=== PATIENT | female | born 1985 | race Caucasian/White ===

== ENCOUNTER 2019-12-17 23:22 | Observation (INO) | payer BC, SELFPAY ==
[2019-12-17 23:26] VITALS: BP 114/83; PULSE 63; RESP 16; TEMP 36.9; O2SAT 96; BMI 32.4
--- NOTE | 2019-12-17 23:48 | HMH.EDGENADL ---
ED Disposition Clinical Impression: Acute pancreatitis Qualifiers: Pancreatitis type: alcohol induced Acute pancreatitis complication: no infection or necrosis Qualified Code(s): K85.20 - Alcohol induced acute pancreatitis without necrosis or infection Disposition: Admitted as Observation Condition on Discharge: Fair Referrals: PCP,No [Primary Care Provider] - - Critical Care Critical Care Time: No Attestation: On 12/17/19, the high probability of a clinically significant, sudden or life threatening deterioration of the following system(s) required my full and direct attention, intervention and personal management. The time I documented below is in addition to time spent performing reported procedures but includes the following listed in this critical care notation. Medical Decision Making - Medical Records Medical records reviewed: Yes: I reviewed the patient's medical records. - Ramses Inquiry Pt receiving controlled substance: Yes Ramses was queried for this patient: Yes Reference #:: [id number] Risks and benefits of using a controlled substance: were not discussed with pt by me Comment: 6 rxs. last rx pregabilin. Vital Signs: 12/17/19 23:26 Temperature 98.4 F Temperature Source Oral Pulse Rate [Right Radial] 63 Respiratory Rate 16 Blood Pressure [Left Arm] 114/83 Blood Pressure Mean [Left Arm] 93 Blood Pressure Source [Left Arm] Automatic Cuff Blood Pressure Position [Left Arm] Supine 02 Sat by Pulse Oximetry 96 Oxygen Delivery Method Room Air - Lab Data Lab results reviewed: Yes: I reviewed the patient's lab results. Lab Results 12/17/19 23:50: WBC 10.0, RBC 4.68, Hgb 14.7, Hct 43.7, MCV 93.3, MCH 31.5 H, MCHC 33.7, RDW 13.5, Plt Count 208, MPV 8.3, Neut % (Auto) 53.0, Lymph % (Auto) 35.5, [place] % (Auto) 3.8, Eos % (Auto) 6.4, Baso % (Auto) 1.2, Neut # (Auto) 5.3, Lymph # (Auto) 3.6, [place] # (Auto) 0.4, Eos # (Auto) 0.6 H, Baso # (Auto) 0.1 12/17/19 23:50: Urine Color Yellow, Urine Appearance Clear, Urine pH 7.0, Ur Specific [place] 1.020, Urine Protein Negative, Urine Glucose (UA) Negative, Urine Ketones Negative, Urine Blood Negative, Urine Nitrate Negative, Urine Bilirubin Negative, Urine Urobilinogen 0.2, Ur Leukocyte Esterase Negative, Ur Squamous Epith Cells Occasional 12/17/19 23:50: Sodium 139, Potassium 3.9, Chloride 104, Carbon Dioxide 26, Anion Gap 12.9, BUN 11, Creatinine 0.60, Estimated Creat Clear 188, Estimated GFR 116, Est GFR ( Amer) 140, Glucose 95, Calcium 9.9, Total Bilirubin 0.2, AST 31, ALT 24, Alkaline Phosphatase 71, Total Protein 7.3, Albumin 4.5, Globulin 2.8, Albumin/Globulin Ratio 1.6, Amylase 137 H, Lipase 985 H 12/17/19 23:50: Serum HCG, Qual Negative 12/17/19 23:50: SARS-CoV-2 IgG Ab (Rapid) Negative, SARS-CoV-2 IgM Ab (Rapid) Negative 12/17/19 23:50: Plasma/Serum Alcohol < 10 Result diagrams: 12/17/19 23:50 12/17/19 23:50 Orders (Tests/Meds): ED MEDICATIONS Generic Name Dose Route Start Last Admin Trade Name Karen PRN Reason Stop Dose Admin Sodium Chloride 8 ml 12/18/19 00:12 Sodium Chloride 0.9% 10ml Vial IV 01/17/20 00:11 NEEDED PRN dilute pepcid Discontinued Medications Generic Name Dose Route Start Last Admin Trade Name [place] PRN Reason Stop Dose Admin Famotidine 20 mg 12/18/19 00:12 12/18/19 00:31 Famotidine 20mg/2ml Vial IV 12/18/19 00:13 20 mg ONCE ONE Administration Ioversol 75 ml 12/18/19 01:06 12/18/19 01:06 Ioversol-350 (74%) 100ml Vial IV 12/18/19 01:07 75 ml ONCE ONE Administration Protocol Ketorolac Tromethamine 30 mg 12/18/19 00:12 12/18/19 00:32 Ketorolac 30mg/Ml Vial IV 12/18/19 00:13 30 mg ONCE ONE Administration Metoclopramide HCl 5 mg 12/18/19 00:12 12/18/19 00:31 Metoclopramide Hcl 10mg/2ml Vial IVP 12/18/19 00:13 5 mg ONCE ONE Administration Morphine Sulfate 4 mg 12/18/19 01:15 Morphine 4mg/Ml Syringe IV 12/18/19 01:16 ONCE ONE Ondansetron HCl 4
[2019-12-18] VITALS (12 sets, daily range): BP systolic 90–131; BP diastolic 47–79; PULSE 54–91; RESP 14–19; TEMP 36.5–36.9; O2SAT 93–100; BMI 32.6
[2019-12-18 00:03] LABS: Basophils # 0.1 K/mm3 (0-0.2); Basophils % 1.2 % (0.1-2.0); Eosinophils # 0.6 K/mm3 (0.0-0.4); Eosinophils % 6.4 % (0.1-12.0); Hematocrit 43.7 % (37.0-47.0); Hemoglobin 14.7 g/dL (12.2-16.2); Lymphocytes # 3.6 K/mm3 (0.7-4.5); Lymphocytes % 35.5 % (10-50); Mean Corpuscular HGB Conc 33.7 g/dL (31.8-35.4); Mean Corpuscular Hemoglobin 31.5 pg (27.0-31.2); Mean Corpuscular Volume 93.3 fl (81-99); Mean Platelet Volume 8.3 fl (7.4-10.4); Monocytes # 0.4 K/mm3 (0.1-1.0); Monocytes % 3.8 % (1.7-9.3); Neutrophils # 5.3 K/mm3 (1.8-7.8); Platelet Count 208 K/mm3 (142-424); Red Blood Count 4.68 M/mm3 (4.20-5.40); Red Cell Distribution Width 13.5 % (11.5-17.5)
[2019-12-18 00:04] LABS: Microscopic,Cath URINE MICROSCOPIC (MICROSCOPIC)
[2019-12-18 00:09] LABS: Alanine Aminotransferase 24 U/L (12-78); Albumin Level 4.5 g/dl (3.5-5.0); Albumin/Globulin Ratio 1.6 (1.1-1.8); Alkaline Phosphatase 71 U/L (38-126); Amylase 137 U/L (30-110); Appearance,Urine/Cath CLEAR (Clear); Aspartate Amino Transferase 31 U/L (14-36); Bilirubin,Cath Negative (Negative); Bilirubin,Total 0.2 mg/dl (0.2-1.3); Blood Urea Nitrogen 11 mg/dl (7-17); Blood, Urine/Cath Negative (Negative); Calcium 9.9 mg/dl (8.4-10.2); Carbon Dioxide 26 mmol/L (22.0-30.0); Chloride 104 mmol/L (98-107); Color,Urine/Cath YELLOW (Yellow); Creatinine Clearance Estimated 188 mL/min (50-200); Estimated Glomerular Filt Rate 116 ml/min (>60); GFR (African American) 140 ML/MIN (>60); Globulin 2.8 g/dL (1.3-3.2); Glucose 95 mg/dl (74-100); Glucose,Urine/Cath (UA) Negative (Negative); Ketones,Urine/Cath Negative (Negative); Leukocyte Esterase,Cath Negative (Negative); Nitrate,Cath Negative (Negative); Potassium 3.9 mmoL/L (3.5-5.1); Protein,Urine/Cath Negative (Negative); Total Protein,Serum 7.3 g/dl (6.3-8.2); Urobilinogen,Cath 0.2 EU/dl (0.2)
[2019-12-18 00:10] LABS: Squamous Epithelial Ur./Cath Occasional #/hpf (0-5)
[2019-12-18 00:12] LABS: HCG Qualitative, Serum Negative (Negative)
[2019-12-18 00:13] LABS: Anion Gap 12.9 mEq/L (5-15); Sodium 139 mmol/L (136-145)
[2019-12-18 00:14] LABS: Lipase 985 U/L (23-300)
--- NOTE | 2019-12-18 00:18 | CT_ITS ---
PROCEDURE: CT ABDOMEN PELVIS W CON CLINICAL INDICATION: pancreatitis COMPARISON: No exams were available for comparison TECHNIQUE: IV Contrast: 75ML OPTIRAY 350 Oral Contrast none given Axial images obtained with sagittal and coronal reformats. All CT scans at the facility use one or more dose reduction, viz: automated exposure control, ma/kV adjustment per patient size (including targeted exams where dose is matched to indication, i.e. head), or iterative reconstruction technique. FINDINGS: Lower thorax: The lower lung sanderson are clear of infiltrate and there is no pleural fluid. There is an incompletely visualized noncalcified nodule right middle lobe 3-4 mm in size, if there is a strong smoking history consider follow-up CT scan chest. There is a well-defined smoothly marginated mass lower portion inner quadrant right breast probably a fibroadenoma and consider follow-up ultrasound right breast for additional evaluation. ABDOMEN: Liver: No masses or biliary dilatation. Gallbladder: Post cholecystectomy Pancreas: No masses or peripancreatic fluid collections. Spleen: unremarkable Adrenals: unremarkable Kidneys/ureters: The kidneys are normal size and show symmetrical function both appearing normal. ABDOMEN & PELVIS: Stomach bowel: The stomach and small bowel appear normal. The appendix is normal. There is moderate scattered stool and gas seen throughout the colon. Peritoneum: No abnormal fluid collections. No obvious inflammatory changes. No free air. Lymph nodes: No enlarged lymph nodes apparent. Vasculature: No evidence of abdominal aortic aneurysm. No retroperitoneal hemorrhage evident. Bones: No acute fracture PELVIS: Reproductive: The uterus is normal in size and in the midline. Bladder: The urinary bladder is moderately distended with urine and appears normal, there is no free fluid in the pelvis. Appendix: Unremarkable. No distention or periappendiceal phlegmonous change. IMPRESSION: No acute abdominal or pelvic pathology identified see discussion above regarding the partially visualized lung nodule and the small right breast mass. Dictated by: Dr. Simone Soto MD 12/18/2019 10:00 Dr. Simone Soto MD in [place] 12/18/2019 10:00
[2019-12-18 01:01] LABS: Coronavirus 19 IgG Antibody Negative (Negative); Coronavirus 19 IgM Antibody Negative (Negative)
[2019-12-18 01:39] LABS: Ethyl Alcohol < 10 mg/dl (0-10)
--- NOTE | 2019-12-18 02:50 | PC.NURSE ---
PT ARRIVED TO FLOOR VIA W/C FROM ED W/STAFF AT 0250
--- NOTE | 2019-12-18 03:38 | PC.NURSE ---
Pt A&OX4 lungs CTA. pt c/o abd pain medicated per APR.
[2019-12-18 06:28] LABS: Lipase 346 U/L (23-300)
--- NOTE | 2019-12-18 10:44 | HMH.HP ---
*Admission Date: 12/17/19 *Chief complaint: Abdominal pain *History of present illness: This 33-year-old white female was admitted through the emergency room with pancreatitis. Amylase and lipase were elevated. She has recently been binge drinking wine. The following is the ER narrative: Complains of midepigastric pain. States that she has had a soreness there for couple of days but it became severe tonight 1 hour after eating pizza. It radiates to her back. Nausea, but no vomiting. She has had prior cholecystectomy and prior pancreatitis. She says the pancreatitis was not gallbladder related, she had already had her gallbladder out. She says she does drink alcohol, she has had a bottle of wine and a couple of shots a day for the past 3 days. Denies fever, diarrhea. She drove herself to the hospital. Her pain feels similar to previous gallbladder and pancreatitis pain. The patient does admit to binge drinking. There is a family history of alcohol abuse. She has had a cholecystectomy for cholelithiasis and cholecystitis. She is not aware of her lipid status. [facility] History Medical History: Reports:: Anxiety Denies:: Cancer, Diabetes Mellitus Type 1, Diabetes Mellitus Type 2, MRSA, Urinary Tract Infection *Have you ever received a pneumonia vaccine?: No *Have you received a flu vaccine this season?: Yes Other Medical History: Reports: Fibromyalgia. Denies: Thyroid Disease Other Surgeries: Yes: Cholecystectomy (2012 cholelithiasis and cholecystitis), Dilation and Curettage. No: Amputation: No Fractures: No - *Social History Last grade of school completed: Some college Smoking Status: Current every day smoker (About 6 cigarettes a day. Has smoked since age of 17) Tobacco Type: cigarettes # Packs/Day (cigarettes): 1 Alcohol Intake: current Alcohol Intake Frequency:: holidays/special occasions only (Admits to binge drinking) Substance Use Type: marijuana Last Used Substance: hours (ago) *Occupational Status:: employed Housing: house Household Members: children (8-year-old autistic son. 6-year-old twin boys.) *Travel in the last 8 weeks: None Family Hx:: Anemia, Asthma, Coronary Artery Disease (Father), Alcoholism (Father and paternal grandmother), Other (Mother with fibromyalgia and neuropathy.) Comment: She has been with her significant other for 12 years. : 2 Para: 2 (Second delivery twins) Review of Systems - Constitutional Reports body ache(s), Reports fatigue - Eyes Reports blurry vision (OS for about 1 year. Describes inflammation ) - ENT Denies abnormal hearing - *Cardiovascular Denies chest pain - *Respiratory Denies chest congestion - *Gastrointestinal Reports abdominal pain, Reports constipation, Denies coffee ground vomit, Denies pain with swallowing, Denies vomiting - *Genitourinary Denies abnormal periods - *Musculoskeletal Reports joint swelling (Knees osteoarthritis ) - Integumentary/Breasts Reports lesions (Known cystic lesion right inferior breast.) - Psychiatric Reports anxiety - Endocrine Denies rapid, pounding, or irregular heartbeat - Hematologic/Lymphatic Denies easy bleeding Meds Home Medications Medication Instructions Recorded Confirmed Type Pregabalin [Lyrica 150mg Cap] 150 mg PO BID 12/18/19 12/18/19 History Allergies Allergy/AdvReac Type Severity Reaction Status Date / Time tramadol Allergy Verified 12/18/19 00:07 Exam Vital signs and Labs for Last 24 Hours: Temp Pulse Resp BP Pulse Ox 98.5 F 61 19 109/57 L 100 12/18/19 08:00 12/18/19 08:00 12/18/19 08:00 12/18/19 08:00 12/18/19 08:00 Laboratory Results - last 24 hr 12/17/19 23:50: WBC 10.0, RBC 4.68, Hgb 14.7, Hct 43.7, MCV 93.3, MCH 31.5 H, MCHC 33.7, RDW 13.5, Plt Count 208, MPV 8.3, Neut % (Auto) 53.0, Lymph % (Auto) 35.5, [place] % (Auto) 3.8, Eos % (Auto) 6.4, Baso % (Auto) 1.2, Neut # (Auto) 5.3, Lymph # (Auto) 3.6, [place] # (Auto) 0.4, Eos # (Auto) 0.
[2019-12-18 11:28] LABS: Erythrocyte Sedimentation Rate 14 mm/hr (0-20)
[2019-12-18 11:49] LABS: Thyroid Stimulating Hormone 5.68 uIU/mL (0.465-4.68)
[2019-12-18 12:07] LABS: Vitamin B12 591 pg/mL (239-931)
--- NOTE | 2019-12-18 14:29 | P.CONPHA_ITS ---
[facility] Pharmacy VTE Monitoring - Patient Demographics Admission date: 12/18/19 Report Date: 12/18/19 Time: 14:29 Allergies/Adverse Reactions: Patient Allergies tramadol Allergy (Verified 12/18/19 00:07) Height: 1.65 m Weight: 88.9 kg Patient Problems: Current Active Problems Acute pancreatitis (Acute) Alcohol consumption binge drinking (Acute) Anxious depression (Acute) Necrobiosis lipoidica (Acute) Cyst of right breast (Acute) Blurry vision, left eye (Acute) Fibromyalgia (Acute) - VTE Risk Labs: VTE Related Lab Results Hgb 14.7 g/dL (12.2-16.2) 12/17/19 23:50 Hct 43.7 % (37.0-47.0) 12/17/19 23:50 Plt Count 208 K/mm3 (142-424) 12/17/19 23:50 BUN 11 mg/dl (7-17) 12/17/19 23:50 Creatinine 0.60 mg/dl (0.52-1.04) 12/17/19 23:50 Estimated Creat Clear 188 mL/min (50-200) 12/17/19 23:50 Was VTE Risk Assessment Performed: Yes VTE Score: 0 VTE Risk Level: Very Low Risk - Prophylaxis VTE Prophylaxis Ordered?: Yes Types of VTE Prophylaxis: TEDS Knee High Location of Applied Device: Bilateral Lower Extremeties
--- NOTE | 2019-12-18 17:40 | PC.NURSE ---
PATIENT A&O X4, LUNGS CLEAR, PULSES EQUAL. AMBDOMEN SOFT, TENDER TO TOUCH. PATIENT AMBULATES IN ROOM, SELF SHOWERED. TOLERATES CLEAR LIQUID DIET. PATIENT COMPLAINS OF PAIN 09/01. THIS RN ADMINISTERED PAIN MEDICATION ORDERED. PATIENT COMPLAINED OF MORPHINE NOT KEEPING PAIN LEVEL DOWN. THIS RN PHONED DR. MARY ALICE MD ORDERED LEVSIN 0.125MG Q6HRS. NO OTHER CONCERNS AT THIS TIME.
--- NOTE | 2019-12-18 20:00 | PC.NURSE ---
K-pad applied to pt's abdomen at this time. MD Amanda requested for GI consult to be ordered for am. Orders placed at this time.
[2019-12-19] VITALS (19 sets, daily range): BP systolic 90–142; BP diastolic 60–97; PULSE 42–74; RESP 16–20; TEMP 36.4–36.9; O2SAT 93–100; BMI 31.8; BMI 31.9
--- NOTE | 2019-12-19 02:48 | PC.NURSE ---
Pt is alert and oriented x4. No acute changes noted from previous shift. Upon beginning of shift pt noted crying in bed. States the morphine is not working for her and she needs something stronger for the pain. Rates pain 9/10 on pain scale at this time. Spoke with Vasiliy NAIDU, gave order for one time dose of Morphine 2 mg IV for pain. Administered per MAR. Applied K-pad to abdomen for pain relief. Pt states the k-pad has helped tremendously with the pain this shift. Pt tolerated the one time dose of Morphine well, upon reassessment pt noted rested with eyes closed. Pt rested well intermittently t/o shift. Also administered Morphine 4 mg per APR q4h prn, pt tolerated well. Bilateral breath sounds noted clear t/o upon auscultation. Tolerated RA well with no c/o SOA. Abdomen noted soft and tender upon midline upper quads. Remains NPO since 0000 for GI consult in am, pt aware. Pt tolerates ambulation well independently to and from bathroom. Adequate urine output noted thus far this shift. Urine noted clear and bright yellow in color. No BM thus far. No edema noted. Refused TEDS. VSS. Remains safe. Call light within reach. Will continue to monitor.
[2019-12-19 07:13] LABS: Amylase 54 U/L (30-110); Lipase 42 U/L (23-300)
--- NOTE | 2019-12-19 08:21 | HMH.ACPN2 ---
Internal Medicine - PN: Subj *Date: 12/19/19 *Time: 08:21 Interval history: Patient is tearful this morning. She states the morphine does not help her abdominal pain at all. She states the Levsin helps a little bit more as does the heating pad. She also is complaining of a headache. She has just had Zofran for nausea. She has been n.p.o. since midnight for a GI consult.. She has not vomited although she is nauseated. Bowels have not moved. She does ambulate to the bathroom without difficulty. Amylase and lipase have returned to normal at 54/42. TSH is slightly elevated at 5.68. Exam Vital signs and Labs for Last 24 Hours: Temp Pulse Resp BP Pulse Ox 97.9 F 56 L 20 124/68 98 12/19/19 07:50 12/19/19 07:50 12/19/19 07:50 12/19/19 07:50 12/19/19 07:50 Laboratory Results - last 24 hr 12/18/19 11:01: ESR 14 12/18/19 11:01: Vitamin B12 591, TSH 5.68 H 12/19/19 05:50: Amylase 54, Lipase 42 I & O for Last 24 hours: Intake & Output 12/16/19 12/17/19 12/18/19 12/19/19 11:59 11:59 11:59 11:59 Intake Total 120 / 120 1453 / 1453 Output Total 700 / 700 Balance 120 / 120 753 / 753 Weight 195 lb 15.855 oz 191 lb 2.252 oz - Constitutional no acute distress Comments: Tearful - *Routine Respiratory Exam Present: CTA bilaterally - *Routine Cardiovascular Exam Present: RRR - *Routine Abdominal Exam Present: soft, normoactive bowel sounds, tenderness (Epigastrium and left upper quadrant.), obese - *Routine Extremities Exam Absent: edema, calf tenderness - *Routine Neurological Exam Present: alert, oriented X3 Assessment and Plan (1) Acute pancreatitis Status: Acute Qualifiers: Pancreatitis type: alcohol induced Acute pancreatitis complication: no infection or necrosis Qualified Code(s): K85.20 - Alcohol induced acute pancreatitis without necrosis or infection Category: Medical Code(s): K85.90 - Acute pancreatitis without necrosis or infection, unspecified (2) Alcohol consumption binge drinking Status: Acute Category: Social Hx Code(s): F10.10 - Alcohol abuse, uncomplicated (3) Anxious depression Status: Acute Category: Medical Code(s): F41.8 - Other specified anxiety disorders (4) Necrobiosis lipoidica Status: Acute Category: Medical Code(s): L92.1 - Necrobiosis lipoidica, not elsewhere classified (5) Cyst of right breast Status: Acute Category: Medical Code(s): N60.01 - Solitary cyst of right breast (6) Blurry vision, left eye Status: Acute Category: Medical Code(s): H53.8 - Other visual disturbances (7) Fibromyalgia Status: Acute Category: Medical Code(s): M79.7 - Fibromyalgia (8) Abdominal pain Status: Acute Category: Medical Code(s): R10.9 - Unspecified abdominal pain - Assessment and plan all Dx Assessment and Plan for all problems:: We will add Pepcid twice daily to see if this helps symptoms. She has a GI consult today.
--- NOTE | 2019-12-19 11:19 | PC.NURSE ---
DURING AM ROUNDS WITH DANIA CUELLAR, PATIENT BEGAN SAYING SHE WAS GOING TO VOMIT. THIS RN PROVIDED A BASIN. PATIENT SAT UP IN BED AND BEGAN STICKING HER FINGER DOWN HER THROAT. THIS RN INSTRUCTED PATIENT TO NOT STICK FINGER DOWN HER THROAT. PATIENT STATED I NEED TO, IT WILL MAKE ME FEEL BETTER. PATIENT CONTINUED TO ATTEMPT TO FORCE HERSELF TO VOMIT. THIS RN INSTRUCTED HER NOT TO FORCE HERSELF TO VOMIT. THIS RN LEFT THE ROOM, PATIENT CALLED FOR RN. PATIENT PROVIDED BASIN WITH YELLOW MUCUS AND STREAKS OF BRIGHT RED BLOOD. PATIENT STATED, THERE IS BLOOD, SOMETHING IS WRONG. THIS RN STATED THAT THE BLOOD IS MORE THAN LIKELY FROM HER PUTTING HER FINGER DOWN HER THROAT AND THAT THE EDG WILL SHOW IF THERE IS SOMETHING ELSE. PATIENT VERBALIZED AN UNDERSTANDING.
--- NOTE | 2019-12-19 12:25 | HMH.ANESCL ---
[facility] Anesthesia Checklist - Patient Identification Patient Identification: Arm Band, Verbal (Name & ) - Structural Data Admitted From: Home Planned Operative Procedure/s: EGD Consent for Planned Operative Procedure(s) Verified: Yes Verified Documents: Surgical Consent, History and Physical - NPO Status Verified Time NPO: 00:00 - Chart Verification Results Verified: CBC, BMP, HCG - Additional verifications Patient : No Anesthesia Reactions: No - Airway Assessment C-Spine Mobility Assessed: Yes (MP 2, TMD 3) TMJ Mobility Assessed: Yes Dentition: Good Dentition - Neurological Assessment Level of Consciousness: Awake, Alert, Appropriate, Follows Commands Hx Seizures: No Numbness or tingling in extremities: No - Anesthesia Plan Anesthesia Risk discussed: Yes Anesthesia Plan: Verified ASA Class: III Anesthesia Type: MAC [facility] History I have reviewed the patient's past medical history: Yes Medical History: Reports:: Anxiety Denies:: Cancer, Diabetes Mellitus Type 1, Diabetes Mellitus Type 2, MRSA, Urinary Tract Infection *Have you ever received a pneumonia vaccine?: No *Have you received a flu vaccine this season?: Yes Other Medical History: Reports: Fibromyalgia. Denies: Thyroid Disease Comment:: obesity Anesthesia experience/problems:: No prior complications Other Surgeries: Yes: Cholecystectomy (2012 cholelithiasis and cholecystitis), Dilation and Curettage. No: Amputation: No Fractures: No - *Social History Last grade of school completed: Some college Smoking Status: Current every day smoker (About 6 cigarettes a day. Has smoked since age of 17) Tobacco Type: cigarettes # Packs/Day (cigarettes): 1 Alcohol Intake: current Alcohol Intake Frequency:: holidays/special occasions only (Admits to binge drinking) Substance Use Type: marijuana Last Used Substance: hours (ago) *Occupational Status:: employed Housing: house Household Members: children (8-year-old autistic son. 6-year-old twin boys.) *Travel in the last 8 weeks: None - Psychiatric History Pschychiatric History:: Reports:: Anxiety Family Hx:: Anemia, Asthma, Coronary Artery Disease (Father), Alcoholism (Father and paternal grandmother), Other (Mother with fibromyalgia and neuropathy.) Para: 2 (Second delivery twins)
--- NOTE | 2019-12-19 12:40 | HMH.PROC ---
[facility] Procedure Note Procedure Note:: Upper Endoscopy Procedure Report: Esophagogastroduodenoscopy with cold biopsies and TTS balloon dilation Endoscopost: Jenaro Heller II, MD Referring Physician: Marly Granger PA-C ([facility]) Date of Procedure: December 19, 2019 Equipment: Olympus GIF 180 standard upper endoscope Sedation: MAC sedation Indications: Mrs. Mcnally is a 34-year-old female who reports excruciating midepigastric abdominal pain. She also has had some midsternal chest pain and pressure, bloating, belching, nausea and early satiety. She has some pyrosis and heartburn. She has not been on any medications. She does have some intermittent globus and dysphagia. She has some chronic constipation with irritable bowel syndrome. She has had some bile emesis and minor hematemesis recently. The patient does have a prior history of pancreatitis and also has intermittent binge alcohol drinking. She has had marked stress and anxiety and cares for her 3 children (twins that are 6 and 8-year-old with autism). The patient did have a mildly elevated lipase level (346). The remainder of her labs revealed normal white blood cell count 10.0, hemoglobin 14.7 and hematocrit 43.7. The patient CT scan of the abdomen and pelvis did show normal appearance to the stomach and small intestine as well as normal appearance to the pancreas. There was a moderate amount of retained stool and gas throughout the colon. The patient has had prior cholecystectomy. Procedure: Prior to the procedure, a history and physical exam was performed, and patient's medications and allergies were reviewed. The risks, benefits and alternatives of the sedation and procedure were discussed with the patient. All questions were answered and informed consent was obtained. The patient was brought to the procedure room. Patient identification and proposed procedure were verified by the physician and the nurse. The patient was placed in a left lateral decubitus position and the scope was passed under direct vision. Throughout the procedure, the patient's blood pressure, pulse, and oxygen saturations were monitored continuously. The upper GI endoscopy was accomplished without difficulty. The patient tolerated the procedure well. Findings: The scope was passed directly into the upper esophagus and advanced to the third portion of the duodenum. The post bulbar duodenum and duodenal bulb were normal with normal mucosa and conniventes. Cold biopsies were taken from the second portion of the duodenum and duodenal bulb to rule out celiac disease. The scope was withdrawn through a normal duodenal bulb and pylorus into the stomach. There was moderate to marked bile reflux with moderate linear reactive gastropathy. The remainder of the antrum, body and fundus of the stomach were grossly normal. Upon retroflexion there was no hiatal hernia. 2 biopsies were taken in the antrum and along the lesser curvature for histology to rule out gastritis and/or H pylori. The scope was then withdrawn into the esophagus. There was no evidence of reflux esophagitis or Youngblood's. There was no Schatzki's ring. There were strong tertiary contractions and evidence of moderate esophageal dysmotility. The entire esophagus was dilated to 60 Pashto/20 mm with a TTS hydrostatic balloon. There was some mild resistance at the cricopharyngeus. The remainder of the esophageal mucosa was normal. Impression: 1. Nonerosive GERD with moderate esophageal dysmotility and cricopharyngeal spasm 2. Moderate bile reflux with moderate linear reactive gastropathy Plan: I will follow-up the biopsies. 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 I would recommend dietary measures, fiber bowel regimen and additional treatment for visceral sensitivity. We will discuss the findings as well as treatment options today.
--- NOTE | 2019-12-19 13:45 | SUR.PHASEII ---
DR GONZALEZ WAS AT BEDSIDE TO DISCUSS TREATMENT PLAN OF BUSPAR, KONSUL AND MIRILAX DAILY, AND DIET SHEET. FOLLOW UP WITH STALIN 03/05/20 @ 3:00PM. PT VERBALIZED UNDERSTANDING OF ALL INFO. REPORT CALLED TO TAMIKO WALKER ON MED/SURG FLOOR AND TRANSFERRED PER W/C
--- NOTE | 2019-12-19 17:22 | PC.NURSE ---
PATIENT A&O X4, LUNGS CLEAR, PULSES EQUAL. PATIENT TOLERATED EGD WELL. PATIENT HAS HAD COMPLAINT OF PAIN AND NAUSEA SINCE ARRIVING BACK ON FLOOR. THIS RN ADMINISTERED MEDICATIONS ACCORDINGLY. PATIENT AMBULATES IN ROOM, TOLERATES WELL. NO OTHER CONCERNS AT THIS TIME.
--- NOTE | 2019-12-19 17:50 | HMH.CONS ---
*Admission Date: 12/18/19 *Reason for consult:: Abdominal pain/pancreatitis *History of present illness: This is a 34-year-old female patient who was admitted through the ER for abdominal pain. She admits to binge drinking over the weekend and has history of pancreatitis, once due to gallstones and then again a year ago for unknown reason. Upon arrival the patient's amylase was 137 and her lipase was 985 but she had no CT evidence of pancreatitis at that time. Her ESR and LFTs were all within normal limits. Since admission with IV fluids, her amylase and lipase have come down to within normal limits of 54/42 today. The patient reports that she is not drink every day and she will go weeks without any alcohol use. She does report that she occasionally binge drinks. She admits to a bottle of wine plus couple of shots for 3 days in a row prior to this pancreatitis episode. Even though her amylase and lipase have completely normalized with no evidence of pancreatitis on CT scan she still has significant epigastric discomfort. It does show moderate stool and gas throughout her colon on CT. She rates it a 10 out of 10 and is tearful in the room when discussing it today. She also notes severe nausea and occasional vomiting. On exam she is guarding and quite tender to palpation epigastric area is mildly tender in left upper and left lower quadrant. She denies any NSAID use but for maybe a couple of times per month. She does use marijuana every day. Her only medical history of fibromyalgia. She reports some occasional heartburn but she does not take anything for it as it goes away on its own. She does report some occasional constipation and has not had a bowel movement since admission to the hospital. She did have cholecystectomy in 2011. [facility] History I have reviewed the patient's past medical history: Yes Medical History: Reports:: Anxiety Denies:: Cancer, Diabetes Mellitus Type 1, Diabetes Mellitus Type 2, MRSA, Seizures, Urinary Tract Infection *Have you ever received a pneumonia vaccine?: No *Have you received a flu vaccine this season?: Yes Other Medical History: Reports: Fibromyalgia. Denies: Thyroid Disease Anesthesia experience/problems:: No prior complications Other Surgeries: Yes: Cholecystectomy (2012 cholelithiasis and cholecystitis), Dilation and Curettage. No: Amputation: No Fractures: No - *Social History Last grade of school completed: Some college Smoking Status: Current every day smoker (About 6 cigarettes a day. Has smoked since age of 17) Tobacco Type: cigarettes # Packs/Day (cigarettes): 1 Alcohol Intake: current Alcohol Intake Frequency:: holidays/special occasions only (Admits to binge drinking) Substance Use Type: marijuana Last Used Substance: hours (ago) *Occupational Status:: employed Housing: house Household Members: children (8-year-old autistic son. 6-year-old twin boys.) *Travel in the last 8 weeks: None - Psychiatric History Pschychiatric History:: Reports:: Anxiety Family Hx:: Anemia, Asthma, Coronary Artery Disease (Father), Alcoholism (Father and paternal grandmother), Other (Mother with fibromyalgia and neuropathy.) Para: 2 (Second delivery twins) Review of Systems - Constitutional Reports fatigue, Reports headache(s), Denies anorexia, Denies chills, Denies weakness - Eyes Denies change in vision - ENT Denies difficulty swallowing, Denies bad breath, Denies hoarseness, Denies mouth lesions, Denies sore throat, Denies throat swelling, Denies tongue swelling Comments: She does report occasional heartburn that resolves on its own - *Cardiovascular Denies chest pain, Denies shortness of breath, Denies leg swelling - *Respiratory Denies chest congestion, Denies cough, Denies shortness of breath, Denies stridor, Denies wheezing - *Gastrointestinal Reports abdominal pain, Reports constipation, Reports heartburn, Reports nausea, Reports vomiting, Denies belching, Denies bloating, Denies [place]
--- NOTE | 2019-12-19 19:13 | PC.NURSE ---
report given to tomas
[2019-12-19 23:16] LABS: RA Latex Turbid. <10.0 IU/mL (0.0-13.9)
[2019-12-20 04:00] VITALS: BP 108/49; PULSE 52; RESP 18; TEMP 36.7; O2SAT 95
--- NOTE | 2019-12-20 04:17 | PC.NURSE ---
Pt has slept intermittently this shift. Morphine has been administered thrice thus far in shift for pain control. Denies nausea/soa. Pt ambulates without difficulty.
[2019-12-20 05:00] VITALS: BMI 33.2
[2019-12-20 07:34] VITALS: BP 116/88; PULSE 84; RESP 20; TEMP 36.7; O2SAT 98
--- NOTE | 2019-12-20 08:09 | HMH.ACPN2 ---
Internal Medicine - PN: Subj *Date: 12/20/19 *Time: 08:09 Interval history: Patient states she feels no better. She states her pain is no better. She would rather have Dilaudid and morphine. She reports EGD yesterday. She has been started on buspirone per Dr. Heller. She states that sometimes this has helped. She continues with nausea. She states she did vomit yesterday. She states she is not able to eat. Her bowels have not moved since before admission. She states she is not passing any gas. She has ambulated to the bathroom but has not been out of bed otherwise. Exam Vital signs and Labs for Last 24 Hours: Temp Pulse Resp BP Pulse Ox 98.0 F 84 20 116/88 98 12/20/19 07:34 12/20/19 07:34 12/20/19 07:34 12/20/19 07:34 12/20/19 07:34 Laboratory Results - last 24 hr 12/18/19 05:40: Rheumatoid Factor Titer <10.0 I & O for Last 24 hours: Intake & Output 12/17/19 12/18/19 12/19/19 12/20/19 11:59 11:59 11:59 11:59 Intake Total 120 / 120 1453 / 1453 3269 / 3269 Output Total 700 / 700 Balance 120 / 120 753 / 753 3269 / 3269 Weight 195 lb 15.855 oz 191 lb 2.252 oz 199 lb 4.766 oz - Constitutional no acute distress Comments: Continues to cry whenever talking with her. - *Routine Respiratory Exam Present: CTA bilaterally (Anteriorly and posteriorly) - *Routine Cardiovascular Exam Present: RRR - *Routine Abdominal Exam Present: soft, normoactive bowel sounds, tenderness (In all upper quadrants) - *Routine Extremities Exam Absent: edema - *Routine Neurological Exam Present: alert, oriented X3 - Routine Psychiatric Exam Comments: Tearful. States it [birth year] yesterday. States she has 3 children at home. States she still has terrible pain. Assessment and Plan (1) Acute pancreatitis Status: Acute Qualifiers: Pancreatitis type: alcohol induced Acute pancreatitis complication: no infection or necrosis Qualified Code(s): K85.20 - Alcohol induced acute pancreatitis without necrosis or infection Category: Medical Code(s): K85.90 - Acute pancreatitis without necrosis or infection, unspecified (2) Alcohol consumption binge drinking Status: Acute Category: Social Hx Code(s): F10.10 - Alcohol abuse, uncomplicated (3) Anxious depression Status: Acute Category: Medical Code(s): F41.8 - Other specified anxiety disorders (4) Necrobiosis lipoidica Status: Acute Category: Medical Code(s): L92.1 - Necrobiosis lipoidica, not elsewhere classified (5) Cyst of right breast Status: Acute Category: Medical Code(s): N60.01 - Solitary cyst of right breast (6) Blurry vision, left eye Status: Acute Category: Medical Code(s): H53.8 - Other visual disturbances (7) Fibromyalgia Status: Acute Category: Medical Code(s): M79.7 - Fibromyalgia (8) Abdominal pain Status: Acute Category: Medical Code(s): R10.9 - Unspecified abdominal pain - Assessment and plan all Dx Assessment and Plan for all problems:: Patient has been started on buspirone and is on Pepcid plan as well. Encouraged to increase her activity. We will add MiraLAX.
[2019-12-20 15:26] VITALS: BP 114/75; PULSE 57; RESP 20; TEMP 36.8; O2SAT 99
[2019-12-20 20:00] VITALS: BP 114/59; PULSE 50; RESP 17; TEMP 36.9; O2SAT 100
--- NOTE | 2019-12-20 20:06 | PC.NURSE ---
PATIENT A&O X4, LUNGS CLEAR, PULSES EQUAL. PATIENT AMBULATES IN ROOM, STEADY GAIT, UP TO CHAIR FOR MOST OF THIS RN SHIFT. PATIENT REQUESTED THAT THIS RN ASK MD FOR A LONGER LASTING PAIN MEDICATION, SOMETHING THAT WILL HELP IN BETWEEN THE MORPHINE. 1412: EVS PRESENTED TO THIS RN A SMALL LIGHT BLUE PILL THAT WAS FOUND ON PATIENT'S TOILET. 1415: PHARMACY IDENTIFIED PILL CLONAZEPAM 1425: THIS RN SPOKE WITH DR. WHEAT, REPORTED FINDING OF PILL AND PATIENT'S REQUEST. NO NEW ORDERS. NO NEW CONCERNS AT END OF THIS RN SHIFT.
[2019-12-21 04:00] VITALS: BP 107/69; PULSE 44; RESP 19; TEMP 36.6; O2SAT 98
--- NOTE | 2019-12-21 04:45 | PC.NURSE ---
Addendum entered by Sherrill Persaud RN 12/21/19 05:03: Pt has had no BM this shift. Original Note: Pt is currently sleeping in bed. Pt has c/o RLQ stabbing pain t/o this shift. PRN pain meds given per APR. Bilat lung sounds are clear t/o. Actvie bowel sounds heard in all 4 quads. Pt did have x1 episode of N/V this shift. Pt refused PO phenergan this shift stating it makes me too drowsy Pt requested PRN zofran in replace of scheduled phenergan. Pt has stated she is getting very little relief from PRN morphine. This nurse has offered warm blankets, suggested to pt to apply kpad to abdomen, and position changes with little relief. Pt did take a shower this shift and stated some relief from that. Pt has ambulated to and from bathroom multiple times this shift. Gait and balance remains satisfactory. No other complaints or acute changes this shift. Will continue to monitor.
[2019-12-21 05:00] VITALS: BMI 33.4
--- NOTE | 2019-12-21 06:31 | PC.NURSE ---
Since last note, pt has had a BM. Pt states BM was dark brown and hard . Pt is also c/o throat pain. Upon assessment throat is pink with no redness noted
[2019-12-21 08:00] VITALS: BP 105/56; PULSE 79; RESP 15; TEMP 36.5; O2SAT 100
--- NOTE | 2019-12-21 08:23 | PC.NURSE ---
PT HAS REFUSED CYMBALTA AT THIS TIME, SHE STATED THAT CYMBALTA MAKES ME REALLY SICK .
--- NOTE | 2019-12-21 09:27 | CT_ITS ---
PROCEDURE: CT ABDOMEN PELVIS W CON CLINICAL INDICATION: persistant pain persistant pain, nausea, clinical suspicion of possible pancreatitis COMPARISON: CT CT ABDOMEN PELVIS W CON from 12/18/2019 TECHNIQUE: IV Contrast: 75ML OPTIRAY 350 Oral Contrast 20ml Gastroview Axial images obtained with sagittal and coronal reformats. All CT scans at the facility use one or more dose reduction, viz: automated exposure control, ma/kV adjustment per patient size (including targeted exams where dose is matched to indication, i.e. head), or iterative reconstruction technique. FINDINGS: Lower thorax: There is minimal bilateral basilar atelectasis or scarring. There is no pleural fluid. Cardiac size is borderline. ABDOMEN: Liver: No masses or biliary dilatation. Gallbladder: Nondistended. No radio opaque stones. Pancreas: The pancreas is normal in size and there are no findings to suggest pancreatitis. Spleen: unremarkable Adrenals: unremarkable Kidneys/ureters: The kidneys are normal in size and show symmetrical function both appearing normal. ABDOMEN & PELVIS: Stomach bowel: The stomach and duodenal sweep appear normal. The small bowel is well opacified with oral contrast and appears normal. The appendix is normal. There is a large amount stool in the upper ascending colon and hepatic flexure. The descending and sigmoid colon are decompressed. The rectum is decompressed as well and appears normal. Peritoneum: No abnormal fluid collections. No obvious inflammatory changes. No free air. Lymph nodes: No enlarged lymph nodes apparent. Vasculature: No evidence of abdominal aortic aneurysm. No retroperitoneal hemorrhage evident. Bones: No acute fracture PELVIS: Reproductive: unremarkable the uterus is normal in size and in the midline. The bilateral ovaries appear normal. There is a small amount of fluid in the cul-de-sac slightly more than typically seen due to physiologic causes. Cul-de-sac fluid was not seen on the recent exam 12/18/2019 Bladder: The urinary bladder is moderately distended with urine and appears normal. Appendix: Unremarkable. No distention or periappendiceal phlegmonous change. IMPRESSION: No definite findings for pancreatitis. Large amount of right-sided stool, new finding of small to moderate amount of cul-de-sac fluid representing the only real interval change in the study from the recent exam. Dictated by: Dr. Simone Soto MD 12/21/2019 13:24 Dr. Simone Soto MD in [facility] 12/21/2019 13:24
--- NOTE | 2019-12-21 09:32 | HMH.ACPN2 ---
Internal Medicine - PN: Subj *Date: 12/21/19 *Time: 09:32 Interval history: She continues to complain of abdominal pain and requires pain medication. She had a normal bowel movement this morning. During the night she had some acute pain in the right lower quadrant and vomited. Her abdomen is soft with some tenderness in the right lower quadrant. Exam Vital signs and Labs for Last 24 Hours: Temp Pulse Resp BP Pulse Ox 97.9 F 44 L 19 107/69 L 98 12/21/19 04:00 12/21/19 04:00 12/21/19 04:00 12/21/19 04:00 12/21/19 04:00 I & O for Last 24 hours: Intake & Output 12/18/19 12/19/19 12/20/19 12/21/19 11:59 11:59 11:59 11:59 Intake Total 120 / 120 1453 / 1453 3629 / 3629 1920 / 1920 Output Total 700 / 700 Balance 120 / 120 753 / 753 3629 / 3629 1920 / 1920 Weight 195 lb 15.855 oz 191 lb 2.252 oz 199 lb 4.766 oz 200 lb 9.93 oz - Constitutional no acute distress - *Routine Respiratory Exam Present: CTA bilaterally - *Routine Cardiovascular Exam Present: RRR - *Routine Abdominal Exam Present: soft, normoactive bowel sounds, tenderness (Right lower quadrant), obese - *Routine Extremities Exam Absent: edema Assessment and Plan (1) Acute pancreatitis Status: Acute Qualifiers: Pancreatitis type: alcohol induced Acute pancreatitis complication: no infection or necrosis Qualified Code(s): K85.20 - Alcohol induced acute pancreatitis without necrosis or infection Category: Medical Code(s): K85.90 - Acute pancreatitis without necrosis or infection, unspecified (2) Alcohol consumption binge drinking Status: Acute Category: Social Hx Code(s): F10.10 - Alcohol abuse, uncomplicated (3) Anxious depression Status: Acute Category: Medical Code(s): F41.8 - Other specified anxiety disorders (4) Necrobiosis lipoidica Status: Acute Category: Medical Code(s): L92.1 - Necrobiosis lipoidica, not elsewhere classified (5) Cyst of right breast Status: Acute Category: Medical Code(s): N60.01 - Solitary cyst of right breast (6) Blurry vision, left eye Status: Acute Category: Medical Code(s): H53.8 - Other visual disturbances (7) Fibromyalgia Status: Acute Category: Medical Code(s): M79.7 - Fibromyalgia (8) Abdominal pain Status: Acute Category: Medical Code(s): R10.9 - Unspecified abdominal pain - Assessment and plan all Dx Assessment and Plan for all problems:: Repeat lab work. Saline lock IV. Repeat CT scan with contrast due to persistent pain.
[2019-12-21 10:45] LABS: Basophils # 0.1 K/mm3 (0-0.2); Basophils % 0.8 % (0.1-2.0); Eosinophils # 0.3 K/mm3 (0.0-0.4); Eosinophils % 4.3 % (0.1-12.0); Hematocrit 39.9 % (37.0-47.0); Lymphocytes # 2.6 K/mm3 (0.7-4.5); Lymphocytes % 36.2 % (10-50); Mean Corpuscular HGB Conc 32.6 g/dL (31.8-35.4); Mean Corpuscular Hemoglobin 31.7 pg (27.0-31.2); Mean Corpuscular Volume 97.4 fl (81-99); Mean Platelet Volume 8.2 fl (7.4-10.4); Monocytes # 0.2 K/mm3 (0.1-1.0); Monocytes % 2.9 % (1.7-9.3); Neutrophils # 4.1 K/mm3 (1.8-7.8); Neutrophils % 55.9 % (37.0-80.0); Platelet Count 177 K/mm3 (142-424); Red Cell Distribution Width 13.4 % (11.5-17.5); White Blood Count 7.3 K/mm3 (4.8-10.8)
[2019-12-21 10:59] LABS: Chloride 106 mmol/L (98-107); Sodium 142 mmol/L (136-145)
[2019-12-21 11:00] LABS: Potassium 3.3 mmoL/L (3.5-5.1)
[2019-12-21 11:01] LABS: Lipase 56 U/L (23-300)
[2019-12-21 11:02] LABS: Alanine Aminotransferase 26 U/L (12-78); Amylase 112 U/L (30-110); Anion Gap 8.3 mEq/L (5-15); Aspartate Amino Transferase 40 U/L (14-36); Blood Urea Nitrogen 5 mg/dl (7-17); Carbon Dioxide 31 mmol/L (22.0-30.0); Creatinine Clearance Estimated 164 mL/min (50-200); Estimated Glomerular Filt Rate 96 ml/min (>60); GFR (African American) 117 ML/MIN (>60)
[2019-12-21 11:03] LABS: Albumin Level 3.7 g/dl (3.5-5.0); Albumin/Globulin Ratio 1.5 (1.1-1.8); Alkaline Phosphatase 54 U/L (38-126); Bilirubin,Total 0.5 mg/dl (0.2-1.3); Calcium 8.4 mg/dl (8.4-10.2); Globulin 2.4 g/dL (1.3-3.2); Glucose 87 mg/dl (74-100); Total Protein,Serum 6.1 g/dl (6.3-8.2)
--- NOTE | 2019-12-21 15:09 | DIET.NUTRFU ---
Pt states she has thrown up after majority of meals but that everything is good and has no diet change requests. PO intake 50-75% with well tolerance documented all meals. Pt has been educated on nausea management and making bland menu selections as well as on her therapeutic diet. Weight up 3# t/o stay. Continuing to monitor pt/further diagnostic findings.
[2019-12-21 16:00] VITALS: BP 106/58; PULSE 44; RESP 14; TEMP 36.1; O2SAT 99
--- NOTE | 2019-12-21 18:29 | P.PN_ITS ---
Internal Medicine - PN: Subj *Date: 12/21/19 *Time: 18:29 Interval history: CT report shows new fluid in Cul-de-sac. Ruptured cyst? Vaginitis? Will request Converting Supervisor consult. Vaginal culture ordered. Exam Vital signs and Labs for Last 24 Hours: Temp Pulse Resp BP Pulse Ox 97.0 F L 44 L 14 106/58 L 99 12/21/19 16:00 12/21/19 16:00 12/21/19 16:00 12/21/19 16:00 12/21/19 16:00 Laboratory Results - last 24 hr 12/21/19 10:10: WBC 7.3, RBC 4.10 L, Hgb 13.0, Hct 39.9, MCV 97.4, MCH 31.7 H, MCHC 32.6, RDW 13.4, Plt Count 177, MPV 8.2, Neut % (Auto) 55.9, Lymph % (Auto) 36.2, [place] % (Auto) 2.9, Eos % (Auto) 4.3, Baso % (Auto) 0.8, Neut # (Auto) 4.1, Lymph # (Auto) 2.6, [place] # (Auto) 0.2, Eos # (Auto) 0.3, Baso # (Auto) 0.1 12/21/19 10:10: Sodium 142, Potassium 3.3 L, Chloride 106, Carbon Dioxide 31 H, Anion Gap 8.3, BUN 5 L, Creatinine 0.70, Estimated Creat Clear 164, Estimated GFR 96, Est GFR ( Amer) 117, Glucose 87, Calcium 8.4, Total Bilirubin 0.5, AST 40 H, ALT 26, Alkaline Phosphatase 54, Total Protein 6.1 L, Albumin 3.7, Globulin 2.4, Albumin/Globulin Ratio 1.5, Amylase 112 H 12/21/19 10:10: Lipase 56 I & O for Last 24 hours: Intake & Output 12/19/19 12/20/19 12/21/19 12/22/19 11:59 11:59 11:59 11:59 Intake Total 1453 / 1453 0619 / 3629 2039 Output Total 700 / 700 Balance 753 / 753 3629 / 3629 2039 Weight 191 lb 2.252 oz 199 lb 4.766 oz 200 lb 9.93 oz Assessment and Plan (1) Acute pancreatitis Status: Acute Qualifiers: Pancreatitis type: alcohol induced Acute pancreatitis complication: no infection or necrosis Qualified Code(s): K85.20 - Alcohol induced acute pancreatitis without necrosis or infection Category: Medical Code(s): K85.90 - Acute pancreatitis without necrosis or infection, unspecified (2) Alcohol consumption binge drinking Status: Acute Category: Social Hx Code(s): F10.10 - Alcohol abuse, uncomplicated (3) Anxious depression Status: Acute Category: Medical Code(s): F41.8 - Other specified anxiety disorders (4) Necrobiosis lipoidica Status: Acute Category: Medical Code(s): L92.1 - Necrobiosis lipoidica, not elsewhere classified (5) Cyst of right breast Status: Acute Category: Medical Code(s): N60.01 - Solitary cyst of right breast (6) Blurry vision, left eye Status: Acute Category: Medical Code(s): H53.8 - Other visual disturbances (7) Fibromyalgia Status: Acute Category: Medical Code(s): M79.7 - Fibromyalgia (8) Abdominal pain Status: Acute Category: Medical Code(s): R10.9 - Unspecified abdominal pain - Assessment and plan all Dx Assessment and Plan for all problems:: Consult, culture.
--- NOTE | 2019-12-21 18:43 | PC.NURSE ---
SHE IS AO*4, CURRENTLY ON RA, HAS RESTED FOR MOST OF THE DAY, SHE HAS BEEN MEDICATED WITH PRN MORPHINE FOR ABD PAIN *2 THIS SHIFT, HAS C/O N/D, STATED THAT SHE HAD ONE EPISODE OF EMESIS THIS MORNING, THIS RN DID NOT WITNESS PATIENT VOMITING, PT HAS C/O ABD PAIN T/O SHIFT, STATING THAT MORPHINE IS NOT EFFECTIVE, HOWEVER AFTER ADMIN PT IS NOTED TO BE ASLEEP IN ROOM, NO NEEDS AT THIS TIME, WILL CONTINUE TO MONITOR.
--- NOTE | 2019-12-21 19:16 | PC.NURSE ---
report given to jessenia
[2019-12-21 20:00] VITALS: BP 120/85; PULSE 46; RESP 17; TEMP 36.6; O2SAT 99
[2019-12-22 04:00] VITALS: BP 110/68; PULSE 47; RESP 18; TEMP 36.6; O2SAT 97
--- NOTE | 2019-12-22 04:15 | PC.NURSE ---
Pt has only slept approx 1 hour thus far into shift. Maintains that pain is not alleviated with Morphine, but shows no objective s/sx of pain while rating pain at 9/10. Genital culture obtained and sent to lab. Denies soa. Pt had shower this evening. left ac iv infiltrated, new iv obtained in rt forearm. Pt does c/o sore throat this shift. Left eye reddened, but pt denies rubbing eye.
[2019-12-22 04:54] VITALS: BMI 32.3
[2019-12-22 07:47] VITALS: BP 117/59; PULSE 65; RESP 17; TEMP 36.7; O2SAT 100
--- NOTE | 2019-12-22 08:45 | HMH.ACPN2 ---
Internal Medicine - PN: Subj *Date: 12/22/19 *Time: 08:45 Interval history: Pt is resting quietly in bed with heating pad to abdomen. She reports her pain is unchanged. She tolerated breakfast without vomiting although she continues with nausea. She had hard BM yesterday. She does describe urinary frequency over the past 2 days. Exam Vital signs and Labs for Last 24 Hours: Temp Pulse Resp BP Pulse Ox 98.0 F 65 17 117/59 L 100 12/22/19 07:47 12/22/19 07:47 12/22/19 07:47 12/22/19 07:47 12/22/19 07:47 Laboratory Results - last 24 hr 12/21/19 10:10: WBC 7.3, RBC 4.10 L, Hgb 13.0, Hct 39.9, MCV 97.4, MCH 31.7 H, MCHC 32.6, RDW 13.4, Plt Count 177, MPV 8.2, Neut % (Auto) 55.9, Lymph % (Auto) 36.2, [place] % (Auto) 2.9, Eos % (Auto) 4.3, Baso % (Auto) 0.8, Neut # (Auto) 4.1, Lymph # (Auto) 2.6, [place] # (Auto) 0.2, Eos # (Auto) 0.3, Baso # (Auto) 0.1 12/21/19 10:10: Sodium 142, Potassium 3.3 L, Chloride 106, Carbon Dioxide 31 H, Anion Gap 8.3, BUN 5 L, Creatinine 0.70, Estimated Creat Clear 164, Estimated GFR 96, Est GFR ( Amer) 117, Glucose 87, Calcium 8.4, Total Bilirubin 0.5, AST 40 H, ALT 26, Alkaline Phosphatase 54, Total Protein 6.1 L, Albumin 3.7, Globulin 2.4, Albumin/Globulin Ratio 1.5, Amylase 112 H 12/21/19 10:10: Lipase 56 I & O for Last 24 hours: Intake & Output 12/19/19 12/20/19 12/21/19 12/22/19 11:59 11:59 11:59 11:59 Intake Total 1453 / 1453 3629 / 3629 2039 240 / 240 Output Total 700 / 700 Balance 753 / 753 3629 / 3629 2039 240 / 240 Weight 191 lb 2.252 oz 199 lb 4.766 oz 200 lb 9.93 oz 194 lb 3.636 oz Microbiology Reports for the Last 24 Hours: Microbiology 12/21/19 22:00 Vaginal Gram Stain - Final - Constitutional no acute distress - *Routine HEENT Exam Head: Present: normocephalic ENT: Present: mucous membranes moist - *Routine Respiratory Exam Present: CTA bilaterally. Absent: rhonchi, wheezes - *Routine Cardiovascular Exam Present: RRR - *Routine Abdominal Exam Present: soft, normoactive bowel sounds, guarding. Absent: distended, firm, rigid Comments: RLQ and suprapubic ttp, mild epigastric ttp - *Routine Extremities Exam Present: full ROM, pulses intact. Absent: edema, calf tenderness - *Routine Neurological Exam Present: alert, oriented X3, moving all extremities, normal speech Assessment and Plan (1) Acute pancreatitis Status: Acute Qualifiers: Pancreatitis type: alcohol induced Acute pancreatitis complication: no infection or necrosis Qualified Code(s): K85.20 - Alcohol induced acute pancreatitis without necrosis or infection Category: Medical Code(s): K85.90 - Acute pancreatitis without necrosis or infection, unspecified (2) Alcohol consumption binge drinking Status: Acute Category: Social Hx Code(s): F10.10 - Alcohol abuse, uncomplicated (3) Anxious depression Status: Acute Category: Medical Code(s): F41.8 - Other specified anxiety disorders (4) Necrobiosis lipoidica Status: Acute Category: Medical Code(s): L92.1 - Necrobiosis lipoidica, not elsewhere classified (5) Cyst of right breast Status: Acute Category: Medical Code(s): N60.01 - Solitary cyst of right breast (6) Blurry vision, left eye Status: Acute Category: Medical Code(s): H53.8 - Other visual disturbances (7) Fibromyalgia Status: Acute Category: Medical Code(s): M79.7 - Fibromyalgia (8) Abdominal pain Status: Acute Category: Medical Code(s): R10.9 - Unspecified abdominal pain - Assessment and plan all Dx Assessment and Plan for all problems:: UA today. PLASTIC J[employer] AND [employer]TURE BUILDER consult. Further per Dr. Amanda.
--- NOTE | 2019-12-22 10:46 | SW/DCPLANNER ---
[employer] (Florence Frazier) and myself went in to speak with this patient regarding discharge plans. Patient stated that she is ready for discharge today and that she will have transportation home.
[2019-12-22 10:48] LABS: Chloride 102 mmol/L (98-107); Sodium 140 mmol/L (136-145)
[2019-12-22 10:51] LABS: Blood Urea Nitrogen 4 mg/dl (7-17); Calcium 9.1 mg/dl (8.4-10.2); Carbon Dioxide 33 mmol/L (22.0-30.0); Creatinine Clearance Estimated 124 mL/min (50-200); Estimated Glomerular Filt Rate 72 ml/min (>60); GFR (African American) 87 ML/MIN (>60); Glucose 86 mg/dl (74-100)
--- NOTE | 2019-12-22 12:05 | HMH.GYNCON ---
DIRECTOR PHARMACOVIGILANCE - CN: HPI - Data of Consult Consult date: 12/22/19 Requesting Physician: Dayana Amanda MD Primary Care Provider: No PCP - Consult Narrative Reason for consult: pelvic pain History of present illness: Ms. Mcnally is a 34 year old female She was admitted to hospital with severe abdominal pain possibly consistent with pancreatitis. She had been binge drinking in the last few days. She has had pancreatitis in the past. She is a G2, P2 with 3 children. Her last was twins. She had upper abdominal pain and then had sudden onset of right lower quadrant pain. Her repeat CT showed that she had some fluid in the pelvis. I suspect she may have had a ruptured ovarian cyst. She has had the same partner for the last 12 years. She has no new partners. Her partner has no new partners. She has not had a normal bowel movement since admission. She said she had a small bowel movement yesterday that was quite hard and firm. The CT scan showed just fluid in the cul-de-sac and copious right-sided stool in the colon. CC: Dayana Amanda MD Review of Systems - Review of Systems Review of systems:: pertinent systems reviewed and negative unless documented below - *Neurologic Reports headache(s), Denies abnormal walking, Denies abnormal hearing, Denies seizure-like activity, Denies dizziness, Denies fainting, Denies tingling, Denies weakness [facility] History I have reviewed the patient's past medical history: Yes Medical History: Reports:: Anxiety Denies:: Cancer, Diabetes Mellitus Type 1, Diabetes Mellitus Type 2, MRSA, Seizures, Urinary Tract Infection *Have you ever received a pneumonia vaccine?: No *Have you received a flu vaccine this season?: Yes Other Medical History: Reports: Fibromyalgia. Denies: Thyroid Disease Anesthesia experience/problems:: No prior complications Other Surgeries: Yes: Cholecystectomy (2012 cholelithiasis and cholecystitis), Dilation and Curettage. No: Amputation: No Fractures: No - *Social History Last grade of school completed: Some college Smoking Status: Current every day smoker (About 6 cigarettes a day. Has smoked since age of 17) Tobacco Type: cigarettes # Packs/Day (cigarettes): 1 Alcohol Intake: current Alcohol Intake Frequency:: holidays/special occasions only (Admits to binge drinking) Substance Use Type: marijuana Last Used Substance: hours (ago) *Occupational Status:: employed Housing: house Household Members: children (8-year-old autistic son. 6-year-old twin boys.) *Travel in the last 8 weeks: None - Psychiatric History Pschychiatric History:: Reports:: Anxiety Family Hx:: Anemia, Asthma, Coronary Artery Disease (Father), Alcoholism (Father and paternal grandmother), Other (Mother with fibromyalgia and neuropathy.) Para: 2 (Second delivery twins) Meds Home Medications Medication Instructions Recorded Confirmed Type Pregabalin [Lyrica 150mg Cap] 150 mg PO BID 12/18/19 12/18/19 History Allergies Allergy/AdvReac Type Severity Reaction Status Date / Time tramadol Allergy Verified 12/18/19 00:07 DIRECTOR PHARMACOVIGILANCE - Exam Vital signs: Temp Pulse Resp BP Pulse Ox 98.0 F 65 17 117/59 L 100 12/22/19 07:47 12/22/19 07:47 12/22/19 07:47 12/22/19 07:47 12/22/19 07:47 - Constitutional no acute distress - Routine HEENT Exam Head: Present: normocephalic Eye: Present: EOMI, PERRL ENT: Present: mucous membranes moist - Routine Neck Exam Present: supple, full ROM - Routine Respiratory Exam Absent: accessory muscle use (good air entry bilaterally), wheezes, crackles - Routine Cardiovascular Exam Present: RRR. Absent: murmur - Routine Abdominal Exam Present: soft, tenderness. Absent: distended, rebound, guarding Comments: She has some tenderness in the right lower quadrant. There are no peritoneal signs. - Routine Rectal Exam Patient deferred: visual exam, digital exam - Routine Exam Patient deferred: external exam, gr
[2019-12-22 16:00] VITALS: BP 131/73; PULSE 54; RESP 17; TEMP 36.6; O2SAT 97
--- NOTE | 2019-12-22 17:45 | PC.NURSE ---
PT AO*4, HAS BEEN MEDICATED WITH MORPHINE PRN *2, PT C/O N/V THIS SHIFT, C/O ABD PAIN, O2 SATS WNL ON RA, NAVNEET SOA, AMBULATES IN ROOM INDEPENDENTLY AND TOLERATES WELL, VSS, NO NEEDS AT THIS TIME, WILL CONTINUE TO MONITOR.
[2019-12-22 20:00] VITALS: BP 126/75; PULSE 61; RESP 17; TEMP 36.7; O2SAT 95
--- NOTE | 2019-12-22 22:19 | PC.NURSE ---
She is A&Ox4. She reports pain in her RLQ that she is receiving PRN pain medication for. She took a shower. She received PRN suppository. She reports her last BM was on 12/21/19 but states it was a small amount. Left sclera injection noted. She states she has seen an gasoline service attendant for it. She was given a saline flush for her eye when needed. Lab called and stated that they spoke with Rafiq about the testing for trich. Lab stated she did not have any in her urine which is how they usually check but a send out could be done if the doctor wanted it. Dr. Boo is not senior control systems engineer. Plan to ask if MD wants swab in the am. Lab states they have a swab for chlamydia and gonorrhea if needed.
--- NOTE | 2019-12-22 22:35 | PC.NURSE ---
Kpad in place on abdomen.
--- NOTE | 2019-12-23 01:57 | PC.NURSE ---
No acute changes.
[2019-12-23 04:00] VITALS: BP 119/44; PULSE 56; RESP 17; TEMP 36.4; O2SAT 94
[2019-12-23 05:00] VITALS: BMI 32.6
[2019-12-23 08:00] VITALS: BP 123/71; PULSE 54; RESP 16; TEMP 36.4; O2SAT 96
--- NOTE | 2019-12-23 08:19 | HMH.ACPN2 ---
Internal Medicine - PN: Subj *Date: 12/23/19 *Time: 08:19 Interval history: She is feeling a little better this morning. She still complains of some lower abdominal pain. The pain seems to be slightly on the right side. She is using a heating pad. She says this helps. We gave her a Dulcolax suppository last night and she did not really have much stool with this. We will try again this morning. Exam Vital signs and Labs for Last 24 Hours: Temp Pulse Resp BP Pulse Ox 97.6 F 56 L 17 119/44 L 94 L 12/23/19 04:00 12/23/19 04:00 12/23/19 04:00 12/23/19 04:00 12/23/19 04:00 Laboratory Results - last 24 hr 12/22/19 10:32: Sodium 140, Potassium 4.0 D, Chloride 102, Carbon Dioxide 33 H, Anion Gap 9.0, BUN 4 L, Creatinine 0.90 D, Estimated Creat Clear 124, Estimated GFR 72, Est GFR ( Amer) 87 D, Glucose 86, Calcium 9.1 I & O for Last 24 hours: Intake & Output 12/20/19 12/21/19 12/22/19 12/23/19 11:59 11:59 11:59 11:59 Intake Total 3629 / 3629 2039 / 0 240 / 240 380 / 380 Balance 3629 / 3629 204 / 2040 240 / 240 380 / 380 Weight 199 lb 4.766 oz 200 lb 9.93 oz 194 lb 3.636 oz 195 lb 15.855 oz Microbiology Reports for the Last 24 Hours: Microbiology 12/22/19 17:00 Vaginal Wet Prep - Final - Constitutional no acute distress - *Routine HEENT Exam Head: Present: normocephalic Eye: Present: EOMI, PERRL ENT: Present: mucous membranes moist Assessment and Plan (1) Acute pancreatitis Status: Acute Qualifiers: Pancreatitis type: alcohol induced Acute pancreatitis complication: no infection or necrosis Qualified Code(s): K85.20 - Alcohol induced acute pancreatitis without necrosis or infection Category: Medical Code(s): K85.90 - Acute pancreatitis without necrosis or infection, unspecified (2) Alcohol consumption binge drinking Status: Acute Category: Social Hx Code(s): F10.10 - Alcohol abuse, uncomplicated (3) Anxious depression Status: Acute Category: Medical Code(s): F41.8 - Other specified anxiety disorders (4) Necrobiosis lipoidica Status: Acute Category: Medical Code(s): L92.1 - Necrobiosis lipoidica, not elsewhere classified (5) Cyst of right breast Status: Acute Category: Medical Code(s): N60.01 - Solitary cyst of right breast (6) Blurry vision, left eye Status: Acute Category: Medical Code(s): H53.8 - Other visual disturbances (7) Fibromyalgia Status: Acute Category: Medical Code(s): M79.7 - Fibromyalgia (8) Abdominal pain Status: Acute Category: Medical Code(s): R10.9 - Unspecified abdominal pain - Assessment and plan all Dx Assessment and Plan for all problems:: She is doing a little better this morning. She still has some right lower quadrant pain. I suspect that she had a ruptured ovarian cyst. I reassured her that the pain should just improve. She may also have some discomfort as result of her constipation as well. We will try another Dulcolax suppository this morning.
--- NOTE | 2019-12-23 09:22 | HMH.ACPN2 ---
Internal Medicine - PN: Subj *Date: 12/23/19 *Time: 09:22 Interval history: There. See the evaluation by Dr. Paige. He concurred that a ruptured ovarian cyst was likely. The patient denies vaginitis or vaginal drainage. A wet prep was ordered and was negative for trichomonas. We will plan discharge today. I stressed the importance of her following up with her primary care provider. She sees a physician machine assistant. I gave her my contact information. Exam Vital signs and Labs for Last 24 Hours: Temp Pulse Resp BP Pulse Ox 97.6 F 56 L 17 119/44 L 94 L 12/23/19 04:00 12/23/19 04:00 12/23/19 04:00 12/23/19 04:00 12/23/19 04:00 Laboratory Results - last 24 hr 12/22/19 10:32: Sodium 140, Potassium 4.0 D, Chloride 102, Carbon Dioxide 33 H, Anion Gap 9.0, BUN 4 L, Creatinine 0.90 D, Estimated Creat Clear 124, Estimated GFR 72, Est GFR ( Amer) 87 D, Glucose 86, Calcium 9.1 I & O for Last 24 hours: Intake & Output 12/20/19 12/21/19 12/22/19 12/23/19 11:59 11:59 11:59 11:59 Intake Total 3629 / 3629 2039 / 2040 240 / 240 380 / 380 Balance 3629 / 3629 2039 / 2040 240 / 240 380 / 380 Weight 199 lb 4.766 oz 200 lb 9.93 oz 194 lb 3.636 oz 195 lb 15.855 oz Microbiology Reports for the Last 24 Hours: Microbiology 12/21/19 22:00 Vaginal Gram Stain - Final 12/21/19 22:00 Vaginal Genital Culture - Preliminary 12/22/19 17:00 Vaginal Wet Prep - Final - Constitutional no acute distress - *Routine HEENT Exam Head: Present: normocephalic Eye: Present: PERRL ENT: Present: mucous membranes moist - *Routine Neck Exam Present: full ROM - *Routine Respiratory Exam Present: CTA bilaterally - *Routine Cardiovascular Exam Present: RRR - *Routine Abdominal Exam Present: soft, tenderness (Minimal). Absent: distended, rebound, guarding - *Routine Extremities Exam Absent: edema - *Routine Skin Exam Absent: petechiae (Slight bruises noted at the right abdomen she states where she was poking at the site) - *Routine Neurological Exam Present: alert, oriented X3 - Routine Psychiatric Exam Present: normal affect (Better today), cooperative Assessment and Plan (1) Acute pancreatitis Status: Acute Qualifiers: Pancreatitis type: alcohol induced Acute pancreatitis complication: no infection or necrosis Qualified Code(s): K85.20 - Alcohol induced acute pancreatitis without necrosis or infection Category: Medical Code(s): K85.90 - Acute pancreatitis without necrosis or infection, unspecified (2) Alcohol consumption binge drinking Status: Acute Category: Social Hx Code(s): F10.10 - Alcohol abuse, uncomplicated (3) Anxious depression Status: Acute Category: Medical Code(s): F41.8 - Other specified anxiety disorders (4) Necrobiosis lipoidica Status: Acute Category: Medical Code(s): L92.1 - Necrobiosis lipoidica, not elsewhere classified (5) Cyst of right breast Status: Acute Category: Medical Code(s): N60.01 - Solitary cyst of right breast (6) Blurry vision, left eye Status: Acute Category: Medical Code(s): H53.8 - Other visual disturbances (7) Fibromyalgia Status: Acute Category: Medical Code(s): M79.7 - Fibromyalgia (8) Abdominal pain Status: Acute Category: Medical Code(s): R10.9 - Unspecified abdominal pain (9) Rupture of cyst of right ovary Status: Acute Category: Medical Code(s): N83.201 - Unspecified ovarian cyst, right side - Assessment and plan all Dx Assessment and Plan for all problems:: Discharge today. See medication list. She was instructed to contact her primary care provider for follow-up.
--- NOTE | 2019-12-23 13:39 | INFXCTL.NOTE ---
late entry: pt left without [facility] staff. She did not inform staff that she left.
--- NOTE | 2019-12-24 00:02 | HMH.DCSUM ---
General - General Admission date:: 12/18/19 Discharge date: 12/23/19 HPI HPI: This 33-year-old white female was admitted through the emergency room with pancreatitis. Amylase and lipase were elevated. She had recently been binge drinking wine. The following was the ER narrative: Complains of midepigastric pain. States that she has had a soreness there for couple of days but it became severe tonight 1 hour after eating pizza. It radiates to her back. Nausea, but no vomiting. She has had prior cholecystectomy and prior pancreatitis. She says the pancreatitis was not gallbladder related; she had already had her gallbladder out. She says she does drink alcohol. She has had a bottle of wine and a couple of shots a day for the past 3 days. Denies fever, diarrhea. She drove herself to the hospital. Her pain feels similar to previous gallbladder and pancreatitis pain. The patient did admit to binge drinking. There was a family history of alcohol abuse. She had a cholecystectomy for cholelithiasis and cholecystitis. She was not aware of her lipid status. Hospital Course Hospital Course: On admission patient was given Zofran for nausea and morphine for her pain. She received IVF and was also started on hyoscyamine and some of her home meds. She did continue to have abdominal pain throughout her stay requiring regular administration of morphine. She also used a heating pad to the abdomen which seemed to help. Zofran and Phenergan did help her nausea. She was also started on Pepcid to help with some of her symptoms. Gastroenterology was consulted and she had an EGD on 12/18/2019 with impression of nonerosive GERD with moderate esophageal dysmotility and cricopharyngeal spasm. She also had moderate bile reflux with moderate linear reactive gastropathy. Recommendation was for dietary measures, fiber bowel regime, and patient was started on buspirone. Patient was also noted to be constipated. She was started on daily MiraLAX and given suppositories with results. Repeat CT scan of the abdomen was completed due to ongoing abdominal pain. Results revealed fluid in the right lower quadrant as well as constipation. Dr. Paige, [facility], was also consulted who suspected a ruptured ovarian cyst given the sudden onset of her right lower quadrant pain. Vaginal swab for trichomonas was done and was negative. She on 12/23/2019 patient did seem to be a little more comfortable. She was eating some with no vomiting. Potassium had normalized. Amylase and lipase were also normal. On this date she was discharged home in stable and satisfactory condition. She Was Instructed to contact her primary care provider for follow-up. see Data for test results. Objective Vital signs: Temp Pulse Resp BP Pulse Ox 97.6 F 54 L 16 123/71 96 12/23/19 08:00 12/23/19 08:00 12/23/19 08:00 12/23/19 08:00 12/23/19 08:00 Narrative: Exam Vital signs and Labs for Last 24 Hours: Temp Pulse Resp BP Pulse Ox 97.6 F 56 L 17 119/44 L 94 L 12/23/19 04:00 12/23/19 04:00 12/23/19 04:00 12/23/19 04:00 12/23/19 04:00 Laboratory Results - last 24 hr 12/22/19 10:32: Sodium 140, Potassium 4.0 D, Chloride 102, Carbon Dioxide 33 H, Anion Gap 9.0, BUN 4 L, Creatinine 0.90 D, Estimated Creat Clear 124, Estimated GFR 72, Est GFR ( Amer) 87 D, Glucose 86, Calcium 9.1 I & O for Last 24 hours: Intake & Output 12/20/19 12/21/19 12/22/19 12/23/19 11:59 11:59 11:59 11:59 Intake Total 3629 / 3629 2039 240 / 240 380 / 380 Balance 3629 / 3629 2039 / 2039 240 / 240 380 / 380 Weight 199 lb 4.766 oz 200 lb 9.93 oz 194 lb 3.636 oz 195 lb 15.855 oz Microbiology Reports for the Last 24 Hours: Microbiology 12/21/19 22:00 Vaginal Gram Stain - Final 12/21/19 22:00 Vaginal Genital Culture - Preliminary 12/22/19 17:00 Vaginal Wet Prep - Final - Constitutional no acute distress - *Routine HEENT
[2020-01-14 20:18] LABS: Antinuclear Antibodies (ANA) NEGATIVE
== END 2019-12-23 12:06 | disposition home or self-care (01) ==
LOC: ER 12-18 01:13 → 2ND 12-18 02:44
PROVIDERS: Internal Medicine Gastroenterology; Admitting Provider Family Medicine; Emergency Provider Emergency Medicine; Visit Provider Family Medicine
PROC: 0DJ08ZZ Inspection of Upper Intestinal Tract, Via Natural or Artificial Opening Endoscopic (ICD-10-PCS; CPT 43235; principal; 2019-12-19 14:00)
DX: K85.90 Acute pancreatitis without necrosis or infection, unspecified (principal); F10.10 Alcohol abuse, uncomplicated; F41.8 Other specified anxiety disorders; L92.1 Necrobiosis lipoidica, not elsewhere classified; H53.8 Other visual disturbances; N60.01 Solitary cyst of right breast; N83.201 Unspecified ovarian cyst, right side; K21.9 Gastro-esophageal reflux disease without esophagitis; K22.4 Dyskinesia of esophagus
CPT/HCPCS: 43239; 43249; 36415; 74177; 80048; 80053; 81001; 82150; 82607; 83690; 84443; 84703; 85025; 85651; 86038; 86328; 86431; 87070; 87077; 87186; 87205; 87210; 88305; 99284; C1726; G0378; J2310; J2405; Q9967

== ENCOUNTER 2020-06-23 00:28 | Observation (INO) | payer BC, SELFPAY ==
[2020-06-23] VITALS (13 sets, daily range): BP systolic 91–122; BP diastolic 48–84; PULSE 52–70; RESP 16–52; TEMP 36.4–36.9; O2SAT 92–100; BMI 33.3; BMI 34.2
--- NOTE | 2020-06-23 00:38 | CT_ITS ---
PROCEDURE INFORMATION: Exam: CT Abdomen And Pelvis With Contrast Exam date and time: 06/23/2020 12:38 AM Age: 34 years old Clinical indication: Nausea and other: Diarrhea; Abdominal pain; Periumbilical; Patient HX: Abd pain for 5 hrs with nauseas and diarrhea; Additional info: Umbilicus pain TECHNIQUE: Imaging protocol: Computed tomography of the abdomen and pelvis with contrast. Radiation optimization: All CT scans at this facility use at least one of these dose optimization techniques: automated exposure control; mA and/or kV adjustment per patient size (includes targeted exams where dose is matched to clinical indication); or iterative reconstruction. Contrast material: ISOVUE; Contrast volume: 75 ml; Contrast route: IV; COMPARISON: CT ABDOMEN PELVIS W CON 12/21/2019 12:50 PM FINDINGS: Lungs: Dependent bilateral lung base opacities favor atelectasis. Liver: Normal. No mass. Gallbladder and bile ducts: There are surgical clips within the gallbladder fossa. Pancreas: Normal. No ductal dilation. Spleen: Normal. No splenomegaly. Adrenal glands: Normal. No mass. Kidneys and ureters: Normal. No hydronephrosis. Stomach and bowel: Unremarkable. No obstruction. No mucosal thickening. Appendix: No evidence of appendicitis. Intraperitoneal space: Unremarkable. No free air. No significant fluid collection. Vasculature: Consider further evaluation with mammography diagnostic evaluation on a nonurgent basis if not artery performed. Lymph nodes: Unremarkable. No enlarged lymph nodes. Urinary bladder: Unremarkable as visualized. Reproductive: Unremarkable as visualized. Bones/joints: Unremarkable. No acute fracture. Soft tissues: Right breast 2.2 cm ovoid soft tissue mass stable from priors. IMPRESSION: Right breast 2.2 cm ovoid soft tissue mass stable from priors. Consider further evaluation with mammography diagnostic evaluation on a nonurgent basis if not artery performed. No CT findings explain patient's symptoms
[2020-06-23 00:43] LABS: Microscopic, Urine URINE MICROSCOPIC (MICROSCOPIC)
--- NOTE | 2020-06-23 00:46 | HMH.EDNVD ---
ED Disposition Clinical Impression: Obesity (BMI 30-39.9), Fibromyalgia, Anxious depression, Tobacco use Acute pancreatitis Qualifiers: Pancreatitis type: unspecified pancreatitis type Acute pancreatitis complication: no infection or necrosis Qualified Code(s): K85.90 - Acute pancreatitis without necrosis or infection, unspecified Disposition: Admitted as Observation Condition on Discharge: Good - Critical Care Critical Care Time: No Attestation: On 06/23/20, the high probability of a clinically significant, sudden or life threatening deterioration of the following system(s) required my full and direct attention, intervention and personal management. The time I documented below is in addition to time spent performing reported procedures but includes the following listed in this critical care notation. Medical Decision Making - Medical Records Medical records reviewed: Yes: I reviewed the patient's medical records. - [facility] Inquiry Pt receiving controlled substance: No Vital Signs: 06/23/20 00:29 06/23/20 01:00 06/23/20 01:30 Temperature 98.2 F Temperature Source Oral Pulse Rate Pulse Rate [Right] 70 Respiratory Rate 16 Blood Pressure 122/83 91/49 L Blood Pressure [Right Arm] 112/57 L Blood Pressure Mean 93 68 Blood Pressure Mean [Right Arm] 75 Blood Pressure Source Blood Pressure Source [Right Arm] Automatic Cuff Blood Pressure Position [Right Arm] Sitting 02 Sat by Pulse Oximetry 98 Oxygen Delivery Method Room Air 06/23/20 02:00 06/23/20 02:40 06/23/20 03:00 Temperature Temperature Source Pulse Rate 57 L 59 L 60 Pulse Rate [Right] Respiratory Rate Blood Pressure 114/68 112/66 107/84 L Blood Pressure [Right Arm] Blood Pressure Mean Blood Pressure Mean [Right Arm] Blood Pressure Source Automatic Cuff Automatic Cuff Blood Pressure Source [Right Arm] Blood Pressure Position [Right Arm] 02 Sat by Pulse Oximetry Oxygen Delivery Method - Lab Data Lab results reviewed: Yes: I reviewed the patient's lab results. Lab Results 06/23/20 00:35: Urine Color Yellow, Urine Appearance Clear, Urine pH 5.5, Ur Specific [place] 1.025, Urine Protein Negative, Urine Glucose (UA) Negative, Urine Ketones Negative, Urine Blood 2+, Urine Nitrate Negative, Urine Bilirubin Negative, Urine Urobilinogen 0.2, Ur Leukocyte Esterase Negative, Urine RBC 10-20, Urine WBC Occasional, Ur Squamous Epith Cells 20-50, Urine Bacteria Trace 06/23/20 00:35: WBC 9.6, RBC 4.71, Hgb 14.0, Hct 42.4, MCV 90.0, MCH 29.8, MCHC 33.1, RDW 13.3, Plt Count 257, MPV 7.8, Neut % (Auto) 55.7, Lymph % (Auto) 38.4, [place] % (Auto) 4.4, Eos % (Auto) 0.1, Baso % (Auto) 1.5, Neut # (Auto) 5.3, Lymph # (Auto) 3.7, [place] # (Auto) 0.4, Eos # (Auto) 0.0, Baso # (Auto) 0.1, ESR 13 06/23/20 00:35: Urine HCG, Qual Negative 06/23/20 00:35: Sodium 136, Potassium 4.4, Chloride 103, Carbon Dioxide 21 L, Anion Gap 16.4 H, BUN 18 H, Creatinine 0.70, Estimated Creat Clear 164, Estimated GFR 96, Est GFR ( Amer) 117, Glucose 103 H, Calcium 9.6, Total Bilirubin 0.4, AST 30, ALT 25, Alkaline Phosphatase 84, C-Reactive Protein 4.7 H, Total Protein 7.9 D, Albumin 4.8, Globulin 3.1, Albumin/Globulin Ratio 1.5, Amylase 278 H, Lipase 2412 H, Procalcitonin 0.040 06/23/20 00:35: Lactate 0.9 Result diagrams: 06/23/20 00:35 06/23/20 00:35 Orders (Tests/Meds): ED MEDICATIONS Generic Name Dose Route Start Last Admin Trade Name Eugeneq PRN Reason Stop Dose Admin Sodium Chloride 1,000 mls @ 999 mls/hr 06/23/20 00:45 06/23/20 00:42 Sod Chlor 0.9% 1000ml Bag IV 06/23/20 01:45 999 mls/hr .Q1H1M INO Administration Sodium Chloride 1,000 mls @ 999 mls/hr 06/23/20 02:45 06/23/20 02:45 Sod Chlor 0.9% 1000ml Bag IV 06/23/20 03:45 999 mls/hr .Q1H1M INO Administration Sodium Chloride 8 ml 06/23/20 00:38 Sodium Chloride 0.9% 10ml Vial IV 07/23/20 00:37 NEEDED PRN dilute pepcid Disc
[2020-06-23 00:48] LABS: Appearance,Urine CLEAR (Clear); Bilirubin,Urine Negative (Negative); Blood, Urine 2+ (Negative); Color,Urine YELLOW (Yellow); Glucose,Urine (UA) Negative (Negative); Ketones,Urine Negative (Negative); Leukocyte Esterase,Urine Negative (Negative); Nitrate,Urine Negative (Negative); PH,Urine 5.5 (5.0-8.5); Protein,Urine Negative (Negative); Specific Gravity, Urine 1.025 (1.005-1.030); Urobilinogen,Urine 0.2 EU/dl (0.2)
[2020-06-23 00:50] LABS: Basophils # 0.1 K/mm3 (0-0.2); Basophils % 1.5 % (0.1-2.0); Eosinophils % 0.1 % (0.1-12.0); Hematocrit 42.4 % (37.0-47.0); Lymphocytes # 3.7 K/mm3 (0.7-4.5); Lymphocytes % 38.4 % (10-50); Mean Corpuscular HGB Conc 33.1 g/dL (31.8-35.4); Mean Corpuscular Hemoglobin 29.8 pg (27.0-31.2); Mean Platelet Volume 7.8 fl (7.4-10.4); Monocytes # 0.4 K/mm3 (0.1-1.0); Monocytes % 4.4 % (1.7-9.3); Neutrophils # 5.3 K/mm3 (1.8-7.8); Neutrophils % 55.7 % (37.0-80.0); Platelet Count 257 K/mm3 (142-424); Red Blood Count 4.71 M/mm3 (4.20-5.40); Red Cell Distribution Width 13.3 % (11.5-17.5); Urine Pregnancy, HCG Qual. Negative (Negative); White Blood Count 9.6 K/mm3 (4.8-10.8)
[2020-06-23 00:51] LABS: Chloride 103 mmol/L (98-107); Potassium 4.4 mmoL/L (3.5-5.1); Sodium 136 mmol/L (136-145)
[2020-06-23 00:54] LABS: Alanine Aminotransferase 25 U/L (12-78); Alkaline Phosphatase 84 U/L (38-126); Amylase 278 U/L (30-110); Anion Gap 16.4 mEq/L (5-15); Aspartate Amino Transferase 30 U/L (14-36); Bilirubin,Total 0.4 mg/dl (0.2-1.3); Blood Urea Nitrogen 18 mg/dl (7-17); Calcium 9.6 mg/dl (8.4-10.2); Carbon Dioxide 21 mmol/L (22.0-30.0); Creatinine Clearance Estimated 164 mL/min (50-200); Estimated Glomerular Filt Rate 96 ml/min (>60); GFR (African American) 117 ML/MIN (>60); Glucose 103 mg/dl (74-100); Lactic Acid 0.9 mmol/L (0.7-2.1)
[2020-06-23 00:55] LABS: Albumin Level 4.8 g/dl (3.5-5.0); Albumin/Globulin Ratio 1.5 (1.1-1.8); Globulin 3.1 g/dL (1.3-3.2); Total Protein,Serum 7.9 g/dl (6.3-8.2)
[2020-06-23 00:59] LABS: WBC,Urine Occasional #/hpf (0-3)
[2020-06-23 01:00] LABS: Bacteria,Urine Trace /lpf; Squamous Epithelial Cell,Urine 20-50 #/hpf (0-5)
[2020-06-23 01:01] LABS: C-Reactive Protein 4.7 mg/L (0-4)
[2020-06-23 01:33] LABS: Lipase 2412 U/L (23-300)
--- NOTE | 2020-06-23 01:33 | PC.NURSE ---
Critical Lipase called from lab and reported to Dr Mckinley
[2020-06-23 02:08] LABS: Erythrocyte Sedimentation Rate 13 mm/hr (0-20)
[2020-06-23 03:06] LABS: Adenovirus,PCR Not Detected (NotDetected); Bordetella Pertussis Not Detected (NotDetected); Chlamydophila Pneumoniae, PCR Not Detected (NotDetected); Coronavirus 19, PCR Not Detected (NotDetected); Coronavirus 229E Not Detected (NotDetected); Coronavirus NL63 Not Detected (NotDetected); Coronavirus OC43 Not Detected (NotDetected); Coronovirus HKU1,PCR Not Detected (NotDetected); Human Metapneumovirus Not Detected (NotDetected); Influenza A, PCR Not Detected (NotDetected); Influenza AH1, 2009 Not Detected (NotDetected); Influenza AH1, PCR Not Detected (NotDetected); Influenza AH3,PCR Not Detected (NotDetected); Influenza B, PCR Not Detected (NotDetected); Mycoplasma Pneumoniae, PCR Not Detected (NotDetected); Parainfluenza 1, PCR Not Detected (NotDetected); Parainfluenza 2, PCR Not Detected (NotDetected); Parainfluenza 3, PCR Not Detected (NotDetected); Parainfluenza 4, PCR Not Detected (NotDetected); Respiratory Syncytial Virus Not Detected (NotDetected); Rhinovirus/Enterovirus Not Detected (NotDetected)
--- NOTE | 2020-06-23 04:09 | PC.NURSE ---
patient up to floor via wheelchair.
--- NOTE | 2020-06-23 05:03 | PC.NURSE ---
A&OX4. PT TOLERATING RA. PT TOLERATING NPO DIET. PT HAS C/O ABD PAIN THAT RADIATES TO HER BACK. GIVEN PRN MORPHINE. ON REASSESSMENT PT RESTING IN BED. NO OTHER C/O THUS FAR, VSS WILL CONTINUE TO MONITOR.
--- NOTE | 2020-06-23 08:48 | HMH.HP ---
*Admission Date: 06/23/20 *Chief complaint: abd pain *History of present illness: this patient presented to the ed with abd pain which had started today mostly in lt upper abd -pt had hx of pancreatitis in the past - she had some etoh yesterday - pt with hx of depression and tob use and fibromyalgia - pt has n/v with no fever -pt was admitted with ongoing pain and for ivf [facility] History I have reviewed the patient's past medical history: Yes Medical History: Reports:: Anxiety, Hyperlipidemia Denies:: Cancer, Diabetes Mellitus Type 1, Diabetes Mellitus Type 2, MRSA, Seizures, Urinary Tract Infection *Have you ever received a pneumonia vaccine?: No *Have you received a flu vaccine this season?: Yes Other Medical History: Reports: Fibromyalgia. Denies: Thyroid Disease Other Surgeries: Yes: Cholecystectomy, Dilation and Curettage. No: Amputation: No Fractures: No - *Social History Smoking Status: Current every day smoker Tobacco Type: cigarettes # Packs/Day (cigarettes): 1 Alcohol Intake: never Alcohol Intake Frequency:: a few times a week Substance Use Type: marijuana *Occupational Status:: employed Housing: house Household Members: children *Travel in the last 8 weeks: None - Psychiatric History Pschychiatric History:: Reports:: Anxiety Family Hx:: Anemia, Asthma, Coronary Artery Disease, Alcoholism, Other Review of Systems - Review of Systems Review of systems:: pertinent systems reviewed and negative unless documented below - Constitutional Denies fever(s) - Eyes Denies change in vision - ENT Denies dizziness - *Cardiovascular Denies chest pain - *Respiratory Denies cough - *Gastrointestinal Reports abdominal pain, Reports nausea, Reports vomiting, Denies black, tarry stools - *Genitourinary Denies blood in urine - *Musculoskeletal Denies joint pain - Integumentary/Breasts Denies rash - *Neurologic Denies abnormal walking, Denies headache(s), Denies seizure-like activity - Psychiatric Denies anxiety Meds Home Medications Medication Instructions Recorded Confirmed Type methocarbamol 500 mg tablet 500 mg PO DAILY tab 05/09/20 06/23/20 History pregabalin 200 mg capsule 200 mg PO BID cap 05/09/20 06/23/20 History venlafaxine 150 mg 150 mg PO DAILY cap 05/09/20 06/23/20 History capsule,extended release 24 hr Lurasidone HCl [Latuda] 40 mg PO DAILY 06/23/20 06/23/20 History cloNIDine HCL [cloNIDine 0.1mg 0.1 mg PO BID 06/23/20 06/23/20 History Tablet] Allergies Allergy/AdvReac Type Severity Reaction Status Date / Time tramadol Allergy Verified 05/09/20 14:20 Exam Vital signs and Labs for Last 24 Hours: Temp Pulse Resp BP Pulse Ox 97.9 F 55 L 16 108/72 L 92 L 06/23/20 04:06/23/20 04:06/23/20 04:06/23/20 04:06/23/20 04:09 Laboratory Results - last 24 hr 06/23/20 00:35: Urine Color Yellow, Urine Appearance Clear, Urine pH 5.5, Ur Specific [place] 1.025, Urine Protein Negative, Urine Glucose (UA) Negative, Urine Ketones Negative, Urine Blood 2+, Urine Nitrate Negative, Urine Bilirubin Negative, Urine Urobilinogen 0.2, Ur Leukocyte Esterase Negative, Urine RBC 10-20, Urine WBC Occasional, Ur Squamous Epith Cells 20-50, Urine Bacteria Trace 06/23/20 00:35: WBC 9.6, RBC 4.71, Hgb 14.0, Hct 42.4, MCV 90.0, MCH 29.8, MCHC 33.1, RDW 13.3, Plt Count 257, MPV 7.8, Neut % (Auto) 55.7, Lymph % (Auto) 38.4, [place] % (Auto) 4.4, Eos % (Auto) 0.1, Baso % (Auto) 1.5, Neut # (Auto) 5.3, Lymph # (Auto) 3.7, [place] # (Auto) 0.4, Eos # (Auto) 0.0, Baso # (Auto) 0.1, ESR 13 06/23/20 00:35: Urine HCG, Qual Negative 06/23/20 00:35: Sodium 136, Potassium 4.4, Chloride 103, Carbon Dioxide 21 L, Anion Gap 16.4 H, BUN 18 H, Creatinine 0.70, Estimated Creat Clear 164, Estimated GFR 96, Est GFR ( Amer) 117, Glucose 103 H, Calcium 9.6, Total Bilirubin 0.4, AST 30, ALT 25, Alkaline Phosphatase 84, C-Reactive Protein 4.7 H, Total Protein 7.9 D, Albumin 4.8, Globuli
[2020-06-23 09:00] LABS: Basophils # 0.1 K/mm3 (0-0.2); Basophils % 1.2 % (0.1-2.0); Eosinophils # 0.1 K/mm3 (0.0-0.4); Eosinophils % 1.1 % (0.1-12.0); Hematocrit 38.1 % (37.0-47.0); Hemoglobin 12.8 g/dL (12.2-16.2); Lymphocytes # 3.3 K/mm3 (0.7-4.5); Lymphocytes % 49.4 % (10-50); Mean Corpuscular HGB Conc 33.6 g/dL (31.8-35.4); Mean Corpuscular Hemoglobin 30.8 pg (27.0-31.2); Mean Corpuscular Volume 91.8 fl (81-99); Mean Platelet Volume 9.4 fl (7.4-10.4); Monocytes # 0.4 K/mm3 (0.1-1.0); Monocytes % 5.2 % (1.7-9.3); Neutrophils # 2.9 K/mm3 (1.8-7.8); Neutrophils % 43.1 % (37.0-80.0); Platelet Count 148 K/mm3 (142-424); Red Blood Count 4.15 M/mm3 (4.20-5.40); Red Cell Distribution Width 13.6 % (11.5-17.5); White Blood Count 6.6 K/mm3 (4.8-10.8)
[2020-06-23 09:35] LABS: Anion Gap 10.4 mEq/L (5-15); Blood Urea Nitrogen 13 mg/dl (7-17); Carbon Dioxide 17 mmol/L (22.0-30.0); Chloride 119 mmol/L (98-107); Chol/HDL Ratio 4.9 (1-3.5); Cholesterol 168 mg/dl (140-200); Creatinine Clearance Estimated 196 mL/min (50-200); Estimated Glomerular Filt Rate 115 ml/min (>60); GFR (African American) 139 ML/MIN (>60); Glucose 87 mg/dl (74-100); HDL Cholesterol 34 mg/dl (40-60); Lipase 343 U/L (23-300); Magnesium 2.1 mg/dl (1.6-2.3); Potassium 5.4 mmoL/L (3.5-5.1); Sodium 141 mmol/L (136-145); Triglycerides 137 mg/dl (30-150); VLDL Cholesterol 27 mg/dL (0-40)
[2020-06-23 09:45] LABS: Direct LDL Cholesterol 112.56 mg/dL (100-129)
--- NOTE | 2020-06-23 11:14 | P.CONPHA_ITS ---
[facility] VTE Monitoring - Patient Demographics Admission date: 06/23/20 Report Date: 06/23/20 Time: 11:14 Allergies/Adverse Reactions: Patient Allergies tramadol Allergy (Verified 05/09/20 14:20) Height: 1.65 m Weight: 93.1 kg Patient Problems: Current Active Problems Acute pancreatitis (Acute) Anxious depression (Acute) Fibromyalgia (Acute) Obesity (BMI 30-39.9) (Acute) Tobacco use (Acute) Breast mass in female (Acute) - VTE Risk Labs: VTE Related Lab Results Hgb 12.8 g/dL (12.2-16.2) 06/23/20 08:45 Hct 38.1 % (37.0-47.0) 06/23/20 08:45 Plt Count 148 K/mm3 (142-424) D 06/23/20 08:45 BUN 13 mg/dl (7-17) D 06/23/20 08:45 Creatinine 0.60 mg/dl (0.52-1.04) 06/23/20 08:45 Estimated Creat Clear 196 mL/min (50-200) 06/23/20 08:45 - Prophylaxis VTE Prophylaxis Ordered?: Yes Types of VTE Prophylaxis: TEDS Knee High Location of Applied Device: Bilateral Lower Extremeties
--- NOTE | 2020-06-23 11:20 | HMH.PHAINT ---
MEDICATION RECONCILIATION COMPLETED ON PATIENT USING EXTERNAL FILL HISTORY FROM PHARMACY. -BRADY ODONNELL, ERICSKOND
--- NOTE | 2020-06-23 15:39 | PC.NURSE ---
Pt has been pleasant and cooperative this shift. A&O X4. Pt has had multiple complaints of pain and nausea. Pt has been medicated with Morphine, Zofran, and Phenergan per MAR with favorable results. Pt is on room air with sats. >90%. Lungs CTA. No edema noted. Skin is C/D/I. Pt ambulates independently to/from the bathroom and throughout the room. Pt uses the toilet to void clear, yellow urine without issue. No BM today. 20 G peripheral IV in the RT AC is patent and infusing NS @ 100 ML/HR. VSS. Call light within reach. Will continue to monitor.
--- NOTE | 2020-06-24 00:18 | PC.NURSE ---
Pt asked to see this RN, she reported feeling nausea, lightheaded, dizzy, and diaphoretic. Pt mom stated she thought she was having extreme anxiety. Pt has asked several times if she could get Dilaudid for her pain. Phenergan was given per apr. Will reassess in 30 mins.
--- NOTE | 2020-06-24 03:17 | PC.NURSE ---
Pt A&O x4. Pt has c/o constant 10/10 pain t/o shift unrelieved by morphine or norco. Pt has called out for pain meds q1-2h t/o shift. Pt has repeatedly asked if she could be given dilaudid instead of morphine. Lungs CTA, on room air. Bowel soudns x4, abd soft and nontender. Pt able to ambulate independently to BR, tolerates well. Pt has asked for ice cream and several cups of coffee this shift. IV patent, NS @ 100. VSS, call light in reach, no concerns at this time.
[2020-06-24 04:00] VITALS: BP 108/68; PULSE 69; RESP 18; TEMP 36.5; O2SAT 96
[2020-06-24 06:44] VITALS: BMI 34.9
[2020-06-24 07:53] LABS: Basophils # 0.1 K/mm3 (0-0.2); Basophils % 1.3 % (0.1-2.0); Eosinophils % 0.1 % (0.1-12.0); Hematocrit 36.9 % (37.0-47.0); Hemoglobin 12.1 g/dL (12.2-16.2); Lymphocytes # 3.2 K/mm3 (0.7-4.5); Lymphocytes % 53.1 % (10-50); Mean Corpuscular HGB Conc 32.7 g/dL (31.8-35.4); Mean Corpuscular Hemoglobin 30.4 pg (27.0-31.2); Mean Corpuscular Volume 92.9 fl (81-99); Mean Platelet Volume 7.7 fl (7.4-10.4); Monocytes # 0.2 K/mm3 (0.1-1.0); Monocytes % 3.8 % (1.7-9.3); Neutrophils # 2.5 K/mm3 (1.8-7.8); Neutrophils % 41.8 % (37.0-80.0); Platelet Count 195 K/mm3 (142-424); Red Blood Count 3.97 M/mm3 (4.20-5.40); Red Cell Distribution Width 13.4 % (11.5-17.5)
[2020-06-24 07:54] LABS: MANUAL DIFFERENTIAL MANUAL DIFFERENTIAL (MANUAL DIFF)
[2020-06-24 08:00] VITALS: BP 127/69; PULSE 63; RESP 18; TEMP 36.8; O2SAT 99
[2020-06-24 08:03] LABS: Anion Gap 5.2 mEq/L (5-15); Blood Urea Nitrogen 5 mg/dl (7-17); Calcium 7.8 mg/dl (8.4-10.2); Carbon Dioxide 28 mmol/L (22.0-30.0); Chloride 110 mmol/L (98-107); Creatinine Clearance Estimated 200 mL/min (50-200); Estimated Glomerular Filt Rate 115 ml/min (>60); GFR (African American) 139 ML/MIN (>60); Glucose 94 mg/dl (74-100); Potassium 4.2 mmoL/L (3.5-5.1); Sodium 139 mmol/L (136-145)
[2020-06-24 08:08] LABS: Lipase 859 U/L (23-300)
[2020-06-24 08:10] LABS: Lymphocytes % 55 % (10-50); Monocytes % 5 % (2-9); Neutrophils % 40 % (42-76); Platelet Estimate Normal; RBC Morphology Normal; Total Cells Counted 100
--- NOTE | 2020-06-24 10:11 | HMH.ACPN2 ---
Internal Medicine - PN: Subj *Date: 06/24/20 *Time: 10:12 Interval history: Patient was quite uncomfortable during the night last night. His mid epigastric and left lower quadrant pain. Marginally relieved by morphine. Sequential lipase is reviewed. She had a clinical apogee of 2412, subsequently dropped into the 300s, then michele to 859 this morning. Her white count is normal her hemoglobin is 12.1. We have reordered her home psychiatric medications. We will escalate her pain control and continue IV hydration. Exam Vital signs and Labs for Last 24 Hours: Temp Pulse Resp BP Pulse Ox 98.2 F 63 18 127/69 99 06/24/20 08:00 06/24/20 08:00 06/24/20 08:00 06/24/20 08:00 06/24/20 08:00 Laboratory Results - last 24 hr 06/23/20 08:45: Calcium 8.0 L D 06/24/20 07:37: WBC 6.0, RBC 3.97 L, Hgb 12.1 L, Hct 36.9 L, MCV 92.9, MCH 30.4, MCHC 32.7, RDW 13.4, Plt Count 195 D, MPV 7.7, Neut % (Auto) 41.8, Lymph % (Auto) 53.1 H, [place] % (Auto) 3.8, Eos % (Auto) 0.1, Baso % (Auto) 1.3, Neut # (Auto) 2.5, Lymph # (Auto) 3.2, [place] # (Auto) 0.2, Eos # (Auto) 0.0, Baso # (Auto) 0.1, Total Counted 100, Neutrophils % (Manual) 40 L, Lymphocytes % (Manual) 55 H, Monocytes % (Manual) 5, Platelet Estimate Normal, RBC Morphology Normal 06/24/20 07:37: Sodium 139, Potassium 4.2 D, Chloride 110 H, Carbon Dioxide 28 D, Anion Gap 5.2, BUN 5 L D, Creatinine 0.60, Estimated Creat Clear 200, Estimated GFR 115, Est GFR ( Amer) 139, Glucose 94, Calcium 7.8 L, Lipase 859 H I & O for Last 24 hours: Intake & Output 06/21/20 06/22/20 06/23/20 06/24/20 23:59 23:59 23:59 23:59 Intake Total 3238 / 3238 480 / 480 Balance 3238 / 3238 480 / 480 Weight 205 lb 4 oz 209 lb 6 oz - Constitutional no acute distress, mild distress - *Routine HEENT Exam Head: Present: normocephalic Eye: Present: EOMI, PERRL ENT: Present: mucous membranes moist - *Routine Neck Exam Present: supple. Absent: lymphadenopathy - *Routine Respiratory Exam Present: CTA bilaterally - *Routine Cardiovascular Exam Present: RRR - *Routine Abdominal Exam Present: soft, tenderness. Absent: distended, rebound, guarding, firm, rigid, mass - *Routine Extremities Exam Absent: cyanosis, clubbing, edema - *Routine Skin Exam Present: warm. Absent: rash - *Routine Neurological Exam Present: alert, oriented X3 Assessment and Plan (1) Breast mass in female Status: Acute Category: Medical Code(s): N63.0 - Unspecified lump in unspecified breast (2) Acute pancreatitis Status: Acute Qualifiers: Pancreatitis type: unspecified pancreatitis type Acute pancreatitis complication: no infection or necrosis Qualified Code(s): K85.90 - Acute pancreatitis without necrosis or infection, unspecified Category: Medical Code(s): K85.90 - Acute pancreatitis without necrosis or infection, unspecified (3) Anxious depression Status: Acute Category: Medical Code(s): F41.8 - Other specified anxiety disorders (4) Fibromyalgia Status: Acute Category: Medical Code(s): M79.7 - Fibromyalgia (5) Obesity (BMI 30-39.9) Status: Acute Category: Medical Code(s): E66.9 - Obesity, unspecified (6) Tobacco use Status: Acute Category: Social Hx Code(s): Z72.0 - Tobacco use - Assessment and plan all Dx Assessment and Plan for all problems:: We will change morphine to Dilaudid for enhanced pain control. Will measure sequential labs including lipase. Strongly advised to abstain from alcohol and all forms. Imaging revealed a lesion in the right breast, she is advised to have this followed up upon release. I did discuss the findings in detail and she understands. See orders
[2020-06-24 15:59] VITALS: BP 122/89; PULSE 94; RESP 18; TEMP 36.5; O2SAT 95
--- NOTE | 2020-06-24 16:39 | PC.NURSE ---
Pt has been pleasant and cooperative this shift. A&O X4. Pt has had multiple complaints of pain and nausea. Pt has been medicated with Dilaudid, Zofran, [place], and Phenergan per MAR with favorable results. Pt is on room air with sats. >90%. Lungs CTA. No edema noted. Skin is C/D/I. Pt ambulates independently to/from the bathroom and throughout the room. Pt uses the toilet to void clear, yellow urine without issue. No BM today. 20 G peripheral IV in the LT wrist is patent and infusing NS @ 150 ML/HR. VSS. Call light within reach. Will continue to monitor.
[2020-06-24 20:00] VITALS: BP 140/75; PULSE 77; RESP 16; TEMP 36.6; O2SAT 96
--- NOTE | 2020-06-25 03:41 | PC.NURSE ---
shift summary pt is alert and oriented X4. pt very freguently uses the call light asking for pain meds, even immediately after receiving pain meds. pt complained of nausea once during the shift which was relieved with antiemetic. pt denies vomiting or diarrhea.
[2020-06-25 04:00] VITALS: BP 127/81; PULSE 79; RESP 16; TEMP 36.4; O2SAT 94
[2020-06-25 05:39] VITALS: BMI 35.6
[2020-06-25 07:09] LABS: Basophils # 0.1 K/mm3 (0-0.2); Basophils % 0.8 % (0.1-2.0); Eosinophils % 0.4 % (0.1-12.0); Hemoglobin 11.5 g/dL (12.2-16.2); Lymphocytes # 2.1 K/mm3 (0.7-4.5); Lymphocytes % 23.6 % (10-50); Mean Corpuscular HGB Conc 32.7 g/dL (31.8-35.4); Mean Corpuscular Hemoglobin 30.5 pg (27.0-31.2); Mean Corpuscular Volume 93.2 fl (81-99); Monocytes # 0.3 K/mm3 (0.1-1.0); Monocytes % 3.1 % (1.7-9.3); Neutrophils # 6.4 K/mm3 (1.8-7.8); Platelet Count 174 K/mm3 (142-424); Red Blood Count 3.75 M/mm3 (4.20-5.40); Red Cell Distribution Width 13.3 % (11.5-17.5); White Blood Count 8.8 K/mm3 (4.8-10.8)
[2020-06-25 07:17] LABS: Alanine Aminotransferase 49 U/L (12-78); Albumin Level 3.5 g/dl (3.5-5.0); Albumin/Globulin Ratio 1.5 (1.1-1.8); Alkaline Phosphatase 75 U/L (38-126); Anion Gap 5.2 mEq/L (5-15); Aspartate Amino Transferase 53 U/L (14-36); Bilirubin,Total 0.2 mg/dl (0.2-1.3); Blood Urea Nitrogen 2 mg/dl (7-17); Calcium 7.5 mg/dl (8.4-10.2); Carbon Dioxide 27 mmol/L (22.0-30.0); Chloride 110 mmol/L (98-107); Creatinine Clearance Estimated 245 mL/min (50-200); Estimated Glomerular Filt Rate 142 ml/min (>60); GFR (African American) 172 ML/MIN (>60); Globulin 2.4 g/dL (1.3-3.2); Glucose 99 mg/dl (74-100); Lipase 508 U/L (23-300); Potassium 4.2 mmoL/L (3.5-5.1); Sodium 138 mmol/L (136-145); Total Protein,Serum 5.9 g/dl (6.3-8.2)
[2020-06-25 07:40] VITALS: BP 130/88; PULSE 74; RESP 18; TEMP 36.8; O2SAT 99
[2020-06-25 10:54] VITALS: RESP 16
--- NOTE | 2020-06-25 11:50 | HMH.ACPN2 ---
Internal Medicine - PN: Subj *Date: 06/25/20 *Time: 08:45 Interval history: pt sitting up in bed drinking a [employer] double shot drink. Pt states pain is the same. Exam Vital signs and Labs for Last 24 Hours: Temp Pulse Resp BP Pulse Ox 98.2 F 74 16 130/88 99 06/25/20 07:40 06/25/20 07:40 06/25/20 10:54 06/25/20 07:40 06/25/20 07:40 Laboratory Results - last 24 hr 06/25/20 06:42: WBC 8.8 D, RBC 3.75 L, Hgb 11.5 L, Hct 35.0 L, MCV 93.2, MCH 30.5, MCHC 32.7, RDW 13.3, Plt Count 174, MPV 8.0, Neut % (Auto) 72.0, Lymph % (Auto) 23.6, [place] % (Auto) 3.1, Eos % (Auto) 0.4, Baso % (Auto) 0.8, Neut # (Auto) 6.4, Lymph # (Auto) 2.1, [place] # (Auto) 0.3, Eos # (Auto) 0.0, Baso # (Auto) 0.1 06/25/20 06:42: Sodium 138, Potassium 4.2, Chloride 110 H, Carbon Dioxide 27, Anion Gap 5.2, BUN 2 L D, Creatinine 0.50 L, Estimated Creat Clear 245, Estimated GFR 142, Est GFR ( Amer) 172 D, Glucose 99, Calcium 7.5 L, Total Bilirubin 0.2, AST 53 H D, ALT 49 D, Alkaline Phosphatase 75, Total Protein 5.9 L D, Albumin 3.5, Globulin 2.4, Albumin/Globulin Ratio 1.5, Lipase 508 H I & O for Last 24 hours: Intake & Output 06/22/20 06/23/20 06/24/20 06/25/20 11:59 11:59 11:59 11:59 Intake Total 1999 / 1717 2599 / 2599 Balance 1999 / 1718 2599 / 2599 Weight 205 lb 4 oz 209 lb 6 oz 214 lb 2 oz Microbiology Reports for the Last 24 Hours: Microbiology 06/23/20 00:35 Blood Blood Culture - Preliminary NO GROWTH AFTER 48 HOURS 06/23/20 00:35 Blood Blood Culture - Preliminary NO GROWTH AFTER 48 HOURS - Constitutional no acute distress - *Routine HEENT Exam Head: Present: normocephalic Eye: Present: PERRL ENT: Present: mucous membranes moist - *Routine Neck Exam Present: supple. Absent: lymphadenopathy - *Routine Respiratory Exam Present: CTA bilaterally - *Routine Cardiovascular Exam Present: RRR - *Routine Abdominal Exam Present: soft, normoactive bowel sounds, tenderness - *Routine Extremities Exam Present: normal capillary refill. Absent: cyanosis, clubbing, edema - *Routine Skin Exam Present: warm. Absent: rash - *Routine Neurological Exam Present: alert, oriented X3 - Routine Psychiatric Exam Present: normal affect Assessment and Plan (1) Breast mass in female Status: Acute Category: Medical Code(s): N63.0 - Unspecified lump in unspecified breast (2) Acute pancreatitis Status: Acute Qualifiers: Pancreatitis type: unspecified pancreatitis type Acute pancreatitis complication: no infection or necrosis Qualified Code(s): K85.90 - Acute pancreatitis without necrosis or infection, unspecified Category: Medical Code(s): K85.90 - Acute pancreatitis without necrosis or infection, unspecified (3) Anxious depression Status: Acute Category: Medical Code(s): F41.8 - Other specified anxiety disorders (4) Fibromyalgia Status: Acute Category: Medical Code(s): M79.7 - Fibromyalgia (5) Obesity (BMI 30-39.9) Status: Acute Category: Medical Code(s): E66.9 - Obesity, unspecified (6) Tobacco use Status: Acute Category: Social Hx Code(s): Z72.0 - Tobacco use - Assessment and plan all Dx Assessment and Plan for all problems:: rounded with dr booth all orders per dr booth consult gi for poss mrcp recheck labs do not drink anything not on diet
[2020-06-25 16:00] VITALS: BP 120/86; PULSE 60; RESP 18; TEMP 36.6; O2SAT 98
--- NOTE | 2020-06-25 16:41 | MR_ITS ---
PROCEDURE INFORMATION: Exam: MR Abdomen Without and With Contrast Exam date and time: 06/25/2020 4:41 PM Age: 34 years old Clinical indication: Abdominal pain; Epigastric; Prior surgery; Surgery date: 6+ months; Surgery type: Gall bladder; Patient HX: Left upper quadrant pain. Nausea and diarrhea. ; Additional info: Recurrent pancreatitis TECHNIQUE: Imaging protocol: MR of the abdomen without and with intravenous contrast. Contrast material: PROHANCE; Contrast volume: 19 ml; Contrast route: IV; COMPARISON: CT ABDOMEN PELVIS W CON 06/23/2020 1:37 AM FINDINGS: Liver: No mass. Gallbladder and bile ducts: The gallbladder is surgically absent. No choledocholithiasis is seen. Pancreas: The pancreas enhances homogeneously. There is no peripancreatic fluid or inflammation seen. Spleen: Unremarkable. No splenomegaly. Adrenal glands: Unremarkable. No mass. Kidneys and ureters: Unremarkable. No solid mass. No hydronephrosis. Stomach and bowel: Visualized stomach and intestines are unremarkable. Intraperitoneal space: No free fluid. Arteries: No abdominal aortic aneurysm. Bones/joints: Unremarkable. Soft tissues: Unremarkable. IMPRESSION: 1. No convincing evidence of acute pancreatitis. 2. Status post cholecystectomy without significant ductal dilatation. No choledocholithiasis identified.
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
--- NOTE | 2020-06-25 18:25 | PC.NURSE ---
Meds given per apr. Pt just returned to floor from MRCP. Alert and oriented. has c/o of pain in abd and radiating to lower back. CB in reach. VSS. Remains on RA. NPO currently. S1,S2. Lungs cta.
[2020-06-25 18:35] LABS: Amylase 172 U/L (30-110); Lipase 223 U/L (23-300)
[2020-06-25 20:00] VITALS: BP 135/84; PULSE 59; RESP 16; TEMP 36.9; O2SAT 98
[2020-06-26 04:00] VITALS: BP 140/89; PULSE 50; RESP 16; TEMP 36.6; O2SAT 95
--- NOTE | 2020-06-26 04:06 | PC.NURSE ---
pt has rested off and on throughout shift, no change from previous assessment pt continues to complain of pain in LLQ and LUQ of abdomen as well as around umbilicus, pt states pain radiates to her back at time, abdomen is soft and bs remain active, pain has been managed with pain medication and pt has been able to rest, see emar, pt has remained NPO status, no distress noted call light within reach will continue to monitor at this time
[2020-06-26 07:20] LABS: Basophils # 0.1 K/mm3 (0-0.2); Basophils % 0.6 % (0.1-2.0); Eosinophils % 0.3 % (0.1-12.0); Hematocrit 34.2 % (37.0-47.0); Hemoglobin 11.5 g/dL (12.2-16.2); Lymphocytes # 2.3 K/mm3 (0.7-4.5); Lymphocytes % 32.3 % (10-50); Mean Corpuscular HGB Conc 33.6 g/dL (31.8-35.4); Mean Corpuscular Hemoglobin 30.8 pg (27.0-31.2); Mean Corpuscular Volume 91.9 fl (81-99); Mean Platelet Volume 7.5 fl (7.4-10.4); Monocytes # 0.3 K/mm3 (0.1-1.0); Monocytes % 3.5 % (1.7-9.3); Neutrophils # 4.5 K/mm3 (1.8-7.8); Neutrophils % 63.2 % (37.0-80.0); Platelet Count 172 K/mm3 (142-424); Red Blood Count 3.73 M/mm3 (4.20-5.40); Red Cell Distribution Width 13.3 % (11.5-17.5); White Blood Count 7.1 K/mm3 (4.8-10.8)
[2020-06-26 07:30] LABS: Anion Gap 7.1 mEq/L (5-15); Blood Urea Nitrogen 3 mg/dl (7-17); Calcium 7.9 mg/dl (8.4-10.2); Carbon Dioxide 25 mmol/L (22.0-30.0); Chloride 110 mmol/L (98-107); Creatinine Clearance Estimated 245 mL/min (50-200); Estimated Glomerular Filt Rate 142 ml/min (>60); GFR (African American) 172 ML/MIN (>60); Glucose 89 mg/dl (74-100); Potassium 4.1 mmoL/L (3.5-5.1); Sodium 138 mmol/L (136-145)
[2020-06-26 07:41] VITALS: BP 151/84; PULSE 52; RESP 18; TEMP 36.6; O2SAT 96
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
== END 2020-06-26 12:45 | disposition home or self-care (01) ==
LOC: ER 00:35 → 2ND 03:29
PROVIDERS: Nurse Practitioner Family; Admitting Provider Emergency Medicine; Emergency Provider Emergency Medicine; Visit Provider Family Medicine
DX: K85.90 Acute pancreatitis without necrosis or infection, unspecified (principal); F41.8 Other specified anxiety disorders; M79.7 Fibromyalgia; N63.0 Unspecified lump in unspecified breast; Z79.899 Other long term (current) drug therapy
CPT/HCPCS: 36415; 74177; 74183; 76376; 80048; 80053; 80061; 81001; 81025; 82150; 83605; 83690; 83735; 84145; 85007; 85025; 85651; 86140; 87040; 87581; 87633; 87798; 96365; 96366; 96375; 96376; 99284; A9576; G0378; J2405; Q9967

== ENCOUNTER 2020-06-28 17:48 | Emergency (ER) | payer BC, SELFPAY ==
[2020-06-28 18:13] VITALS: BP 145/92; PULSE 76; RESP 20; TEMP 37.1; O2SAT 100; BMI 33.3
[2020-06-28 19:33] VITALS: BP 000/00; PULSE 0; RESP 0; TEMP -17.7; TEMP 0
== END 2020-06-28 18:52 | disposition left against medical advice (07) ==
PROVIDERS: Emergency Provider Nurse Practitioner
DX: Z53.21 Procedure and treatment not carried out due to patient leaving prior to being seen by health care provider (principal)

== ENCOUNTER 2020-07-10 22:02 | Inpatient (IN) | payer BC, SELFPAY ==
[2020-07-10 22:05] VITALS: BP 113/59; PULSE 74; RESP 16; TEMP 36.7; O2SAT 100; BMI 33.3
[2020-07-10 22:22] VITALS: BMI 33.3
[2020-07-10 22:27] LABS: Microscopic, Urine URINE MICROSCOPIC (MICROSCOPIC)
[2020-07-10 22:29] LABS: Appearance,Urine SL CLOUDY (Clear); Bilirubin,Urine Negative (Negative); Blood, Urine Negative (Negative); Color,Urine YELLOW (Yellow); Glucose,Urine (UA) Negative (Negative); Ketones,Urine Negative (Negative); Leukocyte Esterase,Urine Negative (Negative); Nitrate,Urine Negative (Negative); PH,Urine 7.5 (5.0-8.5); Protein,Urine Negative (Negative); Specific Gravity, Urine 1.015 (1.005-1.030); Urobilinogen,Urine 0.2 EU/dl (0.2)
[2020-07-10 22:30] LABS: Urine Pregnancy, HCG Qual. Negative (Negative)
[2020-07-10 22:36] LABS: Bacteria,Urine 3+ /lpf; WBC,Urine Occasional #/hpf (0-3)
--- NOTE | 2020-07-10 22:42 | CT_ITS ---
PROCEDURE INFORMATION: Exam: CT Abdomen And Pelvis With Contrast Exam date and time: 07/10/2020 10:42 PM Age: 34 years old Clinical indication: Abdominal pain; Epigastric; Prior surgery; Surgery date: 6+ months; Surgery type: Gb; Patient HX: Abdomen pain with HX of recent pancreatitis; Additional info: Abdominal pain with recent pancreatitis TECHNIQUE: Imaging protocol: Computed tomography of the abdomen and pelvis with contrast. Total images: 4 Radiation optimization: All CT scans at this facility use at least one of these dose optimization techniques: automated exposure control; mA and/or kV adjustment per patient size (includes targeted exams where dose is matched to clinical indication); or iterative reconstruction. Contrast material: ISOVUE; Contrast volume: 75 ml; Contrast route: IV; COMPARISON: CT ABDOMEN PELVIS W CON 06/23/2020 1:37 AM FINDINGS: Lungs: Visualized lung bases are clear. Heart: Heart size normal. Mediastinal space: The visualized distal esophagus is normal. Liver: Normal contour. No mass lesions. No intrahepatic biliary ductal dilatation. Gallbladder and bile ducts: Evidence of prior cholecystectomy with no significant dilatation of the common bile duct. Pancreas: Normal. No inflammatory changes or ductal dilation. Spleen: Normal. No splenomegaly. Adrenal glands: Normal. No adrenal mass. Kidneys and ureters: No acute abnormalities. No hydronephrosis or hydroureter. No urinary tract stones are identified. Stomach and bowel: The stomach is unremarkable. Question mildly excessive fluid content in the mid and distal small bowel segments with equivocal slight increase in bowel wall enhancement. This is suspicious for mild gastroenteritis. No lilibeth bowel dilatation or transition point. No evidence of bowel obstruction, perforation, or abscess. No acute colonic abnormalities. Appendix: The appendix is normal in caliber and demonstrates no evidence of appendicitis. Intraperitoneal space: No free fluid or air. Vasculature: No acute process. No abdominal aortic aneurysm. Lymph nodes: No adenopathy. Urinary bladder: Unremarkable as visualized. Reproductive: Retroflexed uterus without acute abnormality. No gross ovarian abnormalities. Small follicles in both ovaries, within physiologic range. Bones/joints: No acute osseous abnormalities. Soft tissues: The previously identified soft tissue density nodule in the lower inner quadrant of the right breast seen on 06/23/2020 is only partially visualized on today's scan but grossly unchanged. It is unchanged back to CT abdomen pelvis 12/21/2019. Directed clinical examination of the nodule and diagnostic mammographic evaluation recommended if not already performed. IMPRESSION: 1. Questionable findings of mild gastroenteritis. No evidence of bowel obstruction, perforation, or abscess. No evidence of pancreatitis. 2. The previously identified 2 cm nodule in the lower inner quadrant of the right breast is marginally visualized on today's scan, grossly unchanged. Directed clinical evaluation and diagnostic mammographic assessment recommended if not already performed.
[2020-07-10 22:53] LABS: Basophils # 0.1 K/mm3 (0-0.2); Basophils % 1.3 % (0.1-2.0); Hematocrit 38.8 % (37.0-47.0); Hemoglobin 13.2 g/dL (12.2-16.2); Lymphocytes # 3.7 K/mm3 (0.7-4.5); Lymphocytes % 36.9 % (10-50); Mean Corpuscular HGB Conc 33.9 g/dL (31.8-35.4); Mean Corpuscular Hemoglobin 30.4 pg (27.0-31.2); Mean Corpuscular Volume 89.7 fl (81-99); Mean Platelet Volume 8.2 fl (7.4-10.4); Monocytes # 0.4 K/mm3 (0.1-1.0); Monocytes % 4.2 % (1.7-9.3); Neutrophils # 5.8 K/mm3 (1.8-7.8); Neutrophils % 57.5 % (37.0-80.0); Platelet Count 289 K/mm3 (142-424); Red Blood Count 4.33 M/mm3 (4.20-5.40); Red Cell Distribution Width 13.4 % (11.5-17.5)
[2020-07-10 22:58] LABS: Alanine Aminotransferase 20 U/L (12-78); Albumin Level 4.1 g/dl (3.5-5.0); Albumin/Globulin Ratio 1.5 (1.1-1.8); Alkaline Phosphatase 76 U/L (38-126); Amylase 159 U/L (30-110); Aspartate Amino Transferase 22 U/L (14-36); Bilirubin,Total 0.3 mg/dl (0.2-1.3); Blood Urea Nitrogen 11 mg/dl (7-17); Calcium 8.9 mg/dl (8.4-10.2); Carbon Dioxide 27 mmol/L (22.0-30.0); Chloride 104 mmol/L (98-107); Creatinine Clearance Estimated 229 mL/min (50-200); Estimated Glomerular Filt Rate 142 ml/min (>60); GFR (African American) 172 ML/MIN (>60); Globulin 2.7 g/dL (1.3-3.2); Glucose 96 mg/dl (74-100); Lipase 419 U/L (23-300); Sodium 137 mmol/L (136-145); Total Protein,Serum 6.8 g/dl (6.3-8.2)
[2020-07-10 23:05] LABS: C-Reactive Protein 3.5 mg/L (0-4)
--- NOTE | 2020-07-10 23:11 | HMH.EDNVD ---
ED Disposition Clinical Impression: Obesity (BMI 30-39.9), Tobacco use, Breast mass in female, Fibromyalgia Pancreatitis Qualifiers: Chronicity: acute Pancreatitis type: unspecified pancreatitis type Acute pancreatitis complication: no infection or necrosis Qualified Code(s): K85.90 - Acute pancreatitis without necrosis or infection, unspecified Disposition: Admitted as Observation Condition on Discharge: Good Instructions: DI for Acute Abdominal Pain Referrals: Provider,Referral, MD [Primary Care Provider] - - Critical Care Critical Care Time: No Attestation: On 07/10/20, the high probability of a clinically significant, sudden or life threatening deterioration of the following system(s) required my full and direct attention, intervention and personal management. The time I documented below is in addition to time spent performing reported procedures but includes the following listed in this critical care notation. Medical Decision Making - Medical Records Medical records reviewed: Yes: I reviewed the patient's medical records. - Ramses Inquiry Pt receiving controlled substance: No Vital Signs: 07/10/20 22:05 Temperature 98.1 F Temperature Source Oral Pulse Rate [Right] 74 Respiratory Rate 16 Blood Pressure [Right Arm] 113/59 L Blood Pressure Mean [Right Arm] 77 Blood Pressure Source [Right Arm] Automatic Cuff 02 Sat by Pulse Oximetry 100 Oxygen Delivery Method Room Air - Lab Data Lab results reviewed: Yes: I reviewed the patient's lab results. Lab Results 07/10/20 22:23: Urine Color Yellow, Urine Appearance Sl cloudy, Urine pH 7.5, Ur Specific [place] 1.015, Urine Protein Negative, Urine Glucose (UA) Negative, Urine Ketones Negative, Urine Blood Negative, Urine Nitrate Negative, Urine Bilirubin Negative, Urine Urobilinogen 0.2, Ur Leukocyte Esterase Negative, Urine WBC Occasional, Ur Squamous Epith Cells 3-5, Urine Bacteria 3+ 07/10/20 22:23: Urine HCG, Qual Negative 07/10/20 22:35: WBC 10.0, RBC 4.33, Hgb 13.2, Hct 38.8, MCV 89.7, MCH 30.4, MCHC 33.9, RDW 13.4, Plt Count 289, MPV 8.2, Neut % (Auto) 57.5, Lymph % (Auto) 36.9, [place] % (Auto) 4.2, Eos % (Auto) 0.0 L, Baso % (Auto) 1.3, Neut # (Auto) 5.8, Lymph # (Auto) 3.7, [place] # (Auto) 0.4, Eos # (Auto) 0.0, Baso # (Auto) 0.1, ESR 26 H 07/10/20 22:35: Sodium 137, Potassium 4.0, Chloride 104, Carbon Dioxide 27, Anion Gap 10.0, BUN 11, Creatinine 0.50 L, Estimated Creat Clear 229, Estimated GFR 142, Est GFR ( Amer) 172, Glucose 96, Calcium 8.9, Total Bilirubin 0.3, AST 22, ALT 20, Alkaline Phosphatase 76, C-Reactive Protein 3.5, Total Protein 6.8, Albumin 4.1, Globulin 2.7, Albumin/Globulin Ratio 1.5, Amylase 159 H, Lipase 419 H, Procalcitonin < 0.030 Result diagrams: 07/10/20 22:35 07/10/20 22:35 Orders (Tests/Meds): ED MEDICATIONS Generic Name Dose Route Start Last Admin Trade Name Freq PRN Reason Stop Dose Admin Sodium Chloride 1,000 mls @ 999 mls/hr 07/10/20 22:45 07/10/20 23:23 Sod Chlor 0.9% 1000ml Bag IV 07/10/20 23:45 999 mls/hr .Q1H1M INO Administration Sodium Chloride 1,000 mls @ 999 mls/hr 07/11/20 00:45 07/11/20 00:33 Sod Chlor 0.9% 1000ml Bag IV 07/11/20 01:45 999 mls/hr .Q1H1M INO Administration Discontinued Medications Generic Name Dose Route Start Last Admin Trade Name Freq PRN Reason Stop Dose Admin Iopamidol 75 ml 07/10/20 23:09 07/10/20 23:09 Iopamidol-370 (76%);100ml Bottle IV 07/10/20 23:10 75 ml ONCE ONE Administration Ketorolac Tromethamine 30 mg 07/10/20 23:22 07/10/20 23:23 Ketorolac 30mg/Ml Vial IV 07/10/20 23:23 30 mg ONCE ONE Administration Morphine Sulfate 4 mg 07/11/20 00:32 07/11/20 00:34 Morphine 4mg/Ml Syringe IV 07/11/20 00:33 4 mg ONCE ONE Administration Ondansetron HCl 4 mg 07/10/20 23:22 07/10/20 23:23 Ondansetron 4mg/2ml Vial IV 07/10/20 23:23 4 mg ONCE ONE Administration Promethazine HCl 25 mg 07/11/20 00:20 07/11/20 00:22
[2020-07-10 23:24] LABS: Procalcitonin < 0.030 ng/mL (0.0-2.0)
[2020-07-10 23:25] LABS: Erythrocyte Sedimentation Rate 26 mm/hr (0-20)
[2020-07-11] VITALS (11 sets, daily range): BP systolic 86–128; BP diastolic 56–76; PULSE 51–67; RESP 14–21; TEMP 36.4–36.8; O2SAT 96–99; BMI 33.3; BMI 33.0
[2020-07-11 01:08] LABS: Ethyl Alcohol < 10 mg/dl (0-10)
[2020-07-11 01:11] LABS: Barbiturates Screen,Urine Negative ng/ml (<200); Benzodiazepines Screen,Urine Negative ng/ml (<200)
[2020-07-11 01:12] LABS: Amphetamine/Metha Screen,Urine Negative ng/ml (<1000)
[2020-07-11 01:13] LABS: Cannabinoid Screen,Urine Positive ng/ml (<50); Cocaine Screen,Urine Negative ng/ml (<300)
[2020-07-11 01:14] LABS: Methadone Screen,Urine Negative ng/ml (<300); Opiate Screen,Urine Negative ng/ml (<300)
[2020-07-11 01:15] LABS: Phencyclidine Screen,Urine Negative ng/ml (<25)
--- NOTE | 2020-07-11 04:15 | PC.NURSE ---
Pt arrived to the unit at this time
--- NOTE | 2020-07-11 07:00 | PC.NURSE ---
Report given to Nhung Barba RN
[2020-07-11 07:48] LABS: Basophils # 0.1 K/mm3 (0-0.2); Eosinophils % 0.2 % (0.1-12.0); Hematocrit 38.1 % (37.0-47.0); Hemoglobin 12.5 g/dL (12.2-16.2); Lymphocytes # 3.2 K/mm3 (0.7-4.5); Lymphocytes % 36.8 % (10-50); Mean Corpuscular HGB Conc 32.8 g/dL (31.8-35.4); Mean Corpuscular Hemoglobin 30.2 pg (27.0-31.2); Mean Corpuscular Volume 92.1 fl (81-99); Mean Platelet Volume 7.5 fl (7.4-10.4); Monocytes # 0.5 K/mm3 (0.1-1.0); Monocytes % 5.1 % (1.7-9.3); Neutrophils % 56.8 % (37.0-80.0); Platelet Count 240 K/mm3 (142-424); Red Blood Count 4.13 M/mm3 (4.20-5.40); Red Cell Distribution Width 13.5 % (11.5-17.5); White Blood Count 8.8 K/mm3 (4.8-10.8)
[2020-07-11 07:53] LABS: Amylase 415 U/L (30-110); Anion Gap 7.2 mEq/L (5-15); Blood Urea Nitrogen 10 mg/dl (7-17); Carbon Dioxide 25 mmol/L (22.0-30.0); Chloride 111 mmol/L (98-107); Creatinine Clearance Estimated 229 mL/min (50-200); Estimated Glomerular Filt Rate 142 ml/min (>60); GFR (African American) 172 ML/MIN (>60); Glucose 94 mg/dl (74-100); Potassium 4.2 mmoL/L (3.5-5.1); Sodium 139 mmol/L (136-145)
[2020-07-11 08:02] LABS: Lipase 3081 U/L (23-300)
[2020-07-11 08:03] LABS: Calcium 7.9 mg/dl (8.4-10.2)
--- NOTE | 2020-07-11 08:49 | P.CONPHA_ITS ---
[facility] Pharm[facility] VTE Monitoring - Patient Demographics Admission date: 07/11/20 Report Date: 07/11/20 Time: 08:49 Allergies/Adverse Reactions: Patient Allergies tramadol Allergy (Verified 06/28/20 18:18) Height: 1.65 m Weight: 90.718 kg Patient Problems: Current Active Problems Fibromyalgia (Acute) Obesity (BMI 30-39.9) (Acute) Tobacco use (Acute) Breast mass in female (Acute) Pancreatitis (Acute) - VTE Risk Labs: VTE Related Lab Results Hgb 12.5 g/dL (12.2-16.2) 07/11/20 07:37 Hct 38.1 % (37.0-47.0) 07/11/20 07:37 Plt Count 240 K/mm3 (142-424) 07/11/20 07:37 BUN 10 mg/dl (7-17) 07/11/20 07:37 Creatinine 0.50 mg/dl (0.52-1.04) L 07/11/20 07:37 Estimated Creat Clear 229 mL/min (50-200) 07/11/20 07:37 Was VTE Risk Assessment Performed: Yes VTE Score: 1 VTE Risk Level: Very Low Risk Clinical Trial Participant: No - Prophylaxis VTE Prophylaxis Ordered?: Yes Types of VTE Prophylaxis: TEDS Knee High
--- NOTE | 2020-07-11 09:24 | HMH.HP ---
*Admission Date: 07/11/20 *Chief complaint: Abdominal Pain *History of present illness: 34-year-old female patient presented to the emergency department for reports of upper abdominal pain for 2 days. She reports she does have a history of pancreatitis and she was admitted to the hospital for the same and discharged 2 weeks ago. She denies alcohol or any new medications. No leukocytosis, H/H stable Chemistries unremarkable amylase was 159 in ER and 415 this a.m. Lipase was 419 in ER last night and 3081 this a.m. 07/10/20 Abd/Pelvis CT: COMPARISON: CT ABDOMEN PELVIS W CON 06/23/2020 1:37 AM FINDINGS: Lungs: Visualized lung bases are clear. Heart: Heart size normal. Mediastinal space: The visualized distal esophagus is normal. Liver: Normal contour. No mass lesions. No intrahepatic biliary ductal dilatation. Gallbladder and bile ducts: Evidence of prior cholecystectomy with no significant dilatation of the common bile duct. Pancreas: Normal. No inflammatory changes or ductal dilation. Spleen: Normal. No splenomegaly. Adrenal glands: Normal. No adrenal mass. Kidneys and ureters: No acute abnormalities. No hydronephrosis or hydroureter. No urinary tract stones are identified. Stomach and bowel: The stomach is unremarkable. Question mildly excessive fluid content in the mid and distal small bowel segments with equivocal slight increase in bowel wall enhancement. This is suspicious for mild gastroenteritis. No lilibeth bowel dilatation or transition point. No evidence of bowel obstruction, perforation, or abscess. No acute colonic abnormalities. Appendix: The appendix is normal in caliber and demonstrates no evidence of appendicitis. Intraperitoneal space: No free fluid or air. Vasculature: No acute process. No abdominal aortic aneurysm. Lymph nodes: No adenopathy. Urinary bladder: Unremarkable as visualized. Reproductive: Retroflexed uterus without acute abnormality. No gross ovarian abnormalities. Small follicles in both ovaries, within physiologic range. Bones/joints: No acute osseous abnormalities. Soft tissues: The previously identified soft tissue density nodule in the lower inner quadrant of the right breast seen on 06/23/2020 is only partially visualized on today's scan but grossly unchanged. It is unchanged back to CT abdomen pelvis 12/21/2019. Directed clinical examination of the nodule and diagnostic mammographic evaluation recommended if not already performed. IMPRESSION: 1. Questionable findings of mild gastroenteritis. No evidence of bowel obstruction, perforation, or abscess. No evidence of pancreatitis. 2. The previously identified 2 cm nodule in the lower inner quadrant of the right breast is marginally visualized on today's scan, grossly unchanged. Directed clinical evaluation and diagnostic mammographic assessment recommended if not already performed. Electronically signed by Rafiq Quiñonez 34-year-old female patient resting quietly in bed with eyes closed, awakens easily to verbal stimuli. She reports abdominal pain has decreased but is still present, she describes pain is been twisting and dull and is mainly in the left upper quadrant and epigastric area. She reports positive flatus. [facility] History I have reviewed the patient's past medical history: Yes Medical History: Reports:: Anxiety, Hyperlipidemia Denies:: Cancer, Diabetes Mellitus Type 1, Diabetes Mellitus Type 2, MRSA, Seizures, Urinary Tract Infection *Have you ever received a pneumonia vaccine?: No *Have you received a flu vaccine this season?: Yes Other Medical History: Reports: Fibromyalgia. Denies: Thyroid Disease Other Surgeries: Yes: Cholecystectomy, Dilation and Curettage. No: Amputation: No Fractures: No - *Social History Last grade of school completed: Some college Smoking Status: Current every day smoker Tobacco Type: cigarettes # Packs/Day (cigarettes): 1
--- NOTE | 2020-07-11 11:34 | HMH.PHAINT ---
clarified home medication list using list from [facility]
--- NOTE | 2020-07-11 16:18 | PC.NURSE ---
Tiarra BIRCH FROM DR. CAMPUZANO OFFICE REPORTED THAT YOVANNY MORINSHANTEChapo WILL NOT RESTART HER MEDS SINCE SHE IS NPO. WILL LET PATIENT KNOW.
--- NOTE | 2020-07-11 16:36 | PC.NURSE ---
REASSESSMENT DONE AT THIS TIME. NO CHANGES NOTED. REPORTS ABDOMINAL PAIN AND TENDERNESS TODAY. REPORTS IV PAIN MEDS ONLY LASTING 2 HOURS. REPORTS NO BM BUT IT PASSING GAS. HYPO ACTIVE BOWEL SOUNDS AND PT IS NPO. IV INFUSING WITHOUT DIFFICULTY. PT REQUESTING HOME MEDS AND NURSE INFORMED PT MD WAS NOT REORDERING R/T NPO STATUS. NO VOMITING OR NAUSEA. NO CURRENT NEEDS. PT REQUESTS PAIN MEDS BUT IS NOT DUE.
[2020-07-11 16:46] LABS: Amylase 195 U/L (30-110); Lipase 395 U/L (23-300)
[2020-07-12 00:42] VITALS: BP 125/76; PULSE 73; RESP 18; TEMP 36.7; O2SAT 96
[2020-07-12 05:02] VITALS: BP 125/74; PULSE 54; RESP 18; TEMP 36.5; O2SAT 97
--- NOTE | 2020-07-12 05:03 | PC.NURSE ---
pt has rested off and on throughout shift, pt has had LUQ pain which was managed with prn dilaudid, pt has had two episodes of emesis and at this time nausea is currently resolved, bs remain hypoactive in all quads, abdominal tenderness remains in LUQ as well as epigastric tenderness, no distention noted, lungs remian clear to auscultate, heart regular, vss, iv patent, no distress noted at this time, will continue to monitor
[2020-07-12 06:42] LABS: Basophils # 0.1 K/mm3 (0-0.2); Basophils % 1.1 % (0.1-2.0); Eosinophils % 0.1 % (0.1-12.0); Hematocrit 34.9 % (37.0-47.0); Hemoglobin 11.5 g/dL (12.2-16.2); Lymphocytes # 2.1 K/mm3 (0.7-4.5); Lymphocytes % 35.1 % (10-50); Mean Corpuscular Hemoglobin 30.2 pg (27.0-31.2); Mean Corpuscular Volume 91.5 fl (81-99); Mean Platelet Volume 7.6 fl (7.4-10.4); Monocytes # 0.2 K/mm3 (0.1-1.0); Monocytes % 3.8 % (1.7-9.3); Neutrophils # 3.6 K/mm3 (1.8-7.8); Neutrophils % 59.9 % (37.0-80.0); Platelet Count 179 K/mm3 (142-424); Red Blood Count 3.82 M/mm3 (4.20-5.40); Red Cell Distribution Width 13.4 % (11.5-17.5)
[2020-07-12 06:46] LABS: Amylase 109 U/L (30-110); Blood Urea Nitrogen 9 mg/dl (7-17); Carbon Dioxide 23 mmol/L (22.0-30.0); Chloride 112 mmol/L (98-107); Creatinine Clearance Estimated 227 mL/min (50-200); Estimated Glomerular Filt Rate 142 ml/min (>60); GFR (African American) 172 ML/MIN (>60); Glucose 81 mg/dl (74-100); Sodium 139 mmol/L (136-145)
[2020-07-12 06:47] LABS: Lipase 93 U/L (23-300)
--- NOTE | 2020-07-12 06:51 | PC.NURSE ---
pt transferred to room 208 at this time via wheelchair, pt alert and oriented no distress noted
[2020-07-12 07:49] VITALS: BP 114/71; PULSE 50; RESP 18; TEMP 36.6; O2SAT 98
[2020-07-12 08:07] VITALS: BMI 33.4
--- NOTE | 2020-07-12 08:54 | HMH.ACPN2 ---
Internal Medicine - PN: Subj *Date: 07/12/20 *Time: 16:06 Interval history: 34-year-old female patient resting in bed with eyes closed, she denies any chest pain or shortness of breath during the night. She does report left upper quadrant and epigastric area tenderness. She remains n.p.o., plan for ERCP in a.m. Exam Vital signs and Labs for Last 24 Hours: Temp Pulse Resp BP Pulse Ox 97.8 F 50 L 18 114/71 98 07/12/20 07:49 07/12/20 07:49 07/12/20 07:49 07/12/20 07:49 07/12/20 07:49 Laboratory Results - last 24 hr 07/11/20 16:32: Amylase 195 H D, Lipase 395 H 07/12/20 06:29: WBC 6.0 D, RBC 3.82 L, Hgb 11.5 L, Hct 34.9 L, MCV 91.5, MCH 30.2, MCHC 33.0, RDW 13.4, Plt Count 179 D, MPV 7.6, Neut % (Auto) 59.9, Lymph % (Auto) 35.1, [place] % (Auto) 3.8, Eos % (Auto) 0.1, Baso % (Auto) 1.1, Neut # (Auto) 3.6, Lymph # (Auto) 2.1, [place] # (Auto) 0.2, Eos # (Auto) 0.0, Baso # (Auto) 0.1 07/12/20 06:29: Sodium 139, Potassium 4.0, Chloride 112 H, Carbon Dioxide 23, Anion Gap 8.0, BUN 9, Creatinine 0.50 L, Estimated Creat Clear 227, Estimated GFR 142, Est GFR ( Amer) 172, Glucose 81, Calcium 8.0 L, Amylase 109 D 07/12/20 06:29: Lipase 93 I & O for Last 24 hours: Intake & Output 07/09/20 07/10/20 07/11/20 07/12/20 23:59 23:59 23:59 23:59 Intake Total 1999 0 / 0 Balance 1999 0 / 0 Weight 200 lb 198 lb 6.656 oz 200 lb 14.79 oz Microbiology Reports for the Last 24 Hours: Microbiology 07/10/20 22:23 Urine,Clean Catch Urine Culture - Preliminary - Constitutional no acute distress - *Routine HEENT Exam Head: Present: normocephalic Eye: Present: EOMI ENT: Present: mucous membranes moist - *Routine Neck Exam Present: trachea midline. Absent: tracheal deviation - *Routine Respiratory Exam Present: CTA bilaterally. Absent: accessory muscle use - *Routine Cardiovascular Exam Present: RRR - *Routine Abdominal Exam Present: soft, normoactive bowel sounds, tenderness, firm Comments: Tenderness left upper quadrant and epigastric areas - *Routine Extremities Exam Present: full ROM, pulses intact. Absent: cyanosis, clubbing, calf tenderness - *Routine Skin Exam Present: intact, dry, warm. Absent: cyanosis, erythema - *Routine Neurological Exam Present: alert, oriented X3. Absent: motor deficit, pronator drift - Routine Psychiatric Exam Present: normal affect, normal thought process. Absent: auditory hallucinations, visual hallucinations Assessment and Plan (1) Obesity (BMI 30-39.9) Status: Acute Category: Medical Code(s): E66.9 - Obesity, unspecified (2) Pancreatitis Status: Acute Qualifiers: Chronicity: acute Pancreatitis type: unspecified pancreatitis type Acute pancreatitis complication: no infection or necrosis Qualified Code(s): K85.90 - Acute pancreatitis without necrosis or infection, unspecified Category: Medical Code(s): K85.90 - Acute pancreatitis without necrosis or infection, unspecified (3) Abdominal pain Status: Acute Category: Medical Code(s): R10.9 - Unspecified abdominal pain (4) Acute pancreatitis Status: Acute Qualifiers: Pancreatitis type: unspecified pancreatitis type Acute pancreatitis complication: no infection or necrosis Qualified Code(s): K85.90 - Acute pancreatitis without necrosis or infection, unspecified Category: Medical Code(s): K85.90 - Acute pancreatitis without necrosis or infection, unspecified (5) Tobacco use Status: Acute Category: Social Hx Code(s): Z72.0 - Tobacco use - Assessment and plan all Dx Assessment and Plan for all problems:: Rounded with Dr. Escobar, all orders per Dr. Escobar: 1. Plan for ERCP 2. Continue current medical management
[2020-07-12 14:41] VITALS: BP 124/80; PULSE 56; RESP 17; TEMP 36.7; O2SAT 100
--- NOTE | 2020-07-12 16:09 | PC.NURSE ---
RN reassessment completed, no acute changes from AM assessment. Remains A & O X4, independent with ADL'S. Pt has rested in bed this shift with visitor present at bedside. Medicated per EMAR x2 this shift with dilaudid 1 mg IV, pt reported improvement in pain both times. Pt received zofran 4mg IV x1 this shift for c/o nausea, no further complaints. Abd soft and mildly tender with BS hypoactive. Pt remains NPO for ERCP procedure tomorrow, consent reviewed with pt and signed. Voiding without any difficulty, reports passing flatus, denies BM this shift. Will continue to monitor.
[2020-07-12 20:00] VITALS: BP 126/83; PULSE 56; RESP 17; TEMP 36.8; O2SAT 100
[2020-07-12 20:45] VITALS: O2SAT 100
[2020-07-13] VITALS (16 sets, daily range): BP systolic 115–155; BP diastolic 58–87; PULSE 46–75; RESP 16–18; TEMP 35.9–36.7; O2SAT 97–100; BMI 34.1
--- NOTE | 2020-07-13 04:21 | PC.NURSE ---
NO ACUTE CHANGES FROM PREVIOUS ASSESSMENT,LUNGS CLEAR,TENDERNESS TO LEFT SIDE OF ABD.PT HAS BEEN MEDICATED SEVERAL TIMES WITH DILUDID AND ONCE WITH ZOFRAN,PT HAS SLEPT OFF AND ON THROUGHTOUT THE NIGHT,NPO FOR A ERCP TODAY,PT WAS GIVEN SOME TOOTHLETE SWABS TO MOISTEN HER MOUTH,WILLL CONTINUE TO MONITOR
[2020-07-13 06:52] LABS: Basophils # 0.1 K/mm3 (0-0.2); Basophils % 0.9 % (0.1-2.0); Eosinophils % 0.1 % (0.1-12.0); Lymphocytes % 28.2 % (10-50); Mean Corpuscular HGB Conc 34.1 g/dL (31.8-35.4); Mean Corpuscular Hemoglobin 30.7 pg (27.0-31.2); Mean Corpuscular Volume 89.8 fl (81-99); Monocytes # 0.3 K/mm3 (0.1-1.0); Monocytes % 3.7 % (1.7-9.3); Neutrophils # 4.8 K/mm3 (1.8-7.8); Neutrophils % 67.1 % (37.0-80.0); Platelet Count 174 K/mm3 (142-424); Red Cell Distribution Width 13.2 % (11.5-17.5); White Blood Count 7.2 K/mm3 (4.8-10.8)
[2020-07-13 06:58] LABS: Lipase 57 U/L (23-300)
[2020-07-13 06:59] LABS: Amylase 75 U/L (30-110); Anion Gap 10.8 mEq/L (5-15); Blood Urea Nitrogen 8 mg/dl (7-17); Calcium 8.1 mg/dl (8.4-10.2); Carbon Dioxide 22 mmol/L (22.0-30.0); Chloride 107 mmol/L (98-107); Creatinine Clearance Estimated 235 mL/min (50-200); Estimated Glomerular Filt Rate 142 ml/min (>60); GFR (African American) 172 ML/MIN (>60); Glucose 66 mg/dl (74-100); Potassium 3.8 mmoL/L (3.5-5.1); Sodium 136 mmol/L (136-145)
--- NOTE | 2020-07-13 09:10 | HMH.ACPN2 ---
Internal Medicine - PN: Subj *Date: 07/13/20 *Time: 09:10 Interval history: 34 YOF resting in bed, awakens easily. She reports ongoing LUQ and epigastric tenderness. She also reports some nausea. She is to have an ERCP today Exam Vital signs and Labs for Last 24 Hours: Temp Pulse Resp BP Pulse Ox 98.4 F 70 16 128/79 96 07/14/20 07:42 07/14/20 07:51 07/14/20 07:51 07/14/20 07:42 07/14/20 07:51 I & O for Last 24 hours: Intake & Output 07/11/20 07/12/20 07/13/20 07/14/20 23:59 23:59 23:59 23:59 Intake Total 1999 0 / 0 3935 / 3935 1425 / 1425 Output Total 0 / 0 Balance 1999 0 / 0 3935 / 3935 1425 / 1425 Weight 198 lb 6.656 oz 200 lb 14.79 oz 205 lb 204 lb Microbiology Reports for the Last 24 Hours: Microbiology 07/10/20 22:23 Urine,Clean Catch Urine Culture - Final Multiple organisms, suggests contamination. - Constitutional no acute distress - *Routine HEENT Exam Head: Present: normocephalic Eye: Present: EOMI ENT: Present: mucous membranes moist - *Routine Neck Exam Present: trachea midline. Absent: tracheal deviation - *Routine Respiratory Exam Present: CTA bilaterally. Absent: accessory muscle use - *Routine Cardiovascular Exam Present: RRR - *Routine Abdominal Exam Present: soft, normoactive bowel sounds, tenderness. Absent: firm Comments: LUQ and epigastric tenderness - *Routine Extremities Exam Present: clubbing, full ROM, pulses intact. Absent: cyanosis, edema, calf tenderness - *Routine Skin Exam Present: intact, dry, warm. Absent: cyanosis, erythema - *Routine Neurological Exam Present: alert, oriented X3. Absent: motor deficit, altered mental status - Routine Psychiatric Exam Present: normal affect, normal thought process, auditory hallucinations. Absent: homicidal ideation Assessment and Plan (1) Obesity (BMI 30-39.9) Status: Acute Category: Medical Code(s): E66.9 - Obesity, unspecified (2) Pancreatitis Status: Acute Qualifiers: Chronicity: acute Pancreatitis type: unspecified pancreatitis type Acute pancreatitis complication: no infection or necrosis Qualified Code(s): K85.90 - Acute pancreatitis without necrosis or infection, unspecified Category: Medical Code(s): K85.90 - Acute pancreatitis without necrosis or infection, unspecified (3) Abdominal pain Status: Acute Category: Medical Code(s): R10.9 - Unspecified abdominal pain (4) Acute pancreatitis Status: Acute Qualifiers: Pancreatitis type: unspecified pancreatitis type Acute pancreatitis complication: no infection or necrosis Qualified Code(s): K85.90 - Acute pancreatitis without necrosis or infection, unspecified Category: Medical Code(s): K85.90 - Acute pancreatitis without necrosis or infection, unspecified (5) Tobacco use Status: Acute Category: Social Hx Code(s): Z72.0 - Tobacco use - Assessment and plan all Dx Assessment and Plan for all problems:: Rounded w/ Dr. Murillo, all orders per Dr. Mckinley: 1. ERCP today
--- NOTE | 2020-07-13 12:17 | PC.NURSE ---
Pt. to Pre-op via wheelchair, by OR staff.
--- NOTE | 2020-07-13 12:30 | FL_ITS ---
PROCEDURE: FL ERCP CLINICAL INDICATION: abdominal pain COMPARISON: No exams were available for comparison FINDINGS: Fluoroscopy time: 1 minutes and 33 seconds. Single view submitted during the ERCP with a scope in place but no contrast injected. IMPRESSION: Only a lap grinder view submitted showing the endoscope in place Dictated by: Edgardo Roque MD 07/13/2020 16:36 Edgardo Roque MD in [facility] 07/13/2020 16:36
--- NOTE | 2020-07-13 12:56 | HMH.PROC ---
[facility] Procedure Note Procedure Note:: ERCP procedure Report: Endoscopic retrograde cholangiopancreatography with biliary sphincterotomy, balloon extraction and cold biopsies Endoscopist: Jenaro Heller II, MD Referring Physician: MARK Contreras/George Mckinley MD Date of Procedure: July 13, 2020 Equipment: Olympus 180 side viewing endoscope duodenoscope Sedation: MAC sedation Indication: Mrs. Mcnally is a 34-year-old female with recurrent pancreatitis. In the past, this was felt to be possibly related to alcohol. She states that she has not been drinking recently. She did have cholecystectomy in 2011 due to gallstones. She did have pancreatitis previously and November 2019 and was admitted. Her sed rate and liver chemistries were normal. She reports no NSAIDs or diuretics. She reports no family history of pancreatitis. She previously admitted to some intermittent binge drinking. She did have an EGD in November 2019 showing bile reflux with linear reactive gastropathy. Presently, she was once again admitted with pancreatitis. Her initial amylase 415 and lipase 3081 were elevated. These did decline into the normal range. She reports no recent alcohol. Her liver chemistries were normal. She did have a CT scan of the abdomen showing questionable mild gastroenteritis. There was no significant changes of pancreatitis. Given the fact that this is her third or fourth bout of pancreatitis, ERCP is performed. Procedure: Prior to the procedure, a history and physical exam was performed, and patient's medications and allergies were reviewed. The risks, benefits and alternatives of the sedation and procedure were discussed with the patient. All questions were answered and informed consent was obtained. The patient was brought to the fluoroscopic radiology room. Patient identification and proposed procedure were verified by the physician and the nurse. The patient was placed in a swimmer's position between left lateral decubitus and prone position and the scope was passed under direct vision. Throughout the procedure, the patient's blood pressure, pulse, and oxygen saturations were monitored continuously. The ERCP was accomplished without difficulty. The patient tolerated the procedure well. Findings: The side-viewing duodenal scope was passed directly into the upper esophagus and advanced to the second portion of the duodenum. There was some bile gastropathy of the antrum and body of the stomach. There was some scalloping of the duodenal conniventes. Cold biopsies were obtained from the post bulbar duodenum to rule out celiac disease. The ampulla was well visualized. The common bile duct was selectively cannulated. The cholangiogram did show a 6 mm common bile duct. There was normal filling of the intrahepatic biliary tree. There was a long cystic duct stump with surgical shantel identified. There was no direct filling defect or strictures but there was certainly delayed drainage of bile and contrast from the biliary system. After 5 minutes time, this delayed drainage was considered to be sphincter of Oddi dysfunction. A biliary sphincterotomy was performed. Initially there was a small amount of bile and then there was a yellow soft stone that was delivered from the biliary system. There was some yellow debris. Next, the biliary tree was swept using a 10 mm sweeping balloon from the hilum and there was excellent decompression of the biliary system. The pancreatic duct was not cannulated intentionally. Impression: 1. Choledocholithiasis (soft yellow stone and sludge) status post biliary sphincterotomy and balloon extraction 2. Possible sphincter of Oddi dysfunction 3. Scalloped duodenal conniventes?rule out celiac disease Plan: The patient should have clinical improvement with clearance of the biliary system and biliary sphincterotomy. I will follow-up the biopsies to rule out celiac disease. I will also obtain celiac serologies
--- NOTE | 2020-07-13 17:21 | PC.NURSE ---
Pt has been pleasant and cooperative this shift. A&O X4. Pt has complained of pain and nausea this shift and has been medicated per MAR with favorable results. Pt is on room air with sats. >90%. Lungs CTA. No edema noted. Skin is C/D/I. Abdomen is soft and tender. No vomiting or diarrhea. Urine is clear and yellow. Pt is voiding without issue. Pt is post-ERCP and is currently NPO status until morning. Pt ambulates independently to/from the bathroom and throughout the room. 22 G peripheral IV in the RT wrist is patent and infusing NS @ 100 ML/HR. VSS. Call light within reach. Will continue to monitor.
--- NOTE | 2020-07-13 17:47 | HMH.ANESCL ---
[facility] Anesthesia Checklist - Patient Identification Patient Identification: Arm Band - Structural Data Admitted From: Inpatient Planned Operative Procedure/s: ERCP Consent for Planned Operative Procedure(s) Verified: Yes Verified Documents: Surgical Consent, History and Physical - NPO Status Verified Time NPO: 00:00 - Additional verifications Anesthesia Reactions: No - Airway Assessment C-Spine Mobility Assessed: Yes TMJ Mobility Assessed: Yes Dentition: Good Dentition - Neurological Assessment Level of Consciousness: Awake, Alert - Anesthesia Plan Anesthesia Risk discussed: Yes Anesthesia Plan: Verified ASA Class: II Anesthesia Type: MAC [facility] History Medical History: Reports:: Anxiety, Hyperlipidemia Denies:: Cancer, Diabetes Mellitus Type 1, Diabetes Mellitus Type 2, MRSA, Seizures, Urinary Tract Infection *Have you ever received a pneumonia vaccine?: No *Have you received a flu vaccine this season?: Yes Other Medical History: Reports: Fibromyalgia. Denies: Thyroid Disease Anesthesia experience/problems:: None Other Surgeries: Yes: Cholecystectomy, Dilation and Curettage. No: Amputation: No Fractures: No - *Social History Last grade of school completed: Some college Smoking Status: Current every day smoker Tobacco Type: cigarettes # Packs/Day (cigarettes): 1 Alcohol Intake: current Alcohol Intake Frequency:: holidays/special occasions only Substance Use Type: marijuana *Occupational Status:: unemployed Housing: house Household Members: children *Travel in the last 8 weeks: None - Psychiatric History Pschychiatric History:: Reports:: Anxiety Family Hx:: Anemia, Asthma, Coronary Artery Disease, Alcoholism
[2020-07-14] VITALS: BP 130/85; PULSE 70; RESP 16; TEMP 37.1; O2SAT 98
[2020-07-14 04:00] VITALS: BP 121/75; PULSE 55; RESP 16; TEMP 36.8; O2SAT 98
--- NOTE | 2020-07-14 04:03 | PC.NURSE ---
Patient oriented times 4. Patient remains in pain from ERCP during previous shift. Thus far, patient has required Dilaudid 1 mg X 2, Phenergan IV X 1 and Zofran 4 mg X 2. Patient has received relief from pain and nausea but still requires relief. Patient intake is ice chips and will progress to a clear diet at breakfast. Will continue to monitor for any acute changes.
[2020-07-14 05:00] VITALS: BMI 34.0
[2020-07-14 07:42] VITALS: BP 128/79; PULSE 70; RESP 16; TEMP 36.9; O2SAT 96
[2020-07-14 07:51] VITALS: PULSE 70; RESP 16; O2SAT 96
--- NOTE | 2020-07-14 15:15 | HMH.ACPN2 ---
Internal Medicine - PN: Subj *Date: 07/14/20 *Time: 15:15 Interval history: continues to have some trudy pain ercp noted Exam Vital signs and Labs for Last 24 Hours: Temp Pulse Resp BP Pulse Ox 98.4 F 70 16 128/79 96 07/14/20 07:42 07/14/20 07:51 07/14/20 07:51 07/14/20 07:42 07/14/20 07:51 I & O for Last 24 hours: Intake & Output 07/11/20 07/12/20 07/13/20 07/14/20 23:59 23:59 23:59 23:59 Intake Total 1999 0 / 0 3935 / 3935 1665 / 1665 Output Total 0 / 0 Balance 1999 0 / 0 3935 / 3935 1665 / 1665 Weight 198 lb 6.656 oz 200 lb 14.79 oz 205 lb 204 lb - Constitutional no acute distress - *Routine HEENT Exam Head: Present: normocephalic Eye: Present: EOMI, PERRL ENT: Present: mucous membranes moist - *Routine Neck Exam Present: supple. Absent: lymphadenopathy - *Routine Respiratory Exam Present: CTA bilaterally - *Routine Cardiovascular Exam Present: RRR - *Routine Abdominal Exam Present: soft, tenderness. Absent: distended, rebound, guarding, rigid - *Routine Extremities Exam Absent: cyanosis, clubbing, edema - *Routine Skin Exam Present: warm. Absent: rash - *Routine Neurological Exam Present: alert, oriented X3 Assessment and Plan (1) Obesity (BMI 30-39.9) Status: Acute Category: Medical Code(s): E66.9 - Obesity, unspecified (2) Pancreatitis Status: Acute Qualifiers: Chronicity: acute Pancreatitis type: unspecified pancreatitis type Acute pancreatitis complication: no infection or necrosis Qualified Code(s): K85.90 - Acute pancreatitis without necrosis or infection, unspecified Category: Medical Code(s): K85.90 - Acute pancreatitis without necrosis or infection, unspecified (3) Abdominal pain Status: Acute Category: Medical Code(s): R10.9 - Unspecified abdominal pain (4) Acute pancreatitis Status: Acute Qualifiers: Pancreatitis type: unspecified pancreatitis type Acute pancreatitis complication: no infection or necrosis Qualified Code(s): K85.90 - Acute pancreatitis without necrosis or infection, unspecified Category: Medical Code(s): K85.90 - Acute pancreatitis without necrosis or infection, unspecified (5) Tobacco use Status: Acute Category: Social Hx Code(s): Z72.0 - Tobacco use - Assessment and plan all Dx Assessment and Plan for all problems:: will advance to low fat diet and gauge her tolerance
[2020-07-14 16:00] VITALS: BP 134/88; PULSE 59; RESP 18; TEMP 36.5; O2SAT 97
--- NOTE | 2020-07-14 16:56 | PC.NURSE ---
Pt has been pleasant and cooperative this shift. A&O X4. Pt has complained of pain X3 this shift and has been medicated per MAR with favorable results. Pt is on room air with sats. >90%. Lungs CTA. No edema noted. Skin is C/D/I. Abdomen is soft and non-tender. No vomiting or diarrhea. Urine is clear and yellow. Pt is voiding without issue. Pt is currently receiving a low-fat diet and is tolerating well thus far. Pt ambulates independently to/from the bathroom and throughout the room. 22 G peripheral IV in the RT wrist is patent and infusing NS @ 100 ML/HR. VSS. Call light within reach. Will continue to monitor.
[2020-07-14 20:00] VITALS: BP 128/82; PULSE 60; RESP 16; TEMP 36.5; O2SAT 100
--- NOTE | 2020-07-15 03:01 | PC.NURSE ---
A&OX4. PT TOLERATING RA WELL. PT C/O PAIN IN ABD AND NA X1 AT BEGINNING OF SHIFT. TX WITH PRN MEDICATION. ON REASSESSMENT, PT SLEEPING IN BED. NO C/O SINCE THEN. PT HAS SLEPT MAJORITY OF SHIFT. PT TOLERATING ADVANCED DIET WELL. VSS WILL CONTINUE TO MONITOR.
[2020-07-15 04:00] VITALS: BP 146/87; PULSE 64; RESP 16; TEMP 36.5; O2SAT 99
--- NOTE | 2020-07-15 04:43 | PC.NURSE ---
THIS NURSE ENCOURAGED PT TO TRY PO PAIN MEDICATION, BUT PT CONSISTANTLY ASKS FOR DILAUDID. EDUCATED PT.
[2020-07-15 05:00] VITALS: BMI 34.0
[2020-07-15 07:10] LABS: Basophils # 0.1 K/mm3 (0-0.2); Basophils % 1.3 % (0.1-2.0); Eosinophils % 0.4 % (0.1-12.0); Hematocrit 35.1 % (37.0-47.0); Hemoglobin 12.2 g/dL (12.2-16.2); Lymphocytes % 35.3 % (10-50); Mean Corpuscular HGB Conc 34.9 g/dL (31.8-35.4); Mean Corpuscular Hemoglobin 30.8 pg (27.0-31.2); Mean Corpuscular Volume 88.2 fl (81-99); Mean Platelet Volume 7.9 fl (7.4-10.4); Monocytes # 0.3 K/mm3 (0.1-1.0); Monocytes % 5.9 % (1.7-9.3); Neutrophils # 3.3 K/mm3 (1.8-7.8); Neutrophils % 57.1 % (37.0-80.0); Platelet Count 176 K/mm3 (142-424); Red Blood Count 3.97 M/mm3 (4.20-5.40); Red Cell Distribution Width 13.6 % (11.5-17.5); White Blood Count 5.7 K/mm3 (4.8-10.8)
[2020-07-15 07:46] LABS: Alanine Aminotransferase 54 U/L (12-78); Albumin Level 3.4 g/dl (3.5-5.0); Albumin/Globulin Ratio 1.4 (1.1-1.8); Alkaline Phosphatase 72 U/L (38-126); Anion Gap 6.8 mEq/L (5-15); Aspartate Amino Transferase 36 U/L (14-36); Bilirubin,Total 0.5 mg/dl (0.2-1.3); Blood Urea Nitrogen 3 mg/dl (7-17); Calcium 8.3 mg/dl (8.4-10.2); Carbon Dioxide 27 mmol/L (22.0-30.0); Chloride 106 mmol/L (98-107); Creatinine Clearance Estimated 234 mL/min (50-200); Estimated Glomerular Filt Rate 142 ml/min (>60); GFR (African American) 172 ML/MIN (>60); Globulin 2.4 g/dL (1.3-3.2); Glucose 117 mg/dl (74-100); Lipase 179 U/L (23-300); Potassium 3.8 mmoL/L (3.5-5.1); Sodium 136 mmol/L (136-145); Total Protein,Serum 5.8 g/dl (6.3-8.2)
[2020-07-15 08:00] VITALS: BP 115/80; PULSE 64; RESP 17; TEMP 36.4; O2SAT 95
--- NOTE | 2020-07-15 09:01 | HMH.DCSUM ---
General - General Admission date:: 07/11/20 Discharge date: 07/15/20 HPI HPI: 34-year-old female patient presented to the emergency department for reports of upper abdominal pain for 2 days. She reports she does have a history of pancreatitis and she was admitted to the hospital for the same and discharged 2 weeks ago. She denies alcohol or any new medications. No leukocytosis, H/H stable Chemistries unremarkable amylase was 159 in ER and 415 this a.m. Lipase was 419 in ER last night and 3081 this a.m. 07/10/20 Abd/Pelvis CT: COMPARISON: CT ABDOMEN PELVIS W CON 06/23/2020 1:37 AM FINDINGS: Lungs: Visualized lung bases are clear. Heart: Heart size normal. Mediastinal space: The visualized distal esophagus is normal. Liver: Normal contour. No mass lesions. No intrahepatic biliary ductal dilatation. Gallbladder and bile ducts: Evidence of prior cholecystectomy with no significant dilatation of the common bile duct. Pancreas: Normal. No inflammatory changes or ductal dilation. Spleen: Normal. No splenomegaly. Adrenal glands: Normal. No adrenal mass. Kidneys and ureters: No acute abnormalities. No hydronephrosis or hydroureter. No urinary tract stones are identified. Stomach and bowel: The stomach is unremarkable. Question mildly excessive fluid content in the mid and distal small bowel segments with equivocal slight increase in bowel wall enhancement. This is suspicious for mild gastroenteritis. No lilibeth bowel dilatation or transition point. No evidence of bowel obstruction, perforation, or abscess. No acute colonic abnormalities. Appendix: The appendix is normal in caliber and demonstrates no evidence of appendicitis. Intraperitoneal space: No free fluid or air. Vasculature: No acute process. No abdominal aortic aneurysm. Lymph nodes: No adenopathy. Urinary bladder: Unremarkable as visualized. Reproductive: Retroflexed uterus without acute abnormality. No gross ovarian abnormalities. Small follicles in both ovaries, within physiologic range. Bones/joints: No acute osseous abnormalities. Soft tissues: The previously identified soft tissue density nodule in the lower inner quadrant of the right breast seen on 06/23/2020 is only partially visualized on today's scan but grossly unchanged. It is unchanged back to CT abdomen pelvis 12/21/2019. Directed clinical examination of the nodule and diagnostic mammographic evaluation recommended if not already performed. IMPRESSION: 1. Questionable findings of mild gastroenteritis. No evidence of bowel obstruction, perforation, or abscess. No evidence of pancreatitis. 2. The previously identified 2 cm nodule in the lower inner quadrant of the right breast is marginally visualized on today's scan, grossly unchanged. Directed clinical evaluation and diagnostic mammographic assessment recommended if not already performed. Electronically signed by Rafiq Quiñonez 34-year-old female patient resting quietly in bed with eyes closed, awakens easily to verbal stimuli. She reports abdominal pain has decreased but is still present, she describes pain is been twisting and dull and is mainly in the left upper quadrant and epigastric area. She reports positive flatus. Hospital Course Hospital Course: pt with slow improvement with ivf and bowel rest - pt was seen by gi-[facility] OPERATOR procedure Report: Endoscopic retrograde cholangiopancreatography with biliary sphincterotomy, balloon extraction and cold biopsies Endoscopist: Jenaro Heller II, MD Referring Physician: MARK Contreras/George Mckinley MD Date of Procedure: July 13, 2020 Equipment: Olympus 180 side viewing endoscope duodenoscope Sedation: MAC sedation Indication: Mrs. Mcnally is a 34-year-old female with recurrent pancreatitis. In the past, this was felt to be possibly related to alcohol. She states that she has not been drinking recently. She did have ch
[2020-07-19 05:50] LABS: Deamidated Gliadin Abs, IgA 6 units (0-19); Deamidated Gliadin Abs, IgG 2 units (0-19); Endomysial IgA Antibody Negative (Negative); Tissue Transglutaminase IgA Ab <2 U/mL (0-3); Tissue Transglutaminase IgG Ab 3 U/mL (0-5)
[2020-07-19 05:52] LABS: Reticulin IgA Antibody Negative titer (Neg:<1:2.5)
== END 2020-07-15 10:40 | disposition home or self-care (01) | DRG 444 ==
LOC: ER 22:20 → 2ND 07-11 01:04 → OB 07-11 10:56 → 2ND 07-12 06:55
PROVIDERS: Family Medicine; Internal Medicine Gastroenterology; Nurse Practitioner Family; Admitting Provider Emergency Medicine; Emergency Provider Emergency Medicine; Visit Provider Emergency Medicine
PROC: 0FC98ZZ Extirpation of Matter from Common Bile Duct, Via Natural or Artificial Opening Endoscopic (ICD-10-PCS; principal; 2020-07-13 13:30)
DX: K80.50 Calculus of bile duct without cholangitis or cholecystitis without obstruction (principal); K85.90 Acute pancreatitis without necrosis or infection, unspecified; F17.210 Nicotine dependence, cigarettes, uncomplicated; E66.9 Obesity, unspecified; Z68.34 Body mass index [BMI] 34.0-34.9, adult; E78.5 Hyperlipidemia, unspecified; M79.7 Fibromyalgia; F41.9 Anxiety disorder, unspecified; K83.8 Other specified diseases of biliary tract
CPT/HCPCS: 43264; 43239; 36415; 74177; 74330; 80048; 80053; 80305; 81001; 81025; 82150; 83516; 83690; 83735; 84145; 85025; 85651; 86140; 86255; 86256; 87086; 88305; 96365; 96366; 96375; 99284; J2405; Q9967; U0003

== ENCOUNTER 2020-07-17 17:26 | Observation (INO) | payer BC, SELFPAY ==
[2020-07-17] VITALS (7 sets, daily range): BP systolic 118–150; BP diastolic 71–94; PULSE 71–118; RESP 16–20; TEMP 36.6–36.8; O2SAT 94–99; BMI 33.3; BMI 33.7
[2020-07-17 18:11] LABS: Chloride 100 mmol/L (98-107)
[2020-07-17 18:12] LABS: Potassium 4.4 mmoL/L (3.5-5.1); Sodium 134 mmol/L (136-145)
[2020-07-17 18:15] LABS: Amylase 147 U/L (30-110); Anion Gap 15.4 mEq/L (5-15); Carbon Dioxide 23 mmol/L (22.0-30.0); Creatinine Clearance Estimated 229 mL/min (50-200); Estimated Glomerular Filt Rate 142 ml/min (>60); GFR (African American) 172 ML/MIN (>60); Glucose 99 mg/dl (74-100)
[2020-07-17 18:16] LABS: Basophils # 0.1 K/mm3 (0-0.2); Basophils % 0.8 % (0.1-2.0); Eosinophils # 0.1 K/mm3 (0.0-0.4); Eosinophils % 0.7 % (0.1-12.0); Hematocrit 40.5 % (37.0-47.0); Hemoglobin 13.8 g/dL (12.2-16.2); Lymphocytes # 2.7 K/mm3 (0.7-4.5); Lymphocytes % 26.1 % (10-50); Mean Corpuscular Hemoglobin 30.1 pg (27.0-31.2); Mean Corpuscular Volume 88.5 fl (81-99); Mean Platelet Volume 8.8 fl (7.4-10.4); Monocytes # 0.5 K/mm3 (0.1-1.0); Monocytes % 4.5 % (1.7-9.3); Neutrophils # 7.1 K/mm3 (1.8-7.8); Neutrophils % 67.9 % (37.0-80.0); Platelet Count 263 K/mm3 (142-424); Red Blood Count 4.58 M/mm3 (4.20-5.40); Red Cell Distribution Width 13.8 % (11.5-17.5); White Blood Count 10.4 K/mm3 (4.8-10.8)
[2020-07-17 18:23] LABS: Microscopic, Urine URINE MICROSCOPIC (MICROSCOPIC)
[2020-07-17 18:30] LABS: Appearance,Urine CLEAR (Clear); Bilirubin,Urine Negative (Negative); Blood, Urine Negative (Negative); Color,Urine YELLOW (Yellow); Glucose,Urine (UA) Negative (Negative); Ketones,Urine Negative (Negative); Leukocyte Esterase,Urine Negative (Negative); Nitrate,Urine Negative (Negative); Protein,Urine Negative (Negative); Urobilinogen,Urine 0.2 EU/dl (0.2)
[2020-07-17 18:32] LABS: Lipase 78 U/L (23-300)
--- NOTE | 2020-07-17 18:37 | HMH.EDGENADL ---
ED Disposition Clinical Impression: Abdominal pain Qualifiers: Abdominal location: upper abdomen, unspecified Qualified Code(s): R10.10 - Upper abdominal pain, unspecified Disposition: Admitted as Observation Condition on Discharge: Fair Referrals: London Mason MD [Primary Care Provider] - - Critical Care Critical Care Time: No Attestation: On 07/17/20, the high probability of a clinically significant, sudden or life threatening deterioration of the following system(s) required my full and direct attention, intervention and personal management. The time I documented below is in addition to time spent performing reported procedures but includes the following listed in this critical care notation. Medical Decision Making - Ramses Inquiry Pt receiving controlled substance: Yes Ramses was queried for this patient: Yes Risks and benefits of using a controlled substance: were not discussed with pt by me Vital Signs: 07/17/20 17:40 Temperature 98.1 F Temperature Source Oral Pulse Rate [Right] 118 H Respiratory Rate 20 Blood Pressure [Right Arm] 130/92 H Blood Pressure Mean [Right Arm] 104 Blood Pressure Position [Right Arm] Sitting 02 Sat by Pulse Oximetry 97 Oxygen Delivery Method Room Air - Lab Data Lab Results 07/17/20 17:30: Urine Color Yellow, Urine Appearance Clear, Urine pH 7.0, Ur Specific [place] 1.010, Urine Protein Negative, Urine Glucose (UA) Negative, Urine Ketones Negative, Urine Blood Negative, Urine Nitrate Negative, Urine Bilirubin Negative, Urine Urobilinogen 0.2, Ur Leukocyte Esterase Negative, Urine RBC 3-5, Urine WBC 3-5, Ur Squamous Epith Cells 3-5, Urine Bacteria Trace 07/17/20 17:30: Urine HCG, Qual Negative 07/17/20 17:49: WBC 10.4 D, RBC 4.58, Hgb 13.8, Hct 40.5, MCV 88.5, MCH 30.1, MCHC 34.0, RDW 13.8, Plt Count 263 D, MPV 8.8, Neut % (Auto) 67.9, Lymph % (Auto) 26.1, Towner % (Auto) 4.5, Eos % (Auto) 0.7, Baso % (Auto) 0.8, Neut # (Auto) 7.1, Lymph # (Auto) 2.7, Towner # (Auto) 0.5, Eos # (Auto) 0.1, Baso # (Auto) 0.1 07/17/20 17:49: Lipase 78 07/17/20 17:49: Sodium 134 L, Potassium 4.4, Chloride 100, Carbon Dioxide 23, Anion Gap 15.4 H, BUN 10 D, Creatinine 0.50 L, Estimated Creat Clear 229, Estimated GFR 142, Est GFR ( Amer) 172, Glucose 99, Calcium 9.5 D, Amylase 147 H 07/17/20 17:49: Total Bilirubin 0.4, Direct Bilirubin 0.4, Conjugated Bilirubin 0.0, Indirect Bilirubin 0.0, Unconjugated Bilirubin 0.0, AST 50 H D, ALT 61, Alkaline Phosphatase 104, Total Protein 7.8 D, Albumin 4.7 Result diagrams: 07/17/20 17:49 07/17/20 17:49 Orders (Tests/Meds): ED MEDICATIONS Discontinued Medications Generic Name Dose Route Start Last Admin Trade Name Freq PRN Reason Stop Dose Admin Hydromorphone HCl 1 mg 07/17/20 18:44 07/17/20 18:50 Hydromorphone 2mg/Ml Syringe IV 07/17/20 18:45 1 mg ONCE ONE Administration Ondansetron HCl 4 mg 07/17/20 18:43 07/17/20 18:49 Ondansetron 4mg/2ml Vial IV 07/17/20 18:44 4 mg ONCE ONE Administration Sodium Chloride 1,000 ml 07/17/20 18:43 07/17/20 18:50 Sodium Chloride 0.9% 1000ml Bag IV 07/17/20 18:44 1,000 ml BOLUS ONE Administration - Physician Consults Physician Consulted: Neus Time: 18:49 Reason -: Pt condition Comment/Response: Prefers for patient to be treated and discharged if she improves symptomatically. I will contact him once treatment is completed. Additional Consult: Neus Time: 20:07 Reason -: Admission, Pt condition Comment/Response: Recommends to admit the patient to the hospital. We discussed the patient's clinical information, including history, exam, laboratory and radiology results and ED course. Per hospital procedure, I will write temporary bridge inpatient orders on the patient. Specific orders requested by the admitting physician: Continue Dilaudid, Zofran, IV fluids - Reevaluation(s) Time: 20:00 Reevaluation #1: States no improvement in pain. States she is afraid to go
[2020-07-17 18:38] LABS: Urine Pregnancy, HCG Qual. Negative (Negative)
[2020-07-17 18:48] LABS: Bacteria,Urine Trace /lpf
[2020-07-17 19:18] LABS: Alanine Aminotransferase 61 U/L (12-78); Albumin Level 4.7 g/dl (3.5-5.0); Alkaline Phosphatase 104 U/L (38-126); Aspartate Amino Transferase 50 U/L (14-36); Bilirubin,Direct 0.4 mg/dl (0.0-0.4); Bilirubin,Total 0.4 mg/dl (0.2-1.3); Total Protein,Serum 7.8 g/dl (6.3-8.2)
[2020-07-17 19:51] LABS: Blood Urea Nitrogen 10 mg/dl (7-17); Calcium 9.5 mg/dl (8.4-10.2)
--- NOTE | 2020-07-17 20:04 | PC.NURSE ---
paged dr huerta
--- NOTE | 2020-07-17 20:07 | PC.NURSE ---
called house for bed assignment.
--- NOTE | 2020-07-17 23:11 | PC.NURSE ---
patient up to floor via wheelchair.
[2020-07-18 04:00] VITALS: BP 125/70; PULSE 64; RESP 16; TEMP 36.6; O2SAT 97
[2020-07-18 05:22] VITALS: BMI 33.7
--- NOTE | 2020-07-18 05:40 | PC.NURSE ---
A&OX4. PT TOLERATING RA WELL. PT HAS C/O INTERMITTENT ABD PAIN, MOSTLY TO UPPER QUADS. TX WITH PRN PAIN MED-ON REASSESSMENT, PT RESTING IN BED. PT REMAINS NPO. RESTING IN BED MAJORITY OF SHIFT. VSS WILL CONTINUE TO MONITOR.
[2020-07-18 07:40] VITALS: BP 104/62; PULSE 55; RESP 16; TEMP 36.8; O2SAT 99
--- NOTE | 2020-07-18 08:10 | HMH.PHAVTE ---
[facility] Pharmacy VTE Monitoring - Patient Demographics Admission date: 07/18/20 Report Date: 07/18/20 Time: 08:10 Allergies/Adverse Reactions: Patient Allergies tramadol Allergy (Verified 07/17/20 23:27) Height: 1.65 m Weight: 91.852 kg Patient Problems: Current Active Problems Abdominal pain (Acute) - VTE Risk Labs: VTE Related Lab Results Hgb 13.8 g/dL (12.2-16.2) 07/17/20 17:49 Hct 40.5 % (37.0-47.0) 07/17/20 17:49 Plt Count 263 K/mm3 (142-424) D 07/17/20 17:49 BUN 10 mg/dl (7-17) D 07/17/20 17:49 Creatinine 0.50 mg/dl (0.52-1.04) L 07/17/20 17:49 Estimated Creat Clear 229 mL/min (50-200) 07/17/20 17:49 Was VTE Risk Assessment Performed: Yes VTE Score: 0 VTE Risk Level: Very Low Risk Clinical Trial Participant: No - Prophylaxis VTE Prophylaxis Ordered?: Yes Types of VTE Prophylaxis: TEDS Knee High
[2020-07-18 08:52] LABS: Alanine Aminotransferase 48 U/L (12-78); Albumin/Globulin Ratio 1.5 (1.1-1.8); Alkaline Phosphatase 86 U/L (38-126); Amylase 68 U/L (30-110); Anion Gap 6.6 mEq/L (5-15); Aspartate Amino Transferase 32 U/L (14-36); Bilirubin,Total 0.5 mg/dl (0.2-1.3); Blood Urea Nitrogen 6 mg/dl (7-17); Carbon Dioxide 29 mmol/L (22.0-30.0); Chloride 106 mmol/L (98-107); Creatinine Clearance Estimated 193 mL/min (50-200); Estimated Glomerular Filt Rate 115 ml/min (>60); GFR (African American) 139 ML/MIN (>60); Globulin 2.7 g/dL (1.3-3.2); Glucose 88 mg/dl (74-100); Potassium 3.6 mmoL/L (3.5-5.1); Sodium 138 mmol/L (136-145); Total Protein,Serum 6.7 g/dl (6.3-8.2)
[2020-07-18 08:53] LABS: Alanine Aminotransferase 48 U/L (12-78); Albumin Level 3.9 g/dl (3.5-5.0); Alkaline Phosphatase 84 U/L (38-126); Aspartate Amino Transferase 30 U/L (14-36); Bilirubin,Direct 0.3 mg/dl (0.0-0.4); Bilirubin,Indirect 0.2 mg/dL (0.0-0.9); Bilirubin,Total 0.5 mg/dl (0.2-1.3); Bilirubin,Unconjugated 0.2 mg/dL (0.0-1.1); Total Protein,Serum 6.6 g/dl (6.3-8.2)
[2020-07-18 08:55] LABS: Calcium 8.4 mg/dl (8.4-10.2)
--- NOTE | 2020-07-18 08:55 | HMH.HP ---
*Admission Date: 07/18/20 *Chief complaint: Abdominal Pain *History of present illness: Discharged 2 days ago after a stay for pancreatitis. She had an ERCP and was found to have a biliary stone. She says that she asked Dr. Mckinley to send her home on Thursday, 2 days ago, but now is having increased nausea and increased pain. Her pain is the same in location as previously, it is just worse again. She contacted Dr. Escobar and says that she was told to come to the emergency room to have her lipase checked, get IV fluids, pain medication, and nausea medication. No fever. White blood cell count 10.4, H/H 13.8 and 40.5 Electrolytes unremarkable Amylase 147 lipase 78 UA negative [facility] History I have reviewed the patient's past medical history: Yes Medical History: Reports:: Anxiety, Hyperlipidemia Denies:: Cancer, Diabetes Mellitus Type 1, Diabetes Mellitus Type 2, MRSA, Seizures, Urinary Tract Infection *Have you ever received a pneumonia vaccine?: Yes *Have you received a flu vaccine this season?: Yes Other Medical History: Reports: Fibromyalgia. Denies: Thyroid Disease Other Surgeries: Yes: Cholecystectomy, Dilation and Curettage. No: Amputation: No Fractures: No - *Social History Last grade of school completed: Some college Smoking Status: Current every day smoker Tobacco Type: cigarettes # Packs/Day (cigarettes): 1 Alcohol Intake: never Alcohol Intake Frequency:: 0-2 drinks per day Substance Use Type: marijuana *Occupational Status:: unemployed Housing: house Household Members: children *Travel in the last 8 weeks: None - Psychiatric History Pschychiatric History:: Reports:: Anxiety Family Hx:: Heart Attack, Hyperlipidemia, Alcoholism, Mental illness Review of Systems - Review of Systems Review of systems:: pertinent systems reviewed and negative unless documented below - Constitutional Reports weakness, Denies body ache(s) - Eyes Denies blurry vision, Denies double vision - ENT Denies difficulty swallowing, Denies ear pain - *Cardiovascular Denies chest pain, Denies shortness of breath - *Respiratory Denies chest congestion, Denies cough - *Gastrointestinal Reports abdominal pain, Reports cramping, Reports heartburn - *Musculoskeletal Denies abnormal walking, Denies back pain - Integumentary/Breasts Denies hair loss, Denies lesions - *Neurologic Denies abnormal walking, Denies unsteadiness - Psychiatric Denies behavioral changes, Denies change in appetite - Endocrine Denies cold intolerance, Denies heat intolerance - Hematologic/Lymphatic Denies easy bleeding, Denies enlarged lymph nodes - Allergic/Immunologic Denies throat swelling, Denies tongue swelling Meds Home Medications Medication Instructions Recorded Confirmed Type methocarbamol 500 mg tablet 500 mg PO TIDP PRN tab 05/09/20 07/18/20 History pregabalin 200 mg capsule 200 mg PO BID cap 05/09/20 07/17/20 History venlafaxine 150 mg 150 mg PO DAILY cap 05/09/20 07/17/20 History capsule,extended release 24 hr Buspirone HCl [Buspirone 15 mg 15 mg PO TID 06/23/20 07/17/20 History Tablets] Lurasidone HCl [Latuda] 40 mg PO HS 06/23/20 07/17/20 History cloNIDine HCL [cloNIDine 0.1mg 0.1 mg PO BIDP 06/23/20 07/17/20 History Tablet] ondansetron HCL [Zofran 4mg Tab] 4 mg PO TID PRN 07/17/20 07/17/20 History Allergies Allergy/AdvReac Type Severity Reaction Status Date / Time tramadol Allergy Verified 07/17/20 23:27 Exam Vital signs and Labs for Last 24 Hours: Temp Pulse Resp BP Pulse Ox 98.3 F 55 L 16 104/62 L 99 07/18/20 07:40 07/18/20 07:40 07/18/20 07:40 07/18/20 07:40 07/18/20 07:40 Laboratory Results - last 24 hr 07/17/20 17:30: Urine Color Yellow, Urine Appearance Clear, Urine pH 7.0, Ur Specific [place] 1.010, Urine Protein Negative, Urine Glucose (UA) Negative, Urine Ketones Negative, Urine Blood Negative, Urine Nitrate Nega
[2020-07-18 09:01] LABS: Basophils # 0.1 K/mm3 (0-0.2); Eosinophils % 0.5 % (0.1-12.0); Hematocrit 30.8 % (37.0-47.0); Hemoglobin 10.1 g/dL (12.2-16.2); Lymphocytes # 3.3 K/mm3 (0.7-4.5); Lymphocytes % 43.5 % (10-50); Mean Corpuscular HGB Conc 32.7 g/dL (31.8-35.4); Mean Corpuscular Hemoglobin 29.5 pg (27.0-31.2); Mean Corpuscular Volume 90.2 fl (81-99); Mean Platelet Volume 9.1 fl (7.4-10.4); Monocytes # 0.3 K/mm3 (0.1-1.0); Neutrophils # 3.8 K/mm3 (1.8-7.8); Neutrophils % 50.9 % (37.0-80.0); Platelet Count 209 K/mm3 (142-424); Red Blood Count 3.41 M/mm3 (4.20-5.40); White Blood Count 7.5 K/mm3 (4.8-10.8)
[2020-07-18 09:59] LABS: Lipase 71 U/L (23-300)
--- NOTE | 2020-07-18 10:25 | HMH.PHAINT ---
VERIFIED HOME MEDICATION LIST USING LISTS FROM [facility] AND PREVIOUS DISCHARGE.
[2020-07-18 15:11] VITALS: BP 122/82; PULSE 67; RESP 16; TEMP 36.7; O2SAT 100
--- NOTE | 2020-07-18 15:11 | PC.NURSE ---
PT IS RESTING IN BED. PT HAS REQUESTED PAIN AND NAUSEA MEDICATION T/O THE SHIFT. PT HAS BEEN SIPPING ON CLEAR LIQUIDS. AMBULATED TO THE BATHROOM. PT STATES HER LAST BOWEL MOVEMENT WAS YESTERDAY. ABDOMEN SOFT WITH TENDERNESS IN THE UPPER QUADS. HYPOACTIVE BOWEL SOUNDS. SCATTERED BRUISING NOTED TO BUE. VSS. WILL CONTINUE TO MONITOR.
[2020-07-18 20:00] VITALS: BP 144/94; PULSE 71; RESP 16; TEMP 37.1; O2SAT 100; O2SAT 99
[2020-07-18 21:43] VITALS: RESP 18
[2020-07-19 03:46] VITALS: RESP 18
[2020-07-19 04:00] VITALS: BP 113/79; PULSE 61; RESP 16; TEMP 36.6; O2SAT 98
--- NOTE | 2020-07-19 05:14 | PC.NURSE ---
vss. a&o. pt educated on clear liquid diet, pt verbalized understanding. pt has been compliant and calm throughout shift. all patient requests met in a timely manner. will continue to monitor.
[2020-07-19 06:00] VITALS: BMI 34.0
[2020-07-19 07:24] LABS: Basophils # 0.1 K/mm3 (0-0.2); Monocytes # 0.3 K/mm3 (0.1-1.0)
[2020-07-19 07:41] VITALS: BP 109/67; PULSE 56; RESP 18; TEMP 36.3; O2SAT 96
[2020-07-19 07:51] LABS: Basophils % 1.3 % (0.1-2.0); Eosinophils % 0.1 % (0.1-12.0); Lymphocytes # 2.4 K/mm3 (0.7-4.5); Lymphocytes % 44.3 % (10-50); Mean Corpuscular HGB Conc 33.1 g/dL (31.8-35.4); Mean Corpuscular Volume 90.5 fl (81-99); Monocytes % 5.7 % (1.7-9.3); Neutrophils # 2.7 K/mm3 (1.8-7.8); Neutrophils % 48.7 % (37.0-80.0); Platelet Count 185 K/mm3 (142-424); Red Blood Count 4.42 M/mm3 (4.20-5.40); Red Cell Distribution Width 13.8 % (11.5-17.5); White Blood Count 5.5 K/mm3 (4.8-10.8)
[2020-07-19 07:52] LABS: Hemoglobin 13.3 g/dL (12.2-16.2)
[2020-07-19 07:55] LABS: Amylase 140 U/L (30-110); Anion Gap 5.8 mEq/L (5-15); Blood Urea Nitrogen 4 mg/dl (7-17); Calcium 8.4 mg/dl (8.4-10.2); Carbon Dioxide 28 mmol/L (22.0-30.0); Chloride 106 mmol/L (98-107); Creatinine Clearance Estimated 234 mL/min (50-200); Estimated Glomerular Filt Rate 142 ml/min (>60); GFR (African American) 172 ML/MIN (>60); Glucose 87 mg/dl (74-100); Potassium 3.8 mmoL/L (3.5-5.1); Sodium 136 mmol/L (136-145)
[2020-07-19 08:00] VITALS: PULSE 56; O2SAT 96
[2020-07-19 08:10] LABS: Lipase 899 U/L (23-300)
--- NOTE | 2020-07-19 09:37 | PC.NURSE ---
notified Bibiana Stewart of Lipase of [phone] during am rounds [id number]
--- NOTE | 2020-07-19 10:55 | PC.NURSE ---
pt requested pain meds at 1030. upon scanning for admin, order stated that med order was to begin at 1200 this day. pt notified. ok with waiting until 1200 for pain meds.
--- NOTE | 2020-07-19 14:05 | HMH.PMCON ---
Assessment and Plan (1) Abdominal pain Status: Acute Qualifiers: Abdominal location: upper abdomen, unspecified Qualified Code(s): R10.10 - Upper abdominal pain, unspecified Category: Medical Code(s): R10.9 - Unspecified abdominal pain (2) Obesity (BMI 30-39.9) Status: Acute Category: Medical Code(s): E66.9 - Obesity, unspecified (3) Tobacco use Status: Acute Category: Social Hx Code(s): Z72.0 - Tobacco use (4) Left upper quadrant pain Status: Acute Category: Medical Code(s): R10.12 - Left upper quadrant pain (5) Pancreatitis Status: Acute Category: Medical Code(s): K85.90 - Acute pancreatitis without necrosis or infection, unspecified - Assessment and plan all Dx Assessment and Plan for all problems:: We will schedule the patient for a follow-up appointment in the clinic after she is discharged. We did discuss possible intrathecal therapy for long-term pain management with her flareups of pancreatitis. We will discuss a further plan of care at that time. Dr. Castellon has reviewed this note and agrees with this plan of care. This note was dictated using voice recognition software and make contain errors or omissions. HPI - Data of Consult Patient: new to practice Consult date: 07/19/20 Requesting Physician: Elmo Escobar MD Primary Care Provider: London Mason MD - Consult Narrative Reason for consult: Upper quadrant pain History of present illness: Ms. Mcnally is a 34 year old female who is currently hospitalized for pancreatitis. Patient says that she has had flareups over the last year. She has had multiple visits to the emergency room for frequent pain to her left upper quadrant. She has been to other hospitals for which they could not determine her cause of pain. She says hospitalized at [facility], she did undergo a ERCP which noted the patient to have pancreatitis and a blocked stone. She says that her pain waxes and wanes. She rates her pain an 8 or 9 out of 10 today. She is very tearful. She says that she was given Dilaudid while in patient, however, they have since changed her to oral medications. She is now taking Percocet for which she says is not giving her relief. She says the pain is radiating into her left flank and left back. CC: Elmo Escobar MD [facility] History I have reviewed the patient's past medical history: Yes Medical History: Reports:: Anxiety, Hyperlipidemia Denies:: Cancer, Diabetes Mellitus Type 1, Diabetes Mellitus Type 2, MRSA, Seizures, Urinary Tract Infection *Have you ever received a pneumonia vaccine?: Yes *Have you received a flu vaccine this season?: Yes Other Medical History: Reports: Fibromyalgia. Denies: Thyroid Disease Other Surgeries: Yes: Cholecystectomy, Dilation and Curettage. No: Amputation: No Fractures: No - *Social History Last grade of school completed: Some college Smoking Status: Current every day smoker Tobacco Type: cigarettes # Packs/Day (cigarettes): 1 Alcohol Intake: never Alcohol Intake Frequency:: 0-2 drinks per day Substance Use Type: marijuana *Occupational Status:: unemployed Housing: house Household Members: children *Travel in the last 8 weeks: None - Psychiatric History Pschychiatric History:: Reports:: Anxiety Family Hx:: Heart Attack, Hyperlipidemia, Alcoholism, Mental illness Review of Systems - Review of Systems Review of Systems General: No recent weight changes, no fever, no sleep disturbances Respiratory: No cough, no shortness of air, no recurring pulmonary infections Cardiovascular/peripheral vascular: No chest pain, no palpitations, no edema, no shortness of breath Gastrointestinal: No new onset incontinence, normal bowel movements reported, left upper quadrant pain Genitourinary: No new onset incontinence Musculoskeletal: [] Psychiatric: Normal mood/affect Neurological: [Denies weakness in extremities], [denies balance issues] - *Neurologic Repor
[2020-07-19 15:22] VITALS: BP 121/72; PULSE 58; RESP 18; TEMP 36.7; O2SAT 100
--- NOTE | 2020-07-19 18:39 | HMH.ACPN2 ---
Internal Medicine - PN: Subj *Date: 07/19/20 *Time: 08:00 Interval history: pt states she is afraid of having pain. Exam Vital signs and Labs for Last 24 Hours: Temp Pulse Resp BP Pulse Ox 98.0 F 58 L 18 121/72 100 07/19/20 15:22 07/19/20 15:22 07/19/20 15:22 07/19/20 15:22 07/19/20 15:22 Laboratory Results - last 24 hr 07/19/20 06:55: WBC 5.5 D, RBC 4.42 D, Hgb 13.3 D, Hct 40.0, MCV 90.5, MCH 30.0, MCHC 33.1, RDW 13.8, Plt Count 185, MPV 9.0, Neut % (Auto) 48.7, Lymph % (Auto) 44.3, [place] % (Auto) 5.7, Eos % (Auto) 0.1, Baso % (Auto) 1.3, Neut # (Auto) 2.7, Lymph # (Auto) 2.4, [place] # (Auto) 0.3, Eos # (Auto) 0.0, Baso # (Auto) 0.1 07/19/20 06:55: Sodium 136, Potassium 3.8, Chloride 106, Carbon Dioxide 28, Anion Gap 5.8, BUN 4 L D, Creatinine 0.50 L, Estimated Creat Clear 234, Estimated GFR 142, Est GFR ( Amer) 172 D, Glucose 87, Calcium 8.4, Amylase 140 H D, Lipase 899 H I & O for Last 24 hours: Intake & Output 07/17/20 07/18/20 07/19/20 07/20/20 11:59 11:59 11:59 11:59 Intake Total 240 / 240 2125 840 / 840 Balance 240 / 240 2125 840 / 840 Weight 202 lb 8 oz 204 lb 3 oz - Constitutional no acute distress - *Routine HEENT Exam Head: Present: normocephalic Eye: Present: PERRL ENT: Present: mucous membranes moist - *Routine Neck Exam Present: supple. Absent: lymphadenopathy - *Routine Respiratory Exam Present: CTA bilaterally - *Routine Cardiovascular Exam Present: RRR - *Routine Abdominal Exam Present: soft, normoactive bowel sounds, tenderness - *Routine Extremities Exam Absent: cyanosis, clubbing, edema - *Routine Skin Exam Present: warm. Absent: rash - *Routine Neurological Exam Present: alert, oriented X3 - Routine Psychiatric Exam Present: normal affect Assessment and Plan (1) Abdominal pain Status: Acute Qualifiers: Abdominal location: upper abdomen, unspecified Qualified Code(s): R10.10 - Upper abdominal pain, unspecified Category: Medical Code(s): R10.9 - Unspecified abdominal pain (2) Obesity (BMI 30-39.9) Status: Acute Category: Medical Code(s): E66.9 - Obesity, unspecified (3) Tobacco use Status: Acute Category: Social Hx Code(s): Z72.0 - Tobacco use (4) Left upper quadrant pain Status: Acute Category: Medical Code(s): R10.12 - Left upper quadrant pain (5) Pancreatitis Status: Acute Category: Medical Code(s): K85.90 - Acute pancreatitis without necrosis or infection, unspecified - Assessment and plan all Dx Assessment and Plan for all problems:: rounded with dr huerta all orders per dr huerta change pain meds to oral pain management consult
--- NOTE | 2020-07-19 18:43 | PC.NURSE ---
pt has had variations in her mood this shift. pt is friendly with nursing staff, will laugh and be jovial with staff. then will say she is hurting and have a flat affect, rates pain 7-9. pt will not call out for pain meds, but when rounds are made pt will be visibly crying. bp within normal limits. pt was offered heating pad this am, and refused states it wouldnt help. states dilaudid helps. request made to Dr Escobar through [facility] for additional meds. no new meds given. lungs are clear, bowel sounds are active in all quads.
[2020-07-19 20:00] VITALS: BP 122/74; PULSE 63; RESP 17; TEMP 36.6; O2SAT 99
[2020-07-20 02:37] VITALS: RESP 16
--- NOTE | 2020-07-20 03:50 | PC.NURSE ---
VSS. A&O. at approximately 2000 patient complained of severe pain not relieved by prescribed pain medication. patient was visibly crying and stated This is the worse pain of my life . RN spoke with MD Elías to receive a PO hydromorphone order. nurse administered medication as prescribed. pt was cheerful and relieved from pain at approximately 2100. no acute changes throughout shift. will continue to monitor.
[2020-07-20 04:00] VITALS: BP 109/72; PULSE 49; RESP 16; TEMP 36.5; O2SAT 99
[2020-07-20 05:07] VITALS: BMI 34.0
[2020-07-20 07:17] LABS: Basophils # 0.1 K/mm3 (0-0.2); Basophils % 1.3 % (0.1-2.0); Eosinophils % 0.3 % (0.1-12.0); Hemoglobin 12.9 g/dL (12.2-16.2); Lymphocytes # 3.3 K/mm3 (0.7-4.5); Lymphocytes % 49.5 % (10-50); Mean Corpuscular Hemoglobin 30.4 pg (27.0-31.2); Mean Corpuscular Volume 92.1 fl (81-99); Monocytes # 0.3 K/mm3 (0.1-1.0); Monocytes % 4.4 % (1.7-9.3); Neutrophils % 44.6 % (37.0-80.0); Platelet Count 198 K/mm3 (142-424); Red Blood Count 4.23 M/mm3 (4.20-5.40); Red Cell Distribution Width 13.5 % (11.5-17.5); White Blood Count 6.7 K/mm3 (4.8-10.8)
[2020-07-20 07:28] LABS: Blood Urea Nitrogen 3 mg/dl (7-17); Calcium 8.4 mg/dl (8.4-10.2); Carbon Dioxide 28 mmol/L (22.0-30.0); Chloride 106 mmol/L (98-107); Creatinine Clearance Estimated 195 mL/min (50-200); Estimated Glomerular Filt Rate 115 ml/min (>60); GFR (African American) 139 ML/MIN (>60); Glucose 100 mg/dl (74-100); Lipase 301 U/L (23-300); Sodium 138 mmol/L (136-145)
[2020-07-20 07:35] VITALS: BP 116/86; PULSE 46; RESP 16; TEMP 36.9; O2SAT 99
--- NOTE | 2020-07-20 09:08 | HMH.DCSUM ---
General - General Admission date:: 07/17/20 Discharge date: 07/20/20 HPI HPI: Discharged 2 days ago after a stay for pancreatitis. She had an ERCP and was found to have a biliary stone. She says that she asked Dr. Mckinley to send her home on Thursday, 2 days ago, but now is having increased nausea and increased pain. Her pain is the same in location as previously, it is just worse again. She contacted Dr. Escobar and says that she was told to come to the emergency room to have her lipase checked, get IV fluids, pain medication, and nausea medication. No fever. White blood cell count 10.4, H/H 13.8 and 40.5 Electrolytes unremarkable Amylase 147 lipase 78 UA negative Hospital Course Hospital Course: Laboratory Tests 07/17/20 07/17/20 07/17/20 17:30 17:30 17:49 WBC 10.4 D RBC 4.58 Hgb 13.8 Hct 40.5 MCV 88.5 MCH 30.1 MCHC 34.0 RDW 13.8 Plt Count 263 D MPV 8.8 Neut % (Auto) 67.9 Lymph % (Auto) 26.1 [place] % (Auto) 4.5 Eos % (Auto) 0.7 Baso % (Auto) 0.8 Neut # (Auto) 7.1 Lymph # (Auto) 2.7 [place] # (Auto) 0.5 Eos # (Auto) 0.1 Baso # (Auto) 0.1 Sodium Potassium Chloride Carbon Dioxide Anion Gap BUN Creatinine Estimated Creat Clear Estimated GFR Est GFR ( Amer) Glucose Calcium Total Bilirubin Direct Bilirubin Conjugated Bilirubin Indirect Bilirubin Unconjugated Bilirubin AST ALT Alkaline Phosphatase Total Protein Albumin Globulin Albumin/Globulin Ratio Amylase Lipase Urine Color Yellow Urine Appearance Clear Urine pH 7.0 Ur Specific [place] 1.010 Urine Protein Negative Urine Glucose (UA) Negative Urine Ketones Negative Urine Blood Negative Urine Nitrate Negative Urine Bilirubin Negative Urine Urobilinogen 0.2 Ur Leukocyte Esterase Negative Urine RBC 3-5 Urine WBC 3-5 Ur Squamous Epith Cells 3-5 Urine Bacteria Trace Urine HCG, Qual Negative 07/17/20 07/17/20 07/17/20 17:49 17:49 17:49 WBC RBC Hgb Hct MCV MCH MCHC RDW Plt Count MPV Neut % (Auto) Lymph % (Auto) [place] % (Auto) Eos % (Auto) Baso % (Auto) Neut # (Auto) Lymph # (Auto) [place] # (Auto) Eos # (Auto) Baso # (Auto) Sodium 134 L Potassium 4.4 Chloride 100 Carbon Dioxide 23 Anion Gap 15.4 H BUN 10 D Creatinine 0.50 L Estimated Creat Clear 229 Estimated GFR 142 Est GFR ( Amer) 172 Glucose 99 Calcium 9.5 D Total Bilirubin 0.4 Direct Bilirubin 0.4 Conjugated Bilirubin 0.0 Indirect Bilirubin 0.0 Unconjugated Bilirubin 0.0 AST 50 H D ALT 61 Alkaline Phosphatase 104 Total Protein 7.8 D Albumin 4.7 Globulin Albumin/Globulin Ratio Amylase 147 H Lipase 78 Urine Color Urine Appearance Urine pH Ur Specific [place] Urine Protein Urine Glucose (UA) Urine Ketones Urine Blood Urine Nitrate Urine Bilirubin Urine Urobilinogen Ur Leukocyte Esterase Urine RBC Urine WBC Ur Squamous Epith Cells Urine Bacteria Urine HCG, Qual 07/18/20 07/18/20 07/18/20 08:35 08:35 08:35 WBC 7.5 D RBC 3.41 L D Hgb 10.1 L D Hct 30.8 L MCV 90.2 MCH 29.5 MCHC 32.7 RDW 14.0 Plt Count 209 MPV 9.1 Neut % (Auto) 50.9 Lymph % (Auto) 43.5 [place] % (Auto) 4.0 Eos % (Auto) 0.5 Baso % (Auto) 1.0 Neut # (Auto) 3.8 Lymph # (Auto) 3.3 [place] # (Auto) 0.3 Eos # (Auto) 0.0 Baso # (Auto) 0.1 Sodium 138 Potassium 3.6 Chloride 106 Carbon Dioxide 29 D Anion Gap 6.6 BUN 6 L D Creatinine 0.60 Estimated Creat Clear 193 Estimated GFR 115 Est GFR ( Amer) 139 Glucose 88 Calcium 8.4 D Total Bilirubin
--- NOTE | 2020-07-20 10:18 | DIET.NUTRFU ---
Pt has tolerated clear liquid diet well. Bowels normal, weight stable, lipase slightly over WNL. She has been provided with diet edu/counseling for clear liquid diet at home and how to slowly advance as tolerated to return to her low fat diet. Pt encouraged to reach out with any questions/concerns.
--- NOTE | 2020-07-20 10:55 | PC.NURSE ---
0579 - Called Dr. Mckinley's office about pain medication as the DC note state she will be going home w/ pain RX but one was not placed. Spoke w/ Dr. Mckinley who states he will take care of this and will be sending a scrip from office to pt's pharmacy. 1003 - Verified w/ Eloina in Dr. Mckinley's office who states pt will be sent RX for Dilaudid 2mg PO TIDP for pain. PT verbalized understanding. DC paperwork reviewed w/ patient and pt was made aware of follow-up appointments w/ Frida and Dr. Castellon. IV in L Hand DC'd. Pt left floor for home @ [id number]
== END 2020-07-20 10:58 | disposition home or self-care (01) ==
LOC: ER 20:08 → 2ND 20:14
PROVIDERS: Nurse Practitioner Family; Admitting Provider Family Medicine; Emergency Provider Emergency Medicine; PCP Family Medicine; Visit Provider Family Medicine
DX: R10.12 Left upper quadrant pain (principal); K85.90 Acute pancreatitis without necrosis or infection, unspecified; F17.210 Nicotine dependence, cigarettes, uncomplicated
CPT/HCPCS: 36415; 80048; 80053; 80076; 81001; 81025; 82150; 83690; 85025; 96365; 96375; 96376; 99284; G0378; J2405; U0003

== ENCOUNTER 2020-07-23 02:45 | Emergency (ER) | payer BC, SELFPAY ==
[2020-07-23 03:10] VITALS: BP 139/84; PULSE 86; RESP 14; TEMP 36.6; O2SAT 100; BMI 34.1
[2020-07-23 03:31] LABS: Microscopic, Urine URINE MICROSCOPIC (MICROSCOPIC)
--- NOTE | 2020-07-23 03:31 | CT_ITS ---
PROCEDURE INFORMATION: Exam: CT Abdomen And Pelvis With Contrast Exam date and time: 07/23/2020 3:31 AM Age: 34 years old Clinical indication: Nausea and vomiting and other: Abd bruise; Patient HX: Abd bruise with n/v, PT says she has pancreatitis; Additional info: Abdominal pain TECHNIQUE: Imaging protocol: Computed tomography of the abdomen and pelvis with contrast. Radiation optimization: All CT scans at this facility use at least one of these dose optimization techniques: automated exposure control; mA and/or kV adjustment per patient size (includes targeted exams where dose is matched to clinical indication); or iterative reconstruction. Contrast material: ISOVUE; Contrast volume: 60 ml; Contrast route: IV; COMPARISON: CT ABDOMEN PELVIS W CON 07/10/2020 11:02 PM FINDINGS: Liver: Normal. No mass. Gallbladder and bile ducts: Prior cholecystectomy. Pancreas: Normal. No ductal dilation. Spleen: Normal. No splenomegaly. Adrenal glands: Normal. No mass. Kidneys and ureters: Normal. No hydronephrosis. Stomach and bowel: Mild diverticulosis is present in the sigmoid and descending colon. Appendix: No evidence of appendicitis. Intraperitoneal space: Unremarkable. No free air. No significant fluid collection. Vasculature: Unremarkable. No abdominal aortic aneurysm. Lymph nodes: Unremarkable. No enlarged lymph nodes. Urinary bladder: Unremarkable as visualized. Reproductive: Unremarkable as visualized. Bones/joints: Unremarkable. No acute fracture. Soft tissues: Subcutaneous soft tissue swelling along the anterior abdominal wall is seen with mild overlying skin thickening. No focal fluid collections or dominant mass lesions are seen. Left breast nodule is stable in appearance. Other findings: Patient motion makes evaluation difficult. IMPRESSION: No evidence of a new intra-abdominal or pelvic process. Stomach and small bowel as visualized was unremarkable.
[2020-07-23 03:36] LABS: Appearance,Urine SL CLOUDY (Clear); Bilirubin,Urine Negative (Negative); Blood, Urine Negative (Negative); Color,Urine YELLOW (Yellow); Glucose,Urine (UA) Negative (Negative); Ketones,Urine Negative (Negative); Leukocyte Esterase,Urine Negative (Negative); Nitrate,Urine Negative (Negative); Protein,Urine Negative (Negative); Specific Gravity, Urine <= 1.005 (1.005-1.030); Urobilinogen,Urine 0.2 EU/dl (0.2)
[2020-07-23 03:38] LABS: Urine Pregnancy, HCG Qual. Negative (Negative)
[2020-07-23 03:49] LABS: Basophils # 0.1 K/mm3 (0-0.2); Basophils % 1.1 % (0.1-2.0); Eosinophils % 0.3 % (0.1-12.0); Hematocrit 40.1 % (37.0-47.0); Lymphocytes # 2.4 K/mm3 (0.7-4.5); Lymphocytes % 28.3 % (10-50); Mean Corpuscular HGB Conc 32.5 g/dL (31.8-35.4); Mean Corpuscular Hemoglobin 30.3 pg (27.0-31.2); Mean Corpuscular Volume 93.3 fl (81-99); Mean Platelet Volume 8.2 fl (7.4-10.4); Monocytes # 0.4 K/mm3 (0.1-1.0); Monocytes % 4.9 % (1.7-9.3); Neutrophils # 5.5 K/mm3 (1.8-7.8); Neutrophils % 65.5 % (37.0-80.0); Platelet Count 209 K/mm3 (142-424); Red Cell Distribution Width 13.7 % (11.5-17.5); White Blood Count 8.3 K/mm3 (4.8-10.8)
[2020-07-23 03:53] LABS: Bacteria,Urine Trace /lpf; Squamous Epithelial Cell,Urine Occasional #/hpf (0-5)
[2020-07-23 03:54] LABS: Alanine Aminotransferase 73 U/L (12-78); Anion Gap 7.1 mEq/L (5-15); Aspartate Amino Transferase 73 U/L (14-36); Bilirubin,Total 0.4 mg/dl (0.2-1.3); Blood Urea Nitrogen 3 mg/dl (7-17); Calcium 8.4 mg/dl (8.4-10.2); Carbon Dioxide 29 mmol/L (22.0-30.0); Chloride 105 mmol/L (98-107); Creatinine Clearance Estimated 196 mL/min (50-200); Estimated Glomerular Filt Rate 115 ml/min (>60); GFR (African American) 139 ML/MIN (>60); Glucose 81 mg/dl (74-100); Potassium 4.1 mmoL/L (3.5-5.1); Sodium 137 mmol/L (136-145); Total Protein,Serum 6.7 g/dl (6.3-8.2)
[2020-07-23 03:55] LABS: Albumin Level 4.1 g/dl (3.5-5.0); Albumin/Globulin Ratio 1.6 (1.1-1.8); Alkaline Phosphatase 78 U/L (38-126); Amylase 127 U/L (30-110); Globulin 2.6 g/dL (1.3-3.2); Lipase 293 U/L (23-300)
--- NOTE | 2020-07-23 04:44 | HMH.EDABDPAI ---
ED Disposition Clinical Impression: Diverticulosis, Chronic abdominal pain Disposition: Home, Self-Care Condition on Discharge: Good Instructions: DI for Acute Abdominal Pain Additional Instructions: Continue using your home medications for pain and nausea and follow-up with your primary care within 2 to 3 days for reevaluation of your chronic pain. Referrals: London Mason MD [Primary Care Provider] - Time of Disposition: 05:27 - Critical Care Critical Care Time: No Attestation: On 07/23/20, the high probability of a clinically significant, sudden or life threatening deterioration of the following system(s) required my full and direct attention, intervention and personal management. The time I documented below is in addition to time spent performing reported procedures but includes the following listed in this critical care notation. Medical Decision Making - Medical Records Medical records reviewed: Yes: I reviewed the patient's medical records. - Ramses Inquiry Pt receiving controlled substance: No Vital Signs: 07/23/20 03:10 Temperature 97.8 F Temperature Source Oral Pulse Rate [Right] 86 Respiratory Rate 14 Blood Pressure [Right Arm] 139/84 Blood Pressure Mean [Right Arm] 102 Blood Pressure Source [Right Arm] Automatic Cuff Blood Pressure Position [Right Arm] Sitting 02 Sat by Pulse Oximetry 100 Oxygen Delivery Method Room Air - Lab Data Lab Results 07/23/20 03:00: Urine Color Yellow, Urine Appearance Sl cloudy, Urine pH 6.0, Ur Specific [place] <= 1.005, Urine Protein Negative, Urine Glucose (UA) Negative, Urine Ketones Negative, Urine Blood Negative, Urine Nitrate Negative, Urine Bilirubin Negative, Urine Urobilinogen 0.2, Ur Leukocyte Esterase Negative, Ur Squamous Epith Cells Occasional, Urine Bacteria Trace 07/23/20 03:00: Urine HCG, Qual Negative 07/23/20 03:40: WBC 8.3, RBC 4.30, Hgb 13.0, Hct 40.1, MCV 93.3, MCH 30.3, MCHC 32.5, RDW 13.7, Plt Count 209, MPV 8.2, Neut % (Auto) 65.5, Lymph % (Auto) 28.3, [place] % (Auto) 4.9, Eos % (Auto) 0.3, Baso % (Auto) 1.1, Neut # (Auto) 5.5, Lymph # (Auto) 2.4, [place] # (Auto) 0.4, Eos # (Auto) 0.0, Baso # (Auto) 0.1 07/23/20 03:40: Sodium 137, Potassium 4.1, Chloride 105, Carbon Dioxide 29, Anion Gap 7.1, BUN 3 L, Creatinine 0.60, Estimated Creat Clear 196, Estimated GFR 115, Est GFR ( Amer) 139, Glucose 81, Calcium 8.4, Total Bilirubin 0.4, AST 73 H, ALT 73, Alkaline Phosphatase 78, Total Protein 6.7, Albumin 4.1, Globulin 2.6, Albumin/Globulin Ratio 1.6, Amylase 127 H, Lipase 293 Result diagrams: 07/23/20 03:40 07/23/20 03:40 Orders (Tests/Meds): ED MEDICATIONS Generic Name Dose Route Start Last Admin Trade Name Freq PRN Reason Stop Dose Admin Sodium Chloride 1,000 mls @ 999 mls/hr 07/23/20 03:45 07/23/20 03:47 Sod Chlor 0.9% 1000ml Bag IV 07/23/20 04:45 999 mls/hr .Q1H1M INO Administration Morphine Sulfate 4 mg 07/23/20 03:32 07/23/20 03:47 Morphine 4mg/Ml Syringe IV 08/22/20 03:31 4 mg Q4HP PRN Administration Mild to Moderate Pain Discontinued Medications Generic Name Dose Route Start Last Admin Trade Name Freq PRN Reason Stop Dose Admin Diphenhydramine HCl 25 mg 07/23/20 03:33 07/23/20 03:46 Diphenhydramine 50mg/Ml Vial IV 07/23/20 03:34 25 mg ONCE ONE Administration Iopamidol 60 ml 07/23/20 04:50 07/23/20 04:51 Iopamidol-370 (76%);100ml Bottle IV 07/23/20 04:51 60 ml ONCE ONE Administration Metoclopramide HCl 10 mg 07/23/20 03:33 07/23/20 03:46 Metoclopramide Hcl 10mg/2ml Vial IVP 07/23/20 03:34 10 mg ONCE ONE Administration Sodium Chloride 10 ml 07/23/20 04:50 07/23/20 04:50 Sodium Chloride 0.9% 10ml Syr (Rad Only) IV 07/23/20 04:51 10 ml ONCE ONE Administration - CT Data CT Scan: Abdomen Time Received: 05:26 Findings Narrative: No significant abnormality noted on CT scan of the abdomen. Mild diverticulosis. Medical Decision Narrative:
[2020-07-23 05:36] VITALS: BP 132/83; PULSE 72; RESP 14; TEMP 36.6; O2SAT 100
== END 2020-07-23 05:40 | disposition home or self-care (01) ==
PROVIDERS: Emergency Provider Student in an Organized Health Care Education/Training Program; PCP Family Medicine
DX: K57.90 Diverticulosis of intestine, part unspecified, without perforation or abscess without bleeding (principal); E78.5 Hyperlipidemia, unspecified; F41.9 Anxiety disorder, unspecified; K86.9 Disease of pancreas, unspecified; Z79.899 Other long term (current) drug therapy
CPT/HCPCS: 74177; 80053; 81001; 81025; 82150; 83690; 85025; 96365; 96375; 99283; Q9967

== ENCOUNTER 2020-07-24 17:55 | Emergency (ER) | payer BC, SELFPAY ==
[2020-07-24] VITALS (8 sets, daily range): BP systolic 102–139; BP diastolic 65–92; PULSE 63–80; RESP 14–16; TEMP 36.6–36.7; O2SAT 93–98; BMI 34.1
[2020-07-24 19:32] LABS: Basophils # 0.1 K/mm3 (0-0.2); Basophils % 1.4 % (0.1-2.0); Eosinophils % 0.1 % (0.1-12.0); Hematocrit 40.5 % (37.0-47.0); Hemoglobin 13.4 g/dL (12.2-16.2); Lymphocytes # 1.7 K/mm3 (0.7-4.5); Lymphocytes % 25.9 % (10-50); Mean Corpuscular HGB Conc 33.1 g/dL (31.8-35.4); Mean Corpuscular Hemoglobin 30.1 pg (27.0-31.2); Mean Corpuscular Volume 90.8 fl (81-99); Mean Platelet Volume 8.1 fl (7.4-10.4); Monocytes # 0.4 K/mm3 (0.1-1.0); Monocytes % 5.8 % (1.7-9.3); Neutrophils # 4.3 K/mm3 (1.8-7.8); Neutrophils % 66.8 % (37.0-80.0); Platelet Count 222 K/mm3 (142-424); Red Blood Count 4.46 M/mm3 (4.20-5.40); Red Cell Distribution Width 13.6 % (11.5-17.5); White Blood Count 6.4 K/mm3 (4.8-10.8)
--- NOTE | 2020-07-24 20:46 | HMH.EDNVD ---
ED Disposition Clinical Impression: Abdominal pain Qualifiers: Abdominal location: upper abdomen, unspecified Qualified Code(s): R10.10 - Upper abdominal pain, unspecified Disposition: Home, Self-Care Condition on Discharge: Good Instructions: DI for Acute Abdominal Pain Additional Instructions: fluids and see pcp for follow up Referrals: Elmo Escobar MD [Primary Care Provider] - - Critical Care Critical Care Time: No Attestation: On 07/24/20, the high probability of a clinically significant, sudden or life threatening deterioration of the following system(s) required my full and direct attention, intervention and personal management. The time I documented below is in addition to time spent performing reported procedures but includes the following listed in this critical care notation. Medical Decision Making - Medical Records Medical records reviewed: Yes: I reviewed the patient's medical records. - Ramses Inquiry Pt receiving controlled substance: No Vital Signs: 07/24/20 17:57 07/24/20 19:01 07/24/20 19:22 Temperature 98 F Temperature Source Oral Pulse Rate 80 63 Pulse Rate [Radial] 65 Respiratory Rate 16 Blood Pressure 102/67 L 105/69 L Blood Pressure [Right Arm] 119/76 Blood Pressure Mean [Right Arm] 90 Blood Pressure Position [Right Arm] Sitting 02 Sat by Pulse Oximetry 98 93 L 95 Oxygen Delivery Method Room Air 07/24/20 19:30 07/24/20 20:00 07/24/20 20:30 Temperature Temperature Source Pulse Rate 68 63 65 Pulse Rate [Radial] Respiratory Rate Blood Pressure 110/69 103/65 L 108/66 L Blood Pressure [Right Arm] Blood Pressure Mean [Right Arm] Blood Pressure Position [Right Arm] 02 Sat by Pulse Oximetry 94 L 95 94 L Oxygen Delivery Method 07/24/20 21:11 Temperature Temperature Source Pulse Rate 67 Pulse Rate [Radial] Respiratory Rate Blood Pressure 139/92 H Blood Pressure [Right Arm] Blood Pressure Mean [Right Arm] Blood Pressure Position [Right Arm] 02 Sat by Pulse Oximetry 94 L Oxygen Delivery Method - Lab Data Lab results reviewed: Yes: I reviewed the patient's lab results. Lab Results 07/24/20 18:55: WBC 6.4, RBC 4.46, Hgb 13.4, Hct 40.5, MCV 90.8, MCH 30.1, MCHC 33.1, RDW 13.6, Plt Count 222, MPV 8.1, Neut % (Auto) 66.8, Lymph % (Auto) 25.9, [place] % (Auto) 5.8, Eos % (Auto) 0.1, Baso % (Auto) 1.4, Neut # (Auto) 4.3, Lymph # (Auto) 1.7, [place] # (Auto) 0.4, Eos # (Auto) 0.0, Baso # (Auto) 0.1 07/24/20 18:55: Sodium 138, Potassium 4.2, Chloride 104, Carbon Dioxide 26, Anion Gap 12.2, BUN 8 D, Creatinine 0.50 L, Estimated Creat Clear 235, Estimated GFR 142, Est GFR ( Amer) 172 D, Glucose 94, Calcium 9.2, Total Bilirubin 0.3, AST 60 H, ALT 91 H, Alkaline Phosphatase 106, Total Protein 7.2, Albumin 4.2, Globulin 3.0, Albumin/Globulin Ratio 1.4, Amylase 77, Lipase 171 Result diagrams: 07/24/20 18:55 07/24/20 18:55 Orders (Tests/Meds): ED MEDICATIONS Generic Name Dose Route Start Last Admin Trade Name Freq PRN Reason Stop Dose Admin Lactated Ringer's 1,000 mls @ 999 mls/hr 07/24/20 19:00 07/24/20 19:07 Lactated Ringer's 1000 Ml Bag IV 07/24/20 20:00 999 mls/hr .Q1H1M INO Administration Discontinued Medications Generic Name Dose Route Start Last Admin Trade Name Freq PRN Reason Stop Dose Admin Hydromorphone HCl 1 mg 07/24/20 18:56 07/24/20 19:06 Hydromorphone 2mg/Ml Syringe IV 07/24/20 18:57 1 mg ONCE ONE Administration Ondansetron HCl 4 mg 07/24/20 18:57 07/24/20 19:07 Ondansetron 4mg/2ml Vial IV 07/24/20 18:58 4 mg ONCE ONE Administration ORDERS Category Date Time Status Urinalysis and Microscopic Stat Lab 07/24/20 18:50 Ordered Medical Decision Narrative: pt has ongoing abd pain with vomiting - pt with stable recent ct - pt with stable labs - Nausea/Vomiting/Diarrhea HPI - General Chief complaint: Abdominal Pain Stated complaint: vomiting,abd Pain
[2020-07-24 20:48] LABS: Alanine Aminotransferase 91 U/L (12-78); Albumin Level 4.2 g/dl (3.5-5.0); Albumin/Globulin Ratio 1.4 (1.1-1.8); Alkaline Phosphatase 106 U/L (38-126); Amylase 77 U/L (30-110); Anion Gap 12.2 mEq/L (5-15); Aspartate Amino Transferase 60 U/L (14-36); Bilirubin,Total 0.3 mg/dl (0.2-1.3); Blood Urea Nitrogen 8 mg/dl (7-17); Carbon Dioxide 26 mmol/L (22.0-30.0); Chloride 104 mmol/L (98-107); Creatinine Clearance Estimated 235 mL/min (50-200); Estimated Glomerular Filt Rate 142 ml/min (>60); GFR (African American) 172 ML/MIN (>60); Glucose 94 mg/dl (74-100); Potassium 4.2 mmoL/L (3.5-5.1); Sodium 138 mmol/L (136-145); Total Protein,Serum 7.2 g/dl (6.3-8.2)
[2020-07-24 20:55] LABS: Lipase 171 U/L (23-300)
[2020-07-24 21:03] LABS: Calcium 9.2 mg/dl (8.4-10.2)
== END 2020-07-24 21:40 | disposition home or self-care (01) ==
PROVIDERS: Emergency Medicine; Emergency Provider Emergency Medicine; PCP Family Medicine
DX: R10.10 Upper abdominal pain, unspecified (principal); R11.10 Vomiting, unspecified; F41.9 Anxiety disorder, unspecified; E78.5 Hyperlipidemia, unspecified; F17.210 Nicotine dependence, cigarettes, uncomplicated
CPT/HCPCS: 80053; 82150; 83690; 85025; 96365; 96372; 96375; 99282; J2405

== ENCOUNTER 2020-07-28 20:54 | Observation (INO) | payer BC, SELFPAY ==
[2020-07-28] VITALS (7 sets, daily range): BP systolic 110–125; BP diastolic 69–82; PULSE 58–91; RESP 15–16; TEMP 36.6–36.7; O2SAT 92–99; BMI 33.3
--- NOTE | 2020-07-28 21:19 | HMH.EDNVD ---
ED Disposition Clinical Impression: Obesity (BMI 30-39.9) Acute pancreatitis Qualifiers: Pancreatitis type: unspecified pancreatitis type Acute pancreatitis complication: no infection or necrosis Qualified Code(s): K85.90 - Acute pancreatitis without necrosis or infection, unspecified Disposition: Admitted as Observation Condition on Discharge: Good Instructions: DI for Acute Abdominal Pain Referrals: George Mckinley MD [Primary Care Provider] - - Critical Care Critical Care Time: No Attestation: On 07/28/20, the high probability of a clinically significant, sudden or life threatening deterioration of the following system(s) required my full and direct attention, intervention and personal management. The time I documented below is in addition to time spent performing reported procedures but includes the following listed in this critical care notation. Medical Decision Making - Medical Records Medical records reviewed: Yes: I reviewed the patient's medical records. - Ramses Inquiry Pt receiving controlled substance: No Vital Signs: 07/28/20 20:57 07/28/20 21:03 07/28/20 22:12 Temperature 97.8 F Temperature Source Oral Pulse Rate 90 72 Pulse Rate [Right] 91 H Respiratory Rate 16 Blood Pressure 125/82 120/70 Blood Pressure [Right Arm] 125/82 Blood Pressure Mean 95 Blood Pressure Mean [Right Arm] 96 02 Sat by Pulse Oximetry 96 96 99 Oxygen Delivery Method Room Air Room Air - Lab Data Lab results reviewed: Yes: I reviewed the patient's lab results. Lab Results 07/28/20 21:13: Urine Color Yellow, Urine Appearance Cloudy, Urine pH 5.0, Ur Specific [place] 1.020, Urine Protein Negative, Urine Glucose (UA) Negative, Urine Ketones Negative, Urine Blood 2+, Urine Nitrate Negative, Urine Bilirubin Negative, Urine Urobilinogen 0.2, Ur Leukocyte Esterase Negative, Urine RBC 5-10, Urine WBC 3-5, Ur Squamous Epith Cells 10-20, Urine Bacteria 3+ 07/28/20 21:13: Urine HCG, Qual Negative 07/28/20 21:13: Urine Opiates Screen Positive H, Urine Methadone Screen Negative, Ur Barbituates Screen Negative, Ur Phencyclidine Scrn Negative, Ur Amphetamines Screen Negative, U Benzodiazepines Scrn Negative, Urine Cocaine Screen Negative, U Marijuana (THC) Screen Positive H 07/28/20 21:15: WBC 6.3, RBC 4.46, Hgb 13.5, Hct 40.0, MCV 89.5, MCH 30.3, MCHC 33.8, RDW 13.8, Plt Count 197, MPV 8.9, Neut % (Auto) 56.1, Lymph % (Auto) 38.4, [place] % (Auto) 3.9, Eos % (Auto) 0.2, Baso % (Auto) 1.3, Neut # (Auto) 3.5, Lymph # (Auto) 2.4, [place] # (Auto) 0.3, Eos # (Auto) 0.0, Baso # (Auto) 0.1 07/28/20 21:15: Sodium 138, Potassium 3.9, Chloride 101, Carbon Dioxide 31 H, Anion Gap 9.9, BUN 6 L, Creatinine 0.60, Estimated Creat Clear 191, Estimated GFR 115, Est GFR ( Amer) 139, Glucose 100, Calcium 9.5, Total Bilirubin 0.6, AST 35, ALT 54, Alkaline Phosphatase 92, C-Reactive Protein 6.6 H, Total Protein 7.3, Albumin 4.5, Globulin 2.8, Albumin/Globulin Ratio 1.6, Amylase 300 H, Lipase 3178 H 07/28/20 21:15: ESR 17 07/28/20 21:15: Procalcitonin 0.037 Result diagrams: 07/28/20 21:15 07/28/20 21:15 Orders (Tests/Meds): ED MEDICATIONS Generic Name Dose Route Start Last Admin Trade Name Freq PRN Reason Stop Dose Admin Sodium Chloride 1,000 mls @ 999 mls/hr 07/28/20 21:30 07/28/20 21:25 Sod Chlor 0.9% 1000ml Bag IV 07/28/20 22:30 999 mls/hr .Q1H1M INO Administration Sodium Chloride 1,000 mls @ 999 mls/hr 07/28/20 23:00 07/28/20 23:06 Sod Chlor 0.9% 1000ml Bag IV 07/29/20 00:00 999 mls/hr .Q1H1M INO Administration Sodium Chloride 8 ml 07/28/20 21:21 Sodium Chloride 0.9% 10ml Vial IV 08/27/20 21:20 NEEDED PRN dilute pepcid Discontinued Medications Generic Name Dose Route Start Last Admin Trade Name Freq PRN Reason Stop Dose Admin Famotidine 20 mg 07/28/20 21:21 07/28/20 21:26 Famotidine 20mg/2ml Vial IV 07/28/20 21:22 20 mg ONCE ONE Administration Hydromorphone HC
--- NOTE | 2020-07-28 21:20 | XR_ITS ---
PROCEDURE INFORMATION: Exam: XR Complete Acute Abdomen Series Exam date and time: 07/28/2020 9:20 PM Age: 34 years old Clinical indication: Nausea and vomiting; Abdominal pain; Generalized; Patient HX: Chronic pancreatitis with abd pain and n/v/d TECHNIQUE: Imaging protocol: XR complete acute abdomen series, including 2 or more views of the abdomen and a single view chest. COMPARISON: CT ABDOMEN PELVIS W CON 07/23/2020 4:38 AM FINDINGS: Lungs: Normal. No consolidation. Pleural spaces: Normal. No pleural effusions. No pneumothorax. Heart/Mediastinum: Normal. No cardiomegaly. Gastrointestinal tract: Nonobstructive bowel gas pattern. Intraperitoneal space: Nonspecific pelvic calcifications Organs: Prior cholecystectomy. Bones/joints: Normal. No acute fracture. Soft tissues: Normal. IMPRESSION: Nonobstructive bowel gas pattern.
[2020-07-28 21:27] LABS: Basophils # 0.1 K/mm3 (0-0.2); Basophils % 1.3 % (0.1-2.0); Eosinophils % 0.2 % (0.1-12.0); Hemoglobin 13.5 g/dL (12.2-16.2); Lymphocytes # 2.4 K/mm3 (0.7-4.5); Lymphocytes % 38.4 % (10-50); Mean Corpuscular HGB Conc 33.8 g/dL (31.8-35.4); Mean Corpuscular Hemoglobin 30.3 pg (27.0-31.2); Mean Corpuscular Volume 89.5 fl (81-99); Mean Platelet Volume 8.9 fl (7.4-10.4); Monocytes # 0.3 K/mm3 (0.1-1.0); Monocytes % 3.9 % (1.7-9.3); Neutrophils # 3.5 K/mm3 (1.8-7.8); Neutrophils % 56.1 % (37.0-80.0); Platelet Count 197 K/mm3 (142-424); Red Blood Count 4.46 M/mm3 (4.20-5.40); Red Cell Distribution Width 13.8 % (11.5-17.5); White Blood Count 6.3 K/mm3 (4.8-10.8)
[2020-07-28 21:29] LABS: Microscopic, Urine URINE MICROSCOPIC (MICROSCOPIC)
[2020-07-28 21:42] LABS: Appearance,Urine CLOUDY (Clear); Bilirubin,Urine Negative (Negative); Blood, Urine 2+ (Negative); Color,Urine YELLOW (Yellow); Glucose,Urine (UA) Negative (Negative); Ketones,Urine Negative (Negative); Leukocyte Esterase,Urine Negative (Negative); Nitrate,Urine Negative (Negative); Protein,Urine Negative (Negative); Urobilinogen,Urine 0.2 EU/dl (0.2)
[2020-07-28 21:45] LABS: Alanine Aminotransferase 54 U/L (12-78); Albumin Level 4.5 g/dl (3.5-5.0); Albumin/Globulin Ratio 1.6 (1.1-1.8); Alkaline Phosphatase 92 U/L (38-126); Amylase 300 U/L (30-110); Anion Gap 9.9 mEq/L (5-15); Aspartate Amino Transferase 35 U/L (14-36); Bilirubin,Total 0.6 mg/dl (0.2-1.3); Blood Urea Nitrogen 6 mg/dl (7-17); Calcium 9.5 mg/dl (8.4-10.2); Carbon Dioxide 31 mmol/L (22.0-30.0); Chloride 101 mmol/L (98-107); Creatinine Clearance Estimated 191 mL/min (50-200); Estimated Glomerular Filt Rate 115 ml/min (>60); GFR (African American) 139 ML/MIN (>60); Globulin 2.8 g/dL (1.3-3.2); Glucose 100 mg/dl (74-100); Potassium 3.9 mmoL/L (3.5-5.1); Sodium 138 mmol/L (136-145); Total Protein,Serum 7.3 g/dl (6.3-8.2)
[2020-07-28 21:45] LABS: Urine Pregnancy, HCG Qual. Negative (Negative)
[2020-07-28 21:50] LABS: C-Reactive Protein 6.6 mg/L (0-4)
[2020-07-28 21:50] LABS: Bacteria,Urine 3+ /lpf
[2020-07-28 21:54] LABS: Amphetamine/Metha Screen,Urine Negative ng/ml (<1000); Barbiturates Screen,Urine Negative ng/ml (<200)
[2020-07-28 21:55] LABS: Benzodiazepines Screen,Urine Negative ng/ml (<200)
[2020-07-28 21:56] LABS: Cannabinoid Screen,Urine Positive ng/ml (<50); Cocaine Screen,Urine Negative ng/ml (<300)
[2020-07-28 21:57] LABS: Methadone Screen,Urine Negative ng/ml (<300); Opiate Screen,Urine Positive ng/ml (<300)
[2020-07-28 21:58] LABS: Phencyclidine Screen,Urine Negative ng/ml (<25)
[2020-07-28 22:00] LABS: Erythrocyte Sedimentation Rate 17 mm/hr (0-20)
[2020-07-28 22:01] LABS: Lipase 3178 U/L (23-300)
[2020-07-28 22:04] LABS: Procalcitonin 0.037 ng/mL (0.0-2.0)
[2020-07-28 23:03] LABS: Adenovirus,PCR Not Detected (NotDetected); Bordetella Pertussis Not Detected (NotDetected); Chlamydophila Pneumoniae, PCR Not Detected (NotDetected); Coronavirus 19, PCR Not Detected (NotDetected); Coronavirus 229E Not Detected (NotDetected); Coronavirus NL63 Not Detected (NotDetected); Coronavirus OC43 Not Detected (NotDetected); Coronovirus HKU1,PCR Not Detected (NotDetected); Human Metapneumovirus Not Detected (NotDetected); Influenza A, PCR Not Detected (NotDetected); Influenza AH1, 2009 Not Detected (NotDetected); Influenza AH1, PCR Not Detected (NotDetected); Influenza AH3,PCR Not Detected (NotDetected); Influenza B, PCR Not Detected (NotDetected); Mycoplasma Pneumoniae, PCR Not Detected (NotDetected); Parainfluenza 1, PCR Not Detected (NotDetected); Parainfluenza 2, PCR Not Detected (NotDetected); Parainfluenza 3, PCR Not Detected (NotDetected); Parainfluenza 4, PCR Not Detected (NotDetected); Respiratory Syncytial Virus Not Detected (NotDetected); Rhinovirus/Enterovirus Not Detected (NotDetected)
--- NOTE | 2020-07-28 23:53 | PC.NURSE ---
Called report to Geneva Macias RN. Let RN know there was 40min left on covid swab.
--- NOTE | 2020-07-29 00:50 | PC.NURSE ---
Called 2nd floor to let them know covid swab has resulted and pt ready to go to 2nd fl
[2020-07-29 01:01] VITALS: BP 108/54; PULSE 63; RESP 17; TEMP 36.5; O2SAT 98; BMI 34.3
--- NOTE | 2020-07-29 01:01 | PC.NURSE ---
PT ARRIVED TO FLOOR VIA W/C FROM ED W/STAFF AT 0101
--- NOTE | 2020-07-29 03:26 | PC.NURSE ---
A&OX4. TOLERATING RA WELL. PT UP INDEPENDENTLY IN ROOM. PT ABD TENDER TO TOUCH. TX WITH PRN DILAUDID. ON REASSESSMENT PT RESTING IN BED. PT HAS SLEPT WELL T/O MAJORITY OF SHIFT. TOLERATING NPO DIET WELL. NO OTHER C/O THUS FAR, VSS WILL CONTINUE TO MONITOR.
[2020-07-29 04:00] VITALS: BP 97/53; PULSE 63; RESP 17; TEMP 36.5; O2SAT 97
[2020-07-29 07:12] LABS: Basophils # 0.1 K/mm3 (0-0.2); Basophils % 1.5 % (0.1-2.0); Hematocrit 36.2 % (37.0-47.0); Lymphocytes % 52.7 % (10-50); Mean Corpuscular HGB Conc 32.9 g/dL (31.8-35.4); Mean Corpuscular Hemoglobin 30.6 pg (27.0-31.2); Mean Corpuscular Volume 93.1 fl (81-99); Mean Platelet Volume 8.1 fl (7.4-10.4); Monocytes # 0.2 K/mm3 (0.1-1.0); Monocytes % 4.3 % (1.7-9.3); Neutrophils # 2.4 K/mm3 (1.8-7.8); Neutrophils % 41.5 % (37.0-80.0); Platelet Count 181 K/mm3 (142-424); Red Blood Count 3.89 M/mm3 (4.20-5.40); Red Cell Distribution Width 13.7 % (11.5-17.5); White Blood Count 5.7 K/mm3 (4.8-10.8)
[2020-07-29 07:13] LABS: MANUAL DIFFERENTIAL MANUAL DIFFERENTIAL (MANUAL DIFF)
[2020-07-29 07:15] LABS: Amylase 166 U/L (30-110); Chloride 114 mmol/L (98-107); Potassium 4.2 mmoL/L (3.5-5.1); Sodium 142 mmol/L (136-145)
[2020-07-29 07:18] LABS: Anion Gap 6.2 mEq/L (5-15); Blood Urea Nitrogen 4 mg/dl (7-17); Carbon Dioxide 26 mmol/L (22.0-30.0); Creatinine Clearance Estimated 236 mL/min (50-200); Estimated Glomerular Filt Rate 142 ml/min (>60); GFR (African American) 172 ML/MIN (>60); Glucose 90 mg/dl (74-100)
[2020-07-29 07:32] LABS: Lipase 604 U/L (23-300)
[2020-07-29 08:00] VITALS: BP 104/63; PULSE 62; RESP 18; TEMP 36.6; O2SAT 97
[2020-07-29 08:07] LABS: Calcium 7.9 mg/dl (8.4-10.2)
[2020-07-29 09:07] LABS: Lymphocytes % 55 % (10-50); Monocytes % 6 % (2-9); Neutrophils % 39 % (42-76); Total Cells Counted 100
[2020-07-29 09:08] LABS: Platelet Estimate Normal; RBC Morphology Normal
--- NOTE | 2020-07-29 09:38 | HMH.HPDC ---
General - General Admission date:: 07/29/20 Discharge date: 07/29/20 *Admission Date: 07/28/20 *Chief complaint: abd pain *History of present illness: this pt presented to the [facility] ed with progressive abd pain with nausea and pain despite pain meds - pt also reported vomiting - pt has been compliant with meds - pt has seen gi and had ercp - no fever and in the ed was found to have elevated lipase and was admitted [facility] History I have reviewed the patient's past medical history: Yes Medical History: Reports:: Anxiety, Hyperlipidemia Denies:: Cancer, Diabetes Mellitus Type 1, Diabetes Mellitus Type 2, MRSA, Seizures, Urinary Tract Infection *Have you ever received a pneumonia vaccine?: No *Have you received a flu vaccine this season?: Yes Other Medical History: Reports: Fibromyalgia. Denies: Thyroid Disease Other Surgeries: Yes: Cholecystectomy, Dilation and Curettage. No: Amputation: No Fractures: No - *Social History Smoking Status: Current every day smoker Tobacco Type: cigarettes # Packs/Day (cigarettes): 1 Alcohol Intake: current Alcohol Intake Frequency:: a few times a week Substance Use Type: marijuana Last Used Substance: hours (ago) *Occupational Status:: unemployed Housing: house Household Members: children *Travel in the last 8 weeks: None - Psychiatric History Pschychiatric History:: Reports:: Anxiety Family Hx:: No significant family history Review of Systems - Review of Systems Review of systems:: pertinent systems reviewed and negative unless documented below - Constitutional Denies fever(s) - Eyes Denies change in vision - ENT Denies sore throat - *Cardiovascular Denies chest pain - *Respiratory Denies cough - *Gastrointestinal Reports abdominal pain, Reports nausea, Reports vomiting, Denies black, tarry stools - *Genitourinary Denies blood in urine - *Musculoskeletal Denies joint pain, Denies limited joint movement - Integumentary/Breasts Denies rash - *Neurologic Denies localized weakness, Denies seizure-like activity - Psychiatric Denies anxiety Exam Vital signs and Labs for Last 24 Hours: Temp Pulse Resp BP Pulse Ox 97.7 F 63 17 97/53 L 97 07/29/20 04:00 07/29/20 04:00 07/29/20 04:00 07/29/20 04:00 07/29/20 04:00 Laboratory Results - last 24 hr 07/28/20 21:13: Urine Color Yellow, Urine Appearance Cloudy, Urine pH 5.0, Ur Specific [place] 1.020, Urine Protein Negative, Urine Glucose (UA) Negative, Urine Ketones Negative, Urine Blood 2+, Urine Nitrate Negative, Urine Bilirubin Negative, Urine Urobilinogen 0.2, Ur Leukocyte Esterase Negative, Urine RBC 5-10, Urine WBC 3-5, Ur Squamous Epith Cells 10-20, Urine Bacteria 3+ 07/28/20 21:13: Urine HCG, Qual Negative 07/28/20 21:13: Urine Opiates Screen Positive H, Urine Methadone Screen Negative, Ur Barbituates Screen Negative, Ur Phencyclidine Scrn Negative, Ur Amphetamines Screen Negative, U Benzodiazepines Scrn Negative, Urine Cocaine Screen Negative, U Marijuana (THC) Screen Positive H 07/28/20 21:15: WBC 6.3, RBC 4.46, Hgb 13.5, Hct 40.0, MCV 89.5, MCH 30.3, MCHC 33.8, RDW 13.8, Plt Count 197, MPV 8.9, Neut % (Auto) 56.1, Lymph % (Auto) 38.4, [place] % (Auto) 3.9, Eos % (Auto) 0.2, Baso % (Auto) 1.3, Neut # (Auto) 3.5, Lymph # (Auto) 2.4, [place] # (Auto) 0.3, Eos # (Auto) 0.0, Baso # (Auto) 0.1 07/28/20 21:15: Sodium 138, Potassium 3.9, Chloride 101, Carbon Dioxide 31 H, Anion Gap 9.9, BUN 6 L, Creatinine 0.60, Estimated Creat Clear 191, Estimated GFR 115, Est GFR ( Amer) 139, Glucose 100, Calcium 9.5, Total Bilirubin 0.6, AST 35, ALT 54, Alkaline Phosphatase 92, C-Reactive Protein 6.6 H, Total Protein 7.3, Albumin 4.5, Globulin 2.8, Albumin/Globulin Ratio 1.6, Amylase 300 H, Lipase 3178 H 07/28/20 21:15: ESR 17 07/28/20 21:15: Procalcitonin 0.037 07/28/20 22:55: Chlamy pneumoniae PCR Not detected, Adenovirus (PCR) Not detected, B. pertussis DNA (PCR) Not detected, Coronavirus OC43 (PCR) Not detected
== END 2020-07-29 10:55 | disposition home or self-care (01) ==
LOC: ER 23:40 → 2ND 07-29 01:34
PROVIDERS: Admitting Provider Emergency Medicine; Emergency Provider Emergency Medicine; PCP Emergency Medicine; Visit Provider Emergency Medicine
DX: K85.90 Acute pancreatitis without necrosis or infection, unspecified (principal); F17.210 Nicotine dependence, cigarettes, uncomplicated; Z79.899 Other long term (current) drug therapy; F41.8 Other specified anxiety disorders
CPT/HCPCS: 36415; 74021; 80048; 80053; 80305; 81001; 81025; 82150; 83690; 84145; 85007; 85025; 85651; 86140; 87086; 87581; 87633; 87798; 96365; 96366; 96375; 99284; G0378; J2405

== ENCOUNTER 2020-07-30 18:54 | Emergency (ER) | payer BC, SELFPAY ==
[2020-07-30 19:22] VITALS: BP 152/112; PULSE 101; RESP 26; TEMP 37.2; O2SAT 99; BMI 33.3
[2020-07-30 19:59] LABS: Basophils # 0.1 K/mm3 (0-0.2); Eosinophils # 0.1 K/mm3 (0.0-0.4); Hematocrit 44.1 % (37.0-47.0); Hemoglobin 14.9 g/dL (12.2-16.2); Lymphocytes # 2.3 K/mm3 (0.7-4.5); Lymphocytes % 24.7 % (10-50); Mean Corpuscular HGB Conc 33.7 g/dL (31.8-35.4); Mean Corpuscular Hemoglobin 29.8 pg (27.0-31.2); Mean Corpuscular Volume 88.5 fl (81-99); Mean Platelet Volume 7.9 fl (7.4-10.4); Monocytes # 0.2 K/mm3 (0.1-1.0); Monocytes % 2.7 % (1.7-9.3); Neutrophils # 6.4 K/mm3 (1.8-7.8); Neutrophils % 70.6 % (37.0-80.0); Platelet Count 228 K/mm3 (142-424); Red Blood Count 4.98 M/mm3 (4.20-5.40); Red Cell Distribution Width 13.7 % (11.5-17.5); White Blood Count 9.1 K/mm3 (4.8-10.8)
[2020-07-30 20:25] LABS: Chloride 108 mmol/L (98-107); Sodium 140 mmol/L (136-145)
[2020-07-30 20:26] LABS: Potassium 3.6 mmoL/L (3.5-5.1)
[2020-07-30 20:28] LABS: Alanine Aminotransferase 30 U/L (12-78); Alkaline Phosphatase 90 U/L (38-126); Amylase 59 U/L (30-110); Anion Gap 9.6 mEq/L (5-15); Bilirubin,Direct 0.3 mg/dl (0.0-0.4); Bilirubin,Indirect 0.3 mg/dL (0.0-0.9); Bilirubin,Total 0.6 mg/dl (0.2-1.3); Bilirubin,Unconjugated 0.3 mg/dL (0.0-1.1); Blood Urea Nitrogen 5 mg/dl (7-17); Carbon Dioxide 26 mmol/L (22.0-30.0); Creatinine Clearance Estimated 229 mL/min (50-200); Estimated Glomerular Filt Rate 142 ml/min (>60); GFR (African American) 172 ML/MIN (>60); Glucose 100 mg/dl (74-100)
[2020-07-30 20:29] LABS: Albumin Level 4.1 g/dl (3.5-5.0); Albumin/Globulin Ratio 1.4 (1.1-1.8); Globulin 2.9 g/dL (1.3-3.2); Lipase 54 U/L (23-300)
[2020-07-30 20:34] LABS: C-Reactive Protein 3.4 mg/L (0-4)
[2020-07-30 20:40] VITALS: BP 133/89; PULSE 53; O2SAT 100
[2020-07-30 20:43] LABS: Erythrocyte Sedimentation Rate 17 mm/hr (0-20)
--- NOTE | 2020-07-30 20:43 | HMH.EDNVD ---
ED Disposition Clinical Impression: Abdominal pain Qualifiers: Abdominal location: epigastric Qualified Code(s): R10.13 - Epigastric pain Disposition: Home, Self-Care Condition on Discharge: Good Instructions: DI for Acute Abdominal Pain Additional Instructions: see pcp for follow up and gi - Referrals: Elmo Escobar MD [Primary Care Provider] - - Critical Care Critical Care Time: No Attestation: On 07/30/20, the high probability of a clinically significant, sudden or life threatening deterioration of the following system(s) required my full and direct attention, intervention and personal management. The time I documented below is in addition to time spent performing reported procedures but includes the following listed in this critical care notation. Medical Decision Making - Medical Records Medical records reviewed: Yes: I reviewed the patient's medical records. - Ramses Inquiry Pt receiving controlled substance: No Vital Signs: 07/30/20 19:22 Temperature 98.9 F Temperature Source Oral Pulse Rate [Right Brachial] 101 H Respiratory Rate 26 H Blood Pressure [Right Arm] 152/112 H Blood Pressure Mean [Right Arm] 125 Blood Pressure Source [Right Arm] Automatic Cuff Blood Pressure Position [Right Arm] Sitting 02 Sat by Pulse Oximetry 99 Oxygen Delivery Method Room Air - Lab Data Lab results reviewed: Yes: I reviewed the patient's lab results. Lab Results 07/30/20 19:49: WBC 9.1 D, RBC 4.98 D, Hgb 14.9, Hct 44.1, MCV 88.5, MCH 29.8, MCHC 33.7, RDW 13.7, Plt Count 228 D, MPV 7.9, Neut % (Auto) 70.6, Lymph % (Auto) 24.7, [place] % (Auto) 2.7, Eos % (Auto) 1.0, Baso % (Auto) 1.0, Neut # (Auto) 6.4, Lymph # (Auto) 2.3, [place] # (Auto) 0.2, Eos # (Auto) 0.1, Baso # (Auto) 0.1, ESR 17 07/30/20 20:11: Sodium 140, Potassium 3.6, Chloride 108 H, Carbon Dioxide 26, Anion Gap 9.6, BUN 5 L, Creatinine 0.50 L, Estimated Creat Clear 229, Estimated GFR 142, Est GFR ( Amer) 172, Glucose 100, Total Bilirubin 0.6, Direct Bilirubin 0.3, Conjugated Bilirubin 0.0, Indirect Bilirubin 0.3, Unconjugated Bilirubin 0.3, AST 24 D, ALT 30 D, Alkaline Phosphatase 90, C-Reactive Protein 3.4 D, Total Protein 7.0, Albumin 4.1, Globulin 2.9, Albumin/Globulin Ratio 1.4, Amylase 59, Lipase 54 07/30/20 20:11: Procalcitonin < 0.030 Result diagrams: 07/30/20 19:49 07/30/20 20:11 Orders (Tests/Meds): ED MEDICATIONS Generic Name Dose Route Start Last Admin Trade Name Freq PRN Reason Stop Dose Admin Sodium Chloride 1,000 mls @ 999 mls/hr 07/30/20 19:30 07/30/20 19:55 Sod Chlor 0.9% 1000ml Bag IV 07/30/20 20:30 999 mls/hr .Q1H1M INO Administration Discontinued Medications Generic Name Dose Route Start Last Admin Trade Name Freq PRN Reason Stop Dose Admin Hydromorphone HCl 1 mg 07/30/20 19:51 07/30/20 19:55 Hydromorphone 2mg/Ml Syringe IV 07/30/20 19:52 1 mg ONCE ONE Administration Ondansetron HCl 4 mg 07/30/20 19:28 07/30/20 19:55 Ondansetron 4mg/2ml Vial IV 07/30/20 19:29 4 mg ONCE ONE Administration ORDERS Category Date Time Status Amylase Stat Lab 07/30/20 20:11 Results C-Reactive Protein Stat Lab 07/30/20 20:11 Results Comprehensive Metabolic Panel Stat Lab 07/30/20 20:11 Results Lipase Stat Lab 07/30/20 20:11 Results Liver Panel Stat Lab 07/30/20 20:11 Results Urinalysis and Microscopic Stat Lab 07/30/20 19:29 Ordered Medical Decision Narrative: abd pain with hx of pancreatitis - labs stable Nausea/Vomiting/Diarrhea HPI - General Chief complaint: Abdominal Pain Stated complaint: abd pain\ Time Seen by Provider: 07/30/20 20:00 Mode of Arrival: Family Vehicle Source of Information: Patient, Medical Record Limitations: No Limitations Description of Symptoms (Recalled from ER Triage Doc. by RN): PRESENTS WITH CONTINUED PAIN RELATED TO HER KNOWN DIAGNOSIS OF PANCREATITIS. STATES SHE HASN'T BEEN ABLE TO EAT OR DRINK ALL DAY, AND HAS BEEN DRY HEAVING - Hi
[2020-07-30 21:44] VITALS: BP 121/75; PULSE 83; RESP 16; TEMP 36.7; O2SAT 98
[2020-07-30 22:11] LABS: Aspartate Amino Transferase 26 U/L (14-36); Calcium 9.1 mg/dl (8.4-10.2)
== END 2020-07-30 21:46 | disposition home or self-care (01) ==
PROVIDERS: Emergency Provider Emergency Medicine; PCP Family Medicine
DX: R10.13 Epigastric pain (principal); E78.5 Hyperlipidemia, unspecified; F41.9 Anxiety disorder, unspecified
CPT/HCPCS: 80053; 80076; 82150; 83690; 85025; 85651; 86140; 96365; 96375; 96376; 99282; J2405

== ENCOUNTER 2020-08-03 22:25 | Emergency (ER) | payer BC, SELFPAY ==
[2020-08-03 22:26] VITALS: BP 120/56; PULSE 101; RESP 16; TEMP 36.9; O2SAT 97; BMI 33.3
[2020-08-03 22:51] LABS: Basophils # 0.1 K/mm3 (0-0.2); Eosinophils # 0.1 K/mm3 (0.0-0.4); Eosinophils % 0.7 % (0.1-12.0); Hematocrit 37.8 % (37.0-47.0); Lymphocytes # 2.9 K/mm3 (0.7-4.5); Lymphocytes % 36.7 % (10-50); Mean Corpuscular HGB Conc 34.5 g/dL (31.8-35.4); Mean Corpuscular Hemoglobin 30.5 pg (27.0-31.2); Mean Corpuscular Volume 88.3 fl (81-99); Mean Platelet Volume 7.3 fl (7.4-10.4); Monocytes # 0.4 K/mm3 (0.1-1.0); Monocytes % 4.9 % (1.7-9.3); Neutrophils # 4.5 K/mm3 (1.8-7.8); Neutrophils % 56.8 % (37.0-80.0); Platelet Count 247 K/mm3 (142-424); Red Blood Count 4.28 M/mm3 (4.20-5.40); Red Cell Distribution Width 13.8 % (11.5-17.5); White Blood Count 7.9 K/mm3 (4.8-10.8)
[2020-08-03 22:57] LABS: Alanine Aminotransferase 26 U/L (12-78); Albumin Level 4.2 g/dl (3.5-5.0); Albumin/Globulin Ratio 1.6 (1.1-1.8); Alkaline Phosphatase 80 U/L (38-126); Amylase 77 U/L (30-110); Anion Gap 10.2 mEq/L (5-15); Aspartate Amino Transferase 25 U/L (14-36); Bilirubin,Total 0.3 mg/dl (0.2-1.3); Blood Urea Nitrogen 10 mg/dl (7-17); Calcium 8.8 mg/dl (8.4-10.2); Carbon Dioxide 26 mmol/L (22.0-30.0); Chloride 104 mmol/L (98-107); Creatinine Clearance Estimated 191 mL/min (50-200); Estimated Glomerular Filt Rate 115 ml/min (>60); GFR (African American) 139 ML/MIN (>60); Globulin 2.6 g/dL (1.3-3.2); Glucose 124 mg/dl (74-100); Lipase 137 U/L (23-300); Potassium 4.2 mmoL/L (3.5-5.1); Sodium 136 mmol/L (136-145); Total Protein,Serum 6.8 g/dl (6.3-8.2)
[2020-08-03 23:03] LABS: C-Reactive Protein 4.7 mg/L (0-4)
--- NOTE | 2020-08-03 23:09 | HMH.EDNVD ---
ED Disposition Clinical Impression: Abdominal pain Qualifiers: Abdominal location: epigastric Qualified Code(s): R10.13 - Epigastric pain Disposition: Home, Self-Care Condition on Discharge: Good Instructions: DI for Acute Abdominal Pain Additional Instructions: fluids and see gi for follow up Referrals: Elmo Escobar MD [Primary Care Provider] - - Critical Care Critical Care Time: No Attestation: On 08/03/20, the high probability of a clinically significant, sudden or life threatening deterioration of the following system(s) required my full and direct attention, intervention and personal management. The time I documented below is in addition to time spent performing reported procedures but includes the following listed in this critical care notation. Medical Decision Making - Medical Records Medical records reviewed: Yes: I reviewed the patient's medical records. - Ramses Inquiry Pt receiving controlled substance: No Vital Signs: 08/03/20 22:26 Temperature 98.4 F Temperature Source Oral Pulse Rate [Right] 101 H Respiratory Rate 16 Blood Pressure [Right Arm] 120/56 L Blood Pressure Mean [Right Arm] 77 02 Sat by Pulse Oximetry 97 - Lab Data Lab results reviewed: Yes: I reviewed the patient's lab results. Lab Results 08/03/20 22:40: WBC 7.9, RBC 4.28, Hgb 13.0, Hct 37.8, MCV 88.3, MCH 30.5, MCHC 34.5, RDW 13.8, Plt Count 247, MPV 7.3 L, Neut % (Auto) 56.8, Lymph % (Auto) 36.7, [place] % (Auto) 4.9, Eos % (Auto) 0.7, Baso % (Auto) 1.0, Neut # (Auto) 4.5, Lymph # (Auto) 2.9, [place] # (Auto) 0.4, Eos # (Auto) 0.1, Baso # (Auto) 0.1 08/03/20 22:40: Sodium 136, Potassium 4.2, Chloride 104, Carbon Dioxide 26, Anion Gap 10.2, BUN 10, Creatinine 0.60, Estimated Creat Clear 191, Estimated GFR 115, Est GFR ( Amer) 139, Glucose 124 H, Calcium 8.8, Total Bilirubin 0.3, AST 25, ALT 26, Alkaline Phosphatase 80, C-Reactive Protein 4.7 H, Total Protein 6.8, Albumin 4.2, Globulin 2.6, Albumin/Globulin Ratio 1.6, Amylase 77, Lipase 137 Result diagrams: 08/03/20 22:40 08/03/20 22:40 Orders (Tests/Meds): ED MEDICATIONS Generic Name Dose Route Start Last Admin Trade Name Freq PRN Reason Stop Dose Admin Sodium Chloride 1,000 mls @ 999 mls/hr 08/03/20 23:00 08/03/20 23:06 Sod Chlor 0.9% 1000ml Bag IV 08/04/20 00:00 999 mls/hr .Q1H1M INO Administration Discontinued Medications Generic Name Dose Route Start Last Admin Trade Name Freq PRN Reason Stop Dose Admin Prochlorperazine Edisylate 10 mg 08/03/20 23:05 08/03/20 23:06 Prochlorperazine 10mg/2ml Vial IV 08/03/20 23:06 10 mg ONCE ONE Administration ORDERS Category Date Time Status Erythrocyte Sedimentation Rate Stat Lab 08/03/20 22:40 Received Procalcitonin Stat Lab 08/03/20 22:40 Received Urinalysis and Microscopic Stat Lab 08/03/20 22:44 Ordered Urine , HCG Qual. Stat Lab 08/03/20 22:44 Ordered Medical Decision Narrative: pt has ongoing episodes of pain and has stable labs and exam Nausea/Vomiting/Diarrhea HPI - General Chief complaint: Abdominal Pain Stated complaint: abdominal pain chronic pancreatitis Time Seen by Provider: 08/03/20 23:00 Mode of Arrival: Ambulatory Source of Information: Patient, Parent(s), Medical Record Limitations: No Limitations Description of Symptoms (Recalled from ER Triage Doc. by RN): pt c/o abd pain and RLQ since this morning - History of Present Illness HPI Narrative: this pt with recurrent abd pain with nausea with hx of pancreatitis - pt on pain meds - MD complaint: nausea, abdominal pain Onset (ago): hour(s) Associated Abdominal Pain: Yes Location of pain: epigastric Severity: moderate Associated symptoms: denies other symptoms - Related Data Home Medications Medication Instructions Recorded Confirmed methocarbamol 500 mg tablet 500 mg PO TIDP PRN tab 05/09/20 07/31/20 pregabalin 200 mg capsule 200 mg PO BID cap 05/09/20 07/31/20 venlafaxine
[2020-08-03 23:16] LABS: Erythrocyte Sedimentation Rate 18 mm/hr (0-20)
[2020-08-03 23:20] LABS: Procalcitonin < 0.030 ng/mL (0.0-2.0)
[2020-08-03 23:36] VITALS: BP 108/54; PULSE 86; RESP 16; TEMP 36.9; O2SAT 97
== END 2020-08-03 23:37 | disposition home or self-care (01) ==
PROVIDERS: Emergency Provider Emergency Medicine; PCP Family Medicine
DX: K85.90 Acute pancreatitis without necrosis or infection, unspecified (principal); F41.9 Anxiety disorder, unspecified; E78.5 Hyperlipidemia, unspecified; F17.210 Nicotine dependence, cigarettes, uncomplicated
CPT/HCPCS: 80053; 82150; 83690; 84145; 85025; 85651; 86140; 96372; 99282

== ENCOUNTER → 2020-08-06 08:30 | Outpatient (POV) | payer BC, SELFPAY ==
[2020-08-06 08:34] VITALS: BP 189/96; PULSE 103; RESP 18; O2SAT 97; BMI 33.3
--- NOTE | 2020-08-06 10:58 | HMH.PAINSOAP ---
[facility] Pain Management SOAP Note Subjective:: Patient is a 34-year-old white female who presents today for follow-up. Patient was seen while hospitalized at [facility] for pancreatitis. Patient has had multiple bouts of pancreatitis with flareups. She has had many hospitalizations and ER visits due to her recurrent pain. Patient has tried oral medications which gave her only short-term relief but her pain does return. Patient says that she will have flareups of pain even with a a normal lipase level. She has had an ERCP in the past with blocked stones. Her pain will wax and wane throughout the days. She does have 3 small children and says that it is limiting her ability to care for her children and activity throughout the days. She rates her pain an 8 out of 10 today. She is having a flareup today. She says that nothing has relieved her pain recently. She is asking for oral medications today. Patient I did have a discussion that intrathecal therapy would likely be the most beneficial for her chronic pain. She is interested in this today. She was given oral medications by a provider prior to her visit. She says that she will be out of these medications today. She and I discussed that she will not be able to opiates prior to the trial and we will hold off on giving her any oral medications at this time. Review of Systems General: No recent weight changes, no fever, no sleep disturbances Respiratory: No cough, no shortness of air, no recurring pulmonary infections Cardiovascular/peripheral vascular: No chest pain, no palpitations, no edema, no shortness of breath Gastrointestinal: No new onset incontinence, normal bowel movements reported Genitourinary: No new onset incontinence Musculoskeletal: Chronic abdominal pain Psychiatric: Normal mood/affect Neurological: [Denies weakness in extremities], [denies balance issues] Objective:: Physical exam General: Alert and oriented x3, no acute distress, pleasant and cooperative, [on room air] Lungs: Respirations even and unlabored, symmetrical chest expansion Gastrointestinal: Abdomen soft, nondistended. Tender to palpation Eyes: PERRL Musculoskeletal: Nonguarded, deep tendon reflexes normal, strength in upper and lower extremities [5/5], [abnormal gait noted] Neurological: Speech clear, lgsw equal, no gross sensory deficit Assessment:: Pancreatitis chronic Plan:: Patient I had a discussion concerning intrathecal therapy. We did discuss this while she was inpatient as well. I do think given her symptoms and failed treatment with oral medications, intrathecal therapy would be most beneficial for her pain. We will send the patient for psychological evaluation to determine if she is an appropriate candidate for intrathecal therapy. We will see her back afterwards to discuss her evaluation and discuss a further plan of care. She has been instructed to contact clinic if she has any concerns before next appointment. Patient has been instructed to contact the clinic with any concerns before the next appointment. Dr. Zuniga has reviewed this note and agrees with this plan of care. This note was dictated using voice recognition software and make contain errors or omissions. [facility] History I have reviewed the patient's past medical history: Yes Medical History: Reports:: Anxiety, Hyperlipidemia Denies:: Cancer, Diabetes Mellitus Type 1, Diabetes Mellitus Type 2, MRSA, Seizures, Urinary Tract Infection *Have you ever received a pneumonia vaccine?: No *Have you received a flu vaccine this season?: Yes Other Medical History: Reports: Fibromyalgia. Denies: Thyroid Disease Other Surgeries: Yes: Cholecystectomy, Dilation and Curettage. No: Amputation: No Fractures: No - *Social History Smoking Status: Current every day smoker Tobacco Type: cigarettes # Packs/Day (cigarettes): 1 Alcohol Intake: never Alcohol Intake Frequency:: a few times a week Subs
== END ==
PROVIDERS: PCP Family Medicine; Visit Provider Clinical Nurse Specialist Family Health
DX: K86.1 Other chronic pancreatitis (principal)
CPT/HCPCS: 99212; G0463

== ENCOUNTER 2020-08-06 10:37 | Observation (INO) | payer BC, SELFPAY ==
[2020-08-06] VITALS (11 sets, daily range): BP systolic 110–148; BP diastolic 67–92; PULSE 59–102; RESP 16–20; TEMP 36.4–36.9; O2SAT 18–100; BMI 33.3; BMI 34.2
[2020-08-06 10:59] LABS: Microscopic, Urine URINE MICROSCOPIC (MICROSCOPIC)
[2020-08-06 11:03] LABS: Appearance,Urine CLEAR (Clear); Bilirubin,Urine Negative (Negative); Blood, Urine Negative (Negative); Color,Urine DK YELLOW (Yellow); Glucose,Urine (UA) Negative (Negative); Ketones,Urine Negative (Negative); Leukocyte Esterase,Urine Negative (Negative); Nitrate,Urine Negative (Negative); Protein,Urine Negative (Negative); Specific Gravity, Urine 1.025 (1.005-1.030); Urobilinogen,Urine 0.2 EU/dl (0.2)
[2020-08-06 11:09] LABS: Urine Pregnancy, HCG Qual. Negative (Negative)
[2020-08-06 11:16] LABS: RBC,Urine Occasional #/hpf (0-3); Squamous Epithelial Cell,Urine Occasional #/hpf (0-5); WBC,Urine Occasional #/hpf (0-3)
[2020-08-06 11:18] LABS: Basophils # 0.1 K/mm3 (0-0.2); Basophils % 1.1 % (0.1-2.0); Eosinophils # 0.1 K/mm3 (0.0-0.4); Eosinophils % 0.6 % (0.1-12.0); Hematocrit 40.5 % (37.0-47.0); Hemoglobin 13.7 g/dL (12.2-16.2); Lymphocytes # 1.9 K/mm3 (0.7-4.5); Lymphocytes % 21.9 % (10-50); Mean Corpuscular HGB Conc 33.7 g/dL (31.8-35.4); Mean Corpuscular Hemoglobin 30.4 pg (27.0-31.2); Mean Corpuscular Volume 90.3 fl (81-99); Mean Platelet Volume 7.6 fl (7.4-10.4); Monocytes # 0.3 K/mm3 (0.1-1.0); Monocytes % 3.8 % (1.7-9.3); Neutrophils # 6.3 K/mm3 (1.8-7.8); Neutrophils % 72.6 % (37.0-80.0); Platelet Count 256 K/mm3 (142-424); Red Blood Count 4.49 M/mm3 (4.20-5.40); Red Cell Distribution Width 13.8 % (11.5-17.5); White Blood Count 8.7 K/mm3 (4.8-10.8)
[2020-08-06 11:30] LABS: Chloride 105 mmol/L (98-107); Potassium 4.1 mmoL/L (3.5-5.1); Sodium 137 mmol/L (136-145)
[2020-08-06 11:32] LABS: Amylase 176 U/L (30-110)
[2020-08-06 11:33] LABS: Alanine Aminotransferase 25 U/L (12-78); Albumin Level 4.6 g/dl (3.5-5.0); Albumin/Globulin Ratio 1.6 (1.1-1.8); Alkaline Phosphatase 109 U/L (38-126); Anion Gap 12.1 mEq/L (5-15); Aspartate Amino Transferase 27 U/L (14-36); Bilirubin,Total 0.4 mg/dl (0.2-1.3); Blood Urea Nitrogen 15 mg/dl (7-17); Calcium 9.1 mg/dl (8.4-10.2); Carbon Dioxide 24 mmol/L (22.0-30.0); Creatinine Clearance Estimated 229 mL/min (50-200); Estimated Glomerular Filt Rate 142 ml/min (>60); GFR (African American) 172 ML/MIN (>60); Globulin 2.9 g/dL (1.3-3.2); Glucose 103 mg/dl (74-100); Total Protein,Serum 7.5 g/dl (6.3-8.2)
[2020-08-06 11:41] LABS: Lipase 1048 U/L (23-300)
--- NOTE | 2020-08-06 11:41 | PC.NURSE ---
notified ER of critical lipase
--- NOTE | 2020-08-06 11:47 | CT_ITS ---
PROCEDURE: CT ABDOMEN PELVIS WO CON CLINICAL INDICATION: pain Abdominal pain. Chronic pancreatitis. COMPARISON: CT CT ABDOMEN PELVIS W CON from 07/23/2020 TECHNIQUE: Axial images obtained with sagittal and coronal reformats. All CT scans at the facility use one or more dose reduction, viz: automated exposure control, ma/kV adjustment per patient size (including targeted exams where dose is matched to indication, i.e. head), or iterative reconstruction technique. FINDINGS: Lung bases show mild right basilar atelectasis versus less likely infiltrate. Previously noted nodule in the medial right breast is unchanged. No focal hepatic or splenic lesion. Gallbladder is surgically absent. Pancreas adrenal glands and kidneys are normal. No renal ureteral or bladder calculi. No CT evidence of obstructive uropathy. No upper abdominal lymphadenopathy. Abdominal aorta is normal. Appendix is normal. A few scattered air-fluid levels in the small bowel without dilated loops favoring changes of mild ileus or gastroenteritis. No free intraperitoneal air or fluid. Moderate amount of stool in the colon. No inguinal or femoral hernia. No iliac or inguinal chain lymphadenopathy. Small 2 centimeter left adnexal cyst. Bladder is normal. No acute bony abnormality. IMPRESSION: Mild right basilar atelectasis versus less likely infiltrate. A few scattered air-fluid levels in the small bowel without dilated loops treatment changes a mild ileus or gastroenteritis. No renal ureteral or bladder calculi. No CT evidence of obstructive uropathy. No free intraperitoneal air or fluid. 2 centimeter left adnexal cyst. Unchanged small nodule in the medial right breast. Prior cholecystectomy. Normal appendix. Dictated by: Napoleon Granados 08/06/2020 12:51 Napoleon Granados in OV 08/06/2020 12:51
--- NOTE | 2020-08-06 11:53 | PC.NURSE ---
Dr velazquez speaking with Dr Escobar at this time.
[2020-08-06 12:05] LABS: Coronavirus 19, PCR Not Detected (NotDetected); Influenza A, PCR Not Detected (NotDetected); Influenza B, PCR Not Detected (NotDetected)
--- NOTE | 2020-08-06 12:06 | HMH.EDABDPAI ---
ED Disposition Clinical Impression: Acute on chronic pancreatitis Disposition: Admitted As Inpatient Condition on Discharge: Fair Instructions: DI for Acute Abdominal Pain Referrals: Provider,Referral, [Primary Care Provider] - - Critical Care Critical Care Time: No Attestation: On 08/06/20, the high probability of a clinically significant, sudden or life threatening deterioration of the following system(s) required my full and direct attention, intervention and personal management. The time I documented below is in addition to time spent performing reported procedures but includes the following listed in this critical care notation. Medical Decision Making - Medical Records Medical records reviewed: Yes: I reviewed the patient's medical records. - Ramses Inquiry Pt receiving controlled substance: Yes Ramses was queried for this patient: No Reason not queried -: Emergent pt cond-no time Risks and benefits of using a controlled substance: were discussed with pt by me Vital Signs: 08/06/20 10:38 08/06/20 11:49 Pulse Rate 87 Pulse Rate [Radial] 102 H Respiratory Rate 16 Blood Pressure 138/77 Blood Pressure [Right Arm] 148/92 H Blood Pressure Mean [Right Arm] 110 Blood Pressure Position [Right Arm] Sitting 02 Sat by Pulse Oximetry 98 96 Oxygen Delivery Method Room Air - Lab Data Lab Results 08/06/20 10:40: Urine Color Dk yellow, Urine Appearance Clear, Urine pH 6.0, Ur Specific [place] 1.025, Urine Protein Negative, Urine Glucose (UA) Negative, Urine Ketones Negative, Urine Blood Negative, Urine Nitrate Negative, Urine Bilirubin Negative, Urine Urobilinogen 0.2, Ur Leukocyte Esterase Negative, Urine RBC Occasional, Urine WBC Occasional, Ur Squamous Epith Cells Occasional, Urine Bacteria None 08/06/20 10:40: Urine HCG, Qual Negative 08/06/20 11:04: WBC 8.7, RBC 4.49, Hgb 13.7, Hct 40.5, MCV 90.3, MCH 30.4, MCHC 33.7, RDW 13.8, Plt Count 256, MPV 7.6, Neut % (Auto) 72.6, Lymph % (Auto) 21.9, [place] % (Auto) 3.8, Eos % (Auto) 0.6, Baso % (Auto) 1.1, Neut # (Auto) 6.3, Lymph # (Auto) 1.9, [place] # (Auto) 0.3, Eos # (Auto) 0.1, Baso # (Auto) 0.1 08/06/20 11:04: Sodium 137, Potassium 4.1, Chloride 105, Carbon Dioxide 24, Anion Gap 12.1, BUN 15 D, Creatinine 0.50 L, Estimated Creat Clear 229, Estimated GFR 142, Est GFR ( Amer) 172 D, Glucose 103 H, Calcium 9.1, Total Bilirubin 0.4, AST 27, ALT 25, Alkaline Phosphatase 109, Total Protein 7.5, Albumin 4.6, Globulin 2.9, Albumin/Globulin Ratio 1.6, Amylase 176 H, Lipase 1048 H Result diagrams: 08/06/20 11:04 08/06/20 11:04 Orders (Tests/Meds): ED MEDICATIONS Discontinued Medications Generic Name Dose Route Start Last Admin Trade Name Freq PRN Reason Stop Dose Admin Hydromorphone HCl 1 mg 08/06/20 11:41 08/06/20 11:45 Hydromorphone 2mg/Ml Syringe IV 08/06/20 11:42 1 mg ONCE ONE Administration Sodium Chloride 1,000 mls @ 999 mls/hr 08/06/20 11:00 08/06/20 11:10 Sod Chlor 0.9% 1000ml Bag IV 08/06/20 12:00 999 mls/hr .Q1H1M INO Administration Ketorolac Tromethamine 30 mg 08/06/20 10:57 08/06/20 11:10 Ketorolac 30mg/Ml Vial IV 08/06/20 10:58 30 mg ONCE ONE Administration Promethazine HCl 25 mg 08/06/20 10:57 08/06/20 11:10 Promethazine Hcl 25mg/Ml 1ml Vial IV 08/06/20 10:58 25 mg ONCE ONE Administration Sodium Chloride 25 ml 08/06/20 10:57 08/06/20 11:10 Sodium Chloride 0.9% 25ml Bag IV 08/06/20 10:58 25 ml ONCE ONE Administration ORDERS Category Date Time Status CT abdomen pelvis wo con Stat Cat Scan 08/06/20 11:47 Ordered Rapid PCR Covid and Flu A/B Stat Lab 08/06/20 11:55 Received - Reevaluation(s) Time: 12:08 Reevaluation #1: Patient does have significantly elevated lipase. Patient provided further analgesics and fluid bolus. Patient be admitted to hospital for further evaluation and treatment. Medical Decision Narrative: 34-year-old female presented to
--- NOTE | 2020-08-06 12:15 | PC.NURSE ---
Pt to rad.
--- NOTE | 2020-08-06 12:57 | PC.NURSE ---
REPORT CALLED TO IAIN TARIQ. ROOM NEEDS TO BE CLEANED
--- NOTE | 2020-08-06 14:24 | HMH.PHAVTE ---
[facility] Pharmacy VTE Monitoring - Patient Demographics Admission date: 08/06/20 Report Date: 08/06/20 Time: 14:24 Allergies/Adverse Reactions: Patient Allergies morphine Allergy (Verified 08/06/20 10:50) tramadol Allergy (Verified 07/31/20 13:07) Height: 1.65 m Weight: 90.718 kg Patient Problems: Current Active Problems Acute on chronic pancreatitis (Acute) - VTE Risk Labs: VTE Related Lab Results Hgb 13.7 g/dL (12.2-16.2) 08/06/20 11:04 Hct 40.5 % (37.0-47.0) 08/06/20 11:04 Plt Count 256 K/mm3 (142-424) 08/06/20 11:04 BUN 15 mg/dl (7-17) D 08/06/20 11:04 Creatinine 0.50 mg/dl (0.52-1.04) L 08/06/20 11:04 Estimated Creat Clear 229 mL/min (50-200) 08/06/20 11:04 Was VTE Risk Assessment Performed: Yes VTE Score: 0 VTE Risk Level: Very Low Risk Clinical Trial Participant: No - Prophylaxis VTE Prophylaxis Ordered?: Yes Types of VTE Prophylaxis: TEDS Knee High, Pharmacological Pharmacologic Type: Enoxaparin
--- NOTE | 2020-08-06 14:50 | HMH.PHAINT ---
MEDICATION RECONCILIATION COMPLETED ON PATIENT USING EXTERNAL FILL HISTORY FROM PHARMACY AND DISCHARGE SUMMARY FROM PREVIOUS VISIT. -ERICKSON GRANGERD
--- NOTE | 2020-08-06 18:26 | PC.NURSE ---
PT IS RESTING IN BED. RECEIVED PAIN MEDICATION FOR DISCOMFORT. PT STATES HER PAIN IS LOCATED IN HER UPPER ABDOMEN. LUNG SOUNDS CLEAR. PT IS NPO FOR NOW. AMBULATING TO THE BATHROOM. VSS. WILL CONTINUE TO MONITOR.
--- NOTE | 2020-08-07 03:42 | PC.NURSE ---
Patient was A&O x4 upon assessment. She is independent upon ambulation as tolerated. Patient stated that the left side of her abdomen was tender upon auscultation. Lungs are clear throughout, bowel sounds where active. Patient reported pain upon assessment. MD mission assessment specialist notified for something in-between the dilaudid. Patient had reports of nausea during this shift, MD mission assessment specialist paged for PRN medication of promethazine ordered Q6H. Vitals are stable. Call light is within reach.
[2020-08-07 04:00] VITALS: BP 128/75; PULSE 57; RESP 16; TEMP 36.6; O2SAT 99
[2020-08-07 04:08] VITALS: BMI 34.5
[2020-08-07 06:23] LABS: Basophils # 0.1 K/mm3 (0-0.2); Basophils % 1.3 % (0.1-2.0); Eosinophils % 0.2 % (0.1-12.0); Hematocrit 35.8 % (37.0-47.0); Lymphocytes # 2.6 K/mm3 (0.7-4.5); Lymphocytes % 47.9 % (10-50); Mean Corpuscular HGB Conc 33.9 g/dL (31.8-35.4); Mean Corpuscular Hemoglobin 30.7 pg (27.0-31.2); Mean Corpuscular Volume 90.4 fl (81-99); Mean Platelet Volume 7.6 fl (7.4-10.4); Monocytes # 0.3 K/mm3 (0.1-1.0); Monocytes % 4.6 % (1.7-9.3); Neutrophils # 2.5 K/mm3 (1.8-7.8); Platelet Count 199 K/mm3 (142-424); Red Blood Count 3.96 M/mm3 (4.20-5.40); Red Cell Distribution Width 13.8 % (11.5-17.5); White Blood Count 5.5 K/mm3 (4.8-10.8)
[2020-08-07 06:26] LABS: Chloride 109 mmol/L (98-107); Sodium 138 mmol/L (136-145)
[2020-08-07 06:27] LABS: Potassium 3.9 mmoL/L (3.5-5.1)
[2020-08-07 06:29] LABS: Alanine Aminotransferase 18 U/L (12-78); Albumin Level 3.4 g/dl (3.5-5.0); Albumin/Globulin Ratio 1.3 (1.1-1.8); Alkaline Phosphatase 87 U/L (38-126); Anion Gap 7.9 mEq/L (5-15); Aspartate Amino Transferase 28 U/L (14-36); Bilirubin,Total 0.4 mg/dl (0.2-1.3); Blood Urea Nitrogen 10 mg/dl (7-17); Carbon Dioxide 25 mmol/L (22.0-30.0); Creatinine Clearance Estimated 238 mL/min (50-200); Estimated Glomerular Filt Rate 142 ml/min (>60); GFR (African American) 172 ML/MIN (>60); Globulin 2.6 g/dL (1.3-3.2)
[2020-08-07 06:30] LABS: Glucose 87 mg/dl (74-100)
[2020-08-07 06:59] LABS: Calcium 7.9 mg/dl (8.4-10.2)
[2020-08-07 07:04] LABS: Hemoglobin 12.1 g/dL (12.2-16.2)
[2020-08-07 08:00] VITALS: BP 116/77; PULSE 63; RESP 16; TEMP 36.5; O2SAT 97; O2SAT 99
[2020-08-07 08:24] LABS: Amylase 133 U/L (30-110); Lipase 532 U/L (23-300)
[2020-08-07 13:11] LABS: Amylase 102 U/L (30-110)
[2020-08-07 13:24] LABS: Lipase 178 U/L (23-300)
--- NOTE | 2020-08-07 15:57 | HMH.HPDC ---
General - General Admission date:: 08/06/20 Discharge date: 08/07/20 *Admission Date: 08/06/20 *Chief complaint: Abdominal Pain *History of present illness: 34-year-old female presented to the emergency department with complaints of abdominal pain and nausea for 2 days. Patient has a longstanding history of chronic pancreatitis she reports she has been having her usual pancreatic pain for about 2 days. She reports it increased over the weekend and was unbearable yesterday when she decided to come to the emergency department. She reports her pain is more epigastric and radiates to her back, she reports her pain is constant. She denies any alcohol use, chest pain, shortness of breath, fever/chills/body aches or vomiting/diarrhea [facility] History I have reviewed the patient's past medical history: Yes Medical History: Reports:: Anxiety, Hyperlipidemia Denies:: Cancer, Diabetes Mellitus Type 1, Diabetes Mellitus Type 2, MRSA, Seizures, Urinary Tract Infection *Have you ever received a pneumonia vaccine?: No *Have you received a flu vaccine this season?: No Other Medical History: Reports: Fibromyalgia. Denies: Thyroid Disease Other Surgeries: Yes: Cholecystectomy, Dilation and Curettage. No: Amputation: No Fractures: No - *Social History Smoking Status: Current every day smoker Tobacco Type: cigarettes # Packs/Day (cigarettes): 1 Alcohol Intake: former Alcohol Intake Frequency:: a few times a week Substance Use Type: marijuana *Occupational Status:: unemployed Housing: house Household Members: children *Travel in the last 8 weeks: None - Psychiatric History Pschychiatric History:: Reports:: Anxiety Family Hx:: No significant family history Review of Systems - Review of Systems Review of systems:: pertinent systems reviewed and negative unless documented below - Constitutional Denies fever(s), Denies headache(s) - Eyes Denies blurry vision, Denies double vision - ENT Denies abnormal hearing, Denies difficulty swallowing - *Cardiovascular Denies chest pain, Denies chest pain at rest - *Respiratory Denies change in phlegm color, Denies chest congestion - *Gastrointestinal Reports abdominal pain - *Musculoskeletal Denies joint pain, Denies muscle weakness - Integumentary/Breasts Denies change in skin color, Denies changing lesions - *Neurologic Denies headache(s) - Psychiatric Denies abnormal sleep pattern, Denies anxiety - Endocrine Denies cold intolerance, Denies heat intolerance - Hematologic/Lymphatic Denies easy bleeding, Denies easy bruising - Allergic/Immunologic Denies GI upset with certain foods, Denies throat swelling Exam Vital signs and Labs for Last 24 Hours: Temp Pulse Resp BP Pulse Ox 97.7 F 63 16 116/77 97 08/07/20 08:00 08/07/20 08:00 08/07/20 08:00 08/07/20 08:00 08/07/20 08:00 Laboratory Results - last 24 hr 08/07/20 05:44: WBC 5.5 D, RBC 3.96 L, Hgb 12.1 L D, Hct 35.8 L, MCV 90.4, MCH 30.7, MCHC 33.9, RDW 13.8, Plt Count 199, MPV 7.6, Neut % (Auto) 46.0, Lymph % (Auto) 47.9, [place] % (Auto) 4.6, Eos % (Auto) 0.2, Baso % (Auto) 1.3, Neut # (Auto) 2.5, Lymph # (Auto) 2.6, [place] # (Auto) 0.3, Eos # (Auto) 0.0, Baso # (Auto) 0.1 08/07/20 05:44: Sodium 138, Potassium 3.9, Chloride 109 H, Carbon Dioxide 25, Anion Gap 7.9, BUN 10 D, Creatinine 0.50 L, Estimated Creat Clear 238, Estimated GFR 142, Est GFR ( Amer) 172, Glucose 87, Calcium 7.9 L D, Total Bilirubin 0.4, AST 28, ALT 18 D, Alkaline Phosphatase 87, Total Protein 6.0 L, Albumin 3.4 L D, Globulin 2.6, Albumin/Globulin Ratio 1.3 08/07/20 05:44: Amylase 133 H D, Lipase 532 H 08/07/20 12:43: Amylase 102 D 08/07/20 12:43: Lipase 178 I & O for Last 24 hours: Intake & Output 08/04/20 08/05/20 08/06/20 08/07/20 23:59 23:59 23:59 23:59 Intake Total 0 / 0 2113 / 2114 Output Total 400 / 400 Balance 0 / 0 171 / 171 Weight 205 lb 6 oz 207 lb 6 oz - Constitutional
[2020-08-07 16:00] VITALS: BP 137/76; PULSE 65; RESP 16; TEMP 36.7; O2SAT 100
[2020-08-08 12:48] LABS: Hep A Ab, IgM Negative (Negative); Hepatitis B Core Antibody IgM Negative (Negative); Hepatitis B Surface Antigen Negative (Negative); Hepatitis C Antibody <0.1 s/co ratio (0.0-0.9)
== END 2020-08-07 17:55 | disposition home or self-care (01) ==
LOC: ER 12:09 → 2ND 15:35
PROVIDERS: Nurse Practitioner Family; Admitting Provider Family Medicine; Emergency Provider Emergency Medicine; Visit Provider Family Medicine
DX: K85.90 Acute pancreatitis without necrosis or infection, unspecified (principal); F17.210 Nicotine dependence, cigarettes, uncomplicated; M79.7 Fibromyalgia; R10.9 Unspecified abdominal pain; I10 Essential (primary) hypertension; Z79.899 Other long term (current) drug therapy
CPT/HCPCS: 36415; 74176; 80053; 80074; 81001; 81025; 82150; 83690; 85025; 96365; 96375; 96376; 99284; G0378; J2405; U0003

== ENCOUNTER 2020-08-09 12:50 | Emergency (ER) | payer BC, SELFPAY ==
[2020-08-09 12:51] VITALS: BP 134/85; PULSE 111; RESP 14; TEMP 36.8; O2SAT 97; BMI 33.3
--- NOTE | 2020-08-09 13:35 | HMH.EDABDPAI ---
ED Disposition Clinical Impression: Abdominal pain Qualifiers: Abdominal location: epigastric Qualified Code(s): R10.13 - Epigastric pain Disposition: Home, Self-Care Condition on Discharge: Good Instructions: DI for Chronic Pain -- Adult Additional Instructions: Follow-up with your pain clinic appointment at 245 directly following this visit. Return to the emergency department for fever, acute new concerns. - Critical Care Critical Care Time: No Attestation: On 08/09/20, the high probability of a clinically significant, sudden or life threatening deterioration of the following system(s) required my full and direct attention, intervention and personal management. The time I documented below is in addition to time spent performing reported procedures but includes the following listed in this critical care notation. Medical Decision Making - Medical Records Medical records reviewed: Yes: I reviewed the patient's medical records. - Ramses Inquiry Pt receiving controlled substance: No Vital Signs: 08/09/20 12:51 Temperature 98.3 F Temperature Source Oral Pulse Rate [Right] 111 H Respiratory Rate 14 Blood Pressure [Right Arm] 134/85 Blood Pressure Mean [Right Arm] 101 02 Sat by Pulse Oximetry 97 Oxygen Delivery Method Room Air - Lab Data Lab results reviewed: Yes: I reviewed the patient's lab results. Lab Results 08/09/20 13:21: WBC 7.6 D, RBC 4.43, Hgb 12.9, Hct 40.0, MCV 90.4, MCH 29.1, MCHC 32.2, RDW 13.3, Plt Count 227, MPV 8.1, Neut % (Auto) 73.4, Lymph % (Auto) 21.1, [place] % (Auto) 3.8, Eos % (Auto) 0.8, Baso % (Auto) 0.9, Neut # (Auto) 5.6, Lymph # (Auto) 1.6, [place] # (Auto) 0.3, Eos # (Auto) 0.1, Baso # (Auto) 0.1 08/09/20 14:01: Sodium 138, Potassium 4.2, Chloride 107, Carbon Dioxide 22, Anion Gap 13.2, BUN 5 L D, Creatinine 0.50 L, Estimated Creat Clear 229, Estimated GFR 142, Est GFR ( Amer) 172, Glucose 100, Total Bilirubin 0.5, AST 40 H D, ALT 30 D, Alkaline Phosphatase 91, Total Protein 7.0, Albumin 4.2, Globulin 2.8, Albumin/Globulin Ratio 1.5, Lipase 124 Result diagrams: 08/09/20 13:21 08/09/20 14:01 Orders (Tests/Meds): ED MEDICATIONS Discontinued Medications Generic Name Dose Route Start Last Admin Trade Name Karen PRN Reason Stop Dose Admin Sodium Chloride 1,000 mls @ 999 mls/hr 08/09/20 13:00 08/09/20 13:20 Sod Chlor 0.9% 1000ml Bag IV 08/09/20 14:00 999 mls/hr .Q1H1M INO Administration Ketorolac Tromethamine 30 mg 08/09/20 12:58 08/09/20 13:22 Ketorolac 30mg/Ml Vial IV 08/09/20 12:59 30 mg ONCE ONE Administration Ondansetron HCl 4 mg 08/09/20 12:58 08/09/20 13:21 Ondansetron 4mg/2ml Vial IV 08/09/20 12:59 4 mg ONCE ONE Administration Prochlorperazine Edisylate 10 mg 08/09/20 13:47 08/09/20 14:03 Prochlorperazine 10mg/2ml Vial IV 08/09/20 13:48 10 mg ONCE ONE Administration ORDERS Category Date Time Status Comprehensive Metabolic Panel Stat Lab 08/09/20 14:01 Results Lipase Stat Lab 08/09/20 14:01 Results Medical Decision Narrative: Patient here just 2 days after recent admission. I have called over to the pain clinic and have spoken with Dr. Castellon's WATER TECHNICIAN, with whom the patient has an appointment at 2:45 PM, and just about 1 hour. Patient stated that she could not wait, so presents to the ED. The nurse practitioner stated that the patient has been calling frequently to the clinic requesting oral pain medications even though she has on multiple instances been told that she cannot be on oral pain medications and be considered for a pain pump trial. They are concerned about her multiple requests asking for narcotics and at this point are asking for a psych eval for the pain pump. Patient did previously take oral pain medications regularly for her chronic pancreatitis pain. I have given the patient Toradol, Zofran and Compazine. She has no vomiting here. Heart rate 86 on my exam and she is normotensive. Suspect sig
--- NOTE | 2020-08-09 13:35 | PC.NURSE ---
Dr. Lorenzana consulted Dr. Castellon
[2020-08-09 13:41] LABS: Basophils # 0.1 K/mm3 (0-0.2); Basophils % 0.9 % (0.1-2.0); Eosinophils # 0.1 K/mm3 (0.0-0.4); Eosinophils % 0.8 % (0.1-12.0); Hemoglobin 12.9 g/dL (12.2-16.2); Lymphocytes # 1.6 K/mm3 (0.7-4.5); Lymphocytes % 21.1 % (10-50); Mean Corpuscular HGB Conc 32.2 g/dL (31.8-35.4); Mean Corpuscular Hemoglobin 29.1 pg (27.0-31.2); Mean Corpuscular Volume 90.4 fl (81-99); Mean Platelet Volume 8.1 fl (7.4-10.4); Monocytes # 0.3 K/mm3 (0.1-1.0); Monocytes % 3.8 % (1.7-9.3); Neutrophils # 5.6 K/mm3 (1.8-7.8); Neutrophils % 73.4 % (37.0-80.0); Platelet Count 227 K/mm3 (142-424); Red Blood Count 4.43 M/mm3 (4.20-5.40); Red Cell Distribution Width 13.3 % (11.5-17.5); White Blood Count 7.6 K/mm3 (4.8-10.8)
[2020-08-09 14:13] LABS: Chloride 107 mmol/L (98-107); Sodium 138 mmol/L (136-145)
[2020-08-09 14:14] LABS: Potassium 4.2 mmoL/L (3.5-5.1)
[2020-08-09 14:16] LABS: Alanine Aminotransferase 30 U/L (12-78); Albumin Level 4.2 g/dl (3.5-5.0); Albumin/Globulin Ratio 1.5 (1.1-1.8); Alkaline Phosphatase 91 U/L (38-126); Anion Gap 13.2 mEq/L (5-15); Aspartate Amino Transferase 40 U/L (14-36); Bilirubin,Total 0.5 mg/dl (0.2-1.3); Blood Urea Nitrogen 5 mg/dl (7-17); Carbon Dioxide 22 mmol/L (22.0-30.0); Creatinine Clearance Estimated 229 mL/min (50-200); Estimated Glomerular Filt Rate 142 ml/min (>60); GFR (African American) 172 ML/MIN (>60); Globulin 2.8 g/dL (1.3-3.2); Glucose 100 mg/dl (74-100); Lipase 124 U/L (23-300)
[2020-08-09 14:34] VITALS: BP 132/74; PULSE 78; RESP 16; TEMP 36.6; O2SAT 98
[2020-08-09 15:47] LABS: Calcium 9.3 mg/dl (8.4-10.2)
== END 2020-08-09 14:35 | disposition home or self-care (01) ==
PROVIDERS: Emergency Provider Emergency Medicine; PCP Family Medicine
DX: R10.13 Epigastric pain (principal); K86.1 Other chronic pancreatitis; E78.5 Hyperlipidemia, unspecified; M79.7 Fibromyalgia; F41.9 Anxiety disorder, unspecified; Z79.899 Other long term (current) drug therapy
CPT/HCPCS: 36415; 80053; 83690; 85025; 96365; 96375; 99282; J2405

== ENCOUNTER → 2020-08-09 14:40 | Outpatient (POV) | payer BC, SELFPAY ==
[2020-08-09 15:13] VITALS: BP 144/96; PULSE 84; RESP 20; O2SAT 96; BMI 33.3
--- NOTE | 2020-08-10 07:51 | HMH.PAINSOAP ---
[facility] Pain Management SOAP Note Subjective:: Patient is a 34-year-old white female who presents today into the clinic at our request to return to the clinic. Patient is being treated in our clinic for pancreatitis. She was initially seen inpatient for acute flareup of pancreatitis. She has had multiple inpatient visits to the ER. Our clinic was contacted 3 times this week regarding her ER visits along with her mother contacting the clinic requesting oral medications with the patient. At the patient's last visit, she and I had a long discussion concerning her medication regimen. Patient I discussed that we would not prescribe oral medications for pancreatitis, however, did discuss intrathecal therapy. Unfortunately, the patient has returned to the ER wearing more time since her initial hospital visit with us. Patient says that she is having nonstop flareups. I did discuss the patient's condition with Dr. Sheth today. Dr. Bauman and I also discussed the patient in detail earlier in the week as well as today. There is concern that the patient will not have realistic expectations of the intrathecal pump. Patient I have had a long discussion concerning this. At the last visit she understood that she would not be able to trial an intrathecal pain pump if she was taking oral medications. Patient says that she has not requested any type of oral medications inpatient or outpatient. She did, however, request oral medications with just at her initial visit in the clinic. She did inquire about oral medication when she was initially seen inpatient. Patient does seem to be having acute flareups on a daily basis. She is returning to the ER frequently. She was discharged from the ER today, given Toradol, and sent to our clinic for her appointment.. Patient says that she was told by the emergency room that we advised the team to not prescribe or treat with any type of intravenous, intramuscular, or oral medications. Patient and I had a very long discussion that her acute status will be managed by an inpatient team and not our clinic. She understands that we will not be able to provide her with any type of oral medications for treatment until she undergoes a psychological evaluation. Review of Systems General: No recent weight changes, no fever, no sleep disturbances Respiratory: No cough, no shortness of air, no recurring pulmonary infections Cardiovascular/peripheral vascular: No chest pain, no palpitations, no edema, no shortness of breath Gastrointestinal: No new onset incontinence, normal bowel movements reported, chronic abdominal pain Genitourinary: No new onset incontinence Musculoskeletal: No pain Psychiatric: Normal mood/affect Neurological: [Denies weakness in extremities], [denies balance issues] Objective:: Physical exam General: Alert and oriented x3, no acute distress, upset and cooperative, [on room air] Lungs: Respirations even and unlabored, symmetrical chest expansion Eyes: PERRL Gastrointestinal: Abdomen tender to palpation Musculoskeletal: Flexion and extension of [] spin nonguardede , deep tendon reflexes normal, strength in upper and lower extremities [5/5], normal gait noted Neurological: Speech clear, machine tool mechanic equal, no gross sensory deficit Assessment:: Acute on chronic pancreatitis Plan:: Patient and I had a very long discussion today concerning realistic expectation of the intrathecal pump. I am concerned the patient will not pass her psychological evaluation. I do feel the patient likely has unrealistic goals with the intrathecal pump. We will, however, continue with a psychological evaluation to see if she is appropriate. If she is appropriate, we will proceed with trialing the patient with intrathecal therapy. Patient has been advised once again that we will not provide her with oral medications. Patient has been advised that her family has been contacting the clinic for oral medications. She does say that
== END ==
PROVIDERS: Visit Provider Clinical Nurse Specialist Family Health
DX: K86.1 Other chronic pancreatitis (principal); K85.80 Other acute pancreatitis without necrosis or infection
CPT/HCPCS: 99212; G0463

== ENCOUNTER 2020-08-12 16:48 | Emergency (ER) | payer BC, SELFPAY ==
[2020-08-12 16:49] VITALS: BP 129/85; PULSE 90; RESP 16; TEMP 36.7; O2SAT 98; BMI 31.3
[2020-08-12 17:01] LABS: Appearance,Urine CLEAR (Clear); Bilirubin,Urine Negative (Negative); Blood, Urine Negative (Negative); Color,Urine YELLOW (Yellow); Glucose,Urine (UA) Negative (Negative); Ketones,Urine Negative (Negative); Leukocyte Esterase,Urine Negative (Negative); Microscopic, Urine URINE MICROSCOPIC (MICROSCOPIC); Nitrate,Urine Negative (Negative); PH,Urine 6.5 (5.0-8.5); Protein,Urine Negative (Negative); Specific Gravity, Urine 1.015 (1.005-1.030); Urobilinogen,Urine 0.2 EU/dl (0.2)
[2020-08-12 17:06] LABS: Squamous Epithelial Cell,Urine Occasional #/hpf (0-5)
--- NOTE | 2020-08-12 17:10 | HMH.EDABDPAI ---
ED Disposition Clinical Impression: Chronic pancreatitis Qualifiers: Pancreatitis type: unspecified pancreatitis type Qualified Code(s): K86.1 - Other chronic pancreatitis Disposition: Home, Self-Care Condition on Discharge: Fair Instructions: DI for Acute Abdominal Pain Referrals: Elmo Escobar MD [Primary Care Provider] - - Critical Care Critical Care Time: No Attestation: On 08/12/20, the high probability of a clinically significant, sudden or life threatening deterioration of the following system(s) required my full and direct attention, intervention and personal management. The time I documented below is in addition to time spent performing reported procedures but includes the following listed in this critical care notation. Medical Decision Making - Medical Records Medical records reviewed: Yes: I reviewed the patient's medical records. - Ramses Inquiry Pt receiving controlled substance: No Ramses was queried for this patient: Yes Reference #:: [id number] Vital Signs: 08/12/20 16:49 08/12/20 17:30 08/12/20 18:12 Temperature 98.1 F Temperature Source Oral Pulse Rate 76 71 Pulse Rate [Radial] 90 Respiratory Rate 16 18 18 Blood Pressure 129/81 141/87 H Blood Pressure [Right Arm] 129/85 Blood Pressure Mean [Right Arm] 99 Blood Pressure Position [Right Arm] Sitting 02 Sat by Pulse Oximetry 98 99 99 Oxygen Delivery Method Room Air - Lab Data Lab results reviewed: Yes: I reviewed the patient's lab results. Lab Results 08/12/20 16:55: Urine Color Yellow, Urine Appearance Clear, Urine pH 6.5, Ur Specific [place] 1.015, Urine Protein Negative, Urine Glucose (UA) Negative, Urine Ketones Negative, Urine Blood Negative, Urine Nitrate Negative, Urine Bilirubin Negative, Urine Urobilinogen 0.2, Ur Leukocyte Esterase Negative, Urine RBC None, Urine WBC None, Ur Squamous Epith Cells Occasional, Urine Bacteria None 08/12/20 16:55: Urine Opiates Screen Positive H, Urine Methadone Screen Negative, Ur Barbituates Screen Negative, Ur Phencyclidine Scrn Negative, Ur Amphetamines Screen Negative, U Benzodiazepines Scrn Positive H, Urine Cocaine Screen Negative, U Marijuana (THC) Screen Positive H 08/12/20 17:21: WBC 6.6, RBC 4.48, Hgb 13.3, Hct 40.0, MCV 89.4, MCH 29.8, MCHC 33.3, RDW 13.7, Plt Count 195, MPV 9.3, Neut % (Auto) 61.7, Lymph % (Auto) 30.9, [place] % (Auto) 5.5, Eos % (Auto) 0.2, Baso % (Auto) 1.7, Neut # (Auto) 4.1, Lymph # (Auto) 2.0, [place] # (Auto) 0.4, Eos # (Auto) 0.0, Baso # (Auto) 0.1 08/12/20 17:21: Sodium 139, Potassium 4.2, Chloride 100, Carbon Dioxide 28, Anion Gap 15.2 H, BUN 7, Creatinine 0.50 L, Estimated Creat Clear 229, Estimated GFR 142, Est GFR ( Amer) 172, Glucose 101 H, Calcium 9.5, Total Bilirubin 0.3, AST 55 H, ALT 47, Alkaline Phosphatase 88, Total Protein 7.0, Albumin 4.4, Globulin 2.6, Albumin/Globulin Ratio 1.7 08/12/20 17:21: Serum HCG, Qual Negative 08/12/20 17:21: Lactate 1.7 08/12/20 17:21: Lipase 428 H Result diagrams: 08/12/20 17:21 08/12/20 17:21 Orders (Tests/Meds): ED MEDICATIONS Generic Name Dose Route Start Last Admin Trade Name Freq PRN Reason Stop Dose Admin Sodium Chloride 1,000 mls @ 999 mls/hr 08/12/20 17:15 08/12/20 17:25 Sod Chlor 0.9% 1000ml Bag IV 08/12/20 18:15 999 mls/hr .Q1H1M INO Administration Sodium Chloride 10 ml 08/12/20 17:09 08/12/20 17:26 Sodium Chloride 0.9% 10ml Vial IV 09/11/20 17:08 10 ml NEEDED PRN Administration dilute protonix Discontinued Medications Generic Name Dose Route Start Last Admin Trade Name Freq PRN Reason Stop Dose Admin Dicyclomine HCl 20 mg 08/12/20 17:08/12/20 17:25 Dicyclomine 20 Mg/2ml Vial IM 08/12/20 17:10 20 mg ONCE ONE Administration Ketorolac Tromethamine 30 mg 08/12/20 17:09 08/12/20 17:25 Ketorolac 30mg/Ml Vial IV 08/12/20 17:10 30 mg ONCE ONE Administration Pantoprazole Sodium 40 mg 08/12/20 17:09 08/12/20 17:24 Pantoprazole
[2020-08-12 17:14] LABS: Amphetamine/Metha Screen,Urine Negative ng/ml (<1000); Benzodiazepines Screen,Urine Positive ng/ml (<200)
[2020-08-12 17:15] LABS: Barbiturates Screen,Urine Negative ng/ml (<200)
[2020-08-12 17:16] LABS: Cannabinoid Screen,Urine Positive ng/ml (<50); Cocaine Screen,Urine Negative ng/ml (<300)
[2020-08-12 17:17] LABS: Methadone Screen,Urine Negative ng/ml (<300); Opiate Screen,Urine Positive ng/ml (<300)
[2020-08-12 17:18] LABS: Phencyclidine Screen,Urine Negative ng/ml (<25)
[2020-08-12 17:30] VITALS: BP 129/81; PULSE 76; RESP 18; O2SAT 99
--- NOTE | 2020-08-12 18:08 | PC.NURSE ---
AUTHORIZATION FOR MEDICAL RECORDS FROM [facility] FAXED
[2020-08-12 18:12] VITALS: BP 141/87; PULSE 71; RESP 18; O2SAT 99
[2020-08-12 18:18] LABS: Basophils # 0.1 K/mm3 (0-0.2); Basophils % 1.7 % (0.1-2.0); Eosinophils % 0.2 % (0.1-12.0); Hemoglobin 13.3 g/dL (12.2-16.2); Lymphocytes % 30.9 % (10-50); Mean Corpuscular HGB Conc 33.3 g/dL (31.8-35.4); Mean Corpuscular Hemoglobin 29.8 pg (27.0-31.2); Mean Corpuscular Volume 89.4 fl (81-99); Mean Platelet Volume 9.3 fl (7.4-10.4); Monocytes # 0.4 K/mm3 (0.1-1.0); Monocytes % 5.5 % (1.7-9.3); Neutrophils # 4.1 K/mm3 (1.8-7.8); Neutrophils % 61.7 % (37.0-80.0); Platelet Count 195 K/mm3 (142-424); Red Blood Count 4.48 M/mm3 (4.20-5.40); Red Cell Distribution Width 13.7 % (11.5-17.5); White Blood Count 6.6 K/mm3 (4.8-10.8)
[2020-08-12 18:22] LABS: Chloride 100 mmol/L (98-107); HCG Qualitative, Serum Negative (Negative); Potassium 4.2 mmoL/L (3.5-5.1); Sodium 139 mmol/L (136-145)
[2020-08-12 18:24] LABS: Lipase 428 U/L (23-300)
[2020-08-12 18:25] LABS: Alanine Aminotransferase 47 U/L (12-78); Albumin Level 4.4 g/dl (3.5-5.0); Albumin/Globulin Ratio 1.7 (1.1-1.8); Alkaline Phosphatase 88 U/L (38-126); Anion Gap 15.2 mEq/L (5-15); Aspartate Amino Transferase 55 U/L (14-36); Bilirubin,Total 0.3 mg/dl (0.2-1.3); Blood Urea Nitrogen 7 mg/dl (7-17); Calcium 9.5 mg/dl (8.4-10.2); Carbon Dioxide 28 mmol/L (22.0-30.0); Creatinine Clearance Estimated 229 mL/min (50-200); Estimated Glomerular Filt Rate 142 ml/min (>60); GFR (African American) 172 ML/MIN (>60); Globulin 2.6 g/dL (1.3-3.2); Glucose 101 mg/dl (74-100); Lactic Acid 1.7 mmol/L (0.7-2.1)
[2020-08-12 18:36] VITALS: BP 137/92; PULSE 82; RESP 14; TEMP 36.6; O2SAT 98
== END 2020-08-12 18:42 | disposition home or self-care (01) ==
PROVIDERS: Emergency Provider Emergency Medicine; PCP Family Medicine
DX: K86.1 Other chronic pancreatitis (principal); F41.9 Anxiety disorder, unspecified; E78.5 Hyperlipidemia, unspecified; F17.210 Nicotine dependence, cigarettes, uncomplicated
CPT/HCPCS: 80053; 80305; 81001; 83605; 83690; 84703; 85025; 96365; 96372; 96375; 99282

== ENCOUNTER 2020-08-14 12:55 | Emergency (ER) | payer BC, SELFPAY ==
[2020-08-14 12:56] VITALS: BP 133/91; PULSE 103; RESP 18; TEMP 37; O2SAT 98; BMI 33.3
[2020-08-14 13:46] LABS: Microscopic, Urine URINE MICROSCOPIC (MICROSCOPIC)
[2020-08-14 13:51] LABS: Appearance,Urine CLEAR (Clear); Bilirubin,Urine Negative (Negative); Blood, Urine Negative (Negative); Color,Urine YELLOW (Yellow); Glucose,Urine (UA) Negative (Negative); Ketones,Urine Negative (Negative); Leukocyte Esterase,Urine Negative (Negative); Nitrate,Urine Negative (Negative); PH,Urine 7.5 (5.0-8.5); Protein,Urine Negative (Negative); Urobilinogen,Urine 0.2 EU/dl (0.2)
[2020-08-14 13:52] LABS: Urine Pregnancy, HCG Qual. Negative (Negative)
[2020-08-14 14:00] VITALS: BP 133/91; PULSE 93; RESP 20; O2SAT 97
[2020-08-14 14:04] LABS: RBC,Urine Occasional #/hpf (0-3); WBC,Urine Occasional #/hpf (0-3)
[2020-08-14 14:08] LABS: Basophils # 0.1 K/mm3 (0-0.2); Basophils % 1.2 % (0.1-2.0); Eosinophils % 0.2 % (0.1-12.0); Hematocrit 37.8 % (37.0-47.0); Hemoglobin 13.1 g/dL (12.2-16.2); Lymphocytes # 1.9 K/mm3 (0.7-4.5); Lymphocytes % 27.5 % (10-50); Mean Corpuscular HGB Conc 34.6 g/dL (31.8-35.4); Mean Corpuscular Hemoglobin 30.2 pg (27.0-31.2); Mean Corpuscular Volume 87.2 fl (81-99); Mean Platelet Volume 8.2 fl (7.4-10.4); Monocytes # 0.3 K/mm3 (0.1-1.0); Monocytes % 4.9 % (1.7-9.3); Neutrophils # 4.6 K/mm3 (1.8-7.8); Neutrophils % 66.2 % (37.0-80.0); Platelet Count 192 K/mm3 (142-424); Red Blood Count 4.33 M/mm3 (4.20-5.40); Red Cell Distribution Width 13.5 % (11.5-17.5)
[2020-08-14 14:19] LABS: Chloride 102 mmol/L (98-107); Sodium 138 mmol/L (136-145)
[2020-08-14 14:20] LABS: Potassium 4.5 mmoL/L (3.5-5.1)
[2020-08-14 14:22] LABS: Alanine Aminotransferase 40 U/L (12-78); Alkaline Phosphatase 89 U/L (38-126); Anion Gap 13.5 mEq/L (5-15); Aspartate Amino Transferase 34 U/L (14-36); Bilirubin,Total 0.3 mg/dl (0.2-1.3); Blood Urea Nitrogen 10 mg/dl (7-17); Carbon Dioxide 27 mmol/L (22.0-30.0); Creatinine Clearance Estimated 229 mL/min (50-200); Estimated Glomerular Filt Rate 142 ml/min (>60); GFR (African American) 172 ML/MIN (>60); Lipase 187 U/L (23-300)
--- NOTE | 2020-08-14 14:22 | HMH.EDGENADL ---
ED Disposition Clinical Impression: Epigastric pain Disposition: Home, Self-Care Condition on Discharge: Good Instructions: DI for Acute Abdominal Pain Additional Instructions: Follow-up with your primary care doctor and Dr. Heller for further treatment. Referrals: Elmo Escobar MD [Primary Care Provider] - - Critical Care Critical Care Time: No Attestation: On 08/14/20, the high probability of a clinically significant, sudden or life threatening deterioration of the following system(s) required my full and direct attention, intervention and personal management. The time I documented below is in addition to time spent performing reported procedures but includes the following listed in this critical care notation. Medical Decision Making - Ramses Inquiry Pt receiving controlled substance: No Vital Signs: 08/14/20 12:56 08/14/20 14:00 Temperature 98.6 F Temperature Source Oral Pulse Rate 93 H Pulse Rate [Right Radial] 103 H Respiratory Rate 18 20 Blood Pressure 133/91 H Blood Pressure [Right Arm] 133/91 H Blood Pressure Mean 104 Blood Pressure Mean [Right Arm] 105 Blood Pressure Source [Right Arm] Automatic Cuff Blood Pressure Position [Right Arm] Sitting 02 Sat by Pulse Oximetry 98 97 Oxygen Delivery Method Room Air - Lab Data Lab Results 08/14/20 13:24: Urine Color Yellow, Urine Appearance Clear, Urine pH 7.5, Ur Specific [place] 1.010, Urine Protein Negative, Urine Glucose (UA) Negative, Urine Ketones Negative, Urine Blood Negative, Urine Nitrate Negative, Urine Bilirubin Negative, Urine Urobilinogen 0.2, Ur Leukocyte Esterase Negative, Urine RBC Occasional, Urine WBC Occasional, Ur Squamous Epith Cells 3-5, Urine Bacteria None 08/14/20 13:24: Urine HCG, Qual Negative 08/14/20 13:56: WBC 7.0, RBC 4.33, Hgb 13.1, Hct 37.8, MCV 87.2, MCH 30.2, MCHC 34.6, RDW 13.5, Plt Count 192, MPV 8.2, Neut % (Auto) 66.2, Lymph % (Auto) 27.5, [place] % (Auto) 4.9, Eos % (Auto) 0.2, Baso % (Auto) 1.2, Neut # (Auto) 4.6, Lymph # (Auto) 1.9, [place] # (Auto) 0.3, Eos # (Auto) 0.0, Baso # (Auto) 0.1 08/14/20 13:56: Sodium 138, Potassium 4.5, Chloride 102, Carbon Dioxide 27, Anion Gap 13.5, BUN 10 D, Creatinine 0.50 L, Estimated Creat Clear 229, Estimated GFR 142, Est GFR ( Amer) 172, Glucose 106 H, Calcium 9.4, Total Bilirubin 0.3, AST 34 D, ALT 40, Alkaline Phosphatase 89, Total Protein 7.4, Albumin 4.5, Globulin 2.9, Albumin/Globulin Ratio 1.6, Lipase 187 Result diagrams: 08/14/20 13:56 08/14/20 13:56 Medical Decision Narrative: I offered the patient Toradol and Zofran. She says that she has Zofran at home but it does not work, she still has nausea. She has been given Toradol on her last couple of emergency department visits, but she says it does not work. Despite the fact that she says they do not work she request to be given a dose of Toradol and Zofran while she is here. I have advised her that I would not prescribe opiates given the chronic nature of her symptomatology, the fact that she dropped out of pain management, the fact that her lipase is normal today. Advised her to follow-up with her primary care doctor and director of philanthropy for further evaluation and treatment. General Adult HPI - General Chief complaint: Abdominal Pain Stated complaint: stomach pain Time Seen by Provider: 08/14/20 14:23 Mode of Arrival: Ambulatory Limitations: No Limitations Description of Symptoms (Recalled from ER Triage Doc. by RN): Pt reports upper abd pain in epigastric area and LUQ pain that began this morning after eating. Pt reports hx of pancreatitis. Pt describes pain as stabbing in nature. Pt states I want my lipase checked . - History of Present Illness HPI narrative: The patient states that she has chronic pancreatitis. She says that she is having severe pancreas pain today and I am embarrassed to be here, but I just want my lipase checked . She says that she has put in a call to Dr. Heller, her
[2020-08-14 14:23] LABS: Albumin Level 4.5 g/dl (3.5-5.0); Albumin/Globulin Ratio 1.6 (1.1-1.8); Calcium 9.4 mg/dl (8.4-10.2); Globulin 2.9 g/dL (1.3-3.2); Glucose 106 mg/dl (74-100); Total Protein,Serum 7.4 g/dl (6.3-8.2)
[2020-08-14 15:11] VITALS: BP 142/94; PULSE 74; RESP 16; TEMP 37; O2SAT 97
== END 2020-08-14 15:11 | disposition home or self-care (01) ==
PROVIDERS: Emergency Provider Emergency Medicine; PCP Family Medicine
DX: R10.13 Epigastric pain (principal); K86.1 Other chronic pancreatitis; E78.5 Hyperlipidemia, unspecified; F41.9 Anxiety disorder, unspecified; F17.210 Nicotine dependence, cigarettes, uncomplicated; Z79.899 Other long term (current) drug therapy
CPT/HCPCS: 80053; 81001; 81025; 83690; 85025; 96374; 96375; 99282; J2405

== ENCOUNTER 2020-08-14 19:16 | Observation (INO) | payer BC, SELFPAY ==
[2020-08-14] VITALS (13 sets, daily range): BP systolic 95–156; BP diastolic 59–102; PULSE 64–108; RESP 16; TEMP 36.6–37.1; O2SAT 96–100; BMI 33.3; BMI 34.4
[2020-08-14 19:41] LABS: Basophils # 0.1 K/mm3 (0-0.2); Eosinophils % 0.2 % (0.1-12.0); Hematocrit 39.6 % (37.0-47.0); Hemoglobin 13.6 g/dL (12.2-16.2); Lymphocytes # 2.6 K/mm3 (0.7-4.5); Lymphocytes % 34.6 % (10-50); Mean Corpuscular HGB Conc 34.4 g/dL (31.8-35.4); Mean Corpuscular Hemoglobin 29.9 pg (27.0-31.2); Mean Corpuscular Volume 86.8 fl (81-99); Mean Platelet Volume 8.2 fl (7.4-10.4); Monocytes # 0.4 K/mm3 (0.1-1.0); Monocytes % 4.9 % (1.7-9.3); Neutrophils # 4.5 K/mm3 (1.8-7.8); Neutrophils % 59.3 % (37.0-80.0); Platelet Count 211 K/mm3 (142-424); Red Blood Count 4.56 M/mm3 (4.20-5.40); Red Cell Distribution Width 13.8 % (11.5-17.5); White Blood Count 7.7 K/mm3 (4.8-10.8)
[2020-08-14 19:44] LABS: Chloride 101 mmol/L (98-107)
[2020-08-14 19:45] LABS: Potassium 4.4 mmoL/L (3.5-5.1); Sodium 137 mmol/L (136-145)
[2020-08-14 19:47] LABS: Alanine Aminotransferase 42 U/L (12-78); Amylase 172 U/L (30-110); Aspartate Amino Transferase 33 U/L (14-36); Blood Urea Nitrogen 9 mg/dl (7-17); Creatinine Clearance Estimated 191 mL/min (50-200); Estimated Glomerular Filt Rate 115 ml/min (>60); GFR (African American) 139 ML/MIN (>60)
[2020-08-14 19:48] LABS: Albumin Level 4.7 g/dl (3.5-5.0); Albumin/Globulin Ratio 1.5 (1.1-1.8); Alkaline Phosphatase 92 U/L (38-126); Anion Gap 16.4 mEq/L (5-15); Bilirubin,Total 0.3 mg/dl (0.2-1.3); Calcium 9.8 mg/dl (8.4-10.2); Carbon Dioxide 24 mmol/L (22.0-30.0); Globulin 3.1 g/dL (1.3-3.2); Glucose 99 mg/dl (74-100); Total Protein,Serum 7.8 g/dl (6.3-8.2)
[2020-08-14 19:49] LABS: Lipase 991 U/L (23-300)
--- NOTE | 2020-08-14 20:42 | HMH.EDNVD ---
ED Disposition Clinical Impression: Acute pancreatitis Qualifiers: Pancreatitis type: unspecified pancreatitis type Acute pancreatitis complication: no infection or necrosis Qualified Code(s): K85.90 - Acute pancreatitis without necrosis or infection, unspecified Disposition: Admitted as Observation Condition on Discharge: Good Instructions: DI for Acute Abdominal Pain Referrals: Elmo Escobar MD [Primary Care Provider] - - Critical Care Critical Care Time: No Attestation: On 08/14/20, the high probability of a clinically significant, sudden or life threatening deterioration of the following system(s) required my full and direct attention, intervention and personal management. The time I documented below is in addition to time spent performing reported procedures but includes the following listed in this critical care notation. Medical Decision Making - Medical Records Medical records reviewed: Yes: I reviewed the patient's medical records. - Ramses Inquiry Pt receiving controlled substance: No Vital Signs: 08/14/20 19:18 08/14/20 19:52 08/14/20 20:23 Temperature 98.6 F Temperature Source Oral Pulse Rate 95 H 90 Pulse Rate [Left Radial] 101 H Respiratory Rate 16 Blood Pressure 156/102 H 113/93 H Blood Pressure [Right Arm] 140/95 H Blood Pressure Mean [Right Arm] 110 Blood Pressure Source [Right Arm] Automatic Cuff Blood Pressure Position [Right Arm] Sitting 02 Sat by Pulse Oximetry 98 98 96 Oxygen Delivery Method Room Air 08/14/20 20:31 Temperature Temperature Source Pulse Rate 108 H Pulse Rate [Left Radial] Respiratory Rate Blood Pressure 140/95 H Blood Pressure [Right Arm] Blood Pressure Mean [Right Arm] Blood Pressure Source [Right Arm] Blood Pressure Position [Right Arm] 02 Sat by Pulse Oximetry 97 Oxygen Delivery Method - Lab Data Lab results reviewed: Yes: I reviewed the patient's lab results. Lab Results 08/14/20 19:33: WBC 7.7, RBC 4.56, Hgb 13.6, Hct 39.6, MCV 86.8, MCH 29.9, MCHC 34.4, RDW 13.8, Plt Count 211, MPV 8.2, Neut % (Auto) 59.3, Lymph % (Auto) 34.6, [place] % (Auto) 4.9, Eos % (Auto) 0.2, Baso % (Auto) 1.0, Neut # (Auto) 4.5, Lymph # (Auto) 2.6, [place] # (Auto) 0.4, Eos # (Auto) 0.0, Baso # (Auto) 0.1 08/14/20 19:33: Sodium 137, Potassium 4.4, Chloride 101, Carbon Dioxide 24, Anion Gap 16.4 H, BUN 9, Creatinine 0.60, Estimated Creat Clear 191, Estimated GFR 115, Est GFR ( Amer) 139, Glucose 99, Calcium 9.8, Total Bilirubin 0.3, AST 33, ALT 42, Alkaline Phosphatase 92, Total Protein 7.8, Albumin 4.7, Globulin 3.1, Albumin/Globulin Ratio 1.5, Amylase 172 H, Lipase 991 H 08/14/20 19:33: Plasma/Serum Alcohol < 10 Result diagrams: 08/14/20 19:33 08/14/20 19:33 Orders (Tests/Meds): ED MEDICATIONS Generic Name Dose Route Start Last Admin Trade Name Freq PRN Reason Stop Dose Admin Sodium Chloride 1,000 mls @ 999 mls/hr 08/14/20 21:00 08/14/20 21:05 Sod Chlor 0.9% 1000ml Bag IV 08/14/20 22:00 999 mls/hr .Q1H1M INO Administration Discontinued Medications Generic Name Dose Route Start Last Admin Trade Name Freq PRN Reason Stop Dose Admin Ketorolac Tromethamine 30 mg 08/14/20 21:01 08/14/20 21:06 Ketorolac 30mg/Ml Vial IV 08/14/20 21:02 30 mg ONCE ONE Administration Promethazine HCl 25 mg 08/14/20 21:01 08/14/20 21:06 Promethazine Hcl 25mg/Ml 1ml Vial IV 08/14/20 21:02 25 mg ONCE ONE Administration Sodium Chloride 25 ml 08/14/20 21:01 08/14/20 21:06 Sodium Chloride 0.9% 25ml Bag IV 08/14/20 21:02 25 ml ONCE ONE Administration - Physician Consults Physician Consulted: bradley Reason -: Admission - Reevaluation(s) Time: 22:26 Reevaluation #1: still with pain Medical Decision Narrative: pt with ongoing abd pain and lipase Nausea/Vomiting/Diarrhea HPI - General Chief complaint: Abdominal Pain Stated complaint: Abd&back pain,vomiting Time Seen by Provider: 08/14/20 20:00
[2020-08-14 21:08] LABS: Ethyl Alcohol < 10 mg/dl (0-10)
--- NOTE | 2020-08-14 22:20 | PC.NURSE ---
Pt requested to speak with . and this RN were present in room when pt requesting multiple times to stay overnight. MD told pt he will speak to procurement professional MD Escobar and follow his recommendation.
--- NOTE | 2020-08-14 22:22 | PC.NURSE ---
Elías speaking with Neus at this time.
[2020-08-14 22:47] LABS: Coronavirus 19, PCR Not Detected (NotDetected); Influenza A, PCR Not Detected (NotDetected); Influenza B, PCR Not Detected (NotDetected)
--- NOTE | 2020-08-14 23:31 | PC.NURSE ---
Report called to Tereza at this time.
--- NOTE | 2020-08-14 23:58 | PC.NURSE ---
PT ARRIVED TO FLOOR VIA W/C FROM ED W/STAFF AT 0719
[2020-08-15 04:00] VITALS: BP 136/78; PULSE 72; RESP 17; TEMP 36.7; O2SAT 96
[2020-08-15 05:32] VITALS: BMI 34.4
[2020-08-15 06:33] LABS: Basophils # 0.1 K/mm3 (0-0.2); Basophils % 1.4 % (0.1-2.0); Eosinophils % 0.3 % (0.1-12.0); Hemoglobin 13.5 g/dL (12.2-16.2); Lymphocytes # 3.2 K/mm3 (0.7-4.5); Lymphocytes % 42.1 % (10-50); Mean Corpuscular HGB Conc 33.8 g/dL (31.8-35.4); Mean Corpuscular Hemoglobin 30.5 pg (27.0-31.2); Mean Corpuscular Volume 90.1 fl (81-99); Mean Platelet Volume 8.3 fl (7.4-10.4); Monocytes # 0.3 K/mm3 (0.1-1.0); Monocytes % 4.5 % (1.7-9.3); Neutrophils % 51.6 % (37.0-80.0); Platelet Count 198 K/mm3 (142-424); Red Blood Count 4.43 M/mm3 (4.20-5.40); Red Cell Distribution Width 13.8 % (11.5-17.5); White Blood Count 7.7 K/mm3 (4.8-10.8)
[2020-08-15 06:36] LABS: Chloride 108 mmol/L (98-107); Potassium 4.4 mmoL/L (3.5-5.1); Sodium 140 mmol/L (136-145)
[2020-08-15 06:38] LABS: Alanine Aminotransferase 41 U/L (12-78); Aspartate Amino Transferase 45 U/L (14-36); Blood Urea Nitrogen 9 mg/dl (7-17); Creatinine Clearance Estimated 237 mL/min (50-200); Estimated Glomerular Filt Rate 142 ml/min (>60); GFR (African American) 172 ML/MIN (>60)
[2020-08-15 06:39] LABS: Albumin Level 4.3 g/dl (3.5-5.0); Albumin/Globulin Ratio 1.5 (1.1-1.8); Alkaline Phosphatase 86 U/L (38-126); Anion Gap 10.4 mEq/L (5-15); Bilirubin,Total 0.7 mg/dl (0.2-1.3); Carbon Dioxide 26 mmol/L (22.0-30.0); Globulin 2.9 g/dL (1.3-3.2); Glucose 94 mg/dl (74-100); Lipase 186 U/L (23-300); Total Protein,Serum 7.2 g/dl (6.3-8.2)
[2020-08-15 06:44] LABS: Calcium 8.7 mg/dl (8.4-10.2)
[2020-08-15 08:00] VITALS: BP 123/89; PULSE 91; RESP 16; TEMP 36.6; O2SAT 99
--- NOTE | 2020-08-15 08:28 | HMH.HPDC ---
General - General Admission date:: 08/14/20 Discharge date: 08/15/20 *Admission Date: 08/14/20 *Chief complaint: Abdominal pain *History of present illness: 34-year-old female patient presented to the emergency department with complaints of abdominal pain, nausea, and vomiting throughout the day. She was in the emergency department earlier same day with same complaints received fluids and antiemetic felt better and was discharged to home. She is very well-known to our practice with numerous admissions recently and in past for pancreatitis. She did have a ERCP and there was no blockages. She was admitted to the hospital for fluids and pain meds. White blood cell count normal, H/H within normal Chemistries on actionable Lipase 991 ETOH less than 10 SARS-COV-2 PCR negative Flu A/B PCR negative [facility] History I have reviewed the patient's past medical history: Yes Medical History: Reports:: Anxiety, Hyperlipidemia Denies:: Cancer, Diabetes Mellitus Type 1, Diabetes Mellitus Type 2, MRSA, Seizures, Urinary Tract Infection *Have you ever received a pneumonia vaccine?: No *Have you received a flu vaccine this season?: Yes Other Medical History: Reports: Arthritis, Fibromyalgia. Denies: Thyroid Disease Other Surgeries: Yes: Cholecystectomy, Dilation and Curettage. No: Amputation: No Fractures: No - *Social History Last grade of school completed: Some college Smoking Status: Current every day smoker Tobacco Type: cigarettes # Packs/Day (cigarettes): 1 Alcohol Intake: current Alcohol Intake Frequency:: a few times a month Substance Use Type: marijuana *Occupational Status:: unemployed Housing: house Household Members: significant other, family, children *Travel in the last 8 weeks: None - Psychiatric History Pschychiatric History:: Reports:: Anxiety Family Hx:: Cancer, Heart Attack, Hypertension Review of Systems - Review of Systems Review of systems:: pertinent systems reviewed and negative unless documented below - Constitutional Denies anorexia, Denies excessive sweating - Eyes Denies blind spots, Denies change in vision - ENT Denies abnormal hearing, Denies nosebleed - *Cardiovascular Denies chest pain, Denies shortness of breath - *Respiratory Denies chest congestion, Denies cough - *Gastrointestinal Reports abdominal pain, Reports nausea, Reports vomiting, Denies change in stools, Denies vomiting blood, Denies black, tarry stools - *Musculoskeletal Denies abnormal walking, Denies muscle cramps - Integumentary/Breasts Denies hair loss, Denies change in skin color - *Neurologic Denies headache(s), Denies seizure-like activity - Psychiatric Reports anxiety, Denies abnormal sleep pattern, Denies difficulty concentrating - Endocrine Denies cold intolerance, Denies rapid, pounding, or irregular heartbeat - Hematologic/Lymphatic Denies easy bleeding, Denies enlarged lymph nodes - Allergic/Immunologic Denies GI upset with certain foods, Denies tongue swelling Exam Vital signs and Labs for Last 24 Hours: Temp Pulse Resp BP Pulse Ox 98.0 F 72 17 136/78 96 08/15/20 04:00 08/15/20 04:00 08/15/20 04:00 08/15/20 04:00 08/15/20 04:00 Laboratory Results - last 24 hr 08/14/20 19:33: WBC 7.7, RBC 4.56, Hgb 13.6, Hct 39.6, MCV 86.8, MCH 29.9, MCHC 34.4, RDW 13.8, Plt Count 211, MPV 8.2, Neut % (Auto) 59.3, Lymph % (Auto) 34.6, [place] % (Auto) 4.9, Eos % (Auto) 0.2, Baso % (Auto) 1.0, Neut # (Auto) 4.5, Lymph # (Auto) 2.6, [place] # (Auto) 0.4, Eos # (Auto) 0.0, Baso # (Auto) 0.1 08/14/20 19:33: Sodium 137, Potassium 4.4, Chloride 101, Carbon Dioxide 24, Anion Gap 16.4 H, BUN 9, Creatinine 0.60, Estimated Creat Clear 191, Estimated GFR 115, Est GFR ( Amer) 139, Glucose 99, Calcium 9.8, Total Bilirubin 0.3, AST 33, ALT 42, Alkaline Phosphatase 92, Total Protein 7.8, Albumin 4.7, Globulin 3.1, Albumin/Globulin Ratio 1.5, Amylase 172 H, Lipase 991 H
== END 2020-08-15 13:00 | disposition home or self-care (01) ==
LOC: ER 20:12 → 2ND 22:31
PROVIDERS: Emergency Medicine; Admitting Provider Emergency Medicine; Emergency Provider Emergency Medicine; PCP Family Medicine; Visit Provider Family Medicine
DX: K85.90 Acute pancreatitis without necrosis or infection, unspecified (principal); E78.5 Hyperlipidemia, unspecified; F17.210 Nicotine dependence, cigarettes, uncomplicated; F41.8 Other specified anxiety disorders; Z79.899 Other long term (current) drug therapy
CPT/HCPCS: 80053; 82150; 83690; 85025; 96365; 96366; 96375; 99282; G0378; J2405; U0003

== ENCOUNTER 2020-08-16 19:51 | Emergency (ER) | payer BC, SELFPAY ==
[2020-08-16 19:52] VITALS: BP 116/67; PULSE 110; RESP 18; TEMP 36.9; O2SAT 98; BMI 34.7
[2020-08-16 20:03] VITALS: BMI 34.7
[2020-08-16 20:09] LABS: Microscopic, Urine URINE MICROSCOPIC (MICROSCOPIC)
[2020-08-16 20:11] LABS: Appearance,Urine CLEAR (Clear); Bilirubin,Urine Negative (Negative); Blood, Urine Negative (Negative); Color,Urine YELLOW (Yellow); Glucose,Urine (UA) Negative (Negative); Ketones,Urine Negative (Negative); Leukocyte Esterase,Urine Negative (Negative); Nitrate,Urine Negative (Negative); PH,Urine 8.5 (5.0-8.5); Protein,Urine Negative (Negative); Specific Gravity, Urine 1.015 (1.005-1.030); Urobilinogen,Urine 0.2 EU/dl (0.2)
[2020-08-16 20:18] LABS: Urine Pregnancy, HCG Qual. Negative (Negative)
[2020-08-16 20:23] LABS: Bacteria,Urine 3+ /lpf; Mucus,Urine 2+ /lpf
[2020-08-16 20:24] LABS: Amphetamine/Metha Screen,Urine Negative ng/ml (<1000); Barbiturates Screen,Urine Negative ng/ml (<200)
[2020-08-16 20:25] LABS: Benzodiazepines Screen,Urine Positive ng/ml (<200); Cannabinoid Screen,Urine Positive ng/ml (<50)
[2020-08-16 20:26] LABS: Cocaine Screen,Urine Negative ng/ml (<300)
[2020-08-16 20:27] LABS: Methadone Screen,Urine Negative ng/ml (<300); Opiate Screen,Urine Negative ng/ml (<300)
[2020-08-16 20:27] LABS: Basophils # 0.1 K/mm3 (0-0.2); Eosinophils % 0.2 % (0.1-12.0); Hemoglobin 12.6 g/dL (12.2-16.2); Lymphocytes # 2.4 K/mm3 (0.7-4.5); Lymphocytes % 27.8 % (10-50); Mean Corpuscular HGB Conc 34.9 g/dL (31.8-35.4); Mean Corpuscular Hemoglobin 30.2 pg (27.0-31.2); Mean Corpuscular Volume 86.4 fl (81-99); Mean Platelet Volume 8.5 fl (7.4-10.4); Monocytes # 0.4 K/mm3 (0.1-1.0); Monocytes % 4.2 % (1.7-9.3); Neutrophils # 5.7 K/mm3 (1.8-7.8); Neutrophils % 66.8 % (37.0-80.0); Platelet Count 210 K/mm3 (142-424); Red Blood Count 4.17 M/mm3 (4.20-5.40); Red Cell Distribution Width 13.8 % (11.5-17.5); White Blood Count 8.5 K/mm3 (4.8-10.8)
[2020-08-16 20:28] LABS: Phencyclidine Screen,Urine Negative ng/ml (<25)
[2020-08-16 20:30] VITALS: BP 138/86; PULSE 96; RESP 16; O2SAT 97
[2020-08-16 20:31] LABS: Chloride 107 mmol/L (98-107); Potassium 3.9 mmoL/L (3.5-5.1); Sodium 142 mmol/L (136-145)
[2020-08-16 20:34] LABS: Anion Gap 13.9 mEq/L (5-15); Blood Urea Nitrogen 8 mg/dl (7-17); Calcium 8.9 mg/dl (8.4-10.2); Carbon Dioxide 25 mmol/L (22.0-30.0); Creatinine Clearance Estimated 200 mL/min (50-200); Estimated Glomerular Filt Rate 115 ml/min (>60); GFR (African American) 139 ML/MIN (>60); Glucose 82 mg/dl (74-100); Lipase 239 U/L (23-300)
--- NOTE | 2020-08-16 20:43 | HMH.EDABDPAI ---
ED Disposition Clinical Impression: Pancreatitis, chronic Disposition: Home, Self-Care Condition on Discharge: Good Instructions: DI for Acute Abdominal Pain Additional Instructions: Return the emergency department for worsening pain nausea vomiting fever chills or any other concerns tonight. Otherwise keep your appointment with Dr. Escobar tomorrow. Referrals: Elmo Escobar MD [Primary Care Provider] - - Critical Care Critical Care Time: No Attestation: On 08/16/20, the high probability of a clinically significant, sudden or life threatening deterioration of the following system(s) required my full and direct attention, intervention and personal management. The time I documented below is in addition to time spent performing reported procedures but includes the following listed in this critical care notation. Medical Decision Making - Medical Records Medical records reviewed: Yes: I reviewed the patient's medical records. - Ramses Inquiry Pt receiving controlled substance: No Vital Signs: 08/16/20 19:52 Temperature 98.4 F Temperature Source Oral Pulse Rate [Left Radial] 110 H Respiratory Rate 18 Blood Pressure [Right Arm] 116/67 Blood Pressure Mean [Right Arm] 83 Blood Pressure Source [Right Arm] Automatic Cuff Blood Pressure Position [Right Arm] Sitting 02 Sat by Pulse Oximetry 98 Oxygen Delivery Method Room Air - Lab Data Lab Results 08/16/20 20:01: Urine Color Yellow, Urine Appearance Clear, Urine pH 8.5, Ur Specific [place] 1.015, Urine Protein Negative, Urine Glucose (UA) Negative, Urine Ketones Negative, Urine Blood Negative, Urine Nitrate Negative, Urine Bilirubin Negative, Urine Urobilinogen 0.2, Ur Leukocyte Esterase Negative, Urine WBC 3-5, Ur Squamous Epith Cells 5-10, Urine Bacteria 3+, Urine Mucus 2+ 08/16/20 20:01: Urine HCG, Qual Negative 08/16/20 20:01: Urine Opiates Screen Negative, Urine Methadone Screen Negative, Ur Barbituates Screen Negative, Ur Phencyclidine Scrn Negative, Ur Amphetamines Screen Negative, U Benzodiazepines Scrn Positive H, Urine Cocaine Screen Negative, U Marijuana (THC) Screen Positive H 08/16/20 20:20: WBC 8.5, RBC 4.17 L, Hgb 12.6, Hct 36.0 L, MCV 86.4, MCH 30.2, MCHC 34.9, RDW 13.8, Plt Count 210, MPV 8.5, Neut % (Auto) 66.8, Lymph % (Auto) 27.8, [place] % (Auto) 4.2, Eos % (Auto) 0.2, Baso % (Auto) 1.0, Neut # (Auto) 5.7, Lymph # (Auto) 2.4, [place] # (Auto) 0.4, Eos # (Auto) 0.0, Baso # (Auto) 0.1 08/16/20 20:20: Sodium 142, Potassium 3.9, Chloride 107, Carbon Dioxide 25, Anion Gap 13.9, BUN 8, Creatinine 0.60, Estimated Creat Clear 200, Estimated GFR 115, Est GFR ( Amer) 139, Glucose 82, Calcium 8.9, Lipase 239 Result diagrams: 08/16/20 20:20 08/16/20 20:20 Orders (Tests/Meds): ED MEDICATIONS Discontinued Medications Generic Name Dose Route Start Last Admin Trade Name Eugeneq PRN Reason Stop Dose Admin Hydromorphone HCl 1 mg 08/16/20 20:21 08/16/20 20:31 Hydromorphone 4 Mg/Ml Syringe IM 08/16/20 20:22 Not Given ONCE ONE Hydromorphone HCl 1 mg 08/16/20 20:30 08/16/20 20:31 Hydromorphone 2mg/Ml Syringe IM 08/16/20 20:31 1 mg ONCE ONE Administration Promethazine HCl 25 mg 08/16/20 20:21 08/16/20 20:32 Promethazine Hcl 25mg/Ml 1ml Vial IM 08/16/20 20:22 25 mg ONCE ONE Administration Sodium Chloride 25 ml 08/16/20 20:21 08/16/20 20:27 Sodium Chloride 0.9% 25ml Bag IV 08/16/20 20:22 Not Given ONCE ONE ORDERS Category Date Time Status Urine Culture Stat Micro 08/16/20 20:01 Received Medical Decision Narrative: 34-year-old female presents with abdominal pain. Pain is typical for her chronic pancreatitis and she requested a shot of pain medicine to get her through the night. She has an appointment with Dr. Escobar in the morning. On history or exam I am not concerned for small bowel obstruction, mesenteric ischemia, perforation or any other emergent pathology. We treated her pain and nausea and her
[2020-08-16 20:50] VITALS: BP 156/86; PULSE 84; RESP 16; TEMP 36.7; O2SAT 96
== END 2020-08-16 20:53 | disposition home or self-care (01) ==
PROVIDERS: Emergency Medicine; Emergency Provider Emergency Medicine; PCP Family Medicine
DX: K86.1 Other chronic pancreatitis (principal); F41.9 Anxiety disorder, unspecified; F12.10 Cannabis abuse, uncomplicated
CPT/HCPCS: 80048; 80305; 81001; 81025; 83690; 85025; 87086; 96372; 99282

== ENCOUNTER 2020-08-20 20:23 | Emergency (ER) | payer BC, SELFPAY ==
[2020-08-20 20:28] VITALS: BP 142/92; PULSE 65; RESP 16; TEMP 36.7; O2SAT 98; BMI 28.2
[2020-08-20 21:05] LABS: Basophils # 0.2 K/mm3 (0-0.2); Basophils % 1.9 % (0.1-2.0); Eosinophils # 0.1 K/mm3 (0.0-0.4); Eosinophils % 1.3 % (0.1-12.0); Hematocrit 39.8 % (37.0-47.0); Hemoglobin 13.4 g/dL (12.2-16.2); Lymphocytes # 3.2 K/mm3 (0.7-4.5); Lymphocytes % 37.7 % (10-50); Mean Corpuscular HGB Conc 33.8 g/dL (31.8-35.4); Mean Corpuscular Hemoglobin 30.1 pg (27.0-31.2); Mean Corpuscular Volume 89.2 fl (81-99); Mean Platelet Volume 8.1 fl (7.4-10.4); Monocytes # 0.4 K/mm3 (0.1-1.0); Monocytes % 4.4 % (1.7-9.3); Neutrophils # 4.6 K/mm3 (1.8-7.8); Neutrophils % 54.7 % (37.0-80.0); Platelet Count 228 K/mm3 (142-424); Red Blood Count 4.46 M/mm3 (4.20-5.40); Red Cell Distribution Width 13.9 % (11.5-17.5); White Blood Count 8.4 K/mm3 (4.8-10.8)
[2020-08-20 21:06] LABS: Chloride 102 mmol/L (98-107); Sodium 138 mmol/L (136-145)
[2020-08-20 21:07] LABS: Potassium 4.3 mmoL/L (3.5-5.1)
[2020-08-20 21:09] LABS: Alanine Aminotransferase 32 U/L (12-78); Alkaline Phosphatase 86 U/L (38-126); Amylase 183 U/L (30-110); Anion Gap 14.3 mEq/L (5-15); Aspartate Amino Transferase 37 U/L (14-36); Bilirubin,Total 0.5 mg/dl (0.2-1.3); Blood Urea Nitrogen 12 mg/dl (7-17); Carbon Dioxide 26 mmol/L (22.0-30.0); Creatinine Clearance Estimated 167 mL/min (50-200); Estimated Glomerular Filt Rate 115 ml/min (>60); GFR (African American) 139 ML/MIN (>60)
[2020-08-20 21:10] LABS: Albumin Level 4.6 g/dl (3.5-5.0); Albumin/Globulin Ratio 1.5 (1.1-1.8); Calcium 9.2 mg/dl (8.4-10.2); Globulin 3.1 g/dL (1.3-3.2); Glucose 95 mg/dl (74-100); Total Protein,Serum 7.7 g/dl (6.3-8.2)
[2020-08-20 21:13] LABS: Lipase 628 U/L (23-300)
[2020-08-20 21:17] LABS: Microscopic, Urine URINE MICROSCOPIC (MICROSCOPIC)
[2020-08-20 21:18] LABS: Appearance,Urine CLEAR (Clear); Blood, Urine Negative (Negative); Color,Urine YELLOW (Yellow); Glucose,Urine (UA) Negative (Negative); Ketones,Urine Negative (Negative); Leukocyte Esterase,Urine Negative (Negative); Nitrate,Urine Negative (Negative); Protein,Urine Negative (Negative); Specific Gravity, Urine >= 1.030 (1.005-1.030); Urobilinogen,Urine 0.2 EU/dl (0.2)
[2020-08-20 21:21] LABS: Bilirubin,Urine Negative (Negative)
[2020-08-20 21:24] LABS: Bacteria,Urine 1+ /lpf; Mucus,Urine 1+ /lpf; WBC,Urine Occasional #/hpf (0-3)
--- NOTE | 2020-08-20 21:34 | HMH.EDNVD ---
ED Disposition Clinical Impression: Abdominal pain Qualifiers: Abdominal location: generalized Qualified Code(s): R10.84 - Generalized abdominal pain Acute pancreatitis Qualifiers: Pancreatitis type: unspecified pancreatitis type Acute pancreatitis complication: no infection or necrosis Qualified Code(s): K85.90 - Acute pancreatitis without necrosis or infection, unspecified Disposition: Home, Self-Care Condition on Discharge: Good Instructions: DI for Acute Abdominal Pain Additional Instructions: call pcp for follow up Referrals: Elmo Escobar MD [Primary Care Provider] - - Critical Care Critical Care Time: No Attestation: On 08/20/20, the high probability of a clinically significant, sudden or life threatening deterioration of the following system(s) required my full and direct attention, intervention and personal management. The time I documented below is in addition to time spent performing reported procedures but includes the following listed in this critical care notation. Medical Decision Making - Medical Records Medical records reviewed: Yes: I reviewed the patient's medical records. - Ramses Inquiry Pt receiving controlled substance: No Vital Signs: 08/20/20 20:28 08/21/20 00:06 Temperature 98.1 F 98.2 F Temperature Source Oral Oral Pulse Rate 88 Pulse Rate [Right Brachial] 65 Respiratory Rate 16 18 Blood Pressure 112/49 L Blood Pressure [Right Arm] 142/92 H Blood Pressure Mean [Right Arm] 108 Blood Pressure Source Automatic Cuff Blood Pressure Source [Right Arm] Automatic Cuff Blood Pressure Position Sitting Blood Pressure Position [Right Arm] Sitting 02 Sat by Pulse Oximetry 98 Oxygen Delivery Method Room Air Room Air - Lab Data Lab results reviewed: Yes: I reviewed the patient's lab results. Lab Results 08/20/20 20:38: WBC 8.4, RBC 4.46, Hgb 13.4, Hct 39.8, MCV 89.2, MCH 30.1, MCHC 33.8, RDW 13.9, Plt Count 228, MPV 8.1, Neut % (Auto) 54.7, Lymph % (Auto) 37.7, [place] % (Auto) 4.4, Eos % (Auto) 1.3, Baso % (Auto) 1.9, Neut # (Auto) 4.6, Lymph # (Auto) 3.2, [place] # (Auto) 0.4, Eos # (Auto) 0.1, Baso # (Auto) 0.2 08/20/20 20:38: Sodium 138, Potassium 4.3, Chloride 102, Carbon Dioxide 26, Anion Gap 14.3, BUN 12, Creatinine 0.60, Estimated Creat Clear 167, Estimated GFR 115, Est GFR ( Amer) 139, Glucose 95, Calcium 9.2, Total Bilirubin 0.5, AST 37 H, ALT 32, Alkaline Phosphatase 86, Total Protein 7.7, Albumin 4.6, Globulin 3.1, Albumin/Globulin Ratio 1.5, Amylase 183 H, Lipase 628 H 08/20/20 21:10: Urine Color Yellow, Urine Appearance Clear, Urine pH 5.0, Ur Specific [place] >= 1.030, Urine Protein Negative, Urine Glucose (UA) Negative, Urine Ketones Negative, Urine Blood Negative, Urine Nitrate Negative, Urine Bilirubin Negative, Urine Urobilinogen 0.2, Ur Leukocyte Esterase Negative, Urine WBC Occasional, Ur Squamous Epith Cells 3-5, Urine Bacteria 1+, Urine Mucus 1+ Result diagrams: 08/20/20 20:38 08/20/20 20:38 Orders (Tests/Meds): ED MEDICATIONS Discontinued Medications Generic Name Dose Route Start Last Admin Trade Name Freq PRN Reason Stop Dose Admin Hydromorphone HCl 1 mg 08/20/20 23:26 08/21/20 00:23 Hydromorphone 2mg/Ml Syringe IV 08/20/20 23:27 1 mg ONCE ONE Administration Sodium Chloride 1,000 mls @ 999 mls/hr 08/20/20 23:30 08/20/20 23:32 Sod Chlor 0.9% 1000ml Bag IV 08/21/20 00:30 999 mls/hr .Q1H1M INO Administration Ondansetron HCl 4 mg 08/20/20 23:26 08/20/20 23:33 Ondansetron 4mg/2ml Vial IV 08/20/20 23:27 4 mg ONCE ONE Administration Medical Decision Narrative: will call pcp for follow up Nausea/Vomiting/Diarrhea HPI - General Chief complaint: Abdominal Pain Stated complaint: abdominal pain Time Seen by Provider: 08/20/20 21:25 Mode of Arrival: Family Vehicle Source of Information: Patient, Medical Record Limitations: No Limitations Description of Symptoms (Recalled from ER Triage Doc. by RN): pt yaritza
--- NOTE | 2020-08-20 23:40 | PC.NURSE ---
waiting on ride to arrive for admin of pain meds per md order.
[2020-08-21 00:06] VITALS: BP 112/49; PULSE 88; RESP 18; TEMP 36.8; O2SAT 98
== END 2020-08-21 00:18 | disposition home or self-care (01) ==
LOC: ER 20:26
PROVIDERS: Emergency Provider Emergency Medicine; PCP Family Medicine
DX: R10.84 Generalized abdominal pain (principal); K85.90 Acute pancreatitis without necrosis or infection, unspecified; E78.5 Hyperlipidemia, unspecified; M79.7 Fibromyalgia; F41.9 Anxiety disorder, unspecified
CPT/HCPCS: 80053; 81001; 82150; 83690; 85025; 96365; 96375; 99282; J2405

== ENCOUNTER 2020-08-22 13:44 | Emergency (ER) | payer BC, SELFPAY ==
[2020-08-22 13:46] VITALS: BP 130/84; PULSE 92; RESP 16; TEMP 36.8; O2SAT 98; BMI 34.6
[2020-08-22 14:55] LABS: Microscopic, Urine URINE MICROSCOPIC (MICROSCOPIC)
[2020-08-22 14:57] LABS: Appearance,Urine CLEAR (Clear); Bilirubin,Urine Negative (Negative); Blood, Urine 1+ (Negative); Color,Urine YELLOW (Yellow); Glucose,Urine (UA) Negative (Negative); Ketones,Urine Negative (Negative); Leukocyte Esterase,Urine Negative (Negative); Nitrate,Urine Negative (Negative); PH,Urine 6.5 (5.0-8.5); Protein,Urine Negative (Negative); Specific Gravity, Urine <= 1.005 (1.005-1.030); Urobilinogen,Urine 0.2 EU/dl (0.2)
[2020-08-22 15:08] LABS: Barbiturates Screen,Urine Negative ng/ml (<200); Benzodiazepines Screen,Urine Negative ng/ml (<200)
[2020-08-22 15:09] LABS: Amphetamine/Metha Screen,Urine Negative ng/ml (<1000)
[2020-08-22 15:10] LABS: Cocaine Screen,Urine Negative ng/ml (<300); Methadone Screen,Urine Negative ng/ml (<300)
[2020-08-22 15:11] LABS: Cannabinoid Screen,Urine Positive ng/ml (<50)
[2020-08-22 15:12] LABS: Opiate Screen,Urine Negative ng/ml (<300); Phencyclidine Screen,Urine Negative ng/ml (<25)
--- NOTE | 2020-08-22 15:16 | HMH.EDABDPAI ---
ED Disposition Clinical Impression: Pancreatitis, chronic Disposition: Home, Self-Care Condition on Discharge: Good Instructions: DI for Acute Abdominal Pain Additional Instructions: stay On clear liquid diet for next 24 hours. Follow-up with the primary care physician. Follow with the pain clinic as scheduled Prescriptions: Dicyclomine HCl [Bentyl 10mg capsule] 10 mg PO TID 10 Days #30 cap Transmission Status: Pending to [id number] Promethazine HCl [Phenergan 12.5mg tablet] 12.5 mg PO Q8H PRN 4 Days #12 tab PRN Reason: Vomiting Transmission Status: Pending to [id number] Referrals: Elmo Escobar MD [Primary Care Provider] - - Critical Care Critical Care Time: No Attestation: On 08/22/20, the high probability of a clinically significant, sudden or life threatening deterioration of the following system(s) required my full and direct attention, intervention and personal management. The time I documented below is in addition to time spent performing reported procedures but includes the following listed in this critical care notation. Medical Decision Making - Medical Records MR Comment: Patient has a chronic abdominal pain due to chronic pancreatitis. She was given 1 L of IV fluid and Zofran. Patient amylase and lipase are normal. Drug test is positive for marijuana. She has referral to pain clinic. - Ramses Inquiry Pt receiving controlled substance: No Ramses was queried for this patient: No Vital Signs: 08/22/20 13:46 Temperature 98.2 F Temperature Source Oral Pulse Rate [Radial] 92 H Respiratory Rate 16 Blood Pressure [Right Arm] 130/84 Blood Pressure Mean [Right Arm] 99 Blood Pressure Position [Right Arm] Sitting 02 Sat by Pulse Oximetry 98 Oxygen Delivery Method Room Air - Lab Data Lab Results 08/22/20 14:53: Urine Color Yellow, Urine Appearance Clear, Urine pH 6.5, Ur Specific [place] <= 1.005, Urine Protein Negative, Urine Glucose (UA) Negative, Urine Ketones Negative, Urine Blood 1+, Urine Nitrate Negative, Urine Bilirubin Negative, Urine Urobilinogen 0.2, Ur Leukocyte Esterase Negative, Urine RBC Occasional, Urine WBC None, Ur Squamous Epith Cells None, Urine Bacteria None 08/22/20 14:53: Urine Opiates Screen Negative, Urine Methadone Screen Negative, Ur Barbituates Screen Negative, Ur Phencyclidine Scrn Negative, Ur Amphetamines Screen Negative, U Benzodiazepines Scrn Negative, Urine Cocaine Screen Negative, U Marijuana (THC) Screen Positive H 08/22/20 15:05: WBC 9.5, RBC 4.43, Hgb 13.2, Hct 39.8, MCV 89.9, MCH 29.7, MCHC 33.1, RDW 13.8, Plt Count 244, MPV 7.9, Neut % (Auto) 76.2, Lymph % (Auto) 19.2, [place] % (Auto) 3.8, Eos % (Auto) 0.1, Baso % (Auto) 0.7, Neut # (Auto) 7.2, Lymph # (Auto) 1.8, [place] # (Auto) 0.4, Eos # (Auto) 0.0, Baso # (Auto) 0.1 08/22/20 15:05: Sodium 138, Potassium 4.0, Chloride 105, Carbon Dioxide 22, Anion Gap 15.0, BUN 9, Creatinine 0.50 L, Estimated Creat Clear 238, Estimated GFR 142, Est GFR ( Amer) 172 D, Glucose 93, Calcium 9.2, Total Bilirubin 0.5, AST 24 D, ALT 26, Alkaline Phosphatase 87, Total Protein 7.4, Albumin 4.6, Globulin 2.8, Albumin/Globulin Ratio 1.6, Amylase 108 08/22/20 15:05: Lactate 1.5 08/22/20 15:05: Lipase 143 Result diagrams: 08/22/20 15:05 08/22/20 15:05 Orders (Tests/Meds): ED MEDICATIONS Discontinued Medications Generic Name Dose Route Start Last Admin Trade Name Karen PRN Reason Stop Dose Admin Dicyclomine HCl 20 mg 08/22/20 15:50 08/22/20 16:08 Dicyclomine 20 Mg/2ml Vial IM 08/22/20 15:51 20 mg ONCE ONE Administration Sodium Chloride 1,000 mls @ 999 mls/hr 08/22/20 15:15 08/22/20 16:14 Sod Chlor 0.9% 1000ml Bag IV 08/22/20 16:15 999 mls/hr .Q1H1M INO Administration Ondansetron HCl 4 mg 08/22/20 15:10 08/22/20 15:11 Ondansetron 4mg/2ml Vial IV 08/22/20 15:11 4 mg ONCE ONE Administration Abdominal Pain HPI - General Chief Complaint: Abdominal Pain St
[2020-08-22 15:18] LABS: Basophils # 0.1 K/mm3 (0-0.2); Basophils % 0.7 % (0.1-2.0); Eosinophils % 0.1 % (0.1-12.0); Hematocrit 39.8 % (37.0-47.0); Hemoglobin 13.2 g/dL (12.2-16.2); Lymphocytes # 1.8 K/mm3 (0.7-4.5); Lymphocytes % 19.2 % (10-50); Mean Corpuscular HGB Conc 33.1 g/dL (31.8-35.4); Mean Corpuscular Hemoglobin 29.7 pg (27.0-31.2); Mean Corpuscular Volume 89.9 fl (81-99); Mean Platelet Volume 7.9 fl (7.4-10.4); Monocytes # 0.4 K/mm3 (0.1-1.0); Monocytes % 3.8 % (1.7-9.3); Neutrophils # 7.2 K/mm3 (1.8-7.8); Neutrophils % 76.2 % (37.0-80.0); Platelet Count 244 K/mm3 (142-424); Red Blood Count 4.43 M/mm3 (4.20-5.40); Red Cell Distribution Width 13.8 % (11.5-17.5); White Blood Count 9.5 K/mm3 (4.8-10.8)
[2020-08-22 15:21] LABS: Lactic Acid 1.5 mmol/L (0.7-2.1)
[2020-08-22 15:22] LABS: Alanine Aminotransferase 26 U/L (12-78); Albumin Level 4.6 g/dl (3.5-5.0); Albumin/Globulin Ratio 1.6 (1.1-1.8); Alkaline Phosphatase 87 U/L (38-126); Amylase 108 U/L (30-110); Aspartate Amino Transferase 24 U/L (14-36); Bilirubin,Total 0.5 mg/dl (0.2-1.3); Blood Urea Nitrogen 9 mg/dl (7-17); Calcium 9.2 mg/dl (8.4-10.2); Carbon Dioxide 22 mmol/L (22.0-30.0); Chloride 105 mmol/L (98-107); Creatinine Clearance Estimated 238 mL/min (50-200); Estimated Glomerular Filt Rate 142 ml/min (>60); GFR (African American) 172 ML/MIN (>60); Globulin 2.8 g/dL (1.3-3.2); Glucose 93 mg/dl (74-100); Lipase 143 U/L (23-300); Sodium 138 mmol/L (136-145); Total Protein,Serum 7.4 g/dl (6.3-8.2)
[2020-08-22 15:26] LABS: RBC,Urine Occasional #/hpf (0-3)
--- NOTE | 2020-08-22 15:58 | PC.NURSE ---
pt tearful c/o increasing abd pain. aware
[2020-08-22 16:28] VITALS: BP 131/93; PULSE 90; RESP 22; TEMP 36.6; O2SAT 98
== END 2020-08-22 16:31 | disposition home or self-care (01) ==
PROVIDERS: Emergency Provider Internal Medicine; PCP Family Medicine
DX: K86.1 Other chronic pancreatitis (principal); F41.9 Anxiety disorder, unspecified; E78.5 Hyperlipidemia, unspecified; F17.210 Nicotine dependence, cigarettes, uncomplicated
CPT/HCPCS: 36415; 80053; 80305; 81001; 82150; 83605; 83690; 85025; 96365; 96372; 96375; 99282; 99283; J2405

== ENCOUNTER 2020-08-22 22:41 | Emergency (ER) | payer BC, SELFPAY ==
[2020-08-22 22:43] VITALS: BP 133/89; PULSE 81; RESP 16; TEMP 36.9; O2SAT 98; BMI 34.6
[2020-08-22 23:00] VITALS: BP 125/90; PULSE 58; O2SAT 98
[2020-08-22 23:12] LABS: Basophils # 0.1 K/mm3 (0-0.2); Basophils % 0.7 % (0.1-2.0); Eosinophils # 0.1 K/mm3 (0.0-0.4); Eosinophils % 1.2 % (0.1-12.0); Hematocrit 36.6 % (37.0-47.0); Hemoglobin 12.3 g/dL (12.2-16.2); Lymphocytes # 2.6 K/mm3 (0.7-4.5); Lymphocytes % 30.8 % (10-50); Mean Corpuscular HGB Conc 33.5 g/dL (31.8-35.4); Mean Corpuscular Hemoglobin 29.6 pg (27.0-31.2); Mean Corpuscular Volume 88.4 fl (81-99); Mean Platelet Volume 7.6 fl (7.4-10.4); Monocytes # 0.4 K/mm3 (0.1-1.0); Monocytes % 4.8 % (1.7-9.3); Neutrophils # 5.2 K/mm3 (1.8-7.8); Neutrophils % 62.5 % (37.0-80.0); Platelet Count 229 K/mm3 (142-424); Red Blood Count 4.14 M/mm3 (4.20-5.40); Red Cell Distribution Width 13.8 % (11.5-17.5); White Blood Count 8.4 K/mm3 (4.8-10.8)
[2020-08-22 23:30] VITALS: BP 124/81; PULSE 60; O2SAT 96
[2020-08-22 23:35] LABS: Alanine Aminotransferase 23 U/L (12-78); Albumin Level 4.3 g/dl (3.5-5.0); Albumin/Globulin Ratio 1.5 (1.1-1.8); Alkaline Phosphatase 79 U/L (38-126); Amylase 197 U/L (30-110); Anion Gap 13.9 mEq/L (5-15); Aspartate Amino Transferase 32 U/L (14-36); Bilirubin,Total 0.6 mg/dl (0.2-1.3); Blood Urea Nitrogen 7 mg/dl (7-17); Calcium 9.3 mg/dl (8.4-10.2); Carbon Dioxide 21 mmol/L (22.0-30.0); Chloride 108 mmol/L (98-107); Creatinine Clearance Estimated 238 mL/min (50-200); Estimated Glomerular Filt Rate 142 ml/min (>60); GFR (African American) 172 ML/MIN (>60); Globulin 2.8 g/dL (1.3-3.2); Glucose 93 mg/dl (74-100); Potassium 3.9 mmoL/L (3.5-5.1); Sodium 139 mmol/L (136-145); Total Protein,Serum 7.1 g/dl (6.3-8.2)
[2020-08-22 23:41] LABS: C-Reactive Protein 3.3 mg/L (0-4)
[2020-08-22 23:44] LABS: Lipase 751 U/L (23-300)
--- NOTE | 2020-08-22 23:45 | PC.NURSE ---
leobardo notified of critical lipase 110
[2020-08-22 23:49] LABS: Erythrocyte Sedimentation Rate 19 mm/hr (0-20)
[2020-08-23] VITALS: BP 120/79; PULSE 56; O2SAT 96
--- NOTE | 2020-08-23 00:16 | HMH.EDNVD ---
ED Disposition Clinical Impression: Acute pancreatitis Qualifiers: Pancreatitis type: unspecified pancreatitis type Acute pancreatitis complication: no infection or necrosis Qualified Code(s): K85.90 - Acute pancreatitis without necrosis or infection, unspecified Disposition: Home, Self-Care Condition on Discharge: Good Instructions: DI for Acute Abdominal Pain Additional Instructions: see pcp today Referrals: Elmo Escobar MD [Primary Care Provider] - - Critical Care Critical Care Time: No Attestation: On 08/22/20, the high probability of a clinically significant, sudden or life threatening deterioration of the following system(s) required my full and direct attention, intervention and personal management. The time I documented below is in addition to time spent performing reported procedures but includes the following listed in this critical care notation. Medical Decision Making - Medical Records Medical records reviewed: Yes: I reviewed the patient's medical records. - Ramses Inquiry Pt receiving controlled substance: No Vital Signs: 08/22/20 22:43 08/22/20 23:00 08/22/20 23:30 Temperature 98.4 F Temperature Source Oral Pulse Rate 58 L 60 Pulse Rate [Right] 81 Respiratory Rate 16 Blood Pressure 125/90 124/81 Blood Pressure [Right Arm] 133/89 Blood Pressure Mean [Right Arm] 103 02 Sat by Pulse Oximetry 98 98 96 - Lab Data Lab results reviewed: Yes: I reviewed the patient's lab results. Lab Results 08/22/20 23:00: WBC 8.4, RBC 4.14 L, Hgb 12.3, Hct 36.6 L, MCV 88.4, MCH 29.6, MCHC 33.5, RDW 13.8, Plt Count 229, MPV 7.6, Neut % (Auto) 62.5, Lymph % (Auto) 30.8, [place] % (Auto) 4.8, Eos % (Auto) 1.2, Baso % (Auto) 0.7, Neut # (Auto) 5.2, Lymph # (Auto) 2.6, [place] # (Auto) 0.4, Eos # (Auto) 0.1, Baso # (Auto) 0.1, ESR 19 08/22/20 23:00: Sodium 139, Potassium 3.9, Chloride 108 H, Carbon Dioxide 21 L, Anion Gap 13.9, BUN 7, Creatinine 0.50 L, Estimated Creat Clear 238, Estimated GFR 142, Est GFR ( Amer) 172, Glucose 93, Calcium 9.3, Total Bilirubin 0.6, AST 32 D, ALT 23, Alkaline Phosphatase 79, C-Reactive Protein 3.3, Total Protein 7.1, Albumin 4.3, Globulin 2.8, Albumin/Globulin Ratio 1.5, Amylase 197 H D, Lipase 751 H, Procalcitonin < 0.03 Result diagrams: 08/22/20 23:00 08/22/20 23:00 Medical Decision Narrative: see pcp today Nausea/Vomiting/Diarrhea HPI - General Chief complaint: Abdominal Pain Stated complaint: STOMACH AND LEFT SIDE PAIN Time Seen by Provider: 08/23/20 00:00 Mode of Arrival: Ambulatory Source of Information: Patient, Medical Record Limitations: No Limitations Description of Symptoms (Recalled from ER Triage Doc. by RN): pt was seen earlier today in er for epigastric pain but now it is radiating lt side and increasing vomitting - History of Present Illness HPI Narrative: pt with recurrent abd pain with nausea and has hx of pancreatitis - was seen in the ed earlier MD complaint: nausea, vomiting, abdominal pain Onset (ago): hour(s) Associated Abdominal Pain: Yes Location of pain: LUQ, epigastric Severity: moderate Consistency: intermittent Associated symptoms: denies other symptoms - Related Data Home Medications Medication Instructions Recorded Confirmed methocarbamol 500 mg tablet 500 mg PO TIDP PRN tab 05/09/20 08/17/20 pregabalin 200 mg capsule 200 mg PO BID cap 05/09/20 08/17/20 venlafaxine 150 mg 150 mg PO DAILY cap 05/09/20 08/17/20 capsule,extended release 24 hr Lurasidone HCl [Latuda] 40 mg PO HS 06/23/20 08/17/20 cloNIDine HCL [cloNIDine 0.1mg 0.1 mg PO BIDP PRN 06/23/20 08/17/20 Tablet] Previous Rx's Medication Instructions Recorded ondansetron HCL [Zofran 4mg Tab*] 4 mg PO TIDP PRN #30 tab 08/07/20 chlordiazepoxide-clidinium 5 1 cap PO TID PRN #30 cap 08/17/20 mg-2.5 mg capsule dicyclomine 20 mg tablet 20 mg PO TID PRN #45 tab 08/17/20 Creon 12,000-38,000-60,000 unit 1 cap PO TID #90 cap NS 08/20/20 capsul
[2020-08-23 00:23] LABS: Procalcitonin < 0.03 ng/mL (0.0-2.0)
[2020-08-23 00:30] VITALS: BP 126/85; PULSE 60; O2SAT 96
[2020-08-23 01:00] VITALS: BP 134/87; PULSE 68; O2SAT 98
[2020-08-23 01:23] VITALS: BP 120/73; PULSE 64; RESP 16; TEMP 36.9; O2SAT 98
== END 2020-08-23 01:25 | disposition home or self-care (01) ==
PROVIDERS: Emergency Provider Emergency Medicine; PCP Family Medicine
DX: K85.90 Acute pancreatitis without necrosis or infection, unspecified (principal); F41.9 Anxiety disorder, unspecified; E78.5 Hyperlipidemia, unspecified; F17.210 Nicotine dependence, cigarettes, uncomplicated; Z79.899 Other long term (current) drug therapy
CPT/HCPCS: 80053; 82150; 83690; 84145; 85025; 85651; 86140; 99281; 99282

== ENCOUNTER 2020-08-26 16:33 | Emergency (ER) | payer BC, SELFPAY ==
[2020-08-26 16:44] VITALS: BP 127/82; PULSE 105; RESP 16; TEMP 36.9; O2SAT 97; BMI 34.1
[2020-08-26 17:05] LABS: Microscopic, Urine URINE MICROSCOPIC (MICROSCOPIC)
--- NOTE | 2020-08-26 17:05 | HMH.EDGENADL ---
ED Disposition Clinical Impression: Chronic abdominal pain Disposition: Home, Self-Care Condition on Discharge: Good Instructions: DI for Chronic Pain -- Adult Additional Instructions: See Dr. Escobar in the office tomorrow at 10 AM or 1 PM. Continue current medications. Referrals: Elmo Escobar MD [Primary Care Provider] - - Critical Care Critical Care Time: No Attestation: On 08/26/20, the high probability of a clinically significant, sudden or life threatening deterioration of the following system(s) required my full and direct attention, intervention and personal management. The time I documented below is in addition to time spent performing reported procedures but includes the following listed in this critical care notation. Medical Decision Making - Ramses Inquiry Pt receiving controlled substance: No Vital Signs: 08/26/20 16:44 Temperature 98.4 F Temperature Source Oral Pulse Rate [Radial] 105 H Respiratory Rate 16 Blood Pressure [Right Arm] 127/82 Blood Pressure Mean [Right Arm] 97 02 Sat by Pulse Oximetry 97 Oxygen Delivery Method Room Air - Lab Data Lab Results 08/26/20 16:40: Urine Color Yellow, Urine Appearance Clear, Urine pH 7.0, Ur Specific [place] 1.010, Urine Protein Trace, Urine Glucose (UA) Negative, Urine Ketones Trace, Urine Blood 3+, Urine Nitrate Negative, Urine Bilirubin Negative, Urine Urobilinogen 1.0, Ur Leukocyte Esterase Negative, Urine RBC 5-10, Urine WBC Occasional, Ur Squamous Epith Cells 20-50, Amorphous Sediment 1+, Urine Bacteria 1+ 08/26/20 16:40: Urine HCG, Qual Negative 08/26/20 17:00: WBC 6.3, RBC 4.32, Hgb 12.8, Hct 38.2, MCV 88.5, MCH 29.7, MCHC 33.6, RDW 14.1, Plt Count 230, MPV 8.1, Neut % (Auto) 64.4, Lymph % (Auto) 28.6, [place] % (Auto) 5.2, Eos % (Auto) 0.3, Baso % (Auto) 1.6, Neut # (Auto) 4.0, Lymph # (Auto) 1.8, [place] # (Auto) 0.3, Eos # (Auto) 0.0, Baso # (Auto) 0.1 08/26/20 17:00: Sodium 140, Potassium 4.1, Chloride 105, Carbon Dioxide 29, Anion Gap 10.1, BUN 14, Creatinine 0.60, Estimated Creat Clear 196, Estimated GFR 115, Est GFR ( Amer) 139, Glucose 121 H, Calcium 9.0, Total Bilirubin 0.4, AST 23, ALT 19, Alkaline Phosphatase 91, Total Protein 6.8, Albumin 4.2, Globulin 2.6, Albumin/Globulin Ratio 1.6, Amylase 66, Lipase 70 Result diagrams: 08/26/20 17:00 08/26/20 17:00 - Physician Consults Physician Consulted: Elías Time: 17:25 Reason -: Pt condition Comment/Response: Given patient's normal lipase, do not treat with opiates. See Dr. Escobar in the office tomorrow. I advised patient of plan. She requested Zofran. She declines Toradol. General Adult HPI - General Chief complaint: Abdominal Pain Stated complaint: abdominal pain Time Seen by Provider: 08/26/20 17:06 Mode of Arrival: Ambulatory Limitations: No Limitations Description of Symptoms (Recalled from ER Triage Doc. by RN): Pt complains of abd pain that starts midline lower abd wrapping around left quad and into back. Pt states she seen Dr. Escobar in office-- was instructed to come to ER if pain continued. Pt states that her pain has increased. - History of Present Illness HPI narrative: The patient has chronic abdominal pain, intermittently elevated lipase, diagnosed with chronic pancreatitis. Frequent emergency department visits for this condition. She was seen in this emergency department on 08/23/2020 and followed up with her primary care provider the same day. Started on Lortab 7.5 mg. She says she was told by her primary care doctor, Dr. Escobar, that if the pain medication did not work to come back to the emergency department. She says that the pain medication is not working and her pain is now moving to her left upper quadrant and radiating around to the back. Denies vomiting or fever or other new symptoms. 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 - Related Dennis
[2020-08-26 17:08] LABS: Appearance,Urine CLEAR (Clear); Blood, Urine 3+ (Negative); Color,Urine YELLOW (Yellow); Glucose,Urine (UA) Negative (Negative); Ketones,Urine TRACE (Negative); Leukocyte Esterase,Urine Negative (Negative); Nitrate,Urine Negative (Negative); Protein,Urine TRACE (Negative)
[2020-08-26 17:10] LABS: Chloride 105 mmol/L (98-107); Potassium 4.1 mmoL/L (3.5-5.1); Sodium 140 mmol/L (136-145)
[2020-08-26 17:10] LABS: Bilirubin,Urine Negative (Negative); Urine Pregnancy, HCG Qual. Negative (Negative)
[2020-08-26 17:11] LABS: Basophils # 0.1 K/mm3 (0-0.2); Basophils % 1.6 % (0.1-2.0); Eosinophils % 0.3 % (0.1-12.0); Hematocrit 38.2 % (37.0-47.0); Hemoglobin 12.8 g/dL (12.2-16.2); Lymphocytes # 1.8 K/mm3 (0.7-4.5); Lymphocytes % 28.6 % (10-50); Mean Corpuscular HGB Conc 33.6 g/dL (31.8-35.4); Mean Corpuscular Hemoglobin 29.7 pg (27.0-31.2); Mean Corpuscular Volume 88.5 fl (81-99); Mean Platelet Volume 8.1 fl (7.4-10.4); Monocytes # 0.3 K/mm3 (0.1-1.0); Monocytes % 5.2 % (1.7-9.3); Neutrophils % 64.4 % (37.0-80.0); Platelet Count 230 K/mm3 (142-424); Red Blood Count 4.32 M/mm3 (4.20-5.40); Red Cell Distribution Width 14.1 % (11.5-17.5); White Blood Count 6.3 K/mm3 (4.8-10.8)
[2020-08-26 17:12] LABS: Amylase 66 U/L (30-110); Blood Urea Nitrogen 14 mg/dl (7-17)
[2020-08-26 17:13] LABS: WBC,Urine Occasional #/hpf (0-3)
[2020-08-26 17:13] LABS: Alanine Aminotransferase 19 U/L (12-78); Albumin Level 4.2 g/dl (3.5-5.0); Albumin/Globulin Ratio 1.6 (1.1-1.8); Alkaline Phosphatase 91 U/L (38-126); Anion Gap 10.1 mEq/L (5-15); Aspartate Amino Transferase 23 U/L (14-36); Bilirubin,Total 0.4 mg/dl (0.2-1.3); Carbon Dioxide 29 mmol/L (22.0-30.0); Creatinine Clearance Estimated 196 mL/min (50-200); Estimated Glomerular Filt Rate 115 ml/min (>60); GFR (African American) 139 ML/MIN (>60); Globulin 2.6 g/dL (1.3-3.2); Glucose 121 mg/dl (74-100); Lipase 70 U/L (23-300); Total Protein,Serum 6.8 g/dl (6.3-8.2)
[2020-08-26 17:14] LABS: Amorphous Sediment,Urine 1+ /lpf; Bacteria,Urine 1+ /lpf; Squamous Epithelial Cell,Urine 20-50 #/hpf (0-5)
[2020-08-26 17:46] VITALS: BP 117/69; PULSE 63; RESP 16; TEMP 36.5; O2SAT 99
== END 2020-08-26 17:54 | disposition home or self-care (01) ==
PROVIDERS: Emergency Provider Emergency Medicine; PCP Family Medicine
DX: K85.90 Acute pancreatitis without necrosis or infection, unspecified (principal); E78.5 Hyperlipidemia, unspecified; F41.9 Anxiety disorder, unspecified; M79.7 Fibromyalgia; F17.210 Nicotine dependence, cigarettes, uncomplicated
CPT/HCPCS: 80053; 81001; 81025; 82150; 83690; 85025; 96374; 99281; 99282; J2405

== ENCOUNTER 2020-08-30 16:33 | Emergency (ER) | payer BC, SELFPAY ==
[2020-08-30 16:34] VITALS: BP 135/84; PULSE 83; RESP 18; TEMP 37; O2SAT 98; BMI 33.3
[2020-08-30 16:48] LABS: Appearance,Urine CLEAR (Clear); Bilirubin,Urine Negative (Negative); Blood, Urine Negative (Negative); Color,Urine YELLOW (Yellow); Glucose,Urine (UA) Negative (Negative); Ketones,Urine Negative (Negative); Leukocyte Esterase,Urine Negative (Negative); Microscopic, Urine URINE MICROSCOPIC (MICROSCOPIC); Nitrate,Urine Negative (Negative); PH,Urine 7.5 (5.0-8.5); Protein,Urine Negative (Negative); Urobilinogen,Urine 0.2 EU/dl (0.2)
--- NOTE | 2020-08-30 16:50 | HMH.EDGENADL ---
ED Disposition Clinical Impression: Chronic abdominal pain Chronic pancreatitis Qualifiers: Pancreatitis type: unspecified pancreatitis type Qualified Code(s): K86.1 - Other chronic pancreatitis Disposition: Home, Self-Care Condition on Discharge: Good Additional Instructions: Follow-up with Dr. Escobar at 830 tomorrow morning. Return to the emergency department for fever, vomiting. Take home medications as directed. Referrals: Elmo Escobar MD [Primary Care Provider] - 08/31/20 8:30 am Time of Disposition: 17:36 - Critical Care Critical Care Time: No Attestation: On , the high probability of a clinically significant, sudden or life threatening deterioration of the following system(s) required my full and direct attention, intervention and personal management. The time I documented below is in addition to time spent performing reported procedures but includes the following listed in this critical care notation. Medical Decision Making - Medical Records Medical records reviewed: Yes: I reviewed the patient's medical records. - Ramses Inquiry Pt receiving controlled substance: No Vital Signs: 08/30/20 16:34 Temperature 98.6 F Temperature Source Oral Pulse Rate [Right] 83 Respiratory Rate 18 Blood Pressure [Right Arm] 135/84 Blood Pressure Mean [Right Arm] 101 Blood Pressure Source [Right Arm] Automatic Cuff 02 Sat by Pulse Oximetry 98 Oxygen Delivery Method Room Air - Lab Data Lab results reviewed: Yes: I reviewed the patient's lab results. Lab Results 08/30/20 16:30: Urine Color Yellow, Urine Appearance Clear, Urine pH 7.5, Ur Specific [place] 1.010, Urine Protein Negative, Urine Glucose (UA) Negative, Urine Ketones Negative, Urine Blood Negative, Urine Nitrate Negative, Urine Bilirubin Negative, Urine Urobilinogen 0.2, Ur Leukocyte Esterase Negative, Urine WBC 3-5, Ur Squamous Epith Cells 3-5 08/30/20 16:52: WBC 13.2 H, RBC 4.33, Hgb 13.0, Hct 37.6, MCV 86.8, MCH 29.9, MCHC 34.4, RDW 13.9, Plt Count 275, MPV 7.8, Neut % (Auto) 75.5, Lymph % (Auto) 19.2, [place] % (Auto) 3.8, Eos % (Auto) 0.7, Baso % (Auto) 0.9, Neut # (Auto) 10.0 H, Lymph # (Auto) 2.5, [place] # (Auto) 0.5, Eos # (Auto) 0.1, Baso # (Auto) 0.1 08/30/20 16:52: Sodium 137, Potassium 4.3, Chloride 102, Carbon Dioxide 22, Anion Gap 17.3 H, BUN 12, Creatinine 0.50 L, Estimated Creat Clear 229, Estimated GFR 142, Est GFR ( Amer) 172, Glucose 101 H, Calcium 9.3, Total Bilirubin 0.5, AST 35, ALT 19, Alkaline Phosphatase 74, Total Protein 7.6, Albumin 4.7, Globulin 2.9, Albumin/Globulin Ratio 1.6, Lipase 358 H Result diagrams: 08/30/20 16:52 08/30/20 16:52 Orders (Tests/Meds): ED MEDICATIONS Generic Name Dose Route Start Last Admin Trade Name Freq PRN Reason Stop Dose Admin Lactated Ringer's 1,000 mls @ 999 mls/hr 08/30/20 16:45 08/30/20 16:45 Lactated Ringer's 1000 Ml Bag IV 08/30/20 17:45 999 mls/hr .Q1H1M INO Administration Discontinued Medications Generic Name Dose Route Start Last Admin Trade Name Freq PRN Reason Stop Dose Admin Ondansetron HCl 4 mg 08/30/20 16:55 08/30/20 16:58 Ondansetron 4mg/2ml Vial IV 08/30/20 16:56 4 mg ONCE ONE Administration Medical Decision Narrative: 34yo F well-known to the emergency department for chronic abdominal pain. Patient is in no acute distress on evaluation today. Her heart rate is in the 80s and her blood pressure is normal. Patient's physical exam is minimally impressive for mild tenderness. Standard laboratory orders are collected and the patient's lipase is 358. On August 26 it was 70. While elevated, it is still within the patient's typical range. Patient's urinalysis is unremarkable. Patient is noted to have slight elevation of her white blood cells at 13.3. Patient's last CT scan was late July. She has had numerous other scans in the past. Case discussed with Dr. Escobar and he request the patient be hydrated and discharged home. He plans to follow-up with
[2020-08-30 17:02] LABS: Basophils # 0.1 K/mm3 (0-0.2); Basophils % 0.9 % (0.1-2.0); Eosinophils # 0.1 K/mm3 (0.0-0.4); Eosinophils % 0.7 % (0.1-12.0); Hematocrit 37.6 % (37.0-47.0); Lymphocytes # 2.5 K/mm3 (0.7-4.5); Lymphocytes % 19.2 % (10-50); Mean Corpuscular HGB Conc 34.4 g/dL (31.8-35.4); Mean Corpuscular Hemoglobin 29.9 pg (27.0-31.2); Mean Corpuscular Volume 86.8 fl (81-99); Mean Platelet Volume 7.8 fl (7.4-10.4); Monocytes # 0.5 K/mm3 (0.1-1.0); Monocytes % 3.8 % (1.7-9.3); Neutrophils % 75.5 % (37.0-80.0); Platelet Count 275 K/mm3 (142-424); Red Blood Count 4.33 M/mm3 (4.20-5.40); Red Cell Distribution Width 13.9 % (11.5-17.5); White Blood Count 13.2 K/mm3 (4.8-10.8)
[2020-08-30 17:05] LABS: Chloride 102 mmol/L (98-107)
[2020-08-30 17:06] LABS: Potassium 4.3 mmoL/L (3.5-5.1); Sodium 137 mmol/L (136-145)
[2020-08-30 17:08] LABS: Alanine Aminotransferase 19 U/L (12-78); Alkaline Phosphatase 74 U/L (38-126); Aspartate Amino Transferase 35 U/L (14-36); Bilirubin,Total 0.5 mg/dl (0.2-1.3); Blood Urea Nitrogen 12 mg/dl (7-17); Creatinine Clearance Estimated 229 mL/min (50-200); Estimated Glomerular Filt Rate 142 ml/min (>60); GFR (African American) 172 ML/MIN (>60)
[2020-08-30 17:09] LABS: Albumin Level 4.7 g/dl (3.5-5.0); Albumin/Globulin Ratio 1.6 (1.1-1.8); Anion Gap 17.3 mEq/L (5-15); Calcium 9.3 mg/dl (8.4-10.2); Carbon Dioxide 22 mmol/L (22.0-30.0); Globulin 2.9 g/dL (1.3-3.2); Glucose 101 mg/dl (74-100); Lipase 358 U/L (23-300); Total Protein,Serum 7.6 g/dl (6.3-8.2)
[2020-08-30 18:01] VITALS: BP 119/84; PULSE 74; RESP 16; TEMP 36.9; O2SAT 98
== END 2020-08-30 18:03 | disposition home or self-care (01) ==
PROVIDERS: Emergency Provider Family Medicine; PCP Family Medicine
DX: K86.1 Other chronic pancreatitis (principal); F41.9 Anxiety disorder, unspecified; E78.5 Hyperlipidemia, unspecified; F17.210 Nicotine dependence, cigarettes, uncomplicated; Z79.899 Other long term (current) drug therapy
CPT/HCPCS: 80053; 81001; 83690; 85025; 96365; 99281; 99282; J2405

== ENCOUNTER 2020-09-01 21:11 | Emergency (ER) | payer BC, SELFPAY ==
[2020-09-01 22:08] VITALS: BP 139/74; PULSE 74; RESP 16; TEMP 37.4; O2SAT 99; BMI 34.9
[2020-09-01 22:37] LABS: Basophils # 0.2 K/mm3 (0-0.2); Eosinophils % 0.1 % (0.1-12.0); Hematocrit 36.6 % (37.0-47.0); Hemoglobin 12.5 g/dL (12.2-16.2); Lymphocytes # 3.3 K/mm3 (0.7-4.5); Lymphocytes % 45.1 % (10-50); Mean Corpuscular HGB Conc 34.1 g/dL (31.8-35.4); Mean Corpuscular Hemoglobin 30.4 pg (27.0-31.2); Mean Corpuscular Volume 89.2 fl (81-99); Mean Platelet Volume 7.7 fl (7.4-10.4); Monocytes # 0.3 K/mm3 (0.1-1.0); Neutrophils # 3.6 K/mm3 (1.8-7.8); Neutrophils % 48.8 % (37.0-80.0); Platelet Count 244 K/mm3 (142-424); Red Cell Distribution Width 13.9 % (11.5-17.5); White Blood Count 7.3 K/mm3 (4.8-10.8)
[2020-09-01 22:40] LABS: Alanine Aminotransferase 19 U/L (12-78); Albumin Level 4.1 g/dl (3.5-5.0); Albumin/Globulin Ratio 1.6 (1.1-1.8); Alkaline Phosphatase 63 U/L (38-126); Amylase 194 U/L (30-110); Anion Gap 13.6 mEq/L (5-15); Aspartate Amino Transferase 27 U/L (14-36); Blood Urea Nitrogen 8 mg/dl (7-17); Calcium 8.7 mg/dl (8.4-10.2); Carbon Dioxide 26 mmol/L (22.0-30.0); Chloride 106 mmol/L (98-107); Creatinine Clearance Estimated 201 mL/min (50-200); Estimated Glomerular Filt Rate 115 ml/min (>60); GFR (African American) 139 ML/MIN (>60); Globulin 2.6 g/dL (1.3-3.2); Glucose 86 mg/dl (74-100); Potassium 4.6 mmoL/L (3.5-5.1); Sodium 141 mmol/L (136-145); Total Protein,Serum 6.7 g/dl (6.3-8.2)
[2020-09-01 22:41] LABS: Bilirubin,Total 0.1 mg/dl (0.2-1.3); Lipase 1063 U/L (23-300)
[2020-09-02] VITALS (10 sets, daily range): BP systolic 111–154; BP diastolic 69–106; PULSE 51–71; RESP 14–74; TEMP 37.4; O2SAT 94–98
--- NOTE | 2020-09-02 02:10 | HMH.EDGENADL ---
ED Disposition Clinical Impression: Acute pancreatitis Qualifiers: Pancreatitis type: unspecified pancreatitis type Acute pancreatitis complication: no infection or necrosis Qualified Code(s): K85.90 - Acute pancreatitis without necrosis or infection, unspecified Disposition: Home, Self-Care Condition on Discharge: Good Instructions: DI for Pancreatitis Additional Instructions: fluids and see pcp for follow up Referrals: Jose Angel Park [Staff Physician] - Elmo Escobar MD [Primary Care Provider] - - Critical Care Critical Care Time: No Attestation: On 09/01/20, the high probability of a clinically significant, sudden or life threatening deterioration of the following system(s) required my full and direct attention, intervention and personal management. The time I documented below is in addition to time spent performing reported procedures but includes the following listed in this critical care notation. Medical Decision Making - Medical Records Medical records reviewed: Yes: I reviewed the patient's medical records. - Ramses Inquiry Pt receiving controlled substance: No Vital Signs: 09/01/20 22:08 09/02/20 01:35 09/02/20 02:00 Temperature 99.4 F Temperature Source Oral Pulse Rate 69 Pulse Rate [Right Brachial] 74 Respiratory Rate 16 74 H Blood Pressure 142/97 H 154/106 H Blood Pressure [Left Arm] 139/74 Blood Pressure Mean [Left Arm] 95 Blood Pressure Source [Left Arm] Automatic Cuff Blood Pressure Position [Left Arm] Sitting 02 Sat by Pulse Oximetry 99 96 96 Oxygen Delivery Method Room Air 09/02/20 02:30 09/02/20 03:00 09/02/20 03:30 Temperature Temperature Source Pulse Rate 71 62 60 Pulse Rate [Right Brachial] Respiratory Rate 16 Blood Pressure 135/91 H 117/69 111/70 Blood Pressure [Left Arm] Blood Pressure Mean [Left Arm] Blood Pressure Source [Left Arm] Blood Pressure Position [Left Arm] 02 Sat by Pulse Oximetry 94 L 94 L 95 Oxygen Delivery Method Room Air Room Air Room Air 09/02/20 04:00 09/02/20 04:30 09/02/20 05:00 Temperature Temperature Source Pulse Rate 51 L 57 L 53 L Pulse Rate [Right Brachial] Respiratory Rate 14 14 14 Blood Pressure 127/85 140/82 127/81 Blood Pressure [Left Arm] Blood Pressure Mean [Left Arm] Blood Pressure Source [Left Arm] Blood Pressure Position [Left Arm] 02 Sat by Pulse Oximetry 95 97 96 Oxygen Delivery Method Room Air Room Air Room Air 09/02/20 06:23 Temperature Temperature Source Pulse Rate 58 L Pulse Rate [Right Brachial] Respiratory Rate 14 Blood Pressure 124/94 H Blood Pressure [Left Arm] Blood Pressure Mean [Left Arm] Blood Pressure Source [Left Arm] Blood Pressure Position [Left Arm] 02 Sat by Pulse Oximetry 98 Oxygen Delivery Method Room Air - Lab Data Lab results reviewed: Yes: I reviewed the patient's lab results. Lab Results 09/01/20 22:10: WBC 7.3 D, RBC 4.10 L, Hgb 12.5, Hct 36.6 L, MCV 89.2, MCH 30.4, MCHC 34.1, RDW 13.9, Plt Count 244, MPV 7.7, Neut % (Auto) 48.8, Lymph % (Auto) 45.1, [place] % (Auto) 4.0, Eos % (Auto) 0.1, Baso % (Auto) 2.0, Neut # (Auto) 3.6, Lymph # (Auto) 3.3, [place] # (Auto) 0.3, Eos # (Auto) 0.0, Baso # (Auto) 0.2 09/01/20 22:10: Sodium 141, Potassium 4.6, Chloride 106, Carbon Dioxide 26, Anion Gap 13.6, BUN 8 D, Creatinine 0.60, Estimated Creat Clear 201, Estimated GFR 115, Est GFR ( Amer) 139, Glucose 86, Calcium 8.7, Total Bilirubin 0.1 L, AST 27, ALT 19, Alkaline Phosphatase 63, Total Protein 6.7, Albumin 4.1, Globulin 2.6, Albumin/Globulin Ratio 1.6, Amylase 194 H, Lipase 1063 H 09/02/20 07:15: Lipase 602 H Result diagrams: 09/01/20 22:10 09/01/20 22:10 Orders (Tests/Meds): ED MEDICATIONS Generic Name Dose Route Start Last Admin Trade Name Freq PRN Reason Stop Dose Admin Sodium Chloride 1,000 mls @ 999 mls/hr 09/02/20 01:45 09/02/20 01:38 Sod Chlor 0.9% 1000ml Bag IV 09/02/20 02:45 999 mls/hr .Q1H1M S
[2020-09-02 07:34] LABS: Lipase 602 U/L (23-300)
--- NOTE | 2020-09-02 07:34 | PC.NURSE ---
Lipase 602 per lab. reported to Papito tan, RN
--- NOTE | 2020-09-02 07:43 | PC.NURSE ---
Called patient's mother with patient permission at this time, Asiya. Asiya agreed to come get patient at this time
== END 2020-09-02 08:25 | disposition home or self-care (01) ==
PROVIDERS: Emergency Provider Emergency Medicine; PCP Family Medicine
DX: K85.90 Acute pancreatitis without necrosis or infection, unspecified (principal); F41.9 Anxiety disorder, unspecified; E78.5 Hyperlipidemia, unspecified
CPT/HCPCS: 80053; 82150; 83690; 85025; 96365; 96375; 96376; 99282; 99283; J2405

== ENCOUNTER 2020-09-18 09:52 | Emergency (ER) | payer BC, SELFPAY ==
[2020-09-18 09:53] VITALS: BP 140/97; PULSE 94; RESP 18; TEMP 37.1; O2SAT 98; BMI 33.3
[2020-09-18 10:36] LABS: Microscopic, Urine URINE MICROSCOPIC (MICROSCOPIC)
[2020-09-18 10:40] VITALS: BP 122/74; PULSE 94; RESP 16; O2SAT 96
--- NOTE | 2020-09-18 10:40 | HMH.EDGENADL ---
ED Disposition Clinical Impression: Chronic pancreatitis Qualifiers: Pancreatitis type: unspecified pancreatitis type Qualified Code(s): K86.1 - Other chronic pancreatitis Disposition: Home, Self-Care Condition on Discharge: Good Instructions: DI for Acute Abdominal Pain Prescriptions: Ondansetron [Zofran 4mg ODT] 4 mg PO TIDP PRN #12 tab PRN Reason: Nausea Transmission Status: Received by [facility] Referrals: Elmo Escobar MD [Primary Care Provider] - - Critical Care Critical Care Time: No Attestation: On 09/18/20, the high probability of a clinically significant, sudden or life threatening deterioration of the following system(s) required my full and direct attention, intervention and personal management. The time I documented below is in addition to time spent performing reported procedures but includes the following listed in this critical care notation. Medical Decision Making - Medical Records Medical records reviewed: Yes: I reviewed the patient's medical records. - Ramses Inquiry Pt receiving controlled substance: No Vital Signs: 09/18/20 09:53 09/18/20 10:40 09/18/20 13:00 Temperature 98.8 F 98.1 F Temperature Source Oral Oral Pulse Rate 94 H 67 Pulse Rate [Right] 94 H Respiratory Rate 18 16 18 Blood Pressure 122/74 128/81 Blood Pressure [Right Arm] 140/97 H Blood Pressure Mean [Right Arm] 111 Blood Pressure Source Automatic Cuff Blood Pressure Position Sitting 02 Sat by Pulse Oximetry 98 96 Oxygen Delivery Method Room Air Room Air - Lab Data Lab Results 09/18/20 10:26: Urine Color Yellow, Urine Appearance Clear, Urine pH 5.5, Ur Specific [place] 1.010, Urine Protein Negative, Urine Glucose (UA) Negative, Urine Ketones Negative, Urine Blood Negative, Urine Nitrate Negative, Urine Bilirubin Negative, Urine Urobilinogen 0.2, Ur Leukocyte Esterase Negative, Urine RBC None, Urine WBC Occasional, Ur Squamous Epith Cells 3-5, Urine Bacteria None 09/18/20 10:26: WBC 7.4, RBC 4.08 L, Hgb 11.8 L, Hct 37.2, MCV 91.3, MCH 28.9, MCHC 31.6 L, RDW 13.7, Plt Count 227, MPV 7.9, Neut % (Auto) 66.7, Lymph % (Auto) 27.3, [place] % (Auto) 4.8, Eos % (Auto) 0.2, Baso % (Auto) 1.1, Neut # (Auto) 5.0, Lymph # (Auto) 2.0, [place] # (Auto) 0.4, Eos # (Auto) 0.0, Baso # (Auto) 0.1 09/18/20 10:26: Urine HCG, Qual Negative 09/18/20 10:26: Sodium 140, Potassium 3.6, Chloride 108 H, Carbon Dioxide 19 L, Anion Gap 16.6 H, BUN 9, Creatinine 0.50 L, Estimated Creat Clear 229, Estimated GFR 142, Est GFR ( Amer) 172, Glucose 92, Calcium 8.6, Total Bilirubin 0.3, AST 26, ALT 19, Alkaline Phosphatase 86, Total Protein 6.4, Albumin 3.9, Globulin 2.5, Albumin/Globulin Ratio 1.6, Amylase 238 H, Lipase 1119 H Result diagrams: 09/18/20 10:26 09/18/20 10:26 Orders (Tests/Meds): ED MEDICATIONS Discontinued Medications Generic Name Dose Route Start Last Admin Trade Name Freq PRN Reason Stop Dose Admin Sodium Chloride 1,000 mls @ 999 mls/hr 09/18/20 10:30 09/18/20 10:33 Sod Chlor 0.9% 1000ml Bag IV 09/18/20 11:30 999 mls/hr .Q1H1M INO Administration Ketorolac Tromethamine 15 mg 09/18/20 10:18 09/18/20 10:32 Ketorolac 30mg/Ml Vial IV 09/18/20 10:19 15 mg ONCE ONE Administration Ondansetron HCl 4 mg 09/18/20 10:18 09/18/20 10:32 Ondansetron 4mg/2ml Vial IV 09/18/20 10:19 4 mg ONCE ONE Administration Ondansetron HCl 4 mg 09/18/20 13:07 09/18/20 13:11 Ondansetron 4mg Odt SL 09/18/20 13:08 4 mg ONCE ONE Administration Oxycodone/Acetaminophen 1 each 09/18/20 13:01 09/18/20 13:10 Oxycodone 10mg W/Apap 325mg Tablet PO 09/18/20 13:02 1 each ONCE ONE Administration Medical Decision Narrative: 34-year-old female who is well-known to the department for chronic pancreatitis presents with reported acute flare of vomiting and epigastric abdominal pain. She was initially treated with 1 L IV fluid bolus for milligrams IV Zofran and IV Toradol.
[2020-09-18 10:41] LABS: Appearance,Urine CLEAR (Clear); Basophils # 0.1 K/mm3 (0-0.2); Basophils % 1.1 % (0.1-2.0); Bilirubin,Urine Negative (Negative); Blood, Urine Negative (Negative); Color,Urine YELLOW (Yellow); Eosinophils % 0.2 % (0.1-12.0); Glucose,Urine (UA) Negative (Negative); Hematocrit 37.2 % (37.0-47.0); Hemoglobin 11.8 g/dL (12.2-16.2); Ketones,Urine Negative (Negative); Leukocyte Esterase,Urine Negative (Negative); Lymphocytes % 27.3 % (10-50); Mean Corpuscular HGB Conc 31.6 g/dL (31.8-35.4); Mean Corpuscular Hemoglobin 28.9 pg (27.0-31.2); Mean Corpuscular Volume 91.3 fl (81-99); Mean Platelet Volume 7.9 fl (7.4-10.4); Monocytes # 0.4 K/mm3 (0.1-1.0); Monocytes % 4.8 % (1.7-9.3); Neutrophils % 66.7 % (37.0-80.0); Nitrate,Urine Negative (Negative); PH,Urine 5.5 (5.0-8.5); Platelet Count 227 K/mm3 (142-424); Protein,Urine Negative (Negative); Red Blood Count 4.08 M/mm3 (4.20-5.40); Red Cell Distribution Width 13.7 % (11.5-17.5); Urine Pregnancy, HCG Qual. Negative (Negative); Urobilinogen,Urine 0.2 EU/dl (0.2); White Blood Count 7.4 K/mm3 (4.8-10.8)
[2020-09-18 10:49] LABS: Alanine Aminotransferase 19 U/L (12-78); Albumin Level 3.9 g/dl (3.5-5.0); Albumin/Globulin Ratio 1.6 (1.1-1.8); Alkaline Phosphatase 86 U/L (38-126); Amylase 238 U/L (30-110); Anion Gap 16.6 mEq/L (5-15); Aspartate Amino Transferase 26 U/L (14-36); Bilirubin,Total 0.3 mg/dl (0.2-1.3); Blood Urea Nitrogen 9 mg/dl (7-17); Calcium 8.6 mg/dl (8.4-10.2); Carbon Dioxide 19 mmol/L (22.0-30.0); Chloride 108 mmol/L (98-107); Creatinine Clearance Estimated 229 mL/min (50-200); Estimated Glomerular Filt Rate 142 ml/min (>60); GFR (African American) 172 ML/MIN (>60); Globulin 2.5 g/dL (1.3-3.2); Glucose 92 mg/dl (74-100); Potassium 3.6 mmoL/L (3.5-5.1); Sodium 140 mmol/L (136-145); Total Protein,Serum 6.4 g/dl (6.3-8.2)
[2020-09-18 10:50] LABS: WBC,Urine Occasional #/hpf (0-3)
[2020-09-18 10:53] LABS: Lipase 1119 U/L (23-300)
--- NOTE | 2020-09-18 10:59 | PC.NURSE ---
notified ER of pt critical lipase results were called per heber in lab, pt name and
--- NOTE | 2020-09-18 11:00 | PC.NURSE ---
PT NOTIFIED THAT PT CONTINUES TO C/O PAIN WITH NO RELIEF WITH MEDS GIVEN.
[2020-09-18 13:00] VITALS: BP 128/81; PULSE 67; RESP 18; TEMP 36.7; O2SAT 98
--- NOTE | 2020-09-18 13:10 | PC.NURSE ---
PT BEING D/C MOM IS SITTING IN CAR TO DRIVE PT
== END 2020-09-18 13:15 | disposition home or self-care (01) ==
PROVIDERS: Emergency Provider Student in an Organized Health Care Education/Training Program; PCP Family Medicine
DX: K86.1 Other chronic pancreatitis (principal); R10.12 Left upper quadrant pain; E78.5 Hyperlipidemia, unspecified; F41.9 Anxiety disorder, unspecified; M79.7 Fibromyalgia; F17.210 Nicotine dependence, cigarettes, uncomplicated; Z79.899 Other long term (current) drug therapy
CPT/HCPCS: 80053; 81001; 81025; 82150; 83690; 85025; 96365; 99283; J2405

== ENCOUNTER 2020-09-19 20:38 | Emergency (ER) | payer BC, SELFPAY ==
[2020-09-19 20:40] VITALS: BP 143/72; PULSE 90; RESP 16; TEMP 36.7; O2SAT 97; BMI 33.3
[2020-09-19 20:45] VITALS: BP 143/72; PULSE 95; O2SAT 96
--- NOTE | 2020-09-19 20:51 | HMH.EDGENADL ---
ED Disposition Clinical Impression: Acute pancreatitis Qualifiers: Pancreatitis type: biliary Acute pancreatitis complication: no infection or necrosis Qualified Code(s): K85.10 - Biliary acute pancreatitis without necrosis or infection Disposition: Home, Self-Care Condition on Discharge: Good Additional Instructions: Follow-up with your primary care doctor tomorrow. Return to the emergency department for any new or worsening symptoms. Referrals: Elmo Escobar MD [Primary Care Provider] - - Critical Care Critical Care Time: No Attestation: On 09/19/20, the high probability of a clinically significant, sudden or life threatening deterioration of the following system(s) required my full and direct attention, intervention and personal management. The time I documented below is in addition to time spent performing reported procedures but includes the following listed in this critical care notation. Medical Decision Making - Ramses Inquiry Pt receiving controlled substance: Yes Ramses was queried for this patient: Yes Risks and benefits of using a controlled substance: were discussed with pt by me Vital Signs: 09/19/20 20:40 09/19/20 20:45 09/19/20 21:46 Temperature 98.1 F Temperature Source Oral Pulse Rate 95 H 80 Pulse Rate [Right] 90 Respiratory Rate 16 Blood Pressure 143/72 H 151/101 H Blood Pressure [Right Arm] 143/72 H Blood Pressure Mean [Right Arm] 95 02 Sat by Pulse Oximetry 97 96 98 - Lab Data Lab Results 09/19/20 21:00: WBC 10.4 D, RBC 4.28, Hgb 12.8, Hct 38.1, MCV 89.0, MCH 29.9, MCHC 33.6, RDW 14.3, Plt Count 263, MPV 7.8, Neut % (Auto) 60.5, Lymph % (Auto) 33.5, [place] % (Auto) 4.1, Eos % (Auto) 0.8, Baso % (Auto) 1.1, Neut # (Auto) 6.3, Lymph # (Auto) 3.5, [place] # (Auto) 0.4, Eos # (Auto) 0.1, Baso # (Auto) 0.1 09/19/20 21:00: Sodium 138, Potassium 4.0, Chloride 102, Carbon Dioxide 29 D, Anion Gap 11.0, BUN 9, Creatinine 0.60, Estimated Creat Clear 191, Estimated GFR 115, Est GFR ( Amer) 139, Glucose 114 H, Calcium 9.1, Total Bilirubin 0.2, AST 22, ALT 19, Alkaline Phosphatase 78, Total Protein 6.7, Albumin 4.1, Globulin 2.6, Albumin/Globulin Ratio 1.6, Amylase 249 H, Lipase 953 H 09/19/20 21:30: Urine Color Yellow, Urine Appearance Sl cloudy, Urine pH 5.5, Ur Specific [place] >= 1.030, Urine Protein Negative, Urine Glucose (UA) Negative, Urine Ketones Negative, Urine Blood 3+, Urine Nitrate Negative, Urine Bilirubin Negative, Urine Urobilinogen 0.2, Ur Leukocyte Esterase Negative, Urine RBC 50-100, Urine WBC Occasional, Ur Squamous Epith Cells 3-5, Urine Bacteria Trace, Urine Mucus 1+ Result diagrams: 09/19/20 21:00 09/19/20 21:00 Orders (Tests/Meds): ED MEDICATIONS Generic Name Dose Route Start Last Admin Trade Name Freq PRN Reason Stop Dose Admin Lactated Ringer's 1,000 mls @ 999 mls/hr 09/19/20 21:00 09/19/20 21:12 Lactated Ringer's 1000 Ml Bag IV 09/19/20 22:00 999 mls/hr .Q1H1M INO Administration Discontinued Medications Generic Name Dose Route Start Last Admin Trade Name Freq PRN Reason Stop Dose Admin Hydromorphone HCl 1 mg 09/19/20 22:57 09/19/20 22:59 Hydromorphone 2mg/Ml Syringe IV 09/19/20 22:58 1 mg ONCE ONE Administration Ketorolac Tromethamine 30 mg 09/19/20 21:00 09/19/20 21:12 Ketorolac 30mg/Ml Vial IV 09/19/20 21:01 30 mg ONCE ONE Administration Ondansetron HCl 4 mg 09/19/20 21:00 09/19/20 21:12 Ondansetron 4mg/2ml Vial IV 09/19/20 21:01 4 mg ONCE ONE Administration Medical Decision Narrative: The patient is a 34-year-old female with history of chronic pancreatitis who presents to the emergency department with epigastric abdominal pain, vomiting, unable to tolerate p.o. He also complains of [place] frequency. Differential diagnosis includes acute on chronic pancreatitis, UTI, dehydration. Given this plan to obtain CBC, CMP, amylase, lipase, urinalysis. The patient was given IV fluids, Toradol, an
[2020-09-19 21:17] LABS: Basophils # 0.1 K/mm3 (0-0.2); Basophils % 1.1 % (0.1-2.0); Eosinophils # 0.1 K/mm3 (0.0-0.4); Eosinophils % 0.8 % (0.1-12.0); Hematocrit 38.1 % (37.0-47.0); Hemoglobin 12.8 g/dL (12.2-16.2); Lymphocytes # 3.5 K/mm3 (0.7-4.5); Lymphocytes % 33.5 % (10-50); Mean Corpuscular HGB Conc 33.6 g/dL (31.8-35.4); Mean Corpuscular Hemoglobin 29.9 pg (27.0-31.2); Mean Platelet Volume 7.8 fl (7.4-10.4); Monocytes # 0.4 K/mm3 (0.1-1.0); Monocytes % 4.1 % (1.7-9.3); Neutrophils # 6.3 K/mm3 (1.8-7.8); Neutrophils % 60.5 % (37.0-80.0); Platelet Count 263 K/mm3 (142-424); Red Blood Count 4.28 M/mm3 (4.20-5.40); Red Cell Distribution Width 14.3 % (11.5-17.5); White Blood Count 10.4 K/mm3 (4.8-10.8)
[2020-09-19 21:20] LABS: Chloride 102 mmol/L (98-107); Sodium 138 mmol/L (136-145)
[2020-09-19 21:22] LABS: Amylase 249 U/L (30-110); Blood Urea Nitrogen 9 mg/dl (7-17); Creatinine Clearance Estimated 191 mL/min (50-200); Estimated Glomerular Filt Rate 115 ml/min (>60); GFR (African American) 139 ML/MIN (>60)
[2020-09-19 21:23] LABS: Alanine Aminotransferase 19 U/L (12-78); Albumin Level 4.1 g/dl (3.5-5.0); Albumin/Globulin Ratio 1.6 (1.1-1.8); Alkaline Phosphatase 78 U/L (38-126); Aspartate Amino Transferase 22 U/L (14-36); Bilirubin,Total 0.2 mg/dl (0.2-1.3); Calcium 9.1 mg/dl (8.4-10.2); Carbon Dioxide 29 mmol/L (22.0-30.0); Globulin 2.6 g/dL (1.3-3.2); Glucose 114 mg/dl (74-100); Total Protein,Serum 6.7 g/dl (6.3-8.2)
[2020-09-19 21:25] LABS: Lipase 953 U/L (23-300)
--- NOTE | 2020-09-19 21:31 | PC.NURSE ---
chintand notified critical lipase 769
[2020-09-19 21:33] LABS: Microscopic, Urine URINE MICROSCOPIC (MICROSCOPIC)
[2020-09-19 21:44] LABS: Appearance,Urine SL CLOUDY (Clear); Bilirubin,Urine Negative (Negative); Blood, Urine 3+ (Negative); Color,Urine YELLOW (Yellow); Glucose,Urine (UA) Negative (Negative); Ketones,Urine Negative (Negative); Leukocyte Esterase,Urine Negative (Negative); Nitrate,Urine Negative (Negative); PH,Urine 5.5 (5.0-8.5); Protein,Urine Negative (Negative); Specific Gravity, Urine >= 1.030 (1.005-1.030); Urobilinogen,Urine 0.2 EU/dl (0.2)
[2020-09-19 21:46] VITALS: BP 151/101; PULSE 80; O2SAT 98
[2020-09-19 21:50] LABS: WBC,Urine Occasional #/hpf (0-3)
[2020-09-19 21:51] LABS: Bacteria,Urine Trace /lpf; Mucus,Urine 1+ /lpf; RBC,Urine 50-100 #/hpf (0-3)
[2020-09-19 23:13] VITALS: BP 145/79; PULSE 78; RESP 18; TEMP 526.6; TEMP 980; O2SAT 98
== END 2020-09-19 23:17 | disposition home or self-care (01) ==
PROVIDERS: Emergency Provider Emergency Medicine; PCP Family Medicine
DX: K85.10 Biliary acute pancreatitis without necrosis or infection (principal); F41.8 Other specified anxiety disorders; E78.5 Hyperlipidemia, unspecified; M79.7 Fibromyalgia; F17.210 Nicotine dependence, cigarettes, uncomplicated; Z79.899 Other long term (current) drug therapy
CPT/HCPCS: 80053; 81001; 82150; 83690; 85025; 96365; 96375; 99283; J2405

== ENCOUNTER 2020-09-20 20:35 | Emergency (ER) | payer BC, SELFPAY ==
[2020-09-20 20:46] VITALS: BP 134/82; PULSE 105; RESP 16; TEMP 37; O2SAT 98; BMI 33.3
[2020-09-20 21:00] VITALS: BP 130/77; PULSE 104; O2SAT 95
--- NOTE | 2020-09-20 21:06 | HMH.EDGENADL ---
ED Disposition Clinical Impression: Epigastric pain Disposition: Home, Self-Care Condition on Discharge: Fair Additional Instructions: See your primary care provider tomorrow. Referrals: Elmo Escobar MD [Primary Care Provider] - - Critical Care Critical Care Time: No Attestation: On 09/20/20, the high probability of a clinically significant, sudden or life threatening deterioration of the following system(s) required my full and direct attention, intervention and personal management. The time I documented below is in addition to time spent performing reported procedures but includes the following listed in this critical care notation. Medical Decision Making - Medical Records Medical records reviewed: Yes: I reviewed the patient's medical records. MR Comment: 7 emergency department visits this month. This is her third visit in 3 days. - Ramses Inquiry Pt receiving controlled substance: No Ramses was queried for this patient: Yes Vital Signs: 09/20/20 20:46 09/20/20 21:00 09/20/20 21:22 Temperature 98.6 F Temperature Source Oral Pulse Rate 104 H 114 H Pulse Rate [Left Radial] 105 H Respiratory Rate 16 Blood Pressure 130/77 122/77 Blood Pressure [Right Arm] 134/82 Blood Pressure Mean 90 92 Blood Pressure Mean [Right Arm] 99 Blood Pressure Source Blood Pressure Source [Right Arm] Automatic Cuff Blood Pressure Position Blood Pressure Position [Right Arm] Sitting 02 Sat by Pulse Oximetry 98 95 94 L Oxygen Delivery Method Room Air 09/20/20 21:30 09/20/20 22:00 09/20/20 23:33 Temperature 98.1 F Temperature Source Oral Pulse Rate 120 H 89 87 Pulse Rate [Left Radial] Respiratory Rate 17 Blood Pressure 132/82 132/78 128/88 Blood Pressure [Right Arm] Blood Pressure Mean 93 92 Blood Pressure Mean [Right Arm] Blood Pressure Source Automatic Cuff Blood Pressure Source [Right Arm] Blood Pressure Position Sitting Blood Pressure Position [Right Arm] 02 Sat by Pulse Oximetry 94 L 94 L Oxygen Delivery Method Room Air - Lab Data Lab Results 09/20/20 21:13: WBC 9.6, RBC 4.37, Hgb 13.0, Hct 38.4, MCV 87.9, MCH 29.7, MCHC 33.7, RDW 14.4, Plt Count 218, MPV 8.4, Neut % (Auto) 67.0, Lymph % (Auto) 26.2, [place] % (Auto) 5.3, Eos % (Auto) 0.8, Baso % (Auto) 0.8, Neut # (Auto) 6.4, Lymph # (Auto) 2.5, [place] # (Auto) 0.5, Eos # (Auto) 0.1, Baso # (Auto) 0.1 09/20/20 21:13: Sodium 134 L, Potassium 4.0, Chloride 99, Carbon Dioxide 26, Anion Gap 13.0, BUN 12 D, Creatinine 0.50 L, Estimated Creat Clear 229, Estimated GFR 142, Est GFR ( Amer) 172 D, Glucose 114 H, Calcium 9.0, Total Bilirubin 0.3, AST 26, ALT 18, Alkaline Phosphatase 72, Total Protein 6.3, Albumin 3.8, Globulin 2.5, Albumin/Globulin Ratio 1.5, Amylase 142 H, Lipase 381 H Result diagrams: 09/20/20 21:13 09/20/20 21:13 Orders (Tests/Meds): ED MEDICATIONS Discontinued Medications Generic Name Dose Route Start Last Admin Trade Name Karen PRN Reason Stop Dose Admin Sodium Chloride 1,000 mls @ 999 mls/hr 09/20/20 21:00 09/20/20 21:18 Sod Chlor 0.9% 1000ml Bag IV 09/20/20 22:00 999 mls/hr .Q1H1M INO Administration Ketorolac Tromethamine 30 mg 09/20/20 20:58 09/20/20 21:18 Ketorolac 30mg/Ml Vial IV 09/20/20 20:59 30 mg ONCE ONE Administration Ondansetron HCl 4 mg 09/20/20 20:58 09/20/20 21:18 Ondansetron 4mg/2ml Vial IV 09/20/20 20:59 4 mg ONCE ONE Administration - Reevaluation(s) Time: 21:35 Reevaluation #1: Discussed patient's results with her. Lipase is trending down and is now almost normal as is amylase. She is requesting Dilaudid. I have declined to give her Dilaudid. I will treat with Toradol and Zofran, fluids, and advised her to see her primary care provider tomorrow. General Adult HPI - General Chief complaint: PAIN Stated complaint: stomach pain,vomiting Time Seen by Provider: 09/20/20 21:00 Mode of Arrival: Ambulatory Usha
[2020-09-20 21:22] VITALS: BP 122/77; PULSE 114; O2SAT 94
[2020-09-20 21:27] LABS: Basophils # 0.1 K/mm3 (0-0.2); Basophils % 0.8 % (0.1-2.0); Eosinophils # 0.1 K/mm3 (0.0-0.4); Eosinophils % 0.8 % (0.1-12.0); Hematocrit 38.4 % (37.0-47.0); Lymphocytes # 2.5 K/mm3 (0.7-4.5); Lymphocytes % 26.2 % (10-50); Mean Corpuscular HGB Conc 33.7 g/dL (31.8-35.4); Mean Corpuscular Hemoglobin 29.7 pg (27.0-31.2); Mean Corpuscular Volume 87.9 fl (81-99); Mean Platelet Volume 8.4 fl (7.4-10.4); Monocytes # 0.5 K/mm3 (0.1-1.0); Monocytes % 5.3 % (1.7-9.3); Neutrophils # 6.4 K/mm3 (1.8-7.8); Platelet Count 218 K/mm3 (142-424); Red Blood Count 4.37 M/mm3 (4.20-5.40); Red Cell Distribution Width 14.4 % (11.5-17.5); White Blood Count 9.6 K/mm3 (4.8-10.8)
[2020-09-20 21:30] VITALS: BP 132/82; PULSE 120; O2SAT 94
[2020-09-20 21:35] LABS: Alanine Aminotransferase 18 U/L (12-78); Albumin Level 3.8 g/dl (3.5-5.0); Albumin/Globulin Ratio 1.5 (1.1-1.8); Alkaline Phosphatase 72 U/L (38-126); Amylase 142 U/L (30-110); Aspartate Amino Transferase 26 U/L (14-36); Bilirubin,Total 0.3 mg/dl (0.2-1.3); Blood Urea Nitrogen 12 mg/dl (7-17); Carbon Dioxide 26 mmol/L (22.0-30.0); Chloride 99 mmol/L (98-107); Creatinine Clearance Estimated 229 mL/min (50-200); Estimated Glomerular Filt Rate 142 ml/min (>60); GFR (African American) 172 ML/MIN (>60); Globulin 2.5 g/dL (1.3-3.2); Glucose 114 mg/dl (74-100); Lipase 381 U/L (23-300); Sodium 134 mmol/L (136-145); Total Protein,Serum 6.3 g/dl (6.3-8.2)
[2020-09-20 22:00] VITALS: BP 132/78; PULSE 89; O2SAT 94
[2020-09-20 23:33] VITALS: BP 128/88; PULSE 87; RESP 17; TEMP 36.7; O2SAT 98
--- NOTE | 2020-09-21 00:11 | PC.NURSE ---
[id number]- MD at bedside speaking with pt. pt requested Dilaudid for her pain. MD stated that he would not be giving her Dilaudid tonight and that she needs to follow up with her PCP tomorrow for a better plan and management
== END 2020-09-21 00:36 | disposition home or self-care (01) ==
PROVIDERS: Emergency Provider Emergency Medicine; PCP Family Medicine
DX: K86.1 Other chronic pancreatitis (principal); F41.9 Anxiety disorder, unspecified; E78.5 Hyperlipidemia, unspecified; F17.210 Nicotine dependence, cigarettes, uncomplicated; Z79.899 Other long term (current) drug therapy
CPT/HCPCS: 80053; 82150; 83690; 85025; 99282; J2405

== ENCOUNTER → 2020-09-27 14:23 | Outpatient (CLI) | payer BC, SELFPAY ==
--- NOTE | 2020-09-27 14:23 | MM_ITS ---
PROCEDURE: MM DIG MAMM BI DX W/CAD Digital Breast Tomosynthesis Included Right breast ultrasound complete CLINICAL INDICATION: palpable area rt breast Palpable right breast nodule COMPARISON: MG MM BREAST DENISA DIAGNOSTIC BILATERAL BH from 05/07/2018 US US BREAST LIMITED RT BH from 05/07/2018 US US BREAST RT COMPLETE from 09/27/2020 TECHNIQUE: Standard CC and MLO images and 3D Tomosynthesis was obtained. R2 CAD reviewed. FINDINGS: There is average fibroglandular tissue. Within the lower inner aspect of the right breast there is a 3 x 2 cm dense nodule with well-circumscribed margins. No obvious calcifications. The on ultrasound this is solids and is slightly hypoechoic with some posterior acoustical shadowing. The dimensions of the nodule are slightly greater on today's exam compared to the previous study today measuring 3.2 x 2 cm previously at 2.7 x 2.1 cm. If An asymmetric area of increased density is present in the superior aspect of the right breast which may be due to overlapping fibroglandular tissue. No sonographic abnormality evident at this region. The left breast has an unremarkable appearance. Right breast ultrasound: There is a 2.3 x 1.1 cm hypoechoic nodule well-circumscribed in the 5 o'clock region of the right breast. The nodule is wider than tall with no obvious calcifications. No other significant anomalies are evident. IMPRESSION: Solid nodule 5 o'clock region right breast. The nodule measures slightly larger on the mammogram but could be due to different positioning. The ultrasound size is similar. This may be related to a fibroadenoma. There is an area of asymmetry in the upper aspect of the right breast for which six-month follow-up is suggested. BI-RAD Category: 3 Probably Benign Finding Short Term Follow-Up FOLLOW-UP: 6M 6 Month Follow-up. If the patient's anxiety level is high about the palpable nodule then ultrasound-guided biopsy could be performed. (A letter has been sent to the patient regarding results of the study.) Dictated by: Edgardo Roque MD 10/09/2020 11:51 Edgardo Roque MD in [place] 10/09/2020 11:51
== END ==
PROVIDERS: PCP Family Medicine; Visit Provider Family Medicine
DX: N63.10 Unspecified lump in the right breast, unspecified quadrant (principal)
CPT/HCPCS: 76641; 77062; 77066; G0279

== ENCOUNTER 2020-09-27 16:09 | Emergency (ER) | payer BC, SELFPAY ==
[2020-09-27 16:23] VITALS: BP 156/106; PULSE 106; RESP 16; TEMP 37.1; O2SAT 98; BMI 34.8
[2020-09-27 16:31] VITALS: BP 148/100; PULSE 98; RESP 18; O2SAT 94
[2020-09-27 16:57] LABS: Basophils # 0.1 K/mm3 (0-0.2); Basophils % 1.1 % (0.1-2.0); Eosinophils # 0.1 K/mm3 (0.0-0.4); Eosinophils % 0.6 % (0.1-12.0); Hematocrit 41.9 % (37.0-47.0); Hemoglobin 14.3 g/dL (12.2-16.2); Lymphocytes # 2.7 K/mm3 (0.7-4.5); Lymphocytes % 25.8 % (10-50); Mean Corpuscular HGB Conc 34.1 g/dL (31.8-35.4); Mean Corpuscular Hemoglobin 29.8 pg (27.0-31.2); Mean Corpuscular Volume 87.4 fl (81-99); Mean Platelet Volume 8.1 fl (7.4-10.4); Monocytes # 0.4 K/mm3 (0.1-1.0); Neutrophils % 68.5 % (37.0-80.0); Platelet Count 312 K/mm3 (142-424); Red Blood Count 4.79 M/mm3 (4.20-5.40); Red Cell Distribution Width 14.2 % (11.5-17.5); White Blood Count 10.3 K/mm3 (4.8-10.8)
[2020-09-27 17:02] LABS: Chloride 103 mmol/L (98-107); Potassium 4.5 mmoL/L (3.5-5.1); Sodium 136 mmol/L (136-145)
[2020-09-27 17:05] LABS: Alanine Aminotransferase 57 U/L (12-78); Albumin/Globulin Ratio 1.5 (1.1-1.8); Alkaline Phosphatase 105 U/L (38-126); Anion Gap 16.5 mEq/L (5-15); Aspartate Amino Transferase 51 U/L (14-36); Bilirubin,Total 0.7 mg/dl (0.2-1.3); Blood Urea Nitrogen 12 mg/dl (7-17); Calcium 9.6 mg/dl (8.4-10.2); Carbon Dioxide 21 mmol/L (22.0-30.0); Creatinine Clearance Estimated 194 mL/min (50-200); Estimated Glomerular Filt Rate 115 ml/min (>60); GFR (African American) 139 ML/MIN (>60); Globulin 3.3 g/dL (1.3-3.2); Glucose 112 mg/dl (74-100); Lipase 61 U/L (23-300); Total Protein,Serum 8.3 g/dl (6.3-8.2)
[2020-09-27 17:08] LABS: Microscopic, Urine URINE MICROSCOPIC (MICROSCOPIC)
[2020-09-27 17:10] LABS: Appearance,Urine CLEAR (Clear); Blood, Urine 3+ (Negative); Color,Urine YELLOW (Yellow); Glucose,Urine (UA) Negative (Negative); Ketones,Urine Negative (Negative); Leukocyte Esterase,Urine Negative (Negative); Nitrate,Urine Negative (Negative); Protein,Urine Negative (Negative); Specific Gravity, Urine 1.025 (1.005-1.030); Urobilinogen,Urine 0.2 EU/dl (0.2)
[2020-09-27 17:16] LABS: Bilirubin,Urine 1+ (Negative)
[2020-09-27 17:23] LABS: Troponin I < 0.01 ng/ml (0.00-0.034)
[2020-09-27 17:40] LABS: Bacteria,Urine 4+ /lpf; Mucus,Urine 3+ /lpf
--- NOTE | 2020-09-27 17:57 | HMH.EDGENADL ---
ED Disposition Clinical Impression: Abdominal pain Qualifiers: Abdominal location: epigastric Qualified Code(s): R10.13 - Epigastric pain Disposition: Home, Self-Care Condition on Discharge: Good Additional Instructions: Follow-up Dr. Escobar. Maintain your appointment at gastroenterology later this month. Referrals: Elmo Escobar MD [Primary Care Provider] - 3 days Time of Disposition: 18:00 - Critical Care Critical Care Time: No Attestation: On 09/27/20, the high probability of a clinically significant, sudden or life threatening deterioration of the following system(s) required my full and direct attention, intervention and personal management. The time I documented below is in addition to time spent performing reported procedures but includes the following listed in this critical care notation. Medical Decision Making - Medical Records Medical records reviewed: Yes: I reviewed the patient's medical records. - Ramses Inquiry Pt receiving controlled substance: No Vital Signs: 09/27/20 16:23 Temperature 98.8 F Temperature Source Oral Pulse Rate [Right Radial] 106 H Respiratory Rate 16 Blood Pressure [Right Arm] 156/106 H Blood Pressure Mean [Right Arm] 122 Blood Pressure Source [Right Arm] Automatic Cuff Blood Pressure Position [Right Arm] Sitting 02 Sat by Pulse Oximetry 98 Oxygen Delivery Method Room Air - Lab Data Lab results reviewed: Yes: I reviewed the patient's lab results. Lab Results 09/27/20 16:46: WBC 10.3, RBC 4.79, Hgb 14.3, Hct 41.9, MCV 87.4, MCH 29.8, MCHC 34.1, RDW 14.2, Plt Count 312, MPV 8.1, Neut % (Auto) 68.5, Lymph % (Auto) 25.8, [place] % (Auto) 4.0, Eos % (Auto) 0.6, Baso % (Auto) 1.1, Neut # (Auto) 7.0, Lymph # (Auto) 2.7, [place] # (Auto) 0.4, Eos # (Auto) 0.1, Baso # (Auto) 0.1 09/27/20 16:46: Sodium 136, Potassium 4.5, Chloride 103, Carbon Dioxide 21 L, Anion Gap 16.5 H, BUN 12, Creatinine 0.60, Estimated Creat Clear 194, Estimated GFR 115, Est GFR ( Amer) 139, Glucose 112 H, Calcium 9.6, Total Bilirubin 0.7, AST 51 H, ALT 57, Alkaline Phosphatase 105, Troponin I < 0.01, Total Protein 8.3 H D, Albumin 5.0, Globulin 3.3 H, Albumin/Globulin Ratio 1.5, Lipase 61 09/27/20 17:05: Urine Color Yellow, Urine Appearance Clear, Urine pH 6.0, Ur Specific [place] 1.025, Urine Protein Negative, Urine Glucose (UA) Negative, Urine Ketones Negative, Urine Blood 3+, Urine Nitrate Negative, Urine Bilirubin 1+ A, Urine Urobilinogen 0.2, Ur Leukocyte Esterase Negative, Urine RBC 3-5, Urine WBC 5-10, Ur Squamous Epith Cells 10-20, Urine Bacteria 4+, Urine Mucus 3+ Result diagrams: 09/27/20 16:46 09/27/20 16:46 Orders (Tests/Meds): ED MEDICATIONS Discontinued Medications Generic Name Dose Route Start Last Admin Trade Name Freq PRN Reason Stop Dose Admin Lactated Ringer's 1,000 mls @ 999 mls/hr 09/27/20 16:30 09/27/20 16:58 Lactated Ringer's 1000 Ml Bag IV 09/27/20 17:30 999 mls/hr .Q1H1M INO Administration ORDERS Category Date Time Status Urine Culture Stat Micro 09/27/20 17:05 Received Medical Decision Narrative: 34yo F evaluated for epigastric pain. Patient is in no acute distress and is actually sleeping peacefully while I entered the room. Labs were completed upon her arrival. Patient's lipase is well within normal. Patient received a liter of IV fluids while waiting in the emergency department. She complains of continued pain. She reports she is out of her narcotics prescribed by her PCP already and requesting something additional at this time. I offered her Toradol which she declines. Patient is discharged in stable condition. General Adult HPI - General Chief complaint: Abdominal Pain Stated complaint: sent by Dr Escobar to check lipase,Abd pain Time Seen by Provider: 09/27/20 17:45 Mode of Arrival: Ambulatory Limitations: No Limitations Description of Symptoms (Recalled from ER Triage Doc. by RN): Pt reports upper abd pain, pt reports pain is
[2020-09-27 18:10] VITALS: BP 157/105; PULSE 90; RESP 18; TEMP 37.1; O2SAT 100
== END 2020-09-27 18:10 | disposition home or self-care (01) ==
PROVIDERS: Emergency Provider Family Medicine; PCP Family Medicine
DX: R10.13 Epigastric pain (principal); F41.9 Anxiety disorder, unspecified; E78.5 Hyperlipidemia, unspecified; Z79.899 Other long term (current) drug therapy
CPT/HCPCS: 80053; 81001; 83690; 84484; 85025; 87086; 96365; 99283

== ENCOUNTER 2020-10-02 19:05 | Emergency (ER) | payer BC, SELFPAY ==
[2020-10-02 19:06] VITALS: BP 157/99; PULSE 97; RESP 16; TEMP 36.7; O2SAT 99; BMI 33.3
[2020-10-02 19:30] VITALS: BP 130/93; PULSE 87; O2SAT 97
[2020-10-02 20:00] VITALS: BP 140/93; PULSE 75; O2SAT 99
[2020-10-02 20:15] LABS: Basophils # 0.1 K/mm3 (0-0.2); Basophils % 0.8 % (0.1-2.0); Eosinophils % 0.1 % (0.1-12.0); Hematocrit 36.4 % (37.0-47.0); Hemoglobin 12.1 g/dL (12.2-16.2); Lymphocytes # 2.3 K/mm3 (0.7-4.5); Lymphocytes % 27.7 % (10-50); Mean Corpuscular HGB Conc 33.2 g/dL (31.8-35.4); Mean Corpuscular Hemoglobin 29.3 pg (27.0-31.2); Mean Corpuscular Volume 88.4 fl (81-99); Mean Platelet Volume 7.9 fl (7.4-10.4); Monocytes # 0.3 K/mm3 (0.1-1.0); Monocytes % 4.1 % (1.7-9.3); Neutrophils # 5.6 K/mm3 (1.8-7.8); Neutrophils % 67.2 % (37.0-80.0); Platelet Count 245 K/mm3 (142-424); Red Blood Count 4.12 M/mm3 (4.20-5.40); Red Cell Distribution Width 14.2 % (11.5-17.5); White Blood Count 8.4 K/mm3 (4.8-10.8)
--- NOTE | 2020-10-02 20:18 | HMH.EDNVD ---
ED Disposition Clinical Impression: Abdominal pain Qualifiers: Abdominal location: left upper quadrant Qualified Code(s): R10.12 - Left upper quadrant pain Disposition: Home, Self-Care Condition on Discharge: Good Instructions: DI for Acute Abdominal Pain Additional Instructions: npo till am and call pcp for follow up Referrals: Elmo Escobar MD [Primary Care Provider] - - Critical Care Critical Care Time: No Attestation: On 10/02/20, the high probability of a clinically significant, sudden or life threatening deterioration of the following system(s) required my full and direct attention, intervention and personal management. The time I documented below is in addition to time spent performing reported procedures but includes the following listed in this critical care notation. Medical Decision Making - Medical Records Medical records reviewed: Yes: I reviewed the patient's medical records. - Ramses Inquiry Pt receiving controlled substance: No Vital Signs: 10/02/20 19:06 Temperature 98.1 F Temperature Source Oral Pulse Rate [Left Radial] 97 H Respiratory Rate 16 Blood Pressure [Right Arm] 157/99 H Blood Pressure Mean [Right Arm] 118 Blood Pressure Source [Right Arm] Automatic Cuff Blood Pressure Position [Right Arm] Supine 02 Sat by Pulse Oximetry 99 Oxygen Delivery Method Room Air - Lab Data Lab results reviewed: Yes: I reviewed the patient's lab results. Lab Results 10/02/20 19:54: WBC 8.4, RBC 4.12 L, Hgb 12.1 L, Hct 36.4 L, MCV 88.4, MCH 29.3, MCHC 33.2, RDW 14.2, Plt Count 245, MPV 7.9, Neut % (Auto) 67.2, Lymph % (Auto) 27.7, [place] % (Auto) 4.1, Eos % (Auto) 0.1, Baso % (Auto) 0.8, Neut # (Auto) 5.6, Lymph # (Auto) 2.3, [place] # (Auto) 0.3, Eos # (Auto) 0.0, Baso # (Auto) 0.1 10/02/20 19:54: Sodium 140, Potassium 3.5, Chloride 107, Carbon Dioxide 25, Anion Gap 11.5, BUN 9, Creatinine 0.50 L, Estimated Creat Clear 229, Estimated GFR 142, Est GFR ( Amer) 172, Glucose 101 H, Calcium 8.7, Total Bilirubin 0.4, AST 23, ALT 21, Alkaline Phosphatase 75, Total Protein 6.8, Albumin 4.0, Globulin 2.8, Albumin/Globulin Ratio 1.4, Lipase 118 Result diagrams: 10/02/20 19:54 10/02/20 19:54 Medical Decision Narrative: has stable exam and labs at this time - will try to obtain records from [facility] of admit Nausea/Vomiting/Diarrhea HPI - General Chief complaint: Abdominal Pain Stated complaint: abdominal pain Time Seen by Provider: 10/02/20 20:00 Mode of Arrival: Ambulatory Source of Information: Patient, Medical Record Limitations: No Limitations Description of Symptoms (Recalled from ER Triage Doc. by RN): Pt c/o recurrent LUQ abd pain for the past 2 days w/ N/V. Pt states she has an appointment with for her pancreatitis on 10/19. - History of Present Illness HPI Narrative: pt with ongoing intermittent abd pain with hx of elevated lipase in past - recent admit at [facility] for same - pt with no fever and has pending eval at MD complaint: nausea, vomiting, abdominal pain Onset (ago): day(s) Associated Abdominal Pain: Yes Location of pain: LUQ, epigastric Severity: moderate Associated symptoms: denies other symptoms - Related Data Home Medications Medication Instructions Recorded Confirmed methocarbamol 500 mg tablet 500 mg PO TIDP PRN tab 05/09/20 09/27/20 pregabalin 200 mg capsule 200 mg PO BID cap 05/09/20 09/27/20 venlafaxine 150 mg 150 mg PO DAILY cap 05/09/20 09/27/20 capsule,extended release 24 hr Lurasidone HCl [Latuda] 40 mg PO HS 06/23/20 09/27/20 cloNIDine HCL [cloNIDine 0.1mg 0.1 mg PO BIDP PRN 06/23/20 09/27/20 Tablet] Lipase/Protease/Amylase [Creon] 1 cap PO TID 08/30/20 09/27/20 Previous Rx's Medication Instructions Recorded chlordiazepoxide-clidinium 5 1 cap PO TID PRN #30 cap 08/17/20 mg-2.5 mg capsule Ondansetron [Zofran 4mg ODT] 4 mg PO TIDP PRN #12 tab 07/27/21 clotrimazole 1 % topical cream 1 applic TOPICAL BID 28 Days #45 g 09/27/20
[2020-10-02 20:23] LABS: Alanine Aminotransferase 21 U/L (12-78); Albumin/Globulin Ratio 1.4 (1.1-1.8); Alkaline Phosphatase 75 U/L (38-126); Anion Gap 11.5 mEq/L (5-15); Aspartate Amino Transferase 23 U/L (14-36); Bilirubin,Total 0.4 mg/dl (0.2-1.3); Blood Urea Nitrogen 9 mg/dl (7-17); Calcium 8.7 mg/dl (8.4-10.2); Carbon Dioxide 25 mmol/L (22.0-30.0); Chloride 107 mmol/L (98-107); Creatinine Clearance Estimated 229 mL/min (50-200); Estimated Glomerular Filt Rate 142 ml/min (>60); GFR (African American) 172 ML/MIN (>60); Globulin 2.8 g/dL (1.3-3.2); Glucose 101 mg/dl (74-100); Lipase 118 U/L (23-300); Potassium 3.5 mmoL/L (3.5-5.1); Sodium 140 mmol/L (136-145); Total Protein,Serum 6.8 g/dl (6.3-8.2)
[2020-10-02 20:30] VITALS: BP 133/90; PULSE 73; O2SAT 97
[2020-10-02 21:08] VITALS: BP 151/99; PULSE 77; RESP 16; TEMP 36.8; O2SAT 98
== END 2020-10-02 21:09 | disposition home or self-care (01) ==
PROVIDERS: Emergency Provider Emergency Medicine; PCP Family Medicine
DX: R10.12 Left upper quadrant pain (principal); K86.1 Other chronic pancreatitis; E78.5 Hyperlipidemia, unspecified; F41.9 Anxiety disorder, unspecified; F17.210 Nicotine dependence, cigarettes, uncomplicated; Z79.899 Other long term (current) drug therapy
CPT/HCPCS: 80053; 83690; 85025; 96372; 99282

== ENCOUNTER 2020-10-04 08:02 | Emergency (ER) | payer BC, SELFPAY ==
[2020-10-04 08:03] VITALS: BP 120/84; PULSE 84; RESP 16; TEMP 36.7; O2SAT 98; BMI 33.3
--- NOTE | 2020-10-04 09:02 | HMH.EDABDPAI ---
ED Disposition Clinical Impression: Nausea vomiting and diarrhea Disposition: Home, Self-Care Condition on Discharge: Good Instructions: DI for Pancreatitis Referrals: Elmo Bah MD [Primary Care Provider] - - Critical Care Critical Care Time: No Attestation: On 10/04/20, the high probability of a clinically significant, sudden or life threatening deterioration of the following system(s) required my full and direct attention, intervention and personal management. The time I documented below is in addition to time spent performing reported procedures but includes the following listed in this critical care notation. Medical Decision Making - Medical Records Medical records reviewed: Yes: I reviewed the patient's medical records. - Ramses Inquiry Pt receiving controlled substance: No Vital Signs: 10/04/20 08:03 Temperature 98.1 F Temperature Source Oral Pulse Rate [Radial] 84 Respiratory Rate 16 Blood Pressure [Right Arm] 120/84 Blood Pressure Mean [Right Arm] 96 Blood Pressure Position [Right Arm] Sitting 02 Sat by Pulse Oximetry 98 Oxygen Delivery Method Room Air Medical Decision Narrative: Patient sleeping when I initially entered the room and admits her symptoms have been getting better over the last hour, no vomiting or diarrhea while here. Because of this, no need for emergent pain control at this time and she is appropriate for follow-up with her primary care provider within the next hour. She already has an appointment. She has good bowel sounds in all 4 quadrants, low suspicion for obstructive process. Nontender abdomen on exam, low suspicion for perforation. Discharged to PCP appointment. Abdominal Pain HPI - General Chief Complaint: Abdominal Pain Stated Complaint: vomiting Time Seen by Provider: 10/04/20 09:02 Mode of Arrival: Ambulatory Limitations: No Limitations Description of Symptoms (Recalled from ER Triage Doc. by RN): TO ED PER [facility] WITH C/O ABD PAIN, NAUSEA, VOMITING. PT WITH HX OF PANCREATITIS WITH MULTIPLE VISITS TO ED. STATES SHE HAD AN APPT WITH DR BAH AT 9:30 TODAY BUT SHE HAD MULTIPLE EPISODES OF VOMITING SO CAME TO ED. - History of Present Illness HPI narrative: This is a 34-year-old female with a past medical history significant for pancreatitis who presents to the emergency department for vomiting and watery diarrhea that started last night. Symptoms have resolved over the last hour and she is sleeping when I come into the room. She did not take any medicine in particular that made her symptoms resolve, but they are getting better. She has known pancreatitis, has follow-up with in a little less than 2 weeks. She is also following with her primary care doctor, Dr. Bah for this as well and has an appointment with him at 9:15 AM this morning. She denies any recent fevers. She did not eat or drink anything in particular that started her symptoms last night. This is her third visit here this month so far and she has had a recent admission at [facility] for these problems as well. - Related Data Home Medications Medication Instructions Recorded Confirmed methocarbamol 500 mg tablet 500 mg PO TIDP PRN tab 05/09/20 09/27/20 pregabalin 200 mg capsule 200 mg PO BID cap 05/09/20 09/27/20 venlafaxine 150 mg 150 mg PO DAILY cap 05/09/20 09/27/20 capsule,extended release 24 hr Lurasidone HCl [Latuda] 40 mg PO HS 06/23/20 09/27/20 cloNIDine HCL [cloNIDine 0.1mg 0.1 mg PO BIDP PRN 06/23/20 09/27/20 Tablet] Lipase/Protease/Amylase [Creon] 1 cap PO TID 08/30/20 09/27/20 Previous Rx's Medication Instructions Recorded chlordiazepoxide-clidinium 5 1 cap PO TID PRN #30 cap 08/17/20 mg-2.5 mg capsule Ondansetron [Zofran 4mg ODT] 4 mg PO TIDP PRN #12 tab 09/18/20 clotrimazole 1 % topical cream 1 applic TOPICAL BID 28 Days #45 g 09/27/20 Allergies Allergy/AdvReac Type Severity Reaction Status Date / Time morphine Allergy Verified
[2020-10-04 09:06] VITALS: BP 123/74; PULSE 74; RESP 16; TEMP 36.6; O2SAT 98
== END 2020-10-04 09:08 | disposition home or self-care (01) ==
PROVIDERS: Emergency Provider Emergency Medicine; PCP Family Medicine
DX: R11.2 Nausea with vomiting, unspecified (principal); K86.1 Other chronic pancreatitis; F41.9 Anxiety disorder, unspecified; E78.5 Hyperlipidemia, unspecified; M79.7 Fibromyalgia; F17.210 Nicotine dependence, cigarettes, uncomplicated
CPT/HCPCS: 99281

== ENCOUNTER 2020-10-11 22:38 | Emergency (ER) | payer BC, SELFPAY ==
[2020-10-11 23:05] VITALS: BP 158/98; PULSE 111; RESP 18; TEMP 37.1; O2SAT 95; BMI 34.4
[2020-10-11 23:18] LABS: Microscopic, Urine URINE MICROSCOPIC (MICROSCOPIC)
[2020-10-11 23:20] LABS: Appearance,Urine SL CLOUDY (Clear); Bilirubin,Urine Negative (Negative); Blood, Urine Negative (Negative); Color,Urine YELLOW (Yellow); Glucose,Urine (UA) Negative (Negative); Ketones,Urine Negative (Negative); Leukocyte Esterase,Urine Negative (Negative); Nitrate,Urine Negative (Negative); Protein,Urine Negative (Negative); Specific Gravity, Urine 1.025 (1.005-1.030); Urobilinogen,Urine 0.2 EU/dl (0.2)
[2020-10-11 23:27] LABS: Basophils # 0.1 K/mm3 (0-0.2); Basophils % 1.2 % (0.1-2.0); Eosinophils % 0.1 % (0.1-12.0); Hemoglobin 12.3 g/dL (12.2-16.2); Lymphocytes # 3.6 K/mm3 (0.7-4.5); Lymphocytes % 41.2 % (10-50); Mean Corpuscular Hemoglobin 29.5 pg (27.0-31.2); Mean Corpuscular Volume 86.7 fl (81-99); Mean Platelet Volume 8.1 fl (7.4-10.4); Monocytes # 0.4 K/mm3 (0.1-1.0); Monocytes % 4.3 % (1.7-9.3); Neutrophils # 4.6 K/mm3 (1.8-7.8); Neutrophils % 53.2 % (37.0-80.0); Platelet Count 230 K/mm3 (142-424); Red Blood Count 4.15 M/mm3 (4.20-5.40); Red Cell Distribution Width 14.4 % (11.5-17.5); White Blood Count 8.7 K/mm3 (4.8-10.8)
[2020-10-11 23:28] LABS: Bacteria,Urine 2+ /lpf; Mucus,Urine 2+ /lpf; WBC,Urine Occasional #/hpf (0-3)
--- NOTE | 2020-10-11 23:28 | HMH.EDNVD ---
ED Disposition Clinical Impression: Abdominal pain Qualifiers: Abdominal location: left upper quadrant Qualified Code(s): R10.12 - Left upper quadrant pain Disposition: Home, Self-Care Condition on Discharge: Good Instructions: DI for Acute Abdominal Pain Additional Instructions: keep appt with [facility] in am Referrals: Elmo Escobar MD [Primary Care Provider] - - Critical Care Critical Care Time: No Attestation: On 10/11/20, the high probability of a clinically significant, sudden or life threatening deterioration of the following system(s) required my full and direct attention, intervention and personal management. The time I documented below is in addition to time spent performing reported procedures but includes the following listed in this critical care notation. Medical Decision Making - Medical Records Medical records reviewed: Yes: I reviewed the patient's medical records. - Ramses Inquiry Pt receiving controlled substance: No Vital Signs: 10/11/20 23:05 Temperature 98.8 F Temperature Source Oral Pulse Rate [Right] 111 H Respiratory Rate 18 Blood Pressure [Right Arm] 158/98 H Blood Pressure Mean [Right Arm] 118 Blood Pressure Source [Right Arm] Automatic Cuff Blood Pressure Position [Right Arm] Supine 02 Sat by Pulse Oximetry 95 Oxygen Delivery Method Room Air - Lab Data Lab results reviewed: Yes: I reviewed the patient's lab results. Lab Results 10/11/20 22:43: Urine Color Yellow, Urine Appearance Sl cloudy, Urine pH 6.0, Ur Specific [place] 1.025, Urine Protein Negative, Urine Glucose (UA) Negative, Urine Ketones Negative, Urine Blood Negative, Urine Nitrate Negative, Urine Bilirubin Negative, Urine Urobilinogen 0.2, Ur Leukocyte Esterase Negative, Urine WBC Occasional, Ur Squamous Epith Cells 5-10, Urine Bacteria 2+, Urine Mucus 2+ 10/11/20 23:00: WBC 8.7, RBC 4.15 L, Hgb 12.3, Hct 36.0 L, MCV 86.7, MCH 29.5, MCHC 34.0, RDW 14.4, Plt Count 230, MPV 8.1, Neut % (Auto) 53.2, Lymph % (Auto) 41.2, [place] % (Auto) 4.3, Eos % (Auto) 0.1, Baso % (Auto) 1.2, Neut # (Auto) 4.6, Lymph # (Auto) 3.6, [place] # (Auto) 0.4, Eos # (Auto) 0.0, Baso # (Auto) 0.1, ESR 18 10/11/20 23:00: Sodium 140, Potassium 3.5, Chloride 105, Carbon Dioxide 26, Anion Gap 12.5, BUN 7, Creatinine 0.50 L, Estimated Creat Clear 237, Estimated GFR 142, Est GFR ( Amer) 172, Glucose 107 H, Calcium 8.5, Total Bilirubin 0.2, AST 25, ALT 13, Alkaline Phosphatase 68, C-Reactive Protein 2.1, Total Protein 6.4, Albumin 3.9, Globulin 2.5, Albumin/Globulin Ratio 1.6, Amylase 85, Lipase 188 Result diagrams: 10/11/20 23:00 10/11/20 23:00 Orders (Tests/Meds): ED MEDICATIONS Discontinued Medications Generic Name Dose Route Start Last Admin Trade Name Freq PRN Reason Stop Dose Admin Hydromorphone HCl 1 mg 10/11/20 23:45 10/11/20 23:51 Hydromorphone 2mg/Ml Syringe IM 10/11/20 23:46 1 mg ONCE ONE Administration Promethazine HCl 25 mg 10/11/20 23:45 Promethazine Hcl 25mg/Ml 1ml Vial IV 10/11/20 23:46 ONCE ONE ORDERS Category Date Time Status Amylase Stat Lab 10/11/20 23:00 Results C-Reactive Protein Stat Lab 10/11/20 23:00 Results Comprehensive Metabolic Panel Stat Lab 10/11/20 23:00 Results Lipase Stat Lab 10/11/20 23:00 Results Procalcitonin Stat Lab 10/11/20 23:00 Results Urine Culture Stat Micro 10/11/20 22:43 Received Medical Decision Narrative: recurrent abd pain with hx of pancreatitis and has appt in am with Nausea/Vomiting/Diarrhea HPI - General Chief complaint: Abdominal Pain Stated complaint: vomiding, pain under ribs left Time Seen by Provider: 10/11/20 23:28 Mode of Arrival: Ambulatory Source of Information: Patient, Medical Record Limitations: No Limitations Description of Symptoms (Recalled from ER Triage Doc. by RN): Pt c/o left ABD pain today. Pt was seen at [place] ER earlier today, she received a dose of Dilaudid and Phenergan and she said she went to sleep and w
[2020-10-11 23:40] LABS: Alanine Aminotransferase 13 U/L (12-78); Albumin Level 3.9 g/dl (3.5-5.0); Albumin/Globulin Ratio 1.6 (1.1-1.8); Alkaline Phosphatase 68 U/L (38-126); Amylase 85 U/L (30-110); Anion Gap 12.5 mEq/L (5-15); Aspartate Amino Transferase 25 U/L (14-36); Bilirubin,Total 0.2 mg/dl (0.2-1.3); Blood Urea Nitrogen 7 mg/dl (7-17); Calcium 8.5 mg/dl (8.4-10.2); Carbon Dioxide 26 mmol/L (22.0-30.0); Chloride 105 mmol/L (98-107); Creatinine Clearance Estimated 237 mL/min (50-200); Estimated Glomerular Filt Rate 142 ml/min (>60); GFR (African American) 172 ML/MIN (>60); Globulin 2.5 g/dL (1.3-3.2); Glucose 107 mg/dl (74-100); Lipase 188 U/L (23-300); Potassium 3.5 mmoL/L (3.5-5.1); Sodium 140 mmol/L (136-145); Total Protein,Serum 6.4 g/dl (6.3-8.2)
[2020-10-11 23:45] LABS: C-Reactive Protein 2.1 mg/L (0-4)
[2020-10-11 23:49] LABS: Erythrocyte Sedimentation Rate 18 mm/hr (0-20)
[2020-10-11 23:59] LABS: Procalcitonin 0.034 ng/mL (0.0-2.0)
[2020-10-12 00:14] VITALS: BP 144/74; PULSE 92; RESP 16; TEMP 37.1; O2SAT 97
== END 2020-10-12 00:16 | disposition home or self-care (01) ==
PROVIDERS: Emergency Provider Emergency Medicine; PCP Family Medicine
DX: R10.12 Left upper quadrant pain (principal); R11.10 Vomiting, unspecified; E78.5 Hyperlipidemia, unspecified; F41.9 Anxiety disorder, unspecified; F17.210 Nicotine dependence, cigarettes, uncomplicated
CPT/HCPCS: 80053; 81001; 82150; 83690; 84145; 85025; 85651; 86140; 87086; 96372; 99282

== ENCOUNTER 2020-10-16 12:28 | Emergency (ER) | payer BC, SELFPAY ==
[2020-10-16 12:29] VITALS: BP 110/71; PULSE 107; RESP 16; TEMP 36.7; O2SAT 96; BMI 29.7
--- NOTE | 2020-10-16 12:45 | HMH.EDGENADL ---
ED Disposition Clinical Impression: Abdominal pain Qualifiers: Abdominal location: epigastric Qualified Code(s): R10.13 - Epigastric pain Chronic pancreatitis Qualifiers: Pancreatitis type: unspecified pancreatitis type Qualified Code(s): K86.1 - Other chronic pancreatitis Disposition: Home, Self-Care Condition on Discharge: Fair Instructions: DI for Acute Abdominal Pain Additional Instructions: You have been evaluated for abdominal pain, likely due to chronic pancreatitis. You may be seen in Dr. Escobar and Dr. Mckinley's office as soon as tomorrow. Please call for an appointment. Follow a clear liquid diet. Call [facility] for soonest appointment. Return to the emergency department for any new or worsening symptoms Referrals: Elmo Escobar MD [Primary Care Provider] - Time of Disposition: 13:59 - Critical Care Critical Care Time: No Attestation: On 10/16/20, the high probability of a clinically significant, sudden or life threatening deterioration of the following system(s) required my full and direct attention, intervention and personal management. The time I documented below is in addition to time spent performing reported procedures but includes the following listed in this critical care notation. Medical Decision Making - Medical Records Medical records reviewed: Yes: I reviewed the patient's medical records. - Ramses Inquiry Pt receiving controlled substance: No Vital Signs: 10/16/20 12:29 Temperature 98.1 F Temperature Source Oral Pulse Rate [Left Radial] 107 H Respiratory Rate 16 Blood Pressure [Left Arm] 110/71 Blood Pressure Mean [Left Arm] 84 Blood Pressure Source [Left Arm] Automatic Cuff Blood Pressure Position [Left Arm] Sitting 02 Sat by Pulse Oximetry 96 Oxygen Delivery Method Room Air - Lab Data Lab Results 10/16/20 13:00: WBC 9.9, RBC 5.01, Hgb 14.7, Hct 44.6, MCV 89.0, MCH 29.4, MCHC 33.0, RDW 13.9, Plt Count 309, MPV 8.4, Neut % (Auto) 66.6, Lymph % (Auto) 27.1, [place] % (Auto) 4.6, Eos % (Auto) 0.4, Baso % (Auto) 1.3, Neut # (Auto) 6.6, Lymph # (Auto) 2.7, [place] # (Auto) 0.5, Eos # (Auto) 0.0, Baso # (Auto) 0.1 10/16/20 13:00: Sodium 138, Potassium 3.8, Chloride 104, Carbon Dioxide 17 L, Anion Gap 20.8 H, BUN 10, Creatinine 0.60, Estimated Creat Clear 198, Estimated GFR 115, Est GFR ( Amer) 139, Glucose 90, Calcium 9.6, Total Bilirubin 0.6, AST 36, ALT 17, Alkaline Phosphatase 101, Total Protein 7.9, Albumin 4.7, Globulin 3.2, Albumin/Globulin Ratio 1.5, Lipase 226 10/16/20 13:00: Serum HCG, Qual Negative Result diagrams: 10/16/20 13:00 10/16/20 13:00 Orders (Tests/Meds): ED MEDICATIONS Discontinued Medications Generic Name Dose Route Start Last Admin Trade Name Freq PRN Reason Stop Dose Admin Hydromorphone HCl 0.5 mg 10/16/20 12:34 10/16/20 13:06 Hydromorphone 2mg/Ml Syringe IV 10/16/20 12:35 0.5 mg ONCE ONE Administration Hydromorphone HCl 0.5 mg 10/16/20 13:54 Hydromorphone 2mg/Ml Syringe IV 10/16/20 13:55 ONCE ONE Ondansetron HCl 4 mg 10/16/20 12:34 10/16/20 13:05 Ondansetron 4mg/2ml Vial IV 10/16/20 12:35 4 mg ONCE ONE Administration ORDERS Category Date Time Status UA [Urinalysis and Microscopic] Stat Lab 10/16/20 12:33 Ordered Medical Decision Narrative: In summary this is a 34-year-old female with history of chronic pancreatitis presenting to the emergency department with epigastric abdominal pain. Patient clinically stable on arrival. Vital signs within normal limits. Concern for pancreatitis exacerbation, gastroenteritis, colitis. Will obtain CBC, CMP, lipase. Patient has had multiple CT scans in the last 3 months. She had 3 CT scans in June and one in July. Plan to start with laboratory work and see how her pain improves. Given Zofran and 0.5 mg Dilaudid, she has allergy to morphine and tramadol Initial laboratory results are reassuring. No leukocytosis. Lipase 226. This is eleva
[2020-10-16 13:15] LABS: Basophils # 0.1 K/mm3 (0-0.2); Basophils % 1.3 % (0.1-2.0); Eosinophils % 0.4 % (0.1-12.0); Hematocrit 44.6 % (37.0-47.0); Hemoglobin 14.7 g/dL (12.2-16.2); Lymphocytes # 2.7 K/mm3 (0.7-4.5); Lymphocytes % 27.1 % (10-50); Mean Corpuscular Hemoglobin 29.4 pg (27.0-31.2); Mean Platelet Volume 8.4 fl (7.4-10.4); Monocytes # 0.5 K/mm3 (0.1-1.0); Monocytes % 4.6 % (1.7-9.3); Neutrophils # 6.6 K/mm3 (1.8-7.8); Neutrophils % 66.6 % (37.0-80.0); Platelet Count 309 K/mm3 (142-424); Red Blood Count 5.01 M/mm3 (4.20-5.40); Red Cell Distribution Width 13.9 % (11.5-17.5); White Blood Count 9.9 K/mm3 (4.8-10.8)
[2020-10-16 13:19] LABS: Chloride 104 mmol/L (98-107); Sodium 138 mmol/L (136-145)
[2020-10-16 13:20] LABS: Potassium 3.8 mmoL/L (3.5-5.1)
[2020-10-16 13:22] LABS: Alanine Aminotransferase 17 U/L (12-78); Alkaline Phosphatase 101 U/L (38-126); Anion Gap 20.8 mEq/L (5-15); Aspartate Amino Transferase 36 U/L (14-36); Bilirubin,Total 0.6 mg/dl (0.2-1.3); Blood Urea Nitrogen 10 mg/dl (7-17); Carbon Dioxide 17 mmol/L (22.0-30.0); Creatinine Clearance Estimated 198 mL/min (50-200); Estimated Glomerular Filt Rate 115 ml/min (>60); GFR (African American) 139 ML/MIN (>60); Lipase 226 U/L (23-300)
[2020-10-16 13:23] LABS: Albumin Level 4.7 g/dl (3.5-5.0); Albumin/Globulin Ratio 1.5 (1.1-1.8); Calcium 9.6 mg/dl (8.4-10.2); Globulin 3.2 g/dL (1.3-3.2); Glucose 90 mg/dl (74-100); Total Protein,Serum 7.9 g/dl (6.3-8.2)
[2020-10-16 13:27] LABS: HCG Qualitative, Serum Negative (Negative)
--- NOTE | 2020-10-16 13:51 | PC.NURSE ---
notified ER all of pt tests are resulted
[2020-10-16 14:00] VITALS: BP 114/82; PULSE 91; RESP 16; O2SAT 94
[2020-10-16 14:17] VITALS: BP 114/82; PULSE 91; RESP 16; TEMP 36.7; O2SAT 94
== END 2020-10-16 14:17 | disposition home or self-care (01) ==
PROVIDERS: Emergency Provider Emergency Medicine; PCP Family Medicine
DX: K86.1 Other chronic pancreatitis (principal); F41.9 Anxiety disorder, unspecified; E78.5 Hyperlipidemia, unspecified; F17.210 Nicotine dependence, cigarettes, uncomplicated; Z79.899 Other long term (current) drug therapy
CPT/HCPCS: 80053; 83690; 84703; 85025; 96374; 96375; 96376; 99282; J2405

== ENCOUNTER 2020-10-19 20:07 | Emergency (ER) | payer BC, SELFPAY ==
[2020-10-19 20:23] VITALS: BP 140/90; PULSE 111; RESP 16; TEMP 36.6; O2SAT 95; BMI 33.3
[2020-10-19 20:53] LABS: Lipase 150 U/L (23-300)
--- NOTE | 2020-10-19 21:02 | HMH.EDNVD ---
ED Disposition Clinical Impression: Left upper quadrant pain Disposition: Home, Self-Care Condition on Discharge: Good Instructions: DI for Acute Abdominal Pain Additional Instructions: call pcp for follow up Referrals: Elmo Escobar MD [Primary Care Provider] - - Critical Care Critical Care Time: No Attestation: On 10/19/20, the high probability of a clinically significant, sudden or life threatening deterioration of the following system(s) required my full and direct attention, intervention and personal management. The time I documented below is in addition to time spent performing reported procedures but includes the following listed in this critical care notation. Medical Decision Making - Medical Records Medical records reviewed: Yes: I reviewed the patient's medical records. - Ramses Inquiry Pt receiving controlled substance: No Vital Signs: 10/19/20 20:23 Temperature 97.9 F Temperature Source Oral Pulse Rate [Right Brachial] 111 H Respiratory Rate 16 Blood Pressure [Right Arm] 140/90 Blood Pressure Mean [Right Arm] 106 Blood Pressure Source [Right Arm] Automatic Cuff Blood Pressure Position [Right Arm] Sitting 02 Sat by Pulse Oximetry 95 Oxygen Delivery Method Room Air - Lab Data Lab results reviewed: Yes: I reviewed the patient's lab results. Lab Results 10/19/20 20:30: Lipase 150 Medical Decision Narrative: has ongoing episodes of abd pain - needs to see pcp and gi consult Nausea/Vomiting/Diarrhea HPI - General Chief complaint: Abdominal Pain Stated complaint: pain under rib cage Time Seen by Provider: 10/19/20 21:02 Mode of Arrival: Family Vehicle Source of Information: Patient, Medical Record Limitations: No Limitations Description of Symptoms (Recalled from ER Triage Doc. by RN): pt presents with complains of left side upper quadrant pain that radiates down into her hip. she goes on to say that it feels different and sharp not aching. reports she went to see her gi appt yesterday but got sent to the ER at due to elevated BP for evaluation. pt states she is having difficulty keeping fluids down, but is afebrile. - History of Present Illness HPI Narrative: pt with hx of recurrent pancreatitis - pt with ongoing pain with nausea and vomiting MD complaint: nausea, vomiting, abdominal pain Onset (ago): day(s) Associated Abdominal Pain: Yes Location of pain: LUQ Severity: moderate Associated symptoms: denies other symptoms - Related Data Home Medications Medication Instructions Recorded Confirmed methocarbamol 500 mg tablet 500 mg PO TIDP PRN tab 05/09/20 10/16/20 pregabalin 200 mg capsule 200 mg PO BID cap 05/09/20 10/16/20 venlafaxine 150 mg 150 mg PO DAILY cap 05/09/20 10/16/20 capsule,extended release 24 hr Lurasidone HCl [Latuda] 40 mg PO HS 06/23/20 10/16/20 cloNIDine HCL [cloNIDine 0.1mg 0.1 mg PO BIDP PRN 06/23/20 10/04/20 Tablet] Lipase/Protease/Amylase [Creon] 1 cap PO TID 08/30/20 10/04/20 Previous Rx's Medication Instructions Recorded chlordiazepoxide-clidinium 5 1 cap PO TID PRN #30 cap 08/17/20 mg-2.5 mg capsule Ondansetron [Zofran 4mg ODT] 4 mg PO TIDP PRN #12 tab 09/18/20 hydrocodone 7.5 mg-acetaminophen 1 tab PO DAILY PRN #7 tab 10/04/20 325 mg tablet prochlorperazine maleate 10 mg 10 mg PO TID PRN #20 tab 10/04/20 tablet Allergies Allergy/AdvReac Type Severity Reaction Status Date / Time morphine Allergy Verified 10/04/20 09:31 tramadol Allergy Verified 10/04/20 09:31 [facility] History - Hepatitis A Screen Drug use history?: No High risk sexual behaviors?: No History of sexually transmitted infection?: No Currently employed?: No Childcare worker?: No Do you have indoor plumbing?: Yes Do you have electricity?: Yes Attestation statement:: This patient has been screened for Hepatitis A risk factors. I have reviewed the patient's past medical history: Yes Medical History: Reports:: Anxiety, Hyperlipi
[2020-10-19 21:23] VITALS: BP 169/70; PULSE 76; RESP 18; TEMP 36.8; O2SAT 98
== END 2020-10-19 21:27 | disposition home or self-care (01) ==
PROVIDERS: Emergency Provider Emergency Medicine; PCP Family Medicine
DX: R10.12 Left upper quadrant pain (principal); R03.0 Elevated blood-pressure reading, without diagnosis of hypertension; E78.5 Hyperlipidemia, unspecified; F41.9 Anxiety disorder, unspecified; F12.10 Cannabis abuse, uncomplicated; F17.210 Nicotine dependence, cigarettes, uncomplicated; Z88.5 Allergy status to narcotic agent; Z79.899 Other long term (current) drug therapy
CPT/HCPCS: 83690; 96375; 99282

== ENCOUNTER 2020-11-25 19:49 | Emergency (ER) | payer BC, SELFPAY ==
[2020-11-25 19:50] VITALS: BP 142/83; PULSE 124; RESP 16; TEMP 36.9; O2SAT 95; BMI 34.9
[2020-11-25 20:09] LABS: Microscopic, Urine URINE MICROSCOPIC (MICROSCOPIC)
[2020-11-25 20:13] LABS: Appearance,Urine CLEAR (Clear); Bilirubin,Urine Negative (Negative); Blood, Urine Negative (Negative); Color,Urine YELLOW (Yellow); Glucose,Urine (UA) Negative (Negative); Ketones,Urine Negative (Negative); Leukocyte Esterase,Urine Negative (Negative); Nitrate,Urine Negative (Negative); Protein,Urine Negative (Negative); Specific Gravity, Urine 1.025 (1.005-1.030); Urobilinogen,Urine 0.2 EU/dl (0.2)
[2020-11-25 20:23] LABS: Benzodiazepines Screen,Urine Negative ng/ml (<200)
[2020-11-25 20:24] LABS: Amphetamine/Metha Screen,Urine Negative ng/ml (<1000); Bacteria,Urine 1+ /lpf
[2020-11-25 20:24] LABS: Basophils # 0.1 K/mm3 (0-0.2); Basophils % 1.3 % (0.1-2.0); Eosinophils % 0.4 % (0.1-12.0); Hematocrit 36.4 % (37.0-47.0); Hemoglobin 11.9 g/dL (12.2-16.2); Lymphocytes # 2.3 K/mm3 (0.7-4.5); Lymphocytes % 37.9 % (10-50); Mean Corpuscular HGB Conc 32.6 g/dL (31.8-35.4); Mean Corpuscular Hemoglobin 29.5 pg (27.0-31.2); Mean Corpuscular Volume 90.4 fl (81-99); Mean Platelet Volume 8.6 fl (7.4-10.4); Monocytes # 0.3 K/mm3 (0.1-1.0); Monocytes % 4.7 % (1.7-9.3); Neutrophils # 3.3 K/mm3 (1.8-7.8); Neutrophils % 55.7 % (37.0-80.0); Platelet Count 208 K/mm3 (142-424); Red Blood Count 4.03 M/mm3 (4.20-5.40)
[2020-11-25 20:25] LABS: Cannabinoid Screen,Urine Positive ng/ml (<50)
[2020-11-25 20:26] LABS: Methadone Screen,Urine Negative ng/ml (<300)
[2020-11-25 20:26] LABS: Chloride 105 mmol/L (98-107); Sodium 140 mmol/L (136-145)
[2020-11-25 20:27] LABS: Potassium 3.4 mmoL/L (3.5-5.1)
[2020-11-25 20:27] LABS: Opiate Screen,Urine Negative ng/ml (<300)
[2020-11-25 20:28] LABS: Phencyclidine Screen,Urine Negative ng/ml (<25)
[2020-11-25 20:29] LABS: Alanine Aminotransferase 53 U/L (12-78); Alkaline Phosphatase 101 U/L (38-126); Amylase 71 U/L (30-110); Anion Gap 13.4 mEq/L (5-15); Aspartate Amino Transferase 29 U/L (14-36); Bilirubin,Total 0.2 mg/dl (0.2-1.3); Blood Urea Nitrogen 8 mg/dl (7-17); Carbon Dioxide 25 mmol/L (22.0-30.0); Creatinine Clearance Estimated 241 mL/min (50-200); Estimated Glomerular Filt Rate 142 ml/min (>60); GFR (African American) 172 ML/MIN (>60); Glucose 154 mg/dl (74-100)
[2020-11-25 20:30] LABS: Albumin Level 3.9 g/dl (3.5-5.0); Albumin/Globulin Ratio 1.3 (1.1-1.8); Calcium 9.3 mg/dl (8.4-10.2); Globulin 2.9 g/dL (1.3-3.2); Lipase 176 U/L (23-300); Total Protein,Serum 6.8 g/dl (6.3-8.2)
[2020-11-25 20:32] LABS: Barbiturates Screen,Urine Negative ng/ml (<200)
[2020-11-25 20:35] LABS: Cocaine Screen,Urine Negative ng/ml (<300)
--- NOTE | 2020-11-25 20:44 | HMH.EDNVD ---
ED Disposition Clinical Impression: Abdominal pain Qualifiers: Abdominal location: left upper quadrant Qualified Code(s): R10.12 - Left upper quadrant pain Disposition: Home, Self-Care Condition on Discharge: Good Instructions: DI for Acute Abdominal Pain Additional Instructions: keep appt in am Referrals: Elmo Escobar MD [Primary Care Provider] - - Critical Care Critical Care Time: No Attestation: On 11/25/20, the high probability of a clinically significant, sudden or life threatening deterioration of the following system(s) required my full and direct attention, intervention and personal management. The time I documented below is in addition to time spent performing reported procedures but includes the following listed in this critical care notation. Medical Decision Making - Medical Records Medical records reviewed: Yes: I reviewed the patient's medical records. - Ramses Inquiry Pt receiving controlled substance: No Vital Signs: 11/25/20 19:50 Temperature 98.4 F Temperature Source Oral Pulse Rate [Right] 124 H Respiratory Rate 16 Blood Pressure [Right Arm] 142/83 H Blood Pressure Mean [Right Arm] 102 02 Sat by Pulse Oximetry 95 - Lab Data Lab results reviewed: Yes: I reviewed the patient's lab results. Lab Results 11/25/20 20:00: Urine Color Yellow, Urine Appearance Clear, Urine pH 6.0, Ur Specific [place] 1.025, Urine Protein Negative, Urine Glucose (UA) Negative, Urine Ketones Negative, Urine Blood Negative, Urine Nitrate Negative, Urine Bilirubin Negative, Urine Urobilinogen 0.2, Ur Leukocyte Esterase Negative, Urine RBC 3-5, Urine WBC 5-10, Ur Squamous Epith Cells 3-5, Urine Bacteria 1+ 11/25/20 20:00: Urine Opiates Screen Negative, Urine Methadone Screen Negative, Ur Barbituates Screen Negative, Ur Phencyclidine Scrn Negative, Ur Amphetamines Screen Negative, U Benzodiazepines Scrn Negative, Urine Cocaine Screen Negative, U Marijuana (THC) Screen Positive H 11/25/20 20:10: WBC 6.0, RBC 4.03 L, Hgb 11.9 L, Hct 36.4 L, MCV 90.4, MCH 29.5, MCHC 32.6, RDW 15.0, Plt Count 208, MPV 8.6, Neut % (Auto) 55.7, Lymph % (Auto) 37.9, [place] % (Auto) 4.7, Eos % (Auto) 0.4, Baso % (Auto) 1.3, Neut # (Auto) 3.3, Lymph # (Auto) 2.3, [place] # (Auto) 0.3, Eos # (Auto) 0.0, Baso # (Auto) 0.1 11/25/20 20:10: Sodium 140, Potassium 3.4 L, Chloride 105, Carbon Dioxide 25, Anion Gap 13.4, BUN 8, Creatinine 0.50 L, Estimated Creat Clear 241, Estimated GFR 142, Est GFR ( Amer) 172, Glucose 154 H, Calcium 9.3, Total Bilirubin 0.2, AST 29, ALT 53, Alkaline Phosphatase 101, Total Protein 6.8, Albumin 3.9, Globulin 2.9, Albumin/Globulin Ratio 1.3, Amylase 71, Lipase 176 Result diagrams: 11/25/20 20:10 11/25/20 20:10 Medical Decision Narrative: pt has appt in am with pcp Nausea/Vomiting/Diarrhea HPI - General Chief complaint: Abdominal Pain Stated complaint: Upper Abdominal Pain with N/V Time Seen by Provider: 11/25/20 20:44 Mode of Arrival: Ambulatory Source of Information: Patient, Medical Record Limitations: No Limitations Description of Symptoms (Recalled from ER Triage Doc. by RN): pt c/o RUQ pain with n/v that started today - History of Present Illness HPI Narrative: has intermittent episodes of upper abd pain - hx of pancreatitis MD complaint: nausea, abdominal pain Onset (ago): hour(s) Associated Abdominal Pain: Yes Location of pain: LUQ Associated symptoms: nausea/vomiting - Related Data Home Medications Medication Instructions Recorded Confirmed methocarbamol 500 mg tablet 500 mg PO TIDP PRN tab 05/09/20 10/16/20 pregabalin 200 mg capsule 200 mg PO BID cap 05/09/20 10/16/20 venlafaxine 150 mg 150 mg PO DAILY cap 05/09/20 10/16/20 capsule,extended release 24 hr Lurasidone HCl [Latuda] 40 mg PO HS 06/23/20 10/16/20 cloNIDine HCL [cloNIDine 0.1mg 0.1 mg PO BIDP PRN 06/23/20 10/04/20 Tablet] Lipase/Protease/Amylase [Creon] 1 cap PO TID 08/30/20 10/04/20 Previous Rx's Me
[2020-11-25 21:02] VITALS: BP 145/88; PULSE 82; RESP 20; TEMP 36.8; O2SAT 98
== END 2020-11-25 21:04 | disposition home or self-care (01) ==
PROVIDERS: Emergency Provider Emergency Medicine; PCP Family Medicine
DX: R10.12 Left upper quadrant pain (principal); R10.11 Right upper quadrant pain; E78.5 Hyperlipidemia, unspecified; F41.9 Anxiety disorder, unspecified; F12.10 Cannabis abuse, uncomplicated; F17.210 Nicotine dependence, cigarettes, uncomplicated
CPT/HCPCS: 80053; 80305; 81001; 82150; 83690; 85025; 96372; 99283

== ENCOUNTER 2021-01-29 17:05 | Emergency (ER) | payer BC, SELFPAY ==
[2021-01-29 17:06] VITALS: BP 146/83; PULSE 117; RESP 18; TEMP 36.7; O2SAT 97; BMI 34.9
--- NOTE | 2021-01-29 17:16 | HMH.EDGENADL ---
ED Disposition Clinical Impression: Pancreatitis Qualifiers: Chronicity: chronic Pancreatitis type: unspecified pancreatitis type Qualified Code(s): K86.1 - Other chronic pancreatitis Disposition: Home, Self-Care Condition on Discharge: Good Instructions: Acute Pancreatitis, Chronic Pancreatitis Prescriptions: Oxycodone HCl/Acetaminophen [Oxycodone-Acetaminophen 5-325] 1 each PO Q6 PRN 2 Days #8 tab PRN Reason: Moderate To Severe Pain Prescription Printed Ondansetron [Zofran 4mg ODT] 2 mg PO Q8 PRN #15 tab PRN Reason: Nausea Prescription Printed Referrals: Elmo Escobar MD [Primary Care Provider] - - Critical Care Critical Care Time: No Attestation: On , the high probability of a clinically significant, sudden or life threatening deterioration of the following system(s) required my full and direct attention, intervention and personal management. The time I documented below is in addition to time spent performing reported procedures but includes the following listed in this critical care notation. Medical Decision Making - Ramses Inquiry Pt receiving controlled substance: Yes Ramses was queried for this patient: Yes (last rx december 13) Risks and benefits of using a controlled substance: were discussed with pt by me Vital Signs: 01/29/21 17:06 01/29/21 17:45 01/29/21 18:50 Temperature 98.0 F 98 F Temperature Source Oral Oral Pulse Rate 99 H 89 Pulse Rate [Left Radial] 117 H Respiratory Rate 18 16 16 Blood Pressure 123/78 102/74 L Blood Pressure [Right Arm] 146/83 H Blood Pressure Mean [Right Arm] 104 Blood Pressure Source [Right Arm] Automatic Cuff Blood Pressure Position Sitting Sitting Blood Pressure Position [Right Arm] Sitting 02 Sat by Pulse Oximetry 97 96 Oxygen Delivery Method Room Air Room Air Room Air - Lab Data Lab Results 01/29/21 17:23: Urine Color Yellow, Urine Appearance Sl cloudy, Urine pH 7.0, Ur Specific [place] 1.020, Urine Protein Negative, Urine Glucose (UA) Negative, Urine Ketones Negative, Urine Blood Negative, Urine Nitrate Negative, Urine Bilirubin Negative, Urine Urobilinogen 0.2, Ur Leukocyte Esterase Negative, Urine RBC Occasional, Urine WBC Occasional, Ur Squamous Epith Cells 10-20, Urine Bacteria 2+ 01/29/21 17:23: Urine HCG, Qual Negative 01/29/21 17:23: WBC 6.3, RBC 4.42, Hgb 12.6, Hct 37.6, MCV 85.0, MCH 28.6, MCHC 33.6, RDW 14.7, Plt Count 232, MPV 8.5, Neut % (Auto) 54.6, Lymph % (Auto) 39.7, [place] % (Auto) 4.1, Eos % (Auto) 0.3, Baso % (Auto) 1.4, Neut # (Auto) 3.4, Lymph # (Auto) 2.5, [place] # (Auto) 0.3, Eos # (Auto) 0.0, Baso # (Auto) 0.1 01/29/21 17:23: Sodium 136, Potassium 3.8, Chloride 105, Carbon Dioxide 24, Anion Gap 10.8, BUN 12, Creatinine 0.60, Estimated Creat Clear 199, Estimated GFR 114, Est GFR ( Amer) 138, Glucose 112 H, Calcium 8.9, Total Bilirubin < 0.1 L, AST 34, ALT 37, Alkaline Phosphatase 86, Total Protein 6.9, Albumin 4.2, Globulin 2.7, Albumin/Globulin Ratio 1.6, Lipase 497 H Result diagrams: 01/29/21 17:23 01/29/21 17:23 Orders (Tests/Meds): ED MEDICATIONS Discontinued Medications Generic Name Dose Route Start Last Admin Trade Name Karen PRN Reason Stop Dose Admin Hydromorphone HCl 0.5 mg 01/29/21 18:52 01/29/21 18:38 Hydromorphone 2mg/Ml Syringe IV 01/29/21 18:53 0.5 mg ONCE ONE Administration Sodium Chloride 1,000 mls @ 999 mls/hr 01/29/21 17:30 01/29/21 17:32 Sod Chlor 0.9% 1000ml Bag IV 01/29/21 18:30 999 mls/hr .Q1H1M INO Administration Metoclopramide HCl 10 mg 01/29/21 17:14 01/29/21 17:32 Metoclopramide Hcl 10mg/2ml Vial IVP 01/29/21 17:15 10 mg ONCE ONE Administration Morphine Sulfate 5 mg 01/29/21 17:14 01/29/21 17:28 Morphine 10mg/Ml Syringe IV 01/29/21 17:15 Not Given ONCE ONE Ondansetron HCl 8 mg 01/29/21 17:14 01/29/21 17:32 Ondansetron 4mg/2ml Vial IV 01/29/21 17:15 8 mg ONCE ONE Administration Oxycodone/Acetaminophen 1 each 01/29
[2021-01-29 17:29] LABS: Microscopic, Urine URINE MICROSCOPIC (MICROSCOPIC)
[2021-01-29 17:32] LABS: Basophils # 0.1 K/mm3 (0-0.2); Basophils % 1.4 % (0.1-2.0); Eosinophils % 0.3 % (0.1-12.0); Hematocrit 37.6 % (37.0-47.0); Hemoglobin 12.6 g/dL (12.2-16.2); Lymphocytes # 2.5 K/mm3 (0.7-4.5); Lymphocytes % 39.7 % (10-50); Mean Corpuscular HGB Conc 33.6 g/dL (31.8-35.4); Mean Corpuscular Hemoglobin 28.6 pg (27.0-31.2); Mean Platelet Volume 8.5 fl (7.4-10.4); Monocytes # 0.3 K/mm3 (0.1-1.0); Monocytes % 4.1 % (1.7-9.3); Neutrophils # 3.4 K/mm3 (1.8-7.8); Neutrophils % 54.6 % (37.0-80.0); Platelet Count 232 K/mm3 (142-424); Red Blood Count 4.42 M/mm3 (4.20-5.40); Red Cell Distribution Width 14.7 % (11.5-17.5); White Blood Count 6.3 K/mm3 (4.8-10.8)
[2021-01-29 17:34] LABS: Appearance,Urine SL CLOUDY (Clear); Bilirubin,Urine Negative (Negative); Blood, Urine Negative (Negative); Color,Urine YELLOW (Yellow); Glucose,Urine (UA) Negative (Negative); Ketones,Urine Negative (Negative); Leukocyte Esterase,Urine Negative (Negative); Nitrate,Urine Negative (Negative); Protein,Urine Negative (Negative); Urobilinogen,Urine 0.2 EU/dl (0.2)
[2021-01-29 17:44] LABS: Urine Pregnancy, HCG Qual. Negative (Negative)
[2021-01-29 17:45] VITALS: BP 123/78; PULSE 99; RESP 16; O2SAT 96
[2021-01-29 17:49] LABS: Alanine Aminotransferase 37 U/L (12-78); Albumin Level 4.2 g/dl (3.5-5.0); Albumin/Globulin Ratio 1.6 (1.1-1.8); Alkaline Phosphatase 86 U/L (38-126); Anion Gap 10.8 mEq/L (5-15); Aspartate Amino Transferase 34 U/L (14-36); Blood Urea Nitrogen 12 mg/dl (7-17); Calcium 8.9 mg/dl (8.4-10.2); Carbon Dioxide 24 mmol/L (22.0-30.0); Chloride 105 mmol/L (98-107); Creatinine Clearance Estimated 199 mL/min (50-200); Estimated Glomerular Filt Rate 114 ml/min (>60); GFR (African American) 138 ML/MIN (>60); Globulin 2.7 g/dL (1.3-3.2); Glucose 112 mg/dl (74-100); Lipase 497 U/L (23-300); Potassium 3.8 mmoL/L (3.5-5.1); Sodium 136 mmol/L (136-145); Total Protein,Serum 6.9 g/dl (6.3-8.2)
[2021-01-29 17:51] LABS: Bilirubin,Total < 0.1 mg/dl (0.2-1.3)
[2021-01-29 18:23] LABS: Bacteria,Urine 2+ /lpf; RBC,Urine Occasional #/hpf (0-3); WBC,Urine Occasional #/hpf (0-3)
[2021-01-29 18:50] VITALS: BP 102/74; PULSE 89; RESP 16; TEMP 36.6; O2SAT 97
== END 2021-01-29 18:51 | disposition home or self-care (01) ==
PROVIDERS: Emergency Provider Emergency Medicine; PCP Family Medicine
DX: K86.1 Other chronic pancreatitis (principal); F41.9 Anxiety disorder, unspecified; E78.5 Hyperlipidemia, unspecified
CPT/HCPCS: 80053; 81001; 81025; 83690; 85025; 87086; 96365; 96375; 99283; J2405

== ENCOUNTER 2021-02-13 19:40 | Emergency (ER) | payer BC, SELFPAY ==
[2021-02-13 19:41] VITALS: BP 163/100; PULSE 124; RESP 18; TEMP 36.8; O2SAT 100; BMI 34.6
[2021-02-13 20:22] LABS: Microscopic, Urine URINE MICROSCOPIC (MICROSCOPIC)
[2021-02-13 20:38] LABS: Appearance,Urine SL CLOUDY (Clear); Blood, Urine Negative (Negative); Color,Urine YELLOW (Yellow); Glucose,Urine (UA) Negative (Negative); Ketones,Urine 1+ (Negative); Leukocyte Esterase,Urine Negative (Negative); Nitrate,Urine Negative (Negative); Protein,Urine TRACE (Negative); Specific Gravity, Urine 1.025 (1.005-1.030); Urobilinogen,Urine 0.2 EU/dl (0.2)
[2021-02-13 20:47] LABS: Urine Pregnancy, HCG Qual. Negative (Negative)
[2021-02-13 20:50] LABS: Bilirubin,Urine 1+ (Negative)
[2021-02-13 20:57] LABS: Amphetamine/Metha Screen,Urine Negative ng/ml (<1000)
[2021-02-13 20:58] LABS: Benzodiazepines Screen,Urine Negative ng/ml (<200)
[2021-02-13 21:00] LABS: Cocaine Screen,Urine Negative ng/ml (<300); Methadone Screen,Urine Negative ng/ml (<300)
[2021-02-13 21:01] LABS: Opiate Screen,Urine Positive ng/ml (<300); Phencyclidine Screen,Urine Negative ng/ml (<25)
[2021-02-13 21:08] LABS: Barbiturates Screen,Urine Negative ng/ml (<200)
[2021-02-13 21:11] LABS: Cannabinoid Screen,Urine Positive ng/ml (<50)
--- NOTE | 2021-02-13 21:21 | HMH.EDSKAF ---
ED Disposition Clinical Impression: Impetigo Disposition: Home, Self-Care Condition on Discharge: Good Instructions: DI for Impetigo Additional Instructions: use meds and see pcp for follow up Prescriptions: clindamycin HCL [Clindamycin HCl] 300 mg PO TID #21 cap Transmission Status: Sent to [facility] Referrals: Elmo Escobar MD [Primary Care Provider] - - Critical Care Critical Care Time: No Attestation: On 02/13/21, the high probability of a clinically significant, sudden or life threatening deterioration of the following system(s) required my full and direct attention, intervention and personal management. The time I documented below is in addition to time spent performing reported procedures but includes the following listed in this critical care notation. Medical Decision Making - Medical Records Medical records reviewed: Yes: I reviewed the patient's medical records. - Ramses Inquiry Pt receiving controlled substance: No Vital Signs: 02/13/21 19:41 Temperature 98.2 F Temperature Source Oral Pulse Rate [Right Radial] 124 H Respiratory Rate 18 Blood Pressure [Right Arm] 163/100 H Blood Pressure Mean [Right Arm] 121 Blood Pressure Source [Right Arm] Automatic Cuff Blood Pressure Position [Right Arm] Sitting 02 Sat by Pulse Oximetry 100 Oxygen Delivery Method Room Air - Lab Data Lab results reviewed: Yes: I reviewed the patient's lab results. Lab Results 02/13/21 20:08: Urine Color Yellow, Urine Appearance Sl cloudy, Urine pH 6.0, Ur Specific [place] 1.025, Urine Protein Trace, Urine Glucose (UA) Negative, Urine Ketones 1+, Urine Blood Negative, Urine Nitrate Negative, Urine Bilirubin 1+ A, Urine Urobilinogen 0.2, Ur Leukocyte Esterase Negative, Urine RBC Occasional, Urine WBC 5-10, Ur Squamous Epith Cells 5-10, Urine Bacteria 1+ 02/13/21 20:08: Urine HCG, Qual Negative 02/13/21 20:08: Urine Opiates Screen Positive H, Urine Methadone Screen Negative, Ur Barbituates Screen Negative, Ur Phencyclidine Scrn Negative, Ur Amphetamines Screen Negative, U Benzodiazepines Scrn Negative, Urine Cocaine Screen Negative, U Marijuana (THC) Screen Positive H Orders (Tests/Meds): ED MEDICATIONS Generic Name Dose Route Start Last Admin Trade Name Freq PRN Reason Stop Dose Admin Mupirocin 1 gm 02/13/21 22:30 Mupirocin 2% Ointment 22gm Tube TP 03/15/21 22:29 BID REPLACED BY [facility] Medical Decision Narrative: has nonspecific dermatitis and will treat conservative at this time Skin/Abscess/FB HPI - General Chief complaint: Skin/Abscess/Foreign Body Stated complaint: rash Time Seen by Provider: 02/13/21 20:00 Mode of Arrival: Ambulatory Source of Information: Patient, Medical Record Limitations: No Limitations Description of Symptoms (Recalled from ER Triage Doc. by RN): Pt reports a rash and my body feels like its on fire . Pt says she noticed rash 4 days ago when she was at hospital. She reports taking a bath in hydrogen peroxide today as well. - History of Present Illness HPI narrative: rash to ant chest and scalp over the last few days - recent admit at for pancreatitis MD complaint: rash Onset (ago): day(s) Tetanus up to date: unsure Location: head, chest Severity: moderate Associated symptoms: denies other symptoms Treatments prior to arrival: none - Related Data Home Medications Medication Instructions Recorded Confirmed methocarbamol 500 mg tablet 500 mg PO TIDP PRN tab 05/09/20 12/27/20 venlafaxine 150 mg 150 mg PO DAILY cap 05/09/20 12/27/20 capsule,extended release 24 hr Lipase/Protease/Amylase [Creon] 1 cap PO TID 08/30/20 12/27/20 diclofenac sodium 1 % topical gel 2 g TOPICAL QID g 11/26/20 12/27/20 hydroxyzine pamoate 25 mg capsule 25 mg PO HS cap 11/26/20 12/27/20 lactulose 10 gram/15 mL oral 10 ml PO ONCE ml 11/26/20 12/27/20 solution lidocaine 5 % topical patch 1 patch TOPICAL each 11/26/20 12/27/20 pantoprazole 40 mg tablet,delayed 40 mg PO
[2021-02-13 21:25] LABS: Bacteria,Urine 1+ /lpf; RBC,Urine Occasional #/hpf (0-3)
[2021-02-13 22:50] VITALS: BP 120/84; PULSE 90; RESP 16; TEMP 36.7; O2SAT 99
== END 2021-02-13 22:52 | disposition home or self-care (01) ==
PROVIDERS: Emergency Provider Emergency Medicine; PCP Family Medicine
DX: L01.00 Impetigo, unspecified (principal); E78.5 Hyperlipidemia, unspecified; F41.9 Anxiety disorder, unspecified; M79.7 Fibromyalgia; F17.210 Nicotine dependence, cigarettes, uncomplicated
CPT/HCPCS: 80305; 81001; 81025; 99281

== ENCOUNTER → 2021-03-20 10:46 | Outpatient (CLI) | payer BC, SELFPAY | PROVIDERS: PCP Family Medicine; Visit Provider Nurse Practitioner | DX: Z20.822 Contact with and (suspected) exposure to COVID-19 (principal) | CPT/HCPCS: C9803; U0003; U0005 ==

== ENCOUNTER 2021-04-26 23:34 | Emergency (ER) | payer BC, SELFPAY ==
[2021-04-26 23:36] VITALS: BP 129/93; PULSE 74; RESP 16; TEMP 36.9; O2SAT 99; BMI 34.9
[2021-04-27 00:30] LABS: Chloride 103 mmol/L (98-107); Potassium 3.8 mmoL/L (3.5-5.1); Sodium 137 mmol/L (136-145)
[2021-04-27 00:32] LABS: Amylase 59 U/L (30-110)
[2021-04-27 00:33] LABS: Alanine Aminotransferase 15 U/L (12-78); Albumin Level 3.7 g/dl (3.5-5.0); Albumin/Globulin Ratio 1.4 (1.1-1.8); Alkaline Phosphatase 77 U/L (38-126); Anion Gap 7.8 mEq/L (5-15); Aspartate Amino Transferase 29 U/L (14-36); Bilirubin,Total 0.5 mg/dl (0.2-1.3); Blood Urea Nitrogen 3 mg/dl (7-17); Calcium 8.1 mg/dl (8.4-10.2); Carbon Dioxide 30 mmol/L (22.0-30.0); Creatinine Clearance Estimated 238 mL/min (50-200); Estimated Glomerular Filt Rate 141 ml/min (>60); GFR (African American) 171 ML/MIN (>60); Globulin 2.6 g/dL (1.3-3.2); Glucose 92 mg/dl (74-100); Lipase 69 U/L (23-300); Total Protein,Serum 6.3 g/dl (6.3-8.2)
[2021-04-27 00:35] LABS: Basophils # 0.1 K/mm3 (0-0.2); Basophils % 2.7 % (0.1-2.0); Eosinophils % 0.5 % (0.1-12.0); Hemoglobin 12.2 g/dL (12.2-16.2); Lymphocytes # 2.2 K/mm3 (0.7-4.5); Lymphocytes % 47.2 % (10-50); Mean Corpuscular HGB Conc 31.3 g/dL (31.8-35.4); Mean Corpuscular Hemoglobin 27.5 pg (27.0-31.2); Mean Corpuscular Volume 87.9 fl (81-99); Mean Platelet Volume 8.7 fl (7.4-10.4); Monocytes # 0.2 K/mm3 (0.1-1.0); Monocytes % 4.9 % (1.7-9.3); Neutrophils # 2.1 K/mm3 (1.8-7.8); Neutrophils % 44.7 % (37.0-80.0); Platelet Count 195 K/mm3 (142-424); Red Blood Count 4.43 M/mm3 (4.20-5.40); Red Cell Distribution Width 16.3 % (11.5-17.5); White Blood Count 4.6 K/mm3 (4.8-10.8)
[2021-04-27 00:36] LABS: Microscopic, Urine URINE MICROSCOPIC (MICROSCOPIC)
[2021-04-27 00:47] LABS: Appearance,Urine CLEAR (Clear); Bilirubin,Urine Negative (Negative); Blood, Urine Negative (Negative); Color,Urine YELLOW (Yellow); Glucose,Urine (UA) Negative (Negative); Ketones,Urine Negative (Negative); Leukocyte Esterase,Urine Negative (Negative); Nitrate,Urine Negative (Negative); Protein,Urine Negative (Negative); Specific Gravity, Urine 1.015 (1.005-1.030); Urobilinogen,Urine 0.2 EU/dl (0.2)
[2021-04-27 00:51] LABS: Urine Pregnancy, HCG Qual. Negative (Negative)
[2021-04-27 00:55] LABS: Bacteria,Urine Trace /lpf; WBC,Urine Occasional #/hpf (0-3)
[2021-04-27 01:00] VITALS: BP 119/82; PULSE 75; O2SAT 99
[2021-04-27 01:10] LABS: Benzodiazepines Screen,Urine Negative ng/ml (<200)
[2021-04-27 01:11] LABS: Amphetamine/Metha Screen,Urine Negative ng/ml (<1000); Barbiturates Screen,Urine Negative ng/ml (<200)
[2021-04-27 01:12] LABS: Cannabinoid Screen,Urine Positive ng/ml (<50)
[2021-04-27 01:13] LABS: Cocaine Screen,Urine Negative ng/ml (<300); Methadone Screen,Urine Negative ng/ml (<300)
[2021-04-27 01:14] LABS: Opiate Screen,Urine Positive ng/ml (<300); Phencyclidine Screen,Urine Negative ng/ml (<25)
[2021-04-27 01:14] LABS: Erythrocyte Sedimentation Rate 26 mm/hr (0-20)
[2021-04-27 01:44] LABS: Procalcitonin < 0.030 ng/mL (0.0-2.0)
--- NOTE | 2021-04-27 02:00 | HMH.EDNVD ---
ED Disposition Clinical Impression: Abdominal pain Qualifiers: Abdominal location: generalized Qualified Code(s): R10.84 - Generalized abdominal pain Disposition: Home, Self-Care Condition on Discharge: Good Instructions: DI for Acute Abdominal Pain Referrals: Elmo Escobar MD [Primary Care Provider] - - Critical Care Critical Care Time: No Attestation: On 04/26/21, the high probability of a clinically significant, sudden or life threatening deterioration of the following system(s) required my full and direct attention, intervention and personal management. The time I documented below is in addition to time spent performing reported procedures but includes the following listed in this critical care notation. Medical Decision Making - Medical Records Medical records reviewed: Yes: I reviewed the patient's medical records. - Ramses Inquiry Pt receiving controlled substance: No Vital Signs: 04/26/21 23:36 04/27/21 01:00 Temperature 98.4 F Temperature Source Oral Pulse Rate 75 Pulse Rate [Right] 74 Respiratory Rate 16 Blood Pressure 119/82 Blood Pressure [Right Arm] 129/93 H Blood Pressure Mean 94 Blood Pressure Mean [Right Arm] 105 02 Sat by Pulse Oximetry 99 99 - Lab Data Lab results reviewed: Yes: I reviewed the patient's lab results. Lab Results 04/27/21 00:00: Urine Opiates Screen Positive H, Urine Methadone Screen Negative, Ur Barbituates Screen Negative, Ur Phencyclidine Scrn Negative, Ur Amphetamines Screen Negative, U Benzodiazepines Scrn Negative, Urine Cocaine Screen Negative, U Marijuana (THC) Screen Positive H 04/27/21 00:01: Urine Color Yellow, Urine Appearance Clear, Urine pH 8.0, Ur Specific [place] 1.015, Urine Protein Negative, Urine Glucose (UA) Negative, Urine Ketones Negative, Urine Blood Negative, Urine Nitrate Negative, Urine Bilirubin Negative, Urine Urobilinogen 0.2, Ur Leukocyte Esterase Negative, Urine RBC None, Urine WBC Occasional, Ur Squamous Epith Cells 10-20, Urine Bacteria Trace 04/27/21 00:01: Urine HCG, Qual Negative 04/27/21 00:14: WBC 4.6 L, RBC 4.43, Hgb 12.2, Hct 39.0, MCV 87.9, MCH 27.5, MCHC 31.3 L, RDW 16.3, Plt Count 195, MPV 8.7, Neut % (Auto) 44.7, Lymph % (Auto) 47.2, [place] % (Auto) 4.9, Eos % (Auto) 0.5, Baso % (Auto) 2.7 H, Neut # (Auto) 2.1, Lymph # (Auto) 2.2, [place] # (Auto) 0.2, Eos # (Auto) 0.0, Baso # (Auto) 0.1, ESR 26 H 04/27/21 00:14: Sodium 137, Potassium 3.8, Chloride 103, Carbon Dioxide 30, Anion Gap 7.8, BUN 3 L, Creatinine 0.50 L, Estimated Creat Clear 238, Estimated GFR 141, Est GFR ( Amer) 171, Glucose 92, Calcium 8.1 L, Total Bilirubin 0.5, AST 29, ALT 15, Alkaline Phosphatase 77, C-Reactive Protein 9.0 H, Total Protein 6.3, Albumin 3.7, Globulin 2.6, Albumin/Globulin Ratio 1.4, Amylase 59, Lipase 69, Procalcitonin < 0.030 Result diagrams: 04/27/21 00:14 04/27/21 00:14 Orders (Tests/Meds): ED MEDICATIONS Generic Name Dose Route Start Last Admin Trade Name Freq PRN Reason Stop Dose Admin Sodium Chloride 1,000 mls @ 999 mls/hr 04/27/21 00:30 04/27/21 00:52 Sod Chlor 0.9% 1000ml Bag IV 04/27/21 01:30 999 mls/hr .Q1H1M INO Administration Discontinued Medications Generic Name Dose Route Start Last Admin Trade Name Freq PRN Reason Stop Dose Admin Hydromorphone HCl 1 mg 04/27/21 00:22 04/27/21 00:51 Hydromorphone 2mg/Ml Syringe IV 04/27/21 00:23 1 mg ONCE ONE Administration Promethazine HCl 25 mg 04/27/21 00:22 04/27/21 00:51 Promethazine Hcl 25mg/Ml 1ml Vial IV 04/27/21 00:23 25 mg ONCE ONE Administration Sodium Chloride 25 ml 04/27/21 00:22 Sodium Chloride 0.9% 25ml Bag IV 04/27/21 00:23 ONCE ONE Medical Decision Narrative: recurent abd pain with stable labs and exam Nausea/Vomiting/Diarrhea HPI - General Chief complaint: Abdominal Pain Stated complaint: Vomiting,Diarrhea and Abdominal Pain Weak Time Seen by Provider: 04/27/21 00:25 Mode of Arrival: Ambulat
[2021-04-27 02:11] VITALS: BP 104/72; PULSE 72; RESP 16; TEMP 36.9; O2SAT 97
== END 2021-04-27 02:13 | disposition home or self-care (01) ==
PROVIDERS: Emergency Provider Emergency Medicine; PCP Family Medicine
DX: R10.84 Generalized abdominal pain (principal); R10.32 Left lower quadrant pain; E78.5 Hyperlipidemia, unspecified; E07.9 Disorder of thyroid, unspecified; M79.7 Fibromyalgia; M19.90 Unspecified osteoarthritis, unspecified site; K85.90 Acute pancreatitis without necrosis or infection, unspecified; E66.9 Obesity, unspecified; F41.9 Anxiety disorder, unspecified; Z79.899 Other long term (current) drug therapy; Z88.5 Allergy status to narcotic agent; Z88.6 Allergy status to analgesic agent; Z68.34 Body mass index [BMI] 34.0-34.9, adult; Z87.891 Personal history of nicotine dependence; Z82.49 Family history of ischemic heart disease and other diseases of the circulatory system; Z80.9 Family history of malignant neoplasm, unspecified
CPT/HCPCS: 80053; 80305; 81001; 81025; 82150; 83690; 84145; 85025; 85651; 86140; 96361; 96365; 96374; 96375; 99284

== ENCOUNTER 2021-04-29 23:40 | Emergency (ER) | payer BC, SELFPAY ==
[2021-04-29 23:42] VITALS: BP 175/103; PULSE 104; RESP 20; TEMP 36.7; O2SAT 99; BMI 34.6
[2021-04-29 23:50] VITALS: BMI 34.6
[2021-04-29 23:58] LABS: Microscopic, Urine URINE MICROSCOPIC (MICROSCOPIC)
[2021-04-30 00:03] LABS: Urine Pregnancy, HCG Qual. Negative (Negative)
[2021-04-30 00:04] LABS: Appearance,Urine CLEAR (Clear); Bilirubin,Urine Negative (Negative); Blood, Urine Negative (Negative); Color,Urine YELLOW (Yellow); Glucose,Urine (UA) Negative (Negative); Ketones,Urine Negative (Negative); Leukocyte Esterase,Urine Negative (Negative); Nitrate,Urine Negative (Negative); PH,Urine 6.5 (5.0-8.5); Protein,Urine Negative (Negative); Urobilinogen,Urine 0.2 EU/dl (0.2)
[2021-04-30 00:18] LABS: Basophils # 0.2 K/mm3 (0-0.2); Basophils % 4.1 % (0.1-2.0); Eosinophils # 0.1 K/mm3 (0.0-0.4); Eosinophils % 0.9 % (0.1-12.0); Hematocrit 37.9 % (37.0-47.0); Hemoglobin 11.8 g/dL (12.2-16.2); Lymphocytes # 2.4 K/mm3 (0.7-4.5); Lymphocytes % 41.3 % (10-50); Mean Corpuscular HGB Conc 31.1 g/dL (31.8-35.4); Mean Corpuscular Hemoglobin 27.6 pg (27.0-31.2); Mean Corpuscular Volume 88.6 fl (81-99); Mean Platelet Volume 8.6 fl (7.4-10.4); Monocytes # 0.3 K/mm3 (0.1-1.0); Monocytes % 5.1 % (1.7-9.3); Neutrophils # 2.8 K/mm3 (1.8-7.8); Neutrophils % 48.6 % (37.0-80.0); Platelet Count 219 K/mm3 (142-424); Red Blood Count 4.28 M/mm3 (4.20-5.40); Red Cell Distribution Width 16.3 % (11.5-17.5); White Blood Count 5.7 K/mm3 (4.8-10.8)
[2021-04-30 00:18] LABS: Amphetamine/Metha Screen,Urine Negative ng/ml (<1000)
[2021-04-30 00:19] LABS: Barbiturates Screen,Urine Negative ng/ml (<200)
[2021-04-30 00:20] LABS: Bacteria,Urine 2+ /lpf; Benzodiazepines Screen,Urine Negative ng/ml (<200); Cannabinoid Screen,Urine Positive ng/ml (<50)
[2021-04-30 00:21] LABS: Cocaine Screen,Urine Negative ng/ml (<300); Methadone Screen,Urine Negative ng/ml (<300); Mucus,Urine 1+ /lpf
[2021-04-30 00:22] LABS: Opiate Screen,Urine Positive ng/ml (<300)
[2021-04-30 00:23] LABS: Phencyclidine Screen,Urine Negative ng/ml (<25)
--- NOTE | 2021-04-30 00:49 | HMH.EDNVD ---
ED Disposition Clinical Impression: Abdominal pain Qualifiers: Abdominal location: generalized Qualified Code(s): R10.84 - Generalized abdominal pain Disposition: Home, Self-Care Condition on Discharge: Good Instructions: DI for Acute Abdominal Pain Additional Instructions: call pcp in am Referrals: Elmo Escobar MD [Primary Care Provider] - - Critical Care Critical Care Time: No Attestation: On 04/29/21, the high probability of a clinically significant, sudden or life threatening deterioration of the following system(s) required my full and direct attention, intervention and personal management. The time I documented below is in addition to time spent performing reported procedures but includes the following listed in this critical care notation. Medical Decision Making - Medical Records Medical records reviewed: Yes: I reviewed the patient's medical records. - Ramses Inquiry Pt receiving controlled substance: No Vital Signs: 04/29/21 23:42 Temperature 98.0 F Temperature Source Oral Pulse Rate [Right] 104 H Respiratory Rate 20 Blood Pressure [Right Arm] 175/103 H Blood Pressure Mean [Right Arm] 127 02 Sat by Pulse Oximetry 99 - Lab Data Lab results reviewed: Yes: I reviewed the patient's lab results. Lab Results 04/29/21 23:48: Urine Color Yellow, Urine Appearance Clear, Urine pH 6.5, Ur Specific [place] 1.020, Urine Protein Negative, Urine Glucose (UA) Negative, Urine Ketones Negative, Urine Blood Negative, Urine Nitrate Negative, Urine Bilirubin Negative, Urine Urobilinogen 0.2, Ur Leukocyte Esterase Negative, Urine WBC 3-5, Urine Bacteria 2+, Urine Mucus 1+ 04/29/21 23:48: Urine HCG, Qual Negative 04/29/21 23:48: Urine Opiates Screen Positive H, Urine Methadone Screen Negative, Ur Barbituates Screen Negative, Ur Phencyclidine Scrn Negative, Ur Amphetamines Screen Negative, U Benzodiazepines Scrn Negative, Urine Cocaine Screen Negative, U Marijuana (THC) Screen Positive H 04/30/21 00:10: WBC 5.7, RBC 4.28, Hgb 11.8 L, Hct 37.9, MCV 88.6, MCH 27.6, MCHC 31.1 L, RDW 16.3, Plt Count 219, MPV 8.6, Neut % (Auto) 48.6, Lymph % (Auto) 41.3, [place] % (Auto) 5.1, Eos % (Auto) 0.9, Baso % (Auto) 4.1 H, Neut # (Auto) 2.8, Lymph # (Auto) 2.4, [place] # (Auto) 0.3, Eos # (Auto) 0.1, Baso # (Auto) 0.2 04/30/21 00:10: Sodium 135 L, Potassium 4.1, Chloride 102, Carbon Dioxide 25, Anion Gap 12.1, BUN 8 D, Creatinine 0.60, Estimated Creat Clear 197, Estimated GFR 114, Est GFR ( Amer) 138, Glucose 81, Calcium 8.3 L, Total Bilirubin 0.4, AST 26, ALT 14, Alkaline Phosphatase 83, Total Protein 6.3, Albumin 3.7, Globulin 2.6, Albumin/Globulin Ratio 1.4, Amylase 88, Lipase 303 H Result diagrams: 04/30/21 00:10 04/30/21 00:10 Orders (Tests/Meds): ED MEDICATIONS Discontinued Medications Generic Name Dose Route Start Last Admin Trade Name Freq PRN Reason Stop Dose Admin Hydromorphone HCl 1 mg 04/30/21 01:07 04/30/21 01:09 Hydromorphone 2mg/Ml Syringe IM 04/30/21 01:08 1 mg ONCE ONE Administration Promethazine HCl 25 mg 04/30/21 01:07 04/30/21 01:09 Promethazine Hcl 25mg/Ml 1ml Vial IM 04/30/21 01:08 25 mg ONCE ONE Administration ORDERS Category Date Time Status Amylase Stat Lab 04/29/21 23:51 Results Comprehensive Metabolic Panel Stat Lab 04/29/21 23:51 Results Lipase Stat Lab 04/29/21 23:51 Results Procalcitonin Stat Lab 04/29/21 23:51 Results Urine Culture Stat Micro 04/29/21 23:48 Received Medical Decision Narrative: has recurrent abd pain and stable labs and exam Nausea/Vomiting/Diarrhea HPI - General Chief complaint: Abdominal Pain Stated complaint: Vomiting,diarrhea,abdominal pain Time Seen by Provider: 04/30/21 00:50 Mode of Arrival: Ambulatory Source of Information: Patient, Medical Record Limitations: No Limitations Description of Symptoms (Recalled from ER Triage Doc. by RN): pt c/o n/v/d and RLQ pain since . - History of Present Illness H
[2021-04-30 00:53] LABS: Chloride 102 mmol/L (98-107); Potassium 4.1 mmoL/L (3.5-5.1); Sodium 135 mmol/L (136-145)
[2021-04-30 00:55] LABS: Amylase 88 U/L (30-110); Blood Urea Nitrogen 8 mg/dl (7-17); Creatinine Clearance Estimated 197 mL/min (50-200); Estimated Glomerular Filt Rate 114 ml/min (>60); GFR (African American) 138 ML/MIN (>60)
[2021-04-30 00:56] LABS: Alanine Aminotransferase 14 U/L (12-78); Albumin Level 3.7 g/dl (3.5-5.0); Albumin/Globulin Ratio 1.4 (1.1-1.8); Alkaline Phosphatase 83 U/L (38-126); Anion Gap 12.1 mEq/L (5-15); Aspartate Amino Transferase 26 U/L (14-36); Bilirubin,Total 0.4 mg/dl (0.2-1.3); Calcium 8.3 mg/dl (8.4-10.2); Carbon Dioxide 25 mmol/L (22.0-30.0); Globulin 2.6 g/dL (1.3-3.2); Glucose 81 mg/dl (74-100); Lipase 303 U/L (23-300); Total Protein,Serum 6.3 g/dl (6.3-8.2)
[2021-04-30 01:31] VITALS: BP 175/103; PULSE 98; RESP 16; TEMP 36.9; O2SAT 98
[2021-04-30 01:44] LABS: Procalcitonin < 0.030 ng/mL (0.0-2.0)
== END 2021-04-30 01:33 | disposition home or self-care (01) ==
PROVIDERS: Emergency Provider Emergency Medicine; PCP Family Medicine
DX: R10.84 Generalized abdominal pain (principal); R10.31 Right lower quadrant pain; R11.2 Nausea with vomiting, unspecified; R19.7 Diarrhea, unspecified; E78.5 Hyperlipidemia, unspecified; E07.9 Disorder of thyroid, unspecified; M19.90 Unspecified osteoarthritis, unspecified site; M79.7 Fibromyalgia; K85.90 Acute pancreatitis without necrosis or infection, unspecified; E66.9 Obesity, unspecified; Z79.899 Other long term (current) drug therapy; Z88.5 Allergy status to narcotic agent; Z88.6 Allergy status to analgesic agent; Z87.891 Personal history of nicotine dependence; Z68.34 Body mass index [BMI] 34.0-34.9, adult; Z82.49 Family history of ischemic heart disease and other diseases of the circulatory system; Z80.9 Family history of malignant neoplasm, unspecified
CPT/HCPCS: 80053; 80305; 81001; 81025; 82150; 83690; 84145; 85025; 87086; 87088; 87186; 96372; 99283

== ENCOUNTER 2021-05-07 20:55 | Emergency (ER) | payer BC, SELFPAY ==
[2021-05-07 20:56] VITALS: BP 154/92; PULSE 79; RESP 16; TEMP 36.7; O2SAT 100; BMI 34.6
[2021-05-07 21:10] VITALS: BMI 34.6
--- NOTE | 2021-05-07 21:19 | PC.NURSE ---
REQUESTED LAB DRAW FROM LAB. PT AWARE OF PLAN OF CARE AND UPDATED WITH EXPECTED WAITING TIMES.
[2021-05-07 21:35] LABS: Microscopic, Urine URINE MICROSCOPIC (MICROSCOPIC)
[2021-05-07 21:38] LABS: Basophils # 0.1 K/mm3 (0-0.2); Basophils % 1.2 % (0.1-2.0); Eosinophils % 0.1 % (0.1-12.0); Hematocrit 37.8 % (37.0-47.0); Lymphocytes % 31.5 % (10-50); Mean Corpuscular HGB Conc 31.8 g/dL (31.8-35.4); Mean Corpuscular Hemoglobin 28.2 pg (27.0-31.2); Mean Corpuscular Volume 88.6 fl (81-99); Mean Platelet Volume 8.2 fl (7.4-10.4); Monocytes # 0.3 K/mm3 (0.1-1.0); Neutrophils # 3.9 K/mm3 (1.8-7.8); Neutrophils % 62.1 % (37.0-80.0); Platelet Count 235 K/mm3 (142-424); Red Blood Count 4.27 M/mm3 (4.20-5.40); Red Cell Distribution Width 16.5 % (11.5-17.5); White Blood Count 6.3 K/mm3 (4.8-10.8)
[2021-05-07 21:47] LABS: Alanine Aminotransferase 84 U/L (12-78); Albumin/Globulin Ratio 1.4 (1.1-1.8); Alkaline Phosphatase 115 U/L (38-126); Amylase 61 U/L (30-110); Anion Gap 11.4 mEq/L (5-15); Aspartate Amino Transferase 44 U/L (14-36); Bilirubin,Total 0.6 mg/dl (0.2-1.3); Blood Urea Nitrogen 7 mg/dl (7-17); Calcium 9.2 mg/dl (8.4-10.2); Carbon Dioxide 25 mmol/L (22.0-30.0); Chloride 104 mmol/L (98-107); Creatinine Clearance Estimated 197 mL/min (50-200); Estimated Glomerular Filt Rate 114 ml/min (>60); GFR (African American) 138 ML/MIN (>60); Globulin 2.9 g/dL (1.3-3.2); Glucose 119 mg/dl (74-100); Lipase 44 U/L (23-300); Potassium 3.4 mmoL/L (3.5-5.1); Sodium 137 mmol/L (136-145); Total Protein,Serum 6.9 g/dl (6.3-8.2)
[2021-05-07 21:47] LABS: Appearance,Urine CLEAR (Clear); Blood, Urine Negative (Negative); Color,Urine DK YELLOW (Yellow); Glucose,Urine (UA) Negative (Negative); Ketones,Urine TRACE (Negative); Leukocyte Esterase,Urine Negative (Negative); Nitrate,Urine Negative (Negative); Protein,Urine Negative (Negative); Urobilinogen,Urine 0.2 EU/dl (0.2)
[2021-05-07 21:52] LABS: Urine Pregnancy, HCG Qual. Negative (Negative)
[2021-05-07 21:53] LABS: Bilirubin,Urine 1+ (Negative)
[2021-05-07 22:06] LABS: Bacteria,Urine 1+ /lpf
--- NOTE | 2021-05-07 23:09 | HMH.EDNVD ---
ED Disposition Clinical Impression: Abdominal pain Qualifiers: Abdominal location: generalized Qualified Code(s): R10.84 - Generalized abdominal pain Disposition: Home, Self-Care Condition on Discharge: Good Instructions: DI for Nausea -- Adult, DI for Chronic Pain -- Adult Additional Instructions: call pcp in am Referrals: Elmo Escobar MD [Primary Care Provider] - - Critical Care Critical Care Time: No Attestation: On 05/07/21, the high probability of a clinically significant, sudden or life threatening deterioration of the following system(s) required my full and direct attention, intervention and personal management. The time I documented below is in addition to time spent performing reported procedures but includes the following listed in this critical care notation. Medical Decision Making - Medical Records Medical records reviewed: Yes: I reviewed the patient's medical records. - Ramses Inquiry Pt receiving controlled substance: No Vital Signs: 05/07/21 20:56 Temperature 98.1 F Temperature Source Oral Pulse Rate [Left Radial] 79 Respiratory Rate 16 Blood Pressure [Right Arm] 154/92 H Blood Pressure Mean [Right Arm] 112 Blood Pressure Source [Right Arm] Automatic Cuff Blood Pressure Position [Right Arm] Sitting 02 Sat by Pulse Oximetry 100 Oxygen Delivery Method Room Air - Lab Data Lab results reviewed: Yes: I reviewed the patient's lab results. Lab Results 05/07/21 21:07: Urine Color Dk yellow, Urine Appearance Clear, Urine pH 6.0, Ur Specific [place] 1.020, Urine Protein Negative, Urine Glucose (UA) Negative, Urine Ketones Trace, Urine Blood Negative, Urine Nitrate Negative, Urine Bilirubin 1+ A, Urine Urobilinogen 0.2, Ur Leukocyte Esterase Negative, Urine RBC 3-5, Urine WBC 5-10, Ur Squamous Epith Cells 10-20, Urine Bacteria 1+ 05/07/21 21:07: Urine HCG, Qual Negative 05/07/21 21:18: WBC 6.3, RBC 4.27, Hgb 12.0 L, Hct 37.8, MCV 88.6, MCH 28.2, MCHC 31.8, RDW 16.5, Plt Count 235, MPV 8.2, Neut % (Auto) 62.1, Lymph % (Auto) 31.5, [place] % (Auto) 5.0, Eos % (Auto) 0.1, Baso % (Auto) 1.2, Neut # (Auto) 3.9, Lymph # (Auto) 2.0, [place] # (Auto) 0.3, Eos # (Auto) 0.0, Baso # (Auto) 0.1 05/07/21 21:18: Sodium 137, Potassium 3.4 L, Chloride 104, Carbon Dioxide 25, Anion Gap 11.4, BUN 7, Creatinine 0.60, Estimated Creat Clear 197, Estimated GFR 114, Est GFR ( Amer) 138, Glucose 119 H, Calcium 9.2, Total Bilirubin 0.6, AST 44 H, ALT 84 H, Alkaline Phosphatase 115, Total Protein 6.9, Albumin 4.0, Globulin 2.9, Albumin/Globulin Ratio 1.4, Amylase 61, Lipase 44 Result diagrams: 05/07/21 21:18 05/07/21 21:18 Medical Decision Narrative: call pcp for follow up Nausea/Vomiting/Diarrhea HPI - General Chief complaint: Nausea/Vomiting/Diarrhea Stated complaint: abd pain left side Time Seen by Provider: 05/07/21 23:09 Mode of Arrival: Ambulatory Source of Information: Patient, Medical Record Limitations: No Limitations Description of Symptoms (Recalled from ER Triage Doc. by RN): PT WAS SEEN TODAY AT IN THE ER FOR CHRONIC PANCREATITIS. REPORTS HER LABS WERE GOOD. NO SCANS PERFORMED AT THAT TIME. PT REPORTS THAT SHE HAS HAD CONTINUED NAUSEA AND VOMITING AND HAS NOT BEEN ABLE TO KEEP HER PAIN MEDS DOWN. PT DENIES DRUG ABUSE AND ETOH ABUSE. PT REPORTS THAT SHE HAS APPT WITH PCP ON THURSDAY. - History of Present Illness HPI Narrative: ongoing issues with abd pain and vomiting - has hx of pancreatitis - has seen MD complaint: nausea, vomiting, abdominal pain Onset (ago): hour(s) Associated Abdominal Pain: Yes Location of pain: diffuse Severity: moderate Associated symptoms: denies other symptoms - Related Data Home Medications Medication Instructions Recorded Confirmed venlafaxine 150 mg 150 mg PO DAILY cap 05/09/20 05/03/21 capsule,extended release 24 hr diclofenac sodium 1 % topical gel 2 g TOPICAL QID g 11/26/20 05/03/21 hydroxyzine pamoate 25 mg capsule 25 mg PO HS cap
[2021-05-07 23:19] VITALS: BP 120/81; PULSE 72; RESP 18; TEMP 36.7; O2SAT 97
[2021-05-07 23:34] VITALS: BP 149/88; PULSE 78; RESP 16; TEMP 36.5; O2SAT 100
== END 2021-05-07 23:36 | disposition home or self-care (01) ==
PROVIDERS: Emergency Provider Emergency Medicine; PCP Family Medicine
DX: K85.90 Acute pancreatitis without necrosis or infection, unspecified (principal); E78.5 Hyperlipidemia, unspecified; G89.29 Other chronic pain; E66.9 Obesity, unspecified; F41.9 Anxiety disorder, unspecified; F17.210 Nicotine dependence, cigarettes, uncomplicated; Z68.34 Body mass index [BMI] 34.0-34.9, adult; Z82.49 Family history of ischemic heart disease and other diseases of the circulatory system; Z80.9 Family history of malignant neoplasm, unspecified
CPT/HCPCS: 80053; 81001; 81025; 82150; 83690; 85025; 96372; 99213; G0463

== ENCOUNTER 2021-05-08 11:56 | Emergency (ER) | payer BC, SELFPAY ==
[2021-05-08 11:57] VITALS: BP 145/90; PULSE 94; RESP 18; TEMP 37.1; O2SAT 95; BMI 34.6
[2021-05-08 12:30] VITALS: BP 125/77; PULSE 90; O2SAT 95
[2021-05-08 12:41] LABS: Chloride 106 mmol/L (98-107); Sodium 139 mmol/L (136-145)
[2021-05-08 12:42] LABS: Potassium 3.7 mmoL/L (3.5-5.1)
[2021-05-08 12:44] LABS: Alanine Aminotransferase 71 U/L (12-78); Alkaline Phosphatase 109 U/L (38-126); Amylase 53 U/L (30-110); Anion Gap 12.7 mEq/L (5-15); Aspartate Amino Transferase 50 U/L (14-36); Bilirubin,Total 0.6 mg/dl (0.2-1.3); Blood Urea Nitrogen 9 mg/dl (7-17); Carbon Dioxide 24 mmol/L (22.0-30.0); Creatinine Clearance Estimated 197 mL/min (50-200); Estimated Glomerular Filt Rate 114 ml/min (>60); GFR (African American) 138 ML/MIN (>60)
[2021-05-08 12:45] LABS: Albumin Level 4.1 g/dl (3.5-5.0); Albumin/Globulin Ratio 1.4 (1.1-1.8); Calcium 8.4 mg/dl (8.4-10.2); Glucose 115 mg/dl (74-100); Lipase 38 U/L (23-300); Total Protein,Serum 7.1 g/dl (6.3-8.2)
[2021-05-08 12:48] LABS: Basophils # 0.1 K/mm3 (0-0.2); Basophils % 1.5 % (0.1-2.0); Eosinophils % 0.4 % (0.1-12.0); Hematocrit 37.2 % (37.0-47.0); Hemoglobin 11.9 g/dL (12.2-16.2); Lymphocytes # 1.2 K/mm3 (0.7-4.5); Lymphocytes % 27.3 % (10-50); Mean Corpuscular HGB Conc 31.9 g/dL (31.8-35.4); Mean Corpuscular Hemoglobin 27.6 pg (27.0-31.2); Mean Corpuscular Volume 86.8 fl (81-99); Mean Platelet Volume 8.4 fl (7.4-10.4); Monocytes # 0.2 K/mm3 (0.1-1.0); Monocytes % 4.7 % (1.7-9.3); Neutrophils # 2.9 K/mm3 (1.8-7.8); Neutrophils % 66.1 % (37.0-80.0); Platelet Count 242 K/mm3 (142-424); Red Blood Count 4.29 M/mm3 (4.20-5.40); Red Cell Distribution Width 16.4 % (11.5-17.5); White Blood Count 4.5 K/mm3 (4.8-10.8)
--- NOTE | 2021-05-08 12:52 | HMH.EDGENADL ---
ED Disposition Clinical Impression: Chronic abdominal pain Disposition: Home, Self-Care Condition on Discharge: Good Instructions: DI for Abdominal Pain-Adult, DI for Chronic Pain -- Adult Additional Instructions: Follow-up with your primary care provider tomorrow as scheduled. Continue Phenergan, Zofran, and pain medication as previously prescribed by your primary care provider. Referrals: Elmo Escobar MD [Primary Care Provider] - - Critical Care Critical Care Time: No Attestation: On 05/08/21, the high probability of a clinically significant, sudden or life threatening deterioration of the following system(s) required my full and direct attention, intervention and personal management. The time I documented below is in addition to time spent performing reported procedures but includes the following listed in this critical care notation. Medical Decision Making - Medical Records Medical records reviewed: Yes: I reviewed the patient's medical records. MR Comment: Reviewed emergency department note from 05/07/2021. Reviewed [facility] emergency department note from 05/07/2021. Reviewed discharge summary from [facility] admission 04/24/2021 through 04/30/2021. - Ramses Inquiry Pt receiving controlled substance: No Ramses was queried for this patient: Yes Vital Signs: 05/08/21 11:57 Temperature 98.7 F Temperature Source Oral Pulse Rate [Left Radial] 94 H Respiratory Rate 18 Blood Pressure [Right Arm] 145/90 H Blood Pressure Mean [Right Arm] 108 Blood Pressure Source [Right Arm] Automatic Cuff Blood Pressure Position [Right Arm] Sitting 02 Sat by Pulse Oximetry 95 Oxygen Delivery Method Room Air - Lab Data Lab Results 05/08/21 12:09: WBC 4.5 L D, RBC 4.29, Hgb 11.9 L, Hct 37.2, MCV 86.8, MCH 27.6, MCHC 31.9, RDW 16.4, Plt Count 242, MPV 8.4, Neut % (Auto) 66.1, Lymph % (Auto) 27.3, [place] % (Auto) 4.7, Eos % (Auto) 0.4, Baso % (Auto) 1.5, Neut # (Auto) 2.9, Lymph # (Auto) 1.2, [place] # (Auto) 0.2, Eos # (Auto) 0.0, Baso # (Auto) 0.1 05/08/21 12:09: Sodium 139, Potassium 3.7, Chloride 106, Carbon Dioxide 24, Anion Gap 12.7, BUN 9 D, Creatinine 0.60, Estimated Creat Clear 197, Estimated GFR 114, Est GFR ( Amer) 138, Glucose 115 H, Calcium 8.4, Total Bilirubin 0.6, AST 50 H, ALT 71, Alkaline Phosphatase 109, Total Protein 7.1, Albumin 4.1, Globulin 3.0, Albumin/Globulin Ratio 1.4, Amylase 53 D, Lipase 38 Result diagrams: 05/08/21 12:09 05/08/21 12:09 Orders (Tests/Meds): ED MEDICATIONS Discontinued Medications Generic Name Dose Route Start Last Admin Trade Name Freq PRN Reason Stop Dose Admin Sodium Chloride 1,000 mls @ 999 mls/hr 05/08/21 12:30 05/08/21 12:29 Sod Chlor 0.9% 1000ml Bag IV 05/08/21 13:30 999 mls/hr .Q1H1M INO Administration Ketorolac Tromethamine 30 mg 05/08/21 12:23 05/08/21 12:36 Ketorolac 30mg/Ml Vial IV 05/08/21 12:24 30 mg ONCE ONE Administration Ondansetron HCl 4 mg 05/08/21 12:23 05/08/21 12:29 Ondansetron 4mg/2ml Vial IV 05/08/21 12:24 4 mg ONCE ONE Administration - Reevaluation(s) Time: 13:37 Reevaluation #1: States she has to leave because one of her kids is sick. General Adult HPI - General Chief complaint: Abdominal Pain Stated complaint: vomiting Time Seen by Provider: 05/08/21 12:52 Mode of Arrival: Ambulatory Limitations: No Limitations Description of Symptoms (Recalled from ER Triage Doc. by RN): c/o upper quad abdomen pain, n/v, states a hx of pancreatitis and this pain feels like that. - History of Present Illness HPI narrative: Patient has chronic pancreatitis with chronic abdominal pain epigastric and left upper quadrant and has frequent visits to this emergency department as well as [facility] for complaints of abdominal pain and vomiting. She was seen in this emergency department yesterday as well as having been seen in the [facility] emergency department yes
[2021-05-08 13:01] VITALS: BP 116/57; PULSE 79; O2SAT 96
[2021-05-08 13:45] VITALS: BP 116/57; PULSE 79; RESP 16; TEMP 37.1; O2SAT 96
== END 2021-05-08 13:46 | disposition home or self-care (01) ==
PROVIDERS: Emergency Provider Emergency Medicine; PCP Family Medicine
DX: R10.13 Epigastric pain (principal); R11.10 Vomiting, unspecified; F41.9 Anxiety disorder, unspecified; M79.7 Fibromyalgia; E78.5 Hyperlipidemia, unspecified; Z79.899 Other long term (current) drug therapy
CPT/HCPCS: 80053; 82150; 83690; 85025; 96365; 96375; 96376; 99284; J2405

== ENCOUNTER → 2021-06-03 14:36 | Outpatient (POV) | payer BC, SELFPAY ==
[2021-06-03 14:46] VITALS: BP 153/99; PULSE 86; RESP 18; TEMP 37.2; O2SAT 99; BMI 34.9
--- NOTE | 2021-06-03 15:36 | HMH.PAINSOAP ---
[facility] Pain Management SOAP Note Subjective:: Patient is a pleasant 35-year-old female who presents today for follow-up. Patient is currently being treated for chronic pancreatitis. We last saw this patient in July 2020. Patient states that she was going to the ER about 1-2 times a month for acute on chronic pancreatitis. She has been hospitalized several times in the last year for acute pancreatitis. When we last saw this patient, we discussed with her that she could benefit significantly from intrathecal pain pump. At that point, she was a bit hesitant to move forward with this intervention. Her pain is currently being managed with oxycodone 10 mg 3 times a day that is prescribed by Dr. Escobar. Patient states that her primary care provider is slowly titrating her down because he will not continue writing this oral pain medication. She is here today because she would like to move forward with intrathecal pain pump trial. She states that she has tried several other conservative therapies such as diet modifications and oral pain medications with no lasting relief of symptoms. She rates her pain today as 7 out of 10. [facility] #[id number] with an active morphine equivalent of 45. Review of Systems: General: No recent weight changes, no fever, no sleep disturbances Respiratory: No cough, no shortness of air, no recurring pulmonary infections Cardiovascular/peripheral vascular: No chest pain, no palpitations, no edema, no shortness of breath Gastrointestinal: Abdominal pain, no new onset incontinence, normal bowel movements reported Genitourinary: No new onset incontinence Psychiatric: [Normal mood/affect] Neurological: [Denies weakness in extremities], [denies balance issues] Objective:: Physical Exam: General: Alert and oriented x3, no acute distress, pleasant and cooperative, [on room air] Lungs: Respirations even and unlabored, symmetrical chest expansion Eyes: PERRL GI: Epigastric region is tender to palpation Neurological: Speech clear, no gross sensory deficit Assessment:: Chronic pancreatitis Plan:: Patient has been dealing with chronic pancreatitis for several years now. She has gone to the ER for about 1-2 times a month and has been hospitalized several times in the last year for acute on chronic pancreatitis. She is always been given Toradol shots with some relief of symptoms. We did discuss with the patient last year that she could be a good candidate for intrathecal pain pump. She was a bit hesitant to move forward with this intervention at that time. Recently, her PCP told her that he will not be able to continue writing her oxycodone. He is slowly titrating her down. Because of this, she wants to move forward with intrathecal pain pump trial. If patient is able to be off of her oral opioids, we will consider doing an opiate pump. If not, we can always try a bupivacaine pump. Refer the patient for psychiatric evaluation for a pump trial. Follow-up after the evaluation. Patient has been instructed to contact the clinic with any concerns before the next appointment. Dr. Castellon has reviewed this note and agrees with this plan of care. This note was dictated using voice recognition software and make contain errors or omissions. [facility] History Medical History: Reports:: Anxiety, Hyperlipidemia Denies:: Cancer, Diabetes Mellitus Type 1, Diabetes Mellitus Type 2, MRSA, Seizures, Urinary Tract Infection *Have you ever received a pneumonia vaccine?: No *Have you received a flu vaccine this season?: Yes Other Medical History: Reports: Arthritis, Fibromyalgia, Thyroid Disease, Other Other Surgeries: Yes: Cholecystectomy, Dilation and Curettage. No: Amputation: No Fractures: No - *Social History Smoking Status: Current every day smoker Tobacco Type: cigarettes # Packs/Day (cigarettes): 1 Alcohol Intake: former Alcohol Intake Frequency:: a few times a month Substance Use Type: denies use *Occupational
== END ==
PROVIDERS: Visit Provider Student in an Organized Health Care Education/Training Program
DX: K86.1 Other chronic pancreatitis (principal)
CPT/HCPCS: 99212; G0463

== ENCOUNTER 2021-06-10 19:05 | Emergency (ER) | payer BC, SELFPAY ==
[2021-06-10 19:06] VITALS: BP 147/102; PULSE 83; RESP 18; TEMP 36.7; O2SAT 99; BMI 34.6
[2021-06-10 19:40] LABS: Microscopic, Urine URINE MICROSCOPIC (MICROSCOPIC)
--- NOTE | 2021-06-10 19:43 | HMH.EDGENADL ---
ED Disposition Condition on Discharge: Good - Critical Care Critical Care Time: No <ChristinaGage - Last Filed: 06/10/21 19:55> <George Mckinley - Last Filed: 06/10/21 20:21> Clinical Impression: Chronic abdominal pain Disposition: Home, Self-Care Instructions: DI for Chronic Pain -- Adult Additional Instructions: keep planned appt Referrals: Elmo Escobar MD [Primary Care Provider] - Attestation: On 06/10/21, the high probability of a clinically significant, sudden or life threatening deterioration of the following system(s) required my full and direct attention, intervention and personal management. The time I documented below is in addition to time spent performing reported procedures but includes the following listed in this critical care notation. Medical Decision Making - Medical Records Medical records reviewed: Yes: I reviewed the patient's medical records. - Ramses Inquiry Pt receiving controlled substance: Yes Ramses was queried for this patient: Yes Reason not queried -: Ramses login issues Risks and benefits of using a controlled substance: were discussed with pt by me - Reevaluation(s) Time: 19:55 <ChristinaGage - Last Filed: 06/10/21 19:55> - Lab Data Lab results reviewed: Yes: I reviewed the patient's lab results. Result diagrams: 06/10/21 19:30 06/10/21 19:30 <George Mckinley - Last Filed: 06/10/21 20:21> Vital Signs: 06/10/21 19:06 Temperature 98.1 F Temperature Source Oral Pulse Rate [Left Radial] 83 Respiratory Rate 18 Blood Pressure [Right Arm] 147/102 H Blood Pressure Mean [Right Arm] 117 Blood Pressure Source [Right Arm] Automatic Cuff Blood Pressure Position [Right Arm] Sitting 02 Sat by Pulse Oximetry 99 Oxygen Delivery Method Room Air - Lab Data Lab Results 06/10/21 19:30: WBC 6.7, RBC 4.55, Hgb 12.8, Hct 38.4, MCV 84.5, MCH 28.1, MCHC 33.2, RDW 15.9, Plt Count 330, MPV 7.7, Neut % (Auto) 64.5, Lymph % (Auto) 30.0, [place] % (Auto) 5.2, Eos % (Auto) 0.3, Baso % (Auto) 3.5 H, Neut # (Auto) 4.3, Lymph # (Auto) 2.0, [place] # (Auto) 0.4, Eos # (Auto) 0.0, Baso # (Auto) 0.2 06/10/21 19:30: Sodium 140, Potassium 3.5, Chloride 106, Carbon Dioxide 26, Anion Gap 11.5, BUN 6 L, Creatinine 0.50 L, Estimated Creat Clear 236, Estimated GFR 141, Est GFR ( Amer) 171, Glucose 116 H, Calcium 9.2, Total Bilirubin 0.5, AST 22, ALT 19, Alkaline Phosphatase 85, Total Protein 7.4, Albumin 4.5, Globulin 2.9, Albumin/Globulin Ratio 1.6, Amylase 119 H, Lipase 393 H Orders (Tests/Meds): ED MEDICATIONS Discontinued Medications Generic Name Dose Route Start Last Admin Trade Name Freq PRN Reason Stop Dose Admin Hydrocodone Bitart/Acetaminophen 2 tab 06/10/21 19:33 06/10/21 19:50 Hydrocodone/Apap 5/325 Mg Tablet PO 06/10/21 19:34 2 tab ONCE ONE Administration Promethazine HCl 25 mg 06/10/21 19:33 06/10/21 19:51 Promethazine 25mg Tablet PO 06/10/21 19:34 25 mg ONCE ONE Administration ORDERS Category Date Time Status UA [Urinalysis and Microscopic] Stat Lab 06/10/21 19:30 Received Urine , HCG Qual. Stat Lab 06/10/21 19:30 Received - Reevaluation(s) Reevaluation #1: On reevaluation, patient is feeling better. Work-up still pending. Patient was signed out to oncoming physician pending reevaluation and final disposition. (Gage Vasquez) Medical Decision Narrative: 35-year-old female presenting with some chronic abdominal discomfort. Patient is a relatively benign physical examination. No evidence of acute abdomen. Patient treated symptomatically. Work-up initiated. (Gage Vasquez) General Adult HPI - General Mode of Arrival: Ambulatory Limitations: No Limitations Description of Symptoms (Recalled from ER Triage Doc. by RN): PT WITH HX OF CHRONIC PANCREATITIS. STATES SHE HAS MD APPT WITH HER REGULAR MD TOMORROW AND IS BEING SEEN BY PAIN MANAGMENT. PT STATES SHE HAS TAKEN ALL OF HER NORMAL HOME PAIN ME
[2021-06-10 19:54] LABS: Alanine Aminotransferase 19 U/L (12-78); Albumin Level 4.5 g/dl (3.5-5.0); Albumin/Globulin Ratio 1.6 (1.1-1.8); Alkaline Phosphatase 85 U/L (38-126); Amylase 119 U/L (30-110); Anion Gap 11.5 mEq/L (5-15); Aspartate Amino Transferase 22 U/L (14-36); Bilirubin,Total 0.5 mg/dl (0.2-1.3); Blood Urea Nitrogen 6 mg/dl (7-17); Calcium 9.2 mg/dl (8.4-10.2); Carbon Dioxide 26 mmol/L (22.0-30.0); Chloride 106 mmol/L (98-107); Creatinine Clearance Estimated 236 mL/min (50-200); Estimated Glomerular Filt Rate 141 ml/min (>60); GFR (African American) 171 ML/MIN (>60); Globulin 2.9 g/dL (1.3-3.2); Glucose 116 mg/dl (74-100); Lipase 393 U/L (23-300); Potassium 3.5 mmoL/L (3.5-5.1); Sodium 140 mmol/L (136-145); Total Protein,Serum 7.4 g/dl (6.3-8.2)
[2021-06-10 20:07] LABS: Basophils # 0.2 K/mm3 (0-0.2); Basophils % 3.5 % (0.1-2.0); Eosinophils % 0.3 % (0.1-12.0); Hematocrit 38.4 % (37.0-47.0); Hemoglobin 12.8 g/dL (12.2-16.2); Mean Corpuscular HGB Conc 33.2 g/dL (31.8-35.4); Mean Corpuscular Hemoglobin 28.1 pg (27.0-31.2); Mean Corpuscular Volume 84.5 fl (81-99); Mean Platelet Volume 7.7 fl (7.4-10.4); Monocytes # 0.4 K/mm3 (0.1-1.0); Monocytes % 5.2 % (1.7-9.3); Neutrophils # 4.3 K/mm3 (1.8-7.8); Neutrophils % 64.5 % (37.0-80.0); Platelet Count 330 K/mm3 (142-424); Red Blood Count 4.55 M/mm3 (4.20-5.40); Red Cell Distribution Width 15.9 % (11.5-17.5); White Blood Count 6.7 K/mm3 (4.8-10.8)
[2021-06-10 20:38] LABS: Urine Pregnancy, HCG Qual. Negative (Negative)
[2021-06-10 20:40] VITALS: BP 134/78; PULSE 80; RESP 18; TEMP 36.7; O2SAT 99
[2021-06-10 20:40] LABS: Appearance,Urine CLEAR (Clear); Bilirubin,Urine Negative (Negative); Blood, Urine Negative (Negative); Color,Urine YELLOW (Yellow); Glucose,Urine (UA) Negative (Negative); Ketones,Urine Negative (Negative); Leukocyte Esterase,Urine Negative (Negative); Nitrate,Urine Negative (Negative); Protein,Urine Negative (Negative); Specific Gravity, Urine <= 1.005 (1.005-1.030); Urobilinogen,Urine 0.2 EU/dl (0.2)
[2021-06-10 20:57] LABS: Bacteria,Urine Trace /lpf; WBC,Urine Occasional #/hpf (0-3)
== END 2021-06-10 20:42 | disposition home or self-care (01) ==
PROVIDERS: Emergency Provider Emergency Medicine; PCP Family Medicine
DX: N39.0 Urinary tract infection, site not specified (principal); R11.0 Nausea; E78.5 Hyperlipidemia, unspecified; E07.9 Disorder of thyroid, unspecified; G89.29 Other chronic pain; M19.90 Unspecified osteoarthritis, unspecified site; M79.7 Fibromyalgia; K86.1 Other chronic pancreatitis; E66.9 Obesity, unspecified; F41.9 Anxiety disorder, unspecified; F17.210 Nicotine dependence, cigarettes, uncomplicated; Z79.899 Other long term (current) drug therapy; Z88.5 Allergy status to narcotic agent; Z88.6 Allergy status to analgesic agent; Z82.49 Family history of ischemic heart disease and other diseases of the circulatory system; Z68.34 Body mass index [BMI] 34.0-34.9, adult; Z80.9 Family history of malignant neoplasm, unspecified
CPT/HCPCS: 80053; 81001; 81025; 82150; 83690; 85025; 96372; 99283

== ENCOUNTER 2021-06-13 21:16 | Emergency (ER) | payer BC, SELFPAY ==
[2021-06-13 21:17] VITALS: BP 158/98; PULSE 95; RESP 20; TEMP 36.8; O2SAT 100; BMI 34.6
--- NOTE | 2021-06-13 21:44 | HMH.EDABDPAI ---
ED Disposition Clinical Impression: Abdominal pain, Substance use disorder Disposition: Home, Self-Care Condition on Discharge: Good Instructions: DI for Acute Abdominal Pain Additional Instructions: Your lipase is significantly improved and there is no signs that she is having an acute flare of your pancreatitis. Follow-up with primary care if your pain control is not working and to return to the ER for any new or worsening symptoms including persistent vomiting fever or other symptoms. Referrals: Elmo Escobar MD [Primary Care Provider] - Time of Disposition: 23:21 - Critical Care Critical Care Time: No Attestation: On 06/13/21, the high probability of a clinically significant, sudden or life threatening deterioration of the following system(s) required my full and direct attention, intervention and personal management. The time I documented below is in addition to time spent performing reported procedures but includes the following listed in this critical care notation. Medical Decision Making - Medical Records Medical records reviewed: Yes: I reviewed the patient's medical records. - Ramses Inquiry Pt receiving controlled substance: No Vital Signs: 06/13/21 21:17 Temperature 98.3 F Temperature Source Oral Pulse Rate [Right] 95 H Respiratory Rate 20 Blood Pressure [Right Arm] 158/98 H Blood Pressure Mean [Right Arm] 118 02 Sat by Pulse Oximetry 100 Oxygen Delivery Method Room Air - Lab Data Lab Results 06/13/21 22:33: WBC 6.1, RBC 4.26, Hgb 12.1 L, Hct 36.4 L, MCV 85.5, MCH 28.3, MCHC 33.1, RDW 15.7, Plt Count 265, MPV 7.6, Neut % (Auto) 57.2, Lymph % (Auto) 34.8, [place] % (Auto) 4.4, Eos % (Auto) 0.6, Baso % (Auto) 3.0 H, Neut # (Auto) 3.5, Lymph # (Auto) 2.1, [place] # (Auto) 0.3, Eos # (Auto) 0.0, Baso # (Auto) 0.2 06/13/21 22:33: Sodium 137, Potassium 3.6, Chloride 104, Carbon Dioxide 27, Anion Gap 9.6, BUN 13, Creatinine 0.70, Estimated Creat Clear 169, Estimated GFR 96, Est GFR ( Amer) 116, Glucose 99, Calcium 8.5, Total Bilirubin 0.4, AST 22, ALT 15, Alkaline Phosphatase 80, Total Protein 6.7, Albumin 4.1, Globulin 2.6, Albumin/Globulin Ratio 1.6, Lipase 79 Result diagrams: 06/13/21 22:33 06/13/21 22:33 Orders (Tests/Meds): ED MEDICATIONS Discontinued Medications Generic Name Dose Route Start Last Admin Trade Name Karen PRN Reason Stop Dose Admin Hydromorphone HCl 0.5 mg 06/13/21 21:52 06/13/21 21:59 Hydromorphone 2mg/Ml Syringe IM 06/13/21 21:53 0.5 mg ONCE ONE Administration Promethazine HCl 12.5 mg 06/13/21 21:53 06/13/21 22:01 Promethazine Hcl 12.5mg Tablet PO 06/13/21 21:54 12.5 mg ONCE ONE Administration Medical Decision Narrative: 35-year-old female who presents with chronic pancreatitis she is well-known to the department and presents frequently for pain control. She has a prescription for Percocet states it is not working. Agreed to give 1 dose of pain medicine pending her lipase level to evaluate for acute on chronic pancreatitis. It was earlier elevated this week just over 300 but not clinically pancreatitis. CBC and CMP are nonactionable today lipase has improved significantly over the course of this week. She is having no other symptoms at this time other than pain. She received IM 0.5 mg Dilaudid and 12.5 of Phenergan p.o. She will be discharged home in good condition with follow-up with primary care. Abdominal Pain HPI - General Chief Complaint: Abdominal Pain Stated Complaint: stomach pain Time Seen by Provider: 06/13/21 21:44 Mode of Arrival: Family Vehicle Limitations: No Limitations Description of Symptoms (Recalled from ER Triage Doc. by RN): Pt c/o LUQ ABD pain with n/v that began on Thursday (06/09). She was seen here in ER on Thursday (06/10) given and pain shot and d/c home. Saw here PCP Thursday and she was given Percocet 10s for pain control. Pt states that has not helped her pain at all and she has just stayed on the bathroo
[2021-06-13 22:44] LABS: Basophils # 0.2 K/mm3 (0-0.2); Eosinophils % 0.6 % (0.1-12.0); Hematocrit 36.4 % (37.0-47.0); Hemoglobin 12.1 g/dL (12.2-16.2); Lymphocytes # 2.1 K/mm3 (0.7-4.5); Lymphocytes % 34.8 % (10-50); Mean Corpuscular HGB Conc 33.1 g/dL (31.8-35.4); Mean Corpuscular Hemoglobin 28.3 pg (27.0-31.2); Mean Corpuscular Volume 85.5 fl (81-99); Mean Platelet Volume 7.6 fl (7.4-10.4); Monocytes # 0.3 K/mm3 (0.1-1.0); Monocytes % 4.4 % (1.7-9.3); Neutrophils # 3.5 K/mm3 (1.8-7.8); Neutrophils % 57.2 % (37.0-80.0); Platelet Count 265 K/mm3 (142-424); Red Blood Count 4.26 M/mm3 (4.20-5.40); Red Cell Distribution Width 15.7 % (11.5-17.5); White Blood Count 6.1 K/mm3 (4.8-10.8)
[2021-06-13 23:06] LABS: Chloride 104 mmol/L (98-107); Potassium 3.6 mmoL/L (3.5-5.1); Sodium 137 mmol/L (136-145)
[2021-06-13 23:08] LABS: Blood Urea Nitrogen 13 mg/dl (7-17)
[2021-06-13 23:09] LABS: Alanine Aminotransferase 15 U/L (12-78); Albumin Level 4.1 g/dl (3.5-5.0); Albumin/Globulin Ratio 1.6 (1.1-1.8); Alkaline Phosphatase 80 U/L (38-126); Anion Gap 9.6 mEq/L (5-15); Aspartate Amino Transferase 22 U/L (14-36); Bilirubin,Total 0.4 mg/dl (0.2-1.3); Calcium 8.5 mg/dl (8.4-10.2); Carbon Dioxide 27 mmol/L (22.0-30.0); Creatinine Clearance Estimated 169 mL/min (50-200); Estimated Glomerular Filt Rate 96 ml/min (>60); GFR (African American) 116 ML/MIN (>60); Globulin 2.6 g/dL (1.3-3.2); Glucose 99 mg/dl (74-100); Lipase 79 U/L (23-300); Total Protein,Serum 6.7 g/dl (6.3-8.2)
[2021-06-13 23:26] VITALS: BP 134/75; PULSE 90; RESP 18; TEMP 36.8; O2SAT 99
== END 2021-06-13 23:26 | disposition home or self-care (01) ==
PROVIDERS: Emergency Provider Student in an Organized Health Care Education/Training Program; PCP Family Medicine
DX: N39.0 Urinary tract infection, site not specified (principal); K86.1 Other chronic pancreatitis; E78.5 Hyperlipidemia, unspecified; E07.9 Disorder of thyroid, unspecified; M19.90 Unspecified osteoarthritis, unspecified site; M79.7 Fibromyalgia; E66.9 Obesity, unspecified; F17.210 Nicotine dependence, cigarettes, uncomplicated; Z79.899 Other long term (current) drug therapy; Z88.5 Allergy status to narcotic agent; Z88.6 Allergy status to analgesic agent; Z68.34 Body mass index [BMI] 34.0-34.9, adult; Z82.49 Family history of ischemic heart disease and other diseases of the circulatory system; Z80.9 Family history of malignant neoplasm, unspecified
CPT/HCPCS: 80053; 83690; 85025; 96372; 99284

== ENCOUNTER 2021-06-18 01:33 | Emergency (ER) | payer BC, SELFPAY ==
[2021-06-18 01:35] VITALS: BP 144/95; PULSE 98; RESP 16; TEMP 36.6; O2SAT 97; BMI 36.8
[2021-06-18 01:42] VITALS: BMI 36.8
[2021-06-18 01:49] LABS: Microscopic, Urine URINE MICROSCOPIC (MICROSCOPIC)
--- NOTE | 2021-06-18 02:00 | HMH.EDNVD ---
ED Disposition Clinical Impression: Abdominal pain Qualifiers: Abdominal location: generalized Qualified Code(s): R10.84 - Generalized abdominal pain Disposition: Home, Self-Care Condition on Discharge: Good Instructions: DI for Nausea -- Adult Additional Instructions: call pcp for follow up Referrals: Elmo Escobar MD [Primary Care Provider] - - Critical Care Critical Care Time: No Attestation: On 06/18/21, the high probability of a clinically significant, sudden or life threatening deterioration of the following system(s) required my full and direct attention, intervention and personal management. The time I documented below is in addition to time spent performing reported procedures but includes the following listed in this critical care notation. Medical Decision Making - Medical Records Medical records reviewed: Yes: I reviewed the patient's medical records. - Ramses Inquiry Pt receiving controlled substance: No Vital Signs: 06/18/21 01:35 06/18/21 02:30 Temperature 97.9 F Temperature Source Oral Pulse Rate 84 Pulse Rate [Right] 98 H Respiratory Rate 16 Blood Pressure 138/96 H Blood Pressure [Right Arm] 144/95 H Blood Pressure Mean [Right Arm] 111 02 Sat by Pulse Oximetry 97 96 Oxygen Delivery Method Room Air - Lab Data Lab results reviewed: Yes: I reviewed the patient's lab results. Lab Results 06/18/21 01:39: Urine Color Yellow, Urine Appearance Sl cloudy, Urine pH 6.0, Ur Specific [place] 1.010, Urine Protein Negative, Urine Glucose (UA) Negative, Urine Ketones Negative, Urine Blood Negative, Urine Nitrate Negative, Urine Bilirubin Negative, Urine Urobilinogen 0.2, Ur Leukocyte Esterase Trace, Urine WBC Occasional, Urine Bacteria 1+, Urine Mucus Trace 06/18/21 01:58: WBC 6.4, RBC 3.79 L, Hgb 10.7 L, Hct 32.9 L, MCV 86.8, MCH 28.3, MCHC 32.6, RDW 15.9, Plt Count 219, MPV 8.4, Neut % (Auto) 56.7, Lymph % (Auto) 35.3, [place] % (Auto) 4.9, Eos % (Auto) 0.1, Baso % (Auto) 2.9 H, Neut # (Auto) 3.7, Lymph # (Auto) 2.3, [place] # (Auto) 0.3, Eos # (Auto) 0.0, Baso # (Auto) 0.2 06/18/21 01:58: Sodium 139, Potassium 3.8, Chloride 110 H, Carbon Dioxide 24, Anion Gap 8.8, BUN 8, Creatinine 0.50 L, Estimated Creat Clear 236, Estimated GFR 141, Est GFR ( Amer) 171, Glucose 102 H, Calcium 8.1 L, Total Bilirubin 0.2, AST 19, ALT 18, Alkaline Phosphatase 69, Total Protein 5.8 L, Albumin 3.5, Globulin 2.3, Albumin/Globulin Ratio 1.5, Amylase 75, Lipase 130 Result diagrams: 06/18/21 01:58 06/18/21 01:58 Medical Decision Narrative: stable exam and labs with hx of chronic pain Nausea/Vomiting/Diarrhea HPI - General Chief complaint: Nausea/Vomiting/Diarrhea Stated complaint: Abdominal Pain with vomiting Time Seen by Provider: 06/18/21 02:00 Mode of Arrival: Ambulatory Source of Information: Patient, Medical Record Limitations: No Limitations Description of Symptoms (Recalled from ER Triage Doc. by RN): pt c/o n/v that started @ midnight - History of Present Illness HPI Narrative: acute onset of ongoing abd pain MD complaint: nausea, abdominal pain Onset (ago): hour(s) Associated Abdominal Pain: Yes Location of pain: diffuse Severity: moderate Quality: cramping Consistency: intermittent Context: other (chronic) Associated symptoms: denies other symptoms - Related Data Home Medications Medication Instructions Recorded Confirmed diclofenac sodium 1 % topical gel 2 g TOPICAL QID g 11/26/20 06/13/21 hydroxyzine pamoate 50 mg capsule 50 mg PO DAILY cap 05/28/21 06/13/21 polyethylene glycol 3350 17 17 g PO DAILY g 05/28/21 06/13/21 gram/dose oral powder sennosides 8.6 mg-docusate sodium 1 tab PO NEEDED PRN 05/28/21 06/13/21 50 mg tablet Lidocaine [Lidocaine 5% patch] 1 patch TOPICAL DAILY 06/03/21 06/13/21 Previous Rx's Medication Instructions Recorded ondansetron 8 mg disintegrating 8 mg PO Q8H PRN #90 tab 05/16/21 tablet pregabalin 300 mg capsule 300 mg PO BI
[2021-06-18 02:04] LABS: Basophils # 0.2 K/mm3 (0-0.2); Basophils % 2.9 % (0.1-2.0); Eosinophils % 0.1 % (0.1-12.0); Hematocrit 32.9 % (37.0-47.0); Hemoglobin 10.7 g/dL (12.2-16.2); Lymphocytes # 2.3 K/mm3 (0.7-4.5); Lymphocytes % 35.3 % (10-50); Mean Corpuscular HGB Conc 32.6 g/dL (31.8-35.4); Mean Corpuscular Hemoglobin 28.3 pg (27.0-31.2); Mean Corpuscular Volume 86.8 fl (81-99); Mean Platelet Volume 8.4 fl (7.4-10.4); Monocytes # 0.3 K/mm3 (0.1-1.0); Monocytes % 4.9 % (1.7-9.3); Neutrophils # 3.7 K/mm3 (1.8-7.8); Neutrophils % 56.7 % (37.0-80.0); Platelet Count 219 K/mm3 (142-424); Red Blood Count 3.79 M/mm3 (4.20-5.40); Red Cell Distribution Width 15.9 % (11.5-17.5); White Blood Count 6.4 K/mm3 (4.8-10.8)
[2021-06-18 02:04] LABS: Appearance,Urine SL CLOUDY (Clear); Bilirubin,Urine Negative (Negative); Blood, Urine Negative (Negative); Color,Urine YELLOW (Yellow); Glucose,Urine (UA) Negative (Negative); Ketones,Urine Negative (Negative); Leukocyte Esterase,Urine TRACE (Negative); Nitrate,Urine Negative (Negative); Protein,Urine Negative (Negative); Urobilinogen,Urine 0.2 EU/dl (0.2)
[2021-06-18 02:15] LABS: Alanine Aminotransferase 18 U/L (12-78); Albumin Level 3.5 g/dl (3.5-5.0); Albumin/Globulin Ratio 1.5 (1.1-1.8); Alkaline Phosphatase 69 U/L (38-126); Amylase 75 U/L (30-110); Anion Gap 8.8 mEq/L (5-15); Aspartate Amino Transferase 19 U/L (14-36); Bilirubin,Total 0.2 mg/dl (0.2-1.3); Blood Urea Nitrogen 8 mg/dl (7-17); Calcium 8.1 mg/dl (8.4-10.2); Carbon Dioxide 24 mmol/L (22.0-30.0); Chloride 110 mmol/L (98-107); Creatinine Clearance Estimated 236 mL/min (50-200); Estimated Glomerular Filt Rate 141 ml/min (>60); GFR (African American) 171 ML/MIN (>60); Globulin 2.3 g/dL (1.3-3.2); Glucose 102 mg/dl (74-100); Lipase 130 U/L (23-300); Potassium 3.8 mmoL/L (3.5-5.1); Sodium 139 mmol/L (136-145); Total Protein,Serum 5.8 g/dl (6.3-8.2)
[2021-06-18 02:18] LABS: Bacteria,Urine 1+ /lpf; Mucus,Urine Trace /lpf; WBC,Urine Occasional #/hpf (0-3)
[2021-06-18 02:30] VITALS: BP 138/96; PULSE 84; O2SAT 96
[2021-06-18 05:19] VITALS: BP 138/96; PULSE 84; RESP 18; TEMP 36.8; O2SAT 99
== END 2021-06-18 05:21 | disposition home or self-care (01) ==
PROVIDERS: Emergency Provider Emergency Medicine; PCP Family Medicine
DX: R10.84 Generalized abdominal pain (principal); R11.2 Nausea with vomiting, unspecified; R19.7 Diarrhea, unspecified; E78.5 Hyperlipidemia, unspecified; N39.0 Urinary tract infection, site not specified; M79.7 Fibromyalgia; M19.90 Unspecified osteoarthritis, unspecified site; F41.9 Anxiety disorder, unspecified; E07.9 Disorder of thyroid, unspecified; K85.90 Acute pancreatitis without necrosis or infection, unspecified; F17.210 Nicotine dependence, cigarettes, uncomplicated; Z79.899 Other long term (current) drug therapy; Z88.1 Allergy status to other antibiotic agents; Z88.5 Allergy status to narcotic agent; Z82.49 Family history of ischemic heart disease and other diseases of the circulatory system; Z80.9 Family history of malignant neoplasm, unspecified
CPT/HCPCS: 36415; 80053; 81001; 82150; 83690; 85025; 96372; 99284

== ENCOUNTER 2021-06-22 21:23 | Emergency (ER) | payer BC, SELFPAY ==
[2021-06-22 21:24] VITALS: BP 133/82; PULSE 100; RESP 20; TEMP 36.9; O2SAT 99; BMI 34.6
[2021-06-22 21:26] VITALS: BMI 34.6
--- NOTE | 2021-06-22 21:55 | HMH.EDNVD ---
ED Disposition Clinical Impression: Abdominal pain Qualifiers: Abdominal location: generalized Qualified Code(s): R10.84 - Generalized abdominal pain Disposition: Home, Self-Care Condition on Discharge: Good Instructions: DI for Nausea -- Adult, DI for Chronic Pain -- Adult Additional Instructions: call pcp for follow up Referrals: Elmo Escobar MD [Primary Care Provider] - - Critical Care Critical Care Time: No Attestation: On 06/22/21, the high probability of a clinically significant, sudden or life threatening deterioration of the following system(s) required my full and direct attention, intervention and personal management. The time I documented below is in addition to time spent performing reported procedures but includes the following listed in this critical care notation. Medical Decision Making - Medical Records Medical records reviewed: Yes: I reviewed the patient's medical records. - Ramses Inquiry Pt receiving controlled substance: No Vital Signs: 06/22/21 21:24 06/22/21 22:00 Temperature 98.4 F Temperature Source Oral Pulse Rate 97 H Pulse Rate [Right] 100 H Respiratory Rate 20 Blood Pressure 139/91 H Blood Pressure [Right Arm] 133/82 Blood Pressure Mean [Right Arm] 99 02 Sat by Pulse Oximetry 99 97 Oxygen Delivery Method Room Air - Lab Data Lab results reviewed: Yes: I reviewed the patient's lab results. Lab Results 06/22/21 21:35: WBC 6.7, RBC 4.26, Hgb 12.3, Hct 36.5 L, MCV 85.6, MCH 28.8, MCHC 33.7, RDW 15.5, Plt Count 268, MPV 8.1, Neut % (Auto) 55.7, Lymph % (Auto) 35.3, [place] % (Auto) 6.4, Eos % (Auto) 0.2, Baso % (Auto) 2.3 H, Neut # (Auto) 3.7, Lymph # (Auto) 2.4, [place] # (Auto) 0.4, Eos # (Auto) 0.0, Baso # (Auto) 0.2 06/22/21 21:35: Sodium 139, Potassium 4.3, Chloride 103, Carbon Dioxide 29, Anion Gap 11.3, BUN 8, Creatinine 0.50 L, Estimated Creat Clear 236, Estimated GFR 141, Est GFR ( Amer) 171, Glucose 109 H, Calcium 9.2, Total Bilirubin 0.4, AST 135 H, ALT 188 H, Alkaline Phosphatase 134 H, Total Protein 6.7, Albumin 3.9, Globulin 2.8, Albumin/Globulin Ratio 1.4, Amylase 73, Lipase 88 Result diagrams: 06/22/21 21:35 06/22/21 21:35 Medical Decision Narrative: acute excerbation of ongoing abd pain with grossly stable labs and exam and vital signs stable Nausea/Vomiting/Diarrhea HPI - General Chief complaint: Nausea/Vomiting/Diarrhea Stated complaint: Severe Abdominal Pain Time Seen by Provider: 06/22/21 21:55 Mode of Arrival: Ambulatory Source of Information: Patient, Parent(s), Medical Record Limitations: No Limitations Description of Symptoms (Recalled from ER Triage Doc. by RN): pt c/o n/v and unable to keep anything down for a couple of days. - History of Present Illness HPI Narrative: pt with acute exacerbation of chronic abd pain with nausea - no fever MD complaint: nausea, vomiting, abdominal pain Onset (ago): hour(s) Associated Abdominal Pain: Yes Location of pain: diffuse Associated symptoms: denies other symptoms - Related Data Home Medications Medication Instructions Recorded Confirmed diclofenac sodium 1 % topical gel 2 g TOPICAL QID g 11/26/20 06/22/21 hydroxyzine pamoate 50 mg capsule 50 mg PO DAILY cap 05/28/21 06/22/21 polyethylene glycol 3350 17 17 g PO DAILY g 05/28/21 06/22/21 gram/dose oral powder sennosides 8.6 mg-docusate sodium 1 tab PO NEEDED PRN 05/28/21 06/22/21 50 mg tablet Lidocaine [Lidocaine 5% patch] 1 patch TOPICAL DAILY 06/03/21 06/22/21 ondansetron 4 mg disintegrating 4 mg PO Q8HP PRN tab 06/18/21 06/22/21 tablet Lurasidone HCl [Latuda] 40 mg PO DAILY 06/22/21 06/22/21 Venlafaxine HCl [Effexor XR 150mg] 150 mg PO DAILY 06/22/21 06/22/21 Previous Rx's Medication Instructions Recorded lorazepam 0.5 mg tablet 0.5 mg PO DAILY PRN #7 tab 06/18/21 pregabalin 300 mg capsule 300 mg PO BID PRN #60 cap 06/21/21 Allergies Allergy/AdvReac Type Severity Reaction Status Date / Time
[2021-06-22 22:00] VITALS: BP 139/91; PULSE 97; O2SAT 97
[2021-06-22 22:03] LABS: Alanine Aminotransferase 188 U/L (12-78); Albumin Level 3.9 g/dl (3.5-5.0); Albumin/Globulin Ratio 1.4 (1.1-1.8); Alkaline Phosphatase 134 U/L (38-126); Amylase 73 U/L (30-110); Anion Gap 11.3 mEq/L (5-15); Aspartate Amino Transferase 135 U/L (14-36); Bilirubin,Total 0.4 mg/dl (0.2-1.3); Blood Urea Nitrogen 8 mg/dl (7-17); Calcium 9.2 mg/dl (8.4-10.2); Carbon Dioxide 29 mmol/L (22.0-30.0); Chloride 103 mmol/L (98-107); Creatinine Clearance Estimated 236 mL/min (50-200); Estimated Glomerular Filt Rate 141 ml/min (>60); GFR (African American) 171 ML/MIN (>60); Globulin 2.8 g/dL (1.3-3.2); Glucose 109 mg/dl (74-100); Lipase 88 U/L (23-300); Potassium 4.3 mmoL/L (3.5-5.1); Sodium 139 mmol/L (136-145); Total Protein,Serum 6.7 g/dl (6.3-8.2)
[2021-06-22 22:09] LABS: Basophils # 0.2 K/mm3 (0-0.2); Basophils % 2.3 % (0.1-2.0); Eosinophils % 0.2 % (0.1-12.0); Hematocrit 36.5 % (37.0-47.0); Hemoglobin 12.3 g/dL (12.2-16.2); Lymphocytes # 2.4 K/mm3 (0.7-4.5); Lymphocytes % 35.3 % (10-50); Mean Corpuscular HGB Conc 33.7 g/dL (31.8-35.4); Mean Corpuscular Hemoglobin 28.8 pg (27.0-31.2); Mean Corpuscular Volume 85.6 fl (81-99); Mean Platelet Volume 8.1 fl (7.4-10.4); Monocytes # 0.4 K/mm3 (0.1-1.0); Monocytes % 6.4 % (1.7-9.3); Neutrophils # 3.7 K/mm3 (1.8-7.8); Neutrophils % 55.7 % (37.0-80.0); Platelet Count 268 K/mm3 (142-424); Red Blood Count 4.26 M/mm3 (4.20-5.40); Red Cell Distribution Width 15.5 % (11.5-17.5); White Blood Count 6.7 K/mm3 (4.8-10.8)
[2021-06-22 22:48] VITALS: BP 139/91; PULSE 97; RESP 20; TEMP 36.9; O2SAT 97
== END 2021-06-22 22:49 | disposition home or self-care (01) ==
PROVIDERS: Emergency Provider Emergency Medicine; PCP Family Medicine
DX: N39.0 Urinary tract infection, site not specified (principal); R11.2 Nausea with vomiting, unspecified; R19.7 Diarrhea, unspecified; E78.5 Hyperlipidemia, unspecified; E07.9 Disorder of thyroid, unspecified; K85.90 Acute pancreatitis without necrosis or infection, unspecified; G89.29 Other chronic pain; M79.7 Fibromyalgia; E66.9 Obesity, unspecified; F41.9 Anxiety disorder, unspecified; Z79.899 Other long term (current) drug therapy; Z88.5 Allergy status to narcotic agent; Z88.6 Allergy status to analgesic agent; Z68.34 Body mass index [BMI] 34.0-34.9, adult; Z82.49 Family history of ischemic heart disease and other diseases of the circulatory system; Z80.9 Family history of malignant neoplasm, unspecified
CPT/HCPCS: 36415; 80053; 82150; 83690; 85025; 96372; 99284

== ENCOUNTER 2021-06-27 21:02 | Emergency (ER) | payer BC, SELFPAY ==
[2021-06-27 21:04] VITALS: BP 144/84; PULSE 96; RESP 16; TEMP 36.6; O2SAT 99; BMI 31.6
[2021-06-27 21:29] VITALS: BMI 34.6
[2021-06-27 21:50] LABS: Microscopic, Urine URINE MICROSCOPIC (MICROSCOPIC)
[2021-06-27 22:07] LABS: Basophils # 0.1 K/mm3 (0-0.2); Basophils % 0.7 % (0.1-2.0); Eosinophils % 0.1 % (0.1-12.0); Hematocrit 37.6 % (37.0-47.0); Hemoglobin 12.3 g/dL (12.2-16.2); Lymphocytes # 2.2 K/mm3 (0.7-4.5); Lymphocytes % 25.7 % (10-50); Mean Corpuscular HGB Conc 32.9 g/dL (31.8-35.4); Mean Corpuscular Hemoglobin 27.3 pg (27.0-31.2); Mean Platelet Volume 7.5 fl (7.4-10.4); Monocytes # 0.4 K/mm3 (0.1-1.0); Monocytes % 4.2 % (1.7-9.3); Neutrophils # 5.9 K/mm3 (1.8-7.8); Neutrophils % 69.4 % (37.0-80.0); Platelet Count 373 K/mm3 (142-424); Red Blood Count 4.53 M/mm3 (4.20-5.40); Red Cell Distribution Width 14.6 % (11.5-17.5); White Blood Count 8.4 K/mm3 (4.8-10.8)
[2021-06-27 22:08] LABS: Appearance,Urine CLEAR (Clear); Bilirubin,Urine Negative (Negative); Blood, Urine Negative (Negative); Color,Urine YELLOW (Yellow); Glucose,Urine (UA) Negative (Negative); Ketones,Urine Negative (Negative); Leukocyte Esterase,Urine Negative (Negative); Nitrate,Urine Negative (Negative); Protein,Urine Negative (Negative); Specific Gravity, Urine >= 1.030 (1.005-1.030); Urobilinogen,Urine 0.2 EU/dl (0.2)
[2021-06-27 22:09] LABS: Chloride 102 mmol/L (98-107); Potassium 4.3 mmoL/L (3.5-5.1); Sodium 135 mmol/L (136-145)
[2021-06-27 22:12] LABS: Alanine Aminotransferase 53 U/L (12-78); Albumin Level 4.2 g/dl (3.5-5.0); Albumin/Globulin Ratio 1.4 (1.1-1.8); Alkaline Phosphatase 119 U/L (38-126); Amylase 89 U/L (30-110); Anion Gap 14.3 mEq/L (5-15); Aspartate Amino Transferase 31 U/L (14-36); Bilirubin,Total 0.3 mg/dl (0.2-1.3); Blood Urea Nitrogen 12 mg/dl (7-17); Calcium 9.6 mg/dl (8.4-10.2); Carbon Dioxide 23 mmol/L (22.0-30.0); Creatinine Clearance Estimated 236 mL/min (50-200); Estimated Glomerular Filt Rate 141 ml/min (>60); GFR (African American) 171 ML/MIN (>60); Globulin 3.1 g/dL (1.3-3.2); Glucose 110 mg/dl (74-100); Lipase 87 U/L (23-300); Total Protein,Serum 7.3 g/dl (6.3-8.2)
[2021-06-27 22:20] LABS: Benzodiazepines Screen,Urine Negative ng/ml (<200)
[2021-06-27 22:21] LABS: Amphetamine/Metha Screen,Urine Negative ng/ml (<1000); Barbiturates Screen,Urine Negative ng/ml (<200)
[2021-06-27 22:22] LABS: Cannabinoid Screen,Urine Negative ng/ml (<50); Cocaine Screen,Urine Negative ng/ml (<300)
[2021-06-27 22:23] LABS: Methadone Screen,Urine Negative ng/ml (<300)
[2021-06-27 22:24] LABS: Opiate Screen,Urine Positive ng/ml (<300); Phencyclidine Screen,Urine Negative ng/ml (<25)
--- NOTE | 2021-06-27 22:32 | HMH.EDNVD ---
ED Disposition Clinical Impression: Abdominal pain Qualifiers: Abdominal location: generalized Qualified Code(s): R10.84 - Generalized abdominal pain Disposition: Home, Self-Care Condition on Discharge: Good Instructions: DI for Acute Abdominal Pain Additional Instructions: call pcp for follow up Referrals: Elmo Escobar MD [Primary Care Provider] - - Critical Care Critical Care Time: No Attestation: On 06/27/21, the high probability of a clinically significant, sudden or life threatening deterioration of the following system(s) required my full and direct attention, intervention and personal management. The time I documented below is in addition to time spent performing reported procedures but includes the following listed in this critical care notation. Medical Decision Making - Medical Records Medical records reviewed: Yes: I reviewed the patient's medical records. - Ramses Inquiry Pt receiving controlled substance: No Vital Signs: 06/27/21 21:04 Temperature 97.8 F Temperature Source Oral Pulse Rate [Right] 96 H Respiratory Rate 16 Blood Pressure [Right Arm] 144/84 H Blood Pressure Mean [Right Arm] 104 02 Sat by Pulse Oximetry 99 - Lab Data Lab results reviewed: Yes: I reviewed the patient's lab results. Lab Results 06/27/21 21:30: Urine Color Yellow, Urine Appearance Clear, Urine pH 6.0, Ur Specific [place] >= 1.030, Urine Protein Negative, Urine Glucose (UA) Negative, Urine Ketones Negative, Urine Blood Negative, Urine Nitrate Negative, Urine Bilirubin Negative, Urine Urobilinogen 0.2, Ur Leukocyte Esterase Negative 06/27/21 21:30: Urine Opiates Screen Positive H, Urine Methadone Screen Negative, Ur Barbituates Screen Negative, Ur Phencyclidine Scrn Negative, Ur Amphetamines Screen Negative, U Benzodiazepines Scrn Negative, Urine Cocaine Screen Negative, U Marijuana (THC) Screen Negative 06/27/21 21:49: WBC 8.4, RBC 4.53, Hgb 12.3, Hct 37.6, MCV 83.0, MCH 27.3, MCHC 32.9, RDW 14.6, Plt Count 373, MPV 7.5, Neut % (Auto) 69.4, Lymph % (Auto) 25.7, [place] % (Auto) 4.2, Eos % (Auto) 0.1, Baso % (Auto) 0.7, Neut # (Auto) 5.9, Lymph # (Auto) 2.2, [place] # (Auto) 0.4, Eos # (Auto) 0.0, Baso # (Auto) 0.1 06/27/21 21:49: Sodium 135 L, Potassium 4.3, Chloride 102, Carbon Dioxide 23, Anion Gap 14.3, BUN 12, Creatinine 0.50 L, Estimated Creat Clear 236, Estimated GFR 141, Est GFR ( Amer) 171, Glucose 110 H, Calcium 9.6, Total Bilirubin 0.3, AST 31, ALT 53, Alkaline Phosphatase 119, Total Protein 7.3, Albumin 4.2, Globulin 3.1, Albumin/Globulin Ratio 1.4, Amylase 89, Lipase 87 Result diagrams: 06/27/21 21:49 06/27/21 21:49 Orders (Tests/Meds): ORDERS Category Date Time Status Urinalysis and Microscopic Stat Lab 06/27/21 21:30 Results Medical Decision Narrative: acute exacerbation of chronic abd pain with stable labs and xray Nausea/Vomiting/Diarrhea HPI - General Chief complaint: Abdominal Pain Stated complaint: ABD PAIN VOMITING Time Seen by Provider: 06/27/21 22:32 Mode of Arrival: Ambulatory Source of Information: Patient, Medical Record Limitations: No Limitations Description of Symptoms (Recalled from ER Triage Doc. by RN): pt c/o n/v and RUQ that radiating toward the middle of ABd - History of Present Illness HPI Narrative: acute exacerbation of ongoing abd pain w/o fever MD complaint: nausea, abdominal pain Onset (ago): hour(s) Associated Abdominal Pain: Yes Location of pain: diffuse Severity: moderate Associated symptoms: denies other symptoms - Related Data Home Medications Medication Instructions Recorded Confirmed diclofenac sodium 1 % topical gel 2 g TOPICAL QID g 11/26/20 06/27/21 hydroxyzine pamoate 50 mg capsule 50 mg PO DAILY cap 05/28/21 06/27/21 polyethylene glycol 3350 17 17 g PO DAILY g 05/28/21 06/27/21 gram/dose oral powder sennosides 8.6 mg-docusate sodium 1 tab PO NEEDED PRN 05/28/21 06/27/21 50 mg tablet Lidocaine [Lidocaine 5%
[2021-06-27 22:41] LABS: Bacteria,Urine 1+ /lpf; Mucus,Urine 1+ /lpf
[2021-06-27 22:43] VITALS: BP 134/75; PULSE 90; RESP 16; TEMP 36.6; O2SAT 99
== END 2021-06-27 22:43 | disposition home or self-care (01) ==
PROVIDERS: Emergency Provider Emergency Medicine; PCP Family Medicine
DX: R10.84 Generalized abdominal pain (principal); E78.5 Hyperlipidemia, unspecified; F41.9 Anxiety disorder, unspecified; M79.7 Fibromyalgia; F17.210 Nicotine dependence, cigarettes, uncomplicated; Z79.899 Other long term (current) drug therapy
CPT/HCPCS: 36415; 80053; 80305; 81001; 82150; 83690; 85025; 96372; 99283

== ENCOUNTER 2021-07-01 18:59 | Emergency (ER) | payer BC, SELFPAY ==
[2021-07-01 19:00] VITALS: BP 159/100; PULSE 102; RESP 16; TEMP 36.7; O2SAT 96; BMI 34.6
[2021-07-01 19:08] VITALS: BMI 34.6
[2021-07-01 19:12] LABS: Microscopic, Urine URINE MICROSCOPIC (MICROSCOPIC)
[2021-07-01 19:17] LABS: Appearance,Urine CLEAR (Clear); Bilirubin,Urine Negative (Negative); Blood, Urine Negative (Negative); Color,Urine YELLOW (Yellow); Glucose,Urine (UA) Negative (Negative); Ketones,Urine Negative (Negative); Leukocyte Esterase,Urine Negative (Negative); Nitrate,Urine Negative (Negative); Protein,Urine Negative (Negative); Specific Gravity, Urine >= 1.030 (1.005-1.030); Urobilinogen,Urine 0.2 EU/dl (0.2)
[2021-07-01 19:29] LABS: Amphetamine/Metha Screen,Urine Negative ng/ml (<1000); Barbiturates Screen,Urine Negative ng/ml (<200)
[2021-07-01 19:30] LABS: Benzodiazepines Screen,Urine Negative ng/ml (<200)
[2021-07-01 19:31] LABS: Cannabinoid Screen,Urine Negative ng/ml (<50); Cocaine Screen,Urine Negative ng/ml (<300)
[2021-07-01 19:32] LABS: Methadone Screen,Urine Negative ng/ml (<300)
[2021-07-01 19:33] LABS: Opiate Screen,Urine Negative ng/ml (<300); Phencyclidine Screen,Urine Negative ng/ml (<25)
[2021-07-01 20:11] LABS: Alanine Aminotransferase 38 U/L (12-78); Albumin Level 4.2 g/dl (3.5-5.0); Albumin/Globulin Ratio 1.6 (1.1-1.8); Alkaline Phosphatase 106 U/L (38-126); Amylase 99 U/L (30-110); Anion Gap 11.5 mEq/L (5-15); Aspartate Amino Transferase 33 U/L (14-36); Bilirubin,Total 0.5 mg/dl (0.2-1.3); Blood Urea Nitrogen 10 mg/dl (7-17); Calcium 9.2 mg/dl (8.4-10.2); Carbon Dioxide 24 mmol/L (22.0-30.0); Chloride 105 mmol/L (98-107); Creatinine Clearance Estimated 236 mL/min (50-200); Estimated Glomerular Filt Rate 141 ml/min (>60); GFR (African American) 171 ML/MIN (>60); Globulin 2.7 g/dL (1.3-3.2); Glucose 131 mg/dl (74-100); Lipase 304 U/L (23-300); Potassium 3.5 mmoL/L (3.5-5.1); Sodium 137 mmol/L (136-145); Total Protein,Serum 6.9 g/dl (6.3-8.2)
[2021-07-01 20:17] LABS: Bacteria,Urine Trace /lpf; Squamous Epithelial Cell,Urine Occasional #/hpf (0-5)
[2021-07-01 20:41] LABS: Basophils # 0.2 K/mm3 (0-0.2); Basophils % 2.1 % (0.1-2.0); Eosinophils % 0.1 % (0.1-12.0); Hematocrit 37.5 % (37.0-47.0); Hemoglobin 12.7 g/dL (12.2-16.2); Lymphocytes # 2.3 K/mm3 (0.7-4.5); Lymphocytes % 26.6 % (10-50); Mean Corpuscular HGB Conc 33.8 g/dL (31.8-35.4); Mean Corpuscular Hemoglobin 28.4 pg (27.0-31.2); Mean Corpuscular Volume 83.8 fl (81-99); Mean Platelet Volume 7.7 fl (7.4-10.4); Monocytes # 0.3 K/mm3 (0.1-1.0); Monocytes % 3.3 % (1.7-9.3); Neutrophils # 5.9 K/mm3 (1.8-7.8); Platelet Count 348 K/mm3 (142-424); Red Blood Count 4.47 M/mm3 (4.20-5.40); Red Cell Distribution Width 15.4 % (11.5-17.5); White Blood Count 8.7 K/mm3 (4.8-10.8)
--- NOTE | 2021-07-01 21:14 | HMH.EDNVD ---
ED Disposition Clinical Impression: Abdominal pain Qualifiers: Abdominal location: generalized Qualified Code(s): R10.84 - Generalized abdominal pain Disposition: Home, Self-Care Condition on Discharge: Good Instructions: DI for Acute Abdominal Pain Additional Instructions: fluids and see pcp for follow up Referrals: Elmo Escobar MD [Primary Care Provider] - - Critical Care Critical Care Time: No Attestation: On 07/01/21, the high probability of a clinically significant, sudden or life threatening deterioration of the following system(s) required my full and direct attention, intervention and personal management. The time I documented below is in addition to time spent performing reported procedures but includes the following listed in this critical care notation. Medical Decision Making - Medical Records Medical records reviewed: Yes: I reviewed the patient's medical records. - Ramses Inquiry Pt receiving controlled substance: No Vital Signs: 07/01/21 19:00 Temperature 98.0 F Temperature Source Oral Pulse Rate [Left Radial] 102 H Respiratory Rate 16 Blood Pressure [Right Arm] 159/100 H Blood Pressure Mean [Right Arm] 119 Blood Pressure Position [Right Arm] Sitting 02 Sat by Pulse Oximetry 96 Oxygen Delivery Method Room Air - Lab Data Lab results reviewed: Yes: I reviewed the patient's lab results. Lab Results 07/01/21 19:05: Urine Color Yellow, Urine Appearance Clear, Urine pH 6.0, Ur Specific [place] >= 1.030, Urine Protein Negative, Urine Glucose (UA) Negative, Urine Ketones Negative, Urine Blood Negative, Urine Nitrate Negative, Urine Bilirubin Negative, Urine Urobilinogen 0.2, Ur Leukocyte Esterase Negative, Urine RBC None, Urine WBC 3-5, Ur Squamous Epith Cells Occasional, Urine Bacteria Trace 07/01/21 19:05: Urine Opiates Screen Negative, Urine Methadone Screen Negative, Ur Barbituates Screen Negative, Ur Phencyclidine Scrn Negative, Ur Amphetamines Screen Negative, U Benzodiazepines Scrn Negative, Urine Cocaine Screen Negative, U Marijuana (THC) Screen Negative 07/01/21 19:42: Sodium 137, Potassium 3.5, Chloride 105, Carbon Dioxide 24, Anion Gap 11.5, BUN 10, Creatinine 0.50 L, Estimated Creat Clear 236, Estimated GFR 141, Est GFR ( Amer) 171, Glucose 131 H, Calcium 9.2, Total Bilirubin 0.5, AST 33, ALT 38, Alkaline Phosphatase 106, Total Protein 6.9, Albumin 4.2, Globulin 2.7, Albumin/Globulin Ratio 1.6, Amylase 99, Lipase 304 H 07/01/21 20:09: WBC 8.7, RBC 4.47, Hgb 12.7, Hct 37.5, MCV 83.8, MCH 28.4, MCHC 33.8, RDW 15.4, Plt Count 348, MPV 7.7, Neut % (Auto) 68.0, Lymph % (Auto) 26.6, [place] % (Auto) 3.3, Eos % (Auto) 0.1, Baso % (Auto) 2.1 H, Neut # (Auto) 5.9, Lymph # (Auto) 2.3, [place] # (Auto) 0.3, Eos # (Auto) 0.0, Baso # (Auto) 0.2 Result diagrams: 07/01/21 20:09 07/01/21 19:42 Orders (Tests/Meds): ED MEDICATIONS Discontinued Medications Generic Name Dose Route Start Last Admin Trade Name Karen PRN Reason Stop Dose Admin Hydromorphone HCl 1 mg 07/01/21 20:52 Hydromorphone 2mg/Ml Syringe IM 07/01/21 20:53 ONCE ONE Promethazine HCl 25 mg 07/01/21 20:52 Promethazine Hcl 25mg/Ml 1ml Vial IM 07/01/21 20:53 ONCE ONE Medical Decision Narrative: stable exam and labs and recheck if needed Nausea/Vomiting/Diarrhea HPI - General Chief complaint: Abdominal Pain Stated complaint: Chronic pancreatitis;abd pain, vomiting, diarrhea Time Seen by Provider: 07/01/21 21:14 Mode of Arrival: Ambulatory Source of Information: Patient, Medical Record Limitations: No Limitations Description of Symptoms (Recalled from ER Triage Doc. by RN): PT WITH HX OF CHRONIC PANCREATITS AND REPORTS THAT SHE HAS NOT BEEN ABLE TO GET HER PAIN UNDER CONTROL TODAY AFTER TAKING HER MEDICATIONS. - History of Present Illness HPI Narrative: acute exacerbation of chronic and pain MD complaint: nausea, abdominal pain Onset (ago): hour(s) Associated Abdominal Pain: Yes Lo
[2021-07-01 21:26] VITALS: BP 147/75; PULSE 90; RESP 16; TEMP 36.7; O2SAT 96
== END 2021-07-01 21:28 | disposition home or self-care (01) ==
PROVIDERS: Emergency Provider Emergency Medicine; PCP Family Medicine
DX: R10.84 Generalized abdominal pain (principal); K86.1 Other chronic pancreatitis; E78.5 Hyperlipidemia, unspecified; F17.210 Nicotine dependence, cigarettes, uncomplicated
CPT/HCPCS: 36415; 80053; 80305; 81001; 82150; 83690; 85025; 96372; 99283

== ENCOUNTER 2021-07-11 19:39 | Emergency (ER) | payer BC, SELFPAY ==
[2021-07-11 19:40] VITALS: BP 152/99; PULSE 90; RESP 18; TEMP 36.7; O2SAT 99; BMI 34.6
[2021-07-11 20:30] LABS: Basophils # 0.2 K/mm3 (0-0.2); Basophils % 2.6 % (0.1-2.0); Eosinophils % 0.4 % (0.1-12.0); Hematocrit 36.1 % (37.0-47.0); Hemoglobin 12.1 g/dL (12.2-16.2); Lymphocytes # 1.7 K/mm3 (0.7-4.5); Lymphocytes % 26.2 % (10-50); Mean Corpuscular HGB Conc 33.5 g/dL (31.8-35.4); Mean Corpuscular Volume 83.4 fl (81-99); Mean Platelet Volume 7.4 fl (7.4-10.4); Monocytes # 0.2 K/mm3 (0.1-1.0); Monocytes % 3.2 % (1.7-9.3); Neutrophils # 4.4 K/mm3 (1.8-7.8); Neutrophils % 67.6 % (37.0-80.0); Platelet Count 332 K/mm3 (142-424); Red Blood Count 4.32 M/mm3 (4.20-5.40); Red Cell Distribution Width 15.6 % (11.5-17.5); White Blood Count 6.5 K/mm3 (4.8-10.8)
[2021-07-11 20:35] LABS: Chloride 103 mmol/L (98-107); Potassium 4.1 mmoL/L (3.5-5.1); Sodium 137 mmol/L (136-145)
[2021-07-11 20:37] LABS: Amylase 120 U/L (30-110)
[2021-07-11 20:38] LABS: Alanine Aminotransferase 20 U/L (12-78); Albumin Level 4.2 g/dl (3.5-5.0); Albumin/Globulin Ratio 1.4 (1.1-1.8); Alkaline Phosphatase 97 U/L (38-126); Anion Gap 13.1 mEq/L (5-15); Aspartate Amino Transferase 23 U/L (14-36); Bilirubin,Total 0.3 mg/dl (0.2-1.3); Blood Urea Nitrogen 7 mg/dl (7-17); Calcium 9.7 mg/dl (8.4-10.2); Carbon Dioxide 25 mmol/L (22.0-30.0); Creatinine Clearance Estimated 236 mL/min (50-200); Estimated Glomerular Filt Rate 141 ml/min (>60); GFR (African American) 171 ML/MIN (>60); Globulin 2.9 g/dL (1.3-3.2); Glucose 113 mg/dl (74-100); Lipase 232 U/L (23-300); Total Protein,Serum 7.1 g/dl (6.3-8.2)
--- NOTE | 2021-07-11 20:47 | HMH.EDNVD ---
ED Disposition Clinical Impression: Abdominal pain Qualifiers: Abdominal location: generalized Qualified Code(s): R10.84 - Generalized abdominal pain Disposition: Home, Self-Care Condition on Discharge: Good Instructions: DI for Nausea -- Adult Additional Instructions: fluids and see pcp for follow up Referrals: Elmo Escobar MD [Primary Care Provider] - - Critical Care Critical Care Time: No Attestation: On 07/11/21, the high probability of a clinically significant, sudden or life threatening deterioration of the following system(s) required my full and direct attention, intervention and personal management. The time I documented below is in addition to time spent performing reported procedures but includes the following listed in this critical care notation. Medical Decision Making - Medical Records Medical records reviewed: Yes: I reviewed the patient's medical records. - Ramses Inquiry Pt receiving controlled substance: No Vital Signs: 07/11/21 19:40 Temperature 98.1 F Temperature Source Oral Pulse Rate [Right] 90 Respiratory Rate 18 Blood Pressure [Right Arm] 152/99 H Blood Pressure Mean [Right Arm] 116 02 Sat by Pulse Oximetry 99 - Lab Data Lab results reviewed: Yes: I reviewed the patient's lab results. Lab Results 07/11/21 20:18: WBC 6.5, RBC 4.32, Hgb 12.1 L, Hct 36.1 L, MCV 83.4, MCH 28.0, MCHC 33.5, RDW 15.6, Plt Count 332, MPV 7.4, Neut % (Auto) 67.6, Lymph % (Auto) 26.2, [place] % (Auto) 3.2, Eos % (Auto) 0.4, Baso % (Auto) 2.6 H, Neut # (Auto) 4.4, Lymph # (Auto) 1.7, [place] # (Auto) 0.2, Eos # (Auto) 0.0, Baso # (Auto) 0.2 07/11/21 20:18: Sodium 137, Potassium 4.1, Chloride 103, Carbon Dioxide 25, Anion Gap 13.1, BUN 7, Creatinine 0.50 L, Estimated Creat Clear 236, Estimated GFR 141, Est GFR ( Amer) 171, Glucose 113 H, Calcium 9.7, Total Bilirubin 0.3, AST 23, ALT 20, Alkaline Phosphatase 97, Total Protein 7.1, Albumin 4.2, Globulin 2.9, Albumin/Globulin Ratio 1.4, Amylase 120 H, Lipase 232 Result diagrams: 07/11/21 20:18 07/11/21 20:18 Orders (Tests/Meds): ED MEDICATIONS Discontinued Medications Generic Name Dose Route Start Last Admin Trade Name Karen PRN Reason Stop Dose Admin Hydromorphone HCl 1 mg 07/11/21 20:36 Hydromorphone 2mg/Ml Syringe IM 07/11/21 20:37 ONCE ONE Promethazine HCl 25 mg 07/11/21 20:36 Promethazine Hcl 25mg/Ml 1ml Vial IM 07/11/21 20:37 ONCE ONE Sodium Chloride 25 ml 07/11/21 20:36 Sodium Chloride 0.9% 25ml Bag IV 07/11/21 20:37 ONCE ONE Medical Decision Narrative: has ongoing abd pain with stable labs and exam Nausea/Vomiting/Diarrhea HPI - General Chief complaint: Nausea/Vomiting/Diarrhea Stated complaint: abd pain,vomiting,diarrhea Time Seen by Provider: 07/11/21 20:48 Mode of Arrival: Ambulatory Source of Information: Patient, Medical Record Limitations: No Limitations Description of Symptoms (Recalled from ER Triage Doc. by RN): pt c/o n/v/d since 11:30 am and abd pain since noon - History of Present Illness HPI Narrative: pt with abd pain with assoc nausea -pt has chronic pain - involved in pain [facility] MD complaint: nausea, abdominal pain Onset (ago): hour(s) Associated Abdominal Pain: Yes Location of pain: diffuse Severity: moderate Consistency: colicky Associated symptoms: denies other symptoms - Related Data Home Medications Medication Instructions Recorded Confirmed diclofenac sodium 1 % topical gel 2 g TOPICAL QID g 11/26/20 07/09/21 hydroxyzine pamoate 50 mg capsule 50 mg PO DAILY cap 05/28/21 07/09/21 polyethylene glycol 3350 17 17 g PO DAILY g 05/28/21 07/09/21 gram/dose oral powder sennosides 8.6 mg-docusate sodium 1 tab PO NEEDED PRN 05/28/21 07/09/21 50 mg tablet Lidocaine [Lidocaine 5% patch] 1 patch TOPICAL DAILY 06/03/21 07/09/21 ondansetron 4 mg disintegrating 4 mg PO Q8HP PRN tab 06/18/21 07/09/21 tablet Lurasidone
[2021-07-11 21:09] VITALS: BP 147/74; PULSE 87; RESP 18; TEMP 36.7; O2SAT 99
== END 2021-07-11 21:19 | disposition home or self-care (01) ==
PROVIDERS: Emergency Provider Emergency Medicine; PCP Family Medicine
DX: N39.0 Urinary tract infection, site not specified (principal); R11.2 Nausea with vomiting, unspecified; R19.7 Diarrhea, unspecified; E78.5 Hyperlipidemia, unspecified; E07.9 Disorder of thyroid, unspecified; M19.90 Unspecified osteoarthritis, unspecified site; G89.29 Other chronic pain; M79.7 Fibromyalgia; K85.90 Acute pancreatitis without necrosis or infection, unspecified; E66.9 Obesity, unspecified; F41.9 Anxiety disorder, unspecified; F17.210 Nicotine dependence, cigarettes, uncomplicated; Z79.899 Other long term (current) drug therapy; Z88.5 Allergy status to narcotic agent; Z88.6 Allergy status to analgesic agent; Z68.34 Body mass index [BMI] 34.0-34.9, adult; Z82.49 Family history of ischemic heart disease and other diseases of the circulatory system; Z80.9 Family history of malignant neoplasm, unspecified
CPT/HCPCS: 36415; 80053; 82150; 83690; 85025; 96372; 99284

== ENCOUNTER 2021-07-16 00:56 | Emergency (ER) | payer BC, SELFPAY ==
[2021-07-16 00:58] VITALS: BP 158/107; PULSE 98; RESP 16; TEMP 36.4; O2SAT 98; BMI 34.6
[2021-07-16 01:01] VITALS: BMI 34.6
[2021-07-16 01:08] LABS: Microscopic, Urine URINE MICROSCOPIC (MICROSCOPIC)
[2021-07-16 01:28] LABS: Appearance,Urine CLEAR (Clear); Bilirubin,Urine Negative (Negative); Blood, Urine 2+ (Negative); Color,Urine YELLOW (Yellow); Glucose,Urine (UA) Negative (Negative); Ketones,Urine Negative (Negative); Leukocyte Esterase,Urine Negative (Negative); Nitrate,Urine Negative (Negative); Protein,Urine Negative (Negative); Specific Gravity, Urine 1.015 (1.005-1.030); Urobilinogen,Urine 0.2 EU/dl (0.2)
[2021-07-16 01:39] LABS: Benzodiazepines Screen,Urine Negative ng/ml (<200)
[2021-07-16 01:40] LABS: Amphetamine/Metha Screen,Urine Negative ng/ml (<1000); Barbiturates Screen,Urine Negative ng/ml (<200)
[2021-07-16 01:41] LABS: Cannabinoid Screen,Urine Negative ng/ml (<50)
[2021-07-16 01:42] LABS: Cocaine Screen,Urine Negative ng/ml (<300); Methadone Screen,Urine Negative ng/ml (<300)
[2021-07-16 01:43] LABS: Opiate Screen,Urine Negative ng/ml (<300)
[2021-07-16 01:44] LABS: Phencyclidine Screen,Urine Negative ng/ml (<25)
[2021-07-16 01:49] LABS: Bacteria,Urine 1+ /lpf; WBC,Urine Occasional #/hpf (0-3)
--- NOTE | 2021-07-16 01:50 | HMH.EDNVD ---
ED Disposition Clinical Impression: Abdominal pain Qualifiers: Abdominal location: generalized Qualified Code(s): R10.84 - Generalized abdominal pain Disposition: Home, Self-Care Condition on Discharge: Good Instructions: DI for Acute Abdominal Pain Additional Instructions: call pcp for follow up Referrals: Elmo Escobar MD [Primary Care Provider] - - Critical Care Critical Care Time: No Attestation: On 07/16/21, the high probability of a clinically significant, sudden or life threatening deterioration of the following system(s) required my full and direct attention, intervention and personal management. The time I documented below is in addition to time spent performing reported procedures but includes the following listed in this critical care notation. Medical Decision Making - Medical Records Medical records reviewed: Yes: I reviewed the patient's medical records. - Ramses Inquiry Pt receiving controlled substance: No Vital Signs: 07/16/21 00:58 Temperature 97.6 F Temperature Source Oral Pulse Rate [Right] 98 H Respiratory Rate 16 Blood Pressure [Right Arm] 158/107 H Blood Pressure Mean [Right Arm] 124 02 Sat by Pulse Oximetry 98 - Lab Data Lab results reviewed: Yes: I reviewed the patient's lab results. Lab Results 07/16/21 01:03: Urine Color Yellow, Urine Appearance Clear, Urine pH 5.0, Ur Specific [place] 1.015, Urine Protein Negative, Urine Glucose (UA) Negative, Urine Ketones Negative, Urine Blood 2+, Urine Nitrate Negative, Urine Bilirubin Negative, Urine Urobilinogen 0.2, Ur Leukocyte Esterase Negative, Urine RBC 3-5, Urine WBC Occasional, Urine Bacteria 1+ 07/16/21 01:03: Urine Opiates Screen Negative, Urine Methadone Screen Negative, Ur Barbituates Screen Negative, Ur Phencyclidine Scrn Negative, Ur Amphetamines Screen Negative, U Benzodiazepines Scrn Negative, Urine Cocaine Screen Negative, U Marijuana (THC) Screen Negative 07/16/21 01:39: WBC 6.3, RBC 4.40, Hgb 12.0 L, Hct 37.0, MCV 84.1, MCH 27.3, MCHC 32.5, RDW 15.3, Plt Count 311, MPV 7.4, Neut % (Auto) 54.2, Lymph % (Auto) 37.9, [place] % (Auto) 5.7, Eos % (Auto) 0.3, Baso % (Auto) 1.9, Neut # (Auto) 3.4, Lymph # (Auto) 2.4, [place] # (Auto) 0.4, Eos # (Auto) 0.0, Baso # (Auto) 0.1 07/16/21 01:39: Sodium 138, Potassium 3.6, Chloride 106, Carbon Dioxide 20 L, Anion Gap 15.6 H, BUN 12, Creatinine 0.60, Estimated Creat Clear 197, Estimated GFR 114, Est GFR ( Amer) 138, Glucose 104 H, Calcium 9.1, Total Bilirubin 0.3, AST 27, ALT 24, Alkaline Phosphatase 79, Total Protein 7.0, Albumin 4.2, Globulin 2.8, Albumin/Globulin Ratio 1.5, Amylase 80, Lipase 176 Result diagrams: 07/16/21 01:39 07/16/21 01:39 Medical Decision Narrative: has acute exacerbation of chronic pain Nausea/Vomiting/Diarrhea HPI - General Chief complaint: Abdominal Pain Stated complaint: Abdominal Pain with vomiting Time Seen by Provider: 07/16/21 01:50 Mode of Arrival: Ambulatory Source of Information: Patient, Medical Record Limitations: No Limitations Description of Symptoms (Recalled from ER Triage Doc. by RN): pt c/o n/v/d and abd pain that started at 1pm this afternoon - History of Present Illness HPI Narrative: abd pain with nausea MD complaint: nausea, vomiting, abdominal pain Onset (ago): hour(s) Associated Abdominal Pain: Yes Location of pain: diffuse Associated symptoms: denies other symptoms - Related Data Home Medications Medication Instructions Recorded Confirmed diclofenac sodium 1 % topical gel 2 g TOPICAL QID g 11/26/20 07/09/21 hydroxyzine pamoate 50 mg capsule 50 mg PO DAILY cap 05/28/21 07/09/21 polyethylene glycol 3350 17 17 g PO DAILY g 05/28/21 07/09/21 gram/dose oral powder sennosides 8.6 mg-docusate sodium 1 tab PO NEEDED PRN 05/28/21 07/09/21 50 mg tablet Lidocaine [Lidocaine 5% patch] 1 patch TOPICAL DAILY 06/03/21 07/09/21 ondansetron 4 mg disintegrating 4 mg PO Q8HP PRN tab 06/18/21 07/09/21 tablet Ericka
[2021-07-16 01:56] LABS: Basophils # 0.1 K/mm3 (0-0.2); Basophils % 1.9 % (0.1-2.0); Eosinophils % 0.3 % (0.1-12.0); Lymphocytes # 2.4 K/mm3 (0.7-4.5); Lymphocytes % 37.9 % (10-50); Mean Corpuscular HGB Conc 32.5 g/dL (31.8-35.4); Mean Corpuscular Hemoglobin 27.3 pg (27.0-31.2); Mean Corpuscular Volume 84.1 fl (81-99); Mean Platelet Volume 7.4 fl (7.4-10.4); Monocytes # 0.4 K/mm3 (0.1-1.0); Monocytes % 5.7 % (1.7-9.3); Neutrophils # 3.4 K/mm3 (1.8-7.8); Neutrophils % 54.2 % (37.0-80.0); Platelet Count 311 K/mm3 (142-424); Red Cell Distribution Width 15.3 % (11.5-17.5); White Blood Count 6.3 K/mm3 (4.8-10.8)
[2021-07-16 02:00] LABS: Chloride 106 mmol/L (98-107)
[2021-07-16 02:01] LABS: Potassium 3.6 mmoL/L (3.5-5.1); Sodium 138 mmol/L (136-145)
[2021-07-16 02:03] LABS: Amylase 80 U/L (30-110); Blood Urea Nitrogen 12 mg/dl (7-17); Creatinine Clearance Estimated 197 mL/min (50-200); Estimated Glomerular Filt Rate 114 ml/min (>60); GFR (African American) 138 ML/MIN (>60)
[2021-07-16 02:04] LABS: Alanine Aminotransferase 24 U/L (12-78); Albumin Level 4.2 g/dl (3.5-5.0); Albumin/Globulin Ratio 1.5 (1.1-1.8); Alkaline Phosphatase 79 U/L (38-126); Anion Gap 15.6 mEq/L (5-15); Aspartate Amino Transferase 27 U/L (14-36); Bilirubin,Total 0.3 mg/dl (0.2-1.3); Calcium 9.1 mg/dl (8.4-10.2); Carbon Dioxide 20 mmol/L (22.0-30.0); Globulin 2.8 g/dL (1.3-3.2); Glucose 104 mg/dl (74-100); Lipase 176 U/L (23-300)
[2021-07-16 02:20] VITALS: BP 145/75; PULSE 89; RESP 16; TEMP 36.4; O2SAT 99
== END 2021-07-16 02:27 | disposition home or self-care (01) ==
PROVIDERS: Emergency Provider Emergency Medicine; PCP Family Medicine
DX: R10.84 Generalized abdominal pain (principal); Z79.899 Other long term (current) drug therapy; Z88.5 Allergy status to narcotic agent; F41.9 Anxiety disorder, unspecified; E78.5 Hyperlipidemia, unspecified; M19.90 Unspecified osteoarthritis, unspecified site; E07.9 Disorder of thyroid, unspecified; M79.7 Fibromyalgia; Z72.0 Tobacco use
CPT/HCPCS: 80053; 80305; 81001; 82150; 83690; 85025; 96372; 99283

== ENCOUNTER 2021-07-18 22:29 | Emergency (ER) | payer BC, SELFPAY ==
[2021-07-18 22:30] VITALS: BP 153/100; PULSE 98; RESP 14; TEMP 36.7; O2SAT 100; BMI 37.0
--- NOTE | 2021-07-18 23:28 | HMH.EDNVD ---
ED Disposition Clinical Impression: Abdominal pain Qualifiers: Abdominal location: generalized Qualified Code(s): R10.84 - Generalized abdominal pain Disposition: Home, Self-Care Condition on Discharge: Good Instructions: DI for Acute Abdominal Pain Additional Instructions: call pcp in am Referrals: Elmo Escobar MD [Primary Care Provider] - - Critical Care Critical Care Time: No Attestation: On 07/18/21, the high probability of a clinically significant, sudden or life threatening deterioration of the following system(s) required my full and direct attention, intervention and personal management. The time I documented below is in addition to time spent performing reported procedures but includes the following listed in this critical care notation. Medical Decision Making - Medical Records Medical records reviewed: Yes: I reviewed the patient's medical records. - Ramses Inquiry Pt receiving controlled substance: No Vital Signs: 07/18/21 22:30 Temperature 98.0 F Temperature Source Oral Pulse Rate [Left Radial] 98 H Respiratory Rate 14 Blood Pressure [Right Arm] 153/100 H Blood Pressure Mean [Right Arm] 117 02 Sat by Pulse Oximetry 100 Oxygen Delivery Method Room Air - Lab Data Lab results reviewed: Yes: I reviewed the patient's lab results. Medical Decision Narrative: stable clinical exam and will give medication and asked pt to talk with pcp Nausea/Vomiting/Diarrhea HPI - General Chief complaint: Abdominal Pain Stated complaint: stomach pain and vomiting Time Seen by Provider: 07/18/21 23:28 Mode of Arrival: Ambulatory Source of Information: Patient, Medical Record Limitations: No Limitations Description of Symptoms (Recalled from ER Triage Doc. by RN): PT REPORTS THAT SHE IS HAVING PAIN FROM HER CHRONIC PANCREATITIS. PT REPORTS SHE SEES DR. DENISE ON THURSDAY AND SHE IS NOW BEING SEEN AT A PAIN CLINIC. PT REPORTS THAT SHE HAD TAKEN ALL OF HER NORMAL HOME MEDS. - History of Present Illness HPI Narrative: pt with acute exacerbation of ongoing abd pain - has nausea and vomiting today - has seen pcp and has pending pain pump - uses daily pain meds complaint: nausea, abdominal pain Onset (ago): hour(s) Associated Abdominal Pain: Yes Location of pain: diffuse Severity: similar to previous episodes Consistency: intermittent Associated symptoms: nausea/vomiting - Related Data Home Medications Medication Instructions Recorded Confirmed diclofenac sodium 1 % topical gel 2 g TOPICAL QID g 11/26/20 07/18/21 hydroxyzine pamoate 50 mg capsule 50 mg PO DAILY cap 05/28/21 07/18/21 polyethylene glycol 3350 17 17 g PO DAILY g 05/28/21 07/18/21 gram/dose oral powder sennosides 8.6 mg-docusate sodium 1 tab PO NEEDED PRN 05/28/21 07/18/21 50 mg tablet Lidocaine [Lidocaine 5% patch] 1 patch TOPICAL DAILY 06/03/21 07/18/21 ondansetron 4 mg disintegrating 4 mg PO Q8HP PRN tab 06/18/21 07/18/21 tablet Lurasidone HCl [Latuda] 40 mg PO DAILY 06/22/21 07/18/21 Venlafaxine HCl [Effexor XR 150mg] 150 mg PO DAILY 06/22/21 07/18/21 Ketoconazole 1 applic TP BID 07/18/21 07/18/21 Previous Rx's Medication Instructions Recorded pregabalin 300 mg capsule 300 mg PO BID PRN #60 cap 06/21/21 lorazepam 0.5 mg tablet 0.5 mg PO DAILY PRN #7 tab 07/16/21 oxycodone 5 mg tablet 5 mg PO TID PRN #21 tab 07/16/21 Allergies Allergy/AdvReac Type Severity Reaction Status Date / Time tramadol Allergy Mild Rash Verified 07/16/21 13:54 morphine AdvReac stomach Verified 07/16/21 13:54 pains [facility] History - Hepatitis A Screen Attestation statement:: This patient has been screened for Hepatitis A risk factors. I have reviewed the patient's past medical history: Yes Medical History: Reports:: Anxiety, Hyperlipidemia, Urinary Tract Infection Denies:: Cancer, Diabetes Mellitus Type 1, Diabetes Mellitus Type 2, MRSA, Seizures Other Medical History: Reports: Arthritis, Fibromyalgia, Thyroi
[2021-07-18 23:52] VITALS: BP 147/82; PULSE 90; RESP 16; TEMP 36.7; O2SAT 100
== END 2021-07-19 00:03 | disposition home or self-care (01) ==
PROVIDERS: Emergency Provider Emergency Medicine; PCP Family Medicine
DX: K86.1 Other chronic pancreatitis; E78.5 Hyperlipidemia, unspecified; E07.9 Disorder of thyroid, unspecified; E11.9 Type 2 diabetes mellitus without complications; M19.90 Unspecified osteoarthritis, unspecified site; M79.7 Fibromyalgia; E66.9 Obesity, unspecified; F41.9 Anxiety disorder, unspecified; Z68.37 Body mass index [BMI] 37.0-37.9, adult; Z79.899 Other long term (current) drug therapy; Z88.5 Allergy status to narcotic agent; Z88.6 Allergy status to analgesic agent; Z82.49 Family history of ischemic heart disease and other diseases of the circulatory system; Z80.9 Family history of malignant neoplasm, unspecified
CPT/HCPCS: 96372; 99284

== ENCOUNTER 2021-07-20 22:04 | Emergency (ER) | payer BC, SELFPAY ==
[2021-07-20 22:20] VITALS: BP 157/98; PULSE 88; RESP 18; TEMP 36.8; O2SAT 98; BMI 36.6
[2021-07-20 22:28] LABS: Microscopic, Urine URINE MICROSCOPIC (MICROSCOPIC)
[2021-07-20 22:31] LABS: Appearance,Urine CLEAR (Clear); Bilirubin,Urine Negative (Negative); Blood, Urine 2+ (Negative); Color,Urine YELLOW (Yellow); Glucose,Urine (UA) Negative (Negative); Ketones,Urine Negative (Negative); Leukocyte Esterase,Urine Negative (Negative); Nitrate,Urine Negative (Negative); Protein,Urine Negative (Negative); Specific Gravity, Urine 1.015 (1.005-1.030); Urobilinogen,Urine 0.2 EU/dl (0.2)
[2021-07-20 22:34] LABS: WBC,Urine Occasional #/hpf (0-3)
--- NOTE | 2021-07-20 23:17 | HMH.EDNVD ---
ED Disposition Clinical Impression: Abdominal pain Qualifiers: Abdominal location: generalized Qualified Code(s): R10.84 - Generalized abdominal pain Disposition: Home, Self-Care Condition on Discharge: Good Instructions: DI for Acute Abdominal Pain Additional Instructions: please see pcp for follow up Referrals: Elmo Escobar MD [Primary Care Provider] - - Critical Care Critical Care Time: No Attestation: On 07/20/21, the high probability of a clinically significant, sudden or life threatening deterioration of the following system(s) required my full and direct attention, intervention and personal management. The time I documented below is in addition to time spent performing reported procedures but includes the following listed in this critical care notation. Medical Decision Making - Medical Records Medical records reviewed: Yes: I reviewed the patient's medical records. - Ramses Inquiry Pt receiving controlled substance: No Vital Signs: 07/20/21 22:20 Temperature 98.2 F Temperature Source Oral Pulse Rate [Apical] 88 Respiratory Rate 18 Blood Pressure [Right Arm] 157/98 H Blood Pressure Mean [Right Arm] 117 Blood Pressure Source [Right Arm] Automatic Cuff Blood Pressure Position [Right Arm] Sitting 02 Sat by Pulse Oximetry 98 Oxygen Delivery Method Room Air - Lab Data Lab results reviewed: Yes: I reviewed the patient's lab results. Lab Results 07/20/21 22:18: Urine Color Yellow, Urine Appearance Clear, Urine pH 6.0, Ur Specific [place] 1.015, Urine Protein Negative, Urine Glucose (UA) Negative, Urine Ketones Negative, Urine Blood 2+, Urine Nitrate Negative, Urine Bilirubin Negative, Urine Urobilinogen 0.2, Ur Leukocyte Esterase Negative, Urine RBC 5-10, Urine WBC Occasional, Ur Squamous Epith Cells 10-20, Ur Renal Epithelial Cell 3-5 Medical Decision Narrative: pt with acute episode of chronic bad pain Nausea/Vomiting/Diarrhea HPI - General Chief complaint: Abdominal Pain Stated complaint: stabbing pain in abd Time Seen by Provider: 07/20/21 23:00 Mode of Arrival: Ambulatory Source of Information: Patient, Medical Record Limitations: No Limitations Description of Symptoms (Recalled from ER Triage Doc. by RN): Patient c/o central abdominal pain that radiates into her left side with nausea and vomiting. States that she feels as if its a pancreatic attack and has been going on for the past 5 hours. States that she took a pain pill 3 hours ago but the pain has not subsided. - History of Present Illness HPI Narrative: pt with acute exacerbation of ongoing abd pain with nausea - has taken pain med at home MD complaint: nausea, vomiting, diarrhea Onset (ago): hour(s) Associated Abdominal Pain: Yes Location of pain: diffuse Severity: moderate Consistency: intermittent Associated symptoms: denies other symptoms - Related Data Home Medications Medication Instructions Recorded Confirmed diclofenac sodium 1 % topical gel 2 g TOPICAL QID g 11/26/20 07/18/21 hydroxyzine pamoate 50 mg capsule 50 mg PO DAILY cap 05/28/21 07/18/21 polyethylene glycol 3350 17 17 g PO DAILY g 05/28/21 07/18/21 gram/dose oral powder sennosides 8.6 mg-docusate sodium 1 tab PO NEEDED PRN 05/28/21 07/18/21 50 mg tablet Lidocaine [Lidocaine 5% patch] 1 patch TOPICAL DAILY 06/03/21 07/18/21 ondansetron 4 mg disintegrating 4 mg PO Q8HP PRN tab 06/18/21 07/18/21 tablet Lurasidone HCl [Latuda] 40 mg PO DAILY 06/22/21 07/18/21 Venlafaxine HCl [Effexor XR 150mg] 150 mg PO DAILY 06/22/21 07/18/21 Ketoconazole 1 applic TP BID 07/18/21 07/18/21 Previous Rx's Medication Instructions Recorded pregabalin 300 mg capsule 300 mg PO BID PRN #60 cap 06/21/21 lorazepam 0.5 mg tablet 0.5 mg PO DAILY PRN #7 tab 07/16/21 oxycodone 5 mg tablet 5 mg PO TID PRN #21 tab 07/16/21 Allergies Allergy/AdvReac Type Severity Reaction Status Date / Time tramadol Allergy Mild Rash Verified 07/16/21 13:54 morphin
[2021-07-20 23:34] VITALS: BP 150/90; PULSE 84; RESP 18; TEMP 36.8; O2SAT 99
== END 2021-07-20 23:36 | disposition home or self-care (01) ==
PROVIDERS: Emergency Provider Emergency Medicine; PCP Family Medicine
DX: R10.84 Generalized abdominal pain (principal); F41.8 Other specified anxiety disorders; R11.0 Nausea; Z72.0 Tobacco use; E78.5 Hyperlipidemia, unspecified; Z79.899 Other long term (current) drug therapy
CPT/HCPCS: 81001; 96372; 99284

== ENCOUNTER 2021-07-22 20:09 | Emergency (ER) | payer BC, SELFPAY ==
[2021-07-22 20:10] VITALS: BP 138/101; PULSE 107; RESP 16; TEMP 36.6; O2SAT 97; BMI 37.0
[2021-07-22 20:36] LABS: Microscopic, Urine URINE MICROSCOPIC (MICROSCOPIC)
[2021-07-22 20:38] LABS: Appearance,Urine CLEAR (Clear); Bilirubin,Urine Negative (Negative); Blood, Urine Negative (Negative); Color,Urine YELLOW (Yellow); Glucose,Urine (UA) Negative (Negative); Ketones,Urine Negative (Negative); Leukocyte Esterase,Urine Negative (Negative); Nitrate,Urine Negative (Negative); Protein,Urine Negative (Negative); Specific Gravity, Urine 1.015 (1.005-1.030); Urobilinogen,Urine 0.2 EU/dl (0.2)
[2021-07-22 20:49] LABS: Amphetamine/Metha Screen,Urine Negative ng/ml (<1000)
[2021-07-22 20:50] LABS: Barbiturates Screen,Urine Negative ng/ml (<200); Benzodiazepines Screen,Urine Negative ng/ml (<200)
[2021-07-22 20:51] LABS: Cannabinoid Screen,Urine Negative ng/ml (<50)
[2021-07-22 20:52] LABS: Cocaine Screen,Urine Negative ng/ml (<300); Methadone Screen,Urine Negative ng/ml (<300)
[2021-07-22 20:53] LABS: Opiate Screen,Urine Negative ng/ml (<300)
[2021-07-22 20:54] LABS: Phencyclidine Screen,Urine Negative ng/ml (<25)
--- NOTE | 2021-07-22 20:56 | HMH.EDGENADL ---
ED Disposition Clinical Impression: Abdominal pain Qualifiers: Abdominal location: generalized Qualified Code(s): R10.84 - Generalized abdominal pain Disposition: Home, Self-Care Condition on Discharge: Good Instructions: DI for Acute Pain -- Adult Additional Instructions: see pcp in am Referrals: Elmo Escobar MD [Primary Care Provider] - - Critical Care Critical Care Time: No Attestation: On 07/22/21, the high probability of a clinically significant, sudden or life threatening deterioration of the following system(s) required my full and direct attention, intervention and personal management. The time I documented below is in addition to time spent performing reported procedures but includes the following listed in this critical care notation. Medical Decision Making - Medical Records Medical records reviewed: Yes: I reviewed the patient's medical records. - Ramses Inquiry Pt receiving controlled substance: No Vital Signs: 07/22/21 20:10 Temperature 98 F Temperature Source Oral Pulse Rate [Left Radial] 107 H Respiratory Rate 16 Blood Pressure [Right Arm] 138/101 H Blood Pressure Mean [Right Arm] 113 Blood Pressure Source [Right Arm] Automatic Cuff Blood Pressure Position [Right Arm] Sitting 02 Sat by Pulse Oximetry 97 Oxygen Delivery Method Room Air - Lab Data Lab results reviewed: Yes: I reviewed the patient's lab results. Lab Results 07/22/21 20:24: Urine Color Yellow, Urine Appearance Clear, Urine pH 8.0, Ur Specific [place] 1.015, Urine Protein Negative, Urine Glucose (UA) Negative, Urine Ketones Negative, Urine Blood Negative, Urine Nitrate Negative, Urine Bilirubin Negative, Urine Urobilinogen 0.2, Ur Leukocyte Esterase Negative, Urine RBC None, Urine WBC Occasional, Ur Squamous Epith Cells 3-5, Urine Bacteria Trace 07/22/21 20:24: Urine Opiates Screen Negative, Urine Methadone Screen Negative, Ur Barbituates Screen Negative, Ur Phencyclidine Scrn Negative, Ur Amphetamines Screen Negative, U Benzodiazepines Scrn Negative, Urine Cocaine Screen Negative, U Marijuana (THC) Screen Negative Medical Decision Narrative: has ongoing issues with pain and stable exam - has appt in am with pcp General Adult HPI - General Chief complaint: PAIN Stated complaint: abd pain, vomiting Time Seen by Provider: 07/22/21 20:56 Mode of Arrival: Ambulatory Source of Information: Patient, Parent(s), Medical Record Limitations: No Limitations Description of Symptoms (Recalled from ER Triage Doc. by RN): PT WITH HX OF CHRONIC PANCREATITIS. PT REPORTS THAT SHE HAS TAKEN HER AT HOME MEDICATIONS AND CONTINUES TO HAVE PAIN. PT REPORTS THAT SHE SEES PCP IN THE MORNING AND PAIN CLINIC REFUSED TO SEE HER. - History of Present Illness HPI narrative: pt with ongoing issues with abd pain - has appt with pcp in am to review issues Onset (ago): day(s) Location: abdomen Severity: moderate Quality: constant Consistency: intermittent Associated symptoms: nausea/vomiting Treatments prior to arrival: none - Related Data Home Medications Medication Instructions Recorded Confirmed diclofenac sodium 1 % topical gel 2 g TOPICAL QID g 11/26/20 07/18/21 hydroxyzine pamoate 50 mg capsule 50 mg PO DAILY cap 05/28/21 07/18/21 polyethylene glycol 3350 17 17 g PO DAILY g 05/28/21 07/18/21 gram/dose oral powder sennosides 8.6 mg-docusate sodium 1 tab PO NEEDED PRN 05/28/21 07/18/21 50 mg tablet Lidocaine [Lidocaine 5% patch] 1 patch TOPICAL DAILY 06/03/21 07/18/21 ondansetron 4 mg disintegrating 4 mg PO Q8HP PRN tab 06/18/21 07/18/21 tablet Lurasidone HCl [Latuda] 40 mg PO DAILY 06/22/21 07/18/21 Venlafaxine HCl [Effexor XR 150mg] 150 mg PO DAILY 06/22/21 07/18/21 Ketoconazole 1 applic TP BID 07/18/21 07/18/21 Previous Rx's Medication Instructions Recorded pregabalin 300 mg capsule 300 mg PO BID PRN #60 cap 06/21/21 lorazepam 0.5 mg tablet 0.5 mg PO DAILY PRN #7 tab 07/16/21 oxycodone 5 mg tablet 5
[2021-07-22 20:58] LABS: Bacteria,Urine Trace /lpf; WBC,Urine Occasional #/hpf (0-3)
[2021-07-22 21:34] VITALS: BP 138/90; PULSE 78; RESP 18; TEMP 36.8; O2SAT 98
== END 2021-07-22 21:35 | disposition home or self-care (01) ==
PROVIDERS: Emergency Provider Emergency Medicine; PCP Family Medicine
DX: N39.0 Urinary tract infection, site not specified (principal); E78.5 Hyperlipidemia, unspecified; M79.7 Fibromyalgia; M19.90 Unspecified osteoarthritis, unspecified site; E07.9 Disorder of thyroid, unspecified; K86.1 Other chronic pancreatitis; E66.9 Obesity, unspecified; F41.9 Anxiety disorder, unspecified; F17.210 Nicotine dependence, cigarettes, uncomplicated; Z79.899 Other long term (current) drug therapy; Z88.6 Allergy status to analgesic agent; Z82.49 Family history of ischemic heart disease and other diseases of the circulatory system; Z68.37 Body mass index [BMI] 37.0-37.9, adult; Z80.9 Family history of malignant neoplasm, unspecified
CPT/HCPCS: 80305; 81001; 96372; 99284

== ENCOUNTER → 2021-07-24 10:55 | Outpatient (CLI) | payer BC, SELFPAY | PROVIDERS: PCP Family Medicine; Visit Provider Family Medicine | DX: Z20.822 Contact with and (suspected) exposure to COVID-19 (principal) | CPT/HCPCS: C9803; U0003; U0005 ==

== ENCOUNTER 2021-07-27 19:28 | Emergency (ER) | payer BC, SELFPAY ==
[2021-07-27 19:29] VITALS: BP 154/89; PULSE 116; RESP 18; TEMP 36.9; O2SAT 100; BMI 36.6
--- NOTE | 2021-07-27 20:31 | HMH.EDNVD ---
ED Disposition Clinical Impression: Abdominal pain Qualifiers: Abdominal location: generalized Qualified Code(s): R10.84 - Generalized abdominal pain Disposition: Home, Self-Care Condition on Discharge: Good Instructions: DI for Acute Abdominal Pain Additional Instructions: see pcp for follow up Referrals: Elmo Escobar MD [Primary Care Provider] - - Critical Care Critical Care Time: No Attestation: On 07/27/21, the high probability of a clinically significant, sudden or life threatening deterioration of the following system(s) required my full and direct attention, intervention and personal management. The time I documented below is in addition to time spent performing reported procedures but includes the following listed in this critical care notation. Medical Decision Making - Medical Records Medical records reviewed: Yes: I reviewed the patient's medical records. - Ramses Inquiry Pt receiving controlled substance: No Vital Signs: 07/27/21 19:29 Temperature 98.5 F Temperature Source Oral Pulse Rate [Left] 116 H Respiratory Rate 18 Blood Pressure [Right Arm] 154/89 H Blood Pressure Mean [Right Arm] 110 02 Sat by Pulse Oximetry 100 Oxygen Delivery Method Room Air Medical Decision Narrative: please follow up with pcp for follow up Nausea/Vomiting/Diarrhea HPI - General Chief complaint: Abdominal Pain Stated complaint: abd pain and vomiting Time Seen by Provider: 07/27/21 20:32 Mode of Arrival: Ambulatory Source of Information: Patient, Parent(s), Medical Record Limitations: No Limitations Description of Symptoms (Recalled from ER Triage Doc. by RN): pt states she is having a flare up of pancreatitis PT states im in so much pain and throwing up pt has epigastric pain that radiates to the back. pt states to have had all her pain meds this afternoon at 5pm including oxy 5mg, 1000mg tylenol, two 725mg methocarbomol and 800mg motrin - History of Present Illness HPI Narrative: acute exacerbation of ongoing abd pain complaint: nausea, abdominal pain Onset (ago): hour(s) Associated Abdominal Pain: Yes Location of pain: epigastric Severity: moderate Consistency: intermittent Associated symptoms: denies other symptoms - Related Data Home Medications Medication Instructions Recorded Confirmed diclofenac sodium 1 % topical gel 2 g TP QID g 11/26/20 07/23/21 hydroxyzine pamoate 50 mg capsule 50 mg PO DAILY cap 05/28/21 07/23/21 polyethylene glycol 3350 17 17 g PO DAILY g 05/28/21 07/23/21 gram/dose oral powder sennosides 8.6 mg-docusate sodium 1 tab PO NEEDED PRN 05/28/21 07/23/21 50 mg tablet Lidocaine [Lidocaine 5% patch] 1 patch TP DAILY 06/03/21 07/23/21 ondansetron 4 mg disintegrating 4 mg PO Q8HP PRN tab 06/18/21 07/23/21 tablet Lurasidone HCl [Latuda] 40 mg PO DAILY 06/22/21 07/23/21 Venlafaxine HCl [Effexor XR 150mg] 150 mg PO DAILY 06/22/21 07/23/21 Ketoconazole 1 applic TP BID 07/18/21 07/23/21 Previous Rx's Medication Instructions Recorded lorazepam 0.5 mg tablet 0.5 mg PO DAILY PRN #7 tab 07/23/21 oxycodone 5 mg tablet See Rx Instructions .ROUTE 07/23/21 .COMPLEX PRN #24 tab pregabalin 300 mg capsule 300 mg PO BID PRN #30 cap 07/23/21 Allergies Allergy/AdvReac Type Severity Reaction Status Date / Time tramadol Allergy Mild Rash Verified 07/23/21 15:11 morphine AdvReac stomach Verified 07/23/21 15:11 pains [facility] History - Hepatitis A Screen Attestation statement:: This patient has been screened for Hepatitis A risk factors. I have reviewed the patient's past medical history: Yes Medical History: Reports:: Anxiety, Hyperlipidemia, Urinary Tract Infection Denies:: Cancer, Diabetes Mellitus Type 1, Diabetes Mellitus Type 2, MRSA, Seizures Other Medical History: Reports: Arthritis, Fibromyalgia, Thyroid Disease, Other Comment: obesity, pancreatitis Other Surgeries: Yes: Cholecystectomy, Dilation and Curettage. No: Amp
[2021-07-27 21:10] VITALS: BP 154/89; PULSE 88; RESP 18; TEMP 36.9; O2SAT 99
== END 2021-07-27 21:13 | disposition home or self-care (01) ==
PROVIDERS: Emergency Provider Student in an Organized Health Care Education/Training Program; PCP Family Medicine
DX: R10.84 Generalized abdominal pain (principal); Z79.899 Other long term (current) drug therapy; Z88.5 Allergy status to narcotic agent; F41.9 Anxiety disorder, unspecified; E78.5 Hyperlipidemia, unspecified; Z72.0 Tobacco use; M19.90 Unspecified osteoarthritis, unspecified site; E07.9 Disorder of thyroid, unspecified; M79.7 Fibromyalgia
CPT/HCPCS: 96374; 96375; 99284

== ENCOUNTER 2021-07-29 21:04 | Emergency (ER) | payer BC, SELFPAY ==
[2021-07-29 21:05] VITALS: BP 155/89; PULSE 91; RESP 20; TEMP 36.9; O2SAT 100; BMI 35.7
--- NOTE | 2021-07-29 21:55 | HMH.EDNVD ---
ED Disposition Clinical Impression: Abdominal pain Qualifiers: Abdominal location: generalized Qualified Code(s): R10.84 - Generalized abdominal pain Disposition: Home, Self-Care Condition on Discharge: Good Instructions: DI for Acute Abdominal Pain Additional Instructions: see pcp for follow up Referrals: Elmo Escobar MD [Primary Care Provider] - - Critical Care Critical Care Time: No Attestation: On 07/29/21, the high probability of a clinically significant, sudden or life threatening deterioration of the following system(s) required my full and direct attention, intervention and personal management. The time I documented below is in addition to time spent performing reported procedures but includes the following listed in this critical care notation. Medical Decision Making - Medical Records Medical records reviewed: Yes: I reviewed the patient's medical records. - Ramses Inquiry Pt receiving controlled substance: No Vital Signs: 07/29/21 21:05 Temperature 98.5 F Temperature Source Oral Pulse Rate [Left] 91 H Respiratory Rate 20 Blood Pressure [Right Arm] 155/89 H Blood Pressure Mean [Right Arm] 111 02 Sat by Pulse Oximetry 100 Oxygen Delivery Method Room Air - Lab Data Lab results reviewed: Yes: I reviewed the patient's lab results. Medical Decision Narrative: pt with acute exacerbation of abd pain Nausea/Vomiting/Diarrhea HPI - General Chief complaint: Abdominal Pain Stated complaint: Abd&Back Pain Time Seen by Provider: 07/29/21 21:45 Mode of Arrival: Ambulatory Source of Information: Patient, Medical Record Limitations: No Limitations Description of Symptoms (Recalled from ER Triage Doc. by RN): pt presents with abd pain that started thursday and has never went away pt states that at 5pm the pain started to radiate around to her back - History of Present Illness HPI Narrative: acute exacerbation of ongoing abd pain - has seen pcp and pain center - reports compliant with meds - MD complaint: nausea, abdominal pain Onset (ago): hour(s) Associated Abdominal Pain: Yes Location of pain: diffuse Severity: similar to previous episodes Quality: cramping Consistency: intermittent Associated symptoms: denies other symptoms - Related Data Home Medications Medication Instructions Recorded Confirmed diclofenac sodium 1 % topical gel 2 g TP QID g 11/26/20 07/23/21 hydroxyzine pamoate 50 mg capsule 50 mg PO DAILY cap 05/28/21 07/23/21 polyethylene glycol 3350 17 17 g PO DAILY g 05/28/21 07/23/21 gram/dose oral powder sennosides 8.6 mg-docusate sodium 1 tab PO NEEDED PRN 05/28/21 07/23/21 50 mg tablet Lidocaine [Lidocaine 5% patch] 1 patch TP DAILY 06/03/21 07/23/21 ondansetron 4 mg disintegrating 4 mg PO Q8HP PRN tab 06/18/21 07/23/21 tablet Lurasidone HCl [Latuda] 40 mg PO DAILY 06/22/21 07/23/21 Venlafaxine HCl [Effexor XR 150mg] 150 mg PO DAILY 06/22/21 07/23/21 Ketoconazole 1 applic TP BID 07/18/21 07/23/21 Previous Rx's Medication Instructions Recorded lorazepam 0.5 mg tablet 0.5 mg PO DAILY PRN #7 tab 07/23/21 oxycodone 5 mg tablet See Rx Instructions .ROUTE 07/23/21 .COMPLEX PRN #24 tab pregabalin 300 mg capsule 300 mg PO BID PRN #30 cap 07/23/21 Allergies Allergy/AdvReac Type Severity Reaction Status Date / Time tramadol Allergy Mild Rash Verified 07/23/21 15:11 morphine AdvReac stomach Verified 07/23/21 15:11 pains [facility] History - Hepatitis A Screen Attestation statement:: This patient has been screened for Hepatitis A risk factors. I have reviewed the patient's past medical history: Yes Medical History: Reports:: Anxiety, Hyperlipidemia, Urinary Tract Infection Denies:: Cancer, Diabetes Mellitus Type 1, Diabetes Mellitus Type 2, MRSA, Seizures Other Medical History: Reports: Arthritis, Fibromyalgia, Thyroid Disease, Other Comment: obesity, pancreatitis Other Surgeries: Yes: Cholecystectomy, Dilation and Curettage. No: C-sect
[2021-07-29 22:31] VITALS: BP 155/89; PULSE 91; RESP 18; TEMP 36.9; O2SAT 98
== END 2021-07-29 22:37 | disposition home or self-care (01) ==
PROVIDERS: Emergency Provider Emergency Medicine; PCP Family Medicine
DX: R10.84 Generalized abdominal pain (principal); Z79.899 Other long term (current) drug therapy; Z88.5 Allergy status to narcotic agent; F41.9 Anxiety disorder, unspecified; E78.5 Hyperlipidemia, unspecified; Z72.0 Tobacco use
CPT/HCPCS: 96372; 99283

== ENCOUNTER 2021-08-15 22:12 | Emergency (ER) | payer BC, SELFPAY ==
[2021-08-15 22:50] VITALS: BP 149/97; PULSE 105; RESP 18; TEMP 36.8; O2SAT 97; BMI 34.6
[2021-08-15 23:13] LABS: Basophils # 0.2 K/mm3 (0-0.2); Basophils % 2.2 % (0.1-2.0); Eosinophils % 0.2 % (0.1-12.0); Hematocrit 39.1 % (37.0-47.0); Hemoglobin 12.6 g/dL (12.2-16.2); Lymphocytes % 26.1 % (10-50); Mean Corpuscular HGB Conc 32.2 g/dL (31.8-35.4); Mean Corpuscular Hemoglobin 27.5 pg (27.0-31.2); Mean Corpuscular Volume 85.4 fl (81-99); Mean Platelet Volume 8.4 fl (7.4-10.4); Monocytes # 0.4 K/mm3 (0.1-1.0); Monocytes % 4.7 % (1.7-9.3); Neutrophils # 5.2 K/mm3 (1.8-7.8); Neutrophils % 66.7 % (37.0-80.0); Platelet Count 212 K/mm3 (142-424); Red Blood Count 4.58 M/mm3 (4.20-5.40); Red Cell Distribution Width 15.3 % (11.5-17.5); White Blood Count 7.7 K/mm3 (4.8-10.8)
[2021-08-15 23:17] LABS: Chloride 100 mmol/L (98-107)
[2021-08-15 23:18] LABS: Potassium 3.7 mmoL/L (3.5-5.1); Sodium 135 mmol/L (136-145)
[2021-08-15 23:20] LABS: Alanine Aminotransferase 35 U/L (12-78); Alkaline Phosphatase 116 U/L (38-126); Amylase 83 U/L (30-110); Anion Gap 10.7 mEq/L (5-15); Aspartate Amino Transferase 43 U/L (14-36); Bilirubin,Total 0.4 mg/dl (0.2-1.3); Blood Urea Nitrogen 4 mg/dl (7-17); Calcium 9.2 mg/dl (8.4-10.2); Carbon Dioxide 28 mmol/L (22.0-30.0); Creatinine Clearance Estimated 197 mL/min (50-200); Estimated Glomerular Filt Rate 114 ml/min (>60); GFR (African American) 138 ML/MIN (>60); Glucose 107 mg/dl (74-100); Lipase 163 U/L (23-300)
[2021-08-15 23:21] LABS: Albumin Level 4.4 g/dl (3.5-5.0); Albumin/Globulin Ratio 1.5 (1.1-1.8); Total Protein,Serum 7.4 g/dl (6.3-8.2)
--- NOTE | 2021-08-15 23:34 | HMH.EDNVD ---
ED Disposition Clinical Impression: Abdominal pain Qualifiers: Abdominal location: left upper quadrant Qualified Code(s): R10.12 - Left upper quadrant pain Disposition: Home, Self-Care Condition on Discharge: Good Instructions: DI for Acute Abdominal Pain Additional Instructions: call pcp for follow up Referrals: Elmo Escobar MD [Primary Care Provider] - - Critical Care Critical Care Time: No Attestation: On 08/15/21, the high probability of a clinically significant, sudden or life threatening deterioration of the following system(s) required my full and direct attention, intervention and personal management. The time I documented below is in addition to time spent performing reported procedures but includes the following listed in this critical care notation. Medical Decision Making - Medical Records Medical records reviewed: Yes: I reviewed the patient's medical records. - Ramses Inquiry Pt receiving controlled substance: No Vital Signs: 08/15/21 22:50 08/15/21 23:35 Temperature 98.2 F Temperature Source Oral Pulse Rate 110 H Pulse Rate [Apical] 105 H Respiratory Rate 18 Blood Pressure 151/98 H Blood Pressure [Right Arm] 149/97 H Blood Pressure Mean [Right Arm] 114 Blood Pressure Source [Right Arm] Automatic Cuff Blood Pressure Position [Right Arm] Sitting 02 Sat by Pulse Oximetry 97 95 Oxygen Delivery Method Room Air Room Air - Lab Data Lab results reviewed: Yes: I reviewed the patient's lab results. Lab Results 08/15/21 23:10: WBC 7.7, RBC 4.58, Hgb 12.6, Hct 39.1, MCV 85.4, MCH 27.5, MCHC 32.2, RDW 15.3, Plt Count 212, MPV 8.4, Neut % (Auto) 66.7, Lymph % (Auto) 26.1, [place] % (Auto) 4.7, Eos % (Auto) 0.2, Baso % (Auto) 2.2 H, Neut # (Auto) 5.2, Lymph # (Auto) 2.0, [place] # (Auto) 0.4, Eos # (Auto) 0.0, Baso # (Auto) 0.2 08/15/21 23:10: Sodium 135 L, Potassium 3.7, Chloride 100, Carbon Dioxide 28, Anion Gap 10.7, BUN 4 L, Creatinine 0.60, Estimated Creat Clear 197, Estimated GFR 114, Est GFR ( Amer) 138, Glucose 107 H, Calcium 9.2, Total Bilirubin 0.4, AST 43 H, ALT 35, Alkaline Phosphatase 116, Total Protein 7.4, Albumin 4.4, Globulin 3.0, Albumin/Globulin Ratio 1.5, Amylase 83, Lipase 163 Result diagrams: 08/15/21 23:10 08/15/21 23:10 Orders (Tests/Meds): ORDERS Category Date Time Status Urine , HCG Qual. Stat Lab 08/15/21 22:59 Ordered Medical Decision Narrative: acute exacerbation of ongoing abd pain Nausea/Vomiting/Diarrhea HPI - General Chief complaint: Abdominal Pain Stated complaint: ABD & bACK pAIN vOMITING Time Seen by Provider: 08/15/21 23:15 Mode of Arrival: Ambulatory Source of Information: Patient, Medical Record Limitations: No Limitations Description of Symptoms (Recalled from ER Triage Doc. by RN): Pt c/o abdominal pain that radiates into her left back. States that the pain is her typical pain, started at 1500, states she took her rx pain medication at 2100 but has not gotten any relief. - History of Present Illness HPI Narrative: pt with abd pain with hx of same - MD complaint: nausea, vomiting, abdominal pain Onset (ago): day(s) Associated Abdominal Pain: Yes Location of pain: LUQ Severity: moderate Consistency: intermittent Associated symptoms: denies other symptoms - Related Data Home Medications Medication Instructions Recorded Confirmed diclofenac sodium 1 % topical gel 2 g TP QID g 11/26/20 08/13/21 hydroxyzine pamoate 50 mg capsule 50 mg PO DAILY cap 05/28/21 08/13/21 polyethylene glycol 3350 17 17 g PO DAILY g 05/28/21 08/13/21 gram/dose oral powder sennosides 8.6 mg-docusate sodium 1 tab PO NEEDED PRN 05/28/21 08/13/21 50 mg tablet Lidocaine [Lidocaine 5% patch] 1 patch TP DAILY 06/03/21 08/13/21 Lurasidone HCl [Latuda] 40 mg PO DAILY 06/22/21 08/13/21 Venlafaxine HCl [Effexor XR 150mg] 150 mg PO DAILY 06/22/21 08/13/21 Ketoconazole 1 applic TP BID 07/18/21 08/13/21 Previous Rx's Medicat
[2021-08-15 23:35] VITALS: BP 151/98; PULSE 110; O2SAT 95
--- NOTE | 2021-08-15 23:40 | PC.NURSE ---
Pt crying and complaining of severe pain. Nurse notified.
[2021-08-16 00:07] LABS: HCG Qualitative, Serum Negative (Negative)
[2021-08-16 00:09] VITALS: BP 151/95; PULSE 88; RESP 18; TEMP 36.6; O2SAT 99
== END 2021-08-16 00:11 | disposition home or self-care (01) ==
PROVIDERS: Emergency Provider Emergency Medicine; PCP Family Medicine
DX: R10.12 Left upper quadrant pain (principal); M54.9 Dorsalgia, unspecified; R11.10 Vomiting, unspecified; Z79.899 Other long term (current) drug therapy; Z87.440 Personal history of urinary (tract) infections; Z88.5 Allergy status to narcotic agent; F41.9 Anxiety disorder, unspecified; E78.5 Hyperlipidemia, unspecified; M19.90 Unspecified osteoarthritis, unspecified site; E07.9 Disorder of thyroid, unspecified; M79.7 Fibromyalgia
CPT/HCPCS: 80053; 82150; 83690; 84703; 85025; 96372; 96374; 99284

== ENCOUNTER 2021-08-17 20:16 | Emergency (ER) | payer BC, SELFPAY ==
[2021-08-17 20:17] VITALS: BP 109/83; PULSE 110; RESP 18; TEMP 36.8; O2SAT 99; BMI 34.6
[2021-08-17 20:30] VITALS: BP 109/83; PULSE 107; O2SAT 97
--- NOTE | 2021-08-17 20:41 | HMH.EDGENADL ---
ED Disposition Clinical Impression: Chronic pancreatitis Qualifiers: Pancreatitis type: other Qualified Code(s): K86.1 - Other chronic pancreatitis Disposition: Home, Self-Care Condition on Discharge: Good Instructions: DI for Acute Abdominal Pain Referrals: Elmo Escobar MD [Primary Care Provider] - - Critical Care Critical Care Time: No Attestation: On , the high probability of a clinically significant, sudden or life threatening deterioration of the following system(s) required my full and direct attention, intervention and personal management. The time I documented below is in addition to time spent performing reported procedures but includes the following listed in this critical care notation. Medical Decision Making - Medical Records Medical records reviewed: Yes: I reviewed the patient's medical records. - Ramses Inquiry Pt receiving controlled substance: No Vital Signs: 08/17/21 20:17 08/17/21 20:30 08/17/21 21:00 Temperature 98.2 F Temperature Source Oral Pulse Rate 107 H 107 H Pulse Rate [Apical] 110 H Respiratory Rate 18 Blood Pressure 109/83 L 141/96 H Blood Pressure [Right Arm] 109/83 L Blood Pressure Mean 114 Blood Pressure Mean [Right Arm] 91 Blood Pressure Source Blood Pressure Source [Right Arm] Automatic Cuff Blood Pressure Position Blood Pressure Position [Right Arm] Sitting 02 Sat by Pulse Oximetry 99 97 Oxygen Delivery Method Room Air 08/17/21 21:30 08/17/21 22:17 Temperature 98.2 F Temperature Source Oral Pulse Rate 102 H 102 H Pulse Rate [Apical] Respiratory Rate 18 Blood Pressure 143/104 H 143/98 H Blood Pressure [Right Arm] Blood Pressure Mean 113 Blood Pressure Mean [Right Arm] Blood Pressure Source Automatic Cuff Blood Pressure Source [Right Arm] Blood Pressure Position Sitting Blood Pressure Position [Right Arm] 02 Sat by Pulse Oximetry Oxygen Delivery Method Room Air - Lab Data Lab results reviewed: Yes: I reviewed the patient's lab results. Orders (Tests/Meds): ED MEDICATIONS Discontinued Medications Generic Name Dose Route Start Last Admin Trade Name Freq PRN Reason Stop Dose Admin Hydromorphone HCl 1 mg 08/17/21 21:15 08/17/21 21:20 Hydromorphone 2mg/Ml Syringe IM 08/17/21 21:16 1 mg ONCE ONE Administration Promethazine HCl 25 mg 08/17/21 21:15 08/17/21 21:20 Promethazine Hcl 25mg/Ml 1ml Vial IM 08/17/21 21:16 25 mg ONCE ONE Administration Medical Decision Narrative: Patient is a 35-year-old female presenting with exacerbation of her symptoms of chronic pancreatitis. Differential diagnosis includes, but is not limited to, exacerbation of chronic pancreatitis pain, acute on chronic pancreatitis, dehydration, other intra-abdominal pathology. On initial exam, patient is hemodynamically stable though mildly tachycardic. Patient was to be evaluated with lab work but declined evaluation with labs. I believe that this is reasonable given she was evaluated 2 days ago and found to be appropriate for discharge. Patient requests symptomatic treatment. She was treated with 1 mg of IM Dilaudid, 25 mg of IM Phenergan. On reassessment, patient feels improved and is tolerating p.o. intake. Discharged with return precautions and recommendation for follow-up as scheduled. General Adult HPI - General Stated complaint: stomach pain and vomiting Time Seen by Provider: 08/17/21 20:40 - History of Present Illness HPI narrative: Patient is a 35-year-old female with a history of chronic pancreatitis presenting for chief complaint of epigastric abdominal pain with radiation to the left upper quadrant. Patient states this is chronic pain and unchanged in quality but states that it is worse today not responding to her home medication which include oxycodone, Tylenol and Robaxin. She was seen in the emergency department on 08/15 and had lab work done at that time which did not show acute abno
[2021-08-17 20:55] VITALS: BMI 34.6
[2021-08-17 21:00] VITALS: BP 141/96; PULSE 107
[2021-08-17 21:30] VITALS: BP 143/104; PULSE 102
[2021-08-17 22:17] VITALS: BP 143/98; PULSE 102; RESP 18; TEMP 36.8; O2SAT 98
== END 2021-08-17 22:35 | disposition home or self-care (01) ==
PROVIDERS: Emergency Provider Emergency Medicine; PCP Family Medicine
DX: K86.1 Other chronic pancreatitis (principal); F17.210 Nicotine dependence, cigarettes, uncomplicated; F41.9 Anxiety disorder, unspecified
CPT/HCPCS: 96372; 99283

== ENCOUNTER 2021-08-18 20:11 | Emergency (ER) | payer BC, SELFPAY ==
[2021-08-18 20:13] VITALS: BP 149/98; PULSE 98; RESP 17; TEMP 36.8; O2SAT 97; BMI 34.9
--- NOTE | 2021-08-18 20:50 | HMH.EDNVD ---
ED Disposition Clinical Impression: Abdominal pain Qualifiers: Abdominal location: generalized Qualified Code(s): R10.84 - Generalized abdominal pain Disposition: Home, Self-Care Condition on Discharge: Good Instructions: DI for Acute Abdominal Pain Additional Instructions: call pcp for follow up Referrals: Elmo Escobar MD [Primary Care Provider] - - Critical Care Critical Care Time: No Attestation: On 08/18/21, the high probability of a clinically significant, sudden or life threatening deterioration of the following system(s) required my full and direct attention, intervention and personal management. The time I documented below is in addition to time spent performing reported procedures but includes the following listed in this critical care notation. Medical Decision Making - Medical Records Medical records reviewed: Yes: I reviewed the patient's medical records. - Rasmes Inquiry Pt receiving controlled substance: No Vital Signs: 08/18/21 20:13 Temperature 98.3 F Temperature Source Oral Pulse Rate [Right] 98 H Respiratory Rate 17 Blood Pressure [Right Arm] 149/98 H Blood Pressure Mean [Right Arm] 115 Blood Pressure Source [Right Arm] Automatic Cuff 02 Sat by Pulse Oximetry 97 Oxygen Delivery Method Room Air - Lab Data Lab results reviewed: Yes: I reviewed the patient's lab results. Medical Decision Narrative: acute exacerbation of ongoing abd pain Nausea/Vomiting/Diarrhea HPI - General Chief complaint: Abdominal Pain Stated complaint: Abd&BackPain and vomiting Time Seen by Provider: 08/18/21 20:53 Mode of Arrival: Family Vehicle Source of Information: Patient, Parent(s), Medical Record Limitations: No Limitations Description of Symptoms (Recalled from ER Triage Doc. by RN): Pt c/o upper abd pain with nausea and vomiting. She was seen at this ER for this same reason on 08/15 & 08/17. States she will see pain clinic and Gastroenterology in August. - History of Present Illness HPI Narrative: pt with ongoing abd pain has seen pain center MD complaint: nausea, abdominal pain Onset (ago): hour(s) Associated Abdominal Pain: Yes Location of pain: diffuse Severity: moderate Quality: sharp Consistency: intermittent Associated symptoms: denies other symptoms - Related Data Home Medications Medication Instructions Recorded Confirmed diclofenac sodium 1 % topical gel 2 g TP QID g 11/26/20 08/17/21 hydroxyzine pamoate 50 mg capsule 50 mg PO DAILY cap 05/28/21 08/17/21 polyethylene glycol 3350 17 17 g PO DAILY g 05/28/21 08/17/21 gram/dose oral powder sennosides 8.6 mg-docusate sodium 1 tab PO NEEDED PRN 05/28/21 08/17/21 50 mg tablet Lidocaine [Lidocaine 5% patch] 1 patch TP DAILY 06/03/21 08/17/21 Lurasidone HCl [Latuda] 40 mg PO DAILY 06/22/21 08/17/21 Venlafaxine HCl [Effexor XR 150mg] 150 mg PO DAILY 06/22/21 08/17/21 Ketoconazole 1 applic TP BID 07/18/21 08/17/21 Previous Rx's Medication Instructions Recorded pregabalin 300 mg capsule 300 mg PO BID PRN #60 cap 07/30/21 ondansetron 4 mg disintegrating 4 mg PO Q8HP PRN #45 tab 08/06/21 tablet lorazepam 0.5 mg tablet 0.5 mg PO DAILY PRN #7 tab 08/13/21 oxycodone 5 mg tablet See Rx Instructions .ROUTE 08/13/21 .COMPLEX PRN #24 tab Allergies Allergy/AdvReac Type Severity Reaction Status Date / Time tramadol Allergy Mild Rash Verified 08/13/21 08:53 [facility] History - Hepatitis A Screen Attestation statement:: This patient has been screened for Hepatitis A risk factors. I have reviewed the patient's past medical history: Yes Medical History: Reports:: Anxiety, Hyperlipidemia, Urinary Tract Infection Denies:: Cancer, Diabetes Mellitus Type 1, Diabetes Mellitus Type 2, MRSA, Seizures Other Medical History: Reports: Arthritis, Fibromyalgia, Thyroid Disease, Other Comment: obesity, pancreatitis Other Surgeries: Yes: Cholecystectomy, Dilation and Curettage. No: Amputation: No Fractures: No
[2021-08-18 21:24] VITALS: BP 145/89; PULSE 87; RESP 18; TEMP 36.8; O2SAT 98
== END 2021-08-18 21:26 | disposition home or self-care (01) ==
PROVIDERS: Emergency Provider Emergency Medicine; PCP Family Medicine
DX: R10.84 Generalized abdominal pain (principal); R11.2 Nausea with vomiting, unspecified; Z79.899 Other long term (current) drug therapy; Z88.6 Allergy status to analgesic agent; E78.5 Hyperlipidemia, unspecified; F41.9 Anxiety disorder, unspecified; Z72.0 Tobacco use
CPT/HCPCS: 96372; 99283

== ENCOUNTER 2021-09-02 02:04 | Emergency (ER) | payer BC, SELFPAY ==
[2021-09-02 02:05] VITALS: BP 133/87; PULSE 97; RESP 18; TEMP 36.6; O2SAT 99; BMI 34.9
[2021-09-02 02:11] VITALS: BMI 34.9
--- NOTE | 2021-09-02 02:22 | PC.NURSE ---
Lab draw to left hand x 1 stick.
[2021-09-02 02:26] LABS: Microscopic, Urine URINE MICROSCOPIC (MICROSCOPIC)
[2021-09-02 02:27] LABS: Basophils # 0.1 K/mm3 (0-0.2); Basophils % 2.2 % (0.1-2.0); Eosinophils % 0.3 % (0.1-12.0); Hematocrit 38.2 % (37.0-47.0); Hemoglobin 12.1 g/dL (12.2-16.2); Lymphocytes # 2.1 K/mm3 (0.7-4.5); Lymphocytes % 33.5 % (10-50); Mean Corpuscular HGB Conc 31.6 g/dL (31.8-35.4); Mean Corpuscular Hemoglobin 26.9 pg (27.0-31.2); Mean Platelet Volume 7.9 fl (7.4-10.4); Monocytes # 0.3 K/mm3 (0.1-1.0); Monocytes % 4.3 % (1.7-9.3); Neutrophils # 3.8 K/mm3 (1.8-7.8); Neutrophils % 59.7 % (37.0-80.0); Platelet Count 359 K/mm3 (142-424); Red Cell Distribution Width 15.7 % (11.5-17.5); White Blood Count 6.3 K/mm3 (4.8-10.8)
--- NOTE | 2021-09-02 02:30 | HMH.EDNVD ---
ED Disposition Clinical Impression: Abdominal pain Qualifiers: Abdominal location: unspecified location Qualified Code(s): R10.9 - Unspecified abdominal pain Disposition: Home, Self-Care Condition on Discharge: Good Instructions: DI for Acute Abdominal Pain Additional Instructions: call pcp for follow up Referrals: Elmo Escobar MD [Primary Care Provider] - - Critical Care Critical Care Time: No Attestation: On 09/02/21, the high probability of a clinically significant, sudden or life threatening deterioration of the following system(s) required my full and direct attention, intervention and personal management. The time I documented below is in addition to time spent performing reported procedures but includes the following listed in this critical care notation. Medical Decision Making - Medical Records Medical records reviewed: Yes: I reviewed the patient's medical records. - Ramses Inquiry Pt receiving controlled substance: No Vital Signs: 09/02/21 02:05 Temperature 97.9 F Temperature Source Oral Pulse Rate [Right] 97 H Respiratory Rate 18 Blood Pressure [Right Arm] 133/87 Blood Pressure Mean [Right Arm] 102 02 Sat by Pulse Oximetry 99 - Lab Data Lab results reviewed: Yes: I reviewed the patient's lab results. Lab Results 09/02/21 02:04: Urine Color Yellow, Urine Appearance Clear, Urine pH 6.0, Ur Specific [place] >= 1.030, Urine Protein Negative, Urine Glucose (UA) Negative, Urine Ketones Negative, Urine Blood Negative, Urine Nitrate Negative, Urine Bilirubin Negative, Urine Urobilinogen 0.2, Ur Leukocyte Esterase Negative 09/02/21 02:20: WBC 6.3, RBC 4.50, Hgb 12.1 L, Hct 38.2, MCV 85.0, MCH 26.9 L, MCHC 31.6 L, RDW 15.7, Plt Count 359, MPV 7.9, Neut % (Auto) 59.7, Lymph % (Auto) 33.5, [place] % (Auto) 4.3, Eos % (Auto) 0.3, Baso % (Auto) 2.2 H, Neut # (Auto) 3.8, Lymph # (Auto) 2.1, [place] # (Auto) 0.3, Eos # (Auto) 0.0, Baso # (Auto) 0.1 09/02/21 02:20: Sodium 138, Potassium 3.6, Chloride 106, Carbon Dioxide 23, Anion Gap 12.6, BUN 12, Creatinine 0.50 L, Estimated Creat Clear 238, Estimated GFR 141, Est GFR ( Amer) 171, Glucose 115 H, Calcium 8.7, Total Bilirubin 0.2, AST 27, ALT 23, Alkaline Phosphatase 103, Total Protein 6.3, Albumin 3.8, Globulin 2.5, Albumin/Globulin Ratio 1.5, Amylase 93, Lipase 197 Result diagrams: 09/02/21 02:20 09/02/21 02:20 Orders (Tests/Meds): ORDERS Category Date Time Status Urinalysis and Microscopic Stat Lab 09/02/21 02:04 Results Urine , HCG Qual. Stat Lab 09/02/21 02:04 Received Medical Decision Narrative: stable labs and exam- Nausea/Vomiting/Diarrhea HPI - General Chief complaint: Abdominal Pain Stated complaint: abd pain Time Seen by Provider: 09/02/21 02:30 Mode of Arrival: Ambulatory Source of Information: Patient, Medical Record Limitations: No Limitations Description of Symptoms (Recalled from ER Triage Doc. by RN): pt c/o abd pain that radiating to back since thursday. - History of Present Illness HPI Narrative: acute exacerbation of ongoing abd pain complaint: nausea Onset (ago): day(s) Associated Abdominal Pain: Yes Location of pain: diffuse Severity: moderate Associated symptoms: denies other symptoms - Related Data Home Medications Medication Instructions Recorded Confirmed diclofenac sodium 1 % topical gel 2 g TP QID g 11/26/20 08/20/21 hydroxyzine pamoate 50 mg capsule 50 mg PO DAILY cap 05/28/21 08/20/21 polyethylene glycol 3350 17 17 g PO DAILY g 05/28/21 08/20/21 gram/dose oral powder sennosides 8.6 mg-docusate sodium 1 tab PO NEEDED PRN 05/28/21 08/20/21 50 mg tablet Lidocaine [Lidocaine 5% patch] 1 patch TP DAILY 06/03/21 08/20/21 Lurasidone HCl [Latuda] 40 mg PO DAILY 06/22/21 08/20/21 Venlafaxine HCl [Effexor XR 150mg] 150 mg PO DAILY 06/22/21 08/20/21 Ketoconazole 1 applic TP BID 07/18/21 08/20/21 Previous Rx's Medication Instructions Recorded pregabalin 300 mg caps
[2021-09-02 02:36] LABS: Chloride 106 mmol/L (98-107)
[2021-09-02 02:37] LABS: Potassium 3.6 mmoL/L (3.5-5.1); Sodium 138 mmol/L (136-145)
[2021-09-02 02:39] LABS: Amylase 93 U/L (30-110); Blood Urea Nitrogen 12 mg/dl (7-17); Creatinine Clearance Estimated 238 mL/min (50-200); Estimated Glomerular Filt Rate 141 ml/min (>60); GFR (African American) 171 ML/MIN (>60)
[2021-09-02 02:40] LABS: Alanine Aminotransferase 23 U/L (12-78); Albumin Level 3.8 g/dl (3.5-5.0); Albumin/Globulin Ratio 1.5 (1.1-1.8); Alkaline Phosphatase 103 U/L (38-126); Anion Gap 12.6 mEq/L (5-15); Aspartate Amino Transferase 27 U/L (14-36); Bilirubin,Total 0.2 mg/dl (0.2-1.3); Calcium 8.7 mg/dl (8.4-10.2); Carbon Dioxide 23 mmol/L (22.0-30.0); Globulin 2.5 g/dL (1.3-3.2); Glucose 115 mg/dl (74-100); Lipase 197 U/L (23-300); Total Protein,Serum 6.3 g/dl (6.3-8.2)
[2021-09-02 03:02] LABS: Appearance,Urine CLEAR (Clear); Bilirubin,Urine Negative (Negative); Blood, Urine Negative (Negative); Color,Urine YELLOW (Yellow); Glucose,Urine (UA) Negative (Negative); Ketones,Urine Negative (Negative); Leukocyte Esterase,Urine Negative (Negative); Nitrate,Urine Negative (Negative); Protein,Urine Negative (Negative); Specific Gravity, Urine >= 1.030 (1.005-1.030); Urobilinogen,Urine 0.2 EU/dl (0.2)
[2021-09-02 03:08] LABS: Urine Pregnancy, HCG Qual. Negative (Negative); WBC,Urine Occasional #/hpf (0-3)
[2021-09-02 03:13] VITALS: BP 130/85; PULSE 89; RESP 18; TEMP 36.8; O2SAT 97
== END 2021-09-02 03:19 | disposition home or self-care (01) ==
PROVIDERS: Emergency Provider Emergency Medicine; PCP Family Medicine
DX: R10.9 Unspecified abdominal pain (principal)
CPT/HCPCS: 80053; 81001; 81025; 82150; 83690; 85025; 96374; 96375; 99284

== ENCOUNTER 2021-09-05 20:29 | Emergency (ER) | payer BC, SELFPAY ==
[2021-09-05 20:30] VITALS: BP 150/96; PULSE 90; RESP 16; TEMP 36.8; O2SAT 100; BMI 36.6
--- NOTE | 2021-09-05 21:48 | PC.NURSE ---
PT UPDATED WITH EXPECTED WAIT TIMES.
--- NOTE | 2021-09-05 21:57 | HMH.EDNVD ---
ED Disposition Clinical Impression: Abdominal pain Qualifiers: Abdominal location: generalized Qualified Code(s): R10.84 - Generalized abdominal pain Disposition: Home, Self-Care Condition on Discharge: Good Instructions: DI for Acute Abdominal Pain Additional Instructions: call pcp in am Referrals: Elmo Escobar MD [Primary Care Provider] - - Critical Care Critical Care Time: No Attestation: On 09/05/21, the high probability of a clinically significant, sudden or life threatening deterioration of the following system(s) required my full and direct attention, intervention and personal management. The time I documented below is in addition to time spent performing reported procedures but includes the following listed in this critical care notation. Medical Decision Making - Medical Records Medical records reviewed: Yes: I reviewed the patient's medical records. - Ramses Inquiry Pt receiving controlled substance: No Vital Signs: 09/05/21 20:30 Temperature 98.3 F Temperature Source Oral Pulse Rate [Left Radial] 90 Respiratory Rate 16 Blood Pressure [Right Arm] 150/96 H Blood Pressure Mean [Right Arm] 114 Blood Pressure Source [Right Arm] Automatic Cuff Blood Pressure Position [Right Arm] Sitting 02 Sat by Pulse Oximetry 100 Oxygen Delivery Method Room Air - Lab Data Lab results reviewed: Yes: I reviewed the patient's lab results. Medical Decision Narrative: stable exam and will have pt call pcp Nausea/Vomiting/Diarrhea HPI - General Chief complaint: Abdominal Pain Stated complaint: abd pain,vomiting Time Seen by Provider: 09/05/21 21:00 Mode of Arrival: Ambulatory Source of Information: Patient, Medical Record Limitations: No Limitations Description of Symptoms (Recalled from ER Triage Doc. by RN): HX OF PANCREATITIS AND HOME MEDICATIONS ARE NOT CONTROLLING HER ABDOMINAL PAIN. RATES 12/02. ALSO HAS HAD A NOSE BLEED AND WANTS HER NOSE LOOKED AT. - History of Present Illness HPI Narrative: acute exacerbation of ongoing abd pain - hsd no fever but has nasal congestion complaint: nausea, vomiting, abdominal pain Onset (ago): day(s) Associated Abdominal Pain: Yes Location of pain: diffuse Severity: moderate Associated symptoms: denies other symptoms - Related Data Home Medications Medication Instructions Recorded Confirmed diclofenac sodium 1 % topical gel 2 g TP QID g 11/26/20 09/03/21 hydroxyzine pamoate 50 mg capsule 50 mg PO DAILY cap 05/28/21 09/03/21 polyethylene glycol 3350 17 17 g PO DAILY g 05/28/21 09/03/21 gram/dose oral powder sennosides 8.6 mg-docusate sodium 1 tab PO NEEDED PRN 05/28/21 09/03/21 50 mg tablet Lidocaine [Lidocaine 5% patch] 1 patch TP DAILY 06/03/21 09/03/21 Ketoconazole 1 applic TP BID 07/18/21 09/03/21 Previous Rx's Medication Instructions Recorded ondansetron 4 mg disintegrating 4 mg PO Q8HP PRN #45 tab 08/06/21 tablet lorazepam 0.5 mg tablet 0.5 mg PO DAILY PRN #14 tab 08/20/21 lurasidone 40 mg tablet 40 mg PO DAILY #30 tab 09/03/21 oxycodone 5 mg tablet See Rx Instructions .ROUTE 09/03/21 .COMPLEX PRN #24 tab pregabalin 300 mg capsule 300 mg PO BID PRN #60 cap 09/03/21 venlafaxine 150 mg 150 mg PO DAILY #30 cap 09/03/21 capsule,extended release 24 hr Allergies Allergy/AdvReac Type Severity Reaction Status Date / Time tramadol Allergy Mild Rash Verified 09/03/21 08:21 [facility] History - Hepatitis A Screen Attestation statement:: This patient has been screened for Hepatitis A risk factors. I have reviewed the patient's past medical history: Yes Medical History: Reports:: Anxiety, Hyperlipidemia, Urinary Tract Infection Denies:: Cancer, Diabetes Mellitus Type 1, Diabetes Mellitus Type 2, MRSA, Seizures Other Medical History: Reports: Arthritis, Fibromyalgia, Thyroid Disease, Other Comment: obesity, pancreatitis Other Surgeries: Yes: Cholecystectomy, Dilation and Curettage. No: Amputation: No Fract
[2021-09-05 22:05] VITALS: BP 155/99; PULSE 89; RESP 18; TEMP 36.8; O2SAT 99
== END 2021-09-05 22:14 | disposition home or self-care (01) ==
PROVIDERS: Emergency Provider Emergency Medicine; PCP Family Medicine
DX: R10.84 Generalized abdominal pain (principal); R11.10 Vomiting, unspecified; R04.0 Epistaxis
CPT/HCPCS: 96372; 99283

== ENCOUNTER 2021-09-07 20:21 | Emergency (ER) | payer BC, SELFPAY ==
[2021-09-07 20:22] VITALS: BP 182/109; PULSE 79; RESP 18; TEMP 37.1; O2SAT 98; BMI 37.3
--- NOTE | 2021-09-07 23:09 | HMH.EDNVD ---
ED Disposition Clinical Impression: Abdominal pain Qualifiers: Abdominal location: generalized Qualified Code(s): R10.84 - Generalized abdominal pain Disposition: Home, Self-Care Condition on Discharge: Good Instructions: DI for Acute Abdominal Pain Additional Instructions: call pcp for follow up Referrals: Elmo Escobar MD [Primary Care Provider] - - Critical Care Critical Care Time: No Attestation: On 09/07/21, the high probability of a clinically significant, sudden or life threatening deterioration of the following system(s) required my full and direct attention, intervention and personal management. The time I documented below is in addition to time spent performing reported procedures but includes the following listed in this critical care notation. Medical Decision Making - Medical Records Medical records reviewed: Yes: I reviewed the patient's medical records. - Ramses Inquiry Pt receiving controlled substance: No Vital Signs: 09/07/21 20:22 Temperature 98.7 F Temperature Source Oral Pulse Rate [Left Radial] 79 Respiratory Rate 18 Blood Pressure [Right Arm] 182/109 H Blood Pressure Mean [Right Arm] 133 Blood Pressure Source [Right Arm] Automatic Cuff Blood Pressure Position [Right Arm] Sitting 02 Sat by Pulse Oximetry 98 Oxygen Delivery Method Room Air - Lab Data Lab results reviewed: Yes: I reviewed the patient's lab results. Orders (Tests/Meds): ED MEDICATIONS Discontinued Medications Generic Name Dose Route Start Last Admin Trade Name Eugeneq PRN Reason Stop Dose Admin Hydromorphone HCl 1 mg 09/07/21 23:07 Hydromorphone 2mg/Ml Syringe IM 09/07/21 23:08 ONCE ONE Promethazine HCl 25 mg 09/07/21 23:07 Promethazine Hcl 25mg/Ml 1ml Vial IM 09/07/21 23:08 ONCE ONE Medical Decision Narrative: has acute exacerbation of ongoing back pain Nausea/Vomiting/Diarrhea HPI - General Chief complaint: Abdominal Pain Stated complaint: abd pain Time Seen by Provider: 09/07/21 23:09 Mode of Arrival: Ambulatory Source of Information: Patient, Parent(s), Medical Record Limitations: No Limitations Description of Symptoms (Recalled from ER Triage Doc. by RN): CHRONIC PANCREATITIS; ABDOMINAL PAIN THAT IS NOT CONTROLLED WITH HER NORMAL MEDS. - History of Present Illness HPI Narrative: has ongoing abd pain which is daily and interferes with adl- pt has been compliant with meds - no new sx reported MD complaint: nausea, vomiting, abdominal pain Onset (ago): day(s) Associated Abdominal Pain: Yes Location of pain: diffuse Severity: similar to previous episodes Quality: cramping Associated symptoms: denies other symptoms - Related Data Home Medications Medication Instructions Recorded Confirmed diclofenac sodium 1 % topical gel 2 g TP QID g 11/26/20 09/03/21 hydroxyzine pamoate 50 mg capsule 50 mg PO DAILY cap 05/28/21 09/03/21 polyethylene glycol 3350 17 17 g PO DAILY g 05/28/21 09/03/21 gram/dose oral powder sennosides 8.6 mg-docusate sodium 1 tab PO NEEDED PRN 05/28/21 09/03/21 50 mg tablet Lidocaine [Lidocaine 5% patch] 1 patch TP DAILY 06/03/21 09/03/21 Ketoconazole 1 applic TP BID 07/18/21 09/03/21 Previous Rx's Medication Instructions Recorded ondansetron 4 mg disintegrating 4 mg PO Q8HP PRN #45 tab 08/06/21 tablet lorazepam 0.5 mg tablet 0.5 mg PO DAILY PRN #14 tab 08/20/21 lurasidone 40 mg tablet 40 mg PO DAILY #30 tab 09/03/21 oxycodone 5 mg tablet See Rx Instructions .ROUTE 09/03/21 .COMPLEX PRN #24 tab pregabalin 300 mg capsule 300 mg PO BID PRN #60 cap 09/03/21 venlafaxine 150 mg 150 mg PO DAILY #30 cap 09/03/21 capsule,extended release 24 hr Allergies Allergy/AdvReac Type Severity Reaction Status Date / Time tramadol Allergy Mild Rash Verified 09/03/21 08:21 [facility] History - Hepatitis A Screen Attestation statement:: This patient has been screened for Hepatitis A risk factors. I have reviewed the p
[2021-09-07 23:17] VITALS: BP 145/78; PULSE 70; RESP 18; TEMP 37.1; O2SAT 98
== END 2021-09-07 23:18 | disposition home or self-care (01) ==
PROVIDERS: Emergency Provider Emergency Medicine; PCP Family Medicine
DX: R10.84 Generalized abdominal pain (principal); F17.210 Nicotine dependence, cigarettes, uncomplicated
CPT/HCPCS: 96372; 99283

== ENCOUNTER 2021-09-09 20:21 | Emergency (ER) | payer BC, SELFPAY ==
[2021-09-09 20:23] VITALS: BP 123/89; PULSE 95; RESP 18; TEMP 37.1; O2SAT 97; BMI 36.6
[2021-09-09 21:24] VITALS: BP 137/83; PULSE 89; RESP 17; TEMP 36.9; O2SAT 98
--- NOTE | 2021-09-09 21:24 | HMH.EDNVD ---
ED Disposition Clinical Impression: Abdominal pain Qualifiers: Abdominal location: generalized Qualified Code(s): R10.84 - Generalized abdominal pain Disposition: Home, Self-Care Condition on Discharge: Good Instructions: DI for Acute Abdominal Pain Additional Instructions: see pcp in am Referrals: Elmo Escobar MD [Primary Care Provider] - - Critical Care Critical Care Time: No Attestation: On 09/09/21, the high probability of a clinically significant, sudden or life threatening deterioration of the following system(s) required my full and direct attention, intervention and personal management. The time I documented below is in addition to time spent performing reported procedures but includes the following listed in this critical care notation. Medical Decision Making - Medical Records Medical records reviewed: Yes: I reviewed the patient's medical records. - Ramses Inquiry Pt receiving controlled substance: No Vital Signs: 09/09/21 20:23 09/09/21 21:24 Temperature 98.7 F 98.5 F Temperature Source Oral Oral Pulse Rate 89 Pulse Rate [Right] 95 H Respiratory Rate 18 17 Blood Pressure 137/83 Blood Pressure [Right Arm] 123/89 Blood Pressure Mean [Right Arm] 100 02 Sat by Pulse Oximetry 97 Oxygen Delivery Method Room Air - Lab Data Lab results reviewed: Yes: I reviewed the patient's lab results. Orders (Tests/Meds): ED MEDICATIONS Discontinued Medications Generic Name Dose Route Start Last Admin Trade Name Freq PRN Reason Stop Dose Admin Hydromorphone HCl 1 mg 09/09/21 21:24 Hydromorphone 2mg/Ml Syringe IM 09/09/21 21:25 ONCE ONE Promethazine HCl 50 mg 09/09/21 21:24 Promethazine 50 Mg/Ml Vial IM 09/09/21 21:25 ONCE ONE Medical Decision Narrative: acute exacerbation of ongoing abd pain - has appt with pcp in am Nausea/Vomiting/Diarrhea HPI - General Chief complaint: Abdominal Pain Stated complaint: left abd around to back Time Seen by Provider: 09/09/21 21:24 Mode of Arrival: Ambulatory Source of Information: Patient, Parent(s), Medical Record Limitations: No Limitations Description of Symptoms (Recalled from ER Triage Doc. by RN): pt states having abd pain radiating to back that started thursday and progessive gotten worse. - History of Present Illness HPI Narrative: acute exacerbation of ongoing abd pain complaint: nausea, abdominal pain Onset (ago): hour(s) Associated Abdominal Pain: Yes Location of pain: diffuse Severity: similar to previous episodes Associated symptoms: denies other symptoms - Related Data Home Medications Medication Instructions Recorded Confirmed diclofenac sodium 1 % topical gel 2 g TP QID g 11/26/20 09/03/21 hydroxyzine pamoate 50 mg capsule 50 mg PO DAILY cap 05/28/21 09/03/21 polyethylene glycol 3350 17 17 g PO DAILY g 05/28/21 09/03/21 gram/dose oral powder sennosides 8.6 mg-docusate sodium 1 tab PO NEEDED PRN 05/28/21 09/03/21 50 mg tablet Lidocaine [Lidocaine 5% patch] 1 patch TP DAILY 06/03/21 09/03/21 Ketoconazole 1 applic TP BID 07/18/21 09/03/21 Previous Rx's Medication Instructions Recorded ondansetron 4 mg disintegrating 4 mg PO Q8HP PRN #45 tab 08/06/21 tablet lorazepam 0.5 mg tablet 0.5 mg PO DAILY PRN #14 tab 08/20/21 lurasidone 40 mg tablet 40 mg PO DAILY #30 tab 09/03/21 oxycodone 5 mg tablet See Rx Instructions .ROUTE 09/03/21 .COMPLEX PRN #24 tab pregabalin 300 mg capsule 300 mg PO BID PRN #60 cap 09/03/21 venlafaxine 150 mg 150 mg PO DAILY #30 cap 09/03/21 capsule,extended release 24 hr Allergies Allergy/AdvReac Type Severity Reaction Status Date / Time tramadol Allergy Mild Rash Verified 09/03/21 08:21 [facility] History - Hepatitis A Screen Attestation statement:: This patient has been screened for Hepatitis A risk factors. I have reviewed the patient's past medical history: Yes Medical History: Reports:: Anxiety, Hyperlipidemia, Urinary Tract
== END 2021-09-09 21:49 | disposition home or self-care (01) ==
PROVIDERS: Emergency Provider Emergency Medicine; PCP Family Medicine
DX: R10.84 Generalized abdominal pain (principal); Z79.899 Other long term (current) drug therapy; Z88.6 Allergy status to analgesic agent; F41.9 Anxiety disorder, unspecified; E78.5 Hyperlipidemia, unspecified; M19.90 Unspecified osteoarthritis, unspecified site; E07.9 Disorder of thyroid, unspecified; M79.7 Fibromyalgia; E66.9 Obesity, unspecified
CPT/HCPCS: 96372; 99283

== ENCOUNTER 2021-09-26 20:07 | Emergency (ER) | payer BC, SELFPAY ==
[2021-09-26 20:09] VITALS: BP 119/95; PULSE 100; RESP 18; TEMP 36.6; O2SAT 99; BMI 36.6
--- NOTE | 2021-09-26 20:47 | HMH.EDABDPAI ---
ED Disposition Clinical Impression: Chronic pancreatitis Qualifiers: Pancreatitis type: idiopathic Qualified Code(s): K86.1 - Other chronic pancreatitis Disposition: Home, Self-Care Condition on Discharge: Good Instructions: DI for Acute Abdominal Pain Referrals: Elmo Escobar MD [Primary Care Provider] - - Critical Care Critical Care Time: No Attestation: On 09/26/21, the high probability of a clinically significant, sudden or life threatening deterioration of the following system(s) required my full and direct attention, intervention and personal management. The time I documented below is in addition to time spent performing reported procedures but includes the following listed in this critical care notation. Medical Decision Making - Ramses Inquiry Pt receiving controlled substance: No Ramses was queried for this patient: No Vital Signs: 09/26/21 20:09 09/26/21 21:07 Temperature 97.8 F 97.8 F Temperature Source Oral Oral Pulse Rate 90 Pulse Rate [Right] 100 H Respiratory Rate 18 18 Blood Pressure 115/78 Blood Pressure [Right Arm] 119/95 H Blood Pressure Mean [Right Arm] 103 02 Sat by Pulse Oximetry 99 Orders (Tests/Meds): ED MEDICATIONS Discontinued Medications Generic Name Dose Route Start Last Admin Trade Name Freq PRN Reason Stop Dose Admin Hydromorphone HCl 2 mg 09/26/21 20:22 09/26/21 20:27 Hydromorphone 2mg/Ml Syringe IM 09/26/21 20:23 2 mg ONCE ONE Administration Promethazine HCl 50 mg 09/26/21 20:22 09/26/21 20:27 Promethazine 50 Mg/Ml Vial IM 09/26/21 20:23 Not Given ONCE ONE Promethazine HCl 25 mg 09/26/21 20:25 09/26/21 20:27 Promethazine Hcl 25mg/Ml 1ml Vial IM 09/26/21 20:26 25 mg ONCE ONE Administration Medical Decision Narrative: In review this is a 35-year-old female who presents with epigastric pain. Hemodynamically stable and nontoxic-appearing. Her physical exam is again pertinent for some epigastric pain. No other concerning findings. She reports that this feels exactly like all of her previous episodes and with it being chronic pancreatitis at home think she warrants even laboratory studies at this time as they will potentially not given the elevated so I will attempt to treat her with some IM Phenergan and then give her some oral Dilaudid to see if this will help with her symptoms. Patient reassessed and feels symptomatically improved and able to tolerate oral intake. Continued recommended home care of her chronic pancreatitis. Stable for discharge. Return precautions given. Abdominal Pain HPI - General Chief Complaint: Abdominal Pain Stated Complaint: STOMACH,AROUND TO LEFT SIDE BACK,VOMITING Time Seen by Provider: 09/26/21 20:15 Mode of Arrival: Ambulatory Limitations: No Limitations Description of Symptoms (Recalled from ER Triage Doc. by RN): pt c/o RUQ pain that radiating to back with n/v/d that started @ 11am - History of Present Illness HPI narrative: Patient is a 35-year-old female well-known to the emergency department with a past medical history of chronic pancreatitis who presents with epigastric pain. She says that around 11 AM this morning she started to get cute onset of abdominal pain. She says that it starts in her epigastrium and radiates to her back. She says that it feels exactly like all of her previous episodes of flareups of her chronic pancreatitis. She already has GI follow-up in place that she is getting definitive treatment for this. She denies any fever or chills. Denies any dysuria. - Related Data Home Medications Medication Instructions Recorded Confirmed diclofenac sodium 1 % topical gel 2 g TP QID g 11/26/20 09/26/21 hydroxyzine pamoate 50 mg capsule 50 mg PO DAILY cap 05/28/21 09/26/21 polyethylene glycol 3350 17 17 g PO DAILY g 05/28/21 09/26/21 gram/dose oral powder sennosides 8.6 mg-docusate sodium 1 tab PO NEEDED PRN 05/28/21 09/26/21 50 mg tablet Lidocain
[2021-09-26 21:07] VITALS: BP 115/78; PULSE 90; RESP 18; TEMP 36.6; O2SAT 99
== END 2021-09-26 21:15 | disposition home or self-care (01) ==
PROVIDERS: Emergency Provider Student in an Organized Health Care Education/Training Program; PCP Family Medicine
DX: K86.1 Other chronic pancreatitis (principal); Z79.899 Other long term (current) drug therapy; Z88.6 Allergy status to analgesic agent; F41.9 Anxiety disorder, unspecified; E10.9 Type 1 diabetes mellitus without complications; E78.5 Hyperlipidemia, unspecified; M19.90 Unspecified osteoarthritis, unspecified site; M79.7 Fibromyalgia; Z85.9 Personal history of malignant neoplasm, unspecified; Z87.440 Personal history of urinary (tract) infections; E66.9 Obesity, unspecified; Z68.36 Body mass index [BMI] 36.0-36.9, adult
CPT/HCPCS: 96372; 99283

== ENCOUNTER 2021-09-27 20:57 | Emergency (ER) | payer BC, SELFPAY ==
[2021-09-27 20:58] VITALS: BP 134/90; PULSE 93; RESP 20; TEMP 37.1; O2SAT 98; BMI 36.6
--- NOTE | 2021-09-27 23:01 | PC.NURSE ---
Pt given warm blanket. No other needs voiced at this time.
--- NOTE | 2021-09-27 23:40 | HMH.EDGENADL ---
ED Disposition Clinical Impression: Chronic pancreatitis Qualifiers: Pancreatitis type: unspecified pancreatitis type Qualified Code(s): K86.1 - Other chronic pancreatitis Disposition: Home, Self-Care Condition on Discharge: Fair Instructions: DI for Acute Abdominal Pain Prescriptions: Promethazine HCl [Phenergan 25mg tab] 25 mg PO Q6H PRN #10 tab PRN Reason: Nausea And Vomiting Transmission Status: Received by [facility] Referrals: Elmo Escobar MD [Primary Care Provider] - - Critical Care Critical Care Time: No Attestation: On 09/27/21, the high probability of a clinically significant, sudden or life threatening deterioration of the following system(s) required my full and direct attention, intervention and personal management. The time I documented below is in addition to time spent performing reported procedures but includes the following listed in this critical care notation. Medical Decision Making - Ramses Inquiry Pt receiving controlled substance: Yes Ramses was queried for this patient: No Risks and benefits of using a controlled substance: were discussed with pt by me Vital Signs: 09/27/21 20:58 09/28/21 00:19 Temperature 98.7 F 98.0 F Temperature Source Oral Oral Pulse Rate 79 Pulse Rate [Right] 93 H Respiratory Rate 20 17 Blood Pressure 134/85 Blood Pressure [Right Arm] 134/90 Blood Pressure Mean [Right Arm] 104 Blood Pressure Source [Right Arm] Automatic Cuff 02 Sat by Pulse Oximetry 98 Oxygen Delivery Method Room Air Room Air Orders (Tests/Meds): ED MEDICATIONS Discontinued Medications Generic Name Dose Route Start Last Admin Trade Name Freq PRN Reason Stop Dose Admin Hydromorphone HCl 2 mg 09/27/21 23:22 Hydromorphone Hcl 2 Mg Tablet PO 09/27/21 23:23 ONCE STA Promethazine HCl 50 mg 09/27/21 23:16 09/27/21 23:51 Promethazine 50 Mg/Ml Vial IM 09/27/21 23:17 50 mg ONCE ONE Administration Sodium Chloride 25 ml 09/27/21 23:16 Sodium Chloride 0.9% 25ml Bag IV 09/27/21 23:17 ONCE ONE Medical Decision Narrative: In review this is a 35-year-old female who presents with epigastric pain, nausea, vomiting. Hemodynamically stable and nontoxic-appearing. She is likely still suffering from a flareup of her chronic pancreatitis. I talked to her that we should potentially bring her into the hospital for management as its not the best to continue to try to treat her in the ED repeatedly. She says that she would like to try to manage this at home again so elected to give her some IM Phenergan and then some oral Dilaudid which helped her symptoms. She was unable to tolerate oral intake and would like to again try managing this at home. At this point stable for discharge. Return precautions given. General Adult HPI - General Chief complaint: Abdominal Pain Stated complaint: stomach, Left side around to back Time Seen by Provider: 09/27/21 22:00 Mode of Arrival: Family Vehicle Limitations: No Limitations Description of Symptoms (Recalled from ER Triage Doc. by RN): Pt c/o upper ABD pain. States it feels like I am being stabbed . She also c/o n/v/d. Denies fever or chills. Pt states Dr Escobar told me I had to come to the ER for fresh start . She has taken Oxycodone 5mg, Zofran 8mg, Tylenol 1,000mg, and Motrin 800mg and denies any relief. - History of Present Illness HPI narrative: Patient is a 35-year-old female with a history of chronic pancreatitis who is well-known to the emergency department. I saw her last night and she presents again with epigastric pain. She says that this continues to be like her normal chronic pancreatitis symptoms. She says that she tried to stay at home and manage her symptoms but she was unable to eat or drink much today. She rates the pain as a 10 out of 10. States that it is in her epigastrium and does radiate alert to her back. She says that she called her PCP who told her to come in for a fresh
[2021-09-28 00:19] VITALS: BP 134/85; PULSE 79; RESP 17; TEMP 36.7; O2SAT 99
== END 2021-09-28 00:24 | disposition home or self-care (01) ==
PROVIDERS: Emergency Provider Student in an Organized Health Care Education/Training Program; PCP Family Medicine
DX: K86.1 Other chronic pancreatitis (principal); Z79.899 Other long term (current) drug therapy; Z88.6 Allergy status to analgesic agent; E10.9 Type 1 diabetes mellitus without complications; E78.5 Hyperlipidemia, unspecified; F41.9 Anxiety disorder, unspecified; Z85.9 Personal history of malignant neoplasm, unspecified; M19.90 Unspecified osteoarthritis, unspecified site; M79.7 Fibromyalgia; E07.9 Disorder of thyroid, unspecified; Z72.0 Tobacco use
CPT/HCPCS: 96372; 99283

== ENCOUNTER 2021-09-28 19:43 | Emergency (ER) | payer BC, SELFPAY ==
--- NOTE | 2021-09-28 21:05 | PC.NURSE ---
went in to pts room and she was laying in the floor i directed her to get out of the floor she kep stating it hurt. I told her the hospital floor is not a good place and to please sit in the chair. pt in the chair with mother in the room. i advised them we would get her in a room as soon as one was avalible
[2021-09-28 21:06] VITALS: BP 161/91; PULSE 90; RESP 18; TEMP 36.6; O2SAT 98; BMI 36.6
--- NOTE | 2021-09-28 21:58 | PC.NURSE ---
Patients mother is pacing outside of triage room, I spoke to her and states that patient needs to be put into a room, I explained that we did not have any rooms available and that we would get her into a room as soon as possible. Mother is upset at this time, I again explained that we have no rooms available and that as soon as a room opens up we will get her in a room.
--- NOTE | 2021-09-28 22:35 | PC.NURSE ---
Pt was discovered laying down on the floor of triage room as this RN presented to room to give medication. Pt states the pain is so bad I feel like I am dying . She further states I need a doctor right now. The pill yesterday didn't work at all . Of note, pt's mother was also discovered with phone out in show of taking pictures. This RN educated pt & her mother that we can not take pictures or video of the ER hallway or nurses' station d/t possibility of HIPPA violation of other patients. welfare supervisor notified of this.
--- NOTE | 2021-09-28 22:40 | PC.NURSE ---
SPOKE WITH PATIENT AND PATIENT'S MOTHER REGARDING PICTURES AND VIDEO OF STAFF AND OTHER PATIENTS. MOTHER REPORTS TAKING PICTURES OF DAUGHTER ONLY. PATIENT COMPLAINS OF SEVERE PAIN AND REQUESTING TO SPEAK WITH ER DOCTOR. MD AWARE OF PATIENT COMPLAINT NEW ORDERS NOTED.
--- NOTE | 2021-09-28 22:44 | PC.NURSE ---
Dr. Prieto at pt's bedside for re-eval
--- NOTE | 2021-09-28 22:47 | CT_ITS ---
PROCEDURE INFORMATION: Exam: CT Abdomen And Pelvis With Contrast Exam date and time: 09/28/2021 11:24 PM Age: 35 years old Clinical indication: Abdominal pain; Prior surgery; Additional info: Abdominal pain, h/o pancreatitis TECHNIQUE: Imaging protocol: Computed tomography of the abdomen and pelvis with contrast. Total images: 302 Radiation optimization: All CT scans at this facility use at least one of these dose optimization techniques: automated exposure control; mA and/or kV adjustment per patient size (includes targeted exams where dose is matched to clinical indication); or iterative reconstruction. Contrast material: ISOVUE; Contrast volume: 75 ml; Contrast route: IV; COMPARISON: CT ABDOMEN PELVIS WO CON 08/06/2020 12:18 PM FINDINGS: Lungs: Clear lung bases. Mediastinal space: Gas within the thoracic esophageal lumen could be evidence of gastroesophageal reflux. Liver: Suspect hepatic steatosis. Gallbladder and bile ducts: Prior cholecystectomy noted. Pancreas: Normal. No ductal dilation. Spleen: 14 cm splenic long axis, consistent with mild splenomegaly. Adrenal glands: Normal. No mass. Kidneys and ureters: Normal. No hydronephrosis. Stomach and bowel: Prominent fluid in small bowel and colon suggestive of infectious/inflammatory enteritis/colitis. Appendix: Normal appendix. Intraperitoneal space: Unremarkable. No free air. No significant fluid collection. Vasculature: Unremarkable. No abdominal aortic aneurysm. Lymph nodes: Unremarkable. No enlarged lymph nodes. Urinary bladder: Unremarkable as visualized. Reproductive: Collapsing right ovarian physiologic follicle suspected. No follow-up imaging is recommended. Bones/joints: Unremarkable. No acute fracture. Soft tissues: Unchanged nonspecific 16 x 20 mm nodule in the medial right breast. IMPRESSION: 1. Prominent fluid in small bowel and colon suggestive of infectious/inflammatory enteritis/colitis. 2. Normal appendix. 3. Unchanged nonspecific 16 x 20 mm nodule in the medial right breast. Recommend nonemergent mammographic/breast ultrasound evaluation.
--- NOTE | 2021-09-28 22:48 | PC.NURSE ---
Pt educated on the need for urine sample and how to collect clean catch sample. pt stated her understanding. She was given cleaning wipes and cup.
--- NOTE | 2021-09-28 22:48 | HMH.EDGENADL ---
ED Disposition Clinical Impression: Colitis Disposition: Home, Self-Care Condition on Discharge: Fair Referrals: Elmo Escobar MD [Primary Care Provider] - - Critical Care Critical Care Time: No Attestation: On 09/28/21, the high probability of a clinically significant, sudden or life threatening deterioration of the following system(s) required my full and direct attention, intervention and personal management. The time I documented below is in addition to time spent performing reported procedures but includes the following listed in this critical care notation. Medical Decision Making - Medical Records Medical records reviewed: Yes: I reviewed the patient's medical records. - Ramses Inquiry Pt receiving controlled substance: Yes Ramses was queried for this patient: No Risks and benefits of using a controlled substance: were discussed with pt by me Vital Signs: 09/28/21 21:06 Temperature 97.9 F Temperature Source Oral Pulse Rate [Apical] 90 Respiratory Rate 18 Blood Pressure [Right Arm] 161/91 H Blood Pressure Mean [Right Arm] 114 Blood Pressure Source [Right Arm] Automatic Cuff Blood Pressure Position [Right Arm] Sitting 02 Sat by Pulse Oximetry 98 Oxygen Delivery Method Room Air - Lab Data Lab results reviewed: Yes: I reviewed the patient's lab results. Lab Results 09/28/21 22:50: Urine Color Svetlana, Urine Appearance Clear, Urine pH 6.5, Ur Specific [place] 1.020, Urine Protein 1+, Urine Glucose (UA) Negative, Urine Ketones Trace, Urine Blood Negative, Urine Nitrate Negative, Urine Bilirubin 1+ A, Urine Urobilinogen 1.0, Ur Leukocyte Esterase Negative, Urine RBC Occasional, Urine WBC 3-5, Ur Squamous Epith Cells 3-5, Urine Bacteria Trace 09/28/21 22:50: Urine Opiates Screen Positive H, Urine Methadone Screen Negative, Ur Barbituates Screen Negative, Ur Phencyclidine Scrn Negative, Ur Amphetamines Screen Negative, U Benzodiazepines Scrn Negative, Urine Cocaine Screen Negative, U Marijuana (THC) Screen Positive H 09/28/21 22:50: Urine HCG, Qual Negative 09/28/21 23:10: WBC 8.1, RBC 4.98, Hgb 13.3, Hct 41.5, MCV 83.3, MCH 26.6 L, MCHC 32.0, RDW 16.3, Plt Count 340, MPV 8.2, Neut % (Auto) 68.7, Lymph % (Auto) 24.8, Major % (Auto) 3.6, Eos % (Auto) 1.3, Baso % (Auto) 1.6, Neut # (Auto) 5.6, Lymph # (Auto) 2.0, Major # (Auto) 0.3, Eos # (Auto) 0.1, Baso # (Auto) 0.1 09/28/21 23:10: Sodium 138, Potassium 3.9, Chloride 104, Carbon Dioxide 27, Anion Gap 10.9, BUN 10, Creatinine 0.60, Estimated Creat Clear 208, Estimated GFR 114, Est GFR ( Amer) 138, Glucose 100, Calcium 9.7, Magnesium 1.9, Total Bilirubin 0.4, AST 32, ALT 31, Alkaline Phosphatase 156 H, C-Reactive Protein 9.0 H, Total Protein 7.5, Albumin 4.3, Globulin 3.2, Albumin/Globulin Ratio 1.3, Lipase 93, Procalcitonin < 0.030 Result diagrams: 09/28/21 23:10 09/28/21 23:10 Orders (Tests/Meds): ED MEDICATIONS Generic Name Dose Route Start Last Admin Trade Name Freq PRN Reason Stop Dose Admin Lactated Ringer's 1,000 mls @ 999 mls/hr 09/28/21 23:00 09/28/21 23:25 Lactated Ringer's 1000 Ml Bag IV 09/29/21 00:00 999 mls/hr .Q1H1M INO Administration Discontinued Medications Generic Name Dose Route Start Last Admin Trade Name Freq PRN Reason Stop Dose Admin Haloperidol Lactate 2.5 mg 09/29/21 00:55 09/29/21 01:15 Haloperidol Lactate 5 Mg/Ml Vial IV 09/29/21 00:56 2.5 mg ONCE ONE Administration Hydromorphone HCl 1 mg 09/28/21 21:15 09/28/21 23:18 Hydromorphone Hcl 2 Mg Tablet PO 09/28/21 21:16 1 mg ONCE ONE Administration Hydromorphone HCl 1 mg 09/29/21 00:18 09/29/21 02:36 Hydromorphone 2mg/Ml Syringe IV 09/29/21 00:19 1 mg ONCE ONE Administration Iopamidol 75 ml 09/28/21 23:36 09/28/21 23:37 Iopamidol-370 (76%);100ml Bottle IV 09/28/21 23:37 75 ml ONCE ONE Administration Promethazine HCl 50 mg 09/28/21 21:13 09/28/21 23:13 Promethazine Hcl 25mg/Ml 1ml Vial IM 09/28/21 21:14 Not G
[2021-09-28 22:57] LABS: Microscopic, Urine URINE MICROSCOPIC (MICROSCOPIC)
--- NOTE | 2021-09-28 23:00 | PC.NURSE ---
Called [facility], s/w Fox, to verify it is OK to break Dilaudid 2mg tab in half.
[2021-09-28 23:01] LABS: Appearance,Urine CLEAR (Clear); Blood, Urine Negative (Negative); Color,Urine AMBER (Yellow); Glucose,Urine (UA) Negative (Negative); Ketones,Urine TRACE (Negative); Leukocyte Esterase,Urine Negative (Negative); Nitrate,Urine Negative (Negative); PH,Urine 6.5 (5.0-8.5); Protein,Urine 1+ (Negative)
[2021-09-28 23:04] LABS: Bilirubin,Urine 1+ (Negative)
[2021-09-28 23:05] LABS: Bacteria,Urine Trace /lpf; RBC,Urine Occasional #/hpf (0-3)
[2021-09-28 23:12] LABS: Barbiturates Screen,Urine Negative ng/ml (<200)
[2021-09-28 23:13] LABS: Benzodiazepines Screen,Urine Negative ng/ml (<200)
[2021-09-28 23:14] LABS: Amphetamine/Metha Screen,Urine Negative ng/ml (<1000); Cannabinoid Screen,Urine Positive ng/ml (<50); Urine Pregnancy, HCG Qual. Negative (Negative)
[2021-09-28 23:15] LABS: Cocaine Screen,Urine Negative ng/ml (<300)
[2021-09-28 23:16] LABS: Methadone Screen,Urine Negative ng/ml (<300); Opiate Screen,Urine Positive ng/ml (<300)
--- NOTE | 2021-09-28 23:16 | PC.NURSE ---
Patient resting in bed with mother at bedside.
[2021-09-28 23:17] LABS: Phencyclidine Screen,Urine Negative ng/ml (<25)
[2021-09-28 23:25] LABS: Alanine Aminotransferase 31 U/L (12-78); Albumin Level 4.3 g/dl (3.5-5.0); Albumin/Globulin Ratio 1.3 (1.1-1.8); Alkaline Phosphatase 156 U/L (38-126); Anion Gap 10.9 mEq/L (5-15); Aspartate Amino Transferase 32 U/L (14-36); Bilirubin,Total 0.4 mg/dl (0.2-1.3); Blood Urea Nitrogen 10 mg/dl (7-17); Calcium 9.7 mg/dl (8.4-10.2); Carbon Dioxide 27 mmol/L (22.0-30.0); Chloride 104 mmol/L (98-107); Creatinine Clearance Estimated 208 mL/min (50-200); Estimated Glomerular Filt Rate 114 ml/min (>60); GFR (African American) 138 ML/MIN (>60); Globulin 3.2 g/dL (1.3-3.2); Glucose 100 mg/dl (74-100); Lipase 93 U/L (23-300); Magnesium 1.9 mg/dl (1.6-2.3); Potassium 3.9 mmoL/L (3.5-5.1); Sodium 138 mmol/L (136-145); Total Protein,Serum 7.5 g/dl (6.3-8.2)
[2021-09-28 23:29] LABS: Basophils # 0.1 K/mm3 (0-0.2); Basophils % 1.6 % (0.1-2.0); Eosinophils # 0.1 K/mm3 (0.0-0.4); Eosinophils % 1.3 % (0.1-12.0); Hematocrit 41.5 % (37.0-47.0); Hemoglobin 13.3 g/dL (12.2-16.2); Lymphocytes % 24.8 % (10-50); Mean Corpuscular Hemoglobin 26.6 pg (27.0-31.2); Mean Corpuscular Volume 83.3 fl (81-99); Mean Platelet Volume 8.2 fl (7.4-10.4); Monocytes # 0.3 K/mm3 (0.1-1.0); Monocytes % 3.6 % (1.7-9.3); Neutrophils # 5.6 K/mm3 (1.8-7.8); Neutrophils % 68.7 % (37.0-80.0); Platelet Count 340 K/mm3 (142-424); Red Blood Count 4.98 M/mm3 (4.20-5.40); Red Cell Distribution Width 16.3 % (11.5-17.5); White Blood Count 8.1 K/mm3 (4.8-10.8)
[2021-09-28 23:47] LABS: Procalcitonin < 0.030 ng/mL (0.0-2.0)
--- NOTE | 2021-09-29 01:02 | PC.NURSE ---
Called [facility] and s/w Dipika, confirmed dosing for Halidol
[2021-09-29 02:50] VITALS: BP 150/85; PULSE 78; RESP 18; TEMP 36.8; O2SAT 99
[2021-09-29 02:53] VITALS: BP 154/88; PULSE 87; RESP 20; TEMP 36.8; O2SAT 97
== END 2021-09-29 02:54 | disposition home or self-care (01) ==
PROVIDERS: Emergency Provider Student in an Organized Health Care Education/Training Program; PCP Family Medicine
DX: K52.9 Noninfective gastroenteritis and colitis, unspecified (principal); R10.13 Epigastric pain; M54.9 Dorsalgia, unspecified; R11.0 Nausea
CPT/HCPCS: 74177; 80053; 80305; 81001; 81025; 83690; 83735; 84145; 85025; 86140; 96361; 96374; 96375; 99284; Q9967

== ENCOUNTER 2021-10-06 20:35 | Emergency (ER) | payer BC, SELFPAY ==
[2021-10-06 20:37] VITALS: BP 154/100; PULSE 101; RESP 16; TEMP 37.1; O2SAT 97; BMI 36.6
--- NOTE | 2021-10-06 21:27 | HMH.EDGENADL ---
ED Disposition Clinical Impression: Abdominal pain Qualifiers: Abdominal location: left upper quadrant Qualified Code(s): R10.12 - Left upper quadrant pain Disposition: Home, Self-Care Condition on Discharge: Good Instructions: DI for Chronic Pain -- Adult Additional Instructions: call pcp for follow up Referrals: Elmo Escobar MD [Primary Care Provider] - - Critical Care Critical Care Time: No Attestation: On 10/06/21, the high probability of a clinically significant, sudden or life threatening deterioration of the following system(s) required my full and direct attention, intervention and personal management. The time I documented below is in addition to time spent performing reported procedures but includes the following listed in this critical care notation. Medical Decision Making - Medical Records Medical records reviewed: Yes: I reviewed the patient's medical records. - Ramses Inquiry Pt receiving controlled substance: No Vital Signs: 10/06/21 20:37 Temperature 98.8 F Temperature Source Oral Pulse Rate [Left Radial] 101 H Respiratory Rate 16 Blood Pressure [Right Arm] 154/100 H Blood Pressure Mean [Right Arm] 118 Blood Pressure Source [Right Arm] Automatic Cuff Blood Pressure Position [Right Arm] Sitting 02 Sat by Pulse Oximetry 97 Oxygen Delivery Method Room Air Medical Decision Narrative: has ongoing abd pain and is in process of eval- no labs indicated General Adult HPI - General Chief complaint: PAIN Stated complaint: pAIN IN L UPPER STOMACH AND BACK,VOMITING Time Seen by Provider: 10/06/21 21:27 Mode of Arrival: Ambulatory Source of Information: Patient, Medical Record Limitations: No Limitations Description of Symptoms (Recalled from ER Triage Doc. by RN): PT WITH HX OF CHRONIC PANCREATITS. PT STATES THEY HAVE BEEN CUTTING HER DOWN ON HER PAIN MEDICATIONS AND SHE IS NOW HAVING ABDOMINAL PAIN AND NAUSEA. PT REPORTS SHE HAS HAD VOMITING X 2. - History of Present Illness HPI narrative: acute exacerbation of ongoing abd pain with no fever - has been compliant with meds Onset (ago): day(s) Location: abdomen Severity: moderate Associated symptoms: denies other symptoms - Related Data Home Medications Medication Instructions Recorded Confirmed diclofenac sodium 1 % topical gel 2 gm TP QID gm 11/26/20 10/01/21 hydroxyzine pamoate 50 mg capsule 50 mg PO DAILY cap 05/28/21 10/01/21 polyethylene glycol 3350 17 17 gm PO DAILY gm 05/28/21 10/01/21 gram/dose oral powder sennosides 8.6 mg-docusate sodium 1 tab PO NEEDED PRN 05/28/21 10/01/21 50 mg tablet Lidocaine [Lidocaine 5% patch] 1 patch TP DAILY 06/03/21 10/01/21 Ketoconazole 1 applic TP BID 07/18/21 10/01/21 Previous Rx's Medication Instructions Recorded ondansetron 4 mg disintegrating 4 mg PO Q8HP PRN #45 tab 08/06/21 tablet lurasidone 40 mg tablet 40 mg PO DAILY #30 tab 09/03/21 pregabalin 300 mg capsule 300 mg PO BID PRN #60 cap 09/03/21 lorazepam 0.5 mg tablet 0.5 mg PO DAILY PRN #14 tab 09/24/21 Promethazine HCl [Phenergan 25mg 25 mg PO Q6H PRN #10 tab 09/28/21 tab] ondansetron 4 mg disintegrating 4 mg PO TID #30 tab 10/01/21 tablet oxycodone 5 mg tablet See Rx Instructions .ROUTE 10/01/21 .COMPLEX PRN #21 tab venlafaxine 150 mg See Rx Instructions .ROUTE 10/01/21 capsule,extended release 24 hr .COMPLEX #30 cap Allergies Allergy/AdvReac Type Severity Reaction Status Date / Time tramadol Allergy Mild Rash Verified 10/01/21 08:26 droperidol AdvReac Intermediate jaw go Verified 10/01/21 08:26 sideways [facility] History - Hepatitis A Screen Attestation statement:: This patient has been screened for Hepatitis A risk factors. I have reviewed the patient's past medical history: Yes Medical History: Reports:: Anxiety, Cancer, Diabetes Mellitus Type 1, Hyperlipidemia, Urinary Tract Infection Denies:: Diabetes Mellitus Type 2, MRSA, Seizures Other Medical History: Reports:
[2021-10-06 22:50] VITALS: BP 140/82; PULSE 85; RESP 18; TEMP 36.6; O2SAT 98
== END 2021-10-06 22:51 | disposition home or self-care (01) ==
PROVIDERS: Emergency Provider Emergency Medicine; PCP Family Medicine
DX: R10.12 Left upper quadrant pain (principal); M54.9 Dorsalgia, unspecified; R11.10 Vomiting, unspecified; Z79.899 Other long term (current) drug therapy; Z88.6 Allergy status to analgesic agent; Z88.8 Allergy status to other drugs, medicaments and biological substances; F41.9 Anxiety disorder, unspecified; E10.9 Type 1 diabetes mellitus without complications; E78.5 Hyperlipidemia, unspecified; Z85.9 Personal history of malignant neoplasm, unspecified; Z87.440 Personal history of urinary (tract) infections; M19.90 Unspecified osteoarthritis, unspecified site; M79.7 Fibromyalgia; E07.9 Disorder of thyroid, unspecified; Z87.19 Personal history of other diseases of the digestive system; E66.9 Obesity, unspecified; Z68.36 Body mass index [BMI] 36.0-36.9, adult
CPT/HCPCS: 96374; 96375; 99284

== ENCOUNTER → 2021-10-08 17:25 | Outpatient (CLI) | payer BC, SELFPAY ==
[2021-10-08 15:26] LABS: Lipase 190 U/L (23-300)
== END ==
PROVIDERS: PCP Family Medicine; Visit Provider Family Medicine
DX: K85.90 Acute pancreatitis without necrosis or infection, unspecified (principal)
CPT/HCPCS: 83690

== ENCOUNTER 2021-10-14 19:55 | Emergency (ER) | payer BC, SELFPAY ==
--- NOTE | 2021-10-14 21:54 | PC.NURSE ---
patient states that she took her last pain pill at 5 pm tonight, states Dr. Escobar gives her extra to take but she has taken all of them. Patient requesting ice chips, informed patient that she has to be NPO until assessed by
[2021-10-14 22:32] VITALS: BP 129/82; PULSE 88; RESP 18; TEMP 36.6; O2SAT 98; BMI 40.3
[2021-10-14 22:50] LABS: Urine Pregnancy, HCG Qual. Negative (Negative)
--- NOTE | 2021-10-14 22:52 | HMH.EDNVD ---
ED Disposition Clinical Impression: Abdominal pain Qualifiers: Abdominal location: generalized Qualified Code(s): R10.84 - Generalized abdominal pain Disposition: Home, Self-Care Condition on Discharge: Good Instructions: DI for Acute Abdominal Pain Additional Instructions: call pcp in am Referrals: Elmo Escobar MD [Primary Care Provider] - - Critical Care Critical Care Time: No Attestation: On 10/14/21, the high probability of a clinically significant, sudden or life threatening deterioration of the following system(s) required my full and direct attention, intervention and personal management. The time I documented below is in addition to time spent performing reported procedures but includes the following listed in this critical care notation. Medical Decision Making - Medical Records Medical records reviewed: Yes: I reviewed the patient's medical records. - Ramses Inquiry Pt receiving controlled substance: No Vital Signs: 10/14/21 22:32 Temperature 98 F Temperature Source Oral Pulse Rate [Apical] 88 Respiratory Rate 18 Blood Pressure [Right Arm] 129/82 Blood Pressure Mean [Right Arm] 97 Blood Pressure Source [Right Arm] Automatic Cuff Blood Pressure Position [Right Arm] Sitting 02 Sat by Pulse Oximetry 98 Oxygen Delivery Method Room Air - Lab Data Lab results reviewed: Yes: I reviewed the patient's lab results. Lab Results 10/14/21 22:37: Urine HCG, Qual Negative Medical Decision Narrative: has acute exacerbation of ongoing abd pain Nausea/Vomiting/Diarrhea HPI - General Chief complaint: Abdominal Pain Stated complaint: Abd pain Time Seen by Provider: 10/14/21 22:53 Mode of Arrival: Ambulatory Source of Information: Patient, Parent(s), Medical Record Limitations: No Limitations Description of Symptoms (Recalled from ER Triage Doc. by RN): Pt c/o abd pain that radiated from the middle of her abdomen into the left side of her back. - History of Present Illness HPI Narrative: acute exacerbation of ongoing abd pain complaint: nausea, vomiting, abdominal pain Onset (ago): hour(s) Associated Abdominal Pain: Yes Location of pain: diffuse Severity: moderate Quality: sharp Consistency: intermittent Relieving factors: none Associated symptoms: denies other symptoms - Related Data Home Medications Medication Instructions Recorded Confirmed polyethylene glycol 3350 17 17 gm PO DAILY gm 05/28/21 10/08/21 gram/dose oral powder sennosides 8.6 mg-docusate sodium 1 tab PO NEEDED PRN 05/28/21 10/08/21 50 mg tablet Previous Rx's Medication Instructions Recorded ondansetron 4 mg disintegrating 4 mg PO Q8HP PRN #45 tab 08/06/21 tablet lurasidone 40 mg tablet 40 mg PO DAILY #30 tab 09/03/21 pregabalin 300 mg capsule 300 mg PO BID PRN #60 cap 09/03/21 lorazepam 0.5 mg tablet 0.5 mg PO DAILY PRN #14 tab 09/24/21 Promethazine HCl [Phenergan 25mg 25 mg PO Q6H PRN #10 tab 09/28/21 tab] venlafaxine 150 mg See Rx Instructions .ROUTE 10/01/21 capsule,extended release 24 hr .COMPLEX #30 cap oxycodone 5 mg tablet See Rx Instructions .ROUTE 10/08/21 .COMPLEX PRN #21 tab pantoprazole 40 mg tablet,delayed 40 mg PO DAILY #90 tab 10/08/21 release Allergies Allergy/AdvReac Type Severity Reaction Status Date / Time tramadol Allergy Mild Rash Verified 10/08/21 08:20 droperidol AdvReac Intermediate jaw go Verified 10/08/21 08:20 sideways [facility] History - Hepatitis A Screen Attestation statement:: This patient has been screened for Hepatitis A risk factors. I have reviewed the patient's past medical history: Yes Medical History: Reports:: Anxiety, Cancer, Diabetes Mellitus Type 1, Hyperlipidemia, Urinary Tract Infection Denies:: Diabetes Mellitus Type 2, MRSA, Seizures Other Medical History: Reports: Arthritis, Fibromyalgia, Thyroid Disease, Other Comment: obesity, pancreatitis Other Surgeries: Yes: Cholecystectomy, , Dilation and Cur
--- NOTE | 2021-10-14 22:55 | PC.NURSE ---
at speaking with pt about POC
[2021-10-14 22:59] VITALS: BP 140/82; PULSE 78; RESP 17; TEMP 36.6; O2SAT 95
== END 2021-10-14 23:05 | disposition home or self-care (01) ==
PROVIDERS: Emergency Provider Emergency Medicine; PCP Family Medicine
DX: M54.9 Dorsalgia, unspecified; R11.2 Nausea with vomiting, unspecified; E78.5 Hyperlipidemia, unspecified; E07.9 Disorder of thyroid, unspecified; E10.9 Type 1 diabetes mellitus without complications; M79.7 Fibromyalgia; M19.90 Unspecified osteoarthritis, unspecified site; K85.90 Acute pancreatitis without necrosis or infection, unspecified; E66.9 Obesity, unspecified; F41.9 Anxiety disorder, unspecified; F17.210 Nicotine dependence, cigarettes, uncomplicated; Z79.899 Other long term (current) drug therapy; Z88.6 Allergy status to analgesic agent; Z88.8 Allergy status to other drugs, medicaments and biological substances; Z68.41 Body mass index [BMI] 40.0-44.9, adult; Z82.49 Family history of ischemic heart disease and other diseases of the circulatory system; Z80.9 Family history of malignant neoplasm, unspecified
CPT/HCPCS: 81025; 96372; 99284

== ENCOUNTER → 2021-10-15 15:17 | Outpatient (CLI) | payer BC, SELFPAY ==
[2021-10-15 15:53] LABS: Lipase 132 U/L (23-300)
== END ==
PROVIDERS: PCP Family Medicine; Visit Provider Family Medicine
DX: K85.90 Acute pancreatitis without necrosis or infection, unspecified (principal)
CPT/HCPCS: 83690

== ENCOUNTER 2021-10-17 20:03 | Emergency (ER) | payer BC, SELFPAY ==
[2021-10-17 21:00] VITALS: BP 117/86; PULSE 91; RESP 16; TEMP 36.7; O2SAT 99; BMI 36.6
--- NOTE | 2021-10-17 21:44 | PC.NURSE ---
Rounded on pt. Updated on expected wait times. No other needs or complaints voiced.
--- NOTE | 2021-10-17 21:54 | PC.NURSE ---
WARM BLANKET PROVIDED. NO ACUTE DISTRESS NOTED.
--- NOTE | 2021-10-17 22:34 | HMH.EDGENADL ---
Discharge Plan Disposition Patient Disposition: Home, Self-Care Chief Complaint: PAIN Prescriptions Prescriptions: No Action polyethylene glycol 3350 17 gram/dose powder 17 gm PO DAILY sennosides-docusate sodium [Senexon-S] 8.6-50 mg tablet 1 tab PO NEEDED PRN (Reason: BOWELS) ondansetron 4 mg tablet,disintegrating 4 mg PO Q8HP PRN (Reason: n/v) Qty: 45 6RF lorazepam 0.5 mg tablet 0.5 mg PO DAILY PRN (Reason: anxiety) Qty: 14 1RF oxycodone 5 mg tablet See Rx Instructions .ROUTE .COMPLEX PRN (Reason: pain) Qty: 21 0RF Rx Instructions: one tid as needed for severe abdominal pain PRN; lurasidone 40 mg tablet 40 mg PO DAILY Qty: 30 0RF Rx Instructions: must administer with food (at least 350 calories) pregabalin [Lyrica] 300 mg capsule 300 mg PO BID PRN (Reason: pain) Qty: 60 1RF venlafaxine 150 mg capsule,extended release 24hr See Rx Instructions .ROUTE .COMPLEX Rx Instructions: TAKE 1 CAPSULE BY MOUTH ONCE DAILY FOR DEPRESSION pantoprazole [Protonix] 40 mg tablet,delayed release (DR/EC) 40 mg PO DAILY promethazine 25 MG tablet 25 mg PO Q6H PRN (Reason: Nausea And Vomiting) Qty: 10 0RF Referrals Referrals: Elmo Escobar MD [Primary Care Provider] - Enter time for follow up Clinical Impressions Clinical Impression: Abdominal pain, Chronic abdominal pain Instructions Patient Instructions: DI for Chronic Pain -- Adult Discharge ED Provider: George Mckinley General Adult HPI General Chief complaint: PAIN Stated complaint: Abdominal pain, diarrhea Time Seen by Provider: 10/17/21 22:34 Mode of Arrival: Ambulatory Source of Information: Patient and Medical Record Limitations: No Limitations Description of Symptoms (Recalled from ER Triage Doc. by RN): PT REPORTS NAUSEA AND HER CHRONIC ABDOMINAL PAIN RELATED TO HER CHRONIC PANCREATITS THAT HAS NOT BEEN CONTROLLED WITH HER NORMAL PAIN MEDS. History of Present Illness HPI narrative: acute exacerbation of ongoing abd pain Onset (ago): day(s) Location: abdomen Severity: moderate Quality: sharp Consistency: intermittent Associated symptoms: denies other symptoms Related Data Home Medications Medication Instructions Recorded Confirmed polyethylene glycol 3350 17 17 gm PO DAILY constipation 05/28/21 10/17/21 gram/dose oral powder sennosides 8.6 mg-docusate sodium 1 tab PO NEEDED PRN BOWELS 05/28/21 10/17/21 50 mg tablet (Senexon-S) pantoprazole 40 mg tablet,delayed 40 mg PO DAILY GERD 10/17/21 10/17/21 release (Protonix) venlafaxine 150 mg See Rx Instructions .Route 10/17/21 10/17/21 capsule,extended release 24 hr .COMPLEX DEPRESSION AND ANXIETY Previous Rx's Medication Instructions Recorded ondansetron 4 mg disintegrating 4 mg PO Q8HP PRN n/v #45 tabs 08/06/21 tablet lurasidone 40 mg tablet 40 mg PO DAILY . #30 tabs 09/03/21 pregabalin 300 mg capsule (Lyrica) 300 mg PO BID PRN pain #60 caps 09/03/21 lorazepam 0.5 mg tablet 0.5 mg PO DAILY PRN anxiety #14 09/24/21 tabs promethazine 25 mg tablet 25 mg PO Q6H PRN Nausea And 09/28/21 Vomiting #10 tabs oxycodone 5 mg tablet See Rx Instructions .Route 10/15/21 .COMPLEX PRN pain #21 tabs Allergies Allergy/AdvReac Type Severity Reaction Status Date / Time tramadol Allergy Mild Rash Verified 10/15/21 08:18 droperidol AdvReac Intermediate jaw go Verified 10/15/21 08:18 sideways PFSH PFSH Social History Smoking Status: Current every day smoker tobacco type: cigarettes packs per day: 1 alcohol intake: former substance use type: denies use current occupational status: unemployed household members: significant other, family and children housing: house caffeine: No ROS Obtained: Yes Systems reviewed as appropriate & no additional complaints except as documented Gastrointestinal Gastrointestingal: Reports abdominal pain, nausea and vomiting Physical Exam General General ap
[2021-10-17 22:54] VITALS: BP 117/86; PULSE 91; RESP 16; TEMP 36.7; O2SAT 99
--- NOTE | 2021-10-17 22:57 | PC.NURSE ---
NOT ADMINSTERED. OMNICELL WILL NOT ALLOW WASTED. SECOND MG OF DILAUDID WASTED WITH FARNAZ TARIQ.
[2021-10-17 23:04] VITALS: BP 110/71; PULSE 89; RESP 16; TEMP 36.7; O2SAT 97
== END 2021-10-17 23:03 | disposition home or self-care (01) ==
PROVIDERS: Emergency Provider Emergency Medicine; PCP Family Medicine
DX: R10.9 Unspecified abdominal pain (principal); R11.0 Nausea; R19.7 Diarrhea, unspecified; G89.29 Other chronic pain
CPT/HCPCS: 96372; 99283

== ENCOUNTER 2021-10-20 00:47 | Emergency (ER) | payer BC, SELFPAY ==
[2021-10-20 01:01] VITALS: BP 141/107; PULSE 83; RESP 16; TEMP 36.6; O2SAT 98; BMI 37.3
--- NOTE | 2021-10-20 01:37 | HMH.EDGENADL ---
Discharge Plan Disposition Chief Complaint: PAIN Prescriptions Prescriptions: No Action polyethylene glycol 3350 17 gram/dose powder 17 gm PO DAILY sennosides-docusate sodium [Senexon-S] 8.6-50 mg tablet 1 tab PO NEEDED PRN (Reason: BOWELS) ondansetron 4 mg tablet,disintegrating 4 mg PO Q8HP PRN (Reason: n/v) Qty: 45 6RF lorazepam 0.5 mg tablet 0.5 mg PO DAILY PRN (Reason: anxiety) Qty: 14 1RF lurasidone 40 mg tablet 40 mg PO DAILY Qty: 30 0RF Rx Instructions: must administer with food (at least 350 calories) pregabalin [Lyrica] 300 mg capsule 300 mg PO BID PRN (Reason: pain) Qty: 60 1RF venlafaxine 150 mg capsule,extended release 24hr See Rx Instructions .ROUTE .COMPLEX Rx Instructions: TAKE 1 CAPSULE BY MOUTH ONCE DAILY FOR DEPRESSION pantoprazole [Protonix] 40 mg tablet,delayed release (DR/EC) 40 mg PO DAILY promethazine 25 MG tablet 25 mg PO Q6H PRN (Reason: Nausea And Vomiting) Qty: 10 0RF oxycodone 5 mg tablet 5 mg PO TID PRN (Reason: pain) Rx Instructions: one tid as needed for severe abdominal pain PRN; Referrals Follow up/Referrals: Elmo Escobar MD [Primary Care Provider] - See instructions Clinical Impressions Clinical Impression: Abdominal pain Instructions Patient Instructions: DI for Chronic Pain -- Adult Discharge ED Provider: George Mckinley General Adult HPI General Chief complaint: PAIN Stated complaint: Left side pain,nausea Time Seen by Provider: 10/20/21 01:37 Mode of Arrival: Ambulatory Source of Information: Patient and Medical Record Limitations: No Limitations Description of Symptoms (Recalled from ER Triage Doc. by RN): PT WITH CHRONIC PAIN AND STATES SHE CAN NOT GET HER PAIN UNDER CONTROL SO SHE CAN GET TO SLEEP. History of Present Illness HPI narrative: pt with ongoing abd pain issues - no new c/o Onset (ago): day(s) Location: abdomen Severity: moderate Associated symptoms: nausea/vomiting Treatments prior to arrival: other (pain meds ) Related Data Home Medications Medication Instructions Recorded Confirmed polyethylene glycol 3350 17 17 gm PO DAILY constipation 05/28/21 10/20/21 gram/dose oral powder sennosides 8.6 mg-docusate sodium 1 tab PO NEEDED PRN BOWELS 05/28/21 10/20/21 50 mg tablet (Senexon-S) pantoprazole 40 mg tablet,delayed 40 mg PO DAILY GERD 10/17/21 10/20/21 release (Protonix) venlafaxine 150 mg See Rx Instructions .Route 10/17/21 10/20/21 capsule,extended release 24 hr .COMPLEX DEPRESSION AND ANXIETY oxycodone 5 mg tablet 5 mg PO TID PRN pain 10/20/21 10/20/21 Previous Rx's Medication Instructions Recorded ondansetron 4 mg disintegrating 4 mg PO Q8HP PRN n/v #45 tabs 08/06/21 tablet lurasidone 40 mg tablet 40 mg PO DAILY . #30 tabs 09/03/21 pregabalin 300 mg capsule (Lyrica) 300 mg PO BID PRN pain #60 caps 09/03/21 lorazepam 0.5 mg tablet 0.5 mg PO DAILY PRN anxiety #14 09/24/21 tabs promethazine 25 mg tablet 25 mg PO Q6H PRN Nausea And 09/28/21 Vomiting #10 tabs Allergies Allergy/AdvReac Type Severity Reaction Status Date / Time tramadol Allergy Mild Rash Verified 10/15/21 08:18 droperidol AdvReac Intermediate jaw go Verified 10/15/21 08:18 sideways PFSH PFSH Social History (Updated 10/17/21 @ 22:40 by George Mckinley MD) Smoking Status: Current every day smoker tobacco type: cigarettes packs per day: 1 alcohol intake: former substance use type: denies use current occupational status: unemployed household members: significant other, family and children housing: house caffeine: No ROS Obtained: Yes All systems reviewed & no additional complaints except as documented Physical Exam General General appearance: in no apparent distress Head Head exam: normocephalic Eye Eye exam: Present PERRL and EOMI ENT ENT exam: Present normal oropharynx Neck Neck exam: Present trachea midline Respiratory Respi
[2021-10-20 01:59] VITALS: BP 130/78; PULSE 82; RESP 18; TEMP 36.6; O2SAT 98
== END 2021-10-20 02:02 | disposition home or self-care (01) ==
LOC: ER 01:05
PROVIDERS: Emergency Provider Emergency Medicine; PCP Family Medicine
DX: R10.32 Left lower quadrant pain (principal); R11.2 Nausea with vomiting, unspecified; G89.29 Other chronic pain; F32.A Depression, unspecified; F41.9 Anxiety disorder, unspecified; F17.210 Nicotine dependence, cigarettes, uncomplicated; Z88.8 Allergy status to other drugs, medicaments and biological substances
CPT/HCPCS: 96372; 96374; 99284

== ENCOUNTER 2021-10-25 19:54 | Emergency (ER) | payer BC, SELFPAY ==
[2021-10-25 19:56] VITALS: BP 140/81; PULSE 82; RESP 16; TEMP 36.7; O2SAT 98; BMI 36.6
--- NOTE | 2021-10-25 20:30 | HMH.EDEAR ---
Discharge Plan Disposition Patient Disposition: Home, Self-Care Prescriptions Prescriptions: New cephalexin [cephalexin] 500 mg capsule 500 mg PO TID Qty: 30 0RF No Action polyethylene glycol 3350 17 gram/dose powder 17 gm PO DAILY sennosides-docusate sodium [Senexon-S] 8.6-50 mg tablet 1 tab PO NEEDED PRN (Reason: BOWELS) ondansetron 4 mg tablet,disintegrating 4 mg PO Q8HP PRN (Reason: n/v) Qty: 45 6RF lorazepam 0.5 mg tablet 0.5 mg PO DAILY PRN (Reason: anxiety) Qty: 14 1RF oxycodone 5 mg tablet 5 mg PO TID PRN (Reason: pain) Qty: 21 0RF Rx Instructions: one tid as needed for severe abdominal pain PRN; lurasidone 40 mg tablet 40 mg PO DAILY Qty: 30 0RF Rx Instructions: must administer with food (at least 350 calories) pregabalin [Lyrica] 300 mg capsule 300 mg PO BID PRN (Reason: pain) Qty: 60 1RF venlafaxine 150 mg capsule,extended release 24hr See Rx Instructions .ROUTE .COMPLEX Rx Instructions: TAKE 1 CAPSULE BY MOUTH ONCE DAILY FOR DEPRESSION pantoprazole [Protonix] 40 mg tablet,delayed release (DR/EC) 40 mg PO DAILY promethazine 25 MG tablet 25 mg PO Q6H PRN (Reason: Nausea And Vomiting) Qty: 10 0RF Referrals Follow up/Referrals: Elmo Escobar MD [Primary Care Provider] - See instructions Clinical Impressions Clinical Impression: Acute on chronic pancreatitis, Sinusitis Instructions Patient Instructions: DI for Sinusitis Discharge ED Provider: George Mckinley Ear HPI General Chief complaint: Ear Stated complaint: bilateral earache,abdominal pain Time Seen by Provider: 10/25/21 21:15 Mode of Arrival: Ambulatory Source of Information: Patient and Medical Record Limitations: No Limitations Description of Symptoms (Recalled from ER Triage Doc. by RN): Pt reports both ears have been hurting her for 2 days. She also reports a ESPINOZA. Pt states her son has been sick and was tested for COVID yesterday with a negative result. Pt denies fevers or cough. History of Present Illness HPI Narrative: pt with her issues of sinus pressure and ear ache - also has ongoing abd pain - discussed chronic pain issue with pt Complaint: ear pain Location: bilateral Duration: intermittent Severity: moderate Context: recent illness Discharge from ear: no Related Data Home Medications Medication Instructions Recorded Confirmed polyethylene glycol 3350 17 17 gm PO DAILY constipation 05/28/21 10/22/21 gram/dose oral powder sennosides 8.6 mg-docusate sodium 1 tab PO NEEDED PRN BOWELS 05/28/21 10/22/21 50 mg tablet (Senexon-S) pantoprazole 40 mg tablet,delayed 40 mg PO DAILY GERD 10/17/21 10/22/21 release (Protonix) venlafaxine 150 mg See Rx Instructions .Route 10/17/21 10/22/21 capsule,extended release 24 hr .COMPLEX DEPRESSION AND ANXIETY Previous Rx's Medication Instructions Recorded ondansetron 4 mg disintegrating 4 mg PO Q8HP PRN n/v #45 tabs 08/06/21 tablet lurasidone 40 mg tablet 40 mg PO DAILY . #30 tabs 09/03/21 pregabalin 300 mg capsule (Lyrica) 300 mg PO BID PRN pain #60 caps 09/03/21 lorazepam 0.5 mg tablet 0.5 mg PO DAILY PRN anxiety #14 09/24/21 tabs promethazine 25 mg tablet 25 mg PO Q6H PRN Nausea And 09/28/21 Vomiting #10 tabs oxycodone 5 mg tablet 5 mg PO TID PRN pain #21 tabs 10/22/21 cephalexin 500 mg capsule 500 mg PO TID #30 caps 10/25/21 Allergies Allergy/AdvReac Type Severity Reaction Status Date / Time tramadol Allergy Mild Rash Verified 10/22/21 11:23 droperidol AdvReac Intermediate jaw go Verified 10/22/21 11:23 sideways PFSH PFSH Social History Smoking Status: Current every day smoker tobacco type: cigarettes packs per day: 1 alcohol intake: former substance use type: denies use current occupational status: unemployed Travel in the last 8 weeks: None household members: significant other, family and ch
[2021-10-25 21:58] VITALS: BP 151/80; PULSE 98; RESP 16; TEMP 36.6; O2SAT 99
== END 2021-10-25 22:00 | disposition home or self-care (01) ==
PROVIDERS: Emergency Provider Emergency Medicine; PCP Family Medicine
DX: K85.90 Acute pancreatitis without necrosis or infection, unspecified (principal); J32.9 Chronic sinusitis, unspecified; H92.03 Otalgia, bilateral; R11.2 Nausea with vomiting, unspecified; Z20.822 Contact with and (suspected) exposure to COVID-19; R51.9 Headache, unspecified; G89.29 Other chronic pain; F32.A Depression, unspecified; F17.210 Nicotine dependence, cigarettes, uncomplicated; Z79.899 Other long term (current) drug therapy; Z88.6 Allergy status to analgesic agent; Z88.8 Allergy status to other drugs, medicaments and biological substances
CPT/HCPCS: 96372; 99284

== ENCOUNTER → 2021-11-12 15:29 | Outpatient (CLI) | payer BC, SELFPAY ==
[2021-11-12 16:39] LABS: Chloride 101 mmol/L (98-107); Potassium 3.5 mmoL/L (3.5-5.1); Sodium 141 mmol/L (136-145)
[2021-11-12 16:42] LABS: Alanine Aminotransferase 54 U/L (12-78); Albumin Level 4.7 g/dl (3.5-5.0); Albumin/Globulin Ratio 1.6 (1.1-1.8); Alkaline Phosphatase 155 U/L (38-126); Anion Gap 19.5 mEq/L (5-15); Aspartate Amino Transferase 32 U/L (14-36); Bilirubin,Total 0.5 mg/dl (0.2-1.3); Blood Urea Nitrogen 10 mg/dl (7-17); Calcium 9.4 mg/dl (8.4-10.2); Carbon Dioxide 24 mmol/L (22.0-30.0); Estimated Glomerular Filt Rate 141 ml/min (>60); GFR (African American) 171 ML/MIN (>60); Globulin 2.9 g/dL (1.3-3.2); Glucose 109 mg/dl (74-100); Lipase 66 U/L (23-300); Total Protein,Serum 7.6 g/dl (6.3-8.2)
== END ==
LOC: LAB 15:29 → LAB.DROPOF 15:30
PROVIDERS: PCP Family Medicine; Visit Provider Family Medicine
DX: R10.13 Epigastric pain (principal)
CPT/HCPCS: 36415; 80053; 83690

== ENCOUNTER 2021-11-15 20:12 | Emergency (ER) | payer BC, SELFPAY ==
[2021-11-15 20:25] VITALS: BP 153/94; PULSE 89; RESP 16; TEMP 36.6; O2SAT 98; BMI 36.4
--- NOTE | 2021-11-15 21:04 | PC.NURSE ---
at BS speaking with pt
--- NOTE | 2021-11-15 21:30 | PC.NURSE ---
PT SPOKE WITH MD. NO CHANGES AT THIS TIME.
--- NOTE | 2021-11-15 21:32 | PC.NURSE ---
Dr. Mckinley states pt may have phenergan and stadol inj or IVF. Pt refuses and decided to leave.
[2021-11-15 21:34] VITALS: BP 145/82; PULSE 75; RESP 17; TEMP 36.8; O2SAT 98
== END 2021-11-15 21:42 | disposition left against medical advice (07) ==
LOC: ER 20:28
PROVIDERS: Emergency Provider Emergency Medicine; PCP Family Medicine
DX: Z53.21 Procedure and treatment not carried out due to patient leaving prior to being seen by health care provider (principal)

== ENCOUNTER → 2021-11-19 13:31 | Outpatient (CLI) | payer BC, SELFPAY ==
[2021-11-19 15:19] LABS: HCG,Quantitative < 2 mIU/ml (0-5.42)
[2021-11-19 20:05] LABS: Amylase 50 U/L (30-110); Lipase 95 U/L (23-300)
== END ==
PROVIDERS: Internal Medicine; PCP Family Medicine; Visit Provider Internal Medicine Gastroenterology
DX: Z01.812 Encounter for preprocedural laboratory examination (principal); Z20.822 Contact with and (suspected) exposure to COVID-19; K85.90 Acute pancreatitis without necrosis or infection, unspecified; Z13.810 Encounter for screening for upper gastrointestinal disorder
CPT/HCPCS: 82150; 83690; 84702; C9803; U0003; U0005

== ENCOUNTER 2021-11-21 11:33 | Day surgery (SDC) | payer BC, SELFPAY ==
[2021-11-18 10:31] VITALS: BMI 36.4
[2021-11-21 11:54] VITALS: BP 107/68; PULSE 85; RESP 18; TEMP 36.3; O2SAT 100
--- NOTE | 2021-11-21 12:19 | P.PN_ITS ---
[facility] Medical History (Updated 11/21/21 @ 11:53 by Rafiq Brand RN) Anxiety Depressed Fibromyalgia Gallbladder disease History of fracture of hand History of gastroesophageal reflux (GERD) Osteoarthritis Overactive bladder Pancreatitis Surgical History History of cholecystectomy History of colonoscopy Hx of dilation and curettage Hx of endoscopic retrograde cholangiopancreatography Hx of esophagogastroduodenoscopy Family History Other Family history of acute congestive heart failure Family history of hyperlipidemia Family history of hypertension Social History Smoking Status: Current every day smoker tobacco type: cigarettes packs per day: 1 pack-years: 20 years smoked: 20 second hand exposure: No alcohol intake: former substance use type: former substance user and marijuana current occupational status: unemployed Travel in the last 8 weeks: None household members: significant other, family and children housing: house marital status: single number of children: 3 education level: high school caffeine: No special jeanette needs: No agree to transfusion: No do you feel safe at home: Yes victim of physical abuse: No victim of emotional abuse: No victim of sexual abuse: No would you like helpful sources: No [facility] Anesthesia Checklist Patient Identification Patient Identification: Arm Band and Verbal (Name & ) Structural Data Admitted From: Home Planned Operative Procedure/s: EGD Consent for Planned Operative Procedure(s) Verified: Yes Verified Documents: Surgical Consent NPO Status Verified Time NPO: 00:00 Additional verifications Anesthesia Reactions: No Airway Assessment C-Spine Mobility Assessed: Yes TMJ Mobility Assessed: Yes Dentition: Good Dentition Neurological Assessment Level of Consciousness: Awake, Alert and Appropriate Anesthesia Plan Anesthesia Risk discussed: Yes ASA Class: III Anesthesia Type: MAC
--- NOTE | 2021-11-21 12:33 | EXP.ANES.CKL ---
[facility] Medical History (Updated 11/21/21 @ 11:53 by Rafiq Brand RN) Anxiety Depressed Fibromyalgia Gallbladder disease History of fracture of hand History of gastroesophageal reflux (GERD) Osteoarthritis Overactive bladder Pancreatitis Surgical History History of cholecystectomy History of colonoscopy Hx of dilation and curettage Hx of endoscopic retrograde cholangiopancreatography Hx of esophagogastroduodenoscopy Family History Other Family history of acute congestive heart failure Family history of hyperlipidemia Family history of hypertension Social History Smoking Status: Current every day smoker tobacco type: cigarettes packs per day: 1 pack-years: 20 years smoked: 20 second hand exposure: No alcohol intake: former substance use type: former substance user and marijuana current occupational status: unemployed Travel in the last 8 weeks: None household members: significant other, family and children housing: house marital status: single number of children: 3 education level: high school caffeine: No special jeanette needs: No agree to transfusion: No do you feel safe at home: Yes victim of physical abuse: No victim of emotional abuse: No victim of sexual abuse: No would you like helpful sources: No [facility] Anesthesia Checklist Patient Identification Patient Identification: Arm Band Structural Data Admitted From: Home Planned Operative Procedure/s: EGD Consent for Planned Operative Procedure(s) Verified: Yes Verified Documents: Surgical Consent and History and Physical NPO Status Verified Time NPO: 00:00 Additional verifications Anesthesia Reactions: No Airway Assessment C-Spine Mobility Assessed: Yes TMJ Mobility Assessed: Yes Dentition: Good Dentition Neurological Assessment Level of Consciousness: Awake and Alert Anesthesia Plan Anesthesia Risk discussed: Yes Anesthesia Plan: Verified ASA Class: II Anesthesia Type: MAC
[2021-11-21 12:46] VITALS: O2SAT 100
--- NOTE | 2021-11-21 12:58 | HMH.SCOPE ---
Procedure: Date: 11/21/21 Patient Date of :: 1985 Procedure Performed:: EGD and biopsy Indications:: Abdominal pain, nausea & vomiting Performing Provider:: Jabier Joshua MD Referring Provider:: Elmo Escobar Sedation:: Propofol Procedure:: The gastroscope was gently passed through the incisoral orifice into the oral cavity and under direct visualization the esophagus was intubated. The endoscope was passed down the esophagus, through the stomach, and into the duodenum. Color, texture, mucosa, and anatomy of the esophagus, stomach, and duodenum were carefully examined with the scope. Findings:: Oropharynx: normal Esophagus: normal EG Junction: intact at 40 cm Cardia: normal Fundus: normal Body: normal Antrum: Couple of small shallow superficial ulcers noted, biopsies obtained Duodenal bulb: normal Duodenum (second and third portion): normal Impression: antral ulcers Recommendations:: PPI therapy & smoking cessation with avoidance of NSAID products Complications:: None Estimated blood obtained (mL): 0
[2021-11-21 13:01] VITALS: BP 101/48; PULSE 77; RESP 16; TEMP 36.6; O2SAT 98
[2021-11-21 13:11] VITALS: BP 108/59; PULSE 70; RESP 16; O2SAT 100
[2021-11-21 13:21] VITALS: BP 113/54; PULSE 76; RESP 16; O2SAT 100
[2021-11-21 13:31] VITALS: BP 110/79; PULSE 70; RESP 16; TEMP 36.6; O2SAT 100
--- NOTE | 2021-11-22 07:35 | P.PN_ITS ---
[facility] Medical History (Updated 11/21/21 @ 11:53 by Rafiq Brand RN) Anxiety Depressed Fibromyalgia Gallbladder disease History of fracture of hand History of gastroesophageal reflux (GERD) Osteoarthritis Overactive bladder Pancreatitis Surgical History History of cholecystectomy History of colonoscopy Hx of dilation and curettage Hx of endoscopic retrograde cholangiopancreatography Hx of esophagogastroduodenoscopy Family History Other Family history of acute congestive heart failure Family history of hyperlipidemia Family history of hypertension Social History Smoking Status: Current every day smoker tobacco type: cigarettes packs per day: 1 pack-years: 20 years smoked: 20 second hand exposure: No alcohol intake: former substance use type: former substance user and marijuana current occupational status: unemployed Travel in the last 8 weeks: None household members: significant other, family and children housing: house marital status: single number of children: 3 education level: high school caffeine: No special jeanette needs: No agree to transfusion: No do you feel safe at home: Yes victim of physical abuse: No victim of emotional abuse: No victim of sexual abuse: No would you like helpful sources: No [facility] Anesthesia Checklist Patient Identification Patient Identification: Arm Band Structural Data Admitted From: Home Planned Operative Procedure/s: colonoscopy Consent for Planned Operative Procedure(s) Verified: Yes Verified Documents: Surgical Consent and History and Physical NPO Status Verified Time NPO: 00:00 Additional verifications Anesthesia Reactions: No Airway Assessment C-Spine Mobility Assessed: Yes TMJ Mobility Assessed: Yes Dentition: Good Dentition Neurological Assessment Level of Consciousness: Awake and Alert Anesthesia Plan Anesthesia Risk discussed: Yes Anesthesia Plan: Verified ASA Class: III Anesthesia Type: MAC
== END 2021-11-21 13:31 | disposition home or self-care (01) ==
PROVIDERS: PCP Family Medicine; Visit Provider Internal Medicine Gastroenterology
PROC: 0DJ08ZZ Inspection of Upper Intestinal Tract, Via Natural or Artificial Opening Endoscopic (ICD-10-PCS; CPT 43235; principal; 2021-11-21 12:30)
DX: R10.9 Unspecified abdominal pain (principal); R11.2 Nausea with vomiting, unspecified; K31.9 Disease of stomach and duodenum, unspecified; Z79.899 Other long term (current) drug therapy; F17.210 Nicotine dependence, cigarettes, uncomplicated
CPT/HCPCS: 43239; J0330

== ENCOUNTER → 2021-12-17 09:30 | Outpatient (CLI) | payer BC, SELFPAY ==
[2021-12-17 15:15] LABS: Lipase 55 U/L (23-300)
== END ==
PROVIDERS: PCP Family Medicine; Visit Provider Family Medicine
DX: K85.90 Acute pancreatitis without necrosis or infection, unspecified (principal)
CPT/HCPCS: 83690

== ENCOUNTER 2021-12-25 20:48 | Emergency (ER) | payer BC, SELFPAY ==
[2021-12-25 20:50] VITALS: BP 149/95; PULSE 88; RESP 18; TEMP 36.5; O2SAT 98; BMI 38.2
--- NOTE | 2021-12-25 21:07 | CT_ITS ---
PROCEDURE INFORMATION: Exam: CT Abdomen And Pelvis With Contrast Exam date and time: 12/25/2021 10:00 PM Age: 36 years old Clinical indication: Abdominal pain; Localized; Left lower quadrant (llq); Prior surgery; Surgery type: D&c; Additional info: Abd pain TECHNIQUE: Imaging protocol: Computed tomography of the abdomen and pelvis with contrast. Radiation optimization: All CT scans at this facility use at least one of these dose optimization techniques: automated exposure control; mA and/or kV adjustment per patient size (includes targeted exams where dose is matched to clinical indication); or iterative reconstruction. Contrast material: ISOVUE; Contrast volume: 75 ml; Contrast route: IV; COMPARISON: CT ABDOMEN PELVIS W CON 09/28/2021 11:24 PM FINDINGS: Liver: No suspicious mass. Gallbladder and bile ducts: Cholecystectomy. Pancreas: No ductal dilation. No peripancreatic inflammatory changes. Spleen: Unremarkable. Adrenal glands: No mass. Kidneys and ureters: No hydronephrosis. Unremarkable renogram. Stomach and bowel: Non-obstructive bowel gas pattern. No significant wall thickening. Appendix: Appendicoliths versus residual oral contrast in the distal appendix without evidence of appendicitis. Intraperitoneal space: No free air. No ascites. Vasculature: Several phleboliths in the pelvis. No abdominal aortic aneurysm. Lymph nodes: No enlarged lymph nodes. Urinary bladder: Unremarkable as visualized. Reproductive: Unremarkable as visualized. Bones/joints: No suspicious osseous lesion. No acute fracture. Soft tissues: No suspicious mass. IMPRESSION: No acute findings.
[2021-12-25 21:31] LABS: Microscopic, Urine URINE MICROSCOPIC (MICROSCOPIC)
[2021-12-25 21:34] LABS: Appearance,Urine CLEAR (Clear); Bilirubin,Urine Negative (Negative); Blood, Urine Negative (Negative); Color,Urine YELLOW (Yellow); Glucose,Urine (UA) Negative (Negative); Ketones,Urine Negative (Negative); Leukocyte Esterase,Urine Negative (Negative); Nitrate,Urine Negative (Negative); PH,Urine 6.5 (5.0-8.5); Protein,Urine Negative (Negative); Specific Gravity, Urine 1.025 (1.005-1.030); Urobilinogen,Urine 0.2 EU/dl (0.2)
[2021-12-25 21:39] LABS: Urine Pregnancy, HCG Qual. Negative (Negative)
[2021-12-25 21:48] LABS: Bacteria,Urine 1+ /lpf; Mucus,Urine 1+ /lpf
[2021-12-25 21:55] LABS: Basophils # 0.1 K/mm3 (0-0.2); Basophils % 1.9 % (0.1-2.0); Eosinophils # 0.1 K/mm3 (0.0-0.4); Eosinophils % 1.1 % (0.1-12.0); Hematocrit 40.8 % (37.0-47.0); Hemoglobin 13.3 g/dL (12.2-16.2); Lymphocytes # 2.1 K/mm3 (0.7-4.5); Lymphocytes % 28.2 % (10-50); Mean Corpuscular HGB Conc 32.6 g/dL (31.8-35.4); Mean Corpuscular Hemoglobin 28.2 pg (27.0-31.2); Mean Corpuscular Volume 86.5 fl (81-99); Mean Platelet Volume 8.6 fl (7.4-10.4); Monocytes # 0.3 K/mm3 (0.1-1.0); Monocytes % 3.5 % (1.7-9.3); Neutrophils # 4.9 K/mm3 (1.8-7.8); Neutrophils % 65.3 % (37.0-80.0); Platelet Count 315 K/mm3 (142-424); Red Blood Count 4.72 M/mm3 (4.20-5.40); Red Cell Distribution Width 16.7 % (11.5-17.5); White Blood Count 7.5 K/mm3 (4.8-10.8)
--- NOTE | 2021-12-25 22:04 | PC.NURSE ---
Pt gone to RAD for CT
--- NOTE | 2021-12-25 22:11 | PC.NURSE ---
Pt back from RAD
[2021-12-25 22:23] LABS: Erythrocyte Sedimentation Rate 16 mm/hr (0-20)
--- NOTE | 2021-12-25 22:29 | PC.NURSE ---
PT complains of pain and requests medication. MD and RN made aware.
[2021-12-25 22:31] VITALS: BP 106/60; PULSE 85; O2SAT 97
[2021-12-25 22:38] LABS: Chloride 100 mmol/L (98-107)
[2021-12-25 22:39] LABS: Potassium 4.1 mmoL/L (3.5-5.1); Sodium 138 mmol/L (136-145)
[2021-12-25 22:41] LABS: Alanine Aminotransferase 23 U/L (12-78); Alkaline Phosphatase 112 U/L (38-126); Anion Gap 15.1 mEq/L (5-15); Aspartate Amino Transferase 36 U/L (14-36); Bilirubin,Total 0.4 mg/dl (0.2-1.3); Blood Urea Nitrogen 10 mg/dl (7-17); Carbon Dioxide 27 mmol/L (22.0-30.0); Creatinine Clearance Estimated 216 mL/min (50-200); Estimated Glomerular Filt Rate 114 ml/min (>60); GFR (African American) 138 ML/MIN (>60)
[2021-12-25 22:42] LABS: Albumin Level 4.7 g/dl (3.5-5.0); Albumin/Globulin Ratio 1.5 (1.1-1.8); Calcium 10.3 mg/dl (8.4-10.2); Globulin 3.1 g/dL (1.3-3.2); Glucose 97 mg/dl (74-100); Lipase 100 U/L (23-300); Total Protein,Serum 7.8 g/dl (6.3-8.2)
[2021-12-25 22:47] LABS: C-Reactive Protein 4.8 mg/L (0-4)
[2021-12-25 22:58] LABS: Procalcitonin 0.051 ng/mL (0.0-2.0)
[2021-12-25 23:00] VITALS: BP 135/60; PULSE 76; O2SAT 98
[2021-12-25 23:31] VITALS: BP 124/84; PULSE 96; O2SAT 96
--- NOTE | 2021-12-25 23:32 | HMH.EDABDPAI ---
Discharge Plan Disposition Patient Disposition: Home, Self-Care Chief Complaint: Abdominal Pain Prescriptions Prescriptions: No Action sennosides-docusate sodium [Senexon-S] 8.6-50 mg tablet 1 tab PO NEEDED PRN (Reason: BOWELS) Latuda 40 mg tablet 40 mg PO DAILY Qty: 30 10RF Rx Instructions: TAKE 1 TABLET BY MOUTH ONCE DAILY ; MUST ADMINISTER WITH FOOD (AT LEAST 350 CALORIES) pregabalin [Lyrica] 300 mg capsule 300 mg PO BID PRN (Reason: pain) Qty: 60 1RF ondansetron 4 mg tablet,disintegrating 4 mg PO Q8HP PRN (Reason: n/v) Qty: 45 6RF dicyclomine 20 mg tablet 20 mg PO oxycodone 5 mg tablet 5 mg PO Q8H PRN (Reason: pain) Qty: 21 0RF Rx Instructions: okay to fill today lorazepam 1 mg tablet 1 mg PO DAILY PRN (Reason: anxiety) Qty: 7 0RF venlafaxine 150 mg capsule,extended release 24hr See Rx Instructions .ROUTE .COMPLEX Qty: 30 0RF Dose Instruction: TAKE 1 CAPSULE BY MOUTH ONCE DAILY FOR DEPRESSION Rx Instructions: TAKE 1 CAPSULE BY MOUTH ONCE DAILY FOR DEPRESSION pantoprazole [Protonix] 40 mg tablet,delayed release (DR/EC) 40 mg PO DAILY promethazine 25 MG tablet 25 mg PO Q6H PRN (Reason: Nausea And Vomiting) Qty: 10 0RF Referrals Follow up/Referrals: Elmo Escobar MD [Primary Care Provider] - See instructions Clinical Impressions Clinical Impression: Acute lower GI bleeding Instructions Patient Instructions: Gastrointestinal Bleeding Discharge ED Provider: George Mckinley Abdominal Pain HPI General Chief Complaint: Abdominal Pain Stated Complaint: Rectal Bleeding,lower left side pain Time Seen by Provider: 12/25/21 23:32 Mode of Arrival: Ambulatory Source of Information: Patient and Medical Record Limitations: No Limitations Description of Symptoms (Recalled from ER Triage Doc. by RN): pt states yesterday when pt goes to bathroom pt has bright red blood in toilet and when wiping. pt also c/o LLQ pain History of Present Illness HPI narrative: brrb with crampy abd pain on lt x 2 days complaint: abdominal pain Onset (ago): day(s) Consistency: intermittent Location: LLQ Severity: moderate Associated symptoms: hematochezia Related Data Home Medications Medication Instructions Recorded Confirmed sennosides 8.6 mg-docusate sodium 1 tab PO NEEDED PRN BOWELS 05/28/21 12/23/21 50 mg tablet (Senexon-S) pantoprazole 40 mg tablet,delayed 40 mg PO DAILY GERD 10/17/21 12/23/21 release (Protonix) dicyclomine 20 mg tablet 20 mg PO 12/23/21 12/23/21 Previous Rx's Medication Instructions Recorded promethazine 25 mg tablet 25 mg PO Q6H PRN Nausea And 09/28/21 Vomiting #10 tabs lurasidone 40 mg tablet (Latuda) 40 mg PO DAILY Depression #30 tabs 11/26/21 pregabalin 300 mg capsule (Lyrica) 300 mg PO BID PRN pain #60 caps 11/26/21 venlafaxine 150 mg See Rx Instructions .Route 12/02/21 capsule,extended release 24 hr .COMPLEX #30 caps ondansetron 4 mg disintegrating 4 mg PO Q8HP PRN n/v #45 tabs 12/17/21 tablet lorazepam 1 mg tablet 1 mg PO DAILY PRN anxiety #7 tabs 12/23/21 oxycodone 5 mg tablet 5 mg PO Q8H PRN pain #21 tabs 12/23/21 Allergies Allergy/AdvReac Type Severity Reaction Status Date / Time tramadol Allergy Mild Rash Verified 12/23/21 14:36 droperidol AdvReac Intermediate jaw go Verified 12/23/21 14:36 sideways PFSH PFSH Medical History Anxiety Depressed Fibromyalgia Gallbladder disease History of fracture of hand compartment sydrome History of gastroesophageal reflux (GERD) Osteoarthritis Overactive bladder Pancreatitis Surgical History History of cholecystectomy History of colonoscopy Hx of dilation and curettage Hx of endoscopic retrograde cholangiopancreatography Hx of esophagogastroduodenoscopy Family History (Reviewed 12/17/21 @ 08:16 by Lissette Squires S
[2021-12-26 00:37] VITALS: BP 110/71; PULSE 85; RESP 16; TEMP 36.7; O2SAT 100
== END 2021-12-26 00:40 | disposition home or self-care (01) ==
PROVIDERS: Emergency Provider Emergency Medicine; PCP Family Medicine
DX: K92.1 Melena (principal); R10.32 Left lower quadrant pain; K82.9 Disease of gallbladder, unspecified; N32.81 Overactive bladder; K85.90 Acute pancreatitis without necrosis or infection, unspecified; R11.2 Nausea with vomiting, unspecified; K21.9 Gastro-esophageal reflux disease without esophagitis; M79.7 Fibromyalgia; M19.90 Unspecified osteoarthritis, unspecified site; F32.A Depression, unspecified; F41.9 Anxiety disorder, unspecified; F17.210 Nicotine dependence, cigarettes, uncomplicated; Z88.6 Allergy status to analgesic agent; Z88.8 Allergy status to other drugs, medicaments and biological substances; Z79.899 Other long term (current) drug therapy; Z82.49 Family history of ischemic heart disease and other diseases of the circulatory system; Z83.438 Family history of other disorder of lipoprotein metabolism and other lipidemia
CPT/HCPCS: 74177; 80053; 81001; 81025; 83690; 84145; 85025; 85651; 86140; 90471; 96361; 96374; 96375; 99285; J2405; Q9967

== ENCOUNTER → 2022-04-03 09:00 | Outpatient (CLI) | payer BC, SELFPAY ==
[2022-04-03 14:56] LABS: Amphetamine/Metha Screen,Urine Negative ng/ml (<1000); Barbiturates Screen,Urine Negative ng/ml (<200); Benzodiazepines Screen,Urine Positive ng/ml (<200); Cannabinoid Screen,Urine Positive ng/ml (<50); Cocaine Screen,Urine Negative ng/ml (<300); Methadone Screen,Urine Negative ng/ml (<300); Opiate Screen,Urine Negative ng/ml (<300); Phencyclidine Screen,Urine Negative ng/ml (<25)
== END ==
PROVIDERS: PCP Family Medicine; Visit Provider Family Medicine
DX: Z79.899 Other long term (current) drug therapy (principal)
CPT/HCPCS: 80305

== ENCOUNTER 2022-05-20 20:48 | Emergency (ER) | payer BC, SELFPAY ==
[2022-05-20 20:48] VITALS: BP 163/106; PULSE 98; RESP 16; TEMP 36.7; O2SAT 98; BMI 39.1
[2022-05-20 21:17] LABS: Microscopic, Urine URINE MICROSCOPIC (MICROSCOPIC)
[2022-05-20 21:21] LABS: Appearance,Urine CLEAR (Clear); Bilirubin,Urine Negative (Negative); Blood, Urine TRACE-L (Negative); Color,Urine YELLOW (Yellow); Glucose,Urine (UA) Negative (Negative); Ketones,Urine Negative (Negative); Leukocyte Esterase,Urine Negative (Negative); Nitrate,Urine Negative (Negative); PH,Urine 5.5 (5.0-8.5); Protein,Urine Negative (Negative); Specific Gravity, Urine >= 1.030 (1.005-1.030); Urobilinogen,Urine 0.2 EU/dl (0.2)
[2022-05-20 21:25] LABS: Urine Pregnancy, HCG Qual. Negative (Negative)
--- NOTE | 2022-05-20 21:25 | PC.NURSE ---
Rounded on patient, no needs voiced at this time.
[2022-05-20 21:30] LABS: Basophils # 0.1 K/mm3 (0-0.2); Basophils % 1.2 % (0.1-2.0); Eosinophils # 0.1 K/mm3 (0.0-0.4); Eosinophils % 0.8 % (0.1-12.0); Hematocrit 37.9 % (37.0-47.0); Hemoglobin 12.6 g/dL (12.2-16.2); Lymphocytes # 2.1 K/mm3 (0.7-4.5); Lymphocytes % 30.6 % (10-50); Mean Corpuscular HGB Conc 33.3 g/dL (31.8-35.4); Mean Corpuscular Hemoglobin 27.3 pg (27.0-31.2); Mean Corpuscular Volume 81.8 fl (81-99); Mean Platelet Volume 8.4 fl (7.4-10.4); Monocytes # 0.3 K/mm3 (0.1-1.0); Monocytes % 4.3 % (1.7-9.3); Neutrophils # 4.2 K/mm3 (1.8-7.8); Platelet Count 261 K/mm3 (142-424); Red Blood Count 4.63 M/mm3 (4.20-5.40); Red Cell Distribution Width 15.9 % (11.5-17.5); White Blood Count 6.7 K/mm3 (4.8-10.8)
--- NOTE | 2022-05-20 21:30 | PC.NURSE ---
Patient had 3 ultrasound guided IV attempts which all ultimately infiltrated. After not being successful, I asked another RN to attempt.
[2022-05-20 21:33] LABS: RBC,Urine Occasional #/hpf (0-3); Squamous Epithelial Cell,Urine Occasional #/hpf (0-5)
[2022-05-20 21:43] LABS: Alanine Aminotransferase 39 U/L (12-78); Albumin Level 4.6 g/dl (3.5-5.0); Albumin/Globulin Ratio 1.6 (1.1-1.8); Alkaline Phosphatase 95 U/L (38-126); Amylase 82 U/L (30-110); Aspartate Amino Transferase 30 U/L (14-36); Bilirubin,Total 0.4 mg/dl (0.2-1.3); Blood Urea Nitrogen 6 mg/dl (7-17); Calcium 8.9 mg/dl (8.4-10.2); Carbon Dioxide 25 mmol/L (22.0-30.0); Chloride 104 mmol/L (98-107); Creatinine Clearance Estimated 220 mL/min (50-200); Estimated Glomerular Filt Rate 114 ml/min (>60); GFR (African American) 138 ML/MIN (>60); Globulin 2.8 g/dL (1.3-3.2); Glucose 99 mg/dl (74-100); Lipase 136 U/L (23-300); Sodium 139 mmol/L (136-145); Total Protein,Serum 7.4 g/dl (6.3-8.2)
--- NOTE | 2022-05-20 22:02 | HMH.EDABDPAI ---
Discharge Plan Disposition Patient Disposition: Home, Self-Care Chief Complaint: Abdominal Pain Prescriptions Prescriptions: No Action sennosides-docusate sodium [Senexon-S] 8.6-50 mg tablet 1 tab PO NEEDED PRN (Reason: BOWELS) Creon 24,000-76,000 -120,000 unit capsule,delayed release(DR/EC) 2 cap PO QID Qty: 240 3RF Rx Instructions: administer with meals and/or snacks ondansetron HCl 4 mg tablet 4 mg PO TID PRN (Reason: nausea and vomiting) Qty: 90 3RF ondansetron 4 mg tablet,disintegrating 4 mg PO TID PRN (Reason: nausea and vomiting) Qty: 60 1RF oxycodone-acetaminophen [Percocet] 5-325 mg tablet 1 tab PO Q8H PRN (Reason: pain) Qty: 42 0RF lorazepam 1 mg tablet 1 mg PO DAILY PRN (Reason: anxiety) 14 Days Qty: 14 0RF Linzess 145 mcg capsule 145 mcg PO DAILY Qty: 90 3RF pantoprazole [Protonix] 40 mg tablet,delayed release (DR/EC) 40 mg PO DAILY Qty: 90 3RF pregabalin [Lyrica] 300 mg capsule 300 mg PO BID PRN (Reason: pain) Qty: 60 0RF promethazine 25 MG tablet 25 mg PO Q6H PRN (Reason: Nausea And Vomiting) Qty: 10 0RF Referrals Follow up/Referrals: Elmo Escobar MD [Primary Care Provider] - See instructions Clinical Impressions Clinical Impression: Gastroenteritis Instructions Patient Instructions: DI for Acute Abdominal Pain Discharge ED Provider: Elías WRIGHT)George Abdominal Pain HPI General Chief Complaint: Abdominal Pain Stated Complaint: V&D Abd pain Time Seen by Provider: 05/20/22 22:02 Mode of Arrival: Ambulatory Source of Information: Patient and Medical Record Limitations: No Limitations Description of Symptoms (Recalled from ER Triage Doc. by RN): pt c/o n/v/d and abd pain since this am. pt scheduled to see dr wall on 05/29 History of Present Illness HPI narrative: has vomiting and diarrhea w/o blood or fever - hx of pancreatitis - MD complaint: abdominal pain Onset (ago): hour(s) Consistency: intermittent Location: diffuse Severity: moderate Associated symptoms: diarrhea Related Data Home Medications Medication Instructions Recorded Confirmed sennosides 8.6 mg-docusate sodium 1 tab PO NEEDED PRN BOWELS 05/28/21 05/13/22 50 mg tablet (Senexon-S) Previous Rx's Medication Instructions Recorded promethazine 25 mg tablet 25 mg PO Q6H PRN Nausea And 09/28/21 Vomiting #10 tabs [id number] 2 cap PO QID #240 caps 01/24/22 24,000-76,000-120,000 unit capsule,delayed rel (Creon) ondansetron HCl 4 mg tablet 4 mg PO TID PRN nausea and 01/24/22 vomiting #90 tabs pantoprazole 40 mg tablet,delayed 40 mg PO DAILY GERD #90 tabs 04/01/22 release (Protonix) ondansetron 4 mg disintegrating 4 mg PO TID PRN nausea and 04/15/22 tablet vomiting #60 tabs linaclotide 145 mcg capsule 145 mcg PO DAILY #90 caps 05/13/22 (Linzess) lorazepam 1 mg tablet 1 mg PO DAILY PRN anxiety 2 weeks 05/13/22 #14 tabs oxycodone-acetaminophen 5 mg-325 1 tab PO Q8H PRN pain #42 tabs 05/13/22 mg tablet (Percocet) pregabalin 300 mg capsule (Lyrica) 300 mg PO BID PRN pain #60 caps 05/20/22 Allergies Allergy/AdvReac Type Severity Reaction Status Date / Time tramadol Allergy Mild Rash Verified 05/13/22 11:12 droperidol AdvReac Intermediate jaw go Verified 05/13/22 11:12 sideways PFSH PFS Disclaimer: The information contained in this section may have been updated after the patient was seen, as this information can be updated by other users. Medical History Anxiety Depressed Fibromyalgia Gallbladder disease History of fracture of hand compartment sydrome History of gastroesophageal reflux (GERD) Osteoarthritis Overactive bladder Pancreatitis Surgical History History of cholecystectomy History of colonoscopy Hx of dilation and curettage Hx of endoscopic retrograde cholangiopancreatography H
[2022-05-20 22:15] VITALS: BP 137/84; PULSE 85; RESP 20; TEMP 36.9
[2022-05-20 22:25] LABS: Adenovirus F 40/41, stool Not Detected (NotDetected); Astrovirus Not Detected (NotDetected); Campylobacter Not Detected (NotDetected); Clostridium Difficile A/B, PCR Not Detected (NotDetected); Cryptosporidium Not Detected (NotDetected); Cyclospora Cayetanesis Not Detected (NotDetected); Entamoeba histolytica Not Detected (NotDetected); Enteroaggregative E coli Not Detected (NotDetected); Enteropathogenic E coli Not Detected (NotDetected); Enterotoxigenic E coli Not Detected (NotDetected); Giardia lamblia Not Detected (NotDetected); Norovirus Not Detected (NotDetected); Plesimonas Shigalloides, PCR Not Detected (NotDetected); Rotavirus A Not Detected (NotDetected); Salmonella, PCR Not Detected (NotDetected); Sapovirus Not Detected (NotDetected); Shiga-like toxin E coli Not Detected (NotDetected); Shigella Enterovasive E coli Not Detected (NotDetected); Vibrio Cholerae Not Detected (NotDetected); Vibrio, PCR Not Detected (NotDetected); Yersinia Entercolitica, PCR Not Detected (NotDetected)
== END 2022-05-20 22:54 | disposition home or self-care (01) ==
PROVIDERS: Emergency Provider Emergency Medicine; PCP Family Medicine
DX: R10.9 Unspecified abdominal pain (principal); R11.2 Nausea with vomiting, unspecified; R19.7 Diarrhea, unspecified
CPT/HCPCS: 80053; 81001; 81025; 82150; 83690; 85025; 87507; 96360; 96374; 96375; 99284; 99285; J0131; J2405

== ENCOUNTER → 2022-07-01 13:04 | Outpatient (CLI) | payer BC, SELFPAY ==
[2022-07-01 11:41] LABS: Adenovirus,PCR Not Detected (NotDetected); Bordetella Pertussis Not Detected (NotDetected); Chlamydophila Pneumoniae, PCR Not Detected (NotDetected); Coronavirus 229E Not Detected (NotDetected); Coronavirus NL63 Not Detected (NotDetected); Coronavirus OC43 Not Detected (NotDetected); Coronovirus HKU1,PCR Not Detected (NotDetected); Human Metapneumovirus Not Detected (NotDetected); Influenza A, PCR Not Detected (NotDetected); Influenza AH1, 2009 Not Detected (NotDetected); Influenza AH1, PCR Not Detected (NotDetected); Influenza AH3,PCR Not Detected (NotDetected); Influenza B, PCR Not Detected (NotDetected); Mycoplasma Pneumoniae, PCR Not Detected (NotDetected); Parainfluenza 1, PCR Not Detected (NotDetected); Parainfluenza 2, PCR Not Detected (NotDetected); Parainfluenza 3, PCR Not Detected (NotDetected); Parainfluenza 4, PCR Not Detected (NotDetected); Respiratory Syncytial Virus Not Detected (NotDetected); Rhinovirus/Enterovirus Not Detected (NotDetected)
[2022-07-01 13:33] LABS: Coronavirus 19, PCR Detected (NotDetected)
== END ==
PROVIDERS: PCP Nurse Practitioner Family; Visit Provider Nurse Practitioner Family
DX: U07.1 COVID-19 (principal); R05.9 Cough, unspecified
CPT/HCPCS: 87581; 87632; 87798; C9803; U0003; U0005

== ENCOUNTER 2022-07-28 17:46 | Emergency (ER) | payer BC, SELFPAY ==
[2022-07-28 17:46] VITALS: BP 146/101; PULSE 112; RESP 24; TEMP 36.7; O2SAT 97; BMI 39.9
--- NOTE | 2022-07-28 17:58 | HMH.EDGENADL ---
Discharge Plan Disposition Patient Disposition: Home, Self-Care Condition: Fair Chief Complaint: Overdose Prescriptions Prescriptions: No Action ondansetron 4 mg tablet,disintegrating 4 mg PO TID PRN (Reason: nausea and vomiting) Qty: 60 1RF sucralfate [Carafate] 100 mg/mL suspension 10 ml PO QID Label Comments: TAKE 10 ML 4 TIMES A DAY BY ORAL ROUTE FOR 30 DAYS. promethazine 12.5 mg tablet 12.5 mg PO NEEDED PRN (Reason: Nausea) Creon 6,000-19,000 -30,000 unit capsule,delayed release(DR/EC) 1 cap PO NEEDED PRN (Reason: pancreititis) naloxone 4 mg/actuation spray,non-aerosol 1 spray intranasal NEEDED PRN (Reason: drug overdose) prochlorperazine maleate [Compazine] 10 mg tablet 10 mg PO Q8H PRN (Reason: nausea and vomiting) Qty: 90 3RF hydroxyzine pamoate 50 mg capsule 50 mg PO TID PRN (Reason: anxiety) Qty: 90 10RF pantoprazole [Protonix] 40 mg tablet,delayed release (DR/EC) 40 mg PO QID Qty: 180 10RF tramadol 50 mg tablet 50 mg PO Q8H PRN (Reason: pain) Qty: 45 1RF amitriptyline 25 mg tablet 25 mg PO HS PRN (Reason: sleep) Qty: 90 3RF pregabalin [Lyrica] 300 mg capsule 300 mg PO BID PRN (Reason: pain) Qty: 60 1RF nystatin 100,000 unit/mL suspension 5 ml PO QID Rx Instructions: swish and swallow Referrals Follow up/Referrals: Provider,Referral, MD [Primary Care Provider] - See instructions Activity Restrictions/Add. Instructions Additional Instructions/Restrictions: You have been evaluated for accidental medication overdose. Please monitor your symptoms closely. Take medications only as prescribed by your doctor. Avoid medications or substances that are not prescription. Please follow-up with your primary care doctor in 1 to 2 days for symptom recheck and to discuss anxiety management. Return to the emergency department at once for any new or worsening symptoms, sedation, shortness of breath, thoughts of hurting yourself or anyone else, any other concerns Clinical Impressions Clinical Impression: Accidental medication overdose, Marijuana use Discharge ED Provider: Flower,Sheyla General Adult HPI General Chief complaint: Overdose Stated complaint: Overdose Time Seen by Provider: 07/28/22 17:49 Mode of Arrival: EMS Source of Information: Patient and EMS Limitations: No Limitations History of Present Illness HPI narrative: 36-year-old female presenting to the emergency department with possible overdose. Incident happened just prior to arrival. She was feeling unwell, lightheaded. Administered 8 mg of intranasal Narcan to herself. [place] much more awake after, but now feels generally unwell, jittery. She is prescribed tramadol for her chronic pancreatitis. Has been on this medication for only a few days. She felt like it was not working in the prescribed dose, so she took 400 mg. Also smokes marijuana. Calpine sedated, tired, lethargic. That is why she administered the naloxone. She denies any chest pain or difficulty breathing. She was having upper abdominal pain earlier today. Not worse than her chronic pain. No fevers, vomiting. Related Data Home Medications Medication Instructions Recorded Confirmed promethazine 12.5 mg tablet 12.5 mg PO NEEDED PRN Nausea 07/01/22 07/28/22 sucralfate 100 mg/mL oral 10 ml PO QID abdominal pain 07/01/22 07/28/22 suspension (Carafate) [id number] 1 cap PO NEEDED PRN pancreititis 07/25/22 07/28/22 6,000-19,000-30,000 unit capsule,delayed rel (Creon) naloxone 4 mg/actuation nasal spray 1 spray intranasal NEEDED PRN 07/25/22 07/28/22 drug overdose nystatin 100,000 unit/mL oral 5 ml PO QID yeast infection 07/28/22 07/28/22 suspension Previous Rx's Medication Instructions Recorded ondansetron 4 mg disintegrating 4 mg PO TID PRN nausea and 04/15/22 tablet vomiting #60 tabs pregabalin 300 mg capsule (Lyrica) 300 mg PO BID PRN pain #60 caps
[2022-07-28 18:00] VITALS: BP 140/88; PULSE 108; RESP 18; O2SAT 96
[2022-07-28 18:11] LABS: Chloride 102 mmol/L (98-107); Potassium 3.3 mmoL/L (3.5-5.1); Sodium 136 mmol/L (136-145)
[2022-07-28 18:13] LABS: Alanine Aminotransferase 63 U/L (12-78); Alkaline Phosphatase 106 U/L (38-126); Aspartate Amino Transferase 42 U/L (14-36); Bilirubin,Total 0.3 mg/dl (0.2-1.3); Blood Urea Nitrogen 7 mg/dl (7-17); Creatinine Clearance Estimated 270 mL/min (50-200); Estimated Glomerular Filt Rate 140 ml/min (>60); GFR (African American) 170 ML/MIN (>60)
[2022-07-28 18:14] LABS: Albumin Level 3.5 g/dl (3.5-5.0); Albumin/Globulin Ratio 1.3 (1.1-1.8); Anion Gap 12.3 mEq/L (5-15); Calcium 8.5 mg/dl (8.4-10.2); Carbon Dioxide 25 mmol/L (22.0-30.0); Globulin 2.6 g/dL (1.3-3.2); Glucose 82 mg/dl (74-100); Lipase 46 U/L (23-300); Total Protein,Serum 6.1 g/dl (6.3-8.2)
[2022-07-28 18:18] LABS: Basophils # 0.1 K/mm3 (0-0.2); Basophils % 0.9 % (0.1-2.0); Eosinophils # 0.1 K/mm3 (0.0-0.4); Eosinophils % 1.8 % (0.1-12.0); Hematocrit 30.7 % (37.0-47.0); Hemoglobin 10.1 g/dL (12.2-16.2); Lymphocytes # 2.3 K/mm3 (0.7-4.5); Lymphocytes % 36.4 % (10-50); Mean Corpuscular HGB Conc 32.8 g/dL (31.8-35.4); Mean Corpuscular Hemoglobin 27.4 pg (27.0-31.2); Mean Corpuscular Volume 83.6 fl (81-99); Monocytes # 0.3 K/mm3 (0.1-1.0); Monocytes % 4.5 % (1.7-9.3); Neutrophils # 3.5 K/mm3 (1.8-7.8); Neutrophils % 56.3 % (37.0-80.0); Platelet Count 218 K/mm3 (142-424); Red Blood Count 3.68 M/mm3 (4.20-5.40); Red Cell Distribution Width 15.9 % (11.5-17.5); White Blood Count 6.2 K/mm3 (4.8-10.8)
--- NOTE | 2022-07-28 18:32 | PC.NURSE ---
Rounded on pt. She states she is feeling better. She is sitting up eating ice chips, vitals are stable.
--- NOTE | 2022-07-28 19:04 | PC.NURSE ---
Rounded on patient, notified RN of patients concern at this time.
--- NOTE | 2022-07-28 19:08 | PC.NURSE ---
Poison control contacted. Spoke with Leta. She recommended a UDS, EKG, CMP, and Tylenol/ aspirin level, and to monitor for [address] Maddox notified. Orders placed.
--- NOTE | 2022-07-28 19:18 | ECG_ITS ---
APPROVED REPORT Exam: Resting ECG HR:101 bpm ECG Measurements Heart Rate 101 AXES WA 145 P 36 QRSd 101 QRS 50 QT 359 T 13 QTc 417 Conclusion SINUS TACHYCARDIA ISOLATED Q WAVE IN III LATE R WAVE PROGRESSION o/w NORMAL RHYTHM ECG UNCONFIRMED REPORT Electronically signed by : Darren Mcdaniel MD 07/31/2022 09:33:15
--- NOTE | 2022-07-28 19:56 | PC.NURSE ---
Assisted patient to bathroom at this time.
[2022-07-28 20:00] LABS: Salicylate < 1.0 mg/dL (2.0-20.0)
[2022-07-28 20:01] LABS: Acetaminophen < 10 ug/ml (10-30)
[2022-07-28 20:11] VITALS: BP 140/85; PULSE 104; RESP 18; TEMP 36.6; O2SAT 99
[2022-07-28 20:19] LABS: Benzodiazepines Screen,Urine Negative ng/ml (<200)
[2022-07-28 20:20] LABS: Amphetamine/Metha Screen,Urine Negative ng/ml (<1000); Barbiturates Screen,Urine Negative ng/ml (<200)
[2022-07-28 20:21] LABS: Cannabinoid Screen,Urine Positive ng/ml (<50)
[2022-07-28 20:22] LABS: Cocaine Screen,Urine Negative ng/ml (<300); Methadone Screen,Urine Negative ng/ml (<300)
[2022-07-28 20:23] LABS: Opiate Screen,Urine Negative ng/ml (<300); Phencyclidine Screen,Urine Negative ng/ml (<25)
== END 2022-07-28 20:14 | disposition home or self-care (01) ==
PROVIDERS: Emergency Provider Emergency Medicine
DX: T40.421A Poisoning by tramadol, accidental (unintentional), initial encounter (principal); F12.90 Cannabis use, unspecified, uncomplicated; K85.90 Acute pancreatitis without necrosis or infection, unspecified; F17.210 Nicotine dependence, cigarettes, uncomplicated; R00.0 Tachycardia, unspecified
CPT/HCPCS: 80053; 80305; 80329; 83690; 85025; 93005; 99285

== ENCOUNTER 2022-10-01 18:57 | Emergency (ER) | payer BC, SELFPAY ==
--- NOTE | 2022-10-01 18:56 | ECG_ITS ---
APPROVED REPORT Exam: Resting ECG HR:109 bpm ECG Measurements Heart Rate 109 AXES CA 124 P 51 QRSd 91 QRS 70 QT 343 T 23 QTc 407 Conclusion SINUS TACHYCARDIA LOW QRS VOLTAGE IN PRECORDIAL LEADS [QRS DEFLECTION < 1.0 mV IN CHEST LEADS] ABNORMAL RHYTHM ECG UNCONFIRMED REPORT Electronically signed by : Darren Mcdaniel MD 10/02/2022 13:51:48
[2022-10-01 18:59] VITALS: BP 195/118; PULSE 111; RESP 19; TEMP 36.8; O2SAT 99; BMI 38.2
[2022-10-01 19:01] VITALS: BP 153/71; PULSE 117; RESP 17; O2SAT 97
--- NOTE | 2022-10-01 19:17 | XR_ITS ---
PROCEDURE INFORMATION: Exam: XR Chest Exam date and time: 10/01/2022 7:24 PM Age: 36 years old Clinical indication: Shortness of breath; Additional info: SOA TECHNIQUE: Imaging protocol: Radiologic exam of the chest. Views: 1 view. COMPARISON: CR XR ACUTE ABDOMEN SERIES 06/28/2020 21:46 FINDINGS: Lungs: Low lung volumes with associated vascular crowding and bibasilar atelectasis. Pleural spaces: Unremarkable. No pleural effusion. No pneumothorax. Heart/Mediastinum: Unremarkable. No cardiomegaly. Bones/joints: Unremarkable. IMPRESSION: Low lung volumes with associated vascular crowding and bibasilar atelectasis. Superimposed aspiration or atypical infection cannot be entirely excluded.
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
[2022-10-01 19:30] VITALS: BP 132/86; PULSE 104; RESP 12; O2SAT 99
[2022-10-01 19:46] LABS: Alanine Aminotransferase 27 U/L (12-78); Albumin Level 4.6 g/dl (3.5-5.0); Albumin/Globulin Ratio 1.3 (1.1-1.8); Alkaline Phosphatase 111 U/L (38-126); Anion Gap 16.2 mEq/L (5-15); Aspartate Amino Transferase 29 U/L (14-36); Bilirubin,Total 0.6 mg/dl (0.2-1.3); Blood Urea Nitrogen 12 mg/dl (7-17); Calcium 9.4 mg/dl (8.4-10.2); Carbon Dioxide 24 mmol/L (22.0-30.0); Chloride 103 mmol/L (98-107); Creatinine Clearance Estimated 185 mL/min (50-200); Estimated Glomerular Filt Rate 95 ml/min (>60); GFR (African American) 115 ML/MIN (>60); Globulin 3.6 g/dL (1.3-3.2); Glucose 128 mg/dl (74-100); Magnesium 1.9 mg/dl (1.6-2.3); Potassium 3.2 mmoL/L (3.5-5.1); Sodium 140 mmol/L (136-145); Total Protein,Serum 8.2 g/dl (6.3-8.2)
[2022-10-01 19:49] LABS: HCG Qualitative, Serum Negative (Negative)
[2022-10-01 19:50] LABS: D-Dimer 0.85 ug/mL (0.0-0.5)
[2022-10-01 19:52] LABS: Basophils # 0.1 K/mm3 (0-0.2); Basophils % 0.7 % (0.1-2.0); Eosinophils # 0.1 K/mm3 (0.0-0.4); Eosinophils % 0.6 % (0.1-12.0); Hematocrit 39.6 % (37.0-47.0); Hemoglobin 12.5 g/dL (12.2-16.2); Lymphocytes # 2.1 K/mm3 (0.7-4.5); Lymphocytes % 26.6 % (10-50); Mean Corpuscular HGB Conc 31.6 g/dL (31.8-35.4); Mean Corpuscular Hemoglobin 25.8 pg (27.0-31.2); Mean Corpuscular Volume 81.6 fl (81-99); Mean Platelet Volume 8.2 fl (7.4-10.4); Monocytes # 0.3 K/mm3 (0.1-1.0); Monocytes % 4.3 % (1.7-9.3); Neutrophils # 5.4 K/mm3 (1.8-7.8); Neutrophils % 67.8 % (37.0-80.0); Platelet Count 317 K/mm3 (142-424); Red Blood Count 4.85 M/mm3 (4.20-5.40); Red Cell Distribution Width 16.5 % (11.5-17.5); White Blood Count 7.9 K/mm3 (4.8-10.8)
[2022-10-01 20:07] LABS: Troponin I < 0.01 ng/ml (0.00-0.034)
--- NOTE | 2022-10-01 20:10 | CT_ITS ---
PROCEDURE INFORMATION: Exam: CTA Chest With Contrast Exam date and time: 10/01/2022 8:37 PM Age: 36 years old Clinical indication: Abnormal findings; Abnormal diagnostic tests; Elevated d-dimer; Additional info: Tachy, anxiety, elevated dimer TECHNIQUE: Imaging protocol: Computed tomographic angiography of the chest with contrast. Exam focused on the arteries. 3D rendering (Not supervised by radiologist): MIP and/or 3D reconstructed images were created by the technologist. Radiation optimization: All CT scans at this facility use at least one of these dose optimization techniques: automated exposure control; mA and/or kV adjustment per patient size (includes targeted exams where dose is matched to clinical indication); or iterative reconstruction. Contrast material: ISOVUE; Contrast volume: 70 ml; Contrast route: INTRAVENOUS (IV); REPORTING DATA: Count of CT and Cardiac NM exams in prior 12 months: This patient has received [address] and 0 known cardiac nuclear medicine studies in the 12 months prior to the current study. COMPARISON: CR XR CHEST PORTABLE 10/31/2022 19:24 FINDINGS: Pulmonary arteries: Evaluation of the pulmonary arteries is limited to the segmental arterial level due to poor bolus timing. Aorta: Unremarkable. No aortic aneurysm. No aortic dissection. Lungs: Mild scarring and atelectasis in the lower lungs. There is a 5 mm right middle lobe pulmonary nodule on image 51 series 5. Pleural spaces: Unremarkable. No pneumothorax. No pleural effusion. Heart: Unremarkable. No cardiomegaly. No pericardial effusion. Lymph nodes: Unremarkable. No enlarged lymph nodes. Gallbladder and bile ducts: Gallbladder is absent. Bones/joints: Unremarkable. No acute fracture. Soft tissues: There is a 1.9 cm nodule in the right breast on image 63 series 5. IMPRESSION: 1. Evaluation of the pulmonary arteries is limited to the segmental arterial level due to poor bolus timing. Within the limitations of the study, no pulmonary emboli. 2. There is a 1.9 cm nodule in the right breast on image 63 series 5. Follow-up ultrasound and bilateral diagnostic mammography is recommended. 3. There is a 5 mm right middle lobe pulmonary nodule on image 51 series 5. For patients at low risk (minimal or absent history of smoking and of other known risk factors), no routine follow-up is indicated. For patients at high risk (history of smoking or of other known risk factors), consider optional CT Chest at 12 months. (Reference: Lucille) REFERENCES: Lucille Bowen et al. Guidelines for Management of Incidental Pulmonary Nodules Detected on CT Images: From the Fleischner Society 2017. Radiology. 2017;284(1):228-243.
[2022-10-01 20:18] LABS: Thyroid Stimulating Hormone 1.96 uIU/mL (0.465-4.68)
[2022-10-01 21:33] VITALS: BP 124/72; PULSE 93; RESP 18; TEMP 36.7
== END 2022-10-01 21:34 | disposition home or self-care (01) ==
PROVIDERS: Emergency Provider Emergency Medicine; PCP Family Medicine
DX: R07.89 Other chest pain (principal); R51.9 Headache, unspecified; F41.9 Anxiety disorder, unspecified; F17.210 Nicotine dependence, cigarettes, uncomplicated
CPT/HCPCS: 71045; 71275; 80053; 83735; 84443; 84484; 84703; 85025; 85378; 93005; 96374; 96376; 99285; Q9967

== ENCOUNTER 2022-10-02 12:47 | Emergency (ER) | payer BC, SELFPAY ==
[2022-10-02 13:03] VITALS: BP 134/87; PULSE 112; RESP 20; TEMP 36.7; O2SAT 99; BMI 33.0
--- NOTE | 2022-10-02 13:11 | HMH.EDGENADL ---
Discharge Plan Disposition Patient Disposition: Home, Self-Care Prescriptions Prescriptions: New hydroxyzine pamoate [Vistaril] 25 mg capsule 25 mg PO Q8H PRN (Reason: anxiety ) 7 Days Qty: 21 0RF Referrals Follow up/Referrals: Elmo Escobar MD [Primary Care Provider] - See instructions Activity Restrictions/Add. Instructions Additional Instructions/Restrictions: Please follow-up with your psychiatrist and with Dr. Escobar as instructed. Return with any concerns. Clinical Impressions Clinical Impression: Anxiety Discharge ED Provider: Ash Squires General Adult HPI General Stated complaint: possible panic attack, soa Time Seen by Provider: 10/02/22 13:01 History of Present Illness HPI narrative: 36-year-old female who was here yesterday evening for a panic attack presents today with multiple complaints. Apparently there was a miscommunication from our documentation from her visit yesterday to her primary care doctor's office and they initially refused to see her in follow-up. This is coming from the family member and from the patient however after multiple discussions with the clinic they are agreeable to see the patient next . Additionally the patient states that she has been unable to get a psychiatry appointment here at [facility] and would like help with that. She states that her panic and anxiety are very severe and she has no medications and that Dr. Escobar will not refill her anxiety medicine specifically her Ativan until seeing her next . She states that she would just like something to help until that time. She denies any other new or acute somatic symptoms. Related Data Previous Rx's Medication Instructions Recorded hydroxyzine pamoate 25 mg capsule 25 mg PO Q8H PRN anxiety 7 days 10/02/22 (Vistaril) #21 caps Allergies Allergy/AdvReac Type Severity Reaction Status Date / Time droperidol AdvReac Intermediate jaw go Verified 09/25/22 12:26 sideways [facility] Disclaimer: The information contained in this section may have been updated after the patient was seen, as this information can be updated by other users. Medical History Abdominal pain Acute lower GI bleeding Acute pancreatitis Alcohol consumption binge drinking Anxiety Depressed Epigastric pain Gallbladder disease Gastroenteritis History of fracture of hand compartment sydrome History of gastroesophageal reflux (GERD) Impetigo Left upper quadrant pain Nausea vomiting and diarrhea Osteoarthritis Overactive bladder Patient left without being seen Rupture of cyst of right ovary Sinusitis Thrush Surgical History History of cholecystectomy History of colonoscopy Hx of dilation and curettage Hx of endoscopic retrograde cholangiopancreatography Hx of esophagogastroduodenoscopy Family History Other Family history of acute congestive heart failure Family history of hyperlipidemia Family history of hypertension Social History Smoking Status: Current every day smoker tobacco type: cigarettes packs per day: 1 pack-years: 20 years smoked: 20 second hand exposure: No alcohol intake: former substance use type: former substance user and marijuana current occupational status: unemployed Travel in the last 8 weeks: None household members: significant other, family and children housing: house marital status: single number of children: 3 education level: high school caffeine: No special jeanette needs: No agree to transfusion: No do you feel safe at home: Yes victim of physical abuse: No victim of emotional abuse: No victim of sexual abuse: No would you like helpful sources: No ROS Obtained: Yes All systems reviewed & no additional complain
[2022-10-02 13:27] VITALS: BP 131/80; PULSE 102; RESP 20; TEMP 36.7; O2SAT 99
== END 2022-10-02 13:32 | disposition home or self-care (01) ==
PROVIDERS: Emergency Provider Student in an Organized Health Care Education/Training Program; PCP Family Medicine
DX: F41.9 Anxiety disorder, unspecified (principal); F32.A Depression, unspecified; F17.210 Nicotine dependence, cigarettes, uncomplicated
CPT/HCPCS: 99283

== ENCOUNTER 2022-10-16 03:48 | Emergency (ER) | payer BC, SELFPAY ==
[2022-10-16 03:53] VITALS: BP 148/94; PULSE 112; RESP 18; TEMP 36.9; O2SAT 97; BMI 40.6
[2022-10-16 04:33] LABS: Appearance,Urine CLEAR (Clear); Bilirubin,Urine Negative (Negative); Blood, Urine Negative (Negative); Color,Urine YELLOW (Yellow); Glucose,Urine (UA) Negative (Negative); Ketones,Urine Negative (Negative); Leukocyte Esterase,Urine Negative (Negative); Microscopic, Urine URINE MICROSCOPIC (MICROSCOPIC); Nitrate,Urine Negative (Negative); Protein,Urine Negative (Negative); Specific Gravity, Urine 1.025 (1.005-1.030); Urobilinogen,Urine 0.2 EU/dl (0.2)
[2022-10-16 04:38] VITALS: BP 0/0; PULSE 0; RESP 0; TEMP -17.7; TEMP 0
--- NOTE | 2022-10-16 04:38 | HMH.EDABDPAI ---
Discharge Plan Disposition Patient Disposition: Eloped Condition: Undetermined Chief Complaint: Abdominal Pain Prescriptions Prescriptions: No Action pregabalin [Lyrica] 300 mg capsule 300 mg PO BID PRN (Reason: pain) Qty: 60 1RF lorazepam 2 mg tablet 2 mg PO BID PRN (Reason: anxiety) Qty: 14 3RF hydroxyzine pamoate [Vistaril] 25 mg capsule 25 mg PO Q8H PRN (Reason: anxiety ) 7 Days Qty: 21 0RF Referrals Follow up/Referrals: Elmo Escobar MD [Primary Care Provider] - See instructions Clinical Impressions Clinical Impression: Left against medical advice, [place] Instructions Patient Instructions: DI for Acute Abdominal Pain Discharge ED Provider: Benny Nolasco Abdominal Pain HPI General Chief Complaint: Abdominal Pain Stated Complaint: admpain, diarhea, vomiting Time Seen by Provider: 10/16/22 03:55 Mode of Arrival: Ambulatory Source of Information: Patient Limitations: No Limitations Description of Symptoms (Recalled from ER Triage Doc. by RN): Upper left abd pain, N/V/D that started 10/15 1600. History of Present Illness HPI narrative: 36-year-old female history of anxiety, reported chronic pancreatitis presents with left upper quadrant and epigastric pain radiating to her back with associated nausea. She reports this feels similar to prior pancreatitis. She presents that she was trying to sleep but could not and so came to our ER. Related Data Previous Rx's Medication Instructions Recorded hydroxyzine pamoate 25 mg capsule 25 mg PO Q8H PRN anxiety 7 days 10/02/22 (Vistaril) #21 caps lorazepam 2 mg tablet 2 mg PO BID PRN anxiety #14 tabs 10/13/22 pregabalin 300 mg capsule (Lyrica) 300 mg PO BID PRN pain #60 caps 10/13/22 Allergies Allergy/AdvReac Type Severity Reaction Status Date / Time droperidol AdvReac Intermediate jaw go Verified 10/13/22 09:01 sideways [facility] Disclaimer: The information contained in this section may have been updated after the patient was seen, as this information can be updated by other users. Medical History Abdominal pain Acute lower GI bleeding Acute pancreatitis Alcohol consumption binge drinking Anxiety Depressed Epigastric pain Gallbladder disease Gastroenteritis History of fracture of hand compartment sydrome History of gastroesophageal reflux (GERD) Impetigo Left upper quadrant pain Nausea vomiting and diarrhea Osteoarthritis Overactive bladder Patient left without being seen Rupture of cyst of right ovary Sinusitis Thrush Surgical History History of cholecystectomy History of colonoscopy Hx of dilation and curettage Hx of endoscopic retrograde cholangiopancreatography Hx of esophagogastroduodenoscopy Family History Other Family history of acute congestive heart failure Family history of hyperlipidemia Family history of hypertension Social History Smoking Status: Current every day smoker tobacco type: cigarettes packs per day: 1 pack-years: 20 years smoked: 20 second hand exposure: No alcohol intake: former substance use type: former substance user and marijuana current occupational status: unemployed Travel in the last 8 weeks: None household members: significant other, family and children housing: house marital status: single number of children: 3 education level: high school caffeine: No special jeanette needs: No agree to transfusion: No do you feel safe at home: Yes victim of physical abuse: No victim of emotional abuse: No victim of sexual abuse: No would you like helpful sources: No ROS Obtained: Yes All systems reviewed & no additional complaints except as documented Physical Exam General General appearance: alert, in no a
[2022-10-16 04:46] LABS: Bacteria,Urine 1+ /lpf; Mucus,Urine 1+ /lpf
== END 2022-10-16 04:29 | disposition left against medical advice (07) ==
PROVIDERS: Emergency Provider Emergency Medicine; PCP Family Medicine
DX: R19.7 Diarrhea, unspecified (principal); R10.9 Unspecified abdominal pain; Z76.5 Malingerer [conscious simulation]; F41.9 Anxiety disorder, unspecified; F32.A Depression, unspecified; F17.210 Nicotine dependence, cigarettes, uncomplicated
CPT/HCPCS: 81001; 96374; 96375; 99285

== ENCOUNTER 2022-11-30 16:44 | Emergency (ER) | payer BC, SELFPAY ==
[2022-11-30 16:45] VITALS: BP 138/92; PULSE 86; RESP 23; TEMP 36.7; O2SAT 99; BMI 38.9
[2022-11-30 17:21] VITALS: BP 138/95; PULSE 88; RESP 20; TEMP 36.7; O2SAT 97
--- NOTE | 2022-11-30 17:21 | HMH.EDGENADL ---
Discharge Plan Disposition Patient Disposition: Home, Self-Care Prescriptions Prescriptions: No Action pregabalin [Lyrica] 300 mg capsule 300 mg PO BID PRN (Reason: pain) Qty: 60 1RF ondansetron 4 mg tablet,disintegrating 4 mg PO Q8H Qty: 60 3RF oxycodone 5 mg tablet 5 mg PO DAILY PRN (Reason: pain) Qty: 10 0RF lorazepam 2 mg tablet 2 mg PO BID PRN (Reason: anxiety) Qty: 14 3RF Referrals Follow up/Referrals: Elmo Escobar MD [Primary Care Provider] - See instructions Activity Restrictions/Add. Instructions Additional Instructions/Restrictions: Take your previously prescribed lorazepam and/or your hydroxyzine as needed at home also please follow-up with your psychiatrist or with Dr. Escobar. Clinical Impressions Clinical Impression: Panic attack Discharge ED Provider: Ash Squires General Adult HPI General Chief complaint: Anxiety Stated complaint: poss anxiety attack Time Seen by Provider: 11/30/22 17:15 Mode of Arrival: Family Vehicle Source of Information: Patient Limitations: No Limitations Description of Symptoms (Recalled from ER Triage Doc. by RN): Pt c/o panic attack. States she has a hx of anxiety and takes PRN Ativan PO, however pt was not able to find it d/t her her mother is moving tomorrow and boxes and stuff is everywhere . She reports that she has tried a cold shower and it has not helped. She is shaky and feeling tingling at different parts of her body at intermittently. She is SOA when it get real bad . Denies any dyspnea. She also has not taken any chronic pain medication today as it was not needed today . Pt reports to be flushed and sweating intermittenly as well. She also began to take a new engery supplement today, reportedly has a lot of caffine in it but that doesn't cause panic attacks . History of Present Illness HPI narrative: Patient is a 36-year-old female with a history of anxiety and panic attacks presenting today with a panic attack. She states that she has been unable to find her lorazepam due to moving and has 2 refills on it but has not been able to take it today and she is feeling like she is having a panic attack right now describing it as shortness of breath as well as to severe anxiety and panic feelings. She states this feels very similar to panic attack she had in the past. She feels as if she could have a medication that she would feel much better. She denies any other significant symptoms. Only other thing historical finding is that she had a lot of caffeine today but this historically does not cause her to have worsening panic. Related Data Previous Rx's Medication Instructions Recorded pregabalin 300 mg capsule (Lyrica) 300 mg PO BID PRN pain #60 caps 10/13/22 ondansetron 4 mg disintegrating 4 mg PO Q8H #60 tabs 11/03/22 tablet lorazepam 2 mg tablet 2 mg PO BID PRN anxiety #14 tabs 11/19/22 oxycodone 5 mg tablet 5 mg PO DAILY PRN pain #10 tabs 11/27/22 Allergies Allergy/AdvReac Type Severity Reaction Status Date / Time droperidol AdvReac Intermediate jaw go Verified 11/27/22 13:04 sideways PFS PFS Disclaimer: The information contained in this section may have been updated after the patient was seen, as this information can be updated by other users. Medical History Abdominal pain Acute lower GI bleeding Acute pancreatitis Alcohol consumption binge drinking Anxiety Depressed Epigastric pain Gallbladder disease Gastroenteritis History of fracture of hand compartment sydrome History of gastroesophageal reflux (GERD) Impetigo Left upper quadrant pain Nausea vomiting and diarrhea Osteoarthritis Overactive bladder Patient left without being seen Rupture of cyst of right ovary Sinusitis Thrush Surgical History History of cholecystectomy History of colonoscopy Hx of dilation and curettage Hx of endoscopic ret
== END 2022-11-30 17:38 | disposition home or self-care (01) ==
PROVIDERS: Emergency Provider Student in an Organized Health Care Education/Training Program; PCP Family Medicine
DX: F41.0 Panic disorder [episodic paroxysmal anxiety] (principal); F17.210 Nicotine dependence, cigarettes, uncomplicated; F32.A Depression, unspecified
CPT/HCPCS: 99283

== ENCOUNTER 2022-12-05 16:53 | Emergency (ER) | payer BC, SELFPAY ==
--- NOTE | 2022-12-05 17:12 | PC.NURSE ---
Pt was unable to void a this time
--- NOTE | 2022-12-05 17:14 | HMH.EDGENADL ---
Discharge Plan Disposition Patient Disposition: Home, Self-Care Prescriptions Prescriptions: New prochlorperazine maleate [Compazine] 10 mg tablet 10 mg PO Q6H PRN (Reason: nausea and vomiting) 1 Days Qty: 20 0RF No Action pregabalin [Lyrica] 300 mg capsule 300 mg PO BID PRN (Reason: pain) Qty: 60 1RF lorazepam 2 mg tablet 2 mg PO BID PRN (Reason: anxiety) Qty: 14 3RF Referrals Follow up/Referrals: Elmo Escobar MD [Primary Care Provider] - See instructions Activity Restrictions/Add. Instructions Additional Instructions/Restrictions: Call your family doctor to establish care for this visit to the emergency department and schedule follow-up within 48 hours to ensure improvement. If you have any worsening of your condition or any other concerning signs or symptoms, return to the emergency department or your primary care doctor for further evaluation. Phenergan as prescribed as needed. Clinical Impressions Clinical Impression: Nausea & vomiting Qualifiers: Vomiting type: unspecified Qualified Code(s): R11.2 - Nausea with vomiting, unspecified Instructions Patient Instructions: DI for Acute Abdominal Pain Discharge ED Provider: Bacilio Laguerre General Adult HPI General Chief complaint: Abdominal Pain Stated complaint: abd pain Time Seen by Provider: 12/05/22 16:58 History of Present Illness HPI narrative: 36-year-old female [facility] remains highly, among others, hnpu-[id number] activity, gastritis, gallstone pancreatitis status postcholecystectomy without secondary complications, but numerous bouts of pancreatitis presenting with abdominal pain. Started 3 to 4 hours prior to arrival. She was eating pizza when it started. It was acute, left upper quadrant, stabbing. Patient states that she was seen at a couple days prior to arrival for similar pain, however at that time it was throbbing and not stabbing. Currently, unrelenting, 10 out of 10, associated with vomiting is nonbloody, nonbilious as well as diarrhea that is watery, nonbloody. Patient not having fevers, dysuria, hematuria, vaginal discharge or bleeding, chest pain, shortness of breath, or any other concerns at this time. Pain is made better with curling up in position, made worse with lying backward and extending her back. Related Data Previous Rx's Medication Instructions Recorded lorazepam 2 mg tablet 2 mg PO BID PRN anxiety #14 tabs 11/19/22 pregabalin 300 mg capsule (Lyrica) 300 mg PO BID PRN pain #60 caps 12/05/22 prochlorperazine maleate 10 mg 10 mg PO Q6H PRN nausea and 12/05/22 tablet (Compazine) vomiting 24 hours #20 tabs Allergies Allergy/AdvReac Type Severity Reaction Status Date / Time droperidol AdvReac Intermediate jaw go Verified 12/05/22 13:08 sideways [facility] Disclaimer: The information contained in this section may have been updated after the patient was seen, as this information can be updated by other users. Medical History Abdominal pain Acute lower GI bleeding Acute pancreatitis Alcohol consumption binge drinking Anxiety Depressed Epigastric pain Gallbladder disease Gastroenteritis History of fracture of hand compartment sydrome History of gastroesophageal reflux (GERD) Impetigo Left upper quadrant pain Nausea vomiting and diarrhea Osteoarthritis Overactive bladder Patient left without being seen Rupture of cyst of right ovary Sinusitis Thrush Surgical History History of cholecystectomy History of colonoscopy Hx of dilation and curettage Hx of endoscopic retrograde cholangiopancreatography Hx of esophagogastroduodenoscopy Family History Other Family history of acute congestive heart failure Family history of hyperlip
[2022-12-05 17:40] VITALS: BP 133/90; PULSE 110; RESP 20; TEMP 36.6; O2SAT 95; BMI 29.9
[2022-12-05 17:46] LABS: Basophils # 0.1 K/mm3 (0-0.2); Eosinophils # 0.2 K/mm3 (0.0-0.4); Hematocrit 39.4 % (37.0-47.0); Hemoglobin 13.7 g/dL (12.2-16.2); Lymphocytes # 2.4 K/mm3 (0.7-4.5); Lymphocytes % 29.6 % (10-50); Mean Corpuscular HGB Conc 34.8 g/dL (31.8-35.4); Mean Corpuscular Hemoglobin 28.3 pg (27.0-31.2); Mean Corpuscular Volume 81.4 fl (81-99); Mean Platelet Volume 7.7 fl (7.4-10.4); Monocytes # 0.4 K/mm3 (0.1-1.0); Monocytes % 5.2 % (1.7-9.3); Neutrophils # 5.1 K/mm3 (1.8-7.8); Neutrophils % 62.2 % (37.0-80.0); Platelet Count 266 K/mm3 (142-424); Red Blood Count 4.84 M/mm3 (4.20-5.40); Red Cell Distribution Width 17.2 % (11.5-17.5); White Blood Count 8.1 K/mm3 (4.8-10.8)
[2022-12-05 17:53] LABS: Alanine Aminotransferase 32 U/L (12-78); Albumin Level 4.5 g/dl (3.5-5.0); Albumin/Globulin Ratio 1.3 (1.1-1.8); Alkaline Phosphatase 91 U/L (38-126); Anion Gap 14.2 mEq/L (5-15); Aspartate Amino Transferase 46 U/L (14-36); Bilirubin,Total 0.3 mg/dl (0.2-1.3); Blood Urea Nitrogen 17 mg/dl (7-17); Calcium 9.5 mg/dl (8.4-10.2); Carbon Dioxide 23 mmol/L (22.0-30.0); Chloride 106 mmol/L (98-107); Creatinine Clearance Estimated 145 mL/min (50-200); Estimated Glomerular Filt Rate 95 ml/min (>60); GFR (African American) 115 ML/MIN (>60); Globulin 3.5 g/dL (1.3-3.2); Glucose 105 mg/dl (74-100); Lipase 195 U/L (23-300); Potassium 4.2 mmoL/L (3.5-5.1); Sodium 139 mmol/L (136-145)
[2022-12-05 17:54] LABS: Lactic Acid 1.4 mmol/L (0.7-2.1)
[2022-12-05 18:00] VITALS: BP 135/94; PULSE 104; RESP 20; O2SAT 94
[2022-12-05 18:22] LABS: HCG,Quantitative < 2 mIU/ml (0-5.42)
[2022-12-05 18:30] LABS: Microscopic, Urine URINE MICROSCOPIC (MICROSCOPIC)
[2022-12-05 18:39] VITALS: BP 125/77; PULSE 103; O2SAT 96
--- NOTE | 2022-12-05 18:41 | PC.NURSE ---
Rounded on pt. Advised she was still in pain and feels like someone is stabbing me Dr. Laguerre notified.
[2022-12-05 18:56] LABS: Appearance,Urine CLEAR (Clear); Bilirubin,Urine Negative (Negative); Blood, Urine Negative (Negative); Color,Urine YELLOW (Yellow); Glucose,Urine (UA) Negative (Negative); Ketones,Urine TRACE (Negative); Leukocyte Esterase,Urine Negative (Negative); Nitrate,Urine Negative (Negative); Protein,Urine Negative (Negative); Specific Gravity, Urine >= 1.030 (1.005-1.030); Urobilinogen,Urine 0.2 EU/dl (0.2)
[2022-12-05 19:31] LABS: Squamous Epithelial Cell,Urine Occasional #/hpf (0-5); WBC,Urine Occasional #/hpf (0-3)
[2022-12-05 19:52] VITALS: BP 107/86; PULSE 72; RESP 19; TEMP 36.8; O2SAT 98
[2022-12-05 20:02] VITALS: BP 130/78; PULSE 80; RESP 18; TEMP 36.8
== END 2022-12-05 20:03 | disposition home or self-care (01) ==
PROVIDERS: Emergency Provider Emergency Medicine; PCP Family Medicine
DX: R10.9 Unspecified abdominal pain (principal); R11.2 Nausea with vomiting, unspecified; K85.90 Acute pancreatitis without necrosis or infection, unspecified; K21.9 Gastro-esophageal reflux disease without esophagitis; F41.9 Anxiety disorder, unspecified; F32.A Depression, unspecified; E66.9 Obesity, unspecified
CPT/HCPCS: 80053; 81001; 83605; 83690; 84702; 85025; 96361; 96374; 96375; 99285; J0131; J2405

== ENCOUNTER → 2022-12-10 13:55 | Outpatient (CLI) | payer BC, SELFPAY ==
[2022-12-10 13:01] LABS: Blood Urea Nitrogen 8 mg/dl (7-17); Calcium 9.4 mg/dl (8.4-10.2); Carbon Dioxide 20 mmol/L (22.0-30.0); Chloride 105 mmol/L (98-107); Estimated Glomerular Filt Rate 140 ml/min (>60); GFR (African American) 170 ML/MIN (>60); Glucose 96 mg/dl (74-100); Sodium 139 mmol/L (136-145)
[2022-12-10 13:32] LABS: Thyroid Stimulating Hormone 0.72 uIU/mL (0.465-4.68)
[2022-12-10 13:41] LABS: 25-OH Vitamin D, Total 25.9 ng/mL (30-100)
== END ==
PROVIDERS: PCP Internal Medicine; Visit Provider Internal Medicine
DX: R53.83 Other fatigue (principal); E55.9 Vitamin D deficiency, unspecified
CPT/HCPCS: 36415; 80048; 82306; 84443

== ENCOUNTER → 2022-12-15 07:53 | Outpatient (CLI) | payer BC, SELFPAY ==
--- NOTE | 2022-12-15 07:57 | XR_ITS ---
FINAL REPORT CLINICAL HISTORY: right knee instability COMPARISON: none FINDINGS: RIGHT KNEE: 4 views of the right knee obtained. There is no acute fracture or dislocation. The joint spaces are intact.. There is no soft tissue abnormality. IMPRESSION: No acute fracture Reviewed, Interpreted and Dictated by Hayder Alston III, MD Transcribed by Mireya Paige Authenticated and . [facility]
== END ==
PROVIDERS: PCP Internal Medicine; Visit Provider Internal Medicine
DX: M25.561 Pain in right knee (principal)
CPT/HCPCS: 73564

== ENCOUNTER 2023-01-03 17:50 | Emergency (ER) | payer BC, SELFPAY ==
[2023-01-03 18:01] VITALS: BP 145/120; PULSE 119; O2SAT 99
[2023-01-03 18:25] LABS: Microscopic, Urine URINE MICROSCOPIC (MICROSCOPIC)
[2023-01-03 18:29] LABS: Appearance,Urine CLEAR (Clear); Bilirubin,Urine Negative (Negative); Blood, Urine Negative (Negative); Color,Urine YELLOW (Yellow); Glucose,Urine (UA) Negative (Negative); Ketones,Urine Negative (Negative); Leukocyte Esterase,Urine Negative (Negative); Nitrate,Urine Negative (Negative); Protein,Urine Negative (Negative); Urobilinogen,Urine 0.2 EU/dl (0.2)
--- NOTE | 2023-01-03 18:47 | HMH.EDGENADL ---
Discharge Plan Disposition Patient Disposition: Home, Self-Care Condition: Good Prescriptions Prescriptions: No Action pregabalin [Lyrica] 300 mg capsule 300 mg PO BID 30 Days Qty: 60 1RF olanzapine 7.5 mg tablet 7.5 mg PO HS 30 Days Qty: 30 2RF duloxetine 60 mg capsule,delayed release(DR/EC) 60 mg PO DAILY 30 Days Qty: 30 2RF oxycodone 10 mg tablet 10 mg PO QID PRN (Reason: chronic pancreatitis pain) 30 Days Qty: 120 0RF cholecalciferol (vitamin D3) 125 mcg (5,000 unit) capsule 125 mcg PO DAILY 60 Days Qty: 60 3RF lorazepam 2 mg tablet 2 mg PO BID PRN (Reason: anxiety and panic attacks) 30 Days Qty: 60 0RF prochlorperazine maleate [Compazine] 10 mg tablet 10 mg PO Q6H PRN (Reason: nausea and vomiting) 1 Days Qty: 20 0RF Referrals Follow up/Referrals: Rafiq Song DO [Primary Care Provider] - See instructions Activity Restrictions/Add. Instructions Additional Instructions/Restrictions: You were evaluated in the emergency department today. It is very important that she keep close follow-up with your primary care father and pain management to further control your pain on an outpatient basis. Return to the emergency department for new or worsening symptoms. Clinical Impressions Clinical Impression: Chronic pancreatitis Instructions Patient Instructions: DI for Acute Abdominal Pain Discharge ED Provider: Svetlana Sanchez General Adult HPI General Chief complaint: Abdominal Pain Stated complaint: Abdominal Pain with vomiting Time Seen by Provider: 01/03/23 18:08 History of Present Illness HPI narrative: This patient is a 37-year-old female who is well-known to the emergency department with chronic pancreatitis presented to the emergency department with concern for pancreatitis flare. She states that this feels the same as all of her pancreatitis flares. She states she is a currently awaiting an outpatient pain management referral, but she is taking her home oxycodone for this pain with last dose 3 hours ago with no improvement. She states she had 3 episodes of emesis since onset just a few hours ago. Pain is in the epigastric and left upper quadrant regions. No other concerns noted at this time. No new features. Related Data Previous Rx's Medication Instructions Recorded prochlorperazine maleate 10 mg 10 mg PO Q6H PRN nausea and 10/13/23 tablet (Compazine) vomiting 24 hours #20 tabs cholecalciferol (vitamin D3) 125 125 mcg PO DAILY 60 days #60 caps 12/10/22 mcg (5,000 unit) capsule duloxetine 60 mg capsule,delayed 60 mg PO DAILY 30 days #30 caps 12/10/22 release olanzapine 7.5 mg tablet 7.5 mg PO HS 30 days #30 tabs 12/10/22 oxycodone 10 mg tablet 10 mg PO QID PRN chronic 12/10/22 pancreatitis pain 30 days #120 tabs pregabalin 300 mg capsule (Lyrica) 300 mg PO BID pain 30 days #60 caps 12/10/22 lorazepam 2 mg tablet 2 mg PO BID PRN anxiety and panic 12/18/22 attacks 30 days #60 tabs Allergies Allergy/AdvReac Type Severity Reaction Status Date / Time droperidol AdvReac Intermediate jaw go Verified 12/15/22 08:43 sideways PFS PFS Disclaimer: The information contained in this section may have been updated after the patient was seen, as this information can be updated by other users. Medical History Abdominal pain Acute lower GI bleeding Acute pancreatitis Alcohol consumption binge drinking Anxiety Depressed Epigastric pain Gallbladder disease Gastroenteritis History of fracture of hand History of gastroesophageal reflux (GERD) Impetigo Left upper quadrant pain Nausea vomiting and diarrhea Osteoarthritis Overactive bladder Patient left without being seen Rupture of cyst of right ovary Sinusitis Thrush Surgical History History of cholecystectomy History of colonoscopy Hx of dilation and curettage Hx of endoscopic retrograde ch
[2023-01-03 18:51] LABS: Chloride 107 mmol/L (98-107); Potassium 4.1 mmoL/L (3.5-5.1); Sodium 139 mmol/L (136-145)
[2023-01-03 18:52] VITALS: BP 150/113; PULSE 104; RESP 20; TEMP 36.8; O2SAT 99; BMI 38.9
[2023-01-03 18:53] LABS: HCG Qualitative, Serum Negative (Negative)
[2023-01-03 18:54] LABS: Alanine Aminotransferase 38 U/L (12-78); Albumin/Globulin Ratio 1.4 (1.1-1.8); Alkaline Phosphatase 83 U/L (38-126); Anion Gap 12.1 mEq/L (5-15); Aspartate Amino Transferase 37 U/L (14-36); Bilirubin,Total 0.1 mg/dl (0.2-1.3); Blood Urea Nitrogen 9 mg/dl (7-17); Calcium 9.3 mg/dl (8.4-10.2); Carbon Dioxide 24 mmol/L (22.0-30.0); Estimated Glomerular Filt Rate 113 ml/min (>60); GFR (African American) 137 ML/MIN (>60); Globulin 2.9 g/dL (1.3-3.2); Glucose 99 mg/dl (74-100); Lipase 49 U/L (23-300); Total Protein,Serum 6.9 g/dl (6.3-8.2)
[2023-01-03 18:58] LABS: Basophils % 0.7 % (0.1-2.0); Eosinophils # 0.1 K/mm3 (0.0-0.4); Eosinophils % 2.5 % (0.1-12.0); Hematocrit 39.3 % (37.0-47.0); Hemoglobin 13.1 g/dL (12.2-16.2); Lymphocytes # 1.8 K/mm3 (0.7-4.5); Lymphocytes % 33.7 % (10-50); Mean Corpuscular HGB Conc 33.5 g/dL (31.8-35.4); Mean Corpuscular Hemoglobin 27.5 pg (27.0-31.2); Mean Corpuscular Volume 82.2 fl (81-99); Mean Platelet Volume 8.4 fl (7.4-10.4); Monocytes # 0.2 K/mm3 (0.1-1.0); Monocytes % 3.9 % (1.7-9.3); Neutrophils # 3.2 K/mm3 (1.8-7.8); Neutrophils % 59.3 % (37.0-80.0); Platelet Count 221 K/mm3 (142-424); Red Blood Count 4.77 M/mm3 (4.20-5.40); Red Cell Distribution Width 16.5 % (11.5-17.5); White Blood Count 5.4 K/mm3 (4.8-10.8)
[2023-01-03 19:09] LABS: Bacteria,Urine Trace /lpf
[2023-01-03 19:27] VITALS: BP 149/98; PULSE 85; O2SAT 97
[2023-01-03 20:01] VITALS: BP 136/96; PULSE 85; O2SAT 99
[2023-01-03 22:05] VITALS: BP 130/83; PULSE 73; RESP 20; TEMP 36.8; O2SAT 98
== END 2023-01-03 22:06 | disposition home or self-care (01) ==
PROVIDERS: Emergency Provider Emergency Medicine; PCP Internal Medicine
DX: R10.13 Epigastric pain (principal); R11.10 Vomiting, unspecified; K86.1 Other chronic pancreatitis
CPT/HCPCS: 80053; 81001; 83690; 84703; 85025; 96360; 96361; 96374; 96375; 96376; 99285; J2405

== ENCOUNTER → 2023-01-05 10:24 | Outpatient (CLI) | payer BC, SELFPAY ==
[2023-01-05 18:38] LABS: Amphetamine/Metha Screen,Urine Negative ng/ml (<1000)
[2023-01-05 18:39] LABS: Barbiturates Screen,Urine Negative ng/ml (<200); Benzodiazepines Screen,Urine Negative ng/ml (<200)
[2023-01-05 18:40] LABS: Cannabinoid Screen,Urine Positive ng/ml (<50)
[2023-01-05 18:41] LABS: Cocaine Screen,Urine Negative ng/ml (<300); Methadone Screen,Urine Negative ng/ml (<300)
[2023-01-05 18:42] LABS: Opiate Screen,Urine Negative ng/ml (<300)
[2023-01-05 18:43] LABS: Phencyclidine Screen,Urine Negative ng/ml (<25)
== END ==
PROVIDERS: PCP Internal Medicine; Visit Provider Internal Medicine
DX: Z79.899 Other long term (current) drug therapy (principal)
CPT/HCPCS: 80305

== ENCOUNTER 2023-01-31 20:02 | Emergency (ER) | payer BC, SELFPAY ==
[2023-01-31] VITALS (7 sets, daily range): BP systolic 120–150; BP diastolic 80–109; PULSE 80–145; RESP 14–29; TEMP 36.8–36.9; O2SAT 93–98; BMI 39.9
--- NOTE | 2023-01-31 20:14 | HMH.EDGENADL ---
Discharge Plan Disposition Patient Disposition: Home, Self-Care Prescriptions Prescriptions: New promethazine 25 mg suppository 25 mg [place] Q6H PRN (Reason: nausea and vomiting) Qty: 12 0RF No Action olanzapine 7.5 mg tablet 7.5 mg PO HS 30 Days Qty: 30 2RF duloxetine 60 mg capsule,delayed release(DR/EC) 60 mg PO DAILY 30 Days Qty: 30 2RF cholecalciferol (vitamin D3) 125 mcg (5,000 unit) capsule 125 mcg PO DAILY 60 Days Qty: 60 3RF oxycodone 10 mg tablet 10 mg PO QID PRN (Reason: chronic pancreatitis pain) 30 Days Qty: 120 0RF pregabalin [Lyrica] 300 mg capsule 300 mg PO BID 30 Days Qty: 60 1RF lorazepam 2 mg tablet 2 mg PO BID PRN (Reason: anxiety and panic attacks) 30 Days Qty: 60 0RF prochlorperazine maleate [Compazine] 10 mg tablet 10 mg PO Q6H PRN (Reason: nausea and vomiting) 1 Days Qty: 20 0RF Referrals Follow up/Referrals: Rafiq Song DO [Primary Care Provider] - See instructions Activity Restrictions/Add. Instructions Additional Instructions/Restrictions: Please follow-up with your primary care provider. Please return to the emergency department if you develop any new or worsening symptoms or become concerned for your health. I wrote you a prescription for rectal Phenergan. Please take as needed for nausea and vomiting at home. Clinical Impressions Clinical Impression: Nausea vomiting and diarrhea Instructions Patient Instructions: DI for Acute Abdominal Pain Discharge ED Provider: Benny Nolasco Adult HPI General Chief complaint: Abdominal Pain Stated complaint: abdominal pain, weakness Time Seen by Provider: 01/31/23 20:05 History of Present Illness HPI narrative: 37-year-old female, history of chronic pancreatitis presents with concern for recurrent severe pancreatitis. She reports that her abdominal pain has been worsening significantly over the last few days. She says she has been unable to tolerate any oral intake. Anything she does take goes right through her and she has diarrhea. She reports pain is epigastric in nature consistent with prior episodes. 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 She denies fever. Denies chest pain, shortness of breath. Of note, I have seen this patient before this ER. At that time she was complaining of similar symptoms but lied about having been seen at other hospitals earlier that day. She had been seen at and at [place] that same day and had left AMA after they had refused to give her IV opiates. Related Data Previous Rx's Medication Instructions Recorded prochlorperazine maleate 10 mg 10 mg PO Q6H PRN nausea and 12/05/22 tablet (Compazine) vomiting 24 hours #20 tabs cholecalciferol (vitamin D3) 125 125 mcg PO DAILY 60 days #60 caps 12/10/22 mcg (5,000 unit) capsule duloxetine 60 mg capsule,delayed 60 mg PO DAILY 30 days #30 caps 12/10/22 release olanzapine 7.5 mg tablet 7.5 mg PO HS 30 days #30 tabs 12/10/22 oxycodone 10 mg tablet 10 mg PO QID PRN chronic 01/05/23 pancreatitis pain 30 days #120 tabs pregabalin 300 mg capsule (Lyrica) 300 mg PO BID pain 30 days #60 caps 01/06/23 lorazepam 2 mg tablet 2 mg PO BID PRN anxiety and panic 01/13/23 attacks 30 days #60 tabs promethazine 25 mg rectal 25 mg [place] Q6H PRN nausea and 01/31/23 suppository vomiting #12 ea Allergies Allergy/AdvReac Type Severity Reaction Status Date / Time droperidol AdvReac Intermediate jaw go Verified 01/05/23 10:39 sideways [facility] Disclaimer: The information contained in this section may have been updated after the patient was seen, as this information can be updated by other users. Medical History Abdominal pain Acute lower GI bleeding Acute pancreatitis Alcohol consumption binge drinking Anxiety Depressed Epigastric pain Gallblad
--- NOTE | 2023-01-31 20:18 | ECG_ITS ---
APPROVED REPORT Exam: Resting ECG HR:127 bpm ECG Measurements Heart Rate 127 AXES MA 136 P 43 QRSd 92 QRS 68 QT 335 T 14 QTc 410 Conclusion SINUS TACHYCARDIA MODERATE ST DEPRESSION [0.05+ mV ST DEPRESSION] ABNORMAL ECG UNCONFIRMED REPORT Electronically signed by : Darren Mcdaniel MD 02/01/2023 14:17:21
[2023-01-31 20:25] LABS: Basophils # 0.1 K/mm3 (0-0.2); Basophils % 1.2 % (0.1-2.0); Eosinophils # 0.2 K/mm3 (0.0-0.4); Eosinophils % 1.9 % (0.1-12.0); Hematocrit 41.8 % (37.0-47.0); Lymphocytes # 3.1 K/mm3 (0.7-4.5); Lymphocytes % 38.5 % (10-50); Mean Corpuscular HGB Conc 33.6 g/dL (31.8-35.4); Mean Corpuscular Hemoglobin 27.4 pg (27.0-31.2); Mean Corpuscular Volume 81.7 fl (81-99); Mean Platelet Volume 8.3 fl (7.4-10.4); Monocytes # 0.4 K/mm3 (0.1-1.0); Monocytes % 4.4 % (1.7-9.3); Neutrophils # 4.4 K/mm3 (1.8-7.8); Neutrophils % 54.1 % (37.0-80.0); Platelet Count 248 K/mm3 (142-424); Red Blood Count 5.11 M/mm3 (4.20-5.40); Red Cell Distribution Width 16.9 % (11.5-17.5); White Blood Count 8.1 K/mm3 (4.8-10.8)
[2023-01-31 20:28] LABS: Chloride 107 mmol/L (98-107); Potassium 3.4 mmoL/L (3.5-5.1); Sodium 139 mmol/L (136-145)
[2023-01-31 20:30] LABS: Alanine Aminotransferase 29 U/L (12-78); Alkaline Phosphatase 95 U/L (38-126); Anion Gap 14.4 mEq/L (5-15); Aspartate Amino Transferase 28 U/L (14-36); Bilirubin,Total 0.5 mg/dl (0.2-1.3); Blood Urea Nitrogen 15 mg/dl (7-17); Carbon Dioxide 21 mmol/L (22.0-30.0); Creatinine Clearance Estimated 223 mL/min (50-200); Estimated Glomerular Filt Rate 113 ml/min (>60); GFR (African American) 137 ML/MIN (>60); Lipase 168 U/L (23-300)
[2023-01-31 20:31] LABS: Albumin Level 4.6 g/dl (3.5-5.0); Albumin/Globulin Ratio 1.6 (1.1-1.8); Calcium 9.2 mg/dl (8.4-10.2); Globulin 2.9 g/dL (1.3-3.2); Glucose 127 mg/dl (74-100); Magnesium 1.7 mg/dl (1.6-2.3); Total Protein,Serum 7.5 g/dl (6.3-8.2)
--- NOTE | 2023-01-31 20:55 | PC.NURSE ---
pt given wet wash cloth
== END 2023-01-31 22:37 | disposition home or self-care (01) ==
PROVIDERS: Emergency Provider Emergency Medicine; PCP Internal Medicine
DX: R10.13 Epigastric pain (principal); R00.0 Tachycardia, unspecified; R11.2 Nausea with vomiting, unspecified; R19.7 Diarrhea, unspecified; K86.1 Other chronic pancreatitis; F17.210 Nicotine dependence, cigarettes, uncomplicated
CPT/HCPCS: 80053; 83690; 83735; 85025; 93005; 96361; 96374; 96375; 96376; 99285; J2405

== ENCOUNTER 2023-02-01 16:21 | Emergency (ER) | payer BC, SELFPAY ==
[2023-02-01 16:22] VITALS: BP 148/95; PULSE 97; RESP 16; TEMP 36.8; O2SAT 97; BMI 39.9
--- NOTE | 2023-02-01 16:40 | HMH.EDGENADL ---
Discharge Plan Disposition Patient Disposition: Home, Self-Care Prescriptions Prescriptions: No Action olanzapine 7.5 mg tablet 7.5 mg PO HS 30 Days Qty: 30 2RF duloxetine 60 mg capsule,delayed release(DR/EC) 60 mg PO DAILY 30 Days Qty: 30 2RF cholecalciferol (vitamin D3) 125 mcg (5,000 unit) capsule 125 mcg PO DAILY 60 Days Qty: 60 3RF oxycodone 10 mg tablet 10 mg PO QID PRN (Reason: chronic pancreatitis pain) 30 Days Qty: 120 0RF pregabalin [Lyrica] 300 mg capsule 300 mg PO BID 30 Days Qty: 60 1RF lorazepam 2 mg tablet 2 mg PO BID PRN (Reason: anxiety and panic attacks) 30 Days Qty: 60 0RF prochlorperazine maleate [Compazine] 10 mg tablet 10 mg PO Q6H PRN (Reason: nausea and vomiting) 1 Days Qty: 20 0RF promethazine 25 mg suppository 25 mg [place] Q6H PRN (Reason: nausea and vomiting) Qty: 12 0RF Referrals Follow up/Referrals: Rafiq Song DO [Primary Care Provider] - See instructions Activity Restrictions/Add. Instructions Additional Instructions/Restrictions: Your CT scan showed that your stomach is fluid-filled. This may be a result of gastroparesis related to chronic opiate use. Recommend further evaluation with a GI doctor. Your CT scan also showed an complex left ovarian cyst that will need to be followed up with your primary care doctor with an ultrasound or MRI. Your labs and imaging were otherwise totally normal. Please take medications as previously prescribed. Please follow-up with your PCP, GI team and pain management team. Clinical Impressions Clinical Impression: Chronic prescription opiate use, Chronic pancreatitis, Nausea & vomiting, Lesion of left ovary Instructions Patient Instructions: DI for Acute Abdominal Pain Discharge ED Provider: Benny Nolasco General Adult HPI General Chief complaint: Abdominal Pain Stated complaint: severe abdominal pain, diarhhea Time Seen by Provider: 02/01/23 16:34 History of Present Illness HPI narrative: 37-year-old female, history of chronic pancreatitis and frequent ED visit presents with worsening abdominal pain and nausea and vomiting diarrhea and p.o. intolerance. She was seen yesterday for similar symptoms. At that time workup was negative, she received multiple doses of Dilaudid and antiemetics and was discharged. Last CT was at least a couple of months ago per patient. 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 She had a cholecystectomy and later had a biliary stone. She had an ERCP to remove the stone and ever since has had chronic pancreatitis. She has been unsuccessful in establishing care with a pain management team and with a GI team recently for variety of reasons. Related Data Previous Rx's Medication Instructions Recorded prochlorperazine maleate 10 mg 10 mg PO Q6H PRN nausea and 12/05/22 tablet (Compazine) vomiting 24 hours #20 tabs cholecalciferol (vitamin D3) 125 125 mcg PO DAILY 60 days #60 caps 12/10/22 mcg (5,000 unit) capsule duloxetine 60 mg capsule,delayed 60 mg PO DAILY 30 days #30 caps 12/10/22 release olanzapine 7.5 mg tablet 7.5 mg PO HS 30 days #30 tabs 12/10/22 oxycodone 10 mg tablet 10 mg PO QID PRN chronic 01/05/23 pancreatitis pain 30 days #120 tabs pregabalin 300 mg capsule (Lyrica) 300 mg PO BID pain 30 days #60 caps 01/06/23 lorazepam 2 mg tablet 2 mg PO BID PRN anxiety and panic 01/13/23 attacks 30 days #60 tabs promethazine 25 mg rectal 25 mg [place] Q6H PRN nausea and 01/31/23 suppository vomiting #12 ea Allergies Allergy/AdvReac Type Severity Reaction Status Date / Time droperidol AdvReac Intermediate jaw go Verified 02/01/23 17:06 [facility] Disclaimer: The information contained in this section may have been updated after the patient was seen, as this information can be updated by other users. Medical History Abdominal pain Ac
--- NOTE | 2023-02-01 17:12 | CT_ITS ---
PROCEDURE INFORMATION: Exam: CT Abdomen And Pelvis With Contrast Exam date and time: 02/01/2023 6:23 PM Age: 37 years old Clinical indication: Abdominal pain; Additional info: Acute on chronic pancreatits TECHNIQUE: Imaging protocol: Computed tomography of the abdomen and pelvis with contrast. Radiation optimization: All CT scans at this facility use at least one of these dose optimization techniques: automated exposure control; mA and/or kV adjustment per patient size (includes targeted exams where dose is matched to clinical indication); or iterative reconstruction. Contrast material: ISOVUE; Contrast volume: 75 ml; Contrast route: IV; REPORTING DATA: Count of CT and Cardiac NM exams in prior 12 months: This patient has received [address] and 0 known cardiac nuclear medicine studies in the 12 months prior to the current study. COMPARISON: CT ABDOMEN PELVIS W CON 12/25/2021 10:00 PM FINDINGS: Lungs: Stable 5 mm nodule in the anterior right middle lobe dating back to 08/06/2020. No follow-up of this nodule advised. Lung bases otherwise clear. Liver: Normal. No mass. Gallbladder and bile ducts: Status post cholecystectomy. No evident bile duct dilatation allowing for prior cholecystectomy. Pancreas: Normal. No ductal dilation. Spleen: Normal. No splenomegaly. Adrenal glands: Normal. No mass. Kidneys and ureters: Normal. No hydronephrosis. Stomach and bowel: Stomach is somewhat distended with fluid but otherwise unremarkable. GI tract structures otherwise unremarkable with no evident wall thickening allowing for incomplete distention. Appendix: Appendix is normal. No evidence of appendicitis. Intraperitoneal space: Unremarkable. No free air. No significant fluid collection. Vasculature: Unremarkable. No abdominal aortic aneurysm. Lymph nodes: Unremarkable. No enlarged lymph nodes. Urinary bladder: Unremarkable as visualized. Reproductive: Interval development of a 5.8 x 4.4 x 4.4 cm cystic lesion in the left ovary with a density of 23. A 2.0 cm cystic lesion right ovary also noted. Bones/joints: Unremarkable. No acute fracture. Soft tissues: Stable 21 x 10 mm ovoid nodule in the medial right breast dating back to 08/06/2020 compatible with benign lesion. IMPRESSION: 1. Stomach somewhat distended with fluid which may be related to recent ingestion or hypoperistalsis or gastroparesis. Developing gastric outlet obstruction not entirely excluded in the proper clinical setting. 2. Interval development of a 5.8 cm complex cystic lesion in the left ovary. Further evaluation with prompt non-emergent ultrasound or prompt non-emergent MRI is recommended to characterize. (Reference: Morris). A 2 cm right ovarian cyst also noted. 3. Additional nonemergent findings as above. REFERENCES: Morris et al. Management of Incidental Adnexal Findings on CT and MRI: A White Paper of the ACR Incidental Findings Committee, J Am Lan Radiol. 2019;17(2):248-254.
[2023-02-01 17:19] LABS: Basophils % 0.6 % (0.1-2.0); Eosinophils # 0.1 K/mm3 (0.0-0.4); Eosinophils % 1.8 % (0.1-12.0); Hematocrit 37.8 % (37.0-47.0); Hemoglobin 12.7 g/dL (12.2-16.2); Lymphocytes # 2.1 K/mm3 (0.7-4.5); Lymphocytes % 33.1 % (10-50); Mean Corpuscular HGB Conc 33.5 g/dL (31.8-35.4); Mean Corpuscular Hemoglobin 27.4 pg (27.0-31.2); Mean Corpuscular Volume 81.8 fl (81-99); Mean Platelet Volume 8.3 fl (7.4-10.4); Monocytes # 0.2 K/mm3 (0.1-1.0); Monocytes % 3.8 % (1.7-9.3); Neutrophils # 3.9 K/mm3 (1.8-7.8); Neutrophils % 60.7 % (37.0-80.0); Platelet Count 187 K/mm3 (142-424); Red Blood Count 4.62 M/mm3 (4.20-5.40); White Blood Count 6.4 K/mm3 (4.8-10.8)
[2023-02-01 17:21] LABS: Chloride 108 mmol/L (98-107)
[2023-02-01 17:22] LABS: Potassium 3.5 mmoL/L (3.5-5.1); Sodium 142 mmol/L (136-145)
[2023-02-01 17:24] LABS: Blood Urea Nitrogen 15 mg/dl (7-17); Creatinine Clearance Estimated 191 mL/min (50-200); Estimated Glomerular Filt Rate 95 ml/min (>60); GFR (African American) 115 ML/MIN (>60)
[2023-02-01 17:25] LABS: Alanine Aminotransferase 23 U/L (12-78); Albumin/Globulin Ratio 1.5 (1.1-1.8); Alkaline Phosphatase 103 U/L (38-126); Anion Gap 9.5 mEq/L (5-15); Aspartate Amino Transferase 25 U/L (14-36); Bilirubin,Total 0.3 mg/dl (0.2-1.3); Calcium 8.5 mg/dl (8.4-10.2); Carbon Dioxide 28 mmol/L (22.0-30.0); Globulin 2.6 g/dL (1.3-3.2); Glucose 96 mg/dl (74-100); Lactic Acid 1.6 mmol/L (0.7-2.1); Total Protein,Serum 6.6 g/dl (6.3-8.2)
[2023-02-01 17:26] LABS: Ethyl Alcohol < 10 mg/dl (0-10)
[2023-02-01 17:30] LABS: Lipase 219 U/L (23-300)
[2023-02-01 17:31] LABS: Magnesium 1.8 mg/dl (1.6-2.3)
[2023-02-01 17:47] LABS: HCG Qualitative, Serum Negative (Negative)
[2023-02-01 18:36] VITALS: BP 129/74; PULSE 83; RESP 20; O2SAT 98
[2023-02-01 19:00] VITALS: BP 174/123; PULSE 94; O2SAT 97
--- NOTE | 2023-02-01 19:14 | PC.NURSE ---
BP cuff changed lights turned off
[2023-02-01 19:21] VITALS: BP 131/95; PULSE 75; O2SAT 97
[2023-02-01 20:23] VITALS: BP 127/87; PULSE 72; RESP 18; TEMP 36.8; O2SAT 97
== END 2023-02-01 20:24 | disposition home or self-care (01) ==
PROVIDERS: Emergency Provider Emergency Medicine; PCP Internal Medicine
DX: K86.1 Other chronic pancreatitis (principal); R11.2 Nausea with vomiting, unspecified; N83.202 Unspecified ovarian cyst, left side; F17.210 Nicotine dependence, cigarettes, uncomplicated
CPT/HCPCS: 74177; 80053; 83605; 83690; 83735; 84703; 85025; 96361; 96374; 96375; 99285; J2405; Q9967

== ENCOUNTER 2023-02-03 11:47 | Emergency (ER) | payer BC, SELFPAY ==
[2023-02-03 11:48] VITALS: BP 157/116; PULSE 117; RESP 18; TEMP 37.1; O2SAT 98; BMI 39.9
--- NOTE | 2023-02-03 11:58 | HMH.EDGENADL ---
Discharge Plan Disposition Patient Disposition: Home, Self-Care Condition: Good Chief Complaint: Abdominal Pain Prescriptions Prescriptions: No Action olanzapine 7.5 mg tablet 7.5 mg PO HS 30 Days Qty: 30 2RF duloxetine 60 mg capsule,delayed release(DR/EC) 60 mg PO DAILY 30 Days Qty: 30 2RF cholecalciferol (vitamin D3) 125 mcg (5,000 unit) capsule 125 mcg PO DAILY 60 Days Qty: 60 3RF oxycodone 10 mg tablet 10 mg PO QID PRN (Reason: chronic pancreatitis pain) 30 Days Qty: 120 0RF pregabalin [Lyrica] 300 mg capsule 300 mg PO BID 30 Days Qty: 60 1RF lorazepam 2 mg tablet 2 mg PO BID PRN (Reason: anxiety and panic attacks) 30 Days Qty: 60 0RF prochlorperazine maleate [Compazine] 10 mg tablet 10 mg PO Q6H PRN (Reason: nausea and vomiting) 1 Days Qty: 20 0RF promethazine 25 mg suppository 25 mg [place] Q6H PRN (Reason: nausea and vomiting) Qty: 12 0RF Referrals Follow up/Referrals: Rafiq Song DO [Primary Care Provider] - See instructions Clinical Impressions Clinical Impression: Abdominal pain Instructions Patient Instructions: DI for Acute Abdominal Pain, DI for Chronic Pain -- Adult Discharge ED Provider: Fazal Caceres General Adult HPI General Chief complaint: Abdominal Pain Stated complaint: abd pain, vomiting Time Seen by Provider: 02/03/23 11:50 History of Present Illness HPI narrative: 37-year-old female with a history of chronic pancreatitis secondary to alcohol use, chronic prescription opiate user, history of benzodiazepine abuse and other substances, anxiety, depression, malingering, frequent ED visits for pain seeking who presents to the ED with complaints of epigastric abdominal pain. Patient notes that she was seen on the ED on Thursday due to epigastric abdominal pain but was discharged after symptom control. On Thursday, patient we presented with abdominal pain and CT scan was negative that time for any acute complications. Over the past 24 hours, the patient notes that she is persistently having nausea, vomiting, diarrhea and this morning started developing a sharp stabbing pain in the epigastric region radiating to the back. Patient notes that she has not been able to tolerate any p.o. intake. Related Data Previous Rx's Medication Instructions Recorded prochlorperazine maleate 10 mg 10 mg PO Q6H PRN nausea and 12/05/22 tablet (Compazine) vomiting 24 hours #20 tabs cholecalciferol (vitamin D3) 125 125 mcg PO DAILY 60 days #60 caps 12/10/22 mcg (5,000 unit) capsule duloxetine 60 mg capsule,delayed 60 mg PO DAILY 30 days #30 caps 12/10/22 release olanzapine 7.5 mg tablet 7.5 mg PO HS 30 days #30 tabs 12/10/22 oxycodone 10 mg tablet 10 mg PO QID PRN chronic 01/05/23 pancreatitis pain 30 days #120 tabs pregabalin 300 mg capsule (Lyrica) 300 mg PO BID pain 30 days #60 caps 01/06/23 lorazepam 2 mg tablet 2 mg PO BID PRN anxiety and panic 01/13/23 attacks 30 days #60 tabs promethazine 25 mg rectal 25 mg [place] Q6H PRN nausea and 01/31/23 suppository vomiting #12 ea Allergies Allergy/AdvReac Type Severity Reaction Status Date / Time droperidol AdvReac Intermediate jaw go Verified 02/01/23 17:06 sideways PFSH PFS Disclaimer: The information contained in this section may have been updated after the patient was seen, as this information can be updated by other users. Medical History Abdominal pain Acute lower GI bleeding Acute pancreatitis Alcohol consumption binge drinking Anxiety Depressed Epigastric pain Gallbladder disease Gastroenteritis History of fracture of hand compartment sydrome History of gastroesophageal reflux (GERD) Impetigo Left upper quadrant pain Nausea vomiting and diarrhea Osteoarthritis Overactive bladder Patient left without being seen Rupture of cyst of right ovary Sinusitis Thrush Surgical History (Reviewed 01/05/23 @ 10:40 by Lissette Rutherford
[2023-02-03 13:16] LABS: Basophils % 0.4 % (0.1-2.0); Eosinophils # 0.1 K/mm3 (0.0-0.4); Eosinophils % 2.5 % (0.1-12.0); Hemoglobin 11.5 g/dL (12.2-16.2); Lymphocytes # 1.4 K/mm3 (0.7-4.5); Lymphocytes % 24.3 % (10-50); Mean Corpuscular HGB Conc 33.8 g/dL (31.8-35.4); Mean Corpuscular Hemoglobin 27.2 pg (27.0-31.2); Mean Corpuscular Volume 80.4 fl (81-99); Mean Platelet Volume 8.4 fl (7.4-10.4); Monocytes # 0.2 K/mm3 (0.1-1.0); Monocytes % 4.1 % (1.7-9.3); Neutrophils % 68.7 % (37.0-80.0); Platelet Count 190 K/mm3 (142-424); Red Blood Count 4.23 M/mm3 (4.20-5.40); Red Cell Distribution Width 16.9 % (11.5-17.5); White Blood Count 5.8 K/mm3 (4.8-10.8)
[2023-02-03 13:26] LABS: Lactic Acid 1.3 mmol/L (0.7-2.1)
[2023-02-03 13:48] LABS: HCG Qualitative, Serum Negative (Negative)
[2023-02-03 14:11] LABS: Chloride 110 mmol/L (98-107); Sodium 141 mmol/L (136-145)
[2023-02-03 14:12] LABS: Potassium 3.6 mmoL/L (3.5-5.1)
[2023-02-03 14:14] LABS: Alanine Aminotransferase 24 U/L (12-78); Alkaline Phosphatase 74 U/L (38-126); Anion Gap 6.6 mEq/L (5-15); Aspartate Amino Transferase 25 U/L (14-36); Bilirubin,Total 0.3 mg/dl (0.2-1.3); Blood Urea Nitrogen 9 mg/dl (7-17); Carbon Dioxide 28 mmol/L (22.0-30.0); Creatinine Clearance Estimated 223 mL/min (50-200); Estimated Glomerular Filt Rate 113 ml/min (>60); GFR (African American) 137 ML/MIN (>60); Lipase 72 U/L (23-300)
[2023-02-03 14:15] LABS: Albumin Level 3.6 g/dl (3.5-5.0); Albumin/Globulin Ratio 1.6 (1.1-1.8); Calcium 8.4 mg/dl (8.4-10.2); Globulin 2.2 g/dL (1.3-3.2); Glucose 99 mg/dl (74-100); Total Protein,Serum 5.8 g/dl (6.3-8.2)
[2023-02-03 14:40] VITALS: BP 142/95; PULSE 78; RESP 18; TEMP 36.7; O2SAT 97
== END 2023-02-03 14:40 | disposition home or self-care (01) ==
PROVIDERS: Emergency Provider Emergency Medicine; PCP Internal Medicine
DX: R10.13 Epigastric pain (principal); R11.2 Nausea with vomiting, unspecified; R19.7 Diarrhea, unspecified; F17.210 Nicotine dependence, cigarettes, uncomplicated
CPT/HCPCS: 36415; 80053; 83605; 83690; 84703; 85025; 96361; 96372; 96374; 96375; 99285

== ENCOUNTER → 2023-02-05 13:07 | Outpatient (CLI) | payer BC, SELFPAY ==
[2023-02-05 14:10] LABS: Benzodiazepines Screen,Urine Negative ng/ml (<200)
[2023-02-05 14:11] LABS: Amphetamine/Metha Screen,Urine Negative ng/ml (<1000); Barbiturates Screen,Urine Negative ng/ml (<200)
[2023-02-05 14:12] LABS: Methadone Screen,Urine Negative ng/ml (<300)
[2023-02-05 14:13] LABS: Cannabinoid Screen,Urine Positive ng/ml (<50); Cocaine Screen,Urine Negative ng/ml (<300)
[2023-02-05 14:14] LABS: Opiate Screen,Urine Positive ng/ml (<300)
[2023-02-05 14:15] LABS: Phencyclidine Screen,Urine Negative ng/ml (<25)
== END ==
PROVIDERS: PCP Internal Medicine; Visit Provider Internal Medicine
DX: Z79.899 Other long term (current) drug therapy (principal)
CPT/HCPCS: 80305

== ENCOUNTER 2023-02-07 05:26 | Emergency (ER) | payer BC, SELFPAY ==
[2023-02-07 05:27] VITALS: BP 157/95; PULSE 114; RESP 20; TEMP 37; O2SAT 96; BMI 38.2
--- NOTE | 2023-02-07 05:43 | CT_ITS ---
PROCEDURE INFORMATION: Exam: CT Head Without Contrast Exam date and time: 02/07/2023 6:31 AM Age: 37 years old Clinical indication: Other: New severe headache TECHNIQUE: Imaging protocol: Computed tomography of the head without contrast. Radiation optimization: All CT scans at this facility use at least one of these dose optimization techniques: automated exposure control; mA and/or kV adjustment per patient size (includes targeted exams where dose is matched to clinical indication); or iterative reconstruction. REPORTING DATA: Count of CT and Cardiac NM exams in prior 12 months: This patient has received [address] known [address] and 0 known cardiac nuclear medicine studies in the 12 months prior to the current study. COMPARISON: No relevant prior studies available. FINDINGS: Brain: Normal. No hemorrhage. Unremarkable white matter. No mass effect. Cerebral ventricles: No ventriculomegaly. Paranasal sinuses: Visualized sinuses are unremarkable. No fluid levels. Mastoid air cells: Visualized mastoid air cells are well aerated. Nasal cavity: There is a nasal septal defect. Bones/joints: Unremarkable. No acute fracture. Soft tissues: Unremarkable. IMPRESSION: No acute intracranial process. Nasal septal defect.
[2023-02-07 06:01] VITALS: BP 166/86; PULSE 110; O2SAT 100
--- NOTE | 2023-02-07 06:05 | PC.NURSE ---
Adjusted patient's pulse oximeter for appropriate measurements. Patient reports she is having an anxiety attack and that she takes lorazepam at home and would like a dose here. Notified provider, no new orders at this time. Provider to bedside to speak with patient.
--- NOTE | 2023-02-07 06:21 | PC.NURSE ---
called to patient's room per patient's request. patient tells me she feels uncomfortable and i just want to leave . When questioned if there was anything additional I could offer her, she stated i was having a panic attack and asked re: lorazepam and the doctor came in and informed me that he didn't have any benzo's or opiates to offer me ; I never asked for them, I have oxycodone and lorazepam at home, I just didn't plan on having a panic attack while I was here. He made me uncomfortable and I want to be discharged . Explained to patient after speaking with MD, that while she is free to leave the hospital at any time she chooses, it would be considered against medical advice, as due to the nature of her triage complaint-she needs a ct of the head per this md's request. She agreed to stay to find out what's going on . VSS. Resp are regular and unremarkable for rate at this time.
--- NOTE | 2023-02-07 06:33 | HMH.EDGENADL ---
Discharge Plan Disposition Patient Disposition: Home, Self-Care Prescriptions Prescriptions: No Action olanzapine 7.5 mg tablet 7.5 mg PO HS 30 Days Qty: 30 2RF duloxetine 60 mg capsule,delayed release(DR/EC) 60 mg PO DAILY 30 Days Qty: 30 2RF cholecalciferol (vitamin D3) 125 mcg (5,000 unit) capsule 125 mcg PO DAILY 60 Days Qty: 60 3RF Creon 6,000-19,000 -30,000 unit capsule,delayed release(DR/EC) PO lorazepam 2 mg tablet 2 mg PO BID PRN (Reason: anxiety and panic attacks) 30 Days Qty: 60 0RF oxycodone 10 mg tablet 10 mg PO QID PRN (Reason: chronic pancreatitis pain) 30 Days Qty: 120 0RF pregabalin [Lyrica] 300 mg capsule 300 mg PO BID 30 Days Qty: 60 1RF prochlorperazine maleate [Compazine] 10 mg tablet 10 mg PO Q6H PRN (Reason: nausea and vomiting) 1 Days Qty: 20 0RF promethazine 25 mg suppository 25 mg [place] Q6H PRN (Reason: nausea and vomiting) Qty: 12 0RF Referrals Follow up/Referrals: Rafiq Song DO [Primary Care Provider] - See instructions Activity Restrictions/Add. Instructions Additional Instructions/Restrictions: Please follow-up with your primary care provider. Please return to the emergency department if you develop any new or worsening symptoms or become concerned for your health. Clinical Impressions Clinical Impression: Headache Discharge ED Provider: Benny Nolasco Adult HPI General Chief complaint: Headache Stated complaint: headache, dizzy, nausea Time Seen by Provider: 02/07/23 05:41 Mode of Arrival: Ambulatory Source of Information: Patient Limitations: No Limitations Description of Symptoms (Recalled from ER Triage Doc. by RN): Patient reports headache for the last 4 days. Described as pounding at temples. Patient reports blurry vision. Patient also reports nausea and vomiting for the last 2 days with 6 episodes of emesis in the last 24 hours, most recently just before arrival. Patient also reports syncopal events at home that happen randomly. Patient was ambulatory upon entering ER at time of triage. History of Present Illness HPI narrative: 37-year-old female, well-known to this ED presents with multiple complaints. She reports severe headache for the last few days, currently 10 out of 10. Bifrontal in nature. She also reports chronic abdominal pain nausea and vomiting. She reports passing out at home multiple times. She reports she does not usually get headaches has no diagnosis of migraines. She also reports previous nasal drainage. Related Data Home Medications Medication Instructions Recorded Confirmed [id number] cap PO 02/05/23 02/05/23 6,000-19,000-30,000 unit capsule,delayed rel (Creon) Previous Rx's Medication Instructions Recorded prochlorperazine maleate 10 mg 10 mg PO Q6H PRN nausea and 12/05/22 tablet (Compazine) vomiting 24 hours #20 tabs cholecalciferol (vitamin D3) 125 125 mcg PO DAILY 60 days #60 caps 12/10/22 mcg (5,000 unit) capsule duloxetine 60 mg capsule,delayed 60 mg PO DAILY 30 days #30 caps 12/10/22 release olanzapine 7.5 mg tablet 7.5 mg PO HS 30 days #30 tabs 12/10/22 promethazine 25 mg rectal 25 mg [place] Q6H PRN nausea and 01/31/23 suppository vomiting #12 ea lorazepam 2 mg tablet 2 mg PO BID PRN anxiety and panic 02/05/23 attacks 30 days #60 tabs oxycodone 10 mg tablet 10 mg PO QID PRN chronic 02/05/23 pancreatitis pain 30 days #120 tabs pregabalin 300 mg capsule (Lyrica) 300 mg PO BID pain 30 days #60 caps 02/05/23 Allergies Allergy/AdvReac Type Severity Reaction Status Date / Time droperidol AdvReac Intermediate jaw go Verified 02/05/23 09:27 sideways PFSH [facility] Disclaimer: The information contained in this section may have been updated after the patient was seen, as this information can be updated by other users. Medical History Abdominal pain Acute lower GI bleeding Acute pancreatit
--- NOTE | 2023-02-07 06:34 | PC.NURSE ---
pt. to CT
--- NOTE | 2023-02-07 06:36 | PC.NURSE ---
pt back from ct
[2023-02-07 06:38] VITALS: BP 157/97; PULSE 105; O2SAT 88
--- NOTE | 2023-02-07 06:42 | ECG_ITS ---
APPROVED REPORT Exam: Resting ECG HR:100 bpm ECG Measurements Heart Rate 100 AXES NH 126 P 37 QRSd 97 QRS 67 QT 352 T 51 QTc 409 Conclusion SINUS TACHYCARDIA ABNORMAL RHYTHM ECG UNCONFIRMED REPORT Electronically signed by : Darren Mcdaniel MD 02/08/2023 07:34:22
--- NOTE | 2023-02-07 06:43 | PC.NURSE ---
EKG completed per Anty.
[2023-02-07 07:05] VITALS: BP 138/86; PULSE 96; RESP 20; TEMP 36.8; O2SAT 96
[2023-02-07 07:08] VITALS: BP 138/86; PULSE 105; O2SAT 96
== END 2023-02-07 07:18 | disposition home or self-care (01) ==
PROVIDERS: Emergency Provider Emergency Medicine; PCP Internal Medicine
DX: R51.9 Headache, unspecified (principal); R55 Syncope and collapse; R11.2 Nausea with vomiting, unspecified; R10.9 Unspecified abdominal pain; F17.210 Nicotine dependence, cigarettes, uncomplicated
CPT/HCPCS: 70450; 93005; 96372; 99284

== ENCOUNTER 2023-02-17 20:48 | Emergency (ER) | payer BC, SELFPAY ==
[2023-02-17 20:49] VITALS: BP 155/90; PULSE 127; RESP 18; TEMP 36.7; O2SAT 98; BMI 38.2
[2023-02-17 21:41] VITALS: BP 141/105; PULSE 119; RESP 20; O2SAT 97
--- NOTE | 2023-02-17 21:41 | PC.NURSE ---
Pt states she is having abdominal pain, for which she took her last oxycodone 2 hours ago Per MD Sanchez , no IV at this time.
[2023-02-17 22:58] VITALS: BP 140/96; PULSE 113; RESP 16; TEMP 36.7; O2SAT 99
--- NOTE | 2023-02-18 00:12 | HMH.EDGENADL ---
Discharge Plan Disposition Patient Disposition: Home, Self-Care Condition: Good Prescriptions Prescriptions: New promethazine 25 mg tablet 25 mg PO Q6H PRN (Reason: nausea and vomiting) Qty: 20 0RF No Action olanzapine 7.5 mg tablet 7.5 mg PO HS 30 Days Qty: 30 2RF duloxetine 60 mg capsule,delayed release(DR/EC) 60 mg PO DAILY 30 Days Qty: 30 2RF cholecalciferol (vitamin D3) 125 mcg (5,000 unit) capsule 125 mcg PO DAILY 60 Days Qty: 60 3RF Creon 6,000-19,000 -30,000 unit capsule,delayed release(DR/EC) PO lorazepam 2 mg tablet 2 mg PO BID PRN (Reason: anxiety and panic attacks) 30 Days Qty: 60 0RF oxycodone 10 mg tablet 10 mg PO QID PRN (Reason: chronic pancreatitis pain) 30 Days Qty: 120 0RF pregabalin [Lyrica] 300 mg capsule 300 mg PO BID 30 Days Qty: 60 1RF prochlorperazine maleate [Compazine] 10 mg tablet 10 mg PO Q6H PRN (Reason: nausea and vomiting) 1 Days Qty: 20 0RF promethazine 25 mg suppository 25 mg [place] Q6H PRN (Reason: nausea and vomiting) Qty: 12 0RF Referrals Follow up/Referrals: Rafiq Song DO [Primary Care Provider] - See instructions Activity Restrictions/Add. Instructions Additional Instructions/Restrictions: You were evaluated in the emergency department today. Please follow-up with your primary care provider and your pain management physician for further evaluation and management of your chronic pain. Clinical Impressions Clinical Impression: Chronic prescription opiate use, Chronic abdominal pain Instructions Patient Instructions: DI for Acute Abdominal Pain, DI for Chronic Pain -- Adult Discharge ED Provider: Svetlana Sanchez General Adult HPI General Chief complaint: Abdominal Pain Stated complaint: vomitting, stomach pain Time Seen by Provider: 02/17/23 21:40 Mode of Arrival: Ambulatory Source of Information: Patient Limitations: No Limitations Description of Symptoms (Recalled from ER Triage Doc. by RN): patient with chronic pancreatitis and reports increased and flare on Osmel Ann. Patient unable to tolerate anything PO. Meds [employer] Oxy 10mg at 1930 but patient reports vomiting medication up immidately after ingestion. Pain radiating from epigastric to center of upper back. Describes as stabbing pain History of Present Illness HPI narrative: This patient is a 37-year-old female very well-known to the emergency department with history of chronic pancreatitis and abdominal pain and chronic opioid use presenting to the emergency department for evaluation with concern for an acute flare of her chronic abdominal pain. She states that it started on Osmel Ann after she tried eating pizza. She states that she has not been able to eat or drink very much at all and has had severe pain and is spent most of the last few days locked up in her room given her pain. It feels the same as prior pancreatitis flares. She takes oxycodone and pregabalin at home without good improvement in her symptoms. Today, she states that she has not been able to keep them down. She states that she ran out of nausea medication at home. Related Data Home Medications Medication Instructions Recorded Confirmed [id number] cap PO 02/05/23 02/05/23 6,000-19,000-30,000 unit capsule,delayed rel (Creon) Previous Rx's Medication Instructions Recorded prochlorperazine maleate 10 mg 10 mg PO Q6H PRN nausea and 12/05/22 tablet (Compazine) vomiting 24 hours #20 tabs cholecalciferol (vitamin D3) 125 125 mcg PO DAILY 60 days #60 caps 12/10/22 mcg (5,000 unit) capsule duloxetine 60 mg capsule,delayed 60 mg PO DAILY 30 days #30 caps 12/10/22 release olanzapine 7.5 mg tablet 7.5 mg PO HS 30 days #30 tabs 12/10/22 promethazine 25 mg rectal 25 mg [place] Q6H PRN nausea and 01/31/23 suppository vomiting #12 ea lorazepam 2 mg tablet 2 mg PO BID PRN anxiety and panic 02/05/23 attacks 30 days #60 tabs oxycodone 10 mg tablet 10 mg PO QID PRN chroni
== END 2023-02-17 23:01 | disposition home or self-care (01) ==
PROVIDERS: Emergency Provider Emergency Medicine; PCP Internal Medicine
DX: R10.9 Unspecified abdominal pain (principal); K86.1 Other chronic pancreatitis; F17.210 Nicotine dependence, cigarettes, uncomplicated
CPT/HCPCS: 96372; 99283

== ENCOUNTER 2023-02-19 22:03 | Emergency (ER) | payer BC, SELFPAY ==
[2023-02-19] VITALS (11 sets, daily range): BP systolic 133–170; BP diastolic 88–108; PULSE 100–122; RESP 16; TEMP 36.8; O2SAT 96–99; BMI 38.2
--- NOTE | 2023-02-19 22:36 | HMH.EDGENADL ---
Discharge Plan Disposition Patient Disposition: Home, Self-Care Condition: Good Prescriptions Prescriptions: No Action olanzapine 7.5 mg tablet 7.5 mg PO HS 30 Days Qty: 30 2RF duloxetine 60 mg capsule,delayed release(DR/EC) 60 mg PO DAILY 30 Days Qty: 30 2RF cholecalciferol (vitamin D3) 125 mcg (5,000 unit) capsule 125 mcg PO DAILY 60 Days Qty: 60 3RF Creon 6,000-19,000 -30,000 unit capsule,delayed release(DR/EC) 1 cap PO DAILY lorazepam 2 mg tablet 2 mg PO BID PRN (Reason: anxiety and panic attacks) 30 Days Qty: 60 0RF oxycodone 10 mg tablet 10 mg PO QID PRN (Reason: chronic pancreatitis pain) 30 Days Qty: 120 0RF pregabalin [Lyrica] 300 mg capsule 300 mg PO BID 30 Days Qty: 60 1RF promethazine 25 mg suppository 25 mg GA Q6H PRN (Reason: nausea and vomiting) Qty: 12 0RF promethazine 25 mg tablet 25 mg PO Q6H PRN (Reason: nausea and vomiting) Qty: 20 0RF Referrals Follow up/Referrals: Trevin Castellon MD [Staff Physician] - See instructions Rafiq Song DO [Primary Care Provider] - See instructions Activity Restrictions/Add. Instructions Additional Instructions/Restrictions: You were evaluated in the emergency department today. Follow-up with your primary care provider as soon as possible. I recommend calling and seeing if you can move up your appointment. Clinical Impressions Clinical Impression: Chronic pancreatitis Instructions Patient Instructions: DI for Chronic Pain -- Adult, DI for Prescription Opioid Use Discharge ED Provider: Svetlana Sanchez General Adult HPI <J Thor Squires MD - Last Filed: 02/19/23 22:38> General Chief complaint: Abdominal Pain Stated complaint: abd pain Time Seen by Provider: 02/19/23 22:30 Mode of Arrival: EMS Source of Information: Patient Limitations: No Limitations Description of Symptoms (Recalled from ER Triage Doc. by RN): pt c/o n/v/d abd pain. pt states was seen at ER and diagnosed with pancreatitis and was supposed to be admitted but decline due to childcare issues. History of Present Illness HPI narrative: Patient is a 37-year-old female very well-known to our emergency department with a history of chronic pancreatitis here multiple times for panic and anxiety attacks presents today with recurrent and chronic epigastric abdominal pain radiating to her back that she states is consistent with her pancreatitis. Of note the patient states that she was at [facility] emergency department yesterday and states that they wanted to keep her in the hospital however on review of their notes there is no mention of that and she was treated with oral oxycodone and morphine and upon getting Dilaudid she felt like she was able to go home. Patient claims tonight that she has been unable to keep her chronic pain medications down and she states that Dr. Loja is her primary care doctor who has been prescribing these medicines for her. She has been referred to Dr. Castellon but has been unable to go to that appointment. Related Data Home Medications Medication Instructions Recorded Confirmed [id number] 1 cap PO DAILY 02/05/23 02/19/23 6,000-19,000-30,000 unit capsule,delayed rel (Creon) Previous Rx's Medication Instructions Recorded cholecalciferol (vitamin D3) 125 125 mcg PO DAILY 60 days #60 caps 12/10/22 mcg (5,000 unit) capsule duloxetine 60 mg capsule,delayed 60 mg PO DAILY 30 days #30 caps 12/10/22 release olanzapine 7.5 mg tablet 7.5 mg PO HS 30 days #30 tabs 12/10/22 promethazine 25 mg rectal 25 mg GA Q6H PRN nausea and 01/31/23 suppository vomiting #12 ea lorazepam 2 mg tablet 2 mg PO BID PRN anxiety and panic 02/05/23 attacks 30 days #60 tabs oxycodone 10 mg tablet 10 mg PO QID PRN chronic 02/05/23 pancreatitis pain 30 days #120 tabs pregabalin 300 mg capsule (Lyrica) 300 mg PO BID pain 30 days #60 caps 02/05/23 promethazine 25 mg tablet 25 mg PO Q6H PRN nausea and 02/17/23 vomiting #20 tabs Allergies Allergy/AdvReac Type Severity Reaction Status Date / Time droperidol AdvReac Intermediate jaw go Verified 02/05/23 09:27 sideways [facility] <J Thor Squires MD - Last Filed: 02/19/23 22:38> [facility] Disclaimer: The information contained in this section may have been updated after the patient was seen, as this information can be updated by other users. Medical History Abdominal pain Acute lower GI bleeding Acute pancreatitis Alcohol consumption binge drinking Anxiety Depressed Epigastric pain Gallbladder disease Gastroenteritis History of fracture of hand compartment sydrome History of gastroesophageal reflux (GERD) Impetigo Left upper quadrant pain Nausea vomiting and diarrhea Osteoarthritis Overactive bladder Patient left without being seen Rupture of cyst of right ovary Sinusitis Thrush Surgical History History of cholecystectomy History of colonoscopy Hx of dilation and curettage Hx of endoscopic retrograde cholangiopancreatography Hx of esophagogastroduodenoscopy Family History Other Family history of acute congestive heart failure Family history of hyperlipidemia Family history of hypertension Social History Smoking Status: Current every day smoker tobacco type: cigarettes packs per day: 1 years smoked: 20 second hand exposure: No alcohol intake: former substance use type: former substance user and marijuana current occupational status: unemployed Travel in the last 8 weeks: None household members: significant other, family and children housing: house marital status: single number of children: 3 education level: high school caffeine: No special jeanette needs: No agree to transfusion: No do you feel safe at home: Yes victim of physical abuse: No victim of emotional abuse: No victim of sexual abuse: No would you like helpful sources: No <Ash Squires MD - Last Filed: 02/19/23 22:38> ROS Obtained: Yes All systems reviewed & no additional complaints except as documented Physical Exam <Ash Squires MD - Last Filed: 02/19/23 22:38> General General appearance: anxious (Crying) Respiratory Respiratory exam: Present normal lung sounds bilaterally Cardiovascular Cardiovascular exam: Present regular rate; Absent tachycardia Abdominal Exam Abdominal exam: Present soft and tenderness (Epigastric tenderness) Neurological Exam Neurological exam: Present alert and oriented X3 Medical Decision Making <Ash Squires MD - Last Filed: 02/19/23 22:38> [facility] Inquiry Pt receiving controlled substance: No Vital Signs: 02/19/23 22:03 02/19/23 22:25 02/19/23 22:30 Temperature 98.2 F Temperature Source Oral Pulse Rate 120 H 120 H Pulse Rate [Right] 118 H Respiratory Rate 16 Blood Pressure 167/103 H 142/102 H Blood Pressure [Right Arm] 133/88 Blood Pressure Mean [Right Arm] 103 02 Sat by Pulse Oximetry 99 97 97 02/19/23 22:35 02/19/23 22:40 02/19/23 22:45 Temperature Temperature Source Pulse Rate 122 H 121 H 122 H Pulse Rate [Right] Respiratory Rate Blood Pressure 150/98 H 166/108 H 170/107 H Blood Pressure [Right Arm] Blood Pressure Mean [Right Arm] 02 Sat by Pulse Oximetry 96 96 97 02/19/23 22:50 02/19/23 22:55 02/19/23 23:05 Temperature Temperature Source Pulse Rate 100 H 116 H 113 H Pulse Rate [Right] Respiratory Rate Blood Pressure 165/103 H 169/95 H 151/99 H Blood Pressure [Right Arm] Blood Pressure Mean [Right Arm] 02 Sat by Pulse Oximetry 96 96 97 02/19/23 23:15 02/19/23 23:30 02/20/23 00:00 Temperature Temperature Source Pulse Rate 112 H 108 H 100 H Pulse Rate [Right] Respiratory Rate Blood Pressure 158/96 H 170/98 H 168/95 H Blood Pressure [Right Arm] Blood Pressure Mean [Right Arm] 02 Sat by Pulse Oximetry 96 96 96 02/20/23 00:09 Temperature 98.2 F Temperature Source Oral Pulse Rate 89 Pulse Rate [Right] Respiratory Rate 14 Blood Pressure 161/75 H Blood Pressure [Right Arm] Blood Pressure Mean [Right Arm] 02 Sat by Pulse Oximetry Lab Data Lab Results 02/19/23 22:03: WBC 8.6, RBC 5.07, Hgb 13.8, Hct 41.3, MCV 81.5, MCH 27.3, MCHC 33.5, RDW 17.3, Plt Count 362, MPV 8.0, Neut % (Auto) 62.0, Lymph % (Auto) 32.4, [place] % (Auto) 3.7, Eos % (Auto) 1.0, Baso % (Auto) 0.8, Neut # (Auto) 5.3, Lymph # (Auto) 2.8, [place] # (Auto) 0.3, Eos # (Auto) 0.1, Baso # (Auto) 0.1, Sodium 139, Potassium 3.2 L, Chloride 102, Carbon Dioxide 22, Anion Gap 18.2 H, BUN 14, Creatinine 0.60, Estimated Creat Clear 213, Estimated GFR 113, Est GFR ( Amer) 137, Glucose 113 H, Calcium 8.9, Total Bilirubin 0.5, AST 31, ALT 44, Alkaline Phosphatase 112, Total Protein 7.7 D, Albumin 4.5, Globulin 3.2, Albumin/Globulin Ratio 1.4, Lipase 232 02/19/23 22:03 02/19/23 22:03 Orders (Tests/Meds): ED MEDICATIONS Discontinued Medications Generic Name Dose Route Start Last Admin Trade Name Eugeneq PRN Reason Stop Dose Admin Acetaminophen 1,000 mg 02/19/23 22:34 02/19/23 22:54 Acetaminophen 1,000mg/100ml Vial IV 02/19/23 22:35 1,000 mg ONCE ONE Administration Lactated Ringer's 1,000 mls @ 999 mls/hr 02/19/23 22:45 02/19/23 22:54 Lactated Ringer's 1000 Ml Bag IV 02/19/23 23:45 999 mls/hr .Q1H1M INO Administration Ketorolac Tromethamine 30 mg 02/19/23 23:18 02/19/23 23:20 Ketorolac 30mg/Ml Vial IV 02/19/23 23:19 30 mg ONCE ONE Administration Metoclopramide HCl 10 mg 02/19/23 22:34 02/19/23 22:54 Metoclopramide Hcl 10mg/2ml Vial IVP 02/19/23 22:35 10 mg ONCE ONE Administration Promethazine HCl 25 mg 02/19/23 23:58 02/20/23 00:03 Promethazine 25mg Tablet PO 02/19/23 23:59 25 mg ONCE ONE Administration ORDERS Category Date Time Status CBC w/Auto Diff [Complete Blood Count Auto Diff] Stat Lab 02/19/23 22:03 Completed CMP [Comprehensive Metabolic Panel] Stat Lab 02/19/23 22:03 Completed Lipase Stat Lab 02/19/23 22:03 Completed Medical Decision Narrative: Patient is a very well-known patient to our emergency department 37-year-old with chronic pancreatitis been several years since her lipase has been elevated 3 times the upper limit of normal and she typically does not mount an enzymatic response from a pancreatic standpoint her symptoms are consistent with chronic pancreatitis. She has been hospitalized recently [facility] [place] and has had multiple ED visits including here in the [place]. She typically requires Dilaudid but will start off today with nonopioid pain medication including Tylenol and Reglan and IV fluids. Care was transitioned to Dr. Svetlana Sanchez for further evaluation and treatment. <Svetlana Sanchez, DO - Last Filed: 02/20/23 01:14> Vital Signs: 02/19/23 22:03 02/19/23 22:25 02/19/23 22:30 Temperature 98.2 F Temperature Source Oral Pulse Rate 120 H 120 H Pulse Rate [Right] 118 H Respiratory Rate 16 Blood Pressure 167/103 H 142/102 H Blood Pressure [Right Arm] 133/88 Blood Pressure Mean [Right Arm] 103 02 Sat by Pulse Oximetry 99 97 97 02/19/23 22:35 02/19/23 22:40 02/19/23 22:45 Temperature Temperature Source Pulse Rate 122 H 121 H 122 H Pulse Rate [Right] Respiratory Rate Blood Pressure 150/98 H 166/108 H 170/107 H Blood Pressure [Right Arm] Blood Pressure Mean [Right Arm] 02 Sat by Pulse Oximetry 96 96 97 02/19/23 22:50 02/19/23 22:55 02/19/23 23:05 Temperature Temperature Source Pulse Rate 100 H 116 H 113 H Pulse Rate [Right] Respiratory Rate Blood Pressure 165/103 H 169/95 H 151/99 H Blood Pressure [Right Arm] Blood Pressure Mean [Right Arm] 02 Sat by Pulse Oximetry 96 96 97 02/19/23 23:15 02/19/23 23:30 02/20/23 00:00 Temperature Temperature Source Pulse Rate 112 H 108 H 100 H Pulse Rate [Right] Respiratory Rate Blood Pressure 158/96 H 170/98 H 168/95 H Blood Pressure [Right Arm] Blood Pressure Mean [Right Arm] 02 Sat by Pulse Oximetry 96 96 96 02/20/23 00:09 Temperature 98.2 F Temperature Source Oral Pulse Rate 89 Pulse Rate [Right] Respiratory Rate 14 Blood Pressure 161/75 H Blood Pressure [Right Arm] Blood Pressure Mean [Right Arm] 02 Sat by Pulse Oximetry Lab Data Lab Results 02/19/23 22:03: WBC 8.6, RBC 5.07, Hgb 13.8, Hct 41.3, MCV 81.5, MCH 27.3, MCHC 33.5, RDW 17.3, Plt Count 362, MPV 8.0, Neut % (Auto) 62.0, Lymph % (Auto) 32.4, [place] % (Auto) 3.7, Eos % (Auto) 1.0, Baso % (Auto) 0.8, Neut # (Auto) 5.3, Lymph # (Auto) 2.8, [place] # (Auto) 0.3, Eos # (Auto) 0.1, Baso # (Auto) 0.1, Sodium 139, Potassium 3.2 L, Chloride 102, Carbon Dioxide 22, Anion Gap 18.2 H, BUN 14, Creatinine 0.60, Estimated Creat Clear 213, Estimated GFR 113, Est GFR ( Amer) 137, Glucose 113 H, Calcium 8.9, Total Bilirubin 0.5, AST 31, ALT 44, Alkaline Phosphatase 112, Total Protein 7.7 D, Albumin 4.5, Globulin 3.2, Albumin/Globulin Ratio 1.4, Lipase 232 Orders (Tests/Meds): ED MEDICATIONS Discontinued Medications Generic Name Dose Route Start Last Admin Trade Name Freq PRN Reason Stop Dose Admin Acetaminophen 1,000 mg 02/19/23 22:34 02/19/23 22:54 Acetaminophen 1,000mg/100ml Vial IV 02/19/23 22:35 1,000 mg ONCE ONE Administration Lactated Ringer's 1,000 mls @ 999 mls/hr 02/19/23 22:45 02/19/23 22:54 Lactated Ringer's 1000 Ml Bag IV 02/19/23 23:45 999 mls/hr .Q1H1M INO Administration Ketorolac Tromethamine 30 mg 02/19/23 23:18 02/19/23 23:20 Ketorolac 30mg/Ml Vial IV 02/19/23 23:19 30 mg ONCE ONE Administration Metoclopramide HCl 10 mg 02/19/23 22:34 02/19/23 22:54 Metoclopramide Hcl 10mg/2ml Vial IVP 02/19/23 22:35 10 mg ONCE ONE Administration Promethazine HCl 25 mg 02/19/23 23:58 02/20/23 00:03 Promethazine 25mg Tablet PO 02/19/23 23:59 25 mg ONCE ONE Administration ORDERS Category Date Time Status CBC w/Auto Diff [Complete Blood Count Auto Diff] Stat Lab 02/19/23 22:03 Completed CMP [Comprehensive Metabolic Panel] Stat Lab 02/19/23 22:03 Completed Lipase Stat Lab 02/19/23 22:03 Completed Medical Decision Narrative: Patient is a very well-known patient to our emergency department 37-year-old with chronic pancreatitis been several years since her lipase has been elevated 3 times the upper limit of normal and she typically does not mount an enzymatic response from a pancreatic standpoint her symptoms are consistent with chronic pancreatitis. She has been hospitalized recently [facility] [place] and has had multiple ED visits including here in the . She typically requires Dilaudid but will start off today with nonopioid pain medication including Tylenol and Reglan and IV fluids. Care was transitioned to Dr. Svetlana Sanchez for further evaluation and treatment. Daniel DO: On my assessment of the patient, she is sleeping comfortably. Vitals are normal on cardiac telemetry. Once I woke her up, she cried stating that she is in severe pain. Her labs are reassuring. She was given 30 mg of IV Toradol for pain control and 25 mg of Phenergan orally for nausea control. She has been seen multiple times in multiple emergency departments over the last several days and is already on controlled medications at home. I do not feel that giving her more controlled substances would be beneficial to her, and I feel that it would likely do more harm than good. I instructed her to continue taking her pain medications at home as prescribed. I instructed her to follow-up very closely with her primary care provider for further evaluation and management of her chronic pain. She was given strict return precautions and was discharged in stable condition. Critical Care <Ash Squires MD - Last Filed: 02/19/23 22:38> Critical Care Time Critical Care Time: No
[2023-02-19 22:43] LABS: Basophils # 0.1 K/mm3 (0-0.2); Basophils % 0.8 % (0.1-2.0); Eosinophils # 0.1 K/mm3 (0.0-0.4); Hematocrit 41.3 % (37.0-47.0); Hemoglobin 13.8 g/dL (12.2-16.2); Lymphocytes # 2.8 K/mm3 (0.7-4.5); Lymphocytes % 32.4 % (10-50); Mean Corpuscular HGB Conc 33.5 g/dL (31.8-35.4); Mean Corpuscular Hemoglobin 27.3 pg (27.0-31.2); Mean Corpuscular Volume 81.5 fl (81-99); Monocytes # 0.3 K/mm3 (0.1-1.0); Monocytes % 3.7 % (1.7-9.3); Neutrophils # 5.3 K/mm3 (1.8-7.8); Platelet Count 362 K/mm3 (142-424); Red Blood Count 5.07 M/mm3 (4.20-5.40); Red Cell Distribution Width 17.3 % (11.5-17.5); White Blood Count 8.6 K/mm3 (4.8-10.8)
[2023-02-19 22:44] LABS: Chloride 102 mmol/L (98-107); Sodium 139 mmol/L (136-145)
[2023-02-19 22:45] LABS: Potassium 3.2 mmoL/L (3.5-5.1)
[2023-02-19 22:47] LABS: Alanine Aminotransferase 44 U/L (12-78); Albumin Level 4.5 g/dl (3.5-5.0); Albumin/Globulin Ratio 1.4 (1.1-1.8); Alkaline Phosphatase 112 U/L (38-126); Anion Gap 18.2 mEq/L (5-15); Aspartate Amino Transferase 31 U/L (14-36); Bilirubin,Total 0.5 mg/dl (0.2-1.3); Blood Urea Nitrogen 14 mg/dl (7-17); Calcium 8.9 mg/dl (8.4-10.2); Carbon Dioxide 22 mmol/L (22.0-30.0); Creatinine Clearance Estimated 213 mL/min (50-200); Estimated Glomerular Filt Rate 113 ml/min (>60); GFR (African American) 137 ML/MIN (>60); Globulin 3.2 g/dL (1.3-3.2); Glucose 113 mg/dl (74-100); Lipase 232 U/L (23-300); Total Protein,Serum 7.7 g/dl (6.3-8.2)
[2023-02-19] MEDS: METOCLOPRAMIDE HCL 10MG/2ML VIAL 10 MG IVP (22:54)
[2023-02-19] MEDS: LACTATED RINGERS 1000ML 1,000 ML 999 ML IV (22:54)
[2023-02-19] MEDS: ACETAMINOPHEN 1,000MG/100ML VIAL 1000 MG IV (22:54)
[2023-02-19] MEDS: KETOROLAC 30MG/ML VIAL 30 MG IV (23:20)
[2023-02-20] VITALS: BP 168/95; PULSE 100; O2SAT 96
[2023-02-20] MEDS: PROMETHAZINE 25MG TABLET 25 MG PO (00:03)
[2023-02-20 00:09] VITALS: BP 161/75; PULSE 89; RESP 14; TEMP 36.8; O2SAT 97
== END 2023-02-20 00:10 | disposition home or self-care (01) ==
PROVIDERS: Student in an Organized Health Care Education/Training Program; Emergency Provider Emergency Medicine; PCP Internal Medicine
DX: K86.1 Other chronic pancreatitis (principal); F17.210 Nicotine dependence, cigarettes, uncomplicated; R10.13 Epigastric pain; R11.2 Nausea with vomiting, unspecified; R19.7 Diarrhea, unspecified
CPT/HCPCS: 80053; 83690; 85025; 96361; 96374; 96375; 99284; J0131

== ENCOUNTER 2023-02-28 05:14 | Emergency (ER) | payer BC, SELFPAY ==
[2023-02-28 05:16] VITALS: BP 119/88; PULSE 112; RESP 16; TEMP 36.7; O2SAT 96; BMI 37.9
[2023-02-28 05:26] VITALS: BMI 38.0
[2023-02-28 05:27] VITALS: BP 164/93; PULSE 123; RESP 16; TEMP 36.6; O2SAT 97; BMI 37.9
[2023-02-28 05:30] VITALS: BP 119/88; PULSE 108; O2SAT 96
[2023-02-28 05:40] VITALS: BP 117/75; PULSE 111; O2SAT 96
[2023-02-28 05:41] VITALS: BP 121/88; PULSE 97; O2SAT 96
[2023-02-28] MEDS: ACETAMINOPHEN 500MG TAB 1000 MG PO (05:43)
[2023-02-28] MEDS: PROMETHAZINE 25MG TABLET 25 MG PO (05:43)
[2023-02-28] MEDS: KETOROLAC 30MG/ML VIAL 30 MG IM (05:43)
[2023-02-28] MEDS: PANTOPRAZOLE 40MG TABLET 40 MG PO (05:44)
[2023-02-28] MEDS: BELLADONNA ALKALOIDS 60 ML ML PO (05:44)
[2023-02-28] MEDS: OXYCODONE 5MG IMMEDIATE RELEASE TABLET 10 MG PO (05:44)
--- NOTE | 2023-02-28 05:54 | HMH.EDGENADL ---
Discharge Plan Disposition Patient Disposition: Home, Self-Care Condition: Good Prescriptions Prescriptions: No Action olanzapine 7.5 mg tablet 7.5 mg PO HS 30 Days Qty: 30 2RF duloxetine 60 mg capsule,delayed release(DR/EC) 60 mg PO DAILY 30 Days Qty: 30 2RF cholecalciferol (vitamin D3) 125 mcg (5,000 unit) capsule 125 mcg PO DAILY 60 Days Qty: 60 3RF Creon 6,000-19,000 -30,000 unit capsule,delayed release(DR/EC) 1 cap PO DAILY lorazepam 2 mg tablet 2 mg PO BID PRN (Reason: anxiety and panic attacks) 30 Days Qty: 60 0RF oxycodone 10 mg tablet 10 mg PO QID PRN (Reason: chronic pancreatitis pain) 30 Days Qty: 120 0RF pregabalin [Lyrica] 300 mg capsule 300 mg PO BID 30 Days Qty: 60 1RF promethazine 25 mg suppository 25 mg NM Q6H PRN (Reason: nausea and vomiting) Qty: 12 0RF promethazine 25 mg tablet 25 mg PO Q6H PRN (Reason: nausea and vomiting) Qty: 20 0RF Referrals Follow up/Referrals: Rafiq Song DO [Primary Care Provider] - See instructions Activity Restrictions/Add. Instructions Additional Instructions/Restrictions: You were evaluated in the emergency department today. 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 Continue taking her medications at home as prescribed. Clinical Impressions Clinical Impression: Chronic pancreatitis, Opioid dependence Instructions Patient Instructions: DI for Chronic Pain -- Adult Discharge ED Provider: Svetlana Sanchez General Adult HPI General Chief complaint: Abdominal Pain Stated complaint: Abd pain,nausea,diarrhea Time Seen by Provider: 02/28/23 05:20 Mode of Arrival: Ambulatory Source of Information: Patient Limitations: No Limitations Description of Symptoms (Recalled from ER Triage Doc. by RN): pt c/o LUQ pain 10/02. pt has a hx of chronic pancreatitis. pt was discharged from on 02/24 for acute on chronic pancreatitis and sent home with 3d of pain meds. pt states she is now out of meds. History of Present Illness HPI narrative: This patient is a 37-year-old female with a history of chronic pancreatitis and chronic opioid dependence presented to the emergency department for evaluation with concern for increased left upper quadrant pain and burping. She was admitted to [facility] and discharged on 02/24 for acute on chronic pancreatitis. She was given 3 days of 2 mg oxycodone, which she has since run out of. She is now only on her daily 10 mg oxycodone, which she states is not providing her any relief. She took her last dose approximately 2 hours ago. No other concerns noted at this time. On medical record review from outside hospital, patient had reassuring labs while at [facility]. She was initially on Dilaudid, but was weaned down to oxycodone with plans to wean to her home dose and follow-up outpatient with pain management and gastroenterology. She declined CT scan and celiac block while admitted there. Related Data Home Medications Medication Instructions Recorded Confirmed [id number] 1 cap PO DAILY 02/05/23 02/19/23 6,000-19,000-30,000 unit capsule,delayed rel (Creon) Previous Rx's Medication Instructions Recorded cholecalciferol (vitamin D3) 125 125 mcg PO DAILY 60 days #60 caps 12/10/22 mcg (5,000 unit) capsule duloxetine 60 mg capsule,delayed 60 mg PO DAILY 30 days #30 caps 12/10/22 release olanzapine 7.5 mg tablet 7.5 mg PO HS 30 days #30 tabs 12/10/22 promethazine 25 mg rectal 25 mg NM Q6H PRN nausea and 01/31/23 suppository vomiting #12 ea lorazepam 2 mg tablet 2 mg PO BID PRN anxiety and panic 02/05/23 attacks 30 days #60 tabs oxycodone 10 mg tablet 10 mg PO QID PRN chronic 02/05/23 pancreatitis pain 30 days #120 tabs pregabalin 300 mg capsule (Lyrica) 300 mg PO BID pain 30 days #60 caps 02/05/23 promethazine 25 mg tablet 25 mg PO Q6H PRN nausea and 02/17/23 vomiting #20 tabs Allergies Allergy/AdvReac Type Severity Reaction Status Date / Time droperidol AdvReac Intermediate jaw go Verified 02/05/23 09:27 sideways PFSH PFS Disclaimer: The information contained in this section may have been updated after the patient was seen, as this information can be updated by other users. Medical History Abdominal pain Acute lower GI bleeding Acute pancreatitis Alcohol consumption binge drinking Anxiety Depressed Epigastric pain Gallbladder disease Gastroenteritis History of fracture of hand History of gastroesophageal reflux (GERD) Impetigo Left upper quadrant pain Nausea vomiting and diarrhea Osteoarthritis Overactive bladder Patient left without being seen Rupture of cyst of right ovary Sinusitis Thrush Surgical History History of cholecystectomy History of colonoscopy Hx of dilation and curettage Hx of endoscopic retrograde cholangiopancreatography Hx of esophagogastroduodenoscopy Family History Other Family history of acute congestive heart failure Family history of hyperlipidemia Family history of hypertension Social History Smoking Status: Current every day smoker tobacco type: cigarettes packs per day: 1 years smoked: 20 second hand exposure: No alcohol intake: former substance use type: former substance user and marijuana current occupational status: unemployed Travel in the last 8 weeks: None household members: significant other, family and children housing: house marital status: single number of children: 3 education level: high school caffeine: No special jeanette needs: No agree to transfusion: No do you feel safe at home: Yes victim of physical abuse: No victim of emotional abuse: No victim of sexual abuse: No would you like helpful sources: No ROS Obtained: Yes All systems reviewed & no additional complaints except as documented Physical Exam General General appearance: alert and in no apparent distress Head Head exam: atraumatic and normocephalic Eye Eye exam: Present normal appearance, PERRL and EOMI ENT ENT exam: Present normal exam, normal oropharynx, mucous membranes moist and normal external ear exam Neck Neck exam: Present normal inspection, full ROM and trachea midline; Absent tenderness Chest Chest inspection: Present normal inspection and symmetric chest wall rise; Absent tenderness Respiratory Respiratory exam: Present normal lung sounds bilaterally; Absent respiratory distress, wheezes, stridor or accessory muscle use Cardiovascular Cardiovascular exam: Present normal rhythm and tachycardia Abdominal Exam Abdominal exam: Present soft, tenderness (Left upper quadrant) and normal bowel sounds; Absent distention, guarding, rebound or rigidity Extremities Exam Extremities exam: Present normal inspection, full ROM and normal capillary refill; Absent tenderness or edema Back Exam Back exam: Present normal inspection and full ROM; Absent tenderness Neurological Exam Neurological exam: Present alert, oriented X3, CN II-XII intact and normal gait; Absent motor sensory deficit Psychiatric Psychiatric exam: Present normal affect and normal mood Skin Skin exam: Present warm and dry Medical Decision Making Medical Records Medical records reviewed: Yes I reviewed the patient's medical records. Ramses Inquiry Pt receiving controlled substance: No Vital Signs: 02/28/23 05:27 02/28/23 05:16 Temperature 98 F 98.0 F Temperature Source Oral Oral Pulse Rate [Left] 123 H 112 H Respiratory Rate 16 16 Blood Pressure [Right Arm] 164/93 H 119/88 Blood Pressure Mean [Right Arm] 116 98 Blood Pressure Source [Right Arm] Automatic Cuff Automatic Cuff Blood Pressure Position [Right Arm] Sitting Sitting 02 Sat by Pulse Oximetry 97 96 Oxygen Delivery Method Room Air Room Air Lab Data Lab results reviewed: Yes I reviewed the patient's lab results. Lab Results 02/28/23 06:03: WBC 5.6, RBC 4.39, Hgb 12.3, Hct 35.7 L, MCV 81.4, MCH 28.1, MCHC 34.5, RDW 16.7, Plt Count 253, MPV 8.0, Neut % (Auto) 61.9, Lymph % (Auto) 29.7, Maries % (Auto) 4.2, Eos % (Auto) 3.7, Baso % (Auto) 0.5, Neut # (Auto) 3.5, Lymph # (Auto) 1.7, Maries # (Auto) 0.2, Eos # (Auto) 0.2, Baso # (Auto) 0.0, Sodium 134 L, Potassium 3.5, Chloride 104, Carbon Dioxide 28, Anion Gap 5.5, BUN 10, Creatinine 0.70, Estimated Creat Clear 181, Estimated GFR 95, Est GFR ( Amer) 115, Glucose 124 H, Calcium 8.8, Total Bilirubin 0.5, AST 28, ALT 28, Alkaline Phosphatase 85, Total Protein 6.7, Albumin 3.9, Globulin 2.8, Albumin/Globulin Ratio 1.4, Lipase 163 02/28/23 06:33: Urine Color Yellow, Urine Appearance Clear, Urine pH 7.0, Ur Specific [place] 1.025, Urine Protein Negative, Urine Glucose (UA) Negative, Urine Ketones Negative, Urine Blood Negative, Urine Nitrate Negative, Urine Bilirubin Negative, Urine Urobilinogen 1.0, Ur Leukocyte Esterase Trace 02/28/23 06:03 02/28/23 06:03 Orders (Tests/Meds): ED MEDICATIONS Discontinued Medications Generic Name Dose Route Start Last Admin Trade Name Eugeneq PRN Reason Stop Dose Admin Acetaminophen 1,000 mg 02/28/23 05:26 02/28/23 05:43 Acetaminophen 500mg Tab PO 02/28/23 05:27 1,000 mg ONCE ONE Administration Belladonna Alkaloids 60 ml 02/28/23 05:31 02/28/23 05:44 Belladonna Alkaloids 60 Ml Ml PO 02/28/23 05:32 60 ml ONCE ONE Administration Ketorolac Tromethamine 30 mg 02/28/23 05:26 02/28/23 05:43 Ketorolac 30mg/Ml Vial IM 02/28/23 05:27 30 mg ONCE ONE Administration Oxycodone HCl 10 mg 02/28/23 05:31 02/28/23 05:44 Oxycodone 5mg Immediate Release Tablet PO 02/28/23 05:32 10 mg ONCE ONE Administration Pantoprazole Sodium 40 mg 02/28/23 05:32 02/28/23 05:44 Pantoprazole 40mg Tablet PO 02/28/23 05:33 40 mg ONCE ONE Administration Promethazine HCl 25 mg 02/28/23 05:26 02/28/23 05:43 Promethazine 25mg Tablet PO 02/28/23 05:27 25 mg ONCE ONE Administration ORDERS Category Date Time Status Complete Blood Count Auto Diff Stat Lab 02/28/23 06:03 Completed Comprehensive Metabolic Panel Stat Lab 02/28/23 06:03 Completed Drug Screen,Urine Stat Lab 02/28/23 06:33 Received Lipase Stat Lab 02/28/23 06:03 Completed Urinalysis and Microscopic Stat Lab 02/28/23 06:33 Results Medical Decision Narrative: In summary, this patient is a 37-year-old female presenting to the Emergency Department for evaluation of left upper quadrant abdominal pain and belching in the setting of chronic pancreatitis. Differential diagnoses considered include but are not limited to acute on chronic pancreatitis, gastritis, peptic ulcer disease, constipation, opioid dependence. Ruling out the most morbid conditions drove assessment. On exam, the patient is nontoxic-appearing with left upper quadrant tenderness but no rebound or guarding. No other tenderness noted. Workup included CBC, CMP, and lipase. Patient was given oral oxycodone, Tylenol, IM Toradol, oral GI cocktail, oral Phenergan, and oral pantoprazole for symptomatic improvement. On reassessment, patient is in no acute distress. Labs do not demonstrate any acutely concerning abnormalities. Given this, I feel patient appropriate for discharge home with instructions for continued supportive management of her chronic pain. She is given instructions to follow-up with her automobile service station mechanic, primary care provider and also her marine painter. She was discharged in stable condition with strict return precautions. Critical Care Critical Care Time Critical Care Time: No
--- NOTE | 2023-02-28 06:06 | PC.NURSE ---
labs were collected and sent, patient was straight stuck
[2023-02-28 06:10] LABS: Basophils % 0.5 % (0.1-2.0); Eosinophils # 0.2 K/mm3 (0.0-0.4); Eosinophils % 3.7 % (0.1-12.0); Hematocrit 35.7 % (37.0-47.0); Hemoglobin 12.3 g/dL (12.2-16.2); Lymphocytes # 1.7 K/mm3 (0.7-4.5); Lymphocytes % 29.7 % (10-50); Mean Corpuscular HGB Conc 34.5 g/dL (31.8-35.4); Mean Corpuscular Hemoglobin 28.1 pg (27.0-31.2); Mean Corpuscular Volume 81.4 fl (81-99); Monocytes # 0.2 K/mm3 (0.1-1.0); Monocytes % 4.2 % (1.7-9.3); Neutrophils # 3.5 K/mm3 (1.8-7.8); Neutrophils % 61.9 % (37.0-80.0); Platelet Count 253 K/mm3 (142-424); Red Blood Count 4.39 M/mm3 (4.20-5.40); Red Cell Distribution Width 16.7 % (11.5-17.5); White Blood Count 5.6 K/mm3 (4.8-10.8)
[2023-02-28 06:20] LABS: Alanine Aminotransferase 28 U/L (12-78); Albumin Level 3.9 g/dl (3.5-5.0); Albumin/Globulin Ratio 1.4 (1.1-1.8); Alkaline Phosphatase 85 U/L (38-126); Anion Gap 5.5 mEq/L (5-15); Aspartate Amino Transferase 28 U/L (14-36); Bilirubin,Total 0.5 mg/dl (0.2-1.3); Blood Urea Nitrogen 10 mg/dl (7-17); Calcium 8.8 mg/dl (8.4-10.2); Carbon Dioxide 28 mmol/L (22.0-30.0); Chloride 104 mmol/L (98-107); Creatinine Clearance Estimated 181 mL/min (50-200); Estimated Glomerular Filt Rate 95 ml/min (>60); GFR (African American) 115 ML/MIN (>60); Globulin 2.8 g/dL (1.3-3.2); Glucose 124 mg/dl (74-100); Lipase 163 U/L (23-300); Potassium 3.5 mmoL/L (3.5-5.1); Sodium 134 mmol/L (136-145); Total Protein,Serum 6.7 g/dl (6.3-8.2)
--- NOTE | 2023-02-28 06:45 | PC.NURSE ---
urine collected and sent to lab
[2023-02-28 06:50] LABS: Microscopic, Urine URINE MICROSCOPIC (MICROSCOPIC)
[2023-02-28 06:56] LABS: Appearance,Urine CLEAR (Clear); Blood, Urine Negative (Negative); Color,Urine YELLOW (Yellow); Glucose,Urine (UA) Negative (Negative); Ketones,Urine Negative (Negative); Leukocyte Esterase,Urine TRACE (Negative); Nitrate,Urine Negative (Negative); Protein,Urine Negative (Negative); Specific Gravity, Urine 1.025 (1.005-1.030)
[2023-02-28 06:57] LABS: Bilirubin,Urine Negative (Negative)
[2023-02-28 07:17] LABS: Amphetamine/Metha Screen,Urine Negative ng/ml (<1000); Barbiturates Screen,Urine Negative ng/ml (<200); Benzodiazepines Screen,Urine Negative ng/ml (<200); Cannabinoid Screen,Urine Positive ng/ml (<50); Cocaine Screen,Urine Negative ng/ml (<300); Methadone Screen,Urine Negative ng/ml (<300); Opiate Screen,Urine Negative ng/ml (<300); Phencyclidine Screen,Urine Negative ng/ml (<25)
[2023-02-28] MEDS: HYDROMORPHONE 2MG/ML SYRINGE 1 MG IM (07:31)
[2023-02-28 07:53] VITALS: BP 123/96; PULSE 74; RESP 18; TEMP 36.7; O2SAT 95
== END 2023-02-28 07:54 | disposition home or self-care (01) ==
PROVIDERS: Emergency Provider Emergency Medicine; PCP Internal Medicine
DX: K86.1 Other chronic pancreatitis (principal); F11.20 Opioid dependence, uncomplicated; R10.12 Left upper quadrant pain; F17.210 Nicotine dependence, cigarettes, uncomplicated
CPT/HCPCS: 80053; 80307; 81001; 83690; 85025; 96372; 99285

== ENCOUNTER 2023-03-01 03:50 | Emergency (ER) | payer BC, SELFPAY ==
[2023-03-01 03:50] VITALS: BP 135/91; PULSE 115; RESP 18; TEMP 36.6; O2SAT 97; BMI 37.9
--- NOTE | 2023-03-01 03:52 | HMH.EDGENADL ---
Discharge Plan Disposition Patient Disposition: Home, Self-Care Condition: Good Prescriptions Prescriptions: No Action olanzapine 7.5 mg tablet 7.5 mg PO HS 30 Days Qty: 30 2RF duloxetine 60 mg capsule,delayed release(DR/EC) 60 mg PO DAILY 30 Days Qty: 30 2RF cholecalciferol (vitamin D3) 125 mcg (5,000 unit) capsule 125 mcg PO DAILY 60 Days Qty: 60 3RF Creon 6,000-19,000 -30,000 unit capsule,delayed release(DR/EC) 1 cap PO DAILY lorazepam 2 mg tablet 2 mg PO BID PRN (Reason: anxiety and panic attacks) 30 Days Qty: 60 0RF oxycodone 10 mg tablet 10 mg PO QID PRN (Reason: chronic pancreatitis pain) 30 Days Qty: 120 0RF pregabalin [Lyrica] 300 mg capsule 300 mg PO BID 30 Days Qty: 60 1RF promethazine 25 mg suppository 25 mg IN Q6H PRN (Reason: nausea and vomiting) Qty: 12 0RF promethazine 25 mg tablet 25 mg PO Q6H PRN (Reason: nausea and vomiting) Qty: 20 0RF Referrals Follow up/Referrals: Provider,Referral, MD [Primary Care Provider] - See instructions Activity Restrictions/Add. Instructions Additional Instructions/Restrictions: Please follow-up outpatient with your primary care provider as well as your pain management doctor right away. Clinical Impressions Clinical Impression: Chronic abdominal pain Instructions Patient Instructions: DI for Chronic Pain -- Adult Discharge ED Provider: Svetlana Sanchez General Adult HPI General Chief complaint: Abdominal Pain Stated complaint: abd pain Time Seen by Provider: 03/01/23 03:51 History of Present Illness HPI narrative: This patient is a 37-year-old female with history of chronic pancreatitis, chronic pain, chronic opioid dependence presented to the emergency department for evaluation with concern for left upper quadrant and epigastric abdominal pain. This is no different from her prior pancreatitis flares. She is taking her oxycodone at home with no relief. No new concerns. She does not have an appointment with her primary care physician until 03/04/2023, so she has had multiple ED visits for pain control in the meantime. She was seen yesterday by myself for the same symptoms. At that time, she was given 1 dose of IM Dilaudid as well as 1 dose of oral oxycodone. I explained to her that she cannot continue getting treatment of chronic pain with narcotic pain medications in the emergency department, and she expressed understanding and agreement and was discharged home after reassuring lab evaluation. Interestingly, her urine drug screen was negative at that time despite being discharged home from [facility] on oxycodone and noting that she is taking her oxycodone at home as prescribed. Related Data Home Medications Medication Instructions Recorded Confirmed [id number] 1 cap PO DAILY 02/05/23 02/19/23 6,000-19,000-30,000 unit capsule,delayed rel (Creon) Previous Rx's Medication Instructions Recorded cholecalciferol (vitamin D3) 125 125 mcg PO DAILY 60 days #60 caps 12/10/22 mcg (5,000 unit) capsule duloxetine 60 mg capsule,delayed 60 mg PO DAILY 30 days #30 caps 12/10/22 release olanzapine 7.5 mg tablet 7.5 mg PO HS 30 days #30 tabs 12/10/22 promethazine 25 mg rectal 25 mg IN Q6H PRN nausea and 01/31/23 suppository vomiting #12 ea lorazepam 2 mg tablet 2 mg PO BID PRN anxiety and panic 02/05/23 attacks 30 days #60 tabs oxycodone 10 mg tablet 10 mg PO QID PRN chronic 02/05/23 pancreatitis pain 30 days #120 tabs pregabalin 300 mg capsule (Lyrica) 300 mg PO BID pain 30 days #60 caps 02/05/23 promethazine 25 mg tablet 25 mg PO Q6H PRN nausea and 02/17/23 vomiting #20 tabs Allergies Allergy/AdvReac Type Severity Reaction Status Date / Time droperidol AdvReac Intermediate jaw go Verified 02/05/23 09:27 sideways PFSH PFS Disclaimer: The information contained in this section may have been updated after the patient was seen, as this information can be updated by other users. Medical History Abdominal pain Acute lower GI bleeding Acute pancreatitis Alcohol consumption binge drinking Anxiety Depressed Epigastric pain Gallbladder disease Gastroenteritis History of fracture of hand History of gastroesophageal reflux (GERD) Impetigo Left upper quadrant pain Nausea vomiting and diarrhea Osteoarthritis Overactive bladder Patient left without being seen Rupture of cyst of right ovary Sinusitis Thrush Surgical History History of cholecystectomy History of colonoscopy Hx of dilation and curettage Hx of endoscopic retrograde cholangiopancreatography Hx of esophagogastroduodenoscopy Family History Other Family history of acute congestive heart failure Family history of hyperlipidemia Family history of hypertension Social History Smoking Status: Current every day smoker tobacco type: cigarettes packs per day: 1 years smoked: 20 second hand exposure: No alcohol intake: former substance use type: former substance user and marijuana current occupational status: unemployed Travel in the last 8 weeks: None household members: significant other, family and children housing: house marital status: single number of children: 3 education level: high school caffeine: No special jeanette needs: No agree to transfusion: No do you feel safe at home: Yes victim of physical abuse: No victim of emotional abuse: No victim of sexual abuse: No would you like helpful sources: No ROS Obtained: Yes All systems reviewed & no additional complaints except as documented Physical Exam General General appearance: alert, in no apparent distress and obese Head Head exam: atraumatic and normocephalic Eye Eye exam: Present normal appearance, PERRL and EOMI ENT ENT exam: Present normal exam, normal oropharynx, mucous membranes moist and normal external ear exam Neck Neck exam: Present normal inspection, full ROM and trachea midline; Absent tenderness Chest Chest inspection: Present normal inspection and symmetric chest wall rise; Absent tenderness Respiratory Respiratory exam: Present normal lung sounds bilaterally; Absent respiratory distress, wheezes, stridor or accessory muscle use Cardiovascular Cardiovascular exam: Present regular rate and normal rhythm Abdominal Exam Abdominal exam: Present soft, tenderness (LUQ/epigastric) and normal bowel sounds; Absent distention, guarding, rebound or rigidity Extremities Exam Extremities exam: Present normal inspection, full ROM and normal capillary refill; Absent tenderness or edema Back Exam Back exam: Present normal inspection and full ROM; Absent tenderness Neurological Exam Neurological exam: Present alert, oriented X3, CN II-XII intact and normal gait; Absent motor sensory deficit Psychiatric Psychiatric exam: Present normal affect and normal mood Skin Skin exam: Present warm and dry Medical Decision Making Medical Records Medical records reviewed: Yes I reviewed the patient's medical records. Ramses Inquiry Pt receiving controlled substance: No Vital Signs: 03/01/23 03:50 03/01/23 04:00 03/01/23 05:12 Temperature 98 F Temperature Source Oral Pulse Rate 106 H 85 Pulse Rate [Right] 115 H Respiratory Rate 18 Blood Pressure 126/96 H 131/96 H Blood Pressure [Right Arm] 135/91 H Blood Pressure Mean [Right Arm] 105 02 Sat by Pulse Oximetry 97 97 97 03/01/23 05:32 03/01/23 06:31 Temperature 98 F Temperature Source Oral Pulse Rate 86 77 Pulse Rate [Right] Respiratory Rate 14 Blood Pressure 128/90 143/72 H Blood Pressure [Right Arm] Blood Pressure Mean [Right Arm] 02 Sat by Pulse Oximetry 98 Lab Data Lab results reviewed: Yes I reviewed the patient's lab results. Lab Results 03/01/23 04:53: Serum HCG, Qual Negative Orders (Tests/Meds): ED MEDICATIONS Discontinued Medications Generic Name Dose Route Start Last Admin Trade Name Freq PRN Reason Stop Dose Admin Acetaminophen 1,000 mg 03/01/23 03:51 03/01/23 03:57 Acetaminophen 500mg Tab PO 03/01/23 03:52 1,000 mg ONCE ONE Administration Belladonna Alkaloids 60 ml 03/01/23 06:20 03/01/23 06:21 Belladonna Alkaloids 60 Ml Ml PO 03/01/23 06:21 60 ml ONCE ONE Administration Lactated Ringer's 1,000 mls @ 999 mls/hr 03/01/23 04:41 03/01/23 05:08 Lactated Ringer's 1000 Ml Bag IV 03/01/23 05:41 999 mls/hr .Q1H1M ONE Administration Iopamidol 75 ml 03/01/23 05:29 03/01/23 05:30 Iopamidol-370 (76%);100ml Bottle IV 03/01/23 05:30 75 ml ONCE ONE Administration Ketorolac Tromethamine 30 mg 03/01/23 03:51 03/01/23 03:57 Ketorolac 30mg/Ml Vial IM 03/01/23 03:52 30 mg ONCE ONE Administration Ondansetron HCl 4 mg 03/01/23 03:51 03/01/23 03:57 Ondansetron 4mg/2ml Vial IM 03/01/23 03:52 4 mg ONCE ONE Administration Sodium Chloride 10 ml 03/01/23 05:29 03/01/23 05:30 Sodium Chloride 0.9% 10ml Syr (Rad Only) IV 03/01/23 05:30 10 ml ONCE ONE Administration ORDERS Category Date Time Status CT abdomen pelvis w con Stat Cat Scan 03/01/23 04:41 Completed HCG Qualitative, Serum Stat Lab 03/01/23 04:53 Completed Medical Decision Narrative: In summary, this patient is a 37-year-old female presenting to the Emergency Department for evaluation of chronic left upper quadrant and epigastric pain. Differential diagnoses considered include but are not limited to chronic pancreatitis, chronic pain, malingering, opioid abuse. Ruling out the most morbid conditions drove assessment. It should be noted patient's history includes chronic pain which is not at goal therapy. This complicates all aspects of care by increasing patient's risk for morbidity. I reviewed patient's past medical records and noted multiple previous visits as per HPI. On exam, patient is in her usual state of health with continued left upper quadrant and epigastric pain and tenderness. No rebound or guarding. Patient had reassuring labs less than 24 hours ago. I do not feel that labs or imaging are indicated at this time. Patient was given IM Toradol, oral Tylenol, and IM Zofran for symptomatic improvement of her chronic pancreatitis. I explained to her that I feel it is harmful to her to continue to give her narcotic pain medications to treat chronic pain that are not prescribed to her on a regular basis, as we are further building dependence and tolerance. I explained to her that I do not want to worsen this for her. Patient maintains that her pain is different and is concerned that she may need a CT scan. Labs are reassuring less than 24 hours ago. To further assess, CT scan of the abdomen and pelvis with IV contrast was ordered once serum test was determined to be negative. On reassessment, patient is in no acute distress. Vitals are normal on cardiac telemetry. I independently interpreted CT scan prior to radiology read and noted no acute inflammation. Please see their read for final documentation. She has known gastroesophageal reflux, so gastritis could be contributing to her symptoms. Given this, she was given a GI cocktail for symptomatic improvement. At this time, based on reassuring history, exam, and workup, I feel she is appropriate for discharge with close follow-up for management of her chronic pain. She already has follow-up with her primary care provider arranged this week. She she was given strict return precautions and discharged in stable condition. Critical Care Critical Care Time Critical Care Time: No
[2023-03-01] MEDS: ONDANSETRON 4MG/2ML VIAL 4 MG IM (03:57)
[2023-03-01] MEDS: KETOROLAC 30MG/ML VIAL 30 MG IM (03:57)
[2023-03-01] MEDS: ACETAMINOPHEN 500MG TAB 1000 MG PO (03:57)
[2023-03-01 04:00] VITALS: BP 126/96; PULSE 106; O2SAT 97
--- NOTE | 2023-03-01 04:41 | CT_ITS ---
PROCEDURE INFORMATION: Exam: CT Abdomen And Pelvis With Contrast Exam date and time: 03/01/2023 5:20 AM Age: 37 years old Clinical indication: Abdominal pain; Additional info: Luq/epigastric pain, h/o pancreatitis TECHNIQUE: Imaging protocol: Computed tomography of the abdomen and pelvis with contrast. Radiation optimization: All CT scans at this facility use at least one of these dose optimization techniques: automated exposure control; mA and/or kV adjustment per patient size (includes targeted exams where dose is matched to clinical indication); or iterative reconstruction. Contrast material: ISOVUE; Contrast volume: 75 ml; Contrast route: IV; COMPARISON: CT ABDOMEN PELVIS W CON 02/01/2023 6:23 PM FINDINGS: Liver: Diffuse hepatic steatosis. Gallbladder and bile ducts: Prior cholecystectomy. Pancreas: Pancreas is unremarkable no peripancreatic edema or other signs of acute pancreatitis noted. Spleen: Normal. No splenomegaly. Adrenal glands: Normal. No mass. Kidneys and ureters: Normal. No hydronephrosis. Stomach and bowel: Unremarkable. No obstruction. No mucosal thickening. Appendix: No evidence of appendicitis. Intraperitoneal space: Unremarkable. No free air. No significant fluid collection. Vasculature: Unremarkable. No abdominal aortic aneurysm. Lymph nodes: Unremarkable. No enlarged lymph nodes. Urinary bladder: Unremarkable as visualized. Reproductive: Previously noted left adnexal cyst has resolved. Bones/joints: Unremarkable. No acute fracture. Soft tissues: Unremarkable. IMPRESSION: 1. Previously noted left adnexal cyst has resolved. 2. Diffuse hepatic steatosis. 3. Cholecystectomy. 4. Pancreas is unremarkable no peripancreatic edema or other signs of acute pancreatitis noted.
[2023-03-01] MEDS: LACTATED RINGERS 1000ML 1,000 ML 999 ML IV (05:08)
[2023-03-01 05:09] LABS: HCG Qualitative, Serum Negative (Negative)
[2023-03-01 05:12] VITALS: BP 131/96; PULSE 85; O2SAT 97
[2023-03-01] MEDS: IOPAMIDOL-370 (76%);100ML BOTTLE 75 ML IV (05:30)
[2023-03-01] MEDS: SODIUM CHLORIDE 0.9% 10ML SYR (RAD ONLY) 10 ML IV (05:30)
[2023-03-01 05:32] VITALS: BP 128/90; PULSE 86; O2SAT 98
[2023-03-01] MEDS: BELLADONNA ALKALOIDS 60 ML ML PO (06:21)
[2023-03-01 06:31] VITALS: BP 143/72; PULSE 77; RESP 14; TEMP 36.6; O2SAT 99
== END 2023-03-01 07:13 | disposition home or self-care (01) ==
PROVIDERS: Emergency Provider Emergency Medicine
DX: R10.13 Epigastric pain (principal); R10.12 Left upper quadrant pain; K86.1 Other chronic pancreatitis; F17.210 Nicotine dependence, cigarettes, uncomplicated
CPT/HCPCS: 74177; 84703; 96360; 96372; 99284; J2405; Q9967

== ENCOUNTER 2023-04-01 14:44 | Emergency (ER) | payer BC, SELFPAY ==
[2023-04-01 14:53] VITALS: BP 150/95; PULSE 91; RESP 22; TEMP 36.9; O2SAT 97; BMI 38.6
--- NOTE | 2023-04-01 15:12 | ED_ITS ---
Discharge Plan Disposition Patient Disposition: Home, Self-Care Prescriptions Prescriptions: No Action olanzapine 7.5 mg tablet 7.5 mg PO HS 30 Days Qty: 30 2RF lorazepam 2 mg tablet 2 mg PO BID PRN (Reason: anxiety and panic attacks) 30 Days Qty: 60 0RF oxycodone 10 mg tablet 10 mg PO QID PRN (Reason: chronic pancreatitis pain) 30 Days Qty: 120 0RF pregabalin [Lyrica] 300 mg capsule 300 mg PO BID 30 Days Qty: 60 1RF cholecalciferol (vitamin D3) 125 mcg (5,000 unit) capsule 125 mcg PO DAILY 30 Days Qty: 30 0RF duloxetine 60 mg capsule,delayed release(DR/EC) 60 mg PO DAILY 30 Days Qty: 30 0RF Creon 6,000-19,000 -30,000 unit capsule,delayed release(DR/EC) 1 cap PO DAILY 30 Days Qty: 30 0RF promethazine 25 mg suppository 25 mg CA Q6H PRN (Reason: nausea and vomiting) Qty: 12 0RF promethazine 25 mg tablet 25 mg PO Q6H PRN (Reason: nausea and vomiting) Qty: 20 0RF Referrals Follow up/Referrals: Rafiq Song DO [Primary Care Provider] - See instructions Clinical Impressions Clinical Impression: Chronic abdominal pain Instructions Patient Instructions: DI for Acute Abdominal Pain Discharge ED Provider: Ash Squires General Adult HPI General Chief complaint: Abdominal Pain Stated complaint: abd pain vomiting Time Seen by Provider: 04/01/23 15:03 Mode of Arrival: Ambulatory Source of Information: Patient Limitations: No Limitations Description of Symptoms (Recalled from ER Triage Doc. by RN): pt c/o LUQ pain, stabbing/throbbing in nature and 10/10 since last night. Pt has a hx of these attacks. Pt states her PCP stopped her oxycodone and ativan. Pt states she is trying to get established at for a PCP. History of Present Illness HPI narrative: Patient is a 37-year-old with chronic abdominal pain chronic pancreatitis who very frequently comes to our emergency department. She states her pain is chronic today and very similar to what it has been in the past. She states that she used to be a patient of Dr. Mckinley'stephanie and has been on oxycodone and lorazepam since he has no longer been a provider. She also states that she has been fired from Dr. Loja's office so she does not have a provider that is prescribing these medications anymore. She has an appoint with Dr. Castellon for her chronic pain later this month on the and presents to the emergency department for worsening of her chronic pain. Related Data Previous Rx's Medication Instructions Recorded olanzapine 7.5 mg tablet 7.5 mg PO HS 30 days #30 tabs 12/10/22 promethazine 25 mg rectal 25 mg CA Q6H PRN nausea and 01/31/23 suppository vomiting #12 ea lorazepam 2 mg tablet 2 mg PO BID PRN anxiety and panic 02/05/23 attacks 30 days #60 tabs oxycodone 10 mg tablet 10 mg PO QID PRN chronic 02/05/23 pancreatitis pain 30 days #120 tabs pregabalin 300 mg capsule (Lyrica) 300 mg PO BID pain 30 days #60 caps 02/05/23 promethazine 25 mg tablet 25 mg PO Q6H PRN nausea and 02/17/23 vomiting #20 tabs cholecalciferol (vitamin D3) 125 125 mcg PO DAILY vitamin d 03/13/23 mcg (5,000 unit) capsule deficiency 30 days #30 caps duloxetine 60 mg capsule,delayed 60 mg PO DAILY 30 days #30 caps 03/13/23 release [id number] 1 cap PO DAILY stomach issues 30 03/13/23 6,000-19,000-30,000 unit days #30 caps capsule,delayed rel (Creon) Allergies Allergy/AdvReac Type Severity Reaction Status Date / Time droperidol AdvReac Intermediate jaw go Verified 04/01/23 15:03 sideways [facility] Disclaimer: The information contained in this section may have been updated after the patient was seen, as this information can be updated by other users. Medical History Abdominal pain Acute lower GI bleeding Acute pancreatitis Alcohol consumption binge drinking Anxiety Depressed Epigastric pain Gallbladder disease Gastroenteritis History of fracture of hand History of gastroesophageal reflux (GERD) Impetigo Left upper quadrant pain Nausea vomiting and diarrhea Osteoarthritis Overactive bladder Patient left without being seen Rupture of cyst of right ovary Sinusitis Thrush Surgical History History of cholecystectomy History of colonoscopy Hx of dilation and curettage Hx of endoscopic retrograde cholangiopancreatography Hx of esophagogastroduodenoscopy Family History Other Family history of acute congestive heart failure Family history of hyperlipidemia Family history of hypertension Social History Smoking Status: Current every day smoker tobacco type: cigarettes packs per day: 1 years smoked: 20 second hand exposure: No alcohol intake: former substance use type: former substance user and marijuana current occupational status: unemployed Travel in the last 8 weeks: None household members: significant other, family and children housing: house marital status: single number of children: 3 education level: high school caffeine: No special jeanette needs: No agree to transfusion: No do you feel safe at home: Yes victim of physical abuse: No victim of emotional abuse: No victim of sexual abuse: No would you like helpful sources: No ROS Obtained: Yes All systems reviewed & no additional complaints except as documented Physical Exam General General appearance: alert Respiratory Respiratory exam: Present normal lung sounds bilaterally Cardiovascular Cardiovascular exam: Present regular rate Abdominal Exam Abdominal exam: Present soft; Absent distention or tenderness Neurological Exam Neurological exam: Present alert and oriented X3 Medical Decision Making Ramses Inquiry Pt receiving controlled substance: No Vital Signs: 04/01/23 14:53 Temperature 98.4 F Temperature Source Oral Pulse Rate [Left] 91 H Respiratory Rate 22 Blood Pressure [Right Arm] 150/95 H Blood Pressure Mean [Right Arm] 113 Blood Pressure Source [Right Arm] Automatic Cuff Blood Pressure Position [Right Arm] Sitting 02 Sat by Pulse Oximetry 97 Orders (Tests/Meds): ED MEDICATIONS Discontinued Medications Generic Name Dose Route Start Last Admin Trade Name Freq PRN Reason Stop Dose Admin Acetaminophen 1,000 mg 04/01/23 15:11 04/01/23 15:45 Acetaminophen 500mg Tab PO 04/01/23 15:12 Not Given ONCE ONE Belladonna Alkaloids 60 ml 04/01/23 15:11 04/01/23 15:45 Belladonna Alkaloids 60 Ml Ml PO 04/01/23 15:12 60 ml ONCE ONE Administration Ketorolac Tromethamine 60 mg 04/01/23 15:11 04/01/23 15:45 Ketorolac 60mg/2ml Vial IM 04/01/23 15:12 60 mg ONCE ONE Administration Ondansetron HCl 4 mg 04/01/23 15:11 04/01/23 15:45 Ondansetron 4mg Odt SL 04/01/23 15:12 4 mg ONCE ONE Administration ORDERS Category Date Time Status CBC w/Auto Diff [Complete Blood Count Auto Diff] Stat Lab 04/01/23 15:11 Ordered CMP [Comprehensive Metabolic Panel] Stat Lab 04/01/23 15:11 Ordered Lipase Stat Lab 04/01/23 15:11 Ordered Medical Decision Narrative: Patient is a 37-year-old female present today with chronic abdominal pain very frequently comes to the emergency department will get basic labs give her nonnarcotic medications including Toradol Zofran Tylenol and a GI cocktail. I very specifically told her that it is not a good idea to be treating chronic pain with opiates in the emergency department and that we will be the stance that our department will be taking in the future with her particular case. We of course will care for her emergent setting and try make sure there is no emergent medical condition and if in fact there is an acute or different problem that is ongoing appropriate use of opiates in that setting will be used but this is chronic pain. I am going to call Dr. Castellon to see if we can get her in sooner for further management of her chronic pain which she is agreeable to. We discussed the case with Dr. Castellon's office and they have no openings and state they will call her if there is any opening available before the . After patient was declined opiate pain medication she asked for her discharge paperwork and was ready to go. I suspect she does not have a surgical emergency her exam is not consistent with that. She left prior to labs being drawn. I did not make her sign out AGAINST MEDICAL ADVICE. She is been advised to keep her follow-up appoint with Dr. Castellon and to do her best to follow-up with primary care doctor regarding her chronic pain control. Critical Care Critical Care Time Critical Care Time: No
[2023-04-01] MEDS: KETOROLAC 60MG/2ML VIAL 60 MG IM (15:45)
[2023-04-01] MEDS: ONDANSETRON 4MG ODT 4 MG SL (15:45)
[2023-04-01] MEDS: BELLADONNA ALKALOIDS 60 ML ML PO (15:45)
--- NOTE | 2023-04-01 15:52 | PC.NURSE ---
ok for pt to DC before labs are drawn, pt states that she is ready to be DC and wants her papers
[2023-04-01 15:56] VITALS: BP 151/88; PULSE 68; RESP 16; TEMP 36.6
== END 2023-04-01 15:57 | disposition home or self-care (01) ==
PROVIDERS: Emergency Provider Student in an Organized Health Care Education/Training Program; PCP Internal Medicine
DX: R10.12 Left upper quadrant pain (principal); K86.1 Other chronic pancreatitis; G89.29 Other chronic pain; F17.210 Nicotine dependence, cigarettes, uncomplicated
CPT/HCPCS: 96372; 99284

== ENCOUNTER 2023-04-04 10:05 | Emergency (ER) | payer BC, SELFPAY ==
--- NOTE | 2023-04-04 10:06 | PC.NURSE ---
DR NG AT BEDSIDE
[2023-04-04 10:07] VITALS: BP 135/92; PULSE 92; RESP 20; TEMP 36.8; O2SAT 98; BMI 38.6
--- NOTE | 2023-04-04 10:10 | HMH.EDGENADL ---
Discharge Plan Disposition Patient Disposition: Home, Self-Care Prescriptions Prescriptions: No Action olanzapine 7.5 mg tablet 7.5 mg PO HS 30 Days Qty: 30 2RF lorazepam 2 mg tablet 2 mg PO BID PRN (Reason: anxiety and panic attacks) 30 Days Qty: 60 0RF oxycodone 10 mg tablet 10 mg PO QID PRN (Reason: chronic pancreatitis pain) 30 Days Qty: 120 0RF pregabalin [Lyrica] 300 mg capsule 300 mg PO BID 30 Days Qty: 60 1RF cholecalciferol (vitamin D3) 125 mcg (5,000 unit) capsule 125 mcg PO DAILY 30 Days Qty: 30 0RF duloxetine 60 mg capsule,delayed release(DR/EC) 60 mg PO DAILY 30 Days Qty: 30 0RF Creon 6,000-19,000 -30,000 unit capsule,delayed release(DR/EC) 1 cap PO DAILY 30 Days Qty: 30 0RF promethazine 25 mg suppository 25 mg [place] Q6H PRN (Reason: nausea and vomiting) Qty: 12 0RF promethazine 25 mg tablet 25 mg PO Q6H PRN (Reason: nausea and vomiting) Qty: 20 0RF Activity Restrictions/Add. Instructions Additional Instructions/Restrictions: Please follow-up with your primary care doctor and with Dr. Castellon as previously instructed. No evidence of an emergent medical condition today. Clinical Impressions Clinical Impression: Chronic abdominal pain Instructions Patient Instructions: DI for Acute Abdominal Pain Discharge ED Provider: Ash Squires General Adult HPI General Chief complaint: Abdominal Pain Stated complaint: ABDOMINAL PAIN Time Seen by Provider: 04/04/23 10:07 Mode of Arrival: EMS Source of Information: Patient and EMS Limitations: No Limitations Description of Symptoms (Recalled from ER Triage Doc. by RN): abdominal pain is increasingly worse. midline History of Present Illness HPI narrative: Is a 37-year-old very well-known to our emergency department presents frequently for chronic abdominal pain. She was here just a few days ago where she was offered nonopiate pain medication she refused to stay in the emergency department for lab testing at that time. She has not followed up with her primary care doctor in fact she has been fired from recent primary care doctor and she lost her opiate prescriptions including oxycodone and also lorazepam when Dr. Mckinley was no longer primary care doctor. She also has attempted to try to get into our pain specialist Dr. Castellon but has an appointment on the . We called Dr. Castellon office last time she was in the emergency department just a few days ago and they did not have any other openings but she still plans on going there. Pain is epigastric today in the same location as her chronic abdominal pain. She is also been followed by [facility] game technician in the past. Related Data Previous Rx's Medication Instructions Recorded olanzapine 7.5 mg tablet 7.5 mg PO HS 30 days #30 tabs 12/10/22 promethazine 25 mg rectal 25 mg NJ Q6H PRN nausea and 01/31/23 suppository vomiting #12 ea lorazepam 2 mg tablet 2 mg PO BID PRN anxiety and panic 02/05/23 attacks 30 days #60 tabs oxycodone 10 mg tablet 10 mg PO QID PRN chronic 02/05/23 pancreatitis pain 30 days #120 tabs pregabalin 300 mg capsule (Lyrica) 300 mg PO BID pain 30 days #60 caps 02/05/23 promethazine 25 mg tablet 25 mg PO Q6H PRN nausea and 02/17/23 vomiting #20 tabs cholecalciferol (vitamin D3) 125 125 mcg PO DAILY vitamin d 03/13/23 mcg (5,000 unit) capsule deficiency 30 days #30 caps duloxetine 60 mg capsule,delayed 60 mg PO DAILY 30 days #30 caps 03/13/23 release [id number] 1 cap PO DAILY stomach issues 30 03/13/23 6,000-19,000-30,000 unit days #30 caps capsule,delayed rel (Creon) Allergies Allergy/AdvReac Type Severity Reaction Status Date / Time droperidol AdvReac Intermediate jaw go Verified 04/01/23 15:03 sideways PFSH COUNTS INCLUDE 234 BEDS AT THE [facility] Disclaimer: The information contained in this section may have been updated after the patient was seen, as this information can be updated by other users. Medical History Abdominal pain Acute lower GI bleeding Acute pancreatitis Alcohol consumption binge drinking Anxiety Depressed Epigastric pain Gallbladder disease Gastroenteritis History of fracture of hand History of gastroesophageal reflux (GERD) Impetigo Left upper quadrant pain Nausea vomiting and diarrhea Osteoarthritis Overactive bladder Patient left without being seen Rupture of cyst of right ovary Sinusitis Thrush Surgical History History of cholecystectomy History of colonoscopy Hx of dilation and curettage Hx of endoscopic retrograde cholangiopancreatography Hx of esophagogastroduodenoscopy Family History Other Family history of acute congestive heart failure Family history of hyperlipidemia Family history of hypertension Social History Smoking Status: Never smoker years smoked: 20 second hand exposure: No alcohol intake: former substance use type: former substance user and marijuana current occupational status: unemployed Travel in the last 8 weeks: None household members: significant other, family and children housing: house marital status: single number of children: 3 education level: high school caffeine: No special jeanette needs: No agree to transfusion: No do you feel safe at home: Yes victim of physical abuse: No victim of emotional abuse: No victim of sexual abuse: No would you like helpful sources: No ROS Obtained: Yes All systems reviewed & no additional complaints except as documented Physical Exam General General appearance: alert Respiratory Respiratory exam: Present normal lung sounds bilaterally Cardiovascular Cardiovascular exam: Present regular rate Abdominal Exam Abdominal exam: Present soft and distention; Absent tenderness Neurological Exam Neurological exam: Present alert and oriented X3 Medical Decision Making Ramses Inquiry Pt receiving controlled substance: No Vital Signs: 04/04/23 10:07 Temperature 98.3 F Temperature Source Oral Pulse Rate [Right] 92 H Respiratory Rate 20 Blood Pressure [Right Arm] 135/92 H Blood Pressure Mean [Right Arm] 106 02 Sat by Pulse Oximetry 98 Oxygen Delivery Method Room Air Lab Data Lab results reviewed: Yes I reviewed the patient's lab results. Lab Results 04/04/23 10:50: WBC 4.7 L, RBC 4.27, Hgb 11.4 L, Hct 34.4 L, MCV 80.6 L, MCH 26.8 L, MCHC 33.3, RDW 17.7 H, Plt Count 230, MPV 8.2, Neut % (Auto) 69.9, Lymph % (Auto) 23.2, Ashley % (Auto) 3.6, Eos % (Auto) 2.8, Baso % (Auto) 0.6, Neut # (Auto) 3.3, Lymph # (Auto) 1.1, Ashley # (Auto) 0.2, Eos # (Auto) 0.1, Baso # (Auto) 0.0, Sodium 139, Potassium 4.0, Chloride 108 H, Carbon Dioxide 25, Anion Gap 10.0, BUN 10, Creatinine 0.50 L, Estimated Creat Clear 258, Estimated GFR 140, Est GFR ( Amer) 169, Glucose 105 H, Calcium 9.3, Total Bilirubin 0.4, AST 23, ALT 24, Alkaline Phosphatase 94, Total Protein 6.9, Albumin 3.9, Globulin 3.0, Albumin/Globulin Ratio 1.3, Lipase 67 04/04/23 10:50 04/04/23 10:50 Orders (Tests/Meds): ED MEDICATIONS Discontinued Medications Generic Name Dose Route Start Last Admin Trade Name Freq PRN Reason Stop Dose Admin Acetaminophen 1,000 mg 04/04/23 10:08 04/04/23 10:27 Acetaminophen 500mg Tab PO 04/04/23 10:09 1,000 mg ONCE ONE Administration Belladonna Alkaloids 60 ml 04/04/23 10:08 04/04/23 10:27 Belladonna Alkaloids 60 Ml Ml PO 04/04/23 10:09 60 ml ONCE ONE Administration Lactated Ringer's 1,000 mls @ 999 mls/hr 04/04/23 10:15 04/04/23 10:27 Lactated Ringer's 1000 Ml Bag IV 04/04/23 11:15 999 mls/hr .Q1H1M INO Administration Ketorolac Tromethamine 15 mg 04/04/23 10:08 04/04/23 10:27 Ketorolac 30mg/Ml Vial IV 04/04/23 10:09 15 mg ONCE ONE Administration Ondansetron HCl 4 mg 04/04/23 10:08 04/04/23 10:27 Ondansetron 4mg/2ml Vial IV 04/04/23 10:09 4 mg ONCE ONE Administration ORDERS Category Date Time Status CBC w/Auto Diff [Complete Blood Count Auto Diff] Stat Lab 04/04/23 10:50 Completed CMP [Comprehensive Metabolic Panel] Stat Lab 04/04/23 10:50 Completed Lipase Stat Lab 04/04/23 10:50 Completed Medical Decision Narrative: 37-year-old female with chronic epigastric abdominal pain presenting today with recurrent and frequent presentation she appears the same as many times that we have seen her in the past. Will not get CT imaging as she has had numerous CT scans in the past which have been nonactionable. Radiation exposure outweighs any benefits in this particular case. Given the fact that this is noncancer chronic abdominal pain will not be prescribing opiates. She has been administered Tylenol Toradol Zofran GI cocktail and will reassess. She is aware of the fact that we would not be prescribing opiates for her chronic abdominal pain that she needs to be following with her primary care doctor and her pain specialist for this in the future. Reassessment 1128 patient remains very stable. Labs unremarkable she was discharged with advised to follow-up with her primary care doctor her specialist and her pain specialist for her chronic pain. Critical Care Critical Care Time Critical Care Time: No
[2023-04-04] MEDS: LACTATED RINGERS 1000ML 1,000 ML 999 ML IV (10:27)
[2023-04-04] MEDS: KETOROLAC 30MG/ML VIAL 15 MG IV (10:27)
[2023-04-04] MEDS: BELLADONNA ALKALOIDS 60 ML ML PO (10:27)
[2023-04-04] MEDS: ONDANSETRON 4MG/2ML VIAL 4 MG IV (10:27)
[2023-04-04] MEDS: ACETAMINOPHEN 500MG TAB 1000 MG PO (10:27)
[2023-04-04 11:07] LABS: Basophils % 0.6 % (0.1-2.0); Eosinophils # 0.1 K/mm3 (0.0-0.4); Eosinophils % 2.8 % (0.1-12.0); Hematocrit 34.4 % (37.0-47.0); Hemoglobin 11.4 g/dL (12.2-16.2); Lymphocytes # 1.1 K/mm3 (0.7-4.5); Lymphocytes % 23.2 % (10-50); Mean Corpuscular HGB Conc 33.3 g/dL (31.8-35.4); Mean Corpuscular Hemoglobin 26.8 pg (27.0-31.2); Mean Corpuscular Volume 80.6 fl (81-99); Mean Platelet Volume 8.2 fl (7.4-10.4); Monocytes # 0.2 K/mm3 (0.1-1.0); Monocytes % 3.6 % (1.7-9.3); Neutrophils # 3.3 K/mm3 (1.8-7.8); Neutrophils % 69.9 % (37.0-80.0); Platelet Count 230 K/mm3 (142-424); Red Blood Count 4.27 M/mm3 (4.20-5.40); Red Cell Distribution Width 17.7 % (11.5-17.5); White Blood Count 4.7 K/mm3 (4.8-10.8)
[2023-04-04 11:09] LABS: Chloride 108 mmol/L (98-107); Sodium 139 mmol/L (136-145)
[2023-04-04 11:11] LABS: Alanine Aminotransferase 24 U/L (12-78); Alkaline Phosphatase 94 U/L (38-126); Aspartate Amino Transferase 23 U/L (14-36); Bilirubin,Total 0.4 mg/dl (0.2-1.3); Blood Urea Nitrogen 10 mg/dl (7-17); Carbon Dioxide 25 mmol/L (22.0-30.0); Creatinine Clearance Estimated 258 mL/min (50-200); Estimated Glomerular Filt Rate 140 ml/min (>60); GFR (African American) 169 ML/MIN (>60); Glucose 105 mg/dl (74-100)
[2023-04-04 11:12] LABS: Albumin Level 3.9 g/dl (3.5-5.0); Albumin/Globulin Ratio 1.3 (1.1-1.8); Calcium 9.3 mg/dl (8.4-10.2); Lipase 67 U/L (23-300); Total Protein,Serum 6.9 g/dl (6.3-8.2)
[2023-04-04 11:34] VITALS: BP 146/84; PULSE 70; RESP 18; TEMP 36.8; O2SAT 100
[2023-04-04 11:37] VITALS: BP 146/86; PULSE 90; RESP 18; TEMP 36.8; O2SAT 98
== END 2023-04-04 11:40 | disposition home or self-care (01) ==
PROVIDERS: Emergency Provider Student in an Organized Health Care Education/Training Program
DX: R10.13 Epigastric pain (principal); G89.29 Other chronic pain
CPT/HCPCS: 80053; 83690; 85025; 96361; 96374; 96375; 99284; J2405

== ENCOUNTER 2023-04-05 20:12 | Emergency (ER) | payer BC, SELFPAY ==
[2023-04-05 20:13] VITALS: BP 153/101; PULSE 80; RESP 18; TEMP 36.8; O2SAT 98; BMI 38.6
--- NOTE | 2023-04-05 20:17 | ED_ITS ---
This patient is a 37-year-old female with past medical history of chronic abdominal pain, has had multiple laboratory investigations, multiple CT imaging investigations which have been unremarkable. She follows with gastroenterology at [facility]. Today she presented with abdominal pain that is her baseline location. She was given multiple nonnarcotic medications in an attempt to see if she would have any improvement including GI cocktail, Tylenol, Toradol, Zofran, Phenergan, Bentyl. Patient is tolerating p.o. at bedside, has normal hemodynamics, is afebrile, no tachycardia, no tachypnea. Patient had laboratory investigation yesterday which was unremarkable. Labs and imaging were considered but will be deferred at this time as there is no indication. Patient has an appointment with pain management with Dr. 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 Patient had partial resolution of her symptoms upon repeat evaluation will be discharged with a course of Phenergan and Bentyl. Patient will be referred to Dr. Bsutamante as she does not have a PCP currently. I was consulted by the AJAY, and we discussed the complexity of the problems being addressed. I approved the treatment and management plan for this patient's care in the emergency department, thus performing a substantive portion of the medical decision making. Brian Langley MD Discharge Plan Disposition Patient Disposition: Home, Self-Care Condition: Good Prescriptions Prescriptions: New dicyclomine 20 mg tablet 20 mg PO QID PRN (Reason: abdominal pain) Qty: 20 0RF promethazine 25 mg tablet 25 mg PO Q6H PRN (Reason: nausea and vomiting) Qty: 20 0RF No Action olanzapine 7.5 mg tablet 7.5 mg PO HS 30 Days Qty: 30 2RF lorazepam 2 mg tablet 2 mg PO BID PRN (Reason: anxiety and panic attacks) 30 Days Qty: 60 0RF oxycodone 10 mg tablet 10 mg PO QID PRN (Reason: chronic pancreatitis pain) 30 Days Qty: 120 0RF pregabalin [Lyrica] 300 mg capsule 300 mg PO BID 30 Days Qty: 60 1RF cholecalciferol (vitamin D3) 125 mcg (5,000 unit) capsule 125 mcg PO DAILY 30 Days Qty: 30 0RF duloxetine 60 mg capsule,delayed release(DR/EC) 60 mg PO DAILY 30 Days Qty: 30 0RF Creon 6,000-19,000 -30,000 unit capsule,delayed release(DR/EC) 1 cap PO DAILY 30 Days Qty: 30 0RF promethazine 25 mg suppository 25 mg [place] Q6H PRN (Reason: nausea and vomiting) Qty: 12 0RF promethazine 25 mg tablet 25 mg PO Q6H PRN (Reason: nausea and vomiting) Qty: 20 0RF Referrals Follow up/Referrals: Jarett Bustamante DO [Staff Physician] - See instructions Provider,Referral, [Primary Care Provider] - See instructions Activity Restrictions/Add. Instructions Additional Instructions/Restrictions: Please keep appointment with Dr. Castellon that you already have scheduled. Please keep follow-up appointments with gastroenterology at the [facility]. Please try to establish care with a primary care provider will be of great benefit navigating the healthcare system with you. We have given you referral instructions to Dr. Bustamante locally. Please call in the morning and make an appointment. Clinical Impressions Clinical Impression: Chronic abdominal pain Instructions Patient Instructions: DI for Acute Abdominal Pain Discharge ED Provider: Brian Langley General Adult HPI <DANIA Ibarra - Last Filed: 04/05/23 22:37> General Chief complaint: Abdominal Pain Stated complaint: abdominal pain , vomiting Time Seen by Provider: 04/05/23 20:16 History of Present Illness HPI narrative: Patient is a 37-year-old female very well-known to the ER who presents today with recurrence of her chronic abdominal pain. Patient was just seen yesterday and given nonopiate interventions including Zofran NSAIDs IV fluids antiemetics. Patient reports that she felt good enough to discharge however returns today with her similar complaints of epigastric [place] pain. She denies chest pain fever chills, vomiting or diarrhea but does endorse nausea. Laboratory investigations yesterday were nonactionable including a minimally elevated lipase. Patient does have a pain management appointment the of this month. Patient reports last EGD was last month at the [facility] by gastroenterology Related Data Previous Rx's Medication Instructions Recorded olanzapine 7.5 mg tablet 7.5 mg PO HS 30 days #30 tabs 12/10/22 promethazine 25 mg rectal 25 mg [place] Q6H PRN nausea and 01/31/23 suppository vomiting #12 ea lorazepam 2 mg tablet 2 mg PO BID PRN anxiety and panic 02/05/23 attacks 30 days #60 tabs oxycodone 10 mg tablet 10 mg PO QID PRN chronic 02/05/23 pancreatitis pain 30 days #120 tabs pregabalin 300 mg capsule (Lyrica) 300 mg PO BID pain 30 days #60 caps 02/05/23 promethazine 25 mg tablet 25 mg PO Q6H PRN nausea and 02/17/23 vomiting #20 tabs cholecalciferol (vitamin D3) 125 125 mcg PO DAILY vitamin d 03/13/23 mcg (5,000 unit) capsule deficiency 30 days #30 caps duloxetine 60 mg capsule,delayed 60 mg PO DAILY 30 days #30 caps 03/13/23 release [id number] 1 cap PO DAILY stomach issues 30 03/13/23 6,000-19,000-30,000 unit days #30 caps capsule,delayed rel (Creon) dicyclomine 20 mg tablet 20 mg PO QID PRN abdominal pain 04/05/23 #20 tabs promethazine 25 mg tablet 25 mg PO Q6H PRN nausea and 04/05/23 vomiting #20 tabs Allergies Allergy/AdvReac Type Severity Reaction Status Date / Time droperidol AdvReac Intermediate jaw go Verified 04/01/23 15:03 sideways [facility] <DANIA Ibarra - Last Filed: 04/05/23 22:37> [facility] Disclaimer: The information contained in this section may have been updated after the patient was seen, as this information can be updated by other users. Medical History Abdominal pain Acute lower GI bleeding Acute pancreatitis Alcohol consumption binge drinking Anxiety Depressed Epigastric pain Gallbladder disease Gastroenteritis History of fracture of hand History of gastroesophageal reflux (GERD) Impetigo Left upper quadrant pain Nausea vomiting and diarrhea Osteoarthritis Overactive bladder Patient left without being seen Rupture of cyst of right ovary Sinusitis Thrush Surgical History History of cholecystectomy History of colonoscopy Hx of dilation and curettage Hx of endoscopic retrograde cholangiopancreatography Hx of esophagogastroduodenoscopy Family History Other Family history of acute congestive heart failure Family history of hyperlipidemia Family history of hypertension Social History Smoking Status: Current every day smoker tobacco type: cigarettes packs per day: 1 years smoked: 20 second hand exposure: No alcohol intake: former substance use type: former substance user and marijuana current occupational status: unemployed Travel in the last 8 weeks: None household members: significant other, family and children housing: house marital status: single number of children: 3 education level: high school caffeine: No special jeanette needs: No agree to transfusion: No do you feel safe at home: Yes victim of physical abuse: No victim of emotional abuse: No victim of sexual abuse: No would you like helpful sources: No <DANIA Ibarra - Last Filed: 04/05/23 22:37> ROS Obtained: Yes Systems reviewed as appropriate & no additional complaints except as documented Physical Exam <DANIA Ibarra - Last Filed: 04/05/23 22:37> Narrative Physical exam: Patient is a well-nourished well-developed morbidly obese 37-year-old female who otherwise in no acute distress General General appearance: alert and in no apparent distress Head Head exam: atraumatic and normal inspection Eye Eye exam: Present normal appearance, PERRL and EOMI Chest Chest inspection: Present normal inspection and symmetric chest wall rise Respiratory Respiratory exam: Present normal lung sounds bilaterally; Absent accessory muscle use Cardiovascular Cardiovascular exam: Present regular rate, normal rhythm, normal heart sounds, +S1 and +S2 Abdominal Exam Abdominal exam: Present soft, normal bowel sounds and other (Obese); Absent tenderness, guarding or rebound Extremities Exam Extremities exam: Present normal inspection and full ROM Neurological Exam Neurological exam: Present alert, oriented X3 and CN II-XII intact Psychiatric Psychiatric exam: Present other (Tearful and anxious but awake and cooperative) Skin Skin exam: Present warm, dry and normal color Medical Decision Making <DANIA Ibrara - Last Filed: 04/05/23 22:37> [facility] Inquiry Pt receiving controlled substance: No Vital Signs: 04/05/23 20:13 04/05/23 21:00 04/05/23 21:45 Temperature 98.3 F Temperature Source Oral Pulse Rate 64 77 Pulse Rate [Left] 80 Respiratory Rate 18 Blood Pressure 164/112 H 151/103 H Blood Pressure [Right Arm] 153/101 H Blood Pressure Mean [Right Arm] 118 Blood Pressure Source [Right Arm] Automatic Cuff Blood Pressure Position [Right Arm] Sitting 02 Sat by Pulse Oximetry 98 93 L 95 Oxygen Delivery Method Room Air Lab Data Lab results reviewed: Yes I reviewed the patient's lab results. Orders (Tests/Meds): ED MEDICATIONS Discontinued Medications Generic Name Dose Route Start Last Admin Trade Name Karen PRN Reason Stop Dose Admin Acetaminophen 1,000 mg 04/05/23 20:34 04/05/23 20:50 Acetaminophen 500mg Tab PO 04/05/23 20:35 1,000 mg ONCE ONE Administration Belladonna Alkaloids 60 ml 04/05/23 20:34 04/05/23 20:50 Belladonna Alkaloids 60 Ml Ml PO 04/05/23 20:35 60 ml ONCE ONE Administration Dicyclomine HCl 10 mg 04/05/23 21:52 04/05/23 22:00 Dicyclomine 10mg Capsule PO 04/05/23 21:53 10 mg ONCE ONE Administration Ketorolac Tromethamine 30 mg 04/05/23 20:34 04/05/23 20:51 Ketorolac 30mg/Ml Vial IM 04/05/23 20:35 30 mg ONCE ONE Administration Ondansetron HCl 4 mg 04/05/23 20:38 04/05/23 20:48 Ondansetron 4mg Odt SL 04/05/23 20:39 4 mg ONCE ONE Administration Promethazine HCl 25 mg 04/05/23 21:52 04/05/23 22:00 Promethazine 25mg Tablet PO 04/05/23 21:53 25 mg ONCE ONE Administration Medical Decision Narrative: In summary patient is a 7-year-old female who presents to the emergency department for evaluation of chronic abdominal pain. Patient is hemodynamically stable upon arrival, and afebrile. Physical exam is not consistent with acute pancreatitis or other etiology and is consistent with her normal presentation of chronic abdominal pain. Repeat imaging is not indicated and is likely unrevealing given the chronic nature and that is noncancerous abdominal pain. Additionally because it is noncancerous abdominal pain opiate intervention is indeed not indicated. I considered and contemplated laboratory investigations however given the nonactionable findings from yesterday's lab results, with today have not likely changed in any significant way. The patient was placed in observation status at 2049. Medical necessity for observational status is chronic pain requiring multiple doses of medications. The patient was offered Phenergan and Bentyl patient accepted. Reassessment at 2230 patient reports improvement of her abdominal pain with administration of Bentyl and Phenergan. Will write a prescription for both. Given this patient was discharged home with instructions to keep her appointment with Dr. Castellon and establish care with a PCP. <Brian Langley MD - Last Filed: 04/05/23 22:37> Vital Signs: 04/05/23 20:13 04/05/23 21:00 04/05/23 21:45 Temperature 98.3 F Temperature Source Oral Pulse Rate 64 77 Pulse Rate [Left] 80 Respiratory Rate 18 Blood Pressure 164/112 H 151/103 H Blood Pressure [Right Arm] 153/101 H Blood Pressure Mean [Right Arm] 118 Blood Pressure Source [Right Arm] Automatic Cuff Blood Pressure Position [Right Arm] Sitting 02 Sat by Pulse Oximetry 98 93 L 95 Oxygen Delivery Method Room Air Orders (Tests/Meds): ED MEDICATIONS Discontinued Medications Generic Name Dose Route Start Last Admin Trade Name Freq PRN Reason Stop Dose Admin Acetaminophen 1,000 mg 04/05/23 20:34 04/05/23 20:50 Acetaminophen 500mg Tab PO 04/05/23 20:35 1,000 mg ONCE ONE Administration Belladonna Alkaloids 60 ml 04/05/23 20:34 04/05/23 20:50 Belladonna Alkaloids 60 Ml Ml PO 04/05/23 20:35 60 ml ONCE ONE Administration Dicyclomine HCl 10 mg 04/05/23 21:52 04/05/23 22:00 Dicyclomine 10mg Capsule PO 04/05/23 21:53 10 mg ONCE ONE Administration Ketorolac Tromethamine 30 mg 04/05/23 20:34 04/05/23 20:51 Ketorolac 30mg/Ml Vial IM 04/05/23 20:35 30 mg ONCE ONE Administration Ondansetron HCl 4 mg 04/05/23 20:38 04/05/23 20:48 Ondansetron 4mg Odt SL 04/05/23 20:39 4 mg ONCE ONE Administration Promethazine HCl 25 mg 04/05/23 21:52 04/05/23 22:00 Promethazine 25mg Tablet PO 04/05/23 21:53 25 mg ONCE ONE Administration Medical Decision Narrative: In summary patient is a 37-year-old female who presents to the emergency department for evaluation of chronic abdominal pain. Patient is hemodynamically stable upon arrival, and afebrile. Physical exam is not consistent with acute pancreatitis or other etiology and is consistent with her normal presentation of chronic abdominal pain. Repeat imaging is not indicated and is likely unrevealing given the chronic nature and that is noncancerous abdominal pain. Additionally because it is noncancerous abdominal pain opiate intervention is indeed not indicated. I considered and contemplated laboratory investigations however given the nonactionable findings from yesterday's lab results, with today have not likely changed in any significant way. The patient was placed in observation status at 2049. Medical necessity for observational status is chronic pain requiring multiple doses of medications. The patient was offered Phenergan and Bentyl patient accepted. Reassessment at 2230 patient reports improvement of her abdominal pain with administration of Bentyl and Phenergan. Will write a prescription for both. Given this patient was discharged home with instructions to keep her appointment with Dr. Castellon and establish care with a PCP. Critical Care <DANIA Ibarra - Last Filed: 04/05/23 22:37> Critical Care Time Critical Care Time: No
[2023-04-05] MEDS: ONDANSETRON 4MG ODT 4 MG SL (20:48)
[2023-04-05] MEDS: ACETAMINOPHEN 500MG TAB 1000 MG PO (20:50)
[2023-04-05] MEDS: BELLADONNA ALKALOIDS 60 ML ML PO (20:50)
[2023-04-05] MEDS: KETOROLAC 30MG/ML VIAL 30 MG IM (20:51)
[2023-04-05 21:00] VITALS: BP 164/112; PULSE 64; O2SAT 93
[2023-04-05 21:45] VITALS: BP 151/103; PULSE 77; O2SAT 95
[2023-04-05] MEDS: PROMETHAZINE 25MG TABLET 25 MG PO (22:00)
[2023-04-05] MEDS: DICYCLOMINE 10MG CAPSULE 10 MG PO (22:00)
--- NOTE | 2023-04-05 22:13 | PC.NURSE ---
pt to bathroom
[2023-04-05 22:38] VITALS: BP 139/101; PULSE 79; RESP 15; TEMP 36.7; O2SAT 98
== END 2023-04-05 22:40 | disposition home or self-care (01) ==
PROVIDERS: Emergency Provider Emergency Medicine
DX: R10.13 Epigastric pain (principal); G89.29 Other chronic pain; F17.210 Nicotine dependence, cigarettes, uncomplicated
CPT/HCPCS: 96372; 99285

== ENCOUNTER 2023-06-06 13:51 | Emergency (ER) | payer BC, SELFPAY ==
[2023-06-06 14:04] VITALS: BP 139/95; PULSE 88; RESP 18; TEMP 36.7; O2SAT 97; BMI 38.2
--- NOTE | 2023-06-06 14:04 | US_ITS ---
PROCEDURE INFORMATION: Exam: US First Trimester, Transabdominal and US , Transvaginal Exam date and time: 06/06/2023 2:59 PM Age: 37 years old Clinical indication: Abdominal pain and pelvic pain; Other: Mid abdomen; Additional info: , abd cramping LABS AND CLINICAL REPORTS: Last menstrual period start date: 04/11/2023 Gestational age (Established): 8 w 0 d Estimated due date (Established): 01/16/2024 TECHNIQUE: Imaging protocol: Real-time transabdominal obstetrical ultrasound of the maternal pelvis and a first trimester , less than 14 weeks 0 days, with image documentation. Transvaginal imaging was used for better evaluation of the fetus, adnexa, and/or cervix. COMPARISON: CT ABDOMEN PELVIS W CON 03/01/2023 5:20 AM FINDINGS: Gestation: Intrauterine . Yolk sac measures 4.6 mm.. [place]-rump length measures 4.44 mm. EGA (CRL) is 6 w 1 d Embryonic/ heart rate: 116 bpm Extra-embryonic membranes/Placenta: Small subchorionic hemorrhage measures 7 x 2 mm Amniotic fluid: Amniotic fluid and extra-amniotic fluid is normal for gestational age. BIOMETRY: Gestational age (AUA): 6 w 2 d Estimated due date (AUA): 01/28/2024 [place]-Rump length (CRL): 4.44 mm. EGA (CRL) is 6 w 1 d MATERNAL: Uterus: Unremarkable. Cervix: Unremarkable. Right ovary/adnexa: Right ovary measures 2.87 cm x 2.66 cm x 2.31 cm. Right ovarian volume is 9.23 mL. Left ovary/adnexa: Left ovary measures 3.29 cm x 1.63 cm x 2.91 cm. Left ovarian volume is 8.17 mL. Intraperitoneal space: No intraperitoneal free fluid. IMPRESSION: Compensate sonographic age 6 weeks 2 days Heart rate 116 bpm
[2023-06-06 14:16] LABS: Microscopic, Urine URINE MICROSCOPIC (MICROSCOPIC)
[2023-06-06 14:17] LABS: Appearance,Urine CLEAR (Clear); Blood, Urine Negative (Negative); Color,Urine YELLOW (Yellow); Glucose,Urine (UA) Negative (Negative); Ketones,Urine TRACE (Negative); Leukocyte Esterase,Urine Negative (Negative); Nitrate,Urine Negative (Negative); PH,Urine 6.5 (5.0-8.5); Protein,Urine TRACE (Negative); Specific Gravity, Urine 1.025 (1.005-1.030)
--- NOTE | 2023-06-06 14:20 | ED_ITS ---
Discharge Plan Disposition Patient Disposition: Home, Self-Care Chief Complaint: Nausea/Vomiting/Diarrhea Prescriptions Prescriptions: No Action olanzapine 7.5 mg tablet 7.5 mg PO HS 30 Days Qty: 30 2RF lorazepam 2 mg tablet 2 mg PO BID PRN (Reason: anxiety and panic attacks) 30 Days Qty: 60 0RF oxycodone 10 mg tablet 10 mg PO QID PRN (Reason: chronic pancreatitis pain) 30 Days Qty: 120 0RF pregabalin [Lyrica] 300 mg capsule 300 mg PO BID 30 Days Qty: 60 1RF cholecalciferol (vitamin D3) 125 mcg (5,000 unit) capsule 125 mcg PO DAILY 30 Days Qty: 30 0RF duloxetine 60 mg capsule,delayed release(DR/EC) 60 mg PO DAILY 30 Days Qty: 30 0RF Creon 6,000-19,000 -30,000 unit capsule,delayed release(DR/EC) 1 cap PO DAILY 30 Days Qty: 30 0RF promethazine 25 mg suppository 25 mg WA Q6H PRN (Reason: nausea and vomiting) Qty: 12 0RF promethazine 25 mg tablet 25 mg PO Q6H PRN (Reason: nausea and vomiting) Qty: 20 0RF dicyclomine 20 mg tablet 20 mg PO QID PRN (Reason: abdominal pain) Qty: 20 0RF promethazine 25 mg tablet 25 mg PO Q6H PRN (Reason: nausea and vomiting) Qty: 20 0RF Referrals Follow up/Referrals: Mora Smith APRN [Primary Care Provider] - See instructions Marybeth Bustamante DO [Staff Physician] - See instructions Activity Restrictions/Add. Instructions Additional Instructions/Restrictions: At this time it was felt you are safe to be discharged home. If new or worsening symptoms please do not hesitate to return the emergency department. Please take antibiotics as prescribed and call and schedule appoint with Dr. Bustamante early next week for continued evaluation. Clinical Impressions Clinical Impression: , Asymptomatic bacteriuria Instructions Patient Instructions: DI for Diarrhea and Traveler's Diarrhea -- Adult, DI for Diarrhea and Traveler's Diarrhea -- Child, DI for Nausea -- Adult, DI for Nausea -- Child Discharge ED Provider: Brian Langley General Adult HPI <Bacilio Laguerre MD - Last Filed: 06/06/23 15:21> General Chief complaint: Nausea/Vomiting/Diarrhea Stated complaint: stomach pain, back pain, vomitting Time Seen by Provider: 06/06/23 13:56 Mode of Arrival: Ambulatory Source of Information: Patient Limitations: No Limitations Description of Symptoms (Recalled from ER Triage Doc. by RN): took home test. which is positive. nausea and vomiting History of Present Illness HPI narrative: 37-year-old female no relevant medical history presenting with . Patient states that she is , does not know when her last menstrual period is, does not know anything about , does not have AGENT BROKER she is following with. Is not taking vitamin. States that she has had vomiting every day, took a test 3 days prior to this visit and it was positive. Intermittent lower abdominal cramping, has history of miscarriage. Shows up for further evaluation. No blood nerve, diarrhea, constipation, fevers, chills, urinary symptoms, abnormal vaginal discharge or bleeding, or any other concerns. Please note that above description of symptoms, in this electronic medical record under categorization of recalled from ER triage doctor by RN are reflective of an initial nursing assessment, however, is not reflective of my full history and physical exam that was personally taken and clarified. Consequentially, this preceding description of symptoms, which may include the patient's categorized chief complaint in the EMR, do not reflect my personal clinical impression, and the ultimate description of history of present illness and patient stated complaints should be deferred to this section of the note. Unless stated otherwise or congruent with this section of the note, additional signs, symptoms, or incongruence should be interpreted as inaccurate with my clinical impression. Related Data Previous Rx's Medication Instructions Recorded olanzapine 7.5 mg tablet 7.5 mg PO HS 30 days #30 tabs 12/10/22 promethazine 25 mg rectal 25 mg WA Q6H PRN nausea and 01/31/23 suppository vomiting #12 ea lorazepam 2 mg tablet 2 mg PO BID PRN anxiety and panic 02/05/23 attacks 30 days #60 tabs oxycodone 10 mg tablet 10 mg PO QID PRN chronic 02/05/23 pancreatitis pain 30 days #120 tabs pregabalin 300 mg capsule (Lyrica) 300 mg PO BID pain 30 days #60 caps 02/05/23 promethazine 25 mg tablet 25 mg PO Q6H PRN nausea and 02/17/23 vomiting #20 tabs cholecalciferol (vitamin D3) 125 125 mcg PO DAILY vitamin d 03/13/23 mcg (5,000 unit) capsule deficiency 30 days #30 caps duloxetine 60 mg capsule,delayed 60 mg PO DAILY 30 days #30 caps 03/13/23 release [id number]-[id number] 1 cap PO DAILY stomach issues 30 03/13/23 6,000-19,000-30,000 unit days #30 caps capsule,delayed rel (Creon) dicyclomine 20 mg tablet 20 mg PO QID PRN abdominal pain 04/05/23 #20 tabs promethazine 25 mg tablet 25 mg PO Q6H PRN nausea and 04/05/23 vomiting #20 tabs Allergies Allergy/AdvReac Type Severity Reaction Status Date / Time droperidol AdvReac Intermediate jaw go Verified 04/01/23 15:03 sideways PFS <Bacilio Laguerre MD - Last Filed: 06/06/23 15:21> PFS Disclaimer: The information contained in this section may have been updated after the patient was seen, as this information can be updated by other users. Medical History Abdominal pain Acute lower GI bleeding Acute pancreatitis Alcohol consumption binge drinking Anxiety Depressed Epigastric pain Gallbladder disease Gastroenteritis History of fracture of hand History of gastroesophageal reflux (GERD) Impetigo Left upper quadrant pain Nausea vomiting and diarrhea Osteoarthritis Overactive bladder Patient left without being seen Rupture of cyst of right ovary Sinusitis Thrush Surgical History History of cholecystectomy History of colonoscopy Hx of dilation and curettage Hx of endoscopic retrograde cholangiopancreatography Hx of esophagogastroduodenoscopy Family History Other Family history of acute congestive heart failure Family history of hyperlipidemia Family history of hypertension Social History Smoking Status: Current every day smoker tobacco type: cigarettes packs per day: 1 years smoked: 20 second hand exposure: No alcohol intake: former substance use type: former substance user and marijuana current occupational status: unemployed Travel in the last 8 weeks: None household members: significant other, family and children housing: house marital status: single number of children: 3 education level: high school caffeine: No special jeanette needs: No agree to transfusion: No do you feel safe at home: Yes victim of physical abuse: No victim of emotional abuse: No victim of sexual abuse: No would you like helpful sources: No <Bacilio Laguerre MD - Last Filed: 06/06/23 15:21> ROS Obtained: Yes All systems reviewed & no additional complaints except as documented Physical Exam <Bacilio Laguerre MD - Last Filed: 06/06/23 15:21> General General appearance: alert and in no apparent distress Head Head exam: atraumatic and normocephalic Eye Eye exam: Present normal appearance, PERRL and EOMI ENT ENT exam: Present mucous membranes moist Neck Neck exam: Present normal inspection, full ROM and trachea midline Respiratory Respiratory exam: Absent respiratory distress, wheezes, stridor, accessory muscle use or prolonged expiratory phase Cardiovascular Cardiovascular exam: Present normal rhythm Abdominal Exam Abdominal exam: Present soft; Absent distention, tenderness, guarding, rebound or rigidity Extremities Exam Extremities exam: Absent edema Neurological Exam Neurological exam: Present alert, oriented X3, CN II-XII intact and normal gait; Absent motor sensory deficit Skin Skin exam: Present warm and dry; Absent diaphoresis or erythema Medical Decision Making <Bacilio Laguerre MD - Last Filed: 06/06/23 15:21> Medical Records Medical records reviewed: Yes I reviewed the patient's medical records. Ramses Inquiry Pt receiving controlled substance: No Ramses was queried for this patient: No Vital Signs: 06/06/23 14:04 Temperature 98.1 F Temperature Source Oral Pulse Rate [Right Radial] 88 Respiratory Rate 18 Blood Pressure [Right Arm] 139/95 H Blood Pressure Mean [Right Arm] 109 02 Sat by Pulse Oximetry 97 Oxygen Delivery Method Room Air Lab Data Lab Results 06/06/23 14:08: Urine Color Yellow, Urine Appearance Clear, Urine pH 6.5, Ur Specific [place] 1.025, Urine Protein Trace, Urine Glucose (UA) Negative, Urine Ketones Trace, Urine Blood Negative, Urine Nitrate Negative, Urine Bilirubin 1+ A, Urine Urobilinogen 1.0, Ur Leukocyte Esterase Negative, Urine RBC Occasional, Urine WBC 3-5, Ur Squamous Epith Cells 10-20, Urine Bacteria 1+, Urine Mucus 3+ 06/06/23 15:00: WBC 7.1, RBC 4.67, Hgb 12.9, Hct 40.1, MCV 85.8, MCH 27.6, MCHC 32.1, RDW 16.8, Plt Count 242, MPV 7.7, Neut % (Auto) 70.8, Lymph % (Auto) 22.4, [place] % (Auto) 4.5, Eos % (Auto) 1.0, Baso % (Auto) 1.3, Neut # (Auto) 5.0, Lymph # (Auto) 1.6, [place] # (Auto) 0.3, Eos # (Auto) 0.1, Baso # (Auto) 0.1, Sodium 132 L, Potassium 3.5, Chloride 104, Carbon Dioxide 23, Anion Gap 8.5, BUN 7, C reatinine 0.40 L, Estimated Creat Clear 320 H, Estimated GFR 181, Est GFR ( Amer) 219, Glucose 106 H, Calcium 9.4, Total Bilirubin 0.5, AST 30, ALT 37, Alkaline Phosphatase 83, Total Protein 6.7, Albumin 4.0, Globulin 2.7, Albumin/Globulin Ratio 1.5, HCG, Quant [id number] H 06/06/23 15:00 06/06/23 15:00 Orders (Tests/Meds): ED MEDICATIONS Discontinued Medications Generic Name Dose Route Start Last Admin Trade Name Freq PRN Reason Stop Dose Admin Lactated Ringer's 1,000 mls @ 999 mls/hr 06/06/23 14:04 06/06/23 14:21 Lactated Ringer's 1000 Ml Bag IV 06/06/23 15:04 999 mls/hr .Q1H1M ONE Administration Ondansetron HCl 4 mg 06/06/23 14:04 06/06/23 14:21 Ondansetron 4mg/2ml Vial IV 06/06/23 14:05 4 mg ONCE ONE Administration Multivit/Folic Acid/Iron 1 each 06/06/23 14:05 06/06/23 14:52 Multivitamin W/Iron PO 06/06/23 14:06 1 each ONCE ONE Administration ORDERS Category Date Time Status US transvaginal Stat Exams 06/06/23 14:04 Completed CBC [Complete Blood Count Auto Diff] Stat Lab 06/06/23 15:00 Completed CMP [Comprehensive Metabolic Panel] Stat Lab 06/06/23 15:00 Completed HCG,Quantitative Stat Lab 06/06/23 15:00 Completed UA [Urinalysis and Microscopic] Stat Lab 06/06/23 14:08 Completed Medical Decision Narrative: 37-year-old female no relevant medical history presenting with . Patient states that she is , does not know when her last menstrual period is, does not know anything about , does not have AGENT BROKER she is following with. Is not taking vitamin. States that she has had vomiting every day, took a test 3 days prior to this visit and it was positive. Intermittent lower abdominal cramping, history of miscarriage, shows up for further evaluation. No blood nerve, diarrhea, constipation, fevers, chills, urinary symptoms, abnormal vaginal discharge or bleeding, or any other concerns. History obtained with patient. Patient's exam benign. No abdominal tenderness. Patient given Zofran and vitamin. Prior to labs and imaging, care handed off to oncoming physician. <Brian Langley MD - Last Filed: 06/06/23 16:46> Vital Signs: 06/06/23 14:04 Temperature 98.1 F Temperature Source Oral Pulse Rate [Right Radial] 88 Respiratory Rate 18 Blood Pressure [Right Arm] 139/95 H Blood Pressure Mean [Right Arm] 109 02 Sat by Pulse Oximetry 97 Oxygen Delivery Method Room Air Lab Data Lab Results 06/06/23 14:08: Urine Color Yellow, Urine Appearance Clear, Urine pH 6.5, Ur Specific [place] 1.025, Urine Protein Trace, Urine Glucose (UA) Negative, Urine Ketones Trace, Urine Blood Negative, Urine Nitrate Negative, Urine Bilirubin 1+ A, Urine Urobilinogen 1.0, Ur Leukocyte Esterase Negative, Urine RBC Occasional, Urine WBC 3-5, Ur Squamous Epith Cells 10-20, Urine Bacteria 1+, Urine Mucus 3+ 06/06/23 15:00: WBC 7.1, RBC 4.67, Hgb 12.9, Hct 40.1, MCV 85.8, MCH 27.6, MCHC 32.1, RDW 16.8, Plt Count 242, MPV 7.7, Neut % (Auto) 70.8, Lymph % (Auto) 22.4, [place] % (Auto) 4.5, Eos % (Auto) 1.0, Baso % (Auto) 1.3, Neut # (Auto) 5.0, Lymph # (Auto) 1.6, [place] # (Auto) 0.3, Eos # (Auto) 0.1, Baso # (Auto) 0.1, Sodium 132 L, Potassium 3.5, Chloride 104, Carbon Dioxide 23, Anion Gap 8.5, BUN 7, C reatinine 0.40 L, Estimated Creat Clear 320 H, Estimated GFR 181, Est GFR ( Amer) 219, Glucose 106 H, Calcium 9.4, Total Bilirubin 0.5, AST 30, ALT 37, Alkaline Phosphatase 83, Total Protein 6.7, Albumin 4.0, Globulin 2.7, Albumin/Globulin Ratio 1.5, HCG, Quant [id number] H Orders (Tests/Meds): ED MEDICATIONS Discontinued Medications Generic Name Dose Route Start Last Admin Trade Name Freq PRN Reason Stop Dose Admin Lactated Ringer's 1,000 mls @ 999 mls/hr 06/06/23 14:04 06/06/23 14:21 Lactated Ringer's 1000 Ml Bag IV 06/06/23 15:04 999 mls/hr .Q1H1M ONE Administration Ondansetron HCl 4 mg 06/06/23 14:04 06/06/23 14:21 Ondansetron 4mg/2ml Vial IV 06/06/23 14:05 4 mg ONCE ONE Administration Multivit/Folic Acid/Iron 1 each 06/06/23 14:05 06/06/23 14:52 Multivitamin W/Iron PO 06/06/23 14:06 1 each ONCE ONE Administration ORDERS Category Date Time Status US transvaginal Stat Exams 06/06/23 14:04 Completed CBC [Complete Blood Count Auto Diff] Stat Lab 06/06/23 15:00 Completed CMP [Comprehensive Metabolic Panel] Stat Lab 06/06/23 15:00 Completed HCG,Quantitative Stat Lab 06/06/23 15:00 Completed UA [Urinalysis and Microscopic] Stat Lab 06/06/23 14:08 Completed Medical Decision Narrative: 37-year-old female no relevant medical history presenting with . Patient states that she is , does not know when her last menstrual period is, does not know anything about , does not have AGENT BROKER she is following with. Is not taking vitamin. States that she has had vomiting every day, took a test 3 days prior to this visit and it was positive. Intermittent lower abdominal cramping, history of miscarriage, shows up for further evaluation. No blood nerve, diarrhea, constipation, fevers, chills, urinary symptoms, abnormal vaginal discharge or bleeding, or any other concerns. History obtained with patient. Patient's exam benign. No abdominal tenderness. Patient given Zofran and vitamin. Prior to labs and imaging, care handed off to oncoming physician. Brian Langley: Upon assumption of care patient was hemodynamically stable. Workup reviewed by me, hematologic labs are remarkable for hCG quant [id number], urinalysis interpreted by me, asymptomatic bacteriuria although contaminated will be treated with Macrobid given . No vaginal bleeding to warrant type and screen or RhoGAM. Transvaginal ultrasound remarkable for intrauterine EGA 6 weeks and 2 days, heart rate 116. Upon repeat evaluation patient was well-appearing, discussion as to patient discontinuing her Ativan and Lyrica was had, patient would likely benefit from long-term control of her anxiety and establishing care with OB. Patient will be referred to Dr. Bustamante and was given return precautions. Critical Care <Bacilio Laguerre MD - Last Filed: 06/06/23 15:21> Critical Care Time Critical Care Time: No
[2023-06-06] MEDS: LACTATED RINGERS 1000ML 1,000 ML 999 ML IV (14:21)
[2023-06-06] MEDS: ONDANSETRON 4MG/2ML VIAL 4 MG IV (14:21)
[2023-06-06 14:25] LABS: Bilirubin,Urine 1+ (Negative)
[2023-06-06 14:33] LABS: Bacteria,Urine 1+ /lpf; Mucus,Urine 3+ /lpf; RBC,Urine Occasional #/hpf (0-3)
[2023-06-06] MEDS: PRENATAL MULTIVITAMIN W/IRON 1 EACH PO (14:52)
[2023-06-06 15:15] LABS: Chloride 104 mmol/L (98-107); Potassium 3.5 mmoL/L (3.5-5.1); Sodium 132 mmol/L (136-145)
[2023-06-06 15:18] LABS: Alanine Aminotransferase 37 U/L (12-78); Albumin/Globulin Ratio 1.5 (1.1-1.8); Alkaline Phosphatase 83 U/L (38-126); Anion Gap 8.5 mEq/L (5-15); Aspartate Amino Transferase 30 U/L (14-36); Bilirubin,Total 0.5 mg/dl (0.2-1.3); Blood Urea Nitrogen 7 mg/dl (7-17); Carbon Dioxide 23 mmol/L (22.0-30.0); Creatinine Clearance Estimated 320 mL/min (50-200); Estimated Glomerular Filt Rate 181 ml/min (>60); GFR (African American) 219 ML/MIN (>60); Globulin 2.7 g/dL (1.3-3.2); Total Protein,Serum 6.7 g/dl (6.3-8.2)
[2023-06-06 15:19] LABS: Calcium 9.4 mg/dl (8.4-10.2); Glucose 106 mg/dl (74-100)
--- NOTE | 2023-06-06 15:47 | PC.NURSE ---
pt arrived back to room from ultrasound
[2023-06-06 16:01] LABS: HCG,Quantitative 29614 mIU/ml (0-5.42)
[2023-06-06 16:19] LABS: Basophils # 0.1 K/mm3 (0-0.2); Basophils % 1.3 % (0.1-2.0); Eosinophils # 0.1 K/mm3 (0.0-0.4); Hematocrit 40.1 % (37.0-47.0); Hemoglobin 12.9 g/dL (12.2-16.2); Lymphocytes # 1.6 K/mm3 (0.7-4.5); Lymphocytes % 22.4 % (10-50); Mean Corpuscular HGB Conc 32.1 g/dL (31.8-35.4); Mean Corpuscular Hemoglobin 27.6 pg (27.0-31.2); Mean Corpuscular Volume 85.8 fl (81-99); Mean Platelet Volume 7.7 fl (7.4-10.4); Monocytes # 0.3 K/mm3 (0.1-1.0); Monocytes % 4.5 % (1.7-9.3); Neutrophils % 70.8 % (37.0-80.0); Platelet Count 242 K/mm3 (142-424); Red Blood Count 4.67 M/mm3 (4.20-5.40); Red Cell Distribution Width 16.8 % (11.5-17.5); White Blood Count 7.1 K/mm3 (4.8-10.8)
[2023-06-06 16:48] VITALS: BP 152/95; PULSE 86; RESP 18; TEMP 36.7; O2SAT 97
== END 2023-06-06 16:56 | disposition home or self-care (01) ==
PROVIDERS: Emergency Medicine; Emergency Provider Emergency Medicine; PCP Nurse Practitioner Family
DX: O26.891 Other specified pregnancy related conditions, first trimester (principal); R11.2 Nausea with vomiting, unspecified; E87.1 Hypo-osmolality and hyponatremia; R10.819 Abdominal tenderness, unspecified site; Z3A.01 Less than 8 weeks gestation of pregnancy
CPT/HCPCS: 76830; 80053; 81001; 84702; 85025; 96361; 96374; 99284; J2405

== ENCOUNTER 2023-07-13 09:15 | Outpatient (CLI) | payer BC, SELFPAY ==
[2023-07-14 08:32] LABS: Progesterone 14.3 ng/mL (.)
== END 2023-07-13 23:59 | disposition home or self-care (01) ==
LOC: LAB 09:15
PROVIDERS: PCP Nurse Practitioner Family; Visit Provider Obstetrics & Gynecology
DX: N92.6 Irregular menstruation, unspecified (principal)
CPT/HCPCS: 36415; 84144

== ENCOUNTER 2023-07-13 09:31 | Emergency (ER) | payer BC, SELFPAY ==
[2023-07-13 09:32] VITALS: BP 130/85; PULSE 90; RESP 17; TEMP 36.9; O2SAT 98; BMI 38.2
--- NOTE | 2023-07-13 09:56 | US_ITS ---
PROCEDURE INFORMATION: Exam: US , Transvaginal Exam date and time: 07/13/2023 9:53 AM Age: 37 years old Clinical indication: complicated by abdominal or pelvic pain; Left lower quadrant; First trimester (<14 weeks 0 days); Gestational age or lmp: 11 weeks; ; Additional info: demise? 10 wks, abd pain TECHNIQUE: Imaging protocol: Real-time transvaginal obstetrical ultrasound of the maternal pelvis with image documentation. Transvaginal imaging was used for better evaluation of the fetus, adnexa, and/or cervix. COMPARISON: US TRANSVAGINAL 06/06/2023 2:59 PM FINDINGS: Gestation: Single intrauterine gestation. Yolk sac measures 8.2 mm. heart rate: No cardiac activity demonstrated. BIOMETRY: Gestational age (AUA): 11 w 1 d Estimated due date (AUA): 01/31/2024 [place]-rump length (CRL): 42.28 mm. EGA (CRL) is 11 w 1 d MATERNAL: Right ovary/adnexa: Right ovary measures 3.17 cm x 2.56 cm x 2.63 cm. Right ovarian volume is 11.18 mL. Left ovary/adnexa: Left ovary measures 3 cm x 2.23 cm x 1.47 cm. Left ovarian volume is 5.15 mL. IMPRESSION: 1. Single intrauterine gestation. Eleven weeks 1 day (AUA) [place]: 01/31/2024 2. No cardiac activity demonstrated.
--- NOTE | 2023-07-13 09:59 | ED_ITS ---
Discharge Plan Disposition Patient Disposition: Home, Self-Care Prescriptions Prescriptions: No Action olanzapine 7.5 mg tablet 7.5 mg PO HS 30 Days Qty: 30 2RF lorazepam 2 mg tablet 2 mg PO BID PRN (Reason: anxiety and panic attacks) 30 Days Qty: 60 0RF oxycodone 10 mg tablet 10 mg PO QID PRN (Reason: chronic pancreatitis pain) 30 Days Qty: 120 0RF pregabalin [Lyrica] 300 mg capsule 300 mg PO BID 30 Days Qty: 60 1RF cholecalciferol (vitamin D3) 125 mcg (5,000 unit) capsule 125 mcg PO DAILY 30 Days Qty: 30 0RF duloxetine 60 mg capsule,delayed release(DR/EC) 60 mg PO DAILY 30 Days Qty: 30 0RF Creon 6,000-19,000 -30,000 unit capsule,delayed release(DR/EC) 1 cap PO DAILY 30 Days Qty: 30 0RF pyrethrins-piperonyl butoxide 0.33-4 % shampoo 1 applic topical ONCE Qty: 236 1RF Rx Instructions: Apply to completely wet infested area, leave on for 10 minutes, then wash with large amount of warm water. Do not exceed 2 consecutive applications w ithin 24 hours. Repeat treatment in 1 week. nitrofurantoin monohyd/m-cryst [Macrobid] 100 mg capsule 100 mg PO BID 5 Days Qty: 10 0RF Rx Instructions: must administer with a meal/food promethazine 25 mg suppository 25 mg OH Q6H PRN (Reason: nausea and vomiting) Qty: 12 0RF promethazine 25 mg tablet 25 mg PO Q6H PRN (Reason: nausea and vomiting) Qty: 20 0RF dicyclomine 20 mg tablet 20 mg PO QID PRN (Reason: abdominal pain) Qty: 20 0RF promethazine 25 mg tablet 25 mg PO Q6H PRN (Reason: nausea and vomiting) Qty: 20 0RF Referrals Follow up/Referrals: Mora Smith APRN [Primary Care Provider] - See instructions Clinical Impressions Clinical Impression: demise before 20 weeks with retention of fetus Instructions Patient Instructions: DI for Acute Abdominal Pain Discharge ED Provider: Ash Squires General Adult HPI General Chief complaint: Abdominal Pain Stated complaint: severe abd pain, 12 weeks antepartum Time Seen by Provider: 07/13/23 09:45 History of Present Illness HPI narrative: Patient is a A1 who is 12 weeks gestational age by for trimester ultrasound presents today with mild abdominal discomfort. This started yesterday. She has a history of chronic abdominal pain in the past had been on opiates and anxiety medications but has been off all of those. Has been doing really well lately but is very anxious that there is some department the baby. No vaginal bleeding or vaginal discharge or loss of fluid abdominal pain is very mild had some crampy abdominal discomfort yesterday. Related Data Previous Rx's Medication Instructions Recorded olanzapine 7.5 mg tablet 7.5 mg PO HS 30 days #30 tabs 12/10/22 promethazine 25 mg rectal 25 mg OH Q6H PRN nausea and 01/31/23 suppository vomiting #12 ea lorazepam 2 mg tablet 2 mg PO BID PRN anxiety and panic 02/05/23 attacks 30 days #60 tabs oxycodone 10 mg tablet 10 mg PO QID PRN chronic 02/05/23 pancreatitis pain 30 days #120 tabs pregabalin 300 mg capsule (Lyrica) 300 mg PO BID pain 30 days #60 caps 02/05/23 promethazine 25 mg tablet 25 mg PO Q6H PRN nausea and 02/17/23 vomiting #20 tabs cholecalciferol (vitamin D3) 125 125 mcg PO DAILY vitamin d 03/13/23 mcg (5,000 unit) capsule deficiency 30 days #30 caps duloxetine 60 mg capsule,delayed 60 mg PO DAILY 30 days #30 caps 03/13/23 release oqigkn-wrojtqer-tkocjeo 1 cap PO DAILY stomach issues 30 03/13/23 6,000-19,000-30,000 unit days #30 caps capsule,delayed rel (Creon) dicyclomine 20 mg tablet 20 mg PO QID PRN abdominal pain 04/05/23 #20 tabs promethazine 25 mg tablet 25 mg PO Q6H PRN nausea and 04/05/23 vomiting #20 tabs nitrofurantoin 100 mg PO BID UTI 5 days #10 caps 06/06/23 monohydrate/macrocrystals 100 mg capsule (Macrobid) pyrethrins 0.33 %-piperonyl 1 applic topical ONCE #236 mL 06/23/23 butoxide 4 % shampoo Allergies Allergy/AdvReac Type Severity Reaction Status Date / Time droperidol AdvReac Intermediate jaw go Verified 04/01/23 15:03 sideways PFSH PFS Disclaimer: The information contained in this section may have been updated after the patient was seen, as this information can be updated by other users. Medical History Abdominal pain Acute lower GI bleeding Acute pancreatitis Alcohol consumption binge drinking Anxiety Depressed Epigastric pain Gallbladder disease Gastroenteritis History of fracture of hand History of gastroesophageal reflux (GERD) Impetigo Left upper quadrant pain Nausea vomiting and diarrhea Osteoarthritis Overactive bladder Patient left without being seen Rupture of cyst of right ovary Sinusitis Thrush Surgical History History of cholecystectomy History of colonoscopy Hx of dilation and curettage Hx of endoscopic retrograde cholangiopancreatography Hx of esophagogastroduodenoscopy Family History Other Family history of acute congestive heart failure Family history of hyperlipidemia Family history of hypertension Social History Smoking Status: Current every day smoker tobacco type: cigarettes packs per day: 1 years smoked: 20 second hand exposure: No alcohol intake: former substance use type: former substance user and marijuana current occupational status: unemployed Travel in the last 8 weeks: None household members: significant other, family and children housing: house marital status: single number of children: 3 education level: high school caffeine: No special jeanette needs: No agree to transfusion: No do you feel safe at home: Yes victim of physical abuse: No victim of emotional abuse: No victim of sexual abuse: No would you like helpful sources: No ROS Obtained: Yes All systems reviewed & no additional complaints except as documented Physical Exam General General appearance: alert Respiratory Respiratory exam: Present normal lung sounds bilaterally Cardiovascular Cardiovascular exam: Present regular rate Neurological Exam Neurological exam: Present alert and oriented X3 Medical Decision Making Ramses Inquiry Pt receiving controlled substance: No Vital Signs: 07/13/23 09:32 07/13/23 10:00 Temperature 98.4 F Temperature Source Oral Pulse Rate 85 Pulse Rate [Left Radial] 90 Respiratory Rate 17 Blood Pressure 130/97 H Blood Pressure [Right Arm] 130/85 Blood Pressure Mean 106 Blood Pressure Mean [Right Arm] 100 Blood Pressure Source [Right Arm] Automatic Cuff Blood Pressure Position [Right Arm] Sitting 02 Sat by Pulse Oximetry 98 98 Oxygen Delivery Method Room Air Room Air Orders (Tests/Meds): ED MEDICATIONS Generic Name Dose Route Start Last Admin Trade Name Karen PRN Reason Stop Dose Admin Lorazepam 1 mg 07/13/23 10:57 Lorazepam 1mg Tablet PO 07/13/23 10:58 ONCE ONE ORDERS Category Date Time Status POCUS Point of Care (ER Only) Stat Exams 07/13/23 09:46 Completed Beta HCG, Quant [HCG,Quantitative] Stat Lab 07/13/23 09:56 Ordered CBC w/Auto Diff [Complete Blood Count Auto Diff] Stat Lab 07/13/23 09:56 Ordered CMP [Comprehensive Metabolic Panel] Stat Lab 07/13/23 09:56 Ordered US OB transvaginal Stat Ultrasound 07/13/23 09:56 Taken Medical Decision Narrative: Patient is a 37-year-old as stated above at 12 weeks gestational age presenting with abdominal discomfort. Limited bedside transabdominal ultrasound does not demonstrate any heartbeat or activity this is concerning for intrauterine demise. I will get a formal transvaginal ultrasound to confirm this. She had an appointment with Dr. Bustamante on Thursday of this week likely will discuss the case with Dr. Bustamante prior to patient's discharge. Assessment 1058 labs pending patient very stable however transvaginal ultrasound confirmed my findings. I spoke with Dr. Marybeth Bustamante who is in clinic and we will set the patient up directly to see her right now in clinic. Patient was appropriately tearful and very anxious and asked for a dose of her home lorazepam and she has been off of this for extended period time she had been on 2 mg of this I will give her 1 mg as an anxiolytic. She was discharged from the department and sent to OB clinic. Procedures Miscellaneous Procedure Procedure Performed: Limited OB ultrasound Indication: Abdominal pain Identified structures: [-Uterus -Left adnexa -Right adnexa -Pouch of Tommie] Findings: Uterus: There is a definitive intrauterine that is consistent with dates however there is no heart rate or activity/movements noted Right adnexa: No free fluid Left adnexa: No free fluid Cul de sac: No free fluid Impression: IUP consistent with dates without heart beat or movement concerning for demise Images were saved to permanent archive The study was technically adequate [facility] Transabdominal: [id number] This study was performed by me, and I personally interpreted all images/videos. Based on my clinical judgement, these images were adequate and did necessitate further imaging. Critical Care Critical Care Time Critical Care Time: No
[2023-07-13 10:00] VITALS: BP 130/97; PULSE 85; O2SAT 98
--- NOTE | 2023-07-13 10:02 | PC.NURSE ---
called rad to let them know about vaginal ultrasound ordered
--- NOTE | 2023-07-13 10:53 | PC.NURSE ---
on phone with dr. blackwell
[2023-07-13] MEDS: LORazepam 1MG TABLET 1 MG PO (11:04)
[2023-07-13 11:07] VITALS: BP 126/81; PULSE 88; RESP 18; TEMP 36.8; O2SAT 98
== END 2023-07-13 11:05 | disposition home or self-care (01) ==
PROVIDERS: Emergency Provider Student in an Organized Health Care Education/Training Program; PCP Nurse Practitioner Family
DX: O36.4XX1 Maternal care for intrauterine death, fetus 1 (principal); R10.819 Abdominal tenderness, unspecified site; Z3A.12 12 weeks gestation of pregnancy
CPT/HCPCS: 76817; 99284

== ENCOUNTER 2023-07-14 14:33 | Observation (INO) | payer BC, SELFPAY ==
[2023-07-13 14:26] VITALS: BMI 35.7
[2023-07-14] VITALS (42 sets, daily range): BP systolic 95–149; BP diastolic 54–101; PULSE 82–160; RESP 12–20; TEMP 36.4–37.1; O2SAT 96–100
--- NOTE | 2023-07-14 | US_ITS ---
PROCEDURE: US PELVIC CLINICAL INDICATION: missed ab COMPARISON: US US OB TRANSVAGINAL from 07/13/2023 FINDINGS: Transvaginal sonographic images of the uterus were obtained. The ultrasound was done during a suction curettage for missed . There were clot seen within the uterus and blood but the tissue has been removed. A Medina balloon was placed within the uterine cavity and it filled the entire cavity. There are no retained products. IMPRESSION: 1. Complete evacuation of the uterine contents. 2. A Medina balloon is in the fundus of the uterus and fills the entire uterine cavity. 3. No retained tissue is seen around the Medina balloon. Dictated by: Ramon Boo MD 07/14/2023 16:04 Ramon Boo MD in OV 07/14/2023 16:04
[2023-07-14 11:14] LABS: Basophils % 0.5 % (0.1-2.0); Eosinophils % 0.7 % (0.1-12.0); Hematocrit 36.1 % (37.0-47.0); Hemoglobin 11.9 g/dL (12.2-16.2); Mean Corpuscular HGB Conc 32.9 g/dL (31.8-35.4); Mean Corpuscular Hemoglobin 28.7 pg (27.0-31.2); Mean Corpuscular Volume 87.2 fl (81-99); Mean Platelet Volume 8.1 fl (7.4-10.4); Monocytes # 0.3 K/mm3 (0.1-1.0); Neutrophils # 3.9 K/mm3 (1.8-7.8); Neutrophils % 62.8 % (37.0-80.0); Platelet Count 244 K/mm3 (142-424); Red Blood Count 4.14 M/mm3 (4.20-5.40); Red Cell Distribution Width 17.4 % (11.5-17.5); White Blood Count 6.2 K/mm3 (4.8-10.8)
[2023-07-14 11:16] LABS: Alanine Aminotransferase 24 U/L (12-78); Albumin Level 4.2 g/dl (3.5-5.0); Albumin/Globulin Ratio 1.6 (1.1-1.8); Alkaline Phosphatase 60 U/L (38-126); Anion Gap 17.7 mEq/L (5-15); Aspartate Amino Transferase 38 U/L (14-36); Bilirubin,Total 0.7 mg/dl (0.2-1.3); Blood Urea Nitrogen 5 mg/dl (7-17); Calcium 9.2 mg/dl (8.4-10.2); Carbon Dioxide 20 mmol/L (22.0-30.0); Chloride 104 mmol/L (98-107); Creatinine Clearance Estimated 399 mL/min (50-200); Estimated Glomerular Filt Rate 252 ml/min (>60); GFR (African American) 305 ML/MIN (>60); Globulin 2.7 g/dL (1.3-3.2); Glucose 92 mg/dl (74-100); Potassium 4.7 mmoL/L (3.5-5.1); Sodium 137 mmol/L (136-145); Total Protein,Serum 6.9 g/dl (6.3-8.2)
[2023-07-14] MEDS: DOXYCYCLINE HYCL 100 MG TABLET 200 MG PO (11:16)
--- NOTE | 2023-07-14 11:44 | P.PNANES_ITS ---
[facility] Disclaimer: The information contained in this section may have been updated after the patient was seen, as this information can be updated by other users. Medical History Gastroenteritis Acute lower GI bleeding Depressed Anxiety History of fracture of hand compartment sydrome Overactive bladder Osteoarthritis Gallbladder disease History of gastroesophageal reflux (GERD) Patient left without being seen Sinusitis Impetigo Abdominal pain Nausea vomiting and diarrhea Epigastric pain Left upper quadrant pain Thrush Rupture of cyst of right ovary Alcohol consumption binge drinking Acute pancreatitis Surgical History Hx of esophagogastroduodenoscopy Hx of endoscopic retrograde cholangiopancreatography Hx of dilation and curettage History of colonoscopy History of cholecystectomy Family History Other Family history of acute congestive heart failure Family history of hyperlipidemia Family history of hypertension Social History Smoking Status: Current every day smoker tobacco type: cigarettes packs per day: 1 years smoked: 20 second hand exposure: No alcohol intake: former substance use type: former substance user and marijuana current occupational status: unemployed Travel in the last 8 weeks: None household members: significant other, family and children housing: house marital status: single number of children: 3 education level: high school caffeine: No special jeanette needs: No agree to transfusion: No do you feel safe at home: Yes victim of physical abuse: No victim of emotional abuse: No victim of sexual abuse: No would you like helpful sources: No [facility] Anesthesia Checklist Patient Identification Patient Identification: Verbal (Name & ) Structural Data Admitted From: Home Planned Operative Procedure/s: d/c Consent for Planned Operative Procedure(s) Verified: Yes NPO Status Verified Time NPO: 00:00 Additional verifications Anesthesia Reactions: No Hx Blood Transfusions: No Blood Transfusion Reaction: No Airway Assessment Mallampati Score:: Class II C-Spine Mobility Assessed: Yes TMJ Mobility Assessed: Yes Dentition: Good Dentition Neurological Assessment Level of Consciousness: Awake, Alert and Appropriate Anesthesia Plan Anesthesia Risk discussed: Yes Anesthesia Plan: Verified ASA Class: II Anesthesia Type: General
--- NOTE | 2023-07-14 12:35 | EXP.ANES.I ---
[facility] Anesthesia Record Part I Anesthesia Record I Intake, IV Amount: 2,000 Hydration: Adequate Estimated blood loss (mL): 2,500 Urine output (mL): 0 Blood Pressure: 127/82 SaO2: 100 Pulse Rate: 135 Airway Patency: Patent Respiratory Rate: 12 Temperature: 97.5 F Patient is:: Awake and Stable Stable to PACU at:: 12:30
[2023-07-14] MEDS: miSOPROStoL 200 MCG TABLET 1000 MCG (12:38)
--- NOTE | 2023-07-14 12:45 | P.OP_ITS ---
Date of procedure: 07/14/23 Pre-op Diagnosis:: 1. 11 weeks spontaneous 2. Desires surgical management 3. Rh+ Post-op Diagnosis:: 1. 11 weeks spontaneous 2. Desires surgical management 3. Rh+ Procedure performed:: Dilation and suction curettage Surgeon:: Marybeth Bustamante DO STRAIGHT EDGER:: Jim Cox Anesthesia: GETA Estimated blood loss (mL): 2,500 Clinical Note:: Complications: intraoperative hemorrhage UOP: 200mL Operative findings:: Normal-appearing external genitalia. Closed cervical os without bleeding. Operative note:: Lila Mcnally is a 37yo presenting today 11 week SAB surgical management. CRL was 42.28 mm and no cardiac activity was noted. Yolk sac was 8.2 mm. Patient denies any vaginal bleeding but states that she had abdominal cramping which was similar to what she experienced with her last miscarriage. Expectant, medical, and surgical management were explained to the patient and she elected to undergo surgical management. She was consented for suction D&C. Risk, benefits, and alternatives were reviewed. Risk including but not limited to uterine perforation, bleeding, and infection were discussed. Medications: Doxycycline 200 mg, 30 units of IV Pitocin, 1000 mcg of rectal Cytotec, and 1 g of IV TXA The patient was taken back to the operating room where anesthesia was administered. She was placed in the dorsolithotomy position with yellowfin stirrups and sterilely prepped and draped with chlorhexidine in the usual fashion. In and out catheter was used to drain her bladder. Weighted speculum and a right angle retractor was used to visualize the cervix. A single-tooth tenaculum applied to the anterior lip cervix. Queen dilators were used to dilate the cervix to accommodate a #12 rigid suction curette. The suction curette was inserted to the fundus, hooked to suction, and twisted in a clockwise fashion until the curette was removed. Products noted in the tubing system. This process was repeated following the removal of the suction curette each time there was copious amounts of blood flowing briskly from cervical os. Sharp 3 used to curette the outer vicente of the endometrium and copious bleeding was continued to be observed. Suction curette was used to [place]. Pitocin 30 units IV was ordered. At 1000 mcg of rectal Cytotec was placed. There continued to be significant bleeding from the cervical os. Ultrasound was requested and there appeared to be retained products of conception. With ultrasound guidance a sharp banjo curette was used to curette the outer vicente of the endometrium and products of conception were removed. The bleeding was improved however it was still increased. A Medina catheter was placed with 30 mL of normal saline to tamponade the endometrial vicente. Medina catheter was placed after ultrasound showed a thin endometrial lining. 1 g of TXA was ordered. The patient will be observed for 2 hours with a catheter in place and then follow-up ultrasound will be completed. Repeat H&H will be ordered. The single-tooth tenaculum was removed and hemostasis was noted. The speculum was removed and this completed the procedure. The patient tolerated the procedure well and all instrument and sponge counts were correct x2. The patient was awakened from general anesthesia and taken to the recovery room. Of note the patient was mildly tachycardiac but normotensive. The patient will be observed closely in the PACU Condition: stable Disposition: PACU Specimens:: Products of conception Complications:: intraoperative hemorrhage
[2023-07-14 12:55] LABS: Hematocrit 29.2 % (37.0-47.0)
[2023-07-14 12:56] LABS: Hemoglobin 9.7 g/dL (12.2-16.2)
[2023-07-14] MEDS: OXYCODONE 10MG W/APAP 325MG TABLET 1 EACH (13:13)
[2023-07-14] MEDS: TRANEXAMIC ACID 1,000 MG in 0.9 % SODIUM CHLORIDE 250 ML 500 MG IV (13:14)
[2023-07-14] MEDS: ONDANSETRON 4MG/2ML VIAL 4 MG IV ×2 (13:18→20:09)
--- NOTE | 2023-07-14 13:27 | SUR.OPER ---
1208- ultrasound at BS per Dr. Bustamante verbal order. 1215- Per plan to keep pt in PACU for two hours. Follow up ultrasound at bedside at this time with . 1215- Medina catheter inserted into the uterus by with 30ML NS put into the balloon. orders to keep this in place and monitor for the next two hours.
--- NOTE | 2023-07-14 14:15 | US_ITS ---
PROCEDURE: US PELVIC CLINICAL INDICATION: Heavy bleeding during a suction curettage 2 hours postprocedure examination. COMPARISON: US US PELVIC from 07/14/2023 FINDINGS: Anteverted uterus measuring 11 cm x 6.7 cm x 6.4 cm. A Medina balloon is seen within the uterine cavity. Adjacent to the Medina balloon there is still a small area of either blood clot or tissue. It is difficult to discern whether there are retained products. This area measures 3.0 cm x 2.4 cm. IMPRESSION: 1. Anteverted uterus normal in shape and bulky in size. 2. A Medina balloon is seen within the uterine cavity. 3. There is an area adjacent to the Medina balloon measuring 3.0 cm x 2.4 cm that could be either blood clot or retained products. 4. There is trace fluid in the cul-de-sac. 5. Dr. Bustamante was notified of the results. Dictated by: Ramon Boo MD 07/14/2023 16:58 Ramon Boo MD in OV 07/14/2023 16:58
--- NOTE | 2023-07-14 14:47 | SUR.PHASEI ---
1230- patient arrived to PACU via stretcher accompanied by Bertin Lagos RN, Rhina Porter RN, and Ash Cox CRNA post-surgery. Patient sitting up in the stretcher crying. Report received from Rhina Porter RN. Patient placed on cardiac telemetry. HR elevated in tos359's upon arrival, otherwise vital signs remain stable and within normal range. STAT H/H ordered at this time. 1235- Lab at BS for H/H draw. 1305- Patient stated 8/10 pain in lower abdomen and described it as stabbing and sharp. No pain medication ordered and on APR. Dr Florence Bustamante called and gave verbal order for 10mg PO oxycodone once. Verbal order repeated and correct. Verbal order wrote on physician order sheet and faxed to pharmacy. 1311- Dr Florence Bustamante as BS to talk to patient about surgery and discussed the operative complication of hemorrhaging. MD told patient she would be back at 1415 with ultrasound to do another BS abdominal US. 1312- Pain medication administered per APR and verbal orders given by Dr Florence Bustamante. 1314- Pharmacy as BS with TXA. TXA scanned and administered per MAR at this time. 1318- Patient complaining of nausea at this time. Zofran administered per MAR at this time. 1342- Pain reassessment at a 4/10, only mild cramping present at this time. 1414- US tech at BS setting up, Dr Florence Bustamante's office called to let her know they are at the BS. 1420- Dr Florence Bustamante at BS, abdominal US beginning. 1428- BS abdominal US done. Dr Florence Bustamante admitting patient into OB in room 279 for 24 hour observation at this time. 1435- Called OB to give report. Report given to Ele Dave RN. 1440- Patient taken via stretcher to OB room 279 by Bertin Lagos RN and Rhina Porter RN. For all VS during PACU, see PACU flowsheet.
[2023-07-14] MEDS: IBUPROFEN 400 MG TABLET 800 MG PO (17:01)
[2023-07-14] MEDS: LACTATED RINGERS 1000ML 1,000 ML 125 ML IV (17:02)
[2023-07-14] MEDS: HYDROCODONE/APAP 5/325 MG TABLET 1 TAB PO (17:02)
--- NOTE | 2023-07-14 17:21 | PC.NURSE ---
Patient has done well my shift-scant bleeding noted in blair bag-. lungs cta and bowels active x4. No edema noted. Scuds BLE. Patient reports cramping pain 8/10. No abdominal distension noted or abd tenderness. IV infusing per order. Patient does appear pale- lips pale as well. Call light within reach and she v.u
[2023-07-14] MEDS: ACETAMINOPHEN 500MG TAB 1000 MG PO (18:30)
--- NOTE | 2023-07-14 19:03 | PC.NURSE ---
Able to void a small amount- bright red bleeding noted in blair bag- emptied at this time. 50ml total this shift. Patient reports pain is better.
--- NOTE | 2023-07-14 19:12 | PC.NURSE ---
Report given to Florence bautista RN
--- NOTE | 2023-07-14 21:14 | PC.NURSE ---
patient continues to complain of intense abdominal cramping which she rates a 7/10 on pain scale, despite ambulating in room and voiding, notified, new orders received for vistaril 50mg q8h prn, d/c norco, oxycodone 5mg q4h prn
[2023-07-14] MEDS: hydrOXYzine pamoate 25MG CAPSULE 50 MG PO (21:28)
[2023-07-14] MEDS: PROMETHAZINE HCL 25MG/ML 1ML VIAL 12.5 MG IV (21:28)
[2023-07-14] MEDS: OXYCODONE 5MG IMMEDIATE RELEASE TABLET 5 MG PO (22:11)
[2023-07-15] VITALS (21 sets, daily range): BP systolic 87–114; BP diastolic 44–65; PULSE 74–99; RESP 16–20; TEMP 36.7–37.2; O2SAT 98–100
[2023-07-15] MEDS: LACTATED RINGERS 1000ML 1,000 ML 125 ML IV (00:12)
[2023-07-15] MEDS: ACETAMINOPHEN 500MG TAB 1000 MG PO ×2 (03:25→13:26)
[2023-07-15] MEDS: OXYCODONE 5MG IMMEDIATE RELEASE TABLET 5 MG PO ×3 (03:25→13:49)
--- NOTE | 2023-07-15 05:40 | PC.NURSE ---
patient has rested off and on throughout shift, c/o cramping 8/10 on pain scale at times, relieved by prn pain medication, lungs remain clear, bowel sounds active, blair balloon remains in place in uterus draining scant amounts of bright red blood, abdomen remains tender but soft, tolerating diet, ambulating in room without dizziness or lightheadedness call light within reach no needs at this time
[2023-07-15 07:26] LABS: Anion Gap 11.1 mEq/L (5-15); Blood Urea Nitrogen 10 mg/dl (7-17); Calcium 7.7 mg/dl (8.4-10.2); Carbon Dioxide 19 mmol/L (22.0-30.0); Chloride 107 mmol/L (98-107); Creatinine Clearance Estimated 299 mL/min (50-200); Estimated Glomerular Filt Rate 181 ml/min (>60); GFR (African American) 219 ML/MIN (>60); Glucose 128 mg/dl (74-100); Potassium 4.1 mmoL/L (3.5-5.1); Sodium 133 mmol/L (136-145)
--- NOTE | 2023-07-15 08:00 | PC.NURSE ---
Dr. Bustamante at bedside discussing plan of care with patient. MD removed 30 mL normal saline from intrauterine balloon. Patient tolerated well. New orders received for routine care with [id number] fundal checks for 1 hour then [id number] fundal checks for 1 hour. Will weigh pads to establish QBL. If QBL reaches 250 mL, will notify .
[2023-07-15 08:06] LABS: Basophils % 0.1 % (0.1-2.0); Eosinophils % 0.1 % (0.1-12.0); Lymphocytes # 1.4 K/mm3 (0.7-4.5); Lymphocytes % 11.2 % (10-50); Mean Corpuscular HGB Conc 33.3 g/dL (31.8-35.4); Mean Corpuscular Hemoglobin 29.7 pg (27.0-31.2); Mean Corpuscular Volume 89.4 fl (81-99); Mean Platelet Volume 8.1 fl (7.4-10.4); Monocytes # 0.4 K/mm3 (0.1-1.0); Monocytes % 3.3 % (1.7-9.3); Neutrophils # 10.2 K/mm3 (1.8-7.8); Neutrophils % 85.3 % (37.0-80.0); Platelet Count 192 K/mm3 (142-424); Red Blood Count 2.15 M/mm3 (4.20-5.40)
[2023-07-15] MEDS: hydrOXYzine pamoate 25MG CAPSULE 50 MG PO (08:22)
[2023-07-15] MEDS: IBUPROFEN 400 MG TABLET 800 MG PO (08:22)
--- NOTE | 2023-07-15 08:32 | P.HPDS_ITS ---
General Admission date:: 07/14/23 Discharge date: 07/15/23 *Admission Date: 07/14/23 *Chief complaint: Intraoperative hemorrhage *History of present illness: Lila Mcnally is a 37yo who presented for a suction D&C after an 11-week SAB. She initially presented to me after being seen in the ED. SAB at 11weeks gestation with a corresponding measuring CRL. CRL was 42.28 mm and no cardiac activity was noted. Yolk sac was 8.2 mm. Patient denies any vaginal bleeding but states that she had abdominal cramping which was similar to what she experienced with her last miscarriage. Reports that she last met marijuana approximately 2 weeks ago. Reports that she smokes approximately 5 cigarettes/day. Denies any alcohol use. Patient has a longstanding history of anxiety and depression and is very appropriately upset today. States that hydroxyzine and BuSpar did not work well for her. OB history: -G1 was a normal spontaneous vaginal delivery without complications at term. -G2 was an SAB at 8 weeks which she had a D&C -G3 was a normal spontaneous vaginal delivery of twin infants -G4 is a current and is an SAB at 11 weeks gestation which she desires a D&C Surgical history is significant for cholecystectomy, previous D&C, compartment syndrome surgery of the right wrist/hand, ERCP, EGD, and 2 colonoscopies. Allergies to tramadol which causes a significant increase in her blood pressure, droperidol, and Compazine which both cause dystonia. Current medications include Lyrica and vitamin. In the past she has taken chronic benzodiazepines for anxiety and oxycodone for pain management but states that she was on on either of these medications during this current . Review of her Ramses shows that she filled Lyrica in April, May, and June. She last filled lorazepam (14 tabs, 7-day supply) and oxycodone (8 tabs, 2-day supply) in March. In February she filled an oxycodone 10 mg prescription for 10 tabs (2-day prescription). [facility] Disclaimer: The information contained in this section may have been updated after the patient was seen, as this information can be updated by other users. Medical History Gastroenteritis Acute lower GI bleeding Depressed Anxiety History of fracture of hand compartment sydrome Overactive bladder Osteoarthritis Gallbladder disease History of gastroesophageal reflux (GERD) Patient left without being seen Sinusitis Impetigo Abdominal pain Nausea vomiting and diarrhea Epigastric pain Left upper quadrant pain Thrush Rupture of cyst of right ovary Alcohol consumption binge drinking Acute pancreatitis Surgical History Hx of esophagogastroduodenoscopy Hx of endoscopic retrograde cholangiopancreatography Hx of dilation and curettage History of colonoscopy History of cholecystectomy Family History Other Family history of acute congestive heart failure Family history of hyperlipidemia Family history of hypertension Social History Smoking Status: Current every day smoker tobacco type: cigarettes packs per day: 1 years smoked: 20 second hand exposure: No alcohol intake: former substance use type: former substance user and marijuana current occupational status: unemployed Travel in the last 8 weeks: None household members: significant other, family and children housing: house marital status: single number of children: 3 education level: high school caffeine: No special jeanette needs: No agree to transfusion: No do you feel safe at home: Yes victim of physical abuse: No victim of emotional abuse: No victim of sexual abuse: No would you like helpful sources: No Review of Systems Review of Systems Review of systems (narrative): Review of Systems Constitutional: Denies fever, chills, and sweats Eyes: Denies vision change/ pain Respiratory: Denies cough and shortness of breath Cardiovascular: Denies chest pain and lightheadedness Gastrointestinal: Admits abdominal pain/cramping. Denies nausea, vomiting. Genitourinary: Denies dysuria and incontinence Musculoskeletal: Denies shoulder pain and back pain Neurological: Denies change in speech or headaches Exam Data for Last 24 hours Vital signs and Labs for Last 24 Hours: Temp Pulse Resp BP Pulse Ox O2 Del Method 98.4 F 83 18 109/50 L 100 Room Air 07/15/23 05:37 07/15/23 05:37 07/15/23 05:37 07/15/23 05:37 07/15/23 05:37 07/15/23 05:37 Laboratory Results - last 24 hr 07/14/23 10:20: WBC 6.2, RBC 4.14 L, Hgb 11.9 L, Hct 36.1 L, MCV 87.2, MCH 28.7, MCHC 32.9, RDW 17.4, Plt Count 244, MPV 8.1, Neut % (Auto) 62.8, Lymph % (Auto) 32.0, Hart % (Auto) 4.0, Eos % (Auto) 0.7, Baso % (Auto) 0.5, Neut # (Auto) 3.9, Lymph # (Auto) 2.0, Hart # (Auto) 0.3, Eos # (Auto) 0.0, Baso # (Auto) 0.0, Sodium 137, Potassium 4.7, Chloride 104, Carbon Dioxide 20 L, Anion Gap 17.7 H, BUN 5 L, Creatinine 0.30 L, Estimated Creat Clear 399 H, Estimated GFR 252, Est GFR ( Amer) 305, Glucose 92, Calcium 9.2, Total Bilirubin 0.7, AST 38 H, ALT 24, Alkaline Phosphatase 60, Total Protein 6.9, Albumin 4.2, Globulin 2.7, Albumin/Globulin Ratio 1.6, Blood Type O Positive, Antibody Screen Negative 07/14/23 12:45: Hgb 9.7 L D, Hct 29.2 L 07/15/23 07:01: Sodium 133 L, Potassium 4.1, Chloride 107, Carbon Dioxide 19 L, Anion Gap 11.1, BUN 10 D, Creatinine 0.40 L D, Estimated Creat Clear 299, Estimated GFR 181, Est GFR ( Amer) 219 D, Glucose 128 H D, Calcium 7.7 L I & O for Last 24 hours: Intake & Output 07/12/23 07/13/23 07/14/23 07/15/23 23:59 23:59 23:59 23:59 Intake Total 1999 / 1999 Output Total 300 / 300 200 / 200 Balance 1700 / 1700 -200 / -200 Weight 215 lb Constitutional Constitutional: no acute distress *Routine HEENT Exam Head: Present normocephalic Eye: Present EOMI and PERRL ENT: Present mucous membranes moist *Routine Neck Exam Neck: Present supple; Absent lymphadenopathy *Routine Respiratory Exam Respiratory: Present CTA bilaterally *Routine Cardiovascular Exam Cardiovascular: Present RRR *Routine Abdominal Exam Abdominal: Present soft and normoactive bowel sounds; Absent tenderness *Routine Rectal Exam Rectal:: deferred *Routine Genitalia Exam Genitalia:: deferred *Routine Extremities Exam Extremities: Absent cyanosis, clubbing or edema *Routine Skin Exam Skin: Present warm; Absent rash *Routine Neurological Exam Neurological: Present alert and oriented X3 Meds Home Medications and Allergies Home Medications Medication Instructions Recorded Confirmed Type pregabalin 300 mg capsule (Lyrica) 300 mg PO BID pain 30 days #60 caps 02/05/23 07/14/23 Rx acetaminophen 500 mg tablet 1,000 mg (2 x 500 mg) PO Q6HP PRN 07/15/23 Rx Mild To Moderate Pain (1-6) #30 tabs hydroxyzine pamoate 25 mg capsule 50 mg (2 x 25 mg) PO Q8HP PRN 07/15/23 Rx ANXIETY/SLEEP #60 caps ibuprofen 400 mg tablet 800 mg (2 x 400 mg) PO Q8HP PRN 07/15/23 Rx Mild To Moderate Pain (1-6) #60 tabs oxycodone 5 mg tablet 5 mg PO Q4HP PRN Severe Pain 07/15/23 Rx (7-10) #8 tabs New Prescriptions to Start Prescriptions: oxycodone Robby,Marybeth acetaminophen Robby,Marybeth hydroxyzine pamoate Robby,Marybeth ibuprofen Robby,Marybeth Allergies Allergy/AdvReac Type Severity Reaction Status Date / Time droperidol AdvReac Intermediate jaw go Verified 07/13/23 11:30 sideways prochlorperazine AdvReac Verified 07/14/23 10:10 [From Compazine] tramadol AdvReac Verified 07/14/23 10:10 Hospital Course Hospital Course Hospital Course: Patient was brought in for a suction D&C. During her suction D&C she lost at least 2500 mL of blood. Intraoperatively she received 30 units of IV Pitocin, 1000 mcg of rectal Cytotec, and 1 g of TXA. Postop her vital signs were significant for tachycardia but she was normotensive. The patient has some baseline tachycardia. She was monitored overnight for her bleeding and to monitor her vitals. We were able to get her pain controlled with ibuprofen, acetaminophen, oxycodone, and anxiety medicine: Hydroxyzine. The patient states that this combo worked well for her anxiety and pain/uterine cramping and she desires discharge home with this. Intraoperatively a Medina balloon with 30 mL of saline was placed to tamponade the uterine vicente. This was removed at 8 AM this morning. The patient will be monitored for a minimum of 2 hours to watch her bleeding. She will have fundal rubs every 15 minutes to every 30 minutes in the second hour. This morning her hemoglobin dropped to 6.7. The patient was mildly hypotensive this morning. 2 units of packed red blood cells were ordered. She will have a posttransfusion hemoglobin measurement 1 hour after transfusion. If her vitals remained stable and her bleeding is appropriate we will discharge home after the transfusion. She will have a repeat ultrasound on Thursday with a follow-up visit with me on Thursday. Prior to discharge the patient was doing very well. Her QBL was 16. She tole rated the blood products very well. She will have a follow-up ultrasound on Thursday with a visit with me on Thursday. Strict return precautions were reviewed with the patient Results Data Completed and Pending Labs on day of discharge: Labs from last 24 hours 07/15/23 07/14/23 07/14/23 07:01 12:45 10:20 WBC 6.2 RBC 4.14 L Hgb 9.7 L D 11.9 L Hct 29.2 L 36.1 L MCV 87.2 MCH 28.7 MCHC 32.9 RDW 17.4 Plt Count 244 MPV 8.1 Neut % (Auto) 62.8 Lymph % (Auto) 32.0 Hart % (Auto) 4.0 Eos % (Auto) 0.7 Baso % (Auto) 0.5 Neut # (Auto) 3.9 Lymph # (Auto) 2.0 Hart # (Auto) 0.3 Eos # (Auto) 0.0 Baso # (Auto) 0.0 Sodium 133 L 137 Potassium 4.1 4.7 Chloride 107 104 Carbon Dioxide 19 L 20 L Anion Gap 11.1 17.7 H BUN 10 D 5 L Creatinine 0.40 L D 0.30 L Estimated Creat Clear 299 399 H Estimated GFR 181 252 Est GFR ( Amer) 219 D 305 Glucose 128 H D 92 Calcium 7.7 L 9.2 Total Bilirubin 0.7 AST 38 H ALT 24 Alkaline Phosphatase 60 Total Protein 6.9 Albumin 4.2 Globulin 2.7 Albumin/Globulin Ratio 1.6 Blood Type O Positive Antibody Screen Negative DS: Diagnosis Discharge Diagnosis (1) SAB (spontaneous ): Status: Acute Code(s): O03.9 - Complete or unspecified spontaneous without complication (2) Intraoperative hemorrhage: Status: Acute Code(s): T81.89XA - Other complications of procedures, not elsewhere classified, initial encounter Problem details: Doing well Continue to follow vitals Status post 2 units of packed red blood cells Posttransfusion hemoglobin pending Transvaginal ultrasound on Thursday Follow-up with me on Thursday (3) S/P dilation and curettage: Status: Acute Code(s): Z98.890 - Other specified postprocedural states Discharge Plan Disposition Patient Disposition: Home, Self-Care Follow up Plan Follow up with: Marybeth Bustamante DO [Staff Physician] - 1 week Prescriptions/Medication Reconciliation: New acetaminophen 500 mg Tablet 1,000 mg PO Q6HP PRN (Reason: Mild To Moderate Pain (1-6)) Qty: 30 1RF ibuprofen 400 mg Tablet 800 mg PO Q8HP PRN (Reason: Mild To Moderate Pain (1-6)) Qty: 60 2RF oxycodone 5 mg Tablet 5 mg PO Q4HP PRN (Reason: Severe Pain (7-10)) Qty: 8 0RF hydroxyzine pamoate 25 mg Capsule 50 mg PO Q8HP PRN (Reason: ANXIETY/SLEEP) Qty: 60 2RF Continued pregabalin [Lyrica] 300 mg capsule 300 mg PO BID 30 Days Qty: 60 1RF Problem Reconciliation Problems Reviewed?: Yes Patient Discharge Instructions DIET: regular diet Additional Instructions: Repeat Ultrasound ThursdayJuly 20 at 8:30am Providers Primary Care Provider: Mora Smith Admit Provider: Marybeth Bustamante Attending Provider: Marybeth Bustamante
[2023-07-15 08:34] LABS: Hematocrit 19.2 % (37.0-47.0)
[2023-07-15 08:35] LABS: MANUAL DIFFERENTIAL MANUAL DIFFERENTIAL (MANUAL DIFF)
--- NOTE | 2023-07-15 08:35 | PC.NURSE ---
0833 Critical H&H 6.06/11.2 called from filippo in the lab. Pts name and provided for pt identifiers.
[2023-07-15] MEDS: 0.9 % SODIUM CHLORIDE 250 ML 25 ML IV ×2 (09:00→12:25)
--- NOTE | 2023-07-15 09:30 | PC.NURSE ---
Peripads changed at this time. 1 chux weighing 85 grams = 5 mL
[2023-07-15 11:07] LABS: Lymphocytes % 11 % (10-50); Monocytes % 1 % (2-9); Neutrophils % 88 % (42-76); Platelet Estimate Normal; RBC Morphology Normal; Total Cells Counted 100
--- NOTE | 2023-07-15 12:14 | PC.NURSE ---
Peripads changed at this time. 1 chux weighing 91 grams = 11 mL. Total QBL 16 mL
[2023-07-15 12:17] LABS: Hemoglobin 6.4 g/dL (12.2-16.2)
[2023-07-15 15:54] LABS: Hematocrit 24.8 % (37.0-47.0)
--- NOTE | 2023-07-15 16:02 | PC.NURSE ---
Patient reports feeling much better than in the morning. Lung sounds clear bilaterally and throughout. Heart rate auscultated at a normal rhythm. Bowel sounds auscultated in all 4 quadrants. Fundus nonpalpable due to gestation. Small lochia noted. Patient denies nausea, vomiting, dizziness, or lightheadedness. Patient verbalizes readiness for discharge and denies further needs or concerns.
[2023-07-15 16:03] LABS: Hemoglobin 8.3 g/dL (12.2-16.2)
--- NOTE | 2023-07-15 17:57 | PC.NURSE ---
All charting and care completed under my direct supervision
== END 2023-07-15 17:45 | disposition home or self-care (01) ==
LOC: OB 14:33
PROVIDERS: Obstetrics & Gynecology; Admitting Provider Obstetrics & Gynecology; PCP Nurse Practitioner Family; Visit Provider Obstetrics & Gynecology
PROC: (CPT 59812; principal; 2023-07-14 11:00)
DX: O03.6 Delayed or excessive hemorrhage following complete or unspecified spontaneous abortion (principal); F41.9 Anxiety disorder, unspecified; F32.A Depression, unspecified
CPT/HCPCS: 59812; 36415; 76856; 80048; 80053; 85007; 85014; 85018; 85025; 86850; G0378; J2405; P9016

== ENCOUNTER 2023-08-15 17:37 | Emergency (ER) | payer BC, SELFPAY ==
[2023-08-15 17:39] VITALS: BP 163/99; PULSE 116; RESP 19; TEMP 36.7; O2SAT 99; BMI 28.3
[2023-08-15 18:20] VITALS: BP 158/96; PULSE 117; O2SAT 100
[2023-08-15 18:51] VITALS: BP 144/97; PULSE 107; O2SAT 100
[2023-08-15 19:21] LABS: Basophils # 0.1 K/mm3 (0-0.2); Basophils % 0.8 % (0.1-2.0); Eosinophils # 0.1 K/mm3 (0.0-0.4); Eosinophils % 0.7 % (0.1-12.0); Hematocrit 36.4 % (37.0-47.0); Hemoglobin 12.1 g/dL (12.2-16.2); Lymphocytes # 1.9 K/mm3 (0.7-4.5); Lymphocytes % 18.6 % (10-50); Mean Corpuscular HGB Conc 33.2 g/dL (31.8-35.4); Mean Corpuscular Hemoglobin 27.1 pg (27.0-31.2); Mean Corpuscular Volume 81.6 fl (81-99); Mean Platelet Volume 9.2 fl (7.4-10.4); Monocytes # 0.4 K/mm3 (0.1-1.0); Monocytes % 3.9 % (1.7-9.3); Neutrophils # 7.9 K/mm3 (1.8-7.8); Neutrophils % 76.1 % (37.0-80.0); Platelet Count 247 K/mm3 (142-424); Red Blood Count 4.46 M/mm3 (4.20-5.40); Red Cell Distribution Width 16.2 % (11.5-17.5); White Blood Count 10.4 K/mm3 (4.8-10.8)
[2023-08-15 19:24] LABS: Chloride 104 mmol/L (98-107); Sodium 136 mmol/L (136-145)
[2023-08-15 19:26] LABS: Potassium 2.5 mmoL/L (3.5-5.1)
[2023-08-15 19:27] LABS: Alanine Aminotransferase 30 U/L (12-78); Albumin Level 4.6 g/dl (3.5-5.0); Albumin/Globulin Ratio 1.5 (1.1-1.8); Alkaline Phosphatase 118 U/L (38-126); Anion Gap 15.5 mEq/L (5-15); Aspartate Amino Transferase 39 U/L (14-36); Bilirubin,Total 0.6 mg/dl (0.2-1.3); Blood Urea Nitrogen 7 mg/dl (7-17); Carbon Dioxide 19 mmol/L (22.0-30.0); Creatinine Clearance Estimated 79 mL/min (50-200); Estimated Glomerular Filt Rate 51 ml/min (>60); GFR (African American) 62 ML/MIN (>60); Total Protein,Serum 7.6 g/dl (6.3-8.2)
[2023-08-15 19:28] LABS: Calcium 9.5 mg/dl (8.4-10.2); Glucose 139 mg/dl (74-100)
--- NOTE | 2023-08-15 20:17 | XR_ITS ---
PROCEDURE INFORMATION: Exam: XR Chest Exam date and time: 08/15/2023 8:17 PM Age: 37 years old Clinical indication: Cough TECHNIQUE: Imaging protocol: Radiologic exam of the chest. Views: 2 views. COMPARISON: CT ANGIO CHEST PE PROTOCOL 10/01/2022 8:37 PM FINDINGS: Lungs: Unremarkable. No consolidation. Pleural spaces: Unremarkable. No pleural effusion. No pneumothorax. Heart/Mediastinum: Unremarkable. No cardiomegaly. Bones/joints: Unremarkable. IMPRESSION: No acute findings.
[2023-08-15] MEDS: LACTATED RINGERS 1000ML 500 ML 999 ML IV (20:32)
[2023-08-15 20:39] LABS: Magnesium 1.6 mg/dl (1.6-2.3)
[2023-08-15] MEDS: KCl 10mEq/100ml 100 ML 100 MEQ IV (21:54)
[2023-08-15] MEDS: MAGNESIUM SULFATE IN WATER 2 GM/50 ML PIGGYBACK IV (21:54)
[2023-08-15] MEDS: POTASSIUM CHLORIDE 20MEQ TAB 40 MEQ PO (21:54)
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
[2023-08-16 00:19] LABS: Creatinine Clearance Estimated 118 mL/min (50-200); Estimated Glomerular Filt Rate 81 ml/min (>60); GFR (African American) 98 ML/MIN (>60); Potassium 2.9 mmoL/L (3.5-5.1)
[2023-08-16] MEDS: LORazepam 1MG TABLET 1 MG PO (00:37)
[2023-08-16 00:38] VITALS: BP 134/87; PULSE 104; RESP 19; TEMP 36.7; O2SAT 99
== END 2023-08-16 00:39 | disposition home or self-care (01) ==
PROVIDERS: Emergency Provider Emergency Medicine; PCP Nurse Practitioner Family
DX: E87.6 Hypokalemia (principal); R05.9 Cough, unspecified; F15.90 Other stimulant use, unspecified, uncomplicated; R20.2 Paresthesia of skin; F17.210 Nicotine dependence, cigarettes, uncomplicated
CPT/HCPCS: 36415; 71046; 80053; 82565; 83735; 84132; 85025; 96365; 99284; J3475; J3480; J7120

== ENCOUNTER 2023-08-16 05:01 | Emergency (ER) | payer BC, SELFPAY ==
[2023-08-16 05:01] VITALS: BP 177/130; PULSE 127; RESP 20; TEMP 37; O2SAT 100; BMI 38.2
[2023-08-16 05:13] VITALS: PULSE 127
--- NOTE | 2023-08-16 05:16 | XR_ITS ---
PROCEDURE INFORMATION: Exam: XR Chest Exam date and time: 08/16/2023 5:19 AM Age: 37 years old Clinical indication: Shortness of breath; Additional info: Anxiety, SOA TECHNIQUE: Imaging protocol: Radiologic exam of the chest. Views: 1 view. COMPARISON: CR Chest 08/15/2023 8:17 PM FINDINGS: Lungs: Unremarkable. No consolidation. Pleural spaces: Unremarkable. No pleural effusion. No pneumothorax. Heart/Mediastinum: Unremarkable. No cardiomegaly. Bones/joints: Unremarkable. IMPRESSION: No acute findings.
--- NOTE | 2023-08-16 05:16 | HMH.EDGENADL ---
Discharge Plan Disposition Patient Disposition: Home, Self-Care Prescriptions Prescriptions: No Action pregabalin [Lyrica] 300 mg capsule 300 mg PO BID 30 Days Qty: 60 1RF acetaminophen 500 mg Tablet 1,000 mg PO Q6HP PRN (Reason: Mild To Moderate Pain (1-6)) Qty: 30 1RF ibuprofen 400 mg Tablet 800 mg PO Q8HP PRN (Reason: Mild To Moderate Pain (1-6)) Qty: 60 2RF hydroxyzine pamoate 25 mg Capsule 50 mg PO Q8HP PRN (Reason: ANXIETY/SLEEP) Qty: 60 2RF oxycodone 5 mg Tablet 5 mg PO Q4HP PRN (Reason: Severe Pain (7-10)) Qty: 8 0RF Clinical Impressions Clinical Impression: Methamphetamine use, Anxiety Discharge ED Provider: Benny Nolasco General Adult HPI General Chief complaint: Anxiety Stated complaint: Chest pain one lung to the other Time Seen by Provider: 08/16/23 05:04 Mode of Arrival: EMS Source of Information: Patient and EMS Limitations: No Limitations Description of Symptoms (Recalled from ER Triage Doc. by RN): Pt presents to ED via EMS for anxiety. Pt was d/c from this ER approx 5 hours ago. Pt states she feels like air is going from one lung to the other. History of Present Illness HPI narrative: 37-year-old female with history of chronic pancreatitis, chronic opiate drug-seeking behavior, chronic anxiety, presents for anxiety. She reports that she started using methamphetamine for the first time this week. She last used approximately 18 hours ago. She reports that she feels like she is having something crawl from 1 lung to the other, that something is stuck in her throat, and that her heart is racing. She demands medications for anxiety. She was seen here in the ER and discharged approximately 6 hours prior to arrival for cough, chest congestion. Related Data Previous Rx's Medication Instructions Recorded pregabalin 300 mg capsule (Lyrica) 300 mg PO BID pain 30 days #60 caps 02/05/23 acetaminophen 500 mg tablet 1,000 mg (2 x 500 mg) PO Q6HP PRN 07/15/23 Mild To Moderate Pain (1-6) #30 tabs hydroxyzine pamoate 25 mg capsule 50 mg (2 x 25 mg) PO Q8HP PRN 07/15/23 ANXIETY/SLEEP #60 caps ibuprofen 400 mg tablet 800 mg (2 x 400 mg) PO Q8HP PRN 07/15/23 Mild To Moderate Pain (1-6) #60 tabs oxycodone 5 mg tablet 5 mg PO Q4HP PRN Severe Pain 07/15/23 (7-10) #8 tabs Allergies Allergy/AdvReac Type Severity Reaction Status Date / Time droperidol AdvReac Intermediate jaw go Verified 07/13/23 11:30 sideways prochlorperazine AdvReac Verified 07/14/23 10:10 [From Compazine] tramadol AdvReac Verified 07/14/23 10:10 [facility] Disclaimer: The information contained in this section may have been updated after the patient was seen, as this information can be updated by other users. Medical History Gastroenteritis Acute lower GI bleeding Depressed Anxiety History of fracture of hand compartment sydrome Overactive bladder Osteoarthritis Gallbladder disease History of gastroesophageal reflux (GERD) Patient left without being seen Sinusitis Impetigo Abdominal pain Nausea vomiting and diarrhea Epigastric pain Left upper quadrant pain Thrush Rupture of cyst of right ovary Alcohol consumption binge drinking Acute pancreatitis Surgical History Hx of esophagogastroduodenoscopy Hx of endoscopic retrograde cholangiopancreatography Hx of dilation and curettage History of colonoscopy History of cholecystectomy Family History Other Family history of acute congestive heart failure Family history of hyperlipidemia Family history of hypertension Social History Smoking Status: Current every day smoker tobacco type: cigarettes packs per day: 1 years smoked: 20 second hand exposure: No alcohol intake: former substance use type: former substance user and marijuana current occupational status: unemployed Travel in the last 8 weeks: None household members: significant other, family and children housing: house marital status: single number of children: 3 education level: high school caffeine: No special jeanette needs: No agree to transfusion: No do you feel safe at home: Yes victim of physical abuse: No victim of emotional abuse: No victim of sexual abuse: No would you like helpful sources: No ROS Obtained: Yes All systems reviewed & no additional complaints except as documented Physical Exam General General appearance: alert and in no apparent distress Head Head exam: atraumatic and normocephalic Eye Eye exam: Present normal appearance, PERRL and EOMI ENT ENT exam: Present normal oropharynx, mucous membranes dry and normal external ear exam Neck Neck exam: Present normal inspection and full ROM Chest Chest inspection: Present normal inspection and symmetric chest wall rise; Absent tenderness Respiratory Respiratory exam: Present normal lung sounds bilaterally; Absent respiratory distress Cardiovascular Cardiovascular exam: Present normal rhythm and tachycardia Abdominal Exam Abdominal exam: Present soft; Absent distention, tenderness or guarding Extremities Exam Extremities exam: Present normal inspection; Absent edema or joint swelling Back Exam Back exam: Present normal inspection; Absent tenderness Neurological Exam Neurological exam: Present alert and oriented X3; Absent motor sensory deficit Psychiatric Psychiatric exam: Present agitated and anxious Skin Skin exam: Present warm, dry and normal color Lymphatic Lymphatic Findings: no adenopathy Medical Decision Making Medical Records Medical records reviewed: Yes I reviewed the patient's medical records. Ramses Inquiry Pt receiving controlled substance: No Ramses was queried for this patient: No Vital Signs: 08/16/23 05:01 08/16/23 05:13 Temperature 98.6 F Temperature Source Oral Pulse Rate 127 H Pulse Rate [Left] 127 H Respiratory Rate 20 Blood Pressure [Right Arm] 177/130 H Blood Pressure Mean [Right Arm] 145 02 Sat by Pulse Oximetry 100 Oxygen Delivery Method Room Air Lab Data Lab results reviewed: Yes I reviewed the patient's lab results. Orders (Tests/Meds): ORDERS Category Date Time Status CXR --portable [XR chest portable] Stat Exams 08/16/23 05:16 Taken EKG Request [ECG Request] Stat Y 08/16/23 05:16 Ordered ECG Data Tracing #1: I reviewed this ECG and interpreted as documented below: Sinus rhythm, rate of 96, no ST elevation, normal intervals, ECG initial impression date: 08/16/23 ECG initial impression time: 05:25 Medical Decision Narrative: 37-year-old female with history of chronic pancreatitis, chronic opiate drug-seeking behavior, chronic anxiety, presents for anxiety after using meth within the last 24 hours. history was obtained interactive discussion with patient, chart review, EMS. On arrival, patient is afebrile, mildly tachycardic, mildly hypertensive, alert and oriented, complaining of anxiety, moving all extremities spontaneously. Full physical exam performed and significant for dry mouth. She is demanding that we give her drugs for anxiety. Differential includes but is not limited to meth use, anxiety, pneumothorax, dehydration. Chart reviewed, patient was noted to be a bit dehydrated when she was here earlier, with hypokalemia as well. She was given IV rehydration and p.o. and IV potassium at that time and was discharged. Workup initiated including EKG, chest x-ray. She was given water. On re-evaluation, patient had normalization of vital signs, normal pressure, normal heart rate, continues to sat 100% on room air. Imaging independently interpreted by me and significant for clear lungs bilaterally without evidence of pneumothorax or focal opacity. See radiology read for full review of final results. EKG independently interpreted by me and significant for normal sinus rhythm as documented above. Labs were considered, but deemed unnecessary as she was here and evaluated within the last few hours. Given patient history, exam and workup, patient's presentation most likely represents acute meth induced anxiety and drug-seeking behavior. No indication for further evaluation at this time. Patient discharged with normal vital signs. She initially refused to leave but ultimately walked into the lobby. Procedures Risk/Benefits of Procedure(s) Were Explained: Yes Critical Care Critical Care Time Critical Care Time: No
--- NOTE | 2023-08-16 05:21 | ECG_ITS ---
APPROVED REPORT Exam: Resting ECG HR:96 bpm ECG Measurements Heart Rate 96 AXES IL 124 P 37 QRSd 85 QRS 29 QT 351 T 8 QTc 405 Conclusion Sinus rhythm Electronically signed by : KEIKO MILTON, 08/17/2023 15:51:30
[2023-08-16 05:49] VITALS: BP 129/81; PULSE 96; RESP 16; TEMP 37; O2SAT 100
== END 2023-08-16 05:54 | disposition home or self-care (01) ==
PROVIDERS: Emergency Provider Emergency Medicine
DX: F15.988 Other stimulant use, unspecified with other stimulant-induced disorder (principal); F41.9 Anxiety disorder, unspecified; F17.210 Nicotine dependence, cigarettes, uncomplicated
CPT/HCPCS: 71045; 93005; 99283

== ENCOUNTER 2023-08-19 09:05 | Emergency (ER) | payer BC, SELFPAY ==
--- NOTE | 2023-08-19 09:08 | ECG_ITS ---
APPROVED REPORT Exam: Resting ECG HR:93 bpm ECG Measurements Heart Rate 93 AXES FL 117 P 40 QRSd 101 QRS 53 QT 379 T -16 QTc 430 Conclusion SINUS RHYTHM WITH SHORT FL INTERVAL MODERATE ST DEPRESSION [0.05+ mV ST DEPRESSION] ABNORMAL QRS-T ANGLE [QRS-T AXIS DIFFERENCE > 60] ABNORMAL ECG UNCONFIRMED REPORT Electronically signed by : Napoleon Squires, 08/19/2023 15:26:57
--- NOTE | 2023-08-19 09:10 | PC.NURSE ---
DR NG AT BEDSIDE
--- NOTE | 2023-08-19 09:11 | PC.NURSE ---
Dr. Squires at [facility] for pt eval
[2023-08-19 09:12] VITALS: BP 179/92; PULSE 85; RESP 20; TEMP 36.9; O2SAT 100; BMI 38.2
--- NOTE | 2023-08-19 09:17 | XR_ITS ---
FINAL REPORT CLINICAL HISTORY: Shortness of breath COMPARISON: 08/16/2023 FINDINGS: No acute pulmonary density is evident. There is no evidence of effusion or other pleural disease. The mediastinum has a normal appearance. The cardiac silhouette is unremarkable. IMPRESSION: Unremarkable chest exam. Reviewed, Interpreted and Dictated by Dayana Garza MD Transcribed by Mireya Paige Authenticated and [facility]
--- NOTE | 2023-08-19 09:19 | HMH.EDGENADL ---
Discharge Plan Disposition Patient Disposition: Home, Self-Care Prescriptions Prescriptions: No Action pregabalin [Lyrica] 300 mg capsule 300 mg PO BID 30 Days Qty: 60 1RF acetaminophen 500 mg Tablet 1,000 mg PO Q6HP PRN (Reason: Mild To Moderate Pain (1-6)) Qty: 30 1RF ibuprofen 400 mg Tablet 800 mg PO Q8HP PRN (Reason: Mild To Moderate Pain (1-6)) Qty: 60 2RF hydroxyzine pamoate 25 mg Capsule 50 mg PO Q8HP PRN (Reason: ANXIETY/SLEEP) Qty: 60 2RF oxycodone 5 mg Tablet 5 mg PO Q4HP PRN (Reason: Severe Pain (7-10)) Qty: 8 0RF Referrals Follow up/Referrals: Provider,Referral, MD [Referring] - See instructions Activity Restrictions/Add. Instructions Additional Instructions/Restrictions: No evidence of acute cardiopulmonary emergency ongoing please follow-up with primary care doctor regarding your chronic antianxiety medication needs. Clinical Impressions Clinical Impression: Methamphetamine abuse, Anxiety, Atypical chest pain Discharge ED Provider: Ash Squires General Adult HPI General Chief complaint: Chest Pain Stated complaint: cp Time Seen by Provider: 08/19/23 09:07 History of Present Illness HPI narrative: 37-year-old female presents today with chest discomfort and anxiety. She states that since she had her miscarriage about a month ago but since that time she has been very stressed out and she started using meth. She states that since she has been using meth she has had some chest discomfort that she describes as severe anxiety. No exertional symptoms no diaphoresis or shortness of breath. No radiation. No history of coronary disease. She has an appointment tomorrow with her primary care doctor and states that anxiety medicines typically have helped similar symptoms in the past. Related Data Previous Rx's Medication Instructions Recorded pregabalin 300 mg capsule (Lyrica) 300 mg PO BID pain 30 days #60 caps 02/05/23 acetaminophen 500 mg tablet 1,000 mg (2 x 500 mg) PO Q6HP PRN 07/15/23 Mild To Moderate Pain (1-6) #30 tabs hydroxyzine pamoate 25 mg capsule 50 mg (2 x 25 mg) PO Q8HP PRN 07/15/23 ANXIETY/SLEEP #60 caps ibuprofen 400 mg tablet 800 mg (2 x 400 mg) PO Q8HP PRN 07/15/23 Mild To Moderate Pain (1-6) #60 tabs oxycodone 5 mg tablet 5 mg PO Q4HP PRN Severe Pain 07/15/23 (7-10) #8 tabs Allergies Allergy/AdvReac Type Severity Reaction Status Date / Time droperidol AdvReac Intermediate jaw go Verified 07/13/23 11:30 sideways prochlorperazine AdvReac Verified 07/14/23 10:10 [From Compazine] tramadol AdvReac Ver[facility] 07/14/23 10:10 [facility] Disclaimer: The information contained in this section may have been updated after the patient was seen, as this information can be updated by other users. Medical History Gastroenteritis Acute lower GI bleeding Depressed Anxiety History of fracture of hand compartment sydrome Overactive bladder Osteoarthritis Gallbladder disease History of gastroesophageal reflux (GERD) Patient left without being seen Sinusitis Impetigo Abdominal pain Nausea vomiting and diarrhea Epigastric pain Left upper quadrant pain Thrush Rupture of cyst of right ovary Alcohol consumption binge drinking Acute pancreatitis Surgical History Hx of esophagogastroduodenoscopy Hx of endoscopic retrograde cholangiopancreatography Hx of dilation and curettage History of colonoscopy History of cholecystectomy Family History Other Family history of acute congestive heart failure Family history of hyperlipidemia Family history of hypertension Social History Smoking Status: Never smoker years smoked: 20 second hand exposure: No alcohol intake: former substance use type: former substance user and marijuana current occupational status: unemployed Travel in the last 8 weeks: None household members: significant other, family and children housing: house marital status: single number of children: 3 education level: high school caffeine: No special jeanette needs: No agree to transfusion: No do you feel safe at home: Yes victim of physical abuse: No victim of emotional abuse: No victim of sexual abuse: No would you like helpful sources: No ROS Obtained: Yes All systems reviewed & no additional complaints except as documented Physical Exam General General appearance: anxious Respiratory Respiratory exam: Present normal lung sounds bilaterally; Absent respiratory distress Cardiovascular Cardiovascular exam: Present regular rate and normal rhythm Neurological Exam Neurological exam: Present alert and oriented X3 Psychiatric Psychiatric exam: Present anxious Medical Decision Making Ramses Inquiry Pt receiving controlled substance: No Vital Signs: 08/19/23 09:12 08/19/23 09:30 Temperature 98.5 F Temperature Source Oral Pulse Rate 78 Pulse Rate [Left Radial] 85 Respiratory Rate 20 Blood Pressure 155/96 H Blood Pressure [Right Arm] 179/92 H Blood Pressure Mean 116 Blood Pressure Mean [Right Arm] 121 02 Sat by Pulse Oximetry 100 100 Oxygen Delivery Method Room Air Orders (Tests/Meds): ED MEDICATIONS Discontinued Medications Generic Name Dose Route Start Last Admin Trade Name Freq PRN Reason Stop Dose Admin Lorazepam 1 mg 08/19/23 09:17 08/19/23 09:29 Lorazepam 1mg Tablet PO 08/19/23 09:18 1 mg ONCE ONE Administration ORDERS Category Date Time Status Chest XR 2 view (NOT portable) [XR chest 2V] Stat Exams 08/19/23 09:17 Taken ECG Data Tracing #1: I reviewed this ECG and interpreted as documented below: Ventricular rate of 93 normal sinus rhythm there is a poor baseline on this EKG with some artifact but no definitive ST elevations or depressions or acute ischemic changes noted there is normal axis no significant conduction abnormalities Medical Decision Narrative: Well-known 37-year-old female presenting today with chest discomfort following meth abuse. EKG is nonischemic we will get a chest x-ray. This is not consistent with acute coronary syndrome or myocardial injury. I will administer a single dose of p.o. benzodiazepine and reassess. I suspect this is largely anxiety. She has been advised that I would not be prescribing any controlled substance and that she will follow-up with primary care doctor tomorrow which she understands. Chest x-ray performed I personally interpreted which shows no acute cardiopulmonary emergency Reassessment [id number] patient remains very stable as stated above this is not consistent with cardiopulmonary emergency and as she is very well-known to our emergency department she appears very well and her symptoms are consistent with chronic anxiety. She was given a dose of Ativan and discharged with advised to follow-up closely with her primary care doctor. Critical Care Critical Care Time Critical Care Time: No
[2023-08-19] MEDS: LORazepam 1MG TABLET 1 MG PO (09:29)
[2023-08-19 09:30] VITALS: BP 155/96; PULSE 78; O2SAT 100
--- NOTE | 2023-08-19 09:45 | PC.NURSE ---
PT TO XR
--- NOTE | 2023-08-19 09:48 | PC.NURSE ---
PT RETURNED FROM XR
[2023-08-19 09:54] VITALS: BP 155/96; PULSE 82; RESP 18; TEMP 36.9; O2SAT 98
== END 2023-08-19 09:55 | disposition home or self-care (01) ==
PROVIDERS: Emergency Provider Student in an Organized Health Care Education/Training Program; PCP Nurse Practitioner Family
DX: R07.89 Other chest pain (principal); F15.90 Other stimulant use, unspecified, uncomplicated; F41.1 Generalized anxiety disorder
CPT/HCPCS: 71046; 93005; 99284

== ENCOUNTER 2023-10-21 20:44 | Emergency (ER) | payer BC, SELFPAY ==
[2023-10-21 20:44] VITALS: BP 168/98; PULSE 88; RESP 20; TEMP 36.9; O2SAT 98; BMI 35.7
--- NOTE | 2023-10-21 20:51 | HMH.EDGENADL ---
Discharge Plan Disposition Patient Disposition: Home, Self-Care Condition: Good Prescriptions Prescriptions: New dicyclomine 10 mg capsule 10 mg PO BID Qty: 4 0RF ondansetron 4 mg tablet,disintegrating 4 mg PO Q6H PRN (Reason: nausea and vomiting) Qty: 7 0RF No Action pregabalin [Lyrica] 300 mg capsule 300 mg PO BID 30 Days Qty: 60 1RF acetaminophen 500 mg Tablet 1,000 mg PO Q6HP PRN (Reason: Mild To Moderate Pain (1-6)) Qty: 30 1RF ibuprofen 400 mg Tablet 800 mg PO Q8HP PRN (Reason: Mild To Moderate Pain (1-6)) Qty: 60 2RF hydroxyzine pamoate 25 mg Capsule 50 mg PO Q8HP PRN (Reason: ANXIETY/SLEEP) Qty: 60 2RF oxycodone 5 mg Tablet 5 mg PO Q4HP PRN (Reason: Severe Pain (7-10)) Qty: 8 0RF Referrals Follow up/Referrals: Mora Smith APRN [Primary Care Provider] - See instructions Activity Restrictions/Add. Instructions Additional Instructions/Restrictions: You were evaluated in the ER. You are appropriate for discharge at this time. Take the prescribed medications as directed. Continue taking your home medications as previously prescribed. Follow-up with your primary care doctor for reevaluation and for an ultrasound of the mass in your right breast. Return to the ER with new, worsening, or otherwise concerning symptoms. Clinical Impressions Clinical Impression: Abdominal pain, right lower quadrant, Breast lump or mass Instructions Patient Instructions: DI for Acute Abdominal Pain Print Language Print Language: Sudanese Discharge ED Provider: Bacilio Laguerre General Adult HPI <DANIA Ibarra - Last Filed: 10/21/23 21:52> General Chief complaint: Abdominal Pain Stated complaint: abd pain Time Seen by Provider: 10/21/23 20:50 History of Present Illness HPI narrative: Patient presents for evaluation of acute abdominal pain. Patient states that she began having pain this morning that initially started around her umbilicus however is moved to her right lower quadrant. She denies fever chills hemoptysis hematochezia melena vomiting or diarrhea but does report nausea. She does have a history of pancreatitis and recently got out of the hospital 3 days ago for an acute flare at [facility]. Patient states that she is no longer using meth but does have a history of many different substances of abuse including marijuana and methamphetamine and alcohol. Related Data Previous Rx's ?Medication ?Instructions ?Recorded pregabalin 300 mg capsule (Lyrica) 300 mg PO BID pain 30 days #60 caps 02/05/23 acetaminophen 500 mg tablet 1,000 mg (2 x 500 mg) PO Q6HP PRN 07/15/23 Mild To Moderate Pain (1-6) #30 tabs hydroxyzine pamoate 25 mg capsule 50 mg (2 x 25 mg) PO Q8HP PRN 07/15/23 ANXIETY/SLEEP #60 caps ibuprofen 400 mg tablet 800 mg (2 x 400 mg) PO Q8HP PRN 07/15/23 Mild To Moderate Pain (1-6) #60 tabs oxycodone 5 mg tablet 5 mg PO Q4HP PRN Severe Pain 07/15/23 (7-10) #8 tabs dicyclomine 10 mg capsule 10 mg PO BID #4 caps 10/22/23 ondansetron 4 mg disintegrating 4 mg PO Q6H PRN nausea and 10/22/23 tablet vomiting #7 tabs Allergies Allergy/AdvReac Type Severity Reaction Status Date / Time droperidol AdvReac Intermediate jaw go Verified 07/13/23 11:30 sideways prochlorperazine AdvReac Verified 07/14/23 10:10 [From Compazine] tramadol AdvReac Verified 07/14/23 10:10 PFS <DANIA Ibarra - Last Filed: 10/21/23 21:52> [facility] Disclaimer: The information contained in this section may have been updated after the patient was seen, as this information can be updated by other users. Medical History Gastroenteritis Acute lower GI bleeding Depressed Anxiety History of fracture of hand compartment sydrome Overactive bladder Osteoarthritis Gallbladder disease History of gastroesophageal reflux (GERD) Patient left without being seen Sinusitis Impetigo Abdominal pain Na
--- NOTE | 2023-10-21 20:58 | CT_ITS ---
PROCEDURE INFORMATION: Exam: CT Abdomen And Pelvis With Contrast Exam date and time: 10/21/2023 10:48 PM Age: 37 years old Clinical indication: Abdominal pain; Additional info: Right lower quadrant abdominal pain TECHNIQUE: Imaging protocol: Computed tomography of the abdomen and pelvis with contrast. Total images: 320 Radiation optimization: All CT scans at this facility use at least one of these dose optimization techniques: automated exposure control; mA and/or kV adjustment per patient size (includes targeted exams where dose is matched to clinical indication); or iterative reconstruction. Contrast material: ISOVUE; Contrast volume: 75 ml; Contrast route: IV; COMPARISON: CT ABDOMEN PELVIS W CON 03/01/2023 5:20 AM FINDINGS: Lungs: 4 mm noncalcified right middle lobe nodule, axial image 3 series 3. Heart: Normal heart size. Liver: Normal. No mass. Gallbladder and biliary ducts: Status post cholecystectomy. No biliary ductal dilatation. Pancreas: Normal. No ductal dilation. Spleen: Mild splenomegaly at 14.4 cm. No splenic mass. Adrenal glands: Normal. No mass. Kidneys and ureters: No hydronephrosis, nephrolithiasis, or renal mass. Stomach and bowel: Unremarkable stomach and duodenum. No ileus or bowel obstruction. Unremarkable small bowel and terminal ileum. Unremarkable colon and rectum. Appendix: Normal appendix. Intraperitoneal space: No ascites. No free air. Vasculature: Abdominal aorta is normal in caliber. Major abdominal vessels enhance appropriately. Lymph nodes: Small bilateral inguinal lymph nodes are likely reactive/postinflammatory. Urinary bladder: Unremarkable as visualized. Reproductive: Retroverted uterus. Physiologic ovaries. No adnexal mass. Trace free pelvic fluid. Bones/joints: Unremarkable. No acute fracture. Soft tissues: 2.2 cm oval right breast mass in the lower inner quadrant. IMPRESSION: 1. 2.2 cm right breast mass. Appearance not significantly changed from February 01, 2023. Follow-up nonemergent breast ultrasound if not previously evaluated. 2. Stable benign 4 mm right middle lobe nodule. 3. Mild splenomegaly at 14.4 cm. 4. No acute intra-abdominal process. 5. Normal appendix.
[2023-10-21 21:00] VITALS: BP 155/100; PULSE 77; RESP 20; O2SAT 100
--- NOTE | 2023-10-21 22:24 | PC.NURSE ---
IV inserted per US , pt. medicated for pain and nausea,
[2023-10-21 22:26] LABS: Basophils % 0.6 % (0.1-2.0); Eosinophils # 0.1 K/mm3 (0.0-0.4); Eosinophils % 1.2 % (0.1-12.0); Hematocrit 32.3 % (37.0-47.0); Hemoglobin 10.5 g/dL (12.2-16.2); Lymphocytes # 1.3 K/mm3 (0.7-4.5); Lymphocytes % 24.7 % (10-50); Mean Corpuscular HGB Conc 32.5 g/dL (31.8-35.4); Mean Corpuscular Hemoglobin 25.5 pg (27.0-31.2); Mean Corpuscular Volume 78.5 fl (81-99); Mean Platelet Volume 8.5 fl (7.4-10.4); Monocytes # 0.2 K/mm3 (0.1-1.0); Monocytes % 3.7 % (1.7-9.3); Neutrophils # 3.7 K/mm3 (1.8-7.8); Neutrophils % 69.8 % (37.0-80.0); Platelet Count 261 K/mm3 (142-424); Red Blood Count 4.12 M/mm3 (4.20-5.40); Red Cell Distribution Width 18.1 % (11.5-17.5); White Blood Count 5.3 K/mm3 (4.8-10.8)
[2023-10-21 22:31] LABS: Albumin Level 4.1 g/dl (3.5-5.0); Chloride 109 mmol/L (98-107); Potassium 3.6 mmoL/L (3.5-5.1); Sodium 137 mmol/L (136-145)
[2023-10-21 22:33] LABS: Blood Urea Nitrogen 5 mg/dl (7-17); Creatinine Clearance Estimated 239 mL/min (50-200); Estimated Glomerular Filt Rate 140 ml/min (>60); GFR (African American) 169 ML/MIN (>60)
[2023-10-21 22:34] LABS: Alanine Aminotransferase 24 U/L (12-78); Albumin/Globulin Ratio 1.4 (1.1-1.8); Alkaline Phosphatase 104 U/L (38-126); Anion Gap 10.6 mEq/L (5-15); Aspartate Amino Transferase 27 U/L (14-36); Bilirubin,Total 0.8 mg/dl (0.2-1.3); Calcium 8.9 mg/dl (8.4-10.2); Carbon Dioxide 21 mmol/L (22.0-30.0); Glucose 85 mg/dl (74-100); Lipase 40 U/L (23-300); Total Protein,Serum 7.1 g/dl (6.3-8.2)
[2023-10-21 22:35] LABS: HCG Qualitative, Serum Negative (Negative); Magnesium 1.8 mg/dl (1.6-2.3)
[2023-10-21 23:26] LABS: Microscopic, Urine URINE MICROSCOPIC (MICROSCOPIC)
[2023-10-21 23:34] LABS: Appearance,Urine CLEAR (Clear); Bilirubin,Urine Negative (Negative); Blood, Urine Negative (Negative); Color,Urine YELLOW (Yellow); Glucose,Urine (UA) Negative (Negative); Ketones,Urine 2+ (Negative); Leukocyte Esterase,Urine Negative (Negative); Nitrate,Urine Negative (Negative); PH,Urine 6.5 (5.0-8.5); Protein,Urine Negative (Negative); Specific Gravity, Urine 1.015 (1.005-1.030); Urobilinogen,Urine 0.2 EU/dl (0.2)
[2023-10-21 23:45] LABS: Bacteria,Urine 1+ /lpf; Barbiturates Screen,Urine Negative ng/ml (<200); RBC,Urine Occasional #/hpf (0-3)
[2023-10-21 23:46] LABS: Amphetamine/Metha Screen,Urine Negative ng/ml (<1000); Benzodiazepines Screen,Urine Negative ng/ml (<200)
[2023-10-21 23:47] LABS: Cocaine Screen,Urine Negative ng/ml (<300); Methadone Screen,Urine Negative ng/ml (<300)
[2023-10-21 23:48] LABS: Cannabinoid Screen,Urine Positive ng/ml (<50)
[2023-10-21 23:49] LABS: Opiate Screen,Urine Negative ng/ml (<300); Phencyclidine Screen,Urine Negative ng/ml (<25)
[2023-10-22 00:13] VITALS: BP 134/95; PULSE 89; RESP 20; TEMP 37.1; O2SAT 99
== END 2023-10-22 00:28 | disposition home or self-care (01) ==
PROVIDERS: Physician Assistant; Emergency Provider Emergency Medicine; PCP Nurse Practitioner Family
DX: R10.31 Right lower quadrant pain (principal); N63.10 Unspecified lump in the right breast, unspecified quadrant; F12.90 Cannabis use, unspecified, uncomplicated; F17.210 Nicotine dependence, cigarettes, uncomplicated; K21.9 Gastro-esophageal reflux disease without esophagitis
CPT/HCPCS: 74177; 80053; 80307; 81001; 83690; 83735; 84703; 85025; 96361; 96374; 96375; 99285; J0131; J1885; J2405; J7120; Q9967

== ENCOUNTER 2023-11-19 05:15 | Emergency (ER) | payer BC, SELFPAY ==
[2023-11-19 05:22] VITALS: BP 138/105; PULSE 101; RESP 15; TEMP 36.8; O2SAT 99; BMI 33.5
--- NOTE | 2023-11-19 05:22 | XR_ITS ---
PROCEDURE INFORMATION: Exam: XR Right Hand Exam date and time: 11/19/2023 5:25 AM Age: 37 years old Clinical indication: Pain; Hand; Right; Additional info: Punch something, pain TECHNIQUE: Imaging protocol: Radiologic exam of the right hand. Views: 3 or more views. COMPARISON: No relevant prior studies available. FINDINGS: Bones/joints: Normal. Soft tissues: Normal. IMPRESSION: No acute findings.
--- NOTE | 2023-11-19 05:22 | XR_ITS ---
PROCEDURE INFORMATION: Exam: XR Right Wrist Exam date and time: 11/19/2023 5:27 AM Age: 37 years old Clinical indication: Pain; Wrist; Right; Additional info: Punched something, pain TECHNIQUE: Imaging protocol: Radiologic exam of the right wrist. Views: 1 or 2 views. COMPARISON: CR Hand R 11/19/2023 5:25 AM FINDINGS: Bones/joints: Normal. Soft tissues: Normal. IMPRESSION: No acute findings.
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
[2023-11-19 05:55] VITALS: BP 126/88; PULSE 72; RESP 16; TEMP 36.6; O2SAT 99
== END 2023-11-19 05:57 ==
PROVIDERS: Emergency Provider Emergency Medicine; PCP Nurse Practitioner Family
DX: M79.641 Pain in right hand (principal); W22.8XXA Striking against or struck by other objects, initial encounter
CPT/HCPCS: 73100; 73130; 99283

== ENCOUNTER 2024-02-03 14:58 | Outpatient (POV) | payer BC, SELFPAY ==
--- OUTSIDE RECORDS SUMMARY | 2024-02-03 15:05 | XMS_ITS | Encounter Summary ---
Author Organization [facility] Address [address] [place] [address] Care Team Providers Care Quality Engineer Name Role Phone QamarLisa mckeon Beatriz ORELLANA Primary Care Provider [phone] Encounter Details Date Type Department Care Team (Late st Contact Info) Description 01/26/2024 Transitional Care Management Telephone Encounter [facility] [address] [place] [phone] Asiya Barnes, RN Social History Tobacco Use Types Packs/Day Years Used Date Smoking Tobacco: Every Day Cigarettes 0.5 15.3 Started: 11/01/2008 Smokeless Tobacco: Never Alcohol Use Standard Drinks/Week Comments Yes 0 (1 standard drink = 0.6 oz pur e alcohol) OCCASIONAL Abuse Screen Answer Date Recorded Feels Unsafe at Home or Work/School no 10/08/2022 Feels Threatened by Someone no 09/23 Does Anyone Try to Keep You From Having Contact with Others or Doing Things Outside Your Home? no 10/08/2022 Physical Signs of Abuse Present no 10/08/2022 PHQ-2 Answer Date Recorded Retired PHQ-9: Brief Depression Severity Measure Score 0 10/09/2023 Comments No Sex and Gender Information Value Date Recorded Sex Assigned at Not on file Legal Sex Female 12:53 PM EDT Gender Identity Not on file Sexual Orientation Not on file documented as of this encounter Miscellaneous Notes * Outreach Note - Asiya Barnes, RN - 01/26/2024 9:07 AM EST Images from the original note were not included. Call Center TCM Note Flowsheet Row Responses Congregational facility patient discharged from? Non-BH [[facility]] Does the patient have one of the following disease processes/diagnoses(primary or secondary)? Other TCM attempt successful? No Unsuccessful attempts Attempt 1 [Attempted to reach patient, mother Asiya and sig other Napoleon, listed on PCP verbal release. NO answer.] Call Status Left message [Left message on patient voicemail] Asiya Barnes RN 01/26/2024, 09:14 EST documented in this encounter Plan of Treatment Not on file documented as of this encounter Visit Diagnoses Not on filedocumented in this encounter Care Teams Quality Engineer Relationship Specialty Start Date End Date Lisa Foote APRN [address] [place] [id number] PCP - General Family Medicine 10/09/23 documented as of this encounter
--- OUTSIDE RECORDS SUMMARY | 2024-02-03 15:05 | XMS_ITS | Encounter Summary ---
[facility] Address [address] [place] [address] Care Team Providers Care Manufacturing Helper Name Role Phone Jumana Foote CABIN CLEANING SUPERVISOR Primary Care Provider [phone] Reason for Visit * Reason Onset Date Comments Med Refill 12/29/2023 Encounter Details Date Type Department Care Team (Late st Contact Info) Description 12/29/2023 Refill [facility] [address] [place] [phone] Jumana Foote, CABIN CLEANING SUPERVISOR [address] [place] [address] Acute on chronic pancreatitis Social History Tobacco Use Types Packs/Day Years [...] as of this encounter Miscellaneous Notes * Telephone Encounter - Zaida Castaneda - 12/29/2023 10:34 AM EST This rx was discontinued on 11/02/2023 by jumana foote. I have denied for this reason. TF * Telephone Encounter - Alyse Mcgovern RegSched Rep - 12/29/2023 9:28 AM EST Caller: Lila Mcnally Relationship: Self Best call back number: [phone] Requested Prescriptions: Requested Prescriptions Pending Prescriptions Disp Refills pregabalin (LYRICA) 300 MG capsule 60 capsule 0 Sig: Take 1 capsule by mouth 2 (Two) Times a Day for 30 days. Pharmacy where request should be sent: [id number] - [place], [place] - [address] [place] [id number] [place] [phone] FX Last office visit with prescribing clinician: 11/02/2023 Last telemedicine visit with prescribing clinician: Visit date not found Next office visit with prescribing clinician: 01/01/2024 Additional details provided by patient: OUT OF MEDICATION Does the patient have less than a 3 day supply: [x] Yes [] No Would you like a call back once the refill request has been completed: [] Yes [x] No If the office needs to give you a call back, can they leave a voicemail: [] Yes [x] No Silke Li 12/29/23 09:28 EST documented in this encounter Plan of Treatment Not on file documented as of this encounter Visit Diagnoses Diagnosis Acute on chronic pancreatitis documented in this encounter Care Teams Manufacturing Helper Relationship Specialty Start Date End Date Jumana Foote APRN [address] [place], [place] [id number] PCP - General Family Medicine 10/09/23 documented as of this encounter
--- OUTSIDE RECORDS SUMMARY | 2024-02-03 15:05 | XMS_ITS | Encounter Summary ---
[facility] Address [address] [place] [address] Care Team Providers Care Sports Journalist Name Role Phone QamarLisa mckeon Beatriz ORELLANA Primary Care Provider Encounter Details Date Type Department Care Team (Late st Contact Info) Description 01/25/2024 Readmission Management [facility] [address] [place] [phone] Mariel Leon, RN Social History Tobacco Use Types Packs/Day [...] encounter Miscellaneous Notes * Outreach Note - Mariel Leon RN - 01/25/2024 5:22 PM EST Prep Survey Flowsheet Row Responses [facility] facility patient discharged from? Non-BH Is LACE score < 7 ? Non-BH Discharge Eligibility [facility] Date of Admission 01/19/24 Date of Discharge 01/20/24 Discharge Disposition Home or Self Care Discharge diagnosis Chronic pancreatitis, unspecified pancreatitis type Does the patient have one of the following disease processes/diagnoses(primary or secondary)? Other Prep survey completed? Yes Mariel Denton - Registered Nurse documented in this encounter Plan of Treatment Not on file documented as of this encounter Visit Diagnoses Not on filedocumented in this encounter Care Teams Sports Journalist Relationship Specialty Start Date End Date Lisa Foote APRN [address] [place], [place] [id number] PCP - General Family Medicine 10/09/23 documented as of this encounter
--- OUTSIDE RECORDS SUMMARY | 2024-02-03 15:05 | XMS_ITS | Encounter Summary ---
Author Organization [facility] Address [address] [place] [address] Care Team Providers Care Beam House Inspector Name Role Phone Provider, No Known Primary Care Provider Unavail able Reason for Visit * Reason Comments Abdominal Pain Encounter Details Date Type Department Care Team (Late st Contact Info) Description 04/28/2021 6:52 AM EST - 04/28/2021 11:37 AM EST Emergency [facility] EMERGENCY [facility]PART[facility] [address] [place] [address] Carter Li MD [address] [facility] [place] [address] Chronic pancreatitis, unspecified pancreatitis type (Primary Dx); Nausea; Pain of upper abdomen Discharge Disposition: Home or Self Care Social History Tobacco Use Types Packs/Day Years Used Date Smoking Tobacco: Every Day Cigarettes Alcohol Use Standard Drinks/Week Comments Yes 0 (1 standard drink = 0.6 oz pur e alcohol) OCCASIONAL Comments No Sex and Gender Information Value Date Recorded Sex Assigned at Not on file Legal Sex Female 12:53 PM EDT Gender Identity Not on file Sexual Orientation Not on file documented as of this encounter Last Filed Vital Signs Vital Sign Reading Time Taken Comments Blood Pressure 133/86 04/28/2021 11:00 AM EST Pulse 65 04/28/2021 11:00 AM EST Temperature 37.2 ??C (99 ??F) 04/28/2021 6:51 AM EST Respiratory Rate 18 04/28/2021 6:51 AM EST Oxygen Saturation 99% 04/28/2021 11:00 AM EST Inhaled Oxygen Concentration - - Weight 95.3 kg (210 lb) 04/28/2021 6:51 AM EST Height 165.1 cm (5' 5 ) 04/28/2021 6:51 AM EST Body Mass Index 34.95 04/28/2021 6:51 AM EST documented in this encounter Medications at Time of Discharge acetaminophen (TYLENOL) 500 MG tablet Take 2 tablets by mouth Every 6 (Six) Hours As Needed. ibuprofen (ADVIL,MOTRIN) 800 MG tablet Take 1 tablet by mouth 3 (Three) Times a Day With Meals. 15 tablet 10/02/2018 naloxone (NARCAN) 4 MG/0.1ML nasal spray 4 mg into the nostril(s) as directed by provider. 02/10/2021 2 sucralfate (CARAFATE) 1 GM/10ML suspension Take 1 g by mouth 4 (Four) Times a Day. 04/20/2021 2 lidocaine (LIDODERM) 5 % Apply 1 patch topically to the appropriate area as directed. 4 lurasidone (LATUDA) 40 MG tablet tablet Take 40 mg by mouth Daily. 4 Melatonin 10 MG tablet Take 10 tablets by mouth. 4 pancrelipase, Ocu-Uwaw-Znqk, (CREON) 50132-67342 units capsule delayed-release particles capsule Take 2 capsules by mouth. 4 pantoprazole (PROTONIX) 40 MG EC tablet Take 40 mg by mouth. 04/20/2021 4 PREDNISONE PO Take by mouth. 02 4 pregabalin (LYRICA) 300 MG capsule Take 1 capsule by mouth. 04/24/2021 4 venlafaxine XR (EFFEXOR-XR) 150 MG 24 hr capsule Take 1 capsule by mouth Daily. 4 documented as of this encounter ED Notes * Karen Almanza PA - 04/28/2021 7:15 AM EST Subjective Pt is a 35 yo female presenting to ED with complaints of abdominal pain. PMHx significant for Anxiety, Bipolar, Fibromyalgia, Pancreatitis and Chronic abdominal pain. Pt reports having sharp stabbingupper abdominal pain for the past 3 days. She reports going to [place] ED on Thursday and having normal labs and told me it wasn't my pancrease but it has to be . She states they gave her a Rx for Oxycodone and I tried to stretch it out but I am out . 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 She reports nausea but denies vomiting. She has had diarrhea but denies bloody stool or urinary sx. Her prior abdominal surgical hx includes cholecystectomy. She uses tobacco and reports quitting marijuana several months ago. She denies drug use or ETOH use. She denies known sick contacts or recent antibiotics. NOTE Reviewed records in [facility]. Patient evaluated at ED just prior to arrival to ED this morning. Note she was given a dose of Oxycodone around 0600. Pt evaluated at ED 04-26 and most recently discharged from admission 04-24. She also was admitted 04-10 to 04-20 for chronic abdominal pain / chronic pancreatitis / pain control. She had EGD 04-18 showing erosive gastropathy/negative H Pylori. Most recently given Rx for Oxycodone on 04-24 for [address] scan of abdomen/pelvis on 04-24 without acute findings. Confronted patient about misinformation she provided during initial evaluation. She explains she didn't want to be judged for coming to another hospital. She apologizes for being untruthful. 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 by: Patient and medical records Review of Systems Constitutional: Negative for fever. HENT: Negative for congestion. Eyes: Negative for visual disturbance. Respiratory: Negative for cough and shortness of breath. Cardiovascular: Negative for chest pain. Gastrointestinal: Positive for abdominal pain, diarrhea and nausea. Negative for blood in stool andvomiting. Genitourinary: Negative for difficulty urinating, dysuria, flank pain, frequency, vaginal bleeding and vaginal discharge. Musculoskeletal: Negative for arthralgias and back pain. Neurological: Negative for dizziness, syncope, weakness, numbness and headaches. Psychiatric/Behavioral: Negative for confusion. Past Medical History: Diagnosis Date ??? Anxiety ??? Compartment syndrome (HCC) Allergies Allergen Reactions ??? Codeine ??? Morphine And Related ??? Toradol [Ketorolac Tromethamine] ??? Tramadol Past Surgical History: Procedure Laterality Date ??? CHOLECYSTECTOMY ??? DILATATION AND CURETTAGE History reviewed. No pertinent family history. Social History Socioeconomic History ??? Marital status: Single Tobacco Use ??? Smoking status: Current Every Day Smoker Packs/day: 0.50 Substance and Sexual Activity ??? Alcohol use: Yes Comment: OCCASIONAL ??? Drug use: No Objective Physical Exam Vitals and nursing note reviewed. Constitutional: Appearance: She is well-developed. She is obese. HENT: Head: Atraumatic. Nose: Nose normal. Eyes: General: Lids are normal. Conjunctiva/sclera: Conjunctivae normal. Pupils: Pupils are equal, round, and reactive to light. Cardiovascular: Rate and Rhythm: Normal rate and regular rhythm. Heart sounds: Normal heart sounds. Pulmonary: Effort: Pulmonary effort is normal. Breath sounds: Normal breath sounds. No wheezing. Abdominal: General: There is no distension. Palpations: Abdomen is soft. Tenderness: There is abdominal tenderness in the epigastric area and left upper quadrant. There is no guarding or rebound. Musculoskeletal: General: No tenderness. Normal range of motion. Cervical back: Normal range of motion and neck supple. Skin: General: Skin is warm and dry. Findings: No erythema or rash. Neurological: Mental Status: She is alert and oriented to person, place, and time. Sensory: No sensory deficit. Psychiatric: Speech: Speech normal. Behavior: Behavior normal. Procedures ED Course ED Course as of 04/28/21 1248 Sun Apr 28, 2021 0803 Lactate: 1.4 [RT] 0803 WBC: 6.38 [RT] 0813 Lipase(!): 196 [RT] ED Course User Index [RT] Karen Almanza PA Discussed patient with Dr. Li who is agreeable with ED course and tx plan. Re-examined patient several times in ED. Discussed tx in ED with alternative to narcotics. Pt givenKetamine and Inapsine in ED with resolution of her abdominal pain and nausea. She is feeling much better. Discussed results and tx plan. She has an appointment with [facility]. She will also f/u with PCP. Reviewed old records. cs Recent Results (from the past 24 hour(s)) Comprehensive Metabolic Panel Collection Time: 04/28/21 7:36 AM Specimen: Blood Result Value Ref Range Glucose 97 65 - 99 mg/dL BUN 9 6 - 20 mg/dL Creatinine 0.57 0.57 - 1.00 mg/dL Sodium 134 (L) 136 - 145 mmol/L Potassium 4.1 3.5 - 5.2 mmol/L Chloride 103 98 - 107 mmol/L CO2 21.0 (L) 22.0 - 29.0 mmol/L Calcium 8.8 8.6 - 10.5 mg/dL Total Protein 6.5 6.0 - 8.5 g/dL Albumin 3.60 3.50 - 5.20 g/dL ALT (SGPT) 9 1 - 33 U/L AST (SGOT) 12 1 - 32 U/L Alkaline Phosphatase 81 39 - 117 U/L Total Bilirubin 0.3 0.0 - 1.2 mg/dL Globulin 2.9 gm/dL A/G Ratio 1.2 g/dL BUN/Creatinine Ratio 15.8 7.0 - 25.0 Anion Gap 10.0 5.0 - 15.0 mmol/L eGFR 122.5 >60.0 mL/min/1.73 Lipase Collection Time: 04/28/21 7:36 AM Specimen: Blood Result Value Ref Range Lipase 196 (H) 13 - 60 U/L Urinalysis With Microscopic If Indicated (No Culture) - Urine, Clean Catch Collection Time: 04/28/21 7:36 AM Specimen: Urine, Clean Catch Result Value Ref Range Color, UA Yellow Yellow, Straw Appearance, UA Clear Clear pH, UA 8.0 5.0 - 8.0 Specific [place], UA <=1.005 1.001 - 1.030 Glucose, UA Negative Negative Ketones, UA Negative Negative Bilirubin, UA Negative Negative Blood, UA Negative Negative Protein, UA Negative Negative Leuk Esterase, UA Small (1+) (A) Negative Nitrite, UA Negative Negative Urobilinogen, UA 1.0 E.U./dL 0.2 - 1.0 E.U./dL CBC Auto Differential Collection Time: 04/28/21 7:36 AM Specimen: Blood Result Value Ref Range WBC 6.38 3.40 - 10.80 10*3/mm3 RBC 4.02 3.77 - 5.28 10*6/mm3 Hemoglobin 11.3 (L) 12.0 - 15.9 g/dL Hematocrit 34.8 34.0 - 46.6 % MCV 86.6 79.0 - 97.0 fL MCH 28.1 26.6 - 33.0 pg MCHC 32.5 31.5 - 35.7 g/dL RDW 14.9 12.3 - 15.4 % RDW-SD 47.5 37.0 - 54.0 fl MPV 10.2 6.0 - 12.0 fL Platelets 169 140 - 450 10*3/mm3 Neutrophil % 63.6 42.7 - 76.0 % Lymphocyte % 29.8 19.6 - 45.3 % Monocyte % 5.0 5.0 - 12.0 % Eosinophil % 0.3 0.3 - 6.2 % Basophil % 0.8 0.0 - 1.5 % Immature Grans % 0.5 0.0 - 0.5 % Neutrophils, Absolute 4.06 1.70 - 7.00 10*3/mm3 Lymphocytes, Absolute 1.90 0.70 - 3.10 10*3/mm3 Monocytes, Absolute 0.32 0.10 - 0.90 10*3/mm3 Eosinophils, Absolute 0.02 0.00 - 0.40 10*3/mm3 Basophils, Absolute 0.05 0.00 - 0.20 10*3/mm3 Immature Grans, Absolute 0.03 0.00 - 0.05 10*3/mm3 nRBC 0.0 0.0 - 0.2 /100 WBC Green Top (Gel) Collection Time: 04/28/21 7:36 AM Result Value Ref Range Extra Tube Hold for add-ons. Lavender Top Collection Time: 04/28/21 7:36 AM Result Value Ref Range Extra Tube hold for add-on Gold Top - SST Collection Time: 04/28/21 7:36 AM Result Value Ref Range Extra Tube Hold for add-ons. Gunter Top Collection Time: 04/28/21 7:36 AM Result Value Ref Range Extra Tube Hold for add-ons. Light Blue Top Collection Time: 04/28/21 7:36 AM Result Value Ref Range Extra Tube hold for add-on Lactic Acid, Plasma Collection Time: 04/28/21 7:36 AM Specimen: Blood Result Value Ref Range Lactate 1.4 0.5 - 2.0 mmol/L Urinalysis, Microscopic Only - Urine, Clean Catch Collection Time: 04/28/21 7:36 AM Specimen: Urine, Clean Catch Result Value Ref Range RBC, UA 0-2 None Seen, 0-2 /HPF WBC, UA 3-5 (A) None Seen, 0-2 /HPF Bacteria, UA 1+ (A) None Seen, Trace /HPF Squamous Epithelial Cells, UA 7-12 (A) None Seen, 0-2 /HPF Hyaline Casts, UA None Seen 0 - 6 /LPF Methodology Automated Microscopy POC , Urine Collection Time: 04/28/21 7:42 AM Specimen: Urine Result Value Ref Range HCG, Urine, QL Negative Negative Lot Number [id number] Internal Positive Control Passed Positive, Passed Internal Negative Control Negative Negative, Passed Expiration Date 05/23/22 Note: In addition to lab results from this visit, the labs listed above may include labs taken at another facility or during a different encounter within the last 24 hours. Please correlate lab timeswith ED admission and discharge times for further clarification of the services performed during this visit. No orders to display Vitals: 04/28/21 0900 04/28/21 0930 04/28/21 1000 04/28/21 1100 BP: 142/97 146/92 139/92 133/86 BP Location: Patient Position: Pulse: 67 52 58 65 Resp: Temp: TempSrc: SpO2: 100% 99% 98% 99% Weight: Height: Medications ondansetron (ZOFRAN) injection 4 mg (4 mg Intravenous Given 04/28/21 0752) sodium chloride 0.9 % bolus 1,000 mL (0 mL Intravenous Stopped 04/28/21 1031) famotidine (PEPCID) injection 20 mg (20 mg Intravenous Given 04/28/21 0756) ketamine (KETALAR) syringe 28.6 mg (28.6 mg Intravenous Given 04/28/21 1016) droperidol (INAPSINE) injection 2.5 mg (2.5 mg Intravenous Given 04/28/21 1016) ECG/EMG Results (last 24 hours) No results found for the last 24 hours. No orders to display DISCHARGE Patient discharged in stable condition. Reviewed implications of results, diagnosis, meds, responsibility to follow up, warning signs and symptoms of possible worsening, potential complications and reasons to return to ER. Patient/Family voiced understanding of above instructions. Discussed plan for discharge, as there is no emergent indication for admission. Pt/family is agreeable and understands need for follow up and possible repeat testing. Pt/family is aware that discharge does not mean that nothing is wrong but that it indicates no emergency is currently present that requires admission and they must continue care with follow-up as given below or with a physician of their choice. FOLLOW-UP GI Doctor at as scheduled. PCP VALERIE Pain managment at [facility] No changes were made to your prescriptions during this visit. DAMIAN reviewed by Carter Li MD [facility] Final diagnoses: Chronic pancreatitis, unspecified pancreatitis type (HCC) Nausea Pain of upper abdomen ED Disposition ED Disposition ED Disposition Discharge Condition Stable Comment -- GI Doctor at as scheduled. PCP VALERIE Pain managment at [facility] No changes were made to your prescriptions during this visit. Karen Almanza PA 04/28/21 1248 Cosigned by Carter Li MD at 04/28/2021 4:14 PM EST Associated attestation - Carter Li MD - 04/28/2021 4:14 PM EST SUPERVISE: For this patient encounter, I reviewed the APC's documentation, treatment plan, and medical decision making. Carter Li MD 04/28/2021 16:14 EST documented in this encounter Miscellaneous Notes * External Patient Instructions - Interface, See Report - 04/28/2021 10:59 AM EST Patient Education Table of Contents Chronic Pancreatitis Pancreatitis Eating Plan To view videos and all your education online visit, [email or web address] or scan this QR code with your smartphone. Chronic Pancreatitis Chronic pancreatitis is long-lasting inflammation and scarring of the pancreas. The pancreas is a gland that is located behind the stomach. It makes enzymes that help to digest food. The pancreas also releases hormones called glucagon and insulin, which help regulate blood sugar (glucose). Damage to the pancreas may affect digestion, cause pain in the upper abdomen and back, and may cause diabetes. Inflammation can also irritate other organs in the abdomen near the pancreas. At first, pancreatitis may be sudden (acute). If you have several or prolonged episodes of acute pancreatitis, the condition can turn into chronic pancreatitis. What are the causes? The most common cause of this condition is alcohol abuse. Other causes include: High (elevated) levels of triglycerides in the blood (hypertriglyceridemia). Gallstones or other conditions that can block the tube that drains the pancreas (pancreatic duct). Pancreatic cancer. Cystic fibrosis. Too much calcium in the blood (hypercalcemia), which may be caused by an overactive parathyroid gland (hyperparathyroidism). Certain medicines. Injury to the pancreas. Infection. Autoimmune pancreatitis. This is when the body's disease-fighting (immune) system attacks the pancreas. Genes that are passed from parent to child (inherited). In some cases, the cause may not be known. What increases the risk? This condition is more likely to develop in: Men. People who are 35?55 years old. People who have a family history of pancreatitis. People who smoke tobacco. People who drink large amounts of alcohol over a long period of time. What are the signs or symptoms? Symptoms of this condition may include: Pain in the abdomen or upper back. Pain may get worse after eating. Nausea and vomiting. Fever. Weight loss. A change in the color and consistency of bowel movements, such as stools that are oily, fatty, or jayne-colored. How is this diagnosed? This condition is diagnosed based on your symptoms, your medical history, and a physical exam. You may have tests, such as: Blood tests. Stool samples. Biopsy of the pancreas. This is the removal of a small amount of pancreas tissue to be tested in a lab. Imaging tests, such as: X-rays. CT scan. MRI. Ultrasound. How is this treated? You may need to be treated at a hospital. Treatment may involve: Resting the pancreas. You may need to stop eating and drinking for a few days to give your pancreastime to recover. During this time, you will be given IV fluids to keep you hydrated. Controlling pain. You may be given pain medicines by mouth (orally) or as injections. Improving digestion. You may be given: Medicines to replace your pancreatic enzymes. Vitamin supplements. A specific diet to follow. You may work with a diet and medical program specialist (dietitian) to make aneating plan. Surgery to: Clear the pancreatic ducts of any blockages, such as gallstones. Remove any fluid or damaged tissue from the pancreas. Other treatments may include: Preventing diabetes. Your health care provider may recommend that you: Get regular screening tests for diabetes. Monitor your blood glucose regularly. Lifestyle changes, such as stopping alcohol use. Steroid medicines, if your condition is caused by your immune system attacking your body's own tissues (autoimmune disease). Follow these instructions at home: Eating and drinking Do not drink alcohol. If you need help quitting, ask your health care provider. Follow a diet as told by your health care provider or dietitian, if this applies. This may include: Limiting how much fat you eat. Eating smaller meals more often. Avoiding caffeine. Drink enough fluid to keep your urine pale yellow. General instructions Take pkga-hww-nvwvkta and prescription medicines only as told by your health care provider. These include vitamin supplements. Do not drive or use heavy machinery while taking prescription pain medicine. If you are taking prescription pain medicine, take actions to prevent or treat constipation. Your health care provider may recommend that you: Take an eucz-ydr-wjcthsi or prescription medicine for constipation. Eat foods that are high in fiber such as whole grains and beans. Limit foods that are high in fat and processed sugars, such as fried or sweet foods. Do not use any products that contain nicotine or tobacco, such as cigarettes and e-cigarettes. If you need help quitting, ask your health care provider. If recommended by your health care provider, monitor your blood glucose at home. Keep all follow-up visits as told by your health care provider. This is important. Contact a health care provider if: You have pain that does not get better with medicine. You have a fever. You have sudden weight loss. Get help right away if: Your pain suddenly gets worse. You have sudden swelling in your abdomen. You start to vomit often. You have diarrhea that does not go away. You vomit blood or have blood in your stool. You become confused or you have trouble thinking clearly. These symptoms may represent a serious problem that is an emergency. Do not wait to see if the symptoms will go away. Get medical help right away. Call your local emergency services (911 in the [place] Do not drive yourself to the hospital. Summary Chronic pancreatitis is long-lasting inflammation and scarring of the pancreas. Damage to the pancreas may affect digestion, cause pain in the upper abdomen and back, and may cause diabetes. Inflammation can also irritate other organs in the abdomen near the pancreas. Common causes of this condition are alcohol abuse, gallstones, high (elevated) levels of triglycerides, and certain medicines. This condition is sometimes treated at a hospital and may involve resting the pancreas, controllingpain, replacing enzymes, and avoiding alcohol. This information is not intended to replace advice given to you by your health care provider. Make sure you discuss any questions you have with your health care provider. Document Released: 03/07/2016Document Revised: 1Document Reviewed: 11/22/2020 [employer] Patient Education ? 2020 [employer]. Pancreatitis Eating Plan Pancreatitis is when your pancreas becomes irritated and swollen (inflamed). The pancreas is a small organ located behind your stomach. It helps your body digest food and regulate your blood sugar. Pancreatitis can affect how your body digests food, especially foods with fat. You may also have other symptoms such as abdominal pain or nausea. When you have pancreatitis, following a low-fat eating plan may help you manage symptoms and recover more quickly. Work with your health care provider or a diet and medical program specialist (dietitian) to create an eating plan that is right for you. What are tips for following this plan? Reading food labels Use the information on food labels to help keep track of how much fat you eat: Check the serving size. Look for the amount of total fat in grams (g) in one serving. Low-fat foods have 3 g of fat or less per serving. Fat-free foods have 0.5 g of fat or less per serving. Keep track of how much fat you eat based on how many servings you eat. For example, if you eat two servings, the amount of fat you eat will be two times what is listed onthe label. Shopping Buy low-fat or nonfat foods, such as: Fresh, frozen, or canned fruits and vegetables. Grains, including pasta, bread, and rice. Lean meat, poultry, fish, and other protein foods. Low-fat or nonfat dairy. Avoid buying bakery products and other sweets made with whole milk, butter, and eggs. Avoid buying snack foods with added fat, such as anything with butter or cheese flavoring. Cooking Remove skin from poultry, and remove extra fat from meat. Limit the amount of fat and oil you use to 6 teaspoons or less per day. Cook using low-fat methods, such as boiling, broiling, grilling, steaming, or baking. Use spray oil to cook. Add fat-free chicken broth to add flavor and moisture. Avoid adding cream to thicken soups or sauces. Use other thickeners such as corn starch or tomato paste. Meal planning Eat a low-fat diet as told by your dietitian. For most people, this means having no more than 55?65grams of fat each day. Eat small, frequent meals throughout the day. For example, you may have 5?6 small meals instead of 3 large meals. Drink enough fluid to keep your urine pale yellow. Do not drink alcohol. Talk to your health care provider if you need help stopping. Limit how much caffeine you have, including black coffee, black and green tea, caffeinated soft drinks, and energy drinks. General information Let your health care provider or dietitian know if you have unplanned weight loss on this eating plan. You may be instructed to follow a clear liquid diet during a flare of symptoms. Talk with your health care provider about how to manage your diet during symptoms of a flare. Take any vitamins or supplements as told by your health care provider. Work with a dietitian, especially if you have other conditions such as obesity or diabetes mellitus. What foods should I avoid? Fruits Fried fruits. Fruits served with butter or cream. Vegetables Fried vegetables. Vegetables cooked with butter, cheese, or cream. Grains Biscuits, waffles, donuts, pastries, and croissants. Pies and cookies. Butter- flavored popcorn. Regular crackers. Meats and other protein foods Fatty cuts of meat. Poultry with skin. Organ meats. Telles, sausage, and cold cuts. Whole eggs. Nutsand nut butters. Dairy Whole and 2% milk. Whole milk yogurt. Whole milk ice cream. Cream and ncls-axl-dith. Cream cheese. Sour cream. Cheese. Beverages Wine, beer, and liquor. The items listed above may not be a complete list of foods and beverages to avoid. Contact a dietitian for more information. Summary Pancreatitis can affect how your body digests food, especially foods with fat. When you have pancreatitis, it is recommended that you follow a low-fat eating plan to help you recover more quickly and manage symptoms. For most people, this means limiting fat to no more than 55?65 grams per day. Do not drink alcohol. Limit the amount of caffeine you have, and drink enough fluid to keep your urine pale yellow. This information is not intended to replace advice given to you by your health care provider. Make sure you discuss any questions you have with your health care provider. Document Released: 05/18/2018Document Revised: 06/02/2019Document Reviewed: 05/18/2018 [employer] Patient Education ? 2020 [employer]. documented in this encounter Plan of Treatment Not on file documented as of this encounter Procedures Procedure Name Priority Date/Time Associated Diagnosis Comments POCT PEFORM URINE STAT 04/28/2021 7:42 AM EST GUNTER TOP STAT 04/28/2021 7:36 AM EST GOLD TOP - SST STAT 04/28/2021 7:36 AM EST DK GREEN TOP STAT 04/28/2021 7:36 AM EST URINALYSIS, MICROSCOPIC ONLY STAT 04/28/2021 7:36 AM EST URINALYSIS W/ MICROSCOPIC IF INDICATED (NO CULTURE) STAT 04/28/2021 7:36 AM EST CBC WITH AUTO DIFFERENTIAL STAT 04/28/2021 7:36 AM EST LAVENDER TOP STAT 04/28/2021 7:36 AM EST LIGHT BLUE TOP STAT 04/28/2021 7:36 AM EST RAINBOW DRAW STAT 04/28/2021 7:36 AM EST CBC AND DIFFERENTIAL STAT 04/28/2021 7:36 AM EST LIPASE STAT 04/28/2021 7:36 AM EST LACTIC ACID, PLASMA STAT 04/28/2021 7 :36 AM EST COMPREHENSIVE METABOLIC PANEL STAT 04/28/2021 7:36 AM EST documented in this encounter Results * POC , Urine (04/28/2021 7:42 AM EST) Pathologist [facility] HCG, Urine, QL Negative Negative [facility] Lot Number [id number] [facility] Internal Positive Control Passed Positive, Passed [facility] Internal Negative Control Negative Negative, Passed [facility] Expiration Date 05/23/22 [facility] Urine 04/28/2021 7:42 AM EST Karen NAJERA POINT OF CARE TEST ORDERABLES Final Result [facility]
[address] [place] [address], * (ABNORMAL) Urinalysis, Microscopic Only - Urine, Clean Catch (04/28/2021 7:36 AM EST) Pathologist [facility] RBC, UA 0-2 None Seen, 0-2 /HPF 04/28/2021 7:49 AM EST [facility] WBC, UA 3-5(A) None Seen, 0-2 /HPF 04/28/2021 7:49 AM EST [facility] Bacteria, UA 1+(A) None Seen, Trace /HPF 04/28/2021 7:49 AM EST [facility] Squamous Epithelial Cells, UA 7-12(A) None Seen, 0-2 /HPF 04/28/2021 7:49 AM EST [facility] Hyaline Casts, UA None Seen 0 - 6 /LPF 04/28/2021 7:49 AM EST [facility] Methodology Automated Microscopy 04/28/2021 7:49 AM EST [facility] Urine Urine specimen obtained by clean catch procedure / Unknown Collection / Unknown 04/28/2021 7:36 AM EST 04/28/2021 7:45 AM EST Karne NAJERA URINE ORDERABLES Final Result Performing Organization Address [facility]/ZIP Co de Phone Number [facility]
[address] [place] [address], * Lactic Acid, Plasma (04/28/2021 7:36 AM EST) Lactate 1.4 0.5 - 2.0 mmol/L 04/28/2021 8:01 AM EST [facility] Comment:Falsely depressed re sults may occur on samples drawn from patients receiving N-Acetylcysteine (NAC) or Metamizole. Blood Venipuncture / Unknown 04/28/2021 7:36 AM EST 04/28/2021 7:44 AM EST Karen NAJERA LAB BLOOD ORDERABLES Final Res ult Performing Organization Address [facility] Co de Phone Number [facility]
[address] [place] [address], * Light Blue Top (04/28/2021 7:36 AM EST) Extra Tube hold for add-on 04/28/2021 8:48 AM EST [facility] Comment:Auto resulted Blood Venipuncture / Unknown 04/28/2021 7:36 AM EST 04/28/2021 7:44 AM EST Karen NAJERA LAB BLOOD ORDER ONLY Final Res ult Performing Organization Address City/[facility]/ZIP Co de Phone Number [facility]
[address] [place] [address], * Gunter Top (04/28/2021 7:36 AM EST) Extra Tube Hold for add-ons. 04/28/2021 11:48 AM EST [facility] Comment:Auto resulted. Blood Venipuncture / Unknown 04/28/2021 7:36 AM EST 04/28/2021 7:44 AM EST us Karen Lantigua Archie PA LAB BLOOD ORDER ONLY Final Res ult Performing Organization Address City/[facility]/ZIP Co de Phone Number [facility]
[address] [place] [address], * Gold Top - SST (04/28/2021 7:36 AM EST) Extra Tube Hold for add-ons. 04/28/2021 8:48 AM EST [facility] Comment:Auto resulted. Blood Venipuncture / Unknown 04/28/2021 7:36 AM EST 04/28/2021 7:44 AM EST us Karen Lantigua Archie PA LAB BLOOD ORDER ONLY Final Res ult Performing Organization Address [facility] de Phone Number [facility]
[address] [place] [address], * Lavender Top (04/28/2021 7:36 AM EST) Extra Tube hold for add-on 04/28/2021 8:48 AM EST [facility] Comment:Auto resulted Blood Venipuncture / Unknown 04/28/2021 7:36 AM EST 04/28/2021 7:44 AM EST us Jones L Archie PA LAB BLOOD ORDER ONLY Final Res ult Performing Organization Address City/[facility] Co de Phone Number [facility]
[address] [place] [address], * Green Top (Gel) (04/28/2021 7:36 AM EST) Extra Tube Hold for add-ons. 04/28/2021 8:48 AM EST [facility] Comment:Auto resulted. Blood Venipuncture / Unknown 04/28/2021 7:36 AM EST 04/28/2021 7:44 AM EST Karen NAJERA LAB BLOOD ORDER ONLY Final Res ult [facility]
[address] [place] [address], * (ABNORMAL) CBC Auto Differential (04/28/2021 7:36 AM EST) Pathologist [facility] WBC 6.38 3.40 - 10.80 10*3/mm3 04/28/2021 7:46 AM [facility] RBC 4.02 3.77 - 5.28 10*6/mm3 04/28/2021 7:46 AM [facility] Hemoglobin 11.3(L) 12.0 - 15.9 g/dL 04/28/2021 7:46 AM [facility] Hematocrit 34.8 34.0 - 46.6 % 04/28/2021 7:46 AM [facility] MCV 86.6 79.0 - 97.0 fL 04/28/2021 7:46 AM [facility] MCH 28.1 26.6 - 33.0 pg 04/28/2021 7:46 AM [facility] MCHC 32.5 31.5 - 35.7 g/dL 04/28/2021 7:46 AM [facility] RDW 14.9 12.3 - 15.4 % 04/28/2021 7:46 AM [facility] RDW-SD 47.5 37.0 - 54.0 fl 04/28/2021 7:46 AM [facility] MPV 10.2 6.0 - 12.0 fL 04/28/2021 7:46 AM [facility] Platelets 169 140 - 450 10*3/mm3 04/28/2021 7:46 AM [facility] Neutrophil % 63.6 42.7 - 76.0 % 04/28/2021 7:46 AM [facility] Lymphocyte % 29.8 19.6 - 45.3 % 04/28/2021 7:46 AM [facility] Monocyte % 5.0 5.0 - 12.0 % 04/28/2021 7:46 AM [facility] Eosinophil % 0.3 0.3 - 6.2 % 04/28/2021 7:46 AM [facility] Basophil % 0.8 0.0 - 1.5 % 04/28/2021 7:46 AM [facility] Immature Grans % 0.5 0.0 - 0.5 % 04/28/2021 7:46 AM [facility] Neutrophils, Absolute 4.06 1.70 - 7.00 10*3/mm3 04/28/2021 7:46 AM [facility] Lymphocytes, Absolute 1.90 0.70 - 3.10 10*3/mm3 04/28/2021 7:46 AM [facility] Monocytes, Absolute 0.32 0.10 - 0.90 10*3/mm3 04/28/2021 7:46 AM [facility] Eosinophils, Absolute 0.02 0.00 - 0.40 10*3/mm3 04/28/2021 7:46 AM [facility] Basophils, Absolute 0.05 0.00 - 0.20 10*3/mm3 04/28/2021 7:46 AM [facility] Immature Grans, Absolute 0.03 0.00 - 0.05 10*3/mm3 04/28/2021 7:46 AM [facility] nRBC 0.0 0.0 - 0.2 /100 WBC 04/28/2021 7:46 AM [facility] Blood Venipuncture / Unknown 04/28/2021 7:36 AM EST 04/28/2021 7:44 AM EST us Karen NAJERA LAB BLOOD ORDERABLES Final Res ult [facility]
[address] [place] [address], * (ABNORMAL) Urinalysis With Microscopic If Indicated (No Culture) - Urine, Clean Catch (04/28/2021 7:36 AM EST) Color, UA Yellow Yellow, Straw 04/28/2021 7:49 AM [facility] Appearance, UA Clear Clear 04/28/2021 7:49 AM [facility] pH, UA 8.0 5.0 - 8.0 04/28/2021 7:49 AM [facility] Specific [place], UA <=1.005 1.001 - 1.030 04/28/2021 7:49 AM [facility] Glucose, UA Negative Negative 04/28/2021 7:49 AM [facility] Ketones, UA Negative Negative 04/28/2021 7:49 AM [facility] Bilirubin, UA Negative Negative 04/28/2021 7:49 AM [facility] Blood, UA Negative Negative 04/28/2021 7:49 AM [facility] Protein, UA Negative Negative 04/28/2021 7:49 AM [facility] Leuk Esterase, UA Small (1+)(A) Negative 04/28/2021 7:49 AM [facility] Nitrite, UA Negative Negative 04/28/2021 7:49 AM [facility] Urobilinogen, UA 1.0 E.U./dL 0.2 - 1.0 E.U./dL 04/28/2021 7:49 AM [facility] Urine Urine specimen obtained by clean catch procedure / Unknown Collection / Unknown 04/28/2021 7:36 AM EST 04/28/2021 7:45 AM EST Karen NAJERA URINE ORDERABLES Final Result Performing Organization Address City/[facility]/ZIP Co de Phone Number [facility]
[address] [place] [address], * (ABNORMAL) Lipase (04/28/2021 7:36 AM EST) Lipase 196(H) 13 - 60 U/L 04/28/2021 8:05 AM EST [facility] Blood Venipuncture / Unknown 04/28/2021 7:36 AM EST 04/28/2021 7:44 AM EST Karen NAJERA LAB BLOOD ORDERABLES Final Res ult Performing Organization Address City/[facility]/ZIP Co de Phone Number [facility] [place] [address], [place] [phone] * (ABNORMAL) Comprehensive Metabolic Panel (04/28/2021 7:36 AM EST) Glucose 97 65 - 99 mg/dL 04/28/2021 8:05 AM [facility] BUN 9 6 - 20 mg/dL 04/28/2021 8:05 AM [facility] Creatinine 0.57 0.57 - 1.00 mg/dL 04/28/2021 8:05 AM [facility] Sodium 134(L) 136 - 145 mmol/L 04/28/2021 8:05 AM [facility] Potassium 4.1 3.5 - 5.2 mmol/L 04/28/2021 8:05 AM [facility] Chloride 103 98 - 107 mmol/L 04/28/2021 8:05 AM [facility] CO2 21.0(L) 22.0 - 29.0 mmol/L 04/28/2021 8:05 AM [facility] Calcium 8.8 8.6 - 10.5 mg/dL 04/28/2021 8:05 AM [facility] Total Protein 6.5 6.0 - 8.5 g/dL 04/28/2021 8:05 AM [facility] Albumin 3.60 3.50 - 5.20 g/dL 04/28/2021 8:05 AM [facility] ALT (SGPT) 9 1 - 33 U/L 04/28/2021 8:05 AM [facility] AST (SGOT) 12 1 - 32 U/L 04/28/2021 8:05 AM [facility] Alkaline Phosphatase 81 39 - 117 U/L 04/28/2021 8:05 AM [facility] Total Bilirubin 0.3 0.0 - 1.2 mg/dL 04/28/2021 8:05 AM [facility] Globulin 2.9 gm/dL 04/28/2021 8:05 AM [facility] Comment:Calculated Result A/G Ratio 1.2 g/dL 04/28/2021 8:05 AM [facility] BUN/Creatinine Ratio 15.8 7.0 - 25.0 04/28/2021 8:05 AM [facility] Anion Gap 10.0 5.0 - 15.0 mmol/L 04/28/2021 8:05 AM [facility] eGFR 122.5 >60.0 mL/min/1. 73 04/28/2021 8:05 AM [facility] Comment:National Kidney Foun dation and [place] Society of Nephrology (ASN) Task Force recommended calculation based on the Chronic Kidney Disease Epidemiology Collaboration (CKD-EPI) equation refit without adjustment for race. Blood Venipuncture / Unknown 04/28/2021 7:36 AM EST 04/28/2021 7:44 AM EST [facility] - 04/28/2021 8:05 AM EST GFR Normal >60 Chronic Kidney Disease <60 Kidney Failure <15 Karen NAJERA LAB BLOOD ORDERABLES Final Res ult [facility]
[address] [place] [id number], documented in this encounter Visit Diagnoses Diagnosis Chronic pancreatitis, unspecified pancreatitis type- Primary Nausea Nausea alone Pain of upper abdomen documented in this encounter Administered Medications Inactive Administered Medications - up to 3 most recent administrations Medication Order MAR Action Action Date Dose Rate Site droperidol (INAPSINE) injection 2.5 mg 2.5 mg, Intravenous, Once, On 04/28/21 at 0906, For 1 dose Given 04/28/2021 10:16 AM EST 2.5 mg famotidine (PEPCID) injection 20 mg 20 mg, Intravenous, Once, On 04/28/21 at 0716, For 1 dose, Dilute to 10 mL total volume and give IV push over 2 minutes. Given 04/28/2021 7:56 AM EST 20 mg ketamine (KETALAR) syringe 28.6 mg 28.6 mg (rounded from 28.59 mg = 0.3 mg/kg ? 95.3 kg), Intravenous, Once, On 04/28/21 at 0857, For 1 dose Given 04/28/2021 10:16 AM EST 28.6 mg ondansetron (ZOFRAN) injection 4 mg 4 mg, Intravenous, Once, On 04/28/21 at 0716, For 1 dose Given 04/28/2021 7:52 AM EST 4 mg sodium chloride 0.9 % bolus 1,000 mL 1,000 mL, Intravenous, at 2,000 mL/hr, Administer over 0.5 Hours, Once, On 04/28/21 at 0716, For 1 dose New Bag 04/28/2021 7:52 AM EST 1,000 mL 2000 mL/hr documented in this encounter Active and Recently Administered Medications Times are shown in EST. Scheduled Medication Order 04/26/2021 04/27/2021 04/28/2021 droperidol (INAPSINE) injection 2.5 mg (COMPLETED) 2.5 mg, Intravenous, Once, On 04/28/21 at 0906, For 1 dose 1016 (Given - Provid er: Marybeth Samuel RN) famotidine (PEPCID) injection 20 mg (COMPLETED) 20 mg, Intravenous, Once, On 04/28/21 at 0716, For 1 dose, Dilute to 10 mL total volume and give IV push over 2 minutes. 0756 (Given - Provid er: Marybeth Samuel RN) ketamine (KETALAR) syringe 28.6 mg (COMPLETED) 28.6 mg (rounded from 28.59 mg = 0.3 mg/kg ? 95.3 kg), Intravenous, Once, On 04/28/21 at 0857, For 1 dose 1016 (Given - Provid er: Marybeth Samuel RN) ondansetron (ZOFRAN) injection 4 mg (COMPLETED) 4 mg, Intravenous, Once, On 04/28/21 at 0716, For 1 dose 0752 (Given - Provid er: Marybeth Samuel RN) sodium chloride 0.9 % bolus 1,000 mL (COMPLETED) 1,000 mL, Intravenous, at 2,000 mL/hr, Administer over 0.5 Hours, Once, On 04/28/21 at 0716, For 1 dose 0752 (New Bag - Prov ider: Marybeth Samuel RN)1031 (Stopped - Provider: Marybeth Samuel RN) documented in this encounter Care Teams Beam House Inspector Relationship Specialty Start Date End Date [place], [place] [address] PCP - General 04/28/21 10/07/22 documented as of this encounter
--- OUTSIDE RECORDS SUMMARY | 2024-02-03 15:05 | XMS_ITS | Encounter Summary ---
[facility] Address [address] [place] [address] Care Team Providers Care Mixing Machine Feeder Name Role Phone Elmo Escobar MD Primary Care Provider [phone] Encounter Details Date Type Department Care Team (Late st Contact Info) Description 08/21/2023 Telephone [facility] [address] [place] [address] [place] [phone] Dennys Ng MD [address] [place] [address] [place] [address] Social History Tobacco Use Types Packs/Day Years [...] Physical Signs of Abuse Present no 10/08/2022 Comments No Sex and Gender Information Value Date Recorded Sex Assigned at Not on file Legal Sex Female 12:53 PM EDT Gender Identity Not on file Sexual Orientation Not on file documented as of this encounter Miscellaneous Notes * Telephone Encounter - Asiya Lucas RegSched Rep - 08/21/2023 9:14 AM EDT CALLED PT TO RESCHEDULE 08/24 DUE TO PROVIDER [facility] CAN READ AND RESCHEDULE documented in this encounter Plan of Treatment Not on file documented as of this encounter Visit Diagnoses Not on filedocumented in this encounter Care Teams Mixing Machine Feeder Relationship Specialty Start Date End Date Elmo Escobar MD [address] [place] [id number] PCP - General Family Medicine 10/08/22 10/08/23 documented as of this encounter
--- OUTSIDE RECORDS SUMMARY | 2024-02-03 15:05 | XMS_ITS | Encounter Summary ---
Author Organization [facility] Address [address] [place] [address] Care Team Providers Care Collaborating Supervising Physician Name Role Phone Mia Paige MD Primary Care Provider [phone] Reason for Visit * Reason Comments Foot Injury Encounter Details Date Type Department Care Team (Late st Contact Info) Description 10/02/2018 12:39 AM EDT - 10/02/2018 1:28 AM EDT Emergency [facility] EMERGENCY DEPARTMENT [address] [place] [address] Francis Suarez MD [address] [place] [address] Contusion of right foot, initial encounter (Primary Dx); Sprain of right foot, initial encounter Discharge Disposition: Home or Self Care Social [...] Sign Reading Time Taken Comments Blood Pressure 138/79 10/01/2018 10:04 PM EDT Pulse 98 10/01/2018 10:04 PM EDT Temperature 36.9 ??C (98.4 ??F) 10/01/2018 10:04 PM E DT Respiratory Rate 18 10/01/2018 10:04 PM EDT Oxygen Saturation 94% 10/01/2018 10:04 PM EDT Inhaled Oxygen Concentration - - Weight 83.9 kg (185 lb) 10/01/2018 10:04 PM EDT Height 167.6 cm (5' 6 ) 10/01/2018 10:04 PM EDT Body Mass Index 29.86 10/01/2018 10:04 PM EDT documented in this encounter Discharge Instructions * Discharge Instructions* Carmen Miramontes APRN - 10/02/2018 1:06 AM EDT Use crutches. Rest, ice, compression and elevate extremity. No weight bearing. Take ibuprofen as ordered. * Attachments The following attachments cannot be sent through Care Everywhere. * Foot Contusion [id number] (Sammarinese) * Elastic Bandage and RICE Therapy (Sammarinese) * Foot Sprain (Sammarinese) documented in this encounter Medications at Time of Discharge ibuprofen (ADVIL,MOTRIN) 800 MG tablet Take 1 tablet by mouth 3 (Three) Times a Day With Meals. 15 tablet 10/02/2018 PREDNISONE PO Take by mouth. 10/09/2023 documented as of this encounter ED Notes * Carmen Miramontes APRN - 10/02/2018 1:01 AM EDT Subjective Lila Mcnally is a 32 yr old female that presents the emergency department with complaints of right foot pain. Patient explains that initially she dropped a brick on her foot 6 days ago. Patient was seen at [place] and had negative x- rays at this time. Patient was discharged home. Patient advises afew days later she tripped on some steps and twisted her foot. Patient at this time was seen at another emergency department and placed in a walking boot. Today the patient advised that she was attempting to ambulate without the boot and again twisted her foot causing pain to her foot as well as increased swelling to her foot. She advises that she has crutches however she does not want to use them. 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 by: Patient Foot Injury Location: Foot Foot location: R foot Pain details: Quality: Throbbing Timing: Constant Progression: Worsening Relieved by: Nothing Worsened by: Bearing weight and activity Associated symptoms: decreased ROM and swelling Associated symptoms: no numbness and no tingling Review of Systems Musculoskeletal: Rt foot pain Rt foot swelling All other systems reviewed and are negative. Past Medical History: Diagnosis Date ??? Anxiety ??? Compartment syndrome (CMS/HCC) Allergies Allergen Reactions ??? Codeine ??? Morphine And Related ??? Toradol [Ketorolac Tromethamine] ??? Tramadol Past Surgical History: Procedure Laterality Date ??? CHOLECYSTECTOMY ??? DILATATION AND CURETTAGE History reviewed. No pertinent family history. Social History Socioeconomic History ??? Marital status: Single Spouse name: Not on file ??? Number of children: Not on file ??? Years of education: Not on file ??? Highest education level: Not on file Tobacco Use ??? Smoking status: Current Every Day Smoker Packs/day: 0.50 Substance and Sexual Activity ??? Alcohol use: Yes Comment: OCCASIONAL ??? Drug use: No Objective Physical Exam Constitutional: She is oriented to person, place, and time. She appears well- developed and well-nourished. No distress. HENT: Head: Normocephalic and atraumatic. Eyes: EOM are normal. Pupils are equal, round, and reactive to light. Neck: Normal range of motion. Cardiovascular: Normal rate, regular rhythm and intact distal pulses. Pulmonary/Chest: Effort normal and breath sounds normal. No respiratory distress. Musculoskeletal: Rt foot: Swelling, ecchymosis. +palpable pulses. Decrease ROM r/t pain. Neurological: She is alert and oriented to person, place, and time. Skin: Skin is warm and dry. Psychiatric: She has a normal mood and affect. Nursing note and vitals reviewed. Procedures ED Course ED Course as of Oct 02 510 Sat Oct 02, 2018 0100 X-ray results were discussed with patient at this time. Patient encouraged to rest, ice, compression elevate extremity. Patient is currently taking Kinde for her pain. Patient to also add ibuprofen to her pain regimen. Patient to wear walking boot and use crutches. Patient to follow-up with Ortho. Patient agrees and verbalized understanding. [KG] ED Course User Index [KG] Carmen Miramontes, UPHOLSTERER APPRENTICE No results found for this or any previous visit (from the past 24 hour(s)). Note: In addition to lab results from this visit, the labs listed above may include labs taken at another facility or during a different encounter within the last 24 hours. Please correlate lab timeswith ED admission and discharge times for further clarification of the services performed during this visit. XR Foot 3+ View Right Final Result Soft tissue swelling without acute bony abnormality. Signer Name: Dillon Garcia MD Signed: 10/01/2018 11:24 PM Workstation Name: [facility] Vitals: 10/01/18 2204 BP: 138/79 BP Location: Left arm Patient Position: Sitting Pulse: 98 Resp: 18 Temp: 98.4 ??F (36.9 ??C) TempSrc: Oral SpO2: 94% Weight: 83.9 kg (185 lb) Height: 167.6 cm (66 ) Medications HYDROcodone-acetaminophen (NORCO) 5-325 MG per tablet 1 tablet (1 tablet Oral Given 10/02/18 011) ibuprofen (ADVIL,MOTRIN) tablet 800 mg (800 mg Oral Given 10/02/18 011) ECG/EMG Results (last 24 hours) No results found for the last 24 hours. No orders to display MDM Final diagnoses: Contusion of right foot, initial encounter Sprain of right foot, initial encounter Carmen Miramontes APRN 10/02/18 05 Cosigned by Francis Suarez MD at 10/02/2018 9:05 PM EDT Associated attestation - Francis Suarez MD - 10/02/2018 9:05 PM EDT For this patient encounter, I reviewed the CANDY WRAPPING MACHINE OPERATOR or PA documentation, treatment plan, and medical decision making. Francis Suarez MD 10/02/2018 9:04 PM documented in this encounter Plan of Treatment Not on file documented as of this encounter Procedures Procedure Name Priority Date/Time Associated Diagnosis Comments XR FOOT 3+ VW RIGHT STAT 10/01/2018 1 1:01 PM EDT documented in this encounter Results * XR Foot 3+ View Right (10/01/2018 11:01 PM EDT) Anatomical Region Laterality Modality Lower Extremities, Foot Right [facility] 10/01/2018 11:2 4 PM EDT Impressions 10/01/2018 11:24 PM EDT Soft tissue swelling without acute bony abnormality. Signer Name: Dillon Garcia MD Signed: 10/01/2018 11:24 PM Workstation Name: [facility] Narrative 10/01/2018 11:24 PM EDT CR Foot Comp Min 3 Vws RT INDICATION: 2 day history of right foot pain following injury COMPARISON: None available FINDINGS: 3 views of the right foot. ??No fracture or dislocation. ??No bone erosion or destruction. ??There is moderate soft tissue swelling over the dorsum of the foot. Procedure Note Dillon Garcia MD - 10/01/2018 CR Foot Comp Min 3 Vws RT INDICATION: 2 day history of right foot pain following injury COMPARISON: None available FINDINGS: 3 views of the right foot. No fracture or dislocation. No bone erosionor destruction. There is moderate soft tissue swelling over the dorsum ofthe foot. IMPRESSION: Soft tissue swelling without acute bony abnormality. Signer Name: Dillon Garcia MD Signed: 10/01/2018 11:24 PM Workstation Name: [facility] Francis Suarez MD IMG DIAGNOSTIC IMAGING ORD ERABLES Final Result documented in this encounter Visit Diagnoses Diagnosis Contusion of right foot, initial encounter- Primary Sprain of right foot, initial encounter documented in this encounter Administered Medications Inactive Administered Medications - up to 3 most recent administrations Medication Order MAR Action Action Date Dose Rate Site HYDROcodone-acetaminophen (NORCO) 5-325 MG per tablet 1 tablet 1 tablet, Oral, Once, On 10/02/18 at 0105, For 1 dose, [ROB] Do not exceed 4 grams of acetaminophen in a 24 hr period. If given for pain, use the following pain scale: Mild Pain = Pain Score of 1-3, CPOT 1-2 Moderate Pain = Pain Score of 4-6, CPOT 3-4 Severe Pain = Pain Score of 7-10, CPOT 5-8 Given 10/02/2018 1:18 AM EDT 1 tablet ibuprofen (ADVIL,MOTRIN) tablet 800 mg 800 mg, Oral, Once, On 10/02/18 at 0105, For 1 dose, If given for pain, use the following pain scale: Mild Pain = Pain Score of 1-3, CPOT 1-2 Moderate Pain = Pain Score of 4-6, CPOT 3-4 Severe Pain = Pain Score of 7-10, CPOT 5-8 Given 10/02/2018 1:19 AM EDT 800 mg documented in this encounter Active and Recently Administered Medications Times are shown in EDT. Scheduled Medication Order 09/30/2018 10/01/2018 10/02/2018 HYDROcodone-acetaminophen (NORCO) 5-325 MG per tablet 1 tablet (COMPLETED) 1 tablet, Oral, Once, On 10/02/18 at 0105, For 1 dose, [ROB] Do not exceed 4 grams of acetaminophen in a 24 hr period. If given for pain, use the following pain scale: Mild Pain = Pain Score of 1-3, CPOT 1-2 Moderate Pain = Pain Score of 4-6, CPOT 3-4 Severe Pain = Pain Score of 7-10, CPOT 5-8 0118 (Given - Provid er: Mireya Reilly RN) ibuprofen (ADVIL,MOTRIN) tablet 800 mg (COMPLETED) 800 mg, Oral, Once, On 10/02/18 at 0105, For 1 dose, If given for pain, use the following pain scale: Mild Pain = Pain Score of 1-3, CPOT 1-2 Moderate Pain = Pain Score of 4-6, CPOT 3-4 Severe Pain = Pain Score of 7-10, CPOT 5-8 0119 (Given - Provid er: Mireya Reilly RN) documented in this encounter Care Teams Collaborating Supervising Physician Relationship Specialty Start Date End Date Mia Paige MD PCP - General Family Medicine 10/01/18 04/27/21 documented as of this encounter
--- OUTSIDE RECORDS SUMMARY | 2024-02-03 15:05 | XMS_ITS | Encounter Summary ---
Author Organization [facility] Address [address] [place] [address] Care Team Providers Care Client Support Consultant Name Role Phone Elmo Escobar MD Primary Care Provider [phone] Encounter Details Date Type Department Care Team (Late st Contact Info) Description 08/26/2023 Patient rounding ([facility] only) [facility] [address] [place] [address] [place] [address] Kena Taylor RegSched Rep Social History Tobacco Use Types Packs/Day Years [...] on file documented as of this encounter Progress Notes * Kena Taylor RegSched Rep - 08/26/2023 1:56 PM EDTSummary: Rounding .A Hoppit message has been sent to the patient for patient rounding with [facility]. documented in this encounter Plan of Treatment Not on file documented as of this encounter Visit Diagnoses Not on filedocumented in this encounter Care Teams Client Support Consultant Relationship Specialty Start Date End Date Elmo Escobar MD [address] [place] [address] PCP - General Family Medicine 10/08/22 10/08/23 documented as of this encounter
--- OUTSIDE RECORDS SUMMARY | 2024-02-03 15:05 | XMS_ITS | Encounter Summary ---
Author Organization [facility] Address [address] [place] [address] Care Team Providers Care Power Distributor Name Role Phone Lisa Foote APRN Primary Care Provider [phone] [phone] Reason for Referral * Consultation (Routine) - Closed Specialty Diagnoses / Procedures Referred By Contac t Referred To Contact Internal Medicine Diagnoses Acute on chronic pancreatitis Procedures [place] OFFICE/OUTPATIENT NEW MODERATE MDM 45 MINUTES Lisa Foote APRN [address] [place] [address] Phone: tel: fax: Case, Jassi Godoy MD [address] [place] [id number] Phone: tel: fax: Referral ID Status Reason Start Date Expiration Date V isits Requested Visits Authorized [id number] Closed Specialty Services Required 11/02/2023 11/01/2024 1 1 Reason for Visit * Reason Comments Hospital Follow Up Visit Encounter Details Date Type Department Care Team (Late st Contact Info) Description 11/02/2023 1:30 PM EDT Office Visit [facility] [address] [place] [phone] Lisa Foote APRN [address] [place] [address] Acute on chronic pancreatitis (Primary Dx); Anxiety and depression; Class 1 obesity due to excess calories without serious comorbidity with body mass index (BMI) of 34.0 to 34.9 in adult; History of alcohol abuse Social History Tobacco Use Types Packs/Day Years [...] Sign Reading Time Taken Comments Blood Pressure 116/78 11/02/2023 1:28 PM EDT Pulse 76 11/02/2023 1:28 PM EDT Temperature 36.8 ??C (98.2 ??F) 11/02/2023 1:28 PM ED T Respiratory Rate 18 11/02/2023 1:28 PM EDT Oxygen Saturation 98% 11/02/2023 1:28 PM EDT Inhaled Oxygen Concentration - - Weight 92.1 kg (203 lb) 11/02/2023 1:28 PM EDT Height 165.1 cm (5' 5 ) 11/02/2023 1:28 PM EDT Body Mass Index 33.78 11/02/2023 1:28 PM EDT documented in this encounter Progress Notes * Lisa Foote, ESTEBAN - 11/06/2023 12:00 PM EDTAssociated Problem(s): Anxiety and depression During Her last visit patient also verbalized significant issues with anxiety and depression. She had failed multiple medications as well, Effexor and Latuda both causing suicidal ideation. She has not utilize any medication for the last 2 years. At 1 point she had also utilized Ativan for panic. She states her recent health issues are a big trigger for her anxiety. Is been referred to [facility] for further evaluation and treatment. * Lisa Foote APRN - 11/06/2023 12:00 PM EDTAssociated Problem(s): History of alcohol abuse Patient has suffered from heavy alcohol abuse for the last 7 years. * Lisa Foote APRN - 11/06/2023 11:59 AM EDTAssociated Problem(s): Acute on chronic pancreatitis presents today for follow-up after recurrence of acute on chronic pancreatitis. Patient has had 5 trips to the emergency department in the last 2 weeks for valuation of abdominal pain. Her abdominal pain was accompanied by nausea and vomiting, epigastric pain with radiation to the left upper quadrant and around into the left back. SHe has not had issues with bloody stools, fever, chills, diarrhea. After presenting to the emergency department at the [facility] for 6th time in two weeks she was admitted for 24 hours for what basically seems to be pain management. In review of her notes there was some concern for opioid dependence. During admission her lipase and lactate were notedto be within normal limits. Was no imaging evidence of chronic pancreatitis during that admission. She was started on duloxetine and Creon as well as increased dose of pregabalin during her most recent admission. He was advised that opioids are not recommended for chronic pancreatic pain. UnderwentMRCP during hospitalization. Patient is also noted to have marijuana use which could be contributing to her GI symptoms. States that she is feeling some better today. -Patient has been evaluated by Dr. Flores in [place] in the past but has not followed up in probably a year and a half. New referral placed today. -Patient advised I will not be prescrbing any further narcotics for her pain. We did increase her to 300 mg twice daily. * Lisa Foote APRN - 11/02/2023 1:30 PM EDT Images from the original note were not included. Office Note Name: Lila Mcnally : 1985 Chief Complaint Hospital Follow Up Visit Subjective History of Present Illness: Lila Mcnally is a 37 y.o. female who presents today for follow-up after recurrence of acute on chronic pancreatitis. Patient has had 5 trips to the emergency department in the last 2 weeks for valuation of abdominal pain. Her abdominal pain was accompanied by nausea and vomiting, epigastric pain with radiation to the left upper quadrant and around into the left back. SHe has not had issues with bloody stools, fever, chills, diarrhea. After presenting to the emergency department at the [facility] for 6th time in two weeks she was admitted for 24 hours for what basically seems to be pain management. In review of her notes there was some concern for opioid dependence. During adm ission her lipase and lactate were noted to be within normal limits. Was no imaging evidence of chronic pancreatitis during that admission. She was started on duloxetine and Creon as well as increased dose of pregabalin during her most recent admission. He was advised that opioids are not recommended for chronic pancreatic pain. Underwent MRCP during hospitalization. Patient is also noted to havemarijuana use which could be contributing to her GI symptoms. States that she is feeling some better today. She has no new complaints or concerns Review of Systems Constitutional: Negative for chills, fatigue and fever. Respiratory: Negative for cough, chest tightness, shortness of breath and wheezing. Cardiovascular: Negative for chest pain, palpitations and leg swelling. Gastrointestinal: Positive for abdominal pain. Negative for constipation, diarrhea and vomiting. Musculoskeletal: Positive for myalgias. Neurological: Negative for dizziness, weakness, light-headedness and headache. Objective Past Medical History: Diagnosis Date Anxiety Compartment syndrome Depression Nerve disorder Past Surgical History: Procedure Laterality Date CHOLECYSTECTOMY DILATATION AND CURETTAGE History reviewed. No pertinent family history. Vital Signs BP 116/78 (BP Location: Left arm, Patient Position: Sitting, Cuff Size: Adult) Pulse 76 Temp 98.2 ??F (36.8 ??C) (Temporal) Resp 18 Ht 165.1 cm (65 ) Wt 92.1 kg (203 lb) SpO2 98% BMI 33.78 kg/m?? Estimated body mass index is 33.78 kg/m?? as calculated from the following: Height as of this encounter: 165.1 cm (65 ). Weight as of this encounter: 92.1 kg (203 lb). Facility age limit for growth %david is 20 years. Physical Exam Vitals reviewed. HENT: Right Ear: Tympanic membrane, ear canal and external ear normal. Left Ear: Tympanic membrane, ear canal and external ear normal. Nose: Nose normal. Mouth/Throat: Mouth: Mucous membranes are dry. Pharynx: Oropharynx is clear. Eyes: Conjunctiva/sclera: Conjunctivae normal. Pupils: Pupils are equal, round, and reactive to light. Cardiovascular: Rate and Rhythm: Normal rate and regular rhythm. Pulses: Normal pulses. Heart sounds: Normal heart sounds. Pulmonary: Effort: Pulmonary effort is normal. Breath sounds: Normal breath sounds. Abdominal: General: There is no distension. Palpations: There is no mass. Tenderness: There is abdominal tenderness. There is no guarding or rebound. Musculoskeletal: General: Normal range of motion. Cervical back: Neck supple. Skin: General: Skin is warm and dry. Neurological: Mental Status: She is alert and oriented to person, place, and time. Psychiatric: Mood and Affect: Mood normal. Behavior: Behavior normal. Thought Content: Thought content normal. Judgment: Judgment normal. POCT Results (if applicable): Results for orders placed or performed during the hospital encounter of 10/08/22 Comprehensive Metabolic Panel Specimen: Blood Result Value Ref Range Glucose 141 (H) 65 - 99 mg/dL BUN 7 6 - 20 mg/dL Creatinine 0.62 0.57 - 1.00 mg/dL Sodium 142 136 - 145 mmol/L Potassium 3.6 3.5 - 5.2 mmol/L Chloride 105 98 - 107 mmol/L CO2 21.0 (L) 22.0 - 29.0 mmol/L Calcium 9.4 8.6 - 10.5 mg/dL Total Protein 7.5 6.0 - 8.5 g/dL Albumin 4.3 3.5 - 5.2 g/dL ALT (SGPT) 25 1 - 33 U/L AST (SGOT) 20 1 - 32 U/L Alkaline Phosphatase 108 39 - 117 U/L Total Bilirubin 0.3 0.0 - 1.2 mg/dL Globulin 3.2 gm/dL A/G Ratio 1.3 g/dL BUN/Creatinine Ratio 11.3 7.0 - 25.0 Anion Gap 16.0 (H) 5.0 - 15.0 mmol/L eGFR 119.3 >60.0 mL/min/1.73 Lipase Specimen: Blood Result Value Ref Range Lipase 82 (H) 13 - 60 U/L Urinalysis With Microscopic If Indicated (No Culture) - Urine, Clean Catch Specimen: Urine, Clean Catch Result Value Ref Range Color, UA Yellow Yellow, Straw Appearance, UA Clear Clear pH, UA 6.0 5.0 - 8.0 Specific [place], UA 1.015 1.001 - 1.030 Glucose, UA Negative Negative Ketones, UA Negative Negative Bilirubin, UA Negative Negative Blood, UA Negative Negative Protein, UA Negative Negative Leuk Esterase, UA Negative Negative Nitrite, UA Negative Negative Urobilinogen, UA 0.2 E.U./dL 0.2 - 1.0 E.U./dL Lactic Acid, Plasma Specimen: Blood Result Value Ref Range Lactate 2.3 (C) 0.5 - 2.0 mmol/L CBC Auto Differential Specimen: Blood Result Value Ref Range WBC 5.77 3.40 - 10.80 10*3/mm3 RBC 4.69 3.77 - 5.28 10*6/mm3 Hemoglobin 12.3 12.0 - 15.9 g/dL Hematocrit 38.3 34.0 - 46.6 % MCV 81.7 79.0 - 97.0 fL MCH 26.2 (L) 26.6 - 33.0 pg MCHC 32.1 31.5 - 35.7 g/dL RDW 15.3 12.3 - 15.4 % RDW-SD 45.7 37.0 - 54.0 fl MPV 10.3 6.0 - 12.0 fL Platelets 262 140 - 450 10*3/mm3 Neutrophil % 53.2 42.7 - 76.0 % Lymphocyte % 38.0 19.6 - 45.3 % Monocyte % 5.7 5.0 - 12.0 % Eosinophil % 1.2 0.3 - 6.2 % Basophil % 1.4 0.0 - 1.5 % Immature Grans % 0.5 0.0 - 0.5 % Neutrophils, Absolute 3.07 1.70 - 7.00 10*3/mm3 Lymphocytes, Absolute 2.19 0.70 - 3.10 10*3/mm3 Monocytes, Absolute 0.33 0.10 - 0.90 10*3/mm3 Eosinophils, Absolute 0.07 0.00 - 0.40 10*3/mm3 Basophils, Absolute 0.08 0.00 - 0.20 10*3/mm3 Immature Grans, Absolute 0.03 0.00 - 0.05 10*3/mm3 nRBC 0.0 0.0 - 0.2 /100 WBC STAT Lactic Acid, Reflex Specimen: Blood Result Value Ref Range Lactate 2.2 (C) 0.5 - 2.0 mmol/L POC Urine Specimen: Urine Result Value Ref Range HCG, Urine, QL Negative Negative Lot Number [id number] Internal Positive Control Passed Positive, Passed Internal Negative Control Passed Negative, Passed Expiration Date Green Top (Gel) Result Value Ref Range Extra Tube Hold for add-ons. Lavender Top Result Value Ref Range Extra Tube hold for add-on Gold Top - SST Result Value Ref Range Extra Tube Hold for add-ons. Gunter Top Result Value Ref Range Extra Tube Hold for add-ons. Light Blue Top Result Value Ref Range Extra Tube Hold for add-ons. Assessment and Plan Diagnoses and all orders for this visit: 1. Acute on chronic pancreatitis (Primary) Assessment & Plan: presents today for follow-up after recurrence of acute on chronic pancreatitis. Patient has had 5 trips to the emergency department in the last 2 weeks for valuation of abdominal pain. Her abdominal pain was accompanied by nausea and vomiting, epigastric pain with radiation to the left upper quadrant and around into the left back. SHe has not had issues with bloody stools, fever, chills, diarrhea. After presenting to the emergency department at the [facility] for 6th time in two weeks she was admitted for 24 hours for what basically seems to be pain management. In review of her notes there was some concern for opioid dependence. During admission her lipase and lactate were notedto be within normal limits. Was no imaging evidence of chronic pancreatitis during that admission. She was started on duloxetine and Creon as well as increased dose of pregabalin during her most recent admission. He was advised that opioids are not recommended for chronic pancreatic pain. UnderwentMRCP during hospitalization. Patient is also noted to have marijuana use which could be contributing to her GI symptoms. States that she is feeling some better today. -Patient has been evaluated by Dr. Flores in [place] in the past but has not followed up in probably a year and a half. New referral placed today. -Patient advised I will not be prescrbing any further narcotics for her pain. We did increase her to 300 mg twice daily. Orders: - Ambulatory Referral to Internal Medicine - Discontinue: oxyCODONE (OXY-IR) 5 MG capsule; Take 1 capsule by mouth Every 6 (Six) Hours As Needed for Moderate Pain. Dispense: 10 capsule; Refill: 0 - Discontinue: pregabalin (LYRICA) 300 MG capsule; Take 1 capsule by mouth 2 (Two) Times a Day for 30 days. Dispense: 60 capsule; Refill: 0 - Discontinue: pantoprazole (Protonix) 40 MG EC tablet; Take 1 tablet by mouth Daily. Dispense: 90 tablet; Refill: 1 2. Anxiety and depression Assessment & Plan: During Her last visit patient also verbalized significant issues with anxiety and depression. She had failed multiple medications as well, Effexor and Latuda both causing suicidal ideation. She has not utilize any medication for the last 2 years. At 1 point she had also utilized Ativan for panic. She states her recent health issues are a big trigger for her anxiety. Is been referred to [facility] for further evaluation and treatment. 3. Class 1 obesity due to excess calories without serious comorbidity with body mass index (BMI) of34.0 to 34.9 in adult 4. History of alcohol abuse Assessment & Plan: Patient has suffered from heavy alcohol abuse for the last 7 years. Other orders - Discontinue: sennosides-docusate (senna-docusate sodium) 8.6-50 MG per tablet; Take 1 tablet by mouth Daily. Dispense: 60 tablet; Refill: 1 Follow Up No follow-ups on file. Lisa Foote APRN documented in this encounter Plan of Treatment Not on file documented as of this encounter Visit Diagnoses Diagnosis Acute on chronic pancreatitis- Primary Anxiety and depression Class 1 obesity due to excess calories without serious comorbidity with body mass index (BMI) of 34.0 to 34.9 in adult History of alcohol abuse Nondependent alcohol abuse, in remission documented in this encounter Care Teams Power Distributor Relationship Specialty Start Date End Date Lisa Foote APRN [address] [place] [id number] PCP - General Family Medicine 10/09/23 documented as of this encounter
--- OUTSIDE RECORDS SUMMARY | 2024-02-03 15:05 | XMS_ITS | Encounter Summary ---
[facility] Organization [facility] Address [address] [place] [address] Care Team Providers Care Health Sciences Department Chair Name Role Phone Lisa Foote SPECIMEN TRANSPORTER Primary Care Provider [phone] Reason for Visit * Reason Onset Date Comments Med Refill 11/02/2023 Encounter Details Date Type Department Care Team (Late st Contact Info) Description 11/02/2023 Refill [facility] [address] [place] [phone] Lisa Foote, SPECIMEN TRANSPORTER [address] [place] [address] Acute on chronic pancreatitis Social [...] encounter Miscellaneous Notes * Telephone Encounter - Suha Jerez MA - 11/02/2023 2:37 PM EDT Caller: Lila Mcnally Relationship: Self Best call back number: [phone] Requested Prescriptions: Requested Prescriptions Pending Prescriptions Disp Refills pregabalin (LYRICA) 300 MG capsule 60 capsule 0 Sig: Take 1 capsule by mouth 2 (Two) Times a Day for 30 days. pantoprazole (Protonix) 40 MG EC tablet 90 tablet 1 Sig: Take 1 tablet by mouth Daily. sennosides-docusate (senna-docusate sodium) 8.6-50 MG per tablet 60 tablet 1 Sig: Take 1 tablet by mouth Daily. oxyCODONE (OXY-IR) 5 MG capsule 10 capsule 0 Sig: Take 1 capsule by mouth Every 6 (Six) Hours As Needed for Moderate Pain. Pharmacy where request should be sent: [id number] - [place], [place] - [address] [place] [address] AT [place] [address] - [phone] [facility] [phone] FX Last office visit with prescribing clinician: 11/02/2023 Last telemedicine visit with prescribing clinician: Visit date not found Next office visit with prescribing clinician: Visit date not found Additional details provided by patient: THIS WAS SENT TO THE WRONG PHARMACY PLEASE SEND TO [facility]. PLEASE CALL ONCE COMPLETED Does the patient have less than a 3 day supply: [x] Yes Would you like a call back once the refill request has been completed: [x] Yes If the office needs to give you a call back, can they leave a voicemail: [x] Yes Suha Jerez MA 11/02/23 14:38 EDT documented in this encounter Plan of Treatment Not on file documented as of this encounter Visit Diagnoses Diagnosis Acute on chronic pancreatitis documented in this encounter Care Teams Health Sciences Department Chair Relationship Specialty Start Date End Date Lisa Foote APRN [address] [place] [address] PCP - General Family Medicine 10/09/23 documented as of this encounter
--- OUTSIDE RECORDS SUMMARY | 2024-02-03 15:05 | XMS_ITS | Encounter Summary ---
[facility] Address [address] [place] [address] Care Team Providers Care Senior Quality Analyst Name Role Phone Lisa Foote Beatriz ORELLANA Primary Care Provider [phone] Encounter Details Date Type Department Care Team (Late st Contact Info) Description 10/28/2023 Readmission Management [facility] [address] [place] [phone] Domi Llamas, RN Social History Tobacco Use Types Packs/Day Years Used Date Smoking Tobacco: Every Day Cigarettes Smokeless Tobacco: Never Alcohol Use Standard Drinks/Week [...] encounter Miscellaneous Notes * Outreach Note - Domi Llamas, RN - 10/28/2023 6:12 PM EDT Prep Survey Flowsheet Row Responses [facility] patient discharged from? Non-BH Is LACE score < 7 ? Non-BH Discharge Eligibility [facility] Date of Admission 10/23/23 Date of Discharge 10/28/23 Discharge diagnosis Abdominal pain Does the patient have one of the following disease processes/diagnoses(primary or secondary)? Other Prep survey completed? Yes Domi Armstrong - Registered Nurse documented in this encounter Plan of Treatment Not on file documented as of this encounter Visit Diagnoses Not on filedocumented in this encounter Care Teams Senior Quality Analyst Relationship Specialty Start Date End Date Lisa Foote, SHIPPING AND RECEIVING WEIGHER [address] [place] [phone] PCP - General Family Medicine 10/09/23 documented as of this encounter
--- OUTSIDE RECORDS SUMMARY | 2024-02-03 15:05 | XMS_ITS | Encounter Summary ---
[facility] [address] [place] [address] Care Team Providers Care Cuprous Chloride Operator Name Role Phone Lisa Foote CREW FOREMAN Primary Care Provider [phone] Reason for Visit * Reason Onset Date Comments Med Refill 11/02/2023 Encounter Details Date Type Department Care Team (Late st Contact Info) Description 11/02/2023 Refill [facility] [address] [place] [phone] Lisa Foote, CREW FOREMAN [address] [place] [address] Acute on chronic pancreatitis Social [...] encounter Miscellaneous Notes * Telephone Encounter - Julieta Solomon MA - 11/02/2023 3:53 PM EDT Duplicate rx * Telephone Encounter - Meron Florian RegSched Rep - 11/02/2023 3:44 PM EDT Caller: Lila Mcnally Relationship: Self Best call back number: [phone] Requested Prescriptions: Requested Prescriptions Pending Prescriptions Disp Refills oxyCODONE (OXY-IR) 5 MG capsule 10 capsule 0 Sig: Take 1 capsule by mouth Every 6 (Six) Hours As Needed for Moderate Pain. Pharmacy where request should be sent: [facility][id number] - [address] AT [address] [phone] PH - [phone] Last office visit with prescribing clinician: 11/02/2023 Last telemedicine visit with prescribing clinician: Visit date not found Next office visit with prescribing clinician: Visit date not found Additional details provided by patient: Does the patient have less than a 3 day supply: [x] Yes No Would you like a call back once the refill request has been completed: [] Yes [x] No If the office needs to give you a call back, can they leave a voicemail: [] Yes [x] No Silke Delvalle 11/02/23 15:45 EDT documented in this encounter Plan of Treatment Not on file documented as of this encounter Visit Diagnoses Diagnosis Acute on chronic pancreatitis documented in this encounter Care Teams Cuprous Chloride Operator Relationship Specialty Start Date End Date Lisa Foote APRN [address] [place], [place] [phone] PCP - General Family Medicine 10/09/23 documented as of this encounter
--- OUTSIDE RECORDS SUMMARY | 2024-02-03 15:05 | XMS_ITS | Clinical Summary ---
Author Organization [facility] Address [address] [place] [address] Care Team Providers Care Cellular Phone Repairer Name Role Phone Lisa Foote Beatriz ORELLANA Primary Care Provider Allergies Active Allergy Reactions Criticality Noted Date Comments Codeine 02/18/2016 Droperidol Other (See Comments) 10/08/2022 JAW WEAKNESS Prochlorperazine Other (See Comments) Low 03/14/2023 Lock jaw Dystonic rxn treated w/ diphenhydramine Ketorolac Tromethamine 02/18/2016 Tramadol 02/18/2016 Medications ibuprofen (ADVIL,MOTRIN) 800 MG tablet Take 1 tablet by mouth 3 (Three) Times a Day With Meals. 15 tablet 9 Active acetaminophen (TYLENOL) 500 MG tablet Take 2 tablets by mouth Every 6 (Six) Hours As Needed. Active famotidine (PEPCID) 20 MG tablet Take 1 tablet by mouth 2 (Two) Times a Day. 10 tablet 3 Active ondansetron ODT (ZOFRAN-ODT) [address] 1 tablet on the tongue 4 (Four) Times a Day As Needed for Nausea or Vomiting. 8 tablet 3 Active promethazine (PHENERGAN) 12.5 MG tabletIndications:A cute on chronic pancreatitis Take 1 tablet by mouth Every 6 (Six) Hours As Needed for Nausea or Vomiting. 10 tablet 4 Active pantoprazole (Protonix) 40 MG EC tabletIndications:A cute on chronic pancreatitis Take 1 tablet by mouth Daily. 90 tablet 1 4 Active sennosides-docusate (senna-docusate sodium) 8.6-50 MG per tablet Take 1 tablet by mouth Daily. 60 tablet 1 4 Active oxyCODONE (OXY-IR) 5 MG capsuleIndications: Acute on chronic pancreatitis Take 1 capsule by mouth Every 6 (Six) Hours As Needed for Moderate Pain. 10 capsule 4 Active pregabalin (LYRICA) 300 MG capsuleIndications: Acute on chronic pancreatitis Take 1 capsule by mouth 2 (Two) Times a Day for 90 days. 180 capsule 4 03/29/19 25 Active Active Problems Problem Noted Date Diagnosed Date History of alcohol abuse 10/19/2023 Assessment & Plan (11/06/2023 12:00 PM EDT): Patient has suffered from heavy alcohol abuse for the last 7 years. Assessment & Plan (10/19/2023 3:36 PM EDT): Heavy abuse for 7 years, has not had alcohol for a couple of months Acute on chronic pancreatitis 10/09/2023 Assessment & Plan (11/06/2023 11:59 AM EDT): presents today for follow-up after recurrence of [...] presenting to the emergency department at the [facility] for 6th time in two weeks she was admitted for 24 hours for what basically seems to be pain management. In review of her notes there was some concern for opioid dependence. During admission her lipase and lactate were noted to [...] has been evaluated by Dr. Flores in [place] in the past but has not followed up in probably a year and a half. New referral placed today. -Patient advised I will not be prescrbing any further narcotics for her pain. We did increase her to 300 mg twice daily. Assessment & Plan (10/19/2023 3:37 PM EDT): presents today for follow-up after two emergency department evaluations for frequent flaring of acute on chronic pancreatitis. Patient last seen by me to establish care 10 days ago. That time she had just been in the emergency department 2 days prior with a flare of her pancreatitis. She states that she has suffered with the condition for a number of years. Patient was a heavy drinker for approximately 7 years before abstaining from alcohol from the last several months. She states that her pancreatitis is often triggered when she does not eat appropriately or when she has a rare social drink. Patient returned to the emergency department at [facility] on 10/12 and 10/17 complaints of abdominal pain, nausea and vomiting. Was given IV fluids, labs were obtained with improvement in lipase on her second visit. She was given promethazine and Zofran to take at home and advised to continue clear liquid diet. Patient states that her pain is still rating 9 out of 10 on the scale, she is still unable to hold down liquids, feeling very dehydrated at this point. She verbalizes potentially returning back to the emergency department for further evaluation and pain management today. She states they did consider admitting her for pain management when she was in the emergency department yesterday but ultimately released her due to normal lipase and her needing to get back to her children. -Patient has been evaluated by Dr. Flores in [place] in the past but has not followed up in probably a year and a half. -She is agreeable to referral to gastroenterology at [facility] in [place] specializes in pancreatic disorders. -Patient advised to continue clear liquid diet, prescription given for Protonix as she states it is provided benefit in the past. She continues to have Zofran and Phenergan available for symptom management as well. Carlyle significant signs of dehydration that require immediate presentation to the ER including decreased urinary output or rapid heart rate. Assessment & Plan (10/14/2023 1:02 PM EDT): Patient has suffered with acute on chronic pancreatitis for a number of years. She states that triggers are when she does not eat appropriately or rarely drinks socially. He was last evaluated for an acute flare at the [facility] 2 days ago in the emergency department where she received pain management and IV fluids. She was sent home with course of oxycodone and Zofran. She is requesting just a couple more days of oxycodone as her pain is persisting. Damian report reviewed and satisfactory. Anxiety and depression 10/09/2023 Assessment & Plan (11/06/2023 12:00 PM EDT): During Her last visit patient also verbalized [...] therapeutic interventions for further evaluation and treatment. Assessment & Plan (10/19/2023 3:36 PM EDT): During Her last visit patient also verbalized [...] therapeutic interventions for further evaluation and treatment. Assessment & Plan (10/14/2023 12:59 PM EDT): In regards to her anxiety depression patient has had long-term issues with both anxiety and depression. She relates that Effexor and Latuda both caused suicidal ideation. The last time she was on any type of medication was 2 years ago. She reports she is also utilized Ativan in the past for panic. Patient states that her biggest trigger for her anxiety is her health issues, particularly acute on chronic pancreatitis. She would like referral to behavioral health for further evaluation and treatment given adverse reactions to medication in the past. No current issues with SI or HI. Patient advised that we will have a behavioral health provider coming into our office the next couple of months, she is also given contact information to [facility] Encounter to establish care 10/09/2023 Nerve damage 10/09/2023 Assessment & Plan (10/14/2023 1:00 PM EDT): Patient states she suffered from a bout of compartment syndrome of her right hand several years ago requiring fasciotomy. Since that time she has had significant nerve damage and subsequent pain that has been treated since that time with pregabalin. DAMIAN report reviewed and satisfactory. Controlled substance agreement reviewed and signed. -Continue pregabalin 100 mg 3 times daily. Class 1 obesity due to exces s calories without serious comorbidity with body mass index (BMI) of 34.0 to 34.9 in adult 10/09/2023 Assessment & Plan (10/14/2023 12:59 PM EDT): Patient's (Body mass index is 34.28 kg/m??.) indicates that they are obese (BMI >30) with health conditions that include none . Weight is unchanged. BMI is above average; BMI management plan is completed. We discussed portion control and increasing exercise. Encounters Date Type Department Care Team Description 01/27/2024 Transitional Care Management Telephone Encounter [facility] [address] [facility] [place] [address] Barbara Clarke, CHANDNI 01/26/2024 Transitional Care Management Telephone Encounter [facility] [address] [place] [address] Asiya Barnes, RN 01/26/2024 Transitional Care Management Telephone Encounter [facility] [address] [place] [address] Asiya Barnes, RN 01/25/2024 Readmission Management [facility] [address] [place] [address] Mariel Leon, RN 12/30/[address] [facility] [address] [place] [address] [place] [address] Lisa Foote APRN Medication Problem 12/29/[address] [facility] [address] [place] [address] [place] [address] Lisa Foote APRN Acute on chronic pancreatitis 12/29/[address] [facility] [address] [place] [address] [place] [address] Lisa Foote, ESTEBAN Acute on chronic pancreatitis from Last 3 Months Immunizations Name Administration Dates Next Due Fluzone (or Fluarix & Flulav al for VFC) >6mos 02/05/2023,01/20/2022,12/27/2020, 0 20 Tdap 06/25/2021 Family History Relation Name Status Comments Father Alive Mother Alive Social History Tobacco Use Types Packs/Day Years [...] on file Sexual Orientation Not on file Last Filed Vital Signs Vital Sign Reading [...] Mass Index 33.78 11/02/2023 1:28 PM EDT Plan of Treatment Health Maintenance Due Date Last Done Comments Annual Gynecologic Pelvic an d Breast Exam 1986 Pneumococcal Vaccine 0-64 (1 of 2 - PCV) 1992 ANNUAL PHYSICAL 07/04/2016 PAP SMEAR 07/04/2016 INFLUENZA VACCINE 08/24/2023 02/05/2023, , 12/27/2020, Additional history exists COVID-19 Vaccine (2023- 5 season) 2023 02/10/2021, 07/05/2020, 06/11/2020 BMI FOLLOWUP 10/08/2024 10/09/2023, 10/09/2023 TDAP/TD VACCINES (2 - Td or Tdap) 06/26/2031 022 HEPATITIS C SCREENING Completed 10/07/2023 , 07/19/2022, 10/21/2020 Insurance [employer] Care Teams Cellular Phone Repairer Relationship Specialty Start Date End Date Lisa Foote APRN [address] [place] [address] PCP - General Family Medicine 10/09/23
--- OUTSIDE RECORDS SUMMARY | 2024-02-03 15:05 | XMS_ITS | Encounter Summary ---
Author Organization [facility] Address [address] [place] [address] Care Team Providers Care Personal Development Educator Name Role Phone Lisa Foote DESIGN ANALYST Primary Care Provider [phone] Reason for Visit * Reason Comments Establish Care - right wrist nerve damage requesting Lyrica 300 BID- acute pancreatitis was seen in the ER at -patient wants anxiety and depression wants a referral -referral to dermatology for lesion on left leg Encounter Details Date Type Department Care Team (Late st Contact Info) Description 10/09/2023 11:00 AM EDT Office Visit [facility] [address] [place] [phone] Lisa Foote APRN [address] [place] [address] Acute on chronic pancreatitis (Primary Dx); Anxiety and depression; Encounter to establish care; Nerve damage; Class 1 obesity due to excess calories without serious comorbidity with body mass index (BMI) of 34.0 to 34.9 in adult Social History Tobacco Use Types Packs/Day Years [...] Sign Reading Time Taken Comments Blood Pressure 138/82 10/09/2023 11:08 AM EDT Pulse 78 10/09/2023 11:08 AM EDT Temperature 36.2 ??C (97.2 ??F) 10/09/2023 11:08 AM E DT Respiratory Rate 18 10/09/2023 11:08 AM EDT Oxygen Saturation 98% 10/09/2023 11:08 AM EDT Inhaled Oxygen Concentration - - Weight 93.4 kg (206 lb) 10/09/2023 11:08 AM EDT Height 165.1 cm (5' 5 ) 10/09/2023 11:08 AM EDT Body Mass Index 34.28 10/09/2023 11:08 AM EDT documented in this encounter Progress Notes * Lisa Foote APRN - 10/14/2023 1:00 PM EDTAssociated Problem(s): Acute on chronic pancreatitis Patient has suffered with acute on chronic pancreatitis for a number of years. She states that triggers are when she does not eat appropriately or rarely drinks socially. He was last evaluated for anacute flare at the [facility] 2 days ago in the emergency department where she receivedpain management and IV fluids. She was sent home with course of oxycodone and Zofran. She is requesting just a couple more days of oxycodone as her pain is persisting. Damian report reviewed and satisfactory. * Lisa Foote APRN - 10/14/2023 1:00 PM EDTAssociated Problem(s): Nerve damage Patient states she suffered from a bout of compartment syndrome of her right hand several years agorequiring fasciotomy. Since that time she has had significant nerve damage and subsequent pain thathas been treated since that time with pregabalin. DAMIAN report reviewed and satisfactory. Controlled substance agreement reviewed and signed. -Continue pregabalin 100 mg 3 times daily. * Lisa Foote APRN - 10/14/2023 12:59 PM EDTAssociated Problem(s): Class 1 obesity due to excess calories without serious comorbidity with bodymass index (BMI) of 34.0 to 34.9 in adult Patient's (Body mass index is 34.28 kg/m??.) indicates that they are obese (BMI >30) with healthconditions that include none . Weight is unchanged. BMI is above average; BMI management plan is completed. We discussed portion control and increasing exercise. * Lisa Foote APRN - 10/09/2023 11:34 AM EDTAssociated Problem(s): Anxiety and depression In regards to her anxiety depression patient has had long-term issues with both anxiety and depression. She relates that Effexor and Latuda both caused suicidal ideation. The last time she was on anytype of medication was 2 years ago. She [...] into our office the next couple of months,she is also given contact information to [facility] * Lisa Foote APRN - 10/09/2023 11:00 AM EDT Images from the original note were not included. Office Note Name: Lila Mcnally : 1985 Chief Complaint Establish Care (- right wrist nerve damage requesting Lyrica 300 BID/- acute pancreatitis was seen in the ER at /-patient wants anxiety and depression wants a referral /-referral to dermatology for lesion on left leg ) Subjective History of Present Illness: Lila Mcnally is a 37 y.o. female who presents today to establish care. Patient has chronic conditions including pancreatitis, anxiety, depression and nerve damage to the right hand. Patient states she suffered from a bout of compartment syndrome of her right hand several years ago requiring fasciotomy. Since that time she has had significant nerve damage and subsequent pain that has been treated since that time with pregabalin. In regards to her anxiety depression patient has had long-term issues with both anxiety and depression. She relates that Effexor and Latuda both caused suicidal ideation. The last time she was on any type of medication was 2 years ago. She reports she is also util ized Ativan in the past for panic. Patient states that her biggest trigger for her anxiety is her health issues, particularly acute on chronic pancreatitis. She would like referral to behavioral health for further evaluation and treatment given adverse reactions to medication in the past. No current issues with SI or HI. Patient has suffered with acute on chronic pancreatitis for a number of years. She states that triggers are when she does not eat appropriately or rarely drinks socially. He was last evaluated for an acute flare at the [facility] 2 days ago in the emergency department where she received pain management and IV fluids. She was sent home with course of oxycodone and Zofran. No further complaints or concerns today.;. Review of Systems Constitutional: Positive for fatigue. Negative for chills and fever. Respiratory: Negative for cough and shortness of breath. Cardiovascular: Negative for chest pain, palpitations and leg swelling. Gastrointestinal: Positive for abdominal distention, abdominal pain, nausea and vomiting. Negative for constipation and diarrhea. Endocrine: Negative for polydipsia and polyuria. Neurological: Positive for numbness. Negative for dizziness, weakness and headache. Psychiatric/Behavioral: Positive for agitation, depressed mood and stress. Negative for self-injuryand suicidal ideas. The patient is nervous/anxious. Objective Past Medical History: Diagnosis Date Anxiety Compartment syndrome Depression Nerve disorder Past Surgical History: Procedure Laterality Date CHOLECYSTECTOMY DILATATION AND CURETTAGE History reviewed. No pertinent family history. Vital Signs BP 138/82 (BP Location: Left arm, Patient Position: Sitting, Cuff Size: Adult) Pulse 78 Temp 97.2 ??F (36.2 ??C) (Temporal) Resp 18 Ht 165.1 cm (65 ) Wt 93.4 kg (206 lb) SpO2 98% BMI 34.28 kg/m?? Estimated body mass index is 34.28 kg/m?? as calculated from the following: Height as of this encounter: 165.1 cm (65 ). Weight as of this encounter: 93.4 kg (206 lb). Facility age limit for growth %david is 20 years. Physical Exam Vitals reviewed. HENT: Head: Normocephalic and atraumatic. Right Ear: Tympanic membrane, ear canal and external ear normal. Left Ear: Ear canal and external ear normal. Nose: Nose normal. Mouth/Throat: Mouth: Mucous membranes are moist. Pharynx: Oropharynx is clear. Eyes: Conjunctiva/sclera: Conjunctivae normal. Pupils: Pupils are equal, round, and reactive to light. Cardiovascular: Rate and Rhythm: Normal rate and regular rhythm. Pulses: Normal pulses. Heart sounds: Normal heart sounds. Pulmonary: Effort: Pulmonary effort is normal. Breath sounds: Normal breath sounds. Abdominal: General: Bowel sounds are normal. There is no distension. Palpations: Abdomen is soft. Tenderness: There is abdominal tenderness. Musculoskeletal: General: Normal range of motion. Cervical back: Neck supple. Skin: General: Skin is warm and dry. Capillary Refill: Capillary refill takes less than 2 seconds. Neurological: Mental Status: She is alert and [...] pH, UA 6.0 5.0 - 8.0 Specific [place], UA 1.015 1.001 - 1.030 Glucose, UA [...] on chronic pancreatitis (Primary) Assessment & Plan: Patient has suffered with acute on chronic pancreatitis for a number of years. She states that triggers are when she does not eat appropriately or rarely drinks socially. He was last evaluated for anacute flare at the [facility] 2 days ago in the emergency department where she receivedpain management and IV fluids. She was sent home with course of oxycodone and Zofran. She is requesting just a couple more days of oxycodone as her pain is persisting. Damian report reviewed and satisfactory. Orders: - promethazine (PHENERGAN) 12.5 MG tablet; Take 1 tablet by mouth Every 6 (Six) Hours As Needed forNausea or Vomiting. Dispense: 10 tablet; Refill: 0 - oxyCODONE (OXY-IR) 5 MG capsule; Take 1 capsule by mouth Every 4 (Four) Hours As Needed for Moderate Pain. Dispense: 10 capsule; Refill: 0 2. Anxiety and depression Assessment & Plan: In regards to her anxiety depression patient has had long-term issues with both anxiety and depression. She relates that Effexor and Latuda both caused suicidal ideation. The last time she was on anytype of medication was 2 years ago. She [...] into our office the next couple of months,she is also given contact information to [facility] 3. Encounter to establish care 4. Nerve damage Assessment & Plan: Patient states she suffered from a bout of compartment syndrome of her right hand several years agorequiring fasciotomy. Since that time she has had significant nerve damage and subsequent pain thathas been treated since that time with pregabalin. DAMIAN report reviewed and satisfactory. Controlled substance agreement reviewed and signed. -Continue pregabalin 100 mg 3 times daily. Orders: - pregabalin (LYRICA) 100 MG capsule; Take 1 capsule by mouth 3 times a day for 30 days. Dispense: 90 capsule; Refill: 0 5. Class 1 obesity due to excess calories without serious comorbidity with body mass index (BMI) of34.0 to 34.9 in adult Assessment & Plan: Patient's (Body mass index is 34.28 kg/m??.) indicates that they are obese (BMI >30) with healthconditions that include none . Weight is unchanged. BMI is above average; BMI management plan is completed. We discussed portion control and increasing exercise. BMI is >= 30 and <35. (Class 1 Obesity). The following options were offered after discussion;: exercise counseling/recommendations and nutrition counseling/recommendations Follow Up Return in about 3 months (around 01/09/2024) for Next scheduled follow up. Lisa Foote APRN documented in this encounter Plan of Treatment Not on file documented as of this encounter Visit Diagnoses Diagnosis Acute on chronic pancreatitis- Primary Anxiety and depression Encounter to establish care Nerve damage Injury to nerves, unspecified site Class 1 obesity due to excess calories without serious comorbidity with body mass index (BMI) of 34.0 to 34.9 in adult documented in this encounter Care Teams Personal Development Educator Relationship Specialty Start Date End Date Lisa Foote APRN [address] [place] [address] PCP - General Family Medicine 10/09/23 documented as of this encounter
--- OUTSIDE RECORDS SUMMARY | 2024-02-03 15:05 | XMS_ITS | Encounter Summary ---
Author Organization [facility] Address [address] [place] [address] Care Team Providers Care Endoscopy Specialty Technician Name Role Phone Lisa Foote LICENSED PHYSICAL THERAPIST ASSISTANT Primary Care Provider [phone] Reason for Visit * Reason Comments ER Hospital follow up Encounter Details Date Type Department Care Team (Late st Contact Info) Description 10/19/2023 9:00 AM EDT Office Visit [facility] [address] [place] [phone] Lisa Foote, LICENSED PHYSICAL THERAPIST ASSISTANT [address] [place] [address] History of alcohol abuse (Primary Dx); Acute on chronic pancreatitis; Anxiety and depression Social History Tobacco Use Types Packs/Day Years Used Date Smoking Tobacco: Every Day Cigarettes Smokeless Tobacco: Never Tobacco Cessation:Ready to Q uit: Not Asked; Counseling Given: Not Answered Alcohol Use Standard Drinks/Week Comments Yes 0 [...] Sign Reading Time Taken Comments Blood Pressure 134/82 10/19/2023 8:49 AM EDT Pulse 74 10/19/2023 8:49 AM EDT Temperature 36.3 ??C (97.4 ??F) 10/19/2023 8:49 AM ED T Respiratory Rate 18 10/19/2023 8:49 AM EDT Oxygen Saturation 98% 10/19/2023 8:49 AM EDT Inhaled Oxygen Concentration - - Weight 93.9 kg (207 lb) 10/19/2023 8:49 AM EDT Height 165.1 cm (5' 5 ) 10/19/2023 8:49 AM EDT Body Mass Index 34.45 10/19/2023 8:49 AM EDT documented in this encounter Progress Notes * Lisa Foote APRN - 10/19/2023 3:36 PM EDTAssociated Problem(s): History of alcohol abuse Heavy abuse for 7 years, has not had alcohol for a couple of months * Lisa Foote APRN - 10/19/2023 9:07 AM EDTAssociated Problem(s): Anxiety and depression During Her [...] and treatment. * Lisa Foote APRN - 10/19/2023 9:06 AM EDTAssociated Problem(s): Acute on chronic pancreatitis presents today for follow-up after two emergency department evaluations for frequent flaring of acute on chronic pancreatitis. Patient last seen by me to establish care 10 days ago. That time she hadjust been in the emergency department 2 days [...] or when she has a rare social drink.Patient returned to the emergency department at [facility] on 10/12 and 10/17 complaints of abdominal pain, nausea and vomiting. Was given IV fluids, labs were obtained with improvement in lipaseon her second visit. She was given promethazine [...] has been evaluated by Dr. Flores in [place] in the past but has not followed up in probably a year and a half. -She is agreeable to referral to gastroenterology at [facility] in [place] specializes inpancreatic disorders. -Patient advised to continue clear liquid diet, prescription given for Protonix as she states it isprovided benefit in the past. She continues to have Zofran and Phenergan available for symptom management as well. Carlyle significant signs of dehydration that require immediate presentation to the ER including decreased urinary output or rapid heart rate. * Lisa Foote APRN - 10/19/2023 9:00 AM EDT Images from the original note were not included. Office Note Name: Lila Mcnally : 1985 Chief Complaint ER Hospital follow up Subjective History of Present Illness: Lila Mcnally is a 37 y.o. female who presents today for follow-up after two emergency [...] years before abstaining from alcohol from the lastseveral months. She states that her pancreatitis is often triggered when she does not eat appropriately or when she has a rare social drink. Patient returned to the emergency department at [facility] on 10/12 and 10/17 complaints of abdominal pain, nausea and vomiting. Was given IV fluids, labswere obtained with improvement in lipase on her second visit. She was given promethazine and Zofranto take at home and advised to continue [...] needing to get back to her children. During Her last visit patient also verbalized [...] therapeutic interventions for further evaluation and treatment. Further complaints or concerns Review of Systems Constitutional: Negative for fatigue. HENT: Negative for sore throat. Eyes: Negative for blurred vision and double vision. Respiratory: Negative for cough and shortness of breath. Cardiovascular: Negative for chest pain, palpitations and leg swelling. Gastrointestinal: Positive for abdominal pain, diarrhea, nausea and vomiting. Endocrine: Negative for polydipsia and polyuria. Genitourinary: Negative for decreased urine volume. Musculoskeletal: Negative for arthralgias and myalgias. Neurological: Positive for weakness and numbness. Negative for dizziness, light- headedness and headache. Psychiatric/Behavioral: Positive for stress. The patient is nervous/anxious. Objective Past Medical History: Diagnosis Date Anxiety Compartment syndrome Depression Nerve disorder Past Surgical History: Procedure Laterality Date CHOLECYSTECTOMY DILATATION AND CURETTAGE History reviewed. No pertinent family history. Vital Signs BP 134/82 (BP Location: Left arm, Patient Position: Sitting, Cuff Size: Adult) Pulse 74 Temp 97.4 ??F (36.3 ??C) (Temporal) Resp 18 Ht 165.1 cm (65 ) Wt 93.9 kg (207 lb) SpO2 98% BMI 34.45 kg/m?? Estimated body mass index is 34.45 kg/m?? as calculated from the following: Height as of this encounter: 165.1 cm (65 ). Weight as of this encounter: 93.9 kg (207 lb). Facility age limit for growth %david [...] is no distension. Palpations: Abdomen is soft. There is no mass. Tenderness: There is abdominal tenderness. There is no rebound. Hernia: No hernia is present. Musculoskeletal: Cervical back: Neck supple. Neurological: Mental Status: She is alert and oriented to person, place, and time. POCT Results (if applicable): Results for orders [...] pH, UA 6.0 5.0 - 8.0 Specific [place], UA 1.015 1.001 - 1.030 Glucose, UA [...] and all orders for this visit: 1. History of alcohol abuse (Primary) Assessment & Plan: Heavy abuse for 7 years, has not had alcohol for a couple of months 2. Acute on chronic pancreatitis Assessment & Plan: presents today for follow-up after two emergency department evaluations for frequent flaring of acute on chronic pancreatitis. Patient last seen by me to establish care 10 days ago. That time she hadjust been in the emergency department 2 days [...] or when she has a rare social drink.Patient returned to the emergency department at [facility] on 10/12 and 10/17 complaints of abdominal pain, nausea and vomiting. Was given IV fluids, labs were obtained with improvement in lipaseon her second visit. She was given promethazine [...] has been evaluated by Dr. Flores in [place] in the past but has not followed up in probably a year and a half. -She is agreeable to referral to gastroenterology at [facility] in [place] specializes inpancreatic disorders. -Patient advised to continue clear liquid diet, prescription given for Protonix as she states it isprovided benefit in the past. She continues to have Zofran and Phenergan available for symptom management as well. Carlyle significant signs of dehydration that require immediate presentation to the ER including decreased urinary output or rapid heart rate. Orders: - pantoprazole (Protonix) 40 MG EC tablet; Take 1 tablet by mouth Daily. Dispense: 90 tablet; Refill: 1 3. Anxiety and depression Assessment & Plan: During [...] therapeutic interventions for further evaluation and treatment. Follow Up No follow-ups on file. Lisa Foote APRN documented in this encounter Plan of Treatment Not on file documented as of this encounter Visit Diagnoses Diagnosis History of alcohol abuse- Primary Nondependent alcohol abuse, in remission Acute on chronic pancreatitis Anxiety and depression documented in this encounter Care Teams Endoscopy Specialty Technician Relationship Specialty Start Date End Date Lisa Foote APRN [address] [place] [phone] PCP - General Family Medicine 10/09/23 documented as of this encounter
--- OUTSIDE RECORDS SUMMARY | 2024-02-03 15:05 | XMS_ITS | Encounter Summary ---
Author Organization [facility] Address [address] [place] [address] Care Team Providers Care Green Meat Packer Name Role Phone Lisa Foote ZIGZAG APPLIQUER Primary Care Provider [phone] Reason for Visit * Reason Comments Med Refill Encounter Details Date Type Department Care Team (Late st Contact Info) Description 12/29/2023 Refill [facility] [address] [place] [phone] Lisa Foote, ZIGZAG APPLIQUER [address] [place] [address] Acute on chronic pancreatitis Social [...] on file documented as of this encounter Plan of Treatment Not on file documented as of this encounter Visit Diagnoses Diagnosis Acute on chronic pancreatitis documented in this encounter Care Teams Green Meat Packer Relationship Specialty Start Date End Date Lisa Foote APRN [address] [place] [phone] PCP - General Family Medicine 10/09/23 documented as of this encounter
--- OUTSIDE RECORDS SUMMARY | 2024-02-03 15:05 | XMS_ITS | Encounter Summary ---
Author Organization [facility] Address [address] [place] [address] Care Team Providers Care Watch Case Polisher Name Role Phone Provider, No Known Primary Care Provider Unavail able Reason for Visit * Reason Comments Knee Pain Encounter Details Date Type Department Care Team (Late st Contact Info) Description 05/26/2017 11:22 PM EDT - 05/27/2017 2:27 AM EDT Emergency [facility] [address] [place] [phone] Mateo Bey MD [address] [facility] [place] [address] Contusion of right knee, initial encounter (Primary Dx); Inflammation of joint of right knee Discharge Disposition: Home or Self Care Social History Tobacco Use Types Packs/Day Years Used Date Smoking Tobacco: Every Day Cigarettes Alcohol Use Standard Drinks/Week Comments Yes 0 (1 standard drink = 0.6 oz pur e alcohol) OCCASIONAL Comments Unknown Sex and Gender Information Value Date Recorded Sex Assigned at Not on file Legal Sex Female 12:53 PM EDT Gender Identity Not on file Sexual Orientation Not on file documented as of this encounter Last Filed Vital Signs Vital Sign Reading Time Taken Comments Blood Pressure 117/88 05/27/2017 2:00 AM EDT Pulse 78 05/27/2017 2:26 AM EDT Temperature 36.5 ??C (97.7 ??F) 05/26/2017 11:06 PM E DT Respiratory Rate 18 05/26/2017 11:06 PM EDT Oxygen Saturation 95% 05/27/2017 2:02 AM EDT Inhaled Oxygen Concentration - - Weight 88.5 kg (195 lb) 05/26/2017 11:06 PM EDT Height 165.1 cm (5' 5 ) 05/26/2017 11:06 PM EDT Body Mass Index 32.45 05/26/2017 11:06 PM EDT documented in this encounter Discharge Instructions * Discharge Instructions* Mateo Bey MD - 05/27/2017 1:32 AM EDT You may remove the immobilizer to change clothes, bathe, or for sleep. You may use your naproxen or ibuprofen along with the Percocet. Return to the ER if any further worrisome problems., * Attachments The following attachments cannot be sent through Care Everywhere. * CRYOTHERAPY (TURKISH) documented in this encounter Medications at Time of Discharge amoxicillin (AMOXIL) 875 MG tablet Take 1 tablet by mouth 2 (Two) Times a Day. 20 tablet 07/04/2016 9 busPIRone (BUSPAR) 10 MG tablet Take 10 mg by mouth 2 (Two) Times a Day. 9 diphenhydrAMINE (BENADRYL) 25 MG tablet Take 1 tablet by mouth Every 6 (Six) Hours As Needed for allergies. 25 tablet 02/24/2016 9 FLUoxetine (PROzac) 20 MG capsule Take 40 mg by mouth Daily. 9 hydrOXYzine (ATARAX) 25 MG tablet Take 1 tablet by mouth Every 6 (Six) Hours As Needed for anxiety. 15 tablet 04/19/2016 9 ibuprofen (ADVIL,MOTRIN) 600 MG tablet Take 1 tablet by mouth Every 8 (Eight) Hours As Needed for Mild Pain (1-3). 15 tablet 05/12/2016 9 ondansetron ODT (ZOFRAN-ODT) 4 MG disintegrating tablet Take 1 tablet by mouth Every 8 (Eight) Hours As Needed for Nausea or Vomiting. 6 tablet 07/04/2016 9 oxyCODONE-acetaminop hen (PERCOCET) 5-325 MG per tablet Take 1 tablet by mouth Every 6 (Six) Hours As Needed for Moderate Pain or Severe Pain . 12 tablet 05/27/2017 9 penicillin v potassium (VEETID) 500 MG tablet Take 1 tablet by mouth 4 (Four) Times a Day. 40 tablet 05/12/2016 9 promethazine (PHENERGAN) 25 MG tablet Take 1 tablet by mouth Every 6 (Six) Hours As Needed for nausea or vomiting. 6 tablet 04/19/2016 9 documented as of this encounter ED Notes * Mateo Bey MD - 05/26/2017 11:25 PM EDT Subjective Ms. Lila Mcnally is a 31 y.o. female who presents to the ED with c/o right knee pain onset 2 weeks ago. Pt reports 6 years ago she had a right knee injury and she has been experiencing sporadic swelling since with last episode being 1 year ago. At onsets of the sporadic swelling, she would take ibuprofen and treat with ice compress, which resolved the sx. For current pain and swelling, ice and ibup rofen have provided no relief. She was performing normal activity at initial onset and denies injury, however the pain has caused decreased ROM and difficulty with ambulance, which caused her to fallseveral days ago on right knee. Post fall, the pain exacerbates severely with movement and this morning right knee presented with ecchymosis and erythema. She reported to [place] where XR was performed, however due to waiting for about 11 hours and not seeing a physician, she left and reported to this ED. Along with knee sx, she complains of nausea and dizziness, however she denies any other acute sx at this time. Pt has never seen orthopedist for prior injury and she denies any anti-coagulant use. Pt has hx of anxiety. LNMP 1 week ago. 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 by: Patient Knee Pain Location: Knee Time since incident: 2 weeks Injury: no Knee location: R knee Pain details: Radiates to: Does not radiate Severity: Severe Onset quality: Sudden Duration: 2 weeks Timing: Constant Progression: Worsening Chronicity: Recurrent Foreign body present: No foreign bodies Prior injury to area: Yes Relieved by: Nothing Worsened by: Bearing weight, extension and flexion Ineffective treatments: Ice (Ibuprofen) Associated symptoms: decreased ROM and swelling Review of Systems Constitutional: Difficulty walking secondary to pain Musculoskeletal: Positive for arthralgias (Right knee pain). Skin: Positive for color change. Ecchymosis and erythema at right knee All other systems reviewed and are negative. Past Medical History: Diagnosis Date ??? Anxiety ??? Compartment syndrome Allergies Allergen Reactions ??? Codeine ??? Morphine And Related ??? Toradol [Ketorolac Tromethamine] ??? Tramadol Past Surgical History: Procedure Laterality Date ??? CHOLECYSTECTOMY ??? DILATATION AND CURETTAGE History reviewed. No pertinent family history. Social History Social History ??? Marital status: Single Social History Main Topics ??? Smoking status: Current Every Day Smoker Packs/day: 0.50 ??? Alcohol use Yes Comment: OCCASIONAL ??? Drug use: No Other Topics Concern ??? Not on file Objective Physical Exam Constitutional: She is oriented to person, place, and time. She appears well- developed and well-nourished. No distress. HENT: Head: Normocephalic and atraumatic. Airway patent. Eyes: Conjunctivae are normal. Neck: Normal range of motion. Pulmonary/Chest: Effort normal. Musculoskeletal: She exhibits edema and tenderness. Right knee: She exhibits decreased range of motion. Right knee extends to about 10 degrees and flexes to about 80 degrees. Swelling and ecchymosis around patella. Most tenderness present at patella and lateral aspects of right knee. No ligamentous instability. Neurological: She is alert and oriented to person, place, and time. Skin: Skin is warm and dry. Ecchymosis noted. There is erythema. Swelling an ecchymosis around patella of right knee. Psychiatric: She has a normal mood and affect. Her behavior is normal. Nursing note and vitals reviewed. Procedures ED Course ED Course Comment By Time DAMIAN report was not available. I believe the medical necessity for and safety in prescribing the controlled substance substantially outweighs the risk of unlawful use or diversion of the controlledsubstance. Mateo Bey MD 05/27 3137 No results found for this or any [...] the services performed during this visit. XR Knee 1 or 2 View Right Final Result No acute findings. THIS DOCUMENT HAS BEEN ELECTRONICALLY SIGNED BY MICAH DRIVER MD Vitals: 05/26/17230505/27/179905/27/1710705/27/17112 BP: 134/88 126/96 BP Location: Left arm Patient Position: Sitting Pulse: 102 72 Resp: 18 Temp: 97.7 ??F (36.5 ??C) TempSrc: Oral SpO2: 99% 100% Weight: 88.5 kg (195 lb) Height: 165.1 cm (65 ) Medications oxyCODONE-acetaminophen (PERCOCET) 5-325 MG per tablet 1 tablet (1 tablet Oral Given 05/27/1748) ondansetron ODT (ZOFRAN-ODT) disintegrating tablet 8 mg (8 mg Oral Given 05/27/17108) ECG/EMG Results (last 24 hours) No results found for the last 24 hours. No results found for this or any [...] the services performed during this visit. XR Knee 1 or 2 View Right Final Result No acute findings. THIS DOCUMENT HAS BEEN ELECTRONICALLY SIGNED BY MICAH DRIVER MD Vitals: 05/26/17230505/27/179905/27/1710705/27/17112 BP: 134/88 126/96 BP Location: Left arm Patient Position: Sitting Pulse: 102 72 Resp: 18 Temp: 97.7 ??F (36.5 ??C) TempSrc: Oral SpO2: 99% 100% Weight: 88.5 kg (195 lb) Height: 165.1 cm (65 ) Medications oxyCODONE-acetaminophen (PERCOCET) 5-325 MG per tablet 1 tablet (1 tablet Oral Given 05/27/1748) ondansetron ODT (ZOFRAN-ODT) disintegrating tablet 8 mg (8 mg Oral Given 05/27/17 0109) ECG/EMG Results (last 24 hours) No results found for the last 24 hours. [facility] Final diagnoses: Contusion of right knee, initial encounter Inflammation of joint of right knee Documentation assistance provided by marcinibYamileth Garcia. Information recorded by the scribe was done at my direction and has been verified and validated by me. Toni Garcia 05/26/17 2346 Mateo Bey MD 05/27/17 0136 documented in this encounter Plan of Treatment Not on file documented as of this encounter Procedures Procedure Name Priority Date/Time Associated Diagnosis Comments XR KNEE 1 OR 2 VW RIGHT STAT 05/27/2017 12:48 AM EDT documented in this encounter Results * XR Knee 1 or 2 View Right (05/27/2017 12:48 AM EDT) Anatomical Region Laterality Modality Lower Extremities, Knee Right [facility] Imaging 05/26/2017 11:4 0 PM EDT Impressions 05/27/2017 1:15 AM EDT ??No acute findings. THIS DOCUMENT HAS BEEN ELECTRONICALLY SIGNED BY MICAH DRIVER MD Narrative 05/27/2017 1:15 AM EDT EXAM: ??XR Right Knee, 1 or 2 views CLINICAL HISTORY: ??31 years old, female; Injury or trauma; Fall; Initial encounter; Abrasion and swelling (edema); Knee; Right; Additional info: Trauma, pain TECHNIQUE: ??Frontal and/or lateral views of the right knee. COMPARISON: ??No relevant prior studies available. FINDINGS: ??Bones/joints: ??Unremarkable. ??No fracture or dislocation. ??Soft tissues: ??Unremarkable. Procedure Note Micah Driver MD - 05/27/2017 EXAM: XR Right Knee, 1 or 2 views CLINICAL HISTORY: 31 years old, female; Injury or trauma; Fall; Initial encounter;Abrasion and swelling (edema); Knee; Right; Additional info: Trauma, pain TECHNIQUE: Frontal and/or lateral views of the right knee. COMPARISON: No relevant prior studies available. FINDINGS: Bones/joints: Unremarkable. No fracture or dislocation. Soft tissues: Unremarkable. IMPRESSION: No acute findings. THIS DOCUMENT HAS BEEN ELECTRONICALLY SIGNED BY MICAH DRIVER MD us Mateo Bey MD IMG DIAGNOSTIC IMAGING ORDERAB LES Final Result documented in this encounter Visit Diagnoses Diagnosis Contusion of right knee, initial encounter- Primary Inflammation of joint of right knee documented in this encounter Administered Medications Inactive Administered Medications - up to 3 most recent administrations Medication Order MAR Action Action Date Dose Rate Site ondansetron ODT (ZOFRAN-ODT) disintegrating tablet 8 mg 8 mg, Oral, Once, On Thu05/27/17 at 0100, For 1 dose, Place on tongue and allow to dissolve. Given 05/27/2017 1:09 AM EDT 8 mg oxyCODONE-acetaminophen (PERCOCET) 5-325 MG per tablet 1 tablet 1 tablet, Oral, Once, On Thu05/26/17 at 2343, For 1 dose, Do not exceed 4 grams of acetaminophen in a 24 hr period. If given for pain, use the following pain scale: Mild Pain = Pain Score of 1-3, CPOT 1-2 Moderate Pain = Pain Score of 4-6, CPOT 3-4 Severe Pain = Pain Score of 7-10, CPOT 5-8 Given 05/27/2017 12:49 AM EDT 1 tablet documented in this encounter Active and Recently Administered Medications Times are shown in EDT. Scheduled Medication Order 05/25/2017 05/26/2017 05/27/2017 ondansetron ODT (ZOFRAN-ODT) disintegrating tablet 8 mg (COMPLETED) 8 mg, Oral, Once, On Thu05/27/17 at 0100, For 1 dose, Place on tongue and allow to dissolve. 0109 (Given - Provid er: Peri Lewis RN) oxyCODONE-acetaminophen (PERCOCET) 5-325 MG per tablet 1 tablet (COMPLETED) 1 tablet, Oral, Once, On Thu05/26/17 at 2343, For 1 dose, Do not exceed 4 grams of acetaminophen in a 24 hr period. If given for pain, use the following pain scale: Mild Pain = Pain Score of 1-3, CPOT 1-2 Moderate Pain = Pain Score of 4-6, CPOT 3-4 Severe Pain = Pain Score of 7-10, CPOT 5-8 0049 (Given - Provid er: Peri Lewis RN) documented in this encounter Care Teams Watch Case Polisher Relationship Specialty Start Date End Date Provider, No Known [facility] [place] [address] PCP - General 02/18/16 09/30/18 documented as of this encounter
--- OUTSIDE RECORDS SUMMARY | 2024-02-03 15:05 | XMS_ITS | Encounter Summary ---
Author Organization [facility] Address [address] [place] [address] Care Team Providers Care Telecommunication Systems Designer Name Role Phone QamarLisa mckeon Beatriz ORELLANA Primary Care Provider [phone]- [phone] Encounter Details Date Type Department Care Team (Late st Contact Info) Description 01/26/2024 Transitional Care Management Telephone Encounter [facility] [address] [place] [phone] Asiya Barnes, RN Social History Tobacco [...] Note - Asiya Barnes, RN - 01/26/2024 11:39 AM EST Images from the original note were not included. Call Center TCM Note Flowsheet Row Responses Sabianism facility patient discharged from? Non-[facility] [[facility]] Does the patient have one of the following disease processes/diagnoses(primary or secondary)? Other TCM attempt successful? No Unsuccessful attempts Attempt 2 [Attempted to reach patient, mother Asiya and sig other Napoleon, listed on PCP verbal release. NO answer.] Asiya Barnes RN 01/26/2024, 11:42 EST documented in this encounter Plan of Treatment Not on file documented as of this encounter Visit Diagnoses Not on filedocumented in this encounter Care Teams Telecommunication Systems Designer Relationship Specialty Start Date End Date Lisa Foote, ESTEBAN [address] [place], [place] [phone] PCP - General Family Medicine 10/09/23 documented as of this encounter
--- OUTSIDE RECORDS SUMMARY | 2024-02-03 15:05 | XMS_ITS | Encounter Summary ---
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 Non- Does the patient have one of the following disease processes/diagnoses(primary or secondary)? Other TCM attempt successful? Yes Call start time 1309 Call end time 1311 Discharge diagnosis Abdominal pain Meds reviewed with patient/caregiver? Yes Is the patient having any side effects they believe may be caused by any medication additions or changes? No Does the patient have all medications ordered at discharge? Yes Is the patient taking all medications as directed (includes completed medication regime)? Yes Comments [facility] on 11/02/23 with PCP Does the patient have an appointment with their PCP within 7-14 days of discharge? Yes Has home health visited the patient within 72 hours of discharge? N/A Psychosocial issues? No Did the patient receive a copy of their discharge instructions? Yes Nursing interventions Reviewed instructions with patient What is the patient's perception of their health status since discharge? Improving Is the patient/caregiver able to teach back signs and symptoms related to disease process for when to call PCP? Yes Is the patient/caregiver able to teach back signs and symptoms related to disease process for when to call 911? Yes Is the patient/caregiver able to teach back the hierarchy of who to call/visit for symptoms/problems? PCP, Specialist, Home health nurse, Urgent Care, ED, 911 Yes If the patient is a current smoker, are they able to teach back resources for cessation? [id number] TCM call completed? Yes Call end time 1311 Svetlana Mcclure RN 10/29/2023, 13:11 EDT documented in this encounter Plan of Treatment Not on file documented as of this encounter Visit Diagnoses Not on filedocumented in this encounter Care Teams Lidding Machine Operator Relationship Specialty Start Date End Date Lisa Foote APRN [address] [place] [address] PCP - General Family Medicine 10/09/23 documented as of this encounter
--- OUTSIDE RECORDS SUMMARY | 2024-02-03 15:05 | XMS_ITS | Encounter Summary ---
Author Organization [facility] Address [address] [place] [address] Care Team Providers Care Chicken Raiser Name Role Phone Elmo Escobar MD Primary Care Provider [phone] Reason for Visit * Reason Comments Abdominal Pain Encounter Details Date Type Department Care Team (Late st Contact Info) Description 10/08/2022 10:43 PM EDT - 10/09/2022 2:48 AM EDT Emergency [facility] [address] [place] [id number] Dez Rice DO [address] [facility] [place] [address] Left upper quadrant abdominal pain (Primary Dx); Nausea and vomiting, unspecified vomiting type Discharge Disposition: Home or Self Care Social [...] Sign Reading Time Taken Comments Blood Pressure 141/84 10/09/2022 2:00 AM EDT Pulse 86 10/09/2022 2:00 AM EDT Temperature 36.6 ??C (97.8 ??F) 10/08/2022 6:29 PM ED T Respiratory Rate 18 10/08/2022 6:29 PM EDT Oxygen Saturation 98% 10/09/2022 2:00 AM EDT Inhaled Oxygen Concentration - - Weight 109 kg (240 lb) 10/08/2022 6:29 PM EDT Height 165.1 cm (5' 5 ) 10/08/2022 6:29 PM EDT Body Mass Index 39.94 10/08/2022 6:29 PM EDT documented in this encounter Discharge Instructions * Attachments The following attachments cannot be sent through Care Everywhere. * Abdominal Pain Adult (Armenian) documented in this encounter Medications at Time of Discharge acetaminophen (TYLENOL) 500 MG tablet Take 2 tablets by mouth Every 6 (Six) Hours As Needed. famotidine (PEPCID) 20 MG tablet Take 1 tablet by mouth 2 (Two) Times a Day. 10 tablet 10/09/2022 ibuprofen (ADVIL,MOTRIN) 800 MG tablet Take 1 tablet by mouth 3 (Three) Times a Day With Meals. 15 tablet 10/02/2018 ondansetron ODT (ZOFRAN-ODT) [address] 1 tablet on the tongue 4 (Four) Times a Day As Needed for Nausea or Vomiting. 8 tablet 10/09/2022 lidocaine (LIDODERM) 5 % Apply 1 patch topically to the appropriate area as directed. 10/09/19 24 lurasidone (LATUDA) 40 MG tablet tablet Take 40 mg by mouth Daily. 10/09/19 24 Melatonin 10 MG tablet Take 10 tablets by mouth. 10/09/19 24 pancrelipase, Cbk-Uihs-Esss, (CREON) 09945-65440 units capsule delayed-release particles capsule Take 2 capsules by mouth. 10/09/19 24 pantoprazole (PROTONIX) 40 MG EC tablet Take 40 mg by mouth. 04/20/2021 10/09/19 24 PREDNISONE PO Take by mouth. 0 24 pregabalin (LYRICA) 300 MG capsule Take 1 capsule by mouth. 04/24/2021 10/09/19 24 sucralfate (CARAFATE) 1 g tablet Take 1 tablet by mouth 4 (Four) Times a Day. 20 tablet 10/09/2022 10/09/19 24 venlafaxine XR (EFFEXOR-XR) 150 MG 24 hr capsule Take 1 capsule by mouth Daily. 10/09/19 24 documented as of this encounter ED Notes * Dez Rice, - 10/08/2022 7:01 PM EDT Subjective History of Present Illness Patient is a pleasant 36-year-old female with a distant history of gallstone pancreatitis in the distant past who presents today with epigastric and left upper quadrant abdominal pain. Pain began 11 PM yesterday evening and is gotten progressively worse. 5 episodes of vomiting throughout the day today. Rates the pain as severe. Nonradiating. No obvious aggravating or alleviating factors. Denies definitive fever, chest pain, or difficulty breathing. Review of Systems All other systems reviewed and are negative. Past Medical History: Diagnosis Date Anxiety Compartment syndrome Allergies Allergen Reactions Codeine Droperidol Other (See Comments) JAW WEAKNESS Toradol [Ketorolac Tromethamine] Tramadol Past Surgical History: Procedure Laterality Date CHOLECYSTECTOMY DILATATION AND CURETTAGE No family history on file. Social History Socioeconomic History Marital status: Single Tobacco Use Smoking status: Every Day Packs/day: 0.50 Types: Cigarettes Substance and Sexual Activity Alcohol use: Yes Comment: OCCASIONAL Drug use: No Objective Physical Exam Vitals and nursing note reviewed. Constitutional: Appearance: She is well-developed. Comments: Appears uncomfortable but is in no significant distress. HENT: Head: Normocephalic and atraumatic. Eyes: Conjunctiva/sclera: Conjunctivae normal. Pupils: Pupils are equal, round, and reactive to light. Cardiovascular: Rate and Rhythm: Normal rate and regular rhythm. Heart sounds: Normal heart sounds. Pulmonary: Effort: Pulmonary effort is normal. No respiratory distress. Breath sounds: Normal breath sounds. Abdominal: General: Bowel sounds are normal. There is no distension. Palpations: Abdomen is soft. There is no mass. Tenderness: There is abdominal tenderness in the epigastric area and left upper quadrant. There is no rebound. Hernia: No hernia is present. Musculoskeletal: General: Normal range of motion. Cervical back: Normal range of motion and neck supple. Skin: General: Skin is warm and dry. Capillary Refill: Capillary refill takes less than 2 seconds. Neurological: General: No focal deficit present. Mental Status: She is alert and oriented to person, place, and time. Psychiatric: Mood and Affect: Mood normal. Mood is not anxious. Behavior: Behavior normal. Procedures ED Course Recent Results (from the past 24 hour(s)) Comprehensive Metabolic Panel Collection Time: 10/08/22 8:15 PM Specimen: Blood Result Value Ref Range Glucose [...] 15.0 mmol/L eGFR 119.3 >60.0 mL/min/1.73 Lipase Collection Time: 10/08/22 8:15 PM Specimen: Blood Result Value Ref Range Lipase 82 (H) 13 - 60 U/L Lactic Acid, Plasma Collection Time: 10/08/22 8:15 PM Specimen: Blood Result Value Ref Range Lactate 2.3 (C) 0.5 - 2.0 mmol/L Green Top (Gel) Collection Time: 10/08/22 8:15 PM Result Value Ref Range Extra Tube Hold for add-ons. Lavender Top Collection Time: 10/08/22 8:15 PM Result Value Ref Range Extra Tube hold for add-on Gold Top - SST Collection Time: 10/08/22 8:15 PM Result Value Ref Range Extra Tube Hold for add-ons. Gunter Top Collection Time: 10/08/22 8:15 PM Result Value Ref Range Extra Tube Hold for add-ons. Light Blue Top Collection Time: 10/08/22 8:15 PM Result Value Ref Range Extra Tube Hold for add-ons. CBC Auto Differential Collection Time: 10/08/22 8:15 PM Specimen: Blood Result Value Ref Range WBC [...] nRBC 0.0 0.0 - 0.2 /100 WBC Urinalysis With Microscopic If Indicated (No Culture) - Urine, Clean Catch Collection Time: 10/08/22 8:33 PM Specimen: Urine, Clean Catch Result Value Ref Range Color, UA Yellow Yellow, Straw Appearance, UA Clear Clear pH, UA 6.0 5.0 - 8.0 Specific [place], UA 1.015 1.001 - 1.030 Glucose, UA Negative Negative Ketones, UA Negative Negative Bilirubin, UA Negative Negative Blood, UA Negative Negative Protein, UA Negative Negative Leuk Esterase, UA Negative Negative Nitrite, UA Negative Negative Urobilinogen, UA 0.2 E.U./dL 0.2 - 1.0 E.U./dL POC Urine Collection Time: 10/08/22 8:34 PM Specimen: Urine Result Value Ref Range HCG, Urine, QL Negative Negative Lot Number [id number] Internal Positive Control Passed Positive, Passed Internal Negative Control Passed Negative, Passed Expiration Date STAT Lactic Acid, Reflex Collection Time: 10/08/22 11:26 PM Specimen: Blood Result Value Ref Range Lactate 2.2 (C) 0.5 - 2.0 mmol/L Note: In addition to lab results from this visit, the labs listed above may include labs taken at another facility or during a different encounter within the last 24 hours. Please correlate lab timeswith ED admission and discharge times for further clarification of the services performed during this visit. CT Abdomen Pelvis With Contrast Final Result Impression: Mild hepatic steatosis No definite acute CT abnormalities in the abdomen or pelvis Electronically Signed: Uche Alanis MD 10/08/2022 9:11 PM EDT Workstation ID: [id number] Vitals: 10/09/22 0030 10/09/22 0100 10/09/22 0130 10/09/22 0200 BP: 159/96 143/100 134/96 141/84 Pulse: 79 90 91 86 Resp: Temp: TempSrc: SpO2: 97% 98% 99% 98% Weight: Height: Medications sodium chloride 0.9 % bolus 1,000 mL (0 mL Intravenous Stopped 10/08/222) ondansetron (ZOFRAN) injection 4 mg (4 mg Intravenous Given 10/08/222012) famotidine (PEPCID) injection 20 mg (20 mg Intravenous Given 10/08/222012) pantoprazole (PROTONIX) EC tablet 40 mg (40 mg Oral Given 10/08/222012) sucralfate (CARAFATE) tablet 1 g (1 g Oral Given 10/08/222012) iopamidol (ISOVUE-300) 61 % injection 100 mL (84 mL Intravenous Given 10/08/222050) ondansetron (ZOFRAN) injection 4 mg (4 mg Intravenous Given 10/08/222313) diphenhydrAMINE (BENADRYL) injection 25 mg (25 mg Intravenous Given 10/09/22 013) metoclopramide (REGLAN) injection 10 mg (10 mg Intravenous Given 10/09/22 0146) sodium chloride 0.9 % bolus 1,000 mL (0 mL Intravenous Stopped 10/09/22 023) ECG/EMG Results (last 24 hours) No results found for the last 24 hours. No orders to display Medical Decision Making Patient symptoms persisted through much of her ED stay. Fortunately, following additional treatmentwith Benadryl and Reglan her symptoms have significantly improved. She feels much better at this time. Work-up is also reassuring. Patient's had recurrent episodes of abdominal pain without a clear etiology. She is followed by gastroenterology, Jassi Flores. I have recommended that [facility] return [facility] for [facility] recurrent issues as from an emergency department standpoint the results are reassuring. We did discuss the lactic acid and the importance of hydration. She will take medication as prescribed and have a low threshold to return to the emergency department if symptoms persist, worsen, orother concerns arise. Findings and plan also discussed with patient's mother who is also comfortable with discharge at this time. Problems Addressed: Left upper quadrant abdominal pain: complicated acute illness or injury Nausea and vomiting, unspecified vomiting type: complicated acute illness or injury Amount and/or Complexity of Data Reviewed External Data Reviewed: notes. Labs: ordered. Decision-making details documented in ED Course. Radiology: ordered and independent interpretation performed. Decision-making details documented in ED Course. Risk Prescription drug management. Final diagnoses: Left upper quadrant abdominal pain Nausea and vomiting, unspecified vomiting type ED Disposition ED Disposition ED Disposition Discharge Condition Stable Comment -- DISCHARGE Patient discharged in stable condition. Reviewed [...] with a physician of their choice. FOLLOW-UP Elmo Escobar MD [address] [phone] Schedule an appointment as soon as possible for a visit [facility] EM[facility]GENCY DEPARTMENT [address] [facility] [address] Medication List New Prescriptions famotidine 20 MG tablet Commonly known as: PEPCID Take 1 tablet by mouth 2 (Two) Times a Day. ondansetron ODT 4 MG disintegrating tablet Commonly known as: ZOFRAN-ODT Place 1 tablet on the tongue 4 (Four) Times a Day As Needed for Nausea or Vomiting. sucralfate 1 g tablet Commonly known as: CARAFATE Take 1 tablet by mouth 4 (Four) Times a Day. Where to Get Your Medications These medications were sent to [facility] - [place], [place] - [address] [facility] - [phone] [place] [phone] [address] famotidine 20 MG tablet ondansetron ODT 4 MG disintegrating tablet sucralfate 1 g tablet Dez Rice DO 10/09/22 1036 documented in this encounter Plan of Treatment Not on file documented as of this encounter Procedures Procedure Name Priority Date/Time Associated Diagnosis Comments LACTIC ACID, REFLEX STAT 10/08/2022 1 1:[address] ABDOMEN PELVIS W CONTRAST STAT 10/08/2022 8:50 PM EDT POCT PEFORM URINE STAT 10/08/2022 8:34 PM EDT URINALYSIS W/ MICROSCOPIC IF INDICATED (NO CULTURE) STAT 10/08/2022 8:33 PM EDT GUNTER TOP STAT 10/08/2022 8:15 PM EDT GOLD TOP - SST STAT 10/08/2022 8:15 PM EDT DK GREEN TOP STAT 10/08/2022 8:15 PM EDT CBC WITH AUTO DIFFERENTIAL STAT 10/08/2022 8:15 PM EDT LAVENDER TOP STAT 10/08/2022 8:15 PM EDT LIGHT BLUE TOP STAT 10/08/2022 8:15 PM EDT RAINBOW DRAW STAT 10/08/2022 8:15 PM EDT CBC AND DIFFERENTIAL STAT 10/08/2022 8:15 PM EDT LIPASE STAT 10/08/2022 8:15 PM EDT LACTIC ACID, PLASMA STAT 10/08/2022 8 :15 PM EDT COMPREHENSIVE METABOLIC PANEL STAT 10/08/2022 8:15 PM EDT documented in this encounter Results * (ABNORMAL) STAT Lactic Acid, Reflex (10/08/2022 11:26 PM EDT) Lactate 2.2(HH) 0.5 - 2.0 mmol/L 10/09/2022 12:14 AM EDT [facility] Comment:Falsely depressed re sults may occur on samples drawn from patients receiving N-Acetylcysteine (NAC) or Metamizole. Blood Line / Unknown 10/08/2022 11 :26 PM EDT 10/08/2022 11:48 PM EDT us Dez Rice DO LAB BLOOD ORDERABLES Final Resul t [facility]
[address] [place] [address], [place] [phone] * CT Abdomen Pelvis With Contrast (10/08/2022 8:50 PM EDT) Anatomical Region Laterality Modality Abdomen, Pelvis N/A Computed Tomogra phy 10/08/2022 9:03 PM EDT Impressions 10/08/2022 9:11 PM EDT Impression: Mild hepatic steatosis No definite acute CT abnormalities in the abdomen or pelvis Electronically Signed: Uche Alanis MD 10/08/2022 9:11 PM EDT Workstation ID: [id number] Narrative 10/08/2022 9:[address] ABDOMEN PELVIS W CONTRAST Date of Exam: 10/08/2022 8:46 PM EDT Indication: LUQ, upper abd pain, hx pancreatitis. Comparison: CT abdomen pelvis dated 04/19/2016 Technique: Axial CT images were obtained of the abdomen and pelvis following the uneventful intravenous administration of intravenous contrast. Reconstructed coronal and sagittal images were also obtained. Automated exposure control and iterative construction methods were used. Findings: Lung Bases: ?? The visualized lung bases and lower mediastinal structures are unremarkable. Liver: The liver shows mild diffuse decreased density compatible with fatty replacement Biliary/Gallbladder: Cholecystectomy changes. There is no biliary dilatation. Spleen:Spleen is normal in size and CT density. Pancreas: Pancreas shows homogeneous density. There is no evidence of pancreatic mass or peripancreatic fluid. Kidneys: Kidneys are normal in size. There are no stones or hydronephrosis. Adrenals: Adrenal glands are unremarkable. Retroperitoneal/Lymph Nodes/Vasculature: No retroperitoneal adenopathy is identified by size criteria. Gastrointestinal/Mesentery: The bowel loops are non-dilated without definite wall thickening or mass. The appendix appears within normal limits. No evidence of obstruction. No free air. Bladder: The bladder is unremarkable No acute abnormalities in the pelvis Bony Structures: ??Visualized bony structures are consistent with the patient's age. Procedure Note Uche Alanis MD - 10/08/2022 CT ABDOMEN PELVIS W CONTRAST Date of Exam: 10/08/2022 8:46 PM EDT Indication: LUQ, upper abd pain, hx pancreatitis. Comparison: CT abdomen pelvis dated 04/19/2016 Technique: Axial CT images were obtained of the abdomen and pelvisfollowing the uneventful intravenous administration of intravenouscontrast. Reconstructed coronal and sagittal images were also obtained.Automated exposure control and iterative construction methods were used. Findings: Lung Bases: The visualized lung bases and lower mediastinal structures areunremarkable. Liver: The liver shows mild diffuse decreased density compatible withfatty replacement Biliary/Gallbladder: Cholecystectomy changes. There is no biliarydilatation. Spleen:Spleen is normal in size and CT density. Pancreas: Pancreas shows homogeneous density. There is no evidence of pancreaticmass or peripancreatic fluid. Kidneys: Kidneys are normal in size. There are no stones orhydronephrosis. Adrenals: Adrenal glands are unremarkable. Retroperitoneal/Lymph Nodes/Vasculature: No retroperitoneal adenopathy isidentified by size criteria. Gastrointestinal/Mesentery: The bowel loops are non-dilated withoutdefinite wall thickening or mass. The appendix appears within normallimits. No evidence of obstruction. No free air. Bladder: The bladder is unremarkable No acute abnormalities in the pelvis Bony Structures: Visualized bony structures are consistent with thepatient's age. IMPRESSION: Impression: Mild hepatic steatosis No definite acute CT abnormalities in the abdomen or pelvis Electronically Signed: Uche Alanis MD 10/08/2022 9:11 PM EDT Workstation ID: [id number] us Dez Rice DO IMG CT ORDERABLES Final Result * POC Urine (10/08/2022 8:34 PM EDT) HCG, Urine, QL Negative Negative [facility] Lot Number [id number] [facility] Internal Positive Control Passed Positive, Passed [facility] Internal Negative Control Passed Negative, Passed [facility] Expiration Date , [facility] Urine 10/08/2022 8:34 PM EDT us Dez Belcher DO POINT OF CARE TEST ORDERABLES Fi nal Result [facility]
[address] [place] [address], * Urinalysis With Microscopic If Indicated (No Culture) - Urine, Clean Catch (10/08/2022 8:33 PM EDT) Color, UA Yellow Yellow, Straw 10/08/2022 8:44 PM EDT [facility] Appearance, UA Clear Clear 10/08/2022 8:44 PM EDT [facility] pH, UA 6.0 5.0 - 8.0 10/08/2022 8:44 PM EDT [facility] Specific [place], UA 1.015 1.001 - 1.030 10/08/2022 8:44 PM EDT [facility] Glucose, UA Negative Negative 10/08/2022 8:44 PM EDT [facility] Ketones, UA Negative Negative 10/08/2022 8:44 PM EDT [facility] Bilirubin, UA Negative Negative 10/08/2022 8:44 PM EDT [facility] Blood, UA Negative Negative 10/08/2022 8:44 PM EDT [facility] Protein, UA Negative Negative 10/08/2022 8:44 PM EDT [facility] Leuk Esterase, UA Negative Negative 10/08/2022 8:44 PM EDT [facility] Nitrite, UA Negative Negative 10/08/2022 8:44 PM EDT [facility] Urobilinogen, UA 0.2 E.U./dL 0.2 - 1.0 E.U./dL 10/08/2022 8:44 PM EDT [facility] Urine Urine specimen obtained by clean catch procedure / Unknown Collection / Unknown 10/08/2022 8:33 PM EDT 10/08/2022 8:41 PM EDT Narrative [facility] - 10/08/2022 8:44 PM EDT Urine microscopic not indicated. us Dez Rice DO URINE ORDERABLES Final Result [facility]
[address] [place] [address], * (ABNORMAL) CBC Auto Differential (10/08/2022 8:15 PM EDT) WBC 5.77 3.40 - 10.80 10*3/mm3 10/08/2022 8:26 PM EDT [facility] RBC 4.69 3.77 - 5.28 10*6/mm3 10/08/2022 8:26 PM EDT [facility] Hemoglobin 12.3 12.0 - 15.9 g/dL 10/08/2022 8:26 PM EDT [facility] Hematocrit 38.3 34.0 - 46.6 % 10/08/2022 8:26 PM EDT [facility] MCV 81.7 79.0 - 97.0 fL 10/08/2022 8:26 PM EDT [facility] MCH 26.2(L) 26.6 - 33.0 pg 10/08/2022 8:26 PM EDT [facility] MCHC 32.1 31.5 - 35.7 g/dL 10/08/2022 8:26 PM EDT [facility] RDW 15.3 12.3 - 15.4 % 10/08/2022 8:26 PM EDT [facility] RDW-SD 45.7 37.0 - 54.0 fl 10/08/2022 8:26 PM EDT [facility] MPV 10.3 6.0 - 12.0 fL 10/08/2022 8:26 PM EDT [facility] Platelets 262 140 - 450 10*3/mm3 10/08/2022 8:26 PM EDT [facility] Neutrophil % 53.2 42.7 - 76.0 % 10/08/2022 8:26 PM EDT [facility] Lymphocyte % 38.0 19.6 - 45.3 % 10/08/2022 8:26 PM EDT [facility] Monocyte % 5.7 5.0 - 12.0 % 10/08/2022 8:26 PM EDT [facility] Eosinophil % 1.2 0.3 - 6.2 % 10/08/2022 8:26 PM EDT [facility] Basophil % 1.4 0.0 - 1.5 % 10/08/2022 8:26 PM EDT [facility] Immature Grans % 0.5 0.0 - 0.5 % 10/08/2022 8:26 PM EDT [facility] Neutrophils, Absolute 3.07 1.70 - 7.00 10*3/mm3 10/08/2022 8:26 PM EDT [facility] Lymphocytes, Absolute 2.19 0.70 - 3.10 10*3/mm3 10/08/2022 8:26 PM EDT [facility] Monocytes, Absolute 0.33 0.10 - 0.90 10*3/mm3 10/08/2022 8:26 PM EDT [facility] Eosinophils, Absolute 0.07 0.00 - 0.40 10*3/mm3 10/08/2022 8:26 PM EDT [facility] Basophils, Absolute 0.08 0.00 - 0.20 10*3/mm3 10/08/2022 8:26 PM EDT [facility] Immature Grans, Absolute 0.03 0.00 - 0.05 10*3/mm3 10/08/2022 8:26 PM EDT [facility] nRBC 0.0 0.0 - 0.2 /100 WBC 10/08/2022 8:26 PM EDT [facility] Blood Venipuncture / Unknown 10/08/2022 8:15 PM EDT 10/08/2022 8:20 PM EDT us Dez Rice DO LAB BLOOD ORDERABLES Final Resul t [facility]
[address] [place] [address], * Light Blue Top (10/08/2022 8:15 PM EDT) Extra Tube Hold for add-ons. 10/08/2022 9:17 PM EDT [facility] Comment:Auto resulted Blood Venipuncture / Unknown 10/08/2022 8:15 PM EDT 10/08/2022 8:20 PM EDT us Dez Belcher DO LAB BLOOD ORDER ONLY Final Resul t Performing Organization Address [facility] Co de Phone Number [facility]
[address] [place] [address], [place] [phone] * Gunter Top (10/08/2022 8:15 PM EDT) Extra Tube Hold for add-ons. 10/09/2022 12:16 AM EDT [facility] Comment:Auto resulted. Blood Venipuncture / Unknown 10/08/2022 8:15 PM EDT 10/08/2022 8:20 PM EDT us Dez Belcher DO LAB BLOOD ORDER ONLY Final Resul t Performing Organization Address [facility] Co de Phone Number [facility]
[address] [place] [address], [place] [phone] * Gold Top - SST (10/08/2022 8:15 PM EDT) Extra Tube Hold for add-ons. 10/08/2022 9:17 PM EDT [facility] Comment:Auto resulted. Blood Venipuncture / Unknown 10/08/2022 8:15 PM EDT 10/08/2022 8:20 PM EDT us Dez Belcher DO LAB BLOOD ORDER ONLY Final Resul t Performing Organization Address [facility] de Phone Number [facility]
[address] [place] [address], [place] [phone] * Lavender Top (10/08/2022 8:15 PM EDT) Extra Tube hold for add-on 10/08/2022 9:17 PM EDT [facility] Comment:Auto resulted Blood Venipuncture / Unknown 10/08/2022 8:15 PM EDT 10/08/2022 8:20 PM EDT us Dez Belcher DO LAB BLOOD ORDER ONLY Final Resul t Performing Organization Address [facility] de Phone Number [facility]
[address] [place] [address], * Green Top (Gel) (10/08/2022 8:15 PM EDT) Extra Tube Hold for add-ons. 10/08/2022 9:17 PM EDT [facility] Comment:Auto resulted. Blood Venipuncture / Unknown 10/08/2022 8:15 PM EDT 10/08/2022 8:20 PM EDT us Dez Belcher DO LAB BLOOD ORDER ONLY Final Resul t Performing Organization Address [facility] Phone Number [facility]
[address] [place] [address], * (ABNORMAL) Lactic Acid, Plasma (10/08/2022 8:15 PM EDT) Pathologist [facility] Lactate 2.3(HH) 0.5 - 2.0 mmol/L 10/08/2022 8:43 PM EDT [facility] Comment:Falsely depressed re sults may occur on samples drawn from patients receiving N-Acetylcysteine (NAC) or Metamizole. Blood Venipuncture / Unknown 10/08/2022 8:15 PM EDT 10/08/2022 8:20 PM EDT us Dez Belcher DO LAB BLOOD ORDERABLES Final Resul t Performing Organization Address [facility] de Phone Number [facility]
[address] [place] [address], * (ABNORMAL) Lipase (10/08/2022 8:15 PM EDT) Lipase 82(H) 13 - 60 U/L 10/08/2022 8:45 PM EDT [facility] Blood Venipuncture / Unknown 10/08/2022 8:15 PM EDT 10/08/2022 8:20 PM EDT us Dez Rice DO LAB BLOOD ORDERABLES Final Resul t [facility]
[address] [place] [address], * (ABNORMAL) Comprehensive Metabolic Panel (10/08/2022 8:15 PM EDT) Glucose 141(H) 65 - 99 mg/dL 10/08/2022 8:45 PM EDT [facility] BUN 7 6 - 20 mg/dL 10/08/2022 8:45 PM EDT [facility] Creatinine 0.62 0.57 - 1.00 mg/dL 10/08/2022 8:45 PM EDT [facility] Sodium 142 136 - 145 mmol/L 10/08/2022 8:45 PM EDT [facility] Potassium 3.6 3.5 - 5.2 mmol/L 10/08/2022 8:45 PM EDT [facility] Chloride 105 98 - 107 mmol/L 10/08/2022 8:45 PM EDT [facility] CO2 21.0(L) 22.0 - 29.0 mmol/L 10/08/2022 8:45 PM EDT [facility] Calcium 9.4 8.6 - 10.5 mg/dL 10/08/2022 8:45 PM EDT [facility] Total Protein 7.5 6.0 - 8.5 g/dL 10/08/2022 8:45 PM EDT [facility] Albumin 4.3 3.5 - 5.2 g/dL 10/08/2022 8:45 PM EDT [facility] ALT (SGPT) 25 1 - 33 U/L 10/08/2022 8:45 PM EDT [facility] AST (SGOT) 20 1 - 32 U/L 10/08/2022 8:45 PM EDT [facility] Alkaline Phosphatase 108 39 - 117 U/L 10/08/2022 8:45 PM EDT [facility] Total Bilirubin 0.3 0.0 - 1.2 mg/dL 10/08/2022 8:45 PM EDT [facility] Globulin 3.2 gm/dL 10/08/2022 8:45 PM EDT [facility] Comment:Calculated Result A/G Ratio 1.3 g/dL 10/08/2022 8:45 PM EDT [facility] BUN/Creatinine Ratio 11.3 7.0 - 25.0 10/08/2022 8:45 PM EDT [facility] Anion Gap 16.0(H) 5.0 - 15.0 mmol/L 10/08/2022 8:45 PM EDT [facility] eGFR 119.3 >60.0 mL/min/1.7 3 10/08/2022 8:45 PM EDT [facility] Blood Venipuncture / Unknown 10/08/2022 8:15 PM EDT 10/08/2022 8:20 PM EDT Narrative [facility] - 10/08/2022 8:45 PM EDT GFR Normal >60 Chronic Kidney Disease <60 Kidney Failure <15 us Dez Rice DO LAB BLOOD ORDERABLES Final Resul t [facility]
[address] [place] [address], documented in this encounter Visit Diagnoses Diagnosis Left upper quadrant abdominal pain- Primary Nausea and vomiting, unspecified vomiting type documented in this encounter Administered Medications Inactive Administered Medications - up to 3 most recent administrations Medication Order MAR Action Action Date Dose Rate Site diphenhydrAMINE (BENADRYL) injection 25 mg 25 mg, Intravenous, Once, On Annabel 10/09/22 at 0132, For 1 dose, 25 mg may be given IV push over less than 1 minute. Caution: Look alike/sound alike drug alert. This med may be ordered in other forms and routes. Before giving verify the last time the drug was given by any route/form. Given 10/09/2022 1:32 AM EDT 25 mg famotidine (PEPCID) injection 20 mg 20 mg, Intravenous, Once, On Thu10/08/22 at 1925, For 1 dose, Give IV push over 2 minutes. Given 10/08/2022 8:13 PM EDT 20 mg HYDROmorphone (DILAUDID) injection 0.5 mg 0.5 mg, Intravenous, Every 12 Hours PRN, Severe Pain, Starting on Thu10/08/22 at 1905, For 2 doses, Based on patient request - if ordered for moderate or severe pain, provider allows for administration of a medication prescribed for a lower pain scale. If given for pain, use the following pain scale: Mild Pain = Pain Score of 1-3, CPOT 1-2 Moderate Pain = Pain Score of 4-6, CPOT 3-4 Severe Pain = Pain Score of 7-10, CPOT 5-8 Given 10/08/2022 11:26 PM EDT 0.5 mg iopamidol (ISOVUE-300) 61 % injection 100 mL 100 mL, Intravenous, Once in Imaging, On Thu10/08/22 at 2107, For 1 dose Given 10/08/2022 8:51 PM EDT 84 mL metoclopramide (REGLAN) injection 10 mg 10 mg, Intravenous, Once, On Annabel 10/09/22 at 0132, For 1 dose, Doses of 10 mg or less can be given IV push undiluted over 1 to 2 minutes Given 10/09/2022 1:46 AM EDT 10 mg ondansetron (ZOFRAN) injection 4 mg 4 mg, Intravenous, Once, On Thu10/08/22 at 1920, For 1 dose, Maximum Dose 4 mg IV every 6 hours per pharmacy and therapeutics committee Given 10/08/2022 8:13 PM EDT 4 mg ondansetron (ZOFRAN) injection 4 mg 4 mg, Intravenous, Once, On Thu10/08/22 at 2141, For 1 dose, If multiple N/V medications ordered, use in the following order: Ondansetron, Prochlorperazine, Promethazine. Use PO unless patient refuses or patient unable to swallow. Given 10/08/2022 11:14 PM EDT 4 mg pantoprazole (PROTONIX) EC tablet 40 mg 40 mg, Oral, Once, On Thu10/08/22 at 1925, For 1 dose, Swallow whole; do not crush, split, or chew. Given 10/08/2022 8:13 PM EDT 40 mg sodium chloride 0.9 % bolus 1,000 mL 1,000 mL, Intravenous, at 2,000 mL/hr, Administer over 0.5 Hours, Once, On Thu10/08/22 at 1920, For 1 dose New Bag 10/08/2022 8:14 PM EDT 1,000 mL 2000 mL/hr sodium chloride 0.9 % bolus 1,000 mL 1,000 mL, Intravenous, at 2,000 mL/hr, Administer over 0.5 Hours, Once, On Thu10/09/22 at 0154, For 1 dose New Bag 10/09/2022 1:45 AM EDT 1,000 mL 2000 mL/hr sodium chloride 0.9 % flush 10 mL 10 mL, Intravenous, As Needed, Line Care, Starting on Thu10/08/22 at 1905 sucralfate (CARAFATE) tablet 1 g 1 g, Oral, Once, On Thu10/08/22 at 1925, For 1 dose, Administer as a slurry For nasogastric or slurry administration: 1. Remove the cap and plunger from a [address] the sucralfate tablet inside the syringe 3. Replace the plunger so that minimal airspace exists around the tablet 4. Draw up approximately 20 mL water into the syringe 5. Replace the syringe cap 6. Allow the syringe to stand for ~5 minutes, shaking occasionally 7. Shake the suspension and administer directly from the syringe into the tube Flush tube before and after administration Given 10/08/2022 8:13 PM EDT 1 g documented in this encounter Active and Recently Administered Medications Times are shown in EDT. Scheduled Medication Order 10/07/2022 10/08/2022 10/09/2022 diphenhydrAMINE (BENADRYL) injection 25 mg (COMPLETED) 25 mg, Intravenous, Once, On Annabel 10/09/22 at 0132, For 1 dose, 25 mg may be given IV push over less than 1 minute. Caution: Look alike/sound alike drug alert. This med may be ordered in other forms and routes. Before giving verify the last time the drug was given by any route/form. 013 (Given - Provid er: Alexandria Fields RN) famotidine (PEPCID) injection 20 mg (COMPLETED) 20 mg, Intravenous, Once, On Thu10/08/22 at 1925, For 1 dose, Give IV push over 2 minutes. 2012 (Given - Provider: Hafsa Martel, CHANDNI) iopamidol (ISOVUE-300) 61 % injection 100 mL (COMPLETED) 100 mL, Intravenous, Once in Imaging, On Thu10/08/22 at 210, For 1 dose 2050 (Given - Provider: Mehnaz Jean-Baptiste) metoclopramide (REGLAN) injection 10 mg (COMPLETED) 10 mg, Intravenous, Once, On Annabel 10/09/22 at 0132, For 1 dose, Doses of 10 mg or less can be given IV push undiluted over 1 to 2 minutes 145 (Given - Provid er: Alexandria Fields RN) ondansetron (ZOFRAN) injection 4 mg (COMPLETED) 4 mg, Intravenous, Once, On Thu10/08/22 at 1920, For 1 dose, Maximum Dose 4 mg IV every 6 hours per pharmacy and therapeutics committee 2012 (Given - Provider: Hafsa Martel, CHANDNI) ondansetron (ZOFRAN) injection 4 mg (COMPLETED) 4 mg, Intravenous, Once, On Thu10/08/22 at 2141, For 1 dose, If multiple N/V medications ordered, use in the following order: Ondansetron, Prochlorperazine, Promethazine. Use PO unless patient refuses or patient unable to swallow. 2313 (Given - Provider: Alexandria Fields RN) pantoprazole (PROTONIX) EC tablet 40 mg (COMPLETED) 40 mg, Oral, Once, On Thu10/08/22 at 1925, For 1 dose, Swallow whole; do not crush, split, or chew. 2012 (Given - Provider: Hafsa Martel RN) sodium chloride 0.9 % bolus 1,000 mL (COMPLETED) 1,000 mL, Intravenous, at 2,000 mL/hr, Administer over 0.5 Hours, Once, On Thu10/08/22 at 1920, For 1 dose 2013 (New Bag - Provider: Hafsa Martel RN)231 (Stopped - Provider: Alexandria Fields RN) sodium chloride 0.9 % bolus 1,000 mL (COMPLETED) 1,000 mL, Intravenous, at 2,000 mL/hr, Administer over 0.5 Hours, Once, On Thu10/09/22 at 0154, For 1 dose 0145 (New Bag - Provider: Alexandria Fields RN)0234 (Stopped - Provider: Alexandria Fields RN) sucralfate (CARAFATE) tablet 1 g (COMPLETED) 1 g, Oral, Once, On Thu10/08/22 at 1925, For 1 dose, Administer as a slurry For nasogastric or slurry administration: 1. Remove the cap and plunger from a [address] the sucralfate tablet inside the syringe 3. Replace the plunger so that minimal airspace exists around the tablet 4. Draw up approximately 20 mL water into the syringe 5. Replace the syringe cap 6. Allow the syringe to stand for ~5 minutes, shaking occasionally 7. Shake the suspension and administer directly from the syringe into the tube Flush tube before and after administration 2012 (Given - Provider: Hafsa Martel RN) PRN Medication Order 10/07/2022 10/08/2022 10/09/2022 HYDROmorphone (DILAUDID) injection 0.5 mg 0.5 mg, Intravenous, Every 12 Hours PRN, Severe Pain, Starting on Thu10/08/22 at 1905, For 2 doses, Based on patient request - if ordered for moderate or severe pain, provider allows for administration of a medication prescribed for a lower pain scale. If given for pain, use the following pain scale: Mild Pain = Pain Score of 1-3, CPOT 1-2 Moderate Pain = Pain Score of 4-6, CPOT 3-4 Severe Pain = Pain Score of 7-10, CPOT 5-8 6234 (Given - Provider: Jim Fields RN) sodium chloride 0.9 % flush 10 mL 10 mL, Intravenous, As Needed, Line Care, Starting on Thu10/08/22 at 1905 documented in this encounter Care Teams Chicken Raiser Relationship Specialty Start Date End Date Elmo Escobar MD [address] [place] [address] PCP - General Family Medicine 10/08/22 10/08/23 documented as of this encounter
--- OUTSIDE RECORDS SUMMARY | 2024-02-03 15:05 | XMS_ITS | Encounter Summary ---
[facility] [address] [place] [address] Care Team Providers Care Keypuncher Name Role Phone Lisa Foote Beatriz ORELLANA Primary Care Provider [phone]- [phone] Encounter Details Date Type Department Care Team (Late st Contact Info) Description 10/20/2023 Telephone [facility]IMARY [facility] [address] [place] [address] [place] [phone] Dennys Ng MD [address] [place] [address] [place] [address] Social History Tobacco Use Types Packs/Day [...] encounter Miscellaneous Notes * Telephone Encounter - Dennys Ng MD - 10/20/2023 7:49 PM EDT Extensive phone call from this patient's mother regarding patient of Lisa Foote APRN, who was apparently yesterday admitted locally to [facility] with apparent diagnosis of acute on chronic pancreatitis related to chronic alcohol consumption. Patient's mother called me from [place] concerned that her daughter was not getting sufficient relief of her pain as well as concerned about possible discharge, this being verbalized to the mother by the patient over the phone. Patient's mother wondered about me intervening on her behalf regarding pain management as such. Only information mother has had is from the patient. I advised mother that [facility], and that neither me, or her PCP, Lisa Foote APRN, has any jurisdiction nor would it be appropriate to intervene on inpatient management of this patient. Patient is reportedly of sound mind and a legal adult, thus able to make her own decisions regarding care as well as to com municate with hospitalist regarding same. If patient wishes for her mother to have some ability to intervene on her behalf, then this would need to be approved by the patient herself. Patient's mother reports that she understands issues related to this conversation, and voiced appreciation for my phone call. documented in this encounter Plan of Treatment Not on file documented as of this encounter Visit Diagnoses Not on filedocumented in this encounter Care Teams Keypuncher Relationship Specialty Start Date End Date Lisa Foote APRN [address] [place], [place] [id number] PCP - General Family Medicine 10/09/23 documented as of this encounter
--- OUTSIDE RECORDS SUMMARY | 2024-02-03 15:05 | XMS_ITS | Encounter Summary ---
[facility] Address [address] [place] [address] Care Team Providers Care Senior Asic Design Engineer Name Role Phone QamarLisa mckeon Beatriz ORELLANA Primary Care Provider [phone]- [phone] Encounter Details Date Type Department Care Team (Late st Contact Info) Description 01/27/2024 Transitional Care Management Telephone Encounter [facility] [address] [place] [phone] Barbara Clarke, CHANDNI Social History Tobacco Use Types Packs/Day Years [...] encounter Miscellaneous Notes * Outreach Note - Barbara Clarke RN - 01/27/2024 9:18 AM EST Images from the original note were not included. Call Center TCM Note Flowsheet Row Responses [facility] facility patient discharged from? Non- [] Does the patient have one of the following disease processes/diagnoses(primary or secondary)? Other TCM attempt successful? No Unsuccessful attempts Attempt 3 Barbara Clarke RN 01/27/2024, 09:24 EST documented in this encounter Plan of Treatment Not on file documented as of this encounter Visit Diagnoses Not on filedocumented in this encounter Care Teams Senior Asic Design Engineer Relationship Specialty Start Date End Date Lisa Foote, ESTEBAN [address] [place] [address] PCP - General Family Medicine 10/09/23 documented as of this encounter
--- OUTSIDE RECORDS SUMMARY | 2024-02-03 15:05 | XMS_ITS | Encounter Summary ---
[facility] [address] [place] [address] Care Team Providers Care Mail Delivery Supervisor Name Role Phone QamarLisa mckeon Beatriz ORELLANA Primary Care Provider [phone]- [phone] Encounter Details Date Type Department Care Team (Late st Contact Info) Description 10/29/2023 Transitional Care Management Telephone Encounter [facility]SE CALL C[facility] [address] [place] [phone] Svetlana Mcclure, RN Social History Tobacco [...] Note - Svetlana Mcclure, RN - 10/29/2023 11:17 AM EDT Images from the original note were not included. Call Center TCM Note Flowsheet Row Responses [facility] [place] patient discharged from? Non-BH Does the patient have one of the following disease processes/diagnoses(primary or secondary)? Other TCM attempt successful? No Unsuccessful attempts Attempt 1 [Asiya/Napoleon on verbal release-no answer] Svetlana Mcclure RN 10/29/2023, 11:33 EDT documented in this encounter Plan of Treatment Not on file documented as of this encounter Visit Diagnoses Not on filedocumented in this encounter Care Teams Mail Delivery Supervisor Relationship Specialty Start Date End Date Lisa Foote, OPERATIONAL INTELLIGENCE OFFICER [address] [place] [address] PCP - General Family Medicine 10/09/23 documented as of this encounter
--- OUTSIDE RECORDS SUMMARY | 2024-02-03 15:05 | XMS_ITS | Encounter Summary ---
[facility] [address] [place] [address] Care Team Providers Care Lamps Tester And Inspector Name Role Phone Lisa Foote FELT FINISHER Primary Care Provider [phone]- [phone] Reason for Visit * Reason Onset Date Comments Medication Problem 12/30/2023 Encounter Details Date Type Department Care Team (Late st Contact Info) Description 12/30/2023 Telephone [facility] [address] [place] [phone] Lisa Foote, FELT FINISHER [address] [place] [address] Medication Problem Social History Tobacco Use Types Packs/Day Years [...] Telephone Encounter - Julieta Solomon MA - 12/30/2023 9:16 AM EST Patient has an appointment for 01/01/2024 * Telephone Encounter - Seb Moody RegSched Rep - 12/30/2023 9:09 AM EST PT CALLED TO CHECK STATUS OF RX pregabalin (LYRICA) 300 MG capsule TO BE SENT TO: [facility] [address] - [phone] [facility] [phone] FX * Telephone Encounter - Norma Maynard RegSched Rep - 12/30/2023 8:25 AM EST Caller: Lila Mcnally Relationship: Self Best call back number: [phone] Requested Prescriptions: pregabalin (LYRICA) 300 MG capsule Pharmacy where request should be sent: [facility] - [address] [place] - [phone] [facility] [phone] FX Last office visit with prescribing clinician: 11/02/2023 Last telemedicine visit with prescribing clinician: Visit date not found Next office visit with prescribing clinician: 01/01/2024 Additional details provided by patient: PATIENT STATES THAT THE PHARMACY IS OUT OF STOCK AND IS REQUESTING THAT IT'S SENT TO A DIFFERENT PHARMACY Does the patient have less than a 3 day supply: [x] Yes [] No Would you like a call back once the refill request has been completed: [] Yes [x] No If the office needs to give you a call back, can they leave a voicemail: [] Yes [x] No Silke Brewer 12/30/23 08:26 EST documented in this encounter Plan of Treatment Not on file documented as of this encounter Visit Diagnoses Diagnosis Acute on chronic pancreatitis documented in this encounter Care Teams Lamps Tester And Inspector Relationship Specialty Start Date End Date Lisa Foote APRN [address] [place], [place] [phone] PCP - General Family Medicine 10/09/23 documented as of this encounter
--- OUTSIDE RECORDS SUMMARY | 2024-02-03 15:05 | XMS_ITS | Encounter Summary ---
[facility] [address] [place] [address] Care Team Providers Care Field Aide Name Role Phone Lisa Foote EXPLORATION ENGINEER Primary Care Provider [phone] Encounter Details Date Type Department Care Team (Late st Contact Info) Description 10/22/2023 Telephone [facility] PRIMARY [facility]ARE [address] [place] [phone] Lisa Foote, EXPLORATION ENGINEER [address] [place] [address] Social History Tobacco Use Types Packs/Day [...] Telephone Encounter - Julieta Solomon MA - 10/22/2023 11:59 AM EDT Called and advised patient to go to ER and she verbalized understanding * Telephone Encounter - Julieta Solomon MA - 10/22/2023 9:22 AM EDT Patient states that she went to the ER ()and that the did not keep, stating her lipase was normal. She states that she can not keep anything down and in lots of pain. Patient wants to know what does she need to do? Please advise documented in this encounter Plan of Treatment Not on file documented as of this encounter Visit Diagnoses Not on filedocumented in this encounter Care Teams Field Aide Relationship Specialty Start Date End Date Lisa Foote APRN [address] [place], [place] [phone] PCP - General Family Medicine 10/09/23 documented as of this encounter
--- OUTSIDE RECORDS SUMMARY | 2024-02-03 15:05 | XMS_ITS | Encounter Summary ---
[facility] Address [address] [place] [address] Care Team Providers Care Candy Rolling Machine Operator Name Role Phone Lisa Foote SUPERVISOR FISHING Primary Care Provider [phone]- [phone] Reason for Visit * Reason Onset Date Comments MEDICATION CONCERN 11/02/2023 Encounter Details Date Type Department Care Team (Late st Contact Info) Description 11/02/[address] [facility]IMARY [facility] [address] [place] [phone] Lisa oFote, SUPERVISOR FISHING [address] [place] [address] MEDICATION CONCERN Social History Tobacco Use Types Packs/Day Years [...] encounter Miscellaneous Notes * Telephone Encounter - Sherrill Montejo PCT - 11/02/2023 1:52 PM EDT Caller: [facility] [place] [address] - [phone] - [phone] FX Relationship: Pharmacy Best call back number: [phone] Which medication are you concerned about: oxyCODONE (OXY-IR) 5 MG capsule What are your concerns: WAS THIS SUPPOSED TO GO TO [facility] BECAUSE SHE HAS BEEN FILLING SOMEWHERE ELSE? OXYCODONE WROTE FOR [facility] THEY NEED IT RE-SENT TO [facility] documented in this encounter Plan of Treatment Not on file documented as of this encounter Visit Diagnoses Not on filedocumented in this encounter Care Teams Candy Rolling Machine Operator Relationship Specialty Start Date End Date Lisa Foote APRN [address] [place], [place] [phone] PCP - General Family Medicine 10/09/23 documented as of this encounter
--- OUTSIDE RECORDS SUMMARY | 2024-02-03 15:06 | XMS_ITS | Encounter Summary ---
Author Organization [facility] Address [address] [place] [address] Care Team Providers Care Tonsorial Artist Name Role Phone Provider, No Known Primary Care Provider Unavail able Reason for Visit * Reason Comments Flu Symptoms Encounter Details Date Type Department Care Team (Late st Contact Info) Description 07/04/2016 2:39 PM EDT - 07/04/2016 5:41 PM EDT Emergency [facility] [address] [place] [address] Sathya Barakat MD [address] [facility] [place] [address] Right otitis media, unspecified chronicity, unspecified otitis media type (Primary Dx); Elevated blood pressure reading without diagnosis of hypertension; Bronchitis; Viral gastroenteritis Discharge Disposition: Home or Self Care Social [...] Sign Reading Time Taken Comments Blood Pressure 131/99 07/04/2016 12:14 PM EDT Pulse 94 07/04/2016 5:04 PM EDT Temperature 37.2 ??C (98.9 ??F) 07/04/2016 12:14 PM E DT Respiratory Rate 18 07/04/2016 12:14 PM EDT Oxygen Saturation 97% 07/04/2016 5:04 PM EDT Inhaled Oxygen Concentration - - Weight 83.9 kg (185 lb) 07/04/2016 12:12 PM EDT Height 167.6 cm (5' 6 ) 07/04/2016 12:12 PM EDT Body Mass Index 29.86 07/04/2016 12:12 PM EDT documented in this encounter Discharge Instructions * Discharge Instructions* Sathya Barakat MD - 07/04/2016 5:23 PM EDT Follow up with one of the [facility] physician groups below to setup primary care. If you have trouble following up, please call Diane Don, our transitional care nurse, at . For your cough use Mucinex DM which is available [id number]. (Dr. Malin, Dr. Amanda, Dr. Hernandez, and Dr. Rojo.) [facility], Primary Care, , [address], [place] [address] [facility], Primary Care, , [address] [facility], [facility] [address] [place], [address] [facility], Primary Care, , [address] [facility], [address] [place], [address] [facility], Primary Care, , [address] [facility], [address] [place], [address] [place] [address] [facility], Primary Care, , [address] [facility], [address] [place], [address] [place] [address] [facility], Primary Care, , [address], [place] [place], [address] [facility], Primary Care, , [address] [facility], [address] [place], [address] [facility], Primary Care, , [address], [address] [place], [address] [facility]) [facility], Primary Care, [phone], [address] [facility], [address] [place], [address] [facility], Primary Care, , [address], [address], [address] [facility], Primary Care, , [address], [place], [address] [place] [address], Primary Care, , [address] [facility], [place] [address] [place] [address] * Attachments The following attachments cannot be sent through Care Everywhere. * HYPERTENSION (SLOVAK) documented in this encounter Medications at Time [...] Nausea or Vomiting. 6 tablet 07/04/2016 9 penicillin v potassium (VEETID) 500 MG tablet Take 1 tablet by mouth 4 (Four) Times a Day. 40 tablet 05/12/2016 9 promethazine (PHENERGAN) 25 MG tablet Take 1 tablet by mouth Every 6 (Six) Hours As Needed for nausea or vomiting. 6 tablet 04/19/2016 9 documented as of this encounter ED Notes * Sathya Barakat MD - 07/04/2016 2:59 PM EDT Subjective HPI Comments: Lila Mcnally is a 30 y.o.female who presents to the ED with multiple complaints. 3 days ago she began having nausea, vomiting, left ear itching, congestion, cough, chills, pain with inspiration, myalgias most severe in her back and fatigue. Yesterday she was seen at where she had a negative CXR and was discharged. She states that her sx have continued . Pt has had sick contact with her children who had nausea and vomiting but their sx have resolved. Patient is a 30 y.o. female presenting with URI. 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 by: Patient URI Presenting symptoms: congestion, cough and fatigue Presenting symptoms: no fever Severity: Moderate Onset quality: Sudden Duration: 3 days Timing: Constant Chronicity: New Relieved by: Nothing Worsened by: Nothing Associated symptoms: myalgias Review of Systems Constitutional: Positive for fatigue. Negative for fever. HENT: Positive for congestion. Ear itching Respiratory: Positive for cough. Cardiovascular: Positive for chest pain (only with inspiration). Gastrointestinal: Positive for diarrhea, nausea and vomiting. Musculoskeletal: Positive for myalgias. All other systems reviewed and are negative. Past Medical History: Diagnosis Date ??? Anxiety Allergies Allergen Reactions ??? Codeine ??? Morphine And Related ??? Toradol [Ketorolac Tromethamine] ??? Tramadol Past Surgical History: Procedure Laterality Date ??? CHOLECYSTECTOMY ??? DILATATION AND CURETTAGE History reviewed. No pertinent family history. Social History Social History ??? Marital status: Single Spouse name: N/A ??? Number of children: N/A ??? Years of education: N/A Social History Main Topics ??? Smoking status: Current Every Day Smoker Packs/day: 0.50 ??? Smokeless tobacco: None ??? Alcohol use Yes Comment: OCCASIONAL ??? Drug use: No ??? Sexual activity: Not Asked Other Topics Concern ??? None Social History Narrative Objective Physical Exam Constitutional: She is oriented to person, place, and time. She appears well- developed and well-nourished. No distress. HENT: Head: Normocephalic and atraumatic. Right TM dull and erythematous. Dry mucous membranes. Eyes: Conjunctivae are normal. No scleral icterus. Neck: Normal range of motion. Neck supple. Cardiovascular: Normal rate, regular rhythm and normal heart sounds. Pulmonary/Chest: Effort normal and breath sounds normal. No respiratory distress. Abdominal: Soft. There is no tenderness. Musculoskeletal: Normal range of motion. She exhibits no edema. Lymphadenopathy: She has no cervical adenopathy. Neurological: She is alert and oriented to person, place, and time. Skin: Skin is warm and dry. No rash noted. She is not diaphoretic. Psychiatric: She has a normal mood and affect. Her behavior is normal. Nursing note and vitals reviewed. Procedures ED Course ED Course MDM Number of Diagnoses or Management Options Bronchitis: new and requires workup Elevated blood pressure reading without diagnosis of hypertension: Right otitis media, unspecified chronicity, unspecified otitis media type: Viral gastroenteritis: new and requires workup Amount and/or Complexity of Data Reviewed Clinical lab tests: ordered and reviewed Review and summarize past medical records: yes Independent visualization of images, tracings, or specimens: yes Patient Progress Patient progress: improved Final diagnoses: Right otitis media, unspecified chronicity, unspecified otitis media type Elevated blood pressure reading without diagnosis of hypertension Bronchitis Viral gastroenteritis Documentation assistance provided by gaetano Valdez. Information recorded by the gaetano was done at my direction and has been verified and validated by me. Eric Valdez 07/04/16 1194 Sathya Barakat MD 07/07/16 6699 documented in this encounter Plan of Treatment Not on file documented as of this encounter Procedures Procedure Name Priority Date/Time Associated Diagnosis Comments URINALYSIS, MICROSCOPIC ONLY STAT 07/04/2016 3:53 PM EDT URINALYSIS W/ CULTURE IF INDICATED STAT 07/04/2016 3:53 PM EDT , URINE STAT 07/04/2016 3:53 PM EDT PROCALCITONIN STAT 07/04/2016 3:41 PM EDT CBC WITH AUTO DIFFERENTIAL STAT 07/04/2016 3:41 PM EDT CBC AND DIFFERENTIAL STAT 07/04/2016 3:41 PM EDT LACTIC ACID, PLASMA STAT 07/04/2016 3 :41 PM EDT CK STAT 07/04/2016 3:41 PM EDT COMPREHENSIVE METABOLIC PANEL STAT 07/04/2016 3:41 PM EDT documented in this encounter Results * (ABNORMAL) Urinalysis, Microscopic Only (07/04/2016 3:53 PM EDT) RBC, UA 0-2 None Seen, 0-2 /HPF 07/04/2016 4:11 PM EDT [facility] WBC, UA 0-2(A) None Seen /HPF 07/04/2016 4:11 PM EDT [facility] Bacteria, UA None Seen None Seen, Trace /HPF 07/04/2016 4:11 PM EDT [facility] Squamous Epithelial Cells, UA 7-12(A) None Seen, 0-2 /HPF 07/04/2016 4:11 PM EDT [facility] Hyaline Casts, UA 0-6 0 - 6 /LPF 07/04/2016 4:11 PM EDT [facility] Methodology Automated Microscopy 07/04/2016 4:11 PM EDT [facility] Urine Urine specimen collection, clean catch / Unknown Collection / Unknown 07/04/2016 3:53 PM EDT 07/04/2016 4:03 PM EDT us Sathya Barakat MD URINE ORDERABLES Final Result [facility]
[address] [place] [address], * (ABNORMAL) Urinalysis With / Culture If Indicated (07/04/2016 3:53 PM EDT) Color, UA Yellow Yellow, Straw 07/04/2016 4:11 PM EDT [facility] Appearance, UA Cloudy(A) Clear 07/04/2016 4:11 PM EDT [facility] pH, UA 5.5 5.0 - 8.0 07/04/2016 4:11 PM EDT [facility] Specific [place], UA 1.025 1.001 - 1.030 07/04/2016 4:11 PM EDT [facility] Glucose, UA Negative Negative 07/04/2016 4:11 PM EDT [facility] Ketones, UA 15 mg/dL (1+)(A) Negative 07/04/2016 4:11 PM EDT [facility] Bilirubin, UA Small (1+)(A) Negative 07/04/2016 4:11 PM EDT [facility] Blood, UA Negative Negative 07/04/2016 4:11 PM EDT [facility] Protein, UA Negative Negative 07/04/2016 4:11 PM EDT [facility] Leuk Esterase, UA Trace(A) Negative 07/04/2016 4:11 PM EDT [facility] Nitrite, UA Negative Negative 07/04/2016 4:11 PM EDT [facility] Urobilinogen, UA 0.2 E.U./dL 0.2 - 1.0 E.U./dL 07/04/2016 4:11 PM EDT [facility] Urine Urine specimen collection, clean catch / Unknown Collection / Unknown 07/04/2016 3:53 PM EDT 07/04/2016 4:03 PM EDT Sathya Barakat MD URINE ORDERABLES Final Result Performing Organization Address City/[facility]/ZIP Co de Phone Number [facility]
[address] [place] [address], [place] [phone] * , Urine (07/04/2016 3:53 PM EDT) HCG, Urine QL Negative Negative DISK DIFFUSION 07/04/2016 4:13 PM EDT [facility] Urine Urine specimen collection, clean catch / Unknown Collection / Unknown 07/04/2016 3:53 PM EDT 07/04/2016 4:03 PM EDT us Sathya Barakat MD URINE ORDERABLES Final Result Performing Organization Address [facility] Co de Phone Number [facility]
[address] [place] [address], * (ABNORMAL) CBC Auto Differential (07/04/2016 3:41 PM EDT) WBC 4.21 3.50 - 10.80 10*3/mm3 07/04/2016 4:03 PM EDT [facility] RBC 4.60 3.89 - 5.14 10*6/mm3 07/04/2016 4:03 PM EDT [facility] Hemoglobin 13.8 11.5 - 15.5 g/dL 07/04/2016 4:03 PM EDT [facility] Hematocrit 42.6 34.5 - 44.0 % 07/04/2016 4:03 PM EDT [facility] MCV 92.6 80.0 - 99.0 fL 07/04/2016 4:03 PM EDT [facility] MCH 30.0 27.0 - 31.0 pg 07/04/2016 4:03 PM EDT [facility] MCHC 32.4 32.0 - 36.0 g/dL 07/04/2016 4:03 PM EDT [facility] RDW 12.8 11.3 - 14.5 % 07/04/2016 4:[facility] RDW-SD 43.0 37.0 - 54.0 fl 07/04/2016 4:03 PM [facility] MPV 10.1 6.0 - 12.0 fL 07/04/2016 4:03 PM [facility] Platelets 152 150 - 450 10*3/mm3 07/04/2016 4:03 PM [facility] Neutrophil % 67.9 41.0 - 71.0 % 07/04/2016 4:03 PM EDT [facility] Lymphocyte % 20.7(L) 24.0 - 44.0 % 07/04/2016 4:03 PM [facility] Monocyte % 8.3 0.0 - 12.0 % 07/04/2016 4:03 PM [facility] Eosinophil % 2.4 0.0 - 3.0 % 07/04/2016 4:03 PM [facility] Basophil % 0.5 0.0 - 1.0 % 07/04/2016 4:03 PM [facility] Immature Grans % 0.2 0.0 - 0.6 % 07/04/2016 4:03 PM [facility] Neutrophils, Absolute 2.86 1.50 - 8.30 10*3/mm3 07/04/2016 4:03 PM [facility] Lymphocytes, Absolute 0.87 0.60 - 4.80 10*3/mm3 07/04/2016 4:03 PM [facility] Monocytes, Absolute 0.35 0.00 - 1.00 10*3/mm3 07/04/2016 4:03 PM [facility] Eosinophils, Absolute 0.10 0.10 - 0.30 10*3/mm3 07/04/2016 4:03 PM [facility] Basophils, Absolute 0.02 0.00 - 0.20 10*3/mm3 07/04/2016 4:03 PM [facility] Immature Grans, Absolute 0.01 0.00 - 0.03 10*3/mm3 07/04/2016 4:03 PM EDT [facility] Blood Venipuncture / Unknown 07/04/2016 3:41 PM EDT 07/04/2016 3:52 PM EDT us Sathya Barakat MD LAB BLOOD ORDERABLES Final Res ult [facility]
[address] [place] [address], * Procalcitonin (07/04/2016 3:41 PM EDT) Procalcitonin <0.05 ng/mL 07/04/2016 4:58 PM EDT [facility] Blood Venipuncture / Unknown 07/04/2016 3:41 PM EDT 07/04/2016 3:52 PM EDT Narrative [facility] - 07/04/2016 4:58 PM EDT As a Marker for Sepsis (Non-Neonates): 1. <0.5 ng/mL represents a low risk of severe sepsis and/or septic shock. 2. >2 ng/mL represents a high risk of severe sepsis and/or septic shock. As a Marker for Lower Respiratory Tract Infections that require antibiotic therapy: PCT on Admission ? Antibiotic Therapy ? 6-12 Hrs later > 0.5 ?Strongly Recommended ? >0.25 - <0.5 ? Recommended 0.1 - 0.25 ? Discouraged ?Remeasure/reassess PCT <0.1 ? Strongly Discouraged ? Remeasure/reassess PCT ? PCT values of < 0.5 ng/mL do not exclude an infection, because localized infections (without systemic signs) may be associated with such low concentrations, or a systemic infection in its initial stages (< 6 hours). Furthermore, increased PCT can occur without infection. PCT concentrations between 0.5 and 2.0 ng/mL should be interpreted taking into account the patient's history. It is recommended to retest PCT within 6-24 hours if any concentrations < 2 ng/mL are obtained. us Sathya Barakat MD LAB BLOOD ORDERABLES Final Res ult Performing Organization Address [facility] de Phone Number [facility]
[address] [place] [address], * Lactic Acid, Plasma (07/04/2016 3:41 PM EDT) Lactate 0.6 0.5 - 2.0 mmol/L 07/04/2016 4:13 PM EDT [facility] Comment:Falsely depressed re sults may occur on samples drawn from patients receiving N-Acetylcysteine (NAC) or Metamizole. Blood Venipuncture / Unknown 07/04/2016 3:41 PM EDT 07/04/2016 3:52 PM EDT us Sathya Barakat MD LAB BLOOD ORDERABLES Final Res ult Performing Organization Address [facility] de Phone Number [facility]
[address] [place] [address], * CK (07/04/2016 3:41 PM EDT) Creatine Kinase 142 26 - 174 U/L 07/04/2016 4:24 PM EDT [facility] Blood Venipuncture / Unknown 07/04/2016 3:41 PM EDT 07/04/2016 3:52 PM EDT us Sathya Barakat MD LAB BLOOD ORDERABLES Final Res ult Performing Organization Address [facility] de Phone Number [facility]
[address] [place] [address], * (ABNORMAL) Comprehensive Metabolic Panel (07/04/2016 3:41 PM EDT) [facility] Glucose 86 70 - 100 mg/dL 07/04/2016 4:24 PM EDT [facility] BUN 8(L) 9 - 23 mg/dL 07/04/2016 4:24 PM EDT [facility] Creatinine 0.50(L) 0.60 - 1.30 mg/dL 07/04/2016 4:24 PM EDT [facility] Sodium 138 132 - 146 mmol/L 07/04/2016 4:24 PM EDT [facility] Potassium 3.7 3.5 - 5.5 mmol/L 07/04/2016 4:24 PM EDT [facility] Chloride 105 99 - 109 mmol/L 07/04/2016 4:24 PM EDT [facility] CO2 30.0 20.0 - 31.0 mmol/L 07/04/2016 4:24 PM EDT [facility] Calcium 9.4 8.7 - 10.4 mg/dL 07/04/2016 4:24 PM EDT [facility] Total Protein 7.1 5.7 - 8.2 g/dL 07/04/2016 4:24 PM EDT [facility] Albumin 4.40 3.20 - 4.80 g/dL 07/04/2016 4:24 PM EDT [facility] ALT (SGPT) 22 7 - 40 U/L 07/04/2016 4:24 PM EDT [facility] AST (SGOT) 23 0 - 33 U/L 07/04/2016 4:24 PM EDT [facility] Alkaline Phosphatase 88 25 - 100 U/L 07/04/2016 4:24 PM EDT [facility] Total Bilirubin 0.4 0.3 - 1.2 mg/dL 07/04/2016 4:24 PM EDT [facility] eGFR Non Amer 146 >60 mL/min/1.7 3 07/04/2016 4:24 PM EDT [facility] Globulin 2.7 gm/dL 07/04/2016 4:24 PM EDT [facility] A/G Ratio 1.6 1.5 - 2.5 g/dL 07/04/2016 4:24 PM EDT [facility] BUN/Creatinine Ratio 16.0 7.0 - 25.0 07/04/2016 4:24 PM EDT [facility] Anion Gap 3.0 3.0 - 11.0 mmol/L 07/04/2016 4:24 PM EDT [facility] Blood Venipuncture / Unknown 07/04/2016 3:41 PM EDT 07/04/2016 3:52 PM EDT Narrative [facility] - 07/04/2016 4:24 PM EDT [employer] Guidelines Stage ? Description ?GFR 1 ? Normal or High ? 90+ 2 ? Mild decrease ?60-89 3 ? Moderate decrease ??30-59 4 ? Severe decrease ?15-29 5 ? Kidney failure ? <15 us Sathya Barakat MD LAB BLOOD ORDERABLES Final Res ult [facility]
[address] [place] [address], documented in this encounter Visit Diagnoses Diagnosis Right otitis media, unspecified chronicity, unspecified otitis media type- Primary Elevated blood pressure reading without diagnosis of hypertension Bronchitis Bronchitis, not specified as acute or chronic Viral gastroenteritis Intestinal infection due to other organism, NEC documented in this encounter Administered Medications Inactive Administered Medications - up to 3 most recent administrations Medication Order MAR Action Action Date Dose Rate Site acetaminophen (TYLENOL) tablet 1,000 mg 1,000 mg, Oral, Once, On Thu07/04/16 at 1603, For 1 dose, Do not exceed 4 grams of acetaminophen in a 24 hr period. Given 07/04/2016 4:07 PM EDT 1,000 mg benzonatate (TESSALON) capsule 100 mg 100 mg, Oral, Once, On Thu07/04/16 at 1603, For 1 dose, Swallow whole. Do not crush, chew, or open capsule. Given 07/04/2016 4:06 PM EDT 100 mg cefTRIAXone (ROCEPHIN) IVPB 1 g 1 g, Intravenous, Administer over 30 Minutes, Once, On Thu07/04/16 at 1544, For 1 dose, Refrigerate, Indications: Upper Respiratory Tract InfectionIndications:Upper Respiratory Tract Infection New Bag 07/04/2016 4:07 PM EDT 1 g ondansetron (ZOFRAN) injection 4 mg 4 mg, Intravenous, Once, On Thu07/04/16 at 1506, For 1 dose Given 07/04/2016 4:06 PM EDT 4 mg sodium chloride 0.9 % bolus 2,000 mL 2,000 mL, Intravenous, Once, On Thu07/04/16 at 1506, For 1 dose New Bag 07/04/2016 4:08 PM EDT 1,000 mL New Bag 07/04/2016 3:49 PM EDT 1,000 mL documented in this encounter Active and Recently Administered Medications Times are shown in EDT. Scheduled Medication Order 07/02/2016 07/03/2016 07/04/2016 acetaminophen (TYLENOL) tablet 1,000 mg (COMPLETED) 1,000 mg, Oral, Once, On Thu07/04/16 at 1603, For 1 dose, Do not exceed 4 grams of acetaminophen in a 24 hr period. 1607 (Given - Provid er: Anabel Craft RN) benzonatate (TESSALON) capsule 100 mg (COMPLETED) 100 mg, Oral, Once, On Thu07/04/16 at 1603, For 1 dose, Swallow whole. Do not crush, chew, or open capsule. 1606 (Given - Provid er: Anabel Craft RN) cefTRIAXone (ROCEPHIN) IVPB 1 g (COMPLETED) 1 g, Intravenous, Administer over 30 Minutes, Once, On Thu07/04/16 at 1544, For 1 dose, Refrigerate, Indications: Upper Respiratory Tract Infection 1607 (New Bag - Prov ider: Anabel Craft RN)1637 (Stopped - Provider: Anabel Craft RN) ondansetron (ZOFRAN) injection 4 mg (COMPLETED) 4 mg, Intravenous, Once, On Thu07/04/16 at 1506, For 1 dose 1606 (Given - Provid er: Anabel Craft RN) sodium chloride 0.9 % bolus 2,000 mL (COMPLETED) 2,000 mL, Intravenous, Once, On Thu07/04/16 at 1506, For 1 dose 1549 (New Bag - Prov ider: Anabel Craft RN - Comment: bag #1)[id number] (New Bag - Provider: Anabel Craft RN - Comment: bag #2)[id number] (Stopped - Provider: Anabel Craft RN) documented in this encounter Care Teams Tonsorial Artist Relationship Specialty Start Date End Date Provider, [place] [address] PCP - General 02/18/16 09/30/18 documented as of this encounter
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
--- OUTSIDE RECORDS SUMMARY | 2024-02-03 15:06 | XMS_ITS | Encounter Summary ---
Author Organization [facility] Address [address] [place] [address] Care Team Providers Care Processing Technician Name Role Phone Provider, No Known Primary Care Provider Unavail able Reason for Visit * Reason Comments Abdominal Pain Encounter Details Date Type Department Care Team (Late st Contact Info) Description 04/18/2016 10:13 PM EST - 04/19/2016 3:56 AM EST Emergency [facility] [address] [place] [id number] Dez Rice DO [address] [facility] [place] [address] Lung mass (Primary Dx); Breast mass; Nausea vomiting and diarrhea; Liver enzyme elevation; Generalized abdominal pain; Syncope, unspecified syncope type; Orthostatic syncope Discharge Disposition: Home or Self Care Social [...] Sign Reading Time Taken Comments Blood Pressure 124/90 04/19/2016 1:43 AM EST Pulse 65 04/19/2016 1:43 AM EST Temperature 36.6 ??C (97.9 ??F) 04/18/2016 8:39 PM ES T Respiratory Rate 15 04/18/2016 8:39 PM EST Oxygen Saturation 98% 04/19/2016 2:04 AM EST Inhaled Oxygen Concentration - - Weight 83.9 kg (185 lb) 04/18/2016 8:39 PM EST Height 167.6 cm (5' 6 ) 04/18/2016 8:39 PM EST Body Mass Index 29.86 04/18/2016 8:39 PM EST documented in this encounter Discharge Instructions * Attachments The following attachments cannot be sent through Care Everywhere. * ABDOMINAL PAIN, ADULT (MONTSERRATIAN) * BREAST SELF-AWARENESS (MONTSERRATIAN) * DIARRHEA (MONTSERRATIAN) * FOOD CHOICES TO HELP RELIEVE DIARRHEA, ADULT (MONTSERRATIAN) * NAUSEA AND VOMITING (MONTSERRATIAN) * SYNCOPE (MONTSERRATIAN) * MAMMOGRAM, [id number] (MONTSERRATIAN) * DEHYDRATION, ADULT (MONTSERRATIAN) * LIVER PROFILE (MONTSERRATIAN) documented in this encounter Medications at Time of Discharge busPIRone (BUSPAR) 10 MG tablet Take 10 mg by mouth 2 (Two) Times a Day. 10/02/2018 diphenhydrAMINE (BENADRYL) 25 MG tablet Take 1 tablet by mouth Every 6 (Six) Hours As Needed for allergies. 25 tablet 02/24/2016 10/02/2018 FLUoxetine (PROzac) 20 MG capsule Take 40 mg by mouth Daily. 10/02/2018 hydrOXYzine (ATARAX) 25 MG tablet Take 1 tablet by mouth Every 6 (Six) Hours As Needed for anxiety. 15 tablet 04/19/2016 10/02/2018 promethazine (PHENERGAN) 25 MG tablet Take 1 tablet by mouth Every 6 (Six) Hours As Needed for nausea or vomiting. 6 tablet 04/19/2016 10/02/2018 documented as of this encounter ED Notes * Dez Rice DO - 04/18/2016 10:35 PM EST Subjective HPI Comments: 30 y.o. female presents to ED with c/o abdominal pain. She reports that she has had waxing and waning mild abdominal pain for the last 4 months but 2 weeks ago it started worsening and the last few days it has been to the point where she can't eat or drink. She states that she is not able to eat or drink without vomiting and earlier today she tried to drink water but threw up and the n blacked out when standing up and ended up hitting her head on the toilet. She also complains of nausea but denies any diarrhea. She does not have a PCP and went to the ED where they prescribed her Zofran that she hasn't picked up yet and recommended a GI specialist to her. She claims that she called the GI specialist but the earliest they could see her was June and she said that wasn't soon enough. No other acute complaints at this time. Patient is a 30 y.o. female presenting with abdominal pain. 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 by: Patient Abdominal Pain Pain location: RLQ, suprapubic and RUQ Pain radiates to: Does not radiate Pain severity: Severe Onset quality: Gradual Duration: 16 weeks Timing: Constant Progression: Worsening Chronicity: New Relieved by: Nothing Worsened by: Nothing Ineffective treatments: None tried Associated symptoms: nausea and vomiting Associated symptoms: no chest pain, no diarrhea, no dysuria, no hematemesis, no hematochezia, no hematuria, no melena and no shortness of breath Review of Systems Respiratory: Negative for shortness of breath. Cardiovascular: Negative for chest pain. Gastrointestinal: Positive for abdominal pain, nausea and vomiting. Negative for diarrhea, hematemesis, hematochezia and melena. Genitourinary: Negative for dysuria and hematuria. All other systems reviewed and are negative. Past Medical History Diagnosis Date ??? Anxiety Allergies Allergen Reactions ??? Codeine ??? Morphine And Related ??? Toradol [Ketorolac Tromethamine] ??? Tramadol Past Surgical History Procedure Laterality Date ??? Cholecystectomy ??? Dilatation and curettage History reviewed. No pertinent family history. Social [...] developed and well-nourished. No distress. HENT: Head: Normocephalic. Mouth/Throat: Oropharynx is clear and moist and mucous membranes are normal. Moderate contusion on left forehead. Eyes: Conjunctivae and EOM are normal. Pupils are equal, round, and reactive to light. Neck: Normal range of motion. Neck supple. Cardiovascular: Normal rate, regular rhythm and normal heart sounds. Exam reveals no gallop and no friction rub. No murmur heard. Pulmonary/Chest: Effort normal. No respiratory distress. She has no wheezes. She has no rales. She exhibits no tenderness. Abdominal: Soft. Bowel sounds are normal. She exhibits no mass. There is tenderness (Moderate TTP in RLQ, RUQ and suprapubic region). There is no rebound and no guarding. Musculoskeletal: Normal range of motion. She exhibits no edema, tenderness (No C spine tenderness) or deformity. Lymphadenopathy: She has no cervical adenopathy. Neurological: She is alert and oriented to person, place, and time. Skin: Skin is warm and dry. Psychiatric: She has a normal mood and affect. Her behavior is normal. Nursing note and vitals reviewed. Procedures ED Course ED Course Comment By Time Patient is being discharged home with instructions to return if pain returns. Micaela Tovar 04/19 0238 Recent Results (from the past 24 hour(s)) Urinalysis With / Culture If Indicated Collection Time: 04/18/16 9:20 PM Result Value Ref Range Color, UA Yellow Yellow, Straw Appearance, UA Clear Clear pH, UA 6.0 5.0 - 8.0 Specific [place], UA 1.006 1.001 - 1.030 Glucose, UA Negative Negative Ketones, UA Negative Negative Bilirubin, UA Negative Negative Blood, UA Negative Negative Protein, UA Negative Negative Leuk Esterase, UA Negative Negative Nitrite, UA Negative Negative Urobilinogen, UA 0.2 E.U./dL 0.2 - 1.0 E.U./dL POCT , urine Collection Time: 04/18/16 9:20 PM Result Value Ref Range HCG, Urine, QL Negative Negative Lot Number [id number] Internal Positive Control Positive Internal Negative Control Negative Comprehensive Metabolic Panel Collection Time: 04/18/16 9:29 PM Result Value Ref Range Glucose 89 70 - 100 mg/dL BUN 5 (L) 9 - 23 mg/dL Creatinine 0.60 0.60 - 1.30 mg/dL Sodium 137 132 - 146 mmol/L Potassium 3.6 3.5 - 5.5 mmol/L Chloride 104 99 - 109 mmol/L CO2 21.0 20.0 - 31.0 mmol/L Calcium 9.7 8.7 - 10.4 mg/dL Total Protein 7.2 5.7 - 8.2 g/dL Albumin 4.30 3.20 - 4.80 g/dL ALT (SGPT) 255 (H) 7 - 40 U/L AST (SGOT) 64 (H) 0 - 33 U/L Alkaline Phosphatase 125 (H) 25 - 100 U/L Total Bilirubin 0.6 0.3 - 1.2 mg/dL eGFR Non Amer 118 >60 mL/min/1.73 Globulin 2.9 gm/dL A/G Ratio 1.5 1.5 - 2.5 g/dL BUN/Creatinine Ratio 8.3 7.0 - 25.0 Anion Gap 12.0 (H) 3.0 - 11.0 mmol/L Lipase Collection Time: 04/18/16 9:29 PM Result Value Ref Range Lipase 26 6 - 51 U/L Light Blue Top Collection Time: 04/18/16 9:29 PM Result Value Ref Range Extra Tube hold for add-on Green Top (Gel) Collection Time: 04/18/16 9:29 PM Result Value Ref Range Extra Tube Hold for add-ons. Lavender Top Collection Time: 04/18/16 9:29 PM Result Value Ref Range Extra Tube hold for add-on Gold Top - SST Collection Time: 04/18/16 9:29 PM Result Value Ref Range Extra Tube Hold for add-ons. CBC Auto Differential Collection Time: 04/18/16 9:29 PM Result Value Ref Range WBC 9.10 3.50 - 10.80 10*3/mm3 RBC 4.37 3.89 - 5.14 10*6/mm3 Hemoglobin 13.5 11.5 - 15.5 g/dL Hematocrit 40.8 34.5 - 44.0 % MCV 93.4 80.0 - 99.0 fL MCH 30.9 27.0 - 31.0 pg MCHC 33.1 32.0 - 36.0 g/dL RDW 13.0 11.3 - 14.5 % RDW-SD 44.7 37.0 - 54.0 fl MPV 9.8 6.0 - 12.0 fL Platelets 248 150 - 450 10*3/mm3 Neutrophil % 53.2 41.0 - 71.0 % Lymphocyte % 37.3 24.0 - 44.0 % Monocyte % 5.2 0.0 - 12.0 % Eosinophil % 3.7 (H) 0.0 - 3.0 % Basophil % 0.4 0.0 - 1.0 % Immature Grans % 0.2 0.0 - 0.6 % Neutrophils, Absolute 4.84 1.50 - 8.30 10*3/mm3 Lymphocytes, Absolute 3.39 0.60 - 4.80 10*3/mm3 Monocytes, Absolute 0.47 0.00 - 1.00 10*3/mm3 Eosinophils, Absolute 0.34 (H) 0.10 - 0.30 10*3/mm3 Basophils, Absolute 0.04 0.00 - 0.20 10*3/mm3 Immature Grans, Absolute 0.02 0.00 - 0.03 10*3/mm3 Note: In addition to lab results from this visit, the labs listed above may include labs taken at another facility or during a different encounter within the last 24 hours. Please correlate lab timeswith ED admission and discharge times for further clarification of the services performed during this visit. CT Abdomen Pelvis With Contrast Final Result Abnormal No evidence of appendicitis or other acute inflammatory process. Fluid involving the right colon without associated inflammatory change. Consider nonspecific diarrheal disease. Medial right breast soft tissue density nodule measuring 1.7 cm. Consider diagnostic mammography. Incomplete imaging of right middle lobe pulmonary nodule measuring only 5 mm. Dedicated imaging of the chest as clinically warranted. Additional findings as above. THIS DOCUMENT HAS BEEN ELECTRONICALLY SIGNED BY MOSES RAMOS MD CT Head Without Contrast Final Result Abnormal No acute intracranial abnormality. THIS DOCUMENT HAS BEEN ELECTRONICALLY SIGNED BY MOSES RAMOS MD Vitals: 04/19/16 0139 04/19/16 0141 04/19/16 0143 04/19/16 0204 BP: 117/77 120/88 124/90 BP Location: Patient Position: Lying Sitting Standing Pulse: 61 54 65 Resp: Temp: TempSrc: SpO2: 98% Weight: Height: Medications sodium chloride 0.9 % bolus 2,000 mL (0 mL Intravenous Stopped 04/19/16 9335) ondansetron (ZOFRAN) injection 4 mg (4 mg Intravenous Given 04/18/16 5942) pantoprazole (PROTONIX) injection 80 mg (80 mg Intravenous Given 04/18/162241) aluminum-magnesium hydroxide-simethicone (MAALOX/MYLANTA) suspension 30 mL (30 mL Oral Given 04/18/162241) lidocaine viscous (XYLOCAINE) 2 % mouth solution 15 mL (15 mL Mouth/Throat Given 04/18/162241) promethazine (PHENERGAN) injection 12.5 mg (12.5 mg Intravenous Given 04/18/16 224) HYDROmorphone (DILAUDID) injection 0.5 mg (0.5 mg Intravenous Given 04/18/16 2352) diatrizoate meglumine-sodium (GASTROGRAFIN) 66-10 % solution 15 mL (15 mL Oral Given 04/18/162251) iopamidol (ISOVUE-300) 61 % injection 100 mL (100 mL Intravenous Given 04/19/16 0018) ondansetron (ZOFRAN) injection 4 mg (4 mg Intravenous Given 04/18/16 2349) LORazepam (ATIVAN) injection 0.5 mg (0.5 mg Intravenous Given 04/19/16 0145) ECG/EMG Results (last 24 hours) No results found for the last 24 hours. Pt felt much better following Ativan and pain medication. Anxiety appears to play a role in her current presentation. MDM Final diagnoses: Lung mass Breast mass Nausea vomiting and diarrhea Liver enzyme elevation Generalized abdominal pain Syncope, unspecified syncope type Orthostatic syncope Documentation assistance provided by gaetano Tovar. Information recorded by the scribe was done at my direction and has been verified and validated by me. Micaela Tovar 04/18/16 0595 Micaela Tovar 04/19/16 0237 Dez Rice DO 04/19/16 0850 documented in this encounter Plan of Treatment Not on file documented as of this encounter Procedures Procedure Name Priority Date/Time Associated Diagnosis Comments CT ABDOMEN PELVIS W CONTRAST STAT 04/19/2016 12:[address] HEAD WO CONTRAST STAT 04/19/2016 1 2:16 AM EST GOLD TOP - SST STAT 04/18/2016 9:29 PM EST DK GREEN TOP STAT 04/18/2016 9:29 PM EST CBC WITH AUTO DIFFERENTIAL STAT 04/18/2016 9:29 PM EST LAVENDER TOP STAT 04/18/2016 9:29 PM EST LIGHT BLUE TOP STAT 04/18/2016 9:29 PM EST RAINBOW DRAW STAT 04/18/2016 9:29 PM EST CBC AND DIFFERENTIAL STAT 04/18/2016 9:29 PM EST LIPASE STAT 04/18/2016 9:29 PM EST COMPREHENSIVE METABOLIC PANEL STAT 04/18/2016 9:29 PM EST URINALYSIS W/ CULTURE IF INDICATED STAT 04/18/2016 9:20 PM EST POCT PEFORM URINE STAT 04/18/2016 9:20 PM EST documented in this encounter Results * (ABNORMAL) CT Abdomen Pelvis With Contrast (04/19/2016 12:18 AM EST) Anatomical Region Laterality Modality Abdomen, Pelvis N/A Computed Tomogra phy 04/18/2016 10:4 5 PM EST Impressions 04/19/2016 12:46 AM EST ??No evidence of appendicitis or other acute inflammatory process. ??Fluid involving the right colon without associated inflammatory change. ?? Consider nonspecific diarrheal disease. ??Medial right breast soft tissue density nodule measuring 1.7 cm. ??Consider diagnostic mammography. ??Incomplete imaging of right middle lobe pulmonary nodule measuring only 5 mm. Dedicated imaging of the chest as clinically warranted. ??Additional findings as above. THIS DOCUMENT HAS BEEN ELECTRONICALLY SIGNED BY MOSES Helm 04/19/2016 12:46 AM EST EXAM: ??CT Abdomen and Pelvis With Intravenous Contrast. CLINICAL HISTORY: ??30 years old, female; Pain; Other: See notes; Prior surgery; Additional info: Rlq pain TECHNIQUE: ??Axial computed tomography images of the abdomen and pelvis with intravenous contrast. ??This CT exam was performed using one or more of the following dose reduction techniques: ??automated exposure control, adjustment of the mA and/or kV according to patient size, and/or use of iterative reconstruction technique. ??Coronal reformatted images were created and reviewed. CONTRAST: ??203 mL of isovue 300 administered intravenously. EXAM DATE/TIME: ??04/18/2016 10:45 PM COMPARISON: ??No relevant prior studies available. FINDINGS: ??Lower thorax: ??Incomplete imaging of right middle lobe nodule measuring 5 mm. There are bibasilar dependent changes. ??Soft tissue density nodule involving the medial right breast measuring 1.7 cm. ABDOMEN: ??Liver: ??Unremarkable. ??No mass. ??Gallbladder and bile ducts: ??Previous cholecystectomy. ??No ductal dilation. ??Pancreas: ??Unremarkable. ??No mass. ??No ductal dilation. ??Spleen: ??Unremarkable. ??No splenomegaly. ??Adrenals: ??Unremarkable. ??No mass. ??Kidneys and ureters: ??Unremarkable. ??No solid mass. ??No hydronephrosis. ??Stomach and bowel: ??Nonspecific fluid involving the right colon without associated colonic inflammation. ??No obstruction. ??No mucosal thickening. ??Appendix: ??Negative for acute appendicitis. PELVIS: ??Bladder: ??Unremarkable. ??No mass. ??Reproductive: ??Left ovary corpus luteal cyst measures 1.7 cm. ABDOMEN and PELVIS: ??Intraperitoneal space: ??Unremarkable. ??No free air. ??No significant fluid collection. ??Bones/joints: ??No acute fracture. ??No dislocation. ??Soft tissues: ??Unremarkable. ??Vasculature: ??Unremarkable. ??No abdominal aortic aneurysm. ??Lymph nodes: ??Unremarkable. ??No enlarged lymph nodes. Procedure Note Moses Ramos MD - 04/19/2016 EXAM: CT Abdomen and Pelvis With Intravenous Contrast. CLINICAL HISTORY: 30 years old, female; Pain; Other: See notes; Prior surgery; Additionalinfo: Rlq pain TECHNIQUE: Axial computed tomography images of the abdomen and pelvis withintravenous contrast. This CT exam was performed using one or more of the followingdose reduction techniques: automated exposure control, adjustment of the mAand/or kV according to patient size, and/or use of iterative reconstructiontechnique. Coronal reformatted images were created and reviewed. CONTRAST: 203 mL of isovue 300 administered intravenously. EXAM DATE/TIME: 04/18/2016 10:45 PM COMPARISON: No relevant prior studies available. FINDINGS: Lower thorax: Incomplete imaging of right middle lobe nodule measuring5 mm. There are bibasilar dependent changes. Soft tissue density noduleinvolving the medial right breast measuring 1.7 cm. ABDOMEN: Liver: Unremarkable. No mass. Gallbladder and bile ducts: Previous cholecystectomy. No ductaldilation. Pancreas: Unremarkable. No mass. No ductal dilation. Spleen: Unremarkable. No splenomegaly. Adrenals: Unremarkable. No mass. Kidneys and ureters: Unremarkable. No solid mass. Nohydronephrosis. Stomach and bowel: Nonspecific fluid involving the right colon without associated colonic inflammation. No obstruction. No mucosalthickening. Appendix: Negative for acute appendicitis. PELVIS: Bladder: Unremarkable. No mass. Reproductive: Left ovary corpus luteal cyst measures 1.7 cm. ABDOMEN and PELVIS: Intraperitoneal space: Unremarkable. No free air. No significantfluid collection. Bones/joints: No acute fracture. No dislocation. Soft tissues: Unremarkable. Vasculature: Unremarkable. No abdominal aortic aneurysm. Lymph nodes: Unremarkable. No enlarged lymph nodes. IMPRESSION: No evidence of appendicitis or other acute inflammatory process. Fluid involving the right colon without associated inflammatory change. Consider nonspecific diarrheal disease. Medial right breast soft tissue density nodule measuring 1.7 cm.Consider diagnostic mammography. Incomplete imaging of right middle lobe pulmonary nodule measuring only5 mm. Dedicated imaging of the chest as clinically warranted. Additional findings as above. THIS DOCUMENT HAS BEEN ELECTRONICALLY SIGNED BY MOSES RAMOS MD Dez Rice DO [facility] CT ORDERABLES Final Result * (ABNORMAL) CT Head Without Contrast (04/19/2016 12:16 AM EST) Anatomical Region Laterality Modality Head N/A Computed Tomogra phy 04/18/2016 10:4 2 PM EST Impressions 04/19/2016 12:38 AM EST ??No acute intracranial abnormality. THIS DOCUMENT HAS BEEN ELECTRONICALLY SIGNED BY MOSES RAMOS MD Narrative 04/19/2016 12:38 AM EST EXAM: ??CT Head Without Intravenous Contrast. CLINICAL HISTORY: ??30 years old, female; Pain; Other: See notes; Patient HX: N/v and ESPINOZA after syncopal episode that resulted in a fall; Additional info: Head injury , headache TECHNIQUE: ??Axial computed tomography images of the head/brain without intravenous contrast. ??This CT exam was performed using one or more of the following dose reduction techniques: ??automated exposure control, adjustment of the mA and/or kV according to patient size, and/or use of iterative reconstruction technique. EXAM DATE/TIME: ??04/18/2016 10:42 PM COMPARISON: ??No relevant prior studies available. FINDINGS: ??Brain: ??Unremarkable. ??No hemorrhage. ??No significant white matter disease. ?? No edema. ??Ventricles: ??Unremarkable. ??No ventriculomegaly. ??Bones/joints: ??Unremarkable. ??No acute fracture. ??Soft tissues: ??Mild left anterior frontal scalp soft tissue swelling. ??Sinuses: ??Patchy mucosal disease of the posterior ethmoid complex on the right. ??Mastoid air cells: ??Unremarkable as visualized. ??No mastoid effusion. Procedure Note Moses Ramos MD - 04/19/2016 EXAM: CT Head Without Intravenous Contrast. CLINICAL HISTORY: 30 years old, female; Pain; Other: See notes; Patient HX: N/v and HAafter syncopal episode that resulted in a fall; Additional info: Head injury , headache TECHNIQUE: Axial computed tomography images of the head/brain without intravenous contrast. This CT exam was performed using one or more of the followingdose reduction techniques: automated exposure control, adjustment of the mAand/or kV according to patient size, and/or use of iterative reconstructiontechnique. EXAM DATE/TIME: 04/18/2016 10:42 PM COMPARISON: No relevant prior studies available. FINDINGS: Brain: Unremarkable. No hemorrhage. No significant white matterdisease. No edema. Ventricles: Unremarkable. No ventriculomegaly. Bones/joints: Unremarkable. No acute fracture. Soft tissues: Mild left anterior frontal scalp soft tissue swelling. Sinuses: Patchy mucosal disease of the posterior ethmoid complex on the right. Mastoid air cells: Unremarkable as visualized. No mastoid effusion. IMPRESSION: No acute intracranial abnormality. THIS DOCUMENT HAS BEEN ELECTRONICALLY SIGNED BY MOSES RAMOS MD us Dezmike Rice IMG CT ORDERABLES Final Result * (ABNORMAL) CBC Auto Differential (04/18/2016 9:29 PM EST) WBC 9.10 3.50 - 10.80 10*3/mm3 04/18/2016 9:42 PM EST [facility] RBC 4.37 3.89 - 5.14 10*6/mm3 04/18/2016 9:42 PM [facility] Hemoglobin 13.5 11.5 - 15.5 g/dL 04/18/2016 9:42 PM [facility] Hematocrit 40.8 34.5 - 44.0 % 04/18/2016 9:42 PM [facility] MCV 93.4 80.0 - 99.0 fL 04/18/2016 9:42 PM [facility] MCH 30.9 27.0 - 31.0 pg 04/18/2016 9:42 PM [facility] MCHC 33.1 32.0 - 36.0 g/dL 04/18/2016 9:42 PM [facility] RDW 13.0 11.3 - 14.5 % 04/18/2016 9:42 PM [facility] RDW-SD 44.7 37.0 - 54.0 fl 04/18/2016 9:42 PM [facility] MPV 9.8 6.0 - 12.0 fL 04/18/2016 9:42 PM [facility] Platelets 248 150 - 450 10*3/mm3 04/18/2016 9:42 PM [facility] Neutrophil % 53.2 41.0 - 71.0 % 04/18/2016 9:42 PM [facility] Lymphocyte % 37.3 24.0 - 44.0 % 04/18/2016 9:42 PM [facility] Monocyte % 5.2 0.0 - 12.0 % 04/18/2016 9:42 PM [facility] Eosinophil % 3.7(H) 0.0 - 3.0 % 04/18/2016 9:42 PM [facility] Basophil % 0.4 0.0 - 1.0 % 04/18/2016 9:42 PM [facility] Immature Grans % 0.2 0.0 - 0.6 % 04/18/2016 9:42 PM [facility] Neutrophils, Absolute 4.84 1.50 - 8.30 10*3/mm3 04/18/2016 9:42 PM [facility] Lymphocytes, Absolute 3.39 0.60 - 4.80 10*3/mm3 04/18/2016 9:42 PM [facility] Monocytes, Absolute 0.47 0.00 - 1.00 10*3/mm3 04/18/2016 9:42 PM [facility] Eosinophils, Absolute 0.34(H) 0.10 - 0.30 10*3/mm3 04/18/2016 9:42 PM [facility] Basophils, Absolute 0.04 0.00 - 0.20 10*3/mm3 04/18/2016 9:42 PM [facility] Immature Grans, Absolute 0.02 0.00 - 0.03 10*3/mm3 04/18/2016 9:42 PM [facility] Blood Venipuncture / Unknown 04/18/2016 9:29 PM EST 04/18/2016 9:36 PM EST us Dez Rice DO LAB BLOOD ORDERABLES Final Resul t [facility]
[address] [place] [address], * Gold Top - SST (04/18/2016 9:29 PM EST) Extra Tube Hold for add-ons. 04/19/2016 2:03 AM [facility] Comment:Auto resulted. Blood Venipuncture / Unknown 04/18/2016 9:29 PM EST 04/18/2016 9:36 PM EST us Dez [facility] DO LAB BLOOD ORDER ONLY Final Resul t Performing Organization Address [facility] Phone Number [facility]
[address] [place] [address], * Lavender Top (04/18/2016 9:29 PM EST) Extra Tube hold for add-on 04/19/2016 2:03 AM EST [facility] Comment:Auto resulted Blood Venipuncture / Unknown 04/18/2016 9:29 PM EST 04/18/2016 9:36 PM EST us Dez [facility] DO LAB BLOOD ORDER ONLY Final Resul t Performing Organization Address [facility] Phone Number [facility]
[address] [place] [address], * Green Top (Gel) (04/18/2016 9:29 PM EST) Extra Tube Hold for add-ons. 04/19/2016 2:03 AM EST [facility] Comment:Auto resulted. Blood Venipuncture / Unknown 04/18/2016 9:29 PM EST 04/18/2016 9:36 PM EST us Dez [facility] DO LAB BLOOD ORDER ONLY Final Resul t Performing Organization Address [facility] Phone Number [facility]
[address] [place] [address], * Light Blue Top (04/18/2016 9:29 PM EST) Extra Tube hold for add-on 04/19/2016 2:03 AM EST [facility] Comment:Auto resulted Blood Venipuncture / Unknown 04/18/2016 9:29 PM EST 04/18/2016 9:36 PM EST [facility] DO LAB BLOOD ORDER ONLY Final Resul t Performing Organization Address City/[facility]/ZIP Co de Phone Number [facility]
[address] [place] [address], * Lipase (04/18/2016 9:29 PM EST) Lipase 26 6 - 51 U/L 04/18/2016 9:55 PM EST [facility] Blood Venipuncture / Unknown 04/18/2016 9:29 PM EST 04/18/2016 9:36 PM EST [employer] LAB BLOOD ORDERABLES Final Resul t Performing Organization Address [facility] de Phone Number [facility]
[address] [place] [address], [place] [phone] * (ABNORMAL) Comprehensive Metabolic Panel (04/18/2016 9:29 PM EST) Pathologist [facility] Glucose 89 70 - 100 mg/dL 04/18/2016 9:55 PM [facility] BUN 5(L) 9 - 23 mg/dL 04/18/2016 9:55 PM [facility] Creatinine 0.60 0.60 - 1.30 mg/dL 04/18/2016 9:55 PM [facility] Sodium 137 132 - 146 mmol/L 04/18/2016 9:55 PM [facility] Potassium 3.6 3.5 - 5.5 mmol/L 04/18/2016 9:55 PM [facility] Chloride 104 99 - 109 mmol/L 04/18/2016 9:55 PM [facility] CO2 21.0 20.0 - 31.0 mmol/L 04/18/2016 9:55 PM [facility] Calcium 9.7 8.7 - 10.4 mg/dL 04/18/2016 9:55 PM [facility] Total Protein 7.2 5.7 - 8.2 g/dL 04/18/2016 9:55 PM [facility] Albumin 4.30 3.20 - 4.80 g/dL 04/18/2016 9:55 PM [facility] ALT (SGPT) 255(H) 7 - 40 U/L 04/18/2016 9:55 PM [facility] AST (SGOT) 64(H) 0 - 33 U/L 04/18/2016 9:55 PM [facility] Alkaline Phosphatase 125(H) 25 - 100 U/L 04/18/2016 9:55 PM [facility] Total Bilirubin 0.6 0.3 - 1.2 mg/dL 04/18/2016 9:55 PM [facility] eGFR Non Amer 118 >60 mL/min/1.7 3 04/18/2016 9:55 PM [facility] Globulin 2.9 gm/dL 04/18/2016 9:55 PM [facility] A/G Ratio 1.5 1.5 - 2.5 g/dL 04/18/2016 9:55 PM [facility] BUN/Creatinine Ratio 8.3 7.0 - 25.0 04/18/2016 9:55 PM [facility] Anion Gap 12.0(H) 3.0 - 11.0 mmol/L 04/18/2016 9:55 PM [facility] Blood Venipuncture / Unknown 04/18/2016 9:29 PM EST 04/18/2016 9:36 PM EST [facility] - 04/18/2016 9:55 PM EST [employer] Guidelines Stage ? Description ? GFR ? 1 ? Normal or High ?90+ 2 ? Mild decrease ?60-89 3 ? Moderate decrease ? 30-59 4 ? Severe decrease ? 15-29 5 ? Kidney failure ? <15 us [facility] DO LAB BLOOD ORDERABLES Final Resul t Performing Organization Address [facility] de Phone Number [facility]
[address] [place] [address], * POCT , urine (04/18/2016 9:20 PM EST) HCG, Urine, QL Negative Negative [facility] Lot Number [id number] [facility] Internal Positive Control Positive [facility] Internal Negative Control Negative [facility] Urine 04/18/2016 9:20 PM EST [facility] DO POINT OF CARE TEST ORDERABLES Fi nal Result Performing Organization Address [facility] de Phone Number [facility]
[address] [id number], [place] [phone] * Urinalysis With / Culture If Indicated (04/18/2016 9:20 PM EST) Color, UA Yellow Yellow, Straw 04/18/2016 9:30 PM EST [facility] Appearance, UA Clear Clear 04/18/2016 9:30 PM EST [facility] pH, UA 6.0 5.0 - 8.0 04/18/2016 9:30 PM EST [facility] Specific [place], UA 1.006 1.001 - 1.030 04/18/2016 9:30 PM EST [facility] Glucose, UA Negative Negative 04/18/2016 9:30 PM EST [facility] Ketones, UA Negative Negative 04/18/2016 9:30 PM EST [facility] Bilirubin, UA Negative Negative 04/18/2016 9:30 PM EST [facility] Blood, UA Negative Negative 04/18/2016 9:30 PM EST [facility] Protein, UA Negative Negative 04/18/2016 9:30 PM EST [facility] Leuk Esterase, UA Negative Negative 04/18/2016 9:30 PM EST [facility] Nitrite, UA Negative Negative 04/18/2016 9:30 PM [facility] Urobilinogen, UA 0.2 E.U./dL 0.2 - 1.0 E.U./dL 04/18/2016 9:30 PM EST [facility] Urine Urine specimen collection, clean catch / Unknown Collection / Unknown 04/18/2016 9:20 PM EST 04/18/2016 9:25 PM EST Narrative [facility] - 04/18/2016 9:30 PM EST Urine microscopic not indicated. us Dez Rice DO URINE ORDERABLES Final Result [facility]
[address] [place] [address], [place] [phone] documented in this encounter Visit Diagnoses Diagnosis Lung mass- Primary Swelling, mass, or lump in chest Breast mass Lump or mass in breast Nausea vomiting and diarrhea Liver enzyme elevation Generalized abdominal pain Abdominal pain, generalized Syncope, unspecified syncope type Orthostatic syncope documented in this encounter Administered Medications Inactive Administered Medications - up to 3 most recent administrations Medication Order MAR Action Action Date Dose Rate Site aluminum-magnesium hydroxide-simethicone (MAALOX/MYLANTA) suspension 30 mL 30 mL, Oral, Once, On Thu04/18/16 at 2242, For 1 dose, Mix with viscous lidocaine in this panel Given 04/18/2016 10:42 PM EST 30 mL diatrizoate meglumine-sodium (GASTROGRAFIN) 66-10 % solution - ADS Override Pull Starting on Thu04/18/16 at 2251, For 1 dose, Created by cabinet override Used as oral contract for CT of abdomen and/or pelvis. Give 30 mL mixed in 24 oz non-carbonated liquid for each CT scan. diatrizoate meglumine-sodium (GASTROGRAFIN) 66-10 % solution 15 mL 15 mL, Oral, Once, On Thu04/18/16 at 2305, For 1 dose, Used as oral contract for CT of abdomen and/or pelvis. Give 30 mL mixed in 24 oz non-carbonated liquid for each CT scan. Given 04/18/2016 10:52 PM EST 15 mL HYDROmorphone (DILAUDID) injection 0.5 mg 0.5 mg, Intravenous, Every 10 Minutes PRN, Severe Pain, Starting on Thu04/18/16 at 2246, For 2 doses Given 04/18/2016 11:52 PM EST 0.5 mg Given 04/18/2016 10:51 PM EST 0.5 mg HYDROmorphone (DILAUDID) injection 0.5 mg 0.5 mg, Intravenous, Every 10 Minutes PRN, Severe Pain, Starting on 04/19/16 at 0134, For 2 doses Given 04/19/2016 1:45 AM EST 0.5 mg iopamidol (ISOVUE-300) 61 % injection 100 mL 100 mL, Intravenous, Once in Imaging, On 04/19/16 at 0020, For 1 dose Given 04/19/2016 12:18 AM EST 100 mL lidocaine viscous (XYLOCAINE) 2 % mouth solution 15 mL 15 mL, Mouth/Throat, Once, On Thu04/18/16 at 2242, For 1 dose, Mix with alum / mag hydroxide / simeth (mylanta) in this panel Given 04/18/2016 10:42 PM EST 15 mL LORazepam (ATIVAN) injection 0.5 mg 0.5 mg, Intravenous, Once, On 04/19/16 at 0136, For 1 dose Given 04/19/2016 1:45 AM EST 0.5 mg ondansetron (ZOFRAN) 4 MG/2ML injection - ADS Override Pull Starting on Thu04/18/16 at 2348, For 1 dose, Created by cabinet override ondansetron (ZOFRAN) injection 4 mg 4 mg, Intravenous, Once, On Thu04/18/16 at 2239, For 1 dose, Maximum Dose 4 mg IV every 6 hours per pharmacy and therapeutics committee Given 04/18/2016 10:39 PM EST 4 mg ondansetron (ZOFRAN) injection 4 mg 4 mg, Intravenous, Once, On 04/19/16 at 0023, For 1 dose Given 04/18/2016 11:49 PM EST 4 mg pantoprazole (PROTONIX) injection 80 mg 80 mg, Intravenous, Once, On Thu04/18/16 at 2242, For 1 dose, Dilute with 10 mL of 0.9% NaCl and give IV push over 2 minutes. Given 04/18/2016 10:42 PM EST 80 mg promethazine (PHENERGAN) injection 12.5 mg 12.5 mg, Intravenous, Once, On Thu04/18/16 at 2248, For 1 dose, If given IV, dilute in 20 mL of NS. Max rate: 25 mg/min If giving IV, dilute dose in 20 mL NS and slow IV push over 3-5 minutes. Administer through large bore vein (not hand or wrist) through running IV line at port furthest from patient's vein. Given 04/18/2016 10:48 PM EST 12.5 mg sodium chloride 0.9 % bolus 2,000 mL 2,000 mL, Intravenous, Once, On Thu04/18/16 at 2238, For 1 dose New Bag 04/18/2016 10:38 PM EST 2,000 mL sodium chloride 0.9 % flush 10 mL 10 mL, Intravenous, As Needed, Line Care, Starting on Thu04/18/16 at 2043 sodium chloride 0.9 % infusion 125 mL/hr, Intravenous, Continuous, Starting on Thu04/18/16 at 2238 documented in this encounter Active and Recently Administered Medications Times are shown in EST. Scheduled Medication Order 04/17/2016 04/18/2016 04/19/2016 aluminum-magnesium hydroxide-simethicone (MAALOX/MYLANTA) suspension 30 mL (COMPLETED) 30 mL, Oral, Once, On Thu04/18/16 at 2242, For 1 dose, Mix with viscous lidocaine in this panel 224 (Given - Provider: Marly Paige RN) diatrizoate meglumine-sodium (GASTROGRAFIN) 66-10 % solution 15 mL (COMPLETED) 15 mL, Oral, Once, On Thu04/18/16 at 2305, For 1 dose, Used as oral contract for CT of abdomen and/or pelvis. Give 30 mL mixed in 24 oz non-carbonated liquid for each CT scan. 225 (Given - Provider: Marly Paige RN) iopamidol (ISOVUE-300) 61 % injection 100 mL (COMPLETED) 100 mL, Intravenous, Once in Imaging, On 04/19/16 at 0020, For 1 dose 0018 (Given - Provid er: Thor Reyes) lidocaine viscous (XYLOCAINE) 2 % mouth solution 15 mL (COMPLETED) 15 mL, Mouth/Throat, Once, On Thu04/18/16 at 2242, For 1 dose, Mix with alum / mag hydroxide / simeth (mylanta) in this panel 2241 (Given - Provider: Marly Paige RN) LORazepam (ATIVAN) injection 0.5 mg (COMPLETED) 0.5 mg, Intravenous, Once, On 04/19/16 at 0136, For 1 dose 0145 (Given - Provid er: Marly Paige RN) ondansetron (ZOFRAN) injection 4 mg (COMPLETED) 4 mg, Intravenous, Once, On Thu04/18/16 at 2239, For 1 dose, Maximum Dose 4 mg IV every 6 hours per pharmacy and therapeutics committee 2238 (Given - Provider: aMrly Paige RN) ondansetron (ZOFRAN) injection 4 mg (COMPLETED) 4 mg, Intravenous, Once, On Thu04/19/16 at 0023, For 1 dose 2349 (Given - Provider: Marly Paige RN) pantoprazole (PROTONIX) injection 80 mg (COMPLETED) 80 mg, Intravenous, Once, On Thu04/18/16 at 2242, For 1 dose, Dilute with 10 mL of 0.9% NaCl and give IV push over 2 minutes. 2242 (Given - Provider: Marly Paige RN) promethazine (PHENERGAN) injection 12.5 mg (COMPLETED) 12.5 mg, Intravenous, Once, On Thu04/18/16 at 2248, For 1 dose, If given IV, dilute in 20 mL of NS. Max rate: 25 mg/min If giving IV, dilute dose in 20 mL NS and slow IV push over 3-5 minutes. Administer through large bore vein (not hand or wrist) through running IV line at port furthest from patient's vein. 2248 (Given - Provider: Marly Paige RN) sodium chloride 0.9 % bolus 2,000 mL (COMPLETED) 2,000 mL, Intravenous, Once, On Thu04/18/16 at 2238, For 1 dose 2238 (New Bag - Provider: Marly Paige RN) 0357 (Stopped - Provider: Marly Paige RN) Continuous Medication Order 04/17/2016 04/18/2016 04/19/2016 sodium chloride 0.9 % infusion 125 mL/hr, Intravenous, Continuous, Starting on Thu04/18/16 at 2238 2238 (Not Given - Provider: Marly Paige RN - Reason: Given from running infusion) PRN Medication Order 04/17/2016 04/18/2016 04/19/2016 HYDROmorphone (DILAUDID) injection 0.5 mg (COMPLETED) 0.5 mg, Intravenous, Every 10 Minutes PRN, Severe Pain, Starting on Thu04/18/16 at 2246, For 2 doses 2251 (Given - Provider: Marly Paige RN)2352 (Given - Provider: Marly Paige RN) HYDROmorphone (DILAUDID) injection 0.5 mg 0.5 mg, Intravenous, Every 10 Minutes PRN, Severe Pain, Starting on Thu04/19/16 at 0134, For 2 doses 0145 (Given - Provid er: Marly Paige RN) sodium chloride 0.9 % flush 10 mL 10 mL, Intravenous, As Needed, Line Care, Starting on Thu04/18/16 at 2043 documented in this encounter Care Teams Processing Technician Relationship Specialty Start Date End Date Provider, [place] [address] PCP - General 02/18/16 09/30/18 documented as of this encounter
--- OUTSIDE RECORDS SUMMARY | 2024-02-03 15:06 | XMS_ITS | Referral Summary ---
Author Organization [facility] Address [address] [place] [address] Phone Care Team Providers Care [employer] T[employer] Name Role Phone Unavailable Primary Care Provider Unavailabl e Allergies Active Allergy Reactions Criticality Noted Date Comments Prochlorperazine Other (See Comments) Lock jaw Droperidol Other (See Comments) 06/16/2023 I get lockjaw Medications LORazepam (ATIVAN) 1 mg Oral Tablet Take by mouth every 8 hours. Active pregabalin (LYRICA) 50 mg Oral Capsule Take by mouth 3 times daily. Active Social History Tobacco Use Types Packs/Day Years Used Date Smoking Tobacco: Every Day Cigarettes Tobacco Cessation:Ready to Q uit: Not Asked; Counseling Given: Not Answered Alcohol Use Standard Drinks/Week Comments Not Currently 0 (1 standard drink = 0.6 oz pur e alcohol) Comments No Sex and Gender Information Value Date Recorded Sex Assigned at Not on file Legal Sex Female 10:39 AM EDT Gender Identity Not on file Sexual Orientation Not on file Last Filed Vital Signs Vital Sign Reading Time Taken Comments Blood Pressure 141/70 06/16/2023 11:02 AM EDT Pulse 110 06/16/2023 10:44 AM EDT Temperature 36.7 ??C (98 ??F) 06/16/2023 10:44 AM EDT Respiratory Rate 18 06/16/2023 10:44 AM EDT Oxygen Saturation 99% 06/16/2023 10:44 AM EDT Inhaled Oxygen Concentration - - Weight 98 kg (216 lb) 06/16/2023 10:44 AM EDT Height 165.1 cm (5' 5 ) 06/16/2023 10:44 AM EDT Body Mass Index 35.94 06/16/2023 10:44 AM EDT Plan of Treatment Not on file Insurance [employer]
--- OUTSIDE RECORDS SUMMARY | 2024-02-03 15:06 | XMS_ITS | Encounter Summary ---
Author Organization [place] [address] Care Team Providers Care Sports Development Officer Name Role Phone Unavailable Primary Care Provider Unavailabl e Reason for Visit * Reason Comments Abdominal Pain Upper left to back w ith emesis. Hx of chronic pancreatitis Encounter Details Date Type Department Care Team (Late st Contact Info) Description 06/16/2023 10:58 AM EDT - 06/16/2023 1:11 PM EDT Emergency [facility] [address] [facility] [place] [address] Hetal Huntley, DO [address] [place] [address] Abdominal pain complicating (Primary Dx) Discharge Disposition: Home or Self [...] Mass Index 35.94 06/16/2023 10:44 AM EDT documented in this encounter Discharge Instructions * Discharge Instructions* Hetal Huntley DO - 06/16/2023 12:55 PM EDT Follow-up with Dr. Hetal Mason at the [facility]. You are 8 weeks . Follow a low-fat diet to avoid exacerbating your abdominal pain.. Stop taking Lyrica as it is not safe in . * Attachments The following attachments cannot be sent through Care Everywhere. * symptoms (Azerbaijani) documented in this encounter Medications at Time of Discharge LORazepam (ATIVAN) 1 mg Oral Tablet Take by mouth every 8 hours. pregabalin (LYRICA) 50 mg Oral Capsule Take by mouth 3 times daily. documented as of this encounter Discharge Disposition Disposition Code Departure Means Destination Comment s Home or Self [facility] documented in this encounter ED Notes * Hetal Huntley DO - 06/16/2023 10:39 AM EDT CHIEF COMPLAINT Chief Complaint Patient presents with Abdominal Pain Upper left to back with emesis. Hx of chronic pancreatitis HPI Lila Mcnally is a 37 y.o. female with history significant for chronic pancreatitis s/p cholecystectomy and ERCP who presents for LUQ abdominal pain. Surgery was 5 years ago, but has recurrence of LUQ pain. Usually a dull ache but today is sharp severe and associated with vomiting. LUQ and radiates into left back. No diarrhea or constipation. No fever or chills. States not . No urinary symptoms or hematuria. REVIEW OF SYSTEMS See HPI for pertinent positives and negative. Otherwise reviewed and noncontributory. PAST MEDICAL HISTORY History reviewed. No pertinent past medical history. FAMILY HISTORY No family history on file. SOCIAL HISTORY Social History Tobacco Use Smoking status: Every Day Types: Cigarettes Vaping Use Vaping status: Never Used Substance and Sexual Activity Alcohol use: Not Currently Drug use: Yes Types: Marijuana SURGICAL HISTORY Past Surgical History: Procedure Laterality Date GALLBLADDER SURGERY CURRENT MEDICATIONS No current facility-administered medications for this encounter. Current Outpatient Medications: LORazepam (ATIVAN) 1 mg Oral Tablet, Take by mouth every 8 hours., Disp: , Rfl: pregabalin (LYRICA) 50 mg Oral Capsule, Take by mouth 3 times daily., Disp: , Rfl: ALLERGIES Allergies Allergen Reactions Compazine [Prochlorperazine] Other (See Comments) Lock jaw Droperidol Other (See Comments) I get lockjaw PHYSICAL EXAM VITAL SIGNS: BP 141/70 Pulse 110 Temp 98 ??F (36.7 ??C) Resp 18 Ht 5' 5 (1.651 m) Wt 216lb (98 kg) LMP 05/17/2023 SpO2 99% BMI 35.94 kg/m?? Constitutional: Well developed, Well nourished, No acute distress, Non-toxic appearance. HENT: Normocephalic, Atraumatic, Bilateral external ears normal, Oropharynx moist, No oral exudates, Nose normal. Eyes: Sclera nonicteric conjunctiva normal, No discharge. Neck: Normal range of motion, No tenderness, Supple, No stridor. Cardiovascular: Normal heart rate, Normal rhythm, No murmurs, No rubs, No gallops. Thorax & Lungs: Normal breath sounds, No respiratory distress, No wheezing, No chest tenderness. Abdomen: Bowel sounds normal, Soft, mild left upper tenderness, No masses, No pulsatile masses. Skin: Warm, Dry, No erythema, No rash. Back: No tenderness, No CVA tenderness. Extremities: Intact distal pulses, No edema, No tenderness, No cyanosis, No clubbing. Neurologic: Alert & oriented x 3, Normal motor function, Normal sensory function, No focal deficits noted. RADIOLOGY/PROCEDURES Results for orders placed or performed during the hospital encounter of 06/16/23 CBC WITH DIFF Result Value Ref Range WBC 7.1 3.7 - 10.3 x10(3)/mcL RBC 4.02 3.90 - 5.20 x10(6)/mcL Hgb 10.9 (L) 11.2 - 15.7 g/dL Hct 35.0 34.0 - 45.0 % MCV 87.1 80.0 - 100.0 fL MCH 27.1 26.0 - 34.0 pg MCHC 31.1 30.7 - 35.5 g/dL RDW 16.1 (H) <=14.9 % Platelet 227 155 - 369 x10(3)/mcL MPV 9.3 8.8 - 12.5 fL Neut Percent 64.8 % Imm Gran% 0.3 % Lymph Percent 28.8 % [place]amo Percent 4.6 % Eos Percent 1.1 % Baso Percent 0.4 % Neut # 4.6 1.6 - 6.1 x10(3)/mcL IMMGRAN# 0.0 0.0 - 0.1 x10(3)/mcL Lymph # 2.1 1.2 - 3.9 x10(3)/mcL Coamo # 0.3 0.3 - 0.9 x10(3)/mcL Eos# 0.1 0.0 - 0.5 x10(3)/mcL Baso # 0.0 0.0 - 0.1 x10(3)/mcL COMPREHENSIVE METABOLIC PANEL Result Value Ref Range Sodium 134 (L) 136 - 145 mmol/L Potassium 3.5 3.5 - 5.0 mmol/L Chloride 98 98 - 107 mmol/L Total CO2 19 (L) 22 - 29 mmol/L Anion Gap 17 (H) 7 - 16 mmol/L Calcium 9.0 8.6 - 10.4 mg/dL Glucose Lvl 92 70 - 99 mg/dL BUN 9 6 - 20 mg/dL Creatinine 0.43 (L) 0.51 - 1.30 mg/dL Albumin 3.8 3.5 - 5.2 gm/dL Total Protein 6.5 6.4 - 8.3 gm/dL Bili Total 0.2 0.2 - 1.3 mg/dL ALT 17 <=41 U/L AST 12 <=40 U/L Alk Phos 82 36 - 123 U/L eGFR (CKD-EPIcr 2020) 129 >=60 mL/min/1.73 m2 LIPASE LEVEL Result Value Ref Range Lipase Lvl 16 13 - 60 U/L UA W/REFLEX TO CULTURE Specimen: Urine Narrative The following orders were created for panel order UA W/REFLEX TO CULTURE. Procedure Abnormality Status --------- ------ URINALYSIS REFLEX[[id number]] EXTRA MALDONADO URINE CX[[id number]] Please view results for these tests on the individual orders. HUMAN CHORIONIC GONADOTROPIN QUANTITATIVE Result Value Ref Range Hcg Quant 72,413 (H) <5 mIU/mL Narrative Ingestion of preeti doses of biotin (>5 mg/day) taken within 8 hours of drawing blood sample can interfere with this immunoassay test. Female (non-): 0-4.9 mIU/mL Female (postmenopausal): 0-8.1 mIU/mL Indeterminate values for (e.g., 5-25 mIU/mL) may be confirmed with a repeat test in 48-72hours. Values in should double every 2-3 days for the first six weeks. COURSE & MEDICAL DECISION MAKING Pertinent Labs & Imaging studies reviewed. (See chart for details) Medications sodium chloride 0.9% syringe 5-10 mL (has no administration in time range) sodium chloride 0.9% IV line flush 50 mL (has no administration in time range) sodium chloride 0.9 % 1,000 mL IV bolus ( Intravenous IV Started 06/16/23 1157) morphine injection 4 mg (4 mg Intravenous Given 06/16/23 1152) ondansetron (ZOFRAN) injection 4 mg (4 mg Intravenous Given 06/16/23 1151) History was obtained from patient. Patient presents with left upper quadrant abdominal pain. She reports a history of chronic pancreatitis. She states the pain is acutely sharp today and different from her dull achy pain. She vomited in the car on her way to the [place] [facility]. Patient states she is not . IV established and laboratory studies were obtained. She was given morphine and Zofran for pain as well as IV fluids. Her test resulted positive. After this patient was registered, all of her records were available including multiple visits to healthcare over the last month and prior. She has had positive test x 5 at [facility] demonstrating an IUP with heart tones last week. Patient was confronted with this information and states they never told me and asked surprised that she is . Nevertheless her hCG is appropriately rising. Her laboratory studies are reassuring with no elevation of LFTs or lipase. All laboratory studies from recent [facility] visits were also reviewed. This appears to be an acute on chronic problem. Her precludes further imaging at this time which is notfelt warranted given the reassuring tests and physical exam. She was instructed to stop Lyrica if taking until discussed with her [facility]. Patient deemed stable for discharge and outpatient followup. Patient expresses understanding of plan and return precautions were discussed, specifically fevers or uncontrolled pain. Patient instructed to follow up with an [facility], but may return to the emergency department at anytime for persistent,worsening symptoms or concerns. Prescriptions at discharge: ED Current Prescriptions None FINAL IMPRESSION 1. Abdominal pain complicating Condition: Stable In cases where narcotics are prescribed, DAMIAN report was obtained, reviewed, and made part of record. After examining available information, and risks of prescribing or dispensing controlled substances was explained to the patient (including non-treatment or other treatment), it is considered medically appropriate to administer narcotics as prescribed. Critical care was administered to the patient for 0 minutes. This time excludes procedure time. This chart was completed using voice recognition technology and may contain unintended errors Hetal Huntley DO 06/16/23 1259 documented in this encounter Plan of Treatment Not on file documented as of this encounter Procedures Procedure Name Priority Date/Time Associated Diagnosis Comments CBC WITH DIFF STAT 06/16/2023 11:49 AM EDT HUMAN CHORIONIC GONADOTROPIN QUANTITATIVE STAT 06/16/2023 11:42 AM EDT LIPASE LEVEL STAT 06/16/2023 11:42 AM EDT COMPREHENSIVE METABOLIC PANEL STAT 06/16/2023 11:42 AM EDT documented in this encounter Results * (ABNORMAL) CBC WITH DIFF (06/16/2023 11:49 AM EDT) WBC 7.1 3.7 - 10.3 x10(3)/mcL 06/16/2023 11:55 AM EDT [facility] RBC 4.02 3.90 - 5.20 x10(6)/mcL 06/16/2023 11:55 AM EDT [facility] Hgb 10.9(L) 11.2 - 15.7 g/dL 06/16/2023 11:55 AM [facility] Hct 35.0 34.0 - 45.0 % 06/16/2023 11:55 AM [facility] MCV 87.1 80.0 - 100.0 fL 06/16/2023 11:55 AM [facility] MCH 27.1 26.0 - 34.0 pg 06/16/2023 11:55 AM [facility] MCHC 31.1 30.7 - 35.5 g/dL 06/16/2023 11:55 AM [facility] RDW 16.1(H) <=14.9 % 06/16/2023 11:55 AM [facility] Platelet 227 155 - 369 x10(3)/mcL 06/16/2023 11:55 AM [facility] MPV 9.3 8.8 - 12.5 fL 06/16/2023 11:55 AM [facility] Neut Percent 64.8 % 06/16/2023 11:55 AM [facility] Comment:Neutrophils equals s egs plus bands Imm Gran% 0.3 % 06/16/2023 11:55 AM [facility] Comment:Automated count of m etamyelocytes, myelocytes and promyelocytes. Lymph Percent 28.8 % 06/16/2023 11:55 AM [facility] Coamo Percent 4.6 % 06/16/2023 11:55 AM [facility] Eos Percent 1.1 % 06/16/2023 11:55 AM [facility] Baso Percent 0.4 % 06/16/2023 11:55 AM [facility] Neut # 4.6 1.6 - 6.1 x10(3)/mcL 06/16/2023 11:55 AM [facility] Comment:Neutrophils equals s egs plus bands IMMGRAN# 0.0 0.0 - 0.1 x10(3)/mcL 06/16/2023 11:55 AM [facility] Comment:Automated count of m etamyelocytes, myelocytes and promyelocytes. An absolute IG <0.1 is reported as 0.0. Lymph # 2.1 1.2 - 3.9 x10(3)/mcL 06/16/2023 11:55 AM EDT [facility] Coamo # 0.3 0.3 - 0.9 x10(3)/[facility] 06/16/2023 11:55 AM EDT [facility] Eos# 0.1 0.0 - 0.5 x10(3)/[facility] 06/16/2023 11:55 AM EDT [facility] Baso # 0.0 0.0 - 0.1 x10(3)/[facility] 06/16/2023 11:55 AM EDT [facility] Blood VENOUS BLOOD / Unknown Venipuncture / Unknown 06/16/2023 11:49 AM EDT 06/16/2023 11:52 AM EDT us Hetal Huntley DO HEMATOLOGY ORDERABLES Final Re sult Performing Organization Address [facility] Co de Phone Number [facility] [address] [place] [address] * (ABNORMAL) HUMAN CHORIONIC GONADOTROPIN QUANTITATIVE (06/16/2023 11:42 AM EDT) Hcg Quant 72,413(H) <5 mIU/mL 06/16/2023 12:31 PM EDT [facility] Blood VENOUS BLOOD / Unknown Venipuncture / Unknown 06/16/2023 11:42 AM EDT 06/16/2023 11:43 AM EDT Narrative [facility] - 06/16/2023 12:31 PM EDT Ingestion of preeti doses of biotin (>5 mg/day) taken within 8 hours of drawing blood sample can interfere with this immunoassay test. Female (non-): 0-4.9 mIU/mL Female (postmenopausal): 0-8.1 mIU/mL Indeterminate values for (e.g., 5-25 mIU/mL) may be confirmed with a repeat test in 48-72 hours. Values in should double every 2-3 days for the first six weeks. us Hetal Huntley DO CHEMISTRY ORDERABLES Final Res ult [facility] [address] [place] [address] * LIPASE LEVEL (06/16/2023 11:42 AM EDT) Pathologist [facility] Lipase Lvl 16 13 - 60 U/L 06/16/2023 12:29 PM EDT [facility] Blood VENOUS BLOOD / Unknown Venipuncture / Unknown 06/16/2023 11:42 AM EDT 06/16/2023 11:43 AM EDT us Hetal Huntley DO CHEMISTRY ORDERABLES Final Res ult Performing Organization Address [facility] Co de Phone Number [facility] [address] [place] [address] * (ABNORMAL) COMPREHENSIVE METABOLIC PANEL (06/16/2023 11:42 AM EDT) [facility] Sodium 134(L) 136 - 145 mmol/L 06/16/2023 12:31 PM EDT [facility] Potassium 3.5 3.5 - 5.0 mmol/L 06/16/2023 12:31 PM EDT [facility] Chloride 98 98 - 107 mmol/L 06/16/2023 12:31 PM EDT [facility] Total CO2 19(L) 22 - 29 mmol/L 06/16/2023 12:31 PM EDT [facility] Anion Gap 17(H) 7 - 16 mmol/L 06/16/2023 12:31 PM EDT [facility] Calcium 9.0 8.6 - 10.4 mg/dL 06/16/2023 12:31 PM EDT [facility] Glucose Lvl 92 70 - 99 mg/dL 06/16/2023 12:31 PM EDT [facility] BUN 9 6 - 20 mg/dL 06/16/2023 12:31 PM T [facility] Creatinine 0.43(L) 0.51 - 1.30 mg/dL 06/16/2023 12:31 PM EDT [facility] Albumin 3.8 3.5 - 5.2 gm/dL 06/16/2023 12:31 PM EDT [facility] Total Protein 6.5 6.4 - 8.3 gm/dL 06/16/2023 12:31 PM EDT [facility] Bili Total 0.2 0.2 - 1.3 mg/dL 06/16/2023 12:31 PM T [facility] ALT 17 <=41 U/L 06/16/2023 12:31 PM T [facility] AST 12 <=40 U/L 06/16/2023 12:31 PM T [facility] Alk Phos 82 36 - 123 U/L 06/16/2023 12:31 PM T [facility] eGFR (CKD-EPIcr 2020) 129 >=60 mL/min/1.7 3 m2 06/16/2023 12:31 PM T [facility] Comment:Estimated GFR was ca lculated using the CKD-EPIcr (2020) equation refit without race. The equation is recommended by the [employer] - [place] [employer] Neph[employer] Task Force. Blood VENOUS BLOOD / Unknown Venipuncture / Unknown 06/16/2023 11:42 AM EDT 06/16/2023 11:43 AM EDT us Hetal Huntley DO CHEMISTRY ORDERABLES Final Res ult [facility] [address] [place], [place] [id number] documented in this encounter Visit Diagnoses Diagnosis Abdominal pain complicating - Primary Other specified complication of , unspecified as to episode of care documented in this encounter Administered Medications Inactive Administered Medications - up to 1 most recent administrations Medication Order MAR Action Action Date Dose Rate Site morphine injection 4 mg 4 mg, Intravenous, ONCE, 1 dose, On Thu06/16/23 at 1115 Given 06/16/2023 11:52 AM EDT 4 mg ondansetron (ZOFRAN) injection 4 mg 4 mg, Intravenous, ONCE, 1 dose, On Thu06/16/23 at 1115 Given 06/16/2023 11:51 AM EDT 4 mg sodium chloride 0.9 % 1,000 mL IV bolus Intravenous, ONCE, 1 dose, On Thu06/16/23 at 1115, at 983.6 mL/hr IV Started 06/16/2023 11:57 AM EDT 983.6 mL/hr sodium chloride 0.9% IV line flush 50 mL 50 mL, Intravenous, at 999 mL/hr, PRN, Starting on Thu06/16/23 at 1109, Until Thu06/16/23 at 1719, Line Care, Flush with 50 mL after IVPB to insure complete administration of the dose. May use the saline infusion to back flush IVPB tubing as needed., Use this order to document priming and flushing IV line after medication administration. sodium chloride 0.9% syringe 5-10 mL 5-10 mL, Intravenous, PRN, Starting on Thu06/16/23 at 1109, Until Thu06/16/23 at 1719, Line Care, Flush with 5 mL saline pre/post IVP, and 5 mL prior to IVPB or blood product administration. Protocol for PERIPHERAL IV saline lock maintenance, flush with 3-5 mL saline syringe every 8 hours., Flush peripheral lines every 12 hours, central lines every 8 hours, and after IV medication documented in this encounter Historical Medications * This list may reflect changes made after this encounter. pregabalin (LYRICA) 50 mg Oral Capsule Take by mouth 3 times daily. LORazepam (ATIVAN) 1 mg Oral Tablet Take by mouth every 8 hours. added in this encounter Active and Recently Administered Medications Times are shown in EDT. Scheduled Medication Order 06/14/2023 06/15/2023 06/16/2023 morphine injection 4 mg (COMPLETED) 4 mg, Intravenous, ONCE, 1 dose, On Thu06/16/23 at 1115 1152 (Given - Provid er: Val Hawthorne RN) ondansetron (ZOFRAN) injection 4 mg (COMPLETED) 4 mg, Intravenous, ONCE, 1 dose, On Thu06/16/23 at 1115 1151 (Given - Provid er: Val Hawthorne RN) sodium chloride 0.9 % 1,000 mL IV bolus (COMPLETED) Intravenous, ONCE, 1 dose, On Thu06/16/23 at 1115, at 983.6 mL/hr 1157 (IV Started - P rovider: Val Hawthorne RN)1300 (Stopped - Provider: Aarti Ashley RN) PRN Medication Order 06/14/2023 06/15/2023 06/16/2023 sodium chloride 0.9% IV line flush 50 mL 50 mL, Intravenous, at 999 mL/hr, PRN, Starting on Thu06/16/23 at 1109, Until Thu06/16/23 at 1719, Line Care, Flush with 50 mL after IVPB to insure complete administration of the dose. May use the saline infusion to back flush IVPB tubing as needed., Use this order to document priming and flushing IV line after medication administration. sodium chloride 0.9% syringe 5-10 mL 5-10 mL, Intravenous, PRN, Starting on Thu06/16/23 at 1109, Until Thu06/16/23 at 1719, Line Care, Flush with 5 mL saline pre/post IVP, and 5 mL prior to IVPB or blood product administration. Protocol for PERIPHERAL IV saline lock maintenance, flush with 3-5 mL saline syringe every 8 hours., Flush peripheral lines every 12 hours, central lines every 8 hours, and after IV medication documented in this encounter Orders Medications Ordered That Jarrod ht Not Have Been Administered Count Last Ordered Date First Ordered Date sodium chloride 0.9% IV line flush 50 mL 1 06/16/2023 sodium chloride 0.9% syringe 5-10 mL 1 05/25 documented in this encounter
--- OUTSIDE RECORDS SUMMARY | 2024-02-03 15:06 | XMS_ITS | Encounter Summary ---
Author Organization [facility] Address [address] [place] [address] Care Team Providers Care Aircraft Dispatcher Name Role Phone Provider, No Known Primary Care Provider Unavail able Reason for Visit * Reason Comments Jaw Pain Headache Encounter Details Date Type Department Care Team (Late st Contact Info) Description 05/12/2016 12:10 PM EDT - 05/12/2016 3:04 PM EDT Emergency [facility] [address] [place] [address] Mateo Bey MD [address] [facility] [place] [address] Dentalgia (Primary Dx); Pain in lower jaw; Dental caries Discharge Disposition: Home or Self Care Social [...] Sign Reading Time Taken Comments Blood Pressure 124/84 05/12/2016 1:54 PM EDT Pulse 67 05/12/2016 1:54 PM EDT Temperature 36.8 ??C (98.2 ??F) 05/12/2016 1:54 PM ED T Respiratory Rate 16 05/12/2016 1:54 PM EDT Oxygen Saturation 95% 05/12/2016 1:54 PM EDT Inhaled Oxygen Concentration - - Weight 83.9 kg (185 lb) 05/12/2016 11:08 AM EDT Height 167.6 cm (5' 6 ) 05/12/2016 11:08 AM EDT Body Mass Index 29.86 05/12/2016 11:08 AM EDT documented in this encounter Medications at Time [...] Needed for anxiety. 15 tablet 04/19/2016 10/02/2018 ibuprofen (ADVIL,MOTRIN) 600 MG tablet Take 1 tablet by mouth Every 8 (Eight) Hours As Needed for Mild Pain (1-3). 15 tablet 05/12/2016 10/02/2018 penicillin v potassium (VEETID) 500 MG tablet Take 1 tablet by mouth 4 (Four) Times a Day. 40 tablet 05/12/2016 10/02/2018 promethazine (PHENERGAN) 25 MG tablet Take 1 tablet by mouth Every 6 (Six) Hours As Needed for nausea or vomiting. 6 tablet 04/19/2016 10/02/2018 documented as of this encounter ED Notes * Hetal Lopez APRN - 05/12/2016 2:08 PM EDT Subjective Patient is a 30 y.o. female presenting with tooth pain. 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 by: Patient Dental Pain Location: Lower Lower teeth location: 18/LL 2nd molar and 19/LL 1st molar Quality: Aching Severity: Moderate Onset quality: Gradual Duration: 4 days Timing: Constant Progression: Worsening Chronicity: New Context: dental caries and poor dentition Context comment: Reports that she has had left lower jaw pain that has progressively worsened over the past 2 days to the point where it is difficult for her to open and close her mouth Relieved by: Nothing Worsened by: Jaw movement Ineffective treatments: None tried Associated symptoms: facial pain and facial swelling Associated symptoms: no fever, no headaches, no neck pain and no neck swelling Review of Systems Constitutional: Negative for chills and fever. HENT: Positive for facial swelling. Negative for sore throat. Respiratory: Negative for chest tightness and shortness of breath. Cardiovascular: Negative for chest pain. Gastrointestinal: Negative for nausea and vomiting. Musculoskeletal: Negative for neck pain. Skin: Negative for rash. Neurological: Negative for headaches. All other systems reviewed and are negative. [...] time. She appears well- developed and well-nourished. HENT: Head: Normocephalic. Right Ear: Tympanic membrane, external ear and ear canal normal. No swelling or tenderness. Left Ear: Tympanic membrane, external ear and ear canal normal. No swelling or tenderness. Mouth/Throat: Uvula is midline, oropharynx is clear and moist and mucous membranes are normal. Dental caries (Several dental caries noted. Cracked filling with mild decay left lower molars) present. Patient able to open mouth for oral and dental exam Eyes: Conjunctivae are normal. Pupils are equal, round, and reactive to light. Neck: Normal range of motion and full passive range of motion without pain. Neck supple. Cardiovascular: Normal rate, regular rhythm and normal heart sounds. Pulmonary/Chest: Effort normal and breath sounds normal. Musculoskeletal: Normal steady gait Lymphadenopathy: She has no cervical adenopathy. Neurological: She is alert and oriented to person, place, and time. Skin: Skin is warm and dry. No erythema. No facial erythema or facial swelling noted Psychiatric: She has a normal mood and affect. Her behavior is normal. Procedures ED Course ED Course Recent Results (from the past 24 hour(s)) POCT , urine Collection Time: 05/12/16 1:14 PM Result Value Ref Range HCG, Urine, QL Negative Negative Lot Number [id number] Internal Positive Control Positive Internal Negative Control Negative Basic Metabolic Panel Collection Time: 05/12/16 1:16 PM Result Value Ref Range Glucose 78 70 - 100 mg/dL BUN 15 9 - 23 mg/dL Creatinine 0.60 0.60 - 1.30 mg/dL Sodium 141 132 - 146 mmol/L Potassium 3.6 3.5 - 5.5 mmol/L Chloride 108 99 - 109 mmol/L CO2 27.0 20.0 - 31.0 mmol/L Calcium 9.1 8.7 - 10.4 mg/dL eGFR Non Amer 118 >60 mL/min/1.73 BUN/Creatinine Ratio 25.0 7.0 - 25.0 Anion Gap 6.0 3.0 - 11.0 mmol/L CBC Auto Differential Collection Time: 05/12/16 1:16 PM Result Value Ref Range WBC 8.78 3.50 - 10.80 10*3/mm3 RBC 4.04 3.89 - 5.14 10*6/mm3 Hemoglobin 12.7 11.5 - 15.5 g/dL Hematocrit 39.1 34.5 - 44.0 % MCV 96.8 80.0 - 99.0 fL MCH 31.4 (H) 27.0 - 31.0 pg MCHC 32.5 32.0 - 36.0 g/dL RDW 13.1 11.3 - 14.5 % RDW-SD 46.0 37.0 - 54.0 fl MPV 10.0 6.0 - 12.0 fL Platelets 193 150 - 450 10*3/mm3 Neutrophil % 41.6 41.0 - 71.0 % Lymphocyte % 51.1 (H) 24.0 - 44.0 % Monocyte % 4.1 0.0 - 12.0 % Eosinophil % 2.4 0.0 - 3.0 % Basophil % 0.5 0.0 - 1.0 % Immature Grans % 0.3 0.0 - 0.6 % Neutrophils, Absolute 3.65 1.50 - 8.30 10*3/mm3 Lymphocytes, Absolute 4.49 0.60 - 4.80 10*3/mm3 Monocytes, Absolute 0.36 0.00 - 1.00 10*3/mm3 Eosinophils, Absolute 0.21 0.10 - 0.30 10*3/mm3 Basophils, Absolute 0.04 0.00 - 0.20 10*3/mm3 Immature Grans, Absolute 0.03 0.00 - 0.03 10*3/mm3 Note: In addition to lab results from this visit, the labs listed above may include labs taken at another facility or during a different encounter within the last 24 hours. Please correlate lab timeswith ED admission and discharge times for further clarification of the services performed during this visit. CT Maxillofacial With & Without Contrast Preliminary Result Facial bones are intact and unremarkable. No significant soft tissue swelling. No abnormal contrast enhancement is identified. E: 05/12/2016 Vitals: 05/12/16 1108 05/12/16 1222 05/12/16 1354 BP: 135/84 124/80 124/84 BP Location: Left arm Right arm Right arm Patient Position: Sitting Sitting Lying Pulse: 89 84 67 Resp: 16 16 16 Temp: 98 ??F (36.7 ??C) 98.2 ??F (36.8 ??C) TempSrc: Oral Oral SpO2: 100% 100% 95% Weight: 185 lb (83.9 kg) Height: 66 (167.6 cm) Medications sodium chloride 0.9 % flush 10 mL (not administered) sodium chloride 0.9 % flush 10 mL (not administered) HYDROmorphone (DILAUDID) injection 0.5 mg (0.5 mg Intravenous Given 05/12/16 1313) ondansetron (ZOFRAN) injection 4 mg (4 mg Intravenous Given 05/12/16 1313) iopamidol (ISOVUE-300) 61 % injection 100 mL (75 mL Intravenous Given 05/12/16 1332) HYDROmorphone (DILAUDID) injection 0.5 mg (0.5 mg Intravenous Given 05/12/16 1354) ECG/EMG Results (last 24 hours) No results found for the last 24 hours. MDM Final diagnoses: Dentalgia Pain in lower jaw Dental caries Hetal Lopez, PSYCHIATRIC NURSE 05/12/16 1421 Cosigned by Mateo Bey MD at 05/12/2016 10:03 PM EDT Associated attestation - Mateo Bey MD - 05/12/2016 10:03 PM EDT For this patient encounter, I reviewed the ASPHALT PAVING MACHINE OPERATOR or PA documentation, treatment plan, and medical decision making. Mateo Bey MD 05/12/2016 10:03 PM documented in this encounter Plan of Treatment Not on file documented as of this encounter Procedures Procedure Name Priority Date/Time Associated Diagnosis Comments CT MAXILLOFACIAL W WO CON STAT 05/12/2016 1:37 PM EDT GOLD TOP - SST STAT 05/12/2016 1:16 PM EDT DK GREEN TOP STAT 05/12/2016 1:16 PM EDT CBC WITH AUTO DIFFERENTIAL STAT 05/12/2016 1:16 PM EDT LAVENDER TOP STAT 05/12/2016 1:16 PM EDT LIGHT BLUE TOP STAT 05/12/2016 1:16 PM EDT RAINBOW DRAW STAT 05/12/2016 1:16 PM EDT CBC AND DIFFERENTIAL STAT 05/12/2016 1:16 PM EDT BASIC METABOLIC PANEL STAT 05/12/2016 1:16 PM EDT POCT PEFORM URINE STAT 05/12/2016 1:14 PM EDT documented in this encounter Results * CT Maxillofacial With & Without Contrast (05/12/2016 1:37 PM EDT) Anatomical Region Laterality Modality Head N/A Computed Tomogra phy 05/12/2016 1:54 PM EDT Impressions 05/12/2016 2:40 PM EDT Facial bones are intact and unremarkable. No significant soft tissue swelling. ??No abnormal contrast enhancement is identified. D: ??05/12/2016 E: ??05/12/2016 This report was finalized on 05/12/2016 2:[address] Nelli Reed MD. Narrative 05/12/2016 2:40 PM EDT EXAMINATION: CT MAXILLOFACIAL W WO CON- 05/12/2016 INDICATION: rule out abscess, jaw pain TECHNIQUE: Multiple axial CT imaging was obtained of the facial bones with and without the administration of intravenous contrast. Coronal 2-D reformatted images were submitted to further facilitate diagnostic accuracy and treatment planning. The radiation dose reduction device was turned on for each scan per the ALARA (As Low as Reasonably Achievable) protocol. COMPARISON: NONE FINDINGS: There is no evidence of edema identified in the subcutaneous tissues. There is no enhancement identified. There is no evidence of mucosal thickening to suggest sinusitis. Globes and orbits are intact. No bony abnormalities identified. No lucency seen surrounding the teeth. No air-fluid level identified. Condyles well-seated within the temporomandibular joint. Mastoid air cells are patent. Minimal degenerative changes seen within the spine. Coronal imaging reveals no significant nasal septal deviation identified. There is mild narrowing of the ethmoid infundibulum bilaterally with no evidence of ostiomeatal complex abnormality. Procedure Note Nelli Reed MD - 05/12/2016 EXAMINATION: CT MAXILLOFACIAL W WO CON- 05/12/2016 INDICATION: rule out abscess, jaw pain TECHNIQUE: Multiple axial CT imaging was obtained of the facial bones with and without the administration of intravenous contrast. Coronal 2-D reformatted images were submitted to further facilitate diagnostic accuracy and treatment planning. The radiation dose reduction device was turned on for each scan per the ALARA (As Low as Reasonably Achievable) protocol. COMPARISON: NONE FINDINGS: There is no evidence of edema identified in the subcutaneous tissues. There is no enhancement identified. There is no evidence of mucosal thickening to suggest sinusitis. Globes and orbits are intact. No bony abnormalities identified. No lucency seen surrounding the teeth. No air-fluid level identified. Condyles well-seated within the temporomandibular joint. Mastoid air cells are patent. Minimal degenerative changes seen within the spine. Coronal imaging reveals no significant nasal septal deviation identified. There is mild narrowing of the ethmoid infundibulum bilaterally with no evidence of ostiomeatal complex abnormality. IMPRESSION: Facial bones are intact and unremarkable. No significant soft tissue swelling. No abnormal contrast enhancement is identified. E: 05/12/2016 This report was finalized on 05/12/2016 2:[address] Nelli Reed MD. Hetal Lopez PSYCHIATRIC NURSE IMG CT ORDERABLES Final Result * Gold Top - SST (05/12/2016 1:16 PM EDT) Extra Tube Hold for add-ons. 05/12/2016 6:01 PM EDT [facility] Comment:Auto resulted. Blood Line / Unknown 05/12/2016 1: 16 PM EDT 05/12/2016 1:20 PM EDT Mateo Bey MD LAB BLOOD ORDER ONLY Final Res ult Performing Organization Address City/[facility]/ZIP Co de Phone Number [facility]
[address] [place] [address], * Lavender Top (05/12/2016 1:16 PM EDT) Extra Tube hold for add-on 05/12/2016 6:01 PM EDT [facility] Comment:Auto resulted Blood Line / Unknown 05/12/2016 1: 16 PM EDT 05/12/2016 1:20 PM EDT Mateo Bey MD LAB BLOOD ORDER ONLY Final Res ult Performing Organization Address City/[facility]/ZIP Co de Phone Number [facility]
[address] [place] [address], * Green Top (Gel) (05/12/2016 1:16 PM EDT) Extra Tube Hold for add-ons. 05/12/2016 6:01 PM EDT [facility] Comment:Auto resulted. Blood Line / Unknown 05/12/2016 1: 16 PM EDT 05/12/2016 1:20 PM EDT Mateo Bey MD LAB BLOOD ORDER ONLY Final Res ult Performing Organization Address City/[facility]/ZIP Co de Phone Number [facility]
[address] [place] [address], * Light Blue Top (05/12/2016 1:16 PM EDT) Extra Tube hold for add-on 05/12/2016 6:01 PM EDT [facility] Comment:Auto resulted Blood Line / Unknown 05/12/2016 1: 16 PM EDT 05/12/2016 1:20 PM EDT Mateo Bey MD LAB BLOOD ORDER ONLY Final Res ult Performing Organization Address City/[facility]/ZIP Co de Phone Number [facility]
[address] [place] [address], * (ABNORMAL) CBC Auto Differential (05/12/2016 1:16 PM EDT) WBC 8.78 3.50 - 10.80 10*3/mm3 05/12/2016 1:34 PM EDT [facility] RBC 4.04 3.89 - 5.14 10*6/mm3 05/12/2016 1:34 PM EDT [facility] Hemoglobin 12.7 11.5 - 15.5 g/dL 05/12/2016 1:34 PM EDT [facility] Hematocrit 39.1 34.5 - 44.0 % 05/12/2016 1:34 PM EDT [facility] MCV 96.8 80.0 - 99.0 fL 05/12/2016 1:34 PM EDT [facility] MCH 31.4(H) 27.0 - 31.0 pg 05/12/2016 1:34 PM EDT [facility] MCHC 32.5 32.0 - 36.0 g/dL 05/12/2016 1:34 PM EDT [facility] RDW 13.1 11.3 - 14.5 % 05/12/2016 1:34 PM EDT [facility] RDW-SD 46.0 37.0 - 54.0 fl 05/12/2016 1:34 PM EDT [facility] MPV 10.0 6.0 - 12.0 fL 05/12/2016 1:34 PM EDT [facility] Platelets 193 150 - 450 10*3/mm3 05/12/2016 1:34 PM EDT [facility] Neutrophil % 41.6 41.0 - 71.0 % 05/12/2016 1:34 PM EDT [facility] Lymphocyte % 51.1(H) 24.0 - 44.0 % 05/12/2016 [facility] Monocyte % 4.1 0.0 - 12.0 % 05/12/2016 1:34 [facility] Eosinophil % 2.4 0.0 - 3.0 % 05/12/2016 1:34 [facility] Basophil % 0.5 0.0 - 1.0 % 05/12/2016 1:34 PM EDT [facility] Immature Grans % 0.3 0.0 - 0.6 % 05/12/2016 1:34 PM EDT [facility] Neutrophils, Absolute 3.65 1.50 - 8.30 10*3/mm3 05/12/2016 1:34 PM EDT [facility] Lymphocytes, Absolute 4.49 0.60 - 4.80 10*3/mm3 05/12/2016 1:34 PM EDT [facility] Monocytes, Absolute 0.36 0.00 - 1.00 10*3/mm3 05/12/2016 1:34 PM EDT [facility] Eosinophils, Absolute 0.21 0.10 - 0.30 10*3/mm3 05/12/2016 1:34 PM EDT [facility] Basophils, Absolute 0.04 0.00 - 0.20 10*3/mm3 05/12/2016 1:34 PM EDT [facility] Immature Grans, Absolute 0.03 0.00 - 0.03 10*3/mm3 05/12/2016 1:34 PM EDT [facility] Blood Line / Unknown 05/12/2016 1: 16 PM EDT 05/12/2016 1:20 PM EDT us Hetal Lopez PSYCHIATRIC NURSE LAB BLOOD ORDERABLES Final Res ult [facility]
[address] [place] [address], * Basic Metabolic Panel (05/12/2016 1:16 PM EDT) Glucose 78 70 - 100 mg/dL 05/12/2016 2:07 PM EDT [facility] BUN 15 9 - 23 mg/dL 05/12/2016 2:07 PM EDT [facility] Creatinine 0.60 0.60 - 1.30 mg/dL 05/12/2016 2:07 PM EDT [facility] Sodium 141 132 - 146 mmol/L 05/12/2016 2:07 PM EDT [facility] Potassium 3.6 3.5 - 5.5 mmol/L 05/12/2016 2:07 PM EDT [facility] Chloride 108 99 - 109 mmol/L 05/12/2016 2:07 PM EDT [facility] CO2 27.0 20.0 - 31.0 mmol/L 05/12/2016 2:07 PM EDT [facility] Calcium 9.1 8.7 - 10.4 mg/dL 05/12/2016 2:07 PM EDT [facility] eGFR Non Amer 118 >60 mL/min/1.7 3 05/12/2016 2:07 PM EDT [facility] BUN/Creatinine Ratio 25.0 7.0 - 25.0 05/12/2016 2:07 PM EDT [facility] Anion Gap 6.0 3.0 - 11.0 mmol/L 05/12/2016 2:07 PM EDT [facility] Blood Line / Unknown 05/12/2016 1: 16 PM EDT 05/12/2016 1:20 PM EDT Narrative [facility] - 05/12/2016 2:07 PM EDT National [employer] Guidelines Stage ? Description ? GFR ? 1 ? Normal or High ?90+ 2 ? Mild decrease ?60-89 3 ? Moderate decrease ? 30-59 4 ? Severe decrease ? 15-29 5 ? Kidney failure ? <15 Hetal Lopez APRN LAB BLOOD ORDERABLES Final Res ult [facility]
[address] [place] [address], * POCT , urine (05/12/2016 1:14 PM EDT) HCG, Urine, QL Negative Negative [facility] Lot Number [id number] [facility] Internal Positive Control Positive [facility] Internal Negative Control Negative [facility] Urine 05/12/2016 1:14 PM EDT Hetal Lopez APRN POINT OF CARE TEST ORDERABLES Final Result Performing Organization Address [facility] Co de Phone Number [facility]
[address] [place] [address], documented in this encounter Visit Diagnoses Diagnosis Dentalgia- Primary Unspecified disorder of the teeth and supporting structures Pain in lower jaw Dental caries Unspecified dental caries documented in this encounter Administered Medications Inactive Administered Medications - up to 3 most recent administrations Medication Order MAR Action Action Date Dose Rate Site HYDROmorphone (DILAUDID) 1 MG/ML injection - ADS Override Pull Starting on Thu05/12/16 at 1351, For 1 dose, Created by cabinet override HYDROmorphone (DILAUDID) injection 0.5 mg 0.5 mg, Intravenous, Once, On Thu05/12/16 at 1247, For 1 dose Given 05/12/2016 1:13 PM EDT 0.5 mg HYDROmorphone (DILAUDID) injection 0.5 mg 0.5 mg, Intravenous, Once, On Thu05/12/16 at 1353, For 1 dose Given 05/12/2016 1:54 PM EDT 0.5 mg HYDROmorphone (DILAUDID) injection 1 mg 1 mg, Intravenous, Once, On Thu05/12/16 at 1427, For 1 dose Given 05/12/2016 2:56 PM EDT 1 mg iopamidol (ISOVUE-300) 61 % injection 100 mL 100 mL, Intravenous, Once in Imaging, On Thu05/12/16 at 1339, For 1 dose Given 05/12/2016 1:32 PM EDT 75 mL ondansetron (ZOFRAN) injection 4 mg 4 mg, Intravenous, Once, On Thu05/12/16 at 1305, For 1 dose Given 05/12/2016 1:13 PM EDT 4 mg sodium chloride 0.9 % flush 10 mL 10 mL, Intravenous, As Needed, Line Care, Starting on Thu05/12/16 at 1244 sodium chloride 0.9 % flush 10 mL 10 mL, Intravenous, As Needed, Line Care, Starting on Thu05/12/16 at 1315 documented in this encounter Active and Recently Administered Medications Times are shown in EDT. Scheduled Medication Order 05/10/2016 05/11/2016 05/12/2016 HYDROmorphone (DILAUDID) injection 0.5 mg (COMPLETED) 0.5 mg, Intravenous, Once, On Thu05/12/16 at 1247, For 1 dose 1313 (Given - Provid er: Lawanda Ott RN) HYDROmorphone (DILAUDID) injection 0.5 mg (COMPLETED) 0.5 mg, Intravenous, Once, On Thu05/12/16 at 1353, For 1 dose 1354 (Given - Provid er: Lawanda Ott RN) HYDROmorphone (DILAUDID) injection 1 mg (COMPLETED) 1 mg, Intravenous, Once, On Thu05/12/16 at 1427, For 1 dose 1456 (Given - Provid er: Rosalio Camarillo, Die Designer Apprentice) iopamidol (ISOVUE-300) 61 % injection 100 mL (COMPLETED) 100 mL, Intravenous, Once in Imaging, On Thu05/12/16 at 1339, For 1 dose 1332 (Given - Provid er: Nya Zamarripa, RT) ondansetron (ZOFRAN) injection 4 mg (COMPLETED) 4 mg, Intravenous, Once, On Thu05/12/16 at 1305, For 1 dose 1313 (Given - Provid er: Lawanda Ott RN) PRN Medication Order 05/10/2016 05/11/2016 05/12/2016 sodium chloride 0.9 % flush 10 mL(Linked Group 1) 10 mL, Intravenous, As Needed, Line Care, Starting on Thu05/12/16 at 1244 sodium chloride 0.9 % flush 10 mL 10 mL, Intravenous, As Needed, Line Care, Starting on Thu05/12/16 at 1315 Linked Groups Order Group 1: Insert peripheral IV (CANCELED) Once, On Thu05/12/16 at 1245, For 1 occurrence And sodium chloride 0.9 % flush 10 mLJump to med 10 mL, Intravenous, As Needed, Line Care, Starting on Thu05/12/16 at 1244 documented in this encounter Care Teams Aircraft Dispatcher Relationship Specialty Start Date End Date Provider, [place] [address] PCP - General 02/18/16 09/30/18 documented as of this encounter
--- OUTSIDE RECORDS SUMMARY | 2024-02-03 15:06 | XMS_ITS | Encounter Summary ---
Author Organization [facility] [place] [address] Care Team Providers Care Hand Compositor Name Role Phone Unavailable Primary Care Provider Unavailabl e Encounter Details Date Type Department Care Team (Latest Contact Info) Description 06/16/2023 Travel Social History Tobacco Use Types Packs/Day Years Used Date Smoking Tobacco: Every Day Cigarettes Alcohol Use Standard Drinks/Week Comments Not Currently [...]
--- OUTSIDE RECORDS SUMMARY | 2024-02-03 15:06 | XMS_ITS | Clinical Summary ---
Author Organization [facility] Address [address] [place] [address] Phone Care Team Providers Care Briquette Molder Name Role Phone Unavailable Primary Care Provider Unavailabl e Allergies Active Allergy Reactions Criticality Noted Date Comments Prochlorperazine Other (See Comments) Lock jaw Droperidol Other (See Comments) 06/16/2023 I get lockjaw Medications LORazepam (ATIVAN) 1 mg Oral Tablet Take by mouth every 8 hours. Active pregabalin (LYRICA) 50 mg Oral Capsule Take by mouth 3 times daily. Active Surgical History Surgery Date Site/Laterality Comments GALLBLADDER SURGERY Social History Tobacco Use Types Packs/Day Years [...] on file Sexual Orientation Not on file Obstetrics History Last Filed Vital Signs Vital Sign Reading [...] 06/16/2023 10:44 AM EDT Plan of Treatment Health Maintenance Due Date Last Done Comments Annual Wellness Exam 1988 Pneumococcal Vaccine 0-64 (1 of 2 - PCV) 1992 Hepatitis B Vaccine (1 of 3 - 19+ 3-dose series) 2005 Cervical Cancer Screening 12/19/2007 Pap Smear 12/19/2007 HPV/Pap Cotest 2016 COVID-19 Vaccine (4 - 2023-2 5 season) 2023 02/10/2021, 07/05/2020, 06/11/2020 Influenza Vaccine (#1) 2023 , 01/20/2022, 12/27/2020, Additional history exists DTaP/TDaP/Td (2 - Td or Tdap) 06/26/2031 06/25/2021 Insurance Hayden Yang LOGAN [place] [id number] [place]
--- OUTSIDE RECORDS SUMMARY | 2024-02-03 15:06 | XMS_ITS | Encounter Summary ---
[facility] Address [address] [place] [address] Care Team Providers Care Air Route Traffic Controller Name Role Phone Provider, No Known Primary Care Provider Unavail able Reason for Visit * Reason Comments Mouth Injury Encounter Details Date Type Department Care Team (Late st Contact Info) Description 02/24/2016 9:40 PM EST - 02/24/2016 10:21 PM EST Emergency [facility] [address] [place] [address] Dez Rice DO [address] [facility] [place] [address] Glossitis (Primary Dx); Transient lingual papillitis Discharge Disposition: Home or Self Care Social [...] Sign Reading Time Taken Comments Blood Pressure 132/79 02/24/2016 10:06 PM EST Pulse 95 02/24/2016 10:06 PM EST Temperature 36.5 ??C (97.7 ??F) 02/24/2016 9:08 PM ES T Respiratory Rate 18 02/24/2016 9:08 PM EST Oxygen Saturation 99% 02/24/2016 10:06 PM EST Inhaled Oxygen Concentration - - Weight 81.6 kg (180 lb) 02/24/2016 9:08 PM EST Height 167.6 cm (5' 6 ) 02/24/2016 9:08 PM EST Body Mass Index 29.05 02/24/2016 9:08 PM EST documented in this encounter Discharge Instructions * Discharge Instructions* Dez Rice, - 02/24/2016 10:07 PM EST Follow up with one of the congregational physicians below to setup primary care. (Dr. Malin, Dr. Amanda, Dr. Hernandez, and Dr. Rojo.) [facility], Primary Care, , [address], [place] [id number] [facility], Primary Care, , [address] [facility] [address] [facility], [address] [place], [address] [facility], Primary Care, , [address], [address] [place], [address] [facility], Primary Care, , [address] [facility], [address] [place], [address] [place] [address] [facility], Primary Care, , [address], [address] [place], [address] [place] [address] [facility], Primary Care, , [address] [place], [address] [facility], Primary Care, , [address] [facility], [address] [place], [address] [facility], Primary Care, , [address] [facility], [address] [place], [address] [facility], Primary Care, [phone], [address] [facility], [address] [place], [address] [facility], Primary Care, , [address], [address], [address] [place] ([facility]) [facility], Primary Care, , [address], [place], [address] [place] [address], Primary Care, , [address] [facility] [place] [address] * Attachments The following attachments cannot be sent through Care Everywhere. * GLOSSITIS (MALAWIAN) documented in this encounter Medications at Time [...] ED Notes * Dez Rice DO - 02/24/2016 9:41 PM EST Subjective HPI Comments: 30 y.o. female presents to the ED w/ c/o tongue pain starting 2 days ago. Pt states she is having a constant pain diffusely throughout her tongue that is worse with eating or swallowing. She states she has developed bumps on the back of her tongue. She denies any injury or trauma. No hx similar. Pt has had a migraine headache over the last couple days. Patient is a 30 y.o. female presenting with general illness. 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 by: Patient Illness Location: Tongue Quality: pain Severity: Mild Onset quality: Gradual Duration: 3 days Timing: Constant Progression: Unchanged Chronicity: New Context: No injury or trauma Relieved by: Nothing Worsened by: Eating Associated symptoms: headaches Associated symptoms: no chest pain, no ear pain, no fever, no nausea, no rash, no shortness of breath, no sore throat and no vomiting Review of Systems Constitutional: Negative for fever. HENT: Negative for ear pain and sore throat. Respiratory: Negative for shortness of breath. Cardiovascular: Negative for chest pain. Gastrointestinal: Negative for nausea and vomiting. Skin: Negative for rash. Neurological: Positive for headaches. All other systems reviewed and [...] No distress. HENT: Head: Normocephalic and atraumatic. Mouth/Throat: Oropharynx is clear and moist. No oropharyngeal exudate. Eyes: Conjunctivae are normal. Pupils are equal, round, and reactive to light. Neck: Neck supple. Cardiovascular: Normal rate, regular rhythm and normal heart sounds. Pulmonary/Chest: Effort normal and breath sounds normal. No respiratory distress. She exhibits no tenderness. Abdominal: Soft. Bowel sounds are normal. There is no tenderness. Musculoskeletal: Normal range of motion. She exhibits no edema. Neurological: She is alert and oriented to person, place, and time. Skin: Skin is warm and dry. Psychiatric: She has a normal mood and affect. Her behavior is normal. Nursing note and vitals reviewed. Procedures ED Course ED Course Course of Care Lab Results (last 24 [...] this visit. No orders to display Vitals: 02/24/16 2108 02/24/16 2206 BP: 134/88 132/79 BP Location: Left arm Patient Position: Sitting Pulse: 91 95 Resp: 18 Temp: 97.7 ??F (36.5 ??C) TempSrc: Oral SpO2: 97% 99% Weight: 180 lb (81.6 kg) Height: 66 (167.6 cm) Medications diphenhydrAMINE (BENADRYL) 12.5 MG/5ML elixir 25 mg (25 mg Oral Given 02/24/162217) ECG/EMG Results (last 24 hours) No results found for the last 24 hours. [facility] Final diagnoses: Glossitis Transient lingual papillitis Documentation assistance provided by gaetano Vasquez. Information recorded by the scribe was done at my direction and has been verified and validated by me. Chasity Vasquez 02/24/162144 Dez Rice DO 03/02/16 0134 documented in this encounter Plan of Treatment Not on file documented as of this encounter Visit Diagnoses Diagnosis Glossitis- Primary Transient lingual papillitis documented in this encounter Administered Medications Inactive Administered Medications - up to 3 most recent administrations Medication Order MAR Action Action Date Dose Rate Site diphenhydrAMINE (BENADRYL) 12.5 MG/5ML elixir 25 mg 25 mg, Oral, Once, On 02/24/16 at 2218, For 1 dose, {BKC} This med may be ordered in other forms and routes. Before giving verify the last time the drug was given by any route/form. Given 02/24/2016 10:18 PM EST 25 mg documented in this encounter Active and Recently Administered Medications Times are shown in EST. Scheduled Medication Order 02/22/2016 02/23/2016 02/24/2016 diphenhydrAMINE (BENADRYL) 12.5 MG/5ML elixir 25 mg (COMPLETED) 25 mg, Oral, Once, On 02/24/16 at 2218, For 1 dose, {BKC} This med may be ordered in other forms and routes. Before giving verify the last time the drug was given by any route/form. 2218 (Given - Provid er: Julieta Hickman RN) documented in this encounter Care Teams Air Route Traffic Controller Relationship Specialty Start Date End Date Provider, No Known [facility] [place] [place] [address] PCP - General 02/18/16 09/30/18 documented as of this encounter
--- OUTSIDE RECORDS SUMMARY | 2024-02-03 15:07 | XMS_ITS | Encounter Summary ---
Author Organization [facility] Address [address] [place] [address] Care Team Providers Care Recovery Agent Name Role Phone Lisa Foote Beatriz ORELLANA Primary Care Provider [phone] Encounter Details Date Type Department Care Team (Latest Contact Info) Description 01/31/2024 Travel Social History Tobacco Use Types Packs/Day Years Used Date Smoking Tobacco: Every Day Cigarettes 0.5 20 Smokeless Tobacco: Never Alcohol Use Standard Drinks/Week Comments Yes 0 (1 standard drink = 0.6 oz pure alcohol) was drinking heavily x 7yrs up to a few months ago; no ETOH in a few monthhs Humiliation, Afraid, Rape, and Kick questionnair e Answer Date Recorded Within the last year, have y ou been afraid of your partner or ex-partner? No 01/25/2024 Within the last year, have y ou been humiliated or emotionally abused in other ways by your partner or ex-partner? No Within the last year, have y ou been kicked, hit, slapped, or otherwise physically hurt by your partner or ex-partner? No 01/25/2024 Within the last year, have y ou been raped or forced to have any kind of sexual activity by your partner or ex-partner? No 01/25/2024 PHQ-2 Answer Date Recorded Patient Health Questionnaire-2 Score 2 11/21/2020 Hunger Vital Sign Answer Date Recorded Within the past 12 months, y ou worried that your food would run out before you got the money to buy more. Never true 01/25/20 24 Within the past 12 months, t he food you bought just didn't last and you didn't have money to get more. Never true 01/25/2024 PRAPARE - Transportation Answer Date Re corded In the past 12 months, has l ack of transportation kept you from medical appointments or from getting medications? No 03/2023 In the past 12 months, has l ack of transportation kept you from meetings, work, or from getting things needed for daily living? No 01/25/2024 Housing Stability Vital Sign Answer Dennis e Recorded In the last 12 months, was t here a time when you were not able to pay the mortgage or rent on time? No 10/27/2023 Number of Places Lived in the Last Year Not on f ile 10/27/2023 In the last 12 months, was t here a time when you did not have a steady place to sleep or slept in a long-term (including now)? No 10/27/2023 Housing Stability Vital Sign Answer Dennis e Recorded In the last 12 months, was t here a time when you were not able to pay the mortgage or rent on time? No 01/25/2024 In the past 12 months, how m any times have you moved where you were living? 1 01/25/2024 At any time in the past 12 m [facility], were you homeless or living in a long-term (including now)? No 01/25/2024 CAGE ASSESSMENT Answer Date Recorded Due to the following: Medical status 10/24/2023 Maximum number of drinks you had on a given occasion in the last month? 5 or more drinks 10/24/2023 How many alcoholic Beverages do you typically drink in a week? 15 or more per week 10/24/2023 Have you ever felt you shoul d CUT down on your drinking? 0 10/24/2023 Have you been ANNOYED by peo ple criticizing your drinking? 0 10/24/2023 Have you felt GUILTY about your drinking? 0 10/24/2023 Have you had a drink first t caleb in the morning ([employer]) to steady your nerves or to get rid of a hangover? 0 10/24/2023 CAGE Questionnaire Score 0 024 Utilities Answer Date Recorded In the past 12 months has th e electric, gas, oil, or water [employer] threatened to shut off services in your home? No 01/25/2024 Comments No Sex and Gender Information Value Date Recorded Sex Assigned at Female 11/30/2020 9:14 AM EDT Legal Sex Female 8:12 PM EDT Gender Identity Female 11/30/2020 9:14 AM EDT Sexual Orientation Straight 11/30/2020 9: 14 AM EDT documented as of this encounter Functional Status * Are you deaf or do you have serious difficulty hearing? Answer Date of Assessment Author No 04/14/2023 2:20 PM Laureen Carrillo RN * Are you blind or do you have serious difficulty seeing, even when wearing glasses? Answer Date of Assessment Author No 04/14/2023 2:20 PM Laureen Carrillo RN * Do you have serious difficulty walking or climbing stairs? Answer Date of Assessment Author No 04/14/2023 2:20 PM Laureen Carrillo RN * Do you have serious difficulty dressing or bathing? Answer Date of Assessment Author No 04/14/2023 2:20 PM Laureen Carrillo RN * Because of a physical, mental, or emotional condition, do you have serious difficulty doing errandsalone such as visiting the doctor? Answer Date of Assessment Author No 04/14/2023 2:20 PM Laureen Carrillo RN documented as of this encounter Mental Status * Because of a physical, mental, or emotional condition, do you have serious difficulty concentrating, remembering, or making decisions? (5 years old or older) Answer Entry Date Author No 04/14/2023 2:20 PM Laureen Carrillo RN documented in this encounter Plan of Treatment Not on file documented as of this encounter Visit Diagnoses Not on filedocumented in this encounter Additional Health Concerns Infection Onset Date Last Indicated Resolved Time COVID-19 Rule-Out 01/31/2024 01/31/2024 01/31/2024 6:02 PM EST Assessment Noted Time A fall risk assessment has been complete d for the patient 11/21/2020 2:30 PM EDT A Body Mass Index follow-up plan has been documented for the patient 01/25/2024 2:48 PM EST documented as of this encounter Care Teams Recovery Agent Relationship Specialty Start Date End Date Lisa Foote APRN [address] [place] [phone] PCP - General 10/23/23 documented as of this encounter
--- OUTSIDE RECORDS SUMMARY | 2024-02-03 15:07 | XMS_ITS | Encounter Summary ---
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 No 10/27/2023 Housing Stability Vital Sign Answer Dennis e Recorded In the last 12 months, was t here a time when you were not able to pay the mortgage or rent on time? No 01/25/2024 In the past 12 months, how m any times have you moved where you were living? 1 01/25/2024 At any time in the past 12 m [facility], were you homeless or living in a long term (including now)? 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 0 10/24/2023 CAGE Questionnaire Score 0 024 Utilities Answer Date Recorded In the past 12 months has th e electric, gas, oil, or water company threatened to shut off services in your home? No 01/25/2024 Comments No Sex and Gender Information Value Date Recorded Sex Assigned at Female 11/30/2020 9:14 AM EDT Legal Sex Female 8:12 PM EDT Gender Identity Female 11/30/2020 9:14 AM EDT Sexual Orientation Straight 11/30/2020 9: 14 AM EDT documented as of this encounter Last Filed Vital Signs Vital Sign Reading Time Taken Comments Blood Pressure 151/100 01/31/2024 7:08 PM EST Pulse 80 01/31/2024 7:08 PM EST Temperature 36.8 ??C (98.2 ??F) 01/31/2024 7:08 PM ES T Respiratory Rate 18 01/31/2024 4:43 PM EST Oxygen Saturation 97% 01/31/2024 7:08 PM EST Inhaled Oxygen Concentration - - Weight - - Height - - Body Mass Index - - documented in this encounter Functional Status * Are you [...] Laureen Carrillo RN documented in this encounter Discharge Instructions * Discharge Instructions* Mireya Vo PA - 01/31/2024 5:53 PM EST Stay well hydrated, continue home meds, ensure to keep intake pain clinic appt tomorrow, continue to abstain from alcohol. Return to ER if develop fever, intractable pain, intractable vomiting, worsening symptoms or any concern documented in this encounter Medications at Time of Discharge acetaminophen (Tylenol) 325 MG tablet Take 2 tablets (650 mg) by mouth 3 (three) times a day. And As Needed. amitriptyline (Elavil) 25 MG tablet Take 1 tablet (25 mg) by mouth every night. 60 tablet 01/25/2024 dicyclomine (Bentyl) 10 MG capsule Take 1 capsule (10 mg) by mouth 4 (four) times a day. 120 capsule 2 01/25/2024 lidocaine (Lidoderm) 5 % patch Apply 1 patch topically 1 (one) time each day at the same time over 12 hours. Remove & discard patch within 12 hours or as directed by MD. 9 patch 01/26/2024 naloxone (Narcan) 4 mg/0.1 mL nasal spray 1. Give 1 spray in nostril for no/slow breathing or cannot wake after opioid use 2. Call 911 3. Repeat in other nostril if symptoms continue 1 each 01/25/2024 oxyCODONE (Roxicodone) 10 MG immediate release tablet Take 1 tablet (10 mg) by mouth every 6 (six) hours for 10 days. 40 tablet 01/25/2024 pantoprazole (Protonix) 40 MG EC tablet Take 1 tablet (40 mg) by mouth 1 (one) time each day. Do not crush, chew, or split. pregabalin (Lyrica) 300 MG capsule Take 1 capsule (300 mg) by mouth 2 (two) times a day. promethazine (Phenergan) 12.5 MG suppository Insert 1 suppository (12.5 mg) into the rectum every 6 (six) hours if needed for nausea or vomiting for up to 7 days. 12 each 01/31/2024 Senexon-S 8.6-50 MG tablet Take 1 tablet by mouth if needed for constipation. 30 tablet 2 01/25/2024 sucralfate (Carafate) 1 GM/10ML suspension Take 10 mL (1 g) by mouth 4 (four) times a day (before meals and nightly). 473 mL 01/25/2024 documented as of this encounter Miscellaneous Notes * Mireya Dunaway PA - 01/31/2024 6:09 PM EST Images from the original note were not included. [id number] Diet for Vomiting or Diarrhea (Adult) Your symptoms may return or get worse after eating certain foods listed below. If this happens, stop eating these foods until your symptoms ease and you feel better. Once the vomiting stops, follow the steps below. During the first 12 to 24 hours During the first 12 to 24 hours, follow this diet: ?? Drinks. Have plain water, sports drinks (like electrolyte solutions), drinks without caffeine, mineral water (plain or flavored), and clear fruit juices. Don't have drinks with caffeine or citrus juices. This is because they are high in acid and can irritate your stomach. ?? Soups. Have clear broth. ?? Desserts. Have plain gelatin, frozen ice pops, and fruit juice bars without pieces of fruit. As you feel better, you may add 6 to 8 ounces of yogurt per day. If you have diarrhea, don't have foodsor drinks with sugar, high-fructose corn syrup, or sugar alcohols. During the next 24 hours During the next 24 hours, you may add these to the above: ?? Hot cereal, plain toast, bread, rolls, and crackers ?? Plain noodles, rice, mashed potatoes, and chicken noodle or rice soup ?? Unsweetened canned fruit (not pineapple) and bananas Don't eat more than 15 grams of fat a day. Do this by staying away from margarine, butter, oils, mayonnaise, sauces, gravies, fried foods, peanut butter, meat, poultry, and fish. Don't eat much fiber. Stay away from raw or cooked vegetables, fresh fruits (except bananas), and bran cereals. Limit how much caffeine and chocolate you have. Don't use any spices or seasonings except salt. During the next 24 hours Slowly go back to your normal diet, as you feel better and your symptoms ease. Last Reviewed Date: 2021 00:00:00 ?? [id number] [employer]. All rights reserved. This information is not intended as a substitute for professional medical care. Always follow your healthcare professional's instructions. * [facility] - Mireya Vo PA - 01/31/2024 6:08 PM EST Images from the original note were not included. [id number] Vomiting (adult) Vomiting is when stomach contents come out of the mouth. Nausea is the unpleasant feeling of the need to vomit. It may occur with dizziness, discomfort in the stomach (sour stomach), and no desire toeat. Vomiting is a common symptom that may be due to different causes. These include gastroenteritis (stomach flu), food poisoning, and gastritis. Or it may be a side effect of certain medicines, such as opioids. Other more serious causes of vomiting may be hard to diagnose early in the illness. That's why it's important to watch for the warning signs listed below. Some people may also vomit due to strong emotions like fear or from motion sickness. The main danger from repeated vomiting is dehydration. This is because of the loss of water and minerals from the body. When this occurs, your body fluids must be replaced. Other problems that can happen from vomiting include: ?? Electrolyte imbalance ?? Tears in the esophagus ?? Breathing in of stomach contents (aspiration) ?? Weight loss ?? Not getting enough nutrients Home care ?? If symptoms are severe, rest at home for the next 24 hours. ?? Because your symptoms may be from an infection, wash your hands often and well. Use soap and clean, running water or alcohol-based dealer development manager to keep from spreading the infection to others. ?? Wash your hands for at least 20 seconds. Scrub all surfaces of your hands, including between your fingers and under your fingernails each time you wash. Humming the Happy Birthday song twice whileyou wash is an easy way to make sure you've washed for 20 seconds. ?? Wash your hands after using the toilet, before and after preparing food, and before eating. Alsowash them after changing a diaper, cleaning a wound, caring for a sick person, blowing your nose, coughing, or sneezing. You should also wash your hands after touching pet food or treats and touchingan animal or animal waste. ?? You may use acetaminophen or NSAID medicines such as ibuprofen or naproxen to control fever, unless another medicine was prescribed. Talk with your provider before using these medicines if you have chronic liver or kidney disease or ever had a stomach ulcer or digestive bleeding. Never give aspirin to anyone younger than 18 who is ill with a fever. It may cause severe liver damage. Don't use NS AID medicines if you are already taking one for another condition such as arthritis or take aspirinfor heart disease or after a stroke. ?? Don't use tobacco or drink alcohol. These may make your symptoms worse. If you have trouble stopping either substance, ask your provider for treatment resources. ?? If medicines for vomiting were prescribed, take as directed. Tell your provider if they don't work within the expected time period. Once vomiting stops, then follow these guidelines: During the first 12 to 24 hours, you can have: ?? Fruit juices, like apple and grape, clear fruit drinks, and electrolyte replacement drinks ?? Beverages such as water, soft drinks without caffeine, mineral water (plain or flavored), and decaffeinated tea and coffee ?? Clear broth and bouillon ?? Desserts like plain gelatin, ice pops, and fruit juice bars During the next 24 hours, you may add the following to the above: ?? Hot cereal, plain toast, bread, rolls, and crackers ?? Plain noodles, rice, mashed potatoes, and chicken noodle or rice soup ?? Unsweetened canned fruit such as applesauce or bananas (no pineapple or citrus) ?? Yogurt (6 to 8 ounces) ?? Limited amounts of caffeine and chocolate ?? No spices or seasonings except salt During the next 24 hours, you can gradually go back to your normal diet, as you feel better and your symptoms lessen. Follow-up care Follow up with your healthcare provider as advised. When to seek medical advice Call your healthcare provider right away if any of these occur: ?? Constant pain in the lower right side of your belly or increasing general belly pain ?? Continued vomiting (unable to keep liquids down) for 24 hours ?? Vomiting blood or what looks like coffee grounds ?? Swollen belly ?? Frequent diarrhea (more than 5 times a day), or blood (red or black color) or mucus in diarrhea ?? Peeing less than usual or extreme thirst ?? Weakness, dizziness, or fainting ?? Unusually drowsy or confused ?? Fever of 100.4??F (38??C) or higher, or as directed by your provider ?? Yellow color of the eyes or skin ?? Other symptoms that get worse or new symptoms Last Reviewed Date: 2023 00:00:00 ?? [id number] [employer]. All rights reserved. This information is not intended as a substitute for professional medical care. Always follow your healthcare professional's instructions. * [facility] - Mireya Vo PA - 01/31/2024 6:08 PM EST Images from the original note were not included. [id number] Unknown Causes of Abdominal Pain (Adult) The exact cause of your belly (abdominal) pain is not clear. Your exam and tests don't suggest a dangerous cause at this time. This does not mean that this is something to worry about. Everyone likesto know the exact cause of the problem. But sometimes with belly pain, there is no clear-cut cause,and this could be a good thing. Your symptoms can be treated, and you should feel better. Your condition does not seem serious now. But sometimes the signs of a serious problem may take more time to appear. For this reason, it's important for you to watch for any new symptoms, problems, or if your condition gets worse. Over the next few days, the abdominal pain may come and go. Or it may be constant. Other common symptoms can include nausea and vomiting. Sometimes it can be difficult to tell if you feel nauseous. You may just feel bad and not connect that feeling to nausea. Constipation, diarrhea, and a fever maygo along with the pain. The pain may continue even if treated correctly over the following days. Depending on how things go, sometimes the cause can become clear and you may need more or different treatment. You may also need other evaluations, medicines, or tests. Home care Your healthcare provider may prescribe medicine for pain, symptoms, or an infection. Follow the healthcare provider's instructions for taking these medicines. General care ?? Rest as much as you can until your next exam. No strenuous activities. ?? Try to not do anything that may have caused your symptoms. This might be not taking any medicines unless otherwise directed by your healthcare provider. It might be not eating certain foods or doing certain activities. ?? Find positions that ease discomfort. A small pillow placed on your belly may help relieve pain. ?? Something warm on your belly, such as a heating pad, may help, but be careful not to burn yourself. Diet ?? Don?t force yourself to eat, especially if having cramps, vomiting, or diarrhea. ?? Water is important so you don't get dehydrated. Soup may also be good. Sports drinks may also help, especially if they are not too acidic. Don't drink sugary drinks as this can make things worse. Take liquids in small amounts. Don?t guzzle them. ?? Caffeine sometimes makes the pain and cramping worse. ?? Don?t take dairy products if you have vomiting or diarrhea. ?? Don't eat large amounts at a time. Eat several small meals during the day instead of 2 or 3 larger meals. Wait a few minutes between bites. ?? Eat a diet low in fiber (called a low-residue diet). Foods allowed include refined breads, whiterice, fruit and vegetable juices without pulp, tender meats. These foods will pass more easily through the intestine. ?? Don?t have whole-grain foods, whole fruits and vegetables, meats, seeds, and nuts, fried or fatty foods, dairy, alcohol and spicy foods until your symptoms go away. Follow-up care Follow up with your healthcare provider, or as advised, if your pain does not begin to improve in the next 24 hours. Call 911 Call 911 if any of these occur: ?? Trouble breathing ?? Confusion ?? Fainting or loss of consciousness ?? Rapid heart rate ?? Seizure When to get medical advice Call your healthcare provider right away if any of these occur: ?? Pain gets worse or moves to the right lower abdomen ?? Vomiting or diarrhea that is new or gets worse ?? Swelling of the abdomen ?? Unable to pass stool for more than 3 days ?? Fever of 100.4??F (38??C) or higher, or as directed by your healthcare provider ?? Blood in vomit or bowel movements (dark red or black color) ?? Yellow color of eyes and skin (jaundice) ?? Weakness, dizziness ?? Chest, arm, back, neck, or jaw pain ?? Can't keep down medicines, liquids, or water because of too much vomiting ?? If you have a vagina: unexpected vaginal bleeding or missed period Last Reviewed Date: 2023 00:00:00 ?? [id number] [employer]. All rights reserved. This information is not intended as a substitute for professional medical care. Always follow your healthcare professional's instructions. * ED Provider Notes - Mireya Vo PA - 01/31/2024 4:31 PM EST Images from the original note were not included. - HPI Chief Complaint Patient presents with Abdominal Pain Lila Mcnally is a 38 y.o. female well known to the ER with PMH fibromyalgia, GERD, PUD, pancreatitis, chronic abdominal pain, HTN, anxiety/depression, EtOH use who presents to the Emergency Department with complaints of Abdominal Pain. Reports vomited a couple times and took her last oxycodone.Says has intake pain clinic appt tomorrow at 1pm. Says has her typical LUQ/epigastric pain as well w ith normal stool production. Denies fever, injury, , symptoms, diarrhea, constipation. Patient History Past Medical History: Diagnosis Date Anxiety Arthritis Depression Fibromyalgia Gastric erosions 04/19/2021 GERD (gastroesophageal reflux disease) Hypertension Intentional overdose ([facility]) 12/20/2021 Nicotine dependence Obesity Pancreatitis Past Surgical History: Procedure Laterality Date CHOLECYSTECTOMY DILATION AND CURETTAGE OF UTERUS ERCP ESOPHAGOGASTRODUODENOSCOPY HAND SURGERY Right ORAL SURGERY Family History Problem Relation Name Age of Onset Hypertension Mother Coronary artery disease Father Lung cancer Maternal Grandmother Coronary artery disease Maternal Grandfather Coronary artery disease Paternal Grandfather Colon cancer Other Tobacco Use Smoking status: Every Day Current packs/day: 0.50 Average packs/day: 0.5 packs/day for 20.0 years (10.0 ttl pk-yrs) Types: Cigarettes Smokeless tobacco: Never Vaping Use Vaping status: Never Used Substance Use Topics Alcohol use: Yes Comment: was drinking heavily x 7yrs up to a few months ago; no ETOH in a few monthhs Drug use: Yes Types: Marijuana Comment: a few times a month Allergies: Allergies Allergen Reactions Compazine [Prochlorperazine] Other - please document in the comment field Dystonic rxn treated w/ diphenhydramine Droperidol Other - please document in the comment field Experienced an acute dystonic reaction treated with diphenhydramine Tramadol Rash, Other - please document in the comment field and Dizziness Hypertension Patient described previously experiencing panic attacks too. Physical Exam ED Triage Vitals [01/31/24 1643] Temp Heart Rate Resp BP 37 ??C (98.6 ??F) 96 18 (!) 155/92 SpO2 Temp Source Heart Rate Source Patient Position 98 % Oral Monitor Sitting BP Location FiO2 (%) Right arm -- Physical Exam Constitutional: General: She is not in acute distress. Appearance: She is not ill-appearing, toxic-appearing or diaphoretic. HENT: Head: Normocephalic and atraumatic. Eyes: General: No scleral icterus. Cardiovascular: Rate and Rhythm: Normal rate and regular rhythm. Pulmonary: Effort: Pulmonary effort is normal. Breath sounds: Normal breath sounds. Abdominal: General: Abdomen is flat. Palpations: Abdomen is soft. Tenderness: There is abdominal tenderness in the epigastric area and left upper quadrant. Skin: General: Skin is warm and dry. Capillary Refill: Capillary refill takes less than 2 seconds. Coloration: Skin is not jaundiced. Neurological: General: No focal deficit present. Mental Status: She is alert and oriented to person, place, and time. Psychiatric: Mood and Affect: Mood normal. Behavior: Behavior normal. No data recorded ED Course & MDM - Assessment: 38 y.o. female presents to ED with complaint of abdominal pain. It should be noted that the chronicconditions includes chronic abdominal pain, obesity, GERD, PUD, fibromyalgia, anxiety, depression, which currently is not at goal therapy. This complicates the clinical picture because it Comorbidities: may be exacerbating symptoms Differential Diagnosis: acute on chronic abdominal pain, acute on chronic vomiting, vol depletion, pancreatitis, electrolyte derangement, gastritis, , fibromyalgia, PUD, opioid induced hyperalgesia, viral syndrome In order to fully explore the differential diagnosis the following treatments and tests were ordered: ED Medication Administration from 01/31/2024 1631 to 01/31/2024 1835 Date/Time Order Dose Route Action 01/31/2024 1722 EST ondansetron (Zofran) injection 4 mg 4 mg Intravenous Given 01/31/2024 1722 EST oxyCODONE (Roxicodone) immediate release tablet 5 mg 5 mg Oral Given 01/31/2024 1723 EST HYDROmorphone (Dilaudid) injection 0.5 mg 0.5 mg Intravenous Given 01/31/2024 1817 EST oxyCODONE (Roxicodone) immediate release tablet 5 mg 5 mg Oral Given All Other Orders Ordered Status Ordering Provider 01/31/24 1659 CBC w/diff STAT Final result MIREYA VO 01/31/24 1659 CMP STAT Final result MIREYA VO 01/31/24 1659 Lipase STAT Final result MIREYA VO 01/31/24 1659 hCG qualitative STAT Final result MIREYA VO 01/31/24 1659 SARS-CoV-2 COVID-19/Influenza A,B STAT Final result MIREYA VO ED Course as of 01/31/24 1835 Sun Jan 31, 2024 1740 CBC w/diff(!) No leukocytosis [AB] 1804 SARS-CoV-2 COVID-19/Influenza A,B Neg [AB] 1805 hCG qualitative Neg [AB] 1805 Lipase Within normal limits. [AB] 1805 CMP(!) No JYOTSNA, no gap, no biliary obstructive pattern, unremarkable electrolytes [AB] ED Course User Index [AB] Mireya Vo PA Clinical Impressions as of 01/31/241834 Nausea and vomiting, unspecified vomiting type LUQ abdominal pain Social Determinates of Health Risks (including Economic Stability, Education and level of understanding, Healthcare access and quality and concerning social factors): Inability to see a healthcare specialist in timely manner. Patient is at her baseline today. Will give a dose of IV dilaudid, IV zofran, followed by PO oxycodone for longer duration of pain control. Labs showed no acute findings. Reassessed, is improved and ready for discharge. Patient prescribed a short course of rectal phenergan to have as backup antiemetic, to stay hydrated, follow up with PCP and GI and keep pain clinic intake appt tomorrow. She is agreeable with plan and given return precautions. Ultimately, this patient was Was discharged Home (Discharge) The primary encounter diagnosis was Nausea and vomiting, unspecified vomiting type. A diagnosis of LUQ abdominal pain was also pertinent to this visit. . Patient was counseled on the diagnoses. Discharge medications if any are listed below. Listed medications are thought be either curative for listed diagnoses or will help control ongoing symptoms. Patient is requested to follow up with Patient's Primary Care Provider, GI, and pain clinic in order to obtain routine follow-up and specialty care. Instructions on follow up as well as precautions to return to the ER provided verbally by the EM provider, as well as written in patients discharge education packet. ED Prescriptions Medication Sig Dispense Start Date End Date Auth. Provider promethazine (Phenergan) 12.5 MG suppository Insert 1 suppository (12.5 mg) into the rectum every 6(six) hours if needed for nausea or vomiting for up to 7 days. 12 each 01/31/2024 02/07/2024 Mireya Vo PA Discharge Instructions Stay well hydrated, continue home meds, ensure to keep intake pain clinic appt tomorrow, continue to abstain from alcohol. Return to ER if develop fever, intractable pain, intractable vomiting, worsening symptoms or any concern Disposition Discharge - Mireya Vo PA 01/31/241834 Cosigned by Carter Donis MD at 02/01/2024 10:54 AM EST Associated attestation - Carter Donis MD - 02/01/2024 10:54 AM EST I attest to being involved in more than half the total time in patient care. * ED Triage Notes - Alexandria Hernandez RN - 01/31/2024 4:31 PM EST Complaining of abdominal pain, N/V that started last night and worsened today. She was admitted forpain management one week ago and prescribed oxycodone 10mg. She is now out because she had to take over the prescribed amount because she kept throwing them up. She has apt with the pain management tomorrow. documented in this encounter Plan of Treatment Not on file documented as of this encounter Procedures Procedure Name Priority Date/Time Associated Diagnosis Comments SARS COV2 COVID 19/INFLUENZA A, B STAT 01/31/2024 5:22 PM EST CBC WITH AUTO DIFFERENTIAL STAT 01/31/2024 5:22 PM EST TEST QUALITATIVE PLASMA STAT 01/31/2024 5:22 PM EST LIPASE, PLASMA STAT 01/31/2024 5:22 PM EST COMPREHENSIVE METABOLIC PANEL, PLASMA STAT 01/31/2024 5:22 PM EST documented in this encounter Results * SARS-CoV-2 COVID-19/Influenza A,B (01/31/2024 5:22 PM EST) SARS CoV-2/COVID-19 RNA PCR Result Not Detected Not Detected 01/31/2024 6:02 PM EST [facility] Comment:For In Vitro Diagnos tic Use Influenza A Virus PCR Result Not Detected Not Detected 01/31/2024 6:02 PM EST [facility] Comment:For In Vitro Diagnos tic Use Influenza B Virus PCR Result Not Detected Not Detected 01/31/2024 6:02 PM EST [facility] Comment:For In Vitro Diagnos tic Use Swab Nasopharyngeal structure / Unknown Non-blood Collection / Unknown 01/31/2024 5:22 PM EST 01/31/2024 5:37 PM EST Narrative [facility] - 01/31/2024 6:02 PM EST This test was performed using the [employer] SARS-CoV-2 & Influenza A/B assay on the [employer] analyzer, an RT-PCR based method. Negative results do not preclude infection with the SARS-CoV-2 virus and should not be the sole basis of a patient treatment/management or public health decision. Follow up testing should be performed according to the current CDC recommendations. The limit of detection (LoD) for this assay is 12 cp/mL SARS-CoV-2 RNA. Use of the Slime SARS-CoV-2 & Influenza A/B assay in an asymptomatic screening??population is intended to be used as?? part of an infection control plan that may include additional preventative measures, such as a predefined serial testing plan or directed testing of high-risk individuals. Negative results should be considered presumptive and do not preclude current or future infection obtained through community transmission or other exposures. Negative results must be considered in the context of an individual's recent exposures, history, presence of clinical signs and symptoms consistent with COVID-19. [facility] MICROBIOLOGY - GENERAL ORDER STACIA Final Result [facility] [address] [place] [address] * hCG qualitative (01/31/2024 5:22 PM EST) Test Negative Negative 01/31/2024 6:01 PM EST [facility] Blood Venous blood specimen / Unknown Venipuncture / Unknown 01/31/2024 5:22 PM EST 01/31/2024 5:37 PM EST Narrative [facility] - 01/31/2024 6:01 PM EST Reference Range: Males and non- females: Negative. [facility] BLOOD ORDERABLES Final Resul t Performing Organization Address City/[facility]/ZIP Co de Phone Number [facility] [address] [place] [address] * Lipase (01/31/2024 5:22 PM EST) Lipase, Plasma 30 19 - 63 U/L 01/31/2024 6:01 PM EST [facility] Blood Venous blood specimen / Unknown Venipuncture / Unknown 01/31/2024 5:22 PM EST 01/31/2024 5:37 PM EST us [facility] BLOOD ORDERABLES Final Resul t Performing Organization Address [facility] Co de Phone Number [facility] [address] [place] [address] * (ABNORMAL) CMP (01/31/2024 5:22 PM EST) Glucose, Plasma 105(H) 74 - 99 mg/dL 01/31/2024 6:01 PM EST [facility] BUN, Plasma 7 7 - 21 mg/dL 01/31/2024 6:01 PM EST [facility] Creatinine, Plasma 0.50(L) 0.60 - 1.10 mg/dL 01/31/2024 6:01 PM EST [facility] BUN/Creatinine Ratio 14 01/31/2024 6:01 PM EST [facility] Sodium, Plasma 135(L) 136 - 145 mmol/L 01/31/2024 6:01 PM EST [facility] Potassium, Plasma 4.2 3.6 - 4.9 mmol/L 01/31/2024 6:01 PM EST [facility] Chloride, Plasma 104 97 - 107 mmol/L 01/31/2024 6:01 PM EST [facility] CO2, Plasma 22 22 - 29 mmol/L 01/31/2024 6:01 PM EST [facility] Anion Gap 9 6 - 16 mmol/L 01/31/2024 6:01 PM EST [facility] Total Calcium, Plasma 8.9 8.9 - 10.2 mg/dL 01/31/2024 6:01 PM EST [facility] Total Protein 6.5 6.3 - 7.9 g/dL 01/31/2024 6:01 PM EST [facility] Albumin, Plasma 3.8 3.5 - 5.2 g/dL 01/31/2024 6:01 PM EST [facility] AST, Plasma 23 10 - 35 U/L 01/31/2024 6:01 PM EST [facility] ALT, Plasma 33 10 - 35 U/L 01/31/2024 6:01 PM EST [facility] Alkaline Phosphatase, Plasma 104 35 - 104 U/L 01/31/2024 6:01 PM EST [facility] Total Bilirubin, Plasma <0.2(L) 0.2 - 1.1 mg/dL 01/31/2024 6:01 PM EST [facility] eGFRcr 124.1 mL/min/1.7 3m*2 01/31/2024 6:01 PM EST [facility] Comment:Reported eGFRcr in m L/min/1.73m2 is based the CKD-EPI 2020 equation that does not use a race coefficient. Blood Venous blood specimen / Unknown Venipuncture / Unknown 01/31/2024 5:22 PM EST 01/31/2024 5:37 PM EST [facility] BLOOD ORDERABLES Final Resul t [facility] [address] [place] [address] * (ABNORMAL) CBC w/diff (01/31/2024 5:22 PM EST) WBC Count 6.35 3.70 - 10.30 10*3/uL LAB HEMATOLOGY METHOD 01/31/2024 5:40 PM EST [facility] RBC Count 4.30 3.90 - 5.20 10*6/uL LAB HEMATOLOGY METHOD 01/31/2024 5:40 PM EST [facility] HGB 11.0(L) 11.2 - 15.7 g/dL LAB HEMATOLOGY METHOD 01/31/2024 5:40 PM EST [facility] HCT 34.7 34.0 - 45.0 % LAB HEMATOLOGY METHOD 01/31/2024 5:40 PM EST [facility] Platelet Count 207 155 - 369 10*3/uL LAB HEMATOLOGY METHOD 01/31/2024 5:40 PM EST [facility] MCV 81 79 - 98 fL LAB HEMATOLOGY METHOD 01/31/2024 5:40 PM EST [facility] MCH 25.6(L) 26.0 - 32.0 pg LAB HEMATOLOGY METHOD 01/31/2024 5:40 PM EST [facility] MCHC 31.7 30.7 - 35.5 g/dL LAB HEMATOLOGY METHOD 01/31/2024 5:40 PM EST [facility] RDW 16.1(H) 11.5 - 14.5 % LAB HEMATOLOGY METHOD 01/31/2024 5:40 PM EST [facility] MPV 9.9 8.8 - 12.5 fL LAB HEMATOLOGY METHOD 01/31/2024 5:40 PM EST [facility] nRBC 0.0 <=0.0 per 100 WBCs LAB HEMATOLOGY METHOD 01/31/2024 5:40 PM EST [facility] Differential Type Automated LAB HEMATOLOGY METHOD 01/31/2024 5:40 PM EST [facility] Neutrophils % 65 % LAB HEMATOLOGY METHOD 01/31/2024 5:40 PM EST [facility] Lymphocytes % 25 % LAB HEMATOLOGY METHOD 01/31/2024 5:40 PM EST [facility] Monocytes % 6 % LAB HEMATOLOGY METHOD 01/31/2024 5:40 PM EST [facility] Eosinophils % 2 % LAB HEMATOLOGY METHOD 01/31/2024 5:40 PM EST [facility] Basophils % 1 % LAB HEMATOLOGY METHOD 01/31/2024 5:40 PM EST [facility] Immature Granulocytes % 1 % LAB HEMATOLOGY METHOD 01/31/2024 5:40 PM EST [facility] Neutrophils Absolute 4.16 1.60 - 6.10 10*3/uL LAB HEMATOLOGY METHOD 01/31/2024 5:40 PM EST [facility] Lymphocytes Absolute 1.60 1.20 - 3.90 10*3/uL LAB HEMATOLOGY METHOD 01/31/2024 5:40 PM EST [facility] Monocytes Absolute 0.35 0.30 - 0.90 10*3/uL LAB HEMATOLOGY METHOD 01/31/2024 5:40 PM EST [facility] Eosinophils Absolute 0.15 0.00 - 0.50 10*3/uL LAB HEMATOLOGY METHOD 01/31/2024 5:40 PM EST [facility] Basophils Absolute 0.05 0.00 - 0.10 10*3/uL LAB HEMATOLOGY METHOD 01/31/2024 5:40 PM EST [facility] Immature Granulocytes Absolute 0.04 0.00 - 0.06 10*3/uL LAB HEMATOLOGY METHOD 01/31/2024 5:40 PM EST [facility] Blood Venous blood specimen / Unknown Venipuncture / Unknown 01/31/2024 5:22 PM EST 01/31/2024 5:37 PM EST Narrative [facility] - 01/31/2024 5:40 PM EST Therapeutic decision making should be based on absolute values, rather than percentages. us [facility] BLOOD ORDERABLES Final Resul t [facility] [address] [place] [id number] documented in this encounter Visit Diagnoses Diagnosis Nausea and vomiting, unspecified vomiting type- Primary LUQ abdominal pain Abdominal pain, left upper quadrant documented in this encounter Administered Medications Inactive Administered Medications - up to 3 most recent administrations Medication Order MAR Action Action Date Dose Rate Site HYDROmorphone (Dilaudid) injection 0.5 mg 0.5 mg, Intravenous, Once, 1 dose, On 01/31/24 at 1700, Routine Given 01/31/2024 5:23 PM EST 0.5 mg ondansetron (Zofran) injection 4 mg 4 mg, Intravenous, Once, 1 dose, On 01/31/24 at 1700, STAT Given 01/31/2024 5:22 PM EST 4 mg oxyCODONE (Roxicodone) immediate release tablet 5 mg 5 mg, Oral, Once, 1 dose, On 01/31/24 at 1700, STAT Given 01/31/2024 5:22 PM EST 5 mg oxyCODONE (Roxicodone) immediate release tablet 5 mg 5 mg, Oral, Once, 1 dose, On 01/31/24 at 1805, STAT Given 01/31/2024 6:17 PM EST 5 mg documented in this encounter Active and Recently Administered Medications Times are shown in EST. Scheduled Medication Order 01/29/2024 01/30/2024 01/31/2024 HYDROmorphone (Dilaudid) injection 0.5 mg (COMPLETED) 0.5 mg, Intravenous, Once, 1 dose, On 01/31/24 at 1700, Routine 1723 (Given - Provid er: Alexandria Hernandez RN) ondansetron (Zofran) injection 4 mg (COMPLETED) 4 mg, Intravenous, Once, 1 dose, On 01/31/24 at 1700, STAT 1722 (Given - Provid er: Alexandria Hernandez RN) oxyCODONE (Roxicodone) immediate release tablet 5 mg (COMPLETED) 5 mg, Oral, Once, 1 dose, On 01/31/24 at 1700, STAT 1722 (Given - Provid er: Alexandria Hernandez RN) oxyCODONE (Roxicodone) immediate release tablet 5 mg (COMPLETED) 5 mg, Oral, Once, 1 dose, On 01/31/24 at 1805, STAT 1817 (Given - Provid er: Lester Baker RN) documented in this encounter Additional Health Concerns Infection Onset Date Last Indicated Resolved Time COVID-19 Rule-Out 01/31/2024 01/31/2024 01/31/2024 6:02 PM EST Assessment Noted Time A fall risk assessment has been complete d for the patient 11/21/2020 2:30 PM EDT A Body Mass Index follow-up plan has been documented for the patient 01/25/2024 2:48 PM EST documented as of this encounter Care Teams Mold Repair Technician Relationship Specialty Start Date End Date Lisa Foote APRN [address] [place], [place] [id number] PCP - General 10/23/23 documented as of this encounter
--- OUTSIDE RECORDS SUMMARY | 2024-02-03 15:07 | XMS_ITS | Encounter Summary ---
Author Organization [facility] Address [address] [place] [address] Care Team Providers Care Hand Compositor Name Role Phone Lisa Foote Beatriz ORELLANA Primary Care Provider Encounter Details Date Type Department Care Team (Latest Contact Info) Description 01/23/2024 Travel Social History Tobacco Use Types Packs/Day [...] afraid of your partner or ex-partner? No 10/27/2023 Within the last year, have y ou been humiliated or emotionally abused in other ways by your partner or ex-partner? No Within the last year, have y ou been kicked, hit, slapped, or otherwise physically hurt by your partner or ex-partner? No 10/27/2023 Within the last year, have y ou been raped or forced to have any kind of sexual activity by your partner or ex-partner? No 10/27/2023 PHQ-2 Answer Date Recorded Patient Health Questionnaire-2 Score 2 11/21/2020 Hunger Vital Sign Answer Date Recorded Within the past 12 months, y ou worried that your food would run out before you got the money to buy more. Never true 10/27/19 24 Within the past 12 months, t he food you bought just didn't last and you didn't have money to get more. Never true 10/27/2023 PRAPARE - Transportation Answer Date Re corded In the past 12 months, has l ack of transportation kept you from medical appointments or from getting medications? No 04/2023 In the past 12 months, has l ack of transportation kept you from meetings, work, or from getting things needed for daily living? No 10/27/2023 Housing Stability Vital Sign Answer [...] place to sleep or slept in a penitentiary (including now)? No 10/27/2023 CAGE ASSESSMENT Answer Date Recorded Due to [...] drink first t caleb in the morning (EYE-SCREENING TECH) to steady your nerves or to get rid of a hangover? 0 10/24/2023 CAGE Questionnaire Score 0 024 Utilities Answer Date Recorded In the past 12 months has th e electric, gas, oil, or water company threatened to shut off services in your home? No 10/27/2023 Comments No Sex and Gender Information Value [...] filedocumented in this encounter Additional Health Concerns Assessment Noted Time A fall risk assessment has been complete d for the patient 11/21/2020 2:30 PM EDT A Body Mass Index follow-up plan has been documented for the patient 01/25/2024 2:48 PM EST documented as of this encounter Care Teams Hand Compositor Relationship Specialty Start Date End Date Lisa Foote APRN [address] [place], [place] [phone] PCP - General 10/23/23 documented as of this encounter
--- OUTSIDE RECORDS SUMMARY | 2024-02-03 15:07 | XMS_ITS | Encounter Summary ---
Author Organization Healthcare Address [address] [place] [address] Care Team Providers Care Hand Straightener Name Role Phone Lisa Foote ESTEBAN Primary Care Provider [phone] Reason for Visit * Reason Comments Abdominal Pain n Nausea Vomiting * Auth/Cert (Routine) Specialty Diagnoses / Procedures Referred By Susy t Referred To Contact Diagnoses Epigastric pain Vivek Clarke MD [address] [place] [address] Phone: tel: fax: [facility] [address] [place] [address] Phone: tel: Referral ID Status Reason Start Date Expiration Date Visits Re quested Visits Authorized [id number] 1 1 Encounter Details Date Type Department Care Team (Late st Contact Info) Description 01/22/2024 3:07 PM EST - 01/25/2024 3:05 PM EST Emergency [facility] [address] [place] [address] Nas Reynaga MD [address] [place] [address] Vivek Clarke MD [address] [place] [address] Juventino Holcomb MD [address] [place] [address] Mary Sotelo MD [address] [facility] [address] [place] [address] Abdominal pain, unspecified abdominal location (Primary Dx) Discharge Disposition: Home or Self Care Social History Tobacco Use Types Packs/Day Years Used Date Smoking Tobacco: Every Day Cigarettes 0.5 20 Smokeless Tobacco: Never Tobacco Cessation:Ready to Q [...] place to sleep or slept in a [place] (including now)? No 10/27/2023 Housing Stability Vital Sign Answer Dennis e Recorded In the last 12 months, was t here a time when you were not able to pay the mortgage or rent on time? No 01/25/2024 In the past 12 months, how m any times have you moved where you were living? 1 01/25/2024 At any time in the past 12 m [facility], were you homeless or living in a [place] facility (including now)? No 01/25/2024 CAGE ASSESSMENT Answer [...] drink first t caleb in the morning (EYE-HAND GRINDER) to steady your nerves or to get rid of a hangover? 0 10/24/2023 CAGE Questionnaire Score 0 024 Utilities Answer Date Recorded In the past 12 months has e electric, gas, oil, or water company [...] Sign Reading Time Taken Comments Blood Pressure 127/98 01/25/2024 11:33 AM EST Pulse 85 01/25/2024 11:33 AM EST Temperature 36.5 ??C (97.7 ??F) 01/25/2024 11:[address] Respiratory Rate 16 01/25/2024 11:33 AM EST Oxygen Saturation 97% 01/25/2024 11:33 AM EST Inhaled Oxygen Concentration - - [...] Laureen Carrillo RN documented in this encounter Medications at Time [...] within 12 hours or as directed by . 9 patch 01/26/2024 naloxone (Narcan) 4 mg/0.1 mL nasal spray 1. Give 1 spray in nostril for no/slow breathing or cannot wake after opioid use 2. Call 911 3. Repeat in other nostril if symptoms continue 1 each 01/25/2024 oxyCODONE (Roxicodone) 10 MG immediate release tablet Take 1 tablet (10 mg) by mouth every 6 (six) hours for 10 days. 40 tablet 01/25/2024 4 pantoprazole (Protonix) 40 MG EC tablet Take 1 tablet (40 mg) by mouth 1 (one) time each day. Do not crush, chew, or split. pregabalin (Lyrica) 300 MG capsule Take 1 capsule (300 mg) by mouth 2 (two) times a day. Senexon-S 8.6-50 MG tablet Take 1 tablet by mouth if needed for constipation. 30 tablet 2 01/25/2024 sucralfate (Carafate) 1 GM/10ML suspension Take 10 mL (1 g) by mouth 4 (four) times a day (before meals and nightly). 473 mL 01/25/2024 ondansetron ODT (Zofran-ODT) 4 MG disintegrating tablet Take 1 tablet (4 mg) by mouth every 6 (six) hours if needed for nausea. 12 tablet 12/26/2023 4 promethazine (Phenergan) 25 MG tablet Take 1 tablet (25 mg) by mouth every 8 (eight) hours if needed for nausea or vomiting. 21 tablet 10/13/2023 4 documented as of this encounter Miscellaneous Notes * Progress Notes - Dipika Zamora - 01/25/2024 3:05 PM EST Case Management Discharge Note Rosibel Gayle 38 y.o. female CSN: [id number] Admission: 01/22/2024 3:07 PM Primary Problem: Epigastric pain Primary Ward Aide: Primary Caregiver: Self Assistance Available at Discharge: Availability of Care Givers (#Hours): No assistance needed Family/Ward Aide(s) Willingness Assessed to care for patient at home: Yes Family/Ward Aide(s) Readiness Assessed to care for patient at home: Yes Housing Circumstances-Z Codes: Housing Circumstances (select all that apply): Low Income (101-300% Federal Poverty Guidlines) - Z596 Discharge Facility/Level of Care Needs: Discharge Facility/Level of Care Needs: 1-Home or Self Care DME/Equipment Needed after Discharge: Equipment Currently Used at Home: none Equipment Needed After Discharge: none [facility] [address] Discharge Transportation: Transportation Anticipated: family or friend will provide Transportation Home at Discharge: Family/Friend will Provide Has discharge transport been arranged?: Yes What day is the transport expected?: 01/25/24 What time is the transport expected?: 1600 Follow Up Transport: Transportation Needed to Follow up Appoinments: Family/Friend will Provide Additional Comments: Per team, pt is medically ready for discharge. Pt will discharge to her home in [place] where shelives with her S/O and 3 children. Pts S/O has a car and is able to transport her home. Pt stated that he works second shift so he is not always available to assist her with transportation to appointments. Pt was given the phone number and is aware of how to obtain medicaid transportation in her area. No SW needs were identified at the time of discharge. Dipika Zamora * Discharge Summary - Fior Lerma MD - 01/25/2024 1:34 PM EST Hospitalization Admit Date/Time: 01/22/2024 3:07 PM Admitting Attending: Vivek Clarke Discharge Date: 01/25/2024 Discharge Attending Physician: Mary Sotelo MD PCP name and Address: [facility] [address] [facility] [address] Referring provider name and address: No referring provider defined for this encounter. Chief Concern, Brief History of Present Illness, and Hospital Course History of Presenting Illness: Rosibel Gayle is a 38 y.o.F w/ PMHx of Pancreatitis, PUD, and Anxiety, who presented to [facility] on 01/22/2024 with Epigastric pain and intractable N/V. Lab work and imaging at that time was overall remarkable. Patient was ultimately admitted to medicine team due to intractable nausea vomiting and inability to tolerate by mouth. Patient was started on pain regimen and continued on home medications. On 01/23/2024 family medicine team reached and agreed to transfer patient to service due to census/numbers on medicine team. This patient is not an FM patient and has outside PCP Lisa Foote APRN. On chart review it appears that patient has had longstanding abdominal pain which dates back to 2019. Appears that patient has had questionable chronic pancreatitis, history of cholecystitis and cholelithiasis status post cholecystectomy complicated by 2 no choledocholithiasis and ERCP in April 2020. Patient has had difficulty controlling her pain outpatient. Multiple ED visits and hospitalizations in the past due to uncontrolled pain, nausea, vomiting. Patient states that she was following with pain medicine and was planning on pain pump earlier in the year plan unfortunately suffered from miscarriage and was lost to follow up. ED Course: Patient was transfer from Hospital Medicine Problem Based Summaries: #Relapsing Epigastric Pain with Intractable Nausea/Vomiting #Hx of Pancreatitis #Marijuana and Alcohol Use Patient has longstanding history of chronic abdominal pain and intermittent bouts of nausea and vomiting. Has followed with GI in the past. Now status post cholecystectomy and ERCP in 2020. Upon thisadmission labs and imaging overall WNL. At this time low suspicion for acute versus chronic pancreatitis. Broad differential diagnosis including gastritis, gastric ulcer, PUD, gastroparesis, cyclic vomiting syndrome secondary to marijuana use. Previously had intended to follow up in pain managementclinic but due to suffering a miscarriage earlier this year missed appointment and was lost to follow up. Patient was continued on tylenol 1000 mg q6H, lyrica 300 mg BID and started on 7.5 mg oxycodone q6H for ongoing abdominal pain. Initially patient had morphine 2 mg IV q2H for breakthrough pain but was able to be weaned off on 01/23. On 01/23 increased oxycodone to 10 mg q6H due to ongoing pain.Overnight 01/23 to 01/24 patient given one dose of dilaudid 0.25 mg for breakthrough pain and 10 mg bentyl 4 times daily was added. Patient was on zofran 4 mg IV or oral prn nausea. Initially patient was started on full liquid diet but was able to resume regular diet on day of discharge, 01/24. On dayof discharge we contacted [facility] management in [place], [place], to schedule patient for appointment. Patient was scheduled for follow up in pain management clinic on 02/02 at 1 pm. Patient expressed u nderstanding of this appointment. Patient was discharged with carafate, oxycodone 10 mg q6H for total of 10 day supply and narcan, lidocaine patches, bentyl, amitriptyline. She will plan to follow upin pain management clinic. #Borderline transaminitis On am labs 01/24 very slight increase in AST and ALT. Continue to monitor outpatient. # Concern for EtOH Withdrawal: Last alcoholic beverage 01/19 (self-reported 3-4 alcoholic beverages). CIWA protocol initiated withp.r.n. Valium. Due to patient not requiring prns overnight CIWA protocol was discontinued on 01/23. POA UDS presumptive positive for cannabinoids, benzodiazepines, and oxycodone. 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 initiated. Discontinued on discharge. # History of PUD: Continue with Protonix 40 mg daily # Obesity: Complicates all aspects of care New Medications: Amitriptyline 25 mg nightly for pain and mood, bentyl 10 mg qid for pain, lidocaine patches for low back pain, naloxone, oxycodone 10 mg q6H for 10 day supply, sucralfate. Discontinued Medications: None Medication Modifications: None TCM Follow-up: Issues to discuss at follow up visit: - Symptoms? Ongoing abdominal pain, lumbar back pain, nausea and vomiting - Meds? Assess need for refills. - Referrals? None anticipated. - Labs? Consider CMP to evaluate for borderline mild transaminitis seen during admission. Outside Specialities & Follow-up Appointments: Follow-up: PCP No future appointments. Follow up in [facility] pain management clinic in [place] Visit Vitals BP 114/76 Pulse 73 Temp 36.9 ??C (98.4 ??F) Resp 16 SpO2 99% OB Status Having periods Smoking Status Every Day Surgeries and Procedures None Medication List .. acetaminophen 325 MG tablet Commonly known as: Tylenol Take 2 tablets (650 mg) by mouth 3 (three) times a day. And As Needed. amitriptyline 25 MG tablet Commonly known as: Elavil Take 1 tablet (25 mg) by mouth every night. dicyclomine 10 MG capsule Commonly known as: Bentyl Take 1 capsule (10 mg) by mouth 4 (four) times a day. lidocaine 5 % patch Commonly known as: Lidoderm Apply 1 patch topically 1 (one) time each day at the same time over 12 hours. Remove & discard patch within 12 hours or as directed by MD. Start taking on: January 26, 2024 naloxone 4 mg/0.1 mL nasal spray Commonly known as: Narcan 1. Give 1 spray in nostril for no/slow breathing or cannot wake after opioid use 2. Call 911 3. Repeat in other nostril if symptoms continue ondansetron ODT 4 MG disintegrating tablet Commonly known as: Zofran-ODT Take 1 tablet (4 mg) by mouth every 6 (six) hours if needed for nausea. oxyCODONE 10 MG immediate release tablet Commonly known as: Roxicodone Take 1 tablet (10 mg) by mouth every 6 (six) hours for 10 days. pantoprazole 40 MG EC tablet Commonly known as: Protonix Take 1 tablet (40 mg) by mouth 1 (one) time each day. Do not crush, chew, or split. pregabalin 300 MG capsule Commonly known as: Lyrica Take 1 capsule (300 mg) by mouth 2 (two) times a day. promethazine 25 MG tablet Commonly known as: Phenergan Take 1 tablet (25 mg) by mouth every 8 (eight) hours if needed for nausea or vomiting. Senexon-S 8.6-50 MG tablet Generic drug: senna-docusate Take 1 tablet by mouth if needed for constipation. sucralfate 1 GM/10ML suspension Commonly known as: Carafate Take 10 mL (1 g) by mouth 4 (four) times a day (before meals and nightly). Where to Get Your Medications These medications were sent to [facility] - [place], [place] - [address] [place] [address] [address] [place] [address] amitriptyline 25 MG tablet dicyclomine 10 MG capsule lidocaine 5 % patch naloxone 4 mg/0.1 mL nasal spray oxyCODONE 10 MG immediate release tablet Senexon-S 8.6-50 MG tablet sucralfate 1 GM/10ML suspension Discharge Diagnosis Medical Problems Active and Resolved Hospital Problems Hospital Anxiety (Chronic) Fibromyalgia (Chronic) GERD (gastroesophageal reflux disease) (Chronic) Obesity (Chronic) Chronic pain (Chronic) Intractable nausea and vomiting Depression * (Principal) RESOLVED: Epigastric pain Post Discharge Instructions Please take all medications as prescribed and keep all follow ups. Outpatient Follow-Up No future appointments. Test Results Pending At Discharge Pending Labs Order Current Status Benzodiazepine Confirm Urine In process OXYCODONE CONFIRMATION,URINE In process Opiates Confirm Urine In process THC Urine Confirm LCMSMS In process Pertinent Physical Exam At Time of Discharge Physical Exam Physical Exam Constitutional: General: She is in acute distress. Appearance: She is not ill-appearing. HENT: Head: Normocephalic and atraumatic. Right Ear: External ear normal. Left Ear: External ear normal. Nose: Nose normal. Mouth/Throat: Mouth: Mucous membranes are moist. Pharynx: Oropharynx is clear. Eyes: Extraocular Movements: Extraocular movements intact. Cardiovascular: Rate and Rhythm: Normal rate and regular rhythm. Pulmonary: Effort: Pulmonary effort is normal. No respiratory distress. Abdominal: General: There is no distension. Palpations: Abdomen is soft. Tenderness: There is abdominal tenderness in the epigastric area and left upper quadrant. There is no guarding. Negative signs include Carlson's sign. Musculoskeletal: Right lower leg: No edema. Left lower leg: No edema. Skin: General: Skin is warm and dry. Capillary Refill: Capillary refill takes less than 2 seconds. Neurological: General: No focal deficit present. Mental Status: She is alert. Psychiatric: Mood and Affect: Mood is anxious and depressed. Affect is tearful. Discharge Disposition/Condition Disposition: Home Condition: Stable (s/sx potential problems absent or manageable) I spent >30 minutes of patient care and instruction time in preparation for this discharge. Fior Lerma MD Family & Community Medicine, PGY-1 Cosigned by Mary Sotelo MD at 01/25/2024 2:24 PM EST Associated attestation - Mary Sotelo MD - 01/25/2024 2:24 PM EST I saw and evaluated the patient with the resident/fellow. I discussed the case with the resident/fellow and agree with the findings and plan as documented. * Progress Notes - Dipika Zamora - 01/25/2024 1:16 PM EST Case Management Adult Initial Progress Note Rosibel Gayle 38 y.o. female CSN: [id number] Admission: 01/22/2024 3:07 PM Primary Problem: Epigastric pain Operator Receptionist reviewed chart and spoke with patient at bedside to complete this Initial Case Management Assessment. PCP: Lisa Foote APRN Emergency Contact: Extended Emergency Contact Information Primary Emergency Contact: Rosa MariaRositaAsiya seals Address: [address] [place] [address] of [facility] Mobile Relation: Mother Preferred language: Australian Row Boss needed? No Secondary Emergency Contact: AngieNapoleon hercules Mobile Relation: Significant Other Preferred language: Australian Row Boss needed? No Insurance: Primary Visit Coverage Payer Plan Sponsor Code Group Number Group Name [facility] MEDICAID [facility] MEDICAID [id number] Primary Visit Coverage Subscriber Subscriber ID Subscriber Name Subscriber SSN Subscriber Address [id number] ROSIBEL GAYLE [id number] [place] [address] Patient information: Primary Caregiver: Self Support System: Immediate family Daily Living Activities: Functional Status: Independent Living Arrangements: Children, Spouse/Significant other Type of Residence: Private residence, Single Level [address] [place] [address] Current DME: Equipment Currently Used at Home: none Income Information: Income Source: Unemployed Income/Expense Information: Income meets expenses Current Resources Utilized: None Housing Circumstances-Z Codes: Housing Circumstances (select all that apply): Low Income (101-300% Federal Poverty Guidlines) - Z596 Anticipated Discharge Date: TBD Patient's Discharge Goal: To discharge home Assistance Available at Discharge: Pt lives with her S/O who can provide some assistance Discharge Transport: S/O Follow Up Transport: Has trouble with transportation. Is aware of Medicaid transportation in her area. Home Health / Home Infusion / Outpatient Dialysis Services: Living Will/Advance Directive/Power of Concession Stand Attendant /Guardian: Have you reviewed your Advance Directive and is it valid for this stay?: Not applicable Advance Directive: Patient does not have advance directive Information Provided on Healthcare Directives: No Pre-existing DNR/DNI Order: No Patient Requests Assistance: No Additional Comments: Pt use the [facility] in [place] as her pharmacy. Dipika Zamora * Progress Notes - Fior Lerma MD - 01/25/2024 6:52 AM EST PROGRESS NOTE Date of Service: 01/25/2024 Attending Physician: Mary Sotelo MD Hospital Day: 4 Subjective Overnight team: one time dose of 0.25 mg dilaudid at midnight for ongoing pain and added benyl 10 mg qid Rosibel Gayle is a 38 y.o. female admitted for chronic intractable epigastric pain of unknown etiology. During examination 01/25/2024, patient states she is still in severe pain and the measures wehave taken so far are not improving her pain. She states she cried all day yesterday due to pain and is upset that no one was checking on her. Dr. Arceo saw her yesterday around noon but she is upset no one checked on her afterwards. She states the 10 mg of oxycodone she gets every 6 hours takes her pain from 10/10 to 8/10 but only lasts about 4 hours before increasing again. She states the only medication that helps is dilaudid. She also states she has increasing back pain due to bending forward over her pillow all night which strained her back. She states she has vomited 3- 4 times in the last day. She also describes eye pain due to crying. Her abdominal pain is persistent and feels like a bruise over the epigastric region with sharp and stabbing pain between the LUQ and epigastricregions. Objective Temp: [36.3 ??C (97.3 ??F)-36.9 ??C (98.4 ??F)] 36.6 ??C (97.8 ??F) Heart Rate: [59-78] 63 BP: (114-162)/(76-101) 115/77 Physical Exam Physical Exam Constitutional: General: She is in acute distress. Appearance: She is not ill-appearing. HENT: Head: Normocephalic and atraumatic. Right Ear: External ear normal. Left Ear: External ear normal. Nose: Nose normal. Mouth/Throat: Mouth: Mucous membranes are moist. Pharynx: Oropharynx is clear. Eyes: Extraocular Movements: Extraocular movements intact. Cardiovascular: Rate and Rhythm: Normal rate and regular rhythm. Pulmonary: Effort: Pulmonary effort is normal. No respiratory distress. Abdominal: General: There is no distension. Palpations: Abdomen is soft. Tenderness: There is abdominal tenderness in the epigastric area and left upper quadrant. There is no guarding. Negative signs include Carlson's sign. Musculoskeletal: Right lower leg: No edema. Left lower leg: No edema. Skin: General: Skin is warm and dry. Capillary Refill: Capillary refill takes less than 2 seconds. Neurological: General: No focal deficit present. Mental Status: She is alert. Psychiatric: Mood and Affect: Mood is anxious and depressed. Affect is tearful. Labs/Imaging: Labs in last 18 hours CBC WBC 4.86 Hb 11.2 Plt ?? Hct 35.8 ANC 2.15 BMP Na 137 Cl 101 BUN 4 (L) Glu 98 K 4.5 Co2 30 (H) Cr 0.67 Ca 8.8 (L) iCa ?? Mg 2.3, Phos 3.3 LFT AST 44 (H) AlkPhos 84 T Prot 6.3 ALK 42 (H) Bili 0.4 Alb ?? Assessment/Plan Rosibel Gayle is a 38 year old woman with PMH of chronic pancreatitis, PUD, depression, anxiety,fibromyalgia, cannabinoid hyperemesis, who presents to [facility] on 01/22/2024 with exacerbation of chronic epigastric pain and intractable N/V after increased alcohol intake. Patient established with outside PCP, but admitted to service due to exceeded census on IM service. #Relapsing Epigastric Pain with Intractable Nausea/Vomiting #Hx of Pancreatitis #Marijuana and Alcohol Use Patient continues to endorse severe 10/10 abdominal pain. Received one time dose of dilaudid 0.25 mg overnight. Plan: -Pain Medication Regimen Scheduled -Tylenol 1000 mg q6H -Lyrica 300 mg BID -oxycodone 10 mg q6H -Overnight 01/23 added bentyl 10 mg four times daily PRN -01/23 discontinued morphine 2 mg IV q3H -Carafate 1 g 4 times daily -zofran 4 mg IV or prn for nausea. -will continue with Full liquid diet and advance as tolerated -H pylori pending -UDS presumptive positive for oxycodone and cannabinoids. #Borderline transaminitis On am labs 01/24 very slight increase in AST and ALT. Plan: Continue to monitor. # Concern for EtOH Withdrawal: Last alcoholic beverage 01/19 (self-reported 3-4 alcoholic beverages). CIWA protocol initiated withp.r.n. Valium. Due to patient not requiring prns overnight CIWA protocol was discontinued on 01/23. 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 initiated # History of PUD: Continue with Protonix 40 mg daily # Obesity: Complicates all aspects of care F: PO E: Monitor and replace as necessary N: Regular GI: Continue on PPI DVT prophylaxis: pLOV Lines and Tubes: pIV CODE: Full Code PT/OT: No needs anticipated DISPO/Discharge Criteria: [ ] Clinical improvement Fior Lerma MD Family & Community Medicine, PGY-1 Cosigned by Mary Sotelo MD at 01/25/2024 1:58 PM EST Associated attestation - Mary Sotelo MD - 01/25/2024 1:58 PM EST I saw and evaluated the patient with the resident/fellow. I discussed the case with the resident/fellow and agree with the findings and plan as documented. * Care Plan - Micaela Reynaga RN - 01/25/2024 6:33 AM EST Problem: Adult Inpatient Plan of Care Goal: Plan of Care Review 01/25/2024 0633 by Micaela Reynaga RN Outcome: Ongoing, Progressing 01/25/2024 0632 by Micaela Reynaga RN Outcome: Ongoing, Progressing 01/25/2024 0632 by Micaela Reynaga RN Outcome: Ongoing, Progressing Problem: Adult Inpatient Plan of Care Goal: Optimal Comfort and Wellbeing 01/25/2024 0633 by Micaela Reynaga RN Outcome: Ongoing, Progressing Problem: Pain Acute Goal: Optimal Pain Control and Function Outcome: Ongoing, Progressing * Hospital Course - Fior Lerma MD - 01/24/2024 11:20 AM EST History of Presenting Illness: Rosibel Gayle is a 38 y.o.F w/ PMHx of Pancreatitis, PUD, and Anxiety, who presented to [facility] on 01/22/2024 with Epigastric pain and intractable N/V. Lab work and imaging at that time was overall remarkable. Patient was ultimately admitted to medicine team due to intractable nausea vomiting and inability to tolerate by mouth. Patient was started on pain regimen and continued on home medications. On 01/23/2024 family medicine team reached and agreed to transfer patient to service due to census/numbers on medicine team. This patient is not an FM patient and has outside PCP Lisa Foote APRN. On chart review it appears that patient has had longstanding abdominal pain which dates back to 2019. Appears that patient has had questionable chronic pancreatitis, history of cholecystitis and cholelithiasis status post cholecystectomy complicated by 2 no choledocholithiasis and ERCP in April 2020. Patient has had difficulty controlling her pain outpatient. Multiple ED visits and hospitalizations in the past due to uncontrolled pain, nausea, vomiting. Patient states that she was following with pain medicine and was planning on pain pump earlier in the year plan unfortunately suffered from miscarriage and was lost to follow up. ED Course: Patient was transfer from Hospital Medicine Problem Based Summaries: #Relapsing Epigastric Pain with Intractable Nausea/Vomiting #Hx of Pancreatitis #Marijuana and Alcohol Use Patient has longstanding history of chronic abdominal pain and intermittent bouts of nausea and vomiting. Has followed with GI in the past. Now status post cholecystectomy and ERCP in 2020. Upon thisadmission labs and imaging overall WNL. At this time low suspicion for acute versus chronic pancreatitis. Broad differential diagnosis including gastritis, gastric ulcer, PUD, gastroparesis, cyclic vomiting syndrome secondary to marijuana use. Previously had intended to follow up in pain managementclinic but due to suffering a miscarriage earlier this year missed appointment and was lost to follow up. Patient was continued on tylenol 1000 mg q6H, lyrica 300 mg BID and started on 7.5 mg oxycodone q6H for ongoing abdominal pain. Initially patient had morphine 2 mg IV q2H for breakthrough pain but was able to be weaned off on 01/23. On 01/23 increased oxycodone to 10 mg q6H due to ongoing pain.Overnight 01/23 to 01/24 patient given one dose of dilaudid 0.25 mg for breakthrough pain and 10 mg bentyl 4 times daily was added. Patient was on zofran 4 mg IV or oral prn nausea. Initially patient was started on full liquid diet but was able to resume regular diet on day of discharge, 01/24. On dayof discharge we contacted [facility] in [place], [place], to schedule patient for appointment. Patient was scheduled for follow up in pain management clinic on 02/02 at 1 pm. Patient expressed u nderstanding of this appointment. Patient was discharged with carafate, oxycodone 10 mg q6H for total of 10 day supply and narcan, lidocaine patches, bentyl, amitriptyline. She will plan to follow upin pain management clinic. #Borderline transaminitis On am labs 01/24 very slight increase in AST and ALT. Continue to monitor outpatient. # Concern for EtOH Withdrawal: Last alcoholic beverage 01/19 (self-reported 3-4 alcoholic beverages). CIWA protocol initiated withp.r.n. Valium. Due to patient not requiring prns overnight CIWA protocol was discontinued on 01/23. POA UDS presumptive positive for cannabinoids, benzodiazepines, and oxycodone. 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 initiated. Discontinued on discharge. # History of PUD: Continue with Protonix 40 mg daily # Obesity: Complicates all aspects of care New Medications: Amitriptyline 25 mg nightly for pain and mood, bentyl 10 mg qid for pain, lidocaine patches for low back pain, naloxone, oxycodone 10 mg q6H for 10 day supply, sucralfate. Discontinued Medications: None Medication Modifications: None TCM Follow-up: Issues to discuss at follow up visit: - Symptoms? Ongoing abdominal pain, lumbar back pain, nausea and vomiting - Meds? Assess need for refills. - Referrals? None anticipated. - Labs? Consider CMP to evaluate for borderline mild transaminitis seen during admission. Outside Specialities & Follow-up Appointments: Follow-up: PCP No future appointments. Follow up in [facility] pain management clinic in [place] Visit Vitals BP 114/76 Pulse 73 Temp 36.9 ??C (98.4 ??F) Resp 16 SpO2 99% OB Status Having periods Smoking Status Every Day * Progress Notes - Fior Lerma MD - 01/24/2024 10:50 AM EST PROGRESS NOTE Date of Service: 01/24/2024 Attending Physician: Mary Sotelo MD Hospital Day: 3 Subjective Overnight team: Reported no acute events. Rosibel Gayle is a 38 y.o. female admitted for chronic intractable epigastric pain of unknown etiology. During examination 01/24/2024, patient states that she has continued to be in a significant amount of pain that has not been relieved by current management. She states she was on oxycodone for 2 years previously but had been taken off all opioids. She states typically pain is 10/10 but has been down to a 7/10 on current pain regimen of oxycodone 7.5 q6H and morphine 2 mg q3H. Pain at this time is 9/10. She vomited twice overnight. States sometimes morphine works and sometimes it doesn't and when it doesn't dilaudid helps. She states typically when admitted she will be on oxycodone 10 mgfor a few days with morphine and dilaudid prns and after a few days they wean her off IV pain medica tions to orals and discharge afterwards. She is tearful and anxious on exam this morning. We discussed that we would start weaning the IV med Prns with plan to increase oral pain medication as neededfor optimized pain control. Objective Temp: [36.6 ??C (97.8 ??F)-37.1 ??C (98.7 ??F)] 36.7 ??C (98 ??F) Heart Rate: [59-85] 74 Resp: [16-17] 16 BP: (115-151)/(76-97) 135/77 Physical Exam Constitutional: General: She is in acute distress. Appearance: She is not ill-appearing. HENT: Head: Normocephalic and atraumatic. Right Ear: External ear normal. Left Ear: External ear normal. Nose: Nose normal. Mouth/Throat: Mouth: Mucous membranes are moist. Pharynx: Oropharynx is clear. Eyes: Extraocular Movements: Extraocular movements intact. Cardiovascular: Rate and Rhythm: Normal rate and regular rhythm. Pulmonary: Effort: Pulmonary effort is normal. No respiratory distress. Abdominal: General: There is no distension. Palpations: Abdomen is soft. Tenderness: There is abdominal tenderness in the epigastric area and left upper quadrant. There is no guarding. Negative signs include Carlson's sign. Musculoskeletal: Right lower leg: No edema. Left lower leg: No edema. Skin: General: Skin is warm and dry. Capillary Refill: Capillary refill takes less than 2 seconds. Neurological: General: No focal deficit present. Mental Status: She is alert. Psychiatric: Mood and Affect: Mood is anxious and depressed. Affect is tearful. Labs/Imaging: None Assessment/Plan Rosibel Sheyla [place] is a 38 year old woman with PMH of chronic pancreatitis, PUD, depression, anxiety,fibromyalgia, cannabinoid hyperemesis, who presents to [facility] on 01/22/2024 with exacerbation of chronic epigastric pain and intractable N/V after increased alcohol intake. Patient established with outside PCP, but admitted to service due to exceeded census on IM service. #Relapsing Epigastric Pain with Intractable Nausea/Vomiting #Hx of Pancreatitis #Marijuana and Alcohol Use Patient has longstanding history of chronic abdominal pain and intermittent bouts of nausea and vomiting. Has followed with GI in the past. Now status post cholecystectomy and ERCP in 2020. Upon thisadmission labs and imaging overall WNL. At this time low suspicion for acute versus chronic pancreatitis. Broad differential diagnosis including gastritis, gastric ulcer, PUD, gastroparesis, cyclic vomiting syndrome secondary to marijuana use. Previously had intended to follow up in pain managementclinic but missed appointment and was lost to follow up. Plan: -Pain Medication Regimen Scheduled -Tylenol 1000 mg q6H -Lyrica 300 mg BID -01/23 Increased oxycodone to from 7.5 mg to 10 mg q6H scheduled PRN -01/23 discontinued morphine 2 mg IV q3H -zofran 4 mg IV or prn for nausea. -will continue with Full liquid diet and advance as tolerated -H pylori pending. -UDS presumptive positive for oxycodone and cannabinoids. # Concern for EtOH Withdrawal: Last alcoholic beverage 01/19 (self-reported 3-4 alcoholic beverages). CIWA protocol initiated withp.r.n. Valium. Due to patient not requiring prns overnight CIWA protocol was discontinued on 01/23. 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 initiated # History of PUD: Continue with Protonix 40 mg daily # Obesity: Complicates all aspects of care F: PO E: Monitor and replace as necessary N: Regular GI: Continue on PPI DVT prophylaxis: pLOV Lines and Tubes: pIV CODE: Full Code PT/OT: No needs anticipated DISPO/Discharge Criteria: [ ] Clinical improvement Fior Lerma MD Family & Community Medicine, PGY-1 Cosigned by Mary Sotelo MD at 01/24/2024 9:26 PM EST Associated attestation - Mary Sotelo MD - 01/24/2024 9:26 PM EST I saw and evaluated the patient with the resident/fellow. I discussed the case with the resident/fellow and agree with the findings and plan as documented. * Clinician Note - Manjit Paige MD - 01/23/2024 6:53 PM EST Evaluated by FM resident at 630 p.m. due to ongoing abdominal pain exacerbated by heavy meal. Patient endorses continued moderate abdominal pain and is requesting dose of IV pain medication. Patient currently on: Oxycodone 7.5 mg q.6 hours scheduled Morphine 2 mg Q 3 hours for breakthrough pain Zofran 4 mg q.6 hours p.r.n. for nausea Had long discussion regarding treatment options. We will proceed with GI cocktail, scheduled Tylenol at this time. We will also add on Carafate and amitriptyline to help with possible functional abdominal pain. Reiterated lack of evidence for opioids for functional abdominal pain. We will reduce diet to full liquid as patient unable to tolerate large amounts of solid food. Regarding imaging, consider getting CT non-con of abdomen and pelvis to evaluate abdominal pain further. On chart review patient has extensive history of overall normal appearing scans including multiple CT scans, MRCP, x-rays. Most recent EGD February, normal. KUB in ED yesterday demonstrated nonobstructive bowel gas pattern and was overall within normal limits. Ultimately decided against imaging at this time. If abdominal pain increases in severity can consider CT scan. * Progress Notes - Manjit Paige MD - 01/23/2024 10:59 AM EST Images from the original note were not included. Family Medicine Progress Note Patient: Rosibel Gayle Admit Date: 01/22/2024 Rosibel Gayle is a 38 y.o.F w/ PMHx of Pancreatitis, PUD, and Anxiety, who presents to [facility] on 01/22/2024 with Epigastric pain and intractable N/V. Lab work and imaging at that time was overall remarkable. Patient was ultimately admitted to medicine team due to intractable nausea vomitingand inability to tolerate by mouth. Patient was started on pain regimen and continued on home medications. On 01/23/2024 family medicine team reached and agreed to transfer patient to service due to census/numbers on medicine team. This patient is not an FM patient and has outside PCP Lisa Foote APRN. On chart review it appears that patient has had longstanding abdominal pain which dates back to 2019. Appears that patient has had questionable chronic pancreatitis, history of cholecystitis and cholelithiasis status post cholecystectomy complicated by 2 no choledocholithiasis and ERCP in April 2020. Patient has had difficulty controlling her pain outpatient. Multiple ED visits and hospitalizations in the past due to uncontrolled pain, nausea, vomiting. Patient states that she was following with pain medicine and was planning on pain pump earlier in the year plan unfortunately suffered from miscarriage and was lost to follow up. Subjective On visitation today patient in acute distress secondary to abdominal pain. Patient states her pain is a ???10/10 ???and is centered primarily in her epigastric/left upper quadrant area. Patient was overall nauseous and has had intermittent vomiting spells without bloody or bilious vomitus. Overall normal bowel movements. Denies issues with urination, chest pain, shortness for breath, fevers, chills. Regarding substance use, patient will occasionally use marijuana given over dispensaries and will partake in alcohol consumption with last known drink -27 (3-4 alcoholic beverages). Review of Systems Constitutional: Positive for activity change. Negative for chills and diaphoresis. HENT: Negative for congestion, sinus pressure, sneezing, sore throat and trouble swallowing. Eyes: Negative for visual disturbance. Respiratory: Negative for chest tightness, shortness of breath and wheezing. Cardiovascular: Negative for chest pain. Gastrointestinal: Positive for abdominal distention, abdominal pain, nausea and vomiting. Negative for constipation, diarrhea and rectal pain. Genitourinary: Negative for difficulty urinating. Musculoskeletal: Positive for back pain. Negative for neck pain. Neurological: Negative for dizziness, weakness, numbness and headaches. Psychiatric/Behavioral: Negative for suicidal ideas. The patient is nervous/anxious. Problem List Principal Problem: Epigastric pain Medications acetaminophen, 1,000 mg, Oral, q6h INO folic acid, 1 mg, Oral, Daily HYDROmorphone, 1 mg, Intravenous, Once pantoprazole, 40 mg, Oral, Daily polyethylene glycol, 17 g, Oral, Daily pregabalin, 300 mg, Oral, BID senna, 2 tablet, Oral, Nightly sodium chloride, 10 mL, Intravenous, q12h [START ON 01/25/2024] thiamine, 100 mg, Oral, Daily thiamine, 200 mg, Oral, q8h PRN medications: diazePAM OR diazePAM OR diazePAM OR diazePAM OR diazePAM, hydrOXYzine pamoate, melatonin, ondansetron ODT OR ondansetron OR ondansetron, oxyCODONE, [COMPLETED] Insert peripheral IV AND [COMPLETED] Saline lock IV AND sodium chloride AND sodium chloride Objective Visit Vitals BP (!) 151/97 Pulse 59 Temp 37.1 ??C (98.7 ??F) Resp 17 SpO2 99% OB Status Having periods Smoking Status Every Day Temp: [36.3 ??C (97.4 ??F)-37.1 ??C (98.7 ??F)] 37.1 ??C (98.7 ??F) Heart Rate: [59-99] 59 Resp: [17-22] 17 BP: (119-169)/(78-99) 151/97 Physical Exam Physical Exam Vitals and nursing note reviewed. Constitutional: General: She is in acute distress. Appearance: Normal appearance. She is obese. HENT: Head: Normocephalic and atraumatic. Right Ear: External ear normal. Left Ear: External ear normal. Eyes: Extraocular Movements: Extraocular movements intact. Pupils: Pupils are equal, round, and reactive to light. Cardiovascular: Rate and Rhythm: Normal rate. Pulses: Normal pulses. Pulmonary: Effort: Pulmonary effort is normal. No respiratory distress. Breath sounds: Normal breath sounds. Abdominal: General: Abdomen is flat. Bowel sounds are normal. There is no distension. Comments: Epigastric and left upper quadrant pain on palpation Slight tenderness to right CVA area Musculoskeletal: General: No swelling or tenderness. Normal range of motion. Skin: General: Skin is warm. Capillary Refill: Capillary refill takes less than 2 seconds. Neurological: General: No focal deficit present. Mental Status: She is alert and oriented to person, place, and time. Psychiatric: Mood and Affect: Mood normal. Behavior: Behavior normal. Comments: Tearful on exam Laboratory Heme: Lab Results Component Value Date WBC 6.98 01/22/2024 RBC 4.48 01/22/2024 HGB 11.5 01/22/2024 HCT 36.0 01/22/2024 PLT 265 01/22/2024 MCV 80 01/22/2024 MCH 25.7 (L) 01/22/2024 MCHC 31.9 01/22/2024 RDW 15.9 (H) 01/22/2024 NRBC 0.0 01/22/2024 Lab Results Component Value Date WBC 6.98 01/22/2024 Coagulation: No results found for: INR , PT , PTT , CLFGN Renal: Lab Results Component Value Date NA 139 01/22/2024 K 4.0 01/22/2024 CL 104 01/22/2024 CO2 25 01/22/2024 BUN 8 01/22/2024 CREATININE 0.59 (L) 01/22/2024 GLUCOSE 88 01/22/2024 CALCIUM 8.7 (L) 01/22/2024 MG 2.0 01/22/2024 PHOS 2.5 01/22/2024 Liver: Lab Results Component Value Date AST 14 01/22/2024 ALT 10 01/22/2024 BILITOT 0.3 01/22/2024 Glucose: No results found for: PGLU Lab Results Component Value Date HGBA1C 5.1 01/22/2024 Microbiology Results Procedure Component Value Units Date/Time Nasopharyngeal Respiratory Panel [[id number]] (Normal) Collected: 01/22/242049 Order Status: Completed Specimen: Swab from Nasopharynx Updated: 01/22/242258 Nasopharyngeal Respiratory PCR Interpretation Not Detected for all analytes Narrative: This assay can detect Adenovirus, Coronavirus, Human Metapneumovirus, Human Rhino/Enterovirus, Influenza A, Influenza A H1, Influenza A H1 2009, Influenza A H3, Influenza B, Parainfluenza Virus 1, Parainfluenza Virus 2, Parainfluenza Virus 3, Parainfluenza Virus 4, Respiratory Syncytial Virus A, Respiratory Syncytial Virus B, Chlamydia pneumoniae, and Mycoplasma pneumoniae. Note: This assay does NOT detect SARS/CoV, novel Coronavirus 2019-nCoV, Bordetella pertussis or Bordetella parapertussis. Nasopharyngeal Respiratory PCR Panel is performed using the [employer] instrument. This test is FDA approved for use with Nasopharyngeal swabs only. This test is used for clinical purposes. It should not be regarded as investigational or for research. The [facility] Clinical [facility] Laboratory is certified under the Clinical Laboratory Improvement Amendments of 1988 (CLIA-88) as qualified to perform high complexity clinical laboratory testing. Helicobacter pylori Antigen [[id number]] Order Status: Sent Specimen: Stool from Rectum SARS CoV-2/COVID-19 by PCR - Rapid [[id number]] (Normal) Collected: 01/22/242049 Order Status: Completed Specimen: Swab from Nasopharynx Updated: 01/22/242152 SARS CoV-2/COVID-19 RNA PCR Result Not Detected Narrative: This test is FDA approved for use with nasopharyngeal specimens in Viral Transport Media (VTM). This test is used for clinical purposes. It should not be regarded as investigational or for research. This laboratory is certified under the Clinical Laboratory improvement Amendments of 1988 (CLIA-88 as qualified to perform high complexity clinical laboratory testing. This test was performed on the Xpert [employer] Here SARS CoV-2 Plus assay test, a PCR- based method. Negative results should be considered presumptive and do not preclude current or future infection obtained through community transmission or other exposures. Negative results must be considered in the context of an individual's recent exposures, history, presence of clinical signs and symptoms consistent with COVID-19. Imaging XR Abdomen 1 View Result Date: 01/23/2024 Nonobstructive bowel gas pattern. No pneumoperitoneum. CRITICAL RESULT: No. COMMUNICATION: Per thiswritten report. Drafted by Kellie Jerome MD on 01/23/2024 8:18 AM Final report signed by Kellie Jerome MD on 01/23/2024 8:19 AM Assessment & Plan Rosibel Gayle is a 38 y.o.F w/ PMHx of Pancreatitis, PUD, and Anxiety, who presents to [facility] on 01/22/2024 with Epigastric pain and intractable N/V. #Relapsing Epigastric Pain with Intractable Nausea/Vomiting #Hx of Pancreatitis #Marijuana and Alcohol Use - longstanding history of chronic abdominal pain and intermittent bouts of nausea and vomiting - has followed with GI in the past - status post cholecystectomy and ERCP in 2020 - upon this admission labs and imaging overall WNL - at this time low suspicion for acute versus chronic pancreatitis. Broad differential diagnosis including gastritis, gastric ulcer, PUD, gastroparesis, cyclic vomiting syndrome secondary to marijuana use PLAN: - admit to family Medicine team to acute floor under Dr. Sotelo for pain control - continue with pain/nausea regimen including: Oxycodone 5 mg q.6 hours scheduled Morphine 2 mg Q 4 hours p.r.n. for breakthrough pain Zofran 4 mg IV and by mouth p.r.n. for nausea - will continue with clear liquid diet and advance as tolerable -H pylori and UDS pending # Concern for EtOH Withdrawal: - last alcoholic beverage 01-19 (self-reported 3-4 alcoholic beverages) - CIWA protocol initiated with p.r.n. Valium Plan: - low suspicion for alcohol withdrawal or DT - if low CIWA overnight and no p.r.n. 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 initiated # History of PUD: Continue with Protonix 40 mg daily # Obesity: Complicates all aspects of care F: PO E: Monitor and replace as necessary N: Regular GI: Continue on PPI DVT prophylaxis: pLOV Lines and Tubes: pIV CODE: Full Code PT/OT: No needs anticipated DISPO/Discharge Criteria: [ ] Clinical improvement Patient seen and staffed with Dr. Deepak Paige MD PGY-3, Family and Community Medicine Cosigned by Mary Sotelo MD at 01/24/2024 9:23 PM EST Associated attestation - Mary Sotelo MD - 01/24/2024 9:23 PM EST I saw and evaluated the patient with the resident/fellow. I discussed the case with the resident/fellow and agree with the findings and plan as documented. * H&P - Ambika Palumbo PA - 01/22/2024 8:04 PM ESTAssociated Order(s): Consult to [facility] Images from the original note were not included. Consult to [facility] Consult performed by: Ambika Palumbo PA Consult ordered by: Nas Reynaga MD Reason for consult: Admission HOSPITAL MEDICINE HISTORY AND PHYSICAL( 01/22/24 ) History of Present Illness Rosibel Gayle is a 38 y.o.F w/ PMHx of Pancreatitis, PUD, and Anxiety, who presents to [facility] on 01/22/2024 with Epigastric pain and intractable N/V. In 2022, the patient presented to the ED >40 times. So far this year has presented to the ED >50 times. Has lost GI follow up d/t losing drivers license. Previously followed with GI in 2020 where differential for epigastric pain was functional abdominal pain, IBS-C, cyclic vomiting and acute on chronic pancreatitis. Workup as detailed, suggest that chronic pancreatitis may not be drivingetiology. - (12/04/2020) ERCP: Some foci and strands in the pancreatic parenchyma, but no other signs of chronic pancreatitis. Did have - (10/27/2023) MRCP: Normal pancreas wo acute/chronic inflammatory changes - (12/16/2023) CTAP w contrast: Liver, spleen, pancreas, and adrenal glands have an unremarkable appearance. No CT evidence of acute or chronic pancreatitis She reports on 01/19 going to a bar and having 3-4 shots followed with beer and the subsequent day developing intractable N/V and unable to tolerate PO intake. She denies any hematemesis/melena, fevers/chills, any sick contacts, or other symptoms of concern. Reports having daily bulk caliber stools. She denies that her pain is associated with PO intake (either aggravated/alleviated). Without improvement of her symptoms, she reported to [facility] ED for further eval. On arrival, was found to be HDS, afebrile, and SIRS negative. Had mild epigastric tenderness on exam, but was tearful and reporting sharp waxing/waning epigastric pain radiating to her back at rest. Initial labs unremarkable. Case was discussed with and decision was made to admit for intractableN/V and uncontrolled epigastric pain refractory to several rounds of IV analgesia in the ED. Past Medical History Past Medical History: Diagnosis Date Anxiety Arthritis Depression Fibromyalgia Gastric erosions 04/19/2021 GERD (gastroesophageal reflux disease) Hypertension Intentional overdose ([facility]) 12/20/2021 Nicotine dependence Obesity Pancreatitis Immunization History Administered Date(s) Administered Influenza, injectable, quadrivalent, preservative free 11/21/2019, 12/27/2020, 01/20/2022, 02/05/2023 Moderna COVID-19 Vaccine ([place]) 12+ years 06/11/2020, 07/05/2020 Pfizer-BioNTech COVID-19 Vaccine ([place]) 12+ 02/10/2021 Tdap 06/25/2021 Allergies Allergies Allergen Reactions Compazine [Prochlorperazine] Other - please document in the comment field Dystonic rxn treated w/ diphenhydramine Droperidol Other - please document in the comment field Experienced an acute dystonic reaction treated with diphenhydramine Tramadol Rash, Other - please document in the comment field and Dizziness Hypertension Patient described previously experiencing panic attacks too. Surgical History Past Surgical History: Procedure Laterality Date CHOLECYSTECTOMY DILATION AND CURETTAGE OF UTERUS ERCP ESOPHAGOGASTRODUODENOSCOPY HAND SURGERY Right ORAL SURGERY Family History Family History Problem Relation Name Age of Onset Hypertension Mother Coronary artery disease Father Lung cancer Maternal Grandmother Coronary artery disease Maternal Grandfather Coronary artery disease Paternal Grandfather Colon cancer Other Social History Social History Socioeconomic History Marital status: Significant Other Spouse name: Not on file Number of children: Not on file Years of education: Not on file Highest education level: Not on file Occupational History Not on file Tobacco Use Smoking status: Every Day Current packs/day: 0.50 Average packs/day: 0.5 packs/day for 20.0 years (10.0 ttl pk-yrs) Types: Cigarettes Smokeless tobacco: Never Vaping Use Vaping status: Never Used Substance and Sexual Activity Alcohol use: Yes Comment: was drinking heavily x 7yrs up to a few months ago; no ETOH in a few monthhs Drug use: Yes Types: Marijuana Comment: a few times a month Sexual activity: Yes Other Topics Concern Occupational Exposure No Social History Narrative Not on file Social Drivers of Health Financial Resource Strain: Not on file Food Insecurity: No Food Insecurity (10/27/2023) Hunger Vital Sign Worried About Running Out of Food in the Last Year: Never true Ran Out of Food in the Last Year: Never true Transportation Needs: No Transportation Needs (10/27/2023) PRAPARE - Transportation Lack of Transportation (Medical): No Lack of Transportation (Non-Medical): No Physical Activity: Not on file Stress: Not on file Social Connections: Low Risk (03/13/2023) Received from [facility]™, [facility] Family and Community Support Help with Day to Day Activities: Not on file Feeling Lonely or Isolated: Not on file Intimate Partner Violence: Not At Risk (10/27/2023) Humiliation, Afraid, Rape, and Kick questionnaire Fear of Current or Ex-Partner: No Emotionally Abused: No Physically Abused: No Sexually Abused: No Housing Stability: Unknown (10/27/2023) Housing Stability Vital Sign Unable to Pay for Housing in the Last Year: No Number of Places Lived in the Last Year: Not on file Unstable Housing in the Last Year: No Objective Physical Exam Constitutional: General: She is not in acute distress. Appearance: She is obese. She is not toxic-appearing or diaphoretic. HENT: Head: Normocephalic and atraumatic. Mouth/Throat: Mouth: Mucous membranes are moist. Eyes: General: No scleral icterus. Cardiovascular: Rate and Rhythm: Normal rate and regular rhythm. Pulmonary: Breath sounds: Normal breath sounds. Abdominal: General: Abdomen is flat. There is no distension. Palpations: Abdomen is soft. Tenderness: There is abdominal tenderness (Mild on deep palpation) in the epigastric area and left upper quadrant. There is no right CVA tenderness, left CVA tenderness or guarding. Musculoskeletal: General: No tenderness. Right lower leg: No edema. Left lower leg: No edema. Lymphadenopathy: Cervical: No cervical adenopathy. Skin: General: Skin is warm and dry. Capillary Refill: Capillary refill takes less than 2 seconds. Neurological: General: No focal deficit present. Mental Status: She is alert and oriented to person, place, and time. Psychiatric: Mood and Affect: Mood is anxious. Affect is tearful. Last Recorded Vitals Vitals: 01/22/24 1354 01/22/24 1740 01/22/24 2126 BP: (!) 169/98 (!) 145/96 (!) 160/89 BP Location: Right arm Right arm Right arm Patient Position: Sitting Sitting Sitting Pulse: 86 73 99 Resp: 22 20 20 Temp: 36.7 ??C (98 ??F) 36.6 ??C (97.9 ??F) 36.7 ??C (98 ??F) TempSrc: Oral Oral Oral SpO2: 99% 97% 97% No intake or output data in the 24 hours ending 01/22/24 2205 Admission weight: Labs (Past 18Hrs) CBC WBC 6.98 Hb 11.5 Plt 265 Hct 36.0 ANC ?? COAGS INR ??, PTT ??, Anti-Xa ?? Encounter Date: 01/22/24 ECG Adult Result Value EKG DIAGNOSIS CLASS Borderline Normal Ventricular Rate 53 Atrial Rate 53 NH Interval 112 QRSD Interval 96 QT Interval 450 QTC Interval 422 P Boron 33 R Boron 20 T Wave Boron 22 Diagnosis Sinus bradycardia with sinus arrhythmia Diagnosis Otherwise normal ECG *Note: Due to a large number of results and/or encounters for the requested time period, some results have not been displayed. A complete set of results can be found in Results Review. BMP Na 139 Cl 104 BUN 8 Glu 88 K 4.0 Co2 25 Cr 0.59 (L) Ca 8.7 (L) iCa ?? Mg 2.0, Phos 2.5 Lactate ?? LFT AST 14 ALP 79 T Prot 6.5 ALT 10 Bili 0.3 Alb ?? D.Bili ?? Results No results found for the last 336 hours. Assessment & Plan Principal Problem: Epigastric pain Rosibel Gayle is a 38 y.o.F w/ PMHx of Pancreatitis, PUD, and Anxiety, who presents to [facility] on 01/22/[facility]24 with Epigastric pain and intractable N/V. Problems #Relapsing Epigastric Pain with Intractable Nausea/Vomiting #Hx of Pancreatitis #Marijuana and Alcohol Use - (11/21/2020) GI appointment: Differential for chronic abdominal pain at this point would include but is not limited to functional abdominal pain, IBS-C, cyclic vomiting and acute on chronic pancreatitis. - (12/04/2020) ERCP: Some foci and strands in the pancreatic parenchyma, but no other signs of chronic pancreatitis - (10/27/2023) MRCP: Normal pancreas wo acute/chronic inflammatory changes - (12/16/2023) CTAP w contrast: Liver, spleen, pancreas, and adrenal glands have an unremarkable appearance. No CT evidence of acute or chronic pancreatitis - Hx: Alcohol intake 3d ago with development of epigastric pain, N/V x 2d. Repots daily normal bulkbowel movements - Vitals: HDS, afebrile, no SIRS - WBC 6.98, Lipase/CRP/Procal/Lactate normal - A1c 5.1 PLAN: > CLD > 1L LR and encourage PO hydration > Tylenol 1g q6 INO+ Home Lyrica + Oxycodone 5mg q6 PRN > Zofran 4mg q6 PRN - EKG reviewed: Sinus bradycardia, normal axis, no acute ischemic changes, pr 112, qtc 422 > UDS pending - reports MJ use, which could be contributing to symptoms. Denies any other recreational drug use. > Reports only drinking occasionally (last drink 01/19. 4+ shots and beer). No active symptoms of withdrawal on exam. Will initiate CIWA out of abundance of caution > In 2022, the patient presented to the ED >40 times. So far this year has presented to the ED >50 times. Has lost GI follow up d/t losing drivers license, but would be interested in following with [facility] again (previously followed with them in 2020). There is concern for developing opioid dependence and potentially seeking behavior. May benefit from ACES eval > With Hx of PUD, will send for H. 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 Can discuss SSRI initiation prior to discharge. Is willing for outpatient psych referral #Hx of PUD > Continue home PPI #Obesity - BMI 34.78 - complicates all aspects of care Medications Scheduled: [START ON 01/23/2024] acetaminophen, 1,000 mg, Oral, q6h INO lactated Ringer's, 1,000 mL, Intravenous, Once pantoprazole, 40 mg, Oral, Daily polyethylene glycol, 17 g, Oral, Daily pregabalin, 300 mg, Oral, BID senna, 2 tablet, Oral, Nightly sodium chloride, 10 mL, Intravenous, q12h Continuous: As needed: hydrOXYzine pamoate, 25 mg, q6h PRN melatonin, 3 mg, Nightly PRN ondansetron ODT, 4 mg, q6h PRN Or ondansetron, 4 mg, q6h PRN Or ondansetron, 4 mg, q6h PRN oxyCODONE, 5 mg, q6h PRN sodium chloride, 10 mL, PRN Barriers to Discharge Tolerating PO intake Diet Adult diet Diet texture: Clear liquid DVT prophylaxis This patient does not have an active medication from one of the medication groupers. Anticipated discharge to Home Follow up No future appointments. Mobility status Mobility Protocol: General - Mobility Guidelines Extremity Precautions: No Extremity Precautions Other mobility precautions: No other precautions required Code status Full Code Family contact Extended Emergency Contact Information Primary Emergency Contact: Asiya Flores Address: [address] [place] [address] [place] Relation: Mother Preferred language: Australian Row Boss needed? No Secondary Emergency Contact: AngelinanickNapoleon Mobile Relation: Significant Other Preferred language: Australian Row Boss needed? No Ambika Palumbo PA-C Department of Hospital Medicine Pager: [phone] 01/22/2024 * ED Provider Notes - Flory Squires MD - 01/22/2024 1:52 PM EST Images from the original note were not included. - HPI Chief Complaint Patient presents with Abdominal Pain n Nausea Vomiting PIT Note Rosibel Gayle is a 38 y.o. female who presents to ED with abdominal pain and vomiting. Pt reports h/o pancreatitis and suspects she is having a flare. Pt c/o worsening upper abdominal pain that radiates to her back since onset Thursday. She also c/o nausea and vomiting since onset yesterday. She denies irregular bowel movements, fevers, and chills. Pt reports she has had relief with morphine or dilaudid along with Zofran or promethazine suppositories in the past. Patient denies any other medical complaints at this time. I, Flory Squires MD have read the above note and agree. I obtained the following history. This is a 38-year-old female with a history of chronic pancreatitis who presents with acute onset abdominal pain for the last 2 days. States she was also been having profuse nausea and vomiting with inability to tolerate oral intake. Denies any hematemesis. Denies any fevers. Patient states this feels like her typical pancreatitis flare. Patient History Past Medical History: Diagnosis Date Anxiety Arthritis Depression Fibromyalgia Gastric erosions 04/19/2021 GERD (gastroesophageal reflux disease) Hypertension Intentional overdose ([facility]) 12/20/2021 Nicotine dependence Obesity Pancreatitis Past Surgical [...] attacks too. Physical Exam ED Triage Vitals [01/22/24 1354] Temp Heart Rate Resp BP 36.7 ??C (98 ??F) 86 22 (!) 169/98 SpO2 Temp Source Heart Rate Source Patient Position 99 % Oral -- Sitting BP Location FiO2 (%) Right arm -- Physical Exam Vitals and nursing note reviewed. Constitutional: General: She is not in acute distress. Appearance: She is well-developed. HENT: Head: Normocephalic and atraumatic. Comments: No facial swelling Mouth/Throat: Mouth: Mucous membranes are moist. Pharynx: Oropharynx is clear. Eyes: General: No scleral icterus. Conjunctiva/sclera: Conjunctivae normal. Cardiovascular: Rate and Rhythm: Normal rate and regular rhythm. Heart sounds: No murmur heard. Pulmonary: Effort: Pulmonary effort is normal. No respiratory distress. Breath sounds: Normal breath sounds and air entry. Comments: Speaking full sentences. Symmetric chest rise Abdominal: General: There is no distension. Palpations: Abdomen is soft. Tenderness: There is abdominal tenderness in the epigastric area and left upper quadrant. There is no guarding or rebound. Musculoskeletal: General: No swelling or deformity. Normal range of motion. Cervical back: Normal range of motion and neck supple. Comments: Atraumatic, moves all extremities spontaneously Skin: General: Skin is warm and dry. Capillary Refill: Capillary refill takes less than 2 seconds. Neurological: Mental Status: She is alert. Mental status is at baseline. Comments: Awake Psychiatric: Mood and Affect: Mood normal. Behavior: Behavior normal. No data recorded ED Course & MDM PIT Date/Time: 01/18/2024 1447 Scribe Attestation: This note was dictated to me, Mehnaz Grimes, acting as a scribe for Dr. Mireya Lindsay. Attending Attestation: The documentation was recorded by Mehnaz Grimes acting as scribe in my presence at the time of the encounter and accurately reflects the service I personally performed. Assessment: 38 y.o. female presents to ED with complaint of abdominal pain. It should be noted that the chronicconditions includes chronic pancreatitis, which currently is not at goal therapy. This complicates the clinical picture because it Comorbidities: complicates the clinical workup Differential Diagnosis: Acute on chronic pancreatitis, UTI, bowel perforation In order to fully explore the differential diagnosis the following treatments and tests were ordered: ED Medication Administration from 01/22/2024 1351 to 01/22/20242144 Date/Time Order Dose Route Action 01/22/2024 1531 EST morphine PF 4 mg 4 mg Intravenous Given 01/22/2024 1531 EST ondansetron (Zofran) injection 4 mg 4 mg Intravenous Given 01/22/2024 1619 EST morphine PF 4 mg 4 mg Intravenous Given 01/22/2024 1709 EST ondansetron (Zofran) injection 4 mg 4 mg Intravenous Given 01/22/2024 1710 EST HYDROmorphone (Dilaudid) injection 1 mg 1 mg Intravenous Given 01/22/2024 1948 EST HYDROmorphone (Dilaudid) injection 1 mg 1 mg Intravenous Given All Other Orders Ordered Status Ordering Provider 01/22/242144 Ambulate patient 2 times daily Comments: Ambulate twice daily with assistance Acknowledged AMBIKA PALUMBO 01/22/242144 Up in chair 3 times daily Acknowledged AMBIKA PALUMBO 01/22/242144 Vital Signs Every 6 hours Placed in And Linked Group Acknowledged AMBIKA PALUMBO 01/22/242144 Pulse Oximetry Every 6 hours Placed in And Linked Group Acknowledged AMBIKA PALUMBO 01/22/242144 Intake and output Every 6 hours Acknowledged AMBIKA PALUMBO 01/22/242144 Sequential compression device Until discontinued Comments: SCDs must be in place and turned on EXCEPT when ACTIVELY ambulating. Acknowledged AMBIKA PALUMBO 01/22/242144 Okay To Give Nicotine Replacement Until discontinued Acknowledged AMBIKA PALUMBO 01/22/242144 ECG Adult Once Preliminary result AMBIKA PALUMBO 01/22/242144 Full code Continuous Acknowledged ROXI PALUMBOER A 01/22/242144 Adult diet Diet texture: Clear liquid Diet effective now Acknowledged PALUMBO AMBIKA A 01/22/242144 Mobility Orders Until discontinued Acknowledged PALUMBO AMBIKA A 01/22/242144 Notify physician (specify parameters) Until discontinued Acknowledged PALUMBOROIX LORENZER A 01/22/242144 Insert peripheral IV Once Placed in And Linked Group Completed LINWOOD AMBIKA A 01/22/242144 Saline lock IV Once Placed in And Linked Group Completed PALUMBO AMBIKA A 01/22/242144 Admit to inpatient Once Completed PALUMBOROXI LORENZER A 01/22/242111 Drug Abuse Screen Urine Once Acknowledged PALUMBO, AMBIKA A 01/22/242033 Nasopharyngeal Respiratory Panel Once Final result PALUMBO AMBIKA A 01/22/242033 SARS CoV-2/COVID-19 by PCR - Rapid Once Final result PALUMBO, AMBIKA A 01/22/242033 Hemoglobin A1c Once Final result PALUMBO AMBIKA A 01/22/242033 Procalcitonin Once Final result PALUMBO AMBIKA A 01/22/242033 C-reactive protein Once Final result PALUMBO, AMBIKA A 01/22/242033 Magnesium Once Final result PALUMBO AMBIKA A 01/22/242033 Phosphorus Once Final result APLUMBO AMBIKA A 01/22/24 193 Consult to Family Medicine Once Specialty: Family Medicine Provider: (Not yet assigned) Acknowledged ROXI PALUMBOER A 01/22/241899 Consult to [facility] Once Specialty: Internal Medicine Provider: (Not yet assigned) Completed LINWOOD AMBIKA A 01/22/241899 ED to floor bed request Once Completed LINWOOD AMBIKA A 01/22/24 185 Urinalysis Microscopic Examination Once Final result FLORY SQUIRES 01/22/24 1623 Continuous 72hr Hold Canceled NAS REYNAGA 01/22/24 1527 Urinalysis with reflex microscopic AND reflex culture (IF UTI SUSPECTED) STAT Final result FLORY SQUIRES 01/22/24 1527 Urinalysis with reflex microscopic (Culture NOT Included) PROCEDURE ONCE Final result FLORY SQUIRES 01/22/24 1527 Urine Gunter Panel PROCEDURE ONCE Final result FLORY SQUIRES 01/22/24 1520 hCG, Total Beta, Quantitative, Plasma STAT Final result FLORY SQUIRES 01/22/24 1457 CBC STAT Final result MIREYA LINDSAY 01/22/24 1457 CMP STAT Final result MIREYA LINDSAY 01/22/24 1457 Lipase STAT Final result MIREYA LINDSAY 01/22/24 1457 Lactic acid, venous STAT Final result MIREYA LINDSAY 01/22/24 1457 Insert peripheral IV Once Completed MIREYA LINDSAY ED Course as of 01/23/24 0025 Fri Jan 22, 2024 1545 CBC(!) No actionable items [RM] 1627 CMP(!) Not actionable [RM] 1627 Lipase(!) Not actionable [RM] Sat Jan 23, 2024 0022 After multiple doses of IV pain medications, the patient did not have any improvement in her pain. She was also not able to tolerate oral intake. Given this, I do not believe that this patient would be able to be discharged home. I had an interactive discussion with Hospital Medicine for admission of this patient. After discussion with them, it was believe that this patient was a family Medicine patient. I had an interactive discussion with family medicine regarding this patient. This patient was previously established with family Medicine, however now follows in a different health system. Ultimately this patient was admitted to Hospital Medicine. [RM] ED Course User Index [RM] Flory Squires MD Clinical Impressions as of 01/23/24 0025 Abdominal pain, unspecified abdominal location Social Determinates of Health Risks (including Economic Stability, Education and level of understanding, Healthcare access and quality and concerning social factors): Lives far away Ultimately, this patient was Was admitted (Admission) The encounter diagnosis was Abdominal pain, unspecified abdominal location.. Patient believed to require admission for the listed diagnoses. The Internal Medicine service was consulted for admission and was agreeable to admit to Acute Floor (Med/Surg). ED Prescriptions None Disposition Admit Requested Location: [facility] [[id number]] - Flory Squires MD Resident 01/23/246 Cosigned by Nas Reynaga MD at 01/23/2024 3:18 PM EST Associated attestation - Nas Reynaga MD - 01/23/2024 3:18 PM EST I saw and evaluated the patient with the resident/fellow. I discussed the case with the resident/fellow and agree with the findings and plan as documented. * ED Triage Notes - Bambi Palomares RN - 01/22/2024 1:52 PM EST LUQ pain radiating to back x 3 days, worse today. Nausea and vomiting started yesterday. Hx of pancreatitis. documented in this encounter Plan of Treatment Scheduled Orders Name Type Priority Associated Diagnoses Orde r Schedule Helicobacter pylori Antigen Microbiology Routine Once (Lab) for 1 Occurrences starting 01/22/2024 until 01/22/2024 documented as of this encounter Procedures Procedure Name Priority Date/Time Associated Diagnosis Comments MORPHOLOGY STAT 01/25/2024 3:47 AM EST CBC WITH AUTO DIFFERENTIAL Pending Discharge 01/25/2024 3:47 AM EST PHOSPHORUS, PLASMA Pending Discharge 01/25/2024 3:47 AM EST MAGNESIUM, PLASMA Pending Discharge 01/25/2024 3:47 AM EST COMPREHENSIVE METABOLIC PANEL, PLASMA Pending Discharge 01/25/2024 3:47 AM EST OXYCODONE CONFIRMATION,URINE Routine 01/23/2024 7:49 PM EST OPIATES, LCMSMS, URINE Routine 01/23/2024 7:49 PM EST DRUG ABUSE SCREEN, URINE Routine 01/23/2024 7:49 PM EST THC URINE CONFIRM Routine 01/23/2024 7:4 9 PM EST BENZODIAZEPINE, URINE, QUANTITATIVE Routine 01/23/2024 7:49 PM EST XR ABDOMEN 1 VIEW Routine 01/23/2024 8:1 6 AM EST ECG ADULT STAT 01/22/2024 9:50 PM EST SARS COV-2/COVID-19 BY PCR - RAPID Routine 01/22/2024 8:50 PM EST NASOPHARYNGEAL RESPIRATORY PANEL Routine 01/22/2024 8:50 PM EST URINALYSIS WITH REFLEX MICROSCOPIC STAT 01/22/2024 6:36 PM EST URINE GUNTER PANEL STAT 01/22/2024 6:36 PM EST URINALYSIS MICROSCOPIC FOR UA REFLEX STAT 01/22/2024 6:36 PM EST URINALYSIS WITH REFLEX MICROSCOPIC STAT 01/22/2024 6:36 PM EST LACTATE, VENOUS STAT 01/22/2024 3:39 PM EST PROCALCITONIN, PLASMA Add-On 01/22/2024 3:39 PM EST CBC W/O DIFFERENTIAL STAT 01/22/2024 3:39 PM EST C-REACTIVE PROTEIN, PLASMA Add-On 01/22/2024 3:39 PM EST HCG, QUANTITATIVE STAT 01/22/2024 3:3 9 PM EST PHOSPHORUS, PLASMA Add-On 01/22/2024 3: 39 PM EST MAGNESIUM, PLASMA Add-On 01/22/2024 3:3 9 PM EST LIPASE, PLASMA STAT 01/22/2024 3:39 PM EST HEMOGLOBIN A1C Add-On 01/22/2024 3:39 PM EST COMPREHENSIVE METABOLIC PANEL, PLASMA STAT 01/22/2024 3:39 PM EST documented in this encounter Results * Morphology (01/25/2024 3:47 AM EST) RBC Morphology Slide Reviewed LAB HEMATOLOGY METHOD 01/25/2024 4:34 AM EST [facility] Platelet Estimate Platelet count not valid due to clumping. Appears normal. LAB HEMATOLOGY METHOD 01/25/2024 4:34 AM EST [facility] Blood Venous blood specimen / Unknown Venipuncture / Unknown 01/25/2024 3:47 AM EST 01/25/2024 4:00 AM EST us Mary Sotelo MD LAB BLOOD ORDERABLES Final Result Performing Organization Address City/[facility] Co de Phone Number [facility] [address] [place] [address] * Phosphorus (01/25/2024 3:47 AM EST) Phosphorus, Plasma 3.3 2.5 - 4.5 mg/dL 01/25/2024 4:22 AM EST [facility] Blood Venous blood specimen / Unknown Venipuncture / Unknown 01/25/2024 3:47 AM EST 01/25/2024 4:00 AM EST Mary Sotelo MD LAB BLOOD ORDERABLES Final Result [facility] [address] [place] [address] * Magnesium (01/25/2024 3:47 AM EST) Magnesium, Plasma 2.3 1.9 - 2.4 mg/dL 01/25/2024 4:22 AM EST [facility] Blood Venous blood specimen / Unknown Venipuncture / Unknown 01/25/2024 3:47 AM EST 01/25/2024 4:00 AM EST us Mary Sotelo MD LAB BLOOD ORDERABLES Final Result [facility] [address] [place] [address] * (ABNORMAL) Comprehensive metabolic panel (01/25/2024 3:47 AM EST) Glucose, Plasma 98 74 - 99 mg/dL 01/25/2024 4:22 AM EST [facility] BUN, Plasma 4(L) 7 - 21 mg/dL 01/25/2024 4:22 AM EST [facility] Creatinine, Plasma 0.67 0.60 - 1.10 mg/dL 01/25/2024 4:22 AM EST [facility] BUN/Creatinine Ratio 6 01/25/2024 4:22 AM EST [facility] Sodium, Plasma 137 136 - 145 mmol/L 01/25/2024 4:22 AM [facility] Potassium, Plasma 4.5 3.6 - 4.9 mmol/L 01/25/2024 4:22 AM [facility] Chloride, Plasma 101 97 - 107 mmol/L 01/25/2024 4:22 AM [facility] CO2, Plasma 30(H) 22 - 29 mmol/L 01/25/2024 4:22 AM [facility] Anion Gap 6 6 - 16 mmol/L 01/25/2024 4:22 AM [facility] Total Calcium, Plasma 8.8(L) 8.9 - 10.2 mg/dL 01/25/2024 4:22 AM [facility] Total Protein 6.3 6.3 - 7.9 g/dL 01/25/2024 4:22 AM [facility] Albumin, Plasma 3.9 3.5 - 5.2 g/dL 01/25/2024 4:22 AM [facility] AST, Plasma 44(H) 10 - 35 U/L 01/25/2024 4:22 AM [facility] ALT, Plasma 42(H) 10 - 35 U/L 01/25/2024 4:22 AM [facility] Alkaline Phosphatase, Plasma 84 35 - 104 U/L 01/25/2024 4:22 AM [facility] Total Bilirubin, Plasma 0.4 0.2 - 1.1 mg/dL 01/25/2024 4:22 AM EST [facility] eGFRcr 115.6 mL/min/1.7 3m*2 01/25/2024 4:22 AM EST [facility] Comment:Reported eGFRcr in m L/min/1.73m2 is based the CKD-EPI 2020 equation that does not use a race coefficient. Blood Venous blood specimen / Unknown Venipuncture / Unknown 01/25/2024 3:47 AM EST 01/25/2024 4:00 AM EST us Mary Sotelo MD LAB BLOOD ORDERABLES Final Result [facility] [address] [place] [address] * (ABNORMAL) CBC and differential (01/25/2024 3:47 AM EST) WBC Count 4.86 3.70 - 10.30 10*3/uL LAB HEMATOLOGY METHOD 01/25/2024 4:34 AM EST [facility] RBC Count 4.36 3.90 - 5.20 10*6/uL LAB HEMATOLOGY METHOD 01/25/2024 4:34 AM EST [facility] HGB 11.2 11.2 - 15.7 g/dL LAB HEMATOLOGY METHOD 01/25/2024 4:34 AM EST [facility] HCT 35.8 34.0 - 45.0 % LAB HEMATOLOGY METHOD 01/25/2024 4:34 AM EST [facility] Platelet Count LAB HEMATOLOGY METHOD 01/25/2024 4:34 AM EST [facility] Comment:Platelet count not v alid due to clumping. Appears Normal. MCV 82 79 - 98 fL LAB HEMATOLOGY METHOD 01/25/2024 4:34 AM EST [facility] MCH 25.7(L) 26.0 - 32.0 pg LAB HEMATOLOGY METHOD 01/25/2024 4:34 AM EST [facility] MCHC 31.3 30.7 - 35.5 g/dL LAB HEMATOLOGY METHOD 01/25/2024 4:34 AM EST [facility] RDW 15.4(H) 11.5 - 14.5 % LAB HEMATOLOGY METHOD 01/25/2024 4:34 AM EST [facility] MPV LAB HEMATOLOGY METHOD 01/25/2024 4:34 AM EST [facility] Comment:Not Measured nRBC 0.0 <=0.0 per 100 WBCs LAB HEMATOLOGY METHOD 01/25/2024 4:34 AM EST [facility] Differential Type Automated LAB HEMATOLOGY METHOD 01/25/2024 4:34 AM EST [facility] Neutrophils % 44 % LAB HEMATOLOGY METHOD 01/25/2024 4:34 AM EST [facility] Lymphocytes % 47 % LAB HEMATOLOGY METHOD 01/25/2024 4:34 AM EST [facility] Monocytes % 4 % LAB HEMATOLOGY METHOD 01/25/2024 4:34 AM EST [facility] Eosinophils % 4 % LAB HEMATOLOGY METHOD 01/25/2024 4:34 AM EST [facility] Basophils % 1 % LAB HEMATOLOGY METHOD 01/25/2024 4:34 AM EST [facility] Immature Granulocytes % 0 % LAB HEMATOLOGY METHOD 01/25/2024 4:34 AM EST [facility] Neutrophils Absolute 2.15 1.60 - 6.10 10*3/uL LAB HEMATOLOGY METHOD 01/25/2024 4:34 AM EST [facility] Lymphocytes Absolute 2.27 1.20 - 3.90 10*3/uL LAB HEMATOLOGY METHOD 01/25/2024 4:34 AM EST [facility] Monocytes Absolute 0.20(L) 0.30 - 0.90 10*3/uL LAB HEMATOLOGY METHOD 01/25/2024 4:34 AM EST [facility] Eosinophils Absolute 0.17 0.00 - 0.50 10*3/uL LAB HEMATOLOGY METHOD 01/25/2024 4:34 AM EST [facility] Basophils Absolute 0.05 0.00 - 0.10 10*3/uL LAB HEMATOLOGY METHOD 01/25/2024 4:34 AM EST [facility] Immature Granulocytes Absolute 0.02 0.00 - 0.06 10*3/uL LAB HEMATOLOGY METHOD 01/25/2024 4:34 AM EST [facility] Blood Venous blood specimen / Unknown Venipuncture / Unknown 01/25/2024 3:47 AM EST 01/25/2024 4:00 AM EST [facility] - 01/25/2024 4:34 AM EST Therapeutic decision making should be based on absolute values, rather than percentages. Mary Sotelo MD LAB BLOOD ORDERABLES Final Result Performing Organization Address City/[facility] Co de Phone Number [facility] [address] [place] [address] * (ABNORMAL) OXYCODONE CONFIRMATION,URINE (01/23/2024 7:49 PM EST) Oxycodone >1,000(H) <50 ng/mL 01/26/2024 7:10 AM EST [facility] Oxymorphone <50 <50 ng/mL 01/26/2024 7:10 AM EST [facility] Oxymorphone Glucuronide >1,000(H) <50 ng/mL 01/26/2024 7:10 AM EST [facility] Urine Urine specimen obtained by clean catch procedure / Unknown Non-blood Collection / Unknown 01/23/2024 7:49 PM EST 01/23/2024 8:25 PM EST Narrative [facility] - 01/26/2024 7:10 AM EST Test performed by LC-MS/MS at the [facility]. This test was developed and its performance characteristics determined by [facility]. It has not been cleared or approved by the FDA. The laboratory is regulated under CLIA as qualified to perform high-complexity testing. This test is used for clinical purposes. Ambika NAJERA LAB URINE ORDERABLES Final Result Performing Organization Address [facility] de Phone Number [facility] [address] [place] [id number] * (ABNORMAL) Opiates Confirm Urine (01/23/2024 7:49 PM EST) Codeine <50 <50 ng/mL 01/26/2024 7:10 AM EST [facility] Codeine Glucuronide <50 <50 ng/mL 01/26/2024 7:10 AM EST [facility] Desmethyl Tramadol <50 <50 ng/mL 01/26/2024 7:10 AM EST [facility] EDDP - Methadone Metabolite <50 <50 ng/mL 01/26/2024 7:10 AM EST [facility] Hydrocodone <50 <50 ng/mL 01/26/2024 7:10 AM EST [facility] Hydromorphone <50 <50 ng/mL 01/26/2024 7:10 AM EST [facility] Hydromorphone Glucuronide <50 <50 ng/mL 01/26/2024 7:10 AM EST [facility] Comment:Metabolite of Hydrom orphone Meperidine <50 <50 ng/mL 01/26/2024 7:10 AM EST [facility] Methadone <50 <50 ng/mL 01/26/2024 7:10 AM EST [facility] 6 Monoacetyl morphine <10 <10 ng/mL 01/26/2024 7:10 AM EST [facility] Morphine 181(H) <50 ng/mL 01/26/2024 7:10 AM [facility] Morphine Glucuronide >1,000(H) <50 ng/mL 01/26/2024 7:10 AM [facility] Comment:Metabolite of Morphi ne Naloxone <50 <50 ng/mL 01/26/2024 7:10 AM [facility] Naloxone Glucuronide <50 <50 ng/mL 01/26/2024 7:10 AM [facility] Comment:Metabolite of Naloxo ne Normeperidine <50 <50 ng/mL 01/26/2024 7:10 AM [facility] Tramadol <50 <50 ng/mL 01/26/2024 7:10 AM [facility] Urine Urine specimen obtained by clean catch procedure / Unknown Non-blood Collection / Unknown 01/23/2024 7:49 PM EST 01/23/2024 8:25 PM EST [facility] - 01/26/2024 7:10 AM EST Drug analysis is confirmed by LC-MS/MS (LC Tandem Mass Spectrometry) on Urine specimens. ?? This test was developed and its performance characteristics determined by [facility]. It has not been cleared or approved by the FDA. The laboratory is regulated under CLIA as qualified to perform high-complexity testing. This test is used for clinical purposes. Testing is performed at the [facility]. Ambika A Palumbo PA LAB URINE ORDERABLES Final Result Performing Organization Address [facility]/ZIP Co de Phone Number [facility] [address] [place] [address] * (ABNORMAL) THC Urine Confirm LCMSMS (01/23/2024 7:49 PM EST) 9 Carboxy THC <10 <10 ng/mL 01/26/2024 7:10 AM EST [facility] 9 Carboxy THC Glucuronide 86(H) <25 ng/mL 01/26/2024 7:10 AM EST [facility] Urine Urine specimen obtained by clean catch procedure / Unknown Non-blood Collection / Unknown 01/23/2024 7:49 PM EST 01/23/2024 8:25 PM EST Narrative [facility] - 01/26/2024 7:10 AM EST Drug analysis is confirmed by LC-MS/MS (LC Tandem Mass Spectrometry) on Urine specimens. ?? This test was developed and its performance characteristics determined by [facility]. It has not been cleared or approved by the FDA. The laboratory is regulated under CLIA as qualified to perform high-complexity testing. This test is used for clinical purposes. Testing is performed at the [facility]. Ambika NAJERA LAB URINE ORDERABLES Final Result Performing Organization Address [facility] Co de Phone Number [facility] [address] [place] [address] * (ABNORMAL) Benzodiazepine Confirm Urine (01/23/2024 7:49 PM EST) Alpha [place] Alprazolam <20 <20 ng/mL 01/25 7:10 AM EST [facility] Alpha [place] Midazolam <20 <20 ng/mL 2023 7:10 AM EST [facility] Alpha [place] Triazolam <20 <20 ng/mL 2023 7:10 AM EST [facility] Alprazolam <10 <10 ng/mL 01/26/2024 7:10 AM EST [facility] Aminoclonazepam >1,000(H) <20 ng/mL 7:10 AM EST [facility] Clonazepam 66(H) <10 ng/mL 01/26/2024 7:10 AM EST [facility] Diazepam <10 <10 ng/mL 01/26/2024 7:10 AM EST [facility] Lorazepam <20 <20 ng/mL 01/26/2024 7:10 AM EST [facility] Lorazepam Glucuronide <50 <50 ng/mL 01/26/2024 7:10 AM EST [facility] Midazolam 01/26/2024 7:10 AM EST [facility] Nordiazepam <20 <20 ng/mL 01/26/2024 7:10 AM EST [facility] Oxazepam <20 <20 ng/mL 01/26/2024 7:10 AM EST [facility] Oxazepam Glucuronide <50 <50 ng/mL 01/26/2024 7:10 AM EST [facility] Temazepam <20 <20 ng/mL 01/26/2024 7:10 AM EST [facility] Temazepam Glucuronide <50 <50 ng/mL 01/26/2024 7:10 AM EST [facility] Triazolam 01/26/2024 7:10 AM EST [facility] Urine Urine specimen obtained by clean catch procedure / Unknown Non-blood Collection / Unknown 01/23/2024 7:49 PM EST 01/23/2024 8:25 PM EST Narrative [facility] - 01/26/2024 7:10 AM EST Drug analysis is confirmed by LC-MS/MS (LC Tandem Mass Spectrometry) on Urine specimens. ?? This test was developed and its performance characteristics determined by [facility]. It has not been cleared or approved by the FDA. The laboratory is regulated under CLIA as qualified to perform high-complexity testing. This test is used for clinical purposes. Testing is performed at the [facility]. Ambika NAJERA LAB URINE ORDERABLES Final Result [facility] [address] [place] [address] * Drug Abuse Screen Urine (01/23/2024 7:49 PM EST) [facility] Amphetamine Screen Urine Negative Cutoff: 500 ng/mL 01/23/2024 8:52 PM EST [facility] Benzodiazepines Screen Urine Presumptive positive. Confirmation by LC-MS/MS to follow. Cutoff: 200 ng/mL 01/23/2024 8:52 PM EST [facility] Cannabinoid Screen Urine Presumptive positive. Confirmation by LC-MS/MS to follow. Cutoff: 50 ng/mL 01/23/2024 8:52 PM EST [facility] Cocaine Screen Urine Negative Cutoff: 300 ng/mL 01/23/2024 8:52 PM EST [facility] Barbiturate Screen Urine Negative Cutoff: 200 ng/mL 01/23/2024 8:52 PM EST [facility] Opiate Screen Urine Presumptive positive. Confirmation by LC-MS/MS to follow. Cutoff: 300 ng/mL 01/23/2024 8:52 PM EST [facility] Methadone Screen Urine Negative Cutoff: 300 ng/mL 01/23/2024 8:52 PM EST [facility] Buprenorphine Screen Urine Negative Cutoff: 10 ng/mL 01/23/2024 8:52 PM EST [facility] Fentanyl Screen Urine Negative Cutoff: 1 ng/mL 01/23/2024 8:52 PM EST [facility] Oxycodone Screen Urine Presumptive positive. Confirmation by LC-MS/MS to follow. Cutoff: 100 ng/mL 01/23/2024 8:52 PM EST [facility] Urine Urine specimen obtained by clean catch procedure / Unknown Non-blood Collection / Unknown 01/23/2024 7:49 PM EST 01/23/2024 8:25 PM EST Ambika NAJERA LAB URINE ORDERABLES Final Result [facility] [address] [place] [address] * XR Abdomen 1 View (01/23/2024 8:16 AM EST) Anatomical Region Laterality Modality Body Digital Radiogra phy Impressions 01/23/2024 8:19 AM EST Nonobstructive bowel gas pattern. No pneumoperitoneum. CRITICAL RESULT: ?? No. COMMUNICATION: Per this written report. Drafted by Kellie Jerome MD on 01/23/2024 8:18 AM Final report signed by Kellie Jerome MD on 01/23/2024 8:19 AM Narrative 01/23/2024 8:19 AM EST CLINICAL INDICATION: Hx of PUD with epigastric pain TECHNIQUE: Supine radiograph of the abdomen. COMPARISON: 12/16/2023 FINDINGS: Cholecystectomy clips. Nonobstructive bowel gas pattern. No pneumoperitoneum. No abnormal intra-abdominal calcifications. No aggressive bone abnormality. Procedure Note Kellie Jerome MD - 01/23/2024 CLINICAL INDICATION: Hx of PUD with epigastric pain TECHNIQUE: Supine radiograph of the abdomen. COMPARISON: 12/16/2023 FINDINGS: Cholecystectomy clips. Nonobstructive bowel gas pattern. Nopneumoperitoneum. No abnormal intra-abdominal calcifications. Noaggressive bone abnormality. IMPRESSION: Nonobstructive bowel gas pattern. No pneumoperitoneum. CRITICAL RESULT: No. COMMUNICATION: Per this written report. Drafted by Kellie Jerome MD on 01/23/2024 8:18 AM Final report signed by Kellie Jerome MD on 01/23/2024 8:19 AM us Ambika NAJERA IMG XR PROCEDURES Final Re sult * ECG Adult (01/22/2024 9:50 PM EST) EKG DIAGNOSIS CLASS Borderline Normal MUSE ECG Ventricular Rate 53 BPM MUSE ECG Atrial Rate 53 BPM MUSE ECG NH Interval 112 ms MUSE ECG QRSD Interval 96 ms MUSE ECG QT Interval 450 ms MUSE ECG QTC Interval 422 ms MUSE ECG P Boron 33 degrees MUSE ECG R Boron 20 degrees MUSE ECG T Wave Boron 22 degrees MUSE ECG Diagnosis Sinus bradycardia with sinus arrhythmia MUSE ECG Diagnosis Otherwise normal ECG MUSE ECG Diagnosis MUSE ECG Diagnosis Confirmed by Francis Day ([id number]) on 01/23/2024 9:46:19 AM MUSE ECG 01/22/2024 9:50 PM EST 01/23/2024 9:46 AM EST us Ambika NAJERA ECG ORDERABLES Final Resu lt MUSE ECG * Nasopharyngeal Respiratory Panel (01/22/2024 8:50 PM EST) Nasopharyngeal Respiratory PCR Interpretation Not Detected for all analytes Not Detected for all analytes 01/22/2024 10:59 PM EST [facility] Swab Nasopharyngeal structure / Unknown Non-blood Collection / Unknown 01/22/2024 8:50 PM EST 01/22/2024 9:01 PM EST Narrative [facility] - 01/22/2024 10:59 PM EST This assay can detect Adenovirus, Coronavirus, Human Metapneumovirus, Human Rhino/Enterovirus, Influenza A, Influenza A H1, Influenza A H1 2009, Influenza A H3, Influenza B, Parainfluenza Virus 1, Parainfluenza Virus 2, Parainfluenza Virus 3, Parainfluenza Virus 4, Respiratory Syncytial Virus A, Respiratory Syncytial Virus B, Chlamydia pneumoniae, and Mycoplasma pneumoniae. Note: This assay does NOT detect SARS/CoV, novel Coronavirus 2019-nCoV, Bordetella pertussis or Bordetella parapertussis. Nasopharyngeal Respiratory PCR Panel is performed using the [employer] and [employer] instrument. ??This test is FDA approved for use with Nasopharyngeal swabs only. This test is used for clinical purposes. It should not be regarded as investigational or for research. The [facility] is certified under the Clinical Laboratory Improvement Amendments of 1988 (CLIA-88) as qualified to perform high complexity clinical laboratory testing. Ambika NAJERA LAB MICROBIOLOGY - GENERAL ORDERABLES Final Result [facility] [address] [place] [address] * SARS CoV-2/COVID-19 by PCR - Rapid (01/22/2024 8:50 PM EST) Pathologist [facility] SARS CoV-2/COVID-1 9 RNA PCR Result Not Detected Not Detected 01/22/2024 9:53 PM EST [facility] Swab Nasopharyngeal structure / Unknown Non-blood Collection / Unknown 01/22/2024 8:50 PM EST 01/22/2024 9:01 PM EST Narrative [facility] - 01/22/2024 9:53 PM EST This test is FDA approved for use with nasopharyngeal specimens in [employer] (VTM). This test is used for clinical purposes. It should not be regarded as investigational or for research. This laboratory is certified under the Clinical Laboratory improvement Amendments of 1988 (CLIA-88 as qualified to perform high complexity clinical laboratory testing. This test was performed on the Xpert Xpress SARS CoV-2 Plus assay test, a PCR- based method. Negative results should be considered presumptive and do not preclude current or future infection obtained through community transmission or other exposures. Negative results must be considered in the context of an individual's recent exposures, history, presence of clinical signs and symptoms consistent with COVID-19. us Ambika NAJERA LAB MICROBIOLOGY - GENERAL ORDERABLES Final Result Performing Organization Address [facility] de Phone Number [facility] [address] [place] [address] * Urinalysis Microscopic Examination (01/22/2024 6:36 PM EST) Urine Urine specimen obtained by clean catch procedure / Unknown Non-blood Collection / Unknown 01/22/2024 6:36 PM EST 01/22/2024 6:49 PM EST us Nas Reynaga MD LAB URINE ORDERABLES Final Resul t Performing Organization Address [facility] Co de Phone Number [facility] [address] [place] [address] * Urine Gunter Panel (01/22/2024 6:36 PM EST) Extra Reflex urine culture not indicated 01/22/2024 9:01 PM EST [facility] Urine Urine specimen obtained by clean catch procedure / Unknown Non-blood Collection / Unknown 01/22/2024 6:36 PM EST 01/22/2024 7:03 PM EST us Nas Reynaga MD LAB URINE ORDERABLES Final Resul t Performing Organization Address [facility] Phone Number [facility] [address] [place] [address] * (ABNORMAL) Urinalysis with reflex microscopic (Culture NOT Included) (01/22/2024 6:36 PM EST) Color, Urine Yellow LAB URINALYSIS - AUTOMATED METHOD 01/22/2024 7:46 PM [facility] Clarity, Urine Cloudy LAB URINALYSIS - AUTOMATED METHOD 01/22/2024 7:46 PM [facility] Spec [place], Urine 1.016 1.005 - 1.030 LAB URINALYSIS - AUTOMATED METHOD 01/22/2024 7:46 PM [facility] pH, Urine 6.5 4.5 to 8 LAB URINALYSIS - AUTOMATED METHOD 01/22/2024 7:46 PM [facility] Protein, Urine Negative Negative mg/dL LAB URINALYSIS - AUTOMATED METHOD 01/22/2024 7:46 PM [facility] Glucose, Urine Negative Negative mg/dL LAB URINALYSIS - AUTOMATED METHOD 01/22/2024 7:46 PM [facility] Ketones, Urine Negative Negative mg/dL LAB URINALYSIS - AUTOMATED METHOD 01/22/2024 7:46 PM [facility] Blood, Urine Negative Negative LAB URINALYSIS - AUTOMATED METHOD 01/22/2024 7:46 PM [facility] Bilirubin, Urine Negative Negative LAB URINALYSIS - AUTOMATED METHOD 01/22/2024 7:46 PM [facility] Urobilinogen, Urine 0.2 0.2 to 1.0 mg/dL LAB URINALYSIS - AUTOMATED METHOD 01/22/2024 7:46 PM [facility] Leukocytes, Urine Small(A) Negative LAB URINALYSIS - AUTOMATED METHOD 01/22/2024 7:46 PM [facility] Nitrite, Urine Negative Negative LAB URINALYSIS - AUTOMATED METHOD 01/22/2024 7:46 PM [facility] RBC, Urine <1 0 to 3 /HPF 01/22/2024 7:46 PM [facility] Comment:This result was prev iously suppressed from the chart. WBC, Urine 0 - 5 0 to 5 /HPF 01/22/2024 7:46 PM [facility] Comment:This result was prev iously suppressed from the chart. Squamous Epithelial Cells 3 - 5 0 to 5 /HPF 01/22/2024 7:46 PM EST [facility] Comment:This result was prev iously suppressed from the chart. Hyaline Casts 0 - 2 0 to 5 /LPF 01/22/2024 7:46 PM EST [facility] Comment:This result was prev iously suppressed from the chart. Bacteria, Urine Negative Negative 01/22/2024 7:46 PM EST [facility] Comment:This result was prev iously suppressed from the chart. Urine Urine specimen obtained by clean catch procedure / Unknown Non-blood Collection / Unknown 01/22/2024 6:36 PM EST 01/22/2024 6:49 PM EST Narrative [facility] - 01/22/2024 7:46 PM EST Performed by manual method us Nas Reynaga MD LAB URINE ORDERABLES Final Resul t [facility] [address] [place] [address] * Hemoglobin A1c (01/22/2024 3:39 PM EST) Hemoglobin A1c 5.1 <5.7 % 01/22/2024 10:44 PM EST [facility] Blood Venous blood specimen / Unknown Venipuncture / Unknown 01/22/2024 3:39 PM EST 01/22/2024 3:43 PM EST Narrative [facility] - 01/22/2024 10:44 PM EST HA1C Interpretive Data: Diagnosis of Diabetes: Diabetic > or = 6.5% Pre-diabetic 5.7 to 6.4% Non-diabetic < or = 5.6% Glycemic Targets for Type I and Type II Diabetics: Non- Adults <7.0% Adults <6.0% Children and Adolescents <7.5% Source: ??[place] [employer]. Standards of medical care in diabetes,2017. Diabetes Care.2017:40 (suppl 1):S1-S135. HbA1c assay performed by an ion-exchange chromatography method that is certified traceable to the DCCT. us Ambika NAJERA LAB BLOOD ORDERABLES Final Result [facility] [address] [place] [address] * Phosphorus (01/22/2024 3:39 PM EST) Phosphorus, Plasma 2.5 2.5 - 4.5 mg/dL 01/22/2024 9:13 PM EST [facility] Blood Venous blood specimen / Unknown Venipuncture / Unknown 01/22/2024 3:39 PM EST 01/22/2024 3:43 PM EST us Ambika NAJERA LAB BLOOD ORDERABLES Final Result Performing Organization Address City/[facility]/ZIP Co de Phone Number [facility] [address] [place] [address] * Magnesium (01/22/2024 3:39 PM EST) [facility] Magnesium, Plasma 2.0 1.9 - 2.4 mg/dL 01/22/2024 9:13 PM EST [facility] Blood Venous blood specimen / Unknown Venipuncture / Unknown 01/22/2024 3:39 PM EST 01/22/2024 3:43 PM EST us Ambika NAJERA LAB BLOOD ORDERABLES Final Result Performing Organization Address City/[facility] Co de Phone Number [facility] [address] [place] [address] * C-reactive protein (01/22/2024 3:39 PM EST) CRP, Plasma <3.0 <=8.0 mg/L 01/22/2024 9:13 PM EST [facility] Blood Venous blood specimen / Unknown Venipuncture / Unknown 01/22/2024 3:39 PM EST 01/22/2024 3:43 PM EST Narrative [facility] - 01/22/2024 9:13 PM EST This CRP test is appropriate for assessment of infection, systemic inflammation and/or tissue injury. To assess cardiovascular disease risk order high sensitivity CRP (CRPH). us Ambika NAJERA LAB BLOOD ORDERABLES Final Result Performing Organization Address [facility] Co de Phone Number [facility] [address] [place] [address] * Procalcitonin (01/22/2024 3:39 PM EST) Procalcitonin, Plasma <0.06 <0.09 ng/mL 01/22/2024 9:57 PM EST [facility] Blood Venous blood specimen / Unknown Venipuncture / Unknown 01/22/2024 3:39 PM EST 01/22/2024 3:43 PM EST Narrative [facility] - 01/22/2024 9:57 PM EST Procalcitonin concentrations in healthy individuals are <0.09 ng/mL. Published data support the following interpretive risk assessment: An elevated procalcitonin result does not always indicate sepsis. Various non-infectious conditions are known to increase procalcitonin. Results should be considered in the context of clinical symptoms and other laboratory tests. Procalcitonin >2.0 ng/mL: Concentrations >2.0 ng/mL on the first day of ICU admission are associated with a higher risk of progression to severe sepsis and/or septic shock. The change in PCT over time may help predict 28 day mortality risk. Please consult [email or web address]-hwp-[email or web address] for more information. Test performed at [facility] Laboratory. Ambika NAJERA LAB BLOOD ORDERABLES Final Result Performing Organization Address [facility]/ZIP Co de Phone Number [facility] [address] [place] [address] * hCG, Total Beta, Quantitative, Plasma (01/22/2024 3:39 PM EST) hCG, Total Beta <1 <5 mIU/mL 4:22 PM EST [facility] Blood Venous blood specimen / Unknown Venipuncture / Unknown 01/22/2024 3:39 PM EST 01/22/2024 3:43 PM EST Narrative [facility] - 01/22/2024 4:22 PM EST Patients: ? Normal Range Premenopausal Female < 5 mIU/mL Male ?< 3 mIU/mL Postmenopausal Female < 8 mIU/mL The [employer] hCG+beta assay is standardized to the 4th IS for Chorionic Gonadotropin. ??The combination of the specific monoclonal antibodies used in this assay recognizes the holo-hormone, nicked forms of hCG, the Beta-core Fragment and the free beta-subunit. ?? Elevated hCG concentrations not associated with are found in patients with gestational trophoblastic disease and choriocarcinoma as well as germ cell, ovarian, bladder, pancreas, stomach, lung and liver tumors. Performed by the [employer] electrochemiluminescent immunoassay which is traceable to the 4th International Standard for hCG (NIBSC 75/589). Results obtained with different test methods or kits cannot be used interchangeably. us Nas Reynaga MD LAB BLOOD ORDERABLES Final Resul t Performing Organization Address City/[facility]/ZIP Co de Phone Number [facility] [address] [place] [address] * Lactic acid, venous (01/22/2024 3:39 PM EST) Lactate, Venous, Whole Blood 1.5 0.5 - 2.2 mmol/L LAB HEMATOLOGY METHOD 01/22/2024 3:45 PM EST [facility] Blood Venous blood specimen / Unknown Venipuncture / Unknown 01/22/2024 3:39 PM EST 01/22/2024 3:43 PM EST us Mireya Lindsay MD LAB BLOOD ORDERABLES Final Res ult [facility] [address] [place] [address] * (ABNORMAL) Lipase (01/22/2024 3:39 PM EST) Lipase, Plasma 17(L) 19 - 63 U/L 01/22/2024 4:22 PM EST [facility] Blood Venous blood specimen / Unknown Venipuncture / Unknown 01/22/2024 3:39 PM EST 01/22/2024 3:43 PM EST us Mireya Lindsay MD LAB BLOOD ORDERABLES Final Res ult [facility] [address] [place] [address] * (ABNORMAL) CMP (01/22/2024 3:39 PM EST) Glucose, Plasma 88 74 - 99 mg/dL 01/22/2024 4:22 PM EST [facility] BUN, Plasma 8 7 - 21 mg/dL 01/22/2024 4:22 PM EST [facility] Creatinine, Plasma 0.59(L) 0.60 - 1.10 mg/dL 01/22/2024 4:22 PM EST [facility] BUN/Creatinine Ratio 14 01/22/2024 4:22 PM EST [facility] Sodium, Plasma 139 136 - 145 mmol/L 01/22/2024 4:22 PM EST [facility] Potassium, Plasma 4.0 3.6 - 4.9 mmol/L 01/22/2024 4:22 PM EST [facility] Chloride, Plasma 104 97 - 107 mmol/L 01/22/2024 4:22 PM EST [facility] CO2, Plasma 25 22 - 29 mmol/L 01/22/2024 4:22 PM EST [facility] Anion Gap 10 6 - 16 mmol/L 01/22/2024 4:22 PM EST [facility] Total Calcium, Plasma 8.7(L) 8.9 - 10.2 mg/dL 01/22/2024 4:22 PM EST [facility] Total Protein 6.5 6.3 - 7.9 g/dL 01/22/2024 4:22 PM EST [facility] Albumin, Plasma 3.9 3.5 - 5.2 g/dL 01/22/2024 4:22 PM EST [facility] AST, Plasma 14 10 - 35 U/L 01/22/2024 4:22 PM EST [facility] ALT, Plasma 10 10 - 35 U/L 01/22/2024 4:22 PM EST [facility] Alkaline Phosphatase, Plasma 79 35 - 104 U/L 01/22/2024 4:22 PM EST [facility] Total Bilirubin, Plasma 0.3 0.2 - 1.1 mg/dL 01/22/2024 4:22 PM EST [facility] eGFRcr 119.2 mL/min/1.7 3m*2 01/22/2024 4:22 PM EST [facility] Comment:Reported eGFRcr in m L/min/1.73m2 is based the CKD-EPI 2020 equation that does not use a race coefficient. Blood Venous blood specimen / Unknown Venipuncture / Unknown 01/22/2024 3:39 PM EST 01/22/2024 3:43 PM EST us Mireya Lindsay MD LAB BLOOD ORDERABLES Final Res ult [facility] [address] [place] [address] * (ABNORMAL) CBC (01/22/2024 3:39 PM EST) WBC Count 6.98 3.70 - 10.30 10*3/uL LAB HEMATOLOGY METHOD 01/22/2024 3:45 PM EST [facility] RBC Count 4.48 3.90 - 5.20 10*6/uL LAB HEMATOLOGY METHOD 01/22/2024 3:45 PM EST [facility] HGB 11.5 11.2 - 15.7 g/dL LAB HEMATOLOGY METHOD 01/22/2024 3:45 PM EST [facility] HCT 36.0 34.0 - 45.0 % LAB HEMATOLOGY METHOD 01/22/2024 3:45 PM EST [facility] Platelet Count 265 155 - 369 10*3/uL LAB HEMATOLOGY METHOD 01/22/2024 3:45 PM EST [facility] MCV 80 79 - 98 fL LAB HEMATOLOGY METHOD 01/22/2024 3:45 PM EST [facility] MCH 25.7(L) 26.0 - 32.0 pg LAB HEMATOLOGY METHOD 01/22/2024 3:45 PM EST [facility] MCHC 31.9 30.7 - 35.5 g/dL LAB HEMATOLOGY METHOD 01/22/2024 3:45 PM EST [facility] RDW 15.9(H) 11.5 - 14.5 % LAB HEMATOLOGY METHOD 01/22/2024 3:45 PM EST [facility] MPV 9.7 8.8 - 12.5 fL LAB HEMATOLOGY METHOD 01/22/2024 3:45 PM EST [facility] nRBC 0.0 <=0.0 per 100 WBCs LAB HEMATOLOGY METHOD 01/22/2024 3:45 PM EST [facility] Blood Venous blood specimen / Unknown Venipuncture / Unknown 01/22/2024 3:39 PM EST 01/22/2024 3:43 PM EST us Mireya Lindsay MD LAB BLOOD ORDERABLES Final Res ult [facility] [address] [place] [address] documented in this encounter Visit Diagnoses Diagnosis Epigastric pain- Primary Abdominal pain, epigastric Abdominal pain, unspecified abdominal location Anxiety Anxiety state, unspecified Fibromyalgia Unspecified myalgia and myositis GERD (gastroesophageal reflux disease) Esophageal reflux Obesity Obesity, unspecified Chronic pain Other chronic pain Depression Depressive disorder, not elsewhere classified Intractable nausea and vomiting documented in this encounter Administered Medications Inactive Administered Medications - up to 3 most recent administrations Medication Order MAR Action Action Date Dose Rate Site acetaminophen (Tylenol) tablet 1,000 mg 1,000 mg, Oral, Every 6 hours scheduled, First dose on 01/23/24 at 0000, Until Discontinued, Routine Given 01/25/2024 11:40 AM EST 1,000 mg Given 01/25/2024 5:53 AM EST 1,000 mg Given 01/25/2024 12:09 AM EST 1,000 mg acetaminophen (Tylenol) tablet 1,000 mg 1,000 mg, Oral, Once, 1 dose, On 01/24/24 at 1345, Routine Given 01/24/2024 1:10 PM EST 1,000 mg amitriptyline (Elavil) tablet 25 mg 25 mg, Oral, Nightly, First dose on 01/23/24 at 2100, Until Discontinued, Routine Given 01/24/2024 8:32 PM EST 25 mg Given 01/23/2024 8:11 PM EST 25 mg dicyclomine (Bentyl) capsule 10 mg 10 mg, Oral, 4 times daily, First dose on 01/25/24 at 0900, Until Discontinued, Routine Given 01/25/2024 2:19 PM EST 10 mg Given 01/25/2024 8:40 AM EST 10 mg enoxaparin (Lovenox) syringe 40 mg 40 mg, Subcutaneous, Daily, First dose on 01/24/24 at 1715, Until Discontinued, Routine folic acid (Folvite) tablet 1 mg 1 mg, Oral, Daily, First dose on Thu01/22/24 at 2230, Until Discontinued, Routine Given 01/25/2024 8:40 AM EST 1 mg Given 01/24/2024 8:05 AM EST 1 mg Given 01/23/2024 11:36 AM EST 1 mg gi cocktail oral solution 30 mL 30 mL, Oral, Once, 1 dose, On 01/23/24 at 1930, Routine Given 01/23/2024 6:47 PM EST 30 mL gi cocktail oral solution 30 mL 30 mL, Oral, Once, 1 dose, On 01/24/24 at 1345, Routine Given 01/24/2024 1:11 PM EST 30 mL HYDROmorphone (Dilaudid) injection 0.25 mg 0.25 mg, Intravenous, Once, 1 dose, On 01/24/24 at 2330, Routine Given 01/24/2024 10:38 PM EST 0.25 mg HYDROmorphone (Dilaudid) injection 0.5 mg 0.5 mg, Intravenous, Once, 1 dose, On 01/23/24 at 0245, STAT Given 01/23/2024 1:54 AM EST 0.5 mg HYDROmorphone (Dilaudid) injection 0.5 mg 0.5 mg, Intravenous, Once, 1 dose, On 01/23/24 at 0400, Routine Given 01/23/2024 3:41 AM EST 0.5 mg HYDROmorphone (Dilaudid) injection 0.5 mg 0.5 mg, Intravenous, Once, 1 dose, On 01/23/24 at 2315, Routine Given 01/23/2024 10:26 PM EST 0.5 mg HYDROmorphone (Dilaudid) injection 1 mg 1 mg, Intravenous, Once, 1 dose, On Thu01/22/24 at 1705, STAT Given 01/22/2024 5:10 PM EST 1 mg HYDROmorphone (Dilaudid) injection 1 mg 1 mg, Intravenous, Once, 1 dose, On Thu01/22/24 at 1835, STAT Given 01/22/2024 7:48 PM EST 1 mg HYDROmorphone (Dilaudid) injection 1 mg 1 mg, Intravenous, Once, 1 dose, On 01/23/24 at 1215, Routine Given 01/23/2024 11:34 AM EST 1 mg hydrOXYzine pamoate (Vistaril) capsule 25 mg 25 mg, Oral, Every 6 hours PRN, Starting on Thu01/22/24 at 2149, Until 01/25/24 at 1705, Routine, anxiety Given 01/25/2024 8:40 AM EST 25 mg Given 01/23/2024 5:24 AM EST 25 mg lactated Ringer's bolus 1,000 mL 1,000 mL, Intravenous, Once, 1 dose, On Thu01/22/24 at 2150, Administer over 2 Hours, STAT New Bag 01/22/2024 10:29 PM EST 1,000 mL 500 mL/hr lidocaine (Lidoderm) 5 % patch 1 patch 1 patch, Apply externally, Every 24 hours, First dose on Thu01/25/24 at 0830, Until Discontinued, Administer over 12 Hours, Routine Medication Applied 01/25/2024 8:39 AM EST 1 patch Back morphine PF 2 mg 2 mg, Intravenous, Every 3 hours PRN, Starting on 01/23/24 at 1320, Until 01/24/24 at 1023, Routine, moderate pain, breakthrough pain after oxy Given 01/24/2024 9:15 AM EST 2 mg Given 01/24/2024 5:53 AM EST 2 mg Given 01/24/2024 2:49 AM EST 2 mg morphine PF 4 mg 4 mg, Intravenous, Once, 1 dose, On Thu01/22/24 at 1500, STAT Given 01/22/2024 3:31 PM EST 4 mg morphine PF 4 mg 4 mg, Intravenous, Once, 1 dose, On Thu01/22/24 at 1605, STAT Given 01/22/2024 4:19 PM EST 4 mg ondansetron (Zofran) 4 MG/5ML solution 4 mg 4 mg, Oral, Every 6 hours PRN, Starting on Thu01/22/24 at 2121, Until Thu01/25/24 at 1705, Routine, nausea, vomiting ondansetron (Zofran) injection 4 mg 4 mg, Intravenous, Once, 1 dose, On Thu01/22/24 at 1500, STAT Given 01/22/2024 3:31 PM EST 4 mg ondansetron (Zofran) injection 4 mg 4 mg, Intravenous, Once, 1 dose, On Thu01/22/24 at 1705, STAT Given 01/22/2024 5:09 PM EST 4 mg ondansetron (Zofran) injection 4 mg 4 mg, Intravenous, Every 6 hours PRN, Starting on Thu01/22/24 at 2121, Until Thu01/25/24 at 1705, Routine, vomiting, nausea Given 01/25/2024 3:08 AM EST 4 mg Given 01/24/2024 8:42 PM EST 4 mg Given 01/24/2024 2:05 PM EST 4 mg ondansetron ODT (Zofran-ODT) disintegrating tablet 4 mg 4 mg, Oral, Every 6 hours PRN, Starting on Thu01/22/24 at 2121, Until Thu01/25/24 at 1705, Routine, nausea, vomiting Given 01/23/2024 5:24 AM EST 4 mg oxyCODONE (Roxicodone) immediate release tablet 10 mg 10 mg, Oral, Every 6 hours, 8 doses, First dose (after last modification) on Thu01/24/24 at 1500, Last dose on Thu01/26/24 at 0900, Routine Given 01/25/2024 2:19 PM EST 10 mg Given 01/25/2024 8:40 AM EST 10 mg Given 01/25/2024 3:08 AM EST 10 mg oxyCODONE (Roxicodone) immediate release tablet 2.5 mg 2.5 mg, Oral, Once, 1 dose, On Thu01/24/24 at 1345, Routine Given 01/24/2024 1:09 PM EST 2.5 mg oxyCODONE (Roxicodone) immediate release tablet 5 mg 5 mg, Oral, Every 6 hours PRN, 8 doses, Starting on Thu01/22/24 at 2148, Until 01/23/24 at 1320, Routine, moderate pain, severe pain Given 01/23/2024 5:28 AM EST 5 mg Given 01/22/2024 10:22 PM EST 5 mg oxyCODONE (Roxicodone) immediate release tablet 7.5 mg 7.5 mg, Oral, Every 6 hours, 6 doses, First dose (after last modification) on 01/23/24 at 1500, Last dose on 01/24/24 at 2100, Routine Given 01/24/2024 8:05 AM EST 7.5 mg Given 01/24/2024 3:35 AM EST 7.5 mg Given 01/23/2024 8:11 PM EST 7.5 mg pantoprazole (Protonix) EC tablet 40 mg 40 mg, Oral, Daily, First dose on Thu01/22/24 at 2150, Until Discontinued, Routine Given 01/25/2024 8:40 AM EST 40 mg Given 01/24/2024 8:05 AM EST 40 mg Given 01/23/2024 11:35 AM EST 40 mg polyethylene glycol (Miralax) packet 17 g 17 g, Oral, Daily, First dose on Thu01/22/24 at 2150, Until Discontinued, Routine Given 01/23/2024 11:36 AM EST 17 g pregabalin (Lyrica) capsule 300 mg 300 mg, Oral, 2 times daily, First dose on Thu01/22/24 at 2150, Until Discontinued Given 01/25/2024 8:39 AM EST 300 mg Given 01/24/2024 8:32 PM EST 300 mg Given 01/24/2024 8:05 AM EST 300 mg senna (Senokot) tablet 17.2 mg 17.2 mg (2 tablet), Oral, Nightly, First dose on Thu01/22/24 at 2150, Until Discontinued, Routine Given 01/24/2024 8:32 PM EST 17.2 mg Given 01/23/2024 8:11 PM EST 17.2 mg sodium chloride 0.9 % flush 10 mL 10 mL, Intravenous, Every 12 hours, First dose on Thu01/22/24 at 2150, Until Discontinued, Routine Given 01/25/2024 8:47 AM EST 10 mL Given 01/24/2024 8:53 PM EST 10 mL Given 01/24/2024 9:16 AM EST 10 mL sodium chloride 0.9 % flush 10 mL 10 mL, Intravenous, As needed, Starting on Thu01/22/24 at 2114, Until Thu01/25/24 at 1705, Routine, line care sucralfate (Carafate) 1 GM/10ML suspension 1 g 1 g, Oral, 4 times daily before meals and nightly, First dose on 01/23/24 at 2100, Until Discontinued, Routine Given 01/25/2024 12:30 PM EST 1 g Given 01/25/2024 8:38 AM EST 1 g Given 01/24/2024 8:32 PM EST 1 g thiamine (Vitamin B-1) tablet 100 mg 100 mg, Oral, Daily, First dose on Thu01/25/24 at 0900, Until Discontinued, Routine Given 01/25/2024 8:39 AM EST 100 mg thiamine (Vitamin B-1) tablet 200 mg 200 mg, Oral, Every 8 hours, 6 doses, First dose on Thu01/22/24 at 2230, Last dose on 01/24/24 at 1430, STAT Given 01/24/2024 2:04 PM EST 200 mg Given 01/24/2024 8:04 AM EST 200 mg Given 01/24/2024 5:32 AM EST 200 mg documented in this encounter Active and Recently Administered Medications Times are shown in EST. Scheduled Medication Order 01/23/2024 01/24/2024 01/25/2024 acetaminophen (Tylenol) tablet 1,000 mg 1,000 mg, Oral, Every 6 hours scheduled, First dose on Thu01/23/24 at 0000, Until Discontinued, Routine 0123 (Not Given - Provider: Adela Mann - Reason: Patient/family refused)0617 (Not Given - Provider: Adela Mann - Reason: Patient/family refused - Comment: r/t nausea)1134 (Given - Provider: Gayla Piña RN)1834 (Given - Provider: Gayla Piña RN)2329 (Given - Provider: Griselda Moody RN) 0505 (Given - Provider: Griselda Moody RN)1218 (Not Given - Provider: Brooke Shook RN - Reason: Patient/family refused)1714 (Given - Provider: Brooke Shook RN) 0009 (Given - Provider: Micaela Reynaga, RN)0553 (Given - Provider: Micaela Reynaga RN)1140 (Given - Provider: Disha Villanueva) acetaminophen (Tylenol) tablet 1,000 mg (COMPLETED) 1,000 mg, Oral, Once, 1 dose, On 01/24/24 at 1345, Routine 1310 (Given - Provider: Brooke Shook RN) amitriptyline (Elavil) tablet 25 mg 25 mg, Oral, Nightly, First dose on 01/23/24 at 2100, Until Discontinued, Routine 2010 (Given - Provider: Griselda Moody RN) 2031 (Given - Provider: Micaela Reynaga RN) dicyclomine (Bentyl) capsule 10 mg 10 mg, Oral, 4 times daily, First dose on 01/25/24 at 0900, Until Discontinued, Routine 0840 (Given - Provid er: Disha Villanueva)1419 (Given - Provider: Christine Wood RN) enoxaparin (Lovenox) syringe 40 mg 40 mg, Subcutaneous, Daily, First dose on 01/24/24 at 1715, Until Discontinued, Routine 1714 (Not Given - Provider: Brooke Shook RN - Reason: Patient/family refused) 0839 (Not Given - Provider: Disha Villanueva - Reason: Patient/family refused) folic acid (Folvite) tablet 1 mg 1 mg, Oral, Daily, First dose on Thu01/22/24 at 2230, Until Discontinued, Routine 1136 (Given - Provider: Gayla Piña RN) 0805 (Given - Provider: Brooke Shook RN) 0840 (Given - Provider: Disha Villanueva) gi cocktail oral solution 30 mL (COMPLETED) 30 mL, Oral, Once, 1 dose, On 01/23/24 at 1930, Routine 1847 (Given - Provider: Gayla Piña RN) gi cocktail oral solution 30 mL (COMPLETED) 30 mL, Oral, Once, 1 dose, On 01/24/24 at 1345, Routine 1311 (Given - Provider: Brooke Shook RN) HYDROmorphone (Dilaudid) injection 0.25 mg (COMPLETED) 0.25 mg, Intravenous, Once, 1 dose, On 01/24/24 at 2330, Routine 2238 (Given - Provider: Micaela Reynaga, CHANDNI) HYDROmorphone (Dilaudid) injection 0.5 mg (COMPLETED) 0.5 mg, Intravenous, Once, 1 dose, On 01/23/24 at 0245, STAT 0154 (Given - Provider: Adela Mann) HYDROmorphone (Dilaudid) injection 0.5 mg (COMPLETED) 0.5 mg, Intravenous, Once, 1 dose, On 01/23/24 at 0400, Routine 0341 (Given - Provider: Adela Mann) HYDROmorphone (Dilaudid) injection 0.5 mg (COMPLETED) 0.5 mg, Intravenous, Once, 1 dose, On 01/23/24 at 2315, Routine 2226 (Given - Provider: Griselda Moody RN) HYDROmorphone (Dilaudid) injection 1 mg (COMPLETED) 1 mg, Intravenous, Once, 1 dose, On 01/23/24 at 1215, Routine 1134 (Given - Provider: Gayla Piña, CHANDNI) lidocaine (Lidoderm) 5 % patch 1 patch 1 patch, Apply externally, Every 24 hours, First dose on Thu01/25/24 at 0830, Until Discontinued, Administer over 12 Hours, Routine 0839 (Medication Applied - Provider: Disha Villanueva)1505 (Due: Medication Removed - Provider: Automatic Discharge Provider - Comment: Time automatically adjusted from order being discontinued) oxyCODONE (Roxicodone) immediate release tablet 10 mg 10 mg, Oral, Every 6 hours, 8 doses, First dose (after last modification) on 01/24/24 at 1500, Last dose on Thu01/26/24 at 0900, Routine 1405 (Given - Provider: Brooke Shook, CHANDNI)2032 (Given - Provider: Micaela Reynaga, CHANDNI) 0308 (Given - Provider: Micaela Reynaga, CHANDNI)0840 (Given - Provider: Disha Villanueva)1419 (Given - Provider: Christine Wood RN) oxyCODONE (Roxicodone) immediate release tablet 2.5 mg (COMPLETED) 2.5 mg, Oral, Once, 1 dose, On 01/24/24 at 1345, Routine 1309 (Given - Provider: Brooke Shook RN) oxyCODONE (Roxicodone) immediate release tablet 7.5 mg (CANCELED) 7.5 mg, Oral, Every 6 hours, 6 doses, First dose (after last modification) on 01/23/24 at 1500, Last dose on 01/24/24 at 2100, Routine 1446 (Given - Provider: Gayla Piña RN)2010 (Given - Provider: Griselda Moody RN) 334 (Given - Provider: Griselda Moody RN)804 (Given - Provider: Brooke Shook RN) pantoprazole (Protonix) EC tablet 40 mg 40 mg, Oral, Daily, First dose on Thu01/22/24 at 2150, Until Discontinued, Routine 1135 (Given - Provider: Gayla Piña RN) 08 (Given - Provider: Brooke Shook RN) 0840 (Given - Provider: Disha Villanueva) polyethylene glycol (Miralax) packet 17 g 17 g, Oral, Daily, First dose on Thu01/22/24 at 2150, Until Discontinued, Routine 1136 (Given - Provider: Gayla Piña RN) 0804 (Not Given - Provider: Brooke Shook RN - Reason: Patient/family refused) 0847 (Not Given - Provider: Disha Villanueva - Reason: Patient/family refused) pregabalin (Lyrica) capsule 300 mg 300 mg, Oral, 2 times daily, First dose on Thu01/22/24 at 2150, Until Discontinued 113 (Given - Provider: Gayla Piña RN)2010 (Given - Provider: Griselda Moody RN) 804 (Given - Provider: Brooke Shook RN)2031 (Given - Provider: Micaela Reynaga, CHANDNI) 0839 (Given - Provider: Disha Villanueva) senna (Senokot) tablet 17.2 mg 17.2 mg (2 tablet), Oral, Nightly, First dose on Thu01/22/24 at 2150, Until Discontinued, Routine 2010 (Given - Provider: Griselda Moody RN) 2031 (Given - Provider: Micaela Reynaga, RN) sodium chloride 0.9 % flush 10 mL(Linked Group 1) 10 mL, Intravenous, Every 12 hours, First dose on Thu01/22/24 at 2150, Until Discontinued, Routine 1137 (Given - Provider: Gayla Piña, CHANDNI)2203 (Given - Provider: Griselda Moody, RN) 0916 (Given - Provider: Brooke Shook, CHANDNI)2053 (Given - Provider: Micaela Reynaga, CHANDNI) 0847 (Given - Provider: Disha Villanueva) sucralfate (Carafate) 1 GM/10ML suspension 1 g 1 g, Oral, 4 times daily before meals and nightly, First dose on Thu01/23/24 at 2100, Until Discontinued, Routine 2009 (Given - Provider: Griselda Moody RN) 0805 (Given - Provider: Brooke Shook, CHANDNI)1311 (Given - Provider: Brooke Shook, CHANDNI)1714 (Given - Provider: Brooke Shook, CHANDNI)2032 (Given - Provider: Micaela Reynaga RN) 0838 (Given - Provider: Disha Villanueva)1230 (Given - Provider: Christine Wood RN)1700 (Canceled Entry - Provider: Automatic Discharge Provider - Comment: Automatically canceled at discontinue of medication order) thiamine (Vitamin B-1) tablet 100 mg 100 mg, Oral, Daily, First dose on Thu01/25/24 at 0900, Until Discontinued, Routine 0839 (Given - Provid er: Disha Villanueva) thiamine (Vitamin B-1) tablet 200 mg () 200 mg, Oral, Every 8 hours, 6 doses, First dose on Thu01/22/24 at 2230, Last dose on Thu01/24/24 at 1430, STAT 0617 (Not Given - Provider: Adela Mann - Reason: Patient/family refused - Comment: pt refused r/t nausea)1446 (Given - Provider: Gayla Piña, CHANDNI)2210 (Given - Provider: Griselda Moody RN) 0532 (Given - Provider: Griselda Moody RN)0804 (Given - Provider: Brooke Shook, CHANDNI)1404 (Given - Provider: Brooke Shook, CHANDNI) PRN Medication Order 01/23/2024 01/24/2024 01/25/2024 hydrOXYzine pamoate (Vistaril) capsule 25 mg 25 mg, Oral, Every 6 hours PRN, Starting on Thu01/22/24 at 2149, Until 01/25/24 at 1705, Routine, anxiety 0524 (Given - Provider: Adela Mann) 1715 (Not Given - Provider: Brooke Shook, CHANDNI - Reason: Patient/family refused) 0840 (Given - Provider: Disha Villanueva) melatonin tablet 3 mg 3 mg, Oral, Nightly PRN, Starting on Thu01/22/24 at 2116, Until 01/25/24 at 1705, Routine, sleep morphine PF 2 mg (CANCELED) 2 mg, Intravenous, Every 3 hours PRN, Starting on 01/23/24 at 1320, Until 01/24/24 at 1023, Routine, moderate pain, breakthrough pain after oxy 1658 (Given - Provider: Gayla Piña RN)2007 (Given - Provider: Griselda Moody RN) 0249 (Given - Provider: Griselda Moody RN)0553 (Given - Provider: Griselda Moody, RN)0915 (Given - Provider: Brooke Shook, RN) ondansetron (Zofran) 4 MG/5ML solution 4 mg(Linked Group 2) 4 mg, Oral, Every 6 hours PRN, Starting on Thu01/22/24 at 2121, Until 01/25/24 at 1705, Routine, nausea, vomiting 0524 (See Alternative - Provider: Adela Mann)1134 (See Alternative - Provider: Gayla Piña RN)1658 (See Alternative - Provider: Gayla Piña RN) 0805 (See Alternative - Provider: Brooke Shook, CHANDNI)1405 (See Alternative - Provider: Brooke Shook, CHANDNI)2042 (See Alternative - Provider: Micaela Reynaga, CHANDNI) 0308 (See Alternative - Provider: Micaela Reynaga, RN) ondansetron (Zofran) injection 4 mg(Linked Group 2) 4 mg, Intravenous, Every 6 hours PRN, Starting on Thu01/22/24 at 2121, Until 01/25/24 at 1705, Routine, vomiting, nausea 0524 (See Alternative - Provider: Adela Mann)1134 (Given - Provider: Gayla Piña RN)1658 (Given - Provider: Gayla Piña RN) 0805 (Given - Provider: Brooke Shook RN)1405 (Given - Provider: Brooke Shook RN)2042 (Given - Provider: Micaela Reynaga RN) 0308 (Given - Provider: Micaela Reynaga RN) ondansetron ODT (Zofran-ODT) disintegrating tablet 4 mg(Linked Group 2) 4 mg, Oral, Every 6 hours PRN, Starting on Thu01/22/24 at 2121, Until Thu01/25/24 at 1705, Routine, nausea, vomiting 0524 (Given - Provider: Adela Mann)1134 (See Alternative - Provider: Gayla Piña RN)1658 (See Alternative - Provider: Gayla Piña RN) 0805 (See Alternative - Provider: Brooke Shook RN)1405 (See Alternative - Provider: Brooke Shook RN)2042 (See Alternative - Provider: Micaela Reynaga RN) 0308 (See Alternative - Provider: Micaela Reynaga RN) oxyCODONE (Roxicodone) immediate release tablet 5 mg (CANCELED) 5 mg, Oral, Every 6 hours PRN, 8 doses, Starting on Thu01/22/24 at 2148, Until Thu01/23/24 at 1320, Routine, moderate pain, severe pain 0528 (Given - Provider: Adela Mann) sodium chloride 0.9 % flush 10 mL(Linked Group 1) 10 mL, Intravenous, As needed, Starting on Thu01/22/24 at 2114, Until Thu01/25/24 at 1705, Routine, line care Linked Groups Order Group 1: Insert peripheral IV (COMPLETED) Once, On Thu01/22/24 at 211, For 1 occurrence And Saline lock IV (COMPLETED) Once, On Thu01/22/24 at 211, For 1 occurrence And sodium chloride 0.9 % flush 10 mLJump to med 10 mL, Intravenous, Every 12 hours, First dose on Thu01/22/24 at 2150, Until Discontinued, Routine And sodium chloride 0.9 % flush 10 mLJump to med 10 mL, Intravenous, As needed, Starting on Thu01/22/24 at 2114, Until Thu01/25/24 at 1705, Routine, line care Group 2: ondansetron ODT (Zofran-ODT) disintegrating tablet 4 mgJump to med 4 mg, Oral, Every 6 hours PRN, Starting on Thu01/22/24 at 2121, Until Thu01/25/24 at 1705, Routine, nausea, vomiting Or ondansetron (Zofran) injection 4 mgJump to med 4 mg, Intravenous, Every 6 hours PRN, Starting on Thu01/22/24 at 2121, Until Thu01/25/24 at 1705, Routine, vomiting, nausea Or ondansetron (Zofran) 4 MG/5ML solution 4 mgJump to med 4 mg, Oral, Every 6 hours PRN, Starting on Thu01/22/24 at 2121, Until Thu01/25/24 at 1705, Routine, nausea, vomiting documented in this encounter Additional Health Concerns Infection Onset Date Last Indicated Resolved Time COVID-19 Rule-Out 01/22/2024 01/22/2024 01/22/2024 9:53 PM EST Respiratory Rule-Out 01/22/2024 01/22/2024 10:59 PM EST Assessment Noted Time A fall risk assessment has been complete d for the patient 11/21/2020 2:30 PM EDT A Body Mass Index follow-up plan has been documented for the patient 01/25/2024 2:48 PM EST documented as of this encounter Care Teams Hand Straightener Relationship Specialty Start Date End Date Lisa Foote APRN [address] [place], [place] [id number] PCP - General 10/23/23 documented as of this encounter
--- OUTSIDE RECORDS SUMMARY | 2024-02-03 15:07 | XMS_ITS | Encounter Summary ---
Author Organization Healthcare Address [address] [place] [address] Care Team Providers Care Medicare Contact Specialist Name Role Phone QamarLisa mckeon Beatriz ORELLANA Primary Care Provider [phone] Cally Tilley LPN Unavailable Unavailable Encounter Details Date Type Department Care Team (Latest Contact Info) Description 12/26/2023 Travel Social History Tobacco Use Types Packs/Day Years Used Date Smoking Tobacco: Every Day Cigarettes 0.5 20 Smokeless Tobacco: Never Alcohol Use Standard Drinks/Week Comments Not Currently [...] place to sleep or slept in a alf (including now)? 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 0 10/24/2023 CAGE Questionnaire Score 0 024 Utilities Answer Date Recorded In the past 12 months has th e [employer], gas, oil, or water company threatened to [...] plan has been documented for the patient 10/28/2023 1:22 PM EDT documented as of this encounter Care Teams Medicare Contact Specialist Relationship Specialty Start Date End Date Lisa Foote APRN [address] [place] [address] PCP - General 10/23/23 Cally Tilley LPN VALUE-BASED [place] [address] TCM Nurse 12/03/23 01/01/24 documented as of this encounter
--- OUTSIDE RECORDS SUMMARY | 2024-02-03 15:07 | XMS_ITS | Encounter Summary ---
Author Organization [facility] Address [address] [place] [address] Care Team Providers Care Cost Accounting Analyst Name Role Phone Lisa Foote Beatriz ORELLANA Primary Care Provider Encounter Details Date Type Department Care Team (Latest Contact Info) Description 01/22/2024 Travel Social History Tobacco Use Types Packs/Day [...] place to sleep or slept in a group home (including now)? 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
--- OUTSIDE RECORDS SUMMARY | 2024-02-03 15:07 | XMS_ITS | Encounter Summary ---
Author Organization Healthcare Address [address] [place] [address] Care Team Providers Care Book Editor Name Role Phone Lisa Foote Beatriz ORELLANA Primary Care Provider Cally Tilley LPN Unavailable Unavailable Reason for Visit * Reason Comments Abdominal Pain Encounter Details Date Type Department Care Team (Late st Contact Info) Description 12/26/2023 9:30 AM EDT - 12/26/2023 1:02 PM EDT Emergency [facility] [address] [place] [address] Nausea and vomiting, unspecified vomiting type (Primary Dx); Left upper quadrant abdominal pain Discharge Disposition: Home or Self [...] place to sleep or slept in a [facility] (including now)? No 10/27/2023 CAGE ASSESSMENT Answer [...] drink first t caleb in the morning (EYE-SAP FICO ARCHITECT) to steady your nerves or to get [...] Sign Reading Time Taken Comments Blood Pressure 136/93 12/26/2023 1:00 PM EDT Pulse 91 12/26/2023 1:00 PM EDT Temperature 36.8 ??C (98.2 ??F) 12/26/2023 1:00 PM ED T Respiratory Rate 20 12/26/2023 9:30 AM EDT Oxygen Saturation 97% 12/26/2023 1:00 PM EDT Inhaled Oxygen Concentration - - Weight - [...] Assessment Author No 04/14/2023 2:20 PM Laureen Carirllo RN * Because of a physical, mental, [...] * Discharge Instructions* Mireya Vo PA - 12/26/2023 12:48 PM EDT Follow clear fluid diet for 36-48h and advance as tolerated. Stay well hydrated. Continue to avoid alcohol as your birthday drink last weekend appears to have set off your GI symptoms this week. Continue home meds. Keep GI appt this month, follow up with PCP. Return to ER if develop fever, loss of consciousness, stop making urine or feces, uncontrollable vomiting, acutely bloody vomit/stool, worsening symptoms or any concern documented in this encounter Medications at Time of Discharge pantoprazole (Protonix) 40 MG EC tablet Take 1 tablet (40 mg) by mouth 1 (one) time each day. Do not crush, chew, or split. ondansetron ODT (Zofran-ODT) 4 MG disintegrating tablet Take 1 tablet (4 mg) by mouth every 6 (six) hours if needed for nausea. 12 tablet 4 01/25/20 24 acetaminophen (Tylenol) 325 MG tablet Take 2 tablets (650 mg) by mouth every 6 (six) hours if needed for pain. Under [place] law, monthly prescriptions (30 days) can be refilled at 25 days and three-month prescriptions (90 days) at 80 days. Please contact the insurance company with questions if refills are denied. 100 tablet 4 01/22/20 24 DULoxetine (Cymbalta) [address] capsule Take 1 capsule (60 mg) by mouth 1 (one) time each day. Do not crush or chew. 7 capsule 4 01/22/20 24 ketorolac (Toradol) 10 MG tablet Take 1 tablet (10 mg) by mouth every 6 (six) hours if needed for moderate pain. 20 tablet 4 01/22/20 24 lidocaine (Lidoderm) 5 % patch Apply 2 patches topically 1 (one) time each day at the same time over 12 hours. Remove & discard patch within 12 hours or as directed by MD. 14 patch 4 01/22/20 24 naloxone (Narcan) 4 mg/0.1 mL nasal spray 1. Give 1 spray in nostril for no/slow breathing or cannot wake after opioid use 2. Call 911 3. Repeat in other nostril if symptoms continue 1 each 4 01/22/20 24 ondansetron (Zofran) 4 MG tablet Take 1 tablet (4 mg) by mouth every 6 (six) hours if needed for nausea or vomiting. 20 tablet 4 01/22/20 24 ondansetron ODT (Zofran-ODT) 4 MG disintegrating tablet Take 1 tablet (4 mg) by mouth every 6 (six) hours if needed for nausea. 12 tablet 4 01/22/20 24 ondansetron ODT (Zofran-ODT) 4 MG disintegrating tablet Take 1 tablet (4 mg) by mouth every 6 (six) hours if needed for nausea. 12 tablet 4 01/22/20 24 oxyCODONE (Roxicodone) 10 MG immediate release tablet Take 1 tablet (10 mg) by mouth every 4 (four) hours if needed for severe pain. 30 tablet 4 01/22/20 24 pancrelipase, Vwm-Uqgm-Jjyj, (Creon) 21076-26049 units capsule Take 2 capsules by mouth 3 (three) times a day with meals. 40 capsule 4 01/22/20 24 polyethylene glycol (Miralax) 17 g packet Take 17 g by mouth 1 (one) time each day. 7 packet 4 01/22/20 24 pregabalin (Lyrica) 200 MG capsule Take 1 capsule (200 mg) by mouth 2 (two) times a day. 10 capsule 4 01/22/20 24 promethazine (Phenergan) 25 MG tablet Take 1 tablet (25 mg) by mouth every 8 (eight) hours if needed for nausea or vomiting. 21 tablet 4 01/31/20 24 senna (Senokot) 8.6 MG tablet Take 1 tablet (8.6 mg) by mouth every night. 7 tablet 0901/22/20 24 documented as of this encounter Miscellaneous Notes * Mireya Dunaway, DANIA - 12/26/2023 12:49 PM EDT Images from the original note were not included. [id number] Vomiting (adult) Vomiting is when stomach contents [...] soap and clean, running water or alcohol-based pulmonary fellow to keep from spreading the infection to [...] symptoms Last Reviewed Date: 2023 00:00:00 ?? [id number] [employer]. All rights reserved. This information is not intended as a substitute for professional medical care. Always follow your healthcare professional's instructions. * ED Provider Notes - Mireya Vo PA - 12/26/2023 9:22 AM EDT Images from the original note were not included. - HPI Chief Complaint Patient presents with Abdominal Pain Lila Mcnally is a 38 y.o. female well known to the ER with PMH pancreatitis, fibromyalgia, GERD, anxiety, depression, EtOH abuse, anxiety who presents to the Emergency Department with complaints of Abdominal Pain. Reports she vomited in the car after being discharged. Says ran out of her Lyricaand can't yet get a refill and no longer has narcotics prescribed to her. Reports GI appt in a few w eeks. Says taking her Creon, PPI, and has bentyl, carafate, zofran at home. Says has her baseline associated LUQ pain, nausea, nonbloody vomiting and admits that she had some EtOH last weekend for her birthday prior to her symptoms starting earlier this week. Says had some diarrhea a few days ago but it has since resolved. Denies fever, injury, , constipation, melena, BRBPR, hematemesis, sx, EtOH withdrawal. Patient History Past Medical History: Diagnosis Date Anxiety Arthritis Depression Fibromyalgia Gastric erosions 04/19/2021 GERD (gastroesophageal reflux disease) Hypertension Intentional overdose ([facility] 12/20/2021 Nicotine dependence Obesity Pancreatitis [...] Never Used Substance Use Topics Alcohol use: Not Currently Comment: was drinking heavily x 7yrs up [...] acute dystonic reaction treated with diphenhydramine Tramadol Rash and Dizziness Patient described previously experiencing panic attacks too. Physical Exam ED Triage Vitals [12/26/23 0930] Temp Heart Rate Resp BP 36.6 ??C (97.8 ??F) 108 20 (!) 162/95 SpO2 Temp Source Heart Rate Source Patient Position 99 % Oral -- Sitting BP Location FiO2 (%) Right arm -- Physical Exam Constitutional: General: She is not in acute distress. Appearance: She is well-developed. She is not ill-appearing, toxic-appearing or diaphoretic. HENT: Head: Normocephalic and atraumatic. Eyes: General: No scleral icterus. Cardiovascular: Comments: Mildly tachy in triage but RRR upon bedside exam Pulmonary: Effort: Pulmonary effort is normal. Abdominal: General: Abdomen is flat. Bowel sounds are normal. Palpations: Abdomen is soft. Tenderness: There is abdominal tenderness in the left upper quadrant. There is no guarding or rebound. Skin: General: Skin is warm and dry. Capillary Refill: Capillary refill takes less than 2 seconds. Coloration: Skin is not jaundiced. Neurological: General: No focal deficit present. Mental Status: She is alert and oriented to person, place, and time. Psychiatric: Mood and Affect: Mood normal. Behavior: Behavior normal. Jo Coma Scale Score: 15 ED Course & MDM - Assessment: 38 y.o. female presents to ED with complaint of N/V, abdominal pain. It should be noted that the chronic conditions includes chronic abdominal pain, pancreatitis, which currently is not at goal therapy. This complicates the clinical picture because it Comorbidities: increases the risk for morbidityand mortality. Per chart review, patient was discharged from [facility] ER 25 min prior to checking into [facility] ER and received zofran x2, oxycodone, dilaudid, GI cocktail and dex, and was prescribed zofran. Labs from 4h ago showed no leukocytosis, no JYOTSNA, no hypoglycemia, no biliary obstructive pattern, no hypokalemia, lipase 41, lactate within normal limits, neg test. No need to repeat labs at this juncture. Differential Diagnosis: pancreatitis, anxiety, cyclical vomiting, GERD, PUD No indication of acute EtOH nor opioid withdrawal. Unfortunately IV bolus are on national shortage,after we manage her vomiting, we will push PO clear fluids. Received IM versed, small dose IM dilaudid, rectal phenergan and missed home dose of lyrica. PassedPO clear fluids challenge. In order to fully explore the differential diagnosis the following treatments and tests were ordered: ED Medication Administration from 12/26/2023 0922 to 12/26/2023 1325 Date/Time Order Dose Route Action 12/26/2023 1032 EDT midazolam (Versed) 10 MG/2ML injection 2.5 mg 2.5 mg Intramuscular Given 12/26/2023 1154 EDT HYDROmorphone (Dilaudid) injection 0.25 mg 0.25 mg Intramuscular Given 12/26/2023 1155 EDT pregabalin (Lyrica) capsule 300 mg 300 mg Oral Given 12/26/2023 1155 EDT promethazine (Phenergan) suppository 12.5 mg 12.5 mg Rectal Given 12/26/2023 1201 EDT HYDROmorphone (Dilaudid) injection 0.25 mg 0.25 mg Intravenous Not Given Clinical Impressions as of 12/26/23 1325 Nausea and vomiting, unspecified vomiting type Left upper quadrant abdominal pain Social Determinates of Health Risks (including Economic Stability, Education and level of understanding, Healthcare access and quality and concerning social factors): Acute or chronic drug and alcohol use and Lives far away Patient to continue home meds, keep her upcoming GI appt, continue to refrain from EtOH, follow clear fluid diet for 36h and then advance as tolerated. She is agreeable with plan and given return precautions. Ultimately, this patient was Was discharged Home (Discharge) The primary encounter diagnosis was Nausea and vomiting, unspecified vomiting type. A diagnosis of Left upper quadrant abdominal pain was also pertinent to this visit. . Patient was counseled on the diagnoses. Discharge medications if any are listed below. Listed medications are thoughtbe either curative for listed diagnoses or will help control ongoing symptoms. Patient is requestedto follow up with Patient's Primary Care Provider and GI in order to obtain routine follow-up. Instructions on follow up as well as precautions to return to the ER provided verbally by the EM provider, as well as written in patients discharge education packet. ED Prescriptions None Discharge Instructions Follow clear fluid diet for 36-48h and advance as tolerated. Stay well hydrated. Continue to avoid alcohol as your birthday drink last weekend appears to have set off your GI symptoms this week. Continue home meds. Keep GI appt this month, follow up with PCP. Return to ER if develop fever, loss of consciousness, stop making urine or feces, uncontrollable vomiting, acutely bloody vomit/stool, worsening symptoms or any concern Disposition Discharge AVS (Printed 12/26/2023) - Mireya Vo PA 12/26/23 1325 Cosigned by Kayla Ramos MD at 12/26/2023 1:33 PM EDT Associated attestation - Kayla Ramos MD - 12/26/2023 1:33 PM EDT The patient was seen only by Advanced Practice Provider (AJAY), and care was reviewed with me. * ED Triage Notes - Kathy Arango RN - 12/26/2023 9:22 AM EDT Complains of abdominal pain/vomiting. Says she was discharged from [facility] approx 30minutes ago. Says she vomited in the car and was told to come back if she began vomiting again documented in this encounter Plan of Treatment Not on file documented as of this encounter Visit Diagnoses Diagnosis Nausea and vomiting, unspecified vomiting type- Primary Left upper quadrant abdominal pain documented in this encounter Administered Medications Inactive Administered Medications - up to 3 most recent administrations Medication Order MAR Action Action Date Dose Rate Site HYDROmorphone (Dilaudid) injection 0.25 mg 0.25 mg, Intramuscular, Once, 1 dose, On 12/26/23 at 1150, STAT Given 12/26/2023 11:54 AM EDT 0.25 mg Right Deltoid midazolam (Versed) 10 MG/2ML injection 2.5 mg 2.5 mg, Intramuscular, Once, 1 dose, On 12/26/23 at 0945, STAT Given 12/26/2023 10:32 AM EDT 2.5 mg Left Deltoid pregabalin (Lyrica) capsule 300 mg 300 mg, Oral, Once, 1 dose, On 12/26/23 at 1110, STAT Given 12/26/2023 11:55 AM EDT 300 mg promethazine (Phenergan) suppository 12.5 mg 12.5 mg, Rectal, Every 6 hours PRN, Starting on 12/26/23 at 0943, Until 12/26/23 at 1502, Routine, nausea, vomiting Given 12/26/2023 11:55 AM EDT 12.5 mg documented in this encounter Active and Recently Administered Medications Times are shown in EDT. Scheduled Medication Order 12/24/2023 12/25/2023 12/26/2023 HYDROmorphone (Dilaudid) injection 0.25 mg (COMPLETED) 0.25 mg, Intramuscular, Once, 1 dose, On 12/26/23 at 1150, STAT 1154 (Given - Provid er: Mireya Betancur RN) midazolam (Versed) 10 MG/2ML injection 2.5 mg (COMPLETED) 2.5 mg, Intramuscular, Once, 1 dose, On 12/26/23 at 0945, STAT 1032 (Given - Provid er: Alexandria Hernandez RN) pregabalin (Lyrica) capsule 300 mg (COMPLETED) 300 mg, Oral, Once, 1 dose, On 12/26/23 at 1110, STAT 1155 (Given - Provid er: Mireya Betancur RN) PRN Medication Order 12/24/2023 12/25/202312/26/2023 promethazine (Phenergan) suppository 12.5 mg 12.5 mg, Rectal, Every 6 hours PRN, Starting on 12/26/23 at 0943, Until 12/26/23 at 1502, Routine, nausea, vomiting 1155 (Given - Provid er: Mireya Betancur RN) documented in this encounter Additional Health Concerns Assessment Noted Time A fall risk assessment has been complete d for the patient 11/21/2020 2:30 PM EDT A Body Mass Index follow-up plan has been documented for the patient 10/28/2023 1:22 PM EDT documented as of this encounter Care Teams Book Editor Relationship Specialty Start Date End Date Lisa Foote APRN [address] [place], [place] [phone] PCP - General 10/23/23 Cally Tilley LPN VALUE-BASED [place] [address] TCM Nurse 12/03/23 01/01/24 documented as of this encounter
--- OUTSIDE RECORDS SUMMARY | 2024-02-03 15:07 | XMS_ITS | Clinical Summary ---
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 Medications pantoprazole (Protonix) 40 MG EC tablet Take 1 tablet (40 mg) by mouth 1 (one) time each day. Do not crush, chew, or split. Active pregabalin (Lyrica) 300 MG capsule Take 1 capsule (300 mg) by mouth 2 (two) times a day. Active acetaminophen (Tylenol) 325 MG tablet Take 2 tablets (650 mg) by mouth 3 (three) times a day. And As Needed. Active Senexon-S 8.6-50 MG tablet Take 1 tablet by mouth if needed for constipation. 30 tablet 2 024 Active dicyclomine (Bentyl) 10 MG capsule Take 1 capsule (10 mg) by mouth 4 (four) times a day. 120 capsule 2 024 Active lidocaine (Lidoderm) 5 % patch Apply 1 patch topically 1 (one) time each day at the same time over 12 hours. Remove & discard patch within 12 hours or as directed by MD. 9 patch Active oxyCODONE (Roxicodone) 10 MG immediate release tablet Take 1 tablet (10 mg) by mouth every 6 (six) hours for 10 days. 40 tablet 2023 Active naloxone (Narcan) 4 mg/0.1 mL nasal spray 1. Give 1 spray in nostril for no/slow breathing or cannot wake after opioid use 2. Call 911 3. Repeat in other nostril if symptoms continue 1 each Active sucralfate (Carafate) 1 GM/10ML suspension Take 10 mL (1 g) by mouth 4 (four) times a day (before meals and nightly). 473 mL Active amitriptyline (Elavil) 25 MG tablet Take 1 tablet (25 mg) by mouth every night. 60 tablet Active promethazine (Phenergan) 12.5 MG suppository Insert 1 suppository (12.5 mg) into the rectum every 6 (six) hours if needed for nausea or vomiting for up to 7 days. 12 each 024 2023 Active promethazine (Phenergan) 25 MG tablet Take 1 tablet (25 mg) by mouth every 8 (eight) hours if needed for nausea or vomiting. 21 tablet 2023 Discontinued(E xpired) acetaminophen (Tylenol) 325 MG tablet Take 2 tablets (650 mg) by mouth every 6 (six) hours if needed for pain. Under [place] law, monthly prescriptions (30 days) can be refilled at 25 days and three-month prescriptions (90 days) at 80 days. Please contact the insurance company with questions if refills are denied. 100 tablet 2023 Discontinued(E ntered in Error) pregabalin (Lyrica) 200 MG capsule Take 1 capsule (200 mg) by mouth 2 (two) times a day. 10 capsule 2023 Discontinued(E ntered in Error) DULoxetine (Cymbalta) [address] capsule Take 1 capsule (60 mg) by mouth 1 (one) time each day. Do not crush or chew. 7 capsule 2023 Discontinued(E ntered in Error) lidocaine (Lidoderm) 5 % patch Apply 2 patches topically 1 (one) time each day at the same time over 12 hours. Remove & discard patch within 12 hours or as directed by MD. 14 patch 2023 Discontinued oxyCODONE (Roxicodone) 10 MG immediate release tablet Take 1 tablet (10 mg) by mouth every 4 (four) hours if needed for severe pain. 30 tablet 2023 Discontinued(E ntered in Error) naloxone (Narcan) 4 mg/0.1 mL nasal spray 1. Give 1 spray in nostril for no/slow breathing or cannot wake after opioid use 2. Call 911 3. Repeat in other nostril if symptoms continue 1 each 2023 Discontinued(E ntered in Error) pancrelipase, Vxh-Kdre-Pbuf, (Creon) 22948-41133 units capsule Take 2 capsules by mouth 3 (three) times a day with meals. 40 capsule 2023 Discontinued(E ntered in Error) polyethylene glycol (Miralax) 17 g packet Take 17 g by mouth 1 (one) time each day. 7 packet 2023 Discontinued(E ntered in Error) senna (Senokot) 8.6 MG tablet Take 1 tablet (8.6 mg) by mouth every night. 7 tablet 2023 Discontinued(E ntered in Error) ondansetron (Zofran) 4 MG tablet Take 1 tablet (4 mg) by mouth every 6 (six) hours if needed for nausea or vomiting. 20 tablet 2023 Discontinued(E ntered in Error) ketorolac (Toradol) 10 MG tablet Take 1 tablet (10 mg) by mouth every 6 (six) hours if needed for moderate pain. 20 tablet 2023 Discontinued(E ntered in Error) ondansetron ODT (Zofran-ODT) 4 MG disintegrating tablet Take 1 tablet (4 mg) by mouth every 6 (six) hours if needed for nausea. 12 tablet 024 2023 Discontinued(E ntered in Error) ondansetron ODT (Zofran-ODT) 4 MG disintegrating tablet Take 1 tablet (4 mg) by mouth every 6 (six) hours if needed for nausea. 12 tablet 024 2023 Discontinued(E ntered in Error) ondansetron ODT (Zofran-ODT) 4 MG disintegrating tablet Take 1 tablet (4 mg) by mouth every 6 (six) hours if needed for nausea. 12 tablet 024 2023 Senexon-S 8.6-50 MG tablet Take 1 tablet by mouth 1 (one) time each day. 2023 Discontinued sodium chloride ([place]) 0.65 % nasal spray Administer 1 spray into affected nostril(s) if needed. 2023 Discontinued(S top Taking at Discharge) Active Problems Problem Noted Date Diagnosed Date History of acute pancreatitis 04/14/2023 Left upper quadrant abdominal pain 04/11/2023 Diverticulosis 03/26/2023 Gastroenteritis 03/26/2023 Neuropathy 03/26/2023 Overactive bladder 03/26/2023 Class III obesity with body mass index (BMI) of 40.0 or higher 03/25/2023 Alcohol-induced chronic pancreatitis 02/24/2023 Hyperglycemia 02/20/2023 Acute on chronic pancreatitis 12/27/2022 Blood alcohol level of 120-199 mg/100 ml 023 Irritable bowel syndrome without diarrhea 2022 Osteoarthritis 11/07/2022 Scabies 11/03/2022 Colitis 10/26/2022 Malingering 10/16/2022 Atelectasis 10/01/2022 Marijuana use 09/26/2022 Hypertension 09/14/2022 Nicotine dependence 09/14/2022 Depression 09/14/2022 Elevated blood-pressure read ing, without diagnosis of hypertension 07/28/2022 Poisoning by other drugs, me dicaments and biological substances, accidental (unintentional), initial encounter 07/28/2022 Elevation of levels of liver transaminase levels 07/20/2022 Candidiasis of mouth 07/01/2022 Polyneuropathy, unspecified 05/27/2022 Intractable nausea and vomiting 04/30/2021 Chronic pain 04/26/2021 Opiate dependence 04/26/2021 Obesity 03/23/2021 GERD (gastroesophageal reflux disease) Abdominal pain, epigastric 11/16/2020 Anxiety 10/21/2020 Fibromyalgia 10/21/2020 Resolved Problems Problem Noted Date Diagnosed Date Resolved Date Epigastric pain 01/22/2024 01/25/2024 Chronic pancreatitis, unspec ified pancreatitis type 11/11/2022 11/18/2022 Diarrhea of presumed infectious origin 09/26/2022 11/18/2022 Atypical pneumonia 09/20/2022 Acute on chronic pancreatitis 07/19/2022 11/21/2022 Abdominal pain 03/20/2022 03/26/2022 Suicidal ideation 12/20/2021 09/14/2022 Intentional overdose 12/20/2021 023 Intractable pain 04/20/2021 04/20/2021 Gastric erosions 04/19/2021 11/18/2022 Other chronic pancreatitis 04/10/2021 0 09/14/2022 Lice infestation 03/31/2021 09/14/2022 Intractable left upper quadr ant abdominal pain 02/04/2021 02/10/2021 Choledocholithiasis 11/30/2020 11/19/19 Good tolerance for activity 11/30/2020 09/14/2022 Recurrent pancreatitis 11/10/202009/14 Severe protein-calorie malnutrition 10/26/2020 11/06/2020 Coffee ground emesis 10/22/2020 021 Class 1 obesity in adult 10/21/2020 Bipolar depression 10/21/2020 Tobacco abuse 10/21/2020 09/14/2022 Epigastric pain 10/21/2020 11/18/2022 Duodenal ulcer 10/21/2020 11/18/2022 Encounters Date Type Department Care Team Description 01/31/2024 4:44 PM EST - 01/31/2024 7:14 PM EST [facility] Emergency Department [address] [place] [address] Nausea and vomiting, unspecified vomiting type (Primary Dx); LUQ abdominal pain Discharge Disposition: Home or Self Care 01/31/2024 Travel 01/23/2024 Travel 01/22/2024 3:07 PM EST - 01/25/2024 3:05 PM EST [facility] Inpatient [address] [place] [address] Nas Reynaga MD Hall, MD Zhang Trevino Fatima Z, MD Gottschalk, Mary Lantigua MD Abdominal pain, unspecified abdominal location (Primary Dx) Discharge Disposition: Home or Self Care 01/22/2024 Travel 12/26/2023 9:30 AM EDT - 12/26/2023 1:02 PM EDT [facility] Emergency Department [address] [place] [phone] Nausea and vomiting, unspecified vomiting type (Primary Dx); Left upper quadrant abdominal pain Discharge Disposition: Home or Self Care 12/26/2023 3:27 AM EDT - 12/26/2023 8:52 AM EDT [facility] Emergency Department [address] [place] [phone] Mariel Sorto MD Martin, Julia E, MD Chronic abdominal pain (Primary Dx) Discharge Disposition: Home or Self Care 12/26/2023 Travel 12/22/2023 3:25 AM EDT - 12/22/2023 5:05 AM EDT [facility] Emergency Department [address] [place] [address] Kalpesh Jimenes MD Abdominal pain, generalized (Primary Dx) Discharge Disposition: Home or Self Care 12/22/2023 Travel 12/16/2023 7:16 AM EDT - 12/16/2023 11:17 AM EDT [facility] [address] [place] [phone] George Tang MD Epigastric pain (Primary Dx); Nausea vomiting and diarrhea Discharge Disposition: Home or Self Care 12/16/2023 3:33 AM EDT - 12/16/2023 6:48 AM EDT Emergency [facility] S Emergency Department [address] [place] [phone] Bg Rehman DO Nausea and vomiting, unspecified vomiting type (Primary Dx); Cannabinoid hyperemesis syndrome; Generalized abdominal pain Discharge Disposition: Home or Self Care 12/16/2023 Travel 12/14/2023 8:49 AM EDT - 12/14/2023 12:30 PM EDT Emergency [facility] S Emergency Department [address] [place] [address] Kayla Ramso MD Abdominal pain, unspecified abdominal location (Primary Dx) Discharge Disposition: Home or Self Care 12/14/2023 Travel 12/07/2023 Patient Outreach POPULATION [address] Hatfull, Cally L, MEDICAL SPECIALIST TCM Call 12/04/2023 Patient Outreach POPULATION [address] Hatfull, Cally L, MEDICAL SPECIALIST 12/03/2023 Patient Outreach POPULATION [address] Hatfull, Cally L, MEDICAL SPECIALIST TCM Call 12/03/2023 Patient [place] [address] Amira Solis, MEDICAL SPECIALIST TCM Call 12/02/2023 3:37 AM EDT - 12/03/2023 2:22 AM EDT Emergency [facility] Inpatient [address] [place], [place] [phone] Robby Momin MD Dahlgren, Amy E, MD Deep, Kristy S, MD Acute on chronic pancreatitis (CMS/HCC) (Primary Dx) Discharge Disposition: Home or Self Care 12/02/2023 Travel 11/28/2023 3:46 AM EDT - 11/28/2023 9:16 AM EDT [facility] Emergency Department [address] [place], [place] [phone] George Tagn MD Stearley, Seth T, MD Epigastric pain (Primary Dx) Discharge Disposition: Home or Self Care 11/28/2023 Travel 11/26/2023 8:21 AM EDT - 11/26/2023 11:20 AM EDT Emergency [facility] Emergency Department [address] [place] [address] Carter Donis MD Generalized abdominal pain (Primary Dx) Discharge Disposition: Home or Self Care 11/26/2023 Travel 11/08/2023 12:04 PM EDT - 11/08/2023 3:13 PM EDT Emergency [facility] Emergency Department [address] [place] [address] Left upper quadrant abdominal pain (Primary Dx) Discharge Disposition: Home or Self Care 11/08/2023 Travel from Last 3 Months Immunizations Name Administration Dates Next Due Influenza, injectable, quadr ivalent, preservative free 02/05/2023,01/20/2022,12/27/2020,2019 Moderna COVID-19 Vaccine (Re d Cap) 12+ years 07/05/2020,06/11/2020 [employer] COVID-19 Vac cine (Purple Cap) 12+ 02/10/2021 Tdap 06/25/2021 Family History Medical History Relation Name Comments Coronary artery disease Father Coronary artery disease Maternal Grandfather Lung cancer Maternal Grandmother Hypertension Mother Colon cancer Other Coronary artery disease Paternal Grandfather Relation Name Status Comments Father Alive Maternal Grandfather Maternal Grandmother Mother Alive Other Alive Paternal Grandfather Social History Tobacco Use Types Packs/Day Years [...] place to sleep or slept in a snf (including now)? No 10/27/2023 Housing Stability Vital Sign Answer Dennis e Recorded In the last 12 months, was t here a time when you were not able to pay the mortgage or rent on time? No 01/25/2024 In the past 12 months, how m any times have you moved where you were living? 1 01/25/2024 At any time in the past 12 m [facility], were you homeless or living in a snf (including now)? No 01/25/2024 CAGE ASSESSMENT Answer [...] drink first t caleb in the morning (EYE-PICKLE CUTTER) to steady your nerves or to get rid of a hangover? 0 10/24/2023 CAGE Questionnaire Score 0 024 Utilities Answer Date Recorded In the past 12 months has th e [employer], gas, oil, or water [employer] threatened to shut off services in your home? No 01/25/2024 Comments No Sex and Gender Information Value Date Recorded Sex Assigned at Female 11/30/2020 9:14 AM EDT Legal Sex Female 8:12 PM EDT Gender Identity Female 11/30/2020 9:14 AM EDT Sexual Orientation Straight 11/30/2020 9: 14 AM EDT Last Filed Vital Signs Vital Sign Reading Time Taken Comments Blood Pressure 151/100 01/31/2024 7:08 PM EST Pulse 80 01/31/2024 7:08 PM EST Temperature 36.8 ??C (98.2 ??F) 01/31/2024 7:08 PM ES T Respiratory Rate 18 01/31/2024 4:43 PM EST Oxygen Saturation 97% 01/31/2024 7:08 PM EST Inhaled Oxygen Concentration - - Weight 94.8 kg (209 lb) 12/26/2023 3:26 AM EDT Height 165.1 cm (5' 5 ) 12/26/2023 3:26 AM EDT Body Mass Index 34.78 12/26/2023 3:26 AM EDT Plan of Treatment Health Maintenance Due Date Last Done Comments Dental Oral Exam 1986 Dental Prophylaxis 1986 Dental X-Ray: Bitewings 1986 Dental X-Ray: Full Mouth 1986 [facility]-Infant/Child/Adol SDOH Screenings 1986 [facility]-Pneumococcal Vaccine: Pediatrics (0 to 5 Years) and At-Risk Patients (6 to 64 Years) (1 of 2 - PCV) 1992 [facility]-Varicella Vaccines (1 of 2 - 13+ 2-dose series) 12/19/1999 [facility]-Hepatitis B Vaccines (1 of 3 - 19+ 3-dose series) 2005 [facility]-Zoster Vaccines (1 of 2) 2005 [facility]-Pap Smear 12/19/2007 [facility]-Cervical Cancer Screening 2016 [facility]-HPV/Cotest 2016 [facility]-Depression Screening 11/21/2021 11/21/2020 [id number] Vaccine ( season) 2023 02/10/2021, 07/05/2020, 06/11/2020 [facility]-Influenza Vaccine (#1) 10/25/202302/05, 01/20/2022, 12/27/2020, Additional history exists [facility]- SDOH Screenings 07/25/2024 [facility]-Adult SDOH Screenings 07/25/2024 01/25/2024 [facility]-DTaP,Tdap,and Td Vaccines (2 - Td or Tdap) 06/26/2031 06/25/2021 [facility]-RSV Vaccine: 60+ Years or (1 - 1-dose 75+ series) 2061 [facility]-HIV Screening Completed 03/07/2023, , 10/14/2021, Additional history exists [facility]-Hepatitis C Screening Completed 2023, 07/19/2022, 10/14/2021, Additional history exists [facility]-Obesity Intervention Completed 024, 10/23/2023, 04/11/2023, Additional history exists [facility]-HIB Vaccines Aged Out No longer e ligible based on patient's age to complete this topic [facility]-HPV Vaccines Aged Out No longer e ligible based on patient's age to complete this topic [facility]-Hepatitis A Vaccines Aged Out No longer eligible based on patient's age to complete this topic [facility]-IPV Vaccines Aged Out No longer e ligible based on patient's age to complete this topic [facility]-Rotavirus Vaccines Aged Out No lo nger eligible based on patient's age to complete this topic Procedures Procedure Name Priority Date/Time Associated Diagnosis Comments TEST QUALITATIVE PLASMA STAT 01/31/2024 5:22 PM EST LIPASE, PLASMA STAT 01/31/2024 5:22 PM EST COMPREHENSIVE METABOLIC PANEL, PLASMA STAT 01/31/2024 5:22 PM EST CBC WITH AUTO DIFFERENTIAL STAT 01/31/2024 5:22 PM EST SARS COV2 COVID 19/INFLUENZA A, B STAT 01/31/2024 5:22 PM EST MORPHOLOGY STAT 01/25/2024 3:47 AM EST PHOSPHORUS, PLASMA Pending Discharge 01/25/2024 3:47 AM EST MAGNESIUM, PLASMA Pending Discharge 01/25/2024 3:47 AM EST COMPREHENSIVE METABOLIC PANEL, PLASMA Pending Discharge 01/25/2024 3:47 AM EST CBC WITH AUTO DIFFERENTIAL Pending Discharge 01/25/2024 3:47 AM EST OXYCODONE CONFIRMATION,URINE Routine 01/23/2024 7:49 PM EST OPIATES, LCMSMS, URINE Routine 7:49 PM EST THC URINE CONFIRM Routine 01/23/2024 7:4 9 PM EST BENZODIAZEPINE, URINE, QUANTITATIVE Routine 01/23/2024 7:49 PM EST DRUG ABUSE SCREEN, URINE Routine 01/23/2024 7:49 PM EST XR ABDOMEN 1 VIEW Routine 01/23/2024 8:1 6 AM EST ECG ADULT STAT 01/22/2024 9:50 PM EST NASOPHARYNGEAL RESPIRATORY PANEL Routine 01/22/2024 8:50 PM EST SARS COV-2/COVID-19 BY PCR - RAPID Routine 01/22/2024 8:50 PM EST URINALYSIS MICROSCOPIC FOR UA REFLEX STAT 01/22/2024 6:36 PM EST URINE GUNTER PANEL STAT 01/22/2024 6:36 PM EST URINALYSIS WITH REFLEX MICROSCOPIC STAT 01/22/2024 6:36 PM EST URINALYSIS WITH REFLEX MICROSCOPIC STAT 01/22/2024 6:36 PM EST HEMOGLOBIN A1C Add-On 01/22/2024 3:39 PM EST PHOSPHORUS, PLASMA Add-On 01/22/2024 3: 39 PM EST MAGNESIUM, PLASMA Add-On 01/22/2024 3:3 9 PM EST C-REACTIVE PROTEIN, PLASMA Add-On 01/22/2024 3:39 PM EST PROCALCITONIN, PLASMA Add-On 01/22/2024 3:39 PM EST HCG, QUANTITATIVE STAT 01/22/2024 3:3 9 PM EST LACTATE, VENOUS STAT 01/22/2024 3:39 PM EST LIPASE, PLASMA STAT 01/22/2024 3:39 PM EST COMPREHENSIVE METABOLIC PANEL, PLASMA STAT 01/22/2024 3:39 PM EST CBC W/O DIFFERENTIAL STAT 01/22/2024 3:39 PM EST TEST QUALITATIVE PLASMA STAT 12/26/2023 4:14 AM EDT LIPASE, PLASMA STAT 12/26/2023 4:14 AM EDT LACTATE, VENOUS STAT 12/26/2023 4:14 AM EDT COMPREHENSIVE METABOLIC PANEL, PLASMA STAT 12/26/2023 4:14 AM EDT CBC WITH AUTO DIFFERENTIAL STAT 12/26/2023 4:14 AM EDT ECG ADULT STAT 12/26/2023 3:30 AM EDT EXTRA TUBE GOLD TOP Routine 12/22/2023 3 :51 AM EDT EXTRA TUBES Routine 12/22/2023 3:51 AM EDT TEST QUALITATIVE PLASMA STAT 12/22/2023 3:51 AM EDT LACTATE, VENOUS STAT 12/22/2023 3:51 AM EDT LIPASE, PLASMA STAT 12/22/2023 3:51 AM EDT MAGNESIUM, PLASMA STAT 12/22/2023 3:5 1 AM EDT COMPREHENSIVE METABOLIC PANEL, PLASMA STAT 12/22/2023 3:51 AM EDT CBC W/O DIFFERENTIAL STAT 12/22/2023 3:[address] ABDOMEN PELVIS W IV CONTRAST STAT 12/16/2023 9:24 AM EDT POCT CREATININE ISTAT UNSOLICITED RESULTS Routine 12/16/2023 8:07 AM EDT URINE GUNTER PANEL STAT 12/16/2023 5:29 AM EDT URINALYSIS WITH REFLEX MICROSCOPIC STAT 12/16/2023 5:29 AM EDT URINALYSIS WITH REFLEX MICROSCOPIC STAT 12/16/2023 5:29 AM EDT CBC WITH AUTO DIFFERENTIAL STAT 12/16/2023 4:23 AM EDT LACTATE, VENOUS STAT 12/16/2023 4:23 AM EDT LIPASE, PLASMA STAT 12/16/2023 4:23 AM EDT MAGNESIUM, PLASMA STAT 12/16/2023 4:2 3 AM EDT COMPREHENSIVE METABOLIC PANEL, PLASMA STAT 12/16/2023 4:23 AM EDT COMPREHENSIVE METABOLIC PANEL, PLASMA STAT 12/14/2023 10:34 AM EDT CBC WITH AUTO DIFFERENTIAL STAT 12/14/2023 10:34 AM EDT EXTRA TUBE URINE GUNTER Routine 12/14/2023 9:52 AM EDT URINALYSIS WITH REFLEX MICROSCOPIC STAT 12/14/2023 9:49 AM EDT TEST QUALITATIVE PLASMA STAT 12/14/2023 9:41 AM EDT BLOOD GAS PANEL, VENOUS STAT 12/14/2023 9:41 AM EDT LIPASE, PLASMA STAT 12/14/2023 9:41 AM EDT COMPREHENSIVE METABOLIC PANEL, PLASMA STAT 12/14/2023 9:[address] ABDOMEN PELVIS W IV CONTRAST STAT 12/02/2023 9:30 AM EDT URINE GUNTER PANEL STAT 12/02/2023 7:10 AM EDT URINALYSIS WITH REFLEX MICROSCOPIC STAT 12/02/2023 7:10 AM EDT URINALYSIS WITH REFLEX MICROSCOPIC STAT 12/02/2023 7:10 AM EDT LIPASE, PLASMA STAT 12/02/2023 4:34 AM EDT COMPREHENSIVE METABOLIC PANEL, PLASMA STAT 12/02/2023 4:34 AM EDT CBC WITH AUTO DIFFERENTIAL STAT 12/02/2023 4:34 AM EDT EXTRA TUBE GOLD TOP Routine 12/02/2023 4 :14 AM EDT EXTRA TUBES Routine 12/02/2023 4:14 AM EDT EXTRA TUBE GOLD TOP Routine 11/28/2023 5 :30 AM EDT EXTRA TUBE LIGHT BLUE TOP Routine 11/28/2023 5:30 AM EDT EXTRA TUBES Routine 11/28/2023 5:30 AM EDT CBC WITH AUTO DIFFERENTIAL STAT 11/28/2023 5:26 AM EDT COMPREHENSIVE METABOLIC PANEL, PLASMA STAT 11/28/2023 5:26 AM EDT LIPASE, PLASMA STAT 11/28/2023 5:26 AM EDT EXTRA TUBE LAVENDER TOP Routine 11/26/2023 9:11 AM EDT EXTRA TUBE LIGHT GREEN TOP Routine 11/26/2023 9:11 AM EDT EXTRA TUBES Routine 11/26/2023 9:11 AM EDT TEST QUALITATIVE PLASMA STAT 11/26/2023 9:11 AM EDT LACTATE, VENOUS STAT 11/26/2023 9:11 AM EDT LIPASE, PLASMA STAT 11/26/2023 9:11 AM EDT CBC WITH AUTO DIFFERENTIAL STAT 11/26/2023 9:11 AM EDT COMPREHENSIVE METABOLIC PANEL, PLASMA STAT 11/26/2023 9:11 AM EDT OPIATES, LCMSMS, URINE STAT 2:10 PM EDT THC URINE CONFIRM STAT 11/08/2023 2:1 0 PM EDT BENZODIAZEPINE, URINE, QUANTITATIVE STAT 11/08/2023 2:10 PM EDT DRUG ABUSE SCREEN, URINE STAT 11/08/2023 2:10 PM EDT CBC WITH AUTO DIFFERENTIAL STAT 11/08/2023 12:35 PM EDT TEST QUALITATIVE PLASMA STAT 11/08/2023 12:35 PM EDT ETHYL ALCOHOL PLASMA STAT 11/08/2023 12:35 PM EDT LACTATE, VENOUS STAT 11/08/2023 12:35 PM EDT LIPASE, PLASMA STAT 11/08/2023 12:35 PM EDT COMPREHENSIVE METABOLIC PANEL, PLASMA STAT 11/08/2023 12:35 PM EDT HEPATITIS C ANTIBODY - ED W/REFLEX TO HCV QUANT PCR STAT 10/07/2023 9:32 AM EDT ED PROTOCOL HIV 1/2 ANTIBODY/ANTIGEN SCREEN W/REFLEX TO HIV 1/2 ANTIBODY DIFFERENTIATION STAT 03/07/2023 1:38 PM EST from Last 3 Months or Most Recently Relevant to Health Maintenance Results * SARS-CoV-2 COVID-19/Influenza A,B (01/31/2024 5:22 PM EST) SARS CoV-2/COVID-19 RNA PCR Result Not Detected Not Detected 01/31/2024 6:02 PM EST [facility] Comment:For In Vitro Diagnos tic Use Influenza A Virus PCR Result Not Detected Not Detected 01/31/2024 6:02 PM EST [facility] Comment:For In Vitro Diagnos tic Use Influenza B Virus PCR Result Not Detected Not Detected 01/31/2024 6:02 PM EST [facility] Comment:For In Vitro Diagnos tic Use Swab Nasopharyngeal structure / Unknown Non-blood Collection / Unknown 01/31/2024 5:22 PM EST 01/31/2024 5:37 PM EST Narrative [facility] - 01/31/2024 6:02 PM EST This [...] MICROBIOLOGY - GENERAL ORDER STACIA Final Result [facility] [address] [place] [id number] * (ABNORMAL) CBC w/diff (01/31/2024 5:22 PM EST) Only the most recent of9 resultswithin the time period is included. WBC Count 6.35 3.70 - 10.30 10*3/uL LAB HEMATOLOGY METHOD 01/31/2024 5:40 PM EST [facility] RBC Count 4.30 3.90 - 5.20 10*6/uL LAB HEMATOLOGY METHOD 01/31/2024 5:40 PM [facility] HGB 11.0(L) 11.2 - 15.7 g/dL LAB HEMATOLOGY METHOD 01/31/2024 5:40 PM EST [facility] HCT 34.7 34.0 - 45.0 % LAB HEMATOLOGY METHOD 01/31/2024 5:40 PM [facility] Platelet Count 207 155 - 369 10*3/uL LAB HEMATOLOGY METHOD 01/31/2024 5:40 PM [facility] MCV 81 79 - 98 fL LAB HEMATOLOGY METHOD 01/31/2024 5:40 PM [facility] MCH 25.6(L) 26.0 - 32.0 pg LAB HEMATOLOGY METHOD 01/31/2024 5:40 PM EST [facility] MCHC 31.7 30.7 - 35.5 g/dL LAB HEMATOLOGY METHOD 01/31/2024 5:40 PM [facility] RDW 16.1(H) 11.5 - 14.5 % LAB HEMATOLOGY METHOD 01/31/2024 5:40 PM [facility] MPV 9.9 8.8 - 12.5 fL LAB HEMATOLOGY METHOD 01/31/2024 5:40 PM [facility] nRBC 0.0 <=0.0 per 100 WBCs LAB HEMATOLOGY METHOD 01/31/2024 5:40 PM [facility] Differential Type Automated LAB HEMATOLOGY METHOD 01/31/2024 5:40 PM [facility] Neutrophils % 65 % LAB HEMATOLOGY METHOD 01/31/2024 5:40 PM [facility] Lymphocytes % 25 % LAB HEMATOLOGY METHOD 01/31/2024 5:40 PM [facility] Monocytes % 6 % LAB HEMATOLOGY METHOD 01/31/2024 5:40 PM [facility] Eosinophils % 2 % LAB HEMATOLOGY METHOD 01/31/2024 5:40 PM [facility] Basophils % 1 % LAB HEMATOLOGY METHOD 01/31/2024 5:40 PM [facility] Immature Granulocytes % 1 % LAB HEMATOLOGY METHOD 01/31/2024 5:40 PM [facility] Neutrophils Absolute 4.16 1.60 - 6.10 10*3/uL LAB HEMATOLOGY METHOD 01/31/2024 5:40 PM [facility] Lymphocytes Absolute 1.60 1.20 - 3.90 10*3/uL LAB HEMATOLOGY METHOD 01/31/2024 5:40 PM [facility] Monocytes Absolute 0.35 0.30 - 0.90 10*3/uL LAB HEMATOLOGY METHOD 01/31/2024 5:40 PM EST [facility] Eosinophils Absolute 0.15 0.00 - 0.50 10*3/uL LAB HEMATOLOGY METHOD 01/31/2024 5:40 PM EST [facility] Basophils Absolute 0.05 0.00 - 0.10 10*3/uL LAB HEMATOLOGY METHOD 01/31/2024 5:40 PM [facility] Immature Granulocytes Absolute 0.04 0.00 - 0.06 10*3/uL LAB HEMATOLOGY METHOD 01/31/2024 5:40 PM EST [facility] Blood Venous blood specimen / Unknown Venipuncture / Unknown 01/31/2024 5:22 PM EST 01/31/2024 5:37 PM EST Narrative [facility] - 01/31/2024 5:40 PM EST Therapeutic decision making should be based on absolute values, rather than percentages. Mireya NAJERA LAB BLOOD ORDERABLES Final Resul t Performing Organization Address City/[facility] Co de Phone Number [facility] [address] [place] [address] * hCG qualitative (01/31/2024 5:22 PM EST) Only the most recent of6 resultswithin the time period is included. Test Negative Negative 01/31/2024 6:01 PM [facility] Blood Venous blood specimen / Unknown Venipuncture / Unknown 01/31/2024 5:22 PM EST 01/31/2024 5:37 PM EST [facility] - 01/31/2024 6:01 PM EST Reference Range: Males and non- females: Negative. Mireya NAJERA LAB BLOOD ORDERABLES Final Resul t Performing Organization Address City/[facility] Co de Phone Number [facility] [address] [place] [address] * Lipase (01/31/2024 5:22 PM EST) Only the most recent of10 resultswithin the time period is included. Lipase, Plasma 30 19 - 63 U/L 01/31/2024 6:01 PM EST [facility] Blood Venous blood specimen / Unknown Venipuncture / Unknown 01/31/2024 5:22 PM EST 01/31/2024 5:37 PM EST us Mireya NAJERA LAB BLOOD ORDERABLES Final Resul t [facility] [address] [place] [address] * (ABNORMAL) CMP (01/31/2024 5:22 PM EST) Only the most recent of12 resultswithin the time period is included. Glucose, Plasma 105(H) 74 - 99 mg/dL 01/31/2024 6:01 PM [facility] BUN, Plasma 7 7 - 21 mg/dL 01/31/2024 6:01 PM [facility] Creatinine, Plasma 0.50(L) 0.60 - 1.10 mg/dL 01/31/2024 6:01 PM [facility] BUN/Creatinine Ratio 14 01/31/2024 6:01 PM [facility] Sodium, Plasma 135(L) 136 - 145 mmol/L 01/31/2024 6:01 PM [facility] Potassium, Plasma 4.2 3.6 - 4.9 mmol/L 01/31/2024 6:01 PM [facility] Chloride, Plasma 104 97 - 107 mmol/L 01/31/2024 6:01 PM [facility] CO2, Plasma 22 22 - 29 mmol/L 01/31/2024 6:01 PM [facility] Anion Gap 9 6 - 16 mmol/L 01/31/2024 6:01 PM [facility] Total Calcium, Plasma 8.9 8.9 - 10.2 mg/dL 01/31/2024 6:01 PM [facility] Total Protein 6.5 6.3 - 7.9 g/dL 01/31/2024 6:01 PM [facility] Albumin, Plasma 3.8 3.5 - 5.2 g/dL 01/31/2024 6:01 PM [facility] AST, Plasma 23 10 - 35 U/L 01/31/2024 6:01 PM [facility] ALT, Plasma 33 10 - 35 U/L 01/31/2024 6:01 PM EST [facility] Alkaline Phosphatase, Plasma 104 35 - 104 U/L 01/31/2024 6:01 PM EST [facility] Total Bilirubin, Plasma <0.2(L) 0.2 - 1.1 mg/dL 01/31/2024 6:01 PM [facility] eGFRcr 124.1 mL/min/1.7 3m*2 01/31/2024 6:01 PM [facility] Comment:Reported eGFRcr in m L/min/1.73m2 is based the CKD-EPI 2020 equation that does not use a race coefficient. Blood Venous blood specimen / Unknown Venipuncture / Unknown 01/31/2024 5:22 PM EST 01/31/2024 5:37 PM EST us Mireya NAJERA LAB BLOOD ORDERABLES Final Resul t Performing Organization Address City/[facility] Co de Phone Number [facility] [address] [place] [address] * Morphology (01/25/2024 3:47 AM EST) RBC Morphology Slide Reviewed LAB HEMATOLOGY METHOD 01/25/2024 4:34 AM EST [facility] Platelet Estimate Platelet count not valid due to clumping. Appears normal. LAB HEMATOLOGY METHOD 01/25/2024 4:34 AM EST [facility] Blood Venous blood specimen / Unknown Venipuncture / Unknown 01/25/2024 3:47 AM EST 01/25/2024 4:00 AM EST us Mary Sotelo MD LAB BLOOD ORDERABLES Final Result Performing Organization Address City/[facility] Co de Phone Number [facility] [address] [place] [address] * Phosphorus (01/25/2024 3:47 AM EST) Only the most recent of2 resultswithin the time period is included. Phosphorus, Plasma 3.3 2.5 - 4.5 mg/dL 01/25/2024 4:22 AM EST [facility] Blood Venous blood specimen / Unknown Venipuncture / Unknown 01/25/2024 3:47 AM EST 01/25/2024 4:00 AM EST us Mary Sotelo MD LAB BLOOD ORDERABLES Final Result Performing Organization Address City/[facility]/ZIP Co de Phone Number [facility] [address] [place] [address] * Magnesium (01/25/2024 3:47 AM EST) Only the most recent of4 resultswithin the time period is included. Magnesium, Plasma 2.3 1.9 - 2.4 mg/dL 01/25/2024 4:22 AM EST [facility] Blood Venous blood specimen / Unknown Venipuncture / Unknown 01/25/2024 3:47 AM EST 01/25/2024 4:00 AM EST us Mary Sotelo MD LAB BLOOD ORDERABLES Final Result Performing Organization Address City/[facility] de Phone Number [facility] [address] [place], [place] [id number] * (ABNORMAL) OXYCODONE CONFIRMATION,URINE (01/23/2024 7:49 PM EST) Oxycodone >1,000(H) <50 ng/mL 01/26/2024 7:10 AM EST [facility] Oxymorphone <50 <50 ng/mL 01/26/2024 7:10 AM EST [facility] Oxymorphone Glucuronide >1,000(H) <50 ng/mL 01/26/2024 7:10 AM EST [facility] Urine Urine specimen obtained by clean catch procedure / Unknown Non-blood Collection / Unknown 01/23/2024 7:49 PM EST 01/23/2024 8:25 PM EST Narrative [facility] - 01/26/2024 7:10 AM EST Test performed by LC-MS/MS at the [facility]. This test was developed and its performance characteristics determined by [facility]. It has not been cleared or approved by the FDA. The laboratory is regulated under CLIA as qualified to perform high-complexity testing. This test is used for clinical purposes. us Tony NAJERA LAB URINE ORDERABLES Final Result [facility] [address] [place] [address] * (ABNORMAL) Opiates Confirm Urine (01/23/2024 7:49 PM EST) Only the most recent of2 resultswithin the time period is included. Codeine <50 <50 ng/mL 01/26/2024 7:10 AM EST [facility] Codeine Glucuronide <50 <50 ng/mL 01/26/2024 7:10 AM EST [facility] Desmethyl Tramadol <50 <50 ng/mL 01/26/2024 7:10 AM EST [facility] EDDP - Methadone Metabolite <50 <50 ng/mL 01/26/2024 7:10 AM EST [facility] Hydrocodone <50 <50 ng/mL 01/26/2024 7:10 AM EST [facility] Hydromorphone <50 <50 ng/mL 01/26/2024 7:10 AM EST [facility] Hydromorphone Glucuronide <50 <50 ng/mL 01/26/2024 7:10 AM EST [facility] Comment:Metabolite of Hydrom orphone Meperidine <50 <50 ng/mL 01/26/2024 7:10 AM EST [facility] Methadone <50 <50 ng/mL 01/26/2024 7:10 AM EST [facility] 6 Monoacetyl morphine <10 <10 ng/mL 01/26/2024 7:10 AM EST [facility] Morphine 181(H) <50 ng/mL 01/26/2024 7:10 AM EST [facility] Morphine Glucuronide >1,000(H) <50 ng/mL 01/26/2024 7:10 AM EST [facility] Comment:Metabolite of Morphi ne Naloxone <50 <50 ng/mL 01/26/2024 7:10 AM EST [facility] Naloxone Glucuronide <50 <50 ng/mL 01/26/2024 7:10 AM EST [facility] Comment:Metabolite of Naloxo ne Normeperidine <50 <50 ng/mL 01/26/2024 7:10 AM EST [facility] Tramadol <50 <50 ng/mL 01/26/2024 7:10 AM EST [facility] Urine Urine specimen obtained by clean catch procedure / Unknown Non-blood Collection / Unknown 01/23/2024 7:49 PM EST 01/23/2024 8:25 PM EST Narrative [facility] - 01/26/2024 7:10 AM EST Drug analysis is confirmed by LC-MS/MS (LC Tandem Mass Spectrometry) on Urine specimens. ?? This test was developed and its performance characteristics determined by [facility]. It has not been cleared or approved by the FDA. The laboratory is regulated under CLIA as qualified to perform high-complexity testing. This test is used for clinical purposes. Testing is performed at the [facility], [facility] Laboratory. Tony NAJERA LAB URINE ORDERABLES Final Result [facility] [address] [place] [address] * Drug Abuse Screen Urine (01/23/2024 7:49 PM EST) Only the most recent of2 resultswithin the time period is included. Amphetamine Screen Urine Negative Cutoff: 500 ng/mL 01/23/2024 8:52 PM EST [facility] Benzodiazepines Screen Urine Presumptive positive. Confirmation by LC-MS/MS to follow. Cutoff: 200 ng/mL 01/23/2024 8:52 PM EST [facility] Cannabinoid Screen Urine Presumptive positive. Confirmation by LC-MS/MS to follow. Cutoff: 50 ng/mL 01/23/2024 8:52 PM EST [facility] Cocaine Screen Urine Negative Cutoff: 300 ng/mL 01/23/2024 8:52 PM EST [facility] Barbiturate Screen Urine Negative Cutoff: 200 ng/mL 01/23/2024 8:52 PM EST [facility] Opiate Screen Urine Presumptive positive. Confirmation by LC-MS/MS to follow. Cutoff: 300 ng/mL 01/23/2024 8:52 PM EST [facility] Methadone Screen Urine Negative Cutoff: 300 ng/mL 01/23/2024 8:52 PM EST [facility] Buprenorphine Screen Urine Negative Cutoff: 10 ng/mL 01/23/2024 8:52 PM EST [facility] Fentanyl Screen Urine Negative Cutoff: 1 ng/mL 01/23/2024 8:52 PM EST [facility] Oxycodone Screen Urine Presumptive positive. Confirmation by LC-MS/MS to follow. Cutoff: 100 ng/mL 01/23/2024 8:52 PM EST [facility] Urine Urine specimen obtained by clean catch procedure / Unknown Non-blood Collection / Unknown 01/23/2024 7:49 PM EST 01/23/2024 8:25 PM EST Tony NAJERA LAB URINE ORDERABLES Final Result Performing Organization Address City/[facility] Co de Phone Number [facility] [address] [place] [address] * (ABNORMAL) THC Urine Confirm LCMSMS (01/23/2024 7:49 PM EST) Only the most recent of2 resultswithin the time period is included. 9 Carboxy THC <10 <10 ng/mL 01/26/2024 7:10 AM EST [facility] 9 Carboxy THC Glucuronide 86(H) <25 ng/mL 01/26/2024 7:10 AM EST [facility] Urine Urine specimen obtained by clean catch procedure / Unknown Non-blood Collection / Unknown 01/23/2024 7:49 PM EST 01/23/2024 8:25 PM EST Narrative [facility] - 01/26/2024 7:10 AM EST Drug analysis is confirmed by LC-MS/MS (LC Tandem Mass Spectrometry) on Urine specimens. ?? This test was developed and its performance characteristics determined by [facility]. It has not been cleared or approved by the FDA. The laboratory is regulated under CLIA as qualified to perform high-complexity testing. This test is used for clinical purposes. Testing is performed at the [facility]. Tony NAJERA LAB URINE ORDERABLES Final Result Performing Organization Address City/[facility]/ZIP Co de Phone Number [facility] [address] [place] [address] * (ABNORMAL) Benzodiazepine Confirm Urine (01/23/2024 7:49 PM EST) Only the most recent of2 resultswithin the time period is included. Alpha [place] Alprazolam <20 <20 ng/mL 01/25 7:10 AM EST [facility] Alpha [place] Midazolam <20 <20 ng/mL 2023 7:10 AM EST [facility] Alpha [place] Triazolam <20 <20 ng/mL 2023 7:10 AM EST [facility] Alprazolam <10 <10 ng/mL 01/26/2024 7:10 AM [facility] Aminoclonazepam >1,000(H) <20 ng/mL 7:10 AM [facility] Clonazepam 66(H) <10 ng/mL 01/26/2024 7:10 AM [facility] Diazepam <10 <10 ng/mL 01/26/2024 7:10 AM [facility] Lorazepam <20 <20 ng/mL 01/26/2024 7:10 AM [facility] Lorazepam Glucuronide <50 <50 ng/mL 01/26/2024 7:10 AM [facility] Midazolam 01/26/2024 7:10 AM [facility] Nordiazepam <20 <20 ng/mL 01/26/2024 7:10 AM [facility] Oxazepam <20 <20 ng/mL 01/26/2024 7:10 AM [facility] Oxazepam Glucuronide <50 <50 ng/mL 01/26/2024 7:10 AM [facility] Temazepam <20 <20 ng/mL 01/26/2024 7:10 AM [facility] Temazepam Glucuronide <50 <50 ng/mL 01/26/2024 7:10 AM [facility] Triazolam 01/26/2024 7:10 AM [facility] Urine Urine specimen obtained by clean catch procedure / Unknown Non-blood Collection / Unknown 01/23/2024 7:49 PM EST 01/23/2024 8:25 PM EST Narrative [facility] - 01/26/2024 7:10 AM EST Drug analysis is confirmed by LC-MS/MS (LC Tandem Mass Spectrometry) on Urine specimens. ?? This test was developed and its performance characteristics determined by [facility]. It has not been cleared or approved by the FDA. The laboratory is regulated under CLIA as qualified to perform high-complexity testing. This test is used for clinical purposes. Testing is performed at the [facility]. us Tony NAJERA LAB URINE ORDERABLES Final Result [facility] [address] [place] [address] * XR Abdomen 1 View (01/23/2024 8:16 [...] Jerome MD on 01/23/2024 8:19 AM us Tony NAJERA IMG XR PROCEDURES Final Re sult * ECG Adult (01/22/2024 9:50 PM EST) Only the most recent of2 resultswithin the time period is included. EKG DIAGNOSIS CLASS Borderline Normal MUSE ECG Ventricular Rate 53 BPM MUSE ECG Atrial Rate 53 BPM MUSE ECG CA Interval 112 ms MUSE ECG QRSD Interval 96 ms MUSE ECG QT Interval 450 ms MUSE ECG QTC Interval 422 ms MUSE ECG P [place] 33 degrees MUSE ECG R [place] 20 degrees MUSE ECG T Wave [place] 22 degrees MUSE ECG Diagnosis Sinus bradycardia with sinus arrhythmia MUSE ECG Diagnosis Otherwise normal ECG MUSE ECG Diagnosis MUSE ECG Diagnosis Confirmed by Francis Day ([id number]) on 01/23/2024 9:46:19 AM MUSE ECG 01/22/2024 9:50 PM EST 01/23/2024 9:46 AM EST us Tony NAJERA ECG ORDERABLES Final Resu lt MUSE ECG * SARS CoV-2/COVID-19 by PCR - Rapid (01/22/2024 8:50 PM EST) SARS CoV-2/COVID-1 9 RNA PCR Result Not Detected Not Detected 01/22/2024 9:53 PM EST [facility] Swab Nasopharyngeal structure / Unknown Non-blood Collection / Unknown 01/22/2024 8:50 PM EST 01/22/2024 9:01 PM EST Narrative [facility] - 01/22/2024 9:53 PM EST [...] clinical signs and symptoms consistent with COVID-19. Tony NAJERA LAB MICROBIOLOGY - GENERAL ORDERABLES Final Result Performing Organization Address City/[facility]/ZIP Co de Phone Number [facility] [address] [place] [address] * Nasopharyngeal Respiratory Panel (01/22/2024 8:50 PM EST) Nasopharyngeal Respiratory PCR Interpretation Not Detected for all analytes Not Detected for all analytes 01/22/2024 10:59 PM EST [facility] Swab Nasopharyngeal structure / Unknown Non-blood Collection / Unknown 01/22/2024 8:50 PM EST 01/22/2024 9:01 PM EST Narrative [facility] - 01/22/2024 10:59 PM EST [...] Respiratory PCR Panel is performed using the [employer] instrument. ??This test is FDA approved for use with Nasopharyngeal swabs only. This test is used for clinical purposes. It should not be regarded as investigational or for research. The [facility] is certified under the Clinical Laboratory Improvement Amendments of 1988 (CLIA-88) as qualified to perform high complexity clinical laboratory testing. Tony NAJERA LAB MICROBIOLOGY - GENERAL ORDERABLES Final Result Performing Organization Address City/[facility]/ZIP Co de Phone Number [facility] [address] [place] [address] * Urine Gunter Panel (01/22/2024 6:36 PM EST) Only the most recent of3 resultswithin the time period is included. Extra Reflex urine culture not indicated 01/22/2024 9:01 PM EST [facility] Urine Urine specimen obtained by clean catch procedure / Unknown Non-blood Collection / Unknown 01/22/2024 6:36 PM EST 01/22/2024 7:03 PM EST us Nas Reynaga MD LAB URINE ORDERABLES Final Resul t Performing Organization Address City/[facility] Co de Phone Number [facility] [address] [place] [address] * Urinalysis Microscopic Examination (01/22/2024 6:36 PM EST) Urine Urine specimen obtained by clean catch procedure / Unknown Non-blood Collection / Unknown 01/22/2024 6:36 PM EST 01/22/2024 6:49 PM EST us Nas Reynaga MD LAB URINE ORDERABLES Final Resul t Performing Organization Address City/[facility] Co de Phone Number [facility] [address] [place] [address] * (ABNORMAL) Urinalysis with reflex microscopic (Culture NOT Included) (01/22/2024 6:36 PM EST) Only the most recent of4 resultswithin the time period is included. Color, Urine Yellow LAB URINALYSIS - AUTOMATED METHOD 01/22/2024 7:46 PM EST [facility] Clarity, Urine Cloudy LAB URINALYSIS - AUTOMATED METHOD 01/22/2024 7:46 PM EST [facility] Spec [place], Urine 1.016 1.005 - 1.030 LAB URINALYSIS - AUTOMATED METHOD 01/22/2024 7:46 PM EST [facility] pH, Urine 6.5 4.5 to 8 LAB URINALYSIS - AUTOMATED METHOD 01/22/2024 7:46 PM EST [facility] Protein, Urine Negative Negative mg/dL LAB URINALYSIS - AUTOMATED METHOD 01/22/2024 7:46 PM EST [facility] Glucose, Urine Negative Negative mg/dL LAB URINALYSIS - AUTOMATED METHOD 01/22/2024 7:46 PM EST [facility] Ketones, Urine Negative Negative mg/dL LAB URINALYSIS - AUTOMATED METHOD 01/22/2024 7:46 PM [facility] Blood, Urine Negative Negative LAB URINALYSIS - AUTOMATED METHOD 01/22/2024 7:46 PM [facility] Bilirubin, Urine Negative Negative LAB URINALYSIS - AUTOMATED METHOD 01/22/2024 7:46 PM [facility] Urobilinogen, Urine 0.2 0.2 to 1.0 mg/dL LAB URINALYSIS - AUTOMATED METHOD 01/22/2024 7:46 PM [facility] Leukocytes, Urine Small(A) Negative LAB URINALYSIS - AUTOMATED METHOD 01/22/2024 7:46 PM [facility] Nitrite, Urine Negative Negative LAB URINALYSIS - AUTOMATED METHOD 01/22/2024 7:46 PM [facility] RBC, Urine <1 0 to 3 /HPF 01/22/2024 7:46 PM [facility] Comment:This result was prev iously suppressed from the chart. WBC, Urine 0 - 5 0 to 5 /HPF 01/22/2024 7:46 PM [facility] Comment:This result was prev iously suppressed from the chart. Squamous Epithelial Cells 3 - 5 0 to 5 /HPF 01/22/2024 7:46 PM [facility] Comment:This result was prev iously suppressed from the chart. Hyaline Casts 0 - 2 0 to 5 /LPF 01/22/2024 7:46 PM [facility] Comment:This result was prev iously suppressed from the chart. Bacteria, Urine Negative Negative 01/22/2024 7:46 PM [facility] Comment:This result was prev iously suppressed from the chart. Urine Urine specimen obtained by clean catch procedure / Unknown Non-blood Collection / Unknown 01/22/2024 6:36 PM EST 01/22/2024 6:49 PM EST [facility] - 01/22/2024 7:46 PM EST Performed by manual method us Nas Reynaga MD LAB URINE ORDERABLES Final Resul t Performing Organization Address City/[facility]/ZIP Co de Phone Number [facility] [address] [place] [address] * Lactic acid, venous (01/22/2024 3:39 PM EST) Only the most recent of6 resultswithin the time period is included. Lactate, Venous, Whole Blood 1.5 0.5 - 2.2 mmol/L LAB HEMATOLOGY METHOD 01/22/2024 3:45 PM EST [facility] Blood Venous blood specimen / Unknown Venipuncture / Unknown 01/22/2024 3:39 PM EST 01/22/2024 3:43 PM EST us Mireya Lindsay MD LAB BLOOD ORDERABLES Final Res ult Performing Organization Address City/[facility]/ZIP Co de Phone Number [facility] [address] [place] [address] * Procalcitonin (01/22/2024 3:39 PM EST) Procalcitonin, Plasma <0.06 <0.09 ng/mL 01/22/2024 9:57 PM EST [facility] Blood Venous blood specimen / Unknown Venipuncture / Unknown 01/22/2024 3:39 PM EST 01/22/2024 3:43 PM EST Narrative [facility] - 01/22/2024 9:57 PM EST [...] predict 28 day mortality risk. Please consult [email or web address] for more information. Test performed at [facility]. us Tony NAJERA LAB BLOOD ORDERABLES Final Result [facility] [address] [place] [address] * (ABNORMAL) CBC (01/22/2024 3:39 PM EST) Only the most recent of2 resultswithin the time period is included. WBC Count 6.98 3.70 - 10.30 10*3/uL LAB HEMATOLOGY METHOD 01/22/2024 3:45 PM EST [facility] RBC Count 4.48 3.90 - 5.20 10*6/uL LAB HEMATOLOGY METHOD 01/22/2024 3:45 PM EST [facility] HGB 11.5 11.2 - 15.7 g/dL LAB HEMATOLOGY METHOD 01/22/2024 3:45 PM EST [facility] HCT 36.0 34.0 - 45.0 % LAB HEMATOLOGY METHOD 01/22/2024 3:45 PM EST [facility] Platelet Count 265 155 - 369 10*3/uL LAB HEMATOLOGY METHOD 01/22/2024 3:45 PM EST [facility] MCV 80 79 - 98 fL LAB HEMATOLOGY METHOD 01/22/2024 3:45 PM EST [facility] MCH 25.7(L) 26.0 - 32.0 pg LAB HEMATOLOGY METHOD 01/22/2024 3:45 PM EST [facility] MCHC 31.9 30.7 - 35.5 g/dL LAB HEMATOLOGY METHOD 01/22/2024 3:45 PM EST [facility] RDW 15.9(H) 11.5 - 14.5 % LAB HEMATOLOGY METHOD 01/22/2024 3:45 PM EST [facility] MPV 9.7 8.8 - 12.5 fL LAB HEMATOLOGY METHOD 01/22/2024 3:45 PM EST [facility] nRBC 0.0 <=0.0 per 100 WBCs LAB HEMATOLOGY METHOD 01/22/2024 3:45 PM EST [facility] Blood Venous blood specimen / Unknown Venipuncture / Unknown 01/22/2024 3:39 PM EST 01/22/2024 3:43 PM EST us Mireya Lindsay MD LAB BLOOD ORDERABLES Final Res ult Performing Organization Address [facility]/ZIP Co de Phone Number [facility] [address] [place] [address] * C-reactive protein (01/22/2024 3:39 PM EST) CRP, Plasma <3.0 <=8.0 mg/L 01/22/2024 9:13 PM EST [facility] Blood Venous blood specimen / Unknown Venipuncture / Unknown 01/22/2024 3:39 PM EST 01/22/2024 3:43 PM EST Narrative [facility] - 01/22/2024 9:13 PM EST This CRP test is appropriate for assessment of infection, systemic inflammation and/or tissue injury. To assess cardiovascular disease risk order high sensitivity CRP (CRPH). us Tony NAJERA LAB BLOOD ORDERABLES Final Result Performing Organization Address [facility] Co de Phone Number [facility] [address] [place] [address] * hCG, Total Beta, Quantitative, Plasma (01/22/2024 3:39 PM EST) hCG, Total Beta <1 <5 mIU/mL 4:22 PM EST [facility] Blood Venous blood specimen / Unknown Venipuncture / Unknown 01/22/2024 3:39 PM EST 01/22/2024 3:43 PM EST Narrative [facility] - 01/22/2024 4:22 PM EST [...] to the 4th International Standard for hCG (NIBS 75/589). Results obtained with different test methods or kits cannot be used interchangeably. Nas Reynaga MD LAB BLOOD ORDERABLES Final Resul t Performing Organization Address City/[facility]/ZIP Co de Phone Number [facility] LAB [address] [place] [address] * Hemoglobin A1c (01/22/2024 3:39 PM EST) Pathologist [facility] Hemoglobin A1c 5.1 <5.7 % 01/22/2024 10:44 PM EST [facility] Blood Venous blood specimen / Unknown Venipuncture / Unknown 01/22/2024 3:39 PM EST 01/22/2024 3:43 PM EST Narrative [facility] - 01/22/2024 10:44 PM EST HA1C Interpretive Data: Diagnosis of Diabetes: Diabetic > or = 6.5% Pre-diabetic 5.7 to 6.4% Non-diabetic < or = 5.6% Glycemic Targets for Type I and Type II Diabetics: Non- Adults <7.0% Adults <6.0% Children and Adolescents <7.5% Source: ??[place] [employer]. Standards of medical care in diabetes,2017. Diabetes Care.2017:40 (suppl 1):S1-S135. HbA1c assay performed by an ion-exchange chromatography method that is certified traceable to the DCCT. Tony NAJERA LAB BLOOD ORDERABLES Final Result Performing Organization Address [facility] Co de Phone Number [facility] [address] [place] [address] * Gold Top (12/22/2023 3:51 AM EDT) Only the most recent of3 resultswithin the time period is included. Pathologist [facility] Extra Hold for add-ons 12/22/2023 6:01 AM EDT [facility] Comment:Auto resulted. Blood Venous blood specimen / Unknown 12/22/2023 3:51 AM EDT 12/22/2023 4:01 AM EDT us Lester NAJERA LAB BLOOD ORDERABLES Fi nal Result [facility] [address] [place] [address] * CT Abdomen Pelvis w IV Contrast (12/16/2023 9:24 AM EDT) Only the most recent of2 resultswithin the time period is included. Anatomical Region Laterality Modality Abdomen, Pelvis Computed Tomogra phy Impressions 12/16/2023 9:53 AM EDT 1. No acute abdominal or pelvic findings. 2. No change of the solid-appearing right breast nodule. CRITICAL RESULT: ?? No. COMMUNICATION: Per this written report Drafted by Edgardo Roque MD on 12/16/2023 9:43 AM Final report signed by Edgardo Roque MD on 12/16/2023 9:53 AM Narrative 12/16/2023 9:53 AM EDT CLINICAL INDICATION: Pancreatitis, acute, severe TECHNIQUE: Imaging of the abdomen and pelvis was performed, from lung bases through pubic symphysis, using spiral technique, following administration of IV contrast, Omnipaque 300, 100 mL. Delayed (excretory phase) images were performed through the kidneys. Reformatted images in the coronal and sagittal planes were generated from the axial data set to facilitate diagnostic accuracy. Total DLP (Dose-Length Product): 865.51 mGy.cm. Please note: The reported value represents the total of one or more individual components during the CT acquisition on this date and at this time, and as such, the same value may appear in more than one CT report depending on the interpreting/reporting physicians. COMPARISON: 12/02/2023, 03/14/2023, 12/04/2020 CT scans FINDINGS: LUNG BASES: The lung bases are clear. Solid-appearing nodule in the inferior aspect of the right breast medially measuring 23 mm transverse similar to 03/14/2023 and 12/04/2020 ABDOMEN AND PELVIS.: Prior cholecystectomy. No biliary dilatation. The liver, spleen, pancreas, and adrenal glands have an unremarkable appearance. No CT evidence of acute or chronic pancreatitis. Unremarkable kidneys. No renal or ureteral calculi. No hydronephrosis or hydroureter. No intestinal obstruction or pneumoperitoneum. Mild amount retained colonic feces within the ascending and transverse colon. No evidence of appendicitis. No acute peritoneal inflammatory changes apparent. No pelvic mass or abnormal fluid collection. No free fluid in the abdomen or pelvis. Unremarkable vasculature. No adenopathy apparent. There are a few small nodes in the inguinal regions not significantly changed. Unremarkable abdominal wall. No acute osseous abnormality. Procedure Note Edgardo Roque MD - 12/16/2023 CLINICAL INDICATION: Pancreatitis, acute, severe TECHNIQUE: Imaging of the abdomen and pelvis was performed, from lung bases throughpubic symphysis, using spiral technique, following administration of IVcontrast, Omnipaque 300, 100 mL. Delayed (excretory phase) images wereperformed through the kidneys. Reformatted images in the coronal andsagittal planes were generated from the axial data set to facilitatediagnostic accuracy. Total DLP (Dose-Length Product): 865.51 mGy.cm. Please note: The reportedvalue represents the total of one or more individual components during theCT acquisition on this date and at this time, and as such, the same valuemay appear in more than one CT report depending on theinterpreting/reporting physicians. COMPARISON: 12/02/2023, 03/14/2023, 12/04/2020 CT scans FINDINGS: LUNG BASES: The lung bases are clear. Solid-appearing nodule in theinferior aspect of the right breast medially measuring 23 mm transversesimilar to 03/14/2023 and 12/04/2020 ABDOMEN AND PELVIS.: Prior cholecystectomy. No biliary dilatation. The liver, spleen, pancreas,and adrenal glands have an unremarkable appearance. No CT evidence ofacute or chronic pancreatitis. Unremarkable kidneys. No renal or ureteral calculi. No hydronephrosis orhydroureter. No intestinal obstruction or pneumoperitoneum. Mild amount retainedcolonic feces within the ascending and transverse colon. No evidence ofappendicitis. No acute peritoneal inflammatory changes apparent. No pelvic mass or abnormal fluid collection. No free fluid in the abdomen or pelvis. Unremarkable vasculature. No adenopathy apparent. There are a few smallnodes in the inguinal regions not significantly changed. Unremarkable abdominal wall. No acute osseous abnormality. IMPRESSION: 1. No acute abdominal or pelvic findings. 2. No change of the solid-appearing right breast nodule. CRITICAL RESULT: No. COMMUNICATION: Per this written report Drafted by Edgardo Roque MD on 12/16/2023 9:43 AM Final report signed by Edgardo Roque MD on 12/16/2023 9:53 AM George Tang MD IMG CT PROCEDURES Final Res ult * POCT creatinine (12/16/2023 8:07 AM EDT) Creatinine, Point of Care 0.6 0.6 - 1.1 mg/dL 12/16/2023 8:09 AM EDT [facility] POCT eGFR 119 mL/min/1. 73m*2 12/16/2023 8:09 AM EDT [facility] Knot Bumper ID Marybeth Horta 12/16/2023 8:09 AM EDT [employer] LAB Device ID [id number] 12/16/2023 8:09 AM EDT [facility] Comment 12/16/2023 8:09 AM EDT [facility] Comment:Testing performed on i-STAT at the point of care. Reported eGFRcr in mL/min/1.73m2 is based the CKD-EPI 2020 equation that does not use a race coefficient. Blood Venous blood specimen / Unknown 12/16/2023 8:07 AM EDT 12/16/2023 8:09 AM EDT George Tang MD LAB POINT OF CARE T EST DOCKED DEVICE UNSOLICITED RESULTS Final Result [facility] [address] LAB [address] [place] [address] * Urine Gunter (12/14/2023 9:52 AM EDT) Urine Gunter Hold for add-ons 12/14/2023 12:01 PM EDT [facility] Comment:Hold for add-ons Urine Urine specimen obtained by clean catch procedure / Unknown Non-blood Collection / Unknown 12/14/2023 9:52 AM EDT 12/14/2023 9:52 AM EDT us Kayla Ramos MD LAB URINE ORDERABLES Final Resul t [facility] [address] [place] [id number] * (ABNORMAL) Blood gas panel, venous (12/14/2023 9:41 AM EDT) [facility] pH, Venous 7.36 7.32 - 7.43 LAB HEMATOLOGY METHOD 12/14/2023 9:47 AM EDT [facility] pCO2, Venous 42 37 - 52 mmHg LAB HEMATOLOGY METHOD 12/14/2023 9:47 AM EDT [facility] pO2, Venous 41(H) 25 - 40 mmHg LAB HEMATOLOGY METHOD 12/14/2023 9:47 AM EDT [facility] SO2, Measured, Venous 76 65 - 80 % LAB HEMATOLOGY METHOD 12/14/2023 9:47 AM EDT [facility] Base Excess, Venous -1.6 -2.0 - 3.0 mmol/L LAB HEMATOLOGY METHOD 12/14/2023 9:47 AM EDT [facility] Bicarbonate, Calculated, Venous 24 22 - 26 mmol/L LAB HEMATOLOGY METHOD 12/14/2023 9:47 AM EDT [facility] Hematocrit, Whole Blood 30.1(L) 34.0 - 45.0 % LAB HEMATOLOGY METHOD 12/14/2023 9:47 AM EDT [facility] Sodium, Whole Blood 132(L) 136 - 145 mmol/L LAB HEMATOLOGY METHOD 12/14/2023 9:47 AM EDT [facility] Potassium, Whole Blood 4.1 3.6 - 4.9 mmol/L LAB HEMATOLOGY METHOD 12/14/2023 9:47 AM EDT [facility] Chloride, Whole Blood 100 97 - 107 mmol/L LAB HEMATOLOGY METHOD 12/14/2023 9:47 AM EDT [facility] Glucose, Whole Blood 88 74 - 99 mg/dL LAB HEMATOLOGY METHOD 12/14/2023 9:47 AM EDT [facility] Lactate, Venous, Whole Blood 1.9 0.5 - 2.2 mmol/L LAB HEMATOLOGY METHOD 12/14/2023 9:47 AM EDT [facility] Ionized Calcium, Whole Blood 4.6 4.6 - 5.1 mg/dL LAB HEMATOLOGY METHOD 12/14/2023 9:47 AM EDT [facility] Blood Venous blood specimen / Unknown Venipuncture / Unknown 12/14/2023 9:41 AM EDT 12/14/2023 9:44 AM EDT us Kayla Ramos MD LAB BLOOD ORDERABLES Final Resul t [facility] [address] [place] [address] * Light Blue Top (11/28/2023 5:30 AM EDT) Extra Hold for add-ons 11/28/2023 8:01 AM EDT [facility] Comment:Auto resulted. Blood Venous blood specimen / Unknown 11/28/2023 5:30 AM EDT 11/28/2023 5:30 AM EDT us George Tang MD LAB BLOOD ORDERABLES Final Result Performing Organization Address City/[facility] Co de Phone Number [facility] [address] [place] [address] * Lavender Top (11/26/2023 9:11 AM EDT) Extra Hold for add-ons 11/26/2023 12:01 PM EDT [facility] Comment:Auto resulted. Blood Venous blood specimen / Unknown Venipuncture / Unknown 11/26/2023 9:11 AM EDT 11/26/2023 9:19 AM EDT us Carter Donis MD LAB BLOOD ORDERABLES Final Resul t Performing Organization Address City/[facility]/ZIP Co de Phone Number [facility] [address] [place] [address] * Light Green Top (11/26/2023 9:11 AM EDT) Extra Hold for add-ons 11/26/2023 12:01 PM EDT [facility] Comment:Auto resulted. Blood Venous blood specimen / Unknown Venipuncture / Unknown 11/26/2023 9:11 AM EDT 11/26/2023 9:19 AM EDT Carter Donis MD LAB BLOOD ORDERABLES Final Resul t Performing Organization Address City/[facility]/ZIP Co de Phone Number [facility] [address] [place] [address] * Ethyl Alcohol Plasma (11/08/2023 12:35 PM EDT) Pathologist [facility] Ethanol Plasma <10 <10 mg/dL 11/08/2023 1:02 PM EDT [facility] Blood Venous blood specimen / Unknown Venipuncture / Unknown 11/08/2023 12:35 PM EDT 11/08/2023 12:41 PM EDT Narrative [facility] - 11/08/2023 1:02 PM EDT Enzymatic Assay: Performed on [employer]. Abigail Thompson APRN LAB BLOOD ORDERABLES Final Result Performing Organization Address [facility] Co de Phone Number [facility] [address] [place] [address] * Hepatitis C Antibody - ED W/Reflex to HCV Quant PCR (10/07/2023 9:32 AM EDT) [facility] Hepatitis C Antibody Negative Negative 10/07/2023 10:12 AM EDT [facility] Blood Venous blood specimen / Unknown Venipuncture / Unknown 10/07/2023 9:32 AM EDT 10/07/2023 9:37 AM EDT Boston Choudhary MD LAB BLOOD ORDERABLES Final Re sult Performing Organization Address City/[facility] Co de Phone Number [facility] [address] [place] [address] from Last 3 Months or Most Recently Relevant to Health Maintenance Insurance MEDICAID Advance Directives * Full Code (Latest Code Status on File) Date Activated Date Inactivated Comments 01/22/2024 9:45 PM 01/25/2024 5:10 PM Question Answer Comments Patient has decision-making capacity? Yes * Full Code Date Activated Date Inactivated Comments 12/02/2023 12:50 PM 12/03/2023 5:02 AM Question Answer Comments Patient has decision-making capacity? Yes * Full Code Date Activated Date Inactivated Comments 10/27/2023 4:56 PM 10/28/2023 4:25 PM Question Answer Comments Patient has decision-making capacity? Yes * Full Code Date Activated Date Inactivated Comments 04/11/2023 6:21 AM 04/14/2023 5:52 PM Question Answer Comments Patient has decision-making capacity? Yes * Full Code Date Activated Date Inactivated Comments 03/18/2023 2:01 PM 03/25/2023 1:46 PM Question Answer Comments Patient has decision-making capacity? Yes Care Teams Carpenters Helper Relationship Specialty Start Date End Date Lisa Foote APRN [address] [place] [address] PCP - General 10/23/23
--- OUTSIDE RECORDS SUMMARY | 2024-02-03 15:08 | XMS_ITS | Encounter Summary ---
Author Organization Healthcare Address [address] [place] [address] Care Team Providers Care Truck Driver Heavy Name Role Phone QamarLisa mckeon Beatriz ORELLANA Primary Care Provider Cally Tilley LPN Unavailable Unavailable Encounter Details Date Type Department Care Team (Latest Contact Info) Description 12/22/2023 Travel Social History Tobacco Use Types Packs/Day [...] health care facility (including now)? No 10/27/2023 CAGE ASSESSMENT Answer [...] drink first t caleb in the morning (EYE-DIRECTOR RADIATION ONCOLOGY) to steady your nerves or to get rid of a hangover? 0 10/24/2023 CAGE Questionnaire Score 0 024 Utilities Answer Date Recorded In the past 12 months has th e [employer], gas, oil, or water company threatened to [...] documented as of this encounter Care Teams Truck Driver Heavy Relationship Specialty Start Date End Date Lisa Foote APRN [address] [place] [address] PCP - General 10/23/23 Cally Tilley LPN [employer] [place] [address] TCM Nurse 12/03/23 01/01/24 documented as of this encounter
--- OUTSIDE RECORDS SUMMARY | 2024-02-03 15:08 | XMS_ITS | Encounter Summary ---
Author Organization Healthcare Address [address] [place] [address] Care Team Providers Care Sales Solutions Associate Name Role Phone Lisa Foote ESTEBAN Primary Care Provider Amira Solis LPN Unavailable Unavailable Cally Tilley LPN Unavailable Unavailable Reason for Visit * Reason Comments TCM Call Encounter Details Date Type Department Care Team (Late st Contact Info) Description 12/03/2023 Patient Outreach [facility] [address] [place] [phone] Cally Tilley LPN [employer] [place] [address] TCM Call Social History Tobacco Use Types Packs/Day Years [...] place to sleep or slept in a detention (including now)? No 10/27/2023 CAGE ASSESSMENT Answer [...] drink first t caleb in the morning (EYE-CHEMICAL RECOVERY OPERATOR) to steady your nerves or to get rid of a hangover? 0 10/24/2023 CAGE Questionnaire Score 0 024 Utilities Answer Date Recorded In the past 12 months has th e [employer], gas, oil, or water company threatened to [...] Laureen Carrillo RN documented in this encounter Miscellaneous Notes * Progress Notes - Cally Tilley LPN - 12/03/2023 2:34 PM EDT Admission Date: 12/02/2023 Discharge Date: 12/03/2023 Hospital Service: Internal Medicine Discharge Diagnosis: Acute on chronic pancreatitis ----- ALONZO nurse call placed to patient regarding scheduling a hospital follow up appointment with PCP. Noanswer on phone number listed, left a message on voicemail with name, [facility], non urgent phone call, will attempt to reach you again tomorrow and call back number. documented in this encounter Plan of Treatment [...] documented as of this encounter Care Teams Sales Solutions Associate Relationship Specialty Start Date End Date Lisa Foote APRN [address] [place] [address] PCP - General 10/23/23 Amira Solis LPN [employer] [place] [place] [address] TCM Nurse 12/03/23 12/03/23 Cally Tilley LPN [employer] [place] [place] [address] TCM Nurse 12/03/23 01/01/24 documented as of this encounter
--- OUTSIDE RECORDS SUMMARY | 2024-02-03 15:08 | XMS_ITS | Encounter Summary ---
Author Organization Healthcare Address [address] [place] [address] Care Team Providers Care Braid Pattern Setter Name Role Phone Lisa Foote ASSEMBLING INSPECTOR Primary Care Provider Cally Tilley LPN Unavailable Unavailable Reason for Visit * Reason Comments Abdominal Pain Encounter Details Date Type Department Care Team (Late st Contact Info) Description 12/14/2023 8:49 AM EDT - 12/14/2023 12:30 PM EDT Emergency [facility] Emergency Department [address] [place] [address] Kayla Ramos MD [address] [place] [address] Abdominal pain, unspecified abdominal location (Primary Dx) [...] place to sleep or slept in a usp (including now)? 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) to steady your nerves or to get [...] Sign Reading Time Taken Comments Blood Pressure 133/75 12/14/2023 12:29 PM EDT Pulse 89 12/14/2023 12:29 PM EDT Temperature 36.9 ??C (98.5 ??F) 12/14/2023 12:29 PM E DT Respiratory Rate 16 12/14/2023 12:29 PM EDT Oxygen Saturation 100% 12/14/2023 12:29 PM EDT Inhaled Oxygen Concentration - - Weight 71.2 kg (157 lb) 12/14/2023 11:53 AM EDT Height - - Body Mass Index 26.13 12/02/2023 6:42 PM EDT documented in this encounter Functional Status * [...] this encounter Discharge Instructions * Discharge Instructions* Kayla Ramos MD - 12/14/2023 12:23 PM EDT Return for new or worsening symptoms. Follow up with your doctors. documented in this encounter Medications at Time of Discharge pantoprazole (Protonix) 40 MG EC tablet Take 1 tablet (40 mg) by mouth 1 (one) time each day. Do not crush, chew, or split. oxyCODONE (Roxicodone) 10 MG immediate release tablet Take 1 tablet (10 mg) by mouth every 6 (six) hours if needed for moderate pain or severe pain for up to 2 days. 6 tablet 4 12/16/19 24 acetaminophen (Tylenol) 325 MG tablet Take 2 tablets (650 mg) by mouth every 6 (six) hours if needed for pain. Under [place] law, monthly prescriptions (30 days) can be [...] 12 hours or as directed by . 14 patch 4 01/22/20 24 naloxone (Narcan) [...] if needed for nausea. 12 tablet 4 12/16/19 24 ondansetron ODT (Zofran-ODT) 4 MG disintegrating tablet Take 1 tablet (4 mg) by mouth every 6 (six) hours if needed for nausea. 12 tablet 4 12/16/19 24 oxyCODONE (Roxicodone) 10 MG immediate release tablet Take 1 tablet (10 mg) by mouth every 4 (four) hours if needed for severe pain. 30 tablet 4 01/22/20 24 pancrelipase, Pmf-Ceae-Umum, (Creon) [id number] units capsule Take 2 capsules by mouth [...] mg) by mouth every night. 7 tablet 4 01/22/20 24 documented as of this encounter Miscellaneous Notes * ED Provider Notes - Kayla Ramos MD - 12/14/2023 8:26 AM EDT - HPI Chief Complaint Patient presents with Abdominal Pain Lila Mcnally is a 37 y.o. female with past medical history significant for anxiety, depression,GERD, HTN, pancreatitis, arthritis, fibromyalgia who presents to the ED with abdominal pain. Pt c/oepigastric abdominal pain that worsened Thursday night, and is now radiating into her back and debilitating . She reports 4 episodes of vomiting since last night and water like diarrhea. She states current pain is different from sx that required admission 12/01, but is consistent with previous pancreatitis flares. She states Compazine and Droperidol cause dystonic reaction and Tramadol causesHTN. She denies urinary symptoms. Patient has no other complaints at this time. 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 by: Patient interpreter deaf used: No Patient History Past Medical History: Diagnosis Date Anxiety Arthritis Depression Fibromyalgia Gastric erosions 04/19/2021 GERD (gastroesophageal reflux disease) Hypertension Intentional overdose ([facility]) 12/20/2021 Nicotine dependence Obesity Pancreatitis Past Surgical [...] attacks too. Physical Exam ED Triage Vitals [12/14/23 0848] Temp Heart Rate Resp BP 36.8 ??C (98.2 ??F) 101 20 (!) 142/77 SpO2 Temp Source Heart Rate Source Patient Position 100 % Oral -- Sitting BP Location FiO2 (%) Right arm -- Physical Exam Constitutional: General: She is not in acute distress. HENT: Head: Normocephalic. Comments: No facial swelling Mouth/Throat: Mouth: Mucous membranes are dry. Pharynx: Oropharynx is clear. No oropharyngeal exudate or posterior oropharyngeal erythema. Cardiovascular: Rate and Rhythm: Tachycardia present. Comments: Borderline tachycardic Pulmonary: Effort: Pulmonary effort is normal. No respiratory distress. Breath sounds: Normal air entry. Comments: Speaking full sentences. Symmetric chest rise Abdominal: General: Abdomen is flat. There is no distension. Palpations: Abdomen is soft. There is no mass. Tenderness: There is abdominal tenderness. There is no guarding or rebound. Comments: Epigastric tenderness Musculoskeletal: General: No deformity. Normal range of motion. Cervical back: Normal range of motion. Comments: Atraumatic, moves all extremities spontaneously Skin: General: Skin is warm and dry. Neurological: Mental Status: She is alert. Mental status is at baseline. Comments: Awake Psychiatric: Behavior: Behavior normal. Jo Coma Scale Score: 15 ED Course & MDM Date/Time: 12/14/2023/9:01 AM Scribe Attestation: This note was dictated to me, Vianney Sanchez, acting as a scribe for Dr. Kayla Ramos. Attending Attestation: The documentation was recorded by Vianney Sanchez acting as scribe in my presence at the time of the encounter and accurately reflects the service I personally performed. - Assessment: 37 y.o. female presents to ED with complaint of abdominal pain. It should be noted that the chronicconditions includes functional abdominal pain, which currently is not at goal therapy. This complicates the clinical picture because it Comorbidities: may be exacerbating symptoms, increases the amount and complexity of data to be reviewed, complicates the clinical workup, and increases the risk for morbidity Differential Diagnosis: pancreatitis vs SBO vs cholecystitis vs PUD vs ectopic pregnacy vs UTI In order to fully explore the differential diagnosis the following treatments and tests were ordered: ED Course as of 12/14/23 1617 ThuDec 14, 2023 0953 Lactate: 1.9 [EK] 0953 Blood gas panel, venous(!) [EK] 1055 Hemoglobin(!): 9.7 [EK] 1055 CBC w/diff(!) [EK] ED Course User Index [EK] Kayla Ramos MD Clinical Impressions as of 12/14/23 1617 Abdominal pain, unspecified abdominal location Social Determinates of Health Risks (including Economic Stability, Education and level of understanding, Healthcare access and quality and concerning social factors): None identified on this visit Last PDMP Review: Kayla Ramos MD on 12/14/2023 8:52 AM Labs without acute abnormality. Anemia Hgb 9.7 near baseline. Na mildly decreased likely 2/2 volume loss from diarrhea. negative. UA without evidence of UTI Pt received IVF and 2 rounds of 0.5 mg dilaudid IV and 1 dose of 5 mg oxycodone with partial improvement of symptoms. Pt declined admission and preferred outpatient trial. Ramses reviewed. Given short course of Rx oxycodone and zofran. Risks/benefit of opiate use discussed. She has outpatient follow up with GI in one [facility]. Return precautions discussed. ED Prescriptions None - Kayla Ramos MD 12/14/23 1621 * ED Triage Notes - Kathy Arango RN - 12/14/2023 8:26 AM EDT Complains of abdominal pain with n/v/diarrhea onset yesterday. States history of pancreatitis documented in this encounter Plan of Treatment Not on file documented as of this encounter Procedures Procedure Name Priority Date/Time Associated Diagnosis Comments CBC WITH AUTO DIFFERENTIAL STAT 12/14/2023 10:34 AM EDT COMPREHENSIVE METABOLIC PANEL, PLASMA STAT 12/14/2023 10:34 AM EDT EXTRA TUBE URINE GUNTER Routine 12/14/2023 9:52 AM EDT URINALYSIS WITH REFLEX MICROSCOPIC STAT 12/14/2023 9:49 AM EDT TEST QUALITATIVE PLASMA STAT 12/14/2023 9:41 AM EDT LIPASE, PLASMA STAT 12/14/2023 9:41 AM EDT BLOOD GAS PANEL, VENOUS STAT 12/14/2023 9:41 AM EDT COMPREHENSIVE METABOLIC PANEL, PLASMA STAT 12/14/2023 9:41 AM EDT documented in this encounter Results * (ABNORMAL) CMP (12/14/2023 10:34 AM EDT) Glucose, Plasma 76 74 - 99 mg/dL 12/14/2023 11:13 AM EDT [facility] BUN, Plasma 16 7 - 21 mg/dL 12/14/2023 11:13 AM EDT [facility] Creatinine, Plasma 0.55(L) 0.60 - 1.10 mg/dL 12/14/2023 11:13 AM EDT [facility] BUN/Creatinine Ratio 29 12/14/2023 11:13 AM EDT [facility] Sodium, Plasma 132(L) 136 - 145 mmol/L 12/14/2023 11:13 AM EDT [facility] Potassium, Plasma 4.1 3.6 - 4.9 mmol/L 12/14/2023 11:13 AM EDT [facility] Chloride, Plasma 99 97 - 107 mmol/L 12/14/2023 11:13 AM EDT [facility] CO2, Plasma 23 22 - 29 mmol/L 12/14/2023 11:13 AM EDT [facility] Anion Gap 10 6 - 16 mmol/L 12/14/2023 11:13 AM EDT [facility] Total Calcium, Plasma 8.2(L) 8.9 - 10.2 mg/dL 12/14/2023 11:13 AM EDT [facility] Total Protein 6.3 6.3 - 7.9 g/dL 12/14/2023 11:13 AM EDT [facility] Albumin, Plasma 3.8 3.5 - 5.2 g/dL 12/14/2023 11:13 AM EDT [facility] AST, Plasma 14 10 - 35 U/L 12/14/2023 11:13 AM EDT [facility] ALT, Plasma 11 10 - 35 U/L 12/14/2023 11:13 AM EDT [facility] Alkaline Phosphatase, Plasma 85 35 - 104 U/L 12/14/2023 11:13 AM EDT [facility] Total Bilirubin, Plasma 0.3 0.2 - 1.1 mg/dL 12/14/2023 11:13 AM EDT [facility] eGFRcr 122.0 mL/min/1.7 3m*2 12/14/2023 11:13 AM EDT [facility] Comment:Reported eGFRcr in m L/min/1.73m2 is based the CKD-EPI 2020 equation that does not use a race coefficient. Blood Venous blood specimen / Unknown Venipuncture / Unknown 12/14/2023 10:34 AM EDT 12/14/2023 10:37 AM EDT us Kayla Ramos MD LAB BLOOD ORDERABLES Final Resul t [facility] [address] [place] [address] * (ABNORMAL) CBC w/diff (12/14/2023 10:34 AM EDT) WBC Count 6.23 3.70 - 10.30 10*3/uL LAB HEMATOLOGY METHOD 12/14/2023 10:54 AM EDT [facility] RBC Count 3.78(L) 3.90 - 5.20 10*6/uL LAB HEMATOLOGY METHOD 12/14/2023 10:54 AM EDT [facility] HGB 9.7(L) 11.2 - 15.7 g/dL LAB HEMATOLOGY METHOD 12/14/2023 10:54 AM EDT [facility] HCT 31.5(L) 34.0 - 45.0 % LAB HEMATOLOGY METHOD 12/14/2023 10:54 AM EDT [facility] Platelet Count 216 155 - 369 10*3/uL LAB HEMATOLOGY METHOD 12/14/2023 10:54 AM EDT [facility] MCV 83 79 - 98 fL LAB HEMATOLOGY METHOD 12/14/2023 10:54 AM EDT [facility] MCH 25.7(L) 26.0 - 32.0 pg LAB HEMATOLOGY METHOD 12/14/2023 10:54 AM EDT [facility] MCHC 30.8 30.7 - 35.5 g/dL LAB HEMATOLOGY METHOD 12/14/2023 10:54 AM EDT [facility] RDW 16.6(H) 11.5 - 14.5 % LAB HEMATOLOGY METHOD 12/14/2023 10:54 AM EDT [facility] MPV 9.9 8.8 - 12.5 fL LAB HEMATOLOGY METHOD 12/14/2023 10:54 AM EDT [facility] nRBC 0.0 <=0.0 per 100 WBCs LAB HEMATOLOGY METHOD 12/14/2023 10:54 AM EDT [facility] Differential Type Automated LAB HEMATOLOGY METHOD 12/14/2023 10:54 AM EDT [facility] Neutrophils % 52 % LAB HEMATOLOGY METHOD 12/14/2023 10:54 AM EDT [facility] Lymphocytes % 36 % LAB HEMATOLOGY METHOD 12/14/2023 10:54 AM EDT [facility] Monocytes % 8 % LAB HEMATOLOGY METHOD 12/14/2023 10:54 AM EDT [facility] Eosinophils % 2 % LAB HEMATOLOGY METHOD 12/14/2023 10:54 AM EDT [facility] Basophils % 1 % LAB HEMATOLOGY METHOD 12/14/2023 10:54 AM EDT [facility] Immature Granulocytes % 1 % LAB HEMATOLOGY METHOD 12/14/2023 10:54 AM EDT [facility] Neutrophils Absolute 3.26 1.60 - 6.10 10*3/uL LAB HEMATOLOGY METHOD 12/14/2023 10:54 AM EDT [facility] Lymphocytes Absolute 2.26 1.20 - 3.90 10*3/uL LAB HEMATOLOGY METHOD 12/14/2023 10:54 AM EDT [facility] Monocytes Absolute 0.47 0.30 - 0.90 10*3/uL LAB HEMATOLOGY METHOD 12/14/2023 10:54 AM EDT [facility] Eosinophils Absolute 0.15 0.00 - 0.50 10*3/uL LAB HEMATOLOGY METHOD 12/14/2023 10:54 AM EDT [facility] Basophils Absolute 0.06 0.00 - 0.10 10*3/uL LAB HEMATOLOGY METHOD 12/14/2023 10:54 AM EDT [facility] Immature Granulocytes Absolute 0.03 0.00 - 0.06 10*3/uL LAB HEMATOLOGY METHOD 12/14/2023 10:54 AM EDT [facility] Blood Venous blood specimen / Unknown Venipuncture / Unknown 12/14/2023 10:34 AM EDT 12/14/2023 10:37 AM EDT Narrative [facility] - 12/14/2023 10:54 AM EDT Therapeutic decision making should be based on absolute values, rather than percentages. us Kayla Ramos MD LAB BLOOD ORDERABLES Final Resul t Performing Organization Address City/[facility] Co de Phone Number [facility] [address] [place] [address] * Urine Gunter (12/14/2023 9:52 AM EDT) Urine Gunter Hold for add-ons 12/14/2023 12:01 PM EDT [facility] Comment:Hold for add-ons Urine Urine specimen obtained by clean catch procedure / Unknown Non-blood Collection / Unknown 12/14/2023 9:52 AM EDT 12/14/2023 9:52 AM EDT us Kayla Ramos MD LAB URINE ORDERABLES Final Resul t Performing Organization Address City/[facility] Co de Phone Number [facility] [address] [place] [address] * Urinalysis with reflex microscopic (Culture NOT Included) (12/14/2023 9:49 AM EDT) Color, Urine Yellow LAB URINALYSIS - AUTOMATED METHOD 12/14/2023 10:05 AM EDT [facility] Clarity, Urine Clear LAB URINALYSIS - AUTOMATED METHOD 12/14/2023 10:05 AM EDT [facility] Spec [place], Urine 1.023 1.005 - 1.030 LAB URINALYSIS - AUTOMATED METHOD 12/14/2023 10:05 AM EDT [facility] pH, Urine 6.0 4.5 to 8 LAB URINALYSIS - AUTOMATED METHOD 12/14/2023 10:05 AM EDT [facility] Protein, Urine Negative Negative mg/dL LAB URINALYSIS - AUTOMATED METHOD 12/14/2023 10:05 AM EDT [facility] Glucose, Urine Negative Negative mg/dL LAB URINALYSIS - AUTOMATED METHOD 12/14/2023 10:05 AM EDT [facility] Ketones, Urine Negative Negative mg/dL LAB URINALYSIS - AUTOMATED METHOD 12/14/2023 10:05 AM EDT [facility] Blood, Urine Negative Negative LAB URINALYSIS - AUTOMATED METHOD 12/14/2023 10:05 AM EDT [facility] Bilirubin, Urine Negative Negative LAB URINALYSIS - AUTOMATED METHOD 12/14/2023 10:05 AM EDT [facility] Urobilinogen, Urine 1.0 0.2 to 1.0 mg/dL LAB URINALYSIS - AUTOMATED METHOD 12/14/2023 10:05 AM EDT [facility] Leukocytes, Urine Negative Negative LAB URINALYSIS - AUTOMATED METHOD 12/14/2023 10:05 AM EDT [facility] Nitrite, Urine Negative Negative LAB URINALYSIS - AUTOMATED METHOD 12/14/2023 10:05 AM EDT [facility] Urine Urine specimen obtained by clean catch procedure / Unknown Non-blood Collection / Unknown 12/14/2023 9:49 AM EDT 12/14/2023 9:51 AM EDT us Kayla Ramos MD LAB URINE ORDERABLES Final Resul t Performing Organization Address City/[facility] Co de Phone Number [facility] [address] [place] [address] * hCG qualitative (12/14/2023 9:41 AM EDT) Test Negative Negative 12/14/2023 10:08 AM EDT [facility] Blood Venous blood specimen / Unknown Venipuncture / Unknown 12/14/2023 9:41 AM EDT 12/14/2023 9:44 AM EDT Narrative [facility] - 12/14/2023 10:08 AM EDT Reference Range: Males and non- females: Negative. us Kayla Ramos MD LAB BLOOD ORDERABLES Final Resul t Performing Organization Address City/[facility]/ZIP Co de Phone Number [facility] [address] [place] [address] * (ABNORMAL) Blood gas panel, venous (12/14/2023 9:41 AM EDT) pH, Venous 7.36 7.32 - 7.43 LAB HEMATOLOGY METHOD 12/14/2023 9:47 AM EDT [facility] pCO2, Venous 42 37 - 52 mmHg LAB HEMATOLOGY METHOD 12/14/2023 9:47 AM EDT [facility] pO2, Venous 41(H) 25 - 40 mmHg LAB HEMATOLOGY METHOD 12/14/2023 9:47 AM EDT [facility] SO2, Measured, Venous 76 65 - 80 % LAB HEMATOLOGY METHOD 12/14/2023 9:47 AM EDT [facility] Base Excess, Venous -1.6 -2.0 - 3.0 mmol/L LAB HEMATOLOGY METHOD 12/14/2023 9:47 AM EDT [facility] Bicarbonate, Calculated, Venous 24 22 - 26 mmol/L LAB HEMATOLOGY METHOD 12/14/2023 9:47 AM EDT [facility] Hematocrit, Whole Blood 30.1(L) 34.0 - 45.0 % LAB HEMATOLOGY METHOD 12/14/2023 9:47 AM EDT [facility] Sodium, Whole Blood 132(L) 136 - 145 mmol/L LAB HEMATOLOGY METHOD 12/14/2023 9:47 AM EDT [facility] Potassium, Whole Blood 4.1 3.6 - 4.9 mmol/L LAB HEMATOLOGY METHOD 12/14/2023 9:47 AM EDT [facility] Chloride, Whole Blood 100 97 - 107 mmol/L LAB HEMATOLOGY METHOD 12/14/2023 9:47 AM EDT [facility] Glucose, Whole Blood 88 74 - 99 mg/dL LAB HEMATOLOGY METHOD 12/14/2023 9:47 AM EDT [facility] Lactate, Venous, Whole Blood 1.9 0.5 - 2.2 mmol/L LAB HEMATOLOGY METHOD 12/14/2023 9:47 AM EDT [facility] Ionized Calcium, Whole Blood 4.6 4.6 - 5.1 mg/dL LAB HEMATOLOGY METHOD 12/14/2023 9:47 AM EDT [facility] Blood Venous blood specimen / Unknown Venipuncture / Unknown 12/14/2023 9:41 AM EDT 12/14/2023 9:44 AM EDT Kayla Ramos MD LAB BLOOD ORDERABLES Final Resul t [facility] [address] [place] [address] * Lipase (12/14/2023 9:41 AM EDT) Lipase, Plasma 42 19 - 63 U/L 12/14/2023 10:08 AM EDT [facility] Blood Venous blood specimen / Unknown Venipuncture / Unknown 12/14/2023 9:41 AM EDT 12/14/2023 9:44 AM EDT Kayla Ramos MD LAB BLOOD ORDERABLES Final Resul t Performing Organization Address City/[facility] Co de Phone Number [facility] [address] [place] [address] * (ABNORMAL) CMP (12/14/2023 9:41 AM EDT) Glucose, Plasma 92 74 - 99 mg/dL 12/14/2023 10:08 AM EDT [facility] BUN, Plasma 16 7 - 21 mg/dL 12/14/2023 10:08 AM EDT [facility] Creatinine, Plasma 0.53(L) 0.60 - 1.10 mg/dL 12/14/2023 10:08 AM EDT [facility] BUN/Creatinine Ratio 30 12/14/2023 10:08 AM EDT [facility] Sodium, Plasma 130(L) 136 - 145 mmol/L 12/14/2023 10:08 AM EDT [facility] Potassium, Plasma 4.6 3.6 - 4.9 mmol/L 12/14/2023 10:08 AM EDT [facility] Comment:Hemolyzed, result ma y be falsely increased. Chloride, Plasma 98 97 - 107 mmol/L 12/14/2023 10:08 AM EDT [facility] CO2, Plasma 22 22 - 29 mmol/L 12/14/2023 10:08 AM EDT [facility] Anion Gap 10 6 - 16 mmol/L 12/14/2023 10:08 AM EDT [facility] Total Calcium, Plasma 8.4(L) 8.9 - 10.2 mg/dL 12/14/2023 10:08 AM EDT [facility] Total Protein 6.4 6.3 - 7.9 g/dL 12/14/2023 10:08 AM EDT [facility] Albumin, Plasma 3.9 3.5 - 5.2 g/dL 12/14/2023 10:08 AM EDT [facility] AST, Plasma 22 10 - 35 U/L 12/14/2023 10:08 AM EDT [facility] Comment:Hemolyzed, result ma y be falsely increased. ALT, Plasma 12 10 - 35 U/L 12/14/2023 10:08 AM EDT [facility] Alkaline Phosphatase, Plasma 84 35 - 104 U/L 12/14/2023 10:08 AM EDT [facility] Total Bilirubin, Plasma 0.2 0.2 - 1.1 mg/dL 12/14/2023 10:08 AM EDT [facility] eGFRcr 123.1 mL/min/1.7 3m*2 12/14/2023 10:08 AM EDT [facility] Comment:Reported eGFRcr in m L/min/1.73m2 is based the CKD-EPI 2020 equation that does not use a race coefficient. Blood Venous blood specimen / Unknown Venipuncture / Unknown 12/14/2023 9:41 AM EDT 12/14/2023 9:44 AM EDT us Kayla Ramos MD LAB BLOOD ORDERABLES Final Resul t [facility] [address] [place] [id number] documented in this encounter Visit Diagnoses Diagnosis Abdominal pain, unspecified abdominal location- Primary documented in this encounter Administered Medications Inactive Administered Medications - up to 3 most recent administrations Medication Order MAR Action Action Date Dose Rate Site HYDROmorphone (Dilaudid) injection 0.5 mg 0.5 mg, Intravenous, Once, 1 dose, On Thu12/14/23 at 0900, Routine Given 12/14/2023 9:51 AM EDT 0.5 mg HYDROmorphone (Dilaudid) injection 0.5 mg 0.5 mg, Intravenous, Once, 1 dose, On Thu12/14/23 at 1025, Routine Given 12/14/2023 10:35 AM EDT 0.5 mg ondansetron (Zofran) injection 4 mg 4 mg, Intravenous, Once, 1 dose, On Thu12/14/23 at 0900, STAT Given 12/14/2023 9:51 AM EDT 4 mg oxyCODONE (Roxicodone) immediate release tablet 5 mg 5 mg, Oral, Once, 1 dose, On Thu12/14/23 at 1145, STAT Given 12/14/2023 11:56 AM EDT 5 mg sodium chloride 0.9 % bolus 500 mL 500 mL, Intravenous, Once, 1 dose, On Thu12/14/23 at 0900, Administer over 15 Minutes, Routine New Bag 12/14/2023 9:51 AM EDT 500 mL 2000 mL/hr documented in this encounter Active and Recently Administered Medications Times are shown in EDT. Scheduled Medication Order 12/12/2023 12/13/2023 12/14/2023 HYDROmorphone (Dilaudid) injection 0.5 mg (COMPLETED) 0.5 mg, Intravenous, Once, 1 dose, On Thu12/14/23 at 0900, Routine 0951 (Given - Provid er: Andrew Gonzalez RN) HYDROmorphone (Dilaudid) injection 0.5 mg (COMPLETED) 0.5 mg, Intravenous, Once, 1 dose, On Thu12/14/23 at 1025, Routine 1035 (Given - Provid er: Oni Mcclelland Jr.) ondansetron (Zofran) injection 4 mg (COMPLETED) 4 mg, Intravenous, Once, 1 dose, On Thu12/14/23 at 0900, STAT 0951 (Given - Provid er: Andrew Gonzalez RN) oxyCODONE (Roxicodone) immediate release tablet 5 mg (COMPLETED) 5 mg, Oral, Once, 1 dose, On Thu12/14/23 at 1145, STAT 1156 (Given - Provid er: Lia Purcell) sodium chloride 0.9 % bolus 500 mL (COMPLETED) 500 mL, Intravenous, Once, 1 dose, On Thu12/14/23 at 0900, Administer over 15 Minutes, Routine 0951 (New Bag - Prov ider: Andrew Gonzalez RN)1153 (Stopped - Provider: Lia Purcell) documented in this encounter Additional Health Concerns Assessment Noted Time A fall risk assessment has been complete d for the patient 11/21/2020 2:30 PM EDT A Body Mass Index follow-up plan has been documented for the patient 10/28/2023 1:22 PM EDT documented as of this encounter Care Teams Braid Pattern Setter Relationship Specialty Start Date End Date Lisa Foote APRN [address] [place], [place] [id number] PCP - General 10/23/23 Cally Tilley LPN VALUE-BASED [place] [address] TCM Nurse 12/03/23 01/01/24 documented as of this encounter
--- OUTSIDE RECORDS SUMMARY | 2024-02-03 15:08 | XMS_ITS | Encounter Summary ---
Author Organization Healthcare Address [address] [place] [address] Care Team Providers Care Whale Fisherman Name Role Phone Lisa Foote ESTEBAN Primary Care Provider [phone] Cally Tilley LPN Unavailable Unavailable Reason for Referral * Consultation (Routine) - Authorized Specialty Diagnoses / Procedures Referred By Susy burks Referred To Contact Gastroenterology Diagnoses Chronic abdominal pain Gela Velasco MD [facility] [place] [address] Phone: tel: fax: Referral ID Status Reason Start Date Expiration Date Visits Requested Visits Authorized [id number] Authorized Specialty Services Required 12/26/2023 06/26/2025 1 1 Reason for Visit * Reason Comments Abdominal Pain Encounter Details Date Type Department Care Team (Late st Contact Info) Description 12/26/2023 3:27 AM EDT - 12/26/2023 8:52 AM EDT Emergency [facility] Emergency Department [address] [place] [address] Mariel Sorto MD [facility] [place] [address] Gela Velasco MD [facility] [place] [address] Chronic abdominal pain (Primary Dx) Discharge Disposition: [...] place to sleep or slept in a custodial (including now)? No 10/27/2023 CAGE ASSESSMENT Answer [...] drink first t caleb in the morning (EYE-PROJECT CONTROL ANALYST) to steady your nerves or to get rid of a hangover? 0 10/24/2023 CAGE Questionnaire Score 0 024 Utilities Answer Date Recorded In the past 12 months has th [place], gas, oil, or water company threatened to [...] Sign Reading Time Taken Comments Blood Pressure 142/93 12/26/2023 6:42 AM EDT Pulse 90 12/26/2023 6:42 AM EDT Temperature 36.8 ??C (98.3 ??F) 12/26/2023 6:42 AM ED T Respiratory Rate 18 12/26/2023 6:42 AM EDT Oxygen Saturation 96% 12/26/2023 6:42 AM EDT Inhaled Oxygen Concentration - - Weight 94.8 kg (209 lb) 12/26/2023 3:26 AM EDT Height 165.1 cm (5' 5 ) 12/26/2023 3:26 AM EDT Body Mass Index 34.78 12/26/2023 3:26 AM EDT documented in this encounter Functional Status [...] this encounter Discharge Instructions * Discharge Instructions* Silvestre Siddiqi MD - 12/26/2023 7:37 AM EDT You have been evaluated in the Emergency Department. Your evaluation was not suggestive of any emergent condition requiring medical intervention at this time. It is important to be aware of any new or worsening symptoms, as some problems may take longer to appear. Please follow up with your primary care physician within one to two days. Return to the Emergency Department if you experience worsening pain, persistent fevers greater [id number], recurrent vomiting, lethargy, seizures, shortness of breath, or any other concerning symptoms. Thank you for choosing us for your care. documented in this encounter Medications at Time [...] (six) hours if needed for pain. Under [place] law, monthly prescriptions (30 days) can be [...] pain. 30 tablet 4 01/22/20 24 pancrelipase, Oxh-Quxs-Encq, (Creon) [id number] units capsule Take 2 capsules by mouth [...] Miscellaneous Notes * ED Provider Notes - Walt Elliott DO - 12/26/2023 3:24 AM EDT - HPI Chief Complaint Patient presents with Abdominal Pain HPI Patient is a 38-year-old female presenting to the emergency department for further evaluation of acute on chronic left-sided abdominal pain. Patient was given a medical history relevant for anxiety/depression, fibromyalgia, hypotension, GERD, prior gallstone pancreatitis, status post cholecystectomy presenting to the emergency department today for acute on chronic left-sided abdominal pain. Patient states the pain began acutely worse on Thursday, and it was gotten worse throughout the week. Patient states that she was experienced vomiting, which worsens her pain. Patient states the current painthat is similar to that of previous. Patient denies recent fevers, cough, congestion, shortness of breath. Patient History Past Medical History: Diagnosis Date Anxiety Arthritis Depression Fibromyalgia Gastric erosions 04/19/2021 GERD (gastroesophageal reflux disease) Hypertension Intentional overdose ([facility]) 12/20/2021 Nicotine dependence Obesity Pancreatitis Past Surgical [...] too. Physical Exam ED Triage Vitals [12/26/23 0326] Temp Heart Rate Resp BP 36.6 ??C (97.8 ??F) 101 18 (!) 152/91 SpO2 Temp Source Heart Rate Source Patient Position 99 % Oral -- Sitting BP Location FiO2 (%) Right arm -- Physical Exam Vitals and nursing note reviewed. Constitutional: Appearance: She is well-developed and normal weight. She is not ill-appearing. HENT: Head: Normocephalic. Mouth/Throat: Mouth: Mucous membranes are moist. Eyes: Extraocular Movements: Extraocular movements intact. Cardiovascular: Rate and Rhythm: Normal rate. Heart sounds: Normal heart sounds. Pulmonary: Effort: Pulmonary effort is normal. Breath sounds: Normal breath sounds. Abdominal: General: Abdomen is flat. Palpations: Abdomen is soft. Tenderness: There is generalized abdominal tenderness and tenderness in the epigastric area and left upper quadrant. Skin: General: Skin is warm. Capillary Refill: Capillary refill takes less than 2 seconds. Neurological: Mental Status: She is alert and oriented to person, place, and time. Jo Coma Scale Score: 15 ED Course & MDM - Assessment: 38 y.o. female presents to ED with complaint of left-sided abdominal pain. It should be noted that the chronic conditions includes pancreatitis status post ERCP status post cholecystectomy, fibromyalgia, anxiety/depression, which currently is not at goal therapy. This complicates the clinical picture because it Comorbidities: may be exacerbating symptoms and increases the amount and complexity ofdata to be reviewed Differential Diagnosis: Gastritis, pancreatitis, pyelonephritis, nephrolithiasis, cannabis hyperemesis, among others. In order to fully explore the differential diagnosis the following treatments and tests were ordered: ED Medication Administration from 12/26/2023 0324 to 12/26/2023 0727 Date/Time Order Dose Route Action 12/26/2023 0414 EDT ondansetron (Zofran) injection 4 mg 4 mg Intravenous Given 12/26/2023 05 EDT gi cocktail oral solution 30 mL 30 mL Oral Given 12/26/2023 05 EDT HYDROmorphone (Dilaudid) injection 0.5 mg 0.5 mg Intravenous Given 12/26/2023 0642 EDT ondansetron (Zofran) injection 4 mg 4 mg Intravenous Given 12/26/2023 0642 EDT oxyCODONE (Roxicodone) immediate release tablet 5 mg 5 mg Oral Given All Other Orders Ordered Status Ordering Provider 12/26/23350 STAT Canceled NOREEN, MARIEL 12/26/23350 PROCEDURE ONCE Canceled NOREEN, MARIEL 12/26/23350 PROCEDURE ONCE Canceled NOREEN, MARIEL 12/26/23350 NPO diet Diet effective now Comments: Check with MD before giving PO meds for pain control Acknowledged NOREEN, MARIEL 12/26/23350 CBC and Differential STAT Final result NOREEN, MARIEL 12/26/23350 CMP STAT Final result NOREEN, MARIEL 12/26/23350 Lactate, venous STAT Final result NOREEN, MARIEL 12/26/23350 Lipase STAT Final result NOREEN, MARIEL 12/26/23350 Test Qualitative Plasma STAT Final result NOREEN, MARIEL 12/26/23350 Insert peripheral IV Once Completed NOREEN, MARIEL 12/26/23325 EKG now - STAT (adult) Once Preliminary result NOREEN, MARIEL Social Determinates of Health Risks (including Economic Stability, Education and level of understanding, Healthcare access and quality and concerning social factors): Lives far away This is a 38-year-old female presenting to the emergency department with acute on chronic abdominalpain. Patient states the pain began on Thursday, it was worsened throughout the week. Medical record review indicates the patient has been seen frequently in the emergency department for similar symptoms. On initial examination, the patient is sitting upright in hospital stretcher uncomfortable in appearance but in no apparent distress. Patient presents with a generally tender abdomen that is most tender in left upper quadrant. Patient states that she has been vomiting, but denies blood. Laboratory evaluation demonstrated a white blood cell count was 6.14, hemoglobin of 11.3, lactate of 2.2, creatinine 0.53, potassium of 3.8, lipase of 41. Patient was administered 0.5 milligrams of IV Dilaudid, given a GI cocktail. Patient also received 4 milligrams of Zofran, it was given a 5 milligram tablet of oxycodone. Patient was signed out to oncoming provider pending successful by mouth challenge, reassessment, proper disposition. For final disposition the patient see transfer of care note. Ultimately, this patient was was signed out to the oncoming provider (Signed Out) Patient care assumed by oncoming provider, Devang, at shift change, tentative plan at the time of sign-out was successful by mouth challenge, reassessment, proper disposition. ED Prescriptions None - Walt Elliott DO Resident 12/26/23 0732 Cosigned by Mariel Sorto MD at 12/27/2023 6:29 PM EST Associated attestation - Mariel Sorto MD - 12/27/2023 6:29 PM EST I saw and evaluated the patient with the resident/fellow. I discussed the case with the resident/fellow and agree with the findings and plan as documented. * ED Triage Notes - Roselia Malhotra RN - 12/26/2023 3:24 AM EDT Pt here for abdominal pain. Pt states that she was here a few days ago and is getting much worse. Endorses vomiting. * Progress Notes - Silvestre Siddiqi MD - 12/26/2023 3:24 AM EDT TRANSFER OF CARE NOTE Transferring provider: Earl Transferring attending: Noreen ROSADO Time: 645 I received sign-out and accepted care of this patient from the previous ED providers caring for this patient. I reviewed the patient's history, exam, work- up, and treatment plan up to this point. Please see the primary ED Provider Note for complete elements of the history, physical exam, and ED course. PERTINENT HISTORY: In brief, Lila Mcnally is a 38 y.o. female who presented to the ED for evaluation of acute on chronic abdominal pain. Reported history of pancreatitis however numerous frequentCT and MRI imaging over recent years have never demonstrated pancreatitis. She just had normal CT abdominal imaging within the past week so repeat imaging was not performed today. Her basic labs and GI labs today were unremarkable. Transfer of care to wi pending symptomatic reassessments This patient has a past medical history of Anxiety, Arthritis, Depression, Fibromyalgia, Gastric erosions (04/19/2021), GERD (gastroesophageal reflux disease), Hypertension, Intentional overdose ([facility]) (12/20/2021), Nicotine dependence, Obesity, and Pancreatitis. ED TREATMENT SUMMARY: DIAGNOSTIC RESULTS: Lab Results: Labs in last 18 hours CBC WBC 6.14 Hb 11.3 Plt 261 Hct 35.9 ANC 3.30 INR ??, PTT ??, Anti-Xa ?? BMP Na 141 Cl 106 BUN 13 Glu 114 (H) K 3.8 Co2 22 Cr 0.53 (L) Ca 8.8 (L) iCa ?? Mg ??, Phos ?? Lactate ?? LFT AST 10 AlkPhos 95 T Prot 6.1 (L) ALK 13 Bili <0.2 (L) Alb ?? D.Bili ?? PENDING: I accepted care of this patient from the previous provider pending symptomatic improvement. Ultimately, on reassessment: The patient was able to tolerate PO intake, was amenable to discharge, upon repeat evaluation. She already has follow up scheduled with GI and pain management later thismonth. She has many recent normal CT abdomen is. Her labs were unremarkable. She is tolerating by mouth. No indication for further workup treatment at this time. Patient repeatedly requesting additional IV or by mouth opioids but discussed with her that this is not indicated at this time. She will follow up with GI and pain management as scheduled. Ultimately, this patient Was discharged Home (Discharge) The encounter diagnosis was Chronic abdominal pain. . Patient was counseled on the diagnoses. Discharge medications if any are listed below. Listed medications are thought be either curative for listed diagnoses or will help control ongoing symptoms. Patient is requested to follow up with Patient's Primary Care Provider, GI, and pain management in order to obtain routine follow-up andspecialty care. Instructions on follow up as well as precautions to return to the ER provided verbally by the EM provider, as well as written in patients discharge education packet. Silvestre Siddiqi MD Cosigned by Gela Velasco MD at 12/26/2023 5:43 PM EDT Associated attestation - Gela Velasco MD - 12/26/2023 5:43 PM EDT I saw and evaluated the patient with the resident/fellow. I discussed the case with the resident/fellow and agree with the findings and plan as documented. documented in this encounter Plan of Treatment Scheduled Referrals Name Type Priority Associated Diagnoses Order Schedule Discharge Ambulatory referral to Gastroenterology Outpatient Referral Routine Chronic abdominal pain 1 Occurrences starting 12/26/2023 until 06/24/2025 documented as of this encounter Procedures Procedure Name Priority Date/Time Associated Diagnosis Comments LACTATE, VENOUS STAT 12/26/2023 4:14 AM EDT CBC WITH AUTO DIFFERENTIAL STAT 12/26/2023 4:14 AM EDT TEST QUALITATIVE PLASMA STAT 12/26/2023 4:14 AM EDT LIPASE, PLASMA STAT 12/26/2023 4:14 AM EDT COMPREHENSIVE METABOLIC PANEL, PLASMA STAT 12/26/2023 4:14 AM EDT ECG ADULT STAT 12/26/2023 3:30 AM EDT documented in this encounter Results * Test Qualitative Plasma (12/26/2023 4:14 AM EDT) Pathologist [facility] Test Negative Negative 12/26/2023 4:56 AM EDT [facility] Blood Venous blood specimen / Unknown Venipuncture / Unknown 12/26/2023 4:14 AM EDT 12/26/2023 4:25 AM EDT Narrative [facility] - 12/26/2023 4:56 AM EDT Reference Range: Males and non- females: Negative. Mariel Sorto MD LAB BLOOD ORDERABLES Final Resu lt [facility] [address] [place] [address] * Lipase (12/26/2023 4:14 AM EDT) [facility] Lipase, Plasma 41 19 - 63 U/L 12/26/2023 4:56 AM EDT [facility] Blood Venous blood specimen / Unknown Venipuncture / Unknown 12/26/2023 4:14 AM EDT 12/26/2023 4:25 AM EDT Mariel Sorto MD LAB BLOOD ORDERABLES Final Resu lt [facility] [address] [place] [address] * Lactate, venous (12/26/2023 4:14 AM EDT) [facility] Lactate, Venous, Whole Blood 2.2 0.5 - 2.2 mmol/L LAB HEMATOLOGY METHOD 12/26/2023 4:21 AM EDT [facility] Blood Venous blood specimen / Unknown Venipuncture / Unknown 12/26/2023 4:14 AM EDT 12/26/2023 4:19 AM EDT us Mariel Sorto MD LAB BLOOD ORDERABLES Final Resu lt [facility] [address] [place] [address] * (ABNORMAL) CMP (12/26/2023 4:14 AM EDT) Glucose, Plasma 114(H) 74 - 99 mg/dL 12/26/2023 4:56 AM EDT [facility] BUN, Plasma 13 7 - 21 mg/dL 12/26/2023 4:56 AM EDT [facility] Creatinine, Plasma 0.53(L) 0.60 - 1.10 mg/dL 12/26/2023 4:56 AM EDT [facility] BUN/Creatinine Ratio 25 12/26/2023 4:56 AM EDT [facility] Sodium, Plasma 141 136 - 145 mmol/L 12/26/2023 4:56 AM EDT [facility] Potassium, Plasma 3.8 3.6 - 4.9 mmol/L 12/26/2023 4:56 AM EDT [facility] Chloride, Plasma 106 97 - 107 mmol/L 12/26/2023 4:56 AM EDT [facility] CO2, Plasma 22 22 - 29 mmol/L 12/26/2023 4:56 AM EDT [facility] Anion Gap 13 6 - 16 mmol/L 12/26/2023 4:56 AM EDT [facility] Total Calcium, Plasma 8.8(L) 8.9 - 10.2 mg/dL 12/26/2023 4:56 AM EDT [facility] Total Protein 6.1(L) 6.3 - 7.9 g/dL 12/26/2023 4:56 AM EDT [facility] Albumin, Plasma 4.0 3.5 - 5.2 g/dL 12/26/2023 4:56 AM EDT [facility] AST, Plasma 10 10 - 35 U/L 12/26/2023 4:56 AM EDT [facility] Comment:Hemolyzed, result ma y be falsely increased. ALT, Plasma 13 10 - 35 U/L 12/26/2023 4:56 AM EDT [facility] Alkaline Phosphatase, Plasma 95 35 - 104 U/L 12/26/2023 4:56 AM EDT [facility] Total Bilirubin, Plasma <0.2(L) 0.2 - 1.1 mg/dL 12/26/2023 4:56 AM EDT [facility] eGFRcr 122.3 mL/min/1.7 3m*2 12/26/2023 4:56 AM EDT [facility] Comment:Reported eGFRcr in m L/min/1.73m2 is based the CKD-EPI 2020 equation that does not use a race coefficient. Blood Venous blood specimen / Unknown Venipuncture / Unknown 12/26/2023 4:14 AM EDT 12/26/2023 4:25 AM EDT us Mariel Sorto MD LAB BLOOD ORDERABLES Final Resu lt [facility] [address] [place] [address] * (ABNORMAL) CBC and Differential (12/26/2023 4:14 AM EDT) WBC Count 6.14 3.70 - 10.30 10*3/uL LAB HEMATOLOGY METHOD 12/26/2023 4:20 AM EDT [facility] RBC Count 4.35 3.90 - 5.20 10*6/uL LAB HEMATOLOGY METHOD 12/26/2023 4:20 AM EDT [facility] HGB 11.3 11.2 - 15.7 g/dL LAB HEMATOLOGY METHOD 12/26/2023 4:20 AM EDT [facility] HCT 35.9 34.0 - 45.0 % LAB HEMATOLOGY METHOD 12/26/2023 4:20 AM EDT [facility] Platelet Count 261 155 - 369 10*3/uL LAB HEMATOLOGY METHOD 12/26/2023 4:20 AM EDT [facility] MCV 83 79 - 98 fL LAB HEMATOLOGY METHOD 12/26/2023 4:20 AM EDT [facility] MCH 26.0 26.0 - 32.0 pg LAB HEMATOLOGY METHOD 12/26/2023 4:20 AM EDT [facility] MCHC 31.5 30.7 - 35.5 g/dL LAB HEMATOLOGY METHOD 12/26/2023 4:20 AM EDT [facility] RDW 16.1(H) 11.5 - 14.5 % LAB HEMATOLOGY METHOD 12/26/2023 4:20 AM EDT [facility] MPV 9.5 8.8 - 12.5 fL LAB HEMATOLOGY METHOD 12/26/2023 4:20 AM EDT [facility] nRBC 0.0 <=0.0 per 100 WBCs LAB HEMATOLOGY METHOD 12/26/2023 4:20 AM EDT [facility] Differential Type Automated LAB HEMATOLOGY METHOD 12/26/2023 4:20 AM EDT [facility] Neutrophils % 54 % LAB HEMATOLOGY METHOD 12/26/2023 4:20 AM EDT [facility] Lymphocytes % 35 % LAB HEMATOLOGY METHOD 12/26/2023 4:20 AM EDT [facility] Monocytes % 6 % LAB HEMATOLOGY METHOD 12/26/2023 4:20 AM EDT [facility] Eosinophils % 3 % LAB HEMATOLOGY METHOD 12/26/2023 4:20 AM EDT [facility] Basophils % 1 % LAB HEMATOLOGY METHOD 12/26/2023 4:20 AM EDT [facility] Immature Granulocytes % 1 % LAB HEMATOLOGY METHOD 12/26/2023 4:20 AM EDT [facility] Neutrophils Absolute 3.30 1.60 - 6.10 10*3/uL LAB HEMATOLOGY METHOD 12/26/2023 4:20 AM EDT [facility] Lymphocytes Absolute 2.14 1.20 - 3.90 10*3/uL LAB HEMATOLOGY METHOD 12/26/2023 4:20 AM EDT [facility] Monocytes Absolute 0.39 0.30 - 0.90 10*3/uL LAB HEMATOLOGY METHOD 12/26/2023 4:20 AM EDT [facility] Eosinophils Absolute 0.21 0.00 - 0.50 10*3/uL LAB HEMATOLOGY METHOD 12/26/2023 4:20 AM EDT [facility] Basophils Absolute 0.07 0.00 - 0.10 10*3/uL LAB HEMATOLOGY METHOD 12/26/2023 4:20 AM EDT [facility] Immature Granulocytes Absolute 0.03 0.00 - 0.06 10*3/uL LAB HEMATOLOGY METHOD 12/26/2023 4:20 AM EDT [facility] Blood Venous blood specimen / Unknown Venipuncture / Unknown 12/26/2023 4:14 AM EDT 12/26/2023 4:18 AM EDT Narrative [facility] - 12/26/2023 4:20 AM EDT Therapeutic decision making should be based on absolute values, rather than percentages. Mariel Sorto MD LAB BLOOD ORDERABLES Final Resu lt Performing Organization Address City/[facility] Co de Phone Number [facility] [address] [place] [address] * EKG now - STAT (adult) (12/26/2023 3:30 AM EDT) EKG DIAGNOSIS CLASS Borderline Normal MUSE ECG Ventricular Rate 94 BPM MUSE ECG Atrial Rate 94 BPM MUSE ECG MS Interval 108 ms MUSE ECG QRSD Interval 92 ms MUSE ECG QT Interval 352 ms MUSE ECG QTC Interval 440 ms MUSE ECG P [place] 38 degrees MUSE ECG R [place] 57 degrees MUSE ECG T Wave [place] 41 degrees MUSE ECG Diagnosis Sinus rhythm with short MS MUSE ECG Diagnosis MUSE ECG Diagnosis MUSE ECG Diagnosis Confirmed by Roscoe Greer ([id number]) on 12/26/2023 3:57:02 PM MUSE ECG 12/26/2023 3:30 AM EDT 12/26/2023 3:57 PM EDT Mariel Sorto MD ECG ORDERABLES Final Result Performing Organization Address City/[facility]/ZIP Co de Phone Number MUSE ECG documented in this encounter Visit Diagnoses Diagnosis Chronic abdominal pain- Primary Abdominal pain, unspecified site documented in this encounter Administered Medications Inactive Administered Medications - up to 3 most recent administrations Medication Order MAR Action Action Date Dose Rate Site dexamethasone (Decadron) injection 10 mg 10 mg, Intravenous, Once, 1 dose, On 12/26/23 at 0825, STAT Given 12/26/2023 8:30 AM EDT 10 mg gi cocktail oral solution 30 mL 30 mL, Oral, Once, 1 dose, On 12/26/23 at 0525, STAT Given 12/26/2023 5:23 AM EDT 30 mL HYDROmorphone (Dilaudid) injection 0.5 mg 0.5 mg, Intravenous, Once, 1 dose, On 12/26/23 at 0525, Routine Given 12/26/2023 5:23 AM EDT 0.5 mg ondansetron (Zofran) 4 MG/2ML injection - Pyxis Override Pull 1 dose, Starting on 12/26/23 at 0355, Until 12/26/23 at 0414 ondansetron (Zofran) injection 4 mg 4 mg, Intravenous, Every 6 hours PRN, Starting on 12/26/23 at 0349, Until 12/26/23 at 0923, Routine, nausea, vomiting Given 12/26/2023 6:42 AM EDT 4 mg Given 12/26/2023 4:14 AM EDT 4 mg oxyCODONE (Roxicodone) immediate release tablet 5 mg 5 mg, Oral, Once, 1 dose, On 12/26/23 at 0640, STAT Given 12/26/2023 6:42 AM EDT 5 mg documented in this encounter Active and Recently Administered Medications Times are shown in EDT. Scheduled Medication Order 12/24/2023 12/25/2023 12/26/2023 dexamethasone (Decadron) injection 10 mg (COMPLETED) 10 mg, Intravenous, Once, 1 dose, On 12/26/23 at 0825, STAT 0830 (Given - Provid er: Fela Rivera RN) gi cocktail oral solution 30 mL (COMPLETED) 30 mL, Oral, Once, 1 dose, On 12/26/23 at 0525, STAT 0523 (Given - Provid er: Jigna Luciano) HYDROmorphone (Dilaudid) injection 0.5 mg (COMPLETED) 0.5 mg, Intravenous, Once, 1 dose, On 12/26/23 at 0525, Routine 0523 (Given - Provid er: Jigna Luciano) oxyCODONE (Roxicodone) immediate release tablet 5 mg (COMPLETED) 5 mg, Oral, Once, 1 dose, On 12/26/23 at 0640, STAT 0642 (Given - Provid er: Jigna Luciano) PRN Medication Order 12/24/2023 12/25/2023 12/26/2023 ondansetron (Zofran) injection 4 mg 4 mg, Intravenous, Every 6 hours PRN, Starting on 12/26/23 at 0349, Until 12/26/23 at 0923, Routine, nausea, vomiting 0414 (Given - Provid er: Jigna Luciano)0642 (Given - Provider: Jigna Luciano - Comment: provider ok'ed to give early) documented in this encounter Additional Health Concerns Assessment Noted Time A fall risk assessment has been complete d for the patient 11/21/2020 2:30 PM EDT A Body Mass Index follow-up plan has been documented for the patient 10/28/2023 1:22 PM EDT documented as of this encounter Care Teams Whale Fisherman Relationship Specialty Start Date End Date Lisa Foote, PIT CRANE OPERATOR [address] [place], [place] [id number] PCP - General 10/23/23 Cally Tilley LPN [employer] [place] [address] TCM Nurse 12/03/23 01/01/24 documented as of this encounter
--- OUTSIDE RECORDS SUMMARY | 2024-02-03 15:08 | XMS_ITS | Encounter Summary ---
Author Organization Healthcare Address [address] [place] [address] Care Team Providers Care Ethologist Name Role Phone Lisa Foote ESTEBAN Primary Care Provider [phone] Cally Tilley LPN Unavailable Unavailable Reason for Visit * Reason Comments Abdominal Pain Encounter Details Date Type Department Care Team ([facility] st Contact Info) Description 12/22/2023 3:25 AM EDT - 12/22/2023 5:05 AM EDT Emergency [facility] Emergency Department [address] [place] [address] Kalpesh Jimenes MD [address] [place] [address] Abdominal pain, generalized (Primary Dx) Discharge Disposition: [...] place to sleep or slept in a longterm (including now)? No 10/27/2023 CAGE ASSESSMENT Answer [...] drink first t caleb in the morning ([employer]) to steady your nerves or to [...] Sign Reading Time Taken Comments Blood Pressure 138/95 12/22/2023 4:54 AM EDT Pulse 94 12/22/2023 4:54 AM EDT Temperature 36.7 ??C (98.1 ??F) 12/22/2023 3:24 AM ED T Respiratory Rate 18 12/22/2023 4:54 AM EDT Oxygen Saturation 96% 12/22/2023 4:54 AM EDT Inhaled Oxygen Concentration - - Weight 94.8 kg (209 lb) 12/22/2023 3:56 AM EDT Height - - Body Mass Index 34.78 12/16/2023 7:44 AM EDT documented in this encounter Functional [...] this encounter Discharge Instructions * Discharge Instructions* Lester Fitzpatrick PA - 12/22/2023 4:52 AM EDT Continue taking home medications as prescribed Keep your appointment with GI as scheduled Discontinue NSAID in ibuprofen use documented in this encounter Medications at Time of Discharge pantoprazole (Protonix) 40 MG EC tablet Take 1 tablet (40 mg) by mouth 1 (one) time each day. Do not crush, chew, or split. acetaminophen (Tylenol) 325 MG tablet Take 2 tablets (650 mg) by mouth every 6 (six) hours if needed for pain. Under [place] law, monthly prescriptions (30 days) can be [...] pain. 30 tablet 4 01/22/20 24 pancrelipase, Jto-Vkxw-Kete, (Creon) [id number] units capsule Take 2 capsules by mouth [...] Miscellaneous Notes * ED Provider Notes - Lester Fitzpatrick PA - 12/22/2023 3:14 AM EDT Images from the original note were not included. - HPI Chief Complaint Patient presents with Abdominal Pain Ms Mcnally is a 38-year-old female who presents to the ED due to abdominal pain. She states that the pain is located in her left side and radiates to her back. Past medical history significant for fibromyalgia, pancreatitis, cannabinoid hyperemesis. She states that she has not used any THC and about a week. She states that she went out for her birthday over the weekend and drank which made her painsignificantly worse. Started having issues with nausea vomiting and pain yesterday. Denies cough shortness of breath or fevers. Decided to come to ED for evaluation. States she was also having diarrhea. Patient has had multiple ED visits over the past month for the same reason. CT scan 6 days ago was without acute findings. Denies any burning with urination. Past surgical history significant for cholecystectomy Patient History Past Medical History: Diagnosis Date Anxiety Arthritis Depression Fibromyalgia Gastric erosions 04/19/2021 GERD (gastroesophageal reflux disease) Hypertension Intentional overdose ([facility]) 12/20/2021 Nicotine dependence Obesity Pancreatitis [...] attacks too. Physical Exam ED Triage Vitals [12/22/23 0324] Temp Heart Rate Resp BP 36.7 ??C (98.1 ??F) 104 20 (!) 160/100 SpO2 Temp Source Heart Rate Source Patient Position 99 % Oral -- Sitting BP Location FiO2 (%) Right arm -- Physical Exam Vitals and nursing note reviewed. Constitutional: General: She is not in acute distress. Appearance: She is well-developed. She is not ill-appearing. HENT: Head: Normocephalic and atraumatic. Cardiovascular: Heart sounds: Normal heart sounds. No murmur heard. Pulmonary: Effort: Pulmonary effort is normal. No respiratory distress. Breath sounds: Normal breath sounds. No wheezing. Abdominal: Palpations: Abdomen is soft. Tenderness: There is generalized abdominal tenderness. There is no guarding. Skin: General: Skin is warm and dry. Neurological: Mental Status: She is alert and oriented to person, place, and time. Motor: No weakness. Psychiatric: Mood and Affect: Mood normal. Behavior: Behavior normal. Jo Coma Scale Score: 15 ED Course & MDM - Assessment: 38 y.o. female presents to ED with complaint of abdominal pain. It should be noted that the chronicconditions includes abdominal pain, which currently is not at goal therapy. This complicates the clinical picture because it Comorbidities: may be exacerbating symptoms Differential Diagnosis: Gastroenteritis, pancreatitis, chronic abdominal pain, malingering Labwork obtained as below. Labwork was found to be grossly normal. Consider CT imaging of abdomen and pelvis however not change our current management. Patient was given IV Zofran as well as a GI cocktail. Patient requested pain medication, was given 0.5 mg Dilaudid IV once for pain. Requested something to help her sleep once she was discharged, was given 5 mg oxycodone oral for pain. No acute findings were found on exam. CT scan was obtained a few days ago and was without acute findings. Has had multiple ER visits for the same issue. Has a appointment pending with GI, already taking Carafateand Protonix for abdominal pain. Encouraged to discontinue alcohol use as well as ibuprofen. Discharged home In order to fully explore the differential diagnosis the following treatments and tests were ordered: ED Medication Administration from 12/22/2023 0314 to 12/22/2023 0457 Date/Time Order Dose Route Action 12/22/2023351 EDT gi cocktail oral solution 30 mL 30 mL Oral Given 12/22/2023 035 EDT ondansetron (Zofran) injection 4 mg 4 mg Intravenous Given 12/22/2023 0433 EDT HYDROmorphone (Dilaudid) injection 0.5 mg 0.5 mg Intravenous Given All Other Orders Ordered Status Ordering Provider 12/22/23400 Extra Tubes Once In process LESTER FITZPATRICK 12/22/23400 Gold Top PROCEDURE ONCE In process LESTER FITZPATRICK 12/22/23331 CBC STAT Final result LESTER FITZPATRICK 12/22/23331 CMP STAT Final result LESTER FITZPTARICK 12/22/23331 Magnesium STAT Final result LESTER FITZPATRICK 12/22/23331 Lipase STAT Final result LESTER FITZPATRICK 12/22/23331 Lactic acid, venous STAT Final result LESTER FITZPATRICK 12/22/23331 hCG qualitative STAT Final result LESTER FITZPATRICK Clinical Impressions as of 12/22/23456 Abdominal pain, generalized Social Determinates of Health Risks (including Economic Stability, Education and level of understanding, Healthcare access and quality and concerning social factors): Poor health literacy Ultimately, this patient was Was discharged Home (Discharge) The encounter diagnosis was Abdominal pain, generalized. . Patient was counseled on thediagnoses. Discharge medications if any are listed below. Listed medications are thought be either curative for listed diagnoses or will help control ongoing symptoms. Patient is requested to follow up with GI in order to obtain specialty care. Instructions on follow up as well as precautions to return to the ER provided verbally by the EM provider, as well as written in patients discharge education packet. ED Prescriptions None Discharge Instructions Continue taking home medications as prescribed Keep your appointment with GI as scheduled Discontinue NSAID in ibuprofen use Disposition Discharge AVS (Printed 12/22/2023) - Lester Fitzpatrick PA 12/22/23 045 Cosigned by Kalpesh Jimenes MD at 12/25/2023 11:51 PM EDT Associated attestation - Kalpesh Jimenes MD - 12/25/2023 11:51 PM EDT The patient was seen only by Advanced Practice Provider (AJAY), and care was reviewed with me. * ED Triage Notes - Anabel Gamez, RN - 12/22/2023 3:14 AM EDT Pt presents for L sided abdominal pain. Pt states, I have been told I have pancreatitis in the past. I was here last Thursday and they said I could have a ulcer or the pain is from me using marijuana. Pt endorses drinking Thursday and Thursday but denies any marijuana use. Pt reports N/V/D. documented in this encounter Plan of Treatment Not on file documented as of this encounter Procedures Procedure Name Priority Date/Time Associated Diagnosis Comments EXTRA TUBE GOLD TOP Routine 12/22/2023 3 :51 AM EDT LACTATE, VENOUS STAT 12/22/2023 3:51 AM EDT EXTRA TUBES Routine 12/22/2023 3:51 AM EDT CBC W/O DIFFERENTIAL STAT 12/22/2023 3:51 AM EDT TEST QUALITATIVE PLASMA STAT 12/22/2023 3:51 AM EDT MAGNESIUM, PLASMA STAT 12/22/2023 3:5 1 AM EDT LIPASE, PLASMA STAT 12/22/2023 3:51 AM EDT COMPREHENSIVE METABOLIC PANEL, PLASMA STAT 12/22/2023 3:51 AM EDT documented in this encounter Results * Gold Top (12/22/2023 3:51 AM EDT) Extra Hold for add-ons 12/22/2023 6:01 AM EDT [facility] Comment:Auto resulted. Blood Venous blood specimen / Unknown 12/22/2023 3:51 AM EDT 12/22/2023 4:01 AM EDT Lester NAJERA LAB BLOOD ORDERABLES Fi nal Result Performing Organization Address City/[facility] Co de Phone Number [facility] [address] [place] [address] * hCG qualitative (12/22/2023 3:51 AM EDT) Test Negative Negative 12/22/2023 4:42 AM EDT [facility] Blood Venous blood specimen / Unknown Venipuncture / Unknown 12/22/2023 3:51 AM EDT 12/22/2023 4:14 AM EDT Narrative [facility] - 12/22/2023 4:42 AM EDT Reference Range: Males and non- females: Negative. Lester NAJERA LAB BLOOD ORDERABLES Fi nal Result Performing Organization Address [facility] Co de Phone Number [facility] [address] [place] [address] * Lactic acid, venous (12/22/2023 3:51 AM EDT) Lactate, Venous, Whole Blood 1.6 0.5 - 2.2 mmol/L LAB HEMATOLOGY METHOD 12/22/2023 4:00 AM EDT [facility] Blood Venous blood specimen / Unknown Venipuncture / Unknown 12/22/2023 3:51 AM EDT 12/22/2023 3:58 AM EDT Lester NAJERA LAB BLOOD ORDERABLES Fi nal Result [facility] [address] [place] [address] * Lipase (12/22/2023 3:51 AM EDT) Lipase, Plasma 37 19 - 63 U/L 12/22/2023 4:42 AM EDT [facility] Blood Venous blood specimen / Unknown Venipuncture / Unknown 12/22/2023 3:51 AM EDT 12/22/2023 4:14 AM EDT us Lester NAJERA LAB BLOOD ORDERABLES Fi nal Result [facility] [address] [place] [address] * Magnesium (12/22/2023 3:51 AM EDT) Magnesium, Plasma 1.9 1.9 - 2.4 mg/dL 12/22/2023 4:42 AM EDT [facility] Blood Venous blood specimen / Unknown Venipuncture / Unknown 12/22/2023 3:51 AM EDT 12/22/2023 4:14 AM EDT us Lester NAJERA LAB BLOOD ORDERABLES Fi nal Result Performing Organization Address [facility] Co de Phone Number [facility] [address] [place] [address] * (ABNORMAL) CMP (12/22/2023 3:51 AM EDT) Glucose, Plasma 116(H) 74 - 99 mg/dL 12/22/2023 4:42 AM EDT [facility] BUN, Plasma 11 7 - 21 mg/dL 12/22/2023 4:42 AM EDT [facility] Creatinine, Plasma 0.54(L) 0.60 - 1.10 mg/dL 12/22/2023 4:42 AM EDT [facility] BUN/Creatinine Ratio 20 12/22/2023 4:42 AM EDT [facility] Sodium, Plasma 146(H) 136 - 145 mmol/L 12/22/2023 4:42 AM EDT [facility] Potassium, Plasma 3.6 3.6 - 4.9 mmol/L 12/22/2023 4:42 AM EDT [facility] Chloride, Plasma 109(H) 97 - 107 mmol/L 12/22/2023 4:42 AM EDT [facility] CO2, Plasma 24 22 - 29 mmol/L 12/22/2023 4:42 AM EDT [facility] Anion Gap 13 6 - 16 mmol/L 12/22/2023 4:42 AM EDT [facility] Total Calcium, Plasma 8.9 8.9 - 10.2 mg/dL 12/22/2023 4:42 AM EDT [facility] Total Protein 6.4 6.3 - 7.9 g/dL 12/22/2023 4:42 AM EDT [facility] Albumin, Plasma 4.0 3.5 - 5.2 g/dL 12/22/2023 4:42 AM EDT [facility] AST, Plasma 20 10 - 35 U/L 12/22/2023 4:42 AM EDT [facility] Comment:Hemolyzed, result ma y be falsely increased. ALT, Plasma 18 10 - 35 U/L 12/22/2023 4:42 AM EDT [facility] Alkaline Phosphatase, Plasma 90 35 - 104 U/L 12/22/2023 4:42 AM EDT [facility] Total Bilirubin, Plasma <0.2(L) 0.2 - 1.1 mg/dL 12/22/2023 4:42 AM EDT [facility] eGFRcr 121.8 mL/min/1.7 3m*2 12/22/2023 4:42 AM EDT [facility] Comment:Reported eGFRcr in m L/min/1.73m2 is based the CKD-EPI 2020 equation that does not use a race coefficient. Blood Venous blood specimen / Unknown Venipuncture / Unknown 12/22/2023 3:51 AM EDT 12/22/2023 4:14 AM EDT us Lester NAJERA LAB BLOOD ORDERABLES Fi nal Result [facility] [address] [place] [address] * (ABNORMAL) CBC (12/22/2023 3:51 AM EDT) WBC Count 5.24 3.70 - 10.30 10*3/uL LAB HEMATOLOGY METHOD 12/22/2023 4:10 AM EDT [facility] RBC Count 4.20 3.90 - 5.20 10*6/uL LAB HEMATOLOGY METHOD 12/22/2023 4:10 AM EDT [facility] HGB 10.9(L) 11.2 - 15.7 g/dL LAB HEMATOLOGY METHOD 12/22/2023 4:10 AM EDT [facility] HCT 34.7 34.0 - 45.0 % LAB HEMATOLOGY METHOD 12/22/2023 4:10 AM EDT [facility] Platelet Count 230 155 - 369 10*3/uL LAB HEMATOLOGY METHOD 12/22/2023 4:10 AM EDT [facility] MCV 83 79 - 98 fL LAB HEMATOLOGY METHOD 12/22/2023 4:10 AM EDT [facility] MCH 26.0 26.0 - 32.0 pg LAB HEMATOLOGY METHOD 12/22/2023 4:10 AM EDT [facility] MCHC 31.4 30.7 - 35.5 g/dL LAB HEMATOLOGY METHOD 12/22/2023 4:10 AM EDT [facility] RDW 17.0(H) 11.5 - 14.5 % LAB HEMATOLOGY METHOD 12/22/2023 4:10 AM EDT [facility] MPV 9.9 8.8 - 12.5 fL LAB HEMATOLOGY METHOD 12/22/2023 4:10 AM EDT [facility] nRBC 0.0 <=0.0 per 100 WBCs LAB HEMATOLOGY METHOD 12/22/2023 4:10 AM EDT [facility] Blood Venous blood specimen / Unknown Venipuncture / Unknown 12/22/2023 3:51 AM EDT 12/22/2023 4:07 AM EDT us Lester NAJERA LAB BLOOD ORDERABLES Fi nal Result [facility] [address] [place] [address] documented in this encounter Visit Diagnoses Diagnosis Abdominal pain, generalized- Primary documented in this encounter Administered Medications Inactive Administered Medications - up to 3 most recent administrations Medication Order MAR Action Action Date Dose Rate Site gi cocktail oral solution 30 mL 30 mL, Oral, Once, 1 dose, On Tu12/22/23 at 0335, STAT Given 12/22/2023 3:52 AM EDT 30 mL HYDROmorphone (Dilaudid) injection 0.5 mg 0.5 mg, Intravenous, Once, 1 dose, On 12/22/23 at 0435, Routine Given 12/22/2023 4:33 AM EDT 0.5 mg ondansetron (Zofran) injection 4 mg 4 mg, Intravenous, Once, 1 dose, On 12/22/23 at 0335, STAT Given 12/22/2023 3:52 AM EDT 4 mg oxyCODONE (Roxicodone) immediate release tablet 5 mg 5 mg, Oral, Once, 1 dose, On 12/22/23 at 0455, STAT Given 12/22/2023 5:01 AM EDT 5 mg documented in this encounter Active and Recently Administered Medications Times are shown in EDT. Scheduled Medication Order 12/20/2023 12/21/2023 12/22/2023 gi cocktail oral solution 30 mL (COMPLETED) 30 mL, Oral, Once, 1 dose, On Thu12/22/23 at 0335, STAT 0352 (Given - Provid er: Tri Landeros) HYDROmorphone (Dilaudid) injection 0.5 mg (COMPLETED) 0.5 mg, Intravenous, Once, 1 dose, On 12/22/23 at 0435, Routine 0433 (Given - Provid er: Tri Landeros) ondansetron (Zofran) injection 4 mg (COMPLETED) 4 mg, Intravenous, Once, 1 dose, On 12/22/23 at 0335, STAT 0352 (Given - Provid er: Tri Landeros) oxyCODONE (Roxicodone) immediate release tablet 5 mg (COMPLETED) 5 mg, Oral, Once, 1 dose, On e 12/22/23 at 0455, STAT 0501 (Given - Provid er: Tri Landeros) documented in this encounter Additional Health Concerns Assessment Noted Time A fall risk assessment has been complete d for the patient 11/21/2020 2:30 PM EDT A Body Mass Index follow-up plan has been documented for the patient 10/28/2023 1:22 PM EDT documented as of this encounter Care Teams Ethologist Relationship Specialty Start Date End Date Lisa Foote APRN [address] [place] [address] PCP - General 10/23/23 Cally Tilley LPN [employer] [place] [place] [address] TCM Nurse 12/03/23 01/01/24 documented as of this encounter
--- OUTSIDE RECORDS SUMMARY | 2024-02-03 15:08 | XMS_ITS | Encounter Summary ---
Author Organization Healthcare Address [facility] [place] [address] Care Team Providers Care Hot Knife Foxing Cutter Name Role Phone Lisa Foote ESTEBAN Primary Care Provider Amira Solis WIRE BRUSH MAKER Unavailable Unavailable Cally Tilley WIRE BRUSH MAKER Unavailable Unavailable Reason for Visit * Reason Comments Abdominal Pain * Auth/Cert (Routine) Specialty Diagnoses / Procedures Referred By Contac t Referred To Contact Diagnoses Acute on chronic pancreatitis (CMS/HCC) Sharron Clark MD [address] [place] [address] Phone: tel: fax: [facility] Inpatient [address] [place] [address] Phone: tel: Referral ID Status Reason Start Date Expiration Date Visits Re quested Visits Authorized [id number] 1 1 Encounter Details Date Type Department Care Team (Late st Contact Info) Description 12/02/2023 3:37 AM EDT - 12/03/2023 2:22 AM EDT Emergency [facility] [address] [place] [address] Robby Momin MD [address] [place] [address] Mierya Lindsay MD [address] [place] [address] Sharron Clark MD [address] [place] [id number] Acute on chronic pancreatitis (CMS/HCC) (Primary Dx) [...] place to sleep or slept in a nursing home (including now)? No 10/27/2023 CAGE ASSESSMENT [...] drink first t caleb in the morning (EYE-STRING STUDIES DIRECTOR) to steady your nerves or to get rid of a hangover? 0 10/24/2023 CAGE Questionnaire Score 0 024 Utilities Answer Date Recorded In the past 12 months has th e [employer], gas, oil, or water [employer] threatened to shut off services in your [...] Sign Reading Time Taken Comments Blood Pressure 137/93 12/03/2023 12:03 AM EDT Pulse 86 12/03/2023 12:03 AM EDT Temperature 36.9 ??C (98.4 ??F) 12/03/2023 12:03 AM E DT Respiratory Rate 20 12/03/2023 12:03 AM EDT Oxygen Saturation 96% 12/03/2023 12:03 AM EDT Inhaled Oxygen Concentration - - Weight 71.2 kg (157 lb) 12/02/2023 6:42 PM EDT Height 165.1 cm (5' 5 ) 12/02/2023 6:42 PM EDT Body Mass Index 26.13 12/02/2023 6:42 PM [...] (six) hours if needed for pain. Under [place] law, monthly prescriptions (30 days) can be [...] pain. 30 tablet 4 01/22/20 24 pancrelipase, Ebn-Xmgd-Pwnv, (Creon) [id number] units capsule Take 2 capsules by mouth [...] as of this encounter Miscellaneous Notes * Discharge Summary - Sharron Clark MD - 12/03/2023 2:22 AM EDT Images from the original note were not included. Hospitalization Admit Date/Time: 12/02/2023 3:37 AM Admitting Attending: Sharron Clark Discharge Date: 12/03/2023 Discharge Attending Physician: Sharron Clark MD PCP name and Address: Lisa Foote, FUNCTIONAL ARCHITECT [address] [address] Referring provider name and address: No referring provider defined for this encounter. Chief Concern, Brief History of Present Illness, and Hospital Course Presented to ED with acute on chronic abdominal pain. See H&P same date for details. A few hours after admission, Ms. Mcnally left due to not receiving her desired medication combinations. In my conversation with her, we discussed that IV opioids were not the evidence based treatment forher condition. Surgeries and Procedures Medication List . acetaminophen 325 MG tablet Commonly known as: Tylenol Take 2 tablets (650 mg) by mouth every 6 (six) hours if needed for pain. Under [place] law, monthly prescriptions (30 days) can be refilled at 25 days and three-month prescriptions (90 days) at 80 days. Please contact the insurance company with questions if refills are denied. DULoxetine [address] capsule Commonly known as: Cymbalta Take 1 capsule (60 mg) by mouth 1 (one) time each day. Do not crush or chew. ketorolac 10 MG tablet Commonly known as: Toradol Take 1 tablet (10 mg) by mouth every 6 (six) hours if needed for moderate pain. lidocaine 5 % patch Commonly known as: Lidoderm Apply 2 patches topically 1 (one) time each day at the same time over 12 hours. Remove & discard patch within 12 hours or as directed by MD. naloxone 4 mg/0.1 mL nasal spray Commonly known as: Narcan 1. Give 1 spray in nostril for no/slow breathing or cannot wake after opioid use 2. Call 911 3. Repeat in other nostril if symptoms continue ondansetron 4 MG tablet Commonly known as: Zofran Take 1 tablet (4 mg) by mouth every 6 (six) hours if needed for nausea or vomiting. ondansetron ODT 4 MG disintegrating tablet Commonly known as: Zofran-ODT Take 1 tablet (4 mg) by mouth every 6 (six) hours if needed for nausea. * oxyCODONE 10 MG immediate release tablet Commonly known as: Roxicodone Take 1 tablet (10 mg) by mouth every 4 (four) hours if needed for severe pain. * oxyCODONE 5 MG immediate release tablet Commonly known as: Roxicodone Take 1 tablet (5 mg) by mouth every 6 (six) hours if needed (pain) for up to 2 days. Ask about: Should I take this medication? pancrelipase (Dmb-Ujck-Owvf) [id number] units capsule Commonly known as: Creon Take 2 capsules by mouth 3 (three) times a day with meals. pantoprazole 40 MG EC tablet Commonly known as: Protonix Take 1 tablet (40 mg) by mouth 1 (one) time each day. Do not crush, chew, or split. polyethylene glycol 17 g packet Commonly known as: Miralax Take 17 g by mouth 1 (one) time each day. pregabalin 200 MG capsule Commonly known as: Lyrica Take 1 capsule (200 mg) by mouth 2 (two) times a day. promethazine 25 MG tablet Commonly known as: Phenergan Take 1 tablet (25 mg) by mouth every 8 (eight) hours if needed for nausea or vomiting. senna 8.6 MG tablet Commonly known as: Senokot Take 1 tablet (8.6 mg) by mouth every night. * This list has 2 medication(s) that are the same as other medications prescribed for you. Read thedirections carefully, and ask your doctor or other care provider to review them with you. Discharge Diagnosis Medical Problems Active and Resolved Hospital Problems Hospital * (Principal) Acute on chronic pancreatitis (CMS/HCC) Post Discharge Instructions None. F/up PCP Outpatient Follow-Up No future appointments. Test Results Pending At Discharge Pertinent Physical Exam At Time of Discharge Physical Exam Discharge Disposition/Condition Disposition: Home Condition: Stable (s/sx potential problems absent or manageable) I spent < 30 minutes of patient care and instruction time in preparation for this discharge. * Significant Event - Mireya Almonte MD - 12/03/2023 2:10 AM EDT Nurse messaged me 12/03/23 01:54 stating patient would like to leave AMA. I went to bedside to talkto patient. During our discussion patient states that she came in due to abdominal pain and wantingbetter pain control. She states she has previous history of pancreatitis but reports imaging does not show chronic pancreatitis. She states she is upset and would like to go home as everything she is getting for pain at the hospital is what she takes at home. She is upset because they took off my oxy 5. Patient was offered GI cocktail but states she has tried that before and this pain is different. I educated patient that the day team is still conducting workup for the etiology of her pain and leaving would be against medical advise as investigation is still ongoing. She expresses understandingof this and is aware of the risks. Patient was discharged AMA. * H&P - Edilson Sorenson MD - 12/02/2023 3:49 PM EDTAssociated Order(s): Consult to Hospital Medicine Images from the original note were not included. Hospital Medicine History & Physical Consult to Hospital Medicine Consult performed by: Edilson Sorenson MD Consult ordered by: Mireya Lindsay MD Reason for consult: Chronic Pancreatitis Subjective 12/02/2023 Chief Complaint: Chief Complaint Patient presents with Abdominal Pain History Of Present Illness Lila Mcnally is a 37 y.o. female with a PMH of Chronic pancreatitis, Gerd, HTN, depression, fibromyalgia and Anxiety who presents with worsening abdomina pain. The patient said that her abdominalpain started on night, she said she had a couple of alcohol drinks that night. Since , the pain has been increasing. Her pain is epigastric and radiates to her back. She describes the pain and constant and pulsitile. She said she also has interment stabbing pain. The patients nausea began on Thursday. The patient said that since then, anytime she eats or drinks, it feels like she has razor blades in her stomach. She has thrown up 5 times since Thursday. The patient denied burning pain, but said if she lays flat on her back, she has epigastric burning. She has been taking about 6 tylenol and IBU since last with little help in her pain. Patient says she has been taking creon regularly. Patient is seen by PCP and was scheduled to have an EGD this year. Smoking Hx: 2 - PPD Drinking Hx: rarely, special occasions Recreational drug use: marijuana Past Medical History Past Medical History: Diagnosis Date Anxiety Arthritis Depression Fibromyalgia Gastric erosions 04/19/2021 GERD (gastroesophageal reflux disease) Hypertension Intentional overdose ([facility]) 12/20/2021 Nicotine dependence Obesity Pancreatitis Surgical History Past Surgical History: Procedure Laterality Date CHOLECYSTECTOMY DILATION AND CURETTAGE OF UTERUS ERCP ESOPHAGOGASTRODUODENOSCOPY HAND SURGERY Right ORAL SURGERY Family History Family History Problem Relation Name Age of Onset Hypertension Mother Coronary artery disease Father Lung cancer Maternal Grandmother Coronary artery disease Maternal Grandfather Coronary artery disease Paternal Grandfather Colon cancer Other Social History Social History Tobacco Use Smoking status: Every Day Current [...] Marijuana Comment: a few times a month Home Medications Current Outpatient Medications Medication Instructions acetaminophen (TYLENOL) 650 mg, Oral, Every 6 hours PRN, Under [place] law, monthly prescriptions (30 days) can be refilled at 25 days and three-month prescriptions (90 days) at 80 days. Please contact the insurance company with questions if refills are denied. DULoxetine (CYMBALTA) 60 mg, Oral, Daily, Do not crush or chew. ketorolac (TORADOL) 10 mg, Oral, Every 6 hours PRN lidocaine (Lidoderm) 5 % patch 2 patches, Apply externally, Every 24 hours, Remove & discard patch within 12 hours or as directed by MD. naloxone (NARCAN) 4 mg, Nasal, As needed ondansetron (ZOFRAN) 4 mg, Oral, Every 6 hours PRN ondansetron ODT (ZOFRAN-ODT) 4 mg, Oral, Every 6 hours PRN oxyCODONE (ROXICODONE) 10 mg, Oral, Every 4 hours PRN pancrelipase, Ebn-Luvc-Tjkg, (Creon) [id number] units capsule 2 capsules, Oral, 3 times daily withmeals pantoprazole (PROTONIX) 40 mg, Oral, Daily, Do not crush, chew, or split. polyethylene glycol (MIRALAX) 17 g, Oral, Daily pregabalin (LYRICA) 200 mg, Oral, 2 times daily promethazine (PHENERGAN) 25 mg, Oral, Every 8 hours PRN senna (SENOKOT) 8.6 mg, Oral, Nightly Objective Blood pressure (!) 149/94, pulse 69, temperature 36.6 ??C (97.9 ??F), resp. rate 19, weight 71.2 kg(157 lb), SpO2 99%, not currently . Physical Exam Constitutional: Appearance: She is obese. Cardiovascular: Rate and Rhythm: Normal rate. Heart sounds: No murmur heard. Pulmonary: Effort: Pulmonary effort is normal. No respiratory distress. Breath sounds: Normal breath sounds. Abdominal: General: There is no distension. Palpations: There is no mass. Tenderness: There is abdominal tenderness. There is no guarding. Comments: Negative Carnett sign Musculoskeletal: Right lower leg: No edema. Left lower leg: No edema. Skin: Coloration: Skin is not jaundiced. Findings: No bruising or lesion. Neurological: General: No focal deficit present. Mental Status: She is alert and oriented to person, place, and time. Psychiatric: Mood and Affect: Mood normal. Data Labs personally reviewed CBC WBC 7.10 Hb 10.5 (L) Plt 238 Hct 33.3 (L) ANC 4.47 INR ??, PTT ??, Anti-Xa ?? BMP Na 138 Cl 106 BUN 13 Glu 120 (H) K 4.3 Co2 21 (L) Cr 0.53 (L) Ca 8.5 (L) iCa ?? Mg ??, Phos ?? Lactate ?? LFT AST 24 AlkPhos 96 T Prot 6.0 (L) ALK 13 Bili <0.2 (L) Alb ?? D.Bili ?? Imaging CT personally reviewed, showing No acute findings within the abdomen or pelvis Assessment/Plan Assessment/ Plan Principal Problem: Acute on chronic pancreatitis (CMS/HCC) Lila Mcnally is a 37 y.o. female with a PMH of Gerd, HTN, depression, fibromyalgia and Anxiety who presents with worsening abdomina pain. #Functional Abdominal Pain -1 week of worsening epigastric pain, Nausea and epigastric pain after eating or drinking -Hx of gallstone pancreatitis in 2018 -CT AP: no acute abdominal pathology seen -all prior CT scans are normal -MRCP on 10/27/23: normal pancreas without acute or chronic inflammation -not relieved with BMs -previous Dx of chronic pancreatitis does not fit the picture do to CT and MRCPs -believe this fits the picture of functional abdominal pain PLAN: -reglan prn for nausea -PO Zofran prn for nausea -PO pain medicine (tylenol + IBU) -PO PPI + famotidine Chronic Medical Conditions: #Mood disorder: continue duloxetine + lyrica Electronically Signed by: Edilson Sorenson MD - 12/02/2023 - 3:49 PM Edilson Sorenson MD Internal Medicine, PGY-1 Cosigned by Sharron Clark MD at 12/02/2023 10:51 PM EDT Associated attestation - Sharron Clark MD - 12/02/2023 10:51 PM EDT I saw and evaluated the patient. I discussed the case with the resident/fellow and agree with the findings and plan as documented. I reviewed extensive old records of prior testing and notes. Given the refractory nature of her symptoms, it seems prudent to confirm the underlying diagnosis. Lila has had ~30 CT abdomens since 2020 that do not show changes consistent with acute or chronic pancreatitis. She has had mild Lipase elevations on a few occasions. She does not have clinical evidence of exocrine insufficiency and has a normal MRCP and an EUS that was also deemed to be not consistent with chronic pancreatitis. There is a fecal elastase in 2021 that was <10--very low--which w naldo repeating. She does not have prominent diarrhea or constipation or association with bowel habits which lowers the probabililty of IBS. No risk factors of gastroparesis and the nature of her symptoms--mostly pain, not much n/v except last few days--seems to not fit. She has a high symptom burden and considerable emotional distress from this. Given her attacks include both abd pain and worsening neuropsych symptoms, ruling out acute intermittent porphyria seems prudent as this does not appear to have been ever checked. Ultimately, we may approach this as a functional dyspepsia--epigastric pain type. * ED Provider Notes - Reese Petersen DO - 12/02/2023 3:33 AM EDT - HPI Chief Complaint Patient presents with Abdominal Pain HPI Patient is a 37-year-old female with a past medical history of chronic pancreatitis, GERD, hypertension, depression, fibromyalgia, anxiety who presents with up to for quadrant abdominal pain. Patientstates she was here on 11/27 with similar symptoms of left upper quadrant and epigastric abdominal pain. She states that she has continued to have nausea and vomiting and inability to tolerate by mouth. She states that she ran out of the pain medications that she was discharged with and was unable to get in with her primary care provider. She states that she called her primary care provider and her primary care provider told her that she was unable to provide her with any more pain medication and that if she had worsening symptoms she should present to the emergency department. Patient describes her abdominal pain is left upper quadrant that radiates posteriorly to her left flank. Patient states that she has been unable to tolerate by mouth intake since Thursday. She has had 5 episodes of vomiting since Thursday. She denies any fever, diarrhea, chest pain, shortness of breath, hematemesis, hemoptysis. Patient History Past Medical History: Diagnosis Date Anxiety Arthritis Depression Fibromyalgia Gastric erosions 04/19/2021 GERD (gastroesophageal reflux disease) Hypertension Intentional overdose ([facility]) 12/20/2021 Nicotine dependence Obesity Pancreatitis [...] attacks too. Physical Exam ED Triage Vitals [12/02/23 0336] Temp Heart Rate Resp BP 36.6 ??C (97.9 ??F) 104 20 (!) 159/98 SpO2 Temp Source Heart Rate Source Patient Position 100 % Oral -- Sitting BP Location FiO2 (%) Right arm -- Physical Exam Constitutional: General: She is not in acute distress. HENT: Head: Normocephalic and atraumatic. Comments: No facial swelling Mouth/Throat: Mouth: Mucous membranes are moist. Pharynx: Oropharynx is clear. Cardiovascular: Rate and Rhythm: Regular rhythm. Tachycardia present. Pulmonary: Effort: Pulmonary effort is normal. No respiratory distress. Breath sounds: Normal air entry. Comments: Speaking full sentences. Symmetric chest rise Abdominal: General: Abdomen is flat. There is no distension. Palpations: Abdomen is soft. Tenderness: There is abdominal tenderness in the epigastric area and left upper quadrant. There is left CVA tenderness. There is no right CVA tenderness, guarding or rebound. Negative signs include Carlson's sign, Rovsing's sign and McBurney's sign. Musculoskeletal: General: No deformity. Normal range of motion. Cervical back: Normal range of motion. Comments: Atraumatic, moves all extremities spontaneously Neurological: Mental Status: She is alert. Mental status is at baseline. Comments: Awake Psychiatric: Behavior: Behavior normal. No data recorded ED Course & MDM - Assessment: 37 y.o. female presents to ED with complaint of possible quadrant abdominal pain in epigastric pain. It should be noted that the chronic conditions includes as stated above, which currently is not atgoal therapy. This complicates the clinical picture because it Comorbidities: may be exacerbating symptoms, increases the amount and complexity of data to be reviewed, and complicates the clinical workup Differential Diagnosis: Differential diagnosis includes but isn't limited to GERD, gastritis, pancreatitis, gastroenteritis, pyelonephritis, UTI, among others. In order to fully explore the differential diagnosis the following treatments and tests were ordered: ED Medication Administration from 12/02/2023 0333 to 12/02/2023 0638 Date/Time Order Dose Route Action 12/02/2023522 EDT lactated Ringer's infusion 500 mL 500 mL Intravenous New Bag 12/02/2023 05 EDT morphine PF 4 mg 4 mg Intravenous Given 12/02/2023522 EDT ondansetron (Zofran) injection 4 mg 4 mg Intravenous Given All Other Orders Ordered Status Ordering Provider 12/02/23 0444 Extra Tubes Once In process ROBBY MOMIN 12/02/23 0444 Gold Top PROCEDURE ONCE In process ROBBY MOMIN 12/02/23 0354 Urinalysis with reflex microscopic AND reflex culture (IF UTI SUSPECTED) STAT Acknowledged SCOCCA, REESE L 12/02/23 0354 Urinalysis with reflex microscopic (Culture NOT Included) PROCEDURE ONCE Ordered SCOCCA, REESE L 12/02/23 0354 Urine Gunter Panel PROCEDURE ONCE Ordered SCOCCA, REESE L 12/02/23 0344 CBC w/diff STAT Final result SCOCCA, REESE L 12/02/23 0344 CMP STAT Final result SCOCCA, REESE L 12/02/23 0344 Lipase STAT Final result SCOCCA, REESE L ED Course as of 12/02/23 0638 ThuDec 02, 2023 0525 Lipase is within normal limits, although may not be elevated and chronic pancreatitis. CBC is nonactionable, CMP is nonactionable. UA is pending at time of handoff to incoming resident at shift change. [CS] 0637 On reassessment, patient was resting comfortably, in no acute distress. Dispo is pending UA and reassessment, by mouth challenged at time of handoff to incoming resident at shift change. [CS] ED Course User Index [CS] Reese Petersen DO Social Determinates of Health Risks (including Economic Stability, Education and level of understanding, Healthcare access and quality and concerning social factors): None identified on this visit Ultimately, this patient was was signed out to the oncoming provider (Signed Out) Patient care assumed by oncoming provider, Dr. Cordova, at shift change, tentative plan at the time of sign-out was 6:30am. ED Prescriptions None - Reese Petersen DO Resident 12/02/23 0638 Cosigned by Robby Momin MD at 12/05/2023 11:23 AM EDT Associated attestation - Robby Momin MD - 12/05/2023 11:23 AM EDT I saw and evaluated the patient with the resident/fellow. I discussed the case with the resident/fellow and agree with the findings and plan as documented. * ED Triage Notes - Flo Morales RN - 12/02/2023 3:33 AM EDT Pt endorses abdominal pain x1 week that radiates to her back. Pt states she has been vomiting everytime she eats, hx pancreatitis. Was here on Thursday and discharged for same symptoms. * Progress Notes - Walt Cordova DO - 12/02/2023 3:33 AM EDT I received sign-out and accepted care of this patient from the departing Drs: resident Dr. Petersen and attending at 6:30 a.m.. Please see the primary providers??? note for complete elements of the history, physical exam, and ED course. Illness Severity: Stable Patient Summary: Lila Mcnally is a 37 y.o. female with a PMHx of Past Medical History: Diagnosis Date Anxiety Arthritis Depression Fibromyalgia Gastric erosions 04/19/2021 GERD (gastroesophageal reflux disease) Hypertension Intentional overdose ([facility]) 12/20/2021 Nicotine dependence Obesity Pancreatitis presented to the ED for evaluation of abdominal pain. Please see primary note for further HPI details. Most recent vital signs: Visit Vitals BP (!) 149/94 Pulse 69 Temp 36.6 ??C (97.9 ??F) Resp 19 Wt 71.2 kg (157 lb) SpO2 99% BMI 26.13 kg/m?? OB Status Having periods Smoking Status Every Day BSA 1.81 m?? Lab and imaging results: Please see primary note Action plan (To Do): Obtain urine and by mouth challenge Disposition: Pending re-evaluation I gave patient oxycodone and Dilaudid as well as another round of Zofran. Patient is still complaining of severe abdominal pain and is not tolerating by mouth intake. At this point, I believe patientwarrants admission for acute on chronic pancreatitis. I consulted Hospital Medicine and had an interactive discussion with them regarding the patient's care. They agreed to evaluate the patient for admission. ED Course as of 12/02/231656Dec 02, 2023 0525 Lipase is within normal limits, although may not be elevated and chronic pancreatitis. CBC is nonactionable, CMP is nonactionable. UA is pending at time of handoff to incoming resident at shift change. [CS] 0637 On reassessment, patient was resting comfortably, in no acute distress. Dispo is pending UA and reassessment, by mouth challenged at time of handoff to incoming resident at shift change. [CS] 0928 Calcium(!): 8.5 Will replete [WB] 1045 IMPRESSION: No acute findings within the abdomen or pelvis. Morphologically unremarkable pancreas. 18 mm soft tissue nodule in the medial inferior right breast is again partially visualized. [WB] ED Course User Index [CS] Reese Petersen, DO [WB] Walt Cordova, DO Clinical Impressions as of 10/09/24 1657 Acute on chronic pancreatitis (CMS/HCC) -dictation device used to write this note Cosigned by Mireya Lindsay MD at 12/05/2023 3:52 PM EDT Associated attestation - Mireya Lindsay MD - 12/05/2023 3:52 PM EDT I saw and evaluated the patient with the resident/fellow. I discussed the case with the resident/fellow and agree with the findings and plan as documented. documented in this encounter Plan of Treatment Not on file documented as of this encounter Procedures Procedure Name Priority Date/Time Associated Diagnosis Comments CT ABDOMEN PELVIS W IV CONTRAST STAT 12/02/2023 9:30 AM EDT URINALYSIS WITH REFLEX MICROSCOPIC STAT 12/02/2023 7:10 AM EDT URINE GUNTER PANEL STAT 12/02/2023 7:10 AM EDT URINALYSIS WITH REFLEX MICROSCOPIC STAT 12/02/2023 7:10 AM EDT CBC WITH AUTO DIFFERENTIAL STAT 12/02/2023 4:34 AM EDT LIPASE, PLASMA STAT 12/02/2023 4:34 AM EDT COMPREHENSIVE METABOLIC PANEL, PLASMA STAT 12/02/2023 4:34 AM EDT EXTRA TUBE GOLD TOP Routine 12/02/2023 4 :14 AM EDT EXTRA TUBES Routine 12/02/2023 4:14 AM EDT documented in this encounter Results * CT Abdomen Pelvis w IV Contrast (12/02/2023 9:30 AM EDT) Anatomical Region Laterality Modality Abdomen, Pelvis Computed Tomogra phy Impressions 12/02/2023 10:29 AM EDT No acute findings within the abdomen or pelvis. Morphologically unremarkable pancreas. 18 mm soft tissue nodule in the medial inferior right breast is again partially visualized. CRITICAL RESULT: ?? No. COMMUNICATION: Per this written report By electronically signing this report, I, the attending physician, attest that I have personally reviewed the images/data for the above examination(s) and agree with the final edited report. Drafted by Alexandria Looney DO on 12/02/2023 9:49 AM Final report signed by Napoleon Mckenna MD on 12/02/2023 10:29 AM Narrative 12/02/2023 10:29 AM EDT CLINICAL INDICATION: Abdominal pain, acute, nonlocalized TECHNIQUE: Imaging of the abdomen and pelvis was performed, from lung bases through pubic symphysis, using spiral technique, following administration of IV contrast, Omnipaque 300, 100 mL. Delayed (excretory phase) images were performed through the kidneys. Reformatted images in the coronal and sagittal planes were generated from the axial data set to facilitate diagnostic accuracy. Total DLP (Dose-Length Product): 812.61 mGy.cm. Please note: The reported value represents the total of one or more individual components during the CT acquisition on this date and at this time, and as such, the same value may appear in more than one CT report depending on the interpreting/reporting physicians. COMPARISON: 10/27/2023 MRCP, 03/14/2023 CT abdomen and pelvis FINDINGS: Lung Bases: The lung bases are clear. Liver/Gallbladder/Biliary system: The liver demonstrates homogeneous enhancement. Status post cholecystectomy. No intra- or extra-hepatic biliary ductal dilatation. Spleen: The spleen enhances homogeneously. Pancreas: The pancreas enhances homogeneously. Adrenals: The adrenals are morphologically unremarkable. Kidneys: The kidneys demonstrate symmetric nephrogram and excretion. No renal or ureteral calculi. No hydronephrosis. Bowel/Mesentery: The small bowel loops are not dilated. Fecalization of the distal small bowel. The large bowel loops are not dilated. The appendix is visualized and normal. Vessels/Lymph Nodes: The abdominal aorta is unremarkable. No lymphadenopathy within the abdomen or pelvis. Fluid Survey: No free fluid in the abdomen. No free fluid in the pelvis. Pelvis: The right ovary is again asymmetrically enlarged, similar to previous exams. Body Wall: Redemonstration of a soft tissue nodule in the inferior partially imaged right breast measuring up to 18 mm on today's exam (series 3, image 1). Bones: No acute fracture. Procedure Note Napoleon Mckenna MD - 12/02/2023 CLINICAL INDICATION: Abdominal pain, acute, nonlocalized TECHNIQUE: Imaging of the abdomen and pelvis was performed, from lung bases throughpubic symphysis, using spiral technique, following administration of IVcontrast, Omnipaque 300, 100 mL. Delayed (excretory phase) images wereperformed through the kidneys. Reformatted images in the coronal andsagittal planes were generated from the axial data set to facilitatediagnostic accuracy. Total DLP (Dose-Length Product): 812.61 mGy.cm. Please note: The reportedvalue represents the total of one or more individual components during theCT acquisition on this date and at this time, and as such, the same valuemay appear in more than one CT report depending on theinterpreting/reporting physicians. COMPARISON: 10/27/2023 MRCP, 03/14/2023 CT abdomen and pelvis FINDINGS: Lung Bases: The lung bases are clear. Liver/Gallbladder/Biliary system: The liver demonstrates homogeneousenhancement. Status post cholecystectomy. No intra- or extra-hepaticbiliary ductal dilatation. Spleen: The spleen enhances homogeneously. Pancreas: The pancreas enhances homogeneously. Adrenals: The adrenals are morphologically unremarkable. Kidneys: The kidneys demonstrate symmetric nephrogram and excretion. Norenal or ureteral calculi. No hydronephrosis. Bowel/Mesentery: The small bowel loops are not dilated. Fecalization ofthe distal small bowel. The large bowel loops are not dilated. Theappendix is visualized and normal. Vessels/Lymph Nodes: The abdominal aorta is unremarkable. Nolymphadenopathy within the abdomen or pelvis. Fluid Survey: No free fluid in the abdomen. No free fluid in the pelvis. Pelvis: The right ovary is again asymmetrically enlarged, similar toprevious exams. Body Wall: Redemonstration of a soft tissue nodule in the inferiorpartially imaged right breast measuring up to 18 mm on today's exam(series 3, image 1). Bones: No acute fracture. IMPRESSION: No acute findings within the abdomen or pelvis. Morphologicallyunremarkable pancreas. 18 mm soft tissue nodule in the medial inferior right breast is againpartially visualized. CRITICAL RESULT: No. COMMUNICATION: Per this written report By electronically signing this report, I, the attending physician, attestthat I have personally reviewed the images/data for the aboveexamination(s) and agree with the final edited report. Drafted by Alexandria Looney DO on 12/02/2023 9:49 AM Final report signed by Napoleon Mckenna MD on 12/02/2023 10:29 AM us Mireya Lindsay MD IMG CT PROCEDURES Final Result * Urine Gunter Panel (12/02/2023 7:10 AM EDT) Extra Reflex urine culture not indicated 12/02/2023 4:01 PM EDT [facility] Comment: Previously prelim verified as Specimen evaluation in progress on 12/02/2023 at 0901 EDT. Previously prelim verified as Specimen evaluation in progress on 12/02/2023 at 1001 EDT. Previously prelim verified as Specimen evaluation in progress on 12/02/2023 at 1101 EDT. Previously prelim verified as Specimen evaluation in progress on 12/02/2023 at 1201 EDT. Previously prelim verified as Specimen evaluation in progress on 12/02/2023 at 1301 EDT. Previously prelim verified as Specimen evaluation in progress on 12/02/2023 at 1401 EDT. Previously prelim verified as Specimen evaluation in progress on 12/02/2023 at 1501 EDT. Urine Urine specimen obtained by clean catch procedure / Unknown Non-blood Collection / Unknown 12/02/2023 7:10 AM EDT 12/02/2023 7:38 AM EDT us Robby Momin MD LAB URINE ORDERABLES Final R esult [facility] [address] [place] [address] * Urinalysis with reflex microscopic (Culture NOT Included) (12/02/2023 7:10 AM EDT) Color, Urine Yellow LAB URINALYSIS - AUTOMATED METHOD 12/02/2023 7:18 AM EDT [facility] Clarity, Urine Clear LAB URINALYSIS - AUTOMATED METHOD 12/02/2023 7:18 AM EDT [facility] Spec Byron, Urine 1.022 1.005 - 1.030 LAB URINALYSIS - AUTOMATED METHOD 12/02/2023 7:18 AM EDT [facility] pH, Urine 7.0 4.5 to 8 LAB URINALYSIS - AUTOMATED METHOD 12/02/2023 7:18 AM EDT [facility] Protein, Urine Negative Negative mg/dL LAB URINALYSIS - AUTOMATED METHOD 12/02/2023 7:18 AM EDT [facility] Glucose, Urine Negative Negative mg/dL LAB URINALYSIS - AUTOMATED METHOD 12/02/2023 7:18 AM EDT [facility] Ketones, Urine Negative Negative mg/dL LAB URINALYSIS - AUTOMATED METHOD 12/02/2023 7:18 AM EDT [facility] Blood, Urine Negative Negative LAB URINALYSIS - AUTOMATED METHOD 12/02/2023 7:18 AM EDT [facility] Bilirubin, Urine Negative Negative LAB URINALYSIS - AUTOMATED METHOD 12/02/2023 7:18 AM EDT [facility] Urobilinogen, Urine 0.2 0.2 to 1.0 mg/dL LAB URINALYSIS - AUTOMATED METHOD 12/02/2023 7:18 AM EDT [facility] Leukocytes, Urine Negative Negative LAB URINALYSIS - AUTOMATED METHOD 12/02/2023 7:18 AM EDT [facility] Nitrite, Urine Negative Negative LAB URINALYSIS - AUTOMATED METHOD 12/02/2023 7:18 AM EDT [facility] Urine Urine specimen obtained by clean catch procedure / Unknown Non-blood Collection / Unknown 12/02/2023 7:10 AM EDT 12/02/2023 7:15 AM EDT us Robby Momin MD LAB URINE ORDERABLES Final R esult [facility] [address] [place] [address] * Lipase (12/02/2023 4:34 AM EDT) Lipase, Plasma 43 19 - 63 U/L 12/02/2023 5:23 AM EDT [facility] Blood Venous blood specimen / Unknown Venipuncture / Unknown 12/02/2023 4:34 AM EDT 12/02/2023 4:43 AM EDT us Robby Momin MD LAB BLOOD ORDERABLES Final R esult [facility] [address] [place] [address] * (ABNORMAL) CMP (12/02/2023 4:34 AM EDT) Glucose, Plasma 120(H) 74 - 99 mg/dL 12/02/2023 5:23 AM EDT [facility] BUN, Plasma 13 7 - 21 mg/dL 12/02/2023 5:23 AM EDT [facility] Creatinine, Plasma 0.53(L) 0.60 - 1.10 mg/dL 12/02/2023 5:23 AM EDT [facility] BUN/Creatinine Ratio 25 12/02/2023 5:23 AM EDT [facility] Sodium, Plasma 138 136 - 145 mmol/L 12/02/2023 5:23 AM EDT [facility] Potassium, Plasma 4.3 3.6 - 4.9 mmol/L 12/02/2023 5:23 AM EDT [facility] Comment:Hemolyzed, result ma y be falsely increased. Chloride, Plasma 106 97 - 107 mmol/L 12/02/2023 5:23 AM EDT [facility] CO2, Plasma 21(L) 22 - 29 mmol/L 12/02/2023 5:23 AM EDT [facility] Anion Gap 11 6 - 16 mmol/L 12/02/2023 5:23 AM EDT [facility] Total Calcium, Plasma 8.5(L) 8.9 - 10.2 mg/dL 12/02/2023 5:23 AM EDT [facility] Total Protein 6.0(L) 6.3 - 7.9 g/dL 12/02/2023 5:23 AM EDT [facility] Albumin, Plasma 3.5 3.5 - 5.2 g/dL 12/02/2023 5:23 AM EDT [facility] AST, Plasma 24 10 - 35 U/L 12/02/2023 5:23 AM EDT [facility] Comment:Hemolyzed, result ma y be falsely increased. ALT, Plasma 13 10 - 35 U/L 12/02/2023 5:23 AM EDT [facility] Alkaline Phosphatase, Plasma 96 35 - 104 U/L 12/02/2023 5:23 AM EDT [facility] Total Bilirubin, Plasma <0.2(L) 0.2 - 1.1 mg/dL 12/02/2023 5:23 AM EDT [facility] eGFRcr 123.1 mL/min/1.7 3m*2 12/02/2023 5:23 AM EDT [facility] Comment:Reported eGFRcr in m L/min/1.73m2 is based the CKD-EPI 2020 equation that does not use a race coefficient. Blood Venous blood specimen / Unknown Venipuncture / Unknown 12/02/2023 4:34 AM EDT 12/02/2023 4:43 AM EDT us Robby Momin MD LAB BLOOD ORDERABLES Final R esult [facility] [address] [place] [address] * (ABNORMAL) CBC w/diff (12/02/2023 4:34 AM EDT) WBC Count 7.10 3.70 - 10.30 10*3/uL LAB HEMATOLOGY METHOD 12/02/2023 4:45 AM EDT [facility] RBC Count 4.07 3.90 - 5.20 10*6/uL LAB HEMATOLOGY METHOD 12/02/2023 4:45 AM EDT [facility] HGB 10.5(L) 11.2 - 15.7 g/dL LAB HEMATOLOGY METHOD 12/02/2023 4:45 AM EDT [facility] HCT 33.3(L) 34.0 - 45.0 % LAB HEMATOLOGY METHOD 12/02/2023 4:45 AM EDT [facility] Platelet Count 238 155 - 369 10*3/uL LAB HEMATOLOGY METHOD 12/02/2023 4:45 AM EDT [facility] MCV 82 79 - 98 fL LAB HEMATOLOGY METHOD 12/02/2023 4:45 AM EDT [facility] MCH 25.8(L) 26.0 - 32.0 pg LAB HEMATOLOGY METHOD 12/02/2023 4:45 AM EDT [facility] MCHC 31.5 30.7 - 35.5 g/dL LAB HEMATOLOGY METHOD 12/02/2023 4:45 AM EDT [facility] RDW 17.3(H) 11.5 - 14.5 % LAB HEMATOLOGY METHOD 12/02/2023 4:45 AM EDT [facility] MPV 9.6 8.8 - 12.5 fL LAB HEMATOLOGY METHOD 12/02/2023 4:45 AM EDT [facility] nRBC 0.0 <=0.0 per 100 WBCs LAB HEMATOLOGY METHOD 12/02/2023 4:45 AM EDT [facility] Differential Type Automated LAB HEMATOLOGY METHOD 12/02/2023 4:45 AM EDT [facility] Neutrophils % 63.0 % LAB HEMATOLOGY METHOD 12/02/2023 4:45 AM EDT [facility] Lymphocytes % 29.0 % LAB HEMATOLOGY METHOD 12/02/2023 4:45 AM EDT [facility] Monocytes % 4.0 % LAB HEMATOLOGY METHOD 12/02/2023 4:45 AM EDT [facility] Eosinophils % 3.0 % LAB HEMATOLOGY METHOD 12/02/2023 4:45 AM EDT [facility] Basophils % 1.0 % LAB HEMATOLOGY METHOD 12/02/2023 4:45 AM EDT [facility] Immature Granulocytes % 0.0 % LAB HEMATOLOGY METHOD 12/02/2023 4:45 AM EDT [facility] Neutrophils Absolute 4.47 1.60 - 6.10 10*3/uL LAB HEMATOLOGY METHOD 12/02/2023 4:45 AM EDT [facility] Lymphocytes Absolute 2.06 1.20 - 3.90 10*3/uL LAB HEMATOLOGY METHOD 12/02/2023 4:45 AM EDT [facility] Monocytes Absolute 0.30 0.30 - 0.90 10*3/uL LAB HEMATOLOGY METHOD 12/02/2023 4:45 AM EDT [facility] Eosinophils Absolute 0.19 0.00 - 0.50 10*3/uL LAB HEMATOLOGY METHOD 12/02/2023 4:45 AM EDT [facility] Basophils Absolute 0.05 0.00 - 0.10 10*3/uL LAB HEMATOLOGY METHOD 12/02/2023 4:45 AM EDT [facility] Immature Granulocytes Absolute 0.03 0.00 - 0.06 10*3/uL LAB HEMATOLOGY METHOD 12/02/2023 4:45 AM EDT [facility] Blood Venous blood specimen / Unknown Venipuncture / Unknown 12/02/2023 4:34 AM EDT 12/02/2023 4:43 AM EDT Narrative [facility] - 12/02/2023 4:45 AM EDT Therapeutic decision making should be based on absolute values, rather than percentages. us Robby Momin MD LAB BLOOD ORDERABLES Final R esult Performing Organization Address City/[facility]/ZIP Co de Phone Number [facility] [address] [place] [address] * [facility] (12/02/2023 4:14 AM EDT) Extra Hold for add-ons 12/02/2023 7:01 AM EDT [facility] Comment:Auto resulted. Blood Venous blood specimen / Unknown 12/02/2023 4:14 AM EDT 12/02/2023 4:44 AM EDT us Robby Momin MD LAB BLOOD ORDERABLES Final R esult [facility] [address] [place] [address] documented in this encounter Visit Diagnoses Diagnosis Acute on chronic pancreatitis (CMS/HCC)- Primary Acute on chronic pancreatitis (CMS/HCC) documented in this encounter Administered Medications Inactive Administered Medications - up to 3 most recent administrations Medication Order MAR Action Action Date Dose Rate Site acetaminophen (Tylenol) 160 MG/5ML solution 1,000 mg 1,000 mg, Oral, Every 6 hours PRN, Starting on Thu12/02/23 at 2116, Until Annabel 12/03/23 at 0502, Routine, mild pain, moderate pain acetaminophen (Tylenol) tablet 1,000 mg 1,000 mg, Oral, Every 6 hours PRN, Starting on Thu12/02/23 at 1740, Until Thu12/02/23 at 2117, Routine, mild pain, moderate pain Given 12/02/2023 6:12 PM EDT 1,000 mg calcium gluconate 2 g in sodium chloride 0.9 % 100 mL infusion 2 g, Intravenous, Once, 1 dose, On Thu12/02/23 at 0930, STAT New Bag 12/02/2023 10:40 AM EDT 2 g dicyclomine (Bentyl) 10 MG/5ML syrup 10 mg 10 mg, Oral, 4 times daily PRN, Starting on Thu12/02/23 at 2144, Until [facility] 12/03/23 at 0502, Routine, for abddominal cramping Given 12/02/2023 10:12 PM EDT 10 mg DULoxetine (Cymbalta) DR capsule 60 mg 60 mg, Oral, Daily, First dose on Thu12/02/23 at 1800, Until Discontinued, Routine Given 12/02/2023 6:12 PM EDT 60 mg enoxaparin (Lovenox) syringe 40 mg 40 mg, Subcutaneous, Daily, First dose on Thu12/02/23 at 1255, Until Discontinued, Routine Given 12/02/2023 2:01 PM EDT 40 mg Left Lower Abdomen famotidine (Pepcid) tablet 20 mg 20 mg, Oral, 2 times daily, First dose on Thu12/02/23 at 2100, Until Discontinued, Routine Given 12/02/2023 9:29 PM EDT 20 mg HYDROmorphone (Dilaudid) injection 0.5 mg 0.5 mg, Intravenous, Once, 1 dose, On Thu12/02/23 at 1520, Routine Given 12/02/2023 3:23 PM EDT 0.5 mg HYDROmorphone (Dilaudid) injection 1 mg 1 mg, Intravenous, Once, 1 dose, On Thu12/02/23 at 0820, Routine Given 12/02/2023 8:29 AM EDT 1 mg HYDROmorphone (Dilaudid) injection 1 mg 1 mg, Intravenous, Once, 1 dose, On Thu12/02/23 at 1120, Routine Given 12/02/2023 11:21 AM EDT 1 mg ibuprofen 100 MG/5ML suspension 400 mg 400 mg, Oral, Every 6 hours PRN, Starting on Thu12/02/23 at 2118, Until Annabel 12/03/23 at 0502, Routine, moderate pain ibuprofen tablet 400 mg 400 mg, Oral, Every 6 hours PRN, Starting on Thu12/02/23 at 1740, Until Thu12/02/23 at 2119, Routine, mild pain Given 12/02/2023 6:12 PM EDT 400 mg iohexol (OMNIPaque) 300 MG/ML injection 100 mL 100 mL, Intravenous, Once in imaging, 1 dose, Starting on Thu12/02/23 at 0900, Until Thu12/02/23 at 0923, Routine, Imaging Protocol Orders Given 12/02/2023 9:23 AM EDT 100 mL lactated Ringer's infusion 500 mL 500 mL, Intravenous, Once, 1 dose, On Thu12/02/23 at 0350, STAT New Bag 12/02/2023 5:23 AM EDT 500 mL metoclopramide (Reglan) injection 10 mg 10 mg, Intravenous, Every 6 hours PRN, Starting on Thu12/02/23 at 1601, Until Annabel 12/03/23 at 0502, Routine, nausea, vomiting Given 12/02/2023 4:17 PM EDT 10 mg metoclopramide (Reglan) tablet 10 mg 10 mg, Oral, Every 6 hours PRN, Starting on Thu12/02/23 at 1601, Until Annabel 12/03/23 at 0502, Routine, nausea, vomiting morphine PF 4 mg 4 mg, Intravenous, Once, 1 dose, On Thu12/02/23 at 0350, STAT Given 12/02/2023 5:23 AM EDT 4 mg ondansetron (Zofran) 4 MG/5ML solution 4 mg 4 mg, Oral, Every 6 hours PRN, Starting on Thu12/02/23 at 1250, Until Annabel 12/03/23 at 0502, Routine, nausea, vomiting ondansetron (Zofran) injection 4 mg 4 mg, Intravenous, Once, 1 dose, On Thu12/02/23 at 0350, STAT Given 12/02/2023 5:23 AM EDT 4 mg ondansetron (Zofran) injection 4 mg 4 mg, Intravenous, Once, 1 dose, On Thu12/02/23 at 0820, STAT Given 12/02/2023 8:29 AM EDT 4 mg ondansetron (Zofran) injection 4 mg 4 mg, Intravenous, Every 6 hours PRN, Starting on Thu12/02/23 at 1250, Until Annabel 12/03/23 at 0502, Routine, vomiting, nausea Given 12/02/2023 9:29 PM EDT 4 mg Given 12/02/2023 2:01 PM EDT 4 mg ondansetron ODT (Zofran-ODT) disintegrating tablet 4 mg 4 mg, Oral, Every 6 hours PRN, Starting on Thu12/02/23 at 1250, Until Annabel 12/03/23 at 0502, Routine, nausea, vomiting oxyCODONE (Roxicodone) immediate release tablet 5 mg 5 mg, Oral, Once, 1 dose, On Thu12/02/23 at 0645, STAT Given 12/02/2023 6:47 AM EDT 5 mg oxyCODONE (Roxicodone) immediate release tablet 5 mg 5 mg, Oral, Every 6 hours PRN, Starting on Thu12/02/23 at 1517, Until Thu12/02/23 at 1739, Routine, moderate pain Given 12/02/2023 4:19 PM EDT 5 mg pantoprazole (Protonix) EC tablet 40 mg 40 mg, Oral, Daily, First dose on Thu12/02/23 at 1515, Until Discontinued, Routine Given 12/02/2023 4:18 PM EDT 40 mg pregabalin (Lyrica) capsule 200 mg 200 mg, Oral, 2 times daily, First dose on Thu12/02/23 at 2100, Until Discontinued Given 12/02/2023 9:28 PM EDT 200 mg promethazine (Phenergan) 6.25 MG/5ML solution 12.5 mg 12.5 mg, Oral, Every 4 hours PRN, Starting on Thu12/02/23 at 1531, Until Annabel 12/03/23 at 0502, Routine, nausea, vomiting Given 12/02/2023 4:50 PM EDT 12.5 mg promethazine (Phenergan) suppository 25 mg 25 mg, Rectal, Every 4 hours PRN, Starting on Thu12/02/23 at 1531, Until Annabel 12/03/23 at 0502, Routine, nausea, vomiting promethazine (Phenergan) tablet 6.25 mg 6.25 mg, Oral, Every 4 hours PRN, Starting on Thu12/02/23 at 1531, Until Annabel 12/03/23 at 0502, Routine, nausea, vomiting sodium chloride 0.9 % flush 10 mL 10 mL, Intravenous, Every 12 hours, First dose on Thu12/02/23 at 1255, Until Discontinued, Routine Given 12/03/2023 12:52 AM EDT 10 mL sodium chloride 0.9 % flush 10 mL 10 mL, Intravenous, As needed, Starting on Thu12/02/23 at 1249, Until Annabel 12/03/23 at 0502, Routine, line care documented in this encounter Active and Recently Administered Medications Times are shown in EDT. Scheduled Medication Order 12/01/2023 12/02/2023 12/03/2023 calcium gluconate 2 g in sodium chloride 0.9 % 100 mL infusion (COMPLETED) 2 g, Intravenous, Once, 1 dose, On Thu12/02/23 at 0930, STAT 1040 (New Bag - Provider: Angela Almeida, CHANDNI)1119 (Stopped - Provider: Angela Almeida RN) DULoxetine (Cymbalta) DR capsule 60 mg 60 mg, Oral, Daily, First dose on Thu12/02/23 at 1800, Until Discontinued, Routine 181 (Given - Provider: Abraham Hartley, RN) enoxaparin (Lovenox) syringe 40 mg 40 mg, Subcutaneous, Daily, First dose on Thu12/02/23 at 1255, Until Discontinued, Routine 1401 (Given - Provider: Stalin Ferrer, RN) famotidine (Pepcid) tablet 20 mg 20 mg, Oral, 2 times daily, First dose on Thu12/02/23 at 2100, Until Discontinued, Routine 9 (Given - Provider: Roya Paige RN) HYDROmorphone (Dilaudid) injection 0.5 mg (COMPLETED) 0.5 mg, Intravenous, Once, 1 dose, On Thu12/02/23 at 1520, Routine 1523 (Given - Provider: Stalin Ferrer RN) HYDROmorphone (Dilaudid) injection 1 mg (COMPLETED) 1 mg, Intravenous, Once, 1 dose, On Thu12/02/23 at 0820, Routine 0829 (Given - Provider: Angela Almeida, CHANDNI) HYDROmorphone (Dilaudid) injection 1 mg (COMPLETED) 1 mg, Intravenous, Once, 1 dose, On Thu12/02/23 at 1120, Routine 1121 (Given - Provider: Angela Almeida RN) iohexol (OMNIPaque) 300 MG/ML injection 100 mL (COMPLETED) 100 mL, Intravenous, Once in imaging, 1 dose, Starting on Thu12/02/23 at 0900, Until Thu12/02/23 at 0923, Routine, Imaging Protocol Orders 0923 (Given - Provider: Shahzad Flowers) lactated Ringer's infusion 500 mL (COMPLETED) 500 mL, Intravenous, Once, 1 dose, On Thu12/02/23 at 0350, STAT 0523 (New Bag - Provider: Brooke Suazo)0645 (Stopped - Provider: Brooke Suazo) morphine PF 4 mg (COMPLETED) 4 mg, Intravenous, Once, 1 dose, On Thu12/02/23 at 0350, STAT 0523 (Given - Provider: Brooke Suazo) ondansetron (Zofran) injection 4 mg (COMPLETED) 4 mg, Intravenous, Once, 1 dose, On Thu12/02/23 at 0350, STAT 0523 (Given - Provider: Brooke Suazo) ondansetron (Zofran) injection 4 mg (COMPLETED) 4 mg, Intravenous, Once, 1 dose, On Thu12/02/23 at 0820, STAT 0829 (Given - Provider: Angela lAmeida RN) oxyCODONE (Roxicodone) immediate release tablet 5 mg (COMPLETED) 5 mg, Oral, Once, 1 dose, On Thu12/02/23 at 0645, STAT 0647 (Given - Provider: Brooke Suazo) pantoprazole (Protonix) EC tablet 40 mg 40 mg, Oral, Daily, First dose on Thu12/02/23 at 1515, Until Discontinued, Routine 1618 (Given - Provider: Stalin Ferrer RN) pregabalin (Lyrica) capsule 200 mg 200 mg, Oral, 2 times daily, First dose on Thu12/02/23 at 2100, Until Discontinued 212 (Given - Provider: Roya Paige RN) sodium chloride 0.9 % flush 10 mL(Linked Group 1) 10 mL, Intravenous, Every 12 hours, First dose on Thu12/02/23 at 1255, Until Discontinued, Routine 1253 (Not Given - Provider: Angela Almeida RN - Reason: Hold for condition: must add comment ) 0052 (Given - Provider: Roya Paige RN) PRN Medication Order 12/01/2023 12/02/2023 12/03/2023 acetaminophen (Tylenol) 160 MG/5ML solution 1,000 mg 1,000 mg, Oral, Every 6 hours PRN, Starting on Thu12/02/23 at 2116, Until Thu12/03/23 at 0502, Routine, mild pain, moderate pain acetaminophen (Tylenol) tablet 1,000 mg (CANCELED) 1,000 mg, Oral, Every 6 hours PRN, Starting on Thu12/02/23 at 1740, Until Thu12/02/23 at 2117, Routine, mild pain, moderate pain 181 (Given - Provider: Zeke Hartley RN) dicyclomine (Bentyl) 10 MG/5ML syrup 10 mg 10 mg, Oral, 4 times daily PRN, Starting on Thu12/02/23 at 2144, Until Thu12/03/23 at 0502, Routine, for abddominal cramping 221 (Given - Provider: Carol Paige RN) ibuprofen 100 MG/5ML suspension 400 mg 400 mg, Oral, Every 6 hours PRN, Starting on Thu12/02/23 at 2118, Until Annabel 12/03/23 at 0502, Routine, moderate pain ibuprofen tablet 400 mg (CANCELED) 400 mg, Oral, Every 6 hours PRN, Starting on Thu12/02/23 at 1740, Until Thu12/02/23 at 2119, Routine, mild pain 1812 (Given - Provider: Zeke Hartley RN) metoclopramide (Reglan) injection 10 mg(Linked Group 2) 10 mg, Intravenous, Every 6 hours PRN, Starting on Thu12/02/23 at 1601, Until Annabel 12/03/23 at 0502, Routine, nausea, vomiting 1617 (Given - Provider: Mango Ferrer, CHANDNI) metoclopramide (Reglan) tablet 10 mg(Linked Group 2) 10 mg, Oral, Every 6 hours PRN, Starting on Thu12/02/23 at 1601, Until Annabel 12/03/23 at 0502, Routine, nausea, vomiting 1617 (See Alternative - Provider: Stalin Ferrer RN) ondansetron (Zofran) 4 MG/5ML solution 4 mg(Linked Group 3) 4 mg, Oral, Every 6 hours PRN, Starting on Thu12/02/23 at 1250, Until Annabel 12/03/23 at 0502, Routine, nausea, vomiting 1401 (See Alternative - Provider: Stalin Ferrer RN)2128 (See Alternative - Provider: Roya Paige RN) ondansetron (Zofran) injection 4 mg(Linked Group 3) 4 mg, Intravenous, Every 6 hours PRN, Starting on Thu12/02/23 at 1250, Until Annabel 12/03/23 at 0502, Routine, vomiting, nausea 1401 (Given - Provider: Mango Ferrer RN)2128 (Given - Provider: Roya Paige, CHANDNI) ondansetron ODT (Zofran-ODT) disintegrating tablet 4 mg(Linked Group 3) 4 mg, Oral, Every 6 hours PRN, Starting on Thu12/02/23 at 1250, Until Annabel 12/03/23 at 0502, Routine, nausea, vomiting 1401 (See Alternative - Provider: Stalin Ferrer RN)2128 (See Alternative - Provider: Roya Paige RN) oxyCODONE (Roxicodone) immediate release tablet 5 mg (CANCELED) 5 mg, Oral, Every 6 hours PRN, Starting on Thu12/02/23 at 1517, Until Thu12/02/23 at 1739, Routine, moderate pain 1619 (Given - Provider: Mango Ferrer RN) promethazine (Phenergan) 6.25 MG/5ML solution 12.5 mg(Linked Group 4) 12.5 mg, Oral, Every 4 hours PRN, Starting on Thu12/02/23 at 1531, Until Annabel 12/03/23 at 0502, Routine, nausea, vomiting 1650 (Given - Provider: Mango Ferrer, RN) promethazine (Phenergan) suppository 25 mg(Linked Group 4) 25 mg, Rectal, Every 4 hours PRN, Starting on Thu12/02/23 at 1531, Until Annabel 12/03/23 at 0502, Routine, nausea, vomiting 1650 (See Alternative - Provider: Stalin Ferrer, CHANDNI) promethazine (Phenergan) tablet 6.25 mg(Linked Group 4) 6.25 mg, Oral, Every 4 hours PRN, Starting on Thu12/02/23 at 1531, Until Annabel 12/03/23 at 0502, Routine, nausea, vomiting 1650 (See Alternative - Provider: Stalin Ferrer, RN) sodium chloride 0.9 % flush 10 mL(Linked Group 1) 10 mL, Intravenous, As needed, Starting on Thu12/02/23 at 1249, Until Annabel 12/03/23 at 0502, Routine, line care Linked Groups Order Group 1: Insert peripheral IV (COMPLETED) Once, On Thu12/02/23 at 1250, For 1 occurrence And Saline lock IV (COMPLETED) Once, On Thu12/02/23 at 1250, For 1 occurrence And sodium chloride 0.9 % flush 10 mLJump to med 10 mL, Intravenous, Every 12 hours, First dose on Thu12/02/23 at 1255, Until Discontinued, Routine And sodium chloride 0.9 % flush 10 mLJump to med 10 mL, Intravenous, As needed, Starting on Thu12/02/23 at 1249, Until Annabel 12/03/23 at 0502, Routine, line care Group 2: metoclopramide (Reglan) tablet 10 mgJump to med 10 mg, Oral, Every 6 hours PRN, Starting on Thu12/02/23 at 1601, Until Annabel 12/03/23 at 0502, Routine, nausea, vomiting Or metoclopramide (Reglan) injection 10 mgJump to med 10 mg, Intravenous, Every 6 hours PRN, Starting on Thu12/02/23 at 1601, Until Annabel 12/03/23 at 0502, Routine, nausea, vomiting Group 3: ondansetron ODT (Zofran-ODT) disintegrating tablet 4 mgJump to med 4 mg, Oral, Every 6 hours PRN, Starting on Thu12/02/23 at 1250, Until Annabel 12/03/23 at 0502, Routine, nausea, vomiting Or ondansetron (Zofran) injection 4 mgJump to med 4 mg, Intravenous, Every 6 hours PRN, Starting on Thu12/02/23 at 1250, Until Annabel 12/03/23 at 0502, Routine, vomiting, nausea Or ondansetron (Zofran) 4 MG/5ML solution 4 mgJump to med 4 mg, Oral, Every 6 hours PRN, Starting on Thu12/02/23 at 1250, Until Annabel 12/03/23 at 0502, Routine, nausea, vomiting Group 4: promethazine (Phenergan) tablet 6.25 mgJump to med 6.25 mg, Oral, Every 4 hours PRN, Starting on Thu12/02/23 at 1531, Until Annabel 12/03/23 at 0502, Routine, nausea, vomiting Or promethazine (Phenergan) 6.25 MG/5ML solution 12.5 mgJump to med 12.5 mg, Oral, Every 4 hours PRN, Starting on Thu12/02/23 at 1531, Until Annabel 12/03/23 at 0502, Routine, nausea, vomiting Or promethazine (Phenergan) suppository 25 mgJump to med 25 mg, Rectal, Every 4 hours PRN, Starting on Thu12/02/23 at 1531, Until Annabel 12/03/23 at 0502, Routine, nausea, vomiting documented in this encounter Additional Health Concerns Assessment Noted Time A fall risk assessment has been complete d for the patient 11/21/2020 2:30 PM EDT A Body Mass Index follow-up plan has been documented for the patient 10/28/2023 1:22 PM EDT documented as of this encounter 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
--- OUTSIDE RECORDS SUMMARY | 2024-02-03 15:08 | XMS_ITS | Encounter Summary ---
Author Organization Healthcare Address [address] [place] [address] Care Team Providers Care [place] Name Role Phone QamarLisa mckeon Beatriz ORELLANA Primary Care Provider [phone] Calyl Tilley LPN Unavailable Unavailable Encounter Details Date Type Department Care Team (Latest Contact Info) Description 12/16/2023 Travel Social History Tobacco Use Types Packs/Day [...] place to sleep or slept in a care home (including now)? No 10/27/2023 CAGE ASSESSMENT [...] drink first t caleb in the morning ([employer]) to steady your nerves or to get rid of a hangover? 0 10/24/2023 CAGE Questionnaire Score 0 024 Utilities Answer Date Recorded In the past 12 months has th e [employer], gas, oil, or water company threatened to [...] documented as of this encounter Care Teams [place] Relationship Specialty Start Date End Date Lisa Foote APRN [address] [place] [address] PCP - General 10/23/23 Cally Tilley LPN [employer] [place] [address] TCM Nurse 12/03/23 01/01/24 documented as of this encounter
--- OUTSIDE RECORDS SUMMARY | 2024-02-03 15:08 | XMS_ITS | Encounter Summary ---
Author Organization Healthcare Address [address] [place] [address] Care Team Providers Care Licensed Vocational Nurse Name Role Phone Lisa Foote ESTEBAN Primary Care Provider Cally Tilley LPN Unavailable Unavailable Reason for Visit * Reason Comments Abdominal Pain Vomiting Encounter Details Date Type Department Care Team (Late st Contact Info) Description 12/16/2023 3:33 AM EDT - 12/16/2023 6:48 AM EDT Emergency [facility] Emergency Department [address] [place] [address] Bg Rehman DO [address] [place] [address] Nausea and vomiting, unspecified vomiting [...] place to sleep or slept in a halfway (including now)? No 10/27/2023 CAGE ASSESSMENT Answer [...] drink first t caleb in the morning ([employer]) to steady your nerves or to get [...] Sign Reading Time Taken Comments Blood Pressure 131/88 12/16/2023 6:38 AM EDT Pulse 92 12/16/2023 6:38 AM EDT Temperature 36.7 ??C (98 ??F) 12/16/2023 6:38 AM EDT Respiratory Rate 18 12/16/2023 6:38 AM EDT Oxygen Saturation 97% 12/16/2023 6:38 AM EDT Inhaled Oxygen Concentration - - Weight 95 kg (209 lb 7 oz) 12/16/2023 3:27 AM ED T Height 165.1 cm (5' 5 ) 12/16/2023 3:27 AM EDT Body Mass Index 34.85 12/16/2023 3:27 AM EDT documented in this encounter Functional [...] (six) hours if needed for pain. Under [place] law, monthly prescriptions (30 days) can be [...] pain. 30 tablet 4 01/22/20 24 pancrelipase, [facility], (Creon) [id number] units capsule Take 2 capsules by mouth [...] Miscellaneous Notes * ED Provider Notes - Veda Levy PA - 12/16/2023 3:24 AM EDT Images from the original note were not included. - HPI Chief Complaint Patient presents with Abdominal Pain Vomiting The patient is a 37 yo WF with a history of anxiety/depression, fibromyalgia, HTN, GERD, gastric erosions, nicotine dependence, obesity and prior pancreatitis, s/p cholecystectomy that presents with a 3 day history of epigastric pain radiating to the LUQ that she reports feels similar to prior episodes of pancreatitis. She complains of decreased appetite, nausea, vomiting and diarrhea but denies hematemesis, black/bloody stools, fever or chills and has tried nothing for her symptoms to this point. She does smoke marijuana reportedly approximately a few times a month . Upon chart review it appears the patient has had multiple CT scans of her abdomen/pelvis, including MRCP with no evidence of acute or chronic pancreatitis changes. She also reports a prior dystonic reaction to droperidol. 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 by: Patient and medical records Patient History Past Medical History: Diagnosis Date Anxiety Arthritis Depression Fibromyalgia Gastric erosions 04/19/2021 GERD (gastroesophageal reflux disease) Hypertension Intentional overdose ([facility]) 12/20/2021 Nicotine dependence Obesity Pancreatitis Past [...] attacks too. Physical Exam ED Triage Vitals [12/16/23 0327] Temp Heart Rate Resp BP 36.7 ??C (98.1 ??F) 100 16 (!) 143/85 SpO2 Temp Source Heart Rate Source Patient Position 98 % Oral -- Sitting BP Location FiO2 (%) Right arm -- Physical Exam Vitals and nursing note reviewed. Exam conducted with a stock tracer present (RN). Constitutional: Appearance: She is well-developed. HENT: Head: Normocephalic and atraumatic. Cardiovascular: Rate and Rhythm: Normal rate and regular rhythm. Pulmonary: Effort: Pulmonary effort is normal. Breath sounds: Normal breath sounds. Abdominal: General: There is no distension. Palpations: Abdomen is soft. Tenderness: There is abdominal tenderness in the epigastric area and left upper quadrant. There is no guarding or rebound. Neurological: General: No focal deficit present. Mental Status: She is alert and oriented to person, place, and time. Psychiatric: Mood and Affect: Mood is anxious. [place] Coma Scale Score: 15 ED Course & MDM Lab Results Labs Reviewed COMPREHENSIVE METABOLIC PANEL, PLASMA - Abnormal Result Value Glucose, Plasma 95 BUN, Plasma 6 (*) Creatinine, Plasma 0.58 (*) BUN/Creatinine Ratio 10 Sodium, Plasma 138 Potassium, Plasma 3.7 Chloride, Plasma 104 CO2, Plasma 22 Anion Gap 12 Total Calcium, Plasma 9.0 Total Protein 6.8 Albumin, Plasma 4.1 AST, Plasma 20 ALT, Plasma 14 Alkaline Phosphatase, Plasma 89 Total Bilirubin, Plasma 0.5 eGFRcr 120.5 CBC WITH AUTO DIFFERENTIAL - Abnormal WBC Count 5.06 RBC Count 4.01 HGB 10.3 (*) HCT 32.8 (*) Platelet Count 222 MCV 82 MCH 25.7 (*) MCHC 31.4 RDW 16.5 (*) MPV 9.6 nRBC 0.0 Differential Type Automated Neutrophils % 52 Lymphocytes % 39 Monocytes % 5 Eosinophils % 3 Basophils % 1 Immature Granulocytes % 0 Neutrophils Absolute 2.59 Lymphocytes Absolute 1.98 Monocytes Absolute 0.27 (*) Eosinophils Absolute 0.15 Basophils Absolute 0.06 Immature Granulocytes Absolute 0.01 Narrative: Therapeutic decision making should be based on absolute values, rather than percentages. MAGNESIUM, PLASMA - Normal Magnesium, Plasma 2.3 LIPASE, PLASMA - Normal Lipase, Plasma 31 LACTATE, VENOUS - Normal Lactate, Venous, Whole Blood 0.9 URINALYSIS WITH REFLEX MICROSCOPIC Color, Urine Yellow Clarity, Urine Clear Spec [place], Urine 1.008 pH, Urine 6.0 Protein, Urine Negative Glucose, Urine Negative Ketones, Urine Negative Blood, Urine Negative Bilirubin, Urine Negative Urobilinogen, Urine 0.2 Leukocytes, Urine Negative Nitrite, Urine Negative URINALYSIS WITH REFLEX MICROSCOPIC AND CULTURE Narrative: The following orders were created for panel order Urinalysis with reflex microscopic AND reflex culture (IF UTI SUSPECTED). Procedure Abnormality Status --------- ------ Urinalysis with reflex m...[[id number]] Final result Urine Gunter Panel[[id number]] In process Please view results for these tests on the individual orders. URINE GUNTER PANEL Imaging Results No orders to display - Assessment: 37 y.o. female presents to ED with complaint of nausea, vomiting, diarrhea, epigastric/LUQ abdominal pain, similar to pain she has experienced during multiple prior ED visits with negative CT imagingstudies. It should be noted that the chronic conditions includes marijuana use, anxiety/depression, fibromyalgia, HTN, GERD, gastric erosions, nicotine dependence, obesity and prior pancreatitis, s/pcholecystectomy which currently is not at goal therapy. This complicates the clinical picture because it Comorbidities: may be exacerbating symptoms and increases the risk for morbidity Differential Diagnosis: gastritis, gastroparesis, GERD, acute vs chronic pancreatitis, cannabinoid hyperemesis syndrome In order to fully explore the differential diagnosis the following treatments and tests were ordered: ED Medication Administration from 12/16/2023 0323 to 12/16/202334 Date/Time Order Dose Route Action 12/16/2023422 EDT ondansetron (Zofran) injection 4 mg 4 mg Intravenous Given 12/16/2023423 EDT morphine PF 4 mg 4 mg Intravenous Given 12/16/2023 0517 EDT diphenhydrAMINE (Benadryl) injection 25 mg 25 mg Intravenous Not Given 12/16/2023516 EDT haloperidol lactate (Haldol) injection 2 mg 2 mg Intravenous Given 12/16/2023 0530 EDT haloperidol lactate (Haldol) injection 2 mg 2 mg Intravenous Not Given 12/16/2023 0633 EDT famotidine PF (Pepcid) injection 20 mg 20 mg Intravenous Given 12/16/202333 EDT morphine PF 4 mg 4 mg Intravenous Given 12/16/202333 EDT ondansetron (Zofran) injection 4 mg 4 mg Intravenous Given 12/16/202334 EDT gi cocktail oral solution 30 mL 30 mL Oral Given All Other Orders Ordered Status Ordering Provider 12/16/23 0341 CMP STAT Final result VEDA LEVY 12/16/23 034 Magnesium STAT Final result VEDA LEVY Chapo 12/16/23 034 Lipase STAT Final result DANIELLE, VEDA R 12/16/23 034 Lactic acid, venous STAT Final result REENA LEVYBibiana Cowan 12/16/23 034 CBC w/diff STAT Final result VEDA LEVY Chapo 12/16/23 034 Urinalysis with reflex microscopic AND reflex culture (IF UTI SUSPECTED) STAT In process VEDA LEVY 12/16/23 034 Urinalysis with reflex microscopic (Culture NOT Included) PROCEDURE ONCE Final result DANIELLE, VEDA R 12/16/23 034 Urine Gunter Panel PROCEDURE ONCE In process VEDA LEVY ED Course as of 12/16/23 06ThuDec 16, 2023 0502 Rechecked patient, still with left upper abdominal pain, nausea and vomiting; reviewed prior CT imaging findings with patient regarding no obvious findings of chronic pancreatitis. Will trial IVHaldol for symptoms. [LE] 0504 Since patient experienced dystonic reaction with droperidol, will give IV diphenhydramine withIV haloperidol. [LE] ED Course User Index [LE] Veda Levy, DANIA Clinical Impressions as of 12/16/23 06 Nausea and vomiting, unspecified vomiting type Cannabinoid hyperemesis syndrome Generalized abdominal pain Social Determinates of Health Risks (including Economic Stability, Education and level of understanding, Healthcare access and quality and concerning social factors): Poor health literacy and Acute or chronic drug and alcohol use Ultimately, this patient was was signed out to the oncoming provider (Signed Out) Patient care assumed by oncoming provider, ED Attending, Dr. Rehman, at shift change, tentative plan at the time of sign-out was symptomatic control of nausea, vomiting and abdominal pain. ED Prescriptions Medication Sig Dispense Start Date End Date Auth. Provider ondansetron ODT (Zofran-ODT) 4 MG disintegrating tablet Take 1 tablet (4 mg) by mouth every 6 (six)hours if needed for nausea. 12 tablet 12/16/2023 01/15/2024 Bg Rehman, Disposition Discharge Follow-Ups Call Lisa Foote APRN in 2 days (2023) Follow up with [facility] Emergency Department (Emergency Medicine); As needed - Veda Levy PA 12/16/23 0507 Veda Levy PA 12/16/23 0508 Bg Rehman DO 12/16/23 0635 Cosigned by Bg Rehman DO at 12/16/2023 6:35 AM EDT Associated attestation - Bg Rehman DO - 12/16/2023 6:35 AM EDT I attest to being involved in providing substantive part of the medical decision making in patient care. * ED Triage Notes - Abigail Myers RN - 12/16/2023 3:24 AM EDT Pt c/o left sided abdominal pain x several days. Worsened last pm. Pt states pain radiates to left flank. Pt also c/o nausea and vomiting. Pt has h/o anxiety. Pt states stabbing and aching pain. Pt took Tylenol 650mg at 12am and bentyl at 12am. Carafate at 0130am. Lyrica 8pm; Imodium 11pm. Marijuana approximately 3 hours ago. documented in this encounter Plan of Treatment Not on file documented as of this encounter Procedures Procedure Name Priority Date/Time Associated Diagnosis Comments URINALYSIS WITH REFLEX MICROSCOPIC STAT 12/16/2023 5:29 AM EDT URINE GUNTER PANEL STAT 12/16/2023 5:29 AM EDT URINALYSIS WITH REFLEX MICROSCOPIC STAT 12/16/2023 5:29 AM EDT LACTATE, VENOUS STAT 12/16/2023 4:23 AM EDT CBC WITH AUTO DIFFERENTIAL STAT 12/16/2023 4:23 AM EDT MAGNESIUM, PLASMA STAT 12/16/2023 4:2 3 AM EDT LIPASE, PLASMA STAT 12/16/2023 4:23 AM EDT COMPREHENSIVE METABOLIC PANEL, PLASMA STAT 12/16/2023 4:23 AM EDT documented in this encounter Results * Urine Gunter Panel (12/16/2023 5:29 AM EDT) Extra Reflex urine culture not indicated 12/16/2023 2:01 PM EDT [facility] Comment: Previously prelim verified as Specimen evaluation in progress on 12/16/2023 at 0701 EDT. Previously prelim verified as Specimen evaluation in progress on 12/16/2023 at 0802 EDT. Previously prelim verified as Specimen evaluation in progress on 12/16/2023 at 0901 EDT. Previously prelim verified as Specimen evaluation in progress on 12/16/2023 at 1001 EDT. Previously prelim verified as Specimen evaluation in progress on 12/16/2023 at 1101 EDT. Previously prelim verified as Specimen evaluation in progress on 12/16/2023 at 1201 EDT. Previously prelim verified as Specimen evaluation in progress on 12/16/2023 at 1301 EDT. Urine Urine specimen obtained by clean catch procedure / Unknown Non-blood Collection / Unknown 12/16/2023 5:29 AM EDT 12/16/2023 5:32 AM EDT us Veda NAJERA LAB URINE ORDERABLES Final R esult [facility] [address] [id number] * Urinalysis with reflex microscopic (Culture NOT Included) (12/16/2023 5:29 AM EDT) Color, Urine Yellow LAB URINALYSIS - AUTOMATED METHOD 12/16/2023 5:37 AM EDT [facility] Clarity, Urine Clear LAB URINALYSIS - AUTOMATED METHOD 12/16/2023 5:37 AM EDT [facility] Spec [place], Urine 1.008 1.005 - 1.030 LAB URINALYSIS - AUTOMATED METHOD 12/16/2023 5:37 AM EDT [facility] pH, Urine 6.0 4.5 to 8 LAB URINALYSIS - AUTOMATED METHOD 12/16/2023 5:37 AM EDT [facility] Protein, Urine Negative Negative mg/dL LAB URINALYSIS - AUTOMATED METHOD 12/16/2023 5:37 AM EDT [facility] Glucose, Urine Negative Negative mg/dL LAB URINALYSIS - AUTOMATED METHOD 12/16/2023 5:37 AM EDT [facility] Ketones, Urine Negative Negative mg/dL LAB URINALYSIS - AUTOMATED METHOD 12/16/2023 5:37 AM EDT [facility] Blood, Urine Negative Negative LAB URINALYSIS - AUTOMATED METHOD 12/16/2023 5:37 AM EDT [facility] Bilirubin, Urine Negative Negative LAB URINALYSIS - AUTOMATED METHOD 12/16/2023 5:37 AM EDT [facility] Urobilinogen, Urine 0.2 0.2 to 1.0 mg/dL LAB URINALYSIS - AUTOMATED METHOD 12/16/2023 5:37 AM EDT [facility] Leukocytes, Urine Negative Negative LAB URINALYSIS - AUTOMATED METHOD 12/16/2023 5:37 AM EDT [facility] Nitrite, Urine Negative Negative LAB URINALYSIS - AUTOMATED METHOD 12/16/2023 5:37 AM EDT [facility] Urine Urine specimen obtained by clean catch procedure / Unknown Non-blood Collection / Unknown 12/16/2023 5:29 AM EDT 12/16/2023 5:32 AM EDT us Veda NAJERA LAB URINE ORDERABLES Final R esult [facility] [address] [place] [address] * (ABNORMAL) CBC w/diff (12/16/2023 4:23 AM EDT) WBC Count 5.06 3.70 - 10.30 10*3/uL LAB HEMATOLOGY METHOD 12/16/2023 4:30 AM EDT [facility] RBC Count 4.01 3.90 - 5.20 10*6/uL LAB HEMATOLOGY METHOD 12/16/2023 4:30 AM EDT [facility] HGB 10.3(L) 11.2 - 15.7 g/dL LAB HEMATOLOGY METHOD 12/16/2023 4:30 AM EDT [facility] HCT 32.8(L) 34.0 - 45.0 % LAB HEMATOLOGY METHOD 12/16/2023 4:30 AM EDT [facility] Platelet Count 222 155 - 369 10*3/uL LAB HEMATOLOGY METHOD 12/16/2023 4:30 AM EDT [facility] MCV 82 79 - 98 fL LAB HEMATOLOGY METHOD 12/16/2023 4:30 AM EDT [facility] MCH 25.7(L) 26.0 - 32.0 pg LAB HEMATOLOGY METHOD 12/16/2023 4:30 AM EDT [facility] MCHC 31.4 30.7 - 35.5 g/dL LAB HEMATOLOGY METHOD 12/16/2023 4:30 AM EDT [facility] RDW 16.5(H) 11.5 - 14.5 % LAB HEMATOLOGY METHOD 12/16/2023 4:30 AM EDT [facility] MPV 9.6 8.8 - 12.5 fL LAB HEMATOLOGY METHOD 12/16/2023 4:30 AM EDT [facility] nRBC 0.0 <=0.0 per 100 WBCs LAB HEMATOLOGY METHOD 12/16/2023 4:30 AM EDT [facility] Differential Type Automated LAB HEMATOLOGY METHOD 12/16/2023 4:30 AM EDT [facility] Neutrophils % 52 % LAB HEMATOLOGY METHOD 12/16/2023 4:30 AM EDT [facility] Lymphocytes % 39 % LAB HEMATOLOGY METHOD 12/16/2023 4:30 AM EDT [facility] Monocytes % 5 % LAB HEMATOLOGY METHOD 12/16/2023 4:30 AM EDT [facility] Eosinophils % 3 % LAB HEMATOLOGY METHOD 12/16/2023 4:30 AM EDT [facility] Basophils % 1 % LAB HEMATOLOGY METHOD 12/16/2023 4:30 AM EDT [facility] Immature Granulocytes % 0 % LAB HEMATOLOGY METHOD 12/16/2023 4:30 AM EDT [facility] Neutrophils Absolute 2.59 1.60 - 6.10 10*3/uL LAB HEMATOLOGY METHOD 12/16/2023 4:30 AM EDT [facility] Lymphocytes Absolute 1.98 1.20 - 3.90 10*3/uL LAB HEMATOLOGY METHOD 12/16/2023 4:30 AM EDT [facility] Monocytes Absolute 0.27(L) 0.30 - 0.90 10*3/uL LAB HEMATOLOGY METHOD 12/16/2023 4:30 AM EDT [facility] Eosinophils Absolute 0.15 0.00 - 0.50 10*3/uL LAB HEMATOLOGY METHOD 12/16/2023 4:30 AM EDT [facility] Basophils Absolute 0.06 0.00 - 0.10 10*3/uL LAB HEMATOLOGY METHOD 12/16/2023 4:30 AM EDT [facility] Immature Granulocytes Absolute 0.01 0.00 - 0.06 10*3/uL LAB HEMATOLOGY METHOD 12/16/2023 4:30 AM EDT [facility] Blood Venous blood specimen / Unknown Venipuncture / Unknown 12/16/2023 4:23 AM EDT 12/16/2023 4:30 AM EDT Narrative [facility] - 12/16/2023 4:30 AM EDT Therapeutic decision making should be based on absolute values, rather than percentages. us Veda NAJERA LAB BLOOD ORDERABLES Final R esult [facility] [address] [place] [id number] * Lactic acid, venous (12/16/2023 4:23 AM EDT) Lactate, Venous, Whole Blood 0.9 0.5 - 2.2 mmol/L LAB HEMATOLOGY METHOD 12/16/2023 4:31 AM EDT [facility] Blood Venous blood specimen / Unknown Venipuncture / Unknown 12/16/2023 4:23 AM EDT 12/16/2023 4:28 AM EDT us Veda NAJERA LAB BLOOD ORDERABLES Final R esult Performing Organization Address City/[facility]/ZIP Co de Phone Number [facility] [address] [place] [address] * Lipase (12/16/2023 4:23 AM EDT) Lipase, Plasma 31 19 - 63 U/L 12/16/2023 4:58 AM EDT [facility] Blood Venous blood specimen / Unknown Venipuncture / Unknown 12/16/2023 4:23 AM EDT 12/16/2023 4:58 AM EDT us Veda NAJERA LAB BLOOD ORDERABLES Final R esult Performing Organization Address City/[facility]/ZIP Co de Phone Number [facility] [address] [place] [address] * Magnesium (12/16/2023 4:23 AM EDT) Magnesium, Plasma 2.3 1.9 - 2.4 mg/dL 12/16/2023 4:58 AM EDT [facility] Blood Venous blood specimen / Unknown Venipuncture / Unknown 12/16/2023 4:23 AM EDT 12/16/2023 4:58 AM EDT us Veda NAJERA LAB BLOOD ORDERABLES Final R esult Performing Organization Address City/[facility]/ZIP Co de Phone Number [facility] [address] [place] [address] * (ABNORMAL) CMP (12/16/2023 4:23 AM EDT) Glucose, Plasma 95 74 - 99 mg/dL 12/16/2023 4:58 AM EDT [facility] BUN, Plasma 6(L) 7 - 21 mg/dL 12/16/2023 4:58 AM EDT [facility] Creatinine, Plasma 0.58(L) 0.60 - 1.10 mg/dL 12/16/2023 4:58 AM EDT [facility] BUN/Creatinine Ratio 10 12/16/2023 4:58 AM EDT [facility] Sodium, Plasma 138 136 - 145 mmol/L 12/16/2023 4:58 AM EDT [facility] Potassium, Plasma 3.7 3.6 - 4.9 mmol/L 12/16/2023 4:58 AM EDT [facility] Chloride, Plasma 104 97 - 107 mmol/L 12/16/2023 4:58 AM EDT [facility] CO2, Plasma 22 22 - 29 mmol/L 12/16/2023 4:58 AM EDT [facility] Anion Gap 12 6 - 16 mmol/L 12/16/2023 4:58 AM T [facility] Total Calcium, Plasma 9.0 8.9 - 10.2 mg/dL 12/16/2023 4:58 AM T [facility] Total Protein 6.8 6.3 - 7.9 g/dL 12/16/2023 4:58 AM T [facility] Albumin, Plasma 4.1 3.5 - 5.2 g/dL 12/16/2023 4:58 AM EDT [facility] AST, Plasma 20 10 - 35 U/L 12/16/2023 4:58 AM T [facility] ALT, Plasma 14 10 - 35 U/L 12/16/2023 4:58 AM T [facility] Alkaline Phosphatase, Plasma 89 35 - 104 U/L 12/16/2023 4:58 AM T [facility] Total Bilirubin, Plasma 0.5 0.2 - 1.1 mg/dL 12/16/2023 4:58 AM EDT [facility] eGFRcr 120.5 mL/min/1.7 3m*2 12/16/2023 4:58 AM T [facility] Comment:Reported eGFRcr in m L/min/1.73m2 is based the CKD-EPI 2020 equation that does not use a race coefficient. Blood Venous blood specimen / Unknown Venipuncture / Unknown 12/16/2023 4:23 AM EDT 12/16/2023 4:58 AM EDT us Veda NAJERA LAB BLOOD ORDERABLES Final R esult [facility] [address] [place] [address] documented in this encounter Visit Diagnoses Diagnosis Nausea and vomiting, unspecified vomiting type- Primary Cannabinoid hyperemesis syndrome Generalized abdominal pain Abdominal pain, generalized documented in this encounter Administered Medications Inactive Administered Medications - up to 3 most recent administrations Medication Order MAR Action Action Date Dose Rate Site famotidine PF (Pepcid) injection 20 mg 20 mg, Intravenous, Once, 1 dose, On Thu12/16/23 at 0620, STAT Given 12/16/2023 6:33 AM EDT 20 mg gi cocktail oral solution 30 mL 30 mL, Oral, Once, 1 dose, On Thu12/16/23 at 0620, STAT Given 12/16/2023 6:34 AM EDT 30 mL haloperidol lactate (Haldol) injection 2 mg 2 mg, Intravenous, Once, 1 dose, On Thu12/16/23 at 0505, STAT Given 12/16/2023 5:17 AM EDT 2 mg morphine PF 4 mg 4 mg, Intravenous, Once, 1 dose, On Thu12/16/23 at 0345, STAT Given 12/16/2023 4:24 AM EDT 4 mg morphine PF 4 mg 4 mg, Intravenous, Once, 1 dose, On Thu12/16/23 at 0620, STAT Given 12/16/2023 6:33 AM EDT 4 mg ondansetron (Zofran) injection 4 mg 4 mg, Intravenous, Once, 1 dose, On Thu12/16/23 at 0345, STAT Given 12/16/2023 4:23 AM EDT 4 mg ondansetron (Zofran) injection 4 mg 4 mg, Intravenous, Once, 1 dose, On Thu12/16/23 at 0620, STAT Given 12/16/2023 6:33 AM EDT 4 mg documented in this encounter Active and Recently Administered Medications Times are shown in EDT. Scheduled Medication Order 12/14/2023 12/15/2023 12/16/2023 diphenhydrAMINE (Benadryl) injection 25 mg 25 mg, Intravenous, Once, 1 dose, On Thu12/16/23 at 0505, Routine 0517 (Not Given - Pr ovider: Mendy Balderas - Reason: Patient/family refused) famotidine PF (Pepcid) injection 20 mg (COMPLETED) 20 mg, Intravenous, Once, 1 dose, On Thu12/16/23 at 0620, STAT 0633 (Given - Provid er: Mendy Balderas) gi cocktail oral solution 30 mL (COMPLETED) 30 mL, Oral, Once, 1 dose, On Thu12/16/23 at 0620, STAT 0634 (Given - Provid er: Mendy Balderas) haloperidol lactate (Haldol) injection 2 mg (COMPLETED) 2 mg, Intravenous, Once, 1 dose, On Thu12/16/23 at 0505, STAT 0517 (Given - Provid er: Mendy Balderas)0530 (Not Given - Provider: Mendy Balderas - Reason: Patient/family refused) morphine PF 4 mg (COMPLETED) 4 mg, Intravenous, Once, 1 dose, On Thu12/16/23 at 0345, STAT 0424 (Given - Provid er: Mendy Balderas) morphine PF 4 mg (COMPLETED) 4 mg, Intravenous, Once, 1 dose, On Thu12/16/23 at 0620, STAT 0633 (Given - Provid er: Mendy Balderas) ondansetron (Zofran) injection 4 mg (COMPLETED) 4 mg, Intravenous, Once, 1 dose, On Thu12/16/23 at 0345, STAT 0423 (Given - Provid er: Mendy Balderas) ondansetron (Zofran) injection 4 mg (COMPLETED) 4 mg, Intravenous, Once, 1 dose, On Thu12/16/23 at 0620, STAT 0633 (Given - Provid er: Mendy Balderas) documented in this encounter Additional Health Concerns Assessment Noted Time A fall risk assessment has been complete d for the patient 11/21/2020 2:30 PM EDT A Body Mass Index follow-up plan has been documented for the patient 10/28/2023 1:22 PM EDT documented as of this encounter Care Teams Licensed Vocational Nurse Relationship Specialty Start Date End Date Lisa Foote APRN [address] [place] [address] PCP - General 10/23/23 Cally Tilley, [employer] [place] [address] TCM Nurse 12/03/23 01/01/24 documented as of this encounter
--- OUTSIDE RECORDS SUMMARY | 2024-02-03 15:08 | XMS_ITS | Encounter Summary ---
Author Organization Healthcare Address [address] [place] [address] Care Team Providers Care Race Engine Builder Name Role Phone QamarLisa mckeon Beatriz ORELLANA Primary Care Provider [phone] Cally Tilley LPN Unavailable Unavailable Encounter Details Date Type Department Care Team (Latest Contact Info) Description 12/14/2023 Travel Social History Tobacco Use Types Packs/Day [...] place to sleep or slept in a half-way (including now)? 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 0 10/24/2023 CAGE Questionnaire Score 0 024 Utilities Answer Date Recorded In the past 12 months has th e [employer], gas, oil, or water company threatened to [...] of Assessment Author No 04/14/2023 2:20 PM Laueren Carrillo RN * Do you have serious [...] documented as of this encounter Care Teams Race Engine Builder Relationship Specialty Start Date End Date Lisa Foote APRN [address] [place] [address] PCP - General 10/23/23 Cally Tilley LPN [employer] [place] [address] TCM Nurse 12/03/23 01/01/24 documented as of this encounter
--- OUTSIDE RECORDS SUMMARY | 2024-02-03 15:08 | XMS_ITS | Encounter Summary ---
Author Organization Healthcare Address [address] [place] [address] Care Team Providers Care Hot Wound Spring Production Supervisor Name Role Phone Lisa Foote ESTEBAN Primary Care Provider [phone] Amira Solis LPN Unavailable Unavailable Cally Tilley LPN Unavailable Unavailable Reason for Visit * Reason Comments TCM Call Encounter Details Date Type Department Care Team (Late st Contact Info) Description 12/03/2023 Patient Outreach POPULATION HEALTH [address] [place] [phone] Amira Solis LPN [employer] [address] TCM Call Social History Tobacco Use Types [...] drink first t caleb in the morning (EYE-VP RESEARCH) to steady your nerves or to get [...] encounter Miscellaneous Notes * Progress Notes - Amira Solis LPN - 12/03/2023 10:46 AM EDT 12/03/23 Call Day #1 Admission Date: 12/02/23 Discharge Date: 12/03/23 Hospital Service: Hospital Medicine Diagnosis: Acute on Chronic Pancreatitis (CMS/HCC) documented in this encounter Plan of Treatment [...] as of this encounter Care Teams Hot Wound Spring Production Supervisor Relationship Specialty Start Date End Date Lisa Foote APRN [address] [place], [place] [id number] PCP - General 10/23/23 Amira Solis LPN [employer] [place] [address] TCM Nurse 12/03/23 12/03/23 Cally Tilley LPN [employer] [address] TCM Nurse 12/03/23 01/01/24 documented as of this encounter
--- OUTSIDE RECORDS SUMMARY | 2024-02-03 15:08 | XMS_ITS | Encounter Summary ---
Author Organization Healthcare Address [address] [place] [address] Care Team Providers Care Auger Press Operator Name Role Phone Lisa Foote ESTEBAN Primary Care Provider Cally Tilley LPN Unavailable Unavailable Reason for Visit * Reason Comments Abdominal Pain Vomiting Diarrhea Encounter Details Date Type Department Care Team ([facility] st Contact Info) Description 12/16/2023 7:16 AM EDT - 12/16/2023 11:17 AM EDT Emergency [facility] Emergency Department [address] [place] [address] Pedro Tang MD [address] [place] [address] Epigastric pain (Primary Dx); Nausea vomiting and diarrhea Discharge Disposition: Home or Self Care Social [...] drink first t caleb in the morning (EYE-BED WORKER) to steady your nerves or to get [...] Sign Reading Time Taken Comments Blood Pressure 143/93 12/16/2023 10:57 AM EDT Pulse 76 12/16/2023 10:57 AM EDT Temperature 36.6 ??C (97.8 ??F) 12/16/2023 10:57 AM E DT Respiratory Rate 20 12/16/2023 10:57 AM EDT Oxygen Saturation 97% 12/16/2023 10:57 AM EDT Inhaled Oxygen Concentration - - Weight 94.8 kg (209 lb) 12/16/2023 7:44 AM EDT Height 165.1 cm (5' 5 ) 12/16/2023 7:44 AM EDT Body Mass Index 34.78 12/16/2023 7:44 AM [...] this encounter Discharge Instructions * Discharge Instructions* George Koch MD - 12/16/2023 10:47 AM EDT Please follow up with the primary care provider regarding this visit. Please also follow up with your logger driving horses regarding your abdominal pain. Please continue taking any home medications as prescribed. documented in this encounter Medications at Time [...] (six) hours if needed for pain. Under [place] law, monthly prescriptions (30 days) can be [...] pain. 30 tablet 4 01/22/20 24 pancrelipase, Qyw-Heiy-Svlj, (Creon) [id number] units capsule Take 2 capsules by mouth [...] nausea or vomiting. 21 tablet 4 01/31/20 senna (Senokot) 8.6 MG tablet Take 1 tablet (8.6 mg) by mouth every night. 7 tablet 4 01/22/20 24 documented as of this encounter Miscellaneous Notes * ED Provider Notes - George Koch MD - 12/16/2023 7:11 AM EDT - HPI Chief Complaint Patient presents with Abdominal Pain Vomiting Diarrhea HPI Lila Mcnally is a 37 y.o. female with PMHx of anxiety/depression, fibromyalgia, HTN, GERD, gastric erosions, nicotine dependence, obesity and prior gallstone pancreatitis s/p cholecystectomy who presents today for 3 day history of epigastric pain radiating around the left flank to the back. Pt p resented to [facility] ED at ~0500 this morning for the same symptoms and walked to ED for a second opinion. Prior workup included CMP, CBC, mag, lipase, lactate, and UA all of which were non-concerning. Upon chart review, the patient has had multiple CT scans of her abdomen/pelvis (last on 12/02/23),and MRCP (10/27/23) with no evidence of acute or chronic pancreatitis changes. She notes that her pain feels like her previous pancreatitis episodes. The pain is most significant in the epigastric region and radiates around the left flank to her back. She describes the pain as debilitating since 11PM last night. She endorses diarrhea (beginning last night) and vomiting (beginning 3 days ago). Shehas been unable to tolerate PO intake since last night. Pt endorses a hx of marijuana use 3x per month. She denies any other illicit drug use. Pt also denies fever/chills, chest pain, SOA, hematochezia, hematemesis, burning with urination, hematuria, and urinary frequency. Patient History Past Medical History: Diagnosis Date Anxiety Arthritis Depression Fibromyalgia Gastric erosions 04/19/2021 GERD (gastroesophageal reflux disease) Hypertension Intentional overdose ([facility]) 12/20/2021 Nicotine dependence Obesity Pancreatitis Past Surgical [...] too. Physical Exam ED Triage Vitals [12/16/23 0714] Temp Heart Rate Resp BP 36.6 ??C (97.9 ??F) 112 16 (!) 154/94 SpO2 Temp src Heart Rate Source Patient Position 99 % -- -- -- BP Location FiO2 (%) -- -- Physical Exam Vitals and nursing note reviewed. Constitutional: General: She is not in acute distress. Appearance: She is well-developed. HENT: Head: Normocephalic and atraumatic. Eyes: Conjunctiva/sclera: Conjunctivae normal. Cardiovascular: Rate and Rhythm: Normal rate and regular rhythm. Heart sounds: No murmur heard. Pulmonary: Effort: Pulmonary effort is normal. No respiratory distress. Breath sounds: Normal breath sounds. Abdominal: Palpations: Abdomen is soft. Tenderness: There is abdominal tenderness in the epigastric area. There is no right CVA tenderness or left CVA tenderness. Musculoskeletal: General: No swelling. Cervical back: Neck supple. Skin: General: Skin is warm and dry. Capillary Refill: Capillary refill takes less than 2 seconds. Neurological: Mental Status: She is alert. Psychiatric: Mood and Affect: Mood normal. [place] Coma Scale Score: 15 ED Course & MDM - Assessment: 37 y.o. female presents to ED with complaint of abdominal pain. It should be noted that the chronicconditions includes chronic pancreatitis, anxiety, depression, peptic ulcer disease, nicotine dependence, GERD, obesity, which currently is not at goal therapy. This complicates the clinical picture because it Comorbidities: may be exacerbating symptoms, increases the amount and complexity of data to be reviewed, complicates the clinical workup, and increases the risk for morbidity Differential Diagnosis: Acute exacerbation of chronic pancreatitis, peptic ulcer disease, renal stone, electrolyte abnormality, JYOTSNA, dehydration, UTI, pyelonephritis, choledocholithiasis In order to fully explore the differential diagnosis the following treatments and tests were ordered: ED Medication Administration from 12/16/2023 0711 to 12/16/2023 0838 Date/Time Order Dose Route Action 12/16/2023 0818 EDT diphenhydrAMINE (Benadryl) injection 25 mg 25 mg Intravenous Given 12/16/2023817 EDT HYDROmorphone (Dilaudid) injection 0.5 mg 0.5 mg Intravenous Given 12/16/2023817 EDT metoclopramide (Reglan) injection 10 mg 10 mg Intravenous Given All Other Orders Ordered Status Ordering Provider 12/16/23 0807 POCT creatinine PROCEDURE ONCE Final result PEDRO TANG 12/16/[address] Abdomen Pelvis w IV Contrast Once Acknowledged GEORGE KOCH S ED Course as of 12/16/23 1404 ThuDec 16, 2023 0733 Patient had labs including CBC, CMP, lactate, lipase, UA ran at [facility] this morning which were nonactionable. Will defer repeat laboratory evaluation at this time. [NW] 0751 Upon initial evaluation of the patient she is tearful and in obvious discomfort. She was complaining of the epigastric abdominal pain, nausea, vomiting. There is exquisite epigastric and left upper quadrant tenderness. Lipase from [facility] the ED this morning within normal limits, however the patient does suffer from chronic pancreatitis, therefore this value may be normalized even in the setting of acute exacerbation of her chronic pancreatitis. I will obtain a CT scan in order to evaluate for acute exacerbation of her pancreatitis. [NW] 1008 CT Abdomen Pelvis w IV Contrast CT abdomen and pelvis with IV contrast shows no signs of pancreatic inflammation indicative of pancreatitis or any other acute findings at this time. [NW] 1047 I treated the patient with 1 dose of oral oxycodone [NW] 1048 The patient was able to successfully drink water without vomiting. I informed the patient of the findings on CT and that she is not currently suffering from an acute exacerbation of her chronic pancreatitis and she expresses understanding and relief. She says that her symptoms have improved sin ce presentation administration of medications. They have instructed the patient to follow up with the primary care provider and with her logger driving horses. I have prescribed her Zofran. The patient has remained clinically and hemodynamically stable during her entire stay here in the emergency department. The patient is stable and appropriate for discharge. I had an interactive discussion with the patient regarding the plan and they express understanding and are agreeable with the plan. At thistime the patient is not in need of any further urgent or emergent intervention and is safe and appropriate for discharge. At this time all questions have been answered to the patient's satisfaction and all parties are agreeable to discharge. [NW] ED Course User Index [NW] George Koch MD Clinical Impressions as of 12/16/23 1404 Epigastric pain Nausea vomiting and diarrhea Social Determinates of Health Risks (including Economic Stability, Education and level of understanding, Healthcare access and quality and concerning social factors): None identified on this visit Ultimately, this patient was Was discharged Home (Discharge) The primary encounter diagnosis was Epigastric pain. A diagnosis of Nausea vomiting anddiarrhea was also pertinent to this visit. . Patient was counseled on the diagnoses. Discharge medications if any are listed below. Listed medications are thought be either curative for listed diagnoses or will help control ongoing symptoms. Patient is requested to follow up with Patient's Primary Care Provider and GI in order to obtain routine follow-up and specialty care. Instructions on followup as well as precautions to return to the ER provided verbally by the EM provider, as well as written in patients discharge education packet. ED Prescriptions None - George Koch MD Resident 12/16/23 1621 Cosigned by Pedro Tang MD at 12/20/2023 9:55 PM EDT Associated attestation - Pedro Tang MD - 12/20/2023 9:55 PM EDT I saw and evaluated the patient with the resident/fellow. I discussed the case with the resident/fellow and agree with the findings and plan as documented. * ED Triage Notes - Domi Pope RN - 12/16/2023 7:11 AM EDT Pt c/o abd pain with n/v/d x 4 days. Pt reports she just left [facility] ED and walked to [place] for a second opinion. documented in this encounter Plan of Treatment Not on file documented as of this encounter Procedures Procedure Name Priority Date/Time Associated Diagnosis Comments CT ABDOMEN PELVIS W IV CONTRAST STAT 12/16/2023 9:24 AM EDT POCT CREATININE ISTAT UNSOLICITED RESULTS Routine 12/16/2023 8:07 AM EDT documented in this encounter Results * CT Abdomen Pelvis w IV Contrast (12/16/2023 9:24 AM EDT) Anatomical Region Laterality Modality Abdomen, [...] Edgardo Roque MD on 12/16/2023 9:53 AM us Pedro Tang MD IMG CT PROCEDURES Final Res ult * POCT creatinine (12/16/2023 8:07 AM EDT) [facility] Creatinine, Point of Care 0.6 0.6 - 1.1 mg/dL 12/16/2023 8:09 AM EDT [facility] POCT eGFR 119 mL/min/1. 73m*2 12/16/2023 8:09 AM EDT [facility] Hydrogeologist ID Marybeth Horta 12/16/2023 8:09 AM EDT [facility] Device ID [id number] 12/16/2023 8:09 AM EDT [facility] Comment 12/16/2023 8:09 AM EDT [facility] Comment:Testing performed on i-STAT at the point of care. Reported eGFRcr in mL/min/1.73m2 is based the CKD-EPI 2020 equation that does not use a race coefficient. Blood Venous blood specimen / Unknown 12/16/2023 8:07 AM EDT 12/16/2023 8:09 AM EDT us Pedro Tang MD LAB POINT OF CARE T EST DOCKED DEVICE UNSOLICITED RESULTS Final Result [facility] [address] [facility] [address] [place] [address] documented in this encounter Visit Diagnoses Diagnosis Epigastric pain- Primary Abdominal pain, epigastric Nausea vomiting and diarrhea documented in this encounter Administered Medications Inactive Administered Medications - up to 3 most recent administrations Medication Order MAR Action Action Date Dose Rate Site diphenhydrAMINE (Benadryl) injection 25 mg 25 mg, Intravenous, Once, 1 dose, On Thu12/16/23 at 0810, Routine Given 12/16/2023 8:18 AM EDT 25 mg HYDROmorphone (Dilaudid) injection 0.5 mg 0.5 mg, Intravenous, Once, 1 dose, On Thu12/16/23 at 0755, STAT Given 12/16/2023 8:18 AM EDT 0.5 mg iohexol (OMNIPaque) 300 MG/ML injection 100 mL 100 mL, Intravenous, Once in imaging, 1 dose, Starting on Thu12/16/23 at 0809, Until Thu12/16/23 at 0920, Routine, Imaging Protocol Orders Given 12/16/2023 9:20 AM EDT 100 mL metoclopramide (Reglan) injection 10 mg 10 mg, Intravenous, Once, 1 dose, On Thu12/16/23 at 0810, STAT Given 12/16/2023 8:18 AM EDT 10 mg oxyCODONE (Roxicodone) immediate release tablet 5 mg 5 mg, Oral, Once, 1 dose, On Thu12/16/23 at 1050, STAT Given 12/16/2023 10:57 AM EDT 5 mg documented in this encounter Active and Recently Administered Medications Times are shown in EDT. Scheduled Medication Order 12/14/2023 12/15/2023 12/16/2023 diphenhydrAMINE (Benadryl) injection 25 mg (COMPLETED) 25 mg, Intravenous, Once, 1 dose, On Thu12/16/23 at 0810, Routine 0818 (Given - Provid er: Silvestre Medina RN) HYDROmorphone (Dilaudid) injection 0.5 mg (COMPLETED) 0.5 mg, Intravenous, Once, 1 dose, On Thu12/16/23 at 0755, STAT 0818 (Given - Provid er: Silvestre Medina, CHANDNI) iohexol (OMNIPaque) 300 MG/ML injection 100 mL (COMPLETED) 100 mL, Intravenous, Once in imaging, 1 dose, Starting on Thu12/16/23 at 0809, Until Thu12/16/23 at 0920, Routine, Imaging Protocol Orders 0920 (Given - Provid er: Shahzad Flowers) metoclopramide (Reglan) injection 10 mg (COMPLETED) 10 mg, Intravenous, Once, 1 dose, On Thu12/16/23 at 0810, STAT 0818 (Given - Provid er: Silvestre Medina, CHANDNI) oxyCODONE (Roxicodone) immediate release tablet 5 mg (COMPLETED) 5 mg, Oral, Once, 1 dose, On Thu12/16/23 at 1050, STAT 1057 (Given - Provid er: Silvestre Medina RN) documented in this encounter Additional Health Concerns Assessment Noted Time A fall risk assessment has been complete d for the patient 11/21/2020 2:30 PM EDT A Body Mass Index follow-up plan has been documented for the patient 10/28/2023 1:22 PM EDT documented as of this encounter Care Teams Auger Press Operator Relationship Specialty Start Date End Date Lisa Foote APRN [address] [place] [id number] PCP - General 10/23/23 Cally Tilley LPN VALUE-BASED [place] [address] TCM Nurse 12/03/23 01/01/24 documented as of this encounter
--- OUTSIDE RECORDS SUMMARY | 2024-02-03 15:08 | XMS_ITS | Encounter Summary ---
Author Organization Healthcare Address [address] [place] [address] Care Team Providers Care Braider Setter Name Role Phone Lisa Foote ESTEBAN Primary Care Provider Cally Tilley LPN Unavailable Unavailable Encounter Details Date Type Department Care Team (Late st Contact Info) Description 12/04/2023 Patient Outreach POPULATION [address] [phone] Cally Tilley LPN VALUE-[employer] [place] [address] Social History Tobacco Use Types Packs/Day Years [...] place to sleep or slept in a skilled nursing (including now)? No 10/27/2023 CAGE ASSESSMENT Answer [...] drink first t caleb in the morning (EYE-BIOLOGY INTERNSHIP) to steady your nerves or to get [...] Progress Notes - Cally Tilley LPN - 12/04/2023 1:22 PM EDT Call day #2 - No answer on mobile number listed. Left a message on voicemail with name, [facility], non urgent and call back number. documented in this [...] documented as of this encounter Care Teams Braider Setter Relationship Specialty Start Date End Date Lisa Foote APRN [address] [phone] PCP - General 10/23/23 Cally Tilley LPN VALUE[employer] [place] [address] TCM Nurse 12/03/23 01/01/24 documented as of this encounter
--- OUTSIDE RECORDS SUMMARY | 2024-02-03 15:08 | XMS_ITS | Encounter Summary ---
Author Organization [facility] Address [address] [place] [address] Care Team Providers Care General Surgeon Name Role Phone Lisa Foote ESTEBAN Primary Care Provider Cally Tilley LPN Unavailable Unavailable Reason for Visit * Reason Comments TCM Call Encounter Details Date Type Department Care Team ([facility] st Contact Info) Description 12/07/2023 Patient Outreach POPULATION [address] [phone] Cally Tilley LPN VALUE[employer] [place] [address] TCM Call Social History Tobacco Use Types [...] in a snf (including now)? No 10/27/2023 CAGE ASSESSMENT Answer [...] drink first t caleb in the morning (EYE-LAYER OFF) to steady your nerves or to get [...] Progress Notes - Cally Tilley LPN - 12/07/2023 11:57 AM EDT Call day #3 - ALONZO nurse attempted to reach patient x3 days regarding scheduling a hospital follow up appointment with PCP. No answer on mobile number listed, left a voicemail with return phone number. documented in this encounter Plan of [...] documented as of this encounter Care Teams General Surgeon Relationship Specialty Start Date End Date Lisa Foote APRN [address] [place], [place] [phone] PCP - General 10/23/23 Cally Tilley LPN [employer] [place] [address] TCM Nurse 12/03/23 01/01/24 documented as of this encounter
--- OUTSIDE RECORDS SUMMARY | 2024-02-03 15:09 | XMS_ITS | Encounter Summary ---
Author Organization [facility] Address [address] [place] [address] Care Team Providers Care Rehab Rn Name Role Phone Lisa Foote ESTEBAN Primary Care Provider Encounter Details Date Type Department Care Team (Latest Contact Info) Description 11/26/2023 Travel Social History Tobacco Use Types Packs/Day [...] place to sleep or slept in a fdc (including now)? No 10/27/2023 CAGE ASSESSMENT Answer [...] drink first t caleb in the morning (EYE-TOWNSHIP SUPERVISOR) to steady your nerves or to [...] documented as of this encounter Care Teams Rehab Rn Relationship Specialty Start Date End Date Lisa Foote APRN [address] [place] [address] PCP - General 10/23/23 documented as of this encounter
--- OUTSIDE RECORDS SUMMARY | 2024-02-03 15:09 | XMS_ITS | Encounter Summary ---
Author Organization Healthcare Address [address] [place] [address] Care Team Providers [facility] Consultant Name Role Phone Lisa Foote ESTEBAN Primary Care Provider Reason for Visit * Reason Comments Vomiting Encounter Details Date Type Department Care Team (Late st Contact Info) Description 11/08/2023 12:04 PM EDT - 11/08/2023 3:13 PM EDT Emergency [facility] Emergency Department [address] [place] [address] Left upper quadrant abdominal pain (Primary Dx) [...] place to sleep or slept in a residential (including now)? 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) to steady your nerves or to get [...] Sign Reading Time Taken Comments Blood Pressure 161/109 11/08/2023 3:12 PM EDT NCT notified RN of high BP Pulse 84 11/08/2023 3:12 PM EDT Temperature 36.7 ??C (98 ??F) 11/08/2023 3:1 2 PM EDT Respiratory Rate 17 11/08/2023 3:12 PM EDT Oxygen Saturation 100% 11/08/2023 3:1 2 PM EDT Inhaled Oxygen Concentration - - Weight 95.5 kg (210 lb 8.6 oz) 11/08/2023 12:01 PM EDT Height 165.1 cm (5' 5 ) 11/08/2023 12:0 1 PM EDT Body Mass Index 35.04 11/08/2023 12:01 PM EDT documented in this encounter Functional [...] this encounter Discharge Instructions * Discharge Instructions* Abigail Thompson APRN - 11/08/2023 2:59 PM EDT Follow-up outpatient with your primary care provider within 1 week. Any new or worsening symptoms please return to the emergency department. Take ondansetron as directed as needed for nausea and vomiting. documented in this encounter Medications at Time [...] questions if refills are denied. 100 tablet 10/28/2023 4 DULoxetine (Cymbalta) [address] capsule Take 1 capsule (60 mg) by mouth 1 (one) time each day. Do not crush or chew. 7 capsule 10/29/2023 4 lidocaine (Lidoderm) 5 % patch Apply 2 patches topically 1 (one) time each day at the same time over 12 hours. Remove & discard patch within 12 hours or as directed by MD. 14 patch 10/28/2023 4 naloxone (Narcan) 4 mg/0.1 mL nasal spray 1. Give 1 spray in nostril for no/slow breathing or cannot wake after opioid use 2. Call 911 3. Repeat in other nostril if symptoms continue 1 each 10/28/2023 4 ondansetron (Zofran) 4 MG tablet Take 1 tablet (4 mg) by mouth every 6 (six) hours if needed for nausea or vomiting. 20 tablet 11/08/2023 4 oxyCODONE (Roxicodone) 10 MG immediate release tablet Take 1 tablet (10 mg) by mouth every 4 (four) hours if needed for severe pain. 30 tablet 10/28/2023 4 pancrelipase, Dxl-Cqzs-Evdg, (Creon) 64667-[address] units capsule Take 2 capsules by mouth 3 (three) times a day with meals. 40 capsule 10/28/2023 4 polyethylene glycol (Miralax) 17 g packet Take 17 g by mouth 1 (one) time each day. 7 packet 10/29/2023 4 pregabalin (Lyrica) 200 MG capsule Take 1 capsule (200 mg) by mouth 2 (two) times a day. 10 capsule 10/28/2023 4 promethazine (Phenergan) 25 MG tablet Take 1 tablet (25 mg) by mouth every 8 (eight) hours if needed for nausea or vomiting. 21 tablet 10/13/2023 4 senna (Senokot) 8.6 MG tablet Take 1 tablet (8.6 mg) by mouth every night. 7 tablet 10/28/2023 4 documented as of this encounter Miscellaneous Notes * ED Provider Notes - Abigail Thompson APRN - 11/08/2023 11:54 AM EDT Images from the original note were not included. - HPI Chief Complaint Patient presents with Vomiting Lila Mcnally is a 37 y.o. female PMH chronic pancreatitis, GERD, depression, fibromyalgia who presents to the Emergency Department with complaints of LUQ abdominal pain that started 2 days ago. She has had nausea and vomiting but this morning able to keep down a dose of promethazine and her Carafate but continues to have pain to left upper quadrant area. She denies any recent fevers or chills, headache, chest pain, shortness of breath, cough, hematemesis, dysuria symptoms. 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 by: Patient Patient History Past Medical History: Diagnosis Date Anxiety Arthritis Depression Fibromyalgia Gastric erosions 04/19/2021 GERD (gastroesophageal reflux disease) Hypertension Intentional overdose ([facility]) 12/20/2021 Nicotine dependence Obesity Pancreatitis [...] attacks too. Physical Exam ED Triage Vitals [11/08/23 1201] Temp Heart Rate Resp BP 36.8 ??C (98.2 ??F) 101 18 (!) 172/102 SpO2 Temp Source Heart Rate Source Patient Position 100 % Oral -- Sitting BP Location FiO2 (%) Right arm -- Physical Exam Vitals and nursing note reviewed. Constitutional: General: She is not in acute distress. Appearance: Normal appearance. HENT: Head: Normocephalic. Right Ear: External ear normal. Left Ear: External ear normal. Nose: Nose normal. No rhinorrhea. Mouth/Throat: Mouth: Mucous membranes are moist. Eyes: Extraocular Movements: Extraocular movements intact. Conjunctiva/sclera: Conjunctivae normal. Cardiovascular: Rate and Rhythm: Normal rate and regular rhythm. Pulmonary: Effort: Pulmonary effort is normal. No respiratory distress. Breath sounds: Normal breath sounds. Abdominal: General: Abdomen is flat. There is no distension. Palpations: Abdomen is soft. Tenderness: There is abdominal tenderness. Musculoskeletal: General: No deformity. Normal range of motion. Cervical back: Normal range of motion and neck supple. Skin: General: Skin is warm and dry. Coloration: Skin is not jaundiced or pale. Neurological: General: No focal deficit present. Mental Status: She is alert and oriented to person, place, and time. Psychiatric: Mood and Affect: Mood normal. Behavior: Behavior normal. [place] Coma Scale Score: 15 ED Course & MDM - Assessment: 37 y.o. female presents to ED with complaint of LUQ abdominal pain with N/V. It should be noted that the chronic conditions includes chronic abdominal pain, which currently is not at goal therapy. This complicates the clinical picture because it Comorbidities: may be exacerbating symptoms Differential Diagnosis: Pancreatitis, gastritis, PUD In order to fully explore the differential diagnosis the following treatments and tests were ordered: ED Medication Administration from 11/08/2023 1153 to 11/08/2023 1735 Date/Time Order Dose Route Action 11/08/2023 1235 EDT lactated Ringer's infusion 1,000 mL 1,000 mL Intravenous New Bag 11/08/2023 1236 EDT morphine PF 4 mg 4 mg Intravenous Given 11/08/2023 1236 EDT ondansetron (Zofran) injection 4 mg 4 mg Intravenous Given 11/08/2023 1344 EDT oxyCODONE (Roxicodone) immediate release tablet 10 mg 10 mg Oral Given 11/08/2023 1500 EDT lactated Ringer's infusion 1,000 mL 0 mL Intravenous Stopped 11/08/2023 1502 EDT oxyCODONE (Roxicodone) immediate release tablet 5 mg 5 mg Oral Given All Other Orders Ordered Status Ordering Provider 11/08/23 1433 Benzodiazepine Confirm Urine Once In process ABIGAIL THOMPSON 11/08/23 1433 THC Urine Confirm LCMSMS Once In process ABIGAIL THOMPSON 11/08/23 1433 Opiates Confirm Urine Once In process ABIGAIL THOMPSON 11/08/23 1218 CMP STAT Final result ABIGAIL THOMPSON 11/08/23 1218 Lipase STAT Final result ABIGAIL THOMPSON 11/08/23 1218 Lactic acid, venous STAT Final result ABIGAIL THOMPSON 11/08/23 1218 Ethyl Alcohol Plasma STAT Final result ABIGAIL THOMPSON 11/08/23 1218 hCG qualitative STAT Final result ABIGAIL THOMPSON 11/08/23 1218 CBC w/diff STAT Final result ABIGAIL THOMPSON 11/08/23 1218 Drug abuse screen STAT Final result ABIGAIL THOMPSON 11/08/23 1218 Insert peripheral IV Once Completed ABIGAIL THOMPSON ED Course as of 11/08/23 1735 Sun Nov 08, 2023 1339 Hemoglobin(!): 10.8 Previously 10.0 [JS] 1502 WBC: 7.69 No leukocytosis [JS] 1502 Lipase WNL [JS] 1503 Lactic acid, venous Received one liter IV fluids [JS] ED Course User Index [JS] Abigail Thompson, TETRYL BLENDER OPERATOR Clinical Impressions as of 11/08/23 1735 Left upper quadrant abdominal pain Social Determinates of Health Risks (including Economic Stability, Education and level of understanding, Healthcare access and quality and concerning social factors): Poor social support I discussed with patient that after review of her chart with previous ED visit and outpatient follow-up with PCP that she will need to follow-up with pain management for narcotic pain medication. Shestates her PCP is no longer prescribing narcotics for her that she was supposed to get a pain pump but that got placed on hold. Had a lengthy discussion with her regarding pain management for chronicabdominal pain, she was given morphine 4 mg IV x1 dose in the ED, oxycodone 10 mg by mouth, she is tolerating oral fluids without any emesis in the ED and states she is feeling some better. At discharge she was given additional dose of oxycodone 5 mg tablet by mouth and states abdominal pain has improved. We reviewed previous imaging including MRCP from 2 weeks ago showing no acute findings regarding her pancreas. Today lipase was not elevated, lactate was not elevated. She is agreeable to discharge home with outpatient follow-up with PCP. Ultimately, this patient was Was discharged Home (Discharge) The encounter diagnosis was Left upper quadrant abdominal pain. . Patient was counseledon the diagnoses. Discharge medications if any are listed below. Listed medications are thought be either curative for listed diagnoses or will help control ongoing symptoms. Patient is requested to follow up with Patient's Primary Care Provider in order to obtain routine follow-up. Instructions onfollow up as well as precautions to return to the ER provided verbally by the EM provider, as well as written in patients discharge education packet. ED Prescriptions Medication Sig Dispense Start Date End Date Auth. Provider ondansetron (Zofran) 4 MG tablet Take 1 tablet (4 mg) by mouth every 6 (six) hours if needed for nausea or vomiting. 20 tablet 11/08/2023 -- Abigail Thompson APRN Discharge Instructions Follow-up outpatient with your primary care provider within 1 week. Any new or worsening symptoms please return to the emergency department. Take ondansetron as directed as needed for nausea and vomiting. Disposition Discharge AVS (Printed 11/08/2023) Follow-Ups: Follow up with Lisa Foote APRN in 1 week (11/15/2023) - Abigail Thompson APRN 11/08/23 6529 Cosigned by Sergey Penny DO at 11/09/2023 4:50 PM EDT Associated attestation - Sergey Penny DO - 11/09/2023 4:50 PM EDT The patient was seen only by Advanced Practice Provider (AJAY), and care was reviewed with me. * ED Triage Notes - Gela Joseph RN - 11/08/2023 11:54 AM EDT Pt states she was at [facility], [place] 2 weeks ago and got an abdominal MRI which showed ulcers. 2 days ago she started having worse abdominal pain in LUQ and was up all night last night throwing up.At 5 AM today she took a phenergan but says she hasn't been able to keep anything else down. documented in this encounter Plan of Treatment Not on file documented as of this encounter Procedures Procedure Name Priority Date/Time Associated Diagnosis Comments OPIATES, LCMSMS, URINE STAT 2:10 PM EDT DRUG ABUSE SCREEN, URINE STAT 11/08/2023 2:10 PM EDT THC URINE CONFIRM STAT 11/08/2023 2:1 0 PM EDT BENZODIAZEPINE, URINE, QUANTITATIVE STAT 11/08/2023 2:10 PM EDT LACTATE, VENOUS STAT 11/08/2023 12:35 PM EDT ETHYL ALCOHOL PLASMA STAT 11/08/2023 12:35 PM EDT CBC WITH AUTO DIFFERENTIAL STAT 11/08/2023 12:35 PM EDT TEST QUALITATIVE PLASMA STAT 11/08/2023 12:35 PM EDT LIPASE, PLASMA STAT 11/08/2023 12:35 PM EDT COMPREHENSIVE METABOLIC PANEL, PLASMA STAT 11/08/2023 12:35 PM EDT documented in this encounter Results * (ABNORMAL) Opiates Confirm Urine (11/08/2023 2:10 PM EDT) Codeine <50 <50 ng/mL 11/10/2023 4:58 PM EDT [facility] Codeine Glucuronide <50 <50 ng/mL 11/10/2023 4:58 PM EDT [facility] Desmethyl Tramadol <50 <50 ng/mL 11/10/2023 4:58 PM EDT [facility] EDDP - Methadone Metabolite <50 <50 ng/mL 11/10/2023 4:58 PM EDT [facility] Hydrocodone <50 <50 ng/mL 11/10/2023 4:58 PM EDT [facility] Hydromorphone <50 <50 ng/mL 11/10/2023 4:58 PM EDT [facility] Hydromorphone Glucuronide <50 <50 ng/mL 11/10/2023 4:58 PM EDT [facility] Comment:Metabolite of Hydrom orphone Meperidine <50 <50 ng/mL 11/10/2023 4:58 PM EDT [facility] Methadone <50 <50 ng/mL 11/10/2023 4:58 PM EDT [facility] 6 Monoacetyl morphine <10 <10 ng/mL 11/10/2023 4:58 PM EDT [facility] Morphine 402(H) <50 ng/mL 11/10/2023 4:58 PM EDT [facility] Morphine Glucuronide >1,000(H) <50 ng/mL 11/10/2023 4:58 PM EDT [facility] Comment:Metabolite of Morphi ne Naloxone <50 <50 ng/mL 11/10/2023 4:58 PM EDT [facility] Naloxone Glucuronide <50 <50 ng/mL 11/10/2023 4:58 PM EDT [facility] Comment:Metabolite of Naloxo ne Normeperidine <50 <50 ng/mL 11/10/2023 4:58 PM EDT [facility] Tramadol <50 <50 ng/mL 11/10/2023 4:58 PM EDT [facility] Urine Urine specimen obtained by clean catch procedure / Unknown Non-blood Collection / Unknown 11/08/2023 2:10 PM EDT 11/08/2023 2:15 PM EDT Narrative [facility] - 11/10/2023 4:58 PM EDT Drug analysis is confirmed by LC-MS/MS (LC Tandem Mass Spectrometry) on Urine specimens. ?? This test was developed and its performance characteristics determined by [facility]. It has not been cleared or approved by the FDA. The laboratory is regulated under CLIA as qualified to perform high-complexity testing. This test is used for clinical purposes. Testing is performed at the [facility]. us Abigail Thompson APRN LAB URINE ORDERABLES Final Result [facility] [address] [place] [address] * THC Urine Confirm LCMSMS (11/08/2023 2:10 PM EDT) 9 Carboxy THC <10 <10 ng/mL 11/10/2023 4:58 PM EDT [facility] 9 Carboxy THC Glucuronide <25 <25 ng/mL 11/10/2023 4:58 PM EDT [facility] Urine Urine specimen obtained by clean catch procedure / Unknown Non-blood Collection / Unknown 11/08/2023 2:10 PM EDT 11/08/2023 2:15 PM EDT Narrative [facility] - 11/10/2023 4:58 PM EDT Drug analysis is confirmed by LC-MS/MS (LC Tandem Mass Spectrometry) on Urine specimens. ?? This test was developed and its performance characteristics determined by [facility]. It has not been cleared or approved by the FDA. The laboratory is regulated under CLIA as qualified to perform high-complexity testing. This test is used for clinical purposes. Testing is performed at the [facility]. Abigail Thompson APRN LAB URINE ORDERABLES Final Result [facility] [address] [place] [address] * (ABNORMAL) Benzodiazepine Confirm Urine (11/08/2023 2:10 PM EDT) Alpha [place] Alprazolam <20 <20 ng/mL 11/09 4:58 PM EDT [facility] Alpha [place] Midazolam <20 <20 ng/mL 2023 4:58 PM EDT [facility] Alpha [place] Triazolam <20 <20 ng/mL 2023 4:58 PM EDT [facility] Alprazolam <10 <10 ng/mL 11/10/2023 4:58 PM EDT [facility] Aminoclonazepam 222(H) <20 ng/mL 4:58 PM EDT [facility] Clonazepam <10 <10 ng/mL 11/10/2023 4:58 PM EDT [facility] Diazepam <10 <10 ng/mL 11/10/2023 4:58 PM EDT [facility] Lorazepam <20 <20 ng/mL 11/10/2023 4:58 PM EDT [facility] Lorazepam Glucuronide <50 <50 ng/mL 11/10/2023 4:58 PM EDT [facility] Midazolam 11/10/2023 4:58 PM EDT [facility] Nordiazepam <20 <20 ng/mL 11/10/2023 4:58 PM EDT [facility] Oxazepam <20 <20 ng/mL 11/10/2023 4:58 PM EDT [facility] Oxazepam Glucuronide <50 <50 ng/mL 11/10/2023 4:58 PM EDT [facility] Temazepam <20 <20 ng/mL 11/10/2023 4:58 PM EDT [facility] Temazepam Glucuronide 105(H) <50 ng/mL 11/10/2023 4:58 PM EDT [facility] Triazolam 11/10/2023 4:58 PM EDT [facility] Urine Urine specimen obtained by clean catch procedure / Unknown Non-blood Collection / Unknown 11/08/2023 2:10 PM EDT 11/08/2023 2:15 PM EDT Narrative [facility] - 11/10/2023 4:58 PM EDT Drug analysis is confirmed by LC-MS/MS (LC Tandem Mass Spectrometry) on Urine specimens. ?? This test was developed and its performance characteristics determined by [facility]. It has not been cleared or approved by the FDA. The laboratory is regulated under CLIA as qualified to perform high-complexity testing. This test is used for clinical purposes. Testing is performed at the [facility]. us Abigail Thompson APRN LAB URINE ORDERABLES Final Result [facility] [address] [place] [address] * Drug abuse screen (11/08/2023 2:10 PM EDT) [facility] Amphetamine Screen Urine Negative Cutoff: 500 ng/mL 11/08/2023 2:36 PM EDT [facility] Benzodiazepines Screen Urine Presumptive positive. Confirmation by LC-MS/MS to follow. Cutoff: 200 ng/mL 11/08/2023 2:36 PM EDT [facility] Cannabinoid Screen Urine Presumptive positive. Confirmation by LC-MS/MS to follow. Cutoff: 50 ng/mL 11/08/2023 2:36 PM EDT [facility] Cocaine Screen Urine Negative Cutoff: 300 ng/mL 11/08/2023 2:36 PM EDT [facility] Barbiturate Screen Urine Negative Cutoff: 200 ng/mL 11/08/2023 2:36 PM EDT [facility] Opiate Screen Urine Presumptive positive. Confirmation by LC-MS/MS to follow. Cutoff: 300 ng/mL 11/08/2023 2:36 PM EDT [facility] Methadone Screen Urine Negative Cutoff: 300 ng/mL 11/08/2023 2:36 PM EDT [facility] Buprenorphine Screen Urine Negative Cutoff: 10 ng/mL 11/08/2023 2:36 PM EDT [facility] Fentanyl Screen Urine Negative Cutoff: 1 ng/mL 11/08/2023 2:36 PM EDT [facility] Oxycodone Screen Urine Negative Cutoff: 100 ng/mL 11/08/2023 2:36 PM EDT [facility] Urine Urine specimen obtained by clean catch procedure / Unknown Non-blood Collection / Unknown 11/08/2023 2:10 PM EDT 11/08/2023 2:15 PM EDT Abigail Thompson TETRYL BLENDER OPERATOR LAB URINE ORDERABLES Final Result [facility] [address] [place] [id number] * (ABNORMAL) CBC w/diff (11/08/2023 12:35 PM EDT) [facility] WBC Count 7.69 3.70 - 10.30 10*3/uL LAB HEMATOLOGY METHOD 11/08/2023 12:44 PM EDT [facility] RBC Count 4.31 3.90 - 5.20 10*6/uL LAB HEMATOLOGY METHOD 11/08/2023 12:44 PM EDT [facility] HGB 10.8(L) 11.2 - 15.7 g/dL LAB HEMATOLOGY METHOD 11/08/2023 12:44 PM EDT [facility] HCT 35.2 34.0 - 45.0 % LAB HEMATOLOGY METHOD 11/08/2023 12:44 PM EDT [facility] Platelet Count 163 155 - 369 10*3/uL LAB HEMATOLOGY METHOD 11/08/2023 12:44 PM EDT [facility] MCV 82 79 - 98 fL LAB HEMATOLOGY METHOD 11/08/2023 12:44 PM EDT [facility] MCH 25.1(L) 26.0 - 32.0 pg LAB HEMATOLOGY METHOD 11/08/2023 12:44 PM EDT [facility] MCHC 30.7 30.7 - 35.5 g/dL LAB HEMATOLOGY METHOD 11/08/2023 12:44 PM EDT [facility] RDW 17.1(H) 11.5 - 14.5 % LAB HEMATOLOGY METHOD 11/08/2023 12:44 PM EDT [facility] MPV 10.0 8.8 - 12.5 fL LAB HEMATOLOGY METHOD 11/08/2023 12:44 PM EDT [facility] nRBC 0.0 <=0.0 per 100 WBCs LAB HEMATOLOGY METHOD 11/08/2023 12:44 PM EDT [facility] Differential Type Automated LAB HEMATOLOGY METHOD 11/08/2023 12:44 PM EDT [facility] Neutrophils % 63.0 % LAB HEMATOLOGY METHOD 11/08/2023 12:44 PM EDT [facility] Lymphocytes % 28.0 % LAB HEMATOLOGY METHOD 11/08/2023 12:44 PM EDT [facility] Monocytes % 4.0 % LAB HEMATOLOGY METHOD 11/08/2023 12:44 PM EDT [facility] Eosinophils % 3.0 % LAB HEMATOLOGY METHOD 11/08/2023 12:44 PM EDT [facility] Basophils % 1.0 % LAB HEMATOLOGY METHOD 11/08/2023 12:44 PM EDT [facility] Immature Granulocytes % 1.0 % LAB HEMATOLOGY METHOD 11/08/2023 12:44 PM EDT [facility] Neutrophils Absolute 4.96 1.60 - 6.10 10*3/uL LAB HEMATOLOGY METHOD 11/08/2023 12:44 PM EDT [facility] Lymphocytes Absolute 2.13 1.20 - 3.90 10*3/uL LAB HEMATOLOGY METHOD 11/08/2023 12:44 PM EDT [facility] Monocytes Absolute 0.28(L) 0.30 - 0.90 10*3/uL LAB HEMATOLOGY METHOD 11/08/2023 12:44 PM EDT [facility] Eosinophils Absolute 0.20 0.00 - 0.50 10*3/uL LAB HEMATOLOGY METHOD 11/08/2023 12:44 PM EDT [facility] Basophils Absolute 0.07 0.00 - 0.10 10*3/uL LAB HEMATOLOGY METHOD 11/08/2023 12:44 PM EDT [facility] Immature Granulocytes Absolute 0.05 0.00 - 0.06 10*3/uL LAB HEMATOLOGY METHOD 11/08/2023 12:44 PM EDT [facility] Blood Venous blood specimen / Unknown Venipuncture / Unknown 11/08/2023 12:35 PM EDT 11/08/2023 12:41 PM EDT Narrative [facility] - 11/08/2023 12:44 PM EDT Therapeutic decision making should be based on absolute values, rather than percentages. Abigail Thompson APRN LAB BLOOD ORDERABLES Final Result Performing Organization Address City/[facility]/ZIP Co de Phone Number [facility] [address] [place] [address] * hCG qualitative (11/08/2023 12:35 PM EDT) Test Negative Negative 11/08/2023 1:04 PM EDT [facility] Blood Venous blood specimen / Unknown Venipuncture / Unknown 11/08/2023 12:35 PM EDT 11/08/2023 12:41 PM EDT Narrative [facility] - 11/08/2023 1:04 PM EDT Reference Range: Males and non- females: Negative. Abigail Thompson APRN LAB BLOOD ORDERABLES Final Result [facility] [address] [place] [address] * Ethyl Alcohol Plasma (11/08/2023 12:35 PM EDT) Ethanol Plasma <10 <10 mg/dL 11/08/2023 1:02 PM EDT [facility] Blood Venous blood specimen / Unknown Venipuncture / Unknown 11/08/2023 12:35 PM EDT 11/08/2023 12:41 PM EDT Narrative [facility] - 11/08/2023 1:02 PM EDT Enzymatic Assay: Performed on [employer]. Abigail Thompson APRN LAB BLOOD ORDERABLES Final Result Performing Organization Address City/[facility]/ZIP Co de Phone Number [facility] [address] [place] [address] * Lactic acid, venous (11/08/2023 12:35 PM EDT) [facility] Lactate, Venous, Whole Blood 1.9 0.5 - 2.2 mmol/L LAB HEMATOLOGY METHOD 11/08/2023 12:43 PM EDT [facility] Blood Venous blood specimen / Unknown Venipuncture / Unknown 11/08/2023 12:35 PM EDT 11/08/2023 12:41 PM EDT Abigail Thompson [facility] LAB BLOOD ORDERABLES Final Result Performing Organization Address City/[facility] Co de Phone Number [facility] [address] [place] [address] * Lipase (11/08/2023 12:35 PM EDT) [facility] Lipase, Plasma 53 19 - 63 U/L 11/08/2023 1:04 PM EDT [facility] Blood Venous blood specimen / Unknown Venipuncture / Unknown 11/08/2023 12:35 PM EDT 11/08/2023 12:41 PM EDT Abigail Thompson [facility] BLOOD ORDERABLES Final Result Performing Organization Address City/[facility] Co de Phone Number [facility] [address] [place] [address] * (ABNORMAL) CMP (11/08/2023 12:35 PM EDT) [facility] Glucose, Plasma 91 74 - 99 mg/dL 11/08/2023 1:04 PM EDT [facility] BUN, Plasma 14 7 - 21 mg/dL 11/08/2023 1:04 PM EDT [facility] [facility] Creatinine, Plasma 0.50(L) 0.60 - 1.10 mg/dL 11/08/2023 1:04 PM EDT [facility] BUN/Creatinine Ratio 28 11/08/2023 1:04 PM EDT [facility] Sodium, Plasma 139 136 - 145 mmol/L 11/08/2023 1:04 PM EDT [facility] Potassium, Plasma 4.1 3.6 - 4.9 mmol/L 11/08/2023 1:04 PM EDT [facility] Chloride, Plasma 106 97 - 107 mmol/L 11/08/2023 1:04 PM EDT [facility] CO2, Plasma 22 22 - 29 mmol/L 11/08/2023 1:04 PM EDT [facility] Anion Gap 11 6 - 16 mmol/L 11/08/2023 1:04 PM EDT [facility] Total Calcium, Plasma 9.3 8.9 - 10.2 mg/dL 11/08/2023 1:04 PM EDT [facility] Total Protein 6.4 6.3 - 7.9 g/dL 11/08/2023 1:04 PM EDT [facility] Albumin, Plasma 3.9 3.5 - 5.2 g/dL 11/08/2023 1:04 PM EDT [facility] AST, Plasma 12 10 - 35 U/L 11/08/2023 1:04 PM EDT [facility] ALT, Plasma 15 10 - 35 U/L 11/08/2023 1:04 PM EDT [facility] Alkaline Phosphatase, Plasma 82 35 - 104 U/L 11/08/2023 1:04 PM EDT [facility] Total Bilirubin, Plasma 0.2 0.2 - 1.1 mg/dL 11/08/2023 1:04 PM EDT [facility] eGFRcr 124.8 mL/min/1.7 3m*2 11/08/2023 1:04 PM EDT [facility] Comment:Reported eGFRcr in m L/min/1.73m2 is based the CKD-EPI 2020 equation that does not use a race coefficient. Blood Venous blood specimen / Unknown Venipuncture / Unknown 11/08/2023 12:35 PM EDT 11/08/2023 12:41 PM EDT Abigail Thompson APRN LAB BLOOD ORDERABLES Final Result [facility] [address] [place] [address] documented in this encounter Visit Diagnoses Diagnosis Left upper quadrant abdominal pain- Primary documented in this encounter Administered Medications Inactive Administered Medications - up to 3 most recent administrations Medication Order MAR Action Action Date Dose Rate Site lactated Ringer's infusion 1,000 mL 1,000 mL, Intravenous, Once (Bolus), 1 dose, On 11/08/23 at 1220, STAT New Bag 11/08/2023 12:35 PM EDT 1,000 mL morphine PF 4 mg 4 mg, Intravenous, Once, 1 dose, On 11/08/23 at 1220, STAT Given 11/08/2023 12:36 PM EDT 4 mg ondansetron (Zofran) injection 4 mg 4 mg, Intravenous, Once, 1 dose, On 11/08/23 at 1220, STAT Given 11/08/2023 12:36 PM EDT 4 mg oxyCODONE (Roxicodone) immediate release tablet 10 mg 10 mg, Oral, Once, 1 dose, On 11/08/23 at 1340, STAT Given 11/08/2023 1:44 PM EDT 10 mg oxyCODONE (Roxicodone) immediate release tablet 5 mg 5 mg, Oral, Once, 1 dose, On 11/08/23 at 1455, STAT Given 11/08/2023 3:02 PM EDT 5 mg documented in this encounter Active and Recently Administered Medications Times are shown in EDT. Scheduled Medication Order 11/06/2023 11/07/2023 11/08/2023 lactated Ringer's infusion 1,000 mL (COMPLETED) 1,000 mL, Intravenous, Once (Bolus), 1 dose, On 11/08/23 at 1220, STAT 1235 (New Bag - Prov ider: George Guaman)1500 (Stopped - Provider: George Guaman) morphine PF 4 mg (COMPLETED) 4 mg, Intravenous, Once, 1 dose, On 11/08/23 at 1220, STAT 1236 (Given - Provid er: George Guaman) ondansetron (Zofran) injection 4 mg (COMPLETED) 4 mg, Intravenous, Once, 1 dose, On 11/08/23 at 1220, STAT 1236 (Given - Provid er: George Guaman) oxyCODONE (Roxicodone) immediate release tablet 10 mg (COMPLETED) 10 mg, Oral, Once, 1 dose, On 11/08/23 at 1340, STAT 1344 (Given - Provid er: George Guaman) oxyCODONE (Roxicodone) immediate release tablet 5 mg (COMPLETED) 5 mg, Oral, Once, 1 dose, On 11/08/23 at 1455, STAT 1502 (Given - Provid er: George Guaman) documented in this encounter Additional Health Concerns Assessment Noted Time A fall risk assessment has been complete d for the patient 11/21/2020 2:30 PM EDT A Body Mass Index follow-up plan has been documented for the patient 10/28/2023 1:22 PM EDT documented as of this encounter Care Teams Healthcare Network Consultant Relationship Specialty Start Date End Date Lisa Foote APRN [address] [place], [place] [id number] PCP - General 10/23/23 documented as of this encounter
--- OUTSIDE RECORDS SUMMARY | 2024-02-03 15:09 | XMS_ITS | Encounter Summary ---
Author Organization [facility] Address [address] [place] [address] Care Team Providers Care Regulatory Affairs Consultant Name Role Phone Lisa Foote ESTEBAN Primary Care Provider Encounter Details Date Type Department Care Team (Latest Contact Info) Description 11/28/2023 Travel Social History Tobacco Use Types Packs/Day [...] drink first t caleb in the morning (EYE-FOAM RUBBER CURER) to steady your nerves or to get [...] documented as of this encounter Care Teams Regulatory Affairs Consultant Relationship Specialty Start Date End Date Lisa Foote APRN [address] [place] [address] PCP - General 10/23/23 documented as of this encounter
--- OUTSIDE RECORDS SUMMARY | 2024-02-03 15:09 | XMS_ITS | Encounter Summary ---
Author Organization Healthcare Address [address] [place] [address] Care Team Providers Care Film Editor Name Role Phone Lisa Foote ESTEBAN Primary Care Provider [phone] Reason for Visit * Reason Comments Other External PCP Encounter Details Date Type Department Care Team ([facility] st Contact Info) Description 10/29/2023 Patient Outreach POPULATION [address] [address] Cally Tilley LPN [employer] [place] [address] Other (External PCP) Social History Tobacco Use Types Packs/Day Years [...] drink first t caleb in the morning (EYE-WATER TREATMENT TECHNICIAN) to steady your nerves or to get [...] Progress Notes - Cally Tilley LPN - 10/29/2023 11:06 AM EDT Admission Date: 10/23/2023 Discharge Date: 10/28/2023 Hospital Service: Hospital Medicine Discharge Diagnosis: Abdominal pain, epigastric ----- Call day #1 - No answer, left a VM. Call day #2 - No answer, left a VM. Call day #3 - Attempted x3 days to reach patient by phone regarding scheduling a hospital follow upappointment with external PCP. Lila Mcnally is a 37 y.o. female with a relevant PMH of recurrent acute pancreatitis, gastric erosions, cholecystecomy in 2012, fibromyalgia, and GERD who presents with abdominal pain, nausea, and vomiting. Post Discharge Instructions - Avoid acidic and spicy foods and NSAIDs - Follow-up with primary care physician in one week - Follow-up with referrals for GI physician and pain clinic documented in this encounter Plan of Treatment [...] documented as of this encounter Care Teams Film Editor Relationship Specialty Start Date End Date Lisa Foote APRN [address] [place], [place] [phone] PCP - General 10/23/23 documented as of this encounter
--- OUTSIDE RECORDS SUMMARY | 2024-02-03 15:09 | XMS_ITS | Encounter Summary ---
Author Organization Healthcare Address [address] [place] [address] Care Team Providers Care Environmental Web Crawler Name Role Phone Lisa Foote ESTEBAN Primary Care Provider Reason for Visit * Reason Comments Abdominal Pain Encounter Details Date Type Department Care Team (Late st Contact Info) Description 11/26/2023 8:21 AM EDT - 11/26/2023 11:20 AM EDT Emergency [facility] [address] [place] [address] Tony Stone MD [address] [place] [address] Generalized abdominal pain (Primary Dx) Discharge Disposition: [...] drink first t caleb in the morning (EYE-HOTEL ASSOCIATE) to steady your nerves or to get [...] Sign Reading Time Taken Comments Blood Pressure 149/101 11/26/2023 8:19 AM EDT Pulse 92 11/26/2023 8:19 AM EDT Temperature 36.7 ??C (98 ??F) 11/26/2023 8:19 AM EDT Respiratory Rate 18 11/26/2023 8:19 AM EDT Oxygen Saturation 100% 11/26/2023 8:19 AM EDT Inhaled Oxygen Concentration - - Weight 92.1 kg (203 lb 0.7 oz) 11/26/2023 8:19 A M EDT Height 165.1 cm (5' 5 ) 11/26/2023 8:19 AM EDT Body Mass Index 33.79 11/26/2023 8:19 AM EDT documented in this encounter Functional [...] of Assessment Author No 04/14/2023 2:20 PM EST Tonya, Laureen R, RN documented as of this encounter Mental [...] severe pain. 30 tablet 10/28/2023 4 pancrelipase, [id number], (Creon) [id number] units capsule Take 2 capsules by mouth [...] Miscellaneous Notes * ED Provider Notes - Tony Stone MD - 11/26/2023 8:08 AM EDT Images from the original note were not included. - HPI Chief Complaint Patient presents with Abdominal Pain Lila Mcnally is a 37 y.o. female with a past medical history significant for chronic pancreatitis, GERD, depression, fibromyalgia who presents today from home with abdominal pain. Pt c/o sudden onset LUQ abdominal pain described as sharp/stabbing. States pain woke her from sleep early this morning. States she ate a cheeseburger 2 days ago but otherwise reports no abnormal food or drinks. TookIBU/tylenol, Carafate, and pantoprazole this morning. C/o nausea with no vomiting. 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 by: Patient bufferer used: No Patient History Past Medical History: Diagnosis Date Anxiety Arthritis Depression Fibromyalgia Gastric erosions 04/19/2021 GERD (gastroesophageal reflux disease) Hypertension Intentional overdose ([facility]/HCC) 12/20/2021 Nicotine dependence Obesity Pancreatitis Past Surgical [...] attacks too. Physical Exam ED Triage Vitals [11/26/23 0819] Temp Heart Rate Resp BP 36.7 ??C (98 ??F) 92 18 (!) 149/101 SpO2 Temp Source Heart Rate Source Patient Position 100 % Oral -- Sitting BP Location FiO2 (%) -- -- Physical Exam Vitals and nursing note reviewed. Constitutional: General: She is not in acute distress. Appearance: Normal appearance. HENT: Head: Normocephalic and atraumatic. Nose: No rhinorrhea. Mouth/Throat: Mouth: Mucous membranes are moist. Pharynx: Oropharynx is clear. Eyes: General: Right eye: No discharge. Left eye: No discharge. Conjunctiva/sclera: Conjunctivae normal. Pupils: Pupils are equal, round, and reactive to light. Cardiovascular: Rate and Rhythm: Normal rate. Pulmonary: Effort: Pulmonary effort is normal. No respiratory distress. Breath sounds: No stridor. Musculoskeletal: General: Normal range of motion. Cervical back: No rigidity. Skin: General: Skin is warm and dry. Neurological: Mental Status: She is alert and oriented to person, place, and time. Psychiatric: Mood and Affect: Mood normal. Behavior: Behavior normal. Jo Coma Scale Score: 15 ED Course & MDM Date/Time: 11/26/2023/11:01 AM Scribe Attestation: This note was dictated to me, Lizzie Reynoso, acting as a scribe for Tony Howard MD. Attending Attestation: The documentation was recorded by Lizzie Reynoso acting as scribe in my presence at the time of the encounter and accurately reflects the service I personally performed. - Assessment: 37 y.o. female presents to ED with complaint of abdominal pain and nausea. Differential Diagnosis: Pancreatitis, gastritis, biliary pathology In order to fully explore the differential diagnosis the following treatments and tests were ordered: ED Medication Administration from 11/26/2023 0808 to 11/26/2023 1101 Date/Time Order Dose Route Action 11/26/2023 0912 EDT ondansetron (Zofran) injection 4 mg 4 mg Intravenous Given 11/26/2023 0913 EDT sodium chloride 0.9 % infusion 500 mL 500 mL Intravenous New Bag 11/26/2023 0914 EDT morphine PF 4 mg 4 mg Intravenous Given 11/26/2023 0953 EDT oxyCODONE (Roxicodone) immediate release tablet 10 mg 10 mg Oral Given 11/26/2023 0954 EDT sodium chloride 0.9 % infusion 500 mL 0 mL Intravenous Stopped All Other Orders Ordered Status Ordering Provider 11/26/23 0919 Extra Tubes Once In process GAGANDEEPTONY MARQUEZ 11/26/23 0919 Light Green Top PROCEDURE ONCE [facility] 11/26/23 0919 Lavender Top PROCEDURE ONCE In [facility] 11/26/23 0845 hCG qualitative STAT Final result TONY STONE 11/26/23 0845 Comprehensive Metabolic Panel, Plasma STAT Final result GAGANDEEPTONY MARQUEZ 11/26/23 0845 CBC and Differential STAT Final result GAGANDEEPTONY MARQUEZ 11/26/23 0845 Lipase, Plasma STAT Final result [facility] 11/26/23 0845 Lactate, venous STAT Final result TONY STONE ED Course as of 11/26/23 1101 Annabel Nov 26, 2023 0925 Lactate: 2.1 [ER] 0925 WBC: 5.31 [ER] 0925 Hemoglobin: 12.0 [ER] 1028 Test: Negative [ER] 1028 Glucose: 96 [ER] 1028 Creatinine: 0.60 [ER] 1028 Sodium: 141 [ER] 1028 Potassium: 4.2 [ER] 1028 Chloride: 106 [ER] 1059 Lipase: 38 [ER] ED Course User Index [ER] Gagandeep, Tony M, MD Clinical Impressions as of 11/26/23 1101 Generalized abdominal pain Patient is well-appearing with reassuring vital signs and a normal workup. Pain is controlled in the ED and she appears stable and appropriate to continue outpatient management without emergent conditions identified or need for additional workup or imaging based on re-evaluation Ultimately, this patient was Was discharged Home (Discharge) The encounter diagnosis was Generalized abdominal pain. . Patient was counseled on [...] patients discharge education packet. ED Prescriptions None Disposition Discharge - Tony Stone MD 11/26/23 1102 * ED Triage Notes - Gela Joseph RN - 11/26/2023 8:08 AM EDT Pt c/o LUQ abdominal pain that worsened last night. documented in this encounter Plan of Treatment Not on file documented as of this encounter Procedures Procedure Name Priority Date/Time Associated Diagnosis Comments EXTRA TUBE LAVENDER TOP Routine 11/26/2023 9:11 AM EDT EXTRA TUBE LIGHT GREEN TOP Routine 11/26/2023 9:11 AM EDT LACTATE, VENOUS STAT 11/26/2023 9:11 AM EDT EXTRA TUBES Routine 11/26/2023 9:11 AM EDT CBC WITH AUTO DIFFERENTIAL STAT 11/26/2023 9:11 AM EDT TEST QUALITATIVE PLASMA STAT 11/26/2023 9:11 AM EDT LIPASE, PLASMA STAT 11/26/2023 9:11 AM EDT COMPREHENSIVE METABOLIC PANEL, PLASMA STAT 11/26/2023 9:11 AM EDT documented in this encounter Results * Lavender Top (11/26/2023 9:11 AM EDT) Extra Hold for add-ons 11/26/2023 12:01 PM EDT [facility] Comment:Auto resulted. Blood Venous blood specimen / Unknown Venipuncture / Unknown 11/26/2023 9:11 AM EDT 11/26/2023 9:19 AM EDT us Tony Stone MD LAB BLOOD ORDERABLES Final Resul t Performing Organization Address [facility] Co de Phone Number [facility] [address] [place] [address] * Light Green Top (11/26/2023 9:11 AM EDT) Extra Hold for add-ons 11/26/2023 12:01 PM EDT [facility] Comment:Auto resulted. Blood Venous blood specimen / Unknown Venipuncture / Unknown 11/26/2023 9:11 AM EDT 11/26/2023 9:19 AM EDT us Tony Stone MD LAB BLOOD ORDERABLES Final Resul t Performing Organization Address City/[facility] Co de Phone Number [facility] [address] [place] [address] * hCG qualitative (11/26/2023 9:11 AM EDT) Test Negative Negative 11/26/2023 10:20 AM EDT [facility] Blood Venous blood specimen / Unknown Venipuncture / Unknown 11/26/2023 9:11 AM EDT 11/26/2023 9:18 AM EDT Narrative [facility] - 11/26/2023 10:20 AM EDT Reference Range: Males and non- females: Negative. us Tony Stone MD LAB BLOOD ORDERABLES Final Resul t Performing Organization Address City/[facility]/ZIP Co de Phone Number [facility] [address] [place] [address] * Lactate, venous (11/26/2023 9:11 AM EDT) Lactate, Venous, Whole Blood 2.1 0.5 - 2.2 mmol/L LAB HEMATOLOGY METHOD 11/26/2023 9:22 AM EDT [facility] Blood Venous blood specimen / Unknown Venipuncture / Unknown 11/26/2023 9:11 AM EDT 11/26/2023 9:18 AM EDT Tony Stone MD LAB BLOOD ORDERABLES Final Resul t Performing Organization Address [facility] Co de Phone Number [facility] [address] [place] [address] * Lipase, Plasma (11/26/2023 9:11 AM EDT) Lipase, Plasma 38 19 - 63 U/L 11/26/2023 10:58 AM EDT [facility] Blood Venous blood specimen / Unknown Venipuncture / Unknown 11/26/2023 9:11 AM EDT 11/26/2023 9:18 AM EDT Tony Stone MD LAB BLOOD ORDERABLES Final Resul t Performing Organization Address [facility] Co de Phone Number [facility] [address] [place] [address] * (ABNORMAL) CBC and Differential (11/26/2023 9:11 AM EDT) WBC Count 5.31 3.70 - 10.30 10*3/uL LAB HEMATOLOGY METHOD 11/26/2023 9:23 AM EDT [facility] RBC Count 4.65 3.90 - 5.20 10*6/uL LAB HEMATOLOGY METHOD 11/26/2023 9:23 AM EDT [facility] HGB 12.0 11.2 - 15.7 g/dL LAB HEMATOLOGY METHOD 11/26/2023 9:23 AM EDT [facility] HCT 37.8 34.0 - 45.0 % LAB HEMATOLOGY METHOD 11/26/2023 9:23 AM EDT [facility] Platelet Count 222 155 - 369 10*3/uL LAB HEMATOLOGY METHOD 11/26/2023 9:23 AM EDT [facility] MCV 81 79 - 98 fL LAB HEMATOLOGY METHOD 11/26/2023 9:23 AM EDT [facility] MCH 25.8(L) 26.0 - 32.0 pg LAB HEMATOLOGY METHOD 11/26/2023 9:23 AM EDT [facility] MCHC 31.7 30.7 - 35.5 g/dL LAB HEMATOLOGY METHOD 11/26/2023 9:23 AM EDT [facility] RDW 17.3(H) 11.5 - 14.5 % LAB HEMATOLOGY METHOD 11/26/2023 9:23 AM EDT [facility] MPV 9.5 8.8 - 12.5 fL LAB HEMATOLOGY METHOD 11/26/2023 9:23 AM EDT [facility] nRBC 0.0 <=0.0 per 100 WBCs LAB HEMATOLOGY METHOD 11/26/2023 9:23 AM EDT [facility] Differential Type Automated LAB HEMATOLOGY METHOD 11/26/2023 9:23 AM EDT [facility] Neutrophils % 57.0 % LAB HEMATOLOGY METHOD 11/26/2023 9:23 AM EDT [facility] Lymphocytes % 33.0 % LAB HEMATOLOGY METHOD 11/26/2023 9:23 AM EDT [facility] Monocytes % 4.0 % LAB HEMATOLOGY METHOD 11/26/2023 9:23 AM EDT [facility] Eosinophils % 4.0 % LAB HEMATOLOGY METHOD 11/26/2023 9:23 AM EDT [facility] Basophils % 1.0 % LAB HEMATOLOGY METHOD 11/26/2023 9:23 AM EDT [facility] Immature Granulocytes % 1.0 % LAB HEMATOLOGY METHOD 11/26/2023 9:23 AM EDT [facility] Neutrophils Absolute 3.02 1.60 - 6.10 10*3/uL LAB HEMATOLOGY METHOD 11/26/2023 9:23 AM EDT [facility] Lymphocytes Absolute 1.76 1.20 - 3.90 10*3/uL LAB HEMATOLOGY METHOD 11/26/2023 9:23 AM EDT [facility] Monocytes Absolute 0.22(L) 0.30 - 0.90 10*3/uL LAB HEMATOLOGY METHOD 11/26/2023 9:23 AM EDT [facility] Eosinophils Absolute 0.23 0.00 - 0.50 10*3/uL LAB HEMATOLOGY METHOD 11/26/2023 9:23 AM EDT [facility] Basophils Absolute 0.04 0.00 - 0.10 10*3/uL LAB HEMATOLOGY METHOD 11/26/2023 9:23 AM EDT [facility] Immature Granulocytes Absolute 0.04 0.00 - 0.06 10*3/uL LAB HEMATOLOGY METHOD 11/26/2023 9:23 AM EDT [facility] Blood Venous blood specimen / Unknown Venipuncture / Unknown 11/26/2023 9:11 AM EDT 11/26/2023 9:18 AM EDT Narrative [facility] - 11/26/2023 9:23 AM EDT Therapeutic decision making should be based on absolute values, rather than percentages. us Tony Stone MD LAB BLOOD ORDERABLES Final Resul t Performing Organization Address City/State/[facility] Co de Phone Number [facility] [address] [place] [address] * (ABNORMAL) Comprehensive Metabolic Panel, Plasma (11/26/2023 9:11 AM EDT) Glucose, Plasma 96 74 - 99 mg/dL 11/26/2023 10:20 AM EDT [facility] BUN, Plasma 7 7 - 21 mg/dL 11/26/2023 10:20 AM EDT [facility] Creatinine, Plasma 0.60 0.60 - 1.10 mg/dL 11/26/2023 10:20 AM EDT [facility] BUN/Creatinine Ratio 12 11/26/2023 10:20 AM EDT [facility] Sodium, Plasma 141 136 - 145 mmol/L 11/26/2023 10:20 AM EDT [facility] Potassium, Plasma 4.2 3.6 - 4.9 mmol/L 11/26/2023 10:20 AM EDT [facility] Chloride, Plasma 106 97 - 107 mmol/L 11/26/2023 10:20 AM EDT [facility] CO2, Plasma 24 22 - 29 mmol/L 11/26/2023 10:20 AM EDT [facility] Anion Gap 11 6 - 16 mmol/L 11/26/2023 10:20 AM EDT [facility] Total Calcium, Plasma 8.6(L) 8.9 - 10.2 mg/dL 11/26/2023 10:20 AM EDT [facility] Total Protein 6.5 6.3 - 7.9 g/dL 11/26/2023 10:20 AM EDT [facility] Albumin, Plasma 4.0 3.5 - 5.2 g/dL 11/26/2023 10:20 AM EDT [facility] AST, Plasma 14 10 - 35 U/L 11/26/2023 10:20 AM EDT [facility] ALT, Plasma 13 10 - 35 U/L 11/26/2023 10:20 AM EDT [facility] Alkaline Phosphatase, Plasma 98 35 - 104 U/L 11/26/2023 10:20 AM EDT [facility] Total Bilirubin, Plasma <0.2(L) 0.2 - 1.1 mg/dL 11/26/2023 10:20 AM EDT [facility] eGFRcr 119.5 mL/min/1.7 3m*2 11/26/2023 10:20 AM EDT [facility] Comment:Reported eGFRcr in m L/min/1.73m2 is based the CKD-EPI 2020 equation that does not use a race coefficient. Blood Venous blood specimen / Unknown Venipuncture / Unknown 11/26/2023 9:11 AM EDT 11/26/2023 9:18 AM EDT us Tony Stone MD LAB BLOOD ORDERABLES Final Resul t [facility] [address] [place] [id number] documented in this encounter Visit Diagnoses Diagnosis Generalized abdominal pain- Primary Abdominal pain, generalized documented in this encounter Administered Medications Inactive Administered Medications - up to 3 most recent administrations Medication Order MAR Action Action Date Dose Rate Site morphine PF 4 mg 4 mg, Intravenous, Once, 1 dose, On Annabel 11/26/23 at 0850, STAT Given 11/26/2023 9:14 AM EDT 4 mg ondansetron (Zofran) injection 4 mg 4 mg, Intravenous, Once, 1 dose, On Annabel 11/26/23 at 0850, STAT Given 11/26/2023 9:12 AM EDT 4 mg oxyCODONE (Roxicodone) immediate release tablet 10 mg 10 mg, Oral, Every 4 hours PRN, 2 doses, Starting on Annabel 11/26/23 at 0944, Until Annabel 11/26/23 at 1320, Routine, severe pain Given 11/26/2023 9:53 AM EDT 10 mg oxyCODONE (Roxicodone) immediate release tablet 5 mg 5 mg, Oral, Once, 1 dose, On Annabel 11/26/23 at 1105, STAT Given 11/26/2023 11:15 AM EDT 5 mg sodium chloride 0.9 % infusion 500 mL 500 mL, Intravenous, Once, 1 dose, On Annabel 11/26/23 at 0850, STAT New Bag 11/26/2023 9:13 AM EDT 500 mL documented in this encounter Active and Recently Administered Medications Times are shown in EDT. Scheduled Medication Order 11/24/2023 11/25/2023 11/26/2023 morphine PF 4 mg (COMPLETED) 4 mg, Intravenous, Once, 1 dose, On Annabel 11/26/23 at 0850, STAT 0914 (Given - Provid er: Gela Joseph RN) ondansetron (Zofran) injection 4 mg (COMPLETED) 4 mg, Intravenous, Once, 1 dose, On Annabel 1024 at 0850, STAT 0912 (Given - Provid er: Gela Joseph RN) oxyCODONE (Roxicodone) immediate release tablet 5 mg (COMPLETED) 5 mg, Oral, Once, 1 dose, On Annabel 11/26/23 at 1105, STAT 1115 (Given - Provid er: Gela Joseph RN) sodium chloride 0.9 % infusion 500 mL (COMPLETED) 500 mL, Intravenous, Once, 1 dose, On Annabel 11/26/23 at 0850, STAT 0913 (New Bag - Prov ider: Gela Joseph RN)0954 (Stopped - Provider: Gela Joseph RN) PRN Medication Order 11/24/2023 11/25/2023 11/26/2023 oxyCODONE (Roxicodone) immediate release tablet 10 mg 10 mg, Oral, Every 4 hours PRN, 2 doses, Starting on Annabel 10/3/24 at 0944, Until Annabel 11/26/23 at 1320, Routine, severe pain 0953 (Given - Provid er: Gela Joseph RN) documented in this encounter Additional Health Concerns Assessment Noted Time A fall risk assessment has been complete d for the patient 11/21/2020 2:30 PM EDT A Body Mass Index follow-up plan has been documented for the patient 10/28/2023 1:22 PM EDT documented as of this encounter Care Teams Environmental Web Crawler Relationship Specialty Start Date End Date Lisa Foote, ESTEBAN [address] [place] [address] PCP - General 10/23/23 documented as of this encounter
--- OUTSIDE RECORDS SUMMARY | 2024-02-03 15:09 | XMS_ITS | Encounter Summary ---
Author Organization Healthcare Address [address] [place] [address] Care Team Providers Care Jewelry Drilling Machine Operator Name Role Phone Lisa Foote ESTEBAN Primary Care Provider Reason for Visit * Reason Comments Abdominal Pain Encounter Details Date Type Department Care Team ([facility] st Contact Info) Description 11/28/2023 3:46 AM EDT - 11/28/2023 9:16 AM EDT Emergency [facility] Emergency Department [address] [place] [address] Pedro Tang [place] [address] Garrison Lynne MD [address] [place] [phone] Epigastric pain (Primary Dx) Discharge Disposition: Home [...] drink first t caleb in the morning (EYE-REFRESH TECHNICIAN) to steady your nerves or to [...] Sign Reading Time Taken Comments Blood Pressure 145/98 11/28/2023 7:55 AM EDT Pulse 59 11/28/2023 8:00 AM EDT Temperature 36.6 ??C (97.9 ??F) 11/28/2023 7:55 AM ED T Respiratory Rate 16 11/28/2023 8:00 AM EDT Oxygen Saturation 98% 11/28/2023 8:00 AM EDT Inhaled Oxygen Concentration - - [...] this encounter Discharge Instructions * Discharge Instructions* Walt Elliott DO - 11/28/2023 8:35 AM EDT You were seen and evaluated in the emergency department. As discussed as important to continue monitoring your symptoms. Please take medication as prescribed. Eat and drink as tolerated. If you notice any acute or sudden change in your symptoms please report back to the emergency department. documented in this encounter Medications at Time of Discharge pantoprazole (Protonix) 40 MG EC tablet Take 1 tablet (40 mg) by mouth 1 (one) time each day. Do not crush, chew, or split. oxyCODONE (Roxicodone) 5 MG immediate release tablet Take 1 tablet (5 mg) by mouth every 6 (six) hours if needed (pain) for up to 2 days. 6 tablet 4 11/30/19 24 acetaminophen (Tylenol) 325 MG tablet Take 2 tablets (650 mg) by mouth every 6 (six) hours if needed for pain. Under [place] law, monthly prescriptions (30 days) can be [...] pain. 30 tablet 4 01/22/20 24 pancrelipase, Kel-Mnay-Pdam, (Creon) [id number] units capsule Take 2 capsules by mouth [...] Miscellaneous Notes * ED Provider Notes - Ana Bains DO - 11/28/2023 3:38 AM EDT - HPI Chief Complaint Patient presents with Abdominal Pain This is a 37-year-old female with history of anxiety, fibromyalgia, GERD, and chronic pancreatitis which patient reports is secondary to a previous gallstone that was lodged in her pancreas who presents emergency department with abdominal pain, nausea, and vomiting of multiple days duration. She states that she was able to keep down food and promethazine last night at 8:00 p.m., however she has been vomiting with abdominal pain ever since and has been unable to keep any food or liquids down. She states that she sometimes has to be admitted for bouts of pancreatitis. She denies any recent fevers, chest pain, or dysuria. She describes her abdominal pain is located in the epigastric region with radiation to her back. 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 by: Patient Patient History Past Medical History: Diagnosis Date Anxiety Arthritis Depression Fibromyalgia Gastric erosions 04/19/2021 GERD (gastroesophageal reflux disease) Hypertension Intentional overdose ([facility]) 12/20/2021 Nicotine dependence Obesity [...] attacks too. Physical Exam ED Triage Vitals [11/28/23 0342] Temp Heart Rate Resp BP 36.7 ??C (98 ??F) 95 18 (!) 148/93 SpO2 Temp Source Heart Rate Source Patient Position 99 % Oral -- -- BP Location FiO2 (%) -- -- Physical Exam Vitals and nursing note reviewed. Constitutional: General: She is not in acute distress. Appearance: She is well-developed. HENT: Head: Normocephalic and atraumatic. Mouth/Throat: Mouth: Mucous membranes are moist. Eyes: Extraocular Movements: Extraocular movements intact. Conjunctiva/sclera: Conjunctivae normal. Cardiovascular: Rate and Rhythm: Normal rate and regular rhythm. Heart sounds: No murmur heard. Pulmonary: Effort: Pulmonary effort is normal. No respiratory distress. Breath sounds: Normal breath sounds. Abdominal: Palpations: Abdomen is soft. Tenderness: There is no guarding or rebound. Comments: Mild epigastric tenderness Musculoskeletal: General: No swelling. Cervical back: Neck supple. Skin: General: Skin is warm and dry. Capillary Refill: Capillary refill takes less than 2 seconds. Neurological: Mental Status: She is alert and oriented to person, place, and time. Psychiatric: Mood and Affect: Mood normal. Dudley Coma Scale Score: 15 ED Course & MDM - Assessment: 37 y.o. female presents to ED with complaint of concern for recurrent pancreatitis with abdominal pain, nausea, vomiting, and decreased oral intake. It should be noted that the chronic conditions includes chronic pancreatitis, which currently is not at goal therapy. This complicates the clinical picture because it Comorbidities: may be exacerbating symptoms Differential Diagnosis: Pancreatitis, pseudocyst, pancreatic abscess, viral gastroenteritis, dehydration On initial assessment, the patient is in no acute distress. She was hemodynamically stable and afebrile. Her abdominal exam reveals mild epigastric tenderness without peritonitis. Care will be based on symptom treatment and there is no acute indication for imaging at this time. In order to fully explore the differential diagnosis the following treatments and tests were ordered: ED Medication Administration from 11/28/2023 0337 to 11/28/2023 0718 Date/Time Order Dose Route Action 11/28/2023539 EDT ketorolac (Toradol) injection 15 mg 15 mg Intravenous Given 11/28/2023539 EDT morphine PF 4 mg 4 mg Intravenous Given 11/28/2023539 EDT ondansetron (Zofran) injection 4 mg 4 mg Intravenous Given 11/28/2023 0540 EDT sodium chloride 0.9 % infusion 1,000 mL 1,000 mL Intravenous New Bag All Other Orders Ordered Status Ordering Provider 11/28/23 05 Extra Tubes Once In process PEDRO TANG 11/28/23 05 Light Blue Top PROCEDURE ONCE In process PEDRO TANG 11/28/23 0530 Gold Top PROCEDURE ONCE In process PEDRO TANG 11/28/23 045 Lipase STAT Final result ANA BAINS 11/28/23 045 CMP STAT Final result ANA BAINS 11/28/23 045 CBC w/diff STAT Final result ANA BAINS Social Determinates of Health Risks (including Economic Stability, Education and level of understanding, Healthcare access and quality and concerning social factors): None identified on this visit Ultimately, this patient was was signed out to the oncoming provider (Signed Out) Patient care assumed by oncoming provider, Earl, at shift change, tentative plan at the time of sign-out was reassess after IV fluids, IV antiemetics, and IV pain medications. Should patient persistently be unable to tolerate oral intake, hospital admission may be warranted. ED Prescriptions None - Ana Bains DO Resident 11/28/2318 Cosigned by Pedro Tang MD at 12/02/2023 10:03 AM EDT Associated attestation - Pedro Tang MD - 12/02/2023 10:03 AM EDT I saw and evaluated the patient with the resident/fellow. I discussed the case with the resident/fellow and agree with the findings and plan as documented. * ED Triage Notes - Gage Ackerman RN - 11/28/2023 3:38 AM EDT Pt endorsing abdominal pain since with nausea and vomiting. Denies fevers, diarrhea. Reports h/o pancreatitis and was discharged from [facility] on for same complaint. GCS 15 A&O x4. * Progress Notes - Walt Elliott DO - 11/28/2023 3:38 AM EDT I received sign-out and accepted care of this patient from the departing Drs: resident Bains at 0630. Please see the primary providers??? note for complete elements of the history, physical exam, and ED course. Illness Severity: Stable Patient Summary: Lila Mcnally is a 37 y.o. female with a PMHx of Past Medical History: Diagnosis Date Anxiety Arthritis Depression Fibromyalgia Gastric erosions 04/19/2021 GERD (gastroesophageal reflux disease) Hypertension Intentional overdose ([facility]) 12/20/2021 Nicotine dependence Obesity Pancreatitis presented to the ED abdominal pain, nausea, vomiting. Most recent vital signs: Visit Vitals BP (!) 145/98 (BP Location: Right arm, Patient Position: Lying) Pulse 79 Temp 36.6 ??C (97.9 ??F) (Oral) Resp 18 SpO2 97% OB Status Having periods Smoking Status Every Day Lab and imaging results: As agreed upon by previous resident attending Action plan (To Do): Reassessment of patient, attempt by mouth trial, disposition accordingly. Disposition: On initial reassessment by this physician, the patient was noted to be sitting in bed.Patient was drinking gingival without difficulty. Patient was able to eat saltines without difficulty or vomiting. Patient was presenting with a short course of outpatient pain medication stating that she would follow up with the primary care on Thursday for further evaluation of her pain. Patient was able to ambulate without difficulty. All questions were answered at the time of discharge, strict return precautions were provided. Clinical Impressions as of 11/28/23 0835 Epigastric pain - Cosigned by Garrison Lynne MD at 11/30/2023 7:50 AM EDT Associated attestation - Garrison Lynne MD - 11/30/2023 7:50 AM EDT I saw and evaluated the patient with the resident/fellow. I discussed the case with the resident/fellow and agree with the findings and plan as documented. documented in this encounter Plan of Treatment Not on file documented as of this encounter Procedures Procedure Name Priority Date/Time Associated Diagnosis Comments EXTRA TUBE GOLD TOP Routine 11/28/2023 5 :30 AM EDT EXTRA TUBE LIGHT BLUE TOP Routine 11/28/2023 5:30 AM EDT EXTRA TUBES Routine 11/28/2023 5:30 AM EDT CBC WITH AUTO DIFFERENTIAL STAT 11/28/2023 5:26 AM EDT LIPASE, PLASMA STAT 11/28/2023 5:26 AM EDT COMPREHENSIVE METABOLIC PANEL, PLASMA STAT 11/28/2023 5:26 AM EDT documented in this encounter Results * Gold Top (11/28/2023 5:30 AM EDT) Extra Hold for add-ons 11/28/2023 8:01 AM EDT [facility] Comment:Auto resulted. Blood Venous blood specimen / Unknown 11/28/2023 5:30 AM EDT 11/28/2023 5:30 AM EDT us Pedro Tang MD LAB BLOOD ORDERABLES Final Result [facility] [address] [place] [address] * Light Blue Top (11/28/2023 5:30 AM EDT) Extra Hold for add-ons 11/28/2023 8:01 AM EDT [facility] Comment:Auto resulted. Blood Venous blood specimen / Unknown 11/28/2023 5:30 AM EDT 11/28/2023 5:30 AM EDT Pedro Tang MD LAB BLOOD ORDERABLES Final Result [facility] [address] [place] [address] * (ABNORMAL) CBC w/diff (11/28/2023 5:26 AM EDT) WBC Count 6.12 3.70 - 10.30 10*3/uL LAB HEMATOLOGY METHOD 11/28/2023 5:32 AM EDT [facility] RBC Count 4.49 3.90 - 5.20 10*6/uL LAB HEMATOLOGY METHOD 11/28/2023 5:32 AM EDT [facility] HGB 11.5 11.2 - 15.7 g/dL LAB HEMATOLOGY METHOD 11/28/2023 5:32 AM EDT [facility] HCT 36.4 34.0 - 45.0 % LAB HEMATOLOGY METHOD 11/28/2023 5:32 AM EDT [facility] Platelet Count 241 155 - 369 10*3/uL LAB HEMATOLOGY METHOD 11/28/2023 5:32 AM EDT [facility] MCV 81 79 - 98 fL LAB HEMATOLOGY METHOD 11/28/2023 5:32 AM EDT [facility] MCH 25.6(L) 26.0 - 32.0 pg LAB HEMATOLOGY METHOD 11/28/2023 5:32 AM EDT [facility] MCHC 31.6 30.7 - 35.5 g/dL LAB HEMATOLOGY METHOD 11/28/2023 5:32 AM EDT [facility] RDW 16.9(H) 11.5 - 14.5 % LAB HEMATOLOGY METHOD 11/28/2023 5:32 AM EDT [facility] MPV 9.7 8.8 - 12.5 fL LAB HEMATOLOGY METHOD 11/28/2023 5:32 AM EDT [facility] nRBC 0.0 <=0.0 per 100 WBCs LAB HEMATOLOGY METHOD 11/28/2023 5:32 AM EDT [facility] Differential Type Automated LAB HEMATOLOGY METHOD 11/28/2023 5:32 AM EDT [facility] Neutrophils % 60.0 % LAB HEMATOLOGY METHOD 11/28/2023 5:32 AM EDT [facility] Lymphocytes % 30.0 % LAB HEMATOLOGY METHOD 11/28/2023 5:32 AM EDT [facility] Monocytes % 5.0 % LAB HEMATOLOGY METHOD 11/28/2023 5:32 AM EDT [facility] Eosinophils % 3.0 % LAB HEMATOLOGY METHOD 11/28/2023 5:32 AM EDT [facility] Basophils % 1.0 % LAB HEMATOLOGY METHOD 11/28/2023 5:32 AM EDT [facility] Immature Granulocytes % 1.0 % LAB HEMATOLOGY METHOD 11/28/2023 5:32 AM EDT [facility] Neutrophils Absolute 3.71 1.60 - 6.10 10*3/uL LAB HEMATOLOGY METHOD 11/28/2023 5:32 AM EDT [facility] Lymphocytes Absolute 1.85 1.20 - 3.90 10*3/uL LAB HEMATOLOGY METHOD 11/28/2023 5:32 AM EDT [facility] Monocytes Absolute 0.28(L) 0.30 - 0.90 10*3/uL LAB HEMATOLOGY METHOD 11/28/2023 5:32 AM EDT [facility] Eosinophils Absolute 0.19 0.00 - 0.50 10*3/uL LAB HEMATOLOGY METHOD 11/28/2023 5:32 AM EDT [facility] Basophils Absolute 0.06 0.00 - 0.10 10*3/uL LAB HEMATOLOGY METHOD 11/28/2023 5:32 AM EDT [facility] Immature Granulocytes Absolute 0.03 0.00 - 0.06 10*3/uL LAB HEMATOLOGY METHOD 11/28/2023 5:32 AM EDT [facility] Blood Venous blood specimen / Unknown Venipuncture / Unknown 11/28/2023 5:26 AM EDT 11/28/2023 5:29 AM EDT [facility] - 11/28/2023 5:32 AM EDT Therapeutic decision making should be based on absolute values, rather than percentages. us Pedro Tang MD LAB BLOOD ORDERABLES Final Result [facility] [address] [place] [address] * (ABNORMAL) CMP (11/28/2023 5:26 AM EDT) Glucose, Plasma 102(H) 74 - 99 mg/dL 11/28/2023 6:11 AM EDT [facility] BUN, Plasma 11 7 - 21 mg/dL 11/28/2023 6:11 AM EDT [facility] Creatinine, Plasma 0.62 0.60 - 1.10 mg/dL 11/28/2023 6:11 AM EDT [facility] BUN/Creatinine Ratio 18 11/28/2023 6:11 AM EDT [facility] Sodium, Plasma 141 136 - 145 mmol/L 11/28/2023 6:11 AM EDT [facility] Potassium, Plasma 4.4 3.6 - 4.9 mmol/L 11/28/2023 6:11 AM EDT [facility] Chloride, Plasma 105 97 - 107 mmol/L 11/28/2023 6:11 AM EDT [facility] CO2, Plasma 25 22 - 29 mmol/L 11/28/2023 6:11 AM EDT [facility] Anion Gap 11 6 - 16 mmol/L 11/28/2023 6:11 AM EDT [facility] Total Calcium, Plasma 9.0 8.9 - 10.2 mg/dL 11/28/2023 6:11 AM EDT [facility] Total Protein 6.5 6.3 - 7.9 g/dL 11/28/2023 6:11 AM EDT [facility] Albumin, Plasma 3.8 3.5 - 5.2 g/dL 11/28/2023 6:11 AM EDT [facility] AST, Plasma 14 10 - 35 U/L 11/28/2023 6:11 AM EDT [facility] ALT, Plasma 13 10 - 35 U/L 11/28/2023 6:11 AM EDT [facility] Alkaline Phosphatase, Plasma 104 35 - 104 U/L 11/28/2023 6:11 AM EDT [facility] Total Bilirubin, Plasma <0.2(L) 0.2 - 1.1 mg/dL 11/28/2023 6:11 AM EDT [facility] eGFRcr 118.5 mL/min/1.7 3m*2 11/28/2023 6:11 AM EDT [facility] Comment:Reported eGFRcr in m L/min/1.73m2 is based the CKD-EPI 2020 equation that does not use a race coefficient. Blood Venous blood specimen / Unknown Venipuncture / Unknown 11/28/2023 5:26 AM EDT 11/28/2023 5:42 AM EDT us Pedro Tang MD LAB BLOOD ORDERABLES Final Result Performing Organization Address City/[facility]/ZIP Co de Phone Number [facility] [address] [place] [address] * Lipase (11/28/2023 5:26 AM EDT) Lipase, Plasma 35 19 - 63 U/L 11/28/2023 6:11 AM EDT [facility] Blood Venous blood specimen / Unknown Venipuncture / Unknown 11/28/2023 5:26 AM EDT 11/28/2023 5:42 AM EDT Pedro Tang MD LAB BLOOD ORDERABLES Final Result Performing Organization Address City/[facility]/ZIP Co de Phone Number [facility] [address] [place] [address] documented in this encounter Visit Diagnoses Diagnosis Epigastric pain- Primary Abdominal pain, epigastric documented in this encounter Administered Medications Inactive Administered Medications - up to 3 most recent administrations Medication Order MAR Action Action Date Dose Rate Site ketorolac (Toradol) injection 15 mg 15 mg, Intravenous, Once, 1 dose, On 11/28/23 at 0455, STAT Given 11/28/2023 5:40 AM EDT 15 mg morphine PF 4 mg 4 mg, Intravenous, Once, 1 dose, On 11/28/23 at 0455, STAT Given 11/28/2023 5:40 AM EDT 4 mg ondansetron (Zofran) injection 4 mg 4 mg, Intravenous, Once, 1 dose, On 11/28/23 at 0455, STAT Given 11/28/2023 5:40 AM EDT 4 mg oxyCODONE (Roxicodone) immediate release tablet 5 mg 5 mg, Oral, Once, 1 dose, On 11/28/23 at 0815, STAT Given 11/28/2023 8:16 AM EDT 5 mg sodium chloride 0.9 % infusion 1,000 mL 1,000 mL, Intravenous, Once, 1 dose, On 11/28/23 at 0455, STAT New Bag 11/28/2023 5:40 AM EDT 1,000 mL documented in this encounter Active and Recently Administered Medications Times are shown in EDT. Scheduled Medication Order 11/26/2023 11/27/2023 11/28/2023 ketorolac (Toradol) injection 15 mg (COMPLETED) 15 mg, Intravenous, Once, 1 dose, On 11/28/23 at 0455, STAT 0540 (Given - Provid er: Ibis Horton RN) morphine PF 4 mg (COMPLETED) 4 mg, Intravenous, Once, 1 dose, On 11/28/23 at 0455, STAT 0540 (Given - Provid er: Ibis Horton RN) ondansetron (Zofran) injection 4 mg (COMPLETED) 4 mg, Intravenous, Once, 1 dose, On 11/28/23 at 0455, STAT 0540 (Given - Provid er: Ibis Horton RN) oxyCODONE (Roxicodone) immediate release tablet 5 mg (COMPLETED) 5 mg, Oral, Once, 1 dose, On 11/28/23 at 0815, STAT 0816 (Given - Provid er: Fela Rivera RN) sodium chloride 0.9 % infusion 1,000 mL (COMPLETED) 1,000 mL, Intravenous, Once, 1 dose, On 11/28/23 at 0455, STAT 0540 (New Bag - Prov ider: Ibis Hotron RN)0757 (Stopped - Provider: Teto Briseno RN) documented in this encounter Additional Health Concerns Assessment Noted Time A fall risk assessment has been complete d for the patient 11/21/2020 2:30 PM EDT A Body Mass Index follow-up plan has been documented for the patient 10/28/2023 1:22 PM EDT documented as of this encounter Care Teams Jewelry Drilling Machine Operator Relationship Specialty Start Date End Date Lisa Foote APRN [address] [phone] PCP - General 10/23/23 documented as of this encounter
--- OUTSIDE RECORDS SUMMARY | 2024-02-03 15:09 | XMS_ITS | Encounter Summary ---
Author Organization [facility] Address [address] [place] [address] Care Team Providers Care Globe Changer Name Role Phone Lisa Foote ESTEBAN Primary Care Provider Encounter Details Date Type Department Care Team (Latest Contact Info) Description 11/08/2023 Travel Social History Tobacco Use Types Packs/Day [...] drink first t caleb in the morning (EYE-TAX AUDITOR) to steady your nerves or to get [...] documented as of this encounter Care Teams Globe Changer Relationship Specialty Start Date End Date iLsa Foote APRN [address] [place] [address] PCP - General 10/23/23 documented as of this encounter
--- OUTSIDE RECORDS SUMMARY | 2024-02-03 15:10 | XMS_ITS | Encounter Summary ---
Author Organization [facility] Address [address] [place] [address] Care Team Providers Care Residential Program Manager Name Role Phone Lisa Foote ESTEBAN Primary Care Provider [phone] Encounter Details Date Type Department Care Team (Latest Contact Info) Description 10/27/2023 Travel Social History Tobacco Use Types Packs/Day [...] place to sleep or slept in a [facility] (including now)? No 10/27/2023 CAGE ASSESSMENT Answer [...] drink first t caleb in the morning (EYE-BATCHMAKER) to steady your nerves or to get [...] documented as of this encounter Care Teams Residential Program Manager Relationship Specialty Start Date End Date Lisa Foote APRN [address] [place] [address] PCP - General 10/23/23 documented as of this encounter
--- OUTSIDE RECORDS SUMMARY | 2024-02-03 15:10 | XMS_ITS | Encounter Summary ---
Author Organization [facility] Address [address] [place] [address] Care Team Providers Care Financial Aid Officer Name Role Phone JimmyCitlali lowe Gilberto ORELLANA Primary Care Provider [phone] Encounter Details Date Type Department Care Team (Latest Contact Info) Description 10/13/2023 Travel Social History Tobacco Use Types Packs/Day [...] afraid of your partner or ex-partner? No 04/13/2023 Within the last year, have y ou been humiliated or emotionally abused in other ways by your partner or ex-partner? No Within the last year, have y ou been kicked, hit, slapped, or otherwise physically hurt by your partner or ex-partner? No 04/13/2023 Within the last year, have y ou been raped or forced to have any kind of sexual activity by your partner or ex-partner? No 04/13/2023 PHQ-2 Answer Date Recorded Patient Health Questionnaire-2 Score 2 11/21/2020 Hunger Vital Sign Answer Date Recorded Within the past 12 months, y ou worried that your food would run out before you got the money to buy more. Never true 04/13/19 24 Within the past 12 months, t he food you bought just didn't last and you didn't have money to get more. Never true 04/13/2023 PRAPARE - Transportation Answer Date Re corded In the past 12 months, has l ack of transportation kept you from medical appointments or from getting medications? No 03/26 In the past 12 months, has l ack of transportation kept you from meetings, work, or from getting things needed for daily living? No 04/13/2023 Housing Stability Vital Sign Answer Dennis e Recorded In the last 12 months, was t here a time when you were not able to pay the mortgage or rent on time? No 04/21/2023 Number of Places Lived in the Last Year Not on f ile 04/21/2023 In the last 12 months, was t here a time when you did not have a steady place to sleep or slept in a [place] [facility] [place] (including now)? No 04/21/2023 CAGE ASSESSMENT Answer Date Recorded Due to the following: Medical status 04/11/2023 Maximum number of drinks you had on a given occasion in the last month? 5 or more drinks 04/11/2023 How many alcoholic Beverages do you typically drink in a week? 15 or more per week 04/11/2023 Have you ever felt you shoul d CUT down on your drinking? 0 04/11/2023 Have you been ANNOYED by peo ple criticizing your drinking? 0 04/11/2023 Have you felt GUILTY about your drinking? 0 04/11/2023 Have you had a drink first t caleb in the morning (EYE-TUBE TEST TECHNICIAN) to steady your nerves or to get rid of a hangover? 0 04/11/2023 CAGE Questionnaire Score 0 024 Utilities Answer Date Recorded In the past 12 months has th e electric, gas, oil, or water company threatened to shut off services in your home? No 04/13/2023 Comments Yes Sex and Gender Information Value Date Recorded [...] plan has been documented for the patient 04/14/2023 2:24 PM EST documented as of this encounter Care Teams Financial Aid Officer Relationship Specialty Start Date End Date Citlali Marquez APRN [facility] [place] [phone] PCP - General Family Medicine 03/26/23 10/19/23 documented as of this encounter
--- OUTSIDE RECORDS SUMMARY | 2024-02-03 15:10 | XMS_ITS | Encounter Summary ---
Author Organization [facility] Address [address] [place] [address] Care Team Providers Care Earthmoving Labourer Name Role Phone JimmyCitlali lowe Gilberto ORELLANA Primary Care Provider [phone] Encounter Details Date Type Department Care Team (Latest Contact Info) Description 10/18/2023 Travel Social History Tobacco Use Types Packs/Day [...] slept in a [facility] (including now)? 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-FIREFIGHTER TYPE ONE) to steady your nerves or to get [...] documented as of this encounter Care Teams Earthmoving Labourer Relationship Specialty Start Date End Date Citlali Marquez APRN [facility] [place] [phone] PCP - General Family Medicine 03/26/23 10/19/23 documented as of this encounter
--- OUTSIDE RECORDS SUMMARY | 2024-02-03 15:10 | XMS_ITS | Encounter Summary ---
Author Organization [facility] Address [address] [place] [address] Care Team Providers Care Instructional Technology Specialist Name Role Phone Lisa Foote ESTEBAN Primary Care Provider Encounter Details Date Type Department Care Team (Latest Contact Info) Description 10/23/2023 Travel Social History Tobacco Use Types Packs/Day [...] place to sleep or slept in a assisted (including now)? 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-TUMBLING MACHINE OPERATOR) to steady your nerves or to get rid of a hangover? 0 10/24/2023 CAGE Questionnaire Score 0 024 Utilities Answer Date Recorded In the past 12 months has th e electric, gas, oil, or water company threatened to shut off services in your home? No 04/13/2023 Comments No Sex and Gender Information Value [...] documented as of this encounter Care Teams Instructional Technology Specialist Relationship Specialty Start Date End Date Lisa Foote APRN [address] [place] [address] PCP - General 10/23/23 documented as of this encounter
--- OUTSIDE RECORDS SUMMARY | 2024-02-03 15:10 | XMS_ITS | Encounter Summary ---
Author Organization [facility] Address [address] [place] [address] Care Team Providers Care Counter Supply Worker Name Role Phone Pcp, No Primary Care Provider Unavailabl e Encounter Details Date Type Department Care Team (Latest Contact Info) Description 10/22/2023 Travel Social History Tobacco Use Types Packs/Day [...] the money to buy more. Never true 02/19/20 24 Within the past 12 months, t [...] slept in a residential (including now)? 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-BATTERYMAN) to steady your nerves or to get [...] documented as of this encounter Care Teams Counter Supply Worker Relationship Specialty Start Date End Date Pcp, No [address] [place] [address] PCP - General Family Medicine 10/22/23 10/22/23 documented as of this encounter
--- OUTSIDE RECORDS SUMMARY | 2024-02-03 15:10 | XMS_ITS | Encounter Summary ---
Author Organization [facility] Address [address] [place] [address] Care Team Providers Care Archaeology Professor Name Role Phone QamarLisa mckeon Beatriz ORELLANA Primary Care Provider [phone] Reason for Referral * Consultation (Routine) - Authorized Specialty Diagnoses / Procedures Referred By Susy burks Referred To Contact Gastroenterology Diagnoses History of acute pancreatitis Bouchra Leonard MD [address] [place] [address] Phone: tel: fax: Referral ID Status Reason Start Date Expiration Date Visits Requested Visits Authorized [id number] Authorized Specialty Services Required 10/28/2023 04/28/2025 1 1 Reason for Visit * Reason Comments Abdominal Pain * Auth/Cert (Routine) Specialty Diagnoses / Procedures Referred By Susy burks Referred To Contact Diagnoses Abdominal pain, epigastric [facility] [address] [place] [address] Phone: tel: [facility] Emergency Department [address] [place] [address] Phone: tel: Referral ID Status Reason Start Date Expiration Date Visits Re quested Visits Authorized [id number] 1 1 Encounter Details Date Type Department Care Team (Latest Contact Info) Description 10/23/2023 3:39 AM EDT - 10/28/2023 2:20 PM EDT Hospital Encounter [facility] Inpatient [address] [place] [address] Chad Mcclure MD [address] [place] [address] Latricia King MD [address] [place] [address] Trevon Faust MD [address] [place] [address] Marly Curran MD [address] [place] [address] Bouchra Leonard MD [address] [place] [address] Abdominal pain, epigastric (Primary Dx); Nausea and vomiting, unspecified vomiting type; Intractable abdominal pain; History of acute pancreatitis Discharge Disposition: Home or Self Care Social [...] place to sleep or slept in a intermediate (including now)? 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) to steady your nerves or to [...] Sign Reading Time Taken Comments Blood Pressure 148/89 10/28/2023 7:53 AM EDT Pulse 62 10/28/2023 7:53 AM EDT Temperature 36.4 ??C (97.5 ??F) 10/28/2023 7:53 AM ED T Respiratory Rate 17 10/28/2023 5:06 AM EDT Oxygen Saturation 94% 10/28/2023 7:53 AM EDT Inhaled Oxygen Concentration - - Weight 97.5 kg (215 lb) 10/27/2023 7:18 PM EDT Height 165.1 cm (5' 5 ) 10/27/2023 7:18 PM EDT Body Mass Index 35.78 10/27/2023 7:18 PM EDT documented in this encounter Functional [...] this encounter Discharge Instructions * Discharge Instructions* Bouchra Leonard MD - 10/28/2023 11:27 AM EDT - Avoid acidic and spicy foods and NSAIDs - Follow-up with primary care physician in one week - Follow-up with referrals for GI physician and pain clinic documented in this encounter Medications at Time of Discharge pantoprazole (Protonix) 40 MG EC tablet Take 1 tablet (40 mg) by mouth 1 (one) time each day. Do not crush, chew, or split. acetaminophen (Tylenol) 325 MG tablet Take 2 tablets (650 mg) by mouth every 6 (six) hours if needed for pain. Under [place] law, monthly prescriptions (30 days) can be [...] or as directed by . 14 patch 10/28/2023 4 naloxone (Narcan) 4 mg/0.1 mL nasal spray 1. Give 1 spray in nostril for no/slow breathing or cannot wake after opioid use 2. Call 911 3. Repeat in other nostril if symptoms continue 1 each 10/28/2023 4 ondansetron (Zofran) 4 MG tablet Take 1 tablet (4 mg) by mouth every 6 (six) hours if needed for nausea or vomiting. 4 oxyCODONE (Roxicodone) 10 MG immediate release tablet Take 1 tablet (10 mg) by mouth every 4 (four) hours if needed for severe pain. 30 tablet 10/28/2023 4 pancrelipase, Rcu-Jcyu-Ifvj, (Creon) [id number] units capsule Take 2 capsules by mouth [...] encounter Miscellaneous Notes * Discharge Summary - Bouchra Leonard MD - 10/28/2023 2:20 PM EDT Hospitalization Admit Date/Time: 10/23/2023 3:39 AM Admitting Attending: Trevon Faust Discharge Date: 10/28/23 Discharge Attending Physician: Bouchra Leonard MD PCP name and Address: Lisa Foote, [place] [address] [address] Referring provider name and address: No referring provider defined for this encounter. Chief Concern, Brief History of Present Illness, and Hospital Course History of present illness: Rosibel Gayle is a 37 y.o. female with a relevant PMH of recurrent acute pancreatitis, gastric erosions, cholecystecomy in 2011, fibromyalgia, and GERD who presents with abdominal pain, nausea, and vomiting. She was hospitalized two weeks ago for acute pancreatitis. She has had numerous ED visits with similar symptoms. She has followed with a pain clinic in the past but reported to ER case management that she may not be able to resume care there. This morning, patient was sleeping when I rounded on her hallway bed in ED. Patient was arousable but drowsy and she complained of pain. States she has not kept anything down for past several days. States she is back in ED because she didn't do what she was supposed to do after getting home from hospital after last case of acute pancreatitis. At morning rounds she was upset about discussion of trying to wean her away from opioids for long-term management of pain despite us agreeing to use opioids to treat her pain during current admission. Per nursing, two minutes after being given IV morphine, she walked to cafeteria and outside to talk on phone. [facility] Hospital Course 10/23-10/27: Day of discharge events: Patient reported that her abdominal pain was similar throughout admission despite uptitrating pain meds. Eventually she was able to be weaned and we discharged her on 10/27 with oxycodone 10 mg PO Q4 PRN and pregabalin 200 PO BID. Patient did have pain on ROS and epigastric tenderness on exam so pain was deemed valid despite some opioid seeking behaviour. She was given a referral for Gastroenterology and level. 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 We also discussed possible obtain you repeat EGD, H pylori testing, testing from doing cirrhosis, outpatient fecal elastase testing. Also labs for tTG, vitamins a E and K are pending? Follow up with her outpatient provider to discuss these. She was instructedto appointment with her primary care doctor and stated she had 1 made for next week. In addition weinstructed her to go back to her pain clinic in [place] for continued management of her pain regimen. Reports that her will pick her up after discharge. Please see below for remainder of hospital course: Persistent epigastric pain and nausea, acute pain flare of chronic pancreatitis vs other etiologies Concern for opioid dependence - Pt presented with worsening epigastric pain and nausea causing poor PO intake - On admission, lipase and lactate wnl. - Pt without imaging evidence of chronic pancreatitis on previous imaging studies, however did havea previous fecal elastase level that was <10 - Pt has multiple hospitalizations and ED visits for uncontrolled pain. Previous discharge summaries reviewed-- there is concern for opioid dependence - Other etiologies that could be considered: Endometriosis, opioid hyperalgesia, gastroparesis - Started on duloxetine and Creon on this admission and also increased pregabalin dose - Extensively discussed with patient that opioids are not recommended for chronic pancreatitis PLAN - NPO until after MRCP (per MRI scheduling, she is going tonight) - Continue pain management with goal for opioid de-escalation. IV morphine 4mg q4h PRN --> q4mg q6h PRN. - Oxycodone to q6 PRN and IV morphine q6h PRN; patient not tolerating attempted further de-escalation, but emphasized that IV medications will not be available to her when she returns home and that she needs to be weaned off of IV opioids. - Pending vitamin studies - Continue anti-emetic regimen - Continue pregabalin, duloxetine, Creon - lidocaine patches and heat application - Outpatient follow-up with [facility], [employer], PCP, possibly pain clinic Recent miscarriage - Had a miscarriage s/p D&C 06/2023 - test negative on this hospital stay Marijuana use - Could be contributing to GI symptoms History of PUD - Continue daily PPI Obesity - Complicates care Surgeries and Procedures NONE Medication List .. acetaminophen 325 MG tablet Commonly known as: Tylenol Take 2 tablets (650 mg) by mouth every 6 (six) hours if needed for pain. Under [place] law, monthly prescriptions (30 days) can be refilled at 25 days and three-month prescriptions (90 days) at 80 days. Please contact the insurance company with questions if refills are denied. DULoxetine [address] capsule Commonly known as: Cymbalta Take 1 capsule (60 mg) by mouth 1 (one) time each day. Do not crush or chew. Start taking on: October 29, 2023 lidocaine 5 % patch Commonly known as: [...] hours if needed for nausea or vomiting. oxyCODONE 10 MG immediate release tablet Commonly known as: Roxicodone Take 1 tablet (10 mg) by mouth every 4 (four) hours if needed for severe pain. pancrelipase (Rpg-Qigd-Tifu) [id number] units capsule Commonly known as: Creon Take [...] by mouth 1 (one) time each day. Start taking on: October 29, 2023 pregabalin 200 MG capsule Commonly known as: Lyrica Take 1 capsule (200 mg) by mouth 2 (two) times a day. promethazine 25 MG tablet Commonly known as: Phenergan Take 1 tablet (25 mg) by mouth every 8 (eight) hours if needed for nausea or vomiting. senna 8.6 MG tablet Commonly known as: Senokot Take 1 tablet (8.6 mg) by mouth every night. Where to Get Your Medications These medications were sent to [facility] - [place], [place] - [address] [facility] [address] [facility] [address] [place] [id number] acetaminophen 325 MG tablet DULoxetine [address] capsule lidocaine 5 % patch naloxone 4 mg/0.1 mL nasal spray oxyCODONE 10 MG immediate release tablet pancrelipase (Zvh-Tnnp-Elha) [id number] units capsule polyethylene glycol 17 g packet pregabalin 200 MG capsule senna 8.6 MG tablet Discharge Diagnosis Medical Problems Active and Resolved Hospital Problems Hospital * (Principal) Abdominal pain, epigastric Post Discharge Instructions - Avoid acidic and spicy foods and NSAIDs - Follow-up with primary care physician in one week - Follow-up with referrals for GI physician and pain clinic Outpatient Follow-Up No future appointments. Test Results Pending At Discharge Pending Labs Order Current Status Tissue Transglutaminase (tTG) Ab, IgA (SO) In process Vitamin K In process Pertinent Physical Exam At Time of Discharge Physical Exam Constitutional: General: She is in acute distress. Appearance: She is obese. HENT: Mouth/Throat: Mouth: Mucous membranes are moist. Cardiovascular: Rate and Rhythm: Normal rate. Pulmonary: Effort: Pulmonary effort is normal. No respiratory distress. Abdominal: Palpations: Abdomen is soft. Tenderness: There is abdominal tenderness (epigastric area). Musculoskeletal: Right lower leg: No edema. Left lower leg: No edema. Skin: General: Skin is warm. Neurological: General: No focal deficit present. Mental Status: She is alert and oriented to person, place, and time. Psychiatric: Comments: Tearful Discharge Disposition/Condition Disposition: Home Condition: Stable (s/sx potential problems absent or manageable) I spent >30 minutes of patient care and instruction time in preparation for this discharge. * Hospital Course - Bouchra Leonard MD - 10/28/2023 1:38 PM EDT History of present illness: Rosibel Gayle is a 37 y.o. female with a relevant PMH of recurrent acute pancreatitis, gastric erosions, cholecystecomy in 2011, fibromyalgia, and GERD who presents with abdominal pain, nausea, and vomiting. She was hospitalized two weeks ago for acute pancreatitis. She has had numerous ED visits with similar symptoms. She has followed with a pain clinic in the past but reported to ER case management that she may not be able to resume care there. This morning, patient was sleeping when I rounded on her hallway bed in ED. Patient was arousable but drowsy and she complained of pain. States she has not kept anything down for past several days. States she is back in ED because she didn't do what she was supposed to do after getting home from hospital after last case of acute pancreatitis. At morning rounds she was upset about discussion of trying to wean her away from opioids for long-term management of pain despite us agreeing to use opioids to treat her pain during current admission. Per nursing, two minutes after being given IV morphine, she walked to cafeteria and outside to talk on phone. [facility] Hospital Course 10/23-10/27: Day of discharge events: Patient reported that her abdominal pain was similar throughout admission despite uptitrating pain meds. Eventually she was able to be weaned and we discharged her on 10/27 with oxycodone 10 mg PO Q4 PRN and pregabalin 200 PO BID. Patient did have pain on ROS and epigastric tenderness on exam so pain was deemed valid despite some opioid seeking behaviour. She was given a referral for Gastroenterology and level. 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 We also discussed possible obtain you repeat EGD, H pylori testing, testing from doing cirrhosis, outpatient fecal elastase testing. Also labs for tTG, vitamins a E and K are pending? Follow up with her outpatient provider to discuss these. She was instructedto appointment with her primary care doctor and stated she had 1 made for next week. In addition weinstructed her to go back to her pain clinic in [place] for continued management of her pain regimen. Reports that her will pick her up after discharge. Please see below for remainder of hospital course: Persistent epigastric pain and nausea, acute pain flare of chronic pancreatitis vs other etiologies Concern for opioid dependence - Pt presented with worsening epigastric pain and nausea causing poor PO intake - On admission, lipase and lactate wnl. - Pt without imaging evidence of chronic pancreatitis on previous imaging studies, however did havea previous fecal elastase level that was <10 - Pt has multiple hospitalizations and ED visits for uncontrolled pain. Previous discharge summaries reviewed-- there is concern for opioid dependence - Other etiologies that could be considered: Endometriosis, opioid hyperalgesia, gastroparesis - Started on duloxetine and Creon on this admission and also increased pregabalin dose - Extensively discussed with patient that opioids are not recommended for chronic pancreatitis PLAN - NPO until after MRCP (per MRI scheduling, she is going tonight) - Continue pain management with goal for opioid de-escalation. IV morphine 4mg q4h PRN --> q4mg q6h PRN. - Oxycodone to q6 PRN and IV morphine q6h PRN; patient not tolerating attempted further de-escalation, but emphasized that IV medications will not be available to her when she returns home and that she needs to be weaned off of IV opioids. - Pending vitamin studies - Continue anti-emetic regimen - Continue pregabalin, duloxetine, Creon - lidocaine patches and heat application - Outpatient follow-up with [facility], [employer], PCP, possibly pain clinic Recent miscarriage - Had a miscarriage s/p D&C 06/2023 - test negative on this hospital stay Marijuana use - Could be contributing to GI symptoms History of PUD - Continue daily PPI Obesity - Complicates care * Progress Notes - Cat Almeida RN - 10/28/2023 10:32 AM EDT Case Management Discharge Note Rosibel Gayle 37 y.o. female CSN: [id number] Admission: 10/23/2023 3:39 AM Primary Problem: Abdominal pain, epigastric Primary Funding Analyst: Primary Caregiver: Self Assistance Available at Discharge: Current Outpatient/Agency/Support Group: (N/A) Availability of Care Givers (#Hours): No assistance needed Family/Funding Analyst(s) Willingness Assessed to care for patient at home: Yes Family/Funding Analyst(s) Readiness Assessed to care for patient at home: Yes Housing Circumstances-Z Codes: Housing Circumstances (select all that apply): Low Income (101-300% Federal Poverty Guidlines) - Z596 Patient Referred to Financial or Community Resources: Financial Resources: (None) Community Resources: (None) Discharge Facility/Level of Care Needs: Discharge Facility/Level of Care Needs: 1-Home or Self Care Patient/Family Anticipated Services at Transition: Patient/Family Anticipated Services at Transition: none DME/Equipment Needed after Discharge: Equipment Currently Used at Home: none Equipment Needed After Discharge: (N/A) Readmission Within the Last 30 Days: Readmission Within the Last 30 Days: no previous admission in last 30 days Medicare Documentation: Medicare Second Notice?: No (Does not apply) Follow-up: No follow-up provider specified. Discharge Transportation: Transportation Anticipated: family or friend will provide Transportation Home at Discharge: Family/Friend will Provide What day is the transport expected?: 10/28/23 Follow Up Transport: Transportation Needed to Follow up Appoinments: Family/Friend will Provide Additional Comments: POC and discharge plans were discussed with 5 treatment team during morning rounds. Per MD attending, pt is medically ready for discharge home. RNCM met with patient to discuss discharge plans. Pt is a 37 y/o smoking female with a pMHx of anxiety, arthritis, depression, fibromyalgia, gastric erosions, GERD, HTN, intentional overdose, nicotine dependence, obesity and pancreatitis. Pt plans to be discharged home with her significant other and 3 children. Pt reports she will have transportation home with family. No needs for CM at this time. Will be available via secure chat tiltime of discharge. Cat Almeida RN [facility] Playground Supervisor * Care Plan - Dorys Mcmanus LPN - 10/28/2023 1:26 AM EDT Problem: Adult Inpatient Plan of Care Goal: Optimal Comfort and Wellbeing Outcome: Ongoing, Progressing Problem: Adult Inpatient Plan of Care Goal: Readiness for Transition of Care Outcome: Ongoing, Progressing Problem: Adult Inpatient Plan of Care Goal: Absence of Hospital-Acquired Illness or Injury Outcome: Ongoing, Progressing * Progress Notes - Julio César Richmond - 10/27/2023 3:52 PM EDT Subjective Rosibel said she threw up her food last night, has not eaten today. Still with epigastric pain. Has not had bowel movement since Thursday but denies constipation. States she wants dilaudid instead of morphine. Review of Systems Constitutional: Negative for fever. Respiratory: Negative for cough and shortness of breath. Cardiovascular: Negative for palpitations and leg swelling. Gastrointestinal: Positive for abdominal pain. Negative for constipation. Genitourinary: Negative for dysuria. Objective Physical Exam Constitutional: General: She is in acute distress. Appearance: She is obese. HENT: Mouth/Throat: Mouth: Mucous membranes are moist. Cardiovascular: Rate and Rhythm: Normal rate. Pulmonary: Effort: Pulmonary effort is normal. No respiratory distress. Abdominal: Palpations: Abdomen is soft. Tenderness: There is abdominal tenderness (epigastric area). Musculoskeletal: Right lower leg: No edema. Left lower leg: No edema. Skin: General: Skin is warm. Neurological: General: No focal deficit present. Mental Status: She is alert and oriented to person, place, and time. Psychiatric: Comments: Tearful Last Recorded Vitals Blood pressure (!) 140/88, pulse 76, temperature 36.6 ??C (97.8 ??F), resp. rate 18, height 1.651 m(5' 5 ), weight 97.5 kg (215 lb), SpO2 99%, not currently . Assessment/Plan Principal Problem: Abdominal pain, epigastric Rosibel Gayle is a 37 yo F with chronic pancreatitis who is admitted due to worsening epigastric painand nausea. Persistent epigastric pain and nausea, acute pain flare of chronic pancreatitis vs other etiologies Concern for opioid dependence - Pt presented with worsening epigastric pain and nausea causing poor PO intake - On admission, lipase and lactate wnl. - Pt without imaging evidence of chronic pancreatitis on previous imaging studies, however did havea previous fecal elastase level that was <10 - Pt has multiple hospitalizations and ED visits for uncontrolled pain. Previous discharge summaries reviewed-- there is concern for opioid dependence - Other etiologies that could be considered: Endometriosis, opioid hyperalgesia, gastroparesis - Started on duloxetine and Creon on this admission and also increased pregabalin dose - Extensively discussed with patient that opioids are not recommended for chronic pancreatitis PLAN - NPO until after MRCP (per MRI scheduling, she is going tonight) - Continue pain management with goal for opioid de-escalation. IV morphine 4mg q4h PRN --> q4mg q6h PRN. - Oxycodone to q6 PRN and IV morphine q6h PRN; patient not tolerating attempted further de-escalation, but emphasized that IV medications will not be available to her when she returns home and that she needs to be weaned off of IV opioids. - Pending vitamin studies - Continue anti-emetic regimen - Continue pregabalin, duloxetine, Creon - lidocaine patches and heat application - Outpatient follow-up with [facility], Air[employer], PCP, possibly pain clinic Recent miscarriage - Had a miscarriage s/p D&C 06/2023 - test negative on this hospital stay Marijuana use - Could be contributing to GI symptoms History of PUD - Continue daily PPI Obesity - Complicates care Diet. NPO --> advance as tolerated after MRCP DVT prophylaxis. Lovenox PT/OT. Home Disposition. Pending IV opioid discontinuation. Possibly tomorrow. Julio César Richmond, MS4 Cosigned by Bouchra Leonard MD at 10/27/2023 7:05 PM EDT Associated attestation - Bouchra Leonard MD - 10/27/2023 7:05 PM EDT Patient reports pain unchanged today. States it is radiating to the back. Reports her diarrhea has resolved. Reports found nausea and vomiting. Reports decreased by mouth intake for the last 3 days but has been drinking in the fluids. On exam epigastrium slightly tender on palpation. [facility] not to be nothing by mouth and we will place her nothing by mouth today andthey reported they can do her MRCP this evening. TTG, vitamins AEK still pending. Vitamin-D within normal limits. Reports Phenergan works well for her nausea and vomiting so we will change her to on central and Phenergan. Last day is also pending. We will advance her diet after MRCP is completed ton ight. Give her 1 time dose of oxycodone a 1 time dose of Toradol. Also added non opioid pain modalities including hot packs, cold packs, lidocaine patches. She was declining these however we informedher that she will need to use nonopioid modalities 1st and then switch to opioids if those are not working. Overall we discuss patient's pain regimen with this patient on multiple occasions today. We will wean down her pain regimen. We asked her she was to discharge today and we cutter operator asbestos shingle with the focus on pancreatitis and removal on discharge. She can also check a T4 as an outpatient with her primary care doctor. Goal is to discharge on 10/27. I saw and evaluated the patient with the medical/DIGITAL FORENSIC ANALYST/PA student. I discussed the case with the medical/DIGITAL FORENSIC ANALYST/PA student and agree with the findings and plan as documented. I personally performed the Examand Medical Decision Making. Bouchra Leonard MD Hospitalist Medicine Epic chat preferred * Progress Notes - Cat Almeida, RN - 10/27/2023 1:40 PM EDT Case Management Adult Initial Progress Note Rosibel Gayle 37 y.o. female CSN: [id number] Admission: 10/23/2023 3:39 AM Primary Problem: Abdominal pain, epigastric Playground Supervisor reviewed chart and spoke with patient to complete this Initial Case Management Assessment. PCP: Lisa Foote APRN Emergency Contact: Extended Emergency Contact Information Primary Emergency Contact: Asiya Flores [address]: [address] [place] [address] Mobile Relation: Mother Preferred language: [place] Assistant Grocery needed? No Secondary Emergency Contact: Napoleon Mixon Mobile Relation: Significant Other Preferred language: [place] Assistant Grocery needed? No Insurance: Primary Visit Coverage Payer Plan Sponsor Code Group Number Group Name ANTHEM MEDICAID ANTHEM MEDICAID [id number] Primary Visit Coverage Subscriber Subscriber ID Subscriber Name Subscriber SSN Subscriber Address [id number] ROSIBEL GAYLE [id number] [place] [address] Patient information: Primary Caregiver: Self Support System: Immediate family Daily Living Activities: Functional Status: Independent Living Arrangements: Children, Spouse/Significant other (Significant Other and 3 children) Type of Residence: Private residence [address] [address] Smoker in the Home?: No Current DME: Equipment Currently Used at Home: none Income Information: Income Source: Unemployed (941.00 Son's disability) Income/Expense Information: Income meets expenses Current Resources Utilized: Food [place] Housing Circumstances-Z Codes: Housing Circumstances (select all that apply): Low Income (101-300% Federal Poverty Guidlines) - Z596 Patient Referred to: Financial Resources: (None) Community Resources: (None) Anticipated Discharge Date: 10/28/2023 Patient's Discharge Goal: Patient/Family Anticipates Transition to: home, home with family Assistance Available at Discharge: Current Outpatient/Agency/Support Group: (N/A) Availability of Care Givers (#Hours): No assistance needed Discharge Transport: Transportation Anticipated: family or friend will provide Follow Up Transport: Transportation Needed to Follow up Appoinments: Family/Friend will Provide Home Health / Home Infusion / Outpatient Dialysis Services: Denied Living Will/Advance Directive/Power of Senior Business Consultant /Guardian: Unable to assess: No Have you reviewed your Advance Directive and is it valid for this stay?: Not applicable Advance Directive: Not applicable Information Provided on Healthcare Directives: No Pre-existing DNR/DNI Order: No Patient Requests Assistance: No Additional Comments: POC and discharge plans were discussed with 5 treatment team during morning rounds. Per MD attending, pt is not medically ready for discharge today but plans are to discharge tomorrow. RNCM spoke with patient at bedside to complete IA. Pt lives at home in a one store private residence with her significant other and 3 children. 4 steps to enter inside the home. Independent at baseline. Denies any DME, HH, HI, oxygen or dialysis at baseline. Pt states that she is unemployed and stays home to take care of her disabled son who has autism. She currently is unable to drive d/t being on a suspended license. Pt states that she will have transportation home provided by family. PCP is Lisa Foote APRN. [facility] [place] is preferred [facility]. Pt reports that she does smoke1/2 ppd. Will continue to follow for all discharge needs. Cat Almeida RN [facility] Playground Supervisor * Consults - Chanell Smith, CHAU - 10/27/2023 11:52 AM EDT Adult Nutrition Evaluation Note Rosibel Gayle 37 y.o. female CSN: [id number] Room/Bed 531/531A Nutrition evaluation type: assessment Reason for evaluation: nurse consult- MST score 2 Hospital course: 37 yo F presents with N/V and abdominal pain in setting of recently dx chronic pancreatitis. Past medical/ surgical history: Past Medical History: Diagnosis Date Anxiety Arthritis Depression Fibromyalgia Gastric erosions 04/19/2021 GERD (gastroesophageal reflux disease) Hypertension Intentional overdose ([facility]) 12/20/2021 Nicotine dependence Obesity Pancreatitis Past Surgical History: Procedure Laterality Date CHOLECYSTECTOMY DILATION AND CURETTAGE OF UTERUS ERCP ESOPHAGOGASTRODUODENOSCOPY HAND SURGERY Right ORAL SURGERY Social history: Additional comments: 10/26: Visited pt in room. Pt has not eaten any food in ~ 2 days due to fear of N/V. She states she lost ~30 pounds in the last 2 months. She denied difficulty chewing or swallowing. She is agreeable to trying Boost Breeze orange. She is also agreeable to DHT placement if she cannot tolerate any oral intake. Vitals and Basic Assessment: BP: 127/88 Temp: 36.6 ??C (97.9 ??F) Oxygen Therapy: None (Room air) [place] Coma Scale Score: 15 Scott Scale Score: 21 Last BM Date: 10/23/23 GI Symptoms: Nausea Allergies: NKFA Medications: acetaminophen, 650 mg, Oral, q4h INO DULoxetine, 60 mg, Oral, Daily enoxaparin, 40 mg, Subcutaneous, Daily pancrelipase (Gtp-Lszd-Dkjn), 2 capsule, Oral, TID with meals pantoprazole, 40 mg, Oral, Daily polyethylene glycol, 17 g, Oral, Daily pregabalin, 200 mg, Oral, BID senna, 8.6 mg, Oral, Nightly Labs: Lab Results Component Value Date GLUCOSE 92 10/26/2023 CALCIUM 8.7 (L) 10/26/2023 NA 139 10/26/2023 K 3.8 10/26/2023 CO2 27 10/26/2023 CL 105 10/26/2023 BUN 6 (L) 10/26/2023 CREATININE 0.64 10/26/2023 PHOS 4.1 10/26/2023 MG 1.8 (L) 10/26/2023 HGBA1C 5.2 11/21/2022 Anthropometrics: Height: 165.1 cm (5' 5 ) Weight: 97.5 kg (215 lb) BMI (Calculated): 35.78 Weight Evaluation: Obese-Class 2 (BMI 35-39.9) [place] Body Weight (kg): 56.8 Percent [place] Body Weight: 171 Adjusted Body Weight (kg): 67 Wt Readings from Last 20 Encounters: 10/23/23 97.5 kg (215 lb) 10/19/23 96.5 kg (212 lb 11.9 oz) 10/18/23 96.5 kg (212 lb 11.9 oz) 10/13/23 96.5 kg (212 lb 11.9 oz) 10/07/23 94.2 kg (207 lb 10.8 oz) 07/21/23 99.2 kg (218 lb 11.1 oz) 07/03/23 102 kg (225 lb 12 oz) 06/15/23 99.8 kg (220 lb 0.3 oz) 06/14/23 97.1 kg (214 lb) 06/13/23 97.5 kg (214 lb 15.2 oz) 06/12/23 97 kg (213 lb 13.5 oz) 06/04/23 96.2 kg (212 lb 1.3 oz) 04/22/23 102 kg (224 lb 13.9 oz) 04/14/23 102 kg (225 lb 1.4 oz) 04/09/23 104 kg (229 lb 11.5 oz) 04/08/23 105 kg (230 lb 9.6 oz) 04/02/23 103 kg (227 lb 11.8 oz) 03/30/23 105 kg (232 lb) 03/29/23 106 kg (232 lb 12.9 oz) 03/26/23 105 kg (232 lb 5.8 oz) Per EMR, pt lost 7.5 kg in 7 months (7%) Estimated Needs: Metabolic Cart Study Results: Current Nutrition Intake: Diet Supplements: None Diet Order: Adult Diet Diet Texture: Full Liquid Fat Restriction: Low fat Percent Meals Eaten (%): no documentation Diet Experience and Nutrition History: Diet Education Provided: Will monitor Pertinent home medications: Reviewed Oriental [employer] needs: Nutrition Focused Physical Exam: Physical exam performed on (date): 10/26 visual; pt became tearful during visit Temples (muscles): None Clavicle (muscle): None Shoulder (muscle): None Orbital (fat): None Weight Loss: 14% in 2 months per pt report Assessment of Malnutrition: Malnutrition Identified: Additional Information Needed Nutrition Problem: Inadequate oral intake related to N/V, abdominal pain as evidenced by poor PO intakes. Status of Nutrition Diagnosis: New Nutrition Interventions and Recommendations: - Continue Full Liquids, advance as tolerated to Regular - Low Fat modification - Add Boost Breeze BID - Record PO intake in flowsheets - If pt does tolerate PO intake, rec DHT placement Nutrition Monitoring and Goals: - Tolerate PO intake >75% - NFPE as able next follow up - Will monitor weight, skin integrity, PO intake/enteral infusion, labs, I&O, and follow up perdepartment acuity. Acuity Level: [address] * Care Plan - Lorena Lucas - 10/27/2023 11:26 AM EDT Problem: Adult Inpatient Plan of Care Goal: Plan of Care Review Outcome: Ongoing, Progressing Flowsheets (Taken 10/27/2023 1124) Progress: improving Plan of Care Reviewed With: patient Goal: Patient-Specific Goal (Individualized) Outcome: Ongoing, Progressing Flowsheets (Taken 10/27/2023 0800) Patient/Family-Specific Goals (Include Timeframe): pt will be free of falls and injury throughout shift Individualized Care Needs: safety Anxieties, Fears or Concerns: pain management Goal: Absence of Hospital-Acquired Illness or Injury Outcome: Ongoing, Progressing Goal: Optimal Comfort and Wellbeing Outcome: Ongoing, Progressing * Care Plan - Dorys Mcmanus LPN - 10/27/2023 2:25 AM EDT Problem: Adult Inpatient Plan of Care Goal: Absence of Hospital-Acquired Illness or Injury Outcome: Ongoing, Progressing Problem: Adult Inpatient Plan of Care Goal: Optimal Comfort and Wellbeing Outcome: Ongoing, Progressing Problem: Adult Inpatient Plan of Care Goal: Readiness for Transition of Care Outcome: Ongoing, Progressing * Progress Notes - Marly Curran MD - 10/26/2023 2:41 PM EDT Subjective Rosibel said she threw up her food last night, did not eat much during breakfast. Still with epigastric pain. Review of Systems Constitutional: Negative for fever. Respiratory: Negative for cough and shortness of breath. Cardiovascular: Negative for palpitations and leg swelling. Objective Physical Exam Constitutional: General: She is in acute distress. Appearance: She is obese. HENT: Mouth/Throat: Mouth: Mucous membranes are moist. Cardiovascular: Rate and Rhythm: Normal rate. Pulmonary: Effort: Pulmonary effort is normal. No respiratory distress. Abdominal: Palpations: Abdomen is soft. Tenderness: There is abdominal tenderness (epigastric area). Musculoskeletal: Right lower leg: No edema. Left lower leg: No edema. Skin: General: Skin is warm. Neurological: General: No focal deficit present. Mental Status: She is alert and oriented to person, place, and time. Psychiatric: Comments: tearful Last Recorded Vitals Blood pressure 131/86, pulse 73, temperature 36.4 ??C (97.5 ??F), temperature source Oral, resp. rate 16, height 1.651 m (5' 5 ), weight 97.5 kg (215 lb), SpO2 97%, not currently . Assessment/Plan Principal Problem: Abdominal pain, epigastric Rosibel Gayle is a 37 yo F with chronic pancreatitis who is admitted due to worsening epigastric painand nausea. Persistent epigastric pain and nausea, acute pain flare of chronic pancreatitis vs other etiologies Concern for opioid dependence - Pt presented with worsening epigastric pain and nausea causing poor PO intake - On admission, lipase and lactate wnl. - Pt without imaging evidence of chronic pancreatitis on previous imaging studies, however did havea previous fecal elastase level that was <10 - Pt has multiple hospitalizations and ED visits for uncontrolled pain. Previous discharge summaries reviewed-- there is concern for opioid dependence - Other etiologies that could be considered: Endometriosis, opioid hyperalgesia, gastroparesis - Started on duloxetine and Creon on this admission and also increased pregabalin dose - Extensively discussed with patient that opioids are not recommended for chronic pancreatitis PLAN - De-escalating diet from regular to full liquid low fat - Continue pain management with goal for opioid de-escalation. IV morphine 4mg q4h PRN --> q4mg q6h PRN. - I was clear with Rosibel today that the daily goal is to wean down on opioids. - Tomorrow, can move oxycodone to q6-8h PRN and IV morphine further to q8h PRN - MRCP ordered to assess for new structural changes - Pending vitamin studies - Continue anti-emetic regimen - Continue pregabalin, duloxetine, Creon - Outpatient follow-up with [facility], [employer], PCP Recent miscarriage - Had a miscarriage s/p D&C 06/2023 - test negative on this hospital stay Marijuana use - Could be contributing to GI symptoms History of PUD - Continue daily PPI Obesity - Complicates care Diet. Full liquid --> advance as tolerated DVT prophylaxis. Lovenox PT/OT. Home Disposition. Pending IV opioid discontinuation * Care Plan - oLrena Lucas - 10/26/2023 11:50 AM EDT Problem: Adult Inpatient Plan of Care Goal: Plan of Care Review Outcome: Ongoing, Progressing Flowsheets (Taken 10/26/2023 1149) Progress: no change Plan of Care Reviewed With: patient Goal: Patient-Specific Goal (Individualized) Outcome: Ongoing, Progressing Flowsheets (Taken 10/26/2023 0800) Patient/Family-Specific Goals (Include Timeframe): pt will reamin free of falls and injury throughout shift Individualized Care Needs: ongoing Anxieties, Fears or Concerns: pain management Goal: Absence of Hospital-Acquired Illness or Injury Outcome: Ongoing, Progressing Goal: Optimal Comfort and Wellbeing Outcome: Ongoing, Progressing * Care Plan - Dorys Mcmanus LPN - 10/26/2023 1:17 AM EDT Problem: Adult Inpatient Plan of Care Goal: Absence of Hospital-Acquired Illness or Injury Outcome: Ongoing, Progressing Problem: Adult Inpatient Plan of Care Goal: Optimal Comfort and Wellbeing Outcome: Ongoing, Progressing Problem: Adult Inpatient Plan of Care Goal: Readiness for Transition of Care Outcome: Ongoing, Progressing * Care Plan - Zaida Soria RN - 10/25/2023 6:41 PM EDT Problem: Adult Inpatient Plan of Care Goal: Plan of Care Review Outcome: Ongoing, Progressing Flowsheets (Taken 10/25/2023 1840) Progress: improving Plan of Care Reviewed With: patient Goal: Patient-Specific Goal (Individualized) Outcome: Ongoing, Progressing Flowsheets (Taken 10/24/2023 2000 by Sakshi King, RN) Patient/Family-Specific Goals (Include Timeframe): Pt will remain free of falls throughout this shift Individualized Care Needs: safety Anxieties, Fears or Concerns: none Goal: Absence of Hospital-Acquired Illness or Injury Outcome: Ongoing, Progressing Goal: Optimal Comfort and Wellbeing Outcome: Ongoing, Progressing Goal: Readiness for Transition of Care Outcome: Ongoing, Progressing * Progress Notes - Marly Curran MD - 10/25/2023 2:53 PM EDT Subjective Appears more comfortable today than yesterday. Still endorsing epigastric pain at 8/10 and nausea. No fever. Has not had a bowel movement. Deferred doses of ketamine as she states it makes her feel loopy Review of Systems Constitutional: Negative for fever. Respiratory: Negative for cough and shortness of breath. Cardiovascular: Negative for palpitations and leg swelling. Objective Physical Exam Constitutional: General: She is in acute distress. Appearance: She is obese. HENT: Mouth/Throat: Mouth: Mucous membranes are moist. Cardiovascular: Rate and Rhythm: Normal rate. Pulmonary: Effort: Pulmonary effort is normal. No respiratory distress. Abdominal: Palpations: Abdomen is soft. Tenderness: There is abdominal tenderness (epigastric area). Musculoskeletal: Right lower leg: No edema. Left lower leg: No edema. Skin: General: Skin is warm. Neurological: General: No focal deficit present. Mental Status: She is alert and oriented to person, place, and time. Psychiatric: Comments: tearful Last Recorded Vitals Blood pressure 120/82, pulse 85, temperature 36.6 ??C (97.8 ??F), temperature source Oral, resp. rate 18, height 1.651 m (5' 5 ), weight 97.5 kg (215 lb), SpO2 99%, not currently . Assessment/Plan Principal Problem: Abdominal pain, epigastric Rosibel Gayle is a 37 yo F with chronic pancreatitis who is admitted due to worsening epigastric painand nausea. Acute pain flare of chronic pancreatitis Concern for opioid dependence - Pt presented with worsening epigastric pain and nausea causing poor PO intake - On admission, lipase and lactate wnl. - Pt without imaging evidence of chronic pancreatitis, however did have a previous fecal elastase level that was <10 - Pt has multiple hospitalizations and ED visits for uncontrolled pain. Previous discharge summaries reviewed-- there is concern for opioid dependence - Other etiologies that could be considered: Endometriosis, opioid hyperalgesia, gastroparesis - Started on duloxetine on this admission and also increased pregabalin dose - Extensively discussed with patient that opioids are not recommended for chronic pancreatitis PLAN - Continue pain management of IV morphine 4mg q4h PRN and oxycodone 10mg q4h PRN-- will stay the course, but discussed with patient that we will need to wean down tomorrow. Goal to completely wean off opioids - If still in pain tomorrow, may need imaging - Pending vitamin studies, repeat fecal elastase - Continue anti-emetic regimen - Continue pregabalin, currently at max dose - Continue duloxetine - Outpatient follow-up with [facility], [employer], PCP Recent miscarriage - Had a miscarriage s/p D&C 06/2023 - test negative on this hospital stay Marijuana use - Could be contributing to GI symptoms History of PUD - Continue daily PPI Obesity - Complicates care Marly Curran MD * Care Plan - Sakshi King RN - 10/25/2023 5:55 AM EDT Problem: Adult Inpatient Plan of Care Goal: Optimal Comfort and Wellbeing Outcome: Ongoing, Progressing Goal: Readiness for Transition of Care Outcome: Ongoing, Progressing * H&P - Julio César Richmond - 10/24/2023 3:03 PM EDTAssociated Order(s): Consult to Hospital Medicine Images from the original note were not included. Consult to Hospital Medicine Consult performed by: Julio César Richmond Consult ordered by: Chad Mcclure MD Hospital Medicine History & Physical Subjective 10/23/2023 Chief Complaint: Chief Complaint Patient presents with Abdominal Pain History Of Present Illness Rosibel Gayle is a 37 y.o. female with a relevant PMH of recurrent acute pancreatitis, gastric erosions, cholecystecomy in 2011, fibromyalgia, and GERD who presents with abdominal pain, nausea, and vomiting. She was hospitalized two weeks ago for acute pancreatitis. She has had numerous ED visits with similar symptoms. She has followed with a pain clinic in the past but reported to ER case management that she may not be able to resume care there. This morning, patient was sleeping when I rounded on her hallway bed in ED. Patient was arousable but drowsy and she complained of pain. States she has not kept anything down for past several days. States she is back in ED because she didn't do what she was supposed to do after getting home from hospital after last case of acute pancreatitis. At morning rounds she was upset about discussion of trying to wean her away from opioids for long-term management of pain despite us agreeing to use opioids to treat her pain during current admission. Per nursing, two minutes after being given IV morphine, she walked to cafeteria and outside to talk on phone. Past Medical History Past Medical History: Diagnosis Date Anxiety Arthritis Depression Fibromyalgia Gastric erosions 04/19/2021 GERD (gastroesophageal reflux disease) Hypertension Intentional overdose ([facility]) 12/20/2021 Nicotine dependence Obesity Pancreatitis Surgical History Past Surgical History: Procedure Laterality Date CHOLECYSTECTOMY DILATION AND CURETTAGE OF UTERUS ERCP ESOPHAGOGASTRODUODENOSCOPY HAND SURGERY Right ORAL SURGERY I have reviewed this patient's past surgical history Family History Family History Problem Relation Name [...] Marijuana Comment: a few times a month Travel History Travel Screening Question Response Have you been in contact with someone who was sick? No / Unsure Do you have any of the following new or worsening symptoms? None of these Have you traveled internationally or domestically in the last month? No Travel History Travel since 09/23/23 No documented travel since 09/23/23 Immunizations Immunization History Administered Date(s) Administered Influenza, injectable, quadrivalent, preservative free 11/21/2019, 12/27/2020, 01/20/2022, 02/05/2023 Moderna COVID-19 Vaccine (Fishing Rod Mechanic) 12+ years 06/11/2020, 07/05/2020 Pfizer-BioNTech COVID-19 Vaccine (Purple Cap) 12+ 02/10/2021 Tdap 06/25/2021 Allergies Compazine [prochlorperazine], Droperidol, and Tramadol Home Medications Current Outpatient Medications Medication Instructions cholecalciferol (VITAMIN D-3) 5,000 Units, Oral, Daily cyanocobalamin (VITAMIN B-12) 1,000 mcg, Oral, Daily doxylamine (UNISOM) 25 mg, Oral, Nightly PRN DULoxetine (CYMBALTA) 60 mg, Oral, Daily, Do not crush or chew. ibuprofen 800 mg, Oral, Every 6 hours PRN Kloxxado 8 mg, Nasal, As needed Lidocaine (HM Lidocaine Patch) 4 % patch 1 patch, Apply externally, 2 times daily PRN LORazepam (ATIVAN) 2 mg, Oral, 2 times daily Melatonin 10 mg, Oral, Nightly PRN ondansetron ODT (ZOFRAN-ODT) 4 mg, Oral, Every 6 hours PRN oxyCODONE (ROXICODONE) 5 mg, Oral, Every 8 hours PRN pancrelipase, Dbv-Telh-Rviw, (Creon) 6000-46424 units capsule 1 capsule, Oral, 3 times daily with meals pantoprazole (PROTONIX) 40 mg, Oral, Daily, Do not crush, chew, or split. pregabalin (LYRICA) 300 mg, Oral, 2 times daily multivitamin (Trinatal Rx 1) 60-1 MG tablet tablet 1 tablet, Oral, Daily promethazine (PHENERGAN) 25 mg, Oral, Every 6 hours PRN promethazine (PHENERGAN) 25 mg, Oral, Every 8 hours PRN pyridoxine (B-6) 50 mg, Oral, Daily PRN sucralfate (CARAFATE) 1 g, Oral, Every 6 hours scheduled Review of Systems Review of Systems Constitutional: Positive for appetite change. Negative for fever. Respiratory: Negative for cough and shortness of breath. Cardiovascular: Negative for chest pain. Gastrointestinal: Positive for abdominal pain, diarrhea, nausea and vomiting. Genitourinary: Negative for difficulty urinating and dysuria. Neurological: Negative for light-headedness and headaches. Psychiatric/Behavioral: Positive for agitation. The patient is nervous/anxious. Objective Last Recorded Vitals Blood pressure 130/89, pulse 62, temperature 36.7 ??C (98.1 ??F), temperature source Oral, resp. rate 18, height 1.651 m (5' 5 ), weight 97.5 kg (215 lb), SpO2 95%, not currently . Physical Exam Constitutional: Appearance: She is obese. Pulmonary: Effort: Pulmonary effort is normal. Neurological: Mental Status: She is alert. Psychiatric: Comments: Appears agitated and upset. Physical exam limited by patient agitation. Data 10/23 Lactate 0.8 Vit D 21 IMAGING (past 24h): Assessment/Plan Assessment/ Plan Principal Problem: Abdominal pain, epigastric Rosibel Sheyla Gayle is a 37 y.o. female with PMH as per above who presents with abdominal pain, nausea, and vomiting for several days after recent hospitalization for acute pancreatitis. # Acute on chronic Abdominal Pain # unclear history of chronic pancreatitis - per nursing, patient wanted to go to cafeteria - appetite returning - patient adamant about receiving IV opioids for pain - recent ED visit for acute pancreatitis two weeks ago - patient states she has chronic pancreatitis; from chart review, can see numerous Cts (most recentJan 2023) that do not find sequela of chronic pancreatitis or other notable abdominal findings - fecal elastase 04/18/2021 <10 Plan: - p.r.n. antiemetics, Phenergan and Zofran available -pain medication, morphine preferred, q.4 p.r.n.; added ketamine, home pregabalin, duloxetine - consider alternatives to opioids for long-term pain control -frequent reassessment given limited physical exam this morning - work up possible chronic pancreatitis with repeat fecal elastase and fat- soluble vitamins # nausea/vomiting -p.r.n. Zofran and Phenergan available - full fat-restricted diet available # GERD - pantoprazole 40 mg daily Fluids: PO DVT Ppx: PLOV Diet: Regular diet Code status: Prior Dispo: Admit to Floor Julio César Richmond MS4 Cosigned by Marly Curran MD at 10/25/2023 3:41 PM EDT Associated attestation - Marly Curran MD - 10/25/2023 3:41 PM EDT I saw and evaluated the patient with the medical/DIGITAL FORENSIC ANALYST/PA student. I discussed the case with the medical/DIGITAL FORENSIC ANALYST/PA student and agree with the findings and plan as documented. I personally performed the Examand Medical Decision Making. * Significant Event - Trevon Faust MD - 10/23/2023 11:44 PM EDT Hospital medicine was consulted to transfer care to the inpatient service. Ms Gayle is a 37 yo withchronic pancreatitis who also has chronic pain associated with this and has presented multiple times to the ER here and elsewhere because of pain. She has followed with a pain clinic in the past but reported to ER case management that she may not be able to resume care there. She presents for an exacerbation of her pain, which she reports happen intermittently and was initially admitted to ED obs for management. She was not having improvement in her symptoms over the course of the afternoon and thus was transferred to medicine. On my exam she is eating jello; she reports her pain is improved after a recent dose of medication. She denies any vomiting since being admitted. She has had overall fairly minimal requirements beyond her baseline pain regimen that she is on as an outpatient. Her vital signs appear relatively normal without tachycardia. She is sleepy but arousable on my exam and answers questions appropriately. Abdomen appears distended but is soft, thereis mild tenderness to deep palpation of the epigastrium. Her labs are unremarkable. Reviewing her chart it appears that over the course of many visits to our ER and other EP[facility] linked ER's she's had nearly 20 CT scans of the abdomen without much pathology noted in her pancreas or biliary system. Herpain is of no different character or quality than has been consistent with her previous exacerbations and agree that no further imaging - in the setting of normal lab work and no evolution of her symptoms - is warranted at this time. Plan to continue her home oxycodone with increased dosing frequency as needed. Will add a bowel regimen as well. Continue ketorolac IV for breakthrough pain. Continue IVF's. Advance diet as tolerated. Can discuss with case management/social work about getting patient plugged in to a chronic pain clinic which she will need to be compliant with moving forward given her chronic dependence on opiate medications to control her symptoms. * Progress Notes - Diane Aalrcon RN - 10/23/2023 12:40 PM EDT ED Case Management Adult Progress Note Rosibel Gayle 37 y.o. female CSN: [id number] Admission: 10/23/2023 3:39 AM Chief Complaint Patient presents with Abdominal Pain Anticipated Discharge Date: TBD Additional Comments: Met with patient at bedside explained role of RNCM, patient agreeable to conversation. Verified demographic information. Patient states she has a ride home upon discharge. Pt is current with PCP. She states she has seen a Pain Management provider in [facility], Dr. Daniels. She states she does not know if she can resume her care with them. We discussed the possibility of being referred to IVP Clinic if she cannot return there, she was agreeable to this. ED provider notified so referral can be placed. Pt verbalized no other CM needs at this time, will cont to follow as needed. Diane Alarcon RN * H&P - Rod Whalen MD - 10/23/2023 8:36 AM EDT Images from the original note were not included. Chief Concern & History Of Present Illness Rosibel Gayle is a 37 y.o. female presenting with abdominal pain, nausea, vomiting in the setting of recently diagnosed chronic pancreatitis. This patient has a history of gastroesophageal reflux disease and fibromyalgia. In 2011 she had a cholecystectomy, in 2018 she had an ERCP done after a gallstone caused gallstone pancreatitis. Since then she has had frequent recurrent bouts of pancreatitis that she reports are increasing in severity and frequency. This most recent bout began 2 weeks ago, she was been to several emergency departments where the patient refused a CT scan because her symptoms were so easily recognizable to her. Each time she was treated with pain control, antiemetics, fluid hydration. Her symptoms have mildly improved, however they remained severe, she was not been able to tolerate any oral intake for the last 4 days. Past Medical History She has a past medical history of Anxiety, Arthritis, Depression, Fibromyalgia, Gastric erosions (04/19/2021), GERD (gastroesophageal reflux disease), Hypertension, Intentional overdose ([facility]) (12/20/2021), Nicotine dependence, Obesity, and Pancreatitis. Surgical History She has a past surgical history that includes Cholecystectomy; ERCP; Esophagogastroduodenoscopy; Hand surgery (Right); Dilation and curettage of uterus; and oral surgery. Family History Family History Problem Relation Name Age of Onset Hypertension Mother Coronary artery disease Father Lung cancer Maternal Grandmother Coronary artery disease Maternal Grandfather Coronary artery disease Paternal Grandfather Colon cancer Other Social History She reports that she has been smoking cigarettes. She has a 10 pack-year smoking history. She has never used smokeless tobacco. She reports that she does not currently use alcohol. She reports current drug use. Drug: Marijuana. Occupational History none Occupational Exposure Concern Occupational Exposure No Employer: No address on file. Travel History Relevant International Travel History: Travel Screening Question Response Have you been in contact with someone who was sick? No / Unsure Do you have any of the following new or worsening symptoms? None of these Have you traveled internationally or domestically in the last month? No Travel History Travel since 09/22/23 No documented travel since 09/22/23 Immunizations not reviewed VACCINE/DOSE DATE DATE DATE DATE Flu 11/21/2019 12/27/2020 01/20/2022 02/05/2023 Tetanus 06/25/2021 Pneumovax Shingles Allergies Compazine [prochlorperazine], Droperidol, and Tramadol Medications Current Facility-Administered Medications Medication Dose Route Frequency Provider Last Rate Last Admin ketorolac (Toradol) injection 15 mg 15 mg Intravenous q6h PRN Rod Whalen MD lactated Ringer's infusion 146 mL/hr Intravenous Continuous Rod Whalen MD 146 mL/hr at 10/23/23 0805 146 mL/hr at 10/23/23 0805 morphine PF 4 mg 4 mg Intravenous q4h PRN Rod Whalen MD 4 mg at 10/23/23 0830 promethazine (Phenergan) suppository 12.5 mg 12.5 mg Rectal q6h PRN Rod Whalen MD Or ondansetron (Zofran) injection 4 mg 4 mg Intravenous q6h PRN Rod Whalen MD pregabalin (Lyrica) capsule 100 mg 100 mg Oral TID Rod Whalen MD 100 mg at 10/23/23 0805 Current Outpatient Medications Medication Sig Dispense Refill cholecalciferol (Vitamin D3) 125 MCG (5000 UT) capsule Take 1 capsule (5,000 Units) by mouth 1 (one) time each day. cyanocobalamin 1000 MCG tablet Take 1 tablet (1,000 mcg) by mouth 1 (one) time each day. doxylamine (Unisom) 25 MG tablet Take 1 tablet (25 mg) by mouth at night if needed for nausea. 30 tablet 0 DULoxetine (Cymbalta) [address] capsule Take 1 capsule (60 mg) by mouth 1 (one) time each day. Do not crush or chew. 30 capsule 0 ibuprofen 800 MG tablet Take 1 tablet (800 mg) by mouth every 6 (six) hours if needed for mild pain. Lidocaine (HM Lidocaine Patch) 4 % patch Apply 1 patch topically 2 (two) times a day if needed (Left shoulder). LORazepam (Ativan) 2 MG tablet Take 1 tablet (2 mg) by mouth 2 (two) times a day. Melatonin 10 MG capsule Take 10 mg by mouth at night if needed (for sleep). naloxone (Kloxxado) 8 mg/0.1 mL nasal spray 1. Give 1 spray in nostril for no/slow breathing or cannot wake after opioid use 2. Call 911 3. Repeat in other nostril if symptoms continue 1 each 0 ondansetron ODT (Zofran-ODT) 4 MG disintegrating tablet Take 1 tablet (4 mg) by mouth every 6 (six)hours if needed for nausea or vomiting. 12 tablet 0 oxyCODONE (Roxicodone) 5 MG immediate release tablet Take 1 tablet (5 mg) by mouth every 8 (eight) hours if needed (pain). 4 tablet 0 pancrelipase, Psk-Xnsp-Xgmx, (Creon) 6000-23779 units capsule Take 1 capsule by mouth 3 (three) times a day with meals. pantoprazole (Protonix) 40 MG EC tablet Take 1 tablet (40 mg) by mouth 1 (one) time each day. Do not crush, chew, or split. pregabalin (Lyrica) 300 MG capsule Take 1 capsule (300 mg) by mouth 2 (two) times a day. multivitamin (Trinatal Rx 1) 60-1 MG tablet tablet Take 1 tablet by mouth 1 (one) time each day. 30 tablet 0 promethazine (Phenergan) 25 MG tablet Take 1 tablet (25 mg) by mouth every 6 (six) hours if needed for nausea or vomiting. promethazine (Phenergan) 25 MG tablet Take 1 tablet (25 mg) by mouth every 8 (eight) hours if needed for nausea or vomiting. 21 tablet 0 pyridoxine (B-6) 50 MG tablet Take 1 tablet (50 mg) by mouth 1 (one) time each day if needed (nausea, vomiting). 30 tablet 0 sucralfate (Carafate) 1 GM/10ML suspension Take 10 mL (1 g) by mouth every 6 (six) hours. Review of Systems Physical Exam Constitutional: General: She is in acute distress. Appearance: She is well-developed. HENT: Head: Normocephalic. Eyes: Pupils: Pupils are equal, round, and reactive to light. Cardiovascular: Rate and Rhythm: Normal rate and regular rhythm. Pulmonary: Effort: Pulmonary effort is normal. Abdominal: General: There is no distension. There are no signs of injury. Palpations: Abdomen is soft. Tenderness: There is abdominal tenderness in the epigastric area. Skin: General: Skin is warm and dry. Neurological: General: No focal deficit present. Mental Status: She is alert. Psychiatric: Mood and Affect: Mood normal. Last Recorded Vitals Blood pressure 139/79, pulse 76, temperature 36.9 ??C (98.4 ??F), resp. rate 20, height 1.651 m (5'5 ), weight 97.5 kg (215 lb), SpO2 98%, not currently . Relevant Results Results for orders placed or performed during the hospital encounter of 10/23/23 CBC and Differential Result Value Ref Range WBC Count 4.82 3.70 - 10.30 10*3/uL RBC Count 4.69 3.90 - 5.20 10*6/uL HGB 11.7 11.2 - 15.7 g/dL HCT 36.7 34.0 - 45.0 % Platelet Count 247 155 - 369 10*3/uL MCV 78 (L) 79 - 98 fL MCH 24.9 (L) 26.0 - 32.0 pg MCHC 31.9 30.7 - 35.5 g/dL RDW 17.4 (H) 11.5 - 14.5 % MPV 9.8 8.8 - 12.5 fL nRBC 0.0 <=0.0 per 100 WBCs Differential Type Automated Neutrophils % 62.0 % Lymphocytes % 31.0 % Monocytes % 4.0 % Eosinophils % 2.0 % Basophils % 1.0 % Immature Granulocytes % 0.0 % Neutrophils Absolute 3.02 1.60 - 6.10 10*3/uL Lymphocytes Absolute 1.47 1.20 - 3.90 10*3/uL Monocytes Absolute 0.20 (L) 0.30 - 0.90 10*3/uL Eosinophils Absolute 0.08 0.00 - 0.50 10*3/uL Basophils Absolute 0.03 0.00 - 0.10 10*3/uL Immature Granulocytes Absolute 0.02 0.00 - 0.06 10*3/uL CMP Result Value Ref Range Glucose, Plasma 85 74 - 99 mg/dL BUN, Plasma 4 (L) 7 - 21 mg/dL Creatinine, Plasma 0.51 (L) 0.60 - 1.10 mg/dL BUN/Creatinine Ratio 8 Sodium, Plasma 140 136 - 145 mmol/L Potassium, Plasma 3.5 (L) 3.7 - 4.8 mmol/L Chloride, Plasma 103 97 - 107 mmol/L CO2, Plasma 19 (L) 22 - 29 mmol/L Anion Gap 18 (H) 6 - 16 mmol/L Total Calcium, Plasma 9.9 8.9 - 10.2 mg/dL Total Protein 7.7 6.3 - 7.9 g/dL Albumin, Plasma 4.8 3.5 - 5.2 g/dL AST, Plasma 25 10 - 35 U/L ALT, Plasma 18 10 - 35 U/L Alkaline Phosphatase, Plasma 113 (H) 35 - 104 U/L Total Bilirubin, Plasma 0.5 0.2 - 1.1 mg/dL eGFRcr 124.2 mL/min/1.73m*2 Lipase Result Value Ref Range Lipase, Plasma 21 19 - 63 U/L Test Qualitative Plasma Result Value Ref Range Test Negative Negative Light Blue Top Result Value Ref Range Extra Hold for add-ons Gold Top Result Value Ref Range Extra Hold for add-ons Urinalysis with reflex microscopic (Culture NOT Included) Result Value Ref Range Color, Urine Yellow Clarity, Urine Clear Spec [place], Urine 1.019 <=1.005 to >=1.030 pH, Urine 6.0 4.5 to 8 Protein, Urine Negative Negative mg/dL Glucose, Urine Negative Negative mg/dL Ketones, Urine >=80 (A) Negative mg/dL Blood, Urine Small (A) Negative Bilirubin, Urine Negative Negative Urobilinogen, Urine 1.0 0.2 to 1.0 mg/dL Leukocytes, Urine Negative Negative Nitrite, Urine Negative Negative RBC, Urine 1 0 to 3 /HPF WBC, Urine 0 - 5 0 to 5 /HPF Squamous Epithelial Cells 6 - 10 (A) 0 to 5 /HPF Hyaline Casts 0 - 2 0 to 5 /LPF Bacteria, Urine Negative Negative Gold Top Result Value Ref Range Extra Hold for add-ons Assessment/Plan Mrs. Gayle is a 37-year-old female with past medical history of acute on chronic pancreatitis and significant abdominal pain who presents to the observation unit with intractable abdominal pain and nausea. She reports that these are identical to previous episodes of acute on chronic pancreatitis. #Chronic Abdominal Pain -maintenance IV hydration at 1.5 mL per kg per hour -p.r.n. antiemetics, Phenergan and Zofran available -pain medication, morphine preferred, q.4 p.r.n. -frequent reassessment # nausea/vomiting -p.r.n. Zofran and Phenergan available -Remains nothing by mouth due to suspicion of acute on chronic pancreatitis Cosigned by Chad Mcclure MD at 10/28/2023 10:14 AM EDT Associated attestation - Chad Mcclure MD - 10/28/2023 10:14 AM EDT I saw and evaluated the patient with the resident/fellow. I discussed the case with the resident/fellow and agree with the findings and plan as documented. I personally spent a total of 30 minutes on this encounter. This time includes face to face with patient, counseling, and discussion and/or coordination of care. * ED Provider Notes - Anthony Roberts MD - 10/23/2023 3:29 AM EDT Images from the original note were not included. - HPI Chief Complaint Patient presents with Abdominal Pain HPI Patient is a 37-year-old female past medical history of fibromyalgia, GERD, chronic abdominal pain,acute on chronic pancreatitis presenting to the emergency department for evaluation of abdominal pain. Patient reports that she has been having worsening epigastric abdominal pain for 4 days and has been seen 3 times at [facility] for evaluation. There she was received fluids IV pain medication and nausea medication and has a initial improvement in her symptoms. However, she states that this pain has acutely worsened today and she was unable to tolerate by mouth. She says this is consistent with prior flare-ups. He denies fever, chills, chest pain, shortness of breath, dysuria, hematuria, constipation or diarrhea. Patient History Past Medical History: Diagnosis Date Anxiety Arthritis Depression Fibromyalgia Gastric erosions 04/19/2021 GERD (gastroesophageal reflux disease) Hypertension Intentional overdose ([facility]) 12/20/2021 Nicotine dependence Obesity Pancreatitis Past [...] attacks too. Physical Exam ED Triage Vitals [10/23/23 0333] Temp Heart Rate Resp BP 36.8 ??C (98.3 ??F) 117 20 (!) 153/90 SpO2 Temp Source Heart Rate Source Patient Position 97 % Oral -- -- BP Location FiO2 [...] There is abdominal tenderness in the epigastric area, periumbilical area and suprapubicarea. There is no guarding or rebound. Musculoskeletal: General: No swelling. Cervical back: Neck supple. Skin: General: Skin is warm and dry. Capillary Refill: Capillary refill takes less than 2 seconds. Neurological: Mental Status: She is alert. Psychiatric: Mood and Affect: Mood normal. [place] Coma Scale Score: 15 ED Course & MDM - Assessment: 37 y.o. female presents to ED with complaint of abdominal pain, nausea and vomiting. It should be noted that her chronic conditions includes chronic abdominal pain, nausea and vomiting, which currently is not at goal therapy. This complicates her clinical picture because it Comorbidities: may be exa cerbating symptoms, increases the amount and complexity of data to be reviewed, complicates the clinical workup, and increases the risk for morbidity Differential Diagnosis: alcohol induced pancreatitis, pancreatitis, gastroparesis, gastritis, gastroenteritis, UTI In order to fully explore the differential diagnosis the following treatments and tests were ordered: ED Medication Administration from 10/23/2023 0329 to 10/23/2023 0755 Date/Time Order Dose Route Action 10/23/2023 0513 EDT ondansetron (Zofran) injection 4 mg 4 mg Intravenous Given 10/23/2023 0516 EDT ketorolac (Toradol) injection 15 mg 15 mg Intravenous Given 10/23/2023 0516 EDT lactated Ringer's infusion 1,000 mL 1,000 mL Intravenous New Bag 10/23/2023 0557 EDT morphine PF 4 mg 4 mg Intravenous Given 10/23/2023 0714 EDT ondansetron (Zofran) injection 4 mg 4 mg Intravenous Given 10/23/2023 0715 EDT diphenhydrAMINE (Benadryl) tablet 25 mg -- Oral Canceled Entry 10/23/2023 0723 EDT prochlorperazine (Compazine) injection 10 mg 10 mg Intravenous Not Given All Other Orders Ordered Status Ordering Provider 10/23/23 0518 Extra Tubes Once In process CHAD MCCLURE 10/23/23 0518 Gold Top PROCEDURE ONCE In process CHAD MCCLURE 10/23/23 0500 Urinalysis with reflex microscopic AND reflex culture (IF UTI SUSPECTED) STAT Acknowledged ANTHONY ROBERTS 10/23/23 0500 Urinalysis with reflex microscopic (Culture NOT Included) PROCEDURE ONCE Ordered ATNHONY ROBERTS 10/23/23 0500 Urine Gunter Panel PROCEDURE ONCE Ordered ANTHONY ROBERTS 10/23/23 0456 Extra Tubes Once Final result DOMINIQUE ESTEVEZ 10/23/23 0456 Gold Top PROCEDURE ONCE Final result DOMINIQUE ESTEVEZ 10/23/23 0446 Extra Tubes Once Final result DOMINIQUE ESTEVEZ 10/23/23 0446 Light Blue Top PROCEDURE ONCE Final result DOMINIQUE ESTEVEZ 10/23/23 0406 NPO diet Diet effective now Comments: Check with MD before giving PO meds for pain control Acknowledged CHAD MCCLURE 10/23/23 0406 CBC and Differential STAT Final result CHAD MCCLURE 10/23/23 0406 CMP STAT Final result CHAD MCCLURE 10/23/23 0406 Lipase STAT Final result CHAD MCCLURE 10/23/23 0406 Test Qualitative Plasma STAT Final result CHAD MCCLURE ED Course as of 10/23/23 075ThuOct 23, 2023 0605 Lipase: 21 [KS] 0752 Patient presents to the emergency department for evaluation of abdominal pain and nausea and vomiting. Reports this is similar to her prior episodes of pancreatitis and recurrent nausea and vomiting. She reports she has been seen at [facility] multiple times for similar presentation but has not been admitted for management. [KS] 0753 She reports epigastric abdominal tenderness, decreased by mouth, nausea and vomiting denies any other associated symptoms at this time. Based on presentation we will obtain laboratory imaging. Based on her reassuring exam without any acute guarding or rebound we will defer further imaging at this time. [KS] 0753 Initially, patient received IV Zofran, Toradol and fluids for management. On reassessment she did have improvement in her pain was continuing to have nausea. She was given another dose of Zofranwithout any other associated symptoms. Patient stated that she attempted to tolerate by mouth but was unable [KS] 0754 Laboratory workup is consistent with dehydration otherwise no acute findings, normal lipase. [KS] 0754 On continued nausea vomiting and abdominal pain patient will likely need further care. I had interactive discussion with the ED observation team who at this time agreed that observation for 24 hours could help improve her symptoms. [KS] 0755 Patient was admitted to ED observation for further management. [KS] ED Course User Index [KS] Anthony Roberts MD Clinical Impressions as of 10/23/23 075 Abdominal pain, epigastric Social Determinates of Health Risks (including Economic Stability, Education and level of understanding, Healthcare access and quality and concerning social factors): Poor health literacy and Poor social support Ultimately, this patient was Was admitted (Admission) The encounter diagnosis was Abdominal pain, epigastric.. Patient believed to require admission for the listed diagnoses. The ED observation service was consulted for admission and was agreeable to admit to Acute Floor (Med/Surg). ED Prescriptions None Disposition Observation Provider Care Team: ALYSA SANDOVAL ADULT [56] Are they the primary team?: Yes [1] - Anthony Roberts MD Resident 10/23/23 075 Cosigned by Chad Mcclure MD at 10/28/2023 10:13 AM EDT Associated attestation - Chad Mcclure MD - 10/28/2023 10:13 AM EDT I saw and evaluated the patient with the resident/fellow. I discussed the case with the resident/fellow and agree with the findings and plan as documented. * ED Triage Notes - Marybeth Swanson RN - 10/23/2023 3:29 AM EDT Pt arrived via POV with c/o abd pain and n/v. Pt states she was dx with pancreatitis at [facility] and DC home without any rx and the pain/nausea has gotten worse. Pt states her pcp told her to come toa different ER. Pt has a hx of pancreatitis and says this is the worse episode she's ever had. * Progress Notes - Nelli Brady MD - 10/23/2023 3:29 AM EDT Please see the primary providers??? note for complete elements of the history, physical exam, and ED course. Illness Severity: Stable Patient Summary: Rosibel Gayle is a 37 y.o. female with a PMHx of Past Medical History: Diagnosis Date Anxiety Arthritis Depression Fibromyalgia Gastric erosions 04/19/2021 GERD (gastroesophageal reflux disease) Hypertension Intentional overdose ([facility]) 12/20/2021 Nicotine dependence Obesity Pancreatitis presented to the ED with acute on chronic pancreatitis. Most recent vital signs: Visit Vitals BP 139/80 (BP Location: Left arm, Patient Position: Lying) Pulse 81 Temp 36.4 ??C (97.5 ??F) (Oral) Resp 16 Ht 1.651 m (5' 5 ) Wt 97.5 kg (215 lb) SpO2 97% BMI 35.78 kg/m?? OB Status Having periods Smoking Status Every Day BSA 2.11 m?? Lab and imaging results: Labs Reviewed CBC WITH AUTO DIFFERENTIAL - Abnormal Result Value WBC Count 4.82 RBC Count 4.69 HGB 11.7 HCT 36.7 Platelet Count 247 MCV 78 (*) MCH 24.9 (*) MCHC 31.9 RDW 17.4 (*) MPV 9.8 nRBC 0.0 Differential Type Automated Neutrophils % 62.0 Lymphocytes % 31.0 Monocytes % 4.0 Eosinophils % 2.0 Basophils % 1.0 Immature Granulocytes % 0.0 Neutrophils Absolute 3.02 Lymphocytes Absolute 1.47 Monocytes Absolute 0.20 (*) Eosinophils Absolute 0.08 Basophils Absolute 0.03 Immature Granulocytes Absolute 0.02 Narrative: Therapeutic decision making should be based on absolute values, rather than percentages. COMPREHENSIVE METABOLIC PANEL, PLASMA - Abnormal Glucose, Plasma 85 BUN, Plasma 4 (*) Creatinine, Plasma 0.51 (*) BUN/Creatinine Ratio 8 Sodium, Plasma 140 Potassium, Plasma 3.5 (*) Chloride, Plasma 103 CO2, Plasma 19 (*) Anion Gap 18 (*) Total Calcium, Plasma 9.9 Total Protein 7.7 Albumin, Plasma 4.8 AST, Plasma 25 ALT, Plasma 18 Alkaline Phosphatase, Plasma 113 (*) Total Bilirubin, Plasma 0.5 eGFRcr 124.2 URINALYSIS WITH REFLEX MICROSCOPIC - Abnormal Color, Urine Yellow Clarity, Urine Clear Spec [place], Urine 1.019 pH, Urine 6.0 Protein, Urine Negative Glucose, Urine Negative Ketones, Urine >=80 (*) Blood, Urine Small (*) Bilirubin, Urine Negative Urobilinogen, Urine 1.0 Leukocytes, Urine Negative Nitrite, Urine Negative RBC, Urine 1 WBC, Urine 0 - 5 Squamous Epithelial Cells 6 - 10 (*) Hyaline Casts 0 - 2 Bacteria, Urine Negative LIPASE, PLASMA - Normal Lipase, Plasma 21 TEST QUALITATIVE PLASMA - Normal Test Negative Narrative: Reference Range: Males and non- females: Negative. EXTRA TUBES Narrative: The following orders were created for panel order Extra Tubes. Procedure Abnormality Status --------- ------ Light Blue Top[[id number]] Final result Please view results for these tests on the individual orders. EXTRA TUBE LIGHT BLUE TOP Extra Hold for add-ons EXTRA TUBES Narrative: The following orders were created for panel order Extra Tubes. Procedure Abnormality Status --------- ------ Gold Top[[id number]] Final result Please view results for these tests on the individual orders. EXTRA TUBE GOLD TOP Extra Hold for add-ons URINALYSIS WITH REFLEX MICROSCOPIC AND CULTURE Narrative: The following orders were created for panel order Urinalysis with reflex microscopic AND reflex culture (IF UTI SUSPECTED). Procedure Abnormality Status --------- ------ Urinalysis with reflex m...[[id number]] Abnormal Final result Urine Gunter Panel[[id number]] Final result Please view results for these tests on the individual orders. URINE GUNTER PANEL Extra Reflex urine culture not indicated EXTRA TUBES Narrative: The following orders were created for panel order Extra Tubes. Procedure Abnormality Status --------- ------ Gold Top[[id number]] Final result Please view results for these tests on the individual orders. EXTRA TUBE GOLD TOP Extra Hold for add-ons URINALYSIS MICROSCOPIC FOR UA REFLEX No orders to display Action plan (To Do): admit to hospital medicine for continued treatment of intractable epigastric abdominal pain. Remains HDS. Tolerating Jell-O and naa estuardo. Disposition: Admission ED Course as of 10/24/23 0719 ThuOct 23, 2023 0605 Lipase: 21 [KS] 0752 Patient presents to the emergency department for evaluation of abdominal pain and nausea and vomiting. Reports this is similar to her prior episodes of pancreatitis and recurrent nausea and vomiting. She reports she has been seen at [facility] multiple times for similar presentation but has not been admitted for management. [KS] 0753 She reports epigastric abdominal tenderness, decreased by mouth, nausea and vomiting denies any other associated symptoms at this time. Based on presentation we will obtain laboratory imaging. Based on her reassuring exam without any acute guarding or rebound we will defer further imaging at this time. [KS] 0753 Initially, patient received IV Zofran, Toradol and fluids for management. On reassessment she did have improvement in her pain was continuing to have nausea. She was given another dose of Zofranwithout any other associated symptoms. Patient stated that she attempted to tolerate by mouth but was unable [KS] 0754 Laboratory workup is consistent with dehydration otherwise no acute findings, normal lipase. [KS] 0754 On continued nausea vomiting and abdominal pain patient will likely need further care. I had interactive discussion with the ED observation team who at this time agreed that observation for 24 hours could help improve her symptoms. [KS] 0755 Patient was admitted to ED observation for further management. [KS] ED Course User Index [KS] Anthony Roberts MD Clinical Impressions as of 10/24/23 0719 Abdominal pain, epigastric Nausea and vomiting, unspecified vomiting type Intractable abdominal pain - Cosigned by Chad Mcclure MD at 10/28/2023 10:14 AM EDT Associated attestation - Chad Mcclure MD - 10/28/2023 10:14 AM EDT I saw and evaluated the patient with the resident/fellow. I discussed the case with the resident/fellow and agree with the findings and plan as documented. documented in this encounter Plan of Treatment Scheduled Referrals Name Type Priority Associated Diagnoses Order Schedule Discharge Ambulatory referral to NON Gastroenterology Outpatient Referral Routine History of acute pancreatitis 1 Occurrences starting 10/28/2023 until 04/26/2025 documented as of this encounter Procedures Procedure Name Priority Date/Time Associated Diagnosis Comments MRCP W AND WO IV CONTRAST Today 10/27/2023 11:08 PM EDT TISSUE TRANSGLUTAMINASE (TTG) AB, IGA (SO) Pending Discharge 10/26/2023 3:39 AM EDT CBC WITH AUTO DIFFERENTIAL Pending Discharge 10/26/2023 3:39 AM EDT TSH Pending Discharge 10/26/2023 3:39 AM EDT PHOSPHORUS, PLASMA Pending Discharge 10/26/2023 3:39 AM EDT MAGNESIUM, PLASMA Pending Discharge 10/26/2023 3:39 AM EDT COMPREHENSIVE METABOLIC PANEL, PLASMA Pending Discharge 10/26/2023 3:39 AM EDT LACTATE, VENOUS STAT 10/24/2023 11:02 AM EDT VITAMIN A (RETINOL), SERUM OR PLASMA (SO) Routine 10/24/2023 11:02 AM EDT VITAMIN K1, SERUM (SO) Routine 11:02 AM EDT VITAMIN D 25 HYDROXY Routine 10/24/2023 11:02 AM EDT VITAMIN E, SERUM OR PLASMA (SO) Routine 10/24/2023 11:02 AM EDT URINALYSIS WITH REFLEX MICROSCOPIC STAT 10/23/2023 8:05 AM EDT URINE GUNTER PANEL STAT 10/23/2023 8:05 AM EDT URINALYSIS MICROSCOPIC FOR UA REFLEX STAT 10/23/2023 8:05 AM EDT URINALYSIS WITH REFLEX MICROSCOPIC STAT 10/23/2023 8:05 AM EDT EXTRA TUBE GOLD TOP Routine 10/23/2023 4 :07 AM EDT EXTRA TUBE GOLD TOP Routine 10/23/2023 4 :07 AM EDT EXTRA TUBE LIGHT BLUE TOP Routine 10/23/2023 4:07 AM EDT EXTRA TUBES Routine 10/23/2023 4:07 AM EDT EXTRA TUBES Routine 10/23/2023 4:07 AM EDT EXTRA TUBES Routine 10/23/2023 4:07 AM EDT CBC WITH AUTO DIFFERENTIAL STAT 10/23/2023 4:07 AM EDT TEST QUALITATIVE PLASMA STAT 10/23/2023 4:07 AM EDT LIPASE, PLASMA STAT 10/23/2023 4:07 AM EDT COMPREHENSIVE METABOLIC PANEL, PLASMA STAT 10/23/2023 4:07 AM EDT documented in this encounter Results * MRCP w and wo IV Contrast (10/27/2023 11:08 PM EDT) Anatomical Region Laterality Modality Abdomen Magnetic Resonan ce Impressions 10/28/2023 9:42 AM EDT Normal pancreas without acute or chronic inflammatory changes. Mild splenomegaly, similar to prior. CRITICAL RESULT: No. COMMUNICATION: Per this written report. Preliminary report signed by Latricia Larios MD on 10/28/2023 9:34 AM By electronically signing this report, I, the attending physician, attest that I have personally reviewed the images/data for the above examination(s) and agree with the final edited report. Drafted by Latricia Larios MD on 10/28/2023 9:00 AM Final report signed by Rhonda Maria MD on 10/28/2023 9:42 AM Narrative 10/28/2023 9:42 AM EDT CLINICAL INDICATION: Epigastric pain TECHNIQUE: MR imaging of the abdomen was performed with and without intravenous contrast material using the following sequences: coronal single shot T2 weighted fast spin echo, axial T2 weighted sequences with and without fat saturation, axial dual phase gradient echo, pre and dynamic postcontrast 3-D T1 weighted gradient echo with fat saturation (axial and coronal), and axial diffusion. Heavily T2-weighted thick slab, 2D, and 3D MRCP sequences. 9.8 mL of Gadavist was administered. COMPARISON: 03/14/2023: CT abdomen/pelvis with contrast 11/12/2020: MRCP with and without contrast FINDINGS: Gallbladder: Surgically absent. Biliary Tree: No intrahepatic or extrahepatic biliary ductal dilatation. No evidence of stricture, choledocholithiasis, epithelial thickening, or abnormal enhancement. Pancreas: Normal intrinsic signal and homogeneous enhancement. No acute or chronic inflammatory changes. No focal parenchymal lesions. Normal caliber pancreatic duct. No pancreas divisum. Liver: Normal signal and morphology. No significant steatosis deposition. No focal liver lesions. Spleen: Mild splenomegaly measuring 14 cm in craniocaudal dimension (series 27, image 56). No focal lesions. Adrenal Glands: Morphologically normal. Kidneys: Symmetric enhancement and early excretion. No focal parenchymal lesions. No hydronephrosis. Fluid Survey: No ascites. Vasculature: Patent, normal caliber abdominal aorta and major branching vessels. Patent IVC and portal vein. Lymph Nodes: No adenopathy. Other: Moderate colonic stool burden. Normal caliber of the visualized small and large bowel. No acute or suspicious osseous lesions. The 2.4 cm right inferomedial breast nodule demonstrates benign features with smooth borders, T2 hypointensity, intrinsic T1 hyperintensity, and progressive enhancement (27, image 5), unchanged in size since 2020 MRI, favoring benign etiology. Procedure Note Rhonda Maria MD - 10/28/2023 CLINICAL INDICATION: Epigastric pain TECHNIQUE: MR imaging of the abdomen was performed with and without intravenouscontrast material using the following sequences: coronal single shot [id number] fast spin echo, axial T2 weighted sequences with and without fatsaturation, axial dual phase gradient echo, pre and dynamic postcontrast3-D T1 weighted gradient echo with fat saturation (axial and coronal), andaxial diffusion. Heavily T2-weighted thick slab, 2D, and 3D MRCPsequences. 9.8 mL of Gadavist was administered. COMPARISON: 03/14/2023: CT abdomen/pelvis with contrast 11/12/2020: MRCP with and without contrast FINDINGS: Gallbladder: Surgically absent. Biliary Tree: No intrahepatic or extrahepatic biliary ductal dilatation.No evidence of stricture, choledocholithiasis, epithelial thickening, orabnormal enhancement. Pancreas: Normal intrinsic signal and homogeneous enhancement. No acute orchronic inflammatory changes. No focal parenchymal lesions. Normal caliberpancreatic duct. No pancreas divisum. Liver: Normal signal and morphology. No significant steatosis deposition.No focal liver lesions. Spleen: Mild splenomegaly measuring 14 cm in craniocaudal dimension(series 27, image 56). No focal lesions. Adrenal Glands: Morphologically normal. Kidneys: Symmetric enhancement and early excretion. No focal parenchymallesions. No hydronephrosis. Fluid Survey: No ascites. Vasculature: Patent, normal caliber abdominal aorta and major branchingvessels. Patent IVC and portal vein. Lymph Nodes: No adenopathy. Other: Moderate colonic stool burden. Normal caliber of the visualizedsmall and large bowel. No acute or suspicious osseous lesions. The 2.4 cmright inferomedial breast nodule demonstrates benign features with smoothborders, T2 hypointensity, intrinsic T1 hyperintensity, and progressiveenhancement (27, image 5), unchanged in size since 2020 MRI, favoringbenign etiology. IMPRESSION: Normal pancreas without acute or chronic inflammatory changes. Mild splenomegaly, similar to prior. CRITICAL RESULT: No. COMMUNICATION: Per this written report. Preliminary report signed by Latricia Larios MD on 10/28/2023 9:34 AM By electronically signing this report, I, the attending physician, attestthat I have personally reviewed the images/data for the aboveexamination(s) and agree with the final edited report. Drafted by Latricia Larios MD on 10/28/2023 9:00 AM Final report signed by Rhonda Maria MD on 10/28/2023 9:42 AM Marly Curran MD IMG MRI PROCEDURES Final Result * Tissue Transglutaminase (tTG) Ab, IgA (SO) (10/26/2023 3:39 AM EDT) Tissue Transglutaminase (tTG) Ab, IgA <1.02 0.00 - 4.99 FLU 10/28/2023 11:18 PM EDT [facility]) Blood Venous blood specimen / Unknown Venipuncture / Unknown 10/26/2023 3:39 AM EDT 10/26/2023 3:49 AM EDT Narrative [facility] ([employer]) - 10/28/2023 11:18 PM EDT INTERPRETIVE INFORMATION: Tissue Transglutaminase (tTG) ?Antibody, IgA Presence of the tissue transglutaminase (tTG) IgA antibody is associated with gluten-sensitive enteropathies such as celiac disease and dermatitis herpetiformis. Individuals with positive results should be confirmed with small intestinal biopsy to establish celiac disease diagnosis. tTG IgA antibody concentrations greater than 50 FLU exhibits higher correlation with results of duodenal biopsies consistent with celiac disease. For antibody concentrations greater than or equal to 5 FLU but less than 10 FLU, additional testing for endomysial (RE) IgA concentrations may improve the positive predictive value for disease. A decrease in tTG IgA antibody concentration after initiation of a gluten-free diet may indicate a response to therapy. Performed By: [facility] [address] [place] [address] Landing Signal Officer: Tom Thomas MD, PhD CLIA Number: [id number] Marly Curran MD LAB REF LAB BLOOD A ND FLUID ORD Final Result Performing Organization Address City/[facility]/ZIP Co de Phone Number [facility] ([facility]) [address] [place] [address] * (ABNORMAL) TSH (10/26/2023 3:39 AM EDT) Thyroid Stimulating Hormone, Plasma 4.92(H) 0.40 - 4.20 uIU/mL 10/26/2023 4:25 AM EDT [facility] Blood Venous blood specimen / Unknown Venipuncture / Unknown 10/26/2023 3:39 AM EDT 10/26/2023 3:49 AM EDT Narrative [facility] - 10/26/2023 4:25 AM EDT Trimester Specific Ranges ?TSH (??IU/mL) 1st Trimester ??0.1 ??- 3.0 2nd Trimester ??0.19 - 4.06 3rd Trimester ??0.3 ??- 3.7 Marly Curran MD LAB BLOOD ORDERABLE S Final Result Performing Organization Address City/[facility]/ZIP Co de Phone Number [facility] [address] [place] [address] * Phosphorus, Plasma (10/26/2023 3:39 AM EDT) Phosphorus, Plasma 4.1 2.5 - 4.5 mg/dL 10/26/2023 4:25 AM EDT [facility] Blood Venous blood specimen / Unknown Venipuncture / Unknown 10/26/2023 3:39 AM EDT 10/26/2023 3:49 AM EDT [facility] LAB BLOOD ORDERABLE S Final Result Performing Organization Address City/[facility] Co de Phone Number [facility] [address] [place] [address] * (ABNORMAL) Magnesium, Plasma (10/26/2023 3:39 AM EDT) Magnesium, Plasma 1.8(L) 1.9 - 2.4 mg/dL 10/26/2023 4:25 AM EDT [facility] Blood Venous blood specimen / Unknown Venipuncture / Unknown 10/26/2023 3:39 AM EDT 10/26/2023 3:49 AM EDT Marly Curran MD LAB BLOOD ORDERABLE S Final Result Performing Organization Address City/[facility] de Phone Number [facility] [address] [place] [address] * (ABNORMAL) Comprehensive Metabolic Panel, Plasma (10/26/2023 3:39 AM EDT) Glucose, Plasma 92 74 - 99 mg/dL 10/26/2023 4:25 AM EDT [facility] BUN, Plasma 6(L) 7 - 21 mg/dL 10/26/2023 4:25 AM EDT [facility] Creatinine, Plasma 0.64 0.60 - 1.10 mg/dL 10/26/2023 4:25 AM EDT [facility] BUN/Creatinine Ratio 9 10/26/2023 4:25 AM EDT [facility] Sodium, Plasma 139 136 - 145 mmol/L 10/26/2023 4:25 AM EDT [facility] Potassium, Plasma 3.8 3.7 - 4.8 mmol/L 10/26/2023 4:25 AM EDT [facility] Chloride, Plasma 105 97 - 107 mmol/L 10/26/2023 4:25 AM EDT [facility] CO2, Plasma 27 22 - 29 mmol/L 10/26/2023 4:25 AM EDT [facility] Anion Gap 7 6 - 16 mmol/L 10/26/2023 4:25 AM EDT [facility] Total Calcium, Plasma 8.7(L) 8.9 - 10.2 mg/dL 10/26/2023 4:25 AM EDT [facility] Total Protein 5.6(L) 6.3 - 7.9 g/dL 10/26/2023 4:25 AM EDT [facility] Albumin, Plasma 3.6 3.5 - 5.2 g/dL 10/26/2023 4:25 AM EDT [facility] AST, Plasma 18 10 - 35 U/L 10/26/2023 4:25 AM EDT [facility] ALT, Plasma 22 10 - 35 U/L 10/26/2023 4:25 AM EDT [facility] Alkaline Phosphatase, Plasma 87 35 - 104 U/L 10/26/2023 4:25 AM EDT [facility] Total Bilirubin, Plasma <0.2(L) 0.2 - 1.1 mg/dL 10/26/2023 4:25 AM EDT [facility] eGFRcr 117.6 mL/min/1.7 3m*2 10/26/2023 4:25 AM EDT [facility] Comment:Reported eGFRcr in m L/min/1.73m2 is based the CKD-EPI 2020 equation that does not use a race coefficient. Blood Venous blood specimen / Unknown Venipuncture / Unknown 10/26/2023 3:39 AM EDT 10/26/2023 3:49 AM EDT us Marly Curran MD LAB BLOOD ORDERABLE S Final Result [facility] [address] [place] [address] * (ABNORMAL) CBC and Differential (10/26/2023 3:39 AM EDT) WBC Count 4.54 3.70 - 10.30 10*3/uL LAB HEMATOLOGY METHOD 10/26/2023 4:01 AM EDT [facility] RBC Count 4.07 3.90 - 5.20 10*6/uL LAB HEMATOLOGY METHOD 10/26/2023 4:01 AM EDT [facility] HGB 10.0(L) 11.2 - 15.7 g/dL LAB HEMATOLOGY METHOD 10/26/2023 4:01 AM EDT [facility] HCT 34.8 34.0 - 45.0 % LAB HEMATOLOGY METHOD 10/26/2023 4:01 AM EDT [facility] Platelet Count 299 155 - 369 10*3/uL LAB HEMATOLOGY METHOD 10/26/2023 4:01 AM EDT [facility] MCV 86 79 - 98 fL LAB HEMATOLOGY METHOD 10/26/2023 4:01 AM EDT [facility] Comment:Results inconsistent with previous lab findings. MCH 24.6(L) 26.0 - 32.0 pg LAB HEMATOLOGY METHOD 10/26/2023 4:01 AM EDT [facility] MCHC 28.7(L) 30.7 - 35.5 g/dL LAB HEMATOLOGY METHOD 10/26/2023 4:01 AM EDT [facility] RDW 17.6(H) 11.5 - 14.5 % LAB HEMATOLOGY METHOD 10/26/2023 4:01 AM EDT [facility] MPV 9.9 8.8 - 12.5 fL LAB HEMATOLOGY METHOD 10/26/2023 4:01 AM EDT [facility] nRBC 0.0 <=0.0 per 100 WBCs LAB HEMATOLOGY METHOD 10/26/2023 4:01 AM EDT [facility] Differential Type Automated LAB HEMATOLOGY METHOD 10/26/2023 4:01 AM EDT [facility] Neutrophils % 45.0 % LAB HEMATOLOGY METHOD 10/26/2023 4:01 AM EDT [facility] Lymphocytes % 44.0 % LAB HEMATOLOGY METHOD 10/26/2023 4:01 AM EDT [facility] Monocytes % 6.0 % LAB HEMATOLOGY METHOD 10/26/2023 4:01 AM EDT [facility] Eosinophils % 4.0 % LAB HEMATOLOGY METHOD 10/26/2023 4:01 AM EDT [facility] Basophils % 1.0 % LAB HEMATOLOGY METHOD 10/26/2023 4:01 AM EDT [facility] Immature Granulocytes % 0.0 % LAB HEMATOLOGY METHOD 10/26/2023 4:01 AM EDT [facility] Neutrophils Absolute 2.05 1.60 - 6.10 10*3/uL LAB HEMATOLOGY METHOD 10/26/2023 4:01 AM EDT [facility] Lymphocytes Absolute 2.01 1.20 - 3.90 10*3/uL LAB HEMATOLOGY METHOD 10/26/2023 4:01 AM EDT [facility] Monocytes Absolute 0.25(L) 0.30 - 0.90 10*3/uL LAB HEMATOLOGY METHOD 10/26/2023 4:01 AM EDT [facility] Eosinophils Absolute 0.17 0.00 - 0.50 10*3/uL LAB HEMATOLOGY METHOD 10/26/2023 4:01 AM EDT [facility] Basophils Absolute 0.04 0.00 - 0.10 10*3/uL LAB HEMATOLOGY METHOD 10/26/2023 4:01 AM EDT [facility] Immature Granulocytes Absolute 0.02 0.00 - 0.06 10*3/uL LAB HEMATOLOGY METHOD 10/26/2023 4:01 AM EDT [facility] Blood Venous blood specimen / Unknown Venipuncture / Unknown 10/26/2023 3:39 AM EDT 10/26/2023 3:49 AM EDT Narrative [facility] - 10/26/2023 4:01 AM EDT Therapeutic decision making should be based on absolute values, rather than percentages. Marly Curran MD LAB BLOOD ORDERABLE S Final Result [facility] [address] [place] [id number] * Vitamin K (10/24/2023 11:02 AM EDT) VITAMIN K RESULT 0.51 0.22 - 4.88 nmol/L 10/28/2023 10:22 PM EDT [facility] ([facility]) Serum Venous blood specimen / Unknown 10/24/2023 11:02 AM EDT 10/24/2023 11:14 AM EDT Narrative [facility] ([facility]) - 10/28/2023 10:22 PM EDT INTERPRETIVE INFORMATION: Vitamin K1, Serum Vitamin K concentration is reported as nanomoles per liter (nmol/L). To convert concentration to nanograms per milliliter (ng/mL), multiply the result by 0.45. This test was developed and its performance characteristics determined by [facility]. It has not been cleared or approved by the [place] Food and Drug Administration. This test was performed in a CLIA certified laboratory and is intended for clinical purposes. Performed By: [facility] [employer] [address] [place] [address] Landing Signal Officer: Tom Thomas MD, PhD CLIA Number: [id number] [facility] Rachel Curran MD LAB BLOOD ORDERABLE S Final Result Performing Organization Address [facility]/ZIP Co de Phone Number [facility] ([facility]) [address] [place] [address] * Vitamin E (10/24/2023 11:02 AM EDT) Vitamin E (Alpha-Tocophe rol) 5.7 5.5 - 18.0 mg/L 10/28/2023 9:21 AM EDT [facility] ([facility]) Vitamin E (Gamma-Tocophe rol) 0.9 0.0 - 6.0 mg/L 10/28/2023 9:21 AM EDT [facility] ([facility]) Fasting greater than or equal to 12 hours? 10/28/2023 9:[address] [facility] ([facility]) Blood Venous blood specimen / Unknown Venipuncture / Unknown 10/24/2023 11:02 AM EDT 10/24/2023 11:12 AM EDT Narrative [facility] ([facility]) - 10/28/2023 9:21 AM EDT This test was developed and its performance characteristics determined by [facility]. It has not been cleared or approved by the [place] Food and Drug Administration. This test was performed in a CLIA certified laboratory and is intended for clinical purposes. Performed By: [facility] [address] [place] [address] Landing Signal Officer: Tom Thomas MD, PhD CLIA Number: [id number] Marlyzander Curran MD LAB BLOOD ORDERABLE S Final Result Performing Organization Address City/[facility]/ZIP Co de Phone Number [facility] ([facility]) [address] [place] [address] * (ABNORMAL) Vitamin A (10/24/2023 11:02 AM EDT) Vitamin A (Retinyl Palmitate) <0.02 0.00 - 0.10 mg/L 10/28/2023 9:21 AM EDT [facility] ([facility]) VITAMIN A,SER/MATT-INTE RPRETATION See Note 10/28/2023 9:21 AM EDT [facility] ([facility]) Vitamin A (Retinol) 0.27(L) 0.30 - 1.20 mg/L 10/28/2023 9:21 AM EDT [facility] ([facility]) Fasting greater than or equal to 12 hours? 10/28/2023 9:21 AM EDT [facility] ([facility]) Blood Venous blood specimen / Unknown Venipuncture / Unknown 10/24/2023 11:02 AM EDT 10/24/2023 11:12 AM EDT Narrative [facility] ([facility]) - 10/28/2023 9:21 AM EDT Retinol greater than 0.3 mg/L is typically associated with adequate liver stores in adults, and is within normal limits for children. Retinol less than 0.10 mg/L may indicate depleted liver stores and severe deficiency. This test was developed and its performance characteristics determined by [facility] [facility]. It has not been cleared or approved by the [place] Food and Drug Administration. This test was performed in a CLIA certified laboratory and is intended for clinical purposes. Performed By: [facility] [address] [place], [place] [id number] Landing Signal Officer: Tom Thomas MD, PhD CLIA Number: [id number] Marly Curran MD LAB BLOOD ORDERABLE S Final Result [facility] [address] [place] [phone] * Vitamin D 25 Hydroxy (10/24/2023 11:02 AM EDT) Vitamin D 25 Hydroxy 21.0 20.0 - 80.0 ng/mL 10/24/2023 12:19 PM EDT [facility] Blood Venous blood specimen / Unknown Venipuncture / Unknown 10/24/2023 11:02 AM EDT 10/24/2023 11:12 AM EDT Narrative [facility] - 10/24/2023 12:19 PM EDT Testing performed on [employer], standardized against NIST SRM 2972. When testing samples from patients whose predominant form of vitamin D is vitamin D2, such as patients receiving vitamin D2 supplementation, results that are subtherapeutic should be confirmed with another method, such as LC-MS/MS, before being used for patient management. Vitamin D, 25-Hydroxy reference range, age 18 years and up: Deficiency: ? <12 ng/mL Insufficiency: ? 12 to 19 ng/mL Sufficiency: ?20 to 80 ng/mL Possible toxicity: ?? >100 ng/mL Marly Curran MD LAB BLOOD ORDERABLE S Final Result Performing Organization Address City/[facility] Co de Phone Number [facility] [address] [place] [address] * Lactate, venous (10/24/2023 11:02 AM EDT) [facility] Lactate, Venous, Whole Blood 0.8 0.5 - 2.2 mmol/L LAB HEMATOLOGY METHOD 10/24/2023 11:16 AM EDT [facility] Blood Venous blood specimen / Unknown Venipuncture / Unknown 10/24/2023 11:02 AM EDT 10/24/2023 11:14 AM EDT Marly Curran MD LAB BLOOD ORDERABLE S Final Result Performing Organization Address City/[facility] Co de Phone Number [facility] [address] [place] [address] * Urinalysis Microscopic Examination (10/23/2023 8:05 AM EDT) Urine Urine specimen obtained by clean catch procedure / Unknown Non-blood Collection / Unknown 10/23/2023 8:05 AM EDT 10/23/2023 8:13 AM EDT us Chad Mcclure MD LAB URINE ORDERABLES Final Resul t Performing Organization Address City/[facility] Co de Phone Number [facility] [address] [place] [address] * Urine Gunter Panel (10/23/2023 8:05 AM EDT) Extra Reflex urine culture not indicated 10/23/2023 10:01 AM EDT [facility] Urine Urine specimen obtained by clean catch procedure / Unknown Non-blood Collection / Unknown 10/23/2023 8:05 AM EDT 10/23/2023 8:21 AM EDT us Chad Mcclure MD LAB URINE ORDERABLES Final Resul t Performing Organization Address [facility] de Phone Number [facility] [address] [place] [address] * (ABNORMAL) Urinalysis with reflex microscopic (Culture NOT Included) (10/23/2023 8:05 AM EDT) Color, Urine Yellow LAB URINALYSIS - AUTOMATED METHOD 10/23/2023 8:32 AM EDT [facility] Clarity, Urine Clear LAB URINALYSIS - AUTOMATED METHOD 10/23/2023 8:32 AM EDT [facility] Spec [place], Urine 1.019 <=1.005 to >=1.030 LAB URINALYSIS - AUTOMATED METHOD 10/23/2023 8:32 AM EDT [facility] pH, Urine 6.0 4.5 to 8 LAB URINALYSIS - AUTOMATED METHOD 10/23/2023 8:32 AM EDT [facility] Protein, Urine Negative Negative mg/dL LAB URINALYSIS - AUTOMATED METHOD 10/23/2023 8:32 AM EDT [facility] Glucose, Urine Negative Negative mg/dL LAB URINALYSIS - AUTOMATED METHOD 10/23/2023 8:32 AM EDT [facility] Ketones, Urine >=80(A) Negative mg/dL LAB URINALYSIS - AUTOMATED METHOD 10/23/2023 8:32 AM EDT [facility] Blood, Urine Small(A) Negative LAB URINALYSIS - AUTOMATED METHOD 10/23/2023 8:32 AM EDT [facility] Bilirubin, Urine Negative Negative LAB URINALYSIS - AUTOMATED METHOD 10/23/2023 8:32 AM EDT [facility] Urobilinogen, Urine 1.0 0.2 to 1.0 mg/dL LAB URINALYSIS - AUTOMATED METHOD 10/23/2023 8:32 AM EDT [facility] Leukocytes, Urine Negative Negative LAB URINALYSIS - AUTOMATED METHOD 10/23/2023 8:32 AM EDT [facility] Nitrite, Urine Negative Negative LAB URINALYSIS - AUTOMATED METHOD 10/23/2023 8:32 AM EDT [facility] RBC, Urine 1 0 to 3 /HPF LAB URINALYSIS - AUTOMATED METHOD 10/23/2023 8:32 AM EDT [facility] Comment:This result was prev iously suppressed from the chart. WBC, Urine 0 - 5 0 to 5 /HPF LAB URINALYSIS - AUTOMATED METHOD 10/23/2023 8:32 AM EDT [facility] Comment:This result was prev iously suppressed from the chart. Squamous Epithelial Cells 6 - 10(A) 0 to 5 /HPF LAB URINALYSIS - AUTOMATED METHOD 10/23/2023 8:32 AM EDT [facility] Comment:This result was prev iously suppressed from the chart. Hyaline Casts 0 - 2 0 to 5 /LPF LAB URINALYSIS - AUTOMATED METHOD 10/23/2023 8:32 AM EDT [facility] Comment:This result was prev iously suppressed from the chart. Bacteria, Urine Negative Negative LAB URINALYSIS - AUTOMATED METHOD 10/23/2023 8:32 AM EDT [facility] Comment:This result was prev iously suppressed from the chart. Urine Urine specimen obtained by clean catch procedure / Unknown Non-blood Collection / Unknown 10/23/2023 8:05 AM EDT 10/23/2023 8:13 AM EDT us Chad Mcclure MD LAB URINE ORDERABLES Final Resul t [facility] [address] [place] [address] * Gold Top (10/23/2023 4:07 AM EDT) Extra Hold for add-ons 10/23/2023 8:03 AM EDT [facility] Comment:Auto resulted. Blood Venous blood specimen / Unknown 10/23/2023 4:07 AM EDT 10/23/2023 5:18 AM EDT Chad Mcclure MD LAB BLOOD ORDERABLES Final Resul t Performing Organization Address City/[facility] Co de Phone Number [facility] [address] [place] [address] * Gold Top (10/23/2023 4:07 AM EDT) Extra Hold for add-ons 10/23/2023 7:01 AM EDT [facility] Comment:Auto resulted. Blood Venous blood specimen / Unknown 10/23/2023 4:07 AM EDT 10/23/2023 4:56 AM EDT Dominique Estevez MD LAB BLOOD ORDERABLES Final Resu lt Performing Organization Address [facility] Phone Number [facility] [address] [place] [address] * Light Blue Top (10/23/2023 4:07 AM EDT) Extra Hold for add-ons 10/23/2023 7:01 AM EDT [facility] Comment:Auto resulted. Blood Venous blood specimen / Unknown 10/23/2023 4:07 AM EDT 10/23/2023 4:46 AM EDT Dominique Estevez MD LAB BLOOD ORDERABLES Final Resu lt Performing Organization Address [facility] de Phone Number [facility] [address] [place] [address] * Test Qualitative Plasma (10/23/2023 4:07 AM EDT) Test Negative Negative 10/23/2023 5:53 AM EDT [facility] Blood Venous blood specimen / Unknown Venipuncture / Unknown 10/23/2023 4:07 AM EDT 10/23/2023 4:45 AM EDT Narrative [facility] - 10/23/2023 5:53 AM EDT Reference Range: Males and non- females: Negative. us Chad Mcclure MD LAB BLOOD ORDERABLES Final Resul t Performing Organization Address City/[facility] Co de Phone Number [facility] [address] [place] [address] * Lipase (10/23/2023 4:07 AM EDT) Lipase, Plasma 21 19 - 63 U/L 10/23/2023 6:05 AM EDT [facility] Blood Venous blood specimen / Unknown Venipuncture / Unknown 10/23/2023 4:07 AM EDT 10/23/2023 4:45 AM EDT us Chad Mcclure MD LAB BLOOD ORDERABLES Final Resul t Performing Organization Address [facility] de Phone Number [facility] [address] [place] [address] * (ABNORMAL) CMP (10/23/2023 4:07 AM EDT) Glucose, Plasma 85 74 - 99 mg/dL 10/23/2023 5:53 AM EDT [facility] BUN, Plasma 4(L) 7 - 21 mg/dL 10/23/2023 5:53 AM EDT [facility] Creatinine, Plasma 0.51(L) 0.60 - 1.10 mg/dL 10/23/2023 5:53 AM EDT [facility] BUN/Creatinine Ratio 8 10/23/2023 5:53 AM EDT [facility] Sodium, Plasma 140 136 - 145 mmol/L 10/23/2023 5:53 AM EDT [facility] Potassium, Plasma 3.5(L) 3.7 - 4.8 mmol/L 10/23/2023 5:53 AM EDT [facility] Chloride, Plasma 103 97 - 107 mmol/L 10/23/2023 5:53 AM EDT [facility] CO2, Plasma 19(L) 22 - 29 mmol/L 10/23/2023 5:53 AM EDT [facility] Anion Gap 18(H) 6 - 16 mmol/L 10/23/2023 5:53 AM EDT [facility] Total Calcium, Plasma 9.9 8.9 - 10.2 mg/dL 10/23/2023 5:53 AM EDT [facility] Total Protein 7.7 6.3 - 7.9 g/dL 10/23/2023 5:53 AM EDT [facility] Albumin, Plasma 4.8 3.5 - 5.2 g/dL 10/23/2023 5:53 AM EDT [facility] AST, Plasma 25 10 - 35 U/L 10/23/2023 5:53 AM EDT [facility] ALT, Plasma 18 10 - 35 U/L 10/23/2023 5:53 AM EDT [facility] Alkaline Phosphatase, Plasma 113(H) 35 - 104 U/L 10/23/2023 5:53 AM EDT [facility] Total Bilirubin, Plasma 0.5 0.2 - 1.1 mg/dL 10/23/2023 5:53 AM EDT [facility] eGFRcr 124.2 mL/min/1.7 3m*2 10/23/2023 5:53 AM EDT [facility] Comment:Reported eGFRcr in m L/min/1.73m2 is based the CKD-EPI 2020 equation that does not use a race coefficient. Blood Venous blood specimen / Unknown Venipuncture / Unknown 10/23/2023 4:07 AM EDT 10/23/2023 4:45 AM EDT us Chad Mcclure MD LAB BLOOD ORDERABLES Final Resul t [facility] [address] [place] [id number] * (ABNORMAL) CBC and Differential (10/23/2023 4:07 AM EDT) WBC Count 4.82 3.70 - 10.30 10*3/uL LAB HEMATOLOGY METHOD 10/23/2023 4:35 AM EDT [facility] RBC Count 4.69 3.90 - 5.20 10*6/uL LAB HEMATOLOGY METHOD 10/23/2023 4:35 AM EDT [facility] HGB 11.7 11.2 - 15.7 g/dL LAB HEMATOLOGY METHOD 10/23/2023 4:35 AM EDT [facility] HCT 36.7 34.0 - 45.0 % LAB HEMATOLOGY METHOD 10/23/2023 4:35 AM EDT [facility] Platelet Count 247 155 - 369 10*3/uL LAB HEMATOLOGY METHOD 10/23/2023 4:35 AM EDT [facility] MCV 78(L) 79 - 98 fL LAB HEMATOLOGY METHOD 10/23/2023 4:35 AM EDT [facility] MCH 24.9(L) 26.0 - 32.0 pg LAB HEMATOLOGY METHOD 10/23/2023 4:35 AM EDT [facility] MCHC 31.9 30.7 - 35.5 g/dL LAB HEMATOLOGY METHOD 10/23/2023 4:35 AM EDT [facility] RDW 17.4(H) 11.5 - 14.5 % LAB HEMATOLOGY METHOD 10/23/2023 4:35 AM EDT [facility] MPV 9.8 8.8 - 12.5 fL LAB HEMATOLOGY METHOD 10/23/2023 4:35 AM EDT [facility] nRBC 0.0 <=0.0 per 100 WBCs LAB HEMATOLOGY METHOD 10/23/2023 4:35 AM EDT [facility] Differential Type Automated LAB HEMATOLOGY METHOD 10/23/2023 4:35 AM EDT [facility] Neutrophils % 62.0 % LAB HEMATOLOGY METHOD 10/23/2023 4:35 AM EDT [facility] Lymphocytes % 31.0 % LAB HEMATOLOGY METHOD 10/23/2023 4:35 AM EDT [facility] Monocytes % 4.0 % LAB HEMATOLOGY METHOD 10/23/2023 4:35 AM EDT [facility] Eosinophils % 2.0 % LAB HEMATOLOGY METHOD 10/23/2023 4:35 AM EDT [facility] Basophils % 1.0 % LAB HEMATOLOGY METHOD 10/23/2023 4:35 AM EDT [facility] Immature Granulocytes % 0.0 % LAB HEMATOLOGY METHOD 10/23/2023 4:35 AM EDT [facility] Neutrophils Absolute 3.02 1.60 - 6.10 10*3/uL LAB HEMATOLOGY METHOD 10/23/2023 4:35 AM EDT [facility] Lymphocytes Absolute 1.47 1.20 - 3.90 10*3/uL LAB HEMATOLOGY METHOD 10/23/2023 4:35 AM EDT [facility] Monocytes Absolute 0.20(L) 0.30 - 0.90 10*3/uL LAB HEMATOLOGY METHOD 10/23/2023 4:35 AM EDT [facility] Eosinophils Absolute 0.08 0.00 - 0.50 10*3/uL LAB HEMATOLOGY METHOD 10/23/2023 4:35 AM EDT [facility] Basophils Absolute 0.03 0.00 - 0.10 10*3/uL LAB HEMATOLOGY METHOD 10/23/2023 4:35 AM EDT [facility] Immature Granulocytes Absolute 0.02 0.00 - 0.06 10*3/uL LAB HEMATOLOGY METHOD 10/23/2023 4:35 AM EDT [facility] Blood Venous blood specimen / Unknown Venipuncture / Unknown 10/23/2023 4:07 AM EDT 10/23/2023 4:32 AM EDT Narrative [facility] - 10/23/2023 4:35 AM EDT Therapeutic decision making should be based on absolute values, rather than percentages. us Chad Mcclure MD LAB BLOOD ORDERABLES Final Resul t [facility] [address] [place] [address] documented in this encounter Visit Diagnoses Diagnosis Abdominal pain, epigastric- Primary Abdominal pain, epigastric Nausea and vomiting, unspecified vomiting type Intractable abdominal pain History of acute pancreatitis documented in this encounter Admitting Diagnoses Diagnosis Abdominal pain, epigastric documented in this encounter Administered Medications Inactive Administered Medications - up to 3 most recent administrations Medication Order MAR Action Action Date Dose Rate Site acetaminophen (Tylenol) tablet 650 mg 650 mg, Oral, Every 4 hours scheduled, First dose on Thu10/23/23 at 1200, Until Discontinued, STAT Given 10/28/2023 11:55 AM EDT 650 mg Given 10/28/2023 10:00 AM EDT 650 mg Given 10/27/2023 9:27 PM EDT 650 mg dextrose 5 % and lactated Ringer's infusion 100 mL/hr, Intravenous, Continuous, Starting on Thu10/23/23 at 2024, Until 10/24/23 at 1808, Routine New Bag 10/24/2023 2:25 PM EDT 100 mL/hr 100 mL /hr Rate/Dose Change 10/24/2023 1:35 PM EDT 100 mL/hr 100 mL/ hr New Bag 10/23/2023 9:12 PM EDT 125 mL/hr 125 mL/hr DULoxetine (Cymbalta) DR capsule 60 mg 60 mg, Oral, Daily, First dose on Thu10/24/23 at 1025, Until Discontinued, Routine Given 10/28/2023 10:00 AM EDT 60 mg Given 10/26/2023 8:15 AM EDT 60 mg enoxaparin (Lovenox) syringe 40 mg 40 mg, Subcutaneous, Daily, First dose on Thu10/24/23 at 1340, Until Discontinued, Routine Given 10/26/2023 8:14 AM EDT 40 mg Left Lower Abdomen Given 10/25/2023 8:55 AM EDT 40 mg Ri ght Upper Abdomen Given 10/24/2023 2:24 PM EDT 40 mg Le ft Upper Abdomen gadobutrol (Gadavist) injection 9.8 mmol 9.8 mmol (rounded from 9.75 mmol = 0.1 mL/kg ? 97.5 kg), Intravenous, Once in imaging, 1 dose, Starting on Thu10/27/23 at 2218, Until Thu10/27/23 at 2259, Routine, Imaging Protocol Orders Given 10/27/2023 10:59 PM EDT 9.8 mmol HYDROmorphone (Dilaudid) injection 0.5 mg 0.5 mg, Intravenous, Once, 1 dose, On Thu10/25/23 at 2130, Routine Given 10/25/2023 9:30 PM EDT 0.5 mg HYDROmorphone (Dilaudid) injection 0.5 mg 0.5 mg, Intravenous, Once, 1 dose, On Thu10/27/23 at 0000, Routine Given 10/26/2023 11:44 PM EDT 0.5 mg ketamine (Ketalar) 9.8 mg in sodium chloride 0.9 % 50 mL IVPB 9.8 mg (rounded from 9.75 mg = 0.1 mg/kg ? 97.5 kg), Intravenous, Every 8 hours, 9 doses, First dose on Thu10/24/23 at 1030, Last dose on Thu10/27/23 at 0430, at 223.9 mL/hr, Administer over 15 Minutes, Routine New Bag 10/24/2023 12:28 PM EDT 9.8 mg 223.9 mL/h r ketorolac (Toradol) injection 15 mg 15 mg, Intravenous, Once, 1 dose, On Thu10/23/23 at 0505, STAT Given 10/23/2023 5:16 AM EDT 15 mg ketorolac (Toradol) injection 15 mg 15 mg, Intravenous, Every 6 hours PRN, Starting on Thu10/23/23 at 1200, Until Thu10/23/23 at 1046, STAT, severe pain Given 10/23/2023 10:38 AM EDT 15 mg ketorolac (Toradol) injection 15 mg 15 mg, Intravenous, Every 6 hours PRN, Starting on Thu10/23/23 at 1000, Until Thu10/23/23 at 2019, STAT, severe pain Given 10/23/2023 6:25 PM EDT 15 mg ketorolac (Toradol) injection 15 mg 15 mg, Intravenous, Every 6 hours PRN, Starting on Thu10/23/23 at 2016, Until Thu10/24/23 at 0815, STAT, moderate pain Given 10/24/2023 4:46 AM EDT 15 mg ketorolac (Toradol) injection 15 mg 15 mg, Intravenous, Once, 1 dose, On Thu10/27/23 at 1915, Routine Given 10/27/2023 7:27 PM EDT 15 mg lactated Ringer's infusion 1,000 mL 1,000 mL, Intravenous, Once (Bolus), 1 dose, On Thu10/23/23 at 0505, STAT New Bag 10/23/2023 5:16 AM EDT 1,000 mL lactated Ringer's infusion 146 mL/hr, Intravenous, Continuous, Starting on Thu10/23/23 at 0800, Until Thu10/23/23 at 2004, Routine New Bag 10/23/2023 8:05 AM EDT 146 mL/hr 146 mL /hr lidocaine (Lidoderm) 5 % patch 2 patch 2 patch, Apply externally, Every 24 hours, First dose on Thu10/27/23 at 1430, Until Discontinued, Administer over 12 Hours, Routine LORazepam (Ativan) tablet 0.5 mg 0.5 mg, Oral, Once, 1 dose, On Thu10/27/23 at 2200, Routine Given 10/27/2023 9:42 PM EDT 0.5 mg morphine PF 2 mg 2 mg, Intravenous, Once, 1 dose, On Thu10/23/23 at 1525, Routine Given 10/23/2023 3:30 PM EDT 2 mg morphine PF 2 mg 2 mg, Intravenous, Every 8 hours PRN, Starting on Thu10/23/23 at 2343, Until 10/24/23 at 1021, STAT, severe pain, only if failed oxycodone and ketorolac Given 10/24/2023 4:46 AM EDT 2 mg morphine PF 4 mg 4 mg, Intravenous, Once, 1 dose, On Thu10/23/23 at 0545, STAT Given 10/23/2023 5:57 AM EDT 4 mg morphine PF 4 mg 4 mg, Intravenous, Every 4 hours PRN, Starting on Thu10/23/23 at 0753, Until Thu10/23/23 at 1045, Routine, moderate pain, severe pain Given 10/23/2023 8:30 AM EDT 4 mg morphine PF 4 mg 4 mg, Intravenous, Every 6 hours PRN, Starting on Thu10/23/23 at 2015, Until Thu10/23/23 at 2340, STAT, severe pain Given 10/23/2023 9:12 PM EDT 4 mg morphine PF 4 mg 4 mg, Intravenous, Every 4 hours PRN, Starting on Thu10/24/23 at 1020, Until Thu10/26/23 at 0808, STAT, severe pain, only if failed oxycodone and ketorolac Given 10/26/2023 4:31 AM EDT 4 mg Given 10/26/2023 12:14 AM EDT 4 mg Given 10/25/2023 5:41 PM EDT 4 mg morphine PF 4 mg 4 mg, Intravenous, Every 8 hours PRN, Starting on Thu10/26/23 at 0808, Until Thu10/26/23 at 1443, STAT, severe pain, only if failed oxycodone and ketorolac Given 10/26/2023 12:34 PM EDT 4 mg morphine PF 4 mg 4 mg, Intravenous, Every 6 hours PRN, Starting on Thu10/26/23 at 1442, Until Thu10/28/23 at 1620, STAT, severe pain, only if failed oxycodone and ketorolac Given 10/28/2023 11:54 AM EDT 4 mg Given 10/28/2023 12:35 AM EDT 4 mg Given 10/27/2023 6:37 PM EDT 4 mg ondansetron (Zofran) injection 4 mg 4 mg, Intravenous, Once, 1 dose, On Thu10/23/23 at 0505, STAT Given 10/23/2023 5:13 AM EDT 4 mg ondansetron (Zofran) injection 4 mg 4 mg, Intravenous, Once, 1 dose, On Thu10/23/23 at 0710, STAT Given 10/23/2023 7:14 AM EDT 4 mg ondansetron (Zofran) injection 4 mg 4 mg, Intravenous, Every 6 hours PRN, Starting on Thu10/23/23 at 0744, Until Thu10/28/23 at 1620, STAT, nausea, vomiting Given 10/28/2023 11:54 AM EDT 4 mg Given 10/28/2023 2:44 AM EDT 4 mg Given 10/27/2023 9:04 AM EDT 4 mg oxyCODONE (Roxicodone) immediate release tablet 10 mg 10 mg, Oral, Every 4 hours PRN, Starting on 10/24/23 at 1813, Until Thu10/28/23 at 1620, STAT, severe pain Given 10/28/2023 10:23 AM EDT 10 mg Given 10/28/2023 2:44 AM EDT 10 mg Given 10/27/2023 9:27 PM EDT 10 mg oxyCODONE (Roxicodone) immediate release tablet 5 mg 5 mg, Oral, Every 6 hours scheduled, First dose on Thu10/23/23 at 1200, Until Discontinued, STAT Given 10/23/2023 6:24 PM EDT 5 mg Given 10/23/2023 11:07 AM EDT 5 mg oxyCODONE (Roxicodone) immediate release tablet 5 mg 5 mg, Oral, Every 4 hours PRN, Starting on Thu10/23/23 at 2340, Until 10/24/23 at 1813, STAT, severe pain Given 10/24/2023 6:12 PM EDT 5 mg Given 10/24/2023 2:24 PM EDT 5 mg Given 10/24/2023 9:47 AM EDT 5 mg oxyCODONE (Roxicodone) immediate release tablet 5 mg 5 mg, Oral, Once, 1 dose, On Thu10/24/23 at 1845, Routine Given 10/24/2023 6:41 PM EDT 5 mg oxyCODONE (Roxicodone) immediate release tablet 5 mg 5 mg, Oral, Once, 1 dose, On Thu10/27/23 at 1715, Routine Given 10/27/2023 5:12 PM EDT 5 mg pancrelipase (Creon) 48117 units capsule 2 capsule, Oral, 3 times daily with meals, First dose on Thu10/25/23 at 1730, Until Discontinued, Routine Given 10/28/2023 12:07 PM EDT 2 capsules Given 10/28/2023 10:00 AM EDT 2 capsules Given 10/27/2023 1:20 PM EDT 2 capsules pantoprazole (Protonix) EC tablet 40 mg 40 mg, Oral, Daily, First dose on Thu10/23/23 at 1105, Until Discontinued, Routine Given 10/28/2023 10:00 AM EDT 40 mg Given 10/27/2023 9:04 AM EDT 40 mg Given 10/26/2023 8:14 AM EDT 40 mg polyethylene glycol (Miralax) packet 17 g 17 g, Oral, Daily, First dose on Thu10/24/23 at 0900, Until Discontinued, Routine Given 10/28/2023 10:00 AM EDT 17 g Given 10/27/2023 9:04 AM EDT 17 g Given 10/26/2023 8:14 AM EDT 17 g pregabalin (Lyrica) capsule 100 mg 100 mg, Oral, 3 times daily, First dose on Thu10/23/23 at 0755, Until Discontinued, Routine Given 10/23/2023 3:12 PM EDT 100 mg Given 10/23/2023 8:05 AM EDT 100 mg pregabalin (Lyrica) capsule 200 mg 200 mg, Oral, 2 times daily, First dose (after last modification) on Thu10/25/23 at 2100, Until Discontinued, Routine Given 10/28/2023 10:00 AM EDT 200 mg Given 10/27/2023 9:27 PM EDT 200 mg Given 10/27/2023 9:04 AM EDT 200 mg pregabalin (Lyrica) capsule 300 mg 300 mg, Oral, 2 times daily, First dose (after last modification) on Thu10/23/23 at 2100, Until Discontinued, Routine Given 10/25/2023 8:50 AM EDT 300 mg Given 10/24/2023 8:47 PM EDT 300 mg Given 10/24/2023 9:48 AM EDT 300 mg promethazine (Phenergan) 6.25 MG/5ML solution 12.5 mg 12.5 mg, Oral, Every 4 hours PRN, Starting on Thu10/27/23 at 1409, Until Thu10/28/23 at 1620, Routine, nausea, vomiting promethazine (Phenergan) suppository 12.5 mg 12.5 mg, Rectal, Every 6 hours PRN, Starting on Thu10/23/23 at 0744, Until Thu10/28/23 at 1620, Routine, nausea, vomiting Given 10/26/2023 10:03 PM ED T 12.5 mg Given 10/24/2023 2:32 PM EDT 12.5 mg Given 10/24/2023 5:43 AM EDT 12.5 mg promethazine (Phenergan) tablet 12.5 mg 12.5 mg, Oral, Every 4 hours PRN, Starting on Thu10/27/23 at 1409, Until Thu10/28/23 at 1620, Routine, nausea, vomiting senna (Senokot) tablet 8.6 mg 8.6 mg, Oral, Nightly, First dose on Thu10/23/23 at 2345, Until Discontinued, Routine Given 10/27/2023 9:27 PM EDT 8.6 mg Given 10/26/2023 8:20 PM EDT 8.6 mg Given 10/25/2023 9:02 PM EDT 8.6 mg documented in this encounter Active and Recently Administered Medications Times are shown in EDT. Scheduled Medication Order 10/26/2023 10/27/2023 10/28/2023 acetaminophen (Tylenol) tablet 650 mg 650 mg, Oral, Every 4 hours scheduled, First dose on Thu10/23/23 at 1200, Until Discontinued, STAT 0017 (Not Given - Provider: Dorys Mcmanus LPN - Reason: Patient/family refused)0436 (Not Given - Provider: Dorys Mcmanus LPN - Reason: Patient/family refused)0814 (Given - Provider: Lorena Lucas)1233 (Given - Provider: Lornea Lucas)1620 (Given - Provider: Lorena Lucas)2020 (Given - Provider: Dorys Mcmanus LPN)2346 (Not Given - Provider: Dorys Mcmanus LPN - Reason: Patient/family refused) 0502 (Not Given - Provider: Dorys Mcmanus LPN - Reason: Patient/family refused)0903 (Given - Provider: Lorena Lucas)1108 (Given - Provider: Lorena Lucas)1531 (Given - Provider: Lorena Lucas)2127 (Given - Provider: Dorys Mcmanus LPN) 0036 (Not Given - Provider: Dorys Mcmanus LPN - Reason: Patient/family refused)0458 (Not Given - Provider: Dorys Mcmanus LPN - Reason: Patient/family refused)1000 (Given - Provider: Ariana Lua, CHANDNI)1155 (Given - Provider: Ariana Lua RN)1600 (Canceled Entry - Provider: Automatic Discharge Provider - Comment: Automatically canceled at discontinue of medication order) DULoxetine (Cymbalta) DR capsule 60 mg 60 mg, Oral, Daily, First dose on 10/24/23 at 1025, Until Discontinued, Routine 0815 (Given - Provider: Lorena Lucas) 0911 (Not Given - Provider: Lorena Lucas - Reason: Patient/family refused) 1000 (Given - Provider: Ariana Lua, CHANDNI) enoxaparin (Lovenox) syringe 40 mg 40 mg, Subcutaneous, Daily, First dose on 10/24/23 at 1340, Until Discontinued, Routine 0814 (Given - Provider: Lorena Lucas) 0911 (Not Given - Provider: Lorena Lucas - Reason: Patient/family refused) 1000 (Not Given - Provider: Ariana Lua, CHANDNI - Reason: Patient/family refused - Comment: ambulates) gadobutrol (Gadavist) injection 9.8 mmol (COMPLETED) 9.8 mmol (rounded from 9.75 mmol = 0.1 mL/kg ? 97.5 kg), Intravenous, Once in imaging, 1 dose, Starting on Thu10/27/23 at 2218, Until Thu10/27/23 at 2259, Routine, Imaging Protocol Orders 2259 (Given - Provider: Hosea Norris) HYDROmorphone (Dilaudid) injection 0.5 mg (COMPLETED) 0.5 mg, Intravenous, Once, 1 dose, On Thu10/27/23 at 0000, Routine 2344 (Given - Provider: Dorys Mcmanus LPN) ketorolac (Toradol) injection 15 mg (COMPLETED) 15 mg, Intravenous, Once, 1 dose, On Thu10/27/23 at 1915, Routine 1927 (Given - Provider: Dorys Mcmanus LPN) lidocaine (Lidoderm) 5 % patch 2 patch 2 patch, Apply externally, Every 24 hours, First dose on Thu10/27/23 at 1430, Until Discontinued, Administer over 12 Hours, Routine 1531 (Not Given - Provider: Lorena Lucas - Reason: Patient/family refused) 1430 (Canceled Entry - Provider: Automatic Discharge Provider - Comment: Automatically canceled at discontinue of medication order) LORazepam (Ativan) tablet 0.5 mg (COMPLETED) 0.5 mg, Oral, Once, 1 dose, On Thu10/27/23 at 2200, Routine 2142 (Given - Provider: Dorys Mcmanus LPN) oxyCODONE (Roxicodone) immediate release tablet 5 mg (COMPLETED)(Linked Group 1) 5 mg, Oral, Once, 1 dose, On Thu10/27/23 at 1715, Routine 1712 (Given - Provider: Lorena Lucas) pancrelipase (Creon) 31367 units capsule 2 capsule, Oral, 3 times daily with meals, First dose on Thu10/25/23 at 1730, Until Discontinued, Routine 0814 (Given - Provider: Lorena Lucas)1233 (Given - Provider: Lorena Lucas)1632 (Not Given - Provider: Lorena Lucas - Reason: Patient/family refused) 0904 (Given - Provider: Lorena Lucas)1320 (Given - Provider: Lorena Lucas)1708 (Not Given - Provider: Lorena Lucas - Reason: NPO) 1000 (Given - Provider: Ariana Lua RN)1207 (Given - Provider: Ariana Lua RN) pantoprazole (Protonix) EC tablet 40 mg 40 mg, Oral, Daily, First dose on Thu10/23/23 at 1105, Until Discontinued, Routine 08 (Given - Provider: Lorena Lucas) 09 (Given - Provider: Lorena Lucas) 1000 (Given - Provider: Ariana Lua, RN) polyethylene glycol (Miralax) packet 17 g 17 g, Oral, Daily, First dose on Thu10/24/23 at 0900, Until Discontinued, Routine 08 (Given - Provider: Lorena Lucas) 09 (Given - Provider: Lorena Lucas) 1000 (Given - Provider: Ariana Lua, CHANDNI) pregabalin (Lyrica) capsule 200 mg 200 mg, Oral, 2 times daily, First dose (after last modification) on Thu10/25/23 at 2100, Until Discontinued, Routine 0934 (Given - Provider: Lorena Lucas)2019 (Given - Provider: Dorys Mcmanus LPN) 903 (Given - Provider: Lorena Lucas)2126 (Given - Provider: Dorys Mcmanus LPN) 1000 (Given - Provider: Ariana Lua, CHANDNI) senna (Senokot) tablet 8.6 mg 8.6 mg, Oral, Nightly, First dose on Thu10/23/23 at 2345, Until Discontinued, Routine 2019 (Given - Provider: Dorys Mcmanus LPN) 2126 (Given - Provider: Dorys Mcmanus LPN) PRN Medication Order 10/26/2023 10/27/2023 10/28/2023 morphine PF 4 mg (CANCELED) 4 mg, Intravenous, Every 4 hours PRN, Starting on 10/24/23 at 1020, Until Thu10/26/23 at 0808, STAT, severe pain, only if failed oxycodone and ketorolac 0014 (Given - Provider: Dorys Mcmanus LPN)0431 (Given - Provider: Dorys Mcmanus LPN) morphine PF 4 mg (CANCELED) 4 mg, Intravenous, Every 8 hours PRN, Starting on 10/26/23 at 0808, Until Thu10/26/23 at 1443, STAT, severe pain, only if failed oxycodone and ketorolac 1039 [facility]: Lorena Lucas)1234 (Given - Provider: Lorena Lucas) morphine PF 4 mg 4 mg, Intravenous, Every 6 hours PRN, Starting on 10/26/23 at 1442, Until Thu10/28/23 at 1620, STAT, severe pain, only if failed oxycodone and ketorolac 1835 (Given - Provider: Lorena Lucas) 0238 (Given - Provider: Dorys Mcmanus LPN)1108 (Given - Provider: Lorena Lucas)1837 (Given - Provider: Lorena Lucas) 0035 (Given - Provider: Dorys Mcmanus LPN)1154 (Given - Provider: Ariana Lua, RN) ondansetron (Zofran) injection 4 mg(Linked Group 2) 4 mg, Intravenous, Every 6 hours PRN, Starting on Thu10/23/23 at 0744, Until Thu10/28/23 at 1620, STAT, nausea, vomiting 0235 (Given - Provider: Dorys Mcmanus LPN)0818 (Given - Provider: Lorena Lucas)1621 (Given - Provider: Lorena Lucas)2203 (See Alternative - Provider: Dorys Mcmanus LPN) 0904 (Given - Provider: Lorena Lucas) 0244 (Given - Provider: Dorys Mcmanus LPN)1154 (Given - Provider: Ariana Lua, RN) oxyCODONE (Roxicodone) immediate release tablet 10 mg 10 mg, Oral, Every 4 hours PRN, Starting on Thu10/24/23 at 1813, Until Thu10/28/23 at 1620, STAT, severe pain 0235 (Given - Provider: Dorys Mcmanus LPN)0639 (Given - Provider: Dorys Mcmanus LPN)1104 (Given - Provider: Lorena Lucas)1620 (Given - Provider: Lorena Lucas)2020 (Given - Provider: Dorys Mcmanus LPN) 0111 (Given - Provider: Dorys Mcmanus LPN)0904 (Given - Provider: Lorena Lucas)1319 (Given - Provider: Lorena Lucas)1723 (Given - Provider: Lorena Lucas)2127 (Given - Provider: Dorys Mcmanus LPN) 0244 (Given - Provider: Dorys Mcmanus LPN)1023 (Given - Provider: Ariana Lua, RN) promethazine (Phenergan) 6.25 MG/5ML solution 12.5 mg(Linked Group 3) 12.5 mg, Oral, Every 4 hours PRN, Starting on Thu10/27/23 at 1409, Until Thu10/28/23 at 1620, Routine, nausea, vomiting promethazine (Phenergan) suppository 12.5 mg(Linked Group 2) 12.5 mg, Rectal, Every 6 hours PRN, Starting on Thu10/23/23 at 0744, Until Thu10/28/23 at 1620, Routine, nausea, vomiting 0235 (See Alternative - Provider: Dorys Mcmanus LPN)0818 (See Alternative - Provider: Lorena Lucas)1621 (See Alternative - Provider: Lorena Lucas)2203 (Given - Provider: Dorys Mcmanus LPN) 0904 (See Alternative - Provider: Lorena Lucas) 0244 (See Alternative - Provider: Dorys Mcmanus LPN)1154 (See Alternative - Provider: Ariaan Lua RN) promethazine (Phenergan) tablet 12.5 mg(Linked Group 3) 12.5 mg, Oral, Every 4 hours PRN, Starting on Thu10/27/23 at 1409, Until Thu10/28/23 at 1620, Routine, nausea, vomiting Linked Groups Order Group 1: oxyCODONE (Roxicodone) immediate release tablet 5 mg (COMPLETED)Jump to med 5 mg, Oral, Once, 1 dose, On Thu10/27/23 at 1715, Routine Or oxyCODONE (Roxicodone) immediate release tablet 10 mg (COMPLETED) 10 mg, Oral, Once, 1 dose, On Thu10/27/23 at 1715, Routine Group 2: promethazine (Phenergan) suppository 12.5 mgJump to med 12.5 mg, Rectal, Every 6 hours PRN, Starting on Thu10/23/23 at 0744, Until Thu10/28/23 at 1620, Routine, nausea, vomiting Or ondansetron (Zofran) injection 4 mgJump to med 4 mg, Intravenous, Every 6 hours PRN, Starting on Thu10/23/23 at 0744, Until Thu10/28/23 at 1620, STAT, nausea, vomiting Group 3: promethazine (Phenergan) tablet 12.5 mgJump to med 12.5 mg, Oral, Every 4 hours PRN, Starting on Thu10/27/23 at 1409, Until Thu10/28/23 at 1620, Routine, nausea, vomiting Or promethazine (Phenergan) 6.25 MG/5ML solution 12.5 mgJump to med 12.5 mg, Oral, Every 4 hours PRN, Starting on Thu10/27/23 at 1409, Until Thu10/28/23 at 1620, Routine, nausea, vomiting documented in this encounter Additional Health Concerns Assessment Noted Time A fall risk assessment has been complete d for the patient 11/21/2020 2:30 PM EDT A Body Mass Index follow-up plan has been documented for the patient 10/28/2023 1:22 PM EDT documented as of this encounter Care Teams Archaeology Professor Relationship Specialty Start Date End Date Lisa Foote, WEEDER [address] [place], [place] [id number] PCP - General 10/23/23 documented as of this encounter
--- OUTSIDE RECORDS SUMMARY | 2024-02-03 15:10 | XMS_ITS | Encounter Summary ---
Author Organization Healthcare Address [address] [place] [address] Care Team Providers Care Trimming Cutter Machine Name Role Phone [place] CityCitlali lowe Gilberto ORELLANA Primary Care Provider [phone] Reason for Visit * Reason Comments Abdominal Pain Encounter Details Date Type Department Care Team (Late st Contact Info) Description 10/13/2023 8:35 AM EDT - 10/13/2023 9:45 AM EDT Emergency [facility] [address] [place] [address] George Martinez MD [address] [place] [address] Abdominal pain, epigastric (Primary Dx) Discharge Disposition: Home or Self [...] in a skilled nursing (including now)? 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) to steady your nerves or to [...] Sign Reading Time Taken Comments Blood Pressure 145/95 10/13/2023 8:34 AM EDT Pulse 93 10/13/2023 8:34 AM EDT Temperature 36.9 ??C (98.4 ??F) 10/13/2023 8:34 AM ED T Respiratory Rate 16 10/13/2023 8:34 AM EDT Oxygen Saturation 95% 10/13/2023 8:34 AM EDT Inhaled Oxygen Concentration - - Weight 96.5 kg (212 lb 11.9 oz) 10/13/2023 8:32 AM EDT Height - - Body Mass Index 35.4 07/03/2023 9:35 AM EDT documented in this encounter Functional [...] encounter Discharge Instructions * Discharge Instructions* George Martinez MD - 10/13/2023 9:30 AM EDT At this time we have sent a few more doses of your medication to the pharmacy. If your symptoms worsen and you have any concerns your always welcome to return for repeat evaluation. documented in this encounter Medications at Time of Discharge pantoprazole (Protonix) 40 MG EC tablet Take 1 tablet (40 mg) by mouth 1 (one) time each day. Do not crush, chew, or split. cholecalciferol (Vitamin D3) 125 MCG (5000 UT) capsule Take 1 capsule (5,000 Units) by mouth 1 (one) time each day. 4 cyanocobalamin 1000 MCG tablet Take 1 tablet (1,000 mcg) by mouth 1 (one) time each day. 4 doxylamine (Unisom) 25 MG tablet Take 1 tablet (25 mg) by mouth at night if needed for nausea. 30 tablet 06/04/2023 4 DULoxetine (Cymbalta) [address] capsule Take 1 capsule (60 mg) by mouth 1 (one) time each day. Do not crush or chew. 30 capsule 02/23/2023 4 famotidine (Pepcid) 20 MG tablet Take 1 tablet (20 mg) by mouth 2 (two) times a day for 14 days. 28 tablet 10/07/2023 4 ibuprofen 200 MG tablet Take 2-4 tablets (400-800 mg) by mouth 1 (one) time each day if needed for mild pain. 4 Lidocaine (HM Lidocaine Patch) 4 % patch Apply 1 patch topically 2 (two) times a day if needed (Left shoulder). 4 LORazepam (Ativan) 2 MG tablet Take 1 tablet (2 mg) by mouth 2 (two) times a day. 4 Melatonin 10 MG capsule Take 10 mg by mouth at night if needed (for sleep). 4 naloxone (Kloxxado) 8 mg/0.1 mL nasal spray 1. Give 1 spray in nostril for no/slow breathing or cannot wake after opioid use 2. Call 911 3. Repeat in other nostril if symptoms continue 1 each 02/23/2023 4 ondansetron ODT (Zofran-ODT) 4 MG disintegrating tablet Take 1 tablet (4 mg) by mouth every 6 (six) hours if needed for nausea or vomiting. 12 tablet 10/07/2023 4 oxyCODONE (Roxicodone) 5 MG immediate release tablet Take 1 tablet (5 mg) by mouth every 8 (eight) hours if needed (pain). 4 tablet 10/13/2023 4 pancrelipase, Csu-Mnvy-Ktrk, (Creon) 6000-73929 units capsule Take 1 capsule by mouth 3 (three) times a day with meals. 4 pregabalin (Lyrica) 100 MG capsule Take 1 capsule (100 mg) by mouth 3 (three) times a day. 4 multivitamin (Trinatal Rx 1) 60-1 MG tablet tablet Take 1 tablet by mouth 1 (one) time each day. 30 tablet 06/12/2023 4 promethazine (Phenergan) 25 MG tablet Take 1 tablet (25 mg) by mouth every 6 (six) hours if needed for nausea or vomiting. 4 promethazine (Phenergan) 25 MG tablet Take 1 tablet (25 mg) by mouth every 8 (eight) hours if needed for nausea or vomiting. 21 tablet 10/13/2023 4 pyridoxine (B-6) 50 MG tablet Take 1 tablet (50 mg) by mouth 1 (one) time each day if needed (nausea, vomiting). 30 tablet 06/04/2023 4 sucralfate (Carafate) 1 GM/10ML suspension Take 10 mL (1 g) by mouth every 6 (six) hours. 4 documented as of this encounter Miscellaneous Notes * ED Provider Notes - George Martinez MD - 10/13/2023 8:16 AM EDT Images from the original note were not included. - HPI Chief Complaint Patient presents with Abdominal Pain Lila Mcnally is a 37 y.o. female with a past medical history significant for anxiety, depression, HTN, GERD, gastric erosion, pancreatitis who presents today via private vehicle to the emergency department with Abdominal Pain. Pt was seen at [facility] ED on 10/06 and diagnosed with an acute flare of chronic pancreatitis. Pt reports she was eating very little and pain improved. Yesterday after eatingair- fried pork and potatoes pt developed increasing LUQ/epigastric abdominal pain that radiates into left flank. Last emesis episode was yesterday morning. Pt states taking ibuprofen, tylenol, famotidine, and zofran with some symptoms relief. She endorses being out of oxycodone and phenergan since 10/10. Patient denies fever, chills, headache, cough, chest pain, shortness of breath, BLE swelling, diarrhea, changes to bowel habits, and urinary symptoms. Pt has no other acute complaints at this time. 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 by: Patient interpreter for the deaf used: No Patient History Past Medical History: Diagnosis Date Anxiety Arthritis Depression Fibromyalgia Gastric erosions 04/19/2021 GERD (gastroesophageal reflux disease) Hypertension Intentional overdose ([facility]) 12/20/2021 Nicotine dependence [...] attacks too. Physical Exam ED Triage Vitals [10/13/23 0834] Temp Heart Rate Resp BP 36.9 ??C (98.4 ??F) 93 16 (!) 145/95 SpO2 Temp Source Heart Rate Source Patient Position 95 % Oral -- -- BP Location FiO2 (%) -- -- Physical Exam Vitals and nursing note reviewed. Constitutional: General: She is not in acute distress. HENT: Head: Normocephalic. Right Ear: External ear normal. Left Ear: External ear normal. Nose: Nose normal. No rhinorrhea. Mouth/Throat: Mouth: Mucous membranes are moist. Eyes: Extraocular Movements: Extraocular movements intact. Conjunctiva/sclera: Conjunctivae normal. Cardiovascular: Rate and Rhythm: Normal rate and regular rhythm. Pulmonary: Effort: Pulmonary effort is normal. No respiratory distress. Abdominal: General: Abdomen is flat. There is no distension. Tenderness: There is abdominal tenderness in the epigastric area and left upper quadrant. Musculoskeletal: General: No deformity. Cervical back: Normal range of motion and neck supple. Skin: General: Skin is warm and dry. Coloration: Skin is not jaundiced or pale. Neurological: General: No focal deficit present. Mental Status: She is alert and oriented to person, place, and time. No data recorded ED Course & MDM - Clinical Impressions as of 10/13/23 1041 Abdominal pain, epigastric Lila Mcnally is a 37 yrs old female presents today for Chief Complaint Patient presents with Abdominal Pain . Summary of ED Care: Patient is a 37-year-old female well known to this emergency department for bouts of acute on chronic flares of abdominal pain. Suspected to be related to pancreatitis. Patient was seen in the emergency room 1 week ago and had a lipase level of 194 suggesting acute pancreatitis.However patient has been doing well with pain medications prescribed by both ER physician and urgent care in the last week. Patient has run out of pain medication and ate pork, potatoes and beans overnight and began having pain again. Patient states that she has not vomited since yesterday simply having severe pain. She was having normal vital signs by the time she arrived in the ER. Has modest abdominal tenderness on epigastric and left upper quadrant on exam. Provided her with dose of oral medications as we do not feel that repeat labs are indicated considering her otherwise well appearanceand lack of any changes on recent exam. Patient is okay with this plan. We gave her oral Phenergan and oxycodone and reassessed. Patient's pain is significantly improved. Requesting a smaller dose and is given an additional 5 mgon top of the 10 mg already given. Patient feels well enough to be discharged. Refilled the patient's Phenergan as well as gave her 4-5 additional oxycodone it is in the event of recurrence of pain so that she does not have to come to the ER. Patient is agreeable to plan was discharged Additional MDM Differential Diagnoses: Based on her history and physical exam, my differential diagnosis included pancreatitis, gastritis.Ruling out the most morbid conditions drove my clinical assessment. In order to fully explore differential these tests were ordered. Prior Records Review: External Records records for this patient including A Clinic Note from October 09 2023 from [facility] were reviewed and found to be pertinent. Records review indicates that Recent visit to discuss acute on chronic pancreatitis. Independent Results Review: Prescription Medication Management in ED and Reassessment: ED Medication Administration from 10/13/2023 0816 to 10/13/2023 1041 Date/Time Order Dose Route Action 10/13/2023 0848 EDT oxyCODONE (Roxicodone) immediate release tablet 10 mg 10 mg Oral Given 10/13/2023 0848 EDT promethazine (Phenergan) tablet 25 mg 25 mg Oral Given 10/13/2023 0941 EDT oxyCODONE (Roxicodone) immediate release tablet 5 mg 5 mg Oral Given Patient reevaluated after treatments listed above provided and condition improved with medications given. I discussed with the patient/family the value of prescribing Narcotic Prescription pain medicationsand we, through shared decision making, decided that these medications would benefit the patient based on todays illness. Consults and Discussions with other providers: Disposition: Ultimately, this patient Was discharged Home (Discharge) The encounter diagnosis was Abdominal pain, epigastric. . Patient was counseled on the diagnoses. Discharge medications if any are listed below. Listed medications are thought be either curative for listed diagnoses or will help control ongoing symptoms. Patient is requested to follow up with Patient's primary care provider in order to obtain routine follow-up. Instructions on follow up as well as precautions to return to the ER provided verbally by the EDMD, as well as written in patients discharge education packet. Specific instructions provided are as follows: Discharge Instructions At this time we have sent a few more doses of your medication to the pharmacy. If your symptoms worsen and you have any concerns your always welcome to return for repeat evaluation. Disposition Discharge AVS (Printed 10/13/2023) ED Prescriptions Medication Sig Dispense Start Date End Date Auth. Provider oxyCODONE (Roxicodone) 5 MG immediate release tablet Take 1 tablet (5 mg) by mouth every 8 (eight) hours if needed (pain). 4 tablet 10/13/2023 -- George Martinez MD promethazine (Phenergan) 25 MG tablet Take 1 tablet (25 mg) by mouth every 8 (eight) hours if needed for nausea or vomiting. 21 tablet 10/13/2023 -- George Martinez MD Discharge Instructions At this time we have sent a few more doses of your medication to the pharmacy. If your symptoms worsen and you have any concerns your always welcome to return for repeat evaluation. Disposition Discharge AVS (Printed 10/13/2023) Date/Time: 10/13/2023/10:41 AM Entered by Alexandria Horton, acting as scribe for Dr. Baumann att. providers found. Scribe Attestation: This note was dictated to me, Alexandria Horton, acting as a scribe for Dr. Baumann att. providers found. Attending Attestation: The documentation was recorded by Alexandria Horton acting as scribe in my presence at the time of the encounter and accurately reflects the service I personally performed. Discharge Instructions At this time we have sent a few more doses of your medication to the pharmacy. If your symptoms worsen and you have any concerns your always welcome to return for repeat evaluation. Disposition Discharge AVS (Printed 10/13/2023) - George Martinez MD 10/13/23 1041 * ED Triage Notes - Andrew Gonzalez RN - 10/13/2023 8:16 AM EDT Pt with c/o ongoing abd pain that radiates to left flank. States pain is worse after eating. Pt seen here for same a few days ago, dx with pancreatitis. documented in this encounter Plan of Treatment Not on file documented as of this encounter Visit Diagnoses Diagnosis Abdominal pain, epigastric- Primary documented in this encounter Administered Medications Inactive Administered Medications - up to 3 most recent administrations Medication Order MAR Action Action Date Dose Rate Site oxyCODONE (Roxicodone) immediate release tablet 10 mg 10 mg, Oral, Once, 1 dose, On Thu10/13/23 at 0845, STAT Given 10/13/2023 8:48 AM EDT 10 mg oxyCODONE (Roxicodone) immediate release tablet 5 mg 5 mg, Oral, Once, 1 dose, On Thu10/13/23 at 0930, STAT Given 10/13/2023 9:41 AM EDT 5 mg promethazine (Phenergan) tablet 25 mg 25 mg, Oral, Once, 1 dose, On Thu10/13/23 at 0845, STAT Given 10/13/2023 8:48 AM EDT 25 mg documented in this encounter Active and Recently Administered Medications Times are shown in EDT. Scheduled Medication Order 10/11/2023 10/12/2023 10/13/2023 oxyCODONE (Roxicodone) immediate release tablet 10 mg (COMPLETED) 10 mg, Oral, Once, 1 dose, On Thu10/13/23 at 0845, STAT 0848 (Given - Provid er: Angeles Palacios RN) oxyCODONE (Roxicodone) immediate release tablet 5 mg (COMPLETED) 5 mg, Oral, Once, 1 dose, On Thu10/13/23 at 0930, STAT 0941 (Given - Provid er: Angeles Palacios RN) promethazine (Phenergan) tablet 25 mg (COMPLETED) 25 mg, Oral, Once, 1 dose, On Thu10/13/23 at 0845, STAT 0848 (Given - Provid er: Angeles Palacios RN) documented in this encounter Additional Health Concerns Assessment Noted Time A fall risk assessment has been complete d for the patient 11/21/2020 2:30 PM EDT A Body Mass Index follow-up plan has been documented for the patient 04/14/2023 2:24 PM EST documented as of this encounter Care Teams Trimming Cutter Machine Relationship Specialty Start Date End Date Citlali Marquez, FINISHING LAB TECHNICIAN [address] [place] [id number] PCP - General Family Medicine 03/26/23 10/19/23 documented as of this encounter
--- OUTSIDE RECORDS SUMMARY | 2024-02-03 15:10 | XMS_ITS | Encounter Summary ---
Author Organization [facility] Address [address] [place] [address] Care Team Providers Care Hospitality Director Name Role Phone JimmyCitlali lowe Gilberto ORELLANA Primary Care Provider [phone] Encounter Details Date Type Department Care Team (Latest Contact Info) Description 10/19/2023 Travel Social History Tobacco Use Types Packs/Day [...] slept in a chcf (including now)? 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
--- OUTSIDE RECORDS SUMMARY | 2024-02-03 15:10 | XMS_ITS | Encounter Summary ---
Author Organization Healthcare Address [address] [place] [address] Care Team Providers Care Predictive Maintenance Technician Name Role Phone WoodbineCitlali lowe Gilberto ORELLANA Primary Care Provider [phone] Reason for Visit * Reason Comments Abdominal Pain Encounter Details Date Type Department Care Team (Late st Contact Info) Description 10/18/2023 8:31 AM EDT - 10/18/2023 1:13 PM EDT Emergency [facility] Emergency Department [address] [place] [address] Agnes Cooley MD [address] [place] [address] Abdominal pain, epigastric (Primary Dx); Nausea and [...] in a group home (including now)? 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 Take promethazine and zofran as needed at home for nausea/vomiting. Clear liquid diet for today and tomorrow--this should help with any abdominal discomfort or if there is an early pancreatitis brewing. Contact [facility] to help set up outpatient mental health care. You may have some depression and also the stress of current issues will make abdominal pain worse. Therapy can help allof these things. Return if worse. documented in this encounter Medications at Time [...] needed (pain). 4 tablet 10/13/2023 4 pancrelipase, Gyg-Nlcy-Mluk, (Creon) [id number] units capsule Take 1 capsule by mouth [...] as of this encounter Miscellaneous Notes * Val JaredJERICHO - Agnes Cooley MD - 10/18/2023 11:53 AM EDT Images from the original note were not included. [id number] Clear Liquid Diet Clear liquids are any liquid that you can see through. They are also very easy to digest. You may be put on a clear liquid diet if you are recovering from irritation or infection of the stomach or digestive tract. This diet may also be used before surgery or special procedures such as a colonoscopy. You shouldn't be on this diet for more than 3 days. Below are some clear liquids you can have on this diet. Adults and children older than 2 years Adults should drink a total of 2 to 3 quarts of liquid per day. It may be easier to drink small frequent servings rather than a few large ones. Clear liquids can include: ?? Clear fruit juices without pulp. Apple, white grape, and cranberry juice; clear fruit drinks. ?? Beverages. Sports drinks, sodas (no cola or root beer), mineral water (plain or flavored), tea, black coffee, liquid gelatin (add twice the advised amount of water). ?? Soups. Clear broth. ?? Desserts. Plain gelatin, frozen fruit juice bars without pulp or fruit pieces. Children younger than 2 years Oral rehydration fluids are available at drugstores and most grocery stores. You don?t need a prescription. Last Reviewed Date: 2021 ?? [id number] [employer]. All rights reserved. This information is not intended as a substitute for professional medical care. Always follow your healthcare professional's instructions. * ED Provider Notes - Agnes Cooley MD - 10/18/2023 8:14 AM EDT Images from the original note were not included. - HPI Chief Complaint Patient presents with Abdominal Pain Lila Mcnally is a 37 y.o. female with a history of anxiety, depression, fibromyalgia, GERD, HTN, and pancreatitis who presents to the ED with abdominal pain. Pt c/o diarrhea, hot flashes, nausea,and epigastric pain radiating into left back for the past week. Also c/o 3x vomiting in past 24 hours. States Zofran relieved symptoms, but is now out of meds. Pt endorses hx recurrent pancreatitis since cholecystectomy and ERCP in 2011, says current symptoms consistent with previous exacerbations.States she was established in pain clinic, but believed she would not be able to return for pain pump management after positive test and miscarriage 3 months ago, so has not returned there.Notes she has not called clinic to verify if new referral needed. Reports established PCP at [facility]. Endorses abdominal surgery hx significant for cholecystectomy, EGD, and 2x D&C. Denies vaginal bleeding, vaginal discharge, suprapubic pain, chills, burning with urination, or relief with tylenol/ibuprofen. No other complaints at this time. Patient History Past Medical History: Diagnosis Date Anxiety Arthritis Depression Fibromyalgia Gastric erosions 04/19/2021 GERD (gastroesophageal reflux disease) Hypertension Intentional overdose ([facility]) 12/20/2021 Nicotine dependence Obesity Pancreatitis Past [...] attacks too. Physical Exam ED Triage Vitals [10/18/23 0829] Temp Heart Rate Resp BP 36.9 ??C (98.5 ??F) (!) 132 16 (!) 140/89 SpO2 Temp Source Heart Rate Source Patient Position 99 % Oral -- -- BP Location FiO2 (%) -- -- Physical Exam Constitutional: General: She is not in acute distress. HENT: Head: Normocephalic. Comments: No facial swelling. No oral lesions Right Ear: External ear normal. Left Ear: External ear normal. Nose: Nose normal. Mouth/Throat: Mouth: Mucous membranes are moist. Pharynx: Oropharynx is clear. Eyes: General: No scleral icterus. Pupils: Pupils are equal, round, and reactive to light. Cardiovascular: Rate and Rhythm: Regular rhythm. Tachycardia present. Pulmonary: Effort: Pulmonary effort is normal. No respiratory distress. Breath sounds: Normal breath sounds and air entry. Comments: Speaking full sentences. Symmetric chest rise Abdominal: General: Abdomen is flat. There is no distension. Tenderness: There is abdominal tenderness in the epigastric area. There is no right CVA tenderness or left CVA tenderness. Genitourinary: Comments: deferred Musculoskeletal: General: No deformity. Normal range of motion. Cervical back: Normal range of motion. Comments: Atraumatic, moves all extremities spontaneously Skin: General: Skin is warm and dry. Capillary Refill: Capillary refill takes less than 2 seconds. Neurological: Mental Status: She is alert and oriented to person, place, and time. Mental status is at baseline. Comments: Awake Psychiatric: Mood and Affect: Affect is not tearful. Behavior: Behavior normal. Behavior is cooperative. Comments: Tearful at times, expresses frustration at illness and current home situation. Denies SI No data recorded ED Course & MDM 10/18/2023, 8:58 AM Scribe Attestation: This note was dictated to me, Sonal Telles, acting as a scribe for Agnes Phillip MD. Attending Attestation: This documentation was recorded by Sonal Telles acting as a scribe in my presence at the time of the encounter and accurately reflects the service I personally performed and thedecisions made by me. Assessment: Lila Mcnally is a 37 y.o. female with a history of anxiety, depression, fibromyalgia, GERD, HTN, and chronic pancreatitis who presents to the ED with abdominal pain. Pt c/o diarrhea, hot flashes,nausea, and epigastric pain radiating into left back for the past week. Also c/o 3x vomiting in past 24 hours and says symptoms are c/w prior episodes of pancreatitis. On exam, she has ttp diffusely about the abdomen but particularly epigastrium. No peritonitis. Appears well hydrated. I reviewed prior records which show multiple ER visits for similar symptoms r/t recurrent abd pain and intermittent pancreatitis. Review of [facility] shows frequent prescriptions for opioids from the ERwhich may be exacerbating her abd pain or at least prolonging proper management of her pain. She had been established with pain management but progress halted d/t and subsequent SAB. I haveencouraged her to reach back out to pain clinic as pump would probably be beneficial to her. She shouldn't need a new referral but can seek via PCP if required. Workup today with labs interpreted by me shows no concerning findings and no s/s acute pancreatitis. Have given 1.5L IVF, zofran, morphine 4mg IV, promethazine 12.5mg po, and oxycodone 5mg tab. She is currently tolerating po. No indication for imaging at this time. I talked with her at length about her recurrent symptoms and current social/psychological stressors. Likely some psychosomatic component to her pain and strongly recommended therapy to deal with bothchronic pain and stressors that are making it worse. I think dc with narcotics would be a disservice to her and have discussed this decision with her. Recommended clear liquid diet in event there is some pancreatic inflammation brewing. Pt comfortable with plan and dc home. Additional MDM: It should be noted that her chronic conditions includes anxiety, depression, fibromyalgia, GERD, HTN, and chronic pancreatitis, which currently is not at goal therapy. This complicates her clinical picture because it Comorbidities: may be exacerbating symptoms, increases the amount and complexity of data to be reviewed, complicates the clinical workup, and increases the risk for morbidity Differential Diagnosis: acute/chronic pancreatitis, electrolyte abnormalities, JYOTSNA, ARF, dehydration, gastritis, psychosomatic pain, gastroparesis In order to fully explore the differential diagnosis the following treatments and tests were ordered: ED Course as of 10/25/23 1306 Sun Oct 18, 2023 1041 Lipase wnl [KW] 1041 Magnesium wnl [KW] 1041 Lactic acid, venous wnl [KW] 1041 CBC w/diff(!) wnl [KW] 1041 hCG qualitative negative [KW] 1041 CMP(!) wnl [KW] 1149 I had a long talk with the patient. She is having marital issues and I think some depression r/t recent miscarriage. Have recommended outpatient counseling. She is not having SI and is not holdable today. This is all likely contributing to her difficulty managing pain and likely a somatic component of her symptoms. [KW] ED Course User Index [KW] Agnes Cooley MD Clinical Impressions as of 10/25/23 1306 Abdominal pain, epigastric Nausea and vomiting, unspecified vomiting type Social Determinates of Health Risks (including Economic Stability, Education and level of understanding, Healthcare access and quality and concerning social factors): Inability to see a healthcare specialist in timely manner., Social factors impacting patient's psychosocial well-being, and Poor social support Last PDMP Review: Agnes Cooley MD on 10/18/2023 8:36 AM Ultimately, this patient was Was discharged Home (Discharge) The primary encounter diagnosis was Abdominal pain, epigastric. A diagnosis of Nausea and vomiting, unspecified vomiting type was also pertinent to this visit. . Patient was counseled on the diagnoses. Discharge medications if any are listed below. Listed medications are thought be either curative for listed diagnoses or will help control ongoing symptoms. Patient is requested to follow up with Patient's Primary Care Provider and pain management in order to obtain routine follow-up,specialty care, and psychiatric/therapy care . Instructions on follow up as well as precautions to return to the ER provided verbally by the EM provider, as well as written in patients discharge education packet. Specific instructions provided are as follows: Discharge Instructions Blood work looks good today. Take promethazine and zofran as needed at home for nausea/vomiting. Clear liquid diet for today and tomorrow--this should help with any abdominal discomfort or if there is an early pancreatitis brewing. Contact [facility] to help set up outpatient mental health care. You may have some depression and also the stress of current issues will make abdominal pain worse. Therapy can help allof these things. Return if worse. Disposition Discharge AVS (Printed 10/18/2023) Follow-Ups: Follow up with [facility] ED Prescriptions None - Agnes Cooley MD 10/25/23 1317 * ED Triage Notes - Andrew Gonzalez, RN - 10/18/2023 8:14 AM EDT Pt with c/o ongoing abd pain with n/v/d. documented in this encounter Plan of Treatment Not on file documented as of this encounter Procedures Procedure Name Priority Date/Time Associated Diagnosis Comments LACTATE, VENOUS STAT 10/18/2023 9:31 AM EDT CBC WITH AUTO DIFFERENTIAL STAT 10/18/2023 9:31 AM EDT TEST QUALITATIVE PLASMA STAT 10/18/2023 9:31 AM EDT MAGNESIUM, PLASMA STAT 10/18/2023 9:3 1 AM EDT LIPASE, PLASMA STAT 10/18/2023 9:31 AM EDT COMPREHENSIVE METABOLIC PANEL, PLASMA STAT 10/18/2023 9:31 AM EDT documented in this encounter Results * hCG qualitative (10/18/2023 9:31 AM EDT) Test Negative Negative 10/18/2023 9:56 AM EDT [facility] Blood Venous blood specimen / Unknown Venipuncture / Unknown 10/18/2023 9:31 AM EDT 10/18/2023 9:35 AM EDT Narrative [facility] - 10/18/2023 9:56 AM EDT Reference Range: Males and non- females: Negative. us Agnes Cooley MD LAB BLOOD ORDERABLES Final R esult Performing Organization Address [facility] de Phone Number [facility] [address] [place] [address] * Lactic acid, venous (10/18/2023 9:31 AM EDT) Lactate, Venous, Whole Blood 1.0 0.5 - 2.2 mmol/L LAB HEMATOLOGY METHOD 10/18/2023 9:36 AM EDT [facility] Blood Venous blood specimen / Unknown Venipuncture / Unknown 10/18/2023 9:31 AM EDT 10/18/2023 9:35 AM EDT us Agnes Cooley MD LAB BLOOD ORDERABLES [facility] Performing Organization Address [facility] de Phone Number [facility] [address] [place] [address] * Lipase (10/18/2023 9:31 AM EDT) Lipase, Plasma 24 19 - 63 U/L 10/18/2023 9:56 AM EDT [facility] Blood Venous blood specimen / Unknown Venipuncture / Unknown 10/18/2023 9:31 AM EDT 10/18/2023 9:35 AM EDT us Agnes Cooley MD LAB BLOOD ORDERABLES Final R esult Performing Organization Address [facility] de Phone Number [facility] [address] [place] [address] * Magnesium (10/18/2023 9:31 AM EDT) Magnesium, Plasma 2.1 1.9 - 2.4 mg/dL 10/18/2023 9:56 AM EDT [facility] Blood Venous blood specimen / Unknown Venipuncture / Unknown 10/18/2023 9:31 AM EDT 10/18/2023 9:35 AM EDT us Agnes Cooley MD LAB BLOOD ORDERABLES Final R esult [facility] [address] [place] [address] * (ABNORMAL) CMP (10/18/2023 9:31 AM EDT) Glucose, Plasma 89 74 - 99 mg/dL 10/18/2023 9:56 AM EDT [facility] BUN, Plasma 10 7 - 21 mg/dL 10/18/2023 9:56 AM EDT [facility] Creatinine, Plasma 0.48(L) 0.60 - 1.10 mg/dL 10/18/2023 9:56 AM EDT [facility] BUN/Creatinine Ratio 21 10/18/2023 9:56 AM EDT [facility] Sodium, Plasma 136 136 - 145 mmol/L 10/18/2023 9:56 AM EDT [facility] Potassium, Plasma 3.7 3.7 - 4.8 mmol/L 10/18/2023 9:56 AM EDT [facility] Chloride, Plasma 103 97 - 107 mmol/L 10/18/2023 9:56 AM EDT [facility] CO2, Plasma 21(L) 22 - 29 mmol/L 10/18/2023 9:56 AM EDT [facility] Anion Gap 12 6 - 16 mmol/L 10/18/2023 9:56 AM EDT [facility] Total Calcium, Plasma 8.7(L) 8.9 - 10.2 mg/dL 10/18/2023 9:56 AM EDT [facility] Total Protein 7.0 6.3 - 7.9 g/dL 10/18/2023 9:56 AM EDT [facility] Albumin, Plasma 4.1 3.5 - 5.2 g/dL 10/18/2023 9:56 AM EDT [facility] AST, Plasma 15 10 - 35 U/L 10/18/2023 9:56 AM EDT [facility] ALT, Plasma 15 10 - 35 U/L 10/18/2023 9:56 AM EDT [facility] Alkaline Phosphatase, Plasma 101 35 - 104 U/L 10/18/2023 9:56 AM EDT [facility] Total Bilirubin, Plasma 0.5 0.2 - 1.1 mg/dL 10/18/2023 9:56 AM EDT [facility] eGFRcr 126.1 mL/min/1.7 3m*2 10/18/2023 9:56 AM EDT [facility] Comment:Reported eGFRcr in m L/min/1.73m2 is based the CKD-EPI 2020 equation that does not use a race coefficient. Blood Venous blood specimen / Unknown Venipuncture / Unknown 10/18/2023 9:31 AM EDT 10/18/2023 9:35 AM EDT us Agnes Cooley MD LAB BLOOD ORDERABLES Final R esult [facility] [address] [place] [address] * (ABNORMAL) CBC w/diff (10/18/2023 9:31 AM EDT) WBC Count 7.79 3.70 - 10.30 10*3/uL LAB HEMATOLOGY METHOD 10/18/2023 9:37 AM EDT [facility] RBC Count 4.55 3.90 - 5.20 10*6/uL LAB HEMATOLOGY METHOD 10/18/2023 9:37 AM EDT [facility] HGB 11.3 11.2 - 15.7 g/dL LAB HEMATOLOGY METHOD 10/18/2023 9:37 AM EDT [facility] HCT 35.8 34.0 - 45.0 % LAB HEMATOLOGY METHOD 10/18/2023 9:37 AM EDT [facility] Platelet Count 212 155 - 369 10*3/uL LAB HEMATOLOGY METHOD 10/18/2023 9:37 AM EDT [facility] MCV 79 79 - 98 fL LAB HEMATOLOGY METHOD 10/18/2023 9:37 AM EDT [facility] MCH 24.8(L) 26.0 - 32.0 pg LAB HEMATOLOGY METHOD 10/18/2023 9:37 AM EDT [facility] MCHC 31.6 30.7 - 35.5 g/dL LAB HEMATOLOGY METHOD 10/18/2023 9:37 AM EDT [facility] RDW 16.9(H) 11.5 - 14.5 % LAB HEMATOLOGY METHOD 10/18/2023 9:37 AM EDT [facility] MPV 9.4 8.8 - 12.5 fL LAB HEMATOLOGY METHOD 10/18/2023 9:37 AM EDT [facility] nRBC 0.0 <=0.0 per 100 WBCs LAB HEMATOLOGY METHOD 10/18/2023 9:37 AM EDT [facility] Differential Type Automated LAB HEMATOLOGY METHOD 10/18/2023 9:37 AM EDT [facility] Neutrophils % 62.0 % LAB HEMATOLOGY METHOD 10/18/2023 9:37 AM EDT [facility] Lymphocytes % 29.0 % LAB HEMATOLOGY METHOD 10/18/2023 9:37 AM EDT [facility] Monocytes % 6.0 % LAB HEMATOLOGY METHOD 10/18/2023 9:37 AM EDT [facility] Eosinophils % 1.0 % LAB HEMATOLOGY METHOD 10/18/2023 9:37 AM EDT [facility] Basophils % 1.0 % LAB HEMATOLOGY METHOD 10/18/2023 9:37 AM EDT [facility] Immature Granulocytes % 1.0 % LAB HEMATOLOGY METHOD 10/18/2023 9:37 AM EDT [facility] Neutrophils Absolute 4.92 1.60 - 6.10 10*3/uL LAB HEMATOLOGY METHOD 10/18/2023 9:37 AM EDT [facility] Lymphocytes Absolute 2.24 1.20 - 3.90 10*3/uL LAB HEMATOLOGY METHOD 10/18/2023 9:37 AM EDT [facility] Monocytes Absolute 0.45 0.30 - 0.90 10*3/uL LAB HEMATOLOGY METHOD 10/18/2023 9:37 AM EDT [facility] Eosinophils Absolute 0.07 0.00 - 0.50 10*3/uL LAB HEMATOLOGY METHOD 10/18/2023 9:37 AM EDT [facility] Basophils Absolute 0.05 0.00 - 0.10 10*3/uL LAB HEMATOLOGY METHOD 10/18/2023 9:37 AM EDT [facility] Immature Granulocytes Absolute 0.06 0.00 - 0.06 10*3/uL LAB HEMATOLOGY METHOD 10/18/2023 9:37 AM EDT [facility] Blood Venous blood specimen / Unknown Venipuncture / Unknown 10/18/2023 9:31 AM EDT 10/18/2023 9:35 AM EDT [facility] - 10/18/2023 9:37 AM EDT Therapeutic decision making should be based on absolute values, rather than percentages. us Agnes Cooley MD LAB BLOOD ORDERABLES Final R esult [facility] [address] [place] [address] documented in this encounter Visit Diagnoses Diagnosis Abdominal pain, epigastric- Primary Nausea and vomiting, unspecified vomiting type documented in this encounter Administered Medications Inactive Administered Medications - up to 3 most recent administrations Medication Order MAR Action Action Date Dose Rate Site morphine PF 4 mg 4 mg, Intravenous, Once, 1 dose, On 10/18/23 at 0850, STAT Given 10/18/2023 9:20 AM EDT 4 mg ondansetron (Zofran) injection 4 mg 4 mg, Intravenous, Once, 1 dose, On 10/18/23 at 0850, STAT Given 10/18/2023 9:20 AM EDT 4 mg oxyCODONE (Roxicodone) immediate release tablet 5 mg 5 mg, Oral, Once, 1 dose, On 10/18/23 at 1150, STAT Given 10/18/2023 11:59 AM EDT 5 mg promethazine (Phenergan) tablet 12.5 mg 12.5 mg, Oral, Once, 1 dose, On 10/18/23 at 1150, STAT Given 10/18/2023 11:59 AM EDT 12.5 mg sodium chloride 0.9 % bolus 1,000 mL 1,000 mL, Intravenous, Once, 1 dose, On 10/18/23 at 0850, Administer over 15 Minutes, Routine New Bag 10/18/2023 9:19 AM EDT 1,000 mL 4000 m L/hr sodium chloride 0.9 % bolus 1,000 mL 1,000 mL, Intravenous, Once, 1 dose, On 10/18/23 at 1150, Administer over 15 Minutes, Routine New Bag 10/18/2023 11:59 AM EDT 1,000 mL 4000 mL/hr documented in this encounter Active and Recently Administered Medications Times are shown in EDT. Scheduled Medication Order 10/16/2023 10/17/2023 10/18/2023 morphine PF 4 mg (COMPLETED) 4 mg, Intravenous, Once, 1 dose, On 10/18/23 at 0850, STAT 0920 (Given - Provid er: Alexandria Hernandez RN) ondansetron (Zofran) injection 4 mg (COMPLETED) 4 mg, Intravenous, Once, 1 dose, On 10/18/23 at 0850, STAT 0920 (Given - Provid er: Alexandria Hernandez RN) oxyCODONE (Roxicodone) immediate release tablet 5 mg (COMPLETED) 5 mg, Oral, Once, 1 dose, On 10/18/23 at 1150, STAT 1159 (Given - Provid er: Alexandria Hernandez RN) promethazine (Phenergan) tablet 12.5 mg (COMPLETED) 12.5 mg, Oral, Once, 1 dose, On 10/18/23 at 1150, STAT 1159 (Given - Provid er: Alexandria Hernandez RN) sodium chloride 0.9 % bolus 1,000 mL (COMPLETED) 1,000 mL, Intravenous, Once, 1 dose, On 10/18/23 at 0850, Administer over 15 Minutes, Routine 0919 (New Bag - Prov ider: Alexandria Hernandez RN)1151 (Stopped - Provider: Alexandria Hernandez RN) sodium chloride 0.9 % bolus 1,000 mL (COMPLETED) 1,000 mL, Intravenous, Once, 1 dose, On 10/18/23 at 1150, Administer over 15 Minutes, Routine 1159 (New Bag - Prov ider: Alexandria Hernandez RN)1312 (Stopped - Provider: Alexandria Hernandez RN) documented in this encounter Additional Health Concerns Assessment Noted Time A fall risk assessment has been complete d for the patient 11/21/2020 2:30 PM EDT A Body Mass Index follow-up plan has been documented for the patient 04/14/2023 2:24 PM EST documented as of this encounter Care Teams Predictive Maintenance Technician Relationship Specialty Start Date End Date Citlali [place] [address] PCP - General Family Medicine 03/26/23 10/19/23 documented as of this encounter
--- OUTSIDE RECORDS SUMMARY | 2024-02-03 15:10 | XMS_ITS | Encounter Summary ---
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 Name Role Phone Citlali Marquez APRN Primary Care Provider [phone] Reason for Referral * Consultation (Routine) - Authorized Specialty Diagnoses / Procedures Referred By Susy burks Referred To Contact Pain Medicine Diagnoses Abdominal pain, epigastric Luis Velasco PA [address] [place] [address] Phone: tel: fax: [facility] Interventional Pain Medicine [address] [place] [address] Phone: tel: fax: Referral ID Status Reason Start Date Expiration Date Visits Requested Visits Authorized [id number] Authorized Specialty Services Required 10/19/2023 04/19/2025 1 1 Reason for Visit * Reason Comments Abdominal Pain Encounter Details Date Type Department Care Team (Late Contact Info) Description 10/19/2023 11:05 AM EDT - 10/19/2023 5:14 PM EDT Emergency [facility] S Emergency Department [address] [place] [address] Abdominal pain, epigastric (Primary Dx); [...] slept in a half-way (including now)? 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-LCSW) to steady your nerves or to get rid of a hangover? 0 04/11/2023 CAGE Questionnaire Score 0 024 Utilities Answer Date Recorded In the past 12 months has Hang[employer], gas, oil, or water [email or web address] threatened to shut off services in your [...] Sign Reading Time Taken Comments Blood Pressure 131/82 10/19/2023 5:12 PM EDT Pulse 89 10/19/2023 5:12 PM EDT Temperature 36.6 ??C (97.8 ??F) 10/19/2023 5:12 PM ED T Respiratory Rate 16 10/19/2023 5:12 PM EDT Oxygen Saturation 100% 10/19/2023 5:12 PM EDT Inhaled Oxygen Concentration - - Weight 96.5 kg (212 lb 11.9 oz) 024 11:32 AM EDT Height - - Body Mass [...] this encounter Discharge Instructions * Discharge Instructions* Luis Velasco PA - 10/19/2023 4:38 PM EDT Please take Zofran and Phenergan for nausea at home. Take Tylenol and ibuprofen as needed for pain relief at home. Please follow-up with interventional pain as well as your primary care doctor for re-evaluation. Please use resources provided to you regarding care after a miscarriage and for therapyoptions. Return to the emergency department if you have worsening pain, bloody vomiting, fevers. documented in this encounter Medications at Time [...] needed (pain). 4 tablet 10/13/2023 4 pancrelipase, Rjw-Cfeu-Vpav, (Creon) [id number] units capsule Take 1 capsule by mouth [...] as of this encounter Miscellaneous Notes * Luis Biggs PA - 10/19/2023 1:52 PM EDT Images from the original note were not included. 1609 Loss Support Opportunities [facility] by [facility] Navigators Provides support groups and short-term individual counseling. Services often provided at no cost. Call [phone]. Adjustment Center: Dr. Marcial Mccallum Provides support for patients coping with miscarriages or loss. For appointments, call [phone]. For more information, visit www.postpartumadjustmentcenter.com Memorial Service provided by [facility] Held each spring to honor those lost in the previous year. Contact Pediatric Palliative Care Team at [phone] for more information. Walk to Remember provided by [facility] Event held each year the first Thursday in November. Located at the [facility] in [place], [place]. All families having experienced a loss are invited to attend. Contact Pediatric Palliative Care Team at [phone] or email [email or web address] for details. [facility] Bereavement Parent Support Group meets from 7?8:30 p.m. the first Thursday of each month. & Parenting After Loss Support Group meets from 7?8:30 p.m. the first Thursday of each month. Contact Jennifer Loving at [email or web address] or [phone] caroline. Online Support National [facility] and Loss Support Serves those who have experienced the of a baby due to loss, stillbirth, or infant loss. Information also available in Italian. Visit www.Whyteboard.org. [employer] [facility] provides CARE (Counseling, Advocacy, Research, and Education) for families grieving child loss. Visit www.[employer].undation.org. After Loss Support for those expecting again after a previous loss. Visit https://www.pregnancyafterlosssupport.com Return to Zero: H.O.P.E. A community of bereaved families and their providers who are transforming the culture of and infant loss through awareness, education, and support. Visit https://MyKontiki ([employer]e.org. [employer] non-profit organization providing education, support, and research to improve outcomes for mothers and babies. https://www.marchofdimes.org/complications/miscarriage.aspx Compassionate Friends Self-help organization offering support to bereaved families with chapters in all 50 states. https://www.compassionatefriends.org/fbbsasljvx-ywnhoxygxqb-frhksn-/ [facility] Life [facility] in [place] founded by Dr. Vivek Bañuelos. Offers many types of online support and reading suggestions for those experiencing loss. Visit https://www.Solar Notion.[employer]prius//vbaqjld-tvlrzw-scol-miscarriage/ * Val ColemanPRIYA - Luis Velasco PA - 10/19/2023 1:51 PM EDT Images from the original note were not included. 1609 Loss Support Opportunities [facility] provided by [facility] Nav[facility]ators Provides support groups and short-term individual counseling. Services often provided at no cost. Call [phone]. Adjustment Center: Dr. Marcial Mccallum Provides support for patients coping with miscarriages or loss. For appointments, call [phone]. For more information, visit www.postpartumadjustmentcenter.com Memorial Service provided by [facility] Held each spring to honor those lost in the previous year. Contact Pediatric Palliative Care Team at [phone] for more information. Walk to Remember provided by [facility] Event held each year the first Thursday in November. Located at the [facility] [employer] in [place], [place]. All families having experienced a loss are invited to attend. Contact Pediatric Palliative Care Team at [phone] or email [email or web address] for details. [facility] Bereavement Parent Support Group meets from 7?8:30 p.m. the first Thursday of each month. & Parenting After Loss Support Group meets from 7?8:30 p.m. the first Thursday of each month. Contact Jennifer Loving at [email or web address] or [phone] caroline. Online Support National [facility] and Loss Support Serves those who have experienced the of a baby due to loss, stillbirth, or infant loss. Information also available in Italian. Visit www.Whyteboard.org. [facility] provides CARE (Counseling, Advocacy, Research, and Education) for families grieving child loss. Visit www.BiddingForGoodfoundation.org. After Loss Support for those expecting again after a previous loss. Visit https://www.pregnancyafterlosssupport.com Return to Zero: H.O.P.E. A community of bereaved families and their providers who are transforming the culture of and infant loss through awareness, education, and support. Visit https://rtzhope.org. [employer] non-profit organization providing education, support, and research to improve outcomes for mothers and babies. https://www.marchofdimes.org/complications/miscarriage.aspx [employer] Self-help organization offering support to bereaved families with chapters in all 50 states. https://www.compassionatefriends.org/ydbhafllgd-rjizuwybppw-cjwnfx-/ [facility] for [facility] and Life [facility] in [place] founded by Dr. Vivek Bañuelos. Offers many types of online support and reading suggestions for those experiencing loss. Visit https://www.Solar Notion.Aprius//ouqmpuc-madgtd-yogp-miscarriage/ * ED Provider Notes - Luis Velasco PA - 10/19/2023 9:58 AM EDT Images from the original note were not included. - HPI Chief Complaint Patient presents with Abdominal Pain Lila Mcnally is a 37-year-old female well known to this ER with PMH pancreatitis, fibromyalgia,obesity, anxiety, depression, GERD, HTN who presents to the emergency department for evaluation of abdominal pain. Patient states she believes she is having an acute pancreatitis flare. Patient notesthat she has had ongoing pain for the last 2 weeks and has been taking medications at home. She states she was seen in the emergency department yesterday where she was given oxycodone and Phenergan with some improvement of her symptoms and was offered admission for dehydration but opted for home management. 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 Patient states she continued to have abdominal pain consistent with her pancreatitis and returned due to the abdominal pain. Patient also notes that she took the Phenergan as prescribedthis morning and was able to take her morning medications however it has not been able to tolerate oral intake. Patient denies any fevers, chills, hematochezia, diarrhea, vaginal bleeding, ,dysuria, hematuria. Patient History Past Medical History: Diagnosis Date Anxiety Arthritis Depression Fibromyalgia Gastric erosions 04/19/2021 GERD (gastroesophageal reflux disease) Hypertension Intentional overdose ([facility]) 12/20/2021 Nicotine dependence Obesity Pancreatitis Past [...] attacks too. Physical Exam ED Triage Vitals [10/19/23 1011] Temp Heart Rate Resp BP 36.6 ??C (97.8 ??F) 108 16 (!) 141/89 SpO2 Temp Source Heart Rate Source Patient Position 100 % Oral -- -- BP Location FiO2 (%) -- -- Physical Exam Vitals and nursing note reviewed. Constitutional: Appearance: Normal appearance. HENT: Head: Normocephalic and atraumatic. Cardiovascular: Rate and Rhythm: Normal rate and regular rhythm. Pulmonary: Effort: Pulmonary effort is normal. Breath sounds: Normal breath sounds. Abdominal: General: There is no distension. Palpations: Abdomen is soft. Comments: Patient endorses pain on palpation of the LUQ however on palpation while discussing her symptoms patient is non-tender Skin: General: Skin is warm and dry. Neurological: Mental Status: She is alert and oriented to person, place, and time. Psychiatric: Mood and Affect: Mood normal. Behavior: Behavior normal. Jo Coma Scale Score: 15 ED Course & MDM - Assessment: 37 y.o. female presents to ED with complaint of abdominal pain. It should be noted that her chronicconditions includes chronic pancreatitis, fibromyalgia, anxiety, hypertension, which currently is not at goal therapy. This complicates her clinical picture because it Comorbidities: may be exacerbating symptoms and increases the risk for morbidity Differential Diagnosis: Pancreatitis, gastroenteritis, electrolyte abnormality, , cystitis Per chart review, patient has been seen in the emergency department for similar presentation 4 times the last 2 weeks. Patient has also received prescriptions on 4 separate occasions for narcotic pain medication in the last 2 weeks. Given patient history of opioid abuse there was concern for further prescription narcotic medication. Patient was also seen at an outside emergency department 2 months ago for methamphetamine use. I believe the patient would benefit from nonnarcotic pain medication along with pain management referral. In order to fully explore the differential diagnosis the following treatments and tests were ordered: ED Medication Administration from 10/19/2023 0958 to 10/19/2023 1810 Date/Time Order Dose Route Action 10/19/2023 1221 EDT lactated Ringer's infusion 1,000 mL 1,000 mL Intravenous New Bag 10/19/2023 1232 EDT ketorolac (Toradol) injection 15 mg 15 mg Intravenous Given 10/19/2023 1233 EDT ondansetron (Zofran) injection 4 mg 4 mg Intravenous Given 10/19/2023 1419 EDT oxyCODONE (Roxicodone) immediate release tablet 5 mg 5 mg Oral Given 10/19/2023 1420 EDT promethazine (Phenergan) tablet 25 mg 25 mg Oral Given 10/19/2023 1424 EDT lactated Ringer's infusion 1,000 mL 0 mL Intravenous Stopped 10/19/2023 1531 EDT morphine PF 4 mg 4 mg Intravenous Given 10/19/2023 1531 EDT ondansetron (Zofran) injection 4 mg 4 mg Intravenous Given All Other Orders Ordered Status Ordering Provider 10/19/23 1529 Once Canceled BRIANAishwaryaLUIS E 10/19/23 1231 Magnesium STAT Final result LUIS VELASCO E 10/19/23 1228 STAT Canceled LUIS VELASCO E 10/19/23 1155 STAT Canceled LUIS VELASCO E 10/19/23 1153 CBC w/diff STAT Final result LUIS VELASCO E 10/19/23 1153 CMP STAT Final result LUIS VELASCO E 10/19/23 1153 Lipase STAT Final result LUIS VELASCO E 10/19/23 1153 Lactic acid, venous STAT Final result LUIS VELASCO E 10/19/23 1153 hCG qualitative STAT Final result LUIS VELASCO E 10/19/23 1153 Urinalysis with reflex microscopic AND reflex culture (IF UTI SUSPECTED) STAT Preliminary result LUIS VELASCO 10/19/23 1153 Urinalysis with reflex microscopic (Culture NOT Included) PROCEDURE ONCE Final result LUIS VELASCO 10/19/23 1153 Urine Gunter Panel PROCEDURE ONCE Preliminary result LUIS VELASCO 10/19/23 1639 Ambulatory referral to Pain Medicine Ordered LUIS VELASCO ED Course as of 10/19/23 1810 ThuOct 19, 2023 1210 Urinalysis with reflex microscopic AND reflex culture (IF UTI SUSPECTED)(!) No leukocytes or nitrites [MA] 1237 Lactate: 1.2 [MA] 1252 CBC w/diff(!) Anemia consistent with patient baseline, no leukocytosis [MA] 1259 Lipase(!): 18 [MA] 1259 Magnesium: 2.2 [MA] 1259 Test: Negative [MA] 1259 CMP(!) Creatinine 0.54 otherwise within normal limits [MA] 1355 On re-evaluation of the patient, patient is tearful stating the pain is not any better. Patient requesting narcotic pain medication, specifically also asking for phenergan. Advised patient we donot have phenergan IV as it is on low supply and reserved for pediatric cancer patients. Offered patient oral phenergan and further pain control. Advised patient on negative lab results. [MA] 1407 Urinalysis with reflex microscopic AND reflex culture (IF UTI SUSPECTED)(!) negative [MA] 1437 I was called to the room by the patient. Patient states she feels like her pain is being neglected. I apologized to the patient and advised patient that we do have pain medication and more nausea medicine ordered for her. Patient was able to tolerate these PO medications with no vomiting or difficulty. I had extensive discussion with the patient regarding controlling her pain with non-narcotic options given her history of opioid abuse disorder. Patient was offered ketamine, tylenol, or droperidol and refused all of the above. Patient states she understands the hesitation of a opioid prescription however endorses that opioids are the only thing that helps her pain. Patient was previously scheduled with the pain medicine clinic for a pain pump however has not followed up since. Patientwas offered referral to pain management to discuss the pain pump again. Patient will be re-evaluated as she has just now received the oxycodone and Phenergan. [MA] 1528 On re-evaluation of the patient she continued to endorse severe pain despite the medications given. Patient was given pain medication and Zofran at this time. Given patient's severe pain despitethe medications had a risks versus benefits discussion with the patient regarding receiving a CT scan for further evaluation. Patient verbalized wanting to proceed with a CT scan. [MA] 1616 Multiple attempts to get another IV attempted. USGIV attempted. Patient states I do not thinka CT scan will make a difference, if I am in pain then I'm in pain and should stay overnight. [MA] 1633 Nurse at bedside for attempt of USGIV, patient refuses CT scan stating I just want to leave. Dr. Donis at bedside to discuss options with patient. [MA] ED Course User Index [MA] Luis Velasco PA Clinical Impressions as of 10/19/23 1810 Abdominal pain, epigastric Nausea and vomiting, unspecified vomiting type After extensive discussion by both myself and the attending physician, patient ultimately opted to be discharged from the Emergency Department. Referral to pain management was sent and patient was also given information regarding resources available for women after loss. Patient was agreeable to care plan and stable prior to discharge. Ultimately, this patient was Was discharged Home [...] and pain management in order to obtain specialty care. Instructions on follow up as well as precautions to return to the ER provided verbally by the EM provider, as well as written in patients discharge education packet. Specific instructions provided are as follows: Discharge Instructions Please take Zofran and Phenergan for nausea at home. Take Tylenol and ibuprofen as needed for pain relief at home. Please follow-up with interventional pain as well as your primary care doctor for re-evaluation. Please use resources provided to you regarding care after a miscarriage and for therapyoptions. Return to the emergency department if you have worsening pain, bloody vomiting, fevers. Disposition Discharge AVS (Printed 10/19/2023) Follow-Ups Follow up with Citlali Marquez APRN (Family Medicine) Follow up with Acute Pain Management (Pain Medicine) Discharge Orders Ambulatory referral to Pain Medicine Authorized ED Prescriptions None Discharge Instructions Please take Zofran and Phenergan for nausea at home. Take Tylenol and ibuprofen as needed for pain relief at home. Please follow-up with interventional pain as well as your primary care doctor for re-evaluation. Please use resources provided to you regarding care after a miscarriage and for therapyoptions. Return to the emergency department if you have worsening pain, bloody vomiting, fevers. Disposition Discharge AVS (Printed 10/19/2023) Follow-Ups Follow up with Citlali Marquez APRN (Family Medicine) Follow up with Acute Pain Management (Pain Medicine) Discharge Orders Ambulatory referral to Pain Medicine Authorized - Luis Velasco PA 10/19/23 1810 Cosigned by Carter Donis MD at 10/19/2023 10:56 PM EDT Associated attestation - Carter Donis MD - 10/19/2023 10:56 PM EDT I attest to being involved in more than half the total time in patient care. * ED Triage Notes - Andrew Gonzalez RN - 10/19/2023 9:58 AM EDT Pt returns for abd pain, n/v/d, was here yesterday and consulting service wanted to admit her but she wanted to talk to her pcp first. documented in this encounter Plan of Treatment Scheduled Referrals Name Type Priority Associated Diagnoses Order Schedule Ambulatory referral to Pain Medicine Outpatient Referral Routine Abdominal pain, epigastric Expected: 10/19/2023 (Approximate), Expires: 04/20/2025 documented as of this encounter Procedures Procedure Name Priority Date/Time Associated Diagnosis Comments LACTATE, VENOUS STAT 10/19/2023 12:20 PM EDT CBC WITH AUTO DIFFERENTIAL STAT 10/19/2023 12:20 PM EDT TEST QUALITATIVE PLASMA STAT 10/19/2023 12:20 PM EDT MAGNESIUM, PLASMA STAT Add-on 10/19/2023 12: 20 PM EDT LIPASE, PLASMA STAT 10/19/2023 12:20 PM EDT COMPREHENSIVE METABOLIC PANEL, PLASMA STAT 10/19/2023 12:20 PM EDT URINALYSIS WITH REFLEX MICROSCOPIC STAT 10/19/2023 12:01 PM EDT URINE GUNTER PANEL STAT 10/19/2023 12:0 1 PM EDT URINALYSIS WITH REFLEX MICROSCOPIC STAT 10/19/2023 12:01 PM EDT documented in this encounter Results * Magnesium (10/19/2023 12:20 PM EDT) Pathologist [facility] Magnesium, Plasma 2.2 1.9 - 2.4 mg/dL 10/19/2023 12:57 PM EDT [facility] Blood Venous blood specimen / Unknown Venipuncture / Unknown 10/19/2023 12:20 PM EDT 10/19/2023 12:29 PM EDT us Luis NAJERA LAB BLOOD ORDERABLES Final Res ult [facility] [address] [place] [address] * hCG qualitative (10/19/2023 12:20 PM EDT) Pathologist [facility] Test Negative Negative 10/19/2023 12:57 PM EDT HEALTHCARE LAB Blood Venous blood specimen / Unknown Venipuncture / Unknown 10/19/2023 12:20 PM EDT 10/19/2023 12:29 PM EDT Narrative HEALTHCARE LAB - 10/19/2023 12:57 PM EDT Reference Range: Males and non- females: Negative. us Luis NAJERA LAB BLOOD ORDERABLES Final Res ult Performing Organization Address City/[facility] Co de Phone Number [facility] [address] [place] [address] * Lactic acid, venous (10/19/2023 12:20 PM EDT) Pathologist [facility] Lactate, Venous, Whole Blood 1.2 0.5 - 2.2 mmol/L LAB HEMATOLOGY METHOD 10/19/2023 12:37 PM EDT [facility] Blood Venous blood specimen / Unknown Venipuncture / Unknown 10/19/2023 12:20 PM EDT 10/19/2023 12:29 PM EDT Luis NAJERA LAB BLOOD ORDERABLES Final Res ult Performing Organization Address [facility] Co de Phone Number [facility] [address] [place] [address] * (ABNORMAL) Lipase (10/19/2023 12:20 PM EDT) Pathologist [facility] Lipase, Plasma 18(L) 19 - 63 U/L 10/19/2023 12:57 PM EDT [facility] Blood Venous blood specimen / Unknown Venipuncture / Unknown 10/19/2023 12:20 PM EDT 10/19/2023 12:29 PM EDT Luis NAJERA LAB BLOOD ORDERABLES Final Res ult Performing Organization Address City/[facility] Co de Phone Number [facility] [address] [place] [address] * (ABNORMAL) CMP (10/19/2023 12:20 PM EDT) Glucose, Plasma 75 74 - 99 mg/dL 10/19/2023 12:57 PM EDT [facility] BUN, Plasma 11 7 - 21 mg/dL 10/19/2023 12:57 PM EDT [facility] Creatinine, Plasma 0.54(L) 0.60 - 1.10 mg/dL 10/19/2023 12:57 PM EDT [facility] BUN/Creatinine Ratio 20 10/19/2023 12:57 PM EDT [facility] Sodium, Plasma 136 136 - 145 mmol/L 10/19/2023 12:57 PM EDT [facility] Potassium, Plasma 3.7 3.7 - 4.8 mmol/L 10/19/2023 12:57 PM EDT [facility] Chloride, Plasma 102 97 - 107 mmol/L 10/19/2023 12:57 PM EDT [facility] CO2, Plasma 22 22 - 29 mmol/L 10/19/2023 12:57 PM EDT [facility] Anion Gap 12 6 - 16 mmol/L 10/19/2023 12:57 PM EDT [facility] Total Calcium, Plasma 8.8(L) 8.9 - 10.2 mg/dL 10/19/2023 12:57 PM EDT [facility] Total Protein 6.9 6.3 - 7.9 g/dL 10/19/2023 12:57 PM EDT [facility] Albumin, Plasma 4.1 3.5 - 5.2 g/dL 10/19/2023 12:57 PM EDT [facility] AST, Plasma 16 10 - 35 U/L 10/19/2023 12:57 PM EDT [facility] ALT, Plasma 17 10 - 35 U/L 10/19/2023 12:57 PM EDT [facility] Alkaline Phosphatase, Plasma 100 35 - 104 U/L 10/19/2023 12:57 PM EDT [facility] Total Bilirubin, Plasma 0.5 0.2 - 1.1 mg/dL 10/19/2023 12:57 PM EDT [facility] eGFRcr 122.5 mL/min/1.7 3m*2 10/19/2023 12:57 PM EDT [facility] Comment:Reported eGFRcr in m L/min/1.73m2 is based the CKD-EPI 2020 equation that does not use a race coefficient. Blood Venous blood specimen / Unknown Venipuncture / Unknown 10/19/2023 12:20 PM EDT 10/19/2023 12:29 PM EDT Luis NAJERA LAB BLOOD ORDERABLES Final Res ult [facility] [address] [place] [address] * (ABNORMAL) CBC w/diff (10/19/2023 12:20 PM EDT) WBC Count 7.41 3.70 - 10.30 10*3/uL LAB HEMATOLOGY METHOD 10/19/2023 12:44 PM EDT [facility] RBC Count 4.24 3.90 - 5.20 10*6/uL LAB HEMATOLOGY METHOD 10/19/2023 12:44 PM EDT [facility] HGB 10.5(L) 11.2 - 15.7 g/dL LAB HEMATOLOGY METHOD 10/19/2023 12:44 PM EDT [facility] HCT 33.5(L) 34.0 - 45.0 % LAB HEMATOLOGY METHOD 10/19/2023 12:44 PM EDT [facility] Platelet Count 222 155 - 369 10*3/uL LAB HEMATOLOGY METHOD 10/19/2023 12:44 PM EDT [facility] MCV 79 79 - 98 fL LAB HEMATOLOGY METHOD 10/19/2023 12:44 PM EDT [facility] MCH 24.8(L) 26.0 - 32.0 pg LAB HEMATOLOGY METHOD 10/19/2023 12:44 PM EDT [facility] MCHC 31.3 30.7 - 35.5 g/dL LAB HEMATOLOGY METHOD 10/19/2023 12:44 PM EDT [facility] RDW 16.8(H) 11.5 - 14.5 % LAB HEMATOLOGY METHOD 10/19/2023 12:44 PM EDT [facility] MPV 9.6 8.8 - 12.5 fL LAB HEMATOLOGY METHOD 10/19/2023 12:44 PM EDT [facility] nRBC 0.0 <=0.0 per 100 WBCs LAB HEMATOLOGY METHOD 10/19/2023 12:44 PM EDT [facility] Differential Type Automated LAB HEMATOLOGY METHOD 10/19/2023 12:44 PM EDT [facility] Neutrophils % 62.0 % LAB HEMATOLOGY METHOD 10/19/2023 12:44 PM EDT [facility] Lymphocytes % 30.0 % LAB HEMATOLOGY METHOD 10/19/2023 12:44 PM EDT [facility] Monocytes % 5.0 % LAB HEMATOLOGY METHOD 10/19/2023 12:44 PM EDT [facility] Eosinophils % 2.0 % LAB HEMATOLOGY METHOD 10/19/2023 12:44 PM EDT [facility] Basophils % 1.0 % LAB HEMATOLOGY METHOD 10/19/2023 12:44 PM EDT [facility] Immature Granulocytes % 0.0 % LAB HEMATOLOGY METHOD 10/19/2023 12:44 PM EDT [facility] Neutrophils Absolute 4.64 1.60 - 6.10 10*3/uL LAB HEMATOLOGY METHOD 10/19/2023 12:44 PM EDT [facility] Lymphocytes Absolute 2.21 1.20 - 3.90 10*3/uL LAB HEMATOLOGY METHOD 10/19/2023 12:44 PM EDT [facility] Monocytes Absolute 0.35 0.30 - 0.90 10*3/uL LAB HEMATOLOGY METHOD 10/19/2023 12:44 PM EDT [facility] Eosinophils Absolute 0.13 0.00 - 0.50 10*3/uL LAB HEMATOLOGY METHOD 10/19/2023 12:44 PM EDT [facility] Basophils Absolute 0.05 0.00 - 0.10 10*3/uL LAB HEMATOLOGY METHOD 10/19/2023 12:44 PM EDT [facility] Immature Granulocytes Absolute 0.03 0.00 - 0.06 10*3/uL LAB HEMATOLOGY METHOD 10/19/2023 12:44 PM EDT [facility] Blood Venous blood specimen / Unknown Venipuncture / Unknown 10/19/2023 12:20 PM EDT 10/19/2023 12:29 PM EDT Narrative [facility] - 10/19/2023 12:44 PM EDT Therapeutic decision making should be based on absolute values, rather than percentages. us Luis NAJERA LAB BLOOD ORDERABLES Final Res ult [facility] [address] [place] [address] * Urine Gunter Panel (10/19/2023 12:01 PM EDT) Extra Reflex urine culture not indicated 10/19/2023 9:01 PM EDT [facility] Comment: Previously prelim verified as Specimen evaluation in progress on 10/19/2023 at 1401 EDT. Previously prelim verified as Specimen evaluation in progress on 10/19/2023 at 1501 EDT. Previously prelim verified as Specimen evaluation in progress on 10/19/2023 at 1601 EDT. Previously prelim verified as Specimen evaluation in progress on 10/19/2023 at 1701 EDT. Previously prelim verified as Specimen evaluation in progress on 10/19/2023 at 1801 EDT. Previously prelim verified as Specimen evaluation in progress on 10/19/2023 at 1901 EDT. Previously prelim verified as Specimen evaluation in progress on 10/19/2023 at 2001 EDT. Urine Urine specimen obtained by clean catch procedure / Unknown Non-blood Collection / Unknown 10/19/2023 12:01 PM EDT 10/19/2023 12:04 PM EDT us Luis NAJERA LAB URINE ORDERABLES Final Res ult Performing Organization Address City/State/[facility] Co de Phone Number [facility] [address] [place] [address] * (ABNORMAL) Urinalysis with reflex microscopic (Culture NOT Included) (10/19/2023 12:01 PM EDT) Color, Urine Yellow LAB URINALYSIS - AUTOMATED METHOD 10/19/2023 12:08 PM EDT [facility] Clarity, Urine Clear LAB URINALYSIS - AUTOMATED METHOD 10/19/2023 12:08 PM EDT [facility] Spec [place], Urine 1.021 <=1.005 to >=1.030 LAB URINALYSIS - AUTOMATED METHOD 10/19/2023 12:08 PM EDT [facility] pH, Urine 5.5 4.5 to 8 LAB URINALYSIS - AUTOMATED METHOD 10/19/2023 12:08 PM EDT [facility] Protein, Urine Negative Negative mg/dL LAB URINALYSIS - AUTOMATED METHOD 10/19/2023 12:08 PM EDT [facility] Glucose, Urine Negative Negative mg/dL LAB URINALYSIS - AUTOMATED METHOD 10/19/2023 12:08 PM EDT [facility] Ketones, Urine Trace(A) Negative mg/dL LAB URINALYSIS - AUTOMATED METHOD 10/19/2023 12:08 PM EDT [facility] Blood, Urine Negative Negative LAB URINALYSIS - AUTOMATED METHOD 10/19/2023 12:08 PM EDT [facility] Bilirubin, Urine Negative Negative LAB URINALYSIS - AUTOMATED METHOD 10/19/2023 12:08 PM EDT [facility] Urobilinogen, Urine 1.0 0.2 to 1.0 mg/dL LAB URINALYSIS - AUTOMATED METHOD 10/19/2023 12:08 PM EDT [facility] Leukocytes, Urine Negative Negative LAB URINALYSIS - AUTOMATED METHOD 10/19/2023 12:08 PM EDT [facility] Nitrite, Urine Negative Negative LAB URINALYSIS - AUTOMATED METHOD 10/19/2023 12:08 PM EDT [facility] Urine Urine specimen obtained by clean catch procedure / Unknown Non-blood Collection / Unknown 10/19/2023 12:01 PM EDT 10/19/2023 12:04 PM EDT Luis NAJERA LAB URINE ORDERABLES Final Res ult Performing Organization Address City/State/[facility] Co dc Phone Number [facility] [address] [place] [address] documented in this encounter Visit Diagnoses Diagnosis Abdominal pain, epigastric- Primary Nausea and vomiting, unspecified vomiting type documented in this encounter Administered Medications Inactive Administered Medications - up to 3 most recent administrations Medication Order MAR Action Action Date Dose Rate Site ketorolac (Toradol) injection 15 mg 15 mg, Intravenous, Once, 1 dose, On Thu10/19/23 at 1155, STAT Given 10/19/2023 12:32 PM EDT 15 mg lactated Ringer's infusion 1,000 mL 1,000 mL, Intravenous, Once, 1 dose, On Thu10/19/23 at 1155, STAT New Bag 10/19/2023 12:21 PM EDT 1,000 mL morphine PF 4 mg 4 mg, Intravenous, Once, 1 dose, On Thu10/19/23 at 1530, STAT Given 10/19/2023 3:31 PM EDT 4 mg ondansetron (Zofran) injection 4 mg 4 mg, Intravenous, Once, 1 dose, On Thu10/19/23 at 1155, STAT Given 10/19/2023 12:33 PM EDT 4 mg ondansetron (Zofran) injection 4 mg 4 mg, Intravenous, Once, 1 dose, On Thu10/19/23 at 1530, STAT Given 10/19/2023 3:31 PM EDT 4 mg oxyCODONE (Roxicodone) immediate release tablet 5 mg 5 mg, Oral, Once, 1 dose, On Thu10/19/23 at 1400, STAT Given 10/19/2023 2:19 PM EDT 5 mg promethazine (Phenergan) tablet 25 mg 25 mg, Oral, Once, 1 dose, On Thu10/19/23 at 1400, STAT Given 10/19/2023 2:20 PM EDT 25 mg documented in this encounter Active and Recently Administered Medications Times are shown in EDT. Scheduled Medication Order 10/17/2023 10/18/2023 10/19/2023 ketorolac (Toradol) injection 15 mg (COMPLETED) 15 mg, Intravenous, Once, 1 dose, On Thu10/19/23 at 1155, STAT 1232 (Given - Provid er: Oni Mcclelland Jr.) lactated Ringer's infusion 1,000 mL (COMPLETED) 1,000 mL, Intravenous, Once, 1 dose, On Thu10/19/23 at 1155, STAT 1221 (New Bag - Prov ider: Oni Mcclelland Jr.)[id number] (Stopped - Provider: Lia Purcell) morphine PF 4 mg (COMPLETED) 4 mg, Intravenous, Once, 1 dose, On Thu10/19/23 at 1530, STAT 1531 (Given - Provid er: Lia Purcell) ondansetron (Zofran) injection 4 mg (COMPLETED) 4 mg, Intravenous, Once, 1 dose, On Thu10/19/23 at 1155, STAT 1233 (Given - Provid er: Oni Mcclelland Jr.) ondansetron (Zofran) injection 4 mg (COMPLETED) 4 mg, Intravenous, Once, 1 dose, On Thu10/19/23 at 1530, STAT 1531 (Given - Provid er: Lia Purcell) oxyCODONE (Roxicodone) immediate release tablet 5 mg (COMPLETED) 5 mg, Oral, Once, 1 dose, On Thu10/19/23 at 1400, STAT 1419 (Given - Provid er: Lia Purcell) promethazine (Phenergan) tablet 25 mg (COMPLETED) 25 mg, Oral, Once, 1 dose, On 10/19/23 at 1400, STAT 1420 (Given - Provid er: Lia Purcell) documented in this encounter Additional Health Concerns Assessment Noted Time A fall risk assessment has been complete d for the patient 11/21/2020 2:30 PM EDT A Body Mass Index follow-up plan has been documented for the patient 04/14/2023 2:24 PM EST documented as of this encounter Care Teams [employer] Operator Relationship Specialty Start Date End Date Citlali Marquez APRN [address] [place] [id number] PCP - General Family Medicine 03/26/23 10/19/23 documented as of this encounter
--- OUTSIDE RECORDS SUMMARY | 2024-02-03 15:10 | XMS_ITS | Encounter Summary ---
Author Organization [facility] Address [address] [place] [address] Care Team Providers Care Emergency Vehicle Dispatcher Name Role Phone Pcp, No Primary Care Provider Unavailabl e Reason for Referral * Consultation (Routine) - Authorized Specialty Diagnoses / Procedures Referred By Susy t Referred To Contact Pain Medicine Diagnoses Abdominal pain, generalized Fazal Caceres MD [address] [place] [address] Phone: tel: fax: [facility] Interventional Pain Medicine [address] [place] [address] Phone: tel: fax: Referral ID Status Reason Start Date Expiration Date Visits Requested Visits Authorized [id number] Authorized Specialty Services Required 10/22/2023 04/22/2025 1 1 Reason for Visit * Reason Comments Abdominal Pain * Auth/Cert (Routine) Specialty Diagnoses / Procedures Referred By Contac t Referred To Contact Diagnoses Abdominal pain, epigastric [facility] [address] [place] [address] Phone: tel: [facility] Emergency Department [address] [place] [address] Phone: tel: Referral ID Status Reason Start Date Expiration Date Visits Re quested Visits Authorized [id number] 1 1 Encounter Details Date Type Department Care Team (Late st Contact Info) Description 10/22/2023 3:27 AM EDT - 10/22/2023 6:16 AM EDT Emergency [facility] Emergency Department [address] [place] [address] Fazal Caceres MD [address] [place] [address] Abdominal pain, generalized (Primary Dx) Discharge Disposition: [...] slept in a alf (including now)? 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 At this time no further emergent workup is indicated. Please return to ED if your symptoms worsen, change in location, change in severity, new symptoms develop or if you become concerned for your health. It is important to follow-up with your primary care physician VALERIE and let them know that you were seen in the emergency department today. Thank you. documented in this encounter Medications at Time [...] needed (pain). 4 tablet 10/13/2023 4 pancrelipase, [id number], (Creon) [id number] units capsule Take 1 capsule by mouth [...] Miscellaneous Notes * ED Provider Notes - Fazal Caceres MD - 10/22/2023 3:19 AM EDT Images from the original note were not included. - HPI Chief Complaint Patient presents with Abdominal Pain Lila Mcnally is a 37 y.o. female with a past medical history significant for GERD, HTN, Pancreatitis, anxiety/depression who presents today via private vehicle with abdominal pain. Pt c/o emesis,diarrhea, decreased PO and epigastric abdominal pain x 2 weeks secondary to pancreatitis, adds her abdominal pain has worsened x 2 days. Also c/o difficulty urinating. Also c/o migraine and a stiff neck secondary to abdominal pain. Pt reports she recently saw her PCP for abdominal syx who prescribed her percocet but states she saw her PCP again on Thursday d/t no syx relief and her PCP told her to present to ED for IVF. Patient denies fever, chills, CP, SOA. Patient has no other complaints at this time. 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 Physical Exam ED Triage Vitals [10/22/23 0334] Temp Heart Rate Resp BP 36.8 ??C (98.2 ??F) 95 18 (!) 165/95 SpO2 Temp Source Heart Rate Source Patient Position 96 % Oral -- -- BP Location FiO2 [...] No respiratory distress. Breath sounds: No stridor. Abdominal: Comments: Tenderness to palpation to epigastric region otherwise abdomen is soft, non-distended. Musculoskeletal: General: Normal range of motion. Cervical back: No rigidity. Skin: General: Skin is warm and dry. Neurological: Mental Status: She is alert and oriented to person, place, and time. Psychiatric: Mood and Affect: Mood normal. Behavior: Behavior normal. No data recorded ED Course & MDM In summary, Lila Mcnally is a 37 y.o. female with a past medical history significant for GERD, HTN, Pancreatitis, anxiety/depression who presents today via private vehicle with abdominal pain. Ptc/o emesis, diarrhea, decreased PO and epigastric abdominal pain x 2 weeks secondary to pancreatitis, adds her abdominal pain has worsened x 2 days. Also c/o difficulty urinating. Also c/o migraine and a stiff neck secondary to abdominal pain. Pt reports she recently saw her PCP for abdominal syxwho prescribed her percocet but states she saw her PCP again on Thursday d/t no syx relief and her PCP told her to present to ED for IVF. Patient denies fever, chills, CP, SOA. Patient has no other complaints at this time. Patient was afebrile, hemodynamically stable, in no respiratory distress, and nontoxic in appearance upon arrival and throughout the entire stay in the ED. On physical examination, patient had TTP to epigastric region, but abdomen soft, ND. The DDx includes, but is not limited to, viral gastro, PUD vs gastritis, duodenal ulcer, pancreatitis, hepatitis, biliary disease such as gallstones, cholecystitis, choledocholithiasis, cholangitis, marcia-mickey tear vs boerhaave. All ofthese have been considered, however ruling out the most morbid conditions drove my clinical assessment and thus the following laboratory and/or radiographic evaluation was conducted to the appropriate extent based on history and physical examination. On chart review, patient has been to the ED 5 times in last two weeks for the exact same symptoms with labs normal at all evaluations. On each visit, pt receives multiple rounds of opiates for pain control and pain medications to go home. Orders Placed This Encounter Procedures CBC w/diff CMP Lipase Lactic acid, venous Extra Tubes Gold Top Ambulatory referral to Pain Medicine EKG now - STAT (adult) All ordered laboratory studies independently reviewed and interpreted by myself and pertinent for: - CBC was unremarkable for any actionable leukocytosis, anemia, or thrombocytopenia. - CMP was unremarkable for any actionable electrolyte derangement, elevated creatine, or transaminitis. - Lipase WNL - Lactate WNL EKG independently reviewed and interpreted as follows: - EKG was unremarkable for any actionable ST segment changes consistent with acute ischemia, infarction. No actionable arrhythmia, interval prolongation. Medications/Medications Received in the ED: Medications acetaminophen (Tylenol) tablet 1,000 mg (1,000 mg Oral Not Given 10/22/23 0503) lactated Ringer's infusion 1,000 mL (1,000 mL Intravenous New Bag 10/22/23 0436) ondansetron (Zofran) injection 4 mg (4 mg Intravenous Given 10/22/23 0436) ketorolac (Toradol) injection 15 mg (15 mg Intravenous Given 10/22/23 0435) At this time, given unremarkable workup and/or symptomatic relief, as well as the fact that patientcontinued to remain well-appearing, it was felt that the patient was safe to be discharged home. The patient/parents were comfortable and in agreement with this plan. Patient instructed to follow up with [employer] Vice President/PCP. The patient/parents were given strict return precautions prior to being discharged from the emergency department. All questions were answered. Pt given referral to pain medicineteam as patient never saw them bc she got last time. DISPOSITION: Discharge ED Prescriptions None Discharge Instructions You were seen emergency department for evaluation of abdominal pain. At this time no further emergent workup is indicated. Please return to ED if your symptoms worsen, change in location, change in severity, new symptoms develop or if you become concerned for your health. It is important to follow-up with your primary care physician VALERIE and let them know that you were seen in the emergency department today. Thank you. Disposition Discharge AVS (Printed 10/22/2023) Discharge Orders Ambulatory referral to Pain Medicine Authorized - Date/Time: 10/22/2023/6:13 AM Scribe Attestation: This note was dictated to me, Julia Daniel, acting as a scribe for Fazal Rendon MD. Attending Attestation: The documentation was recorded by Julia Daniel acting as scribe in my presence at the time of the encounter and accurately reflects the service I personally performed. Fazal Caceres MD 10/22/23 0549 Fazal Caceres MD 10/22/23 0613 * ED Triage Notes - Mayra Lovell RN - 10/22/2023 3:19 AM EDT Pt reports chronic pancreatitis. Reports n/v/d and abd cramping. States that she seen her PCP on Thursday and they suggested she come in for IVF. PT also reports neck pain. documented in this encounter Plan of Treatment Scheduled Referrals Name Type Priority Associated Diagnoses Order Schedule Ambulatory referral to Pain Medicine Outpatient Referral Routine Abdominal pain, generalized 1 Occurrences starting 10/22/2023 until 04/22/2025 documented as of this encounter Procedures Procedure Name Priority Date/Time Associated Diagnosis Comments EXTRA TUBE GOLD TOP Routine 10/22/2023 4 :33 AM EDT LACTATE, VENOUS STAT 10/22/2023 4:33 AM EDT EXTRA TUBES Routine 10/22/2023 4:33 AM EDT CBC WITH AUTO DIFFERENTIAL STAT 10/22/2023 4:33 AM EDT LIPASE, PLASMA STAT 10/22/2023 4:33 AM EDT COMPREHENSIVE METABOLIC PANEL, PLASMA STAT 10/22/2023 4:33 AM EDT ECG ADULT STAT 10/22/2023 3:47 AM EDT documented in this encounter Results * Gold Top (10/22/2023 4:33 AM EDT) Pathologist [facility] Extra Hold for add-ons 10/22/2023 7:01 AM EDT [facility] Comment:Auto resulted. Blood Venous blood specimen / Unknown 10/22/2023 4:33 AM EDT 10/22/2023 4:38 AM EDT us Fazal Caceres MD LAB BLOOD ORDERABLES Final Re sult Performing Organization Address [facility] Co de Phone Number [facility] [address] [place] [address] * Lactic acid, venous (10/22/2023 4:33 AM EDT) Pathologist [facility] Lactate, Venous, Whole Blood 0.8 0.5 - 2.2 mmol/L LAB HEMATOLOGY METHOD 10/22/2023 4:44 AM EDT [facility] Blood Venous blood specimen / Unknown Venipuncture / Unknown 10/22/2023 4:33 AM EDT 10/22/2023 4:38 AM EDT us Fazal Caceres MD LAB BLOOD ORDERABLES Final Re sult Performing Organization Address [facility] Co de Phone Number [facility] [address] [place] [address] * (ABNORMAL) Lipase (10/22/2023 4:33 AM EDT) Pathologist [facility] Lipase, Plasma 18(L) 19 - 63 U/L 10/22/2023 5:13 AM EDT [facility] Blood Venous blood specimen / Unknown Venipuncture / Unknown 10/22/2023 4:33 AM EDT 10/22/2023 4:38 AM EDT us Fazal Caceres MD LAB BLOOD ORDERABLES Final Re sult Performing Organization Address [facility] Co de Phone Number [facility] [address] [place] [address] * (ABNORMAL) CMP (10/22/2023 4:33 AM EDT) [facility] Glucose, Plasma 91 74 - 99 mg/dL 10/22/2023 5:13 AM EDT [facility] BUN, Plasma 5(L) 7 - 21 mg/dL 10/22/2023 5:[facility] Creatinine, Plasma 0.52(L) 0.60 - 1.10 mg/dL 10/22/2023 5:13 AM EDT [facility] BUN/Creatinine Ratio 10 10/22/2023 5:13 AM EDT [facility] Sodium, Plasma 138 136 - 145 mmol/L 10/22/2023 5:13 AM [facility] Potassium, Plasma 3.8 3.7 - 4.8 mmol/L 10/22/2023 5:13 AM [facility] Chloride, Plasma 104 97 - 107 mmol/L 10/22/2023 5:13 AM [facility] CO2, Plasma 22 22 - 29 mmol/L 10/22/2023 5:13 AM [facility] Anion Gap 12 6 - 16 mmol/L 10/22/2023 5:13 AM [facility] Total Calcium, Plasma 9.3 8.9 - 10.2 mg/dL 10/22/2023 5:13 AM [facility] Total Protein 6.8 6.3 - 7.9 g/dL 10/22/2023 5:13 AM [facility] Albumin, Plasma 4.2 3.5 - 5.2 g/dL 10/22/2023 5:13 AM [facility] AST, Plasma 18 10 - 35 U/L 10/22/2023 5:13 AM [facility] ALT, Plasma 19 10 - 35 U/L 10/22/2023 5:13 AM [facility] Alkaline Phosphatase, Plasma 98 35 - 104 U/L 10/22/2023 5:13 AM EDT [facility] Total Bilirubin, Plasma 0.5 0.2 - 1.1 mg/dL 10/22/2023 5:13 AM [facility] eGFRcr 123.7 mL/min/1.7 3m*2 10/22/2023 5:13 AM EDT [facility] Comment:Reported eGFRcr in m L/min/1.73m2 is based the CKD-EPI 2020 equation that does not use a race coefficient. Blood Venous blood specimen / Unknown Venipuncture / Unknown 10/22/2023 4:33 AM EDT 10/22/2023 4:38 AM EDT us Fazal Caceres MD LAB BLOOD ORDERABLES Final Re sult [facility] [address] [place] [address] * (ABNORMAL) CBC w/diff (10/22/2023 4:33 AM EDT) WBC Count 4.94 3.70 - 10.30 10*3/uL LAB HEMATOLOGY METHOD 10/22/2023 4:42 AM EDT [facility] RBC Count 4.12 3.90 - 5.20 10*6/uL LAB HEMATOLOGY METHOD 10/22/2023 4:42 AM EDT [facility] HGB 10.4(L) 11.2 - 15.7 g/dL LAB HEMATOLOGY METHOD 10/22/2023 4:42 AM EDT [facility] HCT 32.2(L) 34.0 - 45.0 % LAB HEMATOLOGY METHOD 10/22/2023 4:42 AM EDT [facility] Platelet Count 229 155 - 369 10*3/uL LAB HEMATOLOGY METHOD 10/22/2023 4:42 AM EDT [facility] MCV 78(L) 79 - 98 fL LAB HEMATOLOGY METHOD 10/22/2023 4:42 AM EDT [facility] MCH 25.2(L) 26.0 - 32.0 pg LAB HEMATOLOGY METHOD 10/22/2023 4:42 AM EDT [facility] MCHC 32.3 30.7 - 35.5 g/dL LAB HEMATOLOGY METHOD 10/22/2023 4:42 AM EDT [facility] RDW 16.6(H) 11.5 - 14.5 % LAB HEMATOLOGY METHOD 10/22/2023 4:42 AM EDT [facility] MPV 9.5 8.8 - 12.5 fL LAB HEMATOLOGY METHOD 10/22/2023 4:42 AM EDT [facility] nRBC 0.0 <=0.0 per 100 WBCs LAB HEMATOLOGY METHOD 10/22/2023 4:42 AM EDT [facility] Differential Type Automated LAB HEMATOLOGY METHOD 10/22/2023 4:42 AM EDT [facility] Neutrophils % 70.0 % LAB HEMATOLOGY METHOD 10/22/2023 4:42 AM EDT [facility] Lymphocytes % 23.0 % LAB HEMATOLOGY METHOD 10/22/2023 4:42 AM EDT [facility] Monocytes % 5.0 % LAB HEMATOLOGY METHOD 10/22/2023 4:42 AM EDT [facility] Eosinophils % 1.0 % LAB HEMATOLOGY METHOD 10/22/2023 4:42 AM EDT [facility] Basophils % 0.0 % LAB HEMATOLOGY METHOD 10/22/2023 4:42 AM EDT [facility] Immature Granulocytes % 1.0 % LAB HEMATOLOGY METHOD 10/22/2023 4:42 AM EDT [facility] Neutrophils Absolute 3.48 1.60 - 6.10 10*3/uL LAB HEMATOLOGY METHOD 10/22/2023 4:42 AM EDT [facility] Lymphocytes Absolute 1.14(L) 1.20 - 3.90 10*3/uL LAB HEMATOLOGY METHOD 10/22/2023 4:42 AM EDT [facility] Monocytes Absolute 0.22(L) 0.30 - 0.90 10*3/uL LAB HEMATOLOGY METHOD 10/22/2023 4:42 AM EDT [facility] Eosinophils Absolute 0.05 0.00 - 0.50 10*3/uL LAB HEMATOLOGY METHOD 10/22/2023 4:42 AM EDT [facility] Basophils Absolute 0.02 0.00 - 0.10 10*3/uL LAB HEMATOLOGY METHOD 10/22/2023 4:42 AM EDT [facility] Immature Granulocytes Absolute 0.03 0.00 - 0.06 10*3/uL LAB HEMATOLOGY METHOD 10/22/2023 4:42 AM EDT [facility] Blood Venous blood specimen / Unknown Venipuncture / Unknown 10/22/2023 4:33 AM EDT 10/22/2023 4:38 AM EDT [facility] - 10/22/2023 4:42 AM EDT Therapeutic decision making should be based on absolute values, rather than percentages. us Fazal Caceres MD LAB BLOOD ORDERABLES Final Re sult [facility] [address] [place] [address] * EKG now - STAT (adult) (10/22/2023 3:47 AM EDT) EKG DIAGNOSIS CLASS Abnormal MUSE ECG Ventricular Rate 89 BPM MUSE ECG Atrial Rate 89 BPM MUSE ECG NC Interval 116 ms MUSE ECG QRSD Interval 94 ms MUSE ECG QT Interval 390 ms MUSE ECG QTC Interval 474 ms MUSE ECG P [place] 8 degrees MUSE ECG R [place] 19 degrees MUSE ECG T Wave [place] 15 degrees MUSE ECG Diagnosis Normal sinus rhythm MUSE ECG Diagnosis Cannot rule out MUSE ECG Diagnosis Anterior infarct MUSE ECG Diagnosis , age undetermined MUSE ECG Diagnosis Abnormal ECG MUSE ECG Diagnosis Confirmed by Ankur Muniz ([id number]) on 10/22/2023 10:48:55 AM MUSE ECG 10/22/2023 3:47 AM EDT 10/22/2023 10:48 AM EDT Fazal Caceres MD ECG ORDERABLES Final Result MUSE ECG documented in this encounter Visit Diagnoses Diagnosis Abdominal pain, generalized- Primary documented in this encounter Administered Medications Inactive Administered Medications - up to 3 most recent administrations Medication Order MAR Action Action Date Dose Rate Site ketorolac (Toradol) injection 15 mg 15 mg, Intravenous, Once, 1 dose, On Annabel 10/22/23 at 0340, STAT Given 10/22/2023 4:35 AM EDT 15 mg lactated Ringer's infusion 1,000 mL 1,000 mL, Intravenous, Once, 1 dose, On Annabel 10/22/23 at 0340, STAT New Bag 10/22/2023 4:36 AM EDT 1,000 mL ondansetron (Zofran) injection 4 mg 4 mg, Intravenous, Once, 1 dose, On Annabel 10/22/23 at 0340, STAT Given 10/22/2023 4:36 AM EDT 4 mg documented in this encounter Active and Recently Administered Medications Times are shown in EDT. Scheduled Medication Order 10/20/2023 10/21/2023 10/22/2023 acetaminophen (Tylenol) tablet 1,000 mg 1,000 mg, Oral, Once, 1 dose, On Annabel 10/22/23 at 0340, STAT 0503 (Not Given - Pr ovider: Walt Cooley - Reason: NPO - Comment: pt unable to tolerate PO intake) ketorolac (Toradol) injection 15 mg (COMPLETED) 15 mg, Intravenous, Once, 1 dose, On Annabel 10/22/23 at 0340, STAT 0435 (Given - Provid er: Walt Cooley) lactated Ringer's infusion 1,000 mL (COMPLETED) 1,000 mL, Intravenous, Once, 1 dose, On Annabel 10/22/23 at 0340, STAT 0436 (New Bag - Prov ider: Walt Cooley)[id number] (Stopped - Provider: Walt Cooley) ondansetron (Zofran) injection 4 mg (COMPLETED) 4 mg, Intravenous, Once, 1 dose, On Annabel 10/22/23 at 0340, STAT 0436 (Given - Provid er: Walt Cooley) documented in this encounter Additional Health Concerns Assessment Noted Time A fall risk assessment has been complete d for the patient 11/21/2020 2:30 PM EDT A Body Mass Index follow-up plan has been documented for the patient 04/14/2023 2:24 PM EST documented as of this encounter Care Teams Emergency Vehicle Dispatcher Relationship Specialty Start Date End Date Pcp, [place] [address] PCP - General Family Medicine 10/22/23 10/22/23 documented as of this encounter
--- OUTSIDE RECORDS SUMMARY | 2024-02-03 15:11 | XMS_ITS | Encounter Summary ---
Author Organization Healthcare Address [address] [place] [address] Care Team Providers Care Plant Physiologist Name Role Phone BurbankCitlali lowe Gilberto ORELLANA Primary Care Provider [phone] Reason for Visit * Reason Comments Abdominal Pain Encounter Details Date Type Department Care Team (Late st Contact Info) Description 07/21/2023 9:39 AM EDT - 07/21/2023 11:21 AM EDT Emergency [facility] Emergency Department [address] [place] [address] Epigastric abdominal pain (Primary Dx); History of D&C Discharge Disposition: Home or Self Care Social [...] drink first t caleb in the morning (EYE-TECHNICAL SUPPORT ASSISTANT) to steady your nerves or to get rid of a hangover? 0 04/11/2023 CAGE Questionnaire Score 0 024 Utilities Answer Date Recorded In the past 12 months has th e [employer], gas, oil, or water company threatened to [...] Sign Reading Time Taken Comments Blood Pressure 120/97 07/21/2023 11:18 AM EDT Pulse 83 07/21/2023 11:18 AM EDT Temperature 36.7 ??C (98 ??F) 07/21/2023 11: 18 AM EDT Respiratory Rate 16 07/21/2023 11:1 8 AM EDT Oxygen Saturation 99% 07/21/2023 11: 18 AM EDT Inhaled Oxygen Concentration - - Weight 99.2 kg (218 lb 11.1 oz) 07/21/2023 9:37 AM EDT Height - - Body Mass Index 36.39 07/03/2023 9:35 AM EDT documented in this [...] this encounter Discharge Instructions * Discharge Instructions* Claude Caceres PA - 07/21/2023 10:57 AM EDT Labs appear well, hemoglobin is normal. Sent with nausea medications. Advance diet from clear liquids and then to mild foods to allow for bowel rest. Follow with your OBGYN provider tomorrow as scheduled. Return for new or worsening symptoms or other concerns. documented in this encounter Medications at Time of Discharge pantoprazole (Protonix) 40 MG EC tablet Take 1 tablet (40 mg) by mouth 1 (one) time each day. Do not crush, chew, or split. metoclopramide (Reglan) 10 MG tablet Take 1 tablet (10 mg) by mouth 4 (four) times a day for 10 days. 40 tablet 07/21/2023 4 cholecalciferol (Vitamin D3) 125 MCG (5000 UT) [...] crush or chew. 30 capsule 02/23/2023 4 ibuprofen 200 MG tablet Take 2-4 [...] if symptoms continue 1 each 02/23/2023 4 pancrelipase, Ghm-Dzie-Nzao, (Creon) 6000-60320 units capsule Take 1 capsule by mouth [...] if needed for nausea or vomiting. 4 pyridoxine (B-6) 50 MG tablet Take 1 tablet (50 mg) by mouth 1 (one) time each day if needed (nausea, vomiting). 30 tablet 06/04/2023 4 sucralfate (Carafate) 1 GM/10ML suspension Take 10 mL (1 g) by mouth every 6 (six) hours. 4 documented as of this encounter Miscellaneous Notes * ED Procedure Note - Claude Caceres PA - 07/21/2023 9:16 AM EDTAssociated Order(s): POC Ultrasound - Bedside Procedure Reason: Recent reported D&C POC Ultrasound - Bedside Performed by: Claude Caceres PA Authorized by: George Martinez MD Procedure specific details: Pelvic Ultrasound A focused ultrasound exam of the pelvis was performed in the patient for the purpose of identifying intra-uterine (IUP) versus signs of ectopic . A transabdominal approachwas used. The ultrasound was performed with the following indications, as noted in the H&P, in a patient with a positive test: Recent reports D&C Identified structures: Uterus Findings Exam of the above structures revealed the following findings: Uterus: No IUP identified given reported history Right Adnexa: Unable to visualize Left Adnexa: Unable to visualize Free fluid in cul de sac: absent Other: N/A Impression: No IUP identified, consistent with recent procedure performed at OSH The images were Saved in PACS. The study was technically adequate. Comments: N/A Claude Caceres PA 07/21/23 2249 Cosigned by George Martinez MD at 07/22/2023 7:00 AM EDT Associated attestation - George Martinez MD - 07/22/2023 7:00 AM EDT By electronically signing this report, I, the attending physician, attest that I have personally reviewed the image(s) for the above examination(s) and agree with the final edited report. * ED Provider Notes - Claude Caceres PA - 07/21/2023 9:16 AM EDT Images from the original note were not included. - HPI Chief Complaint Patient presents with Abdominal Pain HPI Lila is a 37 year old female who is well known to this emergency department, history of chronic abdominal pain, pancreatitis in the past, fibromyalgia, GERD, who presents for epigastric abdominal pain starting yesterday wrapping to her back, notes that she always has pain and it became more severe. Notes that she was , but had D&C on Thursday for reported miscarriage and was given charles sfusion Thursday as there was a significant amount of bleeding. State that she had this done at [facility]. Notes spotting couple days ago but no vaginal bleeding or pelvic pain. She does follow tomorrow with her OB who is located out of town. Denies vaginal discharge, dysuria, constipation, diarrhea, fever, chills, chest pain, shortness of air Jo Coma Scale Score: 15 Patient History Past Medical History: Diagnosis Date Anxiety Arthritis Depression Fibromyalgia Gastric erosions 04/19/2021 GERD (gastroesophageal reflux disease) Hypertension Intentional overdose ([facility]) 12/20/2021 Nicotine dependence Obesity Pancreatitis Past Surgical [...] Marijuana Comment: a few times a month Immunization History Immunization History: not reviewed Allergies: Allergies Allergen Reactions Compazine [Prochlorperazine] Other - please document in the comment field Dystonic rxn treated w/ diphenhydramine Droperidol Other - please document in the comment field Experienced an acute dystonic reaction treated with diphenhydramine Tramadol Rash and Dizziness Patient described previously experiencing panic attacks too. Review of Systems Review of Systems Constitutional: Negative for chills and fever. HENT: Negative for ear pain and sore throat. Respiratory: Negative for cough and shortness of breath. Cardiovascular: Negative for chest pain and palpitations. Gastrointestinal: Positive for abdominal pain, nausea and vomiting. Negative for constipation and diarrhea. Genitourinary: Negative for difficulty urinating, dysuria, hematuria, pelvic pain, vaginal bleeding, vaginal discharge and vaginal pain. Musculoskeletal: Negative for arthralgias and back pain. Skin: Negative for color change and rash. Neurological: Negative for syncope. All other systems reviewed and are negative. Physical Exam ED Triage Vitals [07/21/23 0937] Temp Heart Rate Resp BP 36.9 ??C (98.4 ??F) 94 19 (!) 123/94 SpO2 Temp Source Heart Rate Source Patient Position 99 % Oral -- Sitting BP Location FiO2 (%) Right arm -- Physical Exam Vitals and nursing note reviewed. Constitutional: General: She is not in acute distress. Appearance: She is well-developed. She is not ill-appearing or diaphoretic. HENT: Head: Normocephalic. Right Ear: External ear normal. Left Ear: External ear normal. Nose: Nose normal. No rhinorrhea. Mouth/Throat: Mouth: Mucous membranes are moist. Eyes: Extraocular Movements: Extraocular movements intact. Conjunctiva/sclera: Conjunctivae normal. Cardiovascular: Rate and Rhythm: Normal rate and regular rhythm. Heart sounds: Normal heart sounds. No murmur heard. Pulmonary: Effort: Pulmonary effort is normal. No respiratory distress. Breath sounds: Normal breath sounds. No stridor. No wheezing, rhonchi or rales. Abdominal: General: Abdomen is flat. There is no distension. Palpations: Abdomen is soft. Tenderness: There is abdominal tenderness in the epigastric area. There is no guarding or rebound. Negative signs include Carlson's sign and McBurney's sign. Musculoskeletal: General: No deformity. Cervical back: Normal range of motion and neck supple. Skin: General: Skin is warm and dry. Coloration: Skin is not jaundiced or pale. Neurological: General: No focal deficit present. Mental Status: She is alert and oriented to person, place, and time. ED Course & MDM ED Course as of 07/21/232246July 21, 2023 1008 Outside record review. She presented 07/12 at [facility] for SAB at 11 weeks, no cardiac activity was seen, without vaginal bleeding, but had abdominal cramping in her lower abdomen. Patient had desired D&C. [KP] 1031 RBC(!): 3.70 [KP] 1031 Hemoglobin(!): 10.3 Appropriate [KP] 1031 Hematocrit(!): 33.2 [KP] 1058 hCG, Total Beta(!): 467 Decreased from prior, adequate decreases from prior s/p D&C [KP] ED Course User Index [KP] Claude Caceres PA Clinical Impressions as of 07/21/232246 Epigastric abdominal pain History of D&C - Medical Decision Making Lila Mcnally is a 37 yrs old female presents today for Chief Complaint Patient presents with Abdominal Pain . Summary of ED Care: This is a 37-year-old female with a history of chronic abdominal pain, pancreatitis, fibromyalgia, GERD, and most recently intrauterine , status post spontaneous abortionand dilation and curettage, who presents today for evaluation of exacerbation of her chronic epigastric abdominal pain that started yesterday. Arrived hemodynamically stable, in no acute distress. I did obtain records from outside emergency department, and I performed bedside ultrasound for furtherevaluation of her reported D&C, and did not identify any intrauterine , and prior records did show that she had D and C performed. She denied any significant bleeding, however elected to obtain a CBC, and an hCG to evaluate for down trending of her HCG levels from her prior . She was given multimodal pain and nausea control with success, patient tolerating by mouth intake atthe bedside without difficulty. She was stable for continued outpatient management of her chronic pain. Recommended she follow with her OBGYN providers as scheduled tomorrow as reported. Recommended return precautions upon discharge. Additional MDM Differential Diagnoses: Based on her history and physical exam, my differential diagnosis included chronic pain, blood lossanemia, complication, among others. Ruling out the most morbid conditions drove my clinical assessment. In order to fully explore differential these tests were ordered. Orders Placed This Encounter Procedures CBC hCG, quantitative, Prior Records Review: External Records [facility] for this [facility] and found to be pertinent. Records review indicates that she would presented for epigastric abdominal pain, had stated that there was no chance of and did act surprised when OSH discovered there was a on her labs although she had multiple prior ER visits stating she was prior. Any paper records reviewed from outside hospital will be summarized in ED Course It should be noted that her chronic conditions includes chronic pain, pancreatitis, , which currently is not at goal therapy. This complicates her clinical picture because it may be exacerbating symptoms. Independent Results Review: I saw and interpreted all lab results on labs ordered on the patient. Specific comments on various labs can be found in ED course. Any labs noted in the ED course without specific explanation can be assumed to be pertinent normal results. Prescription Medication Management in ED and Reassessment: Medications HYDROmorphone (Dilaudid) injection 0.5 mg (has no administration in time range) metoclopramide (Reglan) tablet 10 mg (has no administration in time range) Patient reevaluated after treatments listed above provided and condition resolved with medications given.Patient comfortable and tolerating PO intake. I discussed with the patient/family the value of prescribing Anti-emetics and we, through shared decision making, decided that these medications would benefit the patient based on todays illness. Consults and Discussions with other providers: Disposition: Ultimately, this patient Was discharged Home (Discharge) The primary encounter diagnosis was Epigastric abdominal pain. A diagnosis of History of D&C was also pertinent to this visit. . Patient was counseled on the diagnoses. Discharge medications if any are listed below. Listed medications are thought be either curative for listed diagnoses or will help control ongoing symptoms. Patient is requested to follow up with OBGYN in order to obtain routine follow-up. Instructions on follow up as well as precautions to return to the ER provided verbally by the EDMD, as well as written in patients discharge education packet. Specific instructions provided are as follows: Discharge Instructions Labs appear well, hemoglobin is normal. Sent with nausea medications. Advance diet from clear liquids and then to mild foods to allow for bowel rest. Follow with your OBGYN provider tomorrow as scheduled. Return for new or worsening symptoms or other concerns. Disposition Discharge AVS (Printed 07/21/2023) ED Prescriptions None Sign Off Checklist Clinical Impression: Complete ED Disposition: Complete - Claude Caceres PA 07/21/23 0657 Cosigned by George Martinez MD at 07/22/2023 6:59 AM EDT Associated attestation - George Martinez MD - 07/22/2023 6:59 AM EDT The patient was seen only by Advanced Practice Provider (AJAY), and care was reviewed with me. * ED Triage Notes - Angeles Palacios RN - 07/21/2023 9:16 AM EDT Patient reports severe abdominal pain, vomiting, recently had a dnc a week ago at [facility] needed a blood transfusion documented in this encounter Plan of Treatment Not on file documented as of this encounter Procedures Procedure Name Priority Date/Time Associated Diagnosis Comments CBC W/O DIFFERENTIAL STAT 07/21/2023 10:19 AM EDT HCG, QUANTITATIVE STAT 07/21/2023 10: 19 AM EDT [facility] ED POCUS PROCDOC Routine 07/21/2023 9:16 AM EDT documented in this encounter Results * (ABNORMAL) hCG, quantitative, (07/21/2023 10:19 AM EDT) hCG, Total Beta 467(H) <5 mIU/mL 07/21/2023 10:55 AM EDT [facility] Blood Venous blood specimen / Unknown Venipuncture / Unknown 07/21/2023 10:19 AM EDT 07/21/2023 10:24 AM EDT Narrative [facility] - 07/21/2023 10:55 AM EDT Patients: ? Normal Range Premenopausal Female < [...] or kits cannot be used interchangeably. us Claude NAJERA LAB BLOOD ORDERABLES Final Res ult [facility] [address] [place] [address] * (ABNORMAL) CBC (07/21/2023 10:19 AM EDT) WBC Count 5.81 3.70 - 10.30 10*3/uL LAB HEMATOLOGY METHOD 07/21/2023 10:28 AM EDT [facility] RBC Count 3.70(L) 3.90 - 5.20 10*6/uL LAB HEMATOLOGY METHOD 07/21/2023 10:28 AM EDT [facility] HGB 10.3(L) 11.2 - 15.7 g/dL LAB HEMATOLOGY METHOD 07/21/2023 10:28 AM EDT [facility] HCT 33.2(L) 34.0 - 45.0 % LAB HEMATOLOGY METHOD 07/21/2023 10:28 AM EDT [facility] Platelet Count 193 155 - 369 10*3/uL LAB HEMATOLOGY METHOD 07/21/2023 10:28 AM EDT [facility] MCV 90 79 - 98 fL LAB HEMATOLOGY METHOD 07/21/2023 10:28 AM EDT [facility] MCH 27.8 26.0 - 32.0 pg LAB HEMATOLOGY METHOD 07/21/2023 10:28 AM EDT [facility] MCHC 31.0 30.7 - 35.5 g/dL LAB HEMATOLOGY METHOD 07/21/2023 10:28 AM EDT [facility] RDW 15.8(H) 11.5 - 14.5 % LAB HEMATOLOGY METHOD 07/21/2023 10:28 AM EDT [facility] MPV 9.6 8.8 - 12.5 fL LAB HEMATOLOGY METHOD 07/21/2023 10:28 AM EDT [facility] nRBC 0.5(H) <=0.0 per 100 WBCs LAB HEMATOLOGY METHOD 07/21/2023 10:28 AM EDT [facility] Blood Venous blood specimen / Unknown Venipuncture / Unknown 07/21/2023 10:19 AM EDT 07/21/2023 10:24 AM EDT us Claude NAJERA LAB BLOOD ORDERABLES Final Res ult [facility] [address] [place] [address] * [facility] ED POCUS PROCDOC (07/21/2023 9:16 AM EDT) Narrative George Martinez MD - 07/21/2023 9:16 AM EDT Claude Caecres PA ? 07/21/2023 10:49 PM POC Ultrasound - Bedside Performed by: Claude Caceres PA Authorized by: George Martinez MD ?? Procedure specific details: ?? Pelvic Ultrasound A focused ultrasound exam of the pelvis was performed in the patient for the purpose of identifying intra-uterine (IUP) versus signs of ectopic . ??A transabdominal approach was used. The ultrasound was performed with the following indications, as noted in the H&P, in a patient with a positive test: Recent reports D&C Identified structures: Uterus Findings Exam of the above structures revealed the following findings: Uterus: No IUP identified given reported history Right Adnexa: Unable to visualize Left Adnexa: Unable to visualize Free fluid in cul de sac: absent Other: N/A Impression: No IUP identified, consistent with recent procedure performed at OSH ?? The images were Saved in PACS. The study was technically adequate. Comments: N/A us George Martinez MD IN CLINIC/BEDSIDE ORDERABLE S Final Result documented in this encounter Visit Diagnoses Diagnosis Epigastric abdominal pain- Primary Abdominal pain, epigastric History of D&C Other postprocedural status documented in this encounter Administered Medications Inactive Administered Medications - up to 3 most recent administrations Medication Order MAR Action Action Date Dose Rate Site HYDROmorphone (Dilaudid) injection 0.5 mg 0.5 mg, Intramuscular, Once, 1 dose, On Thu07/21/23 at 1005, STAT Given 07/21/2023 10:11 AM EDT 0.5 mg Right Deltoid metoclopramide (Reglan) tablet 10 mg 10 mg, Oral, Once, 1 dose, On Thu07/21/23 at 1005, STAT Given 07/21/2023 10:12 AM EDT 10 mg documented in this encounter Active and Recently Administered Medications Times are shown in EDT. Scheduled Medication Order 07/19/2023 07/20/2023 07/21/2023 HYDROmorphone (Dilaudid) injection 0.5 mg (COMPLETED) 0.5 mg, Intramuscular, Once, 1 dose, On Thu07/21/23 at 1005, STAT 1011 (Given - Provid er: Andrew Gonzalez RN) metoclopramide (Reglan) tablet 10 mg (COMPLETED) 10 mg, Oral, Once, 1 dose, On Thu07/21/23 at 1005, STAT 1012 (Given - Provid er: Andrew Gonzalez RN) documented in this encounter Additional Health Concerns Assessment Noted Time A fall risk assessment has been complete d for the patient 11/21/2020 2:30 PM EDT A Body Mass Index follow-up plan has been documented for the patient 04/14/2023 2:24 PM EST documented as of this encounter Care Teams Plant Physiologist Relationship Specialty Start Date End Date Citlali Marquez, ESTEBAN [address] [place] [id number] PCP - General Family Medicine 03/26/23 10/19/23 documented as of this encounter
--- OUTSIDE RECORDS SUMMARY | 2024-02-03 15:11 | XMS_ITS | Encounter Summary ---
Author Organization Healthcare Address [address] [place] [address] Care Team Providers Care Kiln Burner Name Role Phone GlensideCitlali lowe Gilberto ORELLANA Primary Care Provider [phone] Reason for Visit * Reason Comments Abdominal Pain Encounter Details Date Type Department Care Team (Late st Contact Info) Description 06/15/2023 12:11 PM EDT - 06/15/2023 1:40 PM EDT Emergency [facility] [address] [place] [address] Chad Mcclure MD [address] [place] [address] Abdominal pain, epigastric (Primary Dx); Nausea and vomiting, unspecified vomiting type; Diarrhea, unspecified type Discharge Disposition: Left Against Medical Advice Social History Tobacco Use Types Packs/Day Years [...] 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 Do not crush, chew, or split. nitrofurantoin, macrocrystal-monoh ydrate, (Macrobid) 100 MG capsule Take 1 capsule (100 mg) by mouth 2 (two) times a day for 5 days. 10 capsule 06/12/2023 4 cholecalciferol (Vitamin D3) 125 MCG (5000 [...] at night if needed (for sleep). 4 metoclopramide (Reglan) 10 MG tablet Take 1 tablet (10 mg) by mouth 3 (three) times a day if needed (nausea) for up to 30 doses. 30 tablet 06/14/2023 4 naloxone (Kloxxado) 8 mg/0.1 mL nasal spray 1. Give 1 spray in nostril for no/slow breathing or cannot wake after opioid use 2. Call 911 3. Repeat in other nostril if symptoms continue 1 each 02/23/2023 4 pancrelipase, Pyo-Zsqj-Feqy, (Creon) 6000-01730 units capsule Take 1 capsule by mouth [...] Miscellaneous Notes * ED Provider Notes - Rhea Gr APRN - 06/15/2023 11:13 AM EDT Images from the original note were not included. - HPI Chief Complaint Patient presents with Abdominal Pain Ms. Mcnally is a 37 y.o. female patient with PMH of anxiety, depression, fibromyalgia, GERD, HTN, nicotine dependence, and pancreatitis, who presents to the emergency department with complaints of epigastric, upper abdominal pain, nausea, vomiting and diarrhea. Symptoms began approx 5 days ago and she states they have progressively worsened. She reports she is currently 8 weeks gestation and she attempted to see her OBGYN today, but cannot be seen until 06/24/2023 and was told to come to the ER. Initially, the patient states that she has chronic pancreatitis and she states that sometimes, her lipase does not show her acute pancreatitis. She states that she has tried Tylenol at home but no relief. She reports she was told that I can have pain medications even though I am . She deniesfever/chills. She endorses multiple episodes of vomiting and unable to hold food down. She states the diarrhea started today. Denies blood in her stool or emesis. She denies any vaginal bleeding or abnormal discharge. She also denies any lower abdominal pain or pelvic pain. She denies dysuria. 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 [place] Coma Scale Score: 15 Patient History Past Medical History: Diagnosis Date Anxiety Arthritis Depression Fibromyalgia Gastric erosions 04/19/2021 GERD (gastroesophageal reflux disease) Hypertension Intentional overdose ([facility]) 12/20/2021 Nicotine dependence Obesity [...] Other Tobacco Use Smoking status: Every Day Packs/day: 0.50 Years: 20.00 Additional pack years: 0.00 Total pack years: 10.00 Types: Cigarettes Smokeless tobacco: Never Vaping Use Vaping Use: Never used Substance Use Topics Alcohol use: Not Currently [...] Constitutional: Negative for chills and fever. HENT: Negative. Respiratory: Negative for shortness of breath. Cardiovascular: Negative for chest pain. Gastrointestinal: Positive for abdominal pain (epigastric, LUQ), diarrhea, nausea and vomiting. Negative for blood in stool. Genitourinary: Negative for decreased urine volume, difficulty urinating, dysuria, flank pain, frequency, pelvic pain, vaginal bleeding and vaginal discharge. Musculoskeletal: Negative for back pain and neck pain. Skin: Negative for color change and rash. Neurological: Negative for dizziness and syncope. Physical Exam ED Triage Vitals [06/15/23 1121] Temp Heart Rate Resp BP 36.7 ??C (98.1 ??F) 115 16 126/77 SpO2 Temp Source Heart Rate Source Patient Position 100 % Oral -- Sitting BP Location FiO2 (%) Right arm -- Physical Exam Vitals and nursing note reviewed. Constitutional: General: She is not in acute distress. Appearance: She is well-developed. Comments: Upon entering room, the patient is sleeping but arouses after verbal stimulii. She is drowsy during our conversation HENT: Head: Normocephalic and atraumatic. Mouth/Throat: Mouth: [...] and left upper quadrant. Musculoskeletal: General: No swelling. Cervical back: Neck supple. Skin: General: Skin is warm and dry. Capillary Refill: Capillary refill takes less than 2 seconds. Neurological: Mental Status: She is oriented to person, place, and time. Psychiatric: Mood and Affect: Mood normal. ED Course & MDM ED Course as of 06/15/23 1403 Mon Jun 15, 2023 [id number] Patient states she is leaving A as she is not happy with our plan of care at this time. She states we are doing nothing to treat her pain and she knows she has chronic pancreatitis. I explained to the patient that we have to be cautious with pain medications since she is 8 weeks andwe aren't sure what we are treating at this time. I attempted to explain to the patient that once we know what we are treating we can proceed with the appropriate treatment for her pain but I do not feel comfortable giving IV narcotics for her pain right now since we don't even have labs to compare. She is offered IVF, medications for her nausea, and IV Benadryl to help her relax. She tells me she just took Tylenol at 1230, so we decided to hold that. She initially agreed to this plan of care but then stated to the nurse that she will just return in the am to see someone different. I did discuss this with my attending, Dr. Mcclure, as well as the ED pharmacist, who agreed with the plan of careand not giving narcotics at this time. [AR] ED Course User Index [AR] Rhea Gr, ESTEBAN Clinical Impressions as of 06/15/23 1403 Abdominal pain, epigastric Nausea and vomiting, unspecified vomiting type Diarrhea, unspecified type - Medical Decision Making Lila Mcnally is a 37 yrs old female presents today for Patient presents with: Abdominal Pain Ms. Mcnally is a 37 y.o. female patient with PMH of anxiety, depression, fibromyalgia, GERD, HTN, nicotine dependence, and pancreatitis, who presents to the emergency department with complaints of epigastric, upper abdominal pain, nausea, vomiting and diarrhea. Symptoms began approx 5 days ago and she states they have progressively worsened. She reports she is currently 8 weeks gestation and she attempted to see her OBGYN today, but cannot be seen until 06/24/2023 and was told to come to the ER. Initially, the patient states that she has chronic pancreatitis and she states that sometimes, her lipase does not show her acute pancreatitis. She states that she has tried Tylenol at home but no relief. She reports she was told that I can have pain medications even though I am . She deniesfever/chills. She endorses multiple episodes of vomiting and unable to hold food down. She states the diarrhea started today. Denies blood in her stool or emesis. She denies any vaginal bleeding or abnormal discharge. She also denies any lower abdominal pain or pelvic pain. She denies dysuria. Patient states she is leaving AMA as she is not happy with our plan of care at this time. She states we are doing nothing to treat her pain and she knows she has chronic pancreatitis. I explained to the patient that we have to be cautious with pain medications since she is 8 weeks and we aren't sure what we are treating at this time. I attempted to explain to the patient that once we know what we are treating we can proceed with the appropriate treatment for her pain but I do not feel comfortable giving IV narcotics for her pain right now since we don't even have labs to compare. Sheis offered IVF, medications for her nausea, and IV Benadryl but declines. She tells me she just took Tylenol at 1230, so we decided to hold that. She initially agreed to this plan of care but then stated to the nurse that she will just return in the am to see someone different. I did discuss this with my attending, Dr. Mcclure, as well as the ED pharmacist, who agreed with the plan of care and not giving narcotics at this time. She was provided with education on the risks of harm to her fetus with inappropriate medication and treatments. Based on her history and physical exam, my differential diagnosis included gastroenteritis, related nausea, volume depletion, pancreatitis, electrolyte derangement. Ruling out the most morbid conditions drove my clinical assessment. In order to fully explore differential these tests and treatments were ordered. Orders Placed This Encounter CBC w/diff CMP Magnesium Lipase Lactic acid, venous hCG, quantitative, Drug abuse screen Urinalysis with reflex microscopic AND reflex culture (IF UTI SUSPECTED) Urinalysis with reflex microscopic (Culture NOT Included) Urine Gunter Panel EKG now - STAT (adult) Insert peripheral IV Medications lactated Ringer's infusion 1,000 mL (has no administration in time range) ondansetron (Zofran) injection 4 mg (has no administration in time range) diphenhydrAMINE (Benadryl) injection 25 mg (has no administration in time range) acetaminophen (Tylenol) tablet 1,000 mg (has no administration in time range) famotidine PF (Pepcid) injection 20 mg (has no administration in time range) Old records for this patient were reviewed and found to be pertinent. Records review indicates thatpatient has been seen in the ER recently multiple occasions for similar complaints. It should be noted that her chronic conditions includes abdominal pain, which currently is not at goal therapy. This complicates her clinical picture because it may be exacerbating symptoms. I considered the utility of obtaining labs including CBC, CMP, HCG, UA, but decided to forgo this after shared decision making with the patient/family because the patient refuses and is leaving AMA. EKG review was conducted and reveals that EKG today was similar to previous, and therefore patient was not further worked up from a cardiologic standpoint. She left AMA Patient refuses labs I had an interactive discussion with ED attending and ED pharmacist Based on work up today patient did not require consult with any service Ultimately, this patient was Left as a PATIENT DIRECTED DISCHARGE (PDD) Abdominal pain, epigastric, nausea and vomiting, diarrhea. The patient was informed and counseled of risks of leaving the department as a patient directed discharge with aforementioned diagnoses. Patient was able to comprehend risks and still wished to leave despite clinician's recommendations to stay. At the time of leaving patient was clinically sober enough to understand ramifications ofdecision, patient fully alert and oriented and not lacking capacity to make this decision. There are no outpatient Patient Instructions on file for this admission. ED Prescriptions None Disposition Patient Directed Discharge Sign Off Checklist Clinical Impression: Complete ED Disposition: Complete - Rhea Gr APRN 06/15/23 1403 Cosigned by Chad Mcclure MD at 06/17/2023 9:29 AM EDT Associated attestation - Chad Mcclure MD - 06/17/2023 9:29 AM EDT I attest to being involved in more than half the total time in patient care. * ED Triage Notes - Carlton Sr RN - 06/15/2023 11:13 AM EDT Pt complains of abdominal pain with NVD since last week. Pt is 8 weeks . documented in this encounter Plan of Treatment Not on file documented as of this encounter Procedures Procedure Name Priority Date/Time Associated Diagnosis Comments ECG ADULT STAT 06/15/2023 1:25 PM EDT documented in this encounter Results * EKG now - STAT (adult) (06/15/2023 1:25 PM EDT) EKG DIAGNOSIS CLASS Borderline Abnormal MUSE ECG Ventricular Rate 91 BPM MUSE ECG Atrial Rate 91 BPM MUSE ECG PA Interval 130 ms MUSE ECG QRSD Interval 76 ms MUSE ECG QT Interval 358 ms MUSE ECG QTC Interval 440 ms MUSE ECG P [place] 26 degrees MUSE ECG R [place] 24 degrees MUSE ECG T Wave [place] 16 degrees MUSE ECG Diagnosis Normal sinus rhythm MUSE ECG Diagnosis Low voltage QRS MUSE ECG Diagnosis Borderline ECG MUSE ECG Diagnosis Confirmed by Jono Melgoza ([id number]) on 06/15/2023 2:01:20 PM MUSE ECG 06/15/2023 1:25 PM EDT 06/15/2023 2:01 PM EDT us Rhea Gr APRN ECG ORDERABLES Final Res ult MUSE ECG documented in this encounter Visit Diagnoses Diagnosis Abdominal pain, epigastric- Primary Nausea and vomiting, unspecified vomiting type Diarrhea, unspecified type documented in this encounter Active and Recently Administered Medications Times are shown in EDT. Scheduled Medication Order 06/13/2023 06/14/2023 06/15/2023 acetaminophen (Tylenol) tablet 1,000 mg 1,000 mg, Oral, Once, 1 dose, On Thu06/15/23 at 1315, STAT 1315 (Canceled Entry - Provider: Automatic Discharge Provider - Comment: Automatically canceled at discontinue of medication order) diphenhydrAMINE (Benadryl) injection 25 mg 25 mg, Intravenous, Once, 1 dose, On Thu06/15/23 at 1315, STAT 1315 (Canceled Entry - Provider: Automatic Discharge Provider - Comment: Automatically canceled at discontinue of medication order) famotidine PF (Pepcid) injection 20 mg 20 mg, Intravenous, Once, 1 dose, On Thu06/15/23 at 1315, STAT 1315 (Canceled Entry - Provider: Automatic Discharge Provider - Comment: Automatically canceled at discontinue of medication order) lactated Ringer's infusion 1,000 mL 1,000 mL, Intravenous, Once (Bolus), 1 dose, On Thu06/15/23 at 1315, STAT 1315 (Canceled Entry - Provider: Automatic Discharge Provider - Comment: Automatically canceled at discontinue of medication order) ondansetron (Zofran) injection 4 mg 4 mg, Intravenous, Once, 1 dose, On 06/15/23 at 1315, STAT 1315 (Canceled Entry - Provider: Automatic Discharge Provider - Comment: Automatically canceled at discontinue of medication order) documented in this encounter Additional Health Concerns Assessment Noted Time A fall risk assessment has been complete d for the patient 11/21/2020 2:30 PM EDT A Body Mass Index follow-up plan has been documented for the patient 04/14/2023 2:24 PM EST documented as of this encounter Care Teams Kiln Burner Relationship Specialty Start Date End Date Citlali Marquez, [place] [id number] PCP - General Family Medicine 03/26/23 10/19/23 documented as of this encounter
--- OUTSIDE RECORDS SUMMARY | 2024-02-03 15:11 | XMS_ITS | Encounter Summary ---
Author Organization [facility] Address [address] [place] [address] Care Team Providers Care Hide Sorter Name Role Phone Jimmy Citlali Macias APRN Primary Care Provider [phone] Encounter Details Date Type Department Care Team ([facility] st Contact Info) Description 10/07/2023 Orders Only External Location [address] [place] [address] Provider, External Social History Tobacco Use Types Packs/Day Years [...] slept in a fdc (including now)? 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 or to get [...] Procedure Name Priority Date/Time Associated Diagnosis Comments POC ULTRASOUND 10/07/2023 documented in this encounter Results * POC Imaging (10/07/2023) Anatomical Region Laterality Modality Pelvis Other 10/07/2023 us External Provider IMG POINT OF CARE ULTRASOUND F inal Result documented in this encounter Visit Diagnoses Not on filedocumented in this encounter Additional Health Concerns Assessment Noted Time A fall risk assessment has been complete d for the patient 11/21/2020 2:30 PM EDT A Body Mass Index follow-up plan has been documented for the patient 04/14/2023 2:24 PM EST documented as of this encounter Care Teams Hide Sorter Relationship Specialty Start Date End Date Citlali Marquez APRN [facility] [place] [address] PCP - General Family Medicine 03/26/23 10/19/23 documented as of this encounter
--- OUTSIDE RECORDS SUMMARY | 2024-02-03 15:11 | XMS_ITS | Encounter Summary ---
Author Organization Healthcare Address [address] [place] [address] Care Team Providers Care Receiving Inspector Name Role Phone [place]a lowebozena Macias APRN Primary Care Provider [phone] Reason for Visit * Reason Comments Abdominal Pain Encounter Details Date Type Department Care Team (Late st Contact Info) Description 07/03/2023 9:36 AM EDT - 07/03/2023 12:40 PM EDT Emergency [facility] Emergency Department [address] [place] [address] Abdominal pain, epigastric (Primary Dx); [...] place to sleep or slept in a senior care (including now)? 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-PROPERTY MANAGER) to steady your nerves or to get rid of a hangover? 0 04/11/2023 CAGE Questionnaire Score 0 024 Utilities Answer Date Recorded In the past 12 months has th e GLO, gas, oil, or water company threatened to [...] Sign Reading Time Taken Comments Blood Pressure 146/99 07/03/2023 9:35 AM EDT Pulse 87 07/03/2023 9:35 AM EDT Temperature 36.9 ??C (98.4 ??F) 07/03/2023 9:35 AM ED T Respiratory Rate 18 07/03/2023 9:35 AM EDT Oxygen Saturation 100% 07/03/2023 9:35 AM EDT Inhaled Oxygen Concentration - - Weight 102 kg (225 lb 12 oz) 07/03/2023 9:35 AM EDT Height 165.1 cm (5' 5 ) 07/03/2023 9:35 AM EDT Body Mass Index 37.57 07/03/2023 9:35 AM EDT documented in this [...] this encounter Discharge Instructions * Discharge Instructions* Claudio eHrrera PA - 07/03/2023 12:33 PM EDT Please follow-up with family physician on Thursday. Please return to the emergency room immediately with any worsening of symptoms, any problems or concerns. Please machine operator hop picker your prescription at [facility] for Phenergan upon discharge. documented in this encounter Medications at Time of Discharge pantoprazole (Protonix) 40 MG EC tablet Take 1 tablet (40 mg) by mouth 1 (one) time each day. Do not crush, chew, or split. promethazine (Phenergan) 25 MG tablet Take 1 tablet (25 mg) by mouth every 8 (eight) hours if needed for nausea or vomiting for up to 3 days. 9 tablet 07/03/2023 4 cholecalciferol (Vitamin D3) 125 MCG (5000 [...] symptoms continue 1 each 02/23/2023 4 pancrelipase, Jqi-Ztfs-Xlha, (Creon) [id number] units capsule Take 1 capsule by mouth [...] as of this encounter Miscellaneous Notes * Sherrill Light RN - 07/03/2023 12:37 PM EDT Images from the original note were not included. [id number] Nonspecific Vomiting and Diarrhea (Adult) Vomiting and diarrhea can have many causes, including: ?? Helping your body get rid of harmful substances ?? Gastroenteritis caused by viruses, parasites, bacteria, or toxins ?? Allergy to or side effect of a food or medicine ?? Severe stress or worry (anxiety) ?? Other illnesses ?? It's often hard to pinpoint an exact cause, even with testing. Vomiting and diarrhea often go away within a day or two without problems. But if these symptoms continue, it may lead to too much loss of fluid (dehydration). This can be serious if not treated. Home care Medicines ?? You may use acetaminophen or nonsteroidal anti-inflammatory drugs (NSAID) such as ibuprofen or naproxen to control fever, unless another medicine was prescribed. If you have chronic liver or kidney disease, talk with your healthcare provider before using these medicines. Also talk with your provider if you've had a stomach ulcer or gastrointestinal bleeding. Don't give aspirin to anyone under 18 years of age who is ill with a fever because it may cause a serious illness called Shane syndromethat may result in severe disease or even . Don't use NSAID medicines if you are already taking one for another condition (like arthritis) or are on aspirin (such as for heart disease or after astroke) ?? Hpiy-lmx-rkunjks medicines for diarrhea, nausea, and vomiting are generally OK unless you have bleeding, fever, or severe abdominal pain. General care ?? If symptoms are severe, rest at home for the next 24 hours, or until you are feeling better. ?? Washing your hands with soap and clean, running water, or using alcohol-based hand wireless cellular technician is the best way to stop the spread of infection. Wash your hands after touching anyone who is sick. ?? Wash your hands after using the toilet and before meals. Clean the toilet after each use. ?? Dry your hands with a single-use disposable towel ?? Caffeine, tobacco, and alcohol can make the diarrhea, cramping, and pain worse. Remember, caffeine not only is in coffee, but also is in chocolate, some energy drinks, some soft drinks, and teas. Diet ?? Water and clear liquids are important so you don't get dehydrated. Drink a small amount at a time but frequently. Don't guzzle down the drinks. That may increase your nausea, make cramping worse, and cause the drinks to come back up. ?? Sports drinks may also help if you are healthy and not too dehydrated. But, they have too much sugar and not enough electrolytes and can sometimes make things worse. Also, don't drink beverages that are too acidic, like orange juice and grape juice. ?? If you are very dehydrated, products called oral rehydration solutions are available at most grocery stores and pharmacies. Food ?? Don't force yourself to eat, especially if you have cramps, diarrhea, or vomiting. Eat just a little at a time, and then wait a few minutes before you try to eat more. ?? Don't eat fatty, greasy, spicy, or fried foods. ?? Don't eat dairy products if you have diarrhea. They can make it worse. During the first 24 hours (the first full day), follow the diet below: ?? Beverages: Oral rehydration solutions, sports drinks, soft drinks without caffeine, mineral water, and decaffeinated tea and coffee ?? Soups: Clear broth, consomm??, and bouillon ?? Desserts: Plain gelatin, ice pops, and fruit juice bars During the next 24 hours (the second day), you may add the following to the above if you are better. If not, continue what you did the first day: ?? Hot cereal, plain toast, bread, rolls, crackers ?? Plain noodles, rice, mashed potatoes, chicken noodle or rice soup ?? Unsweetened canned fruit (avoid pineapple), bananas ?? Limit fat intake to less than 15 grams per day by avoiding margarine, butter, oils, mayonnaise, sauces, gravies, fried foods, peanut butter, meat, poultry, and fish. ?? Limit fiber. Avoid raw or cooked vegetables, fresh fruits (except bananas) and bran cereals. ?? Limit caffeine and chocolate. No spices or seasonings except salt. During the next 24 hours: ?? Gradually resume a normal diet, as you feel better and your symptoms improve. ?? If at any time your symptoms start getting worse again, go back to clear liquids until you feel better. Food preparation ?? If you have diarrhea, do not prepare food for others. When preparing foods, wash your hands before and after. ?? Wash your hands or use alcohol-based wireless cellular technician after using cutting boards, counter tops, and knives that have been in contact with raw food. ?? Dry your hands with a single-use disposable towel. ?? Keep uncooked meats away from cooked and jrhxr-po-mti foods. Follow-up care Follow up with your healthcare provider, or as advised. Call if you don't get better in the next 2 to 3 days. If a stool (diarrhea) sample was taken, or cultures done, you will be told if they are positive, or if your treatment needs to be changed. You may call as directed for the results. If X-rays were taken, you will be notified of any new findings that may affect your care Call 911 Call 911 if any of these occur: ?? Trouble breathing ?? Chest pain ?? Confusion ?? Severe drowsiness or trouble awakening ?? Fainting or loss of consciousness ?? Rapid heart rate ?? Seizure ?? Stiff neck ?? Severe weakness, dizziness, or lightheadedness When to get medical advice Call your healthcare provider right away if any of these occur: ?? Bloody or black vomit or stools ?? Severe, steady abdominal pain or any abdominal pain that is getting worse ?? Severe headache or stiff neck ?? An inability to hold down even sips of liquids for more than 12 hours ?? Vomiting that lasts more than 24 hours ?? Diarrhea that lasts more than 24 hours ?? Fever of 100.4??F (38.0??C) or higher, or as directed by your healthcare provider ?? Yellowish color to your skin or the whites of your eyes ?? Signs of dehydration, such as dry mouth, little urine (less than every 6 hours), or very dark urine Last Reviewed Date: 2021 ?? [id number] [employer]. All rights reserved. This information is not intended as a substitute for professional medical care. Always follow your healthcare professional's instructions. * ED Provider Notes - Claudio Herrera PA - 07/03/2023 9:19 AM EDT Images from the original note were not included. - HPI Chief Complaint Patient presents with Abdominal Pain Patient is a 37-year-old female presents to the emergency room with reports of having abdominal pain to the epigastric region with nausea and vomiting intermittently for the past 3 days. Patient reports she is also approximately 10 weeks . Patient reports no lower abdominal pain. No vaginalbleeding or vaginal discharge. Patient reports no back pain, flank pain or urinary symptoms. Patient reports no fever chills. Patient reports no blood in stool or in emesis. No black tarry stools. Patient reports no chest pain, no shortness of air, wheezing or stridor. Patient reports no headache, visual changes or tinnitus. Patient reports no numbness/tingling weakness. Patient reports no dizziness or feeling lightheaded. Patient reports no other problems or complaints. 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 by: Patient manager quality used: No Abdominal Pain Pain location: Epigastric Pain quality: sharp and stabbing Pain radiates to: Does not radiate Pain severity: Moderate Onset quality: Gradual Duration: 3 days Timing: Intermittent Progression: Waxing and waning Chronicity: New Relieved by: Nothing Worsened by: Nothing Ineffective treatments: Acetaminophen Associated symptoms: nausea and vomiting Associated symptoms: no chest pain, no chills, no constipation, no cough, no diarrhea, no dysuria, no fatigue, no fever, no flatus, no hematemesis, no hematochezia, no hematuria, no melena, no shortness of breath, no vaginal bleeding and no vaginal discharge Risk factors: obesity No data recorded Patient History Past Medical History: Diagnosis Date Anxiety Arthritis Depression Fibromyalgia Gastric erosions 04/19/2021 GERD (gastroesophageal reflux disease) Hypertension Intentional overdose ([facility]) 12/20/2021 Nicotine dependence Obesity Pancreatitis Past Surgical [...] times a month Immunization History Immunization History: reviewed Allergies: Allergies Allergen Reactions Compazine [Prochlorperazine] Other - please document in the comment field Dystonic rxn treated w/ diphenhydramine Droperidol Other - please document in the comment field Experienced an acute dystonic reaction treated with diphenhydramine Tramadol Rash and Dizziness Patient described previously experiencing panic attacks too. Review of Systems Review of Systems Constitutional: Negative for chills, diaphoresis, fatigue and fever. HENT: Negative for facial swelling, tinnitus, trouble swallowing and voice change. Eyes: Negative for photophobia and visual disturbance. Respiratory: Negative for cough, chest tightness, shortness of breath, wheezing and stridor. Cardiovascular: Negative for chest pain, palpitations and leg swelling. Gastrointestinal: Positive for abdominal pain, nausea and vomiting. Negative for abdominal distention, anal bleeding, blood in stool, constipation, diarrhea, flatus, hematemesis, hematochezia, melenaand rectal pain. Genitourinary: Negative for decreased urine volume, difficulty urinating, dysuria, flank pain, frequency, hematuria, menstrual problem, pelvic pain, urgency, vaginal bleeding, vaginal discharge and vaginal pain. Musculoskeletal: Negative for arthralgias, back pain, myalgias, neck pain and neck stiffness. Skin: Negative for color change and pallor. Neurological: Negative for dizziness, facial asymmetry, weakness, light- headedness and headaches. Psychiatric/Behavioral: Negative for behavioral problems. The patient is not nervous/anxious. Physical Exam ED Triage Vitals [07/03/23 0935] Temp Heart Rate Resp BP 36.9 ??C (98.4 ??F) 87 18 (!) 146/99 SpO2 Temp Source Heart Rate Source Patient Position 100 % Oral -- Sitting BP Location FiO2 (%) Right arm -- Physical Exam Vitals and nursing note reviewed. Constitutional: General: She is not in acute distress. Appearance: She is well-developed. She is not ill-appearing or toxic-appearing. HENT: Head: Normocephalic and atraumatic. Mouth/Throat: Mouth: Mucous membranes are moist. Pharynx: Oropharynx is clear. No pharyngeal swelling or oropharyngeal exudate. Eyes: General: No scleral icterus. Extraocular Movements: Extraocular movements intact. Pupils: Pupils are equal, round, and reactive to light. Cardiovascular: Rate and Rhythm: Normal rate and regular rhythm. Heart sounds: Normal heart sounds. No murmur heard. No gallop. Pulmonary: Effort: Pulmonary effort is normal. No respiratory distress. Breath sounds: Normal breath sounds. No stridor. No wheezing, rhonchi or rales. Abdominal: General: Bowel sounds are normal. There is no distension. Palpations: Abdomen is soft. There is no hepatomegaly or splenomegaly. Tenderness: There is abdominal tenderness in the epigastric area. There is no right CVA tenderness,left CVA tenderness, guarding or rebound. Skin: General: Skin is warm and dry. Capillary Refill: Capillary refill takes less than 2 seconds. Coloration: Skin is not cyanotic, jaundiced, mottled or pale. Findings: No rash. Neurological: General: No focal deficit present. Mental Status: She is alert and oriented to person, place, and time. Psychiatric: Mood and Affect: Mood normal. Behavior: Behavior normal. ED Course & MDM ED Course as of 07/03/23 1232 ThuJuly 03, 2023 1218 Hemoglobin(!): 11.0 [TN] 1218 Hematocrit(!): 33.9 [TN] 1218 RDW(!): 15.9 [TN] 1218 Lactate(!): 2.3 Patient did receive 1000 mL of normal saline with IV. [TN] 1218 hCG, Total Beta(!): 110,582 [TN] 1218 BUN(!): 6 [TN] 1218 Creatinine(!): 0.41 [TN] 1218 Sodium(!): 135 [TN] 1218 CO2(!): 19 [TN] 1218 Total Bilirubin, Plasma(!): <0.2 [TN] ED Course User Index [TN] Claudio Herrera PA Clinical Impressions as of 07/03/23 1232 Abdominal pain, epigastric Nausea and vomiting, unspecified vomiting type - Medical Decision Making Patient is a 37-year-old female presents to the emergency room with reports of having abdominal pain to the epigastric region with nausea and vomiting intermittently for the past 3 days. Patient reports she is also approximately 10 weeks . Patient was given Reglan 5 mg with IV, Benadryl 25 mg with IV, 1000 mL of normal saline. Patient reports that she is taking Tylenol 1000 mg 3 hours prior to arrival to the ED. did discuss with my attending Dr. Donis with recommending a 1 time dose of Dilaudid 0.25 mg. Patient with heart tones with being between 145 and 150 with fluctuating. Patient with lactate completed with being 2.3. Patient did receive 1000 mL of normal saline. Patient with remainder of the labs completed with being nonactionable. Patient reports after receiving the medications that she did feel much better. Patient reports the pain has improved. Patient with by mouthchallenge with no nausea or vomiting. Patient was instructed to follow-up with family physician on Thursday. Patient was given explicit return precautions to the ED with patient verbalizing understanding agrees with plan with no further questions. Patient at discharge is nontoxic appearing, afebrile,well appearing, no acute distress at discharge. Did speak with ED pharmacy Drew with recommendingpromethazine is safe for at discharge with a prescription. Amount and/or Complexity of Data Reviewed Labs: ordered. Decision-making details documented in ED Course. Lila Mcnally is a 37 yrs old female presents today for Chief Complaint Patient presents with Abdominal Pain . Additional MDM Differential Diagnoses: Based on her history and physical exam, my differential diagnosis included pancreatitis tinnitus, abdominal pain unknown etiology, gastritis, among others. Ruling out the most morbid conditions drovemy clinical assessment. In order to fully explore differential these tests were ordered. Orders Placed This Encounter Procedures Comprehensive Metabolic Panel, Plasma Lipase, Plasma Lactate, venous Urinalysis with reflex microscopic AND reflex culture (IF UTI SUSPECTED) CBC w/diff Urinalysis with reflex microscopic (Culture NOT Included) Urine Gunter Panel hCG, Total Beta, Quantitative, Plasma Extra Tubes Light Green Top Insert peripheral IV Prior Records Review: External Records records for this patient including A Discharge Summary from April 14 2023 from [facility] were reviewed and found to be non- pertinent. Records review indicates that there are no prior records reviewed today that are pertinent to this case. It should be noted that her chronic conditions includes chronic pancreatitis, which currently is not at goal therapy. This complicates her clinical picture because it may be exacerbating symptoms andincreases the amount and complexity of data to be reviewed. Independent Results Review: I saw and interpreted all lab results on labs ordered on the patient. Specific comments on various labs can be found in ED course. Any labs noted in the ED course without specific explanation can be assumed to be pertinent normal results. Prescription Medication Management in ED and Reassessment: Medications metoclopramide (Reglan) injection 5 mg (5 mg Intravenous Given 07/03/23 1027) diphenhydrAMINE (Benadryl) injection 25 mg (25 mg Intravenous Given 07/03/23 1027) sodium chloride 0.9 % infusion 1,000 mL (1,000 mL Intravenous New Bag 07/03/23 1025) HYDROmorphone (Dilaudid) injection 0.25 mg (0.25 mg Intravenous Given 07/03/23 1156) Patient reevaluated after treatments listed above provided and condition improved with medications given. With medications listed above, after receiving the medication we did continue to monitor the patient for potential complications including, allergic reaction. Patient did not experience listed complications. I discussed with the patient/family the value of prescribing promethazine and we, through shared decision making, decided [...] provided are as follows: Discharge Instructions Please follow-up with family physician on Thursday. Please return to the emergency room immediately with any worsening of symptoms, any problems or concerns. Please machine operator hop picker your prescription at [facility] for Phenergan upon discharge. Disposition Discharge Follow-Ups: Call Citlali Marquez APRN (Family Medicine) in 3 days (07/06/2023) ED Prescriptions None Sign Off Checklist Clinical Impression: Complete ED Disposition: Complete - Claudio Herrera PA 07/03/23 1236 Cosigned by Carter Donis MD at 07/04/2023 7:13 AM EDT Associated attestation - Carter Donis MD - 07/04/2023 7:13 AM EDT The patient was seen only by Advanced Practice Provider (AJAY), and care was reviewed with me. * ED Triage Notes - Carlton Sr RN - 07/03/2023 9:19 AM EDT Pt complains of mid abdominal pain with NV that began 3 days ago. Pt is 10 weeks . documented in this encounter Plan of Treatment Not on file documented as of this encounter Procedures Procedure Name Priority Date/Time Associated Diagnosis Comments URINALYSIS WITH REFLEX MICROSCOPIC STAT 07/03/2023 12:01 PM EDT URINE GUNTER PANEL STAT 07/03/2023 12:0 1 PM EDT URINALYSIS WITH REFLEX MICROSCOPIC STAT 07/03/2023 12:01 PM EDT EXTRA TUBE LIGHT GREEN TOP Routine 07/03/2023 11:19 AM EDT LACTATE, VENOUS STAT 07/03/2023 11:19 AM EDT EXTRA TUBES Routine 07/03/2023 11:19 AM EDT CBC WITH AUTO DIFFERENTIAL STAT 07/03/2023 11:19 AM EDT HCG, QUANTITATIVE STAT 07/03/2023 10: 28 AM EDT LIPASE, PLASMA STAT 07/03/2023 10:28 AM EDT COMPREHENSIVE METABOLIC PANEL, PLASMA STAT 07/03/2023 10:28 AM EDT documented in this encounter Results * Urine Gunter Panel (07/03/2023 12:01 PM EDT) Extra Reflex urine culture not indicated 07/03/2023 9:01 PM EDT [facility] Comment: Previously prelim verified as Specimen evaluation in progress on 07/03/2023 at 1401 EDT. Previously prelim verified as Specimen evaluation in progress on 07/03/2023 at 1501 EDT. Previously prelim verified as Specimen evaluation in progress on 07/03/2023 at 1601 EDT. Previously prelim verified as Specimen evaluation in progress on 07/03/2023 at 1701 EDT. Previously prelim verified as Specimen evaluation in progress on 07/03/2023 at 1801 EDT. Previously prelim verified as Specimen evaluation in progress on 07/03/2023 at 1901 EDT. Previously prelim verified as Specimen evaluation in progress on 07/03/2023 at 2001 EDT. Urine Urine specimen obtained by clean catch procedure / Unknown Non-blood Collection / Unknown 07/03/2023 12:01 PM EDT 07/03/2023 12:13 PM EDT us Claudio NAJERA LAB URINE ORDERABLES Final Resul t [facility] [address] [place] [address] * Urinalysis with reflex microscopic (Culture NOT Included) (07/03/2023 12:01 PM EDT) Color, Urine Yellow LAB URINALYSIS - AUTOMATED METHOD 07/03/2023 12:16 PM EDT [facility] Clarity, Urine Clear LAB URINALYSIS - AUTOMATED METHOD 07/03/2023 12:16 PM EDT [facility] Spec [place], Urine 1.011 <=1.005 to >=1.030 LAB URINALYSIS - AUTOMATED METHOD 07/03/2023 12:16 PM EDT [facility] pH, Urine 7.5 4.5 to 8 LAB URINALYSIS - AUTOMATED METHOD 07/03/2023 12:16 PM EDT [facility] Protein, Urine Negative Negative mg/dL LAB URINALYSIS - AUTOMATED METHOD 07/03/2023 12:16 PM EDT [facility] Glucose, Urine Negative Negative mg/dL LAB URINALYSIS - AUTOMATED METHOD 07/03/2023 12:16 PM EDT [facility] Ketones, Urine Negative Negative mg/dL LAB URINALYSIS - AUTOMATED METHOD 07/03/2023 12:16 PM EDT [facility] Blood, Urine Negative Negative LAB URINALYSIS - AUTOMATED METHOD 07/03/2023 12:16 PM EDT [facility] Bilirubin, Urine Negative Negative LAB URINALYSIS - AUTOMATED METHOD 07/03/2023 12:16 PM EDT [facility] Urobilinogen, Urine 0.2 0.2 to 1.0 mg/dL LAB URINALYSIS - AUTOMATED METHOD 07/03/2023 12:16 PM EDT [facility] Leukocytes, Urine Negative Negative LAB URINALYSIS - AUTOMATED METHOD 07/03/2023 12:16 PM EDT [facility] Nitrite, Urine Negative Negative LAB URINALYSIS - AUTOMATED METHOD 07/03/2023 12:16 PM EDT [facility] Urine Urine specimen obtained by clean catch procedure / Unknown Non-blood Collection / Unknown 07/03/2023 12:01 PM EDT 07/03/2023 12:13 PM EDT Claudiomike Herrera [place] LAB URINE ORDERABLES Final Resul t Performing Organization Address City/[facility]/ZIP Co de Phone Number [facility] [address] [place] [address] * Light Green Top (07/03/2023 11:19 AM EDT) Pathologist [facility] Extra Hold for add-ons 07/03/2023 2:01 PM EDT [facility] Comment:Auto resulted. Blood Venous blood specimen / Unknown Venipuncture / Unknown 07/03/2023 11:19 AM EDT 07/03/2023 11:24 AM EDT Claudiomike NAJERA LAB BLOOD ORDERABLES Final Resul t Performing Organization Address City/[facility]/ZIP Co de Phone Number [facility] [address] [place] [address] * (ABNORMAL) CBC w/diff (07/03/2023 11:19 AM EDT) Pathologist [facility] WBC Count 6.94 3.70 - 10.30 10*3/uL LAB HEMATOLOGY METHOD 07/03/2023 12:15 PM EDT [facility] RBC Count 3.96 3.90 - 5.20 10*6/uL LAB HEMATOLOGY METHOD 07/03/2023 12:15 PM EDT [facility] HGB 11.0(L) 11.2 - 15.7 g/dL LAB HEMATOLOGY METHOD 07/03/2023 12:15 PM EDT [facility] HCT 33.9(L) 34.0 - 45.0 % LAB HEMATOLOGY METHOD 07/03/2023 12:15 PM EDT [facility] Platelet Count 209 155 - 369 10*3/uL LAB HEMATOLOGY METHOD 07/03/2023 12:15 PM EDT [facility] MCV 86 79 - 98 fL LAB HEMATOLOGY METHOD 07/03/2023 12:15 PM EDT [facility] MCH 27.8 26.0 - 32.0 pg LAB HEMATOLOGY METHOD 07/03/2023 12:15 PM EDT [facility] MCHC 32.4 30.7 - 35.5 g/dL LAB HEMATOLOGY METHOD 07/03/2023 12:15 PM EDT [facility] RDW 15.9(H) 11.5 - 14.5 % LAB HEMATOLOGY METHOD 07/03/2023 12:15 PM EDT [facility] MPV 9.7 8.8 - 12.5 fL LAB HEMATOLOGY METHOD 07/03/2023 12:15 PM EDT [facility] nRBC 0.0 <=0.0 per 100 WBCs LAB HEMATOLOGY METHOD 07/03/2023 12:15 PM EDT [facility] Differential Type Automated LAB HEMATOLOGY METHOD 07/03/2023 12:15 PM EDT [facility] Comment:These results have b een appended to a previously final verified report. Neutrophils % 60.0 % LAB HEMATOLOGY METHOD 07/03/2023 12:15 PM EDT [facility] Comment:These results have b een appended to a previously final verified report. Lymphocytes % 31.0 % LAB HEMATOLOGY METHOD 07/03/2023 12:15 PM EDT [facility] Comment:These results have b een appended to a previously final verified report. Monocytes % 7.0 % LAB HEMATOLOGY METHOD 07/03/2023 12:15 PM EDT [facility] Comment:These results have b een appended to a previously final verified report. Eosinophils % 0.0 % LAB HEMATOLOGY METHOD 07/03/2023 12:15 PM EDT [facility] Comment:These results have b een appended to a previously final verified report. Basophils % 1.0 % LAB HEMATOLOGY METHOD 07/03/2023 12:15 PM EDT [facility] Comment:These results have b een appended to a previously final verified report. Immature Granulocytes % 1.0 % LAB HEMATOLOGY METHOD 07/03/2023 12:15 PM EDT [facility] Comment:These results have b een appended to a previously final verified report. Neutrophils Absolute 4.22 1.60 - 6.10 10*3/uL LAB HEMATOLOGY METHOD 07/03/2023 12:15 PM EDT [facility] Comment:These results have b een appended to a previously final verified report. Lymphocytes Absolute 2.14 1.20 - 3.90 10*3/uL LAB HEMATOLOGY METHOD 07/03/2023 12:15 PM EDT [facility] Comment:These results have b een appended to a previously final verified report. Monocytes Absolute 0.46 0.30 - 0.90 10*3/uL LAB HEMATOLOGY METHOD 07/03/2023 12:15 PM EDT [facility] Comment:These results have b een appended to a previously final verified report. Eosinophils Absolute 0.02 0.00 - 0.50 10*3/uL LAB HEMATOLOGY METHOD 07/03/2023 12:15 PM EDT [facility] Comment:These results have b een appended to a previously final verified report. Basophils Absolute 0.04 0.00 - 0.10 10*3/uL LAB HEMATOLOGY METHOD 07/03/2023 12:15 PM EDT [facility] Comment:These results have b een appended to a previously final verified report. Immature Granulocytes Absolute 0.06 0.00 - 0.06 10*3/uL LAB HEMATOLOGY METHOD 07/03/2023 12:15 PM EDT [facility] Comment:These results have b een appended to a previously final verified report. Blood Venous blood specimen / Unknown Venipuncture / Unknown 07/03/2023 11:19 AM EDT 07/03/2023 11:24 AM EDT [facility] - 07/03/2023 12:15 PM EDT Therapeutic decision making should be based on absolute values, rather than percentages. us Claudio Herrera [place] LAB BLOOD ORDERABLES Edited Resu lt - Final Performing Organization Address [facility] de Phone Number [facility] [address] [place] [address] * (ABNORMAL) Lactate, venous (07/03/2023 11:19 AM EDT) Lactate, Venous, Whole Blood 2.3(H) 0.5 - 2.2 mmol/L LAB HEMATOLOGY METHOD 07/03/2023 11:28 AM EDT [facility] Blood Venous blood specimen / Unknown Venipuncture / Unknown 07/03/2023 11:19 AM EDT 07/03/2023 11:24 AM EDT Claudio Lantigua Javier [place] LAB BLOOD ORDERABLES Final Resul t Performing Organization Address [facility] de Phone Number [facility] [address] [place] [address] * (ABNORMAL) hCG, Total Beta, Quantitative, Plasma (07/03/2023 10:28 AM EDT) hCG, Total Beta 110,582(H) <5 mIU/mL 07/03/2023 11:30 AM EDT [facility] Blood Venous blood specimen / Unknown Venipuncture / Unknown 07/03/2023 10:28 AM EDT 07/03/2023 10:36 AM EDT [facility] - 07/03/2023 11:30 AM EDT Patients: ? Normal Range Premenopausal [...] methods or kits cannot be used interchangeably. Claudio Herrera [place] LAB BLOOD ORDERABLES Final Resul t Performing Organization Address [facility] Co de Phone Number [facility] [address] [place] [address] * Lipase, Plasma (07/03/2023 10:28 AM EDT) Lipase, Plasma 27 19 - 63 U/L 07/03/2023 11:11 AM EDT [facility] Blood Venous blood specimen / Unknown Venipuncture / Unknown 07/03/2023 10:28 AM EDT 07/03/2023 10:36 AM EDT [facility] [employer] [place] LAB BLOOD ORDERABLES Final Resul t Performing Organization Address [facility] de Phone Number [facility] [address] [place] [address] * (ABNORMAL) Comprehensive Metabolic Panel, Plasma (07/03/2023 10:28 AM EDT) Glucose, Plasma 97 74 - 99 mg/dL 07/03/2023 11:11 AM EDT [facility] BUN, Plasma 6(L) 7 - 21 mg/dL 07/03/2023 11:11 AM EDT [facility] Creatinine, Plasma 0.41(L) 0.60 - 1.10 mg/dL 07/03/2023 11:11 AM EDT [facility] BUN/Creatinine Ratio 15 07/03/2023 11:11 AM EDT [facility] Sodium, Plasma 135(L) 136 - 145 mmol/L 07/03/2023 11:11 AM EDT [facility] Potassium, Plasma 4.7 3.7 - 4.8 mmol/L 07/03/2023 11:11 AM EDT [facility] Chloride, Plasma 103 97 - 107 mmol/L 07/03/2023 11:11 AM EDT [facility] CO2, Plasma 19(L) 22 - 29 mmol/L 07/03/2023 11:11 AM EDT [facility] Anion Gap 13 6 - 16 mmol/L 07/03/2023 11:11 AM EDT [facility] Total Calcium, Plasma 8.9 8.9 - 10.2 mg/dL 07/03/2023 11:11 AM EDT [facility] Total Protein 6.5 6.3 - 7.9 g/dL 07/03/2023 11:11 AM EDT [facility] Albumin, Plasma 3.8 3.5 - 5.2 g/dL 07/03/2023 11:11 AM EDT [facility] AST, Plasma 21 10 - 35 U/L 07/03/2023 11:11 AM EDT [facility] ALT, Plasma 31 10 - 35 U/L 07/03/2023 11:11 AM EDT [facility] Alkaline Phosphatase, Plasma 87 35 - 104 U/L 07/03/2023 11:11 AM EDT [facility] Total Bilirubin, Plasma <0.2(L) 0.2 - 1.1 mg/dL 07/03/2023 11:11 AM EDT [facility] eGFRcr 131.0 mL/min/1.7 3m*2 07/03/2023 11:11 AM EDT [facility] Comment:Reported eGFRcr in m L/min/1.73m2 is based the CKD-EPI 2020 equation that does not use a race coefficient. Blood Venous blood specimen / Unknown Venipuncture / Unknown 07/03/2023 10:28 AM EDT 07/03/2023 10:36 AM EDT Claudio NAJERA LAB BLOOD ORDERABLES Final Resul t [facility] [address] [place] [address] documented in this encounter Visit Diagnoses Diagnosis Abdominal pain, epigastric- Primary Nausea and vomiting, unspecified vomiting type documented in this encounter Administered Medications Inactive Administered Medications - up to 3 most recent administrations Medication Order MAR Action Action Date Dose Rate Site diphenhydrAMINE (Benadryl) injection 25 mg 25 mg, Intravenous, Once, 1 dose, On Thu07/03/23 at 0950, STAT Given 07/03/2023 10:27 AM EDT 25 mg HYDROmorphone (Dilaudid) injection 0.25 mg 0.25 mg, Intravenous, Once, 1 dose, On Thu07/03/23 at 1100, STAT Given 07/03/2023 11:56 AM EDT 0.25 mg metoclopramide (Reglan) injection 5 mg 5 mg, Intravenous, Once, 1 dose, On Thu07/03/23 at 0950, STAT Given 07/03/2023 10:27 AM EDT 5 mg sodium chloride 0.9 % infusion 1,000 mL 1,000 mL, Intravenous, Once, 1 dose, On Thu07/03/23 at 0950, STAT New Bag 07/03/2023 10:25 AM EDT 1,000 mL documented in this encounter Active and Recently Administered Medications Times are shown in EDT. Scheduled Medication Order 07/01/2023 07/02/2023 07/03/2023 diphenhydrAMINE (Benadryl) injection 25 mg (COMPLETED) 25 mg, Intravenous, Once, 1 dose, On Thu07/03/23 at 0950, STAT 1027 (Given - Provid er: Sherrill Angel RN) HYDROmorphone (Dilaudid) injection 0.25 mg (COMPLETED) 0.25 mg, Intravenous, Once, 1 dose, On Thu07/03/23 at 1100, STAT 1156 (Given - Provid er: Sherrill Angel RN) metoclopramide (Reglan) injection 5 mg (COMPLETED) 5 mg, Intravenous, Once, 1 dose, On Thu07/03/23 at 0950, STAT 1027 (Given - Provid er: Sherrill Angel RN) sodium chloride 0.9 % infusion 1,000 mL (COMPLETED) 1,000 mL, Intravenous, Once, 1 dose, On Thu07/03/23 at 0950, STAT 1025 (New Bag - Prov ider: Sherrill Angel RN)[id number] (Stopped - Provider: Sherrill Angel RN) documented in this encounter Additional Health Concerns Assessment Noted Time A fall risk assessment has been complete d for the patient 11/21/2020 2:30 PM EDT A Body Mass Index follow-up plan has been documented for the patient 04/14/2023 2:24 PM EST documented as of this encounter Care Teams Receiving Inspector Relationship Specialty Start Date End Date Citlali Marquez, EMBALMER APPRENTICE [address] [place] [phone] PCP - General Family Medicine 03/26/23 10/19/23 documented as of this encounter
--- OUTSIDE RECORDS SUMMARY | 2024-02-03 15:11 | XMS_ITS | Encounter Summary ---
Author Organization [facility] Address [address] [place] [address] Care Team Providers Care Grounds Maintenance Manager Name Role Phone JimmyCitlali lowe Gilberto ORELLANA Primary Care Provider [phone] Encounter Details Date Type Department Care Team (Latest Contact Info) Description 10/07/2023 Travel Social History Tobacco Use Types Packs/Day [...] place to sleep or slept in a correction (including now)? 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) to steady your nerves or to get [...] documented as of this encounter Care Teams Grounds Maintenance Manager Relationship Specialty Start Date End Date Citlali Marquez APRN [facility] [place] [phone] PCP - General Family Medicine 03/26/23 10/19/23 documented as of this encounter
--- OUTSIDE RECORDS SUMMARY | 2024-02-03 15:11 | XMS_ITS | Encounter Summary ---
Author Organization Healthcare Address [address] [place] [address] Care Team Providers Care Bottom Bleacher Name Role Phone SmithersCitlali lowe Gilberto ORELLANA Primary Care Provider [phone] Reason for Visit * Reason Comments Abdominal Pain Vomiting Abd pain/emesis, hx of chronic pancreatitis Encounter Details Date Type Department Care Team ([facility] Contact Info) Description 06/14/2023 1:39 AM EDT - 06/14/2023 4:28 AM EDT Emergency [facility] Emergency Department [address] [place] [address] Meet Turcios MD [address] [place] [address] Epigastric pain (Primary Dx) Discharge Disposition: Home [...] drink first t caleb in the morning (EYE-FILING WRITER) to steady your nerves or to get [...] Reading Time Taken Comments Blood Pressure 131/82 06/14/2023 4:27 AM EDT Pulse 88 06/14/2023 4:27 AM EDT Temperature 36 ??C (96.8 ??F) 06/14/2023 4:27 AM EDT Respiratory Rate 16 06/14/2023 4:27 AM EDT Oxygen Saturation 98% 06/14/2023 4:27 AM EDT Inhaled Oxygen Concentration - - Weight 97.1 kg (214 lb) 06/14/2023 2:53 AM EDT Height 165.1 cm (5' 5 ) 06/14/2023 2:53 AM EDT Body Mass Index 35.61 06/14/2023 2:53 AM EDT documented in this encounter Functional [...] Date Author No 04/14/2023 2:20 PM Laureen Carrillo, RN documented in this encounter Discharge Instructions * Discharge Instructions* Jacinto Garcia DO - 06/14/2023 4:15 AM EDT Take Reglan as previously prescribed. Follow up with OB as previously scheduled. Return to the Emergency Department for worsening symptoms or further concerns. documented in this encounter Medications at [...] symptoms continue 1 each 02/23/2023 4 pancrelipase, [id number]-[id number], (Creon) [id number] units capsule Take 1 capsule by mouth [...] Miscellaneous Notes * ED Provider Notes - Jacinto Garcia DO - 06/14/2023 12:53 AM EDT Images from the original note were not included. - HPI Chief Complaint Patient presents with Abdominal Pain Vomiting Abd pain/emesis, hx of chronic pancreatitis This is a 37-year-old female with history of chronic pancreatitis currently who presents with upper abdominal pain for the past few days. Seen in the emergency department will times for the same. Including visit just prior to this visit. So that she did not get any pain medications so she left and did not want any labs drawn. Per note, did receive prescription for Reglan. Still vomiting.Denies any lower abdominal pain. No vaginal bleeding. [place] Coma Scale Score: 15 Patient History Past Medical History: Diagnosis Date Anxiety Arthritis Depression Fibromyalgia Gastric erosions 04/19/2021 GERD (gastroesophageal reflux disease) Hypertension Intentional overdose ([facility]) 12/20/2021 Nicotine dependence Obesity Pancreatitis [...] too. Review of Systems Review of Systems All other systems reviewed and are negative. Physical Exam ED Triage Vitals [06/14/23 0058] Temp Heart Rate Resp BP 36.5 ??C (97.7 ??F) 107 19 129/81 SpO2 Temp Source Heart Rate Source Patient Position 98 % Oral Monitor Sitting BP Location FiO2 (%) Right arm -- Physical Exam Vitals reviewed. Constitutional: General: She is in acute distress. Appearance: She is well-developed. She is not toxic-appearing. HENT: Head: Normocephalic and atraumatic. Mouth/Throat: Mouth: Mucous membranes are moist. Pharynx: Oropharynx is clear. Cardiovascular: Rate and Rhythm: Regular rhythm. Tachycardia present. Pulmonary: Effort: Pulmonary effort is normal. Breath sounds: Normal breath sounds. Abdominal: General: Abdomen is flat. Palpations: Abdomen is soft. Tenderness: There is abdominal tenderness in the epigastric area. There is no guarding or rebound. Skin: General: Skin is warm and dry. Capillary Refill: Capillary refill takes less than 2 seconds. Neurological: General: No focal deficit present. Mental Status: She is alert. ED Course & MDM Clinical Impressions as of 06/14/23714 Epigastric pain - Medical Decision Making This patient was seen and staffed with ED attending, Dr. Turcios. In summary, this is a 37 y.o. female presenting for evaluation of Abdominal Pain and Vomiting (Abd pain/emesis, hx of chronic pancreatitis). Patient arrived hemodynamically stable. Exam notable for above. Based on her history and phy sical exam, my differential diagnosis included chronic pancreatitis, abscess, GE. Ruling out the most morbid conditions drove my clinical assessment. Therapy included IVFs, IV morphine, PO unisom andB6. It should be noted that her chronic conditions includes chronic pancreatitis, which currently is not at goal therapy. This complicates her clinical picture because it may be exacerbating symptoms. I reviewed prior records including her most recent ED note which documented prescription for Reglan. On reassessment, patient feeling better. In bed. Given IV fluids. Ordered Unisom and B6 however patient was asleep and did not get these medications. Not having any vomiting. Tolerating by mouth. Beta hCG 62,000. Lactate 1.2. No leukocytosis. Lipase 36. Appropriate for discharge at this time. Encouraged follow-up with her OB for recheck. Strict ED return precautions provided. ED Prescriptions None Discharge Instructions Take Reglan as previously prescribed. Follow up with OB as previously scheduled. Return to the Emergency Department for worsening symptoms or further concerns. Disposition Discharge AVS (Printed 06/14/2023) Sign Off Checklist Clinical Impression: Complete ED Disposition: Complete - Jacinto Garcia DO Resident 06/14/23 0715 Cosigned by Meet Turcios MD at 06/15/2023 8:58 AM EDT Associated attestation - Meet Turcios MD - 06/15/2023 8:58 AM EDT I saw and evaluated the patient with the resident/fellow. I discussed the case with the resident/fellow and agree with the findings and plan as documented. * ED Triage Notes - Rafiq Mason RN - 06/14/2023 12:53 AM EDT Onset Thursday of severe abdominal pain that has progressively worsened, states hx of chronic pancreatitis, was seen @ [facility] and d/c'd tonight but returned due to worsening pain. documented in this encounter Plan of Treatment Not on file documented as of this encounter Procedures Procedure Name Priority Date/Time Associated Diagnosis Comments EXTRA TUBE GOLD TOP Routine 06/14/2023 2 :15 AM EDT LACTATE, VENOUS STAT 06/14/2023 2:15 AM EDT EXTRA TUBES Routine 06/14/2023 2:15 AM EDT CBC WITH AUTO DIFFERENTIAL STAT 06/14/2023 2:15 AM EDT HCG, QUANTITATIVE STAT Add-on 06/14/2023 2:1 5 AM EDT LIPASE, PLASMA STAT 06/14/2023 2:15 AM EDT COMPREHENSIVE METABOLIC PANEL, PLASMA STAT 06/14/2023 2:15 AM EDT documented in this encounter Results * (ABNORMAL) hCG, quantitative, (06/14/2023 2:15 AM EDT) hCG, Total Beta 62,978(H) <5 mIU/mL 06/14/2023 3:09 AM EDT [facility] Blood Venous blood specimen / Unknown Venipuncture / Unknown 06/14/2023 2:15 AM EDT 06/14/2023 2:21 AM EDT Narrative [facility] - 06/14/2023 3:09 AM EDT Patients: ? Normal Range Premenopausal [...] or kits cannot be used interchangeably. us Meet Turcios MD LAB BLOOD ORDERABLES Final Result Performing Organization Address City/[facility] Co de Phone Number [facility] [address] [place] [address] * Gold Top (06/14/2023 2:15 AM EDT) Pathologist [facility] Extra Hold for add-ons 06/14/2023 5:01 AM EDT [facility] Comment:Auto resulted. Blood Venous blood specimen / Unknown 06/14/2023 2:15 AM EDT 06/14/2023 2:22 AM EDT us Lisa Carlson MD LAB BLOOD ORDERABLES Final R esult Performing Organization Address [facility] Co de Phone Number [facility] [address] [place] [address] * Lipase (06/14/2023 2:15 AM EDT) Lipase, Plasma 36 19 - 63 U/L 06/14/2023 3:09 AM EDT [facility] Blood Venous blood specimen / Unknown Venipuncture / Unknown 06/14/2023 2:15 AM EDT 06/14/2023 2:21 AM EDT Meet Turcios MD LAB BLOOD ORDERABLES Final Result [facility] [address] [place] [address] * Lactate, venous (06/14/2023 2:15 AM EDT) Pathologist [facility] Lactate, Venous, Whole Blood 1.2 0.5 - 2.2 mmol/L LAB HEMATOLOGY METHOD 06/14/2023 2:28 AM EDT [facility] Blood Venous blood specimen / Unknown Venipuncture / Unknown 06/14/2023 2:15 AM EDT 06/14/2023 2:27 AM EDT Meet Turcios MD LAB BLOOD ORDERABLES Final Result [facility] [address] [place] [address] * (ABNORMAL) CMP (06/14/2023 2:15 AM EDT) Glucose, Plasma 87 74 - 99 mg/dL 06/14/2023 3:09 AM EDT [facility] BUN, Plasma 11 7 - 21 mg/dL 06/14/2023 3:09 AM EDT [facility] Creatinine, Plasma 0.51(L) 0.60 - 1.10 mg/dL 06/14/2023 3:09 AM EDT [facility] BUN/Creatinine Ratio 22 06/14/2023 3:09 AM EDT [facility] Sodium, Plasma 135(L) 136 - 145 mmol/L 06/14/2023 3:09 AM EDT [facility] Potassium, Plasma 4.0 3.7 - 4.8 mmol/L 06/14/2023 3:09 AM EDT [facility] Chloride, Plasma 101 97 - 107 mmol/L 06/14/2023 3:09 AM EDT [facility] CO2, Plasma 23 22 - 29 mmol/L 06/14/2023 3:09 AM EDT [facility] Anion Gap 11 6 - 16 mmol/L 06/14/2023 3:09 AM EDT [facility] Total Calcium, Plasma 9.0 8.9 - 10.2 mg/dL 06/14/2023 3:09 AM EDT [facility] Total Protein 6.6 6.3 - 7.9 g/dL 06/14/2023 3:09 AM EDT [facility] Albumin, Plasma 4.0 3.5 - 5.2 g/dL 06/14/2023 3:09 AM EDT [facility] AST, Plasma 16 10 - 35 U/L 06/14/2023 3:09 AM EDT [facility] ALT, Plasma 28 10 - 35 U/L 06/14/2023 3:09 AM EDT [facility] Alkaline Phosphatase, Plasma 91 35 - 104 U/L 06/14/2023 3:09 AM EDT [facility] Total Bilirubin, Plasma <0.2(L) 0.2 - 1.1 mg/dL 06/14/2023 3:09 AM EDT [facility] eGFRcr 124.2 mL/min/1.7 3m*2 06/14/2023 3:09 AM EDT [facility] Comment:Reported eGFRcr in m L/min/1.73m2 is based the CKD-EPI 2020 equation that does not use a race coefficient. Blood Venous blood specimen / Unknown Venipuncture / Unknown 06/14/2023 2:15 AM EDT 06/14/2023 2:21 AM EDT us Meet Turcios MD LAB BLOOD ORDERABLES Final Result [facility] [address] [place] [address] * (ABNORMAL) CBC and Differential (06/14/2023 2:15 AM EDT) WBC Count 9.80 3.70 - 10.30 10*3/uL LAB HEMATOLOGY METHOD 06/14/2023 2:24 AM EDT [facility] RBC Count 4.09 3.90 - 5.20 10*6/uL LAB HEMATOLOGY METHOD 06/14/2023 2:24 AM EDT [facility] HGB 11.2 11.2 - 15.7 g/dL LAB HEMATOLOGY METHOD 06/14/2023 2:24 AM EDT [facility] HCT 33.9(L) 34.0 - 45.0 % LAB HEMATOLOGY METHOD 06/14/2023 2:24 AM EDT [facility] Platelet Count 272 155 - 369 10*3/uL LAB HEMATOLOGY METHOD 06/14/2023 2:24 AM EDT [facility] MCV 83 79 - 98 fL LAB HEMATOLOGY METHOD 06/14/2023 2:24 AM EDT [facility] MCH 27.4 26.0 - 32.0 pg LAB HEMATOLOGY METHOD 06/14/2023 2:24 AM EDT [facility] MCHC 33.0 30.7 - 35.5 g/dL LAB HEMATOLOGY METHOD 06/14/2023 2:24 AM EDT [facility] RDW 15.9(H) 11.5 - 14.5 % LAB HEMATOLOGY METHOD 06/14/2023 2:24 AM EDT [facility] MPV 9.6 8.8 - 12.5 fL LAB HEMATOLOGY METHOD 06/14/2023 2:24 AM EDT [facility] nRBC 0.0 <=0.0 per 100 WBCs LAB HEMATOLOGY METHOD 06/14/2023 2:24 AM EDT [facility] Differential Type Automated LAB HEMATOLOGY METHOD 06/14/2023 2:24 AM EDT [facility] Neutrophils % 66.0 % LAB HEMATOLOGY METHOD 06/14/2023 2:24 AM EDT [facility] Lymphocytes % 26.0 % LAB HEMATOLOGY METHOD 06/14/2023 2:24 AM EDT [facility] Monocytes % 6.0 % LAB HEMATOLOGY METHOD 06/14/2023 2:24 AM EDT [facility] Eosinophils % 1.0 % LAB HEMATOLOGY METHOD 06/14/2023 2:24 AM EDT [facility] Basophils % 0.0 % LAB HEMATOLOGY METHOD 06/14/2023 2:24 AM EDT [facility] Immature Granulocytes % 1.0 % LAB HEMATOLOGY METHOD 06/14/2023 2:24 AM EDT [facility] Neutrophils Absolute 6.56(H) 1.60 - 6.10 10*3/uL LAB HEMATOLOGY METHOD 06/14/2023 2:24 AM EDT [facility] Lymphocytes Absolute 2.51 1.20 - 3.90 10*3/uL LAB HEMATOLOGY METHOD 06/14/2023 2:24 AM EDT [facility] Monocytes Absolute 0.58 0.30 - 0.90 10*3/uL LAB HEMATOLOGY METHOD 06/14/2023 2:24 AM EDT [facility] Eosinophils Absolute 0.07 0.00 - 0.50 10*3/uL LAB HEMATOLOGY METHOD 06/14/2023 2:24 AM EDT [facility] Basophils Absolute 0.03 0.00 - 0.10 10*3/uL LAB HEMATOLOGY METHOD 06/14/2023 2:24 AM EDT [facility] Immature Granulocytes Absolute 0.05 0.00 - 0.06 10*3/uL LAB HEMATOLOGY METHOD 06/14/2023 2:24 AM EDT [facility] Blood Venous blood specimen / Unknown Venipuncture / Unknown 06/14/2023 2:15 AM EDT 06/14/2023 2:21 AM EDT Narrative [facility] - 06/14/2023 2:24 AM EDT Therapeutic decision making should be based on absolute values, rather than percentages. Meet Turcios MD LAB BLOOD ORDERABLES Final Result [facility] [address] [place] [id number] documented in this encounter Visit Diagnoses Diagnosis Epigastric pain- Primary Abdominal pain, epigastric documented in this encounter Administered Medications Inactive Administered Medications - up to 3 most recent administrations Medication Order MAR Action Action Date Dose Rate Site lactated Ringer's infusion 1,000 mL 1,000 mL, Intravenous, Once, 1 dose, On 06/14/23 at 0225, STAT New Bag 06/14/2023 2:27 AM EDT 1,000 mL pyridoxine (Vitamin B-6) tablet 25 mg 25 mg, Oral, Daily, First dose on 06/14/23 at 0900, Until Discontinued, Routine documented in this encounter Active and Recently Administered Medications Times are shown in EDT. Scheduled Medication Order 06/12/2023 06/13/2023 06/14/2023 doxylamine (Unisom) tablet 12.5 mg 12.5 mg, Oral, Once, 1 dose, On 06/14/23 at 0225, STAT 0306 (Return to [facility] net - Provider: Jovan Marin) lactated Ringer's infusion 1,000 mL (COMPLETED) 1,000 mL, Intravenous, Once, 1 dose, On 06/14/23 at 0225, STAT 0227 (New Bag - Prov ider: Jovan Marin)[id number] (Stopped - Provider: Jovan Marin) pyridoxine (Vitamin B-6) tablet 25 mg 25 mg, Oral, Daily, First dose on 06/14/23 at 0900, Until Discontinued, Routine documented in this encounter Additional Health Concerns Assessment Noted Time A fall risk assessment has been complete d for the patient 11/21/2020 2:30 PM EDT A Body Mass Index follow-up plan has been documented for the patient 04/14/2023 2:24 PM EST documented as of this encounter Care Teams Bottom Bleacher Relationship Specialty Start Date End Date Citlali Marquez, COUNTER CLERK [address] [place] [address] PCP - General Family Medicine 03/26/23 10/19/23 documented as of this encounter
--- OUTSIDE RECORDS SUMMARY | 2024-02-03 15:11 | XMS_ITS | Encounter Summary ---
Author Organization [facility] Address [address] [place] [address] Care Team Providers Care Heating And Ventilating Drafter Name Role Phone JimmyCitlali lowe Gilberto ORELLANA Primary Care Provider [phone] Encounter Details Date Type Department Care Team (Latest Contact Info) Description 06/15/2023 Travel Social History Tobacco Use Types Packs/Day [...] slept in a halfway (including now)? 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-BAND LINING BANDER) to steady your nerves or to get [...] documented as of this encounter Care Teams Heating And Ventilating Drafter Relationship Specialty Start Date End Date Citlali Marquez APRN [facility] [place] [id number] PCP - General Family Medicine 03/26/23 10/19/23 documented as of this encounter
--- OUTSIDE RECORDS SUMMARY | 2024-02-03 15:11 | XMS_ITS | Encounter Summary ---
Author Organization Healthcare Address [address] [place] [address] Care Team Providers Care Moss Bleacher Name Role Phone Citlali Marquez ESTEBAN Primary Care Provider [phone] Reason for Visit * Reason Comments Abdominal Pain Encounter Details Date Type Department Care Team (Late st Contact Info) Description 10/07/2023 8:41 AM EDT - 10/07/2023 11:20 AM EDT Emergency [facility] Emergency Department [address] [place] [address] Bostno Choudhary MD [address] [place] [address] Acute pancreatitis, unspecified complication status, unspecified pancreatitis type (Primary Dx) Discharge Disposition: Home or Self [...] in a care home (including now)? No 04/21/2023 CAGE ASSESSMENT [...] drink first t caleb in the morning (EYE-LOCOMOTIVE FIRER) to steady your nerves or to get [...] Sign Reading Time Taken Comments Blood Pressure 152/98 10/07/2023 11:19 AM EDT Pulse 95 10/07/2023 11:19 AM EDT Temperature 36.8 ??C (98.3 ??F) 10/07/2023 8:39 AM ED T Respiratory Rate 16 10/07/2023 11:1 9 AM EDT Oxygen Saturation 100% 10/07/2023 11: 19 AM EDT Inhaled Oxygen Concentration - - Weight 94.2 kg (207 lb 10.8 oz) 10/07/2023 8:37 AM EDT Height - - Body Mass Index 34.56 07/03/2023 9:35 AM EDT documented in this [...] this encounter Discharge Instructions * Discharge Instructions* Boston Choudhary MD - 10/07/2023 11:09 AM EDT I have prescribed pain medication as well as nausea medication for what appears to be based on yourlabs a flare of your pancreatitis. Please follow-up with your GI doctor as we discussed. Please make sure you stay hydrated and return with any new or worsening symptoms. documented in this encounter Medications at Time of Discharge pantoprazole (Protonix) 40 MG EC tablet Take 1 tablet (40 mg) by mouth 1 (one) time each day. Do not crush, chew, or split. oxyCODONE (Roxicodone) 5 MG immediate release tablet Take 1 tablet (5 mg) by mouth every 6 (six) hours if needed (pain) for up to 3 days. 10 tablet 10/07/2023 4 cholecalciferol (Vitamin D3) 125 MCG (5000 [...] nausea or vomiting. 12 tablet 10/07/2023 4 pancrelipase, Dxk-Auji-Gsab, (Creon) 6000-09580 units capsule Take 1 capsule by mouth [...] Miscellaneous Notes * ED Provider Notes - Boston Choudhary MD - 10/07/2023 8:22 AM EDT Chief Complaint: Abdominal Pain HPI: Lila Mcnally is a 37 y.o. female presenting for evaluation of Abdominal Pain. Pt c/o increasing abdominal pain since Thursday. On Thursday evening pt began having nausea and vomiting. Pt statestaking an old oxycodone that provided enough relief to sleep through the night. Pt woke this morning with increasing epigastric pain radiating into LUQ and around into left back. Pt has a hx of pancreatitis and endorses this feel similar. Pt denies bloody stools, fever, chills, diarrhea, shortness of breath, chest pain, urinary symptoms. Past Medical History: Past medical history was reviewed. Past Medical History: Diagnosis Date Anxiety Arthritis Depression Fibromyalgia Gastric erosions 04/19/2021 GERD (gastroesophageal reflux disease) Hypertension Intentional overdose ([facility] 12/20/2021 Nicotine dependence Obesity Pancreatitis Social History: Social History was reviewed. Tobacco Use Smoking status: Every Day Current [...] Marijuana Comment: a few times a month ROS: As reviewed in HPI. ED Triage Vitals: ED Triage Vitals [10/07/23 0839] Temp Heart Rate Resp BP 36.8 ??C (98.3 ??F) 103 16 (!) 160/103 SpO2 Temp Source Heart Rate Source Patient Position 100 % Oral -- -- BP Location FiO2 (%) -- -- Physical Exam: Physical Exam Vitals and nursing note reviewed. [...] is abdominal tenderness in the epigastric area. Musculoskeletal: General: No swelling. Cervical back: Neck supple. Skin: General: Skin is warm and dry. Capillary Refill: Capillary refill takes less than 2 seconds. Neurological: Mental Status: She is alert. Psychiatric: Mood and Affect: Mood normal. ED Course & MDM Medical Decision Making MDM: 37 y.o. female with history and exam per above presenting for evaluation of Abdominal Pain. Diagnoses considered include pancreatitis, PUD, patient is status post cholecystectomy. The patient's abdominal exam is benign and not suggestive acute surgical pathology at this time, there is insufficient evidence based on history, physical exam, consequently, there is insufficient evidence to warrant abdominal imaging at this time. Orders Placed This Encounter Procedures CBC w/diff CMP Lipase hCG qualitative Hepatitis C Antibody - ED W/Reflex to HCV Quant PCR Labs were independently interpreted by me. They are significant for lipase 194, creatinine within normal limits, no leukocytosis. ED Medication Administration from 10/07/2023 0822 to 10/11/2023 2102 Date/Time Order Dose Route Action 10/07/2023 0932 EDT lactated Ringer's infusion 1,000 mL 1,000 mL Intravenous New Bag 10/07/2023 0933 EDT ondansetron (Zofran) injection 4 mg 4 mg Intravenous Given 10/07/2023 0937 EDT morphine PF 4 mg 4 mg Intravenous Given 10/07/2023 1031 EDT morphine PF 4 mg 4 mg Intravenous Given 10/07/2023 1112 EDT lactated Ringer's infusion 1,000 mL 0 mL Intravenous Stopped The patient had satisfactory improvement of pain, was able to tolerate PO intake, was amenable to discharge, upon repeat evaluation. Of the differential diagnoses initially considered, my clinical impression at this time is thought to be most consistent with acute flare of chronic pancreatitis. I reassessed the patient again and discussed my clinical impression, findings, and recommendations for management. I answered all questions and asked if the patient had any additional concerns or requests. At this time, the evidence for any other entities in the differential is insufficient to warrant any further testing or ED observation. This was explained to the patient. The patient was advised that persistent or worsening symptoms require further evaluation. The patient was informed that any pending tests, as well as test results, imaging results, and any incidental findings, are to be reviewed online or through the office of medical records, and followed up with PCP. The following providers were documented as being assigned to this patient during this visit: Sincerely, Boston Choudhary MD Date/Time: 10/07/2023/9:04 AM Entered by Alexandria Horton, acting as scribe for Boston Mckinney MD. Scribe Attestation: This note was dictated to me, Alexandria Horton, acting as a scribe for Boston Mckinney MD. Attending Attestation: The documentation was recorded by Alexandria Horton acting as scribe in my presence at the time of the encounter and accurately reflects the service I personally performed. Discharge Medication List as of 10/07/2023 11:15 AM START taking these medications Details famotidine (Pepcid) 20 MG tablet Take 1 tablet (20 mg) by mouth 2 (two) times a day for 14 days., Starting Thu10/07/2023, Until Thu10/21/2023, Normal ondansetron ODT (Zofran-ODT) 4 MG disintegrating tablet Take 1 tablet (4 mg) by mouth every 6 (six)hours if needed for nausea or vomiting., Starting Thu10/07/2023, Normal oxyCODONE (Roxicodone) 5 MG immediate release tablet Take 1 tablet (5 mg) by mouth every 6 (six) hours if needed (pain) for up to 3 days., Starting Thu10/07/2023, Until 10/10/2023 at 2359, Normal You have no referrals or appointment requests from this visit. Boston Choudhary MD 10/11/232102 * ED Triage Notes - Andrew Gonzalez RN - 10/07/2023 8:22 AM EDT Pt with c/o abd pain that radiates to her left flank with vomiting since Thursday. Pt does have an appointment on Thursday. documented in this encounter Plan of Treatment Not on file documented as of this encounter Procedures Procedure Name Priority Date/Time Associated Diagnosis Comments HEPATITIS C ANTIBODY - ED W/REFLEX TO HCV QUANT PCR STAT 10/07/2023 9:32 AM EDT CBC WITH AUTO DIFFERENTIAL STAT 10/07/2023 9:32 AM EDT TEST QUALITATIVE PLASMA STAT 10/07/2023 9:32 AM EDT LIPASE, PLASMA STAT 10/07/2023 9:32 AM EDT COMPREHENSIVE METABOLIC PANEL, PLASMA STAT 10/07/2023 9:32 AM EDT documented in this encounter Results * Hepatitis C Antibody - ED W/Reflex to HCV Quant PCR (10/07/2023 9:32 AM EDT) Hepatitis C Antibody Negative Negative 10/07/2023 10:12 AM EDT [facility] Blood Venous blood specimen / Unknown Venipuncture / Unknown 10/07/2023 9:32 AM EDT 10/07/2023 9:37 AM EDT us Boston Choudhary MD LAB BLOOD ORDERABLES Final Re sult [facility] [address] [place] [id number] * hCG qualitative (10/07/2023 9:32 AM EDT) Test Negative Negative 10/07/2023 10:08 AM EDT [facility] Blood Venous blood specimen / Unknown Venipuncture / Unknown 10/07/2023 9:32 AM EDT 10/07/2023 9:37 AM EDT Narrative [facility] - 10/07/2023 10:08 AM EDT Reference Range: Males and non- females: Negative. us Boston Choudhary MD LAB BLOOD ORDERABLES Final Re sult Performing Organization Address City/[facility]/ZIP Co de Phone Number [facility] [address] [place] [address] * (ABNORMAL) Lipase (10/07/2023 9:32 AM EDT) Lipase, Plasma 194(H) 19 - 63 U/L 10/07/2023 10:08 AM EDT [facility] Blood Venous blood specimen / Unknown Venipuncture / Unknown 10/07/2023 9:32 AM EDT 10/07/2023 9:37 AM EDT us Boston Choudhary MD LAB BLOOD ORDERABLES Final Re sult Performing Organization Address [facility] Co de Phone Number [facility] [address] [place] [address] * (ABNORMAL) CMP (10/07/2023 9:32 AM EDT) Glucose, Plasma 106(H) 74 - 99 mg/dL 10/07/2023 10:08 AM EDT [facility] BUN, Plasma 8 7 - 21 mg/dL 10/07/2023 10:08 AM EDT [facility] Creatinine, Plasma 0.58(L) 0.60 - 1.10 mg/dL 10/07/2023 10:08 AM EDT [facility] BUN/Creatinine Ratio 14 10/07/2023 10:08 AM EDT [facility] Sodium, Plasma 139 136 - 145 mmol/L 10/07/2023 10:08 AM EDT [facility] Potassium, Plasma 5.0(H) 3.7 - 4.8 mmol/L 10/07/2023 10:08 AM EDT [facility] Chloride, Plasma 107 97 - 107 mmol/L 10/07/2023 10:08 AM EDT [facility] CO2, Plasma 23 22 - 29 mmol/L 10/07/2023 10:08 AM EDT [facility] Anion Gap 9 6 - 16 mmol/L 10/07/2023 10:08 AM EDT [facility] Total Calcium, Plasma 9.1 8.9 - 10.2 mg/dL 10/07/2023 10:08 AM EDT [facility] Total Protein 6.4 6.3 - 7.9 g/dL 10/07/2023 10:08 AM EDT [facility] Albumin, Plasma 4.0 3.5 - 5.2 g/dL 10/07/2023 10:08 AM EDT [facility] AST, Plasma 12 10 - 35 U/L 10/07/2023 10:08 AM EDT [facility] ALT, Plasma 14 10 - 35 U/L 10/07/2023 10:08 AM EDT [facility] Alkaline Phosphatase, Plasma 82 35 - 104 U/L 10/07/2023 10:08 AM EDT [facility] Total Bilirubin, Plasma 0.2 0.2 - 1.1 mg/dL 10/07/2023 10:08 AM EDT [facility] eGFRcr 120.5 mL/min/1.7 3m*2 10/07/2023 10:08 AM EDT [facility] Comment:Reported eGFRcr in m L/min/1.73m2 is based the CKD-EPI 2020 equation that does not use a race coefficient. Blood Venous blood specimen / Unknown Venipuncture / Unknown 10/07/2023 9:32 AM EDT 10/07/2023 9:37 AM EDT Boston Choudhary MD LAB BLOOD ORDERABLES Final Re sult [facility] [address] [place] [address] * (ABNORMAL) CBC w/diff (10/07/2023 9:32 AM EDT) WBC Count 6.73 3.70 - 10.30 10*3/uL LAB HEMATOLOGY METHOD 10/07/2023 9:43 AM EDT [facility] RBC Count 4.46 3.90 - 5.20 10*6/uL LAB HEMATOLOGY METHOD 10/07/2023 9:43 AM EDT [facility] HGB 11.1(L) 11.2 - 15.7 g/dL LAB HEMATOLOGY METHOD 10/07/2023 9:43 AM EDT [facility] HCT 35.6 34.0 - 45.0 % LAB HEMATOLOGY METHOD 10/07/2023 9:43 AM EDT [facility] Platelet Count 248 155 - 369 10*3/uL LAB HEMATOLOGY METHOD 10/07/2023 9:43 AM EDT [facility] MCV 80 79 - 98 fL LAB HEMATOLOGY METHOD 10/07/2023 9:43 AM EDT [facility] MCH 24.9(L) 26.0 - 32.0 pg LAB HEMATOLOGY METHOD 10/07/2023 9:43 AM EDT [facility] MCHC 31.2 30.7 - 35.5 g/dL LAB HEMATOLOGY METHOD 10/07/2023 9:43 AM EDT [facility] RDW 16.2(H) 11.5 - 14.5 % LAB HEMATOLOGY METHOD 10/07/2023 9:43 AM EDT [facility] MPV 9.2 8.8 - 12.5 fL LAB HEMATOLOGY METHOD 10/07/2023 9:43 AM EDT [facility] nRBC 0.0 <=0.0 per 100 WBCs LAB HEMATOLOGY METHOD 10/07/2023 9:43 AM EDT [facility] Differential Type Automated LAB HEMATOLOGY METHOD 10/07/2023 9:43 AM EDT [facility] Neutrophils % 71.0 % LAB HEMATOLOGY METHOD 10/07/2023 9:43 AM EDT [facility] Lymphocytes % 21.0 % LAB HEMATOLOGY METHOD 10/07/2023 9:43 AM EDT [facility] Monocytes % 6.0 % LAB HEMATOLOGY METHOD 10/07/2023 9:43 AM EDT [facility] Eosinophils % 0.0 % LAB HEMATOLOGY METHOD 10/07/2023 9:43 AM EDT [facility] Basophils % 1.0 % LAB HEMATOLOGY METHOD 10/07/2023 9:43 AM EDT [facility] Immature Granulocytes % 1.0 % LAB HEMATOLOGY METHOD 10/07/2023 9:43 AM EDT [facility] Neutrophils Absolute 4.75 1.60 - 6.10 10*3/uL LAB HEMATOLOGY METHOD 10/07/2023 9:43 AM EDT [facility] Lymphocytes Absolute 1.43 1.20 - 3.90 10*3/uL LAB HEMATOLOGY METHOD 10/07/2023 9:43 AM EDT [facility] Monocytes Absolute 0.43 0.30 - 0.90 10*3/uL LAB HEMATOLOGY METHOD 10/07/2023 9:43 AM EDT [facility] Eosinophils Absolute 0.03 0.00 - 0.50 10*3/uL LAB HEMATOLOGY METHOD 10/07/2023 9:43 AM EDT [facility] Basophils Absolute 0.04 0.00 - 0.10 10*3/uL LAB HEMATOLOGY METHOD 10/07/2023 9:43 AM EDT [facility] Immature Granulocytes Absolute 0.05 0.00 - 0.06 10*3/uL LAB HEMATOLOGY METHOD 10/07/2023 9:43 AM EDT [facility] Blood Venous blood specimen / Unknown Venipuncture / Unknown 10/07/2023 9:32 AM EDT 10/07/2023 9:37 AM EDT Narrative [facility] - 10/07/2023 9:43 AM EDT Therapeutic decision making should be based on absolute values, rather than percentages. us Boston Choudhary MD LAB BLOOD ORDERABLES Final Re sult [facility] [address] [place] [id number] documented in this encounter Visit Diagnoses Diagnosis Acute pancreatitis, unspecified complication status, unspecified pancreatitis type- Primary documented in this encounter Administered Medications Inactive Administered Medications - up to 3 most recent administrations Medication Order MAR Action Action Date Dose Rate Site lactated Ringer's infusion 1,000 mL 1,000 mL, Intravenous, Once, 1 dose, On Thu10/07/23 at 0900, STAT New Bag 10/07/2023 9:32 AM EDT 1,000 mL morphine PF 4 mg 4 mg, Intravenous, Every 3 hours PRN, Starting on Thu10/07/23 at 0856, Until Thu10/07/23 at 1320, STAT, severe pain Given 10/07/2023 9:37 AM EDT 4 mg morphine PF 4 mg 4 mg, Intravenous, Once, 1 dose, On Thu10/07/23 at 1020, STAT Given 10/07/2023 10:31 AM EDT 4 mg ondansetron (Zofran) injection 4 mg 4 mg, Intravenous, Every 6 hours PRN, Starting on Thu10/07/23 at 0856, Until Thu10/07/23 at 1320, STAT, nausea, vomiting Given 10/07/2023 9:33 AM EDT 4 mg documented in this encounter Active and Recently Administered Medications Times are shown in EDT. Scheduled Medication Order 10/05/2023 10/06/2023 10/07/2023 lactated Ringer's infusion 1,000 mL (COMPLETED) 1,000 mL, Intravenous, Once, 1 dose, On Thu10/07/23 at 0900, STAT 0932 (New Bag - Prov ider: Gela Joseph RN)1112 (Stopped - Provider: Shanae Napier RN) morphine PF 4 mg (COMPLETED) 4 mg, Intravenous, Once, 1 dose, On Thu10/07/23 at 1020, STAT 1031 (Given - Provid er: Shanae Napier RN) PRN Medication Order 10/05/2023 10/06/2023 10/07/2023 morphine PF 4 mg 4 mg, Intravenous, Every 3 hours PRN, Starting on Thu10/07/23 at 0856, Until Thu10/07/23 at 1320, STAT, severe pain 0937 (Given - Provid er: Shanae Napier RN) ondansetron (Zofran) injection 4 mg 4 mg, Intravenous, Every 6 hours PRN, Starting on Thu10/07/23 at 0856, Until Thu10/07/23 at 1320, STAT, nausea, vomiting 0933 (Given - Provid er: Gela Joseph RN) documented in this encounter Additional Health Concerns Assessment Noted Time A fall risk assessment has been complete d for the patient 11/21/2020 2:30 PM EDT A Body Mass Index follow-up plan has been documented for the patient 04/14/2023 2:24 PM EST documented as of this encounter Care Teams Moss Bleacher Relationship Specialty Start Date End Date Citlali Marquez, ESTEBAN [address] [place] [id number] PCP - General Family Medicine 03/26/23 10/19/23 documented as of this encounter
--- OUTSIDE RECORDS SUMMARY | 2024-02-03 15:11 | XMS_ITS | Encounter Summary ---
Author Organization [facility] Address [address] [place] [address] Care Team Providers Care Perinatal Educator Name Role Phone JimmyCitlali lowe Gilberto ORELLANA Primary Care Provider [phone] Encounter Details Date Type Department Care Team (Latest Contact Info) Description 07/03/2023 Travel Social History Tobacco Use Types Packs/Day [...] slept in a longterm (including now)? 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-LEAN SIX SIGMA BLACK BELT) to steady your nerves or to get [...] documented as of this encounter Care Teams Perinatal Educator Relationship Specialty Start Date End Date Citlali Marquez APRN [facility] [place] [id number] PCP - General Family Medicine 03/26/23 10/19/23 documented as of this encounter
--- OUTSIDE RECORDS SUMMARY | 2024-02-03 15:12 | XMS_ITS | Encounter Summary ---
Author Organization Healthcare Address [address] [place] [address] Care Team Providers Care Worm Farmer Name Role Phone Citlali Marquez APRN Primary Care Provider [phone] Dipika Lorenzana LPN Unavailable Unavaila ble Reason for Visit * Reason Comments Abdominal Pain Encounter Details Date Type Department Care Team (Late st Contact Info) Description 04/22/2023 11:02 AM EST - 04/22/2023 2:40 PM EST Emergency [facility] S Emergency Department [address] [place] [address] George Martinez MD [address] [place] [address] LUQ pain (Primary Dx) Discharge Disposition: Home or [...] place to sleep or slept in a prison (including now)? 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) to steady your nerves or to get [...] Sign Reading Time Taken Comments Blood Pressure 139/96 04/22/2023 2:39 PM EST Pulse 100 04/22/2023 2:39 PM EST Temperature 36.4 ??C (97.6 ??F) 04/22/2023 2:39 PM ES T Respiratory Rate 18 04/22/2023 2:39 PM EST Oxygen Saturation 96% 04/22/2023 2:39 PM EST Inhaled Oxygen Concentration - - Weight 102 kg (224 lb 13.9 oz) 04/22/2023 1:00 P M EST Height 165.1 cm (5' 5 ) 04/22/2023 1:00 PM EST Body Mass Index 37.42 04/22/2023 1:00 PM EST documented in this encounter Functional Status * [...] Entry Date Author No 04/14/2023 2:20 PM EST Laureen Castaneda RN documented in this encounter Discharge Instructions * Discharge Instructions* George Martinez MD - 04/22/2023 2:24 PM EST At this time as discussed we have given you a short course of pain medication to go home with. Please use any previously prescribed Zofran as needed for any continuing symptoms. If symptoms worsen and you have any concerns your always welcome to return for repeat evaluation. documented in this encounter Medications at Time of Discharge pantoprazole (Protonix) 40 MG EC tablet Take 1 tablet (40 mg) by mouth 1 (one) time each day. Do not crush, chew, or split. acetaminophen (Tylenol) 500 MG tablet Take 2 tablets (1,000 mg) by mouth every 6 (six) hours for 10 days. 80 tablet 04/14/2023 4 ondansetron ODT (Zofran-ODT) 4 MG disintegrating tablet Take 1 tablet (4 mg) by mouth every 6 (six) hours if needed for nausea. 12 tablet 04/02/2023 4 oxyCODONE-acetaminop hen (Percocet) 5-325 MG tablet Take 1 tablet by mouth every 6 (six) hours if needed for severe pain (pian) for up to 3 days. 8 tablet 04/22/2023 4 cholecalciferol (Vitamin D3) 125 MCG (5000 UT) capsule Take 1 capsule (5,000 Units) by mouth 1 (one) time each day. 4 cyanocobalamin 1000 MCG tablet Take 1 tablet (1,000 mcg) by mouth 1 (one) time each day. 4 DULoxetine (Cymbalta) [address] capsule [...] symptoms continue 1 each 02/23/2023 4 pancrelipase, Aur-Zpvc-Xwbd, (Creon) 6000-36938 units capsule Take 1 capsule by mouth 3 (three) times a day with meals. 4 pregabalin (Lyrica) 100 MG capsule Take 1 capsule (100 mg) by mouth 3 (three) times a day. 4 promethazine (Phenergan) 25 MG tablet Take 1 tablet (25 mg) by mouth every 6 (six) hours if needed for nausea or vomiting. 4 sucralfate (Carafate) 1 GM/10ML suspension Take 10 mL (1 g) by mouth every 6 (six) hours. 4 documented as of this encounter Miscellaneous Notes * ED Provider Notes - George Martinez MD - 04/22/2023 10:49 AM EST Images from the original note were not included. - HPI Chief Complaint Patient presents with Abdominal Pain Lila Mcnally is a 37 y.o. female with a past medical history significant for fibromyalgia, gastric erosions, HTN, GERD, self-reported chronic pancreatitis, cholecystectomy, ERCP, esophagogastroduodenoscopy who presents today from home to the emergency department with abdominal pain. Pt c/o typical LUQ abdominal pain x3 days that worsened x5 hours. Pt endorses her normal abdominal pain is a throbbing stabbing sensation but in last five hours it just hurts. Also c/o diarrhea and nausea x3 days and one episode of emesis. Since pain has worsened pt endorses being diaphoretic. Was admitted 04/11-04/14 for the same pain. Was discharged with oxycodone 10mg. Reports taking half a pill yesterday. Pt has [facility] appointment scheduled in [place] on 05/05. Reports due to family issues she had to reschedule pain management appointment. Patient denies fever, chills, headache, cough, chest pain, shortness of breath, BLE swelling, abdominal pain, nausea, vomiting, diarrhea, changes to bowel habits, and urinary symptoms. 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 by: Patient home service advisor used: No No data recorded Patient History Past Medical History: Diagnosis Date Anxiety Arthritis Depression Fibromyalgia Gastric erosions 04/19/2021 GERD (gastroesophageal reflux disease) Hypertension Intentional overdose ([facility]) 12/20/2021 Nicotine dependence Obesity [...] Negative for ear pain and sore throat. Eyes: Negative for pain and visual disturbance. Respiratory: Negative for cough and shortness of breath. Cardiovascular: Negative for chest pain and palpitations. Gastrointestinal: Positive for abdominal pain, diarrhea and nausea. Negative for vomiting. Genitourinary: Negative for dysuria and hematuria. Musculoskeletal: Negative for arthralgias and back pain. Skin: Negative for color change and rash. Neurological: Negative for seizures and syncope. All other systems reviewed and are negative. Physical Exam ED Triage Vitals [04/22/23 1101] Temp Heart Rate Resp BP 36.7 ??C (98.1 ??F) (!) 142 18 (!) 151/110 SpO2 Temp Source Heart Rate Source Patient [...] in the left upper quadrant. There is guarding (voluntary). Musculoskeletal: General: No deformity. Cervical back: Normal range of motion and neck supple. Skin: General: Skin is warm and dry. Coloration: Skin is not jaundiced or pale. Neurological: General: No focal deficit present. Mental Status: She is alert and oriented to person, place, and time. ED Course & MDM ED Course as of 04/22/23 1451 Wed Apr 22, 2023 1243 Lipase(!): 104 Mildly elevated compared to baseline in the low 20s. Patient frequently has levels about this high,consistent with mild acute on chronic pancreatic flare possibly [ND] 1244 Magnesium: 2.0 [ND] 1244 Test: Negative [ND] 1244 Glucose(!): 103 [ND] 1244 Creatinine(!): 0.49 [ND] 1244 Chloride: 104 [ND] 1244 Potassium(!): 3.5 Mildly low [ND] 1244 Lactate(!): 2.8 Suggestive of mild dehydration potentially. Will give fluids [ND] 1451 Lipase(!): 104 Consistent with previous [ND] ED Course User Index [ND] George Martinez MD Clinical Impressions as of 04/22/23 1451 LUQ pain - Medical Decision Making Lila Mcnally is a 37 yrs old female presents today for Chief Complaint Patient presents with Abdominal Pain . ED Course Narrative: Patient is a 37-year-old female well known to this emergency room for frequentvisits for upper abdominal pain. Known to have suspected chronic pancreatitis. She presents tearfuland tachycardic and in distress secondary to pain. Considering physician concern for patient abuse of resources we did set boundaries early that patient would only received 2 doses of pain medicationat that time we would discuss whether admission or discharge was appropriate based on her findings.We did get labs which showed a mildly increased lipase compared to normal however evaluating her recent discharge summary it appears as though she fluctuates between levels of around 100 and normal 20s to 30s. She is not suspected to have a severe case of pancreatitis, does not meet criteria to have CT scan considering the great number of CT scans she has had in the past. She is given a dose of morphine and reassessed after each dose receiving a total of 2 doses and has significant improvement.Patient is requesting to be discharged. In order to help facilitate her leaving the hospital and staying home we did give her a few days worth of pain medication as we suspect this flare will pass with time. She is scheduled to meet with pain management at an appointment in the next few weeks and we hope that she will make it to this appointment before she has to return to the hospital. Patient di scharged tolerating by mouth and in significantly decreased pain compared to upon arrival Additional MDM Differential Diagnoses: Based on her history and physical exam, my differential diagnosis included several life threateningconditions including pancreatitis, gastritis, esophagitis. Ruling out the most morbid conditions drove my clinical assessment. In order to fully explore differential these tests were ordered. Orders Placed This Encounter Procedures CBC w/diff CMP Magnesium Lactic acid, venous Lipase hCG qualitative Prior Records Review: Old records for this patient including A Discharge Summary from April 14 2023 from [facility] were reviewed and found to be pertinent. Records review indicates that patient was most recently discharged on this date and at that time had largely just responded to pain medication, no additional imaging was ordered during this visit . It should be noted that her chronic conditions includes pancreatitis, which currently is not at goal [...] be assumed to be pertinent normal results. Reassessment: Medications sodium chloride 0.9 % infusion 1,000 mL (has no administration in time range) morphine PF 4 mg (4 mg Intravenous Given 04/22/23 1204) sodium chloride 0.9 % infusion 1,000 mL (0 mL Intravenous Stopped 04/22/23 1431) ondansetron (Zofran) injection 4 mg (4 mg Intravenous Given 04/22/23 1204) morphine PF 4 mg (4 mg Intravenous Given 04/22/23 1305) ondansetron (Zofran) injection 4 mg (4 mg Intravenous Given 04/22/23 1305) Patient reevaluated after treatments listed above provided and condition improved with medications given. Consults and Discussions with other providers: Disposition: Ultimately, this patient Was discharged Home (Discharge) The encounter diagnosis was LUQ pain. . Patient was counseled on the diagnoses.Discharge medications if any are listed below. Listed medications are thought be either curative for listed diagnoses or will help control ongoing symptoms. Patient is requested to follow up with Patient's primary care provider and Internal Medicine in order to obtain routine follow-up. Instructions on follow up as well as precautions to return to the ER provided verbally by the EDMD, as well as written in patients discharge education packet. Specific instructions provided are as follows: Discharge Instructions At this time as discussed we have given you a short course of pain medication to go home with. Please use any previously prescribed Zofran as needed for any continuing symptoms. If symptoms worsen and you have any concerns your always welcome to return for repeat evaluation. Disposition Discharge AVS (Printed 04/22/2023) Date/Time: 04/22/2023/2:51 PM Entered by Alexandria Horton, acting as scribe for Dr. Baumann att. providers found. Scribe Attestation: This note was dictated to me, Alexandria Horton, acting as a scribe for Dr. Baumann att. providers found. Attending Attestation: The documentation was recorded by Alexandria Horton acting as scribe in my presence at the time of the encounter and accurately reflects the service I personally performed. Last PDMP Review: George Martinez MD on 04/22/2023 2:24 PM ED Prescriptions Medication Sig Dispense Start Date End Date Auth. Provider oxyCODONE-acetaminophen (Percocet) 5-325 MG tablet Take 1 tablet by mouth every 6 (six) hours if needed for severe pain (pian) for up to 3 days. 8 tablet 04/22/2023 04/25/2023 George Martinez MD Discharge Instructions At this time as discussed we have given you a short course of pain medication to go home with. Please use any previously prescribed Zofran as needed for any continuing symptoms. If symptoms worsen and you have any concerns your always welcome to return for repeat evaluation. Disposition Discharge AVS (Printed 04/22/2023) Sign Off Checklist Clinical Impression: Complete ED Disposition: Complete - George Martinez MD 04/22/23 1452 * ED Triage Notes - Andrew [place] RN - 04/22/2023 10:49 AM EST Pt with c/o abd pain that is worse over the last few days, had some vomiting today. documented in this encounter Plan of Treatment Not on file documented as of this encounter Procedures Procedure Name Priority Date/Time Associated Diagnosis Comments CBC WITH AUTO DIFFERENTIAL STAT 04/22/2023 12:00 PM EST TEST QUALITATIVE PLASMA STAT 04/22/2023 12:00 PM EST MAGNESIUM, PLASMA STAT 04/22/2023 12: 00 PM EST LIPASE, PLASMA STAT 04/22/2023 12:00 PM EST COMPREHENSIVE METABOLIC PANEL, PLASMA STAT 04/22/2023 12:00 PM EST LACTATE, VENOUS STAT 04/22/2023 11:44 AM EST documented in this encounter Results * hCG qualitative (04/22/2023 12:00 PM EST) Test Negative Negative 04/22/2023 12:38 PM EST [facility] Blood Venous blood specimen / Unknown Venipuncture / Unknown 04/22/2023 12:00 PM EST 04/22/2023 12:13 PM EST Narrative [facility] - 04/22/2023 12:38 PM EST Reference Range: Males and non- females: Negative. George Martinez MD LAB BLOOD ORDERABLES Final Result Performing Organization Address City/[facility] Co de Phone Number [facility] [address] [place] [address] * (ABNORMAL) Lipase (04/22/2023 12:00 PM EST) Lipase, Plasma 104(H) 19 - 63 U/L 04/22/2023 12:38 PM EST [facility] Blood Venous blood specimen / Unknown Venipuncture / Unknown 04/22/2023 12:00 PM EST 04/22/2023 12:13 PM EST George Martinez MD LAB BLOOD ORDERABLES Final Result [facility] [address] [place] [address] * Magnesium (04/22/2023 12:00 PM EST) Magnesium, Plasma 2.0 1.9 - 2.4 mg/dL 04/22/2023 12:38 PM EST [facility] Blood Venous blood specimen / Unknown Venipuncture / Unknown 04/22/2023 12:00 PM EST 04/22/2023 12:13 PM EST George Martinez MD LAB BLOOD ORDERABLES Final Result [facility] [address] [place] [address] * (ABNORMAL) CMP (04/22/2023 12:00 PM EST) Glucose, Plasma 103(H) 74 - 99 mg/dL 04/22/2023 12:38 PM [facility] BUN, Plasma 8 7 - 21 mg/dL 04/22/2023 12:38 PM [facility] Creatinine, Plasma 0.49(L) 0.60 - 1.10 mg/dL 04/22/2023 12:38 PM [facility] BUN/Creatinine Ratio 16 04/22/2023 12:38 PM [facility] Sodium, Plasma 140 136 - 145 mmol/L 04/22/2023 12:38 PM [facility] Potassium, Plasma 3.5(L) 3.7 - 4.8 mmol/L 04/22/2023 12:38 PM [facility] Chloride, Plasma 104 97 - 107 mmol/L 04/22/2023 12:38 PM [facility] CO2, Plasma 21(L) 22 - 29 mmol/L 04/22/2023 12:38 PM [facility] Anion Gap 15 6 - 16 mmol/L 04/22/2023 12:38 PM [facility] Total Calcium, Plasma 9.7 8.9 - 10.2 mg/dL 04/22/2023 12:38 PM [facility] Total Protein 7.4 6.3 - 7.9 g/dL 04/22/2023 12:38 PM [facility] Albumin, Plasma 4.4 3.5 - 5.2 g/dL 04/22/2023 12:38 PM [facility] AST, Plasma 43(H) 10 - 35 U/L 04/22/2023 12:38 PM [facility] ALT, Plasma 39(H) 10 - 35 U/L 04/22/2023 12:38 PM [facility] Alkaline Phosphatase, Plasma 112(H) 35 - 104 U/L 04/22/2023 12:38 PM [facility] Total Bilirubin, Plasma 0.3 0.2 - 1.1 mg/dL 04/22/2023 12:38 PM [facility] eGFRcr 125.4 mL/min/1.7 3m*2 04/22/2023 12:38 PM EST [facility] Comment:Reported eGFRcr in m L/min/1.73m2 is based the CKD-EPI 2020 equation that does not use a race coefficient. Blood Venous blood specimen / Unknown Venipuncture / Unknown 04/22/2023 12:00 PM EST 04/22/2023 12:13 PM EST us George Martinez MD LAB BLOOD ORDERABLES Final Result [facility] [address] [place] [address] * (ABNORMAL) CBC w/diff (04/22/2023 12:00 PM EST) WBC Count 6.37 3.70 - 10.30 10*3/uL LAB HEMATOLOGY METHOD 04/22/2023 12:17 PM EST [facility] RBC Count 4.67 3.90 - 5.20 10*6/uL LAB HEMATOLOGY METHOD 04/22/2023 12:17 PM EST [facility] HGB 12.3 11.2 - 15.7 g/dL LAB HEMATOLOGY METHOD 04/22/2023 12:17 PM EST [facility] HCT 37.3 34.0 - 45.0 % LAB HEMATOLOGY METHOD 04/22/2023 12:17 PM EST [facility] Platelet Count 227 155 - 369 10*3/uL LAB HEMATOLOGY METHOD 04/22/2023 12:17 PM EST [facility] MCV 80 79 - 98 fL LAB HEMATOLOGY METHOD 04/22/2023 12:17 PM EST [facility] MCH 26.3 26.0 - 32.0 pg LAB HEMATOLOGY METHOD 04/22/2023 12:17 PM EST [facility] MCHC 33.0 30.7 - 35.5 g/dL LAB HEMATOLOGY METHOD 04/22/2023 12:17 PM EST [facility] RDW 16.0(H) 11.5 - 14.5 % LAB HEMATOLOGY METHOD 04/22/2023 12:17 PM EST [facility] MPV 9.6 8.8 - 12.5 fL LAB HEMATOLOGY METHOD 04/22/2023 12:17 PM EST [facility] nRBC 0.0 <=0.0 per 100 WBCs LAB HEMATOLOGY METHOD 04/22/2023 12:17 PM EST [facility] Differential Type Automated LAB HEMATOLOGY METHOD 04/22/2023 12:17 PM EST [facility] Neutrophils % 59.0 % LAB HEMATOLOGY METHOD 04/22/2023 12:17 PM EST [facility] Lymphocytes % 31.0 % LAB HEMATOLOGY METHOD 04/22/2023 12:17 PM EST [facility] Monocytes % 6.0 % LAB HEMATOLOGY METHOD 04/22/2023 12:17 PM EST [facility] Eosinophils % 2.0 % LAB HEMATOLOGY METHOD 04/22/2023 12:17 PM EST [facility] Basophils % 1.0 % LAB HEMATOLOGY METHOD 04/22/2023 12:17 PM EST [facility] Immature Granulocytes % 1.0 % LAB HEMATOLOGY METHOD 04/22/2023 12:17 PM EST [facility] Neutrophils Absolute 3.85 1.60 - 6.10 10*3/uL LAB HEMATOLOGY METHOD 04/22/2023 12:17 PM EST [facility] Lymphocytes Absolute 1.95 1.20 - 3.90 10*3/uL LAB HEMATOLOGY METHOD 04/22/2023 12:17 PM EST [facility] Monocytes Absolute 0.35 0.30 - 0.90 10*3/uL LAB HEMATOLOGY METHOD 04/22/2023 12:17 PM EST [facility] Eosinophils Absolute 0.12 0.00 - 0.50 10*3/uL LAB HEMATOLOGY METHOD 04/22/2023 12:17 PM EST [facility] Basophils Absolute 0.07 0.00 - 0.10 10*3/uL LAB HEMATOLOGY METHOD 04/22/2023 12:17 PM EST [facility] Immature Granulocytes Absolute 0.03 0.00 - 0.06 10*3/uL LAB HEMATOLOGY METHOD 04/22/2023 12:17 PM EST [facility] Blood Venous blood specimen / Unknown Venipuncture / Unknown 04/22/2023 12:00 PM EST 04/22/2023 12:13 PM EST [facility] - 04/22/2023 12:17 PM EST Therapeutic decision making should be based on absolute values, rather than percentages. us George Martinez MD LAB BLOOD ORDERABLES Final Result [facility] [address] [place] [address] * (ABNORMAL) Lactic acid, venous (04/22/2023 11:44 AM EST) Lactate, Venous, Whole Blood 2.8(H) 0.5 - 2.2 mmol/L LAB HEMATOLOGY METHOD 04/22/2023 12:02 PM EST [facility] Blood Venous blood specimen / Unknown Venipuncture / Unknown 04/22/2023 11:44 AM EST 04/22/2023 11:54 AM EST us George Martinez MD LAB BLOOD ORDERABLES Final Result [facility] [address] [place] [address] documented in this encounter Visit Diagnoses Diagnosis LUQ pain- Primary Abdominal pain, left upper quadrant documented in this encounter Administered Medications Inactive Administered Medications - up to 3 most recent administrations Medication Order MAR Action Action Date Dose Rate Site morphine PF 4 mg 4 mg, Intravenous, Once, 1 dose, On Thu04/22/23 at 1120, STAT Given 04/22/2023 12:04 PM EST 4 mg morphine PF 4 mg 4 mg, Intravenous, Once, 1 dose, On Thu04/22/23 at 1300, STAT Given 04/22/2023 1:05 PM EST 4 mg ondansetron (Zofran) injection 4 mg 4 mg, Intravenous, Once, 1 dose, On Thu04/22/23 at 1120, STAT Given 04/22/2023 12:04 PM EST 4 mg ondansetron (Zofran) injection 4 mg 4 mg, Intravenous, Once, 1 dose, On Thu04/22/23 at 1300, STAT Given 04/22/2023 1:05 PM EST 4 mg sodium chloride 0.9 % infusion 1,000 mL 1,000 mL, Intravenous, Once, 1 dose, On Thu04/22/23 at 1120, STAT New Bag 04/22/2023 12:20 PM EST 1,000 mL documented in this encounter Active and Recently Administered Medications Times are shown in EST. Scheduled Medication Order 04/20/2023 04/21/2023 04/22/2023 morphine PF 4 mg (COMPLETED) 4 mg, Intravenous, Once, 1 dose, On Thu04/22/23 at 1120, STAT 1204 (Given - Provid er: Oni Mcclelland Jr.) morphine PF 4 mg (COMPLETED) 4 mg, Intravenous, Once, 1 dose, On Thu04/22/23 at 1300, STAT 1305 (Given - Provid er: Ginger Thornton) ondansetron (Zofran) injection 4 mg (COMPLETED) 4 mg, Intravenous, Once, 1 dose, On Thu04/22/23 at 1120, STAT 1204 (Given - Provid er: Oni Mcclelland Jr.) ondansetron (Zofran) injection 4 mg (COMPLETED) 4 mg, Intravenous, Once, 1 dose, On Thu04/22/23 at 1300, STAT 1305 (Given - Provid er: Ginger Thornton) sodium chloride 0.9 % infusion 1,000 mL 1,000 mL, Intravenous, Once, 1 dose, On Thu04/22/23 at 1120, STAT 1120 (Canceled Entry - Provider: Automatic Discharge Provider - Comment: Automatically canceled at discontinue of medication order) sodium chloride 0.9 % infusion 1,000 mL (COMPLETED) 1,000 mL, Intravenous, Once, 1 dose, On Thu04/22/23 at 1120, STAT 1220 (New Bag - Prov ider: Oni Mcclelland Jr.)[id number] (Stopped - Provider: Ginger Thornton) documented in this encounter Additional Health Concerns Assessment Noted Time A fall risk assessment has been complete d for the patient 11/21/2020 2:30 PM EDT A Body Mass Index follow-up plan has been documented for the patient 04/14/2023 2:24 PM EST documented as of this encounter Care Teams Worm Farmer Relationship Specialty Start Date End Date Citlali Marquez APRN [facility] [place] [address] PCP - General Family Medicine 03/26/23 10/19/23 Dipika Lorenzana LPN VALUE-BASED TRANSFORMATION PROGRAM TCM Nurse 04/17/23 05/15/23 documented as of this encounter
--- OUTSIDE RECORDS SUMMARY | 2024-02-03 15:12 | XMS_ITS | Encounter Summary ---
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
--- OUTSIDE RECORDS SUMMARY | 2024-02-03 15:12 | XMS_ITS | Encounter Summary ---
Author Organization [facility] Address [address] [place] [address] Care Team Providers Care Bobbin Handler Name Role Phone Citlali Marquez APRN Primary Care Provider [phone] Dipika Lorenzana LPN Unavailable Unavaila ble Encounter Details Date Type Department Care Team (Latest Contact Info) Description 04/22/2023 Travel Social History Tobacco Use Types Packs/Day [...] to sleep or slept in a senior living (including now)? 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 0 04/11/2023 CAGE Questionnaire Score 0 024 Utilities Answer Date Recorded In the past 12 months has th e [employer], gas, oil, or water company threatened [...] documented as of this encounter Care Teams Bobbin Handler Relationship Specialty Start Date End Date Citlali Marquez APRN [facility] [place] [phone] PCP - General Family Medicine 03/26/23 10/19/23 Dipika Lorenzana LPN VALUE-BASED TRANSFORMATION PROGRAM TCM Nurse 04/17/23 05/15/23 documented as of this encounter
--- OUTSIDE RECORDS SUMMARY | 2024-02-03 15:12 | XMS_ITS | Encounter Summary ---
Author Organization [facility] Address [address] [place] [address] Care Team Providers Care Dairy Supplies Sales Representative Name Role Phone JimmyCitlali lowe Gilberto ORELLANA Primary Care Provider [phone] Encounter Details Date Type Department Care Team (Latest Contact Info) Description 06/04/2023 Travel Social History Tobacco Use Types Packs/Day [...] drink first t caleb in the morning (EYE-RECYCLING MANAGER) to steady your nerves or to [...] Date Last Indicated Resolved Time COVID-19 Rule-Out 06/04/2023 06/04/2023 06/04/2023 11:14 AM EDT Assessment Noted Time A fall risk assessment has been complete d for the patient 11/21/2020 2:30 PM EDT A Body Mass Index follow-up plan has been documented for the patient 04/14/2023 2:24 PM EST documented as of this encounter Care Teams Dairy Supplies Sales Representative Relationship Specialty Start Date End Date Citlali Marquez APRN [address] [place] [address] PCP - General Family Medicine 03/26/23 10/19/23 documented as of this encounter
--- OUTSIDE RECORDS SUMMARY | 2024-02-03 15:12 | XMS_ITS | Encounter Summary ---
Author Organization Healthcare Address [address] [place] [address] Care Team Providers Care Account Director Name Role Phone [place] Gilberto ORELLANA Primary Care Provider [phone] Reason for Visit * Reason Comments Abdominal Pain Encounter Details Date Type Department Care Team (Late st Contact Info) Description 06/13/2023 11:19 PM EDT - 06/14/2023 12:31 AM EDT Emergency [facility] [address] [place] [address] George Martinez MD [address] [place] [address] Nausea (Primary Dx); LUQ pain; First trimester Discharge Disposition: Home or Self Care Social [...] drink first t caleb in the 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) to steady your nerves or to get [...] Sign Reading Time Taken Comments Blood Pressure 143/94 06/13/2023 11:35 PM EDT Pulse 115 06/14/2023 12:31 AM EDT Temperature 36.7 ??C (98 ??F) 06/13/2023 11: 35 PM EDT Respiratory Rate 18 06/13/2023 11:3 5 PM EDT Oxygen Saturation 99% 06/13/2023 11: 35 PM EDT Inhaled Oxygen Concentration - - Weight 97.5 kg (214 lb 15.2 oz) 024 11:48 PM EDT Height 165.1 cm (5' 5 ) 06/13/2023 11:4 8 PM EDT Body Mass Index 35.77 06/13/2023 11:48 PM EDT documented in this encounter Functional [...] * Discharge Instructions* George Martinez MD - 06/14/2023 12:30 AM EDT At this time we will recommend use of Reglan considering your until you are finished withthe 1st trimester at which point you can potentially switch back to Zofran. Please discuss your nausea medication usage with your OBGYN when you get established for care during her . If yoursymptoms worsen your always welcome to return for repeat evaluation documented in this encounter Medications at Time [...] symptoms continue 1 each 02/23/2023 4 pancrelipase, Oyy-Rsot-Slgg, (Creon) 6000-78810 units capsule Take 1 capsule by mouth [...] Provider Notes - George Martinez MD - 06/13/2023 11:16 PM EDT Images from the original note were not included. - HPI Chief Complaint Patient presents with Abdominal Pain Lila Mcnally is a 37 y.o. female with a PMH of Pancreatitis, GERD, Gastric erosions, HTN, and Fibromyalgia who presents to the ED with Abdominal Pain. Pt complains of LUQ abdominal pain with nausea and vomiting which onset tonight. Pt describes an intense pain in her LUQ that is radiating into her upper back. Pt also reports nausea and 3 episodes of vomiting tonight secondary to her abdomina l pain. Pt endorses currently being with her fourth child, pt adds her LMP was approx 04/11. Per record review, pt presented in the ED yesterday with similar complaints. 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 Pt denies diarrhea, fever, fatigue, chills, headache, chest pain, SOA. 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 by: Patient interpreter used: No Tabiona Coma Scale Score: 15 Patient History Past Medical History: Diagnosis Date Anxiety Arthritis Depression Fibromyalgia Gastric erosions 04/19/2021 GERD (gastroesophageal reflux disease) Hypertension Intentional overdose ([facility]) 12/20/2021 Nicotine dependence Obesity Pancreatitis [...] Constitutional: Negative for chills, fatigue and fever. HENT: Negative for ear pain and sore throat. Eyes: Negative for pain and visual disturbance. Respiratory: Negative for cough and shortness of breath. Cardiovascular: Negative for chest pain and palpitations. Gastrointestinal: Positive for abdominal pain, nausea and vomiting. Negative for diarrhea. Genitourinary: Negative for dysuria and hematuria. Musculoskeletal: Negative for arthralgias and back pain. Skin: Negative for color change and rash. Neurological: Negative for dizziness, seizures, syncope, weakness, numbness and headaches. All other systems reviewed and are negative. Physical Exam ED Triage Vitals [06/13/23 2335] Temp Heart Rate Resp BP 36.7 ??C (98 ??F) (!) 123 18 (!) 143/94 SpO2 Temp Source Heart Rate Source Patient Position 99 % Oral -- Sitting BP Location FiO2 (%) Right arm -- Physical Exam Vitals and nursing note reviewed. Constitutional: General: She is not in acute distress. Appearance: She is well-developed. HENT: Head: Normocephalic and atraumatic. Nose: Nose normal. Eyes: Conjunctiva/sclera: Conjunctivae normal. Cardiovascular: Rate and Rhythm: Normal rate and regular rhythm. Heart sounds: No murmur heard. Pulmonary: Effort: Pulmonary effort is normal. No respiratory distress. Breath sounds: Normal breath sounds. Abdominal: Palpations: Abdomen is soft. Tenderness: There is abdominal tenderness in the left upper quadrant. There is guarding. Comments: Voluntary guarding Musculoskeletal: General: No swelling. Cervical back: Neck supple. Skin: General: Skin is warm and dry. Capillary Refill: Capillary refill takes less than 2 seconds. Neurological: General: No focal deficit present. Mental Status: She is alert and oriented to person, place, and time. Psychiatric: Mood and Affect: Mood normal. ED Course & MDM Clinical Impressions as of 06/14/23 0103 Nausea LUQ pain First trimester - Medical Decision Making Lila Mcnally is a 37 yrs old female presents today for Chief Complaint Patient presents with Abdominal Pain . Summary of ED Care: Patient is a 37-year-old female who is presenting today with complaint of nausea vomiting and left upper abdominal pain. Patient is known to have chronic intermittent left upper abdominal pain for which she frequently comes to the ER most recently yesterday. Roughly 10 days ago patient was diagnosed with in the emergency room. Patient had come into the ER for the same pain yesterday and had workup that was largely reassuring at that time she received morphine. I personally do not feel comfortable providing morphine to a patient. Informed the patient thatwe would not be providing any narcotic pain medication. We discuss potentially repeating labs and doing fluid bolus and nausea medication. Patient would rather attempt oral nausea medication in the form of Reglan. Informed the patient that we would not recommend continued use of Zofran during the 1st trimester due to theoretical concerns of cleft palate. Patient is agreeable. Prescribed Reglan for the patient. Patient tolerated by mouth challenge states that she would like to go home. Patient di scharged Additional MDM Differential Diagnoses: Based on her history and physical exam, my differential diagnosis included GERD, gastric erosion, fibromyalgia, pancreatitis. Ruling out the most morbid conditions drove my clinical assessment. In order to fully explore differential these tests were ordered. Orders Placed This Encounter Procedures CMP Magnesium CBC w/diff Lipase Prior Records Review: It should be noted that her chronic conditions includes chronic intermittent left upper abdominal pain, which currently is not at goal therapy. This complicates her clinical picture because it may beexacerbating symptoms. Independent Results Review: Prescription Medication Management in ED and Reassessment: Medications metoclopramide (Reglan) tablet 10 mg (10 mg Oral Given 06/13/23 8182) Patient reevaluated after treatments listed above provided and condition improved with medications given. I discussed with the patient/family the value of prescribing Anti-emetics and we, through shared decision making, decided that these medications would benefit the patient based on todays illness. Consults and Discussions with other providers: Disposition: Ultimately, this patient Was discharged Home (Discharge) The primary encounter diagnosis was Nausea. Diagnoses of LUQ pain and First trimester were also pertinent to this visit. . Patient was counseled on the diagnoses. Discharge medications if any are listed below. Listed medications are thought be either curative for listed diagnoses or will help control ongoing symptoms. Patient is requested to follow up with OBGYN in order to obtain specialty care. Instructions on follow up as well as precautions to return to the ER providedverbally by the EDMD, as well as written in patients discharge education packet. Specific instructions provided are as follows: Discharge Instructions At this time we will recommend use of Reglan considering your until you are finished withthe 1st trimester at which point you can potentially switch back to Zofran. Please discuss your nausea medication usage with your OBGYN when you get established for care during her . If yoursymptoms worsen your always welcome to return for repeat evaluation Disposition Discharge AVS (Printed 06/14/2023) Date/Time: 06/14/2023/1:03 AM Entered by Merari Stout acting as scribe for George Dawkins MD Attending Attestation: The documentation was recorded by Merari Stout, acting as scribe in my presence at the time of the encounter and accurately reflects the service I personally performed. ED Prescriptions Medication Sig Dispense Start Date End Date Auth. Provider metoclopramide (Reglan) 10 MG tablet Take 1 tablet (10 mg) by mouth 3 (three) times a day if needed(nausea) for up to 30 doses. 30 tablet 06/14/2023 -- George Martinez MD Discharge Instructions At this time we will recommend use of Reglan considering your until you are finished withthe 1st trimester at which point you can potentially switch back to Zofran. Please discuss your nausea medication usage with your OBGYN when you get established for care during her . If yoursymptoms worsen your always welcome to return for repeat evaluation Disposition Discharge AVS (Printed 06/14/2023) Sign Off Checklist Clinical Impression: Complete ED Disposition: Complete - George Martinez MD 06/14/23 0103 * ED Triage Notes - Abigail Dial RN - 06/13/2023 11:16 PM EDT Pt c/o hx of chronic pancreatitis; states she is currently and has not had any alcohol. States she went out to dinner with some friends and began vomiting with severe LUQ pain radiating to her back. Three episodes of vomiting in the last two hours. documented in this encounter Plan of Treatment Not on file documented as of this encounter Visit Diagnoses Diagnosis Nausea- Primary Nausea alone LUQ pain Abdominal pain, left upper quadrant First trimester state, incidental documented in this encounter Administered Medications Inactive Administered Medications - up to 3 most recent administrations Medication Order MAR Action Action Date Dose Rate Site metoclopramide (Reglan) tablet 10 mg 10 mg, Oral, Once, 1 dose, On 06/13/23 at 2355, Routine Given 06/13/2023 11:54 PM EDT 10 mg documented in this encounter Active and Recently Administered Medications Times are shown in EDT. Scheduled Medication Order 06/12/2023 06/13/2023 06/14/2023 metoclopramide (Reglan) tablet 10 mg (COMPLETED) 10 mg, Oral, Once, 1 dose, On 06/13/23 at 2355, Routine 2354 (Given - Provider: Agnes Tineo) sodium chloride 0.9 % infusion 1,000 mL 1,000 mL, Intravenous, Once, 1 dose, On 06/13/23 at 2345, STAT 0030 (Canceled Entry - Provider: Agnes Tineo) documented in this encounter Additional Health Concerns Assessment Noted Time A fall risk assessment has been complete d for the patient 11/21/2020 2:30 PM EDT A Body Mass Index follow-up plan has been documented for the patient 04/14/2023 2:24 PM EST documented as of this encounter Care Teams Account Director Relationship Specialty Start Date End Date Citlali Marquez APRN [facility] [place] [id number] PCP - General Family Medicine 03/26/23 10/19/23 documented as of this encounter
--- OUTSIDE RECORDS SUMMARY | 2024-02-03 15:12 | XMS_ITS | Encounter Summary ---
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 Ibuprofen 800 mg Oral Every 6 hours PRN Lidocaine 4 % 1 patch Apply externally 2 times daily PRN LORazepam 2 mg Oral 2 times daily Melatonin 10 mg Oral Nightly PRN Naloxone HCl 8 mg Nasal As needed Ondansetron 4 mg Oral Every 6 hours PRN oxyCODONE HCl 10 mg Oral Every 6 hours PRN Pancrelipase (Bzn-Lthu-Xzhi) 6000-53707 units 1 capsule Oral 3 times daily with meals Pantoprazole Sodium 40 mg Oral Daily, Do not crush, chew, or split. Pregabalin 300 mg Oral 2 times daily Promethazine HCl 25 mg Oral Every 6 hours PRN Sucralfate 1 g Oral Every 6 hours scheduled ----- Per Discharge Summary: No discharge summary available at this time. ALONZO appt on: 04/28/2023@9:00 am with Dorys Dang. Spoke with patient for TCM nurse call. Patient aware of appointment and plans to attend. Patient denies any symptoms at this time. Completed post discharge assessment and medication review. Patient denies any questions or concerns for this nurse at thistime. ----- Post Discharge Instructions: Per AVS, Keep appointment as scheduled with pain management for evaluation of pain pump documented in this encounter Plan of Treatment [...] documented as of this encounter Care Teams It Help Desk Manager Relationship Specialty Start Date End Date Citlali Marquez APRN [address] [place] [phone] PCP - General Family Medicine 03/26/23 10/19/23 Dipika Lorenzana LPN VALUE-BASED TRANSFORMATION PROGRAM TCM Nurse 04/17/23 05/15/23 documented as of this encounter
--- OUTSIDE RECORDS SUMMARY | 2024-02-03 15:12 | XMS_ITS | Encounter Summary ---
Author Organization Healthcare Address [address] [place] [address] Care Team Providers Care Prototyper Name Role Phone JimmyCitlali lowe Gilberto ORELLANA Primary Care Provider [phone] Dipika Lorenzana LPN Unavailable Unavaila ble Encounter Details Date Type Department Care Team (Late st Contact Info) Description 05/15/2023 Patient Outreach POPULATION [address] [address] Dipika Lorenzana LPN VALUE-BASED TRANSFORMATION PROGRAM Social History Tobacco Use Types Packs/Day Years [...] slept in a detention (including now)? 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-VISE HAND) to steady your nerves or to get [...] documented as of this encounter Care Teams Prototyper Relationship Specialty Start Date End Date Citlali Marquez [facility]N [facility] [place] [address] PCP - General Family Medicine 03/26/23 10/19/23 Walker, Dipika L, SENIOR CONSTRUCTION PROJECT MANAGER VALUE-BASED TRANSFORMATION PROGRAM TCM Nurse 04/17/23 05/15/23 documented as of this encounter
--- OUTSIDE RECORDS SUMMARY | 2024-02-03 15:12 | XMS_ITS | Encounter Summary ---
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 0 04/11/2023 CAGE Questionnaire Score 0 024 Utilities Answer Date Recorded In the past 12 months has th e [employer], oil, or water [employer] threatened to shut off services in your [...] documented in this encounter Miscellaneous Notes * Telephone Encounter - Letty Mason RN - 06/09/2023 4:24 PM EDT Attempt #2 to call the patient to review POC and follow-up after her ED visit was unsuccessful. [facility] Services[facility] message from yesterday remains unread. Voicemail left requesting she call back to confirm, number provided, or that she read and reply in MyChart if that is more convenient. 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 Patient's medical history, per ED documentation, includes chronic abdominal pain, GERD, pancreatitis, obesity, fibromyalgia. Assessment @ that time included: LMP: unknown Beta hC,487 H&H: 13.0/38.7 Plts: 246 Patient declined to stay for imaging and left via Patient Directed Discharge prior to establishing location, gestational age, or viability. POC includes ambulatory follow-up for confirmation. Patient tentatively scheduled for 06/10/2023 @ [address] Alexis. Attempt to call the patient to confirm was unsuccessful. No Answer. Voicemail left requesting the patient call back @ her convenience. Will follow-up with a [employer] message as an alternative form of communication. documented in this encounter Plan of Treatment [...] documented as of this encounter Care Teams Vice Principal Relationship Specialty Start Date End Date Citlali Marquez APRN [facility] [place] [address] PCP - General Family Medicine 03/26/23 10/19/23 documented as of this encounter
--- OUTSIDE RECORDS SUMMARY | 2024-02-03 15:12 | XMS_ITS | Encounter Summary ---
Author Organization Healthcare Address [address] [place] [address] Care Team Providers Care Packing Room Worker Name Role Phone DimockCitlali lowe Gilberto ORELLANA Primary Care Provider [phone] Reason for Visit * Reason Comments Abdominal Pain Encounter Details Date Type Department Care Team (Late st Contact Info) Description 06/12/2023 9:05 AM EDT - 06/12/2023 1:11 PM EDT Emergency [facility] Emergency Department [address] [place] [address] Benjamin Munguia MD [address] [place] [address] Abdominal pain, epigastric (Primary Dx) [...] drink first t caleb in the morning (EYE-AGENT TELEGRAPHER) to steady your nerves or to get [...] Sign Reading Time Taken Comments Blood Pressure 125/86 06/12/2023 1:08 PM EDT Pulse 88 06/12/2023 1:08 PM EDT Temperature 36.6 ??C (97.9 ??F) 06/12/2023 9:06 AM ED T Respiratory Rate 20 06/12/2023 9:06 AM EDT Oxygen Saturation 100% 06/12/2023 1:08 PM EDT Inhaled Oxygen Concentration - - Weight 97 kg (213 lb 13.5 oz) 06/12/2023 9:06 AM EDT Height - - Body Mass Index 35.59 06/04/2023 10:28 AM EDT documented in this encounter Functional [...] cannot be sent through Care Everywhere. * Bladder Infection, Female (Adult) (Malian) documented in this encounter Medications at Time [...] symptoms continue 1 each 02/23/2023 4 pancrelipase, Zet-Keuo-Gaem, (Creon) [id number] units capsule Take 1 capsule by mouth [...] Miscellaneous Notes * ED Provider Notes - Benjamin Munguia MD - 06/12/2023 8:56 AM EDT Images from the original note were not included. - HPI Chief Complaint Patient presents with Abdominal Pain Lila Mcnally is a 37 y.o. female with a history of anxiety, depression, fibromyalgia, GERD, HTN, and pancreatitis who presents to the ED with abdominal pain. Pt c/o LUQ pain, nausea, and vomitingsince Thursday. Pt reports pain radiates into back. Endorses taking zofran with relief. Pt reportspositive test. Says LMP was approx 04/11.She reports upcoming OB appt on 06/23. Pt denies pelvic pain, vagina;l bleeding, or vaginal discharge. Oj Coma Scale Score: 15 Patient History Past Medical History: Diagnosis Date Anxiety Arthritis Depression Fibromyalgia Gastric erosions 04/19/2021 GERD (gastroesophageal reflux disease) Hypertension Intentional overdose ([facility]) 12/20/2021 Nicotine [...] Positive for abdominal pain, nausea and vomiting. Genitourinary: Negative for dysuria and hematuria. Musculoskeletal: Negative for arthralgias and back pain. Skin: Negative for color change and rash. Neurological: Negative for seizures and syncope. All other systems reviewed and are negative. Physical Exam ED Triage Vitals [06/12/23 0906] Temp Heart Rate Resp BP 36.6 ??C (97.9 ??F) (!) 135 20 133/84 SpO2 Temp Source Heart Rate Source Patient [...] reactive to light. Cardiovascular: Rate and Rhythm: Tachycardia present. Pulmonary: Effort: Pulmonary effort is normal. No respiratory distress. Breath sounds: No stridor. Abdominal: Tenderness: There is abdominal tenderness in the left upper quadrant. Musculoskeletal: General: Normal range of motion. Cervical back: No rigidity. Skin: General: Skin is warm and dry. Neurological: Mental Status: She is alert and oriented to person, place, and time. Psychiatric: Mood and Affect: Mood normal. Behavior: Behavior normal. ED Course & MDM Clinical Impressions as of 06/12/23 1220 Abdominal pain, epigastric Medical Decision Making 9:27 AM Pt reports pain is similar to prior pain but has not had OB f/u. Labs, IVFs, antiemetics, analgesia, US ordered. 10:25 AM Pt requesting stronger pain meds than Tylenol for US. Discussed r/b of opioids during . Ptexpresses understanding and would like to receive single- dose morphine at this time. 12:19 PM Pt resting comfortably, pain improved. Labs reassuring. UA concerning for asymptomatic bacteria so abx rx given. Pt has appt with her OB in [place], which is why she hasn't responded to OB's phone calls. Rx for given and pt states she has antiemetics at home as well. Pt discharged in good condition with return precautions. 06/12/2023, 9:14 AM Scribe Attestation: This note was dictated to me, Sonal Telles, acting as a scribe for Benjamin Herrera MD. Attending Attestation: This documentation was recorded by Sonal Telles acting as a scribe in my presence at the time of the encounter and accurately reflects the service I personally performed and thedecisions made by me. ED Prescriptions Medication Sig Dispense Start Date End Date Auth. Provider nitrofurantoin, macrocrystal-monohydrate, (Macrobid) 100 MG capsule Take 1 capsule (100 mg) by mouth 2 (two) times a day for 5 days. 10 capsule 06/12/2023 06/17/2023 Benjamin Munguia MD multivitamin (Trinatal Rx 1) 60-1 MG tablet tablet Take 1 tablet by mouth 1 (one) time each day. 30 tablet 06/12/2023 -- Benjamin Munguia MD Discharge References/Attachments Bladder Infection, Female (Adult) (Malian) Disposition Discharge Follow-Ups Follow up with Citlali Marquez APRN (Family Medicine) Follow up with [facility] (Emergency Medicine); If symptoms worsen Sign Off Checklist Clinical Impression: Complete ED Disposition: Complete - Benjamin Munguia MD 06/12/23 1220 * ED Triage Notes - Angeles Palacios RN - 06/12/2023 8:56 AM EDT Patient reports continuous abdominal pain since Thursday with vomiting documented in this encounter Plan of Treatment Not on file documented as of this encounter Procedures Procedure Name Priority Date/Time Associated Diagnosis Comments LACTATE, VENOUS STAT 06/12/2023 11:26 AM EDT ABO/RH STAT 06/12/2023 11:26 AM EDT CBC WITH AUTO DIFFERENTIAL STAT 06/12/2023 11:26 AM EDT HCG, QUANTITATIVE STAT 06/12/2023 11: 26 AM EDT MAGNESIUM, PLASMA STAT 06/12/2023 11: 26 AM EDT LIPASE, PLASMA STAT 06/12/2023 11:26 AM EDT COMPREHENSIVE METABOLIC PANEL, PLASMA STAT 06/12/2023 11:26 AM EDT OB US LIMITED STAT 06/12/2023 10:44 AM EDT URINALYSIS WITH REFLEX MICROSCOPIC STAT 06/12/2023 10:41 AM EDT URINE GUNTER PANEL STAT 06/12/2023 10:4 1 AM EDT URINALYSIS MICROSCOPIC FOR UA REFLEX STAT 06/12/2023 10:41 AM EDT URINALYSIS WITH REFLEX MICROSCOPIC STAT 06/12/2023 10:41 AM EDT documented in this encounter Results * ABO/Rh (06/12/2023 11:26 AM EDT) ABO/Rh O Positive 06/12/2023 9:04 AM EDT BLOOD BANK Blood Venous blood specimen / Unknown Venipuncture / Unknown 06/12/2023 11:26 AM EDT 06/12/2023 12:26 PM EDT Benjamin Munguia MD LAB BLOOD BANK TEST ORDERABLES Final Result Performing Organization Address City/State/[place]UST de Phone Number BLOOD BANK [address] * (ABNORMAL) hCG, quantitative, (06/12/2023 11:26 AM EDT) hCG, Total Beta 61,254(H) <5 mIU/mL 06/12/2023 12:19 PM EDT [facility] Blood Venous blood specimen / Unknown Venipuncture / Unknown 06/12/2023 11:26 AM EDT 06/12/2023 11:32 AM EDT Narrative [facility] - 06/12/2023 12:19 PM EDT Patients: ? Normal Range Premenopausal Female [...] or kits cannot be used interchangeably. us Benjamin Munguia MD LAB BLOOD ORDERABLES Final Resu lt [facility] [address] [place], [place] [id number] * (ABNORMAL) CBC w/diff (06/12/2023 11:26 AM EDT) WBC Count 7.12 3.70 - 10.30 10*3/uL LAB HEMATOLOGY METHOD 06/12/2023 11:34 AM EDT [facility] RBC Count 4.27 3.90 - 5.20 10*6/uL LAB HEMATOLOGY METHOD 06/12/2023 11:34 AM EDT [facility] HGB 11.6 11.2 - 15.7 g/dL LAB HEMATOLOGY METHOD 06/12/2023 11:34 AM EDT [facility] HCT 36.1 34.0 - 45.0 % LAB HEMATOLOGY METHOD 06/12/2023 11:34 AM EDT [facility] Platelet Count 253 155 - 369 10*3/uL LAB HEMATOLOGY METHOD 06/12/2023 11:34 AM EDT [facility] MCV 85 79 - 98 fL LAB HEMATOLOGY METHOD 06/12/2023 11:34 AM EDT [facility] MCH 27.2 26.0 - 32.0 pg LAB HEMATOLOGY METHOD 06/12/2023 11:34 AM EDT [facility] MCHC 32.1 30.7 - 35.5 g/dL LAB HEMATOLOGY METHOD 06/12/2023 11:34 AM EDT [facility] RDW 16.0(H) 11.5 - 14.5 % LAB HEMATOLOGY METHOD 06/12/2023 11:34 AM EDT [facility] MPV 9.6 8.8 - 12.5 fL LAB HEMATOLOGY METHOD 06/12/2023 11:34 AM EDT [facility] nRBC 0.0 <=0.0 per 100 WBCs LAB HEMATOLOGY METHOD 06/12/2023 11:34 AM EDT [facility] Differential Type Automated LAB HEMATOLOGY METHOD 06/12/2023 11:34 AM EDT [facility] Neutrophils % 68.0 % LAB HEMATOLOGY METHOD 06/12/2023 11:34 AM EDT [facility] Lymphocytes % 26.0 % LAB HEMATOLOGY METHOD 06/12/2023 11:34 AM EDT [facility] Monocytes % 4.0 % LAB HEMATOLOGY METHOD 06/12/2023 11:34 AM EDT [facility] Eosinophils % 1.0 % LAB HEMATOLOGY METHOD 06/12/2023 11:34 AM EDT [facility] Basophils % 1.0 % LAB HEMATOLOGY METHOD 06/12/2023 11:34 AM EDT [facility] Immature Granulocytes % 0.0 % LAB HEMATOLOGY METHOD 06/12/2023 11:34 AM EDT [facility] Neutrophils Absolute 4.84 1.60 - 6.10 10*3/uL LAB HEMATOLOGY METHOD 06/12/2023 11:34 AM EDT [facility] Lymphocytes Absolute 1.87 1.20 - 3.90 10*3/uL LAB HEMATOLOGY METHOD 06/12/2023 11:34 AM EDT [facility] Monocytes Absolute 0.30 0.30 - 0.90 10*3/uL LAB HEMATOLOGY METHOD 06/12/2023 11:34 AM EDT [facility] Eosinophils Absolute 0.04 0.00 - 0.50 10*3/uL LAB HEMATOLOGY METHOD 06/12/2023 11:34 AM EDT [facility] Basophils Absolute 0.04 0.00 - 0.10 10*3/uL LAB HEMATOLOGY METHOD 06/12/2023 11:34 AM EDT [facility] Immature Granulocytes Absolute 0.03 0.00 - 0.06 10*3/uL LAB HEMATOLOGY METHOD 06/12/2023 11:34 AM EDT [facility] Blood Venous blood specimen / Unknown Venipuncture / Unknown 06/12/2023 11:26 AM EDT 06/12/2023 11:32 AM EDT [facility] - 06/12/2023 11:34 AM EDT Therapeutic decision making should be based on absolute values, rather than percentages. us Benjamin Munguia MD LAB BLOOD ORDERABLES Final Resu lt Performing Organization Address City/[facility]/ZIP Co de Phone Number [facility] [address] [place] [address] * Lactic acid, venous (06/12/2023 11:26 AM EDT) Lactate, Venous, Whole Blood 1.6 0.5 - 2.2 mmol/L LAB HEMATOLOGY METHOD 06/12/2023 11:34 AM EDT [facility] Blood Venous blood specimen / Unknown Venipuncture / Unknown 06/12/2023 11:26 AM EDT 06/12/2023 11:32 AM EDT Benjamin Munguia MD LAB BLOOD ORDERABLES Final Resu lt Performing Organization Address [facility] Co de Phone Number [facility] [address] [place] [address] * Lipase (06/12/2023 11:26 AM EDT) Lipase, Plasma 24 19 - 63 U/L 06/12/2023 12:00 PM EDT [facility] Blood Venous blood specimen / Unknown Venipuncture / Unknown 06/12/2023 11:26 AM EDT 06/12/2023 11:32 AM EDT Benjamin Munguia MD LAB BLOOD ORDERABLES Final Resu lt Performing Organization Address [facility] Co de Phone Number [facility] [address] [place] [address] * Magnesium (06/12/2023 11:26 AM EDT) Magnesium, Plasma 2.0 1.9 - 2.4 mg/dL 06/12/2023 12:00 PM EDT [facility] Blood Venous blood specimen / Unknown Venipuncture / Unknown 06/12/2023 11:26 AM EDT 06/12/2023 11:32 AM EDT us Benjamin Munguia MD LAB BLOOD ORDERABLES Final Resu lt Performing Organization Address City/[facility] Co de Phone Number [facility] [address] [place] [address] * (ABNORMAL) CMP (06/12/2023 11:26 AM EDT) Glucose, Plasma 91 74 - 99 mg/dL 06/12/2023 12:00 PM EDT [facility] BUN, Plasma 8 7 - 21 mg/dL 06/12/2023 12:00 PM EDT [facility] Creatinine, Plasma 0.43(L) 0.60 - 1.10 mg/dL 06/12/2023 12:00 PM EDT [facility] BUN/Creatinine Ratio 06/12/2023 12:00 PM EDT [facility] Sodium, Plasma 135(L) 136 - 145 mmol/L 06/12/2023 12:00 PM EDT [facility] Potassium, Plasma 4.0 3.7 - 4.8 mmol/L 06/12/2023 12:00 PM EDT [facility] Chloride, Plasma 104 97 - 107 mmol/L 06/12/2023 12:00 PM EDT [facility] CO2, Plasma 21(L) 22 - 29 mmol/L 06/12/2023 12:00 PM EDT [facility] Anion Gap 10 6 - 16 mmol/L 06/12/2023 12:00 PM EDT [facility] Total Calcium, Plasma 9.1 8.9 - 10.2 mg/dL 06/12/2023 12:00 PM EDT [facility] Total Protein 6.7 6.3 - 7.9 g/dL 06/12/2023 12:00 PM EDT [facility] Albumin, Plasma 4.2 3.5 - 5.2 g/dL 06/12/2023 12:00 PM EDT [facility] AST, Plasma 16 10 - 35 U/L 06/12/2023 12:00 PM EDT [facility] ALT, Plasma 25 10 - 35 U/L 06/12/2023 12:00 PM EDT [facility] Alkaline Phosphatase, Plasma 68 35 - 104 U/L 06/12/2023 12:00 PM EDT [facility] Total Bilirubin, Plasma <0.2(L) 0.2 - 1.1 mg/dL 06/12/2023 12:00 PM EDT [facility] eGFRcr 129.5 mL/min/1.7 3m*2 06/12/2023 12:00 PM EDT [facility] Comment:Reported eGFRcr in m L/min/1.73m2 is based the CKD-EPI 2020 equation that does not use a race coefficient. Blood Venous blood specimen / Unknown Venipuncture / Unknown 06/12/2023 11:26 AM EDT 06/12/2023 11:32 AM EDT us Benjamin Munguia MD LAB BLOOD ORDERABLES Final Resu lt [facility] [address] [place] [address] * OB US Limited (06/12/2023 10:44 AM EDT) Anatomical Region Laterality Modality Pelvis Ultrasound Study GA Study Date Study MINGO Working MINGO (Source) Feta l Weight (Method) 06/12/2023 Addenda Addendum by Marce Bellamy MD on 06/30/2023 10:48 PM EDT Addendum: ADDENDUM: TECHNIQUE: Multiplanar transabdominal grayscale and color Doppler ultrasound imaging of the pelvis was performed for early OB ultrasound. Color doppler ultrasound imaging and spectral waveform analysis was performed to evaluate for possible ovarian torsion. Drafted by Marce Bellamy MD on 06/30/2023 10:47 PM Final report signed by Marce Bellamy MD on 06/30/2023 10:48 PM Addendum by Marce Bellamy MD on 06/29/2023 3:44 PM EDT Addendum: ADDENDUM: TECHNIQUE: Multiplanar transabdominal grayscale and color Doppler ultrasound imaging of the pelvis was performed for early OB ultrasound . Color doppler ultrasound imaging and spectral waveform analysis was performed . Drafted by Marce Bellamy MD on 06/29/2023 3:42 PM Final report signed by Marce Bellamy MD on 06/29/2023 3:44 PM Impressions 06/12/2023 10:48 AM EDT A single live intrauterine gestation corresponding to 7 weeks 4 days. heart rate is 149 bpm. CRITICAL RESULT: No. COMMUNICATION: Per this written report. Drafted by Marce Bellamy MD on 06/12/2023 10:45 AM Final report signed by Marce Bellamy MD on 06/12/2023 10:48 AM Narrative 06/12/2023 10:48 AM EDT CLINICAL INDICATION: abd pain, 1st trimester TECHNIQUE: Multiplanar transvaginal grayscale and color Doppler ultrasound imaging of the pelvis was performed. Transvaginal scanning was performed to increase imaging detail and to improve diagnostic accuracy. Color doppler ultrasound imaging and spectral waveform analysis was performed to evaluate for possible ovarian torsion. COMPARISON: None. FINDINGS: A single live intrauterine gestation with a pole and yolk sac identified. Gestational sac corresponds to 7 weeks 4 days. heart rate is 149 bpm. Fluid Survey: No free fluid in the pelvis. Procedure Note Marce Bellamy MD - 06/12/2023 CLINICAL INDICATION: abd pain, 1st trimester TECHNIQUE: Multiplanar transvaginal grayscale and color Doppler ultrasound imaging ofthe pelvis was performed. Transvaginal scanning was performed to increaseimaging detail and to improve diagnostic accuracy. Color dopplerultrasound imaging and spectral waveform analysis was performed toevaluate for possible ovarian torsion. COMPARISON: None. FINDINGS: A single live intrauterine gestation with a pole and yolk sacidentified. Gestational sac corresponds to 7 weeks 4 days. heartrate is 149 bpm. Fluid Survey: No free fluid in the pelvis. IMPRESSION: A single live intrauterine gestation corresponding to 7 weeks 4 days. heart rate is 149 bpm. CRITICAL RESULT: No. COMMUNICATION: Per this written report. Drafted by Marce Bellamy MD on 06/12/2023 10:45 AM Final report signed by Marce Bellamy MD on 06/12/2023 10:48 AM Benjamin Munguia MD IMG OB US PROCEDURES Edited Res ult - Final * Urinalysis Microscopic Examination (06/12/2023 10:41 AM EDT) Urine Urine specimen obtained by clean catch procedure / Unknown Non-blood Collection / Unknown 06/12/2023 10:41 AM EDT 06/12/2023 10:50 AM EDT Benjamin Munguia MD LAB URINE ORDERABLES Final Resu lt Performing Organization Address City/[facility]/ZIP Co de Phone Number [facility] [address] [place] [address] * Urine Gunter Panel (06/12/2023 10:41 AM EDT) Extra Reflex urine culture not indicated 06/12/2023 12:02 PM EDT [facility] Urine Urine specimen obtained by clean catch procedure / Unknown Non-blood Collection / Unknown 06/12/2023 10:41 AM EDT 06/12/2023 10:50 AM EDT us Benjamin Munguia MD LAB URINE ORDERABLES Final Resu lt Performing Organization Address [facility] Co de Phone Number [facility] [address] [place] [address] * (ABNORMAL) Urinalysis with reflex microscopic (Culture NOT Included) (06/12/2023 10:41 AM EDT) Color, Urine Yellow LAB URINALYSIS - AUTOMATED METHOD 06/12/2023 11:03 AM EDT [facility] Clarity, Urine Cloudy LAB URINALYSIS - AUTOMATED METHOD 06/12/2023 11:03 AM EDT [facility] Spec [place], Urine 1.020 <=1.005 to >=1.030 LAB URINALYSIS - AUTOMATED METHOD 06/12/2023 11:03 AM EDT [facility] pH, Urine 6.5 4.5 to 8 LAB URINALYSIS - AUTOMATED METHOD 06/12/2023 11:03 AM EDT [facility] Protein, Urine Negative Negative mg/dL LAB URINALYSIS - AUTOMATED METHOD 06/12/2023 11:03 AM EDT [facility] Glucose, Urine Negative Negative mg/dL LAB URINALYSIS - AUTOMATED METHOD 06/12/2023 11:03 AM EDT [facility] Ketones, Urine Negative Negative mg/dL LAB URINALYSIS - AUTOMATED METHOD 06/12/2023 11:03 AM EDT [facility] Blood, Urine Negative Negative LAB URINALYSIS - AUTOMATED METHOD 06/12/2023 11:03 AM EDT [facility] Bilirubin, Urine Negative Negative LAB URINALYSIS - AUTOMATED METHOD 06/12/2023 11:03 AM EDT [facility] Urobilinogen, Urine 0.2 0.2 to 1.0 mg/dL LAB URINALYSIS - AUTOMATED METHOD 06/12/2023 11:03 AM EDT [facility] Leukocytes, Urine Trace(A) Negative LAB URINALYSIS - AUTOMATED METHOD 06/12/2023 11:03 AM EDT [facility] Nitrite, Urine Negative Negative LAB URINALYSIS - AUTOMATED METHOD 06/12/2023 11:03 AM EDT [facility] RBC, Urine <1 0 to 3 /HPF 06/12/2023 11:03 AM EDT [facility] Comment:This result was prev iously suppressed from the chart. WBC, Urine 0 - 5 0 to 5 /HPF 06/12/2023 11:03 AM EDT [facility] Comment:This result was prev iously suppressed from the chart. Squamous Epithelial Cells 6 - 10(A) 0 to 5 /HPF 06/12/2023 11:03 AM EDT [facility] Comment:This result was prev iously suppressed from the chart. Hyaline Casts 0 - 2 0 to 5 /LPF 06/12/2023 11:03 AM EDT [facility] Comment:This result was prev iously suppressed from the chart. Bacteria, Urine Present Negative 06/12/2023 11:03 AM EDT [facility] Comment:This result was prev iously suppressed from the chart. Granular Casts Present Absent 06/12/2023 11:03 AM EDT [facility] Comment:This result was prev iously suppressed from the chart. Urine Urine specimen obtained by clean catch procedure / Unknown Non-blood Collection / Unknown 06/12/2023 10:41 AM EDT 06/12/2023 10:50 AM EDT Narrative [facility] - 06/12/2023 11:03 AM EDT Performed by manual method us Benjamin Munguia MD LAB URINE ORDERABLES Final Resu lt [facility] [address] [place] [address] documented in this encounter Visit Diagnoses Diagnosis Abdominal pain, epigastric- Primary documented in this encounter Administered Medications Inactive Administered Medications - up to 3 most recent administrations Medication Order MAR Action Action Date Dose Rate Site lactated Ringer's infusion 1,000 mL 1,000 mL, Intravenous, Once, 1 dose, On Thu06/12/23 at 0915, STAT New Bag 06/12/2023 11:26 AM EDT 1,000 mL morphine PF 4 mg 4 mg, Intravenous, Once, 1 dose, On Thu06/12/23 at 1025, STAT Given 06/12/2023 11:44 AM EDT 4 mg ondansetron (Zofran) injection 4 mg 4 mg, Intravenous, Once, 1 dose, On Thu06/12/23 at 0915, STAT Given 06/12/2023 11:44 AM EDT 4 mg documented in this encounter Active and Recently Administered Medications Times are shown in EDT. Scheduled Medication Order 06/10/2023 06/11/2023 06/12/2023 acetaminophen (Tylenol) tablet 1,000 mg 1,000 mg, Oral, Once, 1 dose, On Thu06/12/23 at 0915, STAT 1144 (Not Given - Pr ovider: Sherrill Angel RN - Reason: Patient/family refused) lactated Ringer's infusion 1,000 mL (COMPLETED) 1,000 mL, Intravenous, Once, 1 dose, On Thu06/12/23 at 0915, STAT 1126 (New Bag - Prov ider: Dipika Ball RN - Comment: inability to obtain PIV access)1219 (Stopped - Provider: Sherrill Angel RN) morphine PF 4 mg (COMPLETED) 4 mg, Intravenous, Once, 1 dose, On Thu06/12/23 at 1025, STAT 1144 (Given - Provid er: Sherrill Angel RN - Comment: difficult IV access MD aware) ondansetron (Zofran) injection 4 mg (COMPLETED) 4 mg, Intravenous, Once, 1 dose, On Thu06/12/23 at 0915, STAT 1144 (Given - Provid er: Sherrill Angel RN - Comment: difficult IV access MD aware) documented in this encounter Additional Health Concerns Assessment Noted Time A fall risk assessment has been complete d for the patient 11/21/2020 2:30 PM EDT A Body Mass Index follow-up plan has been documented for the patient 04/14/2023 2:24 PM EST documented as of this encounter Care Teams Packing Room Worker Relationship Specialty Start Date End Date Citlali Marquez, CIRCUIT DESIGN ENGINEER [address] [place] [address] PCP - General Family Medicine 03/26/23 10/19/23 documented as of this encounter
--- OUTSIDE RECORDS SUMMARY | 2024-02-03 15:12 | XMS_ITS | Encounter Summary ---
Author Organization [facility] Address [address] [place] [address] Care Team Providers Care Jersey Knitter Name Role Phone SelmerCitlali lowe Gilberto ORELLANA Primary Care Provider [phone] Reason for Referral * Consultation (Urgent) - Authorized Specialty Diagnoses / Procedures Referred By Contac t Referred To Contact PMV Diagnoses , location unknown Mireya Vo PA [address] [place] [address] Phone: tel: fax: [address] [address] Phone: tel: Referral ID Status Reason Start Date Expiration Date Visits Requested Visits Authorized [id number] Authorized Specialty Services Required 06/04/2023 12/03/2024 1 1 * Consultation (Urgent) - Authorized Specialty Diagnoses / Procedures Referred By Contac t Referred To Contact Obstetrics and Gynecology Diagnoses Acute LUQ pain , location unknown Mireya Vo PA [address] [place] [address] Phone: tel: fax: Referral ID Status Reason Start Date Expiration Date Visits Requested Visits Authorized [id number] Authorized Specialty Services Required 06/04/2023 12/03/2024 1 1 Reason for Visit * Reason Comments Abdominal Pain Encounter Details Date Type Department Care Team (Late st Contact Info) Description 06/04/2023 9:01 AM EDT - 06/04/2023 2:28 PM EDT Emergency [facility] [place] [address] Acute LUQ pain (Primary Dx); , location unknown; Left against medical advice Discharge Disposition: Left Against Medical Advice Social [...] drink first t caleb in the morning ([employer]ST) to steady your nerves or to [...] Sign Reading Time Taken Comments Blood Pressure 146/91 06/04/2023 12:37 PM EDT Pulse 80 06/04/2023 12:37 PM EDT Temperature 36.8 ??C (98.3 ??F) 06/04/2023 12:37 PM E DT Respiratory Rate 20 06/04/2023 12:37 PM EDT Oxygen Saturation 95% 06/04/2023 12:37 PM EDT Inhaled Oxygen Concentration - - Weight 96.2 kg (212 lb 1.3 oz) 06/04/2023 10:28 AM EDT Height 165.1 cm (5' 5 ) 06/04/2023 10:28 AM EDT Body Mass Index 35.29 06/04/2023 10:28 AM EDT documented in this [...] symptoms continue 1 each 02/23/2023 4 pancrelipase, Slz-Gbif-Kzqb, (Creon) [id number] units capsule Take 1 capsule by mouth [...] Miscellaneous Notes * ED Provider Notes - Mireya Vo PA - 06/04/2023 8:54 AM EDT Images from the original note were not included. - HPI Chief Complaint Patient presents with Abdominal Pain Lila Mcnally is a 37 y.o. female who is well known to the ER with PMH chronic abdominal pain, pancreatitis, obesity, GERD, fibromyalgia who presents to the Emergency Department with complaints ofAbdominal Pain. Reports her typical LUQ pain, nonbloody vomiting and nonbloody diarrhea. Says has run out of antiemetics and oxycodone and was doing well for a month or so. Reports has intake pain clinic appt in mid June. Denies injury, fever, cardiopulmonary symptoms, symptoms, constipation, . No data recorded Patient History Past Medical History: Diagnosis Date Anxiety Arthritis Depression Fibromyalgia Gastric erosions 04/19/2021 GERD (gastroesophageal reflux disease) Hypertension Intentional overdose ([facility]) 12/20/2021 Nicotine dependence Obesity Pancreatitis [...] too. Review of Systems Review of Systems Gastrointestinal: Positive for abdominal pain, diarrhea, nausea and vomiting. All other systems reviewed and are negative. Physical Exam ED Triage Vitals [06/04/23 0901] Temp Heart Rate Resp BP 36.8 ??C (98.2 ??F) 100 16 (!) 157/103 SpO2 Temp Source Heart Rate Source Patient Position 100 % Oral -- -- BP Location FiO2 (%) -- -- Physical Exam Constitutional: Appearance: She is well-developed. She is not diaphoretic. HENT: Head: Normocephalic and atraumatic. Eyes: [...] Course & MDM ED Course as of 06/04/23 1641 Annabel Jun 04, 2023 1055 Lactic acid, venous Within normal limits. [AB] 1110 CBC w/diff(!) No leukocytosis [AB] 1134 SARS-CoV-2 COVID-19/Influenza A,B Neg [AB] 1134 Magnesium Within normal limits. [AB] 1134 Phosphorus Within normal limits. [AB] 1134 Lipase(!) 18 [AB] 1135 CMP(!) No JYOTSNA, no gap, no biliary obstructive pattern, hypokalemia 3.1 [AB] 1342 hCG, quantitative, (!) 22k [AB] ED Course User Index [AB] Mireya Vo PA Clinical Impressions as of 06/04/23 1641 Acute LUQ pain , location unknown Left against medical advice - Medical Decision Making In summary this is a 37 y.o. female who presented to the ED with complaints of Abdominal Pain. Patient's chronic conditions include chronic abdominal pain which is not at goal and is contributing to her risk of morbidity and mortality. Per discharge summary chart review in Mar, patient was admitted for a few days for the same symptoms and was noted to have a pain clinic appt on the -patient tells me her intake appt is not until June-perhaps the clinic rescheduled her appt. Her social determinants of health include no established outpatient pain treatment team. Concern today for chronicabdominal pain, gastritis, GERD, pancreatitis, volum depletion, MSK pain, anxiety, volum depletion,. We will attempt to limit any CT scans due to her history of frequent CTs which could increase her future risk of neoplasm. Received IV bolus, IV dilaudid, compazine. Labs showed no biliaryobstructive process, no JYOTSNA, no pancreatitis, neg COVID19/flu, but rapid HCG was positive-will add on quantitative. Quant was 22k. I discussed with patient about her positive test and that we must ascertain location and she initially agreed for US. She says she is uncertain of LMP but has no lower abdominal pain and no vaginal bleeding. ABO/Rh ordered as well. Patient later said that she must leave to package pick up her kids. I again explained that she may have a life threatening and surgical emergency and by leaving today without location of , she risks and permanent disability and she expressed understanding and demonstrates decision making capacity. She wishesto continue with her patient directed discharge. Patient prescribed doxylamine and pyridoxine, to stay hydrated, avoid toxins, use vitamins, and referred to OB. I additionally referred her to [facility] discharge clinic for close follow up to further characterize location while awaiting OB intake appt. She was advised that she may return to the ER at any time for the remainder of her workup and certainly if her symptoms worsen or do not improve. UA results pending at this time. Amount and/or Complexity of Data Reviewed External Data Reviewed: notes. Labs: ordered. Decision-making details documented in ED Course. Risk Prescription drug management. Parenteral controlled substances. Diagnosis or treatment significantly limited by social determinants of health. ED Prescriptions Medication Sig Dispense Start Date End Date Auth. Provider doxylamine (Unisom) 25 MG tablet Take 1 tablet (25 mg) by mouth at night if needed for nausea. 30 tablet 06/04/2023 -- Mireya Vo PA pyridoxine (B-6) 50 MG tablet Take 1 tablet (50 mg) by mouth 1 (one) time each day if needed (nausea, vomiting). 30 tablet 06/04/2023 -- Mireya Vo PA Disposition Patient Directed Discharge Follow-Ups: Follow up with [facility] (Primary Care) Discharge Orders Discharge Ambulatory referral to Obstetrics / Gynecology Authorized Discharge Ambulatory referral - High Risk Authorized Sign Off Checklist Clinical Impression: Complete ED Disposition: Complete - Mireya Vo PA 06/04/23 1640 Mireya Vo PA 06/04/23 1641 Cosigned by Sammy Franco MD at 06/05/2023 5:54 PM EDT Associated attestation - Sammy Franco MD - 06/05/2023 5:54 PM EDT The patient was seen only by Advanced Practice Provider (AJAY). * ED Triage Notes - Andrew Gonzalez RN - 06/04/2023 8:54 AM EDT Pt with c/o mid to left upper abd pain with n/v/d. Pt with hx of pancreatitis, states feels like flare. documented in this encounter Plan of Treatment Scheduled Referrals Name Type Priority Associated Diagnoses Order Schedule Discharge Ambulatory referral to Obstetrics / Gynecology Outpatient Referral Routine Acute LUQ pain , location unknown Expected: 06/04/2023 (Approximate), Expires: 12/03/2024 Discharge Ambulatory referral - High Risk Outpatient Referral Routine , location unknown Expected: 06/04/2023 (Approximate), Expires: 12/03/2024 documented as of this encounter Procedures Procedure Name Priority Date/Time Associated Diagnosis Comments URINALYSIS WITH REFLEX MICROSCOPIC STAT 06/04/2023 2:16 PM EDT URINE GUNTER PANEL STAT 06/04/2023 2:16 PM EDT URINALYSIS WITH REFLEX MICROSCOPIC STAT 06/04/2023 2:16 PM EDT SARS COV2 COVID 19/INFLUENZA A, B STAT 06/04/2023 10:48 AM EDT LACTATE, VENOUS STAT 06/04/2023 10:45 AM EDT CBC WITH AUTO DIFFERENTIAL STAT 06/04/2023 10:45 AM EDT TEST QUALITATIVE PLASMA STAT 06/04/2023 10:45 AM EDT HCG, QUANTITATIVE STAT Add-on 06/04/2023 10: 45 AM EDT PHOSPHORUS, PLASMA STAT 06/04/2023 10 :45 AM EDT MAGNESIUM, PLASMA STAT 06/04/2023 10: 45 AM EDT LIPASE, PLASMA STAT 06/04/2023 10:45 AM EDT COMPREHENSIVE METABOLIC PANEL, PLASMA STAT 06/04/2023 10:45 AM EDT documented in this encounter Results * Urine Gunter Panel (06/04/2023 2:16 PM EDT) Extra Reflex urine culture not indicated 06/04/2023 11:01 PM EDT [facility] Comment: Previously prelim verified as Specimen evaluation in progress on 06/04/2023 at 1601 EDT. Previously prelim verified as Specimen evaluation in progress on 06/04/2023 at 1701 EDT. Previously prelim verified as Specimen evaluation in progress on 06/04/2023 at 1801 EDT. Previously prelim verified as Specimen evaluation in progress on 06/04/2023 at 1901 EDT. Previously prelim verified as Specimen evaluation in progress on 06/04/2023 at 2001 EDT. Previously prelim verified as Specimen evaluation in progress on 06/04/2023 at 2101 EDT. Previously prelim verified as Specimen evaluation in progress on 06/04/2023 at 2201 EDT. Urine Urine specimen obtained by clean catch procedure / Unknown Non-blood Collection / Unknown 06/04/2023 2:16 PM EDT 06/04/2023 2:19 PM EDT us Mireya NAJERA LAB URINE ORDERABLES Final Resul t [facility] [address] [place] [address] * (ABNORMAL) Urinalysis with reflex microscopic (Culture NOT Included) (06/04/2023 2:16 PM EDT) Color, Urine Yellow LAB URINALYSIS - AUTOMATED METHOD 06/04/2023 2:22 PM EDT [facility] Clarity, Urine Cloudy LAB URINALYSIS - AUTOMATED METHOD 06/04/2023 2:22 PM EDT [facility] Spec Maynard, Urine 1.024 <=1.005 to >=1.030 LAB URINALYSIS - AUTOMATED METHOD 06/04/2023 2:22 PM EDT [facility] pH, Urine 6.5 4.5 to 8 LAB URINALYSIS - AUTOMATED METHOD 06/04/2023 2:22 PM EDT [facility] Protein, Urine Trace(A) Negative mg/dL LAB URINALYSIS - AUTOMATED METHOD 06/04/2023 2:22 PM EDT [facility] Glucose, Urine Negative Negative mg/dL LAB URINALYSIS - AUTOMATED METHOD 06/04/2023 2:22 PM EDT [facility] Ketones, Urine 40(A) Negative mg/dL LAB URINALYSIS - AUTOMATED METHOD 06/04/2023 2:22 PM EDT [facility] Blood, Urine Negative Negative LAB URINALYSIS - AUTOMATED METHOD 06/04/2023 2:22 PM EDT [facility] Bilirubin, Urine Negative Negative LAB URINALYSIS - AUTOMATED METHOD 06/04/2023 2:22 PM EDT [facility] Urobilinogen, Urine 1.0 0.2 to 1.0 mg/dL LAB URINALYSIS - AUTOMATED METHOD 06/04/2023 2:22 PM EDT [facility] Leukocytes, Urine Negative Negative LAB URINALYSIS - AUTOMATED METHOD 06/04/2023 2:22 PM EDT [facility] Nitrite, Urine Negative Negative LAB URINALYSIS - AUTOMATED METHOD 06/04/2023 2:22 PM EDT [facility] Urine Urine specimen obtained by clean catch procedure / Unknown Non-blood Collection / Unknown 06/04/2023 2:16 PM EDT 06/04/2023 2:19 PM EDT us Mireya NAJERA LAB URINE ORDERABLES Final Resul t [facility] [address] [place] [address] * SARS-CoV-2 COVID-19/Influenza A,B (06/04/2023 10:48 AM EDT) SARS CoV-2/COVID-19 RNA PCR Result Not Detected Not Detected 06/04/2023 11:14 AM EDT [facility] Comment:For In Vitro Diagnos tic Use Influenza A Virus PCR Result Not Detected Not Detected 06/04/2023 11:14 AM EDT [facility] Comment:For In Vitro Diagnos tic Use Influenza B Virus PCR Result Not Detected Not Detected 06/04/2023 11:14 AM EDT [facility] Comment:For In Vitro Diagnos tic Use Swab Nasopharyngeal structure / Unknown Non-blood Collection / Unknown 06/04/2023 10:48 AM EDT 06/04/2023 10:51 AM EDT Narrative [facility] - 06/04/2023 11:14 AM EDT This test was performed using the Slime [...] MICROBIOLOGY - GENERAL ORDER STACIA Final Result Performing Organization Address City/[facility]/ZIP Co de Phone Number [facility] [address] [place] [address] * (ABNORMAL) hCG, quantitative, (06/04/2023 10:45 AM EDT) hCG, Total Beta 22,487(H) <5 mIU/mL 06/04/2023 1:37 PM EDT [facility] Blood Venous blood specimen / Unknown Venipuncture / Unknown 06/04/2023 10:45 AM EDT 06/04/2023 10:51 AM EDT Narrative [facility] - 06/04/2023 1:37 PM EDT Patients: ? Normal Range Premenopausal [...] methods or kits cannot be used interchangeably. Mireya NAJERA LAB BLOOD ORDERABLES Final Resul t Performing Organization Address City/[facility]/ZIP Co de Phone Number [facility] [address] [place] [address] * (ABNORMAL) hCG qualitative (06/04/2023 10:45 AM EDT) Test Positive(A ) Negative 06/04/2023 11:28 AM EDT [facility] Blood Venous blood specimen / Unknown Venipuncture / Unknown 06/04/2023 10:45 AM EDT 06/04/2023 10:51 AM EDT Narrative [facility] - 06/04/2023 11:28 AM EDT Positive, greater than 6 mIU/hCG mL. us Mireya NAJERA LAB BLOOD ORDERABLES Final Resul t Performing Organization Address City/[facility] Co de Phone Number [facility] [address] [place] [address] * Lactic acid, venous (06/04/2023 10:45 AM EDT) Pathologist [facility] Lactate, Venous, Whole Blood 0.7 0.5 - 2.2 mmol/L LAB HEMATOLOGY METHOD 06/04/2023 10:54 AM EDT [facility] Blood Venous blood specimen / Unknown Venipuncture / Unknown 06/04/2023 10:45 AM EDT 06/04/2023 10:53 AM EDT us Mireya NAJERA LAB BLOOD ORDERABLES Final Resul t Performing Organization Address [facility] de Phone Number [facility] [address] [place] [address] * (ABNORMAL) Lipase (06/04/2023 10:45 AM EDT) Pathologist [facility] Lipase, Plasma 18(L) 19 - 63 U/L 06/04/2023 11:28 AM EDT [facility] Blood Venous blood specimen / Unknown Venipuncture / Unknown 06/04/2023 10:45 AM EDT 06/04/2023 10:51 AM EDT us Mireya NAJERA LAB BLOOD ORDERABLES Final Resul t Performing Organization Address City/[facility] de Phone Number [facility] [address] [place] [address] * Phosphorus (06/04/2023 10:45 AM EDT) Pathologist [facility] Phosphorus, Plasma 3.4 2.5 - 4.5 mg/dL 06/04/2023 11:28 AM EDT [facility] Blood Venous blood specimen / Unknown Venipuncture / Unknown 06/04/2023 10:45 AM EDT 06/04/2023 10:51 AM EDT us Mireya NAJERA LAB BLOOD ORDERABLES Final Resul t Performing Organization Address City/[facility]/ZIP Co de Phone Number [facility] [address] [place] [address] * Magnesium (06/04/2023 10:45 AM EDT) Magnesium, Plasma 2.0 1.9 - 2.4 mg/dL 06/04/2023 11:28 AM EDT [facility] Blood Venous blood specimen / Unknown Venipuncture / Unknown 06/04/2023 10:45 AM EDT 06/04/2023 10:51 AM EDT us Mireya NAJERA LAB BLOOD ORDERABLES Final Resul t Performing Organization Address [facility] de Phone Number [facility] [address] [place] [address] * (ABNORMAL) CMP (06/04/2023 10:45 AM EDT) Glucose, Plasma 102(H) 74 - 99 mg/dL 06/04/2023 11:28 AM EDT [facility] BUN, Plasma 7 7 - 21 mg/dL 06/04/2023 11:28 AM EDT [facility] Creatinine, Plasma 0.45(L) 0.60 - 1.10 mg/dL 06/04/2023 11:28 AM EDT [facility] BUN/Creatinine Ratio 16 06/04/2023 11:28 AM EDT [facility] Sodium, Plasma 131(L) 136 - 145 mmol/L 06/04/2023 11:28 AM EDT [facility] Potassium, Plasma 3.1(L) 3.7 - 4.8 mmol/L 06/04/2023 11:28 AM EDT [facility] Chloride, Plasma 98 97 - 107 mmol/L 06/04/2023 11:28 AM EDT [facility] CO2, Plasma 21(L) 22 - 29 mmol/L 06/04/2023 11:28 AM EDT [facility] Anion Gap 12 6 - 16 mmol/L 06/04/2023 11:28 AM EDT [facility] Total Calcium, Plasma 9.4 8.9 - 10.2 mg/dL 06/04/2023 11:28 AM EDT [facility] Total Protein 7.6 6.3 - 7.9 g/dL 06/04/2023 11:28 AM EDT [facility] Albumin, Plasma 4.5 3.5 - 5.2 g/dL 06/04/2023 11:28 AM EDT [facility] AST, Plasma 21 10 - 35 U/L 06/04/2023 11:28 AM EDT [facility] ALT, Plasma 27 10 - 35 U/L 06/04/2023 11:28 AM EDT [facility] Alkaline Phosphatase, Plasma 87 35 - 104 U/L 06/04/2023 11:28 AM EDT [facility] Total Bilirubin, Plasma 0.3 0.2 - 1.1 mg/dL 06/04/2023 11:28 AM EDT [facility] eGFRcr 128.0 mL/min/1.7 3m*2 06/04/2023 11:28 AM EDT [facility] Comment:Reported eGFRcr in m L/min/1.73m2 is based the CKD-EPI 2020 equation that does not use a race coefficient. Blood Venous blood specimen / Unknown Venipuncture / Unknown 06/04/2023 10:45 AM EDT 06/04/2023 10:51 AM EDT us Mireya NAJERA LAB BLOOD ORDERABLES Final Resul t [facility] [address] [place] [id number] * (ABNORMAL) CBC w/diff (06/04/2023 10:45 AM EDT) WBC Count 7.12 3.70 - 10.30 10*3/uL LAB HEMATOLOGY METHOD 06/04/2023 10:55 AM EDT [facility] RBC Count 4.79 3.90 - 5.20 10*6/uL LAB HEMATOLOGY METHOD 06/04/2023 10:55 AM EDT [facility] HGB 13.0 11.2 - 15.7 g/dL LAB HEMATOLOGY METHOD 06/04/2023 10:55 AM EDT [facility] HCT 38.7 34.0 - 45.0 % LAB HEMATOLOGY METHOD 06/04/2023 10:55 AM EDT [facility] Platelet Count 246 155 - 369 10*3/uL LAB HEMATOLOGY METHOD 06/04/2023 10:55 AM EDT [facility] MCV 81 79 - 98 fL LAB HEMATOLOGY METHOD 06/04/2023 10:55 AM EDT [facility] MCH 27.1 26.0 - 32.0 pg LAB HEMATOLOGY METHOD 06/04/2023 10:55 AM EDT [facility] MCHC 33.6 30.7 - 35.5 g/dL LAB HEMATOLOGY METHOD 06/04/2023 10:55 AM EDT [facility] RDW 15.4(H) 11.5 - 14.5 % LAB HEMATOLOGY METHOD 06/04/2023 10:55 AM EDT [facility] MPV 9.5 8.8 - 12.5 fL LAB HEMATOLOGY METHOD 06/04/2023 10:55 AM EDT [facility] nRBC 0.0 <=0.0 per 100 WBCs LAB HEMATOLOGY METHOD 06/04/2023 10:55 AM EDT [facility] Differential Type Automated LAB HEMATOLOGY METHOD 06/04/2023 10:55 AM EDT [facility] Neutrophils % 70.0 % LAB HEMATOLOGY METHOD 06/04/2023 10:55 AM EDT [facility] Lymphocytes % 23.0 % LAB HEMATOLOGY METHOD 06/04/2023 10:55 AM EDT [facility] Monocytes % 5.0 % LAB HEMATOLOGY METHOD 06/04/2023 10:55 AM EDT [facility] Eosinophils % 1.0 % LAB HEMATOLOGY METHOD 06/04/2023 10:55 AM EDT [facility] Basophils % 0.0 % LAB HEMATOLOGY METHOD 06/04/2023 10:55 AM EDT [facility] Immature Granulocytes % 1.0 % LAB HEMATOLOGY METHOD 06/04/2023 10:55 AM EDT [facility] Neutrophils Absolute 4.98 1.60 - 6.10 10*3/uL LAB HEMATOLOGY METHOD 06/04/2023 10:55 AM EDT [facility] Lymphocytes Absolute 1.64 1.20 - 3.90 10*3/uL LAB HEMATOLOGY METHOD 06/04/2023 10:55 AM EDT [facility] Monocytes Absolute 0.36 0.30 - 0.90 10*3/uL LAB HEMATOLOGY METHOD 06/04/2023 10:55 AM EDT [facility] Eosinophils Absolute 0.07 0.00 - 0.50 10*3/uL LAB HEMATOLOGY METHOD 06/04/2023 10:55 AM EDT [facility] Basophils Absolute 0.03 0.00 - 0.10 10*3/uL LAB HEMATOLOGY METHOD 06/04/2023 10:55 AM EDT [facility] Immature Granulocytes Absolute 0.04 0.00 - 0.06 10*3/uL LAB HEMATOLOGY METHOD 06/04/2023 10:55 AM EDT [facility] Blood Venous blood specimen / Unknown Venipuncture / Unknown 06/04/2023 10:45 AM EDT 06/04/2023 10:51 AM EDT Narrative [facility] - 06/04/2023 10:55 AM EDT Therapeutic decision making should be based on absolute values, rather than percentages. us Mireya NAJERA LAB BLOOD ORDERABLES Final Resul t [facility] [address] [place] [address] documented in this encounter Visit Diagnoses Diagnosis Acute LUQ pain- Primary , location unknown Left against medical advice documented in this encounter Administered Medications Inactive Administered Medications - up to 3 most recent administrations Medication Order MAR Action Action Date Dose Rate Site famotidine PF (Pepcid) injection 20 mg 20 mg, Intravenous, Once, 1 dose, On Annabel 06/04/23 at 0955, STAT Given 06/04/2023 10:47 AM EDT 20 mg HYDROmorphone (Dilaudid) injection 0.5 mg 0.5 mg, Intravenous, Once, 1 dose, On Annabel 06/04/23 at 0955, Routine Given 06/04/2023 10:46 AM EDT 0.5 mg HYDROmorphone (Dilaudid) injection 0.5 mg 0.5 mg, Intravenous, Once, 1 dose, On Annabel 06/04/23 at 1135, Routine Given 06/04/2023 11:56 AM EDT 0.5 mg lactated Ringer's infusion 1,000 mL 1,000 mL, Intravenous, Once, 1 dose, On Annabel 06/04/23 at 0955, STAT New Bag 06/04/2023 10:47 AM EDT 1,000 mL ondansetron (Zofran) injection 4 mg 4 mg, Intravenous, Once, 1 dose, On Annabel 06/04/23 at 0955, STAT Given 06/04/2023 10:47 AM EDT 4 mg documented in this encounter Active and Recently Administered Medications Times are shown in EDT. Scheduled Medication Order 06/02/2023 06/03/2023 06/04/2023 famotidine PF (Pepcid) injection 20 mg (COMPLETED) 20 mg, Intravenous, Once, 1 dose, On Annabel 06/04/23 at 0955, STAT 1047 (Given - Provid er: Carlton Sr RN) HYDROmorphone (Dilaudid) injection 0.5 mg (COMPLETED) 0.5 mg, Intravenous, Once, 1 dose, On Annabel 06/04/23 at 0955, Routine 1046 (Given - Provid er: Carlton Sr RN) HYDROmorphone (Dilaudid) injection 0.5 mg (COMPLETED) 0.5 mg, Intravenous, Once, 1 dose, On Annabel 06/04/23 at 1135, Routine 1156 (Given - Provid er: Carlton Sr RN) lactated Ringer's infusion 1,000 mL (COMPLETED) 1,000 mL, Intravenous, Once, 1 dose, On Annabel 06/04/23 at 0955, STAT 1047 (New Bag - Prov ider: Carlton Sr RN) ondansetron (Zofran) injection 4 mg (COMPLETED) 4 mg, Intravenous, Once, 1 dose, On Annabel 06/04/23 at 0955, STAT 1047 (Given - Provid er: Carlton Sr RN) documented in this encounter Additional Health [...] documented as of this encounter Care Teams Jersey Knitter Relationship Specialty Start Date End Date Citlali Marquez APRN [facility] [place] [phone] PCP - General Family Medicine 03/26/23 10/19/23 documented as of this encounter
--- OUTSIDE RECORDS SUMMARY | 2024-02-03 15:12 | XMS_ITS | Encounter Summary ---
Author Organization [facility] Address [address] [place] [address] Care Team Providers Care Business Analytics Intern Name Role Phone JimmyCitlali lowe Gilberto ORELLANA Primary Care Provider [phone] Encounter Details Date Type Department Care Team (Latest Contact Info) Description 06/12/2023 Travel Social History Tobacco Use Types Packs/Day [...] drink first t caleb in the morning ([employer]) to steady your nerves or to get [...] documented as of this encounter Care Teams Business Analytics Intern Relationship Specialty Start Date End Date Citlali Marquez APRN [facility] [place] [phone] PCP - General Family Medicine 03/26/23 10/19/23 documented as of this encounter
--- OUTSIDE RECORDS SUMMARY | 2024-02-03 15:13 | XMS_ITS | Encounter Summary ---
Author Organization [facility] Address [address] [place] [address] Care Team Providers Care Field Applications Specialist Name Role Phone JimmyCitlali lowe Gilberto ORELLANA Primary Care Provider [phone] Encounter Details Date Type Department Care Team (Latest Contact Info) Description 03/29/2023 Travel Social History Tobacco Use Types Packs/Day Years Used Date Smoking Tobacco: Every Day Cigarettes 0.5 20 Smokeless Tobacco: Never Alcohol Use Standard Drinks/Week Comments Not Currently 0 (1 standard drink = 0.6 oz pure alcohol) was drinking heavily x 7yrs up to a few months ago; no ETOH in a few months Humiliation, Afraid, Rape, and Kick questionnair e Answer Date Recorded Within the last year, have y ou been afraid of your partner or ex-partner? No 02/20/2023 Within the last year, have y ou been humiliated or emotionally abused in other ways by your partner or ex-partner? No Within the last year, have y ou been kicked, hit, slapped, or otherwise physically hurt by your partner or ex-partner? No 02/20/2023 Within the last year, have y ou been raped or forced to have any kind of sexual activity by your partner or ex-partner? No 02/20/2023 PHQ-2 Answer Date Recorded Patient Health Questionnaire-2 Score 2 11/21/2020 Hunger Vital Sign Answer Date Recorded Within the past 12 months, y ou worried that your food would run out before you got the money to buy more. Never true 02/21/20 23 Within the past 12 months, t he food you bought just didn't last and you didn't have money to get more. Never true 02/20/2023 PRAPARE - Transportation Answer Date Re corded In the past 12 months, has l ack of transportation kept you from medical appointments or from getting medications? No 01/24 In the past 12 months, has l ack of transportation kept you from meetings, work, or from getting things needed for daily living? No 02/20/2023 Housing Stability Vital Sign Answer Dennis e Recorded In the last 12 months, was t here a time when you were not able to pay the mortgage or rent on time? No 02/20/2023 [address] of [address] Lived in the Last Year Not on f ile 02/20/2023 In the last 12 months, was t here a time when you did not have a steady place to sleep or slept in a intermediate (including now)? No 02/20/2023 CAGE ASSESSMENT Answer Date Recorded Due to the following: Medical status 03/18/2023 Maximum number of drinks you had on a given occasion in the last month? 5 or more drinks 03/18/2023 How many alcoholic Beverages do you typically drink in a week? 15 or more per week 03/18/2023 Have you ever felt you shoul d CUT down on your drinking? 0 03/18/2023 Have you been ANNOYED by peo ple criticizing your drinking? 0 03/18/2023 Have you felt GUILTY about your drinking? 0 03/18/2023 Have you had a drink first t caleb in the morning ([employer]) to steady your nerves or to get rid of a hangover? 0 03/18/2023 CAGE Questionnaire Score 0 024 Utilities Answer Date Recorded In the past 12 months has th e electric, gas, oil, or water company threatened to shut off services in your home? No 02/20/2023 Comments No Sex and Gender Information Value Date Recorded Sex Assigned at Female 11/30/2020 9:14 AM EDT Legal Sex Female 8:12 PM EDT Gender Identity Female 11/30/2020 9:14 AM EDT Sexual Orientation Straight 11/30/2020 9: 14 AM EDT documented as of this encounter Plan of Treatment Not on file documented as of this encounter Visit Diagnoses Not on filedocumented in this encounter Additional Health Concerns Assessment Noted Time A fall risk assessment has been complete d for the patient 11/21/2020 2:30 PM EDT A Body Mass Index follow-up plan has been documented for the patient 03/26/2023 12:22 PM EST documented as of this encounter Care Teams Field Applications Specialist Relationship Specialty Start Date End Date Citlali Marquez, ESTEBAN [address] [place] [address] PCP - General Family Medicine 03/26/23 10/19/23 documented as of this encounter
--- OUTSIDE RECORDS SUMMARY | 2024-02-03 15:13 | XMS_ITS | Encounter Summary ---
Author Organization Healthcare Address [address] [place] [address] Care Team Providers Care Cheese Tester Name Role Phone Citlali Marquez APRN Primary Care Provider [phone] Reason for Referral * Consultation (Routine) - Authorized Specialty Diagnoses / Procedures Referred By Contac t Referred To Contact Addiction Medicine Diagnoses Uncomplicated opioid dependence (CMS/HCC) Tom Hernandez MD [address] [place] [address] Phone: tel: fax: [address] [address] Phone: tel: fax: Referral ID Status Reason Start Date Expiration Date V isits Requested Visits Authorized [id number] Authorized 03/30/2023 09/28/2024 1 1 Reason for Visit * Reason Comments Abdominal Pain Encounter Details Date Type Department Care Team ([facility] st Contact Info) Description 03/30/2023 8:06 PM EST - 03/30/2023 10:26 PM EST Emergency [facility] Emergency Department [address] [place] [address] Tom Hernandez MD [address] [place] [address] Left upper quadrant abdominal pain (Primary Dx); Uncomplicated opioid dependence (CMS/HCC) Discharge Disposition: Home or Self Care Social [...] slept in a detention (including now)? 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-PRINCIPAL CONSULTANT) to steady your nerves or to get rid of a hangover? 0 03/18/2023 CAGE Questionnaire Score 0 024 Utilities Answer Date Recorded In the past 12 months has e [employer], gas, oil, or water company threatened to [...] Sign Reading Time Taken Comments Blood Pressure 137/89 03/30/2023 10:06 PM EST Pulse 60 03/30/2023 10:06 PM EST Temperature 36.8 ??C (98.3 ??F) 03/30/2023 10:[address] Respiratory Rate 18 03/30/2023 10:06 PM EST Oxygen Saturation 95% 03/30/2023 10:06 PM EST Inhaled Oxygen Concentration - - Weight 105 kg (232 lb) 03/30/2023 5:48 PM EST Height - - Body Mass Index 38.61 03/26/2023 11:09 AM EST documented in this encounter Discharge Instructions * Discharge Instructions* Beltran Ribera MD - 03/30/2023 10:09 PM EST You have been evaluated in the Emergency Department. Your evaluation was not suggestive of any emergent condition requiring medical intervention at this time. It is important to be aware of any new or worsening symptoms, as some problems may take longer to appear. Please follow-up with [address] [place] [address] clinic when they call you to schedule an appointment. They may be able to offer you a medication that will help address your pain without using a medication that develops a dependence over time Please follow up with your primary care physician within one to two days. Return to the Emergency Department if you experience worsening pain, persistent fevers greater [id number], recurrent vomiting, lethargy, seizures, shortness of breath, or any other concerning symptoms. Thank you for choosing us for your care. * Attachments The following attachments cannot be sent through Care Everywhere. * What is Chronic Pain? - VIDEO (Tuvaluan) * Why Opioids Are Addictive - VIDEO (Tuvaluan) documented in this encounter Medications at Time of Discharge pantoprazole (Protonix) 40 MG EC tablet Take 1 tablet (40 mg) by mouth 1 (one) time each day. Do not crush, chew, or split. fluconazole (Diflucan) 150 MG tablet Take 2 tablets (300 mg) by mouth 1 (one) time each day for 9 doses. 18 tablet 03/25/2023 4 acetaminophen (Tylenol) 500 MG tablet Take 2 tablets (1,000 mg) by mouth every 6 (six) hours if needed for pain. 4 Aluminum & Magnesium Hydroxide (gi cocktail) Take 30 mL by mouth 4 (four) times a day if needed (Abdominal pain). 300 mL 2 03/25/2023 4 cholecalciferol (Vitamin D-3) 50 MCG (2000 UT) capsule Take 1 capsule (2,000 Units) by mouth 1 (one) time each day. 4 cyanocobalamin 1000 MCG tablet Take 1 tablet (1,000 mcg) by mouth 1 (one) time each day. 4 dicyclomine (Bentyl) 10 MG capsule Take 1 capsule (10 mg) by mouth every 6 (six) hours if needed (abdominal spasms). 30 capsule 03/25/2023 4 DULoxetine (Cymbalta) [address] capsule Take 1 capsule (60 mg) by mouth 1 (one) time each day. Do not crush or chew. 30 capsule 02/23/2023 4 famotidine (Pepcid) 20 MG tablet Take 1 tablet (20 mg) by mouth 2 (two) times a day if needed for heartburn. 4 ibuprofen 200 MG tablet Take 2-4 tablets (400-800 mg) by mouth 1 (one) time each day if needed for mild pain. 4 Lidocaine (HM Lidocaine Patch) 4 % patch Apply 1 patch topically 2 (two) times a day if needed (Left shoulder). 4 LORazepam (Ativan) 2 MG tablet Take 1 tablet (2 mg) by mouth 2 (two) times a day. 4 MELATONIN PO Take 10 mg by mouth at night if needed (sleep). 4 metoclopramide (Reglan) 5 MG tablet Take 1 tablet (5 mg) by mouth 3 (three) times a day before meals. 90 tablet 03/25/2023 4 naloxone (Kloxxado) 8 mg/0.1 mL nasal spray 1. Give 1 spray in nostril for no/slow breathing or cannot wake after opioid use 2. Call 911 3. Repeat in other nostril if symptoms continue 1 each 02/23/2023 4 nicotine (Nicoderm CQ) 21 MG/24HR patch Place 1 patch on the skin 1 (one) time each day at the same time. 4 oxyCODONE (Roxicodone) 10 MG immediate release tablet Take 2 tablets (20 mg) by mouth every 8 (eight) hours if needed for severe pain for up to 5 doses. 10 tablet 03/25/2023 4 pancrelipase, Kjn-Vhnt-Honr, (Creon) 6000-91079 units capsule Take 1 capsule by mouth 3 (three) times a day with meals. 4 pregabalin (Lyrica) 100 MG capsule Take 1 capsule (100 mg) by mouth 3 (three) times a day. 4 simethicone (Mylicon) 80 MG chewable tablet Chew 1 tablet (80 mg) 4 (four) times a day if needed for flatulence. 30 tablet 03/25/2023 4 documented as of this encounter Miscellaneous Notes * ED Provider Notes - Beltran Ribera MD - 03/30/2023 5:44 PM EST Images from the original note were not included. - HPI Chief Complaint Patient presents with Abdominal Pain PIT NOTE Lila Mcnally is a 37 y.o. female who presents to the ED with abdominal pain. Pt c/o abdominal pain and diarrhea for the last 3 days. Pt states the pain is worse in the top of her abdomen. Pt notes she has also vomited. Patient denies fever, chills, constipation and dysuria. Date/Time: 03/30/2023/7:44 PM Entered by Panfilo Beltran acting as scribe for Dr. Arellano. Attending Attestation: The documentation was recorded by Panfilo Beltran, acting as scribe in my presence at the time of the encounter and accurately reflects the service I personally performed. 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 by: Patient translator and interpreter used: No MAIN NOTE: This is a 37-year-old female with history of anxiety, fibromyalgia, depression, GERD, hypertension,alcohol related pancreatitis, chronic intractable pain, opioid dependent who presents emergency department with epigastric and left upper quadrant abdominal pain. Patient reports that she has having no new pains or symptoms tonight but that her chronic pain is flaring up. Denies any fevers, chills,constipation, dysuria, vomiting, headache, shortness of breath, chest No data recorded Patient History Past Medical History: Diagnosis Date Anxiety Arthritis Depression Fibromyalgia Gastric erosions 04/19/2021 GERD (gastroesophageal reflux disease) Hypertension Intentional overdose ([facility]) 12/20/2021 Nicotine dependence Obesity Pancreatitis [...] ago; no ETOH in a few months Drug use: Yes Types: Marijuana Comment: a few times a month 03-20-23 Immunization History Immunization History: not reviewed Allergies: [...] Systems Constitutional: Negative for chills and fever. Gastrointestinal: Positive for abdominal pain, diarrhea, nausea and vomiting. Negative for blood instool and constipation. Genitourinary: Negative for dysuria. Physical Exam ED Triage Vitals [03/30/23 1748] Temp Heart Rate Resp BP 36.6 ??C (97.9 ??F) 84 16 (!) 150/92 SpO2 Temp src Heart Rate Source Patient Position 97 % -- -- -- BP Location FiO2 (%) -- -- Physical Exam Constitutional: Appearance: Normal appearance. HENT: Head: Normocephalic and atraumatic. Eyes: Pupils: Pupils are equal, round, and reactive to light. Cardiovascular: Rate and Rhythm: Normal rate. Pulmonary: Effort: Pulmonary effort is normal. Abdominal: Palpations: Abdomen is soft. Tenderness: There is abdominal tenderness in the epigastric area and left upper quadrant. Neurological: General: No focal deficit present. Mental Status: She is alert and oriented to person, place, and time. Psychiatric: Mood and Affect: Mood normal. Behavior: Behavior normal. ED Course & MDM Clinical Impressions as of 03/31/23 0002 Left upper quadrant abdominal pain Uncomplicated opioid dependence (CMS/HCC) - Medical Decision Making Lila is a 37 y.o. female presenting with abdominal pain and diarrhea whose chronic conditions includes opioid dependence, which currently is not at goal therapy. This complicates their clinical picture because it may be exacerbating symptoms and increases the risk for morbidity. I reviewed prior records including her most recent ED note which documented patient was seen yesterday for similar complaints and had negative workup at that time. Based on patient's history and physical exam, my differential diagnosis included pancreatitis, opioid dependence, drug-seeking behavior, infection, metabolic derangement, JYOTSNA, . Ruling out the most morbid conditions drove my clinical assessment. Upon arrival patient is hemodynamically stable, afebrile, overall nontoxic appearing. Patient was given IV Zofran, oral Tylenol, IV Dilaudid, oral oxygen for symptomatic relief with relief of symptoms. Ordered urinalysis, CBC, CMP, test, lab. I considered the utility of obtaining CT Scan, but decided to forgo this because the patient or family does not think it is necessary. Laboratory workup interpreted independently and significant for non concerning urinalysis, CMP, CBC. Ultimately, discussed with patient that at this time based on history, physical, and diagnostics, she most likely has chronic pain and opioid dependence. she expressed understanding and questions were answered to satisfaction. Disposition: - Patient is appropriate for discharge with outpatient follow up with [facility] and previously scheduled [facility] point. Did not prescribe narcotics because the risks outweigh the benefits. Provided care instructions and return precautions and discharged while stable. ED Prescriptions None Discharge Instructions You have been evaluated in the Emergency Department. Your evaluation was not suggestive of any emergent condition requiring medical intervention at this time. It is important to be aware of any new or worsening symptoms, as some problems may take longer to appear. Please follow-up with [facility] when they call you to schedule an appointment. They may be able to offer you a medication that will help address your pain without using a medication that develops a dependence over time Please follow up with your primary care physician within one to two days. Return to the Emergency Department if you experience worsening pain, persistent fevers greater [id number], recurrent vomiting, lethargy, seizures, shortness of breath, or any other concerning symptoms. Thank you for choosing us for your care. Discharge References/Attachments What is Chronic Pain? - VIDEO (Tuvaluan) Why Opioids Are Addictive - VIDEO (Tuvaluan) Disposition Discharge Patient discharged from the ED at this time. VSS, NAD, EMV 15. Education reviewed with patient. No PIV in place at the time of discharge. AVS (Printed 03/30/2023) Follow-Ups Follow up with Citlali Marquez APRN (Family Medicine) in 3 days (04/02/2023) Follow up with [facility] (Addiction Medicine) Discharge Orders Discharge Ambulatory referral to [facility] Authorized Sign Off Checklist Clinical Impression: Complete ED Disposition: Complete - Beltran Ribera MD Resident 03/31/23 0003 Cosigned by Tom Hernandez MD at 04/06/2023 8:03 AM EST Associated attestation - Tom Hernandez MD - 04/06/2023 8:03 AM EST Final diagnoses: [R10.12] Left upper quadrant abdominal pain [F11.20] Uncomplicated opioid dependence (CMS/HCC) I saw and evaluated the patient with the resident/fellow. I discussed the case with the resident/fellow and agree with the findings and plan as documented. * ED Triage Notes - Ni Persaud RN - 03/30/2023 5:44 PM EST Pt c/o severe abd pain x 3 days. Pt states she has diarrhea and vomiting. documented in this encounter Plan of Treatment Scheduled Referrals Name Type Priority Associated Diagnoses Order Schedule Discharge Ambulatory referral to [facility] Outpatient Referral Routine Uncomplicated opioid dependence (CMS/HCC) Expected: 03/30/2023 (Approximate), Expires: 09/27/2024 documented as of this encounter Procedures Procedure Name Priority Date/Time Associated Diagnosis Comments URINALYSIS WITH REFLEX MICROSCOPIC STAT 03/30/2023 9:38 PM EST CBC WITH AUTO DIFFERENTIAL STAT 03/30/2023 9:38 PM EST URINE CULTURE STAT 03/30/2023 9:38 PM EST TEST QUALITATIVE PLASMA STAT 03/30/2023 8:27 PM EST LIPASE, PLASMA STAT 03/30/2023 8:27 PM EST COMPREHENSIVE METABOLIC PANEL, PLASMA STAT 03/30/2023 8:27 PM EST ECG ADULT STAT 03/30/2023 5:53 PM EST documented in this encounter Results * (ABNORMAL) Urine culture- (clean catch) (03/30/2023 9:38 PM EST) Culture >=100,000 CFU/mL Mixed urogenital , fecal, or skin ángela present.(A ) 04/01/2023 8:23 AM EST [facility] Urine Urine specimen obtained by clean catch procedure / Unknown Non-blood Collection / Unknown 03/30/2023 9:38 PM EST 03/30/2023 9:51 PM EST Beltran Arellano MD LAB MICROBIOLOGY - GENERAL ORD ERABLES Final Result [facility] [address] [place] [address] * Urinalysis with reflex microscopic (03/30/2023 9:38 PM EST) Color, Urine Dark Yellow LAB URINALYSIS - AUTOMATED METHOD 03/30/2023 9:43 PM EST [facility] Clarity, Urine Cloudy LAB URINALYSIS - AUTOMATED METHOD 03/30/2023 9:43 PM EST [facility] Spec [place], Urine 1.018 <=1.005 to >=1.030 LAB URINALYSIS - AUTOMATED METHOD 03/30/2023 9:43 PM EST [facility] pH, Urine 8.0 4.5 to 8 LAB URINALYSIS - AUTOMATED METHOD 03/30/2023 9:43 PM EST [facility] Protein, Urine Negative Negative mg/dL LAB URINALYSIS - AUTOMATED METHOD 03/30/2023 9:43 PM EST [facility] Glucose, Urine Negative Negative mg/dL LAB URINALYSIS - AUTOMATED METHOD 03/30/2023 9:43 PM EST [facility] Ketones, Urine Negative Negative mg/dL LAB URINALYSIS - AUTOMATED METHOD 03/30/2023 9:43 PM EST [facility] Blood, Urine Negative Negative LAB URINALYSIS - AUTOMATED METHOD 03/30/2023 9:43 PM EST [facility] Bilirubin, Urine Negative Negative LAB URINALYSIS - AUTOMATED METHOD 03/30/2023 9:43 PM EST [facility] Urobilinogen , Urine 0.2 0.2 to 1.0 mg/dL LAB URINALYSIS - AUTOMATED METHOD 03/30/2023 9:43 PM EST [facility] Leukocytes, Urine Negative Negative LAB URINALYSIS - AUTOMATED METHOD 03/30/2023 9:43 PM EST [facility] Nitrite, Urine Negative Negative LAB URINALYSIS - AUTOMATED METHOD 03/30/2023 9:43 PM EST [facility] Urine Urine specimen obtained by clean catch procedure / Unknown Non-blood Collection / Unknown 03/30/2023 9:38 PM EST 03/30/2023 9:40 PM EST Beltran Arellano MD LAB URINE ORDERABLES Final Res ult Performing Organization Address City/State/[facility] de Phone Number [facility] [address] [place] [address] * (ABNORMAL) CBC w/diff (03/30/2023 9:38 PM EST) WBC Count 6.62 3.70 - 10.30 10*3/uL LAB HEMATOLOGY METHOD 03/30/2023 9:42 PM EST [facility] RBC Count 3.81(L) 3.90 - 5.20 10*6/uL LAB HEMATOLOGY METHOD 03/30/2023 9:42 PM EST [facility] HGB 10.1(L) 11.2 - 15.7 g/dL LAB HEMATOLOGY METHOD 03/30/2023 9:42 PM EST [facility] HCT 30.4(L) 34.0 - 45.0 % LAB HEMATOLOGY METHOD 03/30/2023 9:42 PM EST [facility] Platelet Count 264 155 - 369 10*3/uL LAB HEMATOLOGY METHOD 03/30/2023 9:42 PM EST [facility] MCV 80 79 - 98 fL LAB HEMATOLOGY METHOD 03/30/2023 9:42 PM EST [facility] MCH 26.5 26.0 - 32.0 pg LAB HEMATOLOGY METHOD 03/30/2023 9:42 PM [facility] MCHC 33.2 30.7 - 35.5 g/dL LAB HEMATOLOGY METHOD 03/30/2023 9:42 PM [facility] RDW 16.3(H) 11.5 - 14.5 % LAB HEMATOLOGY METHOD 03/30/2023 9:42 PM [facility] MPV 9.2 8.8 - 12.5 fL LAB HEMATOLOGY METHOD 03/30/2023 9:42 PM [facility] nRBC 0.0 <=0.0 per 100 WBCs LAB HEMATOLOGY METHOD 03/30/2023 9:42 PM [facility] Differential Type Automated LAB HEMATOLOGY METHOD 03/30/2023 9:42 PM [facility] Neutrophils % 69.0 % LAB HEMATOLOGY METHOD 03/30/2023 9:42 PM [facility] Lymphocytes % 23.0 % LAB HEMATOLOGY METHOD 03/30/2023 9:42 PM [facility] Monocytes % 5.0 % LAB HEMATOLOGY METHOD 03/30/2023 9:42 PM [facility] Eosinophils % 1.0 % LAB HEMATOLOGY METHOD 03/30/2023 9:42 PM [facility] Basophils % 1.0 % LAB HEMATOLOGY METHOD 03/30/2023 9:42 PM [facility] Immature Granulocytes % 1.0 % LAB HEMATOLOGY METHOD 03/30/2023 9:42 PM [facility] Neutrophils Absolute 4.61 1.60 - 6.10 10*3/uL LAB HEMATOLOGY METHOD 03/30/2023 9:42 PM [facility] Lymphocytes Absolute 1.53 1.20 - 3.90 10*3/uL LAB HEMATOLOGY METHOD 03/30/2023 9:42 PM [facility] Monocytes Absolute 0.32 0.30 - 0.90 10*3/uL LAB HEMATOLOGY METHOD 03/30/2023 9:42 PM [facility] Eosinophils Absolute 0.08 0.00 - 0.50 10*3/uL LAB HEMATOLOGY METHOD 03/30/2023 9:42 PM [facility] Basophils Absolute 0.05 0.00 - 0.10 10*3/uL LAB HEMATOLOGY METHOD 03/30/2023 9:42 PM [facility] Immature Granulocytes Absolute 0.03 0.00 - 0.06 10*3/uL LAB HEMATOLOGY METHOD 03/30/2023 9:42 PM [facility] Blood Venous blood specimen / Unknown Venipuncture / Unknown 03/30/2023 9:38 PM EST 03/30/2023 9:40 PM EST Narrative [facility] - 03/30/2023 9:42 PM EST Therapeutic decision making should be based on absolute values, rather than percentages. Beltran Arellano MD LAB BLOOD ORDERABLES Final Res ult Performing Organization Address City/[facility]/ZIP Co de Phone Number [facility] [address] [place] [address] * hCG qualitative (03/30/2023 8:27 PM EST) Test Negative Negative 03/30/2023 8:53 PM EST [facility] Blood Venous blood specimen / Unknown Venipuncture / Unknown 03/30/2023 8:27 PM EST 03/30/2023 8:28 PM EST Narrative [facility] - 03/30/2023 8:53 PM EST Reference Range: Males and non- females: Negative. Beltran Arellano MD LAB BLOOD ORDERABLES Final Res ult Performing Organization Address [facility] Co de Phone Number [facility] [address] [place] [address] * (ABNORMAL) CMP (03/30/2023 8:27 PM EST) Glucose, Plasma 99 74 - 99 mg/dL 03/30/2023 8:53 PM EST [facility] BUN, Plasma 10 7 - 21 mg/dL 03/30/2023 8:53 PM EST [facility] Creatinine, Plasma 0.51(L) 0.60 - 1.10 mg/dL 03/30/2023 8:53 PM EST [facility] BUN/Creatinine Ratio 20 03/30/2023 8:53 PM EST [facility] Sodium, Plasma 139 136 - 145 mmol/L 03/30/2023 8:53 PM EST [facility] Potassium, Plasma 4.2 3.7 - 4.8 mmol/L 03/30/2023 8:53 PM EST [facility] Comment:Hemolyzed, result ma y be falsely increased. Chloride, Plasma 104 97 - 107 mmol/L 03/30/2023 8:53 PM EST [facility] CO2, Plasma 20(L) 22 - 29 mmol/L 03/30/2023 8:53 PM EST [facility] Anion Gap 15 6 - 16 mmol/L 03/30/2023 8:53 PM EST [facility] Total Calcium, Plasma 9.0 8.9 - 10.2 mg/dL 03/30/2023 8:53 PM EST [facility] Total Protein 6.7 6.3 - 7.9 g/dL 03/30/2023 8:53 PM EST [facility] Albumin, Plasma 3.8 3.5 - 5.2 g/dL 03/30/2023 8:53 PM EST [facility] AST, Plasma 33 10 - 35 U/L 03/30/2023 8:53 PM EST [facility] Comment:Hemolyzed, result ma y be falsely increased. ALT, Plasma 32 10 - 35 U/L 03/30/2023 8:53 PM EST [facility] Alkaline Phosphatase, Plasma 121(H) 35 - 104 U/L 03/30/2023 8:53 PM EST [facility] Total Bilirubin, Plasma 0.2 0.2 - 1.1 mg/dL 03/30/2023 8:53 PM EST [facility] eGFRcr 124.2 mL/min/1.7 3m*2 03/30/2023 8:53 PM EST [facility] Comment:Reported eGFRcr in m L/min/1.73m2 is based the CKD-EPI 2020 equation that does not use a race coefficient. Blood Venous blood specimen / Unknown Venipuncture / Unknown 03/30/2023 8:27 PM EST 03/30/2023 8:28 PM EST us Beltran Arellano MD LAB BLOOD ORDERABLES Final Res ult [facility] [address] [place] [address] * Lipase (03/30/2023 8:27 PM EST) Lipase, Plasma 34 19 - 63 U/L 03/30/2023 8:53 PM EST [facility] Blood Venous blood specimen / Unknown Venipuncture / Unknown 03/30/2023 8:27 PM EST 03/30/2023 8:28 PM EST us Beltran Arellano MD LAB BLOOD ORDERABLES Final Res ult [facility] [address] [place] [address] * EKG now - STAT (adult) (03/30/2023 5:53 PM EST) EKG DIAGNOSIS CLASS Abnormal MUSE ECG Ventricular Rate 81 BPM MUSE ECG Atrial Rate 81 BPM MUSE ECG FL Interval 118 ms MUSE ECG QRSD Interval 80 ms MUSE ECG QT Interval 382 ms MUSE ECG QTC Interval 443 ms MUSE ECG P [place] 25 degrees MUSE ECG R [place] 6 degrees MUSE ECG T Wave [place] 3 degrees MUSE ECG Diagnosis Normal sinus rhythm MUSE ECG Diagnosis Possible MUSE ECG Diagnosis Anterolateral infarct MUSE ECG Diagnosis , age undetermined MUSE ECG Diagnosis Abnormal ECG MUSE ECG Diagnosis Confirmed by Francis Day ([id number]) on 03/31/2023 9:47:37 AM MUSE ECG 03/30/2023 5:53 PM EST 03/31/2023 9:47 AM EST us Tom Hernandez MD ECG ORDERABLES Final Resu lt MUSE ECG documented in this encounter Visit Diagnoses Diagnosis Left upper quadrant abdominal pain- Primary Uncomplicated opioid dependence (CMS/HCC) documented in this encounter Administered Medications Inactive Administered Medications - up to 3 most recent administrations Medication Order MAR Action Action Date Dose Rate Site acetaminophen (Tylenol) tablet 1,000 mg 1,000 mg, Oral, Once, 1 dose, On Thu03/30/23 at 2034, STAT Given 03/30/2023 8:40 PM EST 1,000 mg HYDROmorphone (Dilaudid) injection 0.5 mg 0.5 mg, Intravenous, Once, 1 dose, On Thu03/30/23 at 2034, STAT Given 03/30/2023 8:40 PM EST 0.5 mg iohexol (OMNIPaque) 300 MG/ML injection 100 mL 100 mL, Intravenous, Once in imaging, 1 dose, Starting on Thu03/30/23 at 204, Until Thu03/31/23 at 0027, Routine, Imaging Protocol Orders ondansetron (Zofran) injection 4 mg 4 mg, Intravenous, Once, 1 dose, On Thu03/30/23 at 2034, STAT Given 03/30/2023 8:40 PM EST 4 mg oxyCODONE (Roxicodone) immediate release tablet 10 mg 10 mg, Oral, Every 6 hours PRN, Starting on Thu03/30/23 at 2203, Until Thu03/31/23 at 0027, Routine, moderate pain, severe pain Given 03/30/2023 10:10 PM EST 10 mg documented in this encounter Active and Recently Administered Medications Times are shown in EST. Scheduled Medication Order 03/28/2023 03/29/2023 03/30/2023 acetaminophen (Tylenol) tablet 1,000 mg (COMPLETED) 1,000 mg, Oral, Once, 1 dose, On Thu03/30/23 at 5, STAT 2039 (Given - Provid er: Christopher Boyce RN) HYDROmorphone (Dilaudid) injection 0.5 mg (COMPLETED) 0.5 mg, Intravenous, Once, 1 dose, On Thu03/30/23 at 2035, STAT 2040 (Given - Provid er: Christopher Boyce RN) iohexol (OMNIPaque) 300 MG/ML injection 100 mL 100 mL, Intravenous, Once in imaging, 1 dose, Starting on Thu03/30/23 at 204, Until Thu03/31/23 at 0027, Routine, Imaging Protocol Orders ondansetron (Zofran) injection 4 mg (COMPLETED) 4 mg, Intravenous, Once, 1 dose, On Thu03/30/23 at 2035, STAT 2040 (Given - Provid er: Christopher Boyce RN) PRN Medication Order 03/28/2023 03/29/2023 03/30/2023 oxyCODONE (Roxicodone) immediate release tablet 10 mg 10 mg, Oral, Every 6 hours PRN, Starting on Thu03/30/23 at 2203, Until Thu03/31/23 at 0027, Routine, moderate pain, severe pain 2210 (Given - Provid er: Christopher Boyce RN) documented in this encounter Additional Health Concerns Assessment Noted Time A fall risk assessment has been complete d for the patient 11/21/2020 2:30 PM EDT A Body Mass Index follow-up plan has been documented for the patient 03/26/2023 12:22 PM EST documented as of this encounter Care Teams Cheese Tester Relationship Specialty Start Date End Date Citlali Marquez APRN [address] [place] [address] PCP - General Family Medicine 03/26/23 10/19/23 documented as of this encounter
--- OUTSIDE RECORDS SUMMARY | 2024-02-03 15:13 | XMS_ITS | Encounter Summary ---
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
--- OUTSIDE RECORDS SUMMARY | 2024-02-03 15:13 | XMS_ITS | Encounter Summary ---
Author Organization [facility] Address [address] [place] [address] Care Team Providers Care Sack Sorter Name Role Phone JimmyCitlali lowe Gilberto ORELLANA Primary Care Provider [phone] Encounter Details Date Type Department Care Team (Latest Contact Info) Description 04/04/2023 Travel Social History Tobacco Use Types Packs/Day [...] slept in a long-term (including now)? 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
--- OUTSIDE RECORDS SUMMARY | 2024-02-03 15:13 | XMS_ITS | Encounter Summary ---
Author Organization Healthcare Address [address] [place] [address] Care Team Providers Care Band Instrument Maker Name Role Phone CushingCitlali lowe Gilberto ORELLANA Primary Care Provider [phone] Reason for Visit * Reason Comments Abdominal Pain * Auth/Cert (Routine) Specialty Diagnoses / Procedures Referred By Susy burks Referred To Contact Diagnoses Left upper quadrant abdominal pain Javier Pittman MD [address] [place] [phone] Phone: tel: fax: [facility] Inpatient [address] [place] [address] Phone: tel: Referral ID Status Reason Start Date Expiration Date Visits Re quested Visits Authorized [id number] 1 1 Encounter Details Date Type Department Care Team ([facility] Contact Info) Description 04/09/2023 9:27 AM EST - 04/09/2023 2:35 PM EST Emergency [facility] Emergency Department [address] [place] [address] LUQ abdominal pain (Primary Dx); Gastroparesis Discharge Disposition: Home or Self Care Social [...] place to sleep or slept in a jail (including now)? 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 0 03/18/2023 CAGE Questionnaire Score 0 024 Utilities Answer Date Recorded In the past 12 months has th e [email or web address], gas, oil, or water [employer] threatened to shut off services in your [...] Sign Reading Time Taken Comments Blood Pressure 143/97 04/09/2023 12:40 PM EST Pulse 89 04/09/2023 12:40 PM EST Temperature 36.3 ??C (97.4 ??F) 04/09/2023 12:[address] Respiratory Rate 20 04/09/2023 12:40 PM EST Oxygen Saturation 98% 04/09/2023 12:40 PM EST Inhaled Oxygen Concentration - - Weight 104 kg (229 lb 11.5 oz) 04/09/2023 8:53 A M EST Height 165.1 cm (5' 5 ) 04/09/2023 8:53 AM EST Body Mass Index 38.23 04/09/2023 8:53 AM EST documented in this encounter Discharge Instructions * Discharge Instructions* Mireya Vo PA - 04/09/2023 2:22 PM EST Continue home meds, stay hydrated, follow clear fluid diet for 48 hr and advance as tolerated. KeepGI and pain clinic appts. Return to ER if develop fever, uncontrolled vomiting, uncontrolled diarrhea, worsening symptoms or any concern * Attachments The following attachments cannot be sent through Care Everywhere. * Gastroparesis (Armenian) * Abdominal Pain, Adult (Armenian) documented in this encounter Medications at Time of Discharge pantoprazole (Protonix) 40 MG EC tablet Take 1 tablet (40 mg) by mouth 1 (one) time each day. Do not crush, chew, or split. ondansetron ODT (Zofran-ODT) 4 MG disintegrating tablet Take 1 tablet (4 mg) by mouth every 6 (six) hours if needed for nausea. 12 tablet 04/02/2023 4 acetaminophen (Tylenol) 500 MG tablet Take [...] 5 doses. 10 tablet 03/25/2023 4 pancrelipase, Ciq-Zoir-Hevw, (Creon) [id number] units capsule Take 1 capsule by mouth [...] Provider Notes - Mireya Vo PA - 04/09/2023 8:41 AM EST Images from the original note were not included. - HPI Chief Complaint Patient presents with Abdominal Pain Lila Mcnally is a 37 y.o. female well known to the ER with PMH chronic abdominal pain, GERD, gastric erosions, pancreatitis, fibromyalgia, obesity, and opioid dependence who presents to the Emergency Department with complaints of Abdominal Pain. Reports developed LUQ pain at 1am described as stabbing and wrapping around to her left flank with one associated episode of non-bloody vomiting. Shereports several days of nonbloody diarrhea that she describes as, clear water but is not on GoLytely. Says since she threw up today despite her home phenergan, she was unfortunately unable to take her home Lyrica or Ativan. Says last instrumentation was EGD during admission last month. Denies fever, constipation, dysuria, , recent travel, recent abx, exposure to sketchy foods/water. [place] Coma Scale Score: 15 Patient History Past Medical History: Diagnosis Date Anxiety Arthritis Depression Fibromyalgia Gastric erosions 04/19/2021 GERD (gastroesophageal reflux disease) Hypertension Intentional overdose ([facility]) 12/20/2021 Nicotine dependence Obesity Pancreatitis Past [...] a month 03-20-23 Immunization History Immunization History: reviewed Allergies: Allergies [...] are negative. Physical Exam ED Triage Vitals [04/09/23 0853] Temp Heart Rate Resp BP 36.7 ??C (98 ??F) 112 18 (!) 152/98 SpO2 Temp Source Heart Rate Source Patient Position 100 % Oral -- Sitting BP Location FiO2 (%) Right arm -- Physical Exam Constitutional: Appearance: She is well-developed. She is not diaphoretic. HENT: Head: Normocephalic and atraumatic. Eyes: General: No scleral icterus. Cardiovascular: Rate and Rhythm: Regular rhythm. Tachycardia present. Heart sounds: Normal heart sounds. Pulmonary: Effort: Pulmonary effort is normal. Breath sounds: Normal breath sounds. Abdominal: General: Abdomen is flat. Palpations: Abdomen is soft. Tenderness: There is abdominal tenderness in the left upper quadrant. There is no guarding. Skin: General: Skin is warm and dry. Capillary Refill: Capillary refill takes less than 2 seconds. Coloration: Skin is not jaundiced. Neurological: General: No focal deficit present. Mental Status: She is alert and oriented to person, place, and time. Psychiatric: Mood and Affect: Mood normal. Behavior: Behavior normal. ED Course & MDM ED Course as of 04/09/23 1530 Annabel Apr 09, 2023 1038 Lactic acid, venous Within normal limits. [AB] 1038 CBC w/diff(!) No leukocytosis [AB] 1044 Lipase Within normal limits. [AB] 1044 CMP(!) No JYOTSNA, no gap, no electrolyte derangement, no biliary obstructive pattern [AB] 1044 Magnesium Within normal limits. [AB] 1044 hCG qualitative Neg [AB] 1337 Urinalysis with reflex microscopic AND reflex culture (IF UTI SUSPECTED) No UTI. No volume depletion. [AB] ED Course User Index [AB] Mireya Vo PA Clinical Impressions as of 04/09/23 1530 LUQ abdominal pain Gastroparesis - Medical Decision Making In summary this is a 37 y.o. female who presented to the ED with complaints of Abdominal Pain. Patient's chronic conditions include chronic abdominal pain which is not at goal and is exacerbating hersymptoms today. Per chart review, patient was seen yesterday for similar complaints and has had over 20 ER visits in the 6 weeks of 2023 so far and GI determined she is not a celiac plexus block candidate due to repeated lack of pancreatitis findings on imaging-of note, patient has been exposed to quite a bit of radiation throughout her repeated ER visits and will attempt to limit any further radiation unless she becomes unstable. Concern today for chronic abdominal pain, ulcer, GERD, gastritis, pancreatitis, volume depletion. She appears at her baseline. Received IV bolus, IV famotine, zofran, IV dilaudid x2 and upon reassessment she was de-escalated to PO GI cocktail, APAP and oxycodone. She also received her missed home dose of 2mg ativan and missed home dose of 300mg lyrica. Labs showed no JYOTSNA, no leukocytosis, no volume depletion, no electrolyte derangement, no UTI, normal lactate,normal lipase. Patient reassessed, passed PO. She was advised to follow a clear fluid diet for 48 hr and advance as tolerated due to her history of pancreatitis, to continue home meds, to keep her pain clinic appt and GI appt. ED Prescriptions None Discharge Instructions Continue home meds, stay hydrated, follow clear fluid diet for 48 hr and advance as tolerated. KeepGI and pain clinic appts. Return to ER if develop fever, uncontrolled vomiting, uncontrolled diarrhea, worsening symptoms or any concern Discharge References/Attachments Gastroparesis (Armenian) Abdominal Pain, Adult (Armenian) Disposition Discharge Patient discharged from ED. Pt declined VS for discharge. Pt verbalized understanding of all DC instructions and ambulated out of ED with steady unassisted gait. AVS (Printed 04/09/2023) Sign Off Checklist Clinical Impression: Complete ED Disposition: Complete - Mireya Vo PA 04/09/23 1530 Cosigned by George Martinez MD at 04/09/2023 4:26 PM EST Associated attestation - George Martinez MD - 04/09/2023 4:26 PM EST The patient was seen only by Advanced Practice Provider (AJAY), and care was reviewed with me. * ED Triage Notes - Carlton Sr RN - 04/09/2023 8:41 AM EST Pt complains of LUQ pain with NVD. documented in this encounter Plan of Treatment Not on file documented as of this encounter Procedures Procedure Name Priority Date/Time Associated Diagnosis Comments URINALYSIS WITH REFLEX MICROSCOPIC STAT 04/09/2023 11:43 AM EST URINE GUNTER PANEL STAT 04/09/2023 11:4 3 AM EST URINALYSIS WITH REFLEX MICROSCOPIC STAT 04/09/2023 11:43 AM EST LACTATE, VENOUS STAT 04/09/2023 10:15 AM EST CBC WITH AUTO DIFFERENTIAL STAT 04/09/2023 10:15 AM EST TEST QUALITATIVE PLASMA STAT 04/09/2023 10:15 AM EST MAGNESIUM, PLASMA STAT 04/09/2023 10: 15 AM EST LIPASE, PLASMA STAT 04/09/2023 10:15 AM EST COMPREHENSIVE METABOLIC PANEL, PLASMA STAT 04/09/2023 10:15 AM EST documented in this encounter Results * Urine Gunter Panel (04/09/2023 11:43 AM EST) Extra Reflex urine culture not indicated 04/09/2023 8:01 PM EST [facility] Comment: Previously prelim verified as Specimen evaluation in progress on 04/09/2023 at 1301 EST. Previously prelim verified as Specimen evaluation in progress on 04/09/2023 at 1401 EST. Previously prelim verified as Specimen evaluation in progress on 04/09/2023 at 1501 EST. Previously prelim verified as Specimen evaluation in progress on 04/09/2023 at 1601 EST. Previously prelim verified as Specimen evaluation in progress on 04/09/2023 at 1701 EST. Previously prelim verified as Specimen evaluation in progress on 04/09/2023 at 1801 EST. Previously prelim verified as Specimen evaluation in progress on 04/09/2023 at 1901 EST. Urine Urine specimen obtained by clean catch procedure / Unknown Non-blood Collection / Unknown 04/09/2023 11:43 AM EST 04/09/2023 11:47 AM EST Mireya NAJERA LAB URINE ORDERABLES Final Resul t [facility] [address] [place] [address] * Urinalysis with reflex microscopic (Culture NOT Included) (04/09/2023 11:43 AM EST) Color, Urine Yellow LAB URINALYSIS - AUTOMATED METHOD 04/09/2023 11:57 AM EST [facility] Clarity, Urine Clear LAB URINALYSIS - AUTOMATED METHOD 04/09/2023 11:57 AM EST [facility] Spec [place], Urine 1.014 <=1.005 to >=1.030 LAB URINALYSIS - AUTOMATED METHOD 04/09/2023 11:57 AM EST [facility] pH, Urine 6.5 4.5 to 8 LAB URINALYSIS - AUTOMATED METHOD 04/09/2023 11:57 AM EST [facility] Protein, Urine Negative Negative mg/dL LAB URINALYSIS - AUTOMATED METHOD 04/09/2023 11:57 AM EST [facility] Glucose, Urine Negative Negative mg/dL LAB URINALYSIS - AUTOMATED METHOD 04/09/2023 11:57 AM EST [facility] Ketones, Urine Negative Negative mg/dL LAB URINALYSIS - AUTOMATED METHOD 04/09/2023 11:57 AM EST [facility] Blood, Urine Negative Negative LAB URINALYSIS - AUTOMATED METHOD 04/09/2023 11:57 AM EST [facility] Bilirubin, Urine Negative Negative LAB URINALYSIS - AUTOMATED METHOD 04/09/2023 11:57 AM EST [facility] Urobilinogen, Urine 0.2 0.2 to 1.0 mg/dL LAB URINALYSIS - AUTOMATED METHOD 04/09/2023 11:57 AM EST [facility] Leukocytes, Urine Negative Negative LAB URINALYSIS - AUTOMATED METHOD 04/09/2023 11:57 AM EST [facility] Nitrite, Urine Negative Negative LAB URINALYSIS - AUTOMATED METHOD 04/09/2023 11:57 AM [facility] Urine Urine specimen obtained by clean catch procedure / Unknown Non-blood Collection / Unknown 04/09/2023 11:43 AM EST 04/09/2023 11:47 AM EST Mireya NAJERA LAB URINE ORDERABLES Final Resul t Performing Organization Address City/[facility] Co de Phone Number [facility] [address] [place] [address] * hCG qualitative (04/09/2023 10:15 AM EST) Test Negative Negative 04/09/2023 10:38 AM EST [facility] Blood Venous blood specimen / Unknown Venipuncture / Unknown 04/09/2023 10:15 AM EST 04/09/2023 10:16 AM EST Narrative [facility] - 04/09/2023 10:38 AM EST Reference Range: Males and non- females: Negative. us Mireya NAJERA LAB BLOOD ORDERABLES Final Resul t Performing Organization Address [facility] Co de Phone Number [facility] [address] [place] [address] * Lactic acid, venous (04/09/2023 10:15 AM EST) Lactate, Venous, Whole Blood 1.2 0.5 - 2.2 mmol/L LAB HEMATOLOGY METHOD 04/09/2023 10:19 AM EST [facility] Blood Venous blood specimen / Unknown Venipuncture / Unknown 04/09/2023 10:15 AM EST 04/09/2023 10:16 AM EST us Mireya NAJERA LAB BLOOD ORDERABLES Final Resul t Performing Organization Address [facility] Co de Phone Number [facility] [address] [place] [address] * Lipase (04/09/2023 10:15 AM EST) Lipase, Plasma 62 19 - 63 U/L 04/09/2023 10:38 AM EST [facility] Blood Venous blood specimen / Unknown Venipuncture / Unknown 04/09/2023 10:15 AM EST 04/09/2023 10:16 AM EST us Mireya NAJERA LAB BLOOD ORDERABLES Final Resul t Performing Organization Address City/[facility] Co de Phone Number [facility] [address] [place] [address] * Magnesium (04/09/2023 10:15 AM EST) Magnesium, Plasma 1.9 1.9 - 2.4 mg/dL 04/09/2023 10:38 AM EST [facility] Blood Venous blood specimen / Unknown Venipuncture / Unknown 04/09/2023 10:15 AM EST 04/09/2023 10:16 AM EST us Mireya NAJERA LAB BLOOD ORDERABLES Final Resul t [facility] [address] [place] [address] * (ABNORMAL) CMP (04/09/2023 10:15 AM EST) Glucose, Plasma 104(H) 74 - 99 mg/dL 04/09/2023 10:38 AM EST [facility] BUN, Plasma 8 7 - 21 mg/dL 04/09/2023 10:38 AM [facility] Creatinine, Plasma 0.51(L) 0.60 - 1.10 mg/dL 04/09/2023 10:38 AM EST [facility] BUN/Creatinine Ratio 16 04/09/2023 10:38 AM EST [facility] Sodium, Plasma 139 136 - 145 mmol/L 04/09/2023 10:38 AM [facility] Potassium, Plasma 3.7 3.7 - 4.8 mmol/L 04/09/2023 10:38 AM [facility] Chloride, Plasma 103 97 - 107 mmol/L 04/09/2023 10:38 AM EST [facility] CO2, Plasma 22 22 - 29 mmol/L 04/09/2023 10:38 AM EST [facility] Anion Gap 14 6 - 16 mmol/L 04/09/2023 10:38 AM EST [facility] Total Calcium, Plasma 9.2 8.9 - 10.2 mg/dL 04/09/2023 10:38 AM EST [facility] Total Protein 7.0 6.3 - 7.9 g/dL 04/09/2023 10:38 AM EST [facility] Albumin, Plasma 4.3 3.5 - 5.2 g/dL 04/09/2023 10:38 AM EST [facility] AST, Plasma 23 10 - 35 U/L 04/09/2023 10:38 AM EST [facility] ALT, Plasma 28 10 - 35 U/L 04/09/2023 10:38 AM EST [facility] Alkaline Phosphatase, Plasma 102 35 - 104 U/L 04/09/2023 10:38 AM EST [facility] Total Bilirubin, Plasma 0.4 0.2 - 1.1 mg/dL 04/09/2023 10:38 AM EST [facility] eGFRcr 124.2 mL/min/1.7 3m*2 04/09/2023 10:38 AM EST [facility] Comment:Reported eGFRcr in m L/min/1.73m2 is based the CKD-EPI 2020 equation that does not use a race coefficient. Blood Venous blood specimen / Unknown Venipuncture / Unknown 04/09/2023 10:15 AM EST 04/09/2023 10:16 AM EST us Mireya NAJERA LAB BLOOD ORDERABLES Final Resul t Performing Organization Address City/State/[facility] Co de Phone Number [facility] [address] [place] [address] * (ABNORMAL) CBC w/diff (04/09/2023 10:15 AM EST) WBC Count 5.13 3.70 - 10.30 10*3/uL LAB HEMATOLOGY METHOD 04/09/2023 10:19 AM EST [facility] RBC Count 4.15 3.90 - 5.20 10*6/uL LAB HEMATOLOGY METHOD 04/09/2023 10:19 AM EST [facility] HGB 10.9(L) 11.2 - 15.7 g/dL LAB HEMATOLOGY METHOD 04/09/2023 10:19 AM EST [facility] HCT 33.5(L) 34.0 - 45.0 % LAB HEMATOLOGY METHOD 04/09/2023 10:19 AM EST [facility] Platelet Count 241 155 - 369 10*3/uL LAB HEMATOLOGY METHOD 04/09/2023 10:19 AM EST [facility] MCV 81 79 - 98 fL LAB HEMATOLOGY METHOD 04/09/2023 10:19 AM EST [facility] MCH 26.3 26.0 - 32.0 pg LAB HEMATOLOGY METHOD 04/09/2023 10:19 AM [facility] MCHC 32.5 30.7 - 35.5 g/dL LAB HEMATOLOGY METHOD 04/09/2023 10:19 AM [facility] RDW 16.6(H) 11.5 - 14.5 % LAB HEMATOLOGY METHOD 04/09/2023 10:19 AM [facility] MPV 9.1 8.8 - 12.5 fL LAB HEMATOLOGY METHOD 04/09/2023 10:19 AM [facility] nRBC 0.0 <=0.0 per 100 WBCs LAB HEMATOLOGY METHOD 04/09/2023 10:19 AM [facility] Differential Type Automated LAB HEMATOLOGY METHOD 04/09/2023 10:19 AM [facility] Neutrophils % 63.0 % LAB HEMATOLOGY METHOD 04/09/2023 10:19 AM [facility] Lymphocytes % 24.0 % LAB HEMATOLOGY METHOD 04/09/2023 10:19 AM [facility] Monocytes % 6.0 % LAB HEMATOLOGY METHOD 04/09/2023 10:19 AM [facility] Eosinophils % 5.0 % LAB HEMATOLOGY METHOD 04/09/2023 10:19 AM [facility] Basophils % 1.0 % LAB HEMATOLOGY METHOD 04/09/2023 10:19 AM [facility] Immature Granulocytes % 1.0 % LAB HEMATOLOGY METHOD 04/09/2023 10:19 AM [facility] Neutrophils Absolute 3.25 1.60 - 6.10 10*3/uL LAB HEMATOLOGY METHOD 04/09/2023 10:19 AM [facility] Lymphocytes Absolute 1.25 1.20 - 3.90 10*3/uL LAB HEMATOLOGY METHOD 04/09/2023 10:19 AM [facility] Monocytes Absolute 0.32 0.30 - 0.90 10*3/uL LAB HEMATOLOGY METHOD 04/09/2023 10:19 AM [facility] Eosinophils Absolute 0.24 0.00 - 0.50 10*3/uL LAB HEMATOLOGY METHOD 04/09/2023 10:19 AM [facility] Basophils Absolute 0.04 0.00 - 0.10 10*3/uL LAB HEMATOLOGY METHOD 04/09/2023 10:19 AM [facility] Immature Granulocytes Absolute 0.03 0.00 - 0.06 10*3/uL LAB HEMATOLOGY METHOD 04/09/2023 10:19 AM [facility] Blood Venous blood specimen / Unknown Venipuncture / Unknown 04/09/2023 10:15 AM EST 04/09/2023 10:16 AM EST Narrative [facility] - 04/09/2023 10:19 AM EST Therapeutic decision making should be based on absolute values, rather than percentages. us Mireya NAJERA LAB BLOOD ORDERABLES Final Resul t [facility] [address] [place] [id number] documented in this encounter Visit Diagnoses Diagnosis LUQ abdominal pain- Primary Abdominal pain, left upper quadrant Gastroparesis documented in this encounter Administered Medications Inactive Administered Medications - up to 3 most recent administrations Medication Order MAR Action Action Date Dose Rate Site acetaminophen (Tylenol) tablet 1,000 mg 1,000 mg, Oral, Once, 1 dose, On Annabel 04/09/23 at 1340, Routine Given 04/09/2023 1:49 PM EST 1,000 mg famotidine PF (Pepcid) injection 20 mg 20 mg, Intravenous, Once, 1 dose, On Annabel 04/09/23 at 0955, STAT Given 04/09/2023 10:04 AM EST 20 mg gi cocktail oral solution 30 mL 30 mL, Oral, Once, 1 dose, On Annabel 04/09/23 at 1340, STAT Given 04/09/2023 1:49 PM EST 30 mL HYDROmorphone (Dilaudid) injection 0.25 mg 0.25 mg, Intravenous, Once, 1 dose, On Annabel 04/09/23 at 0955, Routine Given 04/09/2023 10:04 AM EST 0.25 mg HYDROmorphone (Dilaudid) injection 0.25 mg 0.25 mg, Intravenous, Once, 1 dose, On Annabel 04/09/23 at 1135, STAT Given 04/09/2023 11:43 AM EST 0.25 mg lactated Ringer's infusion 1,000 mL 1,000 mL, Intravenous, Once, 1 dose, On Annabel 04/09/23 at 0955, STAT New Bag 04/09/2023 10:05 AM EST 1,000 mL LORazepam (Ativan) tablet 2 mg 2 mg, Oral, Once, 1 dose, On Annabel 04/09/23 at 0955, STAT Given 04/09/2023 10:04 AM EST 2 mg ondansetron (Zofran) injection 4 mg 4 mg, Intravenous, Once, 1 dose, On Annabel 04/09/23 at 0955, STAT Given 04/09/2023 10:04 AM EST 4 mg oxyCODONE (Roxicodone) immediate release tablet 5 mg 5 mg, Oral, Once, 1 dose, On Annabel 04/09/23 at 1425, STAT Given 04/09/2023 2:33 PM EST 5 mg pregabalin (Lyrica) capsule 300 mg 300 mg, Oral, Once, 1 dose, On Annabel 04/09/23 at 0955, Routine Given 04/09/2023 10:28 AM EST 300 mg documented in this encounter Active and Recently Administered Medications Times are shown in EST. Scheduled Medication Order 04/07/2023 04/08/2023 04/09/2023 acetaminophen (Tylenol) tablet 1,000 mg (COMPLETED) 1,000 mg, Oral, Once, 1 dose, On Annabel 04/09/23 at 1340, Routine 1349 (Given - Provid er: Angela Almanzar RN) famotidine PF (Pepcid) injection 20 mg (COMPLETED) 20 mg, Intravenous, Once, 1 dose, On Annabel 04/09/23 at 0955, STAT 1004 (Given - Provid er: Oni Mcclelland Jr.) gi cocktail oral solution 30 mL (COMPLETED) 30 mL, Oral, Once, 1 dose, On Annabel 04/09/23 at 1340, STAT 1349 (Given - Provid er: Angela Almanzar RN) HYDROmorphone (Dilaudid) injection 0.25 mg (COMPLETED) 0.25 mg, Intravenous, Once, 1 dose, On Annabel 04/09/23 at 0955, Routine 1004 (Given - Provid er: Oni Mcclelland Jr.) HYDROmorphone (Dilaudid) injection 0.25 mg (COMPLETED) 0.25 mg, Intravenous, Once, 1 dose, On Annabel 24 at 1135, STAT 1143 (Given - Provid er: Angela Almanzar RN) lactated Ringer's infusion 1,000 mL (COMPLETED) 1,000 mL, Intravenous, Once, 1 dose, On Annabel 04/09/23 at 0955, STAT 1005 (New Bag - Prov ider: Oni Mcclelland Jr.)1130 (Stopped - Provider: Angela Almanzar, RN) LORazepam (Ativan) tablet 2 mg (COMPLETED) 2 mg, Oral, Once, 1 dose, On Annabel 04/09/23 at 0955, STAT 1004 (Given - Provid er: Oni Mcclelland Jr.) ondansetron (Zofran) injection 4 mg (COMPLETED) 4 mg, Intravenous, Once, 1 dose, On Annabel 04/09/23 at 0955, STAT 1004 (Given - Provid er: Oni Mcclelland Jr.) oxyCODONE (Roxicodone) immediate release tablet 5 mg (COMPLETED) 5 mg, Oral, Once, 1 dose, On Annabel 04/09/23 at 1425, STAT 1433 (Given - Provid er: Angela Almanzar RN) pregabalin (Lyrica) capsule 300 mg (COMPLETED) 300 mg, Oral, Once, 1 dose, On Annabel 04/09/23 at 0955, Routine 1028 (Given - Provid er: Kathy Arango RN) documented in this encounter Additional Health Concerns Assessment Noted Time A fall risk assessment has been complete d for the patient 11/21/2020 2:30 PM EDT A Body Mass Index follow-up plan has been documented for the patient 03/26/2023 12:22 PM EST documented as of this encounter Care Teams Band Instrument Maker Relationship Specialty Start Date End Date Citlali Marquez APRN [facility] [place] [id number] PCP - General Family Medicine 03/26/23 10/19/23 documented as of this encounter
--- OUTSIDE RECORDS SUMMARY | 2024-02-03 15:13 | XMS_ITS | Encounter Summary ---
Author Organization Healthcare Address [address] [place] [address] Care Team Providers Care Demurrage Clerk Name Role Phone DoverCitlali lowe Gilberto ORELLANA Primary Care Provider [phone] Reason for Visit * Reason Comments Abdominal Pain * Auth/Cert (Routine) Specialty Diagnoses / Procedures Referred By Susy t Referred To Contact Diagnoses Left upper quadrant abdominal pain Javier Pittman MD [address] [place] [address] Phone: tel: fax: [facility] Inpatient [address] [place] [address] Phone: tel: Referral ID Status Reason Start Date Expiration Date Visits Re quested Visits Authorized [id number] 1 1 Encounter Details Date Type Department Care Team ([facility] st Contact Info) Description 04/08/2023 10:53 AM EST - 04/08/2023 2:24 PM EST Emergency PAV S Emergency Department [address] [place] [address] Agnes Cooley MD [address] [place] [phone] Nausea and vomiting, unspecified vomiting type (Primary Dx); Chronic abdominal pain Discharge Disposition: Home or Self [...] place to sleep or slept in a fci (including now)? 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-STRIP ROLLER) to steady your nerves or to get rid of a hangover? 0 03/18/2023 CAGE Questionnaire Score 0 024 Utilities Answer Date Recorded In the past 12 months has th [employer], gas, oil, or water company threatened to [...] Sign Reading Time Taken Comments Blood Pressure 160/106 04/08/2023 2:19 PM EST Pulse 87 04/08/2023 2:19 PM EST Temperature 36.8 ??C (98.2 ??F) 04/08/2023 2:19 PM ES T Respiratory Rate 16 04/08/2023 2:19 PM EST Oxygen Saturation 98% 04/08/2023 2:19 PM EST Inhaled Oxygen Concentration - - Weight 105 kg (230 lb 9.6 oz) 04/08/2023 10:13 A M EST Height 165.1 cm (5' 5 ) 04/08/2023 10:13 AM EST Body Mass Index 38.37 04/08/2023 10:13 AM EST documented in this encounter Discharge Instructions * Discharge Instructions* Agnes Cooley MD - 04/08/2023 1:27 PM EST Clear liquid diet today to rest the GI tract. SLOWLY add solids as tolerated in the next couple days. Follow up with GI and pain management later this month as scheduled. Return to ER if worse. * Attachments The following attachments cannot be sent through Care Everywhere. * Vomiting (Adult) (Hong Konger) * Pain, Complementary Care for (Hong Konger) documented in this encounter Medications at Time [...] 5 doses. 10 tablet 03/25/2023 4 pancrelipase, Njy-[id number]-Httg, (Creon) [id number] units capsule Take 1 capsule by mouth [...] Miscellaneous Notes * ED Provider Notes - Agnes Cooley MD - 04/08/2023 9:58 AM EST - HPI Chief Complaint Patient presents with Abdominal Pain Lila Mcnally is a 37 y.o. female with a history significant for gastric erosions, self-reportedchronic pancreatitis (but never confirmed on imaging), cholecystectomy, ERCP, esophagogastroduodenoscopy who presents today from home to the emergency department with abdominal pain. Pt states she woke from sleep at 2 am this morning with a stabbing abdominal pain in LUQ that wraps to left back, along with nausea and vomiting. At 5 am pt developed diarrhea. Pt took phenergan, tylenol, and ibuprofen at 2 am with nausea relief but limited pain relief. Last night pt felt fine and endorses eating BBQ chicken and mashed potatoes for dinner. Pt has had 4 ED visits in the last 10 days with similar sy mptoms, last visit 04/04. Reports symptoms today are similar to prior flare of my pancreatitis. Has appointments scheduled with a pain specialist on 04/17 and [facility] on 05/05 to reestablish care. Previously seeing Dr. Jassi Flores (GI) in [place] but did not feel things were moving or getting done. Patient denies fever, chills, headache, cough, chest pain, shortness of breath, BLE swelling, and urinary symptoms. No other complaints at this time. 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 by: Patient auto travel counselor used: No No data recorded Patient History Past Medical History: Diagnosis Date Anxiety Arthritis Depression Fibromyalgia Gastric erosions 04/19/2021 GERD (gastroesophageal reflux disease) Hypertension Intentional overdose ([facility]) 12/20/2021 Nicotine dependence Obesity Pancreatitis Past Surgical [...] Marijuana Comment: a few times a month LD 03-20-23 Immunization History Immunization History: reviewed Allergies: [...] and palpitations. Gastrointestinal: Positive for abdominal pain, diarrhea, nausea and vomiting. Genitourinary: Negative for dysuria and hematuria. Musculoskeletal: Positive for back pain. Negative for arthralgias. Skin: Negative for color change and rash. Neurological: Negative for seizures and syncope. All other systems reviewed and are negative. Physical Exam ED Triage Vitals [04/08/23 1013] Temp Heart Rate Resp BP 36.7 ??C (98.1 ??F) (!) 125 20 (!) 167/102 SpO2 Temp Source Heart Rate Source Patient Position 98 % Oral -- Sitting BP Location FiO2 (%) Right arm -- Physical Exam Vitals and nursing note reviewed. Constitutional: General: She is not in acute distress. Appearance: She is well-developed. She is obese. Comments: Uncomfortable appearing Anxious HENT: Head: Normocephalic and atraumatic. Right Ear: [...] the epigastric area and left upper quadrant. Comments: Ttp across epigastrium and LUQ Musculoskeletal: General: No swelling or deformity. Cervical back: Normal range of motion and neck supple. Skin: General: Skin is warm and dry. Capillary Refill: Capillary refill takes less than 2 seconds. Coloration: Skin is not jaundiced or pale. Neurological: General: No focal deficit present. Mental Status: She is alert and oriented to person, place, and time. Psychiatric: Mood and Affect: Mood normal. Comments: anxious ED Course & MDM ED Course as of 04/10/23723Apr 08, 2023 1133 Review of prior records - discharge summary 03/25/23-- GI was consulted for celiac plexus block and patient not a candidate given no imaging evidence of chronic pancreatitis. She underwent EGD 03/20 which revealed candidal esophagitis and gastroparesis. She was started on 14d course of fluconazole and metoclopramide PRN. Patient's pain was managed withtylenol, GI cocktail, and narcotics. Patient was on PO narcotics on day of discharge. [KW] 1137 - EGD 03/21 revealed candidal esophagitis, abnormal mucosa, and retained food c/f gastroparesis[KW] 1325 CBC w/diff(!) No acute abnormality [KW] 1325 CMP(!) No acute abnormality [KW] 1325 Lipase normal [KW] 1325 hCG qualitative negative [KW] ED Course User Index [KW] Agnes Cooley MD Clinical Impressions as of 04/10/23723 Nausea and vomiting, unspecified vomiting type Chronic abdominal pain - Medical Decision Making Lila Mcnally is a 37 y.o. female with a history significant for chronic abdominal pain, self-reported chronic pancreatitis (but never confirmed on imaging), gastric erosions, s/p cholecystectomy,ERCP, esophagogastroduodenoscopy who presents today from home with c/o recurrent upper abdominal pain similar to prior episodes. Pt states she woke from sleep at 2 am this morning with a stabbing abdominal pain in LUQ that wraps to left back, along with nausea and vomiting. On exam, she has ttp of the upper abdomen, appears uncomfortable, and no active vomiting. Differential includes chronic functional abdominal pain, gastritis, food poisoning (symptoms started after eating chicken last night), viral syndrome, pancreatitis. On review of prior records, pt has multiple ER visits for chronic pancreatitis. On many prior outpatient and ER visits, including 12 ER visits so far this year, she has never had findings on imaging of pancreatitis. Pt was given antiemetics and 1L IVF bolus along with morphine 4mg IV. Labs on my interpretation are unremarkable, no s/s pancreatitis. Because of multiple prior scans and low yield/suspicion for repeat scan today, I elected not to scan after d/w patient who is in agreement. Shewas able to tolerate po, received norco 5mg tab and kept that down. Asked for narcotic prescriptionbut discussed this was not indicated (there is also strong suspicion of drug-seeking and manipulative behavior from prior ER/office visits). Pt has upcoming appointments later this month with both GIand pain management. Discussed clear liquid diet today and indications for ER return. Pt dc home. Additional MDM: In order to fully explore differential these tests and treatments were ordered. Orders Placed This Encounter CBC w/diff CMP Magnesium Lipase Lactic acid, venous hCG qualitative Extra Tubes Light Green Top Insert peripheral IV Medications lactated Ringer's infusion 1,000 mL (0 mL Intravenous Stopped 04/08/23 1423) ondansetron (Zofran) injection 4 mg (4 mg Intravenous Given 04/08/23 1209) acetaminophen (Tylenol) tablet 500 mg (500 mg Oral Given 04/08/23 1210) morphine PF 4 mg (4 mg Intravenous Given 04/08/23 1227) promethazine (Phenergan) tablet 25 mg (25 mg Oral Given 04/08/23 1351) oxyCODONE (Roxicodone) immediate release tablet 5 mg (5 mg Oral Given 04/08/23 1351) External notes independently obtained and reviewed and are pertinent for: Multiple prior ER visits, including 12 to ER----since start of 2023 No indication for EKG at this time. No indication for imaging at this time. No indication for consultation or admission at this time. It should be noted that her chronic conditions includes chronic abdominal pain, self-reported chronic pancreatitis (but never confirmed on imaging), gastric erosions, s/p CCY, which currently is not at goal therapy. This complicates her clinical picture because it may be exacerbating symptoms, increases the amount and complexity of data to be reviewed, complicates the clinical workup, and increases the risk for morbidity. No complicating social factors. Given unremarkable workup and/or symptomatic relief, at this time it was felt that the patient was safe to be discharged home. The patient was comfortable and in agreement with this plan. Patient instructed to follow up with PCP. The patient was given strict return precautions prior to being discharged from the emergency department. DISPOSITION: Discharge Date/Time: 04/08/2023/11:25 AM Entered by Alexandria Horton, acting as scribe for Agnes Phillip MD. Scribe Attestation: This note was dictated to me, Alexandria Horton, acting as a scribe for Agnes Phillip MD. Attending Attestation: The documentation was recorded by Alexandria Horton acting as scribe in my presence at the time of the encounter and accurately reflects the service I personally performed. ED Prescriptions None Sign Off Checklist Clinical Impression: Complete ED Disposition: Complete - Agnes Cooley MD 04/13/23 0031 * ED Triage Notes - Carlton Sr, RN - 04/08/2023 9:58 AM EST Pt complains of stabbing abdominal pain with NVD that began around 0100. documented in this encounter Plan of Treatment Not on file documented as of this encounter Procedures Procedure Name Priority Date/Time Associated Diagnosis Comments EXTRA TUBE LIGHT GREEN TOP Routine 04/08/2023 12:25 PM EST EXTRA TUBES Routine 04/08/2023 12:25 PM EST LACTATE, VENOUS STAT 04/08/2023 12:11 PM EST CBC WITH AUTO DIFFERENTIAL STAT 04/08/2023 12:11 PM EST TEST QUALITATIVE PLASMA STAT 04/08/2023 12:11 PM EST MAGNESIUM, PLASMA STAT 04/08/2023 12: 11 PM EST LIPASE, PLASMA STAT 04/08/2023 12:11 PM EST COMPREHENSIVE METABOLIC PANEL, PLASMA STAT 04/08/2023 12:11 PM EST documented in this encounter Results * Light Green Top (04/08/2023 12:25 PM EST) [facility] Extra Hold for add-ons 04/08/2023 3:01 PM EST [facility] Comment:Auto resulted. Blood Venous blood specimen / Unknown Venipuncture / Unknown 04/08/2023 12:25 PM EST 04/08/2023 12:23 PM EST us Agnes Cooley MD LAB BLOOD ORDERABLES Final R esult Performing Organization Address City/[facility]/ZIP Co de Phone Number HEALTHCARE LAB [address] [place] [address] * hCG qualitative (04/08/2023 12:11 PM EST) [facility] Test Negative Negative 04/08/2023 1:17 PM EST [facility] Blood Venous blood specimen / Unknown Venipuncture / Unknown 04/08/2023 12:11 PM EST 04/08/2023 12:23 PM EST Narrative [facility] - 04/08/2023 1:17 PM EST Reference Range: Males and non- females: Negative. us Agnes Cooley MD LAB BLOOD ORDERABLES Final R esult Performing Organization Address City/[facility] Co de Phone Number [facility]ALTHCARE [facility] [address] [place] [address] * Lactic acid, venous (04/08/2023 12:11 PM EST) [facility] Lactate, Venous, Whole Blood 1.4 0.5 - 2.2 mmol/L LAB HEMATOLOGY METHOD 04/08/2023 12:24 PM EST [facility] Blood Venous blood specimen / Unknown Venipuncture / Unknown 04/08/2023 12:11 PM EST 04/08/2023 12:20 PM EST us Agnes Cooley MD LAB BLOOD ORDERABLES Final R esult Performing Organization Address City/[facility]/ZIP Co de Phone Number [facility] [address] [place] [address] * Lipase (04/08/2023 12:11 PM EST) Lipase, Plasma 29 19 - 63 U/L 04/08/2023 1:17 PM EST [facility] Blood Venous blood specimen / Unknown Venipuncture / Unknown 04/08/2023 12:11 PM EST 04/08/2023 12:23 PM EST Agnes Cooley MD LAB BLOOD ORDERABLES Final R esult Performing Organization Address City/[facility]/ZIP Co de Phone Number [facility] [address] [place] [address] * Magnesium (04/08/2023 12:11 PM EST) Pathologist [facility] Magnesium, Plasma 2.0 1.9 - 2.4 mg/dL 04/08/2023 1:17 PM EST [facility] Blood Venous blood specimen / Unknown Venipuncture / Unknown 04/08/2023 12:11 PM EST 04/08/2023 12:23 PM EST Agnes Cooley MD LAB BLOOD ORDERABLES Final R esult Performing Organization Address City/[facility] Co de Phone Number [facility] [address] [place] [address] * (ABNORMAL) CMP (04/08/2023 12:11 PM EST) Pathologist [facility] Glucose, Plasma 96 74 - 99 mg/dL 04/08/2023 1:17 PM EST [facility] BUN, Plasma 7 7 - 21 mg/dL 04/08/2023 1:17 PM EST [facility] Creatinine, Plasma 0.49(L) 0.60 - 1.10 mg/dL 04/08/2023 1:17 PM EST [facility] BUN/Creatinine Ratio 14 04/08/2023 1:17 PM EST [facility] Sodium, Plasma 139 136 - 145 mmol/L 04/08/2023 1:17 PM EST [facility] Potassium, Plasma 4.8 3.7 - 4.8 mmol/L 04/08/2023 1:17 PM EST [facility] Comment:Hemolyzed, result ma y be falsely increased. Chloride, Plasma 101 97 - 107 mmol/L 04/08/2023 1:17 PM EST [facility] CO2, Plasma 22 22 - 29 mmol/L 04/08/2023 1:17 PM EST [facility] Anion Gap 16 6 - 16 mmol/L 04/08/2023 1:17 PM EST [facility] Total Calcium, Plasma 9.8 8.9 - 10.2 mg/dL 04/08/2023 1:17 PM EST [facility] Total Protein 7.9 6.3 - 7.9 g/dL 04/08/2023 1:17 PM EST [facility] Albumin, Plasma 4.5 3.5 - 5.2 g/dL 04/08/2023 1:17 PM EST [facility] AST, Plasma 37(H) 10 - 35 U/L 04/08/2023 1:17 PM [facility] Comment:Hemolyzed, result ma y be falsely increased. ALT, Plasma 30 10 - 35 U/L 04/08/2023 1:17 PM EST [facility] Alkaline Phosphatase, Plasma 120(H) 35 - 104 U/L 04/08/2023 1:17 PM [facility] Total Bilirubin, Plasma 0.4 0.2 - 1.1 mg/dL 04/08/2023 1:17 PM EST [facility] eGFRcr 125.4 mL/min/1.7 3m*2 04/08/2023 1:17 PM [facility] Comment:Reported eGFRcr in m L/min/1.73m2 is based the CKD-EPI 2020 equation that does not use a race coefficient. Blood Venous blood specimen / Unknown Venipuncture / Unknown 04/08/2023 12:11 PM EST 04/08/2023 12:23 PM EST us Agnes Cooley MD LAB BLOOD ORDERABLES Final R esult [facility] [address] [place] [address] * (ABNORMAL) CBC w/diff (04/08/2023 12:11 PM EST) WBC Count 5.65 3.70 - 10.30 10*3/uL LAB HEMATOLOGY METHOD 04/08/2023 12:24 PM EST [facility] RBC Count 4.63 3.90 - 5.20 10*6/uL LAB HEMATOLOGY METHOD 04/08/2023 12:24 PM EST [facility] HGB 12.2 11.2 - 15.7 g/dL LAB HEMATOLOGY METHOD 04/08/2023 12:24 PM EST [facility] HCT 37.9 34.0 - 45.0 % LAB HEMATOLOGY METHOD 04/08/2023 12:24 PM EST [facility] Platelet Count 264 155 - 369 10*3/uL LAB HEMATOLOGY METHOD 04/08/2023 12:24 PM EST [facility] MCV 82 79 - 98 fL LAB HEMATOLOGY METHOD 04/08/2023 12:24 PM EST [facility] MCH 26.3 26.0 - 32.0 pg LAB HEMATOLOGY METHOD 04/08/2023 12:24 PM EST [facility] MCHC 32.2 30.7 - 35.5 g/dL LAB HEMATOLOGY METHOD 04/08/2023 12:24 PM [facility] RDW 16.9(H) 11.5 - 14.5 % LAB HEMATOLOGY METHOD 04/08/2023 12:24 PM [facility] MPV 9.6 8.8 - 12.5 fL LAB HEMATOLOGY METHOD 04/08/2023 12:24 PM [facility] nRBC 0.0 <=0.0 per 100 WBCs LAB HEMATOLOGY METHOD 04/08/2023 12:24 PM [facility] Differential Type Automated LAB HEMATOLOGY METHOD 04/08/2023 12:24 PM [facility] Neutrophils % 63.0 % LAB HEMATOLOGY METHOD 04/08/2023 12:24 PM EST [facility] Lymphocytes % 27.0 % LAB HEMATOLOGY METHOD 04/08/2023 12:24 PM [facility] Monocytes % 5.0 % LAB HEMATOLOGY METHOD 04/08/2023 12:24 PM [facility] Eosinophils % 3.0 % LAB HEMATOLOGY METHOD 04/08/2023 12:24 PM [facility] Basophils % 1.0 % LAB HEMATOLOGY METHOD 04/08/2023 12:24 PM EST [facility] Immature Granulocytes % 1.0 % LAB HEMATOLOGY METHOD 04/08/2023 12:24 PM [facility] Neutrophils Absolute 3.65 1.60 - 6.10 10*3/uL LAB HEMATOLOGY METHOD 04/08/2023 12:24 PM EST [facility] Lymphocytes Absolute 1.51 1.20 - 3.90 10*3/uL LAB HEMATOLOGY METHOD 04/08/2023 12:24 PM EST [facility] Monocytes Absolute 0.26(L) 0.30 - 0.90 10*3/uL LAB HEMATOLOGY METHOD 04/08/2023 12:24 PM EST [facility] Eosinophils Absolute 0.16 0.00 - 0.50 10*3/uL LAB HEMATOLOGY METHOD 04/08/2023 12:24 PM EST [facility] Basophils Absolute 0.04 0.00 - 0.10 10*3/uL LAB HEMATOLOGY METHOD 04/08/2023 12:24 PM EST [facility] Immature Granulocytes Absolute 0.03 0.00 - 0.06 10*3/uL LAB HEMATOLOGY METHOD 04/08/2023 12:24 PM EST [facility] Blood Venous blood specimen / Unknown Venipuncture / Unknown 04/08/2023 12:11 PM EST 04/08/2023 12:22 PM EST Narrative [facility] - 04/08/2023 12:24 PM EST Therapeutic decision making should be based on absolute values, rather than percentages. us Agnes Cooley MD LAB BLOOD ORDERABLES Final R esult [facility] [address] [place] [id number] documented in this encounter Visit Diagnoses Diagnosis Nausea and vomiting, unspecified vomiting type- Primary Chronic abdominal pain Abdominal pain, unspecified site documented in this encounter Administered Medications Inactive Administered Medications - up to 3 most recent administrations Medication Order MAR Action Action Date Dose Rate Site acetaminophen (Tylenol) tablet 500 mg 500 mg, Oral, Once, 1 dose, On Thu04/08/23 at 1145, STAT Given 04/08/2023 12:10 PM EST 500 mg lactated Ringer's infusion 1,000 mL 1,000 mL, Intravenous, Once, 1 dose, On Thu04/08/23 at 1145, STAT New Bag 04/08/2023 12:11 PM EST 1,000 mL morphine PF 4 mg 4 mg, Intravenous, Once, 1 dose, On Thu04/08/23 at 1220, STAT Given 04/08/2023 12:27 PM EST 4 mg ondansetron (Zofran) injection 4 mg 4 mg, Intravenous, Once, 1 dose, On Thu04/08/23 at 1145, STAT Given 04/08/2023 12:09 PM EST 4 mg oxyCODONE (Roxicodone) immediate release tablet 5 mg 5 mg, Oral, Once, 1 dose, On Thu04/08/23 at 1325, STAT Given 04/08/2023 1:51 PM EST 5 mg promethazine (Phenergan) tablet 25 mg 25 mg, Oral, Once, 1 dose, On Thu04/08/23 at 1325, STAT Given 04/08/2023 1:51 PM EST 25 mg documented in this encounter Active and Recently Administered Medications Times are shown in EST. Scheduled Medication Order 04/06/2023 04/07/2023 04/08/2023 acetaminophen (Tylenol) tablet 500 mg (COMPLETED) 500 mg, Oral, Once, 1 dose, On Thu04/08/23 at 1145, STAT 1210 (Given - Provid er: Carlton Sr RN) lactated Ringer's infusion 1,000 mL (COMPLETED) 1,000 mL, Intravenous, Once, 1 dose, On Thu04/08/23 at 1145, STAT 1211 (New Bag - Prov ider: Carlton Sr RN)1423 (Stopped - Provider: Carlton Sr RN) morphine PF 4 mg (COMPLETED) 4 mg, Intravenous, Once, 1 dose, On Thu04/08/23 at 1220, STAT 1227 (Given - Provid er: Sherrill Angel RN) ondansetron (Zofran) injection 4 mg (COMPLETED) 4 mg, Intravenous, Once, 1 dose, On Thu04/08/23 at 1145, STAT 1209 (Given - Provid er: Carlton Sr RN) oxyCODONE (Roxicodone) immediate release tablet 5 mg (COMPLETED) 5 mg, Oral, Once, 1 dose, On Thu04/08/23 at 1325, STAT 1351 (Given - Provid er: Sherrill Angel RN) promethazine (Phenergan) tablet 25 mg (COMPLETED) 25 mg, Oral, Once, 1 dose, On Thu04/08/23 at 1325, STAT 1351 (Given - Provid er: Sherrill Angel RN) documented in this encounter Additional Health Concerns Assessment Noted Time A fall risk assessment has been complete d for the patient 11/21/2020 2:30 PM EDT A Body Mass Index follow-up plan has been documented for the patient 03/26/2023 12:22 PM EST documented as of this encounter Care Teams Demurrage Clerk Relationship Specialty Start Date End Date Citlali Marquez, ESTEBAN [address] [place] [address] PCP - General Family Medicine 03/26/23 10/19/23 documented as of this encounter
--- OUTSIDE RECORDS SUMMARY | 2024-02-03 15:13 | XMS_ITS | Encounter Summary ---
Author Organization [facility] Address [address] [place] [address] Care Team Providers Care Bar Turner Name Role Phone JimmyCitlali lowe Gilberto ORELLANA Primary Care Provider [phone] Encounter Details Date Type Department Care Team (Latest Contact Info) Description 04/08/2023 Travel Social History Tobacco Use Types Packs/Day [...] in a senior living (including now)? 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
--- OUTSIDE RECORDS SUMMARY | 2024-02-03 15:13 | XMS_ITS | Encounter Summary ---
Author Organization Healthcare Address [address] [place] [address] Care Team Providers Care Earth Science Professor Name Role Phone AuburnCitlali lowe Gilberto ORELLANA Primary Care Provider [phone] Reason for Visit * Reason Comments Pancreatitis Encounter Details Date Type Department Care Team (Late st Contact Info) Description 04/04/2023 3:12 PM EST - 04/04/2023 5:24 PM EST Emergency [facility] Emergency Department [address] [place] [address] Kayla Ramos MD [address] [place] [address] Abdominal pain, chronic, epigastric (Primary Dx) Discharge Disposition: Home or [...] drink first t caleb in the morning (EYE-LIST [employer]OB IDEAS) to steady your nerves or to get [...] Sign Reading Time Taken Comments Blood Pressure 148/103 04/04/2023 3:10 PM EST Pulse 95 04/04/2023 3:10 PM EST Temperature 36.7 ??C (98 ??F) 04/04/2023 3:10 PM EST Respiratory Rate 18 04/04/2023 3:10 PM EST Oxygen Saturation 98% 04/04/2023 3:10 PM EST Inhaled Oxygen Concentration - - Weight - - Height - - Body Mass Index - - documented in this encounter Discharge Instructions * Discharge Instructions* Kiesha Lopez PA - 04/04/2023 5:06 PM EST You have been evaluated in the Emergency Department today for abdominal pain. Your evaluation did not show evidence of medical conditions requiring emergent intervention at this time. Please follow up with your primary care physician and pain clinic in 2-3 days. Return to the Emergency Department if you experience any new or concerning symptoms. Thank you for choosing us [...] if needed for nausea. 12 tablet 04/02/2023 acetaminophen (Tylenol) 500 MG tablet Take 2 [...] 5 doses. 10 tablet 03/25/2023 4 pancrelipase, Cym-Ksoz-Focj, (Creon) [id number] units capsule Take 1 capsule by mouth [...] Miscellaneous Notes * ED Provider Notes - Kiesha Lopez PA - 04/04/2023 2:49 PM EST Images from the original note were not included. - HPI Chief Complaint Patient presents with Pancreatitis Lila Mcnally is a 37 y.o. female with h/o chronic pancreatitis who presents to the ED for evaluation of abdominal pain. Pain is located primarily in her epigastric region and radiates to her back. Pain is associated with decreased appetite, nausea and dry heaving. Reports has been going on for several months and she has not had relief in at least a month. Patient reports that her pain began approximately 3 years ago after having an ERCP to remove a gallstone that was lodged in her pancreatic duct. Reports multiple ED visits in the last year for similar pain. Patient also endorses that shehas an appointment with the pain Clinic and GI clinic at the end of this month to receive a pain pump. Patient reports she has not vomited but that her nausea has been causing her to dry heave. Denies diarrhea/constipation, denies blood in stool. Patient reports that today's pain resembles all previous episodes of pain. 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 by: Patient bilingual interpreter used: No No data recorded Patient History Past Medical History: Diagnosis Date Anxiety Arthritis Depression Fibromyalgia Gastric erosions 04/19/2021 GERD (gastroesophageal reflux disease) Hypertension Intentional overdose ([facility]) 12/20/2021 Nicotine dependence Obesity Pancreatitis Past Surgical [...] pain and palpitations. Gastrointestinal: Positive for abdominal pain and nausea. Negative for abdominal distention, anal bleeding, blood in stool, constipation, diarrhea and vomiting. Genitourinary: Negative for difficulty urinating, dysuria and hematuria. Musculoskeletal: Positive for back pain. Negative for arthralgias. Skin: Negative for color change and rash. All other systems reviewed and are negative. Physical Exam ED Triage Vitals [04/04/23 1510] Temp Heart Rate Resp BP 36.7 ??C (98 ??F) 95 18 (!) 148/103 SpO2 Temp Source Heart Rate Source Patient [...] is no right CVA tenderness, left CVA tenderness, guarding or rebound. Musculoskeletal: General: No swelling. Cervical back: Neck supple. Skin: General: Skin is warm and dry. Capillary Refill: Capillary refill takes less than 2 seconds. Neurological: Mental Status: She is alert. Psychiatric: Mood and Affect: Mood normal. ED Course & MDM ED Course as of 04/04/231805 Sat Apr 04, 2023 1601 CBC w/diff(!) Essentially unremarkable - no leukocytosis, hemoglobin stable [SN] 1603 Lactate: 0.9 [SN] 1633 CMP(!) Essentially unremarkable - kidney and liver function intact, electrolytes WNL [SN] 1633 Lipase: 22 [SN] ED Course User Index [SN] Kiesha Lopez PA Clinical Impressions as of 04/04/231805 Abdominal pain, chronic, epigastric - Medical Decision Making Patient was initially evaluated in coordination with Dr. Ramos. In summary, Lila Mcnally is a 37 y.o. female who presents to the ED for evaluation of abdominal pain. VSS. Pt afebrile, hemodynamically stable, in no respiratory distress, and nontoxic in appearance upon arrival & throughout the entire stay in the ED. On physical exam, there was generalized tenderness to palpation of the abdomen without peritoneal signs. DDx includes chronic pancreatitis, malingering, narcotic bowel syndrome,colitis among other things. All were considered. In order to fully explore differential these tests and treatments were ordered. Orders Placed This Encounter Procedures CMP Lipase CBC w/diff Lactic acid, venous Medications lactated Ringer's infusion 1,000 mL (0 mL Intravenous Stopped 04/04/23 1720) HYDROmorphone (Dilaudid) injection 0.5 mg (0.5 mg Intravenous Given 04/04/23 1538) ondansetron (Zofran) injection 4 mg (4 mg Intravenous Given 04/04/23 1539) HYDROmorphone (Dilaudid) injection 0.25 mg (0.25 mg Intravenous Given 04/04/23 162) ondansetron (Zofran) injection 4 mg (4 mg Intravenous Given 04/04/23 162) oxyCODONE (Roxicodone) immediate release tablet 10 mg (10 mg Oral Given 04/04/23 1720) Per chart review, patient has never displayed evidence of pancreatitis on prior imaging, has had minor elevations in lipase in the past. Has had multiple ED visits in the past, with 17 ED visits since the start of 2023. Today's laboratory evaluation was unremarkable, with a normal lipase. Patient has had multiple CT A/P with most recent being on 03/14. I did not feel that exposing the patient to further radiation by performing an additional CT A/P would be beneficial or change her management. Lactated Ringer's and Zofran administered. Patient was given 2 doses of Dilaudid with improvement of her pain. She was given 10 mg of oxycodone with further improvement. Very low clinical suspicion for any acute abdominal or other process occurring at this time. I felt that this patient likely has opioid dependence and/or narcotic bowel syndrome due to her opioid dependence. Patient was stable and appropriate for discharge at this time. Instructed to follow up with pain Clinic and GI. Given strict return precautions prior to discharge. Last PDMP Review: Kayla Ramos MD on 04/04/2023 4:50 PM ED Prescriptions None Discharge Instructions You have been evaluated in the Emergency Department today for abdominal pain. Your evaluation did not show evidence of medical conditions requiring emergent intervention at this time. Please follow up with your primary care physician and pain clinic in 2-3 days. Return to the Emergency Department if you experience any new or concerning symptoms. Thank you for choosing us for your care. Disposition Discharge AVS (Printed 04/04/2023) Follow-Ups: Follow up with Citlali Marquez APRN (Family Medicine) Sign Off Checklist Clinical Impression: Complete ED Disposition: Complete - Kiesha Lopez PA 04/04/23 [id number] Cosigned by Kayla Ramos MD at 04/04/2023 6:20 PM EST Associated attestation - Kayla Ramos MD - 04/04/2023 6:20 PM EST I attest to being involved in providing substantive part of the medical decision making in patient care. * ED Triage Notes - Alexandria Hernandez RN - 04/04/2023 2:49 PM EST Pt reports that she has chronic pancreatitis and is experiencing a flare up. She rates her abdominal pain 12/02 and describes it as stabbing and throbbing , is having persistent nausea and vomiting,and she is unable to tolerate anything PO. She has taken all her medications as prescribed without any relief. She has an appointment with a pain clinic on 04/20 to establish care. documented in this encounter Plan of Treatment Not on file documented as of this encounter Procedures Procedure Name Priority Date/Time Associated Diagnosis Comments LACTATE, VENOUS STAT 04/04/2023 3:44 PM EST CBC WITH AUTO DIFFERENTIAL STAT 04/04/2023 3:44 PM EST LIPASE, PLASMA STAT 04/04/2023 3:44 PM EST COMPREHENSIVE METABOLIC PANEL, PLASMA STAT 04/04/2023 3:44 PM EST documented in this encounter Results * Lactic acid, venous (04/04/2023 3:44 PM EST) Lactate, Venous, Whole Blood 0.9 0.5 - 2.2 mmol/L LAB HEMATOLOGY METHOD 04/04/2023 3:49 PM EST [facility] Blood Venous blood specimen / Unknown Venipuncture / Unknown 04/04/2023 3:44 PM EST 04/04/2023 3:47 PM EST us Summar Jessica NAJERA LAB BLOOD ORDERABLES Final Resu lt [facility] [address] [place] [address] * (ABNORMAL) CBC w/diff (04/04/2023 3:44 PM EST) WBC Count 5.06 3.70 - 10.30 10*3/uL LAB HEMATOLOGY METHOD 04/04/2023 3:49 PM EST [facility] RBC Count 4.03 3.90 - 5.20 10*6/uL LAB HEMATOLOGY METHOD 04/04/2023 3:49 PM EST [facility] HGB 10.5(L) 11.2 - 15.7 g/dL LAB HEMATOLOGY METHOD 04/04/2023 3:49 PM EST [facility] HCT 32.3(L) 34.0 - 45.0 % LAB HEMATOLOGY METHOD 04/04/2023 3:49 PM EST [facility] Platelet Count 203 155 - 369 10*3/uL LAB HEMATOLOGY METHOD 04/04/2023 3:49 PM EST [facility] MCV 80 79 - 98 fL LAB HEMATOLOGY METHOD 04/04/2023 3:49 PM EST [facility] MCH 26.1 26.0 - 32.0 pg LAB HEMATOLOGY METHOD 04/04/2023 3:49 PM EST [facility] MCHC 32.5 30.7 - 35.5 g/dL LAB HEMATOLOGY METHOD 04/04/2023 3:49 PM EST [facility] RDW 16.4(H) 11.5 - 14.5 % LAB HEMATOLOGY METHOD 04/04/2023 3:49 PM EST [facility] MPV 9.2 8.8 - 12.5 fL LAB HEMATOLOGY METHOD 04/04/2023 3:49 PM EST [facility] nRBC 0.0 <=0.0 per 100 WBCs LAB HEMATOLOGY METHOD 04/04/2023 3:49 PM EST [facility] Differential Type Automated LAB HEMATOLOGY METHOD 04/04/2023 3:49 PM EST [facility] Neutrophils % 64.0 % LAB HEMATOLOGY METHOD 04/04/2023 3:49 PM EST [facility] Lymphocytes % 27.0 % LAB HEMATOLOGY METHOD 04/04/2023 3:49 PM EST [facility] Monocytes % 5.0 % LAB HEMATOLOGY METHOD 04/04/2023 3:49 PM EST [facility] Eosinophils % 2.0 % LAB HEMATOLOGY METHOD 04/04/2023 3:49 PM EST [facility] Basophils % 1.0 % LAB HEMATOLOGY METHOD 04/04/2023 3:49 PM EST [facility] Immature Granulocytes % 1.0 % LAB HEMATOLOGY METHOD 04/04/2023 3:49 PM EST [facility] Neutrophils Absolute 3.22 1.60 - 6.10 10*3/uL LAB HEMATOLOGY METHOD 04/04/2023 3:49 PM EST [facility] Lymphocytes Absolute 1.38 1.20 - 3.90 10*3/uL LAB HEMATOLOGY METHOD 04/04/2023 3:49 PM EST [facility] Monocytes Absolute 0.26(L) 0.30 - 0.90 10*3/uL LAB HEMATOLOGY METHOD 04/04/2023 3:49 PM EST [facility] Eosinophils Absolute 0.12 0.00 - 0.50 10*3/uL LAB HEMATOLOGY METHOD 04/04/2023 3:49 PM EST [facility] Basophils Absolute 0.05 0.00 - 0.10 10*3/uL LAB HEMATOLOGY METHOD 04/04/2023 3:49 PM EST [facility] Immature Granulocytes Absolute 0.03 0.00 - 0.06 10*3/uL LAB HEMATOLOGY METHOD 04/04/2023 3:49 PM EST [facility] Blood Venous blood specimen / Unknown Venipuncture / Unknown 04/04/2023 3:44 PM EST 04/04/2023 3:47 PM EST Narrative [facility] - 04/04/2023 3:49 PM EST Therapeutic decision making should be based on absolute values, rather than percentages. us Summar Jessica [place] LAB BLOOD ORDERABLES Final Resu lt [facility] [address] [place] [id number] * Lipase (04/04/2023 3:44 PM EST) Lipase, Plasma 22 19 - 63 U/L 04/04/2023 4:13 PM EST [facility] Blood Venous blood specimen / Unknown Venipuncture / Unknown 04/04/2023 3:44 PM EST 04/04/2023 3:47 PM EST us Summar Jessica PA LAB BLOOD ORDERABLES Final Resu lt [facility] [address] [place] [address] * (ABNORMAL) CMP (04/04/2023 3:44 PM EST) Glucose, Plasma 100(H) 74 - 99 mg/dL 04/04/2023 4:13 PM EST [facility] BUN, Plasma 10 7 - 21 mg/dL 04/04/2023 4:13 PM EST [facility] Creatinine, Plasma 0.58(L) 0.60 - 1.10 mg/dL 04/04/2023 4:13 PM EST [facility] BUN/Creatinine Ratio 17 04/04/2023 4:13 PM [facility] Sodium, Plasma 141 136 - 145 mmol/L 04/04/2023 4:13 PM [facility] Potassium, Plasma 4.0 3.7 - 4.8 mmol/L 04/04/2023 4:13 PM [facility] Chloride, Plasma 108(H) 97 - 107 mmol/L 04/04/2023 4:13 PM [facility] CO2, Plasma 20(L) 22 - 29 mmol/L 04/04/2023 4:13 PM [facility] Anion Gap 13 6 - 16 mmol/L 04/04/2023 4:13 PM [facility] Total Calcium, Plasma 9.6 8.9 - 10.2 mg/dL 04/04/2023 4:13 PM EST [facility] Total Protein 7.1 6.3 - 7.9 g/dL 04/04/2023 4:13 PM [facility] Albumin, Plasma 4.1 3.5 - 5.2 g/dL 04/04/2023 4:13 PM [facility] AST, Plasma 15 10 - 35 U/L 04/04/2023 4:13 PM [facility] ALT, Plasma 12 10 - 35 U/L 04/04/2023 4:13 PM [facility] Alkaline Phosphatase, Plasma 94 35 - 104 U/L 04/04/2023 4:13 PM [facility] Total Bilirubin, Plasma 0.3 0.2 - 1.1 mg/dL 04/04/2023 4:13 PM [facility] eGFRcr 120.5 mL/min/1.7 3m*2 04/04/2023 4:13 PM EST [facility] Comment:Reported eGFRcr in m L/min/1.73m2 is based the CKD-EPI 2020 equation that does not use a race coefficient. Blood Venous blood specimen / Unknown Venipuncture / Unknown 04/04/2023 3:44 PM EST 04/04/2023 3:47 PM EST us Summar Jessica NAJERA LAB BLOOD ORDERABLES Final Resu lt [facility] [address] [place] [address] documented in this encounter Visit Diagnoses Diagnosis Abdominal pain, chronic, epigastric- Primary documented in this encounter Administered Medications Inactive Administered Medications - up to 3 most recent administrations Medication Order MAR Action Action Date Dose Rate Site HYDROmorphone (Dilaudid) injection 0.25 mg 0.25 mg, Intravenous, Once, 1 dose, On 04/04/23 at 1605, STAT Given 04/04/2023 4:24 PM EST 0.25 mg HYDROmorphone (Dilaudid) injection 0.5 mg 0.5 mg, Intravenous, Once, 1 dose, On 04/04/23 at 1520, STAT Given 04/04/2023 3:38 PM EST 0.5 mg lactated Ringer's infusion 1,000 mL 1,000 mL, Intravenous, Once (Bolus), On 04/04/23 at 1520, STAT New Bag 04/04/2023 3:52 PM EST 1,000 mL ondansetron (Zofran) injection 4 mg 4 mg, Intravenous, Once, 1 dose, On 04/04/23 at 1520, STAT Given 04/04/2023 3:39 PM EST 4 mg ondansetron (Zofran) injection 4 mg 4 mg, Intravenous, Once, 1 dose, On 04/04/23 at 1605, STAT Given 04/04/2023 4:24 PM EST 4 mg oxyCODONE (Roxicodone) immediate release tablet 10 mg 10 mg, Oral, Once, 1 dose, On 04/04/23 at 1705, STAT Given 04/04/2023 5:20 PM EST 10 mg documented in this encounter Active and Recently Administered Medications Times are shown in EST. Scheduled Medication Order 04/02/2023 04/03/2023 04/04/2023 HYDROmorphone (Dilaudid) injection 0.25 mg (COMPLETED) 0.25 mg, Intravenous, Once, 1 dose, On 04/04/23 at 1605, STAT 1624 (Given - Provid er: Marybeth Lopez RN) HYDROmorphone (Dilaudid) injection 0.5 mg (COMPLETED) 0.5 mg, Intravenous, Once, 1 dose, On 04/04/23 at 1520, STAT 1538 (Given - Provid er: Marybeth Lopez RN) lactated Ringer's infusion 1,000 mL 1,000 mL, Intravenous, Once (Bolus), On 04/04/23 at 1520, STAT 1552 (New Bag - Prov ider: Marybeth Lopez RN)1720 (Stopped - Provider: Marybeth Lopez RN) ondansetron (Zofran) injection 4 mg (COMPLETED) 4 mg, Intravenous, Once, 1 dose, On 04/04/23 at 1520, STAT 1539 (Given - Provid er: Marybeth Lopez RN) ondansetron (Zofran) injection 4 mg (COMPLETED) 4 mg, Intravenous, Once, 1 dose, On 04/04/23 at 1605, STAT 1624 (Given - Provid er: Marybeth Lopez RN) oxyCODONE (Roxicodone) immediate release tablet 10 mg (COMPLETED) 10 mg, Oral, Once, 1 dose, On 04/04/23 at 1705, STAT 1720 (Given - Provid er: Marybeth Lopez RN) documented in this encounter Additional Health Concerns Assessment Noted Time A fall risk assessment has been complete d for the patient 11/21/2020 2:30 PM EDT A Body Mass Index follow-up plan has been documented for the patient 03/26/2023 12:22 PM EST documented as of this encounter Care Teams Earth Science Professor Relationship Specialty Start Date End Date Citlali Marquez APRN [facility] [place] [address] PCP - General Family Medicine 03/26/23 10/19/23 documented as of this encounter
--- OUTSIDE RECORDS SUMMARY | 2024-02-03 15:13 | XMS_ITS | Encounter Summary ---
Author Organization [facility] Address [address] [place] [address] Care Team Providers Care Nc Manager Name Role Phone JimmyCitlali lowe Gilberto ORELLANA Primary Care Provider [phone] Encounter Details Date Type Department Care Team (Latest Contact Info) Description 04/11/2023 Travel Social History Tobacco Use Types Packs/Day [...] money to buy more. Never true 02/21/20 Within the past 12 months, t he [...] slept in a alf (including now)? 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-CELEBRITY MANAGER) to steady your nerves or to [...] Infection Onset Date Last Indicated Resolved Time C. difficile Rule-Out 04/11/2023 04/12/20232023 8:38 AM EST Gastrointestinal Rule-Out 04/11/2023 04/12/2023 10:01 AM EST Assessment Noted Time A fall risk assessment has been complete d for the patient 11/21/2020 2:30 PM EDT A Body Mass Index follow-up plan has been documented for the patient 04/14/2023 2:24 PM EST documented as of this encounter Care Teams Nc Manager Relationship Specialty Start Date End Date Citlali Marquez APRN [address] [place] [address] PCP - General Family Medicine 03/26/23 10/19/23 documented as of this encounter
--- OUTSIDE RECORDS SUMMARY | 2024-02-03 15:13 | XMS_ITS | Encounter Summary ---
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 or to [...] Sign Reading Time Taken Comments Blood Pressure 154/85 04/02/2023 8:35 AM EST Pulse 109 04/02/2023 8:35 AM EST Temperature 36.8 ??C (98.2 ??F) 04/02/2023 8:35 AM ES T Respiratory Rate 16 04/02/2023 8:35 AM EST Oxygen Saturation 96% 04/02/2023 8:35 AM EST Inhaled Oxygen Concentration - - Weight 103 kg (227 lb 11.8 oz) 04/02/2023 8:35 A M EST Height 165.1 cm (5' 5 ) 04/02/2023 8:35 AM EST Body Mass Index 37.9 04/02/2023 8:35 AM EST documented in this encounter Medications at Time of Discharge pantoprazole (Protonix) 40 MG EC tablet Take 1 tablet (40 mg) by mouth 1 (one) time each day. Do not crush, chew, or split. fluconazole (Diflucan) 150 MG tablet Take 2 tablets (300 mg) by mouth 1 (one) time each day for 9 doses. 18 tablet 03/25/2023 4 ondansetron ODT (Zofran-ODT) 4 MG disintegrating [...] 5 doses. 10 tablet 03/25/2023 4 pancrelipase, Onh-Cmwi-Gpel, (Creon) [id number] units capsule Take 1 capsule by mouth [...] Miscellaneous Notes * ED Provider Notes - Carter Donis MD - 04/02/2023 8:24 AM EST Images from the original note were not included. - HPI Chief Complaint Patient presents with Abdominal Pain Lila Mcnally is a 37 y.o. female with history of Gastric erosions, GERD, and Pancreatitis who presents to the ED with abdominal pain. Pt states her diffuse abdominal pain began 2 days ago and hasworsened since onset. Pt describes her pain as stabbing and reports since onset it has began to radiate to her back. Pt also c.o associated N/V/D since onset of her pain. Pt denies associated bleeding. Pt endorses decrease PO intake since onset of symptoms. Pt denies any other medical complaints at this time. 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 Respiratory: Negative for chest tightness and shortness of breath. Cardiovascular: Negative for chest pain. Gastrointestinal: Positive for abdominal pain, diarrhea, nausea and vomiting. Negative for blood instool. Physical Exam ED Triage Vitals [04/02/23 0835] Temp Heart Rate Resp BP 36.8 ??C (98.2 ??F) 109 16 (!) 154/85 SpO2 Temp Source Heart Rate Source Patient Position 96 % Oral -- Sitting BP Location FiO2 [...] Abdomen is soft. Tenderness: There is no abdominal tenderness. Musculoskeletal: General: No swelling. Cervical back: Neck supple. Skin: General: Skin is warm and dry. Capillary Refill: Capillary refill takes less than 2 seconds. Neurological: Mental Status: She is alert. Psychiatric: Mood and Affect: Mood normal. ED Course & MDM ED Course as of 04/02/23 1104 Annabel Apr 02, 2023 1006 Lactate(!): 2.5 [ER] ED Course User Index [ER] Carter Donis MD Clinical Impressions as of 04/02/23 1104 Abdominal pain, epigastric - Medical Decision Making This patient arrives complaining of epigastric abdominal pain. She has a history of chronic pancreatitis. Differential includes pancreatitis, biliary pathology, gastritis, diverticulitis. Laboratory studies however reassuring aside from minimal elevation in lactate without leukocytosis or other metabolic derangement. Patient's symptoms are improving with treatment in the ED and she appears appropriate and stable for discharge to continue outpatient therapy for her chronic conditions Medications sodium chloride 0.9 % infusion 500 mL (has no administration in time range) oxyCODONE (Roxicodone) immediate release tablet 10 mg (has no administration in time range) ondansetron (Zofran) injection 4 mg (4 mg Intravenous Given 04/02/23 1028) morphine PF 4 mg (4 mg Intravenous Given 04/02/23 1029) 04/02/2023, 9:02 AM Scribe Attestation: This note was dictated to me, Batsheva Ibrahim, acting as a scribe for Carter Howard MD. Attending Attestation: This documentation was recorded by Batsheva Ibrahim acting as a scribe in my presence at the time of the encounter and accurately reflects the service I personally performed and the decisions made by me. ED Prescriptions Medication Sig Dispense Start Date End Date Auth. Provider ondansetron ODT (Zofran-ODT) 4 MG disintegrating tablet Take 1 tablet (4 mg) by mouth every 6 (six)hours if needed for nausea. 12 tablet 04/02/2023 05/02/2023 Carter Donis MD Disposition Discharge Sign Off Checklist Clinical Impression: Complete ED Disposition: Complete - Carter Donis MD 04/02/23 1104 * ED Triage Notes - Carlton Sr RN - 04/02/2023 8:24 AM EST Pt complains LUQ to middle pain with NV and can't eat or sleep. documented in this encounter Plan of Treatment Not on file documented as of this encounter Procedures Procedure Name Priority Date/Time Associated Diagnosis Comments MORPHOLOGY STAT 04/02/2023 9:58 AM EST LACTATE, VENOUS STAT 04/02/2023 9:58 AM EST CBC WITH AUTO DIFFERENTIAL STAT 04/02/2023 9:58 AM EST LIPASE, PLASMA STAT 04/02/2023 9:58 AM EST COMPREHENSIVE METABOLIC PANEL, PLASMA STAT 04/02/2023 9:58 AM EST documented in this encounter Results * Morphology (04/02/2023 9:58 AM EST) Pathologist [facility] RBC Morphology Slide Reviewed LAB HEMATOLOGY METHOD 04/02/2023 10:40 AM EST [facility] Platelet Estimate Platelet count not valid due to clumping. Appears normal. LAB HEMATOLOGY METHOD 04/02/2023 10:40 AM EST [facility] Clumped Platelets Present LAB HEMATOLOGY METHOD 04/02/2023 10:40 AM EST [facility] Blood Venous blood specimen / Unknown Venipuncture / Unknown 04/02/2023 9:58 AM EST 04/02/2023 10:00 AM EST us Carter Donis MD LAB BLOOD ORDERABLES Final Resul t Performing Organization Address City/[facility]/ZIP Co de Phone Number [facility] [address] [place] [address] * (ABNORMAL) Lactate, venous (04/02/2023 9:58 AM EST) Lactate, Venous, Whole Blood 2.5(H) 0.5 - 2.2 mmol/L LAB HEMATOLOGY METHOD 04/02/2023 10:02 AM EST [facility] Blood Venous blood specimen / Unknown Venipuncture / Unknown 04/02/2023 9:58 AM EST 04/02/2023 10:00 AM EST us Carter Donis MD LAB BLOOD ORDERABLES Final Resul t [facility] [address] [place] [address] * Lipase, Plasma (04/02/2023 9:58 AM EST) Lipase, Plasma 28 19 - 63 U/L 04/02/2023 10:32 AM EST [facility] Blood Venous blood specimen / Unknown Venipuncture / Unknown 04/02/2023 9:58 AM EST 04/02/2023 10:00 AM EST us Carter Donis MD LAB BLOOD ORDERABLES Final Resul t Performing Organization Address City/[facility]/ZIP Co de Phone Number [facility] [address] [place] [address] * (ABNORMAL) CBC and Differential (04/02/2023 9:58 AM EST) WBC Count 5.99 3.70 - 10.30 10*3/uL LAB HEMATOLOGY METHOD 04/02/2023 10:40 AM EST [facility] RBC Count 4.10 3.90 - 5.20 10*6/uL LAB HEMATOLOGY METHOD 04/02/2023 10:40 AM EST [facility] HGB 10.6(L) 11.2 - 15.7 g/dL LAB HEMATOLOGY METHOD 04/02/2023 10:40 AM EST [facility] HCT 33.8(L) 34.0 - 45.0 % LAB HEMATOLOGY METHOD 04/02/2023 10:40 AM EST [facility] Platelet Count LAB HEMATOLOGY METHOD 04/02/2023 10:40 AM EST [facility] Comment:Platelet count not v alid due to clumping. Appears Normal. MCV 82 79 - 98 fL LAB HEMATOLOGY METHOD 04/02/2023 10:40 AM EST [facility] MCH 25.9(L) 26.0 - 32.0 pg LAB HEMATOLOGY METHOD 04/02/2023 10:40 AM EST [facility] MCHC 31.4 30.7 - 35.5 g/dL LAB HEMATOLOGY METHOD 04/02/2023 10:40 AM EST [facility] RDW 16.2(H) 11.5 - 14.5 % LAB HEMATOLOGY METHOD 04/02/2023 10:40 AM EST [facility] MPV LAB HEMATOLOGY METHOD 04/02/2023 10:40 AM EST [facility] Comment:Not Measured nRBC 0.0 <=0.0 per 100 WBCs LAB HEMATOLOGY METHOD 04/02/2023 10:40 AM EST [facility] Differential Type Automated LAB HEMATOLOGY METHOD 04/02/2023 10:40 AM EST [facility] Neutrophils % 75.0 % LAB HEMATOLOGY METHOD 04/02/2023 10:40 AM EST [facility] Lymphocytes % 18.0 % LAB HEMATOLOGY METHOD 04/02/2023 10:40 AM EST [facility] Monocytes % 5.0 % LAB HEMATOLOGY METHOD 04/02/2023 10:40 AM EST [facility] Eosinophils % 1.0 % LAB HEMATOLOGY METHOD 04/02/2023 10:40 AM EST [facility] Basophils % 1.0 % LAB HEMATOLOGY METHOD 04/02/2023 10:40 AM EST [facility] Immature Granulocytes % 0.0 % LAB HEMATOLOGY METHOD 04/02/2023 10:40 AM EST [facility] Neutrophils Absolute 4.46 1.60 - 6.10 10*3/uL LAB HEMATOLOGY METHOD 04/02/2023 10:40 AM EST [facility] Lymphocytes Absolute 1.10(L) 1.20 - 3.90 10*3/uL LAB HEMATOLOGY METHOD 04/02/2023 10:40 AM EST [facility] Monocytes Absolute 0.30 0.30 - 0.90 10*3/uL LAB HEMATOLOGY METHOD 04/02/2023 10:40 AM EST [facility] Eosinophils Absolute 0.06 0.00 - 0.50 10*3/uL LAB HEMATOLOGY METHOD 04/02/2023 10:40 AM EST [facility] Basophils Absolute 0.05 0.00 - 0.10 10*3/uL LAB HEMATOLOGY METHOD 04/02/2023 10:40 AM EST [facility] Immature Granulocytes Absolute 0.02 0.00 - 0.06 10*3/uL LAB HEMATOLOGY METHOD 04/02/2023 10:40 AM EST [facility] Blood Venous blood specimen / Unknown Venipuncture / Unknown 04/02/2023 9:58 AM EST 04/02/2023 10:00 AM EST [facility] - 04/02/2023 10:40 AM EST Therapeutic decision making should be based on absolute values, rather than percentages. us Carter Donis MD LAB BLOOD ORDERABLES Final Resul t [facility] [address] [place] [address] * (ABNORMAL) Comprehensive Metabolic Panel, Plasma (04/02/2023 9:58 AM EST) Glucose, Plasma 82 74 - 99 mg/dL 04/02/2023 10:32 AM EST [facility] BUN, Plasma 7 7 - 21 mg/dL 04/02/2023 10:32 AM EST [facility] Creatinine, Plasma 0.61 0.60 - 1.10 mg/dL 04/02/2023 10:32 AM EST [facility] BUN/Creatinine Ratio 11 04/02/2023 10:32 AM EST [facility] Sodium, Plasma 143 136 - 145 mmol/L 04/02/2023 10:32 AM EST [facility] Potassium, Plasma 3.7 3.7 - 4.8 mmol/L 04/02/2023 10:32 AM EST [facility] Chloride, Plasma 106 97 - 107 mmol/L 04/02/2023 10:32 AM EST [facility] CO2, Plasma 22 22 - 29 mmol/L 04/02/2023 10:32 AM EST [facility] Anion Gap 15 6 - 16 mmol/L 04/02/2023 10:32 AM EST [facility] Total Calcium, Plasma 9.1 8.9 - 10.2 mg/dL 04/02/2023 10:32 AM EST [facility] Total Protein 6.8 6.3 - 7.9 g/dL 04/02/2023 10:32 AM EST [facility] Albumin, Plasma 3.8 3.5 - 5.2 g/dL 04/02/2023 10:32 AM EST [facility] AST, Plasma 22 10 - 35 U/L 04/02/2023 10:32 AM EST [facility] Comment:Hemolyzed, result ma y be falsely increased. ALT, Plasma 22 10 - 35 U/L 04/02/2023 10:32 AM EST [facility] Alkaline Phosphatase, Plasma 106(H) 35 - 104 U/L 04/02/2023 10:32 AM EST [facility] Total Bilirubin, Plasma <0.2(L) 0.2 - 1.1 mg/dL 04/02/2023 10:32 AM EST [facility] eGFRcr 119.0 mL/min/1.7 3m*2 04/02/2023 10:32 AM EST [facility] Comment:Reported eGFRcr in m L/min/1.73m2 is based the CKD-EPI 2020 equation that does not use a race coefficient. Blood Venous blood specimen / Unknown Venipuncture / Unknown 04/02/2023 9:58 AM EST 04/02/2023 10:00 AM EST us Carter Donis MD LAB BLOOD ORDERABLES Final Resul t [facility] [address] [place] [address] documented in this encounter Visit Diagnoses Diagnosis Abdominal pain, epigastric- Primary documented in this encounter Administered Medications Inactive Administered Medications - up to 3 most recent administrations Medication Order MAR Action Action Date Dose Rate Site morphine PF 4 mg 4 mg, Intravenous, Once, 1 dose, On Annabel 04/02/23 at 0930, STAT Given 04/02/2023 10:29 AM EST 4 mg ondansetron (Zofran) injection 4 mg 4 mg, Intravenous, Once, 1 dose, On Annabel 04/02/23 at 0930, STAT Given 04/02/2023 10:28 AM EST 4 mg oxyCODONE (Roxicodone) immediate release tablet 10 mg 10 mg, Oral, Every 4 hours PRN, 2 doses, Starting on Annabel 04/02/23 at 1103, Until Annabel 04/02/23 at 1331, Routine, severe pain Given 04/02/2023 11:19 AM EST 10 mg sodium chloride 0.9 % infusion 500 mL 500 mL, Intravenous, Once, 1 dose, On Annabel 04/02/23 at 0930, STAT New Bag 04/02/2023 10:28 AM EST 500 mL documented in this encounter Active and Recently Administered Medications Times are shown in EST. Scheduled Medication Order 03/31/2023 04/01/2023 04/02/2023 morphine PF 4 mg (COMPLETED) 4 mg, Intravenous, Once, 1 dose, On Annabel 24 at 0930, STAT 1029 (Given - Provid er: Dorys Donovan RN) ondansetron (Zofran) injection 4 mg (COMPLETED) 4 mg, Intravenous, Once, 1 dose, On Annabel 04/02/23 at 0930, STAT 1028 (Given - Provid er: Dorys Donovan RN) sodium chloride 0.9 % infusion 500 mL (COMPLETED) 500 mL, Intravenous, Once, 1 dose, On Annabel 04/02/23 at 0930, STAT 1028 (New Bag - Prov ider: Dorys Donovan RN)1122 (Stopped - Provider: Dorys Donovan RN) PRN Medication Order 03/31/2023 04/01/2023 04/02/2023 oxyCODONE (Roxicodone) immediate release tablet 10 mg 10 mg, Oral, Every 4 hours PRN, 2 doses, Starting on Annabel 04/02/23 at 1103, Until Annabel 04/02/23 at 1331, Routine, severe pain 1119 (Given - Provid er: Dorys Donovan RN) documented in this encounter Additional Health Concerns Assessment Noted Time A fall risk assessment has been complete d for the patient 11/21/2020 2:30 PM EDT A Body Mass Index follow-up plan has been documented for the patient 03/26/2023 12:22 PM EST documented as of this encounter Care Teams Hepatology Physician Relationship Specialty Start Date End Date Citlali Marquez APRN [address] [place] [address] PCP - General Family Medicine 03/26/23 10/19/23 documented as of this encounter
--- OUTSIDE RECORDS SUMMARY | 2024-02-03 15:13 | XMS_ITS | Encounter Summary ---
Author Organization Healthcare Address [address] [place] [address] Care Team Providers Care Back End Engineer Name Role Phone GorhamCitlali lowe Gilberto ORELLANA Primary Care Provider [phone] Reason for Referral * Consultation (Routine) - Authorized Specialty Diagnoses / Procedures Referred By Susy burks Referred To Contact Gastroenterology Diagnoses Left upper quadrant abdominal pain History of acute pancreatitis Intractable nausea and vomiting Sandhya Rae MD [address] [place] [address] Phone: tel: fax: Referral ID Status Reason Start Date Expiration Date Visits Requested Visits Authorized [id number] Authorized Specialty Services Required 04/14/2023 10/13/2024 1 1 Reason for Visit * Reason Comments Abdominal Pain * Auth/Cert (Routine) Specialty Diagnoses / Procedures Referred By Susy burks Referred To Contact Diagnoses Left upper quadrant abdominal pain Javier Pittman MD [address] [place] [address] Phone: tel: fax: [facility] [address] [place] [address] Phone: tel: Referral ID Status Reason Start Date Expiration Date Visits Re quested Visits Authorized [id number] 1 1 Encounter Details Date Type Department Care Team (Latest Contact Info) Description 04/11/2023 3:15 AM EST - 04/14/2023 3:47 PM EST Hospital Encounter [facility] [address] [place] [address] Javier Pittman MD [address] [place] [address] Shante Romano MD [address] [place] [address] Sandhya Rae MD [address] [place] [address] Left upper quadrant abdominal pain (Primary Dx); History of acute pancreatitis; Intractable nausea and vomiting Discharge Disposition: Home or Self Care Social History Tobacco Use Types Packs/Day Years Used Date Smoking Tobacco: Every Day Cigarettes 0.5 20 Smokeless Tobacco: Never Tobacco Cessation:Ready to Q uit: No; Counseling Given: Yes Alcohol Use Standard Drinks/Week Comments Not Currently [...] slept in a snf (including now)? 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-FORGING PRESS SETTER UP) to steady your nerves or to get [...] Sign Reading Time Taken Comments Blood Pressure 130/81 04/14/2023 7:42 AM EST Pulse 87 04/14/2023 7:42 AM EST Temperature 36.7 ??C (98 ??F) 04/14/2023 7:42 AM EST Respiratory Rate 16 04/14/2023 7:42 AM EST Oxygen Saturation 98% 04/14/2023 7:42 AM EST Inhaled Oxygen Concentration - - Weight 102 kg (225 lb 1.4 oz) 04/14/2023 9:00 AM EST Height 165.1 cm (5' 5 ) 04/14/2023 9:00 AM EST Body Mass Index 37.46 04/14/2023 9:00 AM EST documented in this encounter Functional Status [...] * Discharge Instructions* Lester Fitzpatrick PA - 04/11/2023 4:45 AM EST Keep appointment as scheduled with pain management for evaluation of pain pump * Attachments The following attachments cannot be sent through Care Everywhere. * Abdominal Pain, Adult (Central African) * Vomiting (Adult) (Central African) documented in this encounter Medications at Time [...] needed for nausea. 12 tablet 04/02/2023 4 oxyCODONE (Roxicodone) 10 MG immediate release tablet Take 1 tablet (10 mg) by mouth every 6 (six) hours if needed for moderate pain or severe pain for up to 2 days. 8 tablet 04/14/2023 4 cholecalciferol (Vitamin D3) 125 MCG (5000 [...] symptoms continue 1 each 02/23/2023 4 pancrelipase, Rud-Gqvq-Joax, (Creon) 6000-34815 units capsule Take 1 capsule by mouth [...] encounter Miscellaneous Notes * Discharge Summary - Sandhya Rae MD - 04/14/2023 3:47 PM EST Hospitalization Admit Date/Time: 04/11/2023 3:15 AM Admitting Attending: Javier Pittman Discharge Date: 04/14/2023 Discharge Attending Physician: Sandhya Rae MD PCP name and Address: Citlali Marquez, [address] [address] Referring provider name and address: No referring provider defined for this encounter. Chief Concern, Brief History of Present Illness, and Hospital Course As documented in history and physical 37 y.o. year-old female who has a past medical history of Anxiety, Arthritis, Depression, Fibromyalgia, Gastric erosions, GERD (gastroesophageal reflux disease), Hypertension, Intentional overdose, Nicotine dependence, Obesity, and Pancreatitis who presents to [facility] ED due to left upperquadrant abdominal pain with nausea, vomiting, and diarrhea. Patient reports that she began having left upper quadrant abdominal pain with nausea and vomiting 04/08. This ED visit is the 7th x the patient has been seen in our ED over the last 2 weeks with similar symptoms. It is noted that the patient has been admitted several times for acute on chronic pancreatitis, but per all the CT imaging ther e is no evidence of pancreatitis. Lipase is occasionally elevated in the low 100s, but there has not been a significant elevation since 08/2022 when lipase was 696. Lipase on arrival tonight was 36. Patient report left upper quadrant sharp, stabbing, constant pain worse with movement. Patient is tachycardic in the 110s and very tearful, guarding her abdomen on exam. She denies being able to keep anything down since 04/08. Patient notes that she has an appointment with pain management on the to be evaluated for a pain pump and she just needs to get through to that appointment. Patient denies fever, chills, hematemesis, hematochezia, SOA, or cough. Patient to be admitted to Hospital Medicine for further work up and care. Hospital Course PATIENT FOLLOWS WITH FAMILY MEDICINE OUTPATIENT 37 y.o. year-old female who has a past medical history of Anxiety, Arthritis, Depression, Fibromyalgia, Gastric erosions, GERD (gastroesophageal reflux disease), Hypertension, Intentional overdose, Nicotine dependence, Obesity, and Pancreatitis who presents to [facility] ED due to left upperquadrant abdominal pain with nausea, vomiting, and diarrhea. Admitted with acute on chronic pain. Likely exacerbation of pancreatitis related to recent alcohol intake. Transitioned effectively to oral opioids and was able to tolerate liquid diet with low-fat solid foods prior to discharge. She will follow up with pain clinic for nerve block and with GI clinic. chronic alcoholic pancreatitis - per hx 4 days of intense left upper quadrant abdominal pain with intractable nausea, vomiting, and diarrhea - Lipase 36 (does not elevated always in chronic pancreatitis patients with flare) - Zofran and promethazine PRN for nausea - IVF for rehydration - CLD as tollerated - Strict Is & Os with daily weights - Restart home vitamin D, B12, pancrelipase and sucralfate when tolerating PO -no diarrhea or vomiting during admission 2. Acute on chronic pain secondary to #1 complicated by fibromyalgia - Continue home lyrica with PRN tylenol and ibuprofen - Order 10mg oxy q4h with .5mg dilaudid q6 PRN for breakthrough pain - Miralax PRN for constipation - Monitor on continuous pulse oxymetry due to increased narcotics -most likely poor pain tolerance is related to coexisting depression, anxiety. -PT may benefit from OPT psychiatric evaluation to control above -transitioned from IV pain control to po 3. Mild Hyperglycemia - Likely reactive -HG A1C 5.2 - Glucose: 112 - Continue to monitor with AM labs 4. Normocytic Anemia - Likely due to choric inflammation - Hgb: 10.3 - Continue to monitor with AM labs - Transfuse if Hgb < 7 Chronic Medical Conditions: #) GERD- Continue home PPI and H2 janki #) Anxiety and Depression - Continue home duloxetine and ativan -PT will benefit from OP Psych evaluation #) Insomnia- Continue melatonin HS for sleep #) Nicotine Dependence with withdrawals - INRT and smoking cessation counselling. -PT aware that smoking is increasing risks for pancreatitis #) Marijuana use- Encourage cessation #) Obesity - BMI: 38.89 - Complicates all aspects of care Surgeries and Procedures Medication List .. acetaminophen 500 MG tablet Commonly known as: Tylenol Take 2 tablets (1,000 mg) by mouth every 6 (six) hours for 10 days. cholecalciferol 125 MCG (5000 UT) capsule Commonly known as: Vitamin D-3 Take 1 capsule (5,000 Units) by mouth 1 (one) time each day. cyanocobalamin 1000 MCG tablet Commonly known as: Vitamin B-12 Take 1 tablet (1,000 mcg) by mouth 1 (one) time each day. DULoxetine [address] capsule Commonly known as: Cymbalta Take 1 capsule (60 mg) by mouth 1 (one) time each day. Do not crush or chew. HM Lidocaine Patch 4 % patch Generic drug: Lidocaine Apply 1 patch topically 2 (two) times a day if needed (Left shoulder). ibuprofen 800 MG tablet Take 1 tablet (800 mg) by mouth every 6 (six) hours if needed for mild pain. Kloxxado 8 mg/0.1 mL nasal spray Generic drug: naloxone 1. Give 1 spray in nostril for no/slow breathing or cannot wake after opioid use 2. Call 911 3. Repeat in other nostril if symptoms continue LORazepam 2 MG tablet Commonly known as: Ativan Take 1 tablet (2 mg) by mouth 2 (two) times a day. Melatonin 10 MG capsule Take 10 mg by mouth at night if needed (for sleep). ondansetron ODT 4 MG disintegrating tablet Commonly known as: Zofran-ODT Take 1 tablet (4 mg) by mouth every 6 (six) hours if needed for nausea. pancrelipase (Ndp-Udle-Xoxk) 6000-13101 units capsule Commonly known as: Creon Take 1 capsule by mouth 3 (three) [...] hours if needed for nausea or vomiting. sucralfate 1 GM/10ML suspension Commonly known as: Carafate Take 10 mL (1 g) by mouth every 6 (six) hours. . oxyCODONE 10 MG immediate release tablet Commonly known as: Roxicodone Take 1 tablet (10 mg) by mouth every 6 (six) hours if needed for moderate pain or severe pain for up to 2 days. Ask about: Should I take this medication? Where to Get Your Medications These medications were sent to [facility] [place] [address] acetaminophen 500 MG tablet oxyCODONE 10 MG immediate release tablet Discharge Diagnosis Medical Problems Active and Resolved Hospital Problems Hospital Anxiety (Chronic) Fibromyalgia (Chronic) Obesity (Chronic) Opiate dependence (CMS/HCC) (Chronic) Nicotine dependence (Chronic) Depression Marijuana use Hyperglycemia Overactive bladder Polyneuropathy, unspecified * (Principal) Left upper quadrant abdominal pain Post Discharge Instructions Outpatient Follow-Up Future Appointments Date Time Provider Department Center 04/28/2023 9:00 AM [facility]ory[facility] Dang [id number] 05/06/2023 11:20 AM Kimi Bonner APRN [facility] 06/18/2023 1:00 PM Svetlana Mabry APRN [facility] [facility] Test Results Pending At Discharge Pertinent Physical Exam At Time of Discharge Physical Exam Constitutional: General: She is not in acute distress. Appearance: She is not toxic-appearing. Comments: Somnolent HENT: Head: Normocephalic and atraumatic. Nose: Nose normal. Mouth/Throat: Mouth: Mucous membranes are moist. Eyes: [...] Tenderness: There is no guarding or rebound. Musculoskeletal: General: Normal range of motion. Cervical back: Normal range of motion. Skin: General: Skin is warm. Neurological: General: No focal deficit present. Mental Status: She is alert and oriented to person, place, and time. Psychiatric: Mood and Affect: Mood normal. Behavior: Behavior normal. Discharge Disposition/Condition Disposition: Home Condition: Stable (s/sx potential problems absent or manageable) I spent >30 minutes of patient care and instruction time in preparation for this discharge. * Consults - Val Stanford RD - 04/14/2023 2:24 PM EST Nutrition Tube Placement Note Rosibel Gayle 37 y.o. female CSN: [id number] Room/Bed 419/419A Enteral Feed Tube Insertion Enteral Feed Tube Maintenance Tube Placement Details: Enteral Feed Tube Insertion (Order #[id number]) on 04/13/23 Placement comments: Dobhoff tube (DHT) not placed at this time. DHT placement deferred by MD team. RD will discontinue the Enteral Feed Tube Insert order at this time. If DHT is needed, please reorder. To Contact: Please secure chat me for all [facility] Enteral Feed Tube (DHT) orders. Val Stanford RD, LD, MS * Discharge Instr - Diet - Laureen Castaneda RN - 04/14/2023 2:22 PM EST As tolerated * Discharge Instr - Activity - Laureen Castaneda RN - 04/14/2023 2:22 PM EST As tolerated * Progress Notes - Cat Almeida RN - 04/14/2023 12:59 PM EST Case Management Discharge Note Rosibel Gayle 37 y.o. female CSN: [id number] Admission: 04/11/2023 3:15 AM Primary Problem: Left upper quadrant abdominal pain Primary Wooling Machine Operator: Primary Caregiver: Self Assistance Available at Discharge: Current Outpatient/Agency/Support Group: other (see comments) (None) Availability of Care Givers (#Hours): No assistance needed Family/Wooling Machine Operator(s) Willingness Assessed to care for patient at home: Yes Family/Wooling Machine Operator(s) Readiness Assessed to care for patient at home: Yes Housing Circumstances-Z Codes: Housing Circumstances (select all that apply): Low Income (101-300% Federal Poverty Guidlines) - Z596 Patient Referred to Financial or Community Resources: None Discharge Facility/Level of Care Needs: Discharge Facility/Level of Care Needs: 1-Home or Self Care Patient's Choice of Community Agency(s): Patient/Family Anticipated Services at Transition: Patient/Family Anticipated Services at Transition: none DME/Equipment Needed after Discharge: Equipment Currently Used at Home: none Equipment Needed After Discharge: none Readmission Within the Last 30 Days: Readmission Within the Last 30 Days: current reason for admission unrelated to previous admission Medicare Documentation:N/A Follow-up: No follow-up provider specified. Discharge Transportation: Transportation Anticipated: family or friend will provide Transportation Home at Discharge: Family/Friend will Provide Has discharge transport been arranged?: No What day is the transport expected?: 04/14/23 Follow Up Transport: Transportation Needed to Follow up Appoinments: Family/Friend will Provide Additional Comments: Patient discharge plans was discussed with treatment team this AM. Patient is medically ready for discharge. No needs for CM from patient. Transportation home will be provided byfamily per patient. Patient preferred pharmacy is [facility] in [place], [place]. CM will continue to be available via secure chat for any discharge needs. Cat Almeida RN * Consults - Val Stanford RD - 04/14/2023 9:29 AM EST Adult Nutrition Evaluation Note Rosibel Gayle 37 y.o. female CSN: [id number] Room/Bed 419/419A Nutrition evaluation type: screen Reason for evaluation: NPO/CLD x 3 days; DHT ordered Hospital course: 37 y/o female admitted 04/11 for left upper quadrant abdominal pain with nausea, vomiting, and diarrhea. Per H&P note (04/11), pt reported symptoms starting on 04/08. Pt has presented to the ED seven times over the past two weeks. Pt has been admitted for acute pancreatitis. Pt reported being unable to tolerate PO intake since 04/08 (6 days). started discussing DHT placement with pt on 04/12 - pt initially declined procedure. Pt noted to be refusing food d/t pain while eating. Pt requested DHT placement on 04/13 per RN report, but pt refused stating that MD is forcing it on her. Past medical/ surgical history: Past Medical History: Diagnosis Date Anxiety Arthritis Depression Fibromyalgia Gastric erosions 04/19/2021 GERD (gastroesophageal reflux disease) Hypertension Intentional overdose ([facility]) 12/20/2021 Nicotine dependence Obesity Pancreatitis Past Surgical History: Procedure Laterality Date CHOLECYSTECTOMY DILATION AND CURETTAGE OF UTERUS ERCP ESOPHAGOGASTRODUODENOSCOPY HAND SURGERY Right ORAL SURGERY Social history: Smoker - 0.5 pack/d for 20 years, Past EtOH abuse - heavy drinking for 7 years until becoming sober a few months ago, +Marijuana use Additional comments: 04/14: Pt endorsed her appetite as poor d/t extreme stomach pain. Pt didn't have any complaints of D/N/V/C at this time. Pt doesn't have any food allergies. Pt denied difficulty chewing/swallowing. Pt reported her UBW ~232# (105kg) and denied any recent wt loss. RD explained the DHT placement to the pt. Pt mentioned wanting to talk to her new doctor before deciding on the tube placement. Pt expressed that if her stomach pain was under control that she would be able to eat. Pt reported that her stomach pain causes her to cry and unable to sleep. Pt mentioned feeling that her doctor last week was pressuring her into the tube placement. RD empathized with pt and respected her decision to talk to her new doctor before making a decision. RD expressed that ultimately the tube placement is up tothe pt. Vitals and Basic Assessment: BP: 130/81 Temp: 36.7 ??C (98 ??F) Oxygen Therapy: None (Room air) Jo Coma Scale Score: 15 Scott Scale Score: 20 Last BM Date: 04/13/23 +miralax PRN GI Symptoms: Nausea +DHT pending placement Allergies: NKFA Medications: Scheduled: acetaminophen, 1,000 mg, Oral, q6h INO cholecalciferol, 2,000 Units, Oral, Daily cyanocobalamin, 1,000 mcg, Oral, Daily DULoxetine, 60 mg, Oral, Daily enoxaparin, 40 mg, Subcutaneous, Daily lidocaine, 1 patch, Apply externally, q12h LORazepam, 2 mg, Oral, BID nicotine, 1 patch, Transdermal, Daily Followed by [START ON 05/23/2023] nicotine, 1 patch, Transdermal, Daily pancrelipase (Hnf-Wljd-Zpcl), 1 capsule, Oral, TID with meals pantoprazole, 40 mg, Oral, Daily pregabalin, 300 mg, Oral, BID sucralfate, 1 g, Oral, q6h INO PRN medications: ibuprofen, melatonin, ondansetron ODT, oxyCODONE, promethazine, [COMPLETED] Insertperipheral IV AND [COMPLETED] Saline lock IV AND sodium chloride AND sodium chloride Meds were reviewed: Yes Labs: Lab Results Component Value Date WBC 5.09 04/12/2023 HGB 10.2 (L) 04/12/2023 HCT 32.4 (L) 04/12/2023 MCV 83 04/12/2023 PLT 246 04/12/2023 Lab Results Component Value Date GLUCOSE 92 04/12/2023 CALCIUM 8.8 (L) 04/12/2023 NA 140 04/12/2023 K 4.1 04/12/2023 CO2 22 04/12/2023 CL 104 04/12/2023 BUN 4 (L) 04/12/2023 CREATININE 0.55 (L) 04/12/2023 PHOS 5.0 (H) 04/12/2023 MG 2.0 04/12/2023 HGBA1C 5.2 11/21/2022 EGFR 122.0 04/12/2023 LIPASE 20 04/12/2023 Lab Results Component Value Date ALBUMIN 4.0 04/12/2023 Note: Albumin is a negative acute phase protein and not a good indicator of nutrition status. Lab Results Component Value Date CRP 9.2 (H) 11/18/2022 Lab Results Component Value Date ALT 13 04/12/2023 AST 15 04/12/2023 ALKPHOS 95 04/12/2023 BILITOT 0.3 04/12/2023 Anthropometrics: Height: 165.1 cm (5' 5 ) Weight: 102 kg (225 lb 1.4 oz) BMI (Calculated): 37.46 Weight Evaluation: Obese-Class 2 (BMI 35-39.9) [place] Body Weight (kg): 57 Percent [place] Body Weight: 179 Adjusted Body Weight (kg): 68 Wt Readings from Last 10 Encounters: 04/14/23 102 kg (225 lb 1.4 oz) 04/09/23 104 kg (229 lb 11.5 oz) 04/08/23 105 kg (230 lb 9.6 oz) 04/02/23 103 kg (227 lb 11.8 oz) 03/30/23 105 kg (232 lb) 03/29/23 106 kg (232 lb 12.9 oz) 03/26/23 105 kg (232 lb 5.8 oz) 03/25/23 (!) 232 kg (511 lb 7.5 oz) 03/14/23 104 kg (230 lb) 03/10/23 103 kg (228 lb) -- Pt's UBW ~230# (105kg) per EMR. -- 2.2% (5#, 2.3kg) wt loss x 6 days (04/08 - 04/14) - moderate (per EMR). Estimated Needs: Kcal/ K-20 Kcal Provided: 4741-6400 Kcal Needs Based On: Current weight (102.1kg) Gm Protein/ Kg : 1.2-1.5 Protein Provided: 68-86 Protein Needs Based On: [place] weight (57kg) Fluid Provided: 1mL/kcal or per MD team Metabolic Cart Study Results: Current Nutrition Intake: Diet Supplements: None Diet Order: Adult Diet Diet Texture: Clear liquid Percent Meals Eaten (%): 13% avg x 4 meals (04/11-04/12) Diet Experience and Nutrition History: Diet Education Provided: Will monitor Pertinent home medications: Vitamin D, B12, Cymbalta, ativan, melatonin, kloxxado, zofran, creon, protonix, lyrica, phenergan, carafate Congregational needs: None Nutrition Focused Physical Exam: Obesity could be skewing exam. Physical exam performed on (date): 04/14/23 Temples (muscles): None Clavicle (muscle): None Shoulder (muscle): None Thigh (muscle): None Calf (muscle): None Orbital (fat): None Triceps (fat): None Assessment of Malnutrition: Malnutrition Identified: No Nutrition Problem: Inadequate energy intake related to current clinical status as evidenced by clear liquid diet for 3days, 13% avg x 4 meals (04/11-04/12). Status of Nutrition Diagnosis: New Nutrition Interventions and Recommendations: Continue Clear Liquid diet as medically appropriate. Diet advancement per [employer]EE[employer] or MD team when pt is medically appropriate. Adding Boost Breeze TID (750kcal, 27g protein) to supplement PO intake. TF recommendations (if needed): Initiate Isosource 1.5 @ 10mL/hr and advance by 10mL/hr Q 6hr to goal rate of 55 ml/hr (1210 ml/day). Provides: 1815 kcal, 82g protein, 213g CHO, 18g fiber, 72g fat, 924 ml water and 121% RDIs vit/min. FW management per MD team. Rec MVI with mineral supplementation daily. Rec thiamine and folic acid supplement d/t RFS risk. Rec continuing home creon supplementation with meals and snacks. Rec obtaining weight 1x/week. Nursing: Please document all PO intakes in I/Os in Flowsheets. Nutrition Monitoring and Goals: - Will monitor PO intake, weight status, lab results, GI tolerance, and skin integrity. - Pt will tolerate >75% avg of meal intakes. - Pt will maintain weight this admission. - Electrolytes WNL. Acuity Level: [address], LD, MS * Progress Notes - Cat Almeida RN - 04/13/2023 12:34 PM EST Case Management Adult Initial Progress Note Rosibel Gayle 37 y.o. female CSN: [id number] Admission: 04/11/2023 3:15 AM Primary Problem: Left upper quadrant abdominal pain Roster Clerk reviewed chart and spoke with patient to complete this Initial Case Management Assessment. PCP: Citlali Marquez APRN Emergency Contact: Extended Emergency Contact Information Primary Emergency Contact: Asiya Flores Address: [address] [place] [address] Mobile Relation: Mother Preferred language: [place] Environmental Health Specialist needed? No Secondary Emergency Contact: Napoleon Mixon Mobile Relation: Significant Other Preferred language: [place] Environmental Health Specialist needed? No Insurance: Primary Visit Coverage Payer Plan Sponsor Code Group Number Group Name ANTHEM MEDICAID ANTHEM MEDICAID [id number] Primary Visit Coverage Subscriber Subscriber ID Subscriber Name Subscriber SSN Subscriber Address [id number] ROSIBEL GAYLE [id number] [place] [address] Patient information: Primary Caregiver: Self Support System: Immediate family (S.O. Napoleon Mixon ([phone])) Daily Living Activities: Functional Status: Independent Living Arrangements: Family, Children Type of Residence: Private residence, Single Level [address] [place] [address] Smoker in the Home?: Yes Current DME: Equipment Currently Used at Home: none Income Information: Income Source: Unemployed Income/Expense Information: Income meets expenses Current Resources Utilized: Food [place] ($630.00 monthly) Housing Circumstances-Z Codes: Housing Circumstances (select all that apply): Low Income (101-300% Federal Poverty Guidlines) - Z596 Patient Referred to: Anticipated Discharge Date: TBD Patient's Discharge Goal: Home Assistance Available at Discharge:Family Discharge Transport: Family Follow Up Transport: Family Home Health / Home Infusion / Outpatient Dialysis Services: None Living Will/Advance Directive/Power of Hands And Dial Inspector /Guardian: Unable to assess: Yes Have you reviewed your Advance Directive and is it valid for this stay?: Yes Advance Directive: Patient does not have advance directive Information Provided on Healthcare Directives: No Pre-existing DNR/DNI Order: No Patient Requests Assistance: No Additional Comments: CM completed initial assessment at bedside. Patient was A/O x3. Patient lives in a single story home with significant other and 3 kids. Patient is independent and has no DME needs. 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 PCP provider is Citlali Marquez APRN at [facility]. Preferred pharmacy is [facility] at [place], [place]. CM will continue to follow for any discharge needs. Cat Almeida RN * Progress Notes - Mo Velazquez E - 04/13/2023 9:32 AM EST Subjective Patient is in bed resting. States that she has not been able to eat anything due to extreme pain (10/10). Denies chest pain, headache, SOB. Reports she is vomiting. She has out of proportion anxious behavior. Review of Systems Constitutional: Positive for activity change and appetite change. HENT: Negative. Eyes: Negative. Respiratory: Positive for shortness of breath. Cardiovascular: Negative. Gastrointestinal: Positive for abdominal distention, nausea and vomiting. Endocrine: Negative. Genitourinary: Negative. Musculoskeletal: Negative. Skin: Negative. Neurological: Negative. Psychiatric/Behavioral: Negative. All other systems reviewed and are negative. Objective Physical Exam Vitals and nursing note reviewed. Constitutional: General: She is not in acute distress. Appearance: Normal appearance. She is not ill-appearing. HENT: Head: Normocephalic and atraumatic. Mouth/Throat: Mouth: Mucous membranes are moist. Eyes: General: No scleral icterus. Cardiovascular: Rate and Rhythm: Normal rate and regular rhythm. Pulses: Normal pulses. Heart sounds: Normal heart sounds. No murmur heard. No friction rub. No gallop. Pulmonary: Effort: Pulmonary effort is normal. No respiratory distress. Breath sounds: Normal breath sounds. Abdominal: General: Bowel sounds are normal. There is no distension. Palpations: Abdomen is soft. Tenderness: There is abdominal tenderness (LUQ, mild). Musculoskeletal: General: No swelling or tenderness. Right lower leg: No edema. Left lower leg: No edema. Skin: General: Skin is warm and dry. Findings: Rash present. Rash is crusting. Comments: Fungal infection on right rodríguez. Neurological: Mental Status: She is alert. Lipase, Plasma Date Value Ref Range Status 04/12/2023 20 19 - 63 U/L Final 04/11/2023 36 19 - 63 U/L Final 04/09/2023 62 19 - 63 U/L Final 04/08/2023 29 19 - 63 U/L Final 04/04/2023 22 19 - 63 U/L Final 04/02/2023 28 19 - 63 U/L Final 03/30/2023 34 19 - 63 U/L Final 03/29/2023 26 19 - 63 U/L Final 03/18/2023 35 19 - 63 U/L Final 03/14/2023 47 19 - 63 U/L Final Latest Reference Range & Units 04/12/23 03:19 Comprehensive Urine Drug Screen Result Negative Positive ! Acetaminophen Negative Positive ! Fluconazole Negative Positive ! Lidocaine Negative Positive ! Oxycodone Negative Positive ! Promethazine Negative Positive ! Amphetamine Negative Positive ! !: Data is abnormal Last Recorded Vitals Blood pressure (!) 133/97, pulse 78, temperature 36.4 ??C (97.6 ??F), temperature source Oral, resp. rate 16, height 1.651 m (5' 5 ), weight 102 kg (225 lb 1.4 oz), SpO2 100 %, not currently . Assessment/Plan Principal Problem: Left upper quadrant abdominal pain Active Problems: Anxiety Fibromyalgia Hyperglycemia Rosibel Gayle is a 37 y.o. year-old female who has a past medical history of Anxiety, Arthritis,Depression, Fibromyalgia, Gastric erosions, GERD (gastroesophageal reflux disease), Hypertension, Intentional overdose, Nicotine dependence, Obesity, and Pancreatitis who presents to [facility] ED due to left upper quadrant abdominal pain with nausea, vomiting, and diarrhea. Possible acute on chronic alcoholic pancreatitis with intractable nausea, vomiting, and diarrhea Patient reports a 4 day history of LUQ abdominal pain with intractable nausea, vomiting, and diarrhea. Overnight patient reports that she had nausea and vomiting, and is unable to eat anything by mouth because of intense 10/10 pain. Lipase 36 Of note, the patient has presented to the ED 7 times in the past 2 weeks for similar presentation. Plan: GI Consult for LUQ pain and poor PO intake/NG Tube IVF for rehydration CLD as tolerated Zofran 4 mg IV q6h PRN Phenergran 12.5 mg PO q4h PRN Restart home vitamin D, B12, pancrelipase, and sucralfate when tolerating PO Acute on chronic pain secondary to possible chronic alcoholic pancreatitis complicated by fibromyalgia The patient most likely has poor pain tolerance related to coexisting depression and anxiety. Will continue to monitor the patient on continuous pulse oximetry due to narcotics to ensure no respiratory depression. Plan Tylenol 1000 mg PO q6h Lyrica 300 mg PO BID Dilaudid 0.5 mg IV q6h PRN Ibuprogen 800 mg PO q8h PRN Oxycodone 10 mg PO q4h PRN Anxiety and Depression On exam, the patient is anxious out of proportion. She is tearful and extremely jittery. She exhibits some malingering behavior on exam. She reacts out of proportion to palpation of the LUQ. On second exam, there is limited reaction when the patient is distracted in conversation with other providers. Plan: Cymbalta 60 mg PO daily Ativan 2 mg PO BID The patient would benefit from outpatient psychiatric evaluation Chronic Medical Conditions GERD - continue home PPI and H2 janki Insomnia - continue melatonin at night for sleep Nicotine Dependence - patient uses cigarettes. NRT and smoking cessation counseling ordered. Patient educated that smoking increasing risk for pancreatitis. Marijuana Use - encouraged cessation Obesity - 38.89; complicates all aspects of care Fluids: LR @ 100 ml/hr Electrolytes: Continue to monitor and replace as appropriate Diet: Adult diet Diet texture: Clear liquid DVT prophylaxis: SCDs + Lovenox prophylaxis Code status: Full Code Mo Velazquez, MPH, PA-S3 Cosigned by Shante Romano MD at 04/14/2023 1:06 AM EST Associated attestation - Shante Romano MD - 04/14/2023 1:06 AM EST I saw and evaluated the patient with the medical/MANAGER RESORT/PA student. I discussed the case with the medical/MANAGER RESORT/PA student and agree with the findings and plan as documented. I personally performed the Examand Medical Decision Making In the morning PT was seen in the presence of team 5. She was resting in bed. Complained of 10/10 pain in the LUQ radiating to the back. When distracted she was responding appropriately with no signs of distress. Exam od the abdomen with minimal to mild tenderness to palpation when distracted. Refusing to take food sec to pain when eats. She is very concerned about not being able to toleratediet. Yesterday it was mentioned that she may need DHT feeding to avoid starvation, but decision was not done. Today, when seen with the presence of her nurse she requested DHT placement, however perreport she is refusing this and complains that the doctor is reinforcing this placement . Generally anxious, requested to increase her opiates dose. GI team was contacted for advise and consult. Per verbal discussion it was recommended to wean thisPT off from the Dilaudid and next from oral Opiates as she was off narcotic before this admission.. PT disagreed with this decision, was very upset, yelling and was confrontational. * Consults - Thor Reich - 04/13/2023 9:22 AM EST Pastoral Care Note Security Installer visited with the patient to introduce pastoral care. Patient expressed gratitude for the storyboard artist presence and asked for a prayer. Miss. Sharp said feeling a strong abdominal pain. Patient was talking on her health condition and family concerns. Security Installer offered an empathetic listening, emotional support, spiritual comfort and prayed for the patient. Referral From: Security Installer Initiated Pastoral Care Provided For: Patient Patient Profile: Consult Reasons: Initial visit, New Admission Spiritual Assessment: Support Systems/ Spiritual Resources: Lara, Family, Prayer Spiritual Needs: Emotional support, Prayer, Spiritual support Spiritual Issues: Anxious(ness), Chronic pain/ illness Interventions: Interventions Provided: Affirm acceptance and gratitude, Emotional support, Identify presybeterian/ spiritual coping, Life review, Prayer, Spiritual support, Supportive Listening, Introduced Patient/Family to Security Installer Services, Consulted with care team Pastoral Care Outcomes: Patient Outcomes: Demonstrates lower level of Anxious(ness), Is knowledgeable about Sr Vice President Services, Gratitude, Communicates increased satisfaction with hospital experience, Identifies spiritual or presybeterian practices as helpful, Expresses being seen and heard, Appreciative of Security Installer Support * Progress Notes - Shante Romano MD - 04/12/2023 7:47 PM EST Subjective Patient was seen and examined at bedside. She is family medicine PT, but was admitted by IM as her clinic record was missed during this admission. Family Medicine team does not feel comfortable to take over this Pt care when already admitted by the other team. PT is resting in bed. States that she can not eat, because gets pain with po intake. Pain is in the epigastric area, and in the LUQ. PT graded her pain 10/10, but when districted no signs of suffering visible. Engaged in discussion.Appears anxious, easy crying, appears stressed out and anxious. States that she has nausea. No vomiting. Advised to start CLD. PT states that she was not eating for 4 days prior to this admission plus 2 days here. Discussed DHT placement. PT is rejecting this procedure. Cont current pain regimen. Will d/c Dilaudid tomorrow. Review of Systems Denies ESPINOZA Denies CP Denies SOB Complains of 10/10 abdominal pain in the LUQ and the epigastrium Has decreased appetite No vomiting today No BM today Denies problems with urination Able to tolerate liquids/ drinks clears but not eating Out of proportion anxious, crying Medications acetaminophen, 1,000 mg, Oral, q6h INO cyanocobalamin, 1,000 mcg, Oral, Daily DULoxetine, 60 mg, Oral, Daily enoxaparin, 40 mg, Subcutaneous, Daily lidocaine, 1 patch, Apply externally, q12h LORazepam, 2 mg, Oral, BID nicotine, 1 patch, Transdermal, Daily Followed by [START ON 05/23/2023] nicotine, 1 patch, Transdermal, Daily pancrelipase ([id number]), 1 capsule, Oral, TID with meals pantoprazole, 40 mg, Oral, Daily pregabalin, 300 mg, Oral, BID PRN medications: dicyclomine, famotidine, HYDROmorphone, ibuprofen, melatonin, ondansetron, oxyCODONE, promethazine, [COMPLETED] Insert peripheral IV AND [COMPLETED] Saline lock IV AND sodiumchloride AND sodium chloride Objective Last Recorded Vitals Blood pressure (!) 155/106, pulse 91, temperature 36.5 ??C (97.7 ??F), resp. rate 16, height 1.651 m (5' 5 ), weight 106 kg (233 lb 11 oz), SpO2 96 %, not currently . Intake/Output Summary (Last 24 hours) at 04/12/20231946 Last data filed at 04/12/2023 1300 Gross per 24 hour Intake 418 ml Output -- Net 418 ml Physical Exam General: Obese with BMI 38.9 female who presents in distress crying in reported pain Physical Exam Vitals reviewed. Constitutional: General: She is not in acute distress. Appearance: Normal appearance. She is obese. She is not ill-appearing or toxic-appearing. HENT: Mouth/Throat: Mouth: Mucous membranes are moist. Pharynx: Oropharynx is clear. No oropharyngeal exudate or posterior oropharyngeal erythema. Eyes: Extraocular Movements: Extraocular movements intact. Conjunctiva/sclera: Conjunctivae normal. Pupils: Pupils are equal, round, and reactive to light. Neck: Supple Cardiovascular: Rate and Rhythm: Regular rhythm. Occasional Tachycardia present. Heart sounds: No murmur heard. No friction rub. No gallop. Pulmonary: Effort: Pulmonary effort is normal. No respiratory distress. Breath sounds: Normal breath sounds. No stridor. No wheezing, rhonchi or rales. Chest: Chest wall: No tenderness. Abdominal: General: Bowel sounds are normal. There is no distension. Palpations: Abdomen is soft. Tenderness: There is abdominal tenderness (LUQ). There is no guarding. Musculoskeletal: General: No swelling, tenderness or deformity. Normal range of motion. Cervical back: Normal range of motion and neck supple. No rigidity or tenderness. Lymphadenopathy: Cervical: No cervical adenopathy. Skin: General: Skin is warm. No jaudice Findings: No lesion or rash. Neurological: General: No focal deficit present. Mental Status: She is alert and oriented to person, place, and time. Cranial Nerves: No cranial nerve deficit. Sensory: No sensory deficit. Motor: No weakness. Coordination: Coordination normal. Psychiatric: Attention and Perception: Attention normal. Mood and Affect: Mood is anxious. Affect is tearful. Speech: Speech is rapid and pressured. Behavior: Behavior is hyperactive. Thought Content: Thought content normal. Cognition and Memory: Cognition and memory normal. Judgment: Judgment normal. LABS Results from last 7 days Lab Units 04/12/23 0256 04/11/23 0337 04/09/23 1015 04/08/23 1211 WBC 10*3/uL 5.09 8.53 5.13 5.65 HEMOGLOBIN g/dL 10.2* 10.3* 10.9* 12.2 HEMATOCRIT % 32.4* 33.0* 33.5* 37.9 PLATELETS 10*3/uL 246 246 241 264 NEUTROS PCT % -- -- 63.0 63.0 LYMPHS PCT % -- -- 24.0 27.0 MONOS PCT % -- -- 6.0 5.0 EOS PCT % -- -- 5.0 3.0 Results from last 7 days Lab Units 04/12/23 0256 04/11/23 0337 04/09/23 1015 SODIUM mmol/L 140 136 139 POTASSIUM mmol/L 4.1 3.9 3.7 CHLORIDE mmol/L 104 103 103 CO2 mmol/L 22 21* 22 BUN mg/dL 4* 7 8 CREATININE mg/dL 0.55* 0.48* 0.51* CALCIUM mg/dL 8.8* 9.3 9.2 BILIRUBIN TOTAL mg/dL 0.3 0.2 0.4 ALKALINE PHOSPHATASE U/L 95 99 102 ALT U/L 13 18 28 AST U/L 15 14 23 GLUCOSE mg/dL 92 112* 104* IMAGING Assessment/Plan Principal Problem: Left upper quadrant abdominal pain Rosibel Gayle is a 37 y.o. year-old female who has a past medical history of Anxiety, Arthritis,Depression, Fibromyalgia, Gastric erosions, GERD (gastroesophageal reflux disease), Hypertension, Intentional overdose, Nicotine dependence, Obesity, and Pancreatitis who presents to [facility] ED due to left upper quadrant abdominal pain with nausea, vomiting, and diarrhea. Possible acute on chronic alcoholic pancreatitis with intractable nausea, vomiting, and diarrhea - per hx 4 days of intense left upper quadrant abdominal pain with intractable nausea, vomiting, and diarrhea - Lipase 36 (does not elevated always in chronic pancreatitis patients with flare) - Zofran and promethazine PRN for nausea - IVF for rehydration - CLD as tollerated - Strict Is & Os with daily weights - Restart home vitamin D, B12, pancrelipase and sucralfate when tolerating PO -yesterday PT mentioned one episode of not witnessed vomiting, none today -no diarrhea witnessed -per PT nausea present -cont monitoring and Tx as above plus pain regimen as below 2. Acute on chronic pain secondary to #1 complicated by fibromyalgia - Continue home lyrica with PRN tylenol and ibuprofen - Order 10mg oxy q4h with .5mg dilaudid q6 PRN for breakthrough pain - Miralax PRN for constipation - Monitor on continuous pulse oxymetry due to increased narcotics -most likely poor pain tolerance is related to coexisting depression, anxiety. -PT may benefit from OPT psychiatric evaluation to control above -plan is to discontinue IV pain regimen -repeating labs -will consider GI consult is symptoms not improving 3. Mild Hyperglycemia - Likely reactive -HG A1C 5.2 - Glucose: 112 - Continue to monitor with AM labs 4. Normocytic Anemia - Likely due to choric inflammation - Hgb: 10.3 - Continue to monitor with AM labs - Transfuse if Hgb < 7 Chronic Medical Conditions: #) GERD- Continue home PPI and H2 janki #) Anxiety and Depression - Continue home duloxetine and ativan -PT will benefit from OP Psych evaluation #) Insomnia- Continue melatonin HS for sleep #) Nicotine Dependence - The patient uses cigarettes - I have ordered NRT and smoking cessation counselling. I informed the patient that leaving the floor may result in delayed treatment and a longer hospital stay. -PT aware that smoking is increasing risks for pancreatitis #) Marijuana use- Encourage cessation #) Obesity - BMI: 38.89 - Complicates all aspects of care Fluids: LR @ 100 ml/hr Electrolytes: Continue to monitor and replace as appropriate Diet: Adult diet Diet texture: Clear liquid DVT prophylaxis: SCDs + Lovenox prophylaxis Code status: Full Code * Care Plan - Louann, Ana Lilia L, [facility] - 04/12/2023 11:01 AM EST Problem: Adult Inpatient Plan of Care Goal: Plan of Care Review Outcome: Ongoing, Progressing Goal: Patient-Specific Goal (Individualized) Outcome: Ongoing, Progressing Goal: Absence of Hospital-Acquired Illness or Injury Outcome: Ongoing, Progressing Goal: Optimal Comfort and Wellbeing Outcome: Ongoing, Progressing Goal: Readiness for Transition of Care Outcome: Ongoing, Progressing * Progress Notes - Shante Romano MD - 04/11/2023 8:05 PM EST Subjective Patient was seen and examined at bedside. PT was admitted overnight. She is family medicine PT, but was admitted by IM as her clinic record was missed during this admission. Family Medicine team does not feel comfortable to take over this Pt care when already admitted by the other team. PT is resting in bed and crying that she needs more pain medications for severe pain. Per nurses and her current provider it was noticed that whenever PT is distracted, she is not showing signs of pain. Expecting psychological component of this chronic pain intolerance. All studies and lab work done in in ED returned NL. PT currently is oral opiates and IV dilaudid. Discussed plan of care. Review of Systems Denies ESPINOZA Denies CP Denies SOB Complains of 10/10 abdominal pain in the LUQ Has decreased appetite Had one episode of not witnessed vomiting No BM in AM Denies problems with urination Able to tolerate liquids Out of proportion anxious, crying Medications acetaminophen, 1,000 mg, Oral, q6h INO [START ON 04/12/2023] cyanocobalamin, 1,000 mcg, Oral, Daily DULoxetine, 60 mg, Oral, Daily enoxaparin, 40 mg, Subcutaneous, Daily lidocaine, 1 patch, Apply externally, q12h LORazepam, 2 mg, Oral, BID nicotine, 1 patch, Transdermal, Daily Followed by [START ON 05/23/2023] nicotine, 1 patch, Transdermal, Daily pancrelipase ([id number]), 1 capsule, Oral, TID with meals pantoprazole, 40 mg, Oral, Daily pregabalin, 300 mg, Oral, BID PRN medications: dicyclomine, famotidine, HYDROmorphone, ibuprofen, melatonin, ondansetron, oxyCODONE, promethazine, [COMPLETED] Insert peripheral IV AND [COMPLETED] Saline lock IV AND sodiumchloride AND sodium chloride Objective Last Recorded Vitals Blood pressure (!) 136/92, pulse 80, temperature 36.3 ??C (97.4 ??F), resp. rate 16, height 1.651 m(5' 5 ), weight 106 kg (233 lb 11 oz), SpO2 98 %, not currently . Intake/Output Summary (Last 24 hours) at 04/11/20232004 Last data filed at 04/11/2023 1700 Gross per 24 hour Intake 2066.66 ml Output -- Net 2066.66 ml Physical Exam General: Obese with BMI 38.9 female who presents in distress crying in reported pain Physical Exam Vitals reviewed. Constitutional: General: She is not in acute distress. Appearance: Normal appearance. She is obese. She is not ill-appearing or toxic-appearing. HENT: Mouth/Throat: Mouth: Mucous membranes are moist. Pharynx: Oropharynx is clear. No oropharyngeal exudate or posterior oropharyngeal erythema. Eyes: Extraocular Movements: Extraocular movements intact. Conjunctiva/sclera: Conjunctivae normal. Pupils: Pupils are equal, round, and reactive to light. Neck: Supple Cardiovascular: Rate and Rhythm: Regular rhythm. Tachycardia present. Heart sounds: No murmur heard. No friction rub. No gallop. Pulmonary: Effort: Pulmonary effort is normal. No respiratory distress. Breath sounds: Normal breath sounds. No stridor. No wheezing, rhonchi or rales. Chest: Chest wall: No tenderness. Abdominal: General: Bowel sounds are normal. There is no distension. Palpations: Abdomen is soft. Tenderness: There is abdominal tenderness (LUQ). There is no guarding. Musculoskeletal: General: No swelling, tenderness or deformity. Normal range of motion. Cervical back: Normal range of motion and neck supple. No rigidity or tenderness. Lymphadenopathy: Cervical: No cervical adenopathy. Skin: General: Skin is warm. No jaudice Findings: No lesion or rash. Neurological: General: No focal deficit present. Mental Status: She is alert and oriented to person, place, and time. Cranial Nerves: No cranial nerve deficit. Sensory: No sensory deficit. Motor: No weakness. Coordination: Coordination normal. Psychiatric: Attention and Perception: Attention normal. Mood and Affect: Mood is anxious. Affect is tearful. Speech: Speech is rapid and pressured. Behavior: Behavior is hyperactive. Thought Content: Thought content normal. Cognition and Memory: Cognition and memory normal. Judgment: Judgment normal. LABS Results from last 7 days Lab Units 04/11/23 0337 04/09/23 1015 04/08/23 1211 WBC 10*3/uL 8.53 5.13 5.65 HEMOGLOBIN g/dL 10.3* 10.9* 12.2 HEMATOCRIT % 33.0* 33.5* 37.9 PLATELETS 10*3/uL 246 241 264 NEUTROS PCT % -- 63.0 63.0 LYMPHS PCT % -- 24.0 27.0 MONOS PCT % -- 6.0 5.0 EOS PCT % -- 5.0 3.0 Results from last 7 days Lab Units 04/11/23 0337 04/09/23 1015 04/08/23 1211 SODIUM mmol/L 136 139 139 POTASSIUM mmol/L 3.9 3.7 4.8 CHLORIDE mmol/L 103 103 101 CO2 mmol/L 21* 22 22 BUN mg/dL 7 8 7 CREATININE mg/dL 0.48* 0.51* 0.49* CALCIUM mg/dL 9.3 9.2 9.8 BILIRUBIN TOTAL mg/dL 0.2 0.4 0.4 ALKALINE PHOSPHATASE U/L 99 102 120* ALT U/L 18 28 30 AST U/L 14 23 37* GLUCOSE mg/dL 112* 104* 96 IMAGING Assessment/Plan Principal Problem: Left upper quadrant abdominal pain Rosibel Gayle is a 37 y.o. year-old female who has a past medical history of Anxiety, Arthritis,Depression, Fibromyalgia, Gastric erosions, GERD (gastroesophageal reflux disease), Hypertension, Intentional overdose, Nicotine dependence, Obesity, and Pancreatitis who presents to [facility] ED due to left upper quadrant abdominal pain with nausea, vomiting, and diarrhea. Possible acute on chronic alcoholic pancreatitis with intractable nausea, vomiting, and diarrhea - per hx 4 days of intense left upper quadrant abdominal pain with intractable nausea, vomiting, and diarrhea - Lipase 36 (does not elevated always in chronic pancreatitis patients with flare) - Zofran and promethazine PRN for nausea - IVF for rehydration - CLD as tollerated - Strict Is & Os with daily weights - Restart home vitamin D, B12, pancrelipase and sucralfate when tolerating PO -Today PT mentioned one episode of not witnessed vomiting -no diarrhea witnessed -per PT nausea present -cont monitoring and Tx as above plus pain regimen as below 2. Acute on chronic pain secondary to #1 complicated by fibromyalgia - Continue home lyrica with PRN tylenol and ibuprofen - Order 10mg oxy q4h with .5mg dilaudid q6 PRN for breakthrough pain - Miralax PRN for constipation - Monitor on continuous pulse oxymetry due to increased narcotics -most likely poor pain tolerance is related to coexisting depression, anxiety. -pT may benefit from OPT psychiatric evaluation to control above 3. Mild Hyperglycemia - Likely reactive - Glucose: 112 - Continue to monitor with AM labs 4. Normocytic Anemia - Likely due to choric inflammation - Hgb: 10.3 - Continue to monitor with AM labs - Transfuse if Hgb < 7 Chronic Medical Conditions: #) GERD- Continue home PPI and H2 janki #) Anxiety and Depression - Continue home duloxetine and ativan #) Insomnia- Continue melatonin HS for sleep #) Nicotine Dependence - The patient uses cigarettes - I have ordered NRT and smoking cessation counselling. I informed the patient that leaving the floor may result in delayed treatment and a longer hospital stay. #) Marijuana use- Encourage cessation #) Obesity - BMI: 38.89 - Complicates all aspects of care Fluids: LR @ 100 ml/hr Electrolytes: Continue to monitor and replace as appropriate Diet: Adult diet Diet texture: Clear liquid DVT prophylaxis: SCDs + Lovenox prophylaxis Code status: Full Code * Care Plan - Ana Lilia Lew LPN - 04/11/2023 11:13 AM EST Problem: Adult Inpatient Plan of Care Goal: Plan of Care Review Outcome: Ongoing, Progressing Goal: Patient-Specific Goal (Individualized) Outcome: Ongoing, Progressing Goal: Absence of Hospital-Acquired Illness or Injury Outcome: Ongoing, Progressing Goal: Optimal Comfort and Wellbeing Outcome: Ongoing, Progressing Goal: Readiness for Transition of Care Outcome: Ongoing, Progressing * H&P - Leny Tee APRN - 04/11/2023 6:32 AM ESTAssociated Order(s): Consult to [facility] Images from the original note were not included. Consult to [facility] Consult performed by: Leny Tee APRN Consult ordered by: Kayla Ramos MD Reason for consult: admission for medical management Hospital Medicine History and Physical Chief Complaint: Left upper quadrant abdominal pain with nausea, vomiting, and diarrhea History of Present Illness: Rosibel Gayle is a 37 y.o. year-old female who has a past medical history of Anxiety, Arthritis,Depression, Fibromyalgia, Gastric erosions, GERD (gastroesophageal reflux disease), Hypertension, Intentional overdose, Nicotine dependence, Obesity, and Pancreatitis who presents to [facility] ED due to left upper quadrant abdominal pain with nausea, vomiting, and diarrhea. Patient reports that she began having left upper quadrant abdominal pain with nausea and vomiting 04/08. This ED visit is the 7th x the patient has been seen in our ED over the last 2 weeks with similar symptoms. It is noted that the patient has been admitted several times for acute on chronic pancreatitis, but per all the CT imaging there is no evidence of pancreatitis. Lipase is occasionally elevated in the low 100s, but there has not been a significant elevation since 08/2022 when lipase was 696. Lipase on arrival tonight was 36. Patient report left upper quadrant sharp, stabbing, constant pain worse with mov ement. Patient is tachycardic in the 110s and very tearful, guarding her abdomen on exam. She denies being able to keep anything down since 04/08. Patient notes that she has an appointment with pain management on the to be evaluated for a pain pump and she just needs to get through to that appointment. Patient denies fever, chills, hematemesis, hematochezia, SOA, or cough. Patient to be admitted to Hospital Medicine for further work up and care. Review of Systems: Review of Systems Constitutional: Positive for fatigue. Negative for activity change, appetite change, chills, diaphoresis, fever and unexpected weight change. HENT: Negative for congestion, ear pain, hearing loss, rhinorrhea, sore throat, trouble swallowing and voice change. Eyes: Negative for discharge and visual disturbance. Respiratory: Negative for apnea, cough, chest tightness, shortness of breath and wheezing. Cardiovascular: Negative for chest pain and palpitations. Gastrointestinal: Positive for abdominal pain (LUQ), diarrhea, nausea and vomiting. Negative for abdominal distention, blood in stool and constipation. Endocrine: Negative for cold intolerance, heat intolerance, polydipsia, polyphagia and polyuria. Genitourinary: Negative for difficulty urinating, dysuria, frequency, hematuria and urgency. Musculoskeletal: Negative for arthralgias, joint swelling and myalgias. Skin: Negative for color change, rash and wound. Allergic/Immunologic: Negative for environmental allergies, food allergies and immunocompromised state. Neurological: Negative for dizziness, tremors, seizures, syncope, weakness, light-headedness, numbness and headaches. Hematological: Negative for adenopathy. Does not bruise/bleed easily. Psychiatric/Behavioral: Negative for agitation, confusion, hallucinations and suicidal ideas. The patient is nervous/anxious. Past Medical History: Past Medical History: Diagnosis Date Anxiety Arthritis Depression Fibromyalgia Gastric erosions 04/19/2021 GERD (gastroesophageal reflux disease) Hypertension Intentional overdose ([facility]) 12/20/2021 Nicotine dependence Obesity Pancreatitis Surgical History: Past Surgical History: Procedure Laterality Date CHOLECYSTECTOMY DILATION AND CURETTAGE OF UTERUS ERCP ESOPHAGOGASTRODUODENOSCOPY HAND SURGERY Right ORAL SURGERY Family History: Family History Problem Relation Name Age of Onset Hypertension Mother Coronary artery disease Father Lung cancer Maternal Grandmother Coronary artery disease Maternal Grandfather Coronary artery disease Paternal Grandfather Colon cancer Other Social History: Living: [place] [id number] with partner / significant other and her 3 kids Marital Status: not 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 Drug: Marijuana. Tobacco Use Smoking Status Every Day Packs/day: 0.50 Years: 20.00 Additional pack years: 0.00 Total pack years: 10.00 Types: Cigarettes Smokeless Tobacco Never Travel History: Relevant Travel History: Travel Screening Question Response Have you been in contact with someone who was sick? No / Unsure Do you have any of the following new or worsening symptoms? Abdominal pain Have you traveled internationally or domestically in the last month? No Travel History Travel since 03/11/23 No documented travel since 03/11/23 Allergies: Compazine [prochlorperazine], Droperidol, and Tramadol Medications: Current Facility-Administered Medications: acetaminophen (Tylenol) tablet 1,000 mg, 1,000 mg, Oral, q6h INO, Leny Tee APRN [START ON 04/12/2023] cyanocobalamin (Vitamin B-12) tablet 1,000 mcg, 1,000 mcg, Oral, Daily, Leny Tee APRN dicyclomine (Bentyl) tablet 20 mg, 20 mg, Oral, 4x daily PRN, Leny Tee APRN DULoxetine (Cymbalta) DR capsule 60 mg, 60 mg, Oral, Daily, Leny Tee APRN enoxaparin (Lovenox) syringe 40 mg, 40 mg, Subcutaneous, Daily, Leny Tee APRN famotidine (Pepcid) tablet 20 mg, 20 mg, Oral, BID PRN, Leny Tee APRN HYDROmorphone (Dilaudid) injection 0.5 mg, 0.5 mg, Intravenous, q6h PRN, Leny Tee APRN ibuprofen tablet 800 mg, 800 mg, Oral, q6h PRN, Leny Tee APRN lactated Ringer's infusion, 100 mL/hr, Intravenous, Continuous, Leny Tee APRN lidocaine (Lidoderm) 5 % patch 1 patch, 1 patch, Apply externally, q12h, Leny Tee APRN LORazepam (Ativan) tablet 2 mg, 2 mg, Oral, BID, Leny Tee APRN magnesium sulfate IVPB 2 g, 2 g, Intravenous, Once, Leny Tee APRN melatonin tablet 9 mg, 9 mg, Oral, Nightly PRN, Leny Tee APRN nicotine (Nicoderm CQ) 14 MG/24HR patch 1 patch, 1 patch, Transdermal, Daily FOLLOWED BY [STARTON 05/23/2023] nicotine (Nicoderm CQ) 7 MG/24HR patch 1 patch, 1 patch, Transdermal, Daily, Leny Tee APRN ondansetron (Zofran) injection 4 mg, 4 mg, Intravenous, q6h PRN, Leny Tee APRN oxyCODONE (Roxicodone) immediate release tablet 10 mg, 10 mg, Oral, q4h PRN, Leny Tee APRN pancrelipase (Creon) 6000 unit capsule, 1 capsule, Oral, TID with meals, Leny Tee APRN pantoprazole (Protonix) EC tablet 40 mg, 40 mg, Oral, Daily, Leny Tee APRN pregabalin (Lyrica) capsule 300 mg, 300 mg, Oral, BID, Leny Tee APRN promethazine (Phenergan) tablet 12.5 mg, 12.5 mg, Oral, q4h PRN, Leny Tee APRN [COMPLETED] Insert peripheral IV, , , Once AND [COMPLETED] Saline lock IV, , , Once AND sodium chloride 0.9 % flush 10 mL, 10 mL, Intravenous, q8h PRN AND sodium chloride 0.9 % flush 10 mL, 10 mL, Intravenous, PRN, Leny Tee APRN Current Outpatient Medications: acetaminophen (Tylenol) 500 MG tablet, Take 2 tablets (1,000 mg) by mouth every 6 (six) hours if needed for pain., Disp: , Rfl: Aluminum & Magnesium Hydroxide (gi cocktail), Take 30 mL by mouth 4 (four) times a day if needed (Abdominal pain)., Disp: 300 mL, Rfl: 2 cholecalciferol (Vitamin D-3) 50 MCG (2000 UT) capsule, Take 1 capsule (2,000 Units) by mouth 1 (one) time each day., Disp: , Rfl: cyanocobalamin 1000 MCG tablet, Take 1 tablet (1,000 mcg) by mouth 1 (one) time each day., Disp: , Rfl: dicyclomine (Bentyl) 10 MG capsule, Take 1 capsule (10 mg) by mouth every 6 (six) hours if needed (abdominal spasms)., Disp: 30 capsule, Rfl: 0 DULoxetine (Cymbalta) [address] capsule, Take 1 capsule (60 mg) by mouth 1 (one) time each day. Do not crush or chew., Disp: 30 capsule, Rfl: 0 famotidine (Pepcid) 20 MG tablet, Take 1 tablet (20 mg) by mouth 2 (two) times a day if needed for heartburn., Disp: , Rfl: ibuprofen 800 MG tablet, Take 1 tablet (800 mg) by mouth every 6 (six) hours if needed for mild pain., Disp: , Rfl: Lidocaine (HM Lidocaine Patch) 4 % patch, Apply 1 patch topically every 12 (twelve) hours., Disp: ,Rfl: LORazepam (Ativan) 2 MG tablet, Take 1 tablet (2 mg) by mouth 2 (two) times a day., Disp: , Rfl: MELATONIN PO, Take 10 mg by mouth at night if needed (sleep)., Disp: , Rfl: metoclopramide (Reglan) 5 MG tablet, Take 1 tablet (5 mg) by mouth 3 (three) times a day before meals., Disp: 90 tablet, Rfl: 0 naloxone (Kloxxado) 8 mg/0.1 mL nasal spray, 1. Give 1 spray in nostril for no/slow breathing or cannot wake after opioid use 2. Call 911 3. Repeat in other nostril if symptoms continue, Disp: 1 each, Rfl: 0 nicotine (Nicoderm CQ) 21 MG/24HR patch, Place 1 patch on the skin 1 (one) time each day at the same time., Disp: , Rfl: ondansetron ODT (Zofran-ODT) 4 MG disintegrating tablet, Take 1 tablet (4 mg) by mouth every 6 (six) hours if needed for nausea., Disp: 12 tablet, Rfl: 0 oxyCODONE (Roxicodone) 10 MG immediate release tablet, Take 2 tablets (20 mg) by mouth every 8 (eight) hours if needed for severe pain for up to 5 doses., Disp: 10 tablet, Rfl: 0 pancrelipase, Jnn-[id number]-Gtcr, (Creon) 6000-07863 units capsule, Take 1 capsule by mouth 3 (three) times a day with meals., Disp: , Rfl: pantoprazole (Protonix) 40 MG EC tablet, Take 1 tablet (40 mg) by mouth 1 (one) time each day. Do not crush, chew, or split., Disp: , Rfl: pregabalin (Lyrica) 300 MG capsule, Take 1 capsule (300 mg) by mouth 2 (two) times a day., Disp: , Rfl: simethicone (Mylicon) 80 MG chewable tablet, Chew 1 tablet (80 mg) 4 (four) times a day if needed for flatulence., Disp: 30 tablet, Rfl: 0 Vital Signs: Visit Vitals BP 130/81 Pulse 89 Temp 36.7 ??C (98 ??F) (Oral) Resp 22 Ht 1.651 m (5' 5 ) Wt 106 kg (233 lb 11 oz) SpO2 93% BMI 38.89 kg/m?? OB Status Having periods Smoking Status Every Day BSA 2.2 m?? Physical Exam: General: well developed, well-nourished female who presents in distress crying in reported pain Physical Exam Vitals reviewed. Constitutional: General: She is not in acute distress. Appearance: Normal appearance. She is obese. She is not ill-appearing or toxic-appearing. HENT: Head: Normocephalic and atraumatic. Nose: Nose normal. No congestion or rhinorrhea. Mouth/Throat: Mouth: Mucous membranes are moist. Pharynx: Oropharynx is clear. No oropharyngeal exudate or posterior oropharyngeal erythema. Eyes: Extraocular Movements: Extraocular movements intact. Conjunctiva/sclera: Conjunctivae normal. Pupils: Pupils are equal, round, and reactive to light. Neck: Vascular: No carotid bruit. Cardiovascular: Rate and Rhythm: Regular rhythm. Tachycardia present. Heart sounds: No murmur heard. No friction rub. No gallop. Pulmonary: Effort: Pulmonary effort is normal. No respiratory distress. Breath sounds: Normal breath sounds. No stridor. No wheezing, rhonchi or rales. Chest: Chest wall: No tenderness. Abdominal: General: Bowel sounds are normal. There is no distension. Palpations: Abdomen is soft. Tenderness: There is abdominal tenderness (LUQ). There is guarding. Musculoskeletal: General: No swelling, tenderness or deformity. Normal range of motion. Cervical back: Normal range of motion and neck supple. No rigidity or tenderness. Lymphadenopathy: Cervical: No cervical adenopathy. Skin: General: Skin is warm. Capillary Refill: Capillary refill takes less than 2 seconds. Findings: No lesion or rash. Neurological: General: No focal deficit present. Mental Status: She is alert and oriented to person, place, and time. Cranial Nerves: No cranial nerve deficit. Sensory: No sensory deficit. Motor: No weakness. Coordination: Coordination normal. Psychiatric: Attention and Perception: Attention normal. Mood and Affect: Mood is anxious. Affect is tearful. Speech: Speech is rapid and pressured. Behavior: Behavior is hyperactive. Thought Content: Thought content normal. Cognition and Memory: Cognition and memory normal. Judgment: Judgment normal. Labs (in last 24 hours): CBC: Lab Results Component Value Date WBC 8.53 04/11/2023 RBC 4.04 04/11/2023 HGB 10.3 (L) 04/11/2023 HCT 33.0 (L) 04/11/2023 PLT 246 04/11/2023 MCV 82 04/11/2023 MCH 25.5 (L) 04/11/2023 MCHC 31.2 04/11/2023 RDW 16.7 (H) 04/11/2023 NRBC 0.0 04/11/2023 Differential: Lab Results Component Value Date WBC 8.53 04/11/2023 Coagulation: No results found for: INR , PT , PTT , CLFGN Renal: Lab Results Component Value Date NA 136 04/11/2023 K 3.9 04/11/2023 CL 103 04/11/2023 CO2 21 (L) 04/11/2023 BUN 7 04/11/2023 CREATININE 0.48 (L) 04/11/2023 GLUCOSE 112 (H) 04/11/2023 CALCIUM 9.3 04/11/2023 MG 1.7 (L) 04/11/2023 Liver: Lab Results Component Value Date AST 14 04/11/2023 ALT 18 04/11/2023 BILITOT 0.2 04/11/2023 Glucose: No results found for: PGLU Lab Results Component Value Date HGBA1C 5.2 11/21/2022 Microbiology: Results Procedure Component Value Units Date/Time Clostridiodes (Clostridium) difficile PCR [[id number]] Order Status: Sent Specimen: Stool from Rectum Comprehensive GI Panel by PCR [[id number]] Order Status: Sent Specimen: Stool from Rectum Imaging (in last 24 hours): No imaging this admission to date Assessment and plan: Rosibel Gayle is a 37 y.o. year-old female who has a past medical history of Anxiety, Arthritis,Depression, Fibromyalgia, Gastric erosions, GERD (gastroesophageal reflux disease), Hypertension, Intentional overdose, Nicotine dependence, Obesity, and Pancreatitis who presents to [facility] ED due to left upper quadrant abdominal pain with nausea, vomiting, and diarrhea. Acute on chronic alcoholic pancreatitis with intractable nausea, vomiting, and diarrhea - 4 days of intense left upper quadrant abdominal pain with intractable nausea, vomiting, and diarrhea - Lipase 36 (does not elevated always in chronic pancreatitis patients with flare) - Zofran and promethazine PRN for nausea - IVF for rehydration - CLD as tollerated - Strict Is & Os with daily weights - Restart home vitamin D, B12, pancrelipase and sucralfate when tolerating PO 2. Acute on chronic pain secondary to #1 complicated by fibromyalgia - Continue home lyrica with PRN tylenol and ibuprofen - Order 10mg oxy q4h with .5mg dilaudid q6 PRN for breakthrough pain - Miralax PRN for constipation - Monitor on continuous pulse oxymetry due to increased narcotics 3. Mild Hyperglycemia - Likely reactive - Glucose: 112 - Continue to monitor with AM labs 4. Normocytic Anemia - Likely due to choric inflammation - Hgb: 10.3 - Continue to monitor with AM labs - Transfuse if Hgb < 7 Chronic Medical Conditions: #) GERD- Continue home PPI and H2 janki #) Anxiety and Depression - Continue home duloxetine and ativan #) Insomnia- Continue melatonin HS for sleep #) Nicotine Dependence - The patient uses cigarettes - I have ordered NRT and smoking cessation counselling. I informed the patient that leaving the floor may result in delayed treatment and a longer hospital stay. #) Marijuana use- Encourage cessation #) Obesity - BMI: 38.89 - Complicates all aspects of care Fluids: LR @ 100 ml/hr Electrolytes: Continue to monitor and replace as appropriate Diet: Adult diet Diet texture: Clear liquid DVT prophylaxis: SCDs + Lovenox prophylaxis Code status: Full Code Leny Tee APRN * ED Provider Notes - Lester Fitzpatrick PA - 04/11/2023 3:14 AM EST - HPI Chief Complaint Patient presents with Abdominal Pain Ms Gayle is a 37-year-old female who presents to the ED due to abdominal pain. She was well known to our service, has presented to the ED 6 times in the past 2 weeks, today as 7th. She was acute on chronic left upper quadrant pain. She states that she has a past medical history significant for chronic pancreatitis, however no evidence has been able to be found regarding this. No CT scans the pastshowed inflammation, no recent lipase has been elevated. She states that she has an appointment with pain management on the for evaluation of a pain pump she just needs to get to them. She states that her pain got worse tonight, had some nausea and vomiting she made her pain worse. Decided to come to ED for evaluation. Denies fevers cough shortness of breath constipation diarrhea or bloody bowel movements. Jo Coma Scale Score: 15 Patient History Past Medical History: Diagnosis Date Anxiety Arthritis Depression Fibromyalgia Gastric erosions 04/19/2021 GERD (gastroesophageal reflux disease) Hypertension Intentional overdose ([facility]) 12/20/2021 Nicotine dependence Obesity Pancreatitis [...] Systems Review of Systems Constitutional: Negative for activity change, appetite change, chills and fever. Respiratory: Negative for cough, chest tightness and shortness of breath. Cardiovascular: Negative for chest pain. Gastrointestinal: Positive for abdominal pain, nausea and vomiting. Negative for abdominal distention, constipation and diarrhea. Physical Exam ED Triage Vitals [04/11/23 0325] Temp Heart Rate Resp BP 36.7 ??C (98 ??F) 83 22 (!) 142/93 SpO2 Temp Source Heart Rate Source Patient Position 98 % Oral -- Sitting BP Location FiO2 (%) Left arm -- Physical Exam Vitals reviewed. Constitutional: Appearance: She is well-developed. HENT: Head: Normocephalic and atraumatic. Cardiovascular: Rate and Rhythm: Normal rate and regular rhythm. Heart sounds: Normal heart sounds. No murmur heard. Pulmonary: Effort: Pulmonary effort is normal. No respiratory distress. Breath sounds: Normal breath sounds. No wheezing. Abdominal: General: Abdomen is flat. Palpations: Abdomen is soft. Tenderness: There is abdominal tenderness in the left upper quadrant. Skin: General: Skin is warm and dry. Neurological: Mental Status: She is alert and oriented to person, place, and time. Motor: No weakness. Psychiatric: Mood and Affect: Mood normal. Behavior: Behavior normal. ED Course & MDM Clinical Impressions as of 04/11/23 0445 Left upper quadrant abdominal pain - Medical Decision Making Rosibel Gayle is a 37 yrs old female presents today for Patient presents with: Abdominal Pain . In order to fully explore differential these tests and treatments were ordered. Orders Placed This Encounter CBC CMP Magnesium Lipase Lactic acid, venous hCG qualitative Medications morphine PF 4 mg (4 mg Intravenous Given 04/11/23 0347) ondansetron (Zofran) injection 4 mg (4 mg Intravenous Given 04/11/23 0349) lactated Ringer's infusion 1,000 mL (1,000 mL Intravenous New Bag 04/11/23 0347) oxyCODONE (Roxicodone) immediate release tablet 5 mg (5 mg Oral Given 04/11/23 0438) Differential diagnosis includes pancreatitis, acute on chronic abdominal pain, malingering. Labworkobtained as above, lipase was within normal limits. Hemoglobin was found to be 10.3. She was given a L bolus, Zofran, 4 mg of morphine. Upon re-evaluation, she states that she was still in significant abdominal pain and went to be admitted. She was given a dose of oxycodone 5 mg oral with plans to re-evaluate. Transfer of care to Dr. Ramos for further management pending re-evaluation. Consider CT imaging of abdomen and pelvis, however would not change our current management, receives frequent scans. She was encouraged to keep her appointment with pain management as scheduled on the . ED Prescriptions None Discharge Instructions Keep appointment as scheduled with pain management for evaluation of pain pump Sign Off Checklist Clinical Impression: See Transfer of Care note for Clinical Impression ED Disposition: See Transfer of Care note for ED Disposition - Lester Fitzpatrick PA 04/11/23 0445 Cosigned by Kayla Ramos MD at 04/11/2023 5:04 AM EST Associated attestation - Kayla Ramos MD - 04/11/2023 5:04 AM EST I attest to being involved in providing substantive part of the medical decision making in patient care. * ED Triage Notes - Alyse Esquivel RN - 04/11/2023 3:14 AM EST To ED from family member's home via EMS c/o abdominal [id number] ED visits recentlywith associated vomiting tonight r/t pain. Pt in NAD on arrival; tearful & anxious. 22G L wrist Hx: Pancreatitis, 400mL NaCL 4mg Zofran @ 0236 100mcg Fentanyl @ 0240 * Progress Notes - Kayla Ramos MD - 04/11/2023 3:14 AM EST I received sign-out and accepted care of this patient from the departing DANIA Fitzpatrick. Please see theprimary providers??? note for complete elements of the history, physical exam, and ED course. Illness Severity: Stable Patient Summary: Rosibel Gayle is a 37 y.o. female with a PMHx of Past Medical History: Diagnosis Date Anxiety Arthritis Depression Fibromyalgia Gastric erosions 04/19/2021 GERD (gastroesophageal reflux disease) Hypertension Intentional overdose ([facility]) 12/20/2021 Nicotine dependence Obesity Pancreatitis presented to the ED LUQ abdominal pain. Most recent vital signs: Visit Vitals BP 136/81 Pulse 95 Temp 36.7 ??C (98 ??F) (Oral) Resp 18 Ht 1.651 m (5' 5 ) Wt 106 kg (233 lb 11 oz) SpO2 96% BMI 38.89 kg/m?? OB Status Having periods Smoking Status Every Day BSA 2.2 m?? Lab and imaging results: reviewed Action plan (To Do): Pending reassessment after oxycodone. On reassessment, pt crying on walking into room. States she has not had any pain relief and has been vomiting. She pushes on her LUQ firmly without significant tenderness. She requested admission. Dilaudid 0.5 mg IV ordered. Medicine contacted for admission. Disposition: admit Clinical Impressions as of 04/11/23 0647 Left upper quadrant abdominal pain - documented in this encounter Plan of Treatment Scheduled Referrals Name Type Priority Associated Diagnoses Order Schedule Discharge Ambulatory referral to Gastroenterology Outpatient Referral Routine Left upper quadrant abdominal pain History of acute pancreatitis Intractable nausea and vomiting Expected: 05/13/2023, Expires: 10/12/2024 documented as of this encounter Procedures Procedure Name Priority Date/Time Associated Diagnosis Comments COMPREHENSIVE GI PANEL BY PCR Routine 04/12/2023 3:19 AM EST CLOSTRIDIODES (CLOSTRIDIUM) DIFFICILE,PCR Routine 04/12/2023 3:19 AM EST COMPREHENSIVE URINE DRUG SCREENING,QUALITATIVE ASSAY, >= 27 DRUG CLASSES Routine 04/12/2023 3:19 AM EST CBC W/O DIFFERENTIAL Routine 04/12/2023 2:56 AM EST PHOSPHORUS, PLASMA Routine 04/12/2023 2: 56 AM EST MAGNESIUM, PLASMA Routine 04/12/2023 2:5 6 AM EST LIPASE, PLASMA Routine 04/12/2023 2:56 AM EST COMPREHENSIVE METABOLIC PANEL, PLASMA Routine 04/12/2023 2:56 AM EST LACTATE, VENOUS STAT 04/11/2023 3:37 AM EST CBC W/O DIFFERENTIAL STAT 04/11/2023 3:37 AM EST TEST QUALITATIVE PLASMA STAT 04/11/2023 3:37 AM EST MAGNESIUM, PLASMA STAT 04/11/2023 3:3 7 AM EST LIPASE, PLASMA STAT 04/11/2023 3:37 AM EST COMPREHENSIVE METABOLIC PANEL, PLASMA STAT 04/11/2023 3:37 AM EST documented in this encounter Results * (ABNORMAL) Comprehensive urine drug screening, Qualitative Assay (04/12/2023 3:19 AM EST) Acetaminophen Positive( A) Negative 04/13/2023 5:25 AM EST [facility] Amphetamine Positive( A) Negative 04/13/2023 5:25 AM EST [facility] Fluconazole Positive( A) Negative 04/13/2023 5:25 AM EST [facility] Lidocaine Positive( A) Negative 04/13/2023 5:25 AM EST [facility] Oxycodone Positive( A) Negative 04/13/2023 5:25 AM EST [facility] Promethazine Positive( A) Negative 04/13/2023 5:25 AM EST [facility] Comprehensive Urine Drug Screen Result Positive( A) Negative 04/13/2023 5:25 AM EST [facility] Urine Urine specimen obtained by clean catch procedure / Unknown Non-blood Collection / Unknown 04/12/2023 3:19 AM EST 04/12/2023 4:02 AM EST Narrative [facility] - 04/13/2023 5:25 AM EST Drugs in urine are analyzed by gas chromatography-mass spectrometry. This test was developed and its performance characteristics determined by [facility].It has not been cleared or approved by the FDA.The laboratory is regulated under CLIA as qualified to perform high-complexity testing. This test is used for clinical purposes. Testing is performed at the [facility], [facility] Laboratory. Drugs detected MAY include the following, but are not limited to this list. Drugs will be reported if they meet the laboratory quality criteria for identification.: Acetaminophen, alprazolam, amitriptyline, amphetamine, atenolol, bupropion, butalbital, carbamazepine, chlorpheniramine, citalopram, clopidogrel, cocaine, cyclobenzaprine, desvenlafaxine, dextromethorphan, diazepam, diphenhydramine, diltiazem, doxepine, doxylamine, fentanyl, fluconazole, fluoxetine, gabapentin, guaifenesin, haloperidol, heroin, hydrocodone, hydroxyzine, ibuprofen, imipramine, ketamine, labetolol, lamotrigine, levetiracetam, lidocaine, metaxalone, methadone, methamphetamine, methocarbamol, metoclopramide, metoprolol, metronidazole, midazolam, mirtazapine, naproxen, nortriptyline, ordanstron, oxcarbazepine, oxycodone, paroxetine, phentermine, phenytoin, promethazine, propofol, propranolol, quetiapine, quinine, rantidine, sertraline, spironolactone, tizanidine, topiramate, tramadol, trazodone, trimethoprim, venlafaxine, verapamil. us Shante Romano MD LAB URINE ORDERABLES Final Re sult [facility] [address] [place] [address] * Comprehensive GI Panel by PCR (04/12/2023 3:19 AM EST) Pathologist [facility] Gastrointestinal PCR Panel Result Not Detected for all analytes Not Detected for all analytes. 04/12/2023 11:33 AM EST [facility] Stool Rectum structure / Unknown Non-blood Collection / Unknown 04/12/2023 3:19 AM EST 04/12/2023 4:02 AM EST Narrative [facility] - 04/12/2023 11:33 AM EST Analytes include: Campylobacter species, Plesiomonas shigelloides, Salmonella species, Vibrio species, Vibrio cholerae, Yersinia enterolitica, Enteroaggregative E. coli (EAEC), Enteropathogenic E. Coli (EPEC), Enterotoxigenic E. coli (ETEC), Shiga-like toxin-producing E. coli (STEC), Shigella/Enteroinvasive E. coli (EIEC), Cryptosporidium, Cyclospora cayetanensis, Entamoeba histolytica, Giardia lamblia, Adenovirus f40/41, Astrovirus, Norovirus GI/GII, Rotavirus A, and Sapovirus. Note: Clostridium difficile toxin a/b will no longer be resulted using this platform. Please order the Clostridium difficile by PCR assay if clinically indicated. Leny Tee APRN LAB MICROBIOLOGY - GENERAL O RDERABLES Final Result Performing Organization Address City/State/[facility] Co de Phone Number [facility] [address] [place] [id number] * Clostridiodes (Clostridium) difficile PCR (04/12/2023 3:19 AM EST) C difficile PCR toxin B gene DNA Result Not Detected Not Detected 04/12/2023 8:38 AM EST [facility] Stool Rectum structure / Unknown Non-blood Collection / Unknown 04/12/2023 3:19 AM EST 04/12/2023 4:02 AM EST Narrative [facility] - 04/12/2023 8:38 AM EST This test is FDA approved for use with liquid stool specimens. This test is used for ??clinical purposes. It should not be regarded as investigational or for research. This laboratory is certified under the Clinical Laboratory Improvement Amendments of 1988 (CLIA-88) as qualified to perform high complexity clinical laboratory testing. Leny Tee APRN LAB MICROBIOLOGY - GENERAL O RDERABLES Final Result Performing Organization Address City/[facility]/ZIP Co de Phone Number [facility] [address] [place] [address] * Lipase (04/12/2023 2:56 AM EST) Lipase, Plasma 20 19 - 63 U/L 04/12/2023 4:51 AM EST [facility] Blood Venous blood specimen / Unknown Venipuncture / Unknown 04/12/2023 2:56 AM EST 04/12/2023 4:05 AM EST us Shante Romano MD LAB BLOOD ORDERABLES Final Re sult Performing Organization Address [facility] Co de Phone Number [facility] [address] [place] [address] * (ABNORMAL) Phosphorus (04/12/2023 2:56 AM EST) Phosphorus, Plasma 5.0(H) 2.5 - 4.5 mg/dL 04/12/2023 4:51 AM EST [facility] Blood Venous blood specimen / Unknown Venipuncture / Unknown 04/12/2023 2:56 AM EST 04/12/2023 4:05 AM EST Leny Tee APRN LAB BLOOD ORDERABLES Final R esult Performing Organization Address City/[facility] Co de Phone Number [facility] [address] [place] [address] * Magnesium (04/12/2023 2:56 AM EST) Magnesium, Plasma 2.0 1.9 - 2.4 mg/dL 04/12/2023 4:51 AM EST [facility] Blood Venous blood specimen / Unknown Venipuncture / Unknown 04/12/2023 2:56 AM EST 04/12/2023 4:05 AM EST us Leny Tee APRN LAB BLOOD ORDERABLES Final R esult Performing Organization Address City/[facility]/ZIP Co de Phone Number [facility] [address] [place] [address] * (ABNORMAL) Comprehensive metabolic panel (04/12/2023 2:56 AM EST) [facility] Glucose, Plasma 92 74 - 99 mg/dL 04/12/2023 4:51 AM [facility] BUN, Plasma 4(L) 7 - 21 mg/dL 04/12/2023 4:51 AM [facility] Creatinine, Plasma 0.55(L) 0.60 - 1.10 mg/dL 04/12/2023 4:51 AM [facility] BUN/Creatinine Ratio 7 04/12/2023 4:51 AM [facility] Sodium, Plasma 140 136 - 145 mmol/L 04/12/2023 4:51 AM [facility] Potassium, Plasma 4.1 3.7 - 4.8 mmol/L 04/12/2023 4:51 AM [facility] Chloride, Plasma 104 97 - 107 mmol/L 04/12/2023 4:51 AM [facility] CO2, Plasma 22 22 - 29 mmol/L 04/12/2023 4:51 AM [facility] Anion Gap 14 6 - 16 mmol/L 04/12/2023 4:51 AM [facility] Total Calcium, Plasma 8.8(L) 8.9 - 10.2 mg/dL 04/12/2023 4:51 AM [facility] Total Protein 6.6 6.3 - 7.9 g/dL 04/12/2023 4:51 AM [facility] Albumin, Plasma 4.0 3.5 - 5.2 g/dL 04/12/2023 4:51 AM [facility] AST, Plasma 15 10 - 35 U/L 04/12/2023 4:51 AM [facility] ALT, Plasma 13 10 - 35 U/L 04/12/2023 4:51 AM [facility] Alkaline Phosphatase, Plasma 95 35 - 104 U/L 04/12/2023 4:51 AM [facility] Total Bilirubin, Plasma 0.3 0.2 - 1.1 mg/dL 04/12/2023 4:51 AM [facility] eGFRcr 122.0 mL/min/1.7 3m*2 04/12/2023 4:51 AM [facility] Comment:Reported eGFRcr in m L/min/1.73m2 is based the CKD-EPI 2020 equation that does not use a race coefficient. Blood Venous blood specimen / Unknown Venipuncture / Unknown 04/12/2023 2:56 AM EST 04/12/2023 4:05 AM EST us Leny Nathan Tee LANDSCAPE SUPERVISOR LAB BLOOD ORDERABLES Final R esult [facility] [address] [place] [id number] * (ABNORMAL) CBC (04/12/2023 2:56 AM EST) [facility] WBC Count 5.09 3.70 - 10.30 10*3/uL LAB HEMATOLOGY METHOD 04/12/2023 4:21 AM EST [facility] RBC Count 3.91 3.90 - 5.20 10*6/uL LAB HEMATOLOGY METHOD 04/12/2023 4:21 AM EST [facility] HGB 10.2(L) 11.2 - 15.7 g/dL LAB HEMATOLOGY METHOD 04/12/2023 4:21 AM EST [facility] HCT 32.4(L) 34.0 - 45.0 % LAB HEMATOLOGY METHOD 04/12/2023 4:21 AM EST [facility] Platelet Count 246 155 - 369 10*3/uL LAB HEMATOLOGY METHOD 04/12/2023 4:21 AM EST [facility] MCV 83 79 - 98 fL LAB HEMATOLOGY METHOD 04/12/2023 4:21 AM EST [facility] MCH 26.1 26.0 - 32.0 pg LAB HEMATOLOGY METHOD 04/12/2023 4:21 AM EST [facility] MCHC 31.5 30.7 - 35.5 g/dL LAB HEMATOLOGY METHOD 04/12/2023 4:21 AM EST [facility] RDW 16.7(H) 11.5 - 14.5 % LAB HEMATOLOGY METHOD 04/12/2023 4:21 AM EST [facility] MPV 9.1 8.8 - 12.5 fL LAB HEMATOLOGY METHOD 04/12/2023 4:21 AM EST [facility] nRBC 0.0 <=0.0 per 100 WBCs LAB HEMATOLOGY METHOD 04/12/2023 4:21 AM EST [facility] Blood Venous blood specimen / Unknown Venipuncture / Unknown 04/12/2023 2:56 AM EST 04/12/2023 4:06 AM EST Leny Tee APRN LAB BLOOD ORDERABLES Final R esult Performing Organization Address City/[facility] Co de Phone Number [facility] [address] [place] [address] * hCG qualitative (04/11/2023 3:37 AM EST) Test Negative Negative 04/11/2023 4:10 AM EST [facility] Blood Venous blood specimen / Unknown Venipuncture / Unknown 04/11/2023 3:37 AM EST 04/11/2023 3:40 AM EST Narrative [facility] - 04/11/2023 4:10 AM EST Reference Range: Males and non- females: Negative. Lester NAJERA LAB BLOOD ORDERABLES Fi nal Result Performing Organization Address [facility] de Phone Number [facility] [address] [place] [address] * Lactic acid, venous (04/11/2023 3:37 AM EST) Pathologist [facility] Lactate, Venous, Whole Blood 1.0 0.5 - 2.2 mmol/L LAB HEMATOLOGY METHOD 04/11/2023 3:42 AM EST [facility] Blood Venous blood specimen / Unknown Venipuncture / Unknown 04/11/2023 3:37 AM EST 04/11/2023 3:40 AM EST Lester NAJERA LAB BLOOD ORDERABLES Fi nal Result Performing Organization Address City/[facility] de Phone Number [facility] [address] [place] [address] * Lipase (04/11/2023 3:37 AM EST) Lipase, Plasma 36 19 - 63 U/L 04/11/2023 4:10 AM EST [facility] Blood Venous blood specimen / Unknown Venipuncture / Unknown 04/11/2023 3:37 AM EST 04/11/2023 3:40 AM EST Lester NAJERA LAB BLOOD ORDERABLES Fi nal Result Performing Organization Address City/[facility] Co de Phone Number [facility] [address] [place] [address] * (ABNORMAL) Magnesium (04/11/2023 3:37 AM EST) Magnesium, Plasma 1.7(L) 1.9 - 2.4 mg/dL 04/11/2023 4:[address] [facility] Blood Venous blood specimen / Unknown Venipuncture / Unknown 04/11/2023 3:37 AM EST 04/11/2023 3:40 AM EST Lester NAJERA LAB BLOOD ORDERABLES Fi nal Result Performing Organization Address [facility] de Phone Number [facility] [address] [place] [address] * (ABNORMAL) CMP (04/11/2023 3:37 AM EST) Glucose, Plasma 112(H) 74 - 99 mg/dL 04/11/2023 4:10 AM EST [facility] BUN, Plasma 7 7 - 21 mg/dL 04/11/2023 4:10 AM EST [facility] Creatinine, Plasma 0.48(L) 0.60 - 1.10 mg/dL 04/11/2023 4:10 AM EST [facility] BUN/Creatinine Ratio 15 04/11/2023 4:10 AM EST [facility] Sodium, Plasma 136 136 - 145 mmol/L 04/11/2023 4:10 AM EST [facility] Potassium, Plasma 3.9 3.7 - 4.8 mmol/L 04/11/2023 4:10 AM EST [facility] Chloride, Plasma 103 97 - 107 mmol/L 04/11/2023 4:10 AM EST [facility] CO2, Plasma 21(L) 22 - 29 mmol/L 04/11/2023 4:10 AM EST [facility] Anion Gap 12 6 - 16 mmol/L 04/11/2023 4:10 AM EST [facility] Total Calcium, Plasma 9.3 8.9 - 10.2 mg/dL 04/11/2023 4:10 AM EST [facility] Total Protein 6.8 6.3 - 7.9 g/dL 04/11/2023 4:10 AM EST [facility] Albumin, Plasma 4.1 3.5 - 5.2 g/dL 04/11/2023 4:10 AM EST [facility] AST, Plasma 14 10 - 35 U/L 04/11/2023 4:10 AM EST [facility] ALT, Plasma 18 10 - 35 U/L 04/11/2023 4:10 AM EST [facility] Alkaline Phosphatase, Plasma 99 35 - 104 U/L 04/11/2023 4:10 AM EST [facility] Total Bilirubin, Plasma 0.2 0.2 - 1.1 mg/dL 04/11/2023 4:10 AM EST [facility] eGFRcr 126.1 mL/min/1.7 3m*2 04/11/2023 4:10 AM EST [facility] Comment:Reported eGFRcr in m L/min/1.73m2 is based the CKD-EPI 2020 equation that does not use a race coefficient. Blood Venous blood specimen / Unknown Venipuncture / Unknown 04/11/2023 3:37 AM EST 04/11/2023 3:40 AM EST Lester NAJERA LAB BLOOD ORDERABLES Fi nal Result [facility] [address] [place] [id number] * (ABNORMAL) CBC (04/11/2023 3:37 AM EST) WBC Count 8.53 3.70 - 10.30 10*3/uL LAB HEMATOLOGY METHOD 04/11/2023 3:47 AM EST [facility] RBC Count 4.04 3.90 - 5.20 10*6/uL LAB HEMATOLOGY METHOD 04/11/2023 3:47 AM EST [facility] HGB 10.3(L) 11.2 - 15.7 g/dL LAB HEMATOLOGY METHOD 04/11/2023 3:47 AM EST [facility] HCT 33.0(L) 34.0 - 45.0 % LAB HEMATOLOGY METHOD 04/11/2023 3:47 AM EST [facility] Platelet Count 246 155 - 369 10*3/uL LAB HEMATOLOGY METHOD 04/11/2023 3:47 AM EST [facility] MCV 82 79 - 98 fL LAB HEMATOLOGY METHOD 04/11/2023 3:47 AM EST [facility] MCH 25.5(L) 26.0 - 32.0 pg LAB HEMATOLOGY METHOD 04/11/2023 3:47 AM EST [facility] MCHC 31.2 30.7 - 35.5 g/dL LAB HEMATOLOGY METHOD 04/11/2023 3:47 AM EST [facility] RDW 16.7(H) 11.5 - 14.5 % LAB HEMATOLOGY METHOD 04/11/2023 3:47 AM EST [facility] MPV 9.3 8.8 - 12.5 fL LAB HEMATOLOGY METHOD 04/11/2023 3:47 AM EST [facility] nRBC 0.0 <=0.0 per 100 WBCs LAB HEMATOLOGY METHOD 04/11/2023 3:47 AM EST [facility] Blood Venous blood specimen / Unknown Venipuncture / Unknown 04/11/2023 3:37 AM EST 04/11/2023 3:40 AM EST us Lester NAJERA LAB BLOOD ORDERABLES nal Result [facility] [address] [place] [address] documented in this encounter Visit Diagnoses Diagnosis Left upper quadrant abdominal pain- Primary Left upper quadrant abdominal pain History of acute pancreatitis Intractable nausea and vomiting Fibromyalgia Unspecified myalgia and myositis Anxiety Anxiety state, unspecified Hyperglycemia Other abnormal glucose Polyneuropathy, unspecified Overactive bladder Hypertonicity of bladder Opiate dependence (CMS/HCC) Opioid type dependence, unspecified abuse Obesity Obesity, unspecified Nicotine dependence Tobacco use disorder Marijuana use Depression Depressive disorder, not elsewhere classified documented in this encounter Admitting Diagnoses Diagnosis Left upper quadrant abdominal pain documented in this encounter Administered Medications Inactive Administered Medications - up to 3 most recent administrations Medication Order MAR Action Action Date Dose Rate Site acetaminophen (Tylenol) tablet 1,000 mg 1,000 mg, Oral, Every 6 hours scheduled, First dose on 04/11/23 at 0630, Until Discontinued, Routine Given 04/14/2023 12:41 PM EST 1,000 mg Given 04/14/2023 5:55 AM EST 1,000 mg Given 04/14/2023 2:07 AM EST 1,000 mg cholecalciferol (Vitamin D-3) tablet 2,000 Units 2,000 Units, Oral, Daily, First dose (after last reorder) on 04/13/23 at 1445, Until Discontinued Given 04/14/2023 9:15 AM EST 2,000 Units Given 04/13/2023 5:49 PM EST 2,000 Units cyanocobalamin (Vitamin B-12) tablet 1,000 mcg 1,000 mcg, Oral, Daily, First dose on 04/12/23 at 0900, Until Discontinued, Routine Given 04/14/2023 9:15 AM EST 1,000 mcg Given 04/13/2023 9:24 AM EST 1,000 mcg Given 04/12/2023 8:08 AM EST 1,000 mcg DULoxetine (Cymbalta) DR capsule 60 mg 60 mg, Oral, Daily, First dose on 04/11/23 at 0900, Until Discontinued, Routine Given 04/14/2023 9:15 AM EST 60 mg Given 04/13/2023 9:24 AM EST 60 mg Given 04/12/2023 8:08 AM EST 60 mg enoxaparin (Lovenox) syringe 40 mg 40 mg, Subcutaneous, Daily, First dose on 04/11/23 at 0900, Until Discontinued, Routine Given 04/14/2023 9:15 AM EST 40 mg Right Lower Abdomen Given 04/13/2023 9:23 AM EST 40 mg Ri ght Upper Abdomen famotidine (Pepcid) tablet 20 mg 20 mg, Oral, 2 times daily PRN, Starting on Thu04/11/23 at 0629, Until Thu04/14/23 at 1130, Routine, heartburn Given 04/12/2023 8:23 PM EST 20 mg Given 04/11/2023 8:49 PM EST 20 mg HYDROmorphone (Dilaudid) injection 0.5 mg 0.5 mg, Intravenous, Once, 1 dose, On 04/11/23 at 0525, Routine Given 04/11/2023 5:45 AM EST 0.5 mg HYDROmorphone (Dilaudid) injection 0.5 mg 0.5 mg, Intravenous, Every 6 hours PRN, Starting on 04/11/23 at 0625, Until Thu04/13/23 at 1951, Routine, breakthrough pain Given 04/13/2023 10:39 AM EST 0.5 mg Given 04/13/2023 4:20 AM EST 0.5 mg Given 04/12/2023 8:23 PM EST 0.5 mg ibuprofen tablet 800 mg 800 mg, Oral, Every 8 hours PRN, Starting on Thu04/13/23 at 0801, Until Thu04/14/23 at 1747, Routine, mild pain Given 04/14/2023 9:15 AM EST 800 mg Given 04/13/2023 5:49 PM EST 800 mg Given 04/13/2023 9:24 AM EST 800 mg lactated Ringer's infusion 1,000 mL 1,000 mL, Intravenous, Once, 1 dose, On 04/11/23 at 0340, STAT New Bag 04/11/2023 3:47 AM EST 1,000 mL lactated Ringer's infusion 100 mL/hr, Intravenous, Continuous, Starting on 04/11/23 at 0630, Until Thu04/11/23 at 1651, Routine New Bag 04/11/2023 6:52 AM EST 100 mL/hr 100 mL/hr lidocaine (Lidoderm) 5 % patch 1 patch 1 patch, Apply externally, Every 12 hours, First dose on 04/11/23 at 0635, Until Discontinued, Administer over 12 Hours Medication Applied 04/13/2023 5:48 PM EST 1 patch Other Medication Applied 04/12/2023 7:05 AM EST 1 patch Other Medication Applied 04/11/2023 6:03 PM EST 1 patch Other LORazepam (Ativan) tablet 2 mg 2 mg, Oral, 2 times daily, First dose on 04/11/23 at 0900, Until Discontinued Given 04/14/2023 9:15 AM EST 2 mg Given 04/13/2023 9:45 PM EST 2 mg Given 04/13/2023 9:24 AM EST 2 mg magnesium sulfate IVPB 2 g 2 g, Intravenous, Once, 1 dose, On 04/11/23 at 0630, Routine New Bag 04/11/2023 6:52 AM EST 2 g 25 mL/hr melatonin tablet 9 mg 9 mg (rounded from 10 mg), Oral, Nightly PRN, Starting on 04/11/23 at 0631, Until Thu04/14/23 at 1747, sleep Given 04/12/2023 10:25 PM EST 9 mg melatonin tablet 9 mg 9 mg, Oral, Nightly PRN, Starting on Thu04/13/23 at 1034, Until Thu04/14/23 at 0951, sleep Given 04/13/2023 9:44 PM EST 9 mg morphine PF 4 mg 4 mg, Intravenous, Once, 1 dose, On Thu04/11/23 at 0340, STAT Given 04/11/2023 3:47 AM EST 4 mg nicotine (Nicoderm CQ) 14 MG/24HR patch 1 patch 1 patch, Transdermal, Daily, 42 doses, First dose on Thu04/11/23 at 0900, Last dose on Thu05/22/23 at 0900, Routine nicotine (Nicoderm CQ) 7 MG/24HR patch 1 patch 1 patch, Transdermal, Daily, 14 doses, First dose on Thu05/23/23 at 0900, Last dose on Thu06/05/23 at 0900, Routine ondansetron (Zofran) injection 4 mg 4 mg, Intravenous, Once, 1 dose, On Thu04/11/23 at 0340, STAT Given 04/11/2023 3:49 AM EST 4 mg ondansetron (Zofran) injection 4 mg 4 mg, Intravenous, Every 6 hours PRN, Starting on Thu04/11/23 at 0618, Until Thu04/14/23 at 1130, Routine, nausea, vomiting Given 04/13/2023 10:39 AM EST 4 mg Given 04/13/2023 4:49 AM EST 4 mg Given 04/12/2023 1:30 PM EST 4 mg ondansetron ODT (Zofran-ODT) disintegrating tablet 4 mg 4 mg, Oral, Every 8 hours PRN, Starting on Thu04/14/23 at 1129, Until Thu04/14/23 at 1747, Routine, nausea, vomiting oxyCODONE (Roxicodone) immediate release tablet 10 mg 10 mg, Oral, Every 4 hours PRN, Starting on Thu04/11/23 at 0624, Until Thu04/14/23 at 1747, Routine, moderate pain, severe pain Given 04/14/2023 10:56 AM EST 1 0 mg Given 04/14/2023 5:55 AM EST 10 mg Given 04/14/2023 2:07 AM EST 10 mg oxyCODONE (Roxicodone) immediate release tablet 5 mg 5 mg, Oral, Once, 1 dose, On 04/11/23 at 0430, STAT Given 04/11/2023 4:38 AM EST 5 mg pancrelipase (Creon) 6000 unit capsule 1 capsule, Oral, 3 times daily with meals, First dose on Thu04/11/23 at 0830, Until Discontinued, Routine Given 04/14/2023 1:27 PM EST 1 capsule Given 04/14/2023 9:15 AM EST 1 capsule Given 04/13/2023 5:49 PM EST 1 capsule pantoprazole (Protonix) EC tablet 40 mg 40 mg, Oral, Daily, First dose on Thu04/11/23 at 0900, Until Discontinued, Routine Given 04/14/2023 9:15 AM EST 40 mg Given 04/13/2023 9:24 AM EST 40 mg Given 04/12/2023 8:08 AM EST 40 mg pregabalin (Lyrica) capsule 300 mg 300 mg, Oral, 2 times daily, First dose on Thu04/11/23 at 0900, Until Discontinued Given 04/14/2023 9:15 AM EST 300 mg Given 04/13/2023 9:45 PM EST 300 mg Given 04/13/2023 9:24 AM EST 300 mg promethazine (Phenergan) tablet 12.5 mg 12.5 mg, Oral, Every 4 hours PRN, Starting on Thu04/11/23 at 0618, Until Thu04/14/23 at 1747, Routine, nausea, vomiting Given 04/14/2023 9:14 AM EST 12.5 mg Given 04/14/2023 2:18 AM EST 12.5 mg Given 04/13/2023 5:49 PM EST 12.5 mg sodium chloride 0.9 % flush 10 mL 10 mL, Intravenous, Every 8 hours PRN, Starting on Thu04/11/23 at 0615, Until Thu04/14/23 at 1747, Routine, line care sodium chloride 0.9 % flush 10 mL 10 mL, Intravenous, As needed, Starting on Thu04/11/23 at 0615, Until Thu04/14/23 at 1747, Routine, line care sucralfate (Carafate) 1 GM/10ML suspension 1 g 1 g, Oral, Every 6 hours scheduled, First dose on Thu04/13/23 at 1200, Until Discontinued, Routine Given 04/14/2023 12:42 PM EST 1 g Given 04/14/2023 5:55 AM EST 1 g Given 04/14/2023 2:12 AM EST 1 g documented in this encounter Active and Recently Administered Medications Times are shown in EST. Scheduled Medication Order 04/12/2023 04/13/2023 04/14/2023 acetaminophen (Tylenol) tablet 1,000 mg 1,000 mg, Oral, Every 6 hours scheduled, First dose on Thu04/11/23 at 0630, Until Discontinued, Routine 0222 (Not Given - Provider: Priscilla Keane RN - Reason: Patient/family refused)0645 (Given - Provider: Priscilla Keane RN)1158 (Given - Provider: Ana Lilia Lew LPN)1711 (Given - Provider: Ana Lilia Lew LPN) 0148 (Given - Provider: Abigail Woody RN)0549 (Not Given - Provider: Abigail Woody RN - Reason: Order parameters not met)1339 (Given - Provider: Laureen Castaneda RN)1749 (Given - Provider: Laureen Castaneda RN) 0207 (Given - Provider: Abigail Woody RN)0555 (Given - Provider: Abigail Woody RN)1241 (Given - Provider: Laureen Castaneda RN) cholecalciferol (Vitamin D-3) tablet 2,000 Units 2,000 Units, Oral, Daily, First dose (after last reorder) on Thu04/13/23 at 1445, Until Discontinued 174 (Given - Provider: Laureen Castaneda RN) 0915 (Given - Provider: Laureen Castaneda RN) cyanocobalamin (Vitamin B-12) tablet 1,000 mcg 1,000 mcg, Oral, Daily, First dose on Thu04/12/23 at 0900, Until Discontinued, Routine 0808 (Given - Provider: Ana Lilia Lew LPN) 0924 (Given - Provider: Laureen Castaneda RN) 0915 (Given - Provider: Laureen Castaneda RN) DULoxetine (Cymbalta) DR capsule 60 mg 60 mg, Oral, Daily, First dose on 04/11/23 at 0900, Until Discontinued, Routine 0808 (Given - Provider: Ana Lilia Lew LPN) 0924 (Given - Provider: Laureen Castaneda RN) 0915 (Given - Provider: Laureen Castaneda RN) enoxaparin (Lovenox) syringe 40 mg 40 mg, Subcutaneous, Daily, First dose on 04/11/23 at 0900, Until Discontinued, Routine 08 (Not Given - Provider: Ana Lilia Lew LPN - Reason: Patient/family refused) 09 (Given - Provider: Laureen Castaneda RN) 0915 (Given - Provider: Laureen Castaneda RN) lidocaine (Lidoderm) 5 % patch 1 patch 1 patch, Apply externally, Every 12 hours, First dose on 04/11/23 at 0635, Until Discontinued, Administer over 12 Hours 0658 (Medication Removed - Provider: Priscilla Keane RN)0705 (Medication Applied - Provider: Priscilla Keane RN - Comment: Left Shoulder)1713 (Medication Removed - Provider: Ana Lilia Lew LPN)2141 (Not Given - Provider: Abigail Woody RN - Reason: Patient/family refused) 0551 (Not Given - Provider: Abigail Woody RN - Reason: Patient/family refused)1748 (Medication Applied - Provider: Laureen Castaneda RN - Comment: L Shoulder) 0632 (Medication Removed - Provider: Abigail Woody RN)0635 (Canceled Entry - Provider: Abigail Woody RN) LORazepam (Ativan) tablet 2 mg 2 mg, Oral, 2 times daily, First dose on 04/11/23 at 0900, Until Discontinued 0808 (Given - Provider: Ana Lilia Lew LPN)2225 (Given - Provider: Abigail Woody RN) 0924 (Given - Provider: Laureen Castaneda RN)2145 (Given - Provider: Abigail Woody RN) 0915 (Given - Provider: Laureen Castaneda RN) nicotine (Nicoderm CQ) 14 MG/24HR patch 1 patch(Linked Group 1) 1 patch, Transdermal, Daily, 42 doses, First dose on 04/11/23 at 0900, Last dose on Thu05/22/23 at 0900, Routine 0813 (Not Given - Provider: Ana Lilia Lew LPN - Reason: Patient/family refused) 0927 (Not Given - Provider: Laureen Castaneda RN - Reason: Patient/family refused) 0915 (Not Given - Provider: Laureen Castaneda RN - Reason: Patient/family refused) nicotine (Nicoderm CQ) 7 MG/24HR patch 1 patch(Linked Group 1) 1 patch, Transdermal, Daily, 14 doses, First dose on Thu05/23/23 at 0900, Last dose on Thu06/05/23 at 0900, Routine pancrelipase (Creon) 6000 unit capsule 1 capsule, Oral, 3 times daily with meals, First dose on 04/11/23 at 0830, Until Discontinued, Routine 0808 (Given - Provider: Ana Lilia Lew LPN)1158 (Given - Provider: Ana Lilia Lew LPN)1711 (Given - Provider: Ana Lilia Lew LPN) 0924 (Given - Provider: Laureen Castaneda RN)1339 (Given - Provider: Laureen Castaneda RN)1749 (Given - Provider: Laureen Castaneda RN) 0915 (Given - Provider: Laureen Castaneda RN)1327 (Given - Provider: Laureen Castaneda RN)1730 (Canceled Entry - Provider: Automatic Discharge Provider - Comment: Automatically canceled at discontinue of medication order) pantoprazole (Protonix) EC tablet 40 mg 40 mg, Oral, Daily, First dose on 04/11/23 at 0900, Until Discontinued, Routine 0808 (Given - Provider: Ana Lilia Lew LPN) 0924 (Given - Provider: Laureen Castaneda RN) 0915 (Given - Provider: Laureen Castaneda RN) pregabalin (Lyrica) capsule 300 mg 300 mg, Oral, 2 times daily, First dose on Thu04/11/23 at 0900, Until Discontinued 0808 (Given - Provider: Ana Lilia Lew LPN)2022 (Given - Provider: Abigail Woody RN) 09 (Given - Provider: Laureen Castaneda, CHANDNI)214 (Given - Provider: Abigail Woody RN) 0915 (Given - Provider: Laureen Castaneda, CHANDNI) sucralfate (Carafate) 1 GM/10ML suspension 1 g 1 g, Oral, Every 6 hours scheduled, First dose on Thu04/13/23 at 1200, Until Discontinued, Routine 1340 (Given - Provider: Laureen Castaneda RN)1749 (Given - Provider: Laureen Castaneda RN) 0212 (Given - Provider: Abigail Woody RN)0555 (Given - Provider: Abigail Woody RN)1242 (Given - Provider: Laureen Castaneda RN) PRN Medication Order 04/12/2023 04/13/2023 04/14/2023 famotidine (Pepcid) tablet 20 mg (CANCELED) 20 mg, Oral, 2 times daily PRN, Starting on Thu04/11/23 at 0629, Until Thu04/14/23 at 1130, Routine, heartburn 2022 (Given - Provider: Abigail Woody RN) HYDROmorphone (Dilaudid) injection 0.5 mg (CANCELED) 0.5 mg, Intravenous, Every 6 hours PRN, Starting on Thu04/11/23 at 0625, Until Thu04/13/23 at 1951, Routine, breakthrough pain 0222 (Given - Provider: Priscilla Keane RN)0812 (Given - Provider: Ana Lilia Lew LPN)141 (Given - Provider: Ana Lilia Lew LPN)2022 (Given - Provider: Abigail Woody RN) 0420 (Given - Provider: Abigail Woody RN)1039 (Given - Provider: Laureen Castaneda RN) ibuprofen tablet 800 mg 800 mg, Oral, Every 8 hours PRN, Starting on Thu04/13/23 at 0801, Until Thu04/14/23 at 1747, Routine, mild pain 0924 (Given - Provider: Laureen Castaneda, CHANDNI)1749 (Given - Provider: Laureen Castaneda, RN) 0915 (Given - Provider: Laureen Castaneda, RN) melatonin tablet 9 mg 9 mg (rounded from 10 mg), Oral, Nightly PRN, Starting on 04/11/23 at 0631, Until Thu04/14/23 at 1747, sleep 0247 (Not Given - Provider: Priscilla Keane RN - Reason: Patient/family refused)2225 (Given - Provider: Abigail Woody RN) 2226 (Not Given - Provider: Abigail Woody RN - Reason: Order parameters not met) melatonin tablet 9 mg (CANCELED) 9 mg, Oral, Nightly PRN, Starting on Thu04/13/23 at 1034, Until Thu04/14/23 at 0951, sleep 2144 (Given - Provider: Abigail Woody RN) ondansetron (Zofran) injection 4 mg (CANCELED) 4 mg, Intravenous, Every 6 hours PRN, Starting on 04/11/23 at 0618, Until Thu04/14/23 at 1130, Routine, nausea, vomiting 0222 (Given - Provider: Priscilla Keane RN)1330 (Given - Provider: Ana Lilia Lew LPN) 0449 (Given - Provider: Abiagil Woody RN)1039 (Given - Provider: Laureen Castaneda, CHANDNI) ondansetron ODT (Zofran-ODT) disintegrating tablet 4 mg 4 mg, Oral, Every 8 hours PRN, Starting on Thu04/14/23 at 1129, Until Thu04/14/23 at 1747, Routine, nausea, vomiting oxyCODONE (Roxicodone) immediate release tablet 10 mg 10 mg, Oral, Every 4 hours PRN, Starting on 04/11/23 at 0624, Until Thu04/14/23 at 1747, Routine, moderate pain, severe pain 0344 (Given - Provider: Priscilla Keane RN)0813 [facility]: Ana Lilia Lew LPN)1050 (Given - Provider: Afia Bush RN)1711 (Given - Provider: Ana Lilia Lew LPN)2226 (Given - Provider: Abigail Woody RN) 0551 (Given - Provider: Abigail Woody RN)0924 (Given - Provider: Laureen Castaneda, CHANDNI)1348 (Given - Provider: Laureen Castaneda, CHANDNI)1749 (Given - Provider: Laureen Castaneda, CHANDNI)2145 (Given - Provider: Abigail Woody RN) 0207 (Given - Provider: Abigail Woody RN)0555 (Given - Provider: Abigail Woody RN)1056 (Given - Provider: Laureen Castaneda, CHANDNI) promethazine (Phenergan) tablet 12.5 mg 12.5 mg, Oral, Every 4 hours PRN, Starting on 04/11/23 at 0618, Until Thu04/14/23 at 1747, Routine, nausea, vomiting 0344 (Given - Provider: Priscilla Keane RN)0808 (Given - Provider: Ana Lilia Lew LPN)1711 (Given - Provider: Ana Lilia Lew LPN)2247 (Not Given - Provider: Abigail Woody RN - Reason: Order parameters not met) 0148 (Given - Provider: Abigail Woody RN)1348 (Given - Provider: Laureen Castaneda, CHANDNI)1749 (Given - Provider: Laureen Castaneda, CHANDNI)2227 (Not Given - Provider: Abigail Woody RN - Reason: Order parameters not met) 0218 (Given - Provider: Abigail Woody RN)0914 (Given - Provider: Laureen Castaneda, CHANDNI) sodium chloride 0.9 % flush 10 mL(Linked Group 2) 10 mL, Intravenous, Every 8 hours PRN, Starting on 04/11/23 at 0615, Until Thu04/14/23 at 1747, Routine, line care sodium chloride 0.9 % flush 10 mL(Linked Group 2) 10 mL, Intravenous, As needed, Starting on Thu04/11/23 at 0615, Until Thu04/14/23 at 1747, Routine, line care Linked Groups Order Group 1: nicotine (Nicoderm CQ) 14 MG/24HR patch 1 patchJump to med 1 patch, Transdermal, Daily, 42 doses, First dose on Thu04/11/23 at 0900, Last dose on Thu05/22/23 at 0900, Routine Followed by nicotine (Nicoderm CQ) 7 MG/24HR patch 1 patchJump to med 1 patch, Transdermal, Daily, 14 doses, First dose on Thu05/23/23 at 0900, Last dose on Thu06/05/23 at 0900, Routine Group 2: Insert peripheral IV (COMPLETED) Once, On Thu04/11/23 at 0616, For 1 occurrence And Saline lock IV (COMPLETED) Once, On Thu04/11/23 at 0616, For 1 occurrence And sodium chloride 0.9 % flush 10 mLJump to med 10 mL, Intravenous, Every 8 hours PRN, Starting on Thu04/11/23 at 0615, Until Thu04/14/23 at 1747, Routine, line care And sodium chloride 0.9 % flush 10 mLJump to med 10 mL, Intravenous, As needed, Starting on Thu04/11/23 at 0615, Until Thu04/14/23 at 1747, Routine, line care documented in this encounter Additional Health Concerns [...] documented as of this encounter Care Teams Back End Engineer Relationship Specialty Start Date End Date Citlali Marquze APRN [facility] [place] [id number] PCP - General Family Medicine 03/26/23 10/19/23 documented as of this encounter
--- OUTSIDE RECORDS SUMMARY | 2024-02-03 15:13 | XMS_ITS | Encounter Summary ---
Author Organization [facility] Address [address] [place] [address] Care Team Providers Care Foiling Machine Adjuster Name Role Phone JimmyCitlali lowe Gilberto ORELLANA Primary Care Provider [phone] Encounter Details Date Type Department Care Team (Latest Contact Info) Description 04/02/2023 Travel Social History Tobacco Use Types Packs/Day [...] slept in a custodial (including now)? 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-RIB BENDER) to steady your nerves or to get [...] documented as of this encounter Care Teams Foiling Machine Adjuster Relationship Specialty Start Date End Date Citlali Marquez, ESTEBAN [address] [place] [address] PCP - General Family Medicine 03/26/23 10/19/23 documented as of this encounter
--- OUTSIDE RECORDS SUMMARY | 2024-02-03 15:14 | XMS_ITS | Encounter Summary ---
Author Organization [facility] Address [address] [place] [address] Care Team Providers Care Jig Bore Operator Name Role Phone Pcp, No Primary Care Provider Unavailabl e Encounter Details Date Type Department Care Team (Latest Contact Info) Description 03/20/2023 Travel Social History Tobacco Use Types Packs/Day [...] slept in a penitentiary (including now)? 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-IT SYSTEMS ANALYST) to steady your nerves or to [...] plan has been documented for the patient 03/25/2023 10:12 AM EST documented as of this encounter Care Teams Jig Bore Operator Relationship Specialty Start Date End Date P[place], [place] [address] PCP - General Family Medicine 03/18/23 03/25/23 documented as of this encounter
--- OUTSIDE RECORDS SUMMARY | 2024-02-03 15:14 | XMS_ITS | Encounter Summary ---
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 Name Role Phone NohemiRafiq Primary Care Provider [phone] Reason for Visit * Reason Comments Abdominal Pain * Auth/Cert (Routine) Specialty Diagnoses / Procedures Referred By Susy burks Referred To Contact Diagnoses Abdominal pain, epigastric [facility] [address] [place] [address] Phone: tel: [facility] Emergency Department [address] [place] [address] Phone: tel: Referral ID Status Reason Start Date Expiration Date Visits Re quested Visits Authorized [id number] 1 1 Encounter Details Date Type Department Care Team (Late st Contact Info) Description 03/14/2023 1:13 PM EST - 03/15/2023 9:31 AM EST Emergency [facility] Emergency [facility] [address] [place] [id number] Chad Mcclure MD [address] [place] [address] Lisa Fuller DO [address] [place] [address] Miguelito Joe MD [address] [place] [address] Zana Orr MD [address] [place] [address] Abdominal pain, epigastric (Primary Dx) [...] Recorded Due to the following: Medical status 02/20/2023 Maximum number of drinks you had on a given occasion in the last month? 5 or more drinks 02/20/2023 How many alcoholic Beverages do you typically drink in a week? 15 or more per week 02/20/2023 Have you ever felt you shoul d CUT down on your drinking? 0 02/20/2023 Have you been ANNOYED by peo ple criticizing your drinking? 0 02/20/2023 Have you felt GUILTY about your drinking? 0 02/20/2023 Have you had a drink first t caleb in the morning ([employer]) to steady your nerves or to get rid of a hangover? 0 02/20/2023 CAGE Questionnaire Score 0 023 Utilities Answer Date Recorded In the past 12 months has th e [employer], gas, oil, or water [employer] threatened to shut off services in your [...] Sign Reading Time Taken Comments Blood Pressure 142/91 03/15/2023 9:01 AM EST Pulse 80 03/15/2023 9:01 AM EST Temperature 36.6 ??C (97.9 ??F) 03/15/2023 9:01 AM ES T Respiratory Rate 18 03/15/2023 9:01 AM EST Oxygen Saturation 98% 03/15/2023 9:01 AM EST Inhaled Oxygen Concentration - - Weight 104 kg (230 lb) 03/14/2023 1:30 PM EST Height 165.1 cm (5' 5 ) 03/14/2023 1:30 PM EST Body Mass Index 38.27 03/14/2023 1:30 PM EST documented in this encounter Discharge Instructions * Discharge Instructions* Ирина Oliver APRN - 03/15/2023 8:54 AM EST You were seen in the ED today and evaluated for worsening of your chronic abdominal pain. Your labsand CT scans were within normal limits. Please follow up with GI and your PCP as scheduled. Return to the ED with any signs and symptoms of worsening condition. * Attachments The following attachments cannot be sent through Care Everywhere. * Epigastric Pain (Uncertain Cause) (Guatemalan) documented in this encounter Medications at Time of Discharge pantoprazole (Protonix) 40 MG EC tablet Take 1 tablet (40 mg) by mouth 1 (one) time each day. Do not crush, chew, or split. acetaminophen (Tylenol) 500 MG tablet Take 2 tablets (1,000 mg) by mouth every 6 (six) hours if needed for pain. 04/11/19 24 cholecalciferol (Vitamin D-3) 50 MCG (2000 UT) capsule Take 1 capsule (2,000 Units) by mouth 1 (one) time each day. 04/11/19 24 cyanocobalamin 1000 MCG tablet Take 1 tablet (1,000 mcg) by mouth 1 (one) time each day. 10/24/19 24 DULoxetine (Cymbalta) [address] capsule Take 1 capsule (60 mg) by mouth 1 (one) time each day. Do not crush or chew. 30 capsule 02/23/2023 10/24/19 24 famotidine (Pepcid) 20 MG tablet Take 1 tablet (20 mg) by mouth 2 (two) times a day if needed for heartburn. 04/11/19 24 LORazepam (Ativan) 2 MG tablet Take 1 tablet (2 mg) by mouth 2 (two) times a day. 10/24/19 24 MELATONIN PO Take 10 mg by mouth at night if needed (sleep). 04/11/19 24 naloxone (Kloxxado) 8 mg/0.1 mL nasal spray 1. Give 1 spray in nostril for no/slow breathing or cannot wake after opioid use 2. Call 911 3. Repeat in other nostril if symptoms continue 1 each 02/23/2023 10/24/19 24 nicotine (Nicoderm CQ) 14 MG/24HR patch Place 1 patch on the skin 1 (one) time each day at the same time over 24 hours. 28 patch 02/23/2023 03/18/19 24 nicotine polacrilex (Nicorette) 2 MG gum Chew 1 each (2 mg) if needed for nicotine craving. 100 each 02/23/2023 03/18/19 24 ondansetron ODT (Zofran-ODT) 4 MG disintegrating tablet Take 1 tablet (4 mg) by mouth every 8 (eight) hours if needed for nausea or vomiting. 30 tablet 02/23/2023 03/25/19 24 oxyCODONE (Roxicodone) 20 MG immediate release tablet Take 1 tablet (20 mg) by mouth every 6 (six) hours if needed (abdominal pain). 8 tablet 03/08/2023 03/25/19 24 pregabalin (Lyrica) 100 MG capsule Take 1 capsule (100 mg) by mouth 3 (three) times a day. 10/28/19 24 promethazine (Phenergan) 25 MG suppository Insert 1 suppository (25 mg) into the rectum every 6 (six) hours if needed for nausea or vomiting. 12 each 03/03/2023 03/25/19 24 promethazine (Phenergan) 25 MG tablet Take 1 tablet (25 mg) by mouth every 6 (six) hours if needed for nausea or vomiting. 30 tablet 02/19/2023 03/18/19 24 sucralfate (Carafate) 1 GM/10ML suspension Take 10 mL (1 g) by mouth 4 (four) times a day. 03/25/19 24 documented as of this encounter Miscellaneous Notes * Discharge Summary - Ирина Oliver APRN - 03/15/2023 9:31 AM EST Images from the original note were not included. Hospitalization Admit Date/Time: 03/14/2023 1:13 PM Admitting Attending: Discharge Date: 03/15/2023 Discharge Attending Physician: Zana Orr MD PCP name and Address: Rafiq Song DO [address] [place], [place] [address] [address] Referring provider name and address: No referring provider defined for this encounter. Chief Concern, Brief History of Present Illness, and Hospital Course Lila Mcnally is a 37 y.o. female with a past medical history of chronic pancreatitis, GERD, chronic pain, and fibromyalgia who presents with severe epigastric pain and vomiting with poor PO intake. She was last seen on Thursday in the ED for similar symptoms. She states she is in between doctors and cannot get opiate pain medications on an outpatient basis. Her current pain is different that her typical pancreatitis pain in that it is not as sharp, and does not include the left side of her abdomen and is only epigastric. She has been vomiting clear liquid. She denies blood in the emesis or stool. She is having a bowel movement daily. Her last bowel movement was this morning, and she is currently passing gas. In the ED, she was HDS. Work up was remarkable for normal lipase, normal lactate, and CT A/P with borderline dilatation of the jejunal loops up to 4.1 cm without transition and mild thickening of the jejunal loops. Pancreas without acute process. She was given opiate pain medications and IV fluids with relief. She was initially given zofran which did not work well, so was given compazine and unfortunately had an acute dystonic reaction. She is transferred to ED observation unit for continued symptomatic management and trial of PO intake. Upon assumption of care this AM, patient was resting comfortably. Patient was awoken and noted thather pain was persistent however a medications have not been provided. Patient was by mouth challenged successfully without difficulty able to tolerate various consistencies of food/liquids without active vomiting. At this time patient was appropriate for discharge, extensive conversation was had with the patient regarding the utilization of narcotic pain medication for her chronic pain. Patient states that her PCP appointment had been canceled as they do not manage chronic pain, patient has been referred to pain specialist multiple times however does not have a confirmed appointment at this time. Patient also missed her most recent GI appointment due to weather. Patient does note that she may be able to contact her previous PCP for assistance with her pain medication prescriptions. Upon reassessment, patient was noted to be slumped over in the stretcher, falling asleep. Patient notes that this is due to excessive sleepiness from being in the hallway and not related to her medications. Patient was given her home Lyrica, oxycodone, and Ativan 30 minutes prior to event. Patient requested an additional 5 mg of oxycodone as well as a prescription for outpatient medications, patient's Ramses was reviewed per Dominga NAIDU and she was noted to be high risk with multiple short term oxycodone scripts this month. Dominga NAIDU informed the patient we are unable to provide her with a scriptat this time, patient consumed the remainder of her breakfast, and was discharged in stable condition. Surgeries and Procedures None Medication List . acetaminophen 500 MG tablet Commonly known as: Tylenol Take 2 tablets (1,000 mg) by mouth every 6 (six) hours if needed for pain. cholecalciferol 50 MCG (2000 UT) capsule Commonly known as: Vitamin D-3 Take 1 capsule (2,000 Units) by mouth 1 (one) time each day. cyanocobalamin 1000 MCG tablet Commonly known as: Vitamin B-12 Take 1 tablet (1,000 mcg) by mouth 1 (one) time each day. DULoxetine [address] capsule Commonly known as: Cymbalta Take 1 capsule (60 mg) by mouth 1 (one) time each day. Do not crush or chew. famotidine 20 MG tablet Commonly known as: Pepcid Take 1 tablet (20 mg) by mouth 2 (two) times a day if needed for heartburn. Kloxxado 8 mg/0.1 mL nasal spray Generic drug: naloxone 1. Give 1 spray in nostril for no/slow breathing or cannot wake after opioid use 2. Call 911 3. Repeat in other nostril if symptoms continue LORazepam 2 MG tablet Commonly known as: Ativan Take 1 tablet (2 mg) by mouth 2 (two) times a day. MELATONIN PO Take 10 mg by mouth at night if needed (sleep). nicotine 14 MG/24HR patch Commonly known as: Nicoderm CQ Place 1 patch on the skin 1 (one) time each day at the same time over 24 hours. nicotine polacrilex 2 MG gum Commonly known as: Nicorette Chew 1 each (2 mg) if needed for nicotine craving. ondansetron ODT 4 MG disintegrating tablet Commonly known as: Zofran-ODT Take 1 tablet (4 mg) by mouth every 8 (eight) hours if needed for nausea or vomiting. oxyCODONE 20 MG immediate release tablet Commonly known as: Roxicodone Take 1 tablet (20 mg) by mouth every 6 (six) hours if needed (abdominal pain). pantoprazole 40 MG EC tablet Commonly known as: Protonix Take 1 tablet (40 mg) by mouth 1 (one) time each day. Do not crush, chew, or split. pregabalin 300 MG capsule Commonly known as: Lyrica Take 1 capsule (300 mg) by mouth 2 (two) times a day. * promethazine 25 MG tablet Commonly known as: Phenergan Take 1 tablet (25 mg) by mouth every 6 (six) hours if needed for nausea or vomiting. * promethazine 25 MG suppository Commonly known as: Phenergan Insert 1 suppository (25 mg) into the rectum every 6 (six) hours if needed for nausea or vomiting. sucralfate 1 GM/10ML suspension Commonly known as: Carafate Take 10 mL (1 g) by mouth 4 (four) times a day. * This list has 2 medication(s) that are the same as other medications prescribed for you. Read thedirections carefully, and ask your doctor or other care provider to review them with you. Discharge Diagnosis Medical Problems Active and Resolved Hospital Problems Hospital * (Principal) Abdominal pain, epigastric Post Discharge Instructions Discharge Instructions You were seen in the ED today and evaluated for worsening of your chronic abdominal pain. Your labsand CT scans were within normal limits. Please follow up with GI and your PCP as scheduled. Return to the ED with any signs and symptoms of worsening condition. Discharge References/Attachments Epigastric Pain (Uncertain Cause) (Guatemalan) Disposition Discharge Provider Care Team: ALYSA SANDOVAL ADULT [[id number]] Are they the primary team?: Yes [1] AVS - Discharge to Home (Printed 03/15/2023) Outpatient Follow-Up Future Appointments Date Time Provider Department Center 06/18/2023 1:00 PM Svetlana Mabry APRN [facility] Test Results Pending At Discharge None Pertinent Physical Exam At Time of Discharge Physical Exam Discharge Disposition/Condition Disposition: Home Condition: Stable (s/sx potential problems absent or manageable) I spent >30 minutes of patient care and instruction time in preparation for this discharge. Cosigned by Zana Orr MD at 03/15/2023 11:27 AM EST Associated attestation - Zana Orr MD - 03/15/2023 11:27 AM EST I attest to being involved in providing substantive part of the medical decision making in patient care. I spent 35 minutes of patient care and instruction time in preparation for this discharge. * H&P - Mehnaz Jay MD - 03/14/2023 6:15 PM EST Chief Concern & History Of Present Illness Lila Mcnally is a 37 y.o. female with a past medical history of chronic pancreatitis, GERD, andfibromyalgia who presents with severe epigastric pain and vomiting with poor PO intake. She was last seen on Thursday in the ED for similar symptoms. She states she is in between doctors and cannot get opiate pain medications on an outpatient basis. Her current pain is different that her typical pancreatitis pain in that it is not as sharp, and does not include the left side of her abdomen and is only epigastric. She has been vomiting clear liquid. She denies blood in the emesis or stool. She is having a bowel movement daily. Her last bowel movement was this morning, and she is currently passing gas. In the ED, she was HDS. Work up was remarkable for normal lipase, normal lactate, and CT A/P with borderline dilatation of the jejunal loops up to 4.1 cm without transition and mild thickening of the jejunal loops. Pancreas without acute process. She was given opiate pain medications and IV fluids with relief. She was initially given zofran which did not work well, so was given compazine and unfortunately had an acute dystonic reaction. She is transferred to ED observation unit for continued symptomatic management and trial of PO intake. Past Medical History She has a past medical history of Anxiety, Arthritis, Depression, Fibromyalgia, Gastric erosions (04/19/2021), GERD (gastroesophageal reflux disease), Hypertension, Intentional overdose ([facility]) (12/20/2021), Nicotine dependence, Obesity, and Pancreatitis. Surgical History She has a past surgical history that includes Cholecystectomy; ERCP; Esophagogastroduodenoscopy; and Hand surgery (Right). Family History Family History Problem Relation Name Age of Onset Hypertension Mother No Known Problems Father Social History She reports that she has been smoking cigarettes. She has a 10.00 pack-year smoking history. She has never used smokeless tobacco. She reports that she does not currently use alcohol. She reports current drug use. Drug: Marijuana. Occupational History none Occupational Exposure Concern Occupational Exposure No Employer: No address on file. VACCINE/DOSE DATE DATE DATE Flu 11/21/2019 12/27/2020 01/20/2022 Tetanus 06/25/2021 Pneumovax Shingles Allergies Compazine [prochlorperazine], Droperidol, and Tramadol Medications Current Facility-Administered Medications Medication Dose Route Frequency Provider Last Rate Last Admin HYDROmorphone (Dilaudid) injection 1 mg 1 mg Intravenous q3h PRN Jenelle Zamarripa MD 1 mg at 03/14/23 6290 Current Outpatient Medications Medication Sig Dispense Refill acetaminophen (Tylenol) 500 MG tablet Take 2 tablets (1,000 mg) by mouth every 6 (six) hours if needed for pain. cholecalciferol (Vitamin D-3) 50 MCG (2000 UT) capsule Take 1 capsule (2,000 Units) by mouth 1 (one) time each day. cyanocobalamin 1000 MCG tablet Take 1 tablet (1,000 mcg) by mouth 1 (one) time each day. DULoxetine (Cymbalta) [address] capsule Take 1 capsule (60 mg) by mouth 1 (one) time each day. Do not crush or chew. 30 capsule 0 famotidine (Pepcid) 20 MG tablet Take 1 tablet (20 mg) by mouth 2 (two) times a day if needed for heartburn. LORazepam (Ativan) 2 MG tablet Take 1 tablet (2 mg) by mouth 2 (two) times a day. MELATONIN PO Take 10 mg by mouth at night if needed (sleep). naloxone (Kloxxado) 8 mg/0.1 mL nasal spray 1. Give 1 spray in nostril for no/slow breathing or cannot wake after opioid use 2. Call 911 3. Repeat in other nostril if symptoms continue 1 each 0 nicotine (Nicoderm CQ) 14 MG/24HR patch Place 1 patch on the skin 1 (one) time each day at the sametime over 24 hours. 28 patch 0 nicotine polacrilex (Nicorette) 2 MG gum Chew 1 each (2 mg) if needed for nicotine craving. 100 each 0 ondansetron ODT (Zofran-ODT) 4 MG disintegrating tablet Take 1 tablet (4 mg) by mouth every 8 (eight) hours if needed for nausea or vomiting. 30 tablet 0 oxyCODONE (Roxicodone) 20 MG immediate release tablet Take 1 tablet (20 mg) by mouth every 6 (six) hours if needed (abdominal pain). 8 tablet 0 pantoprazole (Protonix) 40 MG EC tablet Take 1 tablet (40 mg) by mouth 1 (one) time each day. Do not crush, chew, or split. pregabalin (Lyrica) 300 MG capsule Take 1 capsule (300 mg) by mouth 2 (two) times a day. promethazine (Phenergan) 25 MG suppository Insert 1 suppository (25 mg) into the rectum every 6 (six) hours if needed for nausea or vomiting. 12 each 0 promethazine (Phenergan) 25 MG tablet Take 1 tablet (25 mg) by mouth every 6 (six) hours if needed for nausea or vomiting. 30 tablet 0 sucralfate (Carafate) 1 GM/10ML suspension Take 10 mL (1 g) by mouth 4 (four) times a day. Review of Systems All other systems reviewed and are negative. Physical Exam Vitals reviewed. Constitutional: Appearance: She is obese. Pulmonary: Effort: Pulmonary effort is normal. Abdominal: Palpations: Abdomen is soft. Tenderness: There is abdominal tenderness in the epigastric area. Skin: General: Skin is warm and dry. Neurological: Mental Status: She is alert and oriented to person, place, and time. Psychiatric: Mood and Affect: Mood normal. Behavior: Behavior normal. Last Recorded Vitals Blood pressure 125/86, pulse 69, temperature 36.7 ??C (98 ??F), temperature source Oral, resp. rate18, height 1.651 m (5' 5 ), weight 104 kg (230 lb), SpO2 98 %, not currently . Relevant Results CT abdomen and pelvis with IV contrast 03/14/2023 Borderline dilatation of the jejunal loops up to 4.1 cm without transition likely ileus. Mild thickening of the jejunal loops could be nonspecific or secondary to inflammatory process. Incompletely visualized indeterminate soft tissue nodule in the inferior medial right breast. Assessment/Plan Active Problems: Abdominal pain, epigastric Lila Mcnally is a 37 y.o. female with a past medical history of chronic pancreatitis, GERD, andfibromyalgia who presents with severe epigastric pain and vomiting with poor PO intake. Severe epigastric pain Poor PO intake Possible etiologies include jejunal ileus (seen on CT scan), chronic pancreatitis, functional abdominal pain, GERD - patient currently moving bowels, so will defer NG tube for decompression of ileus. Abdomen is soft and lactate wnl. - continue pain management with dilaudid 1mg Q3hr prn - LR @ 150ml/hr - monitor PO intake. Start CLD for now - continue home PPI and carafate for GERD - avoid antidopaminergic antiemetics for nausea as patient had dystonic reaction to compazine - if PO intake/pain not improving by the morning, consider GI consult +/- hospital medicine admission Soft tissue nodule in inferior medial right breast - arrange outpatient follow up at discharge Mehnaz Jay MD PGY-3, Internal Medicine Epic Chat // [phone] Cosigned by Miguelito Joe MD at 03/15/2023 2:44 AM EST Associated attestation - Miguelito Joe MD - 03/15/2023 2:44 AM EST I saw and evaluated the patient with the resident/fellow. I discussed the case with the resident/fellow and agree with the findings and plan as documented. I personally spent a total of 33 minutes on this encounter. This time includes face to face with patient, counseling, and discussion and/or coordination of care. * ED Provider Notes - Jenelle Zamarripa MD - 03/14/2023 12:41 PM EST Images from the original note were not included. - HPI Chief Complaint Patient presents with Abdominal Pain PIT Note Lila Mcnally is a 37 y.o. female who presents to ED with decreased appetite and worsening abdominal pain for the past week. Reports came to ED and had CT on Thursday. Reports midline ripping' pain. Endorses hx peptic ulcers, cholecystectomy, EGDs, and pancreatitis. Reports missed GI appt yesterday due to weather. Patient denies fever, chills, cough, chest pain, shortness of breath, nausea, vomiting, and diarrhea. Date/Time: 03/14/2023/12:51 PM Entered by Sonal Telles, acting as scribe for Dr. Garrison Lynne. Scribe Attestation: This note was dictated to me, Sonal Telles, acting as a scribe for Dr. Garrison Lynne. Attending Attestation: The documentation was recorded by Sonal Telles acting as scribe in my presence at the time of the encounter and accurately reflects the service I personally performed. Main ED note I agree with the above. Patient states when she was seen Thursday her pain was more left upper quadrant and they thought it was related to her chronic pancreatitis. She states she missed her GI appointment yesterday due to weather and last night her pain became much more epigastric and severe. Shedescribes as something trying to tear out of the front of her abdomen like in the movie Alien. She states she is also having nausea and difficulty keeping solids or liquids down. She denies pain radiating to her back. She states she has had very poor oral intake over the last 4 days since being discharged. Reported history of prior stones blocking pancreas. She denies chest pain, shortness of breath, fevers, diarrhea. She states approximately 5 minutes prior to my arrival for evaluation she hademesis and believe she vomited up the oxycodone that she was administered from the physician in triage. She states emesis was clear, water. No data recorded Patient History Past Medical History: Diagnosis Date Anxiety Arthritis Depression Fibromyalgia Gastric erosions 04/19/2021 GERD (gastroesophageal reflux disease) Hypertension Intentional overdose ([facility]) 12/20/2021 Nicotine dependence Obesity Pancreatitis Past Surgical History: Procedure Laterality Date CHOLECYSTECTOMY ERCP ESOPHAGOGASTRODUODENOSCOPY HAND SURGERY Right Family History Problem Relation Name Age of Onset Hypertension Mother No Known Problems Father Tobacco Use Smoking status: Every Day Packs/day: [...] Constitutional: Positive for appetite change. Negative for chills and fever. HENT: Negative for ear pain and sore throat. Eyes: Negative for pain and visual disturbance. Respiratory: Negative for cough and shortness of breath. Cardiovascular: Negative for chest pain and palpitations. Gastrointestinal: Positive for abdominal pain. Negative for vomiting. Genitourinary: Negative for dysuria and hematuria. Musculoskeletal: Negative for arthralgias and back pain. Skin: Negative for color change and rash. Neurological: Negative for seizures and syncope. All other systems reviewed and are negative. Physical Exam ED Triage Vitals [03/14/23 1244] Temp Heart Rate Resp BP 36.6 ??C (97.9 ??F) 91 18 (!) 144/85 SpO2 Temp Source Heart Rate Source Patient Position 99 % Oral -- -- BP Location FiO2 (%) -- -- Physical Exam Vitals and nursing note reviewed. Constitutional: General: She is in acute distress. Appearance: Normal appearance. She is ill-appearing. She is not toxic-appearing. Comments: Patient appears to feel ill and is in distress secondary to pain, nontoxic, hemodynamically stable HENT: Head: Normocephalic and atraumatic. Nose: No rhinorrhea. Mouth/Throat: Mouth: Mucous membranes are moist. Pharynx: Oropharynx is clear. Eyes: General: Right eye: No discharge. Left eye: No discharge. Extraocular Movements: Extraocular movements intact. Conjunctiva/sclera: Conjunctivae normal. Pupils: Pupils are equal, round, and reactive to light. Cardiovascular: Rate and Rhythm: Normal rate and regular rhythm. Pulmonary: Effort: Pulmonary effort is normal. No respiratory distress. Breath sounds: No stridor. Abdominal: General: There is no distension. Palpations: Abdomen is soft. Tenderness: There is abdominal tenderness (severe in epigastric area, moderate in LUQ) in the epigastric area and left upper quadrant. There is no right CVA tenderness, left CVA tenderness, guarding or rebound. Musculoskeletal: General: Normal range [...] Course & MDM ED Course as of 03/14/231841 Sat Mar 14, 2023 1510 Called to bedside for akathisia/dystonic rxn to compazine, received benadryl. VSS, no wheezing, rash, hypotension, emesis, or other signs of anaphylaxis [MW] ED Course User Index [MW] Jenelle Zamarripa MD Clinical Impressions as of 03/14/231841 Abdominal pain, epigastric Medical Decision Making Patient evaluated and treated with Dr. Mcclure. In summary, this 37 y.o. female presents to the emergency department with abdominal pain, nausea. On initial evaluation patient is hemodynamically stable,afebrile, clearly having but is nontoxic appearing. Physical exam notable for severe epigastric tenderness, moderate left upper quadrant tenderness, pain does not radiate to the back, no CVA tenderness, remainder of exam reassuring. Differential diagnosis includes but is not limited to pancreatitis, transaminitis, peptic ulcer, electrolyte abnormality, lactic acidosis, I considered mesenteric ischemia however patient has focal reproducible pain and does not have risk factors for mesenteric ische alyssia, I also considered aortic dissection however I have much lower suspicion for this given patientis hemodynamically stable, no history of hypertension, the tearing pain and does not radiate the back, and is reproducible with light anterior palpation in the epigastric region. Comorbidities of current condition include history stone blocking pancreas causing pancreatitis, chronic pancreatitis which increase patient's morbidity. Based on these concerns, the following were ordered: Orders Placed This Encounter CT Abdomen Pelvis w IV Contrast XR Chest 1 View CBC CMP Lipase Lactic acid, venous hCG, Total Beta, Quantitative, Plasma Troponin now and 120 min EKG now - STAT (adult) Insert peripheral IV ECG personally interpreted and demonstrates normal sinus rhythm, rate 74, no STEMI. Patient received oxycodone initially for treatment however she had emesis immediately after so I administered IV Dilaudid she has also received IV Zofran but had emesis after so I administered IV Compazine. Labs personally reviewed demonstrate lipase normal at 47, lactic normal at 1.5, new leukopenia withWBC 2.88 down from 4 days ago, CMP with elevated alkaline phosphatase but no other transaminitis, no findings of renal dysfunction. test negative. X-ray personally interpreted does not demonstrate any acute intrathoracic abnormality. See radiology read for final interpretation. CT abdomen pelvis personally interpreted does not demonstrate any new acute abnormality, no findings of bowel obstruction, pancreatic inflammation. Radiology read does demonstrate concern for right breast nodule. Patient was made aware of all incidental findings. See radiology read for full interpre tation. On reassessment she continues to have pain in his requiring additional doses of IV narcotics and nausea medications. At this time I believe she requires continued hospital care but I am not sure thatshe is going to require full hospitalization, I believe she is appropriate for ED observation for continued pain and nausea management to determine her disposition. I discussed this with the ED observation physician who has accepted the patient to ED obs. ED Prescriptions None Disposition Observation Provider Care Team: ALYSA SANDOVAL ADULT [56] Are they the primary team?: Yes [1] Sign Off Checklist Clinical Impression: Complete ED Disposition: Complete - Jenelle Zamarripa MD Resident 03/14/231841 Cosigned by Chad Mcclure MD at 03/15/2023 11:38 AM EST Associated attestation - Chad Mcclure MD - 03/15/2023 11:38 AM EST I saw and evaluated the patient with the resident/fellow. I discussed the case with the resident/fellow and agree with the findings and plan as documented. * ED Triage Notes - Tereza Sykes, RN - 03/14/2023 12:41 PM EST Pt reports abdominal pain and was seen on Thursday for similar complaint. Pt states that the pain has gotten worse and has decreased PO intake. documented in this encounter Plan of Treatment Not on file documented as of this encounter Procedures Procedure Name Priority Date/Time Associated Diagnosis Comments CT ABDOMEN PELVIS W IV CONTRAST STAT 03/14/2023 4:37 PM EST XR CHEST 1 VIEW STAT 03/14/2023 2:35 PM EST ECG ADULT STAT 03/14/2023 2:34 PM EST LACTATE, VENOUS STAT 03/14/2023 1:12 PM EST CBC W/O DIFFERENTIAL STAT 03/14/2023 1:12 PM EST HCG, QUANTITATIVE STAT 03/14/2023 1:1 2 PM EST LIPASE, PLASMA STAT 03/14/2023 1:12 PM EST COMPREHENSIVE METABOLIC PANEL, PLASMA STAT 03/14/2023 1:12 PM EST documented in this encounter Results * CT Abdomen Pelvis w IV Contrast (03/14/2023 4:37 PM EST) Anatomical Region Laterality Modality Abdomen, Pelvis Computed Tomogra phy Impressions 03/14/2023 5:30 PM EST Borderline dilatation of the jejunal loops up to 4.1 cm without transition likely ileus. Mild thickening of the jejunal loops could be nonspecific or secondary to inflammatory process. Incompletely visualized indeterminate soft tissue nodule in the inferior medial right breast. CRITICAL RESULT: ?? No. COMMUNICATION: Per this written report. Preliminary report signed by Abisai Acosta MD on 03/14/2023 5:01 PM By electronically signing this report, I, the attending physician, attest that I have personally reviewed the images/data for the above examination(s) and agree with the final edited report. Drafted by Abisai Acosta MD on 03/14/2023 4:55 PM Final report signed by Marce Bellamy MD on 03/14/2023 5:30 PM Narrative 03/14/2023 5:30 PM EST CLINICAL INDICATION: epigastric abd pain hx choledocolithiasis and pancreatitis, c/f ulcer or other pathology TECHNIQUE: Imaging of the abdomen and pelvis was performed, from lung bases through pubic symphysis, using spiral technique, following administration of IV contrast, Omnipaque 300, 100 mL. Delayed (excretory phase) images were performed through the kidneys. Reformatted images in the coronal and sagittal planes were generated from the axial data set to facilitate diagnostic accuracy. Total DLP (Dose-Length Product): 1037.63 mGy.cm. Please note: The reported value represents the total of one or more individual components during the CT acquisition on this date and at this time, and as such, the same value may appear in more than one CT report depending on the interpreting/reporting physicians. COMPARISON: 03/10/2023 FINDINGS: Lung Bases: Stable 5 mm right basilar nodule. Liver/Gallbladder/Biliary system: The liver demonstrates homogeneous enhancement. Prior cholecystectomy. No intra- or extra-hepatic biliary ductal dilatation. Spleen: Borderline enlarged spleen measuring up to 13.5 cm. Pancreas: The pancreas enhances homogeneously. No suspicious lesions. Adrenals: The adrenals are morphologically unremarkable. Kidneys: The kidneys demonstrate symmetric nephrogram and excretion. No renal or ureteral calculi. No hydronephrosis. Bowel/Mesentery: The lower esophagus and stomach are unremarkable. The small bowel loops are not dilated. Borderline dilatation of the jejunal loops up to 4.1 cm without transition. Mild thickening of the jejunal loops. The large bowel loops are not dilated. The appendix is not visualized. Vessels/Lymph Nodes: The abdominal aorta is unremarkable. No lymphadenopathy within the abdomen or pelvis. Fluid Survey: No free fluid in the abdomen. No free fluid in the pelvis. Pelvis: Normal uterus. A 2.1 cm luteal cyst in the right ovary. Body Wall: A 23 mm soft tissue nodule in the inferior right medial breast. Bones: No acute fracture. Procedure Note Marce Bellamy MD - 03/14/2023 CLINICAL INDICATION: epigastric abd pain hx choledocolithiasis and pancreatitis, c/f ulcer orother pathology TECHNIQUE: Imaging of the abdomen and pelvis was performed, from lung bases throughpubic symphysis, using spiral technique, following administration of IVcontrast, Omnipaque 300, 100 mL. Delayed (excretory phase) images wereperformed through the kidneys. Reformatted images in the coronal andsagittal planes were generated from the axial data set to facilitatediagnostic accuracy. Total DLP (Dose-Length Product): 1037.63 mGy.cm. Please note: The reportedvalue represents the total of one or more individual components during theCT acquisition on this date and at this time, and as such, the same valuemay appear in more than one CT report depending on theinterpreting/reporting physicians. COMPARISON: 03/10/2023 FINDINGS: Lung Bases: Stable 5 mm right basilar nodule. Liver/Gallbladder/Biliary system: The liver demonstrates homogeneousenhancement. Prior cholecystectomy. No intra- or extra-hepatic biliaryductal dilatation. Spleen: Borderline enlarged spleen measuring up to 13.5 cm. Pancreas: The pancreas enhances homogeneously. No suspicious lesions. Adrenals: The adrenals are morphologically unremarkable. Kidneys: The kidneys demonstrate symmetric nephrogram and excretion. Norenal or ureteral calculi. No hydronephrosis. Bowel/Mesentery: The lower esophagus and stomach are unremarkable. Thesmall bowel loops are not dilated. Borderline dilatation of the jejunalloops up to 4.1 cm without transition. Mild thickening of the jejunalloops. The large bowel loops are not dilated. The appendix is notvisualized. Vessels/Lymph Nodes: The abdominal aorta is unremarkable. Nolymphadenopathy within the abdomen or pelvis. Fluid Survey: No free fluid in the abdomen. No free fluid in the pelvis. Pelvis: Normal uterus. A 2.1 cm luteal cyst in the right ovary. Body Wall: A 23 mm soft tissue nodule in the inferior right medialbreast. Bones: No acute fracture. IMPRESSION: Borderline dilatation of the jejunal loops up to 4.1 cm without transitionlikely ileus. Mild thickening of the jejunal loops could be nonspecific orsecondary to inflammatory process. Incompletely visualized indeterminate soft tissue nodule in the inferiormedial right breast. CRITICAL RESULT: No. COMMUNICATION: Per this written report. Preliminary report signed by Abisai Acosta MD on 03/14/2023 5:01 PM By electronically signing this report, I, the attending physician, attestthat I have personally reviewed the images/data for the aboveexamination(s) and agree with the final edited report. Drafted by Abisai Acosta MD on 03/14/2023 4:55 PM Final report signed by Marce Bellamy MD on 03/14/2023 5:30 PM us Chad Mcclure MD IMG CT PROCEDURES Final Result * XR Chest 1 View (03/14/2023 2:35 PM EST) Anatomical Region Laterality Modality Chest Digital Radiogra phy Impressions 03/14/2023 3:07 PM EST No acute findings CRITICAL RESULT: ?? No. COMMUNICATION: Per this written report. Drafted by Juany Larose MD on 03/14/2023 3:07 PM Final report signed by Juany Larose MD on 03/14/2023 3:07 PM Narrative 03/14/2023 3:07 PM EST CLINICAL INDICATION: epigastric pain TECHNIQUE: XR CHEST 1 VIEW COMPARISON: June 20, 2021 FINDINGS: Lungs are clear. Heart and mediastinal contours are within normal limits. No pneumothorax. ??No pleural effusion. Bony structures are unremarkable. Procedure Note Juany Larose MD - 03/14/2023 CLINICAL INDICATION: epigastric pain TECHNIQUE: XR CHEST 1 VIEW COMPARISON: June 20, 2021 FINDINGS: Lungs are clear. Heart and mediastinal contours are within normal limits.No pneumothorax. No pleural effusion. Bony structures are unremarkable. IMPRESSION: No acute findings CRITICAL RESULT: No. COMMUNICATION: Per this written report. Drafted by Juany Larose MD on 03/14/2023 3:07 PM Final report signed by Juany Larose MD on 03/14/2023 3:07 PM us Chad Mcclure MD IMG XR PROCEDURES Final Result * EKG now - STAT (adult) (03/14/2023 2:34 PM EST) EKG DIAGNOSIS CLASS Borderline Abnormal MUSE ECG Ventricular Rate 74 BPM MUSE ECG Atrial Rate 74 BPM MUSE ECG SC Interval 140 ms MUSE ECG QRSD Interval 78 ms MUSE ECG QT Interval 404 ms MUSE ECG QTC Interval 448 ms MUSE ECG P [place] 31 degrees MUSE ECG R [place] 10 degrees MUSE ECG T Wave [place] 9 degrees MUSE ECG Diagnosis Normal sinus rhythm MUSE ECG Diagnosis with sinus arrhythmia MUSE ECG Diagnosis Normal ECG MUSE ECG Diagnosis Confirmed by Jennie Morales ([id number]) on 03/15/2023 3:46:31 PM MUSE ECG 03/14/2023 2:34 PM EST 03/15/2023 3:46 PM EST us Chad Mcclure MD ECG ORDERABLES Final Result MUSE ECG * hCG, Total Beta, Quantitative, Plasma (03/14/2023 1:12 PM EST) hCG, Total Beta <1 <5 mIU/mL 03/14/2023 1:56 PM EST [facility] Blood Venous blood specimen / Unknown Venipuncture / Unknown 03/14/2023 1:12 PM EST 03/14/2023 1:18 PM EST Narrative [facility] - 03/14/2023 1:56 PM EST Patients: ? Normal Range Premenopausal [...] methods or kits cannot be used interchangeably. Garrison Lynne MD LAB BLOOD ORDERABLES Final Re sult Performing Organization Address [facility] Co de Phone Number [facility] [address] [place] [address] * Lactic acid, venous (03/14/2023 1:12 PM EST) Lactate, Venous, Whole Blood 1.5 0.5 - 2.2 mmol/L LAB HEMATOLOGY METHOD 03/14/2023 1:21 PM EST [facility] Blood Venous blood specimen / Unknown Venipuncture / Unknown 03/14/2023 1:12 PM EST 03/14/2023 1:19 PM EST Garrison Lynne MD LAB BLOOD ORDERABLES Final Re sult Performing Organization Address [facility] de Phone Number [facility] [address] [place] [address] * Lipase (03/14/2023 1:12 PM EST) Lipase, Plasma 47 19 - 63 U/L 03/14/2023 1:56 PM EST [facility] Blood Venous blood specimen / Unknown Venipuncture / Unknown 03/14/2023 1:12 PM EST 03/14/2023 1:18 PM EST Garrison Lynne MD LAB BLOOD ORDERABLES Final Re sult Performing Organization Address [facility] de Phone Number [facility] [address] [place] [address] * (ABNORMAL) CMP (03/14/2023 1:12 PM EST) Glucose, Plasma 108(H) 74 - 99 mg/dL 03/14/2023 1:56 PM EST [facility] BUN, Plasma 8 7 - 21 mg/dL 03/14/2023 1:56 PM EST [facility] Creatinine, Plasma 0.43(L) 0.60 - 1.10 mg/dL 03/14/2023 1:56 PM EST [facility] BUN/Creatinine Ratio 19 03/14/2023 1:56 PM EST [facility] Sodium, Plasma 139 136 - 145 mmol/L 03/14/2023 1:56 PM EST [facility] Potassium, Plasma 4.1 3.7 - 4.8 mmol/L 03/14/2023 1:56 PM EST [facility] Chloride, Plasma 107 97 - 107 mmol/L 03/14/2023 1:56 PM [facility] CO2, Plasma 20(L) 22 - 29 mmol/L 03/14/2023 1:56 PM EST [facility] Anion Gap 12 6 - 16 mmol/L 03/14/2023 1:56 PM EST [facility] Total Calcium, Plasma 8.8(L) 8.9 - 10.2 mg/dL 03/14/2023 1:56 PM [facility] Total Protein 6.6 6.3 - 7.9 g/dL 03/14/2023 1:56 PM EST [facility] Albumin, Plasma 3.6 3.5 - 5.2 g/dL 03/14/2023 1:56 PM EST [facility] AST, Plasma 23 10 - 35 U/L 03/14/2023 1:56 PM [facility] Comment:Hemolyzed, result ma y be falsely increased. ALT, Plasma 29 10 - 35 U/L 03/14/2023 1:56 PM [facility] Alkaline Phosphatase, Plasma 118(H) 35 - 104 U/L 03/14/2023 1:56 PM [facility] Total Bilirubin, Plasma <0.2(L) 0.2 - 1.1 mg/dL 03/14/2023 1:56 PM EST [facility] eGFRcr 129.5 mL/min/1.7 3m*2 03/14/2023 1:56 PM [facility] Comment:Reported eGFRcr in m L/min/1.73m2 is based the CKD-EPI 2020 equation that does not use a race coefficient. Blood Venous blood specimen / Unknown Venipuncture / Unknown 03/14/2023 1:12 PM EST 03/14/2023 1:18 PM EST us Garrison Lynne MD LAB BLOOD ORDERABLES Final Re sult [facility] [address] [place] [address] * (ABNORMAL) CBC (03/14/2023 1:12 PM EST) WBC Count 2.88(L) 3.70 - 10.30 10*3/uL LAB HEMATOLOGY METHOD 03/14/2023 1:20 PM EST [facility] RBC Count 4.13 3.90 - 5.20 10*6/uL LAB HEMATOLOGY METHOD 03/14/2023 1:20 PM EST [facility] HGB 10.6(L) 11.2 - 15.7 g/dL LAB HEMATOLOGY METHOD 03/14/2023 1:20 PM EST [facility] HCT 34.0 34.0 - 45.0 % LAB HEMATOLOGY METHOD 03/14/2023 1:20 PM EST [facility] Platelet Count 188 155 - 369 10*3/uL LAB HEMATOLOGY METHOD 03/14/2023 1:20 PM EST [facility] MCV 82 79 - 98 fL LAB HEMATOLOGY METHOD 03/14/2023 1:20 PM EST [facility] MCH 25.7(L) 26.0 - 32.0 pg LAB HEMATOLOGY METHOD 03/14/2023 1:20 PM EST [facility] MCHC 31.2 30.7 - 35.5 g/dL LAB HEMATOLOGY METHOD 03/14/2023 1:20 PM EST [facility] RDW 16.9(H) 11.5 - 14.5 % LAB HEMATOLOGY METHOD 03/14/2023 1:20 PM EST [facility] MPV 9.8 8.8 - 12.5 fL LAB HEMATOLOGY METHOD 03/14/2023 1:20 PM EST [facility] nRBC 0.0 <=0.0 per 100 WBCs LAB HEMATOLOGY METHOD 03/14/2023 1:20 PM EST [facility] Blood Venous blood specimen / Unknown Venipuncture / Unknown 03/14/2023 1:12 PM EST 03/14/2023 1:18 PM EST Garrison Lynne MD LAB BLOOD ORDERABLES Final Re sult [facility] [address] [place] [address] documented in this encounter Visit Diagnoses Diagnosis Abdominal pain, epigastric- Primary Abdominal pain, epigastric documented in this encounter Admitting Diagnoses Diagnosis Abdominal pain, epigastric documented in this encounter Administered Medications Inactive Administered Medications - up to 3 most recent administrations Medication Order MAR Action Action Date Dose Rate Site diphenhydrAMINE (Benadryl) 50 MG/ML injection - Pyxis Override Pull 1 dose, Starting on 03/14/23 at 1502, Until 03/14/23 at 1508 diphenhydrAMINE (Benadryl) injection 25 mg 25 mg, Intravenous, Once, 1 dose, On 03/14/23 at 1505, STAT Given 03/14/2023 3:08 PM EST 25 mg diphenhydrAMINE (Benadryl) injection 25 mg 25 mg, Intravenous, Once, 1 dose, On 03/14/23 at 1655, STAT Given 03/14/2023 4:59 PM EST 25 mg diphenhydrAMINE (Benadryl) injection 50 mg 50 mg, Intravenous, Once, 1 dose, On 03/14/23 at 2110, STAT Given 03/14/2023 9:14 PM EST 50 mg DULoxetine (Cymbalta) DR capsule 60 mg 60 mg, Oral, Daily, First dose on 03/15/23 at 0900, Until Discontinued, Routine Given 03/15/2023 8:00 AM EST 60 mg gi cocktail oral solution 30 mL 30 mL, Oral, Once, 1 dose, On 03/14/23 at 1640, STAT Given 03/14/2023 5:03 PM EST 30 mL gi cocktail oral solution 30 mL 30 mL, Oral, 4 times daily PRN, Starting on 03/14/23 at 2224, Until 03/15/23 at 0948, STAT, heartburn, indigestion Given 03/15/2023 8:00 AM EST 30 mL HYDROmorphone (Dilaudid) injection 1 mg 1 mg, Intravenous, Once, 1 dose, On 03/14/23 at 1425, Routine Given 03/14/2023 2:35 PM EST 1 mg HYDROmorphone (Dilaudid) injection 1 mg 1 mg, Intravenous, Every 3 hours PRN, Starting on 03/14/23 at 1720, Until 03/14/23 at 2223, Routine, severe pain Given 03/14/2023 8:47 PM EST 1 mg Given 03/14/2023 5:32 PM EST 1 mg iohexol (OMNIPaque) 300 MG/ML injection 100 mL 100 mL, Intravenous, Once in imaging, 1 dose, Starting on 03/14/23 at 1430, Until 03/14/23 at 1626, Routine, Imaging Protocol Orders Given 03/14/2023 4:26 PM EST 100 mL ketorolac (Toradol) injection 10 mg 10 mg, Intravenous, Once, 1 dose, On 03/14/23 at 1300, STAT Given 03/14/2023 1:36 PM EST 10 mg ketorolac (Toradol) injection 15 mg 15 mg, Intravenous, Once, 1 dose, On 03/15/23 at 0055, STAT Given 03/15/2023 12:57 AM EST 15 mg lactated Ringer's infusion 1,000 mL 1,000 mL, Intravenous, Once, 1 dose, On 03/14/23 at 1300, STAT New Bag 03/14/2023 1:37 PM EST 1,000 mL lactated Ringer's infusion 150 mL/hr, Intravenous, Continuous, Starting on 03/14/23 at 1840, Until 03/15/23 at 0843, Routine New Bag 03/15/2023 2:45 AM EST 150 mL/hr 150 mL /hr New Bag 03/14/2023 7:44 PM EST 150 mL/hr 150 mL/hr LORazepam (Ativan) tablet 1 mg 1 mg, Oral, Once, 1 dose, On 03/15/23 at 0830, Routine Given 03/15/2023 8:53 AM EST 1 mg LORazepam (Ativan) tablet 2 mg 2 mg, Oral, 2 times daily, First dose on 03/14/23 at 2100, Until Discontinued Given 03/15/2023 8:20 AM EST 1 mg Given 03/14/2023 9:37 PM EST 2 mg ondansetron (Zofran) injection 4 mg 4 mg, Intravenous, Once, 1 dose, On 03/14/23 at 1300, STAT Given 03/14/2023 1:37 PM EST 4 mg ondansetron (Zofran) injection 4 mg 4 mg, Intravenous, Once, 1 dose, On 03/14/23 at 1725, STAT Given 03/14/2023 5:32 PM EST 4 mg oxyCODONE (Roxicodone) immediate release tablet 10 mg 10 mg, Oral, Every 4 hours PRN, Starting on 03/14/23 at 2223, Until 03/15/23 at 0948, STAT, moderate pain, severe pain Given 03/15/2023 8:00 AM EST 10 mg Given 03/15/2023 4:45 AM EST 10 mg Given 03/14/2023 11:50 PM EST 10 mg oxyCODONE (Roxicodone) immediate release tablet 5 mg 5 mg, Oral, Once, 1 dose, On 03/14/23 at 1300, STAT Given 03/14/2023 1:36 PM EST 5 mg pantoprazole (Protonix) EC tablet 40 mg 40 mg, Oral, 2 times daily before meals, First dose on 03/14/23 at 1850, Until Discontinued, Routine Given 03/15/2023 8:00 AM EST 40 mg Given 03/14/2023 7:55 PM EST 40 mg pregabalin (Lyrica) capsule 100 mg 100 mg, Oral, Once, 1 dose, On 03/15/23 at 0830, Routine Given 03/15/2023 8:53 AM EST 100 mg pregabalin (Lyrica) capsule 300 mg 300 mg, Oral, 2 times daily, First dose on 03/14/23 at 2100, Until Discontinued Given 03/15/2023 8:21 AM EST 200 mg Given 03/14/2023 9:38 PM EST 300 mg prochlorperazine (Compazine) injection 10 mg 10 mg, Intravenous, Once, 1 dose, On 03/14/23 at 1425, STAT Given 03/14/2023 2:35 PM EST 10 mg promethazine (Phenergan) tablet 25 mg 25 mg, Oral, Every 6 hours PRN, Starting on 03/14/23 at 2015, Until 03/15/23 at 0948, STAT, nausea, vomiting Given 03/15/2023 4:45 AM EST 25 mg Given 03/14/2023 9:37 PM EST 25 mg sucralfate (Carafate) 1 GM/10ML suspension 1 g 1 g, Oral, 3 times daily with meals, First dose on 03/14/23 at 1850, Until Discontinued, STAT Given 03/15/2023 8:00 AM EST 1 g Given 03/14/2023 7:44 PM EST 1 g documented in this encounter Active and Recently Administered Medications Times are shown in EST. Scheduled Medication Order 03/13/2023 03/14/2023 03/15/2023 diphenhydrAMINE (Benadryl) injection 25 mg (COMPLETED) 25 mg, Intravenous, Once, 1 dose, On 03/14/23 at 1505, STAT 1508 (Given - Provider: Emeka Tellez RN) diphenhydrAMINE (Benadryl) injection 25 mg (COMPLETED) 25 mg, Intravenous, Once, 1 dose, On 03/14/23 at 1655, STAT 1659 (Given - Provider: Manjit Briseno, CHANDNI) diphenhydrAMINE (Benadryl) injection 50 mg (COMPLETED) 50 mg, Intravenous, Once, 1 dose, On 03/14/23 at 2110, STAT 2114 (Given - Provider: Boston Greenwood CNA) DULoxetine (Cymbalta) DR capsule 60 mg 60 mg, Oral, Daily, First dose on 03/15/23 at 0900, Until Discontinued, Routine 0800 (Given - Provid er: Roma Ulloa RN) gi cocktail oral solution 30 mL (COMPLETED) 30 mL, Oral, Once, 1 dose, On 03/14/23 at 1640, STAT 1703 (Given - Provider: Manjit Briseno, CHANDNI) HYDROmorphone (Dilaudid) injection 1 mg (COMPLETED) 1 mg, Intravenous, Once, 1 dose, On 03/14/23 at 1425, Routine 1435 (Given - Provider: Manjit Briseno, CHANDNI) iohexol (OMNIPaque) 300 MG/ML injection 100 mL (COMPLETED) 100 mL, Intravenous, Once in imaging, 1 dose, Starting on 03/14/23 at 1430, Until 03/14/23 at 1626, Routine, Imaging Protocol Orders 1626 (Given - Provider: Mary Ellen Carbone) ketorolac (Toradol) injection 10 mg (COMPLETED) 10 mg, Intravenous, Once, 1 dose, On 03/14/23 at 1300, STAT 1336 (Given - Provider: Manjit Briseno RN) ketorolac (Toradol) injection 15 mg (COMPLETED) 15 mg, Intravenous, Once, 1 dose, On 03/15/23 at 0055, STAT 0057 (Given - Provid er: Micaela Saini RN) lactated Ringer's infusion 1,000 mL (COMPLETED) 1,000 mL, Intravenous, Once, 1 dose, On 03/14/23 at 1300, STAT 1337 (New Bag - Provider: Manjit Briseno RN)1644 (Stopped - Provider: Manjit Briseno RN) LORazepam (Ativan) tablet 1 mg (COMPLETED) 1 mg, Oral, Once, 1 dose, On 03/15/23 at 0830, Routine 0853 (Given - Provid er: Roma Ulloa RN - Comment: one tablet previouisly dropped and wasted, see mar) LORazepam (Ativan) tablet 2 mg 2 mg, Oral, 2 times daily, First dose on 03/14/23 at 2100, Until Discontinued 2136 (Given - Provider: Boston Greenwood CNA) 0820 (Given - Provider: Roma Ulloa RN - Comment: ONE 1MG TABLET DROPPED ON GROUND AND WASTED, RN TO GET ORDER FOR REST OF DOSE.) ondansetron (Zofran) injection 4 mg (COMPLETED) 4 mg, Intravenous, Once, 1 dose, On 03/14/23 at 1300, STAT 1337 (Given - Provider: Manjit Briseno RN) ondansetron (Zofran) injection 4 mg (COMPLETED) 4 mg, Intravenous, Once, 1 dose, On 03/14/23 at 1725, STAT 1732 (Given - Provider: Manjit Briseno RN) oxyCODONE (Roxicodone) immediate release tablet 5 mg (COMPLETED) 5 mg, Oral, Once, 1 dose, On 03/14/23 at 1300, STAT 1336 (Given - Provider: Manjit Briseno RN) pantoprazole (Protonix) EC tablet 40 mg 40 mg, Oral, 2 times daily before meals, First dose on 03/14/23 at 1850, Until Discontinued, Routine 195 (Given - Provider: Boston Greenwood CNA - Comment: Carafate given, waiting 2 hours) 0800 (Given - Provider: Roma Ulloa RN) pregabalin (Lyrica) capsule 100 mg (COMPLETED) 100 mg, Oral, Once, 1 dose, On 03/15/23 at 0830, Routine 0853 (Given - Provid er: Roma Ulloa RN - Comment: one tablet previouisly dropped and wasted, see mar) pregabalin (Lyrica) capsule 300 mg 300 mg, Oral, 2 times daily, First dose on 03/14/23 at 2100, Until Discontinued 2137 (Given - Provider: Boston Greenwood CNA) 0821 (Given - Provider: Roma Ulloa RN - Comment: ONE 100MG TABLET DROPPED ON GROUND AND WASTED, RN TO GET ORDER FOR REST OF DOSE.) prochlorperazine (Compazine) injection 10 mg (COMPLETED) 10 mg, Intravenous, Once, 1 dose, On 03/14/23 at 1425, STAT 1435 (Given - Provider: Manjit Briseno RN) sucralfate (Carafate) 1 GM/10ML suspension 1 g 1 g, Oral, 3 times daily with meals, First dose on 03/14/23 at 1850, Until Discontinued, STAT 1944 (Given - Provider: Boston Greenwood CNA) 0800 (Given - Provider: Roma Ulloa RN) Continuous Medication Order 03/13/2023 03/14/2023 03/15/2023 lactated Ringer's infusion 150 mL/hr, Intravenous, Continuous, Starting on 03/14/23 at 1840, Until 03/15/23 at 0843, Routine 1944 (New Bag - Provider: Boston Greenwood CNA) 0230 (Stopped - Provider: Micaela Saini RN)0245 (New Bag - Provider: Micaela Saini RN)0854 (Stopped - Provider: Roma Ulloa RN) PRN Medication Order 03/13/2023 03/14/2023 03/15/2023 gi cocktail oral solution 30 mL 30 mL, Oral, 4 times daily PRN, Starting on 03/14/23 at 2224, Until 03/15/23 at 0948, STAT, heartburn, indigestion 0800 (Given - Provid er: Roma Ulloa RN) HYDROmorphone (Dilaudid) injection 1 mg (CANCELED) 1 mg, Intravenous, Every 3 hours PRN, Starting on 03/14/23 at 1720, Until 03/14/23 at 2223, Routine, severe pain 1732 (Given - Provider: Manjit Briseno RN)2047 (Given - Provider: Boston Greenwood CNA) oxyCODONE (Roxicodone) immediate release tablet 10 mg 10 mg, Oral, Every 4 hours PRN, Starting on 03/14/23 at 2223, Until 03/15/23 at 0948, STAT, moderate pain, severe pain 2350 (Given - Provider: Micaela Saini RN) 0445 (Given - Provider: Micaela Saini RN)0800 (Given - Provider: Roma Ulloa RN) promethazine (Phenergan) tablet 25 mg 25 mg, Oral, Every 6 hours PRN, Starting on 03/14/23 at 2015, Until 03/15/23 at 0948, STAT, nausea, vomiting 213 (Given - Provider: Boston Greenwood CNA) 0445 (Given - Provider: Micaela Saini RN) documented in this encounter Additional Health Concerns Assessment Noted Time A fall risk assessment has been complete d for the patient 11/21/2020 2:30 PM EDT A Body Mass Index follow-up plan has been documented for the patient 03/15/2023 9:03 AM EST documented as of this encounter Care Teams Dope Maintenance Worker Relationship Specialty Start Date End Date Rafiq Song DO [address] [place] [id number] PCP - General 01/06/23 03/16/23 documented as of this encounter
--- OUTSIDE RECORDS SUMMARY | 2024-02-03 15:14 | XMS_ITS | Encounter Summary ---
Author Organization [facility] Address [address] [place] [address] Care Team Providers Care Lead Die Molder Name Role Phone NohemiRafiq Primary Care Provider [phone] Reason for Referral * Consultation (Routine) - Authorized Specialty Diagnoses / Procedures Referred By Susy burks Referred To Contact Gastroenterology Diagnoses Left upper quadrant abdominal pain Garrison Lynne MD [address] [place] [phone] Phone: tel: fax: Referral ID Status Reason Start Date Expiration Date Visits Requested Visits Authorized [id number] Authorized Specialty Services Required 03/15/2023 09/13/2024 1 1 * Consultation (Routine) - Closed Specialty Diagnoses / Procedures Referred By Susy burks Referred To Contact Diagnoses Left upper quadrant abdominal pain Garrison Lynne MD [address] [place] [phone] Phone: tel: fax: Referral ID Status Reason Start Date Expiration Date Visits Re quested Visits Authorized [id number] Closed 03/15/2023 09/13/2024 1 1 Reason for Visit * Reason Comments Abdominal Pain * Auth/Cert (Routine) Specialty Diagnoses / Procedures Referred By Susy burks Referred To Contact Diagnoses Abdominal pain, epigastric [facility] [address] [place] [address] Phone: tel: [facility] [address] [place] [address] Phone: tel: Referral ID Status Reason Start Date Expiration Date Visits Re quested Visits Authorized [id number] 1 1 Encounter Details Date Type Department Care Team (Late st Contact Info) Description 03/15/2023 9:51 AM EST - 03/15/2023 10:36 AM EST Emergency [facility] [address] [place] [phone] Garrison Lynne MD [address] [place] [address] Left upper quadrant abdominal pain (Primary Dx) [...] drink first t caleb in the morning (EYE-TRAINING LEAD) to steady your nerves or to get rid of a hangover? 0 02/20/2023 CAGE Questionnaire Score 0 023 Utilities Answer Date Recorded In the past 12 months has th e [employer], gas, oil, or water [employer] threatened to shut off services in your [...] Sign Reading Time Taken Comments Blood Pressure 136/68 03/15/2023 10:36 AM EST Pulse 90 03/15/2023 10:36 AM EST Temperature 36.6 ??C (97.9 ??F) 03/15/2023 10:[address] Respiratory Rate 18 03/15/2023 10:36 AM EST Oxygen Saturation 98% 03/15/2023 10:36 AM EST Inhaled Oxygen Concentration - - Weight - - Height - - Body Mass Index - - documented in this encounter Discharge Instructions * Discharge Instructions* Tanmay Leigh MD - 03/15/2023 10:28 AM EST Return to the emergency department if you experience new, changing, or worsening symptoms. You may take Tylenol and ibuprofen for symptoms. Take phenergan as prescribed for nausea. I have placed a referral for GI and for a PCP. They will call to schedule an appointment. * Attachments The following attachments cannot be sent through Care Everywhere. * Abdominal Pain, Adult (Croatian) documented in this encounter Medications at Time [...] or vomiting. 30 tablet 02/19/2023 03/18/19 24 promethazine (Phenergan) 25 MG tablet Take 1 tablet (25 mg) by mouth every 6 (six) hours if needed for nausea or vomiting. 30 tablet 03/15/2023 03/25/19 24 sucralfate (Carafate) 1 GM/10ML suspension Take 10 mL (1 g) by mouth 4 (four) times a day. 03/25/19 24 documented as of this encounter Miscellaneous Notes * ED Provider Notes - Tanmay Leigh MD - 03/15/2023 9:47 AM EST Images from the original note were not included. - HPI Chief Complaint Patient presents with Abdominal Pain HPI The patient, Ms. Mcnally, presents with a chief complaint of severe upper gastric pain and uncontrolled nausea. She reports that her pain is the same as yesterday and describes it as feeling like something is trying to leave her body. The patient has been crying throughout the night due to the pain, which she attributes to a recent change in her pain medication from Dilaudid 1mg to Oxy 10mg. She was discharged from the ED observation unit shortly before her presentation to the ER. See the discharge summary for details. Ms. Mcnally has a history of chronic issues and was scheduled to see a guest service representative on Thursday. She has been experiencing nausea and has tried various medications, including promethazine, Zofran, and Compazine. However, she had a negative reaction to Compazine, resulting in lockjaw, and requiredBenadryl administration through her IV. The patient has not been given any prescriptions for nauseamedication to take home. The patient reports no significant changes in her condition since being in the hospital, with her primary goal being to get her pain and nausea under control. She experiences a stabbing, throbbing pain in her abdomen, which she attributes to chronic pancreatitis. Keyes Coma Scale Score: 15 Patient History Past Medical History: Diagnosis Date Anxiety Arthritis Depression Fibromyalgia Gastric erosions 04/19/2021 GERD (gastroesophageal reflux disease) Hypertension Intentional overdose ([facility]) 12/20/2021 Nicotine dependence Obesity Pancreatitis [...] chills, fatigue and fever. HENT: Negative for rhinorrhea and sore throat. Eyes: Negative for pain and visual disturbance. Respiratory: Negative for cough, chest tightness, shortness of breath and wheezing. Cardiovascular: Negative for chest pain and palpitations. Gastrointestinal: Positive for abdominal pain and nausea. Negative for diarrhea and vomiting. Genitourinary: Negative for difficulty urinating, dysuria and hematuria. Skin: Negative for color change and rash. Neurological: Negative for light-headedness and numbness. Psychiatric/Behavioral: Negative for agitation. The patient is not nervous/anxious. All other systems reviewed and are negative. Physical Exam ED Triage Vitals [03/15/23 0950] Temp Heart Rate Resp BP 36.6 ??C (97.9 ??F) 110 20 (!) 137/95 SpO2 Temp Source Heart Rate Source Patient Position 97 % Oral -- -- BP Location FiO2 (%) -- -- Physical Exam Vitals reviewed. Constitutional: General: She is not in acute distress. HENT: Head: Normocephalic and atraumatic. Nose: No congestion or rhinorrhea. Mouth/Throat: Pharynx: No oropharyngeal exudate or posterior oropharyngeal erythema. Eyes: General: No scleral icterus. Pupils: Pupils are equal, round, and reactive to light. Cardiovascular: Rate and Rhythm: Normal rate and regular rhythm. Pulses: Normal pulses. Heart sounds: Normal heart sounds. Pulmonary: Effort: Pulmonary effort is normal. Breath sounds: Normal breath sounds. Abdominal: General: Abdomen is flat. Bowel sounds are normal. Palpations: Abdomen is soft. Tenderness: There is abdominal tenderness (minimal LUQ tenderness). There is no guarding or rebound. Skin: General: Skin is warm and dry. Neurological: General: No focal deficit present. Mental Status: She is alert and oriented to person, place, and time. Motor: No weakness. Psychiatric: Mood and Affect: Mood normal. Behavior: Behavior normal. Thought Content: Thought content normal. Judgment: Judgment normal. ED Course & MDM Clinical Impressions as of 03/15/23 1046 Left upper quadrant abdominal pain - Medical Decision Making ED Course/Medical decisions (narrative): Lila Mcnally is a 37 y.o. presenting to the ED with vomiting. Prior records obtained and reviewed demonstrating a history of Past Medical History: Diagnosis Date Anxiety Arthritis Depression Fibromyalgia Gastric erosions 04/19/2021 GERD (gastroesophageal reflux disease) Hypertension Intentional overdose ([facility]) 12/20/2021 Nicotine dependence Obesity Pancreatitis . Their chronic conditions currently are at goal therapy. This complicates their clinical picture because it may be exacerbating symptoms, increases the amount and complexity of data to be reviewed, and increases the risk for morbidity. Labs and imaging independently interpreted by me and used clinically prior to official reading. Please see interpretation for final read. Differential diagnoses include but are not limited to acute gastroenteritis, chronic pancreatitis, cholecystitis, COVID-19, SBO. Ruling out the most morbid conditions drove my clinical assessment. All of these have been considered, and worked up to the extent appropriate based on history and physical. Patient hemodynamically stable, afebrile on arrival. Physical exam unremarkable- no signfiicant tenderness. Patient without any new abdominal pain.. Laboratory workup, including CBC, CMP nonactionable on admission yesterday. Patient given phenergan. On reassessment, patient with improvement in vomiting and tolerating PO. She was also documented as tolerating PO immediately before discharge which was under an hour before her ED presentation. I had an interactive discussion with the patient, at which point we considered (and discussed through shared decision making) discharge. Patient discharged home in stable condition with prescription for phenergan. I have discussed this case with my attending. ED Prescriptions Medication Sig Dispense Start Date End Date Auth. Provider promethazine (Phenergan) 25 MG tablet Take 1 tablet (25 mg) by mouth every 6 (six) hours if needed for nausea or vomiting. 30 tablet 03/15/2023 04/14/2023 Tanmay Leigh MD Discharge Instructions Return to the emergency department if you experience new, changing, or worsening symptoms. You may take Tylenol and ibuprofen for symptoms. Take phenergan as prescribed for nausea. I have placed a referral for GI and for a PCP. They will call to schedule an appointment. Discharge References/Attachments Abdominal Pain, Adult (Croatian) Disposition Discharge AVS (Printed 03/15/2023) Discharge Orders Ambulatory referral for Follow Up Care Authorized Discharge Ambulatory referral to Gastroenterology Authorized Sign Off Checklist Clinical Impression: Complete ED Disposition: Complete - Tanmay Leigh MD Resident 03/15/23 1046 Cosigned by Garrison Lynne MD at 03/16/2023 9:04 AM EST Associated attestation - Garrison Lynne MD - 03/16/2023 9:04 AM EST I saw and evaluated the patient with the resident/fellow. I discussed the case with the resident/fellow and agree with the findings and plan as documented. * ED Triage Notes - Anabel Armstrong, CHANDNI - 03/15/2023 9:47 AM EST Pt just discharged from here and still having increased pain and nausea. documented in this encounter Plan of Treatment Scheduled Referrals Name Type Priority Associated Diagnoses Order Schedule Ambulatory referral for Follow Up Care Outpatient Referral Routine Left upper quadrant abdominal pain 1 Occurrences starting 03/15/2023 until 09/12/2024 Discharge Ambulatory referral to Gastroenterology Outpatient Referral Routine Left upper quadrant abdominal pain 1 Occurrences starting 03/15/2023 until 09/12/2024 documented as of this encounter Visit Diagnoses Diagnosis Left upper quadrant abdominal pain- Primary documented in this encounter Administered Medications Inactive Administered Medications - up to 3 most recent administrations Medication Order MAR Action Action Date Dose Rate Site promethazine (Phenergan) tablet 25 mg 25 mg, Oral, Once, 1 dose, On 03/15/23 at 1030, STAT Given 03/15/2023 10:33 AM EST 25 mg documented in this encounter Active and Recently Administered Medications Times are shown in EST. Scheduled Medication Order 03/13/2023 03/14/2023 03/15/2023 promethazine (Phenergan) tablet 25 mg (COMPLETED) 25 mg, Oral, Once, 1 dose, On 03/15/23 at 1030, STAT 1033 (Given - Provid er: Marly Lewis RN) documented in this encounter Additional Health Concerns Assessment Noted Time A fall risk assessment has been complete d for the patient 11/21/2020 2:30 PM EDT A Body Mass Index follow-up plan has been documented for the patient 03/15/2023 9:03 AM EST documented as of this encounter Care Teams Lead Die Molder Relationship Specialty Start Date End Date Rafiq Song DO [address] [place] [address] PCP - General 01/06/23 03/16/23 documented as of this encounter
--- OUTSIDE RECORDS SUMMARY | 2024-02-03 15:14 | XMS_ITS | Encounter Summary ---
Author Organization [facility] Address [address] [place] [address] Care Team Providers Care Fertilizer Applicator Name Role Phone Rafiq Song Primary Care Provider [phone] Encounter Details Date Type Department Care Team (Latest Contact Info) Description 03/14/2023 Travel Social History Tobacco Use Types Packs/Day [...] drink first t caleb in the morning (EYE-HEAD CHEF) to steady your nerves or to get [...] documented as of this encounter Care Teams Fertilizer Applicator Relationship Specialty Start Date End Date Rafiq Song DO [address] [place] [address] PCP - General 01/06/23 03/16/23 documented as of this encounter
--- OUTSIDE RECORDS SUMMARY | 2024-02-03 15:14 | XMS_ITS | Encounter Summary ---
Author Organization Healthcare Address [address] [place] [address] Care Team Providers Care Surface Water Manager Name Role Phone PattersonCitlali lowe Gilberto ORELLANA Primary Care Provider [phone] Reason for Referral * Consultation (Routine) - Authorized Specialty Diagnoses / Procedures Referred By Susy burks Referred To Contact Diagnoses Left upper quadrant abdominal pain Laureen Mark APRN [address] [place] [address] Phone: tel: fax: Referral ID Status Reason Start Date Expiration Date V isits Requested Visits Authorized [id number] Authorized 03/29/2023 09/27/2024 1 1 Reason for Visit * Reason Comments Abdominal Pain Encounter Details Date Type Department Care Team (Late st Contact Info) Description 03/29/2023 5:53 PM EST - 03/29/2023 7:56 PM EST Emergency [facility] Emergency Department [address] [place] [address] Left upper quadrant abdominal pain [...] drink first t caleb in the morning (EYE-DURABLE MEDICAL EQUIPMENT TECHNICIAN) to steady your nerves or to get rid of a hangover? 0 03/18/2023 CAGE Questionnaire Score 0 024 Utilities Answer Date Recorded In the past 12 months has e [employer], [employer], oil, or water [employer] threatened to shut off services in your [...] Sign Reading Time Taken Comments Blood Pressure 168/92 03/29/2023 5:52 PM EST Pulse 58 03/29/2023 5:52 PM EST Temperature 36.5 ??C (97.7 ??F) 03/29/2023 5:52 PM ES T Respiratory Rate 19 03/29/2023 5:52 PM EST Oxygen Saturation 97% 03/29/2023 5:52 PM EST Inhaled Oxygen Concentration - - Weight 106 kg (232 lb 12.9 oz) 03/29/2023 5:52 P M EST Height - - Body Mass Index 38.74 03/26/2023 11:09 AM EST documented in this encounter Discharge Instructions * Discharge Instructions* Laureen Mark APRN - 03/29/2023 7:43 PM EST - today you were evaluated in the emergency department for abdominal pain, all of your lab work wasnormal - please follow-up with PCP, have placed a referral for follow-up care - increase your fluid intake - keep your follow-up appointment with GI this month - return to the ED for worsening of condition * Attachments The following attachments cannot be sent through Care Everywhere. * Abdominal Pain, Adult (Greek) documented in this encounter Medications at Time [...] 5 doses. 10 tablet 03/25/2023 4 pancrelipase, Pow-Twjj-Vovy, (Creon) [id number] units capsule Take 1 capsule by mouth [...] Miscellaneous Notes * ED Provider Notes - Laureen Mark APRN - 03/29/2023 5:39 PM EST Images from the original note were not included. - HPI Chief Complaint Patient presents with Abdominal Pain Patient is a 37-year-old female with PMHx pancreatitis, chronic abdominal pain, fibromyalgia, frequent ED visits, drug-seeking behavior who presents to the ED for complaints of acute on chronic upperabdominal pain. Patient states she is having nausea, difficulty with PO. She states she was recently discharged from the hospital and was given oxycodone but has ran out of her prescription. Patient states she has an appointment to see GI later this month. States she was advised her last visit thatozzie needs to follow with pain management but has not been able to do so. Denies fever, chills, cough, shortness of breath, chest pain, vomiting, dysuria, oliguria. No data recorded Patient History Past Medical History: Diagnosis Date Anxiety Arthritis Depression Fibromyalgia Gastric erosions 04/19/2021 GERD (gastroesophageal reflux disease) Hypertension Intentional overdose ([facility]) 12/20/2021 Nicotine dependence [...] for abdominal pain and nausea. Negative for vomiting. Genitourinary: Negative for dysuria and hematuria. Musculoskeletal: Negative for arthralgias and back pain. Skin: Negative for color change and rash. Neurological: Negative for seizures and syncope. All other systems reviewed and are negative. Physical Exam ED Triage Vitals [03/29/23 1752] Temp Heart Rate Resp BP 36.5 ??C (97.7 ??F) 58 19 (!) 168/92 SpO2 Temp Source Heart Rate Source Patient Position 97 % Oral -- -- BP Location FiO2 (%) -- -- Physical Exam Vitals and nursing note reviewed. Constitutional: General: She is not in acute distress. Appearance: She is well-developed. HENT: Head: Normocephalic and atraumatic. Eyes: Extraocular Movements: Extraocular movements intact. Conjunctiva/sclera: [...] the left upper quadrant. There is no right CVA tenderness, left CVA tenderness or guarding. Negative signs include Carlson's sign. Musculoskeletal: General: No swelling. Cervical back: Neck supple. Skin: General: Skin is warm and dry. Capillary Refill: Capillary refill takes less than 2 seconds. Neurological: Mental Status: She is alert. Psychiatric: Mood and Affect: Mood normal. ED Course & MDM Clinical Impressions as of 03/29/232038 Left upper quadrant abdominal pain - Medical Decision Making In summary, patient is a 37-year-old female with PMHx pancreatitis, chronic abdominal pain, fibromyalgia, frequent ED visits, drug-seeking behavior who presents to the ED for complaints of acute on chronic upper abdominal pain. Patient states she is having nausea, difficulty with PO. She states shewas recently discharged from the hospital and was given oxycodone but has ran out of her prescription. Patient states she has an appointment to see GI later this month. States she was advised her last visit that she needs to follow with pain management but has not been able to do so. Denies fever, chills, cough, shortness of breath, chest pain, vomiting, dysuria, oliguria. Differential diagnosis include pancreatitis, chronic abdominal pain, infectious process, , drug-seeking behavior among others. Upon initial evaluation in the ED patient is alert, oriented and cooperative. Her physical exam is remarkable for left upper quadrant abdominal pain. Abdomen is soft, nondistended. Reviewing recent hospitalization notes, it is noted that the patient has been evaluated in the ED multiple times for similar complaints including 03/15/23, 03/14/23, 03/10/23, 03/08/23, 03/07/23, 03/03/23, 03/01/23, 02/23/23, 02/22/23, 02/21/23, 02/20/23, 02/18/23. During 02/20/23 hospitalization, she was to follow up with [facility] to evaluate for celiac plexus block, however per chart review, GI clinic was unable to reach the patient despite multiple telephone attempts, per patient, she had an appointment on Thursday that she missed. On a previous ED visit, GI was consulted for celiac plexus block and patient not a candidate given no imaging evidence of chronic pancreatitis. Patient was discha rged from the hospital with oxycodone 20 mg. Shared decision making used today, and will obtain labs and symptomatically treat patient with 1L LR, Dilaudid 1 mg, Zofran 4 mg. CBC unremarkable for any leukocytosis, stable H&H. CMP unremarkable for any abnormalities. Lipase normal. Patient states her pain did improve after the Dilaudid administration. I advised her that her lab work is normal and I do not feel that she needs any additional imaging at this time. I discussed withpatient that she will have to follow-up with pain management as this is not an issue that can be managed with frequent ED visits. I am concerned for drug-seeking behavior as patient is requesting another prescription for oxycodone upon discharge which I advised her we will not provide. She was ableto tolerate PO, she is hemodynamically stable, and labs are unremarkable. I am discharging the patient home, advised her to continue to keep her follow-up appointment with GI. She states she does nothave a PCP so I placed a referral for follow-up care. ED Prescriptions None Discharge Instructions - today you were evaluated in the emergency department for abdominal pain, all of your lab work wasnormal - please follow-up with PCP, have placed a referral for follow-up care - increase your fluid intake - keep your follow-up appointment with GI this month - return to the ED for worsening of condition Discharge References/Attachments Abdominal Pain, Adult (Greek) Disposition Discharge AVS (Printed 03/29/2023) Follow-Ups: Follow up with Citlali Marquez APRN (Family Medicine) in 1 week (04/05/2023) Discharge Orders Ambulatory referral for Follow Up Care Authorized Sign Off Checklist Clinical Impression: Complete ED Disposition: Complete - Laureen Mark APRN 03/29/232038 Cosigned by Tom Hernandez MD at 03/31/2023 7:46 PM EST Associated attestation - Tom Hernandez MD - 03/31/2023 7:46 PM EST The patient was seen only by Advanced Practice Provider (AJAY), and care was reviewed with me. * ED Triage Notes - Sherrill Angel RN - 03/29/2023 5:39 PM EST Pt c/o LUQ stabbing pain starting 2 days ago. Pt has referral appointments regarding recurring abdominal pain, pt was told she was going to be referral to a pain clinic but has not heard anything back/no appointment calls. documented in this encounter Plan of Treatment Scheduled Referrals Name Type Priority Associated Diagnoses Order Schedule Ambulatory referral for Follow Up Care Outpatient Referral Routine Left upper quadrant abdominal pain 1 Occurrences starting 03/29/2023 until 09/26/2024 documented as of this encounter Procedures Procedure Name Priority Date/Time Associated Diagnosis Comments LACTATE, VENOUS STAT 03/29/2023 6:47 PM EST CBC WITH AUTO DIFFERENTIAL STAT 03/29/2023 6:47 PM EST LIPASE, PLASMA STAT 03/29/2023 6:47 PM EST COMPREHENSIVE METABOLIC PANEL, PLASMA STAT 03/29/2023 6:47 PM EST documented in this encounter Results * Lactic acid, venous (03/29/2023 6:47 PM EST) [facility] Lactate, Venous, Whole Blood 1.6 0.5 - 2.2 mmol/L LAB HEMATOLOGY METHOD 03/29/2023 6:53 PM EST [facility] Blood Venous blood specimen / Unknown Venipuncture / Unknown 03/29/2023 6:47 PM EST 03/29/2023 6:51 PM EST Laureen Mark BENCH WORKER HOLLOW HANDLE LAB BLOOD ORDERABLES Final Result Performing Organization Address City/[facility]/ZIP Co de Phone Number [facility] [address] [place] [address] * Lipase (03/29/2023 6:47 PM EST) [facility] Lipase, Plasma 26 19 - 63 U/L 03/29/2023 7:15 PM EST [facility] Blood Venous blood specimen / Unknown Venipuncture / Unknown 03/29/2023 6:47 PM EST 03/29/2023 6:51 PM EST [facility] ORDER[facility] Final Result Performing Organization Address City/[facility] de Phone Number [facility] [address] [place] [address] * (ABNORMAL) CMP (03/29/2023 6:47 PM EST) [facility] Glucose, Plasma 98 74 - 99 mg/dL 03/29/2023 7:15 PM EST [facility] BUN, Plasma 12 7 - 21 mg/dL 03/29/2023 7:15 PM EST [facility] Creatinine, Plasma 0.49(L) 0.60 - 1.10 mg/dL 03/29/2023 7:15 PM EST [facility] BUN/Creatinine Ratio 24 03/29/2023 7:15 PM EST [facility] Sodium, Plasma 137 136 - 145 mmol/L 03/29/2023 7:15 PM EST [facility] Potassium, Plasma 4.0 3.7 - 4.8 mmol/L 03/29/2023 7:15 PM EST [facility] Chloride, Plasma 102 97 - 107 mmol/L 03/29/2023 7:15 PM EST [facility] CO2, Plasma 23 22 - 29 mmol/L 03/29/2023 7:15 PM EST [facility] Anion Gap 12 6 - 16 mmol/L 03/29/2023 7:15 PM EST [facility] Total Calcium, Plasma 9.2 8.9 - 10.2 mg/dL 03/29/2023 7:15 PM EST [facility] Total Protein 6.8 6.3 - 7.9 g/dL 03/29/2023 7:15 PM EST [facility] Albumin, Plasma 3.5 3.5 - 5.2 g/dL 03/29/2023 7:15 PM EST [facility] AST, Plasma 25 10 - 35 U/L 03/29/2023 7:15 PM EST [facility] Comment:Hemolyzed, result ma y be falsely increased. ALT, Plasma 33 10 - 35 U/L 03/29/2023 7:15 PM EST [facility] Alkaline Phosphatase, Plasma 125(H) 35 - 104 U/L 03/29/2023 7:15 PM EST [facility] Total Bilirubin, Plasma 0.2 0.2 - 1.1 mg/dL 03/29/2023 7:15 PM EST [facility] eGFRcr 125.4 mL/min/1.7 3m*2 03/29/2023 7:15 PM EST [facility] Comment:Reported eGFRcr in m L/min/1.73m2 is based the CKD-EPI 2020 equation that does not use a race coefficient. Blood Venous blood specimen / Unknown Venipuncture / Unknown 03/29/2023 6:47 PM EST 03/29/2023 6:51 PM EST Laureen Mark APRN LAB BLOOD ORDERABLES Final Result [facility] [address] [place] [address] * (ABNORMAL) CBC w/diff (03/29/2023 6:47 PM EST) WBC Count 5.60 3.70 - 10.30 10*3/uL LAB HEMATOLOGY METHOD 03/29/2023 6:54 PM EST [facility] RBC Count 3.81(L) 3.90 - 5.20 10*6/uL LAB HEMATOLOGY METHOD 03/29/2023 6:54 PM EST [facility] HGB 9.9(L) 11.2 - 15.7 g/dL LAB HEMATOLOGY METHOD 03/29/2023 6:54 PM EST [facility] HCT 31.0(L) 34.0 - 45.0 % LAB HEMATOLOGY METHOD 03/29/2023 6:54 PM EST [facility] Platelet Count 238 155 - 369 10*3/uL LAB HEMATOLOGY METHOD 03/29/2023 6:54 PM EST [facility] MCV 81 79 - 98 fL LAB HEMATOLOGY METHOD 03/29/2023 6:54 PM EST [facility] MCH 26.0 26.0 - 32.0 pg LAB HEMATOLOGY METHOD 03/29/2023 6:54 PM EST [facility] MCHC 31.9 30.7 - 35.5 g/dL LAB HEMATOLOGY METHOD 03/29/2023 6:54 PM EST [facility] RDW 16.5(H) 11.5 - 14.5 % LAB HEMATOLOGY METHOD 03/29/2023 6:54 PM EST [facility] MPV 9.9 8.8 - 12.5 fL LAB HEMATOLOGY METHOD 03/29/2023 6:54 PM [facility] nRBC 0.0 <=0.0 per 100 WBCs LAB HEMATOLOGY METHOD 03/29/2023 6:54 PM EST [facility] Differential Type Automated LAB HEMATOLOGY METHOD 03/29/2023 6:54 PM EST [facility] Neutrophils % 62.0 % LAB HEMATOLOGY METHOD 03/29/2023 6:54 PM EST [facility] Lymphocytes % 29.0 % LAB HEMATOLOGY METHOD 03/29/2023 6:54 PM EST [facility] Monocytes % 6.0 % LAB HEMATOLOGY METHOD 03/29/2023 6:54 PM EST [facility] Eosinophils % 1.0 % LAB HEMATOLOGY METHOD 03/29/2023 6:54 PM EST [facility] Basophils % 1.0 % LAB HEMATOLOGY METHOD 03/29/2023 6:54 PM EST [facility] Immature Granulocytes % 1.0 % LAB HEMATOLOGY METHOD 03/29/2023 6:54 PM EST [facility] Neutrophils Absolute 3.46 1.60 - 6.10 10*3/uL LAB HEMATOLOGY METHOD 03/29/2023 6:54 PM EST [facility] Lymphocytes Absolute 1.62 1.20 - 3.90 10*3/uL LAB HEMATOLOGY METHOD 03/29/2023 6:54 PM EST [facility] Monocytes Absolute 0.36 0.30 - 0.90 10*3/uL LAB HEMATOLOGY METHOD 03/29/2023 6:54 PM EST [facility] Eosinophils Absolute 0.07 0.00 - 0.50 10*3/uL LAB HEMATOLOGY METHOD 03/29/2023 6:54 PM EST [facility] Basophils Absolute 0.06 0.00 - 0.10 10*3/uL LAB HEMATOLOGY METHOD 03/29/2023 6:54 PM EST [facility] Immature Granulocytes Absolute 0.03 0.00 - 0.06 10*3/uL LAB HEMATOLOGY METHOD 03/29/2023 6:54 PM EST [facility] Blood Venous blood specimen / Unknown Venipuncture / Unknown 03/29/2023 6:47 PM EST 03/29/2023 6:51 PM EST Narrative [facility] - 03/29/2023 6:54 PM EST Therapeutic decision making should be based on absolute values, rather than percentages. Laureen Mark BENCH WORKER HOLLOW HANDLE LAB BLOOD ORDERABLES Final Result [facility] [address] [place] [address] documented in this encounter Visit Diagnoses Diagnosis Left upper quadrant abdominal pain- Primary documented in this encounter Administered Medications Inactive Administered Medications - up to 3 most recent administrations Medication Order MAR Action Action Date Dose Rate Site HYDROmorphone (Dilaudid) injection 1 mg 1 mg, Intravenous, Once, 1 dose, On 03/29/23 at 1810, STAT Given 03/29/2023 7:28 PM EST 1 mg lactated Ringer's infusion 1,000 mL 1,000 mL, Intravenous, Once, 1 dose, On 03/29/23 at 1810, STAT New Bag 03/29/2023 7:30 PM EST 1,000 mL ondansetron (Zofran) injection 4 mg 4 mg, Intravenous, Once, 1 dose, On 03/29/23 at 1810, STAT Given 03/29/2023 7:28 PM EST 4 mg oxyCODONE (Roxicodone) immediate release tablet 5 mg 5 mg, Oral, Once, 1 dose, On 03/29/23 at 1945, STAT Given 03/29/2023 7:52 PM EST 5 mg documented in this encounter Active and Recently Administered Medications Times are shown in EST. Scheduled Medication Order 03/27/2023 03/28/2023 03/29/2023 HYDROmorphone (Dilaudid) injection 1 mg (COMPLETED) 1 mg, Intravenous, Once, 1 dose, On 03/29/23 at 1810, STAT 1928 (Given - Provid er: Jassi Downs RN) lactated Ringer's infusion 1,000 mL (COMPLETED) 1,000 mL, Intravenous, Once, 1 dose, On 03/29/23 at 1810, STAT 1930 (New Bag - Prov ider: Jassi Downs RN) ondansetron (Zofran) injection 4 mg (COMPLETED) 4 mg, Intravenous, Once, 1 dose, On 03/29/23 at 1810, STAT 1928 (Given - Provid er: Jassi Downs RN) oxyCODONE (Roxicodone) immediate release tablet 5 mg (COMPLETED) 5 mg, Oral, Once, 1 dose, On 03/29/23 at 1945, STAT 1952 (Given - Provid er: Jassi Downs RN) documented in this encounter Additional Health Concerns Assessment Noted Time A fall risk assessment has been complete d for the patient 11/21/2020 2:30 PM EDT A Body Mass Index follow-up plan has been documented for the patient 03/26/2023 12:22 PM EST documented as of this encounter Care Teams Surface Water Manager Relationship Specialty Start Date End Date Citalli Marquez APRN [facility] [place] [address] PCP - General Family Medicine 03/26/23 10/19/23 documented as of this encounter
--- OUTSIDE RECORDS SUMMARY | 2024-02-03 15:14 | XMS_ITS | Encounter Summary ---
Author Organization [facility] Address [address] [place] [address] Care Team Providers Care Head Esthetician Name Role Phone JimmyCitlali lowe Gilberto ORELLANA Primary Care Provider [phone] Encounter Details Date Type Department Care Team (Latest Contact Info) Description 03/26/2023 Travel Social History Tobacco Use Types Packs/Day [...] slept in a assisted (including now)? 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-MID LEVEL CLINICIAN) to steady your nerves or to get [...] documented as of this encounter Care Teams Head Esthetician Relationship Specialty Start Date End Date Citlali Marquez, ESTEBAN [address] [place] [address] PCP - General Family Medicine 03/26/23 10/19/23 documented as of this encounter
--- OUTSIDE RECORDS SUMMARY | 2024-02-03 15:14 | XMS_ITS | Encounter Summary ---
Author Organization Healthcare Address [address] [place] [address] Care Team Providers Care Fourdrinier Wire Weaver Name Role Phone Pcp, No Primary Care Provider Unavailabl e Reason for Visit * Auth/Cert (Routine) Specialty Diagnoses / Procedures Referred By Contac t Referred To Contact Diagnoses Acute on chronic pancreatitis (CMS/HCC) Claudio Landry MD [address] [place] [address] Phone: tel: fax: [facility] [address] [place] [address] Phone: tel: Referral ID Status Reason Start Date Expiration Date Visits Re quested Visits Authorized [id number] 1 1 Encounter Details Date Type Department Care Team (Late st Contact Info) Description 03/20/2023 3:37 PM EST Anesthesia Event [facility] [address] [place] [address] Jassi Iverson MD [address] [place] [address] Rhea Wright CRNA [address] [place] [address] Anesthesia Record Procedure Summary Procedure Name Responsible Anesthesiologist Anesthesia Start Time Anesthesia Stop Time EGD Jassi Iverson MD 03/20/23 1537 1558 Events Date Time Event Comment 03/20/2023 1412 1537 An Start 1540 An Start Data 1542 In Room 1544 An Induction The patient was reevaluated immediately before moderate or deep sedation use and before anesthesia induction. 1544 Anesthesia Ready 1545 Proc Start 1550 Proc Fin 1553 Out of Room 1553 an stop data 1558 Handoff to Receiving I compl eted my handoff to the receiving clinician during which we: 1. Identified the patient 2. Identified the responsible provider 3. Reviewed the pertinent medical history 4. Discussed the surgical course 5. Reviewed intra-op anesthesia management and issues during anesthesia 6. Set expectations for post-procedure period 7. Allowed opportunity for questions and acknowledgement of understanding. 1558 An Stop Meds Name Total midazolam (Versed) injection 1 mg/mL 2 m g lidocaine PF (Xylocaine-MPF) 2% 100 mg propofol (Diprivan) infusion 10 mg/mL 12 1.32 mg propofol (Diprivan) injection 10 mg/mL 1 00 mg lactated Ringer's infusion 100 mL * Agents Name O2 N2O Inspired N2O * Blood No blood administrations on file. 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 Anesthesia Post Evaluation Patient location during evaluation: PACU Level of consciousness: sedated Airway patency: natural airway Cardiovascular status: acceptable Respiratory status: acceptable Hydration status: acceptable No notable events documented. * Anesthesia Preprocedure Evaluation - Jassi Iverson MD - 03/20/2023 2:01 PM EST Patient: Lila Mcnally Procedure Information Date/Time: 03/20/23 1410 Scheduled providers: Jassi Iverson MD; Rhea Wright CRNA; Shamika Pascal RN; John Canales MD Procedure: EGD Location: [facility] Relevant Problems Cardio (+) Hypertension GI (+) GERD (gastroesophageal reflux disease) (+) Obesity Anesthesia Evaluation No anesthesia staff entered. HPI Lila Mcnally is a 37 y.o. female who presents with Acute on chronic pancreatitis (CMS/HCC) now scheduled for EGD. 37 y.o. female with a PMH of fibromyalgia, anxiety, recurrent acute pancreatitis admitted with abdominal pain. ALLERGIES Allergies Allergen Reactions Compazine [Prochlorperazine] Other - please document in the comment field Dystonic rxn treated w/ diphenhydramine Droperidol Other - please document in the comment field Experienced an acute dystonic reaction treated with diphenhydramine Tramadol Rash and Dizziness Patient described previously experiencing panic attacks too. NPO STATUS AIRWAY HISTORY Past Medical History: Diagnosis Date Anxiety Arthritis Depression Fibromyalgia Gastric erosions 04/19/2021 GERD (gastroesophageal reflux disease) Hypertension Intentional overdose ([facility]) 12/20/2021 Nicotine dependence Obesity Pancreatitis MEDICATIONS Outpatient Medications Prior to Admission Medication Sig Dispense Refill Last Dose acetaminophen (Tylenol) 500 MG tablet Take 2 [...] times a day if needed for heartburn. ibuprofen 800 MG tablet Take 1 tablet (800 mg) by mouth every 6 (six) hours if needed for mild pain. Lidocaine (HM Lidocaine Patch) 4 % patch Apply 1 patch topically every 12 (twelve) hours. LORazepam (Ativan) 2 MG tablet Take 1 tablet (2 mg) by mouth 2 (two) times a day. MELATONIN PO Take 10 mg by mouth at night if needed (sleep). nicotine (Nicoderm CQ) 21 MG/24HR patch Place 1 patch on the skin 1 (one) time each day at the sametime. ondansetron ODT (Zofran-ODT) 4 MG disintegrating tablet Take 1 tablet (4 mg) by mouth every 8 (eight) hours if needed for nausea or vomiting. 30 tablet 0 pancrelipase, Cui-Alsn-Hpie, (Creon) 6000-00148 units capsule Take 1 capsule by mouth [...] by mouth 4 (four) times a day. naloxone (Kloxxado) 8 mg/0.1 mL nasal spray 1. Give 1 spray in nostril for no/slow breathing or cannot wake after opioid use 2. Call 911 3. Repeat in other nostril if symptoms continue 1 each 0 oxyCODONE (Oxy-IR) 5 MG immediate release capsule Take 2 capsules (10 mg) by mouth every 4 (four) hours if needed for severe pain. oxyCODONE (Roxicodone) 20 MG immediate release tablet Take 1 tablet (20 mg) by mouth every 6 (six) hours if needed (abdominal pain). 8 tablet 0 Current Outpatient Medications Medication Instructions acetaminophen (TYLENOL) 1,000 mg, Oral, Every 6 hours PRN cholecalciferol (VITAMIN D-3) 2,000 Units, Oral, Daily cyanocobalamin (VITAMIN B-12) 1,000 mcg, Oral, Daily DULoxetine (CYMBALTA) 60 mg, Oral, Daily, Do not crush or chew. famotidine (PEPCID) 20 mg, Oral, 2 times daily PRN ibuprofen 800 mg, Oral, Every 6 hours PRN Kloxxado 8 mg, Nasal, As needed Lidocaine (HM Lidocaine Patch) 4 % patch 1 patch, Apply externally, Every 12 hours LORazepam (ATIVAN) 2 mg, Oral, 2 times daily MELATONIN PO 10 mg, Oral, Nightly PRN nicotine (Nicoderm CQ) 21 MG/24HR patch 1 patch, Transdermal, Every 24 hours ondansetron ODT (ZOFRAN-ODT) 4 mg, Oral, Every 8 hours PRN oxyCODONE (OXY-IR) 10 mg, Oral, Every 4 hours PRN oxyCODONE (ROXICODONE) 20 mg, Oral, Every 6 hours PRN pancrelipase, Lfp-Uada-Awss, (Creon) [id number] units capsule 1 capsule, Oral, 3 times daily with meals pantoprazole (PROTONIX) 40 mg, Oral, Daily, Do not crush, chew, or split. pregabalin (LYRICA) 300 mg, Oral, 2 times daily promethazine (PHENERGAN) 25 mg, Rectal, Every 6 hours PRN promethazine (PHENERGAN) 25 mg, Oral, Every 6 hours PRN sucralfate (CARAFATE) 1 g, Oral, 4 times daily Scheduled acetaminophen, 650 mg, Oral, q6h INO DULoxetine, 60 mg, Oral, Daily enoxaparin, 40 mg, Subcutaneous, Daily nicotine, 1 patch, Transdermal, Daily pancrelipase (Njc-Pbvl-Ptea), 1 capsule, Oral, TID with meals pantoprazole, 40 mg, Oral, Daily polyethylene glycol, 17 g, Oral, Daily pregabalin, 300 mg, Oral, BID senna, 2 tablet, Oral, Nightly PRNs PRN medications: cloNIDine, dicyclomine, famotidine, HYDROmorphone, hydrOXYzine pamoate, LORazepam,melatonin, ondansetron ODT, oxyCODONE, simethicone, [COMPLETED] Insert peripheral IV AND [COMPLETED] Saline lock IV AND sodium chloride AND sodium chloride, traZODone SURGICAL HX: Past Surgical History: Procedure Laterality Date CHOLECYSTECTOMY ERCP ESOPHAGOGASTRODUODENOSCOPY HAND SURGERY Right FUNCTIONAL CAPACITY SOCIAL HX: Social History Tobacco Use Smoking status: Every Day Packs/day: [...] Comment: a few times a month 03-20-23 OBJECTIVE DATA LABS Type and Screen No results found for: ABO COVID SARS CoV-2/COVID-19 RNA PCR Result Date Value Ref Range Status 09/19/2022 Not Detected Not Detected Final Lab Results Component Value Date WBC 7.79 03/18/2023 HGB 11.3 03/18/2023 HCT 34.7 03/18/2023 MCV 81 03/18/2023 PLT 285 03/18/2023 Lab Results Component Value Date GLUCOSE 106 (H) 03/18/2023 CALCIUM 9.5 03/18/2023 NA 140 03/18/2023 K 4.3 03/18/2023 CO2 24 03/18/2023 CL 106 03/18/2023 BUN 10 03/18/2023 CREATININE 0.51 (L) 03/18/2023 Diabetic Labs Lab Results Component Value Date HGBA1C 5.2 11/21/2022 Lab Results Component Value Date HGBA1C 5.2 11/21/2022 PGLU 97 12/30/2022 ABG No results found for: PHART , BAD7CVB , PO2ART , SO2ART , BEART , UMN7QHG , HCTART , SODIUMART , POTASSIUMART , POCTCL , POCGLU , IONCALART , LACTATE Lab Results Component Value Date HCTSYR 35.9 10/10/2022 NA 140 03/18/2023 KSYR 3.8 10/10/2022 CLSYR 110 (H) 10/10/2022 GLUSYR 78 10/10/2022 CAION 4.9 10/10/2022 EKG Encounter Date: 03/18/23 ECG Adult Result Value EKG DIAGNOSIS CLASS Abnormal Ventricular Rate 67 Atrial Rate 67 NH Interval 130 QRSD Interval 82 QT Interval 400 QTC Interval 422 P [place] 17 R [place] 18 T Wave [place] 12 Diagnosis Normal sinus rhythm Diagnosis with sinus arrhythmia Diagnosis Cannot rule out Diagnosis Anterior infarct Diagnosis , age undetermined Diagnosis Abnormal ECG Diagnosis Confirmed by Ankur Muniz ([id number]) on 03/19/2023 10:57:10 AM *Note: Due to a large number of results and/or encounters for the requested time period, some results have not been displayed. A complete set of results can be found in Results Review. 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 Additional Equipment Requests documented in this encounter Plan of Treatment Not on file documented as of this encounter Visit Diagnoses Not on filedocumented in this encounter Administered Medications Inactive Administered Medications - up to 3 most recent administrations Medication Order MAR Action Action Date Dose Rate Site lactated Ringer's infusion Intravenous, Continuous PRN, Starting on Thu03/20/23 at 1537, Until Thu03/20/23 at 1558, Routine New Bag 03/20/2023 3:37 PM EST lidocaine PF (Xylocaine) 2 % injection Intravenous, As needed, Starting on Thu03/20/23 at 1544, Until Thu03/20/23 at 1558, Routine, Anesthesia Intraprocedure Given 03/20/2023 3:44 PM EST 100 mg midazolam (Versed) injection Intravenous, As needed, Starting on Thu03/20/23 at 1418, Until Thu03/20/23 at 1558, Routine, Anesthesia Intraprocedure Given 03/20/2023 2:18 PM EST 2 mg propofol (Diprivan) infusion 10 mg/mL Intravenous, Continuous PRN, Starting on Thu03/20/23 at 1544, Until Thu03/20/23 at 1558, Routine New Bag 03/20/2023 3:44 PM EST 200 mcg/kg/min 121.32 mL/hr propofol (Diprivan) injection Intravenous, As needed, Starting on Thu03/20/23 at 1544, Until Thu03/20/23 at 1558, Routine, Anesthesia Intraprocedure Given 03/20/2023 3:47 PM EST 20 mg Given 03/20/2023 3:44 PM EST 80 mg documented in this encounter Additional Health Concerns Assessment Noted Time A fall risk assessment has been complete d for the patient 11/21/2020 2:30 PM EDT A Body Mass Index follow-up plan has been documented for the patient 03/25/2023 10:12 AM EST documented as of this encounter Care Teams Fourdrinier Wire Weaver Relationship Specialty Start Date End Date Pcp, [place] [address] PCP - General Family Medicine 03/18/23 03/25/23 documented as of this encounter
--- OUTSIDE RECORDS SUMMARY | 2024-02-03 15:14 | XMS_ITS | Encounter Summary ---
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
--- OUTSIDE RECORDS SUMMARY | 2024-02-03 15:14 | XMS_ITS | Encounter Summary ---
Author Organization Healthcare Address [address] [place] [address] Care Team Providers Care Computer Engineering Technician Name Role Phone Pcp, No Primary Care Provider Unavailabl e Reason for Referral * Consultation (Routine) - Authorized Specialty Diagnoses / Procedures Referred By Susy t Referred To Contact Gastroenterology Diagnoses Acute on chronic pancreatitis (CMS/HCC) Claudio Landry MD [address] [place] [phone] Phone: tel: fax: Referral ID Status Reason Start Date Expiration Date Visits Requested Visits Authorized [id number] Authorized Specialty Services Required 03/21/2023 09/19/2024 1 1 Reason for Visit * Reason Comments Abdominal Pain * Auth/Cert (Routine) Specialty Diagnoses / Procedures Referred By Susy t Referred To Contact Diagnoses Acute on chronic pancreatitis (CMS/HCC) Claudio Landry MD [address] [place] [phone] Phone: tel: fax: [facility] S Inpatient [address] [place] [address] Phone: tel: Referral ID Status Reason Start Date Expiration Date Visits Re quested Visits Authorized [id number] 1 1 Encounter Details Date Type Department Care Team ([facility] st Contact Info) Description 03/18/2023 8:39 AM EST - 03/25/2023 11:41 AM EST Emergency P[facility] S Inpatient [address] [place] [address] Claudio Landry MD [address] [place] [address] Walt Levy MD [address] [place] [address] Chronic upper abdominal pain (Primary Dx); Nausea; Acute on chronic pancreatitis (CMS/HCC) Discharge Disposition: Home or Self Care [...] slept in a half-way (including now)? 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-DENTAL LABORATORY ASSISTANT) to steady your nerves or to [...] Sign Reading Time Taken Comments Blood Pressure 98/63 03/25/2023 7:35 AM EST Pulse 109 03/25/2023 7:35 AM EST Temperature 36.7 ??C (98.1 ??F) 03/25/2023 7:35 AM ES T Respiratory Rate 16 03/25/2023 5:33 AM EST Oxygen Saturation 97% 03/25/2023 7:35 AM EST Inhaled Oxygen Concentration - - Weight 232 kg (511 lb 7.5 oz) 03/25/2023 5:53 AM EST Height 165.1 cm (5' 5 ) 03/19/2023 8:00 AM EST Body Mass Index 85.11 03/19/2023 8:00 AM EST documented in this encounter Medications [...] 5 doses. 10 tablet 03/25/2023 4 pancrelipase, Qfs-Dvss-Xgij, (Creon) [id number] units capsule Take 1 capsule by mouth [...] encounter Miscellaneous Notes * Progress Notes - Jarett Loya - 03/25/2023 11:41 AM EST Case Management Discharge Note Rosibel Gayle 37 y.o. female CSN: [id number] Admission: 03/18/2023 8:39 AM Primary Problem: Acute on chronic pancreatitis (CMS/HCC) Pt discharge home with no CM needs. Jarett Loya * Nursing Note - Rhea Bo LPN - 03/25/2023 10:26 AM EST Patient being discharged home with mother. Pt has no IV to remove. One medication delivered to bedside, others to be picked up at [place]. Pt is aware she needs to pick them up, mother confirms going to transport her there to pick them up. Discharge paper work and education given. * Discharge Summary - Michelle Munoz MD - 03/25/2023 8:24 AM EST Images from the original note were not included. Hospitalization Admit Date/Time: 03/18/2023 8:39 AM Admitting Attending: Claudio Landry Discharge Date: 03/25/23 Discharge Attending Physician: Walt Levy MD PCP name and Address: Pcp, [place] [address] Referring provider name and address: No referring provider defined for this encounter. Chief Concern, Brief History of Present Illness, and Hospital Course Rosibel Gayle is a 37 y.o. female with history of anxiety, fibromyalgia, depression, GERD, HTN, nicotine dependence, obesity and alcohol related pancreatitis, and chronic pain recently discharged from her pain clinic presenting with intractable epigastric abdominal pain, nausea and vomiting. Edita ent has been evaluated in the ED multiple times for similar complaints including 03/15/23, 03/14/23, 03/10/23, 03/08/23, 03/07/23, 03/03/23, 03/01/23, 02/23/23, 02/22/23, 02/21/23, 02/20/23, 02/18/23. During 02/20/23 hospitalization, she was to follow up with [facility] to evaluate for celiac plexus block, however per chart review, GI clinic was unable to reach the patient despite multiple telephoneattempts, per patient, she had an appointment on Thursday that she missed 2/2 snow. On arrival to theED, patient tachycardic to 108, BP 137/90, afebrile and saturating appropriately on room air. Labs,including lactate and lipase, were unremarkable, no imaging performed. Hospital medicine was consulted for admission and further management of intractable pain. GI was consulted for celiac plexus block and patient not a candidate given no imaging evidence of chronic pancreatitis. She underwent EGD 03/20 which revealed candidal esophagitis and gastroparesis. She was started on 14d course of fluconazole and metoclopramide PRN. Patient's pain was managed with tylenol, GI cocktail, and narcotics. Patient was on PO narcotics on day of discharge. On 03/25/23, vitals were stable, pain controlled, and patient felt safe for discharge. The patient was counseled on lifestyle modifications, medication compliance, and had close follow-up. Reasons to return to clinic or ED were discussed and he demonstrated understanding. Detailed outline of active i npatient conditions listed below. Patient to follow up with Family medicine on 03/26/23 at 11AM to establish care as she was discharged from pain clinic. Acute on chronic abdominal pain, nausea, vomiting Gastroparesis - Etiology: Flare up of acute on chronic pain vs functional pain/cyclic vomiting. Pt declined CT. - 2 weeks of intense epigastric and left upper quadrant abdominal pain with intractable nausea, vomiting and diarrhea. Multiple ED visits and hospital stays for the last 2 years for the same reason. - Lipase 35 - Based on chart review, recurrent and chronic pain could be due to chronic pancreatitis. But for this year, multiple CTs did not show any signs of inflammation and there are many documentation aboutfunctional pain and maladaptive behavior. - 03/14/23 CTAP: Borderline dilatation of the jejunal loops up to 4.1 cm without transition likely ileus. Mild thickening of the jejunal loops could be nonspecific or secondary to inflammatory process. - Discharged from pain clinic 03/27 UDS with THC - UDS on admission +benzo, +barbituate, +oxycodone, +cannabinoid - EGD 03/21 revealed candidal esophagitis, abnormal mucosa, and retained food c/f gastroparesis PLAN - Pain control: tylenol PRN, oxy 20mg q8h PRN (1.5d supply as patient has PCP appt tomorrow), GI cocktail, famotidine, ibuprofen, simethicone and bentyl PRN - Zofran and metoclopramide for treatment of gastroparesis and nausea - Follow up with GI outpatient - Encouraged cessation of cigarette smoking and marijuana smoking. - Continue home pancrelipase TID with meals Lien Esophagitis - Appreciated on 03/21 EGD - Plan for 14d course of fluconazole, started 03/20 - HIV nonreactive 03/07/23, no history of immunosuppression Surgeries and Procedures Medication List . acetaminophen 500 MG tablet [...] times a day if needed for heartburn. HM Lidocaine Patch 4 % patch Generic drug: Lidocaine Apply 1 patch topically every 12 (twelve) hours. ibuprofen 800 MG tablet Take 1 tablet [...] mouth at night if needed (sleep). nicotine 21 MG/24HR patch Commonly known as: Nicoderm CQ Place 1 patch on the skin 1 (one) time each day at the same time. Ask about: Which instructions should I use? ondansetron ODT 4 MG disintegrating tablet Commonly known as: Zofran-ODT Take 1 tablet (4 mg) by mouth every 8 (eight) hours if needed for nausea or vomiting. * oxyCODONE 5 MG immediate release capsule Commonly known as: Oxy-IR Take 2 capsules (10 mg) by mouth every 4 (four) hours if needed for severe pain. * oxyCODONE 20 MG immediate release tablet Commonly known as: Roxicodone Take 1 tablet (20 mg) by mouth every 6 (six) hours if needed (abdominal pain). pancrelipase (Bjz-Wsrw-Rqtu) [id number] units capsule Commonly known as: Creon Take [...] times a day. * promethazine 25 MG suppository Commonly known as: Phenergan Insert 1 suppository (25 mg) into the rectum every 6 (six) hours if needed for nausea or vomiting. Ask about: Which instructions should I use? * promethazine 25 MG tablet Commonly known as: Phenergan Take 1 tablet (25 mg) by mouth every 6 (six) hours if needed for nausea or vomiting. Ask about: Which instructions should I use? sucralfate 1 GM/10ML suspension Commonly known as: Carafate Take 10 mL (1 g) by mouth 4 (four) times a day. * This list has 4 medication(s) that are the same as other medications prescribed for you. Read thedirections carefully, and ask your doctor or other care provider to review them with you. Discharge Diagnosis Medical Problems Active and Resolved Hospital Problems Hospital * (Principal) Acute on chronic pancreatitis (CMS/HCC) Class III obesity with body mass index (BMI) of 40.0 or higher (CMS/HCC) Post Discharge Instructions Follow up with Family Medicine in Clinic tomorrow, 03/26/23 at 11AM. Please arrive at 10:45 with ALL medication bottles, photo ID and insurance card Outpatient Follow-Up Future Appointments Date Time Provider Department Center 03/26/2023 11:00 AM Citlali Marquez APRN [id number] [place] 05/06/2023 11:20 AM Kimi Bonner, [facility] [place] 06/18/2023 1:00 PM Svetlana Mabry, [facility] [place] [facility] Test Results Pending At Discharge Pending Labs Order Current Status Barbiturates Confirm Urine LCMSMS In process Benzodiazepine Confirm Urine In process OXYCODONE CONFIRMATION,URINE In process THC Urine Confirm LCMSMS In process Pertinent Physical Exam At Time of Discharge Physical Exam Constitutional: General: She is not in acute distress. Appearance: Normal appearance. She is obese. She is not ill-appearing or diaphoretic. HENT: Head: Normocephalic and atraumatic. Eyes: Conjunctiva/sclera: Conjunctivae normal. Cardiovascular: Rate and Rhythm: Normal rate and regular rhythm. Heart sounds: Normal heart sounds. No murmur heard. Pulmonary: Effort: Pulmonary effort is normal. No respiratory distress. Breath sounds: Normal breath sounds. Abdominal: General: Bowel sounds are normal. There is no distension. Palpations: There is no mass. Tenderness: There is abdominal tenderness. There is no guarding or rebound. Hernia: No hernia is present. Musculoskeletal: Right lower leg: No edema. Left lower leg: No edema. Skin: General: Skin is warm. Coloration: Skin is not jaundiced. Findings: No bruising, erythema or rash. Neurological: General: No focal deficit present. Mental Status: She is alert. Psychiatric: Mood and Affect: Mood normal. Discharge Disposition/Condition Disposition: Home Condition: Stable (s/sx potential problems absent or manageable) I spent >30 minutes of patient care and instruction time in preparation for this discharge. Cosigned by Walt Levy MD at 03/25/2023 2:37 PM EST Associated attestation - Walt Levy MD - 03/25/2023 2:37 PM EST I saw and evaluated the patient with the resident/fellow. I discussed the case with the resident/fellow and agree with the findings and plan as documented. * Progress Notes - Napoleon Shaw - 03/24/2023 4:43 PM EST Massage Therapy Note Visit Type: Inpatient: Initial visit. Asked by a member of the music therapy team to consult for massage for the patient, to assist with pain and tension reduction. Patient states: Pain is high, and medication only does so much. Pain and soreness/tension primarilyresides in the left side of her upper body (gesturing to left scapular region) and across her lowerback. Requests focused massage to these areas. Asked to be given a hospital gown to wear during treatment. [id number] Session Information: IM Order: No Consult Requested By: Other Therapist Reason for IM Consult: Pain and tenderness Contact Location: Inpatient Hospital Room Type of Contact: Initial Visit Contact Length/ Time: 20 minutes Others Present: No Patient Position: Lying in hospital bed (prone) Intake Questions: Status Upon Arrival: Lying in hospital bed. Oriented/Alert. Self-Report: Musculoskeletal Areas Addressed: Trapezius, rhomboids, infraspinatus, levator scapularis, upper erector spinae, upper latissimus dorsi, lower erector spinae, quadratus lumborum, gluteus medius. Modalities used: Myofascial release, triggerpoint technique, palm glides Pressure(s) Used: PR3, PR4 (Using the Willson Pressure Scale) Pre-Massage Pain Score: 5 Post-Massage Pain Score: 2 Observations: Increased ease of movement for addressed, with reduced pain while moving or sitting still. Patient expressed gratitude, and confirmed soreness and pain are less than pre-massage levels. Will follow-up with patient in two days, unless discharged. IM Date of Service: 03/24/23 Follow-up Date of Service: 03/26/23 LLUVIA Serrato, LMT * Care Plan - Abigail Lorenzana RN - 03/24/2023 10:21 AM EST Problem: Pain Acute Goal: Optimal Pain Control and Function Outcome: Ongoing, Progressing Intervention: Develop Pain Management Plan Flowsheets (Taken 03/24/2023 1019) Pain Management Interventions: medication (see MAR) emotional support Problem: Nausea and Vomiting Goal: Nausea and Vomiting Relief Outcome: Ongoing, Progressing Intervention: Prevent and Manage Nausea and Vomiting Flowsheets (Taken 03/24/2023 1019) Environmental Support: calm environment promoted * Care Plan - Chelsie Kurtz RN - 03/24/2023 10:09 AM EST Problem: Adult Inpatient Plan of Care Goal: Optimal Comfort and Wellbeing Outcome: Ongoing, Progressing * Progress Notes - Michelle Munoz MD - 03/24/2023 8:09 AM EST Subjective NAEON. Patient resting comfortably in bed on exam, in no acute distress. Requesting a cheeseburger,explained to patient importance of low fat diet, states she eats a low fat diet at home. Plan to discontinue IV pain medications and space out oxycodone for discharge tomorrow. Patient has 5 other PRNs on board, discussed importance of taking those for multimodal pain regimen. Review of Systems Constitutional: Negative for fever. HENT: Negative for sore throat. Eyes: Negative for visual disturbance. Respiratory: Negative for cough and shortness of breath. Cardiovascular: Negative for chest pain and palpitations. Gastrointestinal: Positive for abdominal pain and nausea. Negative for abdominal distention, constipation, diarrhea and vomiting. Endocrine: Negative for polyuria. Neurological: Negative for syncope, light-headedness and headaches. Objective Physical Exam Constitutional: General: She is not in acute distress. Appearance: Normal appearance. She is not ill-appearing or diaphoretic. HENT: Head: Normocephalic and atraumatic. Eyes: Conjunctiva/sclera: Conjunctivae normal. Cardiovascular: Rate and Rhythm: Normal rate and regular rhythm. Heart sounds: Normal heart sounds. No murmur heard. Pulmonary: Effort: Pulmonary effort is normal. No respiratory distress. Breath sounds: Normal breath sounds. Abdominal: General: Bowel sounds are normal. There is no distension. Palpations: There is no mass. Tenderness: There is abdominal tenderness. There is no guarding or rebound. Hernia: No hernia is present. Musculoskeletal: General: No deformity or signs of injury. Right lower leg: No edema. Left lower leg: No edema. Skin: General: Skin is warm. Coloration: Skin is not jaundiced. Findings: No bruising, erythema or rash. Neurological: General: No focal deficit present. Mental Status: She is alert. Psychiatric: Mood and Affect: Mood normal. Last Recorded Vitals Blood pressure 124/84, pulse 104, temperature 36.8 ??C (98.2 ??F), temperature source Oral, resp. rate 16, height 1.651 m (5' 5 ), weight 101 kg (222 lb 12.8 oz), SpO2 94 %, not currently . Assessment/Plan Principal Problem: Acute on chronic pancreatitis (CMS/HCC) Rosibel Gayle is a 37 y.o. year-old female who has a past medical history of Anxiety, Arthritis,Depression, Fibromyalgia, Gastric erosions, GERD (gastroesophageal reflux disease), Hypertension, Nicotine dependence, Obesity, and alcoholic Pancreatitis who presents to [facility] ED due to left upper quadrant abdominal pain with nausea, vomiting, and diarrhea. Acute on chronic pancreatitis with intractable pain, nausea, vomiting and diarrhea Gastroparesis Chronic Pain - Etiology: Flare up of acute on chronic pancreatitis pain vs functional pain/cyclic vomiting. Pt declined CT. - 2 weeks of intense epigastric and left upper quadrant abdominal pain with intractable nausea, vomiting and diarrhea. Multiple ED visits and hospital stays for the last 2 years for the same reason. - Lipase 35 - Based on chart review, recurrent and chronic pain could be due to chronic pancreatitis. But for this year, multiple CTs did not show any signs of inflammation and there are many documentation aboutfunctional pain and maladaptive behavior. - 03/14/23 CTAP: Borderline dilatation of the jejunal loops up to 4.1 cm without transition likely ileus. Mild thickening of the jejunal loops could be nonspecific or secondary to inflammatory process. - Was to follow up with pancreas clinic to evaluate for celiac plexus block by endoscopy (per [facility]) however missed appt. - Discharged from pain clinic /2 UDS with THC - UDS on admission +benzo, +barbituate, +oxycodone, +cannabinoid - Plan to establish care with family medicine, appt next month - EGD 1/27 revealed candidal esophagitis, abnormal mucosa, and retained food c/f gastroparesis PLAN - Pain control: tylenol PRN, oxy 20mg q8h PRN, GI cocktail, famotidine, ibuprofen and bentyl PRN - Zofran and metoclopramide for treatment of gastroparesis and nausea - Follow up with GI outpatient -Encouraged cessation of cigarette smoking and marijuana smoking. - Continue home pancrelipase TID with meals Lien Esophagitis - Appreciated on 03/21 EGD - Plan for 14d course of fluconazole, started 03/20 - HIV nonreactive 03/07/23, no history of immunosuppression Chronic Medical Conditions: Fibromyalgia - continue home lyrica Anxiety and Depression: continue home duloxetine and PRN ativan GERD- Continue home PPI Insomnia- Continue melatonin HS for sleep Nicotine Dependence - NRT Marijuana use - Encourage cessation Obesity - BMI: 38.27, complicates all aspects of care Venous thromboembolism prophylaxis Patient on enoxaparin Michelle Munoz MD Internal Medicine PGY-3 Pager# [phone] Cosigned by Walt Levy MD at 03/24/2023 1:49 PM EST Associated attestation - Walt Levy MD - 03/24/2023 1:49 PM EST I saw and evaluated the patient with the resident/fellow. I discussed the case with the resident/fellow and agree with the findings and plan as documented. * Care Plan - Francis Govea RN - 03/23/2023 4:46 PM EST Problem: Adult Inpatient Plan of Care Goal: Plan of Care Review Outcome: Ongoing, Progressing Goal: Patient-Specific Goal (Individualized) Outcome: Ongoing, Progressing Goal: Absence of Hospital-Acquired Illness or Injury Outcome: Ongoing, Progressing Goal: Optimal Comfort and Wellbeing Outcome: Ongoing, Progressing Goal: Readiness for Transition of Care Outcome: Ongoing, Progressing Problem: Fall Injury Risk Goal: Absence of Fall and Fall-Related Injury Outcome: Ongoing, Progressing Problem: Pain Acute Goal: Optimal Pain Control and Function Outcome: Ongoing, Progressing Problem: Nausea and Vomiting Goal: Nausea and Vomiting Relief Outcome: Ongoing, Progressing * Progress Notes - Jarett Loya - 03/23/2023 2:15 PM EST Case Management Adult Progress Note Rosibel Gayle 37 y.o. female CSN: [id number] Admission: 03/18/2023 8:39 AM Primary Problem: Acute on chronic pancreatitis (CMS/HCC) Anticipated Discharge Date: 2 Days Has Discharge Plans Changed? No Medicare Second Notice: Housing Circumstances: Housing Circumstances Action Taken: Additional Comments Pt discussed today with medicine team. Per team, pt is not medically ready at this time for discharge today, but should be in the next few days. SW will continue to follow as appropriate. Jarett Loya * Progress Notes - Michelle Munoz MD - 03/23/2023 11:29 AM EST Subjective NAEON. Patient resting comfortably in bed on exam, in no acute distress. States her pain regimen isworking and is not ready to space out frequency or take off ketorolac. Having regular bowel movements. Review of Systems Constitutional: Negative for fever. HENT: Negative for sore throat. Eyes: Negative for visual disturbance. Respiratory: Negative for cough and shortness of breath. Cardiovascular: Negative for chest pain and palpitations. Gastrointestinal: Positive for abdominal pain and nausea. Negative for abdominal distention, constipation, diarrhea and vomiting. Endocrine: Negative for polyuria. Neurological: Negative for syncope, light-headedness and headaches. Objective Physical Exam Constitutional: General: She is not in acute distress. Appearance: Normal appearance. She is not ill-appearing or diaphoretic. HENT: Head: Normocephalic and atraumatic. Eyes: Conjunctiva/sclera: Conjunctivae normal. Cardiovascular: Rate and Rhythm: Normal rate and regular rhythm. Heart sounds: Normal heart sounds. No murmur heard. Pulmonary: Effort: Pulmonary effort is normal. No respiratory distress. Breath sounds: Normal breath sounds. Abdominal: General: Bowel sounds are normal. There is no distension. Palpations: There is no mass. Tenderness: There is abdominal tenderness. There is no guarding or rebound. Hernia: No hernia is present. Musculoskeletal: General: No deformity or signs of injury. Right lower leg: No edema. Left lower leg: No edema. Skin: General: Skin is warm. Coloration: Skin is not jaundiced. Findings: No bruising, erythema or rash. Neurological: General: No focal deficit present. Mental Status: She is alert. Psychiatric: Mood and Affect: Mood normal. Last Recorded Vitals Blood pressure 114/79, pulse 73, temperature 36.6 ??C (97.8 ??F), temperature source Oral, resp. rate 18, height 1.651 m (5' 5 ), weight 101 kg (222 lb 12.8 oz), SpO2 99 %, not currently . Assessment/Plan Principal Problem: Acute on chronic pancreatitis ([facility]) Rosibel Gayle is a 37 y.o. year-old female who has a past medical history of Anxiety, Arthritis,Depression, Fibromyalgia, Gastric erosions, GERD (gastroesophageal reflux disease), Hypertension, Nicotine dependence, Obesity, and alcoholic Pancreatitis who presents to [facility] ED due to left upper quadrant abdominal pain with nausea, vomiting, and diarrhea. Acute on chronic pancreatitis with intractable pain, nausea, vomiting and diarrhea Gastroparesis Chronic Pain - Etiology: Flare up of acute on chronic pancreatitis pain vs functional pain/cyclic vomiting. Pt declined CT. - 2 weeks of intense epigastric and left upper quadrant abdominal pain with intractable nausea, vomiting and diarrhea. Multiple ED visits and hospital stays for the last 2 years for the same reason. - Lipase 35 - Based on chart review, recurrent and chronic pain could be due to chronic pancreatitis. But for this year, multiple CTs did not show any signs of inflammation and there are many documentation aboutfunctional pain and maladaptive behavior. - 03/14/23 CTAP: Borderline dilatation of the jejunal loops up to 4.1 cm without transition likely ileus. Mild thickening of the jejunal loops could be nonspecific or secondary to inflammatory process. - Was to follow up with pancreas clinic to evaluate for celiac plexus block by endoscopy ([facility]) however missed appt. - Discharged from pain clinic 2/2 UDS with THC - UDS on admission +benzo, +barbituate, +oxycodone, +cannabinoid - Plan to establish care with [facility] medicine, appt next month - EGD 03/21 revealed candidal esophagitis, abnormal mucosa, and retained food c/f gastroparesis PLAN - Pain control: tylenol PRN, oxy 20mg q6h PRN, ketorolac PRN, GI cocktail PRN - Zofran for nausea, adding metoclopramide for treatment of gastroparesis and nausea - Follow up with GI outpatient -Encouraged cessation of cigarette smoking and marijuana smoking. - Continue home pancrelipase TID with meals Lien Esophagitis - Appreciated on 03/21 EGD - Plan for 14d course of fluconazole, started 03/20 - HIV nonreactive 03/07/23, no history of immunosuppression Chronic Medical Conditions: Fibromyalgia - continue home lyrica Anxiety and Depression: continue home duloxetine and PRN ativan GERD- Continue home PPI Insomnia- Continue melatonin HS for sleep Nicotine Dependence - NRT Marijuana use - Encourage cessation Obesity - BMI: 38.27, complicates all aspects of care Venous thromboembolism prophylaxis Patient on enoxaparin Michelle Munoz MD Internal Medicine PGY-3 Pager# [phone] Cosigned by Claudio Landry MD at 03/23/2023 4:28 PM EST Associated attestation - Claudio Landry MD - 03/23/2023 4:28 PM EST I saw and evaluated the patient with the resident/fellow. I discussed the case with the resident/fellow and agree with the findings and plan as documented. Acute on Chronic Abdominal Pain Hx of recurrent acute pancreatitis N/V/D Candidal Esophagitis - Advance diet as able. - Pain regimen, titrating down as able. - Anti-emetics ordered - Continue home pancrelipase - EGD showed abnormal mucosa in the middle and lower third of the esophagus. GI recommended treatment with Reglan and Fluconazole, 14 day course. * Care Plan - Anna Spencer RN - 03/22/2023 6:29 PM EST Problem: Adult Inpatient Plan of Care Goal: Plan of Care Review Outcome: Ongoing, Progressing Goal: Patient-Specific Goal (Individualized) Outcome: Ongoing, Progressing Goal: Absence of Hospital-Acquired Illness or Injury Outcome: Ongoing, Progressing Goal: Optimal Comfort and Wellbeing Outcome: Ongoing, Progressing Goal: Readiness for Transition of Care Outcome: Ongoing, Progressing * Progress Notes - Claudio Landry MD - 03/22/2023 12:22 PM EST Subjective NAEON. Patient resting comfortably in bed on exam, in no acute distress. Continues to ask for more pain medication. States that her pain is not controlled but was asleep when we entered the room. Patient was even dozing off during our conversation. No new complaints or concerns. Review of Systems Constitutional: Negative for fever. HENT: Negative for sore throat. Eyes: Negative for visual disturbance. Respiratory: Negative for cough and shortness of breath. Cardiovascular: Negative for chest pain and palpitations. Gastrointestinal: Positive for abdominal pain and nausea. Negative for abdominal distention, constipation, diarrhea and vomiting. Endocrine: Negative for polyuria. Neurological: Negative for syncope, light-headedness and headaches. Objective Physical Exam Constitutional: General: She is not in acute distress. Appearance: Normal appearance. She is not ill-appearing or diaphoretic. HENT: Head: Normocephalic and atraumatic. Eyes: Conjunctiva/sclera: Conjunctivae normal. Cardiovascular: Rate and Rhythm: Normal rate and regular rhythm. Heart sounds: Normal heart sounds. No murmur heard. Pulmonary: Effort: Pulmonary effort is normal. No respiratory distress. Breath sounds: Normal breath sounds. Abdominal: General: Bowel sounds are normal. There is no distension. Palpations: There is no mass. Tenderness: There is abdominal tenderness. There is no guarding or rebound. Hernia: No hernia is present. Musculoskeletal: General: No deformity or signs of injury. Right lower leg: No edema. Left lower leg: No edema. Skin: General: Skin is warm. Coloration: Skin is not jaundiced. Findings: No bruising, erythema or rash. Neurological: General: No focal deficit present. Mental Status: She is alert. Psychiatric: Mood and Affect: Mood normal. Last Recorded Vitals Blood pressure 136/87, pulse 81, temperature 36.7 ??C (98 ??F), resp. rate 16, height 1.651 m (5' 5 ), weight 101 kg (222 lb 12.8 oz), SpO2 97 %, not currently . Assessment/Plan Principal Problem: Acute on chronic pancreatitis ([facility]) Rosibel Gayle is a 37 y.o. year-old female who has a past medical history of Anxiety, Arthritis,Depression, Fibromyalgia, Gastric erosions, GERD (gastroesophageal reflux disease), Hypertension, Nicotine dependence, Obesity, and alcoholic Pancreatitis who presents to [facility] ED due to left upper quadrant abdominal pain with nausea, vomiting, and diarrhea. Acute on chronic pancreatitis with intractable pain, nausea, vomiting and diarrhea Gastroparesis Chronic Pain - Etiology: Flare up of acute on chronic pancreatitis pain vs functional pain/cyclic vomiting. Pt declined CT. - 2 weeks of intense epigastric and left upper quadrant abdominal pain with intractable nausea, vomiting and diarrhea. Multiple ED visits and hospital stays for the last 2 years for the same reason. - Lipase 35 - Based on chart review, recurrent and chronic pain could be due to chronic pancreatitis. But for this year, multiple CTs did not show any signs of inflammation and there are many documentation aboutfunctional pain and maladaptive behavior. - 03/14/23 CTAP: Borderline dilatation of the jejunal loops up to 4.1 cm without transition likely ileus. Mild thickening of the jejunal loops could be nonspecific or secondary to inflammatory process. - Was to follow up with pancreas clinic to evaluate for celiac plexus block by endoscopy (per [facility]) however missed appt. 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 Multiple providers have documented in past opiate abuse and seeking behavior and to avoid dilaudid. - Adding GI cocktail and ibuprofen PRN for additional relief - Plan to DC on 3 days medications. - Follow up with GI outpatient - Encouraged cessation of cigarette smoking and marijuana smoking. - Continue home pancrelipase TID with meals Lien Esophagitis - Appreciated on 03/21 EGD - Plan for 14d course of fluconazole, started 03/20 - HIV nonreactive 03/07/23, no history of immunosuppression Chronic Medical Conditions: Fibromyalgia - continue home lyrica Anxiety and Depression: continue home duloxetine and PRN ativan GERD- Continue home PPI Insomnia- Continue melatonin HS for sleep Nicotine Dependence - NRT Marijuana use - Encourage cessation Obesity - BMI: 38.27, complicates all aspects of care Venous thromboembolism prophylaxis Patient on enoxaparin * Hospital Course - Michelle Munoz MD - 03/21/2023 1:09 PM EST Rosibel Gayle is a 37 y.o. female with history of anxiety, fibromyalgia, depression, GERD, HTN, nicotine dependence, obesity and alcohol related pancreatitis, and chronic pain recently discharged from her pain clinic presenting with intractable epigastric abdominal pain, nausea and vomiting. Edita blum has been evaluated in the ED multiple times for similar complaints including 03/15/23, 03/14/23, 03/10/23, 03/08/23, 03/07/23, 03/03/23, 03/01/23, 02/23/23, 02/22/23, 02/21/23, 02/20/23, 02/18/23. During 02/20/23 hospitalization, she was to follow up with [facility] clinic to evaluate for celiac plexus block, however per chart review, GI clinic was unable to reach the patient despite multiple telephoneattempts, per patient, she had an appointment on Thursday that she missed 2/2 snow. On arrival to theED, patient tachycardic to 108, BP 137/90, afebrile and saturating appropriately on room air. Labs,including lactate and lipase, were unremarkable, no imaging performed. Hospital medicine was consulted for admission and further management of intractable pain. GI was consulted for celiac plexus block and patient not a candidate given no imaging evidence of chronic pancreatitis. She underwent EGD 03/20 which revealed candidal esophagitis and gastroparesis. She was started on 14d course of fluconazole and metoclopramide PRN. Patient's pain was managed with tylenol, GI cocktail, and narcotics. Patient was on PO narcotics on day of discharge. On 03/25/23, vitals were stable, pain controlled, and patient felt safe for discharge. The patient was counseled on lifestyle modifications, medication compliance, and had close follow-up. Reasons to return to clinic or ED were discussed and he demonstrated understanding. Detailed outline of active i npatient conditions listed below. Patient to follow up with Family medicine on 03/26/23 at 11AM to establish care as she was discharged from pain clinic. Acute on chronic abdominal pain, nausea, vomiting Gastroparesis - Etiology: Flare up of acute on chronic pain vs functional pain/cyclic vomiting. Pt declined CT. - 2 weeks of intense epigastric and left upper quadrant abdominal pain with intractable nausea, vomiting and diarrhea. Multiple ED visits and hospital stays for the last 2 years for the same reason. - Lipase 35 - Based on chart review, recurrent and chronic pain could be due to chronic pancreatitis. But for this year, multiple CTs did not show any signs of inflammation and there are many documentation aboutfunctional pain and maladaptive behavior. - 03/14/23 CTAP: Borderline dilatation of the jejunal loops up to 4.1 cm without transition likely ileus. Mild thickening of the jejunal loops could be nonspecific or secondary to inflammatory process. - Discharged from pain clinic 03/27 UDS with THC - UDS on admission +benzo, +barbituate, +oxycodone, +cannabinoid - EGD 03/21 revealed candidal esophagitis, abnormal mucosa, and retained food c/f gastroparesis PLAN - Pain control: tylenol PRN, oxy 20mg q8h PRN (1.5d supply as patient has PCP appt tomorrow), GI cocktail, famotidine, ibuprofen, simethicone and bentyl PRN - Zofran and metoclopramide for treatment of gastroparesis and nausea - Follow up with GI outpatient - Encouraged cessation of cigarette smoking and marijuana smoking. - Continue home pancrelipase TID with meals - Patient prescribed ativan BID PRN at home, which she has recently filled a script for. Educated patient on importance of avoiding taking benzo's and narcotics on the same day, and advised risk of respiratory and [employer] depression. Patient voiced understanding Lien Esophagitis - Appreciated on 03/21 EGD - Plan for 14d course of fluconazole, started 03/20 - HIV nonreactive 03/07/23, no history of immunosuppression * Progress Notes - Michelle Munoz MD - 03/21/2023 12:17 PM EST Subjective NAEON. Patient resting comfortably in bed on exam, in no acute distress. Continues to ask for more pain medication. No new complaints or concerns. Review of Systems Constitutional: Negative for fever. HENT: Negative for sore throat. Eyes: Negative for visual disturbance. Respiratory: Negative for cough and shortness of breath. Cardiovascular: Negative for chest pain and palpitations. Gastrointestinal: Positive for abdominal pain and nausea. Negative for abdominal distention, constipation, diarrhea and vomiting. Endocrine: Negative for polyuria. Neurological: Negative for syncope, light-headedness and headaches. Objective Physical Exam Constitutional: General: She is not in acute distress. Appearance: Normal appearance. She is not ill-appearing or diaphoretic. HENT: Head: Normocephalic and atraumatic. Eyes: Conjunctiva/sclera: Conjunctivae normal. Cardiovascular: Rate and Rhythm: Normal rate and regular rhythm. Heart sounds: Normal heart sounds. No murmur heard. Pulmonary: Effort: Pulmonary effort is normal. No respiratory distress. Breath sounds: Normal breath sounds. Abdominal: General: Bowel sounds are normal. There is no distension. Palpations: There is no mass. Tenderness: There is abdominal tenderness. There is no guarding or rebound. Hernia: No hernia is present. Musculoskeletal: General: No deformity or signs of injury. Right lower leg: No edema. Left lower leg: No edema. Skin: General: Skin is warm. Coloration: Skin is not jaundiced. Findings: No bruising, erythema or rash. Neurological: General: No focal deficit present. Mental Status: She is alert. Psychiatric: Mood and Affect: Mood normal. Last Recorded Vitals Blood pressure 124/73, pulse 70, temperature 36.3 ??C (97.4 ??F), temperature source Axillary, resp. rate 18, height 1.651 m (5' 5 ), weight 101 kg (222 lb 12.8 oz), SpO2 97 %, not currently . Assessment/Plan Principal Problem: Acute on chronic pancreatitis (CMS/HCC) Rosibel Gayle is a 37 y.o. year-old female who has a past medical history of Anxiety, Arthritis,Depression, Fibromyalgia, Gastric erosions, GERD (gastroesophageal reflux disease), Hypertension, Nicotine dependence, Obesity, and alcoholic Pancreatitis who presents to [facility] ED due to left upper quadrant abdominal pain with nausea, vomiting, and diarrhea. Acute on chronic pancreatitis with intractable pain, nausea, vomiting and diarrhea Gastroparesis Chronic Pain - Etiology: Flare up of acute on chronic pancreatitis pain vs functional pain/cyclic vomiting. Pt declined CT. - 2 weeks of intense epigastric and left upper quadrant abdominal pain with intractable nausea, vomiting and diarrhea. Multiple ED visits and hospital stays for the last 2 years for the same reason. - Lipase 35 - Based on chart review, recurrent and chronic pain could be due to chronic pancreatitis. But for this year, multiple CTs did not show any signs of inflammation and there are many documentation aboutfunctional pain and maladaptive behavior. - 03/14/23 CTAP: Borderline dilatation of the jejunal loops up to 4.1 cm without transition likely ileus. Mild thickening of the jejunal loops could be nonspecific or secondary to inflammatory process. - Was to follow up with pancreas clinic to evaluate for celiac plexus block by endoscopy (per [facility]) however missed appt. - Discharged from pain clinic / UDS with THC - UDS on admission +benzo, +barbituate, +oxycodone, +cannabinoid - Plan to establish care with family medicine, appt next month - EGD 03/21 revealed candidal esophagitis, abnormal mucosa, and retained food c/f gastroparesis PLAN - CLD, advance as tolerated - Pain control: scheduled tylenol, oxy 15mg q4h PRN - Zofran for nausea, adding metoclopramide for treatment of gastroparesis and nausea - Discontinuing IV dilaudid, educated patient that increasing or adding more narcotics will only worsen gastroparesis and pain group home. Multiple providers have documented in past opiate abuse and to avoid dilaudid. - Adding GI cocktail and ibuprofen PRN for additional relief - Plan to DC on 3 days medications. - Follow up with GI outpatient -Encouraged cessation of cigarette smoking and marijuana smoking. - Continue home pancrelipase TID with meals Lien Esophagitis - Appreciated on 03/21 EGD - Plan for 14d course of fluconazole, started 03/20 - HIV nonreactive 03/07/23, no history of immunosuppression Chronic Medical Conditions: Fibromyalgia - continue home lyrica Anxiety and Depression: continue home duloxetine and PRN ativan GERD- Continue home PPI Insomnia- Continue melatonin HS for sleep Nicotine Dependence - NRT Marijuana use - Encourage cessation Obesity - BMI: 38.27, complicates all aspects of care Venous thromboembolism prophylaxis Patient on enoxaparin Michelle Munoz MD Internal Medicine PGY-3 Pager# [phone] Cosigned by Claudio Landry MD at 03/21/2023 2:57 PM EST Associated attestation - Claudio Landry MD - 03/21/2023 2:57 PM EST I saw and evaluated the patient with the resident/fellow. I discussed the case with the resident/fellow and agree with the findings and plan as documented. Acute on Chronic Abdominal Pain Hx of recurrent acute pancreatitis N/V/D - Continuous fluids - Advance diet as able. - Pain regimen, titrating down today. - Anti-emetics ordered - Continue home pancrelipase - EGD showed abnormal mucosa in the middle and lower third of the esophagus. GI recommended treatment with Reglan and Fluconazole. * Care Plan - Anna Spencer RN - 03/20/2023 5:34 PM EST Will continue the plan of care. Problem: Adult Inpatient Plan of Care Goal: Plan of Care Review Outcome: Ongoing, Progressing Goal: Patient-Specific Goal (Individualized) Outcome: Ongoing, Progressing Goal: Absence of Hospital-Acquired Illness or Injury Outcome: Ongoing, Progressing Goal: Optimal Comfort and Wellbeing Outcome: Ongoing, Progressing Goal: Readiness for Transition of Care Outcome: Ongoing, Progressing * Progress Notes - Michelle Munoz MD - 03/20/2023 9:01 AM EST Subjective NAEON. Patient resting comfortably in bed on exam. NPO for procedure today and is eager for relief.No new complaints or concerns. Review of Systems Constitutional: Negative for fever. HENT: Negative for sore throat. Eyes: Negative for visual disturbance. Respiratory: Negative for cough and shortness of breath. Cardiovascular: Negative for chest pain and palpitations. Gastrointestinal: Positive for abdominal pain and nausea. Negative for abdominal distention, constipation, diarrhea and vomiting. Endocrine: Negative for polyuria. Neurological: Negative for syncope, light-headedness and headaches. Objective Physical Exam Constitutional: General: She is not in acute distress. Appearance: Normal appearance. She is not ill-appearing or diaphoretic. HENT: Head: Normocephalic and atraumatic. Eyes: Conjunctiva/sclera: Conjunctivae normal. Cardiovascular: Rate and Rhythm: Normal rate and regular rhythm. Heart sounds: Normal heart sounds. No murmur heard. Pulmonary: Effort: Pulmonary effort is normal. No respiratory distress. Breath sounds: Normal breath sounds. Abdominal: General: Bowel sounds are normal. There is no distension. Palpations: There is no mass. Tenderness: There is abdominal tenderness. There is no guarding or rebound. Hernia: No hernia is present. Musculoskeletal: General: No deformity or signs of injury. Right lower leg: No edema. Left lower leg: No edema. Skin: General: Skin is warm. Coloration: Skin is not jaundiced. Findings: No bruising, erythema or rash. Neurological: General: No focal deficit present. Mental Status: She is alert. Psychiatric: Mood and Affect: Mood normal. Last Recorded Vitals Blood pressure 120/80, pulse 86, temperature 36.6 ??C (97.8 ??F), temperature source Oral, resp. rate 16, height 1.651 m (5' 5 ), weight 101 kg (222 lb 12.8 oz), SpO2 98 %, not currently . Assessment/Plan Principal Problem: Acute on chronic pancreatitis ([facility]) Rosibel Gayle is a 37 y.o. year-old female who has a past medical history of Anxiety, Arthritis,Depression, Fibromyalgia, Gastric erosions, GERD (gastroesophageal reflux disease), Hypertension, Nicotine dependence, Obesity, and alcoholic Pancreatitis who presents to [facility] ED due to left upper quadrant abdominal pain with nausea, vomiting, and diarrhea. Acute on chronic pancreatitis with intractable pain, nausea, vomiting and diarrhea Chronic Pain - Etiology: Flare up of acute on chronic pancreatitis pain vs functional pain/cyclic vomiting. Pt declined CT. - 2 weeks of intense epigastric and left upper quadrant abdominal pain with intractable nausea, vomiting and diarrhea. Multiple ED visits and hospital stays for the last 2 years for the same reason. - Lipase 35 - Based on chart review, recurrent and chronic pain could be due to chronic pancreatitis. But for this year, multiple CTs did not show any signs of inflammation and there are many documentation aboutfunctional pain and maladaptive behavior. - 03/14/23 CTAP: Borderline dilatation of the jejunal loops up to 4.1 cm without transition likely ileus. Mild thickening of the jejunal loops could be nonspecific or secondary to inflammatory process. - Was to follow up with pancreas clinic to evaluate for celiac plexus block by endoscopy (per [facility]) however missed appt. - Discharged from pain clinic 2/2 UDS with THC - UDS on admission +benzo, +barbituate, +oxycodone, +cannabinoid - Plan to establish care with family medicine, appt next month PLAN - NPO for procedure, then CLD, advance as tolerated - Pain control: scheduled tylenol, oxy 15mg q4h PRN, dilaudid 0.5mg IV q6h PRN for severe breakthrough pain - Zofran for nausea - GI consulted for celiac plexus block inpatient vs outpatient, appreciate recommendations and involvement in care. EGD today, likely follow up outpatient for further consideration of treatment options -Encouraged cessation of cigarette smoking and marijuana smoking. - Continue home pancrelipase TID with meals Chronic Medical Conditions: Fibromyalgia - continue home lyrica Anxiety and Depression: continue home duloxetine and PRN ativan GERD- Continue home PPI Insomnia- Continue melatonin HS for sleep Nicotine Dependence - NRT Marijuana use - Encourage cessation Obesity - BMI: 38.27, complicates all aspects of care Venous thromboembolism prophylaxis Patient on enoxaparin Michelle Munoz MD Internal Medicine PGY-3 Pager# [phone] Cosigned by Claudio Landry MD at 03/20/2023 2:04 PM EST Associated attestation - Claudio Landry MD - 03/20/2023 2:04 PM EST I saw and evaluated the patient with the resident/fellow. I discussed the case with the resident/fellow and agree with the findings and plan as documented. Acute on Chronic Abdominal Pain Hx of recurrent acute pancreatitis N/V/D - Continuous fluids - CLD - Pain regimen, titrate down as able. - Anti-emetics ordered - Continue home pancrelipase - Discussing with GI about the possibility of Celiac plexus block. - Plan for EGD today. * Consults - Daniel Navas MD - 03/19/2023 4:58 PM ESTAssociated Order(s): Inpatient consult to Gastroenterology Inpatient consult to Gastroenterology Consult performed by: Daniel Navas MD Consult ordered by: Claudio Landry MD Gastroenterology Consult Note Reason for Consult: Abdominal pain HPI Rosibel Gayle is a 37 y.o. female with a PMH of fibromyalgia, anxiety, recurrent acute pancreatitis admitted with abdominal pain. Patient has frequent ED presentations with similar complaints. She has chronic abdominal pain dating back several years. She has had multiple episodes of acute pancreatitis. She had questionable chronic pancreatitis based on chart review however imaging including CT, MR, and EUS has consistently failed to demonstrate this. This admission presents with her typical epigastric, LUQ pain and associated n/v. Lipase wnl. CT AP with borderline small bowel distention without transition point or signs of obstruction. She is having bowel movements. GI consulted for consideration of celiac plexus block. ROS All systems reviewed and negative unless otherwise noted in HPI. Past Medical History: Diagnosis Date Anxiety Arthritis Depression Fibromyalgia Gastric erosions 04/19/2021 GERD (gastroesophageal reflux disease) Hypertension Intentional overdose ([facility]) 12/20/2021 Nicotine dependence Obesity Pancreatitis Past Surgical History: Procedure Laterality Date CHOLECYSTECTOMY ERCP ESOPHAGOGASTRODUODENOSCOPY HAND SURGERY Right Family History Problem Relation Name Age of Onset Hypertension Mother No Known Problems Father Social History Tobacco Use Smoking status: Every [...] Marijuana Comment: a few times a month Objective Vitals: 03/19/23 0800 03/19/23 0831 03/19/23 1218 03/19/23 1502 BP: 136/89 (!) 143/91 126/85 BP Location: Left arm Left arm Left arm Patient Position: Lying Sitting Sitting Pulse: 75 86 64 Resp: 18 16 18 Temp: 36.5 ??C (97.7 ??F) 36.3 ??C (97.3 ??F) 36.3 ??C (97.4 ??F) TempSrc: Tympanic Oral Oral SpO2: 100% 97% 98% Weight: 105 kg (230 lb 9.6 oz) Height: 1.651 m (5' 5 ) BMI: Body mass index is 38.37 kg/m??. Physical Exam: General Awake, NAD Eyes EOMI, sclera anicteric Head NC/AT ENT OP moist. Hearing grossly normal. CV Warm and well perfused RES Equal chest rise, normal effort GI Soft. +LUQ tenderness. No rebound, guarding. FANI AAOx4. No gross deficits. EXT No cyanosis. No edema Skin No visible skin lesions PSY Appropriate mood and affect I/O: I/O last 3 completed shifts: In: 2719 (26 mL/kg) [P.O.:1719; I.V.:1000 (9.6 mL/kg)] Out: 125 (1.2 mL/kg) [Urine:125 (0 mL/kg/hr)] Weight: 104.6 kg I/O this shift: In: 240 [P.O.:240] Out: - Labs: CBC: Results from last 7 days Lab Units 03/18/23 1100 03/14/23 1312 WBC 10*3/uL 7.79 2.88* HEMOGLOBIN g/dL 11.3 10.6* HEMATOCRIT % 34.7 34.0 PLATELETS 10*3/uL 285 188 CMP: Results from last 7 days Lab Units 03/18/23 1100 03/14/23 1312 SODIUM mmol/L 140 139 POTASSIUM mmol/L 4.3 4.1 CHLORIDE mmol/L 106 107 CO2 mmol/L 24 20* BUN mg/dL 10 8 CREATININE mg/dL 0.51* 0.43* CALCIUM mg/dL 9.5 8.8* BILIRUBIN TOTAL mg/dL 0.2 <0.2* ALKALINE PHOSPHATASE U/L 104 118* ALT U/L 24 29 AST U/L 20 23 GLUCOSE mg/dL 106* 108* Microbiology/Abx: Results No results found for the last 48 hours. Imaging: @IMAGES@ Medications (scheduled): acetaminophen, 650 mg, Oral, q6h INO DULoxetine, 60 mg, Oral, Daily enoxaparin, 40 mg, Subcutaneous, Daily nicotine, 1 patch, Transdermal, Daily pancrelipase (Ovz-Fwla-Cict), 1 capsule, Oral, TID with meals pantoprazole, 40 mg, Oral, Daily polyethylene glycol, 17 g, Oral, Daily pregabalin, 300 mg, Oral, BID senna, 2 tablet, Oral, Nightly Medications (continous): Medications (PRN): PRN medications: cloNIDine, dicyclomine, famotidine, HYDROmorphone, hydrOXYzine pamoate, LORazepam,melatonin, ondansetron ODT, oxyCODONE, simethicone, [COMPLETED] Insert peripheral IV AND [COMPLETED] Saline lock IV AND sodium chloride AND sodium chloride, traZODone Assessment and Plan Rosibel Gayle is a 37 y.o. female with a PMH of fibromyalgia, anxiety, recurrent acute pancreatitis admitted with abdominal pain. #Abdominal pain, acute on chronic #History of recurrent acute pancreatitis #History of duodenal ulcers - Patient has frequent ED presentations with similar complaints. She has chronic abdominal pain dating back several years. - She has had multiple episodes of acute pancreatitis. - She had questionable chronic pancreatitis based on chart review however imaging including CT, MR,and EUS have consistently failed to demonstrate this. At present she does not have clear diagnosis of chronic pancreatitis. She did have isolated check of low elastase in 2021 for which she is on creon. - This admission presents with her typical epigastric, LUQ pain and associated n/v. Lipase wnl. CT AP with borderline small bowel distention without transition point or signs of obstruction. She is having bowel movements. GI consulted for consideration of celiac plexus block. PLAN: - plan for EGD tomorrow, keep NPO at midnight - continue symptomatic care with anti-emetics, anti-acids, analgesics - will need to follow up in GI clinic for further management/evaluation of recurrent AP. At this point, no clear indication for celiac plexus block. Staffed w/ attending: MD Parker Thank you for allowing us to participate in this patient's care. Please do not hesitate to call or page with questions or concerns. Daniel Navas MD PGY-5 Gastroenterology Fellow [facility] Pager: [phone] Cosigned by Jose Canales MD at 03/19/2023 5:59 PM EST Associated attestation - Jose Canales MD - 03/19/2023 5:59 PM EST I saw and evaluated the patient with the resident/fellow. I discussed the case with the resident/fellow and agree with the findings and plan as documented. * Consults - Jadon Brown - 03/19/2023 3:32 PM EST Pastoral Care Note Referral From: Help Desk Representative Initiated Pastoral Care Provided For: Patient Patient Profile: Consult Reasons: Initial visit Spiritual Assessment: Interventions: Interventions Provided: Introduced Patient/Family to Help Desk Representative Services Pastoral Care Outcomes: Patient Outcomes: Is knowledgeable about [employer] * Progress Notes - Dominga Diggs Rhina - 03/19/2023 2:59 PM EST Music Therapy Note Subjective: Patient Presented: Sitting up in bed Patient reported feeling: I had a really bad night Initial Behavioral Presentation: Anxious Patient's initial self-reported level of pain/discomfort: 20/10 anxiety, 9/10 pain Intrasession Behavioral Presentation: Positive After Disposition/ Affect: Positive Patient's ending self-reported level of pain/discomfort: 10/10 anxiety, 7/10 pain at end of session, 0/10 pain during active music engagement Others Present: Alone Treatment Goals & Interventions: Increase: Coping, Mood Decrease: Pain/discomfort, Anxiety Music Therapy Interventions: Choice making, Active music engagement, Auditory Stimulation, Active music listening, Music-based discussion, Verbal Processing, Singing Communications: Methods: Verbalizations Responses: Making choices, Positive comments about the music, Statements regarding positive emotions (comment), Statements regarding negative emotions, Coping statements, Patient stated ( This was awesome. You have no idea how much this helped. ) Behavioral Observations: Responses: Active Listening, Engaging in discussion, Eye contact, Head nodding, Making choices, Laughing, Positive non-verbal behaviors, Smiling, Relaxation behaviors Engagement Level: Active Engagement Musical Responses: Expressive movement, Mouthing lyrics, Singing, Rhythmic movement Comments: Pt welcomed MT and shared hx of health concerns, social/emotional stressors (aunt very recently fell into a coma), and poor sleep/pain management within past 24 hours. MT-BC listened supportively andprovided education on MT services and also offered to consult massage therapy, for which pt was appreciative. Pt rates her baseline pain at 6-7/10, and requested familiar music that matched her mood.Pt responded positively to MTx interventions AEB closing her eyes, singing along, swaying/gesturingwith the music, sharing meaning of music to her current and past situations, and reporting that themusic took her mind off her pain completely while she was participating. Pt reported significant decrease in emotional pain and decrease in physical discomfort. Pt expressed gratitude for MT services and smiled at end of session. Length of Visit: 87 min Plan of Care: Continue to address above goals and additional goals as appropriate during hospitalization * Progress Notes - Michelle Munoz MD - 03/19/2023 11:29 AM EST Subjective Patient with uncontrolled pain overnight. Upon entrance, patient resting comfortably in bed. Becomes tearful on interview 2/ pain. States she had a bad night and did not sleep well. No new complaints or concerns this morning. Review of Systems Constitutional: Negative for fever. HENT: Negative for sore throat. Eyes: Negative for visual disturbance. Respiratory: Negative for cough and shortness of breath. Cardiovascular: Negative for chest pain and palpitations. Gastrointestinal: Positive for abdominal pain and nausea. Negative for abdominal distention, constipation, diarrhea and vomiting. Endocrine: Negative for polyuria. Neurological: Negative for syncope, light-headedness and headaches. Objective Physical Exam Constitutional: General: She is not in acute distress. Appearance: Normal appearance. She is not ill-appearing or diaphoretic. HENT: Head: Normocephalic and atraumatic. Eyes: Conjunctiva/sclera: Conjunctivae normal. Cardiovascular: Rate and Rhythm: Normal rate and regular rhythm. Heart sounds: Normal heart sounds. No murmur heard. Pulmonary: Effort: Pulmonary effort is normal. No respiratory distress. Breath sounds: Normal breath sounds. Abdominal: General: Bowel sounds are normal. There is no distension. Palpations: There is no mass. Tenderness: There is abdominal tenderness. There is no guarding or rebound. Hernia: No hernia is present. Musculoskeletal: General: No deformity or signs of injury. Right lower leg: No edema. Left lower leg: No edema. Skin: General: Skin is warm. Coloration: Skin is not jaundiced. Findings: No bruising, erythema or rash. Neurological: General: No focal deficit present. Mental Status: She is alert. Psychiatric: Mood and Affect: Mood normal. Last Recorded Vitals Blood pressure 136/89, pulse 75, temperature 36.5 ??C (97.7 ??F), temperature source Tympanic, resp. rate 18, height 1.651 m (5' 5 ), weight 105 kg (230 lb 9.6 oz), SpO2 100 %, not currently . Assessment/Plan Principal Problem: Acute on chronic pancreatitis ([facility]) Rosibel Gayle is a 37 y.o. year-old female who has a past medical history of Anxiety, Arthritis,Depression, Fibromyalgia, Gastric erosions, GERD (gastroesophageal reflux disease), Hypertension, Nicotine dependence, Obesity, and alcoholic Pancreatitis who presents to [facility] ED due to left upper quadrant abdominal pain with nausea, vomiting, and diarrhea. Acute on chronic pancreatitis with intractable pain, nausea, vomiting and diarrhea Chronic Pain - Etiology: Flare up of acute on chronic pancreatitis pain vs functional pain/cyclic vomiting. Pt declined CT. - 2 weeks of intense epigastric and left upper quadrant abdominal pain with intractable nausea, vomiting and diarrhea. Multiple ED visits and hospital stays for the last 2 years for the same reason. - Lipase 35 - Based on chart review, recurrent and chronic pain could be due to chronic pancreatitis. But for this year, multiple CTs did not show any signs of inflammation and there are many documentation aboutfunctional pain and maladaptive behavior. - 03/14/23 CTAP: Borderline dilatation of the jejunal loops up to 4.1 cm without transition likely ileus. Mild thickening of the jejunal loops could be nonspecific or secondary to inflammatory process. - Was to follow up with pancreas clinic to evaluate for celiac plexus block by endoscopy (per [facility]) however missed appt. - Discharged from pain clinic / UDS with THC - UDS on admission +benzo, +barbituate, +oxycodone, +cannabinoid - Plan to establish care with family medicine, appt next month PLAN - CLD, advance as tolerated - Pain control: scheduled tylenol, oxy 10mg q4h PRN, dilaudid 0.5mg IV q6h PRN for severe breakthrough pain - Zofran for nausea - GI consulted for celiac plexus block inpatient vs outpatient, appreciate recommendations and involvement in care -Encouraged cessation of cigarette smoking and marijuana smoking. - Continue home pancrelipase TID with meals Chronic Medical Conditions: Fibromyalgia - continue home lyrica Anxiety and Depression: continue home duloxetine and PRN ativan GERD- Continue home PPI Insomnia- Continue melatonin HS for sleep Nicotine Dependence - NRT Marijuana use - Encourage cessation Obesity - BMI: 38.27, complicates all aspects of care Venous thromboembolism prophylaxis Patient on enoxaparin Michelle Munoz MD Internal Medicine PGY-3 Pager# [phone] Cosigned by Claudio Landry MD at 03/19/2023 3:30 PM EST Associated attestation - Claudio Landry MD - 03/19/2023 3:30 PM EST I saw and evaluated the patient with the resident/fellow. I discussed the case with the resident/fellow and agree with the findings and plan as documented. Chronic Pancreatitis Abdominal Pain N/V/D - Continuous fluids - CLD - Pain regimen, titrate down as able. - Anti-emetics ordered - Continue home pancrelipase - Discussing with GI about the possibility of Celiac plexus block. * Progress Notes - Jarett Loya - 03/19/2023 10:21 AM EST Case Management Adult Initial Progress Note Rosibel Gayle 37 y.o. female CSN: [id number] Admission: 03/18/2023 8:39 AM Primary Problem: Acute on chronic pancreatitis (CMS/HCC) Historical Society Director reviewed chart and spoke with patient to complete this Initial Case Management Assessment. PCP: Pcp, No Emergency Contact: Extended Emergency Contact Information Primary Emergency Contact: SandraAsiya Address: [address] [place] [address] of [facility] Mobile Relation: Mother Preferred language: Hebrew Mold Car Pusher needed? No Insurance: Primary Visit Coverage Payer Plan Sponsor Code Group Number Group Name ANTHEM MEDICAID ANTHEM MEDICAID [id number] Primary Visit Coverage Subscriber Subscriber ID Subscriber Name Subscriber SSN Subscriber Address [id number] ROSIBEL GAYLE [id number] [place] [address] Patient information: Primary Caregiver: Self Support System: Extended family Daily Living Activities: Functional Status: Independent Living Arrangements: Family Type of Residence: Private residence [address] [place], [place] [id number] Smoker in the Home?: Yes Current DME: Equipment Currently Used at Home: none Income Information: Income Source: Government aid Income/Expense Information: Income meets expenses Current Resources Utilized: Food [employer] Housing Circumstances-Z Codes: Housing Circumstances (select all that apply): Low Income (101-300% Federal Poverty Guidlines) - Z596 Patient Referred to: Anticipated Discharge Date: TBD Patient's Discharge Goal: Home Assistance Available at Discharge: Family Discharge Transport: Family Follow Up Transport: Self or family Home Health / Home Infusion / Outpatient Dialysis Services: Living Will/Advance Directive/Power of Pharmacy Clinical Specialist /Guardian: Unable to assess: No Have you reviewed your Advance Directive and is it valid for this stay?: No Advance Directive: Patient would not like information Pre-existing DNR/DNI Order: No Patient Requests Assistance: No Additional Comments: Jarett Loya * Consults - Val Stanford RD - 03/19/2023 8:33 AM EST Adult Nutrition Evaluation Note Rosibel Gayle 37 y.o. female CSN: [id number] Room/Bed 406/406A Nutrition evaluation type: screen Reason for evaluation: nurse consult; MST 3 Hospital course: 37 y/o female admitted 03/18 for acute on chronic pancreatitis. Pt presented to [facility] for intractable epigastric abdominal pain, nausea, and vomiting. Pt has been evaluated in the EDmultiple times for similar complaints over the past month (02/18/23 - 03/18/23). Per H&P note (03/18), pt denied wt loss, but is unable to tolerate PO intake. Past medical/ surgical history: Past Medical History: Diagnosis Date Anxiety Arthritis Depression Fibromyalgia Gastric erosions 04/19/2021 GERD (gastroesophageal reflux disease) Hypertension Intentional overdose ([facility]) 12/20/2021 Nicotine dependence Obesity Pancreatitis Past Surgical History: Procedure Laterality Date CHOLECYSTECTOMY ERCP ESOPHAGOGASTRODUODENOSCOPY HAND SURGERY Right Social history: Smoker - 0.5 packs/d for 20 years, no EtOH in a few months, +marijuana use Additional comments: 03/19: Pt endorsed not being very hungry at this time. Pt stated she is very nauseous and will try to eat once the zofran kicks in. Pt hasn't had any vomiting. Pt reported having soft stools, but no diarrhea. Pt doesn't have any known food allergies. Pt denied any difficulty chewing/swallowing. Pt reported UBW ~238# (108kg) and no recent wt loss. Vitals and Basic Assessment: BP: (!) 143/91 Temp: 36.3 ??C (97.3 ??F) Oxygen Therapy: None (Room air) Jo Coma Scale Score: 15 Scott Scale Score: 20 Last BM Date: 03/18/23 GI Symptoms: Nausea Skin is intact at this time. Allergies: NKFA Medications: Scheduled: acetaminophen, 650 mg, Oral, q6h INO DULoxetine, 60 mg, Oral, Daily enoxaparin, 40 mg, Subcutaneous, Daily nicotine, 1 patch, Transdermal, Daily pancrelipase (Anp-Uqln-Hkip), 1 capsule, Oral, TID with meals pantoprazole, 40 mg, Oral, Daily polyethylene glycol, 17 g, Oral, Daily pregabalin, 300 mg, Oral, BID senna, 2 tablet, Oral, Nightly PRN medications: cloNIDine, dicyclomine, famotidine, HYDROmorphone, hydrOXYzine pamoate, LORazepam,melatonin, ondansetron ODT, oxyCODONE, simethicone, [COMPLETED] Insert peripheral IV AND [COMPLETED] Saline lock IV AND sodium chloride AND sodium chloride, traZODone Meds were reviewed: Yes Labs: Lab Results Component Value Date WBC 7.79 03/18/2023 HGB 11.3 03/18/2023 HCT 34.7 03/18/2023 MCV 81 03/18/2023 PLT 285 03/18/2023 Lab Results Component Value Date GLUCOSE 106 (H) 03/18/2023 CALCIUM 9.5 03/18/2023 NA 140 03/18/2023 K 4.3 03/18/2023 CO2 24 03/18/2023 CL 106 03/18/2023 BUN 10 03/18/2023 CREATININE 0.51 (L) 03/18/2023 PHOS 5.9 (H) 02/21/2023 MG 1.9 03/10/2023 HGBA1C 5.2 11/21/2022 EGFR 124.2 03/18/2023 LIPASE 35 03/18/2023 Lab Results Component Value Date ALBUMIN 4.1 03/18/2023 Note: Albumin is a negative acute phase protein and not a good indicator of nutrition status. Lab Results Component Value Date CRP 9.2 (H) 11/18/2022 Lab Results Component Value Date ALT 24 03/18/2023 AST 20 03/18/2023 ALKPHOS 104 03/18/2023 BILITOT 0.2 03/18/2023 Anthropometrics: Height: 165.1 cm (5' 5 ) Weight: 105 kg (230 lb 9.6 oz) BMI (Calculated): 38.37 Weight Evaluation: Obese-Class 2 (BMI 35-39.9) [place] Body Weight (kg): 57 Percent [place] Body Weight: 184 Adjusted Body Weight (kg): 69 Wt Readings from Last 10 Encounters: 03/19/23 105 kg (230 lb 9.6 oz) 03/14/23 104 kg (230 lb) 03/10/23 103 kg (228 lb) 03/08/23 103 kg (228 lb) 03/03/23 103 kg (228 lb) 02/24/23 100 kg (221 lb 5.5 oz) 02/18/23 106 kg (234 lb) 12/27/22 107 kg (235 lb 14.3 oz) 12/26/22 107 kg (235 lb) 12/24/22 106 kg (233 lb 11 oz) -- Pt's UBW ~230# (105kg) -- Pt reported UBW ~238# (108kg) and no recent wt loss. Estimated Needs: Kcal/ K-35 Kcal Provided: 3373-4870 Kcal Needs Based On: Adjusted weight (69kg) Gm Protein/ Kg : 1.2-1.5 Protein Provided: 68-86 Protein Needs Based On: [place] weight (57kg) Fluid Provided: 1mL/kcal or per MD team Metabolic Cart Study Results: Current Nutrition Intake: Diet Supplements: None Diet Order: Adult Diet Diet Texture: Regular Fat Restriction: Low fat Percent Meals Eaten (%): 75% avg x 2 meals (03/18) Diet Experience and Nutrition History: Diet Education Provided: Will monitor Pertinent home medications: Vitamin D, B12, pepcid, ativan, kloxxado, zofran, oxycodone, creon, protonix, phenergan, carafate Scientology needs: None Nutrition Focused Physical Exam: Obesity could be skewing exam. Physical exam performed on (date): 03/19/23 Temples (muscles): None Clavicle (muscle): None Shoulder (muscle): None Thigh (muscle): None Calf (muscle): None Orbital (fat): None Triceps (fat): None Assessment of Malnutrition: Malnutrition Identified: No Nutrition Problem: Increased nutrient needs kcal, pro related to increased metabolic demand as evidenced by acute on chronic pancreatitis. Status of Nutrition Diagnosis: New Nutrition Interventions and Recommendations: Continue Regular, low fat diet as tolerated. Will monitor need for PO nutritional supplement. Rec MVI with mineral supplementation daily. Agree with home Creon TID with meals. Antiemetic regimen per MD team. Rec obtaining weight 1x/week. Nursing: Please document all PO intakes in I/Os in Flowsheets. Nutrition Monitoring and Goals: - Will monitor PO intake, weight status, lab results, GI tolerance, and skin integrity. - Pt will tolerate >75% avg of meal intakes. - Pt will maintain weight this admission. Acuity Level: [address], LD, MS * Procedures - Leny Gutierrez RN - 03/19/2023 3:23 AM ESTAssociated Order(s): Insert peripheral IV Insert peripheral IV Performed by: Leny Gutierrez RN Authorized by: Claudio Landry MD Hand hygiene: Hand hygiene performed prior to insertion Inserted using aseptic techniques: Yes Preparation: Skin prepped with chg Orientation: Left Location: Wrist Catheter placed: Peripheral IV Catheter size: 20g/1.16in Line Technique: Ultrasound Guidance Number of attempts: 1 IV flushes: Without difficulty and positive blood return noted and IV luer locked Patient tolerance: Patient tolerated the procedure well, there were no complications and age appropriate response IV site covered with: Transparent semipermeable dressing * Care Plan - Suyapa Valdez RN - 03/19/2023 12:56 AM EST Problem: Adult Inpatient Plan of Care Goal: Plan of Care Review Outcome: Ongoing, Progressing Goal: Patient-Specific Goal (Individualized) Outcome: Ongoing, Progressing Goal: Absence of Hospital-Acquired Illness or Injury Outcome: Ongoing, Progressing Goal: Optimal Comfort and Wellbeing Outcome: Ongoing, Progressing Goal: Readiness for Transition of Care Outcome: Ongoing, Progressing Problem: Fall Injury Risk Goal: Absence of Fall and Fall-Related Injury Outcome: Ongoing, Progressing Problem: Pain Acute Goal: Optimal Pain Control and Function Outcome: Ongoing, Progressing * H&P - Michelle Munoz MD - 03/18/2023 1:13 PM ESTAssociated Order(s): Consult to [facility] Images from the original note were not included. Consult to [facility] Consult performed by: Michelle Munoz MD Consult ordered by: Neli Manuel PA Chief Concern & History Of Present Illness Rosibel Gayle is a 37 y.o. female with history of anxiety, fibromyalgia, depression, GERD, HTN, nicotine dependence, obesity and alcohol related pancreatitis, and chronic pain recently discharged from her pain clinic presenting with intractable epigastric abdominal pain, nausea and vomiting. Edita blum has been evaluated in the ED multiple times for similar complaints including 03/15/23, 03/14/23, 03/10/23, 03/08/23, 03/07/23, 03/03/23, 03/01/23, 02/23/23, 02/22/23, 02/21/23, 02/20/23, 02/18/23. During 02/20/23 hospitalization, she was to follow up with [facility] clinic to evaluate for celiac plexus block, however per chart review, GI clinic was unable to reach the patient despite multiple telephoneattempts, per patient, she had an appointment on Thursday that she missed 2/2 snow. Patient is very tearful on exam, stating that her pain has disrupted her quality of life significantly and she just wants the pain to stop. She endorses nausea and bilious vomiting. She denies weight loss. She endorses 2 soft bowel movements today and denies blood in her stool. She states she is unable to tolerate PO intake. On arrival to the ED, patient tachycardic to 108, BP 137/90, afebrile and saturating appropriately on room air. Labs, including lactate and lipase, were unremarkable, no imaging performed. Hospital medicine was consulted for admission and further management of intractable pain. Past Medical History She has a past medical history of Anxiety, Arthritis, Depression, Fibromyalgia, Gastric erosions (04/19/2021), GERD (gastroesophageal reflux disease), Hypertension, Intentional overdose (CMS/HCC) (12/20/2021), Nicotine dependence, Obesity, and Pancreatitis. Surgical [...] last month? No Travel History Travel since 02/15/23 No documented travel since 02/15/23 Immunizations not reviewed VACCINE/DOSE DATE DATE DATE Flu 11/21/2019 12/27/2020 01/20/2022 Tetanus 06/25/2021 Pneumovax Shingles Allergies Compazine [prochlorperazine], Droperidol, and Tramadol Outpatient medications in system Current Outpatient Medications Medication Instructions acetaminophen (TYLENOL) 1,000 mg, Oral, Every 6 hours PRN cholecalciferol (VITAMIN D-3) 2,000 Units, Oral, Daily cyanocobalamin (VITAMIN B-12) 1,000 mcg, Oral, Daily DULoxetine (CYMBALTA) 60 mg, Oral, Daily, Do not crush or chew. famotidine (PEPCID) 20 mg, Oral, 2 times daily PRN Kloxxado 8 mg, Nasal, As needed LORazepam (ATIVAN) 2 mg, Oral, 2 times daily MELATONIN PO 10 mg, Oral, Nightly PRN nicotine (Nicoderm CQ) 14 MG/24HR patch 1 patch, Transdermal, Every 24 hours nicotine polacrilex (NICORETTE) 2 mg, Mouth/Throat, As needed ondansetron ODT (ZOFRAN-ODT) 4 mg, Oral, Every 8 hours PRN oxyCODONE (ROXICODONE) 20 mg, Oral, Every 6 hours PRN pantoprazole (PROTONIX) 40 mg, Oral, Daily, Do not crush, chew, or split. pregabalin (LYRICA) 300 mg, Oral, 2 times daily promethazine (PHENERGAN) 25 mg, Oral, Every 6 hours PRN promethazine (PHENERGAN) 25 mg, Rectal, Every 6 hours PRN promethazine (PHENERGAN) 25 mg, Oral, Every 6 hours PRN sucralfate (CARAFATE) 1 g, Oral, 4 times daily Medications ordered for hospitalization Review of Systems Constitutional: Negative for fever. HENT: Negative for sore throat. Eyes: Negative for visual disturbance. Respiratory: Negative for cough and shortness of breath. Cardiovascular: Negative for chest pain and palpitations. Gastrointestinal: Positive for abdominal pain, diarrhea, nausea and vomiting. Negative for abdominal distention and constipation. Endocrine: Negative for polyuria. Neurological: Negative for syncope, light-headedness and headaches. Physical Exam Constitutional: General: She is not in acute distress. Appearance: Normal appearance. She is not ill-appearing or diaphoretic. HENT: Head: Normocephalic and atraumatic. Eyes: Conjunctiva/sclera: Conjunctivae normal. Cardiovascular: Rate and Rhythm: Normal rate and regular rhythm. Heart sounds: Normal heart sounds. No murmur heard. Pulmonary: Effort: Pulmonary effort is normal. No respiratory distress. Breath sounds: Normal breath sounds. Abdominal: General: Bowel sounds are normal. There is no distension. Palpations: There is no mass. Tenderness: There is abdominal tenderness. There is no guarding or rebound. Hernia: No hernia is present. Musculoskeletal: General: No deformity or signs of injury. Right lower leg: No edema. Left lower leg: No edema. Skin: General: Skin is warm. Coloration: Skin is not jaundiced. Findings: No bruising, erythema or rash. Neurological: General: No focal deficit present. Mental Status: She is alert. Psychiatric: Mood and Affect: Mood normal. Last Recorded Vitals Blood pressure (!) 147/94, pulse 81, temperature 36.8 ??C (98.2 ??F), temperature source Oral, resp. rate 18, height 1.651 m (5' 5 ), weight 104 kg (230 lb), SpO2 98 %, not currently . Relevant Results Labs in last 18 hours CBC WBC 7.79 Hb 11.3 Plt 285 Hct 34.7 ANC 5.57 INR ??, PTT ??, Anti-Xa ?? BMP Na 140 Cl 106 BUN 10 Glu 106 (H) K 4.3 Co2 24 Cr 0.51 (L) Ca 9.5 iCa ?? Mg ??, Phos ?? Lactate ?? LFT AST 20 AlkPhos 104 T Prot 7.0 ALK 24 Bili 0.2 Alb ?? D.Bili ?? Assessment/Plan Principal Problem: Acute on chronic pancreatitis (CMS/HCC) Rosibel Gayle is a 37 y.o. year-old female who has a past medical history of Anxiety, Arthritis,Depression, Fibromyalgia, Gastric erosions, GERD (gastroesophageal reflux disease), Hypertension, Nicotine dependence, Obesity, and alcoholic Pancreatitis who presents to [facility] ED due to left upper quadrant abdominal pain with nausea, vomiting, and diarrhea. Acute on chronic pancreatitis with intractable pain, nausea, vomiting and diarrhea - Etiology: Flare up of acute on chronic pancreatitis pain vs functional pain/cyclic vomiting. Pt declined CT. - 2 weeks of intense epigastric and left upper quadrant abdominal pain with intractable nausea, vomiting and diarrhea. Multiple ED visits and hospital stays for the last 2 years for the same reason. - Lipase 35 - Based on chart review, recurrent and chronic pain could be due to chronic pancreatitis. But for this year, multiple CTs did not show any signs of inflammation and there are many documentation aboutfunctional pain and maladaptive behavior. - 03/14/23 CTAP: Borderline dilatation of the jejunal loops up to 4.1 cm without transition likely ileus. Mild thickening of the jejunal loops could be nonspecific or secondary to inflammatory process. - Was to follow up with pancreas clinic to evaluate for celiac plexus block by endoscopy (per GIrecs) however missed appt. - Discharged from pain clinic 2/2 UDS with THC - Plan to establish care with family medicine, appt next month PLAN - Fluids @ 150/hr - CLD, advance as tolerated - Pain control: scheduled tylenol, oxy 10mg q4h PRN, dilaudid 0.5mg IV q6h PRN for severe breakthrough pain - Zofran for nausea - To follow up with GI outpatient for block as this procedure is not performed inpatient -Encouraged cessation of cigarette smoking and marijuana smoking. - Continue home pancrelipase TID with meals Anxiety and Depression - continue home duloxetine and resume PRN ativan pending formal med rec Chronic Medical Conditions: Fibromyalgia - continue home lyrica GERD- Continue home PPI Insomnia- Continue melatonin HS for sleep Nicotine Dependence - NRT Marijuana use - Encourage cessation Obesity - BMI: 38.27, complicates all aspects of care Venous thromboembolism prophylaxis Patient on enoxaparin Diet Dietary Orders (From admission, onward) Start Ordered 03/18/23 1357 Adult diet Diet texture: Regular Diet effective now References: IDDSI Diet Texture Guide Question: Diet texture Answer: Regular 03/18/23 1401 Code Status Full Code Michelle Munoz MD Internal Medicine PGY-3 Pager# [phone] Cosigned by Claudio Landry MD at 03/19/2023 3:20 PM EST Associated attestation - Claudio Landry MD - 03/19/2023 3:20 PM EST I saw and evaluated the patient with the resident/fellow. I discussed the case with the resident/fellow and agree with the findings and plan as documented. Chronic Pancreatitis Abdominal Pain N/V/D - Continuous fluids - CLD - Pain regimen - Anti-emetics ordered - Continue home pancrelipase * ED Provider Notes - Neli Manuel PA - 03/18/2023 8:30 AM EST Images from the original note were not included. - HPI Chief Complaint Patient presents with Abdominal Pain This is a 37-year-old female with extensive past medical history including fibromyalgia, gastric and duodenal ulcers, chronic pancreatitis, heavy alcohol and THC use presenting for evaluation of worsening left upper quadrant and epigastric abdominal pain with nausea and vomiting. She has been seen several times for same complaint but notes symptoms just continued to worsen. She was recently discharged from her pain management clinic and is therefore not prescribed any home pain medications and feels she can not continue with this poor quality of life. She describes the pain as an alien tryingto come out of her intestines, severe enough that she is not sleeping and can not care for her children. Her mother flew in from [place] this week to help care for her due to severity of symptoms. She denies any blood in her stool or vomit. Pain worsens with any oral intake. Patient reports she is scheduled to establish care with a new primary care provider soon, as well as establish with GI. 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 She reports anaunt with history of GI cancer, was told all family members needed to be tested for the gene but isunable to specify the exact abnormality. Reports mother has history of ulcerative colitis. No data recorded Patient History Past Medical History: Diagnosis Date Anxiety Arthritis Depression Fibromyalgia Gastric erosions 04/19/2021 GERD (gastroesophageal reflux disease) Hypertension Intentional overdose ([facility]) 12/20/2021 Nicotine dependence Obesity Pancreatitis [...] of Systems Constitutional: Positive for appetite change. Gastrointestinal: Positive for abdominal pain, nausea and vomiting. Psychiatric/Behavioral: Positive for dysphoric mood and sleep disturbance. The patient is nervous/anxious. All other systems reviewed and are negative. Physical Exam ED Triage Vitals Temp Heart Rate Resp BP 03/18/23 0838 03/18/23 0838 03/18/23 0838 03/18/23 0838 36.7 ??C (98.1 ??F) 108 18 (!) 137/90 SpO2 Temp Source Heart Rate Source Patient Position 03/18/23 0838 03/18/23 0838 -- 03/18/23 1230 98 % Oral Lying BP Location FiO2 (%) 03/18/23 1230 -- Right arm Physical Exam Vitals and nursing note reviewed. Constitutional: General: She is not in acute distress. Appearance: Normal appearance. She is obese. She is not ill-appearing or toxic-appearing. HENT: Head: Normocephalic and atraumatic. Right Ear: External ear normal. Left Ear: External ear normal. Mouth/Throat: Mouth: Mucous membranes are moist. Eyes: Extraocular Movements: Extraocular movements intact. Cardiovascular: Rate and Rhythm: Normal rate. Pulmonary: Effort: Pulmonary effort is normal. No respiratory distress. Abdominal: General: There is no distension. Palpations: Abdomen is soft. Tenderness: There is abdominal tenderness in the epigastric area and left upper quadrant. Musculoskeletal: General: Normal range of motion. Cervical back: Normal range of motion and neck supple. Skin: General: Skin is warm and dry. Neurological: Mental Status: She is alert and oriented to person, place, and time. Psychiatric: Mood and Affect: Mood normal. Affect is tearful. Behavior: Behavior normal. ED Course & MDM Clinical Impressions as of 03/18/23 1805 Chronic upper abdominal pain Nausea - Medical Decision Making Care provided by Yasemin Manuel PA-C This is a 37-year-old female well known to this department with history of chronic abdominal pain, of chronic pancreatitis, gastric and duodenal ulcers, THC and alcohol abuse, anxiety and depression presenting for evaluation of worsening left upper quadrant and epigastric abdominal pain. This is her 7th emergency department visit in February. On initial exam, patient is hemodynamically stable, nontoxic in appearance, in no acute distress. She is tearful during examination, stating that she can not continue to live like this and can hardly care for herself at home. Her mother has recently flownin from out of state to help her care for her children. Her abdomen is soft with epigastric and left upper quadrant tenderness. I performed independent chart review, she was recently discharged from her pain management clinic due to positive THC in her drug screen therefore she currently does not have any regularly scheduled home pain medications. I do suspect this is contributing to her recent frequent visits. Differential also includes acute on chronic pancreatitis, gastric/duodenal ulcer, sphincter of Oddi dysfunction, gastroparesis, mesenteric ischemia, functional abdominal pain, among others. Labs are overall unremarkable including a normal lipase. Patient did have pain improvement with Phenergan and Dilaudid, however this did wear off in about 1 hour she requested more pain medications. We had a long lilibeth discussion about her condition, the fact that she is likely developed dependent opiate pain medications due to her chronic need, though this is likely stemming from underlyingpainful condition. Given her lack of current pain plan, I do not suspect that she will experience any improvement at home and given her history and multiple different prescribers recently, I do not feel it is appropriate to discharge her with a short course of narcotic pain medication. She needs to develop a pain management plan to decrease emergency department visits. I had an interactive discussion with the internal medicine service regarding this patient, they will admit her to their servicefor further monitoring and evaluation. I did discuss her case as well with the on-call GI fellow, though there is no need for emergent consultation in the Emergency Department, patient may require inpatient consultation during her stay. ED Prescriptions None Disposition Admit Admitting/Attending Physician: CLAUDIO LANDRY [[id number]] Provider Care Team: OMAR VILLALOBOS [facility] 1 [[id number]] Are they the primary team?: Yes [1] Sign Off Checklist Clinical Impression: Complete ED Disposition: Complete - Neli Manuel PA 03/18/23 5176 Cosigned by Agnes Cooley MD at 03/19/2023 11:33 AM EST Associated attestation - Agnes Cooley MD - 03/19/2023 11:33 AM EST The patient was seen only by Advanced Practice Provider (AJAY), and care was reviewed with me. * ED Triage Notes - Afia Jernigan RN - 03/18/2023 8:30 AM EST Patient states she has severe abdominal pain. Patient states the pain is constant in her epigastricarea. Patient states she also has a stabbing pain in the left side of her abdomen. documented in this encounter Plan of Treatment Scheduled Referrals Name Type Priority Associated Diagnoses Order Schedule Discharge Ambulatory referral to Gastroenterology Outpatient Referral Routine Acute on chronic pancreatitis (CMS/HCC) 1 Occurrences starting 03/21/2023 until 09/18/2024 documented as of this encounter Procedures Procedure Name Priority Date/Time Associated Diagnosis Comments COMPREHENSIVE METABOLIC PANEL, PLASMA Routine 03/25/2023 5:53 AM EST COMPREHENSIVE METABOLIC PANEL, PLASMA Routine 03/24/2023 3:00 AM EST COMPREHENSIVE METABOLIC PANEL, PLASMA Pending Discharge 03/23/2023 4:46 AM EST CBC W/O DIFFERENTIAL Pending Discharge 03/22/2023 4:41 AM EST COMPREHENSIVE METABOLIC PANEL, PLASMA Pending Discharge 03/22/2023 4:41 AM EST EGD Routine 03/20/2023 3:53 PM EST Chronic upper abdominal pain INSERT PERIPHERAL IV Routine 03/19/2023 3:23 AM EST DRUG ABUSE SCREEN, URINE STAT 03/19/2023 3:05 AM EST ECG ADULT STAT 03/18/2023 5:05 PM EST LACTATE, VENOUS STAT 03/18/2023 11:00 AM EST CBC WITH AUTO DIFFERENTIAL STAT 03/18/2023 11:00 AM EST TEST QUALITATIVE PLASMA STAT 03/18/2023 11:00 AM EST LIPASE, PLASMA STAT 03/18/2023 11:00 AM EST COMPREHENSIVE METABOLIC PANEL, PLASMA STAT 03/18/2023 11:00 AM EST documented in this encounter Results * (ABNORMAL) Comprehensive Metabolic Panel, Plasma (03/25/2023 5:53 AM EST) Glucose, Plasma 102(H) 74 - 99 mg/dL 03/25/2023 6:59 AM EST [facility] BUN, Plasma 11 7 - 21 mg/dL 03/25/2023 6:59 AM EST [facility] Creatinine, Plasma 0.84 0.60 - 1.10 mg/dL 03/25/2023 6:59 AM EST [facility] BUN/Creatinine Ratio 13 03/25/2023 6:59 AM EST [facility] Sodium, Plasma 136 136 - 145 mmol/L 03/25/2023 6:59 AM EST [facility] Potassium, Plasma 4.7 3.7 - 4.8 mmol/L 03/25/2023 6:59 AM EST [facility] Chloride, Plasma 101 97 - 107 mmol/L 03/25/2023 6:59 AM EST [facility] CO2, Plasma 26 22 - 29 mmol/L 03/25/2023 6:59 AM EST [facility] Anion Gap 9 6 - 16 mmol/L 03/25/2023 6:59 AM EST [facility] Total Calcium, Plasma 9.4 8.9 - 10.2 mg/dL 03/25/2023 6:59 AM EST [facility] Total Protein 6.2(L) 6.3 - 7.9 g/dL 03/25/2023 6:59 AM EST [facility] Albumin, Plasma 3.6 3.5 - 5.2 g/dL 03/25/2023 6:59 AM EST [facility] AST, Plasma 53(H) 10 - 35 U/L 03/25/2023 6:59 AM EST [facility] ALT, Plasma 54(H) 10 - 35 U/L 03/25/2023 6:59 AM EST [facility] Alkaline Phosphatase, Plasma 126(H) 35 - 104 U/L 03/25/2023 6:59 AM EST [facility] Total Bilirubin, Plasma <0.2(L) 0.2 - 1.1 mg/dL 03/25/2023 6:59 AM EST [facility] eGFRcr 92.5 mL/min/1.7 3m*2 03/25/2023 6:59 AM EST [facility] Comment:Reported eGFRcr in m L/min/1.73m2 is based the CKD-EPI 2020 equation that does not use a race coefficient. Blood Venous blood specimen / Unknown Venipuncture / Unknown 03/25/2023 5:53 AM EST 03/25/2023 6:17 AM EST us Claudio Landry MD LAB BLOOD ORDERABLES Final Resul t [facility] [address] [place] [address] * (ABNORMAL) Comprehensive Metabolic Panel, Plasma (03/24/2023 3:00 AM EST) Glucose, Plasma 115(H) 74 - 99 mg/dL 03/24/2023 3:38 AM EST [facility] BUN, Plasma 10 7 - 21 mg/dL 03/24/2023 3:38 AM EST [facility] Creatinine, Plasma 0.90 0.60 - 1.10 mg/dL 03/24/2023 3:38 AM EST [facility] BUN/Creatinine Ratio 11 03/24/2023 3:38 AM EST [facility] Sodium, Plasma 132(L) 136 - 145 mmol/L 03/24/2023 3:38 AM EST [facility] Potassium, Plasma 4.4 3.7 - 4.8 mmol/L 03/24/2023 3:38 AM EST [facility] Chloride, Plasma 99 97 - 107 mmol/L 03/24/2023 3:38 AM EST [facility] CO2, Plasma 27 22 - 29 mmol/L 03/24/2023 3:38 AM EST [facility] Anion Gap 6 6 - 16 mmol/L 03/24/2023 3:38 AM EST [facility] Total Calcium, Plasma 9.1 8.9 - 10.2 mg/dL 03/24/2023 3:38 AM EST [facility] Total Protein 6.2(L) 6.3 - 7.9 g/dL 03/24/2023 3:38 AM EST [facility] Albumin, Plasma 3.8 3.5 - 5.2 g/dL 03/24/2023 3:38 AM EST [facility] AST, Plasma 25 10 - 35 U/L 03/24/2023 3:38 AM EST [facility] ALT, Plasma 52(H) 10 - 35 U/L 03/24/2023 3:38 AM EST [facility] Alkaline Phosphatase, Plasma 118(H) 35 - 104 U/L 03/24/2023 3:38 AM EST [facility] Total Bilirubin, Plasma 0.3 0.2 - 1.1 mg/dL 03/24/2023 3:38 AM EST [facility] eGFRcr 85.1 mL/min/1.7 3m*2 03/24/2023 3:38 AM [facility] Comment:Reported eGFRcr in m L/min/1.73m2 is based the CKD-EPI 2020 equation that does not use a race coefficient. Blood Venous blood specimen / Unknown Venipuncture / Unknown 03/24/2023 3:00 AM EST 03/24/2023 3:05 AM EST us Claudio Landry MD LAB BLOOD ORDERABLES Final Resul t [facility] [address] [place] [id number] * (ABNORMAL) Comprehensive metabolic panel (03/23/2023 4:46 AM EST) Glucose, Plasma 99 74 - 99 mg/dL 03/23/2023 5:33 AM EST [facility] BUN, Plasma 6(L) 7 - 21 mg/dL 03/23/2023 5:33 AM EST [facility] Creatinine, Plasma 0.84 0.60 - 1.10 mg/dL 03/23/2023 5:33 AM EST [facility] BUN/Creatinine Ratio 7 03/23/2023 5:33 AM EST [facility] Sodium, Plasma 138 136 - 145 mmol/L 03/23/2023 5:33 AM EST [facility] Potassium, Plasma 4.6 3.7 - 4.8 mmol/L 03/23/2023 5:33 AM EST [facility] Chloride, Plasma 102 97 - 107 mmol/L 03/23/2023 5:33 AM EST [facility] CO2, Plasma 27 22 - 29 mmol/L 03/23/2023 5:33 AM EST [facility] Anion Gap 9 6 - 16 mmol/L 03/23/2023 5:33 AM EST [facility] Total Calcium, Plasma 9.1 8.9 - 10.2 mg/dL 03/23/2023 5:33 AM EST [facility] Total Protein 6.3 6.3 - 7.9 g/dL 03/23/2023 5:33 AM EST [facility] Albumin, Plasma 3.7 3.5 - 5.2 g/dL 03/23/2023 5:33 AM EST [facility] AST, Plasma 46(H) 10 - 35 U/L 03/23/2023 5:33 AM EST [facility] ALT, Plasma 72(H) 10 - 35 U/L 03/23/2023 5:33 AM EST [facility] Alkaline Phosphatase, Plasma 115(H) 35 - 104 U/L 03/23/2023 5:33 AM EST [facility] Total Bilirubin, Plasma 0.3 0.2 - 1.1 mg/dL 03/23/2023 5:33 AM EST [facility] eGFRcr 92.5 mL/min/1.7 3m*2 03/23/2023 5:33 AM EST [facility] Comment:Reported eGFRcr in m L/min/1.73m2 is based the CKD-EPI 2020 equation that does not use a race coefficient. Blood Venous blood specimen / Unknown Venipuncture / Unknown 03/23/2023 4:46 AM EST 03/23/2023 4:50 AM EST us Claudio Landry MD LAB BLOOD ORDERABLES Final Resul t [facility] [address] [place] [id number] * (ABNORMAL) Comprehensive Metabolic Panel, Plasma (03/22/2023 4:41 AM EST) Glucose, Plasma 105(H) 74 - 99 mg/dL 03/22/2023 5:07 AM [facility] BUN, Plasma 4(L) 7 - 21 mg/dL 03/22/2023 5:07 AM [facility] Creatinine, Plasma 0.70 0.60 - 1.10 mg/dL 03/22/2023 5:07 AM [facility] BUN/Creatinine Ratio 6 03/22/2023 5:07 AM [facility] Sodium, Plasma 137 136 - 145 mmol/L 03/22/2023 5:07 AM [facility] Potassium, Plasma 3.8 3.7 - 4.8 mmol/L 03/22/2023 5:07 AM [facility] Chloride, Plasma 100 97 - 107 mmol/L 03/22/2023 5:07 AM [facility] CO2, Plasma 27 22 - 29 mmol/L 03/22/2023 5:07 AM [facility] Anion Gap 10 6 - 16 mmol/L 03/22/2023 5:07 AM [facility] Total Calcium, Plasma 9.0 8.9 - 10.2 mg/dL 03/22/2023 5:07 AM [facility] Total Protein 6.6 6.3 - 7.9 g/dL 03/22/2023 5:07 AM [facility] Albumin, Plasma 3.9 3.5 - 5.2 g/dL 03/22/2023 5:07 AM [facility] AST, Plasma 100(H) 10 - 35 U/L 03/22/2023 5:07 AM [facility] ALT, Plasma 81(H) 10 - 35 U/L 03/22/2023 5:07 AM [facility] Alkaline Phosphatase, Plasma 115(H) 35 - 104 U/L 03/22/2023 5:07 AM [facility] Total Bilirubin, Plasma 0.4 0.2 - 1.1 mg/dL 03/22/2023 5:07 AM [facility] eGFRcr 115.1 mL/min/1.7 3m*2 03/22/2023 5:07 AM [facility] Comment:Reported eGFRcr in m L/min/1.73m2 is based the CKD-EPI 2020 equation that does not use a race coefficient. Blood Venous blood specimen / Unknown Venipuncture / Unknown 03/22/2023 4:41 AM EST 03/22/2023 4:45 AM EST us Claudio Landry MD LAB BLOOD ORDERABLES Final Resul t [facility] [address] [place] [id number] * (ABNORMAL) CBC W/O Differential (03/22/2023 4:41 AM EST) WBC Count 4.11 3.70 - 10.30 10*3/uL LAB HEMATOLOGY METHOD 03/22/2023 4:47 AM EST [facility] RBC Count 4.09 3.90 - 5.20 10*6/uL LAB HEMATOLOGY METHOD 03/22/2023 4:47 AM EST [facility] HGB 10.7(L) 11.2 - 15.7 g/dL LAB HEMATOLOGY METHOD 03/22/2023 4:47 AM EST [facility] HCT 33.3(L) 34.0 - 45.0 % LAB HEMATOLOGY METHOD 03/22/2023 4:47 AM EST [facility] Platelet Count 294 155 - 369 10*3/uL LAB HEMATOLOGY METHOD 03/22/2023 4:47 AM EST [facility] MCV 81 79 - 98 fL LAB HEMATOLOGY METHOD 03/22/2023 4:47 AM EST [facility] MCH 26.2 26.0 - 32.0 pg LAB HEMATOLOGY METHOD 03/22/2023 4:47 AM EST [facility] MCHC 32.1 30.7 - 35.5 g/dL LAB HEMATOLOGY METHOD 03/22/2023 4:47 AM EST [facility] RDW 15.9(H) 11.5 - 14.5 % LAB HEMATOLOGY METHOD 03/22/2023 4:47 AM EST [facility] MPV 9.3 8.8 - 12.5 fL LAB HEMATOLOGY METHOD 03/22/2023 4:47 AM EST [facility] nRBC 0.0 <=0.0 per 100 WBCs LAB HEMATOLOGY METHOD 03/22/2023 4:47 AM EST [facility] Blood Venous blood specimen / Unknown Venipuncture / Unknown 03/22/2023 4:41 AM EST 03/22/2023 4:45 AM EST us Claudio Landry MD LAB BLOOD ORDERABLES Final Resul t [facility] [address] [place] [address] * EGD JOSE CANALES; 03/20/2023 (03/20/2023 3:53 PM EST) Anatomical Region Laterality Modality Endoscopy Narrative 03/20/2023 4:00 PM EST Table formatting from the original result was not included. Impression: Moderate abnormal mucosa in the middle third of the esophagus and lower third of the esophagus The mucosa of stomach and duodenum appeared normal. Leftovers in the stomach Impaired stomach motility Recommendations Continue with current medication Add treatment with Reglan + Fluconazol. Indication Chronic upper abdominal pain Medications See anesthesia record for anesthesia administered medications. Staff Staff Role Dayanara Haskins Endo Nurse Jose Canales MD Proceduralist Krissy Spencer Endo Nurse Jassi Iverson MD Anesthesiologist Francesca Langston, Cele Matute CRNA Endo [employer] Preprocedure A history and physical has been performed, and patient medication allergies have been reviewed. The patient's tolerance of previous anesthesia has been reviewed. The risks and benefits of the procedure and the sedation options and risks were discussed with the patient. All questions were answered and informed consent obtained. Details of the Procedure The patient underwent monitored anesthesia care, which was administered by an anesthesia professional. The patient's blood pressure, heart rate, level of consciousness, oxygen and respirations were monitored throughout the procedure. The scope was introduced through the mouth and advanced to the second part of the duodenum. Retroflexion was performed in the cardia. The patient experienced no blood loss. The procedure was not difficult. The patient tolerated the procedure well. There were no apparent adverse events. Attestation I was present for the entire procedure Findings Moderate abnormal mucosa in the middle third of the esophagus and lower third of the esophagus The mucosa of stomach and duodenum appeared normal. Impaired motility of the stomach. us Claudio Landry MD GI PROCEDURE ORDERABLES Final Re sult * PERIPHERAL IV (SMARTFORM LINK) (03/19/2023 3:23 AM EST) Narrative Leny Gutierrez RN - 03/19/2023 3:23 AM EST Leny Gutierrez, RN ? 03/19/2023 ??3:24 AM Insert peripheral IV Performed by: Leny Gutierrez, RN Authorized by: Claudio Landry MD ?? Hand hygiene: Hand hygiene performed prior to insertion ?? Inserted using aseptic techniques: Yes ?? Preparation: ??Skin prepped with chg Orientation: ??Left Location: ??Wrist Catheter placed: ??Peripheral IV Catheter size: ??20g/1.16in Line Technique: ??Ultrasound Guidance Number of attempts: ??1 IV flushes: ??Without difficulty and positive blood return noted and IV luer locked Patient tolerance: ??Patient tolerated the procedure well, there were no complications and age appropriate response IV site covered with: ??Transparent semipermeable dressing Claudio Landry MD IV THERAPY ORDERABLES Final Resu lt * Drug abuse screen (03/19/2023 3:05 AM EST) Pathologist [facility] Amphetamine Screen Urine Negative Cutoff: 500 ng/mL 03/19/2023 4:20 AM EST [facility] Benzodiazepines Screen Urine Presumptive positive. Confirmation by LC-MS/MS to follow. Cutoff: 200 ng/mL 03/19/2023 4:20 AM EST [facility] Cannabinoid Screen Urine Presumptive positive. Confirmation by LC-MS/MS to follow. Cutoff: 50 ng/mL 03/19/2023 4:20 AM EST [facility] Cocaine Screen Urine Negative Cutoff: 300 ng/mL 03/19/2023 4:20 AM EST [facility] Barbiturate Screen Urine Presumptive positive. Confirmation by LC-MS/MS to follow. Cutoff: 200 ng/mL 03/19/2023 4:20 AM EST [facility] Opiate Screen Urine Negative Cutoff: 300 ng/mL 03/19/2023 4:20 AM EST [facility] Methadone Screen Urine Negative Cutoff: 300 ng/mL 03/19/2023 4:20 AM EST [facility] Buprenorphine Screen Urine Negative Cutoff: 10 ng/mL 03/19/2023 4:20 AM EST [facility] Fentanyl Screen Urine Negative Cutoff: 1 ng/mL 03/19/2023 4:20 AM EST [facility] Oxycodone Screen Urine Presumptive positive. Confirmation by LC-MS/MS to follow. Cutoff: 100 ng/mL 03/19/2023 4:20 AM EST [facility] Urine Urine specimen obtained by clean catch procedure / Unknown Non-blood Collection / Unknown 03/19/2023 3:05 AM EST 03/19/2023 3:15 AM EST [facility] URINE ORDERABLES Carolina macias Result Performing Organization Address City/[facility]/ZIP Co de Phone Number [facility] [address] [place] [address] * ECG Adult (03/18/2023 5:05 PM EST) EKG DIAGNOSIS CLASS Abnormal MUSE ECG Ventricular Rate 67 BPM MUSE ECG Atrial Rate 67 BPM MUSE ECG ME Interval 130 ms MUSE ECG QRSD Interval 82 ms MUSE ECG QT Interval 400 ms MUSE ECG QTC Interval 422 ms MUSE ECG P [place] 17 degrees MUSE ECG R [place] 18 degrees MUSE ECG T Wave [place] 12 degrees MUSE ECG Diagnosis Normal sinus rhythm MUSE ECG Diagnosis with sinus arrhythmia MUSE ECG Diagnosis Cannot rule out MUSE ECG Diagnosis Anterior infarct MUSE ECG Diagnosis , age undetermined MUSE ECG Diagnosis Abnormal ECG MUSE ECG Diagnosis Confirmed by Ankur Muniz ([id number]) on 03/19/2023 10:57:10 AM MUSE ECG 03/18/2023 5:05 PM EST 03/19/2023 10:57 AM EST Claudio Landry MD ECG ORDERABLES Final Result MUSE ECG * (ABNORMAL) CBC w/diff (03/18/2023 11:00 AM EST) WBC Count 7.79 3.70 - 10.30 10*3/uL LAB HEMATOLOGY METHOD 03/18/2023 11:12 AM EST [facility] RBC Count 4.31 3.90 - 5.20 10*6/uL LAB HEMATOLOGY METHOD 03/18/2023 11:12 AM [facility] HGB 11.3 11.2 - 15.7 g/dL LAB HEMATOLOGY METHOD 03/18/2023 11:12 AM EST [facility] HCT 34.7 34.0 - 45.0 % LAB HEMATOLOGY METHOD 03/18/2023 11:12 AM [facility] Platelet Count 285 155 - 369 10*3/uL LAB HEMATOLOGY METHOD 03/18/2023 11:12 AM [facility] MCV 81 79 - 98 fL LAB HEMATOLOGY METHOD 03/18/2023 11:12 AM [facility] MCH 26.2 26.0 - 32.0 pg LAB HEMATOLOGY METHOD 03/18/2023 11:12 AM [facility] MCHC 32.6 30.7 - 35.5 g/dL LAB HEMATOLOGY METHOD 03/18/2023 11:12 AM [facility] RDW 15.8(H) 11.5 - 14.5 % LAB HEMATOLOGY METHOD 03/18/2023 11:12 AM [facility] MPV 9.6 8.8 - 12.5 fL LAB HEMATOLOGY METHOD 03/18/2023 11:12 AM [facility] nRBC 0.0 <=0.0 per 100 WBCs LAB HEMATOLOGY METHOD 03/18/2023 11:12 AM [facility] Differential Type Automated LAB HEMATOLOGY METHOD 03/18/2023 11:12 AM [facility] Neutrophils % 71.0 % LAB HEMATOLOGY METHOD 03/18/2023 11:12 AM [facility] Lymphocytes % 17.0 % LAB HEMATOLOGY METHOD 03/18/2023 11:12 AM [facility] Monocytes % 5.0 % LAB HEMATOLOGY METHOD 03/18/2023 11:12 AM [facility] Eosinophils % 1.0 % LAB HEMATOLOGY METHOD 03/18/2023 11:12 AM [facility] Basophils % 1.0 % LAB HEMATOLOGY METHOD 03/18/2023 11:12 AM EST [facility] Immature Granulocytes % 5.0 % LAB HEMATOLOGY METHOD 03/18/2023 11:12 AM [facility] Neutrophils Absolute 5.57 1.60 - 6.10 10*3/uL LAB HEMATOLOGY METHOD 03/18/2023 11:12 AM EST [facility] Lymphocytes Absolute 1.31 1.20 - 3.90 10*3/uL LAB HEMATOLOGY METHOD 03/18/2023 11:12 AM EST [facility] Monocytes Absolute 0.39 0.30 - 0.90 10*3/uL LAB HEMATOLOGY METHOD 03/18/2023 11:12 AM EST [facility] Eosinophils Absolute 0.11 0.00 - 0.50 10*3/uL LAB HEMATOLOGY METHOD 03/18/2023 11:12 AM EST [facility] Basophils Absolute 0.05 0.00 - 0.10 10*3/uL LAB HEMATOLOGY METHOD 03/18/2023 11:12 AM EST [facility] Immature Granulocytes Absolute 0.36(H) 0.00 - 0.06 10*3/uL LAB HEMATOLOGY METHOD 03/18/2023 11:12 AM EST [facility] Blood Venous blood specimen / Unknown Venipuncture / Unknown 03/18/2023 11:00 AM EST 03/18/2023 11:09 AM EST Narrative [facility] - 03/18/2023 11:12 AM EST Therapeutic decision making should be based on absolute values, rather than percentages. [facility] BLOOD ORDERABLES Carolina l Result [facility] [address] [place] [address] * hCG qualitative (03/18/2023 11:00 AM EST) Pathologist [facility] Test Negative Negative 03/18/2023 11:55 AM EST [facility] Blood Venous blood specimen / Unknown Venipuncture / Unknown 03/18/2023 11:00 AM EST 03/18/2023 11:09 AM EST Narrative [facility] - 03/18/2023 11:55 AM EST Reference Range: Males and non- females: Negative. [facility] BLOOD ORDERABLES Carolina l Result [facility] [address] [place] [address] * Lactic acid, venous (03/18/2023 11:00 AM EST) Lactate, Venous, Whole Blood 1.8 0.5 - 2.2 mmol/L LAB HEMATOLOGY METHOD 03/18/2023 11:12 AM [facility] Blood Venous blood specimen / Unknown Venipuncture / Unknown 03/18/2023 11:00 AM EST 03/18/2023 11:09 AM EST us Neli [facility] BLOOD ORDERABLES Carolina l Result Performing Organization Address City/State/[facility] Phone Number [facility] [address] [place] [address] * (ABNORMAL) CMP (03/18/2023 11:00 AM EST) Glucose, Plasma 106(H) 74 - 99 mg/dL 03/18/2023 11:55 AM [facility] BUN, Plasma 10 7 - 21 mg/dL 03/18/2023 11:55 AM [facility] Creatinine, Plasma 0.51(L) 0.60 - 1.10 mg/dL 03/18/2023 11:55 AM [facility] BUN/Creatinine Ratio 20 03/18/2023 11:55 AM [facility] Sodium, Plasma 140 136 - 145 mmol/L 03/18/2023 11:55 AM [facility] Potassium, Plasma 4.3 3.7 - 4.8 mmol/L 03/18/2023 11:55 AM [facility] Chloride, Plasma 106 97 - 107 mmol/L 03/18/2023 11:55 AM [facility] CO2, Plasma 24 22 - 29 mmol/L 03/18/2023 11:55 AM [facility] Anion Gap 10 6 - 16 mmol/L 03/18/2023 11:55 AM [facility] Total Calcium, Plasma 9.5 8.9 - 10.2 mg/dL 03/18/2023 11:55 AM [facility] Total Protein 7.0 6.3 - 7.9 g/dL 03/18/2023 11:55 AM [facility] Albumin, Plasma 4.1 3.5 - 5.2 g/dL 03/18/2023 11:55 AM [facility] AST, Plasma 20 10 - 35 U/L 03/18/2023 11:55 AM [facility] ALT, Plasma 24 10 - 35 U/L 03/18/2023 11:55 AM EST [facility] Alkaline Phosphatase, Plasma 104 35 - 104 U/L 03/18/2023 11:55 AM EST [facility] Total Bilirubin, Plasma 0.2 0.2 - 1.1 mg/dL 03/18/2023 11:55 AM EST [facility] eGFRcr 124.2 mL/min/1.7 3m*2 03/18/2023 11:55 AM EST [facility] Comment:Reported eGFRcr in m L/min/1.73m2 is based the CKD-EPI 2020 equation that does not use a race coefficient. Blood Venous blood specimen / Unknown Venipuncture / Unknown 03/18/2023 11:00 AM EST 03/18/2023 11:09 AM EST [facility] BLOOD ORDERABLES Carolina l Result Performing Organization Address City/[facility]/ZIP Co de Phone Number [facility] [address] [place] [address] * Lipase (03/18/2023 11:00 AM EST) Lipase, Plasma 35 19 - 63 U/L 03/18/2023 11:55 AM EST [facility] Blood Venous blood specimen / Unknown Venipuncture / Unknown 03/18/2023 11:00 AM EST 03/18/2023 11:09 AM EST [facility] BLOOD ORDERABLES Carolina l Result Performing Organization Address City/[facility] Co de Phone Number [facility] [address] [place] [address] documented in this encounter Visit Diagnoses Diagnosis Acute on chronic pancreatitis (CMS/HCC)- Primary Chronic upper abdominal pain Nausea Nausea alone Acute on chronic pancreatitis (CMS/HCC) Class III obesity with body mass index (BMI) of 40.0 or higher (CMS/HCC) documented in this encounter Administered Medications Inactive Administered Medications - up to 3 most recent administrations Medication Order MAR Action Action Date Dose Rate Site acetaminophen (Tylenol) tablet 650 mg 650 mg, Oral, Every 6 hours scheduled, First dose on Thu03/18/23 at 1405, Until Discontinued, Routine Given 03/22/2023 12:04 PM EST 650 mg Given 03/22/2023 4:04 AM EST 650 mg Given 03/21/2023 4:42 PM EST 650 mg acetaminophen (Tylenol) tablet 650 mg 650 mg, Oral, Every 6 hours PRN, Starting on Thu03/22/23 at 1615, Until Thu03/23/23 at 0742, Routine, mild pain, headaches, fever Given 03/22/2023 5:54 PM EST 6 50 mg acetaminophen (Tylenol) tablet 650 mg 650 mg, Oral, Every 6 hours PRN, Starting on Thu03/23/23 at 0750, Until Thu03/25/23 at 1341, Routine, mild pain, moderate pain, fever, headaches Given 03/25/2023 6:44 AM EST 650 mg Given 03/24/2023 9:38 AM EST 650 mg Given 03/23/2023 4:00 PM EST 650 mg cloNIDine (Catapres) tablet 0.1 mg 0.1 mg, Oral, Every 6 hours PRN, Starting on Thu03/19/23 at 1047, Until Thu03/25/23 at 1341, Routine, Clinical Opioid Withdrawal Score (COWS) > 8 dicyclomine (Bentyl) capsule 10 mg 10 mg, Oral, Every 6 hours PRN, Starting on Annabel 03/19/23 at 1047, Until Thu03/25/23 at 1341, Routine, abdominal spasms Given 03/24/2023 9:38 AM EST 10 mg DULoxetine (Cymbalta) DR capsule 60 mg 60 mg, Oral, Daily, First dose on Thu03/18/23 at 1430, Until Discontinued, Routine Given 03/25/2023 8:04 AM EST 60 mg Given 03/24/2023 8:25 AM EST 60 mg Given 03/23/2023 10:04 AM EST 60 mg enoxaparin (Lovenox) syringe 40 mg 40 mg, Subcutaneous, Daily, First dose on Thu03/18/23 at 1405, Until Discontinued, Routine Given 03/25/2023 8:04 AM EST 40 mg Left Lower Abdomen Given 03/24/2023 8:24 AM EST 40 mg Ri ght Lower Abdomen Given 03/20/2023 9:29 AM EST 40 mg Le ft Lower Abdomen famotidine (Pepcid) tablet 20 mg 20 mg, Oral, 2 times daily PRN, Starting on Thu03/18/23 at 1424, Until Thu03/25/23 at 1341, Routine, heartburn Given 03/25/2023 6:44 AM EST 20 mg Given 03/24/2023 8:42 PM EST 20 mg Given 03/24/2023 9:38 AM EST 20 mg fluconazole (Diflucan) tablet 200 mg 200 mg, Oral, Daily, First dose on Thu03/20/23 at 1845, Until Discontinued, Routine Given 03/23/2023 10:0 4 AM EST 200 mg Given 03/22/2023 8:39 AM EST 200 mg Given 03/21/2023 8:45 AM EST 200 mg fluconazole (Diflucan) tablet 200 mg 200 mg, Oral, Once, 1 dose, On Thu03/21/23 at 1245, Routine Given 03/21/2023 12:52 PM EST 200 mg fluconazole (Diflucan) tablet 300 mg 300 mg, Oral, Daily, 10 doses, First dose (after last modification) on Thu03/24/23 at 0900, Last dose on Thu04/02/23 at 0900, Routine Given 03/25/2023 8:05 AM EST 300 mg Given 03/24/2023 8:25 AM EST 300 mg gi cocktail oral solution 30 mL 30 mL, Oral, Once, 1 dose, On Thu03/21/23 at 1330, Routine Given 03/21/2023 1:26 PM EST 30 mL gi cocktail oral solution 30 mL 30 mL, Oral, 4 times daily PRN, Starting on Thu03/24/23 at 0726, Until Thu03/25/23 at 1341, Routine, heartburn, indigestion, cramping Given 03/24/2023 6:36 PM EST 30 mL Given 03/24/2023 8:25 AM EST 30 mL HYDROmorphone (Dilaudid) injection 0.5 mg 0.5 mg, Intravenous, Every 6 hours PRN, Starting on Thu03/18/23 at 1400, Until Thu03/21/23 at 0705, Routine, severe pain, Severe pain not responsive to PO meds Given 03/21/2023 5:19 AM EST 0.5 mg Given 03/20/2023 11:05 PM EST 0.5 mg Given 03/20/2023 4:54 PM EST 0.5 mg HYDROmorphone (Dilaudid) injection 1 mg 1 mg, Intravenous, Once, 1 dose, On Thu03/18/23 at 0955, STAT Given 03/18/2023 11:02 AM EST 1 mg HYDROmorphone (Dilaudid) injection 1 mg 1 mg, Intravenous, Once, 1 dose, On Thu03/18/23 at 1250, STAT Given 03/18/2023 1:08 PM EST 1 mg hydrOXYzine pamoate (Vistaril) capsule 25 mg 25 mg, Oral, Every 6 hours PRN, Starting on Thu03/18/23 at 2202, Until Thu03/25/23 at 1341, Routine, anxiety Given 03/24/2023 8:42 PM EST 25 mg Given 03/22/2023 4:04 AM EST 25 mg Given 03/21/2023 8:22 PM EST 25 mg ibuprofen tablet 400 mg 400 mg, Oral, Every 8 hours PRN, Starting on 03/21/23 at 1308, Until Thu03/22/23 at 1303, Routine, mild pain Given 03/21/2023 3:11 PM EST 400 mg ibuprofen tablet 400 mg 400 mg, Oral, Every 6 hours PRN, Starting on Thu03/24/23 at 1301, Until Thu03/25/23 at 1341, Routine, mild pain Given 03/24/2023 6:36 PM EST 400 mg ketorolac (Toradol) injection 15 mg 15 mg, Intravenous, Every 6 hours PRN, Starting on Thu03/22/23 at 1303, Until Thu03/24/23 at 1301, Routine, severe pain Given 03/24/2023 12:50 PM EST 15 mg Given 03/23/2023 8:14 PM EST 15 mg Given 03/23/2023 7:41 AM EST 15 mg lactated Ringer's infusion 1,000 mL 1,000 mL, Intravenous, Once, 1 dose, On Thu03/18/23 at 0955, STAT New Bag 03/18/2023 11:01 AM EST 1,000 mL lactated Ringer's infusion 150 mL/hr, Intravenous, Continuous, Starting on Thu03/18/23 at 1405, Until Annabel 03/19/23 at 0038, Routine New Bag 03/18/2023 2:39 PM EST 150 mL/hr 150 mL /hr LORazepam (Ativan) tablet 1 mg 1 mg, Oral, Once as needed, 1 dose, Starting on Thu03/20/23 at 1030, Until Thu03/20/23 at 1303, Routine, anxiety Given 03/20/2023 1:03 PM EST 1 mg LORazepam (Ativan) tablet 2 mg 2 mg, Oral, 2 times daily PRN, Starting on Thu03/19/23 at 0859, Until Thu03/25/23 at 1341, Routine, anxiety Given 03/25/2023 5:33 AM EST 2 mg Given 03/24/2023 4:50 PM EST 2 mg Given 03/23/2023 8:14 PM EST 2 mg melatonin tablet 3 mg 3 mg, Oral, Nightly PRN, Starting on Thu03/18/23 at 1356, Until Thu03/25/23 at 1341, Routine, sleep Given 03/21/2023 9:44 PM EST 3 mg Given 03/20/2023 11:05 PM EST 3 mg Given 03/19/2023 10:23 PM EST 3 mg metoclopramide (Reglan) tablet 5 mg 5 mg, Oral, 3 times daily before meals, First dose on Thu03/20/23 at 1845, Until Discontinued, Routine Given 03/25/2023 8:04 AM EST 5 mg Given 03/24/2023 4:50 PM EST 5 mg Given 03/24/2023 12:50 PM EST 5 mg nicotine (Nicoderm CQ) 21 MG/24HR patch 1 patch 1 patch, Transdermal, Daily, 42 doses, First dose on Thu03/18/23 at 1405, Last dose on Thu04/28/23 at 0900, Routine Medication Applied 03/25/2023 8:05 AM EST 1 patch Left Arm Medication Applied 03/24/2023 8:22 AM EST 1 patch Right Arm Medication Applied 03/23/2023 10:04 AM EST 1 patch Left Arm ondansetron (Zofran) injection 4 mg 4 mg, Intravenous, Once, 1 dose, On Thu03/18/23 at 1250, STAT Given 03/18/2023 1:09 PM EST 4 mg ondansetron ODT (Zofran-ODT) disintegrating tablet 4 mg 4 mg, Oral, Every 6 hours PRN, Starting on Thu03/18/23 at 1356, Until Thu03/25/23 at 1341, Routine, nausea, vomiting Given 03/25/2023 5:34 AM EST 4 mg Given 03/24/2023 4:50 PM EST 4 mg Given 03/24/2023 8:25 AM EST 4 mg ondansetron ODT (Zofran-ODT) disintegrating tablet 4 mg 4 mg, Oral, Once, 1 dose, On Thu03/20/23 at 1330, Routine Given 03/20/2023 1:15 PM EST 4 mg oxyCODONE (Roxicodone) immediate release tablet 10 mg 10 mg, Oral, Every 6 hours PRN, Starting on Thu03/18/23 at 1359, Until Thu03/18/23 at 2037, Routine, severe pain, severe breakthrough pain not responsive to non-narcotic agents Given 03/18/2023 8:21 PM EST 10 mg Given 03/18/2023 2:36 PM EST 10 mg oxyCODONE (Roxicodone) immediate release tablet 10 mg 10 mg, Oral, Every 4 hours PRN, Starting on Thu03/18/23 at 2045, Until Thu03/19/23 at 1145, Routine, severe pain, severe breakthrough pain not responsive to non-narcotic agents Given 03/19/2023 9:29 AM EST 10 mg Given 03/19/2023 5:17 AM EST 10 mg Given 03/19/2023 1:00 AM EST 10 mg oxyCODONE (Roxicodone) immediate release tablet 15 mg 15 mg, Oral, Every 4 hours PRN, Starting on Thu03/19/23 at 1145, Until Thu03/22/23 at 1303, Routine, severe pain, severe breakthrough pain not responsive to non-narcotic agents Given 03/22/2023 12:04 PM EST 15 mg Given 03/22/2023 8:40 AM EST 15 mg Given 03/22/2023 4:04 AM EST 15 mg oxyCODONE (Roxicodone) immediate release tablet 20 mg 20 mg, Oral, Every 6 hours PRN, Starting on Thu03/22/23 at 1600, Until Thu03/24/23 at 1053, Routine, severe pain, severe breakthrough pain not responsive to non-narcotic agents Given 03/24/2023 8:25 AM EST 20 mg Given 03/24/2023 1:39 AM EST 20 mg Given 03/23/2023 4:01 PM EST 20 mg oxyCODONE (Roxicodone) immediate release tablet 20 mg 20 mg, Oral, Every 8 hours PRN, Starting on Thu03/24/23 at 1100, Until Thu03/25/23 at 1341, Routine, severe pain, severe breakthrough pain not responsive to non-narcotic agents Given 03/25/2023 5:34 AM EST 20 mg Given 03/24/2023 4:50 PM EST 20 mg oxyCODONE (Roxicodone) immediate release tablet 20 mg 20 mg, Oral, Once as needed, 1 dose, Starting on Thu03/24/23 at 2300, Until Thu03/25/23 at 1341, Routine, severe pain pancrelipase (Creon) 6000 unit capsule 1 capsule, Oral, 3 times daily with meals, First dose on Thu03/18/23 at 1430, Until Discontinued, Routine Given 03/25/2023 8:04 AM EST 1 capsule Given 03/24/2023 4:50 PM EST 1 capsule Given 03/24/2023 12:50 PM EST 1 capsule pantoprazole (Protonix) EC tablet 40 mg 40 mg, Oral, Daily, First dose on Thu03/18/23 at 1430, Until Discontinued, Routine Given 03/25/2023 8:05 AM EST 40 mg Given 03/24/2023 8:25 AM EST 40 mg Given 03/23/2023 10:04 AM EST 40 mg polyethylene glycol (Miralax) packet 17 g 17 g, Oral, Daily, First dose on Thu03/18/23 at 1405, Until Discontinued, Routine Given 03/25/2023 8:05 AM EST 17 g Given 03/24/2023 8:23 AM EST 17 g Given 03/23/2023 10:04 AM EST 17 g pregabalin (Lyrica) capsule 300 mg 300 mg, Oral, 2 times daily, First dose on Thu03/18/23 at 2100, Until Discontinued Given 03/25/2023 8:04 AM EST 300 mg Given 03/24/2023 8:42 PM EST 300 mg Given 03/24/2023 8:25 AM EST 300 mg promethazine (Phenergan) tablet 12.5 mg 12.5 mg, Oral, Once, 1 dose, On Thu03/18/23 at 0955, STAT Given 03/18/2023 10:47 AM EST 12.5 mg senna (Senokot) tablet 17.2 mg 17.2 mg (2 tablet), Oral, Nightly, First dose on Thu03/18/23 at 2100, Until Discontinued, Routine Given 03/24/2023 8:42 PM EST 17.2 mg Given 03/23/2023 8:14 PM EST 17.2 mg Given 03/22/2023 9:23 PM EST 17.2 mg simethicone (Mylicon) chewable tablet 80 mg 80 mg, Oral, 4 times daily PRN, Starting on Thu03/18/23 at 1356, Until Thu03/25/23 at 1341, Routine, flatulence sodium chloride 0.9 % flush 10 mL 10 mL, Intravenous, Every 8 hours PRN, Starting on Thu03/18/23 at 1356, Until Thu03/25/23 at 1341, Routine, line care sodium chloride 0.9 % flush 10 mL 10 mL, Intravenous, As needed, Starting on Thu03/18/23 at 1356, Until Thu03/25/23 at 1341, Routine, line care sucralfate (Carafate) 1 GM/10ML suspension 1 g 1 g, Oral, Once, 1 dose, On Thu03/18/23 at 0955, STAT Given 03/18/2023 10:47 AM EST 1 g sucralfate (Carafate) 1 GM/10ML suspension 1 g 1 g, Oral, 4 times daily, First dose on Thu03/18/23 at 1800, Until Discontinued, Routine Given 03/19/2023 8:32 AM EST 1 g Given 03/18/2023 8:22 PM EST 1 g Given 03/18/2023 5:38 PM EST 1 g traZODone (Desyrel) tablet 50 mg 50 mg, Oral, Nightly PRN, Starting on Thu03/19/23 at 1048, Until Thu03/25/23 at 1341, Routine, sleep Given 03/24/2023 8:42 PM EST 50 mg Given 03/24/2023 1:39 AM EST 50 mg Given 03/23/2023 12:09 AM EST 50 mg documented in this encounter Active and Recently Administered Medications Times are shown in EST. Scheduled Medication Order 03/23/2023 03/24/2023 03/25/2023 DULoxetine (Cymbalta) DR capsule 60 mg 60 mg, Oral, Daily, First dose on Thu03/18/23 at 1430, Until Discontinued, Routine 1004 (Given - Provider: Francis Govea RN) 0825 (Given - Provider: Chelsie Kurtz RN) 0804 (Given - Provider: Rhea Bo LPN) enoxaparin (Lovenox) syringe 40 mg 40 mg, Subcutaneous, Daily, First dose on Thu03/18/23 at 1405, Until Discontinued, Routine 1015 (Not Given - Provider: Francis Govea RN - Reason: Patient/family refused) 0824 (Given - Provider: Chelsie Kurtz RN) 0804 (Given - Provider: Rhea Bo LPN) fluconazole (Diflucan) tablet 200 mg (CANCELED) 200 mg, Oral, Daily, First dose on Thu03/20/23 at 1845, Until Discontinued, Routine 1004 (Given - Provider: Francis Govea RN) fluconazole (Diflucan) tablet 300 mg 300 mg, Oral, Daily, 10 doses, First dose (after last modification) on Thu03/24/23 at 0900, Last dose on Thu04/02/23 at 0900, Routine 0825 (Given - Provider: Chelsie Kurtz RN) 0805 (Given - Provider: Rhea Bo LPN) metoclopramide (Reglan) tablet 5 mg 5 mg, Oral, 3 times daily before meals, First dose on Thu03/20/23 at 1845, Until Discontinued, Routine 1015 (Not Given - Provider: Francis Govea RN - Reason: Patient/family refused)1251 (Given - Provider: Francis Govea RN)1713 (Given - Provider: Francis Govea RN) 0825 (Given - Provider: Chelsie Kurtz RN)1250 (Given - Provider: Chelsie Kurtz RN)1650 (Given - Provider: Chelsie Kurtz RN) 0804 (Given - Provider: Rhea Bo LPN)1200 (Canceled Entry - Provider: Automatic Discharge Provider - Comment: Automatically canceled at discontinue of medication order) nicotine (Nicoderm CQ) 21 MG/24HR patch 1 patch 1 patch, Transdermal, Daily, 42 doses, First dose on Thu03/18/23 at 1405, Last dose on Thu04/28/23 at 0900, Routine 1004 (Medication Applied - Provider: Francis Govea RN) 0822 (Medication Applied - Provider: Chelsie Kurtz RN)0826 (Medication Removed - Provider: Chelsie Kurtz RN) 0800 (Medication Removed - Provider: Rhea Bo LPN)0805 (Medication Applied - Provider: Rhea Bo LPN) pancrelipase (Creon) 6000 unit capsule 1 capsule, Oral, 3 times daily with meals, First dose on Thu03/18/23 at 1430, Until Discontinued, Routine 1004 (Given - Provider: Francis Govea RN)1251 (Given - Provider: Francis Govea RN)1712 (Given - Provider: Francis Govea RN) 0825 (Given - Provider: Chelsie Kurtz RN)1250 (Given - Provider: Chelsie Kurtz RN)1650 (Given - Provider: Chelsie Kurtz RN) 0804 (Given - Provider: Rhea Bo LPN)1230 (Canceled Entry - Provider: Automatic Discharge Provider - Comment: Automatically canceled at discontinue of medication order) pantoprazole (Protonix) EC tablet 40 mg 40 mg, Oral, Daily, First dose on Thu03/18/23 at 1430, Until Discontinued, Routine 1004 (Given - Provider: Francis Govea RN) 0825 (Given - Provider: Cehlsie Kurtz RN) 0805 (Given - Provider: Rhea Bo LPN) polyethylene glycol (Miralax) packet 17 g 17 g, Oral, Daily, First dose on Thu03/18/23 at 1405, Until Discontinued, Routine 1004 (Given - Provider: Francis Govea RN) 0823 (Given - Provider: Chelsie Kurtz RN) 0805 (Given - Provider: Rhea Bo LPN) pregabalin (Lyrica) capsule 300 mg 300 mg, Oral, 2 times daily, First dose on Thu03/18/23 at 2100, Until Discontinued 1004 (Given - Provider: Francis Govea RN)2013 (Given - Provider: Val Dejesus RN) 824 (Given - Provider: Chelsie Kurtz RN)2041 (Given - Provider: Val Dejesus RN) 08 (Given - Provider: Rhea Bo LPN) senna (Senokot) tablet 17.2 mg 17.2 mg (2 tablet), Oral, Nightly, First dose on Thu03/18/23 at 2100, Until Discontinued, Routine 2013 (Given - Provider: Val Dejesus RN) 2041 (Given - Provider: Val Dejesus RN) PRN Medication Order 03/23/2023 03/24/2023 03/25/2023 acetaminophen (Tylenol) tablet 650 mg 650 mg, Oral, Every 6 hours PRN, Starting on Thu03/23/23 at 0750, Until Thu03/25/23 at 1341, Routine, mild pain, moderate pain, fever, headaches 1600 (Given - Provider: Francis Govea RN) 0938 (Given - Provider: Chelsie Kurtz RN) 0644 (Given - Provider: Val Dejesus RN) cloNIDine (Catapres) tablet 0.1 mg 0.1 mg, Oral, Every 6 hours PRN, Starting on Thu03/19/23 at 1047, Until Thu03/25/23 at 1341, Routine, Clinical Opioid Withdrawal Score (COWS) > 8 dicyclomine (Bentyl) capsule 10 mg 10 mg, Oral, Every 6 hours PRN, Starting on Annabel 03/19/23 at 1047, Until Thu03/25/23 at 1341, Routine, abdominal spasms 0938 (Given - Provider: Chelsie Kurtz RN) famotidine (Pepcid) tablet 20 mg 20 mg, Oral, 2 times daily PRN, Starting on Thu03/18/23 at 1424, Until Thu03/25/23 at 1341, Routine, heartburn 2013 (Given - Provider: Val Dejesus RN) 0938 (Given - Provider: Chelsie Kurtz, CHANDNI)204 (Given - Provider: Val Dejesus RN) 0644 (Given - Provider: Val Dejesus RN) gi cocktail oral solution 30 mL 30 mL, Oral, 4 times daily PRN, Starting on Thu03/24/23 at 0726, Until Thu03/25/23 at 1341, Routine, heartburn, indigestion, cramping 0825 (Given - Provider: Chelsie Kurtz RN)1836 (Given - Provider: Chelsie Kurtz RN) hydrOXYzine pamoate (Vistaril) capsule 25 mg 25 mg, Oral, Every 6 hours PRN, Starting on Thu03/18/23 at 2202, Until Thu03/25/23 at 1341, Routine, anxiety 204 (Given - Provider: Val Dejesus RN) ibuprofen tablet 400 mg 400 mg, Oral, Every 6 hours PRN, Starting on Thu03/24/23 at 1301, Until Thu03/25/23 at 1341, Routine, mild pain 1836 (Given - Provider: Chelsie Kurtz RN) ketorolac (Toradol) injection 15 mg (CANCELED) 15 mg, Intravenous, Every 6 hours PRN, Starting on Thu03/22/23 at 1303, Until Thu03/24/23 at 1301, Routine, severe pain 0741 (Given - Provider: Francis Govea RN)2013 (Given - Provider: Val Dejesus RN) 1250 (Given - Provider: Chelsie Kurtz RN) LORazepam (Ativan) tablet 2 mg 2 mg, Oral, 2 times daily PRN, Starting on Annabel 03/19/23 at 0859, Until Thu03/25/23 at 1341, Routine, anxiety 1014 (Given - Provider: Francis Govea RN)2013 (Given - Provider: Val Dejesus RN) 1650 (Given - Provider: Chelsie Kurtz RN) 0533 (Given - Provider: Val Dejesus RN) melatonin tablet 3 mg 3 mg, Oral, Nightly PRN, Starting on Thu03/18/23 at 1356, Until Thu03/25/23 at 1341, Routine, sleep ondansetron ODT (Zofran-ODT) disintegrating tablet 4 mg 4 mg, Oral, Every 6 hours PRN, Starting on Thu03/18/23 at 1356, Until Thu03/25/23 at 1341, Routine, nausea, vomiting 1600 (Given - Provider: Francis Govea RN) 0148 (Given - Provider: Val Dejesus RN)0825 (Given - Provider: Chelsie Kurtz RN)1650 (Given - Provider: Chelsie Kurtz RN) 0534 (Given - Provider: Val Dejesus RN) oxyCODONE (Roxicodone) immediate release tablet 20 mg (CANCELED) 20 mg, Oral, Every 6 hours PRN, Starting on Thu03/22/23 at 1600, Until Thu03/24/23 at 1053, Routine, severe pain, severe breakthrough pain not responsive to non-narcotic agents 0357 (Given - Provider: Griselda Moody)1004 (Given - Provider: Francis Govea RN)1601 (Given - Provider: Francis Govea RN) 0139 (Given - Provider: Val Dejesus, CHANDNI)0825 (Given - Provider: Chelsie Kurtz RN) oxyCODONE (Roxicodone) immediate release tablet 20 mg 20 mg, Oral, Every 8 hours PRN, Starting on Thu03/24/23 at 1100, Until Thu03/25/23 at 1341, Routine, severe pain, severe breakthrough pain not responsive to non-narcotic agents 1650 (Given - Provider: Chelsie Kurtz RN) 0534 (Given - Provider: Val Dejesus RN) oxyCODONE (Roxicodone) immediate release tablet 20 mg 20 mg, Oral, Once as needed, 1 dose, Starting on Thu03/24/23 at 2300, Until Thu03/25/23 at 1341, Routine, severe pain simethicone (Mylicon) chewable tablet 80 mg 80 mg, Oral, 4 times daily PRN, Starting on Thu03/18/23 at 1356, Until Thu03/25/23 at 1341, Routine, flatulence sodium chloride 0.9 % flush 10 mL(Linked Group 1) 10 mL, Intravenous, Every 8 hours PRN, Starting on Thu03/18/23 at 1356, Until Thu03/25/23 at 1341, Routine, line care sodium chloride 0.9 % flush 10 mL(Linked Group 1) 10 mL, Intravenous, As needed, Starting on Thu03/18/23 at 1356, Until Thu03/25/23 at 1341, Routine, line care traZODone (Desyrel) tablet 50 mg 50 mg, Oral, Nightly PRN, Starting on Annabel 03/19/23 at 1048, Until Thu03/25/23 at 1341, Routine, sleep 0009 (Given - Provider: Griselda Moody) 0139 (Given - Provider: Val Dejesus, CHANDNI)2041 (Given - Provider: Val Dejesus RN) Linked Groups Order Group 1: Insert peripheral IV (COMPLETED) Once, On Thu03/18/23 at 1357, For 1 occurrence And Saline lock IV (COMPLETED) Once, On Thu03/18/23 at 1357, For 1 occurrence And sodium chloride 0.9 % flush 10 mLJump to med 10 mL, Intravenous, Every 8 hours PRN, Starting on Thu03/18/23 at 1356, Until Thu03/25/23 at 1341, Routine, line care And sodium chloride 0.9 % flush 10 mLJump to med 10 mL, Intravenous, As needed, Starting on Thu03/18/23 at 1356, Until Thu03/25/23 at 1341, Routine, line care documented in this encounter Additional Health Concerns Assessment Noted Time A fall risk assessment has been complete d for the patient 11/21/2020 2:30 PM EDT A Body Mass Index follow-up plan has been documented for the patient 03/25/2023 10:12 AM EST documented as of this encounter Care Teams Computer Engineering Technician Relationship Specialty Start Date End Date [place], [place] [address] PCP - General Family Medicine 03/18/23 03/25/23 documented as of this encounter
--- OUTSIDE RECORDS SUMMARY | 2024-02-03 15:14 | XMS_ITS | Encounter Summary ---
Author Organization Healthcare Address [address] [id number] Care Team Providers Care Pipe Fitter Maintenance Name Role Phone Citlali Marquez APRN Primary Care Provider [phone] Reason for Referral * Consultation (Routine) - Authorized Specialty Diagnoses / Procedures Referred By Susy burks Referred To Contact Pain Medicine Diagnoses Other chronic pancreatitis (CMS/HCC) Citlali Marquez APRN [address] [place] [address] Phone: tel: fax: Referral ID Status Reason Start Date Expiration Date Visits Requested Visits Authorized [id number] Authorized Specialty Services Required 03/26/2023 09/24/2024 1 1 Reason for Visit * Reason Comments Hospital Follow Up * Auth/Cert (Routine) Specialty Diagnoses / Procedures Referred By Susy burks Referred To Contact Diagnoses Acute on chronic pancreatitis (CMS/HCC) Claudio Landry MD [address] [place] [address] Phone: tel: fax: P[facility] S Inpatient [address] [place] [address] Phone: tel: Referral ID Status Reason Start Date Expiration Date Visits Re quested Visits Authorized [id number] 1 1 Encounter Details Date Type Department Care Team ([facility] Contact Info) Description 03/26/2023 11:00 AM EST Office Visit [facility] Chastity [place] [phone] iCtlali Marquez, ENGINE EMISSION TECHNICIAN [place] [address] Encounter to establish care (Primary Dx); Left upper quadrant abdominal pain; Other chronic pancreatitis (CMS/HCC); Elevation of levels of liver transaminase levels; Breast nodule; Drug dependence (CMS/HCC) Social History Tobacco Use Types Packs/Day Years [...] drink first t caleb in the morning (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 female. Chief Complaint Patient presents with Hospital Follow Up 37 year old female here to establish care. Was recently seen in the ER multiple times for abdominal pain. Has chronic pancreatitis. Has elevated liver function tests. Is scheduled to see Gastroenterology for evaluation. She has been to the ER at or [facility] 43 times in the last . Dates are: 03/18/2303/1502/20/2302/18 Reports vision issues and would like to go to eye doctor. Has trouble with left eye. Denies hearing loss. Tries to see dentist yearly. Feels she eats healthy. Does not really exercise. Has frequent bouts of abdominal pain. Has chronic pancreatitis. Reports it lowers her quality of life. IT will hurt intensely and will cause appetite loss. Used to see Dr. Song in [place]. Was getting controlled substances there. Now she has been dismissed. Now cannot get refills for lorazepam and lyrica. Going to see a psychiatrist at [facility] for behavioral health needs. Has a lot of anxiety. Will use marijuana if she does not have her medication. Has had some counseling. Reports tingling in her left index and middle finger. Is right hand dominant. Would like referral to a pain clinic. Has been to Dr. Castellon in the past and he recommended a pain pump but she was nervous about it and did not get one. Frequent drug screens at ER have had positive results. Drug abuse screen Order: [id number] Status: Final result Visible to patient: Yes (not seen) 0 Result Notes Component Ref Range & Units 7 d ago (03/19/23) 3 wk ago (03/01/23) 1 mo ago (02/20/23) 1 mo ago (02/20/23) 4 mo ago (11/18/22) 6 mo ago (09/27/22) 6 mo ago (09/18/22) Amphetamine Screen Urine Cutoff: 500 ng/mL Negative Negative Negative Negative Negative Negative Negative Benzodiazepines Screen Urine Cutoff: 200 ng/mL Presumptive positive. Confirmation by LC-MS/MS to follow. Negative Negative Negative Negative Negative Negative Cannabinoid Screen Urine Cutoff: 50 ng/mL Presumptive positive. Confirmation by LC-MS/MS to follow.Presumptive positive. Confirmation by LC-MS/MS to follow. Presumptive positive. Confirmation by LC-MS/MS to follow. Presumptive positive. Confirmation by LC-MS/MS to follow. Presumptive positive. Confirmation by LC- MS/MS to follow. Presumptive positive. Confirmation by LC-MS/MS to follow. Presumptive positive. Confirmation by LC-MS/MS to follow. Cocaine Screen Urine Cutoff: 300 ng/mL Negative Negative Negative Negative Negative Negative Negative Barbiturate Screen Urine Cutoff: 200 ng/mL Presumptive positive. Confirmation by LC-MS/MS to follow. Presumptive positive. Confirmation by LC-MS/MS to follow. Negative Negative Negative Negative Negative Opiate Screen Urine Cutoff: 300 ng/mL Negative Negative Presumptive positive. Confirmation by LC-MS/MS to follow. Negative Presumptive positive. Confirmation by LC-MS/MS to follow. Negative Negative Methadone Screen Urine Cutoff: 300 ng/mL Negative Negative Negative Negative Negative Negative Negative Buprenorphine Screen Urine Cutoff: 10 ng/mL Negative Negative Negative Negative Negative Negative Negative Fentanyl Screen Urine Cutoff: 1 ng/mL Negative Negative Negative Negative Negative Negative Negative Oxycodone Screen Urine Cutoff: 100 ng/mL Presumptive positive. Confirmation by LC-MS/MS to follow. Presumptive positive. Confirmation by LC-MS/MS to follow. Presumptive positive. Confirmation by LC-MS/MS to follow. Negative Presumptive positive. Confirmation by LC-MS/MS to follow. Presumptive positive. Confirmation by LC-MS/MS to follow. Presumptive positive. Confirmation by LC-MS/MS to follow. Resulting Agency [facility] She has not seen obzoe in some years. Is not on control. The following portions of the chart were reviewed this encounter and updated as appropriate: Tobacco Allergies Meds Problems Med Hx Surg Hx Fam Hx Current Outpatient Medications: acetaminophen (Tylenol) 500 MG [...] (abdominal spasms)., Disp: 30 capsule, Rfl: 0 famotidine (Pepcid) 20 MG tablet, Take 1 tablet (20 mg) by mouth 2 (two) times a day if needed for heartburn., Disp: , Rfl: fluconazole (Diflucan) 150 MG tablet, Take 2 tablets (300 mg) by mouth 1 (one) time each day for 9 doses., Disp: 18 tablet, Rfl: 0 ibuprofen 800 MG tablet, Take 1 tablet [...] at the same time., Disp: , Rfl: oxyCODONE (Roxicodone) 10 MG immediate release tablet, Take 2 tablets (20 mg) by mouth every 8 (eight) hours if needed for severe pain for up to 5 doses., Disp: 10 tablet, Rfl: 0 pancrelipase, Lzm-Hsyk-Ehbr, (Creon) 6000-09526 units capsule, Take 1 capsule by mouth [...] for flatulence., Disp: 30 tablet, Rfl: 0 DULoxetine (Cymbalta) [address] capsule, Take 1 capsule (60 mg) by mouth 1 (one) time each day. Do not crush or chew., Disp: 30 capsule, Rfl: 0 No current facility-administered medications for this visit. Objective Blood pressure 120/80, pulse 105, height 1.651 m (5' 5 ), weight 105 kg (232 lb 5.8 oz), SpO2 96 %,not currently . Body mass index is 38.67 kg/m??. Physical Exam Constitutional: Comments: Drowsy with lidded eyes and some word slurring but did answer questions Cardiovascular: Rate and Rhythm: Regular rhythm. Tachycardia present. Pulmonary: Effort: Pulmonary effort is normal. Breath sounds: Normal breath sounds. Skin: General: Skin is warm and dry. Psychiatric: Mood and Affect: Mood is depressed. Speech: Speech is slurred. Behavior: Behavior is slowed. Behavior is cooperative. Assessment/Plan Diagnoses and all orders for this visit: Encounter to establish care Left upper quadrant abdominal pain - Ambulatory referral for Follow Up Care Other chronic pancreatitis (CMS/HCC) - Ambulatory referral to Pain Medicine; Future Elevation of levels of liver transaminase levels Breast nodule Drug dependence (CMS/HCC) We reviewed her medical record. We discussed her dependence and I recommend she consider a suboxonetherapy clinic or dependence clinic She has been dismissed from one other primary practice and a pain clinic. She has had positive drugtests multiple times in [place]. I would not be able to prescribe controlled substances for her due to [facility] policy She would like referral to a new pain clinic Recommend she keep upcoming GI and psychiatry appt. There is a soft tissue mass in breast but the scans report it as stable compared to 2017. Will monitor Time Spent: I personally spent a total of 65 minutes on this encounter. This time includes face to face with patient, counseling and discussion and/or coordination of care. Note to patient: The Century Cures Act makes medical notes like these available to patients inthe interest of transparency. However, be advised this is a medical document. It is intended as peer to peer communication. It is written in medical language and may contain abbreviations or verbiagethat are unfamiliar. It may appear blunt or direct. Medical documents are intended to carry relevant information, facts as evident, and the clinical opinion of the practitioner. documented in this encounter Plan of Treatment Scheduled Referrals Name Type Priority Associated Diagnoses Orde r Schedule Ambulatory referral to Pain Medicine Outpatient Referral Routine Other chronic pancreatitis (CMS/HCC) 1 Occurrences starting 03/26/2023 until 09/23/2024 documented as of this encounter Visit Diagnoses Diagnosis Encounter to establish care- Primary Left upper quadrant abdominal pain Other chronic pancreatitis (CMS/HCC) Elevation of levels of liver transaminase levels Breast nodule Other (abnormal) findings on radiological examination of breast Drug dependence (CMS/HCC) documented in this encounter Additional Health Concerns Assessment Noted Time A fall risk assessment has been complete d for the patient 11/21/2020 2:30 PM EDT A Body Mass Index follow-up plan has been documented for the patient 03/26/2023 12:22 PM EST documented as of this encounter Care Teams Pipe Fitter Maintenance Relationship Specialty Start Date End Date Citlali Marquez APRN [address] [place] [address] PCP - General Family Medicine 03/26/23 10/19/23 documented as of this encounter
--- OUTSIDE RECORDS SUMMARY | 2024-02-03 15:15 | XMS_ITS | Encounter Summary ---
Author Organization Healthcare Address [address] [id number] Care Team Providers Care Ethanol Maintenance Mechanic Name Role Phone LjRafiq russell Primary Care Provider [phone] Encounter Details Date Type Department Care Team (Late st Contact Info) Description 03/13/2023 Telephone [facility] [address] [place] [address] Radha Thompson CNA Social History Tobacco Use Types Packs/Day Years [...] slept in a [facility] (including now)? 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) to steady your nerves or to get [...] encounter Miscellaneous Notes * Telephone Encounter - Radha Thompson CNA - 03/13/2023 8:13 AM EST Attempted to contact patient again to try to confirm appointment documented in this encounter Plan of Treatment Not on file documented as of this encounter Visit Diagnoses Not on filedocumented in this encounter Additional Health Concerns Assessment Noted Time A fall risk assessment has been complete d for the patient 11/21/2020 2:30 PM EDT A Body Mass Index follow-up plan has been documented for the patient 02/24/2023 11:55 AM EST documented as of this encounter Care Teams Ethanol Maintenance Mechanic Relationship Specialty Start Date End Date Rafiq Song DO [address] [place] [address] PCP - General 01/06/23 03/16/23 documented as of this encounter
--- OUTSIDE RECORDS SUMMARY | 2024-02-03 15:15 | XMS_ITS | Encounter Summary ---
Author Organization Healthcare Address [address] [place] [address] Care Team Providers Care Retail Attendant Name Role Phone NohemiRafiq Primary Care Provider [phone] Reason for Referral * Consultation (Urgent) - Authorized Specialty Diagnoses / Procedures Referred By Susy burks Referred To Contact Internal Medicine Diagnoses Healthcare maintenance Benjamin Munguia MD [address] [place] [phone] Phone: tel: fax: Referral ID Status Reason Start Date Expiration Date Visits Requested Visits Authorized [id number] Authorized Specialty Services Required 03/10/2023 09/08/2024 1 1 Reason for Visit * Reason Comments Abdominal Pain Encounter Details Date Type Department Care Team ([facility] st Contact Info) Description 03/10/2023 1:07 PM EST - 03/10/2023 3:41 PM EST Emergency [facility] A Emergency Department [address] [place] [address] Benjamin Munguia MD [address] [place] [phone] Tom Hernandez MD [address] [place] [phone] Chronic abdominal pain (Primary Dx); Healthcare maintenance Discharge Disposition: Home or Self Care Social [...] in a nursing home (including now)? 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-CONTACT CENTER ASSISTANT) to steady your nerves or to [...] Sign Reading Time Taken Comments Blood Pressure 133/84 03/10/2023 3:40 PM EST Pulse 110 03/10/2023 3:40 PM EST Temperature 36.8 ??C (98.2 ??F) 03/10/2023 12:[address] Respiratory Rate 18 03/10/2023 3:40 PM EST Oxygen Saturation 99% 03/10/2023 3:40 PM EST Inhaled Oxygen Concentration - - Weight 103 kg (228 lb) 03/10/2023 1:42 PM EST Height - - Body Mass Index 37.53 03/08/2023 6:20 PM EST documented in this encounter Discharge Instructions * Discharge Instructions* George Barnett MD - 03/10/2023 3:14 PM EST Please return to the emergency department if you continue to experience worsening abdominal pain, fever, constipation, blood in stool. We will provide referral to primary care provider at [facility]. If you do not get contacted in next 1-2 business days please call . Recommend pain control with Tylenol, home Lyrica, ibuprofen as directed per pharmacy labile. * Attachments The following attachments cannot be sent through Care Everywhere. * Abdominal Pain, Adult (Burmese) * Pain, Complementary Care for (Burmese) documented in this encounter Medications at Time [...] Notes * ED Provider Notes - George Barnett MD - 03/10/2023 12:04 PM EST Images from the original note were not included. - HPI Chief Complaint Patient presents with Abdominal Pain PIT Note Lila Mcnally is a 37 y.o. female with h/o chronic pancreatitis who presents to ED with abdominal pain. Pt states she has been in and out of the hospital for the past week with abdominal pain. Pt suspects she is having a pancreatitis flare. Pt also c/o loss of appetite. Pt describes abdominal pain as stabbing and reports it radiates to her back. Pt states she did have relief with prescribed medication. Pt states she was supposed to see a doctor for chronic pain management, but states the doctor told her that they could not manage her chronic pain. Pt requests a PCP referral. She endorses nausea.Pt also c/o increased thirst and weakness. Patient denies fever, chills, cough, chest pain, shortness of breath, vomiting, and diarrhea. Date/Time: 03/10/2023/12:38 PM Entered by Mehnaz Grimes, acting as scribe for Dr. Terrance Segovia. Scribe Attestation: This note was dictated to me, Mehnaz Grimes, acting as a scribe for Dr. Terrance Segovia. Attending Attestation: The documentation was recorded by Mehnaz Grimes acting as scribe in my presence at the time of the encounter and accurately reflects the service I personally performed. Agree with the above note. Patient states that she feels like she has an acute flare-up pancreatitis. States that if he gastric/left upper quadrant he was where the pain localizes. She has had normalbowel movements. Has had some reflux with a taste of bowel in her mouth after eating. She was unable to tolerate food due to pain. Recently seen at [facility] and increased her oxycodone dose from 10 mg 4 times daily to 20 mg 4 times daily. She feels that her pain is not under control in his requesting a PCP referral to become established with was the rest of her care is through the hospital system. She denies any recent fever, blood in stool, hematemesis. No data recorded Patient History Past Medical History: Diagnosis Date Anxiety Arthritis Depression Fibromyalgia Gastric erosions 04/19/2021 GERD (gastroesophageal reflux disease) Hypertension Intentional overdose ([facility]) 12/20/2021 Nicotine dependence Obesity [...] History: not reviewed Allergies: Allergies Allergen Reactions Droperidol Other - please document in the [...] Negative for color change and rash. Neurological: Positive for weakness. Negative for seizures and syncope. All other systems reviewed and are negative. Physical Exam ED Triage Vitals [03/10/23 1207] Temp Heart Rate Resp BP 36.8 ??C (98.2 ??F) 100 17 139/86 SpO2 Temp src Heart Rate Source Patient Position 100 % -- -- -- BP Location FiO2 [...] tenderness in the epigastric area. Musculoskeletal: General: Normal range of motion. Cervical back: No rigidity. Skin: General: Skin is warm and dry. Neurological: Mental Status: She is alert and oriented to person, place, and time. Psychiatric: Mood and Affect: Mood normal. Behavior: Behavior normal. ED Course & MDM Clinical Impressions as of 03/10/232010 Healthcare maintenance Chronic abdominal pain Medical Decision Making Patient was seen and examined with Dr. Munguia. In summary, 37-year-old female presenting today with acute abdominal pain. Patient was afebrile, hemodynamically stable, in no respiratory distress, and nontoxic in appearance upon arrival and throughout the entire stay in the ED. On physical examination, patient had diffuse tenderness to palpation of the abdomen. DDx pancreatitis, SBO, constipation, gastroenteritis among oh. All of these have been considered and worked-up with laboratory and/or radiographic evaluation to the extent appropriate based on history and physical examination. Ruling outthe most morbid conditions drove my clinical assessment. Interventions/Medications Received in the ED: From oxycodone 10 mg tablet Lactated Ringer's infusion with 1000 mL GI cocktail solution 30 mL Hydromorphone injection 0.5 mg x 2 Prochlorperazine 2.5 mg injection Ondansetron 4 mg injection All ordered laboratory studies independently reviewed and interpreted by myself and pertinent for: CBC, PT INR, APTT, CMP all unremarkable CT/US imaging independently reviewed and interpreted by myself and shows: CT abdomen pelvis reviewed and interpreted by myself unremarkable Reassessment: On re-evaluation of patient, patient endorsed significant continued pain. She continued to request having oxycodone refill but it was explained to her that she had no labs or imaging indicating a need for further prescriptions of narcotic medications. She is planned to follow up with [facility] on . At that time they can discuss further pain management strategies. Itwould not be recommended to continue her on narcotic medications moving forward as there was concern for a dependence on these medications. Given unremarkable workup and/or symptomatic relief, at this time it was felt that the patient was safe to be discharged home. The patient was comfortable and in agreement with this plan. Patient instructed to follow up with PCP. The patient was given strict return precautions prior to being discharged from the emergency department. IMPRESSION: Chronic abdominal pain DISPOSITION: Discharge ED Prescriptions None Discharge Instructions Please return to the emergency department if you continue to experience worsening abdominal pain, fever, constipation, blood in stool. We will provide referral to primary care provider at [facility]. If you do not get contacted in next 1-2 business days please call . Recommend pain control with Tylenol, home Lyrica, ibuprofen as directed per pharmacy labile. Discharge References/Attachments Abdominal Pain, Adult (Burmese) Pain, Complementary Care for (Burmese) Disposition Discharge AVS (Printed 03/10/2023) Discharge Orders Discharge Ambulatory referral to Internal Medicine Authorized Sign Off Checklist Clinical Impression: Complete ED Disposition: Complete - George Barnett MD Resident 03/10/232015 Cosigned by Benjamin Munguia MD at 03/11/2023 7:12 AM EST Associated attestation - Benjamin Munguia MD - 03/11/2023 7:12 AM EST I saw and evaluated the patient with the resident/fellow. I discussed the case with the resident/fellow and agree with the findings and plan as documented. * ED Triage Notes - Tereza Aguilera - 03/10/2023 12:04 PM EST Patient to ED c/o abd pain. documented in this encounter Plan of Treatment Scheduled Referrals Name Type Priority Associated Diagnoses Orde r Schedule Discharge Ambulatory referral to Internal Medicine Outpatient Referral Routine Healthcare maintenance Expected: 03/10/2023 (Approximate), Expires: 09/07/2024 documented as of this encounter Procedures Procedure Name Priority Date/Time Associated Diagnosis Comments CT ABDOMEN PELVIS W IV CONTRAST STAT 03/10/2023 1:48 PM EST APTT STAT 03/10/2023 1:05 PM EST PROTHROMBIN TIME(PT) / INR STAT 03/10/2023 1:05 PM EST CBC WITH AUTO DIFFERENTIAL STAT 03/10/2023 1:05 PM EST TYPE AND SCREEN STAT 03/10/2023 1:05 PM EST MAGNESIUM, PLASMA STAT 03/10/2023 1:0 5 PM EST LIPASE, PLASMA STAT 03/10/2023 1:05 PM EST COMPREHENSIVE METABOLIC PANEL, PLASMA STAT 03/10/2023 1:05 PM EST documented in this encounter Results * CT Abdomen Pelvis w IV Contrast (03/10/2023 1:48 PM EST) Anatomical Region Laterality Modality Abdomen, Pelvis Computed Tomogra phy Impressions 03/10/2023 3:[address] findings to explain abdominal pain. CRITICAL RESULT: ?? No. COMMUNICATION: Per this written report. Preliminary report signed by Bryson Sanchez M.D. on 03/10/2023 2:58 PM By electronically signing this report, I, the attending physician, attest that I have personally reviewed the images/data for the above examination(s) and agree with the final edited report. Drafted by Bryson Sanchez M.D. on 03/10/2023 2:48 PM Final report signed by Juany Larose MD on 03/10/2023 3:10 PM Narrative 03/10/2023 3:10 PM EST CLINICAL INDICATION: abd pain TECHNIQUE: Imaging of the abdomen and pelvis was performed, from lung bases through pubic symphysis, using spiral technique, following administration of IV contrast, Omnipaque 300, 100 mL. Delayed (excretory phase) images were performed through the kidneys. Reformatted images in the coronal and sagittal planes were generated from the axial data set to facilitate diagnostic accuracy. Total DLP (Dose-Length Product): 1242.42 mGy.cm. Please note: The reported value represents the total of one or more individual components during the CT acquisition on this date and at this time, and as such, the same value may appear in more than one CT report depending on the interpreting/reporting physicians. COMPARISON: CT abdomen pelvis 12/29/2022 FINDINGS: Lung Bases: Stable appearance of a 5 mm nodule in the right lower lobe (series 3, image 41). Mild dependent atelectasis. No consolidation. Liver/Gallbladder/Biliary system: The liver demonstrates homogeneous enhancement. Prior cholecystectomy. No intra- or extra-hepatic biliary ductal dilatation. Spleen: The spleen enhances homogeneously. Pancreas: The pancreas enhances homogeneously. No peripancreatic inflammation. Adrenals: The adrenals are morphologically unremarkable. Kidneys: The kidneys demonstrate symmetric nephrogram and excretion. No renal or ureteral calculi. No hydronephrosis. Bowel/Mesentery: The small bowel loops are not dilated. The large bowel loops are not dilated. The appendix is visualized and normal. Vessels/Lymph Nodes: Normal caliber abdominal aorta. No dissection. No lymphadenopathy within the abdomen or pelvis. Fluid Survey: No free fluid in the abdomen. No free fluid in the pelvis. Pelvis: Mildly distended urinary bladder without bladder wall thickening or perivesical inflammation. The uterus is retroflexed, but otherwise unremarkable. Bilateral ovaries are without acute findings. Body Wall: No acute body wall findings. Bones: No acute fracture. No aggressive osseous lesions. Procedure Note Juany Larose MD - 03/10/2023 CLINICAL INDICATION: abd pain TECHNIQUE: Imaging of the abdomen and pelvis was performed, from lung bases throughpubic symphysis, using spiral technique, following administration of IVcontrast, Omnipaque 300, 100 mL. Delayed (excretory phase) images wereperformed through the kidneys. Reformatted images in the coronal andsagittal planes were generated from the axial data set to facilitatediagnostic accuracy. Total DLP (Dose-Length Product): 1242.42 mGy.cm. Please note: The reportedvalue represents the total of one or more individual components during theCT acquisition on this date and at this time, and as such, the same valuemay appear in more than one CT report depending on theinterpreting/reporting physicians. COMPARISON: CT abdomen pelvis 12/29/2022 FINDINGS: Lung Bases: Stable appearance of a 5 mm nodule in the right lower lobe(series 3, image 41). Mild dependent atelectasis. No consolidation. Liver/Gallbladder/Biliary system: The liver demonstrates homogeneousenhancement. Prior cholecystectomy. No intra- or extra-hepatic biliaryductal dilatation. Spleen: The spleen enhances homogeneously. Pancreas: The pancreas enhances homogeneously. No peripancreaticinflammation. Adrenals: The adrenals are morphologically unremarkable. Kidneys: The kidneys demonstrate symmetric nephrogram and excretion. Norenal or ureteral calculi. No hydronephrosis. Bowel/Mesentery: The small bowel loops are not dilated. The large bowelloops are not dilated. The appendix is visualized and normal. Vessels/Lymph Nodes: Normal caliber abdominal aorta. No dissection. Nolymphadenopathy within the abdomen or pelvis. Fluid Survey: No free fluid in the abdomen. No free fluid in the pelvis. Pelvis: Mildly distended urinary bladder without bladder wall thickeningor perivesical inflammation. The uterus is retroflexed, but otherwiseunremarkable. Bilateral ovaries are without acute findings. Body Wall: No acute body wall findings. Bones: No acute fracture. No aggressive osseous lesions. IMPRESSION: No acute CT findings to explain abdominal pain. CRITICAL RESULT: No. COMMUNICATION: Per this written report. Preliminary report signed by Bryson Sanchez M.D. on 03/10/2023 2:58 PM By electronically signing this report, I, the attending physician, attestthat I have personally reviewed the images/data for the aboveexamination(s) and agree with the final edited report. Drafted by Bryson Sanchez M.D. on 03/10/2023 2:48 PM Final report signed by Juany Larose MD on 03/10/2023 3:10 PM Lester Segovia MD IMG CT PROCEDURES Final Re sult * Type and screen (03/10/2023 1:05 PM EST) ABO/Rh O Positive 03/10/2023 12:42 PM EST BLOOD BANK Antibody Screen Negative 03/10/2023 12:42 PM EST BLOOD BANK Specimen Expiration 03/13/2023 23:59 03/10/2023 12:42 PM EST BLOOD BANK Blood Venous blood specimen / Unknown Venipuncture / Unknown 03/10/2023 1:05 PM EST 03/10/2023 1:10 PM EST Lester Segovia MD LAB BLOOD BANK TEST ORDERA BLES Final Result Performing Organization Address City/[facility]/ZIP Co de Phone Number BLOOD BANK [address] * APTT (03/10/2023 1:05 PM EST) aPTT 30 25 - 35 sec 03/10/2023 1:22 PM EST [facility] Blood Venous blood specimen / Unknown Venipuncture / Unknown 03/10/2023 1:05 PM EST 03/10/2023 1:07 PM EST Lester Segovia MD LAB BLOOD ORDERABLES Final Result Performing Organization Address City/[facility] Co de Phone Number HEALTHCARE LAB [address] [place] [address] * Protime-INR (03/10/2023 1:05 PM EST) Prothrombin Time 13.0 12.0 - 14.3 sec 03/10/2023 1:22 PM EST [facility] INR 1.0 0.9 - 1.1 03/10/2023 1:22 PM EST [facility] Blood Venous blood specimen / Unknown Venipuncture / Unknown 03/10/2023 1:05 PM EST 03/10/2023 1:07 PM EST Narrative [facility] - 03/10/2023 1:22 PM EST OPTIMAL INR RANGES FOR PATIENT ON ORAL ANTICOAGULANT THERAPY Prevention of venous thromboembolism ?INR 2.0 to 3.0 In patients with heart disease: Atrial fibrillation ?INR 2.0 to 3.0 Valvular heart disease ? INR 2.0 to 3.0 Tissue heart valves ?INR 2.0 to 3.0 Mechanical prosthetic valves ? INR 2.5 to 3.5 Prevention of recurrent [place] ? INR 2.5 to 3.5 Lester Segovia MD LAB BLOOD ORDERABLES Final Result Performing Organization Address City/[facility]/ZIP Co de Phone Number [facility] [address] [place] [address] * Lipase (03/10/2023 1:05 PM EST) Pathologist [facility] Lipase, Plasma 27 19 - 63 U/L 03/10/2023 1:26 PM EST [facility]ALTHCARE LAB Blood Venous blood specimen / Unknown Venipuncture / Unknown 03/10/2023 1:05 PM EST 03/10/2023 1:07 PM EST Lester Segovia MD LAB BLOOD ORDERABLES Final Result Performing Organization Address City/[facility]/ZIP Co de Phone Number [facility] [address] [place] [address] * Magnesium (03/10/2023 1:05 PM EST) Pathologist [facility] Magnesium, Plasma 1.9 1.9 - 2.4 mg/dL 03/10/2023 1:26 PM EST [facility] Blood Venous blood specimen / Unknown Venipuncture / Unknown 03/10/2023 1:05 PM EST 03/10/2023 1:07 PM EST Lester Segovia MD LAB BLOOD ORDERABLES Final Result Performing Organization Address City/[facility] Co de Phone Number [facility] [address] [place] [address] * (ABNORMAL) CBC w/diff (03/10/2023 1:05 PM EST) Pathologist [facility] WBC Count 5.13 3.70 - 10.30 10*3/uL LAB HEMATOLOGY METHOD 03/10/2023 1:09 PM EST [facility] RBC Count 4.43 3.90 - 5.20 10*6/uL LAB HEMATOLOGY METHOD 03/10/2023 1:09 PM EST [facility] HGB 11.5 11.2 - 15.7 g/dL LAB HEMATOLOGY METHOD 03/10/2023 1:09 PM EST [facility] HCT 36.4 34.0 - 45.0 % LAB HEMATOLOGY METHOD 03/10/2023 1:09 PM EST [facility] Platelet Count 189 155 - 369 10*3/uL LAB HEMATOLOGY METHOD 03/10/2023 1:09 PM [facility] MCV 82 79 - 98 fL LAB HEMATOLOGY METHOD 03/10/2023 1:09 PM [facility] MCH 26.0 26.0 - 32.0 pg LAB HEMATOLOGY METHOD 03/10/2023 1:09 PM [facility] MCHC 31.6 30.7 - 35.5 g/dL LAB HEMATOLOGY METHOD 03/10/2023 1:09 PM [facility] RDW 16.3(H) 11.5 - 14.5 % LAB HEMATOLOGY METHOD 03/10/2023 1:09 PM [facility] MPV 9.2 8.8 - 12.5 fL LAB HEMATOLOGY METHOD 03/10/2023 1:09 PM [facility] nRBC 0.0 <=0.0 per 100 WBCs LAB HEMATOLOGY METHOD 03/10/2023 1:09 PM [facility] Differential Type Automated LAB HEMATOLOGY METHOD 03/10/2023 1:09 PM [facility] Neutrophils % 80.0 % LAB HEMATOLOGY METHOD 03/10/2023 1:09 PM [facility] Lymphocytes % 13.0 % LAB HEMATOLOGY METHOD 03/10/2023 1:09 PM [facility] Monocytes % 5.0 % LAB HEMATOLOGY METHOD 03/10/2023 1:09 PM [facility] Eosinophils % 2.0 % LAB HEMATOLOGY METHOD 03/10/2023 1:09 PM [facility] Basophils % 0.0 % LAB HEMATOLOGY METHOD 03/10/2023 1:09 PM [facility] Immature Granulocytes % 0.0 % LAB HEMATOLOGY METHOD 03/10/2023 1:09 PM [facility] Neutrophils Absolute 4.11 1.60 - 6.10 10*3/uL LAB HEMATOLOGY METHOD 03/10/2023 1:09 PM [facility] Lymphocytes Absolute 0.65(L) 1.20 - 3.90 10*3/uL LAB HEMATOLOGY METHOD 03/10/2023 1:09 PM [facility] Monocytes Absolute 0.24(L) 0.30 - 0.90 10*3/uL LAB HEMATOLOGY METHOD 03/10/2023 1:09 PM [facility] Eosinophils Absolute 0.09 0.00 - 0.50 10*3/uL LAB HEMATOLOGY METHOD 03/10/2023 1:09 PM [facility] Basophils Absolute 0.02 0.00 - 0.10 10*3/uL LAB HEMATOLOGY METHOD 03/10/2023 1:09 PM EST [facility] Immature Granulocytes Absolute 0.02 0.00 - 0.06 10*3/uL LAB HEMATOLOGY METHOD 03/10/2023 1:09 PM EST [facility] Blood Venous blood specimen / Unknown Venipuncture / Unknown 03/10/2023 1:05 PM EST 03/10/2023 1:07 PM EST Narrative [facility] - 03/10/2023 1:09 PM EST Therapeutic decision making should be based on absolute values, rather than percentages. us Lester Segovia MD LAB BLOOD ORDERABLES Final Result [facility] [address] [place] [id number] * (ABNORMAL) CMP (03/10/2023 1:05 PM EST) Glucose, Plasma 90 74 - 99 mg/dL 03/10/2023 1:26 PM EST [facility] BUN, Plasma 8 7 - 21 mg/dL 03/10/2023 1:26 PM EST [facility] Creatinine, Plasma 0.57(L) 0.60 - 1.10 mg/dL 03/10/2023 1:26 PM EST [facility] BUN/Creatinine Ratio 14 03/10/2023 1:26 PM EST [facility] Sodium, Plasma 133(L) 136 - 145 mmol/L 03/10/2023 1:26 PM EST [facility] Potassium, Plasma 4.0 3.7 - 4.8 mmol/L 03/10/2023 1:26 PM EST [facility] Chloride, Plasma 97 97 - 107 mmol/L 03/10/2023 1:26 PM EST [facility] CO2, Plasma 25 22 - 29 mmol/L 03/10/2023 1:26 PM EST [facility] Anion Gap 11 6 - 16 mmol/L 03/10/2023 1:26 PM EST [facility] Total Calcium, Plasma 9.4 8.9 - 10.2 mg/dL 03/10/2023 1:26 PM EST [facility] Total Protein 7.1 6.3 - 7.9 g/dL 03/10/2023 1:26 PM EST [facility] Albumin, Plasma 4.1 3.5 - 5.2 g/dL 03/10/2023 1:26 PM EST [facility] AST, Plasma 46(H) 10 - 35 U/L 03/10/2023 1:26 PM EST [facility] ALT, Plasma 55(H) 10 - 35 U/L 03/10/2023 1:26 PM EST [facility] Alkaline Phosphatase, Plasma 124(H) 35 - 104 U/L 03/10/2023 1:26 PM EST [facility] Total Bilirubin, Plasma 0.6 0.2 - 1.1 mg/dL 03/10/2023 1:26 PM EST [facility] eGFRcr 121.0 mL/min/1.7 3m*2 03/10/2023 1:26 PM EST [facility] Comment:Reported eGFRcr in m L/min/1.73m2 is based the CKD-EPI 2020 equation that does not use a race coefficient. Blood Venous blood specimen / Unknown Venipuncture / Unknown 03/10/2023 1:05 PM EST 03/10/2023 1:07 PM EST Lester Segovia MD LAB BLOOD ORDERABLES Final Result [facility] [address] [place], [place] [id number] documented in this encounter Visit Diagnoses Diagnosis Chronic abdominal pain- Primary Abdominal pain, unspecified site Healthcare maintenance documented in this encounter Administered Medications Inactive Administered Medications - up to 3 most recent administrations Medication Order MAR Action Action Date Dose Rate Site gi cocktail oral solution 30 mL 30 mL, Oral, Once, 1 dose, On Thu03/10/23 at 1520, STAT Given 03/10/2023 3:25 PM EST 30 mL HYDROmorphone (Dilaudid) injection 0.5 mg 0.5 mg, Intravenous, Once, 1 dose, On Thu03/10/23 at 1245, STAT Given 03/10/2023 1:30 PM EST 0.5 mg HYDROmorphone (Dilaudid) injection 0.5 mg 0.5 mg, Intravenous, Once, 1 dose, On Thu03/10/23 at 1435, STAT Given 03/10/2023 2:38 PM EST 0.5 mg iohexol (OMNIPaque) 300 MG/ML injection 100 mL 100 mL, Intravenous, Once in imaging, 1 dose, Starting on Thu03/10/23 at 1329, Until Thu03/10/23 at 1348, Routine, Imaging Protocol Orders Given 03/10/2023 1:48 PM EST 100 mL lactated Ringer's infusion 1,000 mL 1,000 mL, Intravenous, Once, 1 dose, On Thu03/10/23 at 1245, STAT New Bag 03/10/2023 1:37 PM EST 1,000 mL ondansetron (Zofran) injection 4 mg 4 mg, Intravenous, Once, 1 dose, On Thu03/10/23 at 1245, STAT Given 03/10/2023 1:30 PM EST 4 mg oxyCODONE (Roxicodone) immediate release tablet 10 mg 10 mg, Oral, Once, 1 dose, On Thu03/10/23 at 1535, STAT Given 03/10/2023 3:37 PM EST 10 mg prochlorperazine (Compazine) injection 2.5 mg 2.5 mg, Intravenous, Once, 1 dose, On Thu03/10/23 at 1410, Routine Given 03/10/2023 2:18 PM EST 2.5 mg documented in this encounter Active and Recently Administered Medications Times are shown in EST. Scheduled Medication Order 03/08/2023 03/09/2023 03/10/2023 gi cocktail oral solution 30 mL (COMPLETED) 30 mL, Oral, Once, 1 dose, On Thu03/10/23 at 1520, STAT 1525 (Given - Provid er: Bambi Palomares RN) HYDROmorphone (Dilaudid) injection 0.5 mg (COMPLETED) 0.5 mg, Intravenous, Once, 1 dose, On Thu03/10/23 at 1245, STAT 1330 (Given - Provid er: Bambi Palomares RN) HYDROmorphone (Dilaudid) injection 0.5 mg (COMPLETED) 0.5 mg, Intravenous, Once, 1 dose, On Thu03/10/23 at 1435, STAT 1438 (Given - Provid er: Bambi R Jealni, RN) iohexol (OMNIPaque) 300 MG/ML injection 100 mL (COMPLETED) 100 mL, Intravenous, Once in imaging, 1 dose, Starting on Thu03/10/23 at 1329, Until Thu03/10/23 at 1348, Routine, Imaging Protocol Orders 1348 (Given - Provid er: Val Stout) lactated Ringer's infusion 1,000 mL (COMPLETED) 1,000 mL, Intravenous, Once, 1 dose, On Thu03/10/23 at 1245, STAT 1337 (New Bag - Prov ider: Bambi Palomares RN)1527 (Stopped - Provider: Bambi Palomares RN) ondansetron (Zofran) injection 4 mg (COMPLETED) 4 mg, Intravenous, Once, 1 dose, On Thu03/10/23 at 1245, STAT 1330 (Given - Provid er: Bambi Palomares RN) oxyCODONE (Roxicodone) immediate release tablet 10 mg (COMPLETED) 10 mg, Oral, Once, 1 dose, On Thu03/10/23 at 1535, STAT 1537 (Given - Provid er: Bambi Palomares RN) prochlorperazine (Compazine) injection 2.5 mg (COMPLETED) 2.5 mg, Intravenous, Once, 1 dose, On Thu03/10/23 at 1410, Routine 1418 (Given - Provid er: Jignesh Fabian RN) documented in this encounter Additional Health Concerns Assessment Noted Time A fall risk assessment has been complete d for the patient 11/21/2020 2:30 PM EDT A Body Mass Index follow-up plan has been documented for the patient 02/24/2023 11:55 AM EST documented as of this encounter Care Teams Retail Attendant Relationship Specialty Start Date End Date Rafiq Song DO [address] [place] [address] PCP - General 01/06/23 03/16/23 documented as of this encounter
--- OUTSIDE RECORDS SUMMARY | 2024-02-03 15:15 | XMS_ITS | Encounter Summary ---
Author Organization [facility] Address [address] [place] [address] Care Team Providers Care Aircraft Refueller Name Role Phone Rafiq Song Primary Care Provider [phone] Encounter Details Date Type Department Care Team (Latest Contact Info) Description 03/01/2023 Travel Social History Tobacco Use Types Packs/Day [...] in a care home (including now)? 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
--- OUTSIDE RECORDS SUMMARY | 2024-02-03 15:15 | XMS_ITS | Encounter Summary ---
Author Organization [facility] Address [address] [place] [address] Care Team Providers Care Service Technician Name Role Phone Rafiq Song Primary Care Provider Encounter Details Date Type Department Care Team (Latest Contact Info) Description 03/03/2023 Travel Social History Tobacco Use Types Packs/Day [...] slept in a prison (including now)? 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
--- OUTSIDE RECORDS SUMMARY | 2024-02-03 15:15 | XMS_ITS | Encounter Summary ---
Author Organization Healthcare Address [address] [place] [address] Care Team Providers Care Drift Miner Name Role Phone LjRafiq russell Primary Care Provider [phone] Reason for Visit * Reason Comments Abdominal Pain Encounter Details Date Type Department Care Team (Late st Contact Info) Description 03/01/2023 6:47 PM EST - 03/01/2023 9:57 PM EST Emergency [facility] Emergency Department [address] [place] [address] Chronic abdominal pain (Primary Dx) Discharge Disposition: [...] slept in a snf (including now)? 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) to steady your nerves or to get [...] Reading Time Taken Comments Blood Pressure 125/86 03/01/2023 9:56 PM EST Pulse 75 03/01/2023 9:56 PM EST Temperature 36.6 ??C (97.9 ??F) 03/01/2023 9:56 PM ES T Respiratory Rate 16 03/01/2023 9:56 PM EST Oxygen Saturation 99% 03/01/2023 9:56 PM EST Inhaled Oxygen Concentration - - Weight - - Height - - Body Mass Index - - documented in this encounter Discharge Instructions * Discharge Instructions* Abigail Thompson APRN - 03/01/2023 9:45 PM EST Follow-up outpatient with primary care within one week. Any new or worsening symptoms return to ER Encounter Information Provider Department Dept Phone Address 03/13/2023 8:40 AM (Arrive by 8:20 AM) Francesca Salazar APRN [facility] Arrive at: [facility] [phone], [address] [facility] [address] * Attachments The following attachments cannot be sent through Care Everywhere. * Abdominal Pain, Adult (Macedonian) documented in this encounter Medications at Time of Discharge pantoprazole (Protonix) 40 MG EC tablet Take 1 tablet (40 mg) by mouth 1 (one) time each day. Do not crush, chew, or split. pancrelipase, Mqs-Ohmd-Nwqy, (Creon) 6000-20444 units capsule Take 1 capsule by mouth 3 (three) times a day with meals. 90 capsule 1 01/01/2023 01/08/202 4 acetaminophen (Tylenol) 500 MG tablet Take 2 tablets (1,000 mg) by mouth every 6 (six) hours if needed for pain. 4 cholecalciferol (Vitamin D-3) 50 MCG (2000 [...] a day if needed for heartburn. 4 LORazepam (Ativan) 2 MG tablet Take 1 tablet (2 mg) by mouth 2 (two) times a day. 4 MELATONIN PO Take 10 mg by mouth at night if needed (sleep). 4 naloxone (Kloxxado) 8 mg/0.1 mL nasal spray 1. Give 1 spray in nostril for no/slow breathing or cannot wake after opioid use 2. Call 911 3. Repeat in other nostril if symptoms continue 1 each 02/23/2023 4 nicotine (Nicoderm CQ) 14 MG/24HR patch Place 1 patch on the skin 1 (one) time each day at the same time over 24 hours. 28 patch 02/23/2023 4 nicotine polacrilex (Nicorette) 2 MG gum Chew 1 each (2 mg) if needed for nicotine craving. 100 each 02/23/2023 4 ondansetron ODT (Zofran-ODT) 4 MG disintegrating tablet Take 1 tablet (4 mg) by mouth every 8 (eight) hours if needed for nausea or vomiting. 30 tablet 02/23/2023 4 oxyCODONE (Roxicodone) 10 MG immediate release tablet Take 1 tablet (10 mg) by mouth every 6 (six) hours if needed for severe pain. 4 pregabalin (Lyrica) 100 MG capsule Take 1 capsule (100 mg) by mouth 3 (three) times a day. 4 promethazine (Phenergan) 25 MG tablet Take 1 tablet (25 mg) by mouth every 6 (six) hours if needed for nausea or vomiting. 30 tablet 02/19/2023 4 sucralfate (Carafate) 1 GM/10ML suspension Take 10 mL (1 g) by mouth 4 (four) times a day. 4 documented as of this encounter Miscellaneous Notes * ED Provider Notes - Abigail Thompson, EXPANDED DUTY DENTAL ASSISTANT - 03/01/2023 6:27 PM EST Images from the original note were not included. - HPI Chief Complaint Patient presents with Abdominal Pain Lila Mcnally is a 37 y.o. female PMH GERD, alcohol abuse, chronic pancreatitis, fibromyalgia, anxiety and depression who presents to the Emergency Department with complaints of nausea, LUQ and epigastric abdominal pain, diarrhea x2 days. Discharged from the hospital 02/24/23 for pancreatitis, states she felt good until 2 days ago then developed sharp stabbing LUQ and epigastric abdominal pain which is similar to her usual chronic abdominal pain, has had multiple episodes of diarrhea past 2 days. States she also had a syncopal episode today when walking from the living room to the kitchen due to the extreme abdominal pain. States she started to feel lightheaded, laid down on the ground and I was out for at least a second . Is taking oxycodone 10 mg at home which has not providing her any pain relief. She denies any fevers or chills, headache, chest pain, shortness of breath, cough, dysuria symptoms 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 by: Patient No data recorded Patient History Past Medical History: Diagnosis Date Anxiety Arthritis Depression Fibromyalgia Gastric erosions 04/19/2021 GERD (gastroesophageal reflux disease) Hypertension Intentional overdose ([facility]) 12/20/2021 Nicotine dependence Obesity Pancreatitis Past Surgical [...] color change and rash. Neurological: Positive for syncope. Negative for seizures and headaches. Psychiatric/Behavioral: The patient is not nervous/anxious. All other systems reviewed and are negative. Physical Exam ED Triage Vitals [03/01/23 1835] Temp Heart Rate Resp BP 36.7 ??C (98.1 ??F) 91 16 138/82 SpO2 Temp Source Heart Rate Source Patient Position 100 % Oral -- -- BP Location FiO2 (%) -- -- Physical Exam Vitals and nursing note reviewed. Constitutional: General: She is not in acute distress. Appearance: She is well-developed. HENT: Head: Normocephalic. Right Ear: External ear [...] oriented to person, place, and time. Psychiatric: Behavior: Behavior normal. ED Course & MDM Clinical Impressions as of 03/01/23 2200 Chronic abdominal pain - Medical Decision Making Lila Mcnally is a 37 yrs old female presents today for adominal pain, nausea and vomiting. Based on her history and physical exam, my differential diagnosis included pancreatitis, acute on chronic abdominal pain, mesenteric ischemia, enteritis, colitis. Ruling out the most morbid conditions drove my clinical assessment. In order to fully explore differential these tests and treatments were ordered. Orders Placed This Encounter CMP Lipase Lactic acid, venous Ethyl Alcohol Plasma hCG qualitative CBC w/diff Drug abuse screen Barbiturates Confirm Urine LCMSMS THC Urine Confirm LCMSMS OXYCODONE CONFIRMATION,URINE EKG now - STAT (adult) Insert peripheral IV Medications lactated Ringer's infusion 1,000 mL (1,000 mL Intravenous New Bag 03/01/232033) HYDROmorphone (Dilaudid) injection 1 mg (has no administration in time range) metoclopramide (Reglan) injection 10 mg (has no administration in time range) ondansetron (Zofran) injection 4 mg (4 mg Intravenous Given 03/01/232033) morphine PF 4 mg (4 mg Intravenous Given 03/01/232033) Old records for this patient were reviewed and found to be pertinent. Records review indicates thatpatient discharged from hospital 02/24/23 for acute on chronic abdominal pain. It should be noted that her chronic conditions includes abdominal pain, which currently is not at goal therapy. This complicates her clinical picture because it may be exacerbating symptoms. I considered the utility of obtaining CT Scan, but decided to forgo this after shared decision making with the patient/family because she has had no emesis or diarrhea in ED, has tenderness to palpation epigastric and LUQ area which she reports as her usual pain. I interpreted and clinically used the EKG prior to its official reading. No STEMI on my read. Please see the interpretation for final read. Lab results were reviewed independently and can be interpreted as non actionable. Lab Results Labs Reviewed CBC WITH AUTO DIFFERENTIAL - Abnormal WBC Count 7.41 RBC Count 4.61 HGB 12.2 HCT 38.0 Platelet Count 273 MCV 82 MCH 26.5 MCHC 32.1 RDW 15.9 (*) MPV 9.7 nRBC 0.0 Differential Type Automated Neutrophils % 70.0 Lymphocytes % 23.0 Monocytes % 5.0 Eosinophils % 1.0 Basophils % 1.0 Immature Granulocytes % 0.0 Neutrophils Absolute 5.23 Lymphocytes Absolute 1.68 Monocytes Absolute 0.33 Eosinophils Absolute 0.10 Basophils Absolute 0.05 Immature Granulocytes Absolute 0.02 Narrative: Therapeutic decision making should be based on absolute values, rather than percentages. LIPASE, PLASMA - Normal Lipase, Plasma 21 LACTATE, VENOUS - Normal Lactate, Venous, Whole Blood 0.9 ETHYL ALCOHOL PLASMA - Normal Ethanol Plasma <10 Narrative: Enzymatic Assay: Performed on [employer]. TEST QUALITATIVE PLASMA - Normal Test Negative Narrative: Reference Range: Males and non- females: Negative. COMPREHENSIVE METABOLIC PANEL, PLASMA Glucose, Plasma 89 BUN, Plasma 9 Creatinine, Plasma 0.70 BUN/Creatinine Ratio 13 Sodium, Plasma 140 Potassium, Plasma 3.7 Chloride, Plasma 102 CO2, Plasma 24 Anion Gap 14 Total Calcium, Plasma 9.9 Total Protein 7.5 Albumin, Plasma 4.4 AST, Plasma 17 ALT, Plasma 14 Alkaline Phosphatase, Plasma 103 Total Bilirubin, Plasma 0.4 eGFRcr 115.1 DRUG ABUSE SCREEN, URINE Amphetamine Screen Urine Negative Benzodiazepines Screen Urine Negative Cannabinoid Screen Urine Cocaine Screen Urine Negative Barbiturate Screen Urine Opiate Screen Urine Negative Methadone Screen Urine Negative Buprenorphine Screen Urine Negative Fentanyl Screen Urine Negative Oxycodone Screen Urine BARBITURATES URINE THC URINE CONFIRM OXYCODONE CONFIRMATION,URINE Patient reevaluated after treatments provided and condition improved with medications given. Patient was initially given morphine 4 mg IV and Zofran, on re-evaluation requesting additional pain and nausea medication. She was given Dilaudid 1 mg IV and Reglan 10 mg IV, has been tolerating ice chips since that time and states pain has improved Ultimately, this patient was discharged Home (Discharge) The encounter diagnosis was Chronic abdominal pain. . Patient was counseled on the diagnoses.Discharge medications if any are listed below. Listed medications are thought be either curative for listed diagnoses or will help control ongoing symptoms. Patient is requested to follow up with Patient's primary care provider and GI in order to obtain routine follow-up. Instructions on follow up as well as precautions to return to the ER provided verbally by the EDAPP, as well as written in patients discharge education packet. Patient to follow up outpatient with PCP and GI clinic, any new or worsening symptoms please return to the emergency department. Specific instructions provided are as follows: Discharge Instructions Follow-up outpatient with primary care within one week. Any new or worsening symptoms return to ER Encounter Information Provider Department Dept Phone Address 03/13/2023 8:40 AM (Arrive by 8:20 AM) Francesca Salazar APRN [facility] Arrive at: [facility] [phone] [address] [facility] [address] Discharge References/Attachments Abdominal Pain, Adult (Macedonian) Disposition Discharge AVS (Printed 03/01/2023) Follow-Ups: Follow up with Rafiq Song DO ED Prescriptions None Discharge Instructions Follow-up outpatient with primary care within one week. Any new or worsening symptoms return to ER Encounter Information Provider Department Dept Phone Address 03/13/2023 8:40 AM (Arrive by 8:20 AM) Francesca Salazar APRN [place] [facility] Arrive at: [facility] [phone] [facility] [address] Discharge References/Attachments Abdominal Pain, Adult (Macedonian) Disposition Discharge AVS (Printed 03/01/2023) Follow-Ups: Follow up with Rafiq Song DO Sign Off Checklist Clinical Impression: Complete ED Disposition: Complete - Abigail Thompson APRN 03/01/23 2200 Cosigned by Carlos Enrique Garcia MD at 03/02/2023 11:26 AM EST Associated attestation - Carlos Enrique Garcia MD - 03/02/2023 11:26 AM EST I attest to being involved in providing substantive part of the medical decision making in patient care. * ED Triage Notes - Gonzalez, Morales B, RN - 03/01/2023 6:27 PM EST Pt with c/o upper abd pain, n/d since Thursday, today pain much worse. Pt states she had a syncopal episode today. Pt was recently admitted/dcd from here for pancreatitis. documented in this encounter Plan of Treatment Not on file documented as of this encounter Procedures Procedure Name Priority Date/Time Associated Diagnosis Comments ECG ADULT STAT 03/01/2023 9:25 PM EST OXYCODONE CONFIRMATION,URINE STAT 03/01/2023 8:34 PM EST BARBITURATES URINE STAT 03/01/2023 8: 34 PM EST DRUG ABUSE SCREEN, URINE STAT 03/01/2023 8:34 PM EST THC URINE CONFIRM STAT 03/01/2023 8:3 4 PM EST LACTATE, VENOUS STAT 03/01/2023 8:33 PM EST ETHYL ALCOHOL PLASMA STAT 03/01/2023 8:33 PM EST CBC WITH AUTO DIFFERENTIAL STAT 03/01/2023 8:33 PM EST TEST QUALITATIVE PLASMA STAT 03/01/2023 8:33 PM EST LIPASE, PLASMA STAT 03/01/2023 8:33 PM EST COMPREHENSIVE METABOLIC PANEL, PLASMA STAT 03/01/2023 8:33 PM EST documented in this encounter Results * EKG now - STAT (adult) (03/01/2023 9:25 PM EST) EKG DIAGNOSIS CLASS Abnormal MUSE ECG Ventricular Rate 85 BPM MUSE ECG Atrial Rate 85 BPM MUSE ECG OR Interval 134 ms MUSE ECG QRSD Interval 80 ms MUSE ECG QT Interval 378 ms MUSE ECG QTC Interval 449 ms MUSE ECG P Driscoll 27 degrees MUSE ECG R Driscoll 9 degrees MUSE ECG T Wave Driscoll 13 degrees MUSE ECG Diagnosis Normal sinus rhythm MUSE ECG Diagnosis Cannot rule out MUSE ECG Diagnosis Anterior infarct MUSE ECG Diagnosis , age undetermined MUSE ECG Diagnosis though likely from lead placement MUSE ECG Diagnosis Abnormal ECG MUSE ECG Diagnosis Confirmed by Francis Day ([id number]) on 03/02/2023 12:19:48 PM MUSE ECG 03/01/2023 9:25 PM EST 03/02/2023 12:19 PM EST us Abigail Thompson APRN ECG ORDERABLES Final Resu lt Performing Organization Address City/[facility]/ZIP Co de Phone Number MUSE ECG * (ABNORMAL) OXYCODONE CONFIRMATION,URINE (03/01/2023 8:34 PM EST) Oxycodone <50 <50 ng/mL 03/03/2023 12:38 AM EST [facility] Oxymorphone <50 <50 ng/mL 03/03/2023 12:38 AM EST [facility] Oxymorphone Glucuronide 421(H) <50 ng/mL 03/03/2023 12:38 AM EST [facility] Urine Urine specimen obtained by clean catch procedure / Unknown Non-blood Collection / Unknown 03/01/2023 8:34 PM EST 03/01/2023 8:46 PM EST Narrative [facility] - 03/03/2023 12:38 AM EST Test performed by LC-MS/MS at the [facility]. This test was developed and its performance characteristics determined by [email or web address]. It has not been cleared or approved by the FDA. The laboratory is regulated under CLIA as qualified to perform high-complexity testing. This test is used for clinical purposes. us Abigail Thompson APRN LAB URINE ORDERABLES Final Result [facility] [address] [place] [address] * (ABNORMAL) THC Urine Confirm LCMSMS (03/01/2023 8:34 PM EST) 9 Carboxy THC 11(H) <10 ng/mL 03/03/2023 12:38 AM EST [facility] 9 Carboxy THC Glucuronide 129(H) <25 ng/mL 03/03/2023 12:38 AM EST [facility] Urine Urine specimen obtained by clean catch procedure / Unknown Non-blood Collection / Unknown 03/01/2023 8:34 PM EST 03/01/2023 8:46 PM EST Narrative [facility] - 03/03/2023 12:38 AM EST Drug analysis is confirmed by LC-MS/MS (LC Tandem Mass Spectrometry) on Urine specimens. ?? This test was developed and its performance characteristics determined by [facility]. It has not been cleared or approved by the FDA. The laboratory is regulated under CLIA as qualified to perform high-complexity testing. This test is used for clinical purposes. Testing is performed at the [facility], [facility]. Abigail Thompson APRN LAB URINE ORDERABLES Final Result [facility] [address] [place] [address] * (ABNORMAL) Barbiturates Confirm Urine LCMSMS (03/01/2023 8:34 PM EST) Butalbital <50 <50 ng/mL 03/03/2023 12:38 AM EST [facility] Phenobarbital >1,000(H) <50 ng/mL 03/03/2023 12:38 AM EST [facility] Secobarbital <50 <50 ng/mL 03/03/2023 12:38 AM EST [facility] Urine Urine specimen obtained by clean catch procedure / Unknown Non-blood Collection / Unknown 03/01/2023 8:34 PM EST 03/01/2023 8:46 PM EST Narrative [facility] - 03/03/2023 12:38 AM EST Drug analysis is confirmed by LC-MS/MS (LC Tandem Mass Spectrometry) on Urine specimens. ?? This test was developed and its performance characteristics determined by [facility]. It has not been cleared or approved by the FDA. The laboratory is regulated under CLIA as qualified to perform high-complexity testing. This test is used for clinical purposes. Testing is performed at the [facility]. Abigail Thompson APRN LAB URINE ORDERABLES Final Result [facility] [address] [place] [address] * Drug abuse screen (03/01/2023 8:34 PM EST) [facility] Amphetamine Screen Urine Negative Cutoff: 500 ng/mL 03/01/2023 9:06 PM EST [facility] Benzodiazepines Screen Urine Negative Cutoff: 200 ng/mL 03/01/2023 9:06 PM EST [facility] Cannabinoid Screen Urine Presumptive positive. Confirmation by LC-MS/MS to follow. Cutoff: 50 ng/mL 03/01/2023 9:06 PM EST [facility] Cocaine Screen Urine Negative Cutoff: 300 ng/mL 03/01/2023 9:06 PM EST [facility] Barbiturate Screen Urine Presumptive positive. Confirmation by LC-MS/MS to follow. Cutoff: 200 ng/mL 03/01/2023 9:06 PM EST [facility] Opiate Screen Urine Negative Cutoff: 300 ng/mL 03/01/2023 9:06 PM EST [facility] Methadone Screen Urine Negative Cutoff: 300 ng/mL 03/01/2023 9:06 PM EST [facility] Buprenorphine Screen Urine Negative Cutoff: 10 ng/mL 03/01/2023 9:06 PM EST [facility] Fentanyl Screen Urine Negative Cutoff: 1 ng/mL 03/01/2023 9:06 PM EST [facility] Oxycodone Screen Urine Presumptive positive. Confirmation by LC-MS/MS to follow. Cutoff: 100 ng/mL 03/01/2023 9:06 PM EST [facility] Urine Urine specimen obtained by clean catch procedure / Unknown Non-blood Collection / Unknown 03/01/2023 8:34 PM EST 03/01/2023 8:46 PM EST Abigail Thmopson APRN LAB URINE ORDERABLES Final Result [facility] [address] [place] [address] * (ABNORMAL) CBC w/diff (03/01/2023 8:33 PM EST) WBC Count 7.41 3.70 - 10.30 10*3/uL LAB HEMATOLOGY METHOD 03/01/2023 8:49 PM EST [facility] RBC Count 4.61 3.90 - 5.20 10*6/uL LAB HEMATOLOGY METHOD 03/01/2023 8:49 PM EST [facility] HGB 12.2 11.2 - 15.7 g/dL LAB HEMATOLOGY METHOD 03/01/2023 8:49 PM EST [facility] HCT 38.0 34.0 - 45.0 % LAB HEMATOLOGY METHOD 03/01/2023 8:49 PM EST [facility] Platelet Count 273 155 - 369 10*3/uL LAB HEMATOLOGY METHOD 03/01/2023 8:49 PM EST [facility] MCV 82 79 - 98 fL LAB HEMATOLOGY METHOD 03/01/2023 8:49 PM EST [facility] MCH 26.5 26.0 - 32.0 pg LAB HEMATOLOGY METHOD 03/01/2023 8:49 PM EST [facility] MCHC 32.1 30.7 - 35.5 g/dL LAB HEMATOLOGY METHOD 03/01/2023 8:49 PM EST [facility] RDW 15.9(H) 11.5 - 14.5 % LAB HEMATOLOGY METHOD 03/01/2023 8:49 PM EST [facility] MPV 9.7 8.8 - 12.5 fL LAB HEMATOLOGY METHOD 03/01/2023 8:49 PM EST [facility] nRBC 0.0 <=0.0 per 100 WBCs LAB HEMATOLOGY METHOD 03/01/2023 8:49 PM EST [facility] Differential Type Automated LAB HEMATOLOGY METHOD 03/01/2023 8:49 PM EST [facility] Neutrophils % 70.0 % LAB HEMATOLOGY METHOD 03/01/2023 8:49 PM EST [facility] Lymphocytes % 23.0 % LAB HEMATOLOGY METHOD 03/01/2023 8:49 PM EST [facility] Monocytes % 5.0 % LAB HEMATOLOGY METHOD 03/01/2023 8:49 PM EST [facility] Eosinophils % 1.0 % LAB HEMATOLOGY METHOD 03/01/2023 8:49 PM EST [facility] Basophils % 1.0 % LAB HEMATOLOGY METHOD 03/01/2023 8:49 PM EST [facility] Immature Granulocytes % 0.0 % LAB HEMATOLOGY METHOD 03/01/2023 8:49 PM EST [facility] Neutrophils Absolute 5.23 1.60 - 6.10 10*3/uL LAB HEMATOLOGY METHOD 03/01/2023 8:49 PM EST [facility] Lymphocytes Absolute 1.68 1.20 - 3.90 10*3/uL LAB HEMATOLOGY METHOD 03/01/2023 8:49 PM EST [facility] Monocytes Absolute 0.33 0.30 - 0.90 10*3/uL LAB HEMATOLOGY METHOD 03/01/2023 8:49 PM EST [facility] Eosinophils Absolute 0.10 0.00 - 0.50 10*3/uL LAB HEMATOLOGY METHOD 03/01/2023 8:49 PM EST [facility] Basophils Absolute 0.05 0.00 - 0.10 10*3/uL LAB HEMATOLOGY METHOD 03/01/2023 8:49 PM EST [facility] Immature Granulocytes Absolute 0.02 0.00 - 0.06 10*3/uL LAB HEMATOLOGY METHOD 03/01/2023 8:49 PM EST [facility] Blood Venous blood specimen / Unknown Venipuncture / Unknown 03/01/2023 8:33 PM EST 03/01/2023 8:46 PM EST Narrative [facility] - 03/01/2023 8:49 PM EST Therapeutic decision making should be based on absolute values, rather than percentages. us Abigail Thompson EXPANDED DUTY DENTAL ASSISTANT LAB BLOOD ORDERABLES Final Result Performing Organization Address City/State/[facility] Co de Phone Number [facility] [address] [place] [id number] * hCG qualitative (03/01/2023 8:33 PM EST) Test Negative Negative 03/01/2023 9:11 PM EST [facility] Blood Venous blood specimen / Unknown Venipuncture / Unknown 03/01/2023 8:33 PM EST 03/01/2023 8:46 PM EST Narrative [facility] - 03/01/2023 9:11 PM EST Reference Range: Males and non- females: Negative. us Abigail Thompson APRN LAB BLOOD ORDERABLES Final Result Performing Organization Address [facility] de Phone Number [facility] [address] [place] [address] * Ethyl Alcohol Plasma (03/01/2023 8:33 PM EST) Ethanol Plasma <10 <10 mg/dL 03/01/2023 9:11 PM EST [facility] Blood Venous blood specimen / Unknown Venipuncture / Unknown 03/01/2023 8:33 PM EST 03/01/2023 8:46 PM EST Narrative [facility] - 03/01/2023 9:11 PM EST Enzymatic Assay: Performed on [employer]. Abigail Thompson APRN LAB BLOOD ORDERABLES Final Result Performing Organization Address [facility] Phone Number [facility] [address] [place] [address] * Lactic acid, venous (03/01/2023 8:33 PM EST) Pathologist [facility] Lactate, Venous, Whole Blood 0.9 0.5 - 2.2 mmol/L LAB HEMATOLOGY METHOD 03/01/2023 8:49 PM EST [facility] Blood Venous blood specimen / Unknown Venipuncture / Unknown 03/01/2023 8:33 PM EST 03/01/2023 8:46 PM EST Abigail Thompson APRN LAB BLOOD ORDERABLES Final Result Performing Organization Address [facility] de Phone Number [facility] [address] [place] [address] * Lipase (03/01/2023 8:33 PM EST) Lipase, Plasma 21 19 - 63 U/L 03/01/2023 9:11 PM EST [facility] Blood Venous blood specimen / Unknown Venipuncture / Unknown 03/01/2023 8:33 PM EST 03/01/2023 8:46 PM EST Abigail Thompson APRN LAB BLOOD ORDERABLES Final Result Performing Organization Address City/[facility] Co de Phone Number [facility] [address] [place] [address] * CMP (03/01/2023 8:33 PM EST) Glucose, Plasma 89 74 - 99 mg/dL 03/01/2023 9:11 PM EST [facility] BUN, Plasma 9 7 - 21 mg/dL 03/01/2023 9:11 PM EST [facility] Creatinine, Plasma 0.70 0.60 - 1.10 mg/dL 03/01/2023 9:11 PM EST [facility] BUN/Creatinine Ratio 13 03/01/2023 9:11 PM EST [facility] Sodium, Plasma 140 136 - 145 mmol/L 03/01/2023 9:11 PM [facility] Potassium, Plasma 3.7 3.7 - 4.8 mmol/L 03/01/2023 9:11 PM EST [facility] Chloride, Plasma 102 97 - 107 mmol/L 03/01/2023 9:11 PM EST [facility] CO2, Plasma 24 22 - 29 mmol/L 03/01/2023 9:11 PM EST [facility] Anion Gap 14 6 - 16 mmol/L 03/01/2023 9:11 PM [facility] Total Calcium, Plasma 9.9 8.9 - 10.2 mg/dL 03/01/2023 9:11 PM EST [facility] Total Protein 7.5 6.3 - 7.9 g/dL 03/01/2023 9:11 PM EST [facility] Albumin, Plasma 4.4 3.5 - 5.2 g/dL 03/01/2023 9:11 PM [facility] AST, Plasma 17 10 - 35 U/L 03/01/2023 9:11 PM [facility] ALT, Plasma 14 10 - 35 U/L 03/01/2023 9:11 PM [facility] Alkaline Phosphatase, Plasma 103 35 - 104 U/L 03/01/2023 9:11 PM EST [facility] Total Bilirubin, Plasma 0.4 0.2 - 1.1 mg/dL 03/01/2023 9:11 PM EST [facility] eGFRcr 115.1 mL/min/1.7 3m*2 03/01/2023 9:11 PM [facility] Comment:Reported eGFRcr in m L/min/1.73m2 is based the CKD-EPI 2020 equation that does not use a race coefficient. Blood Venous blood specimen / Unknown Venipuncture / Unknown 03/01/2023 8:33 PM EST 03/01/2023 8:46 PM EST us Abigail Thompson [employer] LAB BLOOD ORDERABLES Final Result [facility] [address] [place] [id number] documented in this encounter Visit Diagnoses Diagnosis Chronic abdominal pain- Primary Abdominal pain, unspecified site documented in this encounter Administered Medications Inactive Administered Medications - up to 3 most recent administrations Medication Order MAR Action Action Date Dose Rate Site HYDROmorphone (Dilaudid) injection 1 mg 1 mg, Intravenous, Once, 1 dose, On 03/01/23 at 2130, STAT Given 03/01/2023 9:31 PM EST 1 mg lactated Ringer's infusion 1,000 mL 1,000 mL, Intravenous, Once (Bolus), On 03/01/23 at 1935, STAT New Bag 03/01/2023 8:34 PM EST 1,000 mL metoclopramide (Reglan) injection 10 mg 10 mg, Intravenous, Once, 1 dose, On 03/01/23 at 2130, STAT Given 03/01/2023 9:30 PM EST 10 mg morphine PF 4 mg 4 mg, Intravenous, Once, 1 dose, On 03/01/23 at 1935, STAT Given 03/01/2023 8:34 PM EST 4 mg ondansetron (Zofran) injection 4 mg 4 mg, Intravenous, Once, 1 dose, On 03/01/23 at 1935, STAT Given 03/01/2023 8:34 PM EST 4 mg documented in this encounter Active and Recently Administered Medications Times are shown in EST. Scheduled Medication Order 02/27/2023 02/28/2023 03/01/2023 HYDROmorphone (Dilaudid) injection 1 mg (COMPLETED) 1 mg, Intravenous, Once, 1 dose, On 03/01/23 at 2130, STAT 2130 (Given - Provid er: Mireya Betancur RN) lactated Ringer's infusion 1,000 mL 1,000 mL, Intravenous, Once (Bolus), On 03/01/23 at 1935, STAT 4 (New Bag - Prov ider: Mireya Betancur RN)[id number] (Stopped - Provider: Mireya Betancur RN) metoclopramide (Reglan) injection 10 mg (COMPLETED) 10 mg, Intravenous, Once, 1 dose, On 03/01/23 at 2130, STAT 2130 (Given - Provid er: Mireya Betancur RN) morphine PF 4 mg (COMPLETED) 4 mg, Intravenous, Once, 1 dose, On 03/01/23 at 1935, STAT 4 (Given - Provid er: Mireya Betancur RN) ondansetron (Zofran) injection 4 mg (COMPLETED) 4 mg, Intravenous, Once, 1 dose, On 03/01/23 at 1935, STAT 4 (Given - Provid er: Mireya Betancur RN) documented in this encounter Additional Health Concerns Assessment Noted Time A fall risk assessment has been complete d for the patient 11/21/2020 2:30 PM EDT A Body Mass Index follow-up plan has been documented for the patient 02/24/2023 11:55 AM EST documented as of this encounter Care Teams Drift [employer]er Relationship Specialty Start Date End Date Rafiq Song DO [address] [place] [address] PCP - General 01/06/23 03/16/23 documented as of this encounter
--- OUTSIDE RECORDS SUMMARY | 2024-02-03 15:15 | XMS_ITS | Encounter Summary ---
Author Organization Healthcare Address [address] [place] [address] Care Team Providers Care Linotyper Name Role Phone NohemiRafiq Tato ALVAREZ Primary Care Provider [phone] Reason for Referral * Consultation (Routine) - Authorized Specialty Diagnoses / Procedures Referred By Susy burks Referred To Contact Pain Medicine Diagnoses Abdominal pain, chronic, epigastric Ирина Olvier APRN [address] [place] [address] Phone: tel: fax: [facility] Interventional Pain Medicine [address] [place] [address] Phone: tel: fax: Referral ID Status Reason Start Date Expiration Date Visits Requested Visits Authorized [id number] Authorized Specialty Services Required 03/07/2023 09/05/2024 1 1 Reason for Visit * Reason Comments Abdominal Pain Encounter Details Date Type Department Care Team ([facility] Contact Info) Description 03/07/2023 12:47 PM EST - 03/07/2023 3:17 PM EST Emergency [facility] Emergency Department [address] [place] [address] Abdominal pain, chronic, epigastric (Primary Dx) Discharge [...] drink first t caleb in the morning ([employer]) to steady your nerves or to get rid of a hangover? 0 02/20/2023 CAGE Questionnaire Score 0 023 Utilities Answer Date Recorded In the past 12 months has e [employer], gas, oil, or water company threatened to [...] Sign Reading Time Taken Comments Blood Pressure 165/101 03/07/2023 12:46 PM EST Pulse 98 03/07/2023 12:46 PM EST Temperature 36.6 ??C (97.9 ??F) 03/07/2023 12:[address] Respiratory Rate 16 03/07/2023 12:46 PM EST Oxygen Saturation 100% 03/07/2023 12:46 PM EST Inhaled Oxygen Concentration - - Weight - - Height - - Body Mass Index - - documented in this encounter Discharge Instructions * Discharge Instructions* Ирина Oliver APRN - 03/07/2023 2:44 PM EST You were in the ED today and evaluated for abdominal pain. Your labs were within normal limits and were provided pain control in the ED. I have referred you to Pain Medicine to establish care, pleasekeep your your appointment on Thursday to establish a PCP as well as your GI appointment later in the month. Please return to the ED with any signs and symptoms of worsening condition. * Attachments The following attachments cannot be sent through Care Everywhere. * Chronic Pain ([place]) documented in this encounter Medications at Time [...] 30 tablet 02/23/2023 03/25/19 24 oxyCODONE (Roxicodone) 10 MG immediate release tablet Take 1 tablet (10 mg) by mouth every 6 (six) hours if needed for severe pain. 03/08/19 24 oxyCODONE (Roxicodone) 5 MG immediate release tablet Take 4 tablets (20 mg) by mouth every 8 (eight) hours if needed for severe pain (pain). 24 tablet 03/03/2023 03/08/19 24 pregabalin (Lyrica) 100 MG capsule Take [...] mouth 4 (four) times a day. 03/25/19 documented as of this encounter Miscellaneous Notes * ED Provider Notes - Ирина Oliver APRN - 03/07/2023 12:38 PM EST Images from the original note were not included. HPI Chief Complaint Patient presents with Abdominal Pain Lila Mcnally is a 37-year-old female with a past medical history of fibromyalgia, GERD, and chronic pancreatitis, whom is well known to the ED presented for evaluation of epigastric pain. 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 She notes that she has beenout of her prescription (20mg) from her regular PCP, who manages her chronic pain, dropped from their clinic because her urinalysis demonstrated THC, which voided her pain agreement, and she is currently in between physicians with an appointment on Thursday to establish care with a new provider. Patient endorses nausea without vomiting, she was given Phenergan suppositories however has not been able to tolerate them at home. Patient denies any fevers, chills, chest pain, shortness of breath, hematemesis, hematochezia, or hemoptysis. 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 by: Patient consumer marketing specialist used: No No data recorded Patient History Past Medical History: Diagnosis Date Anxiety Arthritis Depression Fibromyalgia Gastric erosions 04/19/2021 GERD (gastroesophageal reflux disease) Hypertension Intentional overdose ([facility]) 12/20/2021 Nicotine dependence Obesity Pancreatitis Past Surgical [...] Immunization History: reviewed Allergies: Allergies Allergen Reactions Droperidol Other [...] visual disturbance. Respiratory: Negative for cough, chest tightness and shortness of breath. Cardiovascular: Negative for chest pain and palpitations. Gastrointestinal: Positive for abdominal pain and nausea. Negative for constipation, diarrhea and vomiting. Genitourinary: Negative for dysuria and hematuria. Musculoskeletal: Negative for arthralgias, back pain, neck pain and neck stiffness. Skin: Negative for color change and rash. Neurological: Negative for seizures and syncope. Psychiatric/Behavioral: Negative for confusion. All other systems reviewed and are negative. Physical Exam ED Triage Vitals [03/07/23 1246] Temp Heart Rate Resp BP 36.6 ??C (97.9 ??F) 98 16 (!) 165/101 SpO2 Temp Source Heart Rate Source Patient Position 100 % Oral Monitor Sitting BP Location FiO2 [...] quadrant. There is no guarding or rebound. Negative signs include Carlson's sign and Rovsing's sign. Hernia: No hernia is present. Musculoskeletal: General: No swelling. Cervical back: Neck supple. Skin: General: Skin is warm and dry. Capillary Refill: Capillary refill takes less than 2 seconds. Neurological: Mental Status: She is alert. Psychiatric: Mood and Affect: Mood normal. Labs Reviewed COMPREHENSIVE METABOLIC PANEL, PLASMA - Abnormal Result Value Glucose, Plasma 99 BUN, Plasma 6 (*) Creatinine, Plasma 0.51 (*) BUN/Creatinine Ratio 12 Sodium, Plasma 135 (*) Potassium, Plasma 4.4 Chloride, Plasma 104 CO2, Plasma 20 (*) Anion Gap 11 Total Calcium, Plasma 9.4 Total Protein 6.7 Albumin, Plasma 3.8 AST, Plasma 131 (*) ALT, Plasma 86 (*) Alkaline Phosphatase, Plasma 110 (*) Total Bilirubin, Plasma <0.2 (*) eGFRcr 124.2 CBC WITH AUTO DIFFERENTIAL - Abnormal WBC Count 6.05 RBC Count 4.56 HGB 12.0 HCT 37.3 Platelet Count 235 MCV 82 MCH 26.3 MCHC 32.2 RDW 15.3 (*) MPV 10.2 nRBC 0.0 Differential Type Automated Neutrophils % 70.0 Lymphocytes % 21.0 Monocytes % 4.0 Eosinophils % 3.0 Basophils % 1.0 Immature Granulocytes % 1.0 Neutrophils Absolute 4.25 Lymphocytes Absolute 1.29 Monocytes Absolute 0.25 (*) Eosinophils Absolute 0.15 Basophils Absolute 0.05 Immature Granulocytes Absolute 0.06 Narrative: Therapeutic decision making should be based on absolute values, rather than percentages. LIPASE, PLASMA - Abnormal Lipase, Plasma 128 (*) LACTATE, VENOUS - Normal Lactate, Venous, Whole Blood 2.2 ED HIV 1/2 ANTIBODY/ANTIGEN SCREEN WITH REFLEX TO HIV I/II DIFFERENTIATION - Normal HIV 1 & 2 Antibody/Antigen Screen Non Reactive ED PROTOCOL HIV 1/2 ANTIBODY/ANTIGEN SCREEN W/REFLEX TO HIV 1/2 ANTIBODY DIFFERENTIATION Narrative: The following orders were created for panel order ED Protocol - HIV 1/2 Antibody/Antigen Screen w/Reflex to HIV 1/2 Differentiation. Procedure Abnormality Status --------- ------ ED HIV 1/2 Antibody/Anti...[[id number]] Normal Final result Please view results for these tests on the individual orders. Medications lactated Ringer's infusion 1,000 mL (1,000 mL Intravenous New Bag 03/07/23 1342) ondansetron (Zofran) injection 4 mg (4 mg Intravenous Given 03/07/23 1341) ketorolac (Toradol) injection 15 mg (15 mg Intravenous Given 03/07/23 1342) oxyCODONE (Roxicodone) immediate release tablet 15 mg (15 mg Oral Given 03/07/23 1323) ED Course & MDM ED Course as of 03/07/23 1452 Sat Mar 07, 2023 1359 Lactate: 2.2 [NT] 1359 WBC: 6.05 [NT] 1359 Hemoglobin: 12.0 [NT] 1359 Platelet Count: 235 [NT] 1426 Glucose: 99 [NT] 1426 BUN(!): 6 [NT] 1426 Creatinine(!): 0.51 [NT] 1426 Sodium(!): 135 Treated with IVF [NT] ED Course User Index [NT] Ирина Oliver APRN Clinical Impressions as of 03/07/23 1452 Abdominal pain, chronic, epigastric - Medical Decision Making MDM: Patient was seen in ED by Ирина Oliver APRN and Dr. Ramos. Lila Mcnally presents to ED for evaluation of abdominal pain. Differential diagnosis includes acute on chronic pancreatitis, malingering, medication noncompliance. On arrival, patient is a well-appearing 37-year-old female whom is hemodynamically stable, hypertensive at 165/110 however likely due to discomfort, and in no acute distress. Physical exam revealed clear bilateral breath sounds, no advantageous cardiac sounds, patient was a GCS of 15, alert, and oriented. Patient does have epigastric and left upper quadrant abdominal pain however no rigidity concerning for peritonitis or acute surgical abdomen. Evaluation included CBC with differential, CMP, lactate, lipase. Symptomatic management was provided in the form of 15 mg of oral oxycodone to complete her typical 20 mg dosage, 15mg of toradol, 4 mg of IV Zofran, and 1 L of Lactated Ringer's. Labs were reviewed and interpreted independently by myself and was notable for a mildly elevated lipase at 128 however not elevated enough to indicate an acute flare for pancreatitis, hemoglobin, lactate, hematocrit were all stable. Upon exam between interactions, patient appeared to be resting comfortably in the stretcher and had no witnessed episodes of emesis while in the ED. Final impression for this patient is she is likely experiencing an exacerbation of her chronic abdominal pain as she was found in violation of her pain contract and her PCP dropped her as a patient thus no longer prescribing her home oxycodone. Patient was provided her home dosing of medications while in the ED however after a discussion with Dr. Ramos, we are not comfortable with filling the patient's home medications at this time. This decision was discussed with the patient whom repetitively requested just one more 5 mg oxycodone . Patient was offered a referral to Pain Management and at this time requested discharge. Patient was discharged in stable condition with strict return precautions. Amount and/or Complexity of Data Reviewed Labs: ordered. Decision-making details documented in ED Course. ED Prescriptions None Sign Off Checklist Clinical Impression: Complete ED Disposition: Complete - Discharge Instructions You were in the ED today and evaluated for abdominal pain. Your labs were within normal limits and were provided pain control in the ED. I have referred you to Pain Medicine to establish care, pleasekeep your your appointment on Thursday to establish a PCP as well as your GI appointment later in the month. Please return to the ED with any signs and symptoms of worsening condition. Discharge References/Attachments Chronic Pain ([place]) Disposition Discharge Discharge Orders Ambulatory referral to Pain Medicine Authorized Ирина Oliver APRN 03/07/23 1457 Cosigned by Kayla Ramos MD at 03/07/2023 3:20 PM EST Associated attestation - Kayla Ramos MD - 03/07/2023 3:20 PM EST The patient was seen only by Advanced Practice Provider (AJAY), and care was reviewed with me. Pt well-known to ED for chronic pancreatitis. Brando Pearce has had two oxycodone prescriptions over past two weeks with her PCP no longer prescribing further opiates after found to have THC on UDS, voiding pain agreement. She is tolerating PO intake and ambulating in ED without issue. I do not feel co mfortable giving her additional opiates. She has close outpatient follow up and was given referral to pain clinic. * ED Triage Notes - Alexandria Hrenandez RN - 03/07/2023 12:38 PM EST Pt reports she has chronic pancreatitis and that the pain is unbearable . She reports nausea with no vomiting. She was here last 03/03 for the same complaints with a nonsignificant workup. documented in this encounter Plan of Treatment Scheduled Referrals Name Type Priority Associated Diagnoses Order Schedule Ambulatory referral to Pain Medicine Outpatient Referral Routine Abdominal pain, chronic, epigastric Expected: 03/07/2023 (Approximate), Expires: 09/04/2024 documented as of this encounter Procedures Procedure Name Priority Date/Time Associated Diagnosis Comments ED HIV 1/2 ANTIBODY/ANTIGEN SCREEN WITH REFLEX TO HIV I/II DIFFERENTIATION STAT 03/07/2023 1:38 PM EST ED PROTOCOL HIV 1/2 ANTIBODY/ANTIGEN SCREEN W/REFLEX TO HIV 1/2 ANTIBODY DIFFERENTIATION STAT 03/07/2023 1:38 PM EST LACTATE, VENOUS STAT 03/07/2023 1:38 PM EST CBC WITH AUTO DIFFERENTIAL STAT 03/07/2023 1:38 PM EST LIPASE, PLASMA STAT 03/07/2023 1:38 PM EST COMPREHENSIVE METABOLIC PANEL, PLASMA STAT 03/07/2023 1:38 PM EST documented in this encounter Results * ED HIV 1/2 Antibody/Antigen Screen w/Reflex to HIV 1/2 Differentiation (03/07/2023 1:38 PM EST) Pathologist [facility] HIV 1 & 2 Antibody/Antigen Screen Non Reactive Non Reactive 03/07/2023 2:28 PM EST [facility] Comment:Screening for HIV 1 & 2 antibodies, and P24 antigen is NONREACTIVE. No confirmatory testing is required. Blood Venous blood specimen / Unknown Venipuncture / Unknown 03/07/2023 1:38 PM EST 03/07/2023 1:48 PM EST Ирина Oliver APRN LAB BLOOD ORDERABLES Final Result Performing Organization Address City/[facility] Co de Phone Number [facility] [address] [place] [address] * Lactic acid, venous (03/07/2023 1:38 PM EST) Pathologist [facility] Lactate, Venous, Whole Blood 2.2 0.5 - 2.2 mmol/L LAB HEMATOLOGY METHOD 03/07/2023 1:51 PM EST [facility] Blood Venous blood specimen / Unknown Venipuncture / Unknown 03/07/2023 1:38 PM EST 03/07/2023 1:48 PM EST Ирина Oliver DRAMA CRITIC LAB BLOOD ORDERABLES Final Result Performing Organization Address City/[facility]/ZIP Co de Phone Number [facility] [address] [place] [address] * (ABNORMAL) Lipase (03/07/2023 1:38 PM EST) Lipase, Plasma 128(H) 19 - 63 U/L 03/07/2023 2:22 PM EST [facility] Blood Venous blood specimen / Unknown Venipuncture / Unknown 03/07/2023 1:38 PM EST 03/07/2023 1:48 PM EST Ирина E Taishacamdenmike ORELLANA LAB BLOOD ORDERABLES Final Result Performing Organization Address City/State/[facility] Co de Phone Number [facility] [address] [place] [address] * (ABNORMAL) CBC w/diff (03/07/2023 1:38 PM EST) Pathologist [facility] WBC Count 6.05 3.70 - 10.30 10*3/uL LAB HEMATOLOGY METHOD 03/07/2023 1:50 PM EST [facility] RBC Count 4.56 3.90 - 5.20 10*6/uL LAB HEMATOLOGY METHOD 03/07/2023 1:50 PM EST [facility] HGB 12.0 11.2 - 15.7 g/dL LAB HEMATOLOGY METHOD 03/07/2023 1:50 PM EST [facility] HCT 37.3 34.0 - 45.0 % LAB HEMATOLOGY METHOD 03/07/2023 1:50 PM EST [facility] Platelet Count 235 155 - 369 10*3/uL LAB HEMATOLOGY METHOD 03/07/2023 1:50 PM EST [facility] MCV 82 79 - 98 fL LAB HEMATOLOGY METHOD 03/07/2023 1:50 PM EST [facility] MCH 26.3 26.0 - 32.0 pg LAB HEMATOLOGY METHOD 03/07/2023 1:50 PM EST [facility] MCHC 32.2 30.7 - 35.5 g/dL LAB HEMATOLOGY METHOD 03/07/2023 1:50 PM EST [facility] RDW 15.3(H) 11.5 - 14.5 % LAB HEMATOLOGY METHOD 03/07/2023 1:50 PM EST [facility] MPV 10.2 8.8 - 12.5 fL LAB HEMATOLOGY METHOD 03/07/2023 1:50 PM EST [facility] nRBC 0.0 <=0.0 per 100 WBCs LAB HEMATOLOGY METHOD 03/07/2023 1:50 PM EST [facility] Differential Type Automated LAB HEMATOLOGY METHOD 03/07/2023 1:50 PM EST [facility] Neutrophils % 70.0 % LAB HEMATOLOGY METHOD 03/07/2023 1:50 PM EST [facility] Lymphocytes % 21.0 % LAB HEMATOLOGY METHOD 03/07/2023 1:50 PM EST [facility] Monocytes % 4.0 % LAB HEMATOLOGY METHOD 03/07/2023 1:50 PM EST [facility] Eosinophils % 3.0 % LAB HEMATOLOGY METHOD 03/07/2023 1:50 PM EST [facility] Basophils % 1.0 % LAB HEMATOLOGY METHOD 03/07/2023 1:50 PM EST [facility] Immature Granulocytes % 1.0 % LAB HEMATOLOGY METHOD 03/07/2023 1:50 PM EST [facility] Neutrophils Absolute 4.25 1.60 - 6.10 10*3/uL LAB HEMATOLOGY METHOD 03/07/2023 1:50 PM EST [facility] Lymphocytes Absolute 1.29 1.20 - 3.90 10*3/uL LAB HEMATOLOGY METHOD 03/07/2023 1:50 PM EST [facility] Monocytes Absolute 0.25(L) 0.30 - 0.90 10*3/uL LAB HEMATOLOGY METHOD 03/07/2023 1:50 PM EST [facility] Eosinophils Absolute 0.15 0.00 - 0.50 10*3/uL LAB HEMATOLOGY METHOD 03/07/2023 1:50 PM EST [facility] Basophils Absolute 0.05 0.00 - 0.10 10*3/uL LAB HEMATOLOGY METHOD 03/07/2023 1:50 PM EST [facility] Immature Granulocytes Absolute 0.06 0.00 - 0.06 10*3/uL LAB HEMATOLOGY METHOD 03/07/2023 1:50 PM EST [facility] Blood Venous blood specimen / Unknown Venipuncture / Unknown 03/07/2023 1:38 PM EST 03/07/2023 1:48 PM EST [facility] - 03/07/2023 1:50 PM EST Therapeutic decision making should be based on absolute values, rather than percentages. us Ирина Oliver APRN LAB BLOOD ORDERABLES Final Result [facility] [address] [place] [id number] * (ABNORMAL) CMP (03/07/2023 1:38 PM EST) Glucose, Plasma 99 74 - 99 mg/dL 03/07/2023 2:22 PM [facility] BUN, Plasma 6(L) 7 - 21 mg/dL 03/07/2023 2:22 PM [facility] Creatinine, Plasma 0.51(L) 0.60 - 1.10 mg/dL 03/07/2023 2:22 PM [facility] BUN/Creatinine Ratio 12 03/07/2023 2:22 PM [facility] Sodium, Plasma 135(L) 136 - 145 mmol/L 03/07/2023 2:22 PM [facility] Potassium, Plasma 4.4 3.7 - 4.8 mmol/L 03/07/2023 2:22 PM [facility] Chloride, Plasma 104 97 - 107 mmol/L 03/07/2023 2:22 PM [facility] CO2, Plasma 20(L) 22 - 29 mmol/L 03/07/2023 2:22 PM [facility] Anion Gap 11 6 - 16 mmol/L 03/07/2023 2:22 PM [facility] Total Calcium, Plasma 9.4 8.9 - 10.2 mg/dL 03/07/2023 2:22 PM [facility] Total Protein 6.7 6.3 - 7.9 g/dL 03/07/2023 2:22 PM [facility] Albumin, Plasma 3.8 3.5 - 5.2 g/dL 03/07/2023 2:22 PM [facility] AST, Plasma 131(H) 10 - 35 U/L 03/07/2023 2:22 PM [facility] Comment:Hemolyzed, result ma y be falsely increased. ALT, Plasma 86(H) 10 - 35 U/L 03/07/2023 2:22 PM [facility] Alkaline Phosphatase, Plasma 110(H) 35 - 104 U/L 03/07/2023 2:22 PM [facility] Total Bilirubin, Plasma <0.2(L) 0.2 - 1.1 mg/dL 03/07/2023 2:22 PM [facility] eGFRcr 124.2 mL/min/1.7 3m*2 03/07/2023 2:22 PM EST [facility] Comment:Reported eGFRcr in m L/min/1.73m2 is based the CKD-EPI 2020 equation that does not use a race coefficient. Blood Venous blood specimen / Unknown Venipuncture / Unknown 03/07/2023 1:38 PM EST 03/07/2023 1:48 PM EST Иринаwm Oliver ESTEBAN LAB BLOOD ORDERABLES Final Result [facility] [address] [place] [id number] documented in this encounter Visit Diagnoses Diagnosis Abdominal pain, chronic, epigastric- Primary documented in this encounter Administered Medications Inactive Administered Medications - up to 3 most recent administrations Medication Order MAR Action Action Date Dose Rate Site ketorolac (Toradol) injection 15 mg 15 mg, Intravenous, Once, 1 dose, On 03/07/23 at 1305, STAT Given 03/07/2023 1:42 PM EST 15 mg lactated Ringer's infusion 1,000 mL 1,000 mL, Intravenous, Once (Bolus), On 03/07/23 at 1305, STAT New Bag 03/07/2023 1:42 PM EST 1,000 mL ondansetron (Zofran) injection 4 mg 4 mg, Intravenous, Once, 1 dose, On 03/07/23 at 1305, STAT Given 03/07/2023 1:41 PM EST 4 mg oxyCODONE (Roxicodone) immediate release tablet 15 mg 15 mg, Oral, Once, 1 dose, On 03/07/23 at 1305, STAT Given 03/07/2023 1:23 PM EST 15 mg documented in this encounter Active and Recently Administered Medications Times are shown in EST. Scheduled Medication Order 03/05/2023 03/06/2023 03/07/2023 ketorolac (Toradol) injection 15 mg (COMPLETED) 15 mg, Intravenous, Once, 1 dose, On 03/07/23 at 1305, STAT 1342 (Given - Provid er: Dorys Donovan RN) lactated Ringer's infusion 1,000 mL 1,000 mL, Intravenous, Once (Bolus), On 03/07/23 at 1305, STAT 1342 (New Bag - Prov ider: Dorys Donovan RN)[id number] (Stopped - Provider: Yaima Ornelas RN) ondansetron (Zofran) injection 4 mg (COMPLETED) 4 mg, Intravenous, Once, 1 dose, On 03/07/23 at 1305, STAT 1341 (Given - Provid er: Dorys Donovan RN) oxyCODONE (Roxicodone) immediate release tablet 15 mg (COMPLETED) 15 mg, Oral, Once, 1 dose, On 03/07/23 at 1305, STAT 1323 (Given - Provid er: Dorys Donovan RN) documented in this encounter Additional Health Concerns Assessment Noted Time A fall risk assessment has been complete d for the patient 11/21/2020 2:30 PM EDT A Body Mass Index follow-up plan has been documented for the patient 02/24/2023 11:55 AM EST documented as of this encounter Care Teams Linotyper Relationship Specialty Start Date End Date Rafiq Song DO [address] [place] [address] PCP - General 01/06/23 03/16/23 documented as of this encounter
--- OUTSIDE RECORDS SUMMARY | 2024-02-03 15:15 | XMS_ITS | Encounter Summary ---
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 0 02/20/2023 CAGE Questionnaire Score 0 12/29/2 023 Utilities Answer Date Recorded In the past 12 months has th e [employer], gas, oil, or water Pow[employer] threatened to shut off services in your [...] Sign Reading Time Taken Comments Blood Pressure 139/82 03/08/2023 9:23 PM EST Pulse 89 03/08/2023 9:23 PM EST Temperature 36.7 ??C (98 ??F) 03/08/2023 9:23 PM EST Respiratory Rate 18 03/08/2023 9:23 PM EST Oxygen Saturation 98% 03/08/2023 9:23 PM EST Inhaled Oxygen Concentration - - Weight 103 kg (228 lb) 03/08/2023 6:20 PM EST Height 166 cm (5' 5.35 ) 03/08/2023 6:20 PM EST Body Mass Index 37.53 03/08/2023 6:20 PM EST documented in this encounter Discharge Instructions * Discharge Instructions* Cally Barry MD - 03/08/2023 9:13 PM EST Please return to ER for new or worsening symptoms. Follow up with your scheduled appointments. documented in this encounter Medications at Time [...] Miscellaneous Notes * ED Provider Notes - Cally Barry MD - 03/08/2023 6:17 PM EST Images from the original note were not included. - HPI Chief Complaint Patient presents with Abdominal Pain HPI The patient presents with a chief complaint of severe abdominal pain. They have a history of chronic pancreatitis and report that their pain has been unmanageable despite receiving oxycodone from a previous medical encounter. The patient states that they are unable to wait until their scheduled doctor's appointment on Thursday, as they feel like they are dying. The patient reports an inability to keep anything down, including drinks, food, and jello. They have vomited twice today and experienced diarrhea yesterday, but not today. The patient has a history of abdominal surgeries, including gallbladder removal, ERCP for a stone in the duct, and a D&C following a miscarriage. They also report having undergone endoscopies. The patient admits to smoking and using marijuana but denies current alcohol consumption. 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 The patient's pain is exacerbated by eating, laying back, and drinking, even water, juice, or Gatorade. They find some relief by leaning forward, but lying back increases the pain, causing them to break out in sweat and experience panic attacks. In the last 24 hours, the patient has vomited three times and urinated six or seven times. They report an allergy to Tramadol, which causes facial distortion. For pain management, the patient has previously found relief with Morphine or Dilaudid, and for nausea, Reglan has been effective. No data recorded Patient History Past Medical History: Diagnosis Date Anxiety Arthritis Depression Fibromyalgia Gastric erosions 04/19/2021 GERD (gastroesophageal reflux disease) Hypertension Intentional overdose ([facility]) 12/20/2021 Nicotine dependence Obesity Pancreatitis [...] times a month Allergies: Allergies Allergen Reactions Droperidol Other - please document in the comment field Experienced an acute dystonic reaction treated with diphenhydramine Tramadol Rash and Dizziness Patient described previously experiencing panic attacks too. Review of Systems Per HPI Physical Exam ED Triage Vitals [03/08/23 1820] Temp Heart Rate Resp BP 36.7 ??C (98 ??F) 95 20 (!) 147/99 SpO2 Temp Source Heart Rate Source Patient [...] Tenderness: There is abdominal tenderness in the periumbilical area. Musculoskeletal: General: No deformity. Cervical back: Normal range of motion and neck supple. Skin: General: Skin is warm and dry. Coloration: Skin is not jaundiced or pale. Neurological: General: No focal deficit present. Mental Status: She is alert and oriented to person, place, and time. Psychiatric: Mood and Affect: Mood is anxious. ED Course & MDM Clinical Impressions as of 03/08/23 2312 Abdominal pain, generalized ED Course & MDM Medical Decision Making MDM: 37 y.o. female with history and exam per above presenting for evaluation of Abdominal Pain. Diagnoses considered include pancreatitis, gastritis, peptic ulcer disease, gastroparesis. Upon presentation patient is hemodynamically stable saturating appropriately on room air and in no acute distress. Laboratory workup from yesterday was independently reviewed and significant for normal lactate, mild elevation in lipase, no leukocytosis and no significant electrolyte abnormality. Stable mild elevations in LFTs. Based off of history no repeat laboratory workup or imaging was needed at this time. EKG personally interpreted by me and significant for sinus tachycardia. Patient given Phenergan and oxycodone and noted that she spit up them so was given Dilaudid and IV Reglan. Patient had improvement of symptoms and agreeable to discharge with already scheduled outpatient follow-up this Thursday. Orders Placed This Encounter Procedures EKG now - STAT (adult) ED Medication Administration from 03/08/2023 1817 to 03/08/2023 2314 Date/Time Order Dose Route Action Action by 03/08/2023 1907 EST oxyCODONE (Roxicodone) immediate release tablet 20 mg 20 mg Oral Given Gilberto Dietrich 03/08/2023 190 EST promethazine (Phenergan) tablet 25 mg 25 mg Oral Given Gilberto Dietrich 03/08/20232022 EST metoclopramide (Reglan) injection 10 mg 10 mg Intramuscular Given Aishwarya Carranza 03/08/20232024 EST HYDROmorphone (Dilaudid) injection 1 mg 1 mg Intramuscular Given Aishwarya Carranza The encounter diagnosis was Abdominal pain, generalized. The following providers were documented as being assigned to this patient during this visit: Sincerely, Deyanira Lopez MD Dejohn, Jodi M, MD 54 Last PDMP Review: Deyanira Lopez MD on 03/08/2023 8:16 PM ED Prescriptions Medication Sig Dispense Start Date End Date Auth. Provider oxyCODONE (Roxicodone) 20 MG immediate release tablet Take 1 tablet (20 mg) by mouth every 6 (six) hours if needed (abdominal pain). 8 tablet 03/08/2023 -- Deyanira Lopez MD Discharge Instructions Please return to ER for new or worsening symptoms. Follow up with your scheduled appointments. Disposition Discharge AVS (Printed 03/08/2023) Sign Off Checklist Clinical Impression: Complete ED Disposition: Complete - Cally Barry MD Resident 03/08/23 9939 Cosigned by Deyanira Lopez MD at 03/09/2023 8:05 AM EST Associated attestation - Deyanira Lopez MD - 03/09/2023 8:05 AM EST I saw and evaluated the patient with the resident/fellow. I discussed the case with the resident/fellow and agree with the findings and plan as documented. * ED Triage Notes - Teto Briseno RN - 03/08/2023 6:17 PM EST Patient states abdominal pain for the past 2 days and is rating her pain 10/10. Patient also havingn/v. documented in this encounter Plan of Treatment Not on file documented as of this encounter Procedures Procedure Name Priority Date/Time Associated Diagnosis Comments ECG ADULT STAT 03/08/2023 6:25 PM EST documented in this encounter Results * EKG now - STAT (adult) (03/08/2023 6:25 PM EST) EKG DIAGNOSIS CLASS Abnormal MUSE ECG Ventricular Rate 92 BPM MUSE ECG Atrial Rate 92 BPM MUSE ECG VA Interval 126 ms MUSE ECG QRSD Interval 82 ms MUSE ECG QT Interval 364 ms MUSE ECG QTC Interval 450 ms MUSE ECG P [place] 25 degrees MUSE ECG R [place] 50 degrees MUSE ECG T Wave [place] 24 degrees MUSE ECG Diagnosis Normal sinus rhythm MUSE ECG Diagnosis Low voltage QRS MUSE ECG Diagnosis Cannot rule out MUSE ECG Diagnosis Anterior infarct MUSE ECG Diagnosis , age undetermined MUSE ECG Diagnosis Abnormal ECG MUSE ECG Diagnosis Confirmed by Jennie Morales ([id number]) on 03/09/2023 2:23:03 PM MUSE ECG 03/08/2023 6:25 PM EST 03/09/2023 2:23 PM EST us Deyanira Lopez MD ECG ORDERABLES Final Result MUSE ECG documented in this encounter Visit Diagnoses Diagnosis Abdominal pain, generalized- Primary documented in this encounter Administered Medications Inactive Administered Medications - up to 3 most recent administrations Medication Order MAR Action Action Date Dose Rate Site HYDROmorphone (Dilaudid) injection 1 mg 1 mg, Intramuscular, Once, 1 dose, On 03/08/23 at 195, STAT Given 03/08/2023 8:25 PM EST 1 mg Left Deltoid metoclopramide (Reglan) injection 10 mg 10 mg, Intramuscular, Once, 1 dose, On 03/08/23 at 1954, STAT Given 03/08/2023 8:23 PM EST 10 mg Right Deltoid oxyCODONE (Roxicodone) immediate release tablet 20 mg 20 mg, Oral, Once, 1 dose, On 03/08/23 at 1855, STAT Given 03/08/2023 7:07 PM EST 20 mg promethazine (Phenergan) tablet 25 mg 25 mg, Oral, Once, 1 dose, On 03/08/23 at 1855, STAT Given 03/08/2023 7:07 PM EST 25 mg documented in this encounter Active and Recently Administered Medications Times are shown in EST. Scheduled Medication Order 03/06/2023 03/07/2023 03/08/2023 HYDROmorphone (Dilaudid) injection 1 mg (COMPLETED) 1 mg, Intramuscular, Once, 1 dose, On 03/08/23 at 1954, STAT 2024 (Given - Provid er: Yulia Carranza) metoclopramide (Reglan) injection 10 mg (COMPLETED) 10 mg, Intramuscular, Once, 1 dose, On 03/08/23 at 195, STAT 2022 (Given - Provid er: Yulia Carranza) oxyCODONE (Roxicodone) immediate release tablet 20 mg (COMPLETED) 20 mg, Oral, Once, 1 dose, On 03/08/23 at 1855, STAT 1907 (Given - Provid er: Chiquita Dietrich RN) promethazine (Phenergan) tablet 25 mg (COMPLETED) 25 mg, Oral, Once, 1 dose, On 03/08/23 at 1855, STAT 1907 (Given - Provid er: Chiquita Dietrich RN) documented in this encounter Additional Health Concerns Assessment Noted Time A fall risk assessment has been complete d for the patient 11/21/2020 2:30 PM EDT A Body Mass Index follow-up plan has been documented for the patient 02/24/2023 11:55 AM EST documented as of this encounter Care Teams Hazardous Materials Handler Relationship Specialty Start Date End Date Rafiq Song DO [address] [place] [address] PCP - General 01/06/23 03/16/23 documented as of this encounter
--- OUTSIDE RECORDS SUMMARY | 2024-02-03 15:15 | XMS_ITS | Encounter Summary ---
Author Organization Healthcare Address 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 Left VM documented in this encounter Plan of Treatment [...] documented as of this encounter Care Teams Body Shop Manager Relationship Specialty Start Date End Date Rafiq Song DO [address] [place] [address] PCP - General 01/06/23 03/16/23 documented as of this encounter
--- OUTSIDE RECORDS SUMMARY | 2024-02-03 15:15 | XMS_ITS | Encounter Summary ---
Author Organization Healthcare Address [address] [place] [address] Care Team Providers Care Graduation Coach Name Role Phone Rafiq Song Primary Care Provider [phone] Reason for Visit * Reason Comments Abdominal Pain Encounter Details Date Type Department Care Team (Late st Contact Info) Description 03/03/2023 8:50 AM EST - 03/03/2023 11:04 AM EST Emergency [facility] S Emergency Department [address] [place] [address] Lisa Fuller DO [address] [place] [address] Chronic pain syndrome (Primary Dx); Chronic pancreatitis, unspecified pancreatitis type (CMS/HCC) Discharge Disposition: Home or Self Care [...] drink first t caleb in the morning (EYE-RN SURGERY ICU) to steady your nerves or to get [...] Sign Reading Time Taken Comments Blood Pressure 153/100 03/03/2023 10:52 AM EST Pulse 91 03/03/2023 10:52 AM EST Temperature 36.8 ??C (98.2 ??F) 03/03/2023 8:48 AM ES T Respiratory Rate 18 03/03/2023 10:52 AM EST Oxygen Saturation 96% 03/03/2023 10:52 AM EST Inhaled Oxygen Concentration - - Weight 103 kg (228 lb) 03/03/2023 8:48 AM EST Height 165.1 cm (5' 5 ) 03/03/2023 8:48 AM EST Body Mass Index 37.94 03/03/2023 8:48 AM EST documented in this encounter Discharge Instructions * Discharge Instructions* Lisa Fuller DO - 03/03/2023 10:44 AM EST GI appointment 03/13 8:40 am with Martin ORELLANA at [address] [facility] [facility] [address] documented in this encounter Medications at Time [...] Miscellaneous Notes * ED Provider Notes - Lisa Fuller DO - 03/03/2023 8:42 AM EST Images from the original note were not included. - HPI Chief Complaint Patient presents with Abdominal Pain Lila Mcnally is a 37 y.o. female with a past medical history significant for Pancreatitis, GERD, HTN, Depression, Anxiety who presents today via private vehicle with abdominal pain. Pt c/o constant, stabbing abdominal pain. Pt states she had 3 episodes of emesis [facility]RE[facility] TALLIER and one episode in ED. Pt adds she can not sleep. Pt reports not being able to keep Zofran down d/t emesis. Adds she has PCP appointment 03/04 with [facility] but unsure if she will be able to make it d/t scheduling issues. Patient denies fever, chills, CP, SOA, diarrhea. Patient has no other complaints at this time. 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 Respiratory: Negative for shortness of breath. Cardiovascular: Negative for chest pain. Gastrointestinal: Positive for abdominal pain, nausea and vomiting. Negative for diarrhea. All other systems reviewed and are negative. Physical Exam ED Triage Vitals Temp Heart Rate Resp BP 03/03/23 0848 03/03/23 0848 03/03/23 0848 03/03/23 0850 36.8 ??C (98.2 ??F) 118 16 (!) 156/89 SpO2 Temp Source Heart Rate Source Patient Position 03/03/23 0848 03/03/23 0848 -- -- 100 % Oral BP Location FiO2 (%) -- -- Physical Exam Vitals and nursing note reviewed. Constitutional: Appearance: She is well-developed. HENT: Head: Normocephalic and atraumatic. Eyes: Conjunctiva/sclera: Conjunctivae normal. Cardiovascular: Rate and Rhythm: Regular rhythm. Tachycardia present. Heart sounds: No murmur heard. Pulmonary: Effort: Pulmonary effort is normal. No respiratory distress. Breath sounds: Normal breath sounds. Abdominal: Palpations: Abdomen is soft. Tenderness: There is abdominal tenderness. Musculoskeletal: General: No swelling. Cervical back: Neck supple. Skin: General: Skin is warm and dry. Capillary Refill: Capillary refill takes less than 2 seconds. Neurological: Mental Status: She is alert. Psychiatric: Mood and Affect: Mood normal. ED Course & MDM Clinical Impressions as of 03/03/23 1106 Chronic pain syndrome Chronic pancreatitis, unspecified pancreatitis type (CMS/HCC) - Medical Decision Making Lila is a 37 y.o. female who presents to the ED with a chief complaint of Chief Complaint Patient presents with Abdominal Pain . It should be noted that her chronic conditions includes chronic pain and pancreatitis and opiate tolerance, which currently is not at goal therapy. This complicates her clinical picture because it may be exacerbating symptoms. Based on her history and physical exam, my differential diagnosis included chronic pain exacerbation vs. A/c pancreatitis vs pud. Ruling out the most morbid conditions drove my clinical assessment. In order to fully explore differential these tests and treatments were ordered. Orders Placed This Encounter Procedures CMP CBC w/diff Lipase Lactic acid, venous Medications lactated Ringer's infusion 1,000 mL (has no administration in time range) oxyCODONE (Roxicodone) immediate release tablet 20 mg (has no administration in time range) metoclopramide (Reglan) injection 10 mg (has no administration in time range) I reviewed prior records including her most recent ED note which documented multiple visits for chronic abdominal pain. Pt given toradol, compazine, reglan and home oral oxycodone for symptoms with improvement. Pt given2 days of home 20 mg oxy TID which is what she was discharged on for flare a week ago. She was reminded of her follow up GI appointment and given pain management referral as she may have been discharged from her current pain management provider. Ultimately, this patient was Was discharged Home (Discharge) The primary encounter diagnosis was Chronic pain syndrome. A diagnosis of Chronic pancreatitis, unspecified pancreatitis type (CMS/HCC) was also pertinent to this visit. . Patient was counseled on the diagnoses.Discharge [...] instructions provided are as follows: Discharge Instructions GI appointment 03/13 8:40 am with Matrin ORELLANA at [address] [facility] [address] Disposition Discharge Patient sent to pharmacy to oyster picker prescriptions. AVS (Printed 03/03/2023) Date/Time: 03/03/2023/9:15 AM Scribe Attestation: This note was dictated to me, Julia E Hearty, acting as a scribe for Lias Cueva DO. Attending Attestation: The documentation was recorded by Julia Daniel acting as scribe in my presence at the time of the encounter and accurately reflects the service I personally performed. Last PDMP Review: Lisa Fuller DO on 03/03/2023 8:54 AM ED Prescriptions None - Lisa Fuller DO 03/04/23 1558 * ED Triage Notes - Afia Jernigan RN - 03/03/2023 8:42 AM EST Patient states she is having severe abdominal pain and states she has chronic pancreatitis. Patientstates she threw up 3 times this morning. documented in this encounter Plan of Treatment Not on file documented as of this encounter Procedures Procedure Name Priority Date/Time Associated Diagnosis Comments LACTATE, VENOUS STAT 03/03/2023 9:20 AM EST CBC WITH AUTO DIFFERENTIAL STAT 03/03/2023 9:20 AM EST LIPASE, PLASMA STAT 03/03/2023 9:20 AM EST COMPREHENSIVE METABOLIC PANEL, PLASMA STAT 03/03/2023 9:20 AM EST documented in this encounter Results * Lactic acid, venous (03/03/2023 9:20 AM EST) Lactate, Venous, Whole Blood 1.4 0.5 - 2.2 mmol/L LAB HEMATOLOGY METHOD 03/03/2023 9:27 AM EST [facility] Blood Venous blood specimen / Unknown Venipuncture / Unknown 03/03/2023 9:20 AM EST 03/03/2023 9:25 AM EST Lisa Fuller DO LAB BLOOD ORDERABLES Final Re sult [facility] [address] [place] [address] * Lipase (03/03/2023 9:20 AM EST) Lipase, Plasma 54 19 - 63 U/L 03/03/2023 10:19 AM EST [facility] Blood Venous blood specimen / Unknown Venipuncture / Unknown 03/03/2023 9:20 AM EST 03/03/2023 9:25 AM EST Lisa Lantigua Alina ALVAREZ LAB BLOOD ORDERABLES Final Re sult Performing Organization Address City/[facility]/ZIP Co de Phone Number [facility] [address] [place] [address] * (ABNORMAL) CBC w/diff (03/03/2023 9:20 AM EST) WBC Count 8.98 3.70 - 10.30 10*3/uL LAB HEMATOLOGY METHOD 03/03/2023 9:28 AM EST [facility] RBC Count 4.48 3.90 - 5.20 10*6/uL LAB HEMATOLOGY METHOD 03/03/2023 9:28 AM EST [facility] HGB 11.8 11.2 - 15.7 g/dL LAB HEMATOLOGY METHOD 03/03/2023 9:28 AM EST [facility] HCT 36.8 34.0 - 45.0 % LAB HEMATOLOGY METHOD 03/03/2023 9:28 AM EST [facility] Platelet Count 245 155 - 369 10*3/uL LAB HEMATOLOGY METHOD 03/03/2023 9:28 AM EST [facility] MCV 82 79 - 98 fL LAB HEMATOLOGY METHOD 03/03/2023 9:28 AM EST [facility] MCH 26.3 26.0 - 32.0 pg LAB HEMATOLOGY METHOD 03/03/2023 9:28 AM EST [facility] MCHC 32.1 30.7 - 35.5 g/dL LAB HEMATOLOGY METHOD 03/03/2023 9:28 AM EST [facility] RDW 15.9(H) 11.5 - 14.5 % LAB HEMATOLOGY METHOD 03/03/2023 9:28 AM EST [facility] MPV 9.8 8.8 - 12.5 fL LAB HEMATOLOGY METHOD 03/03/2023 9:28 AM EST [facility] nRBC 0.0 <=0.0 per 100 WBCs LAB HEMATOLOGY METHOD 03/03/2023 9:28 AM EST [facility] Differential Type Automated LAB HEMATOLOGY METHOD 03/03/2023 9:28 AM EST [facility] Neutrophils % 73.0 % LAB HEMATOLOGY METHOD 03/03/2023 9:28 AM EST [facility] Lymphocytes % 18.0 % LAB HEMATOLOGY METHOD 03/03/2023 9:28 AM EST [facility] Monocytes % 5.0 % LAB HEMATOLOGY METHOD 03/03/2023 9:28 AM EST [facility] Eosinophils % 2.0 % LAB HEMATOLOGY METHOD 03/03/2023 9:28 AM EST [facility] Basophils % 1.0 % LAB HEMATOLOGY METHOD 03/03/2023 9:28 AM EST [facility] Immature Granulocytes % 1.0 % LAB HEMATOLOGY METHOD 03/03/2023 9:28 AM EST [facility] Neutrophils Absolute 6.58(H) 1.60 - 6.10 10*3/uL LAB HEMATOLOGY METHOD 03/03/2023 9:28 AM EST [facility] Lymphocytes Absolute 1.65 1.20 - 3.90 10*3/uL LAB HEMATOLOGY METHOD 03/03/2023 9:28 AM EST [facility] Monocytes Absolute 0.41 0.30 - 0.90 10*3/uL LAB HEMATOLOGY METHOD 03/03/2023 9:28 AM EST [facility] Eosinophils Absolute 0.22 0.00 - 0.50 10*3/uL LAB HEMATOLOGY METHOD 03/03/2023 9:28 AM EST [facility] Basophils Absolute 0.07 0.00 - 0.10 10*3/uL LAB HEMATOLOGY METHOD 03/03/2023 9:28 AM EST [facility] Immature Granulocytes Absolute 0.05 0.00 - 0.06 10*3/uL LAB HEMATOLOGY METHOD 03/03/2023 9:28 AM EST [facility] Blood Venous blood specimen / Unknown Venipuncture / Unknown 03/03/2023 9:20 AM EST 03/03/2023 9:25 AM EST [facility] - 03/03/2023 9:28 AM EST Therapeutic decision making should be based on absolute values, rather than percentages. us Lisa Fuller DO LAB BLOOD ORDERABLES Final Re sult [facility] [address] [place] [address] * (ABNORMAL) CMP (03/03/2023 9:20 AM EST) Glucose, Plasma 109(H) 74 - 99 mg/dL 03/03/2023 10:06 AM [facility] BUN, Plasma 9 7 - 21 mg/dL 03/03/2023 10:06 AM [facility] Creatinine, Plasma 0.70 0.60 - 1.10 mg/dL 03/03/2023 10:06 AM [facility] BUN/Creatinine Ratio 13 03/03/2023 10:06 AM [facility] Sodium, Plasma 142 136 - 145 mmol/L 03/03/2023 10:06 AM [facility] Potassium, Plasma 4.5 3.7 - 4.8 mmol/L 03/03/2023 10:06 AM [facility] Chloride, Plasma 109(H) 97 - 107 mmol/L 03/03/2023 10:06 AM [facility] CO2, Plasma 23 22 - 29 mmol/L 03/03/2023 10:06 AM [facility] Anion Gap 10 6 - 16 mmol/L 03/03/2023 10:06 AM [facility] Total Calcium, Plasma 9.3 8.9 - 10.2 mg/dL 03/03/2023 10:06 AM [facility] Total Protein 6.8 6.3 - 7.9 g/dL 03/03/2023 10:06 AM [facility] Albumin, Plasma 4.0 3.5 - 5.2 g/dL 03/03/2023 10:06 AM [facility] AST, Plasma 18 10 - 35 U/L 03/03/2023 10:06 AM [facility] Comment:Hemolyzed, result ma y be falsely increased. ALT, Plasma 13 10 - 35 U/L 03/03/2023 10:06 AM [facility] Alkaline Phosphatase, Plasma 94 35 - 104 U/L 03/03/2023 10:06 AM [facility] Total Bilirubin, Plasma <0.2(L) 0.2 - 1.1 mg/dL 03/03/2023 10:06 AM EST [facility] eGFRcr 115.1 mL/min/1.7 3m*2 03/03/2023 10:06 AM EST [facility] Comment:Reported eGFRcr in m L/min/1.73m2 is based the CKD-EPI 2020 equation that does not use a race coefficient. Blood Venous blood specimen / Unknown Venipuncture / Unknown 03/03/2023 9:20 AM EST 03/03/2023 9:25 AM EST Lisa Fuller DO LAB BLOOD ORDERABLES Final Re sult [facility] [address] [place] [address] documented in this encounter Visit Diagnoses Diagnosis Chronic pain syndrome- Primary Chronic pancreatitis, unspecified pancreatitis type (CMS/HCC) documented in this encounter Administered Medications Inactive Administered Medications - up to 3 most recent administrations Medication Order MAR Action Action Date Dose Rate Site ketorolac (Toradol) injection 15 mg 15 mg, Intravenous, Once, 1 dose, On Thu03/03/23 at 0940, STAT Given 03/03/2023 9:47 AM EST 15 mg lactated Ringer's infusion 1,000 mL 1,000 mL, Intravenous, Once, 1 dose, On Thu03/03/23 at 0905, STAT New Bag 03/03/2023 9:20 AM EST 1,000 mL metoclopramide (Reglan) injection 10 mg 10 mg, Intravenous, Once, 1 dose, On Thu03/03/23 at 0905, STAT Given 03/03/2023 9:20 AM EST 10 mg oxyCODONE (Roxicodone) immediate release tablet 20 mg 20 mg, Oral, Once, 1 dose, On Thu03/03/23 at 0905, STAT Given 03/03/2023 9:47 AM EST 20 mg oxyCODONE (Roxicodone) immediate release tablet 20 mg 20 mg, Oral, Once, 1 dose, On Thu03/03/23 at 1045, STAT Given 03/03/2023 10:49 AM EST 20 mg prochlorperazine (Compazine) injection 10 mg 10 mg, Intravenous, Once, 1 dose, On 1/9/24 at 1000, STAT Given 03/03/2023 10:03 AM EST 10 mg documented in this encounter Active and Recently Administered Medications Times are shown in EST. Scheduled Medication Order 03/01/2023 03/02/2023 03/03/2023 ketorolac (Toradol) injection 15 mg (COMPLETED) 15 mg, Intravenous, Once, 1 dose, On 03/03/23 at 0940, STAT 0947 (Given - Provid er: Dipika Ball RN) lactated Ringer's infusion 1,000 mL (COMPLETED) 1,000 mL, Intravenous, Once, 1 dose, On Thu03/03/23 at 0905, STAT 0920 (New Bag - Prov ider: Dipika Ball RN)1051 (Stopped - Provider: Dipika Ball RN) metoclopramide (Reglan) injection 10 mg (COMPLETED) 10 mg, Intravenous, Once, 1 dose, On 03/03/23 at 0905, STAT 0920 (Given - Provid er: Dipika Ball RN) oxyCODONE (Roxicodone) immediate release tablet 20 mg (COMPLETED) 20 mg, Oral, Once, 1 dose, On e 03/03/23 at 0905, STAT 0947 (Given - Provid er: Dipika Ball RN) oxyCODONE (Roxicodone) immediate release tablet 20 mg (COMPLETED) 20 mg, Oral, Once, 1 dose, On e 03/03/23 at 1045, STAT 1049 (Given - Provid er: Dipika Ball RN) prochlorperazine (Compazine) injection 10 mg (COMPLETED) 10 mg, Intravenous, Once, 1 dose, On Thu03/03/23 at 1000, STAT 1003 (Given - Provid er: Dipika Ball RN) documented in this encounter Additional Health Concerns Assessment Noted Time A fall risk assessment has been complete d for the patient 11/21/2020 2:30 PM EDT A Body Mass Index follow-up plan has been documented for the patient 02/24/2023 11:55 AM EST documented as of this encounter Care Teams Graduation Coach Relationship Specialty Start Date End Date Rafiq Song DO [address] [place] [address] PCP - General 01/06/23 03/16/23 documented as of this encounter
--- OUTSIDE RECORDS SUMMARY | 2024-02-03 15:15 | XMS_ITS | Encounter Summary ---
Author Organization [facility] Address [address] [place] [address] Care Team Providers Care Slope Tender Name Role Phone Rafiq Song Primary Care Provider [phone] Encounter Details Date Type Department Care Team (Latest Contact Info) Description 03/10/2023 Travel Social History Tobacco Use Types Packs/Day [...] drink first t caleb in the morning (EYE-TRANSPORT NURSE) to steady your nerves or to get [...] documented as of this encounter Care Teams Slope Tender Relationship Specialty Start Date End Date Rafiq Song DO [address] [place] [address] PCP - General 01/06/23 03/16/23 documented as of this encounter
--- OUTSIDE RECORDS SUMMARY | 2024-02-03 15:15 | XMS_ITS | Encounter Summary ---
Author Organization [facility] Address [address] [place] [address] Care Team Providers Care Chef Concierge Name Role Phone Rafiq Song Primary Care Provider [phone] Encounter Details Date Type Department Care Team (Latest Contact Info) Description 03/08/2023 Travel Social History Tobacco Use Types Packs/Day [...] slept in a longterm (including now)? 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-GAME DESIGNER/CREATIVE DIRECTOR) to steady your nerves or to [...] documented as of this encounter Care Teams Chef Concierge Relationship Specialty Start Date End Date Rafiq Song DO [address] [place] [address] PCP - General 01/06/23 03/16/23 documented as of this encounter
--- OUTSIDE RECORDS SUMMARY | 2024-02-03 15:15 | XMS_ITS | Encounter Summary ---
Author Organization [facility] Address [address] [place] [address] Care Team Providers Care Clothes Drier Assembler Name Role Phone Rafiq Song Primary Care Provider [phone] Encounter Details Date Type Department Care Team (Latest Contact Info) Description 03/07/2023 Travel Social History Tobacco Use Types Packs/Day [...] drink first t caleb in the morning (EYE-PRODUCTION INTERN) to steady your nerves or to get [...] documented as of this encounter Care Teams Clothes Drier Assembler Relationship Specialty Start Date End Date Rafiq Song DO [address] [place] [address] PCP - General 01/06/23 03/16/23 documented as of this encounter
--- OUTSIDE RECORDS SUMMARY | 2024-02-03 15:16 | XMS_ITS | Encounter Summary ---
Author Organization [facility] Address [address] [place] [address] Care Team Providers Care Oil Gauger Name Role Phone Rafiq Song Primary Care Provider [phone] Encounter Details Date Type Department Care Team (Latest Contact Info) Description 02/20/2023 Travel Social History Tobacco Use Types Packs/Day [...] drink first t caleb in the morning (EYE-ADULT MANAGER) to steady your nerves or to [...] documented as of this encounter Care Teams Oil Gauger Relationship Specialty Start Date End Date Rafiq Song DO [address] [place] [address] PCP - General 01/06/23 03/16/23 documented as of this encounter
--- OUTSIDE RECORDS SUMMARY | 2024-02-03 15:16 | XMS_ITS | Encounter Summary ---
Author Organization Healthcare Address [address] [place] [address] Care Team Providers Care Pickling Drum Operator Name Role Phone Elmo Escobar MD Primary Care Provider [phone] Rafiq Song DO Primary Care Provider [phone] Reason for Visit * Reason Comments Other Outside PCP Encounter Details Date Type Department Care Team (Late st Contact Info) Description 01/02/2023 Patient Outreach [facility] [address] [place] [phone] Kitty Root, [employer] [place] [address] Other (Outside PCP) Social History Tobacco Use Types Packs/Day Years Used Date Smoking Tobacco: Every Day Cigarettes 1 15 Smokeless Tobacco: Never Alcohol Use Standard Drinks/Week Comments Yes 0 (1 standard drink = 0.6 oz pur e alcohol) Humiliation, Afraid, Rape, and Kick questionnair e Answer Date Recorded Within the last year, have y ou been afraid of your partner or ex-partner? No 12/29/2022 Within the last year, have y ou been humiliated or emotionally abused in other ways by your partner or ex-partner? No Within the last year, have y ou been kicked, hit, slapped, or otherwise physically hurt by your partner or ex-partner? No 12/29/2022 Within the last year, have y ou been raped or forced to have any kind of sexual activity by your partner or ex-partner? No 12/29/2022 PHQ-2 Answer Date Recorded Patient Health Questionnaire-2 Score 2 11/21/2020 Hunger Vital Sign Answer Date Recorded Within the past 12 months, y ou worried that your food would run out before you got the money to buy more. Never true 12/30/19 23 Within the past 12 months, t he food you bought just didn't last and you didn't have money to get more. Never true 12/29/2022 PRAPARE - Transportation Answer Date Re corded In the past 12 months, has l ack of transportation kept you from medical appointments or from getting medications? No 07/2022 In the past 12 months, has l ack of transportation kept you from meetings, work, or from getting things needed for daily living? No 12/29/2022 Housing Stability Vital Sign Answer Dennis e Recorded In the last 12 months, was t here a time when you were not able to pay the mortgage or rent on time? No 12/29/2022 Number of Places Lived in the Last Year Not on f ile 12/29/2022 In the last 12 months, was t here a time when you did not have a steady place to sleep or slept in a halfway (including now)? No 12/29/2022 CAGE ASSESSMENT Answer Date Recorded Cage unable to access Not on file 12/28/2022 Maximum number of drinks you had on a given occasion in the last month? 5 or more drinks 12/28/2022 How many alcoholic Beverages do you typically drink in a week? 8 - 14 per week 12/28/2022 Have you ever felt you shoul d CUT down on your drinking? 1 12/28/2022 Have you been ANNOYED by peo ple criticizing your drinking? 0 12/28/2022 Have you felt GUILTY about your drinking? 0 12/28/2022 Have you had a drink first t caleb in the morning (EYE-TRANSPORT SPECIALIST) to steady your nerves or to get rid of a hangover? 0 12/28/2022 CAGE Questionnaire Score 1 023 Utilities Answer Date Recorded In the past 12 months has th e electric, gas, oil, or water company threatened to shut off services in your home? No 12/29/2022 Comments No Sex and Gender Information Value Date Recorded Sex Assigned at Female 11/30/2020 9:14 AM EDT Legal Sex Female 8:12 PM EDT Gender Identity Female 11/30/2020 9:14 AM EDT Sexual Orientation Straight 11/30/2020 9: 14 AM EDT documented as of this encounter Miscellaneous Notes * Progress Notes - Kitty Root LPN - 01/02/2023 10:35 AM EST 01/02/2023: Outside PCP call Acute on chronic pancreatitis 01/02/2023: Call #1 negative 01/05/2023: Call #2 negative 01/06/2023: Call #3 Positive 01/06/2023: Called patient regarding follow up appointment w/PCP after recent hospitalization. Patient declinesassistance with scheduling appointment at this time. Patient stated she saw her PCP Dr. Rafiq Baez for hospital follow up appointment. Medications reviewed with patient and patient did nothave any other questions or concerns at time of nurse call. Per AVS: START taking: nicotine (Nicoderm CQ) polyethylene glycol (Miralax) CHANGE how you take: oxyCODONE (Roxicodone) STOP taking: promethazine 25 MG tablet (Phenergan) documented in this encounter Plan of Treatment Not on file documented as of this encounter Visit Diagnoses Not on filedocumented in this encounter Additional Health Concerns Assessment Noted Time A fall risk assessment has been complete d for the patient 11/21/2020 2:30 PM EDT A Body Mass Index follow-up plan has been documented for the patient 01/01/2023 1:35 PM EST documented as of this encounter Care Teams Pickling Drum Operator Relationship Specialty Start Date End Date Elmo Escobar MD PCP - General 10/18/20 01/05/23 Rafiq Song DO [address] [place] [address] PCP - General 01/06/23 03/16/23 documented as of this encounter
--- OUTSIDE RECORDS SUMMARY | 2024-02-03 15:16 | XMS_ITS | Encounter Summary ---
Author Organization [facility] Address [address] [place] [address] Care Team Providers Care Record Maker Name Role Phone Elmo Escobar MD Primary Care Provider [phone] Encounter Details Date Type Department Care Team (Latest Contact Info) Description 12/29/2022 Travel Social History Tobacco Use Types Packs/Day [...] slept in a custodial (including now)? No 12/29/2022 CAGE ASSESSMENT Answer [...] drink first t caleb in the morning ([employer]OR) to steady your nerves or to get rid of a hangover? 0 12/28/2022 CAGE Questionnaire Score 1 023 Utilities Answer Date Recorded In the past 12 months has th e [employer], gas, oil, or water company threatened to [...] documented as of this encounter Care Teams Record Maker Relationship Specialty Start Date End Date Elmo Escobar MD PCP - General 10/18/20 01/05/23 documented as of this encounter
--- OUTSIDE RECORDS SUMMARY | 2024-02-03 15:16 | XMS_ITS | Encounter Summary ---
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 Role Phone NohemiRafiq Primary Care Provider [phone] Reason for Visit * Reason Comments Abdominal Pain * Auth/Cert (Routine) Specialty Diagnoses / Procedures Referred By Contac t Referred To Contact Diagnoses Alcohol-induced chronic pancreatitis (CMS/HCC) Intractable nausea and vomiting Acute on chronic pancreatitis (CMS/HCC) Javier Pittman MD [address] [place] [address] Phone: tel: fax: [facility] [address] [place] [address] Phone: tel: Referral ID Status Reason Start Date Expiration Date Visits Re quested Visits Authorized [id number] 1 1 Encounter Details Date Type Department Care Team (Late st Contact Info) Description 02/18/2023 8:58 PM EST - 02/19/2023 12:29 AM EST Emergency [facility] Emergency [facility] [address] [place] [address] Benjamin Munguia MD [address] [place] [address] Kalpesh Jimenes MD [address] [place] [address] Acute on chronic pancreatitis (CMS/HCC) (Primary Dx) [...] drink first t caleb in the morning ([employer]CIAL [employer]ER) to steady your nerves or to get rid of a hangover? 0 02/20/2023 CAGE Questionnaire Score 0 023 Utilities Answer Date Recorded In the past 12 months has th e [employer], gas, oil, or water [employer] threatened to shut off services in your [...] Sign Reading Time Taken Comments Blood Pressure 129/79 02/18/2023 8:28 PM EST Pulse 132 02/18/2023 8:28 PM EST Temperature 36.7 ??C (98.1 ??F) 02/18/2023 8:28 PM ES T Respiratory Rate 22 02/18/2023 8:28 PM EST Oxygen Saturation 95% 02/18/2023 8:28 PM EST Inhaled Oxygen Concentration - - Weight 106 kg (234 lb) 02/18/2023 9:19 PM EST Height 165.1 cm (5' 5 ) 02/18/2023 9:19 PM EST Body Mass Index 38.94 02/18/2023 9:19 PM EST documented in this encounter Discharge Instructions * Discharge Instructions* Sarahy Dleacruz PA - 02/19/2023 12:13 AM EST Thank you for trusting us with your care. You were evaluated in the emergency department today. I have prescribed promethazine for nausea and vomiting. Please take as directed. Please continue to take your home medications as directed. Please return to the ER if you experience worsening of symptoms, new symptoms, or anything that concerns you. * Attachments The following attachments cannot be sent through Care Everywhere. * Acute Pancreatitis, Discharge Instructions for (Jordanian) documented in this encounter Medications at Time of Discharge pantoprazole (Protonix) 40 MG EC tablet Take 1 tablet (40 mg) by mouth 1 (one) time each day. Do not crush, chew, or split. pancrelipase, Gwe-Amoo-Fcnq, (Creon) [id number] units capsule Take 1 capsule by mouth 3 (three) times a day with meals. 90 capsule 1 01/01/2023 4 acetaminophen (Tylenol) 500 MG tablet Take [...] each day. Do not crush or chew. 4 famotidine (Pepcid) 20 MG tablet Take 1 tablet (20 mg) by mouth 2 (two) times a day if needed for heartburn. 4 LORazepam (Ativan) 2 MG tablet Take 1 tablet (2 mg) by mouth 2 (two) times a day. 4 MELATONIN PO Take 10 mg by mouth at night if needed (sleep). 4 naloxone (Narcan) 4 mg/0.1 mL nasal spray 1. Give 1 spray in nostril for no/slow breathing or cannot wake after opioid use 2. Call 911 3. Repeat in other nostril if symptoms continue 1 spray 1 each 11/14/2022 3 nicotine (Nicoderm CQ) 21 MG/24HR patch Place 1 patch on the skin 1 (one) time each day over 24 hours. 30 patch 01/01/2023 3 ondansetron ODT (Zofran-ODT) 4 MG disintegrating tablet Take 1 tablet (4 mg) by mouth every 8 (eight) hours if needed for nausea or vomiting. 4 pregabalin (Lyrica) 100 MG capsule Take 1 capsule (100 mg) by mouth 3 (three) times a day. 4 prochlorperazine (Compazine) 10 MG tablet Take 1 tablet (10 mg) by mouth every 6 (six) hours if needed for nausea or vomiting. 3 promethazine (Phenergan) 25 MG tablet Take 1 tablet (25 mg) by mouth every 6 (six) hours if needed for nausea or vomiting. 30 tablet 02/19/2023 4 sucralfate (Carafate) 1 GM/10ML suspension Take 10 mL (1 g) by mouth 4 (four) times a day. 4 documented as of this encounter Miscellaneous Notes * ED Notes - Leta Avery RN - 02/18/2023 10:53 PM EST Annalisa Roca RN handoff report when moved pt to room 5 Leta Avery RN 02/18/23 [id number] * ED Notes - Leta Avery RN - 02/18/2023 10:04 PM EST PT knows we need a urine sample, don't have to urinate yet, but will collect when she goes Leta Avery RN 02/18/23 0847 * ED Provider Notes - Sarahy Delacruz PA - 02/18/2023 7:40 PM EST Images from the original note were not included. 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 Patient states she has been unable to tolerateby mouth over the past 2 days. Patient states that her symptoms began [place] morning, and have remained since. She states she tried to take Zofran which did not help. Patient reports a longstanding history of chronic pancreatitis with frequent flares. She states she has been unable to take her pain medication. Vomitus is nonbloody nonbilious. She is also having diarrhea which is nonbloody. Shedenies fever, chills, shortness of breath, chest pain, leg swelling. She denies recent alcohol use. No data recorded Patient History Past Medical History: Diagnosis Date Anxiety Arthritis Depression Fibromyalgia Gastric erosions 04/19/2021 GERD (gastroesophageal reflux disease) Hypertension Intentional overdose ([facility]) 12/20/2021 Nicotine dependence Obesity Pancreatitis Past Surgical History: Procedure Laterality Date CHOLECYSTECTOMY ERCP ESOPHAGOGASTRODUODENOSCOPY HAND SURGERY Family History Problem Relation Name Age of Onset Hypertension Mother No Known Problems Father Tobacco Use Smoking status: Every Day Packs/day: 1.00 Years: 15.00 Additional pack years: 0.00 Total pack years: 15.00 Types: Cigarettes Smokeless tobacco: Never Vaping Use Vaping Use: Never used Substance Use Topics Alcohol use: Yes Drug use: Yes Types: Marijuana Comment: a few times a month Immunization History Immunization History: not reviewed Allergies: Allergies Allergen Reactions Droperidol Other - please document in the comment field Experienced an acute dystonic reaction treated with diphenhydramine Tramadol Rash and Dizziness Patient described previously experiencing panic attacks too. Review of Systems Review of Systems Constitutional: Positive for appetite change and fatigue. Negative for fever. HENT: Negative for congestion, hearing loss and sinus pain. Eyes: Negative for photophobia and visual disturbance. Respiratory: Negative for cough, shortness of breath and wheezing. Cardiovascular: Negative for chest pain, palpitations and leg swelling. Gastrointestinal: Positive for abdominal pain, diarrhea, nausea and vomiting. Negative for abdominal distention and constipation. Genitourinary: Negative for dysuria, frequency and urgency. Musculoskeletal: Negative for arthralgias, neck pain and neck stiffness. Skin: Negative for rash and wound. Physical Exam ED Triage Vitals [02/18/232027] Temp Heart Rate Resp BP 36.7 ??C (98.1 ??F) (!) 132 22 129/79 SpO2 Temp Source Heart Rate Source Patient Position 95 % Oral -- Sitting BP Location FiO2 (%) Right arm -- Physical Exam Vitals and nursing note reviewed. Constitutional: General: She is in acute distress. Appearance: She is not ill-appearing, toxic-appearing or diaphoretic. HENT: Head: Normocephalic and atraumatic. Mouth/Throat: Mouth: Mucous membranes are moist. Pharynx: Oropharynx is clear. Eyes: Extraocular Movements: Extraocular movements intact. Cardiovascular: Rate and Rhythm: Regular rhythm. Tachycardia present. Heart sounds: No murmur heard. No friction rub. No gallop. Pulmonary: Effort: Pulmonary effort is normal. Breath sounds: Normal breath sounds. No wheezing or rhonchi. Abdominal: General: Bowel sounds are normal. Palpations: Abdomen is soft. Tenderness: There is abdominal tenderness in the left upper quadrant. Skin: General: Skin is warm and dry. Capillary Refill: Capillary refill takes less than 2 seconds. Neurological: General: No focal deficit present. Mental Status: She is alert and oriented to person, place, and time. Psychiatric: Mood and Affect: Mood is anxious. Behavior: Behavior normal. ED Course & MDM ED Course as of 02/19/23 0929 Annabel Feb 19, 2023 0926 CBC w/diff(!) Within normal limits [] 0926 CMP(!) Mild hyponatremia, CO2 13, elevated anion gap to 21, mildly elevated LFTs without elevation of bilirubin [] 0928 Phosphorus Within normal limits [] 0928 Magnesium Within normal limits [] 0928 Lipase: 20 Within normal limits [] 0929 Test: Negative [] ED Course User Index [] Sarahy Delacruz PA Clinical Impressions as of 02/19/23 0929 Acute on chronic pancreatitis (CMS/HCC) - Medical Decision Making Patient was initially evaluated in triage, care continued by myself, Sarahy Delacruz PA-C in coordination with Dr. Munguia. In summary, patient is a 37-year-old female with left upper quadrant pain, nausea and vomiting for 2 days. She has a longstanding history of chronic pancreatitis. Patient afebrile, hemodynamically stable, although tachycardic, in no respiratory distress, and nontoxic in appearance upon arrival & throughout the entire stay in the ED. On physical examination, patient appeared uncomfortable, lungs clear to auscultation bilaterally, heart sounds normal although tachycardic, abdominal exam significant for left upper quadrant pain on palpation, neuro exam within normal limits. DDx includes acute on chronic pancreatitis, SBO, AAA, appendicitis, DKA, pancreatic pseudocyst, viral gastroenteritis among others. Ruling out the most morbid conditions drove my assessment. External notes independently obtained and reviewed, pertinent for multiple ED presentations for abdominal pain with vomiting, treated with opioids and discharge home. Laboratory evaluation pertinent for mild hyponatremia, CO2 13, elevated anion gap to 21, elevated ALT, elevated ALP. Other labs within normal limits. Please see ED course for details. Reassessment: Patient received 4 mg morphine, 4 mg Zofran and 1 L LR bolus initially. On re-evaluation, patient states that she has had no pain relief with morphine and the Zofran also did not provide nausea relief. I provided a dose of 5 mg oxycodone and 10 mg Reglan. She reports the Reglan did help her nausea, although the oxycodone did not help her pain. I have then provided a dose of 1 mg hydromorphone and will reassess. I originally ordered a CT abdomen pelvis due to patient's significant pain as well as CMP laboratory abnormalities, after explaining to the patient that I have ordered this, she declines due to radiation risk infrequent history of CT scans in the past. Through shared dec ision-making, we decided to forego the CT scan if symptoms are improved. Patient pain significantlyimproved after Dilaudid injection. She states that the pain has gone from stabbing to dull achy feeling. She states her nausea is completely gone. Patient states she feels well enough to go home, shedoes request her dose of Lyrica which she takes for her chronic compartment syndrome. Patient states she threw it up this morning and does not have enough at home. I will provide her with this dose of medication. I have given strict return precautions. In order to fully explore differential these tests and treatments were ordered. Orders Placed This Encounter Procedures CMP Magnesium Phosphorus Lipase CBC w/diff hCG qualitative Insert peripheral IV Medications ondansetron (Zofran) injection 4 mg (4 mg Intravenous Given 02/18/232158) morphine PF 4 mg (4 mg Intravenous Given 02/18/232157) oxyCODONE (Roxicodone) immediate release tablet 5 mg (5 mg Oral Given 02/18/232230) metoclopramide (Reglan) injection 10 mg (10 mg Intravenous Given 02/18/232229) HYDROmorphone (Dilaudid) injection 1 mg (1 mg Intravenous Given 02/18/232330) pregabalin (Lyrica) capsule 300 mg (300 mg Oral Given 02/19/239) oxyCODONE (Roxicodone) immediate release tablet 5 mg (5 mg Oral Given 02/19/23 0023) Given improvement of patient's symptoms, hemodynamic stability, it was felt that the patient was safe to be discharged home. Patient was comfortable and in agreement with this plan. Instructed to f/shemarith PCP and given strict return precautions prior to discharge from ED. DISPOSITION: Discharge ED Prescriptions Medication Sig Dispense Start Date End Date Auth. Provider promethazine (Phenergan) 25 MG tablet Take 1 tablet (25 mg) by mouth every 6 (six) hours if needed for nausea or vomiting. 30 tablet 02/19/2023 03/21/2023 Sarahy Delacruz PA Discharge Instructions Thank you for trusting us with your care. You were evaluated in the emergency department today. I have prescribed promethazine for nausea and vomiting. Please take as directed. Please continue to take your home medications as directed. Please return to the ER if you experience worsening of symptoms, new symptoms, or anything that concerns you. Discharge References/Attachments Acute Pancreatitis, Discharge Instructions for (Jordanian) Disposition Discharge AVS (Printed 02/19/2023) Follow-Ups: Follow up with Rafiq Song DO Sign Off Checklist Clinical Impression: Complete ED Disposition: Complete - Sarahy Delacruz PA 02/19/23 8355 Cosigned by Benjamin Munguia MD at 02/19/2023 2:51 PM EST Associated attestation - Benjamin Munguia MD - 02/19/2023 2:51 PM EST I attest to being involved in providing substantive part of the medical decision making in patient care. * ED Triage Notes - Hunter Good RN - 02/18/2023 7:40 PM EST Patient presents to ED c/o abdominal pain since 02/15 which has been worsening since yesterday. Patient reports severe, stabbing pain with vomiting. Patient reports unable to tolerate PO. Last [id number] ago. Has not been able to get in with pain specialist d/t holidays documented in this encounter Plan of Treatment Not on file documented as of this encounter Procedures Procedure Name Priority Date/Time Associated Diagnosis Comments CBC WITH AUTO DIFFERENTIAL STAT 02/18/2023 9:48 PM EST TEST QUALITATIVE PLASMA STAT 02/18/2023 9:48 PM EST PHOSPHORUS, PLASMA STAT 02/18/2023 9: 48 PM EST MAGNESIUM, PLASMA STAT 02/18/2023 9:4 8 PM EST LIPASE, PLASMA STAT 02/18/2023 9:48 PM EST COMPREHENSIVE METABOLIC PANEL, PLASMA STAT 02/18/2023 9:48 PM EST documented in this encounter Results * hCG qualitative (02/18/2023 9:48 PM EST) Test Negative Negative 02/18/2023 10:18 PM EST [facility] Blood Venous blood specimen / Unknown Venipuncture / Unknown 02/18/2023 9:48 PM EST 02/18/2023 9:51 PM EST Narrative [facility] - 02/18/2023 10:18 PM EST Reference Range: Males and non- females: Negative. Sarahy NAJERA LAB BLOOD ORDERABLES Final Result [facility] [address] [place] [address] * (ABNORMAL) CBC w/diff (02/18/2023 9:48 PM EST) WBC Count 7.81 3.70 - 10.30 10*3/uL LAB HEMATOLOGY METHOD 02/18/2023 9:54 PM EST [facility] RBC Count 5.34(H) 3.90 - 5.20 10*6/uL LAB HEMATOLOGY METHOD 02/18/2023 9:54 PM EST [facility] HGB 14.0 11.2 - 15.7 g/dL LAB HEMATOLOGY METHOD 02/18/2023 9:54 PM EST [facility] HCT 42.8 34.0 - 45.0 % LAB HEMATOLOGY METHOD 02/18/2023 9:54 PM EST [facility] Platelet Count 382(H) 155 - 369 10*3/uL LAB HEMATOLOGY METHOD 02/18/2023 9:54 PM EST [facility] MCV 80 79 - 98 fL LAB HEMATOLOGY METHOD 02/18/2023 9:54 PM EST [facility] MCH 26.2 26.0 - 32.0 pg LAB HEMATOLOGY METHOD 02/18/2023 9:54 PM EST [facility] MCHC 32.7 30.7 - 35.5 g/dL LAB HEMATOLOGY METHOD 02/18/2023 9:54 PM EST [facility] RDW 16.7(H) 11.5 - 14.5 % LAB HEMATOLOGY METHOD 02/18/2023 9:54 PM EST [facility] MPV 9.8 8.8 - 12.5 fL LAB HEMATOLOGY METHOD 02/18/2023 9:54 PM EST [facility] nRBC 0.0 <=0.0 per 100 WBCs LAB HEMATOLOGY METHOD 02/18/2023 9:54 PM EST [facility] Differential Type Automated LAB HEMATOLOGY METHOD 02/18/2023 9:54 PM EST [facility] Neutrophils % 87.0 % LAB HEMATOLOGY METHOD 02/18/2023 9:54 PM [facility] Lymphocytes % 11.0 % LAB HEMATOLOGY METHOD 02/18/2023 9:54 PM EST [facility] Monocytes % 1.0 % LAB HEMATOLOGY METHOD 02/18/2023 9:54 PM EST [facility] Eosinophils % 0.0 % LAB HEMATOLOGY METHOD 02/18/2023 9:54 PM EST [facility] Basophils % 0.0 % LAB HEMATOLOGY METHOD 02/18/2023 9:54 PM EST [facility] Immature Granulocytes % 1.0 % LAB HEMATOLOGY METHOD 02/18/2023 9:54 PM EST [facility] Neutrophils Absolute 6.78(H) 1.60 - 6.10 10*3/uL LAB HEMATOLOGY METHOD 02/18/2023 9:54 PM EST [facility] Lymphocytes Absolute 0.87(L) 1.20 - 3.90 10*3/uL LAB HEMATOLOGY METHOD 02/18/2023 9:54 PM EST [facility] Monocytes Absolute 0.08(L) 0.30 - 0.90 10*3/uL LAB HEMATOLOGY METHOD 02/18/2023 9:54 PM EST [facility] Eosinophils Absolute 0.01 0.00 - 0.50 10*3/uL LAB HEMATOLOGY METHOD 02/18/2023 9:54 PM EST [facility] Basophils Absolute 0.02 0.00 - 0.10 10*3/uL LAB HEMATOLOGY METHOD 02/18/2023 9:54 PM EST [facility] Immature Granulocytes Absolute 0.05 0.00 - 0.06 10*3/uL LAB HEMATOLOGY METHOD 02/18/2023 9:54 PM EST [facility] Blood Venous blood specimen / Unknown Venipuncture / Unknown 02/18/2023 9:48 PM EST 02/18/2023 9:51 PM EST Narrative [facility] - 02/18/2023 9:54 PM EST Therapeutic decision making should be based on absolute values, rather than percentages. us Sarahy NAJERA LAB BLOOD ORDERABLES Final Result [facility] [address] [place] [id number] * Lipase (02/18/2023 9:48 PM EST) Lipase, Plasma 20 19 - 63 U/L 02/18/2023 10:18 PM EST [facility] Blood Venous blood specimen / Unknown Venipuncture / Unknown 02/18/2023 9:48 PM EST 02/18/2023 9:51 PM EST us Sarahy NAJERA LAB BLOOD ORDERABLES Final Result Performing Organization Address City/[facility]/ZIP Co de Phone Number [facility] [address] [place] [address] * Phosphorus (02/18/2023 9:48 PM EST) Phosphorus, Plasma 4.1 2.5 - 4.5 mg/dL 02/18/2023 10:18 PM EST [facility] Blood Venous blood specimen / Unknown Venipuncture / Unknown 02/18/2023 9:48 PM EST 02/18/2023 9:51 PM EST Sarahy NAJERA LAB BLOOD ORDERABLES Final Result Performing Organization Address City/[facility]/ZIP Co de Phone Number [facility] [address] [place] [address] * Magnesium (02/18/2023 9:48 PM EST) Magnesium, Plasma 2.3 1.9 - 2.4 mg/dL 02/18/2023 10:18 PM EST [facility] Blood Venous blood specimen / Unknown Venipuncture / Unknown 02/18/2023 9:48 PM EST 02/18/2023 9:51 PM EST Sarahy NAJERA LAB BLOOD ORDERABLES Final Result Performing Organization Address City/[facility] Co de Phone Number [facility] [address] [place] [address] * (ABNORMAL) CMP (02/18/2023 9:48 PM EST) Glucose, Plasma 125(H) 74 - 99 mg/dL 02/18/2023 10:18 PM EST [facility] BUN, Plasma 7 7 - 21 mg/dL 02/18/2023 10:18 PM EST [facility] Creatinine, Plasma 0.48(L) 0.60 - 1.10 mg/dL 02/18/2023 10:18 PM [facility] BUN/Creatinine Ratio 15 02/18/2023 10:18 PM [facility] Sodium, Plasma 134(L) 136 - 145 mmol/L 02/18/2023 10:18 PM [facility] Potassium, Plasma 4.1 3.7 - 4.8 mmol/L 02/18/2023 10:18 PM [facility] Chloride, Plasma 100 97 - 107 mmol/L 02/18/2023 10:18 PM [facility] CO2, Plasma 13(L) 22 - 29 mmol/L 02/18/2023 10:18 PM [facility] Anion Gap 21(H) 6 - 16 mmol/L 02/18/2023 10:18 PM [facility] Total Calcium, Plasma 9.9 8.9 - 10.2 mg/dL 02/18/2023 10:18 PM [facility] Total Protein 8.4(H) 6.3 - 7.9 g/dL 02/18/2023 10:18 PM [facility] Albumin, Plasma 4.7 3.5 - 5.2 g/dL 02/18/2023 10:18 PM [facility] AST, Plasma 24 10 - 35 U/L 02/18/2023 10:18 PM [facility] Comment:Hemolyzed, result ma y be falsely increased. ALT, Plasma 44(H) 10 - 35 U/L 02/18/2023 10:18 PM [facility] Alkaline Phosphatase, Plasma 148(H) 35 - 104 U/L 02/18/2023 10:18 PM [facility] Total Bilirubin, Plasma 0.4 0.2 - 1.1 mg/dL 02/18/2023 10:18 PM [facility] eGFRcr 126.1 mL/min/1.7 3m*2 02/18/2023 10:18 PM [facility] Comment:Reported eGFRcr in m L/min/1.73m2 is based the CKD-EPI 2020 equation that does not use a race coefficient. Blood Venous blood specimen / Unknown Venipuncture / Unknown 02/18/2023 9:48 PM EST 02/18/2023 9:51 PM EST us Sarahy NAJERA LAB BLOOD ORDERABLES Final Result [facility] [address] [place] [address] documented in this encounter Visit Diagnoses Diagnosis Acute on chronic pancreatitis (CMS/HCC)- Primary documented in this encounter Administered Medications Inactive Administered Medications - up to 3 most recent administrations Medication Order MAR Action Action Date Dose Rate Site HYDROmorphone (Dilaudid) injection 1 mg 1 mg, Intravenous, Once, 1 dose, On Thu02/18/23 at 2300, STAT Given 02/18/2023 11:31 PM EST 1 mg lactated Ringer's infusion 1,000 mL 1,000 mL, Intravenous, Once (Bolus), On Thu02/18/23 at 2120, STAT New Bag 02/18/2023 9:58 PM EST 1,000 mL metoclopramide (Reglan) injection 10 mg 10 mg, Intravenous, Once, 1 dose, On Thu02/18/23 at 2215, STAT Given 02/18/2023 10:30 PM EST 10 mg morphine PF 4 mg 4 mg, Intravenous, Once, 1 dose, On Thu02/18/23 at 2120, STAT Given 02/18/2023 9:58 PM EST 4 mg ondansetron (Zofran) injection 4 mg 4 mg, Intravenous, Once, 1 dose, On Thu02/18/23 at 2120, STAT Given 02/18/2023 9:59 PM EST 4 mg oxyCODONE (Roxicodone) immediate release tablet 5 mg 5 mg, Oral, Once, 1 dose, On Thu02/18/23 at 2215, STAT Given 02/18/2023 10:31 PM EST 5 mg oxyCODONE (Roxicodone) immediate release tablet 5 mg 5 mg, Oral, Once, 1 dose, On Annabel 02/19/23 at 0015, STAT Given 02/19/2023 12:23 AM EST 5 mg pregabalin (Lyrica) capsule 300 mg 300 mg, Oral, Once, 1 dose, On Annabel 02/19/23 at 0000, Routine Given 02/19/2023 12:19 AM EST 300 mg documented in this encounter Active and Recently Administered Medications Times are shown in EST. Scheduled Medication Order 02/17/2023 02/18/2023 02/19/2023 HYDROmorphone (Dilaudid) injection 1 mg (COMPLETED) 1 mg, Intravenous, Once, 1 dose, On Thu02/18/23 at 2300, STAT 2331 (Given - Provider: Chanelle Dave) lactated Ringer's infusion 1,000 mL 1,000 mL, Intravenous, Once (Bolus), On Thu02/18/23 at 2120, STAT 2158 (New Bag - Provider: Leta Avery RN) 0024 (Stopped - Provider: Chanelle Dave) metoclopramide (Reglan) injection 10 mg (COMPLETED) 10 mg, Intravenous, Once, 1 dose, On Thu02/18/23 at 2215, STAT 2230 (Given - Provider: Leta Avery RN) morphine PF 4 mg (COMPLETED) 4 mg, Intravenous, Once, 1 dose, On Thu02/18/23 at 2120, STAT 2158 (Given - Provider: Leta Avery, CHANDNI) ondansetron (Zofran) injection 4 mg (COMPLETED) 4 mg, Intravenous, Once, 1 dose, On Thu02/18/23 at 2120, STAT 2159 (Given - Provider: Leta Avery, CHANDNI) oxyCODONE (Roxicodone) immediate release tablet 5 mg (COMPLETED) 5 mg, Oral, Once, 1 dose, On Thu02/18/23 at 2215, STAT 2231 (Given - Provider: Leta Avery, CHANDNI) oxyCODONE (Roxicodone) immediate release tablet 5 mg (COMPLETED) 5 mg, Oral, Once, 1 dose, On Annabel 02/19/23 at 0015, STAT 0023 (Given - Provid er: Chanelle Dave) pregabalin (Lyrica) capsule 300 mg (COMPLETED) 300 mg, Oral, Once, 1 dose, On Ann[place] 02/19/23 at 0000, Routine 0019 (Given - Provid er: Chanelle Dave) documented in this encounter Additional Health Concerns Assessment Noted Time A fall risk assessment has been complete d for the patient 11/21/2020 2:30 PM EDT A Body Mass Index follow-up plan has been documented for the patient 01/01/2023 1:35 PM EST documented as of this encounter Care Teams [employer] Sh[employer] Supervisor Relationship Specialty Start Date End Date Rafiq Song DO [address] [place] [address] PCP - General 01/06/23 03/16/23 documented as of this encounter
--- OUTSIDE RECORDS SUMMARY | 2024-02-03 15:16 | XMS_ITS | Encounter Summary ---
Author Organization [facility] Address [address] [place] [address] Care Team Providers Care Security Assurance Specialist Name Role Phone Nohemi Rafiq Tato ALVAREZ Primary Care Provider [phone] Reason for Referral * Consultation (Urgent) - Authorized Specialty Diagnoses / Procedures Referred By Susy burks Referred To Contact Gastroenterology Diagnoses Alcohol-induced chronic pancreatitis (CMS/HCC) Jessica Péerz MD [address] [place] [address] Phone: tel: fax: [facility] [address] [place] [address] Phone: tel: fax: Referral ID Status Reason Start Date Expiration Date Visits Requested Visits Authorized [id number] Authorized Specialty Services Required 3 08/23/2024 1 1 Scheduling Instructions It has to be with pancreas clinic to evaluate for endoscopy guided celiac plexus block Reason for Visit * Reason Comments Abdominal Pain * Auth/Cert (Routine) Specialty Diagnoses / Procedures Referred By Susy burks Referred To Contact Diagnoses Alcohol-induced chronic pancreatitis (CMS/HCC) Intractable nausea and vomiting Acute on chronic pancreatitis (CMS/HCC) Javier Pittman MD [address] [place] [address] Phone: tel: fax: [facility] [address] [place] [address] Phone: tel: Referral ID Status Reason Start Date Expiration Date Visits Re quested Visits Authorized [id number] 1 1 Encounter Details Date Type Department Care Team (Latest Contact Info) Description 02/20/2023 1:31 AM EST - 02/24/2023 1:46 PM EST Hospital Encounter [facility] [address] [place] [address] George Martinez MD [address] [place] [address] Javier Pittman MD [address] [place] [address] Radha Lewis MD [address] [place] [address] Jessica Pérez MD [address] [place] [address] Boy Magdaleno MD [address] [place] [address] Alcohol-induced chronic pancreatitis (CMS/HCC) (Primary Dx); Intractable nausea and vomiting Discharge Disposition: Home [...] slept in a correction (including now)? 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-AT RISK PARAPROFESSIONAL) to steady your nerves or to get rid of a hangover? 0 02/20/2023 CAGE Questionnaire Score 0 023 Utilities Answer Date Recorded In the past 12 months has th e [employer], gas, oil, or water company threatened to [...] Sign Reading Time Taken Comments Blood Pressure 101/72 02/24/2023 11:16 AM EST Pulse 90 02/24/2023 11:16 AM EST Temperature 36.7 ??C (98 ??F) 02/24/2023 11:14 AM EST Respiratory Rate 14 02/24/2023 11:14 AM EST Oxygen Saturation 89% 02/24/2023 11:16 AM EST Inhaled Oxygen Concentration - - Weight 100 kg (221 lb 5.5 oz) 02/24/2023 6:00 AM EST Height 165.1 cm (5' 5 ) 02/20/2023 11:27 AM EST Body Mass Index 36.83 02/20/2023 11:27 AM EST documented in this encounter Discharge Instructions * Attachments The following attachments cannot be sent through Care Everywhere. * Pancreatitis (Gibraltarian) documented in this encounter Medications at Time of Discharge pantoprazole (Protonix) 40 MG EC tablet Take 1 tablet (40 mg) by mouth 1 (one) time each day. Do not crush, chew, or split. oxyCODONE (Roxicodone) 10 MG immediate release tablet Take 2 tablets (20 mg) by mouth 3 (three) times a day if needed for severe pain for up to 3 days. 18 tablet 02/23/2023 pancrelipase, Vbr-[id number]-Uqdx, (Creon) [id number] units capsule Take 1 capsule by mouth [...] as of this encounter Miscellaneous Notes * Nursing Note - Karen Bishop - 02/24/2023 11:46 AM EST Rosibel Gayle was admitted to [facility] 02/20/23-02/24/23. Please excuse her during this time. [facility] * Progress Notes - Alexandria Jerez - 02/24/2023 11:37 AM EST Case Management Discharge Note Rosibel Gayle 37 y.o. female CSN: [id number] Admission: 02/20/2023 1:31 AM Primary Problem: Acute on chronic pancreatitis (CMS/HCC) Primary Shop Director: Primary Caregiver: Self Discharge Facility/Level of Care Needs: Discharge Facility/Level of Care Needs: 1-Home or Self Care DME/Equipment Needed after Discharge: Equipment Currently Used at Home: none Follow-up: [facility] [address] [facility] [address] Additional Comments: Per provider, patient is medically ready for discharge today. Patients family to provide discharge transport. No other known [facility] needs. Alexandria Jerez * Discharge Summary - Boy Magdaleno MD - 02/24/2023 11:27 AM EST Images from the original note were not included. Hospitalization Admit Date/Time: 02/20/2023 1:31 AM Admitting Attending: Javier Pittman Discharge Date: 02/24/2023 Discharge Attending Physician: Boy Magdaleno MD PCP name and Address: Rafiq Song DO [address] [facility] [address] Referring provider name and address: No referring provider defined for this encounter. Chief Concern, Brief History of Present Illness, and Hospital Course Rosibel Gayle is a 37 y.o. year-old female who has a past medical history of Anxiety, Arthritis,Depression, Fibromyalgia, Gastric erosions, GERD (gastroesophageal reflux disease), Hypertension, Nicotine dependence, Obesity, and alcoholic Pancreatitis who presents to [facility] ED due to left upper quadrant abdominal pain with nausea, vomiting, and diarrhea. Acute on chronic abdominal pain with intractable nausea, vomiting and diarrhea - etiology: Flare up of acute on chronic pancreatitis pain vs functional pain/cyclic vomiting. Pt declined CT. - 2 days of intense left upper quadrant abdominal pain with intractable nausea, vomiting and diarrhea. Multiple ED visits and hospital stays for the last 2 years for the same reason. - Lipase 62 (does not elevated always in chronic pancreatitis patients with flare) - Based on chart review, how recurrent and chronic pain could be due to recurrent and chronic pancreatitis. But for this year, multiple CTs did not show any signs of inflammation and there are many documentation about functional pain and maladaptive behavior. The location of the pain and tendernessis close to stomach and pancreas, therefore, I feel plexus block can be beneficial as this pain started as pancreatitis. Other considerations include cyclic vomiting syndrome and something similar, but Flare up often comes ways worsening pain, vomiting, and diarrhea. Plan - Outpatient follow up with pancreas clinic to evaluate for celiac plexus block by endoscopy (per GI recs). Patient also plans to keep her pain clinic appointment (Dr. Bauman). - encouraged cessation of cigarette smoking and marijuana smoking. Both can trigger the flare up. - Pt responded well to Oxy 20 mg q 4 prn (oxy 10 mg 4 times PRN at home doing nothing at this point, and 15 mg did not make a significant difference). Unfortunately, she has high opioid tolerance dueto chronic opioid use with 10 mg of oxy and not getting any pain relief from oxycodone 10 mg. She was made aware of this high tolerance making pain control even more difficult. She understands it andstates that is why she has been seeing Dr. Bauman (pain clinic) for pain pump or celiac plexus block. Sending home with 3 d supply of oxy 20 mg, then asked her to go back to home dose 10 mg. - continue home pancrelipase TID with meals Anxiety and Depression - continue home duloxetine and PRN ativan Chronic Medical Conditions: Fibromyalgia - continue home lyrica GERD- Continue home PPI Insomnia- Continue melatonin HS for sleep Nicotine Dependence - The patient uses cigarettes. Pt has been leaving the unit for smoking. I informed the patient that leaving the floor may result in delayed treatment and a longer hospital stay. Marijuana use - Encourage cessation Obesity - BMI: 38.94 Surgeries and Procedures Medication List .. acetaminophen [...] needed for nausea or vomiting. * oxyCODONE 10 MG immediate release tablet Commonly known as: Roxicodone Take 1 tablet (10 mg) by mouth every 6 (six) hours if needed for severe pain. * oxyCODONE 10 MG immediate release tablet Commonly known as: Roxicodone Take 2 tablets (20 mg) by mouth 3 (three) times a day if needed for severe pain for up to 3 days. pancrelipase (Qjl-Jtta-Prjn) [id number] units capsule Commonly known as: Creon Take [...] care provider to review them with you. Where to Get Your Medications These medications were sent to [facility] [place] [id number] capsule Kloxxado 8 mg/0.1 mL nasal spray nicotine 14 MG/24HR patch nicotine polacrilex 2 MG gum ondansetron ODT 4 MG disintegrating tablet oxyCODONE 10 MG immediate release tablet Discharge Diagnosis Medical Problems Active and Resolved Hospital Problems Hospital Anxiety (Chronic) Fibromyalgia (Chronic) GERD (gastroesophageal reflux disease) (Chronic) Obesity (Chronic) Chronic pain (Chronic) Opiate dependence (CMS/HCC) (Chronic) Hypertension (Chronic) Nicotine dependence (Chronic) Intractable nausea and vomiting Depression Marijuana use * (Principal) Acute on chronic pancreatitis (CMS/HCC) Hyperglycemia Post Discharge Instructions Outpatient Follow-Up Future Appointments Date Time Provider Department Center 03/13/2023 8:40 AM Francesca Salazar APRN [facility] Test Results Pending At Discharge Pertinent Physical Exam At Time of Discharge Physical Exam Constitutional: lying in bed, no distress HENT: atraumatic, hearing grossly normal Eyes: Bilateral eyes regular and reactive to light Respi: bilateral equal chest movement, no rhonchi or crackles Cardio: S1 S2, no murmurs GI: soft, non tender, BS+ MSK: no sarcopenia, movement grossly normal across all joints Skin: no ulcers, no redness Neuro: alert and oriented x3, no gross focal neuro deficits Discharge Disposition/Condition Disposition: Home Condition: Stable (s/sx potential problems absent or manageable) I spent >30 minutes of patient care and instruction time in preparation for this discharge. * Care Plan - Disha Almeida - 02/23/2023 10:03 PM EST Patient pain will be controlled during the shift * Hospital Course - Jessica Pérez MD - 02/23/2023 4:11 PM EST Rosibel Gayle is a 37 y.o. year-old female who has a past medical history of Anxiety, Arthritis,Depression, Fibromyalgia, Gastric erosions, GERD (gastroesophageal reflux disease), Hypertension, Nicotine dependence, Obesity, and alcoholic Pancreatitis who presents to [facility] ED due to left upper quadrant abdominal pain with nausea, vomiting, and diarrhea. Acute on chronic abdominal pain with intractable nausea, vomiting and diarrhea - etiology: Flare up of acute on chronic pancreatitis pain vs functional pain/cyclic vomiting. Pt declined CT. - 2 days of intense left upper quadrant abdominal pain with intractable nausea, vomiting and diarrhea. Multiple ED visits and hospital stays for the last 2 years for the same reason. - Lipase 62 (does not elevated always in chronic pancreatitis patients with flare) - Based on chart review, how recurrent and chronic pain could be due to recurrent and chronic pancreatitis. But for this year, multiple CTs did not show any signs of inflammation and there are many documentation about functional pain and maladaptive behavior. The location of the pain and tendernessis close to stomach and pancreas, therefore, I feel plexus block can be beneficial as this pain started as pancreatitis. Other considerations include cyclic vomiting syndrome and something similar, but Flare up often comes ways worsening pain, vomiting, and diarrhea. Plan - Outpatient follow up with [facility] to evaluate for celiac plexus block by endoscopy (per GI recs). Patient also plans to keep her pain clinic appointment (Dr. Bauman). - encouraged cessation of cigarette smoking and marijuana smoking. Both can trigger the flare up. - Pt responded well to Oxy 20 mg q 4 prn (oxy 10 mg 4 times PRN at home doing nothing at this point, and 15 mg did not make a significant difference). Unfortunately, she has high opioid tolerance dueto chronic opioid use with 10 mg of oxy and not getting any pain relief from oxycodone 10 mg. She was made aware of this high tolerance making pain control even more difficult. She understands it andstates that is why she has been seeing Dr. Bauman (pain clinic) for pain pump or celiac plexus block. Sending home with 3 d supply of oxy 20 mg, then asked her to go back to home dose 10 mg. - continue home pancrelipase TID with meals Anxiety and Depression - continue home duloxetine and PRN ativan Chronic Medical Conditions: Fibromyalgia - continue home lyrica GERD- Continue home PPI Insomnia- Continue melatonin HS for sleep Nicotine Dependence - The patient uses cigarettes. Pt has been leaving the unit for smoking. I informed the patient that leaving the floor may result in delayed treatment and a longer hospital stay. Marijuana use - Encourage cessation Obesity - BMI: 38.94 * Progress Notes - Jessica Pérez MD - 02/23/2023 2:18 PM EST Subjective No acute event last night. Pt was feeling much better with oxycodone 20 mg today though she said she was hurting a lot at the time of my visit. Pt feels she can go home tomorrow if she does okay today. Pt was okay to dc IV dilaudid prn today but persistently requested one last dose of 1 mg instead of 0.5. Review of Systems No fever, chills Positive for N/V Objective Physical Exam Last Recorded Vitals Blood pressure (!) 132/94, pulse 85, temperature 36.9 ??C (98.4 ??F), temperature source Oral, resp. rate 16, height 1.651 m (5' 5 ), weight 103 kg (226 lb 8 oz), SpO2 95 %, not currently . Constitutional: General: She is not in acute distress. Appearance: She is obese. She is not ill-appearing or toxic-appearing. HENT: Head: Normocephalic and atraumatic. Nose: Nose normal. No congestion or rhinorrhea. Mouth: Mucous membranes are moist. Eyes: Extraocular Movements: Extraocular movements intact. Conjunctiva/sclera: Conjunctivae normal. Cardiovascular: Rate and Rhythm: Normal rate and regular rhythm. Heart sounds: No murmur heard. Pulmonary: Effort: Pulmonary effort is normal. No respiratory distress. Breath sounds: Normal breath sounds. No stridor. Abdominal: General: Bowel sounds are normal. There is no distension. Palpations: Abdomen is soft. Tenderness: There is abdominal tenderness (epigastric to LUQ). Musculoskeletal: General: No swelling Neurological: General: No focal deficit present. Mental Status: She is alert and oriented to person, place, and time. Psychiatric: Attention and Perception: Attention and perception normal. Mood and Affect: Mood is anxious. Labs in last 18 hours CBC WBC ?? Hb ?? Plt ?? Hct ?? ANC ?? INR ??, PTT ??, Anti-Xa ?? BMP Na ?? Cl ?? BUN ?? Glu ?? K ?? Co2 ?? Cr ?? Ca ?? iCa ?? Mg ??, Phos ?? Lactate ?? LFT AST ?? AlkPhos ?? T Prot ?? ALK ?? Bili ?? Alb ?? D.Bili ?? Assessment/Plan Principal Problem: Acute on chronic pancreatitis (CMS/HCC) Active Problems: Anxiety Fibromyalgia GERD (gastroesophageal reflux disease) Obesity Chronic pain Opiate dependence (CMS/HCC) Intractable nausea and vomiting Hypertension Nicotine dependence Depression Marijuana use Hyperglycemia Rosibel Gayle is a 37 y.o. year-old female who has a past medical history of Anxiety, Arthritis,Depression, Fibromyalgia, Gastric erosions, GERD (gastroesophageal reflux disease), Hypertension, Nicotine dependence, Obesity, and alcoholic Pancreatitis who presents to [facility] ED due to left upper quadrant abdominal pain with nausea, vomiting, and diarrhea. Acute on chronic abdominal pain with intractable nausea, vomiting and diarrhea - etiology: Flare up of acute on chronic pancreatitis pain vs functional pain/cyclic vomiting. Pt declined CT. - 2 days of intense left upper quadrant abdominal pain with intractable nausea, vomiting and diarrhea. Multiple ED visits and hospital stays for the last 2 years for the same reason. - Lipase 62 (does not elevated always in chronic pancreatitis patients with flare) - Based on chart review, how recurrent and chronic pain could be due to recurrent and chronic pancreatitis. But for this year, multiple CTs did not show any signs of inflammation and there are many documentation about functional pain and maladaptive behavior. The location of the pain and tendernessis close to stomach and pancreas, therefore, I feel plexus block can be beneficial. Other considerations include cyclic vomiting syndrome and something similar, but Flare up often comes ways worsening pain, vomiting, and diarrhea. Plan - d/w RN. DC IV dilaudid PRN after one last dose. - GI recommended outpatient follow-up with pancreas clinic to evaluate for celiac plexus block by endoscopy. Patient is very interesting in completing this evaluation. Patient also plans to keep her pain clinic appointment (Dr. Bauman). - encouraged cessation of cigarette smoking and marijuana smoking. Both can trigger the flare up. - Pain control: Pt responded well to Oxy 20 mg q 4 prn (oxy 10 mg 4 times PRN at home, and 15 mg did not make a significant difference). Unfortunately, she has high opioid tolerance due to chronic opioid use with 10 mg of oxy and not getting any pain relief from oxycodone 10 mg. She was made aware of this high tolerance making pain control even more difficult. She understands it and states that is why she has been seeing Dr. Bauman (pain clinic) for pain pump or celiac plexus block. Plan to discharge tomorrow with 3 d supply of oxy 20 mg, then asked her to go back to home dose 10 mg. - Zofran PRN and Reglan PRN - advanced to regular diet - resumed home pancrelipase TID with meals - Miralax PRN for constipation Anxiety and Depression - continue home duloxetine and PRN ativan Mild Hyperglycemia - Likely reactive Chronic Medical Conditions: Fibromyalgia - continue home lyrica GERD- Continue home PPI Insomnia- Continue melatonin HS for sleep Nicotine Dependence - The patient uses cigarettes. Pt has been leaving the unit for smoking. I informed the patient that leaving the floor may result in delayed treatment and a longer hospital stay. Marijuana use - Encourage cessation Obesity - BMI: 38.94 DVTPPx: lovenox subcutaneous Full code Dispo Plan for dc home tomorrow * Progress Notes - Jessica Pérez MD - 02/22/2023 2:58 PM EST Subjective patient reported that she had a rough night and requested additional doses of IV pain medication. However, reports that she did not get any additional dose. I discussed the pain management with her reiterating that we would avoid additional IV Dilaudid as much as possible and he did suggested IV Toradol. Also discussed 15 mg of Oxy being ineffective and this is likely because of the high opioid tolerance since she is on 10 mg 4 times a day as needed athome for a long time. Patient was agreeable to trying 20 mg Q 4 p.r.n. today. If 20 mg which is an increased dose of the same oxycodone is not effective, I suggested that trying somewhat approaches not relying on oxycodone or IV Dilaudid. Review of Systems No fever, chills Positive for N/V Objective Physical Exam Last Recorded Vitals Blood pressure 128/88, pulse 72, temperature 36.6 ??C (97.8 ??F), resp. rate 16, height 1.651 m (5'5 ), weight 103 kg (228 lb), SpO2 99 %, not currently . Constitutional: General: She is not in acute distress. Appearance: She is obese. She is not ill-appearing or toxic-appearing. HENT: Head: Normocephalic and atraumatic. Nose: Nose normal. No congestion or rhinorrhea. Mouth: Mucous membranes are moist. Eyes: Extraocular Movements: Extraocular movements intact. Conjunctiva/sclera: Conjunctivae normal. Cardiovascular: Rate and Rhythm: Normal rate and regular rhythm. Heart sounds: No murmur heard. Pulmonary: Effort: Pulmonary effort is normal. No respiratory distress. Breath sounds: Normal breath sounds. No stridor. Abdominal: General: Bowel sounds are normal. There is no distension. Palpations: Abdomen is soft. Tenderness: There is abdominal tenderness (epigastric to LUQ). Musculoskeletal: General: No swelling Neurological: General: No focal deficit present. Mental Status: She is alert and oriented to person, place, and time. Psychiatric: Attention and Perception: Attention and perception normal. Mood and Affect: Mood is anxious. Labs in last 18 hours CBC WBC ?? Hb ?? Plt ?? Hct ?? ANC ?? INR ??, PTT ??, Anti-Xa ?? BMP Na ?? Cl ?? BUN ?? Glu ?? K ?? Co2 ?? Cr ?? Ca ?? iCa ?? Mg ??, Phos ?? Lactate ?? LFT AST ?? AlkPhos ?? T Prot ?? ALK ?? Bili ?? Alb ?? D.Bili ?? Assessment/Plan Principal Problem: Acute on chronic pancreatitis (CMS/HCC) Active Problems: Anxiety Fibromyalgia GERD (gastroesophageal reflux disease) Obesity Chronic pain Opiate dependence (CMS/HCC) Intractable nausea and vomiting Hypertension Nicotine dependence Depression Marijuana use Hyperglycemia Rosibel Gayle is a 37 y.o. year-old female who has a past medical history of Anxiety, Arthritis,Depression, Fibromyalgia, Gastric erosions, GERD (gastroesophageal reflux disease), Hypertension, Nicotine dependence, Obesity, and alcoholic Pancreatitis who presents to [facility] ED due to left upper quadrant abdominal pain with nausea, vomiting, and diarrhea. Acute on chronic abdominal pain with intractable nausea, vomiting and diarrhea - etiology: Flare up of acute on chronic pancreatitis pain vs functional pain/cyclic vomiting. Pt declined CT. - 2 days of intense left upper quadrant abdominal pain with intractable nausea, vomiting and diarrhea. Multiple ED visits and hospital stays for the last 2 years for the same reason. - Lipase 62 (does not elevated always in chronic pancreatitis patients with flare) - Based on chart review, how recurrent and chronic pain could be due to recurrent and chronic pancreatitis. But for this year, multiple CTs did not show any signs of inflammation and there are many documentation about functional pain and maladaptive behavior. The location of the pain and tendernessis close to stomach and pancreas, therefore, I feel plexus block can be beneficial. Other considerations include cyclic vomiting syndrome and something similar, but Flare up often comes ways worsening pain, vomiting, and diarrhea. Plan - d/w RN and shared the discussion below. - discussed with GI. Recommended outpatient follow-up with [facility] to evaluate for celiac plexus block by endoscopy. Patient is very interesting in completing this evaluation. Patient alsoplans to keep her pain clinic appointment. - discussed cessation of cigarette smoking and marijuana smoking. Patient is motivated to stay awayfrom smoking anything. - Pain control. Increased to Oxy 20 mg q 4 prn (oxy 10 mg 4 times PRN at home) and keep iv dilaudid0.5 mg q 6 prn. Add cyproheptidine tid. At IV Toradol p.r.n.. - Zofran PRN and Reglan PRN - advanced to FLD, IV fluid - resumed home pancrelipase TID with meals - Miralax PRN for constipation - monitoring carefully for neurological and respiratory compromise while on high dose by mouth and IV opioid medications on top of benzodiazepine use. Anxiety and Depression - continue home duloxetine and PRN ativan Mild Hyperglycemia - Likely reactive Chronic Medical Conditions: Fibromyalgia - continue home lyrica GERD- Continue home PPI Insomnia- Continue melatonin HS for sleep Nicotine Dependence - The patient uses cigarettes. Pt has been leaving the unit for smoking. I informed the patient that leaving the floor may result in delayed treatment and a longer hospital stay. Marijuana use - Encourage cessation Obesity - BMI: 38.94 DVTPPx: lovenox subcutaneous Full code Dispo TBD * Procedures - Reyna Glass RN - 02/22/2023 4:16 AM ESTAssociated Order(s): Insert peripheral IV Insert peripheral IV Performed by: Reyna Glass RN Authorized by: Jessica Pérez MD Hand hygiene: Hand hygiene performed prior to insertion Inserted using aseptic techniques: Yes Preparation: Skin prepped with chg Orientation: Right Location: Arm Catheter placed: Peripheral IV Catheter size: 20g/1.88in Line Technique: Ultrasound Guidance Number of attempts: 1 IV flushes: Without difficulty and positive blood return noted and IV luer locked Patient tolerance: Patient tolerated the procedure well and there were no complications IV site covered with: Transparent semipermeable dressing Education provided to: Patient * Nursing Note - Nya Alcazar RN - 02/21/2023 6:18 PM EST Pt continues to request pain medication immediately prior to leaving unit. Educated on medication safety. * Consults - Paty Staley MD - 02/21/2023 3:59 PM ESTAssociated Order(s): Inpatient consult to gastroenterology Inpatient consult to gastroenterology Consult performed by: Paty Staley MD Consult ordered by: Jessica Pérez MD Reason For Consult Acute on chronic pancreatitis Requesting Service: Hospital medicine Requested Date/Time: 02/21/2023 History Of Present Illness Rosibel Gayle is a 37 y.o. female patient with PMH of bipolar disorder, fibromyalgia, recurrent acute on chronic pancreatitis, current marijuana use, gastric and duodenal ulcers who presents with recurrent stabbing epigastric pain associated with nausea, vomiting and loose bowel movements that started few days ago. GI service was consulted for possible celiac plexus block. The patient reports recurrent episode of similar symptoms that last 5-7 days, will improve for 2-3 weeks and then comes back again. The patient had presented to the emergency room almost every month for the last year. These episodes started more than 3 years ago The patient smokes weed 3 to 4 times a month, she has been smoking weed for over 10 years now The patient has chronic pancreatitis and she is on Creon Patient had prior GI workup EGD 04/18/2021: Moderate, patchy edematous and erythematous mucosa with erosion in the body of the stomach, incisura and antrum , no H pylori was detected 09/2020 she had an EGD revealing gastric and duodenal ulcers. 11/13- normal EGD, 11/2020- EUS to evaluate her recurrent pain with some stranding in the pancreatic parenchyma but no other signs of chronic pancreatitis. ERCP with no stones or narrowing, good flow. Prior sphincterotomy seen. Past Medical History She has a past [...] She reports current drug use. Drug: Marijuana. Allergies Droperidol and Tramadol Medications Current Facility-Administered Medications Medication Dose Route Frequency Provider Last Rate Last Admin acetaminophen (Tylenol) tablet 1,000 mg 1,000 mg Oral q6h PRN Radha Lewis MD 1,000 mg at 02/20/23 1251 cholecalciferol (Vitamin D-3) tablet 2,000 Units 2,000 Units Oral Daily Radha Lewis MD 2,000 Units at 02/21/23 0958 cyanocobalamin (Vitamin B-12) tablet 1,000 mcg 1,000 mcg Oral Daily Radha Lewis MD 1,000 mcg at 02/21/23 0958 cyproheptadine (Periactin) tablet 4 mg 4 mg Oral TID Jessica Pérez MD DULoxetine (Cymbalta) DR capsule 60 mg 60 mg Oral Daily Radha Lewis MD 60 mg at 02/21/23 0958 enoxaparin (Lovenox) syringe 40 mg 40 mg Subcutaneous Daily Radha Lewis MD 40 mg at 02/21/23 0958 HYDROmorphone (Dilaudid) injection 0.5 mg 0.5 mg Intravenous q6h PRN Radha Lewis MD 0.5 mg at 02/21/23 1115 lactated Ringer's infusion 1,000 mL 1,000 mL Intravenous Once Veda Levy PA Stopped at 02/20/23 0443 LORazepam (Ativan) tablet 2 mg 2 mg Oral q12h PRN Radha Lewis MD 2 mg at 02/21/23 0513 melatonin tablet 9 mg 9 mg Oral Nightly PRN Leny Tee APRN 9 mg at 02/20/23 2039 metoclopramide (Reglan) injection 10 mg 10 mg Intravenous q6h PRN Jessica Pérez MD 10 mg at 02/21/23 1246 nicotine (Nicoderm CQ) 21 MG/24HR patch 1 patch 1 patch Transdermal Daily Radha Lewis MD 1 patch at 02/20/23 1708 ondansetron (Zofran) injection 4 mg 4 mg Intravenous q6h PRN Leny Tee APRN 4 mg at 013 oxyCODONE (Roxicodone) immediate release tablet 15 mg 15 mg Oral q4h PRN Jessica Pérez MD 15 mg at 02/21/23 1359 pancrelipase (Creon) 6000 unit capsule 1 capsule Oral TID with meals Jessica Pérez MD pantoprazole (Protonix) injection 40 mg 40 mg Intravenous Daily Leny Tee APRN 40 mg at 02/21/23 0958 polyethylene glycol (Miralax) packet 17 g 17 g Oral Daily PRN Leny Tee APRN pregabalin (Lyrica) capsule 300 mg 300 mg Oral BID Radha Lewis MD 300 mg at 02/21/23 0958 sodium chloride 0.9 % flush 10 mL 10 mL Intravenous q8h PRN Leny Tee APRN And sodium chloride 0.9 % flush 10 mL 10 mL Intravenous PRN Leny Tee APRN Review of Systems Review of Systems Review of system is negative except for HPI Physical Exam Physical Exam Constitutional: Appearance: Normal appearance. Well-developed. Not in acute distress HENT: Head: Normocephalic and atraumatic. Mouth: Mucous membranes are moist. Pharynx: Oropharynx is clear. Eyes: General: No scleral icterus. Conjunctiva/sclera: Conjunctivae normal. Cardiovascular: Rate and Rhythm: Normal rate and regular rhythm. Pulmonary: Effort: Pulmonary effort is normal. Abdominal: General: There is no distension. Palpations: Abdomen is soft. There is no hepatomegaly, splenomegaly or mass. Tenderness: There is epigastric abdominal tenderness. There is no guarding. Hernia: No hernia is present. No ascites Musculoskeletal: Right lower leg: No edema. Left lower leg: No edema. Skin: General: Skin is warm. Coloration: Skin is not jaundiced or pale. No spider telangiectasias or palmar erythema Neurological: General: No focal deficit present. Mental Status: Alert and oriented to person, place, and time. Comments: No asterixis Psychiatric: Mood and Affect: Mood normal. Behavior: Behavior normal. Judgment: Judgment normal. Last Recorded Vitals Blood pressure 136/88, pulse 88, temperature 36.7 ??C (98.1 ??F), temperature source Oral, resp. rate 14, height 1.651 m (5' 5 ), weight 106 kg (233 lb 14.5 oz), SpO2 98 %, not currently . Relevant Results Labs in last 18 hours CBC WBC 4.96 Hb 10.8 (L) Plt 265 Hct 33.9 (L) ANC ?? INR ??, PTT ??, Anti-Xa ?? BMP Na 140 Cl 107 BUN 7 Glu 95 K 4.3 Co2 23 Cr 0.51 (L) Ca 8.8 (L) iCa ?? Mg 2.2, Phos 5.9 (H) Lactate ?? LFT AST 21 AlkPhos 93 T Prot 5.8 (L) ALK 19 Bili 0.2 Alb ?? D.Bili ?? Assessment/Plan Principal Problem: Acute on chronic pancreatitis (CMS/HCC) Active Problems: Anxiety Fibromyalgia GERD (gastroesophageal reflux disease) Obesity Chronic pain Opiate dependence (CMS/HCC) Intractable nausea and vomiting Hypertension Nicotine dependence Depression Marijuana use Hyperglycemia 37 y.o. female patient with PMH of bipolar disorder, fibromyalgia, recurrent acute on chronic pancreatitis, current marijuana use, gastric and duodenal ulcers who presents with recurrent stabbing epigastric pain associated with nausea, vomiting and loose bowel movements that started few days ago. GI service was consulted for possible celiac plexus block Epigastric abdominal pain Prior history of gastric and duodenal ulcer Prior history of erosive gastritis Current use of marijuana Recurrent Acute on chronic pancreatitis - continue PPI twice daily - continue pancrelipase - IV hydration and by mouth feeding once tolerated - pain management as per primary team - Li and Reglinus p.r.n. for nausea and vomiting - discussed with the patient that her symptoms could be very well related to the marijuana use, we counseled the patient on quitting marijuana use, please consult addiction medicine if necessary - Please refer the patient to our outpatient pancrease clinic for further management and to evaluate for celiac plexus block Discussed with Attending Dr. Monte Thank you for allowing us to participate in this patient's care. Please do not hesitate to call or page with questions or concerns. Paty Staley MD Department of Gastroenterology and Nutrition Liver fellow Cosigned by Raiza Monte MD at 02/23/2023 12:43 AM EST Associated attestation - Raiza Monte MD - 02/23/2023 12:43 AM EST I saw and evaluated the patient with the resident/fellow. I discussed the case with the resident/fellow and agree with the findings and plan as documented. In addition to note, patient reports ongoing TOB use and intermittent binge drinking with history of DUI times two. She is interested in stopping TOB and ETOH use and would be interested in referral to Dr. Rider's substance dependency clinic. * Progress Notes - Jessica Pérez MD - 02/21/2023 3:27 PM EST Subjective Overnight, pt continued to be unhappy with pain control. This morning, I took over care and saw her at bedside. I happened to buy her and her friend soda in cafeteria yesterday so recognized her. She wants to drink fluids and try CLD today. She states she plans to go back to pain clinic to discuss pain pump. When asked about plexus block,she said that was the initial plan but then got scared due to risks. Discussed pain mgmt here - sheis okay to try 15 mg oxy and cap IV dilaudid 0.5 mg q6 prn (She really wanted to be on q3-4 prn butI do not believe even q3-4 h will keep her pain under control due to its constant nature). Review of Systems No fever, chills Positive for N/V Objective Physical Exam Last Recorded Vitals Blood pressure 136/88, pulse 88, temperature 36.7 ??C (98.1 ??F), temperature source Oral, resp. rate 14, height 1.651 m (5' 5 ), weight 106 kg (233 lb 14.5 oz), SpO2 98 %, not currently . Constitutional: General: She is not in acute distress. Appearance: She is obese. She is not ill-appearing or toxic-appearing. HENT: Head: Normocephalic and atraumatic. Nose: Nose normal. No congestion or rhinorrhea. Mouth: Mucous membranes are moist. Eyes: Extraocular Movements: Extraocular movements intact. Conjunctiva/sclera: Conjunctivae normal. Cardiovascular: Rate and Rhythm: Normal rate and regular rhythm. Heart sounds: No murmur heard. Pulmonary: Effort: Pulmonary effort is normal. No respiratory distress. Breath sounds: Normal breath sounds. No stridor. Abdominal: General: Bowel sounds are normal. There is no distension. Palpations: Abdomen is soft. Tenderness: There is abdominal tenderness (epigastric to LUQ). Musculoskeletal: General: No swelling Neurological: General: No focal deficit present. Mental Status: She is alert and oriented to person, place, and time. Psychiatric: Attention and Perception: Attention and perception normal. Mood and Affect: Mood is anxious. Labs in last 18 hours CBC WBC 4.96 Hb 10.8 (L) Plt 265 Hct 33.9 (L) ANC ?? INR ??, PTT ??, Anti-Xa ?? BMP Na 140 Cl 107 BUN 7 Glu 95 K 4.3 Co2 23 Cr 0.51 (L) Ca 8.8 (L) iCa ?? Mg 2.2, Phos 5.9 (H) Lactate ?? LFT AST 21 AlkPhos 93 T Prot 5.8 (L) ALK 19 Bili 0.2 Alb ?? D.Bili ?? I personally reviewed the lab data. No leukocytosis. Assessment/Plan Principal Problem: Acute on chronic pancreatitis (CMS/HCC) Active Problems: Anxiety Fibromyalgia GERD (gastroesophageal reflux disease) Obesity Chronic pain Opiate dependence (CMS/HCC) Intractable nausea and vomiting Hypertension Nicotine dependence Depression Marijuana use Hyperglycemia Rosibel Gayle is a 37 y.o. year-old female who has a past medical history of Anxiety, Arthritis,Depression, Fibromyalgia, Gastric erosions, GERD (gastroesophageal reflux disease), Hypertension, Nicotine dependence, Obesity, and alcoholic Pancreatitis who presents to [facility] ED due to left upper quadrant abdominal pain with nausea, vomiting, and diarrhea. Acute on chronic abdominal pain with intractable nausea, vomiting and diarrhea - etiology: Flare up of acute on chronic pancreatitis pain vs functional pain/cyclic vomiting. Pt declined CT. - 2 days of intense left upper quadrant abdominal pain with intractable nausea, vomiting and diarrhea. Multiple ED visits and hospital stays for the last 2 years for the same reason. - Lipase 62 (does not elevated always in chronic pancreatitis patients with flare) Plan - discussed with GI. Patient is interested in discussing endoscopic guided plexus block. She has been coming back to ED so many times, therefore, outpatient based intervention will be challenging. RAMOSoctavialesvia discuss with patient and within that team to see if plexus block can be beneficial in her situation. Based on chart review, how recurrent and chronic pain could be due to recurrent and chronic pancreatitis. But for this year, multiple CTs did not show any signs of inflammation and there are many documentation about functional pain and maladaptive behavior. The location of the pain and tenderness is close to stomach and pancreas, therefore, I feel plexus block can be beneficial. Other considerations include cyclic vomiting syndrome and something similar, but Flare up often comes ways worsening pain, vomiting, and diarrhea. - Pain control. Oxy 15 mg q 4 prn (oxy 10 mg 4 times PRN at home) and keep iv dilaudid 0.5 mg q 6 prn. Add cyproheptidine tid. - Zofran PRN and Reglan PRN - CLD - resumed home pancrelipase TID with meals - Miralax PRN for constipation Anxiety and Depression - continue home duloxetine and PRN ativan Mild Hyperglycemia - Likely reactive Chronic Medical Conditions: Fibromyalgia - continue home lyrica GERD- Continue home PPI Insomnia- Continue melatonin HS for sleep Nicotine Dependence - The patient uses cigarettes. Pt has been leaving the unit for smoking. I informed the patient that leaving the floor may result in delayed treatment and a longer hospital stay. Marijuana use - Encourage cessation Obesity - BMI: 38.94 DVTPPx: lovenox subcutaneous Full code Dispo TBD * Nursing Note - Nya Alcazar RN - 02/21/2023 11:34 AM EST Pt given IV pain medication per request and per EMAR. Pt then stated she was going outside to smoke. Pt reminded and educated about conversation she had with yesterday regarding not going out to smoke for 1hr after receiving IV pain medication. Will continue to monitor pt while on the unit. * Care Plan - Nya Alcazar RN - 02/21/2023 9:58 AM EST Problem: Adult Inpatient Plan of Care Goal: Plan of Care Review Outcome: Ongoing, Progressing Flowsheets (Taken 02/21/2023 0958) Progress: improving Plan of Care Reviewed With: patient Goal: Patient-Specific Goal (Individualized) Outcome: Ongoing, Progressing Goal: Absence of Hospital-Acquired Illness or Injury Outcome: Ongoing, Progressing Goal: Optimal Comfort and Wellbeing Outcome: Ongoing, Progressing Goal: Readiness for Transition of Care Outcome: Ongoing, Progressing * Significant Event - Radha Lewis MD - 02/20/2023 5:10 PM EST Pt leaving the floor several times to go out to smoke. On Home Oxy, lorazepam, lyrica started, with IV dilaudid prn. Later called out for IV pain medicine, crying saying her pain is not controlled. UDS negative for any opiates and benzos.( At home on narcotics and Benzos and received IV dilaudid since admission ) Repeat UDS ordered. Suspicious visitor in the room, requesting to help her with IV pain medicine. Pt refused to have CT abd - saying she had several of those. Labs . Vitals reviewed. Advised pt not to leave the floor if she is on IV dilaudid, ordered Nicotine patch. Pt also c/o diarrhea/ N/V. ( None documented per staff ) Requested to show it to the staff , so can be managed appropriately. * Nursing Note - Rin Bunn RN - 02/20/2023 4:30 PM EST MD Lewis notified patient's UDS was not positive for any medications patient has been given duringthis admission including opiates and benzos. Patient is also tearful about her pain regimen and is requesting IV meds for pain control. Patient has been ambulating off of the unit and appears subjectively comfortable. MD Lewis came to bedside and it was explained to patient that she will not be given IV medications and be allowed to leave the unit. Patient was also made aware of her UDS results and she agreed to give an additional sample. This RN waited outside the door while patient voided, water was heard running, urine sample was room temperature. * Progress Notes - Abigail Thompson - 02/20/2023 4:13 PM EST Case Management Adult Initial Progress Note Rosibel Gayle 37 y.o. female CSN: [id number] Admission: 02/20/2023 1:31 AM Primary Problem: Acute on chronic pancreatitis (CMS/HCC) Storage Wharfage Clerk reviewed chart and spoke with patient to complete this Initial Case Management Assessment. PCP: Rafiq Song DO Emergency Contact: Extended Emergency Contact Information Primary Emergency Contact: Asiya Flores Address: [address] [place] [address] of [employer] Relation: Mother Preferred language: [place] Chief Airport Guide needed? No Insurance: Primary Visit Coverage Payer Plan Sponsor Code Group Number Group Name ANTHEM MEDICAID ANTHEM MEDICAID [id number] Primary Visit Coverage Subscriber Subscriber ID Subscriber Name Subscriber SSN Subscriber Address [id number] ROSIBEL GAYLE [id number] [place] [id number] Patient information: Primary Caregiver: Self Support System: Immediate family Daily Living Activities: Functional Status: Independent Living Arrangements: Children, Family Type of Residence: Private residence [facility] [place] [id number] Smoker in the Home?: Yes Current DME: Equipment Currently Used at Home: none Income Information: Income Source: Unemployed Income/Expense Information: Expenses exceed income Current Resources Utilized: Food [place] Circumstances-Z Codes: Patient Referred to: Anticipated Discharge Date: TBD Patient's Discharge Goal: Return home. Interested in finding a pain management doctor. Assistance Available at Discharge: Discharge Transport: Family Follow Up Transport: Family Home Health / Home Infusion / Outpatient Dialysis Services: No Living Will/Advance Directive/Power of Tilesetter /Guardian: No Additional Comments: Plan of care and discharge planning needs discussed in teams this am. Patient with history of pancreatitis who reports ongoing unrelieved upper abdominal pain. States she can only tolerate ice chips PO. Confirmed address, phone number, PCP and insurance. Family will transport home and to the doctor. Denies equipment needs. Will follow and assess for ongoing discharge needs. Abigail Thompson RN * H&P - Leny Tee APRN - 02/20/2023 6:34 AM ESTAssociated Order(s): Consult to [facility] Images from the original note were not included. Consult to [facility] Consult performed by: Leny Tee APRN Consult ordered by: Veda Levy PA Reason for consult: admission for [facility] Medicine History and Physical Chief Complaint: Left upper quadrant abdominal pain with nausea, vomiting, and diarrhea History of Present Illness: Rosibel Gayle is a 37 y.o. year-old female who has a past medical history of Anxiety, Arthritis,Depression, Fibromyalgia, Gastric erosions, GERD (gastroesophageal reflux disease), Hypertension, Nicotine dependence, Obesity, and alcoholic Pancreatitis who presents to [facility] ED due to left upper quadrant abdominal pain with nausea, vomiting, and diarrhea. Patient reports left upper quadrant stabbing abdominal pain that started 2 days ago. She reports her baseline pain is throbbing and 7/10 in intensity, but intermittently she has bouts of 10/10 stabbing left upper quadrant abdominal pain that feels like I'm being murdered over and over again . She reports that pain is worse with PO intake or when lying supine and better in the position on her left side and with pain medications. Patient reports that, since the pain started, she has not been able to eat or drink anything with intractable nausea, vomiting and diarrhea. She was also seen in the ED for these symptoms 02/18 and offered admission, but she had family in town and wanted to try and manage it at home. Patient 's symptoms continued to worsen at home prompting her to return to the ED last night. Lab work shows mild hyperglycemia and mildly elevated lipase. Patient declined CTAP due to many recent scans and not wanting to expose herself to any more radiation. Patient was given 1L IVF, IV dilaudid x 2, Zofran and Reglan with mild relief of symptoms. Patient to be admitted to Hospital Medicine for further work up and care. Review of Systems: Review of Systems Constitutional: Positive for appetite change and fatigue. Negative for activity change, chills, diaphoresis, fever and unexpected weight [...] allergies, food allergies and immunocompromised state. Neurological: Positive for weakness (generalized). Negative for dizziness, tremors, seizures, syncope, light-headedness, numbness and headaches. Hematological: Negative for adenopathy. Does not bruise/bleed easily. Psychiatric/Behavioral: Negative for agitation, confusion, hallucinations and suicidal ideas. The patient is nervous/anxious. Past Medical History: Past Medical History: Diagnosis Date Anxiety Arthritis Depression Fibromyalgia Gastric erosions 04/19/2021 GERD (gastroesophageal reflux disease) Hypertension Intentional overdose ([facility]) 12/20/2021 Nicotine dependence Obesity Pancreatitis Surgical History: Past Surgical History: Procedure Laterality Date CHOLECYSTECTOMY ERCP ESOPHAGOGASTRODUODENOSCOPY HAND SURGERY Right Family History: Family History Problem Relation Name Age of Onset Hypertension Mother No Known Problems Father Social History: Living: [place] [facility] with significant other and 3 children Marital Status: not Alcohol Use: reports sobriety x a few months with prior heavy consumption x 7 yrs Recreational Drug Use: reports current drug use. [...] the following new or worsening symptoms? Abdominal pain;Vomiting Have you traveled internationally or domestically in the last month? No Travel History Travel since 01/21/23 No documented travel since 01/21/23 Allergies: Droperidol and Tramadol Medications: Current Facility-Administered Medications: famotidine PF (Pepcid) injection 20 mg, 20 mg, Intravenous, q12h, Leny Tee APRN HYDROmorphone (Dilaudid) injection 0.5 mg, 0.5 mg, Intravenous, q3h PRN OR HYDROmorphone (Dilaudid) injection 1 mg, 1 mg, Intravenous, q3h PRN, Leny Tee APRN lactated Ringer's infusion 1,000 mL, 1,000 mL, Intravenous, Once, eVda Levy PA, Stopped at1 0443 lactated Ringer's infusion, 100 mL/hr, Intravenous, Continuous, Leny Tee APRN melatonin tablet 9 mg, 9 mg, Oral, Nightly PRN, Leny Tee APRN melatonin tablet 9 mg, 9 mg, Oral, Nightly PRN, Leny Tee APRN ondansetron (Zofran) injection 4 mg, 4 mg, Intravenous, q6h PRN, Leny Tee APRN pantoprazole (Protonix) injection 40 mg, 40 mg, Intravenous, Daily, Leny Tee APRN polyethylene glycol (Miralax) packet 17 g, 17 g, Oral, Daily PRN, Leny Tee APRN [COMPLETED] Insert peripheral IV, , , Once AND [COMPLETED] Saline lock IV, , , Once AND sodium chloride 0.9 % flush 10 mL, 10 mL, Intravenous, q8h PRN AND sodium chloride 0.9 % flush 10 mL, 10 mL, Intravenous, PRN, Leny Tee, CORRECTIVE THERAPY AIDE Current Outpatient Medications: acetaminophen (Tylenol) 500 MG tablet, Take 2 tablets (1,000 mg) by mouth every 6 (six) hours if needed for pain., Disp: , Rfl: cholecalciferol (Vitamin D-3) 50 MCG (2000 UT) capsule, Take 1 capsule (2,000 Units) by mouth 1 (one) time each day., Disp: , Rfl: cyanocobalamin 1000 MCG tablet, Take 1 tablet (1,000 mcg) by mouth 1 (one) time each day., Disp: , Rfl: DULoxetine (Cymbalta) [address] capsule, Take 1 capsule (60 mg) by mouth 1 (one) time each day. Do not crush or chew., Disp: , Rfl: famotidine (Pepcid) 20 MG tablet, Take 1 tablet (20 mg) by mouth 2 (two) times a day if needed for heartburn., Disp: , Rfl: LORazepam (Ativan) 2 MG tablet, Take 1 tablet (2 mg) by mouth 2 (two) times a day., Disp: , Rfl: MELATONIN PO, Take 10 mg by mouth at night if needed (sleep)., Disp: , Rfl: pancrelipase, Xav-Iwky-Zyba, (Creon) 6000-27622 units capsule, Take 1 capsule by mouth 3 (three) times a day with meals., Disp: 90 capsule, Rfl: 1 pantoprazole (Protonix) 40 MG EC tablet, Take 1 tablet (40 mg) by mouth 2 (two) times a day. Do notcrush, chew, or split., Disp: , Rfl: pregabalin (Lyrica) 300 MG capsule, Take 1 capsule (300 mg) by mouth 2 (two) times a day., Disp: , Rfl: sucralfate (Carafate) 1 GM/10ML suspension, Take 10 mL (1 g) by mouth 4 (four) times a day., Disp: , Rfl: naloxone (Narcan) 4 mg/0.1 mL nasal spray, 1. Give 1 spray in nostril for no/slow breathing or cannot wake after opioid use 2. Call 911 3. Repeat in other nostril if symptoms continue 1 spray, Disp: 1 each, Rfl: 0 nicotine (Nicoderm CQ) 21 MG/24HR patch, Place 1 patch on the skin 1 (one) time each day over 24 hours. (Patient not taking: Reported on 01/06/2023), Disp: 30 patch, Rfl: 0 ondansetron ODT (Zofran-ODT) 4 MG disintegrating tablet, Take 1 tablet (4 mg) by mouth every 8 (eight) hours if needed for nausea or vomiting., Disp: , Rfl: prochlorperazine (Compazine) 10 MG tablet, Take 1 tablet (10 mg) by mouth every 6 (six) hours if needed for nausea or vomiting. (Patient not taking: Reported on 02/20/2023), Disp: , Rfl: promethazine (Phenergan) 25 MG tablet, Take 1 tablet (25 mg) by mouth every 6 (six) hours if neededfor nausea or vomiting., Disp: 30 tablet, Rfl: 0 Vital Signs: Visit Vitals BP (!) 145/91 Pulse 87 Temp 36.6 ??C (97.8 ??F) Resp 16 Ht 1.651 m (5' 5 ) Wt 106 kg (234 lb) SpO2 92% BMI 38.94 kg/m?? OB Status Having periods Smoking Status Every Day BSA 2.2 m?? Physical Exam: General: well developed, well-nourished female who presents in mild distress due to anxiety and pain Physical Exam Vitals reviewed. Constitutional: General: She is not in acute distress. Appearance: She is obese. She is not ill-appearing [...] No carotid bruit. Cardiovascular: Rate and Rhythm: Normal rate and regular rhythm. Heart sounds: No murmur heard. No friction [...] Coordination normal. Psychiatric: Attention and Perception: Attention and perception normal. Mood and Affect: Mood is anxious. Affect is tearful. Speech: Speech normal. Behavior: Behavior normal. Behavior is cooperative. Thought Content: Thought content normal. Cognition and Memory: Cognition and memory normal. Judgment: Judgment normal. Labs (in last 24 hours): CBC: Lab Results Component Value Date WBC 7.81 02/20/2023 RBC 4.24 02/20/2023 HGB 11.2 02/20/2023 HCT 36.0 02/20/2023 PLT 278 02/20/2023 MCV 85 02/20/2023 MCH 26.4 02/20/2023 MCHC 31.1 02/20/2023 RDW 17.0 (H) 02/20/2023 NRBC 0.0 02/20/2023 Differential: Lab Results Component Value Date WBC 7.81 02/20/2023 NEUTOPHILPCT 64.0 02/20/2023 LYMPHOPCT 27.0 02/20/2023 MONOPCT 6.0 02/20/2023 EOSPCT 1.0 02/20/2023 Coagulation: No results found for: INR , PT , PTT , CLFGN Renal: Lab Results Component Value Date NA 135 (L) 02/20/2023 K 3.8 02/20/2023 CL 102 02/20/2023 CO2 21 (L) 02/20/2023 BUN 19 02/20/2023 CREATININE 0.50 (L) 02/20/2023 GLUCOSE 113 (H) 02/20/2023 CALCIUM 8.8 (L) 02/20/2023 Liver: Lab Results Component Value Date AST 18 02/20/2023 ALT 24 02/20/2023 BILITOT <0.2 (L) 02/20/2023 Glucose: No results found for: PGLU Lab Results Component Value Date HGBA1C 5.2 11/21/2022 Microbiology: Results No results found for the last 48 hours. Imaging (in last 24 hours): No imaging this admission to date Assessment and plan: Rosibel Gayle is a 37 y.o. year-old female who has a past medical history of Anxiety, Arthritis,Depression, Fibromyalgia, Gastric erosions, GERD (gastroesophageal reflux disease), Hypertension, Nicotine dependence, Obesity, and alcoholic Pancreatitis who presents to [facility] ED due to left upper quadrant abdominal pain with nausea, vomiting, and diarrhea. Acute on chronic alcoholic pancreatitis with intractable nausea, vomiting and diarrhea - 2 days of intense left upper quadrant abdominal pain with intractable nausea, vomiting and diarrhea - Lipase 62 (does not elevated always in chronic pancreatitis patients with flare) - Zofran PRN for nausea - IVF for rehydration - NPO except sips and chips - Strict Is & Os with daily weights - Restart home vitamin D, B12, pancrelipase and sucralfate when tolerating PO 2. Acute on chronic pain secondary to #1 complicated by fibromyalgia - Hold home lyrica and oxycodone while NPO, restart as tolerated - 0.5mg-1mg IVP dilaudid q3h PRN while not tolerating PO intake - Miralax PRN for constipation - Monitor on continuous pulse oxymetry due to increased narcotics 3. Mild Hyperglycemia - Likely reactive - Glucose: 113 - Continue to monitor with AM labs Chronic Medical Conditions: #) GERD- Continue home PPI and H2 janki (administer as IV for now and switch to PO as tolerated) #) Anxiety and Depression - Hold home duloxetine - Give low dose IV ativan to prevent withdrawal/seizures due to holding home PO ativan due to nausea and vomiting; switch back to PO as tolerated #) Insomnia- Continue melatonin HS for sleep #) Nicotine Dependence - The patient uses cigarettes - I have offered NRT and smoking cessation counseling; patient declined. I informed the patient that leaving the floor may result in delayed treatment and a longer hospital stay. #) Marijuana use - Encourage cessation #) Obesity - BMI: 38.94 - Complicates all aspects of care Fluids: LR @ 100 ml/hr Electrolytes: Continue to monitor and replace as appropriate Diet: NPO diet NPO except: Ice chips, Sips with meds, Sips of clear liquids DVT prophylaxis: SCDs + Lovenox prophylaxis Code status: Full Code Leny Tee APRN * ED Provider Notes - Veda Levy PA - 02/20/2023 1:28 AM EST Images from the original note were not included. - HPI Chief Complaint Patient presents with Abdominal Pain The patient is a 37-year-old white female with a history of GERD, alcohol abuse, chronic pancreatitis, fibromyalgia, anxiety and depression that presents with recurrent symptoms of nausea, vomiting and left upper quadrant abdominal pain she describes as throbbing in nature with intermittent episodes of stabbing pain. She was seen in the emergency department for the same symptoms last night, treated with IV analgesics and antiemetics. Her symptoms improved and she was able to tolerate by mouth prior to discharge. She was offered admission but declined due to improvement in symptoms. Today she is continue to experience nausea, vomiting and unable to tolerate oral intake. She also complains of ongoing intermittent diarrhea denies hematemesis or coffee-ground emesis, no black or bloody stools. She denies fever, chills, recent alcohol use or change in medications and has no further complaints at this time. She did attempt to take antiemetics and oxycodone at home earlier today but was unable to tolerate oral medications as well. 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 by: Patient and medical records No data recorded Patient History Past Medical History: Diagnosis Date Anxiety Arthritis Depression Fibromyalgia Gastric erosions 04/19/2021 GERD (gastroesophageal reflux disease) Hypertension Intentional overdose ([facility]) 12/20/2021 Nicotine dependence Obesity Pancreatitis [...] change. Negative for chills and fever. HENT: Negative. Respiratory: Negative. Gastrointestinal: Positive for abdominal pain, diarrhea, nausea and vomiting. Genitourinary: Negative for decreased urine volume, difficulty urinating and dysuria. All other systems reviewed and are negative. Physical Exam ED Triage Vitals Temp Heart Rate Resp BP 02/20/23 0136 02/20/2313502/20/23 0143 02/20/23135 36.6 ??C (97.8 ??F) 106 16 130/79 SpO2 Temp src Heart Rate Source Patient Position 02/20/23135 -- -- -- 99 % BP Location FiO2 (%) -- -- Physical Exam Vitals and nursing note reviewed. Constitutional: General: She is not in acute distress. Appearance: She is well-developed. She is obese. She is not ill-appearing or diaphoretic. HENT: Head: Normocephalic and atraumatic. Eyes: General: No scleral icterus. Cardiovascular: Rate and Rhythm: Regular rhythm. Tachycardia present. Heart sounds: Normal heart sounds. Pulmonary: Effort: Pulmonary effort is normal. Breath sounds: Normal breath sounds. Abdominal: General: Bowel sounds are normal. Palpations: Abdomen is soft. Tenderness: There is abdominal tenderness in the left upper quadrant. There is no right CVA tenderness, left CVA tenderness, guarding or rebound. Skin: Coloration: Skin is not jaundiced. Neurological: Mental Status: She is alert and oriented to person, place, and time. Psychiatric: Mood and Affect: Affect is tearful. ED Course & MDM Lab Results Labs Reviewed CBC WITH AUTO DIFFERENTIAL - Abnormal Result Value WBC Count 7.81 RBC Count 4.24 HGB 11.2 HCT 36.0 Platelet Count 278 MCV 85 MCH 26.4 MCHC 31.1 RDW 17.0 (*) MPV 9.5 nRBC 0.0 Differential Type Automated Neutrophils % 64.0 Lymphocytes % 27.0 Monocytes % 6.0 Eosinophils % 1.0 Basophils % 1.0 Immature Granulocytes % 1.0 Neutrophils Absolute 5.10 Lymphocytes Absolute 2.10 Monocytes Absolute 0.44 Eosinophils Absolute 0.08 Basophils Absolute 0.05 Immature Granulocytes Absolute 0.04 Narrative: Therapeutic decision making should be based on absolute values, rather than percentages. COMPREHENSIVE METABOLIC PANEL, PLASMA - Abnormal Glucose, Plasma 113 (*) BUN, Plasma 19 Creatinine, Plasma 0.50 (*) BUN/Creatinine Ratio 38 Sodium, Plasma 135 (*) Potassium, Plasma 3.8 Chloride, Plasma 102 CO2, Plasma 21 (*) Anion Gap 12 Total Calcium, Plasma 8.8 (*) Total Protein 6.5 Albumin, Plasma 3.9 AST, Plasma 18 ALT, Plasma 24 Alkaline Phosphatase, Plasma 101 Total Bilirubin, Plasma <0.2 (*) eGFRcr 124.8 URINALYSIS WITH REFLEX MICROSCOPIC - Abnormal Color, Urine Yellow Clarity, Urine Cloudy Spec [place], Urine >=1.030 pH, Urine 6.0 Protein, Urine Negative Glucose, Urine Negative Ketones, Urine Trace (*) Blood, Urine Negative Bilirubin, Urine Negative Urobilinogen, Urine 0.2 Leukocytes, Urine Negative Nitrite, Urine Negative LIPASE, PLASMA - Normal Lipase, Plasma 62 LACTATE, VENOUS - Normal Lactate, Venous, Whole Blood 1.6 TEST QUALITATIVE PLASMA - Normal Test Negative Narrative: Reference Range: Males and non- females: Negative. Imaging Results No orders to display Clinical Impressions as of 02/20/23 0517 Alcohol-induced chronic pancreatitis (CMS/HCC) Intractable nausea and vomiting - Medical Decision Making Rosibel Gayle is a 37 yrs old female presents today for Patient presents with: Abdominal Pain . Based on her history and physical exam, my differential diagnosis included acute on chronic pancreatitis, gastritis, gastroenteritis, PUD, AAA, malingering. Ruling out the most morbid conditions drove my clinical assessment. In order to fully explore differential these tests and treatments were ordered. Orders Placed This Encounter CBC w/diff CMP Lipase Lactic acid, venous Urinalysis with reflex microscopic hCG qualitative Consult to [facility] ED to floor bed request Medications lactated Ringer's infusion 1,000 mL (0 mL Intravenous Stopped 02/20/23 044) HYDROmorphone (Dilaudid) injection 0.5 mg (0.5 mg Intravenous Given 02/20/23 0223) metoclopramide (Reglan) injection 10 mg (10 mg Intravenous Given 02/20/23 0218) HYDROmorphone (Dilaudid) injection 1 mg (1 mg Intravenous Given 02/20/23 0307) ondansetron (Zofran) injection 4 mg (4 mg Intravenous Given 02/20/23 0443) Old records for this patient were reviewed and found to be pertinent. Records review indicates thatthe patient was seen in the ED on 02/18/23 as well with similar complaints but declined admission with plans to attempt outpatient treatment. It should be noted that her chronic conditions includes chronic pancreatitis, history of alcohol abuse, obesity, fibromyalgia, anxiety/depression and GERD, which currently is not at goal therapy. This complicates her clinical picture because it may be exacerbating symptoms and increases the risk for morbidity. I considered the utility of obtaining CT Scan, but decided to forgo this after shared decision making with the patient/family because the risks outweigh the benefits given multiple CT imaging studiesin the past. Lab results were reviewed independently and can be interpreted as non actionable Complicating her clinical picture is the social fact that she does not feel comfortable with discharge which puts her at higher risk for treatment failure and subsequent morbidity. We discussed admitting the patient for pain control, IV hydration and antiemetics as she is still reporting significant LUQ abdominal pain despite 2 rounds of IV hydromorphone, IV fluid bolus, IV Reglan and Zofran and has failed oral intake challenge. The patient is now agreeable for admission. IM Hospitalist was contacted and notified of need for admission and agree to accept the patient. I had an interactive discussion with the hospital's admitting team who will admit the patient Ultimately, this patient was admitted (Admission) The primary encounter diagnosis was Alcohol-induced chronic pancreatitis (CMS/HCC). A diagnosis of Intractable nausea and vomiting was also pertinent to this visit.. Patient believed to require admission for the listed diagnoses. The Internal Medicine service was consulted for admissionand was agreeable to admit to Acute Floor (Med/Surg). ED Prescriptions None Disposition Admit Requested Location: [facility] [[id number]] Sign Off Checklist Clinical Impression: Complete ED Disposition: Complete - Veda Levy PA 02/20/23 0517 Cosigned by George Martinez MD at 02/20/2023 5:25 AM EST Associated attestation - George Martinez MD - 02/20/2023 5:25 AM EST The patient was seen only by Advanced Practice Provider (AJAY), and care was reviewed with me. * ED Triage Notes - Hunter Good RN - 02/20/2023 1:28 AM EST Patient presents to ED c/o abdominal pain and vomiting. Patient was seen here yesterday for same. Hx of chronic pancreatitis. documented in this encounter Plan of Treatment Scheduled Referrals Name Type Priority Associated Diagnoses Order Schedule Discharge Ambulatory referral to Gastroenterology Outpatient Referral Routine Alcohol-induced chronic pancreatitis (CMS/HCC) Expected: 02/22/2023 (Approximate), Expires: 08/22/2024 documented as of this encounter Procedures Procedure Name Priority Date/Time Associated Diagnosis Comments INSERT PERIPHERAL IV Routine 02/22/2023 4:16 AM EST CBC W/O DIFFERENTIAL Routine 02/21/2023 5:07 AM EST PHOSPHORUS, PLASMA Routine 02/21/2023 5: 07 AM EST MAGNESIUM, PLASMA Routine 02/21/2023 5:0 7 AM EST COMPREHENSIVE METABOLIC PANEL, PLASMA Routine 02/21/2023 5:07 AM EST OXYCODONE CONFIRMATION,URINE STAT 02/20/2023 5:24 PM EST OPIATES, LCMSMS, URINE STAT 5:24 PM EST DRUG ABUSE SCREEN, URINE STAT 02/20/2023 5:24 PM EST [facility] URINE CONFIRM STAT 02/20/2023 5:2 4 PM EST DRUG ABUSE SCREEN, URINE STAT 02/20/2023 1:03 PM EST [facility] URINE CONFIRM STAT 02/20/2023 1:0 3 PM EST URINALYSIS WITH REFLEX MICROSCOPIC STAT 02/20/2023 2:20 AM EST LACTATE, VENOUS STAT 02/20/2023 2:19 AM EST CBC WITH AUTO DIFFERENTIAL STAT 02/20/2023 2:19 AM EST TEST QUALITATIVE PLASMA STAT 02/20/2023 2:19 AM EST LIPASE, PLASMA STAT 02/20/2023 2:19 AM EST COMPREHENSIVE METABOLIC PANEL, PLASMA STAT 02/20/2023 2:19 AM EST documented in this encounter Results * PERIPHERAL IV (SMARTFORM LINK) (02/22/2023 4:16 AM EST) Narrative Reyna Glass RN - 02/22/2023 4:16 AM EST Reyna Glass RN ? 02/22/2023 ??4:17 AM Insert peripheral IV Performed by: Reyna Glass RN Authorized by: Jessica Pérez MD ?? Hand hygiene: Hand hygiene performed prior to insertion ?? Inserted using aseptic techniques: Yes ?? Preparation: ??Skin prepped with chg Orientation: ??Right Location: ??Arm Catheter placed: ??Peripheral IV Catheter size: ??20g/1.88in Line Technique: ??Ultrasound Guidance Number of attempts: ??1 IV flushes: ??Without difficulty and positive blood return noted and IV luer locked Patient tolerance: ??Patient tolerated the procedure well and there were no complications IV site covered with: ??Transparent semipermeable dressing Education provided to: ??Patient us Jessica Pérez MD IV THERAPY ORDERABLES Final Res ult * (ABNORMAL) Phosphorus (02/21/2023 5:07 AM EST) Phosphorus, Plasma 5.9(H) 2.5 - 4.5 mg/dL 02/21/2023 5:40 AM EST [facility] Blood Venous blood specimen / Unknown Venipuncture / Unknown 02/21/2023 5:07 AM EST 02/21/2023 5:17 AM EST Leny Tee CORRECTIVE THERAPY AIDE LAB BLOOD ORDERABLES Final R esult [facility] [address] [place] [address] * Magnesium (02/21/2023 5:07 AM EST) Magnesium, Plasma 2.2 1.9 - 2.4 mg/dL 02/21/2023 5:40 AM EST [facility] Blood Venous blood specimen / Unknown Venipuncture / Unknown 02/21/2023 5:07 AM EST 02/21/2023 5:17 AM EST Leny Tee CORRECTIVE THERAPY AIDE LAB BLOOD ORDERABLES Final R esult [facility] [address] [place] [address] * (ABNORMAL) Comprehensive metabolic panel (02/21/2023 5:07 AM EST) Glucose, Plasma 95 74 - 99 mg/dL 02/21/2023 5:40 AM EST [facility] BUN, Plasma 7 7 - 21 mg/dL 02/21/2023 5:40 AM EST [facility] Creatinine, Plasma 0.51(L) 0.60 - 1.10 mg/dL 02/21/2023 5:40 AM [facility] BUN/Creatinine Ratio 14 02/21/2023 5:40 AM [facility] Sodium, Plasma 140 136 - 145 mmol/L 02/21/2023 5:40 AM [facility] Potassium, Plasma 4.3 3.7 - 4.8 mmol/L 02/21/2023 5:40 AM [facility] Comment:Hemolyzed, result ma y be falsely increased. Chloride, Plasma 107 97 - 107 mmol/L 02/21/2023 5:40 AM [facility] CO2, Plasma 23 22 - 29 mmol/L 02/21/2023 5:40 AM [facility] Anion Gap 10 6 - 16 mmol/L 02/21/2023 5:40 AM [facility] Total Calcium, Plasma 8.8(L) 8.9 - 10.2 mg/dL 02/21/2023 5:40 AM [facility] Total Protein 5.8(L) 6.3 - 7.9 g/dL 02/21/2023 5:40 AM [facility] Albumin, Plasma 3.5 3.5 - 5.2 g/dL 02/21/2023 5:40 AM [facility] AST, Plasma 21 10 - 35 U/L 02/21/2023 5:40 AM [facility] Comment:Hemolyzed, result ma y be falsely increased. ALT, Plasma 19 10 - 35 U/L 02/21/2023 5:40 AM [facility] Alkaline Phosphatase, Plasma 93 35 - 104 U/L 02/21/2023 5:40 AM [facility] Total Bilirubin, Plasma 0.2 0.2 - 1.1 mg/dL 02/21/2023 5:40 AM [facility] eGFRcr 124.2 mL/min/1.7 3m*2 02/21/2023 5:40 AM [facility] Comment:Reported eGFRcr in m L/min/1.73m2 is based the CKD-EPI 2020 equation that does not use a race coefficient. Blood Venous blood specimen / Unknown Venipuncture / Unknown 02/21/2023 5:07 AM EST 02/21/2023 5:17 AM EST us Leny Tee CORRECTIVE THERAPY AIDE LAB BLOOD ORDERABLES Final R esult [facility] [address] [place] [address] * (ABNORMAL) CBC (02/21/2023 5:07 AM EST) WBC Count 4.96 3.70 - 10.30 10*3/uL LAB HEMATOLOGY METHOD 02/21/2023 5:21 AM EST [facility] RBC Count 4.05 3.90 - 5.20 10*6/uL LAB HEMATOLOGY METHOD 02/21/2023 5:21 AM EST [facility] HGB 10.8(L) 11.2 - 15.7 g/dL LAB HEMATOLOGY METHOD 02/21/2023 5:21 AM EST [facility] HCT 33.9(L) 34.0 - 45.0 % LAB HEMATOLOGY METHOD 02/21/2023 5:21 AM EST [facility] Platelet Count 265 155 - 369 10*3/uL LAB HEMATOLOGY METHOD 02/21/2023 5:21 AM EST [facility] MCV 84 79 - 98 fL LAB HEMATOLOGY METHOD 02/21/2023 5:21 AM EST [facility] MCH 26.7 26.0 - 32.0 pg LAB HEMATOLOGY METHOD 02/21/2023 5:21 AM EST [facility] MCHC 31.9 30.7 - 35.5 g/dL LAB HEMATOLOGY METHOD 02/21/2023 5:21 AM EST [facility] RDW 16.6(H) 11.5 - 14.5 % LAB HEMATOLOGY METHOD 02/21/2023 5:21 AM EST [facility] MPV 9.6 8.8 - 12.5 fL LAB HEMATOLOGY METHOD 02/21/2023 5:21 AM EST [facility] nRBC 0.0 <=0.0 per 100 WBCs LAB HEMATOLOGY METHOD 02/21/2023 5:21 AM EST [facility] Blood Venous blood specimen / Unknown Venipuncture / Unknown 02/21/2023 5:07 AM EST 02/21/2023 5:17 AM EST us Leny Tee APRN LAB BLOOD ORDERABLES Final R esult Performing Organization Address City/[facility]/ZIP Co de Phone Number [facility] [address] [place] [address] * (ABNORMAL) OXYCODONE CONFIRMATION,URINE (02/20/2023 5:24 PM EST) Oxycodone >1,000(H) <50 ng/mL 02/22/2023 8:59 AM EST [facility] Oxymorphone 147(H) <50 ng/mL 02/22/2023 8:59 AM EST [facility] Oxymorphone Glucuronide >1,000(H) <50 ng/mL 02/22/2023 8:59 AM EST [facility] Urine Urine specimen obtained by clean catch procedure / Unknown Non-blood Collection / Unknown 02/20/2023 5:24 PM EST 02/20/2023 5:30 PM EST Narrative [facility] - 02/22/2023 8:59 AM EST Test performed by LC-MS/MS at the [facility]. This test was developed and its performance characteristics determined by [facility]. It has not been cleared or approved by the FDA. The laboratory is regulated under CLIA as qualified to perform high-complexity testing. This test is used for clinical purposes. us Radha Lewis MD LAB URINE ORDERABLES Final Res ult Performing Organization Address City/[facility]/ZIP Co de Phone Number [facility] [address] [place] [address] * (ABNORMAL) Opiates Confirm Urine (02/20/2023 5:24 PM EST) Codeine <50 <50 ng/mL 02/22/2023 8:59 AM EST [facility] Codeine Glucuronide <50 <50 ng/mL 02/22/2023 8:59 AM EST [facility] Desmethyl Tramadol <50 <50 ng/mL 02/22/2023 8:59 AM EST [facility] EDDP - Methadone Metabolite <50 <50 ng/mL 02/22/2023 8:59 AM EST [facility] Hydrocodone <50 <50 ng/mL 02/22/2023 8:59 AM EST [facility] Hydromorphone >1,000(H) <50 ng/mL 02/22/2023 8:59 AM EST [facility] Hydromorphone Glucuronide 868(H) <50 ng/mL 02/22/2023 8:59 AM EST [facility] Comment:Metabolite of Hydrom orphone Meperidine <50 <50 ng/mL 02/22/2023 8:59 AM EST [facility] Methadone <50 <50 ng/mL 02/22/2023 8:59 AM EST [facility] 6 Monoacetyl morphine <10 <10 ng/mL 02/22/2023 8:59 AM EST [facility] Morphine <50 <50 ng/mL 02/22/2023 8:59 AM EST [facility] Morphine Glucuronide 156(H) <50 ng/mL 02/22/2023 8:59 AM EST [facility] Comment:Metabolite of Morphi ne Naloxone <50 <50 ng/mL 02/22/2023 8:59 AM EST [facility] Naloxone Glucuronide <50 <50 ng/mL 02/22/2023 8:59 AM EST [facility] Comment:Metabolite of Naloxo ne Normeperidine <50 <50 ng/mL 02/22/2023 8:59 AM EST [facility] Tramadol <50 <50 ng/mL 02/22/2023 8:59 AM EST [facility] Urine Urine specimen obtained by clean catch procedure / Unknown Non-blood Collection / Unknown 02/20/2023 5:24 PM EST 02/20/2023 5:30 PM EST [facility] - 02/22/2023 8:59 AM EST Drug analysis is confirmed by LC-MS/MS (LC Tandem Mass Spectrometry) on Urine specimens. ?? This test was developed and its performance characteristics determined by [facility]. It has not been cleared or approved by the FDA. The laboratory is regulated under CLIA as qualified to perform high-complexity testing. This test is used for clinical purposes. Testing is performed at the [facility], [facility]. us Radha Lewis MD LAB URINE ORDERABLES Final Res ult [facility] [address] [place] [address] * (ABNORMAL) THC Urine Confirm LCMSMS (02/20/2023 5:24 PM EST) 9 Carboxy THC 10(H) <10 ng/mL 02/22/2023 8:59 AM EST [facility] 9 Carboxy THC Glucuronide 376(H) <25 ng/mL 02/22/2023 8:59 AM EST [facility] Urine Urine specimen obtained by clean catch procedure / Unknown Non-blood Collection / Unknown 02/20/2023 5:24 PM EST 02/20/2023 5:30 PM EST Narrative [facility] - 02/22/2023 8:59 AM EST Drug analysis is confirmed by LC-MS/MS (LC Tandem Mass Spectrometry) on Urine specimens. ?? This test was developed and its performance characteristics determined by [facility]. It has not been cleared or approved by the FDA. The laboratory is regulated under CLIA as qualified to perform high-complexity testing. This test is used for clinical purposes. Testing is performed at the [facility]. us Radha Lewis MD LAB URINE ORDERABLES Final Res ult [facility] [address] [place] [address] * Drug Abuse Screen Urine (02/20/2023 5:24 PM EST) Amphetamine Screen Urine Negative Cutoff: 500 ng/mL 02/20/2023 6:00 PM EST [facility] Benzodiazepines Screen Urine Negative Cutoff: 200 ng/mL 02/20/2023 6:00 PM EST [facility] Cannabinoid Screen Urine Presumptive positive. Confirmation by LC-MS/MS to follow. Cutoff: 50 ng/mL 02/20/2023 6:00 PM EST [facility] Cocaine Screen Urine Negative Cutoff: 300 ng/mL 02/20/2023 6:00 PM EST [facility] Barbiturate Screen Urine Negative Cutoff: 200 ng/mL 02/20/2023 6:00 PM EST [facility] Opiate Screen Urine Presumptive positive. Confirmation by LC-MS/MS to follow. Cutoff: 300 ng/mL 02/20/2023 6:00 PM EST [facility] Methadone Screen Urine Negative Cutoff: 300 ng/mL 02/20/2023 6:00 PM EST [facility] Buprenorphine Screen Urine Negative Cutoff: 10 ng/mL 02/20/2023 6:00 PM EST [facility] Fentanyl Screen Urine Negative Cutoff: 1 ng/mL 02/20/2023 6:00 PM EST [facility] Oxycodone Screen Urine Presumptive positive. Confirmation by LC-MS/MS to follow. Cutoff: 100 ng/mL 02/20/2023 6:00 PM EST [facility] Urine Urine specimen obtained by clean catch procedure / Unknown Non-blood Collection / Unknown 02/20/2023 5:24 PM EST 02/20/2023 5:30 PM EST Radha Lewis MD LAB URINE ORDERABLES Final Res ult Performing Organization Address [facility] Co de Phone Number [facility] [address] [place] [address] * (ABNORMAL) THC Urine Confirm LCMSMS (02/20/2023 1:03 PM EST) 9 Carboxy THC 21(H) <10 ng/mL 02/22/2023 11:18 AM EST [facility] 9 Carboxy THC Glucuronide 425(H) <25 ng/mL 02/22/2023 11:18 AM EST [facility] Urine Urine specimen obtained by clean catch procedure / Unknown Non-blood Collection / Unknown 02/20/2023 1:03 PM EST 02/20/2023 1:09 PM EST Narrative [facility] - 02/22/2023 11:18 AM EST Drug analysis is confirmed by LC-MS/MS (LC Tandem Mass Spectrometry) on Urine specimens. ?? This test was developed and its performance characteristics determined by [facility]. It has not been cleared or approved by the FDA. The laboratory is regulated under CLIA as qualified to perform high-complexity testing. This test is used for clinical purposes. Testing is performed at the [facility]. Radha Lewis MD LAB URINE ORDERABLES Final Res ult [facility] [address] [place] [address] * Drug Abuse Screen Urine (02/20/2023 1:03 PM EST) Amphetamine Screen Urine Negative Cutoff: 500 ng/mL 02/20/2023 1:58 PM EST [facility] Benzodiazepines Screen Urine Negative Cutoff: 200 ng/mL 02/20/2023 1:58 PM EST [facility] Cannabinoid Screen Urine Presumptive positive. Confirmation by LC-MS/MS to follow. Cutoff: 50 ng/mL 02/20/2023 1:58 PM EST [facility] Cocaine Screen Urine Negative Cutoff: 300 ng/mL 02/20/2023 1:58 PM EST [facility] Barbiturate Screen Urine Negative Cutoff: 200 ng/mL 02/20/2023 1:58 PM EST [facility] Opiate Screen Urine Negative Cutoff: 300 ng/mL 02/20/2023 1:58 PM EST [facility] Methadone Screen Urine Negative Cutoff: 300 ng/mL 02/20/2023 1:58 PM EST [facility] Buprenorphine Screen Urine Negative Cutoff: 10 ng/mL 02/20/2023 1:58 PM EST [facility] Fentanyl Screen Urine Negative Cutoff: 1 ng/mL 02/20/2023 1:58 PM EST [facility] Oxycodone Screen Urine Negative Cutoff: 100 ng/mL 02/20/2023 1:58 PM EST [facility] Urine Urine specimen obtained by clean catch procedure / Unknown Non-blood Collection / Unknown 02/20/2023 1:03 PM EST 02/20/2023 1:09 PM EST us Radha Lewis MD LAB URINE ORDERABLES Final Res ult [facility] [address] [place] [address] * (ABNORMAL) Urinalysis with reflex microscopic (02/20/2023 2:20 AM EST) Color, Urine Yellow LAB URINALYSIS - AUTOMATED METHOD 02/20/2023 2:58 AM EST [facility] Clarity, Urine Cloudy LAB URINALYSIS - AUTOMATED METHOD 02/20/2023 2:58 AM EST [facility] Spec [place], Urine >=1.030 <=1.005 to >=1.030 LAB URINALYSIS - AUTOMATED METHOD 02/20/2023 2:58 AM EST [facility] pH, Urine 6.0 4.5 to 8 LAB URINALYSIS - AUTOMATED METHOD 02/20/2023 2:58 AM EST [facility] Protein, Urine Negative Negative mg/dL LAB URINALYSIS - AUTOMATED METHOD 02/20/2023 2:58 AM EST [facility] Glucose, Urine Negative Negative mg/dL LAB URINALYSIS - AUTOMATED METHOD 02/20/2023 2:58 AM EST [facility] Ketones, Urine Trace(A) Negative mg/dL LAB URINALYSIS - AUTOMATED METHOD 02/20/2023 2:58 AM EST [facility] Blood, Urine Negative Negative LAB URINALYSIS - AUTOMATED METHOD 02/20/2023 2:58 AM EST [facility] Bilirubin, Urine Negative Negative LAB URINALYSIS - AUTOMATED METHOD 02/20/2023 2:58 AM EST [facility] Urobilinogen, Urine 0.2 0.2 to 1.0 mg/dL LAB URINALYSIS - AUTOMATED METHOD 02/20/2023 2:58 AM [facility] Leukocytes, Urine Negative Negative LAB URINALYSIS - AUTOMATED METHOD 02/20/2023 2:58 AM [facility] Nitrite, Urine Negative Negative LAB URINALYSIS - AUTOMATED METHOD 02/20/2023 2:58 AM EST [facility] Urine Urine specimen obtained by clean catch procedure / Unknown Non-blood Collection / Unknown 02/20/2023 2:20 AM EST 02/20/2023 2:50 AM EST us Veda NAJERA LAB URINE ORDERABLES Final R esult [facility] [address] [place] [address] * hCG qualitative (02/20/2023 2:19 AM EST) Test Negative Negative 02/20/2023 3:49 AM EST [facility] Blood Venous blood specimen / Unknown Venipuncture / Unknown 02/20/2023 2:19 AM EST 02/20/2023 2:50 AM EST Narrative [facility] - 02/20/2023 3:49 AM EST Reference Range: Males and non- females: Negative. us Veda NAJERA LAB BLOOD ORDERABLES Final R esult Performing Organization Address City/[facility]/ZIP Co de Phone Number [facility] [address] [place] [address] * Lactic acid, venous (02/20/2023 2:19 AM EST) Lactate, Venous, Whole Blood 1.6 0.5 - 2.2 mmol/L LAB HEMATOLOGY METHOD 02/20/2023 2:52 AM EST [facility] Blood Venous blood specimen / Unknown Venipuncture / Unknown 02/20/2023 2:19 AM EST 02/20/2023 2:50 AM EST us Veda NAJERA LAB BLOOD ORDERABLES Final R esult Performing Organization Address City/[facility] Co de Phone Number [facility] [address] [place] [address] * Lipase (02/20/2023 2:19 AM EST) Lipase, Plasma 62 19 - 63 U/L 02/20/2023 3:49 AM EST [facility] Blood Venous blood specimen / Unknown Venipuncture / Unknown 02/20/2023 2:19 AM EST 02/20/2023 2:50 AM EST us Veda NAJERA LAB BLOOD ORDERABLES Final R esult Performing Organization Address City/[facility] Co de Phone Number [facility] [address] [place] [address] * (ABNORMAL) CMP (02/20/2023 2:19 AM EST) Glucose, Plasma 113(H) 74 - 99 mg/dL 02/20/2023 3:49 AM EST [facility] BUN, Plasma 19 7 - 21 mg/dL 02/20/2023 3:49 AM EST [facility] Creatinine, Plasma 0.50(L) 0.60 - 1.10 mg/dL 02/20/2023 3:49 AM EST [facility] BUN/Creatinine Ratio 38 02/20/2023 3:49 AM [facility] Sodium, Plasma 135(L) 136 - 145 mmol/L 02/20/2023 3:49 AM [facility] Potassium, Plasma 3.8 3.7 - 4.8 mmol/L 02/20/2023 3:49 AM [facility] Chloride, Plasma 102 97 - 107 mmol/L 02/20/2023 3:49 AM [facility] CO2, Plasma 21(L) 22 - 29 mmol/L 02/20/2023 3:49 AM [facility] Anion Gap 12 6 - 16 mmol/L 02/20/2023 3:49 AM [facility] Total Calcium, Plasma 8.8(L) 8.9 - 10.2 mg/dL 02/20/2023 3:49 AM [facility] Total Protein 6.5 6.3 - 7.9 g/dL 02/20/2023 3:49 AM [facility] Albumin, Plasma 3.9 3.5 - 5.2 g/dL 02/20/2023 3:49 AM [facility] AST, Plasma 18 10 - 35 U/L 02/20/2023 3:49 AM [facility] Comment:Hemolyzed, result ma y be falsely increased. ALT, Plasma 24 10 - 35 U/L 02/20/2023 3:49 AM [facility] Alkaline Phosphatase, Plasma 101 35 - 104 U/L 02/20/2023 3:49 AM [facility] Total Bilirubin, Plasma <0.2(L) 0.2 - 1.1 mg/dL 02/20/2023 3:49 AM [facility] eGFRcr 124.8 mL/min/1.7 3m*2 02/20/2023 3:49 AM [facility] Comment:Reported eGFRcr in m L/min/1.73m2 is based the CKD-EPI 2020 equation that does not use a race coefficient. Blood Venous blood specimen / Unknown Venipuncture / Unknown 02/20/2023 2:19 AM EST 02/20/2023 2:50 AM EST Veda NAJERA LAB BLOOD ORDERABLES Final R esult [facility] [address] [place] [address] * (ABNORMAL) CBC w/diff (02/20/2023 2:19 AM EST) WBC Count 7.81 3.70 - 10.30 10*3/uL LAB HEMATOLOGY METHOD 02/20/2023 3:01 AM EST [facility] RBC Count 4.24 3.90 - 5.20 10*6/uL LAB HEMATOLOGY METHOD 02/20/2023 3:01 AM EST [facility] HGB 11.2 11.2 - 15.7 g/dL LAB HEMATOLOGY METHOD 02/20/2023 3:01 AM EST [facility] HCT 36.0 34.0 - 45.0 % LAB HEMATOLOGY METHOD 02/20/2023 3:01 AM EST [facility] Platelet Count 278 155 - 369 10*3/uL LAB HEMATOLOGY METHOD 02/20/2023 3:01 AM EST [facility] MCV 85 79 - 98 fL LAB HEMATOLOGY METHOD 02/20/2023 3:01 AM EST [facility] Comment:Results inconsistent with previous lab findings. MCH 26.4 26.0 - 32.0 pg LAB HEMATOLOGY METHOD 02/20/2023 3:01 AM EST [facility] MCHC 31.1 30.7 - 35.5 g/dL LAB HEMATOLOGY METHOD 02/20/2023 3:01 AM EST [facility] RDW 17.0(H) 11.5 - 14.5 % LAB HEMATOLOGY METHOD 02/20/2023 3:01 AM EST [facility] MPV 9.5 8.8 - 12.5 fL LAB HEMATOLOGY METHOD 02/20/2023 3:01 AM EST [facility] nRBC 0.0 <=0.0 per 100 WBCs LAB HEMATOLOGY METHOD 02/20/2023 3:01 AM EST [facility] Differential Type Automated LAB HEMATOLOGY METHOD 02/20/2023 3:01 AM EST [facility] Neutrophils % 64.0 % LAB HEMATOLOGY METHOD 02/20/2023 3:01 AM EST [facility] Lymphocytes % 27.0 % LAB HEMATOLOGY METHOD 02/20/2023 3:01 AM EST [facility] Monocytes % 6.0 % LAB HEMATOLOGY METHOD 02/20/2023 3:01 AM EST [facility] Eosinophils % 1.0 % LAB HEMATOLOGY METHOD 02/20/2023 3:01 AM EST [facility] Basophils % 1.0 % LAB HEMATOLOGY METHOD 02/20/2023 3:01 AM EST [facility] Immature Granulocytes % 1.0 % LAB HEMATOLOGY METHOD 02/20/2023 3:01 AM EST [facility] Neutrophils Absolute 5.10 1.60 - 6.10 10*3/uL LAB HEMATOLOGY METHOD 02/20/2023 3:01 AM EST [facility] Lymphocytes Absolute 2.10 1.20 - 3.90 10*3/uL LAB HEMATOLOGY METHOD 02/20/2023 3:01 AM EST [facility] Monocytes Absolute 0.44 0.30 - 0.90 10*3/uL LAB HEMATOLOGY METHOD 02/20/2023 3:01 AM EST [facility] Eosinophils Absolute 0.08 0.00 - 0.50 10*3/uL LAB HEMATOLOGY METHOD 02/20/2023 3:01 AM EST [facility] Basophils Absolute 0.05 0.00 - 0.10 10*3/uL LAB HEMATOLOGY METHOD 02/20/2023 3:01 AM EST [facility] Immature Granulocytes Absolute 0.04 0.00 - 0.06 10*3/uL LAB HEMATOLOGY METHOD 02/20/2023 3:01 AM EST [facility] Blood Venous blood specimen / Unknown Venipuncture / Unknown 02/20/2023 2:19 AM EST 02/20/2023 2:50 AM EST Narrative [facility] - 02/20/2023 3:01 AM EST Therapeutic decision making should be based on absolute values, rather than percentages. Veda NAJERA LAB BLOOD ORDERABLES Final R esult [facility] [address] [place] [address] documented in this encounter Visit Diagnoses Diagnosis Acute on chronic pancreatitis (CMS/HCC)- Primary Alcohol-induced chronic pancreatitis (CMS/HCC) Chronic pancreatitis Intractable nausea and vomiting Depression Depressive disorder, not elsewhere classified Anxiety Anxiety state, unspecified Fibromyalgia Unspecified myalgia and myositis GERD (gastroesophageal reflux disease) Esophageal reflux Obesity Obesity, unspecified Chronic pain Other chronic pain Opiate dependence (CMS/HCC) Opioid type dependence, unspecified abuse Hypertension Unspecified essential hypertension Nicotine dependence Tobacco use disorder Marijuana use Hyperglycemia Other abnormal glucose Intractable nausea and vomiting documented in this encounter Administered Medications Inactive Administered Medications - up to 3 most recent administrations Medication Order MAR Action Action Date Dose Rate Site acetaminophen (Tylenol) tablet 1,000 mg 1,000 mg, Oral, Every 6 hours PRN, Starting on Thu02/20/23 at 1140, Until Thu02/24/23 at 1546, Routine, moderate pain Given 02/23/2023 2:35 PM EST 1,000 mg Given 02/20/2023 12:51 PM EST 1,000 mg cholecalciferol (Vitamin D-3) tablet 2,000 Units 2,000 Units, Oral, Daily, First dose on Thu02/20/23 at 1200, Until Discontinued, Routine Given 02/24/2023 8:11 AM EST 2,000 Units Given 02/23/2023 8:15 AM EST 2,000 Units Given 02/22/2023 8:56 AM EST 2,000 Units cyanocobalamin (Vitamin B-12) tablet 1,000 mcg 1,000 mcg, Oral, Daily, First dose on Thu02/20/23 at 1200, Until Discontinued, Routine Given 02/24/2023 8:11 AM EST 1,000 mcg Given 02/23/2023 8:16 AM EST 1,000 mcg Given 02/22/2023 8:42 AM EST 1,000 mcg cyproheptadine (Periactin) tablet 4 mg 4 mg, Oral, 3 times daily, First dose on Thu02/21/23 at 1600, Until Discontinued, Routine Given 02/23/2023 8:15 AM EST 4 mg Given 02/22/2023 8:06 PM EST 4 mg Given 02/22/2023 4:09 PM EST 4 mg DULoxetine (Cymbalta) DR capsule 60 mg 60 mg, Oral, Daily, First dose on Thu02/20/23 at 1200, Until Discontinued, Routine Given 02/24/2023 8:11 AM EST 60 mg Given 02/23/2023 8:15 AM EST 60 mg Given 02/22/2023 8:42 AM EST 60 mg enoxaparin (Lovenox) syringe 40 mg 40 mg, Subcutaneous, Daily, First dose on Thu02/20/23 at 1200, Until Discontinued, Routine Given 02/24/2023 8:10 AM EST 40 mg Right Upper Arm (Back) Given 02/23/2023 8:15 AM EST 40 mg Le ft Lower Abdomen Given 02/22/2023 8:41 AM EST 40 mg Le ft Lower Abdomen famotidine PF (Pepcid) injection 20 mg 20 mg, Intravenous, Every 12 hours, First dose on Thu02/20/23 at 0645, Until Discontinued, Routine Given 02/20/2023 7:37 AM EST 20 mg HYDROmorphone (Dilaudid) injection 0.5 mg 0.5 mg, Intravenous, Once, 1 dose, On Thu02/20/23 at 0155, STAT Given 02/20/2023 2:23 AM EST 0.5 mg HYDROmorphone (Dilaudid) injection 0.5 mg 0.5 mg, Intravenous, Every 3 hours PRN, Starting on Thu02/20/23 at 0620, Until Thu02/20/23 at 1336, Routine, moderate pain, mild - moderate pain Given 02/20/2023 10:10 AM EST 0.5 mg Given 02/20/2023 10:06 AM EST 0.5 mg Given 02/20/2023 6:35 AM EST 0.5 mg HYDROmorphone (Dilaudid) injection 0.5 mg 0.5 mg, Intravenous, Once, 1 dose, On Thu02/20/23 at 0750, Routine Given 02/20/2023 8:22 AM EST 0.5 mg HYDROmorphone (Dilaudid) injection 0.5 mg 0.5 mg, Intravenous, Every 6 hours PRN, Starting on Thu02/20/23 at 1341, Until Thu02/23/23 at 1104, Routine, severe pain Given 02/23/2023 7:14 AM EST 0.5 mg Given 02/23/2023 1:09 AM EST 0.5 mg Given 02/22/2023 7:02 PM EST 0.5 mg HYDROmorphone (Dilaudid) injection 0.5 mg 0.5 mg, Intravenous, Once, 1 dose, On Thu02/21/23 at 1300, Routine Given 02/21/2023 12:46 PM EST 0.5 mg HYDROmorphone (Dilaudid) injection 1 mg 1 mg, Intravenous, Once, 1 dose, On Thu02/20/23 at 0300, STAT Given 02/20/2023 3:07 AM EST 1 mg HYDROmorphone (Dilaudid) injection 1 mg 1 mg, Intravenous, Once, 1 dose, On Thu02/23/23 at 1130, Routine Given 02/23/2023 11:53 AM EST 1 mg ketorolac (Toradol) injection 15 mg 15 mg, Intravenous, Once, 1 dose, On Thu02/20/23 at 2130, Routine Given 02/20/2023 9:38 PM EST 15 mg ketorolac (Toradol) injection 15 mg 15 mg, Intravenous, Every 6 hours PRN, 2 doses, Starting on Thu02/22/23 at 1852, Until Thu02/24/23 at 1546, Routine, severe pain Given 02/23/2023 8:15 AM EST 15 mg lactated Ringer's infusion 1,000 mL 1,000 mL, Intravenous, Once (Bolus), On Thu02/20/23 at 0155, STAT New Bag 02/20/2023 2:17 AM EST 1,000 mL lactated Ringer's infusion 100 mL/hr, Intravenous, Continuous, Starting on Thu02/20/23 at 0625, Until Thu02/20/23 at 1635, Routine New Bag 02/20/2023 6:36 AM EST 100 mL/hr 100 m L/hr LORazepam (Ativan) injection 0.5 mg 0.5 mg, Intravenous, Once, 1 dose, On Thu02/20/23 at 0625, Routine Given 02/20/2023 6:33 AM EST 0.5 mg LORazepam (Ativan) tablet 2 mg 2 mg, Oral, Every 12 hours PRN, Starting on Thu02/20/23 at 1141, Until Thu02/24/23 at 1546, anxiety Given 02/24/2023 8:10 AM EST 2 mg Given 02/23/2023 8:28 PM EST 2 mg Given 02/23/2023 8:19 AM EST 2 mg melatonin tablet 9 mg 9 mg, Oral, Nightly PRN, Starting on Thu02/20/23 at 0632, Until Thu02/24/23 at 1546, sleep Given 02/24/2023 4:08 AM EST 9 mg Given 02/23/2023 12:05 AM EST 9 mg Given 02/20/2023 8:39 PM EST 9 mg metoclopramide (Reglan) injection 10 mg 10 mg, Intravenous, Once, 1 dose, On Thu02/20/23 at 0155, STAT Given 02/20/2023 2:18 AM EST 10 mg metoclopramide (Reglan) injection 10 mg 10 mg, Intravenous, Every 6 hours PRN, Starting on 02/21/23 at 1234, Until Thu02/24/23 at 1546, Routine, nausea, vomiting Given 02/23/2023 9:56 AM EST 10 mg Given 02/22/2023 12:11 PM EST 10 mg Given 02/21/2023 11:50 PM EST 10 mg morphine PF 2 mg 2 mg, Intravenous, Once, 1 dose, On Thu02/20/23 at 2130, Routine Given 02/20/2023 9:37 PM EST 2 mg nicotine (Nicoderm CQ) 21 MG/24HR patch 1 patch 1 patch, Transdermal, Daily, First dose on Thu02/20/23 at 1715, Until Discontinued, Routine Medication Applied 02/24/2023 8:10 AM EST 1 patch Left Arm Medication Applied 02/20/2023 5:08 PM EST 1 patch Left Arm ondansetron (Zofran) injection 4 mg 4 mg, Intravenous, Once, 1 dose, On Thu02/20/23 at 0430, STAT Given 02/20/2023 4:43 AM EST 4 mg ondansetron (Zofran) injection 4 mg 4 mg, Intravenous, Every 6 hours PRN, Starting on Thu02/20/23 at 1000, Until Thu02/24/23 at 1546, STAT, nausea, vomiting Given 02/23/2023 11:43 PM EST 4 mg Given 02/23/2023 6:45 PM EST 4 mg Given 02/23/2023 7:14 AM EST 4 mg oxyCODONE (Roxicodone) immediate release tablet 10 mg 10 mg, Oral, Every 4 hours PRN, Starting on Thu02/20/23 at 1341, Until 02/21/23 at 1234, Routine, severe pain Given 02/21/2023 9:58 AM EST 10 mg Given 02/21/2023 3:31 AM EST 10 mg Given 02/20/2023 8:39 PM EST 10 mg oxyCODONE (Roxicodone) immediate release tablet 15 mg 15 mg, Oral, Every 4 hours PRN, Starting on 02/21/23 at 1234, Until Thu02/22/23 at 1108, Routine, severe pain Given 02/22/2023 8:38 AM EST 15 mg Given 02/22/2023 3:40 AM EST 15 mg Given 02/21/2023 9:32 PM EST 15 mg oxyCODONE (Roxicodone) immediate release tablet 20 mg 20 mg, Oral, Every 4 hours PRN, Starting on Thu02/22/23 at 1108, Until Thu02/24/23 at 1546, Routine, severe pain Given 02/24/2023 12:17 PM EST 20 mg Given 02/24/2023 8:11 AM EST 20 mg Given 02/24/2023 4:04 AM EST 20 mg pancrelipase (Creon) 6000 unit capsule 1 capsule, Oral, 3 times daily with meals, First dose on 02/21/23 at 1730, Until Discontinued, Routine Given 02/24/2023 8:11 AM EST 1 capsule Given 02/23/2023 8:15 AM EST 1 capsule Given 02/22/2023 5:30 PM EST 1 capsule pantoprazole (Protonix) injection 40 mg 40 mg, Intravenous, Daily, First dose on Thu02/20/23 at 0900, Until Discontinued, Routine Given 02/24/2023 8:0 9 AM EST 40 mg Given 02/23/2023 8:15 AM EST 40 mg Given 02/22/2023 8:41 AM EST 40 mg polyethylene glycol (Miralax) packet 17 g 17 g, Oral, Daily PRN, Starting on Thu02/20/23 at 0620, Until Thu02/24/23 at 1546, Routine, constipation pregabalin (Lyrica) capsule 300 mg 300 mg, Oral, 2 times daily, First dose on Thu02/20/23 at 1200, Until Discontinued Given 02/24/2023 8:11 AM EST 300 mg Given 02/23/2023 8:28 PM EST 300 mg Given 02/23/2023 8:15 AM EST 300 mg sodium chloride 0.9 % flush 10 mL 10 mL, Intravenous, Every 8 hours PRN, Starting on Thu02/20/23 at 0615, Until Thu02/24/23 at 1546, Routine, line care sodium chloride 0.9 % flush 10 mL 10 mL, Intravenous, As needed, Starting on Thu02/20/23 at 0615, Until Thu02/24/23 at 1546, Routine, line care documented in this encounter Active and Recently Administered Medications Times are shown in EST. Scheduled Medication Order 02/22/2023 02/23/2023 02/24/2023 cholecalciferol (Vitamin D-3) tablet 2,000 Units 2,000 Units, Oral, Daily, First dose on Thu02/20/23 at 1200, Until Discontinued, Routine 0856 (Given - Provider: Katy Avila) 0815 (Given - Provider: Sherrill Turcios, CHANDNI) 0811 (Given - Provider: Karen Bishop) cyanocobalamin (Vitamin B-12) tablet 1,000 mcg 1,000 mcg, Oral, Daily, First dose on Thu02/20/23 at 1200, Until Discontinued, Routine 0842 (Given - Provider: Katy Avila) 0816 (Given - Provider: Sherrill Turcios, CHANDNI) 0811 (Given - Provider: Karen Bishop) cyproheptadine (Periactin) tablet 4 mg (CANCELED) 4 mg, Oral, 3 times daily, First dose on Thu02/21/23 at 1600, Until Discontinued, Routine 0841 (Given - Provider: Katy Avila)1609 (Given - Provider: Katy Avila)2005 (Given - Provider: Veda Posey, CHANDNI) 0815 (Given - Provider: Sherrill Turcios, CHANDNI) DULoxetine (Cymbalta) DR capsule 60 mg 60 mg, Oral, Daily, First dose on Thu02/20/23 at 1200, Until Discontinued, Routine 0842 (Given - Provider: Katy Avila) 0815 (Given - Provider: Sherrill Turcios, CHANDNI) 0811 (Given - Provider: Karen Bishop) enoxaparin (Lovenox) syringe 40 mg 40 mg, Subcutaneous, Daily, First dose on Thu02/20/23 at 1200, Until Discontinued, Routine 0841 (Given - Provider: Katy Avila) 0815 (Given - Provider: Sherrill Turcios, CHANDNI) 0810 (Given - Provider: Karen Bishop) HYDROmorphone (Dilaudid) injection 1 mg (COMPLETED) 1 mg, Intravenous, Once, 1 dose, On Thu02/23/23 at 1130, Routine 1153 (Given - Provider: Sherrill Turcios, CHANDNI) lactated Ringer's infusion 1,000 mL 1,000 mL, Intravenous, Once (Bolus), On Thu02/20/23 at 0155, STAT nicotine (Nicoderm CQ) 21 MG/24HR patch 1 patch 1 patch, Transdermal, Daily, First dose on Thu02/20/23 at 1715, Until Discontinued, Routine 0840 (Not Given - Provider: Katy Avila - Reason: Patient/family refused) 0816 (Not Given - Provider: Sherrill Turcios RN - Reason: Hold for condition: must add comment ) 0810 (Medication Applied - Provider: Kaern Bishop)1346 (Due: Medication Removed - Provider: Automatic Discharge Provider - Comment: Time automatically adjusted from order being discontinued) pancrelipase (Creon) 6000 unit capsule 1 capsule, Oral, 3 times daily with meals, First dose on Thu02/21/23 at 1730, Until Discontinued, Routine 0841 (Given - Provider: Katy Avila)1257 (Given - Provider: Katy Avila)1730 (Given - Provider: Katy Avila) 0815 (Given - Provider: Sherrill Turcios RN)1134 (Not Given - Provider: Sherrill Turcios RN - Reason: Patient/family refused - Comment: states she is not eating lunch due to pain)1737 (Not Given - Provider: Sherrill Turcios RN - Reason: Hold for condition: must add comment ) 0811 (Given - Provider: Karen Bishop)1218 (Not Given - Provider: Karen Bishop - Reason: Patient/family refused) pantoprazole (Protonix) injection 40 mg 40 mg, Intravenous, Daily, First dose on Thu02/20/23 at 0900, Until Discontinued, Routine 0841 (Given - Provider: Katy Avila) 0815 (Given - Provider: Sherrill Turcios, CHANDNI) 0809 (Given - Provider: Karen Bishop) pregabalin (Lyrica) capsule 300 mg 300 mg, Oral, 2 times daily, First dose on Thu02/20/23 at 1200, Until Discontinued 0856 (Given - Provider: Katy Avila)2005 (Given - Provider: Veda Posey RN) 0815 (Given - Provider: Sherrill Turcios, CHANDNI)2027 (Given - Provider: Disha Almeida) 0811 (Given - Provider: Karen Bishop) PRN Medication Order 02/22/2023 02/23/2023 02/24/2023 acetaminophen (Tylenol) tablet 1,000 mg 1,000 mg, Oral, Every 6 hours PRN, Starting on Thu02/20/23 at 1140, Until Thu02/24/23 at 1546, Routine, moderate pain 1435 (Given - Provider: Sherrill Turcios, CHANDNI) HYDROmorphone (Dilaudid) injection 0.5 mg (CANCELED) 0.5 mg, Intravenous, Every 6 hours PRN, Starting on Thu02/20/23 at 1341, Until Thu02/23/23 at 1104, Routine, severe pain 0552 (Given - Provider: Geneva Thompson RN)1259 (Given - Provider: Katy Avila)1902 (Given - Provider: Katy Avila) 0109 (Given - Provider: Veda Posey, CHANDNI)0714 (Given - Provider: Veda Posey, CHANDNI) ketorolac (Toradol) injection 15 mg 15 mg, Intravenous, Every 6 hours PRN, 2 doses, Starting on Thu02/22/23 at 1852, Until Thu02/24/23 at 1546, Routine, severe pain 0815 (Given - Provider: Sherrill Turcios, CHANDNI) LORazepam (Ativan) tablet 2 mg 2 mg, Oral, Every 12 hours PRN, Starting on Thu02/20/23 at 1141, Until Thu02/24/23 at 1546, anxiety 0606 (Given - Provider: Geneva Thompson RN)2005 (Given - Provider: Veda Posey RN) 0819 (Given - Provider: Sherrill Turcois, CHANDNI)2028 (Given - Provider: Disha Almeida) 0810 (Given - Provider: Karen Bishop) melatonin tablet 9 mg 9 mg, Oral, Nightly PRN, Starting on Thu02/20/23 at 0632, Until Thu02/24/23 at 1546, sleep 0005 (Given - Provider: Veda Posey RN) 0408 (Given - Provider: Disha Almeida) metoclopramide (Reglan) injection 10 mg 10 mg, Intravenous, Every 6 hours PRN, Starting on 02/21/23 at 1234, Until Thu02/24/23 at 1546, Routine, nausea, vomiting 1211 (Given - Provider: Sarahy Shelley RN) 0956 (Given - Provider: Sherrill Turcios RN) ondansetron (Zofran) injection 4 mg 4 mg, Intravenous, Every 6 hours PRN, Starting on Thu02/20/23 at 1000, Until Thu02/24/23 at 1546, STAT, nausea, vomiting 0856 (Given - Provider: Katy Avila)1731 (Given - Provider: Katy Avila) 0714 (Given - Provider: Veda Posey RN)1845 (Given - Provider: Sherrill Turcios RN)2343 (Given - Provider: Disha Almeida) oxyCODONE (Roxicodone) immediate release tablet 15 mg (CANCELED) 15 mg, Oral, Every 4 hours PRN, Starting on 02/21/23 at 1234, Until 02/22/23 at 1108, Routine, severe pain 0340 (Given - Provider: Veda Posey RN)0838 (Given - Provider: Katy Avila) oxyCODONE (Roxicodone) immediate release tablet 20 mg 20 mg, Oral, Every 4 hours PRN, Starting on 02/22/23 at 1108, Until Thu02/24/23 at 1546, Routine, severe pain 1211 (Given - Provider: Sarahy Shelley, CHANDNI)1609 (Given - Provider: Katy Avila)2006 (Given - Provider: Veda Posey, RN) 0005 (Given - Provider: Veda Posey, RN)0522 (Given - Provider: Veda Posey, CHANDNI)0956 (Given - Provider: Sherrill Turcios, CHANDNI)1436 (Given - Provider: Sherrill Turcios, CHANDNI)1845 (Given - Provider: Sherrill Turcios, CHANDNI)2342 (Given - Provider: Disha Alemida) 0404 (Given - Provider: Disha Almeida)0811 (Given - Provider: Karen Bishop)1217 (Given - Provider: Karen Bishop) polyethylene glycol (Miralax) packet 17 g 17 g, Oral, Daily PRN, Starting on Thu02/20/23 at 0620, Until Thu02/24/23 at 1546, Routine, constipation sodium chloride 0.9 % flush 10 mL(Linked Group 1) 10 mL, Intravenous, Every 8 hours PRN, Starting on Thu02/20/23 at 0615, Until Thu02/24/23 at 1546, Routine, line care sodium chloride 0.9 % flush 10 mL(Linked Group 1) 10 mL, Intravenous, As needed, Starting on Thu02/20/23 at 0615, Until Thu02/24/23 at 1546, Routine, line care Linked Groups Order Group 1: Insert peripheral IV (COMPLETED) Once, On Thu02/20/23 at 0616, For 1 occurrence And Saline lock IV (COMPLETED) Once, On Thu02/20/23 at 0616, For 1 occurrence And sodium chloride 0.9 % flush 10 mLJump to med 10 mL, Intravenous, Every 8 hours PRN, Starting on Thu02/20/23 at 0615, Until Thu02/24/23 at 1546, Routine, line care And sodium chloride 0.9 % flush 10 mLJump to med 10 mL, Intravenous, As needed, Starting on Thu02/20/23 at 0615, Until Thu02/24/23 at 1546, Routine, line care documented in this encounter Additional Health Concerns Assessment Noted Time A fall risk assessment has been complete d for the patient 11/21/2020 2:30 PM EDT A Body Mass Index follow-up plan has been documented for the patient 02/24/2023 11:55 AM EST documented as of this encounter Care Teams Security Assurance Specialist Relationship Specialty Start Date End Date Rafiq Song DO [address] [place] [address] PCP - General 01/06/23 03/16/23 documented as of this encounter
--- OUTSIDE RECORDS SUMMARY | 2024-02-03 15:16 | XMS_ITS | Encounter Summary ---
Author Organization [facility] Address [address] [place] [address] Care Team Providers Care Bingo Clerk Name Role Phone Elmo Escobar MD Primary Care Provider [phone] Reason for Referral * Consultation (Routine) - Authorized Specialty Diagnoses / Procedures Referred By Susy burks Referred To Contact Gastroenterology Diagnoses Chronic pancreatitis, unspecified pancreatitis type (CMS/HCC) Gage Mathis MD [address] [place] [address] Phone: tel: fax: [facility] [address] [place] [address] Phone: tel: fax: Referral ID Status Reason Start Date Expiration Date Visits Requested Visits Authorized Authorized Specialty Services Required 01/01/2023 07/02/2024 1 1 Scheduling Instructions Chronic pancreatitis * Consultation (Routine) - Authorized Specialty Diagnoses / Procedures Referred By Susy burks Referred To Contact Family Medicine Diagnoses Chronic pancreatitis, unspecified pancreatitis type (CMS/HCC) Gage Mathis MD [address] [place] [address] Phone: tel: fax: Referral ID Status Reason Start Date Expiration Date V isits Requested Visits Authorized [id number] Authorized 01/01/2023 07/02/2024 1 1 Reason for Visit * Reason Comments Abdominal Pain * Auth/Cert (Routine) Specialty Diagnoses / Procedures Referred By Contac t Referred To Contact Diagnoses Acute on chronic pancreatitis (CMS/HCC) Usha Alejandre MD [address] [place] [address] Phone: tel: fax: [facility] [address] [place] [address] Phone: tel: Referral ID Status Reason Start Date Expiration Date Visits Re quested Visits Authorized [id number] 1 1 Encounter Details Date Type Department Care Team (Latest Contact Info) Description 12/27/2022 5:04 PM EDT - 01/01/2023 2:15 PM EST Hospital Encounter [facility] [address] [place] [address] Kayla Ramos MD [address] [place] [address] Usha Alejandre MD [address] [place] [address] Jens Marie MD [address] [place] [address] Gage Mathis MD [address] [place] [address] Chronic pancreatitis, unspecified pancreatitis type (CMS/HCC) (Primary Dx) Discharge Disposition: Home or Self Care Social History Tobacco Use Types Packs/Day Years Used Date Smoking Tobacco: Every Day Cigarettes 1 15 Smokeless Tobacco: Never Tobacco Cessation:Ready to Q [...] slept in a detention (including now)? No 12/29/2022 CAGE ASSESSMENT Answer [...] first t caleb in the morning ([employer]) to steady your nerves or to get rid of a hangover? 0 12/28/2022 CAGE Questionnaire Score 1 023 Utilities Answer Date Recorded In the past 12 months has th e [email or web address], [facility], oil, or water [employer] threatened to shut off services in your [...] Sign Reading Time Taken Comments Blood Pressure 139/88 01/01/2023 7:27 AM EST Pulse 56 01/01/2023 7:27 AM EST Temperature 36.1 ??C (97 ??F) 01/01/2023 7:27 AM EST Respiratory Rate 18 01/01/2023 2:53 AM EST Oxygen Saturation 95% 01/01/2023 7:27 AM EST Inhaled Oxygen Concentration - - Weight 107 kg (235 lb 14.3 oz) 12/27/2022 11:12 PM EDT Height 165.1 cm (5' 5 ) 12/27/2022 11:12 PM EDT Body Mass Index 39.25 12/27/2022 11:12 PM EDT documented in this encounter Discharge Instructions * Discharge Instructions* Gage Mathis MD - 01/01/2023 8:57 AM EST Adhere to low fat diet If pain returns, return to liquid diet only Avoid all alcohol Use opioid medications sparingly for acute, severe pain only. Keep them in the bottle in which theycome and either locked up or on your person at all times. * Attachments The following attachments cannot be sent through Care Everywhere. * Pancreatitis (Palestinian) * Acute Pancreatitis, Discharge Instructions for (Palestinian) * Pancreatic Pseudocysts (Palestinian) * Pancreatitis, Understanding (Palestinian) documented in this encounter Medications at Time of Discharge pantoprazole (Protonix) 40 MG EC tablet Take 1 tablet (40 mg) by mouth 1 (one) time each day. Do not crush, chew, or split. oxyCODONE (Roxicodone) 5 MG immediate release tablet Take 3 tablets (15 mg) by mouth every 8 (eight) hours if needed for severe pain for up to 3 days. 20 tablet 01/01/2023 3 pancrelipase, Gan-Uehw-Famn, (Creon) 6000-42649 units capsule Take 1 capsule by mouth 3 (three) times a day with meals. 90 capsule 1 01/01/2023 4 polyethylene glycol (Miralax) 17 g packet Take 17 g by mouth 1 (one) time each day for 3 days. 3 packet 01/01/2023 3 acetaminophen (Tylenol) 500 MG tablet Take 2 [...] if needed for nausea or vomiting. 3 sucralfate (Carafate) 1 GM/10ML suspension Take 10 mL (1 g) by mouth 4 (four) times a day. 4 documented as of this encounter Miscellaneous Notes * Progress Notes - Gage Mathis MD - 01/01/2023 2:15 PM EST Physician Clarification Please review the following and provide your response below. Based on the above please clarify in the Progress Notes the appropriate diagnosis, if significant, that supports the above abnormalities on CT A/P. -Yes, I agree with radiology's finding of probable portal HTN -The finding of probable portal HTN is not clinically significant for this patient This documentation will become part of the patient's medical record. The radiologist findings are likely accurate, however portal hypertension was not a significant portion of her hospitalization and did not impact the care provided. Gage Mathis MD, [facility], FACP Kitchen Aide Division of Hospital Medicine * Discharge Summary - Gage Mathis MD - 01/01/2023 1:22 PM EST HOSPITAL MEDICINE DISCHARGE SUMMARY Hospitalization Admit Date/Time: 12/27/2022 5:04 PM Admitting Attending: Usha Alejandre Discharge Date: 01/01/2023 Discharge Attending Physician: Gage Mathis MD PCP name and Address: Elmo Escobar MD [facility] [place] [address] Referring provider name and address: No referring provider defined for this encounter. Chief Concern, Brief History of Present Illness, and Hospital Course: 37-year-old woman with chronic pancreatitis and fibromyalgia admitted with acute on chronic pain. Likely exacerbation of pancreatitis related to recent alcohol intake. Transitioned effectively to oral opioids and was able to tolerate liquid diet with low-fat solid foods prior to discharge. She will follow up with an outside pain clinic to pursue nerve block as previously planned and withGI to explore other options for managing her chronic pancreatitis. She understands the importance of total cessation from all alcohol. She will adhere to a low-fat diet, and we will returned to a liquid diet if necessary because of recurrent pain. Hospital course by problem: 1. Pancreatitis: Acute on chronic pancreatitis with severe abdominal pain consistent with chronic pain syndrome. Acute pain likely precipitated by recent alcohol intake. In pursuit of nerve block as an outpatient for chronic pain. Tolerated liquid diet for greater than 24 hours and was tolerating low-fat solid foods prior to discharge. -continue oxycodone 15 mg as needed for severe pain -continue pancreatic enzymes and bowel regimen -continue home pregabalin -follow up with outside pain clinic and GI 2. Neutropenia: Chronic mild neutropenia over the past several years, slowly downtrending. Most likely indicative of progressive underlying liver disease related to obesity and alcohol intake. -Advancing diet as above -GI follow-up as above 3. Fibromyalgia: Confounds acute on chronic pancreatic pain. -continue pregabalin and duloxetine 4. GERD: History of gastritis. -continue acid suppression and sucralfate Surgeries and Procedures 12/29/22 CT ABDOMEN FINDINGS: Lower Chest: Unchanged well-circumscribed 2.2 cm medial right breast lesion, statistically a fibroadenoma by appearance and size stability dating back to 2016. Unchanged presumed postinfectious/postinflammatory subcentimeter pulmonary nodules within the right middle lobe and lower lobe, for example3:4, stable dating back to at least July 2021. Solid Abdominal Organs: Grossly unremarkable CT appearance of the pancreas without abnormal ductal dilatation/irregularity or parenchymal calcifications to suggest overt sequela of chronic pancreatitis. No signs of pancreatic parenchymal edema, abnormal peripancreatic fat stranding or fluid collections to suggest acute pancreatitis. Hepatic morphology and parenchymal enhancement is grossly within normal limits. No focal hepatic lesions. Prior cholecystectomy. Nondilated. Tree. Unremarkable pancreas, adrenal glands and kidneys. Borderline splenomegaly measuring 13.2 cm in craniocaudal oblique long axis. No splenic focal lesions. GI Tract/Mesentery/Peritoneum: No evidence of GI tract obstruction, perforation or focal inflammation. Unremarkable appendix. No mesenteric/omental masses or peritoneal fluid collections. Pelvic Viscera: Grossly unremarkable under distended urinary bladder. Slightly asymmetric enlargement of the right ovary/adnexa with right periadnexal free fluid which is new when compared to 5 weeksprior, likely recent right sided ovulation. Lymph Nodes/Vasculature: No suspicious adenopathy by CT size criteria. No large vessel occlusions or aneurysms. Dilated appearing portal and splenic vein, probably representing underlying portal hypertension. Free Fluid:No significant ascites. Small volume pelvic and right adnexal free fluid is within physiologic limits for age. Musculoskeletal and Body Wall:No acute or aggressive findings. IMPRESSION: No overt findings of acute or chronic pancreatitis by CT. Please note that early mild pancreatitis can be occult on imaging. Prominent appearing right ovary/adnexa with increased fluid within the right adnexa and cul-de-sac and compared to CT 5 weeks prior, probably representing sequela of recent ovulation. Please correlate with site of pain to exclude mittelschmerz as the reason for symptomatology. Medication List .. acetaminophen 500 MG tablet [...] a day if needed for heartburn. LORazepam 2 MG tablet Commonly known as: Ativan Take 1 tablet (2 mg) by mouth 2 (two) times a day. MELATONIN PO Take 1 tablet by mouth at night if needed. naloxone 4 mg/0.1 mL nasal spray Commonly known as: Narcan 1. Give 1 spray in nostril for no/slow breathing or cannot wake after opioid use 2. Call 911 3. Repeat in other nostril if symptoms continue 1 spray nicotine 21 MG/24HR patch Commonly known as: Nicoderm CQ Place 1 patch on the skin 1 (one) time each day over 24 hours. ondansetron ODT 4 MG disintegrating tablet Commonly known as: Zofran-ODT Take 1 tablet (4 mg) by mouth every 8 (eight) hours if needed for nausea or vomiting. oxyCODONE 5 MG immediate release tablet Commonly known as: Roxicodone Take 3 tablets (15 mg) by mouth every 8 (eight) hours if needed for severe pain for up to 3 days. pancrelipase (Moi-Aqoc-Sstj) 6000-34773 units capsule Commonly known as: Creon Take 1 capsule by mouth 3 (three) times a day with meals. pantoprazole 40 MG EC tablet Commonly known as: Protonix Take 1 tablet (40 mg) by mouth 2 (two) times a day. Do not crush, chew, or split. polyethylene glycol 17 g packet Commonly known as: Miralax Take 17 g by mouth 1 (one) time each day for 3 days. pregabalin 300 MG capsule Commonly known as: Lyrica Take 1 capsule (300 mg) by mouth 2 (two) times a day. prochlorperazine 10 MG tablet Commonly known as: Compazine Take 1 tablet (10 mg) by mouth every 6 (six) hours if needed for nausea or vomiting. sucralfate 1 GM/10ML suspension Commonly known as: Carafate Take 10 mL (1 g) by mouth 4 (four) times a day. Where to Get Your Medications These medications were sent to [facility] [place] [address] nicotine 21 MG/24HR patch oxyCODONE 5 MG immediate release tablet pancrelipase (Cxd-Dewt-Ywlj) 6000-20520 units capsule polyethylene glycol 17 g packet Discharge Diagnosis Medical Problems Active and Resolved Hospital Problems Hospital * (Principal) Acute on chronic pancreatitis (CMS/HCC) Post Discharge Instructions Adhere to low fat diet If pain returns, return to liquid diet only Avoid all alcohol Use opioid medications sparingly for acute, severe pain only. Keep them in the bottle in which theycome and either locked up or on your person at all times. Outpatient Follow-Up Future Appointments Date Time Provider Department Center 03/13/2023 8:40 AM [facility] Test Results Pending At Discharge None Pertinent Physical Exam At Time of Discharge General: no apparent distress, upright in bed HEENT: extra-ocular movements in-tact, no icterus/injection, mucous membranes moist CV: regular rate and rhythm, no murmurs appreciated Chest: clear to auscultation bilaterally Abdomen: Obese, soft, no significant tenderness, no guarding Extremities: no significant pitting bilateral ankle edema : no blair Psych: euthymic with normal attention span Discharge Disposition/Condition Disposition: Home Condition: Stable (s/sx potential problems absent or manageable) I spent >30 minutes of patient care and instruction time in preparation for this discharge. Gage Mathis MD, [facility], FACP Kitchen Aide Division of Hospital Medicine * Progress Notes - Katy Jaimes RN - 01/01/2023 11:56 AM EST Case Management Discharge Note Rosibel Gayle 37 y.o. female CSN: [id number] Admission: 12/27/2022 5:04 PM Primary Problem: Acute on chronic pancreatitis (CMS/HCC) Primary Patient Assistant: Primary Caregiver: Self Assistance Available at Discharge: Current Outpatient/Agency/Support Group: other (see comments) Availability of Care Givers (#Hours): No assistance needed Housing Circumstances-Z Codes: Housing Circumstances (select all that apply): Low Income (101-300% Federal Poverty Guidlines) - Z596 Patient Referred to Financial or Community Resources: Discharge Facility/Level of Care Needs: Discharge Facility/Level of Care Needs: 1-Home or Self Care Patient's Choice of Community Agency(s): Patient/Family Anticipated Services at Transition: DME/Equipment Needed after Discharge: Equipment Currently Used at Home: none Equipment Needed After Discharge: none Readmission Within the Last 30 Days: Readmission Within the Last 30 Days: other (see comments) Medicare Documentation: Follow-up: [facility] [address] [facility] [address] Discharge Transportation: Transportation Anticipated: family or friend will provide Transportation Home at Discharge: Family/Friend will Provide Has discharge transport been arranged?: No What day is the transport expected?: 01/01/23 Follow Up Transport: Family Additional Comments: Plan of care and discharge needs discussed during morning huddle. Per team, patient is medically ready to discharge home today. CM met with patient to discuss dc needs. Patient denies any needs, family will provide transportation home. Katy Jaimes RN * Care Plan - Tiffany Duron RN - 12/31/2022 10:08 PM EST Problem: Adult Inpatient Plan of Care Goal: Patient-Specific Goal (Individualized) Outcome: Ongoing, Progressing Flowsheets (Taken 12/31/2022 2100) Patient/Family-Specific Goals (Include Timeframe): pt will verbalized adequate pain management withinterventions this shift. Individualized Care Needs: pain management Anxieties, Fears or Concerns: pain Goal: Absence of Hospital-Acquired Illness or Injury Outcome: Ongoing, Progressing Goal: Optimal Comfort and Wellbeing Outcome: Ongoing, Progressing Goal: Readiness for Transition of Care Outcome: Ongoing, Progressing * Progress Notes - Gage Mathis MD - 12/31/2022 12:51 PM EST HOSPITAL MEDICINE PROGRESS NOTE HPI: 37 y.o. year old female admitted 12/27/2022 with acute on chronic abdominal pain. SUBJECTIVE: Acute on chronic pain related to pancreatitis now with acute pain syndrome. She reports intermittent but severe pain. The pain is sharp, stabbing pain in her left upper quadrant with radiation through to her back. It does not seem to be associated with oral intake. She tolerated liquids well and did much better on the increased dose of oral oxycodone. She does not feel strong enough to return home yet, but wishes to try a low-fat diet. She understands that liquid diet asan acceptable discharge plan if that means that her pain is under better control and she can not back to living life and caring for her children, which is her ultimate goal. Discussed the interaction between her pain and her depression/anxiety. She is aware that the interaction is significant, and managing her anxiety and depression is likely to help reduce her pain and vice versa. She intends to ambulate more around the unit today in the hopes calming her mind and improving her bowel function. OBJECTIVE: Visit Vitals BP 133/85 Pulse 71 Temp 36.3 ??C (97.3 ??F) Resp 16 Ht 1.651 m (5' 5 ) Wt 107 kg (235 lb 14.3 oz) SpO2 99% BMI 39.25 kg/m?? OB Status Having periods Smoking Status Every Day BSA 2.22 m?? Exam: General: no apparent distress, upright in bed, initially tearful but then engaged and became jovial HEENT: extra-ocular movements in-tact, no icterus/injection, mucous membranes moist CV: regular rate and rhythm, no murmurs appreciated Chest: clear to auscultation bilaterally Abdomen: Obese, soft, left upper quadrant tenderness, no guarding, bowel sounds present Extremities: no significant pitting bilateral ankle edema : no blair Psych: euthymic with normal attention span DATA: CBC WBC 3.51 (L) Hb 12.0 Plt 249 Hct 36.5 ANC 1.58 (L) BMP Na 134 (L) Cl 98 BUN 5 (L) Glu 101 (H) K 3.6 (L) Co2 28 Cr 0.72 Ca 9.1 iCa ?? LFT AST 35 AlkPhos 92 T Prot 6.4 ALK 28 Bili 0.4 Alb ?? D.Bili ?? Imaging: CT abdomen and pelvis with no overt findings suggestive of pancreatitis. ASSESSMENT & PLAN: 37 y.o. year old female with chronic pancreatitis. 1. Pancreatitis: Acute on chronic pancreatitis with severe abdominal pain consistent with chronic pain syndrome. Transitioned off IV opioids yesterday and is now tolerating clear liquids. In pursuit of nerve block as an outpatient for chronic pain. -continue oycodone 15mg q4 PRN for severe pain -continue scheduled acetaminophen and IV ketorolac as needed -advanced to low fat diet -continue pancreatic enzymes and bowel regimen 2. Neutropenia: Chronic mild neutropenia over the past several years, seems to be slowly downtrending. Perhaps nutritional from frequent bouts of pancreatitis but seems more likely indicative of underlying liver disease related to obesity and alcohol intake. -advancing nutrition as above -continue outpatient monitoring, possibly with GI follow-up 3. GERD: History of gastritis but denies any history of bleeding ulcers. -continue acid suppression and sucralfate 4. Fibromyalgia: Confounds acute on chronic pancreatic pain as above. -continue pregabalin and duloxetine 5. Nicotine dependence: Continue nicotine replacement FEN: as above, cholecal, B12, hypokalemia and hypomagnesemia repleted Ppx: LMWH Code: Full Code Medications at time of this note Scheduled: acetaminophen, 1,000 mg, Oral, TID cholecalciferol, 2,000 Units, Oral, Daily cyanocobalamin, 1,000 mcg, Oral, Daily DULoxetine, 60 mg, Oral, Daily enoxaparin, 40 mg, Subcutaneous, Daily nicotine, 1 patch, Transdermal, Daily pancrelipase (Zbs-Zqlu-Lftk), 1 capsule, Oral, TID with meals pantoprazole, 40 mg, Oral, Daily polyethylene glycol, 17 g, Oral, Daily pregabalin, 300 mg, Oral, BID sucralfate, 1 g, Oral, q6h INO Continuous: As needed: albuterol, 3 mL, q6h PRN ketorolac, 15 mg, q6h PRN LORazepam, 1 mg, BID PRN melatonin, 3 mg, Nightly PRN ondansetron, 4 mg, q6h PRN ondansetron ODT, 4 mg, q6h PRN oxyCODONE, 15 mg, q4h PRN sodium chloride, 10 mL, q8h PRN And sodium chloride, 10 mL, PRN Gage Mathis MD, [facility], FACP Kitchen Aide Division of Hospital Medicine * Progress Notes - Radha Sinclair RN - 12/31/2022 12:28 PM EST Case Management Adult Progress Note Rosibel Gayle 37 y.o. female [facility]: [id number] Admission: 12/27/2022 5:04 PM Primary Problem: Acute on chronic pancreatitis (CMS/HCC) Anticipated Discharge Date: TBD Has Discharge Plans Changed? Medicare Second Notice: Housing Circumstances: Housing Circumstances Action Taken: Additional Comments: linus of care and discharge plan reviewed this AM with treatment team. Plan for continued pain control, IV hydration, and medical management. Prior to admission Ms Gayle lived independently at home with her three children; plan to return to [facility]. Radha Sinclair RN * Care Plan - Easton Krishnamurthy RN - 12/31/2022 5:48 AM EST Problem: Adult Inpatient Plan of Care Goal: Plan of Care Review 12/31/2022547 by Easton Krishnamurthy RN Outcome: Ongoing, Not Progressing Flowsheets (Taken 12/31/20222327) Progress: improving Plan of Care Reviewed With: patient 12/31/20222327 by Easton Krishnamurthy RN Outcome: Ongoing, Progressing Flowsheets (Taken 12/31/20222327) Progress: improving Plan of Care Reviewed With: patient Goal: Patient-Specific Goal (Individualized) 12/31/2022547 by Easton Krishnamurthy RN Outcome: Ongoing, Not Progressing 12/31/20222327 by Easton Krishnamurthy RN Outcome: Ongoing, Progressing Goal: Absence of Hospital-Acquired Illness or Injury 12/31/2022547 by Easton Krishnamurthy RN Outcome: Ongoing, Not Progressing 12/31/20222327 by Easton Krishnamurthy RN Outcome: Ongoing, Progressing Goal: Optimal Comfort and Wellbeing 12/31/2022547 by Easton Krishnamurthy RN Outcome: Ongoing, Not Progressing 12/31/20222327 by Easton Krishnamurthy RN Outcome: Ongoing, Progressing Goal: Readiness for Transition of Care 12/31/2022547 by Easton Krishnamurthy RN Outcome: Ongoing, Not Progressing 12/31/20222327 by Easton Krishnamurthy RN Outcome: Ongoing, Progressing * Progress Notes - Gage Mathis MD - 12/30/2022 3:40 PM EST [facility] MEDICINE PROGRESS NOTE HPI: 37 y.o. year old female admitted 12/27/2022 with Chief Complaint Patient presents with Abdominal Pain SUBJECTIVE: Acute on chronic pain related to pancreatitis. Likely alcoholic pancreatitis, now chronic pain syndrome. She reports that her pain is still severe and she frequently wants to cry. She is not had any oral intake for the past 4 days, but is anxious about eating. She has tolerated sips of clears. We discussed IV versus oral pain medications, and the risk of making her pancreatitis worse if we continue to allow oral intake and then masking with IV opioids. She expressed understanding, and prefers to discontinue the IV narcotics in favorable oral intake. When she takes 10 mg of oxycodone, shegets very minimal relief. OBJECTIVE: Visit Vitals BP 128/87 Pulse 60 Temp 36.5 ??C (97.7 ??F) Resp 16 Ht 1.651 m (5' 5 ) Wt 107 kg (235 lb 14.3 oz) SpO2 98% BMI 39.25 kg/m?? OB Status Having periods Smoking Status Every Day BSA 2.22 m?? Exam: General: no apparent distress, upright in bed, intermittently tearful HEENT: extra-ocular movements in-tact, no icterus/injection, mucous membranes moist CV: regular rate and rhythm, no murmurs appreciated Chest: clear to auscultation bilaterall Abdomen: Obese, soft, left upper quadrant tenderness, bowel sounds present Extremities: no significant pitting bilateral ankle edema : no blair Psych: euthymic with normal attention span DATA: CBC WBC 4.03 Hb 10.4 (L) Plt 205 Hct 32.6 (L) ANC 2.61 BMP Na 137 Cl 102 BUN 5 (L) Glu 87 K 3.5 (L) Co2 27 Cr 0.68 Ca 8.4 (L) iCa ?? LFT AST 24 AlkPhos 86 T Prot 5.7 (L) ALK 24 Bili 0.4 Alb ?? D.Bili ?? Imaging: CT abdomen and pelvis with no overt findings suggestive of pancreatitis. ASSESSMENT & PLAN: 37 y.o. year old female with chronic pancreatitis. 1. Pancreatitis: Acute on chronic pancreatitis with severe abdominal pain consistent with chronic pain syndrome. She is aware that IV narcotics while taking oral intake is likely to worsen her pancreatic inflammation, and prefers to discontinue the IV for now in favor of oral intake. In pursuit of nerve block as an outpatient for chronic pain. -discontinue IV hydromorphone -increase oxycodone from 10 up to 15 mg every 4 hours as needed -initiate IV ketorolac for help with inflammatory pain -advanced to clear liquids with plans to advance to low-fat if tolerated -continue pancreatic enzymes and regimen 2. GERD: History of gastritis but denies any history of bleeding ulcers. -continue acid suppression and sucralfate 3. Fibromyalgia: Confounds acute on chronic pancreatic pain as above. -continue pregabalin and duloxetine 4. Nicotine dependence: Continue nicotine replacement FEN: as above, cholecal, B12 Ppx: LMWH Code: Full Code Medications at time of this note Scheduled: acetaminophen, 1,000 mg, Oral, TID cholecalciferol, 2,000 Units,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 Jens Marie MD LAB POINT OF CARE TE ST DOCKED DEVICE UNSOLICITED RESULTS Final Result Performing Organization Address [facility] Co de Phone Number [facility] [address] [place] [address] * POCT glucose meter (12/29/2022 6:10 PM EST) POCT Glucose 77 74 - 99 mg/dL 12/29/2022 6:12 PM EST [facility] Comment:Accuracy of a glucos e result obtained from a capillary whole blood specimen relies upon adequate, non-compromised capillary blood flow. If the capillary glucose result is not consistent with the patient's clinical signs and symptoms, glucose testing should be repeated with either an arterial or venous sample on the glucometer or sent to the main labortory for testing. Comment 12/29/2022 6:12 PM EST [facility] Transfer Operator ID Nirmala Cam 023 6:12 PM EST [facility] Device ID [id number] 12/29/2022 6:12 PM EST [facility] Specimen Type POC Capillary 12/29/2022 6:12 PM EST [facility] Blood Capillary blood specimen / Unknown 12/29/2022 6:10 PM EST 12/29/2022 6:12 PM EST us Jens Marie MD LAB POINT OF CARE TE ST DOCKED DEVICE UNSOLICITED RESULTS Final Result Performing Organization Address [facility] Phone Number [facility] [address] [place] [address] * CT Abdomen Pelvis w IV Contrast (12/29/2022 2:16 PM EST) Anatomical Region Laterality Modality Abdomen, Pelvis Computed Tomogra phy Impressions 12/29/2022 3:06 PM EST No overt findings of acute or chronic pancreatitis by CT. Please note that early mild pancreatitis can be occult on imaging. Prominent appearing right ovary/adnexa with increased fluid within the right adnexa and cul-de-sac and compared to CT 5 weeks prior, probably representing sequela of recent ovulation. Please correlate with site of pain to exclude mittelschmerz as the reason for symptomatology. CRITICAL RESULT: ?? No. COMMUNICATION: Per this written report. Drafted by Jude Hester MD on 12/29/2022 2:52 PM Final report signed by Jude Hester MD on 12/29/2022 3:06 PM Narrative 12/29/2022 3:06 PM EST CLINICAL INDICATION: Abdominal pain, acute, nonlocalized, known history of chronic pancreatitis TECHNIQUE: Multiple axial CT images were obtained from lung bases through pubic symphysis following administration of IV contrast, Omnipaque 300, 100 mL. Delayed images of abdomen and kidneys also obtained. Reformatted images in the coronal and sagittal planes were generated from the axial data set to facilitate diagnostic accuracy. Total DLP (Dose-Length Product): 846.04 mGy.cm. Please note: The reported value represents the total of one or more individual components during the CT acquisition on this date and at this time, and as such, the same value may appear in more than one CT report depending on the interpreting/reporting physicians. COMPARISON: Abdominopelvic CT 11/29/[address] 04/16/2016 FINDINGS: Lower Chest: Unchanged well-circumscribed 2.2 cm medial right breast lesion, statistically a fibroadenoma by appearance and size stability dating back to 2016. Unchanged presumed postinfectious/postinflammatory subcentimeter pulmonary nodules within the right middle lobe and lower lobe, for example 3:4, stable dating back to at least July 2021. Solid Abdominal Organs: Grossly unremarkable CT appearance of the pancreas without abnormal ductal dilatation/irregularity or parenchymal calcifications to suggest overt sequela of chronic pancreatitis. No signs of pancreatic parenchymal edema, abnormal peripancreatic fat stranding or fluid collections to suggest acute pancreatitis. Hepatic morphology and parenchymal enhancement is grossly within normal limits. No focal hepatic lesions. Prior cholecystectomy. Nondilated. Tree. Unremarkable pancreas, adrenal glands and kidneys. Borderline splenomegaly measuring 13.2 cm in craniocaudal oblique long axis. No splenic focal lesions. GI Tract/Mesentery/Peritoneum: No evidence of GI tract obstruction, perforation or focal inflammation. Unremarkable appendix. No mesenteric/omental masses or peritoneal fluid collections. Pelvic Viscera: Grossly unremarkable under distended urinary bladder. Slightly asymmetric enlargement of the right ovary/adnexa with right periadnexal free fluid which is new when compared to 5 weeks prior, likely recent right sided ovulation. Lymph Nodes/Vasculature: No suspicious adenopathy by CT size criteria. No large vessel occlusions or aneurysms. Dilated appearing portal and splenic vein, probably representing underlying portal hypertension. Free Fluid:No significant ascites. Small volume pelvic and right adnexal free fluid is within physiologic limits for age. Musculoskeletal and Body Wall:No acute or aggressive findings. Procedure Note Jude Hester MD - 12/29/2022 CLINICAL INDICATION: Abdominal pain, acute, nonlocalized, known history of chronicpancreatitis TECHNIQUE: Multiple axial CT images were obtained from lung bases through pubicsymphysis following administration of IV contrast, Omnipaque 300, 100 mL.Delayed images of abdomen and kidneys also obtained. Reformatted images inthe coronal and sagittal planes were generated from the axial data set tofacilitate diagnostic accuracy. Total DLP (Dose-Length Product): 846.04 mGy.cm. Please note: The reportedvalue represents the total of one or more individual components during theCT acquisition on this date and at this time, and as such, the same valuemay appear in more than one CT report depending on theinterpreting/reporting physicians. COMPARISON: Abdominopelvic CT 11/29/[address] 04/16/2016 FINDINGS: Lower Chest: Unchanged well-circumscribed 2.2 cm medial right breastlesion, statistically a fibroadenoma by appearance and size stabilitydating back to 2016. Unchanged presumed postinfectious/postinflammatorysubcentimeter pulmonary nodules within the right middle lobe and lowerlobe, for example 3:4, stable dating back to at least July 2021. Solid Abdominal Organs: Grossly unremarkable CT appearance of the pancreas without abnormal ductaldilatation/irregularity or parenchymal calcifications to suggest overtsequela of chronic pancreatitis. No signs of pancreatic parenchymal edema,abnormal peripancreatic fat stranding or fluid collections to suggestacute pancreatitis. Hepatic morphology and parenchymal enhancement is grossly within normallimits. No focal hepatic lesions. Prior cholecystectomy. Nondilated. Tree.Unremarkable pancreas, adrenal glands and kidneys. Borderline splenomegalymeasuring 13.2 cm in craniocaudal oblique long axis. No splenic focallesions. GI Tract/Mesentery/Peritoneum: No evidence of GI tract obstruction,perforation or focal inflammation. Unremarkable appendix. Nomesenteric/omental masses or peritoneal fluid collections. Pelvic Viscera: Grossly unremarkable under distended urinary bladder.Slightly asymmetric enlargement of the right ovary/adnexa with rightperiadnexal free fluid which is new when compared to 5 weeks prior, likelyrecent right sided ovulation. Lymph Nodes/Vasculature: No suspicious adenopathy by CT size criteria. Nolarge vessel occlusions or aneurysms. Dilated appearing portal and splenicvein, probably representing underlying portal hypertension. Free Fluid:No significant ascites. Small volume pelvic and right adnexalfree fluid is within physiologic limits for age. Musculoskeletal and Body Wall:No acute or aggressive findings. IMPRESSION: No overt findings of acute or chronic pancreatitis by CT. Please note thatearly mild pancreatitis can be occult on imaging. Prominent appearing right ovary/adnexa with increased fluid within theright adnexa and cul-de-sac and compared to CT 5 weeks prior, probablyrepresenting sequela of recent ovulation. Please correlate with site ofpain to exclude mittelschmerz as the reason for symptomatology. CRITICAL RESULT: No. COMMUNICATION: Per this written report. Drafted by Jude Hester MD on 12/29/2022 2:52 PM Final report signed by Jude Hester MD on 12/29/2022 3:06 PM us Jens Marie MD IMG CT PROCEDURES Final Result * PERIPHERAL IV (SMARTFORM LINK) (12/29/2022 1:03 PM EST) Narrative Asiya Stark RN - 12/29/2022 1:03 PM EST Asiya Stark RN ? 12/29/2022 ??1:03 PM Insert peripheral IV Performed by: Asiya Stark RN Authorized by: Jens Marie MD ?? Hand hygiene: Hand hygiene performed prior to insertion ?? Inserted using aseptic techniques: Yes ?? Preparation: ??Skin prepped with chg Orientation: ??Right and upper Location: ??Arm Catheter placed: ??Peripheral IV Catheter size: ??20g/1.88in Line Technique: ??Ultrasound Guidance Number of attempts: ??1 IV flushes: ??Without difficulty and positive blood return noted and IV luer locked Patient tolerance: ??Patient tolerated the procedure well, age appropriate response and there were no complications IV site covered with: ??Transparent semipermeable dressing Education provided to: ??Patient us Jens Marie MD IV THERAPY ORDERABLES Final Re sult * POCT glucose meter (12/29/2022 12:31 PM EST) POCT Glucose 84 74 - 99 mg/dL 12/29/2022 12:32 PM EST [facility] Comment:Accuracy of a glucos e result obtained from a capillary whole blood specimen relies upon adequate, non-compromised capillary blood flow. If the capillary glucose result is not consistent with the patient's clinical signs and symptoms, glucose testing should be repeated with either an arterial or venous sample on the glucometer or sent to the main labortory for testing. Comment 12/29/2022 12:32 PM EST [facility] Transfer Operator ID Nirmala Cam 023 12:32 PM EST [facility] Device ID [id number] 12/29/2022 12:32 PM EST [facility] Specimen Type POC Capillary 12/29/2022 12:32 PM EST [facility] Blood Capillary blood specimen / Unknown 12/29/2022 12:31 PM EST 12/29/2022 12:32 PM EST us Jens Marie MD LAB POINT OF CARE TE ST DOCKED DEVICE UNSOLICITED RESULTS Final Result Performing Organization Address City/State/[facility] Co fl Phone Number [facility] [address] [place] [address] * PERIPHERAL IV (SMARTFORM LINK) (12/29/2022 10:58 AM EST) Narrative Asiya Stark RN - 12/29/2022 10:58 AM EST Asiya Stark RN ? 12/29/2022 10:58 AM Insert peripheral IV Performed by: Asiya Stark RN Authorized by: Jens Marie MD ?? Hand hygiene: Hand hygiene performed prior to insertion ?? Inserted using aseptic techniques: Yes ?? Preparation: ??Skin prepped with chg Orientation: ??Left and upper Location: ??Arm Catheter placed: ??Peripheral IV Catheter size: ??20g/2.00in Line Technique: ??Ultrasound Guidance Number of attempts: ??1 IV flushes: ??Without difficulty and positive blood return noted and IV luer locked Patient tolerance: ??Age appropriate response, patient tolerated the procedure well and there were no complications IV site covered with: ??Transparent semipermeable dressing Education provided to: ??Patient Comments: ?? I obtained 5 mL of blood with USG PIV insertion and provided to bedside RN for labs. us Jens Marie MD IV THERAPY ORDERABLES Final Re sult * Morphology (12/29/2022 10:49 AM EST) RBC Morphology Slide Reviewed LAB HEMATOLOGY METHOD 12/29/2022 11:22 AM EST [facility] Platelet Estimate Platelet count not valid due to clumping. Appears decreased. LAB HEMATOLOGY METHOD 12/29/2022 11:22 AM EST [facility] Blood Venous blood specimen / Unknown Venipuncture / Unknown 12/29/2022 10:49 AM EST 12/29/2022 10:54 AM EST us Jens Marie MD LAB BLOOD ORDERABLES Final Res ult Performing Organization Address City/State/[facility] Co de Phone Number [facility] [address] [place] [address] * (ABNORMAL) Comprehensive metabolic panel (12/29/2022 10:49 AM EST) Glucose, Plasma 98 74 - 99 mg/dL 12/29/2022 11:30 AM EST [facility] BUN, Plasma 3(L) 7 - 21 mg/dL 12/29/2022 11:30 AM EST [facility] Creatinine, Plasma 0.78 0.60 - 1.10 mg/dL 12/29/2022 11:30 AM EST [facility] BUN/Creatinine Ratio 4 12/29/2022 11:30 AM EST [facility] Sodium, Plasma 139 136 - 145 mmol/L 12/29/2022 11:30 AM EST [facility] Potassium, Plasma 4.2 3.7 - 4.8 mmol/L 12/29/2022 11:30 AM EST [facility] Chloride, Plasma 102 97 - 107 mmol/L 12/29/2022 11:30 AM EST [facility] CO2, Plasma 26 22 - 29 mmol/L 12/29/2022 11:30 AM EST [facility] Anion Gap 11 6 - 16 mmol/L 12/29/2022 11:30 AM EST [facility] Total Calcium, Plasma 9.0 8.9 - 10.2 mg/dL 12/29/2022 11:30 AM EST [facility] Total Protein 6.5 6.3 - 7.9 g/dL 12/29/2022 11:30 AM EST [facility] Albumin, Plasma 4.0 3.5 - 5.2 g/dL 12/29/2022 11:30 AM EST [facility] AST, Plasma 27 10 - 35 U/L 12/29/2022 11:30 AM EST [facility] Comment:Hemolyzed, result ma y be falsely increased. ALT, Plasma 31 10 - 35 U/L 12/29/2022 11:30 AM EST [facility] Alkaline Phosphatase, Plasma 102 35 - 104 U/L 12/29/2022 11:30 AM EST [facility] Total Bilirubin, Plasma 0.3 0.2 - 1.1 mg/dL 12/29/2022 11:30 AM EST [facility] eGFRcr 101.1 mL/min/1.7 3m*2 12/29/2022 11:30 AM EST [facility] Comment:Reported eGFRcr in m L/min/1.73m2 is based the CKD-EPI 2020 equation that does not use a race coefficient. Blood Venous blood specimen / Unknown Venipuncture / Unknown 12/29/2022 10:49 AM EST 12/29/2022 10:54 AM EST us Jens Marie MD LAB BLOOD ORDERABLES Final Res ult Performing Organization Address City/State/[facility] Co de Phone Number [facility] [address] [place] [id number] * (ABNORMAL) CBC W/O Differential (12/29/2022 10:49 AM EST) WBC Count 1.91(L) 3.70 - 10.30 10*3/uL LAB HEMATOLOGY METHOD 12/29/2022 11:22 AM EST [facility] RBC Count 3.61(L) 3.90 - 5.20 10*6/uL LAB HEMATOLOGY METHOD 12/29/2022 11:22 AM EST [facility] HGB 9.7(L) 11.2 - 15.7 g/dL LAB HEMATOLOGY METHOD 12/29/2022 11:22 AM EST [facility] HCT 30.0(L) 34.0 - 45.0 % LAB HEMATOLOGY METHOD 12/29/2022 11:22 AM EST [facility] Platelet Count LAB HEMATOLOGY METHOD 12/29/2022 11:22 AM EST [facility] Comment:Platelet count not v alid due to clumping. Appears decreased. MCV 83 79 - 98 fL LAB HEMATOLOGY METHOD 12/29/2022 11:22 AM EST [facility] MCH 26.9 26.0 - 32.0 pg LAB HEMATOLOGY METHOD 12/29/2022 11:22 AM EST [facility] MCHC 32.3 30.7 - 35.5 g/dL LAB HEMATOLOGY METHOD 12/29/2022 11:22 AM EST [facility] RDW 14.9(H) 11.5 - 14.5 % LAB HEMATOLOGY METHOD 12/29/2022 11:22 AM EST [facility] MPV 11.4 8.8 - 12.5 fL LAB HEMATOLOGY METHOD 12/29/2022 11:22 AM EST [facility] nRBC 0.0 <=0.0 per 100 WBCs LAB HEMATOLOGY METHOD 12/29/2022 11:22 AM EST [facility] Blood Venous blood specimen / Unknown Venipuncture / Unknown 12/29/2022 10:49 AM EST 12/29/2022 10:54 AM EST us Jens Marie MD LAB BLOOD ORDERABLES Final Res ult [facility] [address] [place] [address] * (ABNORMAL) POCT glucose meter (12/29/2022 12:24 AM EST) POCT Glucose 105(H) 74 - 99 mg/dL 12/29/2022 12:26 AM EST [facility] Comment:Accuracy of a glucos e result obtained from a capillary whole blood specimen relies upon adequate, non-compromised capillary blood flow. If the capillary glucose result is not consistent with the patient's clinical signs and symptoms, glucose testing should be repeated with either an arterial or venous sample on the glucometer or sent to the main labortory for testing. Comment 12/29/2022 12:26 AM EST [facility] Transfer Operator ID Jose Amor 12/29/2022 12:26 AM EST [facility] Device ID [id number] 12/29/2022 12:26 AM EST [facility] Specimen Type POC Capillary 12/29/2022 12:26 AM EST [facility] Blood Capillary blood specimen / Unknown 12/29/2022 12:24 AM EST 12/29/2022 12:26 AM EST us Jens Marie MD LAB POINT OF CARE TE ST DOCKED DEVICE UNSOLICITED RESULTS Final Result Performing Organization Address City/[facility]/ZIP Co de Phone Number [facility] [address] [place] [address] * POCT glucose meter (12/28/2022 6:08 PM EST) [facility] POCT Glucose 95 74 - 99 mg/dL 12/28/2022 6:09 PM EST [facility] Comment:Accuracy of a glucos e result obtained from a capillary whole blood specimen relies upon adequate, non-compromised capillary blood flow. If the capillary glucose result is not consistent with the patient's clinical signs and symptoms, glucose testing should be repeated with either an arterial or venous sample on the glucometer or sent to the main labortory for testing. Comment 12/28/2022 6:09 PM EST [facility] Transfer Operator ID Melany Bustamante 12/28/2022 6:09 PM EST [facility] Device ID [id number] 12/28/2022 6:09 PM EST [facility] Specimen Type POC Capillary 12/28/2022 6:09 PM EST [facility] Blood Capillary blood specimen / Unknown 12/28/2022 6:08 PM EST 12/28/2022 6:09 PM EST us Jens Marie MD LAB POINT OF CARE TE ST DOCKED DEVICE UNSOLICITED RESULTS Final Result [facility] [address] [place] [address] * XR Abdomen 1 View (12/28/2022 10:33 AM EST) Anatomical Region Laterality Modality Body Digital Radiogra phy Impressions 12/28/2022 10:57 AM EST Nonspecific bowel gas pattern without overt dilatation at present. Developing ileus is a possibility. CRITICAL RESULT: ?? No. COMMUNICATION: Per this written report. Drafted by Rhonda Maria MD on 12/28/2022 10:56 AM Final report signed by Rhonda Maria MD on 12/28/2022 10:57 AM Narrative 12/28/2022 10:57 AM EST CLINICAL INDICATION: abdominal pain TECHNIQUE: Supine radiograph of the abdomen. COMPARISON: 11/29/2022 CT abdomen and pelvis FINDINGS: Mild to moderate gaseous distention of normal caliber stomach. Multiple gas containing but normal caliber loops of small and large bowel. No pneumatosis or free air. Procedure Note Rhonda Maria MD - 12/28/2022 CLINICAL INDICATION: abdominal pain TECHNIQUE: Supine radiograph of the abdomen. COMPARISON: 11/29/2022 CT abdomen and pelvis FINDINGS: Mild to moderate gaseous distention of normal caliber stomach. Multiplegas containing but normal caliber loops of small and large bowel. Nopneumatosis or free air. IMPRESSION: Nonspecific bowel gas pattern without overt dilatation at present.Developing ileus is a possibility. CRITICAL RESULT: No. COMMUNICATION: Per this written report. Drafted by Rhonda Maria MD on 12/28/2022 10:56 AM Final report signed by Rhonda Maria MD on 12/28/2022 10:57 AM Jens Marie MD IMG XR PROCEDURES Final Result * Magnesium (12/28/2022 3:39 AM EST) Magnesium, Plasma 2.3 1.9 - 2.4 mg/dL 12/28/2022 4:47 AM EST [facility] Blood Venous blood specimen / Unknown Venipuncture / Unknown 12/28/2022 3:39 AM EST 12/28/2022 4:07 AM EST us Usha Alejandre MD LAB BLOOD ORDERABLES Final R esult [facility] [address] [place] [id number] * (ABNORMAL) Basic metabolic panel (12/28/2022 3:39 AM EST) Pathologist [facility] Glucose, Plasma 99 74 - 99 mg/dL 12/28/2022 4:47 AM EST [facility] BUN, Plasma 5(L) 7 - 21 mg/dL 12/28/2022 4:47 AM EST [facility] Creatinine, Plasma 0.59(L) 0.60 - 1.10 mg/dL 12/28/2022 4:47 AM EST [facility] BUN/Creatinine Ratio 8 12/28/2022 4:47 AM EST [facility] Sodium, Plasma 140 136 - 145 mmol/L 12/28/2022 4:47 AM EST [facility] Potassium, Plasma 3.8 3.7 - 4.8 mmol/L 12/28/2022 4:47 AM EST [facility] Chloride, Plasma 106 97 - 107 mmol/L 12/28/2022 4:47 AM EST [facility] CO2, Plasma 25 22 - 29 mmol/L 12/28/2022 4:47 AM EST [facility] Anion Gap 9 6 - 16 mmol/L 12/28/2022 4:47 AM EST [facility] Total Calcium, Plasma 8.8(L) 8.9 - 10.2 mg/dL 12/28/2022 4:47 AM EST [facility] eGFRcr 120.0 mL/min/1.7 3m*2 12/28/2022 4:47 AM EST [facility] Comment:Reported eGFRcr in m L/min/1.73m2 is based the CKD-EPI 2020 equation that does not use a race coefficient. Blood Venous blood specimen / Unknown Venipuncture / Unknown 12/28/2022 3:39 AM EST 12/28/2022 4:07 AM EST Usha Alejandre MD LAB BLOOD ORDERABLES Final R esult [facility] [address] [place] [address] * Urinalysis Microscopic Examination (12/27/2022 7:31 PM EDT) Urine Urine specimen obtained by clean catch procedure / Unknown Non-blood Collection / Unknown 12/27/2022 7:31 PM EDT 12/27/2022 7:33 PM EDT us Kayla Ramos MD LAB URINE ORDERABLES Final Resul t [facility] [address] [place] [id number] * (ABNORMAL) Urinalysis with reflex microscopic (12/27/2022 7:31 PM EDT) Color, Urine Yellow LAB URINALYSIS - AUTOMATED METHOD 12/27/2022 8:22 PM EDT [facility] Clarity, Urine Clear LAB URINALYSIS - AUTOMATED METHOD 12/27/2022 8:22 PM EDT [facility] Spec Pitcher, Urine 1.012 <=1.005 to >=1.030 LAB URINALYSIS - AUTOMATED METHOD 12/27/2022 8:22 PM EDT [facility] pH, Urine 7.0 4.5 to 8 LAB URINALYSIS - AUTOMATED METHOD 12/27/2022 8:22 PM EDT [facility] Protein, Urine Negative Negative mg/dL LAB URINALYSIS - AUTOMATED METHOD 12/27/2022 8:22 PM EDT [facility] Glucose, Urine Negative Negative mg/dL LAB URINALYSIS - AUTOMATED METHOD 12/27/2022 8:22 PM EDT [facility] Ketones, Urine Negative Negative mg/dL LAB URINALYSIS - AUTOMATED METHOD 12/27/2022 8:22 PM EDT [facility] Blood, Urine Negative Negative LAB URINALYSIS - AUTOMATED METHOD 12/27/2022 8:22 PM EDT [facility] Bilirubin, Urine Negative Negative LAB URINALYSIS - AUTOMATED METHOD 12/27/2022 8:22 PM EDT [facility] Urobilinogen, Urine 0.2 0.2 to 1.0 mg/dL LAB URINALYSIS - AUTOMATED METHOD 12/27/2022 8:22 PM EDT [facility] Leukocytes, Urine Trace(A) Negative LAB URINALYSIS - AUTOMATED METHOD 12/27/2022 8:22 PM EDT [facility] Nitrite, Urine Negative Negative LAB URINALYSIS - AUTOMATED METHOD 12/27/2022 8:22 PM EDT [facility] RBC, Urine <1 0 to 3 /HPF 12/27/2022 8:22 PM EDT [facility] Comment:This result was prev iously suppressed from the chart. WBC, Urine 0 - 5 0 to 5 /HPF 12/27/2022 8:22 PM EDT [facility] Comment:This result was prev iously suppressed from the chart. Squamous Epithelial Cells 0 - 2 0 to 5 /HPF 12/27/2022 8:22 PM EDT [facility] Comment:This result was prev iously suppressed from the chart. Hyaline Casts 0 - 2 0 to 5 /LPF 12/27/2022 8:22 PM EDT [facility] Comment:This result was prev iously suppressed from the chart. Bacteria, Urine Present Negative 12/27/2022 8:22 PM EDT [facility] Comment:This result was prev iously suppressed from the chart. Urine Urine specimen obtained by clean catch procedure / Unknown Non-blood Collection / Unknown 12/27/2022 7:31 PM EDT 12/27/2022 7:33 PM EDT Narrative [facility] - 12/27/2022 8:22 PM EDT Performed by manual method us Kayla Ramos MD LAB URINE ORDERABLES Final Resul t Performing Organization Address City/[facility]/ZIP Co de Phone Number [facility] [address] [place] [address] * Lactic acid, venous (12/27/2022 6:07 PM EDT) [facility] Lactate, Venous, Whole Blood 1.2 0.5 - 2.2 mmol/L LAB HEMATOLOGY METHOD 12/27/2022 6:17 PM EDT [facility] Blood Venous blood specimen / Unknown Venipuncture / Unknown 12/27/2022 6:07 PM EDT 12/27/2022 6:12 PM EDT us Kayla Ramos MD LAB BLOOD ORDERABLES Final Resul t Performing Organization Address City/[facility]/ZIP Co de Phone Number [facility] [address] [place] [address] * hCG qualitative (12/27/2022 6:07 PM EDT) Pathologist [facility] Test Negative Negative 12/27/2022 6:40 PM EDT [facility] Blood Venous blood specimen / Unknown Venipuncture / Unknown 12/27/2022 6:07 PM EDT 12/27/2022 6:12 PM EDT Narrative [facility] - 12/27/2022 6:40 PM EDT Reference Range: Males and non- females: Negative. us Kayla Ramos MD LAB BLOOD ORDERABLES Final Resul t Performing Organization Address City/[facility] Co de Phone Number [facility] [address] [place] [address] * (ABNORMAL) Lipase (12/27/2022 6:07 PM EDT) Lipase, Plasma 118(H) 19 - 63 U/L 12/27/2022 6:40 PM EDT [facility] Blood Venous blood specimen / Unknown Venipuncture / Unknown 12/27/2022 6:07 PM EDT 12/27/2022 6:12 PM EDT us Kayla Ramos MD LAB BLOOD ORDERABLES Final Resul t Performing Organization Address [facility] de Phone Number [facility] [address] [place] [address] * Ethyl Alcohol Plasma (12/27/2022 6:07 PM EDT) Ethanol Plasma <10 <10 mg/dL 12/27/2022 6:37 PM EDT [facility] Blood Venous blood specimen / Unknown Venipuncture / Unknown 12/27/2022 6:07 PM EDT 12/27/2022 6:12 PM EDT Narrative [facility] - 12/27/2022 6:37 PM EDT Enzymatic Assay: Performed on [employer]. us Kayla Ramos MD LAB BLOOD ORDERABLES Final Resul t Performing Organization Address City/[facility] Co de Phone Number [facility] [address] [place] [address] * (ABNORMAL) CMP (12/27/2022 6:07 PM EDT) Glucose, Plasma 94 74 - 99 mg/dL 12/27/2022 6:40 PM EDT [facility] BUN, Plasma 6(L) 7 - 21 mg/dL 12/27/2022 6:40 PM EDT [facility] Creatinine, Plasma 0.53(L) 0.60 - 1.10 mg/dL 12/27/2022 6:40 PM EDT [facility] BUN/Creatinine Ratio 11 12/27/2022 6:40 PM EDT [facility] Sodium, Plasma 131(L) 136 - 145 mmol/L 12/27/2022 6:40 PM EDT [facility] Potassium, Plasma 3.2(L) 3.7 - 4.8 mmol/L 12/27/2022 6:40 PM EDT [facility] Chloride, Plasma 99 97 - 107 mmol/L 12/27/2022 6:40 PM EDT [facility] CO2, Plasma 23 22 - 29 mmol/L 12/27/2022 6:40 PM EDT [facility] Anion Gap 9 6 - 16 mmol/L 12/27/2022 6:40 PM EDT [facility] Total Calcium, Plasma 9.0 8.9 - 10.2 mg/dL 12/27/2022 6:40 PM EDT [facility] Total Protein 6.6 6.3 - 7.9 g/dL 12/27/2022 6:40 PM EDT [facility] Albumin, Plasma 4.0 3.5 - 5.2 g/dL 12/27/2022 6:40 PM EDT [facility] AST, Plasma 21 10 - 35 U/L 12/27/2022 6:40 PM EDT [facility] Comment:Hemolyzed, result ma y be falsely increased. ALT, Plasma 36(H) 10 - 35 U/L 12/27/2022 6:40 PM EDT [facility] Alkaline Phosphatase, Plasma 97 35 - 104 U/L 12/27/2022 6:40 PM EDT [facility] Total Bilirubin, Plasma 0.4 0.2 - 1.1 mg/dL 12/27/2022 6:40 PM EDT [facility] eGFRcr 123.1 mL/min/1.7 3m*2 12/27/2022 6:40 PM EDT [facility] Comment:Reported eGFRcr in m L/min/1.73m2 is based the CKD-EPI 2020 equation that does not use a race coefficient. Blood Venous blood specimen / Unknown Venipuncture / Unknown 12/27/2022 6:07 PM EDT 12/27/2022 6:12 PM EDT us Kayla Ramos MD LAB BLOOD ORDERABLES Final Resul t [facility] [address] [place] [address] * (ABNORMAL) CBC w/diff (12/27/2022 6:07 PM EDT) [facility] WBC Count 7.47 3.70 - 10.30 10*3/uL LAB HEMATOLOGY METHOD 12/27/2022 6:16 PM EDT [facility] RBC Count 4.14 3.90 - 5.20 10*6/uL LAB HEMATOLOGY METHOD 12/27/2022 6:16 PM EDT [facility] HGB 11.1(L) 11.2 - 15.7 g/dL LAB HEMATOLOGY METHOD 12/27/2022 6:16 PM EDT [facility] HCT 33.4(L) 34.0 - 45.0 % LAB HEMATOLOGY METHOD 12/27/2022 6:16 PM EDT [facility] Platelet Count 240 155 - 369 10*3/uL LAB HEMATOLOGY METHOD 12/27/2022 6:16 PM EDT [facility] MCV 81 79 - 98 fL LAB HEMATOLOGY METHOD 12/27/2022 6:16 PM EDT [facility] MCH 26.8 26.0 - 32.0 pg LAB HEMATOLOGY METHOD 12/27/2022 6:16 PM EDT [facility] MCHC 33.2 30.7 - 35.5 g/dL LAB HEMATOLOGY METHOD 12/27/2022 6:16 PM EDT [facility] RDW 15.5(H) 11.5 - 14.5 % LAB HEMATOLOGY METHOD 12/27/2022 6:16 PM EDT [facility] MPV 10.0 8.8 - 12.5 fL LAB HEMATOLOGY METHOD 12/27/2022 6:16 PM EDT [facility] nRBC 0.0 <=0.0 per 100 WBCs LAB HEMATOLOGY METHOD 12/27/2022 6:16 PM EDT [facility] Differential Type Automated LAB HEMATOLOGY METHOD 12/27/2022 6:16 PM EDT [facility] Neutrophils % 72.0 % LAB HEMATOLOGY METHOD 12/27/2022 6:16 PM EDT [facility] Lymphocytes % 22.0 % LAB HEMATOLOGY METHOD 12/27/2022 6:16 PM EDT [facility] Monocytes % 4.0 % LAB HEMATOLOGY METHOD 12/27/2022 6:16 PM EDT [facility] Eosinophils % 0.0 % LAB HEMATOLOGY METHOD 12/27/2022 6:16 PM EDT [facility] Basophils % 1.0 % LAB HEMATOLOGY METHOD 12/27/2022 6:16 PM EDT [facility] Immature Granulocytes % 1.0 % LAB HEMATOLOGY METHOD 12/27/2022 6:16 PM EDT [facility] Neutrophils Absolute 5.39 1.60 - 6.10 10*3/uL LAB HEMATOLOGY METHOD 12/27/2022 6:16 PM EDT [facility] Lymphocytes Absolute 1.65 1.20 - 3.90 10*3/uL LAB HEMATOLOGY METHOD 12/27/2022 6:16 PM EDT [facility] Monocytes Absolute 0.31 0.30 - 0.90 10*3/uL LAB HEMATOLOGY METHOD 12/27/2022 6:16 PM EDT [facility] Eosinophils Absolute 0.03 0.00 - 0.50 10*3/uL LAB HEMATOLOGY METHOD 12/27/2022 6:16 PM EDT [facility] Basophils Absolute 0.05 0.00 - 0.10 10*3/uL LAB HEMATOLOGY METHOD 12/27/2022 6:16 PM EDT [facility] Immature Granulocytes Absolute 0.04 0.00 - 0.06 10*3/uL LAB HEMATOLOGY METHOD 12/27/2022 6:16 PM EDT [facility] Blood Venous blood specimen / Unknown Venipuncture / Unknown 12/27/2022 6:07 PM EDT 12/27/2022 6:12 PM EDT Narrative [facility] - 12/27/2022 6:16 PM EDT Therapeutic decision making should be based on absolute values, rather than percentages. us Kayla Ramos MD LAB BLOOD ORDERABLES Final Resul t [facility] [address] [place] [address] documented in this encounter Visit Diagnoses Diagnosis Acute on chronic pancreatitis (CMS/HCC)- Primary Chronic pancreatitis, unspecified pancreatitis type (CMS/HCC) documented in this encounter Administered Medications Inactive Administered Medications - up to 3 most recent administrations Medication Order MAR Action Action Date Dose Rate Site acetaminophen (Tylenol) tablet 1,000 mg 1,000 mg, Oral, Every 6 hours PRN, Starting on 12/27/22 at 2211, Until 12/29/22 at 0927, Routine, mild pain, headaches, fever, moderate pain Given 12/27/2022 11:28 PM EDT 1,000 mg acetaminophen (Tylenol) tablet 1,000 mg 1,000 mg, Oral, 3 times daily, First dose (after last modification) on 12/29/22 at 0945, Until Discontinued, Routine Given 01/01/2023 9:18 AM EST 1,000 mg Given 12/31/2022 9:21 PM EST 1,000 mg Given 12/31/2022 4:45 PM EST 1,000 mg cholecalciferol (Vitamin D-3) tablet 2,000 Units 2,000 Units, Oral, Daily, First dose on 12/27/22 at 2230, Until Discontinued, Routine Given 01/01/2023 9:18 AM EST 2,000 Units Given 12/31/2022 8:32 AM EST 2,000 Units Given 12/30/2022 8:07 AM EST 2,000 Units cyanocobalamin (Vitamin B-12) tablet 1,000 mcg 1,000 mcg, Oral, Daily, First dose on 12/27/22 at 2230, Until Discontinued, Routine Given 01/01/2023 9:18 AM EST 1,000 mcg Given 12/31/2022 8:33 AM EST 1,000 mcg Given 12/30/2022 8:07 AM EST 1,000 mcg DULoxetine (Cymbalta) DR capsule 30 mg 30 mg, Oral, Daily, First dose on 12/27/22 at 2230, Until Discontinued, Routine Given 12/28/2022 8:06 AM EST 30 mg Given 12/27/2022 11:28 PM EDT 30 mg DULoxetine (Cymbalta) DR capsule 30 mg 30 mg, Oral, Once, 1 dose, On 12/28/22 at 1345, Routine Given 12/28/2022 2:14 PM EST 30 mg DULoxetine (Cymbalta) DR capsule 60 mg 60 mg, Oral, Daily, First dose (after last modification) on 12/29/22 at 0900, Until Discontinued, Routine Given 01/01/2023 9:18 AM EST 60 mg Given 12/31/2022 8:32 AM EST 60 mg Given 12/30/2022 8:07 AM EST 60 mg enoxaparin (Lovenox) syringe 40 mg 40 mg, Subcutaneous, Daily, First dose on 12/28/22 at 0900, Until Discontinued, Routine Given 12/31/2022 8:32 AM EST 40 mg Left Lower Abdomen Given 12/30/2022 8:07 AM EST 40 mg Ri ght Lower Abdomen Given 12/28/2022 8:06 AM EST 40 mg Le ft Lower Abdomen gi cocktail oral solution 30 mL 30 mL, Oral, Once, 1 dose, On 12/27/22 at 1735, STAT Given 12/27/2022 6:08 PM EDT 30 mL HYDROmorphone (Dilaudid) injection 0.25 mg 0.25 mg, Intravenous, Every 4 hours PRN, Starting on 12/27/22 at 2218, Until 12/28/22 at 0747, Routine, severe breakthrough pain, stop after 48h Given 12/28/2022 7:19 AM EST 0.25 mg Given 12/28/2022 3:18 AM EST 0.25 mg Given 12/28/2022 12:57 AM EDT 0.25 mg HYDROmorphone (Dilaudid) injection 0.25 mg 0.25 mg, Intravenous, Once, 1 dose, On 12/28/22 at 0815, Routine Given 12/28/2022 8:21 AM EST 0.25 mg HYDROmorphone (Dilaudid) injection 0.5 mg 0.5 mg, Intravenous, Every 8 hours PRN, Starting on 12/28/22 at 1356, Until Tu12/30/22 at 1219, Routine, severe breakthrough pain, stop after 48h Given 12/30/2022 9:37 AM EST 0.5 mg Given 12/30/2022 1:25 AM EST 0.5 mg Given 12/29/2022 5:14 PM EST 0.5 mg iohexol (OMNIPaque) 300 MG/ML injection 100 mL 100 mL, Intravenous, Once in imaging, 1 dose, Starting on Thu12/29/22 at 1235, Until Thu12/29/22 at 1410, Routine, Imaging Protocol Orders Given 12/29/2022 2:10 PM EST 100 mL iohexol (OMNIPaque) 9 MG/ML oral contrast 500 mL 500 mL, Oral, Once in imaging, 1 dose, Starting on Thu12/29/22 at 1235, Until Thu12/29/22 at 1330, Routine, Imaging Protocol Orders Given 12/29/2022 1:30 PM EST 500 mL ketorolac (Toradol) injection 15 mg 15 mg, Intravenous, Every 6 hours PRN, Starting on Thu12/30/22 at 1540, Until Annabel 01/01/23 at 1928, Routine, severe pain Given 12/31/2022 2:05 PM EST 15 mg Given 12/31/2022 7:07 AM EST 15 mg Given 12/31/2022 12:43 AM EST 15 mg lactated Ringer's infusion 1,000 mL 1,000 mL, Intravenous, Once, 1 dose, On 12/27/22 at 1735, STAT New Bag 12/27/2022 6:15 PM EDT 1,000 mL lactated Ringer's infusion 100 mL/hr, Intravenous, Continuous, Starting on 12/27/22 at 2230, Until Thu12/30/22 at 0104, Routine New Bag 12/28/2022 1:05 AM EDT 100 mL/hr 100 mL /hr LORazepam (Ativan) tablet 1 mg 1 mg, Oral, 2 times daily PRN, Starting on 12/28/22 at 0750, Until Annabel 01/01/23 at 1928, Routine, anxiety Given 01/01/2023 9:32 AM EST 1 mg Given 12/31/2022 9:21 PM EST 1 mg Given 12/31/2022 8:32 AM EST 1 mg magnesium sulfate IVPB 2 g 2 g, Intravenous, Once, 1 dose, On Thu12/31/22 at 0900, Routine New Bag 12/31/2022 9:17 AM EST 2 g 25 mL/ hr melatonin tablet 3 mg 3 mg, Oral, Nightly PRN, Starting on 12/27/22 at 2212, Until Annabel 01/01/23 at 1928, sleep Given 12/31/2022 9:21 PM EST 3 mg Given 12/30/2022 8:46 PM EST 3 mg Given 12/29/2022 8:15 PM EST 3 mg morphine PF 4 mg 4 mg, Intravenous, Once, 1 dose, On 12/27/22 at 1950, STAT Given 12/27/2022 7:53 PM EDT 4 mg morphine PF 4 mg 4 mg, Intravenous, Once, 1 dose, On 12/27/22 at 2120, STAT Given 12/27/2022 9:56 PM EDT 4 mg nicotine (Nicoderm CQ) 21 MG/24HR patch 1 patch 1 patch, Transdermal, Daily, First dose on 12/28/22 at 0900, Until Discontinued, Routine ondansetron (Zofran) injection 4 mg 4 mg, Intravenous, Once, 1 dose, On 12/27/22 at 1735, STAT Given 12/27/2022 6:08 PM EDT 4 mg ondansetron (Zofran) injection 4 mg 4 mg, Intravenous, Every 6 hours PRN, Starting on 12/27/22 at 2218, Until 12/29/22 at 0954, Routine, nausea, vomiting Given 12/29/2022 8:05 AM EST 4 mg Given 12/28/2022 9:14 PM EST 4 mg Given 12/28/2022 12:31 PM EST 4 mg ondansetron (Zofran) injection 4 mg 4 mg, Intravenous, Every 6 hours PRN, Starting on 12/29/22 at 0954, Until Annabel 01/01/23 at 1928, Routine, vomiting Given 01/01/2023 9:20 AM EST 4 mg Given 12/31/2022 3:34 AM EST 4 mg Given 12/30/2022 9:37 AM EST 4 mg ondansetron ODT (Zofran-ODT) disintegrating tablet 4 mg 4 mg, Oral, Every 8 hours PRN, Starting on 12/27/22 at 2211, Until 12/28/22 at 0759, Routine, nausea, vomiting Given 12/27/2022 11:27 PM EDT 4 mg ondansetron ODT (Zofran-ODT) disintegrating tablet 4 mg 4 mg, Oral, Every 6 hours PRN, Starting on 12/29/22 at 0954, Until Annabel 01/01/23 at 1928, Routine, nausea Given 12/29/2022 5:14 PM EST 4 mg oxyCODONE (Roxicodone) immediate release tablet 10 mg 10 mg, Oral, Once, 1 dose, On 12/27/22 at 1820, STAT Given 12/27/2022 7:02 PM EDT 10 mg oxyCODONE (Roxicodone) immediate release tablet 10 mg 10 mg, Oral, Every 6 hours PRN, Starting on 12/28/22 at 0103, Until 12/28/22 at 1356, Routine, moderate pain, severe pain Given 12/28/2022 8:04 AM EST 10 mg Given 12/28/2022 2:23 AM EST 10 mg oxyCODONE (Roxicodone) immediate release tablet 10 mg 10 mg, Oral, Every 4 hours PRN, Starting on 12/28/22 at 1400, Until Thu12/30/22 at 1219, Routine, moderate pain, severe pain Given 12/30/2022 8:10 AM EST 10 mg Given 12/30/2022 3:31 AM EST 10 mg Given 12/30/2022 12:13 AM EST 10 mg oxyCODONE (Roxicodone) immediate release tablet 15 mg 15 mg, Oral, Every 4 hours PRN, Starting on 12/30/22 at 1218, Until Annabel 01/01/23 at 1928, Routine, moderate pain, severe pain Given 01/01/2023 1:22 PM EST 15 mg Given 01/01/2023 9:20 AM EST 15 mg Given 01/01/2023 5:04 AM EST 15 mg oxyCODONE (Roxicodone) immediate release tablet 5 mg 5 mg, Oral, Every 6 hours PRN, Starting on 12/27/22 at 2218, Until 12/28/22 at 0103, Routine, moderate pain, severe pain Given 12/27/2022 11:28 PM EDT 5 mg pancrelipase (Creon) 6000 unit capsule 1 capsule, Oral, 3 times daily with meals, First dose on 12/28/22 at 0830, Until Discontinued, Routine Given 01/01/2023 11:44 AM EST 1 capsule Given 01/01/2023 9:18 AM EST 1 capsule Given 12/31/2022 4:45 PM EST 1 capsule pantoprazole (Protonix) EC tablet 40 mg 40 mg, Oral, 2 times daily, First dose on Thu12/27/22 at 2230, Until Discontinued, Routine Given 12/29/2022 8:06 AM EST 40 mg Given 12/28/2022 9:15 PM EST 40 mg Given 12/28/2022 8:05 AM EST 40 mg pantoprazole (Protonix) EC tablet 40 mg 40 mg, Oral, Daily, First dose (after last modification) on Thu12/30/22 at 0900, Until Discontinued, Routine Given 01/01/2023 9:18 AM EST 40 mg Given 12/31/2022 8:32 AM EST 40 mg Given 12/30/2022 8:07 AM EST 40 mg polyethylene glycol (Miralax) packet 17 g 17 g, Oral, Daily, First dose (after last modification) on Thu12/30/22 at 1245, Until Discontinued, Routine Given 12/31/2022 8:32 AM EST 17 g potassium chloride (Klor-Con) packet 40 mEq 40 mEq, Oral, Every 2 hours, 2 doses, First dose on Thu12/31/22 at 0900, Last dose on Thu12/31/22 at 1100, Routine Given 12/31/2022 11:26 AM EST 40 mEq Given 12/31/2022 9:17 AM EST 40 mEq potassium chloride IVPB 10 mEq 10 mEq, Intravenous, Every 1 hour, 2 doses, First dose on Thu12/27/22 at 2145, Last dose on Thu12/27/22 at 2245, RoutineIndications:Hypokalemia New Bag 12/27/2022 10:22 PM EDT 10 mEq 100 mL/hr pregabalin (Lyrica) capsule 300 mg 300 mg, Oral, 2 times daily, First dose on Thu12/27/22 at 2230, Until Discontinued Given 01/01/2023 9:18 AM EST 300 mg Given 12/31/2022 9:21 PM EST 300 mg Given 12/31/2022 8:32 AM EST 300 mg prochlorperazine (Compazine) injection 5 mg 5 mg, Intravenous, Once, 1 dose, On 12/27/23 at 1950, STAT Given 12/27/2022 7:53 PM EDT 5 mg prochlorperazine (Compazine) injection 5 mg 5 mg, Intravenous, Once, 1 dose, On 12/27/22 at 2120, STAT Given 12/27/2022 9:56 PM EDT 5 mg sodium chloride 0.9 % flush 10 mL 10 mL, Intravenous, Every 8 hours PRN, Starting on 12/27/22 at 2212, Until Annabel 01/01/23 at 1928, Routine, line care sodium chloride 0.9 % flush 10 mL 10 mL, Intravenous, As needed, Starting on 12/27/22 at 2212, Until Annabel 01/01/23 at 1928, Routine, line care sucralfate (Carafate) 1 GM/10ML suspension 1 g 1 g, Oral, Every 6 hours scheduled, First dose on 12/28/22 at 0000, Until Discontinued, Routine Given 01/01/2023 11:44 AM EST 1 g Given 01/01/2023 5:04 AM EST 1 g Given 12/31/2022 11:41 PM EST 1 g documented in this encounter Active and Recently Administered Medications Times are shown in EST. Scheduled Medication Order 12/30/2022 12/31/2022 01/01/2023 acetaminophen (Tylenol) tablet 1,000 mg 1,000 mg, Oral, 3 times daily, First dose (after last modification) on 12/29/22 at 0945, Until Discontinued, Routine 0807 (Given - Provider: Ebenezer Lagos LPN)1643 (Given - Provider: Ebenezer Lagos LPN)2046 (Given - Provider: Leta Sinclair) 0832 (Given - Provider: Ebenezer Lagos LPN)1645 (Given - Provider: Ebenezer Lagos LPN)2121 (Given - Provider: Tiffany Duron RN) 0918 (Given - Provider: Jose Arango)1600 (Canceled Entry - Provider: Automatic Discharge Provider - Comment: Automatically canceled at discontinue of medication order) cholecalciferol (Vitamin D-3) tablet 2,000 Units 2,000 Units, Oral, Daily, First dose on 12/27/22 at 2230, Until Discontinued, Routine 0807 (Given - Provider: Ebenezer Lagos LPN) 0832 (Given - Provider: Ebenezer Lagos LPN) 0918 (Given - Provider: Jose Arango) cyanocobalamin (Vitamin B-12) tablet 1,000 mcg 1,000 mcg, Oral, Daily, First dose on Thu12/27/22 at 2230, Until Discontinued, Routine 0807 (Given - Provider: Ebenezer Lagos LPN) 0833 (Given - Provider: Ebenezer Lagos LPN) 0918 (Given - Provider: Jose Arango) DULoxetine (Cymbalta) DR capsule 60 mg 60 mg, Oral, Daily, First dose (after last modification) on 12/29/22 at 0900, Until Discontinued, Routine 0807 (Given - Provider: Ebenezer Lagos LPN) 0832 (Given - Provider: Ebenezer Lagos LPN) 0918 (Given - Provider: Jose Arango) enoxaparin (Lovenox) syringe 40 mg 40 mg, Subcutaneous, Daily, First dose on 12/28/22 at 0900, Until Discontinued, Routine 0807 (Given - Provider: Ebenezer Lagos LPN) 0832 (Given - Provider: Ebenezer Lagos LPN) 0936 (Not Given - Provider: Jose Arango - Reason: Patient/family refused) magnesium sulfate IVPB 2 g (COMPLETED) 2 g, Intravenous, Once, 1 dose, On Thu12/31/22 at 0900, Routine 0917 (New Bag - Provider: Ebenezer Lagos LPN) nicotine (Nicoderm CQ) 21 MG/24HR patch 1 patch 1 patch, Transdermal, Daily, First dose on 12/28/22 at 0900, Until Discontinued, Routine 0818 (Not Given - Provider: Ebenezer Lagos LPN - Reason: Patient/family refused) 0833 (Not Given - Provider: Ebenezer Lagos LPN - Reason: Patient/family refused) 0918 (Not Given - Provider: Jose Arango - Reason: Patient/family refused) pancrelipase (Creon) 6000 unit capsule 1 capsule, Oral, 3 times daily with meals, First dose on 12/28/22 at 0830, Until Discontinued, Routine 0807 (Given - Provider: Ebenezer Lagos LPN)1330 (Not Given - Provider: Ebenezer Lagos LPN - Reason: Patient/family refused)1705 (Given - Provider: Ebenezre Lagos LPN) 0832 (Given - Provider: Ebenezer Lagos LPN)1250 (Given - Provider: Ebenezer Lagos LPN)1645 (Given - Provider: Ebenezer Lagos LPN) 0918 (Given - Provider: Jose Arango)1144 (Given - Provider: Jose Arango)1730 (Canceled Entry - Provider: Automatic Discharge Provider - Comment: Automatically canceled at discontinue of medication order) pantoprazole (Protonix) EC tablet 40 mg 40 mg, Oral, Daily, First dose (after last modification) on Thu12/30/22 at 0900, Until Discontinued, Routine 0807 (Given - Provider: Ebenezer Lagos LPN) 0832 (Given - Provider: Ebenezer Lagos LPN) 0918 (Given - Provider: Jose Arango) polyethylene glycol (Miralax) packet 17 g 17 g, Oral, Daily, First dose (after last modification) on Thu12/30/22 at 1245, Until Discontinued, Routine 1330 (Not Given - Provider: Ebenezer Lagos LPN - Reason: Medication not available) 0832 (Given - Provider: Ebenezer Lagos LPN) 0936 (Not Given - Provider: Jose Arango - Reason: Patient/family refused) potassium chloride (Klor-Con) packet 40 mEq (COMPLETED) 40 mEq, Oral, Every 2 hours, 2 doses, First dose on Thu12/31/22 at 0900, Last dose on Thu12/31/22 at 1100, Routine 0917 (Given - Provider: Ebenezer Lagos LPN)1126 (Given - Provider: Ebenezer Lagos LPN) pregabalin (Lyrica) capsule 300 mg 300 mg, Oral, 2 times daily, First dose on Thu12/27/22 at 2230, Until Discontinued 0807 (Given - Provider: Ebenezer Lagos LPN)2046 (Given - Provider: Leta Sinclair) 0832 (Given - Provider: Ebenezer Lagos LPN)212 (Given - Provider: Tiffany Duron RN) 0918 (Given - Provider: Jose Arango) sucralfate (Carafate) 1 GM/10ML suspension 1 g 1 g, Oral, Every 6 hours scheduled, First dose on 12/28/22 at 0000, Until Discontinued, Routine 0124 (Given - Provider: Easton Krishnamurthy RN - Comment: had PO pain med)0606 (Given - Provider: Easton Krishnamurthy RN)1331 (Not Given - Provider: Ebenezer Lagos LPN - Reason: Medication not available)1705 (Given - Provider: Ebenezer Lagos LPN) 0043 (Given - Provider: Easton Krishnamurthy RN)0707 (Given - Provider: Easton Krishnamurthy RN)1250 (Given - Provider: Ebenezer Lagos LPN)1710 (Given - Provider: Ebenezer Lagos LPN)2341 (Given - Provider: Tiffany Duron RN) 0504 (Given - Provider: Tiffany Duron RN)1144 (Given - Provider: Jose Arango)1800 (Canceled Entry - Provider: Automatic Discharge Provider - Comment: Automatically canceled at discontinue of medication order) PRN Medication Order 12/30/2022 12/31/2022 01/01/2023 albuterol (2.5 MG/3ML) 0.083% nebulizer solution 3 mL 3 mL, Nebulization, Every 6 hours PRN, Starting on 12/27/22 at 2217, Until Annabel 01/01/23 at 1928, Routine, wheezing, shortness of breath HYDROmorphone (Dilaudid) injection 0.5 mg (CANCELED) 0.5 mg, Intravenous, Every 8 hours PRN, Starting on 12/28/22 at 1356, Until 12/30/22 at 1219, Routine, severe breakthrough pain, stop after 48h 0125 (Given - Provider: Easton Krishnamurthy RN)0937 (Given - Provider: Maria Fernanda Lowry RN) ketorolac (Toradol) injection 15 mg 15 mg, Intravenous, Every 6 hours PRN, Starting on 12/30/22 at 1540, Until Annabel 01/01/23 at 1928, Routine, severe pain 1705 (Given - Provider: Ebenezer Lagos LPN) 0043 (Given - Provider: Easton Krishnamurthy RN)0707 (Given - Provider: Easton Krishnamurthy RN)1405 (Given - Provider: Ebenezer Lagos LPN) 0029 [facility] Provider: Tiffany Duron, CHANDNI) LORazepam (Ativan) tablet 1 mg 1 mg, Oral, 2 times daily PRN, Starting on 12/28/22 at 0750, Until Thu01/01/23 at 1928, Routine, anxiety 0814 (Given - Provider: Ebenezer Lagos LPN)205 (Given - Provider: Leta Sinclair) 0832 (Given - Provider: Ebenezer Lagos LPN)212 (Given - Provider: Tiffany Duron RN) 0932 (Given - Provider: Jose Arango) melatonin tablet 3 mg 3 mg, Oral, Nightly PRN, Starting on 12/27/22 at 2212, Until Annabel 01/01/23 at 1928, sleep 2046 (Given - Provider: Leta Sinclair) 212 (Given - Provider: Tiffany Duron, CHANDNI) ondansetron (Zofran) injection 4 mg 4 mg, Intravenous, Every 6 hours PRN, Starting on 12/29/22 at 0954, Until Annabel 01/01/23 at 1928, Routine, vomiting 0125 (Given - Provider: Easton Krishnamurthy RN)0937 (Given - Provider: Maria Fernanda Lowry RN) 0334 (Given - Provider: Easton Krishnamurthy RN) 0920 (Given - Provider: Jose Arango) ondansetron ODT (Zofran-ODT) disintegrating tablet 4 mg 4 mg, Oral, Every 6 hours PRN, Starting on 12/29/22 at 0954, Until Annabel 01/01/23 at 1928, Routine, nausea 1005 (Not Given - Provider: Ebenezer Lagos LPN - Reason: Patient/family refused) oxyCODONE (Roxicodone) immediate release tablet 10 mg (CANCELED) 10 mg, Oral, Every 4 hours PRN, Starting on 12/28/22 at 1400, Until Thu12/30/22 at 1219, Routine, moderate pain, severe pain 0013 (Given - Provider: Easton Krishnamurthy RN)0331 (Given - Provider: Easton Krishnamurthy RN)0810 (Given - Provider: Ebenezer Lagos LPN) oxyCODONE (Roxicodone) immediate release tablet 15 mg 15 mg, Oral, Every 4 hours PRN, Starting on 12/30/22 at 1218, Until Annabel 01/01/23 at 1928, Routine, moderate pain, severe pain 1345 (Given - Provider: Ebenezer Lagos LPN)1801 (Given - Provider: Ebenezer Lagos LPN)2330 (Given - Provider: Easton Krishnamurthy RN) 0341 (Given - Provider: Easton Krishnamurthy RN)0832 (Given - Provider: Ebenezer Lagos LPN)1250 (Given - Provider: Ebenezer Lagos LPN)1645 (Given - Provider: Ebenezer Lagos LPN)2121 (Given - Provider: Tiffany Duron RN) 0105 (Given - Provider: Tiffany Duron RN)0504 (Given - Provider: Tiffany Duron RN)0920 (Given - Provider: Jose Arango)1322 (Given - Provider: Jose Arango) sodium chloride 0.9 % flush 10 mL(Linked Group 1) 10 mL, Intravenous, Every 8 hours PRN, Starting on 12/27/22 at 2212, Until Annabel 01/01/23 at 1928, Routine, line care sodium chloride 0.9 % flush 10 mL(Linked Group 1) 10 mL, Intravenous, As needed, Starting on 12/27/22 at 2212, Until Annabel 01/01/23 at 1928, Routine, line care Linked Groups Order Group 1: Insert peripheral IV (COMPLETED) Once, On 12/27/22 at 2213, For 1 occurrence And Saline lock IV (COMPLETED) Once, On 12/27/22 at 2213, For 1 occurrence And sodium chloride 0.9 % flush 10 mLJump to med 10 mL, Intravenous, Every 8 hours PRN, Starting on 12/27/22 at 2212, Until Annabel 01/01/23 at 1928, Routine, line care And sodium chloride 0.9 % flush 10 mLJump to med 10 mL, Intravenous, As needed, Starting on 12/27/22 at 2212, Until Annabel 01/01/23 at 1928, Routine, line care documented in this encounter Additional Health Concerns Assessment Noted Time A fall risk assessment has been complete d for the patient 11/21/2020 2:30 PM EDT A Body Mass Index follow-up plan has been documented for the patient 01/01/2023 1:35 PM EST documented as of this encounter Care Teams Bingo Clerk Relationship Specialty Start Date End Date Elmo Escobar MD PCP - General 10/18/20 01/05/23 documented as of this encounter
--- OUTSIDE RECORDS SUMMARY | 2024-02-03 15:16 | XMS_ITS | Encounter Summary ---
Author Organization [facility] Address [address] [place] [address] Care Team Providers Care Ecd Name Role Phone LjRafiq russell Primary Care Provider [phone] Encounter Details Date Type Department Care Team (Latest Contact Info) Description 02/18/2023 Travel Social History Tobacco Use Types Packs/Day [...] slept in a alf (including now)? No 12/29/2022 CAGE ASSESSMENT Answer Date Recorded Due to the following: Medical status 02/18/2023 Maximum number of drinks you had on a given occasion in the last month? 0 drinks 02/18/2023 How many alcoholic Beverages do you typically drink in a week? 0 - 7 per week 02/18/2023 Have you ever felt you should CUT down on your d rinking? 0 02/18/2023 Have you been ANNOYED by peo ple criticizing your drinking? 0 02/18/2023 Have you felt GUILTY about your drinking? 0 02/18/2023 Have you had a drink first t caleb in the morning (EYE-QUALITY ASSURANCE QA LAB TECHNICIAN) to steady your nerves or to get rid of a hangover? 0 02/18/2023 CAGE Questionnaire Score 0 023 Utilities Answer Date Recorded In the past 12 months has th e [employer], gas, oil, or water company threatened to [...] documented as of this encounter Care Teams Ecd Relationship Specialty Start Date End Date Rafiq Song DO [address] [place] [address] PCP - General 01/06/23 03/16/23 documented as of this encounter
--- OUTSIDE RECORDS SUMMARY | 2024-02-03 15:17 | XMS_ITS | Encounter Summary ---
Author Organization Healthcare Address [address] [place] [address] Care Team Providers Care Criminal Intelligence Analyst Name Role Phone Elmo Escobar MD Primary Care Provider [phone] Encounter Details Date Type Department Care Team (Latest Contact Info) Description 12/24/2022 Travel Social History Tobacco Use Types Packs/Day Years Used Date Smoking Tobacco: Every Day Cigarettes 1 15 Smokeless Tobacco: Never Alcohol Use Standard Drinks/Week Comments Not Currently 0 (1 standard drink = 0.6 oz pur e alcohol) PHQ-2 Answer Date Recorded Patient Health Questionnaire-2 Score 2 11/21/2020 CAGE ASSESSMENT Answer Date Recorded Cage unable to access Not on file 11/19/2022 Cage max number of drinks Not on file 2022 Cage Beverages a week Not on file 11/19/2022 Have you ever felt you should CUT down on your d rinking? 0 11/19/2022 Have you been ANNOYED by people criticizing your drinking? 0 11/19/2022 Have you felt GUILTY about your drinking? 0 11/19/2022 Have you had a drink first t caleb in the morning (EYE-HEAVY EQUIPMENT SERVICE MANAGER) to steady your nerves or to get rid of a hangover? 0 11/19/2022 CAGE Questionnaire Score 0 023 Comments No Sex and Gender Information Value [...] for the patient 11/21/2020 2:30 PM EDT documented as of this encounter Care Teams Criminal Intelligence Analyst Relationship Specialty Start Date End Date Elmo Escobar MD PCP - General 10/18/20 01/05/23 documented as of this encounter
--- OUTSIDE RECORDS SUMMARY | 2024-02-03 15:17 | XMS_ITS | Encounter Summary ---
Author Organization Healthcare Address [address] [place] [address] Care Team Providers Care Equipment Coordinator Name Role Phone Elmo Escobar MD Primary Care Provider [phone] Encounter Details Date Type Department Care Team (Latest Contact Info) Description 11/25/2022 Travel Social History Tobacco Use Types Packs/Day [...] drink first t caleb in the morning (EYE-MIXING MACHINE FEEDER) to steady your nerves or to get [...] documented as of this encounter Care Teams Equipment Coordinator Relationship Specialty Start Date End Date Elmo Escobar MD PCP - General 10/18/20 01/05/23 documented as of this encounter
--- OUTSIDE RECORDS SUMMARY | 2024-02-03 15:17 | XMS_ITS | Encounter Summary ---
Author Organization [facility] Address [address] [place] [address] Care Team Providers Care Risk Consulting Treasury Director Name Role Phone Elmo Escobar MD Primary Care Provider [phone] Encounter Details Date Type Department Care Team (Latest Contact Info) Description 12/28/2022 Travel Social History Tobacco Use Types Packs/Day [...] slept in a usp (including now)? No 12/29/2022 CAGE ASSESSMENT Answer [...] drink first t caleb in the morning (EYE-ASSET PROTECTION AGENT) to steady your nerves or to get rid of a hangover? 0 12/28/2022 CAGE Questionnaire Score 1 023 Utilities Answer Date Recorded In the past 12 months has th e [employer], gas, oil, or water company threatened to [...] documented as of this encounter Care Teams Risk Consulting Treasury Director Relationship Specialty Start Date End Date Elmo Escobar MD PCP - General 10/18/20 01/05/23 documented as of this encounter
--- OUTSIDE RECORDS SUMMARY | 2024-02-03 15:17 | XMS_ITS | Encounter Summary ---
Author Organization Healthcare Address [address] [place] [address] Care Team Providers Care Cut Out And Marking Machine Operator Name Role Phone Elmo Escobar MD Primary Care Provider [phone] Encounter Details Date Type Department Care Team (Latest Contact Info) Description 12/06/2022 Travel Social History Tobacco Use Types Packs/Day [...] drink first t caleb in the morning (EYE-FOOD SERVICE DRIVER) to steady your nerves or to get [...] documented as of this encounter Care Teams Cut Out And Marking Machine Operator Relationship Specialty Start Date End Date Elmo Escobar MD PCP - General 10/18/20 01/05/23 documented as of this encounter
--- OUTSIDE RECORDS SUMMARY | 2024-02-03 15:17 | XMS_ITS | Encounter Summary ---
Author Organization Healthcare Address [address] [place] [address] Care Team Providers Care Train Attendant Name Role Phone Elmo Escobar MD Primary Care Provider [phone] Encounter Details Date Type Department Care Team (Latest Contact Info) Description 12/26/2022 Travel Social History Tobacco Use Types Packs/Day Years Used Date Smoking Tobacco: Every Day Cigarettes 1 15 Smokeless Tobacco: Never Alcohol Use Standard Drinks/Week Comments Not Currently 0 (1 standard drink = 0.6 oz pur e alcohol) PHQ-2 Answer Date Recorded Patient Health Questionnaire-2 Score 2 11/21/2020 CAGE ASSESSMENT Answer Date Recorded Cage unable to access Not on file 12/27/2022 Maximum number of drinks you had on a given occasion in the last month? 5 or more drinks 12/27/2022 How many alcoholic Beverages do you typically drink in a week? 8 - 14 per week 12/27/2022 Have you ever felt you shoul d CUT down on your drinking? 1 12/27/2022 Have you been ANNOYED by peo ple criticizing your drinking? 0 12/27/2022 Have you felt GUILTY about your drinking? 0 12/27/2022 Have you had a drink first t caleb in the morning (EYE-MANAGER SEARCH) to steady your nerves or to get rid of a hangover? 0 12/27/2022 CAGE Questionnaire Score 1 023 Comments No Sex and Gender Information [...] documented as of this encounter Care Teams Train Attendant Relationship Specialty Start Date End Date Elmo Escobar MD PCP - General 10/18/20 01/05/23 documented as of this encounter
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
--- OUTSIDE RECORDS SUMMARY | 2024-02-03 15:17 | XMS_ITS | Encounter Summary ---
Author Organization Healthcare Address [address] [place] [address] Care Team Providers Care Machine Adjuster Leader Name Role Phone Elmo Escobar MD Primary Care Provider [phone] Encounter Details Date Type Department Care Team (Latest Contact Info) Description 12/27/2022 Travel Social History Tobacco Use Types Packs/Day [...] drink first t caleb in the morning ([employer]) to steady your nerves or to get rid of a hangover? 0 12/28/2022 CAGE Questionnaire Score 1 023 Comments No [...] documented as of this encounter Care Teams Machine Adjuster Leader Relationship Specialty Start Date End Date Elmo Escobar MD PCP - General 10/18/20 01/05/23 documented as of this encounter
--- OUTSIDE RECORDS SUMMARY | 2024-02-03 15:17 | XMS_ITS | Encounter Summary ---
Author Organization Healthcare Address [address] [place] [address] Care Team Providers Care Plumber Helper Name Role Phone Elmo Escobar MD Primary Care Provider [phone] Reason for Visit * Reason Comments Abdominal Pain Encounter Details Date Type Department Care Team (Late st Contact Info) Description 12/06/2022 10:08 AM EDT - 12/06/2022 12:15 PM EDT Emergency [facility] Emergency Department [address] [place] [address] Carter Donis MD [address] [place] [address] Left upper quadrant abdominal pain [...] drink first t caleb in the morning (EYE-SOLAR ENERGY ADVISOR) to steady your nerves or to get [...] Sign Reading Time Taken Comments Blood Pressure 132/87 12/06/2022 12:14 PM EDT Pulse 89 12/06/2022 12:14 PM EDT Temperature 36.6 ??C (97.9 ??F) 12/06/2022 10:07 AM E DT Respiratory Rate 18 12/06/2022 10:07 AM EDT Oxygen Saturation 100% 12/06/2022 12:14 PM EDT Inhaled Oxygen Concentration - - Weight 106 kg (234 lb 9.1 oz) 12/06/2022 10:07 A M EDT Height 165.1 cm (5' 5 ) 12/06/2022 10:07 AM EDT Body Mass Index 39.03 12/06/2022 10:07 AM EDT documented in this encounter Discharge Instructions * Discharge Instructions* Sherrill Angel RN - 12/06/2022 12:14 PM EDT follow up with your primary provider in the next 3-5 days. You may return to the ED for worsening symptoms. * Attachments The following attachments cannot be sent through Care Everywhere. * Abdominal Pain, Adult (Indonesian) documented in this encounter Medications at Time of Discharge pantoprazole (Protonix) 40 MG EC tablet Take 1 tablet (40 mg) by mouth 1 (one) time each day. Do not crush, chew, or split. famotidine (Pepcid) 20 MG tablet Take 1 tablet (20 mg) by mouth 2 (two) times a day. 60 tablet 11/14/2022 3 acetaminophen (Tylenol) 500 MG tablet Take [...] needed for nausea or vomiting. 4 pancrelipase, Ayg-Dopi-Ddyg, (Creon) [id number] units capsule Take 1 capsule by mouth 3 (three) times a day with meals. 90 capsule 1 11/14/2022 3 pregabalin (Lyrica) 100 MG capsule Take [...] Provider Notes - Carter Donis MD - 12/06/2022 10:00 AM EDT - HPI Chief Complaint Patient presents with Abdominal Pain Lila Mcnally is a 36 y.o. female w/ h/o HTN, GERD, pancreatitis and fibromyalgia who presents to the ED with abdominal pain. Pt c/o abdominal pain that started a couple days ago accompanied by d/n/v. Pt reports pain is located in LUQ and LLQ of the abdomen and stabs straight through her back. Pt explains taking Zofran and oxycodone for pain relief. She sates only oxycodone helped. Pt reports plans to see GI doctor on the 18 of December. Pt denies chest pain, fever, urinary symptoms ad headache. 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 by: Patient chief lifestyle officer used: No No data recorded Patient History Past Medical History: Diagnosis Date Anxiety Arthritis Depression Fibromyalgia Gastric erosions 04/19/2021 GERD (gastroesophageal reflux disease) Hypertension Intentional overdose ([facility]) 12/20/2021 Nicotine dependence [...] are negative. Physical Exam ED Triage Vitals [12/06/22 1007] Temp Heart Rate Resp BP 36.6 ??C (97.9 ??F) 107 18 (!) 149/99 SpO2 Temp Source Heart Rate Source Patient [...] Course & MDM ED Course as of 12/06/22 1338 Sat Dec 06, 2022 1107 Lactate: 2.0 [ER] 1112 WBC: 5.36 [ER] 1112 Hemoglobin: 12.4 [ER] 1149 Lipase(!): 99 [ER] 1149 Comprehensive Metabolic Panel, Plasma(!) [ER] ED Course User Index [ER] Carter Donis MD Clinical Impressions as of 12/06/221337 Left upper quadrant abdominal pain - Medical Decision Making This patient arrives with acute on chronic abdominal pain. She was evaluated in 2 emergency departments for the last 2 days with reassuring workups at both. I reviewed both the emergency department note from our ED here as well as the Department at [facility] yesterday. She has a reassuring exam, reassuring vital signs and overall low suspicion for acute pathology. Differential includes acute on chronic pancreatitis, gastritis, colitis, diverticulitis. Laboratory studies remain on actionable at this time and symptoms are controlled with by mouth medicines in the ED. Discharged on promethazine Medications oxyCODONE (Roxicodone) immediate release tablet 10 mg (10 mg Oral Given 12/06/22 1041) lactated Ringer's infusion 500 mL (0 mL Intravenous Stopped 12/06/22 1201) promethazine (Phenergan) tablet 25 mg (25 mg Oral Given 12/06/22 1041) oxyCODONE (Roxicodone) immediate release tablet 5 mg (5 mg Oral Given 12/06/22 1213) 12/06/2022, 10:10 AM Scribe Attestation: This note was dictated to me, Lida Kapadia, acting as a scribe for Carter Howard MD. Attending Attestation: This documentation was recorded by Lida Kapadia acting as a scribe in mypresence at the time of the encounter and accurately reflects the service I personally performed and the decisions made by me. ED Prescriptions None Sign Off Checklist Clinical Impression: Complete ED Disposition: Complete - Carter Donis MD 12/06/22 4082 * ED Triage Notes - Carlton Sr RN - 12/06/2022 10:00 AM EDT Pt complains of middle abdominal pain with NVD that's stabbing through to her back that started couple days ago. documented in this encounter Plan of Treatment Not on file documented as of this encounter Procedures Procedure Name Priority Date/Time Associated Diagnosis Comments URINE GUNTER PANEL Routine 12/06/2022 12:0 0 PM EDT URINALYSIS WITH REFLEX MICROSCOPIC STAT 12/06/2022 12:00 PM EDT LACTATE, VENOUS STAT 12/06/2022 11:00 AM EDT CBC WITH AUTO DIFFERENTIAL STAT 12/06/2022 11:00 AM EDT LIPASE, PLASMA STAT 12/06/2022 11:00 AM EDT COMPREHENSIVE METABOLIC PANEL, PLASMA STAT 12/06/2022 11:00 AM EDT documented in this encounter Results * Urine Gunter (12/06/2022 12:00 PM EDT) Urine Urine specimen obtained by clean catch procedure / Unknown 12/06/2022 12:00 PM EDT 12/06/2022 12:10 PM EDT us Carter Donis MD LAB URINE ORDERABLES Final Resul t Performing Organization Address City/State/[facility] Co de Phone Number [facility] [address] [place] [id number] * Urinalysis with reflex microscopic (12/06/2022 12:00 PM EDT) Color, Urine Yellow LAB URINALYSIS - AUTOMATED METHOD 12/06/2022 12:08 PM EDT [facility] Clarity, Urine Clear LAB URINALYSIS - AUTOMATED METHOD 12/06/2022 12:08 PM EDT [facility] Spec [place], Urine 1.020 <=1.005 to >=1.030 LAB URINALYSIS - AUTOMATED METHOD 12/06/2022 12:08 PM EDT [facility] pH, Urine 6.0 4.5 to 8 LAB URINALYSIS - AUTOMATED METHOD 12/06/2022 12:08 PM EDT [facility] Protein, Urine Negative Negative mg/dL LAB URINALYSIS - AUTOMATED METHOD 12/06/2022 12:08 PM EDT [facility] Glucose, Urine Negative Negative mg/dL LAB URINALYSIS - AUTOMATED METHOD 12/06/2022 12:08 PM EDT [facility] Ketones, Urine Negative Negative mg/dL LAB URINALYSIS - AUTOMATED METHOD 12/06/2022 12:08 PM EDT [facility] Blood, Urine Negative Negative LAB URINALYSIS - AUTOMATED METHOD 12/06/2022 12:08 PM EDT [facility] Bilirubin, Urine Negative Negative LAB URINALYSIS - AUTOMATED METHOD 12/06/2022 12:08 PM EDT [facility] Urobilinogen, Urine 0.2 0.2 to 1.0 mg/dL LAB URINALYSIS - AUTOMATED METHOD 12/06/2022 12:08 PM EDT [facility] Leukocytes, Urine Negative Negative LAB URINALYSIS - AUTOMATED METHOD 12/06/2022 12:08 PM EDT [facility] Nitrite, Urine Negative Negative LAB URINALYSIS - AUTOMATED METHOD 12/06/2022 12:08 PM EDT [facility] Urine Urine specimen obtained by clean catch procedure / Unknown Non-blood Collection / Unknown 12/06/2022 12:00 PM EDT 12/06/2022 12:04 PM EDT us Carter Donis MD LAB URINE ORDERABLES Final Resul t Performing Organization Address City/[facility] de Phone Number [facility] [address] [place] [address] * Lactate, venous (12/06/2022 11:00 AM EDT) Lactate, Venous, Whole Blood 2.0 0.5 - 2.2 mmol/L LAB HEMATOLOGY METHOD 12/06/2022 11:05 AM EDT [facility] Blood Venous blood specimen / Unknown Venipuncture / Unknown 12/06/2022 11:00 AM EDT 12/06/2022 11:03 AM EDT us Carter Donis MD LAB BLOOD ORDERABLES Final Resul t Performing Organization Address City/[facility] Co de Phone Number [facility] [address] [place] [address] * (ABNORMAL) Lipase, Plasma (12/06/2022 11:00 AM EDT) Lipase, Plasma 99(H) 19 - 63 U/L 12/06/2022 11:48 AM EDT [facility] Blood Venous blood specimen / Unknown Venipuncture / Unknown 12/06/2022 11:00 AM EDT 12/06/2022 11:07 AM EDT us Carter Donis MD LAB BLOOD ORDERABLES Final Resul t [facility] [address] [place] [phone] * (ABNORMAL) CBC and Differential (12/06/2022 11:00 AM EDT) Pathologist [facility] WBC Count 5.36 3.70 - 10.30 10*3/uL LAB HEMATOLOGY METHOD 12/06/2022 11:11 AM EDT [facility] RBC Count 4.72 3.90 - 5.20 10*6/uL LAB HEMATOLOGY METHOD 12/06/2022 11:11 AM EDT [facility] HGB 12.4 11.2 - 15.7 g/dL LAB HEMATOLOGY METHOD 12/06/2022 11:11 AM EDT [facility] HCT 38.9 34.0 - 45.0 % LAB HEMATOLOGY METHOD 12/06/2022 11:11 AM EDT [facility] Platelet Count 220 155 - 369 10*3/uL LAB HEMATOLOGY METHOD 12/06/2022 11:11 AM EDT [facility] MCV 82 79 - 98 fL LAB HEMATOLOGY METHOD 12/06/2022 11:11 AM EDT [facility] MCH 26.3 26.0 - 32.0 pg LAB HEMATOLOGY METHOD 12/06/2022 11:11 AM EDT [facility] MCHC 31.9 30.7 - 35.5 g/dL LAB HEMATOLOGY METHOD 12/06/2022 11:11 AM EDT [facility] RDW 16.0(H) 11.5 - 14.5 % LAB HEMATOLOGY METHOD 12/06/2022 11:11 AM EDT [facility] MPV 9.5 8.8 - 12.5 fL LAB HEMATOLOGY METHOD 12/06/2022 11:11 AM EDT [facility] nRBC 0.0 <=0.0 per 100 WBCs LAB HEMATOLOGY METHOD 12/06/2022 11:11 AM EDT [facility] Differential Type Automated LAB HEMATOLOGY METHOD 12/06/2022 11:11 AM EDT [facility] Neutrophils % 65.0 % LAB HEMATOLOGY METHOD 12/06/2022 11:11 AM EDT [facility] Lymphocytes % 25.0 % LAB HEMATOLOGY METHOD 12/06/2022 11:11 AM EDT [facility] Monocytes % 5.0 % LAB HEMATOLOGY METHOD 12/06/2022 11:11 AM EDT [facility] Eosinophils % 3.0 % LAB HEMATOLOGY METHOD 12/06/2022 11:11 AM EDT [facility] Basophils % 1.0 % LAB HEMATOLOGY METHOD 12/06/2022 11:11 AM EDT [facility] Immature Granulocytes % 1.0 % LAB HEMATOLOGY METHOD 12/06/2022 11:11 AM EDT [facility] Neutrophils Absolute 3.52 1.60 - 6.10 10*3/uL LAB HEMATOLOGY METHOD 12/06/2022 11:11 AM EDT [facility] Lymphocytes Absolute 1.34 1.20 - 3.90 10*3/uL LAB HEMATOLOGY METHOD 12/06/2022 11:11 AM EDT [facility] Monocytes Absolute 0.27(L) 0.30 - 0.90 10*3/uL LAB HEMATOLOGY METHOD 12/06/2022 11:11 AM EDT [facility] Eosinophils Absolute 0.15 0.00 - 0.50 10*3/uL LAB HEMATOLOGY METHOD 12/06/2022 11:11 AM EDT [facility] Basophils Absolute 0.05 0.00 - 0.10 10*3/uL LAB HEMATOLOGY METHOD 12/06/2022 11:11 AM EDT [facility] Immature Granulocytes Absolute 0.03 0.00 - 0.06 10*3/uL LAB HEMATOLOGY METHOD 12/06/2022 11:11 AM EDT [facility] Blood Venous blood specimen / Unknown Venipuncture / Unknown 12/06/2022 11:00 AM EDT 12/06/2022 11:07 AM EDT [facility] - 12/06/2022 11:11 AM EDT Therapeutic decision making should be based on absolute values, rather than percentages. us Carter Donis MD LAB BLOOD ORDERABLES Final Resul t [facility] [address] [place] [address] * (ABNORMAL) Comprehensive Metabolic Panel, Plasma (12/06/2022 11:00 AM EDT) Glucose, Plasma 95 74 - 99 mg/dL 12/06/2022 11:48 AM EDT [facility] BUN, Plasma 12 7 - 21 mg/dL 12/06/2022 11:48 AM EDT [facility] Creatinine, Plasma 0.64 0.60 - 1.10 mg/dL 12/06/2022 11:48 AM EDT [facility] BUN/Creatinine Ratio 19 12/06/2022 11:48 AM EDT [facility] Sodium, Plasma 136 136 - 145 mmol/L 12/06/2022 11:48 AM EDT [facility] Potassium, Plasma 4.4 3.7 - 4.8 mmol/L 12/06/2022 11:48 AM EDT [facility] Chloride, Plasma 102 97 - 107 mmol/L 12/06/2022 11:48 AM EDT [facility] CO2, Plasma 20(L) 22 - 29 mmol/L 12/06/2022 11:48 AM EDT [facility] Anion Gap 14 6 - 16 mmol/L 12/06/2022 11:48 AM EDT [facility] Total Calcium, Plasma 9.4 8.9 - 10.2 mg/dL 12/06/2022 11:48 AM EDT [facility] Total Protein 7.3 6.3 - 7.9 g/dL 12/06/2022 11:48 AM EDT [facility] Albumin, Plasma 4.3 3.5 - 5.2 g/dL 12/06/2022 11:48 AM EDT [facility] AST, Plasma 35 10 - 35 U/L 12/06/2022 11:48 AM EDT [facility] Comment:Hemolyzed, result ma y be falsely increased. ALT, Plasma 34 10 - 35 U/L 12/06/2022 11:48 AM EDT [facility] Alkaline Phosphatase, Plasma 87 35 - 104 U/L 12/06/2022 11:48 AM EDT [facility] Total Bilirubin, Plasma 0.3 0.2 - 1.1 mg/dL 12/06/2022 11:48 AM EDT [facility] eGFRcr 118.4 mL/min/1.7 3m*2 12/06/2022 11:48 AM EDT [facility] Comment:Reported eGFRcr in m L/min/1.73m2 is based the CKD-EPI 2020 equation that does not use a race coefficient. Blood Venous blood specimen / Unknown Venipuncture / Unknown 12/06/2022 11:00 AM EDT 12/06/2022 11:07 AM EDT us Carter Donis MD LAB BLOOD ORDERABLES Final Resul t [facility] [address] [place] [address] documented in this encounter Visit Diagnoses Diagnosis Left upper quadrant abdominal pain- Primary documented in this encounter Administered Medications Inactive Administered Medications - up to 3 most recent administrations Medication Order MAR Action Action Date Dose Rate Site lactated Ringer's infusion 500 mL 500 mL, Intravenous, Once, 1 dose, On 12/06/22 at 1025, STAT New Bag 12/06/2022 11:01 AM EDT 500 mL oxyCODONE (Roxicodone) immediate release tablet 10 mg 10 mg, Oral, Every 4 hours PRN, 2 doses, Starting on 12/06/22 at 1021, Until 12/06/22 at 1419, Routine, severe pain Given 12/06/2022 10:41 AM EDT 10 mg oxyCODONE (Roxicodone) immediate release tablet 5 mg 5 mg, Oral, Once, 1 dose, On 12/06/22 at 1215, STAT Given 12/06/2022 12:13 PM EDT 5 mg promethazine (Phenergan) tablet 25 mg 25 mg, Oral, Once, 1 dose, On 12/06/22 at 1025, STAT Given 12/06/2022 10:41 AM EDT 25 mg documented in this encounter Active and Recently Administered Medications Times are shown in EDT. Scheduled Medication Order 12/04/2022 12/05/2022 12/06/2022 lactated Ringer's infusion 500 mL (COMPLETED) 500 mL, Intravenous, Once, 1 dose, On 12/06/22 at 1025, STAT 1101 (New Bag - Prov ider: Sherrill M Stanley, RN)1201 (Stopped - Provider: Sherrill Angel RN) oxyCODONE (Roxicodone) immediate release tablet 5 mg (COMPLETED) 5 mg, Oral, Once, 1 dose, On 12/06/22 at 1215, STAT 1213 (Given - Provid er: Sherrill Angel RN) promethazine (Phenergan) tablet 25 mg (COMPLETED) 25 mg, Oral, Once, 1 dose, On 12/06/22 at 1025, STAT 1041 (Given - Provid er: Sherrill Angel RN) PRN Medication Order 12/04/2022 12/05/2022 12/06/2022 oxyCODONE (Roxicodone) immediate release tablet 10 mg 10 mg, Oral, Every 4 hours PRN, 2 doses, Starting on 12/06/22 at 1021, Until 12/06/22 at 1419, Routine, severe pain 1041 (Given - Provid er: Sherrill Angel RN) documented in this encounter Additional Health Concerns Assessment Noted Time A fall risk assessment has been complete d for the patient 11/21/2020 2:30 PM EDT documented as of this encounter Care Teams Plumber Helper Relationship Specialty Start Date End Date Elmo Escobar MD PCP - General 10/18/20 01/05/23 documented as of this encounter
--- OUTSIDE RECORDS SUMMARY | 2024-02-03 15:17 | XMS_ITS | Encounter Summary ---
Author Organization Healthcare Address [address] [place] [address] Care Team Providers Care Associate Account Manager Name Role Phone Elmo Escobar MD Primary Care Provider [phone] Encounter Details Date Type Department Care Team (Latest Contact Info) Description 11/29/2022 Travel Social History Tobacco Use Types Packs/Day [...] first t caleb in the morning (EYE-SUPERVISOR LONG GOODS) to steady your nerves or to get [...] documented as of this encounter Care Teams Associate Account Manager Relationship Specialty Start Date End Date Elmo Escobar MD PCP - General 10/18/20 01/05/23 documented as of this encounter
--- OUTSIDE RECORDS SUMMARY | 2024-02-03 15:17 | XMS_ITS | Encounter Summary ---
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
--- OUTSIDE RECORDS SUMMARY | 2024-02-03 15:17 | XMS_ITS | Encounter Summary ---
Author Organization Healthcare Address [address] [place] [address] Care Team Providers Care Cork Tipper Name Role Phone Elmo Escobar MD Primary Care Provider [phone] Reason for Visit * Reason Comments Abdominal Pain Encounter Details Date Type Department Care Team (Late st Contact Info) Description 11/29/2022 8:05 PM EDT - 11/29/2022 11:00 PM EDT Emergency [facility] Emergency Department [address] [place] [address] Left upper quadrant abdominal pain [...] drink first t caleb in the morning ([employer]) to steady your nerves or to get [...] Sign Reading Time Taken Comments Blood Pressure 148/99 11/29/2022 10:59 PM EDT Pulse 78 11/29/2022 10:59 PM EDT Temperature 36.7 ??C (98.1 ??F) 11/29/2022 10:59 PM E DT Respiratory Rate 20 11/29/2022 10:59 PM EDT Oxygen Saturation 96% 11/29/2022 10:59 PM EDT Inhaled Oxygen Concentration - - Weight 107 kg (235 lb 14.3 oz) 11/29/2022 8:04 P M EDT Height - - Body Mass Index 39.25 11/18/2022 8:52 AM EDT documented in this encounter Discharge Instructions * Discharge Instructions* Claudio Herrera PA - 11/29/2022 10:49 PM EDT Please follow-up with family physician in 2 days on Thursday. Please follow-up with power transformer inspector on Thursday in 2 days. Please follow-up with pain clinic in 2 days on Thursday. Please return to the emergency room immediately with any worsening of symptoms, any problems or concerns. Please leaf size picker your prescription at [facility] in [facility] upon discharge. * Attachments The following attachments cannot be sent through Care Everywhere. * Abdominal Pain, Adult (Indian) documented in this encounter Medications at Time of Discharge pantoprazole (Protonix) 40 MG EC tablet Take 1 tablet (40 mg) by mouth 1 (one) time each day. Do not crush, chew, or split. famotidine (Pepcid) 20 MG tablet Take 1 tablet (20 mg) by mouth 2 (two) times a day. 60 tablet 11/14/2022 10/22/202 3 promethazine (Phenergan) 25 MG tablet Take 0.5 tablets (12.5 mg) by mouth every 6 (six) hours if needed for nausea or vomiting for up to 4 days. 8 tablet 11/29/2022 3 acetaminophen (Tylenol) 500 MG tablet Take [...] needed for nausea or vomiting. 4 pancrelipase, Xra-Yieb-Cuvz, (Creon) 6000-99140 units capsule Take 1 capsule by mouth 3 (three) times a day with meals. 90 capsule 1 11/14/2022 3 pregabalin (Lyrica) 100 MG capsule Take 1 capsule (100 mg) by mouth 3 (three) times a day. 4 promethazine (Phenergan) 25 MG tablet Take 1 tablet (25 mg) by mouth every 6 (six) hours if needed for nausea or vomiting. 30 tablet 11/25/2022 3 sucralfate (Carafate) 1 GM/10ML suspension Take 10 mL (1 g) by mouth 4 (four) times a day. 4 documented as of this encounter Miscellaneous Notes * ED Provider Notes - Claudio Herrera PA - 11/29/2022 7:51 PM EDT - HPI Chief Complaint Patient presents with Abdominal Pain Patient is a 36-year-old female who presents to the emergency room with abdominal pain to left upper quadrant. Patient has had similar pain in the past multiple times. Patient reports that she was recently admitted due to the pain to her left upper quadrant. Patient reports that she is supposed to follow-up with pain management. Patient reports nausea, but no vomiting or diarrhea. Patient reportsno chest pain, no shortness of air, wheezing or stridor. Patient reports no fever or chills. Patient reports no back pain, flank pain or urinary symptoms. Patient reports no neck pain or neck stiffness. Patient reports no vaginal bleeding or vaginal discharge. Patient reports no headache, visual kobe nges or tinnitus. Patient reports no numbness/tingling weakness. Patient reports no dizziness or feeling lightheaded. 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: No Abdominal Pain Pain location: LUQ Pain quality: stabbing Pain radiates to: Does not radiate Pain severity: Moderate Onset quality: Gradual Duration: 2 days Timing: Constant Progression: Waxing and waning Chronicity: New Relieved by: Nothing Worsened by: Nothing Ineffective treatments: None tried Associated symptoms: nausea Associated symptoms: no chest pain, no chills, no constipation, no cough, no diarrhea, no dysuria, no fatigue, no fever, no flatus, no hematemesis, no hematochezia, no hematuria, no melena, no shortness of breath, no vaginal bleeding, no vaginal discharge and no vomiting Risk factors: obesity No data recorded Patient History Past Medical History: Diagnosis Date Anxiety Arthritis Depression Fibromyalgia Gastric erosions 04/19/2021 GERD (gastroesophageal reflux disease) Hypertension Intentional overdose ([facility]) 12/20/2021 Nicotine dependence Obesity Pancreatitis Past Surgical History: Procedure Laterality Date CHOLECYSTECTOMY ERCP ESOPHAGOGASTRODUODENOSCOPY HAND SURGERY Family History Problem Relation Name Age of Onset Hypertension Mother No Known Problems Father Tobacco Use Smoking status: Every Day Packs/day: 1.00 Years: 15.00 Total pack years: 15.00 Types: Cigarettes Smokeless [...] and leg swelling. Gastrointestinal: Positive for abdominal pain and nausea. Negative for abdominal distention, anal bleeding, blood in stool, constipation, diarrhea, flatus, hematemesis, hematochezia, melena, rectal pain and vomiting. Genitourinary: Negative for decreased urine volume, difficulty urinating, dysuria, flank pain, frequency, hematuria, pelvic pain, urgency, vaginal bleeding, vaginal discharge and vaginal pain. Musculoskeletal: Negative for arthralgias, myalgias, neck pain and neck stiffness. Skin: Negative for color change and pallor. Neurological: Negative for dizziness, tremors, syncope, speech difficulty, weakness, light-headedness, numbness and headaches. Psychiatric/Behavioral: Negative for behavioral problems. The patient is not nervous/anxious. Physical Exam ED Triage Vitals [11/29/222003] Temp Heart Rate Resp BP 37.2 ??C (99 ??F) 102 19 (!) 158/94 SpO2 Temp Source Heart Rate Source Patient Position 97 % Oral -- Sitting BP Location FiO2 [...] Tachycardia present. Heart sounds: Normal heart sounds. No murmur [...] left CVA tenderness, guarding or rebound. Skin: General: Skin is warm and dry. Capillary Refill: Capillary refill takes less than 2 seconds. Coloration: Skin is not cyanotic, jaundiced, mottled or pale. Neurological: General: No focal deficit present. Mental Status: She is alert and oriented to person, place, and time. Psychiatric: Mood and Affect: Mood normal. Behavior: Behavior normal. ED Course & MDM Labs Reviewed CBC W/O DIFFERENTIAL - Abnormal Result Value WBC Count 7.02 RBC Count 4.55 HGB 12.2 HCT 36.5 Platelet Count 258 MCV 80 MCH 26.8 MCHC 33.4 RDW 15.9 (*) MPV 9.7 nRBC 0.0 COMPREHENSIVE METABOLIC PANEL, PLASMA - Abnormal Glucose, Plasma 92 BUN, Plasma 6 (*) Creatinine, Plasma 0.64 BUN/Creatinine Ratio 9 Sodium, Plasma 137 Potassium, Plasma 3.9 Chloride, Plasma 102 CO2, Plasma 25 Anion Gap 10 Total Calcium, Plasma 9.5 Total Protein 7.1 Albumin, Plasma 4.2 AST, Plasma 17 ALT, Plasma 17 Alkaline Phosphatase, Plasma 89 Total Bilirubin, Plasma 0.2 eGFRcr 118.4 LIPASE, PLASMA - Abnormal Lipase, Plasma 82 (*) LACTATE, VENOUS - Normal Lactate, Venous, Whole Blood 1.1 TEST QUALITATIVE PLASMA - Normal Test Negative Narrative: Reference Range: Males and non- females: Negative. URINALYSIS WITH REFLEX MICROSCOPIC Color, Urine Yellow Clarity, Urine Clear Spec [place], Urine >=1.030 pH, Urine 7.5 Protein, Urine Negative Glucose, Urine Negative Ketones, Urine Negative Blood, Urine Negative Bilirubin, Urine Negative Urobilinogen, Urine 0.2 Leukocytes, Urine Negative Nitrite, Urine Negative CT Abdomen Pelvis w IV Contrast Final Result 1. Unremarkable examination of the abdomen and pelvis. CRITICAL RESULT: No. COMMUNICATION: Per this written report. Drafted by Francis Ceja MD on 11/29/2022 10:03 PM Final report signed by Francis Ceaj MD on 11/29/2022 10:07 PM Medications morphine PF 4 mg (has no administration in time range) ondansetron (Zofran) injection 4 mg (4 mg Intravenous Given 11/29/222037) fentaNYL (Sublimaze) injection 50 mcg (50 mcg Intravenous Given 11/29/222037) promethazine (Phenergan) injection 12.5 mg (12.5 mg Intravenous Given 11/29/222113) iohexol (OMNIPaque) 300 MG/ML injection 100 mL (100 mL Intravenous Given 11/29/222115) sodium chloride 0.9 % infusion 1,000 mL (1,000 mL Intravenous New Bag 11/29/222119) oxyCODONE (Roxicodone) immediate release tablet 10 mg (10 mg Oral Given 11/29/222213) ED Course as of 11/29/222245 Sat Nov 29, 20222241 Patient with a UA completed with no significant or critical findings. Patient's hCG negative. Patient's lactate normal. Patient's lipase is 82. Patient with a CMP completed with BUN 6 with no other significant or critical findings on CMP. Patient with a CBC completed with no significant or critical findings. [TN] ED Course User Index [TN] Claudio Herrera PA Clinical Impressions as of 11/29/222245 Left upper quadrant abdominal pain - Medical Decision Making Patient is a 36-year-old female who presents to the emergency room with abdominal pain to left upper quadrant. Patient has had similar pain in the past multiple times. Patient reports that she was recently admitted due to the pain to her left upper quadrant. Patient reports that she is supposed to follow-up with pain management. Patient reports nausea, but no vomiting or diarrhea. Patient was given fentanyl for pain, Zofran and Phenergan for nausea. Patient was given 1000 mL of normal saline. Patient with labs completed: Patient with a UA completed with no significant or critical findings. Patient's hCG negative. Patient's lactate normal. Patient's lipase is 82. Patient with a CMP completed with BUN 6 with no other significant or critical findings on CMP. Patient with a CBC completed withno significant or critical findings. Patient with a CT scan to abdomen and pelvis completed with noacute findings per Radiology. Did discuss with patient concerning lab results and CT scan results with patient verbalizing understanding. Patient in the ED did receive 1000 mL normal saline, fentanyl, oxycodone and morphine for pain. Patient also received Phenergan and Zofran for nausea. Patient reports at time of discharge that she is feeling much better and is ready to go home. Patient was instructed to complete a clear liquid diet for the next 2 days. Patient was instructed to follow-up withfamily physician in 2 days. Patient was instructed to follow-up with power transformer inspector in 2 days on Thursday. Patient was given explicit return precautions to the ED with patient verbalizing understanding agrees with plan with no further questions. Patient was given a prescription for Phenergan withbeing sent to [facility] at discharge. Amount and/or Complexity of Data Reviewed Labs: ordered. Decision-making details documented in ED Course. Radiology: ordered. Decision-making details documented in ED Course. ED Prescriptions None Sign Off Checklist Clinical Impression: Complete ED Disposition: Complete - Claudio Herrera PA 11/29/22 [id number] Cosigned by Sharon Tang MD at 11/30/2022 10:56 AM EDT Associated attestation - Sharon Tang MD - 11/30/2022 10:56 AM EDT The patient was seen only by Advanced Practice Provider (AJAY). * ED Triage Notes - Angeles Palacios RN - 11/29/2022 7:51 PM EDT Patient c/o generalized abdominal pain for the past 3 days; reports she followed up with her pcp and is trying to get into the pain clinic but has not been able to yet documented in this encounter Plan of Treatment Not on file documented as of this encounter Procedures Procedure Name Priority Date/Time Associated Diagnosis Comments URINALYSIS WITH REFLEX MICROSCOPIC STAT 11/29/2022 10:[address] ABDOMEN PELVIS W IV CONTRAST STAT 11/29/2022 9:33 PM EDT LACTATE, VENOUS STAT 11/29/2022 8:40 PM EDT CBC W/O DIFFERENTIAL STAT 11/29/2022 8:40 PM EDT TEST QUALITATIVE PLASMA STAT 11/29/2022 8:40 PM EDT LIPASE, PLASMA STAT 11/29/2022 8:40 PM EDT COMPREHENSIVE METABOLIC PANEL, PLASMA STAT 11/29/2022 8:40 PM EDT documented in this encounter Results * Urinalysis with reflex microscopic (11/29/2022 10:02 PM EDT) Color, Urine Yellow LAB URINALYSIS - AUTOMATED METHOD 11/29/2022 10:19 PM EDT [facility] Clarity, Urine Clear LAB URINALYSIS - AUTOMATED METHOD 11/29/2022 10:19 PM EDT [facility] Spec [place], Urine >=1.030 <=1.005 to >=1.030 LAB URINALYSIS - AUTOMATED METHOD 11/29/2022 10:19 PM EDT [facility] pH, Urine 7.5 4.5 to 8 LAB URINALYSIS - AUTOMATED METHOD 11/29/2022 10:19 PM EDT [facility] Protein, Urine Negative Negative mg/dL LAB URINALYSIS - AUTOMATED METHOD 11/29/2022 10:19 PM EDT [facility] Glucose, Urine Negative Negative mg/dL LAB URINALYSIS - AUTOMATED METHOD 11/29/2022 10:19 PM EDT [facility] Ketones, Urine Negative Negative mg/dL LAB URINALYSIS - AUTOMATED METHOD 11/29/2022 10:19 PM EDT [facility] Blood, Urine Negative Negative LAB URINALYSIS - AUTOMATED METHOD 11/29/2022 10:19 PM EDT [facility] Bilirubin, Urine Negative Negative LAB URINALYSIS - AUTOMATED METHOD 11/29/2022 10:19 PM EDT [facility] Urobilinogen, Urine 0.2 0.2 to 1.0 mg/dL LAB URINALYSIS - AUTOMATED METHOD 11/29/2022 10:19 PM EDT [facility] Leukocytes, Urine Negative Negative LAB URINALYSIS - AUTOMATED METHOD 11/29/2022 10:19 PM EDT [facility] Nitrite, Urine Negative Negative LAB URINALYSIS - AUTOMATED METHOD 11/29/2022 10:19 PM EDT [facility] Urine Urine specimen obtained by clean catch procedure / Unknown Non-blood Collection / Unknown 11/29/2022 10:02 PM EDT 11/29/2022 10:04 PM EDT Claudio NAJERA LAB URINE ORDERABLES Final Resul t Performing Organization Address City/State/[facility] [place] Phone Number [facility] [address] [place] [phone] * CT Abdomen Pelvis w IV Contrast (11/29/2022 9:33 PM EDT) Anatomical Region Laterality Modality Abdomen, Pelvis Computed Tomogra phy Impressions 11/29/2022 10:07 PM EDT 1. Unremarkable examination of the abdomen and pelvis. CRITICAL RESULT: ?? No. COMMUNICATION: Per this written report. Drafted by Francis Ceja MD on 11/29/2022 10:03 PM Final report signed by Francis Ceja MD on 11/29/2022 10:07 PM Narrative 11/29/2022 10:07 PM EDT CLINICAL INDICATION: LUQ abd pain TECHNIQUE: Imaging of the abdomen and pelvis was performed, from lung bases through pubic symphysis, using spiral technique, following administration of IV contrast, Omnipaque 300, 100 mL. Delayed (excretory phase) images were performed through the kidneys. Reformatted images in the coronal and sagittal planes were generated from the axial data set to facilitate diagnostic accuracy. Total DLP (Dose-Length Product): 1529.62 mGy.cm. Please note: The reported value represents the total of one or more individual components during the CT acquisition on this date and at this time, and as such, the same value may appear in more than one CT report depending on the interpreting/reporting physicians. COMPARISON: None. FINDINGS: Lung Bases: The lung bases are [...] free fluid in the pelvis. Pelvis: The pelvic viscera are unremarkable. Body Wall: Normal. Bones: No acute fracture. Procedure Note Francis Ceja MD - 11/29/2022 CLINICAL INDICATION: LUQ abd pain TECHNIQUE: Imaging of the abdomen and pelvis was performed, from lung bases throughpubic symphysis, using spiral technique, following administration of IVcontrast, Omnipaque 300, 100 mL. Delayed (excretory phase) images wereperformed through the kidneys. Reformatted images in the coronal andsagittal planes were generated from the axial data set to facilitatediagnostic accuracy. Total DLP (Dose-Length Product): 1529.62 mGy.cm. Please note: The reportedvalue represents the total of one or more individual components during theCT acquisition on this date and at this time, and as such, the same valuemay appear in more than one CT report depending on theinterpreting/reporting physicians. COMPARISON: None. FINDINGS: Lung Bases: The lung bases are clear. Liver/Gallbladder/Biliary system: The liver demonstrates homogeneousenhancement. Prior [...] free fluid in the pelvis. Pelvis: The pelvic viscera are unremarkable. Body Wall: Normal. Bones: No acute fracture. IMPRESSION: 1. Unremarkable examination of the abdomen and pelvis. CRITICAL RESULT: No. COMMUNICATION: Per this written report. Drafted by Francis Ceja MD on 11/29/2022 10:03 PM Final report signed by Francis Ceja MD on 11/29/2022 10:07 PM us Claudio NAJERA IMG CT PROCEDURES Final Result * hCG, serum, qualitative (11/29/2022 8:40 PM EDT) [facility] Test Negative Negative 11/29/2022 9:06 PM EDT [facility] Blood Venous blood specimen / Unknown Venipuncture / Unknown 11/29/2022 8:40 PM EDT 11/29/2022 8:44 PM EDT Narrative [facility] - 11/29/2022 9:06 PM EDT Reference Range: Males and non- females: Negative. us Claudio NAJERA LAB BLOOD ORDERABLES Final Resul t [facility] [address] [place] [address] * Lactate, venous (11/29/2022 8:40 PM EDT) [facility] Lactate, Venous, Whole Blood 1.1 0.5 - 2.2 mmol/L LAB HEMATOLOGY METHOD 11/29/2022 8:47 PM EDT [facility] Blood Venous blood specimen / Unknown Venipuncture / Unknown 11/29/2022 8:40 PM EDT 11/29/2022 8:44 PM EDT Claudio Lantigua Javier [place] LAB BLOOD ORDERABLES Final Resul t Performing Organization Address [facility] de Phone Number [facility] [address] [place] [address] * (ABNORMAL) Lipase, Plasma (11/29/2022 8:40 PM EDT) [facility] Lipase, Plasma 82(H) 19 - 63 U/L 11/29/2022 9:06 PM EDT [facility] Blood Venous blood specimen / Unknown Venipuncture / Unknown 11/29/2022 8:40 PM EDT 11/29/2022 8:44 PM EDT Claudio Javier [place] LAB BLOOD ORDERABLES Final Resul t Performing Organization Address [facility] de Phone Number [facility] [address] [place] [address] * (ABNORMAL) Comprehensive Metabolic Panel, Plasma (11/29/2022 8:40 PM EDT) [facility] Glucose, Plasma 92 74 - 99 mg/dL 11/29/2022 9:06 PM EDT [facility] BUN, Plasma 6(L) 7 - 21 mg/dL 11/29/2022 9:06 PM EDT [facility] Creatinine, Plasma 0.64 0.60 - 1.10 mg/dL 11/29/2022 9:06 PM EDT [facility] BUN/Creatinine Ratio 9 11/29/2022 9:06 PM EDT [facility] Sodium, Plasma 137 136 - 145 mmol/L 11/29/2022 9:06 PM EDT [facility] Potassium, Plasma 3.9 3.7 - 4.8 mmol/L 11/29/2022 9:06 PM EDT [facility] Chloride, Plasma 102 97 - 107 mmol/L 11/29/2022 9:06 PM EDT [facility] CO2, Plasma 25 22 - 29 mmol/L 11/29/2022 9:06 PM EDT [facility] Anion Gap 10 6 - 16 mmol/L 11/29/2022 9:06 PM EDT [facility] Total Calcium, Plasma 9.5 8.9 - 10.2 mg/dL 11/29/2022 9:06 PM EDT [facility] Total Protein 7.1 6.3 - 7.9 g/dL 11/29/2022 9:06 PM EDT [facility] Albumin, Plasma 4.2 3.5 - 5.2 g/dL 11/29/2022 9:06 PM EDT [facility] AST, Plasma 17 10 - 35 U/L 11/29/2022 9:06 PM EDT [facility] ALT, Plasma 17 10 - 35 U/L 11/29/2022 9:06 PM EDT [facility] Alkaline Phosphatase, Plasma 89 35 - 104 U/L 11/29/2022 9:06 PM EDT [facility] Total Bilirubin, Plasma 0.2 0.2 - 1.1 mg/dL 11/29/2022 9:06 PM EDT [facility] eGFRcr 118.4 mL/min/1.7 3m*2 11/29/2022 9:06 PM EDT [facility] Comment:Reported eGFRcr in m L/min/1.73m2 is based the CKD-EPI 2020 equation that does not use a race coefficient. Blood Venous blood specimen / Unknown Venipuncture / Unknown 11/29/2022 8:40 PM EDT 11/29/2022 8:44 PM EDT us Claudio NAJERA LAB BLOOD ORDERABLES Final Resul t [facility] [address] [place] [address] * (ABNORMAL) CBC W/O Differential (11/29/2022 8:40 PM EDT) [facility] Signature WBC Count 7.02 3.70 - 10.30 10*3/uL LAB HEMATOLOGY METHOD 11/29/2022 8:46 PM EDT [facility] RBC Count 4.55 3.90 - 5.20 10*6/uL LAB HEMATOLOGY METHOD 11/29/2022 8:46 PM EDT [facility] HGB 12.2 11.2 - 15.7 g/dL LAB HEMATOLOGY METHOD 11/29/2022 8:46 PM EDT [facility] HCT 36.5 34.0 - 45.0 % LAB HEMATOLOGY METHOD 11/29/2022 8:46 PM EDT [facility] Platelet Count 258 155 - 369 10*3/uL LAB HEMATOLOGY METHOD 11/29/2022 8:46 PM EDT [facility] MCV 80 79 - 98 fL LAB HEMATOLOGY METHOD 11/29/2022 8:46 PM EDT [facility] MCH 26.8 26.0 - 32.0 pg LAB HEMATOLOGY METHOD 11/29/2022 8:46 PM EDT [facility] MCHC 33.4 30.7 - 35.5 g/dL LAB HEMATOLOGY METHOD 11/29/2022 8:46 PM EDT [facility] RDW 15.9(H) 11.5 - 14.5 % LAB HEMATOLOGY METHOD 11/29/2022 8:46 PM EDT [facility] MPV 9.7 8.8 - 12.5 fL LAB HEMATOLOGY METHOD 11/29/2022 8:46 PM EDT [facility] nRBC 0.0 <=0.0 per 100 WBCs LAB HEMATOLOGY METHOD 11/29/2022 8:46 PM EDT [facility] Blood Venous blood specimen / Unknown Venipuncture / Unknown 11/29/2022 8:40 PM EDT 11/29/2022 8:44 PM EDT Claudio NAJERA LAB BLOOD ORDERABLES Final Resul t [facility] [address] [place] [address] documented in this encounter Visit Diagnoses Diagnosis Left upper quadrant abdominal pain- Primary documented in this encounter Administered Medications Inactive Administered Medications - up to 3 most recent administrations Medication Order MAR Action Action Date Dose Rate Site fentaNYL (Sublimaze) 50 mcg/mL injection - Pyxis Override Pull 1 dose, Starting on 11/29/22 at 2024, Until 11/29/22 at 2037 fentaNYL (Sublimaze) injection 50 mcg 50 mcg, Intravenous, Once, 1 dose, On 11/29/22 at 2024, STAT Given 11/29/2022 8:38 PM EDT 50 mcg iohexol (OMNIPaque) 300 MG/ML injection 100 mL 100 mL, Intravenous, Once in imaging, 1 dose, Starting on 11/29/22 at 2107, Until 11/29/22 at 2116, Routine, Imaging Protocol Orders Given 11/29/2022 9:16 PM EDT 100 mL morphine PF 4 mg 4 mg, Intravenous, Once, 1 dose, On 11/29/22 at 2245, STAT Given 11/29/2022 10:59 PM EDT 4 mg ondansetron (Zofran) 4 MG/2ML injection - Pyxis Override Pull 1 dose, Starting on 11/29/22 at 2025, Until 11/29/22 at 2037 ondansetron (Zofran) injection 4 mg 4 mg, Intravenous, Once, 1 dose, On 11/29/22 at 2024, STAT Given 11/29/2022 8:38 PM EDT 4 mg oxyCODONE (Roxicodone) immediate release tablet 10 mg 10 mg, Oral, Once, 1 dose, On 11/29/22 at 2210, STAT Given 11/29/2022 10:14 PM EDT 10 mg promethazine (Phenergan) injection 12.5 mg 12.5 mg, Intravenous, Once, 1 dose, On 11/29/22 at 2110, STAT Given 11/29/2022 9:14 PM EDT 12.5 mg sodium chloride 0.9 % infusion 1,000 mL 1,000 mL, Intravenous, Once, 1 dose, On 11/29/22 at 2120, STAT New Bag 11/29/2022 9:20 PM EDT 1,000 mL documented in this encounter Active and Recently Administered Medications Times are shown in EDT. Scheduled Medication Order 11/27/2022 11/28/2022 11/29/2022 fentaNYL (Sublimaze) injection 50 mcg (COMPLETED) 50 mcg, Intravenous, Once, 1 dose, On 11/29/22 at 2024, STAT 2037 (Given - Provid er: Sheyla Chang RN) iohexol (OMNIPaque) 300 MG/ML injection 100 mL (COMPLETED) 100 mL, Intravenous, Once in imaging, 1 dose, Starting on 11/29/22 at 2107, Until 11/29/22 at 2115, Routine, Imaging Protocol Orders 2115 (Given - Provid er: Sena Jerez) morphine PF 4 mg (COMPLETED) 4 mg, Intravenous, Once, 1 dose, On 11/29/22 at 2245, STAT 2259 (Given - Provid er: Sheyla Chang, RN) ondansetron (Zofran) injection 4 mg (COMPLETED) 4 mg, Intravenous, Once, 1 dose, On 11/29/22 at 2024, STAT 2037 (Given - Provid er: Sheyla Chang, RN) oxyCODONE (Roxicodone) immediate release tablet 10 mg (COMPLETED) 10 mg, Oral, Once, 1 dose, On 11/29/22 at 2210, STAT 221 (Given - Provid er: Sheyla Chang, RN) promethazine (Phenergan) injection 12.5 mg (COMPLETED) 12.5 mg, Intravenous, Once, 1 dose, On 11/29/22 at 211, STAT 2113 (Given - Provid er: Sheyla Chang, CHANDNI) sodium chloride 0.9 % infusion 1,000 mL (COMPLETED) 1,000 mL, Intravenous, Once, 1 dose, On 11/29/22 at 2120, STAT 2119 (New Bag - Prov ider: Sheyla Chang, RN)2259 (Stopped - Provider: Sheyla Chang RN) documented in this encounter Additional Health Concerns Assessment Noted Time A fall risk assessment has been complete d for the patient 11/21/2020 2:30 PM EDT documented as of this encounter Care Teams Cork Tipper Relationship Specialty Start Date End Date Elmo Escobar MD PCP - General 10/18/20 01/05/23 documented as of this encounter
--- OUTSIDE RECORDS SUMMARY | 2024-02-03 15:17 | XMS_ITS | Encounter Summary ---
Author Organization Healthcare Address [address] [place] [address] Care Team Providers Care Pearl Fisherman Name Role Phone Elmo Escobar MD Primary Care Provider [phone] Reason for Visit * Reason Comments Abdominal Pain Encounter Details Date Type Department Care Team ([facility] Contact Info) Description 11/25/2022 8:58 AM EDT - 11/25/2022 11:32 AM EDT Emergency [facility] Emergency Department [address] [place] [address] George Tang MD [address] [place] [phone] Left upper quadrant abdominal pain (Primary Dx) [...] drink first t caleb in the morning (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) to steady your nerves or to [...] Sign Reading Time Taken Comments Blood Pressure 150/96 11/25/2022 11:10 AM EDT Pulse 84 11/25/2022 11:10 AM EDT Temperature 37.2 ??C (98.9 ??F) 11/25/2022 11:10 AM E DT Respiratory Rate 14 11/25/2022 11:10 AM EDT Oxygen Saturation 97% 11/25/2022 11:10 AM EDT Inhaled Oxygen Concentration - - Weight 106 kg (233 lb 11 oz) 11/25/2022 8:57 AM EDT Height - - Body Mass Index 38.89 11/18/2022 8:52 AM EDT documented in this encounter Discharge Instructions * Discharge Instructions* Darren Gallo MD - 11/25/2022 11:00 AM EDT At this time it is felt you are safe to be discharged. If new or worsening symptoms develop, pleasereturn to the emergency department for further evaluation. Please follow up with your primary care provider after discharge. As discussed, please keep your appointment with Gastroenterology. You have previously been referredto pain management. The contact number for this clinic is . documented in this encounter Medications at Time [...] needed for nausea or vomiting. 4 pancrelipase, Jzx-Zzmu-Amkr, (Creon) [id number] units capsule Take 1 capsule by mouth [...] Miscellaneous Notes * ED Provider Notes - Darren Gallo MD - 11/25/2022 8:50 AM EDT Images from the original note were not included. - HPI Chief Complaint Patient presents with Abdominal Pain Lila Mcnally is a 36 y.o. female with PMH of chronic pancreatitis, anxiety, fibromyalgia, duodenal ulcer and cholecystectomy (2011) due to gallstones who presents for evaluation of epigastric/left upper quadrant abdominal pain associated with nausea. [facility] for the same pain and elevated lipase at that time. CT imaging at that time negative for acute pathology. Patient states symptoms had improved and she was discharged home with medication regimen and return precautions. Patient states this morning pain became worse associated with nausea. Patient has had difficulty with oral intake. Patient denies vomiting, hematemesis, bloody stools, diarrhea, or numbness/weakness. No data recorded Patient History Past Medical History: Diagnosis Date Anxiety Arthritis Depression Fibromyalgia Gastric erosions 04/19/2021 GERD (gastroesophageal reflux disease) Hypertension Intentional overdose ([facility]) 12/20/2021 Nicotine dependence Obesity [...] for diarrhea and vomiting. Genitourinary: Negative for dysuria and hematuria. Musculoskeletal: Negative for arthralgias and back pain. Skin: Negative for color change and rash. Neurological: Negative for seizures and syncope. Psychiatric/Behavioral: Negative for agitation and confusion. All other systems reviewed and are negative. Physical Exam ED Triage Vitals [11/25/22 0857] Temp Heart Rate Resp BP 36.3 ??C (97.3 ??F) 95 16 (!) 158/104 SpO2 Temp src Heart Rate Source Patient Position 98 % -- -- -- BP Location FiO2 (%) -- -- Physical Exam Vitals and nursing note reviewed. Constitutional: General: She is not in acute distress. Appearance: She is not toxic-appearing. HENT: Head: Normocephalic and atraumatic. Nose: Nose normal. Mouth/Throat: Mouth: Mucous membranes are moist. Pharynx: Oropharynx is clear. No oropharyngeal exudate or posterior oropharyngeal erythema. Eyes: General: No scleral icterus. Extraocular Movements: Extraocular movements intact. Conjunctiva/sclera: Conjunctivae normal. Pupils: Pupils are equal, round, and reactive to light. Cardiovascular: Rate and Rhythm: Normal rate and regular rhythm. Pulses: Normal pulses. Heart sounds: No murmur heard. No friction rub. No gallop. Pulmonary: Effort: Pulmonary effort is normal. No respiratory distress. Breath sounds: Normal breath sounds. Abdominal: General: Abdomen is flat. There is no distension. Palpations: Abdomen is soft. There is no mass. Tenderness: There is abdominal tenderness in the left upper quadrant. Musculoskeletal: General: No swelling, tenderness or deformity. Normal range of motion. Cervical back: Normal range of motion and neck supple. No tenderness. Skin: General: Skin is warm and dry. Capillary Refill: Capillary refill takes less than 2 seconds. Findings: No lesion or rash. Neurological: General: No focal deficit present. Mental Status: She is alert and oriented to person, place, and time. Cranial Nerves: No cranial nerve deficit. Gait: Gait normal. Psychiatric: Mood and Affect: Mood normal. Behavior: Behavior normal. Thought Content: Thought content normal. ED Course & MDM Clinical Impressions as of 11/25/22 1126 Left upper quadrant abdominal pain - Medical Decision Making Lila Mcnally is a 36 y.o. female with PMH of chronic pancreatitis, anxiety, fibromyalgia, duodenal ulcer and cholecystectomy (2011) due to gallstones who presents for evaluation of epigastric/left upper quadrant abdominal pain associated with nausea. Patient was hemodynamically stable and nontoxic ap pearing on presentation. Differential diagnosis includes but is not limited to gastritis, pancreatitis, functional abdominal pain, fibromyalgia, among others. In order to explore this differential further, CBC, CMP, lipase, lactate, magnesium, beta hCG, were obtained. Given recent imaging and hospitalization, imaging not clinically indicated. Patient was given IV fluids, GI cocktail, Compazine, oxycodone for symptoms. Laboratory workup, personally interpreted not immediately actionable. Upon reassessment, patient states symptoms have improved and she is requesting discharge. Discussed with patient the risks of initiation of long-term narcotic pain regimen, and recommended follow-up with [facility] instead. Patient was given prescription for Phenergan. Patient has established appointment with Gastroenterology later this month. Patient has been referred to pain management clinic and was given the contact information at time of discharge. Patient voiced agreement with plan and patient was discharged home in stable condition. ED Prescriptions Medication Sig Dispense Start Date End Date Auth. Provider promethazine (Phenergan) 25 MG tablet Take 1 tablet (25 mg) by mouth every 6 (six) hours if needed for nausea or vomiting. 30 tablet 11/25/2022 12/25/2022 Darren Gallo MD Discharge Instructions At this time it is felt you are safe to be discharged. If new or worsening symptoms develop, pleasereturn to the emergency department for further evaluation. Please follow up with your primary care provider after discharge. As discussed, please keep your appointment with Gastroenterology. You have previously been referredto pain management. The contact number for this clinic is . Disposition Discharge Sign Off Checklist Clinical Impression: Complete ED Disposition: Complete - Darren Gallo MD Resident 11/25/22 1126 Cosigned by George Tang MD at 11/28/2022 2:04 PM EDT Associated attestation - George Tang MD - 11/28/2022 2:04 PM EDT I saw and evaluated the patient with the resident/fellow. I discussed the case with the resident/fellow and agree with the findings and plan as documented. * ED Triage Notes - Chiquita Dietrich RN - 11/25/2022 8:50 AM EDT Patient was admitted last week for pancreatitis. Was told to come back if she was compliant with discharge instructions. Describes the pain as throbbing and stabbing that radiates to her back. documented in this encounter Plan of Treatment Not on file documented as of this encounter Procedures Procedure Name Priority Date/Time Associated Diagnosis Comments LACTATE, VENOUS STAT 11/25/2022 9:30 AM EDT CBC WITH AUTO DIFFERENTIAL STAT 11/25/2022 9:30 AM EDT TEST QUALITATIVE PLASMA STAT 11/25/2022 9:30 AM EDT MAGNESIUM, PLASMA STAT 11/25/2022 9:3 0 AM EDT LIPASE, PLASMA STAT 11/25/2022 9:30 AM EDT COMPREHENSIVE METABOLIC PANEL, PLASMA STAT 11/25/2022 9:30 AM EDT documented in this encounter Results * hCG qualitative (11/25/2022 9:30 AM EDT) Pathologist [facility] Test Negative Negative 11/25/2022 10:30 AM EDT [facility] Blood Venous blood specimen / Unknown Venipuncture / Unknown 11/25/2022 9:30 AM EDT 11/25/2022 9:42 AM EDT Narrative [facility] - 11/25/2022 10:30 AM EDT Reference Range: Males and non- females: Negative. us George Tang MD LAB BLOOD ORDERABLES Final Result Performing Organization Address City/[facility]/ZIP Co de Phone Number [facility] [address] [place] [address] * Lactic acid, venous (11/25/2022 9:30 AM EDT) [facility] Lactate, Venous, Whole Blood 2.2 0.5 - 2.2 mmol/L LAB HEMATOLOGY METHOD 11/25/2022 9:44 AM EDT [facility] Blood Venous blood specimen / Unknown Venipuncture / Unknown 11/25/2022 9:30 AM EDT 11/25/2022 9:42 AM EDT George Tang MD LAB BLOOD ORDERABLES Final Result Performing Organization Address City/[facility] Co de Phone Number [facility] [address] [place] [address] * Lipase (11/25/2022 9:30 AM EDT) Pathologist [facility] Lipase, Plasma 32 19 - 63 U/L 11/25/2022 10:30 AM EDT [facility] Blood Venous blood specimen / Unknown Venipuncture / Unknown 11/25/2022 9:30 AM EDT 11/25/2022 9:42 AM EDT George Tang MD LAB BLOOD ORDERABLES Final Result Performing Organization Address [facility] Co de Phone Number [facility] [address] [place] [address] * Magnesium (11/25/2022 9:30 AM EDT) Pathologist [facility] Magnesium, Plasma 2.0 1.9 - 2.4 mg/dL 11/25/2022 10:30 AM EDT [facility] Blood Venous blood specimen / Unknown Venipuncture / Unknown 11/25/2022 9:30 AM EDT 11/25/2022 9:42 AM EDT George Tang MD LAB BLOOD ORDERABLES Final Result Performing Organization Address City/State/[facility] Co de Phone Number [facility] [address] [place], [place] [id number] * (ABNORMAL) CMP (11/25/2022 9:30 AM EDT) Glucose, Plasma 101(H) 74 - 99 mg/dL 11/25/2022 10:30 AM EDT [facility] BUN, Plasma 6(L) 7 - 21 mg/dL 11/25/2022 10:30 AM EDT [facility] Creatinine, Plasma 0.57(L) 0.60 - 1.10 mg/dL 11/25/2022 10:30 AM EDT [facility] BUN/Creatinine Ratio 11 11/25/2022 10:30 AM EDT [facility] Sodium, Plasma 136 136 - 145 mmol/L 11/25/2022 10:30 AM EDT [facility] Potassium, Plasma 4.2 3.7 - 4.8 mmol/L 11/25/2022 10:30 AM EDT [facility] Chloride, Plasma 102 97 - 107 mmol/L 11/25/2022 10:30 AM EDT [facility] CO2, Plasma 21(L) 22 - 29 mmol/L 11/25/2022 10:30 AM EDT [facility] Anion Gap 13 6 - 16 mmol/L 11/25/2022 10:30 AM EDT [facility] Total Calcium, Plasma 9.4 8.9 - 10.2 mg/dL 11/25/2022 10:30 AM EDT [facility] Total Protein 7.1 6.3 - 7.9 g/dL 11/25/2022 10:30 AM EDT [facility] Albumin, Plasma 4.3 3.5 - 5.2 g/dL 11/25/2022 10:30 AM EDT [facility] AST, Plasma 21 10 - 35 U/L 11/25/2022 10:30 AM EDT [facility] Comment:Hemolyzed, result ma y be falsely increased. ALT, Plasma 25 10 - 35 U/L 11/25/2022 10:30 AM EDT [facility] Alkaline Phosphatase, Plasma 97 35 - 104 U/L 11/25/2022 10:30 AM EDT [facility] Total Bilirubin, Plasma 0.3 0.2 - 1.1 mg/dL 11/25/2022 10:30 AM EDT [facility] eGFRcr 121.7 mL/min/1.7 3m*2 11/25/2022 10:30 AM EDT [facility] Comment:Reported eGFRcr in m L/min/1.73m2 is based the CKD-EPI 2020 equation that does not use a race coefficient. Blood Venous blood specimen / Unknown Venipuncture / Unknown 11/25/2022 9:30 AM EDT 11/25/2022 9:42 AM EDT George Tang MD LAB BLOOD ORDERABLES Final Result [facility] [address] [place] [address] * (ABNORMAL) CBC w/diff (11/25/2022 9:30 AM EDT) WBC Count 6.17 3.70 - 10.30 10*3/uL LAB HEMATOLOGY METHOD 11/25/2022 9:41 AM EDT [facility] RBC Count 4.79 3.90 - 5.20 10*6/uL LAB HEMATOLOGY METHOD 11/25/2022 9:41 AM EDT [facility] HGB 12.6 11.2 - 15.7 g/dL LAB HEMATOLOGY METHOD 11/25/2022 9:41 AM EDT [facility] HCT 39.1 34.0 - 45.0 % LAB HEMATOLOGY METHOD 11/25/2022 9:41 AM EDT [facility] Platelet Count 248 155 - 369 10*3/uL LAB HEMATOLOGY METHOD 11/25/2022 9:41 AM EDT [facility] MCV 82 79 - 98 fL LAB HEMATOLOGY METHOD 11/25/2022 9:41 AM EDT [facility] MCH 26.3 26.0 - 32.0 pg LAB HEMATOLOGY METHOD 11/25/2022 9:41 AM EDT [facility] MCHC 32.2 30.7 - 35.5 g/dL LAB HEMATOLOGY METHOD 11/25/2022 9:41 AM EDT [facility] RDW 16.2(H) 11.5 - 14.5 % LAB HEMATOLOGY METHOD 11/25/2022 9:41 AM EDT [facility] MPV 9.8 8.8 - 12.5 fL LAB HEMATOLOGY METHOD 11/25/2022 9:41 AM EDT [facility] nRBC 0.0 <=0.0 per 100 WBCs LAB HEMATOLOGY METHOD 11/25/2022 9:41 AM EDT [facility] Differential Type Automated LAB HEMATOLOGY METHOD 11/25/2022 9:41 AM EDT [facility] Neutrophils % 68.0 % LAB HEMATOLOGY METHOD 11/25/2022 9:41 AM EDT [facility] Lymphocytes % 25.0 % LAB HEMATOLOGY METHOD 11/25/2022 9:41 AM EDT [facility] Monocytes % 5.0 % LAB HEMATOLOGY METHOD 11/25/2022 9:41 AM EDT [facility] Eosinophils % 1.0 % LAB HEMATOLOGY METHOD 11/25/2022 9:41 AM EDT [facility] Basophils % 1.0 % LAB HEMATOLOGY METHOD 11/25/2022 9:41 AM EDT [facility] Immature Granulocytes % 0.0 % LAB HEMATOLOGY METHOD 11/25/2022 9:41 AM EDT [facility] Neutrophils Absolute 4.19 1.60 - 6.10 10*3/uL LAB HEMATOLOGY METHOD 11/25/2022 9:41 AM EDT [facility] Lymphocytes Absolute 1.55 1.20 - 3.90 10*3/uL LAB HEMATOLOGY METHOD 11/25/2022 9:41 AM EDT [facility] Monocytes Absolute 0.32 0.30 - 0.90 10*3/uL LAB HEMATOLOGY METHOD 11/25/2022 9:41 AM EDT [facility] Eosinophils Absolute 0.06 0.00 - 0.50 10*3/uL LAB HEMATOLOGY METHOD 11/25/2022 9:41 AM EDT [facility] Basophils Absolute 0.03 0.00 - 0.10 10*3/uL LAB HEMATOLOGY METHOD 11/25/2022 9:41 AM EDT [facility] Immature Granulocytes Absolute 0.02 0.00 - 0.06 10*3/uL LAB HEMATOLOGY METHOD 11/25/2022 9:41 AM EDT [facility] Blood Venous blood specimen / Unknown Venipuncture / Unknown 11/25/2022 9:30 AM EDT 11/25/2022 9:37 AM EDT Narrative [facility] - 11/25/2022 9:41 AM EDT Therapeutic decision making should be based on absolute values, rather than percentages. us George Tang MD LAB BLOOD ORDERABLES Final Result [facility] [address] [place] [address] documented in this encounter Visit Diagnoses Diagnosis Left upper quadrant abdominal pain- Primary documented in this encounter Administered Medications Inactive Administered Medications - up to 3 most recent administrations Medication Order MAR Action Action Date Dose Rate Site gi cocktail oral solution 30 mL 30 mL, Oral, Once, 1 dose, On Thu11/25/22 at 0920, STAT Given 11/25/2022 9:35 AM EDT 30 mL lactated Ringer's infusion 1,000 mL 1,000 mL, Intravenous, Once, 1 dose, On Thu11/25/22 at 0920, STAT New Bag 11/25/2022 9:36 AM EDT 1,000 mL oxyCODONE (Roxicodone) immediate release tablet 10 mg 10 mg, Oral, Once, 1 dose, On Thu11/25/22 at 1115, STAT Given 11/25/2022 11:32 AM EDT 10 mg oxyCODONE (Roxicodone) immediate release tablet 5 mg 5 mg, Oral, Once, 1 dose, On Thu11/25/22 at 0920, STAT Given 11/25/2022 9:36 AM EDT 5 mg oxyCODONE (Roxicodone) immediate release tablet 5 mg 5 mg, Oral, Once, 1 dose, On Thu11/25/22 at 1005, STAT Given 11/25/2022 10:13 AM EDT 5 mg prochlorperazine (Compazine) tablet 10 mg 10 mg, Oral, Once, 1 dose, On Thu11/25/22 at 0920, Routine Given 11/25/2022 9:36 AM EDT 10 mg promethazine (Phenergan) injection 12.5 mg 12.5 mg, Intravenous, Once, 1 dose, On Thu11/25/22 at 1005, STAT Given 11/25/2022 10:14 AM EDT 12.5 mg documented in this encounter Active and Recently Administered Medications Times are shown in EDT. Scheduled Medication Order 11/23/2022 11/24/2022 11/25/2022 capsaicin (Zostrix-HP) 0.075 % topical cream 1 Application Topical, Once, 1 dose, On Thu11/25/22 at 0935, Routine 1054 (Not Given - Pr ovider: Silvestre Caban RN - Reason: Hold for condition: must add comment ) gi cocktail oral solution 30 mL (COMPLETED) 30 mL, Oral, Once, 1 dose, On Thu11/25/22 at 0920, STAT 0935 (Given - Provid er: Silvestre Caban RN) lactated Ringer's infusion 1,000 mL (COMPLETED) 1,000 mL, Intravenous, Once, 1 dose, On Thu11/25/22 at 0920, STAT 0936 (New Bag - Prov ider: Silvestre Caban RN) oxyCODONE (Roxicodone) immediate release tablet 10 mg (COMPLETED) 10 mg, Oral, Once, 1 dose, On Thu11/25/22 at 1115, STAT 1132 (Given - Provid er: Silvestre Caban RN) oxyCODONE (Roxicodone) immediate release tablet 5 mg (COMPLETED) 5 mg, Oral, Once, 1 dose, On Thu11/25/22 at 0920, STAT 0936 (Given - Provid er: Silvestre Caban RN) oxyCODONE (Roxicodone) immediate release tablet 5 mg (COMPLETED) 5 mg, Oral, Once, 1 dose, On Thu11/25/22 at 1005, STAT 1013 (Given - Provid er: Silvestre Caban RN) prochlorperazine (Compazine) tablet 10 mg (COMPLETED) 10 mg, Oral, Once, 1 dose, On e 11/25/22 at 0920, Routine 0936 (Given - Provid er: Silvestre Cabna RN) promethazine (Phenergan) injection 12.5 mg (COMPLETED) 12.5 mg, Intravenous, Once, 1 dose, On Thu11/25/22 at 1005, STAT 1014 (Given - Provid er: Silvestre Caban RN) documented in this encounter Additional Health Concerns Assessment Noted Time A fall risk assessment has been complete d for the patient 11/21/2020 2:30 PM EDT documented as of this encounter Care Teams Pearl Fisherman Relationship Specialty Start Date End Date Elmo Escobar MD PCP - General 10/18/20 01/05/23 documented as of this encounter
--- OUTSIDE RECORDS SUMMARY | 2024-02-03 15:17 | XMS_ITS | Encounter Summary ---
Author Organization Healthcare Address [address] [place] [address] Care Team Providers Care Casting Machine Control Board Operator Name Role Phone Elom Escobar MD Primary Care Provider [phone] Reason for Visit * Auth/Cert (Routine) Specialty Diagnoses / Procedures Referred By Contmary t Referred To Contact Diagnoses Acute on chronic pancreatitis (CMS/HCC) Usha Bajwa MD [address] [place] [id number] Phone: tel: fax: [facility] Inpatient [address] [place] [address] Phone: tel: Referral ID Status Reason Start Date Expiration Date Visits Re quested Visits Authorized [id number] 1 1 Encounter Details Date Type Department Care Team (Latest Contact Info) Description 12/24/2022 10:22 AM EDT - 12/24/2022 2:07 PM EDT Emergency [facility] Emergency Department [address] [place] [address] Left upper quadrant abdominal pain (Primary Dx); Nausea and vomiting, unspecified vomiting type; Traumatic ecchymosis of right forearm, initial encounter; Sprain of metatarsophalangeal joint of great toe, left, initial encounter Discharge Disposition: Home or Self [...] drink first t caleb in the morning (EYE-HUMAN RESOURCES OPERATIONS SPECIALIST) to steady your nerves or to [...] Sign Reading Time Taken Comments Blood Pressure 153/99 12/24/2022 1:25 PM EDT Pulse 99 12/24/2022 1:25 PM EDT Temperature 36.5 ??C (97.7 ??F) 12/24/2022 1:25 PM ED T Respiratory Rate 18 12/24/2022 1:25 PM EDT Oxygen Saturation 98% 12/24/2022 1:25 PM EDT Inhaled Oxygen Concentration - - Weight 106 kg (233 lb 11 oz) 12/24/2022 10:20 AM EDT Height - - Body Mass Index 38.89 12/06/2022 10:07 AM EDT documented in this encounter Discharge Instructions * Discharge Instructions* Neli Manuel PA - 12/24/2022 1:51 PM EDT Follow-up as soon as possible with your primary care provider, pain specialist, and vaccine key customer leader. Follow clear liquid diet until symptoms improve. Return to the nearest emergency department with any worsening or new symptoms. Thank you for this opportunity to provide your care. * Attachments The following attachments cannot be sent through Care Everywhere. * Gastritis or Ulcer (No Antibiotic Treatment) (Citizen Of [place]) * Pancreatitis, Chronic, Discharge Instructions for (Citizen Of [place]) documented in this encounter Medications at Time [...] needed for nausea or vomiting. 4 pancrelipase, Enb-Muod-Hfkh, (Creon) [id number] units capsule Take 1 capsule by mouth [...] Miscellaneous Notes * ED Provider Notes - Neli Manuel PA - 12/24/2022 10:03 AM EDT Images from the original note were not included. - HPI No chief complaint on file. Lila Mcnally is a 37 y.o. female w/ h/o HTN, GERD, chronic pancreatitis, gastric erosions, and fibromyalgia who presents to the ED with LUQ pain, right arm, and left foot pain since last night. She reports that she was at a [employer] republican last night, had several beers and 1 shot of liquor, and subsequently developed severe left upper quadrant pain. Later she was sleeping with her 3 children and accidentally fell out of the bed, injuring her right forearm and left great toe. She notes that she is staying at a friend's house because the republican and left all of her home medications back in [facility] and therefore she does not have her oxycodone. She does report that she took an oral Zofran this morning. She is had 2 episodes of vomiting this morning with nausea, she feels this is consistentwith prior flares of pancreatitis. Jo Coma Scale Score: 15 Patient History Past Medical History: Diagnosis Date Anxiety Arthritis Depression Fibromyalgia Gastric erosions 04/19/2021 GERD (gastroesophageal reflux disease) Hypertension Intentional overdose ([facility]) 12/20/2021 Nicotine dependence [...] of Systems Gastrointestinal: Positive for abdominal pain, nausea and vomiting. Musculoskeletal: Positive for arthralgias. Skin: Positive for color change (bruise to right forearm). All other systems reviewed and are negative. Physical Exam ED Triage Vitals [12/24/22 1020] Temp Heart Rate Resp BP 36.7 ??C (98.1 ??F) (!) 125 16 (!) 145/94 SpO2 Temp Source Heart Rate Source Patient [...] Rate and Rhythm: Regular rhythm. Tachycardia present. Pulses: Normal pulses. Heart sounds: Normal heart sounds. Pulmonary: Effort: Pulmonary effort is normal. No respiratory distress. Breath sounds: Normal breath sounds. Abdominal: General: There is no distension. Palpations: Abdomen is soft. Tenderness: There is abdominal tenderness (epigastric and LUQ). There is guarding. Musculoskeletal: General: Swelling (over left first MTP joint), tenderness and signs of injury present. Cervical back: Neck supple. Comments: Pain with movement of left great toe. Full ROM present to right elbow, no bony tenderness, distal pulses and sensation intact. Skin: General: Skin is warm and dry. Findings: Bruising (to proximal right forearm. No surrounding bony tenderness) present. Neurological: Mental Status: She is alert and oriented to person, place, and time. Psychiatric: Mood and Affect: Mood normal. Behavior: Behavior normal. ED Course & MDM Clinical Impressions as of 12/24/22 1754 Left upper quadrant abdominal pain Nausea and vomiting, unspecified vomiting type Traumatic ecchymosis of right forearm, initial encounter Sprain of metatarsophalangeal joint of great toe, left, initial encounter - Medical Decision Making Care provided by Yasemin Manuel PA-C This is a 37-year-old female with history of chronic pancreatitis, gastritis presenting for evaluation of pain to her right forearm and left great toe, as well as severe epigastric and left upper quadrant pain with nausea and vomiting discuss this morning. She states that this feels consistent withflares of her pancreatitis, that she feels was exacerbated by alcohol use last night at [employer] republican. She reports she is staying at a friend's house and either left her oxycodone at home, or it was stolen from her friend's house. On initial exam, patient is tachycardic but hemodynamically stable, nontoxic in appearance, in no acute distress. On exam her abdomen is soft and nondistended, but there is tenderness primarily to the left upper quadrant. Differential includes acute on chronic gastritis, acute on chronic pancreatitis, drug-seeking behavior, gastroenteritis, among others. Per independent chart review, patient is seen frequently at this facility for similar symptoms. Lab work is overall unremarkable, she does have a mildly elevated lipase at 65. Patient has received numerous CT scans of her abdomen over the past several years, given that symptoms are not different than prior flares in her abdomen is non peritonitic, with largely unremarkable lab workup, will defer advanced imaging at this time. X-rays obtained of her left foot with no acute fracture or dislocation noted. Macario seals does have pain and tenderness over the left 1st MTP, I suspect she sprained the joint. She was provided with a hard-soled shoe for support and comfort, counseled on appropriate use of [id number] pain control, rice therapy. She has bruising of her right forearm but no bony tenderness, full range of motion and sensation, no imaging warranted at this time. Patient reported no improvement after 4 mg morphine, noted it typically takes 6-8 mg to help her pain. Additional 4 was given with somefurther improvement. Per chart review, patient last received a prescription for 1 tablet [place] 5 mgon 11/03/2022, 12 tablets of 50 mg tramadol on 11/05/2022, no narcotics or pain medication dispensed since then. I asked patient about this, as she noted she would left her oxycodone at home, and it does not seem per chart review that she has an active prescription. She was unable to fully verbalize why she had current oxycodone, and had conflicting explanations about who was prescribing her curre nt pain medications. I did inform her that it was extremely important that she comply with outpatient GI, pain management, and primary care appointments to manage her pain regimen, and we would be unable to prescribe any home opiates today. She was given a dose of 10 mg oxycodone and subsequently passed by mouth challenge. She then notes that she should be able to see her primary care provider tomorrow to receive a new prescription for oxycodone, and if she is unable to, she plans to return to the emergency department for further pain management. I did inform her that if she needs continuous pain management she may require admission for severe exacerbation, if she is just needing chronic disease management she needs to comply with her outpatient appointments. She states understanding. Patient remains hemodynamically stable with no further questions, and is suitable for discharge at thistime with return precautions as outlined in discharge instructions. ED Prescriptions None Discharge Instructions Follow-up as soon as possible with your primary care provider, pain specialist, and vaccine key customer leader. Follow clear liquid diet until symptoms improve. Return to the nearest emergency department with any worsening or new symptoms. Thank you for this opportunity to provide your care. Discharge References/Attachments Gastritis or Ulcer (No Antibiotic Treatment) (Citizen Of [place]) Pancreatitis, Chronic, Discharge Instructions for (Citizen Of [place]) Disposition Discharge AVS (Printed 12/24/2022) Sign Off Checklist Clinical Impression: Complete ED Disposition: Complete - Neli Manuel PA 12/24/22 4 Cosigned by Kayla Ramos MD at 12/24/2022 5:57 PM EDT Associated attestation - Kayla Ramos MD - 12/24/2022 5:57 PM EDT The patient was seen only by Advanced Practice Provider (AJAY), and care was reviewed with me. * ED Triage Notes - Andrew Gonzalez, RN - 12/24/2022 10:03 AM EDT Pt with c/o luq abd pain after drinking alcohol last night, hx of pancreatitis. Pt also states she fell out of the bed last night, c/o right arm and left foot pain. documented in this encounter Plan of Treatment Not on file documented as of this encounter Procedures Procedure Name Priority Date/Time Associated Diagnosis Comments MORPHOLOGY STAT 12/24/2022 12:19 PM EDT CBC WITH AUTO DIFFERENTIAL STAT 12/24/2022 12:19 PM EDT TEST QUALITATIVE PLASMA STAT 12/24/2022 12:19 PM EDT LIPASE, PLASMA STAT 12/24/2022 12:19 PM EDT COMPREHENSIVE METABOLIC PANEL, PLASMA STAT 12/24/2022 12:19 PM EDT XR FOOT LEFT 3+ VIEWS STAT 12/24/2022 11:11 AM EDT documented in this encounter Results * Morphology (12/24/2022 12:19 PM EDT) RBC Morphology Slide Reviewed LAB HEMATOLOGY METHOD 12/24/2022 1:07 PM EDT [facility] Platelet Estimate Platelet count not valid due to clumping. Appears decreased. LAB HEMATOLOGY METHOD 12/24/2022 1:07 PM EDT [facility] Blood Venous blood specimen / Unknown Venipuncture / Unknown 12/24/2022 12:19 PM EDT 12/24/2022 12:24 PM EDT Neli Ash Manuel PA LAB BLOOD ORDERABLES Carolina l Result Performing Organization Address [facility] Co de Phone Number [facility] [address] [place] [address] * hCG qualitative (12/24/2022 12:19 PM EDT) Test Negative Negative 12/24/2022 12:56 PM EDT [facility] Blood Venous blood specimen / Unknown Venipuncture / Unknown 12/24/2022 12:19 PM EDT 12/24/2022 12:24 PM EDT Narrative [facility]ALTH[facility]ARE LAB - 12/24/2022 12:56 PM EDT Reference Range: Males and non- females: Negative. [employer] Nelimary NAJERA LAB BLOOD ORDERABLES Carolina l Result Performing Organization Address [facility]/ZIP Co de Phone Number [facility] [address] [place] [address] * (ABNORMAL) Lipase (12/24/2022 12:19 PM EDT) Lipase, Plasma 65(H) 19 - 63 U/L 12/24/2022 12:56 PM EDT [facility] Blood Venous blood specimen / Unknown Venipuncture / Unknown 12/24/2022 12:19 PM EDT 12/24/2022 12:24 PM EDT Process System [employer] Ash Manuel PA LAB BLOOD ORDERABLES Carolina l Result [facility] [address] [place] [address] * (ABNORMAL) CMP (12/24/2022 12:19 PM EDT) Glucose, Plasma 99 74 - 99 mg/dL 12/24/2022 12:56 PM EDT [facility] BUN, Plasma 7 7 - 21 mg/dL 12/24/2022 12:56 PM EDT [facility] Creatinine, Plasma 0.62 0.60 - 1.10 mg/dL 12/24/2022 12:56 PM EDT [facility] BUN/Creatinine Ratio 11 12/24/2022 12:56 PM EDT [facility] Sodium, Plasma 139 136 - 145 mmol/L 12/24/2022 12:56 PM EDT [facility] Potassium, Plasma 3.8 3.7 - 4.8 mmol/L 12/24/2022 12:56 PM EDT [facility] Chloride, Plasma 105 97 - 107 mmol/L 12/24/2022 12:56 PM EDT [facility] CO2, Plasma 21(L) 22 - 29 mmol/L 12/24/2022 12:56 PM EDT [facility] Anion Gap 13 6 - 16 mmol/L 12/24/2022 12:56 PM EDT [facility] Total Calcium, Plasma 9.3 8.9 - 10.2 mg/dL 12/24/2022 12:56 PM EDT [facility] Total Protein 6.6 6.3 - 7.9 g/dL 12/24/2022 12:56 PM EDT [facility] Albumin, Plasma 4.1 3.5 - 5.2 g/dL 12/24/2022 12:56 PM EDT [facility] AST, Plasma 34 10 - 35 U/L 12/24/2022 12:56 PM EDT [facility] ALT, Plasma 46(H) 10 - 35 U/L 12/24/2022 12:56 PM EDT [facility] Alkaline Phosphatase, Plasma 106(H) 35 - 104 U/L 12/24/2022 12:56 PM EDT [facility] Total Bilirubin, Plasma 0.2 0.2 - 1.1 mg/dL 12/24/2022 12:56 PM EDT [facility] eGFRcr 118.5 mL/min/1.7 3m*2 12/24/2022 12:56 PM EDT [facility] Comment:Reported eGFRcr in m L/min/1.73m2 is based the CKD-EPI 2020 equation that does not use a race coefficient. Blood Venous blood specimen / Unknown Venipuncture / Unknown 12/24/2022 12:19 PM EDT 12/24/2022 12:24 PM EDT us Neli NAJERA LAB BLOOD ORDERABLES Carolina macias Result [facility] [address] [place] [phone] * (ABNORMAL) CBC w/diff (12/24/2022 12:19 PM EDT) WBC Count 6.40 3.70 - 10.30 10*3/uL LAB HEMATOLOGY METHOD 12/24/2022 1:07 PM EDT [facility] RBC Count 4.58 3.90 - 5.20 10*6/uL LAB HEMATOLOGY METHOD 12/24/2022 1:07 PM EDT [facility] HGB 12.1 11.2 - 15.7 g/dL LAB HEMATOLOGY METHOD 12/24/2022 1:07 PM EDT [facility] HCT 37.1 34.0 - 45.0 % LAB HEMATOLOGY METHOD 12/24/2022 1:07 PM EDT [facility] Platelet Count LAB HEMATOLOGY METHOD 12/24/2022 1:07 PM EDT [facility] Comment:Platelet count not v alid due to clumping. Appears decreased. MCV 81 79 - 98 fL LAB HEMATOLOGY METHOD 12/24/2022 1:07 PM EDT [facility] MCH 26.4 26.0 - 32.0 pg LAB HEMATOLOGY METHOD 12/24/2022 1:07 PM EDT [facility] MCHC 32.6 30.7 - 35.5 g/dL LAB HEMATOLOGY METHOD 12/24/2022 1:07 PM EDT [facility] RDW 15.6(H) 11.5 - 14.5 % LAB HEMATOLOGY METHOD 12/24/2022 1:07 PM EDT [facility] MPV LAB HEMATOLOGY METHOD 12/24/2022 1:07 PM EDT [facility] Comment:Not Measured nRBC 0.0 <=0.0 per 100 WBCs LAB HEMATOLOGY METHOD 12/24/2022 1:07 PM EDT [facility] Differential Type Automated LAB HEMATOLOGY METHOD 12/24/2022 1:07 PM EDT [facility] Neutrophils % 61.0 % LAB HEMATOLOGY METHOD 12/24/2022 1:07 PM EDT [facility] Lymphocytes % 30.0 % LAB HEMATOLOGY METHOD 12/24/2022 1:07 PM EDT [facility] Monocytes % 6.0 % LAB HEMATOLOGY METHOD 12/24/2022 1:07 PM EDT [facility] Eosinophils % 1.0 % LAB HEMATOLOGY METHOD 12/24/2022 1:07 PM EDT [facility] Basophils % 1.0 % LAB HEMATOLOGY METHOD 12/24/2022 1:07 PM EDT [facility] Immature Granulocytes % 1.0 % LAB HEMATOLOGY METHOD 12/24/2022 1:07 PM EDT [facility] Neutrophils Absolute 3.99 1.60 - 6.10 10*3/uL LAB HEMATOLOGY METHOD 12/24/2022 1:07 PM EDT [facility] Lymphocytes Absolute 1.92 1.20 - 3.90 10*3/uL LAB HEMATOLOGY METHOD 12/24/2022 1:07 PM EDT [facility] Monocytes Absolute 0.36 0.30 - 0.90 10*3/uL LAB HEMATOLOGY METHOD 12/24/2022 1:07 PM EDT [facility] Eosinophils Absolute 0.05 0.00 - 0.50 10*3/uL LAB HEMATOLOGY METHOD 12/24/2022 1:07 PM EDT [facility] Basophils Absolute 0.05 0.00 - 0.10 10*3/uL LAB HEMATOLOGY METHOD 12/24/2022 1:07 PM EDT [facility] Immature Granulocytes Absolute 0.03 0.00 - 0.06 10*3/uL LAB HEMATOLOGY METHOD 12/24/2022 1:07 PM EDT [facility] Blood Venous blood specimen / Unknown Venipuncture / Unknown 12/24/2022 12:19 PM EDT 12/24/2022 12:24 PM EDT Narrative [facility] - 12/24/2022 1:07 PM EDT Therapeutic decision making should be based on absolute values, rather than percentages. us Neli NAJERA LAB BLOOD ORDERABLES Carolina macias Result [facility] [address] [place] [address] * XR Foot Left 3+ Views (12/24/2022 11:11 AM EDT) Anatomical Region Laterality Modality Lower Extremities, Foot Left Digital Radiography Impressions 12/24/2022 11:56 AM EDT No acute osseous or articular abnormality. CRITICAL RESULT: ?? No. COMMUNICATION: Per this written report. By electronically signing this report, I, the attending physician, attest that I have personally reviewed the images/data for the above examination(s) and agree with the final edited report. Drafted by Kulwinder Leon MD on 12/24/2022 11:36 AM Final report signed by Reshma Coombs MD on 12/24/2022 11:56 AM Narrative 12/24/2022 11:56 AM EDT CLINICAL INDICATION: fall off bed, pain at first MTP TECHNIQUE: XR FOOT LEFT 3+ VIEWS COMPARISON: None. FINDINGS: No acute fracture, dislocation, or subluxation. The tarsal bones are in appropriate position and alignment. Mild soft tissue reticulation over the lateral aspect of the proximal foreleg. Procedure Note Reshma Coombs MD - 12/24/2022 CLINICAL INDICATION: fall off bed, pain at first MTP TECHNIQUE: XR FOOT LEFT 3+ VIEWS COMPARISON: None. FINDINGS: No acute fracture, dislocation, or subluxation. The tarsal bones are inappropriate position and alignment. Mild soft tissue reticulation over thelateral aspect of the proximal foreleg. IMPRESSION: No acute osseous or articular abnormality. CRITICAL RESULT: No. COMMUNICATION: Per this written report. By electronically signing this report, I, the attending physician, attestthat I have personally reviewed the images/data for the aboveexamination(s) and agree with the final edited report. Drafted by Kulwinder Leon MD on 12/24/2022 11:36 AM Final report signed by Reshma Coombs MD on 12/24/2022 11:56 AM us Neli NAJERA IMG XR PROCEDURES Final R esult documented in this encounter Visit Diagnoses Diagnosis Left upper quadrant abdominal pain- Primary Nausea and vomiting, unspecified vomiting type Traumatic ecchymosis of right forearm, initial encounter Sprain of metatarsophalangeal joint of great toe, left, initial encounter documented in this encounter Administered Medications Inactive Administered Medications - up to 3 most recent administrations Medication Order MAR Action Action Date Dose Rate Site famotidine PF (Pepcid) injection 20 mg 20 mg, Intravenous, Once, 1 dose, On Thu12/24/22 at 1050, STAT Given 12/24/2022 12:09 PM EDT 20 mg lactated Ringer's infusion 1,000 mL 1,000 mL, Intravenous, Once, 1 dose, On Thu12/24/22 at 1050, STAT New Bag 12/24/2022 12:09 PM EDT 1,000 mL morphine PF 4 mg 4 mg, Intravenous, Once, 1 dose, On Thu12/24/22 at 1050, STAT Given 12/24/2022 12:09 PM EDT 4 mg morphine PF 4 mg 4 mg, Intravenous, Once, 1 dose, On Thu12/24/22 at 1225, STAT Given 12/24/2022 12:44 PM EDT 4 mg ondansetron (Zofran) injection 4 mg 4 mg, Intravenous, Once, 1 dose, On Thu12/24/22 at 1050, STAT Given 12/24/2022 12:09 PM EDT 4 mg oxyCODONE (Roxicodone) immediate release tablet 10 mg 10 mg, Oral, Once, 1 dose, On Thu12/24/22 at 1340, STAT Given 12/24/2022 2:01 PM EDT 10 mg sucralfate (Carafate) 1 GM/10ML suspension 1 g 1 g, Oral, Once, 1 dose, On Thu12/24/22 at 1050, STAT Given 12/24/2022 11:50 AM EDT 1 g documented in this encounter Active and Recently Administered Medications Times are shown in EDT. Scheduled Medication Order 12/22/2022 12/23/2022 12/24/2022 famotidine PF (Pepcid) injection 20 mg (COMPLETED) 20 mg, Intravenous, Once, 1 dose, On Thu12/24/22 at 1050, STAT 1209 (Given - Provid er: Dipika Ball RN - Comment: Inability to obtain PIV access) lactated Ringer's infusion 1,000 mL (COMPLETED) 1,000 mL, Intravenous, Once, 1 dose, On Thu12/24/22 at 1050, STAT 1209 (New Bag - Prov ider: Dipika Ball RN)1401 (Stopped - Provider: Dorys Donovan RN) morphine PF 4 mg (COMPLETED) 4 mg, Intravenous, Once, 1 dose, On Thu12/24/22 at 1050, STAT 1209 (Given - Provid er: Dipika Ball RN) morphine PF 4 mg (COMPLETED) 4 mg, Intravenous, Once, 1 dose, On Thu12/24/22 at 1225, STAT 1244 (Given - Provid er: Dorys Donovan RN) ondansetron (Zofran) injection 4 mg (COMPLETED) 4 mg, Intravenous, Once, 1 dose, On Thu12/24/22 at 1050, STAT 1209 (Given - Provid er: Dipika Ball RN) oxyCODONE (Roxicodone) immediate release tablet 10 mg (COMPLETED) 10 mg, Oral, Once, 1 dose, On Thu12/24/22 at 1340, STAT 1401 (Given - Provid er: Dorys Donovan RN) sucralfate (Carafate) 1 GM/10ML suspension 1 g (COMPLETED) 1 g, Oral, Once, 1 dose, On Thu12/24/22 at 1050, STAT 1150 (Given - Provid er: Dorys Donovan RN) documented in this encounter Additional Health Concerns Assessment Noted Time A fall risk assessment has been complete d for the patient 11/21/2020 2:30 PM EDT documented as of this encounter Care Teams Casting Machine Control Board Operator Relationship Specialty Start Date End Date Elmo Escobar MD PCP - General 10/18/20 01/05/23 documented as of this encounter
--- OUTSIDE RECORDS SUMMARY | 2024-02-03 15:17 | XMS_ITS | Encounter Summary ---
Author Organization Healthcare Address [address] [place] [address] Care Team Providers Care Ultrasonic Seaming Machine Operator Name Role Phone Elmo Escobar MD Primary Care Provider [phone] Reason for Visit * Reason Comments Abdominal Pain Encounter Details Date Type Department Care Team (Late st Contact Info) Description 12/04/2022 9:08 AM EDT - 12/04/2022 12:16 PM EDT Emergency [facility] Emergency Department [address] [place] [address] Generalized abdominal pain (Primary Dx) [...] drink first t caleb in the morning ([employer]) to steady your nerves or to get [...] Sign Reading Time Taken Comments Blood Pressure 130/82 12/04/2022 12:16 PM EDT Pulse 79 12/04/2022 12:16 PM EDT Temperature 36.6 ??C (97.8 ??F) 12/04/2022 12:16 PM E DT Respiratory Rate 18 12/04/2022 12:16 PM EDT Oxygen Saturation 98% 12/04/2022 12:16 PM EDT Inhaled Oxygen Concentration - - Weight 107 kg (234 lb 12.6 oz) 12/04/2022 9:06 A M EDT Height 165.1 cm (5' 5 ) 12/04/2022 9:06 AM EDT Body Mass Index 39.07 12/04/2022 9:06 AM EDT documented in this encounter Discharge Instructions * Discharge Instructions* Ирина Oliver APRN - 12/04/2022 12:09 PM EDT You were seen in the emergency department today and evaluated for abdominal pain. I believe that the symptoms your experiencing are likely secondary to your chronic abdominal pain as your labs and urine are within normal limits. Please follow-up with your PCP for ongoing management return to the EDwith any signs and symptoms of worsening condition. * Attachments The following attachments cannot be sent through Care Everywhere. * Abdominal Pain, Adult (Burmese) documented in this encounter Medications at [...] needed for nausea or vomiting. 4 pancrelipase, Jti-[id number]-Ykhd, (Creon) [id number] units capsule Take 1 capsule by mouth [...] Notes * ED Provider Notes - Ирина Oliver, ORANGE PICKER - 12/04/2022 8:59 AM EDT Images from the original note were not included. HPI Chief Complaint Patient presents with Abdominal Pain Lila Mcnally is a 36-year old female with a PMH of anxiety, depression, fibromyalgia, GERD, chronic pancreatitis, presents the emergency department for evaluation of left upper quadrant abdominal pain. According to the patient her pain began yesterday however became more severe and stabbing in nature in addition to nausea and vomiting early this morning at approximately 4:00 a.m.. She has had a few episodes of diarrhea as well, however this is consistent for a flare of her pancreatitis. At that time, patient took her home medications including 5 mg of oral oxycodone, 4 mg of sublingual Zofran,1 g of Carafate, and 20 mg of Pepcid with no relief which is what prompted her to seek medical atten tion today. Patient notes that this is consistent with the previous flare for her. Patient was supposed to follow-up with pain management however for request got denied therefore she is pending an additional referral. Patient states that she used her last dose of oxycodone this morning. Patient denies chest pain, shortness of breath, recent travel, recent sick contacts, constipation. 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 by: Patient curriculum and instruction specialist used: No No data recorded Patient History Past Medical History: Diagnosis Date Anxiety Arthritis Depression Fibromyalgia Gastric erosions 04/19/2021 GERD (gastroesophageal reflux disease) Hypertension Intentional overdose ([facility]) 12/20/2021 Nicotine dependence Obesity Pancreatitis Past Surgical [...] of Systems Constitutional: Positive for appetite change (decreased). Negative for chills, fatigue and fever. HENT: Negative for congestion, ear pain, sore throat, trouble swallowing and voice change. Eyes: Negative for pain and visual disturbance. Respiratory: Negative for cough and shortness of breath. Cardiovascular: Negative for chest pain and palpitations. Gastrointestinal: Positive for abdominal pain, diarrhea, nausea and vomiting. Negative for constipation. Genitourinary: Negative for dysuria, flank pain, frequency, hematuria and urgency. Musculoskeletal: Negative for arthralgias, back pain, neck pain and neck stiffness. Skin: Negative for color change and rash. Neurological: Negative for dizziness, seizures, syncope, weakness, light- headedness and headaches. Psychiatric/Behavioral: Negative for confusion. All other systems reviewed and are negative. Physical Exam ED Triage Vitals [12/04/22 0906] Temp Heart Rate Resp BP 36.6 ??C (97.8 ??F) 85 16 133/85 SpO2 Temp Source Heart Rate Source Patient Position 100 % Oral -- Sitting BP Location FiO2 (%) Right arm -- Physical Exam Vitals and nursing note reviewed. Constitutional: General: She is not in acute distress. Appearance: She is well-developed. She is obese. HENT: Head: Normocephalic and atraumatic. Eyes: Conjunctiva/sclera: [...] the epigastric area and left upper quadrant. Hernia: No hernia is present. Musculoskeletal: General: No swelling. Cervical back: Neck supple. Skin: General: Skin is warm and dry. Capillary Refill: Capillary refill takes less than 2 seconds. Neurological: General: No focal deficit present. Mental Status: She is alert and oriented to person, place, and time. Mental status is at baseline. GCS: GCS eye subscore is 4. GCS verbal subscore is 5. GCS motor subscore is 6. Cranial Nerves: Cranial nerves 2-12 are intact. Psychiatric: Mood and Affect: Mood normal. Labs Reviewed COMPREHENSIVE METABOLIC PANEL, PLASMA - Abnormal Result Value Glucose, Plasma 115 (*) BUN, Plasma 16 Creatinine, Plasma 0.59 (*) BUN/Creatinine Ratio 27 Sodium, Plasma 134 (*) Potassium, Plasma 4.4 Chloride, Plasma 102 CO2, Plasma 23 Anion Gap 9 Total Calcium, Plasma 9.9 Total Protein 7.5 Albumin, Plasma 4.5 AST, Plasma 11 ALT, Plasma 14 Alkaline Phosphatase, Plasma 90 Total Bilirubin, Plasma <0.2 (*) eGFRcr 120.7 CBC WITH AUTO DIFFERENTIAL - Abnormal WBC Count 7.31 RBC Count 4.88 HGB 13.2 HCT 39.3 Platelet Count 255 MCV 81 MCH 27.0 MCHC 33.6 RDW 16.1 (*) MPV 9.5 nRBC 0.0 Differential Type Automated Neutrophils % 65.0 Lymphocytes % 28.0 Monocytes % 5.0 Eosinophils % 1.0 Basophils % 1.0 Immature Granulocytes % 0.0 Neutrophils Absolute 4.77 Lymphocytes Absolute 2.01 Monocytes Absolute 0.35 Eosinophils Absolute 0.10 Basophils Absolute 0.05 Immature Granulocytes Absolute 0.03 Narrative: Therapeutic decision making should be based on absolute values, rather than percentages. URINALYSIS WITH REFLEX MICROSCOPIC - Abnormal Color, Urine Yellow Clarity, Urine Clear Spec Wayne, Urine <=1.005 pH, Urine 7.0 Protein, Urine Negative Glucose, Urine Negative Ketones, Urine Negative Blood, Urine Negative Bilirubin, Urine Negative Urobilinogen, Urine 0.2 Leukocytes, Urine Trace (*) Nitrite, Urine Negative RBC, Urine <1 WBC, Urine 0 - 5 Squamous Epithelial Cells 0 - 2 Hyaline Casts 0 - 2 Bacteria, Urine Negative Narrative: Performed by manual method LIPASE, PLASMA - Abnormal Lipase, Plasma 66 (*) MAGNESIUM, PLASMA - Normal Magnesium, Plasma 2.3 LACTATE, VENOUS - Normal Lactate, Venous, Whole Blood 1.7 URINALYSIS MICROSCOPIC FOR UA REFLEX Medications oxyCODONE (Roxicodone) immediate release tablet 10 mg (has no administration in time range) lactated Ringer's infusion 1,000 mL (1,000 mL Intravenous New Bag 12/04/22942) oxyCODONE (Roxicodone) immediate release tablet 5 mg (5 mg Oral Given 12/04/22942) promethazine (Phenergan) injection 12.5 mg (12.5 mg Intravenous Given 12/04/22945) gi cocktail oral solution 30 mL (30 mL Oral Given 12/04/22945) ED Course & MDM ED Course as of 12/04/221209 Annabel Dec 04, 2022 0954 Lactate: 1.7 [NT] 0954 WBC: 7.31 [NT] 0954 Hemoglobin: 13.2 [NT] 0954 Platelet Count: 255 [NT] 1043 Glucose(!): 115 [NT] 1043 BUN: 16 [NT] 1043 Creatinine(!): 0.59 [NT] 1043 Sodium(!): 134 [NT] 1043 Potassium: 4.4 [NT] 1043 Lipase(!): 66 WNL [NT] 1043 Magnesium: 2.3 [NT] 1204 Leukocytes, Urine(!): Trace [NT] 1204 Bacteria, Urine: Negative [NT] 1204 Nitrite, Urine: Negative [NT] ED Course User Index [NT] Ирина Oliver APRN Clinical Impressions as of 12/04/220 Generalized abdominal pain - Medical Decision Making MDM: Patient was seen in ED by Ирина Oliver APRN and Dr. Ramos. Lila Mcnally presents to ED for evaluation of abdominal pain, nausea, and vomiting. Differential diagnosis includes viral gastroenteritis, GERD, acute on chronic pancreatitis, malingering. On arrival, patient is an obese 36-year old female whom is very well known to the ED, that presentsand is hemodynamically stable, afebrile, and in no acute distress. Physical exam revealed clear bilateral breath sounds, no advantageous cardiac sounds, patient does have left upper quadrant abdominal pain however no rigidity concerning for peritonitis. Her symptom presentation is consistent with her previous visits. Evaluation includes CBC with differential, CMP, lactate, lipase, magnesium level, urinalysis. Patient was symptomatically managed with 1000 mL of LR, 12.5 mg of IV promethazine, 5 mg of oral oxycodone, and a GI cocktail with mild improvement to her symptoms. Labs reviewed and interpreted independently by myself for clinically significant for no notable leukocytosis, lactate, WBC count, hemoglobin were within normal limits. Patient did have a mild hyponatremia however addressed with IV fluids. Lipase was within normal limits at 66. Urinalysis demonstrated trace leukocytes however negative bacteria and nitrites grossly limited concern for acute infection. All lab results were discussed with the patient. At this time is likely the patient is experiencing an acute exacerbation of her chronic abdominal pain. Patient was instructed to follow-up with her PCP for ongoing management return to the ED with any signs and symptoms of worsening condition. Patient notes that she is currently out of her home oxycodone and requested a 10 mg dose before discharge, patient was given this dose of oxycodone prior to discharge. No prescription refill was sent with the patient due to concern for possible misuse. Patient ambulated from the ED with steady gait. Amount and/or Complexity of Data Reviewed Labs: ordered. Decision-making details documented in ED Course. Radiology: Details: The utility of advanced imaging like a CT abdomen and pelvis with IV contrast was considered however as the patient has had multiple CT scans over the course of the past several months and her symptomology is that of her chronic pain, the utility was limited therefore this test was omitted. ED Prescriptions None Sign Off Checklist Clinical Impression: Complete ED Disposition: Complete - Discharge Instructions You were seen in the emergency department today and evaluated for abdominal pain. I believe that the symptoms your experiencing are likely secondary to your chronic abdominal pain as your labs and urine are within normal limits. Please follow-up with your PCP for ongoing management return to the EDwith any signs and symptoms of worsening condition. Discharge References/Attachments Abdominal Pain, Adult (Burmese) Disposition Discharge Ирина Oliver APRN 12/04/22 1210 Cosigned by Kayla Ramos MD at 12/04/2022 12:47 PM EDT Associated attestation - Kayla Ramos MD - 12/04/2022 12:47 PM EDT The patient was seen only by Advanced Practice Provider (AJAY), and care was reviewed with me. * ED Triage Notes - Carlton Sr, RN - 12/04/2022 8:59 AM EDT Pt complains of abdominal pain that started yesterday with NVD. documented in this encounter Plan of Treatment Not on file documented as of this encounter Procedures Procedure Name Priority Date/Time Associated Diagnosis Comments URINALYSIS MICROSCOPIC FOR UA REFLEX STAT 12/04/2022 11:03 AM EDT URINALYSIS WITH REFLEX MICROSCOPIC STAT 12/04/2022 11:03 AM EDT LACTATE, VENOUS STAT 12/04/2022 9:40 AM EDT CBC WITH AUTO DIFFERENTIAL STAT 12/04/2022 9:40 AM EDT MAGNESIUM, PLASMA STAT 12/04/2022 9:4 0 AM EDT LIPASE, PLASMA STAT 12/04/2022 9:40 AM EDT COMPREHENSIVE METABOLIC PANEL, PLASMA STAT 12/04/2022 9:40 AM EDT documented in this encounter Results * Urinalysis Microscopic Examination (12/04/2022 11:03 AM EDT) Urine Urine specimen obtained by clean catch procedure / Unknown Non-blood Collection / Unknown 12/04/2022 11:03 AM EDT 12/04/2022 11:05 AM EDT us Ирина Oliver APRN LAB URINE ORDERABLES Final Result [facility] [address] [place] [address] * (ABNORMAL) Urinalysis with reflex microscopic (12/04/2022 11:03 AM EDT) Color, Urine Yellow LAB URINALYSIS - AUTOMATED METHOD [facility] Clarity, Urine Clear LAB URINALYSIS - AUTOMATED METHOD 12/04/2022 11:48 AM [facility] Spec Wayne, Urine <=1.005 <=1.005 to >=1.030 LAB URINALYSIS - AUTOMATED METHOD 12/04/2022 11:48 AM [facility] pH, Urine 7.0 4.5 to 8 LAB URINALYSIS - AUTOMATED METHOD 12/04/2022 11:48 AM [facility] Protein, Urine Negative Negative mg/dL LAB URINALYSIS - AUTOMATED METHOD 12/04/2022 11:48 [facility] Glucose, Urine Negative Negative mg/dL LAB URINALYSIS - AUTOMATED METHOD 12/04/2022 11:48 AM [facility] Ketones, Urine Negative Negative mg/dL LAB URINALYSIS - AUTOMATED METHOD 12/04/2022 11:48 AM [facility] Blood, Urine Negative Negative LAB URINALYSIS - AUTOMATED METHOD 12/04/2022 11:48 AM [facility] Bilirubin, Urine Negative Negative LAB URINALYSIS - AUTOMATED METHOD 12/04/2022 11:48 AM [facility] Urobilinogen, Urine 0.2 0.2 to 1.0 mg/dL LAB URINALYSIS - AUTOMATED METHOD 12/04/2022 11:48 AM [facility] Leukocytes, Urine Trace(A) Negative LAB URINALYSIS - AUTOMATED METHOD 12/04/2022 11:48 AM [facility] Nitrite, Urine Negative Negative LAB URINALYSIS - AUTOMATED METHOD 12/04/2022 11:48 AM [facility] RBC, Urine <1 0 to 3 /HPF 12/04/2022 11:48 AM [facility] Comment:This result was prev iously suppressed from the chart. WBC, Urine 0 - 5 0 to 5 /HPF 12/04/2022 11:48 [facility] Comment:This result was prev iously suppressed from the chart. Squamous Epithelial Cells 0 - 2 0 to 5 /HPF 12/04/2022 11:48 AM [facility] Comment:This result was prev iously suppressed from the chart. Hyaline Casts 0 - 2 0 to 5 /LPF 12/04/2022 11:48 AM EDT [facility] Comment:This result was prev iously suppressed from the chart. Bacteria, Urine Negative Negative 12/04/2022 11:48 AM EDT [facility] Comment:This result was prev iously suppressed from the chart. Urine Urine specimen obtained by clean catch procedure / Unknown Non-blood Collection / Unknown 12/04/2022 11:03 AM EDT 12/04/2022 11:05 AM EDT Narrative [facility] - 12/04/2022 11:48 AM EDT Performed by manual method Ирина Oliver APRN LAB URINE ORDERABLES Final Result Performing Organization Address City/[facility] Co de Phone Number [facility] [address] [place] [address] * (ABNORMAL) Lipase (12/04/2022 9:40 AM EDT) Lipase, Plasma 66(H) 19 - 63 U/L 12/04/2022 10:18 AM EDT [facility] Blood Venous blood specimen / Unknown Venipuncture / Unknown 12/04/2022 9:40 AM EDT 12/04/2022 9:49 AM EDT us Ирина Oliver APRN LAB BLOOD ORDERABLES Final Result Performing Organization Address City/[facility]/ZIP Co de Phone Number [facility] [address] [place] [address] * Lactic acid, venous (12/04/2022 9:40 AM EDT) Lactate, Venous, Whole Blood 1.7 0.5 - 2.2 mmol/L LAB HEMATOLOGY METHOD 12/04/2022 9:53 AM EDT [facility] Blood Venous blood specimen / Unknown Venipuncture / Unknown 12/04/2022 9:40 AM EDT 12/04/2022 9:49 AM EDT us Ирина Oliver ORANGE PICKER LAB BLOOD ORDERABLES Final Result [facility] [address] [place] [address] * Magnesium (12/04/2022 9:40 AM EDT) Pathologist [facility] Magnesium, Plasma 2.3 1.9 - 2.4 mg/dL 12/04/2022 10:18 AM EDT [facility] Blood Venous blood specimen / Unknown Venipuncture / Unknown 12/04/2022 9:40 AM EDT 12/04/2022 9:49 AM EDT Ирина Bibiana Melody ORANGE PICKER LAB BLOOD ORDERABLES Final Result Performing Organization Address City/[facility]/ZIP Co de Phone Number [facility] [address] [place] [address] * (ABNORMAL) CBC w/diff (12/04/2022 9:40 AM EDT) Pathologist [facility] WBC Count 7.31 3.70 - 10.30 10*3/uL LAB HEMATOLOGY METHOD 12/04/2022 9:51 AM EDT [facility] RBC Count 4.88 3.90 - 5.20 10*6/uL LAB HEMATOLOGY METHOD 12/04/2022 9:51 AM EDT [facility] HGB 13.2 11.2 - 15.7 g/dL LAB HEMATOLOGY METHOD 12/04/2022 9:51 AM EDT [facility] HCT 39.3 34.0 - 45.0 % LAB HEMATOLOGY METHOD 12/04/2022 9:51 AM EDT [facility] Platelet Count 255 155 - 369 10*3/uL LAB HEMATOLOGY METHOD 12/04/2022 9:51 AM EDT [facility] MCV 81 79 - 98 fL LAB HEMATOLOGY METHOD 12/04/2022 9:51 AM EDT [facility] MCH 27.0 26.0 - 32.0 pg LAB HEMATOLOGY METHOD 12/04/2022 9:51 AM EDT [facility] MCHC 33.6 30.7 - 35.5 g/dL LAB HEMATOLOGY METHOD 12/04/2022 9:51 AM EDT [facility] RDW 16.1(H) 11.5 - 14.5 % LAB HEMATOLOGY METHOD 12/04/2022 9:51 AM EDT [facility] MPV 9.5 8.8 - 12.5 fL LAB HEMATOLOGY METHOD 12/04/2022 9:51 AM EDT [facility] nRBC 0.0 <=0.0 per 100 WBCs LAB HEMATOLOGY METHOD 12/04/2022 9:51 AM EDT [facility] Differential Type Automated LAB HEMATOLOGY METHOD 12/04/2022 9:51 AM EDT [facility] Neutrophils % 65.0 % LAB HEMATOLOGY METHOD 12/04/2022 9:51 AM EDT [facility] Lymphocytes % 28.0 % LAB HEMATOLOGY METHOD 12/04/2022 9:51 AM EDT [facility] Monocytes % 5.0 % LAB HEMATOLOGY METHOD 12/04/2022 9:51 AM EDT [facility] Eosinophils % 1.0 % LAB HEMATOLOGY METHOD 12/04/2022 9:51 AM EDT [facility] Basophils % 1.0 % LAB HEMATOLOGY METHOD 12/04/2022 9:51 AM EDT [facility] Immature Granulocytes % 0.0 % LAB HEMATOLOGY METHOD 12/04/2022 9:51 AM EDT [facility] Neutrophils Absolute 4.77 1.60 - 6.10 10*3/uL LAB HEMATOLOGY METHOD 12/04/2022 9:51 AM EDT [facility] Lymphocytes Absolute 2.01 1.20 - 3.90 10*3/uL LAB HEMATOLOGY METHOD 12/04/2022 9:51 AM EDT [facility] Monocytes Absolute 0.35 0.30 - 0.90 10*3/uL LAB HEMATOLOGY METHOD 12/04/2022 9:51 AM EDT [facility] Eosinophils Absolute 0.10 0.00 - 0.50 10*3/uL LAB HEMATOLOGY METHOD 12/04/2022 9:51 AM EDT [facility] Basophils Absolute 0.05 0.00 - 0.10 10*3/uL LAB HEMATOLOGY METHOD 12/04/2022 9:51 AM EDT [facility] Immature Granulocytes Absolute 0.03 0.00 - 0.06 10*3/uL LAB HEMATOLOGY METHOD 12/04/2022 9:51 AM EDT [facility] Blood Venous blood specimen / Unknown Venipuncture / Unknown 12/04/2022 9:40 AM EDT 12/04/2022 9:49 AM EDT Narrative [facility] - 12/04/2022 9:51 AM EDT Therapeutic decision making should be based on absolute values, rather than percentages. us Ирина Oliver ORANGE PICKER LAB BLOOD ORDERABLES Final Result [facility] [address] [place] [address] * (ABNORMAL) CMP (12/04/2022 9:40 AM EDT) Glucose, Plasma 115(H) 74 - 99 mg/dL 12/04/2022 10:18 AM EDT [facility] BUN, Plasma 16 7 - 21 mg/dL 12/04/2022 10:18 AM EDT [facility] Creatinine, Plasma 0.59(L) 0.60 - 1.10 mg/dL 12/04/2022 10:18 AM EDT [facility] BUN/Creatinine Ratio 27 12/04/2022 10:18 AM EDT [facility] Sodium, Plasma 134(L) 136 - 145 mmol/L 12/04/2022 10:18 AM EDT [facility] Potassium, Plasma 4.4 3.7 - 4.8 mmol/L 12/04/2022 10:18 AM EDT [facility] Chloride, Plasma 102 97 - 107 mmol/L 12/04/2022 10:18 AM EDT [facility] CO2, Plasma 23 22 - 29 mmol/L 12/04/2022 10:18 AM EDT [facility] Anion Gap 9 6 - 16 mmol/L 12/04/2022 10:18 AM EDT [facility] Total Calcium, Plasma 9.9 8.9 - 10.2 mg/dL 12/04/2022 10:18 AM EDT [facility] Total Protein 7.5 6.3 - 7.9 g/dL 12/04/2022 10:18 AM EDT [facility] Albumin, Plasma 4.5 3.5 - 5.2 g/dL 12/04/2022 10:18 AM EDT [facility] AST, Plasma 11 10 - 35 U/L 12/04/2022 10:18 AM EDT [facility] ALT, Plasma 14 10 - 35 U/L 12/04/2022 10:18 AM EDT [facility] Alkaline Phosphatase, Plasma 90 35 - 104 U/L 12/04/2022 10:18 AM EDT [facility] Total Bilirubin, Plasma <0.2(L) 0.2 - 1.1 mg/dL 12/04/2022 10:18 AM EDT [facility] eGFRcr 120.7 mL/min/1.7 3m*2 12/04/2022 10:18 AM EDT [facility] Comment:Reported eGFRcr in m L/min/1.73m2 is based the CKD-EPI 2020 equation that does not use a race coefficient. Blood Venous blood specimen / Unknown Venipuncture / Unknown 12/04/2022 9:40 AM EDT 12/04/2022 9:49 AM EDT Ирина Oliver APRN LAB BLOOD ORDERABLES Final Result [facility] [address] [place] [address] documented in this encounter Visit Diagnoses Diagnosis Generalized abdominal pain- Primary Abdominal pain, generalized documented in this encounter Administered Medications Inactive Administered Medications - up to 3 most recent administrations Medication Order MAR Action Action Date Dose Rate Site gi cocktail oral solution 30 mL 30 mL, Oral, Once, 1 dose, On Annabel 12/04/22 at 0935, STAT Given 12/04/2022 9:46 AM EDT 30 mL lactated Ringer's infusion 1,000 mL 1,000 mL, Intravenous, Once, 1 dose, On Annabel 12/04/22 at 0930, STAT New Bag 12/04/2022 9:43 AM EDT 1,000 mL oxyCODONE (Roxicodone) immediate release tablet 10 mg 10 mg, Oral, Once, 1 dose, On Annabel 12/04/22 at 1210, STAT Given 12/04/2022 12:14 PM EDT 10 mg oxyCODONE (Roxicodone) immediate release tablet 5 mg 5 mg, Oral, Once, 1 dose, On Annabel 12/04/22 at 0930, STAT Given 12/04/2022 9:43 AM EDT 5 mg promethazine (Phenergan) injection 12.5 mg 12.5 mg, Intravenous, Once, 1 dose, On Annabel 12/04/22 at 0930, STAT Given 12/04/2022 9:46 AM EDT 12.5 mg documented in this encounter Active and Recently Administered Medications Times are shown in EDT. Scheduled Medication Order 12/02/2022 12/03/2022 12/04/2022 gi cocktail oral solution 30 mL (COMPLETED) 30 mL, Oral, Once, 1 dose, On Annabel 12/04/22 at 0935, STAT 0946 (Given - Provid er: Kirill Blevins RN) lactated Ringer's infusion 1,000 mL (COMPLETED) 1,000 mL, Intravenous, Once, 1 dose, On Annabel 12/04/22 at 0930, STAT 0943 (New Bag - Prov ider: Kirill Blevins RN)1214 (Stopped - Provider: Kirill Blevins RN) oxyCODONE (Roxicodone) immediate release tablet 10 mg (COMPLETED) 10 mg, Oral, Once, 1 dose, On Annabel 12/04/22 at 1210, STAT 1214 (Given - Provid er: Kirill Blevins RN) oxyCODONE (Roxicodone) immediate release tablet 5 mg (COMPLETED) 5 mg, Oral, Once, 1 dose, On Annabel 12/04/22 at 0930, STAT 0943 (Given - Provid er: Kirill Blevins RN) promethazine (Phenergan) injection 12.5 mg (COMPLETED) 12.5 mg, Intravenous, Once, 1 dose, On Annabel 12/04/22 at 0930, STAT 0946 (Given - Provid er: Kirill Blevins RN) documented in this encounter Additional Health Concerns Assessment Noted Time A fall risk assessment has been complete d for the patient 11/21/2020 2:30 PM EDT documented as of this encounter Care Teams Ultrasonic Seaming Machine Operator Relationship Specialty Start Date End Date Elmo Escobar MD PCP - General 10/18/20 01/05/23 documented as of this encounter
--- OUTSIDE RECORDS SUMMARY | 2024-02-03 15:18 | XMS_ITS | Encounter Summary ---
Author Organization Healthcare Address [address] [place] [address] Care Team Providers Care Food Service Team Member Name Role Phone Elmo Escobar MD Primary Care Provider [phone] Reason for Referral * Consultation (Routine) - Authorized Specialty Diagnoses / Procedures Referred By Susy burks Referred To Contact Pain Medicine Diagnoses Uncomplicated opioid dependence (CMS/HCC) Other chronic pain Fibromyalgia Angie Rosas APRN, DNP [address] [address] Phone: tel: fax: [facility] [address] [place] [address] Phone: tel: fax: Referral ID Status Reason Start Date Expiration Date Visits Requested Visits Authorized [id number] Authorized Specialty Services Required 11/20/2022 05/21/2024 1 1 Scheduling Instructions Chronic pain management. H/O Fibromyalgia * Consultation (Routine) - Authorized Specialty Diagnoses / Procedures Referred By Susy burks Referred To Contact Gastroenterology Diagnoses Acute on chronic pancreatitis (CMS/HCC) Angie Rosas APRN, DNP [address] [address] Phone: tel: fax: Referral ID Status Reason Start Date Expiration Date Visits Requested Visits Authorized [id number] Authorized Specialty Services Required 11/18/2022 05/19/2024 1 1 Scheduling Instructions Acute on chronic pancreatitis Reason for Visit * Reason Comments Abdominal Pain * Auth/Cert (Routine) Specialty Diagnoses / Procedures Referred By Susy burks Referred To Contact Diagnoses Acute on chronic pancreatitis (CMS/HCC) Ana Cristina Feliz MD [address] [place] [address] Phone: tel: fax: [facility] [address] [place] [address] Phone: tel: Referral ID Status Reason Start Date Expiration Date Visits Re quested Visits Authorized [id number] 1 1 Encounter Details Date Type Department Care Team (Latest Contact Info) Description 11/18/2022 8:54 AM EDT - 11/21/2022 12:33 PM EDT Hospital Encounter [facility] Inpatient [address] [place] [id number] George Tang MD [address] [place] [address] Ana Cristina Feliz MD [address] [place] [address] Acute on chronic pancreatitis (CMS/HCC) (Primary Dx); Uncomplicated opioid dependence (CMS/HCC); Other chronic pain; Fibromyalgia Discharge Disposition: Home or Self Care Social [...] drink first t 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) to steady your nerves or to get [...] Sign Reading Time Taken Comments Blood Pressure 154/100 11/21/2022 8:06 AM EDT Pulse 65 11/21/2022 8:06 AM EDT Temperature 36.3 ??C (97.4 ??F) 11/21/2022 8:06 AM ED T Respiratory Rate 18 11/20/2022 7:00 AM EDT Oxygen Saturation 98% 11/21/2022 8:06 AM EDT Inhaled Oxygen Concentration - - Weight 106 kg (233 lb 14.5 oz) 11/20/2022 6:40 A M EDT Height 165.1 cm (5' 5 ) 11/18/2022 8:52 AM EDT Body Mass Index 38.92 11/18/2022 8:52 AM EDT documented in this encounter Medications at Time of Discharge pantoprazole (Protonix) 40 MG EC tablet Take 1 tablet (40 mg) by mouth 1 (one) time each day. Do not crush, chew, or split. famotidine (Pepcid) 20 MG tablet Take 1 tablet (20 mg) by mouth 2 (two) times a day. 60 tablet 11/14/2022 oxyCODONE (Roxicodone) 10 MG immediate release tablet Take 0.5-1 tablets (5-10 mg) by mouth every 6 (six) hours if needed for severe pain for up to 3 days. 12 tablet 11/21/2022 3 prochlorperazine (Compazine) 10 MG tablet Take 0.5-1 tablets (5-10 mg) by mouth every 6 (six) hours if needed for nausea or vomiting for up to 3 days. 12 tablet 11/21/2022 3 acetaminophen (Tylenol) 500 MG tablet Take [...] needed for nausea or vomiting. 4 pancrelipase, Uka-Vwgh-Ygdh, (Creon) 6000-74736 units capsule Take 1 capsule by mouth 3 (three) times a day with meals. 90 capsule 1 11/14/2022 3 pregabalin (Lyrica) 100 MG capsule Take 1 capsule (100 mg) by mouth 3 (three) times a day. 4 sucralfate (Carafate) 1 GM/10ML suspension Take 10 mL (1 g) by mouth 4 (four) times a day. 4 documented as of this encounter Miscellaneous Notes * Addendum Note - Ana Cristina Feliz MD - 11/21/2022 12:33 PM EDTEncounter addended by: Ana Cristina Feliz MD on: 12/19/2022 5:05 PM Actions taken: Cosign clinical note * Progress Notes - Isaias Thompson RN - 11/21/2022 12:18 PM EDT Case Management Discharge Note Rosibel Gayle 36 y.o. female CSN: [id number] Admission: 11/18/2022 8:54 AM Primary Problem: Acute on chronic pancreatitis (CMS/HCC) Primary Leak Patcher: Primary Caregiver: Self Assistance Available at Discharge: No anticipated need for assistance Discharge Facility/Level of Care Needs: N/A Patient's Choice of Community Agency(s): N/A Patient/Family Anticipated Services at Transition: None DME/Equipment Needed after Discharge: Equipment Currently Used at Home: none Readmission Within the Last 30 Days: Yes Medicare Documentation: N/A Follow-up: PCP: Elmo Escobar MD [address] [place] [id number] Go on 11/27/2022 Hospital follow up scheduled at 9:30 am on November 27, 2022 Discharge Transportation: Family Follow Up Transport: Family Additional Comments: CM notified of plan for discharge today and no needs identified. CM scheduled follow up for one week with PCP and information placed in chart. Isaias Thompson RN * Discharge Summary - Angie Rosas, ESTEBAN, DNP - 11/21/2022 11:41 AM EDT Hospitalization Admit Date/Time: 11/18/2022 8:54 AM Admitting Attending: Ana Cristina Feliz Discharge Date: 11/21/22 Discharge Attending Physician: Ana Cristina Feliz MD PCP name and Address: Elmo Escobar MD [facility] / [place] [address] Referring provider name and address: No referring provider defined for this encounter. Chief Concern, Brief History of Present Illness, and Hospital Course Rosibel Gayle is a 36 y.o. year-old female with a PMH of chronic pancreatitis, anxiety, fibromyalgia, duodenal ulcer and cholecystectomy (2011) due to gallstones who presented to ED due to leftupper quadrant pain w/ N/V/D. She was most recently hospitalized 11/11-11/14 for similar symptoms. Upon review of hospital records patient has been seen in the ER 24 times for similar symptoms. Acute LUQ Abdominal Pain with N/V/D - Differential diagnosis includes but not limited to: acute on chronic pancreatitis vs. Cannabis Hyperemesis Syndrome vs. Cyclic Vomiting Syndrome vs. infectious vs. Gastritis vs. Diverticulitis vs. Nephrolithiasis vs. Psychogenic - Onset approximately 2 days ago - Review of hospital records show 24 ER visits with multiple admissions in 2022. Most recently admitted 11/11-11/14. - CRP: 9.2, Triglycerides 161, HDL 29 and LDL 141 - UDS presumed positive for cannabinoid, opiates and oxycodone - CT abd/pelvis w/ contrast: no acute findings Plan - A1C: 5.2 - Hold antibiotic for now with no clear source of infection. If patient declines or becomes febrile, consider further work up and broad spectrum antibiotics. - Advance as tolerated. Recommend low fat - PBS GI appointment 12/15 @ 2:40p.m. Chronic Medical Conditions: Fibromyalgia w/ Chronic Pain (POA) - Patient reports LUQ at this time Plan: - Pain management: recommend multi-modality approach with scheduled NSAID and Tylenol, heat packs, topicals (diclofenac or lidocaine patches) w/ Oxycodone 5- 10mg q6h prn - Continue Pregablin - Referral to Ambulatory Pain Management Clinic GERD - Patient denies current symptoms - Resume home Creon, PPI and Carafate Anxiety/Depression - Denies SI/SH - PHQ2 screen negative. Mood is good - Continue Duloxetine 30mg daily titrate up as needed - Hydroxyzine 25mg q6h PRN - PRN Ativan reduced to 0.5-1mg q 12hours PRN - Follow up with outpatient psychiatry 01/08/23 @ 10:00a.m. - Encourage counseling and horse therapy Obesity - Body mass index is 38.94 kg/m??. - Complicates all aspects of care - Diet and exercise education at time of discharge Tobacco use disorder with nicotine dependency (POA) - Smoking cessation counseling and NRT as needed Surgeries and Procedures Medication List .. acetaminophen 500 MG tablet Commonly known as: Tylenol Take 2 tablets (1,000 mg) by mouth every 6 (six) hours if needed for pain. celecoxib 200 MG capsule Commonly known as: CeleBREX Take 1 capsule (200 mg) by mouth 2 (two) times a day. cholecalciferol 50 MCG (2000 UT) capsule Commonly known as: Vitamin D-3 Take 1 capsule (2,000 Units) by mouth 1 (one) time each day. cyanocobalamin 1000 MCG tablet Commonly known as: Vitamin B-12 Take 1 tablet (1,000 mcg) by mouth 1 (one) time each day. DULoxetine [address] capsule Commonly known as: Cymbalta Take 1 capsule (30 mg) by mouth 1 (one) time each day. Do not crush or chew. Start taking on: November 22, 2022 famotidine 20 MG tablet Commonly known as: Pepcid Take 1 tablet (20 mg) by mouth 2 (two) times a day. hydrOXYzine pamoate 25 MG capsule Commonly known as: Vistaril Take 1 capsule (25 mg) by mouth every 6 (six) hours if needed for anxiety for up to 10 days. LORazepam 1 MG tablet Commonly known as: Ativan Take 0.5-1 tablets (0.5-1 mg) by mouth every 12 (twelve) hours if needed for anxiety for up to 3 days. MELATONIN PO Take 1 tablet by mouth at night if needed. naloxone 4 mg/0.1 mL nasal spray Commonly known as: Narcan 1. Give 1 spray in nostril for no/slow breathing or cannot wake after opioid use 2. Call 911 3. Repeat in other nostril if symptoms continue 1 spray ondansetron ODT 4 MG disintegrating tablet Commonly known as: Zofran-ODT Take 1 tablet (4 mg) by mouth every 8 (eight) hours if needed for nausea or vomiting. oxyCODONE 10 MG immediate release tablet Commonly known as: Roxicodone Take 0.5-1 tablets (5-10 mg) by mouth every 6 (six) hours if needed for severe pain for up to 3 days. pancrelipase (Dlk-Ydav-Lowv) 6000-12185 units capsule Commonly known as: Creon Take [...] MG tablet Commonly known as: Compazine Take 0.5-1 tablets (5-10 mg) by mouth every 6 (six) hours if needed for nausea or vomiting for up to 3 days. sucralfate 1 GM/10ML suspension Commonly known as: Carafate Take 10 mL (1 g) by mouth 4 (four) times a day. Where to Get Your Medications These medications were sent to [facility] - [place], [place] - [address] [facility] [id number] celecoxib 200 MG capsule DULoxetine [address] capsule hydrOXYzine pamoate 25 MG capsule LORazepam 1 MG tablet oxyCODONE 10 MG immediate release tablet prochlorperazine 10 MG tablet Discharge Diagnosis Medical Problems Active and Resolved Hospital Problems Hospital Anxiety (Chronic) Fibromyalgia (Chronic) GERD (gastroesophageal reflux disease) (Chronic) Obesity (Chronic) Chronic pain (Chronic) Opiate dependence (CMS/HCC) (Chronic) Hypertension (Chronic) Nicotine dependence (Chronic) RESOLVED: Bipolar depression (CMS/HCC) (Chronic) Marijuana use * (Principal) RESOLVED: Acute on chronic pancreatitis (CMS/HCC) Post Discharge Instructions Follow up with Sherrill Donovan 01/08/23 @ 10:00a.m. Follow up with PCP 11/27 9:30 am. Referral to Chronic Pain Management ordered. If they have not called you within 1 week, call them at [phone] Outpatient Follow-Up Future Appointments Date Time Provider Department Center 12/15/2022 2:40 PM Gurdeep Rodriguez MD [facility] Test Results Pending At Discharge Pending Labs Order Current Status OXYCODONE CONFIRMATION,URINE In process Opiates Confirm Urine In process THC Urine Confirm LCMSMS In process Pertinent Physical Exam At Time of Discharge Physical Exam Vitals reviewed. Constitutional: General: She is not in acute distress. Appearance: Normal appearance. She is obese. HENT: Head: Normocephalic and atraumatic. Right Ear: External ear normal. Left Ear: External ear normal. Nose: Nose normal. Mouth/Throat: Mouth: Mucous membranes are moist. Pharynx: Oropharynx is clear. Eyes: Extraocular Movements: Extraocular movements intact. Pupils: [...] There is no abdominal tenderness. Musculoskeletal: General: Normal range of motion. Cervical back: Normal range of motion and neck supple. No tenderness. Right lower leg: No edema. Left lower leg: No edema. Lymphadenopathy: Cervical: No cervical adenopathy. Skin: General: Skin is warm and dry. Coloration: Skin is not jaundiced. Findings: No rash. Neurological: General: No focal deficit present. Mental Status: She is alert and oriented to person, place, and time. Motor: No weakness. Psychiatric: Mood and Affect: Mood is anxious. Behavior: Behavior normal. Thought Content: Thought content normal. Discharge Disposition/Condition Disposition: Home Condition: Stable (s/sx potential problems absent or manageable) I spent >30 minutes of patient care and instruction time in preparation for this discharge. Cosigned by Ana Cristina Feliz MD at 12/19/2022 5:05 PM EDT * Care Plan - Meet Clark - 11/21/2022 8:00 AM EDT Problem: Adult Inpatient Plan of Care Goal: Plan of Care Review Outcome: Ongoing, Progressing Goal: Absence of Hospital-Acquired Illness or Injury Outcome: Ongoing, Progressing Goal: Readiness for Transition of Care Outcome: Ongoing, Progressing Problem: Pain Acute Goal: Optimal Pain Control and Function Outcome: Ongoing, Progressing * Care Plan - Reji Garsia - 11/20/2022 9:23 PM EDT Problem: Adult Inpatient Plan of Care Goal: Plan of Care Review Outcome: Ongoing, Progressing Goal: Optimal Comfort and Wellbeing Outcome: Ongoing, Progressing Goal: Readiness for Transition of Care Outcome: Ongoing, Progressing * Progress Notes - Angie Rosas APRN, DNP - 11/20/2022 7:17 PM EDT [facility] Medicine Progress Note Interval Hx/Events of past 24 hours: Rosibel Gayle was seen on morning rounds. Resting comfortably in bed. NAD. No acute events overnight. Patient was seen by CM this morning to discuss needs at time of discharge. Since the meeting patient has reported uncontrolled pain and requested increase in opiates. Educated patient she hasn'tmaximized on all of the oral pain medication options including NSAIDs and Tylenol. Further educated patient we will continue to wean IV dilaudid to be spaced out every 12 hours PRN severe breakthrough pain and will be discontinued at time of discharge. Educated patient duloxetine will take approximately 4-6 weeks to reach full effects of the .medication. Encouraged patient to follow up with PsychAPRN after hospital discharge so medication can be titrated to better control anxiety/depression. I explained we will be reducing the dose of the Lorazempam starting this evening as this is not the appropriate medication for management of anxiety and should be utilized for panic attacks only. I educated patient on her chronicity of medical conditions and optimizing management with GI, psych, painmanagement and PCP. I discussed frequent ER visits and hospital admissions will not lead to controlof the medical conditions. I further explained the chronic N/V and abdominal pain will be worked upmore thoroughly with GI in the outpatient setting. I educated patient at the time of discharge symptom control will be optimized to reduce readmission. I also educated patient the use of opiates will likely further exacerbate N/V and abdominal pain as they slow the motility of the GI tract and encouraged her to utilize Tylenol and NSAIDs on a scheduled basis. Patient states she is interested in following with pain management to further explore pain management options. Reminded patient abstinence of THC products will be best option to reduce exacerbation of N/V. Also educated patient we ordered low fat diet to minimize exacerbation of the pancreatitis. Re-assured patient we are working toward custodial management of all medical conditions. Patient is agreeable with plan. Review of Systems: Review of Systems Constitutional: Negative for chills, fatigue and fever. HENT: Negative for congestion, ear pain, nosebleeds, sinus pressure, sore throat and trouble swallowing. Eyes: Negative for photophobia, pain, discharge and visual disturbance. Respiratory: Negative for cough, chest tightness and shortness of breath. Cardiovascular: Negative for chest pain, palpitations and leg swelling. Gastrointestinal: Positive for abdominal pain and nausea. Negative for constipation, diarrhea and vomiting. Endocrine: Negative for cold intolerance and heat intolerance. Genitourinary: Negative for decreased urine volume, difficulty urinating, dysuria, flank pain and frequency. Musculoskeletal: Negative for arthralgias, joint swelling and myalgias. Skin: Negative for color change, rash and wound. Allergic/Immunologic: Negative for environmental allergies and food allergies. Neurological: Negative for dizziness, seizures, syncope, weakness and headaches. Hematological: Negative for adenopathy. Does not bruise/bleed easily. Psychiatric/Behavioral: Negative for confusion, sleep disturbance and suicidal ideas. The patient is nervous/anxious. Physical Exam: Visit Vitals BP 121/86 (BP Location: Right arm, Patient Position: Sitting) Pulse 76 Temp 36.8 ??C (98.2 ??F) (Oral) Resp 18 Ht 1.651 m (5' 5 ) Wt 106 kg (233 lb 14.5 oz) SpO2 97% BMI 38.92 kg/m?? OB Status Having periods Smoking Status Every Day BSA 2.2 m?? Physical Exam Vitals reviewed. Constitutional: General: She is not in acute distress. Appearance: Normal appearance. She is obese. HENT: Head: Normocephalic and atraumatic. Right Ear: External ear normal. Left Ear: External ear normal. Nose: Nose normal. Mouth/Throat: Mouth: Mucous membranes are moist. Pharynx: Oropharynx is clear. Eyes: Extraocular Movements: Extraocular movements intact. Pupils: [...] There is no abdominal tenderness. Musculoskeletal: General: Normal range of motion. Cervical back: Normal range of motion and neck supple. No tenderness. Right lower leg: No edema. Left lower leg: No edema. Lymphadenopathy: Cervical: No cervical adenopathy. Skin: General: Skin is warm and dry. Coloration: Skin is not jaundiced. Findings: No rash. Neurological: General: No focal deficit present. Mental Status: She is alert and oriented to person, place, and time. Motor: No weakness. Psychiatric: Mood and Affect: Mood is anxious. Affect is tearful. Behavior: Behavior normal. Thought Content: Thought content normal. Intake and Output Intake/Output Summary (Last 24 hours) at 11/20/20221916 Last data filed at 11/20/2022 1700 Gross per 24 hour Intake 960 ml Output -- Net 960 ml Admission weight: Weight: 106 kg (234 lb) Medications: Current Facility-Administered Medications: acetaminophen (Tylenol) tablet 1,000 mg, 1,000 mg, Oral, q6h INO, Angie Rosas APRN, SAMANTHA celecoxib (CeleBREX) capsule 200 mg, 200 mg, Oral, BID, Angie Rosas APRN, SAMANTHA DULoxetine (Cymbalta) DR capsule 30 mg, 30 mg, Oral, Daily, Angie Rosas APRN, DNP, 30 mg at 11/20/22 0835 HYDROmorphone (Dilaudid) injection 0.5 mg, 0.5 mg, Intravenous, q12h PRN, Angie Rosas APRN, SAMANTHA LORazepam (Ativan) tablet 1 mg, 1 mg, Oral, q12h PRN, Angie Rosas APRN, SAMANTHA melatonin tablet 6 mg, 6 mg, Oral, Nightly PRN, Ana Cristina Feliz MD naloxone (Narcan) 2 mg in sodium chloride 0.9 % 100 mL (0.02 mg/mL) infusion (Urinary Retention or Pruritus), 0.25-1 mcg/kg/hr, Intravenous, Titrated PRN, Ana Cristina Feliz MD naloxone (Narcan) injection 0.08 mg, 0.08 mg, Intravenous, PRN, Ana Cristina Feliz MD nicotine (Nicoderm CQ) 14 MG/24HR patch 1 patch, 1 patch, Transdermal, Daily, 1 patch at 11/20/22 0835 FOLLOWED BY [START ON 12/31/2022] nicotine (Nicoderm CQ) 7 MG/24HR patch 1 patch, 1 patch, Transdermal, Daily, Ana Cristina Feliz MD ondansetron ODT (Zofran-ODT) disintegrating tablet 4 mg, 4 mg, Oral, q6h PRN, Ana Cristina Feliz MD,4 mg at 11/20/22 1115 oxyCODONE (Roxicodone) immediate release tablet 10 mg, 10 mg, Oral, q4h PRN, Ana Cristina Feliz MD, 10 mg at 11/20/22 1806 pancrelipase (Creon) 6000 unit capsule, 1 capsule, Oral, TID with meals, Ana Cristina Feliz MD, 1 capsule at 11/20/22 1655 pantoprazole (Protonix) EC tablet 40 mg, 40 mg, Oral, BID AC, Ana Cristina Feliz MD, 40 mg at 11/20/22 165 pregabalin (Lyrica) capsule 300 mg, 300 mg, Oral, BID, Angie Rosas APRN, SAMANTHA, 300 mg at 11/20/22 0834 prochlorperazine (Compazine) injection 2.5 mg, 2.5 mg, Intravenous, q6h PRN, Ana Cristina Feliz MD, 2.5 mg at 11/20/22 1806 senna (Senokot) tablet 17.2 mg, 2 tablet, Oral, Nightly PRN, Ana Cristina Feliz MD sucralfate (Carafate) 1 GM/10ML suspension 1 g, 1 g, Oral, Before meals & nightly, Ana Cristina Feliz MD, 1 g at 11/20/22 1655 Labs (in last 24 hours): CBC: No results found for: WBC , RBC , HGB , HCT , PLT , MCV , MCH , MCHC , RDW , NRBC Differential: No results found for: WBC , NEUTOPHILPCT , LYMPHOPCT , MONOPCT , EOSPCT , ANEUT Coagulation: No results found for: INR , PT , PTT , CLFGN Renal: No results found for: NA , K , CL , CO2 , BUN , CREATININE , GLUCOSE , CALCIUM , ICAS , MG , PHOS Liver: No results found for: AST , ALT , ALPHO , BILITOT , BILIDIR Glucose: Lab Results Component Value Date PGLU 90 11/20/2022 PGLU 92 11/20/2022 PGLU 98 11/20/2022 PGLU 106 (H) 11/19/2022 Lab Results Component Value Date HGBA1C 5.3 10/18/2020 Microbiology: Results No results found for the last 48 hours. Imaging (in last 24 hours): Assessment and plan: Principal problem: Acute on chronic pancreatitis (CMS/HCC) Principal Problem: Acute on chronic pancreatitis (CMS/HCC) Active Problems: Bipolar depression (CMS/HCC) Anxiety Fibromyalgia GERD (gastroesophageal reflux disease) Obesity Chronic pain Opiate dependence (CMS/HCC) Hypertension Nicotine dependence Marijuana use Rosibel Gayle is a 36 y.o. year-old female with a PMH of chronic pancreatitis, anxiety, fibromyalgia, duodenal ulcer and cholecystectomy (2011) due to gallstones who presented to ED due to leftupper quadrant pain w/ N/V/D. She was most recently hospitalized 11/11-11/14 for similar symptoms. Upon review of hospital records patient has been seen in the ER 24 times for similar symptoms. Acute LUQ Abdominal Pain with N/V/D - Differential diagnosis includes but not limited to: acute on chronic pancreatitis vs. Cannabis Hyperemesis Syndrome vs. Cyclic Vomiting Syndrome vs. infectious vs. Gastritis vs. Diverticulitis vs. Nephrolithiasis vs. Psychogenic - Onset approximately 2 days ago - Review of hospital records show 24 ER visits with multiple admissions in 2022. Most recently admitted 11/11-11/14. - CRP: 9.2, Triglycerides 161, HDL 29 and LDL 141 - UDS presumed positive for cannabinoid, opiates and oxycodone - CT abd/pelvis w/ contrast: no acute findings Plan - ACHS FS, Strict I&O, - Hold antibiotic for now with no clear source of infection. If patient declines or becomes febrile, consider further work up and broad spectrum antibiotics. - Advance as tolerated - PBS GI appointment 12/15 @ 2:40p.m. Chronic Medical Conditions: Fibromyalgia w/ Chronic Pain (POA) - Patient reports LUQ at this time Plan: - Pain management: recommend multi-modality approach with scheduled NSAID and Tylenol, w/ opiates prn - Continue Pregablin - Referral to Ambulatory Pain Management Clinic GERD - Patient denies current symptoms - Resume home PPI and Carafate Anxiety/Depression - Denies SI/SH - PHQ2 screen negative. Mood is good - Continue Duloxetine 30mg daily titrate up as needed - PRN Ativan reduced to 1mg q 12hours PRN - Follow up with outpatient psychiatry 01/08/23 @ 10:00a.m. Obesity - Body mass index is 38.94 kg/m??. - Complicates all aspects of care - Diet and exercise education at time of discharge Tobacco use disorder with nicotine dependency (POA) - Smoking cessation counseling and NRT as needed Fluids: Electrolytes: Continue to monitor and replace as appropriate Diet: Adult diet Diet texture: Regular; Fat restriction: Low Fat; GI: GI Soft DVT prophylaxis: SCDs + Lovenox prophylaxis Anticipated discharge to: Home Anticipated discharge needs: Follow up: Future Appointments Date Time Provider Department Center 12/15/2022 2:40 PM Gurdeep Rodriguez MD [facility] Code status: Full Code Family contact: Extended Emergency Contact Information Primary Emergency Contact: Asiya Flores [address]: [address] [place] [address] Mobile Relation: Mother Preferred language: Qatari Clean Rice 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 No Angie Rosas APRN, DNP Department of Internal Medicine Division of Hospital Medicine Secured Chat preferred * Care Plan - Mary Ley - 11/20/2022 2:26 PM EDT Problem: Adult Inpatient Plan of Care Goal: Absence of Hospital-Acquired Illness or Injury Outcome: Ongoing, Progressing Goal: Optimal Comfort and Wellbeing Outcome: Ongoing, Progressing * Progress Notes - Isaias Thompson RN - 11/20/2022 10:20 AM EDT Case Management Adult Initial Progress Note Rosibel Gayle 36 y.o. female CSN: [id number] Admission: 11/18/2022 8:54 AM Primary Problem: Acute on chronic pancreatitis (CMS/HCC) Wax Specialist reviewed chart and spoke with patient to complete this Initial Case Management Assessment. PCP: Elmo Escobar MD Emergency Contact: Extended Emergency Contact Information Primary Emergency Contact: Asiya Flores Address: [place] [address] Mobile Relation: Mother Preferred language: Qatari Clean Rice 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 No Insurance: Primary Visit Coverage Payer Plan Sponsor Code Group Number Group Name ANTHEM MEDICAID ANTHEM MEDICAID [id number] Primary Visit Coverage Subscriber Subscriber ID Subscriber Name Subscriber SSN Subscriber Address [id number] ROSIBEL GAYLE [id number] [address] [facility] [address] [facility] [place] [address] Patient information: Primary Caregiver: Self Support System: Immediate family, Other (Comment) (Mother: Asiya) Daily Living Activities: Functional Status: Independent Living Arrangements: Family (Significant Other and 3 Minor Children) Type of Residence: Private residence [address] [facility] [place] [address] Smoker in the Home?: N/A Current DME: Equipment Currently Used at Home: none Income Information: Income Source: Disabled (Social Security for Autistic Son and Foodstamps) Current Resources Utilized: Food [place] Anticipated Discharge Date: 11/21/2022 Patient's Discharge Goal: Home Assistance Available at Discharge: No anticipated need of assistance per patient Discharge Transport: Mother or Significant Other Follow Up Transport: Mother or Significant Other Home Health / Home Infusion / Outpatient Dialysis Services: None Reported Living Will/Advance Directive/Power of Home Theater Specialist /Guardian: Unable to assess: No Have you reviewed your Advance Directive and is it valid for this stay?: Not applicable Advance Directive: Not applicable Information Provided on Healthcare Directives: Other (Comment) Pre-existing DNR/DNI Order: No Patient Requests Assistance: No Additional Comments:Patient presented to hospital for concern of Acute on Chronic Pancreatitis. CM will continue to follow. Isaias Thompson RN * Care Plan - Joyce Demarco RN - 11/19/2022 9:10 PM EDT Problem: Adult Inpatient Plan of Care Goal: Absence of Hospital-Acquired Illness or Injury Outcome: Ongoing, Progressing Goal: Optimal Comfort and Wellbeing Outcome: Ongoing, Progressing Goal: Readiness for Transition of Care Outcome: Ongoing, Progressing * Progress Notes - Kimi العلي - 11/19/2022 7:24 PM EDT Case Management Adult Progress Note Rosibel Gayle 36 y.o. female CSN: [id number] Admission: 11/18/2022 8:54 AM Primary Problem: Acute on chronic pancreatitis (CMS/HCC) Patient moved to floor, SW unable to travel to bedside to complete IA. IA to be completed at later time. Primary CM to continue to follow. Kimi العلي, SHORTHAND REPORTER Evening ED SW * Progress Notes - Angie Rosas, ENAMEL DIPPER, DNP - 11/19/2022 7:05 PM EDT [facility] Medicine Progress Note Interval Hx/Events of past 24 hours: Rosibel Gayle was seen on morning rounds. Resting comfortably in bed. NAD. No acute events overnight. Patient reports LUQ pain has been well controlled overnight. Endorses nausea. No further episodes of diarrhea. Denies fever, chills, chest pain, SOB, cough, abdominal pain, constipation, or urinary symptoms. Discussed indepth importance of abstinence of marijuana, delta-8 and other similar products as thy worsen nausea and contribute to hyperemesis. Also discussed the importance of utilizingSSRI/SNRI for anxiety control instead of using benzodiazepines. Explained to patient will will be stopping FINANCIAL AID DIRECTOR and transitioning her back to oral pain medications. Patient states she understands and is agreeable with the above mentioned plan. Review of Systems: Review of Systems Constitutional: Negative for chills, fatigue and fever. HENT: Negative for congestion, ear pain, nosebleeds, sinus pressure, sore throat and trouble swallowing. Eyes: Negative for photophobia, pain, discharge and visual disturbance. Respiratory: Negative for cough, chest tightness and shortness of breath. Cardiovascular: Negative for chest pain, palpitations and leg swelling. Gastrointestinal: Positive for nausea. Negative for abdominal pain, constipation, diarrhea and vomiting. Endocrine: Negative for cold intolerance and heat intolerance. Genitourinary: Negative for decreased urine volume, difficulty urinating, dysuria, flank pain and frequency. Musculoskeletal: Negative for arthralgias, joint swelling and myalgias. Skin: Negative for color change, rash and wound. Allergic/Immunologic: Negative for environmental allergies and food allergies. Neurological: Negative for dizziness, seizures, syncope, weakness and headaches. Hematological: Negative for adenopathy. Does not bruise/bleed easily. Psychiatric/Behavioral: Negative for confusion, sleep disturbance and suicidal ideas. Physical Exam: Visit Vitals BP 134/89 (BP Location: Left arm, Patient Position: Sitting) Pulse 76 Temp 36.8 ??C (98.2 ??F) (Oral) Resp 12 Ht 1.651 m (5' 5 ) Wt 106 kg (234 lb) SpO2 97% BMI 38.94 kg/m?? OB Status Having periods Smoking Status Every Day BSA 2.2 m?? Physical Exam Vitals reviewed. Constitutional: General: She is not in acute distress. Appearance: Normal appearance. She is obese. HENT: Head: Normocephalic and atraumatic. Right Ear: External ear normal. Left Ear: External ear normal. Nose: Nose normal. Mouth/Throat: Mouth: Mucous membranes are moist. Pharynx: Oropharynx is clear. Eyes: Extraocular Movements: Extraocular movements intact. Pupils: [...] There is no abdominal tenderness. Musculoskeletal: General: Normal range of motion. Cervical back: Normal range of motion and neck supple. No tenderness. Right lower leg: No edema. Left lower leg: No edema. Lymphadenopathy: Cervical: No cervical adenopathy. Skin: General: Skin is warm and dry. Coloration: Skin is not jaundiced. Findings: No rash. Neurological: General: No focal deficit present. Mental Status: She is alert and oriented to person, place, and time. Motor: No weakness. Psychiatric: Mood and Affect: Mood normal. Behavior: Behavior normal. Thought Content: Thought content normal. Intake and Output No intake or output data in the 24 hours ending 11/19/221904 Admission weight: Weight: 106 kg (234 lb) Medications: Current Facility-Administered Medications: acetaminophen (Tylenol) tablet 1,000 mg, 1,000 mg, Oral, q6h PRN, Ana Cristina Feliz MD DULoxetine (Cymbalta) DR capsule 30 mg, 30 mg, Oral, Daily, Angie Rosas APRN, DNP, 30 mg at 11/19/22 1040 HYDROmorphone (Dilaudid) injection 0.5 mg, 0.5 mg, Intravenous, q4h PRN, Angie Rosas APRN, DNP ketorolac (Toradol) injection 15 mg, 15 mg, Intravenous, q6h PRN, Ana Cristina Feliz MD lactated Ringer's infusion, 100 mL/hr, Intravenous, Continuous, Ana Cristina Feliz MD, Last Rate: 100 mL/hr at 11/19/22 0819, 100 mL/hr at 11/19/22 0819 LORazepam (Ativan) tablet 2 mg, 2 mg, Oral, BID PRN, Angie Rosas APRN, DNP melatonin tablet 6 mg, 6 mg, Oral, Nightly PRN, Ana Cristina Feliz MD naloxone (Narcan) 2 mg in sodium chloride 0.9 % 100 mL (0.02 mg/mL) infusion (Urinary Retention or Pruritus), 0.25-1 mcg/kg/hr, Intravenous, Titrated PRN, Ana Cristina Feliz MD naloxone (Narcan) injection 0.08 mg, 0.08 mg, Intravenous, PRN, Ana Cristina Feliz MD nicotine (Nicoderm CQ) 14 MG/24HR patch 1 patch, 1 patch, Transdermal, Daily, 1 patch at 11/19/22 0820 FOLLOWED BY [START ON 12/31/2022] nicotine (Nicoderm CQ) 7 MG/24HR patch 1 patch, 1 patch, Transdermal, Daily, Ana Cristina Feliz MD ondansetron ODT (Zofran-ODT) disintegrating tablet 4 mg, 4 mg, Oral, q6h PRN, Ana Cristina Feliz MD,4 mg at 11/19/22 0933 oxyCODONE (Roxicodone) immediate release tablet 10 mg, 10 mg, Oral, q4h PRN, Ana Cristina Feliz MD, 10 mg at 11/19/22 1445 pancrelipase (Creon) 6000 unit capsule, 1 capsule, Oral, TID with meals, Ana Cristina Feliz MD, 1 capsule at 11/19/22 1646 pantoprazole (Protonix) EC tablet 40 mg, 40 mg, Oral, BID AC, Ana Cristina Feliz MD, 40 mg at 11/19/22 1646 pregabalin (Lyrica) capsule 300 mg, 300 mg, Oral, BID, Angie Rosas APRN, SAMANTHA, 300 mg at 11/19/22 1040 prochlorperazine (Compazine) injection 2.5 mg, 2.5 mg, Intravenous, q6h PRN, Ana Cristina Feliz MD, 2.5 mg at 11/19/22 1112 senna (Senokot) tablet 17.2 mg, 2 tablet, Oral, Nightly PRN, Ana Cristina Feliz MD sodium chloride 0.9 % infusion, 10 mL/hr, Intravenous, Continuous, Ana Cristina Feliz MD, Last Rate:10 mL/hr at 11/19/22 0821, 10 mL/hr at 11/19/22 0821 sucralfate (Carafate) 1 GM/10ML suspension 1 g, 1 g, Oral, Before meals & nightly, Ana Cristina Feliz MD, 1 g at 11/19/22 1646 Labs (in last 24 hours): CBC: No results found for: WBC , RBC , HGB , HCT , PLT , MCV , MCH , MCHC , RDW , NRBC Differential: No results found for: WBC , NEUTOPHILPCT , LYMPHOPCT , MONOPCT , EOSPCT , ANEUT Coagulation: No results found for: INR , PT , PTT , CLFGN Renal: No results found for: NA , K , CL , CO2 , BUN , CREATININE , GLUCOSE , CALCIUM , ICAS , MG , PHOS Liver: No results found for: AST , ALT , ALPHO , BILITOT , BILIDIR Glucose: Lab Results Component Value Date PGLU 89 11/19/2022 PGLU 106 (H) 11/18/2022 Lab Results Component Value Date HGBA1C 5.3 10/18/2020 Microbiology: Results Procedure Component Value Units Date/Time Comprehensive GI Panel by PCR [[id number]] Order Status: Sent Specimen: Stool from Rectum Clostridiodes (Clostridium) difficile PCR [[id number]] Order Status: Sent Specimen: Stool from Rectum SARS-CoV-2, Flu A, Flu B, and RSV - Rapid [[id number]] Order Status: Canceled Specimen: Swab from Nasopharynx Imaging (in last 24 hours): Assessment and plan: Principal problem: Acute on chronic pancreatitis (CMS/HCC) Principal Problem: Acute on chronic pancreatitis (CMS/HCC) Active Problems: Bipolar depression (CMS/HCC) Anxiety Fibromyalgia GERD (gastroesophageal reflux disease) Obesity Chronic pain Opiate dependence (CMS/HCC) Hypertension Nicotine dependence Marijuana use Rosibel Gayle is a 36 y.o. year-old female with a PMH of chronic pancreatitis, anxiety, fibromyalgia, duodenal ulcer and cholecystectomy (2011) due to gallstones who presented to ED due to leftupper quadrant pain w/ N/V/D. She was most recently hospitalized 11/11-11/14 for similar symptoms. Upon review of hospital records patient has been seen in the ER 24 times for similar symptoms. Acute on Chronic Pancreatitis - Onset approximately 2 days ago - Review of hospital records show 24 ER visits with multiple admissions in 2022. Most recently admitted 11/11-11/14. - CRP: 9.2, Triglycerides 161, HDL 29 and LDL 141 - CT abd/pelvis w/ contrast: no acute findings Plan - Urine amylase: - LR @ 100ml/hr - Acute Pain consulted for FINANCIAL AID DIRECTOR pump - ACHS FS, Strict I&O, - Hold antibiotic for now with no clear source of infection. If patient declines or becomes febrile, consider further work up and broad spectrum antibiotics. - Advance as tolerated - PBS GI consulted. Recommend outpatient workup, Ambulatory referral placed. Chronic Medical Conditions: Fibromyalgia w/ Chronic Pain (POA) - Patient reports LUQ at this time Plan: - Pain management: recommend multi-modality approach with NSAID's, Tylenol, and opiates prn - Discontinued FINANCIAL AID DIRECTOR. Resume PO opiates with IV for severe breakthrough pain - Continue Pregablin GERD - Patient denies current symptoms - Resume home PPI and Carafate Anxiety/Depression - Denies SI/SH - PHQ2 screen negative. Mood is good - Started on Duloxetine 30mg daily titrate up as needed - PRN Ativan - Follow up with outpatient psychiatry 01/08/23 @ 10:00a.m. Obesity - Body mass index is 38.94 kg/m??. Plan: - Complicates all aspects of care - Diet and exercise education at time of discharge Tobacco use disorder with nicotine dependency (POA) - Smoking cessation counseling and NRT as needed Fluids: Electrolytes: Continue to monitor and replace as appropriate Diet: Adult diet Diet texture: Regular; GI: GI Soft DVT prophylaxis: SCDs Anticipated discharge to: Home Anticipated discharge needs: Follow up: Future Appointments Date Time Provider Department Center 12/15/2022 2:40 PM Gurdeep Rodriguez MD [facility] Code status: Full Code Family contact: Extended Emergency Contact Information Primary Emergency Contact: Asiya Flores Address: [place] [address] [place] Mobile Relation: Mother Preferred language: Qatari Clean Rice 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 No Angie Rosas APRN, DNP Department of Internal Medicine Division of Hospital Medicine Secured Chat preferred * Hospital Course - Angie Rosas APRN, DNP - 11/19/2022 12:30 PM EDT Rosibel Gayle is a 36 y.o. year-old female with a PMH of chronic pancreatitis, anxiety, fibromyalgia, duodenal ulcer and cholecystectomy (2011) due to gallstones who presented to ED due to leftupper quadrant pain w/ N/V/D. She was most recently hospitalized 11/11-11/14 for similar symptoms. Upon review of hospital records patient has been seen in the ER 24 times for similar symptoms. Acute LUQ Abdominal Pain with N/V/D - Differential diagnosis includes but not limited to: acute on chronic pancreatitis vs. Cannabis Hyperemesis Syndrome vs. Cyclic Vomiting Syndrome vs. infectious vs. Gastritis vs. Diverticulitis vs. Nephrolithiasis vs. Psychogenic - Onset approximately 2 days ago - Review of hospital records show 24 ER visits with multiple admissions in 2022. Most recently admitted 11/11-11/14. - CRP: 9.2, Triglycerides 161, HDL 29 and LDL 141 - UDS presumed positive for cannabinoid, opiates and oxycodone - CT abd/pelvis w/ contrast: no acute findings Plan - A1C: 5.2 - Hold antibiotic for now with no clear source of infection. If patient declines or becomes febrile, consider further work up and broad spectrum antibiotics. - Advance as tolerated. Recommend low fat - PBS GI appointment 12/15 @ 2:40p.m. Chronic Medical Conditions: Fibromyalgia w/ Chronic Pain (POA) - Patient reports LUQ at this time Plan: - Pain management: recommend multi-modality approach with scheduled NSAID and Tylenol, heat packs, topicals (diclofenac or lidocaine patches) w/ Oxycodone 5- 10mg q6h prn - Continue Pregablin - Referral to Ambulatory [facility] Management Clinic GERD - Patient denies current symptoms - Resume home Creon, PPI and Carafate Anxiety/Depression - Denies SI/SH - PHQ2 screen negative. Mood is good - Continue Duloxetine 30mg daily titrate up as needed - Hydroxyzine 25mg q6h PRN - PRN Ativan reduced to 0.5-1mg q 12hours PRN - Follow up with outpatient psychiatry 01/08/23 @ 10:00a.m. - Encourage counseling and horse therapy Obesity - Body mass index is 38.94 kg/m??. - Complicates all aspects of care - Diet and exercise education at time of discharge Tobacco use disorder with nicotine dependency (POA) - Smoking cessation counseling and NRT as needed * Consults - Dipika Hernandez RN - 11/19/2022 5:26 AM EDT Acute Pain Service Follow-Up Evaluation Rosibel Gayle is a 36 y.o. female Pain Team Recommendations to Primary service on IV FINANCIAL AID DIRECTOR or Epidural from daily Follow-Up: Follow-Up: Acute Pain service will continue to follow and adjust as needed. Visit Type: Routine Current Analgesic Treatments: Inpatient Analgesics Active Medications Medication Name Dose Route Frequency acetaminophen (Tylenol) tablet 1,000 mg 1,000 mg Oral q6h PRN for mild pain HYDROmorphone 1 mg/mL FINANCIAL AID DIRECTOR (naive protocol) no dose Intravenous Continuous HYDROmorphone bolus dose 0.2-0.8 mg 0.2-0.8 mg Intravenous q15 min PRN for severe pain ketorolac (Toradol) injection 15 mg 15 mg Intravenous q6h PRN for moderate pain, severe pain naloxone (Narcan) 2 mg in sodium chloride 0.9 % 100 mL (0.02 mg/mL) infusion (Urinary Retention or Pruritus) 0.25-1 mcg/kg/hr Intravenous Titrated PRN for urinary retention, itching Rate: 1.33-5.3 mL/hr naloxone (Narcan) injection 0.08 mg 0.08 mg Intravenous PRN for respiratory depression, for respiratory rate < 8. oxyCODONE (Roxicodone) immediate release tablet 10 mg 10 mg Oral q4h PRN for moderate pain, severe pain Future Medications Medication Name Dose Route Frequency IVPCA Dilaudid 1mg/ml 0.2mg q 6 minute++Acute on chronic pancreatitis DUAL System FINANCIAL AID DIRECTOR's Currently Infusing Blood pressure 107/79, pulse 76, temperature 36.5 ??C (97.7 ??F), temperature source Oral, resp. rate 18, height 1.651 m (5' 5 ), weight 106 kg (234 lb), SpO2 100 %, not currently . Medications IVPCA Dilaudid 1mg/ml 0.2mg q 6 minute++Acute on chronic pancreatitis HYDROmorphone HCl, lactated Ringer's, 100 mL/hr, Last Rate: 100 mL/hr (11/18/22 1553) naloxone, 0.25-1 mcg/kg/hr sodium chloride, 10 mL/hr, Last Rate: 10 mL/hr (11/18/22 1728) Implants No active implants to display in this view. Please Contact Acute Pain Service with any additional questions or concerns via [employer] Secure Chat orpage [phone].Acute Pain Service Initial Assessment Rosibel Gayle is a 36 y.o. female Pertinent History of Current Problem: Problem List Items Addressed This Visit Digestive * (Principal) Acute on chronic pancreatitis (CMS/HCC) - Primary Relevant Orders Discharge Ambulatory referral to Gastroenterology Pertinent Home Medications: Prior to Admission medications Medication Sig Start Date End Date Taking? Authorizing Provider acetaminophen (Tylenol) 500 MG tablet Take 2 tablets (1,000 mg) by mouth every 6 (six) hours if needed for pain. Yes Alma Andujar MD cholecalciferol (Vitamin D-3) 50 MCG (2000 UT) capsule Take 1 capsule (2,000 Units) by mouth 1 (one) time each day. Yes Alma Andujar MD cyanocobalamin 1000 MCG tablet Take 1 tablet (1,000 mcg) by mouth 1 (one) time each day. Yes Alma Andujar MD famotidine (Pepcid) 20 MG tablet Take 1 tablet (20 mg) by mouth 2 (two) times a day. 11/14/22 12/14/22 Yes Elena Nixon MD LORazepam (Ativan) 2 MG tablet Take 1 tablet (2 mg) by mouth 2 (two) times a day for 5 days. 11/14/22 11/19/22 Yes Elena Nixon MD ondansetron ODT (Zofran-ODT) 4 MG disintegrating tablet Take 1 tablet (4 mg) by mouth every 8 (eight) hours if needed for nausea or vomiting. Yes Alma Andujar MD pancrelipase, [id number], (Creon) 6000-04477 units capsule Take 1 capsule by mouth 3 (three) times a day with meals. 11/14/22 01/13/23 Yes Elena Nixon MD pantoprazole (Protonix) 40 MG EC tablet Take 1 tablet (40 mg) by mouth 2 (two) times a day. Do not crush, chew, or split. Yes Alma Andujar MD pregabalin (Lyrica) 300 MG capsule Take 1 capsule (300 mg) by mouth 2 (two) times a day. Yes Alma Andujar MD prochlorperazine (Compazine) 10 MG tablet Take 1 tablet (10 mg) by mouth every 6 (six) hours if needed for nausea or vomiting. 11/14/22 01/13/23 Yes Elena Nixon MD promethazine (Phenergan) 25 MG tablet Take 1 tablet (25 mg) by mouth every 6 (six) hours if needed for nausea or vomiting. Yes Alma Andujar MD sucralfate (Carafate) 1 GM/10ML suspension Take 10 mL (1 g) by mouth 4 (four) times a day. Yes Alma Andujar MD MELATONIN PO Take 1 tablet by mouth at night if needed. Alma Andujar MD methylPREDNISolone (Medrol Dospak) 4 MG tablets Take 1 tablet (4 mg) by mouth 1 (one) time. Follow schedule on package instructions Alma Andujar MD naloxone (Narcan) 4 mg/0.1 mL nasal spray 1. Give 1 spray in nostril for no/slow breathing or cannot wake after opioid use 2. Call 911 3. Repeat in other nostril if symptoms continue 1 spray 11/14/22 11/14/23 Elena Nixon MD oxyCODONE (Roxicodone) 10 MG immediate release tablet Take 1 tablet (10 mg) by mouth every 6 (six) hours if needed for moderate pain for up to 3 days. 11/14/22 11/17/22 Elena Nixon MD permethrin (Elimite) 5 % cream Apply 1 Application topically 1 (one) time. To affected areas Alma Andujar MD amitriptyline (Elavil) 25 MG tablet Take 1 tablet (25 mg) by mouth every night. Patient taking differently: Take 1 tablet (25 mg) by mouth at night if needed for sleep. 07/24/22 11/18/22 Francesca Perdomo MD Ascorbic Acid (vitamin C) 250 MG tablet Take 1 tablet (250 mg) by mouth 1 (one) time each day. 11/18/22 Alma Andujar MD ibuprofen 200 MG tablet Take 3 tablets (600 mg) by mouth every 6 (six) hours if needed for mild pain. 11/18/22 Alma Andujar MD lactulose (Chronulac) 10 GM/15ML solution Take 30 mL (20 g) by mouth 1 (one) time each day if needed. 11/18/22 Alma Andujar MD LORazepam (Ativan) 2 MG tablet Take 1 tablet (2 mg) by mouth 2 (two) times a day. 11/14/22 Alma Andujar MD ondansetron ODT (Zofran-ODT) 4 MG disintegrating tablet Take 1 tablet (4 mg) by mouth every 6 (six)hours if needed for nausea. 11/17/22 11/18/22 Carter Donis MD prochlorperazine (Compazine) 10 MG tablet Take 1 tablet (10 mg) by mouth every 6 (six) hours if needed for nausea or vomiting. 11/14/22 Alma Andujar MD promethazine (Phenergan) 25 MG tablet Take 1 tablet (25 mg) by mouth every 6 (six) hours if needed for nausea or vomiting for up to 5 days. 11/07/22 11/14/22 Quan Cooley APRN Pain medications prior to consult: Inpatient Analgesics Active Medications Medication Name Dose Route Frequency acetaminophen (Tylenol) tablet 1,000 mg 1,000 mg Oral q6h PRN for mild pain HYDROmorphone 1 mg/mL FINANCIAL AID DIRECTOR (naive protocol) no dose Intravenous Continuous HYDROmorphone bolus dose 0.2-0.8 mg 0.2-0.8 mg Intravenous q15 min PRN for severe pain ketorolac (Toradol) injection 15 mg 15 mg Intravenous q6h PRN for moderate pain, severe pain naloxone (Narcan) 2 mg in sodium chloride 0.9 % 100 mL (0.02 mg/mL) infusion (Urinary Retention or Pruritus) 0.25-1 mcg/kg/hr Intravenous Titrated PRN for urinary retention, itching Rate: 1.33-5.3 mL/hr naloxone (Narcan) injection 0.08 mg 0.08 mg Intravenous PRN for respiratory depression, for respiratory rate < 8. oxyCODONE (Roxicodone) immediate release tablet 10 mg 10 mg Oral q4h PRN for moderate pain, severe pain Future Medications Medication Name Dose Route Frequency Heart Rate and Blood Pressure: Heart Rate: 97 BP: (!) 183/82 Respiratory: Resp: 16 SpO2: 94 % RT Oxygen Therapy Oxygen Therapy: None (Room air) O2 Delivery Method: Nasal cannula O2 Flow Rate (L/min): 2 L/min; O2 Delivery Method: Nasal cannula Temp: 36.8 ??C (98.3 ??F) Labs: Labs in last 18 hours CBC WBC ?? Hb ?? Plt ?? Hct ?? ANC ?? INR ??, PTT ??, Anti-Xa ?? BMP Na ?? Cl ?? BUN ?? Glu ?? K ?? Co2 ?? Cr ?? Ca ?? iCa ?? Mg ??, Phos ?? Lactate ?? LFT AST ?? AlkPhos ?? T Prot ?? ALK ?? Bili ?? Alb ?? D.Bili ?? Allergies: Allergies Allergen Reactions Droperidol Other - please document in the comment field Experienced an acute dystonic reaction treated with diphenhydramine Tramadol Rash and Dizziness Patient described previously experiencing panic attacks too. Medical History: Past Medical History: Diagnosis Date Other specified health status Patient denies medical problems Unspecified disorder of nose and nasal sinuses Sinus problem Unspecified osteoarthritis, unspecified site Arthritis Substance Use: Social History Tobacco Use Smoking Status Every Day Packs/day: 1.00 Years: 15.00 Total pack years: 15.00 Types: Cigarettes Smokeless Tobacco Never Vaping Use Vaping Use: Never used reports that she has been smoking cigarettes. She has a 15.00 pack-year smoking history. She has never used smokeless tobacco. Social History Substance and Sexual Activity Alcohol Use Not Currently reports that she does not currently use alcohol. Social History Substance and Sexual Activity Drug Use Yes Types: Marijuana Comment: a few times a month reports current drug use. Drug: Marijuana. Implants No active implants to display in this view. Pain Assessment: Pain Rating (0-10): sleeping Pain Information: Patient accessing 14 doses in 8 hours for 2.8 mg Dilaudid. Inpatient Analgesics Active Medications Medication Name Dose Route Frequency acetaminophen (Tylenol) tablet 1,000 mg 1,000 mg Oral q6h PRN for mild pain HYDROmorphone 1 mg/mL FINANCIAL AID DIRECTOR (naive protocol) no dose Intravenous Continuous HYDROmorphone bolus dose 0.2-0.8 mg 0.2-0.8 mg Intravenous q15 min PRN for severe pain ketorolac (Toradol) injection 15 mg 15 mg Intravenous q6h PRN for moderate pain, severe pain naloxone (Narcan) 2 mg in sodium chloride 0.9 % 100 mL (0.02 mg/mL) infusion (Urinary Retention or Pruritus) 0.25-1 mcg/kg/hr Intravenous Titrated PRN for urinary retention, itching Rate: 1.33-5.3 mL/hr naloxone (Narcan) injection 0.08 mg 0.08 mg Intravenous PRN for respiratory depression, for respiratory rate < 8. oxyCODONE (Roxicodone) immediate release tablet 10 mg 10 mg Oral q4h PRN for moderate pain, severe pain Future Medications Medication Name Dose Route Frequency IVPCA Dilaudid 1mg/ml 0.2mg q 6 minute++Acute on chronic pancreatitis Please Contact Acute Pain Service with any additional questions or concerns via [employer] Secure Chat orpage [phone].Acute Pain Service Follow-Up Evaluation Rosibel Gayle is a 36 y.o. female Visit Type: Routine Current Pain Treatment: Blood pressure 107/79, pulse 76, temperature 36.5 ??C (97.7 ??F), temperature source Oral, resp. rate 18, height 1.651 m (5' 5 ), weight 106 kg (234 lb), SpO2 100 %, not currently . Medications HYDROmorphone HCl, lactated Ringer's, 100 mL/hr, Last Rate: 100 mL/hr (11/18/22 1553) naloxone, 0.25-1 mcg/kg/hr sodium chloride, 10 mL/hr, Last Rate: 10 mL/hr (11/18/22 8728) IVPCA Dilaudid 1mg/ml 0.2mg q 6 minute++Acute on chronic pancreatitis Follow-Up: Follow-up reason: APS rounds Epidural Site Check Type: procedural/ post-procedural Pain in tolerable levels per the patient. Acute Pain Service Comments: Epidural catheter was discontinued yesterday. Site WNL today. Acute pain service will sign off. Page acute pain service on [phone] if any questions. Acute Pain Service Follow-Up Evaluation Rosibel Gayle is a 36 y.o. female Pain Team Recommendations to Primary service on IV FINANCIAL AID DIRECTOR or Epidural from daily rounding assessments: Patient to continue current iv user experience architect or epidural regiment, no changes. Follow-Up: Follow-up reason: APS rounds Location: abdomen Type: procedural/ post-procedural Pain Rating (0-10): sleeping Acute Pain Service Comments: Pain Service comments: Will continue Patient Controlled Analgesia infusion until primary service decides it is appropriate to discontinue. Patient received 14 doses in 8 hours with Patient ControlledAnalgesia infusion for 1.2 mg Dilaudid. Follow-Up: Follow-Up: Acute Pain service will continue to follow and adjust as needed. Visit Type: Routine Problem List Items Addressed This Visit Digestive * (Principal) Acute on chronic pancreatitis ([facility]) - Primary Relevant Orders Discharge Ambulatory referral to [facility] Pain Medications acetaminophen (Tylenol) 500 MG tablet Take 2 tablets (1,000 mg) by mouth every 6 (six) hours if needed for pain. pregabalin (Lyrica) 300 MG capsule Take 1 capsule (300 mg) by mouth 2 (two) times a day. prochlorperazine (Compazine) 10 MG tablet Take 1 tablet (10 mg) by mouth every 6 (six) hours if needed for nausea or vomiting. methylPREDNISolone (Medrol Dospak) 4 MG tablets Take 1 tablet (4 mg) by mouth 1 (one) time. Follow schedule on package instructions oxyCODONE (Roxicodone) 10 MG immediate release tablet () Take 1 tablet (10 mg) by mouth every 6 (six) hours if needed for moderate pain for up to 3 days. Current Analgesic Treatments: Inpatient Analgesics Active Medications Medication Name Dose Route Frequency acetaminophen (Tylenol) tablet 1,000 mg 1,000 mg Oral q6h PRN for mild pain HYDROmorphone 1 mg/mL FINANCIAL AID DIRECTOR (naive protocol) no dose Intravenous Continuous HYDROmorphone bolus dose 0.2-0.8 mg 0.2-0.8 mg Intravenous q15 min PRN for severe pain ketorolac (Toradol) injection 15 mg 15 mg Intravenous q6h PRN for moderate pain, severe pain naloxone (Narcan) 2 mg in sodium chloride 0.9 % 100 mL (0.02 mg/mL) infusion (Urinary Retention or Pruritus) 0.25-1 mcg/kg/hr Intravenous Titrated PRN for urinary retention, itching Rate: 1.33-5.3 mL/hr naloxone (Narcan) injection 0.08 mg 0.08 mg Intravenous PRN for respiratory depression, for respiratory rate < 8. oxyCODONE (Roxicodone) immediate release tablet 10 mg 10 mg Oral q4h PRN for moderate pain, severe pain Future Medications Medication Name Dose Route Frequency IVPCA Dilaudid 1mg/ml 0.2mg q 6 minute++Acute on chronic pancreatitis Blood pressure 107/79, pulse 76, temperature 36.5 ??C (97.7 ??F), temperature source Oral, resp. rate 18, height 1.651 m (5' 5 ), weight 106 kg (234 lb), SpO2 100 %, not currently . Medications HYDROmorphone HCl, lactated Ringer's, 100 mL/hr, Last Rate: 100 mL/hr (11/18/221552) naloxone, 0.25-1 mcg/kg/hr sodium chloride, 10 mL/hr, Last Rate: 10 mL/hr (11/18/221727) IVPCA Dilaudid 1mg/ml 0.2mg q 6 minute++Acute on chronic pancreatitis Implants No active implants to display in this view. Please Contact Acute Pain Service with any additional questions or concerns via [employer] Secure Chat orpapq [phone].Acute Pain Service Follow-Up Evaluation Rosibel Gayle is a 36 y.o. female Visit Type: Routine Current Pain Treatment: Blood pressure 107/79, pulse 76, temperature 36.5 ??C (97.7 ??F), temperature source Oral, resp. rate 18, height 1.651 m (5' 5 ), weight 106 kg (234 lb), SpO2 100 %, not currently . Medications HYDROmorphone HCl, lactated Ringer's, 100 mL/hr, Last Rate: 100 mL/hr (11/18/221552) naloxone, 0.25-1 mcg/kg/hr sodium chloride, 10 mL/hr, Last Rate: 10 mL/hr (11/18/221727) IVPCA Dilaudid 1mg/ml 0.2mg q 6 minute++Acute on chronic pancreatitis Follow-Up: Follow-up reason: APS rounds Epidural Site Check Type: procedural/ post-procedural Pain in tolerable levels per the patient. Acute Pain Service Comments: Epidural catheter was discontinued yesterday. Site WNL today. Acute pain service will sign off. Page acute pain service on [phone] if any questions. * H&P - Angie Rosas APRN, DNP - 11/18/2022 3:37 PM EDTAssociated Order(s): Consult to [facility] Images from the original note were not included. Consult to [facility] Consult performed by: Angie Rosas APRN, DNP Consult ordered by: George Tang MD Reason for consult: Acute on Chronic Pancreatitis Hospital Medicine History and Physical Chief Complaint: Nausea, Vomiting, Diarrhea w/ LUQ Abdominal Pain History of Present Illness: Rosibel Gayle is a 36 y.o. year-old female with a PMH of chronic pancreatitis, anxiety, fibromyalgia, duodenal ulcer and cholecystectomy (2011) due to gallstones who presented to ED due to leftupper quadrant pain w/ N/V/D. She was most recently hospitalized 11/11-11/14 for similar symptoms. Upon review of hospital records patient has been seen in the ER 24 times for similar symptoms. In the ER, patient received LR, anti-nausea, and pain medication. Labs significant for Lipase 139 increasedfrom 26 yesterday. UDS presumed positive for Cannabinoid, Patient endorses several days of LUQ abdominal pain, diarrhea and nausea, with 1 episode of non-bloody, non-bilious emesis. Denies fever, chil ls, chest pain, SOB, cough, or urinary symptoms. Opiates and Oxycodone. Hospital Medicine consultedfor further evaluation and management of symptoms. Review of Systems: Review of Systems Constitutional: Negative for chills, fatigue and fever. HENT: Negative for congestion, ear pain, nosebleeds, sinus pressure, sore throat and trouble swallowing. Eyes: Negative for photophobia, pain, discharge and visual disturbance. Respiratory: Negative for cough, chest tightness and shortness of breath. Cardiovascular: Negative for chest pain, palpitations and leg swelling. Gastrointestinal: Positive for abdominal pain (LUQ), diarrhea, nausea and vomiting. Negative for constipation. Endocrine: Negative for cold intolerance and heat intolerance. Genitourinary: Negative for decreased urine volume, difficulty urinating, dysuria, flank pain and frequency. Musculoskeletal: Negative for arthralgias, joint swelling and myalgias. Skin: Negative for color change, rash and wound. Allergic/Immunologic: Negative for environmental allergies and food allergies. Neurological: Negative for dizziness, seizures, syncope, weakness and headaches. Hematological: Negative for adenopathy. Does not bruise/bleed easily. Psychiatric/Behavioral: Negative for confusion, sleep disturbance and suicidal ideas. Past Medical History: Past Medical History: Diagnosis Date Anxiety Arthritis Depression Fibromyalgia Gastric erosions 04/19/2021 GERD (gastroesophageal reflux disease) Hypertension Intentional overdose ([facility]) 12/20/2021 Nicotine dependence Obesity Pancreatitis Surgical History: Past Surgical History: Procedure Laterality Date CHOLECYSTECTOMY ERCP ESOPHAGOGASTRODUODENOSCOPY HAND SURGERY Family History: Family History Problem Relation Name Age of Onset Hypertension Mother No Known Problems Father Social Determinants of Health: Social Determinants of Health Tobacco Use: High Risk (11/18/2022) Patient History Smoking Tobacco Use: Every Day Smokeless Tobacco Use: Never Passive Exposure: Not on file Alcohol Use: Low Risk (11/11/2022) CAGE ASSESSMENT Cage unable to access: Not on file Cage max number of drinks: Not on file Cage Beverages a week: Not on file Cage Questionnaire cut down: 0 Cage questionnaire annoyed: 0 Cage questionnaire guilty: 0 Cage questionnaire eye vice president of manufacturing: 0 Cage Overall score: 0 Financial Resource Strain: Not on file Food Insecurity: Not on file Transportation Needs: Not on file Physical Activity: Not on file Stress: Not on file Social Connections: Not on file Intimate Partner Violence: Not on file Depression: Not at risk (11/21/2020) PHQ-2 PHQ-2 Score: 2 Housing Stability: Not on file Utilities: Not on file Travel History: Relevant Travel History: Travel Screening Question Response In the last 10 days, have you been in contact with someone who was confirmed or suspected to have Coronavirus/COVID-19? -- Have you had a COVID-19 viral test in the last 10 days? -- Do you have any of the following new or worsening symptoms? Abdominal pain;Vomiting;Diarrhea Have you traveled internationally or domestically in the last month? No Travel History Travel since 10/18/22 No documented travel since 10/18/22 Allergies: Droperidol and Tramadol Medications: Current Outpatient Medications Medication Instructions acetaminophen (TYLENOL) 1,000 mg, Oral, Every 6 hours PRN amitriptyline (ELAVIL) 25 mg, Oral, Nightly cholecalciferol (VITAMIN D-3) 2,000 Units, Oral, Daily cyanocobalamin (VITAMIN B-12) 1,000 mcg, Oral, Daily famotidine (PEPCID) 20 mg, Oral, 2 times daily ibuprofen 600 mg, Oral, Every 6 hours PRN lactulose (CHRONULAC) 20 g, Oral, Daily PRN LORazepam (ATIVAN) 2 mg, Oral, 2 times daily naloxone (Narcan) 4 mg/0.1 mL nasal spray 1 spray ondansetron ODT (ZOFRAN-ODT) 4 mg, Oral, Every 8 hours PRN ondansetron ODT (ZOFRAN-ODT) 4 mg, Oral, Every 6 hours PRN pancrelipase, Bal-Oasb-Xivi, (Creon) 6000-15786 units capsule 1 capsule, Oral, 3 times daily with meals pantoprazole (PROTONIX) 40 mg, Oral, 2 times daily, Do not crush, chew, or split. permethrin (Elimite) 5 % cream 1 Application, Topical, Once, To affected areas pregabalin (LYRICA) 300 mg, Oral, 2 times daily prochlorperazine (COMPAZINE) 10 mg, Oral, Every 6 hours PRN sucralfate (CARAFATE) 1 g, Oral, 4 times daily vitamin C 250 mg, Oral, Daily Physical Exam: Visit Vitals BP 94/66 (BP Location: Left arm, Patient Position: Lying) Pulse 85 Temp 36.7 ??C (98 ??F) (Oral) Resp 18 Ht 1.651 m (5' 5 ) Wt 106 kg (234 lb) SpO2 98% BMI 38.94 kg/m?? OB Status Having periods Smoking Status Every Day BSA 2.2 m?? Physical Exam Vitals reviewed. Constitutional: General: She is not in acute distress. Appearance: Normal appearance. She is obese. HENT: Head: Normocephalic and atraumatic. Right Ear: External ear normal. Left Ear: External ear normal. Nose: Nose normal. Mouth/Throat: Mouth: Mucous membranes are moist. Pharynx: Oropharynx is clear. Eyes: Extraocular Movements: Extraocular movements intact. Conjunctiva/sclera: Left eye: Left conjunctiva is injected. Pupils: Pupils are equal, round, and reactive [...] of motion and neck supple. No tenderness. Right lower leg: No edema. Left lower leg: No edema. Lymphadenopathy: Cervical: No cervical adenopathy. Skin: General: Skin is warm and dry. Coloration: Skin is not jaundiced. Findings: No rash. Neurological: General: No focal deficit present. Mental Status: She is alert and oriented to person, place, and time. Motor: No weakness. Psychiatric: Mood and Affect: Affect is tearful. Behavior: Behavior normal. Thought Content: Thought content normal. Labs (in last 18 hours): CBC WBC 6.10 Hb 10.9 (L) Plt 210 Hct 34.2 ANC 3.88 INR 1.1, PTT ??, Anti-Xa ?? BMP Na 134 (L) Cl 96 (L) BUN 8 Glu 116 (H) K 3.5 (L) Co2 26 Cr 0.65 Ca 9.0 iCa ?? Mg 1.8 (L), Phos ?? Lactate ?? LFT AST 46 (H) AlkPhos 104 T Prot 6.5 ALK 71 (H) Bili 0.4 Alb 4.1 D.Bili ?? Microbiology: Results Procedure Component Value Units Date/Time Comprehensive GI Panel by PCR [[id number]] Order Status: Sent Specimen: Stool from Rectum Clostridiodes (Clostridium) difficile PCR [[id number]] Order Status: Sent Specimen: Stool from Rectum SARS-CoV-2, Flu A, Flu B, and RSV - Rapid [[id number]] Order Status: Canceled Specimen: Swab from Nasopharynx Imaging (in last 24 hours): Encounter Date: 11/18/22 ECG Adult Result Value EKG DIAGNOSIS CLASS Abnormal Ventricular Rate [address] Interval 130 QRSD Interval 86 QT Interval 420 QTC Interval 446 P [place] 29 R [place] 30 T Wave [place] 8 Diagnosis Normal sinus rhythm Diagnosis Cannot rule out Diagnosis Anterior infarct Diagnosis , age undetermined Diagnosis Abnormal ECG *Note: Due to a large number of results and/or encounters for the requested time period, some results have not been displayed. A complete set of results can be found in Results Review. Assessment and plan: Principal problem: Acute on chronic pancreatitis (CMS/HCC) Principal Problem: Acute on chronic pancreatitis (CMS/HCC) Active Problems: Bipolar depression (CMS/HCC) Anxiety Fibromyalgia GERD (gastroesophageal reflux disease) Obesity Chronic pain Opiate dependence (CMS/HCC) Hypertension Nicotine dependence Acute on Chronic Pancreatitis - Onset approximately 2 days ago - Review of hospital records show 24 ER visits with multiple admissions in 2022. Most recently admitted 11/11-11/14. - T. Bili: 0.4, AST: 46 (H), ALT: 71 (H), Alk Phos: 104, Ammonia: ??, Lipase: 139 (H) - WBC: 6.10, ANC: 3.88 H/H 10.9 (L)/34.2, MCV: 83, MCHC : 31.9, Plt: 210 - Cr: 0.65, BUN: 8 - Calcium: 9.0, Alb 4.1 - K: 3.5 (L) - UDS presumed positive for Cannabinoid, Opiate and Oxycodone - CT abd/pelvis w/ contrast: no acute findings Plan - Urine amylase: - LR @ 100ml/hr - Acute Pain consulted for FINANCIAL AID DIRECTOR pump - ACHS FS, Strict I&O, - Hold antibiotic for now with no clear source of infection. If patient declines or becomes febrile, consider further work up and broad spectrum antibiotics. - Clear liquid diet. Advance as tolerated - PBS GI consulted. Recommend outpatient workup, Ambulatory referral placed. Chronic Medical Conditions: Fibromyalgia w/ Chronic Pain (POA) - Patient reports LUQ at this time Plan: - Pain management: recommend multi-modality approach with NSAID's, Tylenol, and opiates prn - Acute Pain consulted for FINANCIAL AID DIRECTOR pump - Continue Pregablin GERD - Patient denies current symptoms - Resume home PPI and Carafate Anxiety/Depression - Denies SI/SH - PHQ2 screen negative. Mood is good - PRN Ativan Obesity - Body mass index is 38.94 kg/m??. Plan: - Complicates all aspects of care - Diet and exercise education at time of discharge Tobacco use disorder with nicotine dependency (POA) - Smoking cessation counseling and NRT as needed Fluids: lactated Ringer's @ 100 mL/hr, encourage PO intake Electrolytes: Monitor and replace as indicated Nutrition Adult diet Diet texture: Clear liquid DVT prophylaxis SCDs only Code status Full Code Angie Rosas APRN, DNP Department of Internal Medicine Division of Hospital Medicine Secured Chat preferred * ED Provider Notes - Tom Cao MD - 11/18/2022 8:47 AM EDT HPI Chief Complaint Patient presents with Abdominal Pain Room/Bed: 581/581A History of Present Illness 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 by: Patient and medical records tower foreman used: Ibis Rosibel Gayle is a 36 y.o. female with PMH of chronic pancreatitis, anxiety, fibromyalgia, duodenal ulcer and cholecystectomy (2011) due to gallstones who presents to the emergency department withchief complaint of 10/10 epigastric abdominal pain, N/V/D that started 1-week ago. Patient states she was initially admitted to [facility] last week for pancreatitis with some improvement of her symptoms at that time. She wished to be discharged because she wanted to attend her son's recital. Her pain was tolerable for a day, but became more unbearable Thursday. She went back to [facility] yesterday where she was given Morphine with minimal relief of symptoms. She was discharged with Oxycodone without relief of symptoms. Denies fevers, chest pain, dyspnea, bloody stools, mucous stools, dysuria, hematuria. abd pain with N/V/D for 2 days Welch Coma Scale Score: 15 Patient History Patient History Past Medical History: Diagnosis Date Anxiety Arthritis Depression Fibromyalgia Gastric erosions 04/19/2021 GERD (gastroesophageal reflux disease) Hypertension Intentional overdose ([facility]) 12/20/2021 Nicotine dependence Obesity Pancreatitis [...] Marijuana Comment: a few times a month none Occupational Exposure Concern Occupational Exposure No Employer: No address on file. Immunization History reviewed VACCINE/DOSE DATE DATE DATE Flu 11/21/2019 12/27/2020 01/20/2022 Tetanus 06/25/2021 Pneumovax Shingles Allergies Allergen Reactions Droperidol Other - please document in the comment field Experienced an acute dystonic reaction treated with diphenhydramine Tramadol Rash and Dizziness Patient described previously experiencing panic attacks too. Review of Systems Review of Systems Review of Systems Constitutional: Negative for chills and fever. HENT: Negative for ear pain and sore throat. Eyes: Negative for pain and visual disturbance. Respiratory: Negative for cough, shortness of breath and stridor. Cardiovascular: Negative for chest pain and palpitations. Gastrointestinal: Positive for abdominal pain, diarrhea, nausea and vomiting. Negative for anal bleeding. Genitourinary: Negative for dysuria and hematuria. Musculoskeletal: Negative for arthralgias and back pain. Skin: Negative for color change and rash. Neurological: Negative for seizures and syncope. All other systems reviewed and are negative. Physical Exam Physical Exam ED Triage Vitals [11/18/22 0852] Temp Heart Rate Resp BP 36.3 ??C (97.4 ??F) 92 16 113/72 SpO2 Temp Source Heart Rate Source Patient [...] tenderness in the epigastric area. There is guarding. Musculoskeletal: General: No swelling. Cervical back: Neck supple. Skin: General: Skin is warm and dry. Capillary Refill: Capillary refill takes less than 2 seconds. Neurological: Mental Status: She is alert. Psychiatric: Mood and Affect: Mood normal. ED Course & MDM Medical Decision Making ED Course as of 11/21/22 0644 ThuNov 18, 2022 1134 Lipase(!): 139 [JA] 1134 WBC: 6.10 [JA] ED Course User Index [JA] Tom Cao MD MDM Amount and/or Complexity of Data Reviewed Decide to obtain previous medical records or to obtain history from someone other than the patient:yes Rosibel Gayle is a 36 y.o. female presenting for evaluation of Abdominal Pain. Differential diagnosis includes but is not limited to gastroenteritis, gastritis, peptic ulcer disease, IBS, gastrointestinal obstruction or perforation, appendicitis, pancreatitis, urinary system conditions (UTI, kidney stones), abdominal aortic aneurysm, musculoskeletal conditions (muscle strain), metabolic and systemic conditions (DKA, porphyria), and psychological factors Plan: CBC, CMP, lipase, magnesium, U/A, and test were ordered. CBC within normal limits. CMP revealed mild elevation of AST and ALT. Lipase was elevated to 139 consistent with pancreatitis.Magnesium was mildly decreased to 1.8. U/A was within normal limits. test was negative. We provided patient with 1L of lactated ringer's for fluid replacement given her vomiting and diarrhea. Zofran and Phenergan for nausea. Dilaudid 1mg injection decreased patient's pain from a 10/10 to a 6/10. Labs interpreted by me and show WBC of 6.1, hgb 10.9, coags within normal limits, slight elevation in AST of 46 and ALT of 71, lipase of 139 up from 26 yesterday She has received multiple antiemetics and pain control with minimal symptom improvement Discussed pt with medicine who will admit for further evaluation and management Impression: Complete Disposition: Admit Ana Cristina Feliz MD for Acute on chronic pancreatitis ([facility]) [K85.90, K86.1]. Labs in last 18 hours Abnormal Labs Reviewed COMPREHENSIVE METABOLIC PANEL, PLASMA - Abnormal; Notable for the following components: Result Value Glucose, Plasma 116 (*) Sodium, Plasma 134 (*) Potassium, Plasma 3.5 (*) Chloride, Plasma 96 (*) AST, Plasma 46 (*) ALT, Plasma 71 (*) All other components within normal limits MAGNESIUM, PLASMA - Abnormal; Notable for the following components: Magnesium, Plasma 1.8 (*) All other components within normal limits LIPASE, PLASMA - Abnormal; Notable for the following components: Lipase, Plasma 139 (*) All other components within normal limits CBC WITH AUTO DIFFERENTIAL - Abnormal; Notable for the following components: HGB 10.9 (*) RDW 16.3 (*) All other components within normal limits Narrative: Therapeutic decision making should be based on absolute values, rather than percentages. LIPID PROFILE, PLASMA - Abnormal; Notable for the following components: HDL 29 (*) Triglycerides, Plasma 161 (*) LDL, Calculated 141 (*) All other components within normal limits C-REACTIVE PROTEIN, PLASMA - Abnormal; Notable for the following components: CRP, Plasma 9.2 (*) All other components within normal limits Narrative: This CRP test is appropriate for assessment of infection, systemic inflammation and/or tissue injury. To assess cardiovascular disease risk order high sensitivity CRP (CRPH). POCT GLUCOSE METER UNSOLICITED RESULTS - Abnormal; Notable for the following components: POCT Glucose 119 (*) All other components within normal limits POCT GLUCOSE METER UNSOLICITED RESULTS - Abnormal; Notable for the following components: POCT Glucose 106 (*) All other components within normal limits POCT GLUCOSE METER UNSOLICITED RESULTS - Abnormal; Notable for the following components: POCT Glucose 106 (*) All other components within normal limits POCT GLUCOSE METER UNSOLICITED RESULTS - Abnormal; Notable for the following components: POCT Glucose 111 (*) All other components within normal limits Imaging US Abdomen Focused Region Pancreas, Liver Result Date: 10/26/2022 Impression: Negative right upper quadrant abdominal ultrasound. CRITICAL RESULT: No. COMMUNICATION:Per this written report. Drafted by Marce Bellamy MD on 10/26/2022 10:21 PM Final report signed by Marce Bellamy MD on 10/26/2022 10:[address] Abdomen Pelvis w IV Contrast Result Date: 10/18/2022 Impression: No acute findings. CRITICAL RESULT: No. COMMUNICATION: Per this written report. Draftedby Dillon Pendleton MD on 10/18/2022 6:19 PM Final report signed by Dillon Pendleton MD on 10/18/2022 6:[address] Abdomen Pelvis w IV Contrast Final Result No acute process to explain the patient's symptoms. Other findings as above CRITICAL RESULT: No. COMMUNICATION: Per this written report. Drafted by Miguelito Sandoval MD on 11/18/2022 6:20 PM Final report signed by Miguelito Sandoval MD on 11/18/2022 6:22 PM Medications/Orders/Consults Medications pantoprazole (Protonix) EC tablet 40 mg (40 mg Oral Given 11/20/221654) sucralfate (Carafate) 1 GM/10ML suspension 1 g (1 g Oral Given 11/20/222002) pancrelipase (Creon) 6000 unit capsule (1 capsule Oral Given 11/20/221654) naloxone (Narcan) injection 0.08 mg (has no administration in time range) naloxone (Narcan) 2 mg in sodium chloride 0.9 % 100 mL (0.02 mg/mL) infusion (Urinary Retention or Pruritus) (has no administration in time range) oxyCODONE (Roxicodone) immediate release tablet 10 mg (10 mg Oral Given 11/21/22 0404) ondansetron ODT (Zofran-ODT) disintegrating tablet 4 mg (4 mg Oral Given 11/20/22 1115) prochlorperazine (Compazine) injection 2.5 mg (2.5 mg Intravenous Given 11/20/22 1806) melatonin tablet 6 mg (has no administration in time range) senna (Senokot) tablet 17.2 mg (has no administration in time range) nicotine (Nicoderm CQ) 14 MG/24HR patch 1 patch (1 patch Transdermal Medication Applied 11/20/22 08) Followed by nicotine (Nicoderm CQ) 7 MG/24HR patch 1 patch (has no administration in time range) DULoxetine (Cymbalta) DR capsule 30 mg (30 mg Oral Given 11/20/22 08) pregabalin (Lyrica) capsule 300 mg (300 mg Oral Given 11/20/222002) LORazepam (Ativan) tablet 1 mg (1 mg Oral Given 11/20/222002) HYDROmorphone (Dilaudid) injection 0.5 mg (0.5 mg Intravenous Given 11/21/22 0308) celecoxib (CeleBREX) capsule 200 mg (200 mg Oral Given 11/20/222058) acetaminophen (Tylenol) tablet 1,000 mg (1,000 mg Oral Not Given 11/21/22 0513) lactated Ringer's infusion 1,000 mL (0 mL Intravenous Stopped 11/18/22 1522) HYDROmorphone (Dilaudid) injection 1 mg (1 mg Intravenous Given 11/18/22 1104) ondansetron (Zofran) injection 4 mg (4 mg Intravenous Given 11/18/22 1103) promethazine (Phenergan) injection 25 mg (25 mg Intravenous Given 11/18/22 1143) HYDROmorphone (Dilaudid) injection 1 mg (1 mg Intravenous Given 11/18/22 1248) iohexol (OMNIPaque) 300 MG/ML injection 100 mL (100 mL Intravenous Given 11/18/22 1754) Orders Placed This Encounter Procedures CT Abdomen Pelvis w IV Contrast CMP Magnesium Lipase CBC w/diff PT-INR Urinalysis with reflex microscopic hCG qualitative Drug Abuse Screen, Urine THC Urine Confirm LCMSMS Opiates Confirm Urine OXYCODONE CONFIRMATION,URINE Lipid panel Ethyl Alcohol Plasma C-reactive protein Discharge Ambulatory referral to Gastroenterology Discharge Ambulatory referral to Pain Medicine Adult diet Diet texture: Regular; Fat restriction: Low Fat; GI: GI Soft Mobility Orders Notify physician (specify parameters) Intake and output Daily weights Sequential compression device Okay To Give Nicotine Replacement Notify Provider Vital Signs Assess pain Assess sedation level Maintain IV access Patient education (specify) Other (enter comments) Update First Call Provider Assignment Vital Signs Pulse Oximetry Full code Consult to [facility] Medicine - Jaime Inpatient Consult to Pain Team Now Meal Tray Request for Patient Nursing oxygen orders - 92% or more POCT Glucose ECG Adult Admit to inpatient ED to floor bed request The following services were consulted: IP CONSULT TO HOSPITAL MEDICINE JAIME IP CONSULT TO PAIN TEAM The following providers were documented as assigned to this patient during this visit: Sincerely, George Tang MD Chilet, MD Nash Quigley Jonathan R, MD Kayser, Philip M, MD Please note: This document was created using [employer] Direct voice recognition software. As a result errors may occur. When identified, these cadmium plater errors have been corrected. While every attempt is made to correct errors during dictation, errors may still exist. I saw and evaluated the patient with the medical student. I discussed the case with the medical student and agree with the findings and plan as documented. Tom Cao MD Resident 11/21/22 0645 Cosigned by George Tang MD at 11/23/2022 9:44 PM EDT Associated attestation - George Tang MD - 11/23/2022 9:44 PM EDT I, George Tang MD, personally verified the history, examined the patient, discussed with thestudent and resident and performed the medical decision making. I agree with the documentation and plan of care. * ED Triage Notes - Mary Astudillo RN - 11/18/2022 8:47 AM EDT Having abd pain with N/V/D for 2 days documented in this encounter Plan of Treatment Scheduled Referrals Name Type Priority Associated Diagnoses Order Schedule Discharge Ambulatory referral to Gastroenterology Outpatient Referral Routine Acute on chronic pancreatitis (CMS/HCC) 1 Occurrences starting 11/18/2022 until 05/18/2024 Discharge Ambulatory referral to Pain Medicine Outpatient Referral Routine Uncomplicated opioid dependence (CMS/HCC) Other chronic pain Fibromyalgia 1 Occurrences starting 11/20/2022 until 05/20/2024 documented as of this encounter Procedures Procedure Name Priority Date/Time Associated Diagnosis Comments POCT GLUCOSE METER UNSOLICITED RESULTS Routine 11/21/2022 9:22 AM EDT CBC WITH AUTO DIFFERENTIAL Pending Discharge 11/21/2022 8:02 AM EDT HEMOGLOBIN A1C Pending Discharge 11/21/2022 8:02 AM EDT COMPREHENSIVE METABOLIC PANEL, PLASMA Pending Discharge 11/21/2022 8:02 AM EDT POCT GLUCOSE METER UNSOLICITED RESULTS Routine 11/20/2022 8:26 PM EDT POCT GLUCOSE METER UNSOLICITED RESULTS Routine 11/20/2022 5:28 PM EDT POCT GLUCOSE METER UNSOLICITED RESULTS Routine 11/20/2022 12:58 PM EDT POCT GLUCOSE METER UNSOLICITED RESULTS Routine 11/20/2022 9:47 AM EDT POCT GLUCOSE METER UNSOLICITED RESULTS Routine 11/19/2022 9:03 PM EDT POCT GLUCOSE METER UNSOLICITED RESULTS Routine 11/19/2022 11:19 AM EDT POCT GLUCOSE METER UNSOLICITED RESULTS Routine 11/18/2022 11:25 PM EDT ETHYL ALCOHOL PLASMA Routine 11/18/2022 7:[address] ABDOMEN PELVIS W IV CONTRAST Routine 11/18/2022 6:00 PM EDT POCT GLUCOSE METER UNSOLICITED RESULTS Routine 11/18/2022 3:54 PM EDT ECG ADULT Routine 11/18/2022 3:25 PM EDT OXYCODONE CONFIRMATION,URINE Routine 11/18/2022 2:16 PM EDT OPIATES, LCMSMS, URINE Routine 11/18/2022 2:16 PM EDT DRUG ABUSE SCREEN, URINE Routine 11/18/2022 2:16 PM EDT THC URINE CONFIRM Routine 11/18/2022 2:1 6 PM EDT URINALYSIS WITH REFLEX MICROSCOPIC STAT 11/18/2022 11:37 AM EDT PROTHROMBIN TIME(PT) / INR STAT 11/18/2022 10:54 AM EDT CBC WITH AUTO DIFFERENTIAL STAT 11/18/2022 10:54 AM EDT C-REACTIVE PROTEIN, PLASMA Add-On 11/18/2022 10:54 AM EDT TEST QUALITATIVE PLASMA STAT 11/18/2022 10:54 AM EDT MAGNESIUM, PLASMA STAT 11/18/2022 10: 54 AM EDT LIPASE, PLASMA STAT 11/18/2022 10:54 AM EDT LIPID PROFILE, PLASMA Add-On 11/18/2022 10:54 AM EDT COMPREHENSIVE METABOLIC PANEL, PLASMA STAT 11/18/2022 10:54 AM EDT documented in this encounter Results * (ABNORMAL) POCT glucose meter (11/21/2022 9:22 AM EDT) POCT Glucose 106(H) 74 - 99 mg/dL 11/21/2022 9:23 AM EDT [facility] Comment:Accuracy of a glucos e result obtained from a capillary whole blood specimen relies upon adequate, non-compromised capillary blood flow. If the capillary glucose result is not consistent with the patient's clinical signs and symptoms, glucose testing should be repeated with either an arterial or venous sample on the glucometer or sent to the main labortory for testing. Comment 11/21/2022 9:23 AM EDT [facility] Air Cargo Specialist ID JiDon macario Varghese 11/21/2022 9:23 AM EDT [facility] Device ID [id number] 11/21/2022 9:23 AM EDT [facility] Specimen Type POC Capillary 11/21/2022 9:23 AM EDT [facility] Blood Capillary blood specimen / Unknown 11/21/2022 9:22 AM EDT 11/21/2022 9:23 AM EDT us Ana Cristina Feliz MD LAB POINT OF CARE TE ST DOCKED DEVICE UNSOLICITED RESULTS Final Result Performing Organization Address City/State/[facility] Co de Phone Number [facility] [address] [place] [address] * (ABNORMAL) Comprehensive metabolic panel (11/21/2022 8:02 AM EDT) Glucose, Plasma 77 74 - 99 mg/dL 11/21/2022 8:49 AM EDT [facility] BUN, Plasma 4(L) 7 - 21 mg/dL 11/21/2022 8:49 AM EDT [facility] Creatinine, Plasma 0.69 0.60 - 1.10 mg/dL 11/21/2022 8:49 AM EDT [facility] BUN/Creatinine Ratio 6 11/21/2022 8:49 AM EDT [facility] Sodium, Plasma 137 136 - 145 mmol/L 11/21/2022 8:49 AM EDT [facility] Potassium, Plasma 4.2 3.7 - 4.8 mmol/L 11/21/2022 8:49 AM EDT [facility] Chloride, Plasma 101 97 - 107 mmol/L 11/21/2022 8:49 AM EDT [facility] CO2, Plasma 30(H) 22 - 29 mmol/L 11/21/2022 8:49 AM EDT [facility] Anion Gap 6 6 - 16 mmol/L 11/21/2022 8:49 AM EDT [facility] Total Calcium, Plasma 8.7(L) 8.9 - 10.2 mg/dL 11/21/2022 8:49 AM EDT [facility] Total Protein 5.9(L) 6.3 - 7.9 g/dL 11/21/2022 8:49 AM EDT [facility] Albumin, Plasma 3.8 3.5 - 5.2 g/dL 11/21/2022 8:49 AM EDT [facility] AST, Plasma 18 10 - 35 U/L 11/21/2022 8:49 AM EDT [facility] ALT, Plasma 42(H) 10 - 35 U/L 11/21/2022 8:49 AM EDT [facility] Alkaline Phosphatase, Plasma 91 35 - 104 U/L 11/21/2022 8:49 AM EDT [facility] Total Bilirubin, Plasma 0.2 0.2 - 1.1 mg/dL 11/21/2022 8:49 AM EDT [facility] eGFRcr 116.2 mL/min/1.7 3m*2 11/21/2022 8:49 AM EDT [facility] Comment:Reported eGFRcr in m L/min/1.73m2 is based the CKD-EPI 2020 equation that does not use a race coefficient. Blood Venous blood specimen / Unknown Venipuncture / Unknown 11/21/2022 8:02 AM EDT 11/21/2022 8:19 AM EDT Angie Rosas ENAMEL DIPPER, DNP LAB BLOOD ORDERABLES F inal Result [facility] [address] [place] [address] * (ABNORMAL) CBC and differential (11/21/2022 8:02 AM EDT) WBC Count 4.21 3.70 - 10.30 10*3/uL LAB HEMATOLOGY METHOD 11/21/2022 8:31 AM EDT [facility] RBC Count 4.04 3.90 - 5.20 10*6/uL LAB HEMATOLOGY METHOD 11/21/2022 8:31 AM EDT [facility] HGB 10.7(L) 11.2 - 15.7 g/dL LAB HEMATOLOGY METHOD 11/21/2022 8:31 AM EDT [facility] HCT 33.6(L) 34.0 - 45.0 % LAB HEMATOLOGY METHOD 11/21/2022 8:31 AM EDT [facility] Platelet Count 184 155 - 369 10*3/uL LAB HEMATOLOGY METHOD 11/21/2022 8:31 AM EDT [facility] MCV 83 79 - 98 fL LAB HEMATOLOGY METHOD 11/21/2022 8:31 AM EDT [facility] MCH 26.5 26.0 - 32.0 pg LAB HEMATOLOGY METHOD 11/21/2022 8:31 AM EDT [facility] MCHC 31.8 30.7 - 35.5 g/dL LAB HEMATOLOGY METHOD 11/21/2022 8:31 AM EDT [facility] RDW 15.9(H) 11.5 - 14.5 % LAB HEMATOLOGY METHOD 11/21/2022 8:31 AM EDT [facility] MPV 9.8 8.8 - 12.5 fL LAB HEMATOLOGY METHOD 11/21/2022 8:31 AM EDT [facility] nRBC 0.0 <=0.0 per 100 WBCs LAB HEMATOLOGY METHOD 11/21/2022 8:31 AM EDT [facility] Differential Type Automated LAB HEMATOLOGY METHOD 11/21/2022 8:31 AM EDT [facility] Neutrophils % 49.0 % LAB HEMATOLOGY METHOD 11/21/2022 8:31 AM EDT [facility] Lymphocytes % 42.0 % LAB HEMATOLOGY METHOD 11/21/2022 8:31 AM EDT [facility] Monocytes % 7.0 % LAB HEMATOLOGY METHOD 11/21/2022 8:31 AM EDT [facility] Eosinophils % 1.0 % LAB HEMATOLOGY METHOD 11/21/2022 8:31 AM EDT [facility] Basophils % 1.0 % LAB HEMATOLOGY METHOD 11/21/2022 8:31 AM EDT [facility] Immature Granulocytes % 0.0 % LAB HEMATOLOGY METHOD 11/21/2022 8:31 AM EDT [facility] Neutrophils Absolute 2.05 1.60 - 6.10 10*3/uL LAB HEMATOLOGY METHOD 11/21/2022 8:31 AM EDT [facility] Lymphocytes Absolute 1.78 1.20 - 3.90 10*3/uL LAB HEMATOLOGY METHOD 11/21/2022 8:31 AM EDT [facility] Monocytes Absolute 0.28(L) 0.30 - 0.90 10*3/uL LAB HEMATOLOGY METHOD 11/21/2022 8:31 AM EDT [facility] Eosinophils Absolute 0.06 0.00 - 0.50 10*3/uL LAB HEMATOLOGY METHOD 11/21/2022 8:31 AM EDT [facility] Basophils Absolute 0.03 0.00 - 0.10 10*3/uL LAB HEMATOLOGY METHOD 11/21/2022 8:31 AM EDT [facility] Immature Granulocytes Absolute 0.01 0.00 - 0.06 10*3/uL LAB HEMATOLOGY METHOD 11/21/2022 8:31 AM EDT [facility] Blood Venous blood specimen / Unknown Venipuncture / Unknown 11/21/2022 8:02 AM EDT 11/21/2022 8:19 AM EDT Narrative [facility] - 11/21/2022 8:31 AM EDT Therapeutic decision making should be based on absolute values, rather than percentages. Angie Rosas APRN, DNP LAB BLOOD ORDERABLES F inal Result Performing Organization Address [facility] de Phone Number [facility] [address] [place] [address] * Hemoglobin A1c (11/21/2022 8:02 AM EDT) Hemoglobin A1c 5.2 <5.7 % 11/21/2022 8:56 AM EDT [facility] Blood Venous blood specimen / Unknown Venipuncture / Unknown 11/21/2022 8:02 AM EDT 11/21/2022 8:19 AM EDT Narrative [facility] - 11/21/2022 8:56 AM EDT HA1C Interpretive Data: Diagnosis of Diabetes: Diabetic > or = 6.5% Pre-diabetic 5.7 to 6.4% Non-diabetic < or = 5.6% Glycemic Targets for Type I and Type II Diabetics: Non- Adults <7.0% Adults <6.0% Children and Adolescents <7.5% Source: ??[place] [employer]. Standards of medical care in diabetes,2017. Diabetes Care.2017:40 (suppl 1):S1-S135. HbA1c assay performed by an ion-exchange chromatography method that is certified traceable to the DCCT. Angie Rosas APRN, SAMANTHA LAB BLOOD ORDERABLES F inal Result Performing Organization Address City/[facility] Co de Phone Number [facility] [address] [place] [address] * (ABNORMAL) POCT glucose meter (11/20/2022 8:26 PM EDT) POCT Glucose 111(H) 74 - 99 mg/dL 11/20/2022 8:28 PM EDT [facility] Comment:Accuracy of a glucos e result obtained from a capillary whole blood specimen relies upon adequate, non-compromised capillary blood flow. If the capillary glucose result is not consistent with the patient's clinical signs and symptoms, glucose testing should be repeated with either an arterial or venous sample on the glucometer or sent to the main labortory for testing. Comment 11/20/2022 8:28 PM EDT [facility] [employer] Specialist ID Joyce Demarco 11/20/2022 8:28 PM EDT [facility] Device ID [id number] 11/20/2022 8:28 PM EDT [facility] Specimen Type POC Capillary 11/20/2022 8:28 PM EDT [facility] Blood Capillary blood specimen / Unknown 11/20/2022 8:26 PM EDT 11/20/2022 8:28 PM EDT Ana Cristina Feliz MD LAB POINT OF CARE TE ST DOCKED DEVICE UNSOLICITED RESULTS Final Result [facility] [address] [place] [address] * POCT glucose meter (11/20/2022 5:28 PM EDT) POCT Glucose 90 74 - 99 mg/dL 11/20/2022 5:29 PM EDT [facility] Comment:Accuracy of a glucos e result obtained from a capillary whole blood specimen relies upon adequate, non-compromised capillary blood flow. If the capillary glucose result is not consistent with the patient's clinical signs and symptoms, glucose testing should be repeated with either an arterial or venous sample on the glucometer or sent to the main labortory for testing. Comment 11/20/2022 5:29 PM EDT [facility] [employer] Specialist ID Mary Ley 11/20/2022 5:29 PM EDT [facility] Device ID [id number] 11/20/2022 5:29 PM EDT [facility] Specimen Type POC Capillary 11/20/2022 5:29 PM EDT [facility] Blood Capillary blood specimen / Unknown 11/20/2022 5:28 PM EDT 11/20/2022 5:29 PM EDT us Ana Cristina Feliz MD LAB POINT OF CARE TE ST DOCKED DEVICE UNSOLICITED RESULTS Final Result Performing Organization Address [facility] de Phone Number [facility] [address] [place] [address] * POCT glucose meter (11/20/2022 12:58 PM EDT) POCT Glucose 92 74 - 99 mg/dL 11/20/2022 1:00 PM EDT [facility] Comment:Accuracy of a glucos e result obtained from a capillary whole blood specimen relies upon adequate, non-compromised capillary blood flow. If the capillary glucose result is not consistent with the patient's clinical signs and symptoms, glucose testing should be repeated with either an arterial or venous sample on the glucometer or sent to the main labortory for testing. Comment 11/20/2022 1:00 PM EDT [facility] [employer] Specialist ID Mary Ley 11/20/2022 1:00 PM EDT [facility] Device ID [id number] 11/20/2022 1:00 PM EDT [facility] Specimen Type POC Capillary 11/20/2022 1:00 PM EDT [facility] Blood Capillary blood specimen / Unknown 11/20/2022 12:58 PM EDT 11/20/2022 1:00 PM EDT us Ana Cristina Feliz MD LAB POINT OF CARE TE ST DOCKED DEVICE UNSOLICITED RESULTS Final Result Performing Organization Address City/[facility] Co de Phone Number [facility] [address] [place] [address] * POCT glucose meter (11/20/2022 9:47 AM EDT) POCT Glucose 98 74 - 99 mg/dL 11/20/2022 9:52 AM EDT [facility] Comment:Accuracy of a glucos e result obtained from a capillary whole blood specimen relies upon adequate, non-compromised capillary blood flow. If the capillary glucose result is not consistent with the patient's clinical signs and symptoms, glucose testing should be repeated with either an arterial or venous sample on the glucometer or sent to the main labortory for testing. Comment 11/20/2022 9:52 AM EDT [facility] [employer] Specialist ID Mary Ley 11/20/2022 9:52 AM EDT [facility] Device ID [id number] 11/20/2022 9:52 AM EDT [facility] Specimen Type POC Capillary 11/20/2022 9:52 AM EDT [facility] Blood Capillary blood specimen / Unknown 11/20/2022 9:47 AM EDT 11/20/2022 9:52 AM EDT us Ana Cristina Feliz MD LAB POINT OF CARE TE ST DOCKED DEVICE UNSOLICITED RESULTS Final Result Performing Organization Address [facility] Co de Phone Number [facility] [address] [place] [address] * (ABNORMAL) POCT glucose meter (11/19/2022 9:03 PM EDT) [facility] Signature POCT Glucose 106(H) 74 - 99 mg/dL 11/19/2022 9:04 PM EDT [facility] Comment:Accuracy of a glucos e result obtained from a capillary whole blood specimen relies upon adequate, non-compromised capillary blood flow. If the capillary glucose result is not consistent with the patient's clinical signs and symptoms, glucose testing should be repeated with either an arterial or venous sample on the glucometer or sent to the main labortory for testing. Comment 11/19/2022 9:04 PM EDT [facility] [employer] Specialist ID Ciaar Pedraza 11/19/2022 9:04 PM EDT [facility] Device ID [id number] 11/19/2022 9:04 PM EDT [facility] Specimen Type POC Capillary 11/19/2022 9:04 PM EDT [facility] Blood Capillary blood specimen / Unknown 11/19/2022 9:03 PM EDT 11/19/2022 9:04 PM EDT us Ana Cristina Feliz MD LAB POINT OF CARE TE ST DOCKED DEVICE UNSOLICITED RESULTS Final Result Performing Organization Address City/[facility]/ZIP Co de Phone Number [facility] [address] [place] [address] * POCT glucose meter (11/19/2022 11:19 AM EDT) [facility] POCT Glucose 89 74 - 99 mg/dL 11/19/2022 11:21 AM EDT [facility] Comment:Accuracy of a glucos e result obtained from a capillary whole blood specimen relies upon adequate, non-compromised capillary blood flow. If the capillary glucose result is not consistent with the patient's clinical signs and symptoms, glucose testing should be repeated with either an arterial or venous sample on the glucometer or sent to the main labortory for testing. Comment 11/19/2022 11:21 AM EDT [facility] [employer] Specialist ID Rodolfo Gonzalez 023 11:21 AM EDT [facility] Device ID [id number] 11/19/2022 11:21 AM EDT [facility] Specimen Type POC Capillary 11/19/2022 11:21 AM EDT [facility] Blood Capillary blood specimen / Unknown 11/19/2022 11:19 AM EDT 11/19/2022 11:21 AM EDT us Ana Cristina Feliz MD LAB POINT OF CARE TE ST DOCKED DEVICE UNSOLICITED RESULTS Final Result [facility] [address] [place] [address] * (ABNORMAL) POCT glucose meter (11/18/2022 11:25 PM EDT) [facility] POCT Glucose 106(H) 74 - 99 mg/dL 11/18/2022 11:27 PM EDT [facility] Comment:Accuracy of a glucos e result obtained from a capillary whole blood specimen relies upon adequate, non-compromised capillary blood flow. If the capillary glucose result is not consistent with the patient's clinical signs and symptoms, glucose testing should be repeated with either an arterial or venous sample on the glucometer or sent to the main labortory for testing. Comment 11/18/2022 11:27 PM EDT [facility] [employer] Specialist ID Ni Vazquez 11/18/2022 11:27 PM EDT [facility] Device ID [id number] 11/18/2022 11:27 PM EDT [facility] Specimen Type POC Capillary 11/18/2022 11:27 PM EDT [facility] Blood Capillary blood specimen / Unknown 11/18/2022 11:25 PM EDT 11/18/2022 11:27 PM EDT Ana Cristina Feliz MD LAB POINT OF CARE TE ST DOCKED DEVICE UNSOLICITED RESULTS Final Result Performing Organization Address City/[facility] Co de Phone Number [facility] [address] [place] [address] * Ethyl Alcohol Plasma (11/18/2022 7:09 PM EDT) Ethanol Plasma <10 <10 mg/dL 11/18/2022 7:33 PM EDT [facility] Blood Venous blood specimen / Unknown Venipuncture / Unknown 11/18/2022 7:09 PM EDT 11/18/2022 7:11 PM EDT Narrative [facility] - 11/18/2022 7:33 PM EDT Enzymatic Assay: Performed on [employer]. Angie Rosas ENAMEL DIPPER, DNP LAB BLOOD ORDERABLES F inal Result Performing Organization Address City/[facility] de Phone Number [facility] [address] [place] [address] * CT Abdomen Pelvis w IV Contrast (11/18/2022 6:00 PM EDT) Anatomical Region Laterality Modality Abdomen, Pelvis Computed Tomogra phy Impressions 11/18/2022 6:22 PM EDT No acute process to explain the patient's symptoms. Other findings as above CRITICAL RESULT: ?? No. COMMUNICATION: Per this written report. Drafted by Miguelito Sandoval MD on 11/18/2022 6:20 PM Final report signed by Miguelito Sandoval MD on 11/18/2022 6:22 PM Narrative 11/18/2022 6:22 PM EDT CLINICAL INDICATION: LUQ abdominal pain TECHNIQUE: Multiple axial CT images were obtained from lung bases through pubic symphysis following administration of IV contrast, Optiray 300, 100 mL. Delayed images of abdomen and kidneys also obtained. Reformatted images in the coronal and sagittal planes were generated from the axial data set to facilitate diagnostic accuracy. Total DLP (Dose-Length Product): 1196.90 mGy.cm. Please note: The reported value represents the total of one or more individual components during the CT acquisition on this date and at this time, and as such, the same value may appear in more than one CT report depending on the interpreting/reporting physicians. COMPARISON: 11/11/2022 FINDINGS: Lower Chest: No suspicious findings. Solid Abdominal Organs: Unremarkable liver. Absent gallbladder. No suspicious renal mass lesions. No hydronephrosis. Unremarkable spleen. No suspicious adrenal findings. No suspicious pancreatic findings. GI Tract/Mesentery/Peritoneum: The large and small bowel appear normal in caliber. No evidence of inflammatory change. No suspicious peritoneal/mesenteric findings.. Moderate distention of the stomach with ingested fluid. Pelvic Viscera: No suspicious pelvic mass lesions. Lymph Nodes/Vasculature: No lymphadenopathy by CT size criteria. The aortoiliac vasculature is patent and normal in caliber. Free Fluid:No ascites Musculoskeletal and Body Wall:No aggressive or suspicious findings. Remonstration of soft tissue density in the right breast measuring 2.3 cm. Procedure Note Miguelito Sandoval MD - 11/18/2022 CLINICAL INDICATION: LUQ abdominal pain TECHNIQUE: Multiple axial CT images were obtained from lung bases through pubicsymphysis following administration of IV contrast, Optiray 300, 100 mL.Delayed images of abdomen and kidneys also obtained. Reformatted images inthe coronal and sagittal planes were generated from the axial data set tofacilitate diagnostic accuracy. Total DLP (Dose-Length Product): 1196.90 mGy.cm. Please note: The reportedvalue represents the total of one or more individual components during theCT acquisition on this date and at this time, and as such, the same valuemay appear in more than one CT report depending on theinterpreting/reporting physicians. COMPARISON: 11/11/2022 FINDINGS: Lower Chest: No suspicious findings. Solid Abdominal Organs: Unremarkable liver. Absent gallbladder. Nosuspicious renal mass lesions. No hydronephrosis. Unremarkable spleen. Nosuspicious adrenal findings. No suspicious pancreatic findings. GI Tract/Mesentery/Peritoneum: The large and small bowel appear normal incaliber. No evidence of inflammatory change. No suspiciousperitoneal/mesenteric findings.. Moderate distention of the stomach withingested fluid. Pelvic Viscera: No suspicious pelvic mass lesions. Lymph Nodes/Vasculature: No lymphadenopathy by CT size criteria. Theaortoiliac vasculature is patent and normal in caliber. Free Fluid:No ascites Musculoskeletal and Body Wall:No aggressive or suspicious findings.Remonstration of soft tissue density in the right breast measuring 2.3cm. IMPRESSION: No acute process to explain the patient's symptoms. Other findings as above CRITICAL RESULT: No. COMMUNICATION: Per this written report. Drafted by Miguelito Sandoval MD on 11/18/2022 6:20 PM Final report signed by Miguelito Sandoval MD on 11/18/2022 6:22 PM us Angie Rosas ENAMEL DIPPER, DNP IMG CT PROCEDURES Carolina macias Result * (ABNORMAL) POCT glucose meter (11/18/2022 3:54 PM EDT) POCT Glucose 119(H) 74 - 99 mg/dL 11/18/2022 3:56 PM EDT [facility] Comment:Accuracy of a glucos e result obtained from a capillary whole blood specimen relies upon adequate, non-compromised capillary blood flow. If the capillary glucose result is not consistent with the patient's clinical signs and symptoms, glucose testing should be repeated with either an arterial or venous sample on the glucometer or sent to the main labortory for testing. Comment 11/18/2022 3:56 PM EDT [facility] [employer] Specialist ID Hetal Ashton 11/18/2022 3:56 PM EDT [facility] Device ID [id number] 11/18/2022 3:56 PM EDT [facility] Specimen Type POC Capillary 11/18/2022 3:56 PM EDT [facility] Blood Capillary blood specimen / Unknown 11/18/2022 3:54 PM EDT 11/18/2022 3:55 PM EDT us Ana Cristina Feliz MD LAB POINT OF CARE TE ST DOCKED DEVICE UNSOLICITED RESULTS Final Result [facility] [address] [place] [id number] * ECG Adult (11/18/2022 3:25 PM EDT) EKG DIAGNOSIS CLASS Abnormal MUSE ECG Ventricular Rate 68 BPM MUSE ECG Atrial Rate [address] Interval 130 ms MUSE ECG QRSD Interval 86 ms MUSE ECG QT Interval 420 ms MUSE ECG QTC Interval 446 ms MUSE ECG P [place] 29 degrees MUSE ECG R [place] 30 degrees MUSE ECG T Wave [place] 8 degrees MUSE ECG Diagnosis Normal sinus rhythm MUSE ECG Diagnosis Cannot rule out MUSE ECG Diagnosis Anterior infarct MUSE ECG Diagnosis , age undetermined MUSE ECG Diagnosis Abnormal ECG MUSE ECG Diagnosis Confirmed by Alo Marsh ([id number]) on 11/18/2022 9:29:55 PM MUSE ECG 11/18/2022 3:25 PM EDT 11/18/2022 9:29 PM EDT Angie Rosas ENAMEL DIPPER, DNP ECG ORDERABLES Final Result MUSE ECG * (ABNORMAL) OXYCODONE CONFIRMATION,URINE (11/18/2022 2:16 PM EDT) Oxycodone >1,000(H) <50 ng/mL 11/22/2022 8:22 PM EDT [facility] Oxymorphone <50 <50 ng/mL 11/22/2022 8:22 PM EDT [facility] Oxymorphone Glucuronide >1,000(H) <50 ng/mL 11/22/2022 8:22 PM EDT [facility] Urine Urine specimen obtained by clean catch procedure / Unknown 11/18/2022 2:16 PM EDT 11/18/2022 2:18 PM EDT Narrative [facility] - 11/22/2022 8:22 PM EDT Test performed by LC-MS/MS at the [facility]. This test was developed and its performance characteristics determined by [facility]. It has not been cleared or approved by the FDA. The laboratory is regulated under CLIA as qualified to perform high-complexity testing. This test is used for clinical purposes. us Angie Nathan Rosas ENAMEL DIPPER, DNP LAB URINE ORDERABLES F inal Result [facility] [address] [place] [address] * (ABNORMAL) Opiates Confirm Urine (11/18/2022 2:16 PM EDT) Codeine <50 <50 ng/mL 11/22/2022 8:22 PM EDT [facility] Codeine Glucuronide <50 <50 ng/mL 11/22/2022 8:22 PM EDT [facility] Desmethyl Tramadol <50 <50 ng/mL 2022 8:22 PM EDT [facility] EDDP - Methadone Metabolite <50 <50 ng/mL 11/22/2022 8:22 PM EDT [facility] Hydrocodone <50 <50 ng/mL 11/22/2022 8:22 PM EDT [facility] Hydromorphone <50 <50 ng/mL 11/22/2022 8:22 PM EDT [facility] Hydromorphone Glucuronide <50 <50 ng/mL 11/22/2022 8:22 PM EDT [facility] Comment:Metabolite of Hydrom orphone Meperidine <50 <50 ng/mL 11/22/2022 8:22 PM EDT [facility] Methadone <50 <50 ng/mL 11/22/2022 8:22 PM EDT [facility] 6 Monoacetyl morphine <10 <10 ng/mL 11/22/2022 8:22 PM EDT [facility] Morphine <50 <50 ng/mL 11/22/2022 8:22 PM EDT [facility] Morphine Glucuronide 641(H) <50 ng/mL 11/22/2022 8:22 PM EDT [facility] Comment:Metabolite of [place] ne Naloxone <50 <50 ng/mL 11/22/2022 8:22 PM EDT [facility] Naloxone Glucuronide <50 <50 ng/mL 11/22/2022 8:22 PM EDT [facility] Comment:Metabolite of Naloxo ne Normeperidine <50 <50 ng/mL 11/22/2022 8:22 PM EDT [facility] Tramadol <50 <50 ng/mL 11/22/2022 8:22 PM EDT [facility] Urine Urine specimen obtained by clean catch procedure / Unknown 11/18/2022 2:16 PM EDT 11/18/2022 2:18 PM EDT Narrative [facility] - 11/22/2022 8:22 PM EDT Drug analysis is confirmed by LC-MS/MS (LC Tandem Mass Spectrometry) on Urine specimens. ?? This test was developed and its performance characteristics determined by [facility]. It has not been cleared or approved by the FDA. The laboratory is regulated under CLIA as qualified to perform high-complexity testing. This test is used for clinical purposes. Testing is performed at the [facility]. Angie Rosas APRN, SAMANTHA LAB URINE ORDERABLES F inal Result Performing Organization Address [facility] Co de Phone Number [facility] [address] [place] [address] * (ABNORMAL) THC Urine Confirm LCMSMS (11/18/2022 2:16 PM EDT) 9 Carboxy THC 51(H) <10 ng/mL 11/22/2022 8:22 PM EDT [facility] 9 Carboxy THC Glucuronide >500(H) <25 ng/mL 11/22/2022 8:22 PM EDT [facility] Urine Urine specimen obtained by clean catch procedure / Unknown 11/18/2022 2:16 PM EDT 11/18/2022 2:18 PM EDT Narrative [facility] - 11/22/2022 8:22 PM EDT Drug analysis is confirmed by LC-MS/MS (LC Tandem Mass Spectrometry) on Urine specimens. ?? This test was developed and its performance characteristics determined by [facility]. It has not been cleared or approved by the FDA. The laboratory is regulated under CLIA as qualified to perform high-complexity testing. This test is used for clinical purposes. Testing is performed at the [facility]. Angie Rosas APRN, SAMANTHA LAB URINE ORDERABLES F inal Result Performing Organization Address City/[facility]/ZIP Co de Phone Number [facility] [address] [place] [address] * Drug Abuse Screen, Urine (11/18/2022 2:16 PM EDT) Amphetamine Screen Urine Negative Cutoff: 500 ng/mL 11/18/2022 2:58 PM EDT [facility] Benzodiazepines Screen Urine Negative Cutoff: 200 ng/mL 11/18/2022 2:58 PM EDT [facility] Cannabinoid Screen Urine Presumptive positive. Confirmation by LC-MS/MS to follow. Cutoff: 50 ng/mL 11/18/2022 2:58 PM EDT [facility] Cocaine Screen Urine Negative Cutoff: 300 ng/mL 11/18/2022 2:58 PM EDT [facility] Barbiturate Screen Urine Negative Cutoff: 200 ng/mL 11/18/2022 2:58 PM EDT [facility] Opiate Screen Urine Presumptive positive. Confirmation by LC-MS/MS to follow. Cutoff: 300 ng/mL 11/18/2022 2:58 PM EDT [facility] Methadone Screen Urine Negative Cutoff: 300 ng/mL 11/18/2022 2:58 PM EDT [facility] Buprenorphine Screen Urine Negative Cutoff: 10 ng/mL 11/18/2022 2:58 PM EDT [facility] Fentanyl Screen Urine Negative Cutoff: 1 ng/mL 11/18/2022 2:58 PM EDT [facility] Oxycodone Screen Urine Presumptive positive. Confirmation by LC-MS/MS to follow. Cutoff: 100 ng/mL 11/18/2022 2:58 PM EDT [facility] Urine Urine specimen obtained by clean catch procedure / Unknown 11/18/2022 2:16 PM EDT 11/18/2022 2:18 PM EDT us Angie Rosas ENAMEL DIPPER, DNP LAB URINE ORDERABLES F inal Result [facility] [address] [place] [address] * Urinalysis with reflex microscopic (11/18/2022 11:37 AM EDT) Color, Urine Yellow LAB URINALYSIS - AUTOMATED METHOD 11/18/2022 11:43 AM EDT [facility] Clarity, Urine Clear LAB URINALYSIS - AUTOMATED METHOD 11/18/2022 11:43 AM EDT [facility] Spec [place], Urine 1.009 <=1.005 to >=1.030 LAB URINALYSIS - AUTOMATED METHOD 11/18/2022 11:43 AM EDT [facility] pH, Urine 6.5 4.5 to 8 LAB URINALYSIS - AUTOMATED METHOD 11/18/2022 11:43 AM EDT [facility] Protein, Urine Negative Negative mg/dL LAB URINALYSIS - AUTOMATED METHOD 11/18/2022 11:43 AM EDT [facility] Glucose, Urine Negative Negative mg/dL LAB URINALYSIS - AUTOMATED METHOD 11/18/2022 11:43 AM EDT [facility] Ketones, Urine Negative Negative mg/dL LAB URINALYSIS - AUTOMATED METHOD 11/18/2022 11:43 AM EDT [facility] Blood, Urine Negative Negative LAB URINALYSIS - AUTOMATED METHOD 11/18/2022 11:43 AM EDT [facility] Bilirubin, Urine Negative Negative LAB URINALYSIS - AUTOMATED METHOD 11/18/2022 11:43 AM EDT [facility] Urobilinogen, Urine 0.2 0.2 to 1.0 mg/dL LAB URINALYSIS - AUTOMATED METHOD 11/18/2022 11:43 AM EDT [facility] Leukocytes, Urine Negative Negative LAB URINALYSIS - AUTOMATED METHOD 11/18/2022 11:43 AM EDT [facility] Nitrite, Urine Negative Negative LAB URINALYSIS - AUTOMATED METHOD 11/18/2022 11:43 AM EDT [facility] Urine Urine specimen obtained by clean catch procedure / Unknown Non-blood Collection / Unknown 11/18/2022 11:37 AM EDT 11/18/2022 11:40 AM EDT us George Tang MD LAB URINE ORDERABLES Final Result [facility] [address] [place] [address] * (ABNORMAL) C-reactive protein (11/18/2022 10:54 AM EDT) CRP, Plasma 9.2(H) <=8.0 mg/L 11/18/2022 11:21 PM EDT [facility] Blood Venous blood specimen / Unknown Venipuncture / Unknown 11/18/2022 10:54 AM EDT 11/18/2022 10:57 AM EDT Narrative [facility] - 11/18/2022 11:21 PM EDT This CRP test is appropriate for assessment of infection, systemic inflammation and/or tissue injury. To assess cardiovascular disease risk order high sensitivity CRP (CRPH). us Angie Rosas ENAMEL DIPPER, DNP LAB BLOOD ORDERABLES F inal Result [facility] [address] [place] [address] * (ABNORMAL) Lipid panel (11/18/2022 10:54 AM EDT) Cholesterol, Plasma 199 <200 mg/dL 11/18/2022 11:21 PM EDT [facility] Comment: Cholesterol Reference Range (age >17 years): Desirable? <200 mg/dL Borderline? 200 to 239 mg/dL Undesirable? >239 mg/dL HDL 29(L) >=50 mg/dL 11/18/2022 11:21 PM EDT [facility] Comment: HDL Cholesterol Reference Ranges (age >17 years): Female, acceptable? > or = 50 mg/dL Male, acceptable? > or = 40 mg/dL Triglycerides, Plasma 161(H) <150 mg/dL 11/18/2022 11:21 PM EDT [facility] Comment: Triglyceride Reference Range (age >17 years): Desirable:?? <150 mg/dL Borderline high:?? 150 to 199 mg/dL High:?? 200 to 499 mg/dL Very high:?? >499 mg/dL Increased risk of pancreatitis:?? >1000 mg/dL Cholesterol/HDL Ratio 7 11/18/2022 11:21 PM EDT [facility] LDL, Calculated 141(H) <100 mg/dL 11:21 PM EDT [facility] Comment: LDL Cholesterol Reference Range (age >17 years): Optimal: ??<100 mg/dL Near or above optimal: 100 - 129 mg/dL Borderline high: 130 - 159 mg/dL High: 160 - 189 mg/dL Very high: >189 mg/dL LDL Cholesterol Reference Range (age <18 years): Desirable: ? <110 mg/dL Borderline: ?110 - 129 mg/dL Undesirable: ?? >130 mg/dL LDL Cholesterol is calculated using the Ortiz/NIH equation. Fasting greater than or equal to 12 hours? Unknown 11/18/2022 11:21 PM EDT [facility] Blood Venous blood specimen / Unknown Venipuncture / Unknown 11/18/2022 10:54 AM EDT 11/18/2022 10:57 AM EDT Angie Rosas APRN, SAMANTHA LAB BLOOD ORDERABLES F inal Result Performing Organization Address City/[facility] Co de Phone Number [facility] [address] [place] [address] * hCG qualitative (11/18/2022 10:54 AM EDT) Test Negative Negative 11/18/2022 11:27 AM EDT [facility] Blood Venous blood specimen / Unknown Venipuncture / Unknown 11/18/2022 10:54 AM EDT 11/18/2022 10:57 AM EDT Narrative [facility] - 11/18/2022 11:27 AM EDT Reference Range: Males and non- females: Negative. us George Tang MD LAB BLOOD ORDERABLES Final Result Performing Organization Address City/[facility]/ZIP Co de Phone Number [facility] [address] [place] [address] * PT-INR (11/18/2022 10:54 AM EDT) Prothrombin Time 13.3 12.0 - 14.3 sec 11/18/2022 11:17 AM EDT [facility] INR 1.1 0.9 - 1.1 11/18/2022 11:17 AM EDT [facility] Blood Venous blood specimen / Unknown Venipuncture / Unknown 11/18/2022 10:54 AM EDT 11/18/2022 10:57 AM EDT Narrative [facility] - 11/18/2022 11:17 AM EDT OPTIMAL INR RANGES FOR PATIENT ON ORAL ANTICOAGULANT THERAPY Prevention of venous thromboembolism ?INR 2.0 to 3.0 In patients with heart disease: Atrial fibrillation ?INR 2.0 to 3.0 Valvular heart disease ? INR 2.0 to 3.0 Tissue heart valves ?INR 2.0 to 3.0 Mechanical prosthetic valves ? INR 2.5 to 3.5 Prevention of recurrent NE ? INR 2.5 to 3.5 us George Tang MD LAB BLOOD ORDERABLES Final Result [facility] [address] [place] [address] * (ABNORMAL) CBC w/diff (11/18/2022 10:54 AM EDT) WBC Count 6.10 3.70 - 10.30 10*3/uL LAB HEMATOLOGY METHOD 11/18/2022 11:16 AM EDT [facility] RBC Count 4.11 3.90 - 5.20 10*6/uL LAB HEMATOLOGY METHOD 11/18/2022 11:16 AM EDT [facility] HGB 10.9(L) 11.2 - 15.7 g/dL LAB HEMATOLOGY METHOD 11/18/2022 11:16 AM EDT [facility] HCT 34.2 34.0 - 45.0 % LAB HEMATOLOGY METHOD 11/18/2022 11:16 AM EDT [facility] Platelet Count 210 155 - 369 10*3/uL LAB HEMATOLOGY METHOD 11/18/2022 11:16 AM EDT [facility] MCV 83 79 - 98 fL LAB HEMATOLOGY METHOD 11/18/2022 11:16 AM EDT [facility] MCH 26.5 26.0 - 32.0 pg LAB HEMATOLOGY METHOD 11/18/2022 11:16 AM EDT [facility] MCHC 31.9 30.7 - 35.5 g/dL LAB HEMATOLOGY METHOD 11/18/2022 11:16 AM EDT [facility] RDW 16.3(H) 11.5 - 14.5 % LAB HEMATOLOGY METHOD 11/18/2022 11:16 AM EDT [facility] MPV 9.9 8.8 - 12.5 fL LAB HEMATOLOGY METHOD 11/18/2022 11:16 AM EDT [facility] nRBC 0.0 <=0.0 per 100 WBCs LAB HEMATOLOGY METHOD 11/18/2022 11:16 AM EDT [facility] Differential Type Automated LAB HEMATOLOGY METHOD 11/18/2022 11:16 AM EDT [facility] Neutrophils % 63.0 % LAB HEMATOLOGY METHOD 11/18/2022 11:16 AM EDT [facility] Lymphocytes % 29.0 % LAB HEMATOLOGY METHOD 11/18/2022 11:16 AM EDT [facility] Monocytes % 5.0 % LAB HEMATOLOGY METHOD 11/18/2022 11:16 AM EDT [facility] Eosinophils % 2.0 % LAB HEMATOLOGY METHOD 11/18/2022 11:16 AM EDT [facility] Basophils % 0.0 % LAB HEMATOLOGY METHOD 11/18/2022 11:16 AM EDT [facility] Immature Granulocytes % 1.0 % LAB HEMATOLOGY METHOD 11/18/2022 11:16 AM EDT [facility] Neutrophils Absolute 3.88 1.60 - 6.10 10*3/uL LAB HEMATOLOGY METHOD 11/18/2022 11:16 AM EDT [facility] Lymphocytes Absolute 1.75 1.20 - 3.90 10*3/uL LAB HEMATOLOGY METHOD 11/18/2022 11:16 AM EDT [facility] Monocytes Absolute 0.31 0.30 - 0.90 10*3/uL LAB HEMATOLOGY METHOD 11/18/2022 11:16 AM EDT [facility] Eosinophils Absolute 0.09 0.00 - 0.50 10*3/uL LAB HEMATOLOGY METHOD 11/18/2022 11:16 AM EDT [facility] Basophils Absolute 0.02 0.00 - 0.10 10*3/uL LAB HEMATOLOGY METHOD 11/18/2022 11:16 AM EDT [facility] Immature Granulocytes Absolute 0.05 0.00 - 0.06 10*3/uL LAB HEMATOLOGY METHOD 11/18/2022 11:16 AM EDT [facility] Blood Venous blood specimen / Unknown Venipuncture / Unknown 11/18/2022 10:54 AM EDT 11/18/2022 10:57 AM EDT Narrative [facility] - 11/18/2022 11:16 AM EDT Therapeutic decision making should be based on absolute values, rather than percentages. us George Tang MD LAB BLOOD ORDERABLES Final Result Performing Organization Address City/[facility] Co de Phone Number [facility] [address] [place] [address] * (ABNORMAL) Lipase (11/18/2022 10:54 AM EDT) Lipase, Plasma 139(H) 19 - 63 U/L 11/18/2022 11:27 AM EDT [facility] Blood Venous blood specimen / Unknown Venipuncture / Unknown 11/18/2022 10:54 AM EDT 11/18/2022 10:57 AM EDT George Tang MD LAB BLOOD ORDERABLES Final Result Performing Organization Address [facility] Co de Phone Number [facility] [address] [place] [address] * (ABNORMAL) Magnesium (11/18/2022 10:54 AM EDT) Magnesium, Plasma 1.8(L) 1.9 - 2.4 mg/dL 11/18/2022 11:27 AM EDT [facility] Blood Venous blood specimen / Unknown Venipuncture / Unknown 11/18/2022 10:54 AM EDT 11/18/2022 10:57 AM EDT George Tang MD LAB BLOOD ORDERABLES Final Result Performing Organization Address City/[facility] Co de Phone Number [facility] [address] [place] [address] * (ABNORMAL) CMP (11/18/2022 10:54 AM EDT) Glucose, Plasma 116(H) 74 - 99 mg/dL 11/18/2022 11:27 AM EDT [facility] BUN, Plasma 8 7 - 21 mg/dL 11/18/2022 11:27 AM EDT [facility] Creatinine, Plasma 0.65 0.60 - 1.10 mg/dL 11/18/2022 11:27 AM EDT [facility] BUN/Creatinine Ratio 12 11/18/2022 11:27 AM EDT [facility] Sodium, Plasma 134(L) 136 - 145 mmol/L 11/18/2022 11:27 AM EDT [facility] Potassium, Plasma 3.5(L) 3.7 - 4.8 mmol/L 11/18/2022 11:27 AM EDT [facility] Chloride, Plasma 96(L) 97 - 107 mmol/L 11/18/2022 11:27 AM EDT [facility] CO2, Plasma 26 22 - 29 mmol/L 11/18/2022 11:27 AM EDT [facility] Anion Gap 12 6 - 16 mmol/L 11/18/2022 11:27 AM EDT [facility] Total Calcium, Plasma 9.0 8.9 - 10.2 mg/dL 11/18/2022 11:27 AM EDT [facility] Total Protein 6.5 6.3 - 7.9 g/dL 11/18/2022 11:27 AM EDT [facility] Albumin, Plasma 4.1 3.5 - 5.2 g/dL 11/18/2022 11:27 AM EDT [facility] AST, Plasma 46(H) 10 - 35 U/L 11/18/2022 11:27 AM EDT [facility] ALT, Plasma 71(H) 10 - 35 U/L 11/18/2022 11:27 AM EDT [facility] Alkaline Phosphatase, Plasma 104 35 - 104 U/L 11/18/2022 11:27 AM EDT [facility] Total Bilirubin, Plasma 0.4 0.2 - 1.1 mg/dL 11/18/2022 11:27 AM EDT [facility] eGFRcr 117.9 mL/min/1.7 3m*2 11/18/2022 11:27 AM EDT [facility] Comment:Reported eGFRcr in m L/min/1.73m2 is based the CKD-EPI 2020 equation that does not use a race coefficient. Blood Venous blood specimen / Unknown Venipuncture / Unknown 11/18/2022 10:54 AM EDT 11/18/2022 10:57 AM EDT George Tang MD LAB BLOOD ORDERABLES Final Result [facility] [address] [place] [address] documented in this encounter Visit Diagnoses Diagnosis Acute on chronic pancreatitis (CMS/HCC)- Primary Acute on chronic pancreatitis (CMS/HCC) Uncomplicated opioid dependence (CMS/HCC) Other chronic pain Fibromyalgia Unspecified myalgia and myositis Obesity Obesity, unspecified Anxiety Anxiety state, unspecified Bipolar depression (CMS/HCC) Bipolar I disorder, most recent episode (or current) depressed, unspecified Chronic pain Other chronic pain Fibromyalgia Unspecified myalgia and myositis Hypertension Unspecified essential hypertension GERD (gastroesophageal reflux disease) Esophageal reflux Nicotine dependence Tobacco use disorder Opiate dependence (CMS/HCC) Opioid type dependence, unspecified abuse Marijuana use documented in this encounter Admitting Diagnoses Diagnosis Acute on chronic pancreatitis (CMS/HCC) documented in this encounter Administered Medications Inactive Administered Medications - up to 3 most recent administrations Medication Order MAR Action Action Date Dose Rate Site acetaminophen (Tylenol) tablet 1,000 mg 1,000 mg, Oral, Every 6 hours PRN, Starting on Thu11/18/22 at 1501, Until Thu11/19/22 at 0812, Routine, mild pain Given 11/18/2022 3:17 PM EDT 1,000 mg acetaminophen (Tylenol) tablet 1,000 mg 1,000 mg, Oral, Every 6 hours PRN, Starting on Thu11/19/22 at 0813, Until Thu11/20/22 at 1848, Routine, mild pain Given 11/20/2022 1:02 PM EDT 1,000 mg acetaminophen (Tylenol) tablet 1,000 mg 1,000 mg, Oral, Every 6 hours scheduled, First dose (after last modification) on Thu11/20/22 at 1915, Until Discontinued, Routine Given 11/21/2022 12:14 PM EDT 1,000 mg Given 11/21/2022 3:08 AM EDT 1,000 mg Given 11/20/2022 8:05 PM EDT 1,000 mg celecoxib (CeleBREX) capsule 200 mg 200 mg, Oral, 2 times daily, First dose on Thu11/20/22 at 2100, Until Discontinued, Routine Given 11/21/2022 8:33 AM EDT 200 mg Given 11/20/2022 8:59 PM EDT 200 mg DULoxetine (Cymbalta) DR capsule 30 mg 30 mg, Oral, Daily, First dose on Thu11/19/22 at 1015, Until Discontinued, Routine Given 11/21/2022 8:32 AM EDT 30 mg Given 11/20/2022 8:35 AM EDT 30 mg Given 11/19/2022 10:40 AM EDT 30 mg HYDROmorphone (Dilaudid) injection 0.5 mg 0.5 mg, Intravenous, Every 4 hours PRN, Starting on Thu11/19/22 at 1020, Until Thu11/20/22 at 1848, Routine, severe pain Given 11/20/2022 3:26 PM EDT 0.5 mg Given 11/20/2022 11:15 AM EDT 0.5 mg Given 11/20/2022 7:23 AM EDT 0.5 mg HYDROmorphone (Dilaudid) injection 0.5 mg 0.5 mg, Intravenous, Every 12 hours PRN, 2 doses, Starting on Thu11/20/22 at 0330, Until Thu11/21/22 at 1433, Routine, severe pain Given 11/21/2022 3:08 AM EDT 0.5 mg HYDROmorphone (Dilaudid) injection 1 mg 1 mg, Intravenous, Once, 1 dose, On Thu11/18/22 at 0950, Routine Given 11/18/2022 11:04 AM EDT 1 mg HYDROmorphone (Dilaudid) injection 1 mg 1 mg, Intravenous, Once, 1 dose, On Thu11/18/22 at 1245, Routine Given 11/18/2022 12:48 PM EDT 1 mg HYDROmorphone 1 mg/mL FINANCIAL AID DIRECTOR (naive protocol) Patient FINANCIAL AID DIRECTOR Dose: 0.2 mg, FINANCIAL AID DIRECTOR Lockout: 6 Minutes, Continuous Dose (MG/hr): 0 mg/hr, Nurse Loading Dose: Not Ordered, Intravenous, STAT New Syringe/Cartridge 11/18/2022 5:17 PM EDT HYDROmorphone 1 mg/mL FINANCIAL AID DIRECTOR (naive protocol) Patient FINANCIAL AID DIRECTOR Dose: 0.2 mg, FINANCIAL AID DIRECTOR Lockout: 6 Minutes, Continuous Dose (MG/hr): 0 mg/hr, Nurse Loading Dose: Not Ordered, Intravenous, STAT Restarted 11/19/2022 8:23 AM EDT iohexol (OMNIPaque) 300 MG/ML injection 100 mL 100 mL, Intravenous, Once in imaging, 1 dose, Starting on Thu11/18/22 at 1753, Until Thu11/18/22 at 1754, Routine, Imaging Protocol Orders Given 11/18/2022 5:54 PM EDT 100 mL ketorolac (Toradol) injection 15 mg 15 mg, Intravenous, Every 6 hours PRN, Starting on Thu11/18/22 at 1501, Until Thu11/19/22 at 0812, Routine, moderate pain, severe pain Given 11/18/2022 3:16 PM EDT 15 mg ketorolac (Toradol) injection 15 mg 15 mg, Intravenous, Every 6 hours PRN, Starting on Thu11/19/22 at 0813, Until Annabel 11/20/22 at 1848, Routine, moderate pain, severe pain Given 11/20/2022 1:02 PM EDT 15 mg lactated Ringer's infusion 1,000 mL 1,000 mL, Intravenous, Once, 1 dose, On Thu11/18/22 at 0950, STAT New Bag 11/18/2022 11:01 AM EDT 1,000 mL lactated Ringer's infusion 100 mL/hr, Intravenous, Continuous, Starting on Thu11/18/22 at 1545, Until Thu11/19/22 at 0812, Routine New Bag 11/18/2022 3:53 PM EDT 100 mL/hr 100 mL/hr lactated Ringer's infusion 100 mL/hr, Intravenous, Continuous, Starting on Thu11/19/22 at 0815, Until Annabel 11/20/22 at 0218, Routine New Bag 11/19/2022 10:38 PM EDT 100 mL/hr 100 mL/hr New Bag 11/19/2022 8:19 AM EDT 100 mL/hr 100 mL/hr LORazepam (Ativan) tablet 1 mg 1 mg, Oral, Every 12 hours PRN, Starting on Thu11/20/22 at 1845, Until Thu11/21/22 at 1433, Routine, anxiety Given 11/21/2022 8:32 AM EDT 1 mg Given 11/20/2022 8:03 PM EDT 1 mg LORazepam (Ativan) tablet 2 mg 2 mg, Oral, 2 times daily, First dose on Thu11/19/22 at 0115, Until Discontinued, Routine Given 11/19/2022 1:30 AM EDT 2 mg LORazepam (Ativan) tablet 2 mg 2 mg, Oral, 2 times daily, First dose (after last reorder) on Thu11/19/22 at 0900, Until Discontinued, Routine Given 11/19/2022 8:21 AM EDT 2 mg LORazepam (Ativan) tablet 2 mg 2 mg, Oral, 2 times daily PRN, Starting on Thu11/19/22 at 1010, Until Thu11/20/22 at 1848, Routine, anxiety Given 11/20/2022 8:35 AM EDT 2 mg Given 11/19/2022 9:02 PM EDT 2 mg melatonin tablet 6 mg 6 mg, Oral, Nightly PRN, Starting on Thu11/19/22 at 0813, Until Thu11/21/22 at 1433, Routine, sleep naloxone (Narcan) 2 mg in sodium chloride 0.9 % 100 mL (0.02 mg/mL) infusion (Urinary Retention or Pruritus) 0.25-1 mcg/kg/hr ? 106 kg (1.325-5.3 mL/hr, rounded to 1.33-5.3 mL/hr), Intravenous, Titrated PRN, Starting on Thu11/19/22 at 0813, Until Thu11/21/22 at 1433, Routine, urinary retention, itching naloxone (Narcan) injection 0.08 mg 0.08 mg, Intravenous, As needed, Starting on Thu11/19/22 at 0813, Until Thu11/21/22 at 1433, Routine, respiratory depression, for respiratory rate < 8. nicotine (Nicoderm CQ) 14 MG/24HR patch 1 patch 1 patch, Transdermal, Daily, 42 doses, First dose on Thu11/18/22 at 1505, Last dose on Thu12/29/22 at 0900, Routine Medication Applied 11/18/2022 3:16 PM EDT 1 patch Left Arm nicotine (Nicoderm CQ) 14 MG/24HR patch 1 patch 1 patch, Transdermal, Daily, 42 doses, First dose (after last reorder) on Thu11/19/22 at 0900, Last dose on Thu12/30/22 at 0900, Routine Medication Applied 11/21/2022 8:31 AM EDT 1 patch Other Medication Applied 11/20/2022 8:35 AM EDT 1 patch Left Arm Medication Applied 11/19/2022 8:20 AM EDT 1 patch Left Arm nicotine (Nicoderm CQ) 7 MG/24HR patch 1 patch 1 patch, Transdermal, Daily, 14 doses, First dose (after last reorder) on Thu12/31/22 at 0900, Last dose on Thu01/13/23 at 0900, Routine ondansetron (Zofran) injection 4 mg 4 mg, Intravenous, Once, 1 dose, On Thu11/18/22 at 0950, STAT Given 11/18/2022 11:03 AM EDT 4 mg ondansetron ODT (Zofran-ODT) disintegrating tablet 4 mg 4 mg, Oral, Every 6 hours PRN, Starting on Thu11/18/22 at 1502, Until Thu11/19/22 at 0812, Routine, nausea, vomiting Given 11/18/2022 8:11 PM EDT 4 mg ondansetron ODT (Zofran-ODT) disintegrating tablet 4 mg 4 mg, Oral, Every 6 hours PRN, Starting on Thu11/19/22 at 0813, Until Thu11/21/22 at 1433, Routine, nausea, vomiting Given 11/20/2022 11:15 AM EDT 4 mg Given 11/19/2022 8:53 PM EDT 4 mg Given 11/19/2022 9:33 AM EDT 4 mg oxyCODONE (Roxicodone) immediate release tablet 10 mg 10 mg, Oral, Every 4 hours PRN, Starting on Thu11/18/22 at 1501, Until Thu11/19/22 at 0812, Routine, moderate pain, severe pain Given 11/18/2022 3:16 PM EDT 10 mg oxyCODONE (Roxicodone) immediate release tablet 10 mg 10 mg, Oral, Every 4 hours PRN, Starting on Thu11/19/22 at 0813, Until Thu11/21/22 at 1433, Routine, moderate pain, severe pain Given 11/21/2022 12:14 PM EDT 1 0 mg Given 11/21/2022 8:32 AM EDT 10 mg Given 11/21/2022 4:04 AM EDT 10 mg pancrelipase (Creon) 6000 unit capsule 1 capsule, Oral, 3 times daily with meals, First dose (after last reorder) on Thu11/19/22 at 0830, Until Discontinued, Routine Given 11/21/2022 12:14 PM EDT 1 capsule Given 11/21/2022 8:32 AM EDT 1 capsule Given 11/20/2022 4:55 PM EDT 1 capsule pantoprazole (Protonix) EC tablet 40 mg 40 mg, Oral, 2 times daily before meals, First dose on Thu11/18/22 at 2015, Until Discontinued, Routine Given 11/18/2022 8:46 PM EDT 40 mg pantoprazole (Protonix) EC tablet 40 mg 40 mg, Oral, 2 times daily before meals, First dose (after last reorder) on Thu11/19/22 at 0815, Until Discontinued, Routine Given 11/21/2022 8:32 AM EDT 40 mg Given 11/20/2022 4:55 PM EDT 40 mg Given 11/20/2022 8:35 AM EDT 40 mg pregabalin (Lyrica) capsule 300 mg 300 mg, Oral, 2 times daily, First dose on Thu11/19/22 at 1015, Until Discontinued, Routine Given 11/21/2022 8:32 AM EDT 300 mg Given 11/20/2022 8:03 PM EDT 300 mg Given 11/20/2022 8:34 AM EDT 300 mg prochlorperazine (Compazine) injection 2.5 mg 2.5 mg, Intravenous, Every 6 hours PRN, Starting on Thu11/18/22 at 1502, Until Thu11/19/22 at 0812, Routine, nausea, vomiting Given 11/18/2022 9:03 PM EDT 2 .5 mg Given 11/18/2022 3:16 PM EDT 2.5 mg prochlorperazine (Compazine) injection 2.5 mg 2.5 mg, Intravenous, Every 6 hours PRN, Starting on Thu11/19/22 at 0813, Until Thu11/21/22 at 1433, Routine, nausea, vomiting Given 11/20/2022 6:06 PM EDT 2 .5 mg Given 11/20/2022 5:21 AM EDT 2.5 mg Given 11/19/2022 11:12 AM EDT 2.5 mg promethazine (Phenergan) injection 25 mg 25 mg, Intravenous, Once, 1 dose, On Thu11/18/22 at 1135, STAT Given 11/18/2022 11:43 AM EDT 25 mg senna (Senokot) tablet 17.2 mg 17.2 mg (2 tablet), Oral, Nightly PRN, Starting on Thu11/19/22 at 0813, Until Thu11/21/22 at 1433, Routine, constipation sodium chloride 0.9 % infusion 10 mL/hr, Intravenous, Continuous, Starting on Thu11/18/22 at 1640, Until Thu11/19/22 at 0812, Routine New Bag 11/18/2022 5:28 PM EDT 10 mL/hr 10 mL/ hr sodium chloride 0.9 % infusion 10 mL/hr, Intravenous, Continuous, Starting on Thu11/19/22 at 0815, Until Thu11/19/22 at 2111, Routine New Bag 11/19/2022 8:21 AM EDT 10 mL/hr 10 mL/ hr sucralfate (Carafate) 1 GM/10ML suspension 1 g 1 g, Oral, 4 times daily before meals and nightly, First dose on Thu11/18/22 at 2100, Until Discontinued, Routine Given 11/18/2022 8:46 PM EDT 1 g sucralfate (Carafate) 1 GM/10ML suspension 1 g 1 g, Oral, 4 times daily before meals and nightly, First dose (after last reorder) on Thu11/19/22 at 0815, Until Discontinued, Routine Given 11/21/2022 12:14 PM EDT 1 g Given 11/21/2022 8:32 AM EDT 1 g Given 11/20/2022 8:03 PM EDT 1 g documented in this encounter Active and Recently Administered Medications Times are shown in EDT. Scheduled Medication Order 11/19/2022 11/20/2022 11/21/2022 acetaminophen (Tylenol) tablet 1,000 mg 1,000 mg, Oral, Every 6 hours scheduled, First dose (after last modification) on Thu11/20/22 at 1915, Until Discontinued, Routine 2004 (Given - Provider: Tiffanie Wilkins) 030 (Given - Provider: Reji Garsia)05 (Not Given - Provider: Reji Garsia - Reason: Order parameters not met - Comment: Was just given at 0300)121 (Given - Provider: Meet Clark) celecoxib (CeleBREX) capsule 200 mg 200 mg, Oral, 2 times daily, First dose on Thu11/20/22 at 2100, Until Discontinued, Routine 2058 (Given - Provider: Reji Garsia) 0833 (Given - Provider: Meet Clark) DULoxetine (Cymbalta) DR capsule 30 mg 30 mg, Oral, Daily, First dose on Thu11/19/22 at 1015, Until Discontinued, Routine 1040 (Given - Provider: Sid Garland) 0835 (Given - Provider: Mary Ley) 0832 (Given - Provider: Meet Clark) LORazepam (Ativan) tablet 2 mg (CANCELED) 2 mg, Oral, 2 times daily, First dose on Thu11/19/22 at 0115, Until Discontinued, Routine 0130 (Given - Provider: Chantal Marks) LORazepam (Ativan) tablet 2 mg (CANCELED) 2 mg, Oral, 2 times daily, First dose (after last reorder) on Thu11/19/22 at 0900, Until Discontinued, Routine 0821 (Given - Provider: Sid Garland) nicotine (Nicoderm CQ) 14 MG/24HR patch 1 patch(Linked Group 1) 1 patch, Transdermal, Daily, 42 doses, First dose (after last reorder) on Thu11/19/22 at 0900, Last dose on Thu12/30/22 at 0900, Routine 0820 (Medication Applied - Provider: Sid Garland)0821 (Medication Removed - Provider: Sid Garland) 0835 (Medication Applied - Provider: Mary Ley) 0831 (Medication Applied - Provider: Meet Clark)1233 (Due: Medication Removed - Provider: Automatic Discharge Provider - Comment: Time automatically adjusted from order being discontinued) nicotine (Nicoderm CQ) 7 MG/24HR patch 1 patch(Linked Group 1) 1 patch, Transdermal, Daily, 14 doses, First dose (after last reorder) on Thu12/31/22 at 0900, Last dose on Thu01/13/23 at 0900, Routine pancrelipase (Creon) 6000 unit capsule 1 capsule, Oral, 3 times daily with meals, First dose (after last reorder) on Thu11/19/22 at 0830, Until Discontinued, Routine 0821 (Given - Provider: Sid Garland)1238 (Given - Provider: Sid Garland)1646 (Given - Provider: Sid Garland) 0834 (Given - Provider: Mary Ley)1255 (Given - Provider: Mary Ley)1655 (Given - Provider: Mary Ley) 0832 (Given - Provider: Meet Clark)1214 (Given - Provider: Meet Clark) pantoprazole (Protonix) EC tablet 40 mg 40 mg, Oral, 2 times daily before meals, First dose (after last reorder) on Thu11/19/22 at 0815, Until Discontinued, Routine 0821 (Given - Provider: Sid Garland)1646 (Given - Provider: Sid Garland) 0835 (Given - Provider: Mary Ley)1655 (Given - Provider: Mary Ley) 0832 (Given - Provider: Meet Clark) pregabalin (Lyrica) capsule 300 mg 300 mg, Oral, 2 times daily, First dose on Thu11/19/22 at 1015, Until Discontinued, Routine 1040 (Given - Provider: Sid Garland)2051 (Given - Provider: Joyce Demarco RN) 0834 (Given - Provider: Mary Ley)2002 (Given - Provider: Tiffanie Wilkins) 0832 (Given - Provider: Meet Clark) sucralfate (Carafate) 1 GM/10ML suspension 1 g 1 g, Oral, 4 times daily before meals and nightly, First dose (after last reorder) on Thu11/19/22 at 0815, Until Discontinued, Routine 0821 (Given - Provider: Sid Garland)1238 (Given - Provider: Sid Garland)1646 (Given - Provider: Sid Garland)2051 (Given - Provider: Joyce Demarco, CHANDNI) 0834 (Given - Provider: Mary Ley)111 (Given - Provider: Mary Ley)165 (Given - Provider: Mary Ley)2002 (Given - Provider: Tiffanie Wilkins) 0832 (Given - Provider: Meet Clark)121 (Given - Provider: Meet Clark) Continuous Medication Order 11/19/2022 11/20/2022 11/21/2022 HYDROmorphone 1 mg/mL FINANCIAL AID DIRECTOR (naive protocol) (CANCELED)(Linked Group 2) Patient FINANCIAL AID DIRECTOR Dose: 0.2 mg, FINANCIAL AID DIRECTOR Lockout: 6 Minutes, Continuous Dose (MG/hr): 0 mg/hr, Nurse Loading Dose: Not Ordered, Intravenous, STAT 0823 (Restarted - Provider: Sid Garland)1050 (Stopped - Provider: Sid Garland) lactated Ringer's infusion (CANCELED) 100 mL/hr, Intravenous, Continuous, Starting on Thu11/19/22 at 0815, Until Annabel 11/20/22 at 0218, Routine 0819 (New Bag - Provider: Sid Garland)2237 (New Bag - Provider: Joyce Demarco, CHANDNI) sodium chloride 0.9 % infusion (CANCELED) 10 mL/hr, Intravenous, Continuous, Starting on Thu11/19/22 at 0815, Until Thu11/19/22 at 2111, Routine 0821 (New Bag - Provider: Sid Garland) PRN Medication Order 11/19/2022 11/20/2022 11/21/2022 acetaminophen (Tylenol) tablet 1,000 mg (CANCELED) 1,000 mg, Oral, Every 6 hours PRN, Starting on Thu11/19/22 at 0813, Until Annabel 11/20/22 at 1848, Routine, mild pain 1302 (Given - Provider: Mary Ley) HYDROmorphone (Dilaudid) injection 0.5 mg (CANCELED) 0.5 mg, Intravenous, Every 4 hours PRN, Starting on Thu11/19/22 at 1020, Until Thu11/20/22 at 1848, Routine, severe pain 2237 (Given - Provider: Joyce Demarco RN) 0319 (Given - Provider: Joyce Demarco RN)0723 (Given - Provider: Joyce Demarco RN)1115 (Given - Provider: Mary Ley)1526 (Given - Provider: Mary Ley) HYDROmorphone (Dilaudid) injection 0.5 mg 0.5 mg, Intravenous, Every 12 hours PRN, 2 doses, Starting on Thu11/20/22 at 0330, Until Thu11/21/22 at 1433, Routine, severe pain 0308 (Given - Provider: Reji Garsia) hydrOXYzine pamoate (Vistaril) capsule 25 mg 25 mg, Oral, Every 6 hours PRN, Starting on Thu11/21/22 at 1139, Until Thu11/21/22 at 1433, Routine, anxiety ketorolac (Toradol) injection 15 mg (CANCELED) 15 mg, Intravenous, Every 6 hours PRN, Starting on Thu11/19/22 at 0813, Until Thu11/20/22 at 1848, Routine, moderate pain, severe pain 1302 (Given - Provider: Mary Ley) LORazepam (Ativan) tablet 1 mg 1 mg, Oral, Every 12 hours PRN, Starting on Thu11/20/22 at 1845, Until Thu11/21/22 at 1433, Routine, anxiety 2002 (Given - Provider: Tiffanie Wilkins) 0832 (Given - Provider: Meet Clark) LORazepam (Ativan) tablet 2 mg (CANCELED) 2 mg, Oral, 2 times daily PRN, Starting on Thu11/19/22 at 1010, Until Thu11/20/22 at 1848, Routine, anxiety 2101 (Given - Provider: Joyce Demarco RN) 0835 (Given - Provider: Mary Ley) melatonin tablet 6 mg 6 mg, Oral, Nightly PRN, Starting on Thu11/19/22 at 0813, Until Thu11/21/22 at 1433, Routine, sleep naloxone (Narcan) 2 mg in sodium chloride 0.9 % 100 mL (0.02 mg/mL) infusion (Urinary Retention or Pruritus) 0.25-1 mcg/kg/hr ? 106 kg (1.325-5.3 mL/hr, rounded to 1.33-5.3 mL/hr), Intravenous, Titrated PRN, Starting on Thu11/19/22 at 0813, Until Thu11/21/22 at 1433, Routine, urinary retention, itching naloxone (Narcan) injection 0.08 mg 0.08 mg, Intravenous, As needed, Starting on Thu11/19/22 at 0813, Until Thu11/21/22 at 1433, Routine, respiratory depression, for respiratory rate < 8. ondansetron ODT (Zofran-ODT) disintegrating tablet 4 mg 4 mg, Oral, Every 6 hours PRN, Starting on Thu11/19/22 at 0813, Until Thu11/21/22 at 1433, Routine, nausea, vomiting 0933 (Given - Provider: Sid Garland)205 (Given - Provider: Joyce Demarco RN) 1115 (Given - Provider: Mary Ley) oxyCODONE (Roxicodone) immediate release tablet 10 mg 10 mg, Oral, Every 4 hours PRN, Starting on Thu11/19/22 at 0813, Until Thu11/21/22 at 1433, Routine, moderate pain, severe pain 1040 (Given - Provider: Sid Garland)1445 (Given - Provider: Sid Garland)205 (Given - Provider: Joyce Demarco RN) 0104 (Given - Provider: Joyce Demarco RN)0521 (Given - Provider: Joyce Demarco RN)0944 (Given - Provider: Mary Ley)1358 (Given - Provider: Mary Ley)1806 (Given - Provider: Mary Ley)2152 (Given - Provider: Reji Garsia) 0404 (Given - Provider: Reji Garsia)0832 (Given - Provider: Meet Clark)1214 (Given - Provider: Meet Clark) prochlorperazine (Compazine) injection 2.5 mg 2.5 mg, Intravenous, Every 6 hours PRN, Starting on Thu11/19/22 at 0813, Until Thu11/21/22 at 1433, Routine, nausea, vomiting 1112 (Given - Provider: Sid Garland) 0521 (Given - Provider: Joyce Demarco RN)1806 (Given - Provider: Mary Ley) senna (Senokot) tablet 17.2 mg 17.2 mg (2 tablet), Oral, Nightly PRN, Starting on Thu11/19/22 at 0813, Until Thu11/21/22 at 1433, Routine, constipation Linked Groups Order Group 1: nicotine (Nicoderm CQ) 14 MG/24HR patch 1 patchJump to med 1 patch, Transdermal, Daily, 42 doses, First dose (after last reorder) on Thu11/19/22 at 0900, Last dose on Thu12/30/22 at 0900, Routine Followed by nicotine (Nicoderm CQ) 7 MG/24HR patch 1 patchJump to med 1 patch, Transdermal, Daily, 14 doses, First dose (after last reorder) on Thu12/31/22 at 0900, Last dose on Thu01/13/23 at 0900, Routine Group 2: HYDROmorphone 1 mg/mL FINANCIAL AID DIRECTOR (naive protocol) (CANCELED)Jump to med Patient FINANCIAL AID DIRECTOR Dose: 0.2 mg, FINANCIAL AID DIRECTOR Lockout: 6 Minutes, Continuous Dose (MG/hr): 0 mg/hr, Nurse Loading Dose: Not Ordered, Intravenous, STAT And HYDROmorphone bolus dose 0.2-0.8 mg (CANCELED) 0.2-0.8 mg, Intravenous, Every 15 min PRN, Starting on Thu11/19/22 at 0816, Until Thu11/19/22 at 1022, Routine, severe pain documented in this encounter Additional Health Concerns Infection Onset Date Last Indicated Resolved Time Gastrointestinal Rule-Out Comment:Diarrhea resolved without any episodes during admission 11/18/2022 11/18/2022 11/20/2022 1:26 PM E DT C. difficile Rule-Out Comment:Diarrhea resolved spontaneously w/o any episodes during admission 11/18/2022 11/18/2022 11/20/2022 1:26 PM E DT Assessment Noted Time A fall risk assessment has been complete d for the patient 11/21/2020 2:30 PM EDT documented as of this encounter Care Teams Food Service Team Member Relationship Specialty Start Date End Date Elmo Escobar MD PCP - General 10/18/20 01/05/23 documented as of this encounter
--- OUTSIDE RECORDS SUMMARY | 2024-02-03 15:18 | XMS_ITS | Encounter Summary ---
Author Organization Healthcare Address [address] [place] [address] Care Team Providers Care Denitrator Operator Name Role Phone Elmo Escobar MD Primary Care Provider Encounter Details Date Type Department Care Team (Latest Contact Info) Description 11/05/2022 Travel Social History Tobacco Use Types Packs/Day Years Used Date Smoking Tobacco: Every Day Cigarettes 1 15 Smokeless Tobacco: Never Alcohol Use Standard Drinks/Week Comments Not Currently 0 (1 standard drink = 0.6 oz pur e alcohol) PHQ-2 Answer Date Recorded Patient Health Questionnaire-2 Score 2 11/21/2020 CAGE ASSESSMENT Answer Date Recorded Cage unable to access Not on file 09/26/2022 Cage max number of drinks Not on file 2022 Cage Beverages a week Not on file 09/26/2022 Have you ever felt you should CUT down on your d rinking? 0 09/26/2022 Have you been ANNOYED by people criticizing your drinking? 0 09/26/2022 Have you felt GUILTY about your drinking? 0 09/26/2022 Have you had a drink first t caleb in the morning ([employer]) to steady your nerves or to get rid of a hangover? 0 09/26/2022 CAGE Questionnaire Score 0 023 Comments No [...] documented as of this encounter Care Teams Denitrator Operator Relationship Specialty Start Date End Date Elmo Escobar MD PCP - General 10/18/20 01/05/23 documented as of this encounter
--- OUTSIDE RECORDS SUMMARY | 2024-02-03 15:18 | XMS_ITS | Encounter Summary ---
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 Handler Name Role Phone Elmo Escobar MD Primary Care Provider [phone] Reason for Visit * Reason Comments Abdominal Pain * Auth/Cert (Routine) Specialty Diagnoses / Procedures Referred By Contac t Referred To Contact Diagnoses Chronic pancreatitis, unspecified pancreatitis type (CMS/HCC) Elena Nixon MD [address] [place] [address] Phone: tel: fax: [facility] [address] [place] [address] Phone: tel: Referral ID Status Reason Start Date Expiration Date Visits Re quested Visits Authorized [id number] 1 1 Encounter Details Date Type Department Care Team (Late st Contact Info) Description 11/11/2022 6:53 AM EDT - 11/14/2022 1:49 PM EDT Emergency [facility] [address] [place] [address] Sammy Franco MD [address] [place] [address] Elena Nixon MD [address] [place] [address] Chronic pancreatitis, unspecified pancreatitis type [...] Cage unable to access Not on file 11/11/2022 Cage max number of drinks Not on file 2022 Cage Beverages a week Not on file 11/11/2022 Have you ever felt you should CUT down on your d rinking? 0 11/11/2022 Have you been ANNOYED by people criticizing your drinking? 0 11/11/2022 Have you felt GUILTY about your drinking? 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 0 11/11/2022 CAGE Questionnaire Score 0 023 Comments No Sex and Gender Information Value Date Recorded Sex Assigned at Female 11/30/2020 9:14 AM EDT Legal Sex Female 8:12 PM EDT Gender Identity Female 11/30/2020 9:14 AM EDT Sexual Orientation Straight 11/30/2020 9: 14 AM EDT documented as of this encounter Last Filed Vital Signs Vital Sign Reading Time Taken Comments Blood Pressure 119/85 11/14/2022 7:47 AM EDT Pulse 73 11/14/2022 7:47 AM EDT Temperature 36.6 ??C (97.9 ??F) 11/14/2022 7:47 AM ED T Respiratory Rate 16 11/14/2022 7:47 AM EDT Oxygen Saturation 100% 11/14/2022 7:47 AM EDT Inhaled Oxygen Concentration - - Weight 107 kg (235 lb 0.2 oz) 11/12/2022 10:00 A M EDT Height 165.1 cm (5' 5 ) 11/12/2022 10:00 AM EDT Body Mass Index 39.11 11/12/2022 10:00 AM EDT documented in this encounter Discharge Instructions * Discharge Instructions* Tristin Green MD - 11/14/2022 10:01 AM EDT Outpatient Follow-up Please follow up with your Primary Care Physician next Thursday. We recommend keeping a food diary to track foods which exacerbate your symptoms. If you start having significant nausea/vomiting, we recommend drinking fluids with electrolytes, such as juices, Pedialyte, or Gatorade/powerade to help with hydration and electrolytes. documented in this encounter Medications at Time of Discharge pantoprazole (Protonix) 40 MG EC tablet Take 1 tablet (40 mg) by mouth 1 (one) time each day. Do not crush, chew, or split. famotidine (Pepcid) 20 MG tablet Take 1 tablet (20 mg) by mouth 2 (two) times a day. 60 tablet 11/14/2022 12/15/19 23 acetaminophen (Tylenol) 500 MG tablet Take 2 tablets (1,000 mg) by mouth every 6 (six) hours if needed for pain. 04/11/19 24 amitriptyline (Elavil) 25 MG tablet Take 1 tablet (25 mg) by mouth every night. 30 tablet 11 07/24/2022 11/19/19 23 Ascorbic Acid (vitamin C) 250 MG tablet Take 1 tablet (250 mg) by mouth 1 (one) time each day. 11/19/19 23 cholecalciferol (Vitamin D-3) 50 MCG (2000 UT) capsule Take 1 capsule (2,000 Units) by mouth 1 (one) time each day. 04/11/19 24 cyanocobalamin 1000 MCG tablet Take 1 tablet (1,000 mcg) by mouth 1 (one) time each day. 10/24/19 24 ibuprofen 200 MG tablet Take 3 tablets (600 mg) by mouth every 6 (six) hours if needed for mild pain. 11/19/19 23 lactulose (Chronulac) 10 GM/15ML solution Take 30 mL (20 g) by mouth 1 (one) time each day if needed. 11/19/19 23 LORazepam (Ativan) 2 MG tablet Take 1 tablet (2 mg) by mouth 2 (two) times a day for 5 days. 10 tablet 11/14/2022 11/22/19 23 naloxone (Narcan) 4 mg/0.1 mL nasal spray 1. Give 1 spray in nostril for no/slow breathing or cannot wake after opioid use 2. Call 911 3. Repeat in other nostril if symptoms continue 1 spray 1 each 11/14/2022 02/21/20 23 ondansetron ODT (Zofran-ODT) 4 MG disintegrating tablet Take 1 tablet (4 mg) by mouth every 8 (eight) hours if needed for nausea or vomiting. 02/23/19 24 oxyCODONE (Roxicodone) 10 MG immediate release tablet Take 1 tablet (10 mg) by mouth every 6 (six) hours if needed for moderate pain for up to 3 days. 12 tablet 11/14/2022 11/22/19 23 pancrelipase, Ksh-Yshd-Pkwb, (Creon) 6000-06106 units capsule Take 1 capsule by mouth 3 (three) times a day with meals. 90 capsule 1 11/14/2022 12/29/19 23 permethrin (Elimite) 5 % cream Apply 1 Application topically 1 (one) time. To affected areas 11/22/19 23 pregabalin (Lyrica) 100 MG capsule Take 1 capsule (100 mg) by mouth 3 (three) times a day. 10/28/19 24 prochlorperazine (Compazine) 10 MG tablet Take 1 tablet (10 mg) by mouth every 6 (six) hours if needed for nausea or vomiting. 60 tablet 11/14/2022 11/22/19 23 sucralfate (Carafate) 1 GM/10ML suspension Take 10 mL (1 g) by mouth 4 (four) times a day. 03/25/19 24 documented as of this encounter Miscellaneous Notes * Care Plan - Heilmann, Hosea M, RN - 11/14/2022 10:38 AM EDT Problem: Adult Inpatient Plan of Care Goal: Plan of Care Review Outcome: Met Goal: Patient-Specific Goal (Individualized) Outcome: Met Goal: Absence of Hospital-Acquired Illness or Injury Outcome: Met Goal: Optimal Comfort and Wellbeing Outcome: Met Goal: Readiness for Transition of Care Outcome: Met * Hospital Course - Tristin Green MD - 11/14/2022 10:01 AM EDT Rosibel Gayle is a 36 y.o. female with a PMH of chronic pancreatitis, anxiety, fibromyalgia, duodenal ulcer and cholecystectomy (2011) due to gallstones who presented with chronic pancreatitis. Patient had flare after heavy meal of steak and potatoes. Lipase and CT A/P w/o negative for signs of a cute pancreatitis. Patient was given IV hydration, IV antiemetics, IV pain medications, and diet was advanced as tolerated. Patient eventually was able to be transitioned to PO pain medications, PO antiemetics, and tolerated PO diet and fluids. Patient was agreeable to discharge with quick follow up with PCP, appointment confirmed to be 11/19. #Chronic pancreatitis flare - Acutely increased epigastric and LUQ pain with N/V and diarrhea -History of chronic pancreatitis since 2019 after ERCP and episode of gallstone pancreatitis - S/p cholecystomy in 2011 - Lipase on admission 21, CT abdomen and pelvis w/o contrast did not have findings of acute pancreatitis, fluid collections, pseudocyst, Triglycerides 235 - Continue PO fluids and advance diet to mechanical soft today - 3 days of Oxycodone 10 mg provided at discharge to bridge to PCP appointment - PO Compazine provided at discharge - Creon enzyme replacement, prescribed at discharge - Nutrition consult to educate on diet for chronic pancreatitis - Recommended food diary to track foods which exacerbate symptoms #Chronic Wound on R LE - appears to be slowly healing with granulation tissue present - Wound care following and recommending vaseline bandages - In current state, appears to be healing appropriately #Chronic Anxiety - Has been receiving 3-7 day supplies of ativan from ED visits in past 2 months. Has not been able to follow up with PCP d/t chronic pancreatitis flares making her miss apointments - Patient provided with 5 day supply of ativan 2mg BID to bridge to PCP appointment * Progress Notes - Suzi Shields - 11/14/2022 9:39 AM EDT Case Management Discharge Note Rosibel Gayle 36 y.o. 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: Primary Caregiver: Self Assistance Available at Discharge: Current Outpatient/Agency/Support Group: clinic(s) Availability of Care Givers (#Hours): No assistance needed Housing Circumstances-Z Codes: Housing Circumstances (select all that apply): None Applicable Patient Referred to Financial or Community Resources: Discharge Facility/Level of Care Needs: Discharge Facility/Level of Care Needs: 1-Home or Self Care Patient's Choice of Community Agency(s): Patient/Family Anticipated Services at Transition: Patient/Family Anticipated Services at Transition: outpatient care DME/Equipment Needed after Discharge: Equipment Currently Used at Home: none Equipment Needed After Discharge: none Readmission Within the Last 30 Days: Readmission Within the Last 30 Days: unable to assess Medicare Documentation: N/A Follow-up: No follow-up provider specified. Discharge Transportation: Transportation Anticipated: family or friend will provide Transportation Home at Discharge: Family/Friend will Provide Has discharge transport been arranged?: No Follow Up Transport: Transportation Needed to Follow up Appoinments: Family/Friend will Provide, Self Additional Comments: Suzi Shields * Discharge Summary - Tristin Green MD - 11/14/2022 7:36 AM EDT Hospitalization Admit Date/Time: 11/11/2022 6:53 AM Admitting Attending: Elena Nixon Discharge Date: 11/14/22 Discharge Attending Physician: Elena Nixon MD PCP name and Address: Elmo Escobar MD [address] [facility] / [place] [id number] Referring provider name and address: No referring provider defined for this encounter. Chief Concern, Brief History of Present Illness, and Hospital Course Rosibel Gayle is a 36 y.o. female with a PMH of chronic pancreatitis, anxiety, fibromyalgia, duodenal ulcer and cholecystectomy (2011) due to gallstones who presented with chronic pancreatitis. Patient had flare after heavy meal of steak and potatoes. Lipase and CT A/P w/o negative for signs of a cute pancreatitis. Patient was given IV hydration, IV antiemetics, IV pain medications, and diet was advanced as tolerated. Patient eventually was able to be transitioned to PO pain medications, PO antiemetics, and tolerated PO diet and fluids. Patient was agreeable to discharge with quick follow up with PCP, appointment confirmed to be 11/19. #Chronic pancreatitis flare - Acutely increased epigastric and LUQ pain with N/V and diarrhea -History of chronic pancreatitis since 2019 after ERCP and episode of gallstone pancreatitis - S/p cholecystomy in 2011 - Lipase on admission 21, CT abdomen and pelvis w/o contrast did not have findings of acute pancreatitis, fluid collections, pseudocyst, Triglycerides 235 - Continue PO fluids and advance diet to mechanical soft today - 3 days of Oxycodone 10 mg provided at discharge to bridge to PCP appointment - PO Compazine provided at discharge - Creon enzyme replacement, prescribed at discharge - Nutrition consult to educate on diet for chronic pancreatitis - Recommended food diary to track foods which exacerbate symptoms #Chronic Wound on R LE - appears to be slowly healing with granulation tissue present - Wound care following and recommending vaseline bandages - In current state, appears to be healing appropriately #Chronic Anxiety - Has been receiving 3-7 day supplies of ativan from ED visits in past 2 months. Has not been able to follow up with PCP d/t chronic pancreatitis flares making her miss apointments - Patient provided with 5 day supply of ativan 2mg BID to bridge to PCP appointment Surgeries and Procedures Medication List .. acetaminophen 500 MG tablet Commonly known as: Tylenol Take 2 tablets (1,000 mg) by mouth every 6 (six) hours if needed for pain. amitriptyline 25 MG tablet Commonly known as: Elavil Take 1 tablet (25 mg) by mouth every night. cholecalciferol 50 MCG (2000 UT) capsule Commonly known as: Vitamin D-3 Take 1 capsule (2,000 Units) by mouth 1 (one) time each day. cyanocobalamin 1000 MCG tablet Commonly known as: Vitamin B-12 Take 1 tablet (1,000 mcg) by mouth 1 (one) time each day. famotidine 20 MG tablet Commonly known as: Pepcid Take 1 tablet (20 mg) by mouth 2 (two) times a day. ibuprofen 200 MG tablet Take 3 tablets (600 mg) by mouth every 6 (six) hours if needed for mild pain. lactulose 10 GM/15ML solution Commonly known as: Chronulac Take 30 mL (20 g) by mouth 1 (one) time each day if needed. LORazepam 2 MG tablet Commonly known as: Ativan Take 1 tablet (2 mg) by mouth 2 (two) times a day for 5 days. naloxone 4 mg/0.1 mL nasal spray Commonly [...] moderate pain for up to 3 days. pancrelipase (Wpp-Jncd-Jtal) 6000-13166 units capsule Commonly known as: Creon Take 1 capsule by mouth 3 (three) times a day with meals. pantoprazole 40 MG EC tablet Commonly known as: Protonix Take 1 tablet (40 mg) by mouth 2 (two) times a day. Do not crush, chew, or split. permethrin 5 % cream Commonly known as: Elimite Apply 1 Application topically 1 (one) time. To affected areas pregabalin 300 MG capsule Commonly known as: [...] by mouth 4 (four) times a day. vitamin C 250 MG tablet Take 1 tablet (250 mg) by mouth 1 (one) time each day. Where to Get Your Medications These medications were sent to [facility] [place] [address] famotidine 20 MG tablet LORazepam 2 MG tablet naloxone 4 mg/0.1 mL nasal spray oxyCODONE 10 MG immediate release tablet pancrelipase (Knw-Pvom-Tjqr) 6000-26452 units capsule prochlorperazine 10 MG tablet Discharge Diagnosis Medical Problems Active and Resolved Hospital Problems Hospital * (Principal) Chronic pancreatitis, unspecified pancreatitis type (CMS/HCC) Post Discharge Instructions Outpatient Follow-up Please follow up with your Primary Care Physician next Thursday. We recommend keeping a food diary to track foods which exacerbate your symptoms. If you start having significant nausea/vomiting, we recommend drinking fluids with electrolytes, such as juices, Pedialyte, or Gatorade/powerade to help with hydration and electrolytes. Outpatient Follow-Up No future appointments. Test Results Pending At Discharge Pertinent Physical Exam At Time of Discharge Physical Exam Constitutional: Appearance: Normal appearance. Eyes: General: No scleral icterus. Conjunctiva/sclera: Conjunctivae normal. Cardiovascular: Rate and Rhythm: Normal rate and regular rhythm. Heart sounds: Normal heart sounds. Pulmonary: Effort: Pulmonary effort is normal. No respiratory distress. Breath sounds: Normal breath sounds. Abdominal: General: Abdomen is flat. There is no distension. Tenderness: There is abdominal tenderness. Musculoskeletal: Right lower leg: No edema. Skin: Capillary Refill: Capillary refill takes less than 2 seconds. Neurological: General: No focal deficit present. Mental Status: She is alert and oriented to person, place, and time. Psychiatric: Mood and Affect: Mood normal. Behavior: Behavior normal. Discharge Disposition/Condition Disposition: Home Condition: Stable (s/sx potential problems absent or manageable) I spent >30 minutes of patient care and instruction time in preparation for this discharge. Tristin Green MD Cosigned by Elena Nixon MD at 11/14/2022 1:28 PM EDT Associated attestation - Elena Nixon MD - 11/14/2022 1:28 PM EDT I saw and evaluated the patient with the resident/fellow. I discussed the case with the resident/fellow and agree with the findings and plan as documented. * Consults - Lida Morales RD - 11/13/2022 2:38 PM EDTAssociated Order(s): IP CONSULT TO NUTRITION SERVICES 11/13: Education attempted but pt unavailable - speaking with provider. Pt is well known to nutrition team, seen yesterday for full nutrition assessment. She has previously been educated by this scientific technical writer and has displayed an understanding of a therapeutic diet for chronic pancreatitis in previous visits. RD will plan to f/u per acuity and review pancreatitis nutrition therapy as appropriate and willanswer any questions pt may have at that time. Please feel free to reach out via secure chat as needed. Lida Morales RD, LD * Progress Notes - Tristin Green MD - 11/13/2022 10:35 AM EDT Images from the original note were not included. Hospital Medicine Progress Note Subjective Length of stay: 2 days Brief Patient Summary: Rosibel Gayle is a 36 y.o. female with a PMH of chronic pancreatitis, anxiety, fibromyalgia, duodenal ulcer and cholecystectomy (2011) due to gallstones who presents with severe epigastric and LUQabdominal pain. Subjective Patient was seen this morning and was walking around her room. She reports feeling much better today and describes her abdominal pain as throbbing or aching which is consistent with her home baseline abdominal pain. She is no longer experiencing sharp or stabbing abdominal pain. She had no diarrhea overnight or this morning. She has been doing well with her clear fluid diet and feels ready toadvance to a soft diet for lunch today. She has mild nausea but feels like it is controlled with the compazine. She is also ready to discontinue her IV dilaudid as she feels she no longer needs it. She contacted her PCP and has an appointment for next , 11/20. Review of Systems Review of Systems Constitutional: Negative for chills and fever. Cardiovascular: Negative for chest pain. Gastrointestinal: Positive for abdominal pain and nausea. Negative for blood in stool, diarrhea andvomiting. Genitourinary: Negative for difficulty urinating, dysuria and hematuria. Neurological: Negative for headaches. Objective Objective Last Recorded Vitals Blood pressure 112/71, pulse 91, temperature 36.7 ??C (98.1 ??F), temperature source Oral, resp. rate 18, height 1.651 m (5' 5 ), weight 107 kg (235 lb 0.2 oz), SpO2 93 %, not currently . Physical Exam Constitutional: Appearance: Normal appearance. Eyes: Conjunctiva/sclera: Conjunctivae normal. Cardiovascular: Rate and Rhythm: Normal rate and regular rhythm. Pulmonary: Breath sounds: Normal breath sounds. Abdominal: General: Abdomen is flat. Palpations: Abdomen is soft. Tenderness: There is abdominal tenderness in the epigastric area and left upper quadrant. Musculoskeletal: Right lower leg: No edema. Left lower leg: No edema. Neurological: Mental Status: She is alert. Mental status is at baseline. Lab Results Labs in last 18 hours CBC WBC 4.28 Hb 10.9 (L) Plt 213 Hct 34.1 BMP Na 138 Cl 101 BUN 4 (L) Glu 90 K 3.4 (L) Co2 26 Cr 0.65 Ca 8.2 (L) IMAGING (past 24h): No new imaging. Assessment/Plan Assessment & Plan Rosibel Gayle is a 36 y.o. female with a PMH of chronic pancreatitis, anxiety, fibromyalgia, duodenal ulcer and cholecystectomy (2011) due to gallstones who presents with chronic pancreatitis. #Chronic pancreatitis - Acutely increased epigastric and LUQ pain with N/V and diarrhea. - Pt. Has history of chronic pancreatitis since 2019 with ERCP revealing stone in pancreas. S/p cholecystomy in 2011. - Lipase on admission 21. - LR fluids 1,000 mL, Morphine 6 mg IV, Phenergan 12.5 mg IV (x2) and Dilaudid 0.5 and 1mg given inED - Having typical abdominal pain, lipase likely not good indicator of diagnosis d/t chronic nature of pancreatitis. - CT abdomen and pelvis w/o contrast did not have findings of acute pancreatitis or any additional abnormalities. - Triglycerides 235, urine test - PLAN: - Continue PO fluids and advance diet to mechanical soft today - Goal to decrease Oxycodone 10 mg Q4 PRN to q6 prn - Discontinue Dilaudid 0.5 mg Q6 PRN - Switch to PO Compazine 10 mg Q6 PRN from IV due to increased PO tolerance - Discontinue Phenergan PRN due to patient preferring and tolerating Compazine more - Continue home Creon enzyme replacement - Nutrition consult to educate on diet for chronic pancreatitis #Chronic Wound on R LE - appears to be slowly healing with granulation tissue present - Wound care following and recommending vaseline bandages and possible biopsy - Will defer biopsy to o/p dermatology or PCP #Anxiety - Continue home medications (Lyrica & Ativan) #GERD- Continue home medications (Famotidine & Protonix) #Previous gastric ulcer- Hb >13.8 at admission minor decrease by 1-2 points since admission but likely dilutional, no signs of bleeding. Continue home medications (Carafate) #Tobacco use disorder- NRT per patient request Resolved #Headache - Pt. Reported headache for past week. Resolved today. - Continue Tylenol 1,000 mg Q6 PRN for recurrence #Diarrhea - Pt. Reported diarrhea since 11/11 morning with watery stools. Resolved 11/13. Fluids: PO DVT Ppx: PLOV Diet: [employer] soft diet Code status: Full Code Discharge Planning: Anticipated discharge to: Home Anticipated discharge needs: None Family Contact: Asiya Flores Follow-up: PCP No future appointments. Electronically Signed by: Libia Flanagan - 11/12/2022 - 8:35 AM I saw and evaluated the patient with the medical student. I discussed the case with the medical student and agree with the findings and plan as documented. I personally performed the Exam and MedicalDecision Making. Tristin Green MD Cosigned by Elena Nixon MD at 11/13/2022 1:30 PM EDT Associated attestation - Elena Nixon MD - 11/13/2022 1:30 PM EDT I saw and evaluated the patient with the resident/fellow. I discussed the case with the resident/fellow and agree with the findings and plan as documented. Marked improvement ib patient's abdominal pain. Discontinuing IV pain medications and tapering off PO opioids. Advanced diet today. Likely discharge in next 24-48 hours. * Progress Notes - Dipika Israel - 11/13/2022 10:02 AM EDT Case Management Adult Initial Progress Note Rosibel Gayle 36 y.o. female CSN: [id number] Admission: 11/11/2022 6:53 AM Primary Problem: Chronic pancreatitis, unspecified pancreatitis type (CMS/HCC) Ultrasound Tester reviewed chart and spoke with patient to complete this Initial Case Management Assessment. PCP: Elmo Escobar MD Emergency Contact: Extended Emergency Contact Information Primary Emergency Contact: Asiya Flores Address: [address] [address] [place] Relation: Mother Preferred language: Persian Cuff Slitter needed? No Insurance: Primary Visit Coverage Payer Plan Sponsor Code Group Number Group Name ANTHEM MEDICAID ANTHEM MEDICAID [id number] Primary Visit Coverage Subscriber Subscriber ID Subscriber Name Subscriber SSN Subscriber Address [id number] ROSIBEL GAYLE [id number] [facility] [place] [address] Patient information: Primary Caregiver: Self Support System: Immediate family Daily Living Activities: Functional Status: Independent Living Arrangements: Children, Family, Spouse/Significant other Type of Residence: Multi Level Hayden Trejo [facility] Smoker in the Home?: Yes Current DME: Equipment Currently Used at Home: none Income Information: Income Source: Unemployed Income/Expense Information: Income meets expenses Current Resources Utilized: None Housing Circumstances-Z Codes: Housing Circumstances (select all that apply): None Applicable Patient Referred to: Anticipated Discharge Date: TBD Patient's Discharge Goal: home Assistance Available at Discharge: Discharge Transport: family Follow Up Transport: family Home Health / Home Infusion / Outpatient Dialysis Services: none Living Will/Advance Directive/Power of Counter Installer /Guardian: Unable to assess: No Have you reviewed your Advance Directive and is it valid for this stay?: No Advance Directive: Not applicable Information Provided on Healthcare Directives: No Pre-existing DNR/DNI Order: No Patient Requests Assistance: No Additional Comments: Pt uses [facility] pharmacy in [place]. Per medical team discharge is possible for 11/14. SW will continue to follow up. Dipika Israel Cosigned by Suzi Shields at 11/13/2022 10:57 AM EDT Associated attestation - Suzi Shields - 11/13/2022 10:57 AM EDT Have read and approve the student note. * Procedures - Barb Chavez RN - 11/12/2022 2:09 PM EDTAssociated Order(s): Insert peripheral IV Insert peripheral IV Performed by: Barb Chavez RN Authorized by: Sammy Franco MD Hand hygiene: Hand hygiene performed prior to insertion Inserted using aseptic techniques: Yes Preparation: Skin prepped with chg Orientation: Left Location: Forearm Catheter placed: Peripheral IV Catheter size: 20g/1.88in Line Technique: Ultrasound Guidance Number of attempts: 1 IV flushes: Without difficulty and positive blood return noted and IV luer locked Patient tolerance: Patient tolerated the procedure well and there were no complications IV site covered with: Transparent semipermeable dressing Comments: Image of vein sent to PACS. I was able to draw blood for a green and lavender top tube from newly placed PIV. Tubes labeled at pt's bedside and handed off to [facility] for delivery to lab. * Progress Notes - Abraham Grossman RN - 11/12/2022 1:55 PM EDT Wound Care Consult Visit Date: 11/12/2022 Patient Name: Rosibel Gayle Date of : 1985 Admit Date: 11/11/2022 Reason for Consult: Evaluate and treat wound to right anterior lower leg. Wound Assessment: Wound 09/14/22 Pretibial Right (Active) Date First Assessed/Time First Assessed: 09/14/22 0629 Present on Original Admission: Yes Location:Pretibial Wound Location Orientation: Right Assessments 11/12/2022 1:48 PM Wound Image Wound Assessment Dry;Granulation;Other (Comment) (Serosanguinous crust) Margins Poorly defined Janis-Wound Assessment Other (Comment);Dry (Smooth, hairless, firm, visible vasculature) Shape Irregular Wound Length (cm) 2.3 cm Wound Width (cm) 1.3 cm Wound Surface Area (cm^2) 2.99 cm^2 Drainage Amount None Dressing Status Dressing Changed Non-staged Wound Description Full thickness Active Orders Date Order Priority Status Authorizing Provider 11/12/22 1355 Apply/Change Wound Dressing Routine Active Elena Nixon MD 11/11/22 1428 Wound ostomy eval and treat Routine Active Elena Nixon MD Wound Team Summary Assessment: Per assessment and interview, patient has a healing full-thickness ulceration to the right anteriorlower leg. Ulceration presents with a wound bed of dry granulation tissue and serosanguinous crust.Surrounding skin is smooth and hairless. The skin isn't indurated, but firm to the touch with visible teleangiectasis. No obvious signs of infection present. Patient states she's had the ulceration for 2 months. Wound Team Plan: RIGHT ANTERIOR LOWER LEG: Wash area --> Apply vaseline --> Cover with vaseline gauze --> Wrap with kerlix. Perform daily. - Recommend biopsy of site. Abraham Grossman RN 11/12/2022 1:55 PM * Progress Notes - Dipika Israel - 11/12/2022 9:51 AM EDT Pt was asleep at 9:35 when SW attempted initial. SW will attempt again later. Cosigned by Suzi Shields at 11/12/2022 10:02 AM EDT Associated attestation - Suzi Shields - 11/12/2022 10:02 AM EDT Have read and approve this note. * Consults - Val Stanford RD - 11/12/2022 9:51 AM EDT Adult Nutrition Evaluation Note Rosibel Gayle 36 y.o. female CSN: [id number] Room/Bed 427/427A Nutrition evaluation type: assessment Reason for evaluation: Wound Hospital course: 36 y/o female admitted 11/11 for chronic pancreatitis. Pt presented to ED with c/o abdominal pain, nausea, and vomiting since 0100 on 11/11. Per H&P note (11/11): Pt home diet has consisted of increased chicken and salads while decreasing fatty foods such as burgers and pizza. Pt noted that pizza and spaghetti tend to trigger her abdominal pain and now tries to stay away from tomato sauces with concern for stomach and pancreatic irritation. Past medical/ surgical history: Past Medical History: Diagnosis Date Anxiety Arthritis Depression Fibromyalgia GERD (gastroesophageal reflux disease) Hypertension Nicotine dependence Obesity Pancreatitis Past Surgical History: Procedure Laterality Date CHOLECYSTECTOMY ERCP ESOPHAGOGASTRODUODENOSCOPY HAND SURGERY Social history: Smoker - 1pk/d for 15 years, +marijuana use Additional comments: 11/12: Pt endorsed appetite as improving since being admitted. Pt stated she has been able to tolerate the broth brought on her lunch tray. Pt denied any issues of N/V today, but did have an episode yesterday AM. Pt has had episodes of diarrhea recently. Pt denied any difficulty chewing/swallowing. Pt doesn't have any food allergies. Pt reported UBW ~234# and hasn't had any recent wt loss. Pt takes a B12 and Vitamin D3 supplement at home. Vitals and Basic Assessment: BP: 115/84 Temp: 36.1 ??C (96.9 ??F) Oxygen Therapy: None (Room air) Jo Coma Scale Score: 15 Scott Scale Score: 20 GI Symptoms: None Edema: Generalized Skins: Wound on right pretibial and lower right breast Allergies: NKFA Medications: Scheduled: cyanocobalamin, 1,000 mcg, Oral, Daily enoxaparin, 40 mg, Subcutaneous, Daily famotidine, 20 mg, Oral, BID LORazepam, 2 mg, Oral, BID pancrelipase (Yqy-Kjhw-Movo), 1 capsule, Oral, TID with meals pantoprazole, 40 mg, Oral, BID pregabalin, 300 mg, Oral, BID sucralfate, 1 g, Oral, 4x daily lactated Ringer's, 75 mL/hr, Last Rate: 150 mL/hr (11/11/22 1532) PRN medications: acetaminophen, HYDROmorphone, oxyCODONE, prochlorperazine OR promethazine, [COMPLETED] Insert peripheral IV AND [COMPLETED] Saline lock IV AND sodium chloride AND sodium chloride Meds were reviewed: Yes Labs: Lab Results Component Value Date WBC 6.88 11/11/2022 HGB 13.8 11/11/2022 HCT 42.1 11/11/2022 MCV 81 11/11/2022 PLT 11/11/2022 Comment: Platelet count not valid due to clumping. Appears Normal. Lab Results Component Value Date GLUCOSE 109 (H) 11/11/2022 CALCIUM 9.7 11/11/2022 NA 135 (L) 11/11/2022 K 4.2 11/11/2022 CO2 20 (L) 11/11/2022 CL 97 11/11/2022 BUN 13 11/11/2022 CREATININE 0.60 11/11/2022 PHOS 3.3 10/10/2022 MG 2.1 10/16/2022 HGBA1C 5.3 10/18/2020 Lab Results Component Value Date ALBUMIN 4.6 11/11/2022 Note: Albumin is a negative acute phase protein and not a good indicator of nutrition status. Lab Results Component Value Date CRP 5.7 09/26/2022 Lab Results Component Value Date ALT 56 (H) 11/11/2022 AST 33 11/11/2022 ALKPHOS 105 (H) 11/11/2022 BILITOT 0.4 11/11/2022 Anthropometrics: Height: 165.1 cm (5' 5 ) Weight: 107 kg (235 lb 0.2 oz) BMI (Calculated): 39.11 Weight Evaluation: Obese-Class 1 (BMI 30-34.9) [place] Body Weight (kg): 57 Percent [place] Body Weight: 187 Adjusted Body Weight (kg): 69 Wt Readings from Last 10 Encounters: 11/12/22 107 kg (235 lb 0.2 oz) 11/07/22 108 kg (238 lb 1.6 oz) 11/05/22 108 kg (237 lb 7 oz) 10/26/22 110 kg (241 lb 6.5 oz) 10/20/22 110 kg (243 lb 9.7 oz) 10/18/22 111 kg (244 lb 11.4 oz) 10/16/22 110 kg (243 lb 6.2 oz) 10/15/22 114 kg (252 lb) 09/27/22 114 kg (252 lb) 09/26/22 115 kg (253 lb 8.5 oz) - 7% (17#, 7.7kg) wt loss x 1.5 months (09/26/22 - 11/12/22) - significant if EMR is accurate. -- Pt reported UBW ~234# and hasn't had any recent wt loss. Estimated Needs: Current Nutrition Intake: Diet Supplements: None Diet Order: Adult Diet Diet Texture: Clear liquid Percent Meals Eaten (%): 75% x 2 meals (11/12) Diet Experience and Nutrition History: Diet Education Provided: Will monitor Pertinent home medications: Elavil, Vitamin C, Vitamin D, B12, lactulose, ativan, zofran compazine,phenergan, carafate Jain needs: None documented Nutrition Focused Physical Exam: Physical exam performed on (date): 11/12/22 Temples (muscles): None Clavicle (muscle): None Shoulder (muscle): None Thigh (muscle): None Calf (muscle): None Orbital (fat): None Triceps (fat): None Assessment of Malnutrition: Malnutrition Identified: No Nutrition Problem: Inadequate energy intake related to current clinical status as evidenced by clear liquid diet. Status of Nutrition Diagnosis: New Nutrition Interventions and Recommendations: Continue Clear Liquid diet as tolerated. -- Diet advancement per THERAPEUTIC RADIOLOGIST or MD team. -- Rec Klaus BID (160 kcal, 14g total L-Arginine and 14g L-Glutamine + 5g total Collagen) to promote wound healing. Rec MVI with mineral supplementation daily. Rec obtaining weight 1x/week. Nursing: Please document all PO intakes in I/Os in Flowsheets. Nutrition Monitoring and Goals: - Will monitor PO intake, weight status, lab results, GI tolerance, and skin integrity. - Pt will have an adequate source of nutrition by follow-up. - Pt will tolerate >75% avg of meal intakes. - Pt will maintain weight this admission. Acuity Level: [address] * Progress Notes - Tristin Green MD - 11/12/2022 8:35 AM EDT Images from the original note were not included. Hospital Medicine Progress Note Subjective Length of stay: 1 day Brief Patient Summary: Rosibel Gayle is a 36 y.o. female with a PMH of chronic pancreatitis, anxiety, fibromyalgia, duodenal ulcer and cholecystectomy (2011) due to gallstones who presents with severe epigastric and LUQabdominal pain. Subjective Patient was seen at bedside, awake and interactive. She reports continued abdominal pain primarily in the left upper quadrant and partial epigastric region. She rates it at an 8/10. She has continuednausea, but has not vomited since yesterday prior to admission. She has been able to keep some fluids down and ate jello yesterday. She had 3 episodes of diarrhea and states it is very watery, but denies blood. She denies any recent illnesses or antibiotic use. Her headache has resolved from yesterday. Review of Systems Review of Systems Constitutional: Negative for chills and fever. Cardiovascular: Negative for chest pain. Gastrointestinal: Positive for abdominal pain, diarrhea and nausea. Negative for blood in stool andvomiting. Genitourinary: Negative for difficulty urinating, dysuria and hematuria. Neurological: Negative for headaches. Objective Objective Last Recorded Vitals Blood pressure 115/84, pulse 94, temperature 36.1 ??C (96.9 ??F), temperature source Axillary, resp. rate 18, height 1.651 m (5' 5 ), weight 107 kg (235 lb), SpO2 93 %, not currently . Physical Exam Constitutional: Appearance: Normal appearance. HENT: Head: Normocephalic. Eyes: Conjunctiva/sclera: Conjunctivae normal. Abdominal: General: Abdomen is flat. Bowel sounds are normal. Palpations: Abdomen is soft. Tenderness: There is abdominal tenderness in the epigastric area and left upper quadrant. Musculoskeletal: Right lower leg: No edema. Left lower leg: No edema. Neurological: Mental Status: She is alert. Mental status is at baseline. Lab Results Urine test - Triglycerides 235 IMAGING (past 24h): CT Abdomen Pelvis wo IV Contrast Result Date: 11/11/2022 Impression: No findings to suggest pancreatitis. No acute findings in the abdomen and pelvis. Unchanged medial right breast soft tissue nodule. CRITICAL RESULT: No. COMMUNICATION: Per this written report. Drafted by Beba Bourgeois MD on 11/11/2022 5:04 PM Final report signed by Beba Bourgeois MD on 11/11/2022 5:09 PM Assessment/Plan Assessment & Plan Rosibel Gayle is a 36 y.o. female with a PMH of chronic pancreatitis, anxiety, fibromyalgia, duodenal ulcer and cholecystectomy (2011) due to gallstones who presents with chronic pancreatitis. #LUQ and epigastric abdominal pain likely 2/2 chronic pancreatitis - Acutely increased epigastric and LUQ pain with N/V and diarrhea. - Pt. Has history of chronic pancreatitis since 2019 with ERCP revealing stone in pancreas. S/p cholecystomy in 2011. - Lipase on admission 21. - LR fluids 1,000 mL, Morphine 6 mg IV, Phenergan 12.5 mg IV (x2) and Dilaudid 0.5 and 1mg given inED - Having typical abdominal pain, lipase likely not good indicator of diagnosis d/t chronic nature of pancreatitis. - CT abdomen and pelvis w/o contrast did not have findings of acute pancreatitis or any additional abnormalities. - Triglycerides 235, urine test - PLAN: - Decrease LR fluids to 75 mL/hr today and d/c this evening due to increased tolerance for PO fluids - Continue Oxycodone 10 mg Q4 PRN - Decrease to Dilaudid 0.5 mg Q6 PRN (from 1 mg Q3 PRN) due to reduced pain today and not requiringall available doses - Continue Phenergan 25 mg Q6 PRN or Compazine 10 mg IV for nausea - Continue clear liquid diet as tolerated and advance when able - Continue home Creon enzyme replacement #Diarrhea - Pt. Reports diarrhea since 11/11 morning with watery stools. Denies blood in stool and abdominal pain. - No recent infections, antibiotic use, prolonged hospital stays or voluminous stools making C. Diff low likelihood PLAN: - Continue to monitor for worsening symptoms #Anxiety - Continue home medications (Lyrica & Ativan) #GERD- Continue home medications (Famotidine & Protonix) #Previous gastric ulcer- Hb >13.8 at admission, no signs of bleeding. - Continue home medications (Carafate) #Tobacco use disorder- NRT per patient request Resolved #Headache - Pt. Reported headache for past week. Resolved today. - Continue Tylenol 1,000 mg Q6 PRN for recurrence Fluids: PO and LR 75 mL/hr until 11/12 afternoon DVT Ppx: PLOV Diet: Clear liquid diet Code status: Full Code Discharge Planning: Anticipated discharge to: Home Anticipated discharge needs: None Family Contact: Asiya Flores Follow-up: PCP No future appointments. Electronically Signed by: Libia Flanagan - 11/12/2022 - 8:35 AM I saw and evaluated the patient with the medical student. I discussed the case with the medical student and agree with the findings and plan as documented. I personally performed the Exam and MedicalDecision Making. Tristin Green MD Cosigned by Elena Nixon MD at 11/12/2022 1:20 PM EDT Associated attestation - Elena Nixon MD - 11/12/2022 1:20 PM EDT I saw and evaluated the patient with the resident/fellow. I discussed the case with the resident/fellow and agree with the findings and plan as documented. CT abdomen and pelvis is negative for acute pancreatitis. Going down on pain medications. Advancingdiet as tolerated. * H&P - Tristin Green MD - 11/11/2022 12:31 PM EDT Images from the original note were not included. Hospital Medicine History & Physical Subjective 11/11/2022 Chief Complaint: Abdominal pain History Of Present Illness Rosibel Gayle is a 36 y.o. female with a PMH of chronic pancreatitis, anxiety, fibromyalgia, duodenal ulcer and cholecystectomy (2011) due to gallstones who presents with severe epigastric and LUQabdominal pain. She states the pain began this morning around 1 am, waking her up from sleep. She describes it as sharp and stabbing in quality that is constant and different than her chronic pancreatic pain whichis throbbing. It feels as if someone is stabbing a knife directly through my back. She has feltnauseous and vomited twice as well as had diarrhea today. Her vomit is mostly yellow and bowel movements are watery. She denies blood in her vomit, coffee-ground appearance, blood in her stool and recent tarry stools. Her diet recently has consisted of increased chicken and salads while decreasing fatty foods such as burgers and pizza. She notes that pizza and spaghetti tend to trigger her abd ominal pain and now tries to stay away from tomato sauces with concern for stomach and pancreatic irritation. She has also experienced a headache over the past week and takes Tylenol as needed. She had a cholecystectomy in 2011 due to gallstones. She reports she began having abdominal pain 3 years ago and anERCP found a gallstone stuck in her pancreas. She has had chronic pancreatitis with pain that waxesand wanes since the procedure. She denies significant alcohol use, stating she has approximately 1 drink occasionally at social events, but it is rare as she knows it can worsen her pain. Past Medical History Past Medical History: Diagnosis Date Anxiety Arthritis Depression Fibromyalgia GERD (gastroesophageal reflux disease) Hypertension Nicotine dependence Obesity Pancreatitis Surgical History Past Surgical History: Procedure Laterality Date CHOLECYSTECTOMY ERCP ESOPHAGOGASTRODUODENOSCOPY HAND SURGERY I have reviewed this patient's past surgical history Family History Family History Problem Relation Name Age of Onset Hypertension Mother No Known Problems Father Social History Social History Tobacco Use Smoking status: Every Day Packs/day: 1.00 Years: 15.00 Total pack years: 15.00 Types: Cigarettes Smokeless tobacco: Never Vaping Use Vaping Use: Never used Substance Use Topics Alcohol use: Not Currently Drug use: Yes Types: Marijuana Comment: a few times a month Immunizations Immunization History Administered Date(s) Administered Influenza, injectable, quadrivalent, preservative free 11/21/2019, 12/27/2020, 01/20/2022 Moderna COVID-19 Vaccine ([employer]) 12+ years 06/11/2020, 07/05/2020 Pfizer-BioNTech COVID-19 Vaccine (Purple Cap) 12+ 02/10/2021 Tdap 06/25/2021 Allergies Droperidol and Tramadol Home Medications Current Outpatient Medications Medication Instructions acetaminophen (TYLENOL) 1,000 mg, Oral, Every 6 hours PRN amitriptyline (ELAVIL) 25 mg, Oral, Nightly cholecalciferol (VITAMIN D-3) 2,000 Units, Oral, Daily cyanocobalamin (VITAMIN B-12) 1,000 mcg, Oral, Daily famotidine (PEPCID) 20 mg, Oral, 2 times daily ibuprofen 600 mg, Oral, Every 6 hours PRN naloxone (NARCAN) 4 mg, Nasal, As needed, Call 911. Give 4 mg (1 spray) into one nostril. Repeat every 2-3 minutes as needed, alternating nostrils, until medical assistance arrives. ondansetron ODT (ZOFRAN-ODT) 4 mg, Oral, Every 8 hours PRN pantoprazole (PROTONIX) 40 mg, Oral, 2 times daily, Do not crush, chew, or split. pregabalin (LYRICA) 300 mg, Oral, 2 times daily prochlorperazine (COMPAZINE) 10 mg, Oral, Every 6 hours PRN promethazine (PHENERGAN) 25 mg, Oral, Every 6 hours PRN promethazine (PHENERGAN) 25 mg, Oral, Every 6 hours PRN vitamin C 250 mg, Oral, Daily Review of Systems Review of Systems Constitutional: Negative for fever. Gastrointestinal: Positive for abdominal pain, diarrhea, nausea and vomiting. Negative for blood instool. Genitourinary: Negative for dysuria and hematuria. Skin: Positive for wound. RLE Neurological: Positive for headaches. Psychiatric/Behavioral: The patient is nervous/anxious. Objective Last Recorded Vitals Blood pressure 137/85, pulse 85, temperature 36.7 ??C (98 ??F), temperature source Oral, resp. rate18, height 1.651 m (5' 5 ), weight 107 kg (235 lb), SpO2 98 %, not currently . Physical Exam Constitutional: Appearance: She is ill-appearing. Eyes: Conjunctiva/sclera: Conjunctivae normal. Cardiovascular: Rate and [...] of motion. Skin: General: Skin is warm. Findings: Wound present. Comments: RLE. Erythematous, no drainage. Appears to be healing. Neurological: Mental Status: She is alert. Mental status is at baseline. Psychiatric: Mood and Affect: Mood is anxious. Data Labs in last 18 hours CBC WBC 6.88 Hb 13.8 Plt ?? Hct 42.1 ANC 4.38 INR ??, PTT ??, Anti-Xa ?? BMP Na 135 (L) Cl 97 BUN 13 Glu 109 (H) K 4.2 Co2 20 (L) Cr 0.60 Ca 9.7 iCa ?? Mg ??, Phos ?? Lactate ?? LFT AST 33 AlkPhos 105 (H) T Prot 8.0 (H) ALK 56 (H) Bili 0.4 Alb ?? D.Bili ?? IMAGING (past 24h): Assessment/Plan Assessment/ Plan Principal Problem: Chronic pancreatitis, unspecified pancreatitis type (CMS/HCC) Rosibel Gayle is a 36 y.o. female with a PMH of chronic pancreatitis, anxiety, fibromyalgia, duodenal ulcer and cholecystectomy (2011) due to gallstones who presents with severe epigastric and LUQabdominal pain. #LUQ and epigastric abdominal pain likely 2/2 chronic pancreatitis - Acutely increased epigastric and LUQ pain with N/V and diarrhea. - Pt. Has history of chronic pancreatitis since 2019 with ERCP revealing stone in pancreas. S/p cholecystomy in 2011. - Lipase on admission 21 - LR fluids 1,000 mL, Morphine 6 mg IV, Phenergan 12.5 mg IV (x2) and Dilaudid 0.5 and 1mg given inED - Having typical abdominal pain, lipase likely not good indicator of diagnosis d/t chronic nature of pancreatitis. No imaging in ED to use for diagnostic criteria PLAN: - Ordered triglycerides, urine test, and CT abdomen and pelvis w/ contrast - Initiated LR fluids 500 mL bolus followed by 150 mL/hr for moderate-intensity fluid resucitation d/t initial tachycardia suggesting hypovolemia - Initiated Oxycodone 10 mg Q4 PRN and Dilaudid 1 mg Q2 PRN. - Continue Phenergan 25 mg Q6 PRN or Compazine 10 mg IV for nausea - Initiated clear liquid diet as tolerated - Continue home Creon enzyme replacement #Headache - Pt. Reports headache for past week PLAN - Initiated Tylenol 1,000 mg Q6 PRN #Anxiety - Continue home medications (Lyrica & Ativan) #GERD- Continue home medications (Famotidine & Protonix) #Previous gastric ulcer- Hb >13.8, no signs of bleeding. Continue home medications (Carafate) #Tobacco use disorder- NRT per patient request Fluids: LR 150 mL/hr for 24 hours DVT Ppx: PLOV Diet: Clear liquid diet Code status: Full Code Dispo: Admit to Floor Electronically Signed by: Libia Flanagan - 11/11/2022 - 12:31 PM I saw and evaluated the patient with the medical student. I discussed the case with the medical student and agree with the findings and plan as documented. I personally performed the Exam and MedicalDecision Making. Tristin Green MD Cosigned by Elena Nixon MD at 11/11/2022 2:50 PM EDT Associated attestation - Elena Nixon MD - 11/11/2022 2:50 PM EDT I saw and evaluated the patient with the resident/fellow. I discussed the case with the resident/fellow and agree with the findings and plan as documented. ?Acute on chronic pancreatitis Patient with history of chronic pancreatitis presented with acute stabbing epigastric pain with accompanied nausea and vomiting since last night. CT abdomen and pelvis ordered as lipase is normal. Started on IV hydration. Pain control with IV dilaudid and PO oxycodone. Anti-emetics. Will involve GI depending on CT results. * ED Provider Notes - Sammy Franco MD - 11/11/2022 6:40 AM EDT - HPI Chief Complaint Patient presents with Abdominal Pain Rosibel Gayle is a 36 y.o. female with a past medical history of chronic pancreatitis, HTN, GERD, and fibromyalgia and a surgical history of cholecystectomy (2011) who presents today via private vehicle with abdominal pain. The patient c/o constant stabbing left upper quadrant abdominal pain asso ciated with nausea, 2 episodes of emesis, and diarrhea onset 0130 this morning. She documents her symptoms woke her up. Family notes the patient had steak and vegetables last night for dinner. The patient documents multiple admissions to the hospital for pancreatitis flare ups in the past. She notes normally her pain is throbbing in nature, but it is stabbing this time. The patient reports her pain has not been this intense in a long time. She documents a gallstone was the cause of her pancreatitis. She reports an onset of pancreatitis after an ERCP to remove a gallstone. The patient notes she has had an ulcer on her duodenum and a cyst on her ovaries in the past. The patient denies chest pain, cough, fever, and chills. 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 by: Patient and parent filament shaper used: No No data recorded Patient History Past Medical History: Diagnosis Date Anxiety Arthritis Depression Fibromyalgia GERD (gastroesophageal reflux disease) Hypertension Nicotine dependence Obesity Pancreatitis Past Surgical History: [...] Negative for cough. Cardiovascular: Negative for chest pain. Gastrointestinal: Positive for abdominal pain, diarrhea, nausea and vomiting. All other systems reviewed and are negative. Physical Exam ED Triage Vitals Temp Heart Rate Resp BP 11/11/22 0650 11/11/22 0650 11/11/22 0650 11/11/22 0652 36.4 ??C (97.6 ??F) 111 18 (!) 142/102 SpO2 Temp Source Heart Rate Source Patient Position 11/11/22 0650 11/11/22 0650 -- -- 99 % Oral BP Location FiO2 (%) -- -- Physical Exam Vitals and nursing note reviewed. Constitutional: General: She is in acute distress (due to pain). Appearance: Normal appearance. She is well-developed. She is obese. She is not ill-appearing, toxic-appearing or diaphoretic. HENT: Head: Normocephalic and atraumatic. Nose: Nose normal. Mouth/Throat: Mouth: Mucous membranes are moist. Eyes: Conjunctiva/sclera: Conjunctivae normal. Cardiovascular: Rate and Rhythm: Normal rate and regular rhythm. Pulmonary: Effort: Pulmonary effort is normal. No respiratory distress. Breath sounds: Normal breath sounds. No stridor. Abdominal: General: There is no distension. Palpations: Abdomen is soft. Tenderness: There is abdominal tenderness in the epigastric area and left upper quadrant. There is no guarding or rebound. Musculoskeletal: General: No swelling or deformity. Normal range of motion. Cervical back: Neck supple. Skin: General: Skin is warm and dry. Neurological: General: No focal deficit present. Mental Status: She is alert and oriented to person, place, and time. Mental status is at baseline. Psychiatric: Mood and Affect: Mood normal. Affect is tearful. Behavior: Behavior normal. ED Course & MDM ED Course as of 11/11/22 1002 Tue Nov 11, 2022 0850 WBC: 6.88 nl [BB] 0850 Hemoglobin: 13.8 nl [BB] 0918 Lipase: 21 nl [BB] ED Course User Index [BB] Sammy Franco MD Clinical Impressions as of 11/11/22 1002 Chronic pancreatitis, unspecified pancreatitis type (CMS/HCC) - Medical Decision Making Rosibel Gayle is a 36 yrs old female presents today for Patient presents with: Abdominal Pain . Based on her history and physical exam, my differential diagnosis included AAA, appendicitis, ectopic, torsion, PID, diverticulitis, pancreatitis, gastritis, IBD, cholecystitis, SBO/LBO, mesenteric ischemia, intra-abdominal abscess, and perforated bowel. All of these have been considered. . Ruling out the most morbid conditions drove my clinical assessment. In order to fully explore differential these tests and treatments were ordered. Orders Placed This Encounter Comprehensive Metabolic Panel, Plasma CBC and Differential Lipase, Plasma Insert peripheral IV Medications lactated Ringer's infusion 1,000 mL (has no administration in time range) morphine PF 6 mg (has no administration in time range) promethazine (Phenergan) injection 12.5 mg (has no administration in time range) Old records for this patient were reviewed and found to be pertinent. Records review indicates thatpt has many previous ED visits for same complaint, and has had recent Cts including twice in Septemberand a RUQ US on 10/26, all of which were unremarkable. It should be noted that her chronic conditions includes chronic pancreatitis, which currently is not at goal therapy. This complicates her clinical picture because it may be exacerbating symptoms andincreases the amount and complexity of data to be reviewed. Additional history was provided by family - mother at bedside. I considered the utility of obtaining CT Scan, but decided to forgo this after shared decision making with the patient/family because the risks outweigh the benefits and abd exam is benign, pt has had several Cts scans this year including two in the last 5 weeks, and labs do not reveal acute findings. So it is felt that the pt would not benefit from emergent imaging at this time. Lab results were reviewed independently and can be interpreted as non actionable I considered (and discussed through shared decision making) the utility of treatment with a prescription for blood pressure medication. However, because they are better managed by the primary physician we decided not to start treatment. Patient reevaluated after treatments provided and condition improved with medications given, however pt does not feel that her pain is yet well controlled enough to safely go home. Therefore she requests admission to the hospital. Due to the severity of her illness, I considered (and discussed through shared decision making) admitting the patient for parenteral medications and pain control. Pt and mother agree. I had an interactive discussion with IM consult service who advises will admit Based on work up today patient did require consult with Internal Medicine Ultimately, this patient was Was admitted (Admission) The encounter diagnosis was Chronic pancreatitis, unspecified pancreatitis type (CMS/HCC).. Patient believed to require admission for the listed diagnoses. The Internal Medicine service was consulted for admission and was agreeable to admit to Acute Floor (Med/Surg). There are no outpatient Patient Instructions on file for this admission. ED Prescriptions None Sign Off Checklist Clinical Impression: Complete ED Disposition: Complete - Sammy Franco MD 11/11/22 1012 * ED Triage Notes - Tereza Wilkes RN - 11/11/2022 6:40 AM EDT Pt states she has had intense abdominal pain, nausea, and vomiting since 0100 this morning. Pt states she has a hx of chronic pancreatitis documented in this encounter Plan of Treatment Not on file documented as of this encounter Procedures Procedure Name Priority Date/Time Associated Diagnosis Comments CBC W/O DIFFERENTIAL Routine 11/14/2022 3:13 AM EDT BASIC METABOLIC PANEL, PLASMA Routine 11/14/2022 3:13 AM EDT CBC W/O DIFFERENTIAL Routine 11/13/2022 4:38 AM EDT BASIC METABOLIC PANEL, PLASMA Routine 11/13/2022 4:38 AM EDT INSERT PERIPHERAL IV STAT 11/12/2022 2:09 PM EDT CBC W/O DIFFERENTIAL Routine 11/12/2022 2:07 PM EDT MAGNESIUM, PLASMA Routine 11/12/2022 2:0 7 PM EDT COMPREHENSIVE METABOLIC PANEL, PLASMA Routine 11/12/2022 2:[address] ABDOMEN PELVIS WO IV CONTRAST STAT 11/11/2022 4:54 PM EDT , URINE Routine 11/11/2022 3:35 PM EDT WOUND OSTOMY EVAL AND TREAT Routine 11/11/2022 2:28 PM EDT MORPHOLOGY STAT 11/11/2022 8:17 AM EDT CBC WITH AUTO DIFFERENTIAL STAT 11/11/2022 8:17 AM EDT TRIGLYCERIDES, PLASMA Add-On 11/11/2022 8:17 AM EDT LIPASE, PLASMA STAT 11/11/2022 8:17 AM EDT COMPREHENSIVE METABOLIC PANEL, PLASMA STAT 11/11/2022 8:17 AM EDT documented in this encounter Results * (ABNORMAL) CBC W/O Differential (11/14/2022 3:13 AM EDT) WBC Count 5.85 3.70 - 10.30 10*3/uL LAB HEMATOLOGY METHOD 11/14/2022 3:37 AM EDT [facility] RBC Count 4.44 3.90 - 5.20 10*6/uL LAB HEMATOLOGY METHOD 11/14/2022 3:37 AM EDT [facility] HGB 11.8 11.2 - 15.7 g/dL LAB HEMATOLOGY METHOD 11/14/2022 3:37 AM EDT [facility] HCT 36.7 34.0 - 45.0 % LAB HEMATOLOGY METHOD 11/14/2022 3:37 AM EDT [facility] Platelet Count 221 155 - 369 10*3/uL LAB HEMATOLOGY METHOD 11/14/2022 3:37 AM EDT [facility] MCV 83 79 - 98 fL LAB HEMATOLOGY METHOD 11/14/2022 3:37 AM EDT [facility] MCH 26.6 26.0 - 32.0 pg LAB HEMATOLOGY METHOD 11/14/2022 3:37 AM EDT [facility] MCHC 32.2 30.7 - 35.5 g/dL LAB HEMATOLOGY METHOD 11/14/2022 3:37 AM EDT [facility] RDW 15.4(H) 11.5 - 14.5 % LAB HEMATOLOGY METHOD 11/14/2022 3:37 AM EDT [facility] MPV 9.7 8.8 - 12.5 fL LAB HEMATOLOGY METHOD 11/14/2022 3:37 AM EDT [facility] nRBC 0.0 <=0.0 per 100 WBCs LAB HEMATOLOGY METHOD 11/14/2022 3:37 AM EDT [facility] Blood Venous blood specimen / Unknown Venipuncture / Unknown 11/14/2022 3:13 AM EDT 11/14/2022 3:32 AM EDT us Elena Nixon MD LAB BLOOD ORDERABLES Final R esult [facility] [address] [place] [address] * (ABNORMAL) Basic metabolic panel (11/14/2022 3:13 AM EDT) [facility] Glucose, Plasma 93 74 - 99 mg/dL 11/14/2022 4:09 AM EDT [facility] BUN, Plasma <3(L) 7 - 21 mg/dL 11/14/2022 4:09 AM EDT [facility] Creatinine, Plasma 0.67 0.60 - 1.10 mg/dL 11/14/2022 4:09 AM EDT [facility] BUN/Creatinine Ratio 11/14/2022 4:09 AM EDT [facility] Comment:Unable to calculate, at least one value is above or below the detection limit. Sodium, Plasma 136 136 - 145 mmol/L 11/14/2022 4:09 AM EDT [facility] Potassium, Plasma 4.1 3.7 - 4.8 mmol/L 11/14/2022 4:09 AM EDT [facility] Chloride, Plasma 100 97 - 107 mmol/L 11/14/2022 4:09 AM EDT [facility] CO2, Plasma 26 22 - 29 mmol/L 11/14/2022 4:09 AM EDT [facility] Anion Gap 10 6 - 16 mmol/L 11/14/2022 4:09 AM EDT [facility] Total Calcium, Plasma 9.1 8.9 - 10.2 mg/dL 11/14/2022 4:09 AM EDT [facility] eGFRcr 117.1 mL/min/1.7 3m*2 11/14/2022 4:09 AM EDT [facility] Comment:Reported eGFRcr in m L/min/1.73m2 is based the CKD-EPI 2020 equation that does not use a race coefficient. Blood Venous blood specimen / Unknown Venipuncture / Unknown 11/14/2022 3:13 AM EDT 11/14/2022 3:32 AM EDT Elena Nixon MD LAB BLOOD ORDERABLES Final R esult [facility] [address] [place] [address] * (ABNORMAL) CBC W/O Differential (11/13/2022 4:38 AM EDT) WBC Count 4.28 3.70 - 10.30 10*3/uL LAB HEMATOLOGY METHOD 11/13/2022 5:06 AM EDT [facility] RBC Count 4.13 3.90 - 5.20 10*6/uL LAB HEMATOLOGY METHOD 11/13/2022 5:06 AM EDT [facility] HGB 10.9(L) 11.2 - 15.7 g/dL LAB HEMATOLOGY METHOD 11/13/2022 5:06 AM EDT [facility] HCT 34.1 34.0 - 45.0 % LAB HEMATOLOGY METHOD 11/13/2022 5:06 AM EDT [facility] Platelet Count 213 155 - 369 10*3/uL LAB HEMATOLOGY METHOD 11/13/2022 5:06 AM EDT [facility] MCV 83 79 - 98 fL LAB HEMATOLOGY METHOD 11/13/2022 5:06 AM EDT [facility] MCH 26.4 26.0 - 32.0 pg LAB HEMATOLOGY METHOD 11/13/2022 5:06 AM EDT [facility] MCHC 32.0 30.7 - 35.5 g/dL LAB HEMATOLOGY METHOD 11/13/2022 5:06 AM EDT [facility] RDW 15.9(H) 11.5 - 14.5 % LAB HEMATOLOGY METHOD 11/13/2022 5:06 AM EDT [facility] MPV 9.6 8.8 - 12.5 fL LAB HEMATOLOGY METHOD 11/13/2022 5:06 AM EDT [facility] nRBC 0.0 <=0.0 per 100 WBCs LAB HEMATOLOGY METHOD 11/13/2022 5:06 AM EDT [facility] Blood Venous blood specimen / Unknown Venipuncture / Unknown 11/13/2022 4:38 AM EDT 11/13/2022 5:03 AM EDT Elena Nixon MD LAB BLOOD ORDERABLES Final R esult [facility] [address] [place] [id number] * (ABNORMAL) Basic metabolic panel (11/13/2022 4:38 AM EDT) [facility] Glucose, Plasma 90 74 - 99 mg/dL 11/13/2022 5:25 AM EDT [facility] BUN, Plasma 4(L) 7 - 21 mg/dL 11/13/2022 5:25 AM EDT [facility] Creatinine, Plasma 0.65 0.60 - 1.10 mg/dL 11/13/2022 5:25 AM EDT [facility] BUN/Creatinine Ratio 6 11/13/2022 5:25 AM EDT [facility] Sodium, Plasma 138 136 - 145 mmol/L 11/13/2022 5:25 AM EDT [facility] Potassium, Plasma 3.4(L) 3.7 - 4.8 mmol/L 11/13/2022 5:25 AM EDT [facility] Chloride, Plasma 101 97 - 107 mmol/L 11/13/2022 5:25 AM EDT [facility] CO2, Plasma 26 22 - 29 mmol/L 11/13/2022 5:25 AM EDT [facility] Anion Gap 11 6 - 16 mmol/L 11/13/2022 5:25 AM EDT [facility] Total Calcium, Plasma 8.2(L) 8.9 - 10.2 mg/dL 11/13/2022 5:25 AM EDT [facility] eGFRcr 117.9 mL/min/1.7 3m*2 11/13/2022 5:25 AM EDT [facility] Comment:Reported eGFRcr in m L/min/1.73m2 is based the CKD-EPI 2020 equation that does not use a race coefficient. Blood Venous blood specimen / Unknown Venipuncture / Unknown 11/13/2022 4:38 AM EDT 11/13/2022 5:03 AM EDT Elena Nixon MD LAB BLOOD ORDERABLES Final R esult Performing Organization Address City/State/[facility] Co de Phone Number [facility] [address] [place] [address] * PERIPHERAL IV (SMARTFORM LINK) (11/12/2022 2:09 PM EDT) Narrative Barb Chavez RN - 11/12/2022 2:09 PM EDT Barb Chavez RN ? 11/12/2022 ??2:10 PM Insert peripheral IV Performed by: Barb Chavez RN Authorized by: Sammy Franco MD ?? Hand hygiene: Hand hygiene performed prior to insertion ?? Inserted using aseptic techniques: Yes ?? Preparation: ??Skin prepped with chg Orientation: ??Left Location: ??Forearm Catheter placed: ??Peripheral IV Catheter size: ??20g/1.88in Line Technique: ??Ultrasound Guidance Number of attempts: ??1 IV flushes: ??Without difficulty and positive blood return noted and IV luer locked Patient tolerance: ??Patient tolerated the procedure well and there were no complications IV site covered with: ??Transparent semipermeable dressing Comments: ?? Image of vein sent to PACS. I was able to draw blood for a green and lavender top tube from newly placed PIV. Tubes labeled at pt's bedside and handed off to Anthony [facility] for delivery to lab. Sammy Franco MD IV THERAPY ORDERABLES Fi nal Result * Magnesium (11/12/2022 2:07 PM EDT) Pathologist [facility] Magnesium, Plasma 2.0 1.9 - 2.4 mg/dL 11/12/2022 2:50 PM EDT [facility] Blood Venous blood specimen / Unknown Venipuncture / Unknown 11/12/2022 2:07 PM EDT 11/12/2022 2:10 PM EDT Elena Nixon MD LAB BLOOD ORDERABLES Final R esult Performing Organization Address City/State/[facility] Co de Phone Number [facility] [address] [place] [address] * (ABNORMAL) Comprehensive metabolic panel (11/12/2022 2:07 PM EDT) Pathologist [facility] Glucose, Plasma 100(H) 74 - 99 mg/dL 11/12/2022 2:50 PM EDT [facility] BUN, Plasma 4(L) 7 - 21 mg/dL 11/12/2022 2:50 PM EDT [facility] Creatinine, Plasma 0.66 0.60 - 1.10 mg/dL 11/12/2022 2:50 PM EDT [facility] BUN/Creatinine Ratio 6 11/12/2022 2:50 PM EDT [facility] Sodium, Plasma 137 136 - 145 mmol/L 11/12/2022 2:50 PM EDT [facility] Potassium, Plasma 3.7 3.7 - 4.8 mmol/L 11/12/2022 2:50 PM EDT [facility] Chloride, Plasma 99 97 - 107 mmol/L 11/12/2022 2:50 PM EDT [facility] CO2, Plasma 27 22 - 29 mmol/L 11/12/2022 2:50 PM EDT [facility] Anion Gap 11 6 - 16 mmol/L 11/12/2022 2:50 PM EDT [facility] Total Calcium, Plasma 8.9 8.9 - 10.2 mg/dL 11/12/2022 2:50 PM EDT [facility] Total Protein 6.8 6.3 - 7.9 g/dL 11/12/2022 2:50 PM EDT [facility] Albumin, Plasma 4.1 3.5 - 5.2 g/dL 11/12/2022 2:50 PM EDT [facility] AST, Plasma 17 10 - 35 U/L 11/12/2022 2:50 PM EDT [facility] Comment:Hemolyzed, result ma y be falsely increased. ALT, Plasma 37(H) 10 - 35 U/L 11/12/2022 2:50 PM EDT [facility] Alkaline Phosphatase, Plasma 84 35 - 104 U/L 11/12/2022 2:50 PM EDT [facility] Total Bilirubin, Plasma 0.4 0.2 - 1.1 mg/dL 11/12/2022 2:50 PM EDT [facility] eGFRcr 117.5 mL/min/1.7 3m*2 11/12/2022 2:50 PM EDT [facility] Comment:Reported eGFRcr in m L/min/1.73m2 is based the CKD-EPI 2020 equation that does not use a race coefficient. Blood Venous blood specimen / Unknown Venipuncture / Unknown 11/12/2022 2:07 PM EDT 11/12/2022 2:10 PM EDT Elena Nixon MD LAB BLOOD ORDERABLES Final R esult [facility] [address] [place] [address] * (ABNORMAL) CBC W/O Differential (11/12/2022 2:07 PM EDT) WBC Count 5.68 3.70 - 10.30 10*3/uL LAB HEMATOLOGY METHOD 11/12/2022 2:14 PM EDT [facility] RBC Count 4.53 3.90 - 5.20 10*6/uL LAB HEMATOLOGY METHOD 11/12/2022 2:14 PM EDT [facility] HGB 12.0 11.2 - 15.7 g/dL LAB HEMATOLOGY METHOD 11/12/2022 2:14 PM EDT [facility] HCT 37.0 34.0 - 45.0 % LAB HEMATOLOGY METHOD 11/12/2022 2:14 PM EDT [facility] Platelet Count 231 155 - 369 10*3/uL LAB HEMATOLOGY METHOD 11/12/2022 2:14 PM EDT [facility] MCV 82 79 - 98 fL LAB HEMATOLOGY METHOD 11/12/2022 2:14 PM EDT [facility] MCH 26.5 26.0 - 32.0 pg LAB HEMATOLOGY METHOD 11/12/2022 2:14 PM EDT [facility] MCHC 32.4 30.7 - 35.5 g/dL LAB HEMATOLOGY METHOD 11/12/2022 2:14 PM EDT [facility] RDW 16.1(H) 11.5 - 14.5 % LAB HEMATOLOGY METHOD 11/12/2022 2:14 PM EDT [facility] MPV 9.1 8.8 - 12.5 fL LAB HEMATOLOGY METHOD 11/12/2022 2:14 PM EDT [facility] nRBC 0.0 <=0.0 per 100 WBCs LAB HEMATOLOGY METHOD 11/12/2022 2:14 PM EDT [facility] Blood Venous blood specimen / Unknown Venipuncture / Unknown 11/12/2022 2:07 PM EDT 11/12/2022 2:10 PM EDT us Elena Nixon MD LAB BLOOD ORDERABLES Final R esult [facility] [address] [place] [id number] * CT Abdomen Pelvis wo IV Contrast (11/11/2022 4:54 PM EDT) Anatomical Region Laterality Modality Abdomen, Pelvis Computed Tomogra phy Impressions 11/11/2022 5:09 PM EDT No findings to suggest pancreatitis. No acute findings in the abdomen and pelvis. Unchanged medial right breast soft tissue nodule. CRITICAL RESULT: ?? No. COMMUNICATION: Per this written report. Drafted by Beba Bourgeois MD on 11/11/2022 5:04 PM Final report signed by Beba Bourgeois MD on 11/11/2022 5:09 PM Narrative 11/11/2022 5:09 PM EDT CLINICAL INDICATION: Pancreatitis, acute, severe TECHNIQUE: Multiple axial CT images were obtained from lung bases through pubic symphysis without the administration of IV contrast. Reformatted images in the coronal and sagittal planes were generated from the axial data set to facilitate diagnostic accuracy. Total DLP (Dose-Length Product): 734.25 mGy.cm. Please note: The reported value represents the total of one or more individual components during the CT acquisition on this date and at this time, and as such, the same value may appear in more than one CT report depending on the interpreting/reporting physicians. COMPARISON: October 18, 2022 FINDINGS: Lower Chest: Right lung base 3 mm pulmonary nodule appears unchanged (series 3 image 40). Analysis of the abdominopelvic viscera is limited by the absence of intravenous contrast material. Solid Abdominal Organs: Homogenous hepatic attenuation. Prior cholecystectomy. No biliary ductal dilatation. Unremarkable spleen, pancreas, bilateral adrenal glands and kidneys. No hydronephrosis. GI Tract/Mesentery/Peritoneum: Ingested material in the stomach. The large and small bowel appear normal in caliber. Normal appendix. No evidence of inflammatory change. No suspicious peritoneal/mesenteric findings. Pelvic Viscera: Partially distended bladder without abnormality. Unremarkable uterus and bilateral ovaries. Lymph Nodes/Vasculature: No lymphadenopathy by CT size criteria. The aortoiliac vasculature is normal in caliber. Free Fluid: No free fluid in the abdomen or pelvis. Musculoskeletal and Body Wall: No acute bony abnormalities. Redemonstration of medial right breast soft tissue nodule, partially imaged measuring 2.2 cm, unchanged (series 3 image 4). Procedure Note Beba Bourgeois MD - 11/11/2022 CLINICAL INDICATION: Pancreatitis, acute, severe TECHNIQUE: Multiple axial CT images were obtained from lung bases through pubicsymphysis without the administration of IV contrast. Reformatted images inthe coronal and sagittal planes were generated from the axial data set tofacilitate diagnostic accuracy. Total DLP (Dose-Length Product): 734.25 mGy.cm. Please note: The reportedvalue represents the total of one or more individual components during theCT acquisition on this date and at this time, and as such, the same valuemay appear in more than one CT report depending on theinterpreting/reporting physicians. COMPARISON: October 18, 2022 FINDINGS: Lower Chest: Right lung base 3 mm pulmonary nodule appears unchanged(series 3 image 40). Analysis of the abdominopelvic viscera is limited by the absence ofintravenous contrast material. Solid Abdominal Organs: Homogenous hepatic attenuation. Priorcholecystectomy. No biliary ductal dilatation. Unremarkable spleen,pancreas, bilateral adrenal glands and kidneys. No hydronephrosis. GI Tract/Mesentery/Peritoneum: Ingested material in the stomach. The largeand small bowel appear normal in caliber. Normal appendix. No evidence ofinflammatory change. No suspicious peritoneal/mesenteric findings. Pelvic Viscera: Partially distended bladder without abnormality.Unremarkable uterus and bilateral ovaries. Lymph Nodes/Vasculature: No lymphadenopathy by CT size criteria. Theaortoiliac vasculature is normal in caliber. Free Fluid: No free fluid in the abdomen or pelvis. Musculoskeletal and Body Wall: No acute bony abnormalities.Redemonstration of medial right breast soft tissue nodule, partiallyimaged measuring 2.2 cm, unchanged (series 3 image 4). IMPRESSION: No findings to suggest pancreatitis. No acute findings in the abdomen and pelvis. Unchanged medial right breast soft tissue nodule. CRITICAL RESULT: No. COMMUNICATION: Per this written report. Drafted by Beba Bourgeois MD on 11/11/2022 5:04 PM Final report signed by Beba Bourgeois MD on 11/11/2022 5:09 PM us Elena Nixon MD IM CT PROCEDURES Final Resu lt * , urine (11/11/2022 3:35 PM EDT) Urine Negative Negative 4:21 PM EDT [facility] Comment:False negative resul ts have been reported in some women after 7 weeks of gestation. Plasma hCG testing is recommended if clinically indicated. Urine Spec Grav <=1.005 <=1.005 to >=1.030 11/11/2022 4:21 PM EDT [facility] Comment:False negative resul ts may be obtained in dilute urine (specific gravity <1.010). Plasma HCG testing is recommended. Urine Urine specimen obtained by clean catch procedure / Unknown Non-blood Collection / Unknown 11/11/2022 3:35 PM EDT 11/11/2022 3:41 PM EDT Elena Nixon MD LAB URINE ORDERABLES Final R esult Performing Organization Address City/[facility]/ZIP Co de Phone Number [facility] [address] [place] [address] * (ABNORMAL) Triglycerides (11/11/2022 8:17 AM EDT) Triglycerides, Plasma 235(H) <150 mg/dL 11/11/2022 3:37 PM EDT [facility] Comment: Triglyceride Reference Range (age >17 years): Desirable:?? <150 mg/dL Borderline high:?? 150 to 199 mg/dL High:?? 200 to 499 mg/dL Very high:?? >499 mg/dL Increased risk of pancreatitis:?? >1000 mg/dL Fasting greater than or equal to 12 hours? Unknown 11/11/2022 3:37 PM EDT [facility] Blood Venous blood specimen / Unknown Venipuncture / Unknown 11/11/2022 8:17 AM EDT 11/11/2022 8:19 AM EDT Elena Nixon MD LAB BLOOD ORDERABLES Final R esult [facility] [address] [place] [address] * Morphology (11/11/2022 8:17 AM EDT) RBC Morphology Slide Reviewed LAB HEMATOLOGY METHOD 11/11/2022 8:47 AM EDT [facility] Platelet Estimate Platelet count not valid due to clumping. Appears normal. LAB HEMATOLOGY METHOD 11/11/2022 8:47 AM EDT [facility] Clumped Platelets Present LAB HEMATOLOGY METHOD 11/11/2022 8:47 AM EDT [facility] Blood Venous blood specimen / Unknown Venipuncture / Unknown 11/11/2022 8:17 AM EDT 11/11/2022 8:19 AM EDT us Sammy Franco MD LAB BLOOD ORDERABLES Fin al Result Performing Organization Address City/[facility] Co de Phone Number [facility] [address] [place] [address] * Lipase, Plasma (11/11/2022 8:17 AM EDT) Lipase, Plasma 21 19 - 63 U/L 11/11/2022 8:52 AM EDT [facility] Blood Venous blood specimen / Unknown Venipuncture / Unknown 11/11/2022 8:17 AM EDT 11/11/2022 8:19 AM EDT Sammy Franco MD LAB BLOOD ORDERABLES Fin al Result Performing Organization Address [facility] de Phone Number [facility] [address] [place] [address] * (ABNORMAL) CBC and Differential (11/11/2022 8:17 AM EDT) WBC Count 6.88 3.70 - 10.30 10*3/uL LAB HEMATOLOGY METHOD 11/11/2022 8:47 AM EDT [facility] RBC Count 5.19 3.90 - 5.20 10*6/uL LAB HEMATOLOGY METHOD 11/11/2022 8:47 AM EDT [facility] HGB 13.8 11.2 - 15.7 g/dL LAB HEMATOLOGY METHOD 11/11/2022 8:47 AM EDT [facility] HCT 42.1 34.0 - 45.0 % LAB HEMATOLOGY METHOD 11/11/2022 8:47 AM EDT [facility] Platelet Count LAB HEMATOLOGY METHOD 11/11/2022 8:47 AM EDT [facility] Comment:Platelet count not v alid due to clumping. Appears Normal. MCV 81 79 - 98 fL LAB HEMATOLOGY METHOD 11/11/2022 8:47 AM EDT [facility] MCH 26.6 26.0 - 32.0 pg LAB HEMATOLOGY METHOD 11/11/2022 8:47 AM EDT [facility] MCHC 32.8 30.7 - 35.5 g/dL LAB HEMATOLOGY METHOD 11/11/2022 8:47 AM EDT [facility] RDW 16.4(H) 11.5 - 14.5 % LAB HEMATOLOGY METHOD 11/11/2022 8:47 AM EDT [facility] MPV LAB HEMATOLOGY METHOD 11/11/2022 8:47 AM EDT [facility] Comment:Not Measured nRBC 0.0 <=0.0 per 100 WBCs LAB HEMATOLOGY METHOD 11/11/2022 8:47 AM EDT [facility] Differential Type Automated LAB HEMATOLOGY METHOD 11/11/2022 8:47 AM EDT [facility] Neutrophils % 63.0 % LAB HEMATOLOGY METHOD 11/11/2022 8:47 AM EDT [facility] Lymphocytes % 28.0 % LAB HEMATOLOGY METHOD 11/11/2022 8:47 AM EDT [facility] Monocytes % 6.0 % LAB HEMATOLOGY METHOD 11/11/2022 8:47 AM EDT [facility] Eosinophils % 1.0 % LAB HEMATOLOGY METHOD 11/11/2022 8:47 AM EDT [facility] Basophils % 1.0 % LAB HEMATOLOGY METHOD 11/11/2022 8:47 AM EDT [facility] Immature Granulocytes % 1.0 % LAB HEMATOLOGY METHOD 11/11/2022 8:47 AM EDT [facility] Neutrophils Absolute 4.38 1.60 - 6.10 10*3/uL LAB HEMATOLOGY METHOD 11/11/2022 8:47 AM EDT [facility] Lymphocytes Absolute 1.91 1.20 - 3.90 10*3/uL LAB HEMATOLOGY METHOD 11/11/2022 8:47 AM EDT [facility] Monocytes Absolute 0.39 0.30 - 0.90 10*3/uL LAB HEMATOLOGY METHOD 11/11/2022 8:47 AM EDT [facility] Eosinophils Absolute 0.09 0.00 - 0.50 10*3/uL LAB HEMATOLOGY METHOD 11/11/2022 8:47 AM EDT [facility] Basophils Absolute 0.06 0.00 - 0.10 10*3/uL LAB HEMATOLOGY METHOD 11/11/2022 8:47 AM EDT [facility] Immature Granulocytes Absolute 0.05 0.00 - 0.06 10*3/uL LAB HEMATOLOGY METHOD 11/11/2022 8:47 AM EDT [facility] Blood Venous blood specimen / Unknown Venipuncture / Unknown 11/11/2022 8:17 AM EDT 11/11/2022 8:19 AM EDT [facility] - 11/11/2022 8:47 AM EDT Therapeutic decision making should be based on absolute values, rather than percentages. us Sammy Franco MD LAB BLOOD ORDERABLES Fin al Result [facility] [address] [place] [id number] * (ABNORMAL) Comprehensive Metabolic Panel, Plasma (11/11/2022 8:17 AM EDT) Glucose, Plasma 109(H) 74 - 99 mg/dL 11/11/2022 8:52 AM EDT [facility] BUN, Plasma 13 7 - 21 mg/dL 11/11/2022 8:52 AM EDT [facility] Creatinine, Plasma 0.60 0.60 - 1.10 mg/dL 11/11/2022 8:52 AM EDT [facility] BUN/Creatinine Ratio 22 11/11/2022 8:52 AM EDT [facility] Sodium, Plasma 135(L) 136 - 145 mmol/L 11/11/2022 8:52 AM EDT [facility] Potassium, Plasma 4.2 3.7 - 4.8 mmol/L 11/11/2022 8:52 AM EDT [facility] Chloride, Plasma 97 97 - 107 mmol/L 11/11/2022 8:52 AM EDT [facility] CO2, Plasma 20(L) 22 - 29 mmol/L 11/11/2022 8:52 AM EDT [facility] Anion Gap 18(H) 6 - 16 mmol/L 11/11/2022 8:52 AM EDT [facility] Total Calcium, Plasma 9.7 8.9 - 10.2 mg/dL 11/11/2022 8:52 AM EDT [facility] Total Protein 8.0(H) 6.3 - 7.9 g/dL 11/11/2022 8:52 AM EDT [facility] Albumin, Plasma 4.6 3.5 - 5.2 g/dL 11/11/2022 8:52 AM EDT [facility] AST, Plasma 33 10 - 35 U/L 11/11/2022 8:52 AM EDT [facility] ALT, Plasma 56(H) 10 - 35 U/L 11/11/2022 8:52 AM EDT [facility] Alkaline Phosphatase, Plasma 105(H) 35 - 104 U/L 11/11/2022 8:52 AM EDT [facility] Total Bilirubin, Plasma 0.4 0.2 - 1.1 mg/dL 11/11/2022 8:52 AM EDT [facility] eGFRcr 120.2 mL/min/1.7 3m*2 11/11/2022 8:52 AM EDT [facility] Comment:Reported eGFRcr in m L/min/1.73m2 is based the CKD-EPI 2020 equation that does not use a race coefficient. Blood Venous blood specimen / Unknown Venipuncture / Unknown 11/11/2022 8:17 AM EDT 11/11/2022 8:19 AM EDT us Sammy Franco MD LAB BLOOD ORDERABLES Fin al Result [facility] [address] [place] [address] documented in this encounter Visit Diagnoses Diagnosis Chronic pancreatitis, unspecified pancreatitis type (CMS/HCC)- Primary Chronic pancreatitis, unspecified pancreatitis type (CMS/HCC) documented in this encounter Admitting Diagnoses Diagnosis Chronic pancreatitis, unspecified pancreatitis type (CMS/HCC) documented in this encounter Administered Medications Inactive Administered Medications - up to 3 most recent administrations Medication Order MAR Action Action Date Dose Rate Site cyanocobalamin (Vitamin B-12) tablet 1,000 mcg 1,000 mcg, Oral, Daily, First dose (after last modification) on Thu11/11/22 at 1255, Until Discontinued, Routine Given 11/14/2022 8:05 AM EDT 1,000 mcg Given 11/13/2022 8:54 AM EDT 1,000 mcg Given 11/12/2022 8:11 AM EDT 1,000 mcg enoxaparin (Lovenox) syringe 40 mg 40 mg, Subcutaneous, Daily, First dose on Thu11/12/22 at 0900, Until Discontinued, Routine Given 11/14/2022 8:06 AM EDT 40 mg Left Lower Abdomen Given 11/13/2022 8:54 AM EDT 40 mg Le ft Lower Abdomen Given 11/12/2022 8:11 AM EDT 40 mg Le ft Lower Abdomen famotidine (Pepcid) tablet 20 mg 20 mg, Oral, 2 times daily, First dose on Thu11/11/22 at 1250, Until Discontinued, Routine Given 11/14/2022 8:05 AM EDT 20 mg Given 11/13/2022 8:50 PM EDT 20 mg Given 11/13/2022 8:54 AM EDT 20 mg HYDROmorphone (Dilaudid) injection 0.25 mg 0.25 mg, Intravenous, Once, 1 dose, On Thu11/13/22 at 2200, Routine Given 11/13/2022 9:50 PM EDT 0.25 mg HYDROmorphone (Dilaudid) injection 0.5 mg 0.5 mg, Intravenous, Once, 1 dose, On Thu11/11/22 at 1110, STAT Given 11/11/2022 11:16 AM EDT 0.5 mg HYDROmorphone (Dilaudid) injection 0.5 mg 0.5 mg, Intravenous, Every 6 hours PRN, Starting on Thu11/12/22 at 1200, Until Thu11/13/22 at 0841, Routine, severe pain Given 11/13/2022 7:12 AM EDT 0.5 mg Given 11/12/2022 8:27 PM EDT 0.5 mg Given 11/12/2022 2:16 PM EDT 0.5 mg HYDROmorphone (Dilaudid) injection 1 mg 1 mg, Intravenous, Once, 1 dose, On Thu11/11/22 at 0900, STAT Given 11/11/2022 9:15 AM EDT 1 mg HYDROmorphone (Dilaudid) injection 1 mg 1 mg, Intravenous, Every 2 hour PRN, Starting on Thu11/11/22 at 1228, Until Thu11/11/22 at 1836, Routine, severe pain Given 11/11/2022 5:10 PM EDT 1 mg HYDROmorphone (Dilaudid) injection 1 mg 1 mg, Intravenous, Every 3 hours PRN, Starting on Thu11/11/22 at 1845, Until Thu11/12/22 at 1151, Routine, severe pain Given 11/12/2022 2:13 AM EDT 1 mg Given 11/11/2022 9:48 PM EDT 1 mg lactated Ringer's bolus 500 mL 500 mL, Intravenous, Once, 1 dose, On Thu11/11/22 at 1240, Administer over 2 Hours, Routine New Bag 11/11/2022 1:18 PM EDT 500 mL 250 mL/hr lactated Ringer's infusion 1,000 mL 1,000 mL, Intravenous, Once, 1 dose, On Thu11/11/22 at 0710, STAT New Bag 11/11/2022 8:02 AM EDT 1,000 mL lactated Ringer's infusion 75 mL/hr, Intravenous, Continuous, Starting on Thu11/11/22 at 1240, Until Thu11/12/22 at 1737, Routine Rate/Dose Change 11/12/2022 2:27 PM EDT 75 mL/hr 75 mL/hr New Bag 11/11/2022 3:32 PM EDT 150 mL/hr 150 mL/hr LORazepam (Ativan) tablet 2 mg 2 mg, Oral, 2 times daily, First dose on Thu11/11/22 at 1330, Until Discontinued, Routine Given 11/14/2022 8:05 AM EDT 2 mg Given 11/13/2022 8:50 PM EDT 2 mg Given 11/13/2022 8:53 AM EDT 2 mg morphine PF 6 mg 6 mg, Intravenous, Once, 1 dose, On Thu11/11/22 at 0710, STAT Given 11/11/2022 8:05 AM EDT 6 mg oxyCODONE (Roxicodone) immediate release tablet 10 mg 10 mg, Oral, Every 4 hours PRN, Starting on Thu11/11/22 at 1228, Until Thu11/14/22 at 1549, Routine, moderate pain Given 11/14/2022 9:11 AM EDT 10 mg Given 11/14/2022 5:17 AM EDT 10 mg Given 11/14/2022 1:11 AM EDT 10 mg pancrelipase (Creon) 6000 unit capsule 1 capsule, Oral, 3 times daily with meals, First dose on Thu11/12/22 at 1000, Until Discontinued, Routine Given 11/14/2022 8:06 AM EDT 1 capsule Given 11/13/2022 5:40 PM EDT 1 capsule Given 11/13/2022 12:16 PM EDT 1 capsule pantoprazole (Protonix) EC tablet 40 mg 40 mg, Oral, 2 times daily, First dose on Thu11/11/22 at 1250, Until Discontinued, Routine Given 11/14/2022 8:05 AM EDT 40 mg Given 11/13/2022 8:49 PM EDT 40 mg Given 11/13/2022 8:54 AM EDT 40 mg potassium chloride CR (Klor-Con) ER tablet 30 mEq 30 mEq, Oral, Every 4 hours, 2 doses, First dose on Thu11/13/22 at 0800, Last dose on Thu11/13/22 at 1200, Routine Given 11/13/2022 12:16 PM EDT 30 mEq Given 11/13/2022 8:53 AM EDT 30 mEq pregabalin (Lyrica) capsule 300 mg 300 mg, Oral, 2 times daily, First dose (after last reorder) on Thu11/11/22 at 1435, Until Discontinued Given 11/14/2022 8:05 AM EDT 300 mg Given 11/13/2022 8:49 PM EDT 300 mg Given 11/13/2022 8:53 AM EDT 300 mg prochlorperazine (Compazine) injection 10 mg 10 mg, Intravenous, Every 6 hours PRN, Starting on Thu11/11/22 at 1230, Until Thu11/13/22 at 0841, Routine, nausea, vomiting Given 11/13/2022 4:31 AM EDT 1 0 mg Given 11/12/2022 8:28 PM EDT 10 mg Given 11/12/2022 2:17 PM EDT 10 mg prochlorperazine (Compazine) tablet 10 mg 10 mg, Oral, Every 6 hours PRN, Starting on Thu11/13/22 at 0841, Until Thu11/14/22 at 1549, Routine, nausea, vomiting Given 11/14/2022 3:36 AM EDT 10 mg Given 11/13/2022 4:48 PM EDT 10 mg promethazine (Phenergan) injection 12.5 mg 12.5 mg, Intravenous, Once, 1 dose, On Thu11/11/22 at 0710, STAT Given 11/11/2022 8:04 AM EDT 12.5 mg promethazine (Phenergan) injection 12.5 mg 12.5 mg, Intravenous, Once, 1 dose, On Thu11/11/22 at 1110, STAT Given 11/11/2022 11:16 AM EDT 12.5 mg promethazine (Phenergan) injection 25 mg 25 mg, Intravenous, Once, 1 dose, On Thu11/13/22 at 2245, Routine Given 11/13/2022 10:43 PM EDT 25 mg promethazine (Phenergan) tablet 25 mg 25 mg, Oral, Every 6 hours PRN, Starting on Thu11/11/22 at 1230, Until Thu11/13/22 at 0841, Routine, nausea, vomiting Given 11/11/2022 8:54 PM EDT 25 mg sodium chloride 0.9 % flush 10 mL 10 mL, Intravenous, Every 8 hours PRN, Starting on Thu11/11/22 at 1225, Until Thu11/14/22 at 1549, Routine, line care sodium chloride 0.9 % flush 10 mL 10 mL, Intravenous, As needed, Starting on Thu11/11/22 at 1225, Until Thu11/14/22 at 1549, Routine, line care sucralfate (Carafate) 1 GM/10ML suspension 1 g 1 g, Oral, 4 times daily, First dose on Thu11/12/22 at 1400, Until Discontinued, Routine Given 11/14/2022 8:06 AM EDT 1 g Given 11/13/2022 9:34 PM EDT 1 g Given 11/13/2022 5:01 PM EDT 1 g documented in this encounter Active and Recently Administered Medications Times are shown in EDT. Scheduled Medication Order 11/12/2022 11/13/2022 11/14/2022 cyanocobalamin (Vitamin B-12) tablet 1,000 mcg 1,000 mcg, Oral, Daily, First dose (after last modification) on Thu11/11/22 at 1255, Until Discontinued, Routine 0811 (Given - Provider: Hosea Farah RN) 0854 (Given - Provider: Hosea Farah RN) 0805 (Given - Provider: Hosea Farah, RN) enoxaparin (Lovenox) syringe 40 mg 40 mg, Subcutaneous, Daily, First dose on Thu11/12/22 at 0900, Until Discontinued, Routine 0811 (Given - Provider: Hosea Farah RN) 0854 (Given - Provider: Hosea Farah RN) 0806 (Given - Provider: Hosea Farah RN) famotidine (Pepcid) tablet 20 mg 20 mg, Oral, 2 times daily, First dose on Thu11/11/22 at 1250, Until Discontinued, Routine 0810 (Given - Provider: Hosea Farah RN)2028 (Given - Provider: Manuel Bourgeois RN) 0854 (Given - Provider: Hosea Farah, CHANDNI)2049 (Given - Provider: Manuel Bourgeois RN) 08 (Given - Provider: Hosea Farah RN) HYDROmorphone (Dilaudid) injection 0.25 mg (COMPLETED) 0.25 mg, Intravenous, Once, 1 dose, On Thu11/13/22 at 2200, Routine 2150 (Given - Provider: Manuel Bourgeois, CHANDNI) LORazepam (Ativan) tablet 2 mg 2 mg, Oral, 2 times daily, First dose on Thu11/11/22 at 1330, Until Discontinued, Routine 0811 (Given - Provider: Hosea Farah RN)2028 (Given - Provider: Manuel Bourgeois RN) 0853 (Given - Provider: Hosea Farah, CHANDNI)2049 (Given - Provider: Manuel Bourgeois RN) 0805 (Given - Provider: Hosea Farah, CHANDNI) pancrelipase (Creon) 6000 unit capsule 1 capsule, Oral, 3 times daily with meals, First dose on Thu11/12/22 at 1000, Until Discontinued, Routine 1012 (Given - Provider: Hosea Farah RN)1305 (Given - Provider: Hosea Farah, CHANDNI)1726 (Given - Provider: Hosea Farah RN) 0853 (Given - Provider: Hosea Farah RN)1216 (Given - Provider: Hosea Farah, CHANDNI)1740 (Given - Provider: Hosea Farah RN) 0806 (Given - Provider: Hosea Farah RN)1230 (Canceled Entry - Provider: Automatic Discharge Provider - Comment: Automatically canceled at discontinue of medication order) pantoprazole (Protonix) EC tablet 40 mg 40 mg, Oral, 2 times daily, First dose on Thu11/11/22 at 1250, Until Discontinued, Routine 0810 (Given - Provider: Hosea Farah RN)2028 (Given - Provider: Manuel Bourgeois, CHANDNI) 0854 (Given - Provider: Hosea Farah RN)2048 (Given - Provider: Manuel Bourgeois RN) 0805 (Given - Provider: Hosea Farah RN) potassium chloride CR (Klor-Con) ER tablet 30 mEq (COMPLETED) 30 mEq, Oral, Every 4 hours, 2 doses, First dose on Thu11/13/22 at 0800, Last dose on Thu11/13/22 at 1200, Routine 0853 (Given - Provider: Hosea Farah RN)121 (Given - Provider: Hosea Farah RN) pregabalin (Lyrica) capsule 300 mg 300 mg, Oral, 2 times daily, First dose (after last reorder) on Thu11/11/22 at 1435, Until Discontinued 0811 (Given - Provider: Hosea Farah RN)2027 (Given - Provider: Manuel Bourgeois RN) 0853 (Given - Provider: Hosea Farah, CHANDNI)2048 (Given - Provider: Manuel Bourgeois, CHANDNI) 0805 (Given - Provider: Hosea Farah RN) promethazine (Phenergan) injection 25 mg (COMPLETED) 25 mg, Intravenous, Once, 1 dose, On Thu11/13/22 at 2245, Routine 2243 (Given - Provider: Manuel Bourgeois, CHANDNI) sucralfate (Carafate) 1 GM/10ML suspension 1 g 1 g, Oral, 4 times daily, First dose on Thu11/12/22 at 1400, Until Discontinued, Routine 1305 (Given - Provider: Hosea Farah RN)1726 (Given - Provider: Hosea Farah RN)2216 (Given - Provider: Manuel Bourgeois, CHANDNI) 0854 (Given - Provider: Hosea Farah RN)1601 (Not Given - Provider: Hosea Farah RN - Reason: Patient/family refused)1701 (Given - Provider: Hosea Farah RN)2134 (Given - Provider: Manuel Bourgeois, CHANDNI) 0806 (Given - Provider: Hosea Farah RN)1400 (Canceled Entry - Provider: Automatic Discharge Provider - Comment: Automatically canceled at discontinue of medication order) Continuous Medication Order 11/12/2022 11/13/2022 11/14/2022 lactated Ringer's infusion () 75 mL/hr, Intravenous, Continuous, Starting on Thu11/11/22 at 1240, Until Thu11/12/22 at 1737, Routine 1427 (Rate/Dose Change - Provider: Hosea Farah RN) PRN Medication Order 11/12/2022 11/13/2022 11/14/2022 acetaminophen (Tylenol) tablet 1,000 mg 1,000 mg, Oral, Every 6 hours PRN, Starting on Thu11/11/22 at 1246, Until Thu11/14/22 at 1549, Routine, mild pain, moderate pain, headaches, fever HYDROmorphone (Dilaudid) injection 0.5 mg (CANCELED) 0.5 mg, Intravenous, Every 6 hours PRN, Starting on Thu11/12/22 at 1200, Until Annabel 11/13/22 at 0841, Routine, severe pain 1416 (Given - Provider: Hosea Farah RN)2027 (Given - Provider: Manuel Bourgeois, CHANDNI) 0712 (Given - Provider: Manuel Bourgeois RN) HYDROmorphone (Dilaudid) injection 1 mg (CANCELED) 1 mg, Intravenous, Every 3 hours PRN, Starting on Thu11/11/22 at 1845, Until Thu11/12/22 at 1151, Routine, severe pain 0213 (Given - Provider: Samantha Moody LPN)0628 [facility]: Samantha Moody LPN) oxyCODONE (Roxicodone) immediate release tablet 10 mg 10 mg, Oral, Every 4 hours PRN, Starting on Thu11/11/22 at 1228, Until Thu11/14/22 at 1549, Routine, moderate pain 0811 (Given - Provider: Hosea Farah RN)1154 (Given - Provider: Hosea Farah RN)1630 (Given - Provider: Hosea Farah RN)2223 (Given - Provider: Manuel Bourgeois RN) 0431 (Given - Provider: Manuel Bourgeois RN)0902 (Given - Provider: Hosea Farah RN)1258 (Given - Provider: Hosea Farah, CHANDNI)1648 (Given - Provider: Hosea Farah, CHANDNI)2050 (Given - Provider: Manuel Bourgeois RN) 0111 (Given - Provider: Manuel Bourgeois RN)0517 (Given - Provider: Manuel Bourgeois, RN)0911 (Given - Provider: Hosea Farah, CHANDNI) prochlorperazine (Compazine) injection 10 mg (CANCELED)(Linked Group 1) 10 mg, Intravenous, Every 6 hours PRN, Starting on Thu11/11/22 at 1230, Until Thu11/13/22 at 0841, Routine, nausea, vomiting 0213 (Given - Provider: Samantha Moody LPN)1417 (Given - Provider: Hosea Farah RN)2028 (Given - Provider: Manuel Bourgeois RN) 0431 (Given - Provider: Manuel Bourgeois RN) prochlorperazine (Compazine) tablet 10 mg 10 mg, Oral, Every 6 hours PRN, Starting on Thu11/13/22 at 0841, Until Thu11/14/22 at 1549, Routine, nausea, vomiting 1648 (Given - Provider: Hosea Farah RN) 0336 (Given - Provider: Manuel Bourgeois RN) sodium chloride 0.9 % flush 10 mL(Linked Group 2) 10 mL, Intravenous, Every 8 hours PRN, Starting on Thu11/11/22 at 1225, Until Thu11/14/22 at 1549, Routine, line care sodium chloride 0.9 % flush 10 mL(Linked Group 2) 10 mL, Intravenous, As needed, Starting on Thu11/11/22 at 1225, Until Thu11/14/22 at 1549, Routine, line care Linked Groups Order Group 1: prochlorperazine (Compazine) injection 10 mg (CANCELED)Jump to med 10 mg, Intravenous, Every 6 hours PRN, Starting on Thu11/11/22 at 1230, Until Annabel 11/13/22 at 0841, Routine, nausea, vomiting Or promethazine (Phenergan) tablet 25 mg (CANCELED) 25 mg, Oral, Every 6 hours PRN, Starting on Thu11/11/22 at 1230, Until Annabel 11/13/22 at 0841, Routine, nausea, vomiting Group 2: Insert peripheral IV (COMPLETED) Once, On Thu11/11/22 at 1226, For 1 occurrence And Saline lock IV (COMPLETED) Once, On Thu11/11/22 at 1226, For 1 occurrence And sodium chloride 0.9 % flush 10 mLJump to med 10 mL, Intravenous, Every 8 hours PRN, Starting on Thu11/11/22 at 1225, Until Thu11/14/22 at 1549, Routine, line care And sodium chloride 0.9 % flush 10 mLJump to med 10 mL, Intravenous, As needed, Starting on Thu11/11/22 at 1225, Until Thu11/14/22 at 1549, Routine, line care documented in this encounter Additional Health Concerns Assessment Noted Time A fall risk assessment has been complete d for the patient 11/21/2020 2:30 PM EDT documented as of this encounter Care Teams Warehouse Freight Handler Relationship Specialty Start Date End Date Elmo Escobar MD PCP - General 10/18/20 01/05/23 documented as of this encounter
--- OUTSIDE RECORDS SUMMARY | 2024-02-03 15:18 | XMS_ITS | Encounter Summary ---
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
--- OUTSIDE RECORDS SUMMARY | 2024-02-03 15:18 | XMS_ITS | Encounter Summary ---
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
--- OUTSIDE RECORDS SUMMARY | 2024-02-03 15:18 | XMS_ITS | Encounter Summary ---
Author Organization Healthcare Address [address] [place] [address] Care Team Providers Care Anodize Machine Operator Name Role Phone Elmo Escobar MD Primary Care Provider [phone] Reason for Visit * Reason Comments Abdominal Pain * Auth/Cert (Routine) Specialty Diagnoses / Procedures Referred By Susy t Referred To Contact Diagnoses Acute on chronic pancreatitis (CMS/HCC) Ana Cristina Feliz MD [address] [place] [address] Phone: tel: fax: [facility] [address] [place] [address] Phone: tel: Referral ID Status Reason Start Date Expiration Date Visits Re quested Visits Authorized [id number] 1 1 Encounter Details Date Type Department Care Team (Late st Contact Info) Description 11/17/2022 12:33 PM EDT - 11/17/2022 5:06 PM EDT Emergency [facility] [address] [place] [address] Agnes Cooley MD [address] [place] [address] Carter Donis MD [address] [place] [address] Epigastric pain (Primary Dx) Discharge Disposition: Home [...] drink first t caleb in the 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 02/23/19 24 ondansetron ODT (Zofran-ODT) 4 MG disintegrating tablet Take 1 tablet (4 mg) by mouth every 6 (six) hours if needed for nausea. 12 tablet 11/17/2022 11/19/19 23 oxyCODONE (Roxicodone) 10 MG immediate release tablet Take 1 tablet (10 mg) by mouth every 6 (six) hours if needed for moderate pain for up to 3 days. 12 tablet 11/14/2022 11/22/19 23 pancrelipase, Dvj-Jopb-Qdcg, (Creon) [id number] units capsule Take 1 capsule by mouth [...] Provider Notes - Agnes Cooley MD - 11/17/2022 11:36 AM EDT - HPI Chief Complaint Patient presents with Abdominal Pain Lila Mcnally is a 36 y.o. female with history of chronic pancreatitis s/p lap CCY and ERCP who presents to the ED with abdominal pain. Pt states her throbbing and stabbing LUQ abdominal pain recently began and has worsened since onset. Pt reports since onset of her pain she has developed some episodic diarrhea for 2 days and notes having 1 episode of non bloody vomiting yesterday. Pt was recently admitted 11/11-11/14 and was tolerating po with po pain control upon discharge. Pt believes she was dc too soon and thinks she may need readmission for pain control. She is also interested inpain pump placement now whereas she had declined this in the past. Pt is scheduled to see PCP 11/19 as f/u from her recent admission. She said that she planned to discuss pain pump then but thinks nowmay be better. She denies other complaints at this time. 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 by: Patient ventilation equipment tender used: No No data recorded Patient History [...] are negative. Physical Exam ED Triage Vitals [11/17/22 1159] Temp Heart Rate Resp BP 36.8 ??C (98.2 ??F) 112 22 (!) 143/90 SpO2 Temp Source Heart Rate Source Patient Position 98 % Oral -- Sitting BP Location FiO2 (%) Right arm -- Physical Exam Vitals and nursing note reviewed. Constitutional: General: She is not in acute distress. Comments: Lying on left side, holding abdomen HENT: Head: Normocephalic. Right Ear: External ear [...] There is no distension. Tenderness: There is generalized abdominal tenderness and tenderness in the epigastric area. Comments: Diffusely ttp without peritonitis Genitourinary: Comments: Deferred, denies symptoms Musculoskeletal: General: No deformity. Cervical back: Normal range of motion and neck supple. Skin: General: Skin is warm and dry. Coloration: Skin is not jaundiced or pale. Neurological: General: No focal deficit present. Mental Status: She is alert and oriented to person, place, and time. ED Course & MDM Clinical Impressions as of 11/17/22 1640 Epigastric pain - Medical Decision Making Lila Mcnally is a 36 y.o. female with history of chronic pancreatitis s/p lap CCY and ERCP who presents to the ED with abdominal pain. She was recently admitted and dc 3 days ago for similar issues and thinks she may need to be admitted for consideration of pain pump placement which she was offered previously. On exam, she has diffuse abd tenderness, no focal findings. Labs are pending at shift change. Have ordered 1L IVF, antiemetics, and morphine 6mg IV. Differential includes acute/chronic pancreatitis, pancreatic pseudocyst, other chronic abdominal pain, gastritis, PUD. Workup focused on evaluation of acute pancreatitis. CT abd/pelvis has been performed several times recently and never any sign of significant or surgical issue. Will defer at this time unless labs suggest need. Careturned over to Dr. Donis at shift change pending labs. Additional MDM: In order to fully explore differential these tests and treatments were ordered. Orders Placed This Encounter CBC w/diff CMP Magnesium Lipase Insert peripheral IV Medications sodium chloride 0.9 % bolus 1,000 mL (has no administration in time range) ondansetron (Zofran) injection 4 mg (has no administration in time range) morphine PF 6 mg (has no administration in time range) External notes independently obtained and reviewed and are pertinent for recent admission 11/11-11/14 Initial Assessment: Diffuse abd pain, well hydrated All ordered laboratory studies independently reviewed and interpreted by myself and pertinent for: Labs pending at shift change No indication for EKG at this time. Considering imaging if labs warrant. Reassessment: On re-evaluation of patient, patient endorsed significant improvement of symptoms. Ptjust had IV placed at shift change, awaiting meds and response. Pt may require consultation and/or admission based on workup which is pending. At this time, patient's care was transferred to the incoming attending. Patient's disposition is pending labs. DISPOSITION: Pending further evaluation 11/17/2022, 1:36 PM Scribe Attestation: This note was dictated to me, Batsheva Ibrahim, acting as a scribe for Agnes Phillip MD. Attending Attestation: This documentation was recorded by Batsheva Ibrahim acting as a scribe in my presence at the time of the encounter and accurately reflects the service I personally performed and the decisions made by me. ED Prescriptions None Sign Off Checklist Clinical Impression: See Transfer of Care note for Clinical Impression ED Disposition: See Transfer of Care note for ED Disposition - Agnes Cooley MD 11/17/22 1651 * ED Triage Notes - Angeles Palacios RN - 11/17/2022 11:36 AM EDT Patient reports she was recently hospitalized with pancreatitis and discharged but continues to have LUQ pain and unable to keep anything down * Progress Notes - Carter Donis MD - 11/17/2022 11:36 AM EDT I received sign-out and accepted care of this patient from the departing Dr Cooley. Please see the primary providers??? note for complete elements of the history, physical exam, and ED course. Illness Severity: Stable Patient Summary: Lila Mcnally is a 36 y.o. female with a PMHx of Past Medical History: Diagnosis Date Anxiety Arthritis Depression Fibromyalgia GERD (gastroesophageal reflux disease) Hypertension Nicotine dependence Obesity Pancreatitis presented to the ED with continued epigastric pain and nausea and vomiting in the setting of suspected chronic pancreatitis. Recently admitted for the same. Laboratory studies are fairly reassuring without elevation in lipase, without signs of JYOTSNA electrolyte derangement. Despite this patient is still complaining of significant pain although she states that her nausea has improved. I had an interactive discussion with the internal medicine service who reviewed the case and did not feel that they had justification for readmission at this time and had no further treatment modalities that required admission at this time she will be discharged on Zofran and oxycodone to follow-up with her team. Most recent vital signs: Visit Vitals BP (!) 137/100 Pulse 95 Temp 36.8 ??C (98.3 ??F) Resp 22 Wt 106 kg (232 lb 12.9 oz) SpO2 97% BMI 38.74 kg/m?? OB Status Having periods Smoking Status Every Day BSA 2.2 m?? Lab and imaging results: Labs Reviewed CBC WITH AUTO DIFFERENTIAL - Abnormal Result Value WBC Count 9.77 RBC Count 4.89 HGB 13.1 HCT 39.3 Platelet Count 265 MCV 80 MCH 26.8 MCHC 33.3 RDW 16.3 (*) MPV 9.5 nRBC 0.0 Differential Type Automated Neutrophils % 79.0 Lymphocytes % 16.0 Monocytes % 5.0 Eosinophils % 0.0 Basophils % 0.0 Immature Granulocytes % 0.0 Neutrophils Absolute 7.63 (*) Lymphocytes Absolute 1.57 Monocytes Absolute 0.45 Eosinophils Absolute 0.04 Basophils Absolute 0.04 Immature Granulocytes Absolute 0.04 Narrative: Therapeutic decision making should be based on absolute values, rather than percentages. COMPREHENSIVE METABOLIC PANEL, PLASMA - Abnormal Glucose, Plasma 103 (*) BUN, Plasma 8 Creatinine, Plasma 0.54 (*) BUN/Creatinine Ratio 15 Sodium, Plasma 132 (*) Potassium, Plasma 4.0 Chloride, Plasma 98 CO2, Plasma 24 Anion Gap 10 Total Calcium, Plasma 9.5 Total Protein 7.5 Albumin, Plasma 4.3 AST, Plasma 58 (*) ALT, Plasma 93 (*) Alkaline Phosphatase, Plasma 123 (*) Total Bilirubin, Plasma 0.5 eGFRcr 123.3 MAGNESIUM, PLASMA - Normal Magnesium, Plasma 2.1 LIPASE, PLASMA - Normal Lipase, Plasma 26 Action plan (To Do): Medications oxyCODONE (Roxicodone) immediate release tablet 10 mg (has no administration in time range) sodium chloride 0.9 % bolus 1,000 mL (1,000 mL Intravenous New Bag 11/17/221445) ondansetron (Zofran) injection 4 mg (4 mg Intravenous Given 9/25/23 1446) morphine PF 6 mg (6 mg Intravenous Given 11/17/22 1446) morphine PF 8 mg (8 mg Intravenous Given 11/17/22 1542) promethazine (Phenergan) injection 25 mg (25 mg Intravenous Given 11/17/22 1542) Disposition: dcd Clinical Impressions as of 11/17/22 1644 Epigastric pain - documented in this encounter Plan of Treatment Not on file documented as of this encounter Procedures Procedure Name Priority Date/Time Associated Diagnosis Comments CBC WITH AUTO DIFFERENTIAL STAT 11/17/2022 2:28 PM EDT MAGNESIUM, PLASMA STAT 11/17/2022 2:2 8 PM EDT LIPASE, PLASMA STAT 11/17/2022 2:28 PM EDT COMPREHENSIVE METABOLIC PANEL, PLASMA STAT 11/17/2022 2:28 PM EDT documented in this encounter Results * Lipase (11/17/2022 2:28 PM EDT) Lipase, Plasma 26 19 - 63 U/L 11/17/2022 3:10 PM EDT [facility] Blood Venous blood specimen / Unknown Venipuncture / Unknown 11/17/2022 2:28 PM EDT 11/17/2022 2:40 PM EDT us Agnes Cooley MD LAB BLOOD ORDERABLES Final R esult [facility] [address] [place] [address] * Magnesium (11/17/2022 2:28 PM EDT) Magnesium, Plasma 2.1 1.9 - 2.4 mg/dL 11/17/2022 3:10 PM EDT [facility] Blood Venous blood specimen / Unknown Venipuncture / Unknown 11/17/2022 2:28 PM EDT 11/17/2022 2:40 PM EDT us Agnes Cooley MD LAB BLOOD ORDERABLES Final R esult [facility] [address] [place] [address] * (ABNORMAL) CMP (11/17/2022 2:28 PM EDT) Pathologist [facility] Glucose, Plasma 103(H) 74 - 99 mg/dL 11/17/2022 3:10 PM EDT [facility] BUN, Plasma 8 7 - 21 mg/dL 11/17/2022 3:10 PM EDT [facility] Creatinine, Plasma 0.54(L) 0.60 - 1.10 mg/dL 11/17/2022 3:10 PM EDT [facility] BUN/Creatinine Ratio 15 11/17/2022 3:10 PM EDT [facility] Sodium, Plasma 132(L) 136 - 145 mmol/L 11/17/2022 3:10 PM EDT [facility] Potassium, Plasma 4.0 3.7 - 4.8 mmol/L 11/17/2022 3:10 PM EDT [facility] Chloride, Plasma 98 97 - 107 mmol/L 11/17/2022 3:10 PM EDT [facility] CO2, Plasma 24 22 - 29 mmol/L 11/17/2022 3:10 PM EDT [facility] Anion Gap 10 6 - 16 mmol/L 11/17/2022 3:10 PM EDT [facility] Total Calcium, Plasma 9.5 8.9 - 10.2 mg/dL 11/17/2022 3:10 PM EDT [facility] Total Protein 7.5 6.3 - 7.9 g/dL 11/17/2022 3:10 PM EDT [facility] Albumin, Plasma 4.3 3.5 - 5.2 g/dL 11/17/2022 3:10 PM EDT [facility] AST, Plasma 58(H) 10 - 35 U/L 11/17/2022 3:10 PM EDT [facility] ALT, Plasma 93(H) 10 - 35 U/L 11/17/2022 3:10 PM EDT [facility] Alkaline Phosphatase, Plasma 123(H) 35 - 104 U/L 11/17/2022 3:10 PM EDT [facility] Total Bilirubin, Plasma 0.5 0.2 - 1.1 mg/dL 11/17/2022 3:10 PM EDT [facility] eGFRcr 123.3 mL/min/1.7 3m*2 11/17/2022 3:10 PM EDT [facility] Comment:Reported eGFRcr in m L/min/1.73m2 is based the CKD-EPI 2020 equation that does not use a race coefficient. Blood Venous blood specimen / Unknown Venipuncture / Unknown 11/17/2022 2:28 PM EDT 11/17/2022 2:40 PM EDT us Agnes Cooley MD LAB BLOOD ORDERABLES Final R esult Performing Organization Address City/State/[facility] Co de Phone Number [facility] [address] [place] [address] * (ABNORMAL) CBC w/diff (11/17/2022 2:28 PM EDT) WBC Count 9.77 3.70 - 10.30 10*3/uL LAB HEMATOLOGY METHOD 11/17/2022 2:49 PM EDT [facility] RBC Count 4.89 3.90 - 5.20 10*6/uL LAB HEMATOLOGY METHOD 11/17/2022 2:49 PM EDT [facility] HGB 13.1 11.2 - 15.7 g/dL LAB HEMATOLOGY METHOD 11/17/2022 2:49 PM EDT [facility] HCT 39.3 34.0 - 45.0 % LAB HEMATOLOGY METHOD 11/17/2022 2:49 PM EDT [facility] Platelet Count 265 155 - 369 10*3/uL LAB HEMATOLOGY METHOD 11/17/2022 2:49 PM EDT [facility] MCV 80 79 - 98 fL LAB HEMATOLOGY METHOD 11/17/2022 2:49 PM EDT [facility] MCH 26.8 26.0 - 32.0 pg LAB HEMATOLOGY METHOD 11/17/2022 2:49 PM EDT [facility] MCHC 33.3 30.7 - 35.5 g/dL LAB HEMATOLOGY METHOD 11/17/2022 2:49 PM EDT [facility] RDW 16.3(H) 11.5 - 14.5 % LAB HEMATOLOGY METHOD 11/17/2022 2:49 PM EDT [facility] MPV 9.5 8.8 - 12.5 fL LAB HEMATOLOGY METHOD 11/17/2022 2:49 PM EDT [facility] nRBC 0.0 <=0.0 per 100 WBCs LAB HEMATOLOGY METHOD 11/17/2022 2:49 PM EDT [facility] Differential Type Automated LAB HEMATOLOGY METHOD 11/17/2022 2:49 PM EDT [facility] Neutrophils % 79.0 % LAB HEMATOLOGY METHOD 11/17/2022 2:49 PM EDT [facility] Lymphocytes % 16.0 % LAB HEMATOLOGY METHOD 11/17/2022 2:49 PM EDT [facility] Monocytes % 5.0 % LAB HEMATOLOGY METHOD 11/17/2022 2:49 PM EDT [facility] Eosinophils % 0.0 % LAB HEMATOLOGY METHOD 11/17/2022 2:49 PM EDT [facility] Basophils % 0.0 % LAB HEMATOLOGY METHOD 11/17/2022 2:49 PM EDT [facility] Immature Granulocytes % 0.0 % LAB HEMATOLOGY METHOD 11/17/2022 2:49 PM EDT [facility] Neutrophils Absolute 7.63(H) 1.60 - 6.10 10*3/uL LAB HEMATOLOGY METHOD 11/17/2022 2:49 PM EDT [facility] Lymphocytes Absolute 1.57 1.20 - 3.90 10*3/uL LAB HEMATOLOGY METHOD 11/17/2022 2:49 PM EDT [facility] Monocytes Absolute 0.45 0.30 - 0.90 10*3/uL LAB HEMATOLOGY METHOD 11/17/2022 2:49 PM EDT [facility] Eosinophils Absolute 0.04 0.00 - 0.50 10*3/uL LAB HEMATOLOGY METHOD 11/17/2022 2:49 PM EDT [facility] Basophils Absolute 0.04 0.00 - 0.10 10*3/uL LAB HEMATOLOGY METHOD 11/17/2022 2:49 PM EDT [facility] Immature Granulocytes Absolute 0.04 0.00 - 0.06 10*3/uL LAB HEMATOLOGY METHOD 11/17/2022 2:49 PM EDT [facility] Blood Venous blood specimen / Unknown Venipuncture / Unknown 11/17/2022 2:28 PM EDT 11/17/2022 2:40 PM EDT Narrative [facility] - 11/17/2022 2:49 PM EDT Therapeutic decision making should be based on absolute values, rather than percentages. us Agnes Cooley MD LAB BLOOD ORDERABLES Final R esult [facility] [address] [place] [id number] documented in this encounter Visit Diagnoses Diagnosis Epigastric pain- Primary Abdominal pain, epigastric documented in this encounter Administered Medications Inactive Administered Medications - up to 3 most recent administrations Medication Order MAR Action Action Date Dose Rate Site morphine PF 6 mg 6 mg, Intravenous, Once, 1 dose, On Thu11/17/22 at 1335, STAT Given 11/17/2022 2:46 PM EDT 6 mg morphine PF 8 mg 8 mg, Intravenous, Once, 1 dose, On Thu11/17/22 at 1530, STAT Given 11/17/2022 3:42 PM EDT 8 mg ondansetron (Zofran) injection 4 mg 4 mg, Intravenous, Once, 1 dose, On Thu11/17/22 at 1335, STAT Given 11/17/2022 2:46 PM EDT 4 mg oxyCODONE (Roxicodone) immediate release tablet 10 mg 10 mg, Oral, Every 4 hours PRN, 2 doses, Starting on Thu11/17/22 at 1639, Until Thu11/17/22 at 1906, Routine, severe pain Given 11/17/2022 5:00 PM EDT 10 mg promethazine (Phenergan) injection 25 mg 25 mg, Intravenous, Once, 1 dose, On Thu11/17/22 at 1530, STAT Given 11/17/2022 3:42 PM EDT 25 mg sodium chloride 0.9 % bolus 1,000 mL 1,000 mL, Intravenous, Once, 1 dose, On Thu11/17/22 at 1335, Administer over 15 Minutes, Routine New Bag 11/17/2022 2:46 PM EDT 1,000 mL 4000 m L/hr documented in this encounter Active and Recently Administered Medications Times are shown in EDT. Scheduled Medication Order 11/15/2022 11/16/2022 11/17/2022 morphine PF 6 mg (COMPLETED) 6 mg, Intravenous, Once, 1 dose, On Thu11/17/22 at 1335, STAT 1446 (Given - Provid er: Farida Amezcua RN) morphine PF 8 mg (COMPLETED) 8 mg, Intravenous, Once, 1 dose, On Thu11/17/22 at 1530, STAT 1542 (Given - Provid er: Glenny Venegas RN) ondansetron (Zofran) injection 4 mg (COMPLETED) 4 mg, Intravenous, Once, 1 dose, On Thu11/17/22 at 1335, STAT 1446 (Given - Provid er: Farida Amezcua RN) promethazine (Phenergan) injection 25 mg (COMPLETED) 25 mg, Intravenous, Once, 1 dose, On Thu11/17/22 at 1530, STAT 1542 (Given - Provid er: Glenny Venegas RN) sodium chloride 0.9 % bolus 1,000 mL (COMPLETED) 1,000 mL, Intravenous, Once, 1 dose, On Thu11/17/22 at 1335, Administer over 15 Minutes, Routine 1446 (New Bag - Prov ider: Farida Amezcua RN)1501 (Due: Stopped - Provider: Fairda Amezcua RN) PRN Medication Order 11/15/2022 11/16/2022 11/17/2022 oxyCODONE (Roxicodone) immediate release tablet 10 mg 10 mg, Oral, Every 4 hours PRN, 2 doses, Starting on Thu11/17/22 at 1639, Until Thu11/17/22 at 1906, Routine, severe pain 1700 (Given - Provid er: Glenny Venegas RN) documented in this encounter Additional Health Concerns Assessment Noted Time A fall risk assessment has been complete d for the patient 11/21/2020 2:30 PM EDT documented as of this encounter Care Teams Anodize Machine Operator Relationship Specialty Start Date End Date Elmo Escobar MD PCP - General 10/18/20 01/05/23 documented as of this encounter
--- OUTSIDE RECORDS SUMMARY | 2024-02-03 15:18 | XMS_ITS | Encounter Summary ---
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
--- OUTSIDE RECORDS SUMMARY | 2024-02-03 15:18 | XMS_ITS | Encounter Summary ---
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
--- OUTSIDE RECORDS SUMMARY | 2024-02-03 15:18 | XMS_ITS | Encounter Summary ---
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) to steady your nerves or to get [...] Sign Reading Time Taken Comments Blood Pressure 136/96 11/07/2022 1:07 PM EDT Pulse 84 11/07/2022 1:07 PM EDT Temperature 36.8 ??C (98.3 ??F) 11/07/2022 1:07 PM ED T Respiratory Rate 18 11/07/2022 1:07 PM EDT Oxygen Saturation 99% 11/07/2022 1:07 PM EDT Inhaled Oxygen Concentration - - Weight 108 kg (238 lb 1.6 oz) 11/07/2022 9:12 AM EDT Height 165.1 cm (5' 5 ) 11/07/2022 9:12 AM EDT Body Mass Index 39.62 11/07/2022 9:12 AM EDT documented in this encounter Discharge Instructions * Discharge Instructions* Quan Cooley APRN - 11/07/2022 1:01 PM EDT Take medications as prescribed. Follow clear liquid diet as directed for the next 48-72 hours, thenadvance slowly back to normal as tolerated. Follow up with your primary care provider to recheck today's symptoms. Return for any worsening of symptoms, development of new symptoms, or for any other concerns. * Attachments The following attachments cannot be sent through Care Everywhere. * Vomiting (Adult) (Samoan) * Pancreatitis, Chronic, Discharge Instructions for (Samoan) * Diet, Clear Liquid (Samoan) documented in this encounter Medications at Time [...] mg) by mouth every night. 30 tablet 07/24/2022 11/19/19 23 Ascorbic Acid (vitamin C) [...] 1 (one) time each day. 10/24/19 24 famotidine (Pepcid) 20 MG tablet Take 1 tablet (20 mg) by mouth 2 (two) times a day. 60 tablet 11/07/2022 11/12/19 23 ibuprofen 200 MG tablet Take 3 tablets (600 mg) by mouth every 6 (six) hours if needed for mild pain. 11/19/19 23 naloxone (Narcan) 4 mg/0.1 mL nasal spray 1. Give 1 spray in nostril for no/slow breathing or cannot wake after opioid use 2. Call 911 3. Repeat in other nostril if symptoms continue Call 911. Give 4 mg (1 spray) into one nostril. Repeat every 2-3 minutes as needed, alternating nostrils, until medical assistance arrives. 1 each 09/17/2022 11/12/19 23 ondansetron ODT (Zofran-ODT) 4 MG disintegrating tablet Take 1 tablet (4 mg) by mouth every 8 (eight) hours if needed for nausea or vomiting. 02/23/19 24 pregabalin (Lyrica) 100 MG capsule Take 1 capsule (100 mg) by mouth 3 (three) times a day. 10/28/19 24 prochlorperazine (Compazine) 10 MG tablet Take 1 tablet (10 mg) by mouth every 6 (six) hours if needed for nausea or vomiting. 11/15/19 23 promethazine (Phenergan) 25 MG tablet Take 1 tablet (25 mg) by mouth every 6 (six) hours if needed for nausea or vomiting for up to 12 doses. 12 tablet 10/26/2022 11/12/19 23 promethazine (Phenergan) 25 MG tablet Take 1 tablet (25 mg) by mouth every 6 (six) hours if needed for nausea or vomiting for up to 5 days. 20 tablet 11/07/2022 11/15/19 23 documented as of this encounter Miscellaneous Notes * ED Provider Notes - Quan Cooley, OTR DRIVER - 11/07/2022 9:06 AM EDT Images from the original note were not included. - HPI Chief Complaint Patient presents with Abdominal Pain Vomiting PIT Note Lila Mcnally is a 36 y.o. female with a PMH anxiety, depression, fibromyalgia, GERD, hypertension, and pancreatitis status post cholecystectomy and ERCP in 2011 who presents to ED with abdominal pain and vomiting. Pt c/o LUQ and epigastric abdominal pain, nausea and vomiting. Pt reports being seen at [facility] on 11/05 with the same pain. Pt states last confirmed pancreatitis was 3-5 months ago. Pt has a GI appointment scheduled on 12/18. Patient denies fever, chills, cough, chest pain, shortness of breath, and diarrhea. Date/Time: 11/07/2022/9:27 AM Scribe Attestation: This note was dictated to me, Alexandria Horton, acting as a scribe for Dr. Latricia King. Attending Attestation: The documentation was recorded by Alexandria Horton acting as scribe in my presence at the time of the encounter and accurately reflects the service I personally performed. 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 Physical Exam ED Triage Vitals [11/07/22 0912] Temp Heart Rate Resp BP 36.3 ??C (97.4 ??F) 100 18 (!) 142/97 SpO2 Temp src Heart Rate Source Patient [...] distress. Breath sounds: No stridor. Abdominal: General: Bowel sounds are normal. Palpations: Abdomen is soft. There is no mass. Tenderness: There is abdominal tenderness in the left upper quadrant. There is no guarding. Negative signs include Carlson's sign and McBurney's sign. Musculoskeletal: General: Normal range of motion. Cervical back: No rigidity. Skin: General: Skin is warm and dry. Capillary Refill: Capillary refill takes less than 2 seconds. Neurological: General: No focal deficit present. Mental Status: She is alert and oriented to person, place, and time. Psychiatric: Mood and Affect: Mood normal. Behavior: Behavior normal. ED Course & MDM Clinical Impressions as of 11/07/22 1440 Left upper quadrant abdominal pain Nausea and vomiting, unspecified vomiting type - Medical Decision Making This patient was evaluated in triage by Dr. King, care was followed by myself, Papito Cooley APRN. Lila Mcnally is a 36 yrs old female presents today for evaluation of recurrent abdominal pain to left upper quadrant, nausea and vomiting. Seen at [facility] on 11/05/22 for similar symptoms, has had multiple CT scans that have been negative with similar symptoms. Examination as above, patient is AAO x 3, she is uncomfortable in appearance, positive LUQ tenderness, no masses. She is hemodynamically stable. Based on her history and physical exam, my differential diagnosis included several life threateningconditions including acute exacerbation of chronic pancreatitis, acute pancreatitis, PUD, colitis. Low suspicion for bowel obstruction based on hx and exam. Ruling out the most morbid conditions drove my clinical assessment. In order to fully explore differential these tests and treatments were ordered. Orders Placed This Encounter CBC w/diff CMP Lipase Lactic acid, venous hCG qualitative Insert peripheral IV Medications morphine PF 4 mg (has no administration in time range) promethazine (Phenergan) injection 12.5 mg (has no administration in time range) lactated Ringer's infusion 500 mL (500 mL Intravenous New Bag 11/07/22 1000) ondansetron (Zofran) injection 4 mg (4 mg Intravenous Given 11/07/22 1001) morphine PF 4 mg (4 mg Intravenous Given 11/07/22 1000) Old records for this patient including previous ED visits, and imaging results were reviewed and found to be pertinent. Records review indicates that has been evaluated multiple times with similar symptoms, and negative CT scans and US studies. Consistent elevated lactic acid. It should be noted that her chronic conditions includes anxiety, depression, fibromyalgia, GERD, hypertension, and pancreatitis status post cholecystectomy and ERCP in 2011, which currently is not atgoal therapy. This complicates her clinical picture because it may be exacerbating symptoms, increases the amount and complexity of data to be reviewed, and increases the risk for morbidity. Additional history was provided by family Lab results were reviewed independently and can be interpreted as no leukocytosis, no anemia, no platelet abnormality, no renal dysfunction, no elevation of lipase, lactic acid is elevated at 3.5, IVfluids infusing, likely elevated secondary to vomiting and poor PO intake, HCG is negative. Patient reevaluated after treatments provided and condition was improved upon my reevaluation. Patient requests outpatient narcotic pain control medication for her symptoms. Discussed with patient that this medication is not indicated with her current symptoms due to risk of masking worsening symptoms. Patient given return precautions. Based on work up today patient did not require consult with any service Ultimately, this patient was Was discharged Home (Discharge) The primary encounter diagnosis was Left upper quadrant abdominal pain. A diagnosis of Nausea and vomiting, unspecified vomiting type was also pertinent to this visit. . Patient was counseled on the diagnoses.Discharge medications if any are listed below. Listed medications are thought be either curative for listed diagnoses or will help control ongoing symptoms. Patient is requested to follow up with her primary care provider, and GI as planned in order to obtain specialty care, further diagnostic testing, and discussion of further treatment options. Instructions on follow up as well as precautions to return to the ER provided verbally by the EDMD, as well as written in patients discharge education packet. Specific instructions provided are as follows: Discharge Instructions Take medications as prescribed. Follow clear liquid diet as directed for the next 48-72 hours, then advance slowly back to normal as tolerated. Follow up with your primary care provider to recheck today's symptoms. Return for any worsening of symptoms, development of new symptoms, or for any other concerns. Discharge References/Attachments Vomiting (Adult) (Samoan) Pancreatitis, Chronic, Discharge Instructions for (Samoan) Diet, Clear Liquid (Samoan) Disposition Discharge AVS Excuses (Printed 11/07/2022) AVS (Printed 11/07/2022) Follow-Ups: Call Elmo Escobar MD ED Prescriptions Medication Sig Dispense Start Date End Date Auth. Provider famotidine (Pepcid) 20 MG tablet Take 1 tablet (20 mg) by mouth 2 (two) times a day. 60 tablet 11/07/2022 12/07/2022 Quan Cooley APRN promethazine (Phenergan) 25 MG tablet Take 1 tablet (25 mg) by mouth every 6 (six) hours if needed for nausea or vomiting for up to 5 days. 20 tablet 11/07/2022 11/12/2022 Quan Cooley, ESTEBAN Discharge Instructions Take medications as prescribed. Follow clear liquid diet as directed for the next 48-72 hours, thenadvance slowly back to normal as tolerated. Follow up with your primary care provider to recheck today's symptoms. Return for any worsening of symptoms, development of new symptoms, or for any other concerns. Discharge References/Attachments Vomiting (Adult) (Samoan) Pancreatitis, Chronic, Discharge Instructions for (Samoan) Diet, Clear Liquid (Samoan) Disposition Discharge AVS Excuses (Printed 11/07/2022) AVS (Printed 11/07/2022) Follow-Ups: Call Elmo Escobar MD Sign Off Checklist Clinical Impression: Complete ED Disposition: Complete - Quan Cooley APRN 11/07/22 1440 Cosigned by Latricia King MD at 11/07/2022 4:24 PM EDT Associated attestation - Latricia King MD - 11/07/2022 4:24 PM EDT I attest to being involved in providing substantive time in patient care. * ED Triage Notes - Lizzie Haney RN - 11/07/2022 9:06 AM EDT Patient presents with abdominal pain, was seen a couple days ago. Hx of Pancreatitis. Also started to experience vomiting. States the pain increased that wasn't relieved with meds, so she came in to get further evaluation. documented in this encounter Plan of Treatment Not on file documented as of this encounter Procedures Procedure Name Priority Date/Time Associated Diagnosis Comments LACTATE, VENOUS STAT 11/07/2022 9:52 AM EDT CBC WITH AUTO DIFFERENTIAL STAT 11/07/2022 9:52 AM EDT TEST QUALITATIVE PLASMA STAT 11/07/2022 9:52 AM EDT LIPASE, PLASMA STAT 11/07/2022 9:52 AM EDT COMPREHENSIVE METABOLIC PANEL, PLASMA STAT 11/07/2022 9:52 AM EDT documented in this encounter Results * hCG qualitative (11/07/2022 9:52 AM EDT) Test Negative Negative 11/07/2022 10:19 AM EDT [facility] Blood Venous blood specimen / Unknown Venipuncture / Unknown 11/07/2022 9:52 AM EDT 11/07/2022 9:54 AM EDT Narrative [facility] - 11/07/2022 10:19 AM EDT Reference Range: Males and non- females: Negative. us Latricia King MD LAB BLOOD ORDERABLES Final R esult Performing Organization Address City/[facility] Co de Phone Number [facility] [address] [place] [address] * (ABNORMAL) Lactic acid, venous (11/07/2022 9:52 AM EDT) Lactate, Venous, Whole Blood 3.5(H) 0.5 - 2.2 mmol/L LAB HEMATOLOGY METHOD 11/07/2022 9:57 AM EDT [facility] Blood Venous blood specimen / Unknown Venipuncture / Unknown 11/07/2022 9:52 AM EDT 11/07/2022 9:54 AM EDT us Latricia King MD LAB BLOOD ORDERABLES Final R esult [facility] [address] [place] [address] * Lipase (11/07/2022 9:52 AM EDT) Lipase, Plasma 24 19 - 63 U/L 11/07/2022 10:19 AM EDT [facility] Blood Venous blood specimen / Unknown Venipuncture / Unknown 11/07/2022 9:52 AM EDT 11/07/2022 9:54 AM EDT us Latricia King MD LAB BLOOD ORDERABLES Final R esult [facility] [address] [place] [address] * (ABNORMAL) CMP (11/07/2022 9:52 AM EDT) Glucose, Plasma 91 74 - 99 mg/dL 11/07/2022 10:19 AM EDT [facility] BUN, Plasma 11 7 - 21 mg/dL 11/07/2022 10:19 AM EDT [facility] Creatinine, Plasma 0.67 0.60 - 1.10 mg/dL 11/07/2022 10:19 AM EDT [facility] BUN/Creatinine Ratio 16 11/07/2022 10:19 AM EDT [facility] Sodium, Plasma 139 136 - 145 mmol/L 11/07/2022 10:19 AM EDT [facility] Potassium, Plasma 3.5(L) 3.7 - 4.8 mmol/L 11/07/2022 10:19 AM EDT [facility] Chloride, Plasma 103 97 - 107 mmol/L 11/07/2022 10:19 AM EDT [facility] CO2, Plasma 22 22 - 29 mmol/L 11/07/2022 10:19 AM EDT [facility] Anion Gap 14 6 - 16 mmol/L 11/07/2022 10:19 AM EDT [facility] Total Calcium, Plasma 8.9 8.9 - 10.2 mg/dL 11/07/2022 10:19 AM EDT [facility] Total Protein 7.0 6.3 - 7.9 g/dL 11/07/2022 10:19 AM EDT [facility] Albumin, Plasma 4.4 3.5 - 5.2 g/dL 11/07/2022 10:19 AM EDT [facility] AST, Plasma 10 10 - 35 U/L 11/07/2022 10:19 AM EDT [facility] ALT, Plasma 15 10 - 35 U/L 11/07/2022 10:19 AM EDT [facility] Alkaline Phosphatase, Plasma 85 35 - 104 U/L 11/07/2022 10:19 AM EDT [facility] Total Bilirubin, Plasma <0.2(L) 0.2 - 1.1 mg/dL 11/07/2022 10:19 AM EDT [facility] eGFRcr 117.1 mL/min/1.7 3m*2 11/07/2022 10:19 AM EDT [facility] Comment:Reported eGFRcr in m L/min/1.73m2 is based the CKD-EPI 2020 equation that does not use a race coefficient. Blood Venous blood specimen / Unknown Venipuncture / Unknown 11/07/2022 9:52 AM EDT 11/07/2022 9:54 AM EDT us Latricia King MD LAB BLOOD ORDERABLES Final R esult Performing Organization Address City/State/[facility] Co de Phone Number [facility] [address] [place] [address] * (ABNORMAL) CBC w/diff (11/07/2022 9:52 AM EDT) WBC Count 7.20 3.70 - 10.30 10*3/uL LAB HEMATOLOGY METHOD 11/07/2022 9:57 AM EDT [facility] RBC Count 4.81 3.90 - 5.20 10*6/uL LAB HEMATOLOGY METHOD 11/07/2022 9:57 AM EDT [facility] HGB 12.5 11.2 - 15.7 g/dL LAB HEMATOLOGY METHOD 11/07/2022 9:57 AM EDT [facility] HCT 41.0 34.0 - 45.0 % LAB HEMATOLOGY METHOD 11/07/2022 9:57 AM EDT [facility] Platelet Count 232 155 - 369 10*3/uL LAB HEMATOLOGY METHOD 11/07/2022 9:57 AM EDT [facility] MCV 85 79 - 98 fL LAB HEMATOLOGY METHOD 11/07/2022 9:57 AM EDT [facility] MCH 26.0 26.0 - 32.0 pg LAB HEMATOLOGY METHOD 11/07/2022 9:57 AM EDT [facility] MCHC 30.5(L) 30.7 - 35.5 g/dL LAB HEMATOLOGY METHOD 11/07/2022 9:57 AM EDT [facility] RDW 16.3(H) 11.5 - 14.5 % LAB HEMATOLOGY METHOD 11/07/2022 9:57 AM EDT [facility] MPV 9.6 8.8 - 12.5 fL LAB HEMATOLOGY METHOD 11/07/2022 9:57 AM EDT [facility] nRBC 0.0 <=0.0 per 100 WBCs LAB HEMATOLOGY METHOD 11/07/2022 9:57 AM EDT [facility] Differential Type Automated LAB HEMATOLOGY METHOD 11/07/2022 9:57 AM EDT [facility] Neutrophils % 48.0 % LAB HEMATOLOGY METHOD 11/07/2022 9:57 AM EDT [facility] Lymphocytes % 44.0 % LAB HEMATOLOGY METHOD 11/07/2022 9:57 AM EDT [facility] Monocytes % 5.0 % LAB HEMATOLOGY METHOD 11/07/2022 9:57 AM EDT [facility] Eosinophils % 2.0 % LAB HEMATOLOGY METHOD 11/07/2022 9:57 AM EDT [facility] Basophils % 1.0 % LAB HEMATOLOGY METHOD 11/07/2022 9:57 AM EDT [facility] Immature Granulocytes % 0.0 % LAB HEMATOLOGY METHOD 11/07/2022 9:57 AM EDT [facility] Neutrophils Absolute 3.48 1.60 - 6.10 10*3/uL LAB HEMATOLOGY METHOD 11/07/2022 9:57 AM EDT [facility] Lymphocytes Absolute 3.13 1.20 - 3.90 10*3/uL LAB HEMATOLOGY METHOD 11/07/2022 9:57 AM EDT [facility] Monocytes Absolute 0.38 0.30 - 0.90 10*3/uL LAB HEMATOLOGY METHOD 11/07/2022 9:57 AM EDT [facility] Eosinophils Absolute 0.12 0.00 - 0.50 10*3/uL LAB HEMATOLOGY METHOD 11/07/2022 9:57 AM EDT [facility] Basophils Absolute 0.06 0.00 - 0.10 10*3/uL LAB HEMATOLOGY METHOD 11/07/2022 9:57 AM EDT [facility] Immature Granulocytes Absolute 0.03 0.00 - 0.06 10*3/uL LAB HEMATOLOGY METHOD 11/07/2022 9:57 AM EDT [facility] Blood Venous blood specimen / Unknown Venipuncture / Unknown 11/07/2022 9:52 AM EDT 11/07/2022 9:54 AM EDT Narrative [facility] - 11/07/2022 9:57 AM EDT Therapeutic decision making should be based on absolute values, rather than percentages. us Latricia King MD LAB BLOOD ORDERABLES Final R esult [facility] [address] [place] [address] documented in this encounter Visit Diagnoses Diagnosis Left upper quadrant abdominal pain- Primary Nausea and vomiting, unspecified vomiting type documented in this encounter Administered Medications Inactive Administered Medications - up to 3 most recent administrations Medication Order MAR Action Action Date Dose Rate Site famotidine PF (Pepcid) injection 20 mg 20 mg, Intravenous, Once, 1 dose, On Thu11/07/22 at 1100, STAT Given 11/07/2022 11:03 AM EDT 20 mg lactated Ringer's infusion 500 mL 500 mL, Intravenous, Once, 1 dose, On Thu11/07/22 at 0935, STAT New Bag 11/07/2022 10:00 AM EDT 500 mL morphine PF 4 mg 4 mg, Intravenous, Once, 1 dose, On Thu11/07/22 at 0935, STAT Given 11/07/2022 10:00 AM EDT 4 mg morphine PF 4 mg 4 mg, Intravenous, Once, 1 dose, On Thu11/07/22 at 1050, STAT Given 11/07/2022 10:52 AM EDT 4 mg ondansetron (Zofran) injection 4 mg 4 mg, Intravenous, Once, 1 dose, On Thu11/07/22 at 0935, STAT Given 11/07/2022 10:01 AM EDT 4 mg oxyCODONE (Roxicodone) immediate release tablet 10 mg 10 mg, Oral, Once, 1 dose, On Thu11/07/22 at 1300, STAT Given 11/07/2022 1:04 PM EDT 10 mg promethazine (Phenergan) injection 12.5 mg 12.5 mg, Intravenous, Once, 1 dose, On Thu11/07/22 at 1050, STAT Given 11/07/2022 10:52 AM EDT 12.5 mg documented in this encounter Active and Recently Administered Medications Times are shown in EDT. Scheduled Medication Order 11/05/2022 11/06/2022 11/07/2022 famotidine PF (Pepcid) injection 20 mg (COMPLETED) 20 mg, Intravenous, Once, 1 dose, On Thu11/07/22 at 1100, STAT 1103 (Given - Provid er: Kathy Arango RN) lactated Ringer's infusion 500 mL (COMPLETED) 500 mL, Intravenous, Once, 1 dose, On Thu11/07/22 at 0935, STAT 1000 (New Bag - Prov ider: Kathy Arango RN)1101 (Stopped - Provider: Kathy Arango RN) morphine PF 4 mg (COMPLETED) 4 mg, Intravenous, Once, 1 dose, On Thu11/07/22 at 0935, STAT 1000 (Given - Provid er: Kathy Arango RN) morphine PF 4 mg (COMPLETED) 4 mg, Intravenous, Once, 1 dose, On Thu11/07/22 at 1050, STAT 1052 (Given - Provid er: Kathy Arango RN) ondansetron (Zofran) injection 4 mg (COMPLETED) 4 mg, Intravenous, Once, 1 dose, On Thu11/07/22 at 0935, STAT 1001 (Given - Provid er: Kathy Arango RN) oxyCODONE (Roxicodone) immediate release tablet 10 mg (COMPLETED) 10 mg, Oral, Once, 1 dose, On Thu11/07/22 at 1300, STAT 1304 (Given - Provid er: Kathy Arango RN) promethazine (Phenergan) injection 12.5 mg (COMPLETED) 12.5 mg, Intravenous, Once, 1 dose, On Thu11/07/22 at 1050, STAT 1052 (Given - Provid er: Kathy Arango RN) documented in this encounter Additional Health Concerns Assessment Noted Time A fall risk assessment has been complete d for the patient 11/21/2020 2:30 PM EDT documented as of this encounter Care Teams Bridge Carpenter Relationship Specialty Start Date End Date Elmo Escobar MD PCP - General 10/18/20 01/05/23 documented as of this encounter
--- OUTSIDE RECORDS SUMMARY | 2024-02-03 15:19 | XMS_ITS | Encounter Summary ---
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
--- OUTSIDE RECORDS SUMMARY | 2024-02-03 15:19 | XMS_ITS | Encounter Summary ---
Author Organization Healthcare Address [address] [place] [address] Care Team Providers Care Electrical Prospecting Supervisor Name Role Phone Elmo Escobar MD Primary Care Provider [phone] Reason for Visit * Reason Comments Abdominal Pain Encounter Details Date Type Department Care Team ([facility] st Contact Info) Description 10/26/2022 6:52 PM EDT - 10/26/2022 11:50 PM EDT Emergency [facility] Emergency Department [address] [place] [address] Sharon Tang MD [address] [place] [address] Miguelito Joe MD [address] [place] [address] Epigastric pain (Primary Dx); Gastroenteritis Discharge Disposition: Home or Self Care Social [...] drink first t caleb in the morning (EYE-METALLURGICAL LABORATORY ASSISTANT) to steady your nerves or [...] Sign Reading Time Taken Comments Blood Pressure 141/102 10/26/2022 11:00 PM EDT Pulse 87 10/26/2022 11:00 PM EDT Temperature 36.7 ??C (98 ??F) 10/26/2022 11:00 PM EDT Respiratory Rate 22 10/26/2022 11:00 PM EDT Oxygen Saturation 97% 10/26/2022 11:00 PM EDT Inhaled Oxygen Concentration - - Weight 110 kg (241 lb 6.5 oz) 10/26/2022 7:46 PM EDT Height - - Body Mass Index 40.17 10/20/2022 11:01 AM EDT documented in this encounter Discharge Instructions * Discharge Instructions* Ana Bourgeois DO - 10/26/2022 10:50 PM EDT You have been seen and evaluated in the emergency department. Please return to the emergency department should your abdominal pain severely worsen. documented in this encounter Medications at Time of Discharge pantoprazole (Protonix) 40 MG EC tablet Take 1 tablet (40 mg) by mouth 1 (one) time each day. Do not crush, chew, or split. oxyCODONE-acetamino phen (Percocet) 5-325 MG tablet Take 1 tablet by mouth every 6 (six) hours if needed for severe pain (pian) for up to 3 days. 2 tablet 10/26/2022 10/30/19 23 acetaminophen (Tylenol) 500 MG tablet Take [...] 12 doses. 12 tablet 10/26/2022 11/12/19 23 documented as of this encounter Miscellaneous Notes * ED Provider Notes - Ana Bourgeois DO - 10/26/2022 6:46 PM EDT - HPI Chief Complaint Patient presents with Abdominal Pain Lila Mcnally is a 36-year-old female with past medical history of anxiety, depression, fibromyalgia,GERD, hypertension, obesity, and pancreatitis status post cholecystectomy and ERCP in 2011 presenting to the emergency department with severe abdominal pain, nausea, vomiting, and diarrhea since 11:00 p.m. yesterday evening. Patient describes her abdominal pain as severe and starting in her epigastrium with radiation to her left flank. She has tried Toradol, Robaxin, and Tylenol for her pain without success. Movement and vomiting makes the pain worse. Nothing specifically makes the pain better.She denies hematemesis or melena. Denies possibility of . Patient thinks this pain is consistent with pancreatitis. Says she has a headache from crying so much. Denies lightheadedness, dizziness, vision changes, chest pain, shortness of air. Denies recent contact with others who are sick. Denies recent fevers. Been unable to tolerate oral intake since the pain started. Of note, patient states she had a EGD this past March which revealed peptic ulcer disease and a duodenal ulcer. Shetakes Protonix twice daily. 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 by: Patient and parent Jo Coma Scale Score: 15 Patient History [...] blood instool and constipation. Genitourinary: Negative for dysuria, hematuria, pelvic pain and urgency. Musculoskeletal: Negative for arthralgias and back pain. Skin: Negative for color change and rash. Neurological: Negative for seizures and syncope. Psychiatric/Behavioral: The patient is nervous/anxious. All other systems reviewed and are negative. Physical Exam ED Triage Vitals [10/26/22 1851] Temp Heart Rate Resp BP 36.6 ??C (97.9 ??F) (!) 122 20 (!) 149/103 SpO2 Temp Source Heart Rate Source Patient Position 97 % Oral Monitor Sitting BP Location FiO2 (%) Right arm -- Physical Exam Vitals and nursing note reviewed. Constitutional: Appearance: She is well-developed. Comments: Mild acute distress, crying in pain. HENT: Head: Normocephalic and atraumatic. Mouth/Throat: Mouth: Mucous membranes are moist. Eyes: General: No scleral icterus. Extraocular Movements: Extraocular movements intact. Conjunctiva/sclera: Conjunctivae normal. Pupils: Pupils are equal, round, and reactive to light. Cardiovascular: Rate and Rhythm: Regular rhythm. Tachycardia present. Heart sounds: Normal heart sounds. No murmur heard. Pulmonary: Effort: Pulmonary effort is normal. No respiratory distress. Breath sounds: Normal breath sounds. No wheezing. Abdominal: General: Abdomen is protuberant. Bowel sounds are normal. There is no distension. Palpations: Abdomen is soft. Tenderness: There is abdominal tenderness in the epigastric area. There is no right CVA tenderness or left CVA tenderness. Negative signs include Carlson's sign and McBurney's sign. Comments: Tender Nest of epigastrium without peritonitis or pain out of proportion to exam. Musculoskeletal: General: No swelling. Cervical back: Neck supple. Skin: General: Skin is warm and dry. Capillary Refill: Capillary refill takes less than 2 seconds. Neurological: General: No focal deficit present. Mental Status: She is alert and oriented to person, place, and time. Psychiatric: Mood and Affect: Mood normal. ED Course & MDM Clinical Impressions as of 10/27/22 0350 Epigastric pain Gastroenteritis <OPIOIDSMARTFORM> Medical Decision Making In summary, this 36 y.o. female presents to the emergency department with severe abdominal pain, nausea, vomiting, diarrhea of less than 1 day duration. On initial evaluation patient is visibly uncomfortable and upset, but afebrile, and hemodynamically stable. Differential diagnosis includes but isnot limited to pancreatitis, gastroenteritis, pyelonephritis, nephrolithiasis, anxiety, , peptic ulcer disease, duodenal ulcer. Comorbidities of current condition include history of ERCP induced pancreatitis, gastroesophageal reflux disease, and patient reported history of duodenal ulcer. Based on these concerns, the following were ordered: Orders Placed This Encounter US Abdomen Focused Region Pancreas, Liver CBC and Differential CMP Lactate, venous Lipase Test Qualitative Plasma Urinalysis with reflex microscopic Patient received lactated Ringer's fluid bolus, potassium chloride, IV morphine, IV Phenergan, and oral oxycodone for treatment. Labs personally reviewed demonstrate bland urinalysis without evidence of infection, normal lipase,negative test. CMP reveals euglycemia, no evidence of JYOTSNA, mild hyponatremia, mild hypokalemia, slightly elevated anion gap of 18, and no transaminitis. Ultrasound of right upper quadrant is negative for surrounding inflammatory changes of the pancreas, liver is normal echogenicity without focal lesion, and common bile duct measures 3.3 mm. Radiologyreads in agreement. On reassessment patient's pain and nausea seem to be much improved. I explained to the patient thatconcerns were for acute pancreatitis versus nephrolithiasis. Ultrasound imaging and laboratory studies are not indicative of acute pancreatitis, and urinalysis does not support diagnosis of nephrolithiasis or pyelonephritis. Patient's pain and symptoms were relieved with Phenergan and by mouth painmedication. Most likely diagnosis is gastroenteritis and should be treated with supportive care. Patient's prescriptions were reviewed and prescription provided for 2 doses of oxycodone along withPhenergan. I discussed discharge and oral rehydration strategies with the patient. Patient agrees with this plan and is comfortable returning home. Patient has no further questions. ED Prescriptions None Sign Off Checklist Clinical Impression: Complete ED Disposition: Complete - Ana Bourgeois DO Resident 10/27/22 0400 Cosigned by Sharon Tang MD at 10/27/2022 8:39 PM EDT Associated attestation - Sharon Tang MD - 10/27/2022 8:39 PM EDT I saw and evaluated the patient with the resident/fellow. I discussed the case with the resident/fellow and agree with the findings and plan as documented. * ED Triage Notes - Emeka Tellez RN - 10/26/2022 6:46 PM EDT Abdominal pain, N/V starting last night. documented in this encounter Plan of Treatment Not on file documented as of this encounter Procedures Procedure Name Priority Date/Time Associated Diagnosis Comments US ABDOMEN FOCUSED REGION STAT 10/26/2022 10:17 PM EDT URINALYSIS WITH REFLEX MICROSCOPIC STAT 10/26/2022 9:14 PM EDT CBC WITH AUTO DIFFERENTIAL STAT 10/26/2022 7:50 PM EDT TEST QUALITATIVE PLASMA STAT 10/26/2022 7:50 PM EDT LIPASE, PLASMA STAT 10/26/2022 7:50 PM EDT COMPREHENSIVE METABOLIC PANEL, PLASMA STAT 10/26/2022 7:50 PM EDT documented in this encounter Results * US Abdomen Focused Region Pancreas, Liver (10/26/2022 10:17 PM EDT) Anatomical Region Laterality Modality Abdomen Ultrasound Impressions 10/26/2022 10:24 PM EDT Negative right upper quadrant abdominal ultrasound. CRITICAL RESULT: ?? No. COMMUNICATION: Per this written report. Drafted by Marce Bellamy MD on 10/26/2022 10:21 PM Final report signed by Marce Bellamy MD on 10/26/2022 10:24 PM Narrative 10/26/2022 10:24 PM EDT CLINICAL INDICATION: post cholecystectomy, hx of pancreatitis, severe abdominal pain TECHNIQUE: Multiplanar grayscale ultrasound of the right upper quadrant of the abdomen. COMPARISON: CT 10/18/2022 FINDINGS: Visualized Pancreas: Partial imaging of the pancreas is unremarkable. Liver: Normal echogenicity without focal lesion identified. Gallbladder: Gallbladder surgically absent. Bile Ducts: CBD measures 3.3 mm. No intra-hepatic biliary ductal dilatation. No extra-hepatic biliary ductal dilatation. Portal vein is patent with antegrade flow. Procedure Note Marce Bellamy MD - 10/26/2022 CLINICAL INDICATION: post cholecystectomy, hx of pancreatitis, severe abdominal pain TECHNIQUE: Multiplanar grayscale ultrasound of the right upper quadrant of theabdomen. COMPARISON: CT 10/18/2022 FINDINGS: Visualized Pancreas: Partial imaging of the pancreas is unremarkable. Liver: Normal echogenicity without focal lesion identified. Gallbladder: Gallbladder surgically absent. Bile Ducts: CBD measures 3.3 mm. No intra-hepatic biliary ductaldilatation. No extra-hepatic biliary ductal dilatation. Portal vein is patent with antegrade flow. IMPRESSION: Negative right upper quadrant abdominal ultrasound. CRITICAL RESULT: No. COMMUNICATION: Per this written report. Drafted by Marce Bellamy MD on 10/26/2022 10:21 PM Final report signed by Marce Bellamy MD on 10/26/2022 10:[address] [facility] US PROCEDURES Final Result * Urinalysis with reflex microscopic (10/26/2022 9:14 PM EDT) Color, Urine Yellow LAB URINALYSIS - AUTOMATED METHOD 10/26/2022 9:43 PM EDT [email or web address] Clarity, Urine Clear LAB URINALYSIS - AUTOMATED METHOD 10/26/2022 9:43 PM EDT [facility] Spec [place], Urine 1.011 <=1.005 to >=1.030 LAB URINALYSIS - AUTOMATED METHOD 10/26/2022 9:43 PM EDT [facility] pH, Urine 6.0 4.5 to 8 LAB URINALYSIS - AUTOMATED METHOD 10/26/2022 9:43 PM EDT [facility] Protein, Urine Negative Negative mg/dL LAB URINALYSIS - AUTOMATED METHOD 10/26/2022 9:43 PM EDT [facility] Glucose, Urine Negative Negative mg/dL LAB URINALYSIS - AUTOMATED METHOD 10/26/2022 9:43 PM EDT [facility] Ketones, Urine Negative Negative mg/dL LAB URINALYSIS - AUTOMATED METHOD 10/26/2022 9:43 PM EDT [facility] Blood, Urine Negative Negative LAB URINALYSIS - AUTOMATED METHOD 10/26/2022 9:43 PM EDT [facility] Bilirubin, Urine Negative Negative LAB URINALYSIS - AUTOMATED METHOD 10/26/2022 9:43 PM EDT [facility] Urobilinogen, Urine 0.2 0.2 to 1.0 mg/dL LAB URINALYSIS - AUTOMATED METHOD 10/26/2022 9:43 PM EDT [facility] Leukocytes, Urine Negative Negative LAB URINALYSIS - AUTOMATED METHOD 10/26/2022 9:43 PM EDT [facility] Nitrite, Urine Negative Negative LAB URINALYSIS - AUTOMATED METHOD 10/26/2022 9:43 PM EDT [facility] Urine Urine specimen obtained by clean catch procedure / Unknown Non-blood Collection / Unknown 10/26/2022 9:14 PM EDT 10/26/2022 9:41 PM EDT Sharon Tang MD LAB URINE ORDERABLES Final Resu lt [facility] [address] [place] [address] * Test Qualitative Plasma (10/26/2022 7:50 PM EDT) Test Negative Negative 10/26/2022 8:16 PM EDT [facility] Blood Venous blood specimen / Unknown Venipuncture / Unknown 10/26/2022 7:50 PM EDT 10/26/2022 7:54 PM EDT Narrative [facility] - 10/26/2022 8:16 PM EDT Reference Range: Males and non- females: Negative. us Sharon Tang MD LAB BLOOD ORDERABLES Final Resu lt Performing Organization Address City/[facility]/ZIP Co de Phone Number [facility] [address] [place] [address] * Lipase (10/26/2022 7:50 PM EDT) Lipase, Plasma 21 19 - 63 U/L 10/26/2022 8:16 PM EDT [facility] Blood Venous blood specimen / Unknown Venipuncture / Unknown 10/26/2022 7:50 PM EDT 10/26/2022 7:54 PM EDT Sharon Tang MD LAB BLOOD ORDERABLES Final Resu lt Performing Organization Address [facility] de Phone Number [facility] [address] [place] [address] * (ABNORMAL) CMP (10/26/2022 7:50 PM EDT) Glucose, Plasma 117(H) 74 - 99 mg/dL 10/26/2022 8:16 PM EDT [facility] BUN, Plasma 8 7 - 21 mg/dL 10/26/2022 8:16 PM EDT [facility] Creatinine, Plasma 0.64 0.60 - 1.10 mg/dL 10/26/2022 8:16 PM EDT [facility] BUN/Creatinine Ratio 13 10/26/2022 8:16 PM EDT [facility] Sodium, Plasma 135(L) 136 - 145 mmol/L 10/26/2022 8:16 PM EDT [facility] Potassium, Plasma 3.3(L) 3.7 - 4.8 mmol/L 10/26/2022 8:16 PM EDT [facility] Chloride, Plasma 99 97 - 107 mmol/L 10/26/2022 8:16 PM EDT [facility] CO2, Plasma 18(L) 22 - 29 mmol/L 10/26/2022 8:16 PM EDT [facility] Anion Gap 18(H) 6 - 16 mmol/L 10/26/2022 8:16 PM EDT [facility] Total Calcium, Plasma 9.4 8.9 - 10.2 mg/dL 10/26/2022 8:16 PM EDT [facility] Total Protein 7.5 6.3 - 7.9 g/dL 10/26/2022 8:16 PM EDT [facility] Albumin, Plasma 4.6 3.5 - 5.2 g/dL 10/26/2022 8:16 PM EDT [facility] AST, Plasma 18 10 - 35 U/L 10/26/2022 8:16 PM EDT [facility] Comment:Hemolyzed, result ma y be falsely increased. ALT, Plasma 19 10 - 35 U/L 10/26/2022 8:16 PM EDT [facility] Alkaline Phosphatase, Plasma 93 35 - 104 U/L 10/26/2022 8:16 PM EDT [facility] Total Bilirubin, Plasma 0.3 0.2 - 1.1 mg/dL 10/26/2022 8:16 PM EDT [facility] eGFRcr 118.4 mL/min/1.7 3m*2 10/26/2022 8:16 PM EDT [facility] Comment:Reported eGFRcr in m L/min/1.73m2 is based the CKD-EPI 2020 equation that does not use a race coefficient. Blood Venous blood specimen / Unknown Venipuncture / Unknown 10/26/2022 7:50 PM EDT 10/26/2022 7:54 PM EDT us Sharon Tang MD LAB BLOOD ORDERABLES Final Resu lt [facility] [address] [place] [address] * (ABNORMAL) CBC and Differential (10/26/2022 7:50 PM EDT) WBC Count 7.32 3.70 - 10.30 10*3/uL LAB HEMATOLOGY METHOD 10/26/2022 7:56 PM EDT [facility] RBC Count 4.76 3.90 - 5.20 10*6/uL LAB HEMATOLOGY METHOD 10/26/2022 7:56 PM EDT [facility] HGB 12.6 11.2 - 15.7 g/dL LAB HEMATOLOGY METHOD 10/26/2022 7:56 PM EDT [facility] HCT 38.5 34.0 - 45.0 % LAB HEMATOLOGY METHOD 10/26/2022 7:56 PM EDT [facility] Platelet Count 274 155 - 369 10*3/uL LAB HEMATOLOGY METHOD 10/26/2022 7:56 PM EDT [facility] MCV 81 79 - 98 fL LAB HEMATOLOGY METHOD 10/26/2022 7:56 PM EDT [facility] MCH 26.5 26.0 - 32.0 pg LAB HEMATOLOGY METHOD 10/26/2022 7:56 PM EDT [facility] MCHC 32.7 30.7 - 35.5 g/dL LAB HEMATOLOGY METHOD 10/26/2022 7:56 PM EDT [facility] RDW 15.8(H) 11.5 - 14.5 % LAB HEMATOLOGY METHOD 10/26/2022 7:56 PM EDT [facility] MPV 9.6 8.8 - 12.5 fL LAB HEMATOLOGY METHOD 10/26/2022 7:56 PM EDT [facility] nRBC 0.0 <=0.0 per 100 WBCs LAB HEMATOLOGY METHOD 10/26/2022 7:56 PM EDT [facility] Differential Type Automated LAB HEMATOLOGY METHOD 10/26/2022 7:56 PM EDT [facility] Neutrophils % 63.0 % LAB HEMATOLOGY METHOD 10/26/2022 7:56 PM EDT [facility] Lymphocytes % 30.0 % LAB HEMATOLOGY METHOD 10/26/2022 7:56 PM EDT [facility] Monocytes % 5.0 % LAB HEMATOLOGY METHOD 10/26/2022 7:56 PM EDT [facility] Eosinophils % 1.0 % LAB HEMATOLOGY METHOD 10/26/2022 7:56 PM EDT [facility] Basophils % 1.0 % LAB HEMATOLOGY METHOD 10/26/2022 7:56 PM EDT [facility] Immature Granulocytes % 0.0 % LAB HEMATOLOGY METHOD 10/26/2022 7:56 PM EDT [facility] Neutrophils Absolute 4.70 1.60 - 6.10 10*3/uL LAB HEMATOLOGY METHOD 10/26/2022 7:56 PM EDT [facility] Lymphocytes Absolute 2.18 1.20 - 3.90 10*3/uL LAB HEMATOLOGY METHOD 10/26/2022 7:56 PM EDT [facility] Monocytes Absolute 0.33 0.30 - 0.90 10*3/uL LAB HEMATOLOGY METHOD 10/26/2022 7:56 PM EDT [facility] Eosinophils Absolute 0.04 0.00 - 0.50 10*3/uL LAB HEMATOLOGY METHOD 10/26/2022 7:56 PM EDT [facility] Basophils Absolute 0.04 0.00 - 0.10 10*3/uL LAB HEMATOLOGY METHOD 10/26/2022 7:56 PM EDT [facility] Immature Granulocytes Absolute 0.03 0.00 - 0.06 10*3/uL LAB HEMATOLOGY METHOD 10/26/2022 7:56 PM EDT [facility] Blood Venous blood specimen / Unknown Venipuncture / Unknown 10/26/2022 7:50 PM EDT 10/26/2022 7:54 PM EDT Narrative [facility] - 10/26/2022 7:56 PM EDT Therapeutic decision making should be based on absolute values, rather than percentages. us Sharon Tang MD LAB BLOOD ORDERABLES Final Resu lt [facility] [address] [place] [id number] documented in this encounter Visit Diagnoses Diagnosis Epigastric pain- Primary Abdominal pain, epigastric Gastroenteritis Other and unspecified noninfectious gastroenteritis and colitis documented in this encounter Administered Medications Inactive Administered Medications - up to 3 most recent administrations Medication Order MAR Action Action Date Dose Rate Site lactated Ringer's infusion 1,000 mL 1,000 mL, Intravenous, Once, 1 dose, On 10/26/22 at 2110, STAT New Bag 10/26/2022 9:14 PM EDT 1,000 mL morphine PF 4 mg 4 mg, Intravenous, Once, 1 dose, On 10/26/22 at 2110, STAT Given 10/26/2022 9:14 PM EDT 4 mg ondansetron (Zofran) injection 4 mg 4 mg, Intravenous, Every 6 hours PRN, Starting on 10/26/22 at 1947, Until 10/27/22 at 0150, Routine, nausea, vomiting Given 10/26/2022 7:55 PM EDT 4 mg oxyCODONE (Roxicodone) immediate release tablet 5 mg 5 mg, Oral, Once, 1 dose, On 10/26/22 at 2245, STAT Given 10/26/2022 10:47 PM EDT 5 mg potassium chloride IVPB 10 mEq 10 mEq, Intravenous, Every 1 hour, 2 doses, First dose on 10/26/22 at 2110, Last dose on 10/26/22 at 2210, RoutineIndications:Hypokale alyssia New Bag 10/26/2022 10:44 PM EDT 10 mEq 100 mL/hr New Bag 10/26/2022 9:55 PM EDT 10 mEq 100 mL/hr promethazine (Phenergan) injection 25 mg 25 mg, Intravenous, Once, 1 dose, On 10/26/22 at 2110, STAT Given 10/26/2022 9:13 PM EDT 25 mg documented in this encounter Active and Recently Administered Medications Times are shown in EDT. Scheduled Medication Order 10/24/2022 10/25/2022 10/26/2022 lactated Ringer's infusion 1,000 mL (COMPLETED) 1,000 mL, Intravenous, Once, 1 dose, On 10/26/22 at 2110, STAT 2113 (New Bag - Prov ider: Anabel Gamez RN)2325 (Stopped - Provider: Anabel Gamez RN) morphine PF 4 mg (COMPLETED) 4 mg, Intravenous, Once, 1 dose, On 10/26/22 at 2110, STAT 2113 (Given - Provid er: Anabel Gamez RN) oxyCODONE (Roxicodone) immediate release tablet 5 mg (COMPLETED) 5 mg, Oral, Once, 1 dose, On 10/26/22 at 2245, STAT 2246 (Given - Provid er: Anabel Gamez RN) potassium chloride IVPB 10 mEq (COMPLETED) 10 mEq, Intravenous, Every 1 hour, 2 doses, First dose on 10/26/22 at 2110, Last dose on 10/26/22 at 2210, Routine 2154 (New Bag - Prov ider: Brenda Espinoza RN)224 (Stopped - Provider: Anabel Gamez RN)224 (New Bag - Provider: Anabel Gamez RN)232 (Stopped - Provider: Anabel Gamez RN) promethazine (Phenergan) injection 25 mg (COMPLETED) 25 mg, Intravenous, Once, 1 dose, On 10/26/22 at 2110, STAT 2112 (Given - Provid er: Anabel Gamez RN) PRN Medication Order 10/24/2022 10/25/2022 10/26/2022 ondansetron (Zofran) injection 4 mg 4 mg, Intravenous, Every 6 hours PRN, Starting on 10/26/22 at 1947, Until 10/27/22 at 0150, Routine, nausea, vomiting 1955 (Given - Provid er: Anabel Gamez, CHANDNI) documented in this encounter Additional Health Concerns Assessment Noted Time A fall risk assessment has been complete d for the patient 11/21/2020 2:30 PM EDT documented as of this encounter Care Teams Electrical Prospecting Supervisor Relationship Specialty Start Date End Date Elmo Escobar MD PCP - General 10/18/20 01/05/23 documented as of this encounter
--- OUTSIDE RECORDS SUMMARY | 2024-02-03 15:19 | XMS_ITS | Encounter Summary ---
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
--- OUTSIDE RECORDS SUMMARY | 2024-02-03 15:19 | XMS_ITS | Encounter Summary ---
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
--- OUTSIDE RECORDS SUMMARY | 2024-02-03 15:19 | XMS_ITS | Encounter Summary ---
Author Organization Healthcare Address [address] [place] [address] Care Team Providers Care Recycling Specialist Name Role Phone Elmo Escobar MD Primary Care Provider [phone] Reason for Visit * Reason Comments Abdominal Pain Encounter Details Date Type Department Care Team (Late st Contact Info) Description 10/16/2022 10:13 PM EDT - 10/17/2022 1:35 AM EDT Emergency [facility] Emergency [facility] [address] [place] [address] Stephanie Briscoe MD [address] [place] [address] George Martinez MD [address] [place] [address] Abdominal pain, generalized (Primary Dx) [...] drink first t caleb in the morning (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) to steady your nerves or to [...] Sign Reading Time Taken Comments Blood Pressure 137/90 10/17/2022 12:37 AM EDT Pulse 96 10/17/2022 12:37 AM EDT Temperature 36.8 ??C (98.2 ??F) 10/17/2022 12:37 AM E DT Respiratory Rate 14 10/17/2022 12:37 AM EDT Oxygen Saturation 97% 10/17/2022 12:37 AM EDT Inhaled Oxygen Concentration - - Weight 110 kg (243 lb 6.2 oz) 10/16/2022 10:11 P M EDT Height 165.1 cm (5' 5 ) 10/16/2022 10:11 PM EDT Body Mass Index 40.5 10/16/2022 10:11 PM EDT documented in this encounter Discharge Instructions * Discharge Instructions* Lester Fitzpatrick PA - 10/17/2022 12:18 AM EDT Drink plenty of fluids, advance diet as able Take home Phenergan as needed for nausea vomiting Keep appointment with GI as scheduled for further management documented in this encounter Medications at Time of Discharge pantoprazole (Protonix) 40 MG EC tablet Take 1 tablet (40 mg) by mouth 1 (one) time each day. Do not crush, chew, or split. lactulose (Chronulac) 10 GM/15ML solution Take 30 mL (20 g) by mouth 1 (one) time each day. 900 mL 09/21/2022 10/22/19 23 metoclopramide (Reglan) 10 MG tablet Take 1 tablet (10 mg) by mouth 4 (four) times a day for 10 days. 40 tablet 10/15/2022 10/26/19 23 acetaminophen (Tylenol) 500 MG tablet Take [...] needed for nausea or vomiting. 30 tablet 10/10/2022 10/27/19 23 documented as of this encounter Miscellaneous Notes * ED Provider Notes - Lester Fitzpatrick PA - 10/16/2022 9:36 PM EDT Images from the original note were not included. - HPI Chief Complaint Patient presents with Abdominal Pain Ms. Mcnally is a 36-year-old female who presents to the ED due to abdominal pain. Past medical history significant for pancreatitis. She was seen and evaluated yesterday for the same condition. Yesterday her lipase was 99. She states that she has been vomiting all day and has not been able to tolerate by mouth. She was well known to our service, comes frequently to the ED. denies fevers dysuria. She states that her abdomen hurts towards the middle and radiates to her back. She also states that she may have a peptic ulcer. She states that she was being seen by GI and is taking Carafate, omeprazole, other variety of medications. She was requesting Dilaudid as well as Phenergan and states this is the only thing that helps her pain. Jo Coma Scale Score: 15 Patient History [...] Positive for abdominal pain, nausea and vomiting. Physical Exam ED Triage Vitals [10/16/222210] Temp Heart Rate Resp BP 37.2 ??C (98.9 ??F) 115 18 (!) 147/93 SpO2 Temp Source Heart Rate Source Patient Position 95 % Oral Monitor Sitting BP Location FiO2 [...] General: Abdomen is flat. Palpations: Abdomen is rigid. Tenderness: There is generalized abdominal tenderness. Neurological: Mental Status: She is alert and oriented to person, place, and time. Motor: No weakness. Psychiatric: Mood and Affect: Mood normal. Behavior: Behavior normal. ED Course & MDM ED Course as of 10/17/22411 [facility] Oct 16, [id number] Lipase: 61 [CB] ED Course User Index [CB] Lester Fitzpatrick PA Clinical Impressions as of 10/17/22411 Abdominal pain, generalized Medical Decision Making Lila Mcnally is a 36 yrs old female presents today for Patient presents with: Abdominal Pain . In order to fully explore differential these tests and treatments were ordered. Orders Placed This Encounter CBC CMP Magnesium Lipase Lactic acid, venous hCG qualitative Urinalysis with reflex microscopic Medications lactated Ringer's infusion 1,000 mL (0 mL Intravenous Stopped 10/17/22 0036) HYDROmorphone (Dilaudid) injection 0.5 mg (0.5 mg Intravenous Given 10/16/222309) promethazine (Phenergan) injection 25 mg (25 mg Intravenous Given 10/16/221) oxyCODONE (Roxicodone) immediate release tablet 5 mg (5 mg Oral Given 10/17/22 0132) Differential diagnosis includes pancreatitis, peptic ulcer, malingering. Given the frequency of herCT scans which have been normal, currently it was not indicated to get a CT scan and would likely not change our management. Labwork was obtained as above. Lipase was found to be decreased to 61 today. Labwork was otherwise grossly normal. Had mild hypokalemia and other labwork was grossly normal. She was given a 1 time dose of 0.5 mg of Dilaudid as well as Phenergan. Discussed giving droperidol,however she states that she has bad reactions to it. She was given fluids orally which she tolerated. Did not vomit during her stay. She was deemed safe for discharge home. She became tearful and asked for more pain medication. However, given that there were no acute findings on her labwork and there was no clear etiology we did not feel it was indicated. She was given a 1 time dose of oxycodone.Discussed the possibility of evaluation by pain management, states that she had been seen by Dr. Whitmore in the past and they had discussed placing a pain pump. Encouraged to follow-up with him again for re- evaluation of pain pump. She states she will likely return tomorrow. Chronic conditions complicate care include pancreatitis which appears to be controlled. Social factors complicate care include frequent opioid use. ED Prescriptions None Discharge Instructions Drink plenty of fluids, advance diet as able Take home Phenergan as needed for nausea vomiting Keep appointment with GI as scheduled for further management Disposition Discharge Patient discharged from ED all VSS on room air. Pt verbalized understanding of all DC instructions and ambulated out of ED with steady unassisted gait. AVS (Printed 10/17/2022) Sign Off Checklist Clinical Impression: Complete ED Disposition: Complete - Lester Fitzpatrick PA 10/17/22 0412 Cosigned by George Martinez MD at 10/21/2022 8:11 AM EDT Associated attestation - George Martinez MD - 10/21/2022 8:11 AM EDT The patient was seen only by Advanced Practice Provider (AJAY), and care was reviewed with me. * ED Triage Notes - Cici Ramos, RN - 10/16/2022 9:36 PM EDT Pt presents to ED with RLQ pain that radiates to back. Pt states leaning forwards makes it better and leaning backward makes it worse. Pt states pt was here yesterday but it progressively got worse. documented in this encounter Plan of Treatment Not on file documented as of this encounter Procedures Procedure Name Priority Date/Time Associated Diagnosis Comments URINALYSIS WITH REFLEX MICROSCOPIC STAT 10/16/2022 11:15 PM EDT LACTATE, VENOUS STAT 10/16/2022 11:13 PM EDT CBC W/O DIFFERENTIAL STAT 10/16/2022 11:13 PM EDT TEST QUALITATIVE PLASMA STAT 10/16/2022 11:13 PM EDT MAGNESIUM, PLASMA STAT 10/16/2022 11: 13 PM EDT LIPASE, PLASMA STAT 10/16/2022 11:13 PM EDT COMPREHENSIVE METABOLIC PANEL, PLASMA STAT 10/16/2022 11:13 PM EDT documented in this encounter Results * Urinalysis with reflex microscopic (10/16/2022 11:15 PM EDT) Color, Urine Yellow LAB URINALYSIS - AUTOMATED METHOD 10/16/2022 11:37 PM EDT [facility] Clarity, Urine Clear LAB URINALYSIS - AUTOMATED METHOD 10/16/2022 11:37 PM EDT [facility] Spec [place], Urine <=1.005 <=1.005 to >=1.030 LAB URINALYSIS - AUTOMATED METHOD 10/16/2022 11:37 PM EDT [facility] pH, Urine 6.5 4.5 to 8 LAB URINALYSIS - AUTOMATED METHOD 10/16/2022 11:37 PM EDT [facility] Protein, Urine Negative Negative mg/dL LAB URINALYSIS - AUTOMATED METHOD 10/16/2022 11:37 PM EDT [facility] Glucose, Urine Negative Negative mg/dL LAB URINALYSIS - AUTOMATED METHOD 10/16/2022 11:37 PM EDT [facility] Ketones, Urine Negative Negative mg/dL LAB URINALYSIS - AUTOMATED METHOD 10/16/2022 11:37 PM EDT [facility] Blood, Urine Negative Negative LAB URINALYSIS - AUTOMATED METHOD 10/16/2022 11:37 PM EDT [facility] Bilirubin, Urine Negative Negative LAB URINALYSIS - AUTOMATED METHOD 10/16/2022 11:37 PM EDT [facility] Urobilinogen, Urine 0.2 0.2 to 1.0 mg/dL LAB URINALYSIS - AUTOMATED METHOD 10/16/2022 11:37 PM EDT [facility] Leukocytes, Urine Negative Negative LAB URINALYSIS - AUTOMATED METHOD 10/16/2022 11:37 PM EDT [facility] Nitrite, Urine Negative Negative LAB URINALYSIS - AUTOMATED METHOD 10/16/2022 11:37 PM EDT [facility] Urine Urine specimen obtained by clean catch procedure / Unknown Non-blood Collection / Unknown 10/16/2022 11:15 PM EDT 10/16/2022 11:18 PM EDT Lester NAJERA LAB URINE ORDERABLES Fi nal Result [facility] [address] [place] [address] * hCG qualitative (10/16/2022 11:13 PM EDT) Test Negative Negative 10/16/2022 11:50 PM EDT [facility] Blood Venous blood specimen / Unknown Venipuncture / Unknown 10/16/2022 11:13 PM EDT 10/16/2022 11:18 PM EDT Narrative [facility] - 10/16/2022 11:50 PM EDT Reference Range: Males and non- females: Negative. us Lester NAJERA LAB BLOOD ORDERABLES Fi nal Result Performing Organization Address City/[facility]/ZIP Co de Phone Number [facility] [address] [place] [address] * Lactic acid, venous (10/16/2022 11:13 PM EDT) Lactate, Venous, Whole Blood 2.0 0.5 - 2.2 mmol/L LAB HEMATOLOGY METHOD 10/16/2022 11:22 PM EDT [facility] Blood Venous blood specimen / Unknown Venipuncture / Unknown 10/16/2022 11:13 PM EDT 10/16/2022 11:18 PM EDT Lester NAJERA LAB BLOOD ORDERABLES Fi nal Result Performing Organization Address [facility] Co de Phone Number [facility] [address] [place] [address] * Lipase (10/16/2022 11:13 PM EDT) Lipase, Plasma 61 19 - 63 U/L 10/16/2022 11:50 PM EDT [facility] Blood Venous blood specimen / Unknown Venipuncture / Unknown 10/16/2022 11:13 PM EDT 10/16/2022 11:18 PM EDT Lester NAJERA LAB BLOOD ORDERABLES Fi nal Result Performing Organization Address City/[facility]/ZIP Co de Phone Number [facility] [address] [place] [address] * Magnesium (10/16/2022 11:13 PM EDT) Magnesium, Plasma 2.1 1.9 - 2.4 mg/dL 10/16/2022 11:50 PM EDT [facility] Blood Venous blood specimen / Unknown Venipuncture / Unknown 10/16/2022 11:13 PM EDT 10/16/2022 11:18 PM EDT Lester NAJERA LAB BLOOD ORDERABLES Fi nal Result Performing Organization Address City/[facility]/ZIP Co de Phone Number [facility] [address] [place] [address] * (ABNORMAL) CMP (10/16/2022 11:13 PM EDT) Glucose, Plasma 104(H) 74 - 99 mg/dL 10/16/2022 11:50 PM EDT [facility] BUN, Plasma 8 7 - 21 mg/dL 10/16/2022 11:50 PM EDT [facility] Creatinine, Plasma 0.60 0.60 - 1.10 mg/dL 10/16/2022 11:50 PM EDT [facility] BUN/Creatinine Ratio 13 10/16/2022 11:50 PM EDT [facility] Sodium, Plasma 141 136 - 145 mmol/L 10/16/2022 11:50 PM EDT [facility] Potassium, Plasma 3.5(L) 3.7 - 4.8 mmol/L 10/16/2022 11:50 PM EDT [facility] Chloride, Plasma 110(H) 97 - 107 mmol/L 10/16/2022 11:50 PM EDT [facility] CO2, Plasma 20(L) 22 - 29 mmol/L 10/16/2022 11:50 PM EDT [facility] Anion Gap 11 6 - 16 mmol/L 10/16/2022 11:50 PM EDT [facility] Total Calcium, Plasma 8.8(L) 8.9 - 10.2 mg/dL 10/16/2022 11:50 PM EDT [facility] Total Protein 6.4 6.3 - 7.9 g/dL 10/16/2022 11:50 PM EDT [facility] Albumin, Plasma 4.0 3.5 - 5.2 g/dL 10/16/2022 11:50 PM EDT [facility] AST, Plasma 26 10 - 35 U/L 10/16/2022 11:50 PM EDT [facility] ALT, Plasma 25 10 - 35 U/L 10/16/2022 11:50 PM EDT [facility] Alkaline Phosphatase, Plasma 80 35 - 104 U/L 10/16/2022 11:50 PM EDT [facility] Total Bilirubin, Plasma <0.2(L) 0.2 - 1.1 mg/dL 10/16/2022 11:50 PM EDT [facility] eGFRcr 120.2 mL/min/1.7 3m*2 10/16/2022 11:50 PM EDT [facility] Comment:Reported eGFRcr in m L/min/1.73m2 is based the CKD-EPI 2020 equation that does not use a race coefficient. Blood Venous blood specimen / Unknown Venipuncture / Unknown 10/16/2022 11:13 PM EDT 10/16/2022 11:18 PM EDT Lester NAJERA LAB BLOOD ORDERABLES Fi nal Result [facility] [address] [place] [address] * (ABNORMAL) CBC (10/16/2022 11:13 PM EDT) WBC Count 6.71 3.70 - 10.30 10*3/uL LAB HEMATOLOGY METHOD 10/16/2022 11:29 PM EDT [facility] RBC Count 4.10 3.90 - 5.20 10*6/uL LAB HEMATOLOGY METHOD 10/16/2022 11:29 PM EDT [facility] HGB 11.0(L) 11.2 - 15.7 g/dL LAB HEMATOLOGY METHOD 10/16/2022 11:29 PM EDT [facility] HCT 33.7(L) 34.0 - 45.0 % LAB HEMATOLOGY METHOD 10/16/2022 11:29 PM EDT [facility] Platelet Count 180 155 - 369 10*3/uL LAB HEMATOLOGY METHOD 10/16/2022 11:29 PM EDT [facility] MCV 82 79 - 98 fL LAB HEMATOLOGY METHOD 10/16/2022 11:29 PM EDT [facility] MCH 26.8 26.0 - 32.0 pg LAB HEMATOLOGY METHOD 10/16/2022 11:29 PM EDT [facility] MCHC 32.6 30.7 - 35.5 g/dL LAB HEMATOLOGY METHOD 10/16/2022 11:29 PM EDT [facility] RDW 15.9(H) 11.5 - 14.5 % LAB HEMATOLOGY METHOD 10/16/2022 11:29 PM EDT [facility] MPV 9.5 8.8 - 12.5 fL LAB HEMATOLOGY METHOD 10/16/2022 11:29 PM EDT [facility] nRBC 0.0 <=0.0 per 100 WBCs LAB HEMATOLOGY METHOD 10/16/2022 11:29 PM EDT [facility] Blood Venous blood specimen / Unknown Venipuncture / Unknown 10/16/2022 11:13 PM EDT 10/16/2022 11:18 PM EDT us Lester NAJERA LAB BLOOD ORDERABLES Fi nal Result [facility] [address] [place] [address] documented in this encounter Visit Diagnoses Diagnosis Abdominal pain, generalized- Primary documented in this encounter Administered Medications Inactive Administered Medications - up to 3 most recent administrations Medication Order MAR Action Action Date Dose Rate Site HYDROmorphone (Dilaudid) injection 0.5 mg 0.5 mg, Intravenous, Once, 1 dose, On Annabel 10/16/22 at 2235, Routine Given 10/16/2022 11:10 PM EDT 0.5 mg lactated Ringer's infusion 1,000 mL 1,000 mL, Intravenous, Once, 1 dose, On Annabel 10/16/22 at 2235, STAT New Bag 10/16/2022 11:13 PM EDT 1,000 mL oxyCODONE (Roxicodone) immediate release tablet 5 mg 5 mg, Oral, Once, 1 dose, On Thu10/17/22 at 0120, STAT Given 10/17/2022 1:32 AM EDT 5 mg promethazine (Phenergan) injection 25 mg 25 mg, Intravenous, Once, 1 dose, On Annabel 10/16/22 at 2235, STAT Given 10/16/2022 11:11 PM EDT 25 mg documented in this encounter Active and Recently Administered Medications Times are shown in EDT. Scheduled Medication Order 10/15/2022 10/16/2022 10/17/2022 HYDROmorphone (Dilaudid) injection 0.5 mg (COMPLETED) 0.5 mg, Intravenous, Once, 1 dose, On Annabel 10/16/22 at 2235, Routine 2310 (Given - Provider: Angela Almanzar RN) lactated Ringer's infusion 1,000 mL (COMPLETED) 1,000 mL, Intravenous, Once, 1 dose, On Annabel 8/24/23 at 2235, STAT 2313 (New Bag - Provider: Angela Almanzar, RN) 0036 (Stopped - Provider: Angela Almanzar RN) oxyCODONE (Roxicodone) immediate release tablet 5 mg (COMPLETED) 5 mg, Oral, Once, 1 dose, On 10/17/22 at 0120, STAT 0132 (Given - Provid er: Angela Almanzar, CHANDNI) promethazine (Phenergan) injection 25 mg (COMPLETED) 25 mg, Intravenous, Once, 1 dose, On Annabel 10/16/22 at 2235, STAT 2311 (Given - Provider: Angela Almanzar, CHANDNI) documented in this encounter Additional Health Concerns Assessment Noted Time A fall risk assessment has been complete d for the patient 11/21/2020 2:30 PM EDT documented as of this encounter Care Teams Recycling Specialist Relationship Specialty Start Date End Date Elmo Escobar MD PCP - General 10/18/20 01/05/23 documented as of this encounter
--- OUTSIDE RECORDS SUMMARY | 2024-02-03 15:19 | XMS_ITS | Encounter Summary ---
Author Organization Healthcare Address [address] [place] [address] Care Team Providers Care Manager Internship Name Role Phone Elmo Escobar MD Primary Care Provider [phone] Reason for Visit * Reason Comments Abdominal Pain * Auth/Cert (Routine) Specialty Diagnoses / Procedures Referred By Susy t Referred To Contact Diagnoses Acute on chronic pancreatitis (CMS/HCC) Aysha Leija MD [address] [place] [address] Phone: tel: fax: [facility] Emergency Department [address] [place] [address] Phone: tel: Referral ID Status Reason Start Date Expiration Date Visits Re quested Visits Authorized [id number] 1 1 Encounter Details Date Type Department Care Team (Late st Contact Info) Description 09/27/2022 12:49 PM EDT - 09/27/2022 1:24 PM EDT Emergency [facility] Emergency Department [address] [place] [address] George Martinez MD [address] [place] [address] Epigastric pain (Primary Dx) Discharge Disposition: [...] drink first t caleb in the morning ([employer]) to steady your nerves or to get [...] Sign Reading Time Taken Comments Blood Pressure 158/103 09/27/2022 12:56 PM EDT Pulse 122 09/27/2022 12:56 PM EDT Temperature 36.8 ??C (98.2 ??F) 09/27/2022 12:56 PM E DT Respiratory Rate 18 09/27/2022 12:56 PM EDT Oxygen Saturation 98% 09/27/2022 12:56 PM EDT Inhaled Oxygen Concentration - - Weight - - Height - - Body Mass Index - - documented in this encounter Discharge Instructions * Discharge Instructions* George Martinez MD - 09/27/2022 1:16 PM EDT At this time we will not be admitting you for your pain or performing any labs for that other. If you wish to seek care through GI you can do so as an outpatient. If Symptoms worsen your always welcome to seek care elsewhere or here should you so choose. documented in this encounter Medications at Time of Discharge pantoprazole (Protonix) 40 MG EC tablet Take 1 tablet (40 mg) by mouth 1 (one) time each day. Do not crush, chew, or split. lactulose (Chronulac) 10 GM/15ML solution Take 30 mL (20 g) by mouth 1 (one) time each day. 900 mL 09/21/2022 10/22/19 23 acetaminophen (Tylenol) 500 MG tablet Take [...] for nausea or vomiting for up to 11 doses. 11 tablet 08/08/2022 10/11/19 23 documented as of this encounter Miscellaneous Notes * ED Provider Notes - George Martinez MD - 09/27/2022 12:49 PM EDT Images from the original note were not included. - HPI Chief Complaint Patient presents with Abdominal Pain Lila Mcnally is a 36 y.o. female with a history of anxiety, GERD, HTN, and pancreatitis who presents to the ED with abdominal pain. Pt c/o epigastric abdominal pain. Pt was seen at this ED on 8or a similar episode. She states she left [facility] this am AMA due to disagreement with admitting doctor about pain management, decreased dilaudid dosage, and because that hospital sucks. Pt presents to this ED to request lipase level check. Per chart review, last lipase collected at [facility] was 67 U/L at 4:05 this am. Pt denies any other associated pain or symptoms and has no other acute complaints at this time. 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 by: Patient and medical records Jo Coma Scale Score: 15 Patient History [...] reviewed Allergies: Allergies Allergen Reactions Droperidol Other Experienced an acute dystonic reaction treated with diphenhydramine Tramadol Rash and Dizziness Patient described previously experiencing panic attacks too. Review of Systems Review of Systems Constitutional: Negative for appetite change, chills and fever. HENT: Negative for congestion, ear pain and sore throat. Eyes: Negative for pain and visual disturbance. Respiratory: Negative for cough and shortness of breath. Cardiovascular: Negative for chest pain. Gastrointestinal: Positive for abdominal pain. Negative for diarrhea, nausea and vomiting. Genitourinary: Negative for dysuria, flank pain, frequency and hematuria. Musculoskeletal: Negative for back pain and neck pain. Skin: Negative for rash and wound. Neurological: Negative for seizures, syncope and headaches. Psychiatric/Behavioral: Negative for confusion and self-injury. Physical Exam ED Triage Vitals [09/27/22 1256] Temp Heart Rate Resp BP 36.8 ??C (98.2 ??F) (!) 122 18 (!) 158/103 SpO2 Temp Source Heart Rate Source Patient Position 98 % Oral Monitor Sitting BP Location FiO2 (%) Right arm -- Physical Exam Vitals and nursing note reviewed. Constitutional: General: She is not in acute distress. Appearance: Normal appearance. She is normal weight. Interventions: She is not intubated. Comments: Visibly upset, crying HENT: Head: Normocephalic and atraumatic. Nose: Nose normal. No rhinorrhea. Eyes: General: Lids are normal. Pupils: Pupils are equal. Cardiovascular: Heart sounds: No murmur heard. Pulmonary: Effort: Pulmonary effort is normal. No respiratory distress. She is not intubated. Abdominal: General: There are no signs of injury. Tenderness: There is no abdominal tenderness. Musculoskeletal: General: No signs of injury. Normal range of motion. Cervical back: Normal range of motion. No deformity or signs of trauma. Skin: Coloration: Skin is not jaundiced or pale. Neurological: General: No focal deficit present. Mental Status: She is alert and oriented to person, place, and time. Sensory: Sensation is intact. Motor: Motor function is intact. Psychiatric: Attention and Perception: Attention and perception normal. Speech: Speech normal. Behavior: Behavior is cooperative. Cognition and Memory: Cognition normal. ED Course & MDM Clinical Impressions as of 09/27/22 1338 Epigastric pain Lila Mcnally is a 36 yrs old female presents today for Chief Complaint Patient presents with Abdominal Pain . ED Course Narrative: Patient is a 36-year-old female with history of several admissions and frequent visits this year for epigastric pain. Patient believe she has chronic pancreatitis though imaging has never been suggestive of this in the past. Review of the patient's most recent ED charts and admissions for the last 48 hours indicate that the patient was admitted for intractable abdominal pain to [facility] yesterday and due to a dispute over pain medication dosing and schedule left against medical advice early in the a.m. this morning. Patient then went to [facility] and was admitted to internal medicine again for intractable abdominal pain thought to be possibly relatedto chronic pancreatitis though CT scan shows no evidence of pancreatic inflammation. Patient statesthat she was unhappy with the treatment at that hospital as she felt that her pain was not adequately addressed by the hospitalist physician. Patient returns today stating that she made a mistake leaving last night and would like to be readmitted to [facility] for continuing pain control. Review of her labs indicate that patient did not have a elevated lipase when last collected at 4:00 a.m..Noted to be 67. Patient is adamant that she wants a repeat lipase after trying to eat upon leaving [facility] and experiencing pain. She does not appear to be in any distress, she is tearful and anxious which we suspect is contributing to the patient's tachycardia upon arrival today. Patient's physical exam is also not impressive with very mild upper abdominal tenderness on palpation. This is the case across multiple ER visit documentation. At this time we strongly suspect that the patient is exhi biting drug-seeking behavior and we do not have high suspicion that this patient has diagnosis thatrequires her to be admitted to the hospital. She is recommended to follow-up with pain management as well as GI for her acute on chronic abdominal pain in the epigastric area. We informed her that wewill not be using any opiates to treat her today. We discharged her from the ER. Medical Decision Making 09/27/2022, 1:15 PM Scribe Attestation: This note was dictated to me, Sonal Telles, acting as a scribe for George Dawkins MD. Attending Attestation: This documentation was recorded by Sonal Telles acting as a scribe in my presence at the time of the encounter and accurately reflects the service I personally performed and thedecisions made by me. ED Prescriptions None Discharge Instructions At this time we will not be admitting you for your pain or performing any labs for that other. If you wish to seek care through GI you can do so as an outpatient. If Symptoms worsen your always welcome to seek care elsewhere or here should you so choose. Disposition Discharge Sign Off Checklist Clinical Impression: Complete ED Disposition: Complete - George Martinez MD 09/27/22 1338 * ED Triage Notes - Alexandria Hernandez RN - 09/27/2022 12:49 PM EDT Pt states she was admitted yesterday from ER for abdominal pain and her and the doctor disagreedon pain management so she left [place] and went to [facility]. At [facility], she stated that that hospital sucks and didn't treat my pain . So she left and decided to come back here. Right now she is complaining of stomach pain, especially after she eats and reports two episodes of vomiting yesterday. Ofnote at [facility] she was given morphine and oxycodone. Last dose 0900. documented in this encounter Plan of Treatment Not on file documented as of this encounter Visit Diagnoses Diagnosis Epigastric pain- Primary Abdominal pain, epigastric documented in this encounter Additional Health Concerns Assessment Noted Time A fall risk assessment has been complete d for the patient 11/21/2020 2:30 PM EDT documented as of this encounter Care Teams Manager Internship Relationship Specialty Start Date End Date Elmo Escobar MD PCP - General 10/18/20 01/05/23 documented as of this encounter
--- OUTSIDE RECORDS SUMMARY | 2024-02-03 15:19 | XMS_ITS | Encounter Summary ---
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) to steady your nerves or to [...] Sign Reading Time Taken Comments Blood Pressure 143/96 11/05/2022 9:53 AM EDT Pulse 100 11/05/2022 9:53 AM EDT Temperature 36.8 ??C (98.3 ??F) 11/05/2022 9:53 AM ED T Respiratory Rate 20 11/05/2022 9:53 AM EDT Oxygen Saturation 99% 11/05/2022 9:53 AM EDT Inhaled Oxygen Concentration - - Weight 108 kg (237 lb 7 oz) 11/05/2022 9:53 AM E DT Height 165.1 cm (5' 5 ) 11/05/2022 9:53 AM EDT Body Mass Index 39.51 11/05/2022 9:53 AM EDT documented in this encounter Discharge Instructions * Discharge Instructions* Abigail Thompson APRN - 11/05/2022 1:23 PM EDT Follow-up outpatient with your primary care provider within 1 week and GI clinic. Any new or worsening symptoms please return to the emergency department. * Attachments The following attachments cannot be sent through Care Everywhere. * Abdominal Pain, Adult (Citizen [place]) documented in this encounter Medications at Time [...] nostrils, until medical assistance arrives. 1 each 11 09/17/2022 11/12/19 23 ondansetron ODT (Zofran-ODT) 4 [...] Provider Notes - Abigail Thompson APRN - 11/05/2022 9:28 AM EDT Images from the original note were not included. - HPI Chief Complaint Patient presents with Abdominal Pain Lila Mcnally is a 36 y.o. female PMH anxiety, depression, fibromyalgia, GERD, hypertension, andpancreatitis status post cholecystectomy and ERCP in 2011 who presents to the Emergency Department with complaints of epigastric and LUQ abdominal pain x 2 days. Saw her PCP 2 days ago and she statesthey gave her 1 pain pill. She took that yesterday but last night pain continued and was unable to sleep or get comfortable all night . Tried to get in touch with her PCP today but unable to do so. Has had nausea, 2 episodes of emesis, has not had anything to eat or drink this morning. States painis her usual chronic abdominal pain. Denies any fevers or chills, headache, chest pain, shortness of breath, cough, dysuria symptoms. Denies any recent alcohol use. States she does not want any imaging done today and less lipase is elevated.. 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 by: Patient No data recorded [...] color change and rash. Neurological: Negative for seizures, syncope and headaches. Psychiatric/Behavioral: The patient is not nervous/anxious. All other systems reviewed and are negative. Physical Exam ED Triage Vitals [11/05/22 0953] Temp Heart Rate Resp BP 36.8 ??C (98.3 ??F) 100 20 (!) 143/96 SpO2 Temp src Heart Rate Source Patient Position 99 % -- -- Sitting BP Location FiO2 (%) Right [...] Course & MDM Clinical Impressions as of 11/05/22 1329 Left upper quadrant abdominal pain - Medical Decision Making Lila Mcnally is a 36 yrs old female presents today for abdominal pain, nausea, vomiting. Differential diagnosis includes gastritis, pancreatitis, mesenteric ischemia. Ruling out the most morbid conditions drove my clinical assessment. In order to fully explore differential these tests and treatments were ordered. Orders Placed This Encounter CMP Lipase Lactic acid, venous Ethyl Alcohol Plasma hCG qualitative CBC Medications lactated Ringer's infusion 1,000 mL (has no administration in time range) ondansetron (Zofran) injection 4 mg (has no administration in time range) morphine PF 4 mg (has no administration in time range) Old records for this patient were reviewed and found to be pertinent. Records review indicates thatpatient seen in ED October 26, 2022 an abdominal ultrasound showed no acute findings, had CT imaging October 18, 2022 showing no acute findings in the abdomen. It should be noted that her chronic conditions includes abdominal pain, which currently is not at goal therapy. This complicates her clinical picture because it may be exacerbating symptoms. Additional history was provided by family at bedside. I considered the utility of obtaining CT Scan, but decided to forgo this after shared decision making with the patient/family because the patient or family does not think it is necessary. As she endorses this is her usual chronic abdominal pain, lipase within normal limits no CT imaging warranted today. Lab results were reviewed independently and can be interpreted as non actionable. Lactate 2.5, she was given on liter IV fluids. Lab Results Labs Reviewed COMPREHENSIVE METABOLIC PANEL, PLASMA - Abnormal Glucose, Plasma 118 (*) BUN, Plasma 8 Creatinine, Plasma 0.53 (*) BUN/Creatinine Ratio 15 Sodium, Plasma 136 Potassium, Plasma 4.6 Chloride, Plasma 105 CO2, Plasma 19 (*) Anion Gap 12 Total Calcium, Plasma 9.5 Total Protein 7.5 Albumin, Plasma 4.5 AST, Plasma 12 ALT, Plasma 15 Alkaline Phosphatase, Plasma 86 Total Bilirubin, Plasma 0.2 eGFRcr 123.9 LACTATE, VENOUS - Abnormal Lactate, Venous, Whole Blood 2.5 (*) CBC W/O DIFFERENTIAL - Abnormal WBC Count 9.27 RBC Count 4.57 HGB 12.2 HCT 37.5 Platelet Count 248 MCV 82 MCH 26.7 MCHC 32.5 RDW 16.0 (*) MPV 10.0 nRBC 0.0 LIPASE, PLASMA - Normal Lipase, Plasma 26 ETHYL ALCOHOL PLASMA - Normal Ethanol Plasma <10 Narrative: Enzymatic Assay: Performed on Girish Slime. TEST QUALITATIVE PLASMA - Normal Ultimately, this patient was discharged Home (Discharge) The encounter diagnosis was Left upper quadrant abdominal pain. . Patient was counseledon the diagnoses.Discharge medications if any are listed below. Listed medications are thought be either curative for listed diagnoses or will help control ongoing symptoms. Patient is requested to follow up with PCP and GI in order to obtain routine follow-up. Instructions on follow up as well as precautions to return to the ER provided verbally by the EDAPP, as well as written in patients discharge education packet. Discussed with patient and her mother that lipase is 26, lactate was mildly elevated at 2.5 and she did receive 1 L IV fluids, IV morphine, IV Zofran here in the ED will give her oxycodone 10 mg oral at discharge but for any additional pain medication she will need to reach out to her PCP to see if he has called in any additional pain meds for her. We also discussed follow-up with GI and pain management and she verbalizes understanding. Any new or worsening symptoms pleasereturn to the emergency department. She is had no emesis while in the ED, tolerating oral fluids. Di scussed she needs to maintain a clear liquid diet and advanced as tolerated. Specific instructions provided are as follows: Discharge Instructions Follow-up outpatient with your primary care provider within 1 week and GI clinic. Any new or worsening symptoms please return to the emergency department. Discharge References/Attachments Abdominal Pain, Adult (Citizen [place]) Disposition Discharge Follow-Ups: Follow up with Elmo Escobar MD ED Prescriptions None Discharge Instructions Follow-up outpatient with your primary care provider within 1 week and GI clinic. Any new or worsening symptoms please return to the emergency department. Discharge References/Attachments Abdominal Pain, Adult (Citizen [place]) Disposition Discharge Follow-Ups: Follow up with Elmo Escobar MD Sign Off Checklist Clinical Impression: Complete ED Disposition: Complete - Abigail Thompson, ESTEBAN 11/05/22 1329 Cosigned by Carter Donis MD at 11/05/2022 1:45 PM EDT Associated attestation - Carter Donis MD - 11/05/2022 1:45 PM EDT The patient was seen only by Advanced Practice Provider (AJAY), and care was reviewed with me. * ED Triage Notes - Gela Joseph RN - 11/05/2022 9:28 AM EDT Pt c/o pain in abdomen since Thursday evening. Had appt with pcp on Thursday and he gave her one hydrocodone. She says her pain is out of control and she didn't sleep last night. Pt says she has a history of pancreatitis. documented in this encounter Plan of Treatment Not on file documented as of this encounter Procedures Procedure Name Priority Date/Time Associated Diagnosis Comments LACTATE, VENOUS STAT 11/05/2022 11:59 AM EDT ETHYL ALCOHOL PLASMA STAT 11/05/2022 11:59 AM EDT CBC W/O DIFFERENTIAL STAT 11/05/2022 11:59 AM EDT TEST QUALITATIVE PLASMA STAT 11/05/2022 11:59 AM EDT LIPASE, PLASMA STAT 11/05/2022 11:59 AM EDT COMPREHENSIVE METABOLIC PANEL, PLASMA STAT 11/05/2022 11:59 AM EDT documented in this encounter Results * (ABNORMAL) CBC (11/05/2022 11:59 AM EDT) WBC Count 9.27 3.70 - 10.30 10*3/uL LAB HEMATOLOGY METHOD 11/05/2022 12:12 PM EDT [facility] RBC Count 4.57 3.90 - 5.20 10*6/uL LAB HEMATOLOGY METHOD 11/05/2022 12:12 PM EDT [facility] HGB 12.2 11.2 - 15.7 g/dL LAB HEMATOLOGY METHOD 11/05/2022 12:12 PM EDT [facility] HCT 37.5 34.0 - 45.0 % LAB HEMATOLOGY METHOD 11/05/2022 12:12 PM EDT [facility] Platelet Count 248 155 - 369 10*3/uL LAB HEMATOLOGY METHOD 11/05/2022 12:12 PM EDT [facility] MCV 82 79 - 98 fL LAB HEMATOLOGY METHOD 11/05/2022 12:12 PM EDT [facility] MCH 26.7 26.0 - 32.0 pg LAB HEMATOLOGY METHOD 11/05/2022 12:12 PM EDT [facility] MCHC 32.5 30.7 - 35.5 g/dL LAB HEMATOLOGY METHOD 11/05/2022 12:12 PM EDT [facility] RDW 16.0(H) 11.5 - 14.5 % LAB HEMATOLOGY METHOD 11/05/2022 12:12 PM EDT [facility] MPV 10.0 8.8 - 12.5 fL LAB HEMATOLOGY METHOD 11/05/2022 12:12 PM EDT [facility] nRBC 0.0 <=0.0 per 100 WBCs LAB HEMATOLOGY METHOD 11/05/2022 12:12 PM EDT [facility] Blood Venous blood specimen / Unknown Venipuncture / Unknown 11/05/2022 11:59 AM EDT 11/05/2022 12:04 PM EDT Abigail Thompson APRN LAB BLOOD ORDERABLES Final Result Performing Organization Address City/[facility] Co de Phone Number [facility] [address] [place] [address] * hCG qualitative (11/05/2022 11:59 AM EDT) Test Negative Negative 11/05/2022 12:51 PM EDT [facility] Blood Venous blood specimen / Unknown Venipuncture / Unknown 11/05/2022 11:59 AM EDT 11/05/2022 12:04 PM EDT Narrative [facility] - 11/05/2022 12:51 PM EDT Reference Range: Males and non- females: Negative. Abigail Thompson APRN LAB BLOOD ORDERABLES Final Result Performing Organization Address City/[facility]/ZIP Co de Phone Number [facility] [address] [place] [address] * Ethyl Alcohol Plasma (11/05/2022 11:59 AM EDT) Ethanol Plasma <10 <10 mg/dL 11/05/2022 12:51 PM EDT [facility] Blood Venous blood specimen / Unknown Venipuncture / Unknown 11/05/2022 11:59 AM EDT 11/05/2022 12:25 PM EDT Narrative [facility] - 11/05/2022 12:51 PM EDT Enzymatic Assay: Performed on Girish Slime. Abigail Thompson APRN LAB BLOOD ORDERABLES Final Result Performing Organization Address [facility] Co de Phone Number [facility] [address] [place] [phone] * (ABNORMAL) Lactic acid, venous (11/05/2022 11:59 AM EDT) Lactate, Venous, Whole Blood 2.5(H) 0.5 - 2.2 mmol/L LAB HEMATOLOGY METHOD 11/05/2022 12:05 PM EDT [facility] Blood Venous blood specimen / Unknown Venipuncture / Unknown 11/05/2022 11:59 AM EDT 11/05/2022 12:04 PM EDT Abigail Thompson APRN LAB BLOOD ORDERABLES Final Result Performing Organization Address [facility] de Phone Number [facility] [address] [place] [phone] * Lipase (11/05/2022 11:59 AM EDT) Lipase, Plasma 26 19 - 63 U/L 11/05/2022 12:51 PM EDT [facility] Blood Venous blood specimen / Unknown Venipuncture / Unknown 11/05/2022 11:59 AM EDT 11/05/2022 12:04 PM EDT Abigail Thompson [facility] LAB BLOOD ORDERABLES Final Result Performing Organization Address City/[facility] Co de Phone Number [facility] [address] [place] [address] * (ABNORMAL) CMP (11/05/2022 11:59 AM EDT) Glucose, Plasma 118(H) 74 - 99 mg/dL 11/05/2022 12:51 PM EDT [facility] BUN, Plasma 8 7 - 21 mg/dL 11/05/2022 12:51 PM EDT [facility] Creatinine, Plasma 0.53(L) 0.60 - 1.10 mg/dL 11/05/2022 12:51 PM EDT [facility] BUN/Creatinine Ratio 15 11/05/2022 12:51 PM EDT [facility] Sodium, Plasma 136 136 - 145 mmol/L 11/05/2022 12:51 PM EDT [facility] Potassium, Plasma 4.6 3.7 - 4.8 mmol/L 11/05/2022 12:51 PM EDT [facility] Chloride, Plasma 105 97 - 107 mmol/L 11/05/2022 12:51 PM EDT [facility] CO2, Plasma 19(L) 22 - 29 mmol/L 11/05/2022 12:51 PM EDT [facility] Anion Gap 12 6 - 16 mmol/L 11/05/2022 12:51 PM EDT [facility] Total Calcium, Plasma 9.5 8.9 - 10.2 mg/dL 11/05/2022 12:51 PM EDT [facility] Total Protein 7.5 6.3 - 7.9 g/dL 11/05/2022 12:51 PM EDT [facility] Albumin, Plasma 4.5 3.5 - 5.2 g/dL 11/05/2022 12:51 PM EDT [facility] AST, Plasma 12 10 - 35 U/L 11/05/2022 12:51 PM EDT [facility] ALT, Plasma 15 10 - 35 U/L 11/05/2022 12:51 PM EDT [facility] Alkaline Phosphatase, Plasma 86 35 - 104 U/L 11/05/2022 12:51 PM EDT [facility] Total Bilirubin, Plasma 0.2 0.2 - 1.1 mg/dL 11/05/2022 12:51 PM EDT [facility] eGFRcr 123.9 mL/min/1.7 3m*2 11/05/2022 12:51 PM EDT [facility] Comment:Reported eGFRcr in m L/min/1.73m2 is based the CKD-EPI 2020 equation that does not use a race coefficient. Blood Venous blood specimen / Unknown Venipuncture / Unknown 11/05/2022 11:59 AM EDT 11/05/2022 12:04 PM EDT us Abigail Thompson APRN LAB BLOOD ORDERABLES Final Result [facility] [address] [place] [phone] documented in this encounter Visit Diagnoses Diagnosis Left upper quadrant abdominal pain- Primary documented in this encounter Administered Medications Inactive Administered Medications - up to 3 most recent administrations Medication Order MAR Action Action Date Dose Rate Site lactated Ringer's infusion 1,000 mL 1,000 mL, Intravenous, Once, 1 dose, On Thu11/05/22 at 1010, STAT New Bag 11/05/2022 12:22 PM EDT 1,000 mL morphine PF 4 mg 4 mg, Intravenous, Once, 1 dose, On Thu11/05/22 at 1010, Routine Given 11/05/2022 12:18 PM EDT 4 mg ondansetron (Zofran) injection 4 mg 4 mg, Intravenous, Once, 1 dose, On Thu11/05/22 at 1010, STAT Given 11/05/2022 11:50 AM EDT 4 mg oxyCODONE (Roxicodone) immediate release tablet 10 mg 10 mg, Oral, Once, 1 dose, On Thu11/05/22 at 1325, Routine Given 11/05/2022 1:45 PM EDT 10 mg documented in this encounter Active and Recently Administered Medications Times are shown in EDT. Scheduled Medication Order 11/03/2022 11/04/2022 11/05/2022 lactated Ringer's infusion 1,000 mL (COMPLETED) 1,000 mL, Intravenous, Once, 1 dose, On Thu11/05/22 at 1010, STAT 1222 (New Bag - Prov ider: Dorys Donovan RN)1346 (Stopped - Provider: Angela Almanzar RN) morphine PF 4 mg (COMPLETED) 4 mg, Intravenous, Once, 1 dose, On Thu11/05/22 at 1010, Routine 1218 (Given - Provid er: Dorys Donovan RN) ondansetron (Zofran) injection 4 mg (COMPLETED) 4 mg, Intravenous, Once, 1 dose, On Thu11/05/22 at 1010, STAT 1150 (Given - Provid er: Angela Almanzar, RN) oxyCODONE (Roxicodone) immediate release tablet 10 mg (COMPLETED) 10 mg, Oral, Once, 1 dose, On Thu11/05/22 at 1325, Routine 1345 (Given - Provid er: Angela Almanzar, RN) documented in this encounter Additional Health Concerns Assessment Noted Time A fall risk assessment has been complete d for the patient 11/21/2020 2:30 PM EDT documented as of this encounter Care Teams Janitor Custodian Relationship Specialty Start Date End Date Elmo Escobar MD PCP - General 10/18/20 01/05/23 documented as of this encounter
--- OUTSIDE RECORDS SUMMARY | 2024-02-03 15:19 | XMS_ITS | Encounter Summary ---
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
--- OUTSIDE RECORDS SUMMARY | 2024-02-03 15:19 | XMS_ITS | Encounter Summary ---
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
--- OUTSIDE RECORDS SUMMARY | 2024-02-03 15:19 | XMS_ITS | Encounter Summary ---
Author Organization Healthcare Address [address] [place] [address] Care Team Providers Care Equipment Sterilizer Name Role Phone Emlo Escobar MD Primary Care Provider [phone] Reason for Visit * Reason Comments Abdominal Pain Encounter Details Date Type Department Care Team (Late st Contact Info) Description 10/20/2022 11:01 AM EDT - 10/20/2022 1:23 PM EDT Emergency [facility] Emergency Department [address] [place] [address] Chronic abdominal pain (Primary Dx) [...] drink first t caleb in the morning (EYE-AGRICULTURAL CHEMIST) to steady your nerves or to get [...] Sign Reading Time Taken Comments Blood Pressure 149/96 10/20/2022 1:22 PM EDT Pulse 87 10/20/2022 1:22 PM EDT Temperature 36.9 ??C (98.5 ??F) 10/20/2022 1:22 PM ED T Respiratory Rate 18 10/20/2022 1:22 PM EDT Oxygen Saturation 95% 10/20/2022 1:22 PM EDT Inhaled Oxygen Concentration - - Weight 110 kg (243 lb 9.7 oz) 10/20/2022 11:01 A M EDT Height 165.1 cm (5' 5 ) 10/20/2022 11:01 AM EDT Body Mass Index 40.54 10/20/2022 11:01 AM EDT documented in this encounter Discharge Instructions * Discharge Instructions* Laureen Mark APRN - 10/20/2022 12:57 PM EDT - today you were evaluated in the emergency department for abdominal pain, your lab work was overall unremarkable - you had a CT scan of your abdomen and pelvis on 10/18/2022 that was unremarkable - return to the ED for any worsening of your condition - please follow-up with your PCP within 3 days * Attachments The following attachments cannot be sent through Care Everywhere. * Abdominal Pain, Adult (Malian) documented in this encounter Medications at [...] Notes * ED Provider Notes - Laureen Mark, ESTEBAN - 10/20/2022 10:49 AM EDT Images from the original note were not included. - HPI Chief Complaint Patient presents with Abdominal Pain Patient is a 36-year-old female who presents to the ED for complaints of chronic, epigastric abdominal pain. Patient states she is a history of pancreatitis, has been drinking wine over the past 2 days. She states the pain is constant in the epigastric area associated with nausea. She has been evalu ated for chronic abdominal pain multiple times in the ED recently, had a CT of the abdomen and pelvis on 10/18/2022 that was unremarkable for anything acute. PMH cholecystectomy, pancreatitis, duodenal ulcers diagnosed by endoscopy. Patient is established with GI and PCP. She has a follow-up appointment with PCP a follow-up appointment with GI in about 15 days. Denies fever, chills, bodyaches, diarrhea, shortness of air, chest pain. No data recorded Patient History Past Medical [...] Review of Systems Review of Systems Constitutional: Negative. HENT: Negative. Eyes: Negative. Respiratory: Negative. Cardiovascular: Negative. Gastrointestinal: Positive for abdominal pain and nausea. Endocrine: Negative. Genitourinary: Negative. Musculoskeletal: Negative. Skin: Negative. Allergic/Immunologic: Negative. Neurological: Negative. Psychiatric/Behavioral: Negative. Physical Exam ED Triage Vitals [10/20/22 1101] Temp Heart Rate Resp BP 37.1 ??C (98.7 ??F) (!) 121 16 (!) 145/95 SpO2 Temp Source Heart Rate Source Patient Position 96 % Oral -- Sitting BP Location FiO2 (%) Right arm -- Physical Exam HENT: Head: Atraumatic. Eyes: Pupils: Pupils are equal, round, and [...] right CVA tenderness or left CVA tenderness. Skin: General: Skin is warm and dry. Capillary Refill: Capillary refill takes less than 2 seconds. Neurological: General: No focal deficit present. Mental Status: She is alert. Psychiatric: Mood and Affect: Mood normal. Behavior: Behavior normal. ED Course & MDM Clinical Impressions as of 10/20/22 1336 Chronic abdominal pain OPIOID SMARTFORM Medical Decision Making In summary, patient is a 36-year-old female who presents to the ED for complaints of chronic, epigastric abdominal pain. Patient states she is a history of pancreatitis, has been drinking wine over the past 2 days. She states the pain is constant in the epigastric area associated with nausea. She has been evaluated for chronic abdominal pain multiple times in the ED recently, had a CT of the abdomen and pelvis on 10/18/2022 that was unremarkable for anything acute. PMH cholecystectomy, pancreatitis, duodenal ulcers diagnosed by endoscopy. Patient is established with GI and PCP. She has a follow-up appointment with PCP a follow-up appointment with GI in about 15 days. Denies fever, chills, body aches, diarrhea, shortness of air, chest pain. Differential diagnosis includes pancreatitis, chronic abdominal pain, SBO, appendicitis, pyelonephritis among others. Upon initial presentation to the ED, patient is hemodynamically stable, alert and cooperative. Physical exam remarkable for epigastric tenderness. Patient is symptomatically managed with 1L LR, hydromorphone 0.25 mg IV, promethazine 12.5 mg IV, oxycodone 5mg PO. CBC and CMP unremarkable. Lactate and lipase unremarkable. Patient reports moderate improvement in epigastric pain since being in the ED. Discussed with patient that since her lab work was unremarkable, I do not feel that a CT of her abdomen and pelvis would be beneficial as she just had 1 on 10/18/2022 that was unremarkable. Shared decision making use, patient agreeable to plan of care. We discussed to keep her follow-up with her PCP and GI. We discussed return precautions. Patient discharged home from the ED was ambulatory and hemodynamically stable that time. Patient states she does not need any prescriptions that she has Zofran at home. ED Prescriptions None Discharge Instructions - today you were evaluated in the emergency department for abdominal pain, your lab work was overall unremarkable - you had a CT scan of your abdomen and pelvis on 10/18/2022 that was unremarkable - return to the ED for any worsening of your condition - please follow-up with your PCP within 3 days Discharge References/Attachments Abdominal Pain, Adult (Malian) Disposition Discharge AVS (Printed 10/20/2022) Follow-Ups: Schedule an appointment with Elmo Escobar MD Sign Off Checklist Clinical Impression: Complete ED Disposition: Complete - Laureen Mark APRN 10/20/22 1336 Cosigned by Jermain Saravia MD at 10/26/2022 4:28 PM EDT Associated attestation - Jermain Saravia MD - 10/26/2022 4:28 PM EDT The patient was seen only by Advanced Practice Provider (AJAY). * ED Triage Notes - Carlton Sr RN - 10/20/2022 10:49 AM EDT Pt complains of throbbing epigastric pain since last Thursday with NVD. Worse after eating. documented in this encounter Plan of Treatment Not on file documented as of this encounter Procedures Procedure Name Priority Date/Time Associated Diagnosis Comments LACTATE, VENOUS STAT 10/20/2022 11:55 AM EDT URINALYSIS WITH REFLEX MICROSCOPIC STAT 10/20/2022 11:55 AM EDT CBC W/O DIFFERENTIAL STAT 10/20/2022 11:55 AM EDT LIPASE, PLASMA STAT 10/20/2022 11:55 AM EDT COMPREHENSIVE METABOLIC PANEL, PLASMA STAT 10/20/2022 11:55 AM EDT documented in this encounter Results * Urinalysis with reflex microscopic (10/20/2022 11:55 AM EDT) Color, Urine Yellow LAB URINALYSIS - AUTOMATED METHOD 10/20/2022 12:05 PM EDT [facility] Clarity, Urine Clear LAB URINALYSIS - AUTOMATED METHOD 10/20/2022 12:05 PM EDT [facility] Spec Duarte, Urine <=1.005 <=1.005 to >=1.030 LAB URINALYSIS - AUTOMATED METHOD 10/20/2022 12:05 PM EDT [facility] pH, Urine 6.5 4.5 to 8 LAB URINALYSIS - AUTOMATED METHOD 10/20/2022 12:05 PM EDT [facility] Protein, Urine Negative Negative mg/dL LAB URINALYSIS - AUTOMATED METHOD 10/20/2022 12:05 PM EDT [facility] Glucose, Urine Negative Negative mg/dL LAB URINALYSIS - AUTOMATED METHOD 10/20/2022 12:05 PM EDT [facility] Ketones, Urine Negative Negative mg/dL LAB URINALYSIS - AUTOMATED METHOD 10/20/2022 12:05 PM EDT [facility] Blood, Urine Negative Negative LAB URINALYSIS - AUTOMATED METHOD 10/20/2022 12:05 PM EDT [facility] Bilirubin, Urine Negative Negative LAB URINALYSIS - AUTOMATED METHOD 10/20/2022 12:05 PM EDT [facility] Urobilinogen, Urine 0.2 0.2 to 1.0 mg/dL LAB URINALYSIS - AUTOMATED METHOD 10/20/2022 12:05 PM EDT [facility] Leukocytes, Urine Negative Negative LAB URINALYSIS - AUTOMATED METHOD 10/20/2022 12:05 PM EDT [facility] Nitrite, Urine Negative Negative LAB URINALYSIS - AUTOMATED METHOD 10/20/2022 12:05 PM EDT [facility] Urine Urine specimen obtained by clean catch procedure / Unknown Non-blood Collection / Unknown 10/20/2022 11:55 AM EDT 10/20/2022 12:02 PM EDT us Laureen Mark APRN LAB URINE ORDERABLES Final Result Performing Organization Address [facility] Co de Phone Number [facility] [address] [place] [address] * (ABNORMAL) Lactic acid, venous (10/20/2022 11:55 AM EDT) Lactate, Venous, Whole Blood 3.0(H) 0.5 - 2.2 mmol/L LAB HEMATOLOGY METHOD 10/20/2022 12:05 PM EDT [facility] Blood Venous blood specimen / Unknown Venipuncture / Unknown 10/20/2022 11:55 AM EDT 10/20/2022 12:00 PM EDT us Laureen Mark APRN LAB BLOOD ORDERABLES Final Result Performing Organization Address City/[facility] Co de Phone Number [facility] [address] [place] [address] * Lipase (10/20/2022 11:55 AM EDT) Lipase, Plasma 22 19 - 63 U/L 10/20/2022 12:40 PM EDT [facility] Blood Venous blood specimen / Unknown Venipuncture / Unknown 10/20/2022 11:55 AM EDT 10/20/2022 12:03 PM EDT us Laureen Mark APRN LAB BLOOD ORDERABLES Final Result Performing Organization Address City/[facility] Co de Phone Number [facility] [address] [place] [address] * (ABNORMAL) CMP (10/20/2022 11:55 AM EDT) Glucose, Plasma 78 74 - 99 mg/dL 10/20/2022 12:40 PM EDT [facility] BUN, Plasma 7 7 - 21 mg/dL 10/20/2022 12:40 PM EDT [facility] Creatinine, Plasma 0.61 0.60 - 1.10 mg/dL 10/20/2022 12:40 PM EDT [facility] BUN/Creatinine Ratio 11 10/20/2022 12:40 PM EDT [facility] Sodium, Plasma 141 136 - 145 mmol/L 10/20/2022 12:40 PM EDT [facility] Potassium, Plasma 3.7 3.7 - 4.8 mmol/L 10/20/2022 12:40 PM EDT [facility] Chloride, Plasma 106 97 - 107 mmol/L 10/20/2022 12:40 PM EDT [facility] CO2, Plasma 19(L) 22 - 29 mmol/L 10/20/2022 12:40 PM EDT [facility] Anion Gap 16 6 - 16 mmol/L 10/20/2022 12:40 PM EDT [facility] Total Calcium, Plasma 9.0 8.9 - 10.2 mg/dL 10/20/2022 12:40 PM EDT [facility] Total Protein 7.3 6.3 - 7.9 g/dL 10/20/2022 12:40 PM EDT [facility] Albumin, Plasma 4.3 3.5 - 5.2 g/dL 10/20/2022 12:40 PM EDT [facility] AST, Plasma 26 10 - 35 U/L 10/20/2022 12:40 PM EDT [facility] ALT, Plasma 33 10 - 35 U/L 10/20/2022 12:40 PM EDT [facility] Alkaline Phosphatase, Plasma 99 35 - 104 U/L 10/20/2022 12:40 PM EDT [facility] Total Bilirubin, Plasma <0.2(L) 0.2 - 1.1 mg/dL 10/20/2022 12:40 PM EDT [facility] eGFRcr 119.7 mL/min/1.7 3m*2 10/20/2022 12:40 PM EDT [facility] Comment:Reported eGFRcr in m L/min/1.73m2 is based the CKD-EPI 2020 equation that does not use a race coefficient. Blood Venous blood specimen / Unknown Venipuncture / Unknown 10/20/2022 11:55 AM EDT 10/20/2022 12:03 PM EDT Laureen Mark ELECTRONIC OPERATOR LAB BLOOD ORDERABLES Final Result [facility] [address] [place] [address] * (ABNORMAL) CBC (10/20/2022 11:55 AM EDT) WBC Count 6.03 3.70 - 10.30 10*3/uL LAB HEMATOLOGY METHOD 10/20/2022 12:04 PM EDT [facility] RBC Count 4.64 3.90 - 5.20 10*6/uL LAB HEMATOLOGY METHOD 10/20/2022 12:04 PM EDT [facility] HGB 12.1 11.2 - 15.7 g/dL LAB HEMATOLOGY METHOD 10/20/2022 12:04 PM EDT [facility] HCT 38.0 34.0 - 45.0 % LAB HEMATOLOGY METHOD 10/20/2022 12:04 PM EDT [facility] Platelet Count 202 155 - 369 10*3/uL LAB HEMATOLOGY METHOD 10/20/2022 12:04 PM EDT [facility] MCV 82 79 - 98 fL LAB HEMATOLOGY METHOD 10/20/2022 12:04 PM EDT [facility] MCH 26.1 26.0 - 32.0 pg LAB HEMATOLOGY METHOD 10/20/2022 12:04 PM EDT [facility] MCHC 31.8 30.7 - 35.5 g/dL LAB HEMATOLOGY METHOD 10/20/2022 12:04 PM EDT [facility] RDW 15.8(H) 11.5 - 14.5 % LAB HEMATOLOGY METHOD 10/20/2022 12:04 PM EDT [facility] MPV 9.4 8.8 - 12.5 fL LAB HEMATOLOGY METHOD 10/20/2022 12:04 PM EDT [facility] nRBC 0.0 <=0.0 per 100 WBCs LAB HEMATOLOGY METHOD 10/20/2022 12:04 PM EDT [facility] Blood Venous blood specimen / Unknown Venipuncture / Unknown 10/20/2022 11:55 AM EDT 10/20/2022 12:02 PM EDT Laureen Nathaniel Deedee [place] LAB BLOOD ORDERABLES Final Result Performing Organization Address City/State/[facility] Co de Phone Number [facility] [address] [place] [phone] documented in this encounter Visit Diagnoses Diagnosis Chronic abdominal pain- Primary Abdominal pain, unspecified site documented in this encounter Administered Medications Inactive Administered Medications - up to 3 most recent administrations Medication Order MAR Action Action Date Dose Rate Site HYDROmorphone (Dilaudid) injection 0.25 mg 0.25 mg, Intravenous, Once, 1 dose, On Thu10/20/22 at 1145, STAT Given 10/20/2022 11:55 AM EDT 0.25 mg lactated Ringer's infusion 1,000 mL 1,000 mL, Intravenous, Once, 1 dose, On Thu10/20/22 at 1145, STAT New Bag 10/20/2022 12:02 PM EDT 1,000 mL oxyCODONE (Roxicodone) immediate release tablet 5 mg 5 mg, Oral, Once, 1 dose, On Thu10/20/22 at 1305, STAT Given 10/20/2022 1:20 PM EDT 5 mg promethazine (Phenergan) injection 12.5 mg 12.5 mg, Intravenous, Once, 1 dose, On Thu10/20/22 at 1145, STAT Given 10/20/2022 11:57 AM EDT 12.5 mg documented in this encounter Active and Recently Administered Medications Times are shown in EDT. Scheduled Medication Order 10/18/2022 10/19/2022 10/20/2022 HYDROmorphone (Dilaudid) injection 0.25 mg (COMPLETED) 0.25 mg, Intravenous, Once, 1 dose, On Thu10/20/22 at 1145, STAT 1155 (Given - Provid er: Kirill Blevins RN) lactated Ringer's infusion 1,000 mL (COMPLETED) 1,000 mL, Intravenous, Once, 1 dose, On Thu10/20/22 at 1145, STAT 1202 (New Bag - Prov ider: Kirill Blevins RN)1320 (Stopped - Provider: Kirill Blevins RN) oxyCODONE (Roxicodone) immediate release tablet 5 mg (COMPLETED) 5 mg, Oral, Once, 1 dose, On Thu10/20/22 at 1305, STAT 1320 (Given - Provid er: Kirill Blevins RN) promethazine (Phenergan) injection 12.5 mg (COMPLETED) 12.5 mg, Intravenous, Once, 1 dose, On Thu10/20/22 at 1145, STAT 1157 (Given - Provid er: Kirill Blevins RN) documented in this encounter Additional Health Concerns Assessment Noted Time A fall risk assessment has been complete d for the patient 11/21/2020 2:30 PM EDT documented as of this encounter Care Teams Equipment Sterilizer Relationship Specialty Start Date End Date Elmo Escobar MD PCP - General 10/18/20 01/05/23 documented as of this encounter
--- OUTSIDE RECORDS SUMMARY | 2024-02-03 15:19 | XMS_ITS | Encounter Summary ---
Author Organization Healthcare Address [address] [place] [address] Care Team Providers Care Auto Parts Manager Name Role Phone Elmo Escobar MD Primary Care Provider [phone] Reason for Visit * Reason Comments Abdominal Pain Encounter Details Date Type Department Care Team (Late st Contact Info) Description 10/15/2022 9:59 PM EDT - 10/16/2022 12:03 AM EDT Emergency [facility] Emergency Department [address] [place] [address] George Martinez MD [facility] [place] [address] Jermain Saravia MD [address] [place] [id number] Abdominal pain, generalized (Primary Dx) Discharge [...] drink first t 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 * Abdominal Pain, Adult (Danish) documented in this encounter Medications at Time of Discharge pantoprazole (Protonix) 40 MG EC tablet Take 1 tablet (40 mg) by mouth 1 (one) time each day. Do not crush, chew, or split. lactulose (Chronulac) 10 GM/15ML solution Take 30 mL (20 g) by mouth 1 (one) time each day. 900 mL 09/21/2022 10/22/19 metoclopramide (Reglan) 10 MG tablet Take 1 tablet (10 mg) by mouth 4 (four) times a day for 10 days. 40 tablet 10/15/2022 09/02/20 23 acetaminophen (Tylenol) 500 MG tablet Take [...] Provider Notes - George Martinez MD - 10/15/2022 9:51 PM EDT Images from the original note were not included. - HPI Chief Complaint Patient presents with Abdominal Pain HPI Patient is a 36-year-old female well known to this emergency department for frequent visits for acute on chronic abdominal pain frequently related to pancreatitis presenting today with epigastric andleft upper quadrant pain that is been ongoing for the last week. Patient states that symptoms have not changed since they started 1 week ago. Associated with nausea vomiting and difficulty keeping anything down as well as diarrhea. Nonbloody nonbilious diarrhea or vomiting.. She has been in and outof ERs with visits noted at [facility] as well as at [facility] 5 days ago which is her last visit. On previous visits patient has been give opiate medication and has improved enough to go home. Previous review of chart indicates that patient has long history of drug-seeking behaviors. Patient is not having fevers is not actively vomiting when assess No data recorded Patient History Past Medical [...] for appetite change, chills and fever. HENT: Negative. Negative for congestion and rhinorrhea. Eyes: Negative. Respiratory: Negative. Cardiovascular: Negative. Gastrointestinal: Positive for abdominal pain, diarrhea, nausea and vomiting. Genitourinary: Negative. Negative for difficulty urinating, dysuria, enuresis and flank pain. Musculoskeletal: Negative. Skin: Negative. Neurological: Negative. Physical Exam ED Triage Vitals [10/15/22 2204] Temp Heart Rate Resp BP 36.9 ??C (98.4 ??F) (!) 128 18 138/80 SpO2 Temp Source Heart Rate Source Patient [...] Course & MDM Clinical Impressions as of 10/15/22 2353 Abdominal pain, generalized Medical Decision Making Lila Mcnally is a 36 yrs old female presents today for Chief Complaint Patient presents with Abdominal Pain . ED Course Narrative: Patient is a 36-year-old female with a presentation today for epigastric and left upper quadrant pain. This is similar to patient's previous pain episodes and she has frequent visits to [facility] as well as other emergency rooms in [facility]. She is well known to seek pain medication from multiple places for her acute on chronic pain episodes. Suspect that she is having episode of acute flare of chronic pancreatitis. Elected to get labs. Patient was set expectations that shewould be receiving 1 round of pain medication before trying a by mouth challenge after fluid bolus and labs obtained. Patient given 0.5 mg of dilaudid and nausea medication and had some improvement of her symptoms. Labs notable for mildly elevated lipase. Otherwise labs reassuring. Normal CBC, mildly diminished magnesium and potassium not requiring repletion on today's evaluation. Patient was signed out to the oncoming physician pending completion of by mouth challenge. likely discharge Additional MDM Based on her history and physical exam, my differential diagnosis included several life threateningconditions including pancreatitis, gastritis, chronic abdominal pain. Ruling out the most morbid conditions drove my clinical assessment. In order to fully explore differential these tests and treatments were ordered. Orders Placed This Encounter Procedures CMP Magnesium Lipase CBC w/diff Medications HYDROmorphone (Dilaudid) injection 0.5 mg (0.5 mg Intravenous Given 10/15/222228) sodium chloride 0.9 % infusion 1,000 mL (0 mL Intravenous Stopped 10/15/222351) metoclopramide (Reglan) injection 10 mg (10 mg Intravenous Given 10/15/222228) Old records for this patient including A Discharge Summary from September 27 2022 from [facility] were reviewed and found to be pertinent. Records review indicates that patient had multiple visits at the beginning of the month in which she signed out when she was told she would not be receiving dilaudid . It should be noted that her chronic conditions includes chronic pancreatitis, which currently is not at goal therapy. This complicates her clinical picture because it may be exacerbating symptoms. Patient reevaluated after treatments provided and condition improved with medications given. Based on work up today patient did not require consult with any service. Ultimately, [facility] Patient care assumed by oncoming physician at shift change, tentative plan at the timeof sign-out was await completion of po challenge and likely d/c ED Prescriptions None Discharge References/Attachments Abdominal Pain, Adult (Danish) Disposition Discharge Follow-Ups Schedule an appointment with Elmo Escobar MD Go to [facility] Emergency Department (Emergency Medicine); If symptoms worsen Sign Off Checklist Clinical Impression: Complete ED Disposition: Complete - George Martinez MD 10/15/222352 * ED Triage Notes - Mayra Lovell RN - 10/15/2022 9:51 PM EDT Reports stabbing abd pain since last Thursday. Reports n/v/d * Progress Notes - Jermain Saravia MD - 10/15/2022 9:51 PM EDT I received sign-out and accepted care of this patient from the departing Dr Martinez at 2300. Please see the primary providers??? note for complete elements of the history, physical exam, and ED course. Illness Severity: Stable Patient Summary: Lila Mcnally is a 36 y.o. female with a PMHx of Past Medical History: Diagnosis Date Anxiety Arthritis Depression Fibromyalgia GERD (gastroesophageal reflux disease) Hypertension Nicotine dependence Obesity Pancreatitis presented to the ED w/ exacerbation of chronic abd pain. Most recent vital signs: Visit Vitals BP 130/78 Pulse 98 Temp 36.9 ??C (98.4 ??F) (Oral) Resp 16 Wt 114 kg (252 lb) SpO2 94% BMI 41.93 kg/m?? OB Status Having periods Smoking Status Every Day BSA 2.29 m?? Lab and imaging results: nonactionable Action plan (To Do): pain controlled. PO challenged. Pt tolerated PO, appropriate for dc Disposition: dc Clinical Impressions as of 10/16/22 0005 Abdominal pain, generalized - documented in this encounter Plan of Treatment Not on file documented as of this encounter Procedures Procedure Name Priority Date/Time Associated Diagnosis Comments CBC WITH AUTO DIFFERENTIAL STAT 10/15/2022 10:29 PM EDT MAGNESIUM, PLASMA STAT 10/15/2022 10: 29 PM EDT LIPASE, PLASMA STAT 10/15/2022 10:29 PM EDT COMPREHENSIVE METABOLIC PANEL, PLASMA STAT 10/15/2022 10:29 PM EDT documented in this encounter Results * (ABNORMAL) CBC w/diff (10/15/2022 10:29 PM EDT) WBC Count 7.09 3.70 - 10.30 10*3/uL LAB HEMATOLOGY METHOD 10/15/2022 10:33 PM EDT [facility] RBC Count 4.27 3.90 - 5.20 10*6/uL LAB HEMATOLOGY METHOD 10/15/2022 10:33 PM EDT [facility] HGB 11.4 11.2 - 15.7 g/dL LAB HEMATOLOGY METHOD 10/15/2022 10:33 PM EDT [facility] HCT 35.0 34.0 - 45.0 % LAB HEMATOLOGY METHOD 10/15/2022 10:33 PM EDT [facility] Platelet Count 214 155 - 369 10*3/uL LAB HEMATOLOGY METHOD 10/15/2022 10:33 PM EDT [facility] MCV 82 79 - 98 fL LAB HEMATOLOGY METHOD 10/15/2022 10:33 PM EDT [facility] MCH 26.7 26.0 - 32.0 pg LAB HEMATOLOGY METHOD 10/15/2022 10:33 PM EDT [facility] MCHC 32.6 30.7 - 35.5 g/dL LAB HEMATOLOGY METHOD 10/15/2022 10:33 PM EDT [facility] RDW 15.7(H) 11.5 - 14.5 % LAB HEMATOLOGY METHOD 10/15/2022 10:33 PM EDT [facility] MPV 9.7 8.8 - 12.5 fL LAB HEMATOLOGY METHOD 10/15/2022 10:33 PM EDT [facility] nRBC 0.0 <=0.0 per 100 WBCs LAB HEMATOLOGY METHOD 10/15/2022 10:33 PM EDT [facility] Differential Type Automated LAB HEMATOLOGY METHOD 10/15/2022 10:33 PM EDT [facility] Neutrophils % 57.0 % LAB HEMATOLOGY METHOD 10/15/2022 10:33 PM EDT [facility] Lymphocytes % 32.0 % LAB HEMATOLOGY METHOD 10/15/2022 10:33 PM EDT [facility] Monocytes % 8.0 % LAB HEMATOLOGY METHOD 10/15/2022 10:33 PM EDT [facility] Eosinophils % 1.0 % LAB HEMATOLOGY METHOD 10/15/2022 10:33 PM EDT [facility] Basophils % 1.0 % LAB HEMATOLOGY METHOD 10/15/2022 10:33 PM EDT [facility] Immature Granulocytes % 1.0 % LAB HEMATOLOGY METHOD 10/15/2022 10:33 PM EDT [facility] Neutrophils Absolute 4.07 1.60 - 6.10 10*3/uL LAB HEMATOLOGY METHOD 10/15/2022 10:33 PM EDT [facility] Lymphocytes Absolute 2.28 1.20 - 3.90 10*3/uL LAB HEMATOLOGY METHOD 10/15/2022 10:33 PM EDT [facility] Monocytes Absolute 0.54 0.30 - 0.90 10*3/uL LAB HEMATOLOGY METHOD 10/15/2022 10:33 PM EDT [facility] Eosinophils Absolute 0.10 0.00 - 0.50 10*3/uL LAB HEMATOLOGY METHOD 10/15/2022 10:33 PM EDT [facility] Basophils Absolute 0.06 0.00 - 0.10 10*3/uL LAB HEMATOLOGY METHOD 10/15/2022 10:33 PM EDT [facility] Immature Granulocytes Absolute 0.04 0.00 - 0.06 10*3/uL LAB HEMATOLOGY METHOD 10/15/2022 10:33 PM EDT [facility] Blood Venous blood specimen / Unknown Venipuncture / Unknown 10/15/2022 10:29 PM EDT 10/15/2022 10:31 PM EDT Narrative [facility] - 10/15/2022 10:33 PM EDT Therapeutic decision making should be based on absolute values, rather than percentages. George Martinez MD LAB BLOOD ORDERABLES Final Result Performing Organization Address City/[facility]/ZIP Co de Phone Number [facility] [address] [place] [address] * (ABNORMAL) Lipase (10/15/2022 10:29 PM EDT) Lipase, Plasma 99(H) 19 - 63 U/L 10/15/2022 10:51 PM EDT [facility] Blood Venous blood specimen / Unknown Venipuncture / Unknown 10/15/2022 10:29 PM EDT 10/15/2022 10:31 PM EDT George Martinez MD LAB BLOOD ORDERABLES Final Result Performing Organization Address City/[facility]/ZIP Co de Phone Number [facility] [address] [place] [address] * (ABNORMAL) Magnesium (10/15/2022 10:29 PM EDT) Magnesium, Plasma 1.8(L) 1.9 - 2.4 mg/dL 10/15/2022 10:51 PM EDT [facility] Blood Venous blood specimen / Unknown Venipuncture / Unknown 10/15/2022 10:29 PM EDT 10/15/2022 10:31 PM EDT George Martinez MD LAB BLOOD ORDERABLES Final Result [facility] [address] [place] [address] * (ABNORMAL) CMP (10/15/2022 10:29 PM EDT) Glucose, Plasma 110(H) 74 - 99 mg/dL 10/15/2022 10:51 PM EDT [facility] BUN, Plasma 9 7 - 21 mg/dL 10/15/2022 10:51 PM EDT [facility] Creatinine, Plasma 0.61 0.60 - 1.10 mg/dL 10/15/2022 10:51 PM EDT [facility] BUN/Creatinine Ratio 15 10/15/2022 10:51 PM EDT [facility] Sodium, Plasma 137 136 - 145 mmol/L 10/15/2022 10:51 PM EDT [facility] Potassium, Plasma 3.5(L) 3.7 - 4.8 mmol/L 10/15/2022 10:51 PM EDT [facility] Chloride, Plasma 105 97 - 107 mmol/L 10/15/2022 10:51 PM EDT [facility] CO2, Plasma 17(L) 22 - 29 mmol/L 10/15/2022 10:51 PM EDT [facility] Anion Gap 15 6 - 16 mmol/L 10/15/2022 10:51 PM EDT [facility] Total Calcium, Plasma 8.7(L) 8.9 - 10.2 mg/dL 10/15/2022 10:51 PM EDT [facility] Total Protein 6.8 6.3 - 7.9 g/dL 10/15/2022 10:51 PM EDT [facility] Albumin, Plasma 4.2 3.5 - 5.2 g/dL 10/15/2022 10:51 PM EDT [facility] AST, Plasma 15 11 - 32 U/L 10/15/2022 10:51 PM EDT [facility] ALT, Plasma 19 8 - 33 U/L 10/15/2022 10:51 PM EDT [facility] Alkaline Phosphatase, Plasma 85 35 - 104 U/L 10/15/2022 10:51 PM EDT [facility] Total Bilirubin, Plasma <0.2(L) 0.2 - 1.1 mg/dL 10/15/2022 10:51 PM EDT [facility] eGFRcr 119.7 mL/min/1.7 3m*2 10/15/2022 10:51 PM EDT [facility] Comment:Reported eGFRcr in m L/min/1.73m2 is based the CKD-EPI 2020 equation that does not use a race coefficient. Blood Venous blood specimen / Unknown Venipuncture / Unknown 10/15/2022 10:29 PM EDT 10/15/2022 10:31 PM EDT us George Martinez MD LAB BLOOD ORDERABLES Final Result Performing Organization Address City/State/[facility] Co de Phone Number [facility] [address] [place] [phone] documented in this encounter Visit Diagnoses Diagnosis Abdominal pain, generalized- Primary documented in this encounter Administered Medications Inactive Administered Medications - up to 3 most recent administrations Medication Order MAR Action Action Date Dose Rate Site HYDROmorphone (Dilaudid) injection 0.5 mg 0.5 mg, Intravenous, Once, 1 dose, On Thu10/15/22 at 2205, Routine Given 10/15/2022 10:29 PM EDT 0.5 mg metoclopramide (Reglan) injection 10 mg 10 mg, Intravenous, Once, 1 dose, On Thu10/15/22 at 2205, STAT Given 10/15/2022 10:29 PM EDT 10 mg sodium chloride 0.9 % infusion 1,000 mL 1,000 mL, Intravenous, Once, 1 dose, On Thu10/15/22 at 2205, STAT New Bag 10/15/2022 10:29 PM EDT 1,000 mL documented in this encounter Active and Recently Administered Medications Times are shown in EDT. Scheduled Medication Order 10/14/2022 10/15/2022 10/16/2022 HYDROmorphone (Dilaudid) injection 0.5 mg (COMPLETED) 0.5 mg, Intravenous, Once, 1 dose, On Thu10/15/22 at 2205, Routine 2229 (Given - Provider: Aly Wade) metoclopramide (Reglan) injection 10 mg (COMPLETED) 10 mg, Intravenous, Once, 1 dose, On Thu10/15/22 at 2205, STAT 2229 (Given - Provider: Aly Wade) sodium chloride 0.9 % infusion 1,000 mL (COMPLETED) 1,000 mL, Intravenous, Once, 1 dose, On Thu10/15/22 at 2205, STAT 2229 (New Bag - Provider: Afia Wade)2352 (Stopped - Provider: Afia Wade) documented in this encounter Additional Health Concerns Assessment Noted Time A fall risk assessment has been complete d for the patient 11/21/2020 2:30 PM EDT documented as of this encounter Care Teams Auto Parts Manager Relationship Specialty Start Date End Date Elmo Escobar MD PCP - General 10/18/20 01/05/23 documented as of this encounter
--- OUTSIDE RECORDS SUMMARY | 2024-02-03 15:19 | XMS_ITS | Encounter Summary ---
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
--- OUTSIDE RECORDS SUMMARY | 2024-02-03 15:19 | XMS_ITS | Encounter Summary ---
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 Name Role Phone Elmo Escobar MD Primary Care Provider [phone] Reason for Referral * Consultation (Urgent) - Authorized Specialty Diagnoses / Procedures Referred By Susy burks Referred To Contact Gastroenterology Diagnoses Abdominal pain, generalized Chronic pancreatitis, unspecified pancreatitis type (CMS/HCC) Miguelito Joe MD [address] [place] [address] Phone: tel: fax: Referral ID Status Reason Start Date Expiration Date Visits Requested Visits Authorized [id number] Authorized Specialty Services Required 09/27/2022 03/28/2024 1 1 Scheduling Instructions Chronic pancreatitis Reason for Visit * Reason Comments Abdominal Pain Vomiting * Auth/Cert (Routine) Specialty Diagnoses / Procedures Referred By Susy burks Referred To Contact Diagnoses Acute on chronic pancreatitis (CMS/HCC) Aysha Leija MD [address] [place] [address] Phone: tel: fax: [facility] [address] [place] [address] Phone: tel: Referral ID Status Reason Start Date Expiration Date Visits Re quested Visits Authorized [id number] 1 1 Encounter Details Date Type Department Care Team (Late st Contact Info) Description 09/27/2022 2:44 AM EDT - 09/27/2022 9:45 AM EDT Emergency [facility] [address] [place] [address] Zana Orr MD [address] [place] [address] Miguelito Joe MD [address] [place] [address] Abdominal pain, generalized (Primary Dx); Vomiting and diarrhea; Chronic pancreatitis, unspecified pancreatitis type (CMS/HCC); Generalized anxiety disorder; Maladaptive health behaviors affecting medical condition Discharge Disposition: Home or Self Care Social [...] first t 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) to steady your nerves or to [...] Sign Reading Time Taken Comments Blood Pressure 172/105 09/27/2022 6:05 AM EDT rn aware of elevated bp Pulse 102 09/27/2022 6:05 AM EDT Temperature 36.3 ??C (97.4 ??F) 09/27/2022 2 :42 AM EDT Respiratory Rate 26 09/27/2022 2:42 AM EDT Oxygen Saturation 97% 09/27/2022 7:3 0 AM EDT Inhaled Oxygen Concentration - - Weight 114 kg (252 lb) 09/27/2022 3:01 AM EDT Height 165.1 cm (5' 5 ) 09/27/2022 3:01 AM EDT Body Mass Index 41.93 09/27/2022 3:01 AM EDT documented in this encounter Discharge Instructions * Discharge Instructions* Francesca Perdomo MD - 09/27/2022 9:08 AM EDT Follow up with PCP Dr Escobar in 2-3 days Establish with GI clinic in referral made Establish in Pain clinic * Attachments The following attachments cannot be sent through Care Everywhere. * Pancreatitis, Chronic, Discharge Instructions for (Uzbek) documented in this encounter Medications at Time [...] encounter Miscellaneous Notes * Discharge Summary - Francesca Perdomo MD - 09/27/2022 9:23 AM EDT Images from the original note were not included. Hospitalization Admit Date/Time: 09/27/2022 2:44 AM Admitting Attending: Discharge Date: 09/27/2022 Discharge Attending Physician: Miguelito Joe MD PCP name and Address: Elmo Escobar MD [address] [facility] [address] Referring provider name and address: No referring provider defined for this encounter. Chief Concern, Brief History of Present Illness, and Hospital Course Lila Mcnally is a 36 y.o. female with PMH of chronic pancreatitis, gastritis, anxiety, fibromyalgia presenting with epigastric abdominal pain. CT A/P from 09/19 no evidence of pancreatic lesions. Lipase levels mildly elevated, although lipase levels are not a marker of chronic pancreatitis. Uncontrolled epigastric pain DDx -: Dietary non compliance, uncontrolled ARTIS, conversion disorder, drug seeking behavior Explained to patient using opioids are not the best treatment for chronic pancreatitis since they decrease peristalsis. Counseled on improving diet. After taking oxycodone patient asked to go home. Instructed patient to follow with GI, she requested to transfer to GI. Reiterated she needs to go home on a low fat diet. Surgeries and Procedures Medication List . acetaminophen [...] by mouth 1 (one) time each day. ibuprofen 200 MG tablet Take 3 tablets (600 mg) by mouth every 6 (six) hours if needed for mild pain. lactulose 10 GM/15ML solution Commonly known as: Chronulac Take 30 mL (20 g) by mouth 1 (one) time each day. levoFLOXacin 750 MG tablet Commonly known as: Levaquin Take 1 tablet (750 mg) by mouth 1 (one) time each day for 5 days. Ask about: Should I take this medication? naloxone 4 mg/0.1 mL nasal spray Commonly known as: Narcan 1. Give 1 spray in nostril for no/slow breathing or cannot wake after opioid use 2. Call 911 3. Repeat in other nostril if symptoms continue Call 911. Give 4 mg (1 spray) into one nostril. Repeat every 2-3 minutes as needed, alternating nostrils, until medical assistance arrives. ondansetron ODT 4 MG disintegrating tablet Commonly known as: Zofran-ODT Take 1 tablet (4 mg) by mouth every 8 (eight) hours if needed for nausea or vomiting. pantoprazole 40 MG EC tablet Commonly known [...] if needed for nausea or vomiting. promethazine 25 MG tablet Commonly known as: Phenergan Take 1 tablet (25 mg) by mouth every 8 (eight) hours if needed for nausea or vomiting for up to 11 doses. vitamin C 250 MG tablet Take 1 tablet (250 mg) by mouth 1 (one) time each day. Discharge Diagnosis Medical Problems Post Discharge Instructions Follow with GI, Pain clinic Continue low fat diet Outpatient Follow-Up Future Appointments Date Time Provider Department Center 11/07/2022 9:30 AM [facility] Results Pending At Discharge Pending Labs Order Current Status OXYCODONE CONFIRMATION,URINE In process THC Urine Confirm LCMSMS In process Pertinent Physical Exam At Time of Discharge See HP Discharge Disposition/Condition Disposition: Home Condition: Stable (s/sx potential problems absent or manageable) Francesca Man Internal Medicine Pediatrics PGY-4 Pager [phone] Cosigned by Miguelito Joe MD at 09/28/2022 7:03 PM EDT Associated attestation - Miguelito Joe MD - 09/28/2022 7:03 PM EDT I saw and evaluated the patient with the resident/fellow. I discussed the case with the resident/fellow and agree with the findings and plan as documented. I spent 31 minutes of patient care and instruction time in preparation for this discharge. * H&P - Francesca Perdomo MD - 09/27/2022 8:00 AM EDT Images from the original note were not included. Chief Concern & History Of Present Illness Lila Mcnally is a 36 y.o. female with PMH of chronic pancreatitis, gastritis, anxiety, fibromyalgia presenting with epigastric abdominal pain. Patient has had numerous admissions due to uncontrolled pain in the setting of chronic pancreatitis. Imaging has not been consistent with chronic pancreatitis. She was recently discharged from [facility] in June with creon supplements and started on amitriptyline due to concerns for severe anxiety causing most of her pain. Patient has not been compliant with diet and stopped taking amitriptyline because it makes her shaky . Patient was admitted on August due to bacterial PNEUMONIA, during admissionPalliative was consulted due to concerns of OPIOID USE DISORDER. She was slowly weaned and discharged. However patient reports eating high fat meals during subsequent days and came back to the ED on 09/25. Patient at that time complained of diarrhea, vomiting and stabbing pain. She was admitted [facility]to [facility] with a pain regimen that consisted of oxycodone 5 mg PO q 4 PRN + hydromorphone 0.5 mg IVP q4 PRN + acetaminophen 500 mg PO q 4 PRN. On second day of admission dilaudid was decreased to 0.25 mg and patient left AMA came to [facility] ED. In the ED patient noticed to be hypertensive 172/105, tachycardic to 127. UDS positive for THC and oxycodone. Lipase was 67. Chronic mild transaminitis noted in labs. CT A/P not obtained since last on 09/19 was not suggestive of pancreatitis. Patient tearful during interview, reports everyone assumes she is addicted to dilaudid, reports toradol is not enough for her pain control. Follows with GI at [facility] however he only prescribes PPIs and not pain medications. Reports she is going to establish care with pain clinic. Past Medical History She has a past medical history of Anxiety, Arthritis, Depression, Fibromyalgia, GERD (gastroesophageal reflux disease), Hypertension, Nicotine dependence, Obesity, and Pancreatitis. Surgical History She has a past surgical history that includes Cholecystectomy; ERCP; Esophagogastroduodenoscopy; and Hand surgery. Family History Family History Problem Relation [...] International Travel History: Travel Screening Question Response In [...] last month? No Travel History Travel since 08/27/22 No documented travel since 08/27/22 Immunizations VACCINE/DOSE DATE DATE DATE Flu 11/21/2019 12/27/2020 01/20/2022 Tetanus 06/25/2021 Pneumovax Shingles Allergies Droperidol and Tramadol Medications Current Facility-Administered Medications Medication Dose Route Frequency Provider Last Rate Last Admin acetaminophen (Tylenol) tablet 650 mg 650 mg Oral q4h PRN Francesca Perdomo MD ketorolac (Toradol) injection 30 mg 30 mg Intravenous q6h PRN Francesca Perdomo MD ondansetron (Zofran) injection 4 mg 4 mg Intravenous q6h PRN Francesca Perdomo MD oxyCODONE (Roxicodone) immediate release tablet 5 mg 5 mg Oral q4h PRN Francesca Perdomo MD Current Outpatient Medications Medication Sig Dispense Refill acetaminophen (Tylenol) 500 MG tablet Take 2 tablets (1,000 mg) by mouth every 6 (six) hours if needed for pain. amitriptyline (Elavil) 25 MG tablet Take 1 tablet (25 mg) by mouth every night. (Patient not taking: Reported on 09/26/2022) 30 tablet 11 Ascorbic Acid (vitamin C) 250 MG tablet Take 1 tablet (250 mg) by mouth 1 (one) time each day. cholecalciferol (Vitamin D-3) 50 MCG (2000 UT) capsule Take 1 capsule (2,000 Units) by mouth 1 (one) time each day. cyanocobalamin 1000 MCG tablet Take 1 tablet (1,000 mcg) by mouth 1 (one) time each day. ibuprofen 200 MG tablet Take 3 tablets (600 mg) by mouth every 6 (six) hours if needed for mild pain. lactulose (Chronulac) 10 GM/15ML solution Take 30 mL (20 g) by mouth 1 (one) time each day. 900 mL 0 naloxone (Narcan) 4 mg/0.1 mL nasal spray 1. Give 1 spray in nostril for no/slow breathing or cannot wake after opioid use 2. Call 911 3. Repeat in other nostril if symptoms continue Call 911. Give 4mg (1 spray) into one nostril. Repeat every 2-3 minutes as needed, alternating nostrils, until medical assistance arrives. 1 each 11 ondansetron ODT (Zofran-ODT) 4 MG disintegrating tablet Take 1 tablet (4 mg) by mouth every 8 (eight) hours if needed for nausea or vomiting. pantoprazole (Protonix) 40 MG EC tablet Take [...] for up to 11 doses. 11 tablet 0 Review of Systems All other systems reviewed and are negative. Physical Exam Constitutional: General: She is in acute distress. Appearance: She is obese. She is not ill-appearing, toxic-appearing or diaphoretic. HENT: Head: Normocephalic and atraumatic. Eyes: Extraocular Movements: Extraocular movements intact. Cardiovascular: Rate and Rhythm: Normal rate and regular rhythm. Heart sounds: No murmur heard. Pulmonary: Effort: Pulmonary effort is normal. Breath sounds: Normal breath sounds. Abdominal: General: Bowel sounds are normal. There is no distension. There are no signs of injury. Palpations: Abdomen is soft. There is no shifting dullness. Tenderness: There is abdominal tenderness in the epigastric area and periumbilical area. There is no guarding. Negative signs include Carlson's sign. Hernia: No hernia is present. Neurological: General: No focal deficit present. Mental Status: She is alert and oriented to person, place, and time. Psychiatric: Mood and Affect: Mood is anxious. Comments: Tearful Last Recorded Vitals Blood pressure (!) 172/105, pulse 102, temperature 36.3 ??C (97.4 ??F), temperature source Oral, resp. rate 26, height 1.651 m (5' 5 ), weight 114 kg (252 lb), SpO2 97 %, not currently . Relevant Results Labs in last 18 hours CBC WBC 6.52 Hb 11.5 Plt 296 Hct 36.1 ANC 3.19 INR ??, PTT ??, Anti-Xa ?? BMP Na 139 Cl 101 BUN 4 (L) Glu 106 (H) K 3.8 Co2 23 Cr 0.57 (L) Ca 8.7 (L) iCa ?? Mg 2.3, Phos ?? Lactate ?? LFT AST 33 (H) AlkPhos 113 (H) T Prot 7.1 ALK 43 (H) Bili 0.3 Alb ?? D.Bili ?? CT abdomen: 09/19 : Diffuse decrease in attenuation of the liver, compatible with hepatic steatosis.No suspicious hepatic lesions. Prior cholecystectomy. No dilation of the intra and extrahepatic biliary ducts. Homogeneous enhancement of the pancreas is observed without evidence of focal lesions orpancreatic duct dilatation. The spleen is mildly enlarged in AP dimension measuring 13.6 cm. The adrenal glands are normal morphologically. No suspicious renal lesions observed. No nephrolithiasis orhydroureteronephrosis. Assessment/Plan Active Problems: There are no active Hospital Problems. Lila Mcnally is a 36 y.o. female with PMH of chronic pancreatitis, gastritis, anxiety, fibromyalgia presenting with epigastric abdominal pain. CT A/P from 09/19 no evidence of pancreatic lesions. Lipase levels mildly elevated, although lipase levels are not a marker of chronic pancreatitis. Uncontrolled epigastric pain DDx -: Dietary non compliance, uncontrolled ARTIS, conversion disorder, drug seeking behavior Explained to patient using opioids are not the best treatment for chronic pancreatitis since they decrease peristalsis. Counseled on improving diet. Plan - Pain controlled with Tylenol, Toradol, Oxycodone 5 mg - Continue IVFs for Bowel rest - Will monitor on OBS for pain improvement - Follows with GI at [facility]. #Hepatic steatosis Continue to monitor outpatient #HTN Elevated BP in the past, patient refused to start medical treatment PCP to follow Francesca Man Internal Medicine Pediatrics PGY-4 Pager [phone] Cosigned by Miguelito Joe MD at 09/28/2022 7:02 PM EDT Associated attestation - Miguelito Joe MD - 09/28/2022 7:02 PM EDT I saw and evaluated the patient with the resident/fellow. I discussed the case with the resident/fellow and agree with the findings and plan as documented. I personally spent a total of 31 minutes on this encounter. This time includes face to face with patient, counseling, and discussion and/or coordination of care. * ED Notes - Chantal Marks - 09/27/2022 2:50 AM EDT Pt reports that [facility] was giving her very low doses of dilaudid and toradol which did not control the pain. Reports crying in pain for days while admitted there. Pt looking for pain relief. Chantal Marks 09/27/22 0252 * ED Provider Notes - Edgar Peck MBBS - 09/27/2022 2:40 AM EDT - HPI Chief Complaint Patient presents with ??? Abdominal Pain ??? Vomiting HPI Patient is a 36yo F, with an extensive history of chronic pancreatitis s/p ERCP, the patient was admitted to the hospital 1 week ago returned home, and then ate steak and taco stahl on (2 days ago) which worsened her epigastric pain leading her to [facility] where she was admitted for intractable pain. The patient states that she left AMA today to come here as she had a disagreement with the admitting doctor who lowered her Dilaudid from 0.5mg to 0.25mg and she did not think she was receiving adequate pain management. The patient states that she is currently nauseous and in pain. The patient saw her Pmd prior to going to and was given five 5mg Oxycodone Po. Denies any fever, chills, chest pain or palpitations Jo Coma Scale Score: 15 Patient History Past Medical History: Diagnosis Date ??? Anxiety ??? Arthritis ??? Depression ??? Fibromyalgia ??? GERD (gastroesophageal reflux disease) ??? Hypertension ??? Nicotine dependence ??? Obesity ??? Pancreatitis Past Surgical History: Procedure Laterality Date ??? CHOLECYSTECTOMY ??? ERCP ??? ESOPHAGOGASTRODUODENOSCOPY ??? HAND SURGERY Family History Problem Relation Name Age of Onset ??? Hypertension Mother ??? No Known Problems Father Tobacco Use ??? Smoking status: Every Day Packs/day: 1.00 Years: 15.00 Total pack years: 15.00 Types: Cigarettes ??? Smokeless tobacco: Never Vaping Use ??? Vaping Use: Never used Substance Use Topics ??? Alcohol use: Not Currently ??? Drug use: Yes Types: Marijuana Comment: a few times a month Immunization History Immunization History: reviewed Allergies: Allergies Allergen Reactions ??? Droperidol Other Experienced an acute dystonic reaction treated with diphenhydramine ??? Tramadol Rash and Dizziness Patient described previously [...] are negative. Physical Exam ED Triage Vitals [09/27/22 0242] Temp Heart Rate Resp BP 36.3 ??C (97.4 ??F) (!) 127 26 (!) 144/96 SpO2 Temp Source Heart Rate Source Patient [...] Normal breath sounds. Abdominal: General: Abdomen is protuberant. Palpations: Abdomen is soft. Tenderness: There is abdominal tenderness (mild to moderate, slightly distractable) in the epigastric area. There is no right CVA tenderness, left CVA tenderness, guarding or rebound. Musculoskeletal: General: No swelling. Cervical back: Neck supple. Skin: General: Skin is warm and dry. Capillary Refill: Capillary refill takes less than 2 seconds. Neurological: Mental Status: She is alert. Psychiatric: Mood and Affect: Mood normal. ED Course & MDM Patient treated with Acetaminophen 650mg PO, Famotidine 20mg IVP, Ketorolac 30mg IVP, Lactated Ringer's 1L IVFB, Oxcodone 5mg PO. Lab results personally reviewed by me. Clinical Impressions as of 09/30/22 1226 Abdominal pain, generalized Vomiting and diarrhea Chronic pancreatitis, unspecified pancreatitis type (CMS/HCC) Generalized anxiety disorder Maladaptive health behaviors affecting medical condition Lactate 3.2 and Lipase 67. Patient treated with additional lactated ringers 1L IVFB, Morphine 4mg IVP, and Zofran 4mg IVP. On re-evaluation the patient is resting in bed and somnolent, improved abdominal tenderness, heart regular rate and rhythm. Medical Decision Making Patient is a 36yo F with a PMH of chronic pancreatitis who is non compliant with diet, reporting tot ED after leaving AMA from [facility] for pain management after she did not believe that the pain was being adequately managed. On examination the patient had mild/moderate epigastric tenderness that was slightly distractible. Based on physical examination, recent workup and hospital admission and lab results in the ED today the patient most likely has a continuation of a flair of chronic pancreatitis. No indication for repeat imaging as recently done scans showing no evidence of severe necrotizing pancreatitis and repeat lab work shows down trending lipase and improvement. Patient does have a behavior of noncompliance with dietary management. The patient was treated with tylenol, Lrs, morphine, famotidine, toradol, oxycodone and zofran. The patient had improvement in symptoms on my evaluation. The patient was offered discharge with pain medication or admission and would prefer to be admitted for further pain management. No imaging was done as the patient has had multiple workups over the past week and there has been no acute change in symptoms. Hence ED obs team was consulted for further evaluation this patient and management. ED Prescriptions None Clinical Impressions as of 09/30/22 1226 Abdominal pain, generalized Vomiting and diarrhea Chronic pancreatitis, unspecified pancreatitis type (CMS/HCC) Generalized anxiety disorder Maladaptive health behaviors affecting medical condition Sign Off Checklist Clinical Impression: Complete ED Disposition: Complete - Emigdio Mayer MD saw and evaluated the patient with the medical student. I discussed the case with the medical student and agree with the findings and plan as documented. I personally performed the Exam and Medical Decision Making. Edgar Peck MBBS Resident 09/30/22 1226 Cosigned by Zana Orr MD at 09/30/2022 1:22 PM EDT Associated attestation - Zana Orr MD - 09/30/2022 1:22 PM EDT I saw and evaluated the patient with the resident/fellow. I discussed the case with the resident/fellow and agree with the findings and plan as documented. * ED Triage Notes - George Aparicio RN - 09/27/2022 2:40 AM EDT Pt endorsing severe abd pain that radiates to her back. Pt has chronic pancreatitis, [facility] and diagnosed with a flare up however butted heads with the Dr and signed out AMA. documented in this encounter Plan of Treatment Scheduled Referrals Name Type Priority Associated Diagnoses Order Schedule Discharge Ambulatory referral to Gastroenterology Outpatient Referral Routine Abdominal pain, generalized Chronic pancreatitis, unspecified pancreatitis type (CMS/HCC) Expected: 09/27/2022 (Approximate), Expires: 03/30/2024 documented as of this encounter Procedures Procedure Name Priority Date/Time Associated Diagnosis Comments LACTATE, VENOUS STAT 09/27/2022 4:05 AM EDT CBC WITH AUTO DIFFERENTIAL STAT 09/27/2022 4:05 AM EDT LIPASE, PLASMA STAT Add-on 09/27/2022 4:05 AM EDT COMPREHENSIVE METABOLIC PANEL, PLASMA STAT 09/27/2022 4:05 AM EDT OXYCODONE CONFIRMATION,URINE STAT 09/27/2022 3:43 AM EDT DRUG ABUSE SCREEN, URINE STAT 09/27/2022 3:43 AM EDT THC URINE CONFIRM STAT 09/27/2022 3:4 3 AM EDT URINALYSIS WITH REFLEX MICROSCOPIC STAT 09/27/2022 3:34 AM EDT MAGNESIUM, PLASMA STAT Add-on 09/26/2022 9:1 4 PM EDT documented in this encounter Results * (ABNORMAL) Lipase (09/27/2022 4:05 AM EDT) Lipase, Plasma 67(H) 19 - 63 U/L 09/27/2022 5:24 AM EDT [facility] Blood Venous blood specimen / Unknown Venipuncture / Unknown 09/27/2022 4:05 AM EDT 09/27/2022 4:31 AM EDT us Zana Orr MD LAB BLOOD ORDERABLES Final Re sult Performing Organization Address [facility] Co de Phone Number [facility] [address] [place] [address] * (ABNORMAL) Lactic acid, venous (09/27/2022 4:05 AM EDT) Lactate, Venous, Whole Blood 3.2(H) 0.5 - 2.2 mmol/L LAB HEMATOLOGY METHOD 09/27/2022 4:12 AM EDT [facility] Blood Venous blood specimen / Unknown Venipuncture / Unknown 09/27/2022 4:05 AM EDT 09/27/2022 4:10 AM EDT us Zana Orr MD LAB BLOOD ORDERABLES Final Re sult Performing Organization Address [facility] de Phone Number [facility] [address] [place] [address] * (ABNORMAL) CMP (09/27/2022 4:05 AM EDT) Glucose, Plasma 106(H) 74 - 99 mg/dL 09/27/2022 5:06 AM EDT [facility] BUN, Plasma 4(L) 7 - 21 mg/dL 09/27/2022 5:06 AM EDT [facility] Creatinine, Plasma 0.57(L) 0.60 - 1.10 mg/dL 09/27/2022 5:06 AM EDT [facility] BUN/Creatinine Ratio 7 09/27/2022 5:06 AM EDT [facility] Sodium, Plasma 139 136 - 145 mmol/L 09/27/2022 5:06 AM EDT [facility] Potassium, Plasma 3.8 3.7 - 4.8 mmol/L 09/27/2022 5:06 AM EDT [facility] Chloride, Plasma 101 97 - 107 mmol/L 09/27/2022 5:06 AM EDT [facility] CO2, Plasma 23 22 - 29 mmol/L 09/27/2022 5:06 AM EDT [facility] Anion Gap 15 6 - 16 mmol/L 09/27/2022 5:06 AM EDT [facility] Total Calcium, Plasma 8.7(L) 8.9 - 10.2 mg/dL 09/27/2022 5:06 AM EDT [facility] Total Protein 7.1 6.3 - 7.9 g/dL 09/27/2022 5:06 AM EDT [facility] Albumin, Plasma 4.1 3.5 - 5.2 g/dL 09/27/2022 5:06 AM EDT [facility] AST, Plasma 33(H) 11 - 32 U/L 09/27/2022 5:06 AM EDT [facility] ALT, Plasma 43(H) 8 - 33 U/L 09/27/2022 5:06 AM EDT [facility] Alkaline Phosphatase, Plasma 113(H) 35 - 104 U/L 09/27/2022 5:06 AM EDT [facility] Total Bilirubin, Plasma 0.3 0.2 - 1.1 mg/dL 09/27/2022 5:06 AM EDT [facility] eGFRcr 121.7 mL/min/1.7 3m*2 09/27/2022 5:06 AM EDT [facility] Comment:Reported eGFRcr in m L/min/1.73m2 is based the CKD-EPI 2020 equation that does not use a race coefficient. Blood Venous blood specimen / Unknown Venipuncture / Unknown 09/27/2022 4:05 AM EDT 09/27/2022 4:31 AM EDT us Zana Orr MD LAB BLOOD ORDERABLES Final Re sult [facility] [address] [place] [id number] * (ABNORMAL) CBC w/diff (09/27/2022 4:05 AM EDT) WBC Count 6.52 3.70 - 10.30 10*3/uL LAB HEMATOLOGY METHOD 09/27/2022 4:15 AM EDT [facility] RBC Count 4.37 3.90 - 5.20 10*6/uL LAB HEMATOLOGY METHOD 09/27/2022 4:15 AM EDT [facility] HGB 11.5 11.2 - 15.7 g/dL LAB HEMATOLOGY METHOD 09/27/2022 4:15 AM EDT [facility] HCT 36.1 34.0 - 45.0 % LAB HEMATOLOGY METHOD 09/27/2022 4:15 AM EDT [facility] Platelet Count 296 155 - 369 10*3/uL LAB HEMATOLOGY METHOD 09/27/2022 4:15 AM EDT [facility] MCV 83 79 - 98 fL LAB HEMATOLOGY METHOD 09/27/2022 4:15 AM EDT [facility] MCH 26.3 26.0 - 32.0 pg LAB HEMATOLOGY METHOD 09/27/2022 4:15 AM EDT [facility] MCHC 31.9 30.7 - 35.5 g/dL LAB HEMATOLOGY METHOD 09/27/2022 4:15 AM EDT [facility] RDW 15.2(H) 11.5 - 14.5 % LAB HEMATOLOGY METHOD 09/27/2022 4:15 AM EDT [facility] MPV 9.6 8.8 - 12.5 fL LAB HEMATOLOGY METHOD 09/27/2022 4:15 AM EDT [facility] nRBC 0.0 <=0.0 per 100 WBCs LAB HEMATOLOGY METHOD 09/27/2022 4:15 AM EDT [facility] Differential Type Automated LAB HEMATOLOGY METHOD 09/27/2022 4:15 AM EDT [facility] Neutrophils % 49.0 % LAB HEMATOLOGY METHOD 09/27/2022 4:15 AM EDT [facility] Lymphocytes % 40.0 % LAB HEMATOLOGY METHOD 09/27/2022 4:15 AM EDT [facility] Monocytes % 7.0 % LAB HEMATOLOGY METHOD 09/27/2022 4:15 AM EDT [facility] Eosinophils % 1.0 % LAB HEMATOLOGY METHOD 09/27/2022 4:15 AM EDT [facility] Basophils % 1.0 % LAB HEMATOLOGY METHOD 09/27/2022 4:15 AM EDT [facility] Immature Granulocytes % 2.0 % LAB HEMATOLOGY METHOD 09/27/2022 4:15 AM EDT [facility] Neutrophils Absolute 3.19 1.60 - 6.10 10*3/uL LAB HEMATOLOGY METHOD 09/27/2022 4:15 AM EDT [facility] Lymphocytes Absolute 2.60 1.20 - 3.90 10*3/uL LAB HEMATOLOGY METHOD 09/27/2022 4:15 AM EDT [facility] Monocytes Absolute 0.47 0.30 - 0.90 10*3/uL LAB HEMATOLOGY METHOD 09/27/2022 4:15 AM EDT [facility] Eosinophils Absolute 0.09 0.00 - 0.50 10*3/uL LAB HEMATOLOGY METHOD 09/27/2022 4:15 AM EDT [facility] Basophils Absolute 0.07 0.00 - 0.10 10*3/uL LAB HEMATOLOGY METHOD 09/27/2022 4:15 AM EDT [facility] Immature Granulocytes Absolute 0.10(H) 0.00 - 0.06 10*3/uL LAB HEMATOLOGY METHOD 09/27/2022 4:15 AM EDT [facility] Blood Venous blood specimen / Unknown Venipuncture / Unknown 09/27/2022 4:05 AM EDT 09/27/2022 4:11 AM EDT [facility] - 09/27/2022 4:15 AM EDT Therapeutic decision making should be based on absolute values, rather than percentages. us Zana Orr MD LAB BLOOD ORDERABLES Final Re sult [facility] [address] [place] [address] * (ABNORMAL) OXYCODONE CONFIRMATION,URINE (09/27/2022 3:43 AM EDT) Oxycodone 803(H) <50 ng/mL 09/29/2022 11:50 AM EDT [facility] Oxymorphone <50 <50 ng/mL 09/29/2022 11:50 AM EDT [facility] Oxymorphone Glucuronide >1,000(H) <50 ng/mL 09/29/2022 11:50 AM EDT [facility] Urine Urine specimen obtained by clean catch procedure / Unknown Non-blood Collection / Unknown 09/27/2022 3:43 AM EDT 09/27/2022 3:56 AM EDT [facility] - 09/29/2022 11:50 AM EDT Test performed by LC-MS/MS at the [facility]. This test was developed and its performance characteristics determined by [facility]. It has not been cleared or approved by the FDA. The laboratory is regulated under CLIA as qualified to perform high-complexity testing. This test is used for clinical purposes. Zana Orr MD LAB URINE ORDERABLES Final Re sult Performing Organization Address [facility] de Phone Number [facility] [address] [place] [address] * (ABNORMAL) THC Urine Confirm LCMSMS (09/27/2022 3:43 AM EDT) 9 Carboxy THC <10 <10 ng/mL 09/29/2022 11:50 AM EDT [facility] 9 Carboxy THC Glucuronide 25(H) <25 ng/mL 09/29/2022 11:50 AM EDT [facility] Urine Urine specimen obtained by clean catch procedure / Unknown Non-blood Collection / Unknown 09/27/2022 3:43 AM EDT 09/27/2022 3:56 AM EDT [facility] - 09/29/2022 11:50 AM EDT Drug analysis is confirmed by LC-MS/MS (LC Tandem Mass Spectrometry) on Urine specimens. ?? This test was developed and its performance characteristics determined by [facility]. It has not been cleared or approved by the FDA. The laboratory is regulated under CLIA as qualified to perform high-complexity testing. This test is used for clinical purposes. Testing is performed at the [facility], [facility]. Zana Orr MD LAB URINE ORDERABLES Final Re sult Performing Organization Address [facility] de Phone Number [facility] [address] [place] [address] * Drug abuse screen (09/27/2022 3:43 AM EDT) Amphetamine Screen Urine Negative Cutoff: 500 ng/mL 09/27/2022 4:28 AM EDT [facility] Benzodiazepines Screen Urine Negative Cutoff: 200 ng/mL 09/27/2022 4:28 AM EDT [facility] Cannabinoid Screen Urine Presumptive positive. Confirmation by LC-MS/MS to follow. Cutoff: 50 ng/mL 09/27/2022 4:28 AM EDT [facility] Cocaine Screen Urine Negative Cutoff: 300 ng/mL 09/27/2022 4:28 AM EDT [facility] Barbiturate Screen Urine Negative Cutoff: 200 ng/mL 09/27/2022 4:28 AM EDT [facility] Opiate Screen Urine Negative Cutoff: 300 ng/mL 09/27/2022 4:28 AM EDT [facility] Methadone Screen Urine Negative Cutoff: 300 ng/mL 09/27/2022 4:28 AM EDT [facility] Buprenorphine Screen Urine Negative Cutoff: 10 ng/mL 09/27/2022 4:28 AM EDT [facility] Fentanyl Screen Urine Negative Cutoff: 1 ng/mL 09/27/2022 4:28 AM EDT [facility] Oxycodone Screen Urine Presumptive positive. Confirmation by LC-MS/MS to follow. Cutoff: 100 ng/mL 09/27/2022 4:28 AM EDT [facility] Urine Urine specimen obtained by clean catch procedure / Unknown Non-blood Collection / Unknown 09/27/2022 3:43 AM EDT 09/27/2022 3:56 AM EDT us Zana Orr MD LAB URINE ORDERABLES Final Re sult [facility] [address] [place] [id number] * Urinalysis with reflex microscopic (09/27/2022 3:34 AM EDT) Color, Urine Yellow LAB URINALYSIS - AUTOMATED METHOD 09/27/2022 3:45 AM EDT [facility] Clarity, Urine Clear LAB URINALYSIS - AUTOMATED METHOD 09/27/2022 3:45 AM EDT [facility] Spec Leroy, Urine 1.006 <=1.005 to >=1.030 LAB URINALYSIS - AUTOMATED METHOD 09/27/2022 3:45 AM EDT [facility] pH, Urine 7.0 4.5 to 8 LAB URINALYSIS - AUTOMATED METHOD 09/27/2022 3:45 AM EDT [facility] Protein, Urine Negative Negative mg/dL LAB URINALYSIS - AUTOMATED METHOD 09/27/2022 3:45 AM EDT [facility] Glucose, Urine Negative Negative mg/dL LAB URINALYSIS - AUTOMATED METHOD 09/27/2022 3:45 AM EDT [facility] Ketones, Urine Negative Negative mg/dL LAB URINALYSIS - AUTOMATED METHOD 09/27/2022 3:45 AM EDT [facility] Blood, Urine Negative Negative LAB URINALYSIS - AUTOMATED METHOD 09/27/2022 3:45 AM EDT [facility] Bilirubin, Urine Negative Negative LAB URINALYSIS - AUTOMATED METHOD 09/27/2022 3:45 AM EDT [facility] Urobilinogen, Urine 0.2 0.2 to 1.0 mg/dL LAB URINALYSIS - AUTOMATED METHOD 09/27/2022 3:45 AM EDT [facility] Leukocytes, Urine Negative Negative LAB URINALYSIS - AUTOMATED METHOD 09/27/2022 3:45 AM EDT [facility] Nitrite, Urine Negative Negative LAB URINALYSIS - AUTOMATED METHOD 09/27/2022 3:45 AM EDT [facility] Urine Urine specimen obtained by clean catch procedure / Unknown 09/27/2022 3:34 AM EDT 09/27/2022 3:43 AM EDT us Zana Orr MD LAB URINE ORDERABLES Final Re sult Performing Organization Address [facility] Co de Phone Number [facility] [address] [place] [address] * Magnesium (09/26/2022 9:14 PM EDT) Magnesium, Plasma 2.3 1.9 - 2.4 mg/dL 09/27/2022 5:30 AM EDT [facility] Blood Venous blood specimen / Unknown Venipuncture / Unknown 09/26/2022 9:14 PM EDT 09/26/2022 9:19 PM EDT us Zana Orr MD LAB BLOOD ORDERABLES Final Re sult Performing Organization Address [facility]/ZIP Co de Phone Number [facility] [address] [place] [address] documented in this encounter Visit Diagnoses Diagnosis Abdominal pain, generalized- Primary Vomiting and diarrhea Chronic pancreatitis, unspecified pancreatitis type (CMS/HCC) Generalized anxiety disorder Maladaptive health behaviors affecting medical condition documented in this encounter Administered Medications Inactive Administered Medications - up to 3 most recent administrations Medication Order MAR Action Action Date Dose Rate Site acetaminophen (Tylenol) tablet 650 mg 650 mg, Oral, Once, 1 dose, On 09/27/22 at 0340, STAT Given 09/27/2022 4:03 AM EDT 650 mg acetaminophen (Tylenol) tablet 650 mg 650 mg, Oral, Every 4 hours PRN, Starting on 09/27/22 at 0750, Until 09/27/22 at 1145, STAT, moderate pain Given 09/27/2022 8:58 AM EDT 650 mg famotidine PF (Pepcid) injection 20 mg 20 mg, Intravenous, Once, 1 dose, On 09/27/22 at 0340, STAT Given 09/27/2022 4:04 AM EDT 20 mg ketorolac (Toradol) injection 30 mg 30 mg, Intravenous, Once, 1 dose, On 09/27/22 at 0340, STAT Given 09/27/2022 4:04 AM EDT 30 mg ketorolac (Toradol) injection 30 mg 30 mg, Intravenous, Every 6 hours PRN, 5 doses, Starting on 09/27/22 at 0750, Until 09/27/22 at 1145, STAT, severe pain lactated Ringer's infusion 1,000 mL 1,000 mL, Intravenous, Once, 1 dose, On 09/27/22 at 0320, STAT New Bag 09/27/2022 4:05 AM EDT 1,000 mL lactated Ringer's infusion 1,000 mL 1,000 mL, Intravenous, Once, 1 dose, On 09/27/22 at 0500, STAT New Bag 09/27/2022 6:47 AM EDT 1,000 mL morphine PF 4 mg 4 mg, Intravenous, Once, 1 dose, On 09/27/22 at 0505, STAT Given 09/27/2022 5:29 AM EDT 4 mg ondansetron (Zofran) injection 4 mg 4 mg, Intravenous, Once, 1 dose, On 09/27/22 at 0330, STAT Given 09/27/2022 4:04 AM EDT 4 mg ondansetron (Zofran) injection 4 mg 4 mg, Intravenous, Once, 1 dose, On 09/27/22 at 0505, STAT Given 09/27/2022 5:29 AM EDT 4 mg ondansetron (Zofran) injection 4 mg 4 mg, Intravenous, Every 6 hours PRN, Starting on 09/27/22 at 0750, Until 09/27/22 at 1145, STAT, nausea, vomiting oxyCODONE (Roxicodone) immediate release tablet 5 mg 5 mg, Oral, Once, 1 dose, On 09/27/22 at 0340, STAT Given 09/27/2022 4:02 AM EDT 5 mg oxyCODONE (Roxicodone) immediate release tablet 5 mg 5 mg, Oral, Every 4 hours PRN, Starting on 09/27/22 at 0749, Until 09/27/22 at 1145, STAT, severe pain Given 09/27/2022 8:59 AM EDT 5 mg documented in this encounter Active and Recently Administered Medications Times are shown in EDT. Scheduled Medication Order 09/25/2022 09/26/2022 09/27/2022 acetaminophen (Tylenol) tablet 650 mg (COMPLETED) 650 mg, Oral, Once, 1 dose, On 09/27/22 at 0340, STAT 0403 (Given - Provid er: Chantal Marks) famotidine PF (Pepcid) injection 20 mg (COMPLETED) 20 mg, Intravenous, Once, 1 dose, On 09/27/22 at 0340, STAT 0404 (Given - Provid er: Chantal Marks) ketorolac (Toradol) injection 30 mg (COMPLETED) 30 mg, Intravenous, Once, 1 dose, On 09/27/22 at 0340, STAT 0404 (Given - Provid er: Chantal Marks) lactated Ringer's infusion 1,000 mL (COMPLETED) 1,000 mL, Intravenous, Once, 1 dose, On 09/27/22 at 0320, STAT 0405 (New Bag - Prov ider: Chantal Marks)0647 (Stopped - Provider: Chantal Marks) lactated Ringer's infusion 1,000 mL (COMPLETED) 1,000 mL, Intravenous, Once, 1 dose, On 09/27/22 at 0500, STAT 0647 (New Bag - Prov ider: Chantal Marks)0853 (Stopped - Provider: More Navarro RN) morphine PF 4 mg (COMPLETED) 4 mg, Intravenous, Once, 1 dose, On 09/27/22 at 0505, STAT 0529 (Given - Provid er: Chantal Marks) ondansetron (Zofran) injection 4 mg (COMPLETED) 4 mg, Intravenous, Once, 1 dose, On 09/27/22 at 0330, STAT 0404 (Given - Provid er: Chantal Marks) ondansetron (Zofran) injection 4 mg (COMPLETED) 4 mg, Intravenous, Once, 1 dose, On 09/27/22 at 0505, STAT 0529 (Given - Provid er: Chantal Marks) oxyCODONE (Roxicodone) immediate release tablet 5 mg (COMPLETED) 5 mg, Oral, Once, 1 dose, On 09/27/22 at 0340, STAT 0402 (Given - Provid er: Chantal Marks) PRN Medication Order 09/25/2022 09/26/2022 09/27/2022 acetaminophen (Tylenol) tablet 650 mg 650 mg, Oral, Every 4 hours PRN, Starting on 09/27/22 at 0750, Until 09/27/22 at 1145, STAT, moderate pain 0858 (Given - Provid er: More Navarro RN) ketorolac (Toradol) injection 30 mg 30 mg, Intravenous, Every 6 hours PRN, 5 doses, Starting on 09/27/22 at 0750, Until 09/27/22 at 1145, STAT, severe pain ondansetron (Zofran) injection 4 mg 4 mg, Intravenous, Every 6 hours PRN, Starting on 09/27/22 at 0750, Until 09/27/22 at 1145, STAT, nausea, vomiting oxyCODONE (Roxicodone) immediate release tablet 5 mg 5 mg, Oral, Every 4 hours PRN, Starting on 09/27/22 at 0749, Until 09/27/22 at 1145, STAT, severe pain 0859 (Given - Provid er: More Navarro RN) documented in this encounter Additional Health Concerns Assessment Noted Time A fall risk assessment has been complete d for the patient 11/21/2020 2:30 PM EDT documented as of this encounter Care Teams 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
--- OUTSIDE RECORDS SUMMARY | 2024-02-03 15:19 | XMS_ITS | Encounter Summary ---
Author Organization Healthcare Address [address] [place] [address] Care Team Providers Care History Teacher Name Role Phone Elmo Escobar MD Primary Care Provider [phone] Reason for Referral * Consultation (Routine) - Authorized Specialty Diagnoses / Procedures Referred By Susy burks Referred To Contact Gastroenterology Diagnoses Epigastric pain Bilious vomiting with nausea Robby Momin MD [address] [place] [address] Phone: tel: fax: [facility] [address] [place] [address] Phone: tel: fax: Referral ID Status Reason Start Date Expiration Date Visits Requested Visits Authorized [id number] Authorized Specialty Services Required 10/10/2022 04/10/2024 1 1 Reason for Visit * Reason Comments Abdominal Pain Encounter Details Date Type Department Care Team (Late st Contact Info) Description 10/10/2022 3:03 PM EDT - 10/10/2022 7:45 PM EDT Emergency [facility] [address] [place] [address] Robby Momin MD [address] [place] [address] Epigastric pain (Primary Dx); Bilious vomiting with nausea Discharge Disposition: Home or Self Care Social [...] drink first t caleb in the morning (EYE-LIVING ADVISOR) to steady your nerves or to [...] Sign Reading Time Taken Comments Blood Pressure 156/107 10/10/2022 7:04 PM EDT Pulse 73 10/10/2022 7:04 PM EDT Temperature 36.8 ??C (98.3 ??F) 10/10/2022 7:04 PM ED T Respiratory Rate 18 10/10/2022 7:04 PM EDT Oxygen Saturation 98% 10/10/2022 7:04 PM EDT Inhaled Oxygen Concentration - - Weight - - Height - - Body Mass Index - - documented in this encounter Medications at Time [...] Miscellaneous Notes * ED Provider Notes - Tenzin Diamond MD - 10/10/2022 1:29 PM EDT - HPI Chief Complaint Patient presents with Abdominal Pain PIT Note Lila Mcnally is a 36 y.o. female who presents to ED with abdominal pain. Pt reports h/o chronicpancreatitis adding since Thursday she has had some progressive throbbing LUQ pain. Pain is worsened when she leans back but is improved when leaning forward. Pt also c/o accompanied N/V/D. Patient denies any other medical complaints at this time. TENZIN DIAMOND: I agree with the above. Reports history of multiple episodes of pancreatitis in the past 4 years. Pain started Thursday evening. States it is constant and throbbing in epigastric region. Occasionally has sharp, stabbing feeling that waxes and wanes. Has had 6 episodes of biliousvomiting and about 10 episodes of watery diarrhea. Denies blood or melena. Denies fever, chills, swe ats, chest pain, or soa. 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 by: Patient deaf interpreter used: No No data recorded Patient [...] Neurological: Negative for seizures and syncope. Psychiatric/Behavioral: Negative. All other systems reviewed and are negative. Physical Exam ED Triage Vitals [10/10/22 1332] Temp Heart Rate Resp BP 36.6 ??C (97.9 ??F) (!) 115 16 (!) 158/101 SpO2 Temp src Heart Rate Source Patient Position 97 % -- -- Sitting BP Location FiO2 (%) -- [...] area. There is no guarding or rebound. Musculoskeletal: General: No deformity. Cervical back: Normal range of motion and neck supple. Skin: General: Skin is warm and dry. Coloration: Skin is not jaundiced or pale. Neurological: General: No focal deficit present. Mental Status: She is alert and oriented to person, place, and time. ED Course & MDM Clinical Impressions as of 10/10/22 194 Epigastric pain Bilious vomiting with nausea Medical Decision Making Date/Time: 10/10/2022/2:46 PM Entered by Batsheva Ibrahim, acting as scribe for Dr. Saravia. Attending Attestation: The documentation was recorded by Batsheva Ibrahim, acting as scribe in my presence at the time of the encounter and accurately reflects the service I personally performed. Patient was seen and examined with Dr. Moimn. In summary, this is a 36 y/o female with reported history of recurrent pancreatitis presenting for 2 days of epigastric pain and n/v/d. Patient was afebrile, hemodynamically stable, in no respiratorydistress, and nontoxic in appearance upon arrival and throughout the entire stay in the ED. On physical examination, patient exhibited epigastric tenderness without rebound or guarding. The DDx includes, but is not limited to, pancreatitis, gastritis, gastric ulcer (nonbleeding), gastroenteritis. All of these have been considered and worked-up with laboratory and/or radiographic evaluation to theextent appropriate based on history and physical examination. Ruling out the most morbid conditionsdrove my clinical assessment. Orders Placed This Encounter Procedures CBC w/diff CMP Lipase Magnesium Phosphorus Blood gas panel, venous hCG qualitative Urinalysis with reflex microscopic Discharge Ambulatory referral to [facility] Insert peripheral IV Interventions/Medications Received in the ED: Medications iohexol (OMNIPaque) 300 MG/ML injection 100 mL (has no administration in time range) lactated Ringer's infusion 1,000 mL (0 mL Intravenous Stopped 10/10/22 1714) ondansetron (Zofran) injection 4 mg (4 mg Intravenous Given 10/10/22 1545) morphine PF 4 mg (4 mg Intravenous Given 10/10/22 1545) gi cocktail oral solution 30 mL (30 mL Oral Given 10/10/22 1631) sucralfate (Carafate) 1 GM/10ML suspension 1 g (1 g Oral Given 10/10/22 163) HYDROmorphone (Dilaudid) injection 0.25 mg (0.25 mg Intravenous Given 10/10/22 1633) promethazine (Phenergan) injection 25 mg (25 mg Intravenous Given 10/10/22 1858) morphine PF 4 mg (4 mg Intravenous Given 10/10/22 185) Reassessment: On re-evaluation of patient, patient endorsed significant improvement of symptoms with phenergan and iv morphine. Was tolerating PO intake well, both liquid and solids. Patient expressed concern for the number of CT scans she has had over the last year. As her symptoms had improved she elected to not undergo CT for further evaluation of more severe causes of abdominal pain. Given unremarkable workup and/or symptomatic relief, and/or stability during time of observation inthe ED, at this time it was felt that the patient was safe to be discharged home. The patient was comfortable and in agreement with this plan. Patient instructed to follow up with PCP. The patient was given strict return precautions prior to being discharged from the emergency department. DISPOSITION: Discharge ED Prescriptions None Sign Off Checklist Clinical Impression: Complete ED Disposition: Complete - Tenzin Diamond MD Resident 10/10/222109 Cosigned by Robby Momin MD at 10/11/2022 11:11 AM EDT Associated attestation - Robby Momin MD - 10/11/2022 11:11 AM EDT I saw and evaluated the patient with the resident/fellow. I discussed the case with the resident/fellow and agree with the findings and plan as documented. * ED Triage Notes - Radha Walters RN - 10/10/2022 1:29 PM EDT Pt stated that she is having left side pain that goes around to her back with n/v. Pt stated that pain is worse leaning back the when she leans forward. documented in this encounter Plan of Treatment Scheduled Referrals Name Type Priority Associated Diagnoses Order Schedule Discharge Ambulatory referral to Gastroenterology Outpatient Referral Routine Epigastric pain Bilious vomiting with nausea 1 Occurrences starting 10/10/2022 until 04/12/2024 documented as of this encounter Procedures Procedure Name Priority Date/Time Associated Diagnosis Comments URINALYSIS WITH REFLEX MICROSCOPIC STAT 10/10/2022 5:18 PM EDT CBC WITH AUTO DIFFERENTIAL STAT 10/10/2022 3:40 PM EDT TEST QUALITATIVE PLASMA STAT 10/10/2022 3:40 PM EDT PHOSPHORUS, PLASMA STAT 10/10/2022 3: 40 PM EDT MAGNESIUM, PLASMA STAT 10/10/2022 3:4 0 PM EDT LIPASE, PLASMA STAT 10/10/2022 3:40 PM EDT BLOOD GAS PANEL, VENOUS STAT 10/10/2022 3:40 PM EDT COMPREHENSIVE METABOLIC PANEL, PLASMA STAT 10/10/2022 3:40 PM EDT documented in this encounter Results * Urinalysis with reflex microscopic (10/10/2022 5:18 PM EDT) Color, Urine Yellow LAB URINALYSIS - AUTOMATED METHOD 10/10/2022 5:23 PM EDT [facility] Clarity, Urine Clear LAB URINALYSIS - AUTOMATED METHOD 10/10/2022 5:23 PM EDT [facility] Spec [place], Urine 1.008 <=1.005 to >=1.030 LAB URINALYSIS - AUTOMATED METHOD 10/10/2022 5:23 PM EDT [facility] pH, Urine 6.5 4.5 to 8 LAB URINALYSIS - AUTOMATED METHOD 10/10/2022 5:23 PM EDT [facility] Protein, Urine Negative Negative mg/dL LAB URINALYSIS - AUTOMATED METHOD 10/10/2022 5:23 PM EDT [facility] Glucose, Urine Negative Negative mg/dL LAB URINALYSIS - AUTOMATED METHOD 10/10/2022 5:23 PM EDT [facility] Ketones, Urine Negative Negative mg/dL LAB URINALYSIS - AUTOMATED METHOD 10/10/2022 5:23 PM EDT [facility] Blood, Urine Negative Negative LAB URINALYSIS - AUTOMATED METHOD 10/10/2022 5:23 PM EDT [facility] Bilirubin, Urine Negative Negative LAB URINALYSIS - AUTOMATED METHOD 10/10/2022 5:23 PM EDT [facility] Urobilinogen, Urine 0.2 0.2 to 1.0 mg/dL LAB URINALYSIS - AUTOMATED METHOD 10/10/2022 5:23 PM EDT [facility] Leukocytes, Urine Negative Negative LAB URINALYSIS - AUTOMATED METHOD 10/10/2022 5:23 PM EDT [facility] Nitrite, Urine Negative Negative LAB URINALYSIS - AUTOMATED METHOD 10/10/2022 5:23 PM EDT [facility] Urine Urine specimen obtained by clean catch procedure / Unknown Non-blood Collection / Unknown 10/10/2022 5:18 PM EDT 10/10/2022 5:21 PM EDT Jermain Saravia MD LAB URINE ORDERABLES Final Res ult Performing Organization Address [facility] Co de Phone Number [facility] [address] [place] [address] * hCG qualitative (10/10/2022 3:40 PM EDT) Test Negative Negative 10/10/2022 4:19 PM EDT [facility] Blood Venous blood specimen / Unknown Venipuncture / Unknown 10/10/2022 3:40 PM EDT 10/10/2022 3:48 PM EDT Narrative [facility] - 10/10/2022 4:19 PM EDT Reference Range: Males and non- females: Negative. Jermain Saravia MD LAB BLOOD ORDERABLES Final Res ult Performing Organization Address [facility] de Phone Number [facility] [address] [place] [address] * (ABNORMAL) Blood gas panel, venous (10/10/2022 3:40 PM EDT) pH, Venous 7.40 7.32 - 7.43 LAB HEMATOLOGY METHOD 10/10/2022 3:55 PM EDT [facility] pCO2, Venous 35(L) 37 - 52 mmHg LAB HEMATOLOGY METHOD 10/10/2022 3:55 PM EDT [facility] pO2, Venous 65(H) 25 - 40 mmHg LAB HEMATOLOGY METHOD 10/10/2022 3:55 PM EDT [facility] SO2, Measured, Venous 94.5(H) 65 - 80 % LAB HEMATOLOGY METHOD 10/10/2022 3:55 PM EDT [facility] Base Excess, Venous -2.3(L) -2.0 - 3.0 mmol/L LAB HEMATOLOGY METHOD 10/10/2022 3:55 PM EDT [facility] Bicarbonate, Calculated, Venous 22 22 - 26 mmol/L LAB HEMATOLOGY METHOD 10/10/2022 3:55 PM EDT [facility] Hematocrit, Whole Blood 35.9 34.0 - 45.0 % LAB HEMATOLOGY METHOD 10/10/2022 3:55 PM EDT [facility] Sodium, Whole Blood 142 136 - 145 mmol/L LAB HEMATOLOGY METHOD 10/10/2022 3:55 PM EDT [facility] Potassium, Whole Blood 3.8 3.6 - 4.9 mmol/L LAB HEMATOLOGY METHOD 10/10/2022 3:55 PM EDT [facility] Chloride, Whole Blood 110(H) 97 - 107 mmol/L LAB HEMATOLOGY METHOD 10/10/2022 3:55 PM EDT [facility] Glucose, Whole Blood 78 74 - 99 mg/dL LAB HEMATOLOGY METHOD 10/10/2022 3:55 PM EDT [facility] Lactate, Venous, Whole Blood 1.5 0.5 - 2.2 mmol/L LAB HEMATOLOGY METHOD 10/10/2022 3:55 PM EDT [facility] Ionized Calcium, Whole Blood 4.9 4.6 - 5.1 mg/dL LAB HEMATOLOGY METHOD 10/10/2022 3:55 PM EDT [facility] Blood Venous blood specimen / Unknown Venipuncture / Unknown 10/10/2022 3:40 PM EDT 10/10/2022 3:48 PM EDT us Jermain Saravia MD LAB BLOOD ORDERABLES Final Res ult [facility] [address] [place] [address] * Phosphorus (10/10/2022 3:40 PM EDT) Pathologist [facility] Phosphorus, Plasma 3.3 2.5 - 4.5 mg/dL 10/10/2022 4:19 PM EDT [facility] Blood Venous blood specimen / Unknown Venipuncture / Unknown 10/10/2022 3:40 PM EDT 10/10/2022 3:48 PM EDT us Jermain Saravia MD LAB BLOOD ORDERABLES Final Res ult [facility] [address] [place] [address] * Magnesium (10/10/2022 3:40 PM EDT) Magnesium, Plasma 2.1 1.9 - 2.4 mg/dL 10/10/2022 4:19 PM EDT [facility] Blood Venous blood specimen / Unknown Venipuncture / Unknown 10/10/2022 3:40 PM EDT 10/10/2022 3:48 PM EDT Jermain Saravia MD LAB BLOOD ORDERABLES Final Res ult [facility] [address] [place] [address] * Lipase (10/10/2022 3:40 PM EDT) Lipase, Plasma 30 19 - 63 U/L 10/10/2022 4:19 PM EDT [facility] Blood Venous blood specimen / Unknown Venipuncture / Unknown 10/10/2022 3:40 PM EDT 10/10/2022 3:48 PM EDT Jermain Saravia MD LAB BLOOD ORDERABLES Final Res ult [facility] [address] [place] [address] * (ABNORMAL) CMP (10/10/2022 3:40 PM EDT) Glucose, Plasma 79 74 - 99 mg/dL 10/10/2022 4:19 PM EDT [facility] BUN, Plasma 7 7 - 21 mg/dL 10/10/2022 4:19 PM EDT [facility] Creatinine, Plasma 0.65 0.60 - 1.10 mg/dL 10/10/2022 4:19 PM EDT [facility] BUN/Creatinine Ratio 11 10/10/2022 4:19 PM EDT [facility] Sodium, Plasma 140 136 - 145 mmol/L 10/10/2022 4:19 PM EDT [facility] Potassium, Plasma 4.0 3.7 - 4.8 mmol/L 10/10/2022 4:19 PM EDT [facility] Chloride, Plasma 106 97 - 107 mmol/L 10/10/2022 4:19 PM EDT [facility] CO2, Plasma 20(L) 22 - 29 mmol/L 10/10/2022 4:19 PM EDT [facility] Anion Gap 14 6 - 16 mmol/L 10/10/2022 4:19 PM EDT [facility] Total Calcium, Plasma 9.4 8.9 - 10.2 mg/dL 10/10/2022 4:19 PM EDT [facility] Total Protein 6.8 6.3 - 7.9 g/dL 10/10/2022 4:19 PM EDT [facility] Albumin, Plasma 4.3 3.5 - 5.2 g/dL 10/10/2022 4:19 PM EDT [facility] AST, Plasma 13 11 - 32 U/L 10/10/2022 4:19 PM EDT [facility] ALT, Plasma 18 8 - 33 U/L 10/10/2022 4:19 PM EDT [facility] Alkaline Phosphatase, Plasma 94 35 - 104 U/L 10/10/2022 4:19 PM EDT [facility] Total Bilirubin, Plasma 0.2 0.2 - 1.1 mg/dL 10/10/2022 4:19 PM EDT [facility] eGFRcr 117.9 mL/min/1.7 3m*2 10/10/2022 4:19 PM EDT [facility] Comment:Reported eGFRcr in m L/min/1.73m2 is based the CKD-EPI 2020 equation that does not use a race coefficient. Blood Venous blood specimen / Unknown Venipuncture / Unknown 10/10/2022 3:40 PM EDT 10/10/2022 3:48 PM EDT us Jermain Saravia MD LAB BLOOD ORDERABLES Final Res ult [facility] [address] [place] [address] * (ABNORMAL) CBC w/diff (10/10/2022 3:40 PM EDT) WBC Count 5.04 3.70 - 10.30 10*3/uL LAB HEMATOLOGY METHOD 10/10/2022 3:50 PM EDT [facility] RBC Count 4.30 3.90 - 5.20 10*6/uL LAB HEMATOLOGY METHOD 10/10/2022 3:50 PM EDT [facility] HGB 11.2 11.2 - 15.7 g/dL LAB HEMATOLOGY METHOD 10/10/2022 3:50 PM EDT [facility] HCT 34.6 34.0 - 45.0 % LAB HEMATOLOGY METHOD 10/10/2022 3:50 PM EDT [facility] Platelet Count 216 155 - 369 10*3/uL LAB HEMATOLOGY METHOD 10/10/2022 3:50 PM EDT [facility] MCV 81 79 - 98 fL LAB HEMATOLOGY METHOD 10/10/2022 3:50 PM EDT [facility] MCH 26.0 26.0 - 32.0 pg LAB HEMATOLOGY METHOD 10/10/2022 3:50 PM EDT [facility] MCHC 32.4 30.7 - 35.5 g/dL LAB HEMATOLOGY METHOD 10/10/2022 3:50 PM EDT [facility] RDW 14.8(H) 11.5 - 14.5 % LAB HEMATOLOGY METHOD 10/10/2022 3:50 PM EDT [facility] MPV 10.0 8.8 - 12.5 fL LAB HEMATOLOGY METHOD 10/10/2022 3:50 PM EDT [facility] nRBC 0.0 <=0.0 per 100 WBCs LAB HEMATOLOGY METHOD 10/10/2022 3:50 PM EDT [facility] Differential Type Automated LAB HEMATOLOGY METHOD 10/10/2022 3:50 PM EDT [facility] Neutrophils % 57.0 % LAB HEMATOLOGY METHOD 10/10/2022 3:50 PM EDT [facility] Lymphocytes % 34.0 % LAB HEMATOLOGY METHOD 10/10/2022 3:50 PM EDT [facility] Monocytes % 6.0 % LAB HEMATOLOGY METHOD 10/10/2022 3:50 PM EDT [facility] Eosinophils % 2.0 % LAB HEMATOLOGY METHOD 10/10/2022 3:50 PM EDT [facility] Basophils % 1.0 % LAB HEMATOLOGY METHOD 10/10/2022 3:50 PM EDT [facility] Immature Granulocytes % 0.0 % LAB HEMATOLOGY METHOD 10/10/2022 3:50 PM EDT [facility] Neutrophils Absolute 2.88 1.60 - 6.10 10*3/uL LAB HEMATOLOGY METHOD 10/10/2022 3:50 PM EDT [facility] Lymphocytes Absolute 1.72 1.20 - 3.90 10*3/uL LAB HEMATOLOGY METHOD 10/10/2022 3:50 PM EDT [facility] Monocytes Absolute 0.29(L) 0.30 - 0.90 10*3/uL LAB HEMATOLOGY METHOD 10/10/2022 3:50 PM EDT [facility] Eosinophils Absolute 0.08 0.00 - 0.50 10*3/uL LAB HEMATOLOGY METHOD 10/10/2022 3:50 PM EDT [facility] Basophils Absolute 0.05 0.00 - 0.10 10*3/uL LAB HEMATOLOGY METHOD 10/10/2022 3:50 PM EDT [facility] Immature Granulocytes Absolute 0.02 0.00 - 0.06 10*3/uL LAB HEMATOLOGY METHOD 10/10/2022 3:50 PM EDT [facility] Blood Venous blood specimen / Unknown Venipuncture / Unknown 10/10/2022 3:40 PM EDT 10/10/2022 3:48 PM EDT Narrative [facility] - 10/10/2022 3:50 PM EDT Therapeutic decision making should be based on absolute values, rather than percentages. us Jermain Saravia MD LAB BLOOD ORDERABLES Final Res ult [facility] [address] [place], [place] [id number] documented in this encounter Visit Diagnoses Diagnosis Epigastric pain- Primary Abdominal pain, epigastric Bilious vomiting with nausea documented in this encounter Administered Medications Inactive Administered Medications - up to 3 most recent administrations Medication Order MAR Action Action Date Dose Rate Site gi cocktail oral solution 30 mL 30 mL, Oral, Once, 1 dose, On Thu10/10/22 at 1620, STAT Given 10/10/2022 4:31 PM EDT 30 mL HYDROmorphone (Dilaudid) injection 0.25 mg 0.25 mg, Intravenous, Once, 1 dose, On Thu10/10/22 at 1635, STAT Given 10/10/2022 4:33 PM EDT 0.25 mg iohexol (OMNIPaque) 300 MG/ML injection 100 mL 100 mL, Intravenous, Once in imaging, 1 dose, Starting on Thu10/10/22 at 1842, Until Thu10/10/22 at 2145, Routine, Imaging Protocol Orders lactated Ringer's infusion 1,000 mL 1,000 mL, Intravenous, Once, 1 dose, On Thu10/10/22 at 1450, STAT New Bag 10/10/2022 3:45 PM EDT 1,000 mL morphine PF 4 mg 4 mg, Intravenous, Once, 1 dose, On Thu10/10/22 at 1450, STAT Given 10/10/2022 3:45 PM EDT 4 mg morphine PF 4 mg 4 mg, Intravenous, Once, 1 dose, On Thu10/10/22 at 1835, STAT Given 10/10/2022 6:59 PM EDT 4 mg ondansetron (Zofran) injection 4 mg 4 mg, Intravenous, Once, 1 dose, On Thu10/10/22 at 1450, STAT Given 10/10/2022 3:45 PM EDT 4 mg promethazine (Phenergan) injection 25 mg 25 mg, Intravenous, Once, 1 dose, On Thu10/10/22 at 1820, STAT Given 10/10/2022 6:58 PM EDT 25 mg sucralfate (Carafate) 1 GM/10ML suspension 1 g 1 g, Oral, Once, 1 dose, On Thu10/10/22 at 1620, STAT Given 10/10/2022 4:31 PM EDT 1 g documented in this encounter Active and Recently Administered Medications Times are shown in EDT. Scheduled Medication Order 10/08/2022 10/09/2022 10/10/2022 gi cocktail oral solution 30 mL (COMPLETED) 30 mL, Oral, Once, 1 dose, On Thu10/10/22 at 1620, STAT 1631 (Given - Provid er: Yossi Marsh, CHANDNI) HYDROmorphone (Dilaudid) injection 0.25 mg (COMPLETED) 0.25 mg, Intravenous, Once, 1 dose, On Thu10/10/22 at 1635, STAT 1633 (Given - Provid er: Yossi Marsh, CHANDNI) iohexol (OMNIPaque) 300 MG/ML injection 100 mL 100 mL, Intravenous, Once in imaging, 1 dose, Starting on Thu10/10/22 at 1842, Until Thu10/10/22 at 2145, Routine, Imaging Protocol Orders lactated Ringer's infusion 1,000 mL (COMPLETED) 1,000 mL, Intravenous, Once, 1 dose, On Thu10/10/22 at 1450, STAT 1545 (New Bag - Prov ider: Yossi Marsh, RN)1714 (Stopped - Provider: Yossi Marsh RN) morphine PF 4 mg (COMPLETED) 4 mg, Intravenous, Once, 1 dose, On Thu10/10/22 at 1450, STAT 1545 (Given - Provid er: Yossi Marsh, CHANDNI) morphine PF 4 mg (COMPLETED) 4 mg, Intravenous, Once, 1 dose, On Thu10/10/22 at 1835, STAT 1859 (Given - Provid er: Yossi Marsh RN) ondansetron (Zofran) injection 4 mg (COMPLETED) 4 mg, Intravenous, Once, 1 dose, On Thu10/10/22 at 1450, STAT 1545 (Given - Provid er: Yossi Marsh RN) promethazine (Phenergan) injection 25 mg (COMPLETED) 25 mg, Intravenous, Once, 1 dose, On Thu10/10/22 at 1820, STAT 1858 (Given - Provid er: Yossi Marsh, CHANDNI) sucralfate (Carafate) 1 GM/10ML suspension 1 g (COMPLETED) 1 g, Oral, Once, 1 dose, On Thu10/10/22 at 1620, STAT 1631 (Given - Provid er: Yossi Marsh RN) documented in this encounter Additional Health Concerns Assessment Noted Time A fall risk assessment has been complete d for the patient 11/21/2020 2:30 PM EDT documented as of this encounter Care Teams History Teacher Relationship Specialty Start Date End Date Elmo Escobar MD PCP - General 10/18/20 01/05/23 documented as of this encounter
--- OUTSIDE RECORDS SUMMARY | 2024-02-03 15:19 | XMS_ITS | Encounter Summary ---
Author Organization Healthcare Address [address] [place] [address] Care Team Providers Care Teletype Or Varitype Keyboard Operator Name Role Phone Elmo Escobar MD Primary Care Provider [phone] Reason for Visit * Reason Comments Abdominal Pain Encounter Details Date Type Department Care Team (Late st Contact Info) Description 10/18/2022 4:06 PM EDT - 10/18/2022 7:51 PM EDT Emergency [facility] Emergency Department [address] [place] [address] Abdominal pain, generalized (Primary Dx); Nausea and vomiting, unspecified vomiting [...] drink first t caleb in the morning ([employer]) to steady your nerves or to [...] Sign Reading Time Taken Comments Blood Pressure 132/95 10/18/2022 7:49 PM EDT Pulse 78 10/18/2022 7:49 PM EDT Temperature 36.6 ??C (97.9 ??F) 10/18/2022 7:49 PM ED T Respiratory Rate 16 10/18/2022 7:49 PM EDT Oxygen Saturation 98% 10/18/2022 7:49 PM EDT Inhaled Oxygen Concentration - - Weight 111 kg (244 lb 11.4 oz) 10/18/2022 4:05 P M EDT Height - - Body Mass Index 40.72 10/16/2022 10:11 PM EDT documented in this encounter Discharge Instructions * Discharge Instructions* Claudio Herrera PA - 10/18/2022 7:37 PM EDT Please follow-up with family physician and nematologist in 2 days on Thursday. Please continue to take your home medications with Zofran and Protonix as needed. Please return to the emergency room immediately with any worsening of symptoms, any problems or concerns. * Attachments The following attachments cannot be sent through Care Everywhere. * Vomiting (Adult) (Uruguayan) * Abdominal Pain, Adult (Uruguayan) documented in this encounter Medications at Time [...] if needed for nausea or vomiting. 11/15/19 promethazine (Phenergan) 25 MG tablet Take 1 tablet (25 mg) by mouth every 6 (six) hours if needed for nausea or vomiting. 30 tablet 10/10/2022 10/27/19 23 documented as of this encounter Miscellaneous Notes * ED Provider Notes - Claudio Herrera PA - 10/18/2022 3:50 PM EDT - HPI Chief Complaint Patient presents with Abdominal Pain Patient is a 36-year-old female who presents to the emergency room with reports of having abdominalpain to the left upper quadrant and epigastric region with nausea and vomiting. Patient reports that she has had pain for the past 1 week with nausea vomiting since last night. Patient reports no blood in emesis or in stool. Patient reports no black tarry stools. Patient reports no diarrhea. Patient reports no chest pain, shortness of air, wheezing or stridor. Patient reports no neck pain or neckstiffness. Patient reports no back pain, flank pain or urinary symptoms. Patient reports no vaginalbleeding or vaginal discharge. Patient reports no headache, visual changes or tinnitus. Patient reports no numbness/tingling weakness. Patient reports no dizziness or feeling lightheaded. Patient reports no fever chills. Patient reports no other problems or complaints. 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 by: Patient clinical review specialist used: No Abdominal Pain Pain location: LUQ and epigastric Pain quality: aching Pain radiates to: Does not radiate Pain severity: Mild Onset quality: Gradual Duration: 1 week Timing: Intermittent Progression: Waxing and waning Chronicity: [...] vomiting. Negative for abdominal distention, blood in stool, constipation, diarrhea, flatus, hematemesis, hematochezia and melena. Genitourinary: Negative for decreased urine volume, difficulty urinating, dysuria, flank pain, frequency, hematuria, urgency, vaginal bleeding, vaginal discharge and vaginal pain. Musculoskeletal: Negative for arthralgias, back pain, myalgias, neck pain and neck stiffness. Skin: Negative for color change and pallor. Neurological: Negative for dizziness, tremors, seizures, syncope, weakness, light-headedness, numbness and headaches. Psychiatric/Behavioral: Negative for behavioral problems. The patient is not nervous/anxious. Physical Exam ED Triage Vitals [10/18/22 1605] Temp Heart Rate Resp BP 37 ??C (98.6 ??F) 107 18 (!) 154/106 SpO2 Temp src Heart Rate Source Patient [...] is clear. Eyes: General: No scleral icterus. Extraocular Movements: [...] hepatomegaly, splenomegaly or mass. Tenderness: There is abdominal tenderness in [...] DIFFERENTIAL - Abnormal Result Value WBC Count 5.43 RBC Count 4.41 HGB 11.6 HCT 35.8 Platelet Count 198 MCV 81 MCH 26.3 MCHC 32.4 RDW 15.7 (*) MPV 9.8 nRBC 0.0 COMPREHENSIVE METABOLIC PANEL, PLASMA - Abnormal Glucose, Plasma 56 (*) BUN, Plasma 5 (*) Creatinine, Plasma 0.56 (*) BUN/Creatinine Ratio 9 Sodium, Plasma 141 Potassium, Plasma 3.6 (*) Chloride, Plasma 108 (*) CO2, Plasma 19 (*) Anion Gap 14 Total Calcium, Plasma 9.1 Total Protein 6.9 Albumin, Plasma 4.2 AST, Plasma 54 (*) ALT, Plasma 39 (*) Alkaline Phosphatase, Plasma 106 (*) Total Bilirubin, Plasma <0.2 (*) eGFRcr 122.2 LACTATE, VENOUS - Abnormal Lactate, Venous, Whole Blood 3.2 (*) LIPASE, PLASMA - Normal Lipase, Plasma 38 TEST QUALITATIVE PLASMA - Normal Test Negative Narrative: Reference Range: Males and non- females: Negative. URINE CULTURE URINALYSIS WITH REFLEX MICROSCOPIC Color, Urine Yellow Clarity, Urine Clear Spec [place], Urine <=1.005 pH, Urine 6.5 Protein, Urine Negative Glucose, Urine Negative Ketones, Urine Negative Blood, Urine Negative Bilirubin, Urine Negative Urobilinogen, Urine 0.2 Leukocytes, Urine Negative Nitrite, Urine Negative URINALYSIS WITH REFLEX MICROSCOPIC CT Abdomen Pelvis w IV Contrast Final Result No acute findings. CRITICAL RESULT: No. COMMUNICATION: Per this written report. Drafted by Dillon Pendleton MD on 10/18/2022 6:19 PM Final report signed by Dillon Pendleton MD on 10/18/2022 6:23 PM Medications oxyCODONE (Roxicodone) immediate release tablet 5 mg (has no administration in time range) ondansetron (Zofran) injection 4 mg (4 mg Intravenous Given 10/18/22 164) morphine PF 4 mg (4 mg Intravenous Given 10/18/22 165) sodium chloride 0.9 % infusion 1,000 mL (0 mL Intravenous Stopped 10/18/221832) sodium chloride 0.9 % infusion 1,000 mL (0 mL Intravenous Stopped 10/18/221939) iohexol (OMNIPaque) 300 MG/ML injection 100 mL (100 mL Intravenous Given 10/18/221804) promethazine (Phenergan) injection 12.5 mg (12.5 mg Intravenous Given 10/18/221844) morphine PF 2 mg (2 mg Intravenous Given 10/18/221844) ED Course as of 10/18/221945 Sat Oct 18, 20221837 Patient's hCG is negative. Patient's lipase is normal. Patient's lactate is 3.2. Patient with a CMP completed with glucose 56, potassium 3.6, chloride 108, bicarb 19, AST 54, ALT 39, alkaline phosphatase 105, with no other significant or critical findings on CMP. Patient with a CBC completed with RDW being 15.7 with no other significant or critical findings on CBC. [TN] 1846 CT Abdomen Pelvis w IV Contrast IMPRESSION: No acute findings. [TN] 1936 Patient with a UA completed with being negative. [TN] ED Course User Index [TN] Claudio Herrera PA Clinical Impressions as of 10/18/221945 Abdominal pain, generalized Nausea and vomiting, unspecified vomiting type Medical Decision Making Patient is a 36-year-old female who presents to the emergency room with reports of having abdominalpain to the left upper quadrant and epigastric region with nausea and vomiting. Patient reports that she has had pain for the past 1 week with nausea vomiting since last night. Patient was given morphine and oxycodone for pain, patient reports she has had morphine and oxycodone in the past. Patientreports no adverse effects or allergic reactions to morphine or oxycodone in the past. Patient was given Zofran and Phenergan. Patient was given 2000 mL of normal saline. Patient with labs completed:Patient's hCG is negative. Patient's lipase is normal. Patient's lactate is 3.2. Patient with a CMP completed with glucose 56, potassium 3.6, chloride 108, bicarb 19, AST 54, ALT 39, alkaline phosphatase 105, with no other significant or critical findings on CMP. Patient with a CBC completed with RDW being 15.7 with no other significant or critical findings on CBC. Patient with a UA completed with no significant or critical findings. Patient with a CT scan to abdomen and pelvis completed with no acute findings per Radiology. Did discuss with patient concerning lab results and CT scan results with patient verbalizing understanding. Did discuss with patient to follow-up with nematologist and family physician in 2 days on Thursday. Patient was given explicit return precautions to the ED.patient verbalizes understanding of plan and agrees with plan with no further questions. Patient with by mouth challenge, no nausea or vomiting. Patient at discharge did ask for oxycodone 10 mg and also ask for 2 mg of Ativan, did speak with patient concerning sedating medication can affect her respiratory with causing respiratory distress or respiratory failure with patient verbalizing understand ing. Amount and/or Complexity of Data Reviewed Labs: ordered. Decision-making details documented in ED Course. Radiology: ordered. Decision-making details documented in ED Course. ED Prescriptions None Sign Off Checklist Clinical Impression: Complete ED Disposition: Complete - Claudio Herrera PA 10/18/221947 Cosigned by Carter Donis MD at 10/18/2022 10:55 PM EDT Associated attestation - Carter Donis MD - 10/18/2022 10:55 PM EDT The patient was seen only by Advanced Practice Provider (AJAY), and care was reviewed with me. * ED Triage Notes - González Capellan, RN - 10/18/2022 3:50 PM EDT Pt seen at [facility] Thursday for n/v/d and abd pain. Diarrhea resolved but still has n/v and worseningabd pain. documented in this encounter Plan of Treatment Not on file documented as of this encounter Procedures Procedure Name Priority Date/Time Associated Diagnosis Comments URINALYSIS WITH REFLEX MICROSCOPIC STAT 10/18/2022 7:31 PM EDT URINE CULTURE STAT 10/18/2022 7:[address] ABDOMEN PELVIS W IV CONTRAST STAT 10/18/2022 6:16 PM EDT LACTATE, VENOUS STAT 10/18/2022 4:47 PM EDT CBC W/O DIFFERENTIAL STAT 10/18/2022 4:47 PM EDT TEST QUALITATIVE PLASMA STAT 10/18/2022 4:47 PM EDT LIPASE, PLASMA STAT 10/18/2022 4:47 PM EDT COMPREHENSIVE METABOLIC PANEL, PLASMA STAT 10/18/2022 4:47 PM EDT documented in this encounter Results * (ABNORMAL) Urine culture- (clean catch) (10/18/2022 7:31 PM EDT) Culture 10,000 - 100,000 CFU/mL Mixed urogenital , fecal, or skin ángela present.(A ) 10/20/2022 1:38 PM EDT [facility] Urine Urine specimen obtained by clean catch procedure / Unknown Non-blood Collection / Unknown 10/18/2022 7:31 PM EDT 10/18/2022 7:34 PM EDT us Claudio NAJERA LAB MICROBIOLOGY - GENERAL ORDER STACIA Final Result [facility] [address] [place] [address] * Urinalysis with reflex microscopic (10/18/2022 7:31 PM EDT) Color, Urine Yellow LAB URINALYSIS - AUTOMATED METHOD 10/18/2022 7:37 PM EDT [facility] Clarity, Urine Clear LAB URINALYSIS - AUTOMATED METHOD 10/18/2022 7:37 PM EDT [facility] Spec [place], Urine <=1.005 <=1.005 to >=1.030 LAB URINALYSIS - AUTOMATED METHOD 10/18/2022 7:37 PM EDT [facility] pH, Urine 6.5 4.5 to 8 LAB URINALYSIS - AUTOMATED METHOD 10/18/2022 7:37 PM EDT [facility] Protein, Urine Negative Negative mg/dL LAB URINALYSIS - AUTOMATED METHOD 10/18/2022 7:37 PM EDT [facility] Glucose, Urine Negative Negative mg/dL LAB URINALYSIS - AUTOMATED METHOD 10/18/2022 7:37 PM EDT [facility] Ketones, Urine Negative Negative mg/dL LAB URINALYSIS - AUTOMATED METHOD 10/18/2022 7:37 PM EDT [facility] Blood, Urine Negative Negative LAB URINALYSIS - AUTOMATED METHOD 10/18/2022 7:37 PM EDT [facility] Bilirubin, Urine Negative Negative LAB URINALYSIS - AUTOMATED METHOD 10/18/2022 7:37 PM EDT [facility] Urobilinogen, Urine 0.2 0.2 to 1.0 mg/dL LAB URINALYSIS - AUTOMATED METHOD 10/18/2022 7:37 PM EDT [facility] Leukocytes, Urine Negative Negative LAB URINALYSIS - AUTOMATED METHOD 10/18/2022 7:37 PM EDT [facility] Nitrite, Urine Negative Negative LAB URINALYSIS - AUTOMATED METHOD 10/18/2022 7:37 PM EDT [facility] Urine Urine specimen obtained by clean catch procedure / Unknown Non-blood Collection / Unknown 10/18/2022 7:31 PM EDT 10/18/2022 7:34 PM EDT us Claudio NAJERA LAB URINE ORDERABLES Final Resul t [facility] [address] [place] [address] * CT Abdomen Pelvis w IV Contrast (10/18/2022 6:16 PM EDT) Anatomical Region Laterality Modality Abdomen, Pelvis Computed Tomogra phy Impressions 10/18/2022 6:23 PM EDT No acute findings. CRITICAL RESULT: ?? No. COMMUNICATION: Per this written report. Drafted by Dillon Pendleton MD on 10/18/2022 6:19 PM Final report signed by Dillon Pendleton MD on 10/18/2022 6:23 PM Narrative 10/18/2022 6:23 PM EDT CLINICAL INDICATION: Left upper quadrant and epigastric region abdominal pain with nausea and vomiting, TECHNIQUE: Imaging of the abdomen and pelvis was performed, from lung bases through pubic symphysis, using spiral technique, following administration of IV contrast, Omnipaque 300, 100 mL. Delayed (excretory phase) images were performed through the kidneys. Reformatted images in the coronal and sagittal planes were generated from the axial data set to facilitate diagnostic accuracy. Total DLP (Dose-Length Product): 1424.48 mGy.cm. Please note: The reported value represents the total of one or more individual components during the CT acquisition on this date and at this time, and as such, the same value may appear in more than one CT report depending on the interpreting/reporting physicians. COMPARISON: 09/19/2022 FINDINGS: No consolidation or effusion of the lower chest. The cardiac size is within normal limits, no pericardial effusion. No free abdominal gas. No pneumatosis of the hollow viscera, no mesenteric or portal venous gas. No free pelvic or abdominal fluid. Cholecystectomy. Liver, spleen, adrenals, pancreas without acute findings. No acute renal findings. No perigastric or periduodenal inflammation. No evidence of small bowel obstruction. Noninflamed appendix. No pericolonic inflammation. Pelvic viscera without acute findings. No concerning adenopathy. Aorta unremarkable, visceral and pelvic arteries are patent. Portal vein, SMV, splenic vein patent. No acute body wall findings. No aggressive osseous lesions or interval changes. Procedure Note Dillon Pendleton MD - 10/18/2022 CLINICAL INDICATION: Left upper quadrant and epigastric region abdominal pain with nausea andvomiting, TECHNIQUE: Imaging of the abdomen and pelvis was performed, from lung bases throughpubic symphysis, using spiral technique, following administration of IVcontrast, Omnipaque 300, 100 mL. Delayed (excretory phase) images wereperformed through the kidneys. Reformatted images in the coronal andsagittal planes were generated from the axial data set to facilitatediagnostic accuracy. Total DLP (Dose-Length Product): 1424.48 mGy.cm. Please note: The reportedvalue represents the total of one or more individual components during theCT acquisition on this date and at this time, and as such, the same valuemay appear in more than one CT report depending on theinterpreting/reporting physicians. COMPARISON: 09/19/2022 FINDINGS: No consolidation or effusion of the lower chest. The cardiac size iswithin normal limits, no pericardial effusion. No free abdominal gas. No pneumatosis of the hollow viscera, no mesentericor portal venous gas. No free pelvic or abdominal fluid. Cholecystectomy. Liver, spleen, adrenals, pancreas without acute findings.No acute renal findings. No perigastric or periduodenal inflammation. No evidence of small bowelobstruction. Noninflamed appendix. No pericolonic inflammation. Pelvic viscera without acute findings. No concerning adenopathy. Aorta unremarkable, visceral and pelvic arteries are patent. Portal vein,SMV, splenic vein patent. No acute body wall findings. No aggressive osseous lesions or interval changes. IMPRESSION: No acute findings. CRITICAL RESULT: No. COMMUNICATION: Per this written report. Drafted by Dillon Pendleton MD on 10/18/2022 6:19 PM Final report signed by Dillon Pendleton MD on 10/18/2022 6:23 PM Claudio NAJERA [facility] CT PROCEDURES Final Result * hCG, serum, qualitative (10/18/2022 4:47 PM EDT) [facility] Test Negative Negative 10/18/2022 5:21 PM EDT [facility] Blood Venous blood specimen / Unknown Venipuncture / Unknown 10/18/2022 4:47 PM EDT 10/18/2022 4:55 PM EDT Narrative [facility] - 10/18/2022 5:21 PM EDT Reference Range: Males and non- females: Negative. [employer] LAB BLOOD ORDERABLES Final Resul t Performing Organization Address City/[facility] [address]/[facility] de Phone Number [facility] [address] [place] [address] * (ABNORMAL) Lactate, venous (10/18/2022 4:47 PM EDT) Lactate, Venous, Whole Blood 3.2(H) 0.5 - 2.2 mmol/L LAB HEMATOLOGY METHOD 10/18/2022 4:59 PM EDT [facility] Blood Venous blood specimen / Unknown Venipuncture / Unknown 10/18/2022 4:47 PM EDT 10/18/2022 4:55 PM EDT [employer] LAB BLOOD ORDERABLES Final Resul t Performing Organization Address [facility] de Phone Number [facility] [address] [place] [address] * Lipase, Plasma (10/18/2022 4:47 PM EDT) Lipase, Plasma 38 19 - 63 U/L 10/18/2022 5:21 PM EDT [facility] Blood Venous blood specimen / Unknown Venipuncture / Unknown 10/18/2022 4:47 PM EDT 10/18/2022 4:55 PM EDT [facility] PA LAB BLOOD ORDERABLES Final Resul t Performing Organization Address [facility] [address]/[facility] de Phone Number [facility] [address] [place] [address] * (ABNORMAL) Comprehensive Metabolic Panel, Plasma (10/18/2022 4:47 PM EDT) Glucose, Plasma 56(L) 74 - 99 mg/dL 10/18/2022 5:21 PM EDT [facility] BUN, Plasma 5(L) 7 - 21 mg/dL 10/18/2022 5:21 PM EDT [facility] Creatinine, Plasma 0.56(L) 0.60 - 1.10 mg/dL 10/18/2022 5:21 PM EDT [facility] BUN/Creatinine Ratio 9 10/18/2022 5:21 PM EDT [facility] Sodium, Plasma 141 136 - 145 mmol/L 10/18/2022 5:21 PM EDT [facility] Potassium, Plasma 3.6(L) 3.7 - 4.8 mmol/L 10/18/2022 5:21 PM EDT [facility] Chloride, Plasma 108(H) 97 - 107 mmol/L 10/18/2022 5:21 PM EDT [facility] CO2, Plasma 19(L) 22 - 29 mmol/L 10/18/2022 5:21 PM EDT [facility] Anion Gap 14 6 - 16 mmol/L 10/18/2022 5:21 PM EDT [facility] Total Calcium, Plasma 9.1 8.9 - 10.2 mg/dL 10/18/2022 5:21 PM EDT [facility] Total Protein 6.9 6.3 - 7.9 g/dL 10/18/2022 5:21 PM EDT [facility] Albumin, Plasma 4.2 3.5 - 5.2 g/dL 10/18/2022 5:21 PM EDT [facility] AST, Plasma 54(H) 10 - 35 U/L 10/18/2022 5:21 PM EDT [facility] ALT, Plasma 39(H) 10 - 35 U/L 10/18/2022 5:21 PM EDT [facility] Alkaline Phosphatase, Plasma 106(H) 35 - 104 U/L 10/18/2022 5:21 PM EDT [facility] Total Bilirubin, Plasma <0.2(L) 0.2 - 1.1 mg/dL 10/18/2022 5:21 PM EDT [facility] eGFRcr 122.2 mL/min/1.7 3m*2 10/18/2022 5:21 PM EDT [facility] Comment:Reported eGFRcr in m L/min/1.73m2 is based the CKD-EPI 2020 equation that does not use a race coefficient. Blood Venous blood specimen / Unknown Venipuncture / Unknown 10/18/2022 4:47 PM EDT 10/18/2022 4:55 PM EDT Claudio NAJERA LAB BLOOD ORDERABLES Final Resul t [facility] [address] [place] [id number] * (ABNORMAL) CBC W/O Differential (10/18/2022 4:47 PM EDT) WBC Count 5.43 3.70 - 10.30 10*3/uL LAB HEMATOLOGY METHOD 10/18/2022 4:58 PM EDT [facility] RBC Count 4.41 3.90 - 5.20 10*6/uL LAB HEMATOLOGY METHOD 10/18/2022 4:58 PM EDT [facility] HGB 11.6 11.2 - 15.7 g/dL LAB HEMATOLOGY METHOD 10/18/2022 4:58 PM EDT [facility] HCT 35.8 34.0 - 45.0 % LAB HEMATOLOGY METHOD 10/18/2022 4:58 PM EDT [facility] Platelet Count 198 155 - 369 10*3/uL LAB HEMATOLOGY METHOD 10/18/2022 4:58 PM EDT [facility] MCV 81 79 - 98 fL LAB HEMATOLOGY METHOD 10/18/2022 4:58 PM EDT [facility] MCH 26.3 26.0 - 32.0 pg LAB HEMATOLOGY METHOD 10/18/2022 4:58 PM EDT [facility] MCHC 32.4 30.7 - 35.5 g/dL LAB HEMATOLOGY METHOD 10/18/2022 4:58 PM EDT [facility] RDW 15.7(H) 11.5 - 14.5 % LAB HEMATOLOGY METHOD 10/18/2022 4:58 PM EDT [facility] MPV 9.8 8.8 - 12.5 fL LAB HEMATOLOGY METHOD 10/18/2022 4:58 PM EDT [facility] nRBC 0.0 <=0.0 per 100 WBCs LAB HEMATOLOGY METHOD 10/18/2022 4:58 PM EDT [facility] Blood Venous blood specimen / Unknown Venipuncture / Unknown 10/18/2022 4:47 PM EDT 10/18/2022 4:55 PM EDT Claudio NAJERA LAB BLOOD ORDERABLES Final Resul t [facility] [address] [place] [address] documented in this encounter Visit Diagnoses Diagnosis Abdominal pain, generalized- Primary Nausea and vomiting, unspecified vomiting type documented in this encounter Administered Medications Inactive Administered Medications - up to 3 most recent administrations Medication Order MAR Action Action Date Dose Rate Site iohexol (OMNIPaque) 300 MG/ML injection 100 mL 100 mL, Intravenous, Once in imaging, 1 dose, Starting on 10/18/22 at 1731, Until 10/18/22 at 1805, Routine, Imaging Protocol Orders Given 10/18/2022 6:05 PM EDT 100 mL morphine PF 2 mg 2 mg, Intravenous, Once, 1 dose, On 10/18/22 at 1840, STAT Given 10/18/2022 6:45 PM EDT 2 mg morphine PF 4 mg 4 mg, Intravenous, Once, 1 dose, On 10/18/22 at 1650, STAT Given 10/18/2022 4:52 PM EDT 4 mg ondansetron (Zofran) injection 4 mg 4 mg, Intravenous, Once, 1 dose, On 10/18/22 at 1625, STAT Given 10/18/2022 4:44 PM EDT 4 mg oxyCODONE (Roxicodone) immediate release tablet 5 mg 5 mg, Oral, Once, 1 dose, On 10/18/22 at 1940, STAT Given 10/18/2022 7:44 PM EDT 5 mg promethazine (Phenergan) injection 12.5 mg 12.5 mg, Intravenous, Once, 1 dose, On 10/18/22 at 1840, STAT Given 10/18/2022 6:45 PM EDT 12.5 mg sodium chloride 0.9 % infusion 1,000 mL 1,000 mL, Intravenous, Once, 1 dose, On 10/18/22 at 1655, STAT New Bag 10/18/2022 4:52 PM EDT 1,000 mL sodium chloride 0.9 % infusion 1,000 mL 1,000 mL, Intravenous, Once, 1 dose, On 10/18/22 at 1705, STAT New Bag 10/18/2022 6:33 PM EDT 1,000 mL documented in this encounter Active and Recently Administered Medications Times are shown in EDT. Scheduled Medication Order 10/16/2022 10/17/2022 10/18/2022 iohexol (OMNIPaque) 300 MG/ML injection 100 mL (COMPLETED) 100 mL, Intravenous, Once in imaging, 1 dose, Starting on 10/18/22 at 1731, Until 10/18/22 at 1805, Routine, Imaging Protocol Orders 180 (Given - Provid er: Nicholas Cunha) morphine PF 2 mg (COMPLETED) 2 mg, Intravenous, Once, 1 dose, On 10/18/22 at 1840, STAT 184 (Given - Provid er: Lashon Bolden) morphine PF 4 mg (COMPLETED) 4 mg, Intravenous, Once, 1 dose, On 10/18/22 at 1650, STAT 165 (Given - Provid er: Lashon Bolden) ondansetron (Zofran) injection 4 mg (COMPLETED) 4 mg, Intravenous, Once, 1 dose, On 10/18/22 at 1625, STAT 1644 (Given - Provid er: Lashon Bolden) oxyCODONE (Roxicodone) immediate release tablet 5 mg (COMPLETED) 5 mg, Oral, Once, 1 dose, On 10/18/22 at 1940, STAT 1944 (Given - Provid er: Lashon Bolden) promethazine (Phenergan) injection 12.5 mg (COMPLETED) 12.5 mg, Intravenous, Once, 1 dose, On 10/18/22 at 1840, STAT 1845 (Given - Provid er: Lashon Bolden) sodium chloride 0.9 % infusion 1,000 mL (COMPLETED) 1,000 mL, Intravenous, Once, 1 dose, On 10/18/22 at 1655, STAT 165 (New Bag - Prov ider: Lashon Bolden)1833 (Stopped - Provider: Lashon Bolden) sodium chloride 0.9 % infusion 1,000 mL (COMPLETED) 1,000 mL, Intravenous, Once, 1 dose, On 10/18/22 at 1705, STAT 1833 (New Bag - Prov ider: Lashon Bolden)1940 (Stopped - Provider: Lashon Bolden) documented in this encounter Additional Health Concerns Assessment Noted Time A fall risk assessment has been complete d for the patient 11/21/2020 2:30 PM EDT documented as of this encounter Care Teams Teletype Or Var[employer]pe Keyboard Operator Relationship Specialty Start Date End Date Elmo Escobar MD PCP - General 10/18/20 01/05/23 documented as of this encounter
--- OUTSIDE RECORDS SUMMARY | 2024-02-03 15:20 | XMS_ITS | Encounter Summary ---
Author Organization Healthcare Address [address] [id number] Care Team Providers Care Game Designer/Creative Director Name Role Phone Elmo Escobar MD Primary Care Provider [phone] Reason for Referral * Consultation (Routine) - Authorized Specialty Diagnoses / Procedures Referred By Susy burks Referred To Contact Primary Care Diagnoses Other chronic pain Epigastric pain Sandhya Rae MD [address] [place] [address] Phone: tel: fax: [address] [address] Phone: tel: Referral ID Status Reason Start Date Expiration Date Visits Requested Visits Authorized [id number] Authorized Specialty Services Required 09/26/2022 03/27/2024 1 1 Reason for Visit * Reason Comments Abdominal Pain * Auth/Cert (Routine) Specialty Diagnoses / Procedures Referred By Susy burks Referred To Contact Diagnoses Acute on chronic pancreatitis (CMS/HCC) Aysha Leija MD [address] [place] [address] Phone: tel: fax: [facility] Emergency Department [address] [place] [address] Phone: tel: Referral ID Status Reason Start Date Expiration Date Visits Re quested Visits Authorized [id number] 1 1 Encounter Details Date Type Department Care Team (Late st Contact Info) Description 09/25/2022 5:59 PM EDT - 09/27/2022 2:44 AM EDT Emergency PAV S Inpatient [address] 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) to steady your nerves or to [...] Sign Reading Time Taken Comments Blood Pressure 121/78 09/26/2022 11:03 PM EDT Pulse 101 09/26/2022 11:03 PM EDT Temperature 36.8 ??C (98.2 ??F) 09/26/2022 11:03 PM E DT Respiratory Rate 16 09/26/2022 4:43 PM EDT Oxygen Saturation 94% 09/26/2022 11:03 PM EDT Inhaled Oxygen Concentration - - Weight 115 kg (253 lb 8.5 oz) 09/26/2022 8:00 AM EDT per EMR Height 165.1 cm (5' 5 ) 09/26/2022 8:00 AM EDT p er EMR Body Mass Index 42.19 09/26/2022 8:00 AM EDT documented in this encounter Medications [...] as of this encounter Miscellaneous Notes * Significant Event - Leny Tee APRN - 09/27/2022 3:05 AM EDT Timeline of events starting 09/27/2022 at 7:00 p.m.: - Patient requested lipase redraw at 7:00 p.m. due to increased pain, ordered (level decreased to 29) - RN messaged me again aunt [phone] patient reported being in increased pain despite p.r.n. Dilaudid and oxycodone. Patient requested to eat a candy bar and then have lipase redrawn to see if it went upso she could get more pain medication. RN explained to patient how this was counterproductive. - I went upstairs to speak to the patient around midnight and she was very tearful saying that she was in an extensive amount of pain and that no one would work with her. RN reports that patient has made multiple calls down to the ED to see if she could leave and go down to the emergency departmentto get more pain medication because she did not feel her pain is being adequately treated on the floor. After extensive conversation with the patient she agreed to try an extra 5 mg of oral oxycodone. I informed the patient that we would not be increasing Dilaudid dose from 0.25 mg q.4 hours p.r.n.in an attempt to wean her down to medications she could actually go home on. Patient expressed understanding at this time. - I was called by a nursing to report patient signed AMA paperwork at around 1:30 a.m. and left thehospital. Leny Tee RAIL GRINDER [facility] Medicine * Addendum Note - Sandhya Rae MD - 09/27/2022 2:44 AM EDTEncounter addended by: Sandhya Rae MD on: 10/23/2022 3:19 PM Actions taken: Pend clinical note * Addendum Note - Sandhya Rae MD - 09/27/2022 2:44 AM EDTEncounter addended by: Sandhya Rae MD on: 11/13/2022 11:48 AM Actions taken: Clinical Note Signed * Discharge Summary - Sandhya Rae MD - 09/27/2022 2:44 AM EDT Hospitalization Admit Date/Time: 09/25/2022 5:59 PM Admitting Attending: Aysha Leija Discharge Date: 09/27/2022 Discharge Attending Physician: Sandhya Rae MD PCP name and Address: Elmo Escobar MD [address] [place] [address] / [address] [address] Referring provider name and address: No referring provider defined for this encounter. Chief Concern, Brief History of Present Illness, and Hospital Course 36 y.o. female who presented to [facility] with complaints of abdominal pain, nausea and vomiting. Their past medical history is significant for anxiety, arthritis, depression, fibromyalgia, GERD, hypertension, and recurrent pancreatitis. Patient is seen in the ED at the time of evaluation. History is obtained from patient and supplemented by medical record review. Patient was recently admitted from 09/14 - 09/20 d/t acute pancreatitis. She states that when she was discharged she continued to have pain but felt that it was tolerable with her home oxycodone. Shestates that she ate 2 burritos from [employer] 09/24 PM and reports onset of N/V/D and acute worsening in her LUQ abdominal pain 09/25 AM. She states that her pain is aching with intermittent sharp stabbing. She states that it radiates between her epigastric area and LUQ. She denies radiation to herback. It is worse with palpation. She denies relief or change with vomiting. She states her pain isnot currently controlled with PO oxycodone. She states her nausea and vomiting is controlled with Zofran. Patient also reports onset of diarrhea 09/25. She denies any other acute complaints. She requests assistance with nutrition and diet ideas so that she can be adherent to a low fat diet in a waythat allows her to cook for herself and her family. She acknowledges that her diet may be playing aroll in her recurrent pain and continued pain at home. Hospital Course Patient with recurrent admissions for same symptoms, extensive inpatient evaluation by multiple services. Patient is non adherent to follow up and repeatedly states the only thing that helps her are high doses of iv and po opioids in patient. I offered multiple times evaluation by [facility] and arranging for pain clinic follow up however she declined stating they will not help her. Engaged with her rosa very extensive conversation educating about the high risk behavior and the benefits of therapy however she still insisted that inpatient iv and po opioids is the only answer. Patient exhibiting malingering behavior such as going to the cafeteria to eat fatty meals and asking for candy and then asking to check her labs. She eventually decided to leave AMA since she was not given the doses she asked for. Please refer to AJAY note and nurse note on the night she left AMA. # Abdominal pain with n/v/d suspected recurrent pancreatitis c/b non-adherence to low fat diet-POA -on chart review multiple admissions for same symptoms extensive workup unrevealing. Highly sustpect this is a functional abdominal pain rather than acute flare of pancreatitis. Endorses last GI follow up recommended increase dose of PPI as gastritis or ulcer exacerbation suspected. - Continued abdominal pain after last admission (discharged 09/14) she feels she was not ready and discharged prematurely -this time pain worse 09/25 about 12 hours after eating burritos from [employer] - continue IVF hydration, NPO as patient endorses worsening pain with Jello (CLD) - Pain control: [id number] mg PO q 4 PRN + hydromorphone 0.25 mg IVP q 4 PRN + acetaminophen 500 mg PO q 4 PRN -Patient requesting 1mg of dilaudid q3hrs and 10 mg of oxy q4hrs as that is the usual and the only thing that controls her pain. States the good doctors give me that and its what works . - Zofran PRN q 6 PRN N/V - Continue Creon (prescribed by PCP) when po intake resumes - Nutrition consulted per patient request for sheet on low fat diet to promote adherence at home with her children. This was also provided on most recent admission. -no diarrhea or vomiting since admission -will monitor am labs and if pain improving will start CLD. # Hypertension-POA - No antihypertensives at baseline - Monitor and trend VS - Will treat sustained SBP>180 with PRN agents as appropriate - If persistently elevated while inpatient may require initiation of PO agent # Fibromyalgia-POA - Resume home Lyrica # Major Recurrent Moderate Depression and anxiety-POA - Holding amitriptyline --- lorazepam filled 2 mg on 09/25/2022 spoke with PCP and only given for 7 days and no refills. - gave one time dose of Ativan 2mg - Continue Buspar # Obesity-POA - BMI 42 - Diet and exercise education at time of discharge - Complicates all aspects of care # GERD-POA - Continue PPI BID per GI # Marijuana use-POA - Advise cessation given risk of hyperemesis # Nicotine dependence with withdrawals -POA - Tobacco cessation education - Nicotine replacement therapy provided upon request #Medical non adherence-POA -does not follow recommended diet which exacerbates condition -in spite of multiple times recommended upon discharge to follow up with pain clinic she states they are not going to help her. -complicates all aspects of care Surgeries and Procedures Medication List . acetaminophen [...] by mouth 1 (one) time each day. Ask about: Should I take this medication? levoFLOXacin 750 MG tablet Commonly known as: Levaquin Take 1 tablet (750 mg) by mouth 1 (one) time each day for 5 days. Ask about: Should I take this medication? ondansetron ODT 4 MG disintegrating tablet Commonly [...] hours if needed for nausea or vomiting. vitamin C 250 MG tablet Take 1 tablet (250 mg) by mouth 1 (one) time each day. Discharge Diagnosis Medical Problems Active and Resolved Hospital Problems Hospital Fibromyalgia (Chronic) GERD (gastroesophageal reflux disease) (Chronic) Anxiety * (Principal) Acute on chronic pancreatitis (CMS/HCC) Hypertension Nicotine dependence Depression Diarrhea of presumed infectious origin Marijuana use Post Discharge Instructions Outpatient Follow-Up No future appointments. Test Results Pending At Discharge Pertinent Physical Exam At Time of Discharge Physical Exam Unchanged from day exam in progress note Vitals and nursing note reviewed. Constitutional: General: She is not in acute distress. Appearance: She is obese. She is not toxic-appearing. HENT: Nose: Nose normal. Mouth/Throat: Mouth: Mucous membranes are moist. Eyes: Extraocular Movements: Extraocular movements intact. Cardiovascular: Rate and Rhythm: Normal rate and regular rhythm. Heart sounds: Normal heart sounds. Pulmonary: Effort: Pulmonary effort is normal. Breath sounds: Normal breath sounds. Abdominal: General: Bowel sounds are normal. Palpations: Abdomen is soft. Tenderness: There is no abdominal tenderness. There is no guarding or rebound. Musculoskeletal: General: Normal range of motion. Cervical back: Normal range of motion and neck supple. Skin: General: Skin is warm. Neurological: General: No focal deficit present. Mental Status: She is alert and oriented to person, place, and time. Psychiatric: Mood and Affect: Mood is anxious. Affect is labile. Behavior: Behavior normal. Discharge Disposition/Condition Disposition: Against Medical Advice Condition: Stable (s/sx potential problems absent or manageable) I spent >30 minutes of patient care and instruction time in preparation for this discharge. * Progress Notes - Sandhya Rae MD - 09/26/2022 6:54 PM EDT Subjective Seen and examined at bedside @ ED. Patient complaining of 10/10 abdominal pain no vomiting no diarrhea since admission. State pain worse with eating, discussed changing to NPO for bowel rest as food is exacerbating pain. Patient requesting 1mg of dilaudid q3hrs and 10 mg of oxy q4hrs as that is the usual and the only thing that controls her pain. Offered other alternatives and explained import ance of follow up with GI and pain clinic which she states has not been able to do because she is always in the hospital for same symptoms. Labs remarkable for Lipase 127, no leukocytosis no BUN elevation K 4.9 CO2 20, afebrile, VS stable. No imaging but most recent for last admission was unremarkable for acute or chronic pancreatitis. Review of Systems Constitutional: Positive for appetite change. Negative for chills and fever. HENT: Negative. Eyes: Negative. Respiratory: Negative for shortness of breath and wheezing. Cardiovascular: Negative for chest pain, palpitations and leg swelling. Gastrointestinal: Positive for abdominal pain and nausea. Negative for abdominal distention and diarrhea. Genitourinary: Negative. Musculoskeletal: Negative for arthralgias and myalgias. Skin: Negative for pallor. Neurological: Negative. Psychiatric/Behavioral: The patient is nervous/anxious. Objective Physical Exam Vitals and nursing note reviewed. Constitutional: General: She is not in acute distress. Appearance: She is obese. She is not toxic-appearing. HENT: Nose: Nose normal. Mouth/Throat: Mouth: Mucous membranes [...] and neck supple. Skin: General: Skin is warm. Neurological: General: No focal deficit present. Mental Status: She is alert and oriented to person, place, and time. Psychiatric: Mood and Affect: Mood is anxious. Affect is labile. Behavior: Behavior normal. Last Recorded Vitals Blood pressure (!) 131/90, pulse 93, temperature 36.6 ??C (97.9 ??F), temperature source Oral, resp. rate 16, height 1.651 m (5' 5 ), weight 115 kg (253 lb 8.5 oz), SpO2 98 %, not currently . Assessment/Plan Principal Problem: Acute on chronic pancreatitis (CMS/HCC) Active Problems: Anxiety Fibromyalgia GERD (gastroesophageal reflux disease) Hypertension Nicotine dependence Depression Diarrhea of presumed infectious origin Marijuana use # Abdominal pain with n/v/d suspected recurrent pancreatitis c/b non-adherence to low fat diet-POA -on chart review multiple admissions for same symptoms extensive workup unrevealing. Highly sustpect this is a functional abdominal pain rather than acute flare of pancreatitis. Endorses last GI follow up recommended increase dose of PPI as gastritis or ulcer exacerbation suspected. - Continued abdominal pain after last admission (discharged 09/14) she feels she was not ready and discharged prematurely -this time pain worse 09/25 about 12 hours after eating burritos from [employer] - continue IVF hydration, NPO as patient endorses worsening pain with Jello (CLD) - Pain control: [id number] mg PO q 4 PRN + hydromorphone 0.25 mg IVP q 4 PRN + acetaminophen 500 mg PO q 4 PRN -Patient requesting 1mg of dilaudid q3hrs and 10 mg of oxy q4hrs as that is the usual and the only thing that controls her pain. States the good doctors give me that and its what works . - Zofran PRN q 6 PRN N/V - Continue Creon (prescribed by PCP) when po intake resumes - Nutrition consulted per patient request for sheet on low fat diet to promote adherence at home with her children. This was also provided on most recent admission. -no diarrhea or vomiting since admission -will monitor am labs and if pain improving will start CLD. # Hypertension-POA - No antihypertensives at baseline - Monitor and trend VS - Will treat sustained SBP>180 with PRN agents as appropriate - If persistently elevated while inpatient may require initiation of PO agent # Fibromyalgia-POA - Resume home Lyrica # Major Recurrent Moderate Depression and anxiety-POA - Holding amitriptyline --- lorazepam filled 2 mg on 09/25/2022 spoke with PCP and only given for 7 days and no refills. - gave one time dose of Ativan 2mg - Continue Buspar # Obesity-POA - BMI 42 - Diet and exercise education at time of discharge - Complicates all aspects of care # GERD-POA - Continue PPI BID per GI # Marijuana use-POA - Advise cessation given risk of hyperemesis # Nicotine dependence with withdrawals -POA - Tobacco cessation education - Nicotine replacement therapy provided upon request #Medical non adherence-POA -does not follow recommended diet which exacerbates condition -in spite of multiple times recommended upon discharge to follow up with pain clinic she states they are not going to help her. -complicates all aspects of care * Progress Notes - Marybeth Lopez - 09/26/2022 6:25 PM EDT Case Management Adult Progress Note Lila Mcnally 36 y.o. female CSN: [id number] Admission: 09/25/2022 5:59 PM Primary Problem: Acute on chronic pancreatitis (CMS/HCC) SW CM reviewed chart and met with provider. Provider reports pt NMR for d/c at this time. Pt is a new admit. SW CM will attempt to complete initial assessment over the course of the weekend. Providernotes that as of now, pt has now CM concerns or needs. SW CM will continue to follow and assist as needed. Marybeth Lopez OVERNIGHT HOUSEPERSON, STRATEGIC ACCOUNT MANAGER * Nursing Note - Agnes Prescott LPN - 09/26/2022 5:31 PM EDT Patient complaining pain 10/10 gave pain medication and pt ambulated off unit to go get mother foodthen went to [facility] to visit mom who is a patient on that floor. Pt ambulated with no s/s of distress. * Consults - Barb Jansen RD - 09/26/2022 8:36 AM EDTAssociated Order(s): IP CONSULT TO NUTRITION SERVICES Adult Nutrition Evaluation Note Lila Mcnally 36 y.o. female CSN: [id number] Room/Bed 06/27 Nutrition evaluation type: assessment Reason for evaluation: provider consult Hospital course: 36 y/o F admitted 09/25 for recurrent pancreatitis Past medical/ surgical history: Past Medical History: Diagnosis Date Anxiety Arthritis Depression Fibromyalgia GERD (gastroesophageal reflux disease) Hypertension Nicotine dependence Obesity Pancreatitis Past Surgical History: Procedure Laterality Date CHOLECYSTECTOMY ERCP ESOPHAGOGASTRODUODENOSCOPY HAND SURGERY Additional comments: 09/26: Pt in ED Vitals and Basic Assessment: BP: (!) 146/99 Temp: 36.7 ??C (98.1 ??F) Oxygen Therapy: None (Room air) [place] Coma Scale Score: 15 Scott Scale Score: 21 GI Symptoms: Cramping, Nausea Skin: wound to right leg Allergies: no known food allergies Medications: ascorbic acid, 250 mg, Oral, Daily busPIRone, 10 mg, Oral, BID cholecalciferol, 2,000 Units, Oral, Daily cyanocobalamin, 1,000 mcg, Oral, Daily pancrelipase (Fjs-Chzk-Lgle), 1 capsule, Oral, TID with meals pantoprazole, 40 mg, Oral, Daily lactated Ringer's, 100 mL/hr, Last Rate: 100 mL/hr (09/26/22 0002) PRN medications: acetaminophen, HYDROmorphone, hydrOXYzine pamoate, ondansetron ODT, oxyCODONE OR oxyCODONE, prochlorperazine, [COMPLETED] Insert peripheral IV AND [COMPLETED] Saline lock IV AND sodium chloride AND sodium chloride Labs: Lab Results Component Value Date WBC 7.33 09/26/2022 HGB 12.0 09/26/2022 HCT 37.5 09/26/2022 MCV 81 09/26/2022 PLT 270 09/26/2022 Lab Results Component Value Date GLUCOSE 98 09/26/2022 CALCIUM 9.0 09/26/2022 NA 134 (L) 09/26/2022 K 4.1 09/26/2022 CO2 24 09/26/2022 CL 100 09/26/2022 BUN 5 (L) 09/26/2022 CREATININE 0.62 09/26/2022 PHOS 3.8 09/26/2022 MG 2.2 09/26/2022 HGBA1C 5.3 10/18/2020 Lab Results Component Value Date ALT 33 09/25/2022 AST 34 (H) 09/25/2022 ALKPHOS 114 (H) 09/25/2022 BILITOT <0.2 (L) 09/25/2022 Anthropometrics: Height: 165.1 cm (5' 5 ) (per EMR) Weight: 115 kg (253 lb 8.5 oz) (per EMR) BMI (Calculated): 42.19 Weight Evaluation: Extreme Obesity (BMI > 40) [place] Body Weight (kg): 56.8 Percent [place] Body Weight: 202 Adjusted Body Weight (kg): 71.4 Wt Readings from Last 10 Encounters: 09/26/22 115 kg (253 lb 8.5 oz) 09/20/22 115 kg (254 lb 3.1 oz) 08/08/22 112 kg (247 lb 12.8 oz) 07/24/22 112 kg (247 lb 12.8 oz) 07/11/22 110 kg (243 lb 9.7 oz) 06/23/22 108 kg (237 lb 10.5 oz) 06/19/22 110 kg (241 lb 10 oz) 06/14/22 108 kg (238 lb 8.6 oz) 06/11/22 104 kg (229 lb 4.5 oz) 05/22/22 103 kg (226 lb 10.1 oz) Estimated Needs: Current Nutrition Intake: Diet Order: Adult Diet Diet Texture: Clear liquid Percent Meals Eaten (%): Establishing trends Diet Experience and Nutrition History: Diet Education Provided: Will monitor Pertinent home medications: Nutrition Focused Physical Exam: Unable to Complete Exam: Unable to access exam locations Physical exam performed on (date): TBD Assessment of Malnutrition: Nutrition Problem: Inadequate energy intake related to current clinical status as evidenced by CLD does not meet EER. Status of Nutrition Diagnosis: New Nutrition Interventions and Recommendations: - Continue clear liquid diet as tolerated -- Advance to low fat diet when appropriate - Will add Boost Breeze TID to supplement PO intakes while on clear liquids - Rec MVI with mineral daily. - Rec obtaining weight 1x/week. Nutrition Monitoring and Goals: - Will monitor PO intake, weight status, lab results, GI tolerance, and skin integrity. - Pt will tolerate >75% avg of meal intakes. - Pt will maintain weight this admission. - Pt will have adequate source of nutrition by next follow up. Acuity Level: [address], LD * H&P - Lisa Helton APRN - 09/25/2022 11:40 PM EDTAssociated Order(s): Consult to [facility] Medicine [facility] Consult to [facility] Medicine [facility] Consult performed by: Lisa Helton APRN Consult ordered by: Agnes Cooley MD Reason for consult: Admission Assessment/Recommendations: See below History of Present Illness: Lila Mcnally is a 36 y.o. female who presented to [facility] with complaints of abdominal pain, nausea and vomiting. Their past medical history is significant for anxiety, arthritis, depression, fibromyalgia, GERD, hypertension, and recurrent pancreatitis. Patient is seen in the ED at the time of evaluation. History is obtained from patient and supplemented by medical record review. Patient was recently admitted from 09/14 - 09/20 d/t acute pancreatitis. She states that when she was discharged she continued to have pain but felt that it was tolerable with her home oxycodone. Shestates that she ate 2 burritos from [employer] 09/24 PM and reports onset of N/V/D and acute worsening in her LUQ abdominal pain 09/25 AM. She states that her pain is aching with intermittent sharp stabbing. She states that it radiates between her epigastric area and LUQ. She denies radiation to herback. It is worse with palpation. She denies relief or change with vomiting. She states her pain isnot currently controlled with PO oxycodone. She states her nausea and vomiting is controlled with Zofran. Patient also reports onset of diarrhea 09/25. She denies any other acute complaints. She requests assistance with nutrition and diet ideas so that she can be adherent to a low fat diet in a waythat allows her to cook for herself and her family. She acknowledges that her diet may be playing aroll in her recurrent pain and continued pain at home. Review of Systems: Review of Systems Constitutional: Negative for activity change, appetite change, chills, fatigue and fever. HENT: Negative for sore throat. Respiratory: Negative for cough and shortness of breath. Cardiovascular: Negative for chest pain, palpitations and leg swelling. Gastrointestinal: Positive for abdominal pain, diarrhea, nausea and vomiting. Negative for abdominal distention and constipation. Genitourinary: Negative for decreased urine volume and dysuria. Musculoskeletal: Negative. Skin: Negative. Neurological: Negative for dizziness. Hematological: Does not bruise/bleed easily. Psychiatric/Behavioral: Negative for confusion. Past Medical History: Past Medical History: Diagnosis Date Anxiety Arthritis Depression Fibromyalgia GERD (gastroesophageal reflux disease) Hypertension Nicotine dependence Obesity Pancreatitis Pertinent Immunization History: Immunization History Administered Date(s) Administered Influenza, injectable, quadrivalent, preservative free 11/21/2019, 12/27/2020, 01/20/2022 Moderna COVID-19 Vaccine (Health Education Specialist) 12+ years 06/11/2020, 07/05/2020 Pfizer-BioNTech COVID-19 Vaccine (Purple Cap) 12+ 02/10/2021 Tdap 06/25/2021 Current Home medications: Prior to Admission medications Medication Sig Start Date End Date Taking? Authorizing Provider acetaminophen (Tylenol) 500 MG tablet Take 2 tablets (1,000 mg) by mouth every 6 (six) hours if needed for pain. Alma Andujar MD amitriptyline (Elavil) 25 MG tablet Take 1 tablet (25 mg) by mouth every night. 07/24/22 07/24/23 Francesca Perdomo MD Ascorbic Acid (vitamin C) 250 MG tablet Take 1 tablet (250 mg) by mouth 1 (one) time each day. Alma Andujar MD busPIRone (Buspar) 10 MG tablet Take 1 tablet (10 mg) by mouth 2 (two) times a day. 09/20/22 09/20/23Kena Powers DO cholecalciferol (Vitamin D-3) 50 MCG (2000 UT) capsule Take 1 capsule (2,000 Units) by mouth 1 (one) time each day. Alma Andujar MD cyanocobalamin 1000 MCG tablet Take 1 tablet (1,000 mcg) by mouth 1 (one) time each day. Alma Andujar MD ibuprofen 200 MG tablet Take 3 tablets (600 mg) by mouth every 6 (six) hours if needed for mild pain. Alma Andujar MD lactulose (Chronulac) 10 GM/15ML solution Take 30 mL (20 g) by mouth 1 (one) time each day. Kena Powers DO levoFLOXacin (Levaquin) 750 MG tablet Take 1 tablet (750 mg) by mouth 1 (one) time each day for 5 days. 09/21/22 09/26/22 Kena Powers DO naloxone (Narcan) 4 mg/0.1 mL nasal spray 1. Give 1 spray in nostril for no/slow breathing or cannot wake after opioid use 2. Call 911 3. Repeat in other nostril if symptoms continue Call 911. Give 4mg (1 spray) into one nostril. Repeat every 2-3 minutes as needed, alternating nostrils, until medical assistance arrives. 09/17/22 09/17/23 Shante Horton MD ondansetron ODT (Zofran-ODT) 4 MG disintegrating tablet Take 1 tablet (4 mg) by mouth every 8 (eight) hours if needed for nausea or vomiting. Alma Andujar MD oxyCODONE-acetaminophen (Percocet) 10-325 MG tablet Take 1 tablet by mouth every 6 (six) hours if needed for severe pain for up to 3 days. 09/20/22 09/23/22 Kena Powers DO Pancrelipase, Lfn-Ieam-Ywyg, (CREON PO) Take 1 capsule by mouth 3 (three) times a day before meals.6,000 - 19,000 - 30,000 units Alma Andujar MD pantoprazole (Protonix) 40 MG EC tablet Take 1 tablet (40 mg) by mouth 1 (one) time each day. Do not crush, chew, or split. Alma Andujar MD pregabalin (Lyrica) 300 MG capsule Take 1 capsule (300 mg) by mouth 2 (two) times a day. Alma Anduajr MD prochlorperazine (Compazine) 10 MG tablet Take 1 tablet (10 mg) by mouth every 6 (six) hours if needed for nausea or vomiting. Alma Andujar MD promethazine (Phenergan) 25 MG tablet Take 1 tablet (25 mg) by mouth every 8 (eight) hours if needed for nausea or vomiting for up to 11 doses. 08/08/22 Emily Dominguez PA sucralfate (Carafate) 1 GM/10ML suspension Take 10 mL (1 g) by mouth 4 (four) times a day. Alma Andujar MD Past Surgical History: Past Surgical History: Procedure Laterality Date CHOLECYSTECTOMY ERCP ESOPHAGOGASTRODUODENOSCOPY HAND SURGERY Family History: Family History Problem Relation Name Age of Onset Hypertension Mother No Known Problems Father Social History: Tobacco: Social History Tobacco Use Smoking Status Every Day Packs/day: 1.00 Years: 15.00 Total pack years: 15.00 Types: Cigarettes Smokeless Tobacco Never Vaping Use Vaping Use: Never used EtOH: Social History Substance and Sexual Activity Alcohol Use Not Currently Illicits: Social History Substance and Sexual Activity Drug Use Yes Types: Marijuana Comment: a few times a month Lives: with spouse and 3 children in [place]. Allergies: Droperidol and Tramadol Current Hospital Medications: Medications reviewed and are appropriate Vital Signs: Visit Vitals BP (!) 165/98 (BP Location: Right arm, Patient Position: Lying) Pulse 110 Temp 36.7 ??C (98 ??F) (Oral) SpO2 92% No intake or output data in the 24 hours ending 09/25/22 2340 Physical Exam: Physical Exam Vitals reviewed. Constitutional: General: She is sleeping. She is not in acute distress. Appearance: She is well-developed. She is obese. Comments: Initially confused upon waking, required reorientation multiple times prior to becoming baseline. HENT: Head: Normocephalic and atraumatic. Right Ear: Hearing normal. Left Ear: Hearing normal. Nose: Nose normal. Mouth/Throat: Lips: Piru. Mouth: Mucous membranes are moist. Eyes: Extraocular Movements: Extraocular movements intact. Conjunctiva/sclera: Conjunctivae normal. Pupils: Pupils are equal, round, and reactive to light. Neck: Trachea: Trachea normal. Cardiovascular: Rate and Rhythm: Normal rate and regular rhythm. Pulses: Radial pulses are 2+ on the right side and 2+ on the left side. Dorsalis pedis pulses are 2+ on the right side and 2+ on the left side. Heart sounds: S1 normal and S2 normal. No murmur heard. No friction rub. No gallop. Pulmonary: Effort: Pulmonary effort is normal. Breath sounds: Normal breath sounds. Abdominal: General: Abdomen is flat. Bowel sounds are normal. Palpations: Abdomen is soft. Tenderness: There is abdominal tenderness in the epigastric area and left upper quadrant. Musculoskeletal: Cervical back: Neck supple. Right lower leg: No edema. Left lower leg: No edema. Skin: General: Skin is warm and dry. Capillary Refill: Capillary refill takes less than 2 seconds. Neurological: General: No focal deficit present. Mental Status: She is oriented to person, place, and time and easily aroused. Cranial Nerves: Cranial nerves 2-12 are intact. Psychiatric: Attention and Perception: Attention normal. Mood and Affect: Mood normal. Behavior: Behavior is cooperative. Labs (in last 24 hours): CBC: Results from last 7 days Lab Units 09/25/22185509/19/22 0404 WBC 10*3/uL 8.86 2.82* HEMOGLOBIN g/dL 12.2 10.3* HEMATOCRIT % 37.6 32.1* PLATELETS 10*3/uL 300 150* MCV fL 81 82 MCH pg 26.1 26.3 MCHC g/dL 32.4 32.1 RDW % 15.1* 15.1* NRBC COUNT per 100 WBCs 0.0 0.0 Differential: Results from last 7 days Lab Units 09/25/22185509/19/22 040 WBC 10*3/uL 8.86 2.82* NEUTROS PCT % 61.0 -- LYMPHS PCT % 30.0 -- MONOS PCT % 5.0 -- EOS PCT % 1.0 -- Coagulation: Results from last 7 days Lab Units 09/19/22 0404 D DIMER, QUANTITATIV ug/mL FEU 1.43* Inflammatory markers/hemolysis: Lactate: Results from last 7 days Lab Units 09/25/22 185 LACTATE mmol/L 2.2 Urinalysis with microscopic: Results from last 7 days Lab Units 09/25/22 185 COLOR UA Yellow SPEC GRAV U <=1.005 PH UA 6.5 PROTEIN UR mg/dL Negative GLUCOSE UA mg/dL Negative KETONES UA mg/dL Negative LEUKOCYTES UA Negative NITRITE UA Negative Renal: Results from last 7 days Lab Units 09/25/22185509/19/22 0404 SODIUM mmol/L 138 131* SODIUM, SYRINGE mmol/L 141 -- POTASSIUM mmol/L 4.9* 3.4* CHLORIDE mmol/L 103 98 CO2 mmol/L 20* 24 BUN mg/dL 5* 7 CREATININE mg/dL 0.57* 0.81 GLUCOSE mg/dL 85 136* CALCIUM mg/dL 9.2 7.9* PHOSPHORUS mg/dL -- 4.1 Liver: Results from last 7 days Lab Units 09/25/22185509/19/22 0404 AST U/L 34* -- ALT U/L 33 -- ALKALINE PHOSPHATASE U/L 114* -- BILIRUBIN TOTAL mg/dL <0.2* -- ALBUMIN g/dL 4.1 3.5 LIPASE U/L 127* -- Endocrine: No results found for: PGLU Lab Results Component Value Date HGBA1C 5.3 10/18/2020 Lab Results Component Value Date TSH 5.21 (H) 02/05/2021 FREET4 0.9 12/20/2021 Cardiac: Arterial Blood Gas: Lab Results Component Value Date BE 1.4 09/25/2022 Venous Blood Gas: Lab Results Component Value Date HVC5TNO 25 09/25/2022 UVS8WUT 37 09/25/2022 PO2VEN 69 (H) 09/25/2022 [id number] 95.6 (H) 09/25/2022 Microbiology: Results No results found for the last 48 hours. Imaging (in last 24 hours): Encounter Date: 09/13/22 ECG Adult Result Value EKG DIAGNOSIS CLASS Abnormal Ventricular Rate 115 Atrial Rate 115 [place] Interval 126 QRSD Interval 82 QT Interval 324 QTC Interval 448 P Kennedy 20 R Kennedy 14 T Wave Kennedy 15 Diagnosis Sinus tachycardia Diagnosis Possible Diagnosis Anterolateral infarct Diagnosis , age undetermined Diagnosis Poor r-wave progression in precordial leads Diagnosis Abnormal ECG Diagnosis Confirmed by Ankur Muniz ([id number]) on 09/19/2022 9:52:59 AM *Note: Due to a large number of results and/or encounters for the requested time period, some results have not been displayed. A complete set of results can be found in Results Review. No echocardiogram results found for the past 12 months Assessment and plan: # Recurrent pancreatitis c/b non-adherence to low fat diet - Continued abdominal pain after last admission (discharged 09/14) but acutely worse 09/25 about 12hours after eating burritos from [employer] - Lipase 127 Plan: - IVF hydration - Pain control: oxycodone 5 mg PO q 4 PRN + hydromorphone 0.5 mg IVP q 4 PRN + acetaminophen 500 mgPO q 4 PRN --- Monitor for sedation and toxicity while on IV opiates - CLD - Zofran PRN q 6 PRN N/V - Continue Creon - Nutrition consult per patient request for sheet on low fat diet to promote adherence at home withher children # Diarrhea - May be s/t above pancreatitis versus C. Diff versus antibiotic associated diarrhea versus food poisoning (onset after eating 2 burritos from [employer]) --- recently completed a course of Levaquin for PNA Plan: - C. Diff, comprehensive GI panel ordered # Hypertension - No antihypertensives at baseline Plan: - Monitor and trend VS - Ensure adequate pain control - Will treat sustained SBP>180 with PRN agents as appropriate - If persistently elevated while inpatient may require initiation of PO agent # Fibromyalgia Plan: - Hold home Lyrica given sedated state # Depression and anxiety Plan: - Holding amitriptyline, lorazepam given sedated state on admission --- lorazepam filled 2 mg #7 on 09/25/2022, last fill was 1 mg #14 04/2022 - Continue Buspar # Obesity - BMI 42 Plan: - Diet and exercise education at time of discharge - Complicates all aspects of care # GERD Plan: - Continue PPI # Marijuana use Plan: - Advise cessation given risk of hyperemesis # Nicotine dependence Plan: - Tobacco cessation education - Nicotine replacement therapy provided upon request Fluids: lactated Ringer's @ 100 mL/hr, encourage PO intake Electrolytes: Monitor and replace as indicated Nutrition Adult diet Diet texture: Clear liquid DVT prophylaxis SCDs only Code status Full Code * ED Provider Notes - Eric Clarke MD - 09/25/2022 5:42 PM EDT Images from the original note were not included. - HPI Chief Complaint Patient presents with Abdominal Pain Chief Complaint: Abdominal Pain Lila Mcnally is a 36 y.o. female with pmh of anxiety, depression, pancreatitis presenting with a chief complaint of abdominal pain. Patient said that she was recently admitted to the hospital forsimilar symptoms, discharged 1 week ago. Patient said that she started having epigastric abdominal pain starting around 4:00 p.m. today, said this is similar to pain that she has had in the past. Patient is also had 3 episodes of nonbilious nonbloody vomiting and 2 episodes of nonbloody diarrhea. Otherwise patient denies fevers, chills, chest pain, shortness of breath, cough, congestion No data recorded Patient History Past Medical [...] Constitutional: Negative for fever. Respiratory: Negative for shortness of breath. Cardiovascular: Negative for chest pain. Gastrointestinal: Positive for abdominal pain, diarrhea, nausea and vomiting. Negative for abdominal distention. Genitourinary: Negative for dysuria and frequency. Neurological: Negative for dizziness, tremors, seizures, weakness, light- headedness and headaches. Physical Exam ED Triage Vitals [09/25/22 1757] Temp Heart Rate Resp BP 37.2 ??C (98.9 ??F) (!) 134 16 (!) 163/89 SpO2 Temp Source Heart Rate Source Patient Position 98 % Oral -- -- BP Location FiO2 (%) -- -- Physical Exam Constitutional: General: She is not in acute distress. Appearance: She is not ill-appearing or toxic-appearing. Cardiovascular: Rate and Rhythm: Normal rate and regular rhythm. Pulmonary: Effort: Pulmonary effort is normal. No respiratory distress. Breath sounds: Normal breath sounds. Abdominal: Palpations: Abdomen is soft. Comments: Mild epigastric tenderness, non peritonitic, no involuntary guarding Neurological: Mental Status: She is alert. ED Course & [facility] Clinical Impressions as of 09/25/222110 Acute on chronic pancreatitis (CMS/HCC) Medical Decision Making The following orders were placed this encounter: Orders Placed This Encounter Procedures CBC w/diff CMP Lipase Blood gas panel, venous hCG qualitative Urinalysis with reflex microscopic Vital signs Consult to [facility] ED to floor bed request Medications administered this encounter: Medications HYDROmorphone (Dilaudid) injection 0.5 mg (has no administration in time range) lactated Ringer's infusion 1,000 mL (1,000 mL Intravenous New Bag 09/25/221856) morphine PF 4 mg (4 mg Intravenous Given 09/25/221856) diphenhydrAMINE (Benadryl) injection 50 mg (50 mg Intravenous Given 09/25/221856) ondansetron (Zofran) injection 4 mg (4 mg Intravenous Given 09/25/221855) promethazine (Phenergan) injection 25 mg (25 mg Intravenous Given 09/25/221958) HYDROmorphone (Dilaudid) injection 0.5 mg (0.5 mg Intravenous Given 09/25/222008) I Eric Clarke saw and evaluated the patient with the medical student. I discussed the case with themedical student and agree with the findings and plan as documented. I personally performed the Examand Medical Decision Making. Patient seen and examined with my attending Lila Mcnally is a 36 y.o. female presenting for evaluation of abdominal pain. Patients current medical problem complicated by medical problems including: Anxiety, depression, pancreatitis. Differential diagnosis includes but is not limited to: Pancreatitis, gastritis, ulcer, gastroenteritis,. Ruling out the most morbid conditions drove my clinical assessment. I reviewed prior records including her most recent discharge summary which documented patient was admitted to the hospital for acute on chronic pancreatitis, upon arrival patient was tachycardic to 140 and had a fever of 102, was also found to have a pneumonia and started on Levaquin. Initial Assessment: Patient having epigastric pain similar to pain that she has had in the past forpancreatitis, she may have an episode of acute on chronic pancreatitis, will try to control pain, give fluids and reassess. I considered the utility of obtaining CT Scan, but decided to forgo this because this would not care management associate. Labs were independently interpreted by me. They are significant for elevated lipase. I discussed management with the following services regarding the patient's case and recommendationsfor disposition: IP CONSULT TO [facility] Reassessment: Patient's pain is improving, but unable to PO, and pain returns quickly after pain medication given. After discussion with patient she does not think she would be able to control her pain at home. Discussed with Hospital Medicine and patient ultimately admitted to their service. Impression: At this time based on history, physical, and diagnostics, she most likely has acute on chronic pancreatitis. Disposition: Admission Eric Clarke MD Emergency Medicine - PGY2 EMR Dragon/Tool Room Gear Machine Operator disclaimer: Much of this encounter note is an electronic burn out scarfing operator of spoken language to printed text. Electronic burn out scarfing operator of spoken language may permit erroneous, or at times, nonsensical words or phrases to be inadvertently transcribed. Although I have reviewed the note for such errors, some may still exist. Please do not hesitate to reach out to me for clarification. ED Prescriptions None Disposition Admit Requested Location: [facility] [[id number]] Sign Off Checklist Clinical Impression: Complete ED Disposition: Complete - Erci Clarke MD Resident 09/25/22 7568 Cosigned by Agnes Cooley MD at 09/29/2022 9:49 AM EDT Associated attestation - Agnes Cooley MD - 09/29/2022 9:49 AM EDT I saw and evaluated the patient with the resident/fellow. I discussed the case with the resident/fellow and agree with the findings and plan as documented. * ED Triage Notes - Andrew Gonzalez RN - 09/25/2022 5:42 PM EDT Pt with c/o abd pain that returned around 0400 this morning. Pt was just dcd on Thursday for pancreatitis and pneumonia. Also endorses vomiting. documented in this encounter Plan of Treatment Scheduled Referrals Name Type Priority Associated Diagnoses Order Schedule Discharge Ambulatory referral - High Risk Outpatient Referral Routine Other chronic pain Epigastric pain 1 Occurrences starting 09/26/2022 until 03/29/2024 documented as of this encounter Procedures Procedure Name Priority Date/Time Associated Diagnosis Comments C-REACTIVE PROTEIN, PLASMA Routine 09/26/2022 9:14 PM EDT LIPASE, PLASMA Routine 09/26/2022 9:14 PM EDT BASIC METABOLIC PANEL, PLASMA Routine 09/26/2022 9:14 PM EDT COMPREHENSIVE GI PANEL BY PCR Routine 09/26/2022 10:54 AM EDT CLOSTRIDIODES (CLOSTRIDIUM) DIFFICILE,PCR Routine 09/26/2022 10:54 AM EDT CBC W/O DIFFERENTIAL Routine 09/26/2022 3:37 AM EDT PHOSPHORUS, PLASMA Routine 09/26/2022 3: 37 AM EDT MAGNESIUM, PLASMA Routine 09/26/2022 3:3 7 AM EDT BASIC METABOLIC PANEL, PLASMA Routine 09/26/2022 3:37 AM EDT URINALYSIS WITH REFLEX MICROSCOPIC STAT 09/25/2022 6:56 PM EDT CBC WITH AUTO DIFFERENTIAL STAT 09/25/2022 6:56 PM EDT TEST QUALITATIVE PLASMA STAT 09/25/2022 6:56 PM EDT LIPASE, PLASMA STAT 09/25/2022 6:56 PM EDT BLOOD GAS PANEL, VENOUS STAT 09/25/2022 6:56 PM EDT COMPREHENSIVE METABOLIC PANEL, PLASMA STAT 09/25/2022 6:56 PM EDT documented in this encounter Results * C-Reactive Protein, Plasma (09/26/2022 9:14 PM EDT) CRP, Plasma 5.7 <=8.0 mg/L 09/26/2022 9:45 PM EDT [facility] Blood Venous blood specimen / Unknown Venipuncture / Unknown 09/26/2022 9:14 PM EDT 09/26/2022 9:19 PM EDT Narrative [facility] - 09/26/2022 9:45 PM EDT This CRP test is appropriate for assessment of infection, systemic inflammation and/or tissue injury. To assess cardiovascular disease risk order high sensitivity CRP (CRPH). us Sandhya Rae MD LAB BLOOD ORDERABLES Carolina l Result [facility] [address] [place] [address] * (ABNORMAL) Basic Metabolic Panel, Plasma (09/26/2022 9:14 PM EDT) Glucose, Plasma 117(H) 74 - 99 mg/dL 09/26/2022 9:45 PM EDT [facility] BUN, Plasma 5(L) 7 - 21 mg/dL 09/26/2022 9:45 PM EDT [facility] Creatinine, Plasma 0.61 0.60 - 1.10 mg/dL 09/26/2022 9:45 PM EDT [facility] BUN/Creatinine Ratio 8 09/26/2022 9:45 PM EDT [facility] Sodium, Plasma 135(L) 136 - 145 mmol/L 09/26/2022 9:45 PM EDT [facility] Potassium, Plasma 4.1 3.7 - 4.8 mmol/L 09/26/2022 9:45 PM EDT [facility] Comment:Hemolyzed, result ma y be falsely increased. Chloride, Plasma 100 97 - 107 mmol/L 09/26/2022 9:45 PM EDT [facility] CO2, Plasma 22 22 - 29 mmol/L 09/26/2022 9:45 PM EDT [facility] Anion Gap 13 6 - 16 mmol/L 09/26/2022 9:45 PM EDT [facility] Total Calcium, Plasma 9.0 8.9 - 10.2 mg/dL 09/26/2022 9:45 PM EDT [facility] eGFRcr 119.7 mL/min/1.7 3m*2 09/26/2022 9:45 PM EDT [facility] Comment:Reported eGFRcr in m L/min/1.73m2 is based the CKD-EPI 2020 equation that does not use a race coefficient. Blood Venous blood specimen / Unknown Venipuncture / Unknown 09/26/2022 9:14 PM EDT 09/26/2022 9:19 PM EDT Sandhya Rae MD LAB BLOOD ORDERABLES Carolina l Result Performing Organization Address City/[facility]/ZIP Co de Phone Number [facility] [address] [place] [address] * Lipase (09/26/2022 9:14 PM EDT) Pathologist [facility] Lipase, Plasma 29 19 - 63 U/L 09/26/2022 9:45 PM EDT [facility] Blood Venous blood specimen / Unknown Venipuncture / Unknown 09/26/2022 9:14 PM EDT 09/26/2022 9:19 PM EDT Leny Tee APRN LAB BLOOD ORDERABLES Final R esult Performing Organization Address City/[facility] Co de Phone Number [facility] [address] [place] [address] * Clostridiodes (Clostridium) difficile PCR (09/26/2022 10:54 AM EDT) [facility] C difficile PCR toxin B gene DNA Result Test not indicated due to the receipt of formed or semi-formed stool specimen. Not Detected 09/27/2022 11:00 AM EDT [facility] Stool Rectum structure / Unknown Non-blood Collection / Unknown 09/26/2022 10:54 AM EDT 09/26/2022 10:58 AM EDT Narrative [facility] - 09/27/2022 11:00 AM EDT This test is FDA approved for use with liquid stool specimens. This test is used for ??clinical purposes. It should not be regarded as investigational or for research. This laboratory is certified under the Clinical Laboratory Improvement Amendments of 1988 (CLIA-88) as qualified to perform high complexity clinical laboratory testing. Lisa Helton APRN LAB MICROBIOLOGY - GENER AL ORDERABLES Final Result Performing Organization Address [facility] Co de Phone Number [facility] [address] [place] [address] * Comprehensive GI Panel by PCR (09/26/2022 10:54 AM EDT) [facility] Gastrointestinal PCR Panel Result Not Detected for all analytes Not Detected for all analytes. 09/26/2022 1:35 PM EDT [facility] Stool Rectum structure / Unknown Non-blood Collection / Unknown 09/26/2022 10:54 AM EDT 09/26/2022 10:58 AM EDT Narrative [facility] - 09/26/2022 1:35 PM EDT Analytes include: Campylobacter species, Plesiomonas shigelloides, Salmonella [...] difficile by PCR assay if clinically indicated. [facility] LAB MICROBIOLOGY - GENER AL ORDERABLES Final Result Performing Organization Address [facility] Co de Phone Number [facility] [address] [place] [address] * Phosphorus (09/26/2022 3:37 AM EDT) [facility] Phosphorus, Plasma 3.8 2.5 - 4.5 mg/dL 09/26/2022 4:09 AM EDT [facility] Blood Venous blood specimen / Unknown Venipuncture / Unknown 09/26/2022 3:37 AM EDT 09/26/2022 3:42 AM EDT Lisa W Danie [employer] LAB BLOOD ORDERABLES Fin al Result Performing Organization Address City/[facility]/ZIP Co de Phone Number [facility] [address] [place] [address] * Magnesium (09/26/2022 3:37 AM EDT) Magnesium, Plasma 2.2 1.9 - 2.4 mg/dL 09/26/2022 4:09 AM EDT [facility] Blood Venous blood specimen / Unknown Venipuncture / Unknown 09/26/2022 3:37 AM EDT 09/26/2022 3:42 AM EDT Lisa Olivas Danie [employer] LAB BLOOD ORDERABLES Fin al Result Performing Organization Address [facility] Co de Phone Number [facility] [address] [place] [address] * (ABNORMAL) Basic metabolic panel (09/26/2022 3:37 AM EDT) Glucose, Plasma 98 74 - 99 mg/dL 09/26/2022 4:09 AM EDT [facility] BUN, Plasma 5(L) 7 - 21 mg/dL 09/26/2022 4:09 AM EDT [facility] Creatinine, Plasma 0.62 0.60 - 1.10 mg/dL 09/26/2022 4:09 AM EDT [facility] BUN/Creatinine Ratio 8 09/26/2022 4:09 AM EDT [facility] Sodium, Plasma 134(L) 136 - 145 mmol/L 09/26/2022 4:09 AM EDT [facility] Potassium, Plasma 4.1 3.7 - 4.8 mmol/L 09/26/2022 4:09 AM EDT [facility] Chloride, Plasma 100 97 - 107 mmol/L 09/26/2022 4:09 AM EDT [facility] CO2, Plasma 24 22 - 29 mmol/L 09/26/2022 4:09 AM EDT [facility] Anion Gap 10 6 - 16 mmol/L 09/26/2022 4:09 AM EDT [facility] Total Calcium, Plasma 9.0 8.9 - 10.2 mg/dL 09/26/2022 4:09 AM EDT [facility] eGFRcr 119.3 mL/min/1.7 3m*2 09/26/2022 4:09 AM EDT [facility] Comment:Reported eGFRcr in m L/min/1.73m2 is based the CKD-EPI 2020 equation that does not use a race coefficient. Blood Venous blood specimen / Unknown Venipuncture / Unknown 09/26/2022 3:37 AM EDT 09/26/2022 3:42 AM EDT Lisa Helton RA[employer] LAB BLOOD ORDERABLES Fin al Result [facility] [address] [place] [address] * (ABNORMAL) CBC (09/26/2022 3:37 AM EDT) WBC Count 7.33 3.70 - 10.30 10*3/uL LAB HEMATOLOGY METHOD 09/26/2022 3:47 AM EDT [facility] RBC Count 4.64 3.90 - 5.20 10*6/uL LAB HEMATOLOGY METHOD 09/26/2022 3:47 AM EDT [facility] HGB 12.0 11.2 - 15.7 g/dL LAB HEMATOLOGY METHOD 09/26/2022 3:47 AM EDT [facility] HCT 37.5 34.0 - 45.0 % LAB HEMATOLOGY METHOD 09/26/2022 3:47 AM EDT [facility] Platelet Count 270 155 - 369 10*3/uL LAB HEMATOLOGY METHOD 09/26/2022 3:47 AM EDT [facility] MCV 81 79 - 98 fL LAB HEMATOLOGY METHOD 09/26/2022 3:47 AM EDT [facility] MCH 25.9(L) 26.0 - 32.0 pg LAB HEMATOLOGY METHOD 09/26/2022 3:47 AM EDT [facility] MCHC 32.0 30.7 - 35.5 g/dL LAB HEMATOLOGY METHOD 09/26/2022 3:47 AM EDT [facility] RDW 15.4(H) 11.5 - 14.5 % LAB HEMATOLOGY METHOD 09/26/2022 3:47 AM EDT [facility] MPV 9.6 8.8 - 12.5 fL LAB HEMATOLOGY METHOD 09/26/2022 3:47 AM EDT [facility] nRBC 0.0 <=0.0 per 100 WBCs LAB HEMATOLOGY METHOD 09/26/2022 3:47 AM EDT [facility] Blood Venous blood specimen / Unknown Venipuncture / Unknown 09/26/2022 3:37 AM EDT 09/26/2022 3:42 AM EDT us Lisa Helton RAIL [employer] LAB BLOOD ORDERABLES Fin al Result [facility] [address] [place] [address] * Urinalysis with reflex microscopic (09/25/2022 6:56 PM EDT) Color, Urine Yellow LAB URINALYSIS - AUTOMATED METHOD 09/25/2022 7:07 PM EDT [facility] Clarity, Urine Clear LAB URINALYSIS - AUTOMATED METHOD 09/25/2022 7:07 PM EDT [facility] Spec [place], Urine <=1.005 <=1.005 to >=1.030 LAB URINALYSIS - AUTOMATED METHOD 09/25/2022 7:07 PM EDT [facility] pH, Urine 6.5 4.5 to 8 LAB URINALYSIS - AUTOMATED METHOD 09/25/2022 7:07 PM EDT [facility] Protein, Urine Negative Negative mg/dL LAB URINALYSIS - AUTOMATED METHOD 09/25/2022 7:07 PM EDT [facility] Glucose, Urine Negative Negative mg/dL LAB URINALYSIS - AUTOMATED METHOD 09/25/2022 7:07 PM EDT [facility] Ketones, Urine Negative Negative mg/dL LAB URINALYSIS - AUTOMATED METHOD 09/25/2022 7:07 PM EDT [facility] Blood, Urine Negative Negative LAB URINALYSIS - AUTOMATED METHOD 09/25/2022 7:07 PM EDT [facility] Bilirubin, Urine Negative Negative LAB URINALYSIS - AUTOMATED METHOD 09/25/2022 7:07 PM EDT [facility] Urobilinogen, Urine 0.2 0.2 to 1.0 mg/dL LAB URINALYSIS - AUTOMATED METHOD 09/25/2022 7:07 PM EDT [facility] Leukocytes, Urine Negative Negative LAB URINALYSIS - AUTOMATED METHOD 09/25/2022 7:07 PM EDT [facility] Nitrite, Urine Negative Negative LAB URINALYSIS - AUTOMATED METHOD 09/25/2022 7:07 PM EDT [facility] Urine Urine specimen obtained by clean catch procedure / Unknown Non-blood Collection / Unknown 09/25/2022 6:56 PM EDT 09/25/2022 7:02 PM EDT Agnes Coloey MD LAB URINE ORDERABLES Final R esult Performing Organization Address City/[facility] Co de Phone Number [facility] [address] [place] [address] * hCG qualitative (09/25/2022 6:56 PM EDT) Pathologist [facility] Test Negative Negative 09/25/2022 7:29 PM EDT [facility] Blood Venous blood specimen / Unknown Venipuncture / Unknown 09/25/2022 6:56 PM EDT 09/25/2022 7:02 PM EDT Narrative [facility] - 09/25/2022 7:29 PM EDT Reference Range: Males and non- females: Negative. Agnes Cooley MD LAB BLOOD ORDERABLES Final R esult Performing Organization Address [facility] de Phone Number [facility] [address] [place] [address] * (ABNORMAL) Blood gas panel, venous (09/25/2022 6:56 PM EDT) pH, Venous 7.45(H) 7.32 - 7.43 LAB HEMATOLOGY METHOD 09/25/2022 7:05 PM EDT [facility] pCO2, Venous 37 37 - 52 mmHg LAB HEMATOLOGY METHOD 09/25/2022 7:05 PM EDT [facility] pO2, Venous 69(H) 25 - 40 mmHg LAB HEMATOLOGY METHOD 09/25/2022 7:05 PM EDT [facility] SO2, Measured, Venous 95.6(H) 65 - 80 % LAB HEMATOLOGY METHOD 09/25/2022 7:05 PM EDT [facility] Base Excess, Venous 1.4 -2.0 - 3.0 mmol/L LAB HEMATOLOGY METHOD 09/25/2022 7:05 PM EDT [facility] Bicarbonate, Calculated, Venous 25 22 - 26 mmol/L LAB HEMATOLOGY METHOD 09/25/2022 7:05 PM EDT [facility] Hematocrit, Whole Blood 37.8 34.0 - 45.0 % LAB HEMATOLOGY METHOD 09/25/2022 7:05 PM EDT [facility] Sodium, Whole Blood 141 136 - 145 mmol/L LAB HEMATOLOGY METHOD 09/25/2022 7:05 PM EDT [facility] Potassium, Whole Blood 4.1 3.6 - 4.9 mmol/L LAB HEMATOLOGY METHOD 09/25/2022 7:05 PM EDT [facility] Chloride, Whole Blood 103 97 - 107 mmol/L LAB HEMATOLOGY METHOD 09/25/2022 7:05 PM EDT [facility] Glucose, Whole Blood 85 74 - 99 mg/dL LAB HEMATOLOGY METHOD 09/25/2022 7:05 PM EDT [facility] Lactate, Venous, Whole Blood 2.2 0.5 - 2.2 mmol/L LAB HEMATOLOGY METHOD 09/25/2022 7:05 PM EDT [facility] Ionized Calcium, Whole Blood 4.7 4.6 - 5.1 mg/dL LAB HEMATOLOGY METHOD 09/25/2022 7:05 PM EDT [facility] Blood Venous blood specimen / Unknown Venipuncture / Unknown 09/25/2022 6:56 PM EDT 09/25/2022 7:02 PM EDT us Agnes Cooley MD LAB BLOOD ORDERABLES Final R esult [facility] [address] [place] [id number] * (ABNORMAL) Lipase (09/25/2022 6:56 PM EDT) Lipase, Plasma 127(H) 19 - 63 U/L 09/25/2022 7:29 PM EDT [facility] Blood Venous blood specimen / Unknown Venipuncture / Unknown 09/25/2022 6:56 PM EDT 09/25/2022 7:02 PM EDT us Agnes Cooley MD LAB BLOOD ORDERABLES Final R esult [facility] [address] [place] [address] * (ABNORMAL) CMP (09/25/2022 6:56 PM EDT) Glucose, Plasma 85 74 - 99 mg/dL 09/25/2022 7:29 PM EDT [facility] BUN, Plasma 5(L) 7 - 21 mg/dL 09/25/2022 7:29 PM EDT [facility] Creatinine, Plasma 0.57(L) 0.60 - 1.10 mg/dL 09/25/2022 7:29 PM EDT [facility] BUN/Creatinine Ratio 9 09/25/2022 7:29 PM EDT [facility] Sodium, Plasma 138 136 - 145 mmol/L 09/25/2022 7:29 PM EDT [facility] Potassium, Plasma 4.9(H) 3.7 - 4.8 mmol/L 09/25/2022 7:29 PM EDT [facility] Comment:Hemolyzed, result ma y be falsely increased. Chloride, Plasma 103 97 - 107 mmol/L 09/25/2022 7:29 PM EDT [facility] CO2, Plasma 20(L) 22 - 29 mmol/L 09/25/2022 7:29 PM EDT [facility] Anion Gap 15 6 - 16 mmol/L 09/25/2022 7:29 PM EDT [facility] Total Calcium, Plasma 9.2 8.9 - 10.2 mg/dL 09/25/2022 7:29 PM EDT [facility] Total Protein 7.4 6.3 - 7.9 g/dL 09/25/2022 7:29 PM EDT [facility] Albumin, Plasma 4.1 3.5 - 5.2 g/dL 09/25/2022 7:29 PM EDT [facility] AST, Plasma 34(H) 11 - 32 U/L 09/25/2022 7:29 PM EDT [facility] Comment:Hemolyzed, result ma y be falsely increased. ALT, Plasma 33 8 - 33 U/L 09/25/2022 7:29 PM EDT [facility] Alkaline Phosphatase, Plasma 114(H) 35 - 104 U/L 09/25/2022 7:29 PM EDT [facility] Total Bilirubin, Plasma <0.2(L) 0.2 - 1.1 mg/dL 09/25/2022 7:29 PM EDT [facility] eGFRcr 121.7 mL/min/1.7 3m*2 09/25/2022 7:29 PM EDT [facility] Comment:Reported eGFRcr in m L/min/1.73m2 is based the CKD-EPI 2020 equation that does not use a race coefficient. Blood Venous blood specimen / Unknown Venipuncture / Unknown 09/25/2022 6:56 PM EDT 09/25/2022 7:02 PM EDT us Agnes Cooley MD LAB BLOOD ORDERABLES Final R esult [facility] [address] [place] [address] * (ABNORMAL) CBC w/diff (09/25/2022 6:56 PM EDT) WBC Count 8.86 3.70 - 10.30 10*3/uL LAB HEMATOLOGY METHOD 09/25/2022 7:07 PM EDT [facility] RBC Count 4.67 3.90 - 5.20 10*6/uL LAB HEMATOLOGY METHOD 09/25/2022 7:07 PM EDT [facility] HGB 12.2 11.2 - 15.7 g/dL LAB HEMATOLOGY METHOD 09/25/2022 7:07 PM EDT [facility] HCT 37.6 34.0 - 45.0 % LAB HEMATOLOGY METHOD 09/25/2022 7:07 PM EDT [facility] Platelet Count 300 155 - 369 10*3/uL LAB HEMATOLOGY METHOD 09/25/2022 7:07 PM EDT [facility] MCV 81 79 - 98 fL LAB HEMATOLOGY METHOD 09/25/2022 7:07 PM EDT [facility] MCH 26.1 26.0 - 32.0 pg LAB HEMATOLOGY METHOD 09/25/2022 7:07 PM EDT [facility] MCHC 32.4 30.7 - 35.5 g/dL LAB HEMATOLOGY METHOD 09/25/2022 7:07 PM EDT [facility] RDW 15.1(H) 11.5 - 14.5 % LAB HEMATOLOGY METHOD 09/25/2022 7:07 PM EDT [facility] MPV 9.6 8.8 - 12.5 fL LAB HEMATOLOGY METHOD 09/25/2022 7:07 PM EDT [facility] nRBC 0.0 <=0.0 per 100 WBCs LAB HEMATOLOGY METHOD 09/25/2022 7:07 PM EDT [facility] Differential Type Automated LAB HEMATOLOGY METHOD 09/25/2022 7:07 PM EDT [facility] Neutrophils % 61.0 % LAB HEMATOLOGY METHOD 09/25/2022 7:07 PM EDT [facility] Lymphocytes % 30.0 % LAB HEMATOLOGY METHOD 09/25/2022 7:07 PM EDT [facility] Monocytes % 5.0 % LAB HEMATOLOGY METHOD 09/25/2022 7:07 PM EDT [facility] Eosinophils % 1.0 % LAB HEMATOLOGY METHOD 09/25/2022 7:07 PM EDT [facility] Basophils % 1.0 % LAB HEMATOLOGY METHOD 09/25/2022 7:07 PM EDT [facility] Immature Granulocytes % 2.0 % LAB HEMATOLOGY METHOD 09/25/2022 7:07 PM EDT [facility] Neutrophils Absolute 5.47 1.60 - 6.10 10*3/uL LAB HEMATOLOGY METHOD 09/25/2022 7:07 PM EDT [facility] Lymphocytes Absolute 2.66 1.20 - 3.90 10*3/uL LAB HEMATOLOGY METHOD 09/25/2022 7:07 PM EDT [facility] Monocytes Absolute 0.42 0.30 - 0.90 10*3/uL LAB HEMATOLOGY METHOD 09/25/2022 7:07 PM EDT [facility] Eosinophils Absolute 0.07 0.00 - 0.50 10*3/uL LAB HEMATOLOGY METHOD 09/25/2022 7:07 PM EDT [facility] Basophils Absolute 0.07 0.00 - 0.10 10*3/uL LAB HEMATOLOGY METHOD 09/25/2022 7:07 PM EDT [facility] Immature Granulocytes Absolute 0.17(H) 0.00 - 0.06 10*3/uL LAB HEMATOLOGY METHOD 09/25/2022 7:07 PM EDT [facility] Blood Venous blood specimen / Unknown Venipuncture / Unknown 09/25/2022 6:56 PM EDT 09/25/2022 7:02 PM EDT [facility] - 09/25/2022 7:07 PM EDT Therapeutic decision making should be based on absolute values, rather than percentages. us Agnes Cooley MD LAB BLOOD ORDERABLES Final R esult [facility] [address] [place] [address] documented in this encounter Visit Diagnoses Diagnosis Acute on chronic pancreatitis (CMS/HCC)- Primary Acute on chronic pancreatitis (CMS/HCC) Other chronic pain Epigastric pain Abdominal pain, epigastric Fibromyalgia Unspecified myalgia and myositis GERD (gastroesophageal reflux disease) Esophageal reflux Hypertension Unspecified essential hypertension Nicotine dependence Tobacco use disorder Depression Depressive disorder, not elsewhere classified Diarrhea of presumed infectious origin Anxiety Anxiety state, unspecified Marijuana use documented in this encounter Admitting Diagnoses Diagnosis Acute on chronic pancreatitis (CMS/HCC) documented in this encounter Administered Medications Inactive Administered Medications - up to 3 most recent administrations Medication Order MAR Action Action Date Dose Rate Site acetaminophen (Tylenol) tablet 500 mg 500 mg, Oral, Every 4 hours PRN, Starting on Thu09/25/22 at 2343, Until 09/27/22 at 0313, Routine, mild pain, moderate pain Given 09/26/2022 4:20 PM EDT 500 mg Given 09/26/2022 6:03 AM EDT 500 mg Given 09/26/2022 12:59 AM EDT 500 mg ascorbic acid (Vitamin C) tablet 250 mg 250 mg, Oral, Daily, First dose on Thu09/26/22 at 0900, Until Discontinued Given 09/26/2022 11:02 AM EDT 250 mg busPIRone (Buspar) tablet 10 mg 10 mg, Oral, 2 times daily, First dose on Thu09/25/22 at 2355, Until Discontinued, Routine Given 09/26/2022 8:58 PM EDT 10 mg Given 09/26/2022 8:41 AM EDT 10 mg Given 09/26/2022 12:59 AM EDT 10 mg cholecalciferol (Vitamin D-3) tablet 2,000 Units 2,000 Units, Oral, Daily, First dose on Thu09/26/22 at 0900, Until Discontinued, Routine Given 09/26/2022 11:01 AM EDT 2,000 Units cyanocobalamin (Vitamin B-12) tablet 1,000 mcg 1,000 mcg, Oral, Daily, First dose on Thu09/26/22 at 0900, Until Discontinued, Routine Given 09/26/2022 11:01 AM EDT 1,000 mcg dextrose 5 % and lactated Ringer's infusion 75 mL/hr, Intravenous, Continuous, Starting on Thu09/26/22 at 1800, Until 09/27/22 at 0313, Routine New Bag 09/26/2022 6:45 PM EDT 75 mL/hr 75 mL/h r diphenhydrAMINE (Benadryl) injection 50 mg 50 mg, Intravenous, Once, 1 dose, On Annabel 09/25/22 at 1835, STAT Given 09/25/2022 6:57 PM EDT 50 mg gi cocktail oral solution 30 mL 30 mL, Oral, 4 times daily PRN, Starting on Thu09/26/22 at 1230, Until 09/27/22 at 0313, Routine, heartburn, indigestion Given 09/26/2022 12:46 PM EDT 30 mL HYDROmorphone (Dilaudid) injection 0.25 mg 0.25 mg, Intravenous, Every 4 hours PRN, Starting on Thu09/26/22 at 0751, Until 09/27/22 at 0313, Routine, severe pain Given 09/27/2022 1:03 AM EDT 0.25 mg Given 09/26/2022 8:59 PM EDT 0.25 mg Given 09/26/2022 4:59 PM EDT 0.25 mg HYDROmorphone (Dilaudid) injection 0.5 mg 0.5 mg, Intravenous, Once, 1 dose, On Thu09/25/22 at 2000, STAT Given 09/25/2022 8:09 PM EDT 0.5 mg HYDROmorphone (Dilaudid) injection 0.5 mg 0.5 mg, Intravenous, Once, 1 dose, On Thu09/25/22 at 2055, STAT Given 09/25/2022 9:16 PM EDT 0.5 mg HYDROmorphone (Dilaudid) injection 0.5 mg 0.5 mg, Intravenous, Every 4 hours PRN, Starting on Thu09/26/22 at 0300, Until Thu09/26/22 at 0751, Routine, severe pain Given 09/26/2022 3:36 AM EDT 0.5 mg hydrOXYzine pamoate (Vistaril) capsule 25 mg 25 mg, Oral, Every 6 hours PRN, Starting on Thu09/26/22 at 0551, Until Thu09/26/22 at 1234, Routine, anxiety Given 09/26/2022 6:03 AM EDT 25 mg hydrOXYzine pamoate (Vistaril) capsule 50 mg 50 mg, Oral, Every 6 hours PRN, Starting on Thu09/26/22 at 1234, Until 09/27/22 at 0313, Routine, anxiety Given 09/26/2022 12:46 PM EDT 50 mg ketorolac (Toradol) injection 15 mg 15 mg, Intravenous, Once, 1 dose, On Thu09/26/22 at 0945, Routine Given 09/26/2022 9:56 AM EDT 15 mg ketorolac (Toradol) injection 15 mg 15 mg, Intravenous, Every 6 hours PRN, Starting on Thu09/26/22 at 1231, Until 09/27/22 at 0313, Routine, severe pain Given 09/26/2022 4:21 PM EDT 15 mg lactated Ringer's infusion 1,000 mL 1,000 mL, Intravenous, Once, 1 dose, On Thu09/25/22 at 1835, STAT New Bag 09/25/2022 6:57 PM EDT 1,000 mL lactated Ringer's infusion 100 mL/hr, Intravenous, Continuous, Starting on Thu09/25/22 at 2345, Until Thu09/26/22 at 1201, Routine New Bag 09/26/2022 12:02 AM EDT 100 mL/hr 100 mL/hr LORazepam (Ativan) tablet 2 mg 2 mg, Oral, Once, 1 dose, On Thu09/26/22 at 1235, Routine Given 09/26/2022 12:45 PM EDT 2 mg morphine PF 4 mg 4 mg, Intravenous, Once, 1 dose, On Thu09/25/22 at 1835, STAT Given 09/25/2022 6:57 PM EDT 4 mg morphine PF 4 mg 4 mg, Intravenous, Every 6 hours PRN, Starting on Thu09/25/22 at 2343, Until Thu09/26/22 at 0111, Routine, severe pain Given 09/26/2022 12:59 AM EDT 4 mg ondansetron (Zofran) injection 4 mg 4 mg, Intravenous, Once, 1 dose, On Thu09/25/22 at 1835, STAT Given 09/25/2022 6:56 PM EDT 4 mg ondansetron ODT (Zofran-ODT) disintegrating tablet 4 mg 4 mg, Oral, Every 6 hours PRN, Starting on Thu09/25/22 at 2352, Until 09/27/22 at 0313, Routine, nausea, vomiting Given 09/26/2022 8:41 AM EDT 4 mg Given 09/26/2022 1:46 AM EDT 4 mg oxyCODONE (Roxicodone) immediate release tablet 10 mg 10 mg, Oral, Every 4 hours PRN, Starting on Thu09/26/22 at 0400, Until 09/27/22 at 0313, Routine, severe pain Given 09/26/2022 10:13 PM EDT 10 mg Given 09/26/2022 4:59 PM EDT 10 mg Given 09/26/2022 12:45 PM EDT 10 mg oxyCODONE (Roxicodone) immediate release tablet 5 mg 5 mg, Oral, Every 4 hours PRN, Starting on Thu09/25/22 at 2343, Until Thu09/26/22 at 0259, Routine, severe pain Given 09/26/2022 12:02 AM EDT 5 mg oxyCODONE (Roxicodone) immediate release tablet 5 mg 5 mg, Oral, Every 4 hours PRN, Starting on Thu09/26/22 at 0400, Until 09/27/22 at 0313, Routine, severe pain oxyCODONE (Roxicodone) immediate release tablet 5 mg 5 mg, Oral, Once, 1 dose, On Thu09/27/22 at 0030, Routine Given 09/27/2022 12:20 AM EDT 5 mg pancrelipase (Creon) 6000 unit capsule 1 capsule, Oral, 3 times daily with meals, First dose on Thu09/26/22 at 0830, Until Discontinued Given 09/26/2022 8:42 AM EDT 1 capsule pantoprazole (Protonix) EC tablet 40 mg 40 mg, Oral, Daily, First dose on Thu09/26/22 at 0900, Until Discontinued, Routine Given 09/26/2022 8:41 AM EDT 40 mg pregabalin (Lyrica) capsule 300 mg 300 mg, Oral, 2 times daily, First dose on Thu09/26/22 at 1315, Until Discontinued, Routine Given 09/26/2022 8:58 PM EDT 300 mg Given 09/26/2022 2:44 PM EDT 300 mg prochlorperazine (Compazine) tablet 5 mg 5 mg, Oral, Every 6 hours PRN, Starting on Thu09/26/22 at 0255, Until 09/27/22 at 0313, Routine, nausea, vomiting Given 09/26/2022 10:13 PM EDT 5 mg Given 09/26/2022 3:36 AM EDT 5 mg promethazine (Phenergan) injection 25 mg 25 mg, Intravenous, Once, 1 dose, On Annabel 09/25/22 at 1935, STAT Given 09/25/2022 7:59 PM EDT 25 mg sodium chloride 0.9 % flush 10 mL 10 mL, Intravenous, Every 8 hours PRN, Starting on Annabel 09/25/22 at 2341, Until 09/27/22 at 0313, Routine, line care sodium chloride 0.9 % flush 10 mL 10 mL, Intravenous, As needed, Starting on Annabel 09/25/22 at 2341, Until 09/27/22 at 0313, Routine, line care documented in this encounter Active and Recently Administered Medications Times are shown in EDT. Scheduled Medication Order 09/25/2022 09/26/2022 09/27/2022 ascorbic acid (Vitamin C) tablet 250 mg 250 mg, Oral, Daily, First dose on Thu09/26/22 at 0900, Until Discontinued 1102 (Given - Provider: Neli Gonzalez RN) 0244 (APR Hold - Provider: Physician Shakir Lopez MD - Reason: Patient on Leave of Absence)031 (APR Unhold - Provider: Automatic Discharge Provider) busPIRone (Buspar) tablet 10 mg 10 mg, Oral, 2 times daily, First dose on Annabel 09/25/22 at 2355, Until Discontinued, Routine 005 (Given - Provider: Hunter Good RN)0841 (Given - Provider: Neli Gonzalez RN)2057 (Given - Provider: Tommie Doty) 0244 (APR Hold - Provider: Physician Shakir Lopez MD - Reason: Patient on Leave of Absence)0313 ([facility] Unhold - Provider: Automatic Discharge Provider) cholecalciferol (Vitamin D-3) tablet 2,000 Units 2,000 Units, Oral, Daily, First dose on Thu09/26/22 at 0900, Until Discontinued, Routine 1101 (Given - Provider: Neli Gonzalez RN) 0244 (APR Hold - Provider: Physician Shakir Lopez MD - Reason: Patient on Leave of Absence)0313 ([facility] Unhold - Provider: Automatic Discharge Provider) cyanocobalamin (Vitamin B-12) tablet 1,000 mcg 1,000 mcg, Oral, Daily, First dose on Thu09/26/22 at 0900, Until Discontinued, Routine 1101 (Given - Provider: Neli Gonzalez RN) 0244 (APR Hold - Provider: Physician Shakir Lopez MD - Reason: Patient on Leave of Absence)0313 ([facility] Unhold - Provider: Automatic Discharge Provider) diphenhydrAMINE (Benadryl) injection 50 mg (COMPLETED) 50 mg, Intravenous, Once, 1 dose, On Thu09/25/22 at 1835, STAT 1857 (Given - Provider: Hunter Good, CHANDNI) HYDROmorphone (Dilaudid) injection 0.5 mg (COMPLETED) 0.5 mg, Intravenous, Once, 1 dose, On Thu09/25/22 at 2000, STAT 2008 (Given - Provider: Hunter Good, CHANDNI) HYDROmorphone (Dilaudid) injection 0.5 mg (COMPLETED) 0.5 mg, Intravenous, Once, 1 dose, On Thu09/25/22 at 2055, STAT 211 (Given - Provider: Hunter Good, CHANDNI) ketorolac (Toradol) injection 15 mg (COMPLETED) 15 mg, Intravenous, Once, 1 dose, On Thu09/26/22 at 0945, Routine 0956 (Given - Provider: Neli Gonzalez RN) lactated Ringer's infusion 1,000 mL (COMPLETED) 1,000 mL, Intravenous, Once, 1 dose, On Annabel 09/25/22 at 1835, STAT 1857 (New Bag - Provider: Hunter Good RN) 0002 (Stopped - Provider: Hunter Good RN) LORazepam (Ativan) tablet 2 mg (COMPLETED) 2 mg, Oral, Once, 1 dose, On Thu09/26/22 at 1235, Routine 1245 (Given - Provider: Neli Gonzalez RN) morphine PF 4 mg (COMPLETED) 4 mg, Intravenous, Once, 1 dose, On Annabel 09/25/22 at 1835, STAT 1857 (Given - Provider: Hunter Good, CHANDNI) ondansetron (Zofran) injection 4 mg (COMPLETED) 4 mg, Intravenous, Once, 1 dose, On Annabel 09/25/22 at 1835, STAT 1856 (Given - Provider: Hunter Good RN) oxyCODONE (Roxicodone) immediate release tablet 5 mg (COMPLETED) 5 mg, Oral, Once, 1 dose, On Thu09/27/22 at 0030, Routine 0020 (Given - Provider: Tommie Doty) pancrelipase (Creon) 6000 unit capsule 1 capsule, Oral, 3 times daily with meals, First dose on Thu09/26/22 at 0830, Until Discontinued 0842 (Given - Provider: Neli Gonzalez RN)1606 (Not Given - Provider: Neli Gonzalez RN - Reason: NPO)1930 (Not Given - Provider: Agnes Prescott LPN - Reason: Patient/family refused) 0244 (APR Hold - Provider: Physician Shakir Lopez MD - Reason: Patient on Leave of Absence)0313 ([facility] Unhold - Provider: Automatic Discharge Provider) pantoprazole (Protonix) EC tablet 40 mg 40 mg, Oral, Daily, First dose on Thu09/26/22 at 0900, Until Discontinued, Routine 0841 (Given - Provider: Neli Gonzalez RN) 0244 (APR Hold - Provider: Physician Shakir Lopez MD - Reason: Patient on Leave of Absence)0313 ([facility] Unhold - Provider: Automatic Discharge Provider) pregabalin (Lyrica) capsule 300 mg 300 mg, Oral, 2 times daily, First dose on Thu09/26/22 at 1315, Until Discontinued, Routine 1444 (Given - Provider: Neli Gonzalez, CHANDNI - Comment: Rn prioritization)2057 (Given - Provider: Tommie Doty) 024 (MAR Hold - Provider: Physician Shakir Lopez MD - Reason: Patient on Leave of Absence)031 (MAR Unhold - Provider: Automatic Discharge Provider) promethazine (Phenergan) injection 25 mg (COMPLETED) 25 mg, Intravenous, Once, 1 dose, On Annabel 09/25/22 at 1935, STAT 1959 (Given - Provider: Hunter Good RN) Continuous Medication Order 09/25/2022 09/26/2022 09/27/2022 dextrose 5 % and lactated Ringer's infusion 75 mL/hr, Intravenous, Continuous, Starting on Thu09/26/22 at 1800, Until 09/27/22 at 0313, Routine 1845 (New Bag - Provider: Trevon Rodriguez RN) 024 (MAR Hold - Provider: Physician Shakir Lopez MD - Reason: Patient on Leave of Absence)031 (MAR Unhold - Provider: Automatic Discharge Provider) lactated Ringer's infusion () 100 mL/hr, Intravenous, Continuous, Starting on Annabel 09/25/22 at 2345, Until Thu09/26/22 at 1201, Routine 0002 (New Bag - Provider: Hunter Good RN)1235 (Stopped - Provider: Neli Gonzalez, CHANDNI) PRN Medication Order 09/25/2022 09/26/2022 09/27/2022 acetaminophen (Tylenol) tablet 500 mg 500 mg, Oral, Every 4 hours PRN, Starting on Annabel 09/25/22 at 2343, Until 09/27/22 at 0313, Routine, mild pain, moderate pain 0059 (Given - Provider: Hunter Good RN)0603 (Given - Provider: Angela Almanzar RN)1620 (Given - Provider: Neli Gonzalez, CHANDNI) 0244 (MAR Hold - Provider: Physician Shakir Lopez MD - Reason: Patient on Leave of Absence)031 (MAR Unhold - Provider: Automatic Discharge Provider) gi cocktail oral solution 30 mL 30 mL, Oral, 4 times daily PRN, Starting on Thu09/26/22 at 1230, Until 09/27/22 at 0313, Routine, heartburn, indigestion 1246 (Given - Provider: Neli Gonzalez RN) 0244 (APR Hold - Provider: Physician Shakir Loepz MD - Reason: Patient on Leave of Absence)031 (APR Unhold - Provider: Automatic Discharge Provider) HYDROmorphone (Dilaudid) injection 0.25 mg 0.25 mg, Intravenous, Every 4 hours PRN, Starting on Thu09/26/22 at 0751, Until 09/27/22 at 0313, Routine, severe pain 0803 (Given - Provider: Neli Gonzalez RN)1228 (Given - Provider: Neli Gonzalez RN)1659 (Given - Provider: Agnes Prescott LPN)2059 (Given - Provider: Tommie Doty) 0103 (Given - Provider: Tommie Doty)0244 (MAR Hold - Provider: Physician Shakir Lopez MD - Reason: Patient on Leave of Absence)0313 ([facility] [facility] - Provider: Automatic Discharge Provider) HYDROmorphone (Dilaudid) injection 0.5 mg (CANCELED) 0.5 mg, Intravenous, Every 4 hours PRN, Starting on Thu09/26/22 at 0300, Until Thu09/26/22 at 0751, Routine, severe pain 0336 (Given - Provider: Angela Almanzar, CHANDNI) hydrOXYzine pamoate (Vistaril) capsule 25 mg (CANCELED) 25 mg, Oral, Every 6 hours PRN, Starting on Thu09/26/22 at 0551, Until Thu09/26/22 at 1234, Routine, anxiety 0603 (Given - Provider: Angela Almanzar, RN) hydrOXYzine pamoate (Vistaril) capsule 50 mg 50 mg, Oral, Every 6 hours PRN, Starting on Thu09/26/22 at 1234, Until 09/27/22 at 0313, Routine, anxiety 1246 (Given - Provider: Neli Gonzalez RN) 0244 ([facility] Hold - Provider: Physician Shakir Lopez MD - Reason: Patient on Leave of Absence)0313 ([facility] - Provider: Automatic Discharge Provider) ketorolac (Toradol) injection 15 mg 15 mg, Intravenous, Every 6 hours PRN, Starting on Thu09/26/22 at 1231, Until 09/27/22 at 0313, Routine, severe pain 1621 (Given - Provider: Neli Gonzalez, CHANDNI) 0244 ([facility] Hold - Provider: Physician Shakir Lopez MD - Reason: Patient on Leave of Absence)0313 ([facility] - Provider: Automatic Discharge Provider) morphine PF 4 mg (CANCELED) 4 mg, Intravenous, Every 6 hours PRN, Starting on Annabel 09/25/22 at 2343, Until 09/26/22 at 0111, Routine, severe pain 0059 (Given - Provider: Hunter Good, CHANDNI) ondansetron ODT (Zofran-ODT) disintegrating tablet 4 mg 4 mg, Oral, Every 6 hours PRN, Starting on Annabel 09/25/22 at 2352, Until 09/27/22 at 0313, Routine, nausea, vomiting 0146 (Given - Provider: Hunter Good, CHANDNI)0841 (Given - Provider: Neli Gonzalez, CHANDNI) 0244 ([facility] Hold - Provider: Physician Shakir Lopez MD - Reason: Patient on Leave of Absence)031 ([facility] - Provider: Automatic Discharge Provider) oxyCODONE (Roxicodone) immediate release tablet 10 mg(Linked Group 1) 10 mg, Oral, Every 4 hours PRN, Starting on Thu09/26/22 at 0400, Until 09/27/22 at 0313, Routine, severe pain 0438 (Given - Provider: Angela Almanzar, RN)0841 (Given - Provider: Neli Gonzalez, CHANDNI)1245 (Given - Provider: Neli Gonzalez, CHANDNI)1317 (See Alternative - Provider: Neli Gonzalez, CHANDNI)1659 (Given - Provider: Agnes Prescott LPN)2213 (Given - Provider: Tommie Doty) 0038 (See Alternative - Provider: Tommie Doty)0244 ([facility] Hold - Provider: Physician Shakir Lopez MD - Reason: Patient on Leave of Absence)0313 ([facility] - Provider: Automatic Discharge Provider) oxyCODONE (Roxicodone) immediate release tablet 5 mg (CANCELED) 5 mg, Oral, Every 4 hours PRN, Starting on Annabel 09/25/22 at 2343, Until 09/26/22 at 0259, Routine, severe pain 0002 (Given - Provider: Hunter Good, CHANDNI) oxyCODONE (Roxicodone) immediate release tablet 5 mg(Linked Group 1) 5 mg, Oral, Every 4 hours PRN, Starting on 09/26/22 at 0400, Until 09/27/22 at 0313, Routine, severe pain 0438 (See Alternative - Provider: Angela Almanzar, CHANDNI)0841 (See Alternative - Provider: Neli Gonzalez, CHANDNI)1245 (See Alternative - Provider: Neli Gonzalez, CHANDNI)1317 (Return to [facility] - Provider: Neli Gonzalez, CHANDNI)1659 (See Alternative - Provider: Agnes Prescott LPN)2213 (See Alternative - Provider: Tommie Doty) 0038 (Not Given - Provider: Tommie Doty - Reason: Order changed)0244 ([facility] Hold - Provider: Physician Shakir Lopez MD - Reason: Patient on Leave of Absence)0313 ([facility] - Provider: Automatic Discharge Provider) prochlorperazine (Compazine) tablet 5 mg 5 mg, Oral, Every 6 hours PRN, Starting on 09/26/22 at 0255, Until 09/27/22 at 0313, Routine, nausea, vomiting 0336 (Given - Provider: Angela Almanzar RN)2213 (Given - Provider: Tommie Doty) 0244 ([facility] Hold - Provider: Physician Shakir Lopez MD - Reason: Patient on Leave of Absence)0313 ([facility] - Provider: Automatic Discharge Provider) sodium chloride 0.9 % flush 10 mL(Linked Group 2) 10 mL, Intravenous, Every 8 hours PRN, Starting on Annabel 09/25/22 at 2341, Until 09/27/22 at 0313, Routine, line care 0244 ([facility] Hold - Provider: Physician Shakir Lopez MD - Reason: Patient on Leave of Absence)0313 ([facility] Un[facility] - Provider: Automatic Discharge Provider) sodium chloride 0.9 % flush 10 mL(Linked Group 2) 10 mL, Intravenous, As needed, Starting on Annabel 09/25/22 at 2341, Until 09/27/22 at 0313, Routine, line care 0244 ([facility] Hold - Provider: Physician Shakir Lopez MD - Reason: Patient on Leave of Absence)0313 ([facility] Un[facility] - Provider: Automatic Discharge Provider) Linked Groups Order Group 1: oxyCODONE (Roxicodone) immediate release tablet 5 mgJump to med 5 mg, Oral, Every 4 hours PRN, Starting on Thu09/26/22 at 0400, Until 09/27/22 at 0313, Routine, severe pain Or oxyCODONE (Roxicodone) immediate release tablet 10 mgJump to med 10 mg, Oral, Every 4 hours PRN, Starting on Thu09/26/22 at 0400, Until 09/27/22 at 0313, Routine, severe pain Group 2: Insert peripheral IV (COMPLETED) Once, On Annabel 09/25/22 at 2342, For 1 occurrence And Saline lock IV (COMPLETED) Once, On Annabel 09/25/22 at 2342, For 1 occurrence And sodium chloride 0.9 % flush 10 mLJump to med 10 mL, Intravenous, Every 8 hours PRN, Starting on Annabel 09/25/22 at 2341, Until 09/27/22 at 0313, Routine, line care And sodium chloride 0.9 % flush 10 mLJump to med 10 mL, Intravenous, As needed, Starting on Annabel 09/25/22 at 2341, Until 09/27/22 at 0313, Routine, line care documented in this encounter Additional Health Concerns Infection Onset Date Last Indicated Resolved Time Gastrointestinal Rule-Out 09/25/2022 09/26/2022 1:21 PM EDT C. difficile Rule-Out 09/25/2022 09/26/20222022 1:20 PM EDT Assessment Noted Time A fall risk assessment has been complete d for the patient 11/21/2020 2:30 PM EDT documented as of this encounter Care Teams Game Designer/Creative Director Relationship Specialty Start Date End Date Elmo Escobar MD PCP - General 10/18/20 01/05/23 documented as of this encounter
--- OUTSIDE RECORDS SUMMARY | 2024-02-03 15:20 | XMS_ITS | Encounter Summary ---
Author Organization Healthcare Address [address] [place] [address] Care Team Providers Care Change Number Operator Name Role Phone Elmo Escobar MD Primary Care Provider [phone] Encounter Details Date Type Department Care Team (Latest Contact Info) Description 09/20/2022 Travel Social History Tobacco Use Types Packs/Day Years Used Date Smoking Tobacco: Every Day Cigarettes 1 15 Smokeless Tobacco: Never Alcohol Use Standard Drinks/Week Comments Not Currently 0 (1 standard drink = 0.6 oz pur e alcohol) PHQ-2 Answer Date Recorded Patient Health Questionnaire-2 Score 2 11/21/2020 CAGE ASSESSMENT Answer Date Recorded Cage unable to access Not on file 09/14/2022 Cage max number of drinks Not on file 2022 Cage Beverages a week Not on file 09/14/2022 Have you ever felt you should CUT down on your d rinking? 0 09/14/2022 Have you been ANNOYED by people criticizing your drinking? 0 09/14/2022 Have you felt GUILTY about your drinking? 0 09/14/2022 Have you had a drink first t caleb in the morning ([employer]) to steady your nerves or to get rid of a hangover? 0 09/14/2022 CAGE Questionnaire Score 0 023 Comments No [...] documented as of this encounter Care Teams Change Number Operator Relationship Specialty Start Date End Date Elmo Escobar MD PCP - General 10/18/20 01/05/23 documented as of this encounter
--- OUTSIDE RECORDS SUMMARY | 2024-02-03 15:20 | XMS_ITS | Encounter Summary ---
Author Organization Healthcare Address [address] [place] [address] Care Team Providers [employer] Marker Name Role Phone Elmo Escobar MD Primary Care Provider [phone] Reason for Visit * Reason Comments Pancreatitis * Auth/Cert (Routine) Specialty Diagnoses / Procedures Referred By Contac t Referred To Contact Diagnoses Acute on chronic pancreatitis (CMS/HCC) Terrell Hare MD [address] [place] [address] Phone: tel: fax: [facility] [address] [place] [address] Phone: tel: Referral ID Status Reason Start Date Expiration Date Visits Re quested Visits Authorized [id number] 1 1 Encounter Details Date Type Department Care Team (Late st Contact Info) Description 09/13/2022 11:18 PM EDT - 09/20/2022 6:32 PM EDT Hospital Encounter [facility] [address] [place] [address] Lester Meredith MD [address] [place] [address] Terrell Hare MD [address] [place] [address] Walt Medina MD [address] [place] [address] Kena Sanders DO [address] [place] [address] Acute on chronic pancreatitis (CMS/HCC) [...] drink first t caleb in the morning ([employer]) to steady your nerves or to get [...] Reading Time Taken Comments Blood Pressure 124/82 09/20/2022 11:08 AM EDT Pulse 87 09/20/2022 11:08 AM EDT Temperature 36.4 ??C (97.5 ??F) 09/20/2022 11:08 AM E DT Respiratory Rate 20 09/19/2022 11:35 PM EDT Oxygen Saturation 99% 09/20/2022 11:08 AM EDT Inhaled Oxygen Concentration - - Weight 115 kg (254 lb 3.1 oz) 09/20/2022 6:00 AM EDT Height 165.1 cm (5' 5 ) 09/14/2022 4:26 AM EDT Body Mass Index 42.3 09/14/2022 4:26 AM EDT documented in this encounter Discharge Instructions * Discharge Instructions* Kena Sanders DO - 09/20/2022 3:39 PM EDT Complete the 5 days of the antibiotic as prescribed, there is a urine test pending. If the results of this are positive I will call you and extend your antibiotic course. If you do not hear from me, then the results are negative. Follow up with pain clinic as we discussed this week, you have been provided with a 3 day script for Percocet for breakthrough pain. Also, follow up with PCP this week. Follow up with GI Dr. Flores as discussed. * Attachments The following attachments cannot be sent through Care Everywhere. * Acute Pancreatitis, Discharge Instructions for (German) documented in this encounter Medications at Time of Discharge pantoprazole (Protonix) 40 MG EC tablet Take 1 tablet (40 mg) by mouth 1 (one) time each day. Do not crush, chew, or split. lactulose (Chronulac) 10 GM/15ML solution Take 30 mL (20 g) by mouth 1 (one) time each day. 900 mL 09/21/2022 10/22/19 23 levoFLOXacin (Levaquin) 750 MG tablet Take 1 tablet (750 mg) by mouth 1 (one) time each day for 5 days. 5 tablet 09/21/2022 09/27/19 23 acetaminophen (Tylenol) 500 MG tablet Take [...] 1 (one) time each day. 11/19/19 23 busPIRone (Buspar) 10 MG tablet Take 1 tablet (10 mg) by mouth 2 (two) times a day. 60 tablet 09/20/2022 09/27/19 23 cholecalciferol (Vitamin D-3) 50 MCG (2000 [...] needed for nausea or vomiting. 02/23/19 24 oxyCODONE-acetamino phen (Percocet) 10-325 MG tablet Take 1 tablet by mouth every 6 (six) hours if needed for severe pain for up to 3 days. 12 tablet 09/20/2022 09/27/19 23 Pancrelipase, Itz-Epkw-Gyel, (CREON PO) Take 1 capsule by mouth 3 (three) times a day before meals. 6,000 - 19,000 - 30,000 units 09/27/19 23 pregabalin (Lyrica) 100 MG capsule Take [...] 11 doses. 11 tablet 08/08/2022 10/11/19 23 sucralfate (Carafate) 1 GM/10ML suspension Take 10 mL (1 g) by mouth 4 (four) times a day. 09/27/19 23 documented as of this encounter Miscellaneous Notes * Nursing Note - Kallie Bender RN - 09/20/2022 4:12 PM EDT Patient is discharged home. Discharge instructions provided to the patient. All concerns addressed.Patient left the unit with at 16:10hrs. * Hospital Course - Kena Sanders DO - 09/20/2022 4:00 PM EDT Rosibel Gayle is a 36 y.o. year-old female who has a past medical history of Anxiety, Arthritis,Depression, Fibromyalgia, GERD (gastroesophageal reflux disease), Hypertension, Nicotine dependence, Obesity, and Pancreatitis who presents to [facility] ED due to abdominal pain with nausea and vomiting with concern for pancreatitis flare. Patient treated for abdominal pain, n/v and diet was ADAT. On 09/18 patient was tachy to the 140's and had a fever of 102. Infectious workup completed. Significant for ground glass opacities on CT chest. Broad spectrum abx de- escalated to Levaquin. Patient seen this morning, off of diluadid for the past 24 hours. Feels ready for dc. Has called a pain mgmt clinic and will get a referral from her PCP this week. Also discussed the importance of follow up with her GI doctor for this chronic pain. During admission wound care evaluated rash/wound on her right tibia. She has been advised to followup with dermatology for this. She has had it for over 5 years, and did see dermatology in the past.It is not currently infected. We did discuss the CT abdomen results that suggest fatty liver disease. Encouraged her to lose weight. Sepsis with unclear source Tachycardia, fever Infectious workup pending - blood culture, urine culture PLAN Continue IVF and broad spectrum abx with Vanc and cefepime CT abdomen pelvis ordered, CTPE ordered Ddimer ordered Acute on chronic pancreatitis complicated by severe epigastric abdominal pain, nausea, and vomiting - Flare likely due to poor diet and ETOH consumption while on vacation last week - Lipase 696 (09/13) PLAN - continue home creon when patient able to eat -Add Lactulose and continue Miralax and docusate sodium (Colace) for constipation -3 day prescription of Percocet for breakthrough pain as patient has contacted a pain clinic and plans to see her PCP this week for a referral -follow up with her GI physician in [place] Right tibial Wound X Ray of Tibia Fibula 09/15 Soft tissue wound in the distal medial anterior lower leg. No dissectinggas. No findings of osteomyelitis. Stranding of subcutaneous fat is appreciated in the anterior andlateral lower leg. PLAN Wound Care following Continue saline moistened Aquacel Ag daily, if area does not need to be opened or drained would recommend to add in santyl daily to area of slough and cover with saline moistened Aquacel ag. Follow up with dermatology as OP History of opiate use disorder- Addiction medicine was consulted and they saw they patient but stated that she does not meet DSM5 criteria for opioid abuse - please see their consult note Palliative has seen patient on previous admissions will follow their recs Will continue oxy PRN and Dilaudid Q6 with plan to dc IV pain meds tomorrow Rash, right trunk below the breast Wound care recorded this finding 09/17/2022. Continue observation of the area to see if it improves or worsens. Chronic Medical Conditions: GERD- continue home Pantoprazole Chronic pain secondary to fibromyalgia - continue home lyrica Anxiety and Depression patient reports she was recently put back on Lorazepam for anxiety; she has not filled a prescription since April 2022 - continue home amitriptyline, added Buspar Nicotine Dependence - The patient uses cigarettes - Patient refuses NRT and smoking cessation counselling. Severe Obesity - BMI: 39.94 - Complicates all aspects of care - importance of weight reduction discussed * Discharge Instr - Diet - Kallie Bender RN - 09/20/2022 3:48 PM EDT Low fat regular diet * Discharge Summary - Kena Sanders DO - 09/20/2022 3:40 PM EDT Hospitalization Admit Date/Time: 09/13/2022 11:18 PM Admitting Attending: Terrell Hare Discharge Date: 09/20/2022 Discharge Attending Physician: Kena Sanders DO PCP name and Address: Elmo Escobar MD [address] [place] [address] / [place] [id number] Referring provider name and address: No referring provider defined for this encounter. Chief Concern, Brief History of Present Illness, and Hospital Course Rosibel Gayle is a 36 y.o. year-old female who has a past medical history of Anxiety, Arthritis,Depression, Fibromyalgia, GERD (gastroesophageal reflux disease), Hypertension, Nicotine dependence, Obesity, and Pancreatitis who presents to [facility] ED due to abdominal pain with nausea and vomiting with concern for pancreatitis flare. Patient treated for abdominal pain, n/v and diet was ADAT. On 09/18 patient was tachy to the 140's and had a fever of 102. Infectious workup completed. Significant for ground glass opacities on CT chest. Broad spectrum abx de- escalated to Levaquin. Patient seen this morning, off of diluadid for the past 24 hours. Feels ready for dc. Has called a pain mgmt clinic and will get a referral from her PCP this week. Also discussed the importance of follow up with her GI doctor for this chronic pain. During admission wound care evaluated rash/wound on her right tibia. She has been advised to followup with dermatology for this. She has had it for over 5 years, and did see dermatology in the past.It is not currently infected. We did discuss the CT abdomen results that suggest fatty liver disease. Encouraged her to lose weight. Sepsis with unclear source Tachycardia, fever Infectious workup pending - blood culture, urine culture PLAN Continue IVF and broad spectrum abx with Vanc and cefepime CT abdomen pelvis ordered, CTPE ordered Ddimer ordered Acute on chronic pancreatitis complicated by severe epigastric abdominal pain, nausea, and vomiting - Flare likely due to poor diet and ETOH consumption while on vacation last week - Lipase 696 (09/13) PLAN - continue home creon when patient able to eat -Add Lactulose and continue Miralax and docusate sodium (Colace) for constipation -3 day prescription of Percocet for breakthrough pain as patient has contacted a pain clinic and plans to see her PCP this week for a referral -follow up with her GI physician in [place] Right tibial Wound X Ray of Tibia Fibula 09/15 Soft tissue wound in the distal medial anterior lower leg. No dissectinggas. No findings of osteomyelitis. Stranding of subcutaneous fat is appreciated in the anterior andlateral lower leg. PLAN Wound Care following Continue saline moistened Aquacel Ag daily, if area does not need to be opened or drained would recommend to add in santyl daily to area of slough and cover with saline moistened Aquacel ag. Follow up with dermatology as OP History of opiate use disorder- Addiction medicine was consulted and they saw they patient but stated that she does not meet DSM5 criteria for opioid abuse - please see their consult note Palliative has seen patient on previous admissions will follow their recs Will continue oxy PRN and Dilaudid Q6 with plan to dc IV pain meds tomorrow Rash, right trunk below the breast Wound care recorded this finding 09/17/2022. Continue observation of the area to see if it improves or worsens. Chronic Medical Conditions: GERD- continue home Pantoprazole Chronic pain secondary to fibromyalgia - continue home lyrica Anxiety and Depression patient reports she was recently put back on Lorazepam for anxiety; she has not filled a prescription since April 2022 - continue home amitriptyline, added Buspar Nicotine Dependence - The patient uses cigarettes - Patient refuses NRT and smoking cessation counselling. Severe Obesity - BMI: 39.94 - Complicates all aspects of care - importance of weight reduction discussed Surgeries and Procedures Imaging CT Abdomen Pelvis w IV Contrast Final Result No evidence of acute intra-abdominal/pelvic pathology. CRITICAL RESULT: No. COMMUNICATION: Per this written report. By electronically signing this report, I, the attending physician, attest that I have personally reviewed the images/data for the above examination(s) and agree with the final edited report. Drafted by Da Lawton MD on 09/19/2022 8:22 AM Final report signed by Delbert Guzman MD on 09/19/2022 9:[address] Angio Pulmonary Embolism Final Result No pulmonary embolism. Bilateral upper lobe subpleural groundglass opacities, most consistent with atypical viral infection including Covid 19. Mild thoracic lymphadenopathy, predominantly by the number of subcentimeter to borderline enlarged lymph nodes. Pre-existing right breast lesion, without significant change in size. CRITICAL RESULT: No. COMMUNICATION: Per this written report. Drafted by Juany Larose MD on 09/19/2022 8:23 AM Final report signed by Juany Larose MD on 09/19/2022 8:29 AM XR Abdomen 1 View Final Result Gas and fecal material diffusely and mildly dilated and nondilated colon. CRITICAL RESULT: No. COMMUNICATION: Per this written report. Drafted by Quan Stock MD on 09/18/2022 12:27 PM Final report signed by Quan Stock MD on 09/18/2022 12:29 PM XR Tibia Fibula Right 2+ Views Final Result No findings of deep infection. CRITICAL RESULT: No. COMMUNICATION: Per this written report. Drafted by Sharif Garcia MD on 09/15/2022 3:11 PM Final report signed by Sharif Garcia MD on 09/15/2022 3:12 PM Medication List .. acetaminophen 500 MG tablet Commonly known as: Tylenol Take 2 tablets (1,000 mg) by mouth every 6 (six) hours if needed for pain. amitriptyline 25 MG tablet Commonly known as: Elavil Take 1 tablet (25 mg) by mouth every night. busPIRone 10 MG tablet Commonly known as: Buspar Take 1 tablet (10 mg) by mouth 2 (two) times a day. cholecalciferol 50 MCG (2000 UT) capsule Commonly known as: Vitamin D-3 Take 1 capsule (2,000 Units) by mouth 1 (one) time each day. CREON PO Take 1 capsule by mouth 3 (three) times a day before meals. 6,000 - 19,000 - 30,000 units cyanocobalamin 1000 MCG tablet Commonly known as: [...] (one) time each day. Start taking on: September 21, 2022 levoFLOXacin 750 MG tablet Commonly known as: Levaquin Take 1 tablet (750 mg) by mouth 1 (one) time each day for 5 days. Start taking on: September 21, 2022 naloxone 4 mg/0.1 mL nasal spray Commonly [...] hours if needed for nausea or vomiting. oxyCODONE-acetaminophen 10-325 MG tablet Commonly known as: Percocet Take 1 tablet by mouth every 6 (six) hours if needed for severe pain for up to 3 days. pantoprazole 40 MG EC tablet Commonly [...] or vomiting for up to 11 doses. sucralfate 1 GM/10ML suspension Commonly known as: Carafate Take 10 mL (1 g) by mouth 4 (four) times a day. vitamin C 250 MG tablet Take 1 tablet (250 mg) by mouth 1 (one) time each day. Where to Get Your Medications These medications were sent to [facility] [place] [address] busPIRone 10 MG tablet lactulose 10 GM/15ML solution levoFLOXacin 750 MG tablet naloxone 4 mg/0.1 mL nasal spray oxyCODONE-acetaminophen 10-325 MG tablet Discharge Diagnosis Medical Problems Active and Resolved Hospital Problems Hospital Bipolar depression (CMS/HCC) (Chronic) Fibromyalgia (Chronic) GERD (gastroesophageal reflux disease) (Chronic) Obesity (BMI 35.0-39.9 without comorbidity) (Chronic) Chronic pain (Chronic) Anxiety Epigastric pain * (Principal) Acute on chronic pancreatitis (CMS/HCC) Hypertension Nicotine dependence Depression Atypical pneumonia Post Discharge Instructions Complete the 5 days of the antibiotic as prescribed, there is a urine test pending. If the results of this are positive I will call you and extend your antibiotic course. If you do not hear from me, then the results are negative. Follow up with pain clinic as we discussed this week, you have been provided with a 3 day script for Percocet for breakthrough pain. Also, follow up with PCP this week. Follow up with GI Dr. Flores as discussed. Outpatient Follow-Up Future Appointments Date Time Provider Department Center 11/07/2022 9:30 AM [facility] Results Pending At Discharge Pending Labs Order Current Status Legionella pneumophilia Urinary Antigen In process OXYCODONE CONFIRMATION,URINE In process THC Urine Confirm LCMSMS In process Blood Culture (Aerobic/Anaerobet Set) Preliminary result Blood Culture (Aerobic/Anaerobet Set) Preliminary result Methicillin Resistant Staphylococcus aureus (MRSA) Culture Preliminary result Pertinent Physical Exam At Time of Discharge Physical Exam Vitals and nursing note reviewed. Constitutional: Appearance: Normal appearance. She is normal weight. She is not ill-appearing. HENT: Head: Normocephalic and atraumatic. Mouth/Throat: Mouth: Mucous membranes are moist. Cardiovascular: Rate and Rhythm: Normal rate. Pulses: Normal pulses. Heart sounds: Normal heart sounds. Pulmonary: Effort: Pulmonary effort is normal. Breath sounds: Normal breath sounds. Abdominal: General: Bowel sounds are normal. Tenderness: There is no abdominal tenderness. Musculoskeletal: Right lower leg: No edema. Left lower leg: No edema. Skin: General: Skin is warm. Findings: Lesion present. Neurological: General: No focal deficit present. Mental Status: She is alert. Psychiatric: Mood and Affect: Mood normal. Thought Content: Thought content normal. Discharge Disposition/Condition Disposition: Home Condition: Stable (s/sx potential problems absent or manageable) I spent >30 minutes of patient care and instruction time in preparation for this discharge. Electronically Signed by: Kena Sanders DO - 09/20/2022 - 4:01 PM * Care Plan - Kallie Bender RN - 09/20/2022 11:27 AM EDT ONGOING/ PROGRESSING * Care Plan - Jose Arango - 09/19/2022 11:43 PM EDT Problem: Adult Inpatient Plan of Care Goal: Plan of Care Review Outcome: Ongoing, Progressing Goal: Patient-Specific Goal (Individualized) Outcome: Ongoing, Progressing Goal: Absence of Hospital-Acquired Illness or Injury Outcome: Ongoing, Progressing Goal: Optimal Comfort and Wellbeing Outcome: Ongoing, Progressing Goal: Readiness for Transition of Care Outcome: Ongoing, Progressing * Progress Notes - Kena Sanders DO - 09/19/2022 4:25 PM EDT Images from the original note were not included. Subjective Patient seen and examined this morning. Mother is bedside. Fever and headache improved. Patient denies SOA or cough. We discussed CT results. Pain controlled. Review of Systems Constitutional: Negative for chills. Respiratory: Negative for cough and shortness of breath. Cardiovascular: Negative for chest pain. Gastrointestinal: Positive for abdominal pain. Genitourinary: Negative for dysuria. Musculoskeletal: Negative for back pain. Skin: Positive for rash. Negative for color change. Medications amitriptyline, 25 mg, Oral, Nightly busPIRone, 10 mg, Oral, BID docusate sodium, 100 mg, Oral, BID enoxaparin, 40 mg, Subcutaneous, Daily lactulose, 20 g, Oral, Daily levoFLOXacin, 750 mg, Oral, Daily nystatin, 1 Application, Topical, BID pancrelipase (Bkp-Esbt-Vozd), 2 capsule, Oral, TID with meals pantoprazole, 40 mg, Oral, BID polyethylene glycol, 17 g, Oral, Daily pregabalin, 300 mg, Oral, BID sucralfate, 1 g, Oral, Before meals & nightly vancomycin, 2,000 mg, Intravenous, q12h lactated Ringer's, 125 mL/hr, Last Rate: 125 mL/hr (09/18/22 1111) PRN medications: acetaminophen, hydrOXYzine pamoate, oxyCODONE OR oxyCODONE, pancrelipase (Veh-Omru-Dqjk), prochlorperazine, [COMPLETED] Insert peripheral IV AND [COMPLETED] Saline lock IV AND sodium chloride AND sodium chloride Objective Last Recorded Vitals Blood pressure 104/72, pulse 86, temperature 36.5 ??C (97.7 ??F), resp. rate 15, height 1.651 m (5'5 ), weight 110 kg (243 lb 9.7 oz), SpO2 95 %, not currently . Intake/Output Summary (Last 24 hours) at 09/19/2022 1626 Last data filed at 09/19/2022 0900 Gross per 24 hour Intake 1782.08 ml Output -- Net 1782.08 ml Physical Exam Constitutional: General: She is not in acute distress. Appearance: Normal appearance. She is well-developed. She is not diaphoretic. HENT: Head: Normocephalic and atraumatic. Eyes: General: No scleral icterus. Conjunctiva/sclera: Conjunctivae normal. Pupils: [...] no mass. Tenderness: There is abdominal tenderness. Hernia: No hernia is present. Musculoskeletal: Cervical back: Normal range of motion and neck supple. Skin: General: Skin is warm and dry. Findings: Rash present. Neurological: Mental Status: She is alert and oriented to person, place, and time. Psychiatric: Mood and Affect: Mood normal. Behavior: Behavior normal. Thought Content: Thought content normal. Judgment: Judgment normal. LABS Results from last 7 days Lab Units 09/19/22 0404 09/17/22 0336 09/15/22 1759 09/15/22 1042 09/14/22 0507 09/13/22 2355 WBC 10*3/uL 2.82* 4.34 5.21 5.62 < > 7.60 HEMOGLOBIN g/dL 10.3* 10.6* 10.3* 10.5* < > 12.3 HEMATOCRIT % 32.1* 33.3* 32.5* 33.0* < > 37.6 PLATELETS 10*3/uL 150* 186 185 187 < > 264 NEUTROS PCT % -- -- -- 54.0 -- 53.0 LYMPHS PCT % -- -- -- 39.0 -- 37.0 MONOS PCT % -- -- -- 5.0 -- 6.0 EOS PCT % -- -- -- 1.0 -- 2.0 < > = values in this interval not displayed. Results from last 7 days Lab Units 09/19/22 0404 09/17/22 0336 09/15/22 17509/15/22 1042 SODIUM mmol/L 131* 139 137 139 POTASSIUM mmol/L 3.4* 4.0 4.0 4.3 CHLORIDE mmol/L 98 101 101 104 CO2 mmol/L 24 26 BUN mg/dL 7 3* 5* 6* CREATININE mg/dL 0.81 0.76 0.74 0.71 CALCIUM mg/dL 7.9* 8.9 8.7* 8.7* BILIRUBIN TOTAL mg/dL -- 0.3 0.3 0.2 ALKALINE PHOSPHATASE U/L -- 90 90 85 ALT U/L -- 27 20 19 AST U/L -- 33* 17 19 GLUCOSE mg/dL 136* 135* 93 91 IMAGING XR Abdomen 1 View Result Date: 09/18/2022 Impression: Gas and fecal material diffusely and mildly dilated and nondilated colon. CRITICAL RESULT: No. COMMUNICATION: Per this written report. Drafted by Quan Stock MD on 09/18/2022 12:27 PMFinal report signed by Quan Stock MD on 09/18/2022 12:29 PM Assessment/Plan Principal Problem: Acute on chronic pancreatitis (CMS/HCC) Active Problems: Bipolar depression (CMS/HCC) Anxiety Fibromyalgia Epigastric pain GERD (gastroesophageal reflux disease) Obesity (BMI 35.0-39.9 without comorbidity) Chronic pain Hypertension Nicotine dependence Depression Rosibel Gayle is a 36 y.o. year-old female who has a past medical history of Anxiety, Arthritis,Depression, Fibromyalgia, GERD (gastroesophageal reflux disease), Hypertension, Nicotine dependence, Obesity, and Pancreatitis who presents to [facility] ED due to abdominal pain with nausea and vomiting with concern for pancreatitis flare. Sepsis 2/2 atypical bacterial pna Tachycardia, fever Infectious workup pending - blood culture, urine culture CT abdomen pelvis ordered CTPE non-acute, does show bilateral upper lobe ground glass opacities Ddimer elevated PLAN Deescaalte IV abx to levaquin and Vanc MRSA nares pending, will dc vanc if negative Acute on chronic pancreatitis complicated by severe epigastric abdominal pain, nausea, and vomiting - Flare likely due to poor diet and ETOH consumption while on vacation last week - Lipase 696 (09/13) PLAN - continue home creon when patient able to eat -ADAT -Compazine for nausea -Add Lactulose and continue Miralax and docusate sodium (Colace) for constipation -Dc dilaudid, continue PRN oxy PO Right tibial Wound X Ray of Tibia Fibula 09/15 Soft tissue wound in the distal medial anterior lower leg. No dissectinggas. No findings of osteomyelitis. Stranding of subcutaneous fat is appreciated in the anterior andlateral lower leg. PLAN Wound Care following Continue saline moistened Aquacel Ag daily, if area does not need to be opened or drained would recommend to add in santyl daily to area of slough and cover with saline moistened Aquacel ag. History of opiate use disorder- Addiction medicine was consulted and they saw they patient but stated that she does not meet DSM5 criteria for opioid abuse - please see their consult note Palliative has seen patient on previous admissions will follow their recs Will continue oxy PRN and Dilaudid Q6 with plan to dc IV pain meds tomorrow Rash, right trunk below the breast Wound care recorded this finding 09/17/2022. Continue observation of the area to see if it improves or worsens. Chronic Medical Conditions: GERD- continue home Pantoprazole Chronic pain secondary to fibromyalgia - continue home lyrica Anxiety and Depression- continue home amitriptyline, patient reports she was recently put back on Lorazepam for anxiety; she has not filled a prescription since April 2022 Nicotine Dependence - The patient uses cigarettes - Patient refuses NRT and smoking cessation counselling. Severe Obesity - BMI: 39.94 - Complicates all aspects of care Diet - Regular CLD Code status - Full Code DVT prophylaxis - Lovenox prophylaxis Discharge planning - not medically ready Kena Sanders DO Department of Internal Medicine Division of Hospital Medicine Pager: [phone] 09/19/2022 * Consults - Lida Morales RD - 09/19/2022 12:36 PM EDT Adult Nutrition Evaluation Note Rosibel Gayle 36 y.o. female CSN: [id number] Room/Bed 719/003Y Nutrition evaluation type: follow-up Reason for evaluation: Hospital course: 36 y/o F presented 09/13 due to abdominal pain with nausea and vomiting, concern for pancreatitis flare. New sepsis with unclear source, infectious workup pending. Past medical/ surgical history: Past Medical History: Diagnosis Date Anxiety Arthritis Depression Fibromyalgia GERD (gastroesophageal reflux disease) Hypertension Nicotine dependence Obesity Pancreatitis Past Surgical History: Procedure Laterality Date CHOLECYSTECTOMY ERCP ESOPHAGOGASTRODUODENOSCOPY HAND SURGERY Social history: Additional comments: 09/19: Pt now on clear liquid diet, upgraded from NPO. She had some vomiting on 09/17. Nausea ongoing. Vitals and Basic Assessment: BP: 104/72 Temp: 36.5 ??C (97.7 ??F) Oxygen Therapy: None (Room air) [place] Coma Scale Score: 15 Scott Scale Score: 20 Last BM Date: 09/13/22 (per pt report I had diarrhea at home ) GI Symptoms: Constipation Edema: Generalized Skin: wound right pretibial Allergies: Reviewed, no known food allergies Medications: amitriptyline, 25 mg, Oral, Nightly busPIRone, 10 mg, Oral, BID docusate sodium, 100 mg, Oral, BID enoxaparin, 40 mg, Subcutaneous, Daily lactulose, 20 g, Oral, Daily levoFLOXacin, 750 mg, Oral, Daily nystatin, 1 Application, Topical, BID pancrelipase (Bcq-Djdk-Wrrj), 2 capsule, Oral, TID with meals pantoprazole, 40 mg, Oral, BID polyethylene glycol, 17 g, Oral, Daily pregabalin, 300 mg, Oral, BID sucralfate, 1 g, Oral, Before meals & nightly vancomycin, 2,000 mg, Intravenous, q12h lactated Ringer's, 125 mL/hr, Last Rate: 125 mL/hr (09/18/22 1111) PRN medications: acetaminophen, hydrOXYzine pamoate, oxyCODONE OR oxyCODONE, pancrelipase (Aod-Cnxk-Lugy), prochlorperazine, [COMPLETED] Insert peripheral IV AND [COMPLETED] Saline lock IV AND sodium chloride AND sodium chloride Meds were reviewed: Yes Labs: Lab Results Component Value Date WBC 2.82 (L) 09/19/2022 HGB 10.3 (L) 09/19/2022 HCT 32.1 (L) 09/19/2022 MCV 82 09/19/2022 PLT 150 (L) 09/19/2022 Lab Results Component Value Date GLUCOSE 136 (H) 09/19/2022 CALCIUM 7.9 (L) 09/19/2022 NA 131 (L) 09/19/2022 K 3.4 (L) 09/19/2022 CO2 24 09/19/2022 CL 98 09/19/2022 BUN 7 09/19/2022 CREATININE 0.81 09/19/2022 PHOS 4.1 09/19/2022 MG 2.1 09/15/2022 HGBA1C 5.3 10/18/2020 Anthropometrics: Height: 165.1 cm (5' 5 ) Weight: 110 kg (243 lb 9.7 oz) BMI (Calculated): 40.54 Weight Evaluation: Extreme Obesity (BMI > 40) [place] Body Weight (kg): 56.8 Percent [place] Body Weight: 195 Adjusted Body Weight (kg): 70.2 Wt Readings from Last 10 Encounters: 09/19/22 110 kg (243 lb 9.7 oz) 08/08/22 112 kg (247 lb 12.8 oz) 07/24/22 112 kg (247 lb 12.8 oz) 07/11/22 110 kg (243 lb 9.7 oz) 06/23/22 108 kg (237 lb 10.5 oz) 06/19/22 110 kg (241 lb 10 oz) 06/14/22 108 kg (238 lb 8.6 oz) 06/11/22 104 kg (229 lb 4.5 oz) 05/22/22 103 kg (226 lb 10.1 oz) 03/22/22 103 kg (226 lb 6.6 oz) Estimated Needs: Kcal/ K-33 Kcal Provided: 5273-2399 Kcal Needs Based On: Adjusted weight (71.1 kg) Gm Protein/ Kg : 1.2-1.5 Protein Provided: 85-107 Protein Needs Based On: Adjusted weight (71.1 kg) Fluid Provided: Per MD team Current Nutrition Intake: Diet Supplements: None Diet Order: Adult Diet Diet Texture: Clear liquid Percent Meals Eaten (%): 50% x 4 meal intakes Diet Experience and Nutrition History: Diet Education Provided: Will monitor Pertinent home medications: Vitamin C, Vitamin D3, Vitamin B12, Creon, Protonix Orthodox needs: Nutrition Focused Physical Exam: Physical exam performed on (date): 09/15/22 Temples (muscles): None Clavicle (muscle): None Shoulder (muscle): None Interosseous (muscle): None Orbital (fat): None Triceps (fat): None Energy Intake: Eating well prior to acute flare of pancreatitis Assessment of Malnutrition: Malnutrition Identified: No Nutrition Problem: Increased nutrient needs (kcal, pro) related to increased biological demand as evidenced by acute on chronic pancreatitis. Status of Nutrition Diagnosis: New Nutrition Interventions and Recommendations: - Continue clear liquid diet. Advance diet as tolerated to low fat. - If diet unable to be advanced past clears in the next 2-3 days, would rec alternative means of nutrition. - Will add Boost Breeze TID (750 kcal, 27g protein) to supplement while on clear liquids. - Rec MVI with minerals daily to help meet RDIs. - Creon with meals. - Rec obtaining weight 1x/week. Nutrition Monitoring and Goals: - Will monitor PO intake, weight status, lab results, GI tolerance, and skin integrity. - Pt will have adequate source of nutrition by follow up. (Not met, continue) - Pt will maintain weight this admission. (Ongoing) Acuity Level: 4 Lida A Carmen, RD, LD * Care Plan - Kallie Bender RN - 09/19/2022 11:17 AM EDT Ongoing/ progressing * Significant Event - Val Palma APRN - 09/19/2022 9:19 AM EDT Addiction Consult & Education Services UDS appropriate. ACES will sign off at this time. Please see recommendations from initial consult note on 09/18. Please contact with questions. Val Palma, AJAY [phone], secure chat preferred * Procedures - Leny Gutierrez RN - 09/19/2022 1:06 AM EDTAssociated Order(s): Insert peripheral IV Insert peripheral IV Performed by: Leny Gutierrez RN Authorized by: Kena Sanders DO Universal Protocol: Verbal consent obtained?: Yes Written consent obtained?: Yes Risks and benefits: Risks, benefits and alternatives were discussed Consent given by: Patient Patient states understanding of procedure being performed: Yes Patient's understanding of procedure matches consent: Yes Patient identity confirmed: Verbally with patient, arm band, provided demographic data and hospital-assigned identification number Time out: Immediately prior to the procedure a time out was called Hand hygiene: Hand hygiene performed prior to insertion Inserted using aseptic techniques: Yes Preparation: Skin prepped with chg Orientation: Right Location: Forearm Catheter placed: Peripheral IV Catheter size: 20g 2.25. Line Technique: Ultrasound Guidance Number of attempts: 1 IV flushes: Without difficulty and positive blood return noted and IV luer locked Patient tolerance: Patient tolerated the procedure well, there were no complications and age appropriate response IV site covered with: Transparent semipermeable dressing * Care Plan - Jose Arango - 09/19/2022 12:39 AM EDT Problem: Adult Inpatient Plan of Care Goal: Plan of Care Review 09/19/202238 by Jose Arango Outcome: Ongoing, Progressing 09/19/202238 by Jose Arango Outcome: Ongoing, Progressing 09/19/202238 by Jose Arango Outcome: Ongoing, Progressing Goal: Patient-Specific Goal (Individualized) 09/19/202238 by Jose Arango Outcome: Ongoing, Progressing 09/19/202238 by Jose Arango Outcome: Ongoing, Progressing Goal: Absence of Hospital-Acquired Illness or Injury 09/19/202238 by Jose Arango Outcome: Ongoing, Progressing 09/19/202238 by Jose Arango Outcome: Ongoing, Progressing Goal: Optimal Comfort and Wellbeing 09/19/202238 by Jose Arango Outcome: Ongoing, Progressing 09/19/202238 by Jose Arango Outcome: Ongoing, Progressing 09/19/202238 by Jose Arango Outcome: Ongoing, Progressing Goal: Readiness for Transition of Care 09/19/202238 by Jose Arango Outcome: Ongoing, Progressing 09/19/202238 by Jose Arango Outcome: Ongoing, Progressing 09/19/202238 by Jose Arango Outcome: Ongoing, Progressing * Care Plan - Brooke Shook LPN - 09/18/2022 6:28 PM EDT Problem: Adult Inpatient Plan of Care Goal: Plan of Care Review Outcome: Ongoing, Progressing Flowsheets (Taken 09/18/2022 1828) Progress: improving Plan of Care Reviewed With: patient Goal: Patient-Specific Goal (Individualized) Outcome: Ongoing, Progressing Goal: Absence of Hospital-Acquired Illness or Injury Outcome: Ongoing, Progressing Goal: Optimal Comfort and Wellbeing Outcome: Ongoing, Progressing Goal: Readiness for Transition of Care Outcome: Ongoing, Progressing Problem: Pain Acute Goal: Optimal Pain Control and Function Outcome: Ongoing, Progressing Problem: Pancreatitis Goal: Fluid and Electrolyte Balance Outcome: Ongoing, Progressing Goal: Absence of Infection Signs and Symptoms Outcome: Ongoing, Progressing Goal: Optimal Nutrition Delivery Outcome: Ongoing, Progressing Goal: Optimal Pain Control and Function Outcome: Ongoing, Progressing * Progress Notes - Kena Sanders DO - 09/18/2022 4:07 PM EDT Images from the original note were not included. Subjective Patient with tachycardia and T max 102 this morning. Patient was seen and examined at bedside. Endorses headache, fever, chills, ongoing nausea. States she vomited with dinner last night. Denies SOA, cough, chest pain. Continues to endorse abdominal pain. Has not had a BM since admission. Review of Systems Constitutional: Positive for chills and fever. Respiratory: Negative for cough and shortness of breath. Cardiovascular: Negative for chest pain. Gastrointestinal: Positive for abdominal pain. Genitourinary: Negative for dysuria. Musculoskeletal: Negative for back pain. Skin: Positive for color change and rash. Medications amitriptyline, 25 mg, Oral, Nightly busPIRone, 10 mg, Oral, BID cefepime, 2 g, Intravenous, q8h docusate sodium, 100 mg, Oral, BID enoxaparin, 40 mg, Subcutaneous, Daily lactulose, 20 g, Oral, Daily nystatin, 1 Application, Topical, BID pancrelipase (Riw-Wlub-Vdly), 2 capsule, Oral, TID with meals pantoprazole, 40 mg, Oral, BID polyethylene glycol, 17 g, Oral, Daily pregabalin, 300 mg, Oral, BID sucralfate, 1 g, Oral, Before meals & nightly [START ON 09/19/2022] vancomycin, 2,000 mg, Intravenous, q12h lactated Ringer's, 125 mL/hr, Last Rate: 125 mL/hr (09/18/22 1111) PRN medications: acetaminophen, HYDROmorphone, hydrOXYzine pamoate, oxyCODONE OR oxyCODONE, pancrelipase (Fmz-Jhor-Tuvc), prochlorperazine, [COMPLETED] Insert peripheral IV AND [COMPLETED] Saline lock IV AND sodium chloride AND sodium chloride Objective Last Recorded Vitals Blood pressure 129/73, pulse (!) 135, temperature 37.6 ??C (99.6 ??F), resp. rate 15, height 1.651 m (5' 5 ), weight 114 kg (250 lb 7.1 oz), SpO2 95 %, not currently . Intake/Output Summary (Last 24 hours) at 09/18/2022 1607 Last data filed at 09/17/2022 1700 Gross per 24 hour Intake 240 ml Output -- Net 240 ml Physical Exam Constitutional: General: She is not in acute distress. Appearance: Normal appearance. She is well-developed. She is not diaphoretic. HENT: Head: Normocephalic and atraumatic. Eyes: General: No scleral icterus. Conjunctiva/sclera: Conjunctivae normal. Pupils: [...] no mass. Tenderness: There is abdominal tenderness. Hernia: No hernia is present. Musculoskeletal: Cervical back: Normal range of motion and neck supple. Skin: General: Skin is warm and dry. Findings: Rash present. Neurological: Mental Status: She is alert and oriented to person, place, and time. Psychiatric: Mood and Affect: Mood normal. Behavior: Behavior normal. Thought Content: Thought content normal. Judgment: Judgment normal. LABS Results from last 7 days Lab Units 09/17/22 0336 09/15/22 1759 09/15/22 1042 09/14/22 0507 09/13/22 2355 WBC 10*3/uL 4.34 5.21 5.62 < > 7.60 HEMOGLOBIN g/dL 10.6* 10.3* 10.5* < > 12.3 HEMATOCRIT % 33.3* 32.5* 33.0* < > 37.6 PLATELETS 10*3/uL 186 185 187 < > 264 NEUTROS PCT % -- -- 54.0 -- 53.0 LYMPHS PCT % -- -- 39.0 -- 37.0 MONOS PCT % -- -- 5.0 -- 6.0 EOS PCT % -- -- 1.0 -- 2.0 < > = values in this interval not displayed. Results from last 7 days Lab Units 09/17/22 0336 09/15/22 1759 09/15/22 1042 SODIUM mmol/L 139 137 139 POTASSIUM mmol/L 4.0 4.0 4.3 CHLORIDE mmol/L 101 101 104 CO2 mmol/L 27 24 26 BUN mg/dL 3* 5* 6* CREATININE mg/dL 0.76 0.74 0.71 CALCIUM mg/dL 8.9 8.7* 8.7* BILIRUBIN TOTAL mg/dL 0.3 0.3 0.2 ALKALINE PHOSPHATASE U/L 90 90 85 ALT U/L 27 20 19 AST U/L 33* 17 19 GLUCOSE mg/dL 135* 93 91 IMAGING XR Abdomen 1 View Result Date: 09/18/2022 Impression: Gas and fecal material diffusely and mildly dilated and nondilated colon. CRITICAL RESULT: No. COMMUNICATION: Per this written report. Drafted by Quan Stock MD on 09/18/2022 12:27 PMFinal report signed by Quan Stock MD on 09/18/2022 12:29 PM Assessment/Plan Principal Problem: Acute on chronic pancreatitis (CMS/HCC) Active Problems: Bipolar depression (CMS/HCC) Anxiety Fibromyalgia Epigastric pain GERD (gastroesophageal reflux disease) Obesity (BMI 35.0-39.9 without comorbidity) Chronic pain Hypertension Nicotine dependence Depression Rosibel Gayle is a 36 y.o. year-old female who has a past medical history of Anxiety, Arthritis,Depression, Fibromyalgia, GERD (gastroesophageal reflux disease), Hypertension, Nicotine dependence, Obesity, and Pancreatitis who presents to [facility] ED due to abdominal pain with nausea and vomiting with concern for pancreatitis flare. Sepsis with unclear source Tachycardia, fever Infectious workup pending - blood culture, urine culture PLAN Continue IVF and broad spectrum abx with Vanc and cefepime CT abdomen pelvis ordered, CTPE ordered Ddimer ordered Acute on chronic pancreatitis complicated by severe epigastric abdominal pain, nausea, and vomiting - Flare likely due to poor diet and ETOH consumption while on vacation last week - Lipase 696 (09/13) PLAN - continue home creon when patient able to eat -Continue clear liquid diet. -Compazine for nausea. -Add Lactulose and continue Miralax and docusate sodium (Colace) for constipation -Reducing Hydromorphone: 1mg Q6 to start weaning off IV pain management since pt. Is tolerating PO medications and food. Right tibial Wound X Ray of Tibia Fibula 09/15 Soft tissue wound in the distal medial anterior lower leg. No dissectinggas. No findings of osteomyelitis. Stranding of subcutaneous fat is appreciated in the anterior andlateral lower leg. PLAN Wound Care following Continue saline moistened Aquacel Ag daily, if area does not need to be opened or drained would recommend to add in santyl daily to area of slough and cover with saline moistened Aquacel ag. History of opiate use disorder- Addiction medicine was consulted and they saw they patient but stated that she does not meet DSM5 criteria for opioid abuse - please see their consult note Palliative has seen patient on previous admissions will follow their recs Will continue oxy PRN and Dilaudid Q6 with plan to dc IV pain meds tomorrow Rash, right trunk below the breast Wound care recorded this finding 09/17/2022. Continue observation of the area to see if it improves or worsens. Chronic Medical Conditions: GERD- continue home Pantoprazole Chronic pain secondary to fibromyalgia - continue home lyrica Anxiety and Depression- continue home amitriptyline, patient reports she was recently put back on Lorazepam for anxiety; she has not filled a prescription since April 2022 Nicotine Dependence - The patient uses cigarettes - Patient refuses NRT and smoking cessation counselling. Severe Obesity - BMI: 39.94 - Complicates all aspects of care Diet - Regular CLD Code status - Full Code DVT prophylaxis - Lovenox prophylaxis Discharge planning - not medically ready Kena Sanders DO Department of Internal Medicine Division of [facility] Medicine Pager: [phone] 09/18/2022 * Progress Notes - Katy Jaimes RN - 09/18/2022 3:07 PM EDT POC reviewed with patient care team; patient is not medically ready for dc planning. Patient developed fever last night. Team plans work up to determine source before dc planning. Katy Jaimes RN * Progress Notes - Lisa Cleveland PharmD - 09/18/2022 12:48 PM EDT Pharmacokinetic Consult - Vancomycin HPI and Hospital Course: Rosibel Gayle is a 36 y.o. female admitted for Acute on chronic pancreatitis ([facility]). Pharmacy consulted to assist with management of vancomycin therapy for possible sepsis. Serum creatinine: 0.76 mg/dL 09/17/22 0336 Estimated creatinine clearance: 125 mL/min Population Kinetics Calculations: Vd (L): 79.8 Ke (h-1): 0.104 Half-life (hr): 6.67 Cl (L/h): 8.3 Required Total Daily Dose (mg): 4150 Rounded Total Daily Dose (mg): 4000 Cmax, exp (mg/L): 35.2 Ctr, exp (mg/L): 12.4 AUCexp: 482 Assessment/Plan: 1. Recommend to initiate vancomycin 3g loading dose, followed by vancomycin 2g IV q12 maintenance dose to target AUC 400-600 and trough 10-20 mcg/mL. 2. Recommend to obtain 2 level kinetics prior to 4th or 5th dose of current regimen to assess safety and efficacy. 3. Closely monitor renal function while patient is receiving antimicrobial therapy. Would suggest obtaining CBC, BMP at least 2-3 times weekly while admitted to assess renal function (SCr/BUN/UOP). 4. De-escalate therapy when clinically appropriate. Thank you for this consult. Please reach out to pharmacy for any additional questions. Pharmacy will continue to follow. Submitted by: Lisa Cleveland PharmD 09/18/2022 12:47 PM * Nursing Note - Regina Fields RN - 09/18/2022 12:10 PM EDT 09/18/22 1200 Event/Notification Description Event Location [facility] and Room Number 719 Reason for Rapid Response Team notification IV + Labs Is the patient a DNR? No Type of Event IV/Labs Rapid Response Outcome Survival Yes Rapid Response Termination Due to Patient remained on floor #22 PIVL obtained in left foot using aseptic technique on second attempt; unable to obtain labs with 4 attempts; Patient was very understanding and tolerated all attempts well * Consults - Monse Almeida APRN - 09/17/2022 12:14 PM EDTAssociated Order(s): Inpatient consult to Addiction Medicine Inpatient consult to Addiction Medicine Consult performed by: Monse Almeida APRN Consult ordered by: Kena Sanders DO Reason for consult: Suspected OUD Addiction Consult & Education Service Initial Assessment Reason for Consult: Suspected OUD History of Present Illness: Rosibel Gayle is a 36 y.o. female with a PMHx significant for arthritis, anxiety, depression, fibromyalgia, GERD, HTN, and chronic pancreatitis who was admitted to for acute on chronic pancreatitis complicated by severe epigastric, abdominal pain, nausea and vomiting. ACES team was consulted to speak with the patient regarding her use of opiates. Pt is seen awake, alert and lying in bed. Pt is tearful during interview secondary to abdominal pain being 9/10 in the epigastric area. Pt was agreeable to speak with the ACES team. Patient notes history of heavy alcohol use in her early 20's, but stopped drinking alcohol when she starting having children. Pt admits to recent use of alcohol, [place] on her anniversary trip which triggered her current bout of pancreatitis. Pt notes the chronic pancreatitis was previously in better control with the use of carafate and Protonix 4 times per day, but since her ERCP it seems she staysflared. Pain is typically managed by short intervals of oxycodone prescribed by her PCP. Recently, he has recommmended that she be evaluated by a pain clinic for her chronic pain. Patient went to a pain clinic in her home town which suggested a pain pump, but she was afraid to pursue this option due to fear it would rupture and make her overdose. She would like to be referred to [facility] in [place]. Pt denies any misuse of her opiate pain medication either via route or by quantity taken. She does acknowledge the presence of tolerance with prolonged use of narcotic medication for flares of her pancreatitis. Pt denies experiencing withdrawal symptoms when she stops the medication. She denies opia te cravings. She denies history of illicit drugs. UDS was not obtained at the time of admission. Substance Use & Treatment History: Injection Practices & Complications: Denies. Overdose: Denies. Opioids: As prescribed. Benzodiazepines: Prescribed. Methamphetamine: Denies. Cocaine: Denies. Other Stimulants: Denies. Hallucinogenics: Denies. Marijuana: Intermittent use in the past. Synthetics: Denies. Kratom: Denies. EtOH: As above. Remission and Recovery: Denies. Tobacco Use: 1 ppd x 15 years DSM Opioid Use Disorder criteria - past 12 months : Failure to fulfill responsibilities Use in hazardous situations Cravings Social/interpersonal problems Using larger amounts or longer than intended Cannot cut down Extensive time spent in getting/using/recovering Given up or decrease other important parts of life Ongoing use despite psychological/physical problems X Presence of tolerance Presence of withdrawal 03/05 Review of Systems: Review of Systems Constitutional: Positive for fatigue. Gastrointestinal: Positive for abdominal pain. Psychiatric/Behavioral: Positive for agitation. All other systems reviewed and are negative. Active Problems: Patient Active Problem List Diagnosis Bipolar depression ([facility]/HCC) Anxiety Fibromyalgia Epigastric pain Duodenal ulcer Choledocholithiasis GERD (gastroesophageal reflux disease) Obesity (BMI 35.0-39.9 without comorbidity) Gastric erosions Chronic pain Opiate dependence ([facility]/HCC) Intentional overdose ([facility]/HCC) Acute on chronic pancreatitis ([facility]) Hypertension Nicotine dependence Depression Past Medical History: Past Medical History: Diagnosis Date Anxiety Arthritis Depression Fibromyalgia GERD (gastroesophageal reflux disease) Hypertension Nicotine dependence Obesity Pancreatitis Surgical History: Past Surgical History: Procedure Laterality Date CHOLECYSTECTOMY ERCP ESOPHAGOGASTRODUODENOSCOPY HAND SURGERY Allergies: Droperidol and Tramadol Social History: Social History Socioeconomic History Marital status: Single Spouse name: None Number of children: None Years of education: None Highest education level: None Occupational History None Tobacco Use Smoking status: Every Day Packs/day: 1.00 Years: 15.00 Total pack years: 15.00 Types: Cigarettes Smokeless tobacco: Never Vaping Use Vaping Use: Never used Substance and Sexual Activity Alcohol use: Not Currently Drug use: Yes Types: Marijuana Comment: a few times a month Sexual activity: Yes Other Topics Concern Occupational Exposure No Social History Narrative None Social Determinants of Health Financial Resource Strain: Not on file Food Insecurity: Not on file Transportation Needs: Not on file Physical Activity: Not on file Stress: Not on file Social Connections: Not on file Intimate Partner Violence: Not on file Housing Stability: Not on file Family History: Family History Problem Relation Name Age of Onset Hypertension Mother No Known Problems Father Relevent Data Reviewed: Andrzej: Reviewed, report # [id number] 08/24/22- Pregabalin 300 mg, Qty 60, Days 30 08/12/22- Tramadol 50 mg, Qty 45, Days 15 08/08/22- Oxycodone/acetaminophen 325mg/10mg, Qty 11, Days 2 Labs: Labs in last 18 hours CBC WBC 4.34 Hb 10.6 (L) Plt 186 Hct 33.3 (L) INR ??, PTT ?? BMP Na 139 Cl 101 BUN 3 (L) Glu 135 (H) K 4.0 Co2 27 Cr 0.76 Ca 8.9 iCa ?? Mg ??, Phos ?? LFT AST 33 (H) AlkPhos 90 T Prot 6.3 ALK 27 Bili 0.3 Alb ?? D.Bili ?? - UDS: Aminoclonazepam Date Value Ref Range Status 12/21/2021 581 (H) <20 ng/mL Final Alprazolam Date Value Ref Range Status 12/21/2021 <10 <10 ng/mL Final Alpha OH Alprazolam Date Value Ref Range Status 12/21/2021 <20 <20 ng/mL Final Alpha OH Midazolam Date Value Ref Range Status 12/21/2021 <20 <20 ng/mL Final Alpha OH Triazolam Date Value Ref Range Status 12/21/2021 <20 <20 ng/mL Final Benzoylecgonine Date Value Ref Range Status 12/21/2021 <50 <50 ng/mL Final Buprenorphine Date Value Ref Range Status 12/21/2021 <10 <10 ng/mL Final Butalbital Date Value Ref Range Status 12/21/2021 <50 <50 ng/mL Final Clonazepam Date Value Ref Range Status 12/21/2021 <10 <10 ng/mL Final Desmethyl Tramadol Date Value Ref Range Status 12/21/2021 <50 <50 ng/mL Final Fentanyl Date Value Ref Range Status 12/21/2021 <1 <1 ng/mL Final Hydrocodone Date Value Ref Range Status 12/21/2021 <50 <50 ng/mL Final Lorazepam Date Value Ref Range Status 12/21/2021 <20 <20 ng/mL Final Meperidine Date Value Ref Range Status 12/21/2021 <50 <50 ng/mL Final Morphine Date Value Ref Range Status 12/21/2021 <50 <50 ng/mL Final Methylphenidate Date Value Ref Range Status 12/21/2021 <50 <50 ng/mL Final Norfentanyl Date Value Ref Range Status 12/21/2021 <2 <2 ng/mL Final Normeperidine Date Value Ref Range Status 12/21/2021 <50 <50 ng/mL Final Nordiazepam Date Value Ref Range Status 12/21/2021 <20 <20 ng/mL Final Oxycodone Date Value Ref Range Status 12/21/2021 301 (H) <50 ng/mL Final Oxymorphone Date Value Ref Range Status 12/21/2021 <50 <50 ng/mL Final Oxazepam Date Value Ref Range Status 12/21/2021 <20 <20 ng/mL Final Phenobarbital Date Value Ref Range Status 12/21/2021 <50 <50 ng/mL Final Secobarbital Date Value Ref Range Status 12/21/2021 <50 <50 ng/mL Final Temazepam Date Value Ref Range Status 12/21/2021 <20 <20 ng/mL Final 9 Carboxy THC Date Value Ref Range Status 12/21/2021 <10 <10 ng/mL Final Tramadol Date Value Ref Range Status 12/21/2021 <50 <50 ng/mL Final Physical Exam: Physical Exam Vitals and nursing note reviewed. Constitutional: General: She is not in acute distress. Appearance: Normal appearance. HENT: Head: Normocephalic and atraumatic. Nose: No rhinorrhea. Mouth/Throat: Mouth: Mucous membranes are moist. Pharynx: Oropharynx is clear. Eyes: General: Right eye: No discharge. Left eye: No discharge. Conjunctiva/sclera: Conjunctivae normal. Pupils: Pupils are equal, round, and reactive to light. Pulmonary: Effort: Pulmonary effort is normal. No respiratory distress. Breath sounds: No stridor. Musculoskeletal: General: Normal range of motion. Cervical back: No rigidity. Skin: General: Skin is warm and dry. Neurological: Mental Status: She is alert and oriented to person, place, and time. Psychiatric: Mood and Affect: Mood normal. Behavior: Behavior normal. Visit Vitals BP (!) 153/105 Pulse 99 Temp 36.7 ??C (98.1 ??F) Resp 15 Ht 1.651 m (5' 5 ) Wt 113 kg (250 lb 3.6 oz) SpO2 98% BMI 41.64 kg/m?? OB Status Having periods Smoking Status Every Day BSA 2.29 m?? COWS: 1 Assessment: Rosibel Gayle is a 36 y.o. female with a PMHx significant for arthritis, anxiety, depression, fibromyalgia, GERD, HTN, and chronic pancreatitis who was admitted to for acute on chronic pancreatitis complicated by severe epigastric, abdominal pain, nausea and vomiting. [facility] team was consulted to speak with the patient regarding her use of opiates. #Opioid Use, does not meet criteria for OUD. - Patient to be referred to palliative/pain mgmt for acute pain control as she does not meet criteria for OUD. - Recommend HIV serology; HAV IgG/IgM; HBV surface antibody, core IgG/IgM, surface antigen; HCV serology and RNA PCR. If patient is HAV and/or HBV non- immune, recommend starting vaccination series - Recommend Syphilis IgG; GC/Chlamydia testing -- Harm/risk reduction counseling provided - Will need to be discharged with intranasal Naloxone - [facility] team to sign off. #Nicotine Dependence - Discussed smoking cessation with patient, counseling provided. Encouraged continued use of NRT during hospitalization. Monse Almeida APRN Addiction [facility] Education [facility] Total visit time was 45 minutes, with greater than 50% of time spent on coordination of care and counseling the patient on appropriate medication administration, the mechanism of action of medications, possible medication side effects, coping strategies, managing thoughts/urges/cravings, pain management, safer injection practices, overdose prevention education, naloxone administration, relapse prevention, and aftercare planning. * Progress Notes - Selin Collier CNA - 09/17/2022 7:05 AM EDT Subjective Brief H&P: Rosibel Gayle is a 36 y.o. year-old female who has a past medical history of Anxiety, Arthritis,Depression, Fibromyalgia, GERD (gastroesophageal reflux disease), Hypertension, Nicotine dependence, Obesity, and Pancreatitis who presents to [facility] ED due to abdominal pain with nausea and vomiting with concern for pancreatitis flare. Her past surgical history includes cholecystectomy,ERCP, Esophagogastroduodenoscopy, and hand surgery. Patient reports visiting [place] and perhaps eating bad food and alcoholic drinks. Patient reports that the pain progressively got worse and canbe as bad as 10/10 in intensity and stabbing in nature; pain worse with by mouth intake and movement mildly better only with pain medication. She reports that the pain is similar to previous pancreatitis attacks only this is 1 of the ???worst ones have had in a long time ???. Patient also endorses having nausea with emesis x2 yesterday and intermittent diarrhea. Patient reports 1 packet of tobacco per day for the past 15 years, and occasional Marijuana usage. Patient denies fever, hematemesis, hematochezia, cough, shortness of breath, or known sick contacts. Patient reports that she attemptedto take tramadol, Zofran, ibuprofen, and Tylenol at home with no relief. Given the persistent pain the patient presented to the ER. On arrival patient was tachycardic (heart rate 124), hypertensive (1 54/92), afebrile and with oxygen saturation greater than 92% on room air. Labs showed elevated lipase (696). In the ER patient received 1 L IV fluid, a few doses of morphine, 1 dose of Dilaudid, Zofran, and Phenergan. Patient to be admitted to Hospital Medicine for further workup and care. Today's Events: Patient pain not controlled, she was crying again when we entered the room. Patient complains of rash under her right breast but her pain/wound in her right leg is feeling better. She reports she hasnot had a bowel movement yet. Patient denies vomiting, chest pain, shortness of breath and headaches. Review of Systems Constitutional: Positive for appetite change and fatigue. Gastrointestinal: Positive for abdominal pain and nausea. Neurological: Positive for weakness. All other systems reviewed and are negative. Objective Physical Exam Vitals and nursing note reviewed. Constitutional: Appearance: Normal appearance. She is obese. HENT: Head: Normocephalic and atraumatic. Mouth/Throat: Mouth: Mucous membranes are moist. Pharynx: Oropharynx is clear. Cardiovascular: Rate and Rhythm: Normal rate and regular rhythm. Pulmonary: Effort: Pulmonary effort is normal. No respiratory distress. Breath sounds: Normal breath sounds. No stridor. No wheezing or rhonchi. Abdominal: General: Bowel sounds are increased. There is no distension. Palpations: Abdomen is soft. There is no mass. Tenderness: There is abdominal tenderness. Musculoskeletal: General: Normal range of motion. Cervical back: Normal range of motion. Comments: Wound at rt. Leg. Surrounding skin is red and tender to touch. Patient claims that leg pain is preventing her from walking normally today Skin: General: Skin is warm. Capillary Refill: Capillary refill takes less than 2 seconds. Findings: Lesion and rash present. Comments: Rt lower leg 2cm wound Red rash under right breast Neurological: Mental Status: She is alert and oriented to person, place, and time. Psychiatric: Mood and Affect: Mood normal. Behavior: Behavior normal. Thought Content: Thought content normal. Judgment: Judgment normal. Last Recorded Vitals Blood pressure (!) 153/105, pulse 99, temperature 36.7 ??C (98.1 ??F), resp. rate 15, height 1.651 m (5' 5 ), weight 113 kg (250 lb 3.6 oz), SpO2 98 %, not currently . Current Medications: amitriptyline, 25 mg, Oral, Nightly docusate sodium, 100 mg, Oral, BID enoxaparin, 40 mg, Subcutaneous, Daily nystatin, 1 Application, Topical, BID pancrelipase ([id number]), 2 capsule, Oral, TID with meals pantoprazole, 40 mg, Oral, BID polyethylene glycol, 17 g, Oral, Daily pregabalin, 300 mg, Oral, BID PRN medications: HYDROmorphone, hydrOXYzine pamoate, oxyCODONE OR oxyCODONE, pancrelipase ([id number]), prochlorperazine, [COMPLETED] Insert peripheral IV AND [COMPLETED] Saline lock IV AND sodium chloride AND sodium chloride Drug Allergies: Droperidol and Tramadol Assessment/Plan Principal Problem: Acute on chronic pancreatitis (CMS/HCC) Active Problems: Bipolar depression (CMS/HCC) Anxiety Fibromyalgia Epigastric pain GERD (gastroesophageal reflux disease) Obesity (BMI 35.0-39.9 without comorbidity) Chronic pain Hypertension Nicotine dependence Depression Rosibel Gayle is a 36 y.o. year-old female who has a past medical history of Anxiety, Arthritis,Depression, Fibromyalgia, GERD (gastroesophageal reflux disease), Hypertension, Nicotine dependence, Obesity, and Pancreatitis who presents to [facility] ED due to abdominal pain with nausea and vomiting with concern for pancreatitis flare. Patient is able to take in small sips and eating a few jello bites only, patient is now placed on a full liquid diet. Patient prefers Compazine so discontinued the Zofran. Addiction medicine was consulted due to the quantity of controlled substances being used in patient's treatment. Reducing Hydromorphone to Q6 to start weaning off IV pain management since pt. Is tolerating PO medications and food. Acute Problems: Acute on chronic pancreatitis complicated by severe epigastric abdominal pain, nausea, and vomiting - Flare likely due to poor diet and ETOH consumption while on vacation last week - Lipase 696 (09/13) - NPO for bowel rest - IVF for rehydration - Strict Is & Os with daily weights - Restart home creon when patient able to eat - Continue to monitor on telemetry with continuous pulse oxymetry for now, downgrade as appropriate -Patient is not on a full liquid diet. -Patient prefers Compazine for nausea. -Patient is given Miralax and docusate sodium (Colace) for constipation. -Reducing Hydromorphone: 1mg Q6 to start weaning off IV pain management since pt. Is tolerating PO medications and food. 2. Wound to right lower leg: Wound Care consult and gave recommendations for saline moistened Aquacel Ag daily, if area does not need to be opened or drained would recommend to add in santyl daily toarea of slough and cover with saline moistened Aquacel ag. Primary team has order for x ray to evaluate the area for abscess, sq air, fx: X Ray of Tibia Fibula: Soft tissue wound in the distal medial anterior lower leg. No dissecting gas. No findings of osteomyelitis. Stranding of subcutaneous fat is appreciated in the anterior and lateral lower leg. X-Ray results suggest patient could be evaluated for further treatment/ complications can be evaluated by PCP after hospital course. 3. History of opiate use disorder- currently on opioid pain medications for acute flare. Titrate down and off these medications as soon as possible. Addiction medicine was consulted due to the quantity of controlled substances being used. 4. [place] in the middle of red diffused rash located under the right breast. - Wound care recorded this finding 09/17/2022. Continue observation of the area to see if it improves or worsens. Chronic Medical Conditions: #) GERD- continue home Pantoprazole #) Chronic pain secondary to fibromyalgia - continue home lyrica #) Anxiety and Depression- continue home amitriptyline, patient reports she was recently put back on Lorazepam for anxiety; confirm and restart #) Nicotine Dependence - The patient uses cigarettes - I have offered NRT and smoking cessation counselling. Patient refuses at this time #) Severe Obesity - BMI: 39.94 - Complicates all aspects of care Cosigned by Kena Sanders DO at 09/17/2022 4:44 PM EDT Associated attestation - Kena Sanders DO - 09/17/2022 4:44 PM EDT I saw and evaluated the patient. I discussed the case with the medical/FITTING ROOM ASSOCIATE/PA student and agree withthe findings and plan as documented. I personally performed the Exam and Medical Decision Making. Patient tearful this morning on exam. She endorses ongoing pain. She has been using dilaudid Q3 hours. We did increase Oxy dose last night and she feels that this helps. She is tolerating PO. Diet advanced to full liquid. We discussed the the dilaudid is to be used for breakthrough pain only and if she is needing it for pain control then we need to increase her Oxy dose and add another agent. Patient does not like toradol, agreeable to tylenol. Abdomen TTP, heart sounds normal S1S2. [facility] did see her and patient discussed. Because she does not meet DSM-5 criteria for opioid use disorder they will not be able to treat her. Continue to ADAT, continue PRN oxy and scheduled tylenol. Dilaudid PRN Q 6. Electronically Signed by: Kena Sanders DO - 09/17/2022 - 4:43 PM Time Spent: I personally spent a total of 50 minutes on this encounter. This time includes face to face with patient, counseling and discussion and/or coordination of care. * Progress Notes - Selin Collier CNA - 09/16/2022 7:17 AM EDT Subjective Brief H&P: Rosibel Gayle is a 36 y.o. year-old female who has a past medical history of Anxiety, Arthritis,Depression, Fibromyalgia, GERD (gastroesophageal reflux disease), Hypertension, Nicotine dependence, Obesity, and Pancreatitis who presents to [facility] ED due to abdominal pain with nausea and vomiting with concern for pancreatitis flare. Her past surgical history includes cholecystectomy,ERCP, Esophagogastroduodenoscopy, and hand surgery. Patient reports visiting [place] and perhaps eating bad food and alcoholic drinks. Patient reports that the pain progressively got worse and canbe as bad as 10/10 in intensity and stabbing in nature; pain worse with by mouth intake and movement mildly better only with pain medication. She reports that the pain is similar to previous pancreatitis attacks only this is 1 of the ???worst ones have had in a long time ???. Patient also endorses having nausea with emesis x2 yesterday and intermittent diarrhea. Patient reports 1 packet of tobacco per day for the past 15 years, and occasional Marijuana usage. Patient denies fever, hematemesis, hematochezia, cough, shortness of breath, or known sick contacts. Patient reports that she attemptedto take tramadol, Zofran, ibuprofen, and Tylenol at home with no relief. Given the persistent pain the patient presented to the ER. On arrival patient was tachycardic (heart rate 124), hypertensive (1 54/92), afebrile and with oxygen saturation greater than 92% on room air. Labs showed elevated lipase (696). In the ER patient received 1 L IV fluid, a few doses of morphine, 1 dose of Dilaudid, Zofran, and Phenergan. Patient to be admitted to Hospital Medicine for further workup and care. Today's Events: Patient presents with increased pain but improvement in her right leg wound. She denies headache, blood in stools, vomiting, chest pain, and shortness of breath. Review of Systems Constitutional: Positive for appetite change and fatigue. Gastrointestinal: Positive for abdominal pain and nausea. Neurological: Positive for weakness. All other systems reviewed and are negative. Objective Physical Exam Vitals and nursing note reviewed. Constitutional: Appearance: Normal appearance. She is obese. HENT: Head: Normocephalic and atraumatic. Mouth/Throat: Mouth: Mucous membranes are moist. Pharynx: Oropharynx is clear. Cardiovascular: Rate and Rhythm: Normal rate and regular rhythm. Pulmonary: Effort: Pulmonary effort is normal. No respiratory distress. Breath sounds: Normal breath sounds. No stridor. No wheezing or rhonchi. Abdominal: General: Bowel sounds are increased. Palpations: Abdomen is soft. Tenderness: There is abdominal tenderness. Musculoskeletal: General: Normal range of motion. Cervical back: Normal range of motion. Comments: Wound at rt. Leg. Surrounding skin is red and tender to touch. Patient claims that leg pain is preventing her from walking normally today Skin: General: Skin is warm. Capillary Refill: Capillary refill takes less than 2 seconds. Findings: Lesion present. Comments: Rt lower leg Neurological: Mental Status: She is alert and oriented to person, place, and time. Psychiatric: Mood and Affect: Mood normal. Behavior: Behavior normal. Thought Content: Thought content normal. Judgment: Judgment normal. Last Recorded Vitals Blood pressure (!) 140/94, pulse 60, temperature 36.3 ??C (97.4 ??F), resp. rate 15, height 1.651 m(5' 5 ), weight 113 kg (249 lb 12.5 oz), SpO2 99 %, not currently . Current Medications: amitriptyline, 25 mg, Oral, Nightly docusate sodium, 100 mg, Oral, BID enoxaparin, 40 mg, Subcutaneous, Daily pantoprazole, 40 mg, Oral, BID polyethylene glycol, 17 g, Oral, Daily pregabalin, 300 mg, Oral, BID PRN medications: HYDROmorphone, hydrOXYzine pamoate, oxyCODONE OR oxyCODONE, prochlorperazine, [COMPLETED] Insert peripheral IV AND [COMPLETED] Saline lock IV AND sodium chloride AND sodium chloride Drug Allergies: Droperidol and Tramadol Assessment/Plan Principal Problem: Acute on chronic pancreatitis (CMS/HCC) Active Problems: Bipolar depression (CMS/HCC) Anxiety Fibromyalgia Epigastric pain GERD (gastroesophageal reflux disease) Obesity (BMI 35.0-39.9 without comorbidity) Chronic pain Hypertension Nicotine dependence Depression Rosibel Gayle is a 36 y.o. year-old female who has a past medical history of Anxiety, Arthritis,Depression, Fibromyalgia, GERD (gastroesophageal reflux disease), Hypertension, Nicotine dependence, Obesity, and Pancreatitis who presents to [facility] ED due to abdominal pain with nausea and vomiting with concern for pancreatitis flare. Patient is able to take in small sips and eating a few jello bites only. Patient prefers Compazine so discontinued the Zofran. Addiction medicine was consulted due to the quantity of controlled substances being used in patient's treatment. Acute Problems: Acute on chronic pancreatitis complicated by severe epigastric abdominal pain, nausea, and vomiting - Flare likely due to poor diet and ETOH consumption while on vacation last week - Lipase 696 (09/13) - NPO for bowel rest - IVF for rehydration - Oxycodone and dilaudid PNR for acute phase pain control, titrate back and off as quickly as possible. Oxycodone was increased to 10mg every 4 hours due to patient complaining of great pain. - Zofran and compazine PRN for nausea - Strict Is & Os with daily weights - Restart home creon when patient able to eat - Continue to monitor on telemetry with continuous pulse oxymetry for now, downgrade as appropriate -Patient is encouraged to start drinking fluids as much as she can tolerate them. -Patient prefers Compazine for nausea. -Patient is given Miralax and docusate sodium (Colace) for constipation. 2. Wound to right lower leg: Wound Care consult and gave recommendations for saline moistened Aquacel Ag daily, if area does not need to be opened or drained would recommend to add in santyl daily toarea of slough and cover with saline moistened Aquacel ag. Primary team has order for x ray to evaluate the area for abscess, sq air, fx: X Ray of Tibia Fibula: Soft tissue wound in the distal medial anterior lower leg. No dissecting gas. No findings of osteomyelitis. Stranding of subcutaneous fat is appreciated in the anterior and lateral lower leg. X-Ray results suggest patient could be evaluated for further treatment/ complications can be evaluated by PCP after hospital course. 3. History of opiate use disorder- currently on opioid pain medications for acute flare. Titrate down and off these medications as soon as possible. Addiction medicine was consulted due to the quantity of controlled substances being used. Chronic Medical Conditions: #) GERD- continue home Pantoprazole #) Chronic pain secondary to fibromyalgia - continue home lyrica #) Anxiety and Depression- continue home amitriptyline, patient reports she was recently put back on Lorazepam for anxiety; confirm and restart #) Nicotine Dependence - The patient uses cigarettes - I have offered NRT and smoking cessation counselling. Patient refuses at this time #) Severe Obesity - BMI: 39.94 - Complicates all aspects of care Cosigned by Kena Sanders DO at 09/16/2022 5:55 PM EDT Associated attestation - Kena Sanders DO - 09/16/2022 5:55 PM EDT I saw and evaluated the patient with the medical/FITTING ROOM ASSOCIATE/PA student. I discussed the case with the medical/FITTING ROOM ASSOCIATE/PA student and agree with the findings and plan as documented. I personally performed the Examand Medical Decision Making. Patient pain not controlled was in tears when we entered the room. Will increase Oxy to 10 vs 15mg until ACES is able to see her. They were consulted today. Labs ordered for the AM, will follow. Patient is currently tolerating PO - she is tolerating clears. Will ADAT. Electronically Signed by: Kena Sanders DO - 09/16/2022 - 5:55 PM * Care Plan - Suyapa Valdez RN - 09/16/2022 12:51 AM EDT Problem: Adult Inpatient Plan of Care Goal: Plan of Care Review Outcome: Ongoing, Progressing Goal: Patient-Specific Goal (Individualized) Outcome: Ongoing, Progressing Goal: Absence of Hospital-Acquired Illness or Injury Outcome: Ongoing, Progressing Goal: Optimal Comfort and Wellbeing Outcome: Ongoing, Progressing Goal: Readiness for Transition of Care Outcome: Ongoing, Progressing Problem: Pain Acute Goal: Optimal Pain Control and Function Outcome: Ongoing, Progressing Problem: Pancreatitis Goal: Fluid and Electrolyte Balance Outcome: Ongoing, Progressing Goal: Absence of Infection Signs and Symptoms Outcome: Ongoing, Progressing Goal: Optimal Nutrition Delivery Outcome: Ongoing, Progressing Goal: Optimal Pain Control and Function Outcome: Ongoing, Progressing * Progress Notes - Jarett Loya [place] - 09/15/2022 3:21 PM EDT Case Management Adult Initial Progress Note Rosibel Gayle 36 y.o. female CSN: [id number] Admission: 09/13/2022 11:18 PM Primary Problem: Acute on chronic pancreatitis (CMS/HCC) Pe Manager reviewed chart and spoke with patient to complete this Initial Case Management Assessment. PCP: Elmo Escobar MD Emergency Contact: Extended Emergency Contact Information Primary Emergency Contact: Asiya Flores Address: [address] [place] [address] [facility] Mobile Relation: Mother Preferred language: German Photographic Aide needed? No Insurance: Primary Visit Coverage Payer Plan Sponsor Code Group Number Group Name ANTH MEDICAID ANTH MEDICAID [id number] Primary Visit Coverage Subscriber Subscriber ID Subscriber Name Subscriber SSN Subscriber Address [id number] ROSIBEL GAYLE [place] [id number] [place] [address] Patient information: Primary Caregiver: Self Support System: Immediate family, Extended family, Friends Daily Living Activities: Functional Status: Independent Living Arrangements: Spouse/Significant other, Children Type of Residence: Private residence [address] [place] [address] Smoker in the Home?: Yes Current DME: Equipment Currently Used at Home: none Income Information: Income Source: Government aid Income/Expense Information: Income meets expenses Current Resources Utilized: Food Grant Housing Circumstances-Z Codes: Housing Circumstances (select all that apply): Low Income (101-300% Federal Poverty Guidlines) - Z596 Patient Referred to: Anticipated Discharge Date: 1-2 days Patient's Discharge Goal: Back home Assistance Available at Discharge: Family, friends Discharge Transport: Family/friend Follow Up Transport: Family/friend Home Health / Home Infusion / Outpatient Dialysis Services: Living Will/Advance Directive/Power of Mri Manager /Guardian: Have you reviewed your Advance Directive and is it valid for this stay?: No Advance Directive: Patient would not like information Information Provided on Healthcare Directives: No Pre-existing DNR/DNI Order: No Patient Requests Assistance: No Additional Comments: Jarett Loya * Progress Notes - Mariely Rider RN - 09/15/2022 1:58 PM EDT Images from the original note were not included. Wound Care Consult Visit Date: 09/15/2022 Patient Name: Rosibel Gayle Date of : 1985 Admit Date: 09/13/2022 Reason for Consult: wound to right lower leg Wound History: Per patient she bumped into a coffee table 7 years ago, her skin healed but remaineddiscolored. About 5 years ago she had the area biopsied and was negative. She notes the discoloration has continued to grow. A few weeks ago she scratched the area and there was a small scab. She hada bandaid on it when she [place]. She is tender to palpation with pain extending below the wound with slight erythema and is hot to touch. Primary team has order forx ray to evaluate the area for abscess, sq air, fx Placed recommendations for saline moistened Aquacel Ag daily, if area does not need to be opened ordrained would recommend to add in santyl daily to area of slough and cover with saline moistened Aquacel ag. Wound Assessment: Wound 09/14/22 Pretibial Right (Active) Date First Assessed/Time First Assessed: 09/14/22 0459 Present on Original Admission: Yes Location:Pretibial Wound Location Orientation: Right Assessments 09/15/2022 1:08 PM Wound Image Wound Assessment Yellow;Black;Red;Painful Janis-Wound Assessment Red Wound Length (cm) 1 cm (periwound chronic discoloration 8cmL x 5cmW) Wound Width (cm) 1 cm Wound Surface Area (cm^2) 1 cm^2 Non-staged Wound Description Full thickness Active Orders Date Order Priority Status Authorizing Provider 09/15/22 1168 Apply/Change Wound Dressing Routine Active Walt Medina MD - Dressing Type: Silver dressing - Silver Dressing: Aquacel Ag - Secondary Dressing Type: Other Dressings - Other: Other (Comment) - Other dressing (comment):: Right lower leg- clean-> apply saline moistened Aquacel Ag daily cut to fit the size of the wound -> apply allevyn to secure Mariely Rider RN 09/15/2022 1:58 PM * Consults - Lida Morales RD - 09/15/2022 9:13 AM EDT Adult Nutrition Evaluation Note Rosibel Gayle 36 y.o. female CSN: [id number] Room/Bed 413/956N Nutrition evaluation type: assessment Reason for evaluation: nurse consult Hospital course: 36 y/o F presented 09/13 due to abdominal pain with nausea and vomiting, concern for pancreatitis flare. Past medical/ surgical history: Past Medical History: Diagnosis Date Anxiety Arthritis Depression Fibromyalgia GERD (gastroesophageal reflux disease) Hypertension Nicotine dependence Obesity Pancreatitis Past Surgical History: Procedure Laterality Date CHOLECYSTECTOMY ERCP ESOPHAGOGASTRODUODENOSCOPY HAND SURGERY Social history: Additional comments: 09/15: Visited pt today. She endorses poor PO intake since Thursday (09/12) when she reports she ate junk food and consumed alcohol while celebrating her anniversary. She states that prior to this, she had been eating well, following a low fat diet. She reports right now she is only able to tolerate ice chips - even drinking the small amount of water in her cup makes her nauseous. Pt denies chewing or swallowing difficulties. Endorses current nausea. Has not had vomiting or diarrhea since Thursday. She endorse 40# unintentional weight gain over the past 6 months; prior UBW ~190#. States the only think she knows has changed which may be contributing to weight changes is a new medication she's taking. Vitals and Basic Assessment: BP: (!) 154/93 Temp: 36.3 ??C (97.4 ??F) Oxygen Therapy: None (Room air) Jo Coma Scale Score: 15 Scott Scale Score: 21 Last BM Date: 09/13/22 (per pt report I had diarrhea at home ) GI Symptoms: Nausea Edema: Generalized Skin: wound right pretibial Allergies: Reviewed, no known food allergies Medications: amitriptyline, 25 mg, Oral, Nightly enoxaparin, 40 mg, Subcutaneous, Daily pantoprazole, 40 mg, Oral, BID pregabalin, 300 mg, Oral, BID PRN medications: HYDROmorphone, hydrOXYzine pamoate, ondansetron, oxyCODONE OR oxyCODONE, prochlorperazine, [COMPLETED] Insert peripheral IV AND [COMPLETED] Saline lock IV AND sodium chloride AND sodium chloride Meds were reviewed: Yes Labs: Lab Results Component Value Date WBC 5.62 09/15/2022 HGB 10.5 (L) 09/15/2022 HCT 33.0 (L) 09/15/2022 MCV 84 09/15/2022 PLT 187 09/15/2022 Lab Results Component Value Date GLUCOSE 91 09/15/2022 CALCIUM 8.7 (L) 09/15/2022 NA 139 09/15/2022 K 4.3 09/15/2022 CO2 26 09/15/2022 CL 104 09/15/2022 BUN 6 (L) 09/15/2022 CREATININE 0.71 09/15/2022 PHOS 4.0 09/14/2022 MG 2.1 09/15/2022 HGBA1C 5.3 10/18/2020 Lab Results Component Value Date ALBUMIN 3.6 09/15/2022 Lab Results Component Value Date ALT 19 09/15/2022 AST 19 09/15/2022 ALKPHOS 85 09/15/2022 BILITOT 0.2 09/15/2022 Anthropometrics: Height: 165.1 cm (5' 5 ) Weight: 114 kg (252 lb 3.3 oz) BMI (Calculated): 41.97 Weight Evaluation: Extreme Obesity (BMI > 40) [place] Body Weight (kg): 56.8 Percent [place] Body Weight: 201 Adjusted Body Weight (kg): 71.1 Wt Readings from Last 10 Encounters: 09/15/22 114 kg (252 lb 3.3 oz) 08/08/22 112 kg (247 lb 12.8 oz) 07/24/22 112 kg (247 lb 12.8 oz) 07/11/22 110 kg (243 lb 9.7 oz) 06/23/22 108 kg (237 lb 10.5 oz) 06/19/22 110 kg (241 lb 10 oz) 06/14/22 108 kg (238 lb 8.6 oz) 06/11/22 104 kg (229 lb 4.5 oz) 05/22/22 103 kg (226 lb 10.1 oz) 03/22/22 103 kg (226 lb 6.6 oz) Estimated Needs: Kcal/ K-33 Kcal Provided: 5201-5472 Kcal Needs Based On: Adjusted weight (71.1 kg) Gm Protein/ Kg : 1.2-1.5 Protein Provided: 85-107 Protein Needs Based On: Adjusted weight (71.1 kg) Fluid Provided: Per MD team Current Nutrition Intake: Diet Order: NPO Diet Experience and Nutrition History: Diet Education Provided: Will monitor Pertinent home medications: Vitamin C, Vitamin D3, Vitamin B12, Creon, Protonix Orthodox needs: Nutrition Focused Physical Exam: Physical exam performed on (date): 09/15/22 Temples (muscles): None Clavicle (muscle): None Shoulder (muscle): None Interosseous (muscle): None Orbital (fat): None Triceps (fat): None Energy Intake: Eating well prior to acute flare of pancreatitis Assessment of Malnutrition: Malnutrition Identified: No Nutrition Problem: Increased nutrient needs (kcal, pro) related to increased biological demand as evidenced by acute on chronic pancreatitis. Status of Nutrition Diagnosis: New Nutrition Interventions and Recommendations: - Continue NPO as medically appropriate. - If/when pt is PO appropriate would initiate clear liquid diet and advance as tolerated to low fat. - If pt unable to tolerate diet advancement, would rec alternative means of nutrition. - Rec obtaining weight 1x/week. Nutrition Monitoring and Goals: - Will monitor PO intake, weight status, lab results, GI tolerance, and skin integrity. - Pt will have adequate source of nutrition by follow up. - Pt will maintain weight this admission. Acuity Level: [address], LD * Progress Notes - Selin Collier CNA - 09/15/2022 7:17 AM EDT Subjective Brief H&P: Rosibel Gayle is a 36 y.o. year-old female who has a past medical history of Anxiety, Arthritis,Depression, Fibromyalgia, GERD (gastroesophageal reflux disease), Hypertension, Nicotine dependence, Obesity, and Pancreatitis who presents to [facility] ED due to abdominal pain with nausea and vomiting with concern for pancreatitis flare. Her past surgical history includes cholecystectomy,ERCP, Esophagogastroduodenoscopy, and hand surgery. Patient reports visiting [place] and perhaps eating bad food and alcoholic drinks. Patient reports that the pain progressively got worse and canbe as bad as 10/10 in intensity and stabbing in nature; pain worse with by mouth intake and movement mildly better only with pain medication. She reports that the pain is similar to previous pancreatitis attacks only this is 1 of the ???worst ones have had in a long time ???. Patient also endorses having nausea with emesis x2 yesterday and intermittent diarrhea. Patient reports 1 packet of tobacco per day for the past 15 years, and occasional Marijuana usage. Patient denies fever, hematemesis, hematochezia, cough, shortness of breath, or known sick contacts. Patient reports that she attemptedto take tramadol, Zofran, ibuprofen, and Tylenol at home with no relief. Given the persistent pain the patient presented to the ER. On arrival patient was tachycardic (heart rate 124), hypertensive (1 54/92), afebrile and with oxygen saturation greater than 92% on room air. Labs showed elevated lipase (696). In the ER patient received 1 L IV fluid, a few doses of morphine, 1 dose of Dilaudid, Zofran, and Phenergan. Patient to be admitted to Hospital Medicine for further workup and care. Today's Events: Patient complains of increased abdominal pain and nausea. She also complains of redness and tenderness on skin around wound on her right leg. Patient denies vomiting, shortness of breath, chest pain,and headache. Review of Systems Constitutional: Positive for appetite change and fatigue. Gastrointestinal: Positive for abdominal pain and nausea. Musculoskeletal: Positive for gait problem. Neurological: Positive for weakness. All other systems reviewed and are negative. Objective Physical Exam Vitals and nursing note reviewed. Constitutional: Appearance: Normal appearance. She is obese. HENT: Head: Normocephalic and atraumatic. Cardiovascular: Rate and Rhythm: Normal rate and regular rhythm. Pulmonary: Effort: Pulmonary effort is normal. No respiratory distress. Breath sounds: Normal breath sounds. No stridor. No wheezing or rhonchi. Abdominal: General: Bowel sounds are increased. Palpations: Abdomen is soft. Tenderness: There is abdominal tenderness. Musculoskeletal: General: Normal range of motion. Cervical back: Normal range of motion. Comments: Wound at rt. Leg. Surrounding skin is red and tender to touch. Patient claims that leg pain is preventing her from walking normally today Skin: General: Skin is warm. Capillary Refill: Capillary refill takes less than 2 seconds. Findings: Lesion present. Comments: Rt lower leg Neurological: Mental Status: She is alert and oriented to person, place, and time. Psychiatric: Mood and Affect: Mood normal. Behavior: Behavior normal. Thought Content: Thought content normal. Judgment: Judgment normal. Last Recorded Vitals Blood pressure (!) 154/93, pulse 85, temperature 36.3 ??C (97.4 ??F), resp. rate 18, height 1.651 m(5' 5 ), weight 114 kg (252 lb 3.3 oz), SpO2 98 %, not currently . Current Medications: amitriptyline, 25 mg, Oral, Nightly enoxaparin, 40 mg, Subcutaneous, Daily pantoprazole, 40 mg, Oral, BID pregabalin, 300 mg, Oral, BID PRN medications: HYDROmorphone, hydrOXYzine pamoate, ondansetron, oxyCODONE OR oxyCODONE, prochlorperazine, [COMPLETED] Insert peripheral IV AND [COMPLETED] Saline lock IV AND sodium chloride AND sodium chloride Drug Allergies: Droperidol and Tramadol Assessment/Plan Principal Problem: Acute on chronic pancreatitis (CMS/HCC) Active Problems: Bipolar depression (CMS/HCC) Anxiety Fibromyalgia Epigastric pain GERD (gastroesophageal reflux disease) Obesity (BMI 35.0-39.9 without comorbidity) Chronic pain Hypertension Nicotine dependence Depression Rosibel Gayle is a 36 y.o. year-old female who has a past medical history of Anxiety, Arthritis,Depression, Fibromyalgia, GERD (gastroesophageal reflux disease), Hypertension, Nicotine dependence, Obesity, and Pancreatitis who presents to [facility] ED due to abdominal pain with nausea and vomiting with concern for pancreatitis flare. Patient is encouraged to start drinking fluids as much as she can tolerate them. Oxycodone was increased to 10mg every 4 hours due to patient complaining of great pain. Patient prefers Compazine instead of Zofran. Acute on chronic pancreatitis complicated by severe epigastric abdominal pain, nausea, and vomiting - Flare likely due to poor diet and ETOH consumption while on vacation last week - Lipase 696 (09/13) - NPO for bowel rest - IVF for rehydration - Oxycodone and dilaudid PNR for acute phase pain control, titrate back and off as quickly as possible. Oxycodone was increased to 10mg every 4 hours due to patient complaining of great pain. - Zofran and compazine PRN for nausea - Strict Is & Os with daily weights - Restart home creon when patient able to eat - Continue to monitor on telemetry with continuous pulse oxymetry for now, downgrade as appropriate -Patient is encouraged to start drinking fluids as much as she can tolerate them. -Patient prefers Compazine instead of Zofran Chronic Medical Conditions: #) GERD- continue home Pantoprazole #) Chronic pain secondary to fibromyalgia - continue home lyrica #) Anxiety and Depression- continue home amitriptyline, patient reports she was recently put back on Lorazepam for anxiety; confirm and restart #) History of opiate use disorder- currently on opioid pain medications for acute flare. Titrate down and off these medications as soon as possible #) Nicotine Dependence - The patient uses cigarettes - I have offered NRT and smoking cessation counselling. Patient refuses at this time #) Severe Obesity - BMI: 39.94 - Complicates all aspects of care Cosigned by Walt Medina MD at 09/15/2022 4:29 PM EDT Associated attestation - Walt Medina MD - 09/15/2022 4:29 PM EDT I saw and evaluated the patient with the medical/FITTING ROOM ASSOCIATE/PA student. I discussed the case with the medical/FITTING ROOM ASSOCIATE/PA student and agree with the findings and plan as documented. I personally performed the Examand Medical Decision Making. Ms Gayle was admittetd yesterday with abdominal pain consistent with acute on chronic pancreatitis. Her pain is marginally improved. Able to take small sips of clears without worsening. Larger amounts provoke her abdominal pain. Will continue with LR through at least tomorrow. Continue oxycodone and dilaudid PRN. Advance diet as tolerated. Currently not tolerating clears very well. Follow CBC and CMP in AM. * Care Plan - Myrna Carr - 09/15/2022 6:02 AM EDT Problem: Adult Inpatient Plan of Care Goal: Absence of Hospital-Acquired Illness or Injury Outcome: Ongoing, Progressing Problem: Adult Inpatient Plan of Care Goal: Optimal Comfort and Wellbeing Outcome: Ongoing, Progressing * Nursing Note - Myra Moody RN - 09/14/2022 6:45 PM EDT Primary RN has spoken to the patient multiple times today about her pain regimen not being sufficient for her needs. Primary RN spoke with Dr Walt Medina who also spoke with the patient and explained she is receiving the ordered protocol at the moment. The patient was educated several times about this issue with her pain medications. Will continue to monitor. * Consults - Alan Prajapati RN - 09/14/2022 10:59 AM EDTAssociated Order(s): IP CONSULT TO ADULT VASCULAR ACCESS TEAM PIV obtained by staff order to be d/c * Consults - Torsten Morales - 09/14/2022 10:55 AM EDT Pastoral Care Note Referral From: Certified Physical Therapist Assistant initiated Pastoral Care Provided For: Patient Certified Physical Therapist Assistant visited with patient for support with presence and empathetic listening as patient shared about her chronic health issues and about her family. Patient Profile: Consult Reasons: Initial visit Spiritual Assessment: Support Systems/ Spiritual Resources: Family, Lara Spiritual Needs: Spiritual support, Emotional support Spiritual Issues: Chronic pain/ illness Interventions: Interventions Provided: Spiritual support, Life review, Emotional support Pastoral Care Outcomes: Patient Outcomes: Is knowledgeable about [employer], Expresses ongoing struggle * Care Plan - Myra Moody RN - 09/14/2022 8:30 AM EDT Problem: Adult Inpatient Plan of Care Goal: Plan of Care Review Outcome: Ongoing, Progressing Flowsheets (Taken 09/14/2022 0830) Progress: no change Plan of Care Reviewed With: patient Goal: Patient-Specific Goal (Individualized) Outcome: Ongoing, Progressing Goal: Absence of Hospital-Acquired Illness or Injury Outcome: Ongoing, Progressing Goal: Optimal Comfort and Wellbeing Outcome: Ongoing, Progressing Goal: Readiness for Transition of Care Outcome: Ongoing, Progressing * H&P - Leny Tee APRN - 09/14/2022 4:08 AM EDTAssociated Order(s): Consult to [facility] Images from the original note were not included. Consult to [facility] Consult performed by: Leny Tee APRN Consult ordered by: Lester Meredith MD Reason for consult: admission for medical management [facility] History and Physical Chief Complaint: Abdominal pain with nausea and vomiting History of Present Illness: Rosibel Gayle is a 36 y.o. year-old female who has a past medical history of Anxiety, Arthritis,Depression, Fibromyalgia, GERD (gastroesophageal reflux disease), Hypertension, Nicotine dependence, Obesity, and Pancreatitis who presents to [facility] ED due to abdominal pain with nausea and vomiting with concern for pancreatitis flare. Patient reports that she went on vacation for her anniversary last week camping and [place] where she ate ???bad food??? and had a few [employer] alcoholic beverages. She reports shortly after consuming alcohol she began to experience abdominal pain. Patient reports that the pain progressively got worse and can be as bad as 10/10 in intensity and stabbing in nature; pain worse with by mouth intake and movement mildly better only with pain medication. She reports that the pain is similar to previous pancreatitis attacks only this is 1 of the ???worst ones have had in a long time ???. Patient also endorses having nausea with emesis x2 yesterday and intermittent diarrhea. Patient denies fever, hematemesis, hematochezia, cough, shortness of breath, or known sick contacts. Patient reports that she attempted to take tramadol, Zofran, ibuprofen, and Tylenol at home with no relief. Given the persistent pain the patient presented to the ER. Onarrival patient was tachycardic (heart rate 124), hypertensive (154/92), afebrile and with oxygen sa turation greater than 92% on room air. Labs showed elevated lipase (696). In the ER patient received 1 L IV fluid, a few doses of morphine, 1 dose of Dilaudid, Zofran, and Phenergan. Patient to be admitted to Hospital Medicine for further workup and care. Review of Systems: Review of [...] disease) Hypertension Nicotine dependence Obesity Pancreatitis Surgical History: Past Surgical History: Procedure Laterality Date CHOLECYSTECTOMY ERCP ESOPHAGOGASTRODUODENOSCOPY HAND SURGERY Family History: Family History Problem Relation Name Age of Onset Hypertension Mother No Known Problems Father Social History: Living: [place] [id number] with her mother, her significant other, and her 3 children Marital Status: In a stable long-term relationship, but not Alcohol Use: Reports that she had a few [employer] beverages while on vacation, last drink 09/10. Reports that she usually does not drink to trigger pancreatitis Recreational Drug Use: reports current drug use. Drug: Marijuana. Tobacco Use Smoking Status Every Day Packs/day: 1.00 Years: 15.00 Total pack years: 15.00 Types: Cigarettes Smokeless Tobacco Never Vaping Use Vaping Use: Never used Travel History: Relevant Travel History: Travel Screening Question Response In the last 10 days, have you been in contact with someone who was confirmed or suspected to have Coronavirus/COVID-19? -- Have you had a COVID-19 viral test in the last 10 days? -- Do you have any of the following new or worsening symptoms? -- Have you traveled internationally or domestically in the last month? No Travel History Travel since 08/15/22 No documented travel since 08/15/22 Allergies: Droperidol and Tramadol Medications: Current Facility-Administered Medications: amitriptyline (Elavil) tablet 25 mg, 25 mg, Oral, Nightly, Leny Tee APRN enoxaparin (Lovenox) syringe 40 mg, 40 mg, Subcutaneous, Daily, Leny Tee APRN HYDROmorphone (Dilaudid) injection 0.5 mg, 0.5 mg, Intravenous, q3h PRN, Leny Tee, ESTEBAN lactated Ringer's infusion, 100 mL/hr, Intravenous, Continuous, Leny Tee APRN ondansetron (Zofran) injection 4 mg, 4 mg, Intravenous, q6h PRN, Leny Tee, ESTEBAN oxyCODONE (Roxicodone) immediate release tablet 5 mg, 5 mg, Oral, q6h PRN OR oxyCODONE (Roxicodone) immediate release tablet 10 mg, 10 mg, Oral, q6h PRN, Leny Tee, ESTEBAN, 10 mg at 09/14/22 0405 pantoprazole (Protonix) EC tablet 40 mg, 40 mg, Oral, BID, Leny Tee APRN pregabalin (Lyrica) capsule 300 mg, 300 mg, Oral, BID, Leny Tee, ESTEBAN prochlorperazine (Compazine) injection 2.5 mg, 2.5 mg, Intravenous, q6h PRN, Leny Tee APRN [COMPLETED] Insert peripheral IV, , , Once AND [COMPLETED] Saline lock IV, , , Once AND sodium chloride 0.9 % flush 10 mL, 10 mL, Intravenous, q8h PRN AND sodium chloride 0.9 % flush 10 mL, 10 mL, Intravenous, PRN, Leny Tee, ESTEBAN Current Outpatient Medications: amitriptyline (Elavil) 25 MG tablet, Take 1 tablet (25 mg) by mouth every night., Disp: 30 tablet, Rfl: 11 pantoprazole (Protonix) 40 MG EC tablet, Take 1 tablet (40 mg) by mouth 2 (two) times a day. Do notcrush, chew, or split., Disp: , Rfl: pregabalin (Lyrica) 300 MG capsule, Take 1 capsule (300 mg) by mouth 2 (two) times a day., Disp: , Rfl: promethazine (Phenergan) 25 MG tablet, Take 1 tablet (25 mg) by mouth every 8 (eight) hours if needed for nausea or vomiting for up to 11 doses., Disp: 11 tablet, Rfl: 0 Alum & Mag Hydroxide-Simeth (ANTACID LIQUID PO), Take 20 mL by mouth every night., Disp: , Rfl: diphenhydrAMINE (BENADryl) 50 MG tablet, Take 50 mg by mouth at night if needed for itching. (Patient not taking: Reported on 09/14/2022), Disp: , Rfl: hydrOXYzine pamoate (Vistaril) 50 MG capsule, Take 1 capsule (50 mg) by mouth every 6 (six) hours if needed for anxiety for up to 10 days. (Patient not taking: Reported on 09/14/2022), Disp: 30 capsule, Rfl: 0 ibuprofen 200 MG tablet, Take 200 mg by mouth every 6 (six) hours if needed for mild pain., Disp: ,Rfl: naloxone (Narcan) 4 mg/0.1 mL nasal spray, 1. Give 1 spray in nostril for no/slow breathing or cannot wake after opioid use 2. Call 911 3. Repeat in other nostril if symptoms continue Use, Disp: 1 each, Rfl: 0 Vital Signs: Visit Vitals BP (!) 132/92 (BP Location: Right arm, Patient Position: Lying) Pulse 79 Temp 36.8 ??C (98.2 ??F) (Oral) Resp 16 Ht 1.651 m (5' 5 ) Wt 109 kg (240 lb) SpO2 95% BMI 39.94 kg/m?? OB Status Having periods Smoking Status Every Day BSA 2.24 m?? Physical Exam: General: well developed, well-nourished female who presents in mild distress secondary topain Physical Exam Vitals reviewed. Constitutional: General: She is not in acute distress. Appearance: Normal appearance. She is not ill-appearing or toxic-appearing. HENT: [...] There is abdominal tenderness. Musculoskeletal: General: No swelling, tenderness or deformity. [...] Motor: No weakness. Coordination: Coordination normal. Psychiatric: Mood and Affect: Mood is anxious. Affect is tearful. Behavior: Behavior normal. Judgment: Judgment normal. Labs (in last 24 hours): CBC: Lab Results Component Value Date WBC 7.60 09/13/2022 RBC 4.60 09/13/2022 HGB 12.3 09/13/2022 HCT 37.6 09/13/2022 PLT 264 09/13/2022 MCV 82 09/13/2022 MCH 26.7 09/13/2022 MCHC 32.7 09/13/2022 RDW 14.6 (H) 09/13/2022 NRBC 0.0 09/13/2022 Differential: Lab Results Component Value Date WBC 7.60 09/13/2022 NEUTOPHILPCT 53.0 09/13/2022 LYMPHOPCT 37.0 09/13/2022 MONOPCT 6.0 09/13/2022 EOSPCT 2.0 09/13/2022 Coagulation: No results found for: INR , PT , PTT , CLFGN Renal: Lab Results Component Value Date NA 136 09/13/2022 K 3.8 09/13/2022 CL 104 09/13/2022 CO2 18 (L) 09/13/2022 BUN 10 09/13/2022 CREATININE 0.62 09/13/2022 GLUCOSE 91 09/13/2022 CALCIUM 9.0 09/13/2022 Liver: Lab Results Component Value Date AST 19 09/13/2022 ALT 23 09/13/2022 BILITOT <0.2 (L) 09/13/2022 Glucose: No results found for: PGLU Lab Results Component Value Date HGBA1C 5.3 10/18/2020 Microbiology: Results No results found for the last 48 hours. Imaging (in last 24 hours): No imaging this admission to date Assessment and plan: Rosibel Gayle is a 36 y.o. year-old female who has a past medical history of Anxiety, Arthritis,Depression, Fibromyalgia, GERD (gastroesophageal reflux disease), Hypertension, Nicotine dependence, Obesity, and Pancreatitis who presents to [facility] ED due to abdominal pain with nausea and vomiting with concern for pancreatitis flare. Acute on chronic pancreatitis complicated by severe epigastric abdominal pain, nausea, and vomiting - Flare likely due to poor diet and ETOH consumption while on vacation last week - Lipase 696 - NPO for bowel rest - IVF for rehydration - Oxycodone and dilaudid PNR for acute phase pain control, titrate back and off as quickly as possible - Zofran and compazine PRN for nausea - Strict Is & Os with daily weights - Restart home creon when patient able to eat - Continue to monitor on telemetry with continuous pulse oxymetry for now, downgrade as appropriate Chronic Medical Conditions: #) GERD- continue home PPI #) Chronic pain secondary to fibromyalgia - continue home lyrica #) Anxiety and Depression- continue home amitriptyline, patient reports she was recently put back on Lorazepam for anxiety; confirm and restart #) History of opiate use disorder- currently on opioid pain medications for acute flare. Titrate down and off these medications as soon as possible #) Nicotine Dependence - The patient uses cigarettes - I have offered NRT and smoking cessation counselling. Patient refuses at this time #) Severe Obesity - BMI: 39.94 - Complicates all aspects of care Fluids: LR @ 100 ml/hr x 10 hrs Electrolytes: Continue to monitor and replace as appropriate Diet: NPO diet NPO except: Sips with meds DVT prophylaxis: SCDs + Lovenox prophylaxis Code status: Full Code Leny Tee APRN * ED Provider Notes - Lester Meredith MD - 09/13/2022 10:56 PM EDT Images from the original note were not included. - HPI Chief Complaint Patient presents with Pancreatitis Rosibel Gayle is a 36 y.o. female with a past medical history of pancreatitis, gastritis, HTN, GERD, fibromyalgia, arthritis, depression, and anxiety who presents today via private vehicle with pancreatitis flare up. The patient c/o abdominal pain described as stabbing in nature that radiates toher back, nausea, two episodes of vomiting, and trouble sleeping onset one day ago. She notes her symptoms are similar to past pancreatitis flare ups. The patient reports she was recently on [place]where she ate bad food and drank [place] alcoholic beverages. She endorses taking Zofran, ibuprofen, tylenol, and methocarbamol without relief. The patient documents she is allergic to tramadol, with it inducing panic attacks and itchy skin, but her doctor prescribes her tramadol 50 mg every 8 hours. She reports she recently ran out of the prescription. Secondary to the flare up, she endorses panic attacks. The patient denies fever, chills, chest pain, and cough. 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 by: Patient interpreter deaf used: No No data recorded Patient History [...] Use Topics Alcohol use: Not Currently Comment: Alcoholic Drinks/day: Minimum alcohol consumption Drug use: Yes Frequency: 4.0 times per week Types: Marijuana Comment: daily use Immunization History Immunization History: not reviewed Allergies: Allergies Allergen Reactions Droperidol Other Experienced an acute dystonic reaction treated with diphenhydramine Tramadol Dizziness and Rash Review of Systems Review of Systems Constitutional: Negative for chills and fever. Respiratory: Negative for cough. Cardiovascular: Negative for chest pain. Gastrointestinal: Positive for abdominal pain, nausea and vomiting. Musculoskeletal: Positive for back pain. Psychiatric/Behavioral: Positive for sleep disturbance. The patient is nervous/anxious. All other systems reviewed and are negative. Physical Exam ED Triage Vitals [09/13/22 2316] Temp Heart Rate Resp BP 36.9 ??C (98.4 ??F) (!) 124 24 (!) 154/92 SpO2 Temp Source Heart Rate Source Patient Position 96 % Oral Monitor Sitting BP Location FiO2 [...] Course & MDM Clinical Impressions as of 09/14/22213 Acute on chronic pancreatitis (CMS/HCC) Medical Decision Making 36 yo F w/ hx of chronic pancreatitis who presents with epigastic abd pain. Ddx includes acute pancreatitis, chronic pancreatitis, pseudocyst, necrotizing pancreatitis. Pt had alcohol and bad food last week. Not responding to tramadol at home. Given IVF bolus, iv morphine x2 doses, zofran, and promethazine IV without improvement in symptoms. Labs notable for normal wbc, normal bili, elevated lipase. Symptoms not controlled with this. Had an interactive discussion with IM who admitted for further management. Date/Time: 09/14/2022/2:14 AM Entered by Dominga Montoya, acting as scribe for Dr. Meredith. Attending Attestation: The documentation was recorded by Dominga Montoya, acting as scribe in my presence at the time of the encounter and accurately reflects the service I personally performed. ED Prescriptions None Disposition Admit Sign Off Checklist Clinical Impression: Complete ED Disposition: Complete - Lester Meredith MD 09/14/22213 * ED Triage Notes - Abigail Dial RN - 09/13/2022 10:56 PM EDT Pt states she has been having a pancreatitis flare for 2 days. documented in this encounter Plan of Treatment Not on file documented as of this encounter Procedures Procedure Name Priority Date/Time Associated Diagnosis Comments LEGIONELLA PNEUMOPHILIA URINARY ANTIGEN Routine 09/20/2022 3:40 PM EDT SARS-COV-2, FLU A, FLU B, AND RSV Routine 09/19/2022 11:35 AM EDT METHICILLIN RESISTANT STAPHYLOCOCCUS AUREUS (MRSA) CULTURE Routine 09/19/2022 11:[address] ANGIO PULMONARY EMBOLISM Routine 09/19/2022 5:[address] ABDOMEN PELVIS W IV CONTRAST Routine 09/19/2022 5:03 AM EDT D DIMER, QUANTITATIVE Routine 09/19/2022 4:04 AM EDT BLOOD CULTURE (AEROBIC/ANAEROBIC SET) Routine 09/19/2022 4:04 AM EDT BLOOD CULTURE (AEROBIC/ANAEROBIC SET) Routine 09/19/2022 4:04 AM EDT CBC W/O DIFFERENTIAL Pending Discharge 09/19/2022 4:04 AM EDT RENAL FUNCTION PANEL, PLASMA Pending Discharge 09/19/2022 4:04 AM EDT INSERT PERIPHERAL IV Routine 09/19/2022 1:06 AM EDT ECG ADULT Routine 09/18/2022 4:56 PM EDT SARS-COV-2, FLU A, FLU B, AND RSV Pending Discharge 09/18/2022 12:35 PM EDT NASOPHARYNGEAL RESPIRATORY PANEL Add-On 09/18/2022 12:35 PM EDT OXYCODONE CONFIRMATION,URINE STAT 09/18/2022 12:15 PM EDT DRUG ABUSE SCREEN, URINE Pending Discharge 09/18/2022 12:15 PM EDT THC URINE CONFIRM STAT 09/18/2022 12: 15 PM EDT URINE CULTURE Pending Discharge 09/18/2022 12:15 PM EDT XR ABDOMEN 1 VIEW Routine 09/18/2022 9:3 1 AM EDT CBC W/O DIFFERENTIAL Routine 09/17/2022 3:36 AM EDT COMPREHENSIVE METABOLIC PANEL, PLASMA Routine 09/17/2022 3:36 AM EDT POCT GLUCOSE METER UNSOLICITED RESULTS Routine 09/15/2022 7:04 PM EDT CBC W/O DIFFERENTIAL Routine 09/15/2022 5:59 PM EDT TRIGLYCERIDES, PLASMA Add-On 09/15/2022 5:59 PM EDT COMPREHENSIVE METABOLIC PANEL, PLASMA Routine 09/15/2022 5:59 PM EDT XR TIBIA FIBULA RIGHT 2+ VIEWS Routine 09/15/2022 2:12 PM EDT POCT GLUCOSE METER UNSOLICITED RESULTS Routine 09/15/2022 12:06 PM EDT CBC WITH AUTO DIFFERENTIAL Routine 09/15/2022 10:42 AM EDT MAGNESIUM, PLASMA Routine 09/15/2022 10: 42 AM EDT COMPREHENSIVE METABOLIC PANEL, PLASMA Routine 09/15/2022 10:42 AM EDT POCT GLUCOSE METER UNSOLICITED RESULTS Routine 09/15/2022 6:18 AM EDT POCT GLUCOSE METER UNSOLICITED RESULTS Routine 09/14/2022 10:32 PM EDT POCT GLUCOSE METER UNSOLICITED RESULTS Routine 09/14/2022 6:14 PM EDT POCT GLUCOSE METER UNSOLICITED RESULTS Routine 09/14/2022 1:10 PM EDT POCT GLUCOSE METER UNSOLICITED RESULTS Routine 09/14/2022 6:03 AM EDT WOUND OSTOMY EVAL AND TREAT Routine 09/14/2022 5:45 AM EDT CBC W/O DIFFERENTIAL Routine 09/14/2022 5:07 AM EDT PHOSPHORUS, PLASMA Routine 09/14/2022 5: 07 AM EDT MAGNESIUM, PLASMA Routine 09/14/2022 5:0 7 AM EDT BASIC METABOLIC PANEL, PLASMA Routine 09/14/2022 5:07 AM EDT CBC WITH AUTO DIFFERENTIAL STAT 09/13/2022 11:55 PM EDT TEST QUALITATIVE PLASMA STAT 09/13/2022 11:55 PM EDT LIPASE, PLASMA STAT 09/13/2022 11:55 PM EDT COMPREHENSIVE METABOLIC PANEL, PLASMA STAT 09/13/2022 11:55 PM EDT documented in this encounter Results * Legionella pneumophilia Urinary Antigen (09/20/2022 3:40 PM EDT) [facility] Legionella pneumophila serogroup 1 Antigen Result (Urine) Negative Negative 09/21/2022 1:01 PM EDT [facility] Urine Urine specimen obtained by clean catch procedure / Unknown Non-blood Collection / Unknown 09/20/2022 3:40 PM EDT 09/20/2022 3:51 PM EDT Kena Sanders LAB MICROBIOLOGY - GENER AL ORDERABLES Final Result [facility] [address] [place] [address] * SARS-CoV-2, Flu A, Flu B, and RSV (09/19/2022 11:35 AM EDT) [facility] SARS CoV-2/COVID-19 RNA PCR Result Not Detected Not Detected 09/19/2022 4:20 PM EDT [facility] Influenza A Virus PCR Result Not Detected Not Detected 09/19/2022 4:20 PM EDT [facility] Influenza B Virus PCR Result Not Detected Not Detected 09/19/2022 4:20 PM EDT [facility] Respiratory Syncytial Virus (RSV) PCR Result Not Detected Not Detected 09/19/2022 4:20 PM EDT [facility] Swab Nasopharyngeal structure / Unknown Non-blood Collection / Unknown 09/19/2022 11:35 AM EDT 09/19/2022 11:58 AM EDT Narrative [facility] - 09/19/2022 4:20 PM EDT This assay is for in vitro diagnostic use under FDA emergency use authorization only. Negative results do not preclude infection with the SARS CoV-2 virus and should not be the sole basis of a patient treatment/management or public health decision. Follow up testing should be performed according to the current CDC recommendations. This test was performed using the [facility] Alinity m SARS CoV-2 assay, a PCR-based method. The limit of detection (LoD) for this assay is 100 copies/mL. Use of Alinity m SARS CoV-2 assay in an asymptomatic screening population is intended to be used as part of an infection control plan, that may include additional preventative measures such a predefined serial testing plan or directed testing of high-risk individuals. Negative results should be considered presumptive and do not preclude current or future infection obtained through community transmission or other exposures. Negative results must be considered in the context of an individual's recent exposures, history, presence of clinical signs and symptoms consistent with COVID-19. [facility] Hospital[facility]ena Gio DO LAB MICROBIOLOGY - GENER AL ORDERABLES Final Result Performing Organization Address City/[facility] Co de Phone Number [facility] [address] [place] [address] * Methicillin Resistant Staphylococcus aureus (MRSA) Culture (09/19/2022 11:35 AM EDT) Culture No Methicillin-Resist ant Staphylococcus aureus isolated at 48 hours 09/21/2022 8:12 AM EDT [facility] Swab (Nares and Janis Rectal) Non-blood Collection / Unknown 09/19/2022 11:35 AM EDT 09/19/2022 11:58 AM EDT [facility] LAB MICROBIOLOGY - GENER AL ORDERABLES Final Result Performing Organization Address [facility] de Phone Number [facility] [address] [place] [address] * CT Angio Pulmonary Embolism (09/19/2022 5:03 AM EDT) Anatomical Region Laterality Modality Chest Computed Tomogra phy Impressions 09/19/2022 8:29 AM EDT No pulmonary embolism. Bilateral upper lobe subpleural groundglass opacities, most consistent with atypical viral infection including Covid 19. Mild thoracic lymphadenopathy, predominantly by the number of subcentimeter to borderline enlarged lymph nodes. Pre-existing right breast lesion, without significant change in size. CRITICAL RESULT: ?? No. COMMUNICATION: Per this written report. Drafted by Juany Larose MD on 09/19/2022 8:23 AM Final report signed by Juany Larose MD on 09/19/2022 8:29 AM Narrative 09/19/2022 8:29 AM EDT CLINICAL INDICATION: Pulmonary embolism (PE) suspected, high prob TECHNIQUE: Imaging of the chest was performed from thoracic inlet through upper abdomen, using spiral technique, following administration of IV contrast, Omnipaque 350, 100 mL per the pulmonary angiogram protocol. In addition, 3D images were created and reviewed. TOTAL DLP (Dose-Length Product): . Please note: The reported value represents the total of one or more individual components during the CT acquisition on this date and at this time, and as such, the same value may appear in more than one CT report depending on the interpreting/reporting physicians. COMPARISON: None. FINDINGS: Pulmonary Arteries/Vessels: No pulmonary embolism. Right Heart Strain: No evidence of right heart strain. Pleural/Pericardial space: No pneumothorax. ??No pleural effusions. ??No pericardial effusion. Lymph Nodes: Multiple subcentimeter lymph nodes are present within prevascular AP window, paratracheal and hilar stations. Lungs: Multiple bilateral subpleural groundglass opacities are present within upper lobes. Mediastinum: Otherwise unremarkable. Chest wall: Pre-existing 2.4 cm medial right breast lesion, image 76 of series 4, without significant change. Multiple subcentimeter to borderline enlarged bilateral axillary and subpectoral lymph nodes. Bones: No acute fracture within the chest. Upper Abdomen: Limited imaging of the upper abdomen is unremarkable. Procedure Note Juany Larose MD - 09/19/2022 CLINICAL INDICATION: Pulmonary embolism (PE) suspected, high prob TECHNIQUE: Imaging of the chest was performed from thoracic inlet through upperabdomen, using spiral technique, following administration of IV contrast,Omnipaque 350, 100 mL per the pulmonary angiogram protocol. In addition,3D images were created and reviewed. TOTAL DLP (Dose-Length Product): . Please note: The reported valuerepresents the total of one or more individual components during the CTacquisition on this date and at this time, and as such, the same value mayappear in more than one CT report depending on the interpreting/reportingphysicians. COMPARISON: None. FINDINGS: Pulmonary Arteries/Vessels: No pulmonary embolism. Right Heart Strain: No evidence of right heart strain. Pleural/Pericardial space: No pneumothorax. No pleural effusions. Nopericardial effusion. Lymph Nodes: Multiple subcentimeter lymph nodes are present withinprevascular AP window, paratracheal and hilar stations. Lungs: Multiple bilateral subpleural groundglass opacities are presentwithin upper lobes. Mediastinum: Otherwise unremarkable. Chest wall: Pre-existing 2.4 cm medial right breast lesion, image 76 ofseries 4, without significant change. Multiple subcentimeter to borderlineenlarged bilateral axillary and subpectoral lymph nodes. Bones: No acute fracture within the chest. Upper Abdomen: Limited imaging of the upper abdomen is unremarkable. IMPRESSION: No pulmonary embolism. Bilateral upper lobe subpleural groundglass opacities, most consistentwith atypical viral infection including Covid 19. Mild thoracic lymphadenopathy, predominantly by the number ofsubcentimeter to borderline enlarged lymph nodes. Pre-existing right breast lesion, without significant change in size. CRITICAL RESULT: No. COMMUNICATION: Per this written report. Drafted by Juany Larose MD on 09/19/2022 8:23 AM Final report signed by Juany Larose MD on 09/19/2022 8:29 AM Kena Sanders DO IMG CT PROCEDURES Final Result * CT Abdomen Pelvis w IV Contrast (09/19/2022 5:03 AM EDT) Anatomical Region Laterality Modality Abdomen, Pelvis Computed Tomogra phy Impressions 09/19/2022 9:15 AM EDT No evidence of acute intra-abdominal/pelvic pathology. CRITICAL RESULT: ?? No. COMMUNICATION: Per this written report. By electronically signing this report, I, the attending physician, attest that I have personally reviewed the images/data for the above examination(s) and agree with the final edited report. Drafted by Da Lawton MD on 09/19/2022 8:22 AM Final report signed by Delbert Gumzan MD on 09/19/2022 9:15 AM Narrative 09/19/2022 9:15 AM EDT CLINICAL INDICATION: Sepsis TECHNIQUE: Multiple axial CT images were obtained from lung bases through pubic symphysis following administration of IV contrast, Omnipaque 300, 100 mL. Delayed images of abdomen and kidneys also obtained. Reformatted images in the coronal and sagittal planes were generated from the axial data set to facilitate diagnostic accuracy. Total DLP (Dose-Length Product): 2495.72 mGy.cm. Please note: The reported value represents the total of one or more individual components during the CT acquisition on this date and at this time, and as such, the same value may appear in more than one CT report depending on the interpreting/reporting physicians. COMPARISON: Abdomen pelvis CT dated June 14, 2022, October 21, 2020, October 28, 2020 and December 04, 2020. FINDINGS: Lower Chest: There is redemonstration of a 2.4 cm soft tissue mass identified at the right breast; unchanged since September 2020. Unchanged 7 mm right lung base pulmonary nodule (3:11); unchanged since; unchanged since November 2020. The heart is normal in caliber. No pericardial effusion or thickening. No lung consolidates or pleural effusions. Solid Abdominal Organs: Diffuse decrease in attenuation of the liver, compatible with hepatic steatosis. No suspicious hepatic lesions. Prior cholecystectomy. No dilation of the intra and extrahepatic biliary ducts. Homogeneous enhancement of the pancreas is observed without evidence of focal lesions or pancreatic duct dilatation. The spleen is mildly enlarged in AP dimension measuring 13.6 cm. The adrenal glands are normal morphologically. No suspicious renal lesions observed. No nephrolithiasis or hydroureteronephrosis. GI Tract/Mesentery/Peritoneum: The large and small bowel appear normal in caliber. The appendix is normal. No evidence of inflammatory change. No suspicious peritoneal/mesenteric findings.. Pelvic Viscera: Anteverted uterus with bilateral ovaries identified. No suspicious pelvic lesions. The urinary bladder is partially distended without focal abnormalities. Lymph Nodes/Vasculature: No lymphadenopathy by CT size criteria. The aortoiliac vasculature is patent and normal in caliber. Free Fluid:No ascites Musculoskeletal and Body Wall: Sclerotic focus on the right iliac bone is redemonstrated (3:245). Procedure Note Delbert Guzman MD - 09/19/2022 CLINICAL INDICATION: Sepsis TECHNIQUE: Multiple axial CT images were obtained from lung bases through pubicsymphysis following administration of IV contrast, Omnipaque 300, 100 mL.Delayed images of abdomen and kidneys also obtained. Reformatted images inthe coronal and sagittal planes were generated from the axial data set tofacilitate diagnostic accuracy. Total DLP (Dose-Length Product): 2495.72 mGy.cm. Please note: The reportedvalue represents the total of one or more individual components during theCT acquisition on this date and at this time, and as such, the same valuemay appear in more than one CT report depending on theinterpreting/reporting physicians. COMPARISON: Abdomen pelvis CT dated June 14, 2022, October 21, 2020, October 28nd December 04, 2020. FINDINGS: Lower Chest: There is redemonstration of a 2.4 cm soft tissue massidentified at the right breast; unchanged since September 2020. Unchanged 7mm right lung base pulmonary nodule (3:11); unchanged since; unchangedsince November 2020. The heart is normal in caliber. No pericardialeffusion or thickening. No lung consolidates or pleural effusions. Solid Abdominal Organs: Diffuse decrease in attenuation of the liver,compatible with hepatic steatosis. No suspicious hepatic lesions. Priorcholecystectomy. No dilation of the intra and extrahepatic biliary ducts.Homogeneous enhancement of the pancreas is observed without evidence offocal lesions or pancreatic duct dilatation. The spleen is mildly enlargedin AP dimension measuring 13.6 cm. The adrenal glands are normalmorphologically. No suspicious renal lesions observed. No nephrolithiasisor hydroureteronephrosis. GI Tract/Mesentery/Peritoneum: The large and small bowel appear normal incaliber. The appendix is normal. No evidence of inflammatory change. Nosuspicious peritoneal/mesenteric findings.. Pelvic Viscera: Anteverted uterus with bilateral ovaries identified. Nosuspicious pelvic lesions. The urinary bladder is partially distendedwithout focal abnormalities. Lymph Nodes/Vasculature: No lymphadenopathy by CT size criteria. Theaortoiliac vasculature is patent and normal in caliber. Free Fluid:No ascites Musculoskeletal and Body Wall: Sclerotic focus on the right iliac bone isredemonstrated (3:245). IMPRESSION: No evidence of acute intra-abdominal/pelvic pathology. CRITICAL RESULT: No. COMMUNICATION: Per this written report. By electronically signing this report, I, the attending physician, attbraeden I have personally reviewed the images/data for the aboveexamination(s) and agree with the final edited report. Drafted by Da Lawton MD on 09/19/2022 8:22 AM Final report signed by Delbert Guzman MD on 09/19/2022 9:15 AM us Kena Gio DO IMG CT PROCEDURES Final Result * Blood Culture (Aerobic/Anaerobet Set) (09/19/2022 4:04 AM EDT) Culture No growth at day 5 FAN 09/24/2022 9:01 AM EDT [facility] Blood Venous blood specimen / Unknown Venipuncture / Unknown 09/19/2022 4:04 AM EDT 09/19/2022 4:22 AM EDT Leny Tee APRN LAB MICROBIOLOGY - GENERAL O RDERABLES Final Result Performing Organization Address City/[facility]/ZIP Co de Phone Number [facility] [address] [place] [address] * Blood Culture (Aerobic/Anaerobet Set) (09/19/2022 4:04 AM EDT) Culture No growth at day 5 FAN 09/24/2022 9:01 AM EDT [facility] Blood Venous blood specimen / Unknown Venipuncture / Unknown 09/19/2022 4:04 AM EDT 09/19/2022 4:22 AM EDT Leny Tee APRN LAB MICROBIOLOGY - GENERAL O RDERABLES Final Result Performing Organization Address City/[facility] Co de Phone Number [facility] [address] [place] [address] * (ABNORMAL) D DIMER, QUANTITATIVE (09/19/2022 4:04 AM EDT) D Dimer, Quantitative 1.43(H) <0.50 ug/mL FEU 09/19/2022 4:33 AM EDT [facility] Blood Venous blood specimen / Unknown Venipuncture / Unknown 09/19/2022 4:04 AM EDT 09/19/2022 4:16 AM EDT Narrative [facility] - 09/19/2022 4:33 AM EDT Test performed by STAGO D-dimer assay. Values greater than 0.50 ug/mL FEU should be evaluated for risk stratification of patients with possible venous thromboembolism. In addition to expected elevations following injury or surgery, D-dimer levels increase in normal and increase steadily with normal aging. Values in healthy individuals often exceed the VTE exclusion cutoff value, and should be considered in the clinical context. Kena Sanders DO LAB BLOOD ORDERABLES Fin al Result [facility] [address] [place] [address] * (ABNORMAL) Renal function panel (09/19/2022 4:04 AM EDT) Pathologist [facility] [place] Glucose, Plasma 136(H) 74 - 99 mg/dL 09/19/2022 4:58 AM EDT [facility] BUN, Plasma 7 7 - 21 mg/dL 09/19/2022 4:58 AM EDT [facility] Creatinine, Plasma 0.81 0.60 - 1.10 mg/dL 09/19/2022 4:58 AM EDT [facility] BUN/Creatinine Ratio 9 09/19/2022 4:58 AM EDT [facility] Sodium, Plasma 131(L) 136 - 145 mmol/L 09/19/2022 4:58 AM EDT [facility] Potassium, Plasma 3.4(L) 3.7 - 4.8 mmol/L 09/19/2022 4:58 AM EDT [facility] Chloride, Plasma 98 97 - 107 mmol/L 09/19/2022 4:58 AM EDT [facility] CO2, Plasma 24 22 - 29 mmol/L 09/19/2022 4:58 AM EDT [facility] Anion Gap 9 6 - 16 mmol/L 09/19/2022 4:58 AM EDT [facility] Total Calcium, Plasma 7.9(L) 8.9 - 10.2 mg/dL 09/19/2022 4:58 AM EDT [facility] Phosphorus, Plasma 4.1 2.5 - 4.5 mg/dL 09/19/2022 4:58 AM EDT [facility] Albumin, Plasma 3.5 3.5 - 5.2 g/dL 09/19/2022 4:58 AM EDT [facility] eGFRcr 97.2 mL/min/1.7 3m*2 09/19/2022 4:58 AM EDT [facility] Comment:Reported eGFRcr in m L/min/1.73m2 is based the CKD-EPI 2020 equation that does not use a race coefficient. Blood Venous blood specimen / Unknown Venipuncture / Unknown 09/19/2022 4:04 AM EDT 09/19/2022 4:16 AM EDT us Kena Sanders DO LAB BLOOD ORDERABLES Fin al Result [facility] [address] [place] [id number] * (ABNORMAL) CBC W/O Differential (09/19/2022 4:04 AM EDT) WBC Count 2.82(L) 3.70 - 10.30 10*3/uL LAB HEMATOLOGY METHOD 09/19/2022 4:20 AM EDT [facility] RBC Count 3.91 3.90 - 5.20 10*6/uL LAB HEMATOLOGY METHOD 09/19/2022 4:20 AM EDT [facility] HGB 10.3(L) 11.2 - 15.7 g/dL LAB HEMATOLOGY METHOD 09/19/2022 4:20 AM EDT [facility] HCT 32.1(L) 34.0 - 45.0 % LAB HEMATOLOGY METHOD 09/19/2022 4:20 AM EDT [facility] Platelet Count 150(L) 155 - 369 10*3/uL LAB HEMATOLOGY METHOD 09/19/2022 4:20 AM EDT [facility] MCV 82 79 - 98 fL LAB HEMATOLOGY METHOD 09/19/2022 4:20 AM EDT [facility] MCH 26.3 26.0 - 32.0 pg LAB HEMATOLOGY METHOD 09/19/2022 4:20 AM EDT [facility] MCHC 32.1 30.7 - 35.5 g/dL LAB HEMATOLOGY METHOD 09/19/2022 4:20 AM EDT [facility] RDW 15.1(H) 11.5 - 14.5 % LAB HEMATOLOGY METHOD 09/19/2022 4:20 AM EDT [facility] MPV 9.4 8.8 - 12.5 fL LAB HEMATOLOGY METHOD 09/19/2022 4:20 AM EDT [facility] nRBC 0.0 <=0.0 per 100 WBCs LAB HEMATOLOGY METHOD 09/19/2022 4:20 AM EDT [facility] Blood Venous blood specimen / Unknown Venipuncture / Unknown 09/19/2022 4:04 AM EDT 09/19/2022 4:16 AM EDT Kena Sanders DO LAB BLOOD ORDERABLES Fin al Result [facility] [address] [place] [address] * PERIPHERAL IV (SMARTFORM LINK) (09/19/2022 1:06 AM EDT) Narrative Leny Gutierrez RN - 09/19/2022 1:06 AM EDT Leny Gutierrez RN ? 09/19/2022 ??1:07 AM Insert peripheral IV Performed by: Leny Gutierrez RN Authorized by: Kena Sanders DO ?? Ruffin Protocol: ??Verbal consent obtained?: Yes ?Written consent obtained?: Yes ?Risks and benefits: Risks, benefits and alternatives were discussed ?Consent given by: ??Patient ??Patient states understanding of procedure being performed: Yes ?Patient's understanding of procedure matches consent: Yes ?Patient identity confirmed: ??Verbally with patient, arm band, provided demographic data and hospital-assigned identification number ??Time out: Immediately prior to the procedure a time out was called ?? Hand hygiene: Hand hygiene performed prior to insertion ?? Inserted using aseptic techniques: Yes ?? Preparation: ??Skin prepped with chg Orientation: ??Right Location: ??Forearm Catheter placed: ??Peripheral IV Catheter size: 20g 2.25. Line Technique: ??Ultrasound Guidance Number of attempts: ??1 IV flushes: ??Without difficulty and positive blood return noted and IV luer locked Patient tolerance: ??Patient tolerated the procedure well, there were no complications and age appropriate response IV site covered with: ??Transparent semipermeable dressing Kena Sanders DO IV THERAPY ORDERABLES Fi nal Result * ECG Adult (09/18/2022 4:56 PM EDT) EKG DIAGNOSIS CLASS Abnormal MUSE ECG Ventricular Rate 115 BPM MUSE ECG Atrial Rate [address] Interval 126 ms MUSE ECG QRSD Interval 82 ms MUSE ECG QT Interval 324 ms MUSE ECG QTC Interval 448 ms MUSE ECG P [place] 20 degrees MUSE ECG R [place] 14 degrees MUSE ECG T Wave [place] 15 degrees MUSE ECG Diagnosis Sinus tachycardia MUSE ECG Diagnosis Possible MUSE ECG Diagnosis Anterolateral infarct MUSE ECG Diagnosis , age undetermined MUSE ECG Diagnosis Poor r-wave progression in precordial leads MUSE ECG Diagnosis Abnormal ECG MUSE ECG Diagnosis Confirmed by Ankur Muniz ([id number]) on 09/19/2022 9:52:59 AM MUSE ECG 09/18/2022 4:56 PM EDT 09/19/2022 9:52 AM EDT Kena SethiPherson DO ECG ORDERABLES Final Re sult MUSE ECG * Nasopharyngeal Respiratory Panel (09/18/2022 12:35 PM EDT) Nasopharyngeal Respiratory PCR Interpretation Not Detected for all analytes Not Detected for all analytes 09/19/2022 12:55 PM EDT [facility] Swab Nasopharyngeal structure / Unknown Non-blood Collection / Unknown 09/18/2022 12:35 PM EDT 09/18/2022 1:07 PM EDT Narrative [facility] - 09/19/2022 12:55 PM EDT This assay can detect Adenovirus, Coronavirus, Human [...] Respiratory PCR Panel is performed using the Nellix instrument. This assay is for in vitro diagnostic use under the FDA Emergency Use Authorization (EUA) only. The [facility] is certified under the Clinical Laboratory Improvement Amendments of 1988 (CLIA-88) as qualified to perform high complexity clinical laboratory testing. Kena Gio DO LAB MICROBIOLOGY - GENER AL ORDERABLES Final Result Performing Organization Address [facility] Co de Phone Number [facility] [address] [place] [address] * SARS-CoV-2, Flu A, Flu B, and RSV (09/18/2022 12:35 PM EDT) [facility] SARS CoV-2/COVID-19 RNA PCR Result Not Detected Not Detected 09/18/2022 3:18 PM EDT [facility] Influenza A Virus PCR Result Not Detected Not Detected 09/18/2022 3:18 PM EDT [facility] Influenza B Virus PCR Result Not Detected Not Detected 09/18/2022 3:18 PM EDT [facility] Respiratory Syncytial Virus (RSV) PCR Result Not Detected Not Detected 09/18/2022 3:18 PM EDT [facility] Swab Nasopharyngeal structure / Unknown Non-blood Collection / Unknown 09/18/2022 12:35 PM EDT 09/18/2022 1:07 PM EDT Narrative [facility] - 09/18/2022 3:18 PM EDT This assay is for in vitro diagnostic use under FDA emergency use authorization only. Negative results do not preclude infection with the SARS CoV-2 virus and should not be the sole basis of a patient treatment/management or public health decision. Follow up testing should be performed according to the current CDC recommendations. This test was performed on the Xpert Xpress SARS CoV-2 Plus assay test, a PCR- based method. Negative results should be considered presumptive and do not preclude current or future infection obtained through community transmission or other exposures. Negative results must be considered in the context of an individual's recent exposures, history, presence of clinical signs and symptoms consistent with COVID-19. [facility]OLOGY - GENER AL ORDERABLES Final Result Performing Organization Address [facility] Co de Phone Number [facility] [address] [place] [address] * (ABNORMAL) OXYCODONE CONFIRMATION,URINE (09/18/2022 12:15 PM EDT) Oxycodone >1,000(H) <50 ng/mL 09/20/2022 7:59 PM EDT [facility] Oxymorphone <50 <50 ng/mL 09/20/2022 7:59 PM EDT [facility] Oxymorphone Glucuronide >1,000(H) <50 ng/mL 09/20/2022 7:59 PM EDT [facility] Urine Urine specimen obtained by clean catch procedure / Unknown Non-blood Collection / Unknown 09/18/2022 12:15 PM EDT 09/18/2022 12:24 PM EDT Narrative [facility] - 09/20/2022 7:59 PM EDT Test performed by LC-MS/MS at the [facility]. This test was developed and its performance characteristics determined by [facility]. It has not been cleared or approved by the FDA. The laboratory is regulated under CLIA as qualified to perform high-complexity testing. This test is used for clinical purposes. Val Palma APRN LAB URINE ORDERABLES Final Result [facility] [address] [place] [address] * (ABNORMAL) THC Urine Confirm LCMSMS (09/18/2022 12:15 PM EDT) 9 Carboxy THC <10 <10 ng/mL 09/20/2022 7:59 PM EDT [facility] 9 Carboxy THC Glucuronide 36(H) <25 ng/mL 09/20/2022 7:59 PM EDT [facility] Urine Urine specimen obtained by clean catch procedure / Unknown Non-blood Collection / Unknown 09/18/2022 12:15 PM EDT 09/18/2022 12:24 PM EDT Narrative [facility] - 09/20/2022 7:59 PM EDT Drug analysis is confirmed by LC-MS/MS (LC Tandem Mass Spectrometry) on Urine specimens. ?? This test was developed and its performance characteristics determined by [facility]. It has not been cleared or approved by the FDA. The laboratory is regulated under CLIA as qualified to perform high-complexity testing. This test is used for clinical purposes. Testing is performed at the [facility], [facility] Laboratory. Val Palma APRN LAB URINE ORDERABLES Final Result [facility] [address] [place] [address] * Drug Abuse Screen Urine (09/18/2022 12:15 PM EDT) [facility] Signature Amphetamine Screen Urine Negative Cutoff: 500 ng/mL 09/18/2022 1:07 PM EDT [facility] Benzodiazepines Screen Urine Negative Cutoff: 200 ng/mL 09/18/2022 1:07 PM EDT [facility] Cannabinoid Screen Urine Presumptive positive. Confirmation by LC-MS/MS to follow. Cutoff: 50 ng/mL 09/18/2022 1:07 PM EDT [facility] Cocaine Screen Urine Negative Cutoff: 300 ng/mL 09/18/2022 1:07 PM EDT [facility] Barbiturate Screen Urine Negative Cutoff: 200 ng/mL 09/18/2022 1:07 PM EDT [facility] Opiate Screen Urine Negative Cutoff: 300 ng/mL 09/18/2022 1:07 PM EDT [facility] Methadone Screen Urine Negative Cutoff: 300 ng/mL 09/18/2022 1:07 PM EDT [facility] Buprenorphine Screen Urine Negative Cutoff: 10 ng/mL 09/18/2022 1:07 PM EDT [facility] Fentanyl Screen Urine Negative Cutoff: 1 ng/mL 09/18/2022 1:07 PM EDT [facility] Oxycodone Screen Urine Presumptive positive. Confirmation by LC-MS/MS to follow. Cutoff: 100 ng/mL 09/18/2022 1:07 PM EDT [facility] Urine Urine specimen obtained by clean catch procedure / Unknown Non-blood Collection / Unknown 09/18/2022 12:15 PM EDT 09/18/2022 12:24 PM EDT Val Palma APRN LAB URINE ORDERABLES Final Result Performing Organization Address City/[facility]/ZIP Co de Phone Number [facility] [address] [place] [address] * (ABNORMAL) Urine Culture (09/18/2022 12:15 PM EDT) Culture 10,000 - 100,000 CFU/mL Mixed urogenita l, fecal, or skin ángela present.( A) 09/20/2022 12:50 PM EDT [facility] Comment:The organism value f or this result has been updated. These results have been appended to the previously preliminary verified report. Urine Urine specimen obtained by clean catch procedure / Unknown Non-blood Collection / Unknown 09/18/2022 12:15 PM EDT 09/18/2022 12:23 PM EDT Kena Sanders DO LAB MICROBIOLOGY - GENER AL ORDERABLES Final Result [facility] [address] [place] [address] * XR Abdomen 1 View (09/18/2022 9:31 AM EDT) Anatomical Region Laterality Modality Body Digital Radiogra phy Impressions 09/18/2022 12:29 PM EDT Gas and fecal material diffusely and mildly dilated and nondilated colon. CRITICAL RESULT: ?? No. COMMUNICATION: Per this written report. Drafted by Quan Stock MD on 09/18/2022 12:27 PM Final report signed by Quan Stock MD on 09/18/2022 12:29 PM Narrative 09/18/2022 12:29 PM EDT CLINICAL INDICATION: Abdominal pain with sepsis TECHNIQUE: XR ABDOMEN 1 VIEW COMPARISON: CT June 14, 2022. FINDINGS: There is gas and fecal material diffusely in mildly dilated and nondilated colon. The transverse colon is mildly dilated. There is no gas containing dilated small bowel or pneumoperitoneum or pneumatosis evident. There are no acute bony findings. Visualized lung bases are clear. Procedure Note Quan Stock MD - 09/18/2022 CLINICAL INDICATION: Abdominal pain with sepsis TECHNIQUE: XR ABDOMEN 1 VIEW COMPARISON: CT June 14, 2022. FINDINGS: There is gas and fecal material diffusely in mildly dilated and nondilatedcolon. The transverse colon is mildly dilated. There is no gas containingdilated small bowel or pneumoperitoneum or pneumatosis evident. There are no acute bony findings. Visualized lung bases are clear. IMPRESSION: Gas and fecal material diffusely and mildly dilated and nondilatedcolon. CRITICAL RESULT: No. COMMUNICATION: Per this written report. Drafted by Quan Stock MD on 09/18/2022 12:27 PM Final report signed by Quan Stock MD on 09/18/2022 12:29 PM Kena Sanders DO IMG XR PROCEDURES Final Result * (ABNORMAL) Comprehensive metabolic panel (09/17/2022 3:36 AM EDT) Glucose, Plasma 135(H) 74 - 99 mg/dL 09/17/2022 4:14 AM EDT [facility] BUN, Plasma 3(L) 7 - 21 mg/dL 09/17/2022 4:14 AM EDT [facility] Creatinine, Plasma 0.76 0.60 - 1.10 mg/dL 09/17/2022 4:14 AM EDT [facility] BUN/Creatinine Ratio 4 09/17/2022 4:14 AM EDT [facility] Sodium, Plasma 139 136 - 145 mmol/L 09/17/2022 4:14 AM EDT [facility] Potassium, Plasma 4.0 3.7 - 4.8 mmol/L 09/17/2022 4:14 AM EDT [facility] Chloride, Plasma 101 97 - 107 mmol/L 09/17/2022 4:14 AM EDT [facility] CO2, Plasma 27 22 - 29 mmol/L 09/17/2022 4:14 AM EDT [facility] Anion Gap 11 6 - 16 mmol/L 09/17/2022 4:14 AM EDT [facility] Total Calcium, Plasma 8.9 8.9 - 10.2 mg/dL 09/17/2022 4:14 AM EDT [facility] Total Protein 6.3 6.3 - 7.9 g/dL 09/17/2022 4:14 AM EDT [facility] Albumin, Plasma 3.7 3.5 - 5.2 g/dL 09/17/2022 4:14 AM EDT [facility] AST, Plasma 33(H) 11 - 32 U/L 09/17/2022 4:14 AM EDT [facility] ALT, Plasma 27 8 - 33 U/L 09/17/2022 4:14 AM EDT [facility] Alkaline Phosphatase, Plasma 90 35 - 104 U/L 09/17/2022 4:14 AM EDT [facility] Total Bilirubin, Plasma 0.3 0.2 - 1.1 mg/dL 09/17/2022 4:14 AM EDT [facility] eGFRcr 104.9 mL/min/1.7 3m*2 09/17/2022 4:14 AM EDT [facility] Comment: Reported eGFRcr in mL/min/1.73m2 is based the CKD-EPI 2020 equation that does not use a race coefficient. Effective 09/18/21 our laboratory changed the eGFR calculation to the CKD-EPI 2020 equation from the previously reported eGFR, based on the MDRD equation. ??For comparisons between the two equations, please see laboratory website: ??[email or web address] Blood Venous blood specimen / Unknown Venipuncture / Unknown 09/17/2022 3:36 AM EDT 09/17/2022 3:47 AM EDT Kena Sanders DO LAB BLOOD ORDERABLES Fin al Result [facility] [address] [place] [address] * (ABNORMAL) CBC W/O Differential (09/17/2022 3:36 AM EDT) WBC Count 4.34 3.70 - 10.30 10*3/uL LAB HEMATOLOGY METHOD 09/17/2022 3:50 AM EDT [facility] RBC Count 4.00 3.90 - 5.20 10*6/uL LAB HEMATOLOGY METHOD 09/17/2022 3:50 AM EDT [facility] HGB 10.6(L) 11.2 - 15.7 g/dL LAB HEMATOLOGY METHOD 09/17/2022 3:50 AM EDT [facility] HCT 33.3(L) 34.0 - 45.0 % LAB HEMATOLOGY METHOD 09/17/2022 3:50 AM EDT [facility] Platelet Count 186 155 - 369 10*3/uL LAB HEMATOLOGY METHOD 09/17/2022 3:50 AM EDT [facility] MCV 83 79 - 98 fL LAB HEMATOLOGY METHOD 09/17/2022 3:50 AM EDT [facility] MCH 26.5 26.0 - 32.0 pg LAB HEMATOLOGY METHOD 09/17/2022 3:50 AM EDT [facility] MCHC 31.8 30.7 - 35.5 g/dL LAB HEMATOLOGY METHOD 09/17/2022 3:50 AM EDT [facility] RDW 14.2 11.5 - 14.5 % LAB HEMATOLOGY METHOD 09/17/2022 3:50 AM EDT [facility] MPV 9.4 8.8 - 12.5 fL LAB HEMATOLOGY METHOD 09/17/2022 3:50 AM EDT [facility] nRBC 0.0 <=0.0 per 100 WBCs LAB HEMATOLOGY METHOD 09/17/2022 3:50 AM EDT [facility] Blood Venous blood specimen / Unknown Venipuncture / Unknown 09/17/2022 3:36 AM EDT 09/17/2022 3:47 AM EDT us Kena Sanders DO LAB BLOOD ORDERABLES Fin al Result [facility] [address] [place] [address] * POCT glucose meter (09/15/2022 7:04 PM EDT) [facility] POCT Glucose 76 74 - 99 mg/dL 09/15/2022 7:05 PM EDT [facility] Comment:Accuracy of a glucos e result obtained from a capillary whole blood specimen relies upon adequate, non-compromised capillary blood flow. If the capillary glucose result is not consistent with the patient's clinical signs and symptoms, glucose testing should be repeated with either an arterial or venous sample on the glucometer or sent to the main labortory for testing. Comment 09/15/2022 7:05 PM EDT [facility] Hospital Staff Pharmacist ID Anni Paz 7:05 PM EDT [facility] Device ID [id number] 09/15/2022 7:05 PM EDT [facility] Specimen Type POC Capillary 09/15/2022 7:05 PM EDT [facility] Blood Capillary blood specimen / Unknown 09/15/2022 7:04 PM EDT 09/15/2022 7:05 PM EDT Walt Medina MD LAB POINT OF CARE TE ST DOCKED DEVICE UNSOLICITED RESULTS Final Result Performing Organization Address City/[facility] Co de Phone Number [facility] [address] [place] [address] * (ABNORMAL) Triglycerides (09/15/2022 5:59 PM EDT) Triglycerides, Plasma 256(H) <150 mg/dL 09/16/2022 6:31 PM EDT [facility] Comment: Triglyceride Reference Range (age >17 years): Desirable:?? <150 mg/dL Borderline high:?? 150 to 199 mg/dL High:?? 200 to 499 mg/dL Very high:?? >499 mg/dL Increased risk of pancreatitis:?? >1000 mg/dL Fasting greater than or equal to 12 hours? Unknown 09/16/2022 6:31 PM EDT [facility] Blood Venous blood specimen / Unknown Venipuncture / Unknown 09/15/2022 5:59 PM EDT 09/15/2022 6:13 PM EDT Kena Sanders DO LAB BLOOD ORDERABLES Fin al Result Performing Organization Address City/[facility]/ZIP Co de Phone Number [facility] [address] [place] [address] * (ABNORMAL) CBC W/O Differential (09/15/2022 5:59 PM EDT) WBC Count 5.21 3.70 - 10.30 10*3/uL LAB HEMATOLOGY METHOD 09/15/2022 6:20 PM EDT [facility] RBC Count 3.93 3.90 - 5.20 10*6/uL LAB HEMATOLOGY METHOD 09/15/2022 6:20 PM EDT [facility] HGB 10.3(L) 11.2 - 15.7 g/dL LAB HEMATOLOGY METHOD 09/15/2022 6:20 PM EDT [facility] HCT 32.5(L) 34.0 - 45.0 % LAB HEMATOLOGY METHOD 09/15/2022 6:20 PM EDT [facility] Platelet Count 185 155 - 369 10*3/uL LAB HEMATOLOGY METHOD 09/15/2022 6:20 PM EDT [facility] MCV 83 79 - 98 fL LAB HEMATOLOGY METHOD 09/15/2022 6:20 PM EDT [facility] MCH 26.2 26.0 - 32.0 pg LAB HEMATOLOGY METHOD 09/15/2022 6:20 PM EDT [facility] MCHC 31.7 30.7 - 35.5 g/dL LAB HEMATOLOGY METHOD 09/15/2022 6:20 PM EDT [facility] RDW 14.5 11.5 - 14.5 % LAB HEMATOLOGY METHOD 09/15/2022 6:20 PM EDT [facility] MPV 9.9 8.8 - 12.5 fL LAB HEMATOLOGY METHOD 09/15/2022 6:20 PM EDT [facility] nRBC 0.0 <=0.0 per 100 WBCs LAB HEMATOLOGY METHOD 09/15/2022 6:20 PM EDT [facility] Blood Venous blood specimen / Unknown Venipuncture / Unknown 09/15/2022 5:59 PM EDT 09/15/2022 6:13 PM EDT Walt Medina MD LAB BLOOD ORDERABLES Final Re sult [facility] [address] [place] [id number] * (ABNORMAL) Comprehensive metabolic panel (09/15/2022 5:59 PM EDT) [facility] Glucose, Plasma 93 74 - 99 mg/dL 09/15/2022 6:56 PM EDT [facility] BUN, Plasma 5(L) 7 - 21 mg/dL 09/15/2022 6:56 PM EDT [facility] Creatinine, Plasma 0.74 0.60 - 1.10 mg/dL 09/15/2022 6:56 PM EDT [facility] BUN/Creatinine Ratio 7 09/15/2022 6:56 PM EDT [facility] Sodium, Plasma 137 136 - 145 mmol/L 09/15/2022 6:56 PM EDT [facility] Potassium, Plasma 4.0 3.7 - 4.8 mmol/L 09/15/2022 6:56 PM EDT [facility] Chloride, Plasma 101 97 - 107 mmol/L 09/15/2022 6:56 PM EDT [facility] CO2, Plasma 24 22 - 29 mmol/L 09/15/2022 6:56 PM EDT [facility] Anion Gap 12 6 - 16 mmol/L 09/15/2022 6:56 PM EDT [facility] Total Calcium, Plasma 8.7(L) 8.9 - 10.2 mg/dL 09/15/2022 6:56 PM EDT [facility] Total Protein 6.2(L) 6.3 - 7.9 g/dL 09/15/2022 6:56 PM EDT [facility] Albumin, Plasma 3.6 3.5 - 5.2 g/dL 09/15/2022 6:56 PM EDT [facility] AST, Plasma 17 11 - 32 U/L 09/15/2022 6:56 PM EDT [facility] ALT, Plasma 20 8 - 33 U/L 09/15/2022 6:56 PM EDT [facility] Alkaline Phosphatase, Plasma 90 35 - 104 U/L 09/15/2022 6:56 PM EDT [facility] Total Bilirubin, Plasma 0.3 0.2 - 1.1 mg/dL 09/15/2022 6:56 PM EDT [facility] eGFRcr 108.4 mL/min/1.7 3m*2 09/15/2022 6:56 PM EDT [facility] Comment: Reported eGFRcr in mL/min/1.73m2 is based the CKD-EPI 2021 equation that does not use a race coefficient. Effective 09/18/21 our laboratory changed the eGFR calculation to the CKD-EPI 2021 equation from the previously reported eGFR, based on the MDRD equation. ??For comparisons between the two equations, please see laboratory website: ??[email or web address] Blood Venous blood specimen / Unknown Venipuncture / Unknown 09/15/2022 5:59 PM EDT 09/15/2022 6:13 PM EDT us Walt Medina MD LAB BLOOD ORDERABLES Final Re sult [facility] [address] [place] [address] * XR Tibia Fibula Right 2+ Views (09/15/2022 2:12 PM EDT) Anatomical Region Laterality Modality Lower Extremities, Lower Leg Right Dig ital Radiography Impressions 09/15/2022 3:12 PM EDT No findings of deep infection. CRITICAL RESULT: ?? No. COMMUNICATION: Per this written report. Drafted by Sharif Garcia MD on 09/15/2022 3:11 PM Final report signed by Sharif Garcia MD on 09/15/2022 3:12 PM Narrative 09/15/2022 3:12 PM EDT CLINICAL INDICATION: Right anterior lower leg with swelling and erythema with area of necrosis. Evaluate for evidence of abscess, sq air, fx TECHNIQUE: XR TIBIA FIBULA RIGHT 2+ VIEWS COMPARISON: None. FINDINGS: Soft tissue wound in the distal medial anterior lower leg. No dissecting gas. No findings of osteomyelitis. Stranding of subcutaneous fat is appreciated in the anterior and lateral lower leg. Procedure Note Sharif Garcia MD - 09/15/2022 CLINICAL INDICATION: Right anterior lower leg with swelling and erythema with area of necrosis.Evaluate for evidence of abscess, sq air, fx TECHNIQUE: XR TIBIA FIBULA RIGHT 2+ VIEWS COMPARISON: None. FINDINGS: Soft tissue wound in the distal medial anterior lower leg. No dissectinggas. No findings of osteomyelitis. Stranding of subcutaneous fat isappreciated in the anterior and lateral lower leg. IMPRESSION: No findings of deep infection. CRITICAL RESULT: No. COMMUNICATION: Per this written report. Drafted by Sharif Garcia MD on 09/15/2022 3:11 PM Final report signed by Sharif Garcia MD on 09/15/2022 3:12 PM Walt Medina MD IMG XR PROCEDURES Final Resul t * POCT glucose meter (09/15/2022 12:06 PM EDT) POCT Glucose 92 74 - 99 mg/dL 09/15/2022 12:08 PM EDT [facility] Comment:Accuracy of [...] to the main labortory for testing. Comment 09/15/2022 12:08 PM EDT [facility] Hospital Staff Pharmacist ID Lorna Parekh 09/16/19 12:08 PM EDT [facility] Device ID [id number] 09/15/2022 12:08 PM EDT [facility] Specimen Type POC Capillary 09/15/2022 12:08 PM EDT [facility] Blood Capillary blood specimen / Unknown 09/15/2022 12:06 PM EDT 09/15/2022 12:08 PM EDT Walt Medina MD LAB POINT OF CARE TE ST DOCKED DEVICE UNSOLICITED RESULTS Final Result Performing Organization Address [facility]/ZIP Co de Phone Number [facility] [address] [place] [address] * Magnesium (09/15/2022 10:42 AM EDT) Magnesium, Plasma 2.1 1.9 - 2.4 mg/dL 09/15/2022 11:24 AM EDT [facility] Blood Venous blood specimen / Unknown Venipuncture / Unknown 09/15/2022 10:42 AM EDT 09/15/2022 10:54 AM EDT Walt Medina MD LAB BLOOD ORDERABLES Final Re sult [facility] [address] [place] [address] * (ABNORMAL) CBC and differential (09/15/2022 10:42 AM EDT) WBC Count 5.62 3.70 - 10.30 10*3/uL LAB HEMATOLOGY METHOD 09/15/2022 10:57 AM EDT [facility] RBC Count 3.94 3.90 - 5.20 10*6/uL LAB HEMATOLOGY METHOD 09/15/2022 10:57 AM EDT [facility] HGB 10.5(L) 11.2 - 15.7 g/dL LAB HEMATOLOGY METHOD 09/15/2022 10:57 AM EDT [facility] HCT 33.0(L) 34.0 - 45.0 % LAB HEMATOLOGY METHOD 09/15/2022 10:57 AM EDT [facility] Platelet Count 187 155 - 369 10*3/uL LAB HEMATOLOGY METHOD 09/15/2022 10:57 AM EDT [facility] MCV 84 79 - 98 fL LAB HEMATOLOGY METHOD 09/15/2022 10:57 AM EDT [facility] MCH 26.6 26.0 - 32.0 pg LAB HEMATOLOGY METHOD 09/15/2022 10:57 AM EDT [facility] MCHC 31.8 30.7 - 35.5 g/dL LAB HEMATOLOGY METHOD 09/15/2022 10:57 AM EDT [facility] RDW 14.6(H) 11.5 - 14.5 % LAB HEMATOLOGY METHOD 09/15/2022 10:57 AM EDT [facility] MPV 9.8 8.8 - 12.5 fL LAB HEMATOLOGY METHOD 09/15/2022 10:57 AM EDT [facility] nRBC 0.0 <=0.0 per 100 WBCs LAB HEMATOLOGY METHOD 09/15/2022 10:57 AM EDT [facility] Differential Type Automated LAB HEMATOLOGY METHOD 09/15/2022 10:57 AM EDT [facility] Neutrophils % 54.0 % LAB HEMATOLOGY METHOD 09/15/2022 10:57 AM EDT [facility] Lymphocytes % 39.0 % LAB HEMATOLOGY METHOD 09/15/2022 10:57 AM EDT [facility] Monocytes % 5.0 % LAB HEMATOLOGY METHOD 09/15/2022 10:57 AM EDT [facility] Eosinophils % 1.0 % LAB HEMATOLOGY METHOD 09/15/2022 10:57 AM EDT [facility] Basophils % 1.0 % LAB HEMATOLOGY METHOD 09/15/2022 10:57 AM EDT [facility] Immature Granulocytes % 0.0 % LAB HEMATOLOGY METHOD 09/15/2022 10:57 AM EDT [facility] Neutrophils Absolute 3.04 1.60 - 6.10 10*3/uL LAB HEMATOLOGY METHOD 09/15/2022 10:57 AM EDT [facility] Lymphocytes Absolute 2.17 1.20 - 3.90 10*3/uL LAB HEMATOLOGY METHOD 09/15/2022 10:57 AM EDT [facility] Monocytes Absolute 0.29(L) 0.30 - 0.90 10*3/uL LAB HEMATOLOGY METHOD 09/15/2022 10:57 AM EDT [facility] Eosinophils Absolute 0.07 0.00 - 0.50 10*3/uL LAB HEMATOLOGY METHOD 09/15/2022 10:57 AM EDT [facility] Basophils Absolute 0.03 0.00 - 0.10 10*3/uL LAB HEMATOLOGY METHOD 09/15/2022 10:57 AM EDT [facility] Immature Granulocytes Absolute 0.02 0.00 - 0.06 10*3/uL LAB HEMATOLOGY METHOD 09/15/2022 10:57 AM EDT [facility] Blood Venous blood specimen / Unknown Venipuncture / Unknown 09/15/2022 10:42 AM EDT 09/15/2022 10:54 AM EDT Narrative [facility] - 09/15/2022 10:57 AM EDT Therapeutic decision making should be based on absolute values, rather than percentages. us Walt Medina MD LAB BLOOD ORDERABLES Final Re sult [facility] [address] [place] [id number] * (ABNORMAL) Comprehensive metabolic panel (09/15/2022 10:42 AM EDT) Glucose, Plasma 91 74 - 99 mg/dL 09/15/2022 11:24 AM EDT [facility] BUN, Plasma 6(L) 7 - 21 mg/dL 09/15/2022 11:24 AM EDT [facility] Creatinine, Plasma 0.71 0.60 - 1.10 mg/dL 09/15/2022 11:24 AM EDT [facility] BUN/Creatinine Ratio 8 09/15/2022 11:24 AM EDT [facility] Sodium, Plasma 139 136 - 145 mmol/L 09/15/2022 11:24 AM EDT [facility] Potassium, Plasma 4.3 3.7 - 4.8 mmol/L 09/15/2022 11:24 AM EDT [facility] Chloride, Plasma 104 97 - 107 mmol/L 09/15/2022 11:24 AM EDT [facility] CO2, Plasma 26 22 - 29 mmol/L 09/15/2022 11:24 AM EDT [facility] Anion Gap 9 6 - 16 mmol/L 09/15/2022 11:24 AM EDT [facility] Total Calcium, Plasma 8.7(L) 8.9 - 10.2 mg/dL 09/15/2022 11:24 AM EDT [facility] Total Protein 6.0(L) 6.3 - 7.9 g/dL 09/15/2022 11:24 AM EDT [facility] Albumin, Plasma 3.6 3.5 - 5.2 g/dL 09/15/2022 11:24 AM EDT [facility] AST, Plasma 19 11 - 32 U/L 09/15/2022 11:24 AM EDT [facility] ALT, Plasma 19 8 - 33 U/L 09/15/2022 11:24 AM EDT [facility] Alkaline Phosphatase, Plasma 85 35 - 104 U/L 09/15/2022 11:24 AM EDT [facility] Total Bilirubin, Plasma 0.2 0.2 - 1.1 mg/dL 09/15/2022 11:24 AM EDT [facility] eGFRcr 113.9 mL/min/1.7 3m*2 09/15/2022 11:24 AM EDT [facility] Comment: Reported eGFRcr in mL/min/1.73m2 is based the CKD-EPI 2021 equation that does not use a race coefficient. Effective 09/18/21 our laboratory changed the eGFR calculation to the CKD-EPI 2021 equation from the previously reported eGFR, based on the MDRD equation. ??For comparisons between the two equations, please see laboratory website: ??[email or web address] Blood Venous blood specimen / Unknown Venipuncture / Unknown 09/15/2022 10:42 AM EDT 09/15/2022 10:54 AM EDT us Walt Medina MD LAB BLOOD ORDERABLES Final Re sult [facility] [address] [place] [id number] * POCT glucose meter (09/15/2022 6:18 AM EDT) [facility] POCT Glucose 91 74 - 99 mg/dL 09/15/2022 6:19 AM EDT [facility] Comment:Accuracy of [...] to the main labortory for testing. Comment 09/15/2022 6:19 AM EDT [facility] Hospital Staff Pharmacist ID Napoleon Navarro 09/15/2022 6:19 AM EDT [facility] LAB Device ID [id number] 09/15/2022 6:19 AM EDT [facility] Specimen Type POC Capillary 09/15/2022 6:19 AM EDT [facility] Blood Capillary blood specimen / Unknown 09/15/2022 6:18 AM EDT 09/15/2022 6:19 AM EDT Walt Medina MD LAB POINT OF CARE TE ST DOCKED DEVICE UNSOLICITED RESULTS Final Result Performing Organization Address City/State/[facility] de Phone Number [facility] [address] [place] [address] * POCT glucose meter (09/14/2022 10:32 PM EDT) [facility] POCT Glucose 85 74 - 99 mg/dL 09/14/2022 10:33 PM EDT [facility] Comment:Accuracy of [...] to the main labortory for testing. Comment 09/14/2022 10:33 PM EDT [facility] Hospital Staff Pharmacist ID Ember Haley 09/14/2022 10:33 PM EDT [facility] LAB Device ID [id number] 09/14/2022 10:33 PM EDT [facility] Specimen Type POC Capillary 09/14/2022 10:33 PM EDT [facility] Blood Capillary blood specimen / Unknown 09/14/2022 10:32 PM EDT 09/14/2022 10:33 PM EDT Walt Medina MD LAB POINT OF CARE TE ST DOCKED DEVICE UNSOLICITED RESULTS Final Result Performing Organization Address [facility] Co de Phone Number [facility] [address] [place] [address] * POCT glucose meter (09/14/2022 6:14 PM EDT) Pathologist [facility] [place] POCT Glucose 92 74 - 99 mg/dL 09/14/2022 6:16 PM EDT [facility] Comment:Accuracy of [...] to the main labortory for testing. Comment 09/14/2022 6:16 PM EDT [facility] Hospital Staff Pharmacist ID Nirmala Cam 023 6:16 PM EDT [facility]ARE LAB Device ID [id number] 09/14/2022 6:16 PM EDT [facility] Specimen Type POC Capillary 09/14/2022 6:16 PM EDT [facility] Blood Capillary blood specimen / Unknown 09/14/2022 6:14 PM EDT 09/14/2022 6:16 PM EDT Terrell Hare MD LAB POINT OF CARE TE ST DOCKED DEVICE UNSOLICITED RESULTS Final Result Performing Organization Address City/[facility]/ZIP Co de Phone Number [facility] [address] [place] [address] * POCT glucose meter (09/14/2022 1:10 PM EDT) Pathologist [facility] [place] POCT Glucose 86 74 - 99 mg/dL 09/14/2022 1:11 PM EDT [facility] Comment:Accuracy of [...] to the main labortory for testing. Comment 09/14/2022 1:11 PM EDT [facility] Hospital Staff Pharmacist ID Nirmala Cam 023 1:11 PM EDT [facility] Device ID [id number] 09/14/2022 1:11 PM EDT [facility] Specimen Type POC Capillary 09/14/2022 1:11 PM EDT [facility] Blood Capillary blood specimen / Unknown 09/14/2022 1:10 PM EDT 09/14/2022 1:11 PM EDT us Terrell Hare MD LAB POINT OF CARE TE ST DOCKED DEVICE UNSOLICITED RESULTS Final Result Performing Organization Address City/State/[facility] Phone Number [facility] [address] [place] [address] * POCT glucose meter (09/14/2022 6:03 AM EDT) [facility] POCT Glucose 98 74 - 99 mg/dL 09/14/2022 6:09 AM EDT [facility] Comment:Accuracy of [...] to the main labortory for testing. Comment 09/14/2022 6:09 AM EDT [facility] Hospital Staff Pharmacist ID Farida Quezada 6:09 AM EDT [facility] LAB Device ID [id number] 09/14/2022 6:09 AM EDT [facility] Specimen Type POC Capillary 09/14/2022 6:09 AM EDT [facility] Blood Capillary blood specimen / Unknown 09/14/2022 6:03 AM EDT 09/14/2022 6:09 AM EDT us Terrell Hare MD LAB POINT OF CARE TE ST DOCKED DEVICE UNSOLICITED RESULTS Final Result [facility] [address] [place] [address] * (ABNORMAL) Basic metabolic panel (09/14/2022 5:07 AM EDT) [facility] Signature Glucose, Plasma 87 74 - 99 mg/dL 09/14/2022 5:29 AM EDT [facility] BUN, Plasma 7 7 - 21 mg/dL 09/14/2022 5:29 AM EDT [facility] Creatinine, Plasma 0.61 0.60 - 1.10 mg/dL 09/14/2022 5:29 AM EDT [facility] BUN/Creatinine Ratio 11 09/14/2022 5:29 AM EDT [facility] Sodium, Plasma 136 136 - 145 mmol/L 09/14/2022 5:29 AM EDT [facility] Potassium, Plasma 4.4 3.7 - 4.8 mmol/L 09/14/2022 5:29 AM EDT [facility] Chloride, Plasma 105 97 - 107 mmol/L 09/14/2022 5:29 AM EDT [facility] CO2, Plasma 22 22 - 29 mmol/L 09/14/2022 5:29 AM EDT [facility] Anion Gap 9 6 - 16 mmol/L 09/14/2022 5:29 AM EDT [facility] Total Calcium, Plasma 8.4(L) 8.9 - 10.2 mg/dL 09/14/2022 5:29 AM EDT [facility] eGFRcr 119.7 mL/min/1.7 3m*2 09/14/2022 5:29 AM EDT [facility] Comment: Reported eGFRcr in mL/min/1.73m2 is based the CKD-EPI 2021 equation that does not use a race coefficient. Effective 09/18/21 our laboratory changed the eGFR calculation to the CKD-EPI 2021 equation from the previously reported eGFR, based on the MDRD equation. ??For comparisons between the two equations, please see laboratory website: ??[email or web address] Blood Venous blood specimen / Unknown Venipuncture / Unknown 09/14/2022 5:07 AM EDT 09/14/2022 5:09 AM EDT us Leny Tee APRN LAB BLOOD ORDERABLES Final R esult Performing Organization Address City/[facility]/ZIP Co de Phone Number [facility] [address] [place] [address] * Phosphorus (09/14/2022 5:07 AM EDT) Phosphorus, Plasma 4.0 2.5 - 4.5 mg/dL 09/14/2022 5:29 AM EDT [facility] Blood Venous blood specimen / Unknown Venipuncture / Unknown 09/14/2022 5:07 AM EDT 09/14/2022 5:09 AM EDT Leny Tee APRN LAB BLOOD ORDERABLES Final R esult Performing Organization Address City/[facility] Co de Phone Number [facility] [address] [place] [address] * Magnesium (09/14/2022 5:07 AM EDT) Pathologist [facility] [place] Magnesium, Plasma 2.0 1.9 - 2.4 mg/dL 09/14/2022 5:29 AM EDT [facility] Blood Venous blood specimen / Unknown Venipuncture / Unknown 09/14/2022 5:07 AM EDT 09/14/2022 5:09 AM EDT Leny Tee APRN LAB BLOOD ORDERABLES Final R esult Performing Organization Address City/[facility]/ZIP Co de Phone Number [facility] [address] [place] [address] * (ABNORMAL) CBC (09/14/2022 5:07 AM EDT) Pathologist [facility] [place] WBC Count 5.27 3.70 - 10.30 10*3/uL LAB HEMATOLOGY METHOD 09/14/2022 5:12 AM EDT [facility] RBC Count 4.25 3.90 - 5.20 10*6/uL LAB HEMATOLOGY METHOD 09/14/2022 5:12 AM EDT [facility] HGB 11.3 11.2 - 15.7 g/dL LAB HEMATOLOGY METHOD 09/14/2022 5:12 AM EDT [facility] HCT 34.8 34.0 - 45.0 % LAB HEMATOLOGY METHOD 09/14/2022 5:12 AM EDT [facility] Platelet Count 225 155 - 369 10*3/uL LAB HEMATOLOGY METHOD 09/14/2022 5:12 AM EDT [facility] MCV 82 79 - 98 fL LAB HEMATOLOGY METHOD 09/14/2022 5:12 AM EDT [facility] MCH 26.6 26.0 - 32.0 pg LAB HEMATOLOGY METHOD 09/14/2022 5:12 AM EDT [facility] MCHC 32.5 30.7 - 35.5 g/dL LAB HEMATOLOGY METHOD 09/14/2022 5:12 AM EDT [facility] RDW 14.7(H) 11.5 - 14.5 % LAB HEMATOLOGY METHOD 09/14/2022 5:12 AM EDT [facility] MPV 9.4 8.8 - 12.5 fL LAB HEMATOLOGY METHOD 09/14/2022 5:12 AM EDT [facility] nRBC 0.0 <=0.0 per 100 WBCs LAB HEMATOLOGY METHOD 09/14/2022 5:12 AM EDT [facility] Blood Venous blood specimen / Unknown Venipuncture / Unknown 09/14/2022 5:07 AM EDT 09/14/2022 5:09 AM EDT Leny Tee APRN LAB BLOOD ORDERABLES Final R esult [facility] [address] [place] [address] * hCG qualitative (09/13/2022 11:55 PM EDT) Test Negative Negative 09/14/2022 12:28 AM EDT [facility] Blood Venous blood specimen / Unknown Venipuncture / Unknown 09/13/2022 11:55 PM EDT 09/14/2022 12:05 AM EDT Narrative [facility]ALTH[facility]ARE [facility] - 09/14/2022 12:28 AM EDT Reference Range: Males and non- females: Negative. Lester Meredith MD LAB BLOOD ORDERABLES Fi nal Result [facility] [address] [place] [address] * (ABNORMAL) CBC w/diff (09/13/2022 11:55 PM EDT) [facility] Signature WBC Count 7.60 3.70 - 10.30 10*3/uL LAB HEMATOLOGY METHOD 09/14/2022 12:07 AM EDT [facility] RBC Count 4.60 3.90 - 5.20 10*6/uL LAB HEMATOLOGY METHOD 09/14/2022 12:07 AM EDT [facility] HGB 12.3 11.2 - 15.7 g/dL LAB HEMATOLOGY METHOD 09/14/2022 12:07 AM EDT [facility] HCT 37.6 34.0 - 45.0 % LAB HEMATOLOGY METHOD 09/14/2022 12:07 AM EDT [facility] Platelet Count 264 155 - 369 10*3/uL LAB HEMATOLOGY METHOD 09/14/2022 12:07 AM EDT [facility] MCV 82 79 - 98 fL LAB HEMATOLOGY METHOD 09/14/2022 12:07 AM EDT [facility] MCH 26.7 26.0 - 32.0 pg LAB HEMATOLOGY METHOD 09/14/2022 12:07 AM EDT [facility] MCHC 32.7 30.7 - 35.5 g/dL LAB HEMATOLOGY METHOD 09/14/2022 12:07 AM EDT [facility] RDW 14.6(H) 11.5 - 14.5 % LAB HEMATOLOGY METHOD 09/14/2022 12:07 AM EDT [facility] MPV 9.6 8.8 - 12.5 fL LAB HEMATOLOGY METHOD 09/14/2022 12:07 AM EDT [facility] nRBC 0.0 <=0.0 per 100 WBCs LAB HEMATOLOGY METHOD 09/14/2022 12:07 AM EDT [facility] Differential Type Automated LAB HEMATOLOGY METHOD 09/14/2022 12:07 AM EDT [facility] Neutrophils % 53.0 % LAB HEMATOLOGY METHOD 09/14/2022 12:07 AM EDT [facility] Lymphocytes % 37.0 % LAB HEMATOLOGY METHOD 09/14/2022 12:07 AM EDT [facility] Monocytes % 6.0 % LAB HEMATOLOGY METHOD 09/14/2022 12:07 AM EDT [facility] Eosinophils % 2.0 % LAB HEMATOLOGY METHOD 09/14/2022 12:07 AM EDT [facility] Basophils % 1.0 % LAB HEMATOLOGY METHOD 09/14/2022 12:07 AM EDT [facility] Immature Granulocytes % 1.0 % LAB HEMATOLOGY METHOD 09/14/2022 12:07 AM EDT [facility] Neutrophils Absolute 4.13 1.60 - 6.10 10*3/uL LAB HEMATOLOGY METHOD 09/14/2022 12:07 AM EDT [facility] Lymphocytes Absolute 2.81 1.20 - 3.90 10*3/uL LAB HEMATOLOGY METHOD 09/14/2022 12:07 AM EDT [facility] Monocytes Absolute 0.42 0.30 - 0.90 10*3/uL LAB HEMATOLOGY METHOD 09/14/2022 12:07 AM EDT [facility] Eosinophils Absolute 0.14 0.00 - 0.50 10*3/uL LAB HEMATOLOGY METHOD 09/14/2022 12:07 AM EDT [facility] Basophils Absolute 0.06 0.00 - 0.10 10*3/uL LAB HEMATOLOGY METHOD 09/14/2022 12:07 AM EDT [facility] Immature Granulocytes Absolute 0.04 0.00 - 0.06 10*3/uL LAB HEMATOLOGY METHOD 09/14/2022 12:07 AM EDT [facility] Blood Venous blood specimen / Unknown Venipuncture / Unknown 09/13/2022 11:55 PM EDT 09/14/2022 12:05 AM EDT Narrative [facility]ARE [facility] - 09/14/2022 12:07 AM EDT Therapeutic decision making should be based on absolute values, rather than percentages. us Lester Meredith MD LAB BLOOD ORDERABLES Fi nal Result [facility] [address] [place] [address] * (ABNORMAL) CMP (09/13/2022 11:55 PM EDT) Glucose, Plasma 91 74 - 99 mg/dL 09/14/2022 12:28 AM EDT [facility] BUN, Plasma 10 7 - 21 mg/dL 09/14/2022 12:28 AM EDT [facility] Creatinine, Plasma 0.62 0.60 - 1.10 mg/dL 09/14/2022 12:28 AM EDT [facility] BUN/Creatinine Ratio 16 09/14/2022 12:28 AM EDT [facility] Sodium, Plasma 136 136 - 145 mmol/L 09/14/2022 12:28 AM EDT [facility] Potassium, Plasma 3.8 3.7 - 4.8 mmol/L 09/14/2022 12:28 AM EDT [facility] Chloride, Plasma 104 97 - 107 mmol/L 09/14/2022 12:28 AM EDT [facility] CO2, Plasma 18(L) 22 - 29 mmol/L 09/14/2022 12:28 AM EDT [facility] Anion Gap 14 6 - 16 mmol/L 09/14/2022 12:28 AM EDT [facility] Total Calcium, Plasma 9.0 8.9 - 10.2 mg/dL 09/14[facility]22 [facility] Total Protein 6.6 6.3 - 7.9 g/dL 09/14/2022 12:28 AM EDT [facility] Albumin, Plasma 4.0 3.5 - 5.2 g/dL 09/14/2022 12:28 AM EDT [facility] AST, Plasma 19 11 - 32 U/L 09/14/2022 12:28 AM EDT [facility] ALT, Plasma 23 8 - 33 U/L 09/14/2022 12:28 AM EDT [facility] Alkaline Phosphatase, Plasma 98 35 - 104 U/L 09/14/2022 12:28 AM EDT [facility] Total Bilirubin, Plasma <0.2(L) 0.2 - 1.1 mg/dL 09/14/2022 12:28 AM EDT [facility] eGFRcr 119.3 mL/min/1.7 3m*2 09/14/2022 12:28 AM EDT [facility] Comment: Reported eGFRcr in mL/min/1.73m2 is based the CKD-EPI 2021 equation that does not use a race coefficient. Effective 09/18/21 our laboratory changed the eGFR calculation to the CKD-EPI 2021 equation from the previously reported eGFR, based on the MDRD equation. ??For comparisons between the two equations, please see laboratory website: ??[email or web address] Blood Venous blood specimen / Unknown Venipuncture / Unknown 09/13/2022 11:55 PM EDT 09/14/2022 12:05 AM EDT Lester Meredith MD LAB BLOOD ORDERABLES Fi nal Result Performing Organization Address City/[facility] Co de Phone Number [facility] [address] [place] [address] * (ABNORMAL) Lipase (09/13/2022 11:55 PM EDT) Lipase, Plasma 696(H) 19 - 63 U/L 09/14/2022 12:40 AM EDT [facility] Blood Venous blood specimen / Unknown Venipuncture / Unknown 09/13/2022 11:55 PM EDT 09/14/2022 12:05 AM EDT Lester Meredith MD LAB BLOOD ORDERABLES Fi nal Result Performing Organization Address City/[facility] de Phone Number [facility] [address] [place] [address] documented in this encounter Visit Diagnoses Diagnosis Acute on chronic pancreatitis (CMS/HCC)- Primary Acute on chronic pancreatitis (CMS/HCC) Hypertension Unspecified essential hypertension Nicotine dependence Tobacco use disorder Depression Depressive disorder, not elsewhere classified Bipolar depression (CMS/HCC) Bipolar I disorder, most recent episode (or current) depressed, unspecified Fibromyalgia Unspecified myalgia and myositis GERD (gastroesophageal reflux disease) Esophageal reflux Obesity (BMI 35.0-39.9 without comorbidity) Chronic pain Other chronic pain Anxiety Anxiety state, unspecified Epigastric pain Abdominal pain, epigastric Atypical pneumonia Pneumonia, organism unspecified documented in this encounter Admitting Diagnoses Diagnosis Acute on chronic pancreatitis (CMS/HCC) documented in this encounter Administered Medications Inactive Administered Medications - up to 3 most recent administrations Medication Order MAR Action Action Date Dose Rate Site acetaminophen (Tylenol) tablet 650 mg 650 mg, Oral, Every 8 hours PRN, Starting on Thu09/17/22 at 1201, Until Annabel 09/18/22 at 1603, Routine, moderate pain Given 09/18/2022 12:26 PM EDT 650 mg Given 09/17/2022 12:31 PM EDT 650 mg acetaminophen (Tylenol) tablet 650 mg 650 mg, Oral, Every 8 hours PRN, Starting on Annabel 09/18/22 at 1603, Until 09/20/22 at 2032, Routine, moderate pain, fever Given 09/20/2022 1:21 PM EDT 650 mg Given 09/19/2022 9:22 PM EDT 650 mg Given 09/18/2022 8:29 PM EDT 650 mg amitriptyline (Elavil) tablet 25 mg 25 mg, Oral, Nightly, First dose on Thu09/14/22 at 2100, Until Discontinued, Routine Given 09/19/2022 9:23 PM EDT 25 mg Given 09/17/2022 8:35 PM EDT 25 mg Given 09/16/2022 9:36 PM EDT 25 mg busPIRone (Buspar) tablet 10 mg 10 mg, Oral, 2 times daily, First dose on Thu09/17/22 at 2100, Until Discontinued, Routine Given 09/20/2022 8:17 AM EDT 10 mg Given 09/19/2022 8:06 PM EDT 10 mg Given 09/19/2022 8:40 AM EDT 10 mg cefepime (Maxipime) 2 g in sodium chloride 0.9% 100 mL IVPB (Mini-Bag Plus) 2 g, Intravenous, Every 8 hours, First dose on Annabel 09/18/22 at 0845, Until Discontinued, Routine New Bag 09/19/2022 8:41 AM EDT 2 g New Bag 09/19/2022 12:18 AM EDT 2 g New Bag 09/18/2022 4:43 PM EDT 2 g docusate sodium (Colace) capsule 100 mg 100 mg, Oral, 2 times daily, First dose on Thu09/16/22 at 1030, Until Discontinued, Routine Given 09/20/2022 8:17 AM EDT 100 mg Given 09/19/2022 8:06 PM EDT 100 mg Given 09/19/2022 8:40 AM EDT 100 mg enoxaparin (Lovenox) syringe 40 mg 40 mg, Subcutaneous, Daily, First dose on Thu09/14/22 at 0900, Until Discontinued, Routine Given 09/18/2022 8:40 AM EDT 40 mg Left Lower Abdomen Given 09/17/2022 8:32 AM EDT 40 mg Le ft Lower Abdomen Given 09/16/2022 8:04 AM EDT 40 mg Ri ght Lower Abdomen HYDROmorphone (Dilaudid) injection 0.5 mg 0.5 mg, Intravenous, Once, 1 dose, On Thu09/14/22 at 0245, STAT Given 09/14/2022 2:55 AM EDT 0.5 mg HYDROmorphone (Dilaudid) injection 0.5 mg 0.5 mg, Intravenous, Every 3 hours PRN, Starting on Thu09/14/22 at 0600, Until Thu09/15/22 at 1708, Routine, severe pain, breakthrough pain Given 09/15/2022 4:55 PM EDT 0.5 mg Given 09/15/2022 1:45 PM EDT 0.5 mg Given 09/15/2022 9:34 AM EDT 0.5 mg HYDROmorphone (Dilaudid) injection 1 mg 1 mg, Intravenous, Every 3 hours PRN, Starting on Thu09/15/22 at 1708, Until Thu09/17/22 at 0933, Routine, severe pain, breakthrough pain Given 09/17/2022 9:23 AM EDT 1 mg Given 09/17/2022 6:36 AM EDT 1 mg Given 09/17/2022 3:35 AM EDT 1 mg HYDROmorphone (Dilaudid) injection 1 mg 1 mg, Intravenous, Every 6 hours PRN, Starting on Thu09/17/22 at 0945, Until Thu09/19/22 at 1116, Routine, severe pain, breakthrough pain Given 09/19/2022 5:40 AM EDT 1 mg Given 09/18/2022 10:54 PM EDT 1 mg Given 09/18/2022 4:40 PM EDT 1 mg hydrOXYzine pamoate (Vistaril) capsule 25 mg 25 mg, Oral, Every 6 hours PRN, Starting on Thu09/14/22 at 1928, Until Thu09/20/22 at 2031, Routine, anxiety Given 09/20/2022 1:21 PM EDT 25 mg Given 09/20/2022 4:49 AM EDT 25 mg Given 09/18/2022 11:00 PM EDT 25 mg hydrOXYzine pamoate (Vistaril) capsule 25 mg 25 mg, Oral, Once, 1 dose, On Thu09/17/22 at 0530, Routine Given 09/17/2022 5:35 AM EDT 25 mg iohexol (OMNIPaque) 350 MG/ML injection 100 mL 100 mL, Intravenous, Once in imaging, 1 dose, Starting on Thu09/19/22 at 0425, Until Thu09/19/22 at 0503, Routine, Imaging Protocol Orders Given 09/19/2022 5:03 AM EDT 100 mL ketorolac (Toradol) injection 15 mg 15 mg, Intravenous, Once, 1 dose, On 09/13/22 at 2350, STAT Given 09/14/2022 12:09 AM EDT 15 mg lactated Ringer's infusion 1,000 mL 1,000 mL, Intravenous, Once, 1 dose, On 09/13/22 at 2350, STAT New Bag 09/14/2022 12:00 AM EDT 1,000 mL lactated Ringer's infusion 100 mL/hr, Intravenous, Continuous, Starting on Thu09/14/22 at 0330, Until Thu09/14/22 at 1639, Routine Restarted 09/14/2022 10:44 AM EDT 100 mL/hr 100 m L/hr New Bag 09/14/2022 6:40 AM EDT 100 mL/hr 100 mL/hr lactated Ringer's infusion 75 mL/hr, Intravenous, Continuous, Starting on Thu09/15/22 at 0045, Until Thu09/15/22 at 1225, Routine New Bag 09/15/2022 7:01 AM EDT 75 mL/ hr 75 mL/hr New Bag 09/15/2022 12:26 AM EDT 75 mL/hr 75 mL/hr lactated Ringer's infusion 75 mL/hr, Intravenous, Continuous, Starting on Thu09/15/22 at 1645, Until Thu09/16/22 at 1200, Routine New Bag 09/15/2022 8:18 PM EDT 75 mL/ hr 75 mL/hr New Bag 09/15/2022 5:17 PM EDT 75 mL/hr 75 mL/hr lactated Ringer's infusion 125 mL/hr, Intravenous, Continuous, Starting on Annabel 09/18/22 at 0900, Until 09/20/22 at 0948, Routine New Bag 09/18/2022 11:11 AM EDT 125 mL/hr 125 m L/hr lactulose (Chronulac) 10 GM/15ML solution 20 g 20 g, Oral, Daily, First dose on Thu09/18/22 at 1015, Until Discontinued, Routine Given 09/20/2022 8:16 AM EDT 20 g Given 09/19/2022 8:47 AM EDT 20 g Given 09/18/2022 10:35 AM EDT 20 g lactulose (Chronulac) 10 GM/15ML solution 20 g 20 g, Oral, Once, 1 dose, On Thu09/19/22 at 1845, Routine Given 09/19/2022 6:29 PM EDT 20 g levoFLOXacin (Levaquin) tablet 750 mg 750 mg, Oral, Daily, First dose on Thu09/19/22 at 1100, Until Discontinued, Routine Given 09/20/2022 8:17 AM EDT 750 mg Given 09/19/2022 11:31 AM EDT 750 mg morphine PF 4 mg 4 mg, Intravenous, Once, 1 dose, On 09/13/22 at 2350, STAT Given 09/14/2022 12:06 AM EDT 4 mg morphine PF 4 mg 4 mg, Intravenous, Once, 1 dose, On Thu09/14/22 at 0135, STAT Given 09/14/2022 1:34 AM EDT 4 mg nystatin (Mycostatin) 134575 UNIT/GM powder 1 Application Topical, 2 times daily, First dose on Thu09/17/22 at 0500, Until Discontinued, Routine Given 09/20/2022 8:18 AM EDT 1 Application Given 09/19/2022 8:11 PM EDT 1 Application Given 09/19/2022 8:42 AM EDT 1 Application ondansetron (Zofran) injection 4 mg 4 mg, Intravenous, Once, 1 dose, On 09/13/22 at 2350, STAT Given 09/14/2022 12:03 AM EDT 4 mg ondansetron (Zofran) injection 4 mg 4 mg, Intravenous, Every 6 hours PRN, Starting on Thu09/14/22 at 0327, Until Thu09/16/22 at 0949, Routine, nausea, vomiting Given 09/16/2022 8:55 AM EDT 4 mg Given 09/16/2022 3:00 AM EDT 4 mg Given 09/15/2022 8:18 PM EDT 4 mg oxyCODONE (Roxicodone) immediate release tablet 10 mg 10 mg, Oral, Every 6 hours PRN, Starting on Thu09/14/22 at 0330, Until Thu09/15/22 at 1017, Routine, severe pain Given 09/15/2022 9:34 AM EDT 10 mg Given 09/15/2022 3:53 AM EDT 10 mg Given 09/14/2022 8:48 PM EDT 10 mg oxyCODONE (Roxicodone) immediate release tablet 10 mg 10 mg, Oral, Every 4 hours PRN, Starting on Thu09/15/22 at 1015, Until Thu09/16/22 at 1752, Routine, severe pain Given 09/16/2022 3:55 PM EDT 10 mg Given 09/16/2022 12:07 PM EDT 10 mg Given 09/16/2022 8:04 AM EDT 10 mg oxyCODONE (Roxicodone) immediate release tablet 10 mg 10 mg, Oral, Every 4 hours PRN, Starting on Thu09/17/22 at 1602, Until 09/20/22 at 2031, Routine, moderate pain Given 09/18/2022 8:29 PM EDT 10 mg oxyCODONE (Roxicodone) immediate release tablet 15 mg 15 mg, Oral, Every 4 hours PRN, Starting on Thu09/16/22 at 1752, Until Thu09/17/22 at 1603, Routine, severe pain Given 09/17/2022 12:31 PM EDT 15 mg Given 09/17/2022 8:32 AM EDT 15 mg Given 09/17/2022 4:11 AM EDT 15 mg oxyCODONE (Roxicodone) immediate release tablet 20 mg 20 mg, Oral, Every 4 hours PRN, Starting on Thu09/17/22 at 1602, Until Thu09/20/22 at 2031, Routine, severe pain Given 09/20/2022 2:36 PM EDT 20 mg Given 09/20/2022 9:54 AM EDT 20 mg Given 09/20/2022 6:00 AM EDT 20 mg pancrelipase (Creon) 47387 units capsule 2 capsule, Oral, 3 times daily with meals, First dose on Thu09/17/22 at 1230, Until Discontinued, Routine Given 09/20/2022 12:31 PM EDT 2 capsule s Given 09/20/2022 8:16 AM EDT 2 capsules Given 09/19/2022 5:13 PM EDT 2 capsules pancrelipase (Creon) 57636 units capsule 1 capsule, Oral, As needed, Starting on Thu09/17/22 at 1017, Until Thu09/20/22 at 203, Routine, snacks pantoprazole (Protonix) EC tablet 40 mg 40 mg, Oral, 2 times daily, First dose on Thu09/14/22 at 0900, Until Discontinued, Routine Given 09/20/2022 8:17 AM EDT 40 mg Given 09/19/2022 8:07 PM EDT 40 mg Given 09/19/2022 8:39 AM EDT 40 mg polyethylene glycol (Miralax) packet 17 g 17 g, Oral, Daily, First dose on Thu09/16/22 at 1030, Until Discontinued, Routine Given 09/20/2022 8:16 AM EDT 17 g Given 09/19/2022 8:40 AM EDT 17 g Given 09/18/2022 8:41 AM EDT 17 g pregabalin (Lyrica) capsule 300 mg 300 mg, Oral, 2 times daily, First dose on Thu09/14/22 at 0900, Until Discontinued Given 09/20/2022 8:17 AM EDT 300 mg Given 09/19/2022 8:06 PM EDT 300 mg Given 09/19/2022 8:40 AM EDT 300 mg prochlorperazine (Compazine) injection 2.5 mg 2.5 mg, Intravenous, Every 6 hours PRN, Starting on Thu09/14/22 at 0327, Until Thu09/17/22 at 1848, Routine, nausea, vomiting Given 09/17/2022 3:36 PM EDT 2 .5 mg Given 09/17/2022 6:36 AM EDT 2.5 mg Given 09/17/2022 12:33 AM EDT 2.5 mg prochlorperazine (Compazine) injection 2.5 mg 2.5 mg, Intravenous, Every 4 hours PRN, Starting on Thu09/17/22 at 1900, Until 09/20/22 at 2031, Routine, nausea, vomiting Given 09/19/2022 9:27 PM EDT 2 .5 mg Given 09/19/2022 12:34 PM EDT 2.5 mg Given 09/19/2022 5:39 AM EDT 2.5 mg promethazine (Phenergan) injection 25 mg 25 mg, Intravenous, Once, 1 dose, On Thu09/14/22 at 0055, STAT Given 09/14/2022 1:03 AM EDT 25 mg sodium chloride 0.9 % flush 10 mL 10 mL, Intravenous, Every 8 hours PRN, Starting on Thu09/14/22 at 0323, Until 09/20/22 at 2031, Routine, line care sodium chloride 0.9 % flush 10 mL 10 mL, Intravenous, As needed, Starting on Thu09/14/22 at 0323, Until Thu09/20/22 at 2031, Routine, line care sucralfate (Carafate) 1 GM/10ML suspension 1 g 1 g, Oral, 4 times daily before meals and nightly, First dose on Thu09/18/22 at 1700, Until Discontinued, Routine Given 09/20/2022 12:31 PM EDT 1 g Given 09/20/2022 8:16 AM EDT 1 g Given 09/19/2022 8:06 PM EDT 1 g vancomycin (Vancocin) 3,000 mg in sodium chloride 0.9 % 500 mL IVPB 3,000 mg, Intravenous, Once, 1 dose, On Thu09/18/22 at 0900, at 257.8 mL/hr, STAT New Bag 09/18/2022 12:26 PM EDT 3,000 mg 257.8 mL/ hr vancomycin IVPB 2000 mg in 250 mL NS IVPB 2,000 mg, Intravenous, Every 12 hours, First dose on Thu09/19/22 at 0100, Until Discontinued, at 147.5 mL/hr, Routine New Bag 09/20/2022 12:15 AM EDT 2,000 mg 147.5 mL/hr New Bag 09/19/2022 12:38 PM EDT 2,000 mg 147.5 mL/hr New Bag 09/19/2022 12:42 AM EDT 2,000 mg 147.5 mL/hr documented in this encounter Active and Recently Administered Medications Times are shown in EDT. Scheduled Medication Order 09/18/2022 09/19/2022 09/20/2022 amitriptyline (Elavil) tablet 25 mg 25 mg, Oral, Nightly, First dose on Thu09/14/22 at 2100, Until Discontinued, Routine 2030 (Not Given - Provider: Jose Arango - Reason: Patient/family refused) 2122 (Given - Provider: Jose Arango) busPIRone (Buspar) tablet 10 mg 10 mg, Oral, 2 times daily, First dose on Thu09/17/22 at 2100, Until Discontinued, Routine 0841 (Given - Provider: Brooke Shook LPN)2029 (Given - Provider: Jose Arango) 0840 (Given - Provider: Kallie Bender, CHANDNI)2005 (Given - Provider: Jose Arango) 0817 (Given - Provider: Kallie Bender, RN) cefepime (Maxipime) 2 g in sodium chloride 0.9% 100 mL IVPB (Mini-Bag Plus) (CANCELED) 2 g, Intravenous, Every 8 hours, First dose on Thu09/18/22 at 0845, Until Discontinued, Routine 0840 (New Bag - Provider: Brooke Shook LPN)1643 (New Bag - Provider: Brokoe Shook LPN) 0018 (New Bag - Provider: Jose Arango)0841 (New Bag - Provider: Kallie Bender, CHANDNI) docusate sodium (Colace) capsule 100 mg 100 mg, Oral, 2 times daily, First dose on Thu09/16/22 at 1030, Until Discontinued, Routine 0841 (Given - Provider: Brooke Shook LPN)2029 (Given - Provider: Jose Arango) 0840 (Given - Provider: Kallie Bender, CHANDNI)2005 (Given - Provider: Jose Arango) 0817 (Given - Provider: Kallie Bender, CHANDNI) enoxaparin (Lovenox) syringe 40 mg 40 mg, Subcutaneous, Daily, First dose on Thu09/14/22 at 0900, Until Discontinued, Routine 0840 (Given - Provider: Brooke Shook LPN) 0841 (Not Given - Provider: Kallie Bender RN - Reason: Patient/family refused) 0817 (Not Given - Provider: Kallie Bender RN - Reason: Patient/family refused) iohexol (OMNIPaque) 350 MG/ML injection 100 mL (COMPLETED) 100 mL, Intravenous, Once in imaging, 1 dose, Starting on Thu09/19/22 at 0425, Until Thu09/19/22 at 0503, Routine, Imaging Protocol Orders 0503 (Given - Provider: Rubens Ellis) lactulose (Chronulac) 10 GM/15ML solution 20 g 20 g, Oral, Daily, First dose on Thu09/18/22 at 1015, Until Discontinued, Routine 1035 (Given - Provider: Brooke Shook LPN) 0847 (Given - Provider: Kallie Bender RN) 0816 (Given - Provider: Kallie Bender RN) lactulose (Chronulac) 10 GM/15ML solution 20 g (COMPLETED) 20 g, Oral, Once, 1 dose, On Thu09/19/22 at 1845, Routine 1829 (Given - Provider: Kallie Bender RN) levoFLOXacin (Levaquin) tablet 750 mg 750 mg, Oral, Daily, First dose on Thu09/19/22 at 1100, Until Discontinued, Routine 1131 (Given - Provider: Kallie Bender RN) 0817 (Given - Provider: Kallie Bender RN) nystatin (Mycostatin) 924224 UNIT/GM powder 1 Application Topical, 2 times daily, First dose on Thu09/17/22 at 0500, Until Discontinued, Routine 0844 (Given - Provider: Brooke Shook LPN)2030 (Given - Provider: Jose Arango) 0842 (Given - Provider: Kallie Bender RN)2010 (Given - Provider: Jose Arango) 0818 (Given - Provider: Kallie Bender RN) pancrelipase (Creon) 24403 units capsule 2 capsule, Oral, 3 times daily with meals, First dose on Thu09/17/22 at 1230, Until Discontinued, Routine 0841 (Not Given - Provider: Brooke Shook LPN - Reason: Patient/family refused)1212 (Not Given - Provider: Brooke Shook LPN - Reason: Patient/family refused)1641 (Not Given - Provider: Brooke J [place], FLIGHT ENGINEER MANAGER - Reason: Patient/family refused) 0840 (Given - Provider: Kallie Bender RN)1228 (Given - Provider: Kallie Bender RN)1713 (Given - Provider: Kallie Bender RN) 0816 (Given - Provider: Kallie Bender RN)1231 (Given - Provider: Kallie Bender RN)1730 (Canceled Entry - Provider: Automatic Discharge Provider - Comment: Automatically canceled at discontinue of medication order) pantoprazole (Protonix) EC tablet 40 mg 40 mg, Oral, 2 times daily, First dose on Thu09/14/22 at 0900, Until Discontinued, Routine 0841 (Given - Provider: Brooke Shook LPN)2029 (Given - Provider: Jose Arango) 0839 (Given - Provider: Kallie Bender RN)2006 (Given - Provider: Jose Arango) 0817 (Given - Provider: Kallie Bender RN) polyethylene glycol (Miralax) packet 17 g 17 g, Oral, Daily, First dose on Thu09/16/22 at 1030, Until Discontinued, Routine 0841 (Given - Provider: Brooke Shook LPN) 0840 (Given - Provider: Kallie Bender RN) 0816 (Given - Provider: Kallie Bender RN) pregabalin (Lyrica) capsule 300 mg 300 mg, Oral, 2 times daily, First dose on Thu09/14/22 at 0900, Until Discontinued 0841 (Given - Provider: Brooke Shook LPN)2029 (Given - Provider: Jose Arango) 0840 (Given - Provider: Kallie Bender RN)2005 (Given - Provider: Jose Arango) 0817 (Given - Provider: Kallie Bender RN) sucralfate (Carafate) 1 GM/10ML suspension 1 g 1 g, Oral, 4 times daily before meals and nightly, First dose on Thu09/18/22 at 1700, Until Discontinued, Routine 1640 (Given - Provider: Brooke Shook LPN)2030 (Given - Provider: Jose Arango) 0839 (Given - Provider: Kallie Bender RN)1228 (Given - Provider: Kallie Bender RN)1713 (Given - Provider: Kallie Bender RN)2005 (Given - Provider: Jose Arango) 0816 (Given - Provider: Kallie Bender RN)1231 (Given - Provider: Kallie Bender RN)1700 (Canceled Entry - Provider: Automatic Discharge Provider - Comment: Automatically canceled at discontinue of medication order) vancomycin (Vancocin) 3,000 mg in sodium chloride 0.9 % 500 mL IVPB (COMPLETED) 3,000 mg, Intravenous, Once, 1 dose, On Thu09/18/22 at 0900, at 257.8 mL/hr, STAT 1226 (New Bag - Provider: Brooke Shook LPN - Comment: limited IV access) vancomycin IVPB 2000 mg in 250 mL NS IVPB (CANCELED) 2,000 mg, Intravenous, Every 12 hours, First dose on Thu09/19/22 at 0100, Until Discontinued, at 147.5 mL/hr, Routine 0042 (New Bag - Provider: Jose Arango)1238 (New Bag - Provider: Kallie Bender RN) 0015 (New Bag - Provider: Jose Arango) Continuous Medication Order 09/18/2022 09/19/2022 09/20/2022 lactated Ringer's infusion (CANCELED) 125 mL/hr, Intravenous, Continuous, Starting on Thu09/18/22 at 0900, Until 09/20/22 at 0948, Routine 1111 (New Bag - Provider: Brooke Shook LPN) PRN Medication Order 09/18/2022 09/19/2022 09/20/2022 acetaminophen (Tylenol) tablet 650 mg (CANCELED) 650 mg, Oral, Every 8 hours PRN, Starting on Thu09/17/22 at 1201, Until Thu09/18/22 at 1603, Routine, moderate pain 1226 (Given - Provider: Brooke Shook LPN) acetaminophen (Tylenol) tablet 650 mg 650 mg, Oral, Every 8 hours PRN, Starting on Thu09/18/22 at 1603, Until 09/20/22 at 2032, Routine, moderate pain, fever 2028 (Given - Provider: Jose Arango) 212 (Given - Provider: Jose Arango) 1321 (Given - Provider: Kallie Bender RN) HYDROmorphone (Dilaudid) injection 1 mg (CANCELED) 1 mg, Intravenous, Every 6 hours PRN, Starting on Thu09/17/22 at 0945, Until Thu09/19/22 at 1116, Routine, severe pain, breakthrough pain 0314 (Given - Provider: Vane Madrid RN)1035 (Given - Provider: Brooke Shook LPN)1640 (Given - Provider: Brooke Shook LPN)2254 (Given - Provider: Jose Arango) 0540 (Given - Provider: Jose Arango) hydrOXYzine pamoate (Vistaril) capsule 25 mg 25 mg, Oral, Every 6 hours PRN, Starting on Thu09/14/22 at 1928, Until 09/20/22 at 2031, Routine, anxiety 1315 (Given - Provider: Brooke Shook LPN)2300 (Given - Provider: Jose Arango) 0449 (Given - Provider: Jose Arango)1321 (Given - Provider: Kallie Bender RN) oxyCODONE (Roxicodone) immediate release tablet 10 mg(Linked Group 1) 10 mg, Oral, Every 4 hours PRN, Starting on Thu09/17/22 at 1602, Until 09/20/22 at 203, Routine, moderate pain 0434 (See Alternative - Provider: Vane Madrid RN)0841 (See Alternative - Provider: Brooke Shook LPN)1315 (See Alternative - Provider: Brooke Shook LPN)1318 (Not Given - Provider: Brooke Shook LPN - Reason: Hold for condition: must add comment - Comment: given 20 mg not 10)1640 (See Alternative - Provider: Brooke Shook LPN)2029 (Given - Provider: Jose Arango)2050 (See Alternative - Provider: Jose Arango) 0042 (See Alternative - Provider: Jose Arango)0839 (See Alternative - Provider: Kallie Bender RN)1234 (See Alternative - Provider: Kallie Bender, CHANDNI)1713 (See Alternative - Provider: Kallie Bender RN)2122 (See Alternative - Provider: Jose Arango) 0142 (See Alternative - Provider: Lubna Abrams RN)0600 (See Alternative - Provider: Jose Arango)0954 (See Alternative - Provider: Kallie Bender RN)1436 (See Alternative - Provider: Kallie Bender RN) oxyCODONE (Roxicodone) immediate release tablet 20 mg(Linked Group 1) 20 mg, Oral, Every 4 hours PRN, Starting on Thu09/17/22 at 1602, Until 09/20/22 at 2031, Routine, severe pain 0434 (Given - Provider: Vane Madrid RN)0841 (Given - Provider: Brooke Shook LPN)1315 (Given - Provider: Brooke Shook LPN)1318 (See Alternative - Provider: Brooke Shook LPN)1640 (Given - Provider: Brooke Shook LPN)2028 (See Alternative - Provider: Jose Arango)2049 (Given - Provider: Jose Arango - Comment: gave another 10 mg tab to equal 20 mg total per order and pt request for 20 mg.) 0042 (Given - Provider: Jose Arango)0839 (Given - Provider: Kallie Bender RN)1234 (Given - Provider: Kallie Bender RN)1713 (Given - Provider: Kallie Bender RN)2122 (Given - Provider: Jose Arango) 0142 (Given - Provider: Lubna Abrams RN)0600 (Given - Provider: Jose Arango)0954 (Given - Provider: Kallie Bender RN)1436 (Given - Provider: Kallie Bender RN) pancrelipase (Creon) 23374 units capsule 1 capsule, Oral, As needed, Starting on Thu09/17/22 at 1017, Until 09/20/22 at 2031, Routine, snacks prochlorperazine (Compazine) injection 2.5 mg 2.5 mg, Intravenous, Every 4 hours PRN, Starting on Thu09/17/22 at 1900, Until 09/20/22 at 2031, Routine, nausea, vomiting 0434 (Given - Provider: Vane Madrid RN)1526 (Given - Provider: Brooke Shook LPN) 0539 (Given - Provider: Jose Arango)1234 (Given - Provider: Kallie Bender RN)2127 (Given - Provider: Jose Arango) sodium chloride 0.9 % flush 10 mL(Linked Group 2) 10 mL, Intravenous, Every 8 hours PRN, Starting on 09/14/22 at 0323, Until 09/20/22 at 2031, Routine, line care sodium chloride 0.9 % flush 10 mL(Linked Group 2) 10 mL, Intravenous, As needed, Starting on 09/14/22 at 0323, Until 09/20/22 at 2031, Routine, line care Linked Groups Order Group 1: oxyCODONE (Roxicodone) immediate release tablet 10 mgJump to med 10 mg, Oral, Every 4 hours PRN, Starting on Thu09/17/22 at 1602, Until 09/20/22 at 2031, Routine, moderate pain Or oxyCODONE (Roxicodone) immediate release tablet 20 mgJump to med 20 mg, Oral, Every 4 hours PRN, Starting on Thu09/17/22 at 1602, Until 09/20/22 at 2031, Routine, severe pain Group 2: Insert peripheral IV (COMPLETED) Once, On 09/14/22 at 0324, For 1 occurrence And Saline lock IV (COMPLETED) Once, On Thu09/14/22 at 0324, For 1 occurrence And sodium chloride 0.9 % flush 10 mLJump to med 10 mL, Intravenous, Every 8 hours PRN, Starting on 09/14/22 at 0323, Until 09/20/22 at 2031, Routine, line care And sodium chloride 0.9 % flush 10 mLJump to med 10 mL, Intravenous, As needed, Starting on 09/14/22 at 0323, Until 09/20/22 at 2031, Routine, line care documented in this encounter Additional Health Concerns Infection Onset Date Last Indicated Resolved Time COVID-19 Rule-Out 09/18/2022 09/18/2022 09/18/2022 3:18 PM EDT Respiratory Rule-Out 09/19/2022 09/18/2022 023 12:55 PM EDT COVID-19 Rule-Out 09/19/2022 09/19/2022 09/19/2022 4:20 PM EDT Assessment Noted Time A fall risk assessment has been complete d for the patient 11/21/2020 2:30 PM EDT documented as of this encounter Care Teams Semiconductor Wafers Marker Relationship Specialty Start Date End Date Elmo Escobar MD PCP - General 10/18/20 01/05/23 documented as of this encounter
--- OUTSIDE RECORDS SUMMARY | 2024-02-03 15:20 | XMS_ITS | Encounter Summary ---
Author Organization Healthcare Address [address] [place] [address] Care Team Providers Care Clinical Tech Name Role Phone Elmo Escobar MD Primary Care Provider [phone] Encounter Details Date Type Department Care Team (Latest Contact Info) Description 09/25/2022 Travel Social History Tobacco Use Types Packs/Day [...] first t caleb in the morning (EYE-DIRECTOR STRATEGIC ACCOUNT MANAGEMENT) to steady your nerves or to get [...] documented as of this encounter Care Teams Clinical Tech Relationship Specialty Start Date End Date Elmo Escobar MD PCP - General 10/18/20 01/05/23 documented as of this encounter
--- OUTSIDE RECORDS SUMMARY | 2024-02-03 15:21 | XMS_ITS | Encounter Summary ---
Author Organization Healthcare Address [address] [place] [address] Care Team Providers Care Electrodynamicist Name Role Phone Elmo Escobar MD Primary Care Provider [phone] Encounter Details Date Type Department Care Team (Latest Contact Info) Description 06/19/2022 Travel Social History Tobacco Use Types Packs/Day Years Used Date Smoking Tobacco: Every Day Cigarettes 1 15 Smokeless Tobacco: Never Alcohol Use Standard Drinks/Week Comments Not Currently 0 (1 standard drink = 0.6 oz pure alcohol) Alcoholic Drinks/day: Minimum alcohol consumption PHQ-2 Answer Date Recorded Patient Health Questionnaire-2 Score 2 11/21/2020 CAGE ASSESSMENT Answer Date Recorded Cage unable to access Not on file 03/22/2022 Cage max number of drinks Not on file 2022 Cage Beverages a week Not on file 03/22/2022 Have you ever felt you should CUT down on your d rinking? 0 03/22/2022 Have you been ANNOYED by people criticizing your drinking? 0 03/22/2022 Have you felt GUILTY about your drinking? 0 03/22/2022 Have you had a drink first t caleb in the morning (EYE-PROFESSIONAL EMPLOYER CONSULTANT) to steady your nerves or to get rid of a hangover? 0 03/22/2022 CAGE Questionnaire Score 0 023 Comments No Sex and Gender Information Value Date Recorded Sex Assigned at Female 11/30/2020 9:14 AM EDT Legal Sex Female 8:12 PM EDT Gender Identity Female 11/30/2020 9:14 AM EDT Sexual Orientation Straight 11/30/2020 9: 14 AM EDT COVID-19 Exposure Response Date Recorded In the last 10 days, have yo u been in contact with someone who was confirmed or suspected to have Coronavirus/COVID-19? No / Unsure 06/14/2022 12:30 PM EDT documented as of this encounter Plan of Treatment Not on file documented as of this encounter Visit Diagnoses Not on filedocumented in this encounter Additional Health Concerns Assessment Noted Time A fall risk assessment has been complete d for the patient 11/21/2020 2:30 PM EDT documented as of this encounter Care Teams Electrodynamicist Relationship Specialty Start Date End Date Elmo Escobar MD PCP - General 10/18/20 01/05/23 documented as of this encounter
--- OUTSIDE RECORDS SUMMARY | 2024-02-03 15:21 | XMS_ITS | Encounter Summary ---
Author Organization Healthcare Address [address] [place] [address] Care Team Providers Care Business Developer Name Role Phone Elmo Escobar MD Primary Care Provider [phone] Encounter Details Date Type Department Care Team (Latest Contact Info) Description 07/22/2022 Travel Social History Tobacco Use Types Packs/Day [...] first t caleb in the morning (EYE-CAR SUPERVISOR) to steady your nerves or to [...] as of this encounter Care Teams Business Developer Relationship Specialty Start Date End Date Elmo Escobar MD PCP - General 10/18/20 01/05/23 documented as of this encounter
--- OUTSIDE RECORDS SUMMARY | 2024-02-03 15:21 | XMS_ITS | Encounter Summary ---
Author Organization Healthcare Address [address] [place] [address] Care Team Providers Care Chart Calculator Name Role Phone Elmo Escobar MD Primary Care Provider [phone] Tiffanie Gonzalez LPN Unavailable Unavailabl e Encounter Details Date Type Department Care Team (Latest Contact Info) Description 06/23/2022 Travel Social History Tobacco Use Types Packs/Day [...] drink first t caleb in the morning (EYE-CRAYON MOLDING MACHINE OPERATOR) to steady your nerves or [...] documented as of this encounter Care Teams Chart Calculator Relationship Specialty Start Date End Date Elmo Escobar MD PCP - General 10/18/20 01/05/23 Tiffanie Gonzalez, NAIN VALUE-[employer]ED [place] [address] Care Coordination Nurse 06/20/2207/18 documented as of this encounter
--- OUTSIDE RECORDS SUMMARY | 2024-02-03 15:21 | XMS_ITS | Encounter Summary ---
Author Organization Healthcare Address [address] [place] [address] Care Team Providers Care Ms Sql Server Developer Name Role Phone Elmo Escobar MD Primary Care Provider [phone] Tiffanie Gonzalez LPN Unavailable Unavailabl e Encounter Details Date Type Department Care Team (Latest Contact Info) Description 07/10/2022 Travel Social History Tobacco Use Types Packs/Day [...] drink first t caleb in the morning (EYE-ARCHITECTURAL ADMINISTRATIVE ASSISTANT) to steady your nerves or to [...] documented as of this encounter Care Teams Ms Sql Server Developer Relationship Specialty Start Date End Date Elmo Escobar MD PCP - General 10/18/20 01/05/23 Tiffanie Gonzalez, NAIN VALUE-BASED TRANSFORMATION [place] [address] Care Coordination Nurse 06/20/2207/18 documented as of this encounter
--- OUTSIDE RECORDS SUMMARY | 2024-02-03 15:21 | XMS_ITS | Encounter Summary ---
Author Organization Healthcare Address [address] [place] [address] Care Team Providers Care Manager Pediatric Name Role Phone Elmo Escobar MD Primary Care Provider [phone] Encounter Details Date Type Department Care Team (Latest Contact Info) Description 09/15/2022 Travel Social History Tobacco Use Types Packs/Day [...] drink first t caleb in the morning (EYE-REFINERY OPERATOR HELPER) to steady your nerves or to [...] as of this encounter Care Teams Manager Pediatric Relationship Specialty Start Date End Date Elmo Escobar MD PCP - General 10/18/20 01/05/23 documented as of this encounter
--- OUTSIDE RECORDS SUMMARY | 2024-02-03 15:21 | XMS_ITS | Encounter Summary ---
Author Organization Healthcare Address [address] [place] [address] Care Team Providers Care Process Laboratory Specialist Name Role Phone Elmo Escobar MD Primary Care Provider [phone] Reason for Visit * Reason Comments Abdominal Pain Encounter Details Date Type Department Care Team (Late st Contact Info) Description 08/08/2022 7:56 PM EDT - 08/09/2022 12:10 AM EDT Emergency [facility] Emergency Department [address] [place] [address] Abdominal pain, epigastric (Primary Dx); Chronic pancreatitis, unspecified pancreatitis type [...] drink first t caleb in the morning ([employer]) to steady your nerves or to [...] Sign Reading Time Taken Comments Blood Pressure 138/81 08/09/2022 12:10 AM EDT Pulse 93 08/09/2022 12:10 AM EDT Temperature 36.6 ??C (97.9 ??F) 08/09/2022 12:10 AM E DT Respiratory Rate 14 08/09/2022 12:10 AM EDT Oxygen Saturation 97% 08/09/2022 12:10 AM EDT Inhaled Oxygen Concentration - - Weight 112 kg (247 lb 12.8 oz) 08/08/2022 7:50 P M EDT Height - - Body Mass Index 41.24 07/19/2022 6:00 PM EDT documented in this encounter Discharge Instructions * Discharge Instructions* Emily Dominguez PA - 08/08/2022 11:43 PM EDT Medications as directed. Return to ER for any worsening symptoms including increased pain, vomiting, diarrhea, fever, or any other concerning symptoms. Follow-up with your PCP on Thursday. * Attachments The following attachments cannot be sent through Care Everywhere. * Pancreatitis, Chronic, Discharge Instructions for (Khmer) documented in this encounter Medications at Time of Discharge celecoxib (CeleBREX) 200 MG capsule Take 1 capsule (200 mg) by mouth 2 (two) times a day. 60 capsule 07/24/2022 3 melatonin 3 MG tablet Take 2 tablets (6 mg) by mouth at night if needed for sleep. 30 tablet 07/24/2022 3 oxyCODONE-acetam inophen (Percocet) 10-325 MG tablet Take 1 tablet by mouth every 6 (six) hours if needed for severe pain for up to 3 days. 11 tablet 08/08/2022 3 pantoprazole (Protonix) 40 MG EC tablet Take 1 tablet (40 mg) by mouth 1 (one) time each day. Do not crush, chew, or split. 30 tablet 11 07/24/2022 3 Alum & Mag Hydroxide-Simeth (ANTACID LIQUID PO) Take 20 mL by mouth every night. 3 amitriptyline (Elavil) 25 MG tablet Take 1 tablet (25 mg) by mouth every night. 30 tablet 11 07/24/2022 3 diphenhydrAMINE (BENADryl) 50 MG tablet Take 50 mg by mouth at night if needed for itching. 3 hydrOXYzine pamoate (Vistaril) 50 MG capsule Take 1 capsule (50 mg) by mouth every 6 (six) hours if needed for anxiety for up to 10 days. 30 capsule 07/24/2022 3 ibuprofen 200 MG tablet Take 3 tablets (600 mg) by mouth every 6 (six) hours if needed for mild pain. 3 naloxone (Narcan) 4 mg/0.1 mL nasal spray 1. Give 1 spray in nostril for no/slow breathing or cannot wake after opioid use 2. Call 911 3. Repeat in other nostril if symptoms continue Use 1 each 07/24/2022 3 pregabalin (Lyrica) 100 MG capsule Take 1 capsule (100 mg) by mouth 3 (three) times a day. 4 promethazine (Phenergan) 25 MG tablet Take 1 tablet (25 mg) by mouth every 8 (eight) hours if needed for nausea or vomiting for up to 11 doses. 11 tablet 08/08/2022 3 documented as of this encounter Miscellaneous Notes * ED Provider Notes - Emily Dominguez PA - 08/08/2022 7:43 PM EDT - HPI Chief Complaint Patient presents with Abdominal Pain This a 36-year-old female who presents with epigastric abdominal pain with radiation to the back. The patient tells me that she has a history of chronic pancreatitis and will have episodes of acute pancreatitis. This feels similar to those previous episodes. Patient reports she has had vomiting anddiarrhea today as well. Patient states this is similar to her previous episodes of chronic pancreatitis. Patient denies any fever. No data recorded Patient History Past Medical [...] of Systems Constitutional: Positive for appetite change. HENT: Negative. Eyes: Negative. Respiratory: Negative. Cardiovascular: Negative. Gastrointestinal: Positive for abdominal pain, diarrhea, nausea and vomiting. Endocrine: Negative. Genitourinary: Negative. Musculoskeletal: Negative. Skin: Negative. Neurological: Negative. Psychiatric/Behavioral: Negative. Physical Exam ED Triage Vitals [08/08/22 1950] Temp Heart Rate Resp BP 37.3 ??C (99.1 ??F) (!) 126 18 (!) 161/84 SpO2 Temp Source Heart Rate Source Patient Position 96 % Oral -- -- BP Location FiO2 (%) -- -- Physical Exam Constitutional: General: She is not in acute distress. Appearance: She is well-developed. She is not ill-appearing. HENT: Head: Normocephalic and atraumatic. Cardiovascular: Rate and Rhythm: Regular rhythm. Tachycardia present. Heart sounds: Normal heart sounds. Pulmonary: Breath sounds: Normal breath sounds. Abdominal: Palpations: Abdomen is soft. Tenderness: There is abdominal tenderness in the epigastric area. Skin: General: Skin is warm and dry. Capillary Refill: Capillary refill takes less than 2 seconds. Neurological: General: No focal deficit present. Mental Status: She is alert. Psychiatric: Mood and Affect: Mood normal. ED Course & MDM Clinical Impressions as of 08/09/2215 Abdominal pain, epigastric Chronic pancreatitis, unspecified pancreatitis type (CMS/HCC) Medical Decision Making Patient was evaluated Sheyla Dominguez PA-C and discussed with Dr. Ramos. History was obtained from the patient. In summary this is a 36-year-old female who presents with epigastric abdominal pain with radiation to the back who has a history of pancreatitis. Patient also reports vomiting and diarrhea with this episode. Includes but is not limited to pancreatitis, gastritis, endometriosis. Patient was given IV fluid bolus. She was given IV Phenergan as well as IV Dilaudid here in the ER. Labs were obtained CBC does not show any significant abnormality. Lipase is 198. CMP shows glucose of 63 but no other significant abnormality. Patient was given IV dextrose for her blood sugar. Patient was offeredadmission for elevated lipase but she elected to be treated at home. Patient was discharged home with prescription for short course of oxycodone as well as Phenergan. Patient was encouraged to returnto the ER for any worsening symptoms and to follow-up with her PCP on Thursday. Patient verbalized understanding my instructions. ED Prescriptions None Sign Off Checklist Clinical Impression: Complete ED Disposition: Complete - Emily Dominguez PA 08/09/2216 Cosigned by Kayla Ramos MD at 08/09/2022 12:34 AM EDT Associated attestation - Kayla Ramos MD - 08/09/2022 12:34 AM EDT The patient was seen only by Advanced Practice Provider (AJAY), and care was reviewed with me. * ED Triage Notes - Juyl Ortiz RN - 08/08/2022 7:43 PM EDT Pt reports acute on chronic abd pain d/t chronic pancreatitis x3 days. Says she has taken zofran for N/V, says it is no longer worker. +N/V/D Reports virgil BEASLEY wants to go another EGD and ERCT. documented in this encounter Plan of Treatment Not on file documented as of this encounter Procedures Procedure Name Priority Date/Time Associated Diagnosis Comments CBC WITH AUTO DIFFERENTIAL STAT 08/08/2022 9:13 PM EDT LIPASE, PLASMA STAT 08/08/2022 9:13 PM EDT COMPREHENSIVE METABOLIC PANEL, PLASMA STAT 08/08/2022 9:13 PM EDT documented in this encounter Results * (ABNORMAL) Lipase (08/08/2022 9:13 PM EDT) Lipase, Plasma 198(H) 19 - 63 U/L 08/08/2022 9:44 PM EDT [facility] Blood Venous blood specimen / Unknown Venipuncture / Unknown 08/08/2022 9:13 PM EDT 08/08/2022 9:18 PM EDT us Emily NAJERA LAB BLOOD ORDERABLES Final Resu lt [facility] [address] [place] [address] * (ABNORMAL) CMP (08/08/2022 9:13 PM EDT) Glucose, Plasma 63(L) 74 - 99 mg/dL 08/08/2022 9:44 PM EDT [facility] BUN, Plasma 10 7 - 21 mg/dL 08/08/2022 9:44 PM EDT [facility] Creatinine, Plasma 0.59(L) 0.60 - 1.10 mg/dL 08/08/2022 9:44 PM EDT [facility] BUN/Creatinine Ratio 17 08/08/2022 9:44 PM EDT [facility] Sodium, Plasma 139 136 - 145 mmol/L 08/08/2022 9:44 PM EDT [facility] Potassium, Plasma 3.7 3.7 - 4.8 mmol/L 08/08/2022 9:44 PM EDT [facility] Chloride, Plasma 105 97 - 107 mmol/L 08/08/2022 9:44 PM EDT [facility] CO2, Plasma 20(L) 22 - 29 mmol/L 08/08/2022 9:44 PM EDT [facility] Anion Gap 14 6 - 16 mmol/L 08/08/2022 9:44 PM EDT [facility] Total Calcium, Plasma 9.3 8.9 - 10.2 mg/dL 08/08/2022 9:44 PM EDT [facility] Total Protein 7.3 6.3 - 7.9 g/dL 08/08/2022 9:44 PM EDT [facility] Albumin, Plasma 4.3 3.5 - 5.2 g/dL 08/08/2022 9:44 PM EDT [facility] AST, Plasma 15 11 - 32 U/L 08/08/2022 9:44 PM EDT [facility] ALT, Plasma 15 8 - 33 U/L 08/08/2022 9:44 PM EDT [facility] Alkaline Phosphatase, Plasma 106(H) 35 - 104 U/L 08/08/2022 9:44 PM EDT [facility] Total Bilirubin, Plasma <0.2(L) 0.2 - 1.1 mg/dL 08/08/2022 9:44 PM EDT [facility] eGFRcr 120.7 mL/min/1.7 3m*2 08/08/2022 9:44 PM EDT [facility] Comment: Reported eGFRcr in mL/min/1.73m2 is based the CKD-EPI 2021 equation that does not use a race coefficient. Effective 09/18/21 our laboratory changed the eGFR calculation to the CKD-EPI 2021 equation from the previously reported eGFR, based on the MDRD equation. ??For comparisons between the two equations, please see laboratory website: ??[email or web address] Blood Venous blood specimen / Unknown Venipuncture / Unknown 08/08/2022 9:13 PM EDT 08/08/2022 9:18 PM EDT us Emily NAJERA LAB BLOOD ORDERABLES Final Resu lt [facility] [address] [place] [address] * (ABNORMAL) CBC w/diff (08/08/2022 9:13 PM EDT) WBC Count 9.21 3.70 - 10.30 10*3/uL LAB HEMATOLOGY METHOD 08/08/2022 9:20 PM EDT [facility] RBC Count 4.32 3.90 - 5.20 10*6/uL LAB HEMATOLOGY METHOD 08/08/2022 9:20 PM EDT [facility] HGB 11.7 11.2 - 15.7 g/dL LAB HEMATOLOGY METHOD 08/08/2022 9:20 PM EDT [facility] HCT 35.9 34.0 - 45.0 % LAB HEMATOLOGY METHOD 08/08/2022 9:20 PM EDT [facility] Platelet Count 267 155 - 369 10*3/uL LAB HEMATOLOGY METHOD 08/08/2022 9:20 PM EDT [facility] MCV 83 79 - 98 fL LAB HEMATOLOGY METHOD 08/08/2022 9:20 PM EDT [facility] MCH 27.1 26.0 - 32.0 pg LAB HEMATOLOGY METHOD 08/08/2022 9:20 PM EDT [facility] MCHC 32.6 30.7 - 35.5 g/dL LAB HEMATOLOGY METHOD 08/08/2022 9:20 PM EDT [facility] RDW 14.6(H) 11.5 - 14.5 % LAB HEMATOLOGY METHOD 08/08/2022 9:20 PM EDT [facility] MPV 10.0 8.8 - 12.5 fL LAB HEMATOLOGY METHOD 08/08/2022 9:20 PM EDT [facility] nRBC 0.0 <=0.0 per 100 WBCs LAB HEMATOLOGY METHOD 08/08/2022 9:20 PM EDT [facility] Differential Type Automated LAB HEMATOLOGY METHOD 08/08/2022 9:20 PM EDT [facility] Neutrophils % 60.0 % LAB HEMATOLOGY METHOD 08/08/2022 9:20 PM EDT [facility] Lymphocytes % 29.0 % LAB HEMATOLOGY METHOD 08/08/2022 9:20 PM EDT [facility] Monocytes % 7.0 % LAB HEMATOLOGY METHOD 08/08/2022 9:20 PM EDT [facility] Eosinophils % 2.0 % LAB HEMATOLOGY METHOD 08/08/2022 9:20 PM EDT [facility] Basophils % 1.0 % LAB HEMATOLOGY METHOD 08/08/2022 9:20 PM EDT [facility] Immature Granulocytes % 1.0 % LAB HEMATOLOGY METHOD 08/08/2022 9:20 PM EDT [facility] Neutrophils Absolute 5.59 1.60 - 6.10 10*3/uL LAB HEMATOLOGY METHOD 08/08/2022 9:20 PM EDT [facility] Lymphocytes Absolute 2.65 1.20 - 3.90 10*3/uL LAB HEMATOLOGY METHOD 08/08/2022 9:20 PM EDT [facility] Monocytes Absolute 0.65 0.30 - 0.90 10*3/uL LAB HEMATOLOGY METHOD 08/08/2022 9:20 PM EDT [facility] Eosinophils Absolute 0.17 0.00 - 0.50 10*3/uL LAB HEMATOLOGY METHOD 08/08/2022 9:20 PM EDT [facility] Basophils Absolute 0.08 0.00 - 0.10 10*3/uL LAB HEMATOLOGY METHOD 08/08/2022 9:20 PM EDT [facility] Immature Granulocytes Absolute 0.07(H) 0.00 - 0.06 10*3/uL LAB HEMATOLOGY METHOD 08/08/2022 9:20 PM EDT [facility] Blood Venous blood specimen / Unknown Venipuncture / Unknown 08/08/2022 9:13 PM EDT 08/08/2022 9:18 PM EDT Narrative [facility] - 08/08/2022 9:20 PM EDT Therapeutic decision making should be based on absolute values, rather than percentages. us Emily NAJERA LAB BLOOD ORDERABLES Final Resu lt [facility] [address] [place] [address] documented in this encounter Visit Diagnoses Diagnosis Abdominal pain, epigastric- Primary Chronic pancreatitis, unspecified pancreatitis type (CMS/HCC) documented in this encounter Administered Medications Inactive Administered Medications - up to 3 most recent administrations Medication Order MAR Action Action Date Dose Rate Site dextrose 10 % (D10W) bolus 250 mL 250 mL, Intravenous, Once, 1 dose, On Thu08/08/22 at 2225, Administer over 15 Minutes, Routine New Bag 08/08/2022 10:35 PM EDT 250 mL 1000 mL/hr HYDROmorphone (Dilaudid) injection 0.5 mg 0.5 mg, Intravenous, Once, 1 dose, On Thu08/08/22 at 2020, STAT Given 08/08/2022 9:39 PM EDT 0.5 mg HYDROmorphone (Dilaudid) injection 1 mg 1 mg, Intravenous, Once, 1 dose, On Thu08/08/22 at 2225, STAT Given 08/08/2022 10:35 PM EDT 1 mg lactated Ringer's infusion 1,000 mL 1,000 mL, Intravenous, Once, 1 dose, On Thu08/08/22 at 2020, STAT New Bag 08/08/2022 9:38 PM EDT 1,000 mL prochlorperazine (Compazine) injection 10 mg 10 mg, Intravenous, Once, 1 dose, On Thu08/08/22 at 2020, STAT Given 08/08/2022 9:39 PM EDT 10 mg documented in this encounter Active and Recently Administered Medications Times are shown in EDT. Scheduled Medication Order 08/07/2022 08/08/2022 08/09/2022 dextrose 10 % (D10W) bolus 250 mL (COMPLETED) 250 mL, Intravenous, Once, 1 dose, On Thu08/08/22 at 2225, Administer over 15 Minutes, Routine 223 (New Bag - Provider: Angela Almanzar RN) 0010 (Stopped - Provider: Angela Almanzar, RN) HYDROmorphone (Dilaudid) injection 0.5 mg (COMPLETED) 0.5 mg, Intravenous, Once, 1 dose, On Thu08/08/22 at 2020, STAT 213 (Given - Provider: Angela Almanzar, CHANDNI) HYDROmorphone (Dilaudid) injection 1 mg (COMPLETED) 1 mg, Intravenous, Once, 1 dose, On Thu08/08/22 at 2225, STAT 223 (Given - Provider: Angela Almanzar, RN) lactated Ringer's infusion 1,000 mL (COMPLETED) 1,000 mL, Intravenous, Once, 1 dose, On Thu08/08/22 at 2020, STAT 213 (New Bag - Provider: Angela Almanzar RN) 0010 (Stopped - Provider: Angela Almanzar, CHANDNI) prochlorperazine (Compazine) injection 10 mg (COMPLETED) 10 mg, Intravenous, Once, 1 dose, On Thu08/08/22 at 2020, STAT 2139 (Given - Provider: Angela Almanzar, CHANDNI) documented in this encounter Additional Health Concerns Assessment Noted Time A fall risk assessment has been complete d for the patient 11/21/2020 2:30 PM EDT documented as of this encounter Care Teams Process Laboratory Specialist Relationship Specialty Start Date End Date Elmo Escobar MD PCP - General 10/18/20 01/05/23 documented as of this encounter
--- OUTSIDE RECORDS SUMMARY | 2024-02-03 15:21 | XMS_ITS | Encounter Summary ---
Author Organization Healthcare Address [address] [place] [address] Care Team Providers Care Test Operator Name Role Phone Elmo Escobar MD Primary Care Provider [phone] Reason for Visit * Reason Comments Abdominal Pain * Auth/Cert (Routine) Specialty Diagnoses / Procedures Referred By Contmary t Referred To Contact Diagnoses Acute on chronic pancreatitis (CMS/HCC) Jermain Sales MD [address] [place] [id number] Phone: tel: fax: [facility] [address] [place] [address] Phone: tel: Referral ID Status Reason Start Date Expiration Date Visits Re quested Visits Authorized [id number] 1 1 Encounter Details Date Type Department Care Team (Latest Contact Info) Description 07/19/2022 11:48 AM EDT - 07/24/2022 12:58 PM EDT Hospital Encounter [facility] [address] [place] [address] Kayla Ramos MD [address] [place] [address] Jermain Sales MD [address] [place] [address] Sosa Reyes MD [address] [place] [id number] WheatNadja Gilberto, DO [address] [place] [address] Acute on chronic pancreatitis (CMS/HCC) [...] drink first t caleb in the morning (EYE-WEAVING INSPECTOR) to steady your nerves or to [...] Sign Reading Time Taken Comments Blood Pressure 138/86 07/24/2022 7:32 AM EDT Pulse 81 07/24/2022 7:32 AM EDT Temperature 36.6 ??C (97.8 ??F) 07/24/2022 7:32 AM ED T Respiratory Rate 16 07/24/2022 7:32 AM EDT Oxygen Saturation 100% 07/24/2022 7:32 AM EDT Inhaled Oxygen Concentration - - Weight 112 kg (247 lb 12.8 oz) 07/24/2022 5:58 A M EDT Height 165.1 cm (5' 5 ) 07/19/2022 6:00 PM EDT Body Mass Index 41.24 07/19/2022 6:00 PM EDT documented in this encounter Discharge Instructions * Discharge Instructions* Francesca Perdomo MD - 07/24/2022 10:33 AM EDT Come back to the ED if vomiting for several hours or unable to tolerate oral hydration Follow up with DR escobar tomorrow Find a good place for therapy around home :) Continue your medications * Attachments The following attachments cannot be sent through Care Everywhere. * Acute Pancreatitis, Discharge Instructions for (Ghanaian) * Anxiety, Your Body's Response to (Ghanaian) documented in this encounter Medications at Time of Discharge acetaminophen (Tylenol) 500 MG tablet Take 2 tablets (1,000 mg) by mouth every 6 (six) hours if needed for headaches or pain for up to 10 days. 25 tablet 07/24/2022 3 celecoxib (CeleBREX) 200 MG capsule Take 1 capsule (200 mg) by mouth 2 (two) times a day. 60 capsule 07/24/2022 3 melatonin 3 MG tablet Take 2 tablets (6 mg) by mouth at night if needed for sleep. 30 tablet 07/24/2022 3 ondansetron ODT (Zofran-ODT) 4 MG disintegrating tablet Take 1 tablet (4 mg) by mouth every 8 (eight) hours if needed for nausea or vomiting for up to 7 days. 20 tablet 07/24/2022 3 pancrelipase, Ksd-Lkgw-Bwmf, (Creon) 6000-45871 units capsule Take 2 capsules by mouth 3 (three) times a day with meals for 10 days. 60 capsule 07/24/2022 3 pantoprazole (Protonix) 40 MG EC tablet Take 1 tablet (40 mg) by mouth 1 (one) time each day. Do not crush, chew, or split. 30 tablet 11 07/24/2022 3 prochlorperazine (Compazine) 5 MG tablet Take 1 tablet (5 mg) by mouth every 6 (six) hours if needed for nausea or vomiting for up to 7 days. 30 tablet 07/24/2022 3 sucralfate (Carafate) 1 GM/10ML suspension Take 10 mL (1 g) by mouth 4 (four) times a day for 10 days. 400 mL 07/24/2022 3 traMADol (Ultram) 50 MG tablet Take 2 tablets (100 mg) by mouth every 6 (six) hours if needed for severe pain for up to 5 days. 40 tablet 07/24/2022 3 Alum & Mag Hydroxide-Simeth (ANTACID [...] 4 promethazine (Phenergan) 25 MG tablet Take 25 mg by mouth every 6 (six) hours if needed. 12/15/2021 3 documented as of this encounter Miscellaneous Notes * Addendum Note - Veda Fowler - 07/24/2022 12:58 PM EDTEncounter addended by: Veda Fowler on: 08/13/2022 11:52 AM Actions taken: Flowsheet accepted * Progress Notes - Suzi Shields - 07/24/2022 12:58 PM EDT Case Management Discharge Note Rosibel Gayle 36 y.o. female CSN: [id number] Admission: 07/19/2022 11:48 AM Primary Problem: Acute on chronic pancreatitis (CMS/HCC) Primary Emotionally Impaired Teacher: Self Assistance Available at Discharge: Current Outpatient/Agency/Support [...] none Readmission Within the Last 30 Days: Medicare Documentation: N/A Follow-up: No follow-up provider specified. Discharge Transportation: Transportation Anticipated: family or friend will provide Transportation Home at Discharge: Family/Friend will Provide Has discharge transport been arranged?: Yes What day is the transport expected?: 07/24/22 What time is the transport expected?: 1300 Follow Up Transport: Pt family/fiance Additional Comments: Suzi Shields * Care Plan - Susan Russ RN - 07/24/2022 11:54 AM EDT Problem: Adult Inpatient Plan of Care Goal: Plan of Care Review Outcome: Ongoing, Progressing Flowsheets (Taken 07/24/2022 1154) Progress: improving Plan of Care Reviewed With: [...] Pain Control and Function Outcome: Ongoing, Progressing Goal: Effective Oxygenation and Ventilation Outcome: Ongoing, Progressing * Discharge Summary - Francesca Perdomo MD - 07/24/2022 10:27 AM EDT Images from the original note were not included. Hospitalization Admit Date/Time: 07/19/2022 11:48 AM Admitting Attending: Jermain Sales Discharge Date: 07/24/2022 Discharge Attending Physician: Nadja Wheat Do PCP name and Address: Elmo Escobar MD [facility] / [place] [address] Referring provider name and address: No referring provider defined for this encounter. Chief Concern, Brief History of Present Illness, and Hospital Course 36F with gastritis and chronic pancreatitis, here with epigastric pain, N/V, and elevated lipase with likely acute pancreatitis. HDS. High concerns for opioid dependence. Narcotics are now being weaned. #) Acute on chronic pancreatitis - history and lipase 193 support diagnosis, however CT from 05/2022 does not show evidence of chronic pancreatitis - Lipid panel TG 292 - RUQ US normal - Started creon TID with meals - Continue tylenol and celoxib scheduled - Provided tramadol 100 mg q6h for 5 days -ordered compazine and zofran as needed for nausea to take home - Continue diet to solids, low-fat - continue home PPI since patient is on NSAIDs #Severe Anxiety - Patient has a long history of anxiety - Has not filled lorazepam since April (DAMIAN reviewed) - Patient would like to stop lorazepam Plan for home: - Continue vistaril 50 mg q6h PRN - continue amitriptyline 25 mg at bedtime - Will benefit from outpatient therapy, patient reports she will find a place. #) Concerns for Opioid use disorder Per discharge summary of 05/27/2021: - NO IV OPIATES and NO new SCRIPTs of OPIATES on discharge to patient- PATIENT HAS BEEN CLEARLY EXPLAINED Patient reports she does no want to continue oxycodone at home since it does not hep with her pain Warning was placed in communicator task so ED can seen next time and avoid IV dilaudid unless absolutely necessary #) New onset HTN Was hypertensive in the hospital for a few days however Now normotensive Will discuss tomorrow with Dr Escobar if antihypertensive is needed Transaminitis (improving) - has had cholecystectomy - RUQ US normal - Continue to trend LFTs as outpatient Patient will follow with Lang Escobar tomorrow Surgeries and Procedures Medication List Important This medication list is not yet final, because your doctor or pharmacist is still double-checking some of the changes. Ask your nurse for an updated version. Specifically ask about this and similar medications: traMADol (Ultram) 50 MG tablet .. acetaminophen 500 MG tablet Commonly known as: Tylenol Take 2 tablets (1,000 mg) by mouth every 6 (six) hours if needed for headaches or pain for up to 10days. amitriptyline 25 MG tablet Commonly known as: Elavil Take 1 tablet (25 mg) by mouth every night. ANTACID LIQUID PO Take 20 mL by mouth every night. celecoxib 200 MG capsule Commonly known as: CeleBREX Take 1 capsule (200 mg) by mouth 2 (two) times a day. diphenhydrAMINE 50 MG tablet Commonly known as: BENADryl Take 50 mg by mouth at night if needed for itching. hydrOXYzine pamoate 50 MG capsule Commonly known as: Vistaril Take 1 capsule (50 mg) by mouth every 6 (six) hours if needed for anxiety for up to 10 days. ibuprofen 200 MG tablet Take 200 mg by mouth every 6 (six) hours if needed for mild pain. melatonin 3 MG tablet Take 2 tablets (6 mg) by mouth at night if needed for sleep. naloxone 4 mg/0.1 mL nasal spray Commonly known as: Narcan 1. Give 1 spray in nostril for no/slow breathing or cannot wake after opioid use 2. Call 911 3. Repeat in other nostril if symptoms continue Use ondansetron ODT 4 MG disintegrating tablet Commonly known as: Zofran-ODT Take 1 tablet (4 mg) by mouth every 8 (eight) hours if needed for nausea or vomiting for up to 7 days. pancrelipase (Exh-Nllc-Hhen) 6000-80175 units capsule Commonly known as: Creon Take 2 capsules by mouth 3 (three) times a day with meals for 10 days. pantoprazole 40 MG EC tablet Commonly known as: Protonix Take 1 tablet (40 mg) by mouth 1 (one) time each day. Do not crush, chew, or split. pregabalin 300 MG capsule Commonly known as: Lyrica Take 300 mg by mouth 2 (two) times a day. prochlorperazine 5 MG tablet Commonly known as: Compazine Take 1 tablet (5 mg) by mouth every 6 (six) hours if needed for nausea or vomiting for up to 7 days. promethazine 25 MG tablet Commonly known as: Phenergan Take 25 mg by mouth every 6 (six) hours if needed. sucralfate 1 GM/10ML suspension Commonly known as: Carafate Take 1 g by mouth 4 (four) times a day. traMADol 50 MG tablet Commonly known as: Ultram Take 2 tablets (100 mg) by mouth every 6 (six) hours if needed for moderate pain for up to 5 days. Where to Get Your Medications These medications were sent to [facility] [place] [address] acetaminophen 500 MG tablet amitriptyline 25 MG tablet celecoxib 200 MG capsule hydrOXYzine pamoate 50 MG capsule melatonin 3 MG tablet naloxone 4 mg/0.1 mL nasal spray ondansetron ODT 4 MG disintegrating tablet pancrelipase (Caq-Dinn-Fdcs) 6000-61801 units capsule pantoprazole 40 MG EC tablet prochlorperazine 5 MG tablet Information about where to get these medications is not yet available Ask your nurse or doctor about these medications traMADol 50 MG tablet Discharge Diagnosis Medical Problems Active and Resolved Hospital Problems Hospital * (Principal) Acute on chronic pancreatitis (CMS/HCC) Post Discharge Instructions Follow up with PCP, come back to ED if vomiting and unable to tolerate PO Outpatient Follow-Up No future appointments. Test Results Pending At Discharge Pertinent Physical Exam At Time of Discharge Physical Exam Constitutional: General: She is not in acute distress. Appearance: She is not ill-appearing or diaphoretic. HENT: Head: Normocephalic and atraumatic. Right [...] No wheezing, rhonchi or rales. Abdominal: General: There is no distension. Palpations: Abdomen is soft. Tenderness: There is no abdominal tenderness. There is no guarding. Musculoskeletal: General: No swelling, tenderness, deformity or signs of injury. Cervical back: Neck supple. Right lower leg: No edema. Left lower leg: No edema. Skin: General: Skin is warm and dry. Capillary Refill: Capillary refill takes less than 2 seconds. Coloration: Skin is not pale. Findings: No rash. Neurological: General: No focal deficit present. Mental Status: She is alert and oriented to person, place, and time. Cranial Nerves: No cranial nerve deficit. Sensory: No sensory deficit. Motor: No weakness. Psychiatric: Behavior: Behavior normal. Thought Content: Thought content normal. Discharge Disposition/Condition Disposition: Home Condition: Stable (s/sx potential problems absent or manageable) Francesca Man Internal Medicine Pediatrics PGY-3 Pager [phone] Cosigned by Nadja Wheat DO at 07/24/2022 12:41 PM EDT Associated attestation - Nadja Wheat DO - 07/24/2022 12:41 PM EDT I saw and evaluated the patient with the resident/fellow. I discussed the case with the resident/fellow and agree with the findings and plan as documented. Pain likely multifactorial in the setting of mild acute on chronic pancreatitis, functional dyspepsia/abdominal pain, and uncontolled anxiety, depression, and insomnia. Recommend continue PPI and PRNcarafate, Creon. Patient with improvement on nightly elavil, PRN hydroxyzine, and PRN tramadol. Would continue, monitor for SI with elavil. OP f/u with PCP, GI, psychiatry and psychology. * Hospital Course - Francesca Perdomo MD - 07/24/2022 10:27 AM EDT 36F with gastritis and chronic pancreatitis, here with epigastric pain, N/V, and elevated lipase with likely acute pancreatitis. HDS. High concerns for opioid dependence. Narcotics are now being weaned. #) Acute on chronic pancreatitis - history and lipase 193 support diagnosis, however CT from 05/2022 does not show evidence of chronic pancreatitis - Lipid panel TG 292 - RUQ US normal - Started creon TID with meals - Continue tylenol and celoxib scheduled - Provided tramadol 100 mg q6h for 5 days -ordered compazine and zofran as needed for nausea to take home - Continue diet to solids, low-fat - continue home PPI since patient is on NSAIDs #Severe Anxiety - Patient has a long history of anxiety - Has not filled lorazepam since April (DAMIAN reviewed) - Patient would like to stop lorazepam Plan for home: - Continue vistaril 50 mg q6h PRN - continue amitriptyline 25 mg at bedtime - Will benefit from outpatient therapy, patient reports she will find a place. #) Concerns for Opioid use disorder Per discharge summary of 05/27/2021: - NO IV OPIATES and NO new SCRIPTs of OPIATES on discharge to patient- PATIENT HAS BEEN CLEARLY EXPLAINED Patient reports she does no want to continue oxycodone at home since it does not hep with her pain Warning was placed in communicator task so ED can seen next time and avoid IV dilaudid unless absolutely necessary #) New onset HTN Was hypertensive in the hospital for a few days however Now normotensive Will discuss tomorrow with Dr Escobar if antihypertensive is needed Transaminitis (improving) - has had cholecystectomy - RUQ US normal - Continue to trend LFTs as outpatient Patient will follow with Nr Neus tomorrow * Care Plan - Paige Rodriguez - 07/24/2022 1:56 AM EDT Problem: Adult Inpatient Plan of Care Goal: Plan of Care Review Outcome: Ongoing, Progressing Problem: Adult Inpatient Plan of Care Goal: Patient-Specific Goal (Individualized) Outcome: Ongoing, Progressing Problem: Adult Inpatient Plan [...] Pain Control and Function Outcome: Ongoing, Progressing Goal: Effective Oxygenation and Ventilation Outcome: Ongoing, Progressing * Progress Notes - Francesca Perdomo MD - 07/23/2022 12:19 PM EDT Images from the original note were not included. Hospital Medicine Progress Note Subjective Length of stay: 4 days Brief Patient Summary: 36F with gastritis and chronic pancreatitis, here with epigastric pain, N/V, and elevated lipase with likely acute pancreatitis. HDS Patient reports she had a good night. Mother and sons in the room. Patient reports she would like to stay one more day in the hospital and go back home tomorrow. She is going to find a psychiatrist to manage her anxiety and will start therapy. She likes the new medications she is on and will followup with PCP as soon as she is discharged. Review of Systems: Denies fever, chills, chest pain, dyspnea, nausea, and vomiting. Objective: Blood pressure 121/84, pulse 80, temperature 36.3 ??C (97.4 ??F), resp. rate 16, height 1.651 m (5'5 ), weight 112 kg (247 lb 5.7 oz), SpO2 95 %, not currently . Physical Exam: Vitals reviewed. Constitutional: Appearance: Normal appearance. Obese HENT: Head: Normocephalic and atraumatic. Right Ear: [...] no distension. Palpations: Abdomen is soft. Tenderness: No tenderness. There is no guarding or rebound. Musculoskeletal: General: Normal range of motion. Cervical back: Normal range of motion. Skin: General: Skin is warm and dry. Capillary Refill: Capillary refill takes less than 2 seconds. Neurological: General: No focal deficit present. Mental Status: She is alert and oriented to person, place, and time. Psychiatric: Mood and Affect: Tearful Thought Content: Thought content normal. Judgment: Judgment appropriate Hospital Medications: Scheduled: acetaminophen, 1,000 mg, Oral, q6h INO amitriptyline, 25 mg, Oral, Nightly celecoxib, 200 mg, Oral, BID enoxaparin, 40 mg, Subcutaneous, Daily pancrelipase (Pin-Irnz-Wenb), 2 capsule, Oral, TID with meals pantoprazole, 40 mg, Oral, BID pregabalin, 300 mg, Oral, BID Continuous: As needed: hydrOXYzine pamoate, 50 mg, q6h PRN melatonin, 6 mg, Nightly PRN ondansetron ODT, 4 mg, q6h PRN prochlorperazine, 5 mg, q6h PRN sodium chloride, 10 mL, q8h PRN And sodium chloride, 10 mL, PRN traMADol, 50 mg, q6h PRN Or traMADol, 100 mg, q6h PRN Data: Labs (in last 24 hours): CBC: No results found for: WBC, RBC, HGB, HCT, PLT, MCV, MCH, MCHC, RDW, NRBC Differential: No results found for: WBC, NEUTOPHILPCT, LYMPHOPCT, MONOPCT, EOSPCT, ANEUT Coagulation: No results found for: INR, PT, PTT, CLFGN Renal: No results found for: NA, K, CL, CO2, BUN, CREATININE, GLUCOSE, CALCIUM, ICAS, MG, PHOS Liver: No results found for: AST, ALT, ALPHO, BILITOT, BILIDIR Glucose: No results found for: PGLU Lab Results Component Value Date HGBA1C 5.3 10/18/2020 Microbiology: Results Procedure Component Value Units Date/Time Clostridiodes (Clostridium) difficile PCR [[id number]] Order Status: Sent Specimen: Stool from Rectum Comprehensive GI Panel by PCR [[id number]] Order Status: Sent Specimen: Stool from Rectum Imaging (in last 24 hours): US Abdomen RUQ Result Date: 07/20/2022 Normal right upper quadrant sonogram CRITICAL RESULT: No. COMMUNICATION: Per this written report. Drafted by Gage Nelson MD on 07/20/2022 12:40 PM Final report signed by Gage Nelson MD on 07/20/2022 12:41 PM Assessment and plan: 36F with gastritis and chronic pancreatitis, here with epigastric pain, N/V, and elevated lipase with likely acute pancreatitis. HDS. High concerns for opioid dependence. Narcotics are now being weaned. #) Acute on chronic pancreatitis - history and lipase 193 support diagnosis, however CT from 05/2022 does not show evidence of chronic pancreatitis - Lipid panel TG 292 - Concerns for opioid dependence - RUQ US normal - Started creon TID with meals Plan - will order tylenol and celoxib scheduled, tramadol 50-100 mg q6h -ordered compazine and zofran as needed for nausea - Continue diet to solids, low-fat - continue home PPI #Severe Anxiety - Patient has a long history of anxiety - Has not filled lorazepam since April (DAMIAN reviewed) - Continue vistaril 50 mg q6h PRN - Start amitriptyline 25 mg at bedtime - Will benefit from outpatient therapy #) Concerns for Opioid use disorder Per discharge summary of 05/27/2021 where there were no concerns for pancreatitis - NO IV OPIATES and NO new SCRIPTs of OPIATES on discharge to patient- PATIENT HAS BEEN CLEARLY EXPLAINED At that time ACES consulted. Recommended to wean patient from oxycodone Primary team had a long discussion with Dr Shawn Pearce reviewed and patient has been filling oxycodone 5 mg and pregabalin 300 mg Plan Continue to wean as above Warning was placed in communicator task so ED can seen next time and avoid IV dilaudid unless absolutely necessary #) New onset HTN Now normotensive, nifedipine discontinue Transaminitis (improving) - has had cholecystectomy - RUQ US normal - Continue to trend LFTs Diet Adult diet Diet texture: Regular; Fat restriction: Low Fat DVT prophylaxis Lovenox prophylaxis Code status Full Code Problems List: Principal problem: Acute on chronic pancreatitis (CMS/HCC) Principal Problem: Acute on chronic pancreatitis (CMS/HCC) Francesca Man Internal Medicine Pediatrics PGY-3 Pager [phone] Cosigned by Nadja Wheat DO at 07/23/2022 4:17 PM EDT Associated attestation - Nadja Wheat DO - 07/23/2022 4:17 PM EDT I saw and evaluated the patient with the resident/fellow. I discussed the case with the resident/fellow and agree with the findings and plan as documented. S: Pain significantly improved today. She reports some increased pain with breakfast but otherwise she states she is feeling significantly better. She states she slept well last night and her mood isbetter. No SI. O: WDWN. NAD. Obese. Moist mucous membranes. EOMI intact. Conjunctiva normal. Heart regular rate and rhythm, no murmurs, rubs, gallops. Lungs CTAB with no rales, wheezes or rhonchi. Abdomen nondistended, nontender, normoactive bowel sounds. Lower extremities without tenderness or edema. Neurologically alert and oriented x3. No focal neurologic deficits. Mental status at baseline. A/P: Mild acute on chronic pancreatitis Functional dyspepsia Uncontrolled anxiety, depression, and insomnia -Continue lyrica bid, tramadol prn, elacil nightly, and vistaril prn -continue creon * Care Plan - Chelsie Richardson LPN - 07/23/2022 8:11 AM EDT Problem: Adult Inpatient Plan of Care Goal: Plan of Care Review Outcome: Ongoing, Progressing Flowsheets (Taken 07/21/2022 1402 by Susan Russ RN) Progress: improving Plan of Care Reviewed With: [...] Pain Control and Function Outcome: Ongoing, Progressing Goal: Effective Oxygenation and Ventilation Outcome: Ongoing, Progressing * Care Plan - Paige Rodriguez - 07/23/2022 12:04 AM EDT Problem: Adult Inpatient Plan of [...] Pain Control and Function Outcome: Ongoing, Progressing Goal: Effective Oxygenation and Ventilation Outcome: Ongoing, Progressing * Consults - Sharon Bullard - 07/22/2022 5:35 PM EDT Pastoral Care Note Attempted follow up visit of pastoral care. Patient sleeping. Will attempt to follow up on a later date. Referral From: Computer Clerk initiated Pastoral Care Provided For: Patient Patient Profile: Consult Reasons: Continuation of care Unable to Assess: Unavailable Spiritual Assessment: Interventions: Interventions Provided: Emotional support Pastoral Care Outcomes: * Clinician Note - Nadja Wheat DO - 07/22/2022 4:05 PM EDT I saw and evaluated the patient with the resident/fellow. I discussed the case with the resident/fellow and agree with the findings and plan as documented. Patient reports pain remains uncontrolled. Located in the LUQ and RLQ. Described as throbbing. Worsened with food. Also endorses anxiety but states previously had SI with latuda and effexor so these were stopped. Reports significant insomnia. Also states she used to take Creon but is unsure why they were stopped. Mild acute on chronic pancreatitis Functional dyspepsia Uncontrolled anxiety, depression, and insomnia -adjusted pain medication to tramadol 50-100 mg q6h PRN (patient states she gets a tolerable mild rash) -agreeable to trial of elavil tonight, hopefully will not have SI side affect -resume creon * Progress Notes - Suzi Shields - 07/22/2022 3:04 PM EDT Case Management Adult Initial Progress Note Rosibel Gayle 36 y.o. female CSN: [id number] Admission: 07/19/2022 11:48 AM Primary Problem: Acute on chronic pancreatitis (CMS/HCC) Shuttler reviewed chart and spoke with patient to complete this Initial Case Management Assessment. PCP: Elmo Escobar MD Emergency Contact: Extended Emergency Contact Information Primary Emergency Contact: Asiya Flores Address: [address] [place] [address] of [employer] Relation: Mother Preferred language: Ghanaian Master Ocean needed? No Insurance: Primary Visit Coverage Payer Plan Sponsor Code Group Number Group Name [employer]M MEDICAID SAV MEDICAID [id number] Primary Visit Coverage Subscriber Subscriber ID Subscriber Name Subscriber SSN Subscriber Address [id number] ROSIBEL GAYLE [id number] [place] [address] Patient information: Support System: (Spouse & mother) Daily Living Activities: Functional Status: Independent Living Arrangements: Spouse/Significant other, Children, Parent/Gaurdian Type of Residence: Private residence [address] [place] [address] Smoker in the Home?: Yes Current DME: Income Information: Income Source: Unemployed Income/Expense Information: Expenses exceed income Current Resources Utilized: Food [place] Housing Circumstances-Z Codes: Housing Circumstances (select all that apply): Low Income (101-300% Federal Poverty Guidlines) - Z596 Patient Referred to: Anticipated Discharge Date: TBD Patient's Discharge Goal: Assistance Available at Discharge: Discharge Transport: Pt family Follow Up Transport: Pt family Home Health / Home Infusion / Outpatient Dialysis Services: None reported. Living Will/Advance Directive/Power of National Account Manager /Guardian: Have you reviewed your Advance Directive and is it valid for this stay?: No Advance Directive: Patient would not like information Information Provided on Healthcare Directives: No Pre-existing DNR/DNI Order: No Patient Requests Assistance: No Additional Comments: Pt gets her medications from [facility] and has had COVID vaccine & booster Suzi Shields * Progress Notes - Francesca Perdomo MD - 07/22/2022 12:17 PM EDT Images from the original note were not included. Hospital Medicine Progress Note Subjective Length of stay: 3 days Brief Patient Summary: 36F with gastritis and chronic pancreatitis, here with epigastric pain, N/V, and elevated lipase with likely acute pancreatitis. HDS Patient feeling better this morning. Reports her pain is better controlled. Her anxiety is also better controlled. Patient in better spirits since her son visited her yesterday. Reports she may pulled a muscle in her suprapubic area that is bothering her. Review of Systems: Denies fever, chills, chest pain, dyspnea, nausea, and vomiting. Objective: Blood pressure (!) 132/94, pulse 81, temperature 36.9 ??C (98.5 ??F), temperature source Oral, resp. rate 18, height 1.651 m (5' 5 ), weight 111 kg (245 lb 9.5 oz), SpO2 100 %, not currently . Physical Exam: Vitals reviewed. Constitutional: Appearance: Normal appearance. Obese HENT: Head: Normocephalic and atraumatic. Right Ear: [...] no distension. Palpations: Abdomen is soft. Tenderness: No tenderness. There is no guarding or rebound. Musculoskeletal: General: Normal range of motion. Cervical back: Normal range of motion. Skin: General: Skin is warm and dry. Capillary Refill: Capillary refill takes less than 2 seconds. Neurological: General: No focal deficit present. Mental Status: She is alert and oriented to person, place, and time. Psychiatric: Mood and Affect: Tearful Thought Content: Thought content normal. Judgment: Judgment impaired Hospital Medications: Scheduled: acetaminophen, 1,000 mg, Oral, q6h INO amitriptyline, 25 mg, Oral, Nightly celecoxib, 200 mg, Oral, BID enoxaparin, 40 mg, Subcutaneous, Daily NIFEdipine XL, 30 mg, Oral, Daily pancrelipase (Wha-Dazg-Utwz), 2 capsule, Oral, TID with meals pantoprazole, 40 mg, Oral, BID pregabalin, 300 mg, Oral, BID Continuous: As needed: hydrOXYzine pamoate, 50 mg, q6h PRN melatonin, 6 mg, Nightly PRN ondansetron ODT, 4 mg, q6h PRN prochlorperazine, 5 mg, q6h PRN sodium chloride, 10 mL, q8h PRN And sodium chloride, 10 mL, PRN traMADol, 50 mg, q6h PRN Data: Labs (in last 24 hours): CBC: No results found for: WBC, RBC, HGB, HCT, PLT, MCV, MCH, MCHC, RDW, NRBC Differential: No results found for: WBC, NEUTOPHILPCT, LYMPHOPCT, MONOPCT, EOSPCT, ANEUT Coagulation: No results found for: INR, PT, PTT, CLFGN Renal: No results found for: NA, K, CL, CO2, BUN, CREATININE, GLUCOSE, CALCIUM, ICAS, MG, PHOS Liver: No results found for: AST, ALT, ALPHO, BILITOT, BILIDIR Glucose: No results found for: PGLU Lab Results Component Value Date HGBA1C 5.3 10/18/2020 Microbiology: Results Procedure Component Value Units Date/Time Clostridiodes (Clostridium) difficile PCR [[id number]] Order Status: Sent Specimen: Stool from Rectum Comprehensive GI Panel by PCR [[id number]] Order Status: Sent Specimen: Stool from Rectum Imaging (in last 24 hours): US Abdomen RUQ Result Date: 07/20/2022 Normal right upper quadrant sonogram CRITICAL RESULT: No. COMMUNICATION: Per this written report. Drafted by Gage Nelson MD on 07/20/2022 12:40 PM Final report signed by Gage Nelson MD on 07/20/2022 12:41 PM Assessment and plan: 36F with gastritis and chronic pancreatitis, here with epigastric pain, N/V, and elevated lipase with likely acute pancreatitis. HDS. High concerns for opioid dependence. Narcotics are now being weaned. #) Acute on chronic pancreatitis - history and lipase 193 support diagnosis, however CT from 05/2022 does not show evidence of chronic pancreatitis - Lipid panel TG 292 - Concerns for opioid dependence - RUQ US normal Plan - will order tylenol and celoxib scheduled, tramadol 50-100 mg q6h - Start creon TID with meals -ordered compazine and zofran as needed for nausea - advancing diet to solids, low-fat - continue home PPI #Severe Anxiety - Patient has a long history of anxiety - Has not filled lorazepam since April (DAMIAN reviewed) - Continue vistaril 50 mg q6h PRN - Start amitriptyline 25 mg at bedtime - Will benefit from outpatient therapy #) Concerns for Opioid use disorder Per discharge summary of 05/27/2021 where there were no concerns for pancreatitis - NO IV OPIATES and NO new SCRIPTs of OPIATES on discharge to patient- PATIENT HAS BEEN CLEARLY EXPLAINED At that time ACES consulted. Recommended to wean patient from oxycodone Primary team had a long discussion with Dr Escobar PCP Damian reviewed and patient has been filling oxycodone 5 mg and pregabalin 300 mg Plan Continue to wean as above Warning was placed in communicator task so ED can seen next time and avoid IV dilaudid unless absolutely necessary #) New onset HTN Suspect anxiety versus pain versus primary Nifedipine ordered 30 mg patient agreeable to take if needed SBP goal < 140 Transaminitis (improving) - has had cholecystectomy - RUQ US normal - Continue to trend LFTs Diet Adult diet Diet texture: Regular; Fat restriction: Low Fat DVT prophylaxis Lovenox prophylaxis Code status Full Code Problems List: Principal problem: Acute on chronic pancreatitis (CMS/HCC) Principal Problem: Acute on chronic pancreatitis (CMS/HCC) Frances[facility] Man Internal Medicine Pediatrics PGY-3 Pager [phone] Cosigned by Nadja Wheat DO at 07/22/2022 6:55 PM EDT Associated attestation - Nadja Wheat DO - 07/22/2022 6:55 PM EDT I saw and evaluated the patient with the resident/fellow. I discussed the case with the resident/fellow and agree with the findings and plan as documented. Patient reports pain remains uncontrolled. Located in the LUQ and RLQ. Described as throbbing. Worsened with food. Also endorses anxiety but states previously had SI with latuda and effexor so these were stopped. Reports significant insomnia. Also states she used to take Creon but is unsure why they were stopped. Mild acute on chronic pancreatitis Functional dyspepsia Uncontrolled anxiety, depression, and insomnia -adjusted pain medication to tramadol 50-100 mg q6h PRN (patient states she gets a tolerable mild rash) -agreeable to trial of elavil tonight, hopefully will not have SI side affect -resume creon * Care Plan - Clarisa Ulloa RN - 07/22/2022 6:10 AM EDT Pt awake all night. VS noted. Pt c/o pain assessed/ treated/ relief reassessed. Pt continued pain assessed/ provider notified and no orders received/ reassessed. Pt c/o anxiety assessed/ treated/ relief reassessed. Pt c/o nausea assessed/ treated/ relief reassessed. Pt c/o `can't sleep'/ treated/ relief reassessed. Pt with continued inability to sleep/ provider notified and order received/ treated/ relief reassessed. No other c/o voiced. No other distress noted. * Care Plan - Susan Russ RN - 07/21/2022 2:02 PM EDT Problem: Adult Inpatient Plan of Care Goal: Plan of Care Review Outcome: Ongoing, Progressing Flowsheets (Taken 07/21/2022 1402) Progress: improving Plan of Care Reviewed With: [...] Pain Control and Function Outcome: Ongoing, Progressing Goal: Effective Oxygenation and Ventilation Outcome: Ongoing, Progressing * Progress Notes - Francesca Perdomo MD - 07/21/2022 9:13 AM EDT Images from the original note were not included. Hospital Medicine Progress Note Subjective Length of stay: 2 days Brief Patient Summary: 36F with gastritis and chronic pancreatitis, here with epigastric pain, N/V, and elevated lipase with likely acute pancreatitis. HDS Patient tearful this morning requesting an increase in her oxycodone. Reports she does not want IV pain medications. Reports her anxiety is better with vistaril and does not need ativan. She would like a regular diet and order broth if needed. Had 1 episode of emesis this morning that was unwitnessed. Denies diarrhea. Reports her GI doctor is Jassi Jane in [place] and she has an appt coming up soon. She refused to take amlodipine because she does not want to mask her pain. When came back and talked to her again patient more cooperative, she will take the nifedipine if her Blood pressure is up. She apologize for being rude at first, her pain was controlled with oxycodone 10 mg. Review of Systems: Denies fever, chills, chest pain, dyspnea, nausea, and vomiting. Objective: Blood pressure (!) 165/96, pulse 85, temperature 36.3 ??C (97.4 ??F), temperature source Oral, resp. rate 18, height 1.651 m (5' 5 ), weight 111 kg (245 lb 9.5 oz), SpO2 96 %, not currently . Physical Exam: Vitals reviewed. Constitutional: Appearance: Normal appearance. Obese HENT: Head: Normocephalic and atraumatic. Right Ear: [...] Palpations: Abdomen is soft. Tenderness: There is diffused abdominal tenderness. There is no guarding or rebound. Musculoskeletal: General: Normal range of motion. Cervical back: Normal range of motion. Skin: General: Skin is warm and dry. Capillary Refill: Capillary refill takes less than 2 seconds. Neurological: General: No focal deficit present. Mental Status: She is alert and oriented to person, place, and time. Psychiatric: Mood and Affect: Tearful Thought Content: Thought content normal. Judgment: Judgment impaired Hospital Medications: Scheduled: acetaminophen, 1,000 mg, Oral, q6h INO celecoxib, 200 mg, Oral, BID enoxaparin, 40 mg, Subcutaneous, Daily NIFEdipine XL, 30 mg, Oral, Daily pantoprazole, 40 mg, Oral, BID pregabalin, 300 mg, Oral, BID Continuous: lactated Ringer's, 150 mL/hr, Last Rate: 150 mL/hr (07/19/22 1607) As needed: HYDROmorphone, 0.25 mg, q6h PRN hydrOXYzine pamoate, 50 mg, q6h PRN melatonin, 6 mg, Nightly PRN oxyCODONE, 5 mg, q6h PRN prochlorperazine, 5 mg, q6h PRN sodium chloride, 10 mL, q8h PRN And sodium chloride, 10 mL, PRN Data: Labs (in last 24 hours): CBC: No results found for: WBC, RBC, HGB, HCT, PLT, MCV, MCH, MCHC, RDW, NRBC Differential: No results found for: WBC, NEUTOPHILPCT, LYMPHOPCT, MONOPCT, EOSPCT, ANEUT Coagulation: No results found for: INR, PT, PTT, CLFGN Renal: No results found for: NA, K, CL, CO2, BUN, CREATININE, GLUCOSE, CALCIUM, ICAS, MG, PHOS Liver: No results found for: AST, ALT, ALPHO, BILITOT, BILIDIR Glucose: No results found for: PGLU Lab Results Component Value Date HGBA1C 5.3 10/18/2020 Microbiology: Results Procedure Component Value Units Date/Time Clostridiodes (Clostridium) difficile PCR [[id number]] Order Status: Sent Specimen: Stool from Rectum Comprehensive GI Panel by PCR [[id number]] Order Status: Sent Specimen: Stool from Rectum Imaging (in last 24 hours): US Abdomen RUQ Result Date: 07/20/2022 Normal right upper quadrant sonogram CRITICAL RESULT: No. COMMUNICATION: Per this written report. Drafted by Gage Nelson MD on 07/20/2022 12:40 PM Final report signed by Gage Nelson MD on 07/20/2022 12:41 PM Assessment and plan: 36F with gastritis and chronic pancreatitis, here with epigastric pain, N/V, and elevated lipase with likely acute pancreatitis. HDS. High concerns for opioid dependence. Narcotics are now being weaned. #) Acute on chronic pancreatitis - history and lipase 193 support diagnosis, however CT from 05/2022 does not show evidence of chronic pancreatitis - Lipid panel TG 292 - Concerns for opioid dependence - RUQ US normal Plan - will order tylenol and celoxib scheduled, oxycodone 10 mg every 6 hours prn. Stop dilaudid. Toradol for severe pain -ordered compazine as needed for nausea - advancing diet to solids, low-fat - continue home PPI - Pancreas US pending #) Concerns for Opioid use disorder Per discharge summary of 05/27/2021 where there were no concerns for pancreatitis - NO IV OPIATES and NO new SCRIPTs of OPIATES on discharge to patient- PATIENT HAS BEEN CLEARLY EXPLAINED At that time ACES consulted. Recommended to wean patient from oxycodone Primary team had a long discussion with Dr Escobar PCP Damian reviewed and patient has been filling oxycodone 5 mg and pregabalin 300 mg Plan Continue to wean as above Warning was placed in communicator task so ED can seen next time and avoid IV dilaudid unless absolutely necessary #) New onset HTN Suspect anxiety versus pain versus primary Nifedipine ordered 30 mg patient agreeable to take if needed SBP goal < 140 Transaminitis (improving) - has had cholecystectomy - RUQ US normal - Continue to trend LFTs Mood disorder Anxiety - Has not filled lorazepam since April (DAMIAN reviewed) - Will add vistaril PRN Diet Adult diet Diet texture: Clear liquid; Fat restriction: Low Fat DVT prophylaxis Lovenox prophylaxis Code status Full Code Problems List: Principal problem: Acute on chronic pancreatitis (CMS/HCC) Principal Problem: Acute on chronic pancreatitis (CMS/HCC) [facility] Man Internal Medicine Pediatrics PGY-3 Pager [phone] Cosigned by Jermain Sales MD at 07/21/2022 12:17 PM EDT Associated attestation - Jermain Sales MD - 07/21/2022 12:17 PM EDT I saw and evaluated the patient with the resident/fellow. I discussed the case with the resident/fellow and agree with the findings and plan as documented. Received IV Dilaudid this AM, stopping now per discussions with patient today and yesterday. Pain control with oxycodone and advancing diet. Discussed that she would not be discharged with new narcotics, and that outpatient PCP, GI and pain clinic f/u is the most appropriate and safest means for her to manage her pain. * Care Plan - Camila Echeverria RN - 07/21/2022 4:59 AM EDT Problem: Adult Inpatient Plan of Care Goal: Plan of Care Review Outcome: Ongoing, Progressing Flowsheets (Taken 07/21/2022 0459) Progress: no change Plan of Care Reviewed [...] Pain Control and Function Outcome: Ongoing, Progressing Goal: Effective Oxygenation and Ventilation Outcome: Ongoing, Progressing * Consults - Torsten Morales - 07/20/2022 2:30 PM EDT Pastoral Care Note Referral From: Computer Clerk initiated Pastoral Care Provided For: Patient, Parent(s) Computer Clerk visited with patient and mother at bedside for support. Patient reported feeling anxious and in pain from her health condition. Computer Clerk prayed with patient and mother per patient's request. Patient Profile: Consult Reasons: Follow up Spiritual Assessment: Support Systems/ Spiritual Resources: Family Spiritual Needs: Emotional support, Prayer Spiritual Issues: Anxiety, Frustration/ anger, Chronic pain/ illness, Demoralization Interventions: Interventions Provided: Family support, Emotional support, Prayer Pastoral Care Outcomes: Patient Outcomes: Is knowledgeable about [employer], Expresses ongoing struggle * Progress Notes - Francesca Perdomo MD - 07/20/2022 12:58 PM EDT Images from the original note were not included. Hospital Medicine Progress Note Subjective Length of stay: 1 day Brief Patient Summary: 36F with gastritis and chronic pancreatitis, here with epigastric pain, N/V, and elevated lipase with likely acute pancreatitis. HDS Patient tearful this morning requesting increased in dilaudid. A long discussion was held with patient about concerns for opioid dependence and made her more anxious. Mom called later and had a long conversation with Dr Reyes and she agreed patient's pain is most likely caused by anxiety. In addition patient endorses vomiting which is green in color which has been unwitnessed by nurses. Review of Systems: Denies fever, chills, chest pain, dyspnea, nausea, and vomiting. Objective: Blood pressure (!) 157/99, pulse 82, temperature 36.7 ??C (98 ??F), temperature source Oral, resp. rate 14, height 1.651 m (5' 5 ), weight 111 kg (245 lb 9.5 oz), SpO2 94 %, not currently . Physical Exam: Vitals reviewed. Constitutional: Appearance: Normal appearance. Obese HENT: Head: Normocephalic and atraumatic. Right Ear: [...] Palpations: Abdomen is soft. Tenderness: There is diffused abdominal tenderness. There is no guarding or rebound. Musculoskeletal: General: Normal range of motion. Cervical back: Normal range of motion. Skin: General: Skin is warm and dry. Capillary Refill: Capillary refill takes less than 2 seconds. Neurological: General: No focal deficit present. Mental Status: She is alert and oriented to person, place, and time. Psychiatric: Mood and Affect: Tearful Thought Content: Thought content normal. Judgment: Judgment impaired Hospital Medications: Scheduled: acetaminophen, 1,000 mg, Oral, q6h INO celecoxib, 200 mg, Oral, BID enoxaparin, 40 mg, Subcutaneous, Daily pantoprazole, 40 mg, Oral, BID pregabalin, 300 mg, Oral, BID Continuous: lactated Ringer's, 150 mL/hr, Last Rate: 150 mL/hr (07/19/22 1607) As needed: gi cocktail, 30 mL, 4x daily PRN HYDROmorphone, 0.25 mg, q6h PRN hydrOXYzine pamoate, 25 mg, q6h PRN LORazepam, 1 mg, Daily PRN melatonin, 6 mg, Nightly PRN oxyCODONE, 5 mg, q6h PRN prochlorperazine, 5 mg, q6h PRN sodium chloride, 10 mL, q8h PRN And sodium chloride, 10 mL, PRN Data: Labs (in last 24 hours): CBC: Lab Results Component Value Date WBC 7.22 07/20/2022 RBC 4.50 07/20/2022 HGB 12.3 07/20/2022 HCT 38.3 07/20/2022 PLT 256 07/20/2022 MCV 85 07/20/2022 MCH 27.3 07/20/2022 MCHC 32.1 07/20/2022 RDW 15.0 (H) 07/20/2022 NRBC 0.0 07/20/2022 Differential: Lab Results Component Value Date WBC 7.22 07/20/2022 NEUTOPHILPCT 54.0 07/20/2022 LYMPHOPCT 35.0 07/20/2022 MONOPCT 8.0 07/20/2022 EOSPCT 1.0 07/20/2022 Coagulation: No results found for: INR, PT, PTT, CLFGN Renal: Lab Results Component Value Date NA 135 (L) 07/20/2022 K 4.4 07/20/2022 CL 100 07/20/2022 CO2 22 07/20/2022 BUN 7 07/20/2022 CREATININE 0.68 07/20/2022 GLUCOSE 99 07/20/2022 CALCIUM 8.9 07/20/2022 MG 2.1 07/20/2022 PHOS 5.0 (H) 07/20/2022 Liver: Lab Results Component Value Date AST 49 (H) 07/20/2022 ALT 64 (H) 07/20/2022 BILITOT 0.3 07/20/2022 Glucose: No results found for: PGLU Lab Results Component Value Date HGBA1C 5.3 10/18/2020 Microbiology: Results Procedure Component Value Units Date/Time Clostridiodes (Clostridium) difficile PCR [[id number]] Order Status: Sent Specimen: Stool from Rectum Comprehensive GI Panel by PCR [[id number]] Order Status: Sent Specimen: Stool from Rectum Imaging (in last 24 hours): US Abdomen RUQ Result Date: 07/20/2022 Normal right upper quadrant sonogram CRITICAL RESULT: No. COMMUNICATION: Per this written report. Drafted by Gage Nelson MD on 07/20/2022 12:40 PM Final report signed by Gage Nelson MD on 07/20/2022 12:41 PM Assessment and plan: 36F with gastritis and chronic pancreatitis, here with epigastric pain, N/V, and elevated lipase with likely acute pancreatitis. HDS. High concerns for opioid dependence. Narcotics are now being weaned. #) Acute on chronic pancreatitis - history and lipase 193 support diagnosis, however CT from 05/2022 does not show evidence of chronic pancreatitis - Lipid panel TG 292 - Concerns for opioid dependence - RUQ US normal Plan - will order tylenol and celoxib scheduled, oxycodone 5mg every 6 hours prn, dilaudid 0.25mg every 6 hours PRN. Stop dilaudid tomorrow. Toradol for severe pain -ordered compazine as needed for nausea - CLD per patient request - continue home PPI #) Concerns for Opioid use disorder Per discharge summary of 05/27/2021 where there were no concerns for pancreatitis - NO IV OPIATES and NO new SCRIPTs of OPIATES on discharge to patient- PATIENT HAS BEEN CLEARLY EXPLAINED At that time ACES consulted. Recommended to wean patient from oxycodone Primary team had a long discussion with Dr Escobar PCP Damian reviewed and patient has been filling oxycodone 5 mg and pregabalin 300 mg Plan Continue to wean as above Warning was placed in communicator task so ED can seen next time and avoid IV dilaudid Transaminitis (improving) - has had cholecystectomy - RUQ US normal - Continue to trend LFTs Mood disorder Anxiety - continue lurasidone - Has not filled lorazepam since April (DAMIAN reviewed) - Will add vistaril PRN Diet Adult diet Diet texture: Clear liquid; Fat restriction: Low Fat DVT prophylaxis Lovenox prophylaxis Code status Full Code Problems List: Principal problem: Acute on chronic pancreatitis (CMS/HCC) Principal Problem: Acute on chronic pancreatitis (CMS/HCC) Frances[facility] Man Internal Medicine Pediatrics PGY-3 Pager [phone] Cosigned by Sosa Reyes MD at 07/20/2022 3:15 PM EDT Associated attestation - Sosa Reyes MD - 07/20/2022 3:15 PM EDT I saw and evaluated the patient with the resident/fellow. I discussed the case with the resident/fellow and agree with the findings and plan as documented. Pt seen this morning and at the time of my evaluation pt was extremely tearful and upset about her decrease in pain medication. It was discussed with pt about the concern for opioid dependence. I later discussed with pt mother about the pain medication plan, which is dilaudid 0.25mg q6hr PRN and then tomorrow stop IV pain medication and only have PO Oxycodone 5mg PRN available. Mother informed felicia Sharp has debilitating anxiety (for example will not open the front door when the door stahl rings because she is too anxious) and there she believes her pain is mainly due to anxiety. She also said Rosibel becomes very anxious about the possibility of having pain. I discussed with pt mother thather pain is very likely anxiety driven, as rosibel has no imaging findings consistent with pancreatitis. I discussed with pt mother that treating anxiety with IV/PO opioids is inappropriate, she was inagreement. For now will continue pain management as stated above and add hydroxyzine for PRN anxiety. I believe Rosibel would benefit from outpt psychiatry management/ counseling for her anxiety. LFTs continue to be mildly elevated, RUQ u/s pending. Will continue CLD. * Consults - Torsten Morales - 07/20/2022 10:43 AM EDT Pastoral Care Note Referral From: Computer Clerk initiated Pastoral Care Provided For: Other (Comment) (Attempted visit) Computer Clerk attempted visit. Patient was unavailable at time of visit. Patient Profile: Consult Reasons: Initial visit Unable to Assess: Unavailable Spiritual Assessment: Interventions: Interventions Provided: Other (Comment) (Unavailable) Pastoral Care Outcomes: * Care Plan - Camila Echeverria RN - 07/20/2022 4:25 AM EDT Problem: Adult Inpatient Plan of Care Goal: Plan of Care Review Outcome: Ongoing, Progressing Flowsheets (Taken 07/20/2022 0425) Progress: no change Plan of Care Reviewed [...] Pain Control and Function Outcome: Ongoing, Progressing Goal: Effective Oxygenation and Ventilation Outcome: Ongoing, Progressing * Care Plan - Susan Russ RN - 07/19/2022 6:34 PM EDT Problem: Adult Inpatient Plan of Care Goal: Plan of Care Review Outcome: Ongoing, Progressing Flowsheets (Taken 07/19/2022 1834) Progress: improving Plan of Care Reviewed With: [...] Pain Control and Function Outcome: Ongoing, Progressing Goal: Effective Oxygenation and Ventilation Outcome: Ongoing, Progressing * H&P - Johanna Somers MD - 07/19/2022 3:15 PM EDTAssociated Order(s): Consult to [facility] Images from the original note were not included. Consult to [facility] Consult performed by: Johanna Somers MD Consult ordered by: Jermain Sales MD Chief Concern & History Of Present Illness Rosibel Gayle is a 36 y.o. female presenting with chronic pancreatitis and mood disorder here with abdominal pain, nausea and vomiting. She says that around 3AM this morning she woke up with severe aching epigastric pain with associated nausea, vomiting and diarrhea. Shes vomited 3 times today, clear or yellow. And diarrhea is loose stool. Last vomit was prior to being in the ER. Abdominal pain is epigastric radiates to the back. Tried carafate, tylenol 3x 650mg, ibuprofen 800mg once, without relief. Denies fevers, chills, CP, SOA, cough, congestion, runny nose, dysuria, hematuria, other abdominal pain. ED she was given 1LIVF and IV morphine for pain control. LFTS mildly elevated and elevated. Past Medical History She has a past medical history of Anxiety, Arthritis, Depression, Fibromyalgia, GERD (gastroesophageal reflux disease), Hypertension, Nicotine dependence, Obesity, and Pancreatitis. She has no past medical history of Adverse effect of anesthesia, Asthma, Awareness under anesthesia, Cancer ([facility]), CHF (congestive heart failure) ([facility] COPD (chronic obstructive pulmonary disease) ([facility]), Coronary artery disease, Delayed emergence from general anesthesia, Diabetes mellitus ([facility]), Disease of thyroid gland, Hard to intubate, History of transfusion, Malignant hyperthermia, PONV (postoperative nausea and vomiting), Pseudocholinesterase deficiency, Spinal headache, or Stroke ([facility]). Surgical History She has a past surgical [...] use alcohol. She reports current drug use. Frequency: 4.00 times per week. Drug: Marijuana. Occupational History none Occupational Exposure [...] last month? No Travel History Travel since 06/19/22 No documented travel since 06/19/22 VACCINE/DOSE DATE DATE Flu 11/21/2019 12/27/2020 Tetanus Pneumovax Shingles Allergies Droperidol and Tramadol Outpatient medications in system Current Outpatient Medications Medication Instructions acetaminophen (TYLENOL) 1,000 mg, Oral, Every 6 hours PRN Cholecalciferol (VITAMIN D3 PO) Oral, Daily Cyanocobalamin (VITAMIN B12 PO) Oral, Daily ketoconazole (NIZOral) 2 % cream 1 application., Topical, Daily Latuda 40 mg, Oral, Daily with breakfast lidocaine (Lidoderm) 5 % patch 1 patch, Apply externally, As needed, Remove & discard patch within 12 hours or as directed by MD. LORazepam (ATIVAN) 1 mg, Oral, Daily Melatonin 5 mg, Oral, Nightly PRN oxyCODONE-acetaminophen (Percocet) 7.5-325 MG tablet 1 tablet, Oral, 3 times daily PRN pancrelipase, Mii-Aqcs-Qhyd, (Creon) 99476-76035 units capsule 2 capsules, Oral, 3 times daily withmeals pantoprazole (PROTONIX) 40 mg, Oral, 2 times daily, Do not crush, chew, or split. pregabalin (LYRICA) 300 mg, Oral, 2 times daily promethazine (PHENERGAN) 25 mg, Oral, Every 6 hours PRN promethazine (PHENERGAN) 12.5 mg, Oral, Every 6 hours PRN sucralfate (CARAFATE) 1 g, Oral, 4 times daily venlafaxine XR (EFFEXOR-XR) 150 mg, Oral, Daily Medications ordered for hospitalization acetaminophen, 1,000 mg, Oral, q6h INO celecoxib, 200 mg, Oral, BID enoxaparin, 40 mg, Subcutaneous, Daily [START ON 07/20/2022] lurasidone, 40 mg, Oral, Daily with breakfast pancrelipase (Sbm-Stme-Doiy), 2 capsule, Oral, TID with meals pantoprazole, 40 mg, Oral, BID pregabalin, 300 mg, Oral, BID sucralfate, 1 g, Oral, 4x daily venlafaxine XR, 150 mg, Oral, Daily lactated Ringer's, 150 mL/hr PRN medications: gi cocktail, HYDROmorphone, LORazepam, melatonin, ondansetron, oxyCODONE, Insert peripheral IV AND Saline lock IV AND sodium chloride AND sodium chloride Review of Systems All other systems reviewed and are negative. Physical Exam Vitals reviewed. Constitutional: Appearance: Normal appearance. HENT: Head: Normocephalic and atraumatic. Right Ear: [...] range of motion. Skin: General: Skin is warm and dry. Capillary Refill: Capillary refill takes less than 2 seconds. Neurological: General: No focal deficit present. Mental Status: She is alert and oriented to person, place, and time. Psychiatric: Mood and Affect: Mood normal. Thought Content: Thought content normal. Judgment: Judgment normal. Last Recorded Vitals Blood pressure (!) 153/89, pulse 89, temperature 36.7 ??C (98.1 ??F), temperature source Oral, resp. rate 18, height 1.651 m (5' 5 ), weight 111 kg (245 lb 9.5 oz), SpO2 97 %, not currently . Relevant Results Labs in last 18 hours CBC WBC 5.92 Hb 12.7 Plt 256 Hct 37.8 ANC 3.73 INR ??, PTT ??, Anti-Xa ?? BMP Na 141 Cl 104 BUN 4 (L) Glu 97 K 4.2 Co2 24 Cr 0.51 (L) Ca 9.8 iCa ?? Mg ??, Phos ?? Lactate ?? LFT AST 66 (H) AlkPhos 127 (H) T Prot 7.5 ALK 72 (H) Bili <0.2 (L) Alb ?? D.Bili ?? Assessment/Plan Principal Problem: Acute on chronic pancreatitis (CMS/HCC) Acute on chronic Pancreatitis - history and lipase 193 support diagnosis Plan - will order tylenol and celoxib scheduled, oxycodone 5mg every 6 hours prn, dilaudid 0.25mg every 4 hours prn -order zofran as needed for nausea - allow regular diet low fat - order US abdomen and RUQ ultrasound - lipid panel - IVF - continue home PPI - continue pancreatitic enzymes Transaminitis - will order acute hepatitis panel, RUQ US as above - has had cholecystectomy Mood disorder - continue lurasidone, ativan prn Venous thromboembolism prophylaxis Patient on enoxaparin Diet Dietary Orders (From admission, onward) Start Ordered 07/19/22 1511 Adult diet Diet texture: Regular; Fat restriction: Low Fat Diet effective now References: IDDSI Diet Texture Guide Question Answer Comment Diet texture Regular Fat restriction: Low Fat 07/19/22 1515 Code Status Full Code Cosigned by Jermain Sales MD at 07/21/2022 11:39 AM EDT Associated attestation - Jermain Sales MD - 07/21/2022 11:39 AM EDT I saw and evaluated the patient. I discussed the case with the resident/fellow and agree with the findings and plan as documented. Patient reports diagnosis of chronic pancreatitis with frequent flares, but is followed by outside GI so records unavailable. Technically meets criteria for acute panc with lipase and classic pain, but has had numerous previous presentations without any imaging findings of acute or chronic pancreatitis. Will get RUQ US to rule out stone. Pain control with rapid weaning once improved. * ED Provider Notes - Ирина Oliver APRN - 07/19/2022 11:25 AM EDT HPI Chief Complaint Patient presents with Abdominal Pain Rosibel Gayle is a [age]-year-old female with a PMH of fibromyalgia, GERD, hypertension, pancreatitis, presents to the ED for evaluation of 3 days of epigastric abdominal pain, nausea, vomiting, and multiple episodes of diarrhea. Patient notes that she has chronic pancreatitis in her pain is typically aching in nature however now she has stabbing epigastric pain that she rates a 10/10 and throbbingin nature. She notes that her diarrhea is brown and thin and denies any mucus. Patient attempted touse her home medications including Tylenol, ibuprofen, Zofran, Carafate, methocarbamol, and oxycodone without improvement. Patient denies hematemesis, hematochezia, chest pain, shortness of breath, di zziness, or headache. 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 No data recorded Patient History Past Medical History: Diagnosis Date Anxiety Arthritis Depression Fibromyalgia GERD (gastroesophageal reflux disease) Hypertension Nicotine dependence Obesity Pancreatitis Past Surgical History: Procedure Laterality Date CHOLECYSTECTOMY ERCP ESOPHAGOGASTRODUODENOSCOPY HAND SURGERY Family History Problem Relation Name Age of Onset Hypertension Mother No Known Problems Father Tobacco Use Smoking status: Every Day Packs/day: 1.00 Years: 15.00 Pack years: 15.00 Types: Cigarettes Smokeless tobacco: Never Vaping Use Vaping Use: Never used Substance Use Topics Alcohol use: Not Currently Comment: Alcoholic Drinks/day: Minimum alcohol consumption Drug use: Yes Frequency: 4.0 times per week Types: Marijuana Comment: daily use Immunization History Immunization History: reviewed Allergies: Allergies Allergen Reactions Droperidol Other Experienced an acute dystonic reaction treated with diphenhydramine Tramadol Dizziness and Rash Review of Systems Review of Systems Constitutional: Positive for appetite change. Negative for fatigue and fever. HENT: Negative for congestion, trouble swallowing and voice change. Eyes: Negative for photophobia and visual disturbance. Respiratory: Negative for cough, chest tightness and shortness of breath. Cardiovascular: Negative for chest pain and palpitations. Gastrointestinal: Positive for abdominal pain, diarrhea, nausea and vomiting. Negative for constipation. Genitourinary: Negative for dysuria, flank pain, frequency, hematuria and urgency. Musculoskeletal: Negative for back pain, neck pain and neck stiffness. Skin: Negative for rash. Neurological: Negative for dizziness, syncope, weakness, numbness and headaches. Psychiatric/Behavioral: Negative for confusion. All other systems reviewed and are negative. Physical Exam ED Triage Vitals [07/19/22 1134] Temp Heart Rate Resp BP 36.9 ??C (98.5 ??F) 111 18 (!) 158/104 SpO2 Temp Source Heart Rate Source Patient Position 99 % Oral Monitor -- BP Location FiO2 (%) Right arm -- Physical Exam Vitals and nursing note reviewed. Constitutional: Appearance: She is well-developed and normal weight. She is not ill-appearing. Cardiovascular: Rate and Rhythm: Regular rhythm. Tachycardia present. Heart sounds: Normal heart sounds. No murmur heard. Pulmonary: Effort: Pulmonary effort is normal. Breath sounds: Normal breath sounds. Abdominal: General: Abdomen is flat. Bowel sounds are normal. Palpations: Abdomen is soft. Tenderness: There is abdominal tenderness in the epigastric area. There is guarding. There is no right CVA tenderness or left CVA tenderness. Negative signs include Carlson's sign, Rovsing's sign, McBurney's sign and psoas sign. Hernia: No hernia is present. Skin: General: Skin is warm and dry. Capillary Refill: Capillary refill takes less than 2 seconds. Neurological: General: No focal deficit present. Mental Status: She is alert and oriented to person, place, and time. Psychiatric: Mood and Affect: Mood normal. Labs Reviewed COMPREHENSIVE METABOLIC PANEL, PLASMA - Abnormal Result Value Glucose, Plasma 97 BUN, Plasma 4 (*) Creatinine, Plasma 0.51 (*) BUN/Creatinine Ratio 8 Sodium, Plasma 141 Potassium, Plasma 4.2 Chloride, Plasma 104 CO2, Plasma 24 Anion Gap 13 Total Calcium, Plasma 9.8 Total Protein 7.5 Albumin, Plasma 4.5 AST, Plasma 66 (*) ALT, Plasma 72 (*) Alkaline Phosphatase, Plasma 127 (*) Total Bilirubin, Plasma <0.2 (*) eGFRcr 125.0 CBC WITH AUTO DIFFERENTIAL - Abnormal WBC Count 5.92 RBC Count 4.65 HGB 12.7 HCT 37.8 Platelet Count 256 MCV 81 MCH 27.3 MCHC 33.6 RDW 14.6 (*) MPV 8.9 nRBC 0.0 Differential Type Automated Neutrophils % 62.0 Lymphocytes % 29.0 Monocytes % 6.0 Eosinophils % 0.0 Basophils % 1.0 Immature Granulocytes % 2.0 Neutrophils Absolute 3.73 Lymphocytes Absolute 1.71 Monocytes Absolute 0.33 Eosinophils Absolute 0.02 Basophils Absolute 0.04 Immature Granulocytes Absolute 0.09 (*) Narrative: Therapeutic decision making should be based on absolute values, rather than percentages. LIPASE, PLASMA - Abnormal Lipase, Plasma 193 (*) URINALYSIS WITH REFLEX MICROSCOPIC - Abnormal Color, Urine Yellow Clarity, Urine Clear Spec [place], Urine 1.008 pH, Urine >=8.5 (*) Protein, Urine Negative Glucose, Urine Negative Ketones, Urine Negative Blood, Urine Negative Bilirubin, Urine Negative Urobilinogen, Urine 0.2 Leukocytes, Urine Negative Nitrite, Urine Negative TEST QUALITATIVE PLASMA - Normal Test Negative Narrative: Reference Range: Males and non- females: Negative. CLOSTRIDIODES (CLOSTRIDIUM) DIFFICILE,PCR COMPREHENSIVE GI PANEL BY PCR Medications morphine PF 4 mg (has no administration in time range) lactated Ringer's infusion 1,000 mL (1,000 mL Intravenous New Bag 07/19/22 1250) ondansetron (Zofran) injection 4 mg (4 mg Intravenous Given 07/19/22 1249) morphine PF 4 mg (4 mg Intravenous Given 07/19/22 1250) promethazine (Phenergan) injection 12.5 mg (12.5 mg Intravenous Given 07/19/22 1341) ED Course & MDM ED Course as of 07/19/22 142 Sat July 19, 2022 1317 WBC: 5.92 [NT] 1317 Hemoglobin: 12.7 [NT] 1317 Platelet Count: 256 [NT] 1331 AST, Plasma(!): 66 [NT] 1331 ALT, Plasma(!): 72 [NT] 1331 Alkaline Phosphatase(!): 127 [NT] 1331 Total Bilirubin, Plasma(!): <0.2 [NT] 1331 Potassium: 4.2 [NT] 1331 Sodium: 141 [NT] 1336 Lipase(!): 193 [NT] 1411 Test: Negative [NT] 1411 pH, Urine(!): >=8.5 [NT] 1411 Leukocytes, Urine: Negative [NT] 1411 Nitrite, Urine: Negative [NT] ED Course User Index [NT] Ирина Oliver APRN Clinical Impressions as of 07/19/22 142 Acute on chronic pancreatitis (CMS/HCC) ED Disposition: Admit Medical Decision Making MDM: Patient was seen in ED by Ирина Oliver APRN and Dr. Ramos. Rosibel Gayle presents to ED for evaluation of abdominal pain, nausea, diarrhea. Differential diagnosis includes acute on chronic pancreatitis, gastritis, gastroenteritis, C. diff. On arrival, patient is a well-appearing 36-year-old female who was hemodynamically stable, afebrile, and in no acute distress however marginally tachycardic at 111 beats per minute. Physical exam revealed epigastric abdominal pain with guarding, no rigidity concerning for peritonitis. Evaluation includes CBC with differential, CMP, lipase, urinalysis, comprehensive GI PCR, and Clostridium difficile PCR. Labs reviewed and interpreted independently by myself and were clinically significant for nonotable leukocytosis however the patient does have an elevated lipase at 193, urinalysis did not demonstrate findings consistent with urinary tract infection including leukocytes or pyuria. Patient was symptomatically managed with 1 L of lactated Ringer's, 4 mg of IV morphine, and 4 mg of IV Zofranwith minimal improvement in her symptoms. A 2nd dose of IV pain medication was administered including 4 mg of IV morphine and 12.5 mg of IV Phenergan. At this time based upon the elevation in the patient's lipase it is believed that she is in an acute on chronic exacerbation of her pancreatitis, and interactive discussion was had with internal medicine for evaluation and recommendations. Patient was admitted to the hospital for pain and nausea control, was admitted in stable condition. Amount and/or Complexity of Data Reviewed Labs: ordered. Decision-making details documented in ED Course. Radiology: Details: The utility of advanced imaging including a CT scan without IV contrast of the abdomen andpelvis was considered however as the patient has a clear history of pancreatitis with lab abnormalities consistent with an acute on chronic flare, the risk outweighed the benefit therefore this test was omitted. ED Prescriptions None Sign Off Checklist Clinical Impression: Complete ED Disposition: Complete - Ирина Oliver APRN 07/19/22 1422 Cosigned by Kayla Ramos MD at 07/19/2022 2:29 PM EDT Associated attestation - Kayla Ramos MD - 07/19/2022 2:29 PM EDT The patient was seen only by Advanced Practice Provider (AJAY), and care was reviewed with me. * ED Triage Notes - Cici Ramos RN - 07/19/2022 11:25 AM EDT Pt presents to ED with abd pain. Hx of chronic pancreatitis. Pt states that pt has been having stabbing abd pain x 1 month however the pain nature changed to dull/ache today AM, so pt wants to check out if it's gastroenteritis. Endorses N/V/D. documented in this encounter Plan of Treatment Not on file documented as of this encounter Procedures Procedure Name Priority Date/Time Associated Diagnosis Comments IMAGING US PROCEDURE NOT PERFORMED Routine 07/22/2022 11:25 AM EDT US ABDOMEN RUQ Routine 07/20/2022 11:45 AM EDT CBC WITH AUTO DIFFERENTIAL Routine 07/20/2022 4:52 AM EDT PHOSPHORUS, PLASMA Routine 07/20/2022 4: 52 AM EDT MAGNESIUM, PLASMA Routine 07/20/2022 4:5 2 AM EDT COMPREHENSIVE METABOLIC PANEL, PLASMA Routine 07/20/2022 4:52 AM EDT ACUTE HEPATITIS PANEL STAT 07/19/2022 5:44 PM EDT URINALYSIS WITH REFLEX MICROSCOPIC STAT 07/19/2022 1:49 PM EDT CBC WITH AUTO DIFFERENTIAL STAT 07/19/2022 12:54 PM EDT TEST QUALITATIVE PLASMA STAT 07/19/2022 12:54 PM EDT LIPASE, PLASMA STAT 07/19/2022 12:54 PM EDT LIPID PROFILE, PLASMA Add-On 07/19/2022 12:54 PM EDT COMPREHENSIVE METABOLIC PANEL, PLASMA STAT 07/19/2022 12:54 PM EDT documented in this encounter Results * Imaging US Procedure Not Performed (07/22/2022 11:25 AM EDT) Narrative IMAGING - 07/22/2022 12:14 PM EDT This procedure was not performed. Procedure: US Abdomen Focused Region Pancreas Reason: Canceled us Thor Navarro MD IMG US PROCEDURES Final Resul t IMAGING * US Abdomen RUQ (07/20/2022 11:45 AM EDT) Anatomical Region Laterality Modality Gallbladder Ultrasound Impressions 07/20/2022 12:41 PM EDT Normal right upper quadrant sonogram CRITICAL RESULT: No. COMMUNICATION: Per this written report. Drafted by Gage Nelson MD on 07/20/2022 12:40 PM Final report signed by Gage Nelson MD on 07/20/2022 12:41 PM Narrative 07/20/2022 12:41 PM EDT CLINICAL INDICATION: Transaminitis TECHNIQUE: Multiplanar static and cine torres scale ultrasound images of the right upper quadrant were obtained, accompanied by selective color Doppler ultrasound images. COMPARISON: None. FINDINGS: Grayscale: Liver: Normal hepatic echotexture and echogenicity. No focal lesion Portal Vein: There is antegrade flow within the main portal vein. Gallbladder: The gallbladder is absent Common Duct: Nondilated measuring 2 mm Pancreas: Included portions are normal. Right Kidney: Normal renal cortical echogenicity. 10.5 cm. No hydronephrosis, calculus, or mass.. ?? Free Fluid: None seen Procedure Note Gage Nelson MD - 07/20/2022 CLINICAL INDICATION: Transaminitis TECHNIQUE: Multiplanar static and cine torres scale ultrasound images of the rightupper quadrant were obtained, accompanied by selective color Dopplerultrasound images. COMPARISON: None. FINDINGS: Grayscale: Liver: Normal hepatic echotexture and echogenicity. No focal lesion Portal Vein: There is antegrade flow within the main portal vein. Gallbladder: The gallbladder is absent Common Duct: Nondilated measuring 2 mm Pancreas: Included portions are normal. Right Kidney: Normal renal cortical echogenicity. 10.5 cm. Nohydronephrosis, calculus, or mass.. Free Fluid: None seen IMPRESSION: Normal right upper quadrant sonogram CRITICAL RESULT: No. COMMUNICATION: Per this written report. Drafted by Gage Nelson MD on 07/20/2022 12:40 PM Final report signed by Gage Nelson MD on 07/20/2022 12:41 PM us Jermain Sales MD IMG US PROCEDURES Final Result * (ABNORMAL) CBC and Differential (07/20/2022 4:52 AM EDT) WBC Count 7.22 3.70 - 10.30 10*3/uL LAB HEMATOLOGY METHOD 07/20/2022 5:00 AM EDT [facility] RBC Count 4.50 3.90 - 5.20 10*6/uL LAB HEMATOLOGY METHOD 07/20/2022 5:00 AM EDT [facility] HGB 12.3 11.2 - 15.7 g/dL LAB HEMATOLOGY METHOD 07/20/2022 5:00 AM EDT [facility] HCT 38.3 34.0 - 45.0 % LAB HEMATOLOGY METHOD 07/20/2022 5:00 AM EDT [facility] Platelet Count 256 155 - 369 10*3/uL LAB HEMATOLOGY METHOD 07/20/2022 5:00 AM EDT [facility] MCV 85 79 - 98 fL LAB HEMATOLOGY METHOD 07/20/2022 5:00 AM EDT [facility] MCH 27.3 26.0 - 32.0 pg LAB HEMATOLOGY METHOD 07/20/2022 5:00 AM EDT [facility] MCHC 32.1 30.7 - 35.5 g/dL LAB HEMATOLOGY METHOD 07/20/2022 5:00 AM EDT [facility] RDW 15.0(H) 11.5 - 14.5 % LAB HEMATOLOGY METHOD 07/20/2022 5:00 AM EDT [facility] MPV 9.3 8.8 - 12.5 fL LAB HEMATOLOGY METHOD 07/20/2022 5:00 AM EDT [facility] nRBC 0.0 <=0.0 per 100 WBCs LAB HEMATOLOGY METHOD 07/20/2022 5:00 AM EDT [facility] Differential Type Automated LAB HEMATOLOGY METHOD 07/20/2022 5:00 AM EDT [facility] Neutrophils % 54.0 % LAB HEMATOLOGY METHOD 07/20/2022 5:00 AM EDT [facility] Lymphocytes % 35.0 % LAB HEMATOLOGY METHOD 07/20/2022 5:00 AM EDT [facility] Monocytes % 8.0 % LAB HEMATOLOGY METHOD 07/20/2022 5:00 AM EDT [facility] Eosinophils % 1.0 % LAB HEMATOLOGY METHOD 07/20/2022 5:00 AM EDT [facility] Basophils % 1.0 % LAB HEMATOLOGY METHOD 07/20/2022 5:00 AM EDT [facility] Immature Granulocytes % 1.0 % LAB HEMATOLOGY METHOD 07/20/2022 5:00 AM EDT [facility] Neutrophils Absolute 4.03 1.60 - 6.10 10*3/uL LAB HEMATOLOGY METHOD 07/20/2022 5:00 AM EDT [facility] Lymphocytes Absolute 2.49 1.20 - 3.90 10*3/uL LAB HEMATOLOGY METHOD 07/20/2022 5:00 AM EDT [facility] Monocytes Absolute 0.54 0.30 - 0.90 10*3/uL LAB HEMATOLOGY METHOD 07/20/2022 5:00 AM EDT [facility] Eosinophils Absolute 0.04 0.00 - 0.50 10*3/uL LAB HEMATOLOGY METHOD 07/20/2022 5:00 AM EDT [facility] Basophils Absolute 0.06 0.00 - 0.10 10*3/uL LAB HEMATOLOGY METHOD 07/20/2022 5:00 AM EDT [facility] Immature Granulocytes Absolute 0.06 0.00 - 0.06 10*3/uL LAB HEMATOLOGY METHOD 07/20/2022 5:00 AM EDT [facility] Blood Venous blood specimen / Unknown Venipuncture / Unknown 07/20/2022 4:52 AM EDT 07/20/2022 4:56 AM EDT Narrative [facility] - 07/20/2022 5:00 AM EDT Therapeutic decision making should be based on absolute values, rather than percentages. us Jermain Sales MD LAB BLOOD ORDERABLES Final Res ult [facility] [address] [place] [id number] * (ABNORMAL) Phosphorus (07/20/2022 4:52 AM EDT) [facility] Phosphorus, Plasma 5.0(H) 2.5 - 4.5 mg/dL 07/20/2022 5:18 AM EDT [facility] Blood Venous blood specimen / Unknown Venipuncture / Unknown 07/20/2022 4:52 AM EDT 07/20/2022 4:56 AM EDT us Jermain Sales MD LAB BLOOD ORDERABLES Final Res ult Performing Organization Address City/[facility]/ZIP Co de Phone Number [facility] [address] [place] [address] * Magnesium (07/20/2022 4:52 AM EDT) Pathologist [facility] Magnesium, Plasma 2.1 1.9 - 2.4 mg/dL 07/20/2022 5:18 AM EDT [facility] Blood Venous blood specimen / Unknown Venipuncture / Unknown 07/20/2022 4:52 AM EDT 07/20/2022 4:56 AM EDT Jermain Sales MD LAB BLOOD ORDERABLES Final Res ult Performing Organization Address [facility] Co de Phone Number [facility] [address] [place] [address] * (ABNORMAL) Comprehensive metabolic panel (07/20/2022 4:52 AM EDT) Pathologist [facility] Glucose, Plasma 99 74 - 99 mg/dL 07/20/2022 5:18 AM EDT [facility] BUN, Plasma 7 7 - 21 mg/dL 07/20/2022 5:18 AM EDT [facility] Creatinine, Plasma 0.68 0.60 - 1.10 mg/dL 07/20/2022 5:18 AM EDT [facility] BUN/Creatinine Ratio 10 07/20/2022 5:18 AM EDT [facility] Sodium, Plasma 135(L) 136 - 145 mmol/L 07/20/2022 5:18 AM EDT [facility] Potassium, Plasma 4.4 3.7 - 4.8 mmol/L 07/20/2022 5:18 AM EDT [facility] Comment:Hemolyzed, result ma y be falsely increased. Chloride, Plasma 100 97 - 107 mmol/L 07/20/2022 5:18 AM EDT [facility] CO2, Plasma 22 22 - 29 mmol/L 07/20/2022 5:18 AM EDT [facility] Anion Gap 13 6 - 16 mmol/L 07/20/2022 5:18 AM EDT [facility] Total Calcium, Plasma 8.9 8.9 - 10.2 mg/dL 07/20/2022 5:18 AM EDT [facility] Total Protein 6.9 6.3 - 7.9 g/dL 07/20/2022 5:18 AM EDT [facility] Albumin, Plasma 4.1 3.5 - 5.2 g/dL 07/20/2022 5:18 AM EDT [facility] AST, Plasma 49(H) 11 - 32 U/L 07/20/2022 5:18 AM EDT [facility] Comment:Hemolyzed, result ma y be falsely increased. ALT, Plasma 64(H) 8 - 33 U/L 07/20/2022 5:18 AM EDT [facility] Alkaline Phosphatase, Plasma 118(H) 35 - 104 U/L 07/20/2022 5:18 AM EDT [facility] Total Bilirubin, Plasma 0.3 0.2 - 1.1 mg/dL 07/20/2022 5:18 AM EDT [facility] eGFRcr 116.6 mL/min/1.7 3m*2 07/20/2022 5:18 AM EDT [facility] Comment: Reported eGFRcr in mL/min/1.73m2 is based the CKD-EPI 2021 equation that does not use a race coefficient. Effective 09/18/21 our laboratory changed the eGFR calculation to the CKD-EPI 2021 equation from the previously reported eGFR, based on the MDRD equation. ??For comparisons between the two equations, please see laboratory website: ??[email or web address] Blood Venous blood specimen / Unknown Venipuncture / Unknown 07/20/2022 4:52 AM EDT 07/20/2022 4:56 AM EDT us Jemrain Sales MD LAB BLOOD ORDERABLES Final Res ult [facility] [address] [place] [address] * Acute Hepatitis Panel (07/19/2022 5:44 PM EDT) Hepatitis B Surf Antigen Negative Negative 07/19/2022 9:34 PM EDT [facility] Hepatitis C Antibody Negative Negative 07/19/2022 9:34 PM EDT [facility] Hepatitis A Antibody IgM Negative Negative 07/19/2022 9:34 PM EDT [facility] Hepatitis B Core Antibody IgM Negative Negative 07/19/2022 9:34 PM EDT [facility] Blood Venous blood specimen / Unknown Venipuncture / Unknown 07/19/2022 5:44 PM EDT 07/19/2022 5:52 PM EDT us Jermain Sales MD LAB BLOOD ORDERABLES Final Res ult [facility] [address] [place] [address] * (ABNORMAL) Urinalysis with reflex microscopic (07/19/2022 1:49 PM EDT) Color, Urine Yellow LAB URINALYSIS - AUTOMATED METHOD 07/19/2022 2:05 PM EDT [facility] Clarity, Urine Clear LAB URINALYSIS - AUTOMATED METHOD 07/19/2022 2:05 PM EDT [facility] Spec [place], Urine 1.008 <=1.005 to >=1.030 LAB URINALYSIS - AUTOMATED METHOD 07/19/2022 2:05 PM EDT [facility] pH, Urine >=8.5(H) 4.5 to 8 LAB URINALYSIS - AUTOMATED METHOD 07/19/2022 2:05 PM EDT [facility] Protein, Urine Negative Negative mg/dL LAB URINALYSIS - AUTOMATED METHOD 07/19/2022 2:05 PM EDT [facility] Glucose, Urine Negative Negative mg/dL LAB URINALYSIS - AUTOMATED METHOD 07/19/2022 2:05 PM EDT [facility] Ketones, Urine Negative Negative mg/dL LAB URINALYSIS - AUTOMATED METHOD 07/19/2022 2:05 PM EDT [facility] Blood, Urine Negative Negative LAB URINALYSIS - AUTOMATED METHOD 07/19/2022 2:05 PM EDT [facility] Bilirubin, Urine Negative Negative LAB URINALYSIS - AUTOMATED METHOD 07/19/2022 2:05 PM EDT [facility] Urobilinogen, Urine 0.2 0.2 to 1.0 mg/dL LAB URINALYSIS - AUTOMATED METHOD 07/19/2022 2:05 PM EDT [facility] Leukocytes, Urine Negative Negative LAB URINALYSIS - AUTOMATED METHOD 07/19/2022 2:05 PM EDT [facility] Nitrite, Urine Negative Negative LAB URINALYSIS - AUTOMATED METHOD 07/19/2022 2:05 PM EDT [facility] Urine Urine specimen obtained by clean catch procedure / Unknown Non-blood Collection / Unknown 07/19/2022 1:49 PM EDT 07/19/2022 2:02 PM EDT Ирина Mccarty Taishacamdenmike ORELLANA LAB URINE ORDERABLES Final Result [facility] [address] [place] [address] * (ABNORMAL) Lipid panel (07/19/2022 12:54 PM EDT) Cholesterol, Plasma 243(H) <200 mg/dL 07/19/2022 4:48 PM EDT [facility] Comment: Cholesterol Reference Range (age >17 years): Desirable? <200 mg/dL Borderline? 200 to 239 mg/dL Undesirable? >239 mg/dL HDL 47(L) >=50 mg/dL 07/19/2022 4:48 PM EDT [facility] Comment: HDL Cholesterol Reference Ranges (age >17 years): Female, acceptable? > or = 50 mg/dL Male, acceptable? > or = 40 mg/dL Triglycerides, Plasma 292(H) <150 mg/dL 07/19/2022 4:48 PM EDT [facility] Comment: Triglyceride Reference Range (age >17 years): Desirable:?? <150 mg/dL Borderline high:?? 150 to 199 mg/dL High:?? 200 to 499 mg/dL Very high:?? >499 mg/dL Increased risk of pancreatitis:?? >1000 mg/dL Cholesterol/HDL Ratio 5 07/19/2022 4:48 PM EDT [facility] LDL, Calculated 143(H) <100 mg/dL 4:48 PM EDT [facility] Comment: LDL Cholesterol Reference Range [...] than or equal to 12 hours? Unknown 07/19/2022 4:48 PM EDT [facility] Blood Venous blood specimen / Unknown Venipuncture / Unknown 07/19/2022 12:54 PM EDT 07/19/2022 12:59 PM EDT Jermain Sales MD LAB BLOOD ORDERABLES Final Res ult Performing Organization Address City/[facility] Co de Phone Number [facility] [address] [place] [address] * hCG qualitative (07/19/2022 12:54 PM EDT) Test Negative Negative 07/19/2022 1:27 PM EDT [facility] Blood Venous blood specimen / Unknown Venipuncture / Unknown 07/19/2022 12:54 PM EDT 07/19/2022 12:59 PM EDT [facility] - 07/19/2022 1:27 PM EDT Reference Range: Males and non- females: Negative. us Ирина Oliver APRN LAB BLOOD ORDERABLES Final Result Performing Organization Address City/[facility]/ZIP Co de Phone Number [facility] [address] [place] [address] * (ABNORMAL) Lipase (07/19/2022 12:54 PM EDT) Lipase, Plasma 193(H) 19 - 63 U/L 07/19/2022 1:27 PM EDT [facility] Blood Venous blood specimen / Unknown Venipuncture / Unknown 07/19/2022 12:54 PM EDT 07/19/2022 12:59 PM EDT Ирина Oliver APRN LAB BLOOD ORDERABLES Final Result [facility] [address] [place] [address] * (ABNORMAL) CBC w/diff (07/19/2022 12:54 PM EDT) WBC Count 5.92 3.70 - 10.30 10*3/uL LAB HEMATOLOGY METHOD 07/19/2022 1:01 PM EDT [facility] RBC Count 4.65 3.90 - 5.20 10*6/uL LAB HEMATOLOGY METHOD 07/19/2022 1:01 PM EDT [facility] HGB 12.7 11.2 - 15.7 g/dL LAB HEMATOLOGY METHOD 07/19/2022 1:01 PM EDT [facility] HCT 37.8 34.0 - 45.0 % LAB HEMATOLOGY METHOD 07/19/2022 1:01 PM EDT [facility] Platelet Count 256 155 - 369 10*3/uL LAB HEMATOLOGY METHOD 07/19/2022 1:01 PM EDT [facility] MCV 81 79 - 98 fL LAB HEMATOLOGY METHOD 07/19/2022 1:01 PM EDT [facility] MCH 27.3 26.0 - 32.0 pg LAB HEMATOLOGY METHOD 07/19/2022 1:01 PM EDT [facility] MCHC 33.6 30.7 - 35.5 g/dL LAB HEMATOLOGY METHOD 07/19/2022 1:01 PM EDT [facility] RDW 14.6(H) 11.5 - 14.5 % LAB HEMATOLOGY METHOD 07/19/2022 1:01 PM EDT [facility] MPV 8.9 8.8 - 12.5 fL LAB HEMATOLOGY METHOD 07/19/2022 1:01 PM EDT [facility] nRBC 0.0 <=0.0 per 100 WBCs LAB HEMATOLOGY METHOD 07/19/2022 1:01 PM EDT [facility] Differential Type Automated LAB HEMATOLOGY METHOD 07/19/2022 1:01 PM EDT [facility] Neutrophils % 62.0 % LAB HEMATOLOGY METHOD 07/19/2022 1:01 PM EDT [facility] Lymphocytes % 29.0 % LAB HEMATOLOGY METHOD 07/19/2022 1:01 PM EDT [facility] Monocytes % 6.0 % LAB HEMATOLOGY METHOD 07/19/2022 1:01 PM EDT [facility] Eosinophils % 0.0 % LAB HEMATOLOGY METHOD 07/19/2022 1:01 PM EDT [facility] Basophils % 1.0 % LAB HEMATOLOGY METHOD 07/19/2022 1:01 PM EDT [facility] Immature Granulocytes % 2.0 % LAB HEMATOLOGY METHOD 07/19/2022 1:01 PM EDT [facility] Neutrophils Absolute 3.73 1.60 - 6.10 10*3/uL LAB HEMATOLOGY METHOD 07/19/2022 1:01 PM EDT [facility] Lymphocytes Absolute 1.71 1.20 - 3.90 10*3/uL LAB HEMATOLOGY METHOD 07/19/2022 1:01 PM EDT [facility] Monocytes Absolute 0.33 0.30 - 0.90 10*3/uL LAB HEMATOLOGY METHOD 07/19/2022 1:01 PM EDT [facility] Eosinophils Absolute 0.02 0.00 - 0.50 10*3/uL LAB HEMATOLOGY METHOD 07/19/2022 1:01 PM EDT [facility] Basophils Absolute 0.04 0.00 - 0.10 10*3/uL LAB HEMATOLOGY METHOD 07/19/2022 1:01 PM EDT [facility] Immature Granulocytes Absolute 0.09(H) 0.00 - 0.06 10*3/uL LAB HEMATOLOGY METHOD 07/19/2022 1:01 PM EDT [facility] Blood Venous blood specimen / Unknown Venipuncture / Unknown 07/19/2022 12:54 PM EDT 07/19/2022 12:59 PM EDT [facility]arrative [facility] - 07/19/2022 1:01 PM EDT Therapeutic decision making should be based on absolute values, rather than percentages. us Ирина Oliver APRN LAB BLOOD ORDERABLES Final Result [facility] [address] [place] [address] * (ABNORMAL) CMP (07/19/2022 12:54 PM EDT) [facility] Glucose, Plasma 97 74 - 99 mg/dL 07/19/2022 1:27 PM EDT [facility] BUN, Plasma 4(L) 7 - 21 mg/dL 07/19/2022 1:27 PM EDT [facility] Creatinine, Plasma 0.51(L) 0.60 - 1.10 mg/dL 07/19/2022 1:27 PM EDT [facility] BUN/Creatinine Ratio 8 07/19/2022 1:27 PM EDT [facility] Sodium, Plasma 141 136 - 145 mmol/L 07/19/2022 1:27 PM EDT [facility] Potassium, Plasma 4.2 3.7 - 4.8 mmol/L 07/19/2022 1:27 PM EDT [facility] Chloride, Plasma 104 97 - 107 mmol/L 07/19/2022 1:27 PM EDT [facility] CO2, Plasma 24 22 - 29 mmol/L 07/19/2022 1:27 PM EDT [facility] Anion Gap 13 6 - 16 mmol/L 07/19/2022 1:27 PM EDT [facility] Total Calcium, Plasma 9.8 8.9 - 10.2 mg/dL 07/19/2022 1:27 PM EDT [facility] Total Protein 7.5 6.3 - 7.9 g/dL 07/19/2022 1:27 PM T [facility] Albumin, Plasma 4.5 3.5 - 5.2 g/dL 07/19/2022 1:27 PM EDT [facility] AST, Plasma 66(H) 11 - 32 U/L 07/19/2022 1:27 PM EDT [facility] ALT, Plasma 72(H) 8 - 33 U/L 07/19/2022 1:27 PM T [facility] Alkaline Phosphatase, Plasma 127(H) 35 - 104 U/L 07/19/2022 1:27 PM EDT [facility] Total Bilirubin, Plasma <0.2(L) 0.2 - 1.1 mg/dL 07/19/2022 1:27 PM EDT [facility] eGFRcr 125.0 mL/min/1.7 3m*2 07/19/2022 1:27 PM EDT [facility] Comment: Reported eGFRcr in mL/min/1.73m2 is based the CKD-EPI 2021 equation that does not use a race coefficient. Effective 09/18/21 our laboratory changed the eGFR calculation to the CKD-EPI 2021 equation from the previously reported eGFR, based on the MDRD equation. ??For comparisons between the two equations, please see laboratory website: ??[email or web address] Blood Venous blood specimen / Unknown Venipuncture / Unknown 07/19/2022 12:54 PM EDT 07/19/2022 12:59 PM EDT Ирина Oliver APRN LAB BLOOD ORDERABLES Final Result [facility] [address] [place] [id number] documented in this encounter Visit Diagnoses Diagnosis Acute on chronic pancreatitis (CMS/HCC)- Primary Acute on chronic pancreatitis (CMS/HCC) documented in this encounter Admitting Diagnoses Diagnosis Acute on chronic pancreatitis (CMS/HCC) documented in this encounter Administered Medications Inactive Administered Medications - up to 3 most recent administrations Medication Order MAR Action Action Date Dose Rate Site acetaminophen (Tylenol) tablet 1,000 mg 1,000 mg, Oral, Every 6 hours scheduled, First dose on Thu07/19/22 at 1800, Until Discontinued, Routine Given 07/24/2022 6:40 AM EDT 1,000 mg Given 07/24/2022 12:44 AM EDT 1,000 mg Given 07/23/2022 5:32 PM EDT 1,000 mg amitriptyline (Elavil) tablet 25 mg 25 mg, Oral, Nightly, First dose on Thu07/22/22 at 2100, Until Discontinued, Routine Given 07/23/2022 9:19 PM EDT 25 mg Given 07/22/2022 9:29 PM EDT 25 mg celecoxib (CeleBREX) capsule 200 mg 200 mg, Oral, 2 times daily, First dose on Thu07/19/22 at 2100, Until Discontinued, Routine Given 07/24/2022 8:17 AM EDT 200 mg Given 07/23/2022 9:19 PM EDT 200 mg Given 07/23/2022 9:03 AM EDT 200 mg enoxaparin (Lovenox) syringe 40 mg 40 mg, Subcutaneous, Daily, First dose on 07/19/22 at 1800, Until Discontinued, Routine Given 07/24/2022 8:17 AM EDT 40 mg Left Lower Abdomen Given 07/21/2022 9:35 AM EDT 40 mg Le ft Lower Abdomen Given 07/20/2022 8:43 AM EDT 40 mg Le ft Lower Abdomen gi cocktail oral solution 30 mL 30 mL, Oral, 4 times daily PRN, 4 doses, Starting on 07/19/22 at 1513, Until 07/21/22 at 0157, Routine, cramping, abdominal pain Given 07/21/2022 1:57 AM EDT 30 mL Given 07/20/2022 1:34 PM EDT 30 mL Given 07/20/2022 6:33 AM EDT 30 mL gi cocktail oral solution 30 mL 30 mL, Oral, Once, 1 dose, On Thu07/23/22 at 1130, Routine Given 07/23/2022 12:03 PM EDT 30 mL HYDROmorphone (Dilaudid) injection 0.25 mg 0.25 mg, Intravenous, Every 4 hours PRN, Starting on 07/19/22 at 1512, Until 07/19/22 at 2122, Routine, severe breakthrough pain, stop after 48h Given 07/19/2022 5:32 PM EDT 0.25 mg HYDROmorphone (Dilaudid) injection 0.25 mg 0.25 mg, Intravenous, Every 6 hours PRN, 5 doses, Starting on Thu07/20/22 at 0843, Until 07/21/22 at 0932, Routine, severe breakthrough pain, stop after 48h Given 07/21/2022 6:12 AM EDT 0.25 mg Given 07/21/2022 12:11 AM EDT 0.25 mg Given 07/20/2022 6:14 PM EDT 0.25 mg HYDROmorphone (Dilaudid) injection 0.5 mg 0.5 mg, Intravenous, Once, 1 dose, Starting on 07/19/22 at 1941, Until 07/19/22 at 1947, Routine, severe pain Given 07/19/2022 7:47 PM EDT 0.5 mg HYDROmorphone (Dilaudid) injection 0.5 mg 0.5 mg, Intravenous, Every 4 hours PRN, Starting on 07/19/22 at 2122, Until 07/20/22 at 0738, Routine, severe breakthrough pain, stop after 48h Given 07/20/2022 6:46 AM EDT 0.5 mg Given 07/20/2022 2:46 AM EDT 0.5 mg Given 07/19/2022 10:42 PM EDT 0.5 mg hydrOXYzine pamoate (Vistaril) capsule 25 mg 25 mg, Oral, Every 6 hours PRN, Starting on 07/20/22 at 1030, Until 07/20/22 at 1948, Routine, anxiety Given 07/20/2022 4:41 PM EDT 25 mg Given 07/20/2022 10:41 AM EDT 25 mg hydrOXYzine pamoate (Vistaril) capsule 50 mg 50 mg, Oral, Every 6 hours PRN, Starting on 07/20/22 at 1947, Until Annabel 07/24/22 at 1458, Routine, anxiety Given 07/23/2022 6:52 PM EDT 50 mg Given 07/23/2022 9:03 AM EDT 50 mg Given 07/22/2022 9:19 AM EDT 50 mg ketorolac (Toradol) injection 15 mg 15 mg, Intramuscular, Once, 1 dose, On Thu07/23/22 at 1130, Routine Given 07/23/2022 12:03 PM EDT 15 mg Right Anterior Thigh lactated Ringer's infusion 1,000 mL 1,000 mL, Intravenous, Once, 1 dose, On 07/19/22 at 1235, STAT New Bag 07/19/2022 12:50 PM EDT 1,000 mL lactated Ringer's infusion 150 mL/hr, Intravenous, Continuous, Starting on 07/19/22 at 1520, Until 07/21/22 at 0932, Routine New Bag 07/19/2022 4:07 PM EDT 150 mL/hr 150 mL/hr LORazepam (Ativan) tablet 1 mg 1 mg, Oral, Daily PRN, Starting on 07/19/22 at 1505, Until 07/20/22 at 1309, Routine, anxiety Given 07/20/2022 8:56 AM EDT 1 mg Given 07/19/2022 6:21 PM EDT 1 mg melatonin tablet 6 mg 6 mg (rounded from 5 mg), Oral, Nightly PRN, Starting on 07/19/22 at 1505, Until Annabel 07/24/22 at 1458, sleep Given 07/22/2022 12:39 AM EDT 6 mg Given 07/21/2022 1:56 AM EDT 6 mg morphine PF 4 mg 4 mg, Intravenous, Once, 1 dose, On 07/19/22 at 1235, STAT Given 07/19/2022 12:50 PM EDT 4 mg morphine PF 4 mg 4 mg, Intravenous, Once, 1 dose, On 07/19/22 at 1330, STAT Given 07/19/2022 1:35 PM EDT 4 mg NIFEdipine XL (Procardia XL) 24 hr tablet 30 mg 30 mg, Oral, Daily, First dose on 07/20/22 at 1700, Until Discontinued, Routine Given 07/23/2022 9:03 AM EDT 30 mg Given 07/22/2022 9:14 AM EDT 30 mg ondansetron (Zofran) injection 4 mg 4 mg, Intravenous, Once, 1 dose, On 07/19/22 at 1235, STAT Given 07/19/2022 12:49 PM EDT 4 mg ondansetron (Zofran) injection 4 mg 4 mg, Intravenous, Every 6 hours PRN, Starting on 07/19/22 at 1511, Until 07/20/22 at 0827, Routine, nausea, vomiting Given 07/20/2022 6:33 AM EDT 4 mg Given 07/19/2022 6:02 PM EDT 4 mg ondansetron ODT (Zofran-ODT) disintegrating tablet 4 mg 4 mg, Oral, Every 6 hours PRN, Starting on Thu07/22/22 at 1201, Until [place] 07/24/22 at 1458, Routine, nausea, vomiting Given 07/24/2022 8:16 AM EDT 4 mg Given 07/23/2022 6:32 AM EDT 4 mg Given 07/22/2022 9:25 PM EDT 4 mg oxyCODONE (Roxicodone) immediate release tablet 10 mg 10 mg, Oral, Once, 1 dose, On 07/20/22 at 2015, Routine Given 07/20/2022 7:54 PM EDT 10 mg oxyCODONE (Roxicodone) immediate release tablet 10 mg 10 mg, Oral, Every 6 hours PRN, Starting on Thu07/21/22 at 0932, Until Thu07/22/22 at 0844, Routine, moderate pain, severe pain Given 07/22/2022 3:35 AM EDT 10 mg Given 07/21/2022 9:36 PM EDT 10 mg Given 07/21/2022 4:07 PM EDT 10 mg oxyCODONE (Roxicodone) immediate release tablet 10 mg 10 mg, Oral, Every 8 hours PRN, Starting on Thu07/22/22 at 0845, Until Thu07/22/22 at 1133, Routine, moderate pain, severe pain Given 07/22/2022 9:14 AM EDT 10 mg oxyCODONE (Roxicodone) immediate release tablet 15 mg 15 mg, Oral, Every 6 hours PRN, Starting on 07/19/22 at 2122, Until 07/19/22 at 2319, Routine, moderate pain, severe pain Given 07/19/2022 9:39 PM EDT 15 mg oxyCODONE (Roxicodone) immediate release tablet 15 mg 15 mg, Oral, Every 4 hours PRN, Starting on 07/19/22 at 2330, Until Thu07/20/22 at 0153, Routine, moderate pain, severe pain Given 07/20/2022 1:42 AM EDT 15 mg oxyCODONE (Roxicodone) immediate release tablet 5 mg 5 mg, Oral, Every 6 hours PRN, Starting on 07/19/22 at 1512, Until 07/19/22 at 2122, Routine, moderate pain, severe pain Given 07/19/2022 6:54 PM EDT 5 mg oxyCODONE (Roxicodone) immediate release tablet 5 mg 5 mg, Oral, Every 6 hours PRN, Starting on Thu07/20/22 at 0844, Until Thu07/21/22 at 0932, Routine, moderate pain, severe pain Given 07/21/2022 4:42 AM EDT 5 mg Given 07/20/2022 10:41 PM EDT 5 mg Given 07/20/2022 4:41 PM EDT 5 mg pancrelipase (Creon) 6000 unit capsule 2 capsule, Oral, 3 times daily with meals, First dose on Thu07/22/22 at 1230, Until Discontinued, Routine Given 07/24/2022 8:17 AM EDT 2 capsules Given 07/23/2022 5:32 PM EDT 2 capsules Given 07/23/2022 12:03 PM EDT 2 capsules pantoprazole (Protonix) EC tablet 40 mg 40 mg, Oral, 2 times daily, First dose on Thu07/19/22 at 2100, Until Discontinued, Routine Given 07/24/2022 8:23 AM EDT 40 mg Given 07/23/2022 9:19 PM EDT 40 mg Given 07/23/2022 9:03 AM EDT 40 mg pregabalin (Lyrica) capsule 300 mg 300 mg, Oral, 2 times daily, First dose on Thu07/19/22 at 2100, Until Discontinued Given 07/24/2022 8:17 AM EDT 300 mg Given 07/23/2022 9:18 PM EDT 300 mg Given 07/23/2022 9:03 AM EDT 300 mg prochlorperazine (Compazine) injection 2.5 mg 2.5 mg, Intravenous, Every 6 hours PRN, Starting on Thu07/19/22 at 1942, Until Thu07/20/22 at 0844, Routine, nausea, vomiting Given 07/19/2022 7:49 PM EDT 2 .5 mg prochlorperazine (Compazine) tablet 5 mg 5 mg, Oral, Every 6 hours PRN, Starting on Thu07/20/22 at 0844, Until [facility] 07/24/22 at 1458, Routine, nausea, vomiting Given 07/23/2022 9:06 AM EDT 5 mg Given 07/22/2022 9:14 AM EDT 5 mg Given 07/21/2022 9:36 PM EDT 5 mg promethazine (Phenergan) injection 12.5 mg 12.5 mg, Intravenous, Once, 1 dose, On Thu07/19/22 at 1330, STAT Given 07/19/2022 1:41 PM EDT 12.5 mg sodium chloride 0.9 % flush 10 mL 10 mL, Intravenous, Every 8 hours PRN, Starting on Thu07/19/22 at 1510, Until Annabel 07/24/22 at 1458, Routine, line care sodium chloride 0.9 % flush 10 mL 10 mL, Intravenous, As needed, Starting on 07/19/22 at 1510, Until Annabel 07/24/22 at 1458, Routine, line care traMADol (Ultram) tablet 100 mg 100 mg, Oral, Every 6 hours PRN, Starting on 07/22/22 at 1603, Until Annabel 07/24/22 at 1458, Routine, severe pain Given 07/24/2022 6:40 AM EDT 100 mg Given 07/24/2022 12:44 AM EDT 100 mg Given 07/23/2022 6:52 PM EDT 100 mg traMADol (Ultram) tablet 50 mg 50 mg, Oral, Every 6 hours PRN, Starting on Thu07/22/22 at 1132, Until 07/22/22 at 1604, Routine, severe pain Given 07/22/2022 11:46 AM EDT 50 mg traMADol (Ultram) tablet 50 mg 50 mg, Oral, Every 6 hours PRN, Starting on 07/22/22 at 1603, Until [place]abel 07/24/22 at 1458, Routine, moderate pain zolpidem (Ambien) tablet 5 mg 5 mg, Oral, Once, 1 dose, On e 07/22/22 at 0245, Routine Given 07/22/2022 2:25 AM EDT 5 mg documented in this encounter Active and Recently Administered Medications Times are shown in EDT. Scheduled Medication Order 07/22/2022 07/23/2022 07/24/2022 acetaminophen (Tylenol) tablet 1,000 mg 1,000 mg, Oral, Every 6 hours scheduled, First dose on 07/19/22 at 1800, Until Discontinued, Routine 0517 (Given - Provider: Clarisa Ulloa RN)1135 (Given - Provider: Clif Khoury RN)1743 (Given - Provider: Clif Khoury RN)2351 (Given - Provider: Paige Rodriguez) 0632 (Given - Provider: Paige Rodriguez)1203 (Given - Provider: Chelsie Richardson LPN)1732 (Given - Provider: Chelsie Richardson LPN) 0044 (Given - Provider: Paige Rodriguez)0640 (Given - Provider: Paige Rodriguez)1200 (Canceled Entry - Provider: Automatic Discharge Provider - Comment: Automatically canceled at discontinue of medication order) amitriptyline (Elavil) tablet 25 mg 25 mg, Oral, Nightly, First dose on Thu07/22/22 at 2100, Until Discontinued, Routine 2128 (Given - Provider: Paige Rodriguez) 2118 (Given - Provider: Paige Rodriguez) celecoxib (CeleBREX) capsule 200 mg 200 mg, Oral, 2 times daily, First dose on Thu07/19/22 at 2100, Until Discontinued, Routine 0914 (Given - Provider: Clif Khoury RN)2129 (Given - Provider: Paige Rodriguez) 09 (Given - Provider: Chelsie Richardson LPN)2118 (Given - Provider: Paige Rodriguez) 0817 (Given - Provider: Susan Russ RN) enoxaparin (Lovenox) syringe 40 mg 40 mg, Subcutaneous, Daily, First dose on Thu07/19/22 at 1800, Until Discontinued, Routine 0915 (Not Given - Provider: Clif Khoury RN - Reason: Patient/family refused) 0904 (Not Given - Provider: Chelsie Richardson LPN - Reason: Patient/family refused) 0817 (Given - Provider: Susan Russ RN) gi cocktail oral solution 30 mL (COMPLETED) 30 mL, Oral, Once, 1 dose, On Thu07/23/22 at 1130, Routine 1203 (Given - Provider: Chelsie Richardson LPN) ketorolac (Toradol) injection 15 mg (COMPLETED) 15 mg, Intramuscular, Once, 1 dose, On Thu07/23/22 at 1130, Routine 1203 (Given - Provider: Chelsie Richardson LPN) NIFEdipine XL (Procardia XL) 24 hr tablet 30 mg (CANCELED) 30 mg, Oral, Daily, First dose on Thu07/20/22 at 1700, Until Discontinued, Routine 0914 (Given - Provider: Clif Khoury RN) 0903 (Given - Provider: Chelsie Richardson LPN) pancrelipase (Creon) 6000 unit capsule 2 capsule, Oral, 3 times daily with meals, First dose on Thu07/22/22 at 1230, Until Discontinued, Routine 1146 (Given - Provider: Clif Khoury RN)1743 (Given - Provider: Clif Khoury RN) 0903 (Given - Provider: Chelsie Richardson LPN)1203 (Given - Provider: Chelsie Richardson LPN)1732 (Given - Provider: Chelsie Richardson LPN) 0817 (Given - Provider: Susan Russ, CHANDNI)1230 (Canceled Entry - Provider: Automatic Discharge Provider - Comment: Automatically canceled at discontinue of medication order) pantoprazole (Protonix) EC tablet 40 mg 40 mg, Oral, 2 times daily, First dose on 07/19/22 at 2100, Until Discontinued, Routine 0914 (Given - Provider: Clif Khoury RN)212 (Given - Provider: Paige Rodriguez) 0903 (Given - Provider: Chelsie Richardson LPN)211 (Given - Provider: Paige Rodriguez) 0823 (Given - Provider: Susan Russ, CHANDNI) pregabalin (Lyrica) capsule 300 mg 300 mg, Oral, 2 times daily, First dose on Thu07/19/22 at 2100, Until Discontinued 0914 (Given - Provider: Clif Khoury RN)2130 (Given - Provider: Paige Rodriguez) 0903 (Given - Provider: Chelsie Richardson LPN)2118 (Given - Provider: Paige Rodriguez) 0817 (Given - Provider: Susan Russ, CHANDNI) zolpidem (Ambien) tablet 5 mg (COMPLETED) 5 mg, Oral, Once, 1 dose, On Thu07/22/22 at 0245, Routine 0225 (Given - Provider: Clarisa Ulloa RN) PRN Medication Order 07/22/2022 07/23/2022 07/24/2022 hydrOXYzine pamoate (Vistaril) capsule 50 mg 50 mg, Oral, Every 6 hours PRN, Starting on Thu07/20/22 at 1947, Until [place] 07/24/22 at 1458, Routine, anxiety 0919 (Given - Provider: Clif Khoury RN) 0903 (Given - Provider: Chelsie Richardson LPN)1852 (Given - Provider: Chelsie Richardson LPN) melatonin tablet 6 mg 6 mg (rounded from 5 mg), Oral, Nightly PRN, Starting on 07/19/22 at 1505, Until Annabel 07/24/22 at 1458, sleep 0039 (Given - Provider: Clarisa Ulloa RN) ondansetron ODT (Zofran-ODT) disintegrating tablet 4 mg 4 mg, Oral, Every 6 hours PRN, Starting on Thu07/22/22 at 1201, Until Annabel 07/24/22 at 1458, Routine, nausea, vomiting 1244 (Given - Provider: Clif Khoury, CHANDNI)2125 (Given - Provider: Paige Rodriguez) 0632 (Given - Provider: Paige Rodriguez) 0816 (Given - Provider: Susan Russ RN) oxyCODONE (Roxicodone) immediate release tablet 10 mg (CANCELED) 10 mg, Oral, Every 6 hours PRN, Starting on 07/21/22 at 0932, Until Thu07/22/22 at 0844, Routine, moderate pain, severe pain 0335 (Given - Provider: Clarisa Ulloa, CHANDNI) oxyCODONE (Roxicodone) immediate release tablet 10 mg (CANCELED) 10 mg, Oral, Every 8 hours PRN, Starting on Thu07/22/22 at 0845, Until Thu07/22/22 at 1133, Routine, moderate pain, severe pain 0914 (Given - Provider: Clif Khoury, CHANDNI) prochlorperazine (Compazine) tablet 5 mg 5 mg, Oral, Every 6 hours PRN, Starting on 07/20/22 at 0844, Until Annabel 07/24/22 at 1458, Routine, nausea, vomiting 0914 (Given - Provider: Clif Khoury RN) 0906 (Given - Provider: Chelsie Richardson LPN) sodium chloride 0.9 % flush 10 mL(Linked Group 1) 10 mL, Intravenous, Every 8 hours PRN, Starting on 07/19/22 at 1510, Until Annabel 07/24/22 at 1458, Routine, line care sodium chloride 0.9 % flush 10 mL(Linked Group 1) 10 mL, Intravenous, As needed, Starting on 07/19/22 at 1510, Until Annabel 07/24/22 at 1458, Routine, line care traMADol (Ultram) tablet 100 mg(Linked Group 2) 100 mg, Oral, Every 6 hours PRN, Starting on 07/22/22 at 1603, Until Annabel 07/24/22 at 1458, Routine, severe pain 1833 (Given - Provider: Clif Khoury RN) 0034 (Given - Provider: Paige Rodriguez)0632 (Given - Provider: Paige Rodriguez)1238 (Given - Provider: Chelsie Richardson LPN)1852 (Given - Provider: Chlesie Richardson LPN) 0044 (Given - Provider: Paige Rodriguze)0640 (Given - Provider: Paige Rodriguez) traMADol (Ultram) tablet 50 mg (CANCELED) 50 mg, Oral, Every 6 hours PRN, Starting on 07/22/22 at 1132, Until 07/22/22 at 1604, Routine, severe pain 1146 (Given - Provider: Clif Khoury, CHANDNI) traMADol (Ultram) tablet 50 mg(Linked Group 2) 50 mg, Oral, Every 6 hours PRN, Starting on 07/22/22 at 1603, Until Annabel 07/24/22 at 1458, Routine, moderate pain 1833 (See Alternative - Provider: Clif Khoury RN) 0034 (See Alternative - Provider: Paige Rodriguez)0632 (See Alternative - Provider: Paige Rodriguez)1238 (See Alternative - Provider: Chelsie Richardson LPN)1852 (See Alternative - Provider: Chelsie Richardson LPN) 0044 (See Alternative - Provider: Paige Rodriguez)0640 (See Alternative - Provider: Paige Rodriguez) Linked Groups Order Group 1: Insert peripheral IV (COMPLETED) Once, On 07/19/22 at 1511, For 1 occurrence And Saline lock IV (COMPLETED) Once, On 07/19/22 at 1511, For 1 occurrence And sodium chloride 0.9 % flush 10 mLJump to med 10 mL, Intravenous, Every 8 hours PRN, Starting on 07/19/22 at 1510, Until Annabel 07/24/22 at 1458, Routine, line care And sodium chloride 0.9 % flush 10 mLJump to med 10 mL, Intravenous, As needed, Starting on 07/19/22 at 1510, Until Annabel 07/24/22 at 1458, Routine, line care Group 2: traMADol (Ultram) tablet 50 mgJump to med 50 mg, Oral, Every 6 hours PRN, Starting on 07/22/22 at 1603, Until Annabel 07/24/22 at 1458, Routine, moderate pain Or traMADol (Ultram) tablet 100 mgJump to med 100 mg, Oral, Every 6 hours PRN, Starting on 07/22/22 at 1603, Until Annabel 07/24/22 at 1458, Routine, severe pain documented in this encounter Additional Health Concerns Infection Onset Date Last Indicated Resolved Time C. difficile Rule-Out Comment:Patient has not had a BM since admitted to the unit. 07/19/2022 07/19/2022 07/21/2022 1 1:51 AM EDT Gastrointestinal Rule-Out 07/19/2022 07/19/2022 10:49 AM EDT Assessment Noted Time A fall risk assessment has been complete d for the patient 11/21/2020 2:30 PM EDT documented as of this encounter Care Teams Test Operator Relationship Specialty Start Date End Date Elmo Escobar MD PCP - General 10/18/20 01/05/23 documented as of this encounter
--- OUTSIDE RECORDS SUMMARY | 2024-02-03 15:21 | XMS_ITS | Encounter Summary ---
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 07/25/19 23 Cholecalciferol (VITAMIN D3 PO) Take by mouth 1 (one) time each day. 07/21/19 23 Cyanocobalamin (VITAMIN B12 PO) Take by mouth 1 (one) time each day. 07/21/19 23 ketoconazole (NIZOral) 2 % cream Apply 1 application topically 1 (one) time each day. 07/21/19 23 Latuda 40 MG tablet Take 1 tablet (40 mg total) by mouth 1 (one) time each day with breakfast. 12 03/22/2022 07/21/19 23 lidocaine (Lidoderm) 5 % patch Apply 1 patch topically if needed for mild pain. Remove & discard patch within 12 hours or as directed by . 07/21/19 23 LORazepam (Ativan) 1 MG tablet Take 1 mg by mouth 2 (two) times a day if needed for anxiety. 12/17/2021 07/25/19 23 Melatonin 5 MG tablet tablet Take 5 mg by mouth at night if needed for sleep. 07/21/19 23 ondansetron ODT (Zofran-ODT) 4 MG disintegrating tablet Take 1 tablet (4 mg total) by mouth every 6 (six) hours if needed for nausea. 12 tablet 06/14/2022 07/25/19 23 oxyCODONE-acetamino phen (Percocet) 7.5-325 MG tablet Take 1 tablet by mouth 3 (three) times a day if needed for severe pain. 07/21/19 23 pancrelipase, Idf-Dkjg-Upix, (Creon) 78139-57823 units capsule Take 2 capsules by mouth 3 (three) times a day with meals. 03/22/2022 07/21/19 23 pantoprazole (Protonix) 40 MG EC tablet Take 1 tablet (40 mg total) by mouth 2 (two) times a day. Do not crush, chew, or split. 120 tablet 04/20/2021 07/25/19 23 pregabalin (Lyrica) 100 MG capsule Take 1 capsule (100 mg) by mouth 3 (three) times a day. 10/28/19 24 promethazine (Phenergan) 25 MG tablet Take 25 mg by mouth every 6 (six) hours if needed. 12/15/2021 08/09/19 23 promethazine (Phenergan) 25 MG tablet Take 0.5 tablets (12.5 mg total) by mouth every 6 (six) hours if needed for nausea or vomiting. 30 tablet 06/19/2022 07/21/19 23 sucralfate (Carafate) 1 GM/10ML suspension Take 1 g by mouth 4 (four) times a day. 07/25/19 23 venlafaxine XR (Effexor-XR) 150 MG 24 hr capsule Take 1 capsule (150 mg total) by mouth 1 (one) time each day. 03/22/2022 07/21/19 23 documented as of this encounter Miscellaneous Notes * ED Provider Notes - Lisa Ashton - 07/15/2022 3:01 PM EDT - HPI Chief Complaint Patient presents with Abdominal Pain Lila Mcnally is a 36 y.o. female who presents to the Emergency Department with complaints of abdominal pain with nausea, vomiting and diarrhea. She states she has long standing hx of pancreatitis. Was recently admitted to Obs Unit at [facility], lipase was 51, last CT was 06/14/22 with no pancreatitis. She states since being home on 07/11/22 from Obs she has not been well. She has been in bed with pain and vomiting and diarrhea. No fevers. No melena, hematochezia or hematemesis. She saw her GI provider outside hospital yesterday, who increased her Pantoprazole. She notes no improvement. Denies f/c, cp, soa, urinary symptoms or neuro changes. No data recorded Patient History Past Medical [...] chest pain and palpitations. Gastrointestinal: Positive for diarrhea, nausea and vomiting. Negative for abdominal pain. Genitourinary: Negative for dysuria and hematuria. Musculoskeletal: Negative for arthralgias and back pain. Skin: Negative for color change and rash. Neurological: Negative for seizures and syncope. All other systems reviewed and are negative. Physical Exam ED Triage Vitals [07/15/22 1507] Temp Heart Rate Resp BP 36.7 ??C (98 ??F) 106 16 (!) 155/100 SpO2 Temp Source Heart Rate Source Patient [...] tenderness and tenderness in the epigastric area. Musculoskeletal: General: No swelling. Cervical back: Neck supple. Skin: General: Skin is warm and dry. Capillary Refill: Capillary refill takes less than 2 seconds. Neurological: Mental Status: She is alert. Psychiatric: Mood and Affect: Mood normal. ED Course & MDM ED Course as of 07/15/221809July 15, 2022 1611 WBC: 5.90 [RUFION] 1611 Hemoglobin: 12.0 [RUFINO] 1611 Hematocrit: 36.3 [RUFINO] 1633 Lipase: 31 [RUFINO] ED Course User Index [RFUINO] DANIA Bennett Clinical Impressions as of 07/15/221809 Chronic abdominal pain ED Disposition: Discharge Medical Decision Making Lila Mcnally is a 36 yrs old female presents today for Patient presents with: Abdominal Pain with vomiting and diarrhea. Patient VSS. Differential diagnosis of abdominal pain includes, but is not limited to, AAA, appendicitis, ectopic, torsion, PID, diverticulitis, pancreatitis, gastritis, IBD, cholecystitis, SBO/LBO, mesenteric ischemia, intra-abdominal abscess, and perforated bowel. All of these have been considered. In order to fully explore differential these tests and treatments were ordered. Orders Placed This Encounter CBC CMP Magnesium Lipase Lactic acid, venous Insert peripheral IV Medications sucralfate (Carafate) 1 GM/10ML suspension 1 g (has no administration in time range) gi cocktail oral solution 30 mL (has no administration in time range) sodium chloride 0.9 % infusion 1,000 mL (has no administration in time range) promethazine (Phenergan) injection 25 mg (has no administration in time range) Labs collected and note no leukocytosis or anemia, no lactic acidosis or elevated lipase. Mild transaminitis noted with AST 37 ALT 59 and alk-phos 129 bilirubin 0.2, she is a history of a cholecystectomy. She was given Phenergan, GI cocktail and Carafate. She refused the Tylenol stating she would already taken some at home. I then ordered Toradol and Robaxin. We would a long discussion about not treating her chronic pancreatitis with narcotics specifically when she saw GI in clinic yesterday and needs to follow-up with pain management. She continued to be concerned about her history of gastric ulcers therefore an acute abdomen was ordered, she declined to have this performed. She is ready to go home, she wishes to have opiate pain medicaiton and I instructed this is not going to benefit her chronic pancreatitis. She wishes to be discharged, she then requested to speak with the attending. ED Prescriptions None Sign Off Checklist Clinical Impression: Complete ED Disposition: Complete - DANIA Bennett 07/15/22 1722 DANIA Bennett 07/15/22 1810 Cosigned by Benjamin Munguia MD at 07/15/2022 6:57 PM EDT Associated attestation - Benjamin Munguia MD - 07/15/2022 6:57 PM EDT I attest to being involved in providing substantive time in patient care. * ED Triage Notes - Andrew Gonzalez RN - 07/15/2022 3:01 PM EDT Pt with c/o luq abd pain, n/v/d x 3 days. documented in this encounter Plan of Treatment Not on file documented as of this encounter Procedures Procedure Name Priority Date/Time Associated Diagnosis Comments LACTATE, VENOUS STAT 07/15/2022 4:04 PM EDT CBC W/O DIFFERENTIAL STAT 07/15/2022 4:04 PM EDT MAGNESIUM, PLASMA STAT 07/15/2022 4:0 4 PM EDT LIPASE, PLASMA STAT 07/15/2022 4:04 PM EDT COMPREHENSIVE METABOLIC PANEL, PLASMA STAT 07/15/2022 4:04 PM EDT documented in this encounter Results * Lactic acid, venous (07/15/2022 4:04 PM EDT) Pathologist [facility] Lactate, Venous, Whole Blood 1.6 0.5 - 2.2 mmol/L LAB HEMATOLOGY METHOD 07/15/2022 4:11 PM EDT [facility] Blood Venous blood specimen / Unknown Venipuncture / Unknown 07/15/2022 4:04 PM EDT 07/15/2022 4:09 PM EDT Lisa B O'Reel PA LAB BLOOD ORDERABLES Final R esult [facility] [address] [place] [address] * Lipase (07/15/2022 4:04 PM EDT) [facility] Lipase, Plasma 31 19 - 63 U/L 07/15/2022 4:32 PM EDT [facility] Blood Venous blood specimen / Unknown Venipuncture / Unknown 07/15/2022 4:04 PM EDT 07/15/2022 4:09 PM EDT Lisa B O'Reel PA LAB BLOOD ORDERABLES Final R esult [facility] [address] [place] [address] * Magnesium (07/15/2022 4:04 PM EDT) Pathologist [facility] Magnesium, Plasma 2.0 1.9 - 2.4 mg/dL 07/15/2022 4:32 PM EDT [facility] Blood Venous blood specimen / Unknown Venipuncture / Unknown 07/15/2022 4:04 PM EDT 07/15/2022 4:09 PM EDT us Lisa NAJERA LAB BLOOD ORDERABLES Final R esult [facility] [address] [place] [address] * (ABNORMAL) CMP (07/15/2022 4:04 PM EDT) Glucose, Plasma 101(H) 74 - 99 mg/dL 07/15/2022 4:32 PM EDT [facility] BUN, Plasma 5(L) 7 - 21 mg/dL 07/15/2022 4:32 PM EDT [facility] Creatinine, Plasma 0.46(L) 0.60 - 1.10 mg/dL 07/15/2022 4:32 PM EDT [facility] BUN/Creatinine Ratio 11 07/15/2022 4:32 PM EDT [facility] Sodium, Plasma 140 136 - 145 mmol/L 07/15/2022 4:32 PM EDT [facility] Potassium, Plasma 4.0 3.7 - 4.8 mmol/L 07/15/2022 4:32 PM EDT [facility] Chloride, Plasma 107 97 - 107 mmol/L 07/15/2022 4:32 PM EDT [facility] CO2, Plasma 21(L) 22 - 29 mmol/L 07/15/2022 4:32 PM EDT [facility] Anion Gap 12 6 - 16 mmol/L 07/15/2022 4:32 PM EDT [facility] Total Calcium, Plasma 9.0 8.9 - 10.2 mg/dL 07/15/2022 4:32 PM EDT [facility] Total Protein 6.7 6.3 - 7.9 g/dL 07/15/2022 4:32 PM EDT [facility] Albumin, Plasma 4.1 3.5 - 5.2 g/dL 07/15/2022 4:32 PM EDT [facility] AST, Plasma 37(H) 11 - 32 U/L 07/15/2022 4:32 PM EDT [facility] ALT, Plasma 59(H) 8 - 33 U/L 07/15/2022 4:32 PM EDT [facility] Alkaline Phosphatase, Plasma 129(H) 35 - 104 U/L 07/15/2022 4:32 PM EDT [facility] Total Bilirubin, Plasma <0.2(L) 0.2 - 1.1 mg/dL 07/15/2022 4:32 PM EDT [facility] eGFRcr 128.2 mL/min/1.7 3m*2 07/15/2022 4:32 PM EDT [facility] Comment: Reported eGFRcr in mL/min/1.73m2 is based the CKD-EPI 2020 equation that does not use a race coefficient. Effective 09/18/21 our laboratory changed the eGFR calculation to the CKD-EPI 1 equation from the previously reported eGFR, based on the MDRD equation. ??For comparisons between the two equations, please see laboratory website: ??[email or web address] Blood Venous blood specimen / Unknown Venipuncture / Unknown 07/15/2022 4:04 PM EDT 07/15/2022 4:09 PM EDT us Lisa NAJERA LAB BLOOD ORDERABLES Final R esult [facility] [address] [place] [address] * (ABNORMAL) CBC (07/15/2022 4:04 PM EDT) WBC Count 5.90 3.70 - 10.30 10*3/uL LAB HEMATOLOGY METHOD 07/15/2022 4:11 PM EDT [facility] RBC Count 4.38 3.90 - 5.20 10*6/uL LAB HEMATOLOGY METHOD 07/15/2022 4:11 PM EDT [facility] HGB 12.0 11.2 - 15.7 g/dL LAB HEMATOLOGY METHOD 07/15/2022 4:11 PM EDT [facility] HCT 36.3 34.0 - 45.0 % LAB HEMATOLOGY METHOD 07/15/2022 4:11 PM EDT [facility] Platelet Count 273 155 - 369 10*3/uL LAB HEMATOLOGY METHOD 07/15/2022 4:11 PM EDT [facility] MCV 83 79 - 98 fL LAB HEMATOLOGY METHOD 07/15/2022 4:11 PM EDT [facility] MCH 27.4 26.0 - 32.0 pg LAB HEMATOLOGY METHOD 07/15/2022 4:11 PM EDT [facility] MCHC 33.1 30.7 - 35.5 g/dL LAB HEMATOLOGY METHOD 07/15/2022 4:11 PM EDT [facility] RDW 14.9(H) 11.5 - 14.5 % LAB HEMATOLOGY METHOD 07/15/2022 4:11 PM EDT [facility] MPV 9.3 8.8 - 12.5 fL LAB HEMATOLOGY METHOD 07/15/2022 4:11 PM EDT [facility] nRBC 0.0 <=0.0 per 100 WBCs LAB HEMATOLOGY METHOD 07/15/2022 4:11 PM EDT [facility] Blood Venous blood specimen / Unknown Venipuncture / Unknown 07/15/2022 4:04 PM EDT 07/15/2022 4:09 PM EDT Lisa NAJERA LAB BLOOD ORDERABLES Final R esult [facility] [address] [place] [address] documented in this encounter Visit Diagnoses Diagnosis Chronic abdominal pain- Primary Abdominal pain, unspecified site documented in this encounter Administered Medications Inactive Administered Medications - up to 3 most recent administrations Medication Order MAR Action Action Date Dose Rate Site gi cocktail oral solution 30 mL 30 mL, Oral, Once, 1 dose, On Thu07/15/22 at 1530, STAT Given 07/15/2022 3:34 PM EDT 30 mL ketorolac (Toradol) injection 15 mg 15 mg, Intramuscular, Once, 1 dose, On Thu07/15/22 at 1645, STAT Given 07/15/2022 4:53 PM EDT 15 mg Right Deltoid promethazine (Phenergan) tablet 25 mg 25 mg, Oral, Once, 1 dose, On Thu07/15/22 at 1555, STAT Given 07/15/2022 4:06 PM EDT 25 mg sucralfate (Carafate) 1 GM/10ML suspension 1 g 1 g, Oral, Once, 1 dose, On Thu07/15/22 at 1530, STAT Given 07/15/2022 3:34 PM EDT 1 g documented in this encounter Active and Recently Administered Medications Times are shown in EDT. 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) gi cocktail oral solution 30 mL (COMPLETED) 30 mL, Oral, Once, 1 dose, On 07/15/22 at 1530, STAT 1534 (Given - Provid er: Marybeth Lopez RN) ketorolac (Toradol) injection 15 mg (COMPLETED) 15 mg, Intramuscular, Once, 1 dose, On 07/15/22 at 1645, STAT 1653 (Given - Provid er: Shelby Rueda RN) methocarbamol (Robaxin) tablet 1,500 mg 1,500 mg, Oral, Once, 1 dose, On 07/15/22 at 1645, STAT 1645 (Canceled Entry - Provider: Automatic Discharge Provider - Comment: Automatically canceled at discontinue of medication order) promethazine (Phenergan) tablet 25 mg (COMPLETED) 25 mg, Oral, Once, 1 dose, On 07/15/22 at 1555, STAT 1606 (Given - Provid er: Shelby Rueda RN) sodium chloride 0.9 % infusion 1,000 mL 1,000 mL, Intravenous, Once, 1 dose, On 07/15/22 at 1530, STAT 1615 (Not Given - Pr ovider: Shelby Rueda RN - Reason: Hold for condition: must add comment - Comment: Unable to get IV access. DANIA Cardoza notified.) sucralfate (Carafate) 1 GM/10ML suspension 1 g (COMPLETED) 1 g, Oral, Once, 1 dose, On 07/15/22 at 1530, STAT 1534 (Given - Provid er: Marybeth Lopez RN) documented in this encounter Additional Health Concerns Assessment Noted Time A fall risk assessment has been complete d for the patient 11/21/2020 2:30 PM EDT documented as of this encounter Care Teams It Business Systems Analyst Relationship Specialty Start Date End Date Elmo Escobar MD PCP - General 10/18/20 01/05/23 Tiffanie Gonzalez, NAIN VALUE-[employer]ED [place] [address] Care Coordination Nurse 06/20/2207/18 documented as of this encounter
--- OUTSIDE RECORDS SUMMARY | 2024-02-03 15:21 | XMS_ITS | Encounter Summary ---
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
--- OUTSIDE RECORDS SUMMARY | 2024-02-03 15:21 | XMS_ITS | Encounter Summary ---
Author Organization Healthcare Address [address] [place] [address] Care Team Providers Care Outcomes Analyst Name Role Phone Elmo Escobar MD Primary Care Provider [phone] Tiffanie Gonzalez LPN Unavailable Unavailabl e Reason for Visit * Reason Comments ED Care Coordination Encounter Details Date Type Department Care Team (Late st Contact Info) Description 06/20/2022 Patient Outreach POPULATION [address] [address] Tiffanie Gonzalez LPN VALUE-BASED [employer]FORMATION [place] [address] ED Care Coordination Social History Tobacco Use Types Packs/Day Years [...] drink first t 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 Patient reports that she ate spaghetti last night then began having epigastric abdominal pain, multiple episodes of nonbloody emesis. She reports slight associated SOA secondary to the pain, no CP. She endorses diarrhea. . She had CT at her most recent visit 06/14 without findings concerning for pancreatitis. She finished her last menstrual period yesterday, denies pelvic pain. Per ED Discharge Summary Plan: She was advised he for palatal he with her primary care provider in just a few days, she for follow-up with GI next month. Return to ED with any new or worsening symptoms. She was given a prescription of oxycodone for pain and refill of phenergan. Medication started/stopped/changed at ED Discharge: CHANGE how you take: oxyCODONE (Roxicodone) promethazine (Phenergan) ASK how to take: oxyCODONE 5 MG immediate release tablet (Roxicodone) ------- 06/20/22 @ 4467 call attempt 1, no answer. 06/23/22 @ 1020 call attempt 2 no answer looks like she is in the ED. 06/24/22 @ 4020 call attempt 3, no answer. documented in this encounter Plan of Treatment Not on file documented as of this encounter Visit Diagnoses Not on filedocumented in this encounter Additional Health Concerns Assessment Noted Time A fall risk assessment has been complete d for the patient 11/21/2020 2:30 PM EDT documented as of this encounter Care Teams Outcomes Analyst Relationship Specialty Start Date End Date Elmo Escobar MD PCP - General 10/18/20 01/05/23 Tiffanie Gonzalez LPN VALUE-BASED [place]FORMATION [place] [address] Care Coordination Nurse 06/20/2207/18 documented as of this encounter
--- OUTSIDE RECORDS SUMMARY | 2024-02-03 15:21 | XMS_ITS | Encounter Summary ---
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
--- OUTSIDE RECORDS SUMMARY | 2024-02-03 15:21 | XMS_ITS | Encounter Summary ---
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
--- OUTSIDE RECORDS SUMMARY | 2024-02-03 15:21 | XMS_ITS | Encounter Summary ---
Author Organization Healthcare Address [address] [place] [address] Care Team Providers Care Imaging Tech Name Role Phone Elmo Escobar MD Primary Care Provider [phone] Encounter Details Date Type Department Care Team (Latest Contact Info) Description 09/13/2022 Travel Social History Tobacco Use Types Packs/Day [...] drink first t caleb in the morning (EYE-HOUSE BUILDER) to steady your nerves or to [...] documented as of this encounter Care Teams Imaging Tech Relationship Specialty Start Date End Date Elmo Escobar MD PCP - General 10/18/20 01/05/23 documented as of this encounter
--- OUTSIDE RECORDS SUMMARY | 2024-02-03 15:21 | XMS_ITS | Encounter Summary ---
Author Organization Healthcare Address [address] [place] [address] Care Team Providers Care Healthcare Advisory Services Manager Name Role Phone Elmo Escobar MD Primary Care Provider [phone] Encounter Details Date Type Department Care Team (Latest Contact Info) Description 08/08/2022 Travel Social History Tobacco Use Types Packs/Day [...] drink first t caleb in the morning (EYE-GAS LEAK TESTER) to steady your nerves or to [...] as of this encounter Care Teams Healthcare Advisory Services Manager Relationship Specialty Start Date End Date Elmo Escobar MD PCP - General 10/18/20 01/05/23 documented as of this encounter
--- OUTSIDE RECORDS SUMMARY | 2024-02-03 15:21 | XMS_ITS | Encounter Summary ---
Author Organization Healthcare Address [address] [place] [address] Care Team Providers Care Supervisor [place] Name Role Phone Elmo Escobar MD Primary Care Provider [phone] Tiffanie Gonzalez LPN Unavailable Unavailabl e Encounter Details Date Type Department Care Team (Latest Contact Info) Description 07/15/2022 Travel Social History Tobacco Use Types Packs/Day [...] drink first t caleb in the morning (EYE-SEMICONDUCTOR PACKAGES LEAK TESTER) to steady your nerves or [...] documented as of this encounter Care Teams Supervisor [place] Relationship Specialty Start Date End Date Elmo Escobar MD PCP - General 10/18/20 01/05/23 Tiffanie Gonzalez LPN [employer] [place] [address] Care Coordination Nurse 06/20/2207/18 documented as of this encounter
--- OUTSIDE RECORDS SUMMARY | 2024-02-03 15:21 | XMS_ITS | Encounter Summary ---
Author Organization Healthcare Address [address] [id number] Care Team Providers Care Civil Cad Tech Name Role Phone Elmo Escobar MD Primary Care Provider [phone] Tiffanie Gonzalez [employer] Unavailable Unavailabl e Reason for Visit * Reason Comments Abdominal Pain * Auth/Cert (Routine) Specialty Diagnoses / Procedures Referred By Contac t Referred To Contact Diagnoses Acute on chronic pancreatitis (CMS/HCC) - [facility] [address] [place] [address] Phone: tel: [facility] [address] [place] [address] Phone: tel: Referral ID Status Reason Start Date Expiration Date Visits Re quested Visits Authorized [id number] 1 1 Encounter Details Date Type Department Care Team (Late st Contact Info) Description 07/10/2022 10:10 PM EDT - 07/11/2022 4:47 PM EDT Emergency [facility] [address] [place] [address] Deyanira Lopez MD [address] [place] [address] Chad Mcclure MD [address] [place] [address] Gela Velasco MD [address] [place] [address] Acute on chronic pancreatitis (CMS/HCC) (Primary Dx); History of gastric ulcer Discharge Disposition: Home or Self Care Social [...] drink first t caleb in the 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) to 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 your nerves or to [...] PM EDT documented as of this encounter Last Filed Vital Signs Vital Sign Reading Time Taken Comments Blood Pressure 117/85 07/11/2022 4:46 PM EDT Pulse 82 07/11/2022 4:46 PM EDT Temperature 36.8 ??C (98.2 ??F) 07/11/2022 4:39 PM ED T Respiratory Rate 18 07/11/2022 4:46 PM EDT Oxygen Saturation 97% 07/11/2022 4:46 PM EDT Inhaled Oxygen Concentration - - Weight 110 kg (243 lb 9.7 oz) 07/11/2022 8:20 AM EDT Height - - Body Mass Index 40.54 06/23/2022 9:28 AM EDT documented in this encounter Discharge Instructions * Discharge Instructions* Neli Manuel PA - 07/11/2022 1:49 PM EDT Continue taking your home Sucralfate, daily protonix. Continue following a bland diet, avoiding allalcohol, tobacco, NSAID (ibuprofen, naproxen) and marijuana use, as these will likely exacerbate symptoms. Follow up next week as scheduled with GI, and reach out to your pain clinic to discuss further management. Return to the Emergency Department with worsening or new symptoms. Thank you for this opportunity to provide your care. * Attachments The following attachments cannot be sent through Care Everywhere. * Pancreatitis, Chronic, Discharge Instructions for (Grenadian) * Gastritis, Treating (Grenadian) * Cannabis Hyperemesis Syndrome (Grenadian) documented in this encounter Medications at Time [...] needed for severe pain. 07/21/19 23 pancrelipase, Iva-Assf-Fwli, (Creon) 40327-41231 units capsule Take 2 capsules by mouth [...] as of this encounter Miscellaneous Notes * H&P - Hosea Lucas MD - 07/11/2022 2:44 AM EDT Chief Concern & History Of Present Illness Lila Mcnally is a 36 y.o. female presenting with acute on chronic abdominal pain from her chronic pancreatitis. She describes acute abdominal pain and PO intolerance in line with her previous flares. She notes over the past few days, the epigastric pain has become severe with symptoms typical of her pancreatitis flare symptoms. She cannot identify a specific trigger for this event, noting that a bland diet has not alleviated her symptoms. The pain is nearly constant with no clear aggravating factors. She has been nauseous without vomiting, had no diarrhea, has had anorexia and decreased oral intake, but weight changes, no fevers, no hematochezia or bilious emesis, no chest pain, shortness of breath, myalgias, arthralgias, or skin rashes. She was previously prescribed opioids for her chronic pain through her PCP however she came off therapy when pain has improved, and has not yet re- connected with her PCP for long-term pain management. She notes having seen a pain specialist and had talked about a celiac plexus block, and has an upcoming appointment with a GI provider on Thursday, 07.15 (though it does not appear to be scheduled with ). Past Medical History She has a past medical history of Anxiety, Arthritis, Depression, Fibromyalgia, GERD (gastroesophageal reflux disease), Hypertension, Nicotine dependence, Obesity, and Pancreatitis. She has no past medical history of Adverse effect of anesthesia, Asthma, Awareness under anesthesia, Cancer ([facility]), CHF (congestive heart failure) ([facility]), COPD (chronic obstructive pulmonary disease) ([facility]), Coronary artery disease, Delayed emergence from general anesthesia, Diabetes mellitus ([facility]), Disease of thyroid gland, Hard to intubate, History of transfusion, Malignant hyperthermia, PONV (postoperative nausea and vomiting), Pseudocholinesterase deficiency, Spinal headache, or Stroke ([facility]). Surgical History She has a past [...] Frequency: 4.00 times per week. Drug: Marijuana. Allergies Droperidol and Tramadol Medications Current Facility-Administered Medications Medication Dose Route Frequency Provider Last Rate Last Admin acetaminophen (Tylenol) tablet 1,000 mg 1,000 mg Oral q8h Hosea Lucas MD celecoxib (CeleBREX) capsule 200 mg 200 mg Oral Once Hosea Lucas MD ondansetron ODT (Zofran-ODT) disintegrating tablet 4 mg 4 mg Oral q6h PRN Hosea Lucas MD pancrelipase (Creon) 6000 unit capsule 2 capsule Oral TID with meals Hosea Lucas MD pantoprazole (Protonix) injection 40 mg 40 mg Intravenous Once Hosea Lucas MD prochlorperazine (Compazine) tablet 5 mg 5 mg Oral q6h PRN Hosea Lucas MD sucralfate (Carafate) 1 GM/10ML suspension 1 g 1 g Oral Once PRN Hosea Lucas MD Current Outpatient Medications Medication Sig Dispense Refill acetaminophen (Tylenol) 500 MG tablet Take 1,000 mg by mouth every 6 (six) hours if needed for mildpain. Cholecalciferol (VITAMIN D3 PO) Take by mouth 1 (one) time each day. Cyanocobalamin (VITAMIN B12 PO) Take by mouth 1 (one) time each day. ketoconazole (NIZOral) 2 % cream Apply 1 application topically 1 (one) time each day. Latuda 40 MG tablet Take 1 tablet (40 mg total) by mouth 1 (one) time each day with breakfast. 12 lidocaine (Lidoderm) 5 % patch Apply 1 patch topically if needed for mild pain. Remove & discard patch within 12 hours or as directed by . LORazepam (Ativan) 1 MG tablet Take 1 mg by mouth 1 (one) time each day. Melatonin 5 MG tablet tablet Take 5 mg by mouth at night if needed for sleep. ondansetron ODT (Zofran-ODT) 4 MG disintegrating tablet Take 1 tablet (4 mg total) by mouth every 6(six) hours if needed for nausea. 12 tablet 0 oxyCODONE-acetaminophen (Percocet) 7.5-325 MG tablet Take 1 tablet by mouth 3 (three) times a day if needed for severe pain. pancrelipase, Shp-Ppno-Nulm, (Creon) [id number] units capsule Take 2 capsules by mouth 3 (three) times a day with meals. pantoprazole (Protonix) 40 MG EC tablet Take 1 tablet (40 mg total) by mouth 2 (two) times a day. Do not crush, chew, or split. 120 tablet 0 pregabalin (Lyrica) 300 MG capsule Take 300 mg by mouth 2 (two) times a day. promethazine (Phenergan) 25 MG tablet Take 25 mg by mouth every 6 (six) hours if needed. promethazine (Phenergan) 25 MG tablet Take 0.5 tablets (12.5 mg total) by mouth every 6 (six) hoursif needed for nausea or vomiting. 30 tablet 0 sucralfate (Carafate) 1 GM/10ML suspension Take 1 g by mouth 4 (four) times a day. venlafaxine XR (Effexor-XR) 150 MG 24 hr capsule Take 1 capsule (150 mg total) by mouth 1 (one) time each day. Review of Systems A medically relevant review of systems was completed and is otherwise negative except as described in the HPI. Physical Exam Vitals reviewed. Constitutional: General: She is not in acute distress. Appearance: Normal appearance. She is not ill-appearing. HENT: Right Ear: External ear normal. Left Ear: External ear normal. Nose: Nose normal. No congestion. Mouth/Throat: Mouth: Mucous membranes are moist. Pharynx: Oropharynx is clear. Eyes: General: Right eye: No discharge. Left eye: No discharge. Conjunctiva/sclera: Conjunctivae normal. Cardiovascular: Rate and Rhythm: Normal rate and regular rhythm. Pulmonary: Effort: Pulmonary effort is normal. No respiratory distress. Abdominal: General: There is no distension. Palpations: Abdomen is soft. Tenderness: There is abdominal tenderness in the epigastric area. Musculoskeletal: General: Normal range of motion. Cervical back: Normal range of motion. No rigidity. Right lower leg: No edema. Left lower leg: No edema. Skin: General: Skin is warm and dry. Capillary Refill: Capillary refill takes less than 2 seconds. Neurological: General: No focal deficit present. Mental Status: She is alert and oriented to person, place, and time. Psychiatric: Attention and Perception: Attention and perception normal. Mood and Affect: Affect is labile and tearful. Speech: Speech normal. Behavior: Behavior is cooperative. Thought Content: Thought content normal. Comments: Appeared sleepy throughout both conversations Last Recorded Vitals Blood pressure 132/88, pulse 91, temperature 36.6 ??C (97.9 ??F), temperature source Oral, resp. rate 12, last menstrual period 06/14/2022, SpO2 95 %, not currently . Relevant Results Lipase 51 Urine Ketones Trace Assessment/Plan Active Problems: Epigastric pain Chronic pain Lila is a 36 y.o. female who presents to the emergency department with a stated chief complaint toour triage of abdominal pain. She is in no acute distress, tearful but otherwise sitting comfortable in bed. She has typical symptoms for her chronic pancreatitis/abdominal pain, and is not yet tolerating PO. It should be noted that her chronic conditions includes chronic abdominal pain and possible chronicpancreatitis, which currently is not at goal therapy. This complicates her clinical picture becauseit complicates the clinical workup, complicates patient management byplacing her at risk for misdiagnosis, and increases the risk for morbidity. Based on her history and physical exam, my differential diagnosis included chronic pancreatitis, peptic ulcer disease, narcotic bowel, gastroparesis, pancreatic pseudocyst, duodenal obstruction, SBO,opioid-induced hyperalgesia. Ruling out the most morbid conditions drove my clinical assessment. I reviewed prior records including her most recent ED note and most recent discharge summary which documented repeated episodes of abdominal pain with typical symptoms described above and definitive etiology despite several CT scans. I considered the utility of obtaining CT Scan, Ultrasound, and labs including repeat lipse , but decided to forgo this as she has a benign abdominal exam, symptoms in line with prior episodes, no concerning symptoms, and no weight loss. I considered and discussed the utility of treatment with a prescription for PPI, pancrelipase (as has been off for some time as had minimal prior success), aluminum hydroxide-magnesium hydroxide . However, because she declines the oral GI solution we decided not to start treatment. She is open to re-trialing the pancrelipase. Complicating her clinical picture is the social fact that she does not feel comfortable with discharge which puts her at higher risk for treatment failure and subsequent morbidity. We discussed my concern for opioid-induced hyperalgesia and that I will not be administering further IV opioid medications out of concern that they are causing more harm than benefit. She is not comfortable returing home at this time, and I made it clear to her several times I am not accusing her of drug-seeking behavior and that I am focused on managing her symptoms with oral medications to place her in a positionwhere she is able to eat and drink. Review of prior documentation is notable for stable weight ~100-109 kg (accounting for variability in scales). She has been prescribed many different symptomatic treatments before and has found no success with the variety of medications provided including acetaminophen, ondansetron, pantoprazole, and sucralfate. Chronic Abdominal Pain, Possible Flair of Chronic Pancreatitis - Scheduled acetaminophen, one-time celecoxib dose, re-ordered home sucralfate - Trial of pancreatic enzyme supplementation with low-dose pancrelipase (12,000 units/meal lipase).Had attempted before but had minimal improvement, open to trying again - No further opioid therapy at this time - Nausea control with ondansetron, prochlorperazine - Advance diet as tolerated - Spent significant time counseling patient on my concern for opioid-induced hyperalgesia and that she needs to follow up with her outpatient team for further management of acute pain Cosigned by Gela Velasco MD at 07/11/2022 7:39 AM EDT Associated attestation - Gela Velasco MD - 07/11/2022 7:39 AM EDT I saw and evaluated the patient with the resident/fellow. I discussed the case with the resident/fellow and agree with the findings and plan as documented. I personally spent a total of 40 minutes on this encounter. This time includes face to face with patient, counseling, and discussion and/or coordination of care. * ED Notes - Marybeth Jimenez - 07/10/2022 10:30 PM EDT Pt presents to ED via EMS- per report patient has a hx of Pancreatitis, rating pain 10/10. Pt denies, fever, chills, dysuria and hematuria. Pt placed on monitor, urine specimen at bedside, blood specimen at bedside- pt placed on monitor, bed in lowest position- no concerns at the present time. Willcontinue to monitor. Marybeth Jimenez 07/10/22 2232 * ED Provider Notes - Svetlana Sanchez, - 07/10/2022 10:09 PM EDT - HPI Chief Complaint Patient presents with Abdominal Pain This patient is a 36-year-old female with a history of chronic pancreatitis and recurrent abdominalpain presenting to the emergency department for evaluation of an acute abdominal pain flare. She states that it is epigastric. It started yesterday, and she tried to rest at home but it did not improve. She states that it feels similar to all of her prior pancreatitis flares. She is not able to eat or drink anything, as she is nauseated. She has also had vomiting and diarrhea. No other concerns such as fevers chills, or other issues. On medical record review, patient has had multiple recent evaluations for similar symptoms. 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 Physical Exam ED Triage Vitals [07/10/229] Temp Heart Rate Resp BP 36.6 ??C (97.9 ??F) 107 20 (!) 135/96 SpO2 Temp Source Heart Rate Source Patient Position 96 % Oral Monitor Sitting BP Location FiO2 (%) Left arm -- Physical Exam Vitals and nursing [...] Course & MDM ED Course as of 07/11/22643July 11, 2022 0006 Specific [place], Urine: >=1.030 Patient on her period. [AB] ED Course User Index [AB] Svetlana Sanchez DO Clinical Impressions as of 07/11/22 0644 Acute on chronic pancreatitis ([facility]) ED Disposition: Observation Medical Decision Making Lila is a 36 y.o. female who presents to the emergency department with a stated chief complaint toour triage of Patient presents with: Abdominal Pain It should be noted that her chronic conditions includes chronic pancreatitis, which currently is not at goal therapy. This complicates her clinical picture because it may be exacerbating symptoms. Based on her history and physical exam, my differential diagnosis included acute on chronic pancreatitis, gastroenteritis, colitis. Ruling out the most morbid conditions drove my clinical assessment. I reviewed prior records including her most recent ED note which documented multiple previous evaluation for similar symptoms. I considered the utility of obtaining CT Scan, but decided to forgo this after shared decision making with the patient/family because this would not management and budget analyst. Labs were obtained that were reassuring with no elevation in lipase, liver enzymes, other concerns.She does have hematuria, however she is currently on her period. No urinary symptoms. Patient was given multiple doses of IV Dilaudid and antiemetics with no improvement in her symptoms. She was alsogiven a bolus of IV fluids. She continues to have intractable pain and inability to tolerate oral intake. Given this, I feel the patient would benefit from observation stay for pain control, fluid resuscitation, and further management. I had interactive discussion with the ED observation team who will observe the patient. ED Prescriptions None Sign Off Checklist Clinical Impression: Complete ED Disposition: Complete - Svetlana Sanchez DO Resident 07/11/22 0644 Cosigned by Deyanira Lopez MD at 07/12/2022 1:18 AM EDT Associated attestation - Deyanira Lopez MD - 07/12/2022 1:18 AM EDT I saw and evaluated the patient with the resident/fellow. I discussed the case with the resident/fellow and agree with the findings and plan as documented. * Discharge Summary - Neli Manuel PA - 07/10/2022 10:09 PM EDT Images from the original note were not included. Hospitalization Admit Date/Time: 07/10/2022 10:10 PM Admitting Attending: Discharge Date: 07/11/2022 Discharge Attending Physician: Chad Mcclure Md PCP name and Address: Elmo Escobar MD [address] [facility] / [facility] [address] Referring provider name and address: No referring provider defined for this encounter. Chief Concern, Brief History of Present Illness, and Hospital Course Lila Mcnally is a 36 y.o. female presenting with acute on chronic abdominal pain that she attributes to her chronic pancreatitis. She describes acute abdominal pain and PO intolerance in line with her previous flares. She notes over the past few days, the epigastric pain has become severe with symptoms typical of her pancreatitis flare symptoms. She cannot identify a specific trigger for this event, noting that a bland diet has not alleviated her symptoms. The pain is nearly constant with no clear aggravating factors. She has been nauseous without vomiting, had no diarrhea, has had anorexia and decreased oral intake, but no weight changes, no fevers, no hematochezia or bilious emesis, no chest pain, shortness of breath, myalgias, arthralgias, or skin rashes. She was previously prescribed opioids for her chronic pain through her PCP however she came off therapy when pain has improved, and has not yet re- connected with her PCP for long-term pain management. She notes having seen a pain specialist and had talked about a celiac plexus block, and has an upcoming appointment with a GI provider on Thursday, 07.15 (though it does not appear to be scheduled with ). In the Emergency Department, she received multiple doses of Dilaudid without lasting improvement. Due to inability to tolerate PO and manage pain, she was admitted to ED Obs for further management. After extensive chart review, it was decided to cease opiate therapy given numerous ED visits, hospitalizations, and specialty consultations with documented recommendations AGAINST use of opioids for her acute on chronic pain. Pt did experience relief with a combination of carafate, tylenol, Po Ativan, protonix, GI cocktail, and pain-dose Ketamine. She was able to tolerate PO and sleep. She feels comfortable with discharge home at this time and will follow up as scheduled with her GI next week, and reestablish care with her pain management clinic. Surgeries and Procedures Medication List . acetaminophen 500 MG tablet Commonly known as: Tylenol Take 1,000 mg by mouth every 6 (six) hours if needed for mild pain. ketoconazole 2 % cream Commonly known as: NIZOral Apply 1 application topically 1 (one) time each day. Latuda 40 MG tablet Generic drug: lurasidone Take 1 tablet (40 mg total) by mouth 1 (one) time each day with breakfast. lidocaine 5 % patch Commonly known as: Lidoderm Apply 1 patch topically if needed for mild pain. Remove & discard patch within 12 hours or as directed by MD. LORazepam 1 MG tablet Commonly known as: Ativan Take 1 mg by mouth 1 (one) time each day. Melatonin 5 MG tablet tablet Take 5 mg by mouth at night if needed for sleep. ondansetron ODT 4 MG disintegrating tablet Commonly known as: Zofran-ODT Take 1 tablet (4 mg total) by mouth every 6 (six) hours if needed for nausea. oxyCODONE-acetaminophen 7.5-325 MG tablet Commonly known as: Percocet Take 1 tablet by mouth 3 (three) times a day if needed for severe pain. pancrelipase (Tgi-Kxgc-Rtjp) 98629-30741 units capsule Commonly known as: Creon Take 2 capsules by mouth 3 (three) times a day with meals. pantoprazole 40 MG EC tablet Commonly known as: Protonix Take 1 tablet (40 mg total) by mouth 2 (two) times a day. Do not crush, chew, or split. pregabalin 300 MG capsule Commonly known as: Lyrica Take 300 mg by mouth 2 (two) times a day. * promethazine 25 MG tablet Commonly known as: Phenergan Take 25 mg by mouth every 6 (six) hours if needed. * promethazine 25 MG tablet Commonly known as: Phenergan Take 0.5 tablets (12.5 mg total) by mouth every 6 (six) hours if needed for nausea or vomiting. sucralfate 1 GM/10ML suspension Commonly known as: Carafate Take 1 g by mouth 4 (four) times a day. venlafaxine XR 150 MG 24 hr capsule Commonly known as: Effexor-XR Take 1 capsule (150 mg total) by mouth 1 (one) time each day. VITAMIN B12 PO Take by mouth 1 (one) time each day. VITAMIN D3 PO Take by mouth 1 (one) time each day. * This list has 2 medication(s) that are the same as other medications prescribed for you. Read thedirections carefully, and ask your doctor or other care provider to review them with you. Discharge Diagnosis Medical Problems Active and Resolved Hospital Problems Hospital Chronic pain (Chronic) Epigastric pain Post Discharge Instructions Discharge Instructions Continue taking your home Sucralfate, daily protonix. Continue following a bland diet, avoiding allalcohol, tobacco, NSAID (ibuprofen, naproxen) and marijuana use, as these will likely exacerbate symptoms. Follow up next week as scheduled with GI, and reach out to your pain clinic to discuss further management. Return to the Emergency Department with worsening or new symptoms. Thank you for this opportunity to provide your care. Discharge References/Attachments Pancreatitis, Chronic, Discharge Instructions for (Grenadian) Gastritis, Treating (Grenadian) Cannabis Hyperemesis Syndrome (Grenadian) Disposition Discharge Provider Care Team: [facility]ULT [56] Are they the primary team?: Yes [1] Outpatient Follow-Up No future appointments. Test Results Pending At Discharge none Pertinent Physical Exam At Time of Discharge [...] time. Psychiatric: Mood and Affect: Mood is depressed. Affect is tearful. Cognition and Memory: Cognition normal. Discharge Disposition/Condition Disposition: Home Condition: Stable (s/sx potential problems absent or manageable) I spent >30 minutes of patient care and instruction time in preparation for this discharge. Cosigned by Chad Mcclure MD at 07/19/2022 9:25 AM EDT Associated attestation - Chad Mcclure MD - 07/19/2022 9:25 AM EDT I attest to being involved in more than half the total time in patient care. I spent 30 minutes of patient care and instruction time in preparation for this discharge. documented in this encounter Plan of Treatment Not on file documented as of this encounter Procedures Procedure Name Priority Date/Time Associated Diagnosis Comments C-REACTIVE PROTEIN, PLASMA STAT 07/11/2022 8:45 AM EDT LIPASE, PLASMA STAT 07/11/2022 8:45 AM EDT PROTHROMBIN TIME(PT) / INR STAT 07/11/2022 12:03 AM EDT URINALYSIS MICROSCOPIC FOR UA REFLEX STAT 07/10/2022 11:11 PM EDT URINALYSIS WITH REFLEX MICROSCOPIC STAT 07/10/2022 11:11 PM EDT CBC WITH AUTO DIFFERENTIAL STAT 07/10/2022 11:10 PM EDT TEST QUALITATIVE PLASMA STAT 07/10/2022 11:10 PM EDT LIPASE, PLASMA STAT 07/10/2022 11:10 PM EDT COMPREHENSIVE METABOLIC PANEL, PLASMA STAT 07/10/2022 11:10 PM EDT documented in this encounter Results * C-reactive protein (07/11/2022 8:45 AM EDT) CRP, Plasma 5.8 <=8.0 mg/L 07/11/2022 9:18 AM EDT [facility] Blood Venous blood specimen / Unknown Venipuncture / Unknown 07/11/2022 8:45 AM EDT 07/11/2022 8:51 AM EDT Narrative [facility] - 07/11/2022 9:18 AM EDT This CRP test is appropriate for assessment of infection, systemic inflammation and/or tissue injury. To assess cardiovascular disease risk order high sensitivity CRP (CRPH). us Neli NAJERA LAB BLOOD ORDERABLES Carolina macias Result [facility] [address] [place] [address] * Lipase (07/11/2022 8:45 AM EDT) Lipase, Plasma 56 19 - 63 U/L 07/11/2022 9:18 AM EDT [facility] Blood Venous blood specimen / Unknown Venipuncture / Unknown 07/11/2022 8:45 AM EDT 07/11/2022 8:51 AM EDT us Neli Manuel PA LAB BLOOD ORDERABLES Carolina l Result Performing Organization Address [facility]/ZIP Co de Phone Number [facility] [address] [place] [address] * PT-INR (07/11/2022 12:03 AM EDT) Prothrombin Time 12.8 12.0 - 14.3 sec 07/11/2022 12:58 AM EDT [facility] INR 1.0 0.9 - 1.1 07/11/2022 12:58 AM EDT [facility] Blood Venous blood specimen / Unknown Venipuncture / Unknown 07/11/2022 12:03 AM EDT 07/11/2022 12:06 AM EDT Narrative [facility] - 07/11/2022 12:58 AM EDT OPTIMAL INR RANGES FOR PATIENT ON ORAL ANTICOAGULANT THERAPY Prevention of venous thromboembolism ?INR 2.0 to 3.0 In patients with heart disease: Atrial fibrillation ?INR 2.0 to 3.0 Valvular heart disease ? INR 2.0 to 3.0 Tissue heart valves ?INR 2.0 to 3.0 Mechanical prosthetic valves ? INR 2.5 to 3.5 Prevention of recurrent [place] ? INR 2.5 to 3.5 us Deyanira Lopez MD LAB BLOOD ORDERABLES Final Re sult [facility] [address] [place] [address] * Urinalysis Microscopic Examination (07/10/2022 11:11 PM EDT) Urine Urine specimen obtained by clean catch procedure / Unknown Non-blood Collection / Unknown 07/10/2022 11:11 PM EDT 07/10/2022 11:15 PM EDT Deyanira Lopez MD LAB URINE ORDERABLES Final Re sult [facility] [address] [place] [address] * (ABNORMAL) Urinalysis with reflex microscopic (07/10/2022 11:11 PM EDT) Color, Urine Yellow LAB URINALYSIS - AUTOMATED METHOD 07/11/2022 1:32 AM EDT [facility] Clarity, Urine Cloudy LAB URINALYSIS - AUTOMATED METHOD 07/11/2022 1:32 AM EDT [facility] Spec [place], Urine >=1.030 <=1.005 to >=1.030 LAB URINALYSIS - AUTOMATED METHOD 07/11/2022 1:32 AM EDT [facility] pH, Urine 6.5 4.5 to 8 LAB URINALYSIS - AUTOMATED METHOD 07/11/2022 1:32 AM EDT [facility] Protein, Urine Trace(A) Negative mg/dL LAB URINALYSIS - AUTOMATED METHOD 07/11/2022 1:32 AM EDT [facility] Glucose, Urine Negative Negative mg/dL LAB URINALYSIS - AUTOMATED METHOD 07/11/2022 1:32 AM EDT [facility] Ketones, Urine Trace(A) Negative mg/dL LAB URINALYSIS - AUTOMATED METHOD 07/11/2022 1:32 AM EDT [facility] Blood, Urine Large(A) Negative LAB URINALYSIS - AUTOMATED METHOD 07/11/2022 1:32 AM EDT [facility] Bilirubin, Urine Negative Negative LAB URINALYSIS - AUTOMATED METHOD 07/11/2022 1:32 AM EDT [facility] Urobilinogen, Urine 1.0 0.2 to 1.0 mg/dL LAB URINALYSIS - AUTOMATED METHOD 07/11/2022 1:32 AM EDT [facility] Leukocytes, Urine Negative Negative LAB URINALYSIS - AUTOMATED METHOD 07/11/2022 1:32 AM EDT [facility] Nitrite, Urine Negative Negative LAB URINALYSIS - AUTOMATED METHOD 07/11/2022 1:32 AM EDT [facility] RBC, Urine 4 - 10(A) 0 to 3 /HPF LAB URINALYSIS - AUTOMATED METHOD 07/11/2022 1:32 AM EDT [facility] Comment: Confirmed This result was previously suppressed from the chart. WBC, Urine 6 - 10(A) 0 to 5 /HPF LAB URINALYSIS - AUTOMATED METHOD 07/11/2022 1:32 AM EDT [facility] Comment:This result was prev iously suppressed from the chart. Squamous Epithelial Cells 6 - 10(A) 0 to 5 /HPF LAB URINALYSIS - AUTOMATED METHOD 07/11/2022 1:32 AM EDT [facility] Comment:This result was prev iously suppressed from the chart. Hyaline Casts 0 - 8 0 to 8 /LPF LAB URINALYSIS - AUTOMATED METHOD 07/11/2022 1:32 AM EDT [facility] Comment:This result was prev iously suppressed from the chart. Bacteria, Urine Present Negative LAB URINALYSIS - AUTOMATED METHOD 07/11/2022 1:32 AM EDT [facility] Comment:This result was prev iously suppressed from the chart. Renal Tubular Cells <1-2 0 /HPF 07/11/2022 1:32 AM EDT [facility] Comment:This result was prev iously suppressed from the chart. Urine Urine specimen obtained by clean catch procedure / Unknown Non-blood Collection / Unknown 07/10/2022 11:11 PM EDT 07/10/2022 11:15 PM EDT Narrative [facility] - 07/11/2022 1:32 AM EDT Performed by manual method us Deyanira Lopez MD LAB URINE ORDERABLES Final Re sult [facility] [address] [place] [id number] * hCG qualitative (07/10/2022 11:10 PM EDT) Test Negative Negative 07/10/2022 11:38 PM EDT [facility] Blood Venous blood specimen / Unknown Venipuncture / Unknown 07/10/2022 11:10 PM EDT 07/10/2022 11:13 PM EDT Narrative [facility] - 07/10/2022 11:38 PM EDT Reference Range: Males and non- females: Negative. Deyanira Lopez MD LAB BLOOD ORDERABLES Final Re sult Performing Organization Address City/[facility]/ZIP Co de Phone Number [facility] [address] [place] [address] * Lipase (07/10/2022 11:10 PM EDT) Lipase, Plasma 51 19 - 63 U/L 07/10/2022 11:38 PM EDT [facility] Blood Venous blood specimen / Unknown Venipuncture / Unknown 07/10/2022 11:10 PM EDT 07/10/2022 11:13 PM EDT Deyanira Lopez MD LAB BLOOD ORDERABLES Final Re sult Performing Organization Address City/[facility] Co de Phone Number [facility] [address] [place] [address] * (ABNORMAL) CMP (07/10/2022 11:10 PM EDT) Glucose, Plasma 97 74 - 99 mg/dL 07/10/2022 11:38 PM EDT [facility] BUN, Plasma 15 7 - 21 mg/dL 07/10/2022 11:38 PM EDT [facility] Creatinine, Plasma 0.61 0.60 - 1.10 mg/dL 07/10/2022 11:38 PM EDT [facility] BUN/Creatinine Ratio 25 07/10/2022 11:38 PM EDT [facility] Sodium, Plasma 143 136 - 145 mmol/L 07/10/2022 11:38 PM EDT [facility] Potassium, Plasma 4.1 3.7 - 4.8 mmol/L 07/10/2022 11:38 PM EDT [facility] Chloride, Plasma 107 97 - 107 mmol/L 07/10/2022 11:38 PM EDT [facility] CO2, Plasma 23 22 - 29 mmol/L 07/10/2022 11:38 PM EDT [facility] Anion Gap 13 6 - 16 mmol/L 07/10/2022 11:38 PM EDT [facility] Total Calcium, Plasma 9.3 8.9 - 10.2 mg/dL 07/10/2022 11:38 PM EDT [facility] Total Protein 6.9 6.3 - 7.9 g/dL 07/10/2022 11:38 PM EDT [facility] Albumin, Plasma 4.1 3.5 - 5.2 g/dL 07/10/2022 11:38 PM EDT [facility] AST, Plasma 17 11 - 32 U/L 07/10/2022 11:38 PM EDT [facility] Comment:Hemolyzed, result ma y be falsely increased. ALT, Plasma 17 8 - 33 U/L 07/10/2022 11:38 PM EDT [facility] Alkaline Phosphatase, Plasma 102 35 - 104 U/L 07/10/2022 11:38 PM EDT [facility] Total Bilirubin, Plasma <0.2(L) 0.2 - 1.1 mg/dL 07/10/2022 11:38 PM EDT [facility] eGFRcr 119.7 mL/min/1.7 3m*2 07/10/2022 11:38 PM EDT [facility] Comment: Reported eGFRcr in mL/min/1.73m2 is based the CKD-EPI 2021 equation that does not use a race coefficient. Effective 09/18/21 our laboratory changed the eGFR calculation to the CKD-EPI 2021 equation from the previously reported eGFR, based on the MDRD equation. ??For comparisons between the two equations, please see laboratory website: ??[email or web address] Blood Venous blood specimen / Unknown Venipuncture / Unknown 07/10/2022 11:10 PM EDT 07/10/2022 11:13 PM EDT us Deyanira Lopez MD LAB BLOOD ORDERABLES Final Re sult [facility] [address] [place] [phone] * (ABNORMAL) CBC w/diff (07/10/2022 11:10 PM EDT) [facility] Signature WBC Count 7.21 3.70 - 10.30 10*3/uL LAB HEMATOLOGY METHOD 07/10/2022 11:46 PM EDT [facility] RBC Count 4.13 3.90 - 5.20 10*6/uL LAB HEMATOLOGY METHOD 07/10/2022 11:46 PM EDT [facility] HGB 11.4 11.2 - 15.7 g/dL LAB HEMATOLOGY METHOD 07/10/2022 11:46 PM EDT [facility] HCT 34.7 34.0 - 45.0 % LAB HEMATOLOGY METHOD 07/10/2022 11:46 PM EDT [facility] Platelet Count 267 155 - 369 10*3/uL LAB HEMATOLOGY METHOD 07/10/2022 11:46 PM EDT [facility] MCV 84 79 - 98 fL LAB HEMATOLOGY METHOD 07/10/2022 11:46 PM EDT [facility] MCH 27.6 26.0 - 32.0 pg LAB HEMATOLOGY METHOD 07/10/2022 11:46 PM EDT [facility] MCHC 32.9 30.7 - 35.5 g/dL LAB HEMATOLOGY METHOD 07/10/2022 11:46 PM EDT [facility] RDW 15.2(H) 11.5 - 14.5 % LAB HEMATOLOGY METHOD 07/10/2022 11:46 PM EDT [facility] MPV 10.3 8.8 - 12.5 fL LAB HEMATOLOGY METHOD 07/10/2022 11:46 PM EDT [facility] nRBC 0.0 <=0.0 per 100 WBCs LAB HEMATOLOGY METHOD 07/10/2022 11:46 PM EDT [facility] Differential Type Automated LAB HEMATOLOGY METHOD 07/10/2022 11:46 PM EDT [facility] Neutrophils % 57.0 % LAB HEMATOLOGY METHOD 07/10/2022 11:46 PM EDT [facility] Lymphocytes % 37.0 % LAB HEMATOLOGY METHOD 07/10/2022 11:46 PM EDT [facility] Monocytes % 5.0 % LAB HEMATOLOGY METHOD 07/10/2022 11:46 PM EDT [facility] Eosinophils % 0.0 % LAB HEMATOLOGY METHOD 07/10/2022 11:46 PM EDT [facility] Basophils % 1.0 % LAB HEMATOLOGY METHOD 07/10/2022 11:46 PM EDT [facility] Immature Granulocytes % 0.0 % LAB HEMATOLOGY METHOD 07/10/2022 11:46 PM EDT [facility] Neutrophils Absolute 4.13 1.60 - 6.10 10*3/uL LAB HEMATOLOGY METHOD 07/10/2022 11:46 PM EDT [facility] Lymphocytes Absolute 2.65 1.20 - 3.90 10*3/uL LAB HEMATOLOGY METHOD 07/10/2022 11:46 PM EDT [facility] Monocytes Absolute 0.33 0.30 - 0.90 10*3/uL LAB HEMATOLOGY METHOD 07/10/2022 11:46 PM EDT [facility] Eosinophils Absolute 0.02 0.00 - 0.50 10*3/uL LAB HEMATOLOGY METHOD 07/10/2022 11:46 PM EDT [facility] Basophils Absolute 0.05 0.00 - 0.10 10*3/uL LAB HEMATOLOGY METHOD 07/10/2022 11:46 PM EDT [facility] Immature Granulocytes Absolute 0.03 0.00 - 0.06 10*3/uL LAB HEMATOLOGY METHOD 07/10/2022 11:46 PM EDT [facility] Blood Venous blood specimen / Unknown Venipuncture / Unknown 07/10/2022 11:10 PM EDT 07/10/2022 11:13 PM EDT Narrative [facility] - 07/10/2022 11:46 PM EDT Therapeutic decision making should be based on absolute values, rather than percentages. Deyanira Lopez MD LAB BLOOD ORDERABLES Final Re sult [facility] [address] [place] [address] documented in this encounter Visit Diagnoses Diagnosis Acute on chronic pancreatitis (CMS/HCC)- Primary History of gastric ulcer Chronic pain Other chronic pain Epigastric pain Abdominal pain, epigastric documented in this encounter Administered Medications Inactive Administered Medications - up to 3 most recent administrations Medication Order MAR Action Action Date Dose Rate Site acetaminophen (Tylenol) tablet 1,000 mg 1,000 mg, Oral, Every 8 hours, First dose on Thu07/11/22 at 0240, Until Discontinued, Routine Given 07/11/2022 10:28 AM EDT 1,000 mg gi cocktail oral solution 30 mL 30 mL, Oral, Once, 1 dose, On Thu07/11/22 at 1015, STAT Given 07/11/2022 11:13 AM EDT 30 mL HYDROmorphone (Dilaudid) injection 1 mg 1 mg, Intravenous, Once, 1 dose, On Thu07/10/22 at 2325, STAT Given 07/10/2022 11:31 PM EDT 1 mg HYDROmorphone (Dilaudid) injection 1 mg 1 mg, Intravenous, Once, 1 dose, On Thu07/11/22 at 0200, Routine Given 07/11/2022 2:00 AM EDT 1 mg ketamine 10 mg in sodium chloride 0.9 % 50 mL IVPB 10 mg (rounded from 11.1 mg = 0.1 mg/kg ? 111 kg), Intravenous, Once, 1 dose, On Thu07/11/22 at 1130, at 220.8 mL/hr, Administer over 15 Minutes, STAT New Bag 07/11/2022 12:16 PM EDT 10 mg 220.8 mL/hr lactated Ringer's infusion 1,000 mL 1,000 mL, Intravenous, Once, 1 dose, On Thu07/10/22 at 2315, STAT New Bag 07/10/2022 11:15 PM EDT 1,000 mL LORazepam (Ativan) tablet 2 mg 2 mg, Oral, Once, 1 dose, On Thu07/11/22 at 1015, STAT Given 07/11/2022 10:27 AM EDT 2 mg ondansetron (Zofran) injection 4 mg 4 mg, Intravenous, Once, 1 dose, On Thu07/10/22 at 2315, STAT Given 07/10/2022 11:15 PM EDT 4 mg ondansetron ODT (Zofran-ODT) disintegrating tablet 4 mg 4 mg, Oral, Every 6 hours PRN, Starting on Thu07/11/22 at 0232, Until Thu07/11/22 at 1847, Routine, nausea, vomiting pancrelipase (Creon) 6000 unit capsule 2 capsule, Oral, 3 times daily with meals, First dose on Thu07/11/22 at 0245, Until Discontinued, Routine pantoprazole (Protonix) injection 40 mg 40 mg, Intravenous, Once, 1 dose, On Thu07/11/22 at 1015, STAT Given 07/11/2022 10:28 AM EDT 40 mg pregabalin (Lyrica) capsule 300 mg 300 mg, Oral, Once as needed, 1 dose, Starting on Thu07/11/22 at 1114, Until Thu07/11/22 at 1431, Routine, As needed for pain Given 07/11/2022 2:31 PM EDT 300 mg prochlorperazine (Compazine) tablet 5 mg 5 mg, Oral, Every 6 hours PRN, Starting on Thu07/11/22 at 0232, Until Thu07/11/22 at 1847, Routine, nausea, vomiting promethazine (Phenergan) injection 25 mg 25 mg, Intravenous, Once, 1 dose, On Thu07/11/22 at 0115, STAT Given 07/11/2022 2:00 AM EDT 25 mg promethazine (Phenergan) injection 25 mg 25 mg, Intravenous, Once, 1 dose, On Thu07/11/22 at 0815, STAT Given 07/11/2022 9:10 AM EDT 25 mg sucralfate (Carafate) 1 GM/10ML suspension 1 g 1 g, Oral, Once as needed, 1 dose, Starting on Thu07/11/22 at 0245, Until Thu07/11/22 at 1847, Routine, For abdominal pain between medication dosings documented in this encounter Active and Recently Administered Medications Times are shown in EDT. Scheduled Medication Order 07/09/2022 07/10/2022 07/11/2022 acetaminophen (Tylenol) tablet 1,000 mg 1,000 mg, Oral, Every 8 hours, First dose on Thu07/11/22 at 0240, Until Discontinued, Routine 0243 (Not Given - Provider: Marybeth Jimenez - Reason: Patient/family refused)1028 (Given - Provider: Dipika Leon RN)1840 (Canceled Entry - Provider: Automatic Discharge Provider - Comment: Automatically canceled at discontinue of medication order) celecoxib (CeleBREX) capsule 200 mg 200 mg, Oral, Once, 1 dose, On Thu07/11/22 at 0240, Routine 0244 (Not Given - Provider: Marybeth Jimenez - Reason: Patient/family refused) gi cocktail oral solution 30 mL (COMPLETED) 30 mL, Oral, Once, 1 dose, On Thu07/11/22 at 1015, STAT 1113 (Given - Provid er: Latonya Falcon) HYDROmorphone (Dilaudid) injection 1 mg (COMPLETED) 1 mg, Intravenous, Once, 1 dose, On Annabel 07/10/22 at 2325, STAT 2331 (Given - Provider: Marybeth Jimenez) HYDROmorphone (Dilaudid) injection 1 mg (COMPLETED) 1 mg, Intravenous, Once, 1 dose, On Thu07/11/22 at 0200, Routine 0200 (Given - Provid er: Marybeth Jimenez) ketamine 10 mg in sodium chloride 0.9 % 50 mL IVPB (COMPLETED) 10 mg (rounded from 11.1 mg = 0.1 mg/kg ? 111 kg), Intravenous, Once, 1 dose, On Thu07/11/22 at 1130, at 220.8 mL/hr, Administer over 15 Minutes, STAT 1216 (New Bag - Prov ider: Latonya Falcon)1231 (Stopped - Provider: Latonya Falcon) lactated Ringer's infusion 1,000 mL (COMPLETED) 1,000 mL, Intravenous, Once, 1 dose, On Annabel 07/10/22 at 2315, STAT 2315 (New Bag - Provider: Marybeth Jimenez) 0553 (Stopped - Provider: Marybeth Jimenez) LORazepam (Ativan) tablet 2 mg (COMPLETED) 2 mg, Oral, Once, 1 dose, On Thu07/11/22 at 1015, STAT 1027 (Given - Provid er: Dipika Leon RN) ondansetron (Zofran) injection 4 mg (COMPLETED) 4 mg, Intravenous, Once, 1 dose, On Annabel 07/10/22 at 2315, STAT 2315 (Given - Provider: Marybeth Jimenez) pancrelipase (Creon) 6000 unit capsule 2 capsule, Oral, 3 times daily with meals, First dose on Thu07/11/22 at 0245, Until Discontinued, Routine 0244 (Not Given - Provider: Marybeth Jimenez - Reason: Patient/family refused)0820 (Not Given - Provider: Dipika Leon RN - Reason: Patient/family refused)1132 (Not Given - Provider: Latonya Falcon - Reason: Patient/family refused)1633 (Not Given - Provider: Latonya Falcon - Reason: Patient/family refused) pantoprazole (Protonix) injection 40 mg 40 mg, Intravenous, Once, 1 dose, On Thu07/11/22 at 0235, Routine 0243 (Not Given - Provider: Marybeth Jimenez - Reason: Patient/family refused) pantoprazole (Protonix) injection 40 mg (COMPLETED) 40 mg, Intravenous, Once, 1 dose, On Thu07/11/22 at 1015, STAT 1028 (Given - Provid er: Dipika Leon RN) promethazine (Phenergan) injection 25 mg (COMPLETED) 25 mg, Intravenous, Once, 1 dose, On Thu07/11/22 at 0115, STAT 0200 (Given - Provid er: Marybeth Jimenez) promethazine (Phenergan) injection 25 mg (COMPLETED) 25 mg, Intravenous, Once, 1 dose, On Thu07/11/22 at 0815, STAT 0910 (Given - Provid er: Thro Ramirez - Comment: 50ml dilution) PRN Medication Order 07/09/2022 07/10/2022 07/11/2022 ondansetron ODT (Zofran-ODT) disintegrating tablet 4 mg 4 mg, Oral, Every 6 hours PRN, Starting on Thu07/11/22 at 0232, Until Thu07/11/22 at 1847, Routine, nausea, vomiting pregabalin (Lyrica) capsule 300 mg (COMPLETED) 300 mg, Oral, Once as needed, 1 dose, Starting on Thu07/11/22 at 1114, Until Thu07/11/22 at 1431, Routine, As needed for pain 1431 (Given - Provid er: Latonya Falcon) prochlorperazine (Compazine) tablet 5 mg 5 mg, Oral, Every 6 hours PRN, Starting on Thu07/11/22 at 0232, Until Thu07/11/22 at 1847, Routine, nausea, vomiting sucralfate (Carafate) 1 GM/10ML suspension 1 g 1 g, Oral, Once as needed, 1 dose, Starting on Thu07/11/22 at 0245, Until Thu07/11/22 at 1847, Routine, For abdominal pain between medication dosings documented in this encounter Additional Health Concerns Assessment Noted Time A fall risk assessment has been complete d for the patient 11/21/2020 2:30 PM EDT documented as of this encounter Care Teams Civil Cad Tech Relationship Specialty Start Date End Date Elmo Escobar MD PCP - General 10/18/20 01/05/23 Tiffanie Gonzalez LPN [employer] [place] [address] Care Coordination Nurse 06/20/2207/18 documented as of this encounter
--- OUTSIDE RECORDS SUMMARY | 2024-02-03 15:21 | XMS_ITS | Encounter Summary ---
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 No / Unsure 06/14/2022 12:30 PM EDT documented as of this encounter Last Filed Vital Signs Vital Sign Reading Time Taken Comments Blood Pressure 146/102 06/23/2022 9:28 AM EDT Pulse 102 06/23/2022 9:28 AM EDT Temperature 37 ??C (98.6 ??F) 06/23/2022 9:28 AM EDT Respiratory Rate 18 06/23/2022 9:28 AM EDT Oxygen Saturation 97% 06/23/2022 9:28 AM EDT Inhaled Oxygen Concentration - - Weight 108 kg (237 lb 10.5 oz) 06/23/2022 9:28 A M EDT Height 165.1 cm (5' 5 ) 06/23/2022 9:28 AM EDT Body Mass Index 39.55 06/23/2022 9:28 AM EDT documented in this encounter Discharge Instructions * Discharge Instructions* Lisa Ashton - 06/23/2022 9:40 AM EDT Follow up with PCP and GI. Consider referral to Pain Management * Attachments The following attachments cannot be sent through Care Everywhere. * Epigastric Pain (Uncertain Cause) (Czech) documented in this encounter Medications at Time of Discharge acetaminophen (Tylenol) 500 MG tablet Take 1,000 mg by mouth every 6 (six) hours if needed for mild pain. 07/25/19 Cholecalciferol (VITAMIN D3 PO) Take by mouth [...] 12 hours or as directed by MD. 07/21/19 23 LORazepam (Ativan) 1 MG tablet [...] needed for severe pain. 07/21/19 23 pancrelipase, Ukz-Auje-Iuog, (Creon) 56316-02367 units capsule Take 2 capsules by mouth [...] nausea or vomiting. 30 tablet 06/19/2022 07/21/19 sucralfate (Carafate) 1 GM/10ML suspension Take 1 g by mouth 4 (four) times a day. 07/25/19 venlafaxine XR (Effexor-XR) 150 MG 24 hr capsule Take 1 capsule (150 mg total) by mouth 1 (one) time each day. 03/22/2022 07/21/19 documented as of this encounter Miscellaneous Notes * ED Provider Notes - Lisa Ashton - 06/23/2022 9:13 AM EDT - HPI Chief Complaint Patient presents with Abdominal Pain Lila Mcnally is a 36 y.o. female who presents to the Emergency Department with complaints of abdominal pain and nausea. She has known pancreatitis. She was seen last on 06/19/22 and lipase was elevated at 246, last CT was 06/19/22 with no acute pancreatitis. She has PCP appt this week and GI on 07/14/22. She notes she ran out of her pain medicaiton at home. She notes nausea but no vomiting. Minimal diarrhea and no urinary symptoms. No fever or chills. Denies f/c/v/d, cp, soa, urinary symptoms or neuro changes. [...] abdominal pain, diarrhea and nausea. Negative for constipation and vomiting. Genitourinary: Negative for dysuria and hematuria. Musculoskeletal: Negative for arthralgias and back pain. Skin: Negative for color change and rash. Neurological: Negative for seizures and syncope. All other systems reviewed and are negative. Physical Exam ED Triage Vitals [06/23/22 0928] Temp Heart Rate Resp BP 37 ??C (98.6 ??F) 102 18 (!) 146/102 SpO2 Temp Source Heart Rate Source Patient Position 97 % Oral -- Sitting BP Location FiO2 (%) -- -- Physical Exam Vitals and nursing note reviewed. Constitutional: General: She is not in acute distress. Appearance: She is well-developed. She is not ill-appearing. HENT: Head: Normocephalic and atraumatic. Eyes: Conjunctiva/sclera: [...] Course & MDM Clinical Impressions as of 06/23/22 0948 Epigastric pain ED Disposition: Discharge Medical Decision Making Lila Mcnally is a 36 yrs old female presents today for Patient presents with: Abdominal Pain and nausea. She has hx of chronic pancreatitis. She was last seen on 06/14/[address], then on 06/19/22 with pancreatitis with lipase at 246. She is out other home pain medicaiton. She is not in acute distress, abdominal exam benign. We discussed following up with PCP, GI and also considering Pain Management. Return for worsening or concerns. In order to fully explore differential these tests and treatments were ordered. No orders of the defined types were placed in this encounter. Medications HYDROcodone-acetaminophen ([place]) 5-325 MG per tablet 10 mg of hydrocodone (has no administration in time range) ondansetron ODT (Zofran-ODT) disintegrating tablet 4 mg (has no administration in time range) gi cocktail oral solution 30 mL (has no administration in time range) ED Prescriptions None Sign Off Checklist Clinical Impression: Complete ED Disposition: Complete - DANIA Bennett 06/23/22 0948 Cosigned by George Martinez MD at 06/23/2022 10:25 AM EDT Associated attestation - George Martinez MD - 06/23/2022 10:25 AM EDT I attest to being involved in providing substantive time in patient care. * ED Triage Notes - Carlton Sr, RN - 06/23/2022 9:13 AM EDT Pt complains of LUQ stabbing pain radiating to back with nausea and diarrhea. States was here recently with acute on chronic pancreatitis. documented in this encounter Plan [...] 30 mL, Oral, Once, 1 dose, On Thu06/23/22 at 0940, STAT Given 06/23/2022 9:51 AM EDT 30 mL HYDROcodone-acetaminophen ([place]) 5-325 MG per tablet 10 mg of hydrocodone 10 mg of hydrocodone, Oral, Once, 1 dose, On Thu06/23/22 at 0940, STAT Given 06/23/2022 9:51 AM EDT 10 mg of hydrocodone ondansetron ODT (Zofran-ODT) disintegrating tablet 4 mg 4 mg, Oral, Once, 1 dose, On Thu06/23/22 at 0940, STAT Given 06/23/2022 9:51 AM EDT 4 mg documented in this encounter Active and Recently Administered Medications Times are shown in EDT. Scheduled Medication Order 06/21/2022 06/22/2022 06/23/2022 gi cocktail oral solution 30 mL (COMPLETED) 30 mL, Oral, Once, 1 dose, On Thu06/23/22 at 0940, STAT 0951 (Given - Provid er: Sherrill Angel RN) HYDROcodone-acetaminophen ([place]) 5-325 MG per tablet 10 mg of hydrocodone (COMPLETED) 10 mg of hydrocodone, Oral, Once, 1 dose, On Thu06/23/22 at 0940, STAT 0951 (Given - Provid er: Sherrill Angel RN) ondansetron ODT (Zofran-ODT) disintegrating tablet 4 mg (COMPLETED) 4 mg, Oral, Once, 1 dose, On Thu06/23/22 at 0940, STAT 0951 (Given - Provid er: Sherrill Angel RN) documented in this encounter Additional Health Concerns Assessment Noted Time A fall risk assessment has been complete d for the patient 11/21/2020 2:30 PM EDT documented as of this encounter Care Teams Doctor'S Assistant Relationship Specialty Start Date End Date Elmo Escobar MD PCP - General 10/18/20 01/05/23 Tiffanie Gonzalez LPN [employer] [place] [address] Care Coordination Nurse 06/20/2207/18 documented as of this encounter
--- OUTSIDE RECORDS SUMMARY | 2024-02-03 15:21 | XMS_ITS | Encounter Summary ---
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
--- OUTSIDE RECORDS SUMMARY | 2024-02-03 15:22 | XMS_ITS | Encounter Summary ---
Author Organization Healthcare Address [address] [place] [address] Care Team Providers Care Licensed Physical Therapist Assistant Name Role Phone Elmo Escobar MD Primary Care Provider [phone] Reason for Visit * Reason Comments Abdominal Pain Nausea Vomiting Encounter Details Date Type Department Care Team (Late st Contact Info) Description 05/22/2022 3:55 PM EDT - 05/22/2022 8:16 PM EDT Emergency [facility] Emergency Department [address] [place] [address] Nausea, vomiting and diarrhea (Primary Dx); Abdominal pain, epigastric Discharge Disposition: Home or Self Care Social [...] first t caleb in the morning ([employer]) to steady your nerves or to get [...] In the last 10 days, have soraya chavira been in contact with someone who was confirmed or suspected to have Coronavirus/COVID-19? No / Unsure 05/22/2022 2:52 PM EDT documented as of this encounter Last Filed Vital Signs Vital Sign Reading Time Taken Comments Blood Pressure 159/113 05/22/2022 6:57 PM EDT Pulse 90 05/22/2022 6:57 PM EDT Temperature 37.1 ??C (98.8 ??F) 05/22/2022 6:57 PM ED T Respiratory Rate 18 05/22/2022 6:57 PM EDT Oxygen Saturation 100% 05/22/2022 6:57 PM EDT Inhaled Oxygen Concentration - - Weight 103 kg (226 lb 10.1 oz) 05/22/2022 2:51 P M EDT Height - - Body Mass Index 37.71 03/22/2022 4:57 PM EST documented in this encounter Discharge Instructions * Discharge Instructions* Mireya Vo PA - 05/22/2022 7:49 PM EDT Continue home meds, keep GI appt next wk. Stay well hydrated. Return to ER if develop uncontrolled vomiting/diarrhea, uncontrolled pain, fever, worsening symptoms or any concern * Attachments The following attachments cannot be sent through Care Everywhere. * Vomiting and Diarrhea, Nonspecific (Adult) (Burmese) documented in this encounter Medications at Time of Discharge naloxone (Narcan) 4 mg/0.1 mL nasal spray Administer 1 spray (4 mg total) into affected nostril(s) if needed for opioid reversal. Call 911. Give 4 mg (1 spray) into one nostril. Repeat every 2-3 minutes as needed, alternating nostrils, until medical assistance arrives. 1 each 05/24/2021 05/25/19 23 acetaminophen (Tylenol) 500 MG tablet Take 1,000 [...] ODT (Zofran-ODT) 4 MG disintegrating tablet Take 4 mg by mouth every 8 (eight) hours if needed for nausea or vomiting. 06/15/19 23 oxyCODONE-acetamino phen (Percocet) 7.5-325 MG tablet Take 1 tablet by mouth 3 (three) times a day if needed for severe pain. 07/21/19 23 pancrelipase, Wzy-Muzw-Whjq, (Creon) 63506-93304 units capsule Take 2 capsules by mouth [...] mouth 3 (three) times a day. 10/28/19 promethazine (Phenergan) 25 MG tablet Take 25 mg by mouth every 6 (six) hours if needed. 12/15/2021 08/09/19 sucralfate (Carafate) 1 GM/10ML suspension Take 1 g by mouth 4 (four) times a day. 07/25/19 venlafaxine XR (Effexor-XR) 150 MG 24 hr capsule Take 1 capsule (150 mg total) by mouth 1 (one) time each day. 03/22/2022 07/21/19 documented as of this encounter Miscellaneous Notes * ED Notes - Marybeth Lopez RN - 05/22/2022 4:58 PM EDT Primary rn not able to get iv access , charge master specialist attempted Without success provider to ultrasound Marybeth Lopez RN 05/22/22 0622 * ED Provider Notes - Mireya Vo PA - 05/22/2022 2:32 PM EDT HPI Chief Complaint Patient presents with Abdominal Pain Nausea Vomiting Lila Mcnally is a 36 y.o. female well known to this ER with PMH pancreatitis, fibromyalgia, GERD, and obesity who presents to the Emergency Department with complaints of Abdominal Pain, Nausea, and Vomiting. Symptoms developed on Thu and has N/V/D and epigastric pain that is 1 inch to the left of her typical pain. Says called GI on and they were able to schedule her an appt next week andalso went to [facility] on and they discharged her. Says she is taking her oxycodone, protonix and karafate and her ativan has been increased. Says she drinks naa estuardo as water is too heavyon her stomach. Denies fever, injury, constipation, bloody vomit/stool, symptoms. No data recorded Patient History Past Medical [...] Rash Review of Systems Review of Systems Gastrointestinal: Positive for abdominal pain, diarrhea, nausea and vomiting. All other systems reviewed and are negative. Physical Exam ED Triage Vitals [05/22/22 1453] Temp Heart Rate Resp BP 36.6 ??C (97.9 ??F) 101 18 (!) 157/94 SpO2 Temp Source Heart Rate Source Patient Position 97 % Oral -- -- BP Location FiO2 (%) Right arm -- Physical Exam Constitutional: Appearance: She is well-developed. She is not toxic-appearing or diaphoretic. HENT: [...] Course & MDM ED Course as of 05/22/221951 Annabel May 22, 2022 1641 Blood gas panel, venous(!) Normal lactate, normal ph [AB] 1734 CBC w/diff(!) No leukocytosis [AB] 1734 hCG qualitative Neg [AB] 1759 Lipase Within normal limits. [AB] 1759 Phosphorus Within normal limits. [AB] 1759 Magnesium Within normal limits. [AB] 1759 CMP(!) No JYOTSNA, no biliary obstructive pattern [AB] ED Course User Index [AB] DANIA Adams Clinical Impressions as of 05/22/221951 Nausea, vomiting and diarrhea Abdominal pain, epigastric ED Disposition: Medical Decision Making In summary this is a 36 y.o. female who presented to the ED with complaints of Abdominal Pain, Nausea, and Vomiting. Concern for pancreatitis, gastritis, GERD, gastroenteritis, vol depletion, electrolyte derangement, unlikely choledocholithiasis as s/p CCY. Appears well and at her baseline. Her chronic conditions include chronic pain which is not at goal and is exacerbating her symptoms today. Per chart review, patient has been seen by addiction medicine during past admissions and hospitalist was concerned about opioid hyperalgesia. Received IV bolusx2, IV zofran, morphine. Labs showed vol depletion, no JYOTSNA, no pancreatitis, no biliary obstructive pattern. Patient reassessed, says has some lingering pain and nausea. Received PO oxycodone and phenergan and passed PO. Patient to continue her home meds, stay well hydrated, keep GI appt next wk. She is agreeable with plan and given return precautions. Amount and/or Complexity of Data Reviewed External Data Reviewed: notes. Labs: ordered. Decision-making details documented in ED Course. Risk Parenteral controlled substances. Decision regarding hospitalization. ED Prescriptions None Sign Off Checklist Clinical Impression: Complete ED Disposition: Complete - DANIA Adams 05/22/221954 Cosigned by Agnes Cooley MD at 05/23/2022 10:30 PM EDT Associated attestation - Agnes Cooley MD - 05/23/2022 10:30 PM EDT The patient was seen only by Advanced Practice Provider (AJAY), and care was reviewed with me. * ED Triage Notes - July Ortiz RN - 05/22/2022 2:32 PM EDT Pt reports middle abd pain that goes to her back with vomiting and diarrhea. Says symptoms have gotten worse from the start on Thursday. Denies blood in vomit/diarrhea. Hx of pancreatitis. Patient GI cannot get her in until May 29. documented in this encounter Plan of Treatment Not on file documented as of this encounter Procedures Procedure Name Priority Date/Time Associated Diagnosis Comments SARS COV2 COVID 19/INFLUENZA A, B STAT 05/22/2022 5:25 PM EDT URINALYSIS WITH REFLEX MICROSCOPIC STAT 05/22/2022 5:25 PM EDT CBC WITH AUTO DIFFERENTIAL STAT 05/22/2022 5:25 PM EDT TEST QUALITATIVE PLASMA STAT 05/22/2022 5:25 PM EDT PHOSPHORUS, PLASMA STAT 05/22/2022 5: 25 PM EDT MAGNESIUM, PLASMA STAT 05/22/2022 5:2 5 PM EDT LIPASE, PLASMA STAT 05/22/2022 5:25 PM EDT BLOOD GAS PANEL, VENOUS STAT 05/22/2022 5:25 PM EDT COMPREHENSIVE METABOLIC PANEL, PLASMA STAT 05/22/2022 5:25 PM EDT documented in this encounter Results * SARS-CoV-2 COVID-19/Influenza A,B (05/22/2022 5:25 PM EDT) SARS CoV-2/COVID-1 9 RNA PCR Result Not Detected Not Detected 05/22/2022 6:25 PM EDT [facility] Influenza A Virus PCR Result Not Detected Not Detected 05/22/2022 6:25 PM EDT [facility] Influenza B Virus PCR Result Not Detected Not Detected 05/22/2022 6:25 PM EDT [facility] Swab Nasopharyngeal structure / Unknown Non-blood Collection / Unknown 05/22/2022 5:25 PM EDT 05/22/2022 5:29 PM EDT [facility] - 05/22/2022 6:25 PM EDT This test was performed using the Slime SARS-CoV-2 & Influenza A/B assay on the Girish Shilpi analyzer, an RT-PCR based method. This assay is for in vitro diagnostic use under FDA Emergency Use Authorization only. Negative results do not preclude infection [...] MICROBIOLOGY - GENERAL ORDER STACIA Final Result [facility] [address] [place] [id number] * (ABNORMAL) Urinalysis with reflex microscopic (05/22/2022 5:25 PM EDT) Color, Urine Yellow LAB URINALYSIS - AUTOMATED METHOD 05/22/2022 5:33 PM EDT [facility] Clarity, Urine Clear LAB URINALYSIS - AUTOMATED METHOD 05/22/2022 5:33 PM EDT [facility] Spec [place], Urine >=1.030 <=1.005 to >=1.030 LAB URINALYSIS - AUTOMATED METHOD 05/22/2022 5:33 PM EDT [facility] pH, Urine 6.0 4.5 to 8 LAB URINALYSIS - AUTOMATED METHOD 05/22/2022 5:33 PM EDT [facility] Protein, Urine Trace(A) Negative mg/dL LAB URINALYSIS - AUTOMATED METHOD 05/22/2022 5:33 PM EDT [facility] Glucose, Urine Negative Negative mg/dL LAB URINALYSIS - AUTOMATED METHOD 05/22/2022 5:33 PM EDT [facility] Ketones, Urine Trace(A) Negative mg/dL LAB URINALYSIS - AUTOMATED METHOD 05/22/2022 5:33 PM EDT [facility] Blood, Urine Negative Negative LAB URINALYSIS - AUTOMATED METHOD 05/22/2022 5:33 PM EDT [facility] Bilirubin, Urine Negative Negative LAB URINALYSIS - AUTOMATED METHOD 05/22/2022 5:33 PM EDT [facility] Urobilinogen, Urine 0.2 0.2 to 1.0 mg/dL LAB URINALYSIS - AUTOMATED METHOD 05/22/2022 5:33 PM EDT [facility] Leukocytes, Urine Negative Negative LAB URINALYSIS - AUTOMATED METHOD 05/22/2022 5:33 PM EDT [facility] Nitrite, Urine Negative Negative LAB URINALYSIS - AUTOMATED METHOD 05/22/2022 5:33 PM EDT [facility] Urine Urine specimen obtained by clean catch procedure / Unknown Non-blood Collection / Unknown 05/22/2022 5:25 PM EDT 05/22/2022 5:29 PM EDT us Mireya NAJERA LAB URINE ORDERABLES Final Resul t [facility] [address] [place] [id number] * hCG qualitative (05/22/2022 5:25 PM EDT) Test Negative Negative 05/22/2022 5:54 PM EDT [facility] Blood Venous blood specimen / Unknown Venipuncture / Unknown 05/22/2022 5:25 PM EDT 05/22/2022 5:29 PM EDT Narrative [facility] - 05/22/2022 5:54 PM EDT Reference Range: Males and non- females: Negative. us Mireya NAJERA LAB BLOOD ORDERABLES Final Resul t [facility] [address] [place] [address] * (ABNORMAL) Blood gas panel, venous (05/22/2022 5:25 PM EDT) pH, Venous 7.37 7.32 - 7.43 LAB HEMATOLOGY METHOD 05/22/2022 5:31 PM EDT [facility] pCO2, Venous 46 37 - 52 mmHg LAB HEMATOLOGY METHOD 05/22/2022 5:31 PM EDT [facility] pO2, Venous 30 25 - 40 mmHg LAB HEMATOLOGY METHOD 05/22/2022 5:31 PM EDT [facility] SO2, Measured, Venous 55.6(L) 65 - 80 % LAB HEMATOLOGY METHOD 05/22/2022 5:31 PM EDT [facility] Base Excess, Venous 0.8 -2.0 - 3.0 mmol/L LAB HEMATOLOGY METHOD 05/22/2022 5:31 PM EDT [facility] Bicarbonate, Calculated, Venous 27(H) 22 - 26 mmol/L LAB HEMATOLOGY METHOD 05/22/2022 5:31 PM EDT [facility] Hematocrit, Whole Blood 37.3 34.0 - 45.0 % LAB HEMATOLOGY METHOD 05/22/2022 5:31 PM EDT [facility] Sodium, Whole Blood 141 136 - 145 mmol/L LAB HEMATOLOGY METHOD 05/22/2022 5:31 PM EDT [facility] Potassium, Whole Blood 3.5(L) 3.6 - 4.9 mmol/L LAB HEMATOLOGY METHOD 05/22/2022 5:31 PM EDT [facility] Chloride, Whole Blood 106 97 - 107 mmol/L LAB HEMATOLOGY METHOD 05/22/2022 5:31 PM EDT [facility] Glucose, Whole Blood 95 74 - 99 mg/dL LAB HEMATOLOGY METHOD 05/22/2022 5:31 PM EDT [facility] Lactate, Venous, Whole Blood 1.0 0.5 - 2.2 mmol/L LAB HEMATOLOGY METHOD 05/22/2022 5:31 PM EDT [facility] Ionized Calcium, Whole Blood 4.7 4.6 - 5.1 mg/dL LAB HEMATOLOGY METHOD 05/22/2022 5:31 PM EDT [facility] Blood Venous blood specimen / Unknown Venipuncture / Unknown 05/22/2022 5:25 PM EDT 05/22/2022 5:29 PM EDT us Mireya NAJERA LAB BLOOD ORDERABLES Final Resul t Performing Organization Address City/[facility] de Phone Number [facility] [address] [place] [address] * Lipase (05/22/2022 5:25 PM EDT) Lipase, Plasma 31 19 - 63 U/L 05/22/2022 5:54 PM EDT [facility] Blood Venous blood specimen / Unknown Venipuncture / Unknown 05/22/2022 5:25 PM EDT 05/22/2022 5:29 PM EDT us Mireya NAJERA LAB BLOOD ORDERABLES Final Resul t Performing Organization Address [facility] Phone Number [facility] [address] [place] [address] * Phosphorus (05/22/2022 5:25 PM EDT) Phosphorus, Plasma 4.0 2.5 - 4.5 mg/dL 05/22/2022 5:54 PM EDT [facility] Blood Venous blood specimen / Unknown Venipuncture / Unknown 05/22/2022 5:25 PM EDT 05/22/2022 5:29 PM EDT us Mireya NAJERA LAB BLOOD ORDERABLES Final Resul t Performing Organization Address City/[facility] de Phone Number [facility] [address] [place] [address] * Magnesium (05/22/2022 5:25 PM EDT) Magnesium, Plasma 2.0 1.9 - 2.4 mg/dL 05/22/2022 5:54 PM EDT [facility] Blood Venous blood specimen / Unknown Venipuncture / Unknown 05/22/2022 5:25 PM EDT 05/22/2022 5:29 PM EDT us Mireya NAJERA LAB BLOOD ORDERABLES Final Resul t [facility] [address] [place] [address] * (ABNORMAL) CMP (05/22/2022 5:25 PM EDT) Glucose, Plasma 98 74 - 99 mg/dL 05/22/2022 5:54 PM EDT [facility] BUN, Plasma 4(L) 7 - 21 mg/dL 05/22/2022 5:54 PM EDT [facility] Creatinine, Plasma 0.64 0.60 - 1.10 mg/dL 05/22/2022 5:54 PM EDT [facility] BUN/Creatinine Ratio 6 05/22/2022 5:54 PM EDT [facility] Sodium, Plasma 140 136 - 145 mmol/L 05/22/2022 5:54 PM EDT [facility] Potassium, Plasma 3.6(L) 3.7 - 4.8 mmol/L 05/22/2022 5:54 PM EDT [facility] Chloride, Plasma 105 97 - 107 mmol/L 05/22/2022 5:54 PM EDT [facility] CO2, Plasma 25 22 - 29 mmol/L 05/22/2022 5:54 PM EDT [facility] Anion Gap 10 6 - 16 mmol/L 05/22/2022 5:54 PM EDT [facility] Total Calcium, Plasma 9.3 8.9 - 10.2 mg/dL 05/22/2022 5:54 PM EDT [facility] Total Protein 7.2 6.3 - 7.9 g/dL 05/22/2022 5:54 PM EDT [facility] Albumin, Plasma 4.5 3.5 - 5.2 g/dL 05/22/2022 5:54 PM EDT [facility] AST, Plasma 17 11 - 32 U/L 05/22/2022 5:54 PM EDT [facility] ALT, Plasma 28 8 - 33 U/L 05/22/2022 5:54 PM EDT [facility] Alkaline Phosphatase, Plasma 97 35 - 104 U/L 05/22/2022 5:54 PM EDT [facility] Total Bilirubin, Plasma 0.4 0.2 - 1.1 mg/dL 05/22/2022 5:54 PM EDT [facility] eGFRcr 118.4 mL/min/1.7 3m*2 05/22/2022 5:54 PM EDT [facility] Comment: Reported eGFRcr in mL/min/1.73m2 is based the CKD-EPI 2020 equation that does not use a race coefficient. Effective 09/18/21 our laboratory changed the eGFR calculation to the CKD-EPI 2021 equation from the previously reported eGFR, based on the MDRD equation. ??For comparisons between the two equations, please see laboratory website: ??[email or web address] Blood Venous blood specimen / Unknown Venipuncture / Unknown 05/22/2022 5:25 PM EDT 05/22/2022 5:29 PM EDT us Mireya NAJERA LAB BLOOD ORDERABLES Final Resul t Performing Organization Address City/State/[facility] de Phone Number [facility] [address] [place] [address] * (ABNORMAL) CBC w/diff (05/22/2022 5:25 PM EDT) WBC Count 5.23 3.70 - 10.30 10*3/uL LAB HEMATOLOGY METHOD 05/22/2022 5:32 PM EDT [facility] RBC Count 4.45 3.90 - 5.20 10*6/uL LAB HEMATOLOGY METHOD 05/22/2022 5:32 PM EDT [facility] HGB 12.0 11.2 - 15.7 g/dL LAB HEMATOLOGY METHOD 05/22/2022 5:32 PM EDT [facility] HCT 35.9 34.0 - 45.0 % LAB HEMATOLOGY METHOD 05/22/2022 5:32 PM EDT [facility] Platelet Count 239 155 - 369 10*3/uL LAB HEMATOLOGY METHOD 05/22/2022 5:32 PM EDT [facility] MCV 81 79 - 98 fL LAB HEMATOLOGY METHOD 05/22/2022 5:32 PM EDT [facility] MCH 27.0 26.0 - 32.0 pg LAB HEMATOLOGY METHOD 05/22/2022 5:32 PM EDT [facility] MCHC 33.4 30.7 - 35.5 g/dL LAB HEMATOLOGY METHOD 05/22/2022 5:32 PM EDT [facility] RDW 14.7(H) 11.5 - 14.5 % LAB HEMATOLOGY METHOD 05/22/2022 5:32 PM EDT [facility] MPV 9.6 8.8 - 12.5 fL LAB HEMATOLOGY METHOD 05/22/2022 5:32 PM EDT [facility] nRBC 0.0 <=0.0 per 100 WBCs LAB HEMATOLOGY METHOD 05/22/2022 5:32 PM EDT [facility] Differential Type Automated LAB HEMATOLOGY METHOD 05/22/2022 5:32 PM EDT [facility] Neutrophils % 62.0 % LAB HEMATOLOGY METHOD 05/22/2022 5:32 PM EDT [facility] Lymphocytes % 32.0 % LAB HEMATOLOGY METHOD 05/22/2022 5:32 PM EDT [facility] Monocytes % 5.0 % LAB HEMATOLOGY METHOD 05/22/2022 5:32 PM EDT [facility] Eosinophils % 0.0 % LAB HEMATOLOGY METHOD 05/22/2022 5:32 PM EDT [facility] Basophils % 1.0 % LAB HEMATOLOGY METHOD 05/22/2022 5:32 PM EDT [facility] Immature Granulocytes % 0.0 % LAB HEMATOLOGY METHOD 05/22/2022 5:32 PM EDT [facility] Neutrophils Absolute 3.23 1.60 - 6.10 10*3/uL LAB HEMATOLOGY METHOD 05/22/2022 5:32 PM EDT [facility] Lymphocytes Absolute 1.67 1.20 - 3.90 10*3/uL LAB HEMATOLOGY METHOD 05/22/2022 5:32 PM EDT [facility] Monocytes Absolute 0.27(L) 0.30 - 0.90 10*3/uL LAB HEMATOLOGY METHOD 05/22/2022 5:32 PM EDT [facility] Eosinophils Absolute 0.01 0.00 - 0.50 10*3/uL LAB HEMATOLOGY METHOD 05/22/2022 5:32 PM EDT [facility] Basophils Absolute 0.03 0.00 - 0.10 10*3/uL LAB HEMATOLOGY METHOD 05/22/2022 5:32 PM EDT [facility] Immature Granulocytes Absolute 0.02 0.00 - 0.06 10*3/uL LAB HEMATOLOGY METHOD 05/22/2022 5:32 PM EDT [facility] Blood Venous blood specimen / Unknown Venipuncture / Unknown 05/22/2022 5:25 PM EDT 05/22/2022 5:29 PM EDT Narrative [facility] - 05/22/2022 5:32 PM EDT Therapeutic decision making should be based on absolute values, rather than percentages. us Mireya NAJERA LAB BLOOD ORDERABLES Final Resul t [facility] [address] [place] [address] documented in this encounter Visit Diagnoses Diagnosis Nausea, vomiting and diarrhea- Primary Nausea with vomiting Abdominal pain, epigastric documented in this encounter Administered Medications Inactive Administered Medications - up to 3 most recent administrations Medication Order MAR Action Action Date Dose Rate Site famotidine PF (Pepcid) injection 20 mg 20 mg, Intravenous, Once, 1 dose, On Annabel 05/22/22 at 1620, STAT Given 05/22/2022 5:31 PM EDT 20 mg lactated Ringer's infusion 1,000 mL 1,000 mL, Intravenous, Once, 1 dose, On Annabel 05/22/22 at 1620, STAT New Bag 05/22/2022 5:23 PM EDT 1,000 mL lactated Ringer's infusion 1,000 mL 1,000 mL, Intravenous, Once, 1 dose, On Annabel 05/22/22 at 1910, STAT New Bag 05/22/2022 7:23 PM EDT 1,000 mL morphine PF 4 mg 4 mg, Intravenous, Once, 1 dose, On Annabel 05/22/22 at 1620, STAT Given 05/22/2022 5:31 PM EDT 4 mg ondansetron (Zofran) injection 4 mg 4 mg, Intravenous, Once, 1 dose, On Annabel 05/22/22 at 1645, STAT Given 05/22/2022 5:31 PM EDT 4 mg oxyCODONE (Roxicodone) immediate release tablet 10 mg 10 mg, Oral, Once, 1 dose, On Annabel 05/22/22 at 1910, STAT Given 05/22/2022 7:14 PM EDT 10 mg promethazine (Phenergan) tablet 25 mg 25 mg, Oral, Once, 1 dose, On Annabel 05/22/22 at 1910, STAT Given 05/22/2022 7:14 PM EDT 25 mg documented in this encounter Active and Recently Administered Medications Times are shown in EDT. Scheduled Medication Order 05/20/2022 05/21/2022 05/22/2022 famotidine PF (Pepcid) injection 20 mg (COMPLETED) 20 mg, Intravenous, Once, 1 dose, On Annabel 05/22/22 at 1620, STAT 1731 (Given - Provid er: Marybeth Lopez RN) lactated Ringer's infusion 1,000 mL (COMPLETED) 1,000 mL, Intravenous, Once, 1 dose, On Annabel 05/22/22 at 1620, STAT 1723 (New Bag - Prov ider: Dipika Ball RN - Comment: unable to obtain PIV access)1956 (Stopped - Provider: Marybeth Lopez RN) lactated Ringer's infusion 1,000 mL (COMPLETED) 1,000 mL, Intravenous, Once, 1 dose, On Annabel 05/22/22 at 1910, STAT 1923 (New Bag - Prov ider: Marybeth Lopez RN)1956 (Stopped - Provider: Marybeth Lopez RN) morphine PF 4 mg (COMPLETED) 4 mg, Intravenous, Once, 1 dose, On Annabel 05/22/22 at 1620, STAT 1731 (Given - Provid er: Marybeth Lopez RN) ondansetron (Zofran) injection 4 mg (COMPLETED) 4 mg, Intravenous, Once, 1 dose, On Annabel 05/22/22 at 1645, STAT 1731 (Given - Provid er: Marybeth Lopez RN) oxyCODONE (Roxicodone) immediate release tablet 10 mg (COMPLETED) 10 mg, Oral, Once, 1 dose, On Annabel 05/22/22 at 1910, STAT 1914 (Given - Provid er: Marybeth Lopez RN) promethazine (Phenergan) tablet 25 mg (COMPLETED) 25 mg, Oral, Once, 1 dose, On Annabel 05/22/22 at 1910, STAT 1914 (Given - Provid er: Marybeth Lopez RN) documented in this encounter Additional Health Concerns Infection Onset Date Last Indicated Resolved Time COVID-19 Rule-Out 05/22/2022 05/22/2022 05/22/2022 6:25 PM EDT Assessment Noted Time A fall risk assessment has been complete d for the patient 11/21/2020 2:30 PM EDT documented as of this encounter Care Teams Licensed Physical Therapist Assistant Relationship Specialty Start Date End Date Elmo Escobar MD PCP - General 10/18/20 01/05/23 documented as of this encounter
--- OUTSIDE RECORDS SUMMARY | 2024-02-03 15:22 | XMS_ITS | Encounter Summary ---
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 No / Unsure 03/22/2022 4:29 PM EST documented as of this encounter Plan of Treatment Not on file documented as of this encounter Visit Diagnoses Not on filedocumented in this encounter Additional Health Concerns Assessment Noted Time A fall risk assessment has been complete d for the patient 11/21/2020 2:30 PM EDT documented as of this encounter Care Teams Mill Order Scheduler Relationship Specialty Start Date End Date Elmo Escobar MD PCP - General 10/18/20 01/05/23 documented as of this encounter
--- OUTSIDE RECORDS SUMMARY | 2024-02-03 15:22 | XMS_ITS | Encounter Summary ---
Author Organization Healthcare Address [address] [place] [address] Care Team Providers Care Seconds Grader Name Role Phone Elmo Escobar MD Primary Care Provider [phone] Reason for Visit * Reason Comments Abdominal Pain Vomiting Diarrhea Encounter Details Date Type Department Care Team (Late st Contact Info) Description 06/14/2022 12:34 PM EDT - 06/14/2022 6:04 PM EDT Emergency [facility] Emergency Department [address] [place] [address] Epigastric pain (Primary Dx) Discharge [...] drink first t caleb in the morning (EYE-GLAZE SPRAYER) to steady your nerves or to get [...] Sign Reading Time Taken Comments Blood Pressure 142/89 06/14/2022 6:03 PM EDT Pulse 82 06/14/2022 6:03 PM EDT Temperature 36.7 ??C (98.1 ??F) 06/14/2022 6:03 PM ED T Respiratory Rate 18 06/14/2022 6:03 PM EDT Oxygen Saturation 98% 06/14/2022 6:03 PM EDT Inhaled Oxygen Concentration - - Weight 108 kg (238 lb 8.6 oz) 06/14/2022 12:29 P M EDT Height 165.1 cm (5' 5 ) 06/14/2022 12:29 PM EDT Body Mass Index 39.69 06/14/2022 12:29 PM EDT documented in this encounter Discharge Instructions * Discharge Instructions* Kimi Fay PA - 06/14/2022 5:03 PM EDT Patient has a long history of epigastric pain. Patient currently does see GI but does not have a timely follow-up appointment. Patient will take Zofran and not Tylenol with a little bit of oxycodone for the next several days until she sees her primary care. Patient will follow with primary care. Return for worsening symptoms. Patient was found to have a right breast cyst. It was originally diagnosed when patient was 20 and it has been stable. 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 documented in this encounter Medications at Time of Discharge oxyCODONE (Roxicodone) 5 MG immediate release tablet Take 1 tablet (5 mg total) by mouth every 6 (six) hours if needed for severe pain (pain) for up to 3 days. 8 tablet 06/14/2022 06/18/19 23 acetaminophen (Tylenol) 500 MG tablet Take [...] for nausea. 12 tablet 06/14/2022 07/25/19 23 oxyCODONE (Roxicodone) 5 MG immediate release tablet Take 1 tablet (5 mg total) by mouth every 8 (eight) hours if needed for severe pain (pain). 6 tablet 06/11/2022 06/20/19 23 oxyCODONE-acetamino phen (Percocet) 7.5-325 MG tablet Take 1 tablet by mouth 3 (three) times a day if needed for severe pain. 05/28/20 23 pancrelipase, Vfb-Ofwq-Lhak, (Creon) 97102-16095 units capsule Take 2 capsules by mouth [...] (six) hours if needed. 12/15/2021 08/09/19 23 sucralfate (Carafate) 1 GM/10ML suspension Take 1 g by mouth 4 (four) times a day. 07/25/19 23 venlafaxine XR (Effexor-XR) 150 MG 24 hr capsule Take 1 capsule (150 mg total) by mouth 1 (one) time each day. 03/22/2022 07/21/19 23 documented as of this encounter Miscellaneous Notes * ED Provider Notes - Kimi Fay PA - 06/14/2022 12:21 PM EDT oxy HPI Chief Complaint Patient presents with Abdominal Pain Vomiting Diarrhea Patient is who is here today complaining of a flare of her episodic abdominal pain. Patient states that this pain is indicative of her normal episodes. Patient states that she is been treated for this before. Patient was seen here in the emergency department this past Thursday and was given oxycodone and Zofran. Patient states that it 2:00 a.m. this morning she woke up complaining of severe intractable abdominal pain. Patient also complains of vomiting and diarrhea. Patient unable to tolerate oral intake. Patient states her pain is epigastric in nature and wraps around to the back. She complains that it is constant and throbbing. Patient does have a history of a cholecystectomy. No data recorded Patient History Past Medical [...] Positive for abdominal pain, nausea and vomiting. All other systems reviewed and are negative. Physical Exam ED Triage Vitals [06/14/22 1229] Temp Heart Rate Resp BP 37 ??C (98.6 ??F) 111 20 (!) 150/93 SpO2 Temp src Heart Rate Source Patient Position 100 % -- -- -- BP Location FiO2 (%) -- -- Physical Exam Vitals and nursing note reviewed. Constitutional: Appearance: She is well-developed. She is obese. HENT: Head: Normocephalic. Cardiovascular: Rate and Rhythm: Tachycardia present. Heart sounds: Normal heart sounds. Pulmonary: Effort: Pulmonary effort is normal. Breath sounds: Normal breath sounds. Abdominal: General: There is abdominal bruit. Palpations: Abdomen is soft. Tenderness: There is abdominal tenderness in the epigastric area. There is no guarding. Skin: General: Skin is warm and dry. Neurological: General: No focal deficit present. Mental Status: She is alert. Psychiatric: Mood and Affect: Mood normal. Behavior: Behavior normal. Labs in last 18 hours CBC WBC 6.06 Hb 11.4 Plt ?? Hct 35.1 ANC 3.72 D.Bili ?? Lipase [address] scan abdomen and pelvis was negative for abnormalities other than there is a right ovarian cyst and a right breast cyst ED Course & MDM ED Course as of 06/14/227 Sat Jun 14, 2022 1319 EKG now - STAT (adult) No STEMI to my independent review [ER] 1347 Urinalysis with reflex microscopic(!) [ER] 1416 EKG now - STAT (adult) [PK] 1522 Phosphorus(!): 2.1 [PK] 2144 Urinalysis with reflex microscopic(!) [PK] ED Course User Index [ER] Carter Donis MD [PK] DANIA Brown Clinical Impressions as of 06/14/222146 Epigastric pain ED Disposition: home Medical Decision Making Patient was in obvious distress on arrival. She was given Zofran, fluids, morphine. Slowly over time she began to improve. Patient was given 1 dose of oxycodone. Patient was able to take a by mouth challenge without vomiting. I discharged her with a little bit of pain medicine to include oxycodone and she will follow with her primary care this coming Thursday. She does have follow-up at some point with GI. She will call and see if she can get a sooner appointment. Amount and/or Complexity of Data Reviewed Independent Historian: parent Details: Parent helps describe length of time that this has gone on and the fact that she is never pain-free Labs: ordered. Decision-making details documented in ED Course. Radiology: ordered. Decision-making details documented in ED Course. ECG/medicine tests: ordered. Decision-making details documented in ED Course. ED Prescriptions None Zofran #8 oxycodone - DANIA Brown 06/14/222154 Cosigned by Carter Donis MD at 06/16/2022 7:10 AM EDT Associated attestation - Carter Donis MD - 06/16/2022 7:10 AM EDT The patient was seen only by Advanced Practice Provider (AJAY), and care was reviewed with me. * ED Triage Notes - Jacinto Jha APRN - 06/14/2022 12:21 PM EDT Pt c/o severe epigastric pain radiating to back w N/V/D significantly worse today after eval 06/11 here for known pancreatitis but pt opted for discharge at that time documented in this encounter Plan of Treatment Not on file documented as of this encounter Procedures Procedure Name Priority Date/Time Associated Diagnosis Comments CT ABDOMEN PELVIS W IV CONTRAST STAT 06/14/2022 3:37 PM EDT URINE GUNTER PANEL Routine 06/14/2022 1:26 PM EDT URINALYSIS MICROSCOPIC FOR UA REFLEX STAT 06/14/2022 1:26 PM EDT URINALYSIS WITH REFLEX MICROSCOPIC STAT 06/14/2022 1:26 PM EDT MORPHOLOGY STAT 06/14/2022 1:10 PM EDT TROPONIN T, HIGH SENSITIVITY, 0 HOUR, PLASMA, REFLEX TO 2 HOUR STAT 06/14/2022 1:10 PM EDT LACTATE, VENOUS STAT 06/14/2022 1:10 PM EDT CBC WITH AUTO DIFFERENTIAL STAT 06/14/2022 1:10 PM EDT TEST QUALITATIVE PLASMA STAT 06/14/2022 1:10 PM EDT PHOSPHORUS, PLASMA STAT 06/14/2022 1: 10 PM EDT MAGNESIUM, PLASMA STAT 06/14/2022 1:1 0 PM EDT LIPASE, PLASMA STAT 06/14/2022 1:10 PM EDT COMPREHENSIVE METABOLIC PANEL, PLASMA STAT 06/14/2022 1:10 PM EDT ECG ADULT STAT 06/14/2022 1:08 PM EDT documented in this encounter Results * CT Abdomen Pelvis w IV Contrast (06/14/2022 3:37 PM EDT) Anatomical Region Laterality Modality Abdomen, Pelvis Computed Tomogra phy Impressions 06/14/2022 4:04 PM EDT No peripancreatic fat stranding or pancreatic fluid collections to suggest pancreatitis. Diffuse thickening of the stomach can be secondary to under distention or gastritis. Right ovarian cyst 3.4 cm likely physiological. Similar 2.4 cm right breast nodule. Correlate with nonemergent breast ultrasound. Drafted by Marce Bellamy MD on 06/14/2022 4:02 PM Final report signed by Marce Bellamy MD on 06/14/2022 4:04 PM Narrative 06/14/2022 4:04 PM EDT CLINICAL INDICATION: Pt c/o severe epigastric pain radiating to back w N/V/D significantly worse today TECHNIQUE: Imaging of the abdomen and pelvis was performed, from lung bases through pubic symphysis, using spiral technique, following administration of IV contrast, Omnipaque 300, 100 mL. Delayed (excretory phase) images were performed through the kidneys. Reformatted images in the coronal and sagittal planes were generated from the axial data set to facilitate diagnostic accuracy. Total DLP (Dose-Length Product): 1511.79 mGy.cm. Please note: The reported value represents the total of one or more individual components during the CT acquisition on this date and at this time, and as such, the same value may appear in more than one CT report depending on the interpreting/reporting physicians. COMPARISON: 07/28/2021 FINDINGS: Lung Bases: The lung bases are clear. Liver/Gallbladder/Biliary system: The liver demonstrates homogeneous enhancement. Gallbladder surgically absent No intra- or extra-hepatic biliary ductal dilatation. Spleen: The spleen enhances homogeneously. Pancreas: The pancreas enhances homogeneously.There is no peripancreatic fat stranding or fluid collections. Adrenals: The adrenals are morphologically unremarkable. Kidneys: The kidneys demonstrate symmetric nephrogram and excretion. No renal or ureteral calculi. No hydronephrosis. Bowel/Mesentery: Diffuse thickening of the stomach can be secondary to under distention or gastritis. The lower esophagus is unremarkable. The small bowel loops are not dilated. The large bowel loops are not dilated. The appendix is visualized and normal. Vessels/Lymph Nodes: The abdominal aorta is unremarkable. No lymphadenopathy within the abdomen or pelvis. Fluid Survey: No free fluid in the abdomen. No free fluid in the pelvis. Pelvis: Normal uterus. There is a 3.7 cm right ovarian cyst. Body Wall: Incidental 2.4 cm right breast nodule. Bones: No acute fracture. Procedure Note Marce Bellamy MD - 06/14/2022 CLINICAL INDICATION: Pt c/o severe epigastric pain radiating to back w N/V/D significantlyworse today TECHNIQUE: Imaging of the abdomen and pelvis was performed, from lung bases throughpubic symphysis, using spiral technique, following administration of IVcontrast, Omnipaque 300, 100 mL. Delayed (excretory phase) images wereperformed through the kidneys. Reformatted images in the coronal andsagittal planes were generated from the axial data set to facilitatediagnostic accuracy. Total DLP (Dose-Length Product): 1511.79 mGy.cm. Please note: The reportedvalue represents the total of one or more individual components during theCT acquisition on this date and at this time, and as such, the same valuemay appear in more than one CT report depending on theinterpreting/reporting physicians. COMPARISON: 07/28/2021 FINDINGS: Lung Bases: The lung bases are clear. Liver/Gallbladder/Biliary system: The liver demonstrates homogeneousenhancement. Gallbladder surgically absent No intra- or extra-hepaticbiliary ductal dilatation. Spleen: The spleen enhances homogeneously. Pancreas: The pancreas enhances homogeneously.There is no peripancreaticfat stranding or fluid collections. Adrenals: The adrenals are morphologically unremarkable. Kidneys: The kidneys demonstrate symmetric nephrogram and excretion. Norenal or ureteral calculi. No hydronephrosis. Bowel/Mesentery: Diffuse thickening of the stomach can be secondary tounder distention or gastritis. The lower esophagus is unremarkable. Thesmall bowel loops are not dilated. The large bowel loops are not dilated.The appendix is visualized and normal. Vessels/Lymph Nodes: The abdominal aorta is unremarkable. Nolymphadenopathy within the abdomen or pelvis. Fluid Survey: No free fluid in the abdomen. No free fluid in the pelvis. Pelvis: Normal uterus. There is a 3.7 cm right ovarian cyst. Body Wall: Incidental 2.4 cm right breast nodule. Bones: No acute fracture. IMPRESSION: No peripancreatic fat stranding or pancreatic fluid collections to suggestpancreatitis. Diffuse thickening of the stomach can be secondary to under distention orgastritis. Right ovarian cyst 3.4 cm likely physiological. Similar 2.4 cm right breast nodule. Correlate with nonemergent breastultrasound. Drafted by Marce Belalmy MD on 06/14/2022 4:02 PM Final report signed by Marce Bellamy MD on 06/14/2022 4:04 PM Kimi NAJERA IMG CT PROCEDURES Final Result * Urine Gunter (06/14/2022 1:26 PM EDT) Urine Urine specimen obtained by clean catch procedure / Unknown 06/14/2022 1:26 PM EDT 06/14/2022 2:17 PM EDT Kimi NAJERA LAB URINE ORDERABLES Final Res ult Performing Organization Address City/[facility]/ZIP Co de Phone Number [facility] [address] [place] [address] * Urinalysis Microscopic Examination (06/14/2022 1:26 PM EDT) Urine Urine specimen obtained by clean catch procedure / Unknown Non-blood Collection / Unknown 06/14/2022 1:26 PM EDT 06/14/2022 1:41 PM EDT Kimi NAJERA LAB URINE ORDERABLES Final Res ult Performing Organization Address City/[facility]/ZIP Co de Phone Number [facility] [address] [place] [address] * (ABNORMAL) Urinalysis with reflex microscopic (06/14/2022 1:26 PM EDT) Color, Urine Yellow LAB URINALYSIS - AUTOMATED METHOD 06/14/2022 2:01 PM EDT [facility] Clarity, Urine Clear LAB URINALYSIS - AUTOMATED METHOD 06/14/2022 2:01 PM EDT [facility] Spec [place], Urine 1.019 <=1.005 to >=1.030 LAB URINALYSIS - AUTOMATED METHOD 06/14/2022 2:01 PM EDT [facility] pH, Urine 6.5 4.5 to 8 LAB URINALYSIS - AUTOMATED METHOD 06/14/2022 2:01 PM EDT [facility] Protein, Urine Negative Negative mg/dL LAB URINALYSIS - AUTOMATED METHOD 06/14/2022 2:01 PM EDT [facility] Glucose, Urine Negative Negative mg/dL LAB URINALYSIS - AUTOMATED METHOD 06/14/2022 2:01 PM EDT [facility] Ketones, Urine Negative Negative mg/dL LAB URINALYSIS - AUTOMATED METHOD 06/14/2022 2:01 PM EDT [facility] Blood, Urine Moderate(A) Negative LAB URINALYSIS - AUTOMATED METHOD 06/14/2022 2:01 PM EDT [facility] Bilirubin, Urine Negative Negative LAB URINALYSIS - AUTOMATED METHOD 06/14/2022 2:01 PM EDT [facility] Urobilinogen, Urine 0.2 0.2 to 1.0 mg/dL LAB URINALYSIS - AUTOMATED METHOD 06/14/2022 2:01 PM EDT [facility] Leukocytes, Urine Negative Negative LAB URINALYSIS - AUTOMATED METHOD 06/14/2022 2:01 PM EDT [facility] Nitrite, Urine Negative Negative LAB URINALYSIS - AUTOMATED METHOD 06/14/2022 2:01 PM EDT [facility] RBC, Urine 4 - 10(A) 0 to 3 /HPF 06/14/2022 2:01 PM EDT [facility] Comment:This result was prev iously suppressed from the chart. WBC, Urine 0 - 5 0 to 5 /HPF 06/14/2022 2:01 PM EDT [facility] Comment:This result was prev iously suppressed from the chart. Squamous Epithelial Cells 0 - 5 0 to 5 /HPF 06/14/2022 2:01 PM EDT [facility] Comment:This result was prev iously suppressed from the chart. Hyaline Casts 0 - 8 0 to 8 /LPF 06/14/2022 2:01 PM EDT [facility] Comment:This result was prev iously suppressed from the chart. Bacteria, Urine Negative Negative 06/14/2022 2:01 PM EDT [facility] Comment:This result was prev iously suppressed from the chart. Urine Urine specimen obtained by clean catch procedure / Unknown Non-blood Collection / Unknown 06/14/2022 1:26 PM EDT 06/14/2022 1:41 PM EDT [facility] - 06/14/2022 2:01 PM EDT Performed by manual method Kimi NAJERA LAB URINE ORDERABLES Final Res ult Performing Organization Address [facility] de Phone Number [facility] [address] [place] [address] * Morphology (06/14/2022 1:10 PM EDT) RBC Morphology RBC Morphology Consistent with Indices and RDW LAB HEMATOLOGY METHOD 06/14/2022 1:57 PM EDT [facility] Platelet Estimate Platelet count not valid due to clumping. Appears normal. LAB HEMATOLOGY METHOD 06/14/2022 1:57 PM EDT [facility] Blood Venous blood specimen / Unknown Venipuncture / Unknown 06/14/2022 1:10 PM EDT 06/14/2022 1:18 PM EDT us Kimi NAJERA LAB BLOOD ORDERABLES Final Res ult Performing Organization Address [facility] de Phone Number [facility] [address] [place] [address] * hCG qualitative (06/14/2022 1:10 PM EDT) Test Negative Negative 06/14/2022 3:11 PM EDT [facility] Blood Venous blood specimen / Unknown Venipuncture / Unknown 06/14/2022 1:10 PM EDT 06/14/2022 1:18 PM EDT Narrative [facility] - 06/14/2022 3:11 PM EDT Reference Range: Males and non- females: Negative. us Kimi NAJERA LAB BLOOD ORDERABLES Final Res ult Performing Organization Address [facility] Co de Phone Number [facility] [address] [place] [address] * (ABNORMAL) CBC w/diff (06/14/2022 1:10 PM EDT) WBC Count 6.06 3.70 - 10.30 10*3/uL LAB HEMATOLOGY METHOD 06/14/2022 1:57 PM EDT [facility] RBC Count 4.19 3.90 - 5.20 10*6/uL LAB HEMATOLOGY METHOD 06/14/2022 1:57 PM EDT [facility] HGB 11.4 11.2 - 15.7 g/dL LAB HEMATOLOGY METHOD 06/14/2022 1:57 PM EDT [facility] HCT 35.1 34.0 - 45.0 % LAB HEMATOLOGY METHOD 06/14/2022 1:57 PM EDT [facility] Platelet Count LAB HEMATOLOGY METHOD 06/14/2022 1:57 PM EDT [facility] Comment:Platelet count not v alid due to clumping. Appears Normal. MCV 84 79 - 98 fL LAB HEMATOLOGY METHOD 06/14/2022 1:57 PM EDT [facility] MCH 27.2 26.0 - 32.0 pg LAB HEMATOLOGY METHOD 06/14/2022 1:57 PM EDT [facility] MCHC 32.5 30.7 - 35.5 g/dL LAB HEMATOLOGY METHOD 06/14/2022 1:57 PM EDT [facility] RDW 14.9(H) 11.5 - 14.5 % LAB HEMATOLOGY METHOD 06/14/2022 1:57 PM EDT [facility] MPV LAB HEMATOLOGY METHOD 06/14/2022 1:57 PM EDT [facility] Comment:Not Measured nRBC 0.0 <=0.0 per 100 WBCs LAB HEMATOLOGY METHOD 06/14/2022 1:57 PM EDT [facility] Differential Type Automated LAB HEMATOLOGY METHOD 06/14/2022 1:57 PM EDT [facility] Neutrophils % 61.0 % LAB HEMATOLOGY METHOD 06/14/2022 1:57 PM EDT [facility] Lymphocytes % 33.0 % LAB HEMATOLOGY METHOD 06/14/2022 1:57 PM EDT [facility] Monocytes % 4.0 % LAB HEMATOLOGY METHOD 06/14/2022 1:57 PM EDT [facility] Eosinophils % 0.0 % LAB HEMATOLOGY METHOD 06/14/2022 1:57 PM EDT [facility] Basophils % 1.0 % LAB HEMATOLOGY METHOD 06/14/2022 1:57 PM EDT [facility] Immature Granulocytes % 1.0 % LAB HEMATOLOGY METHOD 06/14/2022 1:57 PM EDT [facility] Neutrophils Absolute 3.72 1.60 - 6.10 10*3/uL LAB HEMATOLOGY METHOD 06/14/2022 1:57 PM EDT [facility] Lymphocytes Absolute 1.97 1.20 - 3.90 10*3/uL LAB HEMATOLOGY METHOD 06/14/2022 1:57 PM EDT [facility] Monocytes Absolute 0.26(L) 0.30 - 0.90 10*3/uL LAB HEMATOLOGY METHOD 06/14/2022 1:57 PM EDT [facility] Eosinophils Absolute 0.02 0.00 - 0.50 10*3/uL LAB HEMATOLOGY METHOD 06/14/2022 1:57 PM EDT [facility] Basophils Absolute 0.04 0.00 - 0.10 10*3/uL LAB HEMATOLOGY METHOD 06/14/2022 1:57 PM EDT [facility] Immature Granulocytes Absolute 0.05 0.00 - 0.06 10*3/uL LAB HEMATOLOGY METHOD 06/14/2022 1:57 PM EDT [facility] Blood Venous blood specimen / Unknown Venipuncture / Unknown 06/14/2022 1:10 PM EDT 06/14/2022 1:18 PM EDT Narrative [facility] - 06/14/2022 1:57 PM EDT Therapeutic decision making should be based on absolute values, rather than percentages. Kimi NAJERA LAB BLOOD ORDERABLES Final Res ult Performing Organization Address City/[facility]/ZIP Co de Phone Number [facility] [address] [place] [address] * Troponin now and 120 min (06/14/2022 1:10 PM EDT) Troponin T, High Sensitivity, 0 Hour <6 <14 ng/L 06/14/2022 3:11 PM EDT [facility] Blood Venous blood specimen / Unknown Venipuncture / Unknown 06/14/2022 1:10 PM EDT 06/14/2022 1:18 PM EDT Kimi NAJERA LAB BLOOD ORDERABLES Final Res ult [facility] [address] [place] [address] * Lactic acid, venous (06/14/2022 1:10 PM EDT) Lactate, Venous, Whole Blood 1.6 0.5 - 2.2 mmol/L LAB HEMATOLOGY METHOD 06/14/2022 1:25 PM EDT [facility] Blood Venous blood specimen / Unknown Venipuncture / Unknown 06/14/2022 1:10 PM EDT 06/14/2022 1:17 PM EDT Kimi NAJERA LAB BLOOD ORDERABLES Final Res ult [facility] [address] [place] [address] * Lipase (06/14/2022 1:10 PM EDT) Lipase, Plasma 35 19 - 63 U/L 06/14/2022 3:04 PM EDT [facility] Blood Venous blood specimen / Unknown Venipuncture / Unknown 06/14/2022 1:10 PM EDT 06/14/2022 1:18 PM EDT Kimi NAJERA LAB BLOOD ORDERABLES Final Res ult Performing Organization Address City/[facility] Co de Phone Number [facility] [address] [place] [address] * (ABNORMAL) Phosphorus (06/14/2022 1:10 PM EDT) Phosphorus, Plasma 2.1(L) 2.5 - 4.5 mg/dL 06/14/2022 3:04 PM EDT [facility] Blood Venous blood specimen / Unknown Venipuncture / Unknown 06/14/2022 1:10 PM EDT 06/14/2022 1:18 PM EDT Kimi NAJERA LAB BLOOD ORDERABLES Final Res ult Performing Organization Address City/[facility]/ZIP Co de Phone Number [facility] [address] [place] [address] * Magnesium (06/14/2022 1:10 PM EDT) Magnesium, Plasma 2.0 1.9 - 2.4 mg/dL 06/14/2022 3:04 PM EDT [facility] Blood Venous blood specimen / Unknown Venipuncture / Unknown 06/14/2022 1:10 PM EDT 06/14/2022 1:18 PM EDT us Kimi NAJERA LAB BLOOD ORDERABLES Final Res ult [facility] [address] [place] [address] * (ABNORMAL) CMP (06/14/2022 1:10 PM EDT) Pathologist [facility] Glucose, Plasma 93 74 - 99 mg/dL 06/14/2022 3:23 PM EDT [facility] BUN, Plasma 9 7 - 21 mg/dL 06/14/2022 3:23 PM EDT [facility] Creatinine, Plasma 0.47(L) 0.60 - 1.10 mg/dL 06/14/2022 3:23 PM EDT [facility] BUN/Creatinine Ratio 19 06/14/2022 3:23 PM EDT [facility] Sodium, Plasma 138 136 - 145 mmol/L 06/14/2022 3:23 PM EDT [facility] Potassium, Plasma 4.2 3.7 - 4.8 mmol/L 06/14/2022 3:23 PM EDT [facility] Chloride, Plasma 106 97 - 107 mmol/L 06/14/2022 3:23 PM EDT [facility] CO2, Plasma 22 22 - 29 mmol/L 06/14/2022 3:23 PM EDT [facility] Anion Gap 10 6 - 16 mmol/L 06/14/2022 3:23 PM EDT [facility] Total Calcium, Plasma 8.6(L) 8.9 - 10.2 mg/dL 06/14/2022 3:23 PM EDT [facility] Total Protein 6.3 6.3 - 7.9 g/dL 06/14/2022 3:23 PM EDT [facility] Albumin, Plasma 3.9 3.5 - 5.2 g/dL 06/14/2022 3:23 PM EDT [facility] AST, Plasma 23 11 - 32 U/L 06/14/2022 3:23 PM EDT [facility] ALT, Plasma 39(H) 8 - 33 U/L 06/14/2022 3:23 PM EDT [facility] Alkaline Phosphatase, Plasma 106(H) 35 - 104 U/L 06/14/2022 3:23 PM EDT [facility] Total Bilirubin, Plasma <0.2(L) 0.2 - 1.1 mg/dL 06/14/2022 3:23 PM EDT [facility] eGFRcr 127.5 mL/min/1.7 3m*2 06/14/2022 3:23 PM EDT [facility] Comment: Reported eGFRcr in mL/min/1.73m2 is based the CKD-EPI 2020 equation that does not use a race coefficient. Effective 09/18/21 our laboratory changed the eGFR calculation to the CKD-EPI 2020 equation from the previously reported eGFR, based on the MDRD equation. ??For comparisons between the two equations, please see laboratory website: ??[email or web address] Blood Venous blood specimen / Unknown Venipuncture / Unknown 06/14/2022 1:10 PM EDT 06/14/2022 1:18 PM EDT Kimi NAJERA LAB BLOOD ORDERABLES Final Res ult [facility] [address] [place] [id number] * EKG now - STAT (adult) (06/14/2022 1:08 PM EDT) EKG DIAGNOSIS CLASS Borderline Abnormal MUSE ECG Ventricular Rate 101 BPM MUSE ECG Atrial Rate 101 BPM MUSE ECG [place] Interval 130 ms MUSE ECG QRSD Interval 84 ms MUSE ECG QT Interval 356 ms MUSE ECG QTC Interval 461 ms MUSE ECG P [place] 26 degrees MUSE ECG R [place] 28 degrees MUSE ECG T Wave [place] 25 degrees MUSE ECG Diagnosis Sinus tachycardia MUSE ECG Diagnosis Otherwise normal ECG MUSE ECG Diagnosis Confirmed by Benjamin Razo ([id number]) on 06/15/2022 4:56:31 PM MUSE ECG 06/14/2022 1:08 PM EDT 06/15/2022 4:56 PM EDT us Kimi NAJERA ECG ORDERABLES Final Result MUSE ECG documented in this encounter Visit Diagnoses Diagnosis Epigastric pain- Primary Abdominal pain, epigastric documented in this encounter Administered Medications Inactive Administered Medications - up to 3 most recent administrations Medication Order MAR Action Action Date Dose Rate Site gi cocktail oral solution 30 mL 30 mL, Oral, Once, 1 dose, On 06/14/22 at 1420, STAT Given 06/14/2022 2:29 PM EDT 30 mL iohexol (OMNIPaque) 300 MG/ML injection 100 mL 100 mL, Intravenous, Once in imaging, 1 dose, Starting on 06/14/22 at 1509, Until 06/14/22 at 1529, Routine, Imaging Protocol Orders Given 06/14/2022 3:29 PM EDT 100 mL ketorolac (Toradol) injection 15 mg 15 mg, Intravenous, Once, 1 dose, On 06/14/22 at 1305, STAT Given 06/14/2022 1:22 PM EDT 15 mg morphine PF 4 mg 4 mg, Intravenous, Once, 1 dose, On 06/14/22 at 1305, STAT Given 06/14/2022 1:23 PM EDT 4 mg ondansetron ODT (Zofran-ODT) disintegrating tablet 4 mg 4 mg, Oral, Once, 1 dose, On 06/14/22 at 1305, STAT Given 06/14/2022 1:23 PM EDT 4 mg oxyCODONE (Roxicodone) immediate release tablet 5 mg 5 mg, Oral, Once, 1 dose, On 06/14/22 at 1520, STAT Given 06/14/2022 3:23 PM EDT 5 mg sodium chloride 0.9 % infusion 1,000 mL 1,000 mL, Intravenous, Once, 1 dose, On 06/14/22 at 1305, STAT New Bag 06/14/2022 1:23 PM EDT 1,000 mL sucralfate (Carafate) 1 GM/10ML suspension 1 g 1 g, Oral, Once, 1 dose, On 06/14/22 at 1420, STAT Given 06/14/2022 2:29 PM EDT 1 g documented in this encounter Active and Recently Administered Medications Times are shown in EDT. Scheduled Medication Order 06/12/2022 06/13/2022 06/14/2022 gi cocktail oral solution 30 mL (COMPLETED) 30 mL, Oral, Once, 1 dose, On 06/14/22 at 1420, STAT 1429 (Given - Provid er: Alexandria Hernandez RN) iohexol (OMNIPaque) 300 MG/ML injection 100 mL (COMPLETED) 100 mL, Intravenous, Once in imaging, 1 dose, Starting on 06/14/22 at 1509, Until 06/14/22 at 1529, Routine, Imaging Protocol Orders 1529 (Given - Provid er: Agnes Ralph) ketorolac (Toradol) injection 15 mg (COMPLETED) 15 mg, Intravenous, Once, 1 dose, On 06/14/22 at 1305, STAT 1322 (Given - Provid er: Alexandria Hernandez RN) morphine PF 4 mg (COMPLETED) 4 mg, Intravenous, Once, 1 dose, On 06/14/22 at 1305, STAT 1323 (Given - Provid er: Alexandria Hernandez RN) ondansetron ODT (Zofran-ODT) disintegrating tablet 4 mg (COMPLETED) 4 mg, Oral, Once, 1 dose, On 06/14/22 at 1305, STAT 1323 (Given - Provid er: Alexandria Hernandez RN) oxyCODONE (Roxicodone) immediate release tablet 5 mg (COMPLETED) 5 mg, Oral, Once, 1 dose, On 06/14/22 at 1520, STAT 1523 (Given - Provid er: Alexandria Hernandez RN) sodium chloride 0.9 % infusion 1,000 mL (COMPLETED) 1,000 mL, Intravenous, Once, 1 dose, On 06/14/22 at 1305, STAT 1323 (New Bag - Prov ider: Alexandria Hernandez RN)[id number] (Stopped - Provider: Alexandria Hernandez RN) sucralfate (Carafate) 1 GM/10ML suspension 1 g (COMPLETED) 1 g, Oral, Once, 1 dose, On 06/14/22 at 1420, STAT 1429 (Given - Provid er: Alexandria Hernandez RN) documented in this encounter Additional Health Concerns Assessment Noted Time A fall risk assessment has been complete d for the patient 11/21/2020 2:30 PM EDT documented as of this encounter Care Teams Seconds Grader Relationship Specialty Start Date End Date Elmo Escobar MD PCP - General 10/18/20 01/05/23 documented as of this encounter
--- OUTSIDE RECORDS SUMMARY | 2024-02-03 15:22 | XMS_ITS | Encounter Summary ---
Author Organization Healthcare Address [address] [place] [address] Care Team Providers Care Director Of Maternity Services Name Role Phone Elmo Escobar MD Primary Care Provider [phone] Encounter Details Date Type Department Care Team (Latest Contact Info) Description 05/22/2022 Travel Social History Tobacco Use Types Packs/Day [...] first t caleb in the morning ([employer]) to steady your nerves or to get [...] documented as of this encounter Care Teams Director Of Maternity Services Relationship Specialty Start Date End Date Elmo Escobar MD PCP - General 10/18/20 01/05/23 documented as of this encounter
--- OUTSIDE RECORDS SUMMARY | 2024-02-03 15:22 | XMS_ITS | Encounter Summary ---
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 No / Unsure 06/11/2022 10:48 AM EDT documented as of this encounter Last Filed Vital Signs Vital Sign Reading Time Taken Comments Blood Pressure 110/76 06/11/2022 3:06 PM EDT Pulse 64 06/11/2022 3:06 PM EDT Temperature 37.1 ??C (98.7 ??F) 06/11/2022 3:06 PM ED T Respiratory Rate 16 06/11/2022 3:06 PM EDT Oxygen Saturation 99% 06/11/2022 3:06 PM EDT Inhaled Oxygen Concentration - - Weight 104 kg (229 lb 4.5 oz) 06/11/2022 10:48 A M EDT Height 165.1 cm (5' 5 ) 06/11/2022 10:48 AM EDT Body Mass Index 38.15 06/11/2022 10:48 AM EDT documented in this encounter Discharge Instructions * Discharge Instructions* George Martinez MD - 06/11/2022 3:30 PM EDT At this time we have treated your upper abdominal pain in your able to tolerate fluids. There is a possibility that pain will recur if this happens your always welcome to return for repeat evaluation. We have prescribed abdominal pain control medications as well as nausea medication. Please continue to follow-up with your GI doctor documented in this encounter Medications at Time of Discharge acetaminophen (Tylenol) 500 MG tablet Take 1,000 mg by mouth every 6 (six) hours if needed for mild pain. 07/25/19 Cholecalciferol (VITAMIN D3 PO) Take by mouth 1 (one) time each day. 07/21/19 Cyanocobalamin (VITAMIN B12 PO) Take by mouth 1 (one) time each day. 07/21/19 23 ketoconazole (NIZOral) 2 % cream Apply 1 application topically 1 (one) time each day. 07/21/19 Latuda 40 MG tablet Take 1 tablet [...] needed for nausea or vomiting. 06/15/19 23 ondansetron ODT (Zofran-ODT) 4 MG disintegrating tablet Take 1 tablet (4 mg total) by mouth every 8 (eight) hours if needed for nausea. 20 tablet 06/11/2022 06/15/19 23 oxyCODONE (Roxicodone) 5 MG immediate release tablet Take 1 tablet (5 mg total) by mouth every 8 (eight) hours if needed for severe pain (pain). 6 tablet 06/11/2022 06/20/19 23 oxyCODONE-acetamino phen (Percocet) 7.5-325 MG tablet Take 1 tablet by mouth 3 (three) times a day if needed for severe pain. 07/21/19 23 pancrelipase, Psd-Cjmh-Pygn, (Creon) 05041-9[address]20 units capsule Take 2 capsules by mouth 3 (three) times a day with meals. 03/22/2022 07/21/19 pantoprazole (Protonix) 40 MG EC tablet Take 1 tablet (40 mg total) by mouth 2 (two) times a day. Do not crush, chew, or split. 120 tablet 04/20/2021 07/25/19 pregabalin (Lyrica) 100 MG capsule Take 1 [...] Provider Notes - George Martinez MD - 06/11/2022 10:31 AM EDT HPI Chief Complaint Patient presents with Abdominal Pain Lila Mcnally is a 36 y.o. female well known to this ER with PMH chronic pancreatitis due to alcoholism, fibromyalgia, GERD, and obesity who presents today with LUQ abdominal pain beginning yesterday. Pt has associated vomiting and diarrhea. She has tried ibuprofen, tylenol, Carafate, Zofran, Pepcid, pantoprazole, and omeprazole without improvement. Pt denies fever, chills, cough, sob, cp, BLEswelling, headache, urinary symptoms, changes to bowel habits. 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 by: Patient paraprofessional interpreter used: No Jo Coma Scale Score: 15 [...] and self-injury. Physical Exam ED Triage Vitals [06/11/22 1048] Temp Heart Rate Resp BP 36.9 ??C (98.4 ??F) 94 16 126/80 SpO2 Temp Source Heart Rate Source Patient [...] Oropharynx is clear. Eyes: Conjunctiva/sclera: Conjunctivae normal. Cardiovascular: Rate and Rhythm: Normal rate and regular rhythm. Pulmonary: Effort: Pulmonary effort is normal. No respiratory distress. Breath sounds: Normal breath sounds. Abdominal: Palpations: Abdomen is soft. Tenderness: There is abdominal tenderness (mild) in the left upper quadrant. Musculoskeletal: General: No signs of injury. Normal range of motion. Cervical back: Normal range of motion. Skin: General: Skin is warm and dry. Neurological: General: No focal deficit present. Mental Status: She is alert and oriented to person, place, and time. Psychiatric: Mood and Affect: Mood normal. Behavior: Behavior normal. Behavior is cooperative. ED Course & MDM Clinical Impressions as of 06/11/22 1742 Left upper quadrant abdominal pain ED Disposition: Medical Decision Making Date/Time: 06/11/2022/12:17 PM Scribe Attestation: This note was dictated to me, Mehnaz Reynoso, acting as a scribe for Dr. George Martinez MD. Attending Attestation: The documentation was recorded by Tiffanie Reynoso acting as scribe in my presenceat the time of the encounter and accurately reflects the service I personally performed. Lila Mcnally is a 36 yrs old female presents today for Chief Complaint Patient presents with Abdominal Pain . ED Course Narrative: Patient is a 36-year-old female who presents today with complaints of upper abdominal pain. Patient describes left upper quadrant pain that started yesterday similar to previous episodes of left upper quadrant pain for which she has frequent visits to the ER. Patient has tried multiple medications including Carafate, Pepcid, omeprazole without relief. Patient frequently visits the ER is able to obtain relief with narcotic pain medication. Patient states she is vomiting on arrival but is not actively vomiting when evaluated. We did give her several rounds of pain medication after setting expectations about only doing 2 rounds of medication prior to performing a by mouth challenge to determine readiness for discharge vs need for admission. Patient tolerates by mouth challenge without difficulty. She is given several doses of oxycodone to go home with as she is significantly concerned that pain will recur and be severe enough to require her to return to the ER. Patient's vital signs at the time of sign-out are reassuring. She is discharged in no acute distress and is recommended to follow-up with her family care doctor and GI specialist. Labs today revealed no evidence of urinary tract infection, negative test count mildly elevated lipase at 112. which could represent a mild case of pancreatitis for which the patient is known to have chronic pancreatitis. CBC however is reassuring. Patient's physical exam is not consistent with a severe case of pancreatitis at the moment. Recommended follow- up with her GI specialist Additional MDM Based on her history and physical exam, my differential diagnosis included several life threateningconditions including pancreatits, peptic ulcer, hepatitis. Ruling out the most morbid conditions drove my clinical assessment. In order to fully explore differential these tests and treatments were ordered. Orders Placed This Encounter Procedures CBC w/diff CMP Magnesium Lipase hCG qualitative Urinalysis with reflex microscopic Urinalysis Microscopic Examination Medications morphine PF 4 mg (has no administration in time range) promethazine (Phenergan) injection 12.5 mg (has no administration in time range) It should be noted that her chronic conditions includes chronci pancreatitis, gastritis, which currently is not at goal therapy. This complicates her clinical picture because it may be exacerbating symptoms. Additional history was provided by family I saw and evaluated an EKG on this patient prior to official read, according to my interpretation there is evidence of Normal EKG Patient reevaluated after treatments provided and condition improved with medications given. Based on work up today patient did not require consult with any service. Ultimately, this patient Was discharged Home (Discharge) [...] patients discharge education packet. ED Prescriptions None Sign Off Checklist Clinical Impression: Complete ED Disposition: Complete - George Martinez MD 06/11/22 1747 * ED Triage Notes - Mayra Lawler RN - 06/11/2022 10:31 AM EDT Pt presents with complaints of left lower quadrant abdominal pain, nausea, and vomiting that started yesterday. Pt states that it feels similar to her previous pancreatitis flares. documented in this encounter Plan of Treatment Not on file documented as of this encounter Procedures Procedure Name Priority Date/Time Associated Diagnosis Comments CBC WITH AUTO DIFFERENTIAL STAT 06/11/2022 12:20 PM EDT TEST QUALITATIVE PLASMA STAT 06/11/2022 12:20 PM EDT MAGNESIUM, PLASMA STAT 06/11/2022 12: 20 PM EDT LIPASE, PLASMA STAT 06/11/2022 12:20 PM EDT COMPREHENSIVE METABOLIC PANEL, PLASMA STAT 06/11/2022 12:20 PM EDT URINALYSIS MICROSCOPIC FOR UA REFLEX STAT 06/11/2022 11:51 AM EDT URINALYSIS WITH REFLEX MICROSCOPIC STAT 06/11/2022 11:51 AM EDT documented in this encounter Results * hCG qualitative (06/11/2022 12:20 PM EDT) Pathologist [facility] Test Negative Negative 06/11/2022 12:52 PM EDT [facility] Blood Venous blood specimen / Unknown Venipuncture / Unknown 06/11/2022 12:20 PM EDT 06/11/2022 12:27 PM EDT Narrative [facility] - 06/11/2022 12:52 PM EDT Reference Range: Males and non- females: Negative. George Martinez MD LAB BLOOD ORDERABLES Final Result Performing Organization Address City/[facility]/ZIP Co de Phone Number [facility] [address] [place] [address] * (ABNORMAL) Lipase (06/11/2022 12:20 PM EDT) Lipase, Plasma 112(H) 19 - 63 U/L 06/11/2022 12:52 PM EDT [facility] Blood Venous blood specimen / Unknown Venipuncture / Unknown 06/11/2022 12:20 PM EDT 06/11/2022 12:27 PM EDT George Martinez MD LAB BLOOD ORDERABLES Final Result [facility] [address] [place] [address] * Magnesium (06/11/2022 12:20 PM EDT) Magnesium, Plasma 2.1 1.9 - 2.4 mg/dL 06/11/2022 12:52 PM EDT [facility] Blood Venous blood specimen / Unknown Venipuncture / Unknown 06/11/2022 12:20 PM EDT 06/11/2022 12:27 PM EDT George Martinez MD LAB BLOOD ORDERABLES Final Result [facility] [address] [place] [address] * (ABNORMAL) CMP (06/11/2022 12:20 PM EDT) [facility] Glucose, Plasma 99 74 - 99 mg/dL 06/11/2022 12:52 PM EDT [facility] BUN, Plasma 12 7 - 21 mg/dL 06/11/2022 12:52 PM EDT [facility] Creatinine, Plasma 0.63 0.60 - 1.10 mg/dL 06/11/2022 12:52 PM EDT [facility] BUN/Creatinine Ratio 06/11/2022 12:52 PM EDT [facility] Sodium, Plasma 141 136 - 145 mmol/L 06/11/2022 12:52 PM EDT [facility] Potassium, Plasma 4.2 3.7 - 4.8 mmol/L 06/11/2022 12:52 PM EDT [facility] Chloride, Plasma 106 97 - 107 mmol/L 06/11/2022 12:52 PM EDT [facility] CO2, Plasma 22 22 - 29 mmol/L 06/11/2022 12:52 PM EDT [facility] Anion Gap 13 6 - 16 mmol/L 06/11/2022 12:52 PM EDT [facility] Total Calcium, Plasma 9.7 8.9 - 10.2 mg/dL 06/11/2022 12:52 PM EDT [facility] Total Protein 8.0(H) 6.3 - 7.9 g/dL 06/11/2022 12:52 PM EDT [facility] Albumin, Plasma 4.9 3.5 - 5.2 g/dL 06/11/2022 12:52 PM EDT [facility] AST, Plasma 28 11 - 32 U/L 06/11/2022 12:52 PM EDT [facility] ALT, Plasma 27 8 - 33 U/L 06/11/2022 12:52 PM EDT [facility] Alkaline Phosphatase, Plasma 103 35 - 104 U/L 06/11/2022 12:52 PM EDT [facility] Total Bilirubin, Plasma 0.3 0.2 - 1.1 mg/dL 06/11/2022 12:52 PM EDT [facility] eGFRcr 118.8 mL/min/1.7 3m*2 06/11/2022 12:52 PM EDT [facility] Comment: Reported eGFRcr in mL/min/1.73m2 is based the CKD-EPI 202 equation that does not use a race coefficient. Effective 09/18/21 our laboratory changed the eGFR calculation to the CKD-EPI 2021 equation from the previously reported eGFR, based on the MDRD equation. ??For comparisons between the two equations, please see laboratory website: ??[email or web address] Blood Venous blood specimen / Unknown Venipuncture / Unknown 06/11/2022 12:20 PM EDT 06/11/2022 12:27 PM EDT us George Martinez MD LAB BLOOD ORDERABLES Final Result [facility] [address] [place] [address] * (ABNORMAL) CBC w/diff (06/11/2022 12:20 PM EDT) WBC Count 6.13 3.70 - 10.30 10*3/uL LAB HEMATOLOGY METHOD 06/11/2022 12:30 PM EDT [facility] RBC Count 5.04 3.90 - 5.20 10*6/uL LAB HEMATOLOGY METHOD 06/11/2022 12:30 PM EDT [facility] HGB 13.7 11.2 - 15.7 g/dL LAB HEMATOLOGY METHOD 06/11/2022 12:30 PM EDT [facility] HCT 42.0 34.0 - 45.0 % LAB HEMATOLOGY METHOD 06/11/2022 12:30 PM EDT [facility] Platelet Count 283 155 - 369 10*3/uL LAB HEMATOLOGY METHOD 06/11/2022 12:30 PM EDT [facility] MCV 83 79 - 98 fL LAB HEMATOLOGY METHOD 06/11/2022 12:30 PM EDT [facility] MCH 27.2 26.0 - 32.0 pg LAB HEMATOLOGY METHOD 06/11/2022 12:30 PM EDT [facility] MCHC 32.6 30.7 - 35.5 g/dL LAB HEMATOLOGY METHOD 06/11/2022 12:30 PM EDT [facility] RDW 15.2(H) 11.5 - 14.5 % LAB HEMATOLOGY METHOD 06/11/2022 12:30 PM EDT [facility] MPV 9.6 8.8 - 12.5 fL LAB HEMATOLOGY METHOD 06/11/2022 12:30 PM EDT [facility] nRBC 0.0 <=0.0 per 100 WBCs LAB HEMATOLOGY METHOD 06/11/2022 12:30 PM EDT [facility] Differential Type Automated LAB HEMATOLOGY METHOD 06/11/2022 12:30 PM EDT [facility] Neutrophils % 61.0 % LAB HEMATOLOGY METHOD 06/11/2022 12:30 PM EDT [facility] Lymphocytes % 33.0 % LAB HEMATOLOGY METHOD 06/11/2022 12:30 PM EDT [facility] Monocytes % 5.0 % LAB HEMATOLOGY METHOD 06/11/2022 12:30 PM EDT [facility] Eosinophils % 0.0 % LAB HEMATOLOGY METHOD 06/11/2022 12:30 PM EDT [facility] Basophils % 1.0 % LAB HEMATOLOGY METHOD 06/11/2022 12:30 PM EDT [facility] Immature Granulocytes % 0.0 % LAB HEMATOLOGY METHOD 06/11/2022 12:30 PM EDT [facility] Neutrophils Absolute 3.74 1.60 - 6.10 10*3/uL LAB HEMATOLOGY METHOD 06/11/2022 12:30 PM EDT [facility] Lymphocytes Absolute 1.99 1.20 - 3.90 10*3/uL LAB HEMATOLOGY METHOD 06/11/2022 12:30 PM EDT [facility] Monocytes Absolute 0.30 0.30 - 0.90 10*3/uL LAB HEMATOLOGY METHOD 06/11/2022 12:30 PM EDT [facility] Eosinophils Absolute 0.01 0.00 - 0.50 10*3/uL LAB HEMATOLOGY METHOD 06/11/2022 12:30 PM EDT [facility] Basophils Absolute 0.07 0.00 - 0.10 10*3/uL LAB HEMATOLOGY METHOD 06/11/2022 12:30 PM EDT [facility] Immature Granulocytes Absolute 0.02 0.00 - 0.06 10*3/uL LAB HEMATOLOGY METHOD 06/11/2022 12:30 PM EDT [facility] Blood Venous blood specimen / Unknown Venipuncture / Unknown 06/11/2022 12:20 PM EDT 06/11/2022 12:27 PM EDT Narrative [facility] - 06/11/2022 12:30 PM EDT Therapeutic decision making should be based on absolute values, rather than percentages. George Martinez MD LAB BLOOD ORDERABLES Final Result Performing Organization Address City/[facility] Co de Phone Number [facility] [address] [place] [address] * Urinalysis Microscopic Examination (06/11/2022 11:51 AM EDT) Urine Urine specimen obtained by clean catch procedure / Unknown Non-blood Collection / Unknown 06/11/2022 11:51 AM EDT 06/11/2022 12:00 PM EDT George Martinez MD LAB URINE ORDERABLES Final Result Performing Organization Address City/[facility] Co de Phone Number [facility] [address] [place] [address] * (ABNORMAL) Urinalysis with reflex microscopic (06/11/2022 11:51 AM EDT) Color, Urine Yellow LAB URINALYSIS - AUTOMATED METHOD 06/11/2022 12:24 PM EDT [facility] Clarity, Urine Clear LAB URINALYSIS - AUTOMATED METHOD 06/11/2022 12:24 PM EDT [facility] Spec [place], Urine 1.012 <=1.005 to >=1.030 LAB URINALYSIS - AUTOMATED METHOD 06/11/2022 12:24 PM EDT [facility] pH, Urine 6.0 4.5 to 8 LAB URINALYSIS - AUTOMATED METHOD 06/11/2022 12:24 PM EDT [facility] Protein, Urine Negative Negative mg/dL LAB URINALYSIS - AUTOMATED METHOD 06/11/2022 12:24 PM EDT [facility] Glucose, Urine Negative Negative mg/dL LAB URINALYSIS - AUTOMATED METHOD 06/11/2022 12:24 PM EDT [facility] Ketones, Urine Negative Negative mg/dL LAB URINALYSIS - AUTOMATED METHOD 06/11/2022 12:24 PM EDT [facility] Blood, Urine Negative Negative LAB URINALYSIS - AUTOMATED METHOD 06/11/2022 12:24 PM EDT [facility] Bilirubin, Urine Negative Negative LAB URINALYSIS - AUTOMATED METHOD 06/11/2022 12:24 PM EDT [facility] Urobilinogen, Urine 0.2 0.2 to 1.0 mg/dL LAB URINALYSIS - AUTOMATED METHOD 06/11/2022 12:24 PM EDT [facility] Leukocytes, Urine Trace(A) Negative LAB URINALYSIS - AUTOMATED METHOD 06/11/2022 12:24 PM EDT [facility] Nitrite, Urine Negative Negative LAB URINALYSIS - AUTOMATED METHOD 06/11/2022 12:24 PM EDT [facility] RBC, Urine <1 0 to 3 /HPF 06/11/2022 12:24 PM EDT [facility] Comment:This result was prev iously suppressed from the chart. WBC, Urine 6 - 10(A) 0 to 5 /HPF 06/11/2022 12:24 PM EDT [facility] Comment:This result was prev iously suppressed from the chart. Squamous Epithelial Cells 0 - 5 0 to 5 /HPF 06/11/2022 12:24 PM EDT [facility] Comment:This result was prev iously suppressed from the chart. Hyaline Casts 0 - 8 0 to 8 /LPF 06/11/2022 12:24 PM EDT [facility] Comment:This result was prev iously suppressed from the chart. Bacteria, Urine Negative Negative 06/11/2022 12:24 PM EDT [facility] Comment:This result was prev iously suppressed from the chart. Urine Urine specimen obtained by clean catch procedure / Unknown Non-blood Collection / Unknown 06/11/2022 11:51 AM EDT 06/11/2022 12:00 PM EDT [facility] - 06/11/2022 12:24 PM EDT Performed by manual method George Martinez MD LAB URINE ORDERABLES Final Result [facility] [address] [place] [address] documented in this encounter Visit Diagnoses Diagnosis Left upper quadrant abdominal pain- Primary documented in this encounter Administered Medications Inactive Administered Medications - up to 3 most recent administrations Medication Order MAR Action Action Date Dose Rate Site morphine PF 4 mg 4 mg, Intravenous, Once, 1 dose, On Thu06/11/22 at 1215, STAT Given 06/11/2022 12:40 PM EDT 4 mg morphine PF 4 mg 4 mg, Intravenous, Once, 1 dose, On Thu06/11/22 at 1355, STAT Given 06/11/2022 2:13 PM EDT 4 mg promethazine (Phenergan) injection 12.5 mg 12.5 mg, Intravenous, Once, 1 dose, On Thu06/11/22 at 1215, STAT Given 06/11/2022 12:40 PM EDT 12.5 mg documented in this encounter Active and Recently Administered Medications Times are shown in EDT. Scheduled Medication Order 06/09/2022 06/10/2022 06/11/2022 morphine PF 4 mg (COMPLETED) 4 mg, Intravenous, Once, 1 dose, On Thu06/11/22 at 1215, STAT 1240 (Given - Provid er: Veda Bailey RN) morphine PF 4 mg (COMPLETED) 4 mg, Intravenous, Once, 1 dose, On Thu06/11/22 at 1355, STAT 1413 (Given - Provid er: Veda Bailey RN) promethazine (Phenergan) injection 12.5 mg (COMPLETED) 12.5 mg, Intravenous, Once, 1 dose, On Thu06/11/22 at 1215, STAT 1240 (Given - Provid er: Veda Bailey RN) documented in this encounter Additional Health Concerns Assessment Noted Time A fall risk assessment has been complete d for the patient 11/21/2020 2:30 PM EDT documented as of this encounter Care Teams Brand Advisor Relationship Specialty Start Date End Date Elmo Escobar MD PCP - General 10/18/20 01/05/23 documented as of this encounter
--- OUTSIDE RECORDS SUMMARY | 2024-02-03 15:22 | XMS_ITS | Encounter Summary ---
Author Organization Healthcare Address [address] [place] [address] Care Team Providers Care Vp Medical Name Role Phone Elmo Escobar MD Primary Care Provider [phone] Reason for Visit * Reason Comments Vomiting Abdominal Pain Encounter Details Date Type Department Care Team (Late st Contact Info) Description 06/19/2022 12:59 PM EDT - 06/19/2022 6:06 PM EDT Emergency [facility] Emergency Department [address] [place] [address] George Martinez MD [address] [place] [address] Lester Meredith MD [address] [place] [address] Acute pancreatitis without infection or necrosis, unspecified pancreatitis type (Primary Dx) Discharge Disposition: [...] first t caleb in the morning (EYE-RN OUTPATIENT SURGERY) to steady your nerves or to get [...] Sign Reading Time Taken Comments Blood Pressure 147/93 06/19/2022 6:05 PM EDT Pulse 82 06/19/2022 6:05 PM EDT Temperature 36.7 ??C (98 ??F) 06/19/2022 11:41 AM EDT Respiratory Rate 18 06/19/2022 11:41 AM EDT Oxygen Saturation 97% 06/19/2022 6:05 PM EDT Inhaled Oxygen Concentration - - Weight 110 kg (241 lb 10 oz) 06/19/2022 11:41 AM EDT Height - - Body Mass Index 40.21 06/14/2022 12:29 PM EDT documented in this encounter Discharge Instructions * Discharge Instructions* Tiffany Lares MD - 06/19/2022 5:53 PM EDT Take medicines as prescribed for your symptoms. Please return to ED with new or worsening symptoms.Please follow up with primary care provider next week at your scheduled appointment. Please keep appointment with GI. * Attachments The following attachments cannot be sent through Care Everywhere. * Acute Pancreatitis, Discharge Instructions for (Norwegian) * Pancreatitis, Understanding (Norwegian) documented in this encounter Medications at Time of Discharge oxyCODONE (Roxicodone) 5 MG immediate release tablet Take 2 tablets (10 mg total) by mouth every 6 (six) hours if needed for severe pain (pain) for up to 3 days. 12 tablet 06/19/2022 06/23/19 23 acetaminophen (Tylenol) 500 MG tablet Take [...] needed for severe pain. 07/21/19 23 pancrelipase, Hgg-Ndio-Gocc, (Creon) [id number] units capsule Take 2 capsules by mouth [...] Miscellaneous Notes * ED Provider Notes - Tiffany Lares MD - 06/19/2022 11:37 AM EDT - HPI Chief Complaint Patient presents with Vomiting Abdominal Pain 36 year old female with history of chronic pancreatitis, gastritis presenting for evaluation of abdominal pain. Patient reports that she ate spaghetti last night then began having epigastric abdominal pain, multiple episodes of nonbloody emesis. She reports slight associated SOA secondary to the pain, no CP. She endorses diarrhea. She reports that she attempted to treat with zofran last night, phenergan this morning without relief. She reports that she ran out of oxycodone a few days ago. She reports that she has not drank in a few months. She has been taking ibuprofen multiple times a day. She had CT at her most recent visit 06/14 without findings concerning for pancreatitis. She finished her last menstrual period yesterday, denies pelvic pain She has follow up with GI 07/14. Her most recent EGD 2/24 showed patchy areas in the stomach with erosion. She has follow up 07/07 with OBGYN for small ovarian cyst seen on most recent CT 06/14. She hasfollowup with her PCP Saturday 06/24. Pertinent surgical history of CCY. No data recorded Patient History Past Medical [...] of Systems Constitutional: Negative for fever. Respiratory: Positive for shortness of breath. Cardiovascular: Negative for chest pain. Gastrointestinal: Positive for abdominal pain, diarrhea, nausea and vomiting. Genitourinary: Negative for dysuria and vaginal bleeding. Skin: Negative for color change. Psychiatric/Behavioral: Negative for confusion. Physical Exam ED Triage Vitals [06/19/22 1141] Temp Heart Rate Resp BP 36.7 ??C (98 ??F) 102 18 (!) 154/97 SpO2 Temp Source Heart Rate Source Patient Position 99 % Oral -- -- BP Location FiO2 (%) -- -- Physical Exam Vitals reviewed. HENT: Head: Normocephalic and atraumatic. Cardiovascular: Rate and Rhythm: Normal rate. Pulmonary: Effort: Pulmonary effort is normal. Abdominal: General: Abdomen is protuberant. Palpations: Abdomen is soft. Tenderness: There is abdominal tenderness in the epigastric area. There is no guarding or rebound. Skin: General: Skin is warm. Neurological: Mental Status: She is alert and oriented to person, place, and time. Psychiatric: Mood and Affect: Mood normal. ED Course & MDM Clinical Impressions as of 06/19/22 1800 Acute pancreatitis without infection or necrosis, unspecified pancreatitis type ED Disposition: Medical Decision Making 36 year old female with history and presentation as above. Hemodynamically stable though borderlinetachycardic. In no acute distress on exam. Abdomen soft, nondistended with epigastric tenderness. No lower abdominal tenderness. Differential diagnoses include but not limited to pancreatitis, gastritis, peptic ulcer disease, ACS, bowel obstruction, ectopic , UTI Patient treated with Zofran, morphine, GI cocktail, Dilaudid, IV fluids Was advised to discontinue ibuprofen, acidic foods such as citrus, tomato and these will all worsenher symptoms. CBC without leukocytosis or anemia, CMP nonactionable, test negative, troponin less than 6, lactate 1.8, UA without evidence of infection. Lipase elevated at 246 with evidence of acute on chronic pancreatitis. Patient had significant improvement in pain and was able to by mouth in the ED after discussion she prefers discharge at this time. She was advised he for palatal he with her primary care provider in just a few days, she for follow-up with GI next month. Return to ED with any new or worsening symptoms. She was given a prescription of oxycodone for pain and refill of phenergan. Amount and/or Complexity of Data Reviewed Independent Historian: Details: Parent at bedside provides additional history External Data Reviewed: notes. Details: Notes from EGD reviewed as noted above 04/18 Labs: ordered. Risk OTC drugs. Prescription drug management. Risk Details: It should be noted that her chronic conditions includes gastritis, chronic pancreatitis, which currently is not at goal therapy. This complicates her clinical picture because it may be exacerbating symptoms Considered but did not obtain CT abdomen pelvis given the patient had recent CT abdomen pelvis 5 days ago without findings concerning for pancreatitis or other findings apart from likely right ovarian cyst 3.4 cm likely physiologic without significant change in the characteristics of her pain ED Prescriptions None Sign Off Checklist Clinical Impression: Complete ED Disposition: Complete - Tiffany Lares MD Resident 06/19/[id number] Cosigned by George Martinez MD at 06/20/2022 11:15 AM EDT Associated attestation - George Martinez MD - 06/20/2022 11:15 AM EDT I saw and evaluated the patient with the resident/fellow. I discussed the case with the resident/fellow and agree with the findings and plan as documented. * ED Triage Notes - Lisa Galloway RN - 06/19/2022 11:37 AM EDT Patient presents with abdominal pain and vomiting that started last night. Patient states she has chronic pancreatitis and was seen here on Thursday but her symptoms have returned. documented in this encounter Plan of Treatment Not on file documented as of this encounter Procedures Procedure Name Priority Date/Time Associated Diagnosis Comments URINALYSIS WITH REFLEX MICROSCOPIC STAT 06/19/2022 3:27 PM EDT TROPONIN T, HIGH SENSITIVITY, 0 HOUR, PLASMA, REFLEX TO 2 HOUR STAT 06/19/2022 2:42 PM EDT LACTATE, VENOUS STAT 06/19/2022 2:42 PM EDT CBC WITH AUTO DIFFERENTIAL STAT 06/19/2022 2:42 PM EDT TEST QUALITATIVE PLASMA STAT 06/19/2022 2:42 PM EDT LIPASE, PLASMA STAT 06/19/2022 2:42 PM EDT COMPREHENSIVE METABOLIC PANEL, PLASMA STAT 06/19/2022 2:42 PM EDT documented in this encounter Results * Urinalysis with reflex microscopic (06/19/2022 3:27 PM EDT) Color, Urine Yellow LAB URINALYSIS - AUTOMATED METHOD 06/19/2022 3:42 PM EDT [facility] Clarity, Urine Clear LAB URINALYSIS - AUTOMATED METHOD 06/19/2022 3:42 PM EDT [facility] Spec [place], Urine 1.008 <=1.005 to >=1.030 LAB URINALYSIS - AUTOMATED METHOD 06/19/2022 3:42 PM EDT [facility] pH, Urine 7.0 4.5 to 8 LAB URINALYSIS - AUTOMATED METHOD 06/19/2022 3:42 PM EDT [facility] Protein, Urine Negative Negative mg/dL LAB URINALYSIS - AUTOMATED METHOD 06/19/2022 3:42 PM EDT [facility] Glucose, Urine Negative Negative mg/dL LAB URINALYSIS - AUTOMATED METHOD 06/19/2022 3:42 PM EDT [facility] Ketones, Urine Negative Negative mg/dL LAB URINALYSIS - AUTOMATED METHOD 06/19/2022 3:42 PM EDT [facility] Blood, Urine Negative Negative LAB URINALYSIS - AUTOMATED METHOD 06/19/2022 3:42 PM EDT [facility] Bilirubin, Urine Negative Negative LAB URINALYSIS - AUTOMATED METHOD 06/19/2022 3:42 PM EDT [facility] Urobilinogen, Urine 0.2 0.2 to 1.0 mg/dL LAB URINALYSIS - AUTOMATED METHOD 06/19/2022 3:42 PM EDT [facility] Leukocytes, Urine Negative Negative LAB URINALYSIS - AUTOMATED METHOD 06/19/2022 3:42 PM EDT [facility] Nitrite, Urine Negative Negative LAB URINALYSIS - AUTOMATED METHOD 06/19/2022 3:42 PM EDT [facility] Urine Urine specimen obtained by clean catch procedure / Unknown Non-blood Collection / Unknown 06/19/2022 3:27 PM EDT 06/19/2022 3:34 PM EDT us George Martinez MD LAB URINE ORDERABLES Final Result [facility] [address] [place] [address] * hCG qualitative (06/19/2022 2:42 PM EDT) Test Negative Negative 06/19/2022 3:29 PM EDT [facility] Blood Venous blood specimen / Unknown Venipuncture / Unknown 06/19/2022 2:42 PM EDT 06/19/2022 2:50 PM EDT Narrative [facility] - 06/19/2022 3:29 PM EDT Reference Range: Males and non- females: Negative. George Martinez MD LAB BLOOD ORDERABLES Final Result Performing Organization Address City/[facility]/ZIP Co de Phone Number [facility] [address] [place] [address] * Troponin now and 120 min (06/19/2022 2:42 PM EDT) Troponin T, High Sensitivity, 0 Hour <6 <14 ng/L 06/19/2022 3:29 PM EDT [facility] Blood Venous blood specimen / Unknown Venipuncture / Unknown 06/19/2022 2:42 PM EDT 06/19/2022 2:50 PM EDT George Martinez MD LAB BLOOD ORDERABLES Final Result Performing Organization Address [facility] Co de Phone Number [facility] [address] [place] [address] * (ABNORMAL) CBC w/diff (06/19/2022 2:42 PM EDT) WBC Count 8.63 3.70 - 10.30 10*3/uL LAB HEMATOLOGY METHOD 06/19/2022 2:53 PM EDT [facility] RBC Count 4.42 3.90 - 5.20 10*6/uL LAB HEMATOLOGY METHOD 06/19/2022 2:53 PM EDT [facility] HGB 12.1 11.2 - 15.7 g/dL LAB HEMATOLOGY METHOD 06/19/2022 2:53 PM EDT [facility] HCT 36.4 34.0 - 45.0 % LAB HEMATOLOGY METHOD 06/19/2022 2:53 PM EDT [facility] Platelet Count 292 155 - 369 10*3/uL LAB HEMATOLOGY METHOD 06/19/2022 2:53 PM EDT [facility] MCV 82 79 - 98 fL LAB HEMATOLOGY METHOD 06/19/2022 2:53 PM EDT [facility] MCH 27.4 26.0 - 32.0 pg LAB HEMATOLOGY METHOD 06/19/2022 2:53 PM EDT [facility] MCHC 33.2 30.7 - 35.5 g/dL LAB HEMATOLOGY METHOD 06/19/2022 2:53 PM EDT [facility] RDW 14.7(H) 11.5 - 14.5 % LAB HEMATOLOGY METHOD 06/19/2022 2:53 PM EDT [facility] MPV 9.1 8.8 - 12.5 fL LAB HEMATOLOGY METHOD 06/19/2022 2:53 PM EDT [facility] nRBC 0.0 <=0.0 per 100 WBCs LAB HEMATOLOGY METHOD 06/19/2022 2:53 PM EDT [facility] Differential Type Automated LAB HEMATOLOGY METHOD 06/19/2022 2:53 PM EDT [facility] Neutrophils % 74.0 % LAB HEMATOLOGY METHOD 06/19/2022 2:53 PM EDT [facility] Lymphocytes % 20.0 % LAB HEMATOLOGY METHOD 06/19/2022 2:53 PM EDT [facility] Monocytes % 4.0 % LAB HEMATOLOGY METHOD 06/19/2022 2:53 PM EDT [facility] Eosinophils % 0.0 % LAB HEMATOLOGY METHOD 06/19/2022 2:53 PM EDT [facility] Basophils % 1.0 % LAB HEMATOLOGY METHOD 06/19/2022 2:53 PM EDT [facility] Immature Granulocytes % 1.0 % LAB HEMATOLOGY METHOD 06/19/2022 2:53 PM EDT [facility] Neutrophils Absolute 6.43(H) 1.60 - 6.10 10*3/uL LAB HEMATOLOGY METHOD 06/19/2022 2:53 PM EDT [facility] Lymphocytes Absolute 1.74 1.20 - 3.90 10*3/uL LAB HEMATOLOGY METHOD 06/19/2022 2:53 PM EDT [facility] Monocytes Absolute 0.32 0.30 - 0.90 10*3/uL LAB HEMATOLOGY METHOD 06/19/2022 2:53 PM EDT [facility] Eosinophils Absolute 0.00 0.00 - 0.50 10*3/uL LAB HEMATOLOGY METHOD 06/19/2022 2:53 PM EDT [facility] Basophils Absolute 0.05 0.00 - 0.10 10*3/uL LAB HEMATOLOGY METHOD 06/19/2022 2:53 PM EDT [facility] Immature Granulocytes Absolute 0.09(H) 0.00 - 0.06 10*3/uL LAB HEMATOLOGY METHOD 06/19/2022 2:53 PM EDT [facility] Blood Venous blood specimen / Unknown Venipuncture / Unknown 06/19/2022 2:42 PM EDT 06/19/2022 2:50 PM EDT Narrative [facility] - 06/19/2022 2:53 PM EDT Therapeutic decision making should be based on absolute values, rather than percentages. George Martinez MD LAB BLOOD ORDERABLES Final Result Performing Organization Address City/[facility] Co de Phone Number [facility] [address] [place] [address] * Lactic acid, venous (06/19/2022 2:42 PM EDT) Pathologist [facility] Lactate, Venous, Whole Blood 1.8 0.5 - 2.2 mmol/L LAB HEMATOLOGY METHOD 06/19/2022 3:33 PM EDT [facility] Blood Venous blood specimen / Unknown Venipuncture / Unknown 06/19/2022 2:42 PM EDT 06/19/2022 2:49 PM EDT George Martinez MD LAB BLOOD ORDERABLES Final Result Performing Organization Address [facility] Co de Phone Number [facility] [address] [place] [address] * (ABNORMAL) Lipase (06/19/2022 2:42 PM EDT) Lipase, Plasma 246(H) 19 - 63 U/L 06/19/2022 3:29 PM EDT [facility] Blood Venous blood specimen / Unknown Venipuncture / Unknown 06/19/2022 2:42 PM EDT 06/19/2022 2:50 PM EDT George Martinez MD LAB BLOOD ORDERABLES Final Result Performing Organization Address City/[facility] Co de Phone Number [facility] [address] [place] [address] * (ABNORMAL) CMP (06/19/2022 2:42 PM EDT) Glucose, Plasma 95 74 - 99 mg/dL 06/19/2022 3:29 PM EDT [facility] BUN, Plasma 8 7 - 21 mg/dL 06/19/2022 3:29 PM EDT [facility] Creatinine, Plasma 0.49(L) 0.60 - 1.10 mg/dL 06/19/2022 3:29 PM EDT [facility] BUN/Creatinine Ratio 16 06/19/2022 3:29 PM EDT [facility] Sodium, Plasma 139 136 - 145 mmol/L 06/19/2022 3:29 PM EDT [facility] Potassium, Plasma 4.2 3.7 - 4.8 mmol/L 06/19/2022 3:29 PM EDT [facility] Chloride, Plasma 102 97 - 107 mmol/L 06/19/2022 3:29 PM EDT [facility] CO2, Plasma 24 22 - 29 mmol/L 06/19/2022 3:29 PM EDT [facility] Anion Gap 13 6 - 16 mmol/L 06/19/2022 3:29 PM EDT [facility] Total Calcium, Plasma 9.4 8.9 - 10.2 mg/dL 06/19/2022 3:29 PM EDT [facility] Total Protein 7.0 6.3 - 7.9 g/dL 06/19/2022 3:29 PM EDT [facility] Albumin, Plasma 4.4 3.5 - 5.2 g/dL 06/19/2022 3:29 PM EDT [facility] AST, Plasma 30 11 - 32 U/L 06/19/2022 3:29 PM EDT [facility] ALT, Plasma 79(H) 8 - 33 U/L 06/19/2022 3:29 PM EDT [facility] Alkaline Phosphatase, Plasma 104 35 - 104 U/L 06/19/2022 3:29 PM EDT [facility] Total Bilirubin, Plasma 0.3 0.2 - 1.1 mg/dL 06/19/2022 3:29 PM EDT [facility] eGFRcr 126.2 mL/min/1.7 3m*2 06/19/2022 3:29 PM EDT [facility] Comment: Reported eGFRcr in mL/min/1.73m2 is based the CKD-EPI 2021 equation that does not use a race coefficient. Effective 09/18/21 our laboratory changed the eGFR calculation to the CKD-EPI 2021 equation from the previously reported eGFR, based on the MDRD equation. ??For comparisons between the two equations, please see laboratory website: ??[email or web address] Blood Venous blood specimen / Unknown Venipuncture / Unknown 06/19/2022 2:42 PM EDT 06/19/2022 2:50 PM EDT us George Martinez MD LAB BLOOD ORDERABLES Final Result [facility] [address] [place] [id number] documented in this encounter Visit Diagnoses Diagnosis Acute pancreatitis without infection or necrosis, unspecified pancreatitis type- Primary documented in this encounter Administered Medications Inactive Administered Medications - up to 3 most recent administrations Medication Order MAR Action Action Date Dose Rate Site gi cocktail oral solution 30 mL 30 mL, Oral, Once, 1 dose, On Annabel 06/19/22 at 1345, STAT Given 06/19/2022 2:21 PM EDT 30 mL HYDROmorphone (Dilaudid) injection 1 mg 1 mg, Intravenous, Once, 1 dose, On Annabel 06/19/22 at 1535, STAT Given 06/19/2022 3:58 PM EDT 1 mg lactated Ringer's infusion 1,000 mL 1,000 mL, Intravenous, Once, 1 dose, On Annabel 06/19/22 at 1450, STAT New Bag 06/19/2022 3:22 PM EDT 1,000 mL morphine PF 4 mg 4 mg, Intravenous, Once, 1 dose, On Annabel 06/19/22 at 1345, STAT Given 06/19/2022 2:42 PM EDT 4 mg ondansetron (Zofran) injection 4 mg 4 mg, Intravenous, Once, 1 dose, On Annabel 06/19/22 at 1345, STAT Given 06/19/2022 2:43 PM EDT 4 mg promethazine (Phenergan) injection 12.5 mg 12.5 mg, Intravenous, Once, 1 dose, On Annabel 06/19/22 at 1535, STAT Given 06/19/2022 3:58 PM EDT 12.5 mg documented in this encounter Active and Recently Administered Medications Times are shown in EDT. Scheduled Medication Order 06/17/2022 06/18/2022 06/19/2022 gi cocktail oral solution 30 mL (COMPLETED) 30 mL, Oral, Once, 1 dose, On Annabel 06/19/22 at 1345, STAT 1421 (Given - Provid er: Sherrill Angel RN) HYDROmorphone (Dilaudid) injection 1 mg (COMPLETED) 1 mg, Intravenous, Once, 1 dose, On Annabel 06/19/22 at 1535, STAT 1558 (Given - Provid er: Sherrill Angel RN) lactated Ringer's infusion 1,000 mL (COMPLETED) 1,000 mL, Intravenous, Once, 1 dose, On Annabel 06/19/22 at 1450, STAT 1522 (New Bag - Prov ider: Sherrill Angel RN)1715 (Stopped - Provider: Sherrill Angel RN) morphine PF 4 mg (COMPLETED) 4 mg, Intravenous, Once, 1 dose, On Annabel 06/19/22 at 1345, STAT 1442 (Given - Provid er: Sherrill Angel RN) ondansetron (Zofran) injection 4 mg (COMPLETED) 4 mg, Intravenous, Once, 1 dose, On Annabel 06/19/22 at 1345, STAT 1443 (Given - Provid er: Sherrill Angel RN) promethazine (Phenergan) injection 12.5 mg (COMPLETED) 12.5 mg, Intravenous, Once, 1 dose, On Annabel 06/19/22 at 1535, STAT 1558 (Given - Provid er: Sherrill Angel RN) documented in this encounter Additional Health Concerns Assessment Noted Time A fall risk assessment has been complete d for the patient 11/21/2020 2:30 PM EDT documented as of this encounter Care Teams Vp Medical Relationship Specialty Start Date End Date Elmo Escobar MD PCP - General 10/18/20 01/05/23 documented as of this encounter
--- OUTSIDE RECORDS SUMMARY | 2024-02-03 15:22 | XMS_ITS | Encounter Summary ---
Author Organization Healthcare Address [address] [place] [address] Care Team Providers Care Hourly Associate Name Role Phone Elmo Escobar MD Primary Care Provider [phone] Reason for Visit * Reason Comments Abdominal Pain * Auth/Cert (Routine) Specialty Diagnoses / Procedures Referred By Contac t Referred To Contact Diagnoses Abdominal pain Alessia Joe MD [address] [place] [address] Phone: tel: fax: [facility] [address] [place] [address] Phone: tel: Referral ID Status Reason Start Date Expiration Date Visits Re quested Visits Authorized [id number] 1 1 Encounter Details Date Type Department Care Team (Latest Contact Info) Description 03/22/2022 4:32 PM EST - 03/26/2022 6:15 PM [facility] Hospital Encounter [facility] [address] [place] [address] Alessia Joe MD [address] [place] [address] Acute abdominal pain (Primary Dx); Nausea and vomiting, [...] drink first t caleb in the 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) to steady your nerves or to [...] PM EST documented as of this encounter Last Filed Vital Signs Vital Sign Reading Time Taken Comments Blood Pressure 149/90 03/27/2022 2:08 AM EST Pulse 94 03/27/2022 2:08 AM EST Temperature 37.1 ??C (98.7 ??F) 03/27/2022 2:08 AM ES T Respiratory Rate 18 03/26/2022 7:20 AM EST Oxygen Saturation 92% 03/27/2022 2:08 AM EST Inhaled Oxygen Concentration - - Weight 103 kg (226 lb 6.6 oz) 03/22/2022 4:57 PM EST Height 165.1 cm (5' 5 ) 03/22/2022 4:57 PM EST Body Mass Index 37.68 03/22/2022 4:57 PM EST documented in this encounter Medications at [...] needed for severe pain. 07/21/19 23 pancrelipase, Wit-Mufl-Giyl, (Creon) [id number] units capsule Take 2 capsules by mouth [...] encounter Miscellaneous Notes * Discharge Summary - Shante English MD - 03/26/2022 4:16 PM EST Hospitalization Admit Date/Time: 03/22/2022 4:32 PM Admitting Attending: Alessia Joe Discharge Date: 03/26/2022 Discharge Attending Physician: Alessia Joe Md PCP name and Address: Elmo Escobar MD [address] [place] [address] / [place] [address] Referring provider name and address: No referring provider defined for this encounter. Chief Concern, Brief History of Present Illness, and Hospital Course Lila Mcnally is a 36 y.o. female with a PMH of GERD, pancreatitis, HTN, fibromyalgia, anxiety, depression who presented on 03/20 with worsening epigastric abdominal pain. Patient has a history of chronic pancreatitis with multiple ED visits for acute exacerbations of this pain. She was admitted for possible pancreatitis flare. Despite multimodal pain control patient repeatedly asked for increases to her opioid regimen. She was initially refusing offers of toradol and ketamine saying that those medications do not work for her. High concern for opioid hyperalgesia worsening patient's abdominal pain so increases to opioids were not made. Patient was counseled on reasons for not escalating op ioid management Acute on chronic abdominal pain likely due to functional abdominal pain complicated by opioid hyperalgesia in the setting of nursing home opiate use - Patient has extensive history of chronic abdominal pain requiring multiple ED visits over the last year - Patient reports that she has had removal of her gallbladder making choledocholithiasis unlikely - Initial labs notable for mildly elevated AST/ALT/alk phos, lipase 89, lacate wnl - Patient reports that she has had a recent CT Abdomen/Pelvis at an outside hospital which showed no acute abnormalities. Given patient's chronic abdominal pain with repeatedly normal imaging did notobtain repeat imaging - Managed nausea with prn zofran and phenergan - Received multimodal pain control with scheduled tylenol, Bentyl, pregabalin, venlafaxine, prn gi cocktails, prn oxycodone with prn dilaudid for breakthrough pain. - Patient reported that pain was not controlled despite multimodal pain regimen. Patient repeatedlyasking for more IV Dilaudid despite multiple attempts at explaining reasoning for weaning opioids. - On 03/22 patient self discharged because she believed her pain was not well controlled, she returned to the ED a few hours later and was agreeable to readmission and at that time agreed to try IV ketamine. At that time it was explained to the patient that we would not be increasing her opioid regimen as this would not be a good option for chronic pain control. - Recommend continued outpatient follow-up with GI as previously scheduled per patient as well as follow-up with pain management Surgeries and Procedures Medication List .. acetaminophen [...] mL nasal spray Commonly known as: Narcan Administer 1 spray (4 mg total) into affected nostril(s) if needed for opioid reversal. Call 911. Give 4 mg (1 spray) into one nostril. Repeat every 2-3 minutes as needed, alternating nostrils, untilmedical assistance arrives. ondansetron ODT 4 MG disintegrating tablet Commonly known as: Zofran-ODT Take 4 mg by mouth every 8 (eight) hours if needed for nausea or vomiting. oxyCODONE-acetaminophen 7.5-325 MG tablet Commonly known as: Percocet Take 1 tablet by mouth 3 (three) times a day if needed for severe pain. pancrelipase (Hrr-Iuwk-Jmaq) [id number] units capsule Commonly known as: Creon Take [...] and Resolved Hospital Problems Hospital * (Principal) RESOLVED: Abdominal pain Post Discharge Instructions Please follow-up with PCP and GI as previously scheduled Outpatient Follow-Up No future appointments. Test Results Pending At Discharge Pertinent Physical Exam At Time of Discharge Physical Exam Constitutional: Appearance: Normal appearance. HENT: Head: Normocephalic and atraumatic. Eyes: Extraocular Movements: Extraocular movements intact. Conjunctiva/sclera: Conjunctivae normal. Cardiovascular: Rate and Rhythm: Normal rate and regular rhythm. Pulmonary: Effort: Pulmonary effort is normal. No respiratory distress. Abdominal: General: Bowel sounds are normal. There is no distension. Palpations: Abdomen is soft. Tenderness: There is abdominal tenderness (epigastric). Musculoskeletal: [...] in preparation for this discharge. Cosigned by Alessia Joe MD at 03/27/2022 4:43 PM EST Associated attestation - Alessia Joe MD - 03/27/2022 4:43 PM EST I saw and evaluated the patient with the resident/fellow. I discussed the case with the resident/fellow and agree with the findings and plan as documented. Pt with ongoing chronic pain from chronic pancreatitis. Patient is on oxycodone tid prn as outpatient. Her labs have been relative stable with only mild elevation in Lfts this admission. Multiple discussions done with patient this admission that IV narcotic medications are not appropriate and she needs a good outpatient pain regimen. She has been recommended spinal pain pump, but she has deferredit. She currently follows up with PCP and has plans for EGD/ERCP next week with her local GI. Pt with episodes of crying when IV pain medication doses are not escalated and initially refused alternative proposed options. However, later on agreeable to try IV ketamine and that seemed to work very well for her. Avoid IV narcotics. Plan for patient to keep outpt EGD/ERCP appointment next week and follow up with her PCP. * Hospital Course - Shante English MD - 03/26/2022 1:13 PM EST Lila Mcnally is a 36 y.o. female with a PMH of GERD, pancreatitis, HTN, fibromyalgia, anxiety, depression who presented on 03/20 with worsening epigastric abdominal pain. Patient has a history of chronic pancreatitis with multiple ED visits for acute exacerbations of this pain. She was admitted for possible pancreatitis flare. Despite multimodal pain control patient repeatedly asked for increases to her opioid regimen. She was initially refusing offers of toradol and ketamine saying that those medications do not work for her. High concern for opioid hyperalgesia worsening patient's abdominal pain so increases to opioids were not made. 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 Given patient's chronic abdominal pain with repeatedly normal imaging did notobtain repeat imaging - Managed nausea with prn zofran and phenergan - Received multimodal pain control with scheduled tylenol, Bentyl, pregabalin, venlafaxine, prn gi cocktails, prn oxycodone with prn dilaudid for breakthrough pain. - Patient reported that pain was not controlled despite multimodal pain regimen. Patient repeatedlyasking for more IV Dilaudid despite multiple attempts at explaining reasoning for weaning opioids. - On 03/22 patient self discharged because she believed her pain was not well controlled, she returned to the ED a few hours later and was agreeable to readmission and at that time agreed to try IV ketamine. At that time it was explained to the patient that we would not be increasing her opioid regimen as this would not be a good option for chronic pain control. - Recommend continued outpatient follow-up with GI as previously scheduled per patient as well as follow-up with pain management * Progress Notes - Suzi Shields - 03/26/2022 11:22 AM EST Case Management Discharge Note Lila Sheyla Mcnally 36 y.o. female CSN: [id number] Admission: 03/22/2022 4:32 PM Primary Problem: Abdominal pain Primary Metallurgical Lab Technician: Assistance Available at Discharge: Housing Circumstances-Z Codes: Patient Referred to Financial or Community Resources: Discharge Facility/Level of Care Needs: Patient's Choice of Community Agency(s): Patient/Family Anticipated Services at Transition: Patient/Family Anticipated Services at Transition: none DME/Equipment Needed after Discharge: Equipment Currently Used at Home: none Equipment Needed After Discharge: none Readmission Within the Last 30 Days: Medicare Documentation: Follow-up: No follow-up provider specified. Discharge Transportation: Transportation Anticipated: car, drives self Transportation Home at Discharge: Family/Friend will Provide Has discharge transport been arranged?: Yes What day is the transport expected?: 03/26/22 Follow Up Transport: Pt or her family Additional Comments: Suzi Shielsd * Care Plan - Jose Arango - 03/25/2022 11:02 PM EST Problem: Adult Inpatient Plan of Care Goal: Plan of Care Review Outcome: Ongoing, Progressing Goal: Patient-Specific Goal (Individualized) Outcome: Ongoing, Progressing Goal: Absence of Hospital-Acquired Illness or Injury Outcome: Ongoing, Progressing Goal: Optimal Comfort and Wellbeing Outcome: Ongoing, Progressing Goal: Readiness for Transition of Care Outcome: Ongoing, Progressing * Care Plan - Christine Wood RN - 03/25/2022 4:53 PM EST Problem: Adult Inpatient Plan of Care Goal: Plan of Care Review Outcome: Ongoing, Progressing Flowsheets (Taken 03/25/2022 1653) Progress: improving Plan of Care Reviewed With: patient Goal: Patient-Specific Goal (Individualized) Outcome: Ongoing, Progressing Flowsheets (Taken 03/25/2022 0900) Patient/Family-Specific Goals (Include Timeframe): patient will remian free from falls and injury on 03/25/22 Individualized Care Needs: pain control Anxieties, Fears or Concerns: decreasing pain medication Goal: Absence of Hospital-Acquired Illness or Injury Outcome: Ongoing, Progressing Goal: Optimal Comfort and Wellbeing Outcome: Ongoing, Progressing Goal: Readiness for Transition of Care Outcome: Ongoing, Progressing Problem: Pain Acute Goal: Optimal Pain Control and Function Outcome: Ongoing, Progressing * Progress Notes - Suzi Shields - 03/25/2022 1:53 PM EST Case Management Adult Progress Note Lial Mcnally 36 y.o. female CSN: [id number] Admission: 03/22/2022 4:32 PM Primary Problem: Abdominal pain Anticipated Discharge Date: 03/26/22 Has Discharge Plans Changed? No Medicare Second Notice: Housing Circumstances: Low Income ( 101-300% Federal Poverty Guideline) Housing Circumstances Action Taken: Additional Comments Pt has been weened down/off pain meds and is taking oral intake. Pt expected to d/c in the next 24/48 hours. Suzi Shields * Progress Notes - Shante English MD - 03/25/2022 11:49 AM EST Images from the original note were not included. Hospital Medicine Progress Note Subjective Length of stay: 3 days Brief Patient Summary: 36 y.o. female with a PMH of GERD, pancreatitis, HTN, fibromyalgia, anxiety, depression who presents with worsening acute on chronic epigastric abdominal pain possibly due to pancreatitis flare vs chronic functional abdominal pain Edited by: Shante English MD at 03/20/2022 1727 Subjective Overnight patient was reporting worsening abdominal pain. Toradol was ordered but patient refused. This morning she states she is in extreme pain and doesn't understand why we haven't done anything to help her. She says toradol does not work for her. We again discussed the risks of radiation with getting repeated CT scans as well as the risk of increasing opioid regimen for chronic pain. She is tearful this morning. Reminded patient of discussion regarding discharge yesterday when she was feeling improvement with the ketamine and she says she was not being honest with us then and she has beenin pain during the entire admission. Review of Systems Review of Systems Constitutional: Negative for chills and fever. Respiratory: Negative for cough and shortness of breath. Cardiovascular: Negative for chest pain and palpitations. Gastrointestinal: Positive for abdominal pain and nausea. Objective Objective Last Recorded Vitals Blood pressure (!) 139/91, pulse 83, temperature 36.9 ??C (98.4 ??F), resp. rate 18, height 1.651 m(5' 5 ), weight 103 kg (226 lb 6.6 oz), SpO2 99 %, not currently . Physical Exam Constitutional: Appearance: Normal appearance. HENT: Head: Normocephalic and atraumatic. Eyes: Extraocular Movements: Extraocular movements intact. Conjunctiva/sclera: Conjunctivae normal. Cardiovascular: Rate and Rhythm: Normal rate. Pulmonary: Effort: Pulmonary effort is normal. No respiratory distress. Abdominal: General: Bowel sounds are normal. There is no distension. Palpations: Abdomen is soft. Tenderness: There is abdominal tenderness (epigastric). There is no guarding. Musculoskeletal: Right lower leg: No edema. Left lower leg: No edema. Skin: General: Skin is warm and dry. Neurological: General: No focal deficit present. Mental Status: She is alert and oriented to person, place, and time. Psychiatric: Behavior: Behavior normal. Relevant Results Labs in last 18 hours [...] ?? Bili ?? Alb ?? D.Bili ?? IMAGING (past 24h): No new imaging. Assessment/Plan Assessment & Plan Principal Problem: Abdominal pain Lila Mcnally is a 36 y.o. 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 Given patient's chronic abdominal pain with repeatedly normal imaging will not obtain another CT at this time PLAN: - IV zofran and IV phenergan prn for nausea - will try Regular diet today - Will continue multimodal pain control with scheduled tylenol, Bentyl, pregabalin, venlafaxine, prn gi cocktails, prn oxycodone. - Continue IV ketamine. Will discontinue Dilaudid today. Chronic Medical Conditions: Pancreatic insufficiency - continue home Creon GERD - continue home pantoprazole Mood - continue home venlafaxine, latuda Anxiety - continue home Ativan Fluids: MIVF 100cc/h 10h DVT Ppx: PLOV Diet: Regular diet Code status: Full Code Radha English MD Internal Medicine PGY-2 Cosigned by Alessia Joe MD at 03/25/2022 2:51 PM EST Associated attestation - Alessia Joe MD - 03/25/2022 2:51 PM EST I saw and evaluated the patient with the resident/fellow. I discussed the case with the resident/fellow and agree with the findings and plan as documented. Patient stating that her pain is not well controlled. I have already had multiple discussions with her this admission that her ongoing pain is something that needs good [facility]. Explained to her that she has already had multiple CTs without any acute findings with last one as recent as 2 weeks ago per her. Both patient and mother were agreeable with current management yesterday and discharge today. However, now patient is again fixated at a quick fix of her pain. Pt stated that she canceled her appointment with PCP today and moved it to . Patient has been recommended pain pump in the past and she has refused it. She currently gets oxycodone through her PCP and per chart review they have also recommended cognitive behavior therapy. I explained to her that we will be discontinuing dilaudid today as we talked about on admission, atwhich time she agreed. However, today she states that she never agreed to it, it was her mother whoagreed to it. No further addition or escalation of narcotics. Will continue IV ketamine today. Pt has been offered other pain medication options including toradol, tylenoI and she states non of that works including current oxycodone. She also has not been taking her effexor here. I have laid out clear expectations with the patient that I would not be prescribing any opioids at the time of discharge. She should keep follow up with her local GI that has been seeing her outpatient and continue with her planned EGD/ERCP on 04/02/22 . Pt's labs have been stable. Last LFT elevation on labs is not correct as the labs were hemolyzed. * Nursing Note - Jose Arango - 03/25/2022 12:33 AM EST At approx 12:05 this RN notified the 1st provider in re to pt c/o of sever abd pain. Abd soft, bs active. This RN notified Dr. Levy of pt's c/o's and asked if wanted any labs/scans or any additional meds ordered. Dr. Levy ordered toradol per apr. Went in approx 15 mins ago and pt was asleep. * Care Plan - Jose Arango - 03/24/2022 10:09 PM EST Problem: Adult Inpatient Plan of Care Goal: Plan of Care Review Outcome: Ongoing, Progressing Goal: Patient-Specific Goal (Individualized) Outcome: Ongoing, Progressing Goal: Absence of Hospital-Acquired Illness or Injury Outcome: Ongoing, Progressing Goal: Optimal Comfort and Wellbeing Outcome: Ongoing, Progressing Goal: Readiness for Transition of Care Outcome: Ongoing, Progressing * Care Plan - Christine Wood RN - 03/24/2022 6:09 PM EST Problem: Adult Inpatient Plan of Care Goal: Plan of Care Review Outcome: Ongoing, Progressing Flowsheets (Taken 03/24/2022 1809) Progress: improving Plan of Care Reviewed With: patient Goal: Patient-Specific Goal (Individualized) Outcome: Ongoing, Progressing Flowsheets (Taken 03/24/2022 0900) Patient/Family-Specific Goals (Include Timeframe): patient will remain free from falls and injury on 03/24/22 Individualized Care Needs: pain control Anxieties, Fears or Concerns: none verbalized Goal: Absence of Hospital-Acquired Illness or Injury Outcome: Ongoing, Progressing Goal: Optimal Comfort and Wellbeing Outcome: Ongoing, Progressing Goal: Readiness for Transition of Care Outcome: Ongoing, Progressing * Consults - Ramon Morgan RN - 03/24/2022 11:25 AM EST VAT to bedside @ 1110 am. Patient states that she has working IV access and wishes to not get another IV at this time. Spoke with primary nurse Meryl Wood RN @1125 am and she stated okay to complete the consult at this time. Please re- consult VAT as needed. * Progress Notes - Shante English MD - 03/24/2022 11:22 AM EST Images from the original note were not included. Hospital Medicine Progress Note Subjective Length of stay: 2 days Brief Patient Summary: 36 y.o. female with a PMH of GERD, pancreatitis, HTN, fibromyalgia, anxiety, depression who presents with worsening acute on chronic epigastric abdominal pain possibly due to pancreatitis flare vs chronic functional abdominal pain Edited by: Shante English MD at 03/20/2022 1727 Subjective No acute events overnight. This morning patient states he pain is well controlled and she is currently not having any nausea, she is agreeable to trying a regular diet today and is comfortable with being discharged from the hospital early tomorrow morning Review of Systems Review of Systems Constitutional: Negative for chills and fever. Respiratory: Negative for cough and shortness of breath. Cardiovascular: Negative for chest pain and palpitations. Gastrointestinal: Positive for abdominal pain and nausea. Objective Objective Last Recorded Vitals Blood pressure 122/84, pulse 64, temperature 36.3 ??C (97.3 ??F), temperature source Axillary, resp. rate 18, height 1.651 m (5' 5 ), weight 103 kg (226 lb 6.6 oz), SpO2 99 %, not currently . Physical Exam Constitutional: Appearance: Normal appearance. HENT: Head: Normocephalic and atraumatic. Eyes: Extraocular Movements: Extraocular movements intact. Conjunctiva/sclera: Conjunctivae normal. Cardiovascular: Rate and Rhythm: Normal rate. Pulmonary: Effort: Pulmonary effort is normal. No respiratory distress. Abdominal: General: Bowel sounds are normal. There is no distension. Palpations: Abdomen is soft. Tenderness: There is abdominal tenderness (epigastric). There is no guarding. Musculoskeletal: Right lower leg: No edema. Left lower leg: No edema. Skin: General: Skin is warm and dry. Neurological: General: No focal deficit present. Mental Status: She is alert and oriented to person, place, and time. Psychiatric: Behavior: Behavior normal. Relevant Results Labs in last 18 hours CBC WBC ?? Hb ?? Plt ?? Hct ?? ANC ?? INR ??, PTT ??, Anti-Xa ?? BMP Na 132 (L) Cl 98 BUN 11 Glu 105 (H) K 5.4 (H) Co2 22 Cr 0.72 Ca 9.6 iCa ?? Mg ??, Phos ?? Lactate ?? LFT AST 76 (H) AlkPhos 112 (H) T Prot 6.9 ALK 86 (H) Bili 0.4 Alb ?? D.Bili ?? IMAGING (past 24h): No new imaging. Assessment/Plan Assessment & Plan Principal Problem: Abdominal pain Lila Mcnally is a 36 y.o. female with PMH as per above who presents with acute on chronic abdominal pain Acute on chronic abdominal pain likely due to functional abdominal pain complicated by opioid hyperalgesia in the setting of nursing home opiate use - Ddx includes acute pancreatitis flare, choledocolithiasis, constipation, IBS, functional abdominal pain, opioid hyperalgesia - Patient has extensive history of chronic abdominal pain requiring multiple ED visits over the last year - Patient reports that she has had removal of her gallbladder making choledocholithiasis unlikely - Labs notable for mildly elevated AST/ALT/alk phos, lipase 89, lacate wnl - Patient reports that she has had a recent CT Abdomen/Pelvis at an outside hospital which showed no acute abnormalities. Given patient's chronic abdominal pain with repeatedly normal imaging will not obtain another CT at this time PLAN: - IV zofran and IV phenergan prn for nausea - will try Regular diet today - Will continue multimodal pain control with scheduled tylenol, Bentyl, pregabalin, venlafaxine, prn gi cocktails, prn oxycodone with prn dilaudid for breakthrough pain. - Continue IV ketamine as patient is reporting improvement, will plan for discharge tomorrow Chronic Medical Conditions: Pancreatic insufficiency - continue home Creon GERD - continue home pantoprazole Mood - continue home venlafaxine, latuda Anxiety - continue home Ativan Fluids: MIVF 100cc/h 10h DVT Ppx: PLOV Diet: Regular diet Code status: Full Code Radha English MD Internal Medicine PGY-2 Cosigned by Alessia Joe MD at 03/24/2022 6:02 PM EST Associated attestation - Alessia Joe MD - 03/24/2022 6:02 PM EST I saw and evaluated the patient with the resident/fellow. I discussed the case with the resident/fellow and agree with the findings and plan as documented. Anticipate discharge tomorrow. Continue multimodal pain control. No further escalation of narcotic pain medications. * Nursing Note - Laureen Keating, RN - 03/24/2022 3:57 AM EST 03/24/22 0356 Event/Notification Description Event Location [facility] and Room Number 716 Reason for Rapid Response Team notification IV Is the patient a DNR? No Type of Event IV/Labs Method of Notification Nurse (specify) Onset and Notification Specifics Time C.O.D. CLERK RN Notified 0330 Time C.O.D. CLERK RN Arrived 0345 Additional C.O.D. CLERK/ Other Clinicians Present E Dorothy Monitoring Data For Monitoring Data, See: Assessment flowsheet Rapid Response Outcome Survival Yes Rapid Response Termination Due to Patient remained on floor 0345- C.O.D. CLERK notified of need of an IV placement. IV placed by CHANDNI Garduno 22 gauge @ right breast. No swelling or redness noted. Positive blood return, flushes without difficulty with 10ml NS flush. PIV placed on first attempt. Patient tolerated well. IV secured with Tegaderm and tape. * Nursing Note - Leta Sinclair - 03/23/2022 8:[address] Tripp Arce MD of pt complaining of pain 12/02 , pt states her pain is not being well controlled with her pain regimen. Pt states she will call 911 and go to another hospital to get betterpain control. Notified MD of last doses of pain medication & GI cocktail given and asked MD to come to bedside due pt patient crying. Vital signs WNL. Will continue to assess during this shift. MD came to bedside and spoke with patient, no new orders placed at this time, day team to re-assess pain regimen, per Dr Arce. * Progress Notes - Shante English MD - 03/23/2022 11:18 AM EST Images from the original note were not included. Hospital Medicine Progress Note Subjective Length of stay: 1 day Brief Patient Summary: 36 y.o. female with a PMH of GERD, pancreatitis, HTN, fibromyalgia, anxiety, depression who presents with worsening acute on chronic epigastric abdominal pain possibly due to pancreatitis flare vs chronic functional abdominal pain Edited by: Shante English MD at 03/20/2022 1727 Subjective No acute events overnight. This morning after starting the ketamine patient seems much more comfortable. She says that she is still having some epigastric pain but is no longer feeling the high levels of anxiety and has been able to relax making her pain seem a bit improved. She has not eaten food yet but has been keeping down liquids and is going to try eating lunch later today. Review of Systems Review of Systems Constitutional: Negative for chills and fever. Respiratory: Negative for cough and shortness of breath. Cardiovascular: Negative for chest pain and palpitations. Gastrointestinal: Positive for abdominal pain and nausea. Objective Objective Last Recorded Vitals Blood pressure 110/82, pulse 89, temperature 37 ??C (98.6 ??F), temperature source Oral, resp. rate16, height 1.651 m (5' 5 ), weight 103 kg (226 lb 6.6 oz), SpO2 97 %, not currently . Physical Exam Constitutional: Appearance: Normal appearance. HENT: Head: Normocephalic and atraumatic. Eyes: Extraocular Movements: Extraocular movements intact. Conjunctiva/sclera: Conjunctivae normal. Cardiovascular: Rate and Rhythm: Normal rate. Pulmonary: Effort: Pulmonary effort is normal. No respiratory distress. Abdominal: General: Bowel sounds are normal. There is no distension. Palpations: Abdomen is soft. Tenderness: There is abdominal tenderness (epigastric). There is no guarding. Musculoskeletal: Right lower leg: No edema. Left lower leg: No edema. Skin: General: Skin is warm and dry. Neurological: General: No focal deficit present. Mental Status: She is alert and oriented to person, place, and time. Psychiatric: Behavior: Behavior normal. Relevant Results Labs in last 18 hours CBC WBC ?? Hb ?? Plt ?? Hct ?? ANC ?? INR ??, PTT ??, Anti-Xa ?? BMP Na 137 Cl 99 BUN 8 Glu 99 K 4.0 Co2 29 Cr 0.66 Ca 9.4 iCa ?? Mg 2.1, Phos ?? Lactate ?? LFT AST 59 (H) AlkPhos 101 T Prot 6.5 ALK 78 (H) Bili 0.3 Alb ?? D.Bili ?? IMAGING (past 24h): No new imaging. Assessment/Plan Assessment & Plan Principal Problem: Abdominal pain Lila Mcnally is a 36 y.o. 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 Given patient's chronic abdominal pain with repeatedly normal imaging will not obtain another CT at this time PLAN: - IVF 100cc/hr for 10 hours - IV zofran and IV phenergan prn for nausea - will continue Full Liquid diet for now, if patient tolerating diet overnight can escalate to Regular diet tomorrow. - Will continue multimodal pain control with scheduled tylenol, Bentyl, pregabalin, venlafaxine, prn gi cocktails, prn oxycodone with prn dilaudid for breakthrough pain. - Continue IV ketamine as patient is reporting improvement, will aim to discontinue dilaudid tomorrow and begin to wean ketamine. Chronic Medical Conditions: Pancreatic insufficiency - continue home Creon GERD - continue home pantoprazole Mood - continue home venlafaxine, latuda Anxiety - continue home Ativan Fluids: MIVF 100cc/h 10h DVT Ppx: PLOV Diet: Full liquid diet Code status: Full Code Radha English MD Internal Medicine PGY-2 Cosigned by Alessia Joe MD at 03/23/2022 3:34 PM EST Associated attestation - Alessia Joe MD - 03/23/2022 3:34 PM EST I saw and evaluated the patient with the resident/fellow. I discussed the case with the resident/fellow and agree with the findings and plan as documented. * ED Notes - George Amanda RN - 03/22/2022 9:34 PM EST Per admitting provider- no change to pain regimen at this time as am team discussed POC with patient. George Amanda RN 03/22/222133 * ED Notes - George Amanda RN - 03/22/2022 9:05 PM EST Patient asking for pain and nausea med. Rates pain 9/10 in upper abdomen. Patient has slurred speech and appears sedated. VSS. Message sent to first call provider. George Amanda RN 03/22/222105 * H&P - Tereza Escalera MD - 03/22/2022 5:38 PM ESTAssociated Order(s): Consult to [facility] Images from the original note were not included. Consult to [facility] Consult performed by: Tereza Escalera MD Consult ordered by: DANIA Valdivia [facility] History & Physical Subjective 03/22/2022 Chief Complaint: Chief Complaint Patient presents with Abdominal Pain History Of Present Illness Lila Mcnally is a 36 y.o. female with a PMH of GERD, pancreatitis, HTN, fibromyalgia, anxiety, depression who presents with worsening epigastric abdominal pain. Patient has a history of chronic pancreatitis with multiple ED visits for acute exacerbations of this pain. She states that chronically her pain is rated as a 7/10 and adequately controlled with oxycodone prn at home. She says that atabout 7am yesterday morning she began to have sharp pains in her epigastric region which radiates to her left side and back and is now rating her pain at a 10/10. She says this pain feels very similar to her previous exacerbations. She says over the past day she has been unable to tolerate po intake and the pain has become so severe that it is causing her to be nauseous and she has vomited. She denies ay sick contacts and prior to the onset of her pain was in her usual state of health. She denies fevers, constipation, urinary changes. She reports that she has plans to see a new [facility] in [place] for an EGD in March. Notably she does report a history of cholecystectomy. She denies any other abdominal procedures and denies any history of IBS or IBD. Patient was discharged from our team this afternoon but states she was unable to make it home before her nausea, vomiting, and abdominal pain worsened. Patient's mother turned around and returned to ED for re-admission. Discussed with patient and mother the multi-modal pain regimen will be the samethat was offered this morning and patient is agreeable and willing to try ketamine at this time along with the prior regimen. Past Medical History Past Medical History: Diagnosis Date Anxiety Arthritis Depression Fibromyalgia GERD (gastroesophageal reflux disease) Hypertension Nicotine dependence Obesity Pancreatitis Surgical History Past Surgical History: Procedure Laterality Date CHOLECYSTECTOMY ERCP ESOPHAGOGASTRODUODENOSCOPY HAND SURGERY I have reviewed this patient's past surgical history and commented on sigificant events within the HPI Family History Family History Problem Relation Name [...] per week Types: Marijuana Comment: daily use Travel History Travel Screening Question Response In the last 10 days, have you been in contact with someone who was confirmed or suspected to have Coronavirus/COVID-19? No / Unsure Have you had a COVID-19 viral test in the last 10 days? No Do you have any of the following new or worsening symptoms? Abdominal pain;Vomiting Have you traveled internationally or domestically in the last month? No Travel History Travel since 02/19/22 No documented travel since 02/19/22 Immunizations Immunization History Administered Date(s) Administered Influenza, injectable, quadrivalent, preservative free 11/21/2019, 12/27/2020 Moderna COVID-19 Vaccine (Air Brake Operator) 12+ years 06/11/2020, 07/05/2020 Pfizer-BioNTech COVID-19 Vaccine (Purple Cap) 12+ 02/10/2021 Allergies Droperidol and Tramadol Home Medications Current Outpatient Medications Medication Instructions acetaminophen (TYLENOL) 1,000 mg, Oral, Every 6 hours PRN Cholecalciferol (VITAMIN D3 PO) Oral, Daily Cyanocobalamin (VITAMIN B12 PO) Oral, Daily ketoconazole (NIZOral) 2 % cream 1 application, Topical, Daily Latuda 40 mg, Oral, Daily with breakfast lidocaine (Lidoderm) 5 % patch 1 patch, Apply externally, As needed, Remove & discard patch within 12 hours or as directed by MD. LORazepam (ATIVAN) 1 mg, Oral, Daily Melatonin 5 mg, Oral, Nightly PRN naloxone (NARCAN) 4 mg, Nasal, As needed, Call 911. Give 4 mg (1 spray) into one nostril. Repeat every 2-3 minutes as needed, alternating nostrils, until medical assistance arrives. ondansetron ODT (ZOFRAN-ODT) 4 mg, Oral, Every 8 hours PRN oxyCODONE-acetaminophen (Percocet) 7.5-325 MG tablet 1 tablet, Oral, 3 times daily PRN pancrelipase, Ldh-Dqdt-Zikm, (Creon) 73554-89207 units capsule 2 capsules, Oral, 3 times daily withmeals pantoprazole (PROTONIX) 40 mg, Oral, 2 times daily, Do not crush, chew, or split. pregabalin (LYRICA) 300 mg, Oral, 2 times daily promethazine (PHENERGAN) 25 mg, Oral, Every 6 hours PRN sucralfate (CARAFATE) 1 g, Oral, 4 times daily venlafaxine XR (EFFEXOR-XR) 150 mg, Oral, Daily Review of Systems Review of Systems Constitutional: Positive for fatigue. Negative for chills and fever. HENT: Negative for rhinorrhea and sore throat. Eyes: Negative for photophobia and visual disturbance. Respiratory: Negative for cough and shortness of breath. Cardiovascular: Negative for chest pain, palpitations and leg swelling. Gastrointestinal: Positive for abdominal pain, nausea and vomiting. Genitourinary: Negative for difficulty urinating and dysuria. Musculoskeletal: Negative for arthralgias and back pain. Skin: Negative for rash and wound. Neurological: Negative for dizziness, light-headedness and headaches. Objective Last Recorded Vitals Blood pressure (!) 139/90, pulse 79, temperature 36.9 ??C (98.4 ??F), temperature source Oral, resp. rate 16, height 1.651 m (5' 5 ), weight 103 kg (226 lb 6.6 oz), SpO2 100 %, not currently . Physical Exam Constitutional: General: She is not in acute distress. Appearance: Normal appearance. HENT: Mouth/Throat: Mouth: Mucous membranes are moist. [...] abdominal tenderness in the epigastric area. Musculoskeletal: Right lower leg: No edema. Left lower leg: No edema. Skin: General: Skin is warm and dry. Neurological: General: No focal deficit present. Mental Status: She is alert and oriented to person, place, and time. Mental status is at baseline. Psychiatric: Mood and Affect: Mood normal. Behavior: Behavior normal. Data Labs in last 18 hours CBC WBC ?? Hb ?? Plt ?? Hct ?? ANC ?? INR ??, PTT ??, Anti-Xa ?? BMP Na 139 Cl 102 BUN 9 Glu 118 (H) K 4.5 Co2 28 Cr 0.72 Ca 9.2 iCa ?? Mg ??, Phos ?? Lactate ?? LFT AST 50 (H) AlkPhos 100 T Prot 6.4 ALK 61 (H) Bili <0.2 (L) Alb ?? D.Bili ?? IMAGING (past 24h): No new imaging. Assessment/Plan Assessment/ Plan Principal Problem: Abdominal pain Lila Mcnally is a 36 y.o. female with PMH as per above who presents with acute on chronic abdominal pain and persistent nausea/vomiting. Returned for re- admission 2 hours after discharge due to the nausea and vomiting. 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 Given patient's chronic abdominal pain with repeatedly normal imaging will not obtain another CT at this time PLAN: - continue pain control with oxycodone 10mg q6h prn, Dilaudid 1mg po q8h to avoid continued IV painmedications. Discussed this with patient at re-admission and she was agreeable. - IVF 100cc/hr for 10 hours - V zofran and IV phenergan prn for nausea - will continue Clear Liquid diet for now, if patient tolerating diet overnight can escalate to Full liquid diet tomorrow. - Will continue multimodal pain control with scheduled tylenol, Bentyl, pregabalin, venlafaxine, prn gi cocktails, prn oxycodone with prn dilaudid for breakthrough pain. - In ED at time of re-admission had discussion of expectations and pain management with patient. She is agreeable with above multi-modal pain regimen and interested in trialing ketamine at this time.Will start ketamine 10mg IVPB every 8 hours. Chronic Medical Conditions: Pancreatic insufficiency - continue home Creon GERD - continue home pantoprazole Mood - continue home venlafaxine, latuda Anxiety - continue home Ativan Fluids: PO and MIVF 100cc/h 10h DVT Ppx: PLOV Diet: Clear liquid diet Code status: Full Code Dispo: Admit to Floor Electronically Signed by: Tereza Escalera MD - 03/22/2022 - 5:39 PM Cosigned by Alessia Joe MD at 03/22/2022 6:24 PM EST Associated attestation - Alessia Joe MD - 03/22/2022 6:24 PM EST I saw and evaluated the patient with the resident/fellow. I discussed the case with the resident/fellow and agree with the findings and plan as documented. Patient was discharged from our team this afternoon as per her wishes as she was not happy with current pain regimen and our discussions with her of not escalating dilaudid dose. She came back to th ED while on her way home. Pt seen and examined in ED. States that she thought she would be okay going home, but could not make it there before asking her mother to drive back to ED. Discussed with pt that plan will remain the same with IV fluids, IV antiemetics, and same oxy and dilaudid dose as before. Pt also now willing to try ketamine. Plan to continue oxycodone 10mg q6hrs, tylenol, pregabalin. Will do po dilaudid 1mg q8hrs. Explained to patient with initiation of ketamineexpect weaning of dilaudid in next 24-48hrs. Pt verbalized understanding. Mother at bedside and is agreeable as well. * ED Provider Notes - Claudio Herrera PA - 03/22/2022 4:00 PM EST HPI Chief Complaint Patient presents with Abdominal Pain Patient is a 36-year-old female who presents to the emergency room with reports of having abdominalpain to the left upper quadrant with nausea and vomiting. Patient reports that she was admitted approximately 2 days ago to the hospital here due to intractable abdominal pain with reports that she was missing her kids today and wanted to leaving go home. Patient reports that she was discharged earlier today upon her insistence so that she could go home and see her kids. Patient's mother is with patient with reports that she came and picked up patient in half the way home patient started havingexcruciating left upper quadrant abdominal pain with 1 episode of nausea vomiting. Reports no bloodin emesis or in stool. No black tarry stools. Reports no fever chills. Reports no chest pain, no shortness of air, wheezing or stridor. Patient reports no back pain, flank pain or urinary symptoms. Patient reports no vaginal bleeding or vaginal discharge. Patient reports no headache, visual changesor tinnitus. Patient reports no numbness/tingling weakness. Patient reports no dizziness or feelinglightheaded. Patient reports no other problems or complaints. 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 by: Patient physician scientist used: No Abdominal Pain Pain location: LUQ Pain quality: stabbing Pain radiates to: Does not radiate Pain severity: Moderate Onset quality: Gradual Duration: 1 hour Timing: Constant Progression: Waxing and waning Chronicity: New Relieved by: Nothing Worsened by: Nothing Ineffective treatments: None tried Associated symptoms: nausea and vomiting Associated symptoms: no chest pain, no chills, no constipation, no cough, no diarrhea, no dysuria, no fatigue, no fever, no flatus, no hematemesis, no hematochezia, no hematuria, no melena, no shortness of breath, no sore throat, no vaginal bleeding and no vaginal discharge Tryon Coma Scale Score: 15 Patient History Past [...] and fever. HENT: Negative for facial swelling, sore throat, tinnitus, trouble swallowing and voice change. Eyes: Negative for photophobia and visual disturbance. Respiratory: Negative for cough, chest tightness, shortness of breath, wheezing and stridor. Cardiovascular: Negative for chest pain, palpitations and leg swelling. Gastrointestinal: Positive for abdominal pain, nausea and vomiting. Negative for abdominal distention, blood in stool, constipation, diarrhea, flatus, hematemesis, hematochezia, melena and rectal pain. Genitourinary: Negative for decreased urine volume, difficulty urinating, dysuria, flank pain, frequency, hematuria, urgency, vaginal bleeding, vaginal discharge and vaginal pain. Musculoskeletal: Negative for back pain, myalgias, neck pain and neck stiffness. Skin: Negative. Neurological: Negative for dizziness, tremors, seizures, speech difficulty, weakness, light-headedness, numbness and headaches. Psychiatric/Behavioral: Negative for behavioral problems. The patient is not nervous/anxious. Physical Exam ED Triage Vitals [03/22/22 1630] Temp Heart Rate Resp BP 36.9 ??C (98.4 ??F) 79 16 (!) 139/90 SpO2 Temp Source Heart Rate Source Patient [...] or rales. Abdominal: General: Abdomen is flat. Bowel sounds are normal. There is no distension. Palpations: Abdomen is soft. There is no hepatomegaly, splenomegaly or mass. Tenderness: There is abdominal tenderness in the left upper quadrant. There is guarding. There is no right CVA tenderness, left CVA tenderness or rebound. Skin: General: Skin is warm and dry. Capillary Refill: Capillary refill takes less than 2 seconds. Coloration: Skin is not cyanotic, jaundiced, mottled or pale. Neurological: General: No focal deficit present. Mental Status: She is alert and oriented to person, place, and time. Psychiatric: Mood and Affect: Mood normal. Behavior: Behavior normal. ED Course & MDM Clinical Impressions as of 03/22/22 1730 Acute abdominal pain Nausea and vomiting, unspecified vomiting type ED Disposition: admit Medical Decision Making Patient is a 36-year-old female who presents to the emergency room with reports of having abdominalpain to the left upper quadrant with nausea and vomiting. Patient reports that she was admitted approximately 2 days ago to the hospital here due to intractable abdominal pain with reports that she was missing her kids today and wanted to leaving go home. Patient reports that she was discharged earlier today upon her insistence so that she could go home and see her kids. Patient's mother is with patient with reports that she came and picked up patient in half the way home patient started havingexcruciating left upper quadrant abdominal pain with 1 episode of nausea vomiting. Did speak with my attending Dr. Donis who recommended options with patient to receive pain medication and nausea medication and to possibly go home verses being readmitted due to severe abdominal pain to left upper quadrant with patient reports that she wants to be readmitted. Did have a interactive discussion with Internal Medicine with discussing with Internal Medicine concerning patient being discharged earliertoday due to wanting to go home and see her kids upon patient's insistence to be discharged per patient with patient reports upon discharge that she is unable to tolerate abdominal pain to the left upper quadrant and did have 1 episode of nausea vomiting and patient would like to be readmitted. Internal Medicine to follow up with patient in the ED for further evaluation. Internal Medicine follow-up with patient in the ED for further evaluation with recommending patient to be admitted to their services for further treatment evaluation. Did discuss with patient that she will be admitted to Internal Medicine with patient is agreeable with plan with no further questions. Patient in the ED is hemodynamically stable. Patient is nontoxic appearing and afebrile. ED Prescriptions None Sign Off Checklist Clinical Impression: Complete ED Disposition: Complete DANIA Valdivia 03/22/22 173 Cosigned by Carter Donis MD at 03/22/2022 9:57 PM EST Associated attestation - Carter Donis MD - 03/22/2022 9:57 PM EST The patient was seen only by Advanced Practice Provider (AJAY), and care was reviewed with me. * ED Triage Notes - Andrew Gonzalez RN - 03/22/2022 4:00 PM EST Pt just dcd from admission to here 2 hours ago. Pt reports ongoing abd pain with vomiting. Pt admitted for pancreatitis. documented in this encounter Plan of Treatment Not on file documented as of this encounter Procedures Procedure Name Priority Date/Time Associated Diagnosis Comments LIPASE, PLASMA Routine 03/24/2022 3:05 AM EST COMPREHENSIVE METABOLIC PANEL, PLASMA Routine 03/24/2022 3:05 AM EST MAGNESIUM, PLASMA Routine 03/23/2022 3:2 6 AM EST COMPREHENSIVE METABOLIC PANEL, PLASMA Routine 03/23/2022 3:26 AM EST documented in this encounter Results * Lipase (03/24/2022 3:05 AM EST) Lipase, Plasma 26 19 - 63 U/L 03/24/2022 3:45 AM EST [facility] Blood Venous blood specimen / Unknown Venipuncture / Unknown 03/24/2022 3:05 AM EST 03/24/2022 3:08 AM EST us Tripp Arce MD LAB BLOOD ORDERABLES Final Resul t [facility] [address] [place] [address] * (ABNORMAL) Comprehensive metabolic panel (03/24/2022 3:05 AM EST) Glucose, Plasma 105(H) 74 - 99 mg/dL 03/24/2022 3:45 AM EST [facility] BUN, Plasma 11 7 - 21 mg/dL 03/24/2022 3:45 AM EST [facility] Creatinine, Plasma 0.72 0.60 - 1.10 mg/dL 03/24/2022 3:45 AM EST [facility] BUN/Creatinine Ratio 15 03/24/2022 3:45 AM EST [facility] Sodium, Plasma 132(L) 136 - 145 mmol/L 03/24/2022 3:45 AM EST [facility] Potassium, Plasma 5.4(H) 3.7 - 4.8 mmol/L 03/24/2022 3:45 AM EST [facility] Comment: Hemolyzed, result may be falsely increased. Reference range for Serum potassium is 0.2 to 0.5 mmol/L higher than Plasma range. Chloride, Plasma 98 97 - 107 mmol/L 03/24/2022 3:45 AM EST [facility] CO2, Plasma 22 22 - 29 mmol/L 03/24/2022 3:45 AM EST [facility] Anion Gap 12 6 - 16 mmol/L 03/24/2022 3:45 AM EST [facility] Total Calcium, Plasma 9.6 8.9 - 10.2 mg/dL 03/24/2022 3:45 AM EST [facility] Total Protein 6.9 6.3 - 7.9 g/dL 03/24/2022 3:45 AM EST [facility] Albumin, Plasma 3.9 3.5 - 5.2 g/dL 03/24/2022 3:45 AM EST [facility] AST, Plasma 76(H) 11 - 32 U/L 03/24/2022 3:45 AM EST [facility] Comment:Hemolyzed, result ma y be falsely increased. ALT, Plasma 86(H) 8 - 33 U/L 03/24/2022 3:45 AM EST [facility] Comment:Hemolyzed, result ma y be falsely increased or decreased. Alkaline Phosphatase, Plasma 112(H) 35 - 104 U/L 03/24/2022 3:45 AM [facility] Comment:Hemolyzed, result ma y be falsely decreased. Total Bilirubin, Plasma 0.4 0.2 - 1.1 mg/dL 03/24/2022 3:45 AM EST [facility] eGFRcr 112.0 mL/min/1.7 3m*2 03/24/2022 3:45 AM EST [facility] Comment: Reported eGFRcr in mL/min/1.73m2 is based the CKD-EPI 2021 equation that does not use a race coefficient. Effective 09/18/21 our laboratory changed the eGFR calculation to the CKD-EPI 2021 equation from the previously reported eGFR, based on the MDRD equation. ??For comparisons between the two equations, please see laboratory website: ??[email or web address] Blood Venous blood specimen / Unknown Venipuncture / Unknown 03/24/2022 3:05 AM EST 03/24/2022 3:08 AM EST us Alessia Joe MD LAB BLOOD ORDERABLES Final Resu lt Performing Organization Address City/[facility]/ZIP Co de Phone Number [facility] [address] [place] [address] * Magnesium (03/23/2022 3:26 AM EST) Magnesium, Plasma 2.1 1.9 - 2.4 mg/dL 03/23/2022 5:01 AM EST [facility] Blood Venous blood specimen / Unknown Venipuncture / Unknown 03/23/2022 3:26 AM EST 03/23/2022 4:35 AM EST Alessia Joe MD LAB BLOOD ORDERABLES Final Resu lt Performing Organization Address [facility]/ZIP Co de Phone Number [facility] [address] [place] [address] * (ABNORMAL) Comprehensive metabolic panel (03/23/2022 3:26 AM EST) Pathologist [facility] Glucose, Plasma 99 74 - 99 mg/dL 03/23/2022 5:01 AM EST [facility] BUN, Plasma 8 7 - 21 mg/dL 03/23/2022 5:01 AM EST [facility] Creatinine, Plasma 0.66 0.60 - 1.10 mg/dL 03/23/2022 5:01 AM EST [facility] BUN/Creatinine Ratio 12 03/23/2022 5:01 AM EST [facility] Sodium, Plasma 137 136 - 145 mmol/L 03/23/2022 5:01 AM EST [facility] Potassium, Plasma 4.0 3.7 - 4.8 mmol/L 03/23/2022 5:01 AM EST [facility] Comment:Reference range for Serum potassium is 0.2 to 0.5 mmol/L higher than Plasma range. Chloride, Plasma 99 97 - 107 mmol/L 03/23/2022 5:01 AM EST [facility] CO2, Plasma 29 22 - 29 mmol/L 03/23/2022 5:01 AM EST [facility] Anion Gap 9 6 - 16 mmol/L 03/23/2022 5:01 AM EST [facility] Total Calcium, Plasma 9.4 8.9 - 10.2 mg/dL 03/23/2022 5:01 AM EST [facility] Total Protein 6.5 6.3 - 7.9 g/dL 03/23/2022 5:01 AM EST [facility] Albumin, Plasma 4.0 3.5 - 5.2 g/dL 03/23/2022 5:01 AM EST [facility] AST, Plasma 59(H) 11 - 32 U/L 03/23/2022 5:01 AM EST [facility] ALT, Plasma 78(H) 8 - 33 U/L 03/23/2022 5:01 AM EST [facility] Alkaline Phosphatase, Plasma 101 35 - 104 U/L 03/23/2022 5:01 AM EST [facility] Total Bilirubin, Plasma 0.3 0.2 - 1.1 mg/dL 03/23/2022 5:01 AM EST [facility] eGFRcr 117.5 mL/min/1.7 3m*2 03/23/2022 5:01 AM EST [facility] Comment: Reported eGFRcr in mL/min/1.73m2 is based the CKD-EPI 2020 equation that does not use a race coefficient. Effective 09/18/21 our laboratory changed the eGFR calculation to the CKD-EPI 2020 equation from the previously reported eGFR, based on the MDRD equation. ??For comparisons between the two equations, please see laboratory website: ??[email or web address] Blood Venous blood specimen / Unknown Venipuncture / Unknown 03/23/2022 3:26 AM EST 03/23/2022 4:35 AM EST us Alessia Joe MD LAB BLOOD ORDERABLES Final Resu lt [facility] [address] [place] [id number] documented in this encounter Visit Diagnoses Diagnosis Abdominal pain- Primary Abdominal pain, unspecified site Acute abdominal pain Abdominal pain, unspecified site Nausea and vomiting, unspecified vomiting type documented in this encounter Admitting Diagnoses Diagnosis Abdominal pain Abdominal pain, unspecified site documented in this encounter Administered Medications Inactive Administered Medications - up to 3 most recent administrations Medication Order MAR Action Action Date Dose Rate Site acetaminophen (Tylenol) tablet 650 mg 650 mg, Oral, Every 6 hours scheduled, First dose on 03/22/22 at 1800, Until Discontinued, Routine Given 03/26/2022 12:15 PM EST 650 mg Given 03/25/2022 5:42 PM EST 650 mg Given 03/25/2022 11:49 AM EST 650 mg dicyclomine (Bentyl) capsule 20 mg 20 mg, Oral, 4 times daily, First dose on 03/22/22 at 1800, Until Discontinued, Routine Given 03/26/2022 4:43 PM EST 20 mg Given 03/26/2022 10:22 AM EST 20 mg Given 03/25/2022 5:42 PM EST 20 mg diphenhydrAMINE (BENADryl) tablet 25 mg 25 mg, Oral, Once, 1 dose, On 03/24/22 at 0215, Routine Given 03/24/2022 2:12 AM EST 25 mg enoxaparin (Lovenox) syringe 40 mg 40 mg, Subcutaneous, Daily, First dose on 03/22/22 at 1730, Until Discontinued, Routine Given 03/25/2022 8:23 AM EST 40 mg Left Lower Abdomen Given 03/24/2022 8:46 AM EST 40 mg Le ft Lower Abdomen gi cocktail oral solution 30 mL 30 mL, Oral, 4 times daily PRN, Starting on 03/22/22 at 1731, Until Thu03/26/22 at 2015, Routine, heartburn, indigestion, cramping Given 03/24/2022 5:35 AM EST 30 mL Given 03/23/2022 8:25 PM EST 30 mL HYDROmorphone (Dilaudid) injection 0.25 mg 0.25 mg, Intravenous, Once, 1 dose, On 03/22/22 at 1730, Routine Given 03/22/2022 5:53 PM EST 0.25 mg HYDROmorphone (Dilaudid) tablet 1 mg 1 mg, Oral, Every 8 hours PRN, Starting on 03/23/22 at 0130, Until Tu03/25/22 at 1132, Routine, severe pain Given 03/25/2022 9:48 AM EST 1 mg Given 03/25/2022 1:42 AM EST 1 mg Given 03/24/2022 5:23 PM EST 1 mg hydrOXYzine pamoate (Vistaril) capsule 25 mg 25 mg, Oral, Every 6 hours PRN, Starting on 03/22/22 at 1732, Until Thu03/26/22 at 2014, Routine, anxiety Given 03/26/2022 4:19 AM EST 25 mg Given 03/25/2022 5:42 PM EST 25 mg Given 03/25/2022 8:24 AM EST 25 mg ketamine (Ketalar) 10 mg in sodium chloride 0.9% 50 mL IVPB 10 mg, Intravenous, Every 8 hours, First dose (after last reorder) on Thu03/22/22 at 1800, Until Discontinued, at 112 mL/hr, Administer over 30 Minutes, Routine New Bag 03/26/2022 12:13 PM EST 10 m g 112 mL/hr New Bag 03/26/2022 3:33 AM EST 10 mg 112 mL/hr New Bag 03/25/2022 7:51 PM EST 10 mg 112 mL/hr ketorolac (Toradol) injection 15 mg 15 mg, Intravenous, Every 6 hours PRN, 2 doses, Starting on Thu03/25/22 at 0007, Until Thu03/26/22 at 2014, Routine, severe pain lactated Ringer's infusion 100 mL/hr, Intravenous, Continuous, Starting on 03/22/22 at 1730, Until 03/23/22 at 0340, Routine New Bag 03/22/2022 5:41 PM EST 100 mL/hr 100 mL /hr LORazepam (Ativan) tablet 1 mg 1 mg, Oral, Daily, First dose on 03/22/22 at 1730, Until Discontinued, Routine Given 03/26/2022 10:22 AM EST 1 mg Given 03/25/2022 8:23 AM EST 1 mg Given 03/24/2022 8:46 AM EST 1 mg ondansetron (Zofran) injection 4 mg 4 mg, Intravenous, Every 6 hours PRN, Starting on Thu03/22/22 at 1733, Until Thu03/26/22 at 2015, Routine, nausea, vomiting Given 03/25/2022 11:49 AM EST 4 mg Given 03/25/2022 5:46 AM EST 4 mg Given 03/24/2022 10:43 PM EST 4 mg oxyCODONE (Roxicodone) immediate release tablet 10 mg 10 mg, Oral, Every 6 hours PRN, Starting on Thu03/22/22 at 1732, Until Thu03/26/22 at 2015, Routine, severe pain Given 03/26/2022 4:43 PM EST 10 mg Given 03/26/2022 10:46 AM EST 10 mg Given 03/25/2022 5:42 PM EST 10 mg pancrelipase (Creon) 38830 units capsule 2 capsule, Oral, 3 times daily with meals, First dose on 03/22/22 at 1730, Until Discontinued, Routine Given 03/26/2022 12:15 PM EST 2 capsule s Given 03/26/2022 10:22 AM EST 2 capsules Given 03/25/2022 8:23 AM EST 2 capsules pantoprazole (Protonix) EC tablet 40 mg 40 mg, Oral, 2 times daily, First dose on 03/22/22 at 2100, Until Discontinued, Routine Given 03/26/2022 10:2 1 AM EST 40 mg Given 03/25/2022 8:21 PM EST 40 mg Given 03/25/2022 8:24 AM EST 40 mg polyethylene glycol (Miralax) packet 17 g 17 g, Oral, Daily, First dose on Thu03/24/22 at 0930, Until Discontinued, Routine Given 03/25/2022 8:23 AM EST 17 g Given 03/24/2022 9:46 AM EST 17 g pregabalin (Lyrica) capsule 300 mg 300 mg, Oral, 2 times daily, First dose on Thu03/22/22 at 2100, Until Discontinued, Routine Given 03/26/2022 10:22 AM EST 300 mg Given 03/25/2022 8:21 PM EST 300 mg Given 03/25/2022 8:24 AM EST 300 mg promethazine (Phenergan) injection 12.5 mg 12.5 mg, Intravenous, Every 4 hours PRN, Starting on 03/22/22 at 1733, Until Thu03/26/22 at 2015, Routine, nausea, vomiting, Restricted to patients refractory to ondansetron. When rapid onset is required and oral is insufficient or NPO Given 03/22/2022 9:40 PM EST 12.5 mg senna (Senokot) tablet 8.6 mg 8.6 mg, Oral, Nightly, First dose on 03/24/22 at 2100, Until Discontinued, Routine Given 03/25/2022 8:21 PM EST 8.6 mg Given 03/24/2022 8:40 PM EST 8.6 mg sodium chloride 0.9 % flush 10 mL 10 mL, Intravenous, Every 8 hours PRN, Starting on 03/22/22 at 1723, Until Thu03/26/22 at 2014, Routine, line care sodium chloride 0.9 % flush 10 mL 10 mL, Intravenous, As needed, Starting on 03/22/22 at 1723, Until Thu03/26/22 at 2014, Routine, line care venlafaxine XR (Effexor-XR) 24 hr capsule 150 mg 150 mg, Oral, Daily, First dose on 03/23/22 at 0900, Until Discontinued, Routine Given 03/26/2022 10:2 2 AM EST 150 mg documented in this encounter Active and Recently Administered Medications Times are shown in EST. Scheduled Medication Order 03/24/2022 03/25/2022 03/26/2022 acetaminophen (Tylenol) tablet 650 mg 650 mg, Oral, Every 6 hours scheduled, First dose on 03/22/22 at 1800, Until Discontinued, Routine 0100 (Given - Provider: Leta Sinclair)0535 (Given - Provider: Leta Sinclair)1104 (Given - Provider: Christine Wood RN)1723 (Given - Provider: Christine Wood RN) 0135 (Given - Provider: Jose Arango - Comment: pt was asleep)0629 (Given - Provider: Christine Wood RN - Comment: pt had oxycodone per mar and tylenol per mar as well)1149 (Given - Provider: Christine Wood RN)1742 (Given - Provider: Christine Wood RN) 0000 (Not Given - Provider: Jose Arango - Reason: Patient/family refused)0507 (Not Given - Provider: Jose Arango - Reason: Hold for condition: must add comment - Comment: pt didnt recieve last dose, see mar for time given)1215 (Given - Provider: Farida Herbert LPN)1800 (Canceled Entry - Provider: Automatic Discharge Provider - Comment: Automatically canceled at discontinue of medication order) dicyclomine (Bentyl) capsule 20 mg 20 mg, Oral, 4 times daily, First dose on 03/22/22 at 1800, Until Discontinued, Routine 0846 (Given - Provider: Christine Wood RN)1450 (Given - Provider: Christine Wood RN)1723 (Given - Provider: Christine Wood RN)2235 (Given - Provider: Jose Arango) 0824 (Given - Provider: Christine Wood RN)1500 (Given - Provider: Christine Wood RN)1742 (Given - Provider: Christine Wood RN)2200 (Not Given - Provider: Jose Arango - Reason: Patient/family refused) 1022 (Given - Provider: Farida Herbert LPN)1636 (Not Given - Provider: Farida Herbert LPN - Reason: Patient/family refused)1643 (Given - Provider: Farida Herbert LPN) diphenhydrAMINE (BENADryl) tablet 25 mg (COMPLETED) 25 mg, Oral, Once, 1 dose, On 03/24/22 at 0215, Routine 0212 (Given - Provider: Leta Sinclair) enoxaparin (Lovenox) syringe 40 mg 40 mg, Subcutaneous, Daily, First dose on 03/22/22 at 1730, Until Discontinued, Routine 0846 (Given - Provider: Christine Wood RN) 0823 (Given - Provider: Christine Wood RN) 1024 (Not Given - Provider: Farida Herbert LPN - Reason: Patient/family refused) ketamine (Ketalar) 10 mg in sodium chloride 0.9% 50 mL IVPB 10 mg, Intravenous, Every 8 hours, First dose (after last reorder) on 03/22/22 at 1800, Until Discontinued, at 112 mL/hr, Administer over 30 Minutes, Routine 0212 (Canceled Entry - Provider: Leta Sinclair - Comment: loss of IV access)0340 (New Bag - Provider: Leta Sinclair)1147 (New Bag - Provider: Christine Wood RN)193 (New Bag - Provider: Jose Arango) 0429 (New Bag - Provider: Jose Arango)1149 (New Bag - Provider: Christine Wood RN)1950 (New Bag - Provider: Jose Arango) 0333 (New Bag - Provider: Jose Arango)1213 (New Bag - Provider: Farida Herbert LPN)2000 (Canceled Entry - Provider: Automatic Discharge Provider - Comment: Automatically canceled at discontinue of medication order) LORazepam (Ativan) tablet 1 mg 1 mg, Oral, Daily, First dose on 03/22/22 at 1730, Until Discontinued, Routine 0846 (Given - Provider: Christine Wood RN) 0823 (Given - Provider: Christine Wood RN) 1022 (Given - Provider: Farida Herbert LPN) lurasidone (Latuda) tablet 40 mg 40 mg, Oral, Daily with breakfast, First dose on 03/23/22 at 0800, Until Discontinued, Routine 0847 (Not Given - Provider: Christine Wood RN - Reason: Patient/family refused) 0825 (Not Given - Provider: Christine Wood RN - Reason: Patient/family refused) 1024 (Not Given - Provider: Farida Herbert LPN - Reason: Patient/family refused) pancrelipase (Creon) 73454 units capsule 2 capsule, Oral, 3 times daily with meals, First dose on 03/22/22 at 1730, Until Discontinued, Routine 0848 (Not Given - Provider: Christine Wood RN - Reason: Patient/family refused)1147 (Given - Provider: Christine Wood RN)1723 (Given - Provider: Christine Wood RN) 0823 (Given - Provider: Christine Wood RN)1155 (Not Given - Provider: Chirstine Wood RN - Reason: Patient/family refused)1657 (Not Given - Provider: Christine Wood RN - Reason: Patient/family refused) 1022 (Given - Provider: Farida Herbert LPN)1215 (Given - Provider: Farida Herbert LPN)1730 (Canceled Entry - Provider: Automatic Discharge Provider - Comment: Automatically canceled at discontinue of medication order) pantoprazole (Protonix) EC tablet 40 mg 40 mg, Oral, 2 times daily, First dose on 03/22/22 at 2100, Until Discontinued, Routine 0846 (Given - Provider: Christine Wood RN)2040 (Given - Provider: Jose Arango) 08 (Given - Provider: Christine Wood RN)2020 (Given - Provider: Jose Arango) 102 (Given - Provider: Farida Herbert LPN) polyethylene glycol (Miralax) packet 17 g 17 g, Oral, Daily, First dose on 03/24/22 at 0930, Until Discontinued, Routine 0946 (Given - Provider: Christine Wood RN) 0823 (Given - Provider: Christine Wood RN) 1024 (Not Given - Provider: Farida Herbert LPN - Reason: Patient/family refused) pregabalin (Lyrica) capsule 300 mg 300 mg, Oral, 2 times daily, First dose on 03/22/22 at 2100, Until Discontinued, Routine 0846 (Given - Provider: Christine Wood RN)2039 (Given - Provider: Jose Arango) 08 (Given - Provider: Christine Wood RN)2020 (Given - Provider: Jose Arango) 102 (Given - Provider: Farida Herbert LPN) senna (Senokot) tablet 8.6 mg 8.6 mg, Oral, Nightly, First dose on 03/24/22 at 2100, Until Discontinued, Routine 2039 (Given - Provider: Jose Arango) 2020 (Given - Provider: Jose Arango) venlafaxine XR (Effexor-XR) 24 hr capsule 150 mg 150 mg, Oral, Daily, First dose on Thu03/23/22 at 0900, Until Discontinued, Routine 0848 (Not Given - Provider: Christine Wood RN - Reason: Patient/family refused) 0825 (Not Given - Provider: Christine Wood RN - Reason: Patient/family refused) 1022 (Given - Provider: Farida Herbret LPN) PRN Medication Order 03/24/2022 03/25/2022 03/26/2022 gi cocktail oral solution 30 mL 30 mL, Oral, 4 times daily PRN, Starting on 03/22/22 at 1731, Until Thu03/26/22 at 2015, Routine, heartburn, indigestion, cramping 0535 (Given - Provider: Leta Sinclair) HYDROmorphone (Dilaudid) tablet 1 mg (CANCELED) 1 mg, Oral, Every 8 hours PRN, Starting on 03/23/22 at 0130, Until Thu03/25/22 at 1132, Routine, severe pain 0211 (Given - Provider: Leta Sinclair)0946 (Given - Provider: Christine Wood RN)1723 (Given - Provider: Christine Wood RN) 0142 (Given - Provider: Jose Arango)0948 (Given - Provider: Christine Wood RN) hydrOXYzine pamoate (Vistaril) capsule 25 mg 25 mg, Oral, Every 6 hours PRN, Starting on 03/22/22 at 1732, Until Thu03/26/22 at 2014, Routine, anxiety 0535 (Given - Provider: Leta Sinclair)1104 (Given - Provider: Christine Wood RN) 0142 (Given - Provider: Jose Arango)0824 (Given - Provider: Christine Wood RN)1742 (Given - Provider: Christine Wood RN) 0419 (Given - Provider: Jose Arango) ketorolac (Toradol) injection 15 mg 15 mg, Intravenous, Every 6 hours PRN, 2 doses, Starting on Thu03/25/22 at 0007, Until Thu03/26/22 at 2014, Routine, severe pain 0456 (Not Given - Provider: Jose Arango - Reason: Patient/family refused) ondansetron (Zofran) injection 4 mg 4 mg, Intravenous, Every 6 hours PRN, Starting on 03/22/22 at 1733, Until Thu03/26/22 at 2014, Routine, nausea, vomiting 0845 (Given - Provider: Christine Wood RN)1618 (Given - Provider: Christine Wood RN)2243 (Given - Provider: Jose Arango) 0546 (Given - Provider: Jose Arango)1149 (Given - Provider: Christine Wood RN) oxyCODONE (Roxicodone) immediate release tablet 10 mg 10 mg, Oral, Every 6 hours PRN, Starting on 03/22/22 at 1732, Until Thu03/26/22 at 2014, Routine, severe pain 0316 (Given - Provider: Leta Sinclair)0847 (Given - Provider: Christine Wood RN)1616 (Given - Provider: Christine Wood RN)2235 (Given - Provider: Jose Arango - Comment: rates pain 11/02) 0550 (Given - Provider: Jose Arango)1149 (Given - Provider: Christine Wood RN)1742 (Given - Provider: Christine Wood RN) 1046 (Given - Provider: Farida Herbert LPN)1643 (Given - Provider: Farida Herbert LPN) promethazine (Phenergan) injection 12.5 mg 12.5 mg, Intravenous, Every 4 hours PRN, Starting on 03/22/22 at 1733, Until Thu03/26/22 at 2014, Routine, nausea, vomiting, Restricted to patients refractory to ondansetron. When rapid onset is required and oral is insufficient or NPO sodium chloride 0.9 % flush 10 mL(Linked Group 1) 10 mL, Intravenous, Every 8 hours PRN, Starting on 03/22/22 at 1723, Until Thu03/26/22 at 2014, Routine, line care sodium chloride 0.9 % flush 10 mL(Linked Group 1) 10 mL, Intravenous, As needed, Starting on 03/22/22 at 1723, Until Thu03/26/22 at 2014, Routine, line care Linked Groups Order Group 1: Insert peripheral IV (COMPLETED) Once, On 03/22/22 at 1724, For 1 occurrence And Saline lock IV (COMPLETED) Once, On 03/22/22 at 1724, For 1 occurrence And sodium chloride 0.9 % flush 10 mLJump to med 10 mL, Intravenous, Every 8 hours PRN, Starting on 03/22/22 at 1723, Until 03/26/22 at 2014, Routine, line care And sodium chloride 0.9 % flush 10 mLJump to med 10 mL, Intravenous, As needed, Starting on 03/22/22 at 1723, Until Thu03/26/22 at 2014, Routine, line care documented in this encounter Additional Health Concerns Assessment Noted Time A fall risk assessment has been complete d for the patient 11/21/2020 2:30 PM EDT documented as of this encounter Care Teams Hourly Associate Relationship Specialty Start Date End Date Elmo Escobar MD PCP - General 10/18/20 01/05/23 documented as of this encounter
--- OUTSIDE RECORDS SUMMARY | 2024-02-03 15:22 | XMS_ITS | Encounter Summary ---
Author Organization Healthcare Address [address] [place] [address] Care Team Providers Care Circulating Nurse Name Role Phone Elmo Escobar MD Primary Care Provider [phone] Encounter Details Date Type Department Care Team (Latest Contact Info) Description 06/11/2022 Travel Social History Tobacco Use Types Packs/Day [...] drink first t caleb in the morning (EYE-SPECIAL SERVICES COORDINATOR) to steady your nerves or to [...] documented as of this encounter Care Teams Circulating Nurse Relationship Specialty Start Date End Date Elmo Escobar MD PCP - General 10/18/20 01/05/23 documented as of this encounter
--- OUTSIDE RECORDS SUMMARY | 2024-02-03 15:22 | XMS_ITS | Encounter Summary ---
Author Organization Healthcare Address [address] [place] [address] Care Team Providers Care President Finance Company Name Role Phone Elmo Escobar MD Primary Care Provider [phone] Encounter Details Date Type Department Care Team (Latest Contact Info) Description 06/14/2022 Travel Social History Tobacco Use Types Packs/Day [...] drink first t caleb in the morning (EYE-LINE CREWMAN) to steady your nerves or to get [...] documented as of this encounter Care Teams President Finance Company Relationship Specialty Start Date End Date Elmo Escobar MD PCP - General 10/18/20 01/05/23 documented as of this encounter
--- OUTSIDE RECORDS SUMMARY | 2024-02-03 15:23 | XMS_ITS | Encounter Summary ---
Author Organization [facility] Address [address] [place] [address] Care Team Providers Care Solar Sales Rep Name Role Phone Elmo Escobar MD Primary Care Provider [phone] Encounter Details Date Type Department Care Team (Latest Contact Info) Description 07/28/2021 Travel Social History Tobacco Use Types Packs/Day Years Used Date Smoking Tobacco: Every Day Cigarettes 0.5 15 Smokeless Tobacco: Never Alcohol Use Standard Drinks/Week Comments Not Currently 0 (1 standard drink = 0.6 oz pure alcohol) Alcoholic Drinks/day: Minimum alcohol consumption PHQ-2 Answer Date Recorded Patient Health Questionnaire-2 Score 2 11/21/2020 Comments No Sex and Gender Information Value [...] suspected to have Coronavirus/COVID-19? No / Unsure 07/28/2021 1:55 PM EDT documented as of this encounter Plan of Treatment Not on file documented as of this encounter Visit Diagnoses Not on filedocumented in this encounter Additional Health Concerns Assessment Noted Time A fall risk assessment has been complete d for the patient 11/21/2020 2:30 PM EDT documented as of this encounter Care Teams Solar Sales Rep Relationship Specialty Start Date End Date Elmo Escobar MD PCP - General 10/18/20 01/05/23 documented as of this encounter
--- OUTSIDE RECORDS SUMMARY | 2024-02-03 15:23 | XMS_ITS | Encounter Summary ---
Author Organization Healthcare Address [address] [place] [address] Care Team Providers Care Outpatient Coding Specialist Name Role Phone Elmo Escobar MD Primary Care Provider [phone] Reason for Visit * Reason Comments Abdominal Pain * Auth/Cert (Routine) Specialty Diagnoses / Procedures Referred By Contac t Referred To Contact Diagnoses Abdominal pain Alessia Joe MD [address] [place] [address] Phone: tel: fax: [facility] [address] [place] [address] Phone: tel: Referral ID Status Reason Start Date Expiration Date Visits Re quested Visits Authorized [id number] 1 1 Encounter Details Date Type Department Care Team (Latest Contact Info) Description 03/20/2022 12:55 PM EST - 03/22/2022 3:05 PM EST Hospital Encounter [facility] [address] 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 07/21/19 23 pancrelipase, Xhm-Gtwx-Ttmt, (Creon) [id number] units capsule Take 2 capsules by mouth [...] encounter Miscellaneous Notes * Discharge Summary - Tereza Escalera MD - 03/22/2022 3:05 PM EST Hospitalization Admit Date/Time: 03/20/2022 12:55 PM Admitting Attending: Alessia Joe Discharge Date: 03/22/2022 Discharge Attending Physician: Alessia Joe Md PCP name and Address: Elmo Escobar MD [address] [place] [address] / [place] [address] Referring provider name and address: No referring [...] She was admitted for possible pancreatitis flare. 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 - Concerned that patient's continued use of opioids may be worsening her symptoms, will try to avoid increasing opioid pain regimen at this time, offered IV ketamine and IV toradol for additional pain management however patient refused these. - Recommend continued outpatient follow-up with GI [...] day if needed for severe pain. pancrelipase (Yia-Kzma-Palr) [id number] units capsule Commonly known as: Creon Take [...] each day. Where to Get Your Medications Information about where to get these medications is not yet available Ask your nurse or doctor about these medications Latuda 40 MG tablet pancrelipase (Vjf-Eiat-Dyil) [id number] units capsule venlafaxine XR 150 MG 24 hr capsule Discharge Diagnosis Medical Problems Active and Resolved Hospital Problems Hospital * (Principal) Abdominal pain Post Discharge Instructions Follow-up with your outpatient GI physician Follow-up with your outpatient pain management clinic Outpatient Follow-Up No future appointments. Test Results Pending At Discharge Pertinent Physical Exam At Time of Discharge Physical Exam Constitutional: General: She is not in acute distress. Appearance: Normal appearance. Eyes: General: No scleral icterus. Conjunctiva/sclera: Conjunctivae normal. Cardiovascular: Rate and Rhythm: Normal rate and regular rhythm. Pulmonary: Effort: Pulmonary effort is normal. No respiratory distress. Abdominal: General: There is no distension. Palpations: Abdomen is soft. Tenderness: There is abdominal tenderness. Neurological: Mental Status: She is alert. Discharge Disposition/Condition Disposition: Home Condition: Stable (s/sx potential problems absent or manageable) I spent >30 minutes of patient care and instruction time in preparation for this discharge. Cosigned by Alessia Joe MD at 03/27/2022 4:37 PM EST Associated attestation - Alessia Joe MD - 03/27/2022 4:37 PM EST I saw and evaluated the patient with the resident/fellow. I discussed the case with the resident/fellow and agree with the findings and plan as documented. * Hospital Course - Tereza Escalera MD - 03/22/2022 2:16 PM EST Rosibel Gayle is a 36 y.o. female with a PMH of GERD, pancreatitis, HTN, fibromyalgia, anxiety, depression who presented on 03/20 with worsening epigastric abdominal pain. Patient has a history of chronic pancreatitis with multiple ED visits for acute exacerbations of this pain. She was admitted for possible pancreatitis flare. 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 - Concerned that patient's continued use of opioids may be worsening her symptoms, will try to avoid increasing opioid pain regimen at this time, offered IV ketamine and IV toradol for additional pain management however patient refused these. - Recommend continued outpatient follow-up with GI as previously scheduled per patient as well as follow-up with pain management * Progress Notes - Tereza Escalera MD - 03/22/2022 12:02 PM EST Images from the original note were not included. Hospital Medicine Progress Note Subjective Length of stay: 2 days Brief Patient Summary: 36 y.o. female with a PMH of GERD, pancreatitis, HTN, fibromyalgia, anxiety, depression who presents with worsening acute on chronic epigastric abdominal pain possibly due to pancreatitis flare vs chronic functional abdominal pain Edited by: Shante English MD at 03/20/2022 6417 Subjective No acute events overnight. This morning appeared comfortable prior to my entering room. Then proceeded to become tearful and state she is in significant pain. Patient states we are being unfair only giving dilaudid every 8 hours and that we do not care about her pain or suffering. She states that on prior admissions she was also given IV dilaudid every 2 hours for the first few days which greatlyhelped her get over the pain. I vocalized understanding but also worry that IV pain medications would not help to solve the issue and may actually make her pain worse. Review of Systems Review of Systems Constitutional: Negative for chills and fever. Respiratory: Negative for cough and shortness of breath. Cardiovascular: Negative for chest pain and palpitations. Gastrointestinal: Positive for abdominal pain and nausea. Objective Objective Last Recorded Vitals Blood pressure 115/77, pulse 75, temperature 36.7 ??C (98 ??F), temperature source Oral, resp. rate14, height 1.651 m (5' 5 ), weight 109 kg (240 lb 1.3 oz), SpO2 98 %, not currently . Physical [...] Affect: Affect is tearful. Behavior: Behavior normal. Relevant Results Labs in [...] Assessment & Plan Principal Problem: Abdominal pain Rosibel Gayle is a 36 y.o. female with PMH as per above who presents with acute on chronic abdominal pain Acute on chronic abdominal pain likely due to functional abdominal pain complicated by opioid hyperalgesia in the setting of usp opiate use - Ddx includes acute pancreatitis [...] 1mg po q8h to avoid continued IV painmedications - IVF 100cc/hr for 10 hours - Switch to IV zofran and IV phenergan prn for nausea - will continue Full Liquid diet for now, if patient tolerating diet overnight can escalate to Regular diet tomorrow. - Will continue multimodal pain control with scheduled tylenol, Bentyl, pregabalin, venlafaxine, prn gi cocktails, prn oxycodone with prn dilaudid for breakthrough pain. - Concerned that patient's continued use of opioids may be worsening her symptoms, will try to avoid increasing opioid pain regimen at this time, offered IV ketamine and IV toradol for additional pain management however patient is refusing at this time. Chronic Medical Conditions: Pancreatic insufficiency - continue home Creon GERD - continue home pantoprazole Mood - continue home venlafaxine, latuda Anxiety - continue home Ativan Fluids: MIVF 100cc/h 10h DVT Ppx: PLOV Diet: Full liquid diet Code status: Full Code Tereza Escalera MD Internal Medicine PGY-2 Cosigned by Alessia Joe MD at 03/22/2022 4:38 PM EST Associated attestation - Alessia Joe MD - 03/22/2022 4:38 PM EST I saw and evaluated the patient. I discussed the case with the resident/fellow and agree with the findings and plan as documented. Patient continues to endorse uncontrolled abdominal pain. I suspect pt pain is from chronic pancreatitis as well as functional pain. She has underlying anxiety and depression, which might be contributing as well to her perception of pain. She has had multiple CT A/P with most recent one 2 weeks agoat OSH per patient and has been negative, has been seen by GI here as well as outside GI. Per discussion with her, she has been planned to get EGD early Mar. Patient has had multiple ED visits with acute on chronic pain here including admissions. Reviewed prior charts. Palliative care had also beencontacted during one of those admissions and recommendations were to do more multimodal pain control. I discussed with patient that her lot of her pain is chronic in nature and we are not melanie to fix it quickly. Discussed with her that she needs adequate outpatient pain management as per my conversations with her, her outpatient pain regimen has not been controlling her pain. She was also recommended pain pump at some point, but she states she does not want it. She stated that her oxycodone was r ecently increased to 7.5mg by per PCP. I explained to her that she is on higher dose here and she gets frustrated and agitated stating that it does not work and starts crying. Gave her other options of toradol, IV ketamine and she stated toradol does not work and ketamine makes her see thing. Tomeka been on IV ketamine last couple of admissions and seems to have tolerated that well at least per documentation. Pt states in the past admissions she got dilaudid every 2hrs prn and that helped control her pain. I explained to patient she would not get dilaudid as outpatient for pain control andwe are trying to stay with oral pain medications. She is expecting that her pain might go away after couple days of dilaudid and she will feel better. Even after multiple discussions, she is fixated on quick pain control and any other options other than dilaudid that I have proposed, she so far hasnot agreed to it stating it does not work. Pt is expecting a quick fix to her pain control, which unfortunately is not possible given chronicity of her pain. I have discussed with her to let us know if she is willing to try other options such as toradol, ketamine for pain control. * Consults - Jadon Brown - 03/21/2022 3:30 PM EST Pastoral Care Note I visited with the patient and offered support and encouragement. Pastoral Care is happy to follow up PRN. Referral From: Water Vessel Captain initiated Pastoral Care Provided For: Patient Patient Profile: Consult Reasons: Initial visit Spiritual Assessment: Spiritual Needs: Emotional support Spiritual Issues: Chronic pain/ illness Interventions: Interventions Provided: Emotional support Pastoral Care Outcomes: Patient Outcomes: Is knowledgeable about Sounding Device Operator Services * Progress Notes - Shante English MD - 03/21/2022 1:45 PM EST Images from the original note were not included. Hospital Medicine Progress Note Subjective Length of stay: 1 day Brief Patient Summary: 36 y.o. female with a PMH of GERD, pancreatitis, HTN, fibromyalgia, anxiety, depression who presents with worsening acute on chronic epigastric abdominal pain possibly due to pancreatitis flare vs chronic functional abdominal pain Edited by: Shante English MD at 03/20/2022 0237 Subjective After admission last night patient was given 0.25 dose of dilaudid with 10mg of po oxycodone after which she became drowsy with depressed respiratory rate and required 2L NC. Despite this patient wasasking for more pain medication immediately after her dose. This morning primary team explained to patient that we need to be cautious with continued opioid treatment given her response in the ED. She states she has never had that reaction in the past. Upon further chart review following admission patient has been seen multiple times at for acute chronic abdominal pain and extensive work-up has been negative. Per patient report she has had a recent CT Abdomen Pelvis at an outside hospital without acute findings. Patient has had repeated imaging, EGD, and lab testing without discovering an etiology for her pain. Patient has been admitted multiple times and given IV pain medication which she is repeatedly requesting this admission. Due to previous negative work-up possible that pain is secondary to functional abdominal pain which may be complicated by opioid hyperalgesia. In that case would like to minimize opioid medication during this admission. On evaluation patient is in tears saying that she doesn't understand why we are not giving her moreIV pain medications. At previous admission (discharged 05/2021) ketamine was used to avoid IV pain meds. Patient states that this medication makes her feel bad and does not want to try this even at a low dose. She does not want to try a multimodal approach to pain control saying that tylenol, Bentyland GI cocktails do not work for her. Review of Systems Review of Systems Constitutional: Negative for chills and fever. Respiratory: Negative for cough and shortness of breath. Cardiovascular: Negative for chest pain and palpitations. Gastrointestinal: Positive for abdominal pain and nausea. Objective Objective Last Recorded Vitals Blood pressure 108/73, pulse 73, temperature 36.4 ??C (97.5 ??F), resp. rate 16, height 1.651 m (5'5 ), weight 109 kg (240 lb 1.3 oz), SpO2 95 %, not currently . Physical Exam Constitutional: [...] and Affect: Mood normal. Behavior: Behavior normal. Relevant Results Labs in last 18 hours CBC WBC 5.07 Hb 11.4 Plt 314 Hct 36.0 ANC ?? INR ??, PTT ??, Anti-Xa ?? BMP Na 142 Cl 106 BUN 13 Glu 103 (H) K 4.4 Co2 27 Cr 1.06 Ca 8.9 iCa ?? Mg ??, Phos ?? Lactate ?? LFT AST 35 (H) AlkPhos 98 T Prot ?? ALK 43 (H) Bili <0.2 (L) Alb ?? D.Bili ?? IMAGING (past 24h): Assessment/Plan Assessment & Plan Principal Problem: Abdominal pain Rosibel Gayle is a 36 y.o. 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 - Will continue multimodal pain control with scheduled tylenol, Bentyl, pregabalin, venlafaxine, prn gi cocktails, prn oxycodone with prn dilaudid for breakthrough pain. - Concerned that patient's continued use of opioids may be worsening her symptoms, will try to avoid increasing opioid pain regimen at this time, offered IV ketamine for additional pain management however patient is refusing at this time. Chronic Medical Conditions: Pancreatic insufficiency - continue home Creon GERD - continue home pantoprazole Mood - continue home venlafaxine, latuda Anxiety - continue home Ativan Fluids: MIVF 100cc/h 10h DVT Ppx: PLOV Diet: Full liquid diet Code status: Full Code Dispo: Admit to Floor Electronically Signed by: Shante English MD - 03/21/2022 - 1:46 PM Cosigned by Alessia Joe MD at 03/21/2022 4:32 PM EST Associated attestation - Alessia Joe MD - 03/21/2022 4:32 PM EST I saw and evaluated the patient with the resident/fellow. I discussed the case with the resident/fellow and agree with the findings and plan as documented. Chart review done of last few admissions. Pt with hx of chronic abdominal pain requiring multiple admissions for acute on chronic pain like this admission. Limit IV narcotics. Continue multimodal pain control with po oxy, dilaudid, pregablain, tylenol. Patient with hx of duodenal ulcers with priro NSAID use. If needed can trial Ketamine IVP, if pt agreeable. She deferred IV ketamine today. Has received that in past admissions. Continue IVFs, antiemetics * Progress Notes - Suzi Shields - 03/21/2022 10:13 AM EST Case Management Adult Initial Progress Note Rosibel Galye 36 y.o. female CSN: [id number] Admission: 03/20/2022 12:55 PM Primary Problem: Abdominal pain Franchise Manager reviewed chart and spoke with patient to complete this Initial Case Management Assessment. PCP: Elmo Escobar MD Emergency Contact: Extended Emergency Contact Information Primary Emergency Contact: Asiya Flores Address: [address] [place] of [facility] Mobile Relation: Mother Preferred language: Bengali Cotton Sampler needed? No Insurance: Primary Visit Coverage Payer Plan Sponsor Code Group Number Group Name ANTHEM MEDICAID ANTHEM MEDICAID [id number] Primary Visit Coverage Subscriber Subscriber ID Subscriber Name Subscriber SSN Subscriber Address [id number] ROSIBEL GAYLE [id number] [address] [place] [address] Patient information: Daily Living Activities: Functional Status: Independent Living Arrangements: Spouse/Significant other, Children, Parent/Gaurdian Type of Residence: Private residence [address] [place] [address] Smoker in the Home?: Yes Current DME: Equipment Currently Used at Home: none Income Information: Income Source: Unemployed Income/Expense Information: Expenses exceed income Current Resources Utilized: [employer] [place] Housing Circumstances-Z Codes: Housing Circumstances (select all that apply): Low Income (101-300% Federal Poverty Guidlines) - Z596 Patient Referred to: Anticipated Discharge Date: TBD Patient's Discharge Goal: Assistance Available at Discharge: Discharge Transport: Pt family will give her a ride. Follow Up Transport: Pt family transport due to license being suspended Home Health / Home Infusion / Outpatient Dialysis Services: None reported. Living Will/Advance Directive/Power of Religious Education Coordinator /Guardian: N/A Additional Comments: Pt gets her meds from [facility] and has had COVID vaccine & booster Suzi Shields * Nursing Note - Raiza Mauro RN - 03/20/2022 6:54 PM EST Ms Gayle arrived in her room via ED stretcher and walked to the bed in her room without problem. VSS - see flowsheet. She does c/o epigastric area abdominal pain that she rates a 10/10 despite receiving pain medication in the ED. notified of arrival and her orders were noted. 1850: notified of pt's continued c/o severe pain. She also stated she had not taken her anxiety med today so Vistaril PRN was ordered. She denies any feelings of N&V when asked about this. * ED Notes - Gela Joseph RN - 03/20/2022 5:50 PM EST NCT Desiree was getting vitals and pt asked for more pain meds but seemed very sleepy and had mildly slurred speech. NCT put pt on sp02 monitoring and counted her respirations and recorded a RR of 8and stated that sp02 briefly dropped to 89%. Pt placed on 2 liters NC. NCT also moved pt's purse which contains her home percocet across the room and puts the bed alarm on. Team notified. Gela Joseph RN 03/20/221820 * H&P - Shante English MD - 03/20/2022 4:24 PM ESTAssociated Order(s): Consult to [facility] Images from the original note were not included. Consult to [facility] Consult performed by: Shante English MD Consult ordered by: Carter Donis MD [facility] Medicine History & Physical Subjective 03/20/2022 Chief Complaint: Chief Complaint Patient presents with [...] she has plans to see a new Retail Consultant in [place] for an EGD in March. Notably she does report a history of cholecystectomy. She denies any other abdominal procedures and denies any history of IBS or IBD. In the ED patient was hemodynamically stable, labs were notable for mildly elevated transaminitis, lipase wnl, lactate 1.4. Patient was given morphine which she states improved her pain but did not last long enough. Past Medical History Past Medical History: Diagnosis [...] per week Types: Marijuana Comment: daily use Smokes 1ppd Travel History Travel Screening Question Response In [...] last month? No Travel History Travel since 02/17/22 No documented travel since 02/17/22 Immunizations Immunization History Administered Date(s) Administered Influenza, injectable, quadrivalent, preservative free 11/21/2019, 12/27/2020 Moderna COVID-19 Vaccine (Veterinary Laboratory Technician) 12+ years 06/11/2020, 07/05/2020 [employer] COVID-19 Vaccine (Purple Cap) 12+ 02/10/2021 Allergies Droperidol and Tramadol Home Medications Current Outpatient Medications Medication Instructions acetaminophen (TYLENOL) 1,000 mg, Oral, Every 6 hours PRN ibuprofen 400 mg, Oral, 4 times daily Latuda 40 mg, Oral, Daily with breakfast LORazepam (ATIVAN) 1 mg, Oral, Daily naloxone (NARCAN) 4 mg, Nasal, As needed, Call 911. Give 4 mg (1 spray) into one nostril. Repeat every 2-3 minutes as needed, alternating nostrils, until medical assistance arrives. oxyCODONE (ROXICODONE) 5 mg, Oral, Daily PRN, Take one tablet by mouth three times a day to four times a day pancrelipase, Ghz-Gwpj-Xuzd, (Creon) [id number] units capsule 2 capsules, Oral, 3 times daily withmeals pantoprazole (PROTONIX) 40 mg, Oral, 2 times daily, Do not crush, chew, or split. pregabalin (LYRICA) 300 mg, Oral, 2 times daily promethazine (PHENERGAN) 25 mg, Oral, Every 6 hours PRN venlafaxine XR (EFFEXOR-XR) 150 mg, Oral, Daily Review of Systems Review of Systems Constitutional: Negative for chills and fever. Respiratory: Negative for cough and shortness of breath. Cardiovascular: Negative for chest pain and palpitations. Gastrointestinal: Positive for abdominal pain, diarrhea, nausea and vomiting. Negative for constipation. Skin: Negative for rash and wound. Neurological: Negative for dizziness, light-headedness and headaches. All other systems reviewed and are negative. Objective Last Recorded Vitals Blood pressure 121/87, pulse 84, temperature 36.8 ??C (98.3 ??F), temperature source Oral, resp. rate 16, height 1.651 m (5' 5 ), weight 109 kg (240 lb 1.3 oz), SpO2 100 %, not currently . Physical Exam Constitutional: General: She is in acute distress. Appearance: She is obese. HENT: Head: Normocephalic and atraumatic. Eyes: Extraocular [...] Labs in last 18 hours CBC WBC 5.75 Hb 11.8 Plt 315 Hct 37.1 ANC 3.17 INR ??, PTT ??, Anti-Xa ?? BMP Na 139 Cl 102 BUN 7 Glu 92 K 4.4 Co2 27 Cr 0.69 Ca 9.4 iCa ?? Mg ??, Phos ?? Lactate ?? LFT AST 48 (H) AlkPhos 107 (H) T Prot 6.8 ALK 56 (H) Bili <0.2 (L) Alb ?? D.Bili ?? IMAGING (past 24h): Assessment/Plan Assessment/ Plan Principal Problem: Abdominal pain Rosibel Gayle is a 36 y.o. female with PMH as per above who presents with acute on chronic abdominal pain Acute on chronic abdominal pain 2/2 possible pancreatitis flare - Ddx includes acute pancreatitis flare, choledocolithiasis, constipation, IBS - Patient has extensive history of chronic abdominal pain requiring multiple ED visits over the last year - Patient reports that she has had removal of her gallbladder making choledocholithiasis unlikely - Labs notable for mildly elevated AST/ALT/alk phos, lipase wnl, lacate wnl - Considered obtaining CT Abdomen Pelvis for visualization of pancreatic inflammation however this would not 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 PLAN: - continue pain control with oxycodone 10mg q6h prn, Dilaudid 0.25mg q8h prn for breakthrough pain - IVF 100cc/hr for 10 hours - IV zofran prn nausea - will order Full Liquid diet for now, if patient tolerating diet overnight can escalate to Regulardiet tomorrow. Chronic Medical Conditions: Pancreatic insufficiency - continue home Creon GERD - continue home pantoprazole Mood - continue home venlafaxine, latuda Fluids: MIVF 100cc/h 10h DVT Ppx: PLOV Diet: Full liquid diet Code status: Full Code Dispo: Admit to Floor Electronically Signed by: Shante English MD - 03/20/2022 - 4:24 PM Cosigned by Alessia Joe MD at 03/20/2022 5:26 PM EST Associated attestation - Alessia Joe MD - 03/20/2022 5:26 PM EST I saw and evaluated the patient. I discussed the case with the resident/fellow and agree with the findings and plan as documented. Had CT A/P 2 weeks ago at OSH ED per patient and was okay. Per chart review has had multiple ED visits with acute on chronic abdominal pain. Pt with mildly elevated lipase and mild transaminitis and mildly elevated alk phos on labs today. Bili okay. Will treat as acute on chronic pancreatitis with IV fluids, antiemetics, Pain control. Will increase home oxycodone to 10mg and do dilaudid 0.25 q8hrs prn. * ED Provider Notes - Carter Donis MD - 03/20/2022 12:49 PM EST HPI Chief Complaint Patient presents with Abdominal Pain Rosibel Gayle is a 36 y.o. female w/ a hx of GERD, pancreatitis, HTN, fibromyalgia, anxiety, depression, CCY, and an ERCP who presents to the ED complaining of epigastric and LUQ abdominal pain since yesterday morning at 07:00 AM with her feeling nauseated as well since she ate some fried pickles. The patient reports that her nausea and pain has only gotten worse with her rating her pain as 10/10 and states that her pain is radiating into her mid-back and that I'm pretty positive that I am having a pancreatitis attack . She states that she was able to eat yesterday but has not been able to today with her having vomited twice since this morning. She states that she has increased pain in her abdomen when she takes a deep breath but does not otherwise have any chest pain. She states thatshe has an ERCP schedule on 04/02/22. Denies any ESPINOZA, cough, chills, fever, diarrhea, constipation, melena, vision changes, dizziness, or any urinary changes. Arnot Coma Scale Score: 15 Patient History Past [...] are negative. Physical Exam ED Triage Vitals [03/20/22 1254] Temp Heart Rate Resp BP 36.8 ??C (98.3 ??F) 84 16 121/87 SpO2 Temp Source Heart Rate Source Patient Position 100 % Oral -- Sitting BP Location FiO2 (%) Right arm -- Physical Exam Vitals and nursing note reviewed. Constitutional: General: She is in acute distress (Appears to be in discomfort secondary to her epigastric and LUQ abdominal pain.). Appearance: She is well-developed. She is obese. She is ill-appearing. She is not toxic-appearing or diaphoretic. HENT: Head: Normocephalic and atraumatic. Nose: Nose normal. No congestion or rhinorrhea. Mouth/Throat: Mouth: Mucous membranes are moist. Pharynx: No pharyngeal swelling, oropharyngeal exudate or posterior oropharyngeal erythema. Eyes: General: No scleral icterus. Right eye: No discharge. Left eye: No [...] Palpations: Abdomen is soft. There is no fluid wave. Tenderness: There is abdominal tenderness in the epigastric area and left upper quadrant. There is no right CVA tenderness, left CVA tenderness, guarding or rebound. Musculoskeletal: General: No swelling. Cervical back: Normal range of motion and neck supple. No rigidity or tenderness. Right lower leg: No edema. Left lower leg: No edema. Lymphadenopathy: Cervical: No cervical adenopathy. Skin: General: Skin is warm and dry. Capillary Refill: Capillary refill takes less than 2 seconds. Coloration: Skin is not cyanotic, jaundiced or pale. Findings: No erythema or rash. Neurological: General: No focal deficit present. Mental Status: She is alert and oriented to person, place, and time. Mental status is at baseline. Cranial Nerves: No cranial nerve deficit. Sensory: No sensory deficit. Motor: No weakness. Psychiatric: Mood and Affect: Mood normal. Mood is not anxious or depressed. ED Course & MDM ED Course as of 03/21/[address] [facility] Mar 20, 2022 1254 Reviewed recent OP Surg note, shows h/o cholelithiasis s/p cholecystectomy in 2012, obesity, bipolar depression, anxiety, fibromyalgia, de estella choledocholithiasis s/p ERCP in april [ER] 1332 EKG now - STAT (adult) No STEMI to my independent review [ER] 1351 CBC and Differential [ER] 1351 Lactate: 1.4 [ER] 1423 Lipase(!): 89 [ER] 1423 Test: Negative [ER] 1424 Creatinine: 0.69 [ER] 1424 BUN/Creatinine Ratio: 10 [ER] ED Course User Index [ER] Carter Donis MD Clinical Impressions as of 03/21/22 0843 Epigastric pain ED Disposition: Admit Medical Decision Making Patient arrives with acute on chronic upper abdominal pain with nausea and vomiting. Reviewed recent outpatient surgical note notable for plans for EUS and possible MRCP ERCP. She is quite tender upon arrival, appears uncomfortable but with stable and reassuring vital signs. Differential includes pancreatitis, gastritis, ulcerative disease, gastric erosions, colitis, diverticulitis. Laboratory studies reassuring at this time outside of mild elevation in lipase and mild elevation in liver enzymes. Only minimal improvement after therapy in the ED, discussed case with Internal Medicine who agrees to admit for further care. Amount and/or Complexity of Data Reviewed Independent Historian: parent Details: Details severity of symptoms External Data Reviewed: notes. Labs: ordered. Decision-making details documented in ED Course. ECG/medicine tests: ordered and independent interpretation performed. Decision- making details documented in ED Course. Discussion of management or test interpretation with external provider(s): IM - TBA Risk Parenteral controlled substances. ED Prescriptions None This documentation was recorded by Chet Banks acting as a scribe in my presence, MD Donis, atthe time of the encounter and accurately reflects the service I personally performed and the decisions made by me. This note was dictated to me, Chet Banks, acting as a scribe for MD Donis. Carter Donis MD 03/21/22 0845 * ED Triage Notes - Carlton Sr RN - 03/20/2022 12:49 PM EST Pt complains of LUQ pain radiating to back with NV began last night rating 10/10. Stated has an EDGscheduled 04/22/22. * Progress Notes - Kayla Ramos MD - 03/20/2022 12:49 PM EST I received sign-out and accepted care of this patient from the departing Drs: Gagandeep at 1500. Please see the primary providers??? note for complete elements of the history, physical exam, and ED course. Illness Severity: Stable Patient Summary: Rosibel Gayle is a 36 y.o. female with a PMHx of Past Medical History: Diagnosis Date Anxiety Arthritis Depression Fibromyalgia GERD (gastroesophageal reflux disease) Hypertension Nicotine dependence Obesity Pancreatitis presented to the ED chronic pancreatitis. Most recent vital signs: Visit Vitals BP 121/87 (BP Location: Right arm, Patient Position: Sitting) Pulse 84 Temp 36.8 ??C (98.3 ??F) (Oral) Resp 16 Ht 1.651 m (5' 5 ) Wt 109 kg (240 lb 1.3 oz) SpO2 100% BMI 39.95 kg/m?? OB Status Having periods Smoking Status Every Day BSA 2.24 m?? Lab and imaging results: reviewed Action plan (To Do): Pending IM admission. Disposition: Admitted to IM. ED Course as of 03/20/22 1507 [facility] Mar 20, 2022 1254 Reviewed recent OP Surg note, shows h/o cholelithiasis s/p cholecystectomy in 2012, obesity, bipolar depression, anxiety, fibromyalgia, de estella choledocholithiasis s/p ERCP in april [ER] 1332 EKG now - STAT (adult) No STEMI to my independent review [ER] 1351 CBC and Differential [ER] 1351 Lactate: 1.4 [ER] 1423 Lipase(!): 89 [ER] 1423 Test: Negative [ER] 1424 Creatinine: 0.69 [ER] 1424 BUN/Creatinine Ratio: 10 [ER] ED Course User Index [ER] Carter Donis MD documented in this encounter Plan of Treatment Not on file documented as of this encounter Procedures Procedure Name Priority Date/Time Associated Diagnosis Comments COMPREHENSIVE METABOLIC PANEL, PLASMA Routine 03/22/2022 3:29 AM EST ASPARTATE AMINOTRANSFERASE, PLASMA Add-On 03/21/2022 2:32 AM EST ALANINE AMINOTRANSFERASE, PLASMA Add-On 03/21/2022 2:32 AM EST CBC W/O DIFFERENTIAL Routine 03/21/2022 2:32 AM EST ALKALINE PHOSPHATASE, PLASMA Add-On 03/21/2022 2:32 AM EST TOTAL BILIRUBIN, PLASMA Add-On 03/21/2022 2:32 AM EST BASIC METABOLIC PANEL, PLASMA Routine 03/21/2022 2:32 AM EST SARS COV2 COVID 19/INFLUENZA A, B STAT 03/20/2022 4:59 PM EST LACTATE, VENOUS STAT 03/20/2022 1:43 PM EST CBC WITH AUTO DIFFERENTIAL STAT 03/20/2022 1:43 PM EST TEST QUALITATIVE PLASMA STAT 03/20/2022 1:43 PM EST LIPASE, PLASMA STAT 03/20/2022 1:43 PM EST COMPREHENSIVE METABOLIC PANEL, PLASMA STAT 03/20/2022 1:43 PM EST URINALYSIS WITH REFLEX MICROSCOPIC STAT 03/20/2022 1:23 PM EST ECG ADULT STAT 03/20/2022 1:17 PM EST documented in this encounter Results * (ABNORMAL) Comprehensive metabolic panel (03/22/2022 3:29 AM EST) Glucose, Plasma 118(H) 74 - 99 mg/dL 03/22/2022 4:19 AM EST [facility] BUN, Plasma 9 7 - 21 mg/dL 03/22/2022 4:19 AM EST [facility] Creatinine, Plasma 0.72 0.60 - 1.10 mg/dL 03/22/2022 4:19 AM [facility] BUN/Creatinine Ratio 13 03/22/2022 4:19 AM [facility] Sodium, Plasma 139 136 - 145 mmol/L 03/22/2022 4:19 AM [facility] Potassium, Plasma 4.5 3.7 - 4.8 mmol/L 03/22/2022 4:19 AM [facility] Comment:Reference range for Serum potassium is 0.2 to 0.5 mmol/L higher than Plasma range. Chloride, Plasma 102 97 - 107 mmol/L 03/22/2022 4:19 AM [facility] CO2, Plasma 28 22 - 29 mmol/L 03/22/2022 4:19 AM [facility] Anion Gap 9 6 - 16 mmol/L 03/22/2022 4:19 AM [facility] Total Calcium, Plasma 9.2 8.9 - 10.2 mg/dL 03/22/2022 4:19 AM [facility] Total Protein 6.4 6.3 - 7.9 g/dL 03/22/2022 4:19 AM [facility] Albumin, Plasma 3.9 3.5 - 5.2 g/dL 03/22/2022 4:19 AM [facility] AST, Plasma 50(H) 11 - 32 U/L 03/22/2022 4:19 AM [facility] ALT, Plasma 61(H) 8 - 33 U/L 03/22/2022 4:19 AM [facility] Alkaline Phosphatase, Plasma 100 35 - 104 U/L 03/22/2022 4:19 AM [facility] Total Bilirubin, Plasma <0.2(L) 0.2 - 1.1 mg/dL 03/22/2022 4:19 AM [facility] eGFRcr 112.0 mL/min/1.7 3m*2 03/22/2022 4:19 AM [facility] Comment: Reported eGFRcr in mL/min/1.73m2 is based the CKD-EPI 2021 equation that does not use a race coefficient. Effective 09/18/21 our laboratory changed the eGFR calculation to the CKD-EPI 2021 equation from the previously reported eGFR, based on the MDRD equation. ??For comparisons between the two equations, please see laboratory website: ??[email or web address] Blood Venous blood specimen / Unknown Venipuncture / Unknown 03/22/2022 3:29 AM EST 03/22/2022 3:44 AM EST Alessia Joe MD LAB BLOOD ORDERABLES Final Resu lt Performing Organization Address [facility] Co de Phone Number [facility] [address] [place] [address] * (ABNORMAL) Bilirubin, total (03/21/2022 2:32 AM EST) Total Bilirubin, Plasma <0.2(L) 0.2 - 1.1 mg/dL 03/21/2022 7:47 AM EST [facility] Blood Venous blood specimen / Unknown Venipuncture / Unknown 03/21/2022 2:32 AM EST 03/21/2022 3:01 AM EST Alessia Joe MD LAB BLOOD ORDERABLES Final Resu lt Performing Organization Address [facility] de Phone Number [facility] [address] [place] [address] * Alkaline Phosphatase (03/21/2022 2:32 AM EST) Alkaline Phosphatase, Plasma 98 35 - 104 U/L 03/21/2022 7:47 AM EST [facility] Blood Venous blood specimen / Unknown Venipuncture / Unknown 03/21/2022 2:32 AM EST 03/21/2022 3:01 AM EST Alessia Joe MD LAB BLOOD ORDERABLES Final Resu lt Performing Organization Address [facility] de Phone Number [facility] [address] [place] [address] * (ABNORMAL) Aspartate Aminotransferase, Plasma (03/21/2022 2:32 AM EST) AST, Plasma 35(H) 11 - 32 U/L 03/21/2022 7:47 AM EST [facility] Blood Venous blood specimen / Unknown Venipuncture / Unknown 03/21/2022 2:32 AM EST 03/21/2022 3:01 AM EST Alessia Joe MD LAB BLOOD ORDERABLES Final Resu lt Performing Organization Address City/[facility]/ZIP Co de Phone Number [facility] [address] [place] [address] * (ABNORMAL) Alanine Aminotransferase, Plasma (03/21/2022 2:32 AM EST) ALT, Plasma 43(H) 8 - 33 U/L 03/21/2022 7:47 AM EST [facility] Blood Venous blood specimen / Unknown Venipuncture / Unknown 03/21/2022 2:32 AM EST 03/21/2022 3:01 AM EST Alessia Joe MD LAB BLOOD ORDERABLES Final Resu lt Performing Organization Address [facility] de Phone Number [facility] [address] [place] [address] * (ABNORMAL) Basic metabolic panel (03/21/2022 2:32 AM EST) Glucose, Plasma 103(H) 74 - 99 mg/dL 03/21/2022 3:27 AM EST [facility] BUN, Plasma 13 7 - 21 mg/dL 03/21/2022 3:27 AM EST [facility] Creatinine, Plasma 1.06 0.60 - 1.10 mg/dL 03/21/2022 3:27 AM EST [facility] BUN/Creatinine Ratio 12 03/21/2022 3:27 AM EST [facility] Sodium, Plasma 142 136 - 145 mmol/L 03/21/2022 3:27 AM EST [facility] Potassium, Plasma 4.4 3.7 - 4.8 mmol/L 03/21/2022 3:27 AM EST [facility] Comment:Reference range for Serum potassium is 0.2 to 0.5 mmol/L higher than Plasma range. Chloride, Plasma 106 97 - 107 mmol/L 03/21/2022 3:27 AM EST [facility] CO2, Plasma 27 22 - 29 mmol/L 03/21/2022 3:27 AM EST [facility] Anion Gap 9 6 - 16 mmol/L 03/21/2022 3:27 AM EST [facility] Total Calcium, Plasma 8.9 8.9 - 10.2 mg/dL 03/21/2022 3:27 AM EST [facility] eGFRcr 70.4 mL/min/1.7 3m*2 03/21/2022 3:27 AM EST [facility] Comment: Reported eGFRcr in mL/min/1.73m2 is based the CKD-EPI 2021 equation that does not use a race coefficient. Effective 09/18/21 our laboratory changed the eGFR calculation to the CKD-EPI 2021 equation from the previously reported eGFR, based on the MDRD equation. ??For comparisons between the two equations, please see laboratory website: ??[email or web address]/[email or web address] Blood Venous blood specimen / Unknown Venipuncture / Unknown 03/21/2022 2:32 AM EST 03/21/2022 3:01 AM EST us Carter Donis MD LAB BLOOD ORDERABLES Final Resul t [facility] [address] [place], [place] [id number] * CBC W/O Differential (03/21/2022 2:32 AM EST) WBC Count 5.07 3.70 - 10.30 10*3/uL LAB HEMATOLOGY METHOD 03/21/2022 3:05 AM EST [facility] RBC Count 4.17 3.90 - 5.20 10*6/uL LAB HEMATOLOGY METHOD 03/21/2022 3:05 AM EST [facility] HGB 11.4 11.2 - 15.7 g/dL LAB HEMATOLOGY METHOD 03/21/2022 3:05 AM EST [facility] HCT 36.0 34.0 - 45.0 % LAB HEMATOLOGY METHOD 03/21/2022 3:05 AM EST [facility] Platelet Count 314 155 - 369 10*3/uL LAB HEMATOLOGY METHOD 03/21/2022 3:05 AM EST [facility] MCV 86 79 - 98 fL LAB HEMATOLOGY METHOD 03/21/2022 3:05 AM EST [facility] MCH 27.3 26.0 - 32.0 pg LAB HEMATOLOGY METHOD 03/21/2022 3:05 AM EST [facility] MCHC 31.7 30.7 - 35.5 g/dL LAB HEMATOLOGY METHOD 03/21/2022 3:05 AM EST [facility] RDW 14.5 11.5 - 14.5 % LAB HEMATOLOGY METHOD 03/21/2022 3:05 AM EST [facility] MPV 9.4 8.8 - 12.5 fL LAB HEMATOLOGY METHOD 03/21/2022 3:05 AM EST [facility] nRBC 0.0 <=0.0 per 100 WBCs LAB HEMATOLOGY METHOD 03/21/2022 3:05 AM EST [facility] Blood Venous blood specimen / Unknown Venipuncture / Unknown 03/21/2022 2:32 AM EST 03/21/2022 3:02 AM EST us Carter Donis MD LAB BLOOD ORDERABLES Final Resul t Performing Organization Address City/State/[facility] de Phone Number [facility] [address] [place] [address] * SARS-CoV-2 COVID-19/Influenza A,B (03/20/2022 4:59 PM EST) Pathologist [facility] SARS CoV-2/COVID-1 9 RNA PCR Result Not Detected Not Detected 03/20/2022 5:24 PM EST [facility] Influenza A Virus PCR Result Not Detected Not Detected 03/20/2022 5:24 PM EST [facility] Influenza B Virus PCR Result Not Detected Not Detected 03/20/2022 5:24 PM EST [facility] Swab Nasopharyngeal structure / Unknown Non-blood Collection / Unknown 03/20/2022 4:59 PM EST 03/20/2022 5:01 PM EST Narrative [facility] - 03/20/2022 5:24 PM EST This test was performed using [...] clinical signs and symptoms consistent with COVID-19. Alessia Joe MD LAB MICROBIOLOGY - [facility] Final Result Performing Organization Address City/[facility] Co de Phone Number [facility] [address] [place] [address] * hCG qualitative (03/20/2022 1:43 PM EST) Pathologist [facility] Test Negative Negative 03/20/2022 2:22 PM EST [facility] Blood Venous blood specimen / Unknown Venipuncture / Unknown 03/20/2022 1:43 PM EST 03/20/2022 1:46 PM EST Narrative [facility] - 03/20/2022 2:22 PM EST Reference Range: Males and non- females: Negative. Result [facility] Carter Donis MD LAB BLOOD ORDERABLES Final Resul t Performing Organization Address City/[facility] Co de Phone Number [facility] [address] [place] [address] * Lactate, venous (03/20/2022 1:43 PM EST) Lactate, Venous, Whole Blood 1.4 0.5 - 2.2 mmol/L LAB HEMATOLOGY METHOD 03/20/2022 1:49 PM EST [facility] Blood Venous blood specimen / Unknown Venipuncture / Unknown 03/20/2022 1:43 PM EST 03/20/2022 1:46 PM EST Carter Donis MD LAB BLOOD ORDERABLES Final Resul t Performing Organization Address City/[facility]/ZIP Co de Phone Number [facility] [address] [place] [address] * (ABNORMAL) Lipase, Plasma (03/20/2022 1:43 PM EST) Lipase, Plasma 89(H) 19 - 63 U/L 03/20/2022 2:22 PM EST [facility] Blood Venous blood specimen / Unknown Venipuncture / Unknown 03/20/2022 1:43 PM EST 03/20/2022 1:46 PM EST us Carter Donis MD LAB BLOOD ORDERABLES Final Resul t Performing Organization Address City/[facility] Co de Phone Number [facility] [address] [place] [address] * CBC and Differential (03/20/2022 1:43 PM EST) WBC Count 5.75 3.70 - 10.30 10*3/uL LAB HEMATOLOGY METHOD 03/20/2022 1:51 PM EST [facility] RBC Count 4.39 3.90 - 5.20 10*6/uL LAB HEMATOLOGY METHOD 03/20/2022 1:51 PM EST [facility] HGB 11.8 11.2 - 15.7 g/dL LAB HEMATOLOGY METHOD 03/20/2022 1:51 PM EST [facility] HCT 37.1 34.0 - 45.0 % LAB HEMATOLOGY METHOD 03/20/2022 1:51 PM EST [facility] Platelet Count 315 155 - 369 10*3/uL LAB HEMATOLOGY METHOD 03/20/2022 1:51 PM EST [facility] MCV 85 79 - 98 fL LAB HEMATOLOGY METHOD 03/20/2022 1:51 PM EST [facility] MCH 26.9 26.0 - 32.0 pg LAB HEMATOLOGY METHOD 03/20/2022 1:51 PM EST [facility] MCHC 31.8 30.7 - 35.5 g/dL LAB HEMATOLOGY METHOD 03/20/2022 1:51 PM EST [facility] RDW 14.1 11.5 - 14.5 % LAB HEMATOLOGY METHOD 03/20/2022 1:51 PM EST [facility] MPV 9.2 8.8 - 12.5 fL LAB HEMATOLOGY METHOD 03/20/2022 1:51 PM EST [facility] nRBC 0.0 <=0.0 per 100 WBCs LAB HEMATOLOGY METHOD 03/20/2022 1:51 PM EST [facility] Differential Type Automated LAB HEMATOLOGY METHOD 03/20/2022 1:51 PM EST [facility] Neutrophils % 55.0 % LAB HEMATOLOGY METHOD 03/20/2022 1:51 PM EST [facility] Lymphocytes % 38.0 % LAB HEMATOLOGY METHOD 03/20/2022 1:51 PM EST [facility] Monocytes % 6.0 % LAB HEMATOLOGY METHOD 03/20/2022 1:51 PM EST [facility] Eosinophils % 0.0 % LAB HEMATOLOGY METHOD 03/20/2022 1:51 PM EST [facility] Basophils % 1.0 % LAB HEMATOLOGY METHOD 03/20/2022 1:51 PM EST [facility] Immature Granulocytes % 0.0 % LAB HEMATOLOGY METHOD 03/20/2022 1:51 PM EST [facility] Neutrophils Absolute 3.17 1.60 - 6.10 10*3/uL LAB HEMATOLOGY METHOD 03/20/2022 1:51 PM EST [facility] Lymphocytes Absolute 2.17 1.20 - 3.90 10*3/uL LAB HEMATOLOGY METHOD 03/20/2022 1:51 PM EST [facility] Monocytes Absolute 0.32 0.30 - 0.90 10*3/uL LAB HEMATOLOGY METHOD 03/20/2022 1:51 PM EST [facility] Eosinophils Absolute 0.01 0.00 - 0.50 10*3/uL LAB HEMATOLOGY METHOD 03/20/2022 1:51 PM EST [facility] Basophils Absolute 0.06 0.00 - 0.10 10*3/uL LAB HEMATOLOGY METHOD 03/20/2022 1:51 PM EST [facility] Immature Granulocytes Absolute 0.02 0.00 - 0.06 10*3/uL LAB HEMATOLOGY METHOD 03/20/2022 1:51 PM EST [facility] Blood Venous blood specimen / Unknown Venipuncture / Unknown 03/20/2022 1:43 PM EST 03/20/2022 1:46 PM EST [facility] - 03/20/2022 1:51 PM EST Therapeutic decision making should be based on absolute values, rather than percentages. us Carter Donis MD LAB BLOOD ORDERABLES Final Resul t [facility] [address] [place] [address] * (ABNORMAL) Comprehensive Metabolic Panel, Plasma (03/20/2022 1:43 PM EST) Glucose, Plasma 92 74 - 99 mg/dL 03/20/2022 2:22 PM EST [facility] BUN, Plasma 7 7 - 21 mg/dL 03/20/2022 2:22 PM EST [facility] Creatinine, Plasma 0.69 0.60 - 1.10 mg/dL 03/20/2022 2:22 PM EST [facility] BUN/Creatinine Ratio 10 03/20/2022 2:22 PM EST [facility] Sodium, Plasma 139 136 - 145 mmol/L 03/20/2022 2:22 PM EST [facility] Potassium, Plasma 4.4 3.7 - 4.8 mmol/L 03/20/2022 2:22 PM EST [facility] Comment:Reference range for Serum potassium is 0.2 to 0.5 mmol/L higher than Plasma range. Chloride, Plasma 102 97 - 107 mmol/L 03/20/2022 2:22 PM EST [facility] CO2, Plasma 27 22 - 29 mmol/L 03/20/2022 2:22 PM EST [facility] Anion Gap 10 6 - 16 mmol/L 03/20/2022 2:22 PM EST [facility] Total Calcium, Plasma 9.4 8.9 - 10.2 mg/dL 03/20/2022 2:22 PM EST [facility] Total Protein 6.8 6.3 - 7.9 g/dL 03/20/2022 2:22 PM EST [facility] Albumin, Plasma 4.2 3.5 - 5.2 g/dL 03/20/2022 2:22 PM EST [facility] AST, Plasma 48(H) 11 - 32 U/L 03/20/2022 2:22 PM EST [facility] ALT, Plasma 56(H) 8 - 33 U/L 03/20/2022 2:22 PM EST [facility] Alkaline Phosphatase, Plasma 107(H) 35 - 104 U/L 03/20/2022 2:22 PM EST [facility] Total Bilirubin, Plasma <0.2(L) 0.2 - 1.1 mg/dL 03/20/2022 2:22 PM EST [facility] eGFRcr 116.2 mL/min/1.7 3m*2 03/20/2022 2:22 PM EST [facility] Comment: Reported eGFRcr in mL/min/1.73m2 is based the CKD-EPI 2021 equation that does not use a race coefficient. Effective 09/18/21 our laboratory changed the eGFR calculation to the CKD-EPI 2021 equation from the previously reported eGFR, based on the MDRD equation. ??For comparisons between the two equations, please see laboratory website: ??[email or web address] Blood Venous blood specimen / Unknown Venipuncture / Unknown 03/20/2022 1:43 PM EST 03/20/2022 1:46 PM EST us Carter Donis MD LAB BLOOD ORDERABLES Final Resul t Performing Organization Address City/State/[facility] Co de Phone Number [facility] [address] [place] [address] * Urinalysis with reflex microscopic (03/20/2022 1:23 PM EST) Color, Urine Yellow LAB URINALYSIS - AUTOMATED METHOD 03/20/2022 1:29 PM EST [facility] Clarity, Urine Clear LAB URINALYSIS - AUTOMATED METHOD 03/20/2022 1:29 PM EST [facility] Spec [place], Urine 1.007 <=1.005 to >=1.030 LAB URINALYSIS - AUTOMATED METHOD 03/20/2022 1:29 PM EST [facility] pH, Urine 7.5 4.5 to 8 LAB URINALYSIS - AUTOMATED METHOD 03/20/2022 1:29 PM EST [facility] Protein, Urine Negative Negative mg/dL LAB URINALYSIS - AUTOMATED METHOD 03/20/2022 1:29 PM EST [facility] Glucose, Urine Negative Negative mg/dL LAB URINALYSIS - AUTOMATED METHOD 03/20/2022 1:29 PM EST [facility] Ketones, Urine Negative Negative mg/dL LAB URINALYSIS - AUTOMATED METHOD 03/20/2022 1:29 PM EST [facility] Blood, Urine Negative Negative LAB URINALYSIS - AUTOMATED METHOD 03/20/2022 1:29 PM EST [facility] Bilirubin, Urine Negative Negative LAB URINALYSIS - AUTOMATED METHOD 03/20/2022 1:29 PM EST [facility] Urobilinogen, Urine 0.2 0.2 to 1.0 mg/dL LAB URINALYSIS - AUTOMATED METHOD 03/20/2022 1:29 PM EST [facility] Leukocytes, Urine Negative Negative LAB URINALYSIS - AUTOMATED METHOD 03/20/2022 1:29 PM EST [facility] Nitrite, Urine Negative Negative LAB URINALYSIS - AUTOMATED METHOD 03/20/2022 1:29 PM EST [facility] Urine Urine specimen obtained by clean catch procedure / Unknown Non-blood Collection / Unknown 03/20/2022 1:23 PM EST 03/20/2022 1:27 PM EST us Carter Donis MD LAB URINE ORDERABLES Final Resul t Performing Organization Address City/[facility] Co de Phone Number [facility] [address] [place] [address] * EKG now - STAT (adult) (03/20/2022 1:17 PM EST) EKG DIAGNOSIS CLASS Abnormal MUSE ECG Ventricular Rate 67 BPM MUSE ECG Atrial Rate 67 BPM MUSE ECG [place] Interval 116 ms MUSE ECG QRSD Interval 86 ms MUSE ECG QT Interval 394 ms MUSE ECG QTC Interval 416 ms MUSE ECG P [place] 10 degrees MUSE ECG R [place] 23 degrees MUSE ECG T Wave [place] 17 degrees MUSE ECG Diagnosis Normal sinus rhythm MUSE ECG Diagnosis Cannot rule out MUSE ECG Diagnosis Anterior infarct MUSE ECG Diagnosis , age undetermined MUSE ECG Diagnosis Abnormal ECG MUSE ECG Diagnosis Confirmed by Benjamin Razo ([id number]) on 03/22/2022 9:15:10 AM MUSE ECG 03/20/2022 1:17 PM EST 03/22/2022 9:15 AM EST us Carter Donis MD ECG ORDERABLES Final Result Performing Organization Address City/[facility]/ZIP Co de Phone Number MUSE ECG documented in this encounter Visit Diagnoses Diagnosis Epigastric pain Abdominal pain, epigastric documented in this encounter Admitting Diagnoses Diagnosis Abdominal pain Abdominal pain, unspecified site documented in this encounter Administered Medications Inactive Administered Medications - up to 3 most recent administrations Medication Order MAR Action Action Date Dose Rate Site acetaminophen (Tylenol) tablet 650 mg 650 mg, Oral, Every 6 hours PRN, Starting on Thu03/21/22 at 0726, Until Thu03/21/22 at 1254, Routine, mild pain Given 03/21/2022 8:29 AM EST 650 mg acetaminophen (Tylenol) tablet 650 mg 650 mg, Oral, Every 6 hours, First dose (after last modification) on Thu03/21/22 at 1430, Until Discontinued, Routine Given 03/22/2022 1:32 PM EST 650 mg Given 03/22/2022 8:12 AM EST 650 mg Given 03/22/2022 2:20 AM EST 650 mg dicyclomine (Bentyl) tablet 20 mg 20 mg, Oral, 4 times daily, First dose on Thu03/21/22 at 1800, Until Discontinued, Routine Given 03/22/2022 1:32 PM EST 20 mg Given 03/22/2022 8:12 AM EST 20 mg Given 03/21/2022 9:26 PM EST 20 mg enoxaparin (Lovenox) syringe 40 mg 40 mg, Subcutaneous, Daily, First dose on Thu03/20/22 at 1620, Until Discontinued, Routine Given 03/22/2022 8:12 AM EST 40 mg Right Upper Abdomen Given 03/20/2022 4:52 PM EST 40 mg Le ft Lower Abdomen gi cocktail oral solution 30 mL 30 mL, Oral, 4 times daily PRN, Starting on Thu03/21/22 at 1253, Until Thu03/22/22 at 1600, Routine, heartburn, indigestion Given 03/21/2022 5:29 PM EST 30 mL HYDROmorphone (Dilaudid) injection 0.25 mg 0.25 mg, Intravenous, Every 8 hours PRN, Starting on Thu03/20/22 at 1616, Until Thu03/21/22 at 1009, Routine, severe pain Given 03/21/2022 2:29 AM EST 0.25 m g Given 03/20/2022 4:49 PM EST 0.25 mg HYDROmorphone (Dilaudid) injection 0.25 mg 0.25 mg, Intravenous, Once, 1 dose, On Thu03/20/22 at 2045, Routine Given 03/20/2022 8:23 PM EST 0.25 mg HYDROmorphone (Dilaudid) injection 0.25 mg 0.25 mg, Intravenous, Every 8 hours PRN, Starting on Thu03/21/22 at 1008, Until Thu03/21/22 at 1213, Routine, severe pain, for breakthrough pain, not relieved by oxycodone Given 03/21/2022 10:30 AM EST 0.25 mg HYDROmorphone (Dilaudid) tablet 1 mg 1 mg, Oral, Every 8 hours PRN, Starting on Thu03/21/22 at 1837, Until 03/22/22 at 1600, Routine, severe pain, for breakthrough pain not relieved by oxycodone Given 03/22/2022 8:12 AM EST 1 mg Given 03/22/2022 12:34 AM EST 1 mg Given 03/21/2022 6:32 PM EST 1 mg hydrOXYzine pamoate (Vistaril) capsule 25 mg 25 mg, Oral, Every 6 hours PRN, Starting on Thu03/20/22 at 1856, Until Thu03/22/22 at 1600, Routine, anxiety Given 03/22/2022 11:43 AM EST 25 mg Given 03/21/2022 6:31 PM EST 25 mg Given 03/20/2022 8:25 PM EST 25 mg lactated Ringer's infusion 100 mL/hr, Intravenous, Continuous, Starting on Thu03/20/22 at 1620, Until Thu03/21/22 at 0254, Routine New Bag 03/20/2022 4:55 PM EST 100 mL/hr 100 mL /hr lactated Ringer's infusion 100 mL/hr, Intravenous, Continuous, Starting on Thu03/21/22 at 0800, Until Thu03/21/22 at 1835, Routine New Bag 03/21/2022 8:36 AM EST 100 mL/hr 100 mL /hr lactated Ringer's infusion 100 mL/hr, Intravenous, Continuous, Starting on Thu03/22/22 at 1045, Until 03/22/22 at 1600, Routine New Bag 03/22/2022 10:41 AM EST 100 mL/hr 100 m L/hr LORazepam (Ativan) tablet 1 mg 1 mg, Oral, Daily, First dose on Thu03/21/22 at 1030, Until Discontinued, Routine Given 03/22/2022 8:13 AM EST 1 mg Given 03/21/2022 10:29 AM EST 1 mg morphine PF 8 mg 8 mg, Intravenous, Once, 1 dose, On Thu03/20/22 at 1410, STAT Given 03/20/2022 2:09 PM EST 8 mg ondansetron (Zofran) injection 4 mg 4 mg, Intravenous, Once, 1 dose, On Thu03/20/22 at 1320, STAT Given 03/20/2022 1:49 PM EST 4 mg ondansetron (Zofran) injection 4 mg 4 mg, Intravenous, Every 6 hours PRN, Starting on Thu03/20/22 at 1617, Until Thu03/21/22 at 0726, Routine, nausea, vomiting Given 03/21/2022 2:44 AM EST 4 mg Given 03/20/2022 4:48 PM EST 4 mg ondansetron (Zofran) injection 4 mg 4 mg, Intravenous, Every 6 hours PRN, Starting on 03/22/22 at 1003, Until 03/22/22 at 1600, Routine, nausea, vomiting ondansetron ODT (Zofran-ODT) disintegrating tablet 4 mg 4 mg, Oral, Every 6 hours PRN, Starting on Thu03/21/22 at 0726, Until 03/22/22 at 1003, Routine, nausea, vomiting Given 03/22/2022 6:33 AM EST 4 mg Given 03/21/2022 5:28 PM EST 4 mg Given 03/21/2022 8:31 AM EST 4 mg oxyCODONE (Roxicodone) immediate release tablet 10 mg 10 mg, Oral, Every 6 hours PRN, Starting on Thu03/20/22 at 1616, Until 03/22/22 at 1600, Routine, moderate pain Given 03/22/2022 11:43 AM EST 10 mg Given 03/22/2022 6:01 AM EST 10 mg Given 03/21/2022 11:57 PM EST 10 mg pancrelipase (Creon) 30753 units capsule 2 capsule, Oral, 3 times daily with meals, First dose on Thu03/20/22 at 1730, Until Discontinued, Routine Given 03/22/2022 12:10 PM EST 2 capsule s Given 03/22/2022 8:11 AM EST 2 capsules Given 03/21/2022 5:28 PM EST 2 capsules pantoprazole (Protonix) EC tablet 40 mg 40 mg, Oral, 2 times daily, First dose on Thu03/20/22 at 2100, Until Discontinued, Routine Given 03/22/2022 8:12 AM EST 40 mg Given 03/21/2022 8:49 PM EST 40 mg Given 03/21/2022 8:31 AM EST 40 mg pantoprazole (Protonix) injection 40 mg 40 mg, Intravenous, Once, 1 dose, On Thu03/20/22 at 1500, STAT Given 03/20/2022 3:41 PM EST 40 mg pregabalin (Lyrica) capsule 300 mg 300 mg, Oral, 2 times daily, First dose on Thu03/21/22 at 1030, Until Discontinued, Routine Given 03/22/2022 8:12 AM EST 300 mg Given 03/21/2022 8:49 PM EST 300 mg Given 03/21/2022 10:29 AM EST 300 mg promethazine (Phenergan) injection 12.5 mg 12.5 mg, Intravenous, Every 4 hours PRN, Starting on 03/22/22 at 1003, Until 03/22/22 at 1600, Routine, nausea, vomiting, Restricted to patients refractory to ondansetron. When rapid onset is required and oral is insufficient or NPO promethazine (Phenergan) tablet 12.5 mg 12.5 mg, Oral, Every 4 hours PRN, Starting on Thu03/21/22 at 1047, Until 03/22/22 at 1003, Routine, nausea, vomiting Given 03/21/2022 10:40 PM EST 12.5 mg Given 03/21/2022 11:31 AM EST 12.5 mg sodium chloride 0.9 % flush 10 mL 10 mL, Intravenous, Every 8 hours PRN, Starting on Thu03/20/22 at 1613, Until 03/22/22 at 1600, Routine, line care sodium chloride 0.9 % flush 10 mL 10 mL, Intravenous, As needed, Starting on Thu03/20/22 at 1613, Until 03/22/22 at 1600, Routine, line care sodium chloride 0.9% infusion 1,000 mL 1,000 mL, Intravenous, Once, 1 dose, On Annabel 03/20/22 at 1320, STAT New Bag 03/20/2022 1:49 PM EST 1,000 mL documented in this encounter Active and Recently Administered Medications Times are shown in EST. Scheduled Medication Order 03/20/2022 03/21/2022 03/22/2022 acetaminophen (Tylenol) tablet 650 mg 650 mg, Oral, Every 6 hours, First dose (after last modification) on Thu03/21/22 at 1430, Until Discontinued, Routine 1409 (Given - Provider: Karla Barriga RN)204 (Given - Provider: Kenyatta Lucas LPN) 0220 (Given - Provider: Kenyatta Lucas LPN)0812 (Given - Provider: Francis Govea RN)1332 (Given - Provider: Francis Govea RN) dicyclomine (Bentyl) tablet 20 mg 20 mg, Oral, 4 times daily, First dose on Thu03/21/22 at 1800, Until Discontinued, Routine 1728 (Given - Provider: Karla Barriga RN)2126 (Given - Provider: Kenyatta Lucas LPN) 0812 (Given - Provider: Francis Govea RN)1332 (Given - Provider: Francis Govea RN) enoxaparin (Lovenox) syringe 40 mg 40 mg, Subcutaneous, Daily, First dose on Annabel 03/20/22 at 1620, Until Discontinued, Routine 1652 (Given - Provider: Gela Joseph RN) 0831 (Not Given - Provider: Karla Barriga RN - Reason: Patient/family refused) 0812 (Given - Provider: Francis Govea RN) HYDROmorphone (Dilaudid) injection 0.25 mg (COMPLETED) 0.25 mg, Intravenous, Once, 1 dose, On Annabel 03/20/22 at 2045, Routine 2022 (Given - Provider: Suzi Joseph RN) LORazepam (Ativan) tablet 1 mg 1 mg, Oral, Daily, First dose on Thu03/21/22 at 1030, Until Discontinued, Routine 1029 (Given - Provider: Karla Barriga RN) 0813 (Given - Provider: Francis Govea RN) lurasidone (Latuda) tablet 40 mg 40 mg, Oral, Daily with breakfast, First dose on Thu03/21/22 at 0800, Until Discontinued, Routine 0830 (Not Given - Provider: Karla Barriga RN - Reason: Patient/family refused) 0819 (Not Given - Provider: Francis Govea RN - Reason: Patient/family refused) morphine PF 8 mg (COMPLETED) 8 mg, Intravenous, Once, 1 dose, On Annabel 03/20/22 at 1410, STAT 1409 (Given - Provider: Leatha Higgins RN) ondansetron (Zofran) injection 4 mg (COMPLETED) 4 mg, Intravenous, Once, 1 dose, On Annabel 03/20/22 at 1320, STAT 1349 (Given - Provider: Andrew Gonzalez RN) pancrelipase (Creon) 37481 units capsule 2 capsule, Oral, 3 times daily with meals, First dose on Annabel 03/20/22 at 1730, Until Discontinued, Routine 1844 (Not Given - Provider: Raiza Mauro RN - Reason: Hold for condition: must add comment - Comment: new admit and the pt said she was in too much pain to eat anything right now) 0829 (Given - Provider: Karla Barriga RN)1131 (Given - Provider: Karla Barriga RN)1728 (Given - Provider: Karla Barriga RN) 0811 (Given - Provider: Francis Govea RN)1210 (Given - Provider: Francis Govea RN) pantoprazole (Protonix) EC tablet 40 mg 40 mg, Oral, 2 times daily, First dose on Thu03/20/22 at 2100, Until Discontinued, Routine 2014 (Given - Provider: Suzi Joseph RN) 0831 (Given - Provider: Karla Barriga RN)204 (Given - Provider: Kenyatta Lucas LPN) 0812 (Given - Provider: Francis Govea RN) pantoprazole (Protonix) injection 40 mg (COMPLETED) 40 mg, Intravenous, Once, 1 dose, On Annabel 03/20/22 at 1500, STAT 1541 (Given - Provider: Gela Joseph RN) pregabalin (Lyrica) capsule 300 mg 300 mg, Oral, 2 times daily, First dose on Thu03/21/22 at 1030, Until Discontinued, Routine 1029 (Given - Provider: Karla Barriga RN)2049 (Given - Provider: Kenyatta Lucas LPN) 0812 (Given - Provider: Francis Govea, CHANDNI) sodium chloride 0.9% infusion 1,000 mL (COMPLETED) 1,000 mL, Intravenous, Once, 1 dose, On Annabel 03/20/22 at 1320, STAT 1349 (New Bag - Provider: Andrew Gonzalez RN)1542 (Stopped - Provider: Gela Joseph, CHANDNI) venlafaxine XR (Effexor-XR) 24 hr capsule 150 mg 150 mg, Oral, Daily with breakfast, First dose on Thu03/21/22 at 0800, Until Discontinued, Routine 0829 (Not Given - Provider: Karla Barriga RN - Reason: Patient/family refused) 0820 (Not Given - Provider: Francis Govea RN - Reason: Patient/family refused) Continuous Medication Order 03/20/2022 03/21/2022 03/22/2022 lactated Ringer's infusion () 100 mL/hr, Intravenous, Continuous, Starting on Annabel 03/20/22 at 1620, Until Thu03/21/22 at 0254, Routine 1655 (New Bag - Provider: Gela Joseph, CHANDNI) 0300 (Stopped - Provider: Suzi Joseph RN) lactated Ringer's infusion () 100 mL/hr, Intravenous, Continuous, Starting on Thu03/21/22 at 0800, Until Thu03/21/22 at 1835, Routine 0836 (New Bag - Provider: Karla Barriga, CHANDNI) lactated Ringer's infusion 100 mL/hr, Intravenous, Continuous, Starting on 03/22/22 at 1045, Until 03/22/22 at 1600, Routine 1041 (New Bag - Provider: Francis Govea, CHANDNI) PRN Medication Order 03/20/2022 03/21/2022 03/22/2022 acetaminophen (Tylenol) tablet 650 mg (CANCELED) 650 mg, Oral, Every 6 hours PRN, Starting on Thu03/21/22 at 0726, Until Thu03/21/22 at 1254, Routine, mild pain 0829 (Given - Provider: Karla Barriga RN) gi cocktail oral solution 30 mL 30 mL, Oral, 4 times daily PRN, Starting on Thu03/21/22 at 1253, Until 03/22/22 at 1600, Routine, heartburn, indigestion 1416 (Return to [facility] - Provider: Karla Barriga RN)1729 (Given - Provider: Karla Barriga RN) HYDROmorphone (Dilaudid) injection 0.25 mg (CANCELED) 0.25 mg, Intravenous, Every 8 hours PRN, Starting on Annabel 03/20/22 at 1616, Until Thu03/21/22 at 1009, Routine, severe pain 1649 (Given - Provider: Gela Joseph RN) 0229 (Given - Provider: Suzi Joseph RN) HYDROmorphone (Dilaudid) injection 0.25 mg (CANCELED) 0.25 mg, Intravenous, Every 8 hours PRN, Starting on Thu03/21/22 at 1008, Until Thu03/21/22 at 1213, Routine, severe pain, for breakthrough pain, not relieved by oxycodone 1030 (Given - Provider: Karla Barriga RN) HYDROmorphone (Dilaudid) tablet 1 mg 1 mg, Oral, Every 8 hours PRN, Starting on Thu03/21/22 at 1837, Until 03/22/22 at 1600, Routine, severe pain, for breakthrough pain not relieved by oxycodone 1832 (Given - Provider: Brooke Martin RN) 0034 (Given - Provider: Manuel Bourgeois RN)0812 (Given - Provider: Francis Govea, CHANDNI) hydrOXYzine pamoate (Vistaril) capsule 25 mg 25 mg, Oral, Every 6 hours PRN, Starting on Annabel 03/20/22 at 1856, Until 03/22/22 at 1600, Routine, anxiety 2025 (Given - Provider: Suzi Joseph, CHANDNI) 0831 (Return to [facility] - Provider: Karla Barriga RN)1831 (Given - Provider: Brooke Martin RN) 1143 (Given - Provider: Francis Govea RN) ondansetron (Zofran) injection 4 mg (CANCELED) 4 mg, Intravenous, Every 6 hours PRN, Starting on Annabel 03/20/22 at 1617, Until Thu03/21/22 at 0726, Routine, nausea, vomiting 1648 (Given - Provider: Gela Joseph RN) 0244 (Given - Provider: Suzi Joseph RN) ondansetron (Zofran) injection 4 mg 4 mg, Intravenous, Every 6 hours PRN, Starting on 03/22/22 at 1003, Until 03/22/22 at 1600, Routine, nausea, vomiting ondansetron ODT (Zofran-ODT) disintegrating tablet 4 mg (CANCELED) 4 mg, Oral, Every 6 hours PRN, Starting on Thu03/21/22 at 0726, Until 03/22/22 at 1003, Routine, nausea, vomiting 0831 (Given - Provider: Karla Barriga RN)1728 (Given - Provider: Karla Barriga RN) 0633 (Given - Provider: Kenyatta Lucas LPN) oxyCODONE (Roxicodone) immediate release tablet 10 mg 10 mg, Oral, Every 6 hours PRN, Starting on Annabel 03/20/22 at 1616, Until 03/22/22 at 1600, Routine, moderate pain 1648 (Given - Provider: Gela Joseph RN)2252 (Given - Provider: Suzi Joseph RN) 0524 (Given - Provider: Suzi Joseph RN)1031 ([facility] - Provider: Karla Barriga RN)1131 (Given - Provider: Karla Barriga RN)1728 (Given - Provider: Karla Barriga RN)2357 (Given - Provider: Kenyatta Lucas LPN) 0601 (Given - Provider: Kenyatta Lucas LPN)1143 (Given - Provider: Francis Govea RN) promethazine (Phenergan) injection 12.5 mg 12.5 mg, Intravenous, Every 4 hours PRN, Starting on 03/22/22 at 1003, Until 03/22/22 at 1600, Routine, nausea, vomiting, Restricted to patients refractory to ondansetron. When rapid onset is required and oral is insufficient or NPO promethazine (Phenergan) tablet 12.5 mg (CANCELED) 12.5 mg, Oral, Every 4 hours PRN, Starting on Thu03/21/22 at 1047, Until 03/22/22 at 1003, Routine, nausea, vomiting 1131 (Given - Provider: Karla Barriga RN)2240 (Given - Provider: Kenyatta Lucas LPN) sodium chloride 0.9 % flush 10 mL(Linked Group 1) 10 mL, Intravenous, Every 8 hours PRN, Starting on Annabel 03/20/22 at 1613, Until 03/22/22 at 1600, Routine, line care sodium chloride 0.9 % flush 10 mL(Linked Group 1) 10 mL, Intravenous, As needed, Starting on Annabel 03/20/22 at 1613, Until 03/22/22 at 1600, Routine, line care Linked Groups Order Group 1: Insert peripheral IV (COMPLETED) Once, On Annabel 03/20/22 at 1614, For 1 occurrence And Saline lock IV (COMPLETED) Once, On Annabel 03/20/22 at 1614, For 1 occurrence And sodium chloride 0.9 % flush 10 mLJump to med 10 mL, Intravenous, Every 8 hours PRN, Starting on Annabel 03/20/22 at 1613, Until 03/22/22 at 1600, Routine, line care And sodium chloride 0.9 % flush 10 mLJump to med 10 mL, Intravenous, As needed, Starting on Annabel 03/20/22 at 1613, Until 03/22/22 at 1600, Routine, line care documented in this encounter Additional Health Concerns Assessment Noted Time A fall risk assessment has been complete d for the patient 11/21/2020 2:30 PM EDT documented as of this encounter Care Teams Outpatient Coding Specialist Relationship Specialty Start Date End Date Elmo Escobar MD PCP - General 10/18/20 01/05/23 documented as of this encounter
--- OUTSIDE RECORDS SUMMARY | 2024-02-03 15:23 | XMS_ITS | Encounter Summary ---
Author Organization Healthcare Address [address] [place] [address] Care Team Providers Care Section Cutter Name Role Phone Elmo Escobar MD Primary Care Provider [phone] Tiffanie Gonzalez HISTORY DEPARTMENT CHAIR Unavailable UnavailRafiq Walker DO Primary Care Provider [phone] Pcp, No Primary Care Provider Unavailabl Citlali Larios PHYSICAL THERAPY ASSISTANT Primary Care Provider [phone] Dipika Lorenzana HISTORY DEPARTMENT CHAIR Unavailable Unavaila ble Pcp, No Primary Care Provider UnavailLisa Perez PHYSICAL THERAPY ASSISTANT Primary Care Provider [phone] Amira Solis HISTORY DEPARTMENT CHAIR Unavailable Unavailable Cally Tilley HISTORY DEPARTMENT CHAIR Unavailable Unavailable Encounter Details Date Type Department Care Team (Latest Contact Info) Description 07/31/2021 [facility] [address] [place] [address] Elmo Escobar MD [address] [place] [address] Other chronic pain (Primary Dx); Chronic pancreatitis, unspecified pancreatitis type (CMS/HCC) Social History Tobacco Use Types Packs/Day [...] as of this encounter Visit Diagnoses Diagnosis Other chronic pain- Primary Chronic pancreatitis, unspecified pancreatitis type (CMS/HCC) documented in this encounter Additional Health Concerns Infection Onset Date Last Indicated Resolved Time COVID-19 Rule-Out 05/22/2022 05/22/2022 05/22/2022 6:25 PM EDT C. difficile Rule-Out Comment:Patient has not had a BM since admitted to the unit. 07/19/2022 07/19/2022 07/21/2022 1 1:51 AM EDT Gastrointestinal Rule-Out 07/19/2022 07/19/2022 10:49 AM EDT COVID-19 Rule-Out 09/18/2022 09/18/2022 09/18/2022 3:18 PM EDT Respiratory Rule-Out 09/19/2022 09/18/202209/19/2 023 12:55 PM EDT COVID-19 Rule-Out 09/19/2022 09/19/2022 09/19/2022 4:20 PM EDT Gastrointestinal Rule-Out 09/25/2022 09/26/2022 1:21 PM EDT C. difficile Rule-Out 09/25/2022 09/26/20222022 1:20 PM EDT Gastrointestinal Rule-Out Comment:Diarrhea resolved without any episodes during admission 11/18/2022 11/18/2022 11/20/2022 1:26 PM E DT C. difficile Rule-Out Comment:Diarrhea resolved spontaneously w/o any episodes during admission 11/18/2022 11/18/202211/2011/20/2022 1:26 PM E DT C. difficile Rule-Out 04/11/2023 04/12/20232023 8:38 AM EST Gastrointestinal Rule-Out 04/11/2023 04/12/2023 10:01 AM EST COVID-19 Rule-Out 06/04/2023 06/04/2023 06/04/2023 11:14 AM EDT COVID-19 Rule-Out 01/22/2024 01/22/2024 01/22/2024 9:53 PM EST Respiratory Rule-Out 01/22/2024 01/22/2024 024 10:59 PM EST COVID-19 Rule-Out 01/31/2024 01/31/2024 01/31/2024 6:02 PM EST Assessment Noted Time A fall risk assessment has been complete d for the patient 11/21/2020 2:30 PM EDT documented as of this encounter Care Teams Section Cutter Relationship Specialty Start Date End Date Elmo Escobar MD PCP - General 10/18/20 01/05/23 Rafiq Song DO [address] [place] [id number] PCP - General 01/06/23 03/16/23 Pcp, No [address] [place] [address] PCP - General Family Medicine 03/18/23 03/25/23 Citlali Marquez, PHYSICAL THERAPY ASSISTANT [address] [place] [phone] PCP - General Family Medicine 03/26/23 10/19/23 Pcp, No [address] [place] [address] PCP - General Family Medicine 10/22/23 10/22/23 Lisa Foote, PHYSICAL THERAPY ASSISTANT [address] [place] [address] PCP - General 10/23/23 Tiffanie Gonzalez LPN [employer] [place] [address] Care Coordination Nurse 06/20/2207/18 Dipika Lorenzana LPN [employer]BASED TRANSFORMATION PROGRAM TCM Nurse 04/17/23 05/15/23 Amira Solis LPN [employer] [place] [address] TCM Nurse 12/03/23 12/03/23 Cally Tilley LPN [employer]ED [place] [address] TCM Nurse 12/03/23 01/01/24 documented as of this encounter
--- OUTSIDE RECORDS SUMMARY | 2024-02-03 15:23 | XMS_ITS | Encounter Summary ---
Author Organization [facility] Address [address] [place] [address] Care Team Providers Care Sausage Cooker Name Role Phone Elmo Escobar MD Primary Care Provider [phone] Encounter Details Date Type Department Care Team (Latest Contact Info) Description 12/20/2021 Travel Social History Tobacco Use Types Packs/Day [...] suspected to have Coronavirus/COVID-19? No / Unsure 12/20/2021 10:43 AM EDT documented as of this encounter Plan of Treatment Not on file documented as of this encounter Visit Diagnoses Not on filedocumented in this encounter Additional Health Concerns Assessment Noted Time A fall risk assessment has been complete d for the patient 11/21/2020 2:30 PM EDT documented as of this encounter Care Teams Sausage Cooker Relationship Specialty Start Date End Date Elmo Escobar MD PCP - General 10/18/20 01/05/23 documented as of this encounter
--- OUTSIDE RECORDS SUMMARY | 2024-02-03 15:23 | XMS_ITS | Encounter Summary ---
Author Organization [facility] Address [address] [place] [address] Care Team Providers Care Medical Videographer Name Role Phone Elmo Escobar MD Primary Care Provider [phone] Encounter Details Date Type Department Care Team (Latest Contact Info) Description 12/05/2021 Travel Social History Tobacco Use Types Packs/Day [...] suspected to have Coronavirus/COVID-19? No / Unsure 12/05/2021 12:28 PM EDT documented as of this encounter Plan of Treatment Not on file documented as of this encounter Visit Diagnoses Not on filedocumented in this encounter Additional Health Concerns Assessment Noted Time A fall risk assessment has been complete d for the patient 11/21/2020 2:30 PM EDT documented as of this encounter Care Teams Medical Videographer Relationship Specialty Start Date End Date Elmo Escobar MD PCP - General 10/18/20 01/05/23 documented as of this encounter
--- OUTSIDE RECORDS SUMMARY | 2024-02-03 15:23 | XMS_ITS | Encounter Summary ---
Author Organization Healthcare Address [address] [place] [address] Care Team Providers Care Banquet Houseperson Name Role Phone Elmo Escobar MD Primary Care Provider [phone] Reason for Visit * Reason Comments Abdominal Pain Encounter Details Date Type Department Care Team (Late st Contact Info) Description 12/15/2021 5:11 PM EDT - 12/15/2021 7:58 PM EDT Emergency [facility] Emergency Department [address] [place] [address] Left upper quadrant abdominal pain [...] suspected to have Coronavirus/COVID-19? No / Unsure 12/15/2021 5:08 PM EDT documented as of this encounter Last Filed Vital Signs Vital Sign Reading Time Taken Comments Blood Pressure 148/100 12/15/2021 7:18 PM EDT Pulse 87 12/15/2021 7:18 PM EDT Temperature 36.8 ??C (98.3 ??F) 12/15/2021 5:10 PM ED T Respiratory Rate 16 12/15/2021 7:18 PM EDT Oxygen Saturation 97% 12/15/2021 7:19 PM EDT Inhaled Oxygen Concentration - - Weight 105 kg (232 lb 2.3 oz) 12/15/2021 5:10 PM EDT Height 165.1 cm (5' 5 ) 12/15/2021 5:10 PM EDT Body Mass Index 38.63 12/15/2021 5:10 PM EDT documented in this encounter Discharge Instructions * Discharge Instructions* Abigail Thompson APRN - 12/15/2021 7:48 PM EDT Follow-up outpatient with primary care within the week. Clear liquid diet, advanced as tolerated. Any new or worsening symptoms please return to the emergency department * Attachments The following attachments cannot be sent through Care Everywhere. * Pain Response,??Understanding ([place]) documented in this encounter Medications at Time of Discharge naloxone (Narcan) 4 mg/0.1 mL nasal spray Administer 1 spray (4 mg total) into affected nostril(s) if needed for opioid reversal. Call 911. Give 4 mg (1 spray) into one nostril. Repeat every 2-3 minutes as needed, alternating nostrils, until medical assistance arrives. 1 each 11 05/24/2021 3 acetaminophen (Tylenol) 500 MG tablet Take 1,000 mg by mouth every 6 (six) hours if needed for mild pain. 3 hydrOXYzine pamoate (Vistaril) 50 MG capsule Take 1 capsule (50 mg total) by mouth every 6 (six) hours if needed for anxiety for up to 10 days. 30 capsule 05/27/2021 2 ketoconazole (NIZOral) 2 % cream Apply 1 application topically 2 (two) times a day. 2 Latuda 40 MG tablet Take 40 mg by mouth 1 (one) time each day with breakfast. 10/14/2020 3 Melatonin 10 MG tablet Take 10 tablets by mouth at night if needed (sleep). 2 oxyCODONE (Roxicodone) 15 MG immediate release tablet Take 15 mg by mouth every 6 (six) hours if needed for severe pain. 2 oxyCODONE (Roxicodone) 5 MG immediate release tablet Take 5 mg by mouth 1 (one) time each day if needed. Take one tablet by mouth three times a day to four times a day 12/13/2021 3 pancrelipase, Xer-Ywbw-Nqjg, (Creon) [address]5089-[address]673 units capsule Take 2 capsules by mouth 3 (three) times a day with meals. 3 pantoprazole (Protonix) 40 MG EC tablet Take 1 tablet (40 mg total) by mouth 2 (two) times a day. Do not crush, chew, or split. 120 tablet 04/20/2021 3 pregabalin (Lyrica) 100 MG capsule Take 1 capsule (100 mg) by mouth 3 (three) times a day. 4 promethazine (Phenergan) 25 MG tablet Take 25 mg by mouth every 6 (six) hours if needed. 12/15/2021 3 sucralfate (Carafate) 1 GM/10ML suspension Take 10 mL (1 g total) by mouth 4 (four) times a day (with meals and nightly). 420 mL 05/27/2021 2 venlafaxine XR (Effoxor-XR) 150 MG 24 hr capsule Take 150 mg by mouth 1 (one) time each day. 07/07/2020 3 documented as of this encounter Miscellaneous Notes * ED Notes - Augusto Tyson - 12/15/2021 7:56 PM EDT Pt states she understands all discharge and follow up instructions. Pt ambulates out of ER with mother with a steady gait in no distress. Augusto Tyson 12/15/211956 * ED Notes - Augusto Tyson - 12/15/2021 7:05 PM EDT Care assumed at this time. Pt alert and oriented x's 4, rr unlabored, skin wpd, pt crying stating she wants pain meds, provider aware. Augusto Tyson 12/15/211920 * ED Provider Notes - Abigail Thompson APRN - 12/15/2021 4:51 PM EDT HPI Chief Complaint Patient presents with Abdominal Pain Lila Mcnally is a 35 y.o. female PMH chronic pancreatitis who presents to the Emergency Department with complaints of epigastric and LUQ abdominal pain x2 days. Was seen in the emergency department 10 days ago for same, discharged home and next day had to go to outside hospital ED where she states they kept her overnight for pancreatitis as her lipase was 300. She denies any recent alcohol use. Was able to take oxycodone this morning and 1-2 hours prior to arrival to the ED without any episodes of nausea or vomiting but otherwise has had abdominal pain to left upper quadrant and epigastric area that radiates around to her back with multiple episodes of nausea and vomiting over the past 2 days. Denies any hematemesis. Denies any diarrhea or constipation. States abdominal pain feels like her usual chronic pancreatitis. Denies any fevers or chills, headache, vision changes, chest pain,shortness of breath, cough, dysuria symptoms. 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 by: Patient No data recorded Patient History Past Medical History: Diagnosis Date Anxiety Arthritis Depression Fibromyalgia GERD (gastroesophageal reflux disease) Hypertension Nicotine dependence Obesity Pancreatitis Past Surgical History: Procedure Laterality Date CHOLECYSTECTOMY ERCP ESOPHAGOGASTRODUODENOSCOPY HAND SURGERY Family History Problem Relation Name Age of Onset Hypertension Mother No Known Problems Father Tobacco Use Smoking status: Every Day Packs/day: 0.50 Years: 15.00 Pack years: 7.50 Types: Cigarettes Smokeless tobacco: Never Vaping Use Vaping Use: Never used Substance Use Topics Alcohol use: Not Currently Comment: Alcoholic Drinks/day: Minimum alcohol consumption Drug use: Not Currently Frequency: 4.0 times per week Comment: daily use Immunization History Immunization History: not reviewed Allergies: Allergies Allergen Reactions Droperidol Other Experienced an acute dystonic reaction treated with diphenhydramine Morphine And Related Other Abdominal pain Tramadol Dizziness and Rash Review of Systems [...] are negative. Physical Exam ED Triage Vitals [12/15/21 1710] Temp Heart Rate Resp BP 36.8 ??C (98.3 ??F) 84 18 135/88 SpO2 Temp Source Heart Rate Source Patient Position 98 % Oral -- -- BP Location FiO2 (%) -- -- Physical Exam Vitals and nursing note reviewed. Constitutional: General: She is not in acute distress. Appearance: She is obese. HENT: Head: Normocephalic. Right Ear: External ear [...] Course & MDM Clinical Impressions as of 12/15/212055 Left upper quadrant abdominal pain ED Disposition: MDM Number of Diagnoses or Management Options Left upper quadrant abdominal pain Diagnosis management comments: Lila Mcnally is a 35 yrs old female presents today for abdominalpain. Differential diagnosis includes pancreatitis, appendicitis, mesenteric ischemia. In order to fully explore differential these tests and treatments were ordered. Orders Placed This Encounter CMP Lipase Lactic acid, venous Ethyl Alcohol Plasma hCG qualitative CBC Urinalysis with reflex microscopic Drug abuse screen Medications sodium chloride 0.9% infusion 1,000 mL (has no administration in time range) ondansetron (Zofran) injection 4 mg (has no administration in time range) HYDROmorphone (Dilaudid) injection 0.5 mg (has no administration in time range) Old records for this patient were reviewed and found to be pertinent. Records review indicates thatpatient has been seen in ED for pancreatitis previously. [facility] did present to their ER today and those of the records they did send over. Labs showed no acute findings and no elevated lipase at outside hospital ED today. Lab results were reviewed independently and can be interpreted as non actionable. Lab Results Labs Reviewed COMPREHENSIVE METABOLIC PANEL, PLASMA - Abnormal Glucose, Plasma 85 BUN, Plasma <3 (*) Creatinine, Plasma 0.50 (*) BUN/Creatinine Ratio Sodium, Plasma 142 Potassium, Plasma 4.2 Chloride, Plasma 107 CO2, Plasma 24 Anion Gap 11 Total Calcium, Plasma 8.6 (*) Total Protein 6.4 Albumin, Plasma 3.8 AST, Plasma 33 (*) ALT, Plasma 45 (*) Alkaline Phosphatase, Plasma 116 (*) Total Bilirubin, Plasma <0.2 (*) eGFRcr 126.4 CBC W/O DIFFERENTIAL - Abnormal WBC Count 6.05 RBC Count 3.84 (*) HGB 10.8 (*) HCT 33.1 (*) Platelet Count 249 MCV 86 MCH 28.1 MCHC 32.6 RDW 16.5 (*) MPV 8.9 nRBC 0.0 LIPASE, PLASMA - Normal Lipase, Plasma 50 LACTATE, VENOUS - Normal Lactate, Venous, Whole Blood 1.8 ETHYL ALCOHOL PLASMA - Normal Ethanol Plasma <10 TEST QUALITATIVE PLASMA - Normal Test Negative Narrative: Reference Range: Males and non- females: Negative. URINALYSIS WITH REFLEX MICROSCOPIC Color, Urine Yellow Clarity, Urine Clear Spec [place], Urine 1.011 pH, Urine 6.0 Protein, Urine Negative Glucose, Urine Negative Ketones, Urine Negative Blood, Urine Negative Bilirubin, Urine Negative Urobilinogen, Urine 0.2 Leukocytes, Urine Negative Nitrite, Urine Negative DRUG ABUSE SCREEN, URINE Amphetamine Screen Urine Negative Benzodiazepines Screen Urine Negative Cannabinoid Screen Urine Cocaine Screen Urine Negative Barbiturate Screen Urine Negative Opiate Screen Urine Methadone Screen Urine Negative Buprenorphine Screen Urine Negative Fentanyl Screen Urine Negative Oxycodone Screen Urine THC URINE CONFIRM OPIATES, LCMSMS, URINE Imaging -not warranted this ED visit as patient reports pain feels like her usual chronic pancreatitis and pre previous record review CT abd/pelvis from OSH 12/04/21 no acute findings. Patient reevaluated after treatments provided and condition improved with medications given. Based on work up today patient did not require consult with any service Ultimately, this patient was Discharged Home (Discharge) The encounter diagnosis was Left upper quadrant abdominal pain. . Patient was counseledon the diagnoses. Patient is requested to follow up with PCP and GI in order to obtain routine follow-up. Instructions on follow up as well as precautions to return to the ER provided verbally by theEDAPP, as well as written in patients discharge education packet. Patient requesting additional dilaudid, discussed with her that she has no acute findings on her labs and patient became tearful, requesting additional pain medication, she was given oxycodone 10 mg oral x1 dose and requested to follow-up outpatient with primary care and GI clinic for additional discussion about pain management. Patient and mother verbalized understanding. Per review of records from outside hospital ED visit today she received no narcotic pain medication per previous ED visit at OSH today. Amount and/or Complexity of Data Reviewed Clinical lab tests: reviewed Decide to obtain previous medical records or to obtain history from someone other than the patient:yes Patient Progress Patient progress: stable ED Prescriptions None Sign Off Checklist Clinical Impression: Complete ED Disposition: Complete Abigail Thompson APRN 12/15/212110 Cosigned by George Martinez MD at 12/15/2021 10:43 PM EDT Associated attestation - George Martinez MD - 12/15/2021 10:43 PM EDT The patient was seen only by Advanced Practice Provider (AJAY), and care was reviewed with me. * ED Triage Notes - Afia Jernigan RN - 12/15/2021 4:51 PM EDT Patient states she has severe chronic pancreatitis and the pain is starting epigastric and radiatesto the left and around to her back. Patient goes on to say she was hospitalized last week in [place]. documented in this encounter Plan of Treatment Not on file documented as of this encounter Procedures Procedure Name Priority Date/Time Associated Diagnosis Comments OPIATES, LCMSMS, URINE STAT 6:27 PM EDT DRUG ABUSE SCREEN, URINE STAT 12/15/2021 6:27 PM EDT THC URINE CONFIRM STAT 12/15/2021 6:2 7 PM EDT URINALYSIS WITH REFLEX MICROSCOPIC STAT 12/15/2021 6:27 PM EDT LACTATE, VENOUS STAT 12/15/2021 5:48 PM EDT ETHYL ALCOHOL PLASMA STAT 12/15/2021 5:48 PM EDT CBC W/O DIFFERENTIAL STAT 12/15/2021 5:48 PM EDT TEST QUALITATIVE PLASMA STAT 12/15/2021 5:48 PM EDT LIPASE, PLASMA STAT 12/15/2021 5:48 PM EDT COMPREHENSIVE METABOLIC PANEL, PLASMA STAT 12/15/2021 5:48 PM EDT documented in this encounter Results * (ABNORMAL) Opiates Confirm Urine (12/15/2021 6:27 PM EDT) Codeine <50 <50 ng/mL 12/19/2021 10:42 AM EDT [facility] Codeine Glucuronide <50 <50 ng/mL 12/19/2021 10:42 AM EDT [facility] Desmethyl Tramadol <50 <50 ng/mL 12/19/2021 10:42 AM EDT [facility] EDDP - Methadone Metabolite <50 <50 ng/mL 12/19/2021 10:42 AM EDT [facility] Hydrocodone <50 <50 ng/mL 12/19/2021 10:42 AM EDT [facility] Hydromorphone 119(H) <50 ng/mL 12/19/2021 10:42 AM EDT [facility] Hydromorphone Glucuronide >1,000(H) <50 ng/mL 12/19/2021 10:42 AM EDT [facility] Comment:Metabolite of Hydrom orphone Meperidine <50 <50 ng/mL 12/19/2021 10:42 AM EDT [facility] Methadone <50 <50 ng/mL 12/19/2021 10:42 AM EDT [facility] 6 Monoacetyl morphine <10 <10 ng/mL 12/19/2021 10:42 AM EDT [facility] Morphine 71(H) <50 ng/mL 12/19/2021 10:42 AM EDT [facility] Morphine Glucuronide >1,000(H) <50 ng/mL 12/19/2021 10:42 AM EDT [facility] Comment:Metabolite of Morphi ne Naloxone <50 <50 ng/mL 12/19/2021 10:42 AM EDT [facility] Naloxone Glucuronide <50 <50 ng/mL 12/19/2021 10:42 AM EDT [facility] Comment:Metabolite of Naloxo ne Normeperidine <50 <50 ng/mL 12/19/2021 10:42 AM EDT [facility] Oxycodone 697(H) <50 ng/mL 12/19/2021 10:42 AM EDT [facility] Oxymorphone <50 <50 ng/mL 12/19/2021 10:42 AM EDT [facility] Oxymorphone Glucuronide >1,000(H) <50 ng/mL 12/19/2021 10:42 AM EDT [facility] Comment:Metabolite of Oxymor phone Tramadol <50 <50 ng/mL 12/19/2021 10:42 AM EDT [facility] Urine Urine specimen obtained by clean catch procedure / Unknown Non-blood Collection / Unknown 12/15/2021 6:27 PM EDT 12/15/2021 6:40 PM EDT Narrative [facility] - 12/19/2021 10:42 AM EDT Drug analysis is confirmed by LC-MS/MS (LC Tandem Mass Spectrometry) on Urine specimens. ?? This test was developed and its performance characteristics determined by [facility]. It has not been cleared or approved by the FDA. The laboratory is regulated under CLIA as qualified to perform high-complexity testing. This test is used for clinical purposes. Testing is performed at the [facility]. Abigail Thompson APRN LAB URINE ORDERABLES Final Result [facility] [address] [place] [address] * (ABNORMAL) THC Urine Confirm LCMSMS (12/15/2021 6:27 PM EDT) 9 Carboxy THC <10 <10 ng/mL 12/19/2021 10:41 AM EDT [facility] 9 Carboxy THC Glucuronide 90(H) <25 ng/mL 12/19/2021 10:41 AM EDT [facility] Urine Urine specimen obtained by clean catch procedure / Unknown Non-blood Collection / Unknown 12/15/2021 6:27 PM EDT 12/15/2021 6:40 PM EDT Narrative [facility] - 12/19/2021 10:41 AM EDT Drug analysis is confirmed by LC-MS/MS (LC Tandem Mass Spectrometry) on Urine specimens. ?? This test was developed and its performance characteristics determined by [facility]. It has not been cleared or approved by the FDA. The laboratory is regulated under CLIA as qualified to perform high-complexity testing. This test is used for clinical purposes. Testing is performed at the [facility]. us Abigail Thompson APRN LAB URINE ORDERABLES Final Result [facility] [address] [place] [address] * Drug abuse screen (12/15/2021 6:27 PM EDT) [facility] Amphetamine Screen Urine Negative Cutoff: 500 ng/mL 12/15/2021 7:04 PM EDT [facility] Benzodiazepines Screen Urine Negative Cutoff: 200 ng/mL 12/15/2021 7:04 PM EDT [facility] Cannabinoid Screen Urine Presumptive positive. Confirmation by LC-MS/MS to follow. Cutoff: 50 ng/mL 12/15/2021 7:04 PM EDT [facility] Cocaine Screen Urine Negative Cutoff: 300 ng/mL 12/15/2021 7:04 PM EDT [facility] Barbiturate Screen Urine Negative Cutoff: 200 ng/mL 12/15/2021 7:04 PM EDT [facility] Opiate Screen Urine Presumptive positive. Confirmation by LC-MS/MS to follow. Cutoff: 300 ng/mL 12/15/2021 7:04 PM EDT [facility] Methadone Screen Urine Negative Cutoff: 300 ng/mL 12/15/2021 7:04 PM EDT [facility] Buprenorphine Screen Urine Negative Cutoff: 10 ng/mL 12/15/2021 7:04 PM EDT [facility] Fentanyl Screen Urine Negative Cutoff: 1 ng/mL 12/15/2021 7:04 PM EDT [facility] Oxycodone Screen Urine Presumptive positive. Confirmation by LC-MS/MS to follow. Cutoff: 100 ng/mL 12/15/2021 7:04 PM EDT [facility] Urine Urine specimen obtained by clean catch procedure / Unknown Non-blood Collection / Unknown 12/15/2021 6:27 PM EDT 12/15/2021 6:40 PM EDT us Abigail Thompson APRN LAB URINE ORDERABLES Final Result Performing Organization Address City/[facility]/ZIP Co de Phone Number [facility] [address] [place] [address] * Urinalysis with reflex microscopic (12/15/2021 6:27 PM EDT) Color, Urine Yellow LAB URINALYSIS - AUTOMATED METHOD 12/15/2021 6:45 PM EDT [facility] Clarity, Urine Clear LAB URINALYSIS - AUTOMATED METHOD 12/15/2021 6:45 PM EDT [facility] Spec [place], Urine 1.011 <=1.005 to >=1.030 LAB URINALYSIS - AUTOMATED METHOD 12/15/2021 6:45 PM EDT [facility] pH, Urine 6.0 4.5 to 8 LAB URINALYSIS - AUTOMATED METHOD 12/15/2021 6:45 PM EDT [facility] Protein, Urine Negative Negative mg/dL LAB URINALYSIS - AUTOMATED METHOD 12/15/2021 6:45 PM EDT [facility] Glucose, Urine Negative Negative mg/dL LAB URINALYSIS - AUTOMATED METHOD 12/15/2021 6:45 PM EDT [facility] Ketones, Urine Negative Negative mg/dL LAB URINALYSIS - AUTOMATED METHOD 12/15/2021 6:45 PM EDT [facility] Blood, Urine Negative Negative LAB URINALYSIS - AUTOMATED METHOD 12/15/2021 6:45 PM EDT [facility] Bilirubin, Urine Negative Negative LAB URINALYSIS - AUTOMATED METHOD 12/15/2021 6:45 PM EDT [facility] Urobilinogen, Urine 0.2 0.2 to 1.0 mg/dL LAB URINALYSIS - AUTOMATED METHOD 12/15/2021 6:45 PM EDT [facility] Leukocytes, Urine Negative Negative LAB URINALYSIS - AUTOMATED METHOD 12/15/2021 6:45 PM EDT [facility] Nitrite, Urine Negative Negative LAB URINALYSIS - AUTOMATED METHOD 12/15/2021 6:45 PM EDT [facility] Urine Urine specimen obtained by clean catch procedure / Unknown Non-blood Collection / Unknown 12/15/2021 6:27 PM EDT 12/15/2021 6:40 PM EDT Abigail Thompson APRN LAB URINE ORDERABLES Final Result [facility] [address] [place] [address] * (ABNORMAL) CBC (12/15/2021 5:48 PM EDT) WBC Count 6.05 3.70 - 10.30 10*3/uL LAB HEMATOLOGY METHOD 12/15/2021 6:00 PM EDT [facility] RBC Count 3.84(L) 3.90 - 5.20 10*6/uL LAB HEMATOLOGY METHOD 12/15/2021 6:00 PM EDT [facility] HGB 10.8(L) 11.2 - 15.7 g/dL LAB HEMATOLOGY METHOD 12/15/2021 6:00 PM EDT [facility] HCT 33.1(L) 34.0 - 45.0 % LAB HEMATOLOGY METHOD 12/15/2021 6:00 PM EDT [facility] Platelet Count 249 155 - 369 10*3/uL LAB HEMATOLOGY METHOD 12/15/2021 6:00 PM EDT [facility] MCV 86 79 - 98 fL LAB HEMATOLOGY METHOD 12/15/2021 6:00 PM EDT [facility] MCH 28.1 26.0 - 32.0 pg LAB HEMATOLOGY METHOD 12/15/2021 6:00 PM EDT [facility] MCHC 32.6 30.7 - 35.5 g/dL LAB HEMATOLOGY METHOD 12/15/2021 6:00 PM EDT [facility] RDW 16.5(H) 11.5 - 14.5 % LAB HEMATOLOGY METHOD 12/15/2021 6:00 PM EDT [facility] MPV 8.9 8.8 - 12.5 fL LAB HEMATOLOGY METHOD 12/15/2021 6:00 PM EDT [facility] nRBC 0.0 <=0.0 per 100 WBCs LAB HEMATOLOGY METHOD 12/15/2021 6:00 PM EDT [facility] Blood Venous blood specimen / Unknown Venipuncture / Unknown 12/15/2021 5:48 PM EDT 12/15/2021 5:56 PM EDT us Abigail Thompson APRN LAB BLOOD ORDERABLES Final Result [facility] [address] [place] [address] * hCG qualitative (12/15/2021 5:48 PM EDT) Pathologist [facility] Test Negative Negative 12/15/2021 6:48 PM EDT [facility] Blood Venous blood specimen / Unknown Venipuncture / Unknown 12/15/2021 5:48 PM EDT 12/15/2021 5:56 PM EDT Narrative [facility] - 12/15/2021 6:48 PM EDT Reference Range: Males and non- females: Negative. Abigail Thompson APRN LAB BLOOD ORDERABLES Final Result [facility] [address] [place] [address] * Ethyl Alcohol Plasma (12/15/2021 5:48 PM EDT) [facility] Ethanol Plasma <10 <10 mg/dL 12/15/2021 6:48 PM EDT [facility] Blood Venous blood specimen / Unknown Venipuncture / Unknown 12/15/2021 5:48 PM EDT 12/15/2021 5:56 PM EDT Abigail Thompson APRN LAB BLOOD ORDERABLES Final Result Performing Organization Address City/[facility] Co de Phone Number [facility] [address] [place] [address] * Lactic acid, venous (12/15/2021 5:48 PM EDT) [facility] Lactate, Venous, Whole Blood 1.8 0.5 - 2.2 mmol/L LAB HEMATOLOGY METHOD 12/15/2021 6:00 PM EDT [facility] Blood Venous blood specimen / Unknown Venipuncture / Unknown 12/15/2021 5:48 PM EDT 12/15/2021 5:56 PM EDT Abigail Thompson APRN LAB BLOOD ORDERABLES Final Result Performing Organization Address City/[facility]/ZIP Co de Phone Number [facility] [address] [place] [address] * Lipase (12/15/2021 5:48 PM EDT) Lipase, Plasma 50 19 - 63 U/L 12/15/2021 6:48 PM EDT [facility] Blood Venous blood specimen / Unknown Venipuncture / Unknown 12/15/2021 5:48 PM EDT 12/15/2021 5:56 PM EDT Abigail Thompson [employer] LAB BLOOD ORDERABLES Final Result [facility] [address] [place] [address] * (ABNORMAL) CMP (12/15/2021 5:48 PM EDT) Pathologist [facility] Glucose, Plasma 85 74 - 99 mg/dL 12/15/2021 6:50 PM EDT [facility] BUN, Plasma <3(L) 7 - 21 mg/dL 12/15/2021 6:50 PM EDT [facility] Creatinine, Plasma 0.50(L) 0.60 - 1.10 mg/dL 12/15/2021 6:50 PM EDT [facility] BUN/Creatinine Ratio 12/15/2021 6:50 PM EDT [facility] Comment:Unable to calculate, at least one value is above or below the detection limit. Sodium, Plasma 142 136 - 145 mmol/L 12/15/2021 6:50 PM EDT [facility] Potassium, Plasma 4.2 3.7 - 4.8 mmol/L 12/15/2021 6:50 PM EDT [facility] Comment:Reference range for Serum potassium is 0.2 to 0.5 mmol/L higher than Plasma range. Chloride, Plasma 107 97 - 107 mmol/L 12/15/2021 6:50 PM EDT [facility] CO2, Plasma 24 22 - 29 mmol/L 12/15/2021 6:50 PM EDT [facility] Anion Gap 11 6 - 16 mmol/L 12/15/2021 6:50 PM EDT [facility] Total Calcium, Plasma 8.6(L) 8.9 - 10.2 mg/dL 12/15/2021 6:50 PM EDT [facility] Total Protein 6.4 6.3 - 7.9 g/dL 12/15/2021 6:50 PM EDT [facility] Albumin, Plasma 3.8 3.5 - 5.2 g/dL 12/15/2021 6:50 PM EDT [facility] AST, Plasma 33(H) 11 - 32 U/L 12/15/2021 6:50 PM EDT [facility] ALT, Plasma 45(H) 8 - 33 U/L 12/15/2021 6:50 PM EDT [facility] Alkaline Phosphatase, Plasma 116(H) 35 - 104 U/L 12/15/2021 6:50 PM EDT [facility] Total Bilirubin, Plasma <0.2(L) 0.2 - 1.1 mg/dL 12/15/2021 6:50 PM EDT [facility] eGFRcr 126.4 mL/min/1.7 3m*2 12/15/2021 6:50 PM EDT [facility] Comment: Reported eGFRcr in mL/min/1.73m2 is based the CKD-EPI 2021 equation that does not use a race coefficient. Effective 09/18/21 our laboratory changed the eGFR calculation to the CKD-EPI 2021 equation from the previously reported eGFR, based on the MDRD equation. ??For comparisons between the two equations, please see laboratory website: ??[email or web address] Blood Venous blood specimen / Unknown Venipuncture / Unknown 12/15/2021 5:48 PM EDT 12/15/2021 5:56 PM EDT us Abigail Thompson APRN LAB BLOOD ORDERABLES Final Result [facility] [address] [place] [id number] documented in this encounter Visit Diagnoses Diagnosis Left upper quadrant abdominal pain- Primary documented in this encounter Administered Medications Inactive Administered Medications - up to 3 most recent administrations Medication Order MAR Action Action Date Dose Rate Site HYDROmorphone (Dilaudid) injection 0.5 mg 0.5 mg, Intravenous, Once, 1 dose, On 12/15/21 at 1730, STAT Given 12/15/2021 5:49 PM EDT 0.5 mg ondansetron (Zofran) injection 4 mg 4 mg, Intravenous, Once, 1 dose, On 12/15/21 at 1730, STAT Given 12/15/2021 5:50 PM EDT 4 mg oxyCODONE (Roxicodone) immediate release tablet 10 mg 10 mg, Oral, Once, 1 dose, On 12/15/21 at 1950, Routine Given 12/15/2021 7:50 PM EDT 10 mg sodium chloride 0.9% infusion 1,000 mL 1,000 mL, Intravenous, Once, 1 dose, On 12/15/21 at 1730, STAT New Bag 12/15/2021 5:48 PM EDT 1,000 mL documented in this encounter Active and Recently Administered Medications Times are shown in EDT. Scheduled Medication Order 12/13/2021 12/14/2021 12/15/2021 HYDROmorphone (Dilaudid) injection 0.5 mg (COMPLETED) 0.5 mg, Intravenous, Once, 1 dose, On 12/15/21 at 1730, STAT 1749 (Given - Provid er: Mayra Lawler RN) ondansetron (Zofran) injection 4 mg (COMPLETED) 4 mg, Intravenous, Once, 1 dose, On 12/15/21 at 1730, STAT 1750 (Given - Provid er: Mayra Lawler RN) oxyCODONE (Roxicodone) immediate release tablet 10 mg (COMPLETED) 10 mg, Oral, Once, 1 dose, On 12/15/21 at 1950, Routine 1950 (Given - Provid er: Augusto Tyson) sodium chloride 0.9% infusion 1,000 mL (COMPLETED) 1,000 mL, Intravenous, Once, 1 dose, On 12/15/21 at 1730, STAT 1748 (New Bag - Prov ider: Mayra Lawler RN)1951 (Stopped - Provider: Augusto Tyson) documented in this encounter Additional Health Concerns Assessment Noted Time A fall risk assessment has been complete d for the patient 11/21/2020 2:30 PM EDT documented as of this encounter Care Teams Banquet Houseperson Relationship Specialty Start Date End Date Elmo Escobar MD PCP - General 10/18/20 01/05/23 documented as of this encounter
--- OUTSIDE RECORDS SUMMARY | 2024-02-03 15:23 | XMS_ITS | Encounter Summary ---
Author Organization [facility] Address [address] [place] [address] Care Team Providers Care Stock Taker Name Role Phone Elmo Escobar MD Primary Care Provider [phone] Encounter Details Date Type Department Care Team (Latest Contact Info) Description 03/20/2022 Travel Social History Tobacco Use Types Packs/Day [...] suspected to have Coronavirus/COVID-19? No / Unsure 03/20/2022 12:53 PM EST documented as of this encounter Plan of Treatment Not on file documented as of this encounter Visit Diagnoses Not on filedocumented in this encounter Additional Health Concerns Assessment Noted Time A fall risk assessment has been complete d for the patient 11/21/2020 2:30 PM EDT documented as of this encounter Care Teams Stock Taker Relationship Specialty Start Date End Date Elmo Escobar MD PCP - General 10/18/20 01/05/23 documented as of this encounter
--- OUTSIDE RECORDS SUMMARY | 2024-02-03 15:23 | XMS_ITS | Encounter Summary ---
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 extremities spontaneously. Patient appears drowsy but is able to participate in interview Data: Recent Results (from the past 24 hour(s)) POCT glucose meter Collection Time: 12/20/21 10:22 AM Result Value Ref Range POCT Glucose 161 (H) 74 - 99 mg/dL Comment Patient Service Technician Pst ID Clif Venegas Device ID [id number] Specimen Type POC Capillary EKG now - STAT (adult) Collection Time: 12/20/21 10:27 AM Result Value Ref Range EKG DIAGNOSIS CLASS Abnormal Ventricular Rate 91 BPM Atrial Rate 91 BPM CA Interval 144 ms QRSD Interval 90 ms QT Interval 386 ms QTC Interval 474 ms P [place] 35 degrees R [place] 24 degrees T Wave [place] 32 degrees Diagnosis Normal sinus rhythm Diagnosis Cannot rule out Diagnosis Anterior infarct Diagnosis , age undetermined Diagnosis Abnormal ECG CMP Collection Time: 12/20/21 10:30 AM Result Value Ref Range Glucose, Plasma 150 (H) 74 - 99 mg/dL BUN, Plasma 7 7 - 21 mg/dL Creatinine, Plasma 0.47 (L) 0.60 - 1.10 mg/dL BUN/Creatinine Ratio 15 Sodium, Plasma 139 136 - 145 mmol/L Potassium, Plasma 4.2 3.7 - 4.8 mmol/L Chloride, Plasma 104 97 - 107 mmol/L CO2, Plasma 23 22 - 29 mmol/L Anion Gap 12 6 - 16 mmol/L Total Calcium, Plasma 8.0 (L) 8.9 - 10.2 mg/dL Total Protein 5.9 (L) 6.3 - 7.9 g/dL Albumin, Plasma 3.5 3.5 - 5.2 g/dL AST, Plasma 29 11 - 32 U/L ALT, Plasma 20 8 - 33 U/L Alkaline Phosphatase, Plasma 88 35 - 104 U/L Total Bilirubin, Plasma <0.2 (L) 0.2 - 1.1 mg/dL eGFRcr 127.5 mL/min/1.73m*2 Free T4 Collection Time: 12/20/21 10:30 AM Result Value Ref Range Free T4, Plasma 0.9 0.8 - 1.7 ng/dL Ethyl Alcohol Plasma Collection Time: 12/20/21 10:30 AM Result Value Ref Range Ethanol Plasma <10 <10 mg/dL hCG qualitative Collection Time: 12/20/21 10:30 AM Result Value Ref Range Test Negative Negative Blood gas panel, venous Collection Time: 12/20/21 10:30 AM Result Value Ref Range pH, Venous 7.40 7.32 - 7.43 pCO2, Venous 45 37 - 52 mmHg pO2, Venous 56 (H) 25 - 40 mmHg SO2, Measured, Venous 90.7 (H) 65 - 80 % Base Excess, Venous 2.4 -2.0 - 3.0 mmol/L Bicarbonate, Calculated, Venous 28 (H) 22 - 26 mmol/L Hematocrit, Whole Blood 33.8 (L) 34.0 - 45.0 % Sodium, Whole Blood 141 136 - 145 mmol/L Potassium, Whole Blood 3.4 (L) 3.6 - 4.9 mmol/L Chloride, Whole Blood 103 97 - 107 mmol/L Glucose, Whole Blood 161 (H) 74 - 99 mg/dL Lactate, Venous, Whole Blood 3.0 (H) 0.5 - 2.2 mmol/L Ionized Calcium, Whole Blood 4.7 4.6 - 5.1 mg/dL CBC Collection Time: 12/20/21 10:30 AM Result Value Ref Range WBC Count 8.10 3.70 - 10.30 10*3/uL RBC Count 4.06 3.90 - 5.20 10*6/uL HGB 11.3 11.2 - 15.7 g/dL HCT 34.9 34.0 - 45.0 % Platelet Count 288 155 - 369 10*3/uL MCV 86 79 - 98 fL MCH 27.8 26.0 - 32.0 pg MCHC 32.4 30.7 - 35.5 g/dL RDW 15.9 (H) 11.5 - 14.5 % MPV 8.8 8.8 - 12.5 fL nRBC 0.0 <=0.0 per 100 WBCs Salicylate level Collection Time: 12/20/21 10:30 AM Result Value Ref Range Salicylate, Quantitative, Plasma <1.0 <25 mg/dL mg/dL Acetaminophen, Quantitative, Plasma Collection Time: 12/20/21 10:30 AM Result Value Ref Range Acetaminophen 20.7 10.0 - 30.0 ??g/mL Lipase Collection Time: 12/20/21 10:30 AM Result Value Ref Range Lipase, Plasma 40 19 - 63 U/L SARS-CoV-2 COVID-19/Influenza A,B Collection Time: 12/20/21 10:53 AM Specimen: Nasopharynx; Swab Result Value Ref Range SARS CoV-2/COVID-19 RNA PCR Result Not Detected Not Detected Influenza A Virus PCR Result Not Detected Not Detected Influenza B Virus PCR Result Not Detected Not Detected Drug abuse screen Collection Time: 12/20/21 11:14 AM Result Value Ref Range Amphetamine Screen Urine Negative Cutoff: 500 ng/mL Benzodiazepines Screen Urine Negative Cutoff: 200 ng/mL Cannabinoid Screen Urine Cutoff: 50 ng/mL Presumptive positive. Confirmation by LC-MS/MS to follow. Cocaine Screen Urine Negative Cutoff: 300 ng/mL Barbiturate Screen Urine Negative Cutoff: 200 ng/mL Opiate Screen Urine Negative Cutoff: 300 ng/mL Methadone Screen Urine Negative Cutoff: 300 ng/mL Buprenorphine Screen Urine Negative Cutoff: 10 ng/mL Fentanyl Screen Urine Negative Cutoff: 1 ng/mL Oxycodone Screen Urine Cutoff: 100 ng/mL Presumptive positive. Confirmation by LC-MS/MS to follow. Assessment/Plan Diagnoses: Adjustment disorder Chronic pain Possible cluster B traits Risk Assessment: Patient is not currently at an acutely elevated risk of harm to self or others. She is not currently endorsing SI and HI. Patient is at chronically elevated risk due to joblessness and continued substance use, none of which are modifiable by inpatient hospitalization. As such, patient appears to beat chronically elevated baseline. Protective factors include future orientation. Involuntary psychiatric hospitalization on a 72 hour hold for safety and crisis stabilization is not currently indicated. Patient is not holdable under KRS as she does not meet ALL hold criteria: having a mental illness, being an acute risk of harm to self or others, reasonable expectation of benefit from admissi on, AND inpatient being least restrictive means of treatment. Formulation: Lila Mcnally is a 36 y.o. female with reported past history of bipolar disorder and anxiety that wasadmitted for suspected suicide attempt via five tablets of Latuda and five tablets of Effexor. Psychiatry consulted for risk assessment. At home, patient takes Effexor 150mg daily and Latuda 40mg daily for her bipolar disorder in addition to Ativan 1mg daily and Lyrica 300mg BID for anxiety and fibromyalgia. UDS positive for THC and oxycodone. Family history significant for anxiety and depression, but denies history of attempted or completed suicides in family. Mental status exam is significantfor endorsed mood of in pain , with constricted affect, linear/logical thought process, appears mildly somnolent and denies current SI/HI/AH along with denying suicidal ideation or intent at time ofintentional ingestion of medication. Patient states that intent of taking medication was for quick resolution of her abdominal pain as the oxycodone was not acting quickly enough and denies that it was to end her life or to go to sleep and not wake up. Also denies AVH or intrusive thoughts commanding her to take the medication. Most likely diagnosis at this time is adjustment disorder in the setting of chronic pain, given impulsive response of taking medication in attempt to alleviate pain along with significant impact of pain on current presentation. Difficult to exclude cluster B traits, given history of reported impulsivity, trauma, and prior history of self-harm. As documented above, david carreon reported initially taking two of Latuda and venlafaxine to one provider and later five of Latuda and venlafaxine. Uncertain if this was intentional, as patient reported to previously providing somewhat inaccurate information in prior admission at [facility] to achieve admission for depression. Bipolar disorder diagnosis would require further exploration in outpatient setting, given patient's denialof history of manic symptoms and only reported chronic distractibility. Could possibly have diagnosis of bipolar II disorder or could be intertwining with possible cluster B personality disorder as evidenced by impulsivity, but this would require further discussion with outpatient behavioral healthprovider. Patient and Asiya (her parent) agree to safety plan, including limiting access to medications, being available should the patient need to contact them, establishing outpatient followup, attending outpatient follow-up, abstaining from mind-altering substances, and returning to nearest ED or calling 911 with new or worsening symptoms, including active SI. Patient is not at an acutelyelevated risk of harm to self or others, as per risk assessment. Therefore, involuntary admission is not indicated. Recommendations: - Can remove 72 hour hold as patient is denying current SI/HI/AVH and also reports that intentionalingestion was in attempt to alleviate pain rather than to end her life - Can resume home Latuda 40mg daily and Effexor 150mg daily when medically appropriate given patient reports benefit and stability on meds without interest in changing at this time - Can also consider initiating home Ativan or Lyrica when patient improves in alertness - Safety planning performed with patient and mother as described above in formulation. Instructed to present to ED or call 911 with new or worsening symptoms, including active SI. Patient's mother stated that she will secure and control distribution of patient's medication to her for the next week,similar to how she was in charge of patient's oxycodone. Confirmed that she will remain with patient for the next week after discharge from the hospital and that patient has appointment with pain management physician on Thursday for pain from chronic pancreatitis - Offered outpatient behavioral health resources; however, patient did not desire this at this time. Provided with address and number for [place] in [facility] per mother's preference and encouraged to establish care with therapist given history of trauma and stressors with chronic pain - Reviewed DAMIAN (Request #[id number]) on 12/20/21 - Further management per primary team Thank you for allowing us to participate in the care of this patient. Psychiatry will sign off at this time. Please page or call with any concerns or questions. [facility] Consult Pager: [phone] Record Review: moderate. Patient discussed with attending Dr. Patton. Bouchra Thompson MD PGY-2, Internal Medicine-Psychiatry Cosigned by Jen Patton MD at 12/30/2021 2:39 PM EST Associated attestation - Jen Patton MD - 12/30/2021 2:39 PM EST Signature Only * H&P - Darren Hernandez MD - 12/20/2021 12:37 PM EDT Internal Medicine H&P Admission info: Attending Provider: Rafiq Perales MD Admitting Provider: Darren Hernandez MD Primary Care Provider: Elmo Escobar MD Date of Admission: 12/20/2021 Admitting Service: 12/20/21 Subjective ID: Lila Mcnally is a 36 y.o. female. CC: Chief Complaint Patient presents with Drug Overdose Independent Historian(s): Patient HPI: 36 y/o female with PMH of acute on chronic pancreatitis, GERD, bipolar disorder, depression, obesity, and anxiety who presents to the [facility] ED for a suspected suicide attempt. Patient has a long history of epigastric pain related to her pancreatitis issues and is currently taking oxycodone 5mg 1-3 times daily for pain that has significantly altered her life. Patient states she has been battling this for a long time and over the last 48hrs the pain has been worse and states I am tired of living with this . Patient's mother controls her home pain medications but not other meds, per mother they had been working on tapering down her oxycodone. This morning the patient's mom was going to take herto the ER for pancreatitis but on the way the patient told her mother she took 2 of her latuda and 2 venlafaxine. Her mother pulled over on the side of the road and made her try to throw up by gagging herself .. Patient then became lethargic and said she couldn't see. 911 was called and EMS reported. Patient told EMS it was a suicide attempt an that she took 5 latuda and 2 venlafaxine. Patient was partially unresponsive at that time. On arrival to ED patient was hemodynamically stable but very lethargic and originally talking with a gargled voice but protecting her airway. Mother at bedside thinking patient took the meds only forpain control but I awoke the patient and she was alert and oriented. Patient confirmed she did takeher medications as an attempt to end my life . Mother very distraught at bedside. Patient relates all these issues to her feeling so depressed related to her pancreas issue. She now is denying any further suicidal ideation at this time. Patient is endorsing continued epigastric pain that wraps from epigastrum to LUQ pain and to the back. Patient and mother state she has an upcoming outside GI appointment and may get an ERCP soon. Functional Baseline: Home oxygen: No Hearing impairment: No Mobility: Can perform ADLs without assistance Review of Systems Constitutional: Positive for activity change and fatigue. Negative for chills and fever. HENT: Negative. Eyes: Negative. Respiratory: Negative. Gastrointestinal: Positive for abdominal pain, diarrhea, nausea and vomiting. Endocrine: Negative. Genitourinary: Negative. Musculoskeletal: Negative. Skin: Negative. Allergic/Immunologic: Negative. Neurological: Positive for dizziness and headaches. Hematological: Negative. Psychiatric/Behavioral: Negative. Allergies: is allergic to droperidol, morphine and related, and tramadol. Medical Background: Past medical history: has a past medical history of Anxiety, Arthritis, Depression, Fibromyalgia, GERD (gastroesophageal reflux disease), Hypertension, Nicotine dependence, Obesity, and Pancreatitis. She has no past medical history of Adverse effect of anesthesia, Asthma, Awareness under anesthesia, Cancer ([facility]), CHF (congestive heart failure) ([facility]), COPD (chronic obstructive pulmonary disease) ([facility]), Coronary artery disease, Delayed emergence from general anesthesia, Diabetes mellitus ([facility]), Disease of thyroid gland, Hard to intubate, History of transfusion, Malignant hyperthermia, PONV (postoperative nausea and vomiting), Pseudocholinesterase deficiency, Spinal headache, or Stroke ([facility]). Past surgical history: has a past surgical history that includes Cholecystectomy; ERCP; Esophagogastroduodenoscopy; and Hand surgery. Family history: family history includes Hypertension in her mother; No Known Problems in her father. Social history: reports that she has been smoking cigarettes. She has a 7.50 pack-year smoking history. She has never used smokeless tobacco. She reports that she does not currently use alcohol. She reports that she does not currently use drugs. Frequency: 4.00 times per week. Occupation unemployed. Travel--none. Immunizations: Immunization History Administered Date(s) Administered Influenza, injectable, quadrivalent, preservative free 11/21/2019, 12/27/2020 Moderna COVID-19 Vaccine ([employer]) 12+ 06/11/2020, 07/05/2020 InforWello COVID-19 Vaccine (Purple Cap) 02/10/2021 Medications: Current Facility-Administered Medications Medication Dose Route Frequency Provider Last Rate Last Admin acetaminophen (Tylenol) tablet 1,000 mg 1,000 mg Oral q6h PRN Benjamin Edgar MD enoxaparin (Lovenox) syringe 40 mg 40 mg Subcutaneous Daily Benjamin Edgar MD ketoconazole (NIZOral) 2 % cream 1 application 1 application Topical BID Benjamin Edgar MD melatonin tablet 9 mg 9 mg Oral Nightly PRN Benjamin Edgar MD naloxone (Narcan) nasal spray 4 mg 4 mg Nasal PRN Benjamin Edgar MD pancrelipase (Creon) 45890 units capsule 2 capsule Oral TID with meals Benjamin Edgar MD pantoprazole (Protonix) EC tablet 40 mg 40 mg Oral BID Benjamin Edgar MD polyethylene glycol (Miralax) packet 17 g 17 g Oral Daily Benjamin Edgar MD senna (Senokot) tablet 17.2 mg 2 tablet Oral Nightly Benjamin Edgar MD sodium chloride 0.9 % flush 10 mL 10 mL Intravenous q8h PRN Benjamin Edgar MD And sodium chloride 0.9 % flush 10 mL 10 mL Intravenous PRN Benjamin Edgar MD sucralfate (Carafate) 1 GM/10ML suspension 1 g 1 g Oral With meals & nightly Benjamin Edgar MD Current Outpatient Medications Medication Sig Dispense Refill acetaminophen (Tylenol) 500 MG tablet Take 1,000 mg by mouth every 6 (six) hours if needed for mildpain. hydrOXYzine pamoate (Vistaril) 50 MG capsule Take 1 capsule (50 mg total) by mouth every 6 (six) hours if needed for anxiety for up to 10 days. 30 capsule 0 ketoconazole (NIZOral) 2 % cream Apply 1 application topically 2 (two) times a day. Latuda 40 MG tablet Take 40 mg by mouth 1 (one) time each day with breakfast. Melatonin 10 MG tablet Take 10 tablets by mouth at night if needed (sleep). naloxone (Narcan) 4 mg/0.1 mL nasal spray Administer 1 spray (4 mg total) into affected nostril(s) if needed for opioid reversal. Call 911. Give 4 mg (1 spray) into one nostril. Repeat every 2-3 minutes as needed, alternating nostrils, until medical assistance arrives. 1 each 11 oxyCODONE (Roxicodone) 15 MG immediate release tablet Take 15 mg by mouth every 6 (six) hours if needed for severe pain. pancrelipase, Sjo-Actc-Ugfg, (Creon) 70458-30927 units capsule Take 2 capsules by mouth 3 (three) times a day with meals. pantoprazole (Protonix) 40 MG EC tablet Take 1 tablet (40 mg total) by mouth 2 (two) times a day. Do not crush, chew, or split. 120 tablet 0 pregabalin (Lyrica) 300 MG capsule Take 300 mg by mouth 2 (two) times a day. sucralfate (Carafate) 1 GM/10ML suspension Take 10 mL (1 g total) by mouth 4 (four) times a day (with meals and nightly). 420 mL 0 venlafaxine XR (Effoxor-XR) 150 MG 24 hr capsule Take 150 mg by mouth 1 (one) time each day. Objective Vitals: Visit Vitals BP (!) 153/97 Pulse 90 Temp 36.8 ??C (98.3 ??F) (Oral) Resp 20 Wt 105 kg (231 lb 7.7 oz) SpO2 95% BMI 38.52 kg/m?? OB Status Having periods Smoking Status Every Day BSA 2.19 m?? No intake or output data in the 24 hours ending 12/20/21 1237 Labs in last 18 hours CBC WBC 8.10 Hb 11.3 Plt 288 Hct 34.9 ANC ?? INR ??, PTT ??, Anti-Xa ?? BMP Na 141; 139 Cl 104 BUN 7 Glu 150 (H) K 4.2 Co2 23 Cr 0.47 (L) Ca 8.0 (L) iCa 4.7 Mg ??, Phos ?? Lactate ?? LFT AST 29 AlkPhos 88 T Prot 5.9 (L) ALK 20 Bili <0.2 (L) Alb ?? D.Bili ?? Physical Exam Constitutional: Appearance: She is obese. Comments: Ill appearing, lying in ER bed HENT: Head: Normocephalic and atraumatic. Mouth/Throat: Mouth: [...] Abdomen is soft. Tenderness: There is no guarding. Comments: Epigastric and LUQ pain on palpation. Musculoskeletal: General: Normal range of motion. Cervical back: Normal range of motion and neck supple. Skin: General: Skin is warm and dry. Capillary Refill: Capillary refill takes less than 2 seconds. Neurological: General: No focal deficit present. Mental Status: She is alert and oriented to person, place, and time. Mental status is at baseline. Psychiatric: Comments: No longer endorsing SI but does state this was a suicide attempt. Alert and orietned but still a little drowsy and sleepy. Thought content now appears appropriate. Assessment/Plan Summary: Lila Mcnally is a 36 y.o. female with hx of acute on chronic pancreatitis, anxiety, depression, bipolar disorder, and obesity who presented on 12/20/2021 with a suicide attempt in the setting of taking 5 latuda and 22 venalfaxine ER. . #intentional overdose #SI - per EMS report, pt took at least 5 of each latuda and venlafaxine - also endorsed SI - no hx of SI, but hx of ARTIS and MDD PLAN - Telemetry monitoring - per poison control, monitor pt for 11-18hrs, will get EKG this afteroon - Patient at increased risk of seizure, PRN ativan if needed. - Psych Consult Placed - hold venlafaxine and latuda, follow psychs recs. #acute encephalopathy, resolving - 2/2 intentional overdose - lactate mildly elevated on arrival to 3.0 - UDS+: cannabis and oxycodone - per mother: pt only gets oxycodone at scheduled times PLAN - continue to monitor - likely will resolve as latuda and venlafaxine are metabolized - Will order an additional 1L of LR - minimize agents that can worsen encephalopathy including bzd, opioids, anti- histaminergic medications. Will plan to restart home medications as mental status improved. #chronic epigastric pain #pancreatic insufficiency - on bentyl and oxycodone as outpt - continue creon and bentyl - will continue oxycodone once pt is more alert #bipolar disorder #Depression/Anxiety - on latuda and venlafaxine as outpt - restart medications after psych consult and deemed appropriate by psych Chronic, Stable Medical Problems: # GERD - Continue Pantoprazole Changes to these conditions will be documented as appropriate throughout admission. Checklist: Fluids/Feeds: Regular diet, no fluid restriction. Additional 1L of LR Electrolytes: Monitor and replete as needed. Nausea: None Pain control: Tylenol PRN, will restart oxycodone as mental status improved TPE ppx: pLOV Lines/Tubes: PIV Clinical Status: Guarded Code Status: Full Code Barriers to Discharge: Psych evaluation and clearance Disposition, PT/OT: ESTHELA Fabian MD PGY-2, Internal Medicine Pager: [phone] Cosigned by Rafiq Perales MD at 12/20/2021 4:43 PM EDT Associated attestation - Rafiq Perales MD - 12/20/2021 4:43 PM EDT I saw and evaluated the patient. I discussed the case with the resident/fellow and agree with the findings and plan as documented. 36yo F with chronic pancreatitis and depressions presents with intentional overdose. 1. Intentional overdose of antipsychotic/antidepressant- She reports to me that she was not trying to end her life but was so miserable that she did not care if she . On exam, she is slightly somnolent having trouble keeping her eyes open and occasionalyl slurring her words. I personally reviewed her EKG which shows NSR, poor R wave progression and anterior TWI with QTc 468. We will monitor for further complications of overdose (primarily mental status and EKG). Psychiatry has been consulted to see if she would benefit from inpatient treatment and to suggest medication management given that she overdosed on her current medications. 2. Chronic abdominal pain- I think this is likely a combination of chronic pancreatitis and functional abdominal pain. I think some component of her pain is likely from pancreas (and or ulcers she has been previous diagnosed with). There is no evidence on lipase of an acute elevation (and see exam below). Separately, a large part of her pain is likely not GI. I think her depression and anxiety and having a large effect on her pain. On my exam, she is calm with a normal affect and then rapidly starts crying in pain. On exam, she is very tender to light palpation in epigastrium and LUQ but nontender when palpating with the stethoscope. She is very fixated on quick relief to her pain despite th e chronicity of it. I explained we would not be giving her any more opioids than what she takes chronically. I think the risk of escalating opioids greatly exceeds the benefit in her, from a risk of substance use disorder and a risk of adverse events. 3. Volume depletion causing lactic acidosis- We have fluid rescucitated her. Euvolemic on exam. I personally reviewed her prior 10 ED visits in the last 6 months. Each one for abdominal pain. Some with mildly elevated lipase, most with normal. Most with normal imaging. In all, she was treated symptomatically and given fluids and discharged from the ED. * Hospital Course - Darren Hernandez MD - 12/20/2021 12:27 PM EDT 36 y/o female with PMH of acute on chronic pancreatitis, GERD, bipolar disorder, depression, obesity, and anxiety who presents to the [facility] ED for a suspected suicide attempt after taking 7 latuda and 2 venlafaxine XR.. Patient has a long history of epigastric pain related to her pancreatitis issues and is currently taking oxycodone 5mg 1-3 times daily for pain that has significantly altered her life. Patient states she has been battling this for a long time and over the last 48hrs the pain has been worse and states I am tired of living with this . #intentional overdose #SI - per EMS report, pt took at least 5 of each latuda and venlafaxine - also endorsed SI on arrival, but now is denying any SI - Patient has been cleared by psych for discharge. - Cleared from an EKG standpoint, no abnormalities. Poison control contacted on arrival. - Patient stating she would like to taper off psych medication, discussed the importance of these medications and if she would like to stop them will need to be slow taper with PCP. PLAN - Resume home latuda and venalafaxine, can discuss taper with PCP if patient wishes to stop meds. - Mother will distribute all medications going forward. #acute encephalopathy, resolved - 2/2 intentional overdose (latuda and venlafaxine) - UDS+: cannabis and oxycodone on arrival. - Mental status is back to baseline on day of discharge. #chronic epigastric pain #pancreatic insufficiency - on bentyl and oxycodone as outpt - continue creon and bentyl - will continue oxycodone once pt is more alert - Has follow-up with outside GI this week #bipolar disorder - Continue latuda and venlafaxine - Patient declines outpatient psych follow-up * ED Provider Notes - Lisa Fuller DO - 12/20/2021 10:18 AM EDT HPI No chief complaint on file. Lila Mcnally is a 36 y.o. female w/ a hx of anxiety, depression, GERD, pancreatitis, obesity, CCY, and fibromyalgia who presents to the ED via [facility] who explain that the patient was being driven to [facility] to be evaluated for her abdominal pain when she became sick and told her mom she took 5 pills each of Latuda and Venlafaxine in an attempt to help her pain.She was up and trying to force herself to vomit when EMS arrived per the marketing production manager on arrival here.Per EMS pt told them it was a suicide attempt. On arrival here EMS states that the patient became unresponsive en route and that the IV that had been placed in her left hand got ripped out, with themstating that the patient did not respond to ammonia capsules and that no medications were administered en route. The patient was not given Narcan and did not report any other substance abuse but for her prescribed medications listed above. The patient arouses here and while she was hypertensive en route and slightly tachypneic her vitals were otherwise normal. HPI limited 2/2 pts altered mental status. Denies any fever, chills, diarrhea, SOB, CP, ESPINOZA, HI, or AVHs. No data recorded Patient History Past Medical [...] chest pain and palpitations. Gastrointestinal: Positive for vomiting. Negative for abdominal pain. Genitourinary: Negative for dysuria and hematuria. Musculoskeletal: Negative for arthralgias and back pain. Skin: Negative for color change and rash. Neurological: Negative for seizures and syncope. Psychiatric/Behavioral: Positive for self-injury and suicidal ideas. All other systems reviewed and are negative. Physical Exam ED Triage Vitals Temp Pulse Resp BP -- -- -- -- SpO2 Temp src Heart Rate Source Patient Position -- -- -- -- BP Location FiO2 (%) -- -- Physical Exam Vitals and nursing note reviewed. Constitutional: General: She is in acute distress. Appearance: She is well-developed. She is obese. She is ill-appearing. She is not toxic-appearing or diaphoretic. Comments: Patient minimally responsive but does hold her arm up and protect her face, also moves her head to ammonia capsules and opens eyes. HENT: Head: Normocephalic and atraumatic. Nose: Nose normal. No congestion or rhinorrhea. Mouth/Throat: Mouth: Mucous membranes are moist. Pharynx: No oropharyngeal exudate or posterior oropharyngeal [...] is no abdominal tenderness. There is no right CVA tenderness, left [...] takes less than 2 seconds. Findings: No erythema or rash. Neurological: General: No focal deficit present. Mental Status: Mental status is at baseline. She is unresponsive. Cranial Nerves: No cranial nerve deficit or facial asymmetry. Sensory: No sensory deficit. Motor: No weakness, tremor or seizure activity. Psychiatric: Thought Content: Plan of suicide: Told EMS that she took 5 pills each of Latuda and Venlafaxine in an attempt to kill herself.. ED Course & MDM ED Disposition: MDM Number of Diagnoses or Management Options Diagnosis management comments: Normal EKG on arrival. FSBS of 145 per EMS on scene. Pt protecting airway and has purposeful movement but is lethargic. Narcan given with no results. Diff dx includes medication effect from overdose vs. Less likely metabolic abnormality or infection. Labs unremarkable. Pt mental status continued to improve with observation. She did develop n/v which she was given zofran for. Poison control contacted and recommended at least 12 hours obs given thevenlafaxine is ER. Medicine consulted for admission. Pt placed on 72 hour hold given she told EMS it was a suicide attempt. Mom does not believe this was a suicide attempt, this will need to be readdressed once patient is more alert and able to give history. Labs Reviewed POCT GLUCOSE METER UNSOLICITED RESULTS - Abnormal POCT Glucose 161 (*) Comment Patient Service Technician Pst ID Device ID Specimen Type POC Capillary SARS COV2 COVID 19/INFLUENZA A, B COMPREHENSIVE METABOLIC PANEL, PLASMA FREE T4, PLASMA ETHYL ALCOHOL PLASMA DRUG SCREEN, RESEARCH PURPOSES - ED ONLY TEST QUALITATIVE PLASMA BLOOD GAS PANEL, VENOUS DRUG ABUSE SCREEN, URINE CBC W/O DIFFERENTIAL SALICYLATE, QUANTITATIVE, PLASMA ACETAMINOPHEN, QUANTATATIVE, PLASMA LIPASE, PLASMA No orders to display Medications lactated Ringer's infusion 1,000 mL (has no administration in time range) ED Prescriptions None This documentation was recorded by Chet Banks acting as a scribe in my presence, DO Fuller, at the time of the encounter and accurately reflects the service I personally performed and the decisions made by me. This note was dictated to me, Chet Banks, acting as a scribe for DO Fuller. Lisa Fuller DO 12/21/21 0737 * ED Triage Notes - Verenice Martins RN - 12/20/2021 10:18 AM EDT Patient told her mother she intentionally took more medications than prescribed. Told her mother she took 2 Effexor and 5 Latuda. documented in this encounter Plan of Treatment Not on file documented as of this encounter Procedures Procedure Name Priority Date/Time Associated Diagnosis Comments PAIN MANAGEMENT, QUANTITATIVE URINE DRUG TESTING Routine 12/21/2021 5:13 PM EDT PAIN MANAGEMENT, QUANTITATIVE URINE DRUG TESTING Routine 12/21/2021 5:13 PM EDT CBC W/O DIFFERENTIAL Routine 12/21/2021 3:06 AM EDT PHOSPHORUS, PLASMA Routine 12/21/2021 3: 06 AM EDT MAGNESIUM, PLASMA Routine 12/21/2021 3:0 6 AM EDT COMPREHENSIVE METABOLIC PANEL, PLASMA Routine 12/21/2021 3:06 AM EDT ECG ADULT STAT 12/20/2021 4:46 PM EDT LACTATE, VENOUS Routine 12/20/2021 4:44 PM EDT ACETAMINOPHEN, QUANTATATIVE, PLASMA STAT 12/20/2021 4:44 PM EDT OPIATES, LCMSMS, URINE STAT 12/20/2021 11:14 AM EDT DRUG ABUSE SCREEN, URINE STAT 12/20/2021 11:14 AM EDT THC URINE CONFIRM STAT 12/20/2021 11: 14 AM EDT SARS COV2 COVID 19/INFLUENZA A, B STAT 12/20/2021 10:53 AM EDT ETHYL ALCOHOL PLASMA STAT 12/20/2021 10:30 AM EDT ACETAMINOPHEN, QUANTATATIVE, PLASMA STAT 12/20/2021 10:30 AM EDT CBC W/O DIFFERENTIAL STAT 12/20/2021 10:30 AM EDT TEST QUALITATIVE PLASMA STAT 12/20/2021 10:30 AM EDT FREE T4, PLASMA STAT 12/20/2021 10:30 AM EDT LIPASE, PLASMA STAT Add-on 12/20/2021 10:30 AM EDT BLOOD GAS PANEL, VENOUS STAT 12/20/2021 10:30 AM EDT SALICYLATE, QUANTITATIVE, PLASMA STAT 12/20/2021 10:30 AM EDT COMPREHENSIVE METABOLIC PANEL, PLASMA STAT 12/20/2021 10:30 AM EDT ECG ADULT STAT 12/20/2021 10:27 AM EDT POCT GLUCOSE METER UNSOLICITED RESULTS Routine 12/20/2021 10:22 AM EDT documented in this encounter Results * (ABNORMAL) Pain Management, Quantitative Urine Drug Testing (12/21/2021 5:13 PM EDT) [facility] Alprazolam <20 <20 ng/mL 12/24 6:14 AM EDT [facility] Midazolam <20 <20 ng/mL 2021 6:14 AM EDT [facility] Triazolam <20 <20 ng/mL 2021 6:14 AM EDT [facility] Alprazolam <10 <10 ng/mL 12/24/2021 6:14 AM EDT [facility] Aminoclonazepam 581(H) <20 ng/mL 2 6:14 AM EDT [facility] Amphetamine <50 <50 ng/mL 12/24/2021 6:14 AM EDT [facility] Benzoylecgonine <50 <50 ng/mL 2 6:14 AM EDT [facility] Buprenorphine <10 <10 ng/mL 12/24/2021 6:14 AM EDT [facility] Buprenorphine Glucuronide <50 <50 ng/mL 12/24/2021 6:14 AM EDT [facility] Butalbital <50 <50 ng/mL 12/24/2021 6:14 AM EDT [facility] 9 Carboxy THC <10 <10 ng/mL 12/24/2021 6:14 AM EDT [facility] 9 Carboxy THC Glucuronide 58(H) <25 ng/mL 12/24/2021 6:14 AM EDT [facility] Clonazepam <10 <10 ng/mL 12/24/2021 6:14 AM EDT [facility] Codeine <50 <50 ng/mL 12/24/2021 6:14 AM EDT [facility] Codeine Glucuronide <50 <50 ng/mL 12/24 6:14 AM EDT [facility] Cyclobenzaprine <50 <50 ng/mL 6:14 AM EDT [facility] Desmethyl Tramadol <50 <50 ng/mL 2021 6:14 AM EDT [facility] Diazepam <10 <10 ng/mL 12/24/2021 6:14 AM EDT [facility] EDDP - Methadone Metabolite <50 <50 ng/mL 12/24/2021 6:14 AM EDT [facility] Fentanyl <1 <1 ng/mL 12/24/2021 6:14 AM EDT [facility] Hydrocodone <50 <50 ng/mL 12/24/2021 6:14 AM EDT [facility] Hydromorphone <50 <50 ng/mL 12/24/2021 6:14 AM EDT [facility] Hydromorphone Glucuronide <50 <50 ng/mL 12/24/2021 6:14 AM EDT [facility] Lorazepam <20 <20 ng/mL 12/24/2021 6:14 AM EDT [facility] Lorazepam Glucuronide 823(H) <50 ng/mL 12/24/2021 6:14 AM EDT [facility] MDA <50 <50 ng/mL 12/24/2021 6:14 AM EDT [facility] MDMA <50 <50 ng/mL 12/24/2021 6:14 AM EDT [facility] Meperidine <50 <50 ng/mL 12/24/2021 6:14 AM EDT [facility] Methadone <50 <50 ng/mL 12/24/2021 6:14 AM EDT [facility] Methamphetamine <50 <50 ng/mL 6:14 AM EDT [facility] Methylphenidate <50 <50 ng/mL 6:14 AM EDT [facility] 6 Monoacetyl morphine <10 <10 ng/mL 12/24/2021 6:14 AM EDT [facility] Morphine <50 <50 ng/mL 12/24/2021 6:14 AM EDT [facility] Morphine Glucuronide <50 <50 ng/mL 02/2021 6:14 AM EDT [facility] Naloxone <50 <50 ng/mL 12/24/2021 6:14 AM EDT [facility] Naloxone Glucuronide 79(H) <50 ng/mL 02/2021 6:14 AM EDT [facility] Norbuprenorphine <10 <10 ng/mL 12/25/19 6:14 AM EDT [facility] Norbuprenorphine Glucuronide <50 <50 ng/mL 12/24/2021 6:14 AM EDT [facility] Nordiazepam <20 <20 ng/mL 12/24/2021 6:14 AM EDT [facility] Norfentanyl <2 <2 ng/mL 12/24/2021 6:14 AM EDT [facility] Normeperidine <50 <50 ng/mL 12/24/2021 6:14 AM EDT [facility] PCP Quant, Ur <50 <50 ng/mL 12/24/2021 6:14 AM EDT [facility] Phenobarbital <50 <50 ng/mL 12/24/2021 6:14 AM EDT [facility] Oxazepam <20 <20 ng/mL 12/24/2021 6:14 AM EDT [facility] Oxazepam Glucuronide <50 <50 ng/mL 02/2021 6:14 AM EDT [facility] Oxycodone 301(H) <50 ng/mL 12/24/2021 6:14 AM EDT [facility] Oxymorphone <50 <50 ng/mL 12/24/2021 6:14 AM EDT [facility] Oxymorphone Glucuronide >1,000(H) <50 ng/mL 12/24/2021 6:14 AM EDT [facility] Secobarbital <50 <50 ng/mL 12/24/2021 6:14 AM EDT [facility] Tramadol <50 <50 ng/mL 12/24/2021 6:14 AM EDT [facility] Temazepam <20 <20 ng/mL 12/24/2021 6:14 AM EDT [facility] Temazepam Glucuronide <50 <50 ng/mL 12/24/2021 6:14 AM EDT [facility] Urine Urine specimen obtained by clean catch procedure / Unknown Non-blood Collection / Unknown 12/21/2021 5:13 PM EDT 12/21/2021 5:15 PM EDT Narrative [facility] - 12/24/2021 6:14 AM EDT Methodology:Quantitative Liquid Chromatography-Tandem Mass Spectrometry (LC- MS/MS) This report is intended for use in clinical monitoring or management of ? patients. It is NOT intended for use in employment-related drug testing. For pain management, the absence of expected drug(s) and/or drug metabolite(s) may indicate non-compliance, inappropriate timing of specimen collection relative to drug administration, poor drug absorption, or limitations of testing. Interpretive questions should be directed to the laboratory. This test was developed and its performance characteristics determined by [facility] in manner consistent with CLIA requirements. This test has not been cleared or approved by the FDA. Elena Nixon MD LAB URINE ORDERABLES Final R esult Performing Organization Address City/[facility]/ZIP Co de Phone Number [facility] [address] [place] [address] * Phosphorus (12/21/2021 3:06 AM EDT) Phosphorus, Plasma 3.3 2.5 - 4.5 mg/dL 12/21/2021 3:50 AM EDT [facility] Blood Venous blood specimen / Unknown Venipuncture / Unknown 12/21/2021 3:06 AM EDT 12/21/2021 3:25 AM EDT Rafiq Perales MD LAB BLOOD ORDERABLES Final Re sult [facility] [address] [place] [address] * Magnesium (12/21/2021 3:06 AM EDT) Magnesium, Plasma 2.1 1.9 - 2.4 mg/dL 12/21/2021 3:50 AM EDT [facility] Blood Venous blood specimen / Unknown Venipuncture / Unknown 12/21/2021 3:06 AM EDT 12/21/2021 3:25 AM EDT us Rafiq Perales MD LAB BLOOD ORDERABLES Final Re sult [facility] [address] [place] [address] * (ABNORMAL) Comprehensive metabolic panel (12/21/2021 3:06 AM EDT) Glucose, Plasma 89 74 - 99 mg/dL 12/21/2021 3:50 AM EDT [facility] BUN, Plasma 5(L) 7 - 21 mg/dL 12/21/2021 3:50 AM EDT [facility] Creatinine, Plasma 0.60 0.60 - 1.10 mg/dL 12/21/2021 3:50 AM EDT [facility] BUN/Creatinine Ratio 8 12/21/2021 3:50 AM EDT [facility] Sodium, Plasma 139 136 - 145 mmol/L 12/21/2021 3:50 AM EDT [facility] Potassium, Plasma 4.1 3.7 - 4.8 mmol/L 12/21/2021 3:50 AM EDT [facility] Comment:Reference range for Serum potassium is 0.2 to 0.5 mmol/L higher than Plasma range. Chloride, Plasma 102 97 - 107 mmol/L 12/21/2021 3:50 AM EDT [facility] CO2, Plasma 28 22 - 29 mmol/L 12/21/2021 3:50 AM EDT [facility] Anion Gap 9 6 - 16 mmol/L 12/21/2021 3:50 AM EDT [facility] Total Calcium, Plasma 9.2 8.9 - 10.2 mg/dL 12/21/2021 3:50 AM EDT [facility] Total Protein 6.4 6.3 - 7.9 g/dL 12/21/2021 3:50 AM EDT [facility] Albumin, Plasma 3.9 3.5 - 5.2 g/dL 12/21/2021 3:50 AM EDT [facility] AST, Plasma 16 11 - 32 U/L 12/21/2021 3:50 AM EDT [facility] ALT, Plasma 21 8 - 33 U/L 12/21/2021 3:50 AM EDT [facility] Alkaline Phosphatase, Plasma 93 35 - 104 U/L 12/21/2021 3:50 AM EDT [facility] Total Bilirubin, Plasma <0.2(L) 0.2 - 1.1 mg/dL 12/21/2021 3:50 AM EDT [facility] eGFRcr 120.2 mL/min/1.7 3m*2 12/21/2021 3:50 AM EDT [facility] Comment: Reported eGFRcr in mL/min/1.73m2 is based the CKD-EPI 2021 equation that does not use a race coefficient. Effective 09/18/21 our laboratory changed the eGFR calculation to the CKD-EPI 2021 equation from the previously reported eGFR, based on the MDRD equation. ??For comparisons between the two equations, please see laboratory website: ??[email or web address] Blood Venous blood specimen / Unknown Venipuncture / Unknown 12/21/2021 3:06 AM EDT 12/21/2021 3:25 AM EDT Rafiq Perales MD LAB BLOOD ORDERABLES Final Re sult [facility] [address] [place] [id number] * (ABNORMAL) CBC (12/21/2021 3:06 AM EDT) WBC Count 5.45 3.70 - 10.30 10*3/uL LAB HEMATOLOGY METHOD 12/21/2021 3:27 AM EDT [facility] RBC Count 3.70(L) 3.90 - 5.20 10*6/uL LAB HEMATOLOGY METHOD 12/21/2021 3:27 AM EDT [facility] HGB 10.3(L) 11.2 - 15.7 g/dL LAB HEMATOLOGY METHOD 12/21/2021 3:27 AM EDT [facility] HCT 31.6(L) 34.0 - 45.0 % LAB HEMATOLOGY METHOD 12/21/2021 3:27 AM EDT [facility] Platelet Count 204 155 - 369 10*3/uL LAB HEMATOLOGY METHOD 12/21/2021 3:27 AM EDT [facility] MCV 85 79 - 98 fL LAB HEMATOLOGY METHOD 12/21/2021 3:27 AM EDT [facility] MCH 27.8 26.0 - 32.0 pg LAB HEMATOLOGY METHOD 12/21/2021 3:27 AM EDT [facility] MCHC 32.6 30.7 - 35.5 g/dL LAB HEMATOLOGY METHOD 12/21/2021 3:27 AM EDT [facility] RDW 15.9(H) 11.5 - 14.5 % LAB HEMATOLOGY METHOD 12/21/2021 3:27 AM EDT [facility] MPV 9.4 8.8 - 12.5 fL LAB HEMATOLOGY METHOD 12/21/2021 3:27 AM EDT [facility] nRBC 0.0 <=0.0 per 100 WBCs LAB HEMATOLOGY METHOD 12/21/2021 3:27 AM EDT [facility] Blood Venous blood specimen / Unknown Venipuncture / Unknown 12/21/2021 3:06 AM EDT 12/21/2021 3:25 AM EDT Rafiq Perales MD LAB BLOOD ORDERABLES Final Re sult [facility] [address] [place] [address] * EKG now - STAT (adult) (12/20/2021 4:46 PM EDT) EKG DIAGNOSIS CLASS Normal MUSE ECG Ventricular Rate 81 BPM MUSE ECG Atrial Rate 81 BPM MUSE ECG CA Interval 150 ms MUSE ECG QRSD Interval 88 ms MUSE ECG QT Interval 378 ms MUSE ECG QTC Interval 439 ms MUSE ECG P [place] 21 degrees MUSE ECG R [place] 26 degrees MUSE ECG T Wave [place] 23 degrees MUSE ECG Diagnosis Normal sinus rhythm MUSE ECG Diagnosis Normal ECG MUSE ECG Diagnosis Confirmed by Jennie Morales ([id number]) on 12/21/2021 3:29:16 PM MUSE ECG 12/20/2021 4:46 PM EDT 12/21/2021 3:29 PM EDT us Lisa Fuller DO ECG ORDERABLES Final Result MUSE ECG * Lactate, venous (12/20/2021 4:44 PM EDT) Pathologist [facility] Lactate, Venous, Whole Blood 1.9 0.5 - 2.2 mmol/L LAB HEMATOLOGY METHOD 12/20/2021 4:52 PM EDT [facility] Blood Venous blood specimen / Unknown Venipuncture / Unknown 12/20/2021 4:44 PM EDT 12/20/2021 4:50 PM EDT Rafiq Perales MD LAB BLOOD ORDERABLES Final Re sult Performing Organization Address City/[facility]/ZIP Co de Phone Number [facility] [address] [place] [address] * (ABNORMAL) Acetaminophen, Quantitative, Plasma (12/20/2021 4:44 PM EDT) Pathologist [facility] Acetaminophen <5.0(L) 10.0 - 30.0 ??g/mL 12/20/2021 5:24 PM EDT [facility] Blood Venous blood specimen / Unknown Venipuncture / Unknown 12/20/2021 4:44 PM EDT 12/20/2021 4:50 PM EDT Narrative [facility] - 12/20/2021 5:24 PM EDT Therapeutic: 10 to 30 ug/mL Supratherapeutic: >35 ug/mL Lisa Fuller DO LAB BLOOD ORDERABLES Final Re sult Performing Organization Address City/[facility] Co de Phone Number [facility] [address] [place] [address] * (ABNORMAL) Opiates Confirm Urine (12/20/2021 11:14 AM EDT) Pathologist [facility] Codeine <50 <50 ng/mL 12/21/2021 10:26 PM EDT [facility] Codeine Glucuronide <50 <50 ng/mL 12/21/2021 10:26 PM EDT [facility] Desmethyl Tramadol <50 <50 ng/mL 12/21/2021 10:26 PM EDT [facility] EDDP - Methadone Metabolite <50 <50 ng/mL 12/21/2021 10:26 PM EDT [facility] Hydrocodone <50 <50 ng/mL 12/21/2021 10:26 PM EDT [facility] Hydromorphone <50 <50 ng/mL 12/21/2021 10:26 PM EDT [facility] Hydromorphone Glucuronide <50 <50 ng/mL 12/21/2021 10:26 PM EDT [facility] Comment:Metabolite of Hydrom orphone Meperidine <50 <50 ng/mL 12/21/2021 10:26 PM EDT [facility] Methadone <50 <50 ng/mL 12/21/2021 10:26 PM EDT [facility] 6 Monoacetyl morphine <10 <10 ng/mL 12/21/2021 10:26 PM EDT [facility] Morphine <50 <50 ng/mL 12/21/2021 10:26 PM EDT [facility] Morphine Glucuronide <50 <50 ng/mL 12/21/2021 10:26 PM EDT [facility] Comment:Metabolite of Morphi ne Naloxone <50 <50 ng/mL 12/21/2021 10:26 PM EDT [facility] Naloxone Glucuronide >1,000(H) <50 ng/mL 12/21/2021 10:26 PM EDT [facility] Comment:Metabolite of Naloxo ne Normeperidine <50 <50 ng/mL 12/21/2021 10:26 PM EDT [facility] Oxycodone 60(H) <50 ng/mL 12/21/2021 10:26 PM EDT [facility] Oxymorphone <50 <50 ng/mL 12/21/2021 10:26 PM EDT [facility] Oxymorphone Glucuronide 692(H) <50 ng/mL 12/21/2021 10:26 PM EDT [facility] Comment:Metabolite of Oxymor phone Tramadol <50 <50 ng/mL 12/21/2021 10:26 PM EDT [facility] Urine Urine specimen obtained by clean catch procedure / Unknown Non-blood Collection / Unknown 12/20/2021 11:14 AM EDT 12/20/2021 11:20 AM EDT Narrative [facility] - 12/21/2021 10:26 PM EDT Drug analysis is confirmed by LC-MS/MS (LC Tandem Mass Spectrometry) on Urine specimens. ?? This test was developed and its performance characteristics determined by [facility]. It has not been cleared or approved by the FDA. The laboratory is regulated under CLIA as qualified to perform high-complexity testing. This test is used for clinical purposes. Testing is performed at the [facility]. [employer] LAB URINE ORDERABLES Final Re sult Performing Organization Address [facility] de Phone Number [facility] [address] [place] [address] * THC Urine Confirm LCMSMS (12/20/2021 11:14 AM EDT) 9 Carboxy THC <10 <10 ng/mL 12/21/2021 10:26 PM EDT [facility] 9 Carboxy THC Glucuronide <25 <25 ng/mL 12/21/2021 10:26 PM EDT [facility] Urine Urine specimen obtained by clean catch procedure / Unknown Non-blood Collection / Unknown 12/20/2021 11:14 AM EDT 12/20/2021 11:20 AM EDT Narrative [facility] - 12/21/2021 10:26 PM EDT Drug analysis is confirmed by LC-MS/MS (LC Tandem Mass Spectrometry) on Urine specimens. ?? This test was developed and its performance characteristics determined by [facility]. It has not been cleared or approved by the FDA. The laboratory is regulated under CLIA as qualified to perform high-complexity testing. This test is used for clinical purposes. Testing is performed at the [facility]. [employer] LAB URINE ORDERABLES Final Re sult Performing Organization Address City/[facility] Co de Phone Number [facility] [address] [place] [address] * Drug abuse screen (12/20/2021 11:14 AM EDT) Amphetamine Screen Urine Negative Cutoff: 500 ng/mL 12/20/2021 12:03 PM EDT [facility] Benzodiazepines Screen Urine Negative Cutoff: 200 ng/mL 12/20/2021 12:03 PM EDT [facility] Cannabinoid Screen Urine Presumptive positive. Confirmation by LC-MS/MS to follow. Cutoff: 50 ng/mL 12/20/2021 12:03 PM EDT [facility] Cocaine Screen Urine Negative Cutoff: 300 ng/mL 12/20/2021 12:03 PM EDT [facility] Barbiturate Screen Urine Negative Cutoff: 200 ng/mL 12/20/2021 12:03 PM EDT [facility] Opiate Screen Urine Negative Cutoff: 300 ng/mL 12/20/2021 12:03 PM EDT [facility] Methadone Screen Urine Negative Cutoff: 300 ng/mL 12/20/2021 12:03 PM EDT [facility] Buprenorphine Screen Urine Negative Cutoff: 10 ng/mL 12/20/2021 12:03 PM EDT [facility] Fentanyl Screen Urine Negative Cutoff: 1 ng/mL 12/20/2021 12:03 PM EDT [facility] Oxycodone Screen Urine Presumptive positive. Confirmation by LC-MS/MS to follow. Cutoff: 100 ng/mL 12/20/2021 12:03 PM EDT [facility] Urine Urine specimen obtained by clean catch procedure / Unknown Non-blood Collection / Unknown 12/20/2021 11:14 AM EDT 12/20/2021 11:20 AM EDT Lisa Fuller DO LAB URINE ORDERABLES Final Re sult [facility] [address] [place], [place] [id number] * SARS-CoV-2 COVID-19/Influenza A,B (12/20/2021 10:53 AM EDT) Pathologist [facility] SARS CoV-2/COVID-1 9 RNA PCR Result Not Detected Not Detected 12/20/2021 11:42 AM EDT [facility] Influenza A Virus PCR Result Not Detected Not Detected 12/20/2021 11:42 AM EDT [facility] Influenza B Virus PCR Result Not Detected Not Detected 12/20/2021 11:42 AM EDT [facility] Swab Nasopharyngeal structure / Unknown Non-blood Collection / Unknown 12/20/2021 10:53 AM EDT 12/20/2021 10:55 AM EDT Narrative [facility] - 12/20/2021 11:42 AM EDT This test was performed using [...] clinical signs and symptoms consistent with COVID-19. Lisa Fuller DO LAB MICROBIOLOGY - GENERAL OR DERABLES Final Result Performing Organization Address City/Va Hospital/ZIP Co de Phone Number [facility]ALTH[facility] [address] [place] [address] * Lipase (12/20/2021 10:30 AM EDT) Lipase, Plasma 40 19 - 63 U/L 12/20/2021 12:49 PM EDT [facility] Blood Venous blood specimen / Unknown Venipuncture / Unknown 12/20/2021 10:30 AM EDT 12/20/2021 10:35 AM EDT [employer] DO LAB BLOOD ORDERABLES Final Re sult Performing Organization Address City/[facility] Hospital/ZIP Co de Phone Number [facility] [address] [place] [address] * Acetaminophen, Quantitative, Plasma (12/20/2021 10:30 AM EDT) Acetaminophen 20.7 10.0 - 30.0 ??g/mL 12/20/2021 11:16 AM EDT [facility] Blood Venous blood specimen / Unknown Venipuncture / Unknown 12/20/2021 10:30 AM EDT 12/20/2021 10:35 AM EDT Narrative [facility] - 12/20/2021 11:16 AM EDT Therapeutic: 10 to 30 ug/mL Supratherapeutic: >35 ug/mL Lisa Rhina ValderramaAlina DO LAB BLOOD ORDERABLES Final Re sult Performing Organization Address [facility] de Phone Number [facility] [address] [place] [address] * Salicylate level (12/20/2021 10:30 AM EDT) Salicylate, Quantitative, Plasma <1.0 <25 mg/dL mg/dL 12/20/2021 11:16 AM EDT [facility] Blood Venous blood specimen / Unknown Venipuncture / Unknown 12/20/2021 10:30 AM EDT 12/20/2021 10:35 AM EDT Narrative [facility] - 12/20/2021 11:16 AM EDT Therapeutic Range: ? <25 mg/dL Supratherapeutic Level: ??>30 mg/dL Lisa Fuller DO LAB BLOOD ORDERABLES Final Re sult Performing Organization Address [facility] de Phone Number [facility] [address] [place] [address] * (ABNORMAL) CBC (12/20/2021 10:30 AM EDT) WBC Count 8.10 3.70 - 10.30 10*3/uL LAB HEMATOLOGY METHOD 12/20/2021 10:38 AM EDT [facility] RBC Count 4.06 3.90 - 5.20 10*6/uL LAB HEMATOLOGY METHOD 12/20/2021 10:38 AM EDT [facility] HGB 11.3 11.2 - 15.7 g/dL LAB HEMATOLOGY METHOD 12/20/2021 10:38 AM EDT [facility] HCT 34.9 34.0 - 45.0 % LAB HEMATOLOGY METHOD 12/20/2021 10:38 AM EDT [facility] Platelet Count 288 155 - 369 10*3/uL LAB HEMATOLOGY METHOD 12/20/2021 10:38 AM EDT [facility] MCV 86 79 - 98 fL LAB HEMATOLOGY METHOD 12/20/2021 10:38 AM EDT [facility] MCH 27.8 26.0 - 32.0 pg LAB HEMATOLOGY METHOD 12/20/2021 10:38 AM EDT [facility] MCHC 32.4 30.7 - 35.5 g/dL LAB HEMATOLOGY METHOD 12/20/2021 10:38 AM EDT [facility] RDW 15.9(H) 11.5 - 14.5 % LAB HEMATOLOGY METHOD 12/20/2021 10:38 AM EDT [facility] MPV 8.8 8.8 - 12.5 fL LAB HEMATOLOGY METHOD 12/20/2021 10:38 AM EDT [facility] nRBC 0.0 <=0.0 per 100 WBCs LAB HEMATOLOGY METHOD 12/20/2021 10:38 AM EDT [facility] Blood Venous blood specimen / Unknown Venipuncture / Unknown 12/20/2021 10:30 AM EDT 12/20/2021 10:35 AM EDT Lisa Fuller DO LAB BLOOD ORDERABLES Final Re sult [facility] [address] [place] [address] * (ABNORMAL) Blood gas panel, venous (12/20/2021 10:30 AM EDT) [facility] Signature pH, Venous 7.40 7.32 - 7.43 LAB HEMATOLOGY METHOD 12/20/2021 10:38 AM EDT [facility] pCO2, Venous 45 37 - 52 mmHg LAB HEMATOLOGY METHOD 12/20/2021 10:38 AM EDT [facility] pO2, Venous 56(H) 25 - 40 mmHg LAB HEMATOLOGY METHOD 12/20/2021 10:38 AM EDT [facility] SO2, Measured, Venous 90.7(H) 65 - 80 % LAB HEMATOLOGY METHOD 12/20/2021 10:38 AM EDT [facility] Base Excess, Venous 2.4 -2.0 - 3.0 mmol/L LAB HEMATOLOGY METHOD 12/20/2021 10:38 AM EDT [facility] Bicarbonate, Calculated, Venous 28(H) 22 - 26 mmol/L LAB HEMATOLOGY METHOD 12/20/2021 10:38 AM EDT [facility] Hematocrit, Whole Blood 33.8(L) 34.0 - 45.0 % LAB HEMATOLOGY METHOD 12/20/2021 10:38 AM EDT [facility] Sodium, Whole Blood 141 136 - 145 mmol/L LAB HEMATOLOGY METHOD 12/20/2021 10:38 AM EDT [facility] Potassium, Whole Blood 3.4(L) 3.6 - 4.9 mmol/L LAB HEMATOLOGY METHOD 12/20/2021 10:38 AM EDT [facility] Chloride, Whole Blood 103 97 - 107 mmol/L LAB HEMATOLOGY METHOD 12/20/2021 10:38 AM EDT [facility] Glucose, Whole Blood 161(H) 74 - 99 mg/dL LAB HEMATOLOGY METHOD 12/20/2021 10:38 AM EDT [facility] Lactate, Venous, Whole Blood 3.0(H) 0.5 - 2.2 mmol/L LAB HEMATOLOGY METHOD 12/20/2021 10:38 AM EDT [facility] Ionized Calcium, Whole Blood 4.7 4.6 - 5.1 mg/dL LAB HEMATOLOGY METHOD 12/20/2021 10:38 AM EDT [facility] Blood Venous blood specimen / Unknown Venipuncture / Unknown 12/20/2021 10:30 AM EDT 12/20/2021 10:35 AM EDT Lisa Fuller DO LAB BLOOD ORDERABLES Final Re sult [facility] [address] [place] [id number] * hCG qualitative (12/20/2021 10:30 AM EDT) [facility] Test Negative Negative 12/20/2021 11:16 AM EDT [facility] Blood Venous blood specimen / Unknown Venipuncture / Unknown 12/20/2021 10:30 AM EDT 12/20/2021 10:35 AM EDT Narrative [facility] - 12/20/2021 11:16 AM EDT Reference Range: Males and non- females: Negative. [employer] DO LAB BLOOD ORDERABLES Final Re sult Performing Organization Address City/Va Hospital/ZIP Co de Phone Number [facility] [address] [place] [address] * Ethyl Alcohol Plasma (12/20/2021 10:30 AM EDT) Ethanol Plasma <10 <10 mg/dL 12/20/2021 11:16 AM EDT [facility] Blood Venous blood specimen / Unknown Venipuncture / Unknown 12/20/2021 10:30 AM EDT 12/20/2021 10:35 AM EDT Narrative [facility] - 12/20/2021 11:16 AM EDT Enzymatic Assay: Performed on [employer] DO LAB BLOOD ORDERABLES Final Re sult Performing Organization Address [facility] Co de Phone Number [facility] [address] [place] [address] * Free T4 (12/20/2021 10:30 AM EDT) Free T4, Plasma 0.9 0.8 - 1.7 ng/dL 12/20/2021 11:16 AM EDT [facility] Blood Venous blood specimen / Unknown Venipuncture / Unknown 12/20/2021 10:30 AM EDT 12/20/2021 10:35 AM EDT Narrative [facility] - 12/20/2021 11:16 AM EDT Free T4 Trimester Specific Ranges 1st Trimester ??0.9??- 1.50 ng/dL 2nd Trimester ??0.7 - 1.40 ng/dL 3rd Trimester ??0.7??- 1.24 ng/dL [employer] DO LAB BLOOD ORDERABLES Final Re sult Performing Organization Address City/[facility] Hospital/[facility] Co de Phone Number [facility] [address] [place] [address] * (ABNORMAL) CMP (12/20/2021 10:30 AM EDT) Glucose, Plasma 150(H) 74 - 99 mg/dL 12/20/2021 11:16 AM EDT [facility] BUN, Plasma 7 7 - 21 mg/dL 12/20/2021 11:16 AM EDT [facility] Creatinine, Plasma 0.47(L) 0.60 - 1.10 mg/dL 12/20/2021 11:[facility] BUN/Creatinine Ratio 15 12/20/2021 11:16 AM EDT [facility] Sodium, Plasma 139 136 - 145 mmol/L 12/20/2021 11:16 AM EDT [facility] Potassium, Plasma 4.2 3.7 - 4.8 mmol/L 12/20/2021 11:16 AM [facility] Comment: Hemolyzed, result may be falsely increased. Reference range for Serum potassium is 0.2 to 0.5 mmol/L higher than Plasma range. Chloride, Plasma 104 97 - 107 mmol/L 12/20/2021 11:16 AM [facility] CO2, Plasma 23 22 - 29 mmol/L 12/20/2021 11:16 AM [facility] Anion Gap 12 6 - 16 mmol/L 12/20/2021 11:16 AM [facility] Total Calcium, Plasma 8.0(L) 8.9 - 10.2 mg/dL 12/20/2021 11:16 AM [facility] Total Protein 5.9(L) 6.3 - 7.9 g/dL 12/20/2021 11:16 AM [facility] Albumin, Plasma 3.5 3.5 - 5.2 g/dL 12/20/2021 11:16 AM [facility] AST, Plasma 29 11 - 32 U/L 12/20/2021 11:16 AM [facility] Comment:Hemolyzed, result ma y be falsely increased. ALT, Plasma 20 8 - 33 U/L 12/20/2021 11:16 AM [facility] Comment:Hemolyzed, result ma y be falsely increased or decreased. Alkaline Phosphatase, Plasma 88 35 - 104 U/L 12/20/2021 11:16 AM [facility] Total Bilirubin, Plasma <0.2(L) 0.2 - 1.1 mg/dL 12/20/2021 11:16 AM EDT [facility] eGFRcr 127.5 mL/min/1.7 3m*2 12/20/2021 11:16 AM EDT [facility] Comment: Reported eGFRcr in mL/min/1.73m2 is based the CKD-EPI 2020 equation that does not use a race coefficient. Effective 09/18/21 our laboratory changed the eGFR calculation to the CKD-EPI 2020 equation from the previously reported eGFR, based on the MDRD equation. ??For comparisons between the two equations, please see laboratory website: ??[email or web address] Blood Venous blood specimen / Unknown Venipuncture / Unknown 12/20/2021 10:30 AM EDT 12/20/2021 10:35 AM EDT us [employer] DO LAB BLOOD ORDERABLES Final Re sult Performing Organization Address City/[facility] Hospital/ZIP Co de Phone Number [facility] [address] [place] [address] * EKG now - STAT (adult) (12/20/2021 10:27 AM EDT) EKG DIAGNOSIS CLASS Abnormal MUSE ECG Ventricular Rate 91 BPM MUSE ECG Atrial Rate 91 BPM MUSE ECG CA Interval 144 ms MUSE ECG QRSD Interval 90 ms MUSE ECG QT Interval 386 ms MUSE ECG QTC Interval 474 ms MUSE ECG P [place] 35 degrees MUSE ECG R [place] 24 degrees MUSE ECG T Wave [place] 32 degrees MUSE ECG Diagnosis Normal sinus rhythm MUSE ECG Diagnosis Cannot rule out MUSE ECG Diagnosis Anterior infarct MUSE ECG Diagnosis , age undetermined MUSE ECG Diagnosis Abnormal ECG MUSE ECG Diagnosis Confirmed by Alo Marsh ([id number]) on 12/20/2021 8:54:03 PM MUSE ECG 12/20/2021 10:2 7 AM EDT 12/20/2021 8:54 PM EDT us avandeo L [employer] DO ECG ORDERABLES Final Result MUSE ECG * (ABNORMAL) POCT glucose meter (12/20/2021 10:22 AM EDT) POCT Glucose 161(H) 74 - 99 mg/dL 12/20/2021 10:25 AM EDT [facility] Comment:Accuracy of [...] to the main labortory for testing. Comment 12/20/2021 10:25 AM EDT [facility] Patient Service Technician Pst ID Clif Venegas 12/21/19 10:25 AM EDT [facility] Device ID [id number] 12/20/2021 10:25 AM EDT [facility] Specimen Type POC Capillary 12/20/2021 10:25 AM EDT [facility] Blood Capillary blood specimen / Unknown 12/20/2021 10:22 AM EDT 12/20/2021 10:25 AM EDT us Generic Provider Poct LAB POINT OF CARE TEST DOCKED DEVICE UNSOLICITED RESULTS Final Result [facility] [address] [place] [address] documented in this encounter Visit Diagnoses Diagnosis Intentional overdose (CMS/HCC)- Primary Medication overdose, intentional self-harm, initial encounter (CMS/HCC) Vomiting, unspecified vomiting type, unspecified whether nausea present Altered mental status, unspecified altered mental status type Suicidal ideation Other chronic pancreatitis (CMS/HCC) Bipolar depression (CMS/HCC) Bipolar I disorder, most recent episode (or current) depressed, unspecified Chronic pain Other chronic pain documented in this encounter Admitting Diagnoses Diagnosis Suicidal ideation documented in this encounter Administered Medications Inactive Administered Medications - up to 3 most recent administrations Medication Order MAR Action Action Date Dose Rate Site acetaminophen (Tylenol) tablet 1,000 mg 1,000 mg, Oral, Every 6 hours PRN, Starting on Thu12/20/21 at 1217, Until 12/22/21 at 1538, Routine, mild pain Given 12/22/2021 6:02 AM EDT 1,000 mg Given 12/21/2021 11:47 PM EDT 1,000 mg Given 12/21/2021 4:58 PM EDT 1,000 mg dicyclomine (Bentyl) capsule 10 mg 10 mg, Oral, 4 times daily, First dose on Thu12/21/21 at 1400, Until Discontinued, Routine Given 12/22/2021 8:0 0 AM EDT 10 mg Given 12/21/2021 9:14 PM EDT 10 mg Given 12/21/2021 5:21 PM EDT 10 mg enoxaparin (Lovenox) syringe 40 mg 40 mg, Subcutaneous, Daily, First dose on Thu12/20/21 at 1215, Until Discontinued, Routine Given 12/22/2021 8:00 AM EDT 40 mg Left Lower Abdomen Given 12/21/2021 9:47 AM EDT 40 mg Le ft Upper Abdomen ketoconazole (NIZOral) 2 % cream 1 application Topical, 2 times daily, First dose on Thu12/20/21 at 1220, Until Discontinued, Routine Given 12/22/2021 8:00 AM EDT 1 application. Given 12/21/2021 12:30 PM EDT 1 application. lactated Ringer's infusion 1,000 mL 1,000 mL, Intravenous, Once, 1 dose, On Thu12/20/21 at 1030, STAT New Bag 12/20/2021 12:24 PM EDT 1,000 mL 1000 mL/hr LORazepam (Ativan) tablet 1 mg 1 mg, Oral, Daily PRN, Starting on Thu12/20/21 at 1528, Until 12/22/21 at 1538, Routine, anxiety, seizures Given 12/22/2021 1:52 AM EDT 1 mg Given 12/21/2021 9:56 AM EDT 1 mg Given 12/20/2021 4:23 PM EDT 1 mg lurasidone (Latuda) tablet 40 mg 40 mg, Oral, Daily with breakfast, First dose on Thu12/21/21 at 0800, Until Discontinued, Routine Given 12/22/2021 7:57 AM EDT 40 mg Given 12/21/2021 9:46 AM EDT 40 mg melatonin tablet 9 mg 9 mg, Oral, Nightly PRN, Starting on Thu12/20/21 at 1217, Until 12/22/21 at 1538, Routine, sleep Given 12/21/2021 8:41 PM EDT 9 mg Given 12/20/2021 8:22 PM EDT 9 mg naloxone (Narcan) injection 0.4 mg 0.4 mg, Intravenous, As needed, Starting on Thu12/20/21 at 1256, Until Thu12/22/21 at 1538, Routine, opioid reversal naloxone (Narcan) injection 2 mg 2 mg, Intravenous, Once, 1 dose, On Thu12/20/21 at 1225, Routine Given by Other 12/20/2021 9:45 AM EDT 2 mg ondansetron (Zofran) injection 4 mg 4 mg, Intravenous, Once, 1 dose, On Thu12/20/21 at 1045, STAT Given 12/20/2021 11:41 AM EDT 4 mg oxyCODONE (Roxicodone) immediate release tablet 5 mg 5 mg, Oral, Every 6 hours PRN, Starting on Thu12/20/21 at 1336, Until Thu12/22/21 at 1538, Routine, severe pain Given 12/22/2021 12:00 PM EDT 5 mg Given 12/22/2021 6:02 AM EDT 5 mg Given 12/21/2021 11:48 PM EDT 5 mg pancrelipase (Creon) 44097 units capsule 2 capsule, Oral, 3 times daily with meals, First dose on Thu12/20/21 at 1230, Until Discontinued, Routine Given 12/22/2021 12:00 PM EDT 2 capsule s Given 12/22/2021 7:56 AM EDT 2 capsules Given 12/21/2021 4:57 PM EDT 2 capsules pantoprazole (Protonix) EC tablet 40 mg 40 mg, Oral, 2 times daily, First dose on Thu12/20/21 at 1220, Until Discontinued, Routine Given 12/22/2021 8:0 0 AM EDT 40 mg Given 12/21/2021 8:41 PM EDT 40 mg Given 12/21/2021 9:45 AM EDT 40 mg polyethylene glycol (Miralax) packet 17 g 17 g, Oral, Daily, First dose on Thu12/20/21 at 1215, Until Discontinued, Routine pregabalin (Lyrica) capsule 300 mg 300 mg, Oral, 2 times daily, First dose on Thu12/21/21 at 0945, Until Discontinued, Routine Given 12/22/2021 8:00 AM EDT 300 mg Given 12/21/2021 8:41 PM EDT 300 mg Given 12/21/2021 9:55 AM EDT 300 mg senna (Senokot) tablet 17.2 mg 17.2 mg (2 tablet), Oral, Nightly, First dose on Thu12/20/21 at 2100, Until Discontinued, Routine sodium chloride 0.9 % flush 10 mL 10 mL, Intravenous, Every 8 hours PRN, Starting on Thu12/20/21 at 1211, Until 12/22/21 at 1538, Routine, line care sodium chloride 0.9 % flush 10 mL 10 mL, Intravenous, As needed, Starting on Thu12/20/21 at 1211, Until Thu12/22/21 at 1538, Routine, line care sucralfate (Carafate) 1 GM/10ML suspension 1 g 1 g, Oral, 4 times daily with meals and nightly, First dose on Thu12/20/21 at 1230, Until Discontinued, Routine Given 12/22/2021 12:00 PM EDT 1 g Given 12/22/2021 7:56 AM EDT 1 g Given 12/21/2021 8:41 PM EDT 1 g venlafaxine XR (Effexor-XR) 24 hr capsule 150 mg 150 mg, Oral, Daily with breakfast, First dose on 12/21/21 at 0800, Until Discontinued, Routine Given 12/22/2021 7:57 AM EDT 150 mg Given 12/21/2021 9:46 AM EDT 150 mg documented in this encounter Active and Recently Administered Medications Times are shown in EDT. Scheduled Medication Order 12/20/2021 12/21/2021 12/22/2021 dicyclomine (Bentyl) capsule 10 mg 10 mg, Oral, 4 times daily, First dose on 12/21/21 at 1400, Until Discontinued, Routine 1500 (Given - Provider: Anna Spencer RN)1721 (Given - Provider: Anna Spencer RN)2114 (Given - Provider: Kenyatta Lucas LPN) 0800 (Given - Provider: Joon Hunter RN)1400 (Canceled Entry - Provider: Automatic Discharge Provider - Comment: Automatically canceled at discontinue of medication order) enoxaparin (Lovenox) syringe 40 mg 40 mg, Subcutaneous, Daily, First dose on Thu12/20/21 at 1215, Until Discontinued, Routine 1215 (Canceled Entry - Provider: Automatic Discharge Provider - Comment: Automatically canceled at discontinue of medication order) 0947 (Given - Provider: Anna Spencer RN) 0800 (Given - Provider: Joon Hunter RN) ketoconazole (NIZOral) 2 % cream 1 application Topical, 2 times daily, First dose on Thu12/20/21 at 1220, Until Discontinued, Routine 2116 (Not Given - Provider: Kenyatta Lucas LPN - Reason: Patient/family refused) 1011 (Not Given - Provider: Anna Spencer RN - Reason: Medication not available)1230 (Given - Provider: Anna Spencer RN - Comment: med found)2043 (Not Given - Provider: Kenyatta Lucas LPN - Reason: Patient/family refused) 0800 (Given - Provider: Joon Hunter RN) lactated Ringer's bolus 1,000 mL 1,000 mL, Intravenous, Once, 1 dose, On Thu12/20/21 at 1250, Administer over 5 Hours, Routine 1250 (Canceled Entry - Provider: Automatic Discharge Provider - Comment: Automatically canceled at discontinue of medication order) lactated Ringer's infusion 1,000 mL (COMPLETED) 1,000 mL, Intravenous, Once, 1 dose, On Thu12/20/21 at 1030, STAT 1224 (New Bag - Provider: Walt Luna) lurasidone (Latuda) tablet 40 mg 40 mg, Oral, Daily with breakfast, First dose on Thu12/21/21 at 0800, Until Discontinued, Routine 0946 (Given - Provider: Anna Spencer RN) 0757 (Given - Provider: Joon Hunter RN) naloxone (Narcan) injection 2 mg (COMPLETED) 2 mg, Intravenous, Once, 1 dose, On Thu12/20/21 at 1225, Routine 0945 (Given by Other - Provider: Drew Mueller, PharmD) ondansetron (Zofran) injection 4 mg (COMPLETED) 4 mg, Intravenous, Once, 1 dose, On Thu12/20/21 at 1045, STAT 1141 (Given - Provider: Jeffery Dunne) pancrelipase (Creon) 60937 units capsule 2 capsule, Oral, 3 times daily with meals, First dose on Thu12/20/21 at 1230, Until Discontinued, Routine 1230 (Canceled Entry - Provider: Automatic Discharge Provider - Comment: Automatically canceled at discontinue of medication order)1801 (Given - Provider: Brooke Bella) 0945 (Given - Provider: Anna Spencer RN)1229 (Given - Provider: Anna Spencer RN)1657 (Given - Provider: Anna Spencer RN) 0756 (Given - Provider: Joon Hunter, CHANDNI)1200 (Given - Provider: Joon Hunter RN) pantoprazole (Protonix) EC tablet 40 mg 40 mg, Oral, 2 times daily, First dose on Thu12/20/21 at 1220, Until Discontinued, Routine 1220 (Canceled Entry - Provider: Automatic Discharge Provider - Comment: Automatically canceled at discontinue of medication order)202 (Given - Provider: Kenyatta Lucas LPN) 0945 (Given - Provider: Anna Spencer RN)204 (Given - Provider: Kenyatta Lucas LPN) 0800 (Given - Provider: Joon Hunter RN) polyethylene glycol (Miralax) packet 17 g 17 g, Oral, Daily, First dose on Thu12/20/21 at 1215, Until Discontinued, Routine 1215 (Canceled Entry - Provider: Automatic Discharge Provider - Comment: Automatically canceled at discontinue of medication order) 0949 (Not Given - Provider: Anna Spencer RN - Reason: Patient/family refused) 0801 (Not Given - Provider: Joon Hunter RN - Reason: Patient/family refused) pregabalin (Lyrica) capsule 300 mg 300 mg, Oral, 2 times daily, First dose on Thu12/21/21 at 0945, Until Discontinued, Routine 0955 (Given - Provider: Anan Spencer RN)204 (Given - Provider: Kenyatta Lucas LPN) 0800 (Given - Provider: Joon Hunter RN) senna (Senokot) tablet 17.2 mg 17.2 mg (2 tablet), Oral, Nightly, First dose on Thu12/20/21 at 2100, Until Discontinued, Routine 2116 (Not Given - Provider: Kenyatta Lucas LPN - Reason: Patient/family refused) 2042 (Not Given - Provider: Kenyatta Lucas LPN - Reason: Patient/family refused) sucralfate (Carafate) 1 GM/10ML suspension 1 g 1 g, Oral, 4 times daily with meals and nightly, First dose on Thu12/20/21 at 1230, Until Discontinued, Routine 1230 (Canceled Entry - Provider: Automatic Discharge Provider - Comment: Automatically canceled at discontinue of medication order)180 (Given - Provider: Brooke Bella)2022 (Given - Provider: Kenyatta Lucas LPN) 0946 (Given - Provider: Anna Spencer, CHANDNI)1229 (Given - Provider: Anna Spencer, CHANDNI)1657 (Given - Provider: Anna Spencer, CHANDNI)2040 (Given - Provider: Kenyatta Lucas LPN) 0756 (Given - Provider: Joon Hunter, CHANDNI)1200 (Given - Provider: Joon Hunter, CHANDNI) venlafaxine XR (Effexor-XR) 24 hr capsule 150 mg 150 mg, Oral, Daily with breakfast, First dose on Thu12/21/21 at 0800, Until Discontinued, Routine 0946 (Given - Provider: Anna Spencer, CHANDNI) 0757 (Given - Provider: Joon Hunter, CHANDNI) PRN Medication Order 12/20/2021 12/21/2021 12/22/2021 acetaminophen (Tylenol) tablet 1,000 mg 1,000 mg, Oral, Every 6 hours PRN, Starting on Thu12/20/21 at 1217, Until Thu12/22/21 at 1538, Routine, mild pain 2023 (Given - Provider: Kenyatta Lucas LPN) 0252 (Given - Provider: Kenyatta Lucas LPN)0946 (Given - Provider: Anna Spencer RN)1658 (Given - Provider: Anna Spencer RN)2347 (Given - Provider: Kenyatta Lucas LPN) 0602 (Given - Provider: Kenyatta Lucas LPN) LORazepam (Ativan) tablet 1 mg 1 mg, Oral, Daily PRN, Starting on Thu12/20/21 at 1528, Until 12/22/21 at 1538, Routine, anxiety, seizures 1623 (Given - Provider: Brooke Bella) 0956 (Given - Provider: Anna Spencer RN) 0152 (Given - Provider: Kenyatta Lucas LPN) melatonin tablet 9 mg 9 mg, Oral, Nightly PRN, Starting on Thu12/20/21 at 1217, Until 12/22/21 at 1538, Routine, sleep 202 (Given - Provider: Kenyatta Lucas LPN) 2041 (Given - Provider: Kenyatta Lucas LPN) naloxone (Narcan) injection 0.4 mg 0.4 mg, Intravenous, As needed, Starting on Thu12/20/21 at 1256, Until 12/22/21 at 1538, Routine, opioid reversal oxyCODONE (Roxicodone) immediate release tablet 5 mg 5 mg, Oral, Every 6 hours PRN, Starting on Thu12/20/21 at 1336, Until 12/22/21 at 1538, Routine, severe pain 1425 (Given - Provider: Brooke Bella)2022 (Given - Provider: Kenyatta Lucas LPN) 0252 (Given - Provider: Kenyatta Lucas LPN)0950 (Given - Provider: Anna Spencer RN)1657 (Given - Provider: Anna Spencer RN)2348 (Given - Provider: Kenyatta Lucas LPN) 0602 (Given - Provider: Kenyatta Lucas LPN)1200 (Given - Provider: Joon Hunter RN) sodium chloride 0.9 % flush 10 mL(Linked Group 1) 10 mL, Intravenous, Every 8 hours PRN, Starting on Thu12/20/21 at 1211, Until 12/22/21 at 1538, Routine, line care sodium chloride 0.9 % flush 10 mL(Linked Group 1) 10 mL, Intravenous, As needed, Starting on Thu12/20/21 at 1211, Until 12/22/21 at 1538, Routine, line care Linked Groups Order Group 1: Insert peripheral IV (COMPLETED) Once, On Thu12/20/21 at 1212, For 1 occurrence And Saline lock IV (COMPLETED) Once, On Thu12/20/21 at 1212, For 1 occurrence And sodium chloride 0.9 % flush 10 mLJump to med 10 mL, Intravenous, Every 8 hours PRN, Starting on Thu12/20/21 at 1211, Until 12/22/21 at 1538, Routine, line care And sodium chloride 0.9 % flush 10 mLJump to med 10 mL, Intravenous, As needed, Starting on Thu12/20/21 at 1211, Until Thu12/22/21 at 1538, Routine, line care documented in this encounter Additional Health Concerns Assessment Noted Time A fall risk assessment has been complete d for the patient 11/21/2020 2:30 PM EDT documented as of this encounter Care Teams Recycling Assistant Relationship Specialty Start Date End Date Elmo Escobar MD PCP - General 10/18/20 01/05/23 documented as of this encounter
--- OUTSIDE RECORDS SUMMARY | 2024-02-03 15:23 | XMS_ITS | Encounter Summary ---
Author Organization Healthcare Address [address] [place] [address] Care Team Providers Care Cook Ship Name Role Phone Elmo Escobar MD Primary Care Provider [phone] Reason for Visit * Reason Comments Abdominal Pain Encounter Details Date Type Department Care Team (Late st Contact Info) Description 10/14/2021 1:39 PM EDT - 10/14/2021 4:12 PM EDT Emergency [facility] Emergency Department [address] [place] [address] Abdominal pain, epigastric (Primary Dx); Alcohol use Discharge Disposition: Home or Self Care Social [...] suspected to have Coronavirus/COVID-19? No / Unsure 10/14/2021 1:38 PM EDT documented as of this encounter Last Filed Vital Signs Vital Sign Reading Time Taken Comments Blood Pressure 148/80 10/14/2021 4:11 PM EDT Pulse 89 10/14/2021 4:11 PM EDT Temperature 37 ??C (98.6 ??F) 10/14/2021 4:11 PM EDT Respiratory Rate 18 10/14/2021 4:11 PM EDT Oxygen Saturation 95% 10/14/2021 4:11 PM EDT Inhaled Oxygen Concentration - - Weight 102 kg (223 lb 15.8 oz) 10/14/2021 2:51 P M EDT Height 165.1 cm (5' 5 ) 10/14/2021 2:51 PM EDT Body Mass Index 37.27 10/14/2021 2:51 PM EDT documented in this encounter Discharge Instructions * Discharge Instructions* Abigail Thompson APRN - 10/14/2021 3:59 PM EDT Avoid any further alcohol use, clear liquid diet, advanced as tolerated. Follow- up outpatient with primary care tomorrow as scheduled, any new or worsening symptoms please return to the emergency department. Follow-up outpatient with GI clinic. * Attachments The following attachments cannot be sent through Care Everywhere. * Pain Response,??Understanding (Croatian) documented in this encounter Medications at [...] hours if needed for severe pain. 2 pancrelipase, [id number], (Creon) [id number] units capsule Take 2 capsules by mouth [...] * ED Provider Notes - Abigail Thompson, ESTEBAN - 10/14/2021 1:25 PM EDT HPI Chief Complaint Patient presents with Abdominal Pain Lila Mcnally is a 35 y.o. female PMH pancreatitis, fibromyalgia, obesity, anxiety, depression, GERD, HTN who presents to the Emergency Department with complaints of epigastric abdominal pain thatstarted yesterday. States pain feels like her previous pancreatitis pain. Seen at OSH 2 weeks ago for same pain, had a CT per patient that showed no acute pancreatitis. States, usually they just giveme a shot and I go home. Takes oxycodone for pain, has 2 doses of pain medication left at home and follows up with PCP tomorrow for pain med refill. Did not take her pain meds today as she was comingto ER. Had 2 episodes of N/V this AM. Denies any fevers, chills, headache, chest pain, shortness ofbreath, cough, dysuria symptoms. 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 by: Patient [...] seizures and syncope. Psychiatric/Behavioral: The patient is not nervous/anxious. All other systems reviewed and are negative. Physical Exam ED Triage Vitals [10/14/21 1338] Temp Heart Rate Resp BP 37.3 ??C (99.2 ??F) 116 16 (!) 154/102 SpO2 Temp Source Heart Rate Source Patient [...] Course & MDM Clinical Impressions as of 10/14/212043 Abdominal pain, epigastric Alcohol use ED Disposition: MDM Number of Diagnoses or Management Options Abdominal pain, epigastric Alcohol use Diagnosis management comments: Lila Mcnally is a 35 yrs old female presents today for abdominalpain. Differential diagnosis include pancreatitis, colitis, gastritis, mesenteric ischemia. In order to fully explore differential these tests and treatments were ordered. Orders Placed This Encounter Urine culture- (clean catch) CMP Lipase Lactic acid, venous Ethyl Alcohol Plasma hCG qualitative CBC Drug abuse screen Urinalysis with reflex microscopic Urinalysis Microscopic Examination Medications sodium chloride 0.9 % infusion - 1,000mL (0 mL Intravenous Stopped 10/14/21 1558) ondansetron (Zofran) injection 4 mg (4 mg Intravenous Given 10/14/21 1454) morphine PF 4 mg (4 mg Intravenous Given 10/14/21 1454) acetaminophen (Tylenol) tablet 650 mg (650 mg Oral Given 10/14/21 1606) Old records for this patient were reviewed and found to be pertinent. Records review indicates thatpatient has h/o pancreatitis. Lab results were reviewed independently and can be interpreted as actionable. Lab Results Labs Reviewed COMPREHENSIVE METABOLIC PANEL, PLASMA - Abnormal Glucose, Plasma 97 BUN, Plasma 6 (*) Creatinine, Plasma 0.59 (*) BUN/Creatinine Ratio 10 Sodium, Plasma 141 Potassium, Plasma 3.7 Chloride, Plasma 106 CO2, Plasma 21 (*) Anion Gap 14 Total Calcium, Plasma 8.8 (*) Total Protein 6.7 Albumin, Plasma 4.1 AST, Plasma 21 ALT, Plasma 20 Alkaline Phosphatase, Plasma 105 (*) Total Bilirubin, Plasma <0.2 (*) eGFRcr 121.5 LIPASE, PLASMA - Abnormal Lipase, Plasma 64 (*) ETHYL ALCOHOL PLASMA - Abnormal Ethanol Plasma 184 (*) Narrative: Enzymatic Assay: Performed on [employer]. CBC W/O DIFFERENTIAL - Abnormal WBC Count 6.60 RBC Count 4.46 HGB 11.7 HCT 37.0 Platelet Count 212 MCV 83 MCH 26.2 MCHC 31.6 RDW 15.9 (*) MPV 9.9 nRBC 0.0 URINALYSIS WITH REFLEX MICROSCOPIC - Abnormal Color, Urine Yellow Clarity, Urine Clear Spec [place], Urine <=1.005 pH, Urine 6.0 Protein, Urine Negative Glucose, Urine Negative Ketones, Urine Negative Blood, Urine Small (*) Bilirubin, Urine Negative Urobilinogen, Urine 0.2 Leukocytes, Urine Negative Nitrite, Urine Negative RBC, Urine 1 WBC, Urine 0 - 5 Squamous Epithelial Cells 0 - 5 Hyaline Casts 0 - 8 Bacteria, Urine Negative Narrative: Performed by manual method [email or web address] HEPATITIS C ANTIBODY - Normal Hepatitis C Antibody Negative LACTATE, VENOUS - Normal Lactate, Venous, Whole Blood 2.2 TEST QUALITATIVE PLASMA - Normal Test Negative Narrative: Reference Range: Males and non- females: Negative. HIV 1/2 ANTIBODY/ANTIGEN SCREEN - Normal HIV 1 & 2 Antibody/Antigen Screen Nonreactive URINE CULTURE ED PROTOCOL HIV 1/2 ANTIBODY/ANTIGEN SCREEN Narrative: The following orders were created for panel order ED Protocol - HIV 1/2 Antibody/AntigenScreen. Procedure Abnormality Status --------- ------ HIV 1 & 2 Antibody/Antige...[[id number]] Normal Final result Please view results for these tests on the individual orders. DRUG ABUSE SCREEN, URINE Amphetamine Screen Urine Negative Benzodiazepines Screen Urine Negative Cannabinoid Screen Urine Negative Cocaine Screen Urine Negative Barbiturate Screen Urine Negative Opiate Screen Urine Negative Methadone Screen Urine Negative Buprenorphine Screen Urine Negative Fentanyl Screen Urine Negative Oxycodone Screen Urine Negative URINALYSIS MICROSCOPIC FOR UA REFLEX Patient reevaluated after treatments provided and condition improved with medications given. Based on work up today patient did not require consult with any service Ultimately, this patient was Discharged Home (Discharge) The primary encounter diagnosis was Abdominal pain, epigastric. A diagnosis of Alcohol use was also pertinent to this visit. .Patient was counseled on the diagnoses. Patient is requested to follow up with GI in order to obtain routine follow-up. Instructions on follow up as well as precautions to return to the ER provided verbally by the EDAPP, as well as written in patients dischargeeducation packet. I discussed with patient importance of alcohol cessation, she requested additional pain medication prior to discharge and was offered tylenol, she declined stating this would not help her abdominal pain. As patient alcohol level was 184 and had received IV morphine, lipase mildly e levated at 64 most likely due to alcohol use, tolerating oral fluids in ED with no emesis recommended alcohol cessation, clear liquid diet and keep follow up with PCP tomorrow. Patient agreeable to this plan. Amount and/or Complexity of Data Reviewed Clinical lab tests: reviewed Decide to obtain previous medical records or to obtain history from someone other than the patient:yes Patient Progress Patient progress: improved ED Prescriptions None Sign Off Checklist Clinical Impression: Complete ED Disposition: Complete Abigail Thompson APRN 10/14/212051 Cosigned by George Martinez MD at 10/15/2021 8:06 AM EDT Associated attestation - George Martinez MD - 10/15/2021 8:06 AM EDT The patient was seen only by Advanced Practice Provider (AJAY). * ED Triage Notes - Andrew Gonzalez RN - 10/14/2021 1:25 PM EDT Pt with c/o luq abd pain with n/v/d since yesterday. documented in this encounter Plan of Treatment Not on file documented as of this encounter Procedures Procedure Name Priority Date/Time Associated Diagnosis Comments URINALYSIS MICROSCOPIC FOR UA REFLEX STAT 10/14/2021 2:53 PM EDT ED PROTOCOL HIV 1/2 ANTIBODY/ANTIGEN SCREEN W/REFLEX TO HIV 1/2 ANTIBODY DIFFERENTIATION STAT 10/14/2021 2:53 PM EDT LACTATE, VENOUS STAT 10/14/2021 2:53 PM EDT ETHYL ALCOHOL PLASMA STAT 10/14/2021 2:53 PM EDT HIV 1/2 ANTIBODY/ANTIGEN SCREEN WITH REFLEX TO HIV I/II DIFFERENTIATION STAT 10/14/2021 2:53 PM EDT HEPATITIS C ANTIBODY - ED W/REFLEX TO HCV QUANT PCR STAT 10/14/2021 2:53 PM EDT DRUG ABUSE SCREEN, URINE STAT 10/14/2021 2:53 PM EDT URINALYSIS WITH REFLEX MICROSCOPIC STAT 10/14/2021 2:53 PM EDT CBC W/O DIFFERENTIAL STAT 10/14/2021 2:53 PM EDT URINE CULTURE STAT 10/14/2021 2:53 PM EDT TEST QUALITATIVE PLASMA STAT 10/14/2021 2:53 PM EDT LIPASE, PLASMA STAT 10/14/2021 2:53 PM EDT COMPREHENSIVE METABOLIC PANEL, PLASMA STAT 10/14/2021 2:53 PM EDT documented in this encounter Results * Urinalysis Microscopic Examination (10/14/2021 2:53 PM EDT) Urine Urine specimen obtained by clean catch procedure / Unknown Non-blood Collection / Unknown 10/14/2021 2:53 PM EDT 10/14/2021 3:04 PM EDT us Abigail Thompson [employer] [facility] URINE ORDERABLES Final Result Performing Organization Address [facility] Co de Phone Number [facility]ARE [facility] [address] [place] [address] * HIV 1 & 2 Antibody/Antigen Screen (10/14/2021 2:53 PM EDT) Pathologist [facility] [place] HIV 1 & 2 Antibody/Anti gen Screen Nonreactive Nonreactive 10/14/2021 7:10 PM EDT [facility] Blood Venous blood specimen / Unknown Venipuncture / Unknown 10/14/2021 2:53 PM EDT 10/14/2021 3:05 PM EDT Abigail Thompson APRN LAB BLOOD ORDERABLES Final Result Performing Organization Address [facility] de Phone Number [facility]ARE [facility] [address] [place] [address] * Hepatitis C Antibody - ED (10/14/2021 2:53 PM EDT) Pathologist [facility] [place] Hepatitis C Antibody Negative Negative 10/14/2021 7:08 PM EDT [facility] Blood Venous blood specimen / Unknown Venipuncture / Unknown 10/14/2021 2:53 PM EDT 10/14/2021 3:05 PM EDT us Abigail Thompson [employer] [facility] BLOOD ORDERABLES Final Result Performing Organization Address [facility] de Phone Number [facility] [address] [place] [address] * (ABNORMAL) Urine culture- (clean catch) (10/14/2021 2:53 PM EDT) [facility] Culture 10,000 - 100,000 CFU/mL Mixed urogenital , fecal, or skin ángela present.(A ) 10/15/2021 12:55 PM EDT [facility] Urine Urine specimen obtained by clean catch procedure / Unknown Non-blood Collection / Unknown 10/14/2021 2:53 PM EDT 10/14/2021 3:05 PM EDT us Abigail Nathaniel Thompson APRN LAB MICROBIOLOGY - GENERAL ORDERABLES Final Result [facility] [address] [place] [address] * (ABNORMAL) Urinalysis with reflex microscopic (10/14/2021 2:53 PM EDT) Color, Urine Yellow LAB URINALYSIS - AUTOMATED METHOD 10/14/2021 3:31 PM EDT [facility] Clarity, Urine Clear LAB URINALYSIS - AUTOMATED METHOD 10/14/2021 3:31 PM EDT [facility] Spec [place], Urine <=1.005 <=1.005 to >=1.030 LAB URINALYSIS - AUTOMATED METHOD 10/14/2021 3:31 PM EDT [facility] pH, Urine 6.0 4.5 to 8 LAB URINALYSIS - AUTOMATED METHOD 10/14/2021 3:31 PM EDT [facility] Protein, Urine Negative Negative mg/dL LAB URINALYSIS - AUTOMATED METHOD 10/14/2021 3:31 PM EDT [facility] Glucose, Urine Negative Negative mg/dL LAB URINALYSIS - AUTOMATED METHOD 10/14/2021 3:31 PM EDT [facility] Ketones, Urine Negative Negative mg/dL LAB URINALYSIS - AUTOMATED METHOD 10/14/2021 3:31 PM EDT [facility] Blood, Urine Small(A) Negative LAB URINALYSIS - AUTOMATED METHOD 10/14/2021 3:31 PM EDT [facility] Bilirubin, Urine Negative Negative LAB URINALYSIS - AUTOMATED METHOD 10/14/2021 3:31 PM EDT [facility] Urobilinogen, Urine 0.2 0.2 to 1.0 mg/dL LAB URINALYSIS - AUTOMATED METHOD 10/14/2021 3:31 PM EDT [facility] Leukocytes, Urine Negative Negative LAB URINALYSIS - AUTOMATED METHOD 10/14/2021 3:31 PM EDT [facility] Nitrite, Urine Negative Negative LAB URINALYSIS - AUTOMATED METHOD 10/14/2021 3:31 PM EDT [facility] RBC, Urine 1 0 to 3 /HPF 10/14/2021 3:31 PM EDT [facility] Comment:This result was prev iously suppressed from the chart. WBC, Urine 0 - 5 0 to 5 /HPF 10/14/2021 3:31 PM EDT [facility] Comment:This result was prev iously suppressed from the chart. Squamous Epithelial Cells 0 - 5 0 to 5 /HPF 10/14/2021 3:31 PM EDT [facility] Comment:This result was prev iously suppressed from the chart. Hyaline Casts 0 - 8 0 to 8 /LPF 10/14/2021 3:31 PM EDT [facility] Comment:This result was prev iously suppressed from the chart. Bacteria, Urine Negative Negative 10/14/2021 3:31 PM EDT [facility] Comment:This result was prev iously suppressed from the chart. Urine Urine specimen obtained by clean catch procedure / Unknown Non-blood Collection / Unknown 10/14/2021 2:53 PM EDT 10/14/2021 3:04 PM EDT Narrative [facility] - 10/14/2021 3:31 PM EDT Performed by manual method Abigail Thompson APRN LAB URINE ORDERABLES Final Result [facility] [address] [place] [address] * Drug abuse screen (10/14/2021 2:53 PM EDT) Amphetamine Screen Urine Negative Cutoff: 500 ng/mL 10/14/2021 3:31 PM EDT [facility] Benzodiazepines Screen Urine Negative Cutoff: 200 ng/mL 10/14/2021 3:31 PM EDT [facility] Cannabinoid Screen Urine Negative Cutoff: 50 ng/mL 10/14/2021 3:31 PM EDT [facility] Cocaine Screen Urine Negative Cutoff: 300 ng/mL 10/14/2021 3:31 PM EDT [facility] Barbiturate Screen Urine Negative Cutoff: 200 ng/mL 10/14/2021 3:31 PM EDT [facility] Opiate Screen Urine Negative Cutoff: 300 ng/mL 10/14/2021 3:31 PM EDT [facility] Methadone Screen Urine Negative Cutoff: 300 ng/mL 10/14/2021 3:31 PM EDT [facility] Buprenorphine Screen Urine Negative Cutoff: 10 ng/mL 10/14/2021 3:31 PM EDT [facility] Fentanyl Screen Urine Negative Cutoff: 1 ng/mL 10/14/2021 3:31 PM EDT [facility] Oxycodone Screen Urine Negative Cutoff: 100 ng/mL 10/14/2021 3:31 PM EDT [facility] Urine Urine specimen obtained by clean catch procedure / Unknown Non-blood Collection / Unknown 10/14/2021 2:53 PM EDT 10/14/2021 3:04 PM EDT Abigail Thompson APRN LAB URINE ORDERABLES Final Result [facility] [address] [place] [address] * (ABNORMAL) CBC (10/14/2021 2:53 PM EDT) WBC Count 6.60 3.70 - 10.30 10*3/uL LAB HEMATOLOGY METHOD 10/14/2021 3:13 PM EDT [facility] RBC Count 4.46 3.90 - 5.20 10*6/uL LAB HEMATOLOGY METHOD 10/14/2021 3:13 PM EDT [facility] HGB 11.7 11.2 - 15.7 g/dL LAB HEMATOLOGY METHOD 10/14/2021 3:13 PM EDT [facility] HCT 37.0 34.0 - 45.0 % LAB HEMATOLOGY METHOD 10/14/2021 3:13 PM EDT [facility] Platelet Count 212 155 - 369 10*3/uL LAB HEMATOLOGY METHOD 10/14/2021 3:13 PM EDT [facility] MCV 83 79 - 98 fL LAB HEMATOLOGY METHOD 10/14/2021 3:13 PM EDT [facility] MCH 26.2 26.0 - 32.0 pg LAB HEMATOLOGY METHOD 10/14/2021 3:13 PM EDT [facility] MCHC 31.6 30.7 - 35.5 g/dL LAB HEMATOLOGY METHOD 10/14/2021 3:13 PM EDT [facility] RDW 15.9(H) 11.5 - 14.5 % LAB HEMATOLOGY METHOD 10/14/2021 3:13 PM EDT [facility] MPV 9.9 8.8 - 12.5 fL LAB HEMATOLOGY METHOD 10/14/2021 3:13 PM EDT [facility] nRBC 0.0 <=0.0 per 100 WBCs LAB HEMATOLOGY METHOD 10/14/2021 3:13 PM EDT [facility] Blood Venous blood specimen / Unknown Venipuncture / Unknown 10/14/2021 2:53 PM EDT 10/14/2021 3:05 PM EDT Abigail Thompson [employer] [facility] BLOOD ORDERABLES Final Result Performing Organization Address [facility] Co de Phone Number [facility] [address] [place] [address] * hCG qualitative (10/14/2021 2:53 PM EDT) Test Negative Negative 10/14/2021 3:42 PM EDT [facility] Blood Venous blood specimen / Unknown Venipuncture / Unknown 10/14/2021 2:53 PM EDT 10/14/2021 3:05 PM EDT Narrative [facility] - 10/14/2021 3:42 PM EDT Reference Range: Males and non- females: Negative. Abigail Thompson APRN LAB BLOOD ORDERABLES Final Result Performing Organization Address [facility] Phone Number [facility] [address] [place] [address] * (ABNORMAL) Ethyl Alcohol Plasma (10/14/2021 2:53 PM EDT) Ethanol Plasma 184(H) <10 mg/dL 10/14/2021 3:42 PM EDT [facility] Blood Venous blood specimen / Unknown Venipuncture / Unknown 10/14/2021 2:53 PM EDT 10/14/2021 3:05 PM EDT Narrative [facility] - 10/14/2021 3:42 PM EDT Enzymatic Assay: Performed on [employer]. Abigail Thompson APRN LAB BLOOD ORDERABLES Final Result Performing Organization Address [facility] Co de Phone Number [facility] [address] [place] [address] * Lactic acid, venous (10/14/2021 2:53 PM EDT) Pathologist [facility] [place] Lactate, Venous, Whole Blood 2.2 0.5 - 2.2 mmol/L LAB HEMATOLOGY METHOD 10/14/2021 3:10 PM EDT [facility] Blood Venous blood specimen / Unknown Venipuncture / Unknown 10/14/2021 2:53 PM EDT 10/14/2021 3:04 PM EDT Abigail Thompson APRN LAB BLOOD ORDERABLES Final Result Performing Organization Address [facility] Co de Phone Number [facility] [address] [place] [address] * (ABNORMAL) Lipase (10/14/2021 2:53 PM EDT) [facility] Lipase, Plasma 64(H) 19 - 63 U/L 10/14/2021 3:42 PM EDT [facility] Blood Venous blood specimen / Unknown Venipuncture / Unknown 10/14/2021 2:53 PM EDT 10/14/2021 3:05 PM EDT Abigail Thompson APRN LAB BLOOD ORDERABLES Final Result Performing Organization Address [facility] Phone Number [facility] [address] [place] [address] * (ABNORMAL) CMP (10/14/2021 2:53 PM EDT) [facility] Glucose, Plasma 97 74 - 99 mg/dL 10/14/2021 3:42 PM EDT [facility] BUN, Plasma 6(L) 7 - 21 mg/dL 10/14/2021 3:42 PM EDT [facility] Creatinine, Plasma 0.59(L) 0.60 - 1.10 mg/dL 10/14/2021 3:42 PM EDT [facility] BUN/Creatinine Ratio 10 10/14/2021 3:42 PM EDT [facility] Sodium, Plasma 141 136 - 145 mmol/L 10/14/2021 3:42 PM EDT [facility] Potassium, Plasma 3.7 3.7 - 4.8 mmol/L 10/14/2021 3:42 PM EDT [facility] Comment:Reference range for Serum potassium is 0.2 to 0.5 mmol/L higher than Plasma range. Chloride, Plasma 106 97 - 107 mmol/L 10/14/2021 3:42 PM EDT [facility] CO2, Plasma 21(L) 22 - 29 mmol/L 10/14/2021 3:42 PM EDT [facility] Anion Gap 14 6 - 16 mmol/L 10/14/2021 3:42 PM EDT [facility] Total Calcium, Plasma 8.8(L) 8.9 - 10.2 mg/dL 10/14/2021 3:42 PM EDT [facility] Total Protein 6.7 6.3 - 7.9 g/dL 10/14/2021 3:42 PM EDT [facility] Albumin, Plasma 4.1 3.5 - 5.2 g/dL 10/14/2021 3:42 PM EDT [facility] AST, Plasma 21 11 - 32 U/L 10/14/2021 3:42 PM EDT [facility] ALT, Plasma 20 8 - 33 U/L 10/14/2021 3:42 PM EDT [facility] Alkaline Phosphatase, Plasma 105(H) 35 - 104 U/L 10/14/2021 3:42 PM EDT [facility] Total Bilirubin, Plasma <0.2(L) 0.2 - 1.1 mg/dL 10/14/2021 3:42 PM EDT [facility] eGFRcr 121.5 mL/min/1.7 3m*2 10/14/2021 3:42 PM EDT [facility] Comment: Reported eGFRcr in mL/min/1.73m2 is based the CKD-EPI 2021 equation that does not use a race coefficient. Effective 09/18/21 our laboratory changed the eGFR calculation to the CKD-EPI 2021 equation from the previously reported eGFR, based on the MDRD equation. ??For comparisons between the two equations, please see laboratory website: ??[email or web address] Blood Venous blood specimen / Unknown Venipuncture / Unknown 10/14/2021 2:53 PM EDT 10/14/2021 3:05 PM EDT us Abigail Thompson APRN LAB BLOOD ORDERABLES Final Result [facility] [address] [place] [address] documented in this encounter Visit Diagnoses Diagnosis Abdominal pain, epigastric- Primary Alcohol use Other problems related to lifestyle documented in this encounter Administered Medications Inactive Administered Medications - up to 3 most recent administrations Medication Order MAR Action Action Date Dose Rate Site acetaminophen (Tylenol) tablet 650 mg 650 mg, Oral, Once, 1 dose, On Thu10/14/21 at 1600, STAT Given 10/14/2021 4:06 PM EDT 650 mg morphine PF 4 mg 4 mg, Intravenous, Once, 1 dose, On Thu10/14/21 at 1410, Routine Given 10/14/2021 2:54 PM EDT 4 mg ondansetron (Zofran) injection 4 mg 4 mg, Intravenous, Once, 1 dose, On Thu10/14/21 at 1410, STAT Given 10/14/2021 2:54 PM EDT 4 mg sodium chloride 0.9 % infusion - 1,000mL 1,000 mL, Intravenous, Once, 1 dose, On Thu10/14/21 at 1410, STAT New Bag 10/14/2021 2:54 PM EDT 1,000 mL documented in this encounter Active and Recently Administered Medications Times are shown in EDT. Scheduled Medication Order 10/12/2021 10/13/2021 10/14/2021 acetaminophen (Tylenol) tablet 650 mg (COMPLETED) 650 mg, Oral, Once, 1 dose, On Thu10/14/21 at 1600, STAT 1606 (Given - Provid er: Mireya Andrews RN) morphine PF 4 mg (COMPLETED) 4 mg, Intravenous, Once, 1 dose, On Thu10/14/21 at 1410, Routine 1454 (Given - Provid er: Dipika Ball RN) ondansetron (Zofran) injection 4 mg (COMPLETED) 4 mg, Intravenous, Once, 1 dose, On Thu10/14/21 at 1410, STAT 1454 (Given - Provid er: Dipika Ball RN) sodium chloride 0.9 % infusion - 1,000mL (COMPLETED) 1,000 mL, Intravenous, Once, 1 dose, On Thu10/14/21 at 1410, STAT 1454 (New Bag - Prov ider: Dipika Ball, CHANDNI)1558 (Stopped - Provider: Mireya Andrews RN) documented in this encounter Additional Health Concerns Assessment Noted Time A fall risk assessment has been complete d for the patient 11/21/2020 2:30 PM EDT documented as of this encounter Care Teams Cook Ship Relationship Specialty Start Date End Date Elmo Escobar MD PCP - General 10/18/20 01/05/23 documented as of this encounter
--- OUTSIDE RECORDS SUMMARY | 2024-02-03 15:23 | XMS_ITS | Encounter Summary ---
Author Organization Healthcare Address [address] [place] [address] Care Team Providers Care Outsole Flexer Name Role Phone Elmo Escobar MD Primary Care Provider [phone] Reason for Visit * Reason Comments Abdominal Pain Encounter Details Date Type Department Care Team (Late st Contact Info) Description 12/05/2021 12:31 PM EDT - 12/05/2021 3:20 PM EDT Emergency [facility] Emergency Department [address] [place] [address] Abdominal pain, epigastric (Primary Dx) [...] Sign Reading Time Taken Comments Blood Pressure 112/80 12/05/2021 3:19 PM EDT Pulse 107 12/05/2021 3:19 PM EDT Temperature 36.7 ??C (98.1 ??F) 12/05/2021 3:19 PM ED T Respiratory Rate 18 12/05/2021 3:19 PM EDT Oxygen Saturation 98% 12/05/2021 3:19 PM EDT Inhaled Oxygen Concentration - - Weight 107 kg (236 lb 15.9 oz) 12/05/2021 12:29 PM EDT Height 165.1 cm (5' 5 ) 12/05/2021 12:29 PM EDT Body Mass Index 39.44 12/05/2021 12:29 PM EDT documented in this encounter Discharge Instructions * Discharge Instructions* Abigail Thompson APRN - 12/05/2021 3:13 PM EDT Clear liquid diet, advanced as tolerated. Any new or worsening symptoms please return to the emergency department. * Attachments The following attachments cannot be sent through Care Everywhere. * Abdominal Pain, Adult (Lebanese) documented in this encounter Medications at Time [...] if needed for severe pain. 2 pancrelipase, Fnw-[id number]-Hbax, (Creon) [id number] units capsule Take 2 capsules by mouth [...] * ED Provider Notes - Abigail Thompson, LOG SKIDDER - 12/05/2021 12:23 PM EDT HPI Chief Complaint Patient presents with Abdominal Pain Lila Mcnally is a 35 y.o. female PMH chronic pancreatitis who presents to the Emergency Department with complaints of epigastric abdominal pain that radiates around LUQ since yesterday, has had 4episodes of emesis past 24 hours, denies hematemesis. States her abdominal pain feels like her chronic pancreatitis, was seen at [facility]SH ED yesterday, was told her lipase was over 500 but she did not want to be admitted. States pain and nausea have become worse, not able to drink any fluids or eat any food. Has been taking home dose of oxycodone with no improvement in symptoms. Denies any recent alcohol use. Denies any fevers or chills, headache, vision changes, chest pain, shortness of breath, cough, dysuria symptoms. 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 [...] are negative. Physical Exam ED Triage Vitals [12/05/21 1229] Temp Heart Rate Resp BP 36.3 ??C (97.4 ??F) 99 20 (!) 157/83 SpO2 Temp Source Heart Rate Source Patient [...] Course & MDM Clinical Impressions as of 12/05/21 1553 Abdominal pain, epigastric ED Disposition: MDM Number of Diagnoses or Management Options Abdominal pain, epigastric Diagnosis management comments: Lila Mcnally is a 35 yrs old female presents today for abdominalpain. Differential diagnosis include but not limited to AAA, colitis, peptic ulcer disease, pancreatitis, mesenteric ischemia. In order to fully explore differential these tests and treatments were ordered. Orders Placed This Encounter CMP Magnesium Lipase Lactic acid, venous CBC hCG qualitative Medications sodium chloride 0.9% infusion 1,000 mL (0 mL Intravenous Stopped 12/05/21 1459) ondansetron (Zofran) injection 4 mg (4 mg Intravenous Given 12/05/21 1321) HYDROmorphone (Dilaudid) injection 0.5 mg (0.5 mg Intravenous Given 12/05/21 1322) oxyCODONE (Roxicodone) immediate release tablet 5 mg (5 mg Oral Given 12/05/21 1417) Old records for this patient were reviewed and found to be pertinent. Records review indicates thatpatient has h/o chronic pancreatitis. [facility] from [facility], [address] abdomen and pelvis with contrast no acute findings. Lab results were reviewed independently and can be interpreted as non actionable. Lab Results Labs Reviewed COMPREHENSIVE METABOLIC PANEL, PLASMA - Abnormal Glucose, Plasma 94 BUN, Plasma 10 Creatinine, Plasma 0.63 BUN/Creatinine Ratio 16 Sodium, Plasma 141 Potassium, Plasma 4.0 Chloride, Plasma 102 CO2, Plasma 26 Anion Gap 13 Total Calcium, Plasma 9.9 Total Protein 6.9 Albumin, Plasma 4.5 AST, Plasma 15 ALT, Plasma 20 Alkaline Phosphatase, Plasma 106 (*) Total Bilirubin, Plasma <0.2 (*) eGFRcr 119.6 CBC W/O DIFFERENTIAL - Abnormal WBC Count 7.86 RBC Count 4.49 HGB 12.6 HCT 39.3 Platelet Count 262 MCV 88 MCH 28.1 MCHC 32.1 RDW 16.5 (*) MPV 10.0 nRBC 0.0 MAGNESIUM, PLASMA - Normal Magnesium, Plasma 2.0 LIPASE, PLASMA - Normal Lipase, Plasma 36 LACTATE, VENOUS - Normal Lactate, Venous, Whole Blood 2.0 TEST QUALITATIVE PLASMA - Normal Patient reevaluated after treatments provided and condition improved with medications given. Based on work up today patient did not require consult with any service Ultimately, this patient was Discharged Home (Discharge) The encounter diagnosis was Abdominal pain, epigastric. Patient was counseled on the diagnoses. Patient to continue her home meds as outpatient treatment. Patient is requested to follow up with PCP in order to obtain routine follow-up. Instructions on follow up as well as precautions toreturn to the ER provided verbally by the EDAPP, as well as written in patients discharge educationpacket. Patient had no emesis in the ED, tolerating oral fluids, feeling better after IV Zofran, IVDilaudid, oral oxycodone. Any new or worsening symptoms please return to the emergency department. Amount and/or Complexity of Data Reviewed Clinical lab tests: reviewed Patient Progress Patient progress: improved ED Prescriptions None Sign Off Checklist Clinical Impression: Complete ED Disposition: Complete Abigail Thompson APRN 12/05/21 1823 Cosigned by Carter Donis MD at 12/06/2021 7:25 AM EDT Associated attestation - Carter Donis MD - 12/06/2021 7:25 AM EDT I attest to being involved in more than half the total time in patient care. * ED Triage Notes - Verenice Martins RN - 12/05/2021 12:23 PM EDT C/O RUQ abdominal pain with n/v since yesterday morning - states she thinks it is her pancreatitis acting up documented in this encounter Plan of Treatment Not on file documented as of this encounter Procedures Procedure Name Priority Date/Time Associated Diagnosis Comments LACTATE, VENOUS STAT 12/05/2021 1:17 PM EDT CBC W/O DIFFERENTIAL STAT 12/05/2021 1:17 PM EDT TEST QUALITATIVE PLASMA STAT Add-on 12/05/2021 1:17 PM EDT MAGNESIUM, PLASMA STAT 12/05/2021 1:1 7 PM EDT LIPASE, PLASMA STAT 12/05/2021 1:17 PM EDT COMPREHENSIVE METABOLIC PANEL, PLASMA STAT 12/05/2021 1:17 PM EDT documented in this encounter Results * hCG qualitative (12/05/2021 1:17 PM EDT) [facility] Test Negative Negative 12/05/2021 3:12 PM EDT [facility] Blood Venous blood specimen / Unknown Venipuncture / Unknown 12/05/2021 1:17 PM EDT 12/05/2021 1:20 PM EDT Narrative [facility] - 12/05/2021 3:12 PM EDT Reference Range: Males and non- females: Negative. us Abigail Thompson APRN LAB BLOOD ORDERABLES Final Result [facility] [address] [place] [address] * (ABNORMAL) CBC (12/05/2021 1:17 PM EDT) WBC Count 7.86 3.70 - 10.30 10*3/uL LAB HEMATOLOGY METHOD 12/05/2021 1:23 PM EDT [facility] RBC Count 4.49 3.90 - 5.20 10*6/uL LAB HEMATOLOGY METHOD 12/05/2021 1:23 PM EDT [facility] HGB 12.6 11.2 - 15.7 g/dL LAB HEMATOLOGY METHOD 12/05/2021 1:23 PM EDT [facility] HCT 39.3 34.0 - 45.0 % LAB HEMATOLOGY METHOD 12/05/2021 1:23 PM EDT [facility] Platelet Count 262 155 - 369 10*3/uL LAB HEMATOLOGY METHOD 12/05/2021 1:23 PM EDT [facility] MCV 88 79 - 98 fL LAB HEMATOLOGY METHOD 12/05/2021 1:23 PM EDT [facility] MCH 28.1 26.0 - 32.0 pg LAB HEMATOLOGY METHOD 12/05/2021 1:23 PM EDT [facility] MCHC 32.1 30.7 - 35.5 g/dL LAB HEMATOLOGY METHOD 12/05/2021 1:23 PM EDT [facility] RDW 16.5(H) 11.5 - 14.5 % LAB HEMATOLOGY METHOD 12/05/2021 1:23 PM EDT [facility] MPV 10.0 8.8 - 12.5 fL LAB HEMATOLOGY METHOD 12/05/2021 1:23 PM EDT [facility] nRBC 0.0 <=0.0 per 100 WBCs LAB HEMATOLOGY METHOD 12/05/2021 1:23 PM EDT [facility] Blood Venous blood specimen / Unknown Venipuncture / Unknown 12/05/2021 1:17 PM EDT 12/05/2021 1:20 PM EDT us Abigail Thompson APRN LAB BLOOD ORDERABLES Final Result [facility] [address] [place] [address] * Lactic acid, venous (12/05/2021 1:17 PM EDT) Lactate, Venous, Whole Blood 2.0 0.5 - 2.2 mmol/L LAB HEMATOLOGY METHOD 12/05/2021 1:24 PM EDT [facility] Blood Venous blood specimen / Unknown Venipuncture / Unknown 12/05/2021 1:17 PM EDT 12/05/2021 1:21 PM EDT Abigail Thompson LOG SKIDDER LAB BLOOD ORDERABLES Final Result Performing Organization Address City/[facility]/ZIP Co de Phone Number [facility] [address] [place] [address] * Lipase (12/05/2021 1:17 PM EDT) Lipase, Plasma 36 19 - 63 U/L 12/05/2021 1:40 PM EDT [facility] Blood Venous blood specimen / Unknown Venipuncture / Unknown 12/05/2021 1:17 PM EDT 12/05/2021 1:20 PM EDT Abigail Thompson APRN LAB BLOOD ORDERABLES Final Result Performing Organization Address City/[facility] Co de Phone Number [facility] [address] [place] [address] * Magnesium (12/05/2021 1:17 PM EDT) Magnesium, Plasma 2.0 1.9 - 2.4 mg/dL 12/05/2021 1:40 PM EDT [facility] Blood Venous blood specimen / Unknown Venipuncture / Unknown 12/05/2021 1:17 PM EDT 12/05/2021 1:20 PM EDT Abigail Thompson LOG SKIDDER LAB BLOOD ORDERABLES Final Result Performing Organization Address City/[facility]/ZIP Co de Phone Number [facility] [address] [place] [address] * (ABNORMAL) CMP (12/05/2021 1:17 PM EDT) Glucose, Plasma 94 74 - 99 mg/dL 12/05/2021 1:40 PM EDT [facility] BUN, Plasma 10 7 - 21 mg/dL 12/05/2021 1:40 PM EDT [facility] Creatinine, Plasma 0.63 0.60 - 1.10 mg/dL 12/05/2021 1:40 PM EDT [facility] BUN/Creatinine Ratio 16 12/05/2021 1:40 PM EDT [facility] Sodium, Plasma 141 136 - 145 mmol/L 12/05/2021 1:40 PM EDT [facility] Potassium, Plasma 4.0 3.7 - 4.8 mmol/L 12/05/2021 1:40 PM EDT [facility] Comment:Reference range for Serum potassium is 0.2 to 0.5 mmol/L higher than Plasma range. Chloride, Plasma 102 97 - 107 mmol/L 12/05/2021 1:40 PM EDT [facility] CO2, Plasma 26 22 - 29 mmol/L 12/05/2021 1:40 PM EDT [facility] Anion Gap 13 6 - 16 mmol/L 12/05/2021 1:40 PM EDT [facility] Total Calcium, Plasma 9.9 8.9 - 10.2 mg/dL 12/05/2021 1:40 PM EDT [facility] Total Protein 6.9 6.3 - 7.9 g/dL 12/05/2021 1:40 PM EDT [facility] Albumin, Plasma 4.5 3.5 - 5.2 g/dL 12/05/2021 1:40 PM EDT [facility] AST, Plasma 15 11 - 32 U/L 12/05/2021 1:40 PM EDT [facility] ALT, Plasma 20 8 - 33 U/L 12/05/2021 1:40 PM EDT [facility] Alkaline Phosphatase, Plasma 106(H) 35 - 104 U/L 12/05/2021 1:40 PM EDT [facility] Total Bilirubin, Plasma <0.2(L) 0.2 - 1.1 mg/dL 12/05/2021 1:40 PM EDT [facility] eGFRcr 119.6 mL/min/1.7 3m*2 12/05/2021 1:40 PM EDT [facility] Comment: Reported eGFRcr in mL/min/1.73m2 is based the CKD-EPI 2021 equation that does not use a race coefficient. Effective 09/18/21 our laboratory changed the eGFR calculation to the CKD-EPI 2021 equation from the previously reported eGFR, based on the MDRD equation. ??For comparisons between the two equations, please see laboratory website: ??[email or web address] Blood Venous blood specimen / Unknown Venipuncture / Unknown 12/05/2021 1:17 PM EDT 12/05/2021 1:20 PM EDT us Abigail Thompson LOG SKIDDER LAB BLOOD ORDERABLES Final Result Performing Organization Address City/State/ZIP Co wv Phone Number [facility] [address] [place] [phone] documented in this encounter Visit Diagnoses Diagnosis Abdominal pain, epigastric- Primary documented in this encounter Administered Medications Inactive Administered Medications - up to 3 most recent administrations Medication Order MAR Action Action Date Dose Rate Site HYDROmorphone (Dilaudid) injection 0.5 mg 0.5 mg, Intravenous, Once, 1 dose, On [place]abel 12/05/21 at 1300, STAT Given 12/05/2021 1:22 PM EDT 0.5 mg ondansetron (Zofran) injection 4 mg 4 mg, Intravenous, Once, 1 dose, On [place] 12/05/21 at 1300, STAT Given 12/05/2021 1:21 PM EDT 4 mg oxyCODONE (Roxicodone) immediate release tablet 5 mg 5 mg, Oral, Once, 1 dose, On Annabel 12/05/21 at 1410, STAT Given 12/05/2021 2:17 PM EDT 5 mg sodium chloride 0.9% infusion 1,000 mL 1,000 mL, Intravenous, Once, 1 dose, On Annabel 12/05/21 at 1300, STAT New Bag 12/05/2021 1:21 PM EDT 1,000 mL documented in this encounter Active and Recently Administered Medications Times are shown in EDT. Scheduled Medication Order 12/03/2021 12/04/2021 12/05/2021 HYDROmorphone (Dilaudid) injection 0.5 mg (COMPLETED) 0.5 mg, Intravenous, Once, 1 dose, On Annabel 12/05/21 at 1300, STAT 1322 (Given - Provid er: Verenice Martins RN) ondansetron (Zofran) injection 4 mg (COMPLETED) 4 mg, Intravenous, Once, 1 dose, On Annabel 12/05/21 at 1300, STAT 1321 (Given - Provid er: Verenice Martins RN) oxyCODONE (Roxicodone) immediate release tablet 5 mg (COMPLETED) 5 mg, Oral, Once, 1 dose, On Annabel 12/05/21 at 1410, STAT 1417 (Given - Provid er: Afia Jernigan RN) sodium chloride 0.9% infusion 1,000 mL (COMPLETED) 1,000 mL, Intravenous, Once, 1 dose, On Annabel 12/05/21 at 1300, STAT 1321 (New Bag - Prov ider: Verenice Martins RN)1459 (Stopped - Provider: Laureen Hawthorne) documented in this encounter Additional Health Concerns Assessment Noted Time A fall risk assessment has been complete d for the patient 11/21/2020 2:30 PM EDT documented as of this encounter Care Teams Outsole Flexer Relationship Specialty Start Date End Date Elmo Escobar MD PCP - General 10/18/20 01/05/23 documented as of this encounter
--- OUTSIDE RECORDS SUMMARY | 2024-02-03 15:23 | XMS_ITS | Encounter Summary ---
Author Organization [facility] Address [address] [place] [address] Care Team Providers Care Special Education Secretary Name Role Phone Elmo Escobar MD Primary Care Provider [phone] Encounter Details Date Type Department Care Team (Latest Contact Info) Description 10/14/2021 Travel Social History Tobacco Use Types Packs/Day [...] documented as of this encounter Care Teams Special Education Secretary Relationship Specialty Start Date End Date Elmo Escobar MD PCP - General 10/18/20 01/05/23 documented as of this encounter
--- OUTSIDE RECORDS SUMMARY | 2024-02-03 15:23 | XMS_ITS | Encounter Summary ---
Author Organization [facility] Address [address] [place] [address] Care Team Providers Care Brass Molder Name Role Phone Elmo Escobar MD Primary Care Provider [phone] Encounter Details Date Type Department Care Team (Latest Contact Info) Description 12/15/2021 Travel Social History Tobacco Use Types Packs/Day [...] documented as of this encounter Care Teams Brass Molder Relationship Specialty Start Date End Date Elmo Escobar MD PCP - General 10/18/20 01/05/23 documented as of this encounter
--- OUTSIDE RECORDS SUMMARY | 2024-02-03 15:24 | XMS_ITS | Encounter Summary ---
Author Organization Healthcare Address [address] [place] [address] Care Team Providers Care Parenting Skills Instructor Name Role Phone Elmo Escobar MD Primary Care Provider [phone] Reason for Visit * Reason Comments Abdominal Pain Encounter Details Date Type Department Care Team (Late st Contact Info) Description 07/08/2021 12:09 PM EDT - 07/08/2021 2:43 PM EDT Emergency [facility] Emergency Department [address] [place] [address] Abdominal pain, epigastric (Primary Dx); Nausea; Volume depletion; Hyponatremia Discharge Disposition: Home or Self Care Social [...] suspected to have Coronavirus/COVID-19? No / Unsure 07/08/2021 12:08 PM EDT documented as of this encounter Last Filed Vital Signs Vital Sign Reading Time Taken Comments Blood Pressure 122/80 07/08/2021 2:35 PM EDT Pulse 87 07/08/2021 2:35 PM EDT Temperature 36.8 ??C (98.2 ??F) 07/08/2021 12:09 PM E DT Respiratory Rate 16 07/08/2021 2:35 PM EDT Oxygen Saturation 98% 07/08/2021 2:35 PM EDT Inhaled Oxygen Concentration - - Weight - - Height - - Body Mass Index - - documented in this encounter Discharge Instructions * Discharge Instructions* Mireya Vo PA - 07/08/2021 2:29 PM EDT Keep all upcoming PCP, pain clinic, GI appts. Stay well hydrated, continue home meds. Ensure to verify your lab results on Qranio tom. Return to ER if develop fever, loss of consciousness, uncontrollable vomiting, uncontrollable pain, worsening symptoms or any concern documented in [...] if needed for severe pain. 2 pancrelipase, [id number], (Creon) [id number] units capsule Take 2 capsules by mouth [...] Provider Notes - Mireya Vo PA - 07/08/2021 11:54 AM EDT HPI Chief Complaint Patient presents with ??? Abdominal Pain Lila Mcnally is a 35 y.o. female well known to this ER with PMH pancreatitis, fibromyalgia, obesity, anxiety, depression, GERD, HTN who presents to the Emergency Department with complaints of Abdominal Pain. Reports epigastric pain with nausea. Says taking her PPI, oxycodone, zofran, and phenerg an. Says has upcoming pain clinic intake appt, GI appt in August, and came to this ER on 07/01 but payal was in the waiting room too long, so she drove to [facility] ER instead and was discharged and told her lipase was 304. Denies injury, fever, respiratory symptoms, diarrhea, constipation, symptoms. No data recorded Patient History Past [...] Problems Father Tobacco Use ??? Smoking status: Current Every Day Smoker Packs/day: 0.50 Years: 15.00 Pack years: 7.50 Types: Cigarettes ??? Smokeless tobacco: Never Used Vaping Use ??? Vaping Use: Never used Substance Use Topics ??? Alcohol use: Not Currently Comment: Alcoholic Drinks/day: Minimum alcohol consumption ??? Drug use: Not Currently Frequency: 4.0 times per week Comment: daily use Immunization History Immunization History: not reviewed Allergies: Allergies Allergen Reactions ??? Droperidol Other Experienced an acute dystonic reaction treated with diphenhydramine ??? Morphine And Related Other Abdominal pain ??? Tramadol Dizziness and Rash Review of Systems Review of Systems Gastrointestinal: Positive for abdominal pain and nausea. All other systems reviewed and are negative. Physical Exam ED Triage Vitals [07/08/21 1209] Temp Heart Rate Resp BP 36.8 ??C (98.2 ??F) 95 16 134/89 SpO2 Temp Source Heart Rate Source Patient Position 98 % Oral -- -- BP Location FiO2 (%) -- -- Physical Exam Constitutional: General: She is not in acute distress. Appearance: She is well-developed. She is not ill-appearing, toxic-appearing or diaphoretic. HENT: Head: Normocephalic and atraumatic. Mouth/Throat: Comments: Wearing mask Eyes: General: No scleral icterus. Cardiovascular: Rate [...] Carlson's sign, Rovsing's sign and McBurney's sign. Skin: General: Skin is warm and dry. Capillary Refill: Capillary refill takes less than 2 seconds. Findings: No erythema or rash. Neurological: General: No focal deficit present. Mental Status: She is alert and oriented to person, place, and time. Psychiatric: Mood and Affect: Mood normal. Behavior: Behavior normal. ED Course & MDM ED Course as of 07/08/21 1437 Mon July 08, 2021 1351 Lactic acid, venous Within normal limits. 1351 Urinalysis with reflex microscopic Vol depleted, no UTI, no blood, no ketosis 1412 Lipase 59 1412 hCG qualitative Neg 1412 CMP(!) Minimal hyponatremia, no gap. 1435 CBC w/diff Within normal limits. Clinical Impressions as of 07/08/21 1437 Abdominal pain, epigastric Nausea Volume depletion Hyponatremia ED Disposition: MDM Number of Diagnoses or Management Options Abdominal pain, epigastric Nausea Diagnosis management comments: In summary this is a 35 y.o. female who presented to the ED with complaints of Abdominal Pain. Concern for acute on chronic abdominal pain, recurrent pancreatitis, PUD,GERD, gastritis, SMA syndrome, potential drug seeking behavior. Received IV bolus, IV dilaudid and famotidine. Her vitals and abdominal exam are reassuring. Per chart review, patient has had 5 CT scan in 2021 which were benign and documented concern for opioid dependence with poor insight into her condition with addiction medicine consult during admission last mo. Workup showed normal lactic acid, normal lipase, no transaminitis, no gap, no UTI, minimal hyponatremia. Passed PO. Patient to continue home meds, to keep all GI, PCP, pain clinic appts, to stay well hydrated, and advance diet as tolerated. Amount and/or Complexity of Data Reviewed Clinical lab tests: ordered and reviewed Review and summarize past medical records: yes ED Prescriptions None Sign Off Checklist Clinical Impression: Complete ED Disposition: Complete DANIA Adams 07/08/[id number] Cosigned by George Martinez MD at 07/08/2021 3:09 PM EDT Associated attestation - George Martinez MD - 07/08/2021 3:09 PM EDT The patient was seen only by Advanced Practice Provider (TOM), and care was reviewed with me. * ED Triage Notes - Andrew Gonzalez, RN - 07/08/2021 11:54 AM EDT Pt with c/o abd pain, n/d x 2 days. Pt with hx of chronic pancreatitis. documented in this encounter Plan of Treatment Not on file documented as of this encounter Procedures Procedure Name Priority Date/Time Associated Diagnosis Comments CBC WITH AUTO DIFFERENTIAL STAT 07/08/2021 2:24 PM EDT URINALYSIS WITH REFLEX MICROSCOPIC STAT 07/08/2021 1:28 PM EDT LACTATE, VENOUS STAT 07/08/2021 1:27 PM EDT TEST QUALITATIVE PLASMA STAT 07/08/2021 1:27 PM EDT LIPASE, PLASMA STAT 07/08/2021 1:27 PM EDT COMPREHENSIVE METABOLIC PANEL, PLASMA STAT 07/08/2021 1:27 PM EDT documented in this encounter Results * CBC w/diff (07/08/2021 2:24 PM EDT) WBC Count 5.80 3.70 - 10.30 10*3/uL LAB HEMATOLOGY METHOD 07/08/2021 2:30 PM EDT [facility] RBC Count 4.25 3.90 - 5.20 10*6/uL LAB HEMATOLOGY METHOD 07/08/2021 2:30 PM EDT [facility] HGB 11.8 11.2 - 15.7 g/dL LAB HEMATOLOGY METHOD 07/08/2021 2:30 PM EDT [facility] HCT 35.6 34.0 - 45.0 % LAB HEMATOLOGY METHOD 07/08/2021 2:30 PM EDT [facility] Platelet Count 272 155 - 369 10*3/uL LAB HEMATOLOGY METHOD 07/08/2021 2:30 PM EDT [facility] MCV 84 79 - 98 fL LAB HEMATOLOGY METHOD 07/08/2021 2:30 PM EDT [facility] MCH 27.8 26.0 - 32.0 pg LAB HEMATOLOGY METHOD 07/08/2021 2:30 PM EDT [facility] MCHC 33.1 30.7 - 35.5 g/dL LAB HEMATOLOGY METHOD 07/08/2021 2:30 PM EDT [facility] RDW 14.1 11.5 - 14.5 % LAB HEMATOLOGY METHOD 07/08/2021 2:30 PM EDT [facility] MPV 9.0 8.8 - 12.5 fL LAB HEMATOLOGY METHOD 07/08/2021 2:30 PM EDT [facility] nRBC 0.0 <=0.0 per 100 WBCs LAB HEMATOLOGY METHOD 07/08/2021 2:30 PM EDT [facility] Differential Type Automated LAB HEMATOLOGY METHOD 07/08/2021 2:30 PM EDT [facility] Neutrophils % 56.0 % LAB HEMATOLOGY METHOD 07/08/2021 2:30 PM EDT [facility] Lymphocytes % 37.0 % LAB HEMATOLOGY METHOD 07/08/2021 2:30 PM EDT [facility] Monocytes % 6.0 % LAB HEMATOLOGY METHOD 07/08/2021 2:30 PM EDT [facility] Eosinophils % 0.0 % LAB HEMATOLOGY METHOD 07/08/2021 2:30 PM EDT [facility] Basophils % 1.0 % LAB HEMATOLOGY METHOD 07/08/2021 2:30 PM EDT [facility] Immature Granulocytes % 0.0 % LAB HEMATOLOGY METHOD 07/08/2021 2:30 PM EDT [facility] Neutrophils Absolute 3.28 1.60 - 6.10 10*3/uL LAB HEMATOLOGY METHOD 07/08/2021 2:30 PM EDT [facility] Lymphocytes Absolute 2.12 1.20 - 3.90 10*3/uL LAB HEMATOLOGY METHOD 07/08/2021 2:30 PM EDT [facility] Monocytes Absolute 0.33 0.30 - 0.90 10*3/uL LAB HEMATOLOGY METHOD 07/08/2021 2:30 PM EDT [facility] Eosinophils Absolute 0.00 0.00 - 0.50 10*3/uL LAB HEMATOLOGY METHOD 07/08/2021 2:30 PM EDT [facility] Basophils Absolute 0.05 0.00 - 0.10 10*3/uL LAB HEMATOLOGY METHOD 07/08/2021 2:30 PM EDT [facility] Immature Granulocytes Absolute 0.02 0.00 - 0.06 10*3/uL LAB HEMATOLOGY METHOD 07/08/2021 2:30 PM EDT [facility] Blood Venous blood specimen / Unknown Venipuncture / Unknown 07/08/2021 2:24 PM EDT 07/08/2021 2:25 PM EDT [facility] - 07/08/2021 2:30 PM EDT Therapeutic decision making should be based on absolute values, rather than percentages. us Mireya NAJERA LAB BLOOD ORDERABLES Final Resul t [facility] [address] [place] [id number] * Urinalysis with reflex microscopic (07/08/2021 1:28 PM EDT) Color, Urine Yellow LAB URINALYSIS - AUTOMATED METHOD 07/08/2021 1:37 PM EDT [facility] Clarity, Urine Cloudy LAB URINALYSIS - AUTOMATED METHOD 07/08/2021 1:37 PM EDT [facility] Spec [place], Urine >=1.030 <=1.005 to >=1.030 LAB URINALYSIS - AUTOMATED METHOD 07/08/2021 1:37 PM EDT [facility] pH, Urine 6.0 4.5 to 8 LAB URINALYSIS - AUTOMATED METHOD 07/08/2021 1:37 PM EDT [facility] Protein, Urine Negative Negative mg/dL LAB URINALYSIS - AUTOMATED METHOD 07/08/2021 1:37 PM EDT [facility] Glucose, Urine Negative Negative mg/dL LAB URINALYSIS - AUTOMATED METHOD 07/08/2021 1:37 PM EDT [facility] Ketones, Urine Negative Negative mg/dL LAB URINALYSIS - AUTOMATED METHOD 07/08/2021 1:37 PM EDT [facility] Blood, Urine Negative Negative LAB URINALYSIS - AUTOMATED METHOD 07/08/2021 1:37 PM EDT [facility] Bilirubin, Urine Negative Negative LAB URINALYSIS - AUTOMATED METHOD 07/08/2021 1:37 PM EDT [facility] Urobilinogen, Urine 1.0 0.2 to 1.0 mg/dL LAB URINALYSIS - AUTOMATED METHOD 07/08/2021 1:37 PM EDT [facility] Leukocytes, Urine Negative Negative LAB URINALYSIS - AUTOMATED METHOD 07/08/2021 1:37 PM EDT [facility] Nitrite, Urine Negative Negative LAB URINALYSIS - AUTOMATED METHOD 07/08/2021 1:37 PM EDT [facility] Urine Urine specimen obtained by clean catch procedure / Unknown Non-blood Collection / Unknown 07/08/2021 1:28 PM EDT 07/08/2021 1:32 PM EDT us Mireya NAJERA LAB URINE ORDERABLES Final Resul t Performing Organization Address City/[facility] de Phone Number [facility] [address] [place] [address] * hCG qualitative (07/08/2021 1:27 PM EDT) Test Negative Negative 07/08/2021 2:09 PM EDT [facility] Blood Venous blood specimen / Unknown Venipuncture / Unknown 07/08/2021 1:27 PM EDT 07/08/2021 1:31 PM EDT [facility]arr[facility] - 07/08/2021 2:09 PM EDT Reference Range: Males and non- females: Negative. us Mireya NAJERA LAB BLOOD ORDERABLES Final Resul t Performing Organization Address City/[facility] Co de Phone Number [facility] [address] [place] [address] * Lactic acid, venous (07/08/2021 1:27 PM EDT) Lactate, Venous, Whole Blood 0.7 0.5 - 2.2 mmol/L LAB HEMATOLOGY METHOD 07/08/2021 1:34 PM EDT [facility] Blood Venous blood specimen / Unknown Venipuncture / Unknown 07/08/2021 1:27 PM EDT 07/08/2021 1:31 PM EDT us Mireya NAJERA LAB BLOOD ORDERABLES Final Resul t Performing Organization Address City/[facility]/ZIP Co de Phone Number [facility] [address] [place] [address] * Lipase (07/08/2021 1:27 PM EDT) Lipase, Plasma 59 19 - 63 U/L 07/08/2021 2:09 PM EDT [facility] Blood Venous blood specimen / Unknown Venipuncture / Unknown 07/08/2021 1:27 PM EDT 07/08/2021 1:31 PM EDT us Mireya NAJERA LAB BLOOD ORDERABLES Final Resul t Performing Organization Address City/[facility] Co de Phone Number [facility] [address] [place] [address] * (ABNORMAL) CMP (07/08/2021 1:27 PM EDT) Glucose, Plasma 89 74 - 99 mg/dL 07/08/2021 2:09 PM EDT [facility] BUN, Plasma 10 7 - 21 mg/dL 07/08/2021 2:09 PM EDT [facility] Creatinine, Plasma 0.55(L) 0.60 - 1.10 mg/dL 07/08/2021 2:09 PM EDT [facility] BUN/Creatinine Ratio 18 07/08/2021 2:09 PM EDT [facility] Sodium, Plasma 133(L) 136 - 145 mmol/L 07/08/2021 2:09 PM EDT [facility] Potassium, Plasma 3.8 3.7 - 4.8 mmol/L 07/08/2021 2:09 PM EDT [facility] Comment:Reference range for Serum potassium is 0.2 to 0.5 mmol/L higher than Plasma range. Chloride, Plasma 101 97 - 107 mmol/L 07/08/2021 2:09 PM EDT [facility] CO2, Plasma 21(L) 22 - 29 mmol/L 07/08/2021 2:09 PM EDT [facility] Anion Gap 11 6 - 16 mmol/L 07/08/2021 2:09 PM EDT [facility] Total Calcium, Plasma 9.0 8.9 - 10.2 mg/dL 07/08/2021 2:09 PM EDT [facility] Total Protein 7.4 6.3 - 7.9 g/dL 07/08/2021 2:09 PM EDT [facility] Albumin, Plasma 4.4 3.5 - 5.2 g/dL 07/08/2021 2:09 PM EDT [facility] AST, Plasma 17 11 - 32 U/L 07/08/2021 2:09 PM EDT [facility] ALT, Plasma 14 8 - 33 U/L 07/08/2021 2:09 PM EDT [facility] Alkaline Phosphatase, Plasma 102 35 - 104 U/L 07/08/2021 2:09 PM EDT [facility] Total Bilirubin, Plasma 0.3 0.2 - 1.1 mg/dL 07/08/2021 2:09 PM EDT [facility] eGFR >60 >60 mL/min/1.7 3m*2 07/08/2021 2:09 PM EDT [facility] Comment:eGFR = estimated GFR ; eGFR units = mL/min/1.73 sq meters Chronic Kidney Disease is considered if eGFR <60 mL/min/1.73 sq meters Kidney failure is considered if eGFR is <15 mL/min/1.73 sq meters. eGFR assumes steady state plasma creatinine concentration; not applicable if renal function is rapidly changing or patient is on dialysis. eGFR, if AFR/AM >60 >60 mL/min/1.7 3m*2 07/08/2021 2:09 PM EDT [facility] Comment:eGFR = estimated GFR ; eGFR units = mL/min/1.73 sq meters Chronic Kidney Disease is considered if eGFR <60 mL/min/1.73 sq meters Kidney failure is considered if eGFR is <15 mL/min/1.73 sq meters. eGFR assumes steady state plasma creatinine concentration; not applicable if renal function is rapidly changing or patient is on dialysis. Blood Venous blood specimen / Unknown Venipuncture / Unknown 07/08/2021 1:27 PM EDT 07/08/2021 1:31 PM EDT us Mireya NAJERA LAB BLOOD ORDERABLES Final Resul t [facility] [address] [place] [id number] documented in this encounter Visit Diagnoses Diagnosis Abdominal pain, epigastric- Primary Nausea Nausea alone Volume depletion Volume depletion, unspecified Hyponatremia Hyposmolality and/or hyponatremia documented in this encounter Administered Medications Inactive Administered Medications - up to 3 most recent administrations Medication Order MAR Action Action Date Dose Rate Site famotidine (Pepcid) injection 20 mg 20 mg, Intravenous, Once, 1 dose, On Thu07/08/21 at 1225, STAT Given 07/08/2021 1:45 PM EDT 20 mg HYDROmorphone (Dilaudid) injection 0.25 mg 0.25 mg, Intravenous, Once, 1 dose, On Thu07/08/21 at 1225, STAT Given 07/08/2021 1:46 PM EDT 0.25 mg lactated Ringer's infusion 1,000 mL 1,000 mL, Intravenous, Once, 1 dose, On Thu07/08/21 at 1225, STAT New Bag 07/08/2021 1:50 PM EDT 1,000 mL documented in this encounter Active and Recently Administered Medications Times are shown in EDT. Scheduled Medication Order 07/06/2021 07/07/2021 07/08/2021 famotidine (Pepcid) injection 20 mg (COMPLETED) 20 mg, Intravenous, Once, 1 dose, On Thu07/08/21 at 1225, STAT 1345 (Given - Provid er: Mireya Munguia RN - Comment: route not available) HYDROmorphone (Dilaudid) injection 0.25 mg (COMPLETED) 0.25 mg, Intravenous, Once, 1 dose, On Thu07/08/21 at 1225, STAT 1346 (Given - Provid er: Mireya Munguia RN - Comment: route not available) lactated Ringer's infusion 1,000 mL (COMPLETED) 1,000 mL, Intravenous, Once, 1 dose, On Thu07/08/21 at 1225, STAT 1350 (New Bag - Prov ider: Mireya Munguia RN)1434 (Stopped - Provider: Mireya Munguia RN) documented in this encounter Additional Health Concerns Assessment Noted Time A fall risk assessment has been complete d for the patient 11/21/2020 2:30 PM EDT documented as of this encounter Care Teams Parenting Skills Instructor Relationship Specialty Start Date End Date Elmo Escobar MD PCP - General 10/18/20 01/05/23 documented as of this encounter
--- OUTSIDE RECORDS SUMMARY | 2024-02-03 15:24 | XMS_ITS | Encounter Summary ---
Author Organization Healthcare Address [address] [place] [address] Care Team Providers Care Insulator Technician Name Role Phone Elmo Escobar MD Primary Care Provider [phone] Reason for Visit * Reason Comments Abdominal Pain Vomiting Encounter Details Date Type Department Care Team (Late st Contact Info) Description 07/28/2021 1:57 PM EDT - 07/28/2021 7:59 PM EDT Emergency [facility] Emergency Department [address] [place] [address] Abdominal pain, epigastric (Primary Dx) [...] Sign Reading Time Taken Comments Blood Pressure 126/86 07/28/2021 6:07 PM EDT Pulse 83 07/28/2021 6:07 PM EDT Temperature 36.6 ??C (97.8 ??F) 07/28/2021 6:07 PM ED T Respiratory Rate 18 07/28/2021 6:07 PM EDT Oxygen Saturation 99% 07/28/2021 6:07 PM EDT Inhaled Oxygen Concentration - - Weight 99.2 kg (218 lb 11.1 oz) 07/28/2021 1:55 PM EDT Height - - Body Mass Index 36.39 07/21/2021 6:08 PM EDT documented in this encounter Discharge Instructions * Discharge Instructions* Luis Velasco PA - 07/28/2021 7:28 PM EDT Please continue to take your oxycodone or Tylenol as needed for pain relief at home. Please refrainfrom taking ibuprofen due to your duodenal ulcer. Follow-up with your primary care doctor in 3-5 days for re-evaluation. Return to the ER if you have worsening pain, fever, nausea, vomiting. documented in this encounter Medications at Time of Discharge naloxone (Narcan) 4 mg/0.1 mL nasal spray Administer 1 spray (4 mg total) into affected nostril(s) if needed for opioid reversal. Call 911. Give 4 mg (1 spray) into one nostril. Repeat every 2-3 minutes as needed, alternating nostrils, until medical assistance arrives. 1 each 05/24/2021 05/25/19 23 ondansetron ODT (Zofran-ODT) 4 MG disintegrating tablet Take 1 tablet (4 mg total) by mouth every 6 (six) hours if needed for nausea. 40 tablet 07/18/2021 08/18/19 22 acetaminophen (Tylenol) 500 MG tablet Take 1,000 mg by mouth every 6 (six) hours if needed for mild pain. 07/25/19 23 hydrOXYzine pamoate (Vistaril) 50 MG capsule Take 1 capsule (50 mg total) by mouth every 6 (six) hours if needed for anxiety for up to 10 days. 30 capsule 05/27/2021 12/21/19 22 ketoconazole (NIZOral) 2 % cream Apply 1 application topically 2 (two) times a day. 12/21/19 22 Latuda 40 MG tablet Take 40 mg by mouth 1 (one) time each day with breakfast. 10/14/2020 03/20/19 23 Melatonin 10 MG tablet Take 10 tablets by mouth at night if needed (sleep). 12/21/19 22 oxyCODONE (Roxicodone) 15 MG immediate release tablet Take 15 mg by mouth every 6 (six) hours if needed for severe pain. 12/21/19 22 pancrelipase, Prj-Jtgj-Iezv, (Creon) 69281-50206 units capsule Take 2 capsules by mouth 3 (three) times a day with meals. 03/20/19 23 pantoprazole (Protonix) 40 MG EC tablet Take 1 tablet (40 mg total) by mouth 2 (two) times a day. Do not crush, chew, or split. 120 tablet 04/20/2021 07/25/19 23 pregabalin (Lyrica) 100 MG capsule Take 1 capsule (100 mg) by mouth 3 (three) times a day. 10/28/19 24 sucralfate (Carafate) 1 GM/10ML suspension Take 10 mL (1 g total) by mouth 4 (four) times a day (with meals and nightly). 420 mL 05/27/2021 12/21/19 22 venlafaxine XR (Effoxor-XR) 150 MG 24 hr capsule Take 150 mg by mouth 1 (one) time each day. 07/07/2020 03/20/19 23 documented as of this encounter Miscellaneous Notes * ED Provider Notes - Luis Velasco PA - 07/28/2021 1:31 PM EDT HPI Chief Complaint Patient presents with ??? Abdominal Pain ??? Vomiting Lila Mcnally is a 35 y.o. female well known to this ER with PMH pancreatitis, fibromyalgia, obesity, anxiety, depression, GERD, HTN who presents to the Emergency Department with complaints of Abdominal Pain. Patient states since her last visit to the ER she is followed up with her primary care doctor who recommended she start cognitive behavioral therapy as well as attempt to change her pain regimen. Patient states for 4 days she did not have abdominal pain but yesterday began having a sharp shooting pain the center of her abdomen that wraps around towards her back. Patient states this issimilar to her pancreatic flare pain that she has intermittently. Patient states she attempted to take her oxycodone, ibuprofen, Tylenol, methocarbamol at home with no relief of her symptoms. Patientstates I need pain medicine, At this point I just want to rip my pancreas out it hurts so bad. She also endorses cold/hot flashes and nausea/vomiting associated with the pain. Patient denies hematochezia, fever, recent sick contacts, chest pain, shortness of breath, dysuria, hematuria. No data recorded Patient History Past Medical [...] Systems Review of Systems Constitutional: Positive for chills. Negative for fever. HENT: Negative for ear [...] are negative. Physical Exam ED Triage Vitals [07/28/21 1355] Temp Heart Rate Resp BP 36.7 ??C (98.1 ??F) 100 18 146/86 SpO2 Temp Source Heart Rate Source Patient [...] upper quadrant. Hernia: No hernia is present. Skin: General: Skin is warm and dry. Capillary Refill: Capillary refill takes less than 2 seconds. Neurological: General: No focal deficit present. Mental Status: She is alert and oriented to person, place, and time. Psychiatric: Mood and Affect: Mood normal. Behavior: Behavior normal. ED Course & MDM ED Course as of 07/28/21 2312 Sun Jul 28, 2021 1518 Lactate: 0.8 1518 CBC w/diff(!) No anemia or leukocytosis 1555 Magnesium: 2.1 1555 Lipase: 33 1556 Potassium(!): 4.9 1556 AST, Plasma(!): 60 1556 ALT, Plasma(!): 107 1556 Alkaline Phosphatase(!): 153 1712 Leukocytes, Urine(!): Trace 1721 Urine - Point of Care: Negative 1721 Leukocytes, Urine(!): Trace 1722 Nitrite, Urine: Negative 1722 Bacteria, Urine: Negative 1739 US Abdomen Focused Region Other (RUQ ), Pancreas (RUQ ), Bile Ducts (RUQ ) Mildly increased echogenicity of the hepatic parenchyma, compatible with a degree of steatosis. Otherwise no acute findings. 190 CT Abdomen Pelvis w IV Contrast 1. Unremarkable examination of the abdomen and pelvis. ?? 2. Stable 2 cm soft tissue nodule in the medial right breast as on prior. Clinical Impressions as of 07/28/212311 Abdominal pain, epigastric ED Disposition: [facility] Number of Diagnoses or Management Options Abdominal pain, epigastric Diagnosis management comments: MDM: Patient was seen in ED by Luis Velasco PA-C and Dr. Donis. In summary, patient is a 35-year-old female with a history of chronic pancreatitis who presents the ER for evaluation of abdominal pain. Differential diagnosis includes but is not limited to malingering, pancreatitis, cystitis, PUD, gastroenteritis. Evaluation includes CBC, CMP, lipase, lactate, UA. On arrival, patient is afebrile, nontoxic appearing, hemodynamically stable. Physical exam revealed tenderness palpation in the epigastric and left upper quadrant. Upon arrival to the ER patient was givena L of IV fluids, IV Zofran, IV morphine. Patient's labs were found to be unremarkable with no signof acute pancreatitis. Given patient presentation and continued pain CT abdomen pelvis as well as ultrasound of the bile ducts and pancreas were ordered. Patient was given another dose of IV morphineat this time. Ultrasound revealed steatosis of the liver but was otherwise unremarkable. CT abdomenpelvis revealed no acute abnormality as well as no pancreatitis. Advised patient of her negative lab oratory and imaging results. Patient continued to ask for narcotic pain medication at this time. Extensively counseled patient on the need to minimize her use of narcotics in the risks versus benefits of narcotics. Given patient's imaging and laboratory results there is no emergent intervention needed at this time. Advised patient to follow-up with primary care doctor as scheduled for re-evaluation and to discuss further pain management. Patient was not given a prescription for pain medicine atthis time as she has oxycodone 5 prescribed by her primary care doctor. Advised patient to take Tylenol as needed but try to avoid or minimize the use of ibuprofen as she has history of a gastric ulcer. Advised patient also take her carafate as prescribed. Patient and mother bedside were agreeable to care plan and patient was stable prior to discharge. Return precautions stressed. Amount and/or Complexity of Data Reviewed Clinical lab tests: reviewed Tests in the radiology section of CPT??: reviewed Decide to obtain previous medical records or to obtain history from someone other than the patient:yes ED Prescriptions None Sign Off Checklist Clinical Impression: Complete ED Disposition: Complete DANIA Mejia 07/28/21 9388 Cosigned by Carter Donis MD at 07/29/2021 11:01 PM EDT Associated attestation - Carter Donis MD - 07/29/2021 11:01 PM EDT The patient was seen only by Advanced Practice Provider (AJAY), and care was reviewed with me. * ED Triage Notes - Leatha Higgins RN - 07/28/2021 1:31 PM EDT Pt states that yesterday she began having abdominal pain and N/V and today is worse. Pt states she wants to rip out her pancreas . documented in this encounter Plan of Treatment Not on file documented as of this encounter Procedures Procedure Name Priority Date/Time Associated Diagnosis Comments CT ABDOMEN PELVIS W IV CONTRAST STAT 07/28/2021 6:30 PM EDT US ABDOMEN FOCUSED REGION STAT 07/28/2021 5:24 PM EDT URINALYSIS MICROSCOPIC FOR UA REFLEX STAT 07/28/2021 5:02 PM EDT , URINE STAT 07/28/2021 5:02 PM EDT URINALYSIS WITH REFLEX MICROSCOPIC STAT 07/28/2021 5:02 PM EDT LACTATE, VENOUS STAT 07/28/2021 2:59 PM EDT CBC WITH AUTO DIFFERENTIAL STAT 07/28/2021 2:59 PM EDT MAGNESIUM, PLASMA STAT 07/28/2021 2:5 9 PM EDT LIPASE, PLASMA STAT 07/28/2021 2:59 PM EDT COMPREHENSIVE METABOLIC PANEL, PLASMA STAT 07/28/2021 2:59 PM EDT documented in this encounter Results * CT Abdomen Pelvis w IV Contrast (07/28/2021 6:30 PM EDT) Anatomical Region Laterality Modality Abdomen, Pelvis Computed Tomogra phy Impressions 07/28/2021 7:30 PM EDT 1. Unremarkable examination of the abdomen and pelvis. 2. Stable 2 cm soft tissue nodule in the medial right breast as on prior. CRITICAL RESULT: ?? No. COMMUNICATION: Per this written report. Approved by Kali Schafer on 07/28/2021 6:40 PM By electronically signing this report, I, the attending physician, attest that I have personally reviewed the images/data for the above examination(s) and agree with the final edited report. Dictated by Kali Schafer on 07/28/2021 6:40 PM Signed by Abigail Abbott on 07/28/2021 7:30 PM Narrative 07/28/2021 7:30 PM EDT Exam/Procedure: CT ABDOMEN PELVIS W IV CONTRAST ordered by LUIS VELASCO, [id number] CLINICAL INDICATION: Nausea/vomiting TECHNIQUE: Imaging of the abdomen and pelvis was performed, from lung bases through pubic symphysis, using spiral technique, following administration of IV contrast, Omnipaque 300, 100 mL. Delayed (excretory phase) images were performed through the kidneys. Reformatted images in the coronal and sagittal planes were generated from the axial data set to facilitate diagnostic accuracy. Total DLP (Dose-Length Product): 1508.95 mGy.cm. Please note: The reported value represents the total of one or more individual components during the CT acquisition on this date and at this time, and as such, the same value may appear in more than one CT report depending on the interpreting/reporting physicians. COMPARISON: CT abdomen pelvis June 21, 2021 FINDINGS: Lung Bases: The lung bases are [...] The pelvic viscera are unremarkable. Body Wall: Stable well-defined 2 cm soft tissue nodule in the medial right breast. Bones: No acute fracture. Procedure Note True, Abigail Godwin MD - 07/28/2021 Exam/Procedure: CT ABDOMEN PELVIS W IV CONTRAST ordered by LUIS VELASCO,[id number] CLINICAL INDICATION: Nausea/vomiting TECHNIQUE: Imaging of the abdomen and pelvis was performed, from lung bases throughpubic symphysis, using spiral technique, following administration of IVcontrast, Omnipaque 300, 100 mL. Delayed (excretory phase) images wereperformed through the kidneys. Reformatted images in the coronal andsagittal planes were generated from the axial data set to facilitatediagnostic accuracy. Total DLP (Dose-Length Product): 1508.95 mGy.cm. Please note: The reportedvalue represents the total of one or more individual components during theCT acquisition on this date and at this time, and as such, the same valuemay appear in more than one CT report depending on theinterpreting/reporting physicians. COMPARISON: CT abdomen pelvis June 21, 2021 FINDINGS: Lung Bases: The lung bases are [...] The pelvic viscera are unremarkable. Body Wall: Stable well-defined 2 cm soft tissue nodule in the medial rightbreast. Bones: No acute fracture. IMPRESSION: 1. Unremarkable examination of the abdomen and pelvis. 2. Stable 2 cm soft tissue nodule in the medial right breast as onprior. CRITICAL RESULT: No. COMMUNICATION: Per this written report. Approved by Kali Schafer on 07/28/2021 6:40 PM By electronically signing this report, I, the attending physician, attestthat I have personally reviewed the images/data for the aboveexamination(s) and agree with the final edited report. Dictated by Kali Schafer on 07/28/2021 6:40 PM Signed by Abigail Abbott on 07/28/2021 7:30 PM us Luis NAJERA IMG CT PROCEDURES Final Result * US Abdomen Focused Region Other (RUQ ), Pancreas (RUQ ), Bile Ducts (RUQ ) (07/28/2021 5:24 PM EDT) Anatomical Region Laterality Modality Abdomen Ultrasound Impressions 07/28/2021 5:35 PM EDT Mildly increased echogenicity of the hepatic parenchyma, compatible with a degree of steatosis. Otherwise no acute findings. CRITICAL RESULT: ?? No. COMMUNICATION: Per this written report. Dictated by Dillon Pendleton on 07/28/2021 5:33 PM Signed by Dillon Pendleton on 07/28/2021 5:35 PM Narrative 07/28/2021 5:35 PM EDT Exam/Procedure: US ABDOMEN FOCUSED REGION ordered by LUIS VELASCO, [id number] CLINICAL INDICATION: Epigastric and LUQ pain, chronic pancreatitis worse pain TECHNIQUE: Multiplanar grayscale ultrasound of the right upper quadrant of the abdomen. COMPARISON: Correlation with CT A/P 21 June 2021. FINDINGS: Visualized Pancreas: Visualized head and neck unremarkable. Liver: Mildly increased echogenicity of the parenchyma, no focal lesions identified. Hepatofugal flow in visualized hepatic veins, hepatopedal flow portal vein. Gallbladder: Prior cholecystectomy. Bile Ducts: No intra-hepatic biliary ductal dilatation. No extra-hepatic biliary ductal dilatation. CBD 4 mm. Right Kidney: The right kidney measures 10.5 cm in length. Normal cortical echogenicity without focal mass, stone, or hydronephrosis. Fluid Survey: No ascites. Procedure Note Dillon Pendleton MD - 07/28/2021 Exam/Procedure: US ABDOMEN FOCUSED REGION ordered by LUIS VELASCO,[id number] CLINICAL INDICATION: Epigastric and LUQ pain, chronic pancreatitis worse pain TECHNIQUE: Multiplanar grayscale ultrasound of the right upper quadrant of theabdomen. COMPARISON: Correlation with CT A/P 21 June 2021. FINDINGS: Visualized Pancreas: Visualized head and neck unremarkable. Liver: Mildly increased echogenicity of the parenchyma, no focal lesionsidentified. Hepatofugal flow in visualized hepatic veins, hepatopedal flowportal vein. Gallbladder: Prior cholecystectomy. Bile Ducts: No intra-hepatic biliary ductal dilatation. No extra-hepaticbiliary ductal dilatation. CBD 4 mm. Right Kidney: The right kidney measures 10.5 cm in length. Normal corticalechogenicity without focal mass, stone, or hydronephrosis. Fluid Survey: No ascites. IMPRESSION: Mildly increased echogenicity of the hepatic parenchyma, compatible with adegree of steatosis. Otherwise no acute findings. CRITICAL RESULT: No. COMMUNICATION: Per this written report. Dictated by Dillon Pendleton on 07/28/2021 5:33 PM Signed by Dillon Pendleton on 07/28/2021 5:35 PM Luis NAJERA IMG US PROCEDURES Final Result * Urinalysis Microscopic Examination (07/28/2021 5:02 PM EDT) Urine Urine specimen obtained by clean catch procedure / Unknown Non-blood Collection / Unknown 07/28/2021 5:02 PM EDT 07/28/2021 5:04 PM EDT us Luis NAJERA LAB URINE ORDERABLES Final Res ult [facility] [address] [place] [id number] * , urine (07/28/2021 5:02 PM EDT) Urine Negative Negative 5:16 PM EDT [facility] Comment:False negative resul ts have been reported in some women after 7 weeks of gestation. Plasma hCG testing is recommended if clinically indicated. Urine Spec Grav 1.024 <=1.005 to >=1.030 07/28/2021 5:16 PM EDT [facility] Urine Urine specimen obtained by clean catch procedure / Unknown Non-blood Collection / Unknown 07/28/2021 5:02 PM EDT 07/28/2021 5:04 PM EDT us Luis NAJERA LAB URINE ORDERABLES Final Res ult [facility] [address] [place] [address] * (ABNORMAL) Urinalysis with reflex microscopic (07/28/2021 5:02 PM EDT) Color, Urine Yellow LAB URINALYSIS - AUTOMATED METHOD 07/28/2021 5:20 PM EDT [facility] Clarity, Urine Clear LAB URINALYSIS - AUTOMATED METHOD 07/28/2021 5:20 PM EDT [facility] Spec [place], Urine 1.026 <=1.005 to >=1.030 LAB URINALYSIS - AUTOMATED METHOD 07/28/2021 5:20 PM EDT [facility] pH, Urine 7.0 4.5 to 8 LAB URINALYSIS - AUTOMATED METHOD 07/28/2021 5:20 PM EDT [facility] Protein, Urine Negative Negative mg/dL LAB URINALYSIS - AUTOMATED METHOD 07/28/2021 5:20 PM EDT [facility] Glucose, Urine Negative Negative mg/dL LAB URINALYSIS - AUTOMATED METHOD 07/28/2021 5:20 PM EDT [facility] Ketones, Urine Trace(A) Negative mg/dL LAB URINALYSIS - AUTOMATED METHOD 07/28/2021 5:20 PM EDT [facility] Blood, Urine Negative Negative LAB URINALYSIS - AUTOMATED METHOD 07/28/2021 5:20 PM EDT [facility] Bilirubin, Urine Negative Negative LAB URINALYSIS - AUTOMATED METHOD 07/28/2021 5:20 PM EDT [facility] Urobilinogen, Urine 1.0 0.2 to 1.0 mg/dL LAB URINALYSIS - AUTOMATED METHOD 07/28/2021 5:20 PM EDT [facility] Leukocytes, Urine Trace(A) Negative LAB URINALYSIS - AUTOMATED METHOD 07/28/2021 5:20 PM EDT [facility] Nitrite, Urine Negative Negative LAB URINALYSIS - AUTOMATED METHOD 07/28/2021 5:20 PM EDT [facility] RBC, Urine <1 0 to 3 /HPF 07/28/2021 5:20 PM EDT [facility] Comment:This result was prev iously suppressed from the chart. WBC, Urine 0 - 5 0 to 5 /HPF 07/28/2021 5:20 PM EDT [facility] Comment:This result was prev iously suppressed from the chart. Squamous Epithelial Cells 0 - 5 0 to 5 /HPF 07/28/2021 5:20 PM EDT [facility] Comment:This result was prev iously suppressed from the chart. Hyaline Casts 0 - 8 0 to 8 /LPF 07/28/2021 5:20 PM EDT [facility] Comment:This result was prev iously suppressed from the chart. Bacteria, Urine Negative Negative 07/28/2021 5:20 PM EDT [facility] Comment:This result was prev iously suppressed from the chart. Urine Urine specimen obtained by clean catch procedure / Unknown Non-blood Collection / Unknown 07/28/2021 5:02 PM EDT 07/28/2021 5:04 PM EDT Narrative [facility] - 07/28/2021 5:20 PM EDT Performed by manual method us Luis NAJERA LAB URINE ORDERABLES Final Res ult [facility] [address] [place] [address] * Lactic acid, venous (07/28/2021 2:59 PM EDT) Lactate, Venous, Whole Blood 0.8 0.5 - 2.2 mmol/L LAB HEMATOLOGY METHOD 07/28/2021 3:16 PM EDT [facility] Blood Venous blood specimen / Unknown Venipuncture / Unknown 07/28/2021 2:59 PM EDT 07/28/2021 3:08 PM EDT us Luis NAJERA LAB BLOOD ORDERABLES Final Res ult Performing Organization Address City/[facility]/ZIP Co de Phone Number [facility] [address] [place] [address] * Lipase (07/28/2021 2:59 PM EDT) Lipase, Plasma 33 19 - 63 U/L 07/28/2021 3:50 PM EDT [facility] Blood Venous blood specimen / Unknown Venipuncture / Unknown 07/28/2021 2:59 PM EDT 07/28/2021 3:08 PM EDT Luis NAJERA LAB BLOOD ORDERABLES Final Res ult Performing Organization Address [facility] Co de Phone Number [facility] [address] [place] [address] * Magnesium (07/28/2021 2:59 PM EDT) Magnesium, Plasma 2.1 1.9 - 2.4 mg/dL 07/28/2021 3:50 PM EDT [facility] Blood Venous blood specimen / Unknown Venipuncture / Unknown 07/28/2021 2:59 PM EDT 07/28/2021 3:08 PM EDT Luis NAJERA LAB BLOOD ORDERABLES Final Res ult Performing Organization Address City/[facility]/ZIP Co de Phone Number [facility] [address] [place] [address] * (ABNORMAL) CMP (07/28/2021 2:59 PM EDT) Glucose, Plasma 85 74 - 99 mg/dL 07/28/2021 3:50 PM EDT [facility] BUN, Plasma 9 7 - 21 mg/dL 07/28/2021 3:50 PM EDT [facility] Creatinine, Plasma 0.56(L) 0.60 - 1.10 mg/dL 07/28/2021 3:50 PM EDT [facility] BUN/Creatinine Ratio 16 07/28/2021 3:50 PM EDT [facility] Sodium, Plasma 138 136 - 145 mmol/L 07/28/2021 3:50 PM EDT [facility] Potassium, Plasma 4.9(H) 3.7 - 4.8 mmol/L 07/28/2021 3:50 PM EDT [facility] Comment:Reference range for Serum potassium is 0.2 to 0.5 mmol/L higher than Plasma range. Chloride, Plasma 102 97 - 107 mmol/L 07/28/2021 3:50 PM EDT [facility] CO2, Plasma 23 22 - 29 mmol/L 07/28/2021 3:50 PM EDT [facility] Anion Gap 13 6 - 16 mmol/L 07/28/2021 3:50 PM EDT [facility] Total Calcium, Plasma 9.3 8.9 - 10.2 mg/dL 07/28/2021 3:50 PM EDT [facility] Total Protein 7.7 6.3 - 7.9 g/dL 07/28/2021 3:50 PM EDT [facility] Albumin, Plasma 4.3 3.5 - 5.2 g/dL 07/28/2021 3:50 PM EDT [facility] AST, Plasma 60(H) 11 - 32 U/L 07/28/2021 3:50 PM EDT [facility] ALT, Plasma 107(H) 8 - 33 U/L 07/28/2021 3:50 PM EDT [facility] Alkaline Phosphatase, Plasma 153(H) 35 - 104 U/L 07/28/2021 3:50 PM EDT [facility] Total Bilirubin, Plasma 0.2 0.2 - 1.1 mg/dL 07/28/2021 3:50 PM EDT [facility] eGFR >60 >60 mL/min/1.7 3m*2 07/28/2021 3:50 PM EDT [facility] Comment:eGFR = estimated GFR ; eGFR units = mL/min/1.73 sq meters Chronic Kidney Disease is considered if eGFR <60 mL/min/1.73 sq meters Kidney failure is considered if eGFR is <15 mL/min/1.73 sq meters. eGFR assumes steady state plasma creatinine concentration; not applicable if renal function is rapidly changing or patient is on dialysis. eGFR, if AFR/AM >60 >60 mL/min/1.7 3m*2 07/28/2021 3:50 PM EDT [facility] Comment:eGFR = estimated GFR ; eGFR units = mL/min/1.73 sq meters Chronic Kidney Disease is considered if eGFR <60 mL/min/1.73 sq meters Kidney failure is considered if eGFR is <15 mL/min/1.73 sq meters. eGFR assumes steady state plasma creatinine concentration; not applicable if renal function is rapidly changing or patient is on dialysis. Blood Venous blood specimen / Unknown Venipuncture / Unknown 07/28/2021 2:59 PM EDT 07/28/2021 3:08 PM EDT us Luis NAJERA LAB BLOOD ORDERABLES Final Res ult [facility] [address] [place] [address] * (ABNORMAL) CBC w/diff (07/28/2021 2:59 PM EDT) WBC Count 5.46 3.70 - 10.30 10*3/uL LAB HEMATOLOGY METHOD 07/28/2021 3:10 PM EDT [facility] RBC Count 4.31 3.90 - 5.20 10*6/uL LAB HEMATOLOGY METHOD 07/28/2021 3:10 PM EDT [facility] HGB 11.6 11.2 - 15.7 g/dL LAB HEMATOLOGY METHOD 07/28/2021 3:10 PM EDT [facility] HCT 36.4 34.0 - 45.0 % LAB HEMATOLOGY METHOD 07/28/2021 3:10 PM EDT [facility] Platelet Count 281 155 - 369 10*3/uL LAB HEMATOLOGY METHOD 07/28/2021 3:10 PM EDT [facility] MCV 85 79 - 98 fL LAB HEMATOLOGY METHOD 07/28/2021 3:10 PM EDT [facility] MCH 26.9 26.0 - 32.0 pg LAB HEMATOLOGY METHOD 07/28/2021 3:10 PM EDT [facility] MCHC 31.9 30.7 - 35.5 g/dL LAB HEMATOLOGY METHOD 07/28/2021 3:10 PM EDT [facility] RDW 14.7(H) 11.5 - 14.5 % LAB HEMATOLOGY METHOD 07/28/2021 3:10 PM EDT [facility] MPV 9.7 8.8 - 12.5 fL LAB HEMATOLOGY METHOD 07/28/2021 3:10 PM EDT [facility] nRBC 0.0 <=0.0 per 100 WBCs LAB HEMATOLOGY METHOD 07/28/2021 3:10 PM EDT [facility] Differential Type Automated LAB HEMATOLOGY METHOD 07/28/2021 3:10 PM EDT [facility] Neutrophils % 60.0 % LAB HEMATOLOGY METHOD 07/28/2021 3:10 PM EDT [facility] Lymphocytes % 33.0 % LAB HEMATOLOGY METHOD 07/28/2021 3:10 PM EDT [facility] Monocytes % 5.0 % LAB HEMATOLOGY METHOD 07/28/2021 3:10 PM EDT [facility] Eosinophils % 0.0 % LAB HEMATOLOGY METHOD 07/28/2021 3:10 PM EDT [facility] Basophils % 1.0 % LAB HEMATOLOGY METHOD 07/28/2021 3:10 PM EDT [facility] Immature Granulocytes % 1.0 % LAB HEMATOLOGY METHOD 07/28/2021 3:10 PM EDT [facility] Neutrophils Absolute 3.29 1.60 - 6.10 10*3/uL LAB HEMATOLOGY METHOD 07/28/2021 3:10 PM EDT [facility] Lymphocytes Absolute 1.80 1.20 - 3.90 10*3/uL LAB HEMATOLOGY METHOD 07/28/2021 3:10 PM EDT [facility] Monocytes Absolute 0.29(L) 0.30 - 0.90 10*3/uL LAB HEMATOLOGY METHOD 07/28/2021 3:10 PM EDT [facility] Eosinophils Absolute 0.01 0.00 - 0.50 10*3/uL LAB HEMATOLOGY METHOD 07/28/2021 3:10 PM EDT [facility] Basophils Absolute 0.03 0.00 - 0.10 10*3/uL LAB HEMATOLOGY METHOD 07/28/2021 3:10 PM EDT [facility] Immature Granulocytes Absolute 0.04 0.00 - 0.06 10*3/uL LAB HEMATOLOGY METHOD 07/28/2021 3:10 PM EDT [facility] Blood Venous blood specimen / Unknown Venipuncture / Unknown 07/28/2021 2:59 PM EDT 07/28/2021 3:08 PM EDT [facility] - 07/28/2021 3:10 PM EDT Therapeutic decision making should be based on absolute values, rather than percentages. us Luis NAJERA LAB BLOOD ORDERABLES Final Res ult [facility] [address] [place] [address] documented in this encounter Visit Diagnoses Diagnosis Abdominal pain, epigastric- Primary documented in this encounter Administered Medications Inactive Administered Medications - up to 3 most recent administrations Medication Order MAR Action Action Date Dose Rate Site acetaminophen (Tylenol) tablet 1,000 mg 1,000 mg, Oral, Once, 1 dose, On 07/28/21 at 1820, STAT Given 07/28/2021 6:35 PM EDT 1,000 mg gi cocktail oral solution 30 mL 30 mL, Oral, Once, 1 dose, On Thu07/28/21 at 1435, STAT Given 07/28/2021 3:06 PM EDT 30 mL iohexol (OMNIPaque) 300 MG/ML injection 100 mL 100 mL, Intravenous, Once in imaging, 1 dose, Starting on Thu07/28/21 at 1810, Until Thu07/28/21 at 1821, Routine, Imaging Protocol Orders Given 07/28/2021 6:21 PM EDT 90 mL lactated Ringer's infusion 1,000 mL 1,000 mL, Intravenous, Once, 1 dose, On 07/28/21 at 1435, STAT New Bag 07/28/2021 3:00 PM EDT 1,000 mL morphine PF 4 mg 4 mg, Intravenous, Once, 1 dose, On 07/28/21 at 1435, STAT Given 07/28/2021 3:03 PM EDT 4 mg morphine PF 4 mg 4 mg, Intravenous, Once, 1 dose, On 07/28/21 at 1645, STAT Given 07/28/2021 5:01 PM EDT 4 mg ondansetron (Zofran) injection 4 mg 4 mg, Intravenous, Once, 1 dose, On 07/28/21 at 1435, STAT Given 07/28/2021 3:01 PM EDT 4 mg oxyCODONE (Roxicodone) immediate release tablet 5 mg 5 mg, Oral, Once, 1 dose, On 07/28/21 at 1950, STAT Given 07/28/2021 7:58 PM EDT 5 mg documented in this encounter Active and Recently Administered Medications Times are shown in EDT. Scheduled Medication Order 07/26/2021 07/27/2021 07/28/2021 acetaminophen (Tylenol) tablet 1,000 mg (COMPLETED) 1,000 mg, Oral, Once, 1 dose, On 07/28/21 at 1820, STAT 1835 (Given - Provid er: Apollo Bahena) gi cocktail oral solution 30 mL (COMPLETED) 30 mL, Oral, Once, 1 dose, On 07/28/21 at 1435, STAT 1506 (Given - Provid er: Gela Joseph RN) iohexol (OMNIPaque) 300 MG/ML injection 100 mL (COMPLETED) 100 mL, Intravenous, Once in imaging, 1 dose, Starting on 07/28/21 at 1810, Until 07/28/21 at 1821, Routine, Imaging Protocol Orders 1821 (Given - Provid er: Karen Casanova) lactated Ringer's infusion 1,000 mL (COMPLETED) 1,000 mL, Intravenous, Once, 1 dose, On 07/28/21 at 1435, STAT 1500 (New Bag - Prov ider: Gela Joseph RN) morphine PF 4 mg (COMPLETED) 4 mg, Intravenous, Once, 1 dose, On 07/28/21 at 1435, STAT 1503 (Given - Provid er: Gela Joseph RN) morphine PF 4 mg (COMPLETED) 4 mg, Intravenous, Once, 1 dose, On 07/28/21 at 1645, STAT 1701 (Given - Provid er: Apollo Bahena) ondansetron (Zofran) injection 4 mg (COMPLETED) 4 mg, Intravenous, Once, 1 dose, On 07/28/21 at 1435, STAT 1501 (Given - Provid er: Gela Joseph RN) oxyCODONE (Roxicodone) immediate release tablet 5 mg (COMPLETED) 5 mg, Oral, Once, 1 dose, On 07/28/21 at 1950, STAT 1958 (Given - Provid er: Marybeth Lopez RN) documented in this encounter Additional Health Concerns Assessment Noted Time A fall risk assessment has been complete d for the patient 11/21/2020 2:30 PM EDT documented as of this encounter Care Teams Insulator Technician Relationship Specialty Start Date End Date Elmo Escobar MD PCP - General 10/18/20 01/05/23 documented as of this encounter
--- OUTSIDE RECORDS SUMMARY | 2024-02-03 15:24 | XMS_ITS | Encounter Summary ---
Author Organization [facility] Address [address] [place] [address] Care Team Providers Care Glazier Helper Name Role Phone Elmo Escobar MD Primary Care Provider [phone] Encounter Details Date Type Department Care Team (Latest Contact Info) Description 07/01/2021 Travel Social History Tobacco Use Types Packs/Day [...] suspected to have Coronavirus/COVID-19? No / Unsure 07/01/2021 11:57 AM EDT documented as of this encounter Plan of Treatment Not on file documented as of this encounter Visit Diagnoses Not on filedocumented in this encounter Additional Health Concerns Assessment Noted Time A fall risk assessment has been complete d for the patient 11/21/2020 2:30 PM EDT documented as of this encounter Care Teams Glazier Helper Relationship Specialty Start Date End Date Elmo Escobar MD PCP - General 10/18/20 01/05/23 documented as of this encounter
--- OUTSIDE RECORDS SUMMARY | 2024-02-03 15:24 | XMS_ITS | Encounter Summary ---
Author Organization [facility] Address [address] [place] [address] Care Team Providers Care Labor Relations Consultant Name Role Phone Elmo Escobar MD Primary Care Provider [phone] Encounter Details Date Type Department Care Team (Latest Contact Info) Description 07/21/2021 Travel Social History Tobacco Use Types Packs/Day [...] suspected to have Coronavirus/COVID-19? No / Unsure 07/21/2021 6:10 PM EDT documented as of this encounter Plan of Treatment Not on file documented as of this encounter Visit Diagnoses Not on filedocumented in this encounter Additional Health Concerns Assessment Noted Time A fall risk assessment has been complete d for the patient 11/21/2020 2:30 PM EDT documented as of this encounter Care Teams Labor Relations Consultant Relationship Specialty Start Date End Date Elmo Escobar MD PCP - General 10/18/20 01/05/23 documented as of this encounter
--- OUTSIDE RECORDS SUMMARY | 2024-02-03 15:24 | XMS_ITS | Encounter Summary ---
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 No / Unsure 06/22/2021 1:34 PM EDT documented as of this encounter Last Filed Vital Signs Vital Sign Reading Time Taken Comments Blood Pressure 126/85 06/22/2021 5:17 PM EDT Pulse 97 06/22/2021 5:17 PM EDT Temperature 36.8 ??C (98.2 ??F) 06/22/2021 5:17 PM ED T Respiratory Rate 18 06/22/2021 5:17 PM EDT Oxygen Saturation 98% 06/22/2021 5:17 PM EDT Inhaled Oxygen Concentration - - Weight 96.6 kg (212 lb 15.4 oz) 06/22/2021 1:35 PM EDT Height 165.1 cm (5' 5 ) 06/22/2021 1:35 PM EDT Body Mass Index 35.44 06/22/2021 1:35 PM EDT documented in this encounter Discharge Instructions * Discharge Instructions* Mireya Vo PA - 06/22/2021 5:12 PM EDT Stay well hydrated, continue home meds, follow up with PCP, GI, pain pump team. You require furtheroutpatient workup. Return to ER if develop medical emergency or any concern * Attachments The following attachments cannot be sent through Care Everywhere. * Abdominal Pain, Adult (Georgian) documented in this encounter Medications at Time of Discharge naloxone (Narcan) 4 mg/0.1 mL nasal spray Administer 1 spray (4 mg total) into affected nostril(s) if needed for opioid reversal. Call 911. Give 4 mg (1 spray) into one nostril. Repeat every 2-3 minutes as needed, alternating nostrils, until medical assistance arrives. 1 each 05/24/2021 3 senna-docusate sodium (Senokot-S) 8.6-50 MG tablet Take 1 tablet by mouth 1 (one) time each day. 30 tablet 05/27/2021 2 acetaminophen (Tylenol) 500 MG tablet Take 1,000 [...] if needed for severe pain. 2 pancrelipase, Psg-Qrsn-Vdry, (Creon) [id number] units capsule Take 2 capsules by mouth [...] Provider Notes - Mireya Vo PA - 06/22/2021 1:24 PM EDT HPI Chief Complaint Patient presents with ??? Abdominal Pain Lila Mcnally is a 35 y.o. female PMH pancreatitis, anxiety, fibromyalgia, choledocolithiasis, HTN, and GERD who presents to the Emergency Department with complaints of Abdominal Pain. Reports a few days of epigastric stabbing pain with associated nonbloody vomiting. Says has tried her home medswithout relief and hasn't been able to eat or drink and that her lipase was 700 earlier this year. Reports next GI appt is in August but has appt to discuss pain pump placement in 3 weeks. Denies fever, diarrhea, constipation, , dysuria, hematuria. No data recorded Patient History [...] are negative. Physical Exam ED Triage Vitals [06/22/21 1335] Temp Heart Rate Resp BP 36.7 ??C (98 ??F) 120 18 (!) 143/100 SpO2 Temp Source Heart Rate Source Patient Position 99 % Oral -- Sitting BP Location FiO2 (%) Right arm -- Physical Exam Constitutional: General: She is not in acute distress. Appearance: She is well-developed. She is not ill-appearing, toxic-appearing or diaphoretic. Comments: Appears agitated. Crying yet without any tear production. HENT: Head: Normocephalic and atraumatic. Mouth/Throat: Mouth: Mucous membranes are moist. Eyes: General: No scleral icterus. Extraocular Movements: Extraocular movements intact. Cardiovascular: Rate and Rhythm: Regular rhythm. Tachycardia present. Heart sounds: Normal heart sounds. Pulmonary: Effort: Pulmonary effort is normal. Breath sounds: Normal breath sounds. Abdominal: General: Abdomen is flat. Bowel sounds are normal. Palpations: Abdomen is soft. Tenderness: There is abdominal tenderness (exquisite ttp to epigastrium and LUQ with palpation yet when firm pressure is applied to stethescope over these same regions there is no indication of any tenderness). There is no guarding or rebound. Skin: General: Skin is warm and dry. Capillary Refill: Capillary refill takes less than 2 seconds. Coloration: Skin is not jaundiced. Neurological: General: No focal deficit present. Mental Status: She is alert and oriented to person, place, and time. Motor: No weakness. Psychiatric: Comments: Appears agitated. Weeping with no tear production. ED Course & MDM ED Course as of 06/22/211906 Sat Jun 22, 2021 1507 Lipase 23 1507 Lactic acid, venous Within normal limits. 1523 hCG qualitative Neg 1610 CMP(!) Transaminitis without hyperbilirubinemia, K 5.1, no JYOTSNA, no gap 1655 Urinalysis with reflex microscopic(!) No UTI, no volume depletion whatsoever Clinical Impressions as of 06/22/211906 Abdominal pain, epigastric Non-intractable vomiting with nausea, unspecified vomiting type Transaminitis ED Disposition: MDM Number of Diagnoses or Management Options Abdominal pain, epigastric Non-intractable vomiting with nausea, unspecified vomiting type Transaminitis Diagnosis management comments: In summary this is a 35 y.o. female who presented to the ED with complaints of Abdominal Pain. Concern for opioid withdrawal, chronic pain, PUD, GERD, recurrent pancreatitis, excess flatus, constipation, gastritis, endometriosis, SMA syndrome, choledocholithiasis. Perchart review, patient has had 5 CT abdomen/pelvis in 2021, none of which showed visual indication of pancreatitis (including CT performed 2 days ago), nor other reason for acute abdominal pain and the highest her lipase has been was 232 in Mar 2021, perhaps the 700 was at another facility. ReceivedIV bolus, IV zofran, famotidine, GI cocktail, and dilaudid. Workup showed slight transaminitis witho ut hyperbilirubinemia, normal lipase, no leukocytosis, slight hyperkalemia, and is markedly well hydrated on urine study. CTs do show breast mass findings, which patient says she is aware of and has medical care for. Labs and patient again discussed with Dr Franco and decision that no need for any further emergent imaging and can consult for admission if she doesn't feel improved. Patient reassessed, says continues to have significant pain despite mult rounds of dilaudid. As such, I spoke with medicine team about admission. However, as patient was discharged 26 days ago for an identical presentation with concerns of opioid dependence with poor insight into this use and had an addiction m edicine consult during this admission without markedly concerning lab findings today, medicine declined admission after in person conversation with medicine attending with lab trends review. When patient was informed, she specifically requested a large IM shot of dilaudid and expressed dissatisfaction. Passed PO. Patient was advised to continue home meds, keep pain pump appt, follow up with PCP, and follow up with GI for further outpatient workup. Amount and/or Complexity of Data Reviewed Clinical lab tests: ordered and reviewed Tests in the radiology section of CPT??: ordered and reviewed Decide to obtain previous medical records or to obtain history from someone other than the patient:yes Review and summarize past medical records: yes Discuss the patient with other providers: yes ED Prescriptions None Sign Off Checklist Clinical Impression: Complete ED Disposition: Complete DANIA Adams 06/22/211906 DANIA Adams 06/22/211907 Cosigned by Sammy Franco MD at 06/22/2021 7:12 PM EDT Associated attestation - Sammy Franco MD - 06/22/2021 7:12 PM EDT The patient was seen only by Advanced Practice Provider (AJAY), and care was reviewed with me. * ED Triage Notes - Dipika Ball RN - 06/22/2021 1:24 PM EDT Patient c/o abdominal pain and N/V since and was seen here Thursday but states pain is no better. Patient states abdominal pain feels like being stabbed repeatedly and wraps around to her flank. documented in this encounter Plan of Treatment Not on file documented as of this encounter Procedures Procedure Name Priority Date/Time Associated Diagnosis Comments COMPREHENSIVE METABOLIC PANEL, PLASMA STAT 06/22/2021 3:21 PM EDT LACTATE, VENOUS STAT 06/22/2021 2:30 PM EDT CBC WITH AUTO DIFFERENTIAL STAT 06/22/2021 2:30 PM EDT TEST QUALITATIVE PLASMA STAT 06/22/2021 2:30 PM EDT LIPASE, PLASMA STAT 06/22/2021 2:30 PM EDT BASIC METABOLIC PANEL, PLASMA STAT 06/22/2021 2:30 PM EDT URINALYSIS MICROSCOPIC FOR UA REFLEX STAT 06/22/2021 2:18 PM EDT OPIATES, LCMSMS, URINE STAT 2:18 PM EDT DRUG ABUSE SCREEN, URINE STAT 06/22/2021 2:18 PM EDT URINALYSIS WITH REFLEX MICROSCOPIC STAT 06/22/2021 2:18 PM EDT documented in this encounter Results * (ABNORMAL) CMP (06/22/2021 3:21 PM EDT) Glucose, Plasma 97 74 - 99 mg/dL 06/22/2021 3:52 PM EDT [facility] BUN, Plasma 8 7 - 21 mg/dL 06/22/2021 3:52 PM EDT [facility] Creatinine, Plasma 0.55(L) 0.60 - 1.10 mg/dL 06/22/2021 3:52 PM EDT [facility] BUN/Creatinine Ratio 15 06/22/2021 3:52 PM EDT [facility] Sodium, Plasma 134(L) 136 - 145 mmol/L 06/22/2021 3:52 PM EDT [facility] Potassium, Plasma 5.1(H) 3.7 - 4.8 mmol/L 06/22/2021 3:52 PM EDT [facility] Comment:Reference range for Serum potassium is 0.2 to 0.5 mmol/L higher than Plasma range. Chloride, Plasma 104 97 - 107 mmol/L 06/22/2021 3:52 PM EDT [facility] CO2, Plasma 24 22 - 29 mmol/L 06/22/2021 3:52 PM EDT [facility] Anion Gap 6 6 - 16 mmol/L 06/22/2021 3:52 PM EDT [facility] Total Calcium, Plasma 9.4 8.9 - 10.2 mg/dL 06/22/2021 3:52 PM EDT [facility] Total Protein 6.8 6.3 - 7.9 g/dL 06/22/2021 3:52 PM EDT [facility] Albumin, Plasma 3.8 3.5 - 5.2 g/dL 06/22/2021 3:52 PM EDT [facility] AST, Plasma 116(H) 11 - 32 U/L 06/22/2021 3:52 PM EDT [facility] ALT, Plasma 150(H) 8 - 33 U/L 06/22/2021 3:52 PM EDT [facility] Alkaline Phosphatase, Plasma 149(H) 35 - 104 U/L 06/22/2021 3:52 PM EDT [facility] Total Bilirubin, Plasma 0.3 0.2 - 1.1 mg/dL 06/22/2021 3:52 PM EDT [facility] eGFR >60 >60 mL/min/1.7 3m*2 06/22/2021 3:52 PM EDT [facility] Comment:eGFR = estimated GFR ; eGFR units = mL/min/1.73 sq meters Chronic Kidney Disease is considered if eGFR <60 mL/min/1.73 sq meters Kidney failure is considered if eGFR is <15 mL/min/1.73 sq meters. eGFR assumes steady state plasma creatinine concentration; not applicable if renal function is rapidly changing or patient is on dialysis. eGFR, if AFR/AM >60 >60 mL/min/1.7 3m*2 06/22/2021 3:52 PM EDT [facility] Comment:eGFR = estimated GFR ; eGFR units = mL/min/1.73 sq meters Chronic Kidney Disease is considered if eGFR <60 mL/min/1.73 sq meters Kidney failure is considered if eGFR is <15 mL/min/1.73 sq meters. eGFR assumes steady state plasma creatinine concentration; not applicable if renal function is rapidly changing or patient is on dialysis. Blood Venous blood specimen / Unknown Venipuncture / Unknown 06/22/2021 3:21 PM EDT 06/22/2021 3:29 PM EDT us Mireya NAJERA LAB BLOOD ORDERABLES Final Resul t Performing Organization Address City/[facility] Co de Phone Number [facility] [address] [place] [address] * hCG qualitative (06/22/2021 2:30 PM EDT) Test Negative Negative 06/22/2021 2:58 PM EDT [facility] Blood Venous blood specimen / Unknown Venipuncture / Unknown 06/22/2021 2:30 PM EDT 06/22/2021 2:36 PM EDT Narrative [facility] - 06/22/2021 2:58 PM EDT Reference Range: Males and non- females: Negative. us Mireya NAJERA LAB BLOOD ORDERABLES Final Resul t [facility] [address] [place] [address] * Lipase (06/22/2021 2:30 PM EDT) Lipase, Plasma 23 19 - 63 U/L 06/22/2021 2:58 PM EDT [facility] Blood Venous blood specimen / Unknown Venipuncture / Unknown 06/22/2021 2:30 PM EDT 06/22/2021 2:36 PM EDT us Mireya NAJERA LAB BLOOD ORDERABLES Final Resul t Performing Organization Address City/[facility]/ZIP Co de Phone Number [facility] [address] [place] [address] * Lactic acid, venous (06/22/2021 2:30 PM EDT) Lactate, Venous, Whole Blood 1.8 0.5 - 2.2 mmol/L LAB HEMATOLOGY METHOD 06/22/2021 2:39 PM EDT [facility] Blood Venous blood specimen / Unknown Venipuncture / Unknown 06/22/2021 2:30 PM EDT 06/22/2021 2:36 PM EDT us Mireya NAJERA LAB BLOOD ORDERABLES Final Resul t Performing Organization Address [facility] de Phone Number [facility] [address] [place] [address] * (ABNORMAL) BMP (06/22/2021 2:30 PM EDT) Glucose, Plasma 104(H) 74 - 99 mg/dL 06/22/2021 2:58 PM EDT [facility] BUN, Plasma 8 7 - 21 mg/dL 06/22/2021 2:58 PM EDT [facility] Creatinine, Plasma 0.59(L) 0.60 - 1.10 mg/dL 06/22/2021 2:58 PM EDT [facility] BUN/Creatinine Ratio 14 06/22/2021 2:58 PM EDT [facility] Sodium, Plasma 136 136 - 145 mmol/L 06/22/2021 2:58 PM EDT [facility] Potassium, Plasma 5.8(H) 3.7 - 4.8 mmol/L 06/22/2021 2:58 PM EDT [facility] Comment: Hemolyzed, result may be falsely increased. Reference range for Serum potassium is 0.2 to 0.5 mmol/L higher than Plasma range. Chloride, Plasma 99 97 - 107 mmol/L 06/22/2021 2:58 PM EDT [facility] CO2, Plasma 24 22 - 29 mmol/L 06/22/2021 2:58 PM EDT [facility] Anion Gap 13 6 - 16 mmol/L 06/22/2021 2:58 PM EDT [facility] Total Calcium, Plasma 9.9 8.9 - 10.2 mg/dL 06/22/2021 2:58 PM EDT [facility] eGFR >60 >60 mL/min/1.7 3m*2 06/22/2021 2:58 PM EDT [facility] Comment:eGFR = estimated GFR ; eGFR units = mL/min/1.73 sq meters Chronic Kidney Disease is considered if eGFR <60 mL/min/1.73 sq meters Kidney failure is considered if eGFR is <15 mL/min/1.73 sq meters. eGFR assumes steady state plasma creatinine concentration; not applicable if renal function is rapidly changing or patient is on dialysis. eGFR, if AFR/AM >60 >60 mL/min/1.7 3m*2 06/22/2021 2:58 PM EDT [facility] Comment:eGFR = estimated GFR ; [...] blood specimen / Unknown Venipuncture / Unknown 06/22/2021 2:30 PM EDT 06/22/2021 2:36 PM EDT us Mireya NAJERA LAB BLOOD ORDERABLES Final Resul t [facility] [address] [place] [address] * (ABNORMAL) CBC w/diff (06/22/2021 2:30 PM EDT) WBC Count 6.81 3.70 - 10.30 10*3/uL LAB HEMATOLOGY METHOD 06/22/2021 2:39 PM EDT [facility] RBC Count 4.76 3.90 - 5.20 10*6/uL LAB HEMATOLOGY METHOD 06/22/2021 2:39 PM EDT [facility] HGB 13.0 11.2 - 15.7 g/dL LAB HEMATOLOGY METHOD 06/22/2021 2:39 PM EDT [facility] HCT 40.3 34.0 - 45.0 % LAB HEMATOLOGY METHOD 06/22/2021 2:39 PM EDT [facility] Platelet Count 240 155 - 369 10*3/uL LAB HEMATOLOGY METHOD 06/22/2021 2:39 PM EDT [facility] MCV 85 79 - 98 fL LAB HEMATOLOGY METHOD 06/22/2021 2:39 PM EDT [facility] MCH 27.3 26.0 - 32.0 pg LAB HEMATOLOGY METHOD 06/22/2021 2:39 PM EDT [facility] MCHC 32.3 30.7 - 35.5 g/dL LAB HEMATOLOGY METHOD 06/22/2021 2:39 PM EDT [facility] RDW 14.3 11.5 - 14.5 % LAB HEMATOLOGY METHOD 06/22/2021 2:39 PM EDT [facility] MPV 9.6 8.8 - 12.5 fL LAB HEMATOLOGY METHOD 06/22/2021 2:39 PM EDT [facility] nRBC 0.0 <=0.0 per 100 WBCs LAB HEMATOLOGY METHOD 06/22/2021 2:39 PM EDT [facility] Differential Type Automated LAB HEMATOLOGY METHOD 06/22/2021 2:39 PM EDT [facility] Neutrophils % 70.0 % LAB HEMATOLOGY METHOD 06/22/2021 2:39 PM EDT [facility] Lymphocytes % 23.0 % LAB HEMATOLOGY METHOD 06/22/2021 2:39 PM EDT [facility] Monocytes % 5.0 % LAB HEMATOLOGY METHOD 06/22/2021 2:39 PM EDT [facility] Eosinophils % 0.0 % LAB HEMATOLOGY METHOD 06/22/2021 2:39 PM EDT [facility] Basophils % 1.0 % LAB HEMATOLOGY METHOD 06/22/2021 2:39 PM EDT [facility] Immature Granulocytes % 1.0 % LAB HEMATOLOGY METHOD 06/22/2021 2:39 PM EDT [facility] Neutrophils Absolute 4.80 1.60 - 6.10 10*3/uL LAB HEMATOLOGY METHOD 06/22/2021 2:39 PM EDT [facility] Lymphocytes Absolute 1.56 1.20 - 3.90 10*3/uL LAB HEMATOLOGY METHOD 06/22/2021 2:39 PM EDT [facility] Monocytes Absolute 0.31 0.30 - 0.90 10*3/uL LAB HEMATOLOGY METHOD 06/22/2021 2:39 PM EDT [facility] Eosinophils Absolute 0.00 0.00 - 0.50 10*3/uL LAB HEMATOLOGY METHOD 06/22/2021 2:39 PM EDT [facility] Basophils Absolute 0.05 0.00 - 0.10 10*3/uL LAB HEMATOLOGY METHOD 06/22/2021 2:39 PM EDT [facility] Immature Granulocytes Absolute 0.09(H) 0.00 - 0.06 10*3/uL LAB HEMATOLOGY METHOD 06/22/2021 2:39 PM EDT [facility] Blood Venous blood specimen / Unknown Venipuncture / Unknown 06/22/2021 2:30 PM EDT 06/22/2021 2:36 PM EDT Narrative [facility] - 06/22/2021 2:39 PM EDT Therapeutic decision making should be based on absolute values, rather than percentages. us Mireya NAJERA LAB BLOOD ORDERABLES Final Resul t [facility] [address] [place] [address] * (ABNORMAL) Opiates Confirm Urine (06/22/2021 2:18 PM EDT) Codeine <50 <50 ng/mL 06/25/2021 10:25 PM EDT [facility] Codeine Glucuronide <50 <50 ng/mL 06/25/2021 10:25 PM EDT [facility] Desmethyl Tramadol <50 <50 ng/mL 2021 10:25 PM EDT [facility] EDDP - Methadone Metabolite <50 <50 ng/mL 06/25/2021 10:25 PM EDT [facility] Hydrocodone <50 <50 ng/mL 06/25/2021 10:25 PM EDT [facility] Hydromorphone <50 <50 ng/mL 06/25/2021 10:25 PM EDT [facility] Hydromorphone Glucuronide <50 <50 ng/mL 06/25/2021 10:25 PM EDT [facility] Comment:Metabolite of Hydrom orphone Meperidine <50 <50 ng/mL 06/25/2021 10:25 PM EDT [facility] Methadone <50 <50 ng/mL 06/25/2021 10:25 PM EDT [facility] 6 Monoacetyl morphine <10 <10 ng/mL 06/25/2021 10:25 PM EDT [facility] Morphine <50 <50 ng/mL 06/25/2021 10:25 PM EDT [facility] Morphine Glucuronide <50 <50 ng/mL 06/25/2021 10:25 PM EDT [facility] Comment:Metabolite of Morphi ne Naloxone <50 <50 ng/mL 06/25/2021 10:25 PM EDT [facility] Naloxone Glucuronide <50 <50 ng/mL 06/25/2021 10:25 PM EDT [facility] Comment:Metabolite of Naloxo ne Normeperidine <50 <50 ng/mL 06/25/2021 10:25 PM EDT [facility] Oxycodone <50 <50 ng/mL 06/25/2021 10:25 PM EDT [facility] Oxymorphone <50 <50 ng/mL 06/25/2021 10:25 PM EDT [facility] Oxymorphone Glucuronide 368(H) <50 ng/mL 06/25/2021 10:25 PM EDT [facility] Comment:Metabolite of Oxymor phone Tramadol <50 <50 ng/mL 06/25/2021 10:25 PM EDT [facility] Urine Urine specimen obtained by clean catch procedure / Unknown Non-blood Collection / Unknown 06/22/2021 2:18 PM EDT 06/22/2021 2:36 PM EDT Narrative [facility] - 06/25/2021 10:25 PM EDT Drug analysis is confirmed by LC-MS/MS (LC Tandem Mass Spectrometry) on Urine specimens. ?? This test was developed and its performance characteristics determined by [facility]. It has not been cleared or approved by the FDA. The laboratory is regulated under CLIA as qualified to perform high-complexity testing. This test is used for clinical purposes. Testing is performed at the [facility] Special [facility] Laboratory. us Mireya NAJERA LAB URINE ORDERABLES Final Resul t Performing Organization Address City/[facility]/ZIP Co de Phone Number [facility] [address] [place] [address] * Urinalysis Microscopic Examination (06/22/2021 2:18 PM EDT) Urine Urine specimen obtained by clean catch procedure / Unknown Non-blood Collection / Unknown 06/22/2021 2:18 PM EDT 06/22/2021 2:36 PM EDT Mireya NAJERA LAB URINE ORDERABLES Final Resul t Performing Organization Address [facility] Co de Phone Number [facility] [address] [place] [address] * (ABNORMAL) Urinalysis with reflex microscopic (06/22/2021 2:18 PM EDT) Color, Urine Yellow LAB URINALYSIS - AUTOMATED METHOD 06/22/2021 4:06 PM EDT [facility] Clarity, Urine Clear LAB URINALYSIS - AUTOMATED METHOD 06/22/2021 4:06 PM EDT [facility] Spec [place], Urine 1.007 <=1.005 to >=1.030 LAB URINALYSIS - AUTOMATED METHOD 06/22/2021 4:06 PM EDT [facility] pH, Urine >=8.5(H) 4.5 to 8 LAB URINALYSIS - AUTOMATED METHOD 06/22/2021 4:06 PM EDT [facility] Protein, Urine Negative Negative mg/dL LAB URINALYSIS - AUTOMATED METHOD 06/22/2021 4:06 PM EDT [facility] Glucose, Urine Negative Negative mg/dL LAB URINALYSIS - AUTOMATED METHOD 06/22/2021 4:06 PM EDT [facility] Ketones, Urine Negative Negative mg/dL LAB URINALYSIS - AUTOMATED METHOD 06/22/2021 4:06 PM EDT [facility] Blood, Urine Large(A) Negative LAB URINALYSIS - AUTOMATED METHOD 06/22/2021 4:06 PM EDT [facility] Bilirubin, Urine Negative Negative LAB URINALYSIS - AUTOMATED METHOD 06/22/2021 4:06 PM EDT [facility] Urobilinogen, Urine 0.2 0.2 to 1.0 mg/dL LAB URINALYSIS - AUTOMATED METHOD 06/22/2021 4:06 PM EDT [facility] Leukocytes, Urine Negative Negative LAB URINALYSIS - AUTOMATED METHOD 06/22/2021 4:06 PM EDT [facility] Nitrite, Urine Negative Negative LAB URINALYSIS - AUTOMATED METHOD 06/22/2021 4:06 PM EDT [facility] RBC, Urine <1 0 to 3 /HPF 06/22/2021 4:06 PM EDT [facility] Comment: Confirmed This result was previously suppressed from the chart. WBC, Urine 0 - 5 0 to 5 /HPF 06/22/2021 4:06 PM EDT [facility] Comment:This result was prev iously suppressed from the chart. Squamous Epithelial Cells 0 - 5 0 to 5 /HPF 06/22/2021 4:06 PM EDT [facility] Comment:This result was prev iously suppressed from the chart. Hyaline Casts 0 - 8 0 to 8 /LPF 06/22/2021 4:06 PM EDT [facility] Comment:This result was prev iously suppressed from the chart. Bacteria, Urine Negative Negative 06/22/2021 4:06 PM EDT [facility] Comment:This result was prev iously suppressed from the chart. Urine Urine specimen obtained by clean catch procedure / Unknown Non-blood Collection / Unknown 06/22/2021 2:18 PM EDT 06/22/2021 2:36 PM EDT Narrative [facility] - 06/22/2021 4:06 PM EDT Performed by manual method us Mireya NAJERA LAB URINE ORDERABLES Final Resul t Performing Organization Address City/State/[facility] Co de Phone Number [facility] [address] [place] [phone] * Drug abuse screen (06/22/2021 2:18 PM EDT) Amphetamine Screen Urine Negative Negative 06/22/2021 3:04 PM EDT [facility] Benzodiazepines Screen Urine Negative Negative 06/22/2021 3:04 PM EDT [facility] Cannabinoid Screen Urine Negative Negative 06/22/2021 3:04 PM EDT [facility] Cocaine Screen Urine Negative Negative 06/22/2021 3:04 PM EDT [facility] Barbiturate Screen Urine Negative Negative 06/22/2021 3:04 PM EDT [facility] Opiate Screen Urine Negative Negative 06/22/2021 3:04 PM EDT [facility] Methadone Screen Urine Negative Negative 06/22/2021 3:04 PM EDT [facility] Buprenorphine Screen Urine Negative Negative 06/22/2021 3:04 PM EDT [facility] Fentanyl Screen Urine Negative Negative 06/22/2021 3:04 PM EDT [facility] Oxycodone Screen Urine Presumptive positive. Confirmation by LC-MS/MS to follow. Negative 06/22/2021 3:04 PM EDT [facility] Urine Urine specimen obtained by clean catch procedure / Unknown Non-blood Collection / Unknown 06/22/2021 2:18 PM EDT 06/22/2021 2:36 PM EDT us Mireya [facility] URINE ORDERABLES Final Resul t [facility] [address] [place] [id number] documented in this encounter Visit Diagnoses Diagnosis Abdominal pain, epigastric- Primary Non-intractable vomiting with nausea, unspecified vomiting type Transaminitis Nonspecific elevation of levels of transaminase or lactic acid dehydrogenase (LDH) documented in this encounter Administered Medications Inactive Administered Medications - up to 3 most recent administrations Medication Order MAR Action Action Date Dose Rate Site famotidine (Pepcid) injection 20 mg 20 mg, Intravenous, Once, 1 dose, On 06/22/21 at 1410, STAT Given 06/22/2021 2:40 PM EDT 20 mg gi cocktail oral solution 30 mL 30 mL, Oral, Once, 1 dose, On 06/22/21 at 1530, STAT Given 06/22/2021 3:33 PM EDT 30 mL HYDROcodone-acetaminophen ([place]) 5-325 MG per tablet 1 tablet 1 tablet, Oral, Once, 1 dose, On 06/22/21 at 1710, STAT Given 06/22/2021 5:17 PM EDT 1 tablet HYDROmorphone (Dilaudid) injection 0.25 mg 0.25 mg, Intravenous, Once, 1 dose, On 06/22/21 at 1410, STAT Given 06/22/2021 2:40 PM EDT 0.25 mg HYDROmorphone (Dilaudid) injection 1 mg 1 mg, Intravenous, Once, 1 dose, On 06/22/21 at 1530, STAT Given 06/22/2021 3:33 PM EDT 1 mg lactated Ringer's infusion 1,000 mL 1,000 mL, Intravenous, Once, 1 dose, On 06/22/21 at 1410, STAT New Bag 06/22/2021 2:39 PM EDT 1,000 mL ondansetron (Zofran) injection 4 mg 4 mg, Intravenous, Once, 1 dose, On 06/22/21 at 1410, STAT Given 06/22/2021 2:39 PM EDT 4 mg documented in this encounter Active and Recently Administered Medications Times are shown in EDT. Scheduled Medication Order 06/20/2021 06/21/2021 06/22/2021 famotidine (Pepcid) injection 20 mg (COMPLETED) 20 mg, Intravenous, Once, 1 dose, On 06/22/21 at 1410, STAT 1440 (Given - Provid er: Leta Saravia) gi cocktail oral solution 30 mL (COMPLETED) 30 mL, Oral, Once, 1 dose, On 06/22/21 at 1530, STAT 1533 (Given - Provid er: Norma Easley RN) HYDROcodone-acetaminophen ([place]) 5-325 MG per tablet 1 tablet (COMPLETED) 1 tablet, Oral, Once, 1 dose, On 06/22/21 at 1710, STAT 1717 (Given - Provid er: Norma Easley RN) HYDROmorphone (Dilaudid) injection 0.25 mg (COMPLETED) 0.25 mg, Intravenous, Once, 1 dose, On 06/22/21 at 1410, STAT 1440 (Given - Provid er: Leta Saravia) HYDROmorphone (Dilaudid) injection 1 mg (COMPLETED) 1 mg, Intravenous, Once, 1 dose, On 06/22/21 at 1530, STAT 1533 (Given - Provid er: Norma Easley RN) lactated Ringer's infusion 1,000 mL (COMPLETED) 1,000 mL, Intravenous, Once, 1 dose, On 06/22/21 at 1410, STAT 1439 (New Bag - Prov ider: Leta Saravia)1619 (Stopped - Provider: Leta Vincent) ondansetron (Zofran) injection 4 mg (COMPLETED) 4 mg, Intravenous, Once, 1 dose, On 06/22/21 at 1410, STAT 1439 (Given - Provid er: Leta Saravia) documented in this encounter Additional Health Concerns Assessment Noted Time A fall risk assessment has been complete d for the patient 11/21/2020 2:30 PM EDT documented as of this encounter Care Teams Zipper Sewing Machine Operator Relationship Specialty Start Date End Date Elmo Escobar MD PCP - General 10/18/20 01/05/23 documented as of this encounter
--- OUTSIDE RECORDS SUMMARY | 2024-02-03 15:24 | XMS_ITS | Encounter Summary ---
Author Organization Healthcare Address [address] [place] [address] Care Team Providers Care Motor Adjuster Name Role Phone Elmo Escobar MD Primary Care Provider [phone] Reason for Visit * Reason Comments Abdominal Pain Encounter Details Date Type Department Care Team (Late st Contact Info) Description 07/18/2021 7:57 PM EDT - 07/18/2021 9:31 PM EDT Emergency [facility] Emergency [facility] [address] [place] [address] Vomiting, intractability of vomiting not specified, presence of nausea not specified, unspecified vomiting type (Primary Dx) Discharge Disposition: Home or [...] suspected to have Coronavirus/COVID-19? No / Unsure 07/18/2021 7:57 PM EDT documented as of this encounter Last Filed Vital Signs Vital Sign Reading Time Taken Comments Blood Pressure 149/91 07/18/2021 9:00 PM EDT Pulse 104 07/18/2021 9:00 PM EDT Temperature 36.7 ??C (98 ??F) 07/18/2021 7:55 PM EDT Respiratory Rate 18 07/18/2021 9:00 PM EDT Oxygen Saturation 96% 07/18/2021 9:00 PM EDT Inhaled Oxygen Concentration - - Weight 102 kg (225 lb 12 oz) 07/18/2021 7:55 PM EDT Height 165.1 cm (5' 5 ) 07/18/2021 7:55 PM EDT Body Mass Index 37.57 07/18/2021 7:55 PM EDT documented in this encounter Discharge Instructions * Discharge Instructions* Lester Fitzpatrick PA - 07/18/2021 9:11 PM EDT Drink plenty of fluids as able Zofran as needed for nausea Alternate tylenol and ibuprofen for pain documented in this encounter Medications at Time [...] needed for severe pain. 12/21/19 22 pancrelipase, Xeo-Dllq-Vjrs, (Creon) [id number] units capsule Take 2 capsules by mouth [...] Provider Notes - Lester Fitzpatrick PA - 07/18/2021 7:47 PM EDT HPI Chief Complaint Patient presents with ??? Abdominal Pain Ms. Mcnally is a 35 yo F who presents to the ED with abdominal pain and vomitting. He is well known to our ER, was here earlier today for similar symptoms. Claims that she has a past medical history ofchronic pancreatitis, however has received multiple CT scans and had her lipase checked multiple times and not 1 any evidence of pancreatitis. Evaluated earlier and lipase was normal. The states noyola went home and tried to eat a bagel and drink some Gatorade and vomited 4 times. On presentationshe was the curled in the position and crying when entering room. No tears present. Are rate measured to be about 90 beats per second when feeling pulse. When I was about to leave the room, sheasked for pain medication. No data recorded Patient History Past Medical [...] chills and fever. Respiratory: Negative for chest tightness. Cardiovascular: Negative for chest pain. Gastrointestinal: Positive for abdominal pain, nausea and vomiting. All other systems reviewed and are negative. Physical Exam ED Triage Vitals [07/18/211954] Temp Heart Rate Resp BP 36.7 ??C (98 ??F) (!) 124 18 (!) 157/95 SpO2 Temp Source Heart Rate Source Patient [...] sounds are normal. There is no distension. Tenderness: There is abdominal tenderness in the left upper quadrant. Skin: General: Skin is warm and dry. Neurological: Mental Status: She is alert and oriented to person, place, and time. ED Course & MDM ED Course as of 07/18/212111 [facility] July 18, [id number] Lipase: 26 Clinical Impressions as of 07/18/212111 Vomiting, intractability of vomiting not specified, presence of nausea not specified, unspecified vomiting type ED Disposition: Discharge MDM Number of Diagnoses or Management Options Vomiting, intractability of vomiting not specified, presence of nausea not specified, unspecified vomiting type Diagnosis management comments: Lila Mcnally is a 35 yrs old female presents today for Patient presents with: Abdominal Pain . In order to fully explore differential these tests and treatments were ordered. Orders Placed This Encounter Lipase Medications ondansetron ODT (Zofran-ODT) disintegrating tablet 4 mg (4 mg Oral Given 07/18/212036) Ms. Mcnally is a 35 yo F who presents to the ED with abdominal pain, N/V. Ddx includes pancreatitis, gastritis, malingering. Asking for pain meds and a repeat lipase. Will repeat lipase, give zofran and tylenol. Requesting narcotics. Lipase found to be the X, within normal limits. Acute abdominal issues unlikely. States that she took 1 g of Tylenol and ibuprofen right before coming here, will not give Tylenol, will not give narcotics. States that she already has an appointment made to get a pain pump placed. Encouraged to keep that appointment. Return to her room for re-evaluation, was no longer crying, was sleeping comfortably in bed. Discharge home. Will send Rx for zofran. Amount and/or Complexity of Data Reviewed Decide to obtain previous medical records or to obtain history from someone other than the patient:yes Risk of Complications, Morbidity, and/or Mortality Presenting problems: low Diagnostic procedures: low Management options: low Patient Progress Patient progress: stable ED Prescriptions Medication Sig Dispense Start Date End Date Auth. Provider ondansetron ODT (Zofran-ODT) 4 MG disintegrating tablet Take 1 tablet (4 mg total) by mouth every 6(six) hours if needed for nausea. 40 tablet 07/18/2021 08/17/2021 DANIA Willard Sign Off Checklist Clinical Impression: Complete ED Disposition: Complete DANIA Willard 07/18/212111 DANIA Willard 07/18/212112 DANIA Willard 07/18/212125 Cosigned by Kayla Ramos MD at 07/18/2021 11:44 PM EDT Associated attestation - Kayla Ramos MD - 07/18/2021 11:44 PM EDT The patient was seen only by Advanced Practice Provider (AJAY). * ED Triage Notes - Dipika Ball RN - 07/18/2021 7:47 PM EDT Patient was seen earlier today, states her pain is back and she has vomited 4x with diarrhea. LUQ abdominal pain that radiates to back, states she has hx of pancreatitis. documented in this encounter Plan of Treatment Not on file documented as of this encounter Procedures Procedure Name Priority Date/Time Associated Diagnosis Comments LIPASE, PLASMA STAT 07/18/2021 8:31 PM EDT documented in this encounter Results * Lipase (07/18/2021 8:31 PM EDT) Lipase, Plasma 26 19 - 63 U/L 07/18/2021 9:00 PM EDT [facility] Blood Venous blood specimen / Unknown Venipuncture / Unknown 07/18/2021 8:31 PM EDT 07/18/2021 8:33 PM EDT us Lester NAJREA LAB BLOOD ORDERABLES Fi nal Result [facility] [address] [place] [address] documented in this encounter Visit Diagnoses Diagnosis Vomiting, intractability of vomiting not specified, presence of nausea not specified, unspecified vomiting type- Primary documented in this encounter Administered Medications Inactive Administered Medications - up to 3 most recent administrations Medication Order MAR Action Action Date Dose Rate Site ondansetron ODT (Zofran-ODT) disintegrating tablet 4 mg 4 mg, Oral, Once, 1 dose, On Annabel 07/18/21 at 2019, STAT Given 07/18/2021 8:37 PM EDT 4 mg documented in this encounter Active and Recently Administered Medications Times are shown in EDT. Scheduled Medication Order 07/16/2021 07/17/2021 07/18/2021 ondansetron ODT (Zofran-ODT) disintegrating tablet 4 mg (COMPLETED) 4 mg, Oral, Once, 1 dose, On Annabel 07/18/21 at 2019, STAT 2036 (Given - Provid er: Cat Rivas) documented in this encounter Additional Health Concerns Assessment Noted Time A fall risk assessment has been complete d for the patient 11/21/2020 2:30 PM EDT documented as of this encounter Care Teams Motor Adjuster Relationship Specialty Start Date End Date Elmo Escobar MD PCP - General 10/18/20 01/05/23 documented as of this encounter
--- OUTSIDE RECORDS SUMMARY | 2024-02-03 15:24 | XMS_ITS | Encounter Summary ---
Author Organization [facility] Address [address] [place] [address] Care Team Providers Care Manager Video Games Name Role Phone Elmo Escobar MD Primary Care Provider [phone] Encounter Details Date Type Department Care Team (Latest Contact Info) Description 06/21/2021 Travel Social History Tobacco Use Types Packs/Day [...] suspected to have Coronavirus/COVID-19? No / Unsure 06/20/2021 9:32 PM EDT documented as of this encounter Plan of Treatment Not on file documented as of this encounter Visit Diagnoses Not on filedocumented in this encounter Additional Health Concerns Assessment Noted Time A fall risk assessment has been complete d for the patient 11/21/2020 2:30 PM EDT documented as of this encounter Care Teams Manager Video Games Relationship Specialty Start Date End Date Elmo Escobar MD PCP - General 10/18/20 01/05/23 documented as of this encounter
--- OUTSIDE RECORDS SUMMARY | 2024-02-03 15:24 | XMS_ITS | Encounter Summary ---
Author Organization Healthcare Address [address] [place] [address] Care Team Providers Care Office Agent Name Role Phone Elmo Escobar MD Primary Care Provider [phone] Reason for Visit * Reason Comments Abdominal Pain Vomiting Encounter Details Date Type Department Care Team (Late st Contact Info) Description 07/21/2021 6:12 PM EDT - 07/21/2021 9:09 PM EDT Emergency [facility] Emergency Department [address] [place] [address] Michelle Perez MD [address] [place] [phone] Abdominal pain, epigastric (Primary Dx) Discharge [...] Sign Reading Time Taken Comments Blood Pressure 146/100 07/21/2021 8:50 PM EDT Pulse 98 07/21/2021 8:50 PM EDT Temperature 36.7 ??C (98.1 ??F) 07/21/2021 8:50 PM ED T Respiratory Rate 18 07/21/2021 6:08 PM EDT Oxygen Saturation 96% 07/21/2021 8:50 PM EDT Inhaled Oxygen Concentration - - Weight 102 kg (224 lb 3.3 oz) 07/21/2021 6:08 PM EDT Height 165.1 cm (5' 5 ) 07/21/2021 6:08 PM EDT Body Mass Index 37.31 07/21/2021 6:08 PM EDT documented in this encounter Discharge Instructions * Discharge Instructions* Christi Arroyo PA - 07/21/2021 8:51 PM EDT Please take all your medications as prescribed. Follow-up with your primary care doctor on Thursday as scheduled for re-evaluation of your pain or changes in your pain regimen. Please take tylenol as needed for your pain but do not take ibuprofen as you have a history of a gastric ulcer. Return to the ER if you have blood in your stool, urine, or worsening pain. documented in this encounter Medications at Time [...] needed for severe pain. 12/21/19 22 pancrelipase, [id number], (Creon) [id number] units capsule Take 2 capsules by mouth [...] Miscellaneous Notes * ED Provider Notes - Christi Arroyo PA - 07/21/2021 6:07 PM EDT HPI Chief Complaint Patient presents with ??? Abdominal Pain ??? Vomiting Lila Mcnally is a 35 y.o. female well known to this ER with PMH pancreatitis, fibromyalgia, obesity, anxiety, depression, GERD, HTN who presents to the Emergency Department with complaints of Abdominal Pain. Patient mentions she has had multiple pancreatitis flares within the last couple monthsand believes that she is currently having 1 again. Patient states she has been seen in multiple ERsand ???nobody has been able to control my pain and it is unbearable. Patient's mother is at bedside who states she found the patient sobbing and pain earlier today despite taking her scheduled oxycodone. When asked about her ulcer medications patient states she has not been taking those on a dailybasis. Patient states she was recently evaluated by [facility] and mentions they denied me a pain pump and I do not know what to do anymore. She does mention she has appointment scheduled with her primary care doctor for this coming Thursday to re-evaluate her pain regimen as well as a tom ointment with her pain clinic to review why she was not a candidate for the pain pump. She also mentions having nausea and vomiting. Patient denies fever, recent sick contacts, diarrhea, hematochezia, hematuria, dysuria. No data recorded Patient History Past Medical [...] are negative. Physical Exam ED Triage Vitals [07/21/21 1808] Temp Heart Rate Resp BP 36.4 ??C (97.5 ??F) 109 18 (!) 156/99 SpO2 Temp Source Heart Rate Source Patient Position 99 % Oral -- Sitting BP Location FiO2 (%) Right arm -- Physical Exam Vitals and nursing note reviewed. Constitutional: Appearance: Normal appearance. Comments: Patient crying, holding abdomen HENT: Head: Normocephalic and atraumatic. Cardiovascular: Rate and Rhythm: Normal rate and regular rhythm. Pulmonary: Effort: Pulmonary effort is normal. Breath sounds: Normal breath sounds. Abdominal: General: Bowel sounds are normal. There is no distension. Palpations: Abdomen is soft. Tenderness: There is abdominal tenderness in the epigastric area. Hernia: No hernia is present. Skin: General: Skin is warm and dry. Capillary Refill: Capillary refill takes less than 2 seconds. Neurological: General: No focal deficit present. Mental Status: She is alert and oriented to person, place, and time. Psychiatric: Mood and Affect: Mood is anxious. Behavior: Behavior normal. ED Course & MDM ED Course as of 07/21/212152 Sun July 21, 20211945 Lactate(!): 2.5 1950 CBC w/diff Unremarkable 1950 Urinalysis with reflex microscopic(!) Trace leuks, trace protein 2014 Lipase(!): 84 2015 Total Bilirubin, Plasma(!): <0.2 2015 Alkaline Phosphatase(!): 109 Clinical Impressions as of 07/21/212152 Abdominal pain, epigastric ED Disposition: MDM Number of Diagnoses or Management Options Abdominal pain, epigastric Diagnosis management comments: MDM: Patient was seen in ED by Christi Arrooy PA-C and Dr. Perez. Patient is a 35-year-old female with a history of chronic pancreatitis as well as a duodenal ulcer who presents the ER for evaluation of abdominal pain. Differential diagnosis includes but is not limitedto acute pancreatitis, diverticulitis, cystitis, colitis, duodenal ulcer. Evaluation includes CBC, CMP, lipase, lactate. On arrival, patient is afebrile, nontoxic appearing, hemodynamically stable. Physical exam revealed tenderness palpation in the epigastric region and a visibly anxious patient. Upon arrival to the ER patient was given a L of IV fluids, IV Zofran, GI cocktail, IM morphine. Patien t's urinalysis revealed trace leukocytes and 6-10 epithelial cells and patient was not expressing dysuria at this time. CMP was unremarkable, patient's lipase was 84 consistent with her baseline. Patient's initial lactate was 2.5 and patient was given a L of IV fluids. It is likely her lactate was elevated due to dehydration from not tolerating oral intake. Patient's history was reviewed and patient has had multiple CT scans within the last few months as well as ultrasounds with no acute changes, given patient's presentation further imaging was not warranted at this time. On re-evaluation of the patient she was stating she was still having pain and would like to have some dilaudid. Patient has extensive history of seeking narcotics an opioid abuse and was offered tylenol at this time. Patient stated tylenol and ibuprofen do not help I need dilaudid. Patient continued to refuse tylenol. Advised patient that based on her labs there was not evidence of an acute pancreatic flare at this time. Encouraged patient to take her home oxycodone as prescribed and follow-up with her primary care doctor as scheduled for this coming Thursday to discuss her pain regimen. Encouraged patient to take Tylenol as needed for pain relief at home. Patient and mother at bedside were agreeable to care plan and patient was stable prior to discharge. Return precautions stressed. Amount and/or Complexity of Data Reviewed Clinical lab tests: reviewed Decide to obtain previous medical records or to obtain history from someone other than the patient:yes ED Prescriptions None Sign Off Checklist Clinical Impression: Complete ED Disposition: Complete DANIA Mejia 07/21/21 9630 Cosigned by Michelle Perez MD at 07/21/2021 10:34 PM EDT Associated attestation - Michelle Perez MD - 07/21/2021 10:34 PM EDT I saw and evaluated the patient with the TOM resident. I discussed the case with the TOM resident and agree with the findings and plan as documented. Michelle Perez MD * ED Triage Notes - Dipika Ball RN - 07/21/2021 6:07 PM EDT Patient c/o abdominal pain radiating to flank with nausea since 1100 this AM. Hx of pancreatitis. Seen several times last week for the same. documented in this encounter Plan of Treatment Not on file documented as of this encounter Procedures Procedure Name Priority Date/Time Associated Diagnosis Comments URINALYSIS MICROSCOPIC FOR UA REFLEX STAT 07/21/2021 7:25 PM EDT URINALYSIS WITH REFLEX MICROSCOPIC STAT 07/21/2021 7:25 PM EDT URINE CULTURE STAT 07/21/2021 7:25 PM EDT LACTATE, VENOUS STAT 07/21/2021 7:24 PM EDT CBC WITH AUTO DIFFERENTIAL STAT 07/21/2021 7:24 PM EDT LIPASE, PLASMA STAT 07/21/2021 7:24 PM EDT COMPREHENSIVE METABOLIC PANEL, PLASMA STAT 07/21/2021 7:24 PM EDT documented in this encounter Results * Urinalysis Microscopic Examination (07/21/2021 7:25 PM EDT) Urine Urine specimen obtained by clean catch procedure / Unknown Non-blood Collection / Unknown 07/21/2021 7:25 PM EDT 07/21/2021 7:32 PM EDT Christi NAJERA LAB URINE ORDERABLES Final Res ult Performing Organization Address City/[facility]/ZIP Co de Phone Number [facility] [address] [place] [address] * (ABNORMAL) Urine culture- (clean catch) (07/21/2021 7:25 PM EDT) Culture <10,000 CFU/mL Mixed urogenital , fecal, or skin ángela present.(A ) 07/24/2021 4:12 PM EDT [facility] Urine Urine specimen obtained by clean catch procedure / Unknown Non-blood Collection / Unknown 07/21/2021 7:25 PM EDT 07/21/2021 7:31 PM EDT Christi NAJERA LAB MICROBIOLOGY - GENERAL ORD ERABLES Final Result Performing Organization Address City/[facility]/ZIP Co de Phone Number [facility] [address] [place] [address] * (ABNORMAL) Urinalysis with reflex microscopic (07/21/2021 7:25 PM EDT) Color, Urine Yellow LAB URINALYSIS - AUTOMATED METHOD 07/21/2021 8:05 PM EDT [facility] Clarity, Urine Clear LAB URINALYSIS - AUTOMATED METHOD 07/21/2021 8:05 PM EDT [facility] Spec [place], Urine 1.024 <=1.005 to >=1.030 LAB URINALYSIS - AUTOMATED METHOD 07/21/2021 8:05 PM EDT [facility] pH, Urine 8.0 4.5 to 8 LAB URINALYSIS - AUTOMATED METHOD 07/21/2021 8:05 PM EDT [facility] Protein, Urine Trace(A) Negative mg/dL LAB URINALYSIS - AUTOMATED METHOD 07/21/2021 8:05 PM EDT [facility] Glucose, Urine Negative Negative mg/dL LAB URINALYSIS - AUTOMATED METHOD 07/21/2021 8:05 PM EDT [facility] Ketones, Urine Trace(A) Negative mg/dL LAB URINALYSIS - AUTOMATED METHOD 07/21/2021 8:05 PM EDT [facility] Blood, Urine Trace(A) Negative LAB URINALYSIS - AUTOMATED METHOD 07/21/2021 8:05 PM EDT [facility] Bilirubin, Urine Negative Negative LAB URINALYSIS - AUTOMATED METHOD 07/21/2021 8:05 PM EDT [facility] Urobilinogen, Urine 1.0 0.2 to 1.0 mg/dL LAB URINALYSIS - AUTOMATED METHOD 07/21/2021 8:05 PM EDT [facility] Leukocytes, Urine Trace(A) Negative LAB URINALYSIS - AUTOMATED METHOD 07/21/2021 8:05 PM EDT [facility] Nitrite, Urine Negative Negative LAB URINALYSIS - AUTOMATED METHOD 07/21/2021 8:05 PM EDT [facility] RBC, Urine 2 0 to 3 /HPF 07/21/2021 8:05 PM EDT [facility] Comment:This result was prev iously suppressed from the chart. WBC, Urine 6 - 10(A) 0 to 5 /HPF 07/21/2021 8:05 PM EDT [facility] Comment:This result was prev iously suppressed from the chart. Squamous Epithelial Cells 6 - 10(A) 0 to 5 /HPF 07/21/2021 8:05 PM EDT [facility] Comment:This result was prev iously suppressed from the chart. Hyaline Casts 0 - 8 0 to 8 /LPF 07/21/2021 8:05 PM EDT [facility] Comment:This result was prev iously suppressed from the chart. Bacteria, Urine Negative Negative 07/21/2021 8:05 PM EDT [facility] Comment:This result was prev iously suppressed from the chart. Urine Urine specimen obtained by clean catch procedure / Unknown Non-blood Collection / Unknown 07/21/2021 7:25 PM EDT 07/21/2021 7:32 PM EDT [facility] - 07/21/2021 8:05 PM EDT Performed by manual method us Christi NAJERA LAB URINE ORDERABLES Final Res ult [facility] [address] [place] [id number] * (ABNORMAL) Lactic acid, venous (07/21/2021 7:24 PM EDT) Lactate, Venous, Whole Blood 2.5(H) 0.5 - 2.2 mmol/L LAB HEMATOLOGY METHOD 07/21/2021 7:38 PM EDT [facility] Blood Venous blood specimen / Unknown Venipuncture / Unknown 07/21/2021 7:24 PM EDT 07/21/2021 7:37 PM EDT Christi NAJERA LAB BLOOD ORDERABLES Final Res ult Performing Organization Address City/[facility]/ZIP Co de Phone Number [facility] [address] [place] [address] * (ABNORMAL) Lipase (07/21/2021 7:24 PM EDT) Lipase, Plasma 84(H) 19 - 63 U/L 07/21/2021 7:57 PM EDT [facility] Blood Venous blood specimen / Unknown Venipuncture / Unknown 07/21/2021 7:24 PM EDT 07/21/2021 7:31 PM EDT Christi NAJERA LAB BLOOD ORDERABLES Final Res ult Performing Organization Address City/[facility]/ZIP Co de Phone Number [facility] [address] [place] [address] * (ABNORMAL) CMP (07/21/2021 7:24 PM EDT) Glucose, Plasma 142(H) 74 - 99 mg/dL 07/21/2021 7:57 PM EDT [facility] BUN, Plasma 15 7 - 21 mg/dL 07/21/2021 7:57 PM EDT [facility] Creatinine, Plasma 0.70 0.60 - 1.10 mg/dL 07/21/2021 7:57 PM EDT [facility] BUN/Creatinine Ratio 21 07/21/2021 7:57 PM EDT [facility] Sodium, Plasma 140 136 - 145 mmol/L 07/21/2021 7:57 PM EDT [facility] Potassium, Plasma 4.1 3.7 - 4.8 mmol/L 07/21/2021 7:57 PM EDT [facility] Comment:Reference range for Serum potassium is 0.2 to 0.5 mmol/L higher than Plasma range. Chloride, Plasma 104 97 - 107 mmol/L 07/21/2021 7:57 PM EDT [facility] CO2, Plasma 21(L) 22 - 29 mmol/L 07/21/2021 7:57 PM EDT [facility] Anion Gap 15 6 - 16 mmol/L 07/21/2021 7:57 PM EDT [facility] Total Calcium, Plasma 9.0 8.9 - 10.2 mg/dL 07/21/2021 7:57 PM EDT [facility] Total Protein 6.2(L) 6.3 - 7.9 g/dL 07/21/2021 7:57 PM EDT [facility] Albumin, Plasma 3.7 3.5 - 5.2 g/dL 07/21/2021 7:57 PM EDT [facility] AST, Plasma 24 11 - 32 U/L 07/21/2021 7:57 PM EDT [facility] ALT, Plasma 26 8 - 33 U/L 07/21/2021 7:57 PM EDT [facility] Alkaline Phosphatase, Plasma 109(H) 35 - 104 U/L 07/21/2021 7:57 PM EDT [facility] Total Bilirubin, Plasma <0.2(L) 0.2 - 1.1 mg/dL 07/21/2021 7:57 PM EDT [facility] eGFR >60 >60 mL/min/1.7 3m*2 07/21/2021 7:57 PM EDT [facility] Comment:eGFR = estimated GFR ; eGFR units = mL/min/1.73 sq meters Chronic Kidney Disease is considered if eGFR <60 mL/min/1.73 sq meters Kidney failure is considered if eGFR is <15 mL/min/1.73 sq meters. eGFR assumes steady state plasma creatinine concentration; not applicable if renal function is rapidly changing or patient is on dialysis. eGFR, if AFR/AM >60 >60 mL/min/1.7 3m*2 07/21/2021 7:57 PM EDT [facility] Comment:eGFR = estimated GFR ; eGFR units = mL/min/1.73 sq meters Chronic Kidney Disease is considered if eGFR <60 mL/min/1.73 sq meters Kidney failure is considered if eGFR is <15 mL/min/1.73 sq meters. eGFR assumes steady state plasma creatinine concentration; not applicable if renal function is rapidly changing or patient is on dialysis. Blood Venous blood specimen / Unknown Venipuncture / Unknown 07/21/2021 7:24 PM EDT 07/21/2021 7:31 PM EDT Christi NAJERA LAB BLOOD ORDERABLES Final Res ult [facility] [address] [place] [address] * CBC w/diff (07/21/2021 7:24 PM EDT) WBC Count 6.60 3.70 - 10.30 10*3/uL LAB HEMATOLOGY METHOD 07/21/2021 7:34 PM EDT [facility] RBC Count 4.09 3.90 - 5.20 10*6/uL LAB HEMATOLOGY METHOD 07/21/2021 7:34 PM EDT [facility] HGB 11.2 11.2 - 15.7 g/dL LAB HEMATOLOGY METHOD 07/21/2021 7:34 PM EDT [facility] HCT 34.3 34.0 - 45.0 % LAB HEMATOLOGY METHOD 07/21/2021 7:34 PM EDT [facility] Platelet Count 201 155 - 369 10*3/uL LAB HEMATOLOGY METHOD 07/21/2021 7:34 PM EDT [facility] MCV 84 79 - 98 fL LAB HEMATOLOGY METHOD 07/21/2021 7:34 PM EDT [facility] MCH 27.4 26.0 - 32.0 pg LAB HEMATOLOGY METHOD 07/21/2021 7:34 PM EDT [facility] MCHC 32.7 30.7 - 35.5 g/dL LAB HEMATOLOGY METHOD 07/21/2021 7:34 PM EDT [facility] RDW 14.2 11.5 - 14.5 % LAB HEMATOLOGY METHOD 07/21/2021 7:34 PM EDT [facility] MPV 9.6 8.8 - 12.5 fL LAB HEMATOLOGY METHOD 07/21/2021 7:34 PM EDT [facility] nRBC 0.0 <=0.0 per 100 WBCs LAB HEMATOLOGY METHOD 07/21/2021 7:34 PM EDT [facility] Differential Type Automated LAB HEMATOLOGY METHOD 07/21/2021 7:34 PM EDT [facility] Neutrophils % 66.0 % LAB HEMATOLOGY METHOD 07/21/2021 7:34 PM EDT [facility] Lymphocytes % 27.0 % LAB HEMATOLOGY METHOD 07/21/2021 7:34 PM EDT [facility] Monocytes % 5.0 % LAB HEMATOLOGY METHOD 07/21/2021 7:34 PM EDT [facility] Eosinophils % 0.0 % LAB HEMATOLOGY METHOD 07/21/2021 7:34 PM EDT [facility] Basophils % 1.0 % LAB HEMATOLOGY METHOD 07/21/2021 7:34 PM EDT [facility] Immature Granulocytes % 1.0 % LAB HEMATOLOGY METHOD 07/21/2021 7:34 PM EDT [facility] Neutrophils Absolute 4.38 1.60 - 6.10 10*3/uL LAB HEMATOLOGY METHOD 07/21/2021 7:34 PM EDT [facility] Lymphocytes Absolute 1.79 1.20 - 3.90 10*3/uL LAB HEMATOLOGY METHOD 07/21/2021 7:34 PM EDT [facility] Monocytes Absolute 0.31 0.30 - 0.90 10*3/uL LAB HEMATOLOGY METHOD 07/21/2021 7:34 PM EDT [facility] Eosinophils Absolute 0.01 0.00 - 0.50 10*3/uL LAB HEMATOLOGY METHOD 07/21/2021 7:34 PM EDT [facility] Basophils Absolute 0.06 0.00 - 0.10 10*3/uL LAB HEMATOLOGY METHOD 07/21/2021 7:34 PM EDT [facility] Immature Granulocytes Absolute 0.05 0.00 - 0.06 10*3/uL LAB HEMATOLOGY METHOD 07/21/2021 7:34 PM EDT [facility] Blood Venous blood specimen / Unknown Venipuncture / Unknown 07/21/2021 7:24 PM EDT 07/21/2021 7:31 PM EDT [facility] - 07/21/2021 7:34 PM EDT Therapeutic decision making should be based on absolute values, rather than percentages. us Christi NAJERA LAB BLOOD ORDERABLES Final Res ult [facility] [address] [place] [address] documented in this encounter Visit Diagnoses Diagnosis Abdominal pain, epigastric- Primary documented in this encounter Administered Medications Inactive Administered Medications - up to 3 most recent administrations Medication Order MAR Action Action Date Dose Rate Site gi cocktail oral solution 30 mL 30 mL, Oral, Once, 1 dose, On 07/21/21 at 1905, STAT Given 07/21/2021 7:11 PM EDT 30 mL lactated Ringer's infusion 1,000 mL 1,000 mL, Intravenous, Once, 1 dose, On 07/21/21 at 1905, STAT New Bag 07/21/2021 7:28 PM EDT 1,000 mL morphine PF 8 mg 8 mg, Intramuscular, Once, 1 dose, On 07/21/21 at 190, STAT Given 07/21/2021 7:27 PM EDT 8 mg Other ondansetron (Zofran) injection 4 mg 4 mg, Intravenous, Once, 1 dose, On 07/21/21 at 190, STAT Given 07/21/2021 7:26 PM EDT 4 mg ondansetron (Zofran) injection 4 mg 4 mg, Intravenous, Once, 1 dose, On 07/21/21 at 2024, STAT Given 07/21/2021 8:33 PM EDT 4 mg documented in this encounter Active and Recently Administered Medications Times are shown in EDT. Scheduled Medication Order 07/19/2021 07/20/2021 07/21/2021 gi cocktail oral solution 30 mL (COMPLETED) 30 mL, Oral, Once, 1 dose, On 07/21/21 at 1905, STAT 191 (Given - Provid er: Radha Contreras) lactated Ringer's infusion 1,000 mL (COMPLETED) 1,000 mL, Intravenous, Once, 1 dose, On 07/21/21 at 1905, STAT 1927 (New Bag - Prov ider: Radha Contreras)2032 (Stopped - Provider: Radha Contreras) morphine PF 8 mg (COMPLETED) 8 mg, Intramuscular, Once, 1 dose, On 07/21/21 at 1905, STAT 1926 (Given - Provid er: Radha Contreras) ondansetron (Zofran) injection 4 mg (COMPLETED) 4 mg, Intravenous, Once, 1 dose, On 07/21/21 at 1905, STAT 1926 (Given - Provid er: Radha Contreras) ondansetron (Zofran) injection 4 mg (COMPLETED) 4 mg, Intravenous, Once, 1 dose, On 07/21/21 at 2024, STAT 2032 (Given - Provid er: Radha Contreras) documented in this encounter Additional Health Concerns Assessment Noted Time A fall risk assessment has been complete d for the patient 11/21/2020 2:30 PM EDT documented as of this encounter Care Teams Office Agent Relationship Specialty Start Date End Date Elmo Escobar MD PCP - General 10/18/20 01/05/23 documented as of this encounter
--- OUTSIDE RECORDS SUMMARY | 2024-02-03 15:24 | XMS_ITS | Encounter Summary ---
Author Organization [facility] Address [address] [place] [address] Care Team Providers Care Diver Tender Name Role Phone Elmo Escobar MD Primary Care Provider [phone] Encounter Details Date Type Department Care Team (Latest Contact Info) Description 06/22/2021 Travel Social History Tobacco Use Types Packs/Day [...] documented as of this encounter Care Teams Diver Tender Relationship Specialty Start Date End Date Elmo Escobar MD PCP - General 10/18/20 01/05/23 documented as of this encounter
--- OUTSIDE RECORDS SUMMARY | 2024-02-03 15:24 | XMS_ITS | Encounter Summary ---
Author Organization [facility] Address [address] [place] [address] Care Team Providers Care Desk Top Publisher Name Role Phone Elmo Escobar MD Primary Care Provider [phone] Encounter Details Date Type Department Care Team (Latest Contact Info) Description 07/08/2021 Travel Social History Tobacco Use Types Packs/Day [...] documented as of this encounter Care Teams Desk Top Publisher Relationship Specialty Start Date End Date Elmo Escobar MD PCP - General 10/18/20 01/05/23 documented as of this encounter
--- OUTSIDE RECORDS SUMMARY | 2024-02-03 15:24 | XMS_ITS | Encounter Summary ---
Author Organization Healthcare Address [address] [place] [address] Care Team Providers Care Ingot Stripper Name Role Phone Elmo Escobar MD Primary Care Provider [phone] Reason for Visit * Reason Comments Abdominal Pain Encounter Details Date Type Department Care Team (Late st Contact Info) Description 07/18/2021 12:54 PM EDT - 07/18/2021 3:04 PM EDT Emergency [facility] Emergency Department [address] [place] [address] Lisa Fuller, DO [address] [place] [address] Epigastric pain (Primary Dx) Discharge [...] to have Coronavirus/COVID-19? No / Unsure 07/18/2021 12:52 PM EDT documented as of this encounter Last Filed Vital Signs Vital Sign Reading Time Taken Comments Blood Pressure 161/91 07/18/2021 12:52 PM EDT Pulse 109 07/18/2021 12:52 PM EDT Temperature 36.9 ??C (98.4 ??F) 07/18/2021 12:52 PM E DT Respiratory Rate 20 07/18/2021 12:52 PM EDT Oxygen Saturation 97% 07/18/2021 12:52 PM EDT Inhaled Oxygen Concentration - - Weight 96.2 kg (212 lb) 07/18/2021 1:46 PM EDT Height 165.1 cm (5' 5 ) 07/18/2021 1:46 PM EDT Body Mass Index 35.28 07/18/2021 1:46 PM EDT documented in this encounter Discharge Instructions * Discharge Instructions* Boston Choudhary MD - 07/18/2021 2:31 PM EDT Please return to ED if your symptoms worsen, change in location, change in severity, new symptoms develop or if you become concerned for your health. documented in this encounter Medications at Time [...] if needed for severe pain. 2 pancrelipase, Ajg-[id number]-Ywlx, (Creon) [id number] units capsule Take 2 capsules by mouth [...] Provider Notes - Boston Choudhary MD - 07/18/2021 12:31 PM EDT HPI: Lila Mcnally is a 35 y.o. female presenting with a chief complaint of Abdominal Pain. Symptoms were sudden in onset starting shortly prior to arrival, constant, and worsening. Previous therapies:none. Associated symptoms: nausea. Past Medical History: Past medical history was reviewed. Past Medical History: Diagnosis Date ??? Anxiety ??? Arthritis ??? Depression ??? Fibromyalgia ??? GERD (gastroesophageal reflux disease) ??? Hypertension ??? Nicotine dependence ??? Obesity ??? Pancreatitis Social History: Social History was reviewed. Tobacco Use ??? Smoking status: Current Every Day Smoker Packs/day: 0.50 Years: 15.00 Pack years: 7.50 Types: Cigarettes ??? Smokeless tobacco: Never Used Vaping Use ??? Vaping Use: Never used Substance Use Topics ??? Alcohol use: Not Currently Comment: Alcoholic Drinks/day: Minimum alcohol consumption ??? Drug use: Not Currently Frequency: 4.0 times per week Comment: daily use Family History: Family History was reviewed. Family History Problem Relation Name Age of Onset ??? Hypertension Mother ??? No Known Problems Father ROS: Review of Systems Constitutional: Negative for chills and fever. Respiratory: Negative for chest tightness. Cardiovascular: Negative for chest pain. Gastrointestinal: Negative for nausea and vomiting. Genitourinary: Positive for decreased urine volume. Musculoskeletal: Negative for myalgias. Skin: Negative for color change. Allergic/Immunologic: Negative for immunocompromised state. Neurological: Negative for weakness. Psychiatric/Behavioral: Negative for confusion. ED Triage Vitals: ED Triage Vitals [07/18/21 1252] Temp Heart Rate Resp BP 36.9 ??C (98.4 ??F) 109 20 (!) 161/91 SpO2 Temp Source Heart Rate Source Patient Position 97 % Oral -- -- BP Location FiO2 (%) -- -- Physical Exam: Physical Exam Vitals and nursing note reviewed. Constitutional: General: She is in acute distress. HENT: Head: Normocephalic and atraumatic. Right Ear: [...] in the epigastric area. Musculoskeletal: General: No deformity. Normal range of motion. Cervical back: Normal range of motion and neck supple. Skin: General: Skin is warm and dry. Coloration: Skin is not jaundiced or pale. Neurological: General: No focal deficit present. Mental Status: She is alert and oriented to person, place, and time. MDM: Patient is a 35 y.o. female with history and exam per above presenting for evaluation of Abdominal Pain. Differential diagnosis and my clinical impression at this time is most consistent with historyof chronic pancreatitis, opoid dependence. My differential diagnosis also includes but is not limited to pancreatitis, gastritis, PUD, gastroparesis, cholecystitis, choledocholithiasis, biliary cholic, ascending cholangitis, hepatic abscess, pulmonary embolism, acute coronary syndrome, pneumonia. These are thought to be less likely at this time given patient's history, physical exam, and workup. The following orders were placed this encounter: Orders Placed This Encounter Procedures ??? CBC and Differential ??? Comprehensive Metabolic Panel, Plasma ??? Lipase, Plasma ??? hCG qualitative ??? Discharge Ambulatory referral to Pain Medicine Labs were independently interpreted by me. They are significant for lipase WNL. Patient was treated with Medications lactated Ringer's infusion 1,000 mL (0 mL Intravenous Stopped 07/18/21 1503) gi cocktail oral solution 30 mL (30 mL Oral Given 07/18/21 1336) HYDROmorphone (Dilaudid) injection 1 mg (1 mg Intravenous Given 07/18/21 1352) Upon repeat evaluation, patient in stable condition, amenable to discharge at this time. My clinical impression was discussed with the patient and all questions were answered. Specific return precautions were given, with verbalization of understanding and agreement of this plan. I placed ambulatory referral orders to the following services: Referrals Provided Procedures ??? Discharge Ambulatory referral to Pain Medicine Referral Priority: Routine Referral Type: Consultation Referral Reason: Specialty Services Required Requested Specialty: Pain Medicine Number of Visits Requested: 1 The following providers were documented as being assigned to this patient during this visit: Sincerely, 1. Lisa Fuller DO 2. Boston Choudhary MD Impression: Complete Disposition: Discharge Boston Choudhary MD Resident 07/18/21 0424 Cosigned by Lisa Fuller DO at 07/19/2021 11:47 PM EDT Associated attestation - Lisa Fuller DO - 07/19/2021 11:47 PM EDT I saw and evaluated the patient with the resident/fellow. I discussed the case with the resident/fellow and agree with the findings and plan as documented. * ED Triage Notes - Andrew Gonzalez, RN - 07/18/2021 12:31 PM EDT Pt with c/o left upper abd pain, vomiting since this morning. Pt states this is worse than normal pancreatitis pain. documented in this encounter Plan of Treatment Not on file documented as of this encounter Procedures Procedure Name Priority Date/Time Associated Diagnosis Comments CBC WITH AUTO DIFFERENTIAL STAT 07/18/2021 1:45 PM EDT TEST QUALITATIVE PLASMA STAT 07/18/2021 1:45 PM EDT LIPASE, PLASMA STAT 07/18/2021 1:45 PM EDT COMPREHENSIVE METABOLIC PANEL, PLASMA STAT 07/18/2021 1:45 PM EDT documented in this encounter Results * hCG qualitative (07/18/2021 1:45 PM EDT) Test Negative Negative 07/18/2021 2:18 PM EDT [facility] Blood Venous blood specimen / Unknown Venipuncture / Unknown 07/18/2021 1:45 PM EDT 07/18/2021 1:56 PM EDT Narrative [facility] - 07/18/2021 2:18 PM EDT Reference Range: Males and non- females: Negative. us Lisa Fuller DO LAB BLOOD ORDERABLES Final Re sult [facility] [address] [place] [address] * Lipase, Plasma (07/18/2021 1:45 PM EDT) Lipase, Plasma 24 19 - 63 U/L 07/18/2021 2:18 PM EDT [facility] Blood Venous blood specimen / Unknown Venipuncture / Unknown 07/18/2021 1:45 PM EDT 07/18/2021 1:56 PM EDT Lisa Fuller DO LAB BLOOD ORDERABLES Final Re sult [facility] [address] [place] [address] * (ABNORMAL) Comprehensive Metabolic Panel, Plasma (07/18/2021 1:45 PM EDT) Pathologist [facility] [place] Glucose, Plasma 85 74 - 99 mg/dL 07/18/2021 2:18 PM EDT [facility] BUN, Plasma 5(L) 7 - 21 mg/dL 07/18/2021 2:18 PM EDT [facility] Creatinine, Plasma 0.53(L) 0.60 - 1.10 mg/dL 07/18/2021 2:18 PM EDT [facility] BUN/Creatinine Ratio 9 07/18/2021 2:18 PM EDT [facility] Sodium, Plasma 139 136 - 145 mmol/L 07/18/2021 2:18 PM EDT [facility] Potassium, Plasma 4.0 3.7 - 4.8 mmol/L 07/18/2021 2:18 PM EDT [facility] Comment:Reference range for Serum potassium is 0.2 to 0.5 mmol/L higher than Plasma range. Chloride, Plasma 105 97 - 107 mmol/L 07/18/2021 2:18 PM EDT [facility] CO2, Plasma 23 22 - 29 mmol/L 07/18/2021 2:18 PM EDT [facility] Anion Gap 11 6 - 16 mmol/L 07/18/2021 2:18 PM EDT [facility] Total Calcium, Plasma 8.4(L) 8.9 - 10.2 mg/dL 07/18/2021 2:18 PM EDT [facility] Total Protein 6.2(L) 6.3 - 7.9 g/dL 07/18/2021 2:18 PM EDT [facility] Albumin, Plasma 3.8 3.5 - 5.2 g/dL 07/18/2021 2:18 PM EDT [facility] AST, Plasma 20 11 - 32 U/L 07/18/2021 2:18 PM EDT [facility] ALT, Plasma 18 8 - 33 U/L 07/18/2021 2:18 PM EDT [facility] Alkaline Phosphatase, Plasma 99 35 - 104 U/L 07/18/2021 2:18 PM EDT [facility] Total Bilirubin, Plasma <0.2(L) 0.2 - 1.1 mg/dL 07/18/2021 2:18 PM EDT [facility] eGFR >60 >60 mL/min/1.7 3m*2 07/18/2021 2:18 PM EDT [facility] Comment:eGFR = estimated GFR ; eGFR units = mL/min/1.73 sq meters Chronic Kidney Disease is considered if eGFR <60 mL/min/1.73 sq meters Kidney failure is considered if eGFR is <15 mL/min/1.73 sq meters. eGFR assumes steady state plasma creatinine concentration; not applicable if renal function is rapidly changing or patient is on dialysis. eGFR, if AFR/AM >60 >60 mL/min/1.7 3m*2 07/18/2021 2:18 PM EDT [facility] Comment:eGFR = estimated GFR ; [...] specimen / Unknown Venipuncture / Unknown 07/18/2021 1:45 PM EDT 07/18/2021 1:56 PM EDT us Lisa Fuller DO LAB BLOOD ORDERABLES Final Re sult [facility] [address] [place] [address] * (ABNORMAL) CBC and Differential (07/18/2021 1:45 PM EDT) [facility] Signature WBC Count 6.46 3.70 - 10.30 10*3/uL LAB HEMATOLOGY METHOD 07/18/2021 1:58 PM EDT [facility] RBC Count 3.98 3.90 - 5.20 10*6/uL LAB HEMATOLOGY METHOD 07/18/2021 1:58 PM EDT [facility] HGB 11.1(L) 11.2 - 15.7 g/dL LAB HEMATOLOGY METHOD 07/18/2021 1:58 PM EDT [facility] HCT 33.7(L) 34.0 - 45.0 % LAB HEMATOLOGY METHOD 07/18/2021 1:58 PM EDT [facility] Platelet Count 209 155 - 369 10*3/uL LAB HEMATOLOGY METHOD 07/18/2021 1:58 PM EDT [facility] MCV 85 79 - 98 fL LAB HEMATOLOGY METHOD 07/18/2021 1:58 PM EDT [facility] MCH 27.9 26.0 - 32.0 pg LAB HEMATOLOGY METHOD 07/18/2021 1:58 PM EDT [facility] MCHC 32.9 30.7 - 35.5 g/dL LAB HEMATOLOGY METHOD 07/18/2021 1:58 PM EDT [facility] RDW 14.2 11.5 - 14.5 % LAB HEMATOLOGY METHOD 07/18/2021 1:58 PM EDT [facility] MPV 9.4 8.8 - 12.5 fL LAB HEMATOLOGY METHOD 07/18/2021 1:58 PM EDT [facility] nRBC 0.0 <=0.0 per 100 WBCs LAB HEMATOLOGY METHOD 07/18/2021 1:58 PM EDT [facility] Differential Type Automated LAB HEMATOLOGY METHOD 07/18/2021 1:58 PM EDT [facility] Neutrophils % 54.0 % LAB HEMATOLOGY METHOD 07/18/2021 1:58 PM EDT [facility] Lymphocytes % 38.0 % LAB HEMATOLOGY METHOD 07/18/2021 1:58 PM EDT [facility] Monocytes % 6.0 % LAB HEMATOLOGY METHOD 07/18/2021 1:58 PM EDT [facility] Eosinophils % 0.0 % LAB HEMATOLOGY METHOD 07/18/2021 1:58 PM EDT [facility] Basophils % 1.0 % LAB HEMATOLOGY METHOD 07/18/2021 1:58 PM EDT [facility] Immature Granulocytes % 1.0 % LAB HEMATOLOGY METHOD 07/18/2021 1:58 PM EDT [facility] Neutrophils Absolute 3.53 1.60 - 6.10 10*3/uL LAB HEMATOLOGY METHOD 07/18/2021 1:58 PM EDT [facility] Lymphocytes Absolute 2.44 1.20 - 3.90 10*3/uL LAB HEMATOLOGY METHOD 07/18/2021 1:58 PM EDT [facility] Monocytes Absolute 0.38 0.30 - 0.90 10*3/uL LAB HEMATOLOGY METHOD 07/18/2021 1:58 PM EDT [facility] Eosinophils Absolute 0.00 0.00 - 0.50 10*3/uL LAB HEMATOLOGY METHOD 07/18/2021 1:58 PM EDT [facility] Basophils Absolute 0.07 0.00 - 0.10 10*3/uL LAB HEMATOLOGY METHOD 07/18/2021 1:58 PM EDT [facility] Immature Granulocytes Absolute 0.04 0.00 - 0.06 10*3/uL LAB HEMATOLOGY METHOD 07/18/2021 1:58 PM EDT [facility] Blood Venous blood specimen / Unknown Venipuncture / Unknown 07/18/2021 1:45 PM EDT 07/18/2021 1:56 PM EDT Narrative [facility] - 07/18/2021 1:58 PM EDT Therapeutic decision making should be based on absolute values, rather than percentages. Lisa Fuller DO LAB BLOOD ORDERABLES Final Re sult [facility] [address] [place] [address] documented in this encounter Visit Diagnoses Diagnosis Epigastric pain- Primary Abdominal pain, epigastric documented in this encounter Administered Medications Inactive Administered Medications - up to 3 most recent administrations Medication Order MAR Action Action Date Dose Rate Site gi cocktail oral solution 30 mL 30 mL, Oral, Once, 1 dose, On Thu07/18/21 at 1310, STAT Given 07/18/2021 1:36 PM EDT 30 mL HYDROmorphone (Dilaudid) injection 1 mg 1 mg, Intravenous, Once, 1 dose, On Thu07/18/21 at 1350, STAT Given 07/18/2021 1:52 PM EDT 1 mg lactated Ringer's infusion 1,000 mL 1,000 mL, Intravenous, Once, 1 dose, On Annabel 07/18/21 at 1310, STAT New Bag 07/18/2021 1:44 PM EDT 1,000 mL ondansetron (Zofran) injection 4 mg 4 mg, Intravenous, Every 6 hours PRN, Starting on Annabel 07/18/21 at 1306, Until Annabel 07/18/21 at 1704, STAT, nausea, vomiting Given 07/18/2021 1:44 PM EDT 4 mg documented in this encounter Active and Recently Administered Medications Times are shown in EDT. Scheduled Medication Order 07/16/2021 07/17/2021 07/18/2021 gi cocktail oral solution 30 mL (COMPLETED) 30 mL, Oral, Once, 1 dose, On Annabel 07/18/21 at 1310, STAT 1336 (Given - Provid er: Dipika Ball RN) HYDROmorphone (Dilaudid) injection 1 mg (COMPLETED) 1 mg, Intravenous, Once, 1 dose, On Annabel 07/18/21 at 1350, STAT 1352 (Given - Provid er: Dipika Ball RN) lactated Ringer's infusion 1,000 mL (COMPLETED) 1,000 mL, Intravenous, Once, 1 dose, On Annabel 07/18/21 at 1310, STAT 1344 (New Bag - Prov ider: Dipika Ball RN)1503 (Stopped - Provider: Dipika Ball RN) PRN Medication Order 07/16/2021 07/17/2021 07/18/2021 ondansetron (Zofran) injection 4 mg 4 mg, Intravenous, Every 6 hours PRN, Starting on Annabel 07/18/21 at 1306, Until Annabel 07/18/21 at 1704, STAT, nausea, vomiting 1344 (Given - Provid er: Dipika Ball RN) documented in this encounter Additional Health Concerns Assessment Noted Time A fall risk assessment has been complete d for the patient 11/21/2020 2:30 PM EDT documented as of this encounter Care Teams Ingot Stripper Relationship Specialty Start Date End Date Elmo Escobar MD PCP - General 10/18/20 01/05/23 documented as of this encounter
--- OUTSIDE RECORDS SUMMARY | 2024-02-03 15:24 | XMS_ITS | Encounter Summary ---
Author Organization Healthcare Address [address] [place] [address] Care Team Providers Care Bench Worker Name Role Phone Elmo Escobar MD Primary Care Provider [phone] Reason for Visit * Reason Comments Abdominal Pain Encounter Details Date Type Department Care Team (Late st Contact Info) Description 07/01/2021 10:57 AM EDT - 07/01/2021 2:10 PM EDT Emergency [facility] S Emergency Department [address] [place] [address] Discharge Disposition: Left WIthout Being Seen Social History Tobacco Use Types Packs/Day Years [...] Sign Reading Time Taken Comments Blood Pressure 146/103 07/01/2021 11:58 AM EDT Pulse 88 07/01/2021 11:58 AM EDT Temperature 36.8 ??C (98.2 ??F) 07/01/2021 11:58 AM E DT Respiratory Rate 18 07/01/2021 11:58 AM EDT Oxygen Saturation 98% 07/01/2021 11:58 AM EDT Inhaled Oxygen Concentration - - Weight 96 kg (211 lb 10.3 oz) 07/01/2021 11:58 A M EDT Height 167.6 cm (5' 6 ) 07/01/2021 11:58 AM EDT Body Mass Index 34.16 07/01/2021 11:58 AM EDT documented in this encounter Medications [...] if needed for severe pain. 2 pancrelipase, Gyw-Gaao-Afav, (Creon) [id number] units capsule Take 2 capsules by mouth [...] of this encounter Miscellaneous Notes * ED Triage Notes - Lina Lowry RN - 07/01/2021 10:57 AM EDT PT presents for evaluation of abdominal pain. Pt states that has chronic pancreatitis and pain started getting worse since yesterday. documented in this encounter Plan of Treatment Not on file documented as of this encounter Visit Diagnoses Not on filedocumented in this encounter Additional Health Concerns Assessment Noted Time A fall risk assessment has been complete d for the patient 11/21/2020 2:30 PM EDT documented as of this encounter Care Teams Bench Worker Relationship Specialty Start Date End Date Elmo Escobar MD PCP - General 10/18/20 01/05/23 documented as of this encounter
--- OUTSIDE RECORDS SUMMARY | 2024-02-03 15:24 | XMS_ITS | Encounter Summary ---
Author Organization [facility] Address [address] [place] [address] Care Team Providers Care Chick Room Supervisor Name Role Phone Elmo Escobar MD Primary Care Provider [phone] Encounter Details Date Type Department Care Team (Latest Contact Info) Description 07/18/2021 Travel Social History Tobacco Use Types Packs/Day [...] documented as of this encounter Care Teams Chick Room Supervisor Relationship Specialty Start Date End Date Elmo Escobar MD PCP - General 10/18/20 01/05/23 documented as of this encounter
--- OUTSIDE RECORDS SUMMARY | 2024-02-03 15:25 | XMS_ITS | Encounter Summary ---
Author Organization [facility] Address [address] [place] [address] Care Team Providers Care Nonprofit Director Name Role Phone Elmo Escobar MD Primary Care Provider [phone] Encounter Details Date Type Department Care Team (Latest Contact Info) Description 05/07/2021 Travel Social History Tobacco Use Types Packs/Day [...] Exposure Response Date Recorded In the last month, have you been in contact with someone who was confirmed or suspected to have Coronavirus / COVID-19? No / Unsure 05/07/2021 2:01 PM EDT documented as of this encounter Plan of Treatment Not on file documented as of this encounter Visit Diagnoses Not on filedocumented in this encounter Additional Health Concerns Assessment Noted Time A fall risk assessment has been complete d for the patient 11/21/2020 2:30 PM EDT documented as of this encounter Care Teams Nonprofit Director Relationship Specialty Start Date End Date Elmo Escobar MD PCP - General 10/18/20 01/05/23 documented as of this encounter
--- OUTSIDE RECORDS SUMMARY | 2024-02-03 15:25 | XMS_ITS | Encounter Summary ---
Author Organization [facility] Address [address] [place] [address] Care Team Providers Care Professor Of Economics Name Role Phone Elmo Escobar MD Primary Care Provider [phone] Encounter Details Date Type Department Care Team (Latest Contact Info) Description 06/08/2021 Travel Social History Tobacco Use Types Packs/Day [...] suspected to have Coronavirus/COVID-19? No / Unsure 06/08/2021 3:02 PM EDT documented as of this encounter Plan of Treatment Not on file documented as of this encounter Visit Diagnoses Not on filedocumented in this encounter Additional Health Concerns Assessment Noted Time A fall risk assessment has been complete d for the patient 11/21/2020 2:30 PM EDT documented as of this encounter Care Teams Professor Of Economics Relationship Specialty Start Date End Date Elmo Escobar MD PCP - General 10/18/20 01/05/23 documented as of this encounter
--- OUTSIDE RECORDS SUMMARY | 2024-02-03 15:25 | XMS_ITS | Encounter Summary ---
Author Organization Healthcare Address [address] [place] [address] Care Team Providers Care Fuel Handler Name Role Phone Elmo Escobar MD Primary Care Provider [phone] Reason for Visit * Reason Comments Abdominal Pain Encounter Details Date Type Department Care Team (Late st Contact Info) Description 06/20/2021 10:09 PM EDT - 06/21/2021 2:12 AM EDT Emergency [facility] Emergency Department [address] [place] [address] Agnes Cooley MD [address] [place] [address] Abdominal pain, unspecified abdominal location (Primary Dx) [...] Sign Reading Time Taken Comments Blood Pressure 123/81 06/21/2021 2:05 AM EDT Pulse 112 06/21/2021 2:05 AM EDT Temperature 36.7 ??C (98 ??F) 06/21/2021 2:05 AM EDT Respiratory Rate 16 06/21/2021 2:05 AM EDT Oxygen Saturation 95% 06/21/2021 2:05 AM EDT Inhaled Oxygen Concentration - - Weight - - Height - - Body Mass Index - - documented in this encounter Discharge Instructions * Discharge Instructions* Lara Benito APRN - 06/21/2021 1:44 AM EDT Follow-up with GI doctor for abdominal pain. Return to ED for any new concerning symptoms or worsening of symptoms. * Attachments The following attachments cannot be sent through Care Everywhere. * Abdominal Pain, Adult (Prydeinig) * Pain, Complementary Care for (Prydeinig) documented in this encounter Medications at Time [...] if needed for severe pain. 2 pancrelipase, [id number], (Creon) [id number] units capsule Take 2 capsules by mouth [...] Miscellaneous Notes * ED Provider Notes - Lara Benito APRN - 06/20/2021 9:15 PM EDT HPI Chief Complaint Patient presents with ??? Abdominal Pain Lila Mcnally is a 35 y.o. female with history of chronic pancreatitis, fibromyalgia, anxiety, depression, substance abuse. Patient presents today with 2 weeks of worsening abdominal pain typical of her chronic pancreatitis. Patient states that she has been to 2 other hospitals in the last 2 weeks but none of the hospitals have kept her for pain control. Patient states that her mother found her today lying in the bathroom floor vomiting bile. Patient pain located in epigastric region to leftupper quadrant. No data recorded Patient History Past Medical [...] are negative. Physical Exam ED Triage Vitals [06/20/21 2133] Temp Heart Rate Resp BP 36.8 ??C (98.3 ??F) (!) 124 16 (!) 151/95 SpO2 Temp Source Heart Rate Source Patient [...] upper quadrant. Musculoskeletal: Cervical back: Neck supple. Skin: General: Skin is warm and dry. Neurological: Mental Status: She is alert and oriented to person, place, and time. ED Course & MDM Clinical Impressions as of 06/21/21 0155 Abdominal pain, unspecified abdominal location ED Disposition: MDM Number of Diagnoses or Management Options Abdominal pain, unspecified abdominal location Diagnosis management comments: Lila Mcnally is a 35 yrs old female presents today for abdominalpain. Differentials include but are not limited to, chronic pancreatitis, ACS, IBS, bowel obstruction, gastritis, GERD, biliary colic.. In order to fully explore differential these tests and treatments were ordered. Orders Placed This Encounter XR Chest [address] Abdomen Pelvis w IV Contrast CBC w/diff CMP Lipase Magnesium Phosphorus PT-INR Urinalysis with reflex microscopic , urine Urinalysis Microscopic Examination EKG now - STAT (adult) Insert peripheral IV Medications sodium chloride 0.9 % infusion - 1,000mL (0 mL Intravenous Stopped 06/21/2158) HYDROmorphone (Dilaudid) injection 1 mg (1 mg Intravenous Given 06/20/21 2254) ondansetron (Zofran) injection 4 mg (4 mg Intravenous Given 06/20/21 2317) iohexol (OMNIPaque) 300 MG/ML injection 100 mL (90 mL Intravenous Given 06/21/21 0015) oxyCODONE (Roxicodone) immediate release tablet 5 mg (5 mg Oral Given 06/21/21 0059) Old records for this patient were reviewed and found to be pertinent. Records review indicates thatchronic pancreatitis and abdominal pain. EKG review was conducted and reveals that EKG today was similar to previous, and therefore patient was not further worked up from a cardiologic standpoint. Lab results were reviewed independently and can be interpreted as non actionable. Lab Results Labs Reviewed COMPREHENSIVE METABOLIC PANEL, PLASMA - Abnormal Glucose, Plasma 124 (*) BUN, Plasma 7 Creatinine, Plasma 0.56 (*) BUN/Creatinine Ratio 13 Sodium, Plasma 136 Potassium, Plasma 4.4 Chloride, Plasma 98 CO2, Plasma 28 Anion Gap 10 Total Calcium, Plasma 9.0 Total Protein 6.6 Albumin, Plasma 3.9 AST, Plasma 60 (*) ALT, Plasma 85 (*) Alkaline Phosphatase, Plasma 127 (*) Total Bilirubin, Plasma <0.2 (*) eGFR >60 eGFR, if AFR/AM >60 PROTHROMBIN TIME(PT) / INR - Abnormal Prothrombin Time 11.9 (*) INR 0.9 Narrative: OPTIMAL INR RANGES FOR PATIENT ON ORAL ANTICOAGULANT THERAPY Prevention of venous thromboembolism INR 2.0 to 3.0 In patients with heart disease: Atrial fibrillation INR 2.0 to 3.0 Valvularheart disease INR 2.0 to 3.0 Tissue heart valves INR 2.0 to 3.0 Mechanical prosthetic valves INR 2.5 to 3.5 Prevention of recurrent NH INR 2.5 to 3.5 URINALYSIS WITH REFLEX MICROSCOPIC - Abnormal Color, Urine Yellow Clarity, Urine Clear Spec [place], Urine 1.016 pH, Urine >=8.5 (*) Protein, Urine Trace (*) Glucose, Urine Negative Ketones, Urine Negative Blood, Urine Large (*) Bilirubin, Urine Negative Urobilinogen, Urine 0.2 Leukocytes, Urine Negative Nitrite, Urine Negative RBC, Urine 31 - 50 (*) WBC, Urine 0 - 5 Squamous Epithelial Cells 0 - 5 Hyaline Casts 0 - 8 Bacteria, Urine Negative Narrative: Performed by manual method LIPASE, PLASMA - Normal Lipase, Plasma 37 MAGNESIUM, PLASMA - Normal Magnesium, Plasma 2.0 PHOSPHORUS, PLASMA - Normal Phosphorus, Plasma 3.7 CBC WITH AUTO DIFFERENTIAL WBC Count 7.27 RBC Count 4.09 HGB 11.5 HCT 34.8 Platelet Count 197 MCV 85 MCH 28.1 MCHC 33.0 RDW 14.5 MPV 9.7 nRBC 0.0 Differential Type Automated Neutrophils % 67.0 Lymphocytes % 25.0 Monocytes % 6.0 Eosinophils % 0.0 Basophils % 1.0 Immature Granulocytes % 1.0 Neutrophils Absolute 4.93 Lymphocytes Absolute 1.85 Monocytes Absolute 0.41 Eosinophils Absolute 0.00 Basophils Absolute 0.04 Immature Granulocytes Absolute 0.04 Narrative: Therapeutic decision making should be based on absolute values, rather than percentages. , URINE Urine Negative Urine Spec Grav 1.014 URINALYSIS MICROSCOPIC FOR UA REFLEX Imaging Results CT Abdomen Pelvis w IV Contrast Final Result 1. Stable nodule compared to 2017 in the medial inferior right breast 2. Bilateral peribronchial nodules, likely sequela of aspiration. CRITICAL RESULT: No. COMMUNICATION: Per this written report. Approved by James Cheung on 06/21/2021 1:01 AM By electronically signing this report, I, the attending physician, attest that I have personally reviewed the images/data for the above examination(s) and agree with the final edited report. Dictated by James Cheung on 06/21/2021 1:01 AM Signed by Ishmael Hawkins on 06/21/2021 1:14 AM XR Chest 1 View Final Result Unremarkable chest examination. CRITICAL RESULT: No. COMMUNICATION: Per this written report. Dictated by Ishmael Hawkins on 06/20/2021 10:44 PM Signed by Ishmael Hawkins on 06/20/2021 10:45 PM Imaging results were reviewed independently as well as with the radiology interpretation. Imaging results were non actionable Patient reevaluated after treatments provided and condition improved with medications given. Based on work up today patient did not require consult with any service. Ultimately, this patient was Discharged Home (Discharge) The encounter diagnosis was Abdominal pain, unspecified abdominal location. . Patient was counseled on the diagnoses. Patient is requested to follow up with GI doctor for chronic pancreatitis and abdominal pain. Instructions on follow up as well as precautions to return to the ER provided verbally by the EDAPP, as well as written in patients discharge education packet. Amount and/or Complexity of Data Reviewed Clinical lab tests: reviewed Tests in the radiology section of CPT??: reviewed Tests in the medicine section of CPT??: reviewed ED Prescriptions None Sign Off Checklist Clinical Impression: Complete ED Disposition: Complete Lara Benito APRN 06/21/21199 Lara Benito APRN 06/21/21205 Cosigned by Agnes Cooley MD at 06/26/2021 4:41 AM EDT Associated attestation - Agnes Cooley MD - 06/26/2021 4:41 AM EDT I attest to being involved in providing substantive time in patient care. * ED Triage Notes - Afia Jernigan RN - 06/20/2021 9:15 PM EDT Patient states her mother found her on the floor of the bathroom throwing up bile. Patient has a history of pancreatitis. Patient is in the middle of getting a pain pump. Patient states the pain is so bad she would rather . documented in this encounter Plan of Treatment Not on file documented as of this encounter Procedures Procedure Name Priority Date/Time Associated Diagnosis Comments CT ABDOMEN PELVIS W IV CONTRAST STAT 06/21/2021 12:16 AM EDT URINALYSIS MICROSCOPIC FOR UA REFLEX STAT 06/20/2021 10:54 PM EDT , URINE STAT 06/20/2021 10:5 4 PM EDT URINALYSIS WITH REFLEX MICROSCOPIC STAT 06/20/2021 10:54 PM EDT PROTHROMBIN TIME(PT) / INR STAT 06/20/2021 10:53 PM EDT CBC WITH AUTO DIFFERENTIAL STAT 06/20/2021 10:53 PM EDT PHOSPHORUS, PLASMA STAT 06/20/2021 10 :53 PM EDT MAGNESIUM, PLASMA STAT 06/20/2021 10: 53 PM EDT LIPASE, PLASMA STAT 06/20/2021 10:53 PM EDT COMPREHENSIVE METABOLIC PANEL, PLASMA STAT 06/20/2021 10:53 PM EDT XR CHEST 1 VIEW STAT 06/20/2021 10:37 PM EDT ECG ADULT STAT 06/20/2021 10:26 PM EDT documented in this encounter Results * CT Abdomen Pelvis w IV Contrast (06/21/2021 12:16 AM EDT) Anatomical Region Laterality Modality Abdomen, Pelvis Computed Tomogra phy Impressions 06/21/2021 1:14 AM EDT 1. Stable nodule compared to 2017 in the medial inferior right breast 2. Bilateral peribronchial nodules, likely sequela of aspiration. CRITICAL RESULT: ?? No. COMMUNICATION: Per this written report. Approved by James Cheung on 06/21/2021 1:01 AM By electronically signing this report, I, the attending physician, attest that I have personally reviewed the images/data for the above examination(s) and agree with the final edited report. Dictated by James Cheung on 06/21/2021 1:01 AM Signed by Ishmael Hawkins on 06/21/2021 1:14 AM Narrative 06/21/2021 1:14 AM EDT Exam/Procedure: CT ABDOMEN PELVIS W IV CONTRAST ordered by LARA BENITO, [id number] CLINICAL INDICATION: Abdominal pain, acute, nonlocalized TECHNIQUE: [...] facilitate diagnostic accuracy. Total DLP (Dose-Length Product): 1136.56 mGy.cm. Please note: The reported value represents the total of one or more individual components during the CT acquisition on this date and at this time, and as such, the same value may appear in more than one CT report depending on the interpreting/reporting physicians. COMPARISON: CT abdomen and pelvis May 22, 2021 FINDINGS: Lung Bases: Peribronchial nodules in the bilateral lower lobes. Stable size of a 2 cm mass in the right medial breast. Liver/Gallbladder/Biliary system: The liver demonstrates homogeneous enhancement. Cholecystectomy. No intra- or extra-hepatic biliary ductal dilatation. [...] No free fluid in the pelvis. Pelvis: Retroverted uterus. No ovarian mass. Right ovarian cyst or follicle at 3.7 x 2.5 cm Body Wall: Within the inferior medial aspect of the right breast is a nodule which appears similar compared to 2017 exam measuring approximately 2 cm in diameter. Probably nonaggressive lesion for example a fibroadenoma? Small nodule subcutaneous fat image 58 series 2 could. Injection site Bones: No acute fracture. Procedure Note Ishmael Hawkins MD - 06/21/2021 Exam/Procedure: CT ABDOMEN PELVIS W IV CONTRAST ordered by LARA FORDE, [id number] CLINICAL INDICATION: Abdominal pain, acute, nonlocalized TECHNIQUE: Imaging of the abdomen and pelvis was performed, from lung bases throughpubic symphysis, using spiral technique, following administration of IVcontrast, Omnipaque 300, 100 mL. Delayed (excretory phase) images wereperformed through the kidneys. Reformatted images in the coronal andsagittal planes were generated from the axial data set to facilitatediagnostic accuracy. Total DLP (Dose-Length Product): 1136.56 mGy.cm. Please note: The reportedvalue represents the total of one or more individual components during theCT acquisition on this date and at this time, and as such, the same valuemay appear in more than one CT report depending on theinterpreting/reporting physicians. COMPARISON: CT abdomen and pelvis May 22, 2021 FINDINGS: Lung Bases: Peribronchial nodules in the bilateral lower lobes. Stablesize of a 2 cm mass in the right medial breast. Liver/Gallbladder/Biliary system: The liver demonstrates homogeneousenhancement. Cholecystectomy. No intra- or extra-hepatic biliary ductaldilatation. Spleen: The spleen enhances homogeneously. Pancreas: The [...] No free fluid in the pelvis. Pelvis: Retroverted uterus. No ovarian mass. Right ovarian cyst orfollicle at 3.7 x 2.5 cm Body Wall: Within the inferior medial aspect of the right breast is anodule which appears similar compared to 2017 exam measuring approximately2 cm in diameter. Probably nonaggressive lesion for example afibroadenoma? Small nodule subcutaneous fat image 58 series 2 could.Injection site Bones: No acute fracture. IMPRESSION: 1. Stable nodule compared to 2017 in the medial inferior right breast 2. Bilateral peribronchial nodules, likely sequela of aspiration. CRITICAL RESULT: No. COMMUNICATION: Per this written report. Approved by James Cheung on 06/21/2021 1:01 AM By electronically signing this report, I, the attending physician, attestthat I have personally reviewed the images/data for the aboveexamination(s) and agree with the final edited report. Dictated by James Cheung on 06/21/2021 1:01 AM Signed by Ishmael Hawkins on 06/21/2021 1:14 AM us Lara Benito APRN IMG CT PROCEDURES Final Re sult * Urinalysis Microscopic Examination (06/20/2021 10:54 PM EDT) Urine Urine specimen obtained by clean catch procedure / Unknown Non-blood Collection / Unknown 06/20/2021 10:54 PM EDT 06/20/2021 10:59 PM EDT Lara Benito APRN LAB URINE ORDERABLES Final Result Performing Organization Address City/[facility] de Phone Number [facility] [address] [place] [address] * , urine (06/20/2021 10:54 PM EDT) Urine Negative Negative 11:08 PM EDT [facility] Comment:False negative resul ts have been reported in some women after 7 weeks of gestation. Plasma hCG testing is recommended if clinically indicated. Urine Spec Grav 1.014 <=1.005 to >=1.030 06/20/2021 11:08 PM EDT [facility] Urine Urine specimen obtained by clean catch procedure / Unknown Non-blood Collection / Unknown 06/20/2021 10:54 PM EDT 06/20/2021 10:59 PM EDT Lara Benito [facility] URINE ORDERABLES Final Result Performing Organization Address [facility] Phone Number [facility] [address] [place] [address] * (ABNORMAL) Urinalysis with reflex microscopic (06/20/2021 10:54 PM EDT) Color, Urine Yellow LAB URINALYSIS - AUTOMATED METHOD 06/20/2021 11:16 PM EDT [facility] Clarity, Urine Clear LAB URINALYSIS - AUTOMATED METHOD 06/20/2021 11:16 PM EDT [facility] Spec [place], Urine 1.016 <=1.005 to >=1.030 LAB URINALYSIS - AUTOMATED METHOD 06/20/2021 11:16 PM EDT [facility] pH, Urine >=8.5(H) 4.5 to 8 LAB URINALYSIS - AUTOMATED METHOD 06/20/2021 11:16 PM EDT [facility] Protein, Urine Trace(A) Negative mg/dL LAB URINALYSIS - AUTOMATED METHOD 06/20/2021 11:16 PM EDT [facility] Glucose, Urine Negative Negative mg/dL LAB URINALYSIS - AUTOMATED METHOD 06/20/2021 11:16 PM EDT [facility] Ketones, Urine Negative Negative mg/dL LAB URINALYSIS - AUTOMATED METHOD 06/20/2021 11:16 PM EDT [facility] Blood, Urine Large(A) Negative LAB URINALYSIS - AUTOMATED METHOD 06/20/2021 11:16 PM EDT [facility] Bilirubin, Urine Negative Negative LAB URINALYSIS - AUTOMATED METHOD 06/20/2021 11:16 PM EDT [facility] Urobilinogen, Urine 0.2 0.2 to 1.0 mg/dL LAB URINALYSIS - AUTOMATED METHOD 06/20/2021 11:16 PM EDT [facility] Leukocytes, Urine Negative Negative LAB URINALYSIS - AUTOMATED METHOD 06/20/2021 11:16 PM EDT [facility] Nitrite, Urine Negative Negative LAB URINALYSIS - AUTOMATED METHOD 06/20/2021 11:16 PM EDT [facility] RBC, Urine 31 - 50(A) 0 to 3 /HPF 06/20/2021 11:16 PM EDT [facility] Comment:This result was prev iously suppressed from the chart. WBC, Urine 0 - 5 0 to 5 /HPF 06/20/2021 11:16 PM EDT [facility] Comment:This result was prev iously suppressed from the chart. Squamous Epithelial Cells 0 - 5 0 to 5 /HPF 06/20/2021 11:16 PM EDT [facility] Comment:This result was prev iously suppressed from the chart. Hyaline Casts 0 - 8 0 to 8 /LPF 06/20/2021 11:16 PM EDT [facility] Comment:This result was prev iously suppressed from the chart. Bacteria, Urine Negative Negative 06/20/2021 11:16 PM EDT [facility] Comment:This result was prev iously suppressed from the chart. Urine Urine specimen obtained by clean catch procedure / Unknown Non-blood Collection / Unknown 06/20/2021 10:54 PM EDT 06/20/2021 10:59 PM EDT Narrative [facility] - 06/20/2021 11:16 PM EDT Performed by manual method us Lara Benito APRN LAB URINE ORDERABLES Final Result [facility] [address] [place] [id number] * (ABNORMAL) PT-INR (06/20/2021 10:53 PM EDT) Prothrombin Time 11.9(L) 12.0 - 14.3 sec 06/20/2021 11:20 PM EDT [facility] INR 0.9 0.9 - 1.1 06/20/2021 11:20 PM EDT [facility] Blood Venous blood specimen / Unknown Venipuncture / Unknown 06/20/2021 10:53 PM EDT 06/20/2021 10:59 PM EDT Narrative [facility] - 06/20/2021 11:20 PM EDT OPTIMAL INR RANGES FOR PATIENT ON ORAL ANTICOAGULANT THERAPY Prevention of venous thromboembolism ?INR 2.0 to 3.0 In patients with heart disease: Atrial fibrillation ?INR 2.0 to 3.0 Valvular heart disease ? INR 2.0 to 3.0 Tissue heart valves ?INR 2.0 to 3.0 Mechanical prosthetic valves ? INR 2.5 to 3.5 Prevention of recurrent NH ? INR 2.5 to 3.5 us Lara Benito AMMONIUM NITRATE CRYSTALLIZER LAB BLOOD ORDERABLES Final Result Performing Organization Address [facility] Co de Phone Number [facility] [address] [place] [address] * Phosphorus (06/20/2021 10:53 PM EDT) [facility] Phosphorus, Plasma 3.7 2.5 - 4.5 mg/dL 06/20/2021 11:27 PM EDT [facility] Blood Venous blood specimen / Unknown Venipuncture / Unknown 06/20/2021 10:53 PM EDT 06/20/2021 10:59 PM EDT Lara Benito AMMONIUM NITRATE CRYSTALLIZER LAB BLOOD ORDERABLES Final Result Performing Organization Address [facility] Co de Phone Number [facility] [address] [place] [address] * Magnesium (06/20/2021 10:53 PM EDT) Magnesium, Plasma 2.0 1.9 - 2.4 mg/dL 06/20/2021 11:27 PM EDT [facility] Blood Venous blood specimen / Unknown Venipuncture / Unknown 06/20/2021 10:53 PM EDT 06/20/2021 10:59 PM EDT Lara Florence Jigna AMMONIUM NITRATE CRYSTALLIZER LAB BLOOD ORDERABLES Final Result [facility] [address] [place] [address] * Lipase (06/20/2021 10:53 PM EDT) Lipase, Plasma 37 19 - 63 U/L 06/20/2021 11:27 PM EDT [facility] Blood Venous blood specimen / Unknown Venipuncture / Unknown 06/20/2021 10:53 PM EDT 06/20/2021 10:59 PM EDT Lara Gonzalezkins AMMONIUM NITRATE CRYSTALLIZER LAB BLOOD ORDERABLES Final Result Performing Organization Address [facility] Co de Phone Number [facility] [address] [place] [address] * (ABNORMAL) CMP (06/20/2021 10:53 PM EDT) Glucose, Plasma 124(H) 74 - 99 mg/dL 06/20/2021 11:27 PM EDT [facility] BUN, Plasma 7 7 - 21 mg/dL 06/20/2021 11:27 PM EDT [facility] Creatinine, Plasma 0.56(L) 0.60 - 1.10 mg/dL 06/20/2021 11:27 PM EDT [facility] BUN/Creatinine Ratio 13 06/20/2021 11:27 PM EDT [facility] Sodium, Plasma 136 136 - 145 mmol/L 06/20/2021 11:27 PM EDT [facility] Potassium, Plasma 4.4 3.7 - 4.8 mmol/L 06/20/2021 11:27 PM EDT [facility] Comment:Reference range for Serum potassium is 0.2 to 0.5 mmol/L higher than Plasma range. Chloride, Plasma 98 97 - 107 mmol/L 06/20/2021 11:27 PM EDT [facility] CO2, Plasma 28 22 - 29 mmol/L 06/20/2021 11:27 PM EDT [facility] Anion Gap 10 6 - 16 mmol/L 06/20/2021 11:27 PM EDT [facility] Total Calcium, Plasma 9.0 8.9 - 10.2 mg/dL 06/20/2021 11:27 PM EDT [facility] Total Protein 6.6 6.3 - 7.9 g/dL 06/20/2021 11:27 PM EDT [facility] Albumin, Plasma 3.9 3.5 - 5.2 g/dL 06/20/2021 11:27 PM EDT [facility] AST, Plasma 60(H) 11 - 32 U/L 06/20/2021 11:27 PM EDT [facility] ALT, Plasma 85(H) 8 - 33 U/L 06/20/2021 11:27 PM EDT [facility] Alkaline Phosphatase, Plasma 127(H) 35 - 104 U/L 06/20/2021 11:27 PM EDT [facility] Total Bilirubin, Plasma <0.2(L) 0.2 - 1.1 mg/dL 06/20/2021 11:27 PM EDT [facility] eGFR >60 >60 mL/min/1.7 3m*2 06/20/2021 11:27 PM EDT [facility] Comment:eGFR = estimated GFR ; eGFR units = mL/min/1.73 sq meters Chronic Kidney Disease is considered if eGFR <60 mL/min/1.73 sq meters Kidney failure is considered if eGFR is <15 mL/min/1.73 sq meters. eGFR assumes steady state plasma creatinine concentration; not applicable if renal function is rapidly changing or patient is on dialysis. eGFR, if AFR/AM >60 >60 mL/min/1.7 3m*2 06/20/2021 11:27 PM EDT [facility] Comment:eGFR = estimated GFR ; eGFR units = mL/min/1.73 sq meters Chronic Kidney Disease is considered if eGFR <60 mL/min/1.73 sq meters Kidney failure is considered if eGFR is <15 mL/min/1.73 sq meters. eGFR assumes steady state plasma creatinine concentration; not applicable if renal function is rapidly changing or patient is on dialysis. Blood Venous blood specimen / Unknown Venipuncture / Unknown 06/20/2021 10:53 PM EDT 06/20/2021 10:59 PM EDT Lara Benito AMMONIUM NITRATE CRYSTALLIZER LAB BLOOD ORDERABLES Final Result [facility] [address] [place] [id number] * CBC w/diff (06/20/2021 10:53 PM EDT) WBC Count 7.27 3.70 - 10.30 10*3/uL LAB HEMATOLOGY METHOD 06/20/2021 11:15 PM EDT [facility] RBC Count 4.09 3.90 - 5.20 10*6/uL LAB HEMATOLOGY METHOD 06/20/2021 11:15 PM EDT [facility] HGB 11.5 11.2 - 15.7 g/dL LAB HEMATOLOGY METHOD 06/20/2021 11:15 PM EDT [facility] [place] [facility] HCT 34.8 34.0 - 45.0 % LAB HEMATOLOGY METHOD 06/20/2021 11:15 PM EDT [facility] [place] [facility] Platelet Count 197 155 - 369 10*3/uL LAB HEMATOLOGY METHOD 06/20/2021 11:15 PM EDT [facility] [place] [facility] MCV 85 79 - 98 fL LAB HEMATOLOGY METHOD 06/20/2021 11:15 PM EDT [facility] [place] [facility] MCH 28.1 26.0 - 32.0 pg LAB HEMATOLOGY METHOD 06/20/2021 11:15 PM EDT [facility] [place] [facility] MCHC 33.0 30.7 - 35.5 g/dL LAB HEMATOLOGY METHOD 06/20/2021 11:15 PM EDT [facility] [place] [facility] RDW 14.5 11.5 - 14.5 % LAB HEMATOLOGY METHOD 06/20/2021 11:15 PM EDT [facility] [place] [facility] MPV 9.7 8.8 - 12.5 fL LAB HEMATOLOGY METHOD 06/20/2021 11:15 PM EDT [facility] [place] [facility] nRBC 0.0 <=0.0 per 100 WBCs LAB HEMATOLOGY METHOD 06/20/2021 11:15 PM EDT [facility] [place] [facility] Differential Type Automated LAB HEMATOLOGY METHOD 06/20/2021 11:15 PM EDT [facility] [place] [facility] Neutrophils % 67.0 % LAB HEMATOLOGY METHOD 06/20/2021 11:15 PM EDT [facility] [place] [facility] Lymphocytes % 25.0 % LAB HEMATOLOGY METHOD 06/20/2021 11:15 PM EDT [facility] [place] [facility] Monocytes % 6.0 % LAB HEMATOLOGY METHOD 06/20/2021 11:15 PM EDT [facility] [place] [facility] Eosinophils % 0.0 % LAB HEMATOLOGY METHOD 06/20/2021 11:15 PM EDT [facility] [place] [facility] Basophils % 1.0 % LAB HEMATOLOGY METHOD 06/20/2021 11:15 PM EDT [facility] [place] [facility] Immature Granulocytes % 1.0 % LAB HEMATOLOGY METHOD 06/20/2021 11:15 PM EDT [facility] [place] [facility] Neutrophils Absolute 4.93 1.60 - 6.10 10*3/uL LAB HEMATOLOGY METHOD 06/20/2021 11:15 PM EDT [facility] [place] [facility] Lymphocytes Absolute 1.85 1.20 - 3.90 10*3/uL LAB HEMATOLOGY METHOD 06/20/2021 11:15 PM EDT [facility] [place] [facility] Monocytes Absolute 0.41 0.30 - 0.90 10*3/uL LAB HEMATOLOGY METHOD 06/20/2021 11:15 PM EDT [facility] [place] [facility] Eosinophils Absolute 0.00 0.00 - 0.50 10*3/uL LAB HEMATOLOGY METHOD 06/20/2021 11:15 PM EDT [facility] [place] [facility] Basophils Absolute 0.04 0.00 - 0.10 10*3/uL LAB HEMATOLOGY METHOD 06/20/2021 11:15 PM EDT [facility] [place] [facility] Immature Granulocytes Absolute 0.04 0.00 - 0.06 10*3/uL LAB HEMATOLOGY METHOD 06/20/2021 11:15 PM EDT [facility] [place] [facility] Blood Venous blood specimen / Unknown Venipuncture / Unknown 06/20/2021 10:53 PM EDT 06/20/2021 10:59 PM EDT [facility] - 06/20/2021 11:15 PM EDT Therapeutic decision making should be based on absolute values, rather than percentages. us Lara Benito APRN LAB BLOOD ORDERABLES Final Result [facility] [address] [place], [place] [id number] * XR Chest 1 View (06/20/2021 10:37 PM EDT) Anatomical Region Laterality Modality Chest Digital Radiogra phy Impressions 06/20/2021 10:45 PM EDT Unremarkable chest examination. CRITICAL RESULT: ?? No. COMMUNICATION: Per this written report. Dictated by Ishmael Hawkins on 06/20/2021 10:44 PM Signed by Ishmael Hawkins on 06/20/2021 10:45 PM Narrative 06/20/2021 10:45 PM EDT Exam/Procedure: XR CHEST 1 VIEW ordered by LARA BENITO [id number] CLINICAL INDICATION: abd pain TECHNIQUE: XR CHEST 1 VIEW COMPARISON: None. FINDINGS: Lungs are clear. Heart and mediastinal contours are within normal limits. No pneumothorax. ??No pleural effusion. Bony structures are unremarkable. Procedure Note Ishmael Hawkins MD - 06/20/2021 Exam/Procedure: XR CHEST 1 VIEW ordered by LARA BENITO [id number] CLINICAL INDICATION: abd pain TECHNIQUE: XR CHEST 1 VIEW COMPARISON: None. FINDINGS: Lungs are clear. Heart and mediastinal contours are within normal limits.No pneumothorax. No pleural effusion. Bony structures are unremarkable. IMPRESSION: Unremarkable chest examination. CRITICAL RESULT: No. COMMUNICATION: Per this written report. Dictated by Ishmael Hawkins on 06/20/2021 10:44 PM Signed by Ishmael Hawkins on 06/20/2021 10:45 PM us Lara Benito AMMONIUM NITRATE CRYSTALLIZER IMG XR PROCEDURES Final Re sult * EKG now - STAT (adult) (06/20/2021 10:26 PM EDT) EKG DIAGNOSIS CLASS Borderline Abnormal MUSE ECG Ventricular Rate 118 BPM MUSE ECG Atrial Rate 118 BPM MUSE ECG NY Interval 126 ms MUSE ECG QRSD Interval 76 ms MUSE ECG QT Interval 326 ms MUSE ECG QTC Interval 456 ms MUSE ECG P [place] 32 degrees MUSE ECG R [place] 50 degrees MUSE ECG T Wave [place] 28 degrees MUSE ECG Diagnosis Sinus tachycardia MUSE ECG Diagnosis Otherwise normal ECG MUSE ECG Diagnosis Confirmed by Francis Day ([id number]) on 06/21/2021 11:58:58 AM MUSE ECG 06/20/2021 10:2 6 PM EDT 06/21/2021 11:58 AM EDT Lara Henriquez Jigna ORELLANA ECG ORDERABLES Final Resu lt MUSE ECG documented in this encounter Visit Diagnoses Diagnosis Abdominal pain, unspecified abdominal location- Primary documented in this encounter Administered Medications Inactive Administered Medications - up to 3 most recent administrations Medication Order MAR Action Action Date Dose Rate Site HYDROmorphone (Dilaudid) injection 1 mg 1 mg, Intravenous, Once, 1 dose, On Annabel 06/20/21 at 2230, Routine Given 06/20/2021 10:54 PM EDT 1 mg iohexol (OMNIPaque) 300 MG/ML injection 100 mL 100 mL, Intravenous, Once in imaging, 1 dose, Starting on Thu06/21/21 at 0001, Until Thu06/21/21 at 0015, Routine, Imaging Protocol Orders Given 06/21/2021 12:15 AM EDT 90 mL ondansetron (Zofran) injection 4 mg 4 mg, Intravenous, Once, 1 dose, On Annabel 06/20/21 at 2300, STAT Given 06/20/2021 11:17 PM EDT 4 mg oxyCODONE (Roxicodone) immediate release tablet 5 mg 5 mg, Oral, Once, 1 dose, On Thu06/21/21 at 0035, STAT Given 06/21/2021 12:59 AM EDT 5 mg oxyCODONE (Roxicodone) immediate release tablet 5 mg 5 mg, Oral, Once, 1 dose, On Thu06/21/21 at 0210, STAT Given 06/21/2021 2:12 AM EDT 5 mg sodium chloride 0.9 % infusion - 1,000mL 1,000 mL, Intravenous, Once, 1 dose, On Annabel 06/20/21 at 2230, STAT New Bag 06/20/2021 10:53 PM EDT 1,000 mL documented in this encounter Active and Recently Administered Medications Times are shown in EDT. Scheduled Medication Order 06/19/2021 06/20/2021 06/21/2021 HYDROmorphone (Dilaudid) injection 1 mg (COMPLETED) 1 mg, Intravenous, Once, 1 dose, On Annabel 06/20/21 at 2230, Routine 2254 (Given - Provider: Marybeth Lopez RN) iohexol (OMNIPaque) 300 MG/ML injection 100 mL (COMPLETED) 100 mL, Intravenous, Once in imaging, 1 dose, Starting on Thu06/21/21 at 0001, Until Thu06/21/21 at 0015, Routine, Imaging Protocol Orders 0015 (Given - Provid er: Rubens Ellis) ondansetron (Zofran) injection 4 mg (COMPLETED) 4 mg, Intravenous, Once, 1 dose, On Annabel 06/20/21 at 2300, STAT 2317 (Given - Provider: Marybeth Lopez RN) oxyCODONE (Roxicodone) immediate release tablet 5 mg (COMPLETED) 5 mg, Oral, Once, 1 dose, On Thu06/21/21 at 0035, STAT 0059 (Given - Provid er: Marybeth Lopez RN) oxyCODONE (Roxicodone) immediate release tablet 5 mg (COMPLETED) 5 mg, Oral, Once, 1 dose, On Thu06/21/21 at 0210, STAT 0212 (Given - Provid er: Marybteh Lopez RN) sodium chloride 0.9 % infusion - 1,000mL (COMPLETED) 1,000 mL, Intravenous, Once, 1 dose, On Annabel 06/20/21 at 2230, STAT 2253 (New Bag - Provider: Marybeth Lopez RN) 0059 (Stopped - Provider: Marybeth Lopez RN) documented in this encounter Additional Health Concerns Assessment Noted Time A fall risk assessment has been complete d for the patient 11/21/2020 2:30 PM EDT documented as of this encounter Care Teams Fuel Handler Relationship Specialty Start Date End Date Elmo Escobar MD PCP - General 10/18/20 01/05/23 documented as of this encounter
--- OUTSIDE RECORDS SUMMARY | 2024-02-03 15:25 | XMS_ITS | Encounter Summary ---
Author Organization Healthcare Address [address] [place] [address] Care Team Providers Care Nursing Staff Development Coordinator Name Role Phone Elmo Escobar MD Primary Care Provider [phone] Reason for Visit * Reason Comments Abdominal Pain Vomiting * Auth/Cert Specialty Diagnoses / Procedures Referred By Contac t Referred To Contact Diagnoses Dehydration Chronic pancreatitis, unspecified pancreatitis type (CMS/HCC) Kenny Landry MD [address] [place] [address] Phone: tel: fax: [facility] [address] [place] [address] Phone: tel: Referral ID Status Reason Start Date Expiration Date Visits Re quested Visits Authorized [id number] 1 Encounter Details Date Type Department Care Team (Latest Contact Info) Description 05/09/2021 11:46 AM EDT - 05/12/2021 11:28 AM EDT Hospital Encounter [facility] [address] [place] [address] Kenny Landry MD [address] [place] [address] Lida Donovan MD Dehydration (Primary Dx); Other chronic pain; Chronic gastric erosion; Gastroesophageal reflux disease without esophagitis; Duodenal ulcer; Recurrent pancreatitis; Fibromyalgia Discharge Disposition: Home or Self Care [...] have Coronavirus / COVID-19? No / Unsure 05/09/2021 11:43 AM EDT documented as of this encounter Last Filed Vital Signs Vital Sign Reading Time Taken Comments Blood Pressure 129/87 05/12/2021 6:07 AM EDT Pulse 85 05/12/2021 6:07 AM EDT Temperature 36.7 ??C (98 ??F) 05/12/2021 6:07 AM EDT Respiratory Rate 18 05/12/2021 3:55 AM EDT Oxygen Saturation 96% 05/12/2021 6:07 AM EDT Inhaled Oxygen Concentration - - Weight 94.3 kg (208 lb) 05/09/2021 6:02 PM EDT Height 165.1 cm (5' 5 ) 05/09/2021 6:02 PM EDT Body Mass Index 34.61 05/09/2021 6:02 PM EDT documented in this encounter Medications at Time of Discharge acetaminophen (Tylenol) 500 MG tablet Take 1,000 mg by mouth every 6 (six) hours if needed for mild pain. 07/25/19 Latuda 40 MG tablet Take 40 mg by mouth 1 (one) time each day with breakfast. 10/14/2020 03/20/19 Melatonin 10 MG tablet Take 10 tablets by mouth at night if needed (sleep). 12/21/19 naloxone (Narcan) 4 mg/0.1 mL nasal sprayIndications:Op ioid Overdose Administer 1 spray (4 mg total) into affected nostril(s) if needed for opioid reversal or respiratory depression. Call 911. Give 4 mg (1 spray) into one nostril. Repeat every 2-3 minutes as needed, alternating nostrils, until medical assistance arrives. 1 each 2 02/10/2021 05/25/19 22 ondansetron ODT (Zofran-ODT) 8 MG disintegrating tablet Take 1 tablet (8 mg total) by mouth every 8 (eight) hours if needed for nausea or vomiting for up to 7 days. 21 tablet 05/12/2021 05/28/19 22 oxyCODONE (Roxicodone) 15 MG immediate release tablet Take 1 tablet (15 mg total) by mouth every 4 (four) hours if needed (severe pain). 18 tablet 05/12/2021 05/23/19 22 pancrelipase, Oyu-Odve-Yhdw, (Creon) 93640-49485 units capsule Take 2 capsules by mouth [...] 10 mL (1 g total) by mouth every 6 (six) hours. 1200 mL 04/20/2021 05/28/19 22 venlafaxine XR (Effoxor-XR) 150 MG 24 hr capsule Take 150 mg by mouth 1 (one) time each day. 07/07/2020 03/20/19 23 documented as of this encounter Miscellaneous Notes * Nursing Note - Ashely Squires RN - 05/12/2021 10:57 AM EDT Patient was provided discharge instructions and education. Patient is agreeable at this time to discharge. Patient was administered 15mg of oxycodone prior to discharge per MD instruction. Patient's medications were delivered to from retail pharmacy. The patient's mother is at BS and per patien the mother will be driving patient home. * Discharge Summary - Lida Donovan MD - 05/12/2021 9:24 AM EDT Hospitalization Admit Date/Time: 05/09/2021 11:46 AM Admitting Attending: Kenny Landry Discharge Date: 05/12/2021 Discharge Attending Physician: Lida Donovan Md PCP name and Address: Elmo Escobar MD [address] [facility] / [place] [address] Referring provider name and address: No referring provider defined for this encounter. Chief Concern, Brief History of Present Illness, and Hospital Course Ms. Gayle is a 35YO F with chronic abdominal pain who presented to ED with acute flare of abdominal pain. Workup was not consistent with pancreatitis, UGI bleed, inflammatory process, or other acute pathology. Pt's WBC, electrolytes, renal function, and lipase were all normal. Symptoms improved with supportive care, including zofran and a bowel regimen. Home medications were continued. On discharge, the patient is tolerating po intake. She has follow up scheduled with GI clinic. Fdc, ptwould benefit from weaning off opioids due to likely exacerbation of symptoms with current dosing. Surgeries and Procedures none Medication List .. acetaminophen 500 MG tablet Commonly known as: Tylenol Take 1,000 mg by mouth every 6 (six) hours if needed for mild pain. Latuda 40 MG tablet Generic drug: lurasidone Take 40 mg by mouth 1 (one) time each day with breakfast. Melatonin 10 MG tablet Take 10 tablets by mouth at night if needed (sleep). naloxone 4 mg/0.1 mL nasal spray Commonly known as: Narcan Administer 1 spray (4 mg total) into affected nostril(s) if needed for opioid reversal or respiratory depression. Call 911. Give 4 mg (1 spray) into one nostril. Repeat every 2-3 minutes as needed, alternating nostrils, until medical assistance arrives. ondansetron ODT 8 MG disintegrating tablet Commonly known as: Zofran-ODT Take 1 tablet (8 mg total) by mouth every 8 (eight) hours if needed for nausea or vomiting for up to 7 days. oxyCODONE 15 MG immediate release tablet Commonly known as: Roxicodone Take 1 tablet (15 mg total) by mouth every 4 (four) hours if needed (severe pain). pancrelipase (Vmd-Clsw-Fytj) [id number] units capsule Commonly known as: Creon Take [...] mouth 2 (two) times a day. sucralfate 1 GM/10ML suspension Commonly known as: Carafate Take 10 mL (1 g total) by mouth every 6 (six) hours. venlafaxine XR 150 MG 24 hr capsule Commonly known as: Effoxor-XR Take 150 mg by mouth 1 (one) time each day. Where to Get Your Medications These medications were sent to [facility] [place] [address] ?? ondansetron ODT 8 MG disintegrating tablet You can get these medications from any pharmacy Bring a paper prescription for each of these medications ?? oxyCODONE 15 MG immediate release tablet Discharge Diagnosis Medical Problems Active and Resolved Hospital Problems Hospital Class 1 obesity in adult Bipolar depression (CMS/HCC) Fibromyalgia Tobacco abuse * (Principal) Chronic pancreatitis (CMS/HCC) Gastric erosions Post Discharge Instructions Continue lower-fat diet, avoid spicy foods and tomato based foods/sauces as well as citrus. Outpatient Follow-Up Future Appointments Date Time Provider Department Center 09/17/2021 3:40 PM DANIA Gunn [facility] Test Results Pending At Discharge none Pertinent Physical Exam At Time of Discharge Physical Exam Constitutional: Appearance: She is obese. HENT: Head: Normocephalic and atraumatic. Mouth/Throat: Mouth: Mucous membranes are moist. Pharynx: Oropharynx is clear. Cardiovascular: Rate and Rhythm: Normal rate and regular rhythm. Pulmonary: Effort: Pulmonary effort is normal. Breath sounds: Normal breath sounds. Abdominal: General: Abdomen is flat. Tenderness: There is no abdominal tenderness. Skin: General: Skin is warm and dry. Neurological: Mental Status: She is alert. Psychiatric: Mood and Affect: Mood normal. Behavior: Behavior normal. Discharge Disposition/Condition Disposition: Home Condition: Stable (s/sx potential problems absent or manageable) I spent >30 minutes of patient care and instruction time in preparation for this discharge. * Care Plan - Leta Sinclair - 05/11/2021 9:26 PM EDT progressing * Consults - Napoleon Pascal - 05/11/2021 2:25 PM EDT Pastoral Care Note Introduced pastoral care to patient and mother. Engaged in supportive listening. Patient requested prayer for a family member. Provided prayer and encouragement. Referral From: Cad Detailer initiated Pastoral Care Provided For: Patient,Parent(s) Patient Profile: Consult Reasons: Initial visit Spiritual Assessment: Support Systems/ Spiritual Resources: Lara,Family,Pets Spiritual Needs: Emotional support Spiritual Issues: Anxiety Coping Skills: Fluctuating Interventions: Interventions Provided: Emotional support,Prayer Pastoral Care Outcomes: * Hospital Course - Latricia Marino MD - 05/11/2021 12:36 PM EDT Ms. Gayle is a 35YO F with chronic abdominal pain who presented to ED with acute flare of abdominal pain. Workup was not consistent with pancreatitis, UGI bleed, inflammatory process, or other acute pathology. Pt's WBC, electrolytes, renal function, and lipase were all normal. Symptoms improved with supportive care, including zofran and a bowel regimen. Home medications were continued. On discharge, the patient is tolerating po intake. She has follow up scheduled with GI clinic. Fdc, ptwould benefit from weaning off opioids due to likely exacerbation of symptoms with current dosing. * Progress Notes - Latricia Marino MD - 05/11/2021 11:49 AM EDT Subjective Pt has nausea this morning, no emesis. Able to eat yesterday. Has abdominal tenderness, no pain. Has not had a bowel movement since admission. Feels better overall, but worried about going home and asks to stay an additional day. Review of Systems Constitutional: Negative for chills and fever. Gastrointestinal: Positive for abdominal pain, constipation and nausea. Negative for diarrhea and vomiting. Objective Physical Exam Vitals reviewed. Constitutional: General: She is not in acute distress. Appearance: She is obese. She is not toxic-appearing. HENT: Head: Normocephalic. Eyes: General: No scleral icterus. Extraocular Movements: Extraocular movements intact. Cardiovascular: Rate and Rhythm: Normal rate and regular rhythm. Pulmonary: Effort: Pulmonary effort is normal. Breath sounds: Normal breath sounds. Abdominal: General: Bowel sounds are normal. There is no distension. Palpations: Abdomen is soft. There is no mass. Tenderness: There is abdominal tenderness (TTP epigastric). There is no guarding. Musculoskeletal: Cervical back: Normal range of motion and neck supple. Skin: General: Skin is warm and dry. Neurological: Mental Status: She is alert. Psychiatric: Mood and Affect: Mood normal. Behavior: Behavior normal. Last Recorded Vitals Blood pressure 124/79, pulse 88, temperature 36.5 ??C (97.7 ??F), resp. rate 18, height 1.651 m (5'5 ), weight 94.3 kg (208 lb), SpO2 100 %, not currently . Assessment/Plan Principal Problem: Chronic pancreatitis (CMS/HCC) Rosibel Gayle is a 35 year old woman with a PMH significant for Fibromyalgia, Polysubstance Use Disorder, Bipolar Disorder, and Chronic Pancreatitis [facility] Medicine consulted for admission given inability to tolerate PO intake. ?? Nausea, inability to tolerate po, improving- - ddx most likely dyspepsia, opioid medication side effect, or functional abdominal pain. Patient is tolerating po, but requiring zofran to manage symptoms PLAN: - continue po diet with Creon, to be given with meals - continue home Pantoprazole, Sucralfate, Oxycodone PRN. Decreased frequency of oxycodone given constipation. Pt would benefit from wean off of this medication in the salvage determiner - GI cocktail PRN; tylenol PRN -discharge in the am ?? Bipolar Disorder- continue home Latuda ?? Fibromyalgia- Home venlafaxine and pregabalin restarted ?? Iron deficiency anemia- -Hgb 12.2->10.1 after fluid resuscitation. No s/s bleeding. ?? F: po E: WNL N: regular ?? Ppx: pLov inj ?? Code status: full ?? Dispo: home in am ?? Latricia Marino MD Internal Medicine, PGY 3 Pgr: [phone] Cosigned by Lida Donovan MD at 05/11/2021 12:43 PM EDT Associated attestation - Lida Donovan MD - 05/11/2021 12:43 PM EDT I saw and evaluated the patient. I discussed the case with the resident/fellow and agree with the findings and plan as documented. * Care Plan - Leta Sinclair - 05/10/2021 9:01 PM EDT Progressing * Consults - Sharon Bullard - 05/10/2021 5:28 PM EDT Pastoral Care Note Attempted introduction of pastoral care to patient. Patient sleeping. Will attempt to follow up and/or refer at a later time. Referral From: Cad Detailer initiated Pastoral Care Provided For: Patient Patient Profile: Consult Reasons: Initial visit Unable to Assess: Unavailable Spiritual Assessment: Interventions: Interventions Provided: Emotional support Pastoral Care Outcomes: * Progress Notes - Latricia Marino MD - 05/10/2021 10:36 AM EDT Subjective Pt slept well. C/o nausea, no emesis this morning. +epigastric squeezing , no pain. Passing gas, has not had BM. Unable to tolerate po for 2-3 days. Review of Systems Constitutional: Positive for appetite change. Negative for chills, fever and unexpected weight change. Gastrointestinal: Positive for nausea. Negative for abdominal pain, constipation and vomiting. Objective Physical Exam Vitals reviewed. Constitutional: General: She is not in acute distress. Appearance: She is obese. She is not toxic-appearing. HENT: Head: Normocephalic. Eyes: General: No scleral icterus. Extraocular Movements: Extraocular movements intact. Cardiovascular: Rate and Rhythm: Normal rate and regular rhythm. Pulmonary: Effort: Pulmonary effort is normal. Breath sounds: Normal breath sounds. Abdominal: General: Bowel sounds are normal. There is no distension. Palpations: Abdomen is soft. There is no mass. Tenderness: There is abdominal tenderness (TTP epigastric). There is no guarding. Musculoskeletal: Cervical back: Normal range of motion and neck supple. Skin: General: Skin is warm and dry. Neurological: Mental Status: She is alert. Psychiatric: Mood and Affect: Mood normal. Behavior: Behavior normal. Last Recorded Vitals Blood pressure 144/86, pulse 102, temperature 36.9 ??C (98.4 ??F), temperature source Oral, resp. rate 16, height 1.651 m (5' 5 ), weight 94.3 kg (208 lb), SpO2 97 %, not currently . Assessment/Plan Principal Problem: Chronic pancreatitis (CMS/HCC) Rosibel Gayle is a 35 year old woman with a PMH significant for Fibromyalgia, Polysubstance Use Disorder, Bipolar Disorder, and Chronic Pancreatitis [facility] Medicine consulted for admission given inability to tolerate PO intake. ?? Nausea, inability to tolerate po- - Initial presentation concerning for pain associated with chronic pancreatitis, however, pt is without abd pain at this time, lipase is normal and previous workup for pancreatitis without consistentimaging findings. At this time, given squeezing sensation in epigastrum and nausea, ddx most likelyerosive gastritis, opioid medication side effect, or functional abdominal pain. - Pt is managing fluid status and electrolytes well despite not tolerating po intake. - Pt states her nausea is responding well to treatment at this time and she is ready to attempt po intake. PLAN: - start po diet - Resume home Creon to be given with meals - Resume home Pantoprazole, Sucralfate, Oxycodone PRN - GI cocktail PRN; tylenol PRN - if patient is tolerating po this afternoon, it would be appropriate to discharge with outpatient follow up ?? Bipolar Disorder - Resume home Latuda ?? Fibromyalgia - Home venlafaxine and pregabalin restarted Iron deficiency anemia- -Hgb 12.2->10.1 after fluid resuscitation. No s/s bleeding. F: po E: WNL N: regular Ppx: pLov inj Code status: full Dispo: pending po intake Latricia Marino MD Internal Medicine, PGY 3 Pgr: [phone] Cosigned by Lida Donovan MD at 05/10/2021 10:53 AM EDT Associated attestation - Lida Donovan MD - 05/10/2021 10:53 AM EDT I saw and evaluated the patient. I discussed the case with the resident/fellow and agree with the findings and plan as documented. * Progress Notes - Abel Lehman CSW - 05/10/2021 7:57 AM EDT Case Management Adult Initial Progress Note Rosibel Gayle 35 y.o. female CSN: [id number] Admission: 05/09/2021 11:46 AM Primary Problem: Chronic pancreatitis (CMS/HCC) PCP: Elmo Escobar MD Emergency Contact: Extended Emergency Contact Information Primary Emergency Contact: Asiya Flores Address: [address] [place] [address] [place] Relation: Mother Insurance: Primary Visit Coverage Payer Plan Sponsor Code Group Number Group Name ANTHEM MEDICAID ANTHEM MEDICAID [id number] Primary Visit Coverage Subscriber Subscriber ID Subscriber Name Subscriber SSN Subscriber Address [id number] ROSIBEL GAYLE [id number] [place], [place] [id number] Daily Living Activities: [address] [place], [place] [id number] Additional Comments: Pt lives at [address] [place] [address]. Pt EC/mom is Asiya Flores [phone]. Pt lives with mom, fiance, and kid. No DME/O2/HH/HD/InF. PCP is [facility]. Family able to provide transportation/assitance. No LW/POA. Primary insurance is [place] [employer]. No CM needs identified at this time, SW will continue to follow and assist. ANTONIO Angulo * H&P - Kirill Jonas MD - 05/09/2021 4:58 PM EDTAssociated Order(s): Consult to [facility] Images from the original note were not included. Consult to [facility] Consult performed by: Kirill Jonas MD Consult ordered by: Kenny Tolentino MD Reason for consult: Abdominal Pain Assessment/Recommendations: Admit to Medicine History Of Present Illness Rosibel Gayle is a 35 y.o. female with recurrent acute on chronic pancreatitis who presents to the [facility] ED for abdominal pain. Ms. Gayle reports similar abdominal pain to prior episodes of pancreatitis in location but reports her pain is more squeezing than sharp today. She reports four days of worsening abdominal pain associated with poor PO intake. When attempting to eat or drink, Ms. Gayle has emesis. Denies any blood in emesis. No recent fever, chills, constipation. Reports diarrhea intermittently. No recent sick contacts. Recently admitted here at [facility] for similar symptoms. Follows with gastroenterology here at . Past Medical History She has a past medical history of Anxiety, Arthritis, Depression, Fibromyalgia, GERD (gastroesophageal reflux disease), Hypertension, Nicotine dependence, Obesity, and Pancreatitis.She has no past medical history of Adverse effect of anesthesia, Asthma, Awareness under anesthesia, Cancer ([facility]),CHF (congestive heart failure) ([facility]), COPD (chronic obstructive pulmonary disease) ([facility]), Coronary artery disease, Delayed emergence from general anesthesia, Diabetes mellitus ([facility]), Disease of thyroid gland, Hard to intubate, History of transfusion, Malignant hyperthermia, PONV (postoperative nausea and vomiting), Pseudocholinesterase deficiency, Spinal headache, or Stroke ([facility]). Surgical History She has a past surgical history that includes Cholecystectomy; ERCP; Esophagogastroduodenoscopy; and Hand surgery. Family History Family History Problem Relation Name Age of Onset ??? Hypertension Mother ??? No Known Problems Father Social History She reports that she has been smoking cigarettes. She has a 7.50 pack-year smoking history. She hasnever used smokeless tobacco. She reports previous alcohol use. She reports previous drug use. Frequency: 4.00 times per week. Occupational History none Occupational History ??? Not on file Occupational Exposure Concern ??? Occupational Exposure No Employer: No address on file. Travel History Relevant International Travel History: Travel Screening Question Response In the last month, have you been in contact with someone who was confirmed or suspected to have Coronavirus / COVID-19? No / Unsure Have you had a COVID-19 viral test in the last 14 days? No Do you have any of the following new or worsening symptoms? Abdominal pain;Vomiting Have you traveled internationally or domestically in the last month? No Travel History Travel since 04/11/21 No documented travel since 04/11/21 Relevant Domestic Travel History: None Immunizations reviewed VACCINE/DOSE DATE DATE Flu 11/21/2019 12/27/2020 Tetanus Pneumovax Shingles Allergies Morphine and related and Tramadol Medications Current Facility-Administered Medications Medication Dose Route Frequency Provider Last Rate Last Admin ??? acetaminophen (Tylenol) tablet 1,000 mg 1,000 mg Oral q6h PRN Kirill Jonas MD ??? droperidol (Inapsine) injection 2.5 mg 2.5 mg Intravenous PRN Kirill Jonas MD 2.5 mg at 05/09/21 1238 ??? enoxaparin (Lovenox) syringe 40 mg 40 mg Subcutaneous Daily Kirill Jonas MD ??? [START ON 05/10/2021] lurasidone (Latuda) tablet 40 mg 40 mg Oral Daily with breakfast Kirill Casey MD ??? Melatonin tablet 10 tablet 10 tablet Oral Nightly PRN Kirill Jonas MD ??? ondansetron (Zofran) injection 4 mg 4 mg Intravenous q6h PRN Kirill Jonas MD ??? oxyCODONE (Roxicodone) immediate release tablet 15 mg 15 mg Oral q4h PRN Kirill Jonas MD ??? pancrelipase (Creon) 55836 units capsule 2 capsule Oral TID with meals Kirill Jonas MD ??? pantoprazole (Protonix) EC tablet 40 mg 40 mg Oral BID Kirill Jonas MD ??? [START ON 05/10/2021] pregabalin (Lyrica) capsule 300 mg 300 mg Oral BID Kirill Jonas MD ??? sodium chloride 0.9 % flush 10 mL 10 mL Intravenous q8h PRN Kirill Jonas MD And ??? sodium chloride 0.9 % flush 10 mL 10 mL Intravenous PRN Kirill Jonas MD ??? sucralfate (Carafate) 1 GM/10ML suspension 1 g 1 g Oral q6h INO Kirill Jonas MD ??? venlafaxine XR (Effexor-XR) 24 hr capsule 150 mg 150 mg Oral Daily Kirill Jonas MD Current Outpatient Medications Medication Sig Dispense Refill ??? acetaminophen (Tylenol) 500 MG tablet Take 1,000 mg by mouth every 6 (six) hours if needed for mild pain. ??? fluconazole (Diflucan) 150 MG tablet Take 1 tablet (150 mg total) by mouth 1 (one) time per week for 21 days. 3 tablet 0 ??? Latuda 40 MG tablet Take 40 mg by mouth 1 (one) time each day with breakfast. ??? lidocaine (Lidoderm) 5 % patch Apply 1 patch topically if needed (shoulder). ??? Melatonin 10 MG tablet Take 10 tablets by mouth at night if needed (sleep). ??? naloxone (Narcan) 4 mg/0.1 mL nasal spray Administer 1 spray (4 mg total) into affected nostril(s) if needed for opioid reversal or respiratory depression. Call 911. Give 4 mg (1 spray) into one nostril. Repeat every 2-3 minutes as needed, alternating nostrils, until medical assistance arrives.1 each 2 ??? ondansetron ODT (Zofran-ODT) 8 MG disintegrating tablet Take 1 tablet (8 mg total) by mouth every 8 (eight) hours if needed for nausea or vomiting for up to 7 days. 21 tablet 0 ??? pancrelipase, Lkl-Rgsu-Doob, (Creon) [id number] units capsule Take 2 capsules by mouth 3 (three) times a day with meals. ??? pantoprazole (Protonix) 40 MG EC tablet Take 1 tablet (40 mg total) by mouth 2 (two) times a day. Do not crush, chew, or split. 120 tablet 0 ??? pregabalin (Lyrica) 300 MG capsule Take 300 mg by mouth 2 (two) times a day. ??? promethazine (Phenergan) 12.5 MG tablet Take 1 tablet (12.5 mg total) by mouth every 6 (six) hours if needed for nausea or vomiting for up to 7 days. 21 tablet 0 ??? sucralfate (Carafate) 1 GM/10ML suspension Take 10 mL (1 g total) by mouth every 6 (six) hours.1200 mL 0 ??? venlafaxine XR (Effoxor-XR) 150 MG 24 hr capsule Take 150 mg by mouth 1 (one) time each day. Review of Systems Constitutional: Positive for appetite change. Negative for chills, diaphoresis, fatigue and fever. HENT: Negative. Eyes: Negative. Respiratory: Negative for cough, choking and shortness of breath. Cardiovascular: Negative for chest pain, palpitations and leg swelling. Gastrointestinal: Positive for abdominal pain (LUQ), diarrhea, nausea and vomiting. Negative for anal bleeding, blood in stool and constipation. Endocrine: Negative. Genitourinary: Negative. Musculoskeletal: Negative. Skin: Negative. Allergic/Immunologic: Negative. Neurological: Negative. Hematological: Negative. Psychiatric/Behavioral: Negative. Physical Exam Constitutional: General: She is not in acute distress. Appearance: Normal appearance. She is not ill-appearing or toxic-appearing. HENT: Head: Normocephalic and atraumatic. Eyes: General: No scleral icterus. Right eye: No discharge. Left eye: No discharge. Extraocular Movements: Extraocular movements intact. Conjunctiva/sclera: Conjunctivae normal. Cardiovascular: Rate and Rhythm: Normal rate and regular rhythm. Heart sounds: No murmur heard. Pulmonary: Effort: Pulmonary effort is normal. No respiratory distress. Abdominal: General: Abdomen is flat. Bowel sounds are normal. Palpations: There is no mass. Tenderness: There is abdominal tenderness. There is no guarding. Hernia: No hernia is present. Musculoskeletal: Right [...] Judgment normal. Last Recorded Vitals Blood pressure 142/88, pulse 80, temperature 36.8 ??C (98.2 ??F), temperature source Oral, resp. rate 18, height 1.651 m (5' 5 ), weight 94 kg (207 lb 3.7 oz), SpO2 97 %, not currently . Relevant Results - Initial workup essentially unremarkable. - Normal hemoglobin, creatinine. - Mild mixed cholestatic and hepatocellular liver injury, similar to prior lab work. Assessment/Plan Principal Problem: Chronic pancreatitis (CMS/HCC) Rosibel Gayle is a 35 year old woman with a PMH significant for Fibromyalgia, Polysubstance Use Disorder, Bipolar Disorder, and Chronic Pancreatitis [facility] Medicine consulted for admission given inability to tolerate PO intake. Epigastric Abdominal Pain, Acute on Chronic Pancreatitis - Likely secondary to Chronic pancreatitis - Lipase 19; low lipase does not rule out chronic pancreatic pain - Workup otherwise unremarkable aside from ALK and ALT elevation Plan: - NPO for bowel rest. Will advance diet as tolerated - s/p 1L IVF in ED. Will continue IVF as needed in setting of vomiting, decreased PO intake - Resume home Creon to be given with meals when tolerated - Resume home Pantoprazole, Sucralfate, Oxycodone PRN - GI cocktail PRN; tylenol PRN Bipolar Disorder - Resume home Latuda Fibromyalgia - Home venlafaxine and pregabalin restarted F: IVF, PO if tolerable per patient. E: Normal on admission. N: NPO for bowel rest. Will advance diet when tolerated per patient. DVT ppx: pLov Code: FULL Dispo: Admit to medicine for IV fluids, pain control. Kirill Jonas MD Internal Medicine, PGY-3 Pager: [phone] Cosigned by Lida Donovan MD at 05/10/2021 10:51 AM EDT Associated attestation - Lida Donovan MD - 05/10/2021 10:51 AM EDT I saw and evaluated the patient. I discussed the case with the resident/fellow and agree with the findings and plan as documented. * ED Provider Notes - Boston Choudhary MD - 05/09/2021 11:20 AM EDT Images from the original note were not included. Rosibel Gayle is a 35 y.o. 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 The pain is described as squeezing, and is severe in severity. The pain is located epigastric and is without radiation. Onset was 4 days ago. Symptoms have been constant since. Aggravating factors: Meals. Alleviating factors: No by mouth intake. Associated symptoms: By mouth intolerance, nausea, vomiting. The patient has had similar episodes before, with a previous diagnosis of Chronic pancreatitis. Patient is passing flatus, and patient's bowel movement was 2 days ago. The stools of patient's last BMare described as watery. ROS negative for fever, chills,black/bloody stools,, weight loss, night sweats. Patient also denies vaginal discharge, vaginal bleeding, with LMP approximately 3 weeks ago. A complete ROS was obtained and all are negative except pertinent positives in HPI. Past Medical History was reviewed. Patient has a past medical history of Anxiety, Arthritis, Depression, Fibromyalgia, GERD (gastroesophageal reflux disease), Hypertension, Nicotine dependence, Obesity, and Pancreatitis. She has no past medical history of Adverse effect of anesthesia, Asthma, Awareness under anesthesia, Cancer ([facility]), CHF (congestive heart failure) ([facility]), COPD (chronic obstructive pulmonary disease) ([facility]), Coronary artery disease, Delayed emergence from general anesthesia, Diabetes mellitus ([facility]), Disease of thyroid gland, Hard to intubate, History of transfusion, Malignant hyperthermia, PONV (postoperative nausea and vomiting), Pseudocholinesterase deficiency, Spinal headache, or Stroke ([facility]).. Social History was reviewed. Patient denies drug use. Alcohol frequency: History of frequent alcohol use several years ago Family History was reviewed and noncontributory. Old records were independently reviewed by me today. They are from [facility] system and were with relevant findings contributing to my description of patient's past medical history in HPI above. History was obtained by someone other than the patient, mother at bedside, and was with relevant findings contributing to the details of my description of patient's present illness as described in HPI above. No data recorded Past Surgical History: Procedure Laterality Date ??? [...] 4.0 times per week Comment: daily use none Occupational History ??? Not on file Occupational Exposure Concern ??? Occupational Exposure No Employer: No address on file. Travel History Relevant International Travel History: Travel Screening Question Response In the last month, have you been in contact with someone who was confirmed or suspected to have Coronavirus / COVID-19? No / Unsure Have you had a COVID-19 viral test in the last 14 days? No Do you have any of the following new or worsening symptoms? Abdominal pain;Vomiting Have you traveled internationally or domestically in the last month? No Travel History Travel since 04/11/21 No documented travel since 04/11/21 Immunization History Reviewed VACCINE/DOSE DATE DATE Flu 11/21/2019 12/27/2020 Tetanus Pneumovax Shingles Allergies Allergen Reactions ??? Morphine And Related Other Abdominal pain ??? Tramadol Dizziness and Rash Review of Systems Review of Systems All other systems reviewed and are negative. Physical Exam Physical Exam Vitals and nursing note reviewed. Constitutional: General: She is in acute distress. Appearance: Normal appearance. HENT: Head: Normocephalic and atraumatic. Right Ear: External ear normal. Left Ear: External ear normal. Nose: Nose normal. No rhinorrhea. Eyes: Extraocular Movements: Extraocular movements intact. Conjunctiva/sclera: Conjunctivae normal. Cardiovascular: Rate and Rhythm: Regular rhythm. Tachycardia present. Pulmonary: Effort: Pulmonary effort is normal. No respiratory distress. Abdominal: General: Abdomen is flat. There is no distension. Tenderness: There is abdominal tenderness in the epigastric area and left upper quadrant. Musculoskeletal: General: No deformity. Normal range of motion. Cervical back: Normal range of motion and neck supple. Skin: General: Skin is warm and dry. Capillary Refill: Capillary refill takes 2 to 3 seconds. Coloration: Skin is not jaundiced or pale. Neurological: General: No focal deficit present. Mental Status: She is alert and oriented to person, place, and time. Patient is a 35 y.o. female with history and exam per above presenting for evaluation of Abdominal Pain and Vomiting. Upon presentation to the emergency department, vital signs reveal ED Triage Vitals [05/09/21 1144] Temp Heart Rate Resp BP 36.7 ??C (98 ??F) 100 16 (!) 142/95 SpO2 Temp Source Heart Rate Source Patient Position 96 % Oral -- -- BP Location FiO2 (%) -- -- Differential diagnosis and my clinical impression at this time is most consistent with known history of chronic pancreatitis. My differential diagnosis also includes but is not limited to pancreatitis, gastritis, peptic ulcer disease, gastroparesis, pulmonary embolism, acute coronary syndrome, pneumonia. An EKG was ordered today. Encounter Date: 05/07/21 ECG Adult Result Value EKG DIAGNOSIS CLASS Borderline Abnormal Ventricular Rate 84 Atrial Rate 84 GA Interval 132 QRSD Interval 78 QT Interval 376 QTC Interval 444 P [place] 33 R [place] 21 T Wave [place] 15 Diagnosis Normal sinus rhythm Diagnosis Low voltage QRS Diagnosis late transition Diagnosis Borderline ECG Diagnosis Confirmed by Swapnil Mills ([id number]) on 05/07/2021 11:23:17 PM *Note: Due to a large number of results and/or encounters for the requested time period, some results have not been displayed. A complete set of results can be found in Results Review. This EKG was independently reviewed by me, and significant for NSR, normal axis, no acute ST-segment changes. The following orders were placed this encounter to fully explore this differential and aid in making a diagnosis: Orders Placed This Encounter Procedures ??? CBC and Differential ??? Comprehensive Metabolic Panel, Plasma ??? Lipase, Plasma ??? hCG qualitative ??? Consult to [facility] - [facility] ??? ED to floor bed request Laboratory analysis significant for Abnormal Labs Reviewed CBC WITH AUTO DIFFERENTIAL - Abnormal; Notable for the following components: Result Value RDW 15.2 (*) All other components within normal limits Narrative: Therapeutic decision making should be based on absolute values, rather than percentages. COMPREHENSIVE METABOLIC PANEL, PLASMA - Abnormal; Notable for the following components: Glucose, Plasma 109 (*) BUN, Plasma 6 (*) Potassium, Plasma 3.6 (*) CO2, Plasma 21 (*) ALT, Plasma 47 (*) Alkaline Phosphatase, Plasma 117 (*) All other components within normal limits Labs were independently interpreted by me. They are significant for lipase within normal limits, noleukocytosis, no acute electrolyte abnormality Patient was treated with Medications droperidol (Inapsine) injection 2.5 mg (2.5 mg Intravenous Given 05/09/21 1238) HYDROmorphone (Dilaudid) injection 0.25 mg (0.25 mg Intravenous Given 05/09/21 1239) lactated Ringer's infusion 1,000 mL (1,000 mL Intravenous New Bag 05/09/21 1238) gi cocktail oral solution 30 mL (30 mL Oral Given 05/09/21 1326) oxyCODONE (Roxicodone) immediate release tablet 5 mg (5 mg Oral Given 05/09/21 1327) ondansetron ODT (Zofran-ODT) disintegrating tablet 4 mg (4 mg Oral Given 05/09/21 1353) oxyCODONE (Roxicodone) immediate release tablet 5 mg (5 mg Oral Given 05/09/21 1353) Patient had minimal improvement of symptoms upon repeat evaluation, continued to not be able to tolerate by mouth upon repeat evaluation. The following services were consulted further evaluation and management: IP CONSULT TO [facility] Patient will be admitted hospital medicine service for further treatment. Boston Choudhary MD Resident 05/09/21 1606 Cosigned by Carter Donis MD at 05/10/2021 7:18 AM EDT Associated attestation - Carter Donis MD - 05/10/2021 7:18 AM EDT I saw and evaluated the patient with the resident/fellow. I discussed the case with the resident/fellow and agree with the findings and plan as documented. * ED Triage Notes - Andrew Gonzalez RN - 05/09/2021 11:20 AM EDT Pt with ongoing n/v, abd pain, hx of pancreatitis. Pt states pain feels different with this flare. Was seen here a few days ago for same. documented in this encounter Plan of Treatment Not on file documented as of this encounter Procedures Procedure Name Priority Date/Time Associated Diagnosis Comments POCT GLUCOSE METER UNSOLICITED RESULTS Routine 05/10/2021 5:43 AM EDT CBC W/O DIFFERENTIAL Routine 05/10/2021 2:43 AM EDT PHOSPHORUS, PLASMA Routine 05/10/2021 2: 43 AM EDT MAGNESIUM, PLASMA Routine 05/10/2021 2:4 3 AM EDT COMPREHENSIVE METABOLIC PANEL, PLASMA Routine 05/10/2021 2:43 AM EDT POCT GLUCOSE METER UNSOLICITED RESULTS Routine 05/10/2021 12:12 AM EDT SARS COV2 COVID 19/INFLUENZA A, B STAT 05/09/2021 5:18 PM EDT CBC WITH AUTO DIFFERENTIAL STAT 05/09/2021 12:38 PM EDT TEST QUALITATIVE PLASMA STAT 05/09/2021 12:37 PM EDT LIPASE, PLASMA STAT 05/09/2021 12:37 PM EDT COMPREHENSIVE METABOLIC PANEL, PLASMA STAT 05/09/2021 12:37 PM EDT documented in this encounter Results * POCT glucose meter (05/10/2021 5:43 AM EDT) POCT Glucose 96 74 - 99 mg/dL 05/10/2021 5:45 AM EDT [facility] [facility] Comment:Accuracy of a glucos e result obtained from a capillary whole blood specimen relies upon adequate, non-compromised capillary blood flow. If the capillary glucose result is not consistent with the patient's clinical signs and symptoms, glucose testing should be repeated with either an arterial or venous sample on the glucometer or sent to the main labortory for testing. Comment 05/10/2021 5:45 AM EDT [employer] [facility] Credit Portfolio Manager ID Hetal Ashton 05/10/2021 5:45 AM EDT [facility] Device ID [id number] 05/10/2021 5:45 AM EDT [facility] Specimen Type POC Capillary 05/10/2021 5:45 AM EDT [facility] Blood Capillary blood specimen / Unknown 05/10/2021 5:43 AM EDT 05/10/2021 5:45 AM EDT us Kenny Landry MD LAB POINT OF CARE TE ST DOCKED DEVICE UNSOLICITED RESULTS Final Result Performing Organization Address City/[facility]/ZIP Co de Phone Number [facility]ALTHCARE [facility] [address] [place] [address] * (ABNORMAL) Phosphorus (05/10/2021 2:43 AM EDT) Phosphorus, Plasma 4.9(H) 2.5 - 4.5 mg/dL 05/10/2021 4:03 AM EDT [facility] Blood Venous blood specimen / Unknown Venipuncture / Unknown 05/10/2021 2:43 AM EDT 05/10/2021 3:29 AM EDT us Kenny Landry MD LAB BLOOD ORDERABLES Final Resul t Performing Organization Address City/[facility] Co de Phone Number [facility]ARE [facility] [address] [place] [address] * Magnesium (05/10/2021 2:43 AM EDT) Magnesium, Plasma 2.0 1.9 - 2.4 mg/dL 05/10/2021 4:03 AM EDT [facility] Blood Venous blood specimen / Unknown Venipuncture / Unknown 05/10/2021 2:43 AM EDT 05/10/2021 3:29 AM EDT us Kenny Landry MD LAB BLOOD ORDERABLES Final Resul t Performing Organization Address City/[facility] Co de Phone Number [facility]ARE [facility] [address] [place] [address] * (ABNORMAL) Comprehensive metabolic panel (05/10/2021 2:43 AM EDT) Glucose, Plasma 90 74 - 99 mg/dL 05/10/2021 4:03 AM EDT [facility] BUN, Plasma 6(L) 7 - 21 mg/dL 05/10/2021 4:03 AM EDT [facility] Creatinine, Plasma 0.60 0.60 - 1.10 mg/dL 05/10/2021 4:03 AM EDT [facility]ALTH[facility] BUN/Creatinine Ratio 10 05/10/2021 4:03 AM [facility] Sodium, Plasma 139 136 - 145 mmol/L 05/10/2021 4:03 AM [facility] Potassium, Plasma 3.6(L) 3.7 - 4.8 mmol/L 05/10/2021 4:03 AM [facility] Comment:Reference range for Serum potassium is 0.2 to 0.5 mmol/L higher than Plasma range. Chloride, Plasma 104 97 - 107 mmol/L 05/10/2021 4:03 AM [facility] CO2, Plasma 25 22 - 29 mmol/L 05/10/2021 4:03 AM [facility] Anion Gap 10 6 - 16 mmol/L 05/10/2021 4:03 AM [facility] Total Calcium, Plasma 9.1 8.9 - 10.2 mg/dL 05/10/2021 4:03 AM [facility] Total Protein 6.0(L) 6.3 - 7.9 g/dL 05/10/2021 4:03 AM [facility] Albumin, Plasma 3.7 3.5 - 5.2 g/dL 05/10/2021 4:03 AM [facility] AST, Plasma 22 11 - 32 U/L 05/10/2021 4:03 AM [facility] ALT, Plasma 42(H) 8 - 33 U/L 05/10/2021 4:03 AM [facility] Alkaline Phosphatase, Plasma 92 35 - 104 U/L 05/10/2021 4:03 AM [facility] Total Bilirubin, Plasma 0.3 0.2 - 1.1 mg/dL 05/10/2021 4:03 AM [facility] eGFR >60 >60 mL/min/1.7 3m*2 05/10/2021 4:03 AM [facility] Comment:eGFR = estimated GFR ; eGFR units = mL/min/1.73 sq meters Chronic Kidney Disease is considered if eGFR <60 mL/min/1.73 sq meters Kidney failure is considered if eGFR is <15 mL/min/1.73 sq meters. eGFR assumes steady state plasma creatinine concentration; not applicable if renal function is rapidly changing or patient is on dialysis. eGFR, if AFR/AM >60 >60 mL/min/1.7 3m*2 05/10/2021 4:03 AM EDT [facility] Comment:eGFR = estimated GFR ; [...] blood specimen / Unknown Venipuncture / Unknown 05/10/2021 2:43 AM EDT 05/10/2021 3:29 AM EDT us Kenny Landry MD LAB BLOOD ORDERABLES Final Resul t [facility] [address] [place] [id number] * (ABNORMAL) CBC (05/10/2021 2:43 AM EDT) WBC Count 4.68 3.70 - 10.30 10*3/uL LAB HEMATOLOGY METHOD 05/10/2021 3:37 AM EDT [facility] RBC Count 3.64(L) 3.90 - 5.20 10*6/uL LAB HEMATOLOGY METHOD 05/10/2021 3:37 AM EDT [facility] HGB 10.1(L) 11.2 - 15.7 g/dL LAB HEMATOLOGY METHOD 05/10/2021 3:37 AM EDT [facility] HCT 30.6(L) 34.0 - 45.0 % LAB HEMATOLOGY METHOD 05/10/2021 3:37 AM EDT [facility] Platelet Count 204 155 - 369 10*3/uL LAB HEMATOLOGY METHOD 05/10/2021 3:37 AM EDT [facility] MCV 84 79 - 98 fL LAB HEMATOLOGY METHOD 05/10/2021 3:37 AM EDT [facility] MCH 27.7 26.0 - 32.0 pg LAB HEMATOLOGY METHOD 05/10/2021 3:37 AM EDT [facility] MCHC 33.0 30.7 - 35.5 g/dL LAB HEMATOLOGY METHOD 05/10/2021 3:37 AM EDT [facility] RDW 15.1(H) 11.5 - 14.5 % LAB HEMATOLOGY METHOD 05/10/2021 3:37 AM EDT [facility] MPV 10.0 8.8 - 12.5 fL LAB HEMATOLOGY METHOD 05/10/2021 3:37 AM EDT [facility] nRBC 0.0 <=0.0 per 100 WBCs LAB HEMATOLOGY METHOD 05/10/2021 3:37 AM EDT [facility] Blood Venous blood specimen / Unknown Venipuncture / Unknown 05/10/2021 2:43 AM EDT 05/10/2021 3:28 AM EDT Kenny Landry MD LAB BLOOD ORDERABLES Final Resul t Performing Organization Address City/[facility]/ZIP Co de Phone Number [facility] [address] [place] [address] * POCT glucose meter (05/10/2021 12:12 AM EDT) [facility] POCT Glucose 84 74 - 99 mg/dL 05/10/2021 12:15 AM EDT [facility] Comment:Accuracy of a glucos e result obtained from a capillary whole blood specimen relies upon adequate, non-compromised capillary blood flow. If the capillary glucose result is not consistent with the patient's clinical signs and symptoms, glucose testing should be repeated with either an arterial or venous sample on the glucometer or sent to the main labortory for testing. Comment 05/10/2021 12:15 AM EDT [facility] Credit Portfolio Manager ID Hetal Ashton 05/10/2021 12:15 AM EDT [facility] Device ID [id number] 05/10/2021 12:15 AM EDT [facility] Specimen Type POC Capillary 05/10/2021 12:15 AM EDT [facility] Blood Capillary blood specimen / Unknown 05/10/2021 12:12 AM EDT 05/10/2021 12:15 AM EDT us Kenny Landry MD LAB POINT OF CARE TE ST DOCKED DEVICE UNSOLICITED RESULTS Final Result Performing Organization Address City/[facility]/ZIP Co de Phone Number [facility] [address] [place] [address] * SARS-CoV-2 COVID-19/Influenza A,B (05/09/2021 5:18 PM EDT) [facility] SARS CoV-2/COVID-1 9 RNA PCR Result Not Detected Not Detected 05/09/2021 6:33 PM EDT [facility] Influenza A Virus PCR Result Not Detected Not Detected 05/09/2021 6:33 PM EDT [facility] Influenza B Virus PCR Result Not Detected Not Detected 05/09/2021 6:33 PM EDT [facility] Swab Nasopharyngeal structure / Unknown Non-blood Collection / Unknown 05/09/2021 5:18 PM EDT 05/09/2021 5:46 PM EDT [facility] - 05/09/2021 6:33 PM EDT This test was performed using [...] signs and symptoms consistent with COVID-19. us Kenny Landry MD LAB MICROBIOLOGY - GENERAL ORDER STACIA Final Result [facility] [address] [place] [address] * (ABNORMAL) CBC and Differential (05/09/2021 12:38 PM EDT) [facility] WBC Count 6.46 3.70 - 10.30 10*3/uL LAB HEMATOLOGY METHOD 05/09/2021 12:54 PM EDT [facility] RBC Count 4.30 3.90 - 5.20 10*6/uL LAB HEMATOLOGY METHOD 05/09/2021 12:54 PM EDT [facility] HGB 12.0 11.2 - 15.7 g/dL LAB HEMATOLOGY METHOD 05/09/2021 12:54 PM EDT [facility] HCT 36.1 34.0 - 45.0 % LAB HEMATOLOGY METHOD 05/09/2021 12:54 PM EDT [facility] Platelet Count 233 155 - 369 10*3/uL LAB HEMATOLOGY METHOD 05/09/2021 12:54 PM EDT [facility] MCV 84 79 - 98 fL LAB HEMATOLOGY METHOD 05/09/2021 12:54 PM EDT [facility] MCH 27.9 26.0 - 32.0 pg LAB HEMATOLOGY METHOD 05/09/2021 12:54 PM EDT [facility] MCHC 33.2 30.7 - 35.5 g/dL LAB HEMATOLOGY METHOD 05/09/2021 12:54 PM EDT [facility] RDW 15.2(H) 11.5 - 14.5 % LAB HEMATOLOGY METHOD 05/09/2021 12:54 PM EDT [facility] MPV 9.8 8.8 - 12.5 fL LAB HEMATOLOGY METHOD 05/09/2021 12:54 PM EDT [facility] nRBC 0.0 <=0.0 per 100 WBCs LAB HEMATOLOGY METHOD 05/09/2021 12:54 PM EDT [facility] Differential Type Automated LAB HEMATOLOGY METHOD 05/09/2021 12:54 PM EDT [facility] Neutrophils % 71.0 % LAB HEMATOLOGY METHOD 05/09/2021 12:54 PM EDT [facility] Lymphocytes % 22.0 % LAB HEMATOLOGY METHOD 05/09/2021 12:54 PM EDT [facility] Monocytes % 5.0 % LAB HEMATOLOGY METHOD 05/09/2021 12:54 PM EDT [facility] Eosinophils % 0.0 % LAB HEMATOLOGY METHOD 05/09/2021 12:54 PM EDT [facility] Basophils % 1.0 % LAB HEMATOLOGY METHOD 05/09/2021 12:54 PM EDT [facility] Immature Granulocytes % 1.0 % LAB HEMATOLOGY METHOD 05/09/2021 12:54 PM EDT [facility] Neutrophils Absolute 4.61 1.60 - 6.10 10*3/uL LAB HEMATOLOGY METHOD 05/09/2021 12:54 PM EDT [facility] Lymphocytes Absolute 1.42 1.20 - 3.90 10*3/uL LAB HEMATOLOGY METHOD 05/09/2021 12:54 PM EDT [facility] Monocytes Absolute 0.35 0.30 - 0.90 10*3/uL LAB HEMATOLOGY METHOD 05/09/2021 12:54 PM EDT [facility] Eosinophils Absolute 0.00 0.00 - 0.50 10*3/uL LAB HEMATOLOGY METHOD 05/09/2021 12:54 PM EDT [facility] Basophils Absolute 0.05 0.00 - 0.10 10*3/uL LAB HEMATOLOGY METHOD 05/09/2021 12:54 PM EDT [facility] Immature Granulocytes Absolute 0.03 0.00 - 0.06 10*3/uL LAB HEMATOLOGY METHOD 05/09/2021 12:54 PM EDT [facility] Blood Venous blood specimen / Unknown Venipuncture / Unknown 05/09/2021 12:38 PM EDT 05/09/2021 12:45 PM EDT Narrative [facility] - 05/09/2021 12:54 PM EDT Therapeutic decision making should be based on absolute values, rather than percentages. us Carter Donis MD LAB BLOOD ORDERABLES Final Resul t Performing Organization Address City/[facility] Co de Phone Number [facility] [address] [place] [address] * hCG qualitative (05/09/2021 12:37 PM EDT) Test Negative Negative 05/09/2021 1:33 PM EDT [facility] Blood Venous blood specimen / Unknown Venipuncture / Unknown 05/09/2021 12:37 PM EDT 05/09/2021 12:45 PM EDT Narrative [facility] - 05/09/2021 1:33 PM EDT Reference Range: Males and non- females: Negative. us Carter Donis MD LAB BLOOD ORDERABLES Final Resul t [facility] [address] [place] [address] * Lipase, Plasma (05/09/2021 12:37 PM EDT) Lipase, Plasma 19 19 - 63 U/L 05/09/2021 1:33 PM EDT [facility] Blood Venous blood specimen / Unknown Venipuncture / Unknown 05/09/2021 12:37 PM EDT 05/09/2021 12:45 PM EDT us Carter Donis MD LAB BLOOD ORDERABLES Final Resul t [facility] [address] [place] [address] * (ABNORMAL) Comprehensive Metabolic Panel, Plasma (05/09/2021 12:37 PM EDT) Glucose, Plasma 109(H) 74 - 99 mg/dL 05/09/2021 1:33 PM EDT [facility] BUN, Plasma 6(L) 7 - 21 mg/dL 05/09/2021 1:33 PM EDT [facility] Creatinine, Plasma 0.72 0.60 - 1.10 mg/dL 05/09/2021 1:33 PM EDT [facility] BUN/Creatinine Ratio 8 05/09/2021 1:33 PM EDT [facility] Sodium, Plasma 138 136 - 145 mmol/L 05/09/2021 1:33 PM EDT [facility] Potassium, Plasma 3.6(L) 3.7 - 4.8 mmol/L 05/09/2021 1:33 PM EDT [facility] Comment:Reference range for Serum potassium is 0.2 to 0.5 mmol/L higher than Plasma range. Chloride, Plasma 103 97 - 107 mmol/L 05/09/2021 1:33 PM EDT [facility] CO2, Plasma 21(L) 22 - 29 mmol/L 05/09/2021 1:33 PM EDT [facility] Anion Gap 14 6 - 16 mmol/L 05/09/2021 1:33 PM EDT [facility] Total Calcium, Plasma 9.4 8.9 - 10.2 mg/dL 05/09/2021 1:33 PM EDT [facility] Total Protein 7.0 6.3 - 7.9 g/dL 05/09/2021 1:33 PM EDT [facility] Albumin, Plasma 4.2 3.5 - 5.2 g/dL 05/09/2021 1:33 PM EDT [facility] AST, Plasma 26 11 - 32 U/L 05/09/2021 1:33 PM EDT [facility] ALT, Plasma 47(H) 8 - 33 U/L 05/09/2021 1:33 PM EDT [facility] Alkaline Phosphatase, Plasma 117(H) 35 - 104 U/L 05/09/2021 1:33 PM EDT [facility] Total Bilirubin, Plasma 0.3 0.2 - 1.1 mg/dL 05/09/2021 1:33 PM EDT [facility] eGFR >60 >60 mL/min/1.7 3m*2 05/09/2021 1:33 PM EDT [facility] Comment:eGFR = estimated GFR ; eGFR units = mL/min/1.73 sq meters Chronic Kidney Disease is considered if eGFR <60 mL/min/1.73 sq meters Kidney failure is considered if eGFR is <15 mL/min/1.73 sq meters. eGFR assumes steady state plasma creatinine concentration; not applicable if renal function is rapidly changing or patient is on dialysis. eGFR, if AFR/AM >60 >60 mL/min/1.7 3m*2 05/09/2021 1:33 PM EDT [facility] Comment:eGFR = estimated GFR ; [...] blood specimen / Unknown Venipuncture / Unknown 05/09/2021 12:37 PM EDT 05/09/2021 12:45 PM EDT us Carter Donis MD LAB BLOOD ORDERABLES Final Resul t [facility] [address] [place] [address] documented in this encounter Visit Diagnoses Diagnosis Dehydration Other chronic pain Chronic gastric erosion Gastroesophageal reflux disease without esophagitis Esophageal reflux Duodenal ulcer Recurrent pancreatitis Chronic pancreatitis Fibromyalgia Unspecified myalgia and myositis Chronic pancreatitis (CMS/HCC) Chronic pancreatitis Class 1 obesity in adult Bipolar depression (CMS/HCC) Bipolar I disorder, most recent episode (or current) depressed, unspecified Fibromyalgia Unspecified myalgia and myositis Tobacco abuse Tobacco use disorder Gastric erosions Other specified gastritis without mention of hemorrhage documented in this encounter Administered Medications Inactive Administered Medications - up to 3 most recent administrations Medication Order MAR Action Action Date Dose Rate Site acetaminophen (Tylenol) tablet 650 mg 650 mg, Oral, Every 6 hours PRN, Starting on Thu05/09/21 at 1711, Until Thu05/12/21 at 1328, Routine, mild pain Given 05/12/2021 5:15 AM EDT 650 mg Given 05/11/2021 8:05 PM EDT 650 mg Given 05/10/2021 8:04 PM EDT 650 mg docusate sodium (Colace) capsule 100 mg 100 mg, Oral, 2 times daily, First dose on Thu05/10/21 at 1045, Until Discontinued, Routine Given 05/11/2021 8:53 AM EDT 100 mg Given 05/10/2021 8:05 PM EDT 100 mg Given 05/10/2021 10:29 AM EDT 100 mg droperidol (Inapsine) injection 2.5 mg 2.5 mg, Intravenous, As needed, Starting on Thu05/09/21 at 1219, Until Thu05/10/21 at 0736, Routine, nausea, vomiting Given 05/09/2021 5:23 PM EDT 2.5 mg Given 05/09/2021 12:38 PM EDT 2.5 mg enoxaparin (Lovenox) syringe 40 mg 40 mg, Subcutaneous, Daily, First dose on Thu05/09/21 at 1700, Until Discontinued, Routine Given 05/11/2021 8:53 AM EDT 40 mg Left Lower Abdomen Given 05/10/2021 9:15 AM EDT 40 mg Le ft Lower Abdomen Given 05/09/2021 5:57 PM EDT 40 mg Le ft Lower Abdomen gi cocktail oral solution 30 mL 30 mL, Oral, Once, 1 dose, On Thu05/09/21 at 1240, STAT Given 05/09/2021 1:26 PM EDT 30 mL gi cocktail oral solution 30 mL 30 mL, Oral, As needed, Starting on Annabel 05/09/21 at 1712, Until 05/12/21 at 1328, Routine, cramping HYDROmorphone (Dilaudid) injection 0.25 mg 0.25 mg, Intravenous, Once as needed, 1 dose, Starting on Annabel 05/09/21 at 1220, Until Annabel 05/09/21 at 1239, STAT, moderate pain, severe pain Given 05/09/2021 12:39 PM EDT 0.25 mg lactated Ringer's infusion 1,000 mL 1,000 mL, Intravenous, Once, 1 dose, On Annabel 05/09/21 at 1230, STAT New Bag 05/09/2021 12:38 PM EDT 1,000 mL lactated Ringer's infusion 1,000 mL 1,000 mL, Intravenous, Once, 1 dose, On Annabel 05/09/21 at 1630, STAT New Bag 05/09/2021 4:31 PM EDT 1,000 mL lurasidone (Latuda) tablet 40 mg 40 mg, Oral, Daily with breakfast, First dose on Thu05/10/21 at 0800, Until Discontinued, Routine Given 05/12/2021 8:54 AM EDT 40 mg Given 05/11/2021 8:54 AM EDT 40 mg Given 05/10/2021 9:16 AM EDT 40 mg melatonin tablet 9 mg 9 mg, Oral, Nightly PRN, Starting on Annabel 05/09/21 at 1653, Until 05/12/21 at 1328, Routine, sleep Given 05/11/2021 8:06 PM EDT 9 mg Given 05/10/2021 8:05 PM EDT 9 mg ondansetron (Zofran) injection 4 mg 4 mg, Intravenous, Every 6 hours PRN, Starting on Annabel 05/09/21 at 1657, Until 05/11/21 at 0730, Routine, nausea, vomiting Given 05/11/2021 3:24 AM EDT 4 mg Given 05/10/2021 8:04 PM EDT 4 mg Given 05/10/2021 2:37 PM EDT 4 mg ondansetron ODT (Zofran-ODT) disintegrating tablet 4 mg 4 mg, Oral, Once, 1 dose, On Annabel 05/09/21 at 1350, STAT Given 05/09/2021 1:53 PM EDT 4 mg ondansetron ODT (Zofran-ODT) disintegrating tablet 4 mg 4 mg, Oral, Every 6 hours PRN, Starting on 05/11/21 at 0730, Until 05/12/21 at 1328, Routine, nausea, vomiting Given 05/12/2021 8:55 AM EDT 4 mg Given 05/11/2021 3:18 PM EDT 4 mg Given 05/11/2021 9:05 AM EDT 4 mg oxyCODONE (Roxicodone) immediate release tablet 15 mg 15 mg, Oral, Every 4 hours PRN, Starting on Annabel 05/09/21 at 1653, Until 05/11/21 at 1153, Routine, moderate pain Given 05/11/2021 9:04 AM EDT 15 mg Given 05/11/2021 5:18 AM EDT 15 mg Given 05/11/2021 12:39 AM EDT 15 mg oxyCODONE (Roxicodone) immediate release tablet 15 mg 15 mg, Oral, Every 6 hours PRN, Starting on 05/11/21 at 1200, Until 05/12/21 at 1328, Routine, moderate pain Given 05/12/2021 10:12 AM EDT 15 mg Given 05/12/2021 3:50 AM EDT 15 mg Given 05/11/2021 9:44 PM EDT 15 mg oxyCODONE (Roxicodone) immediate release tablet 5 mg 5 mg, Oral, Once, 1 dose, On Annabel 05/09/21 at 1315, STAT Given 05/09/2021 1:27 PM EDT 5 mg oxyCODONE (Roxicodone) immediate release tablet 5 mg 5 mg, Oral, Once, 1 dose, On Annabel 05/09/21 at 1350, STAT Given 05/09/2021 1:53 PM EDT 5 mg pancrelipase (Creon) 32666 units capsule 2 capsule, Oral, 3 times daily with meals, First dose on Annabel 05/09/21 at 1730, Until Discontinued, Routine Given 05/12/2021 8:54 AM EDT 2 capsules Given 05/11/2021 5:53 PM EDT 2 capsules Given 05/11/2021 1:13 PM EDT 2 capsules pantoprazole (Protonix) EC tablet 40 mg 40 mg, Oral, 2 times daily, First dose on Thu05/09/21 at 2100, Until Discontinued, Routine Given 05/12/2021 8:54 AM EDT 40 mg Given 05/11/2021 8:06 PM EDT 40 mg Given 05/11/2021 8:54 AM EDT 40 mg polyethylene glycol (Miralax) packet 17 g 17 g, Oral, Daily, First dose on Thu05/10/21 at 1045, Until Discontinued, Routine Given 05/11/2021 9:05 AM EDT 17 g Given 05/10/2021 10:29 AM EDT 17 g pregabalin (Lyrica) capsule 300 mg 300 mg, Oral, 2 times daily, First dose on Thu05/10/21 at 0900, Until Discontinued, Routine Given 05/12/2021 8:54 AM EDT 300 mg Given 05/11/2021 8:05 PM EDT 300 mg Given 05/11/2021 8:54 AM EDT 300 mg sodium chloride 0.9 % flush 10 mL 10 mL, Intravenous, Every 8 hours PRN, Starting on Thu05/09/21 at 1654, Until Thu05/12/21 at 1328, Routine, line care sodium chloride 0.9 % flush 10 mL 10 mL, Intravenous, As needed, Starting on Thu05/09/21 at 1654, Until Thu05/12/21 at 1328, Routine, line care sucralfate (Carafate) 1 GM/10ML suspension 1 g 1 g, Oral, Every 6 hours scheduled, First dose on Thu05/09/21 at 1800, Until Discontinued, Routine Given 05/12/2021 5:14 AM EDT 1 g Given 05/12/2021 12:21 AM EDT 1 g Given 05/11/2021 5:54 PM EDT 1 g venlafaxine XR (Effexor-XR) 24 hr capsule 150 mg 150 mg, Oral, Daily, First dose on Thu05/09/21 at 1655, Until Discontinued, Routine Given 05/12/2021 8:54 AM EDT 150 mg Given 05/11/2021 8:53 AM EDT 150 mg Given 05/10/2021 9:16 AM EDT 150 mg documented in this encounter Active and Recently Administered Medications Times are shown in EDT. Scheduled Medication Order 05/10/2021 05/11/2021 05/12/2021 docusate sodium (Colace) capsule 100 mg (CANCELED) 100 mg, Oral, 2 times daily, First dose on 05/10/21 at 1045, Until Discontinued, Routine 1029 (Given - Provider: Latricia Zheng)2004 (Given - Provider: Leta Sinclair) 0853 (Given - Provider: Ashely Squires, RN) enoxaparin (Lovenox) syringe 40 mg 40 mg, Subcutaneous, Daily, First dose on Annabel 05/09/21 at 1700, Until Discontinued, Routine 0915 (Given - Provider: Latricia Zheng) 0853 (Given - Provider: Ashely Squires, RN) 0853 (Not Given - Provider: Ashely Squires, RN - Reason: Patient/family refused) lurasidone (Latuda) tablet 40 mg 40 mg, Oral, Daily with breakfast, First dose on 05/10/21 at 0800, Until Discontinued, Routine 0916 (Given - Provider: Latricia Zheng) 0854 (Given - Provider: Ashely Squires, RN) 0854 (Given - Provider: Ashely Squires RN) magnesium citrate oral solution 296 mL 296 mL, Oral, Once, 1 dose, On 05/11/21 at 1300, Routine 1314 (Not Given - Provider: Ashely Squires, RN - Reason: Patient/family refused) pancrelipase (Creon) 03478 units capsule 2 capsule, Oral, 3 times daily with meals, First dose on Annabel 05/09/21 at 1730, Until Discontinued, Routine 0923 (Not Given - Provider: Latricia Zheng - Reason: Patient/family refused - Comment: not eating)1231 (Given - Provider: Latricia Zheng)1728 (Given - Provider: Francis Morales RN) 0853 (Given - Provider: Ashely Squires, RN)1313 (Given - Provider: Ashely Squires, RN)1753 (Given - Provider: Ashely Squires, RN) 0854 (Given - Provider: Ashely Squires RN)1230 (Canceled Entry - Provider: Automatic Discharge Provider - Comment: Automatically canceled at discontinue of medication order) pantoprazole (Protonix) EC tablet 40 mg 40 mg, Oral, 2 times daily, First dose on Thu05/09/21 at 2100, Until Discontinued, Routine 0916 (Given - Provider: Latricia Zheng)2004 (Given - Provider: Leta Sinclair) 0854 (Given - Provider: Ashely Squires, RN)2005 (Given - Provider: Leta Sinclair) 0854 (Given - Provider: Ashely Squires RN) polyethylene glycol (Miralax) packet 17 g 17 g, Oral, Daily, First dose on Thu05/10/21 at 1045, Until Discontinued, Routine 1029 (Given - Provider: Latricia Zheng) 0905 (Given - Provider: Ashely Squires, RN) 0855 (Not Given - Provider: Ashely Squires RN - Reason: Patient/family refused) pregabalin (Lyrica) capsule 300 mg 300 mg, Oral, 2 times daily, First dose on Thu05/10/21 at 0900, Until Discontinued, Routine 0916 (Given - Provider: Latricia Zheng)2003 (Given - Provider: Leta Sinclair) 0854 (Given - Provider: Ashely Squires, RN)2004 (Given - Provider: Leta Sinclair) 0854 (Given - Provider: Ashely Squires, CHANDNI) sucralfate (Carafate) 1 GM/10ML suspension 1 g 1 g, Oral, Every 6 hours scheduled, First dose on Thu05/09/21 at 1800, Until Discontinued, Routine 0639 (Given - Provider: Neel Purdy)1231 (Given - Provider: Latricia Zheng)1728 (Given - Provider: Francis Morales RN) 0028 (Given - Provider: Leta Sinclari)0515 (Given - Provider: Leta Sinclair)1313 (Given - Provider: Ashely Squires, RN)1754 (Given - Provider: Ashely Squires RN) 0021 (Given - Provider: Leta Sinclair)0514 (Given - Provider: Leta Sinclair)1200 (Canceled Entry - Provider: Automatic Discharge Provider - Comment: Automatically canceled at discontinue of medication order) venlafaxine XR (Effexor-XR) 24 hr capsule 150 mg 150 mg, Oral, Daily, First dose on Annabel 05/09/21 at 1655, Until Discontinued, Routine 0916 (Given - Provider: Latricia Zheng) 0853 (Given - Provider: Ashely Squires, RN) 0854 (Given - Provider: Ashely Squires, RN) PRN Medication Order 05/10/2021 05/11/2021 05/12/2021 acetaminophen (Tylenol) tablet 650 mg 650 mg, Oral, Every 6 hours PRN, Starting on Annabel 05/09/21 at 1711, Until 05/12/21 at 1328, Routine, mild pain 1231 (Given - Provider: Latricia Zheng)2003 (Given - Provider: Leta Sinclair) 2004 (Given - Provider: Leta Sinclair) 21 (Canceled Entry - Provider: Leta Sinclair)0515 (Given - Provider: Leta Sinclair) gi cocktail oral solution 30 mL 30 mL, Oral, As needed, Starting on Annabel 05/09/21 at 1712, Until 05/12/21 at 1328, Routine, cramping melatonin tablet 9 mg 9 mg, Oral, Nightly PRN, Starting on Annabel 05/09/21 at 1653, Until 05/12/21 at 1328, Routine, sleep 2004 (Given - Provider: Leta Sinclair) 2005 (Given - Provider: Leta Sinclair) ondansetron (Zofran) injection 4 mg (CANCELED) 4 mg, Intravenous, Every 6 hours PRN, Starting on Annabel 05/09/21 at 1657, Until 05/11/21 at 0730, Routine, nausea, vomiting 0002 (Given - Provider: Neel Purdy)0912 (Given - Provider: Latricia Zheng)1437 (Given - Provider: Latricia Zheng)2003 (Given - Provider: Leta Sinclair) 032 (Given - Provider: Leta Sinclair) ondansetron ODT (Zofran-ODT) disintegrating tablet 4 mg 4 mg, Oral, Every 6 hours PRN, Starting on 05/11/21 at 0730, Until 05/12/21 at 1328, Routine, nausea, vomiting 0905 (Given - Provider: Ashely Squires RN)1518 (Given - Provider: Ashely Squires, RN) 0855 (Given - Provider: Ashely Squires, RN) oxyCODONE (Roxicodone) immediate release tablet 15 mg (CANCELED) 15 mg, Oral, Every 4 hours PRN, Starting on Annabel 05/09/21 at 1653, Until 05/11/21 at 1153, Routine, moderate pain 0643 (Given - Provider: Neel Purdy)1029 (Given - Provider: Latricia June)1437 (Given - Provider: Latricia June)2004 (Given - Provider: Leta Sinclair) 0039 (Given - Provider: Leta Sinclair)0518 (Given - Provider: Leta Sinclair)0904 (Given - Provider: Ashely Squires RN) oxyCODONE (Roxicodone) immediate release tablet 15 mg 15 mg, Oral, Every 6 hours PRN, Starting on 05/11/21 at 1200, Until 05/12/21 at 1328, Routine, moderate pain 1517 (Given - Provider: Ashely Squires RN)2144 (Given - Provider: Leta Sinclair) 0350 (Given - Provider: Leta Sinclair)1012 (Given - Provider: Ashely Squires RN) sodium chloride 0.9 % flush 10 mL(Linked Group 1) 10 mL, Intravenous, Every 8 hours PRN, Starting on Annabel 05/09/21 at 1654, Until 05/12/21 at 1328, Routine, line care sodium chloride 0.9 % flush 10 mL(Linked Group 1) 10 mL, Intravenous, As needed, Starting on Annabel 05/09/21 at 1654, Until 05/12/21 at 1328, Routine, line care Linked Groups Order Group 1: Insert peripheral IV (COMPLETED) Once, On Annabel 05/09/21 at 1655, For 1 occurrence And Saline lock IV (COMPLETED) Once, On Annabel 05/09/21 at 1655, For 1 occurrence And sodium chloride 0.9 % flush 10 mLJump to med 10 mL, Intravenous, Every 8 hours PRN, Starting on Annabel 05/09/21 at 1654, Until 05/12/21 at 1328, Routine, line care And sodium chloride 0.9 % flush 10 mLJump to med 10 mL, Intravenous, As needed, Starting on Annabel 05/09/21 at 1654, Until 05/12/21 at 1328, Routine, line care documented in this encounter Additional Health Concerns Assessment Noted Time A fall risk assessment has been complete d for the patient 11/21/2020 2:30 PM EDT documented as of this encounter Care Teams Nursing Staff Development Coordinator Relationship Specialty Start Date End Date Elmo Escobar MD PCP - General 10/18/20 01/05/23 documented as of this encounter
--- OUTSIDE RECORDS SUMMARY | 2024-02-03 15:25 | XMS_ITS | Encounter Summary ---
Author Organization Healthcare Address [address] [place] [address] Care Team Providers Care Press Reader Name Role Phone Elmo Escobar MD Primary Care Provider [phone] Reason for Visit * Reason Comments Abdominal Pain * Auth/Cert Specialty Diagnoses / Procedures Referred By Contac t Referred To Contact Diagnoses Chronic pancreatitis, unspecified pancreatitis type (CMS/HCC) Robin Bailey MD [address] [place] [address] Phone: tel: fax: [facility] [address] [place] [address] Phone: tel: Referral ID Status Reason Start Date Expiration Date Visits Re quested Visits Authorized [id number] 1 1 Encounter Details Date Type Department Care Team (Latest Contact Info) Description 05/21/2021 8:23 PM EDT - 05/27/2021 1:15 PM EDT Hospital Encounter [facility] [address] [place] [address] Kayla Ramos MD [address] [place] [address] Robin Bailey MD [address] [place] [address] Da Holloway MD [address] [place] [id number] Epigastric pain (Primary Dx) Discharge Disposition: Home [...] have Coronavirus / COVID-19? No / Unsure 05/21/2021 8:22 PM EDT documented as of this encounter Last Filed Vital Signs Vital Sign Reading Time Taken Comments Blood Pressure 122/87 05/27/2021 8:15 AM EDT Pulse 90 05/27/2021 8:15 AM EDT Temperature 36.6 ??C (97.9 ??F) 05/27/2021 8:15 AM ED T Respiratory Rate 16 05/27/2021 8:15 AM EDT Oxygen Saturation 99% 05/27/2021 8:15 AM EDT Inhaled Oxygen Concentration - - Weight 93.3 kg (205 lb 11 oz) 05/22/2021 1:30 AM EDT Height 165 cm (5' 4.96 ) 05/22/2021 1:30 AM EDT Body Mass Index 34.27 05/22/2021 1:30 AM EDT documented in this encounter Discharge Instructions * Discharge Instructions* Da Holloway MD - 05/27/2021 11:44 AM EDT PLEASE FOLLOW UP WITH PRIMARY DOCTOR NEUBertin. * Attachments The following attachments cannot be sent through Care Everywhere. * 5 Steps for Eating Healthier (Monegasque) * Acute Pancreatitis, Discharge Instructions for (Monegasque) * Vistaril Oral Capsule 50 mg (Monegasque) * Narcan Nasal [place] 4 mg/0.1 mL (Monegasque) documented in this encounter Medications at Time [...] for nausea or vomiting for up to 10 days. 30 tablet 05/27/2021 06/07/19 22 polyethylene glycol (Miralax) 17 g packet Take 17 g by mouth 2 (two) times a day for 7 days. 14 packet 05/27/2021 06/04/19 22 senna-docusate sodium (Senokot-S) 8.6-50 MG tablet Take 1 tablet by mouth 1 (one) time each day. 30 tablet 05/27/2021 06/27/19 22 acetaminophen (Tylenol) 500 MG tablet Take [...] needed for severe pain. 12/21/19 22 pancrelipase, Wsn-Ddpj-Dips, (Creon) 89545-85910 units capsule Take 2 capsules by mouth [...] encounter Miscellaneous Notes * Progress Notes - Bernie Shaw RN - 05/27/2021 12:07 PM EDT Case Management Discharge Note Rosibel Gayle 35 y.o. female CSN: [id number] Admission: 05/21/2021 8:23 PM Primary Problem: Epigastric pain Primary Parcel Post Clerk: Primary Caregiver: (Self) Assistance Available at Discharge: Current Outpatient/Agency/Support Group: clinic(s) Availability of Care Givers (#Hours): No assistance needed Housing Circumstances-Z Codes: Housing Circumstances (select all that apply): Low Income (101-300% Federal Poverty Guidlines) - Z596 Patient Referred to Financial or Community Resources: Financial Resources: Other (Comment) (Not applicable) Community Resources: Other (Comment) (Not applicable) Discharge Facility/Level of Care Needs: Discharge Facility/Level of Care Needs: home Patient's Choice of Community Agency(s): Patient/Family Anticipated Services at Transition: Patient/Family Anticipated Services at Transition: none DME/Equipment Needed after Discharge: Assistive Devices: none Readmission Within the Last 30 Days: Readmission Within the Last 30 Days: unable to assess Medicare Documentation: n/a Follow-up: Elmo Escobar MD [address] [place] [address] Schedule an appointment as soon as possible for a visit in 7 day(s) Discharge Transportation: Transportation Anticipated: family or friend will provide Has discharge transport been arranged?: No Follow Up Transport: family Additional Comments: Pt refused [facility] enrollment. No discharge needs. Bernie Shaw RN * Discharge Summary - Da Holloway MD - 05/27/2021 11:46 AM EDT Hospitalization Admit Date/Time: 05/21/2021 8:23 PM Admitting Attending: Robin Bailey Discharge Date: 05/27/21 Discharge Attending Physician: Da Holloway Md PCP name and Address: Elmo Escobar MD [address] [place] [address] / [place] [address] Referring provider name and address: No referring provider defined for this encounter. Chief Concern, Brief History of Present Illness, and Hospital Course ??35 y.o.??female??with recurrent acute on chronic pancreatitis who presents to the [facility] ED for abdominal pain??with associated nausea and vomiting Patient had 8 visits in the last 1 month to [facility] for the above. CT abdomen done- without any clear cause of abdominal pain. High suspicion of opiate dependence. Addiction medicine consulted, pt continues to deny and have poor insight to her opiate dependence. #Acute on chronic epigastric pain of unclear etiology #High concern for Opiate dependence -- No CT or lab evidence of pancreatitis this admission -- received IV Ketamine - Oxycodone 15 mg Q6h PRN- taper schedule set by PCP- will follow - NO IV OPIATES and NO new SCRIPTs of OPIATES on discharge to patient- PATIENT HAS BEEN CLEARLY EXPLAINED - addiction medicine consulted - spoke with patient's PCP Dr Escobar on 05/24 -- ketamine discontinued prior to discharge -- Patient feeling better on discharge, tolerating diet, agreeable to go home. Patient reports she has 2 days of oral oxycodone left at home. She reports she has an appt setup on05/28 with PCP for followup ?? Constipation Bowel regimen ?? #Small nodules involving the right middle and lower lobes: -- Follow up as outpatient with PCP ?? #Right breast nodule - pt reports is known to her and she has had mamogram which revealed benign etiology ?? Chronic Bipolar disorder Fibromyalgia Gastric erosions Pancreatic insufficiency -continue latuda, venlafaxine, sucralfate, PPI, creon - vistaril PRN for anxiety ?? Surgeries and Procedures none Medication List .. acetaminophen 500 MG tablet Commonly known as: Tylenol Take 1,000 mg by mouth every 6 (six) hours if needed for mild pain. hydrOXYzine pamoate 50 MG capsule Commonly known as: Vistaril Take 1 capsule (50 mg total) by mouth every 6 (six) hours if needed for anxiety for up to 10 days. ketoconazole 2 % cream Commonly known as: NIZOral Apply 1 application topically 2 (two) times [...] for nausea or vomiting for up to 10 days. oxyCODONE 15 MG immediate release tablet Commonly known as: Roxicodone Take 15 mg by mouth every 6 (six) hours if needed for severe pain. pancrelipase (Hqe-Buxp-Ysok) [id number] units capsule Commonly known as: Creon Take 2 capsules by mouth 3 (three) times a day with meals. pantoprazole 40 MG EC tablet Commonly known as: Protonix Take 1 tablet (40 mg total) by mouth 2 (two) times a day. Do not crush, chew, or split. polyethylene glycol 17 g packet Commonly known as: Miralax Take 17 g by mouth 2 (two) times a day for 7 days. pregabalin 300 MG capsule Commonly known as: Lyrica Take 300 mg by mouth 2 (two) times a day. senna-docusate sodium 8.6-50 MG tablet Commonly known as: Senokot-S Take 1 tablet by mouth 1 (one) time each day. sucralfate 1 GM/10ML suspension Commonly known as: Carafate Take 10 mL (1 g total) by mouth 4 (four) times a day (with meals and nightly). venlafaxine XR 150 MG 24 hr capsule Commonly known as: Effoxor-XR Take 150 mg by mouth 1 (one) time each day. Where to Get Your Medications These medications were sent to [facility] [place] [id number] ?? hydrOXYzine pamoate 50 MG capsule ?? naloxone 4 mg/0.1 mL nasal spray ?? ondansetron ODT 4 MG disintegrating tablet ?? polyethylene glycol 17 g packet ?? senna-docusate sodium 8.6-50 MG tablet Information about where to get these medications is not yet available Ask your nurse or doctor about these medications ?? sucralfate 1 GM/10ML suspension Lab and Imaging: Results from last 7 days Lab Units 05/24/21 0248 WBC 10*3/uL 4.12 HEMOGLOBIN g/dL 10.5* HEMATOCRIT % 32.5* PLATELETS 10*3/uL 205 Results from last 7 days Lab Units 05/24/21 0248 SODIUM mmol/L 140 POTASSIUM mmol/L 4.2 CHLORIDE mmol/L 102 CO2 mmol/L 28 BUN mg/dL 11 CREATININE mg/dL 0.62 EGFR mL/min/1.73m*2 >60 EGFR, IF AFR/AM mL/min/1.73m*2 >60 GLUCOSE mg/dL 106* CALCIUM mg/dL 9.3 0 Lab Value Date/Time LIPASE 29 05/21/2021 2143 LIPASE 19 05/09/2021 1237 LIPASE 16 (L) 05/07/2021 1520 LIPASE 88 (H) 04/30/2021 0620 LIPASE 123 (H) 04/28/2021 0533 LIPASE 25 04/26/2021 1307 LIPASE 73 (H) 04/23/2021 1054 LIPASE 232 (H) 04/10/2021 1413 LIPASE 9 (L) 03/30/2021 0908 LIPASE 216 (H) 03/23/2021 1359 LIPASE 94 (H) 02/03/2021 1904 LIPASE 108 (H) 12/04/2020 1935 LIPASE 43 11/20/2020 0123 LIPASE 23 11/14/2020 2241 LIPASE 190 (H) 11/10/2020 1632 LIPASE 61 10/27/2020 0146 LIPASE 19 10/26/2020 0237 LIPASE 36 10/21/2020 1612 LIPASE 44 10/18/2020 1748 LIPASE 42 10/18/2020 1632 LIPASE 49 04/21/2016 2249 LIPASE 26 04/16/2016 1029 Imaging: Exam/Procedure: CT ABDOMEN PELVIS WO IV CONTRAST ordered by DA HOLLOWAY, [id number] ?? CLINICAL INDICATION: persistent abdominal pain ?? TECHNIQUE: ?? Multiple axial CT images were obtained from diaphragm to symphysis pubis without administration of IV contrast. Reformatted images in the coronal and sagittal planes were generated from the axial data set to facilitate diagnostic accuracy. ?? Total DLP (Dose-Length Product): 699.90 mGy.cm. Please note: The reported value represents the total of one or more individual components during the CT acquisition on this date and at this time, and as such, the same value may appear in more than one CT report depending on the interpreting/reporting physicians. ?? COMPARISON: 04/24/2021 and earlier ? ABDOMEN: ?? Lung bases:There is a 4 mm right middle lobe nodule-image 1, series 2. A 5 mm nodule involves the right lower lobe just above the diaphragm-image 12, series 2. ?? There is a 1.3 x 2.0 cm circumscribed right breast nodule involving the medial right breast at approximately 3:00, 10 cm from the nipple.. ?? Liver/biliary tree: No biliary dilatation. Gallbladder surgically absent. No suspicious nodules. ?? Spleen: Normal spleen size. ?? Pancreas: Normal caliber and attenuation. No ductal dilatation. No peripancreatic inflammation or fluid collections. No pancreatic calcifications. ?? Adrenals: Normal adrenal size. ?? Kidneys: No hydronephrosis, masses or stones. ?? Bowel: No dilated loops of large or small bowel. Normal appendix. ?? Lymph nodes: No enlarged mesenteric or retroperitoneal lymph nodes. ?? Mesentery: No free air or free fluid. ? PELVIS: ?? Bones: Vertebral body heights are maintained. No lytic or blastic lesions. ?? Vessels: Normal aortic caliber. ?? Bladder: Normal. Uterus is anteverted. Right adnexa measures approximately 2.1 x 2.6 cm. ?? IMPRESSION: ?? Small nodules involving the right middle and lower lobes. ?? Right breast nodule, stable from 04/16/2016. ? Normal noncontrast appearance of the pancreas. ?? Dictated by Francis Cunha on 05/22/2021 1:22 PM Signed by Francis Cunha on 05/22/2021 1:35 PM Discharge Diagnosis Medical Problems Active and Resolved Hospital Problems Hospital Bipolar depression (CMS/HCC) (Chronic) Fibromyalgia (Chronic) GERD (gastroesophageal reflux disease) (Chronic) Obesity (BMI 35.0-39.9 without comorbidity) (Chronic) Gastric erosions (Chronic) Chronic pain (Chronic) * (Principal) Epigastric pain Recurrent pancreatitis Chronic pancreatitis (CMS/HCC) Opiate dependence (CMS/HCC) Post Discharge Instructions Follow up with PCP Outpatient Follow-Up Future Appointments Date Time Provider Department Center 09/17/2021 3:40 PM DANIA Gunn [facility] Test Results Pending At Discharge Pertinent Physical Exam At Time of Discharge Physical Exam Vitals reviewed. Constitutional: Appearance: Normal appearance. She is well-developed. HENT: Head: Normocephalic and atraumatic. Right Ear: External ear normal. Left Ear: External ear normal. Nose: Nose normal. Mouth/Throat: Mouth: Mucous membranes are moist. Pharynx: Oropharynx is clear. Eyes: General: No scleral icterus. Conjunctiva/sclera: Conjunctivae normal. Neck: Thyroid: No thyromegaly. Vascular: No JVD. Cardiovascular: Rate and Rhythm: Normal rate and regular rhythm. Pulmonary: Effort: Pulmonary effort is normal. Breath sounds: Normal breath sounds. Abdominal: General: There is no distension. Palpations: Abdomen is soft. There is no mass. Tenderness: There is no abdominal tenderness. There is no guarding. Hernia: No hernia is present. Musculoskeletal: General: Normal range of motion. Cervical back: Neck supple. Right lower leg: No edema. Left lower leg: No edema. Lymphadenopathy: Cervical: No cervical adenopathy. Skin: General: Skin is warm. Coloration: Skin is not jaundiced or pale. Neurological: General: No focal deficit present. Mental Status: She is alert and oriented to person, place, and time. Gait: Gait normal. Psychiatric: Mood and Affect: Mood normal. Behavior: Behavior normal. Judgment: Judgment normal. Discharge Disposition/Condition Disposition: Home Condition: Stable (s/sx potential problems absent or manageable) I spent >30 minutes of patient care and instruction time in preparation for this discharge. * Progress Notes - Monae Corcoran - 05/27/2021 10:45 AM EDT [facility] HRR patient refused OSCAR/BTC program. * Nursing Note - Raiza Mauro RN - 05/26/2021 4:21 PM EDT No changes noted from my initial assessment this morning at 0800 hoursl * Nursing Note - Raiza Mauro RN - 05/26/2021 4:20 PM EDT No changes noted from my initial assessment this morning at 0800 hoursl * Progress Notes - Da Holloway MD - 05/26/2021 1:50 PM EDT Subjective Pt seen Notes 9/ abdominal pain again today-- continuous, started 4 pm, non radiating Nausea+ Poor oral intake Asking for increasing oxycodone dose to 15 mg Q4h PRN, and reports her PCP had her at a dosing of Q4h PRN. I assured patient that I have reviewed her PCP's clinic note from 05/16- which documents last scriptof oxycodone to 15 mg Q6h PRN She doesn't feel she is ready for discharge, as previously planned of discharge on 05/26 Review of Systems Constitutional: Negative for chills and fever. HENT: Negative for ear discharge, trouble swallowing and voice change. Eyes: Negative. Negative for discharge and visual disturbance. Respiratory: Negative for cough, chest tightness and shortness of breath. Cardiovascular: Negative for chest pain. Gastrointestinal: Positive for abdominal pain. Endocrine: Negative for polyuria. Genitourinary: Negative for difficulty urinating and hematuria. Musculoskeletal: Negative for joint swelling. Skin: Negative for rash. Neurological: Negative for seizures and light-headedness. Psychiatric/Behavioral: Negative for agitation and confusion. Objective Physical Exam Vitals reviewed. Constitutional: Appearance: Normal appearance. HENT: Head: Normocephalic and atraumatic. Nose: Nose normal. Eyes: Extraocular Movements: Extraocular movements intact. Pupils: Pupils are equal, round, and reactive to light. Cardiovascular: Rate and Rhythm: Normal rate and regular rhythm. Heart sounds: Normal heart sounds. Pulmonary: Effort: Pulmonary effort is normal. Abdominal: General: Abdomen is flat. Bowel sounds are normal. Palpations: Abdomen is soft. Musculoskeletal: General: Normal range of motion. Cervical back: Normal range of motion. Skin: General: Skin is warm and dry. Capillary Refill: Capillary refill takes less than 2 seconds. Neurological: General: No focal deficit present. Mental Status: She is alert. Psychiatric: Mood and Affect: Mood normal. Behavior: Behavior normal. Last Recorded Vitals Blood pressure 135/87, pulse (!) 125, temperature 36.6 ??C (97.9 ??F), resp. rate 22, height 1.65 m(5' 4.96 ), weight 93.3 kg (205 lb 11 oz), last menstrual period 05/09/2021, SpO2 95 %, not currently . Assessment/Plan Principal Problem: Epigastric pain Active Problems: Bipolar depression (CMS/HCC) Fibromyalgia Recurrent pancreatitis GERD (gastroesophageal reflux disease) Obesity (BMI 35.0-39.9 without comorbidity) Chronic pancreatitis (CMS/HCC) Gastric erosions Chronic pain Opiate dependence (CMS/HCC) 35 y.o. female with recurrent acute on chronic pancreatitis who presents to the [facility] ED for abdominal pain with associated nausea and vomiting #Acute on chronic epigastric pain #Opiate dependence -- No CT or lab evidence of pancreatitis this admission -- Cont IV ketamine - Oxycodone 15 mg Q6h PRN- taper schedule set by PCP- will follow - NO IV OPIATES- PATIENT HAS BEEN CLEARLY TOLD OF THE ABOVE - addiction medicine consulted -- High concern for opiate abuse - spoke with patient's PCP Dr Escobar on 05/24 -- increased dose of Ketamine on 05/26 given persistent abdominal pain Constipation Bowel regimen #Small nodules involving the right middle and lower lobes. Outpatient followup with pulmonology on discharge #Right breast nodule - pt reports is known to her and she has had mamogram which revealed benign etiology Chronic Bipolar disorder Fibromyalgia Gastric erosions Pancreatic insufficiency -continue latuda, venlafaxine, sucralfate, PPI, creon - vistaril PRN for anxiety I spent 25 minutes speaking with patient and evaluation * Nursing Note - Raiza Mauro RN - 05/26/2021 12:17 PM EDT Pt awakened when b/p checked and sat up in bed with increase of HR and RR noted, * Nursing Note - Raiza Mauro RN - 05/26/2021 12:12 PM EDT Pt sleeping with RR of 12 noted and snoring respirations. She has very short periods of apnea as well. I will notify MD of this as Ketamine dose given at 1131 hours was an increased dose of 15 mg. * Nursing Note - Raiza Mauro RN - 05/25/2021 6:32 PM EDT No changes noted from my morning note at 0800 hours. * Progress Notes - Da Holloway MD - 05/25/2021 12:33 PM EDT Subjective Pt seen Abdominal pain still 09/01 Requesting boost Review of Systems Constitutional: Negative for chills and fever. HENT: Negative for ear discharge, trouble swallowing and voice change. Eyes: Negative. Negative for discharge and visual disturbance. Respiratory: Negative for cough, chest tightness and shortness of breath. Cardiovascular: Negative for chest pain. Gastrointestinal: Positive for abdominal pain. Endocrine: Negative for polyuria. Genitourinary: Negative for difficulty urinating and hematuria. Musculoskeletal: Negative for joint swelling. Skin: Negative for rash. Neurological: Negative for seizures and light-headedness. Psychiatric/Behavioral: Negative for agitation and confusion. Objective Physical Exam Vitals reviewed. Constitutional: Appearance: Normal appearance. HENT: Head: Normocephalic and atraumatic. Nose: Nose normal. Eyes: Extraocular Movements: Extraocular movements intact. Pupils: Pupils are equal, round, and reactive to light. Cardiovascular: Rate and Rhythm: Normal rate and regular rhythm. Heart sounds: Normal heart sounds. Pulmonary: Effort: Pulmonary effort is normal. Abdominal: General: Abdomen is flat. Bowel sounds are normal. Palpations: Abdomen is soft. Musculoskeletal: General: Normal range of motion. Cervical back: Normal range of motion. Skin: General: Skin is warm and dry. Capillary Refill: Capillary refill takes less than 2 seconds. Neurological: General: No focal deficit present. Mental Status: She is alert. Psychiatric: Mood and Affect: Mood normal. Behavior: Behavior normal. Last Recorded Vitals Blood pressure (!) 138/95, pulse 84, temperature 36.6 ??C (97.8 ??F), temperature source Oral, resp. rate 16, height 1.65 m (5' 4.96 ), weight 93.3 kg (205 lb 11 oz), last menstrual period 05/09/2021, SpO2 99 %, not currently . Assessment/Plan Principal Problem: Epigastric pain Active Problems: Bipolar depression (CMS/HCC) Fibromyalgia Recurrent pancreatitis GERD (gastroesophageal reflux disease) Obesity (BMI 35.0-39.9 without comorbidity) Chronic pancreatitis (CMS/HCC) Gastric erosions Chronic pain Opiate dependence (CMS/HCC) 35 y.o. female with recurrent acute on chronic pancreatitis who presents to the [facility] ED for abdominal pain with associated nausea and vomiting #Acute on chronic epigastric pain #Opiate dependence -- No CT or lab evidence of pancreatitis this admission -- Cont IV ketamine - Oxycodone 15 mg Q6h PRN- taper schedule set by PCP- will follow - NO IV OPIATES- PATIENT HAS BEEN CLEARLY TOLD OF THE ABOVE - addiction medicine consulted -- High concern for opiate abuse - spoke with patient's PCP Dr Escobar on 05/24 Constipation Bowel regimen #Small nodules involving the right middle and lower lobes. Outpatient followup with pulmonology on discharge #Right breast nodule - pt reports is known to her and she has had mamogram which revealed benign etiology Chronic Bipolar disorder Fibromyalgia Gastric erosions Pancreatic insufficiency -continue latuda, venlafaxine, sucralfate, PPI, creon - vistaril PRN for anxiety I spent 25 minutes speaking with patient and evaluation * Nursing Note - Beltran West, RN - 05/24/2021 9:09 PM EDT 05/24/212039 Event/Notification Description Event Location [facility] Department and Room Number 426 Is the patient a DNR? No Type of Event IV/Labs Method of Notification Nurse (specify) Notified of patient requiring assistance with IV access. QA TEST ANALYST to floor. Site preps and aseptic technique utilized. 22g IV started in right wrist. Adequate flush and blood return noted. Patient tolerated with minimal discomfort. Primary nurse notified. * Progress Notes - Da Holloway MD - 05/24/2021 4:57 PM EDT Subjective Pt seen Abdominal pain 7/10 Mother at bedside Addiction consulted with the patient Patient today reports she has 2 days of supply of pain medications left Per patient and PCP note, PCP Dr Escobar is aiming to weekly titrate down her oxycodone. Plan patient is agreeable on is - NO IV opiates, and no new scripts of opiates on discharge She plans to leave on Thursday, to f/u with PCP on Thursday Pt states she had a bowel movement Review of Systems Constitutional: Negative for chills and fever. HENT: Negative for ear discharge, trouble swallowing and voice change. Eyes: Negative. Negative for discharge and visual disturbance. Respiratory: Negative for cough, chest tightness and shortness of breath. Cardiovascular: Negative for chest pain. Gastrointestinal: Positive for abdominal pain. Endocrine: Negative for polyuria. Genitourinary: Negative for difficulty urinating and hematuria. Musculoskeletal: Negative for joint swelling. Skin: Negative for rash. Neurological: Negative for seizures and light-headedness. Psychiatric/Behavioral: Negative for agitation and confusion. Objective Physical Exam Vitals reviewed. Constitutional: Appearance: Normal appearance. HENT: Head: Normocephalic and atraumatic. Nose: Nose normal. Eyes: Extraocular Movements: Extraocular movements intact. Pupils: Pupils are equal, round, and reactive to light. Cardiovascular: Rate and Rhythm: Normal rate and regular rhythm. Heart sounds: Normal heart sounds. Pulmonary: Effort: Pulmonary effort is normal. Abdominal: General: Abdomen is flat. Bowel sounds are normal. Palpations: Abdomen is soft. Musculoskeletal: General: Normal range of motion. Cervical back: Normal range of motion. Skin: General: Skin is warm and dry. Capillary Refill: Capillary refill takes less than 2 seconds. Neurological: General: No focal deficit present. Mental Status: She is alert. Psychiatric: Mood and Affect: Mood normal. Behavior: Behavior normal. Last Recorded Vitals Blood pressure (!) 155/99, pulse 82, temperature 36.8 ??C (98.3 ??F), resp. rate 16, height 1.65 m (5' 4.96 ), weight 93.3 kg (205 lb 11 oz), last menstrual period 05/09/2021, SpO2 98 %, not currently . Assessment/Plan Principal Problem: Epigastric pain Active Problems: Bipolar depression (CMS/HCC) Fibromyalgia Recurrent pancreatitis GERD (gastroesophageal reflux disease) Obesity (BMI 35.0-39.9 without comorbidity) Chronic pancreatitis (CMS/HCC) Gastric erosions Chronic pain Opiate dependence (CMS/HCC) 35 y.o. female with recurrent acute on chronic pancreatitis who presents to the [facility] ED for abdominal pain with associated nausea and vomiting #Acute on chronic epigastric pain -- No CT or lab evidence of pancreatitis this admission -- Cont IV ketamine - Oxycodone 15 mg Q6h PRN- taper schedule set by PCP- will follow - NO IV OPIATES- PATIENT HAS BEEN CLEARLY TOLD OF THE ABOVE - addiction medicine consulted -- High concern for opiate abuse - spoke with patient's PCP Dr Escobar on 05/24 Constipation Bowel regimen #Small nodules involving the right middle and lower lobes. Outpatient followup with pulmonology on discharge #Right breast nodule - pt reports is known to her and she has had mamogram which revealed benign etiology Chronic Bipolar disorder Fibromyalgia Gastric erosions Pancreatic insufficiency -continue latuda, venlafaxine, sucralfate, PPI, creon - vistaril PRN for anxiety I spent 35 minutes speaking with patient and evaluation * Progress Notes - Mora Ramirez RN - 05/24/2021 2:40 PM EDT Case Management Adult Progress Note Rosibel Gayle 35 y.o. female CSN: [id number] Admission: 05/21/2021 8:23 PM Primary Problem: Epigastric pain Additional Comments CM met with the team for morning huddle and discussed the patients plan of care. Per discussion is not ready for discharge today. Patient was seen by Addiction Medicine team today for recommendations and recommendations are in their note. No CM needs identified. CM will follow and assist with needs as appropriate. Mora Ramirez RN * Consults - Marcella Rojas APRN - 05/24/2021 11:17 AM EDTAssociated Order(s): Inpatient consult to Addiction Medicine Inpatient consult to Addiction Medicine Consult performed by: Marcella Rojas APRN Consult ordered by: Da Holloway MD Addiction Consult & Education Service Initial Assessment Chief Complaint: Presented to ED with abdominal pain and nausea/vomiting. Reports pain while at [facility] causing her to double over . Last 30 days multiple hospital admissions for same issue, though unremarkable labs and imaging. Patient claims she was given new diet instructions during her last admission. She acknowledges cheated on diet. Did not think it would be this painful. She states her primary care provider had continued 15 mg oxycodone every 6 hours for a week on 05/16/2021. [facility] had no appreciable pain. History of Present Illness: Rosibel Gayle is a 35 y.o. female with past medical history of recurrent acute on chronic pancreatitis, fibromyalgia (treated with Lyrica), anxiety, depression, GERD, HTN, arthritis, obesity, and nicotine dependence. Review of Systems: Review of Systems Constitutional: Positive for appetite change. Respiratory: Negative for cough and shortness of breath. Gastrointestinal: Positive for abdominal pain. Negative for diarrhea and vomiting. Genitourinary: Negative for difficulty urinating. Musculoskeletal: Positive for myalgias. Psychiatric/Behavioral: The patient is nervous/anxious. All other systems reviewed and are negative. Substance Use & Treatment History: Injection Practices & Complications: Denies any intravenous use Overdose: Denies Opioids: Prescription only - never abused Benzodiazepines: Claims RX only - no abuse Methamphetamine: Denies Marijuana: Age of first use teenager, was smoking 3-4 times per week in summer 2020, advised to stop by GI, states last smoked March 2021 EtOH: Denies heavy use, previously drank socially, stopped summer Remission and Recovery: Patient states has not required substance use treatment Tobacco Use: Age of first use 20, smokes 1/2 pack daily Active Problems: Patient Active Problem List Diagnosis ??? Class 1 obesity in adult ??? Bipolar depression (CMS/HCC) ??? Anxiety ??? Fibromyalgia ??? Tobacco abuse ??? Epigastric pain ??? Duodenal ulcer ??? Recurrent pancreatitis ??? Choledocholithiasis ??? Good tolerance for activity ??? GERD (gastroesophageal reflux disease) ??? Obesity (BMI 35.0-39.9 without comorbidity) ??? Lice infestation ??? Chronic pancreatitis (CMS/HCC) ??? Gastric erosions ??? Chronic pain ??? Opiate dependence (CMS/HCC) Past Medical History: Past Medical History: Diagnosis Date ??? Anxiety ??? Arthritis ??? Depression ??? Fibromyalgia ??? GERD (gastroesophageal reflux disease) ??? Hypertension ??? Nicotine dependence ??? Obesity ??? Pancreatitis Surgical History: Past Surgical History: Procedure Laterality Date ??? CHOLECYSTECTOMY ??? ERCP ??? ESOPHAGOGASTRODUODENOSCOPY ??? HAND SURGERY Allergies: Morphine and related and Tramadol Social History: Lives in [facility] Has 3 children Legal History: Denies Trauma/Abuse: Denies Family History: Family History Problem Relation Name Age of Onset ??? Hypertension Mother ??? No Known Problems Father Otherwise reviewed and noncontributory. Home Medications: Creon, Protonix, Lyrica, Oxycodone, Effexorm Carafate Relevent Data Reviewed: eKASPER: 05/22/2020 - 05/22/2021 Conirms Lyrica RX monthly from 05/2020 through 04/25/2021 Multiple opioid RX - Last from PCP on 05/16/2021 Labs: Labs in last 18 hours CBC WBC 4.12 Hb 10.5 (L) Plt 205 Hct 32.5 (L) INR ??, PTT ?? BMP Na 140 Cl 102 BUN 11 Glu 106 (H) K 4.2 Co2 28 Cr 0.62 Ca 9.3 iCa ?? Mg ??, Phos ?? LFT AST 17 AlkPhos 98 T Prot 6.0 (L) ALK 26 Bili <0.2 (L) Alb ?? D.Bili ?? No results found for: HAV, HCV No results found for: HIV No results found for: NGOPCR No results found for: CHLAMYDIADNA No results found for: SYPHT September 2020 - Negative for HAV/HBV,HCV - UDS: Aminoclonazepam Date Value Ref Range Status 04/23/2021 >1,000 (H) <20 ng/mL Final Alprazolam Date Value Ref Range Status 04/23/2021 <10 <10 ng/mL Final Alpha OH Alprazolam Date Value Ref Range Status 04/23/2021 <20 <20 ng/mL Final Alpha OH Midazolam Date Value Ref Range Status 04/23/2021 <20 <20 ng/mL Final Alpha OH Triazolam Date Value Ref Range Status 04/23/2021 <20 <20 ng/mL Final Benzoylecgonine Date Value Ref Range Status 04/23/2021 <50 <50 ng/mL Final Buprenorphine Date Value Ref Range Status 04/23/2021 <10 <10 ng/mL Final Butalbital Date Value Ref Range Status 04/23/2021 <50 <50 ng/mL Final Clonazepam Date Value Ref Range Status 04/23/2021 32 (H) <10 ng/mL Final Desmethyl Tramadol Date Value Ref Range Status 05/21/2021 <50 <50 ng/mL Final Fentanyl Screen Urine Date Value Ref Range Status 05/21/2021 Negative Negative Final Hydrocodone Date Value Ref Range Status 05/21/2021 <50 <50 ng/mL Final Lorazepam Date Value Ref Range Status 04/23/2021 <20 <20 ng/mL Final Meperidine Date Value Ref Range Status 05/21/2021 <50 <50 ng/mL Final Morphine Date Value Ref Range Status 05/21/2021 <50 <50 ng/mL Final Methylphenidate Date Value Ref Range Status 04/23/2021 <50 <50 ng/mL Final Norfentanyl Date Value Ref Range Status 04/23/2021 <2 <2 ng/mL Final Normeperidine Date Value Ref Range Status 05/21/2021 <50 <50 ng/mL Final Nordiazepam Date Value Ref Range Status 04/23/2021 <20 <20 ng/mL Final Oxycodone Screen Urine Date Value Ref Range Status 05/21/2021 Negative Final Presumptive positive. Confirmation by LC-MS/MS to follow. Oxycodone Date Value Ref Range Status 05/21/2021 >1,000 (H) <50 ng/mL Final Oxymorphone Date Value Ref Range Status 05/21/2021 <50 <50 ng/mL Final Oxazepam Date Value Ref Range Status 04/23/2021 <20 <20 ng/mL Final Phenobarbital Date Value Ref Range Status 04/23/2021 <50 <50 ng/mL Final Secobarbital Date Value Ref Range Status 04/23/2021 <50 <50 ng/mL Final Temazepam Date Value Ref Range Status 04/23/2021 <20 <20 ng/mL Final 9 Carboxy THC Date Value Ref Range Status 05/21/2021 <10 <10 ng/mL Final Tramadol Date Value Ref Range Status 05/21/2021 <50 <50 ng/mL Final No results found for: UDSCF Pain Management Panel Pain Management Panel Latest Ref Rng & Units 05/21/2021 04/23/2021 AMPHETAMINE <50 ng/mL - <50 BARBITURATE SCRN UR Negative Negative - BENZODIAZEPINE SCREEN, URINE Negative Negative - FENTANYL URINE Negative Negative - METHADONE SCREEN, URINE Negative Negative - MOR GLU 1 (MORPHINE GLUCURONIDE) <50 ng/mL <50 <50 EKG: Encounter Date: 05/21/21 EKG now - STAT (adult) Result Value EKG DIAGNOSIS CLASS Abnormal Ventricular Rate 106 Atrial Rate 106 OK Interval 118 QRSD Interval 80 QT Interval 348 QTC Interval 462 P Bland 23 R Bland 20 T Wave Bland 28 Diagnosis Sinus tachycardia Diagnosis Cannot rule out Diagnosis Anterior infarct Diagnosis , age undetermined Diagnosis Abnormal ECG Diagnosis Confirmed by Jennie Morales ([id number]) on 05/22/2021 7:39:55 PM *Note: Due to a large number of results and/or encounters for the requested time period, some results have not been displayed. A complete set of results can be found in Results Review. Physical Exam: Physical Exam Vitals reviewed. Constitutional: General: She is not in acute distress. Appearance: She is obese. She is not ill-appearing. HENT: Head: Normocephalic and atraumatic. Eyes: Comments: Left eye drifts midline Cardiovascular: Rate and Rhythm: Normal rate and regular rhythm. Pulmonary: Effort: Pulmonary effort is normal. Breath sounds: Normal breath sounds. Abdominal: General: Bowel sounds are normal. Palpations: Abdomen is soft. Tenderness: There is abdominal tenderness. Skin: General: Skin is warm and dry. Neurological: Mental Status: She is alert and oriented to person, place, and time. Visit Vitals BP (!) 141/91 Pulse 81 Temp 36.6 ??C (97.9 ??F) Resp 16 Ht 1.65 m (5' 4.96 ) Wt 93.3 kg (205 lb 11 oz) LMP 05/09/2021 (Approximate) SpO2 96% BMI 34.27 kg/m?? OB Status Having periods Smoking Status Current Every Day Smoker BSA 2.07 m?? COWS: 0 DSM Substance Use Disorder criteria - past 12 months : Failure to fulfill responsibilities no Use in hazardous situations no Cravings Yes - due to pain Social/interpersonal problems no Using larger amounts or longer than intended no Cannot cut down No - unless in pain Extensive time spent in getting/using/recovering no Given up or decrease other important parts of life no Ongoing use despite psychological/physical problems no Presence of tolerance no Presence of withdrawal Yes Total 04/05 DOES NOT MEET CRITERIA FOR OPIOID USE DISORDER Patient willing to acknowledge opioid dependence due to 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 Assessment: Rosibel Gayle is a 35 y.o. female with past medical history of recurrent acute on chronic pancreatitis, fibromyalgia (treated with Lyrica), anxiety, depression, GERD, HTN, arthritis, obesity, and nicotine dependence. Discussed ramifications of middle or intermediate school principal opioid prescription/ use for pain. Physical dependence a natural side effect of continued need for opioid pain medication. Patient expresses concern that her painwill cease to be addressed. Reassured patient she has several options regarding her pain and opioidmedication: 1) Patient claims she was referred to Pain Management at [facility] one year ago. She did not complete the evaluation because I was afraid of a foregin obejct in my body. Won't I become addicted to Dilaudid.? Advised patient she is already dependent on opioids. If she chooses to follow up with pain pump - the medication strength can be titrated up or down as needed. The shorter term she requires this modality the better. 2) Advised patient her PCP may not be willing to prescribe opioids longterm. My doctor already had a plan to taper my medication. Strongly encouraged patient to discuss her options with her PCP. She acknowledges that she has enough oxycodone at her house for two days since her PCP gave her a 7 day prescription on 05/16 and she was admitted to this hospital 05/21/2021. She has an appointment scheduled with her PCP for May 28, 2021. 3) Methadone is a longer acting opioid agonist and might provide better middle or intermediate school principal relief. Patient is willing to ask her PCP if he is willing to prescribe methadone for her pain. Patient believes if she follows the diet laid out at her last admission she will no longer require opioid pain medication. Advised patient her other option for methadone would be a methadone clinic. This would require daily dosing at a clinic. Patient states she is not interested in daily dosing of methadone. 4) Educated patient on the use of buprenorphine/naloxone for opioid dependence and opioid use disorders. Reviewed mechanism of action of buprenorphine in contrast with mechanism of action of full agonists. Advised patient she would not be able to stay on opioid pain medication and buprenorphine outside the hospital setting. Reassured patient that buprenorphine has analgesic effect - unable to promise patient it would relieve all of her pain. Patient states she will consider this option and discuss with PCP> Advised patient that her objective of no pain is likely not going to be accomplished. She will benefit by adjusting her view to tolerable pain and utilizing other methods in addition to medication totreat that pain. She reports she actually had three days this week with no pain. She is very hopeful that she will only need opioid pain medication for a short period of time as she adjusts to the necessary changes in her diet. Encouraged patient to discuss with her PCP or Gastroenterology how she can manage the pain at home if she does make diet mistakes rather than return to hospital. Patient missed her GI appointment 05/01/2021 and is rescheduled for 09/17/2021. Plan/Recommendations: Change 15 mg oxycodone dose to every 6 hours to comply with her outpatient dosing. Continue ketamine wean as appropriate prior to discharge. Continue current Lyrica dose as it complies with outpatient dose. Since patient has two days of oxycodone at home, she can be discharged Thursday without a need for anRX of oxycodone. She has a follow up appointment with PCP 05/28/2021: - Recommend NRT while hospitalized. If you have any questions, please page or secure chat a member of the [facility] team. Thank you for the opportunity to participate in the care of this patient. Marcella Rojas APRN * Progress Notes - Da Holloway MD - 05/23/2021 4:48 PM EDT Physician Clarification Please review the following and provide your response below. Please provide additional documentation in the patient's medical record supportive of your documented diagnosis. CDI CLINICAL VALIDATION: Diagnosis was ruled out and amended documentation provided in the medical record This documentation will become part of the patient's medical record. * Progress Notes - Da Holloway MD - 05/23/2021 4:32 PM EDT Subjective Patient still endorsed 9/10 abdominal pain despite 0.5 mg of IV Dilaudid dosing overnight She reports she hasn't had a bowel movement Denies fever/Chills Denies Chest pain/urinary discomfort/Shortness of breath She is overall feeling well I discussed and provided her the results of the CT abdomen I addressed with her that IV dilaudid is not the right management, as she doesn't have lab or radiographic evidence of pancreatitis on this admission I advised her that I recommend stopping IV dilaudid and focus on non-opiate modalities of pain. We discussed use of ketamine as we take of IV dilaudid I have also advised her against giving her a script of oral opiates on discharge We discussed that patient has had 8 admission in last one month where she was prescribed oral opiates on discharge I politely addressed my concerns for high doses of opiates causing increasing tolerance to doses and inadequate analgesia Review of Systems Constitutional: Negative for chills and fever. HENT: Negative for ear discharge, trouble swallowing and voice change. Eyes: Negative. Negative for discharge and visual disturbance. Respiratory: Negative for cough, chest tightness and shortness of breath. Cardiovascular: Negative for chest pain. Gastrointestinal: Positive for abdominal pain. Endocrine: Negative for polyuria. Genitourinary: Negative for difficulty urinating and hematuria. Musculoskeletal: Negative for joint swelling. Skin: Negative for rash. Neurological: Negative for seizures and light-headedness. Psychiatric/Behavioral: Negative for agitation and confusion. Objective Physical Exam Vitals reviewed. Constitutional: Appearance: Normal appearance. HENT: Head: Normocephalic and atraumatic. Nose: Nose normal. Eyes: Extraocular Movements: Extraocular movements intact. Pupils: Pupils are equal, round, and reactive to light. Cardiovascular: Rate and Rhythm: Normal rate and regular rhythm. Heart sounds: Normal heart sounds. Pulmonary: Effort: Pulmonary effort is normal. Abdominal: General: Abdomen is flat. Bowel sounds are normal. Palpations: Abdomen is soft. Musculoskeletal: General: Normal range of motion. Cervical back: Normal range of motion. Skin: General: Skin is warm and dry. Capillary Refill: Capillary refill takes less than 2 seconds. Neurological: General: No focal deficit present. Mental Status: She is alert. Psychiatric: Mood and Affect: Mood normal. Behavior: Behavior normal. Last Recorded Vitals Blood pressure 125/86, pulse 87, temperature 36.8 ??C (98.2 ??F), resp. rate 16, height 1.65 m (5' 4.96 ), weight 93.3 kg (205 lb 11 oz), last menstrual period 05/09/2021, SpO2 95 %, not currently . Assessment/Plan Principal Problem: Acute on chronic pancreatitis (CMS/HCC) Active Problems: Bipolar depression (CMS/HCC) Fibromyalgia Recurrent pancreatitis GERD (gastroesophageal reflux disease) Obesity (BMI 35.0-39.9 without comorbidity) Chronic pancreatitis (CMS/HCC) Gastric erosions Chronic pain Opiate dependence (CMS/HCC) 35 y.o. female with recurrent acute on chronic pancreatitis who presents to the [facility] ED for abdominal pain with associated nausea and vomiting #Acute on chronic epigastric pain -- No CT or lab evidence of pancreatitis this admission -- Discontinue IV dilauid - IV ketamine ordered - will continue discussing titrating oral opiates -- Discussed case with multiple specalities on 05/23-- informed GI, chronic pain team, palliative care team and Addiction team -- Recent ENDOSCOPY results reviewed from 04/16 -- Addiction team will see patient tomorrow -- Significant concern for Opiate dependence at this time -- NO IV Pain medications -- attempted to obtain records from PCP office, left personal phone number with PCP office to speakwith PCP -- discussed care of patient with nurse documentation manager Constipation Bowel regimen, but patient refusing medications #Small nodules involving the right middle and lower lobes. Outpatient followup with pulmonology on discharge #Right breast nodule - pt reports is known to her and she has had mamogram which revealed benign etiology Chronic Bipolar disorder Fibromyalgia Gastric erosions Pancreatic insufficiency -continue latuda, venlafaxine, sucralfate, PPI, creon I spent 120 minutes managing patient including counselling patient and discussing with multiple specialities * Consults - Marin Ng RN - 05/23/2021 3:51 PM EDTAssociated Order(s): IP CONSULT TO PALLIATIVE CARE Spoke with Palliative Lead Business Analyst who agrees with Addiction Medicine consult. Please see this excerpt from Dr. Calhoun's note from previous admission For future admissions please refer to this note and the palliative care note dated 03/29/21 as a reference. The palliative care team does not have the resources to actively assist in the management ofchronic pain patients who do not also have a terminal diagnosis. We will of course be available to assist with telephone consultation for Ms. Gayle in the future but will not be able to evaluate her chronic pain as an inpatient on future admissions. Palliative team will sign off. * Progress Notes - Mora Ramirez RN - 05/22/2021 3:30 PM EDT Case Management Adult Initial Progress Note Rosibel Gayle 35 y.o. female CSN: [id number] Admission: 05/21/2021 8:23 PM Primary Problem: Acute on chronic pancreatitis (CMS/HCC) Calciminer reviewed chart and spoke with Ms. Gayle to complete this Initial Case Management Assessment. PCP: Elmo Escobar MD Emergency Contact: Extended Emergency Contact Information Primary Emergency Contact: Asiya Flores Address: [address] [place], [place] [address] [facility] Mobile Relation: Mother Insurance: Primary Visit Coverage Payer Plan Sponsor Code Group Number Group Name ANTHEM MEDICAID ANTH MEDICAID [id number] Primary Visit Coverage Subscriber Subscriber ID Subscriber Name Subscriber SSN Subscriber Address [id number] ROSIBEL GAYLE [id number] [facility] [place] [address] Patient information: Primary Caregiver: (Self) Accompanied by/Relationship: Patient did not have visitors during interview Daily Living Activities: Functional Status: Independent Living Arrangements: Children,Spouse/Significant other,Parent/Gaurdian,Other (Comment) (Patient reported that she lives with her fiblas', her mother and 2 children.) Type of Residence: Private residence,Single Level (Mobile home; Patient verified that her living address is correct in [facility] [address] [facility] [address] Assistive Devices: none Current DME Provider: Not applicable Income Information: Income Source: Unemployed (Patient reported she does not have an income as she is a [id number] mom) Income/Expense Information: Income meets expenses Current Resources Utilized: [employer] Housing Circumstances-Z Codes: Housing Circumstances (select all that apply): Low Income (101-300% Federal Poverty Guidlines) - Z596 Patient Referred to: Financial Resources: Other (Comment) (Not applicable) Community Resources: Other (Comment) (Not applicable) Anticipated Discharge Date: TBD Patient's Discharge Goal: Patient/Family Anticipates Transition to: home with family Assistance Available at Discharge: Current Outpatient/Agency/Support Group: clinic(s) Availability of Care Givers (#Hours): No assistance needed Discharge Transport: Transportation Anticipated: family or friend will provide Follow Up Transport: Transportation Needed to Follow up Appoinments: Self Home Health / Home Infusion / Outpatient Dialysis Services: None reported. DME: Assistive Devices: none Living Will/Advance Directive/Power of Hand Inserter Operator /Guardian: Unable to assess: No Have you reviewed your Advance Directive and is it valid for this stay?: No Advance Directive: Patient would not like information Information Provided on Healthcare Directives: No Pre-existing DNR/DNI Order: No Patient Requests Assistance: No Additional Comments: Ms. Gayle reported to that she lives with her 2 children, her mother and her fiblas'. She statedthat she does not have an income however her mother and son receive [employer] benefit and her fiance' works at [employer]. She verified that her PCP is Dr. Elmo Escobar and she uses [facility] in [place]. She reported she has received 2 Moderna vaccines and a booster([employer]). She verified her insurance is correct in [employer]. Mroa Ramirez RN * Consults - Dominga Arreguin - 05/22/2021 12:40 PM EDT Pastoral Care Note Sales And Support Center Agent offered pastoral care to patient. Patient spoke about past few days. Sales And Support Center Agent will follow up as needed. Referral From: Sales And Support Center Agent initiated Pastoral Care Provided For: Patient Patient Profile: Consult Reasons: Initial visit Spiritual Assessment: Spiritual Needs: Emotional support Interventions: Interventions Provided: Emotional support Pastoral Care Outcomes: Patient Outcomes: Is knowledgeable about Title Insurance Sales Representative Services * Consults - Marybeth Wade - 05/22/2021 10:52 AM EDT Adult Nutrition Evaluation Note Rosibel Gayle 35 y.o. female CSN: [id number] Room/Bed 426/426A Nutrition evaluation type: assessment Reason for evaluation: nurse consult : MST of 3, burn/PI/nonhealing wound Hospital course: 35 yo F admitted on 05/21 with recurrent intractable abdominal pain w/ N/V 2/2 chronic pancreatitis suspected from previous alcohol use Medical plans: pending CT abd this afternoon Past medical/ surgical history: Past Medical History: Diagnosis Date Anxiety Arthritis Depression Fibromyalgia GERD (gastroesophageal reflux disease) Hypertension Nicotine dependence Obesity Pancreatitis Past Surgical History: Procedure Laterality Date CHOLECYSTECTOMY ERCP ESOPHAGOGASTRODUODENOSCOPY HAND SURGERY Additional comments: 05/22: visit to Pt after lunch. Viewed meal tray in hallway as taken out- ate 3/4 hamburger. When asked, Pt reports eating only 15% breakfast and lunch today, Regular diet. Pt denies N/V/D/C; +decreased appetite/intakes [employer] related to pain. Denies chewing/swallowing issues. Reports chronic intermittent pain since removal of pancreatic stone years ago. No food allergies. Reports 20 lb wt loss past 2 months related to pancreatic/abdominal pain, fear of eating which causes further pain. Reports UBW 200 lb. Current hospital wt 205 lb with admission wt hx 201-224 lb. Vitals and Basic Assessment: BP: 128/88 Temp: 36.3 ??C (97.3 ??F) Oxygen Therapy: None (Room air) [place] Coma Scale Score: 15 Scott Scale Score: 20 Skin: +Pretibial Wound Right, Round, approx 3in across. Patient states it is a fungal infection. +Right PIV Allergies: no known food allergies Medications: acetaminophen, 1,000 mg, Oral, q6h ION ondansetron, 4 mg, Intravenous, TID AC pancrelipase (Gdq-Tsvz-Kxyd), 2 capsule, Oral, TID with meals pantoprazole, 40 mg, Oral, BID polyethylene glycol, 17 g, Oral, Daily senna-docusate, 2 tablet, Oral, Nightly sucralfate, 1 g, Oral, q6h INO venlafaxine XR, 150 mg, Oral, Daily lactated Ringer's, 100 mL/hr, Last Rate: 100 mL/hr (05/22/21 0152) PRN: HYDROmorphone, melatonin, ondansetron ODT, oxyCODONE, promethazine Meds were reviewed: Yes Labs: Lab Results Component Value Date LIPASE 29 05/21/2021 No results found for: AMYLASE CBC reviewed Lab Results Component Value Date GLUCOSE 96 05/21/2021 CALCIUM 8.9 05/21/2021 NA 139 05/21/2021 K 3.8 05/21/2021 CO2 24 05/21/2021 CL 104 05/21/2021 BUN 6 (L) 05/21/2021 CREATININE 0.56 (L) 05/21/2021 Lab Results Component Value Date CALCIUM 8.9 05/21/2021 PHOS 4.9 (H) 05/10/2021 Lab Results Component Value Date ALBUMIN 3.6 05/21/2021 Albumin is a negative acute phase respondent and not a good indicator of nutritional status. Anthropometrics: Admit Height (CM) 165 cm (5' 4.96 ) Admit Weight (KG) 93.3 kg (205 lb 11 oz) Current Weight (KG) 93.3 kg (205 lb 11 oz) BMI 34.27 kg/m?? Weight Evaluation Class I obesity IBW (KG) 57 kg (125 lb) Percent IBW 164% Adjusted Weight (KG) 66kg Weight History Wt Readings from Last 10 Encounters: 05/22/21 93.3 kg (205 lb 11 oz) 05/09/21 94.3 kg (208 lb) 04/30/21 94.3 kg (208 lb) 04/28/21 94.3 kg (208 lb) 04/23/21 94.4 kg (208 lb 1.8 oz) 04/10/21 91.3 kg (201 lb 4.5 oz) 03/23/21 95.7 kg (210 lb 15.7 oz) 02/04/21 102 kg (224 lb 3.3 oz) 12/04/20 95.3 kg (210 lb) 12/04/20 99.4 kg (219 lb 2.2 oz) Reported UBW: 200 lb Additional Comments Current weight is consistent with prior wts to Feb 2021; relatively stable weight Estimated Needs: Provided Based On Weight Used Kcal/day 1331-2907 27-32 kcal/kg ABW 66 kg Protein/day 79-92 1.2-1.4 ABW Fluid/day 1 ml/d or per MD discretion Additional Comments MSJ bmr: 1635 +1.2,1.2 =2354 - 250 obese = 2104 Current Nutrition Intake: Current Diet Order Regular Avg PO Intakes per RN Flowsheets None recorded Oral Nutrition Supplements - Diet EDU Provided Will monitor need throughout LOS Amish/ Cultural Needs Ethnic needs not identified at this time Additional Comments Nutrition Focused Physical Exam: Physical exam performed on 05/22: Temples (muscles): None Clavicle (muscle): None Shoulder (muscle): None Interosseous (muscle): None Thigh (muscle): None Calf (muscle): None Orbital (fat): None Triceps (fat): None Assessment of Malnutrition: Present on Admission: No Nutrition Problem: Altered GI function related to recurrent pancreatitis as evidenced by admit w/abdominal pain, N/V. Status of Nutrition Diagnosis: New Nutrition Interventions and Recommendations: - Adjusting to low fat d/t chronic pancreatitis - Will monitor PO intakes and need for - MVI with mineral daily. Nutrition Monitoring and Goals: - Will monitor PO intake, weight status, lab results, GI tolerance, and skin integrity. - Pt will tolerate >75% avg of meal intakes. Discharge Planning: RD to monitor for nutrition related discharge needs. Acuity Level: 1 Marybeth Wade RDN, LD Cosigned by Farida Eason RD at 05/22/2021 2:31 PM EDT Associated attestation - Farida Eason RD - 05/22/2021 2:[address] reviewed note and EMR. Pt is well known to this RD team due to readmissions. Will monitor PO intakes, if inadequate can consider adding boost breeze d/t lower fat content RD to note that pt with documented 8.5% wt loss x ~3 months -severe if accurate. RD team to monitorwt loss trends * H&P - Robin Bailey MD - 05/22/2021 12:58 AM EDT Images from the original note were not included. History Of Present Illness Rosibel Gayle is a 35 y.o. female with recurrent acute on chronic pancreatitis who presents to the [facility] ED for abdominal pain with associated nausea and vomiting. [facility] she had a flare of pain so bad it caused her to double over. She reports last bowel movements was this morning. She has multiple recent hospital admissions for same issue, though withunremarkable labs and imaging. She is being evaluated in outpatient setting for nerve block vs painpump. She reports her pain is controlled on oxycodone 15mg q4hr but has been unable to hold anything down related to her N/V. No blood in vomit. No fevers, chills, or other concerning symptoms. Past Medical History She has a past medical history of Anxiety, Arthritis, Depression, Fibromyalgia, GERD (gastroesophageal reflux disease), Hypertension, Nicotine dependence, Obesity, and Pancreatitis. She has no past medical history of Adverse effect of anesthesia, Asthma, Awareness under anesthesia, Cancer ([facility]), CHF (congestive heart failure) ([facility]), COPD (chronic obstructive pulmonary disease) ([facility]), Coronary artery disease, Delayed emergence from general anesthesia, Diabetes mellitus (CMS/HCC), Disease of thyroid gland, Hard to intubate, History of transfusion, Malignant hyperthermia, PONV (postoperative nausea and vomiting), Pseudocholinesterase deficiency, Spinal headache, or Stroke (CMS/HCC). Surgical History She has a past surgical [...] last month? No Travel History Travel since 04/22/21 No documented travel since 04/22/21 VACCINE/DOSE DATE DATE Flu 11/21/2019 12/27/2020 Tetanus Pneumovax Shingles Allergies Morphine and related and Tramadol Medications Current Facility-Administered Medications Medication Dose Route Frequency Provider Last Rate Last Admin ??? acetaminophen (Tylenol) tablet 1,000 mg 1,000 mg Oral q6h INO Bailey MD ??? enoxaparin (Lovenox) syringe 40 mg 40 mg Subcutaneous q24h INO Bailey MD ??? HYDROmorphone (Dilaudid) injection 1 mg 1 mg Intravenous q4h PRN Robin Bailey MD ??? lactated Ringer's infusion 100 mL/hr Intravenous Continuous Robin Bailey MD ??? lurasidone (Latuda) tablet 40 mg 40 mg Oral Daily with breakfast Robin Bailey MD ??? Melatonin tablet 10 tablet 10 tablet Oral Nightly PRN Robin Bailey MD ??? naloxone (Narcan) nasal spray 4 mg 4 mg Nasal PRN Robin Bailey MD ??? ondansetron (Zofran) injection 4 mg 4 mg Intravenous TID AC Robin Bailey MD ??? ondansetron ODT (Zofran-ODT) disintegrating tablet 4 mg 4 mg Oral q6h PRN Robin Bailey MD ??? oxyCODONE (Roxicodone) immediate release tablet 15 mg 15 mg Oral q4h PRN Robin Bailey MD ??? pancrelipase (Creon) 56671 units capsule 2 capsule Oral TID with meals Robin Bailey MD ??? pantoprazole (Protonix) EC tablet 40 mg 40 mg Oral BID Robin Bailey MD ??? polyethylene glycol (Miralax) packet 17 g 17 g Oral Daily Robin Bailey MD ??? pregabalin (Lyrica) capsule 300 mg 300 mg Oral BID Robin Bailey MD ??? promethazine (Phenergan) injection 12.5 mg 12.5 mg Intravenous q4h PRN Robin Bailey MD ??? senna-docusate (Janis-Colace) 8.6-50 MG per tablet 2 tablet 2 tablet Oral Nightly Robin Bailey MD ??? sodium chloride 0.9 % flush 10 mL 10 mL Intravenous q12h PRN Robin Bailey MD And ??? sodium chloride 0.9 % flush 10 mL 10 mL Intravenous PRN Robin Bailey MD ??? sucralfate (Carafate) 1 GM/10ML suspension 1 g 1 g Oral q6h INO Robin Bailey MD ??? venlafaxine XR (Effexor-XR) 24 hr capsule 150 mg 150 mg Oral Daily Robin Bailey MD Current Outpatient Medications Medication Sig Dispense Refill ??? acetaminophen (Tylenol) 500 MG tablet Take 1,000 mg by mouth every 6 (six) hours if needed for mild pain. ??? Latuda 40 MG tablet Take 40 mg by mouth 1 (one) time each day with breakfast. ??? Melatonin 10 MG tablet Take 10 [...] until medical assistance arrives.1 each 2 ??? oxyCODONE (Roxicodone) 15 MG immediate release tablet Take 1 tablet (15 mg total) by mouth every 4 (four) hours if needed (severe pain). 18 tablet 0 ??? pancrelipase, Wil-Bdly-Ggxx, (Creon) 21486-75204 units capsule Take 2 capsules by mouth 3 (three) times a day with meals. ??? pantoprazole (Protonix) 40 MG EC tablet Take 1 tablet (40 mg total) by mouth 2 (two) times a day. Do not crush, chew, or split. 120 tablet 0 ??? pregabalin (Lyrica) 300 MG capsule Take 300 mg by mouth 2 (two) times a day. ??? venlafaxine XR (Effoxor-XR) 150 MG 24 hr capsule Take 150 mg by mouth 1 (one) time each day. Review of Systems Gastrointestinal: Positive for abdominal pain, nausea and vomiting. Physical Exam Constitutional: Appearance: Normal appearance. She is obese. [...] is abdominal tenderness. There is no guarding. Musculoskeletal: Cervical back: Normal range of motion and neck supple. Skin: General: Skin is warm and dry. Neurological: General: No focal deficit present. Mental Status: She is alert and oriented to person, place, and time. Psychiatric: Mood and Affect: Mood normal. Behavior: Behavior normal. Last Recorded Vitals Blood pressure (!) 149/98, pulse 118, temperature 36.7 ??C (98.1 ??F), temperature source Oral, resp. rate 18, height 1.651 m (5' 5 ), weight 94.3 kg (208 lb), SpO2 98 %, not currently . Assessment/Plan Principal Problem: Acute on chronic pancreatitis (CMS/HCC) Active Problems: Bipolar depression (CMS/HCC) Fibromyalgia Recurrent pancreatitis GERD (gastroesophageal reflux disease) Obesity (BMI 35.0-39.9 without comorbidity) Chronic pancreatitis (CMS/HCC) Gastric erosions Chronic pain Opiate dependence (CMS/HCC) 35yo F w/ recurrent intractable abdominal pain w/ N/V secondary to chronic pancreatitis suspected from previous alcohol use #Nausea and vomiting #chronic pancreatitis w/ associated intractable pain -Continue IVF, scheduled zofran before meals, PRN phenergan -continue home pregabalin, tylenol, oxycodone 15mg q4hr with dilaudid for breakthrough pain. Discussed with patient she must take oral medication first to ensure pain will be controlled on oral regimen prior to going home -will need close outpatient follow-up with PCP, pain management, gastroenterology Chronic Bipolar disorder Fibromyalgia Gastric erosions Pancreatic insufficiency -continue latuda, venlafaxine, sucralfate, PPI, creon * ED Provider Notes - Kayla Ramos MD - 05/21/2021 8:00 PM EDT HPI Chief Complaint Patient presents with ??? Abdominal Pain Rosibel Gayle is a 35 y.o. female with chronic Pancreatitis who presents to the ED with abdominal pain. Pt complains of pain radiating from her abdominal region to her back. Pt also complains of rib pain and discomfort with breathing. Pt states this pain began around 1330 today when she collapsed to the floor at [facility] due to a crushing and stabbing pain in her abdomen. Per pt when she returned home she vomited and felt overheated. Pt states this pain feels different than her typical Pancreatitis flare-ups because of the crushing sensation in her abdomen. Pt reports previous Gallbladderremoval surgery. Pt denies use of Asprin or blood thinner. Pt has previously been medicated with Oxy codone and Phenergan to treat her Pancreatitis. Pt denies fever, chills. Pt denies LOC, headache. Pt denies diarrhea. 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 by: Patient medical interpreter used: No No data recorded Patient [...] History: reviewed Allergies: Allergies Allergen Reactions ??? Morphine And Related [...] are negative. Physical Exam ED Triage Vitals [05/21/212021] Temp Heart Rate Resp BP 36.7 ??C (98.1 ??F) 118 18 (!) 149/98 SpO2 Temp Source Heart Rate Source Patient [...] distension. Tenderness: There is abdominal tenderness. Musculoskeletal: General: No deformity. Normal range of motion. Cervical back: Normal range of motion and neck supple. Skin: General: Skin is warm and dry. Coloration: Skin is not jaundiced or pale. Neurological: General: No focal deficit present. Mental Status: She is alert and oriented to person, place, and time. ED Course & MDM ED Disposition: MDM Number of Diagnoses or Management Options Diagnosis management comments: Pt presents to ED with chronic pancreatitis. Tachycardic on arrival,otherwise VSS. TTP in epigastric area. Labs non- actionable. Given bolus LR and dilaudid and phenergan. Pt still having persistent pain and reordered another dose of dilaudid and zofran IV. Given poor pain control and nausea, medicine contacted for admission. Date/Time: 05/21/2021/8:45 PM Entered by Alexandria Velasco, acting as scribe for Dr. Kayla Ramos MD Attending Attestation: The documentation was recorded by Alexandria Velasco, acting as scribe in my presence at the time of the encounter and accurately reflects the service I personally performed. Amount and/or Complexity of Data Reviewed Decide to obtain previous medical records or to obtain history from someone other than the patient:yes ED Prescriptions None Sign Off Checklist Clinical Impression: complete ED Disposition: Complete Kayla Ramos MD 05/21/21 5034 * ED Triage Notes - Sonja Dalal RN - 05/21/2021 8:00 PM EDT Pt has chronic pancreatitis and states that she is having a flare up. Pt states that she collapsed in pain in [employer] earlier today. Pt also states that she has been vomiting today. Pt states that her pain is unbearable. documented in this encounter Plan of Treatment Not on file documented as of this encounter Procedures Procedure Name Priority Date/Time Associated Diagnosis Comments CBC W/O DIFFERENTIAL Routine 05/24/2021 2:48 AM EDT C-REACTIVE PROTEIN, PLASMA Routine 05/24/2021 2:48 AM EDT COMPREHENSIVE METABOLIC PANEL, PLASMA Routine 05/24/2021 2:[address] ABDOMEN PELVIS WO IV CONTRAST Routine 05/22/2021 1:13 PM EDT SARS COV2 COVID 19/INFLUENZA A, B STAT 05/21/2021 10:02 PM EDT OPIATES, LCMSMS, URINE STAT 9:59 PM EDT DRUG ABUSE SCREEN, URINE STAT 05/21/2021 9:59 PM EDT THC URINE CONFIRM STAT 05/21/2021 9:5 9 PM EDT URINALYSIS WITH REFLEX MICROSCOPIC STAT 05/21/2021 9:59 PM EDT TROPONIN T, HIGH SENSITIVITY, 0 HOUR, PLASMA, REFLEX TO 2 HOUR STAT 05/21/2021 9:43 PM EDT LACTATE, VENOUS STAT 05/21/2021 9:43 PM EDT CBC WITH AUTO DIFFERENTIAL STAT 05/21/2021 9:43 PM EDT TEST QUALITATIVE PLASMA STAT 05/21/2021 9:43 PM EDT LIPASE, PLASMA STAT 05/21/2021 9:43 PM EDT COMPREHENSIVE METABOLIC PANEL, PLASMA STAT 05/21/2021 9:43 PM EDT XR CHEST 1 VIEW STAT 05/21/2021 8:50 PM EDT ECG ADULT STAT 05/21/2021 8:37 PM EDT documented in this encounter Results * C-Reactive Protein, Plasma (05/24/2021 2:48 AM EDT) CRP, Plasma 4.0 <=8.0 mg/L 05/24/2021 4:03 AM EDT [facility] Blood Venous blood specimen / Unknown Venipuncture / Unknown 05/24/2021 2:48 AM EDT 05/24/2021 3:27 AM EDT Narrative [facility] - 05/24/2021 4:03 AM EDT This CRP test is appropriate for assessment of infection, systemic inflammation and/or tissue injury. To assess cardiovascular disease risk order high sensitivity CRP (CRPH). Da Holloway MD LAB BLOOD ORDERABLES Final R esult [facility] [address] [place] [address] * (ABNORMAL) Comprehensive metabolic panel (05/24/2021 2:48 AM EDT) Glucose, Plasma 106(H) 74 - 99 mg/dL 05/24/2021 4:03 AM EDT [facility] BUN, Plasma 11 7 - 21 mg/dL 05/24/2021 4:03 AM EDT [facility] Creatinine, Plasma 0.62 0.60 - 1.10 mg/dL 05/24/2021 4:03 AM EDT [facility] BUN/Creatinine Ratio 18 05/24/2021 4:03 AM EDT [facility] Sodium, Plasma 140 136 - 145 mmol/L 05/24/2021 4:03 AM EDT [facility] Potassium, Plasma 4.2 3.7 - 4.8 mmol/L 05/24/2021 4:03 AM EDT [facility] Comment:Reference range for Serum potassium is 0.2 to 0.5 mmol/L higher than Plasma range. Chloride, Plasma 102 97 - 107 mmol/L 05/24/2021 4:03 AM EDT [facility] CO2, Plasma 28 22 - 29 mmol/L 05/24/2021 4:03 AM EDT [facility] Anion Gap 10 6 - 16 mmol/L 05/24/2021 4:03 AM EDT [facility] Total Calcium, Plasma 9.3 8.9 - 10.2 mg/dL 05/24/2021 4:03 AM EDT [facility] Total Protein 6.0(L) 6.3 - 7.9 g/dL 05/24/2021 4:03 AM EDT [facility] Albumin, Plasma 3.6 3.5 - 5.2 g/dL 05/24/2021 4:03 AM EDT [facility] AST, Plasma 17 11 - 32 U/L 05/24/2021 4:03 AM EDT [facility] ALT, Plasma 26 8 - 33 U/L 05/24/2021 4:03 AM EDT [facility] Alkaline Phosphatase, Plasma 98 35 - 104 U/L 05/24/2021 4:03 AM EDT [facility] Total Bilirubin, Plasma <0.2(L) 0.2 - 1.1 mg/dL 05/24/2021 4:03 AM EDT [facility] eGFR >60 >60 mL/min/1.7 3m*2 05/24/2021 4[facility] Comment:eGFR = estimated GFR ; eGFR units = mL/min/1.73 sq meters Chronic Kidney Disease is considered if eGFR <60 mL/min/1.73 sq meters Kidney failure is considered if eGFR is <15 mL/min/1.73 sq meters. eGFR assumes steady state plasma creatinine concentration; not applicable if renal function is rapidly changing or patient is on dialysis. eGFR, if AFR/AM >60 >60 mL/min/1.7 3m*2 05/24/2021 4:03 [facility] Comment:eGFR = estimated GFR ; eGFR units = mL/min/1.73 sq meters Chronic Kidney Disease is considered if eGFR <60 mL/min/1.73 sq meters Kidney failure is considered if eGFR is <15 mL/min/1.73 sq meters. eGFR assumes steady state plasma creatinine concentration; not applicable if renal function is rapidly changing or patient is on dialysis. Blood Venous blood specimen / Unknown Venipuncture / Unknown 05/24/2021 2:48 AM EDT 05/24/2021 3:27 AM EDT Da Holloway MD LAB BLOOD ORDERABLES Final R esult [facility] [address] [place] [address] * (ABNORMAL) CBC W/O Differential (05/24/2021 2:48 AM EDT) WBC Count 4.12 3.70 - 10.30 10*3/uL LAB HEMATOLOGY METHOD 05/24/2021 3:49 AM EDT [facility] RBC Count 3.81(L) 3.90 - 5.20 10*6/uL LAB HEMATOLOGY METHOD 05/24/2021 3:49 AM EDT [facility] HGB 10.5(L) 11.2 - 15.7 g/dL LAB HEMATOLOGY METHOD 05/24/2021 3:49 AM EDT [facility] HCT 32.5(L) 34.0 - 45.0 % LAB HEMATOLOGY METHOD 05/24/2021 3:49 AM EDT [facility] Platelet Count 205 155 - 369 10*3/uL LAB HEMATOLOGY METHOD 05/24/2021 3:49 AM EDT [facility] MCV 85 79 - 98 fL LAB HEMATOLOGY METHOD 05/24/2021 3:49 AM EDT [facility] Comment:Results inconsistent with previous lab findings. MCH 27.6 26.0 - 32.0 pg LAB HEMATOLOGY METHOD 05/24/2021 3:49 AM EDT [facility] MCHC 32.3 30.7 - 35.5 g/dL LAB HEMATOLOGY METHOD 05/24/2021 3:49 AM EDT [facility] RDW 13.8 11.5 - 14.5 % LAB HEMATOLOGY METHOD 05/24/2021 3:49 AM EDT [facility] MPV 10.3 8.8 - 12.5 fL LAB HEMATOLOGY METHOD 05/24/2021 3:49 AM EDT [facility] nRBC 0.0 <=0.0 per 100 WBCs LAB HEMATOLOGY METHOD 05/24/2021 3:49 AM EDT [facility] Blood Venous blood specimen / Unknown Venipuncture / Unknown 05/24/2021 2:48 AM EDT 05/24/2021 3:27 AM EDT Da Holloway MD LAB BLOOD ORDERABLES Final R esult [facility] [address] [place] [address] * CT Abdomen Pelvis wo IV Contrast (05/22/2021 1:13 PM EDT) Anatomical Region Laterality Modality Abdomen, Pelvis Computed Tomogra phy Impressions 05/22/2021 1:35 PM EDT Small nodules involving the right middle and lower lobes. Right breast nodule, stable from 04/16/2016. Normal noncontrast appearance of the pancreas. Dictated by Francis Cunha on 05/22/2021 1:22 PM Signed by Francis Cunha on 05/22/2021 1:35 PM Narrative 05/22/2021 1:35 PM EDT Exam/Procedure: CT ABDOMEN PELVIS WO IV CONTRAST ordered by DA HOLLOWAY, [id number] CLINICAL INDICATION: persistent abdominal pain TECHNIQUE: Multiple axial CT images were obtained from diaphragm to symphysis pubis without administration of IV contrast. Reformatted images in the coronal and sagittal planes were generated from the axial data set to facilitate diagnostic accuracy. Total DLP (Dose-Length Product): 699.90 mGy.cm. Please note: The reported value represents the total of one or more individual components during the CT acquisition on this date and at this time, and as such, the same value may appear in more than one CT report depending on the interpreting/reporting physicians. COMPARISON: 04/24/2021 and earlier ABDOMEN: Lung bases:There is a 4 mm right middle lobe nodule-image 1, series 2. A 5 mm nodule involves the right lower lobe just above the diaphragm-image 12, series 2. There is a 1.3 x 2.0 cm circumscribed right breast nodule involving the medial right breast at approximately 3:00, 10 cm from the nipple.. Liver/biliary tree: No biliary dilatation. Gallbladder surgically absent. No suspicious nodules. Spleen: Normal spleen size. Pancreas: Normal caliber and attenuation. No ductal dilatation. No peripancreatic inflammation or fluid collections. No pancreatic calcifications. Adrenals: Normal adrenal size. Kidneys: No hydronephrosis, masses or stones. Bowel: No dilated loops of large or small bowel. Normal appendix. Lymph nodes: No enlarged mesenteric or retroperitoneal lymph nodes. Mesentery: No free air or free fluid. PELVIS: Bones: Vertebral body heights are maintained. No lytic or blastic lesions. Vessels: Normal aortic caliber. Bladder: Normal. Uterus is anteverted. Right adnexa measures approximately 2.1 x 2.6 cm. Procedure Note Francis Cunha MD - 05/22/2021 Exam/Procedure: CT ABDOMEN PELVIS WO IV CONTRAST ordered by [place] [id number] CLINICAL INDICATION: persistent abdominal pain TECHNIQUE: Multiple axial CT images were obtained from diaphragm to symphysis pubiswithout administration of IV contrast. Reformatted images in the coronaland sagittal planes were generated from the axial data set to facilitatediagnostic accuracy. Total DLP (Dose-Length Product): 699.90 mGy.cm. Please note: The reportedvalue represents the total of one or more individual components during theCT acquisition on this date and at this time, and as such, the same valuemay appear in more than one CT report depending on theinterpreting/reporting physicians. COMPARISON: 04/24/2021 and earlier ABDOMEN: Lung bases:There is a 4 mm right middle lobe nodule-image 1, series 2. A 5mm nodule involves the right lower lobe just above the diaphragm-image 12,series 2. There is a 1.3 x 2.0 cm circumscribed right breast nodule involving themedial right breast at approximately 3:00, 10 cm from the nipple.. Liver/biliary tree: No biliary dilatation. Gallbladder surgically absent.No suspicious nodules. Spleen: Normal spleen size. Pancreas: Normal caliber and attenuation. No ductal dilatation. Noperipancreatic inflammation or fluid collections. No pancreaticcalcifications. Adrenals: Normal adrenal size. Kidneys: No hydronephrosis, masses or stones. Bowel: No dilated loops of large or small bowel. Normal appendix. Lymph nodes: No enlarged mesenteric or retroperitoneal lymph nodes. Mesentery: No free air or free fluid. PELVIS: Bones: Vertebral body heights are maintained. No lytic or blasticlesions. Vessels: Normal aortic caliber. Bladder: Normal. Uterus is anteverted. Right adnexa measures approximately 2.1 x 2.6 cm. IMPRESSION: Small nodules involving the right middle and lower lobes. Right breast nodule, stable from 04/16/2016. Normal noncontrast appearance of the pancreas. Dictated by Francis Cunha on 05/22/2021 1:22 PM Signed by Francis Cunha on 05/22/2021 1:35 PM Da Holloway MD IM CT PROCEDURES Final Resu lt * SARS-CoV-2 COVID-19/Influenza A,B (05/21/2021 10:02 PM EDT) SARS CoV-2/COVID-1 9 RNA PCR Result Not Detected Not Detected 05/21/2021 10:28 PM EDT [facility] Influenza A Virus PCR Result Not Detected Not Detected 05/21/2021 10:28 PM EDT [facility] Influenza B Virus PCR Result Not Detected Not Detected 05/21/2021 10:28 PM EDT [facility] Swab Nasopharyngeal structure / Unknown Non-blood Collection / Unknown 05/21/2021 10:02 PM EDT 05/21/2021 10:04 PM EDT [facility] - 05/21/2021 10:28 PM EDT This test was performed using [...] clinical signs and symptoms consistent with COVID-19. Kayla Ramos MD LAB MICROBIOLOGY - GENERAL ORDER STACIA Final Result [facility] [address] [place] [address] * (ABNORMAL) Opiates Confirm Urine (05/21/2021 9:59 PM EDT) Codeine <50 <50 ng/mL 05/22/2021 9:59 PM EDT [facility] Codeine Glucuronide <50 <50 ng/mL 05/22/2021 9:59 PM EDT [facility] Desmethyl Tramadol <50 <50 ng/mL 05/22/2021 9:59 PM EDT [facility] EDDP - Methadone Metabolite <50 <50 ng/mL 05/22/2021 9:59 PM EDT [facility] Hydrocodone <50 <50 ng/mL 05/22/2021 9:59 PM EDT [facility] Hydromorphone <50 <50 ng/mL 05/22/2021 9:59 PM EDT [facility] Hydromorphone Glucuronide <50 <50 ng/mL 05/22/2021 9:59 PM EDT [facility] Comment:Metabolite of Hydrom orphone Meperidine <50 <50 ng/mL 05/22/2021 9:59 PM EDT [facility] Methadone <50 <50 ng/mL 05/22/2021 9:59 PM EDT [facility] 6 Monoacetyl morphine <10 <10 ng/mL 05/22/2021 9:59 PM EDT [facility] Morphine <50 <50 ng/mL 05/22/2021 9:59 PM EDT [facility] Morphine Glucuronide <50 <50 ng/mL 05/22/2021 9:59 PM EDT [facility] Comment:Metabolite of Morphi ne Naloxone <50 <50 ng/mL 05/22/2021 9:59 PM EDT [facility] Naloxone Glucuronide <50 <50 ng/mL 05/22/2021 9:59 PM EDT [facility] Comment:Metabolite of Naloxo ne Normeperidine <50 <50 ng/mL 05/22/2021 9:59 PM EDT [facility] Oxycodone >1,000(H) <50 ng/mL 05/22/2021 9:59 PM EDT [facility] Oxymorphone <50 <50 ng/mL 05/22/2021 9:59 PM EDT [facility] Oxymorphone Glucuronide >1,000(H) <50 ng/mL 05/22/2021 9:59 PM EDT [facility] Comment:Metabolite of Oxymor phone Tramadol <50 <50 ng/mL 05/22/2021 9:59 PM EDT [facility] Urine Urine specimen obtained by clean catch procedure / Unknown Non-blood Collection / Unknown 05/21/2021 9:59 PM EDT 05/21/2021 10:02 PM EDT [facility]arr[facility] - 05/22/2021 9:59 PM EDT Drug analysis is confirmed by LC-MS/MS (LC Tandem Mass Spectrometry) on Urine specimens. ?? This test was developed and its performance characteristics determined by [facility]. It has not been cleared or approved by the FDA. The laboratory is regulated under CLIA as qualified to perform high-complexity testing. This test is used for clinical purposes. Testing is performed at the [facility]. us Kayla Ramos MD LAB URINE ORDERABLES Final Resul t [facility] [address] [place] [address] * THC Urine Confirm LCMSMS (05/21/2021 9:59 PM EDT) 9 Carboxy THC <10 <10 ng/mL 05/22/2021 9:59 PM EDT [facility] 9 Carboxy THC Glucuronide <25 <25 ng/mL 05/22/2021 9:59 PM EDT [facility] Urine Urine specimen obtained by clean catch procedure / Unknown Non-blood Collection / Unknown 05/21/2021 9:59 PM EDT 05/21/2021 10:02 PM EDT Narrative [facility] - 05/22/2021 9:59 PM EDT Drug analysis is confirmed by LC-MS/MS (LC Tandem Mass Spectrometry) on Urine specimens. ?? This test was developed and its performance characteristics determined by [facility]. It has not been cleared or approved by the FDA. The laboratory is regulated under CLIA as qualified to perform high-complexity testing. This test is used for clinical purposes. Testing is performed at the [facility]. Kayla Ramos MD LAB URINE ORDERABLES Final Resul t Performing Organization Address [facility] de Phone Number [facility] [address] [place] [address] * Drug abuse screen (05/21/2021 9:59 PM EDT) [facility] Amphetamine Screen Urine Negative Negative 05/21/2021 10:20 PM EDT [facility] Benzodiazepines Screen Urine Negative Negative 05/21/2021 10:20 PM EDT [facility] Cannabinoid Screen Urine Presumptive positive. Confirmation by LC-MS/MS to follow. Negative 05/21/2021 10:20 PM EDT [facility] Cocaine Screen Urine Negative Negative 05/21/2021 10:20 PM EDT [facility] Barbiturate Screen Urine Negative Negative 05/21/2021 10:20 PM EDT [facility] Opiate Screen Urine Negative Negative 05/21/2021 10:20 PM EDT [facility] Methadone Screen Urine Negative Negative 05/21/2021 10:20 PM EDT [facility] Buprenorphine Screen Urine Negative Negative 05/21/2021 10:20 PM EDT [facility] Fentanyl Screen Urine Negative Negative 05/21/2021 10:20 PM EDT [facility] Oxycodone Screen Urine Presumptive positive. Confirmation by LC-MS/MS to follow. Negative 05/21/2021 10:20 PM EDT [facility] Urine Urine specimen obtained by clean catch procedure / Unknown Non-blood Collection / Unknown 05/21/2021 9:59 PM EDT 05/21/2021 10:02 PM EDT Kayla Ramos MD LAB URINE ORDERABLES Final Resul t Performing Organization Address [facility] Co de Phone Number [facility] [address] [place] [address] * Urinalysis with reflex microscopic (05/21/2021 9:59 PM EDT) Color, Urine Yellow LAB URINALYSIS - AUTOMATED METHOD 05/21/2021 10:05 PM EDT [facility] Clarity, Urine Clear LAB URINALYSIS - AUTOMATED METHOD 05/21/2021 10:05 PM EDT [facility] Spec [place], Urine 1.015 <=1.005 to >=1.030 LAB URINALYSIS - AUTOMATED METHOD 05/21/2021 10:05 PM EDT [facility] pH, Urine 6.5 4.5 to 8 LAB URINALYSIS - AUTOMATED METHOD 05/21/2021 10:05 PM EDT [facility] Protein, Urine Negative Negative mg/dL LAB URINALYSIS - AUTOMATED METHOD 05/21/2021 10:05 PM EDT [facility] Glucose, Urine Negative Negative mg/dL LAB URINALYSIS - AUTOMATED METHOD 05/21/2021 10:05 PM EDT [facility] Ketones, Urine Negative Negative mg/dL LAB URINALYSIS - AUTOMATED METHOD 05/21/2021 10:05 PM EDT [facility] Blood, Urine Negative Negative LAB URINALYSIS - AUTOMATED METHOD 05/21/2021 10:05 PM EDT [facility] Bilirubin, Urine Negative Negative LAB URINALYSIS - AUTOMATED METHOD 05/21/2021 10:05 PM EDT [facility] Urobilinogen, Urine 1.0 0.2 to 1.0 mg/dL LAB URINALYSIS - AUTOMATED METHOD 05/21/2021 10:05 PM EDT [facility] Leukocytes, Urine Negative Negative LAB URINALYSIS - AUTOMATED METHOD 05/21/2021 10:05 PM EDT [facility] Nitrite, Urine Negative Negative LAB URINALYSIS - AUTOMATED METHOD 05/21/2021 10:05 PM EDT [facility] Urine Urine specimen obtained by clean catch procedure / Unknown Non-blood Collection / Unknown 05/21/2021 9:59 PM EDT 05/21/2021 10:02 PM EDT us Kayla Ramos MD LAB URINE ORDERABLES Final Resul t [facility] [address] [place] [address] * hCG qualitative (05/21/2021 9:43 PM EDT) Pathologist [facility] Test Negative Negative 05/21/2021 10:10 PM EDT [facility] Blood Venous blood specimen / Unknown Venipuncture / Unknown 05/21/2021 9:43 PM EDT 05/21/2021 9:48 PM EDT Narrative [facility] - 05/21/2021 10:10 PM EDT Reference Range: Males and non- females: Negative. us Kayla Ramos MD LAB BLOOD ORDERABLES Final Resul t Performing Organization Address City/[facility]/ZIP Co de Phone Number [facility] [address] [place] [address] * Troponin now and 120 min (05/21/2021 9:43 PM EDT) Pathologist [facility] Troponin T, High Sensitivity, 0 Hour <6 <14 ng/L 05/21/2021 10:10 PM EDT [facility] Blood Venous blood specimen / Unknown Venipuncture / Unknown 05/21/2021 9:43 PM EDT 05/21/2021 9:48 PM EDT Result Alex Ramos MD LAB BLOOD ORDERABLES Final Resul t Performing Organization Address [facility] Co de Phone Number [facility] [address] [place] [address] * Lactic acid, venous (05/21/2021 9:43 PM EDT) Pathologist [facility] Lactate, Venous, Whole Blood 0.9 0.5 - 2.2 mmol/L LAB HEMATOLOGY METHOD 05/21/2021 9:50 PM EDT [facility] Blood Venous blood specimen / Unknown Venipuncture / Unknown 05/21/2021 9:43 PM EDT 05/21/2021 9:48 PM EDT us Kayla Ramos MD LAB BLOOD ORDERABLES Final Resul t Performing Organization Address City/[facility]/ZIP Co de Phone Number [facility] [address] [place] [address] * Lipase (05/21/2021 9:43 PM EDT) Lipase, Plasma 29 19 - 63 U/L 05/21/2021 10:10 PM EDT [facility] Blood Venous blood specimen / Unknown Venipuncture / Unknown 05/21/2021 9:43 PM EDT 05/21/2021 9:48 PM EDT us Kayla Ramos MD LAB BLOOD ORDERABLES Final Resul t [facility] [address] [place] [address] * (ABNORMAL) CMP (05/21/2021 9:43 PM EDT) Glucose, Plasma 96 74 - 99 mg/dL 05/21/2021 10:10 PM EDT [facility] BUN, Plasma 6(L) 7 - 21 mg/dL 05/21/2021 10:10 PM EDT [facility] Creatinine, Plasma 0.56(L) 0.60 - 1.10 mg/dL 05/21/2021 10:10 PM EDT [facility] BUN/Creatinine Ratio 11 05/21/2021 10:10 PM EDT [facility] Sodium, Plasma 139 136 - 145 mmol/L 05/21/2021 10:10 PM EDT [facility] Potassium, Plasma 3.8 3.7 - 4.8 mmol/L 05/21/2021 10:10 PM EDT [facility] Comment:Reference range for Serum potassium is 0.2 to 0.5 mmol/L higher than Plasma range. Chloride, Plasma 104 97 - 107 mmol/L 05/21/2021 10:10 PM EDT [facility] CO2, Plasma 24 22 - 29 mmol/L 05/21/2021 10:10 PM EDT [facility] Anion Gap 11 6 - 16 mmol/L 05/21/2021 10:10 PM EDT [facility] Total Calcium, Plasma 8.9 8.9 - 10.2 mg/dL 05/21/2021 10:10 PM EDT [facility] Total Protein 6.2(L) 6.3 - 7.9 g/dL 05/21/2021 10:10 PM EDT [facility] Albumin, Plasma 3.6 3.5 - 5.2 g/dL 05/21/2021 10:10 PM EDT [facility] AST, Plasma 21 11 - 32 U/L 05/21/2021 10:10 PM EDT [facility] ALT, Plasma 30 8 - 33 U/L 05/21/2021 10:10 PM EDT [facility] Alkaline Phosphatase, Plasma 105(H) 35 - 104 U/L 05/21/2021 10:10 PM EDT [facility] Total Bilirubin, Plasma <0.2(L) 0.2 - 1.1 mg/dL 05/21/2021 10:10 PM EDT [facility] eGFR >60 >60 mL/min/1.7 3m*2 05/21/2021 10:10 PM EDT [facility] Comment:eGFR = estimated GFR ; eGFR units = mL/min/1.73 sq meters Chronic Kidney Disease is considered if eGFR <60 mL/min/1.73 sq meters Kidney failure is considered if eGFR is <15 mL/min/1.73 sq meters. eGFR assumes steady state plasma creatinine concentration; not applicable if renal function is rapidly changing or patient is on dialysis. eGFR, if AFR/AM >60 >60 mL/min/1.7 3m*2 05/21/2021 10:10 PM EDT [facility] Comment:eGFR = estimated GFR ; [...] blood specimen / Unknown Venipuncture / Unknown 05/21/2021 9:43 PM EDT 05/21/2021 9:48 PM EDT us Kayla Ramos MD LAB BLOOD ORDERABLES Final Resul t [facility] [address] [place] [address] * (ABNORMAL) CBC w/diff (05/21/2021 9:43 PM EDT) WBC Count 6.16 3.70 - 10.30 10*3/uL LAB HEMATOLOGY METHOD 05/21/2021 9:50 PM EDT [facility] RBC Count 3.89(L) 3.90 - 5.20 10*6/uL LAB HEMATOLOGY METHOD 05/21/2021 9:50 PM EDT [facility] HGB 10.7(L) 11.2 - 15.7 g/dL LAB HEMATOLOGY METHOD 05/21/2021 9:50 PM EDT [facility] HCT 34.9 34.0 - 45.0 % LAB HEMATOLOGY METHOD 05/21/2021 9:50 PM EDT [facility] Platelet Count 211 155 - 369 10*3/uL LAB HEMATOLOGY METHOD 05/21/2021 9:50 PM EDT [facility] MCV 90 79 - 98 fL LAB HEMATOLOGY METHOD 05/21/2021 9:50 PM EDT [facility] MCH 27.5 26.0 - 32.0 pg LAB HEMATOLOGY METHOD 05/21/2021 9:50 PM EDT [facility] MCHC 30.7 30.7 - 35.5 g/dL LAB HEMATOLOGY METHOD 05/21/2021 9:50 PM EDT [facility] RDW 14.6(H) 11.5 - 14.5 % LAB HEMATOLOGY METHOD 05/21/2021 9:50 PM EDT [facility] MPV 9.9 8.8 - 12.5 fL LAB HEMATOLOGY METHOD 05/21/2021 9:50 PM EDT [facility] nRBC 0.0 <=0.0 per 100 WBCs LAB HEMATOLOGY METHOD 05/21/2021 9:50 PM EDT [facility] Differential Type Automated LAB HEMATOLOGY METHOD 05/21/2021 9:50 PM EDT [facility] Neutrophils % 51.0 % LAB HEMATOLOGY METHOD 05/21/2021 9:50 PM EDT [facility] Lymphocytes % 41.0 % LAB HEMATOLOGY METHOD 05/21/2021 9:50 PM EDT [facility] Monocytes % 6.0 % LAB HEMATOLOGY METHOD 05/21/2021 9:50 PM EDT [facility] Eosinophils % 0.0 % LAB HEMATOLOGY METHOD 05/21/2021 9:50 PM EDT [facility] Basophils % 1.0 % LAB HEMATOLOGY METHOD 05/21/2021 9:50 PM EDT [facility] Immature Granulocytes % 1.0 % LAB HEMATOLOGY METHOD 05/21/2021 9:50 PM EDT [facility] Neutrophils Absolute 3.12 1.60 - 6.10 10*3/uL LAB HEMATOLOGY METHOD 05/21/2021 9:50 PM EDT [facility] Lymphocytes Absolute 2.54 1.20 - 3.90 10*3/uL LAB HEMATOLOGY METHOD 05/21/2021 9:50 PM EDT [facility] Monocytes Absolute 0.38 0.30 - 0.90 10*3/uL LAB HEMATOLOGY METHOD 05/21/2021 9:50 PM EDT [facility] Eosinophils Absolute 0.01 0.00 - 0.50 10*3/uL LAB HEMATOLOGY METHOD 05/21/2021 9:50 PM EDT [facility] Basophils Absolute 0.07 0.00 - 0.10 10*3/uL LAB HEMATOLOGY METHOD 05/21/2021 9:50 PM EDT [facility] Immature Granulocytes Absolute 0.04 0.00 - 0.06 10*3/uL LAB HEMATOLOGY METHOD 05/21/2021 9:50 PM EDT [facility] Blood Venous blood specimen / Unknown Venipuncture / Unknown 05/21/2021 9:43 PM EDT 05/21/2021 9:48 PM EDT Narrative [facility] - 05/21/2021 9:50 PM EDT Therapeutic decision making should be based on absolute values, rather than percentages. us Kayla Ramos MD LAB BLOOD ORDERABLES Final Resul t [facility] [address] [place] [id number] * XR Chest 1 View (05/21/2021 8:50 PM EDT) Anatomical Region Laterality Modality Chest Digital Radiogra phy Impressions 05/21/2021 9:23 PM EDT No acute findings. CRITICAL RESULT: ?? No. COMMUNICATION: Per this written report. Approved by Latricia Larios on 05/21/2021 9:12 PM By electronically signing this report, I, the attending physician, attest that I have personally reviewed the images/data for the above examination(s) and agree with the final edited report. Dictated by Latricia Larios on 05/21/2021 9:12 PM Signed by Liv Rojas on 05/21/2021 9:23 PM Narrative 05/21/2021 9:23 PM EDT Exam/Procedure: XR CHEST 1 VIEW ordered by KAYLA RAMOS [id number] CLINICAL INDICATION: epigastric pain TECHNIQUE: XR CHEST 1 VIEW COMPARISON: 05/07/2021 FINDINGS: Mild bilateral atelectasis. No focal consolidation. No significant pneumothorax or pleural effusion. Cardiomediastinal silhouette is within normal limits. No acute displaced fracture. Procedure Note Liv Rojas MD - 05/21/2021 Exam/Procedure: XR CHEST 1 VIEW ordered by KAYLA RAMOS [id number] CLINICAL INDICATION: epigastric pain TECHNIQUE: XR CHEST 1 VIEW COMPARISON: 05/07/2021 FINDINGS: Mild bilateral atelectasis. No focal consolidation. No significantpneumothorax or pleural effusion. Cardiomediastinal silhouette is withinnormal limits. No acute displaced fracture. IMPRESSION: No acute findings. CRITICAL RESULT: No. COMMUNICATION: Per this written report. Approved by Latricia Larios on 05/21/2021 9:12 PM By electronically signing this report, I, the attending physician, attestthat I have personally reviewed the images/data for the aboveexamination(s) and agree with the final edited report. Dictated by Latricia Larios on 05/21/2021 9:12 PM Signed by Liv Rojas on 05/21/2021 9:23 PM us Kayla Ramos MD IMG XR PROCEDURES Final Result * EKG now - STAT (adult) (05/21/2021 8:37 PM EDT) EKG DIAGNOSIS CLASS Abnormal MUSE ECG Ventricular Rate 106 BPM MUSE ECG Atrial Rate 106 BPM MUSE ECG OK Interval 118 ms MUSE ECG QRSD Interval 80 ms MUSE ECG QT Interval 348 ms MUSE ECG QTC Interval 462 ms MUSE ECG P Bland 23 degrees MUSE ECG R Bland 20 degrees MUSE ECG T Wave Bland 28 degrees MUSE ECG Diagnosis Sinus tachycardia MUSE ECG Diagnosis Cannot rule out MUSE ECG Diagnosis Anterior infarct MUSE ECG Diagnosis , age undetermined MUSE ECG Diagnosis Abnormal ECG MUSE ECG Diagnosis Confirmed by Jennie Morales ([id number]) on 05/22/2021 7:39:55 PM MUSE ECG 05/21/2021 8:37 PM EDT 05/22/2021 7:39 PM EDT us Kayla Ramos MD ECG ORDERABLES Final Result MUSE ECG documented in this encounter Visit Diagnoses Diagnosis Epigastric pain- Primary Abdominal pain, epigastric Epigastric pain Abdominal pain, epigastric Chronic pancreatitis (CMS/HCC) Chronic pancreatitis Bipolar depression (CMS/HCC) Bipolar I disorder, most recent episode (or current) depressed, unspecified Chronic pain Other chronic pain GERD (gastroesophageal reflux disease) Esophageal reflux Gastric erosions Other specified gastritis without mention of hemorrhage Fibromyalgia Unspecified myalgia and myositis Obesity (BMI 35.0-39.9 without comorbidity) Opiate dependence (CMS/HCC) Opioid type dependence, unspecified abuse Recurrent pancreatitis Chronic pancreatitis documented in this encounter Administered Medications Inactive Administered Medications - up to 3 most recent administrations Medication Order MAR Action Action Date Dose Rate Site acetaminophen (Tylenol) tablet 1,000 mg 1,000 mg, Oral, Every 6 hours scheduled, First dose on Thu05/22/21 at 0100, Until Discontinued, Routine Given 05/27/2021 6:06 AM EDT 1,000 mg Given 05/27/2021 12:28 AM EDT 1,000 mg Given 05/26/2021 6:03 PM EDT 1,000 mg enoxaparin (Lovenox) syringe 40 mg 40 mg, Subcutaneous, Every 24 hours scheduled, First dose on Thu05/22/21 at 0900, Until Discontinued, RoutineIndications:Prophylaxis of Venous Thromboembolism Given 05/26/2021 9:10 AM EDT 40 mg Right Lower Abdomen Given 05/25/2021 8:43 AM EDT 40 mg Le ft Lower Abdomen Given 05/24/2021 9:26 AM EDT 40 mg Le ft Lower Abdomen HYDROmorphone (Dilaudid) injection 0.5 mg 0.5 mg, Intravenous, Once, 1 dose, On Thu05/21/21 at 2035, STAT Given 05/21/2021 9:46 PM EDT 0.5 mg HYDROmorphone (Dilaudid) injection 0.5 mg 0.5 mg, Intravenous, Once, 1 dose, On Thu05/21/21 at 2215, STAT Given 05/21/2021 10:21 PM EDT 0.5 mg HYDROmorphone (Dilaudid) injection 0.5 mg 0.5 mg, Intravenous, Once, 1 dose, On Thu05/21/21 at 2310, STAT Given 05/21/2021 11:22 PM EDT 0.5 mg HYDROmorphone (Dilaudid) injection 0.5 mg 0.5 mg, Intravenous, Every 4 hours PRN, Starting on Thu05/22/21 at 0843, Until Thu05/23/21 at 0950, Routine, severe pain, for breakthrough pain. Must give oxycodone first Given by Other 05/23/2021 7:30 AM EDT 0.5 mg Given 05/23/2021 2:39 AM EDT 0.5 mg Given 05/22/2021 9:36 PM EDT 0.5 mg hydrOXYzine pamoate (Vistaril) capsule 50 mg 50 mg, Oral, Every 6 hours PRN, Starting on Thu05/24/21 at 1201, Until Thu05/27/21 at 1515, Routine, anxiety Given 05/26/2021 10:39 PM EDT 50 mg iohexol (OMNIPaque) 9 MG/ML oral contrast 500 mL 500 mL, Oral, Once in imaging, 1 dose, Starting on Thu05/22/21 at 1048, Until Thu05/22/21 at 1214, Routine, Imaging Protocol Orders Given 05/22/2021 12:14 PM EDT 500 mL ketamine (Ketalar) 10 mg in sodium chloride 0.9 % 50 mL IVPB 10 mg, Intravenous, Every 8 hours, First dose (after last reorder) on Thu05/23/21 at 1130, Until Discontinued, at 224 mL/hr, Administer over 15 Minutes, Routine New Bag 05/26/2021 3:33 AM EDT 10 mg 224 mL/hr New Bag 05/25/2021 7:45 PM EDT 10 mg 224 mL/hr New Bag 05/25/2021 11:09 AM EDT 10 mg 224 mL/hr ketamine (Ketalar) 15 mg in sodium chloride 0.9 % 50 mL IVPB 15 mg, Intravenous, Every 8 hours, First dose (after last modification) on Thu05/26/21 at 1130, Until Discontinued, at 226 mL/hr, Administer over 15 Minutes, Routine New Bag 05/27/2021 4:16 AM EDT 15 mg 226 mL/hr New Bag 05/26/2021 8:20 PM EDT 15 mg 226 mL/hr New Bag 05/26/2021 11:31 AM EDT 15 mg 226 mL/hr lactated Ringer's infusion 1,000 mL 1,000 mL, Intravenous, Once, 1 dose, On Thu05/21/21 at 2035, STAT New Bag 05/21/2021 9:48 PM EDT 1,000 mL lactated Ringer's infusion 100 mL/hr, Intravenous, Continuous, Starting on Thu05/22/21 at 0100, Until Thu05/23/21 at 0151, Routine New Bag 05/22/2021 1:52 AM EDT 100 mL/hr 100 mL /hr lactulose (Chronulac) 10 GM/15ML solution 30 g 30 g, Oral, Once, 1 dose, On Thu05/26/21 at 1415, Routine Given 05/26/2021 2:17 PM EDT 30 g lurasidone (Latuda) tablet 40 mg 40 mg, Oral, Daily with breakfast, First dose on Thu05/22/21 at 0800, Until Discontinued, Routine Given 05/27/2021 8:46 AM EDT 40 mg Given 05/26/2021 9:10 AM EDT 40 mg Given 05/25/2021 8:44 AM EDT 40 mg melatonin tablet 9 mg 9 mg, Oral, Nightly PRN, Starting on Thu05/22/21 at 0054, Until Thu05/27/21 at 1515, Routine, sleep Given 05/25/2021 8:18 PM EDT 9 mg Given 05/24/2021 8:25 PM EDT 9 mg Given 05/24/2021 12:17 AM EDT 9 mg ondansetron (Zofran) injection 4 mg 4 mg, Intravenous, Once, 1 dose, On Thu05/21/21 at 2255, STAT Given 05/21/2021 10:58 PM EDT 4 mg ondansetron (Zofran) injection 4 mg 4 mg, Intravenous, 3 times daily before meals, First dose on Thu05/22/21 at 0800, Until Discontinued, Routine Given 05/27/2021 12:06 PM EDT 4 mg Given 05/27/2021 8:46 AM EDT 4 mg Given 05/26/2021 6:04 PM EDT 4 mg ondansetron ODT (Zofran-ODT) disintegrating tablet 4 mg 4 mg, Oral, Every 6 hours PRN, Starting on Thu05/22/21 at 0054, Until Thu05/27/21 at 1515, Routine, nausea, vomiting Given 05/23/2021 12:21 AM EDT 4 mg oxyCODONE (Roxicodone) immediate release tablet 15 mg 15 mg, Oral, Every 4 hours PRN, Starting on Thu05/22/21 at 0055, Until Thu05/24/21 at 1831, Routine, moderate pain, severe pain, severe pain Given 05/24/2021 4:10 PM EDT 15 mg Given 05/24/2021 9:57 AM EDT 15 mg Given 05/24/2021 5:43 AM EDT 15 mg oxyCODONE (Roxicodone) immediate release tablet 15 mg 15 mg, Oral, Every 6 hours PRN, Starting on Thu05/24/21 at 2230, Until Thu05/27/21 at 1515, Routine, moderate pain, severe pain, severe pain Given 05/27/2021 12:06 PM EDT 15 mg Given 05/27/2021 6:06 AM EDT 15 mg Given 05/27/2021 12:28 AM EDT 15 mg pancrelipase (Creon) 89200 units capsule 2 capsule, Oral, 3 times daily with meals, First dose on Thu05/22/21 at 0830, Until Discontinued, Routine Given 05/27/2021 12:06 PM EDT 2 capsule s Given 05/27/2021 8:46 AM EDT 2 capsules Given 05/26/2021 6:04 PM EDT 2 capsules pantoprazole (Protonix) EC tablet 40 mg 40 mg, Oral, 2 times daily, First dose on Thu05/22/21 at 0900, Until Discontinued, Routine Given 05/27/2021 8:46 AM EDT 40 mg Given 05/26/2021 8:20 PM EDT 40 mg Given 05/26/2021 7:52 AM EDT 40 mg polyethylene glycol (Miralax) packet 17 g 17 g, Oral, 2 times daily, First dose (after last modification) on Thu05/23/21 at 2100, Until Discontinued, Routine pregabalin (Lyrica) capsule 300 mg 300 mg, Oral, 2 times daily, First dose on Thu05/22/21 at 0900, Until Discontinued, Routine Given 05/27/2021 8:46 AM EDT 300 mg Given 05/26/2021 8:20 PM EDT 300 mg Given 05/26/2021 9:10 AM EDT 300 mg promethazine (Phenergan) injection 12.5 mg 12.5 mg, Intravenous, Once, 1 dose, On Thu05/21/21 at 2035, Routine Given 05/21/2021 9:49 PM EDT 12.5 mg promethazine (Phenergan) injection 12.5 mg 12.5 mg, Intravenous, Every 4 hours PRN, Starting on Thu05/22/21 at 0057, Until Thu05/27/21 at 1515, Routine, nausea, vomiting, Restricted to patients refractory to ondansetron. When rapid onset is required and oral is insufficient or NPO Given 05/26/2021 10:38 PM EDT 12.5 mg senna-docusate (Janis-Colace) 8.6-50 MG per tablet 2 tablet 2 tablet, Oral, Nightly, First dose on Thu05/22/21 at 0100, Until Discontinued, Routine Given 05/26/2021 8:20 PM EDT 2 tablets Given 05/25/2021 8:18 PM EDT 2 tablets Given 05/24/2021 8:24 PM EDT 2 tablets sodium chloride 0.9 % flush 10 mL 10 mL, Intravenous, Every 12 hours PRN, Starting on Thu05/22/21 at 0056, Until Thu05/27/21 at 1515, Routine, line care sodium chloride 0.9 % flush 10 mL 10 mL, Intravenous, As needed, Starting on Thu05/22/21 at 0056, Until Thu05/27/21 at 1515, Routine, line care sucralfate (Carafate) 1 GM/10ML suspension 1 g 1 g, Oral, Every 6 hours scheduled, First dose on Thu05/22/21 at 0100, Until Discontinued, Routine Given 05/27/2021 12:06 PM EDT 1 g Given 05/27/2021 6:06 AM EDT 1 g Given 05/27/2021 12:28 AM EDT 1 g venlafaxine XR (Effexor-XR) 24 hr capsule 150 mg 150 mg, Oral, Daily, First dose on Thu05/22/21 at 0900, Until Discontinued, Routine Given 05/27/2021 8:46 AM EDT 150 mg Given 05/26/2021 9:11 AM EDT 150 mg Given 05/25/2021 8:44 AM EDT 150 mg documented in this encounter Active and Recently Administered Medications Times are shown in EDT. Scheduled Medication Order 05/25/2021 05/26/2021 05/27/2021 acetaminophen (Tylenol) tablet 1,000 mg 1,000 mg, Oral, Every 6 hours scheduled, First dose on Thu05/22/21 at 0100, Until Discontinued, Routine 0519 (Given - Provider: Nya Odell LPN)1220 (Given - Provider: Raiza Mauro RN)1759 (Given - Provider: Raiza Mauro RN) 0002 (Given - Provider: Nya Odell LPN)0604 (Given - Provider: Nya Odell LPN)1218 (Given - Provider: Raiza Mauro RN)1803 (Given - Provider: Raiza Mauro RN) 0028 (Given - Provider: Samantha Moody LPN)0606 (Given - Provider: Samantha Moody LPN)1307 (Not Given - Provider: Johana Louis RN - Reason: Patient/family refused) enoxaparin (Lovenox) syringe 40 mg 40 mg, Subcutaneous, Every 24 hours scheduled, First dose on Thu05/22/21 at 0900, Until Discontinued, Routine 0843 (Given - Provider: Raiza Mauro RN) 0910 (Given - Provider: Raiza Mauro RN) 1028 (Not Given - Provider: Johana Louis RN - Reason: Patient/family refused) ketamine (Ketalar) 10 mg in sodium chloride 0.9 % 50 mL IVPB (CANCELED) 10 mg, Intravenous, Every 8 hours, First dose (after last reorder) on Annabel 05/23/21 at 1130, Until Discontinued, at 224 mL/hr, Administer over 15 Minutes, Routine 0358 (New Bag - Provider: Nya Odell LPN)1109 (New Bag - Provider: Raiza Mauro RN)1945 (New Bag - Provider: Nya Odell LPN) 0333 (New Bag - Provider: Nya Odell LPN) ketamine (Ketalar) 15 mg in sodium chloride 0.9 % 50 mL IVPB (CANCELED) 15 mg, Intravenous, Every 8 hours, First dose (after last modification) on 05/26/21 at 1130, Until Discontinued, at 226 mL/hr, Administer over 15 Minutes, Routine 1131 (New Bag - Provider: Raiza Mauro RN)2020 (New Bag - Provider: Samantha Moody LPN) 0416 (New Bag - Provider: Samantha Moody LPN)1308 (Return to Cabinet - Provider: Johana Louis RN - Comment: Patient discharged. Called pharmacy and returned to pharmacy.) lactulose (Chronulac) 10 GM/15ML solution 30 g (COMPLETED) 30 g, Oral, Once, 1 dose, On 05/26/21 at 1415, Routine 1417 (Given - Provider: Raiza Mauro RN) lurasidone (Latuda) tablet 40 mg 40 mg, Oral, Daily with breakfast, First dose on Thu05/22/21 at 0800, Until Discontinued, Routine 0844 (Given - Provider: Raiza Mauro RN) 0910 (Given - Provider: Raiza Mauro RN) 0846 (Given - Provider: Johana Louis RN) ondansetron (Zofran) injection 4 mg 4 mg, Intravenous, 3 times daily before meals, First dose on Thu05/22/21 at 0800, Until Discontinued, Routine 0844 (Given - Provider: Raiza Mauro RN)1220 (Given - Provider: Raiza Mauro RN)1840 (Given - Provider: Raiza L Nj, RN) 0758 (Given - Provider: Raiza Mauro RN)1218 (Given - Provider: Raiza Mauro RN)1804 (Given - Provider: Raiza Mauro RN) 0846 (Given - Provider: Johana Louis RN)1206 (Given - Provider: Johana Louis RN) pancrelipase (Creon) 10971 units capsule 2 capsule, Oral, 3 times daily with meals, First dose on Thu05/22/21 at 0830, Until Discontinued, Routine 0844 (Given - Provider: Raiza Mauro RN)1220 (Given - Provider: Raiza Mauro, CHANDNI)1840 (Given - Provider: Raiza Mauro RN - Comment: supper trays delivered late) 0758 (Given - Provider: Raiza Mauro RN)1218 (Given - Provider: Raiza Mauro RN)1804 (Given - Provider: Raiza Mauro RN) 0846 (Given - Provider: Johana Louis RN)1206 (Given - Provider: Johana Louis RN) pantoprazole (Protonix) EC tablet 40 mg 40 mg, Oral, 2 times daily, First dose on Thu05/22/21 at 0900, Until Discontinued, Routine 0844 (Given - Provider: Raiza Mauro RN)2017 (Given - Provider: Nya Odell LPN) 0752 (Given - Provider: Raiza Mauro RN)0758 (Not Given - Provider: Raiza Mauro RN - Reason: Other - Comment: scanned twice in error/duplicate)2019 (Given - Provider: Samantha Moody LPN) 0846 (Given - Provider: Johana Louis RN) polyethylene glycol (Miralax) packet 17 g 17 g, Oral, 2 times daily, First dose (after last modification) on Thu05/23/21 at 2100, Until Discontinued, Routine 0844 (Not Given - Provider: Raiza Mauro RN - Reason: Patient/family refused)2018 (Not Given - Provider: Nya Odell LPN - Reason: Patient/family refused) 0914 (Not Given - Provider: Raiza Mauro RN - Reason: Patient/family refused)202 (Not Given - Provider: Samantha Moody LPN - Reason: Patient/family refused) 1028 (Not Given - Provider: Johana Louis RN - Reason: Patient/family refused) pregabalin (Lyrica) capsule 300 mg 300 mg, Oral, 2 times daily, First dose on Thu05/22/21 at 0900, Until Discontinued, Routine 0844 (Given - Provider: Raiza Mauro RN)2015 (Given - Provider: yNa Odell LPN) 0910 (Given - Provider: Raiza Mauro RN)2019 (Given - Provider: Samantha Moody LPN) 0846 (Given - Provider: Johana Louis RN) senna-docusate (Janis-Colace) 8.6-50 MG per tablet 2 tablet 2 tablet, Oral, Nightly, First dose on Thu05/22/21 at 0100, Until Discontinued, Routine 2017 (Given - Provider: Nya Odell LPN) 2019 (Given - Provider: Samantha Moody LPN) sucralfate (Carafate) 1 GM/10ML suspension 1 g 1 g, Oral, Every 6 hours scheduled, First dose on Thu05/22/21 at 0100, Until Discontinued, Routine 0520 (Given - Provider: Nya Odell LPN)1109 (Given - Provider: Raiza Mauro RN)1759 (Given - Provider: Raiza Mauro RN) 0001 (Given - Provider: Nya Odell LPN)0604 (Given - Provider: Nya Odell LPN)1218 (Given - Provider: Raiza Mauro RN)1803 (Given - Provider: Raiza Mauro RN) 0028 (Given - Provider: Samantha Moody LPN)0606 (Given - Provider: Samantha Moody LPN)1206 (Given - Provider: Johana Louis RN) venlafaxine XR (Effexor-XR) 24 hr capsule 150 mg 150 mg, Oral, Daily, First dose on Thu05/22/21 at 0900, Until Discontinued, Routine 0844 (Given - Provider: Raiza Mauro RN) 0911 (Given - Provider: Raiza Mauro RN) 0846 (Given - Provider: Johana Louis RN) PRN Medication Order 05/25/2021 05/26/2021 05/27/2021 hydrOXYzine pamoate (Vistaril) capsule 50 mg 50 mg, Oral, Every 6 hours PRN, Starting on Thu05/24/21 at 1201, Until Thu05/27/21 at 1515, Routine, anxiety 2239 (Given - Provider: Samantha Moody LPN) melatonin tablet 9 mg 9 mg, Oral, Nightly PRN, Starting on Thu05/22/21 at 0054, Until Thu05/27/21 at 1515, Routine, sleep 2018 (Given - Provider: Nya Odell LPN) ondansetron ODT (Zofran-ODT) disintegrating tablet 4 mg 4 mg, Oral, Every 6 hours PRN, Starting on Thu05/22/21 at 0054, Until Thu05/27/21 at 1515, Routine, nausea, vomiting oxyCODONE (Roxicodone) immediate release tablet 15 mg 15 mg, Oral, Every 6 hours PRN, Starting on Thu05/24/21 at 2230, Until Thu05/27/21 at 1515, Routine, moderate pain, severe pain, severe pain 0519 (Given - Provider: Nya Odell LPN)1108 (Given - Provider: Raiza Mauro RN)1801 (Given - Provider: Raiza Mauro RN) 0002 (Given - Provider: Nya Odell LPN)0604 (Given - Provider: Nya Odell LPN)1218 (Given - Provider: Raiza Mauro RN)1803 (Given - Provider: Raiza Mauro RN) 0028 (Given - Provider: Samantha Moody LPN)0606 (Given - Provider: Samantha Moody LPN)1206 (Given - Provider: Johana Louis RN) promethazine (Phenergan) injection 12.5 mg 12.5 mg, Intravenous, Every 4 hours PRN, Starting on Thu05/22/21 at 0057, Until Thu05/27/21 at 1515, Routine, nausea, vomiting, Restricted to patients refractory to ondansetron. When rapid onset is required and oral is insufficient or NPO 2238 (Given - Provider: Samantha Moody LPN) sodium chloride 0.9 % flush 10 mL(Linked Group 1) 10 mL, Intravenous, Every 12 hours PRN, Starting on Thu05/22/21 at 0056, Until Thu05/27/21 at 1515, Routine, line care sodium chloride 0.9 % flush 10 mL(Linked Group 1) 10 mL, Intravenous, As needed, Starting on Thu05/22/21 at 0056, Until Thu05/27/21 at 1515, Routine, line care Linked Groups Order Group 1: Insert peripheral IV (COMPLETED) Once, On Thu05/22/21 at 0057, For 1 occurrence And Saline lock IV (COMPLETED) Once, On Thu05/22/21 at 0057, For 1 occurrence And sodium chloride 0.9 % flush 10 mLJump to med 10 mL, Intravenous, Every 12 hours PRN, Starting on Thu05/22/21 at 0056, Until Thu05/27/21 at 1515, Routine, line care And sodium chloride 0.9 % flush 10 mLJump to med 10 mL, Intravenous, As needed, Starting on Thu05/22/21 at 0056, Until Thu05/27/21 at 1515, Routine, line care documented in this encounter Additional Health Concerns Assessment Noted Time A fall risk assessment has been complete d for the patient 11/21/2020 2:30 PM EDT documented as of this encounter Care Teams Press Reader Relationship Specialty Start Date End Date Elmo Escobar MD PCP - General 10/18/20 01/05/23 documented as of this encounter
--- OUTSIDE RECORDS SUMMARY | 2024-02-03 15:25 | XMS_ITS | Encounter Summary ---
Author Organization Healthcare Address [address] [place] [address] Care Team Providers Care Administrative Personal Assistant Name Role Phone Elmo Escobar MD Primary Care Provider [phone] Reason for Visit * Reason Comments Abdominal Pain * Auth/Cert Specialty Diagnoses / Procedures Referred By Contac t Referred To Contact Diagnoses Dehydration Chronic pancreatitis, unspecified pancreatitis type (CMS/HCC) Kenny Landry MD [address] [place] [address] Phone: tel: fax: [facility] Inpatient [address] [place] [address] Phone: tel: Referral ID Status Reason Start Date Expiration Date Visits Re quested Visits Authorized [id number] 1 1 Encounter Details Date Type Department Care Team (Late st Contact Info) Description 05/07/2021 2:04 PM EDT - 05/07/2021 4:52 PM EDT Emergency [facility] Emergency Department [address] [place] [address] George Martinez MD [address] [place] [address] Abdominal pain, generalized (Primary Dx); Non-intractable vomiting with nausea, unspecified vomiting type Discharge Disposition: Home or [...] Reading Time Taken Comments Blood Pressure 142/91 05/07/2021 4:52 PM EDT Pulse 85 05/07/2021 4:52 PM EDT Temperature 36.8 ??C (98.2 ??F) 05/07/2021 4:52 PM ED T Respiratory Rate 15 05/07/2021 4:52 PM EDT Oxygen Saturation 97% 05/07/2021 4:52 PM EDT Inhaled Oxygen Concentration - - Weight - - Height - - Body Mass Index - - documented in this encounter Discharge Instructions * Discharge Instructions* Areli Ackerman MD - 05/07/2021 4:44 PM EDT Safe to be discharged at this time. Return to the emergency department for inability to tolerate oral intake for greater than 12 hours, worsening of your symptoms associated with fevers, or inabilityto care for yourself at home. * Attachments The following attachments cannot be sent through Care Everywhere. * Vomiting or Diarrhea (Adult), Diet for ([place]) * Vomiting and Diarrhea,??Self-Care for ([place]) * Pain, Measuring Your ([place]) * Pain, Communicating About ([place]an) documented in this encounter Medications at Time of Discharge acetaminophen (Tylenol) 500 MG tablet Take 1,000 mg by mouth every 6 (six) hours if needed for mild pain. 07/25/19 23 fluconazole (Diflucan) 150 MG tablet Take 1 tablet (150 mg total) by mouth 1 (one) time per week for 21 days. 3 tablet 04/23/2021 05/13/19 22 Latuda 40 MG tablet Take 40 mg by mouth 1 (one) time each day with breakfast. 10/14/2020 03/20/19 23 lidocaine (Lidoderm) 5 % patch Apply 1 patch topically if needed (shoulder). 05/13/19 22 Melatonin 10 MG tablet Take 10 tablets by mouth at night if needed (sleep). 12/21/19 22 naloxone (Narcan) 4 mg/0.1 mL nasal sprayIndications:Op [...] for up to 7 days. 21 tablet 05/03/2021 05/13/19 22 oxyCODONE (Roxicodone) 15 MG immediate release tablet Take 1 tablet (15 mg total) by mouth every 4 (four) hours if needed for moderate pain for up to 1 day. 2 tablet 05/03/2021 05/13/19 22 pancrelipase, Gqf-Vajs-Funa, (Creon) 90569-[address] units capsule Take 2 capsules by mouth [...] times a day. 10/28/19 24 promethazine (Phenergan) 12.5 MG tablet Take 1 tablet (12.5 mg total) by mouth every 6 (six) hours if needed for nausea or vomiting for up to 7 days. 21 tablet 05/03/2021 05/13/19 22 sucralfate (Carafate) 1 GM/10ML suspension Take 10 mL (1 g total) by mouth every 6 (six) hours. 1200 mL 04/20/2021 05/28/19 22 venlafaxine XR (Effoxor-XR) 150 MG 24 hr capsule Take 150 mg by mouth 1 (one) time each day. 07/07/2020 03/20/19 23 documented as of this encounter Miscellaneous Notes * ED Provider Notes - Areli Ackerman MD - 05/07/2021 1:45 PM EDT HPI Chief Complaint Patient presents with ??? Abdominal Pain 35 y.o. female with history of recurrent, chronic pancreatitis likely 2/2 alcohol use (last drank heavily 7 years ago) fibromyalgia, polysubstance use disorder, and bipolar disorder who presents to the ED with chief complaint of sharp, stabbing abdominal pain, vomiting, and diarrhea. Sharp pain onset 2 days ago, and she thought it was a normal flare, but vomiting and diarrhea started this morning. She's been unable to keep anything down was not able to take her home Phenergan, afternoon dose ofhome oxycodone, or home Ativan which she was started on. She denies fevers, symptoms out of proportion to her usual pain aside from some left-sided upper abdominal pain that radiates up under her ribs. She states she has a follow-up with her PCP scheduled for Thursday, but was unsure what to do acutely because she has not been able to keep anything down. Of note, patient was just discharged from this facility after being hospitalized for approximately 6 days for similar complaints. Patient appears to be hospitalized here regularly due to pancreatitis flares and intractable pain, and there is tammie e concern for drug-seeking per chart review. 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 by: Patient and medical records historic interpreter used: No No data recorded Patient [...] are negative. Physical Exam ED Triage Vitals [05/07/21 1401] Temp Heart Rate Resp BP 36.6 ??C (97.9 ??F) 103 16 (!) 141/93 SpO2 Temp Source Heart Rate Source Patient Position 97 % Oral -- -- BP Location FiO2 (%) -- -- Physical Exam Vitals and nursing note reviewed. Constitutional: General: She is in acute distress. Appearance: She is well-developed. She is obese. She is ill-appearing. HENT: Head: Normocephalic and atraumatic. Mouth/Throat: [...] distress. Breath sounds: Normal breath sounds. No wheezing or rhonchi. Abdominal: General: Abdomen is flat. Bowel sounds are normal. There is no distension. Palpations: Abdomen is soft. There is no fluid wave or mass. Tenderness: There is generalized abdominal tenderness and tenderness in the epigastric area and left upper quadrant. Hernia: No hernia is present. Musculoskeletal: Cervical back: Neck supple. Skin: General: Skin is warm and dry. Capillary Refill: Capillary refill takes less than 2 seconds. Neurological: General: No focal deficit present. Mental Status: She is alert and oriented to person, place, and time. Cranial Nerves: No cranial nerve deficit. Motor: No weakness. Psychiatric: Mood and Affect: Mood is anxious. Behavior: Behavior normal. ED Course & MDM 35-year-old female with past medical history of fibromyalgia, anxiety, and chronic pancreatitis. She presents emergency department today with symptoms similar to a pancreatitis flare in the past, butassociated with intractable vomiting and diarrhea. She is not able to keep her medications at home.Given this, we will resuscitate her with a 1 L LR bolus as well as some IV Phenergan and attempt bymouth tolerance in the emergency department. We will also obtain basic labs including CBC, CMP, andlipase as well as a chest x-ray for her vague chest pain associated with her usual upper abdominal pain. On re-evaluation, patient did not have any evidence of ECG changes, had a normal chest x-ray, and had no evidence of lab abnormalities on any of her workup. Patient's pain and nausea were still not completely controlled, so she was given a dose of by mouth 10 mg oxycodone as well as IV droperidol for nausea and IV Toradol for pain. On re-evaluation again approximately 30 minutes later, patient was still complaining of severe pain and nausea and states that she does not feeling better. Discussedwith patient that she does not warrant admission to the hospital, we cannot push IV medications anddischarge her. 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 She does have follow-up with her PCP on . d Clinical Impressions as of 05/07/21 1646 Abdominal pain, generalized Non-intractable vomiting with nausea, unspecified vomiting type ED Disposition: discharge MDM Number of Diagnoses or Management Options Amount and/or Complexity of Data Reviewed Clinical lab tests: ordered and reviewed Tests in the radiology section of CPT??: ordered and reviewed Tests in the medicine section of CPT??: reviewed Review and summarize past medical records: yes Independent visualization of images, tracings, or specimens: yes Risk of Complications, Morbidity, and/or Mortality Presenting problems: moderate Diagnostic procedures: moderate Management options: moderate Patient Progress Patient progress: improved ED Prescriptions None Sign Off Checklist Clinical Impression: Complete ED Disposition: Complete Areli Ackerman MD Resident 05/07/21 1648 Cosigned by George Martinez MD at 05/08/2021 7:08 AM EDT Associated attestation - George Martinez MD - 05/08/2021 7:08 AM EDT I saw and evaluated the patient with the resident/fellow. I discussed the case with the resident/fellow and agree with the findings and plan as documented. * ED Triage Notes - Andrew Gonzalez RN - 05/07/2021 1:45 PM EDT Pt with c/o luq abd pain with n/v/d x 2 days. Pt states feels like typical pancreatitis flare. documented in this encounter Plan of Treatment Not on file documented as of this encounter Procedures Procedure Name Priority Date/Time Associated Diagnosis Comments CBC W/O DIFFERENTIAL STAT 05/07/2021 3:20 PM EDT LIPASE, PLASMA STAT 05/07/2021 3:20 PM EDT COMPREHENSIVE METABOLIC PANEL, PLASMA STAT 05/07/2021 3:20 PM EDT XR CHEST 1 VIEW STAT 05/07/2021 2:36 PM EDT ECG ADULT STAT 05/07/2021 2:31 PM EDT documented in this encounter Results * (ABNORMAL) Lipase (05/07/2021 3:20 PM EDT) Pathologist [facility] Lipase, Plasma 16(L) 19 - 63 U/L 05/07/2021 4:01 PM EDT [facility] Blood Venous blood specimen / Unknown Venipuncture / Unknown 05/07/2021 3:20 PM EDT 05/07/2021 3:25 PM EDT us George Martinez MD LAB BLOOD ORDERABLES Final Result Performing Organization Address City/State/[facility] Co de Phone Number [facility] [address] [place] [address] * (ABNORMAL) CMP (05/07/2021 3:20 PM EDT) Pathologist [facility] Glucose, Plasma 113(H) 74 - 99 mg/dL 05/07/2021 4:01 PM EDT [facility] BUN, Plasma 9 7 - 21 mg/dL 05/07/2021 4:01 PM EDT [facility] Creatinine, Plasma 0.63 0.60 - 1.10 mg/dL 05/07/2021 4:01 PM EDT [facility] BUN/Creatinine Ratio 14 05/07/2021 4:01 PM EDT [facility] Sodium, Plasma 136 136 - 145 mmol/L 05/07/2021 4:01 PM EDT [facility] Potassium, Plasma 4.0 3.7 - 4.8 mmol/L 05/07/2021 4:01 PM EDT [facility] Comment:Reference range for Serum potassium is 0.2 to 0.5 mmol/L higher than Plasma range. Chloride, Plasma 102 97 - 107 mmol/L 05/07/2021 4:01 PM EDT [facility] CO2, Plasma 23 22 - 29 mmol/L 05/07/2021 4:01 PM EDT [facility] Anion Gap 11 6 - 16 mmol/L 05/07/2021 4:01 PM EDT [facility] Total Calcium, Plasma 9.5 8.9 - 10.2 mg/dL 05/07/2021 4:01 PM EDT [facility] Total Protein 7.1 6.3 - 7.9 g/dL 05/07/2021 4:01 PM EDT [facility] Albumin, Plasma 4.2 3.5 - 5.2 g/dL 05/07/2021 4:01 PM EDT [facility] AST, Plasma 41(H) 11 - 32 U/L 05/07/2021 4:01 PM EDT [facility] ALT, Plasma 83(H) 8 - 33 U/L 05/07/2021 4:01 PM EDT [facility] Alkaline Phosphatase, Plasma 132(H) 35 - 104 U/L 05/07/2021 4:01 PM EDT [facility] Total Bilirubin, Plasma 0.3 0.2 - 1.1 mg/dL 05/07/2021 4:01 PM EDT [facility] eGFR >60 >60 mL/min/1.7 3m*2 05/07/2021 4:01 PM EDT [facility] Comment:eGFR = estimated GFR ; eGFR units = mL/min/1.73 sq meters Chronic Kidney Disease is considered if eGFR <60 mL/min/1.73 sq meters Kidney failure is considered if eGFR is <15 mL/min/1.73 sq meters. eGFR assumes steady state plasma creatinine concentration; not applicable if renal function is rapidly changing or patient is on dialysis. eGFR, if AFR/AM >60 >60 mL/min/1.7 3m*2 05/07/2021 4:01 PM EDT [facility] Comment:eGFR = estimated GFR [...] blood specimen / Unknown Venipuncture / Unknown 05/07/2021 3:20 PM EDT 05/07/2021 3:25 PM EDT us George Martinez MD LAB BLOOD ORDERABLES Final Result [facility] [address] [place] [id number] * (ABNORMAL) CBC (05/07/2021 3:20 PM EDT) WBC Count 7.58 3.70 - 10.30 10*3/uL LAB HEMATOLOGY METHOD 05/07/2021 3:27 PM EDT [facility] RBC Count 4.51 3.90 - 5.20 10*6/uL LAB HEMATOLOGY METHOD 05/07/2021 3:27 PM EDT [facility] HGB 12.2 11.2 - 15.7 g/dL LAB HEMATOLOGY METHOD 05/07/2021 3:27 PM EDT [facility] HCT 38.2 34.0 - 45.0 % LAB HEMATOLOGY METHOD 05/07/2021 3:27 PM EDT [facility] Platelet Count 230 155 - 369 10*3/uL LAB HEMATOLOGY METHOD 05/07/2021 3:27 PM EDT [facility] MCV 85 79 - 98 fL LAB HEMATOLOGY METHOD 05/07/2021 3:27 PM EDT [facility] MCH 27.1 26.0 - 32.0 pg LAB HEMATOLOGY METHOD 05/07/2021 3:27 PM EDT [facility] MCHC 31.9 30.7 - 35.5 g/dL LAB HEMATOLOGY METHOD 05/07/2021 3:27 PM EDT [facility] RDW 15.6(H) 11.5 - 14.5 % LAB HEMATOLOGY METHOD 05/07/2021 3:27 PM EDT [facility] MPV 9.4 8.8 - 12.5 fL LAB HEMATOLOGY METHOD 05/07/2021 3:27 PM EDT [facility] nRBC 0.0 <=0.0 per 100 WBCs LAB HEMATOLOGY METHOD 05/07/2021 3:27 PM EDT [facility] Blood Venous blood specimen / Unknown Venipuncture / Unknown 05/07/2021 3:20 PM EDT 05/07/2021 3:25 PM EDT us George Martinez MD LAB BLOOD ORDERABLES Final Result [facility] [address] [place] [address] * XR Chest 1 View (05/07/2021 2:36 PM EDT) Anatomical Region Laterality Modality Chest Digital Radiogra phy Impressions 05/07/2021 2:56 PM EDT Unremarkable chest examination. CRITICAL RESULT: ?? No. COMMUNICATION: Per this written report. Dictated by Edgardo Roque MD on 05/07/2021 2:56 PM Signed by Edgardo Roque MD on 05/07/2021 2:56 PM Narrative 05/07/2021 2:56 PM EDT Exam/Procedure: XR CHEST 1 VIEW ordered by GEORGE MARTINEZ, [id number] CLINICAL INDICATION: rib/lower chest pain TECHNIQUE: XR CHEST 1 VIEW COMPARISON: None. FINDINGS: Lungs are clear. Heart and mediastinal contours are within normal limits. No pneumothorax. ??No pleural effusion. Bony structures are unremarkable. Procedure Note Edgardo Roque MD - 05/07/2021 Exam/Procedure: XR CHEST 1 VIEW ordered by GEORGE MARTINEZ, [id number] CLINICAL INDICATION: rib/lower chest pain TECHNIQUE: XR CHEST 1 VIEW COMPARISON: None. FINDINGS: Lungs are clear. Heart and mediastinal contours are within normal limits.No pneumothorax. No pleural effusion. Bony structures are unremarkable. IMPRESSION: Unremarkable chest examination. CRITICAL RESULT: No. COMMUNICATION: Per this written report. Dictated by Edgardo Roque MD on 05/07/2021 2:56 PM Signed by Edgardo Roque MD on 05/07/2021 2:56 PM us George Martinez MD IMG XR PROCEDURES Final Res ult * ECG Adult (05/07/2021 2:31 PM EDT) EKG DIAGNOSIS CLASS Borderline Abnormal MUSE ECG Ventricular Rate 84 BPM MUSE ECG Atrial Rate 84 BPM MUSE ECG ID Interval 132 ms MUSE ECG QRSD Interval 78 ms MUSE ECG QT Interval 376 ms MUSE ECG QTC Interval 444 ms MUSE ECG P [place] 33 degrees MUSE ECG R [place] 21 degrees MUSE ECG T Wave [place] 15 degrees MUSE ECG Diagnosis Normal sinus rhythm MUSE ECG Diagnosis Low voltage QRS MUSE ECG Diagnosis late transition MUSE ECG Diagnosis Borderline ECG MUSE ECG Diagnosis Confirmed by Swapnil Mills ([id number]) on 05/07/2021 11:23:17 PM MUSE ECG 05/07/2021 2:31 PM EDT 05/07/2021 11:23 PM EDT us George Martinez MD ECG ORDERABLES Final Resul t MUSE ECG documented in this encounter Visit Diagnoses Diagnosis Abdominal pain, generalized- Primary Non-intractable vomiting with nausea, unspecified vomiting type documented in this encounter Administered Medications Inactive Administered Medications - up to 3 most recent administrations Medication Order MAR Action Action Date Dose Rate Site droperidol (Inapsine) injection 2.5 mg 2.5 mg, Intravenous, Once, 1 dose, On 05/07/21 at 1605, Routine Given 05/07/2021 4:17 PM EDT 2.5 mg ketorolac (Toradol) injection 30 mg 30 mg, Intravenous, Once, 1 dose, On 05/07/21 at 1605, STAT Given 05/07/2021 4:18 PM EDT 30 mg lactated Ringer's infusion 1,000 mL 1,000 mL, Intravenous, Once, 1 dose, On 05/07/21 at 1420, STAT New Bag 05/07/2021 3:21 PM EDT 1,000 mL oxyCODONE (Roxicodone) immediate release tablet 10 mg 10 mg, Oral, Once, 1 dose, On 05/07/21 at 1605, STAT Given 05/07/2021 4:17 PM EDT 10 mg oxyCODONE (Roxicodone) immediate release tablet 10 mg 10 mg, Oral, Once, 1 dose, On e 05/07/21 at 1635, STAT Given 05/07/2021 4:45 PM EDT 10 mg promethazine (Phenergan) injection 25 mg 25 mg, Intravenous, Once, 1 dose, On 05/07/21 at 1420, STAT Given 05/07/2021 3:22 PM EDT 25 mg documented in this encounter Active and Recently Administered Medications Due to Daylight Saving Time, this section may contain times in both EST and EDT. Scheduled Medication Order 05/05/2021 05/06/2021 05/07/2021 droperidol (Inapsine) injection 2.5 mg (COMPLETED) 2.5 mg, Intravenous, Once, 1 dose, On 05/07/21 at 1605, Routine 1617 (Given - Provid er: Sherrill Angel RN) ketorolac (Toradol) injection 30 mg (COMPLETED) 30 mg, Intravenous, Once, 1 dose, On 05/07/21 at 1605, STAT 1618 (Given - Provid er: Sherrill Angel RN) lactated Ringer's infusion 1,000 mL (COMPLETED) 1,000 mL, Intravenous, Once, 1 dose, On 05/07/21 at 1420, STAT 1521 (New Bag - Prov ider: Gela Joseph RN)1646 (Stopped - Provider: Sherrill Angel RN) oxyCODONE (Roxicodone) immediate release tablet 10 mg (COMPLETED) 10 mg, Oral, Once, 1 dose, On 05/07/21 at 1605, STAT 1617 (Given - Provid er: Sherrill Angel RN) oxyCODONE (Roxicodone) immediate release tablet 10 mg (COMPLETED) 10 mg, Oral, Once, 1 dose, On 05/07/21 at 1635, STAT 1645 (Given - Provid er: Sherrill Angel RN) promethazine (Phenergan) injection 25 mg (COMPLETED) 25 mg, Intravenous, Once, 1 dose, On 05/07/21 at 1420, STAT 1522 (Given - Provid er: Gela Joseph RN) documented in this encounter Additional Health Concerns Assessment Noted Time A fall risk assessment has been complete d for the patient 11/21/2020 2:30 PM EDT documented as of this encounter Care Teams Administrative Personal Assistant Relationship Specialty Start Date End Date Elmo Escobar MD PCP - General 10/18/20 01/05/23 documented as of this encounter
--- OUTSIDE RECORDS SUMMARY | 2024-02-03 15:25 | XMS_ITS | Encounter Summary ---
Author Organization Healthcare Address [address] [place] [address] Care Team Providers Care Invoicing Machine Operator Name Role Phone Elmo Escobar MD Primary Care Provider [phone] Reason for Visit * Reason Comments Abdominal Pain Encounter Details Date Type Department Care Team (Late st Contact Info) Description 06/08/2021 3:07 PM EDT - 06/08/2021 6:26 PM EDT Emergency [facility] Emergency Department [address] [place] [address] Epigastric pain (Primary Dx); Chronic pancreatitis, unspecified pancreatitis [...] Sign Reading Time Taken Comments Blood Pressure 127/84 06/08/2021 6:08 PM EDT Pulse 75 06/08/2021 6:08 PM EDT Temperature 36.6 ??C (97.8 ??F) 06/08/2021 3:04 PM ED T Respiratory Rate 18 06/08/2021 6:08 PM EDT Oxygen Saturation 97% 06/08/2021 6:08 PM EDT Inhaled Oxygen Concentration - - Weight 93.7 kg (206 lb 9.1 oz) 06/08/2021 3:04 P M EDT Height 165.1 cm (5' 5 ) 06/08/2021 3:04 PM EDT Body Mass Index 34.38 06/08/2021 3:04 PM EDT documented in this encounter Discharge Instructions * Discharge Instructions* Stephanie Zaman APRN - 06/08/2021 6:15 PM EDT Take medications as prescribed. Recommend clear liquid diet until you have symptom resolution. Follow-up with your PCP as scheduled and return to ER with any new concerning or worsening of symptoms. * Attachments The following attachments cannot be sent through Care Everywhere. * Pancreatitis (Trinidadian) * Pancreatitis, Chronic, Discharge Instructions for (Trinidadian) documented in this encounter Medications at Time [...] if needed for severe pain. 2 pancrelipase, Jjf-Cbht-Sekx, (Creon) [id number] units capsule Take 2 capsules by mouth [...] Miscellaneous Notes * ED Provider Notes - Stephanie Zaman APRN - 06/08/2021 2:47 PM EDT HPI Chief Complaint Patient presents with ??? Abdominal Pain Lila Mcnally is a 35 y.o. female who presents to the Emergency Department with complaints of gastric pain and nausea. Patient with history of chronic pancreatitis. Currently taking 10 mg of oxycodone for pain without relief. Has been nauseous without vomiting. Reports epigastric abdominal pain similar to prior exacerbations of a pancreatitis. Last normal bowel movement was this morning, it did not help with symptoms. Recent hospital admission for similar symptoms, patient discharged on 05/27/21. Patient reports an upcoming appointment on Thursday06/11/21 with PCP. Currently following with pain management to have a pain pump implanted. No chest pain, palpitations or shortness of breath, fever, chills, urinary symptoms or infectious symptoms and has no other symptoms or complaints today. 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 by: Patient No data recorded [...] chills and fever. HENT: Negative. Negative for congestion. Eyes: Negative. Negative for visual disturbance. Respiratory: Negative for cough, chest tightness, shortness of breath and wheezing. Cardiovascular: Negative for chest pain and palpitations. Gastrointestinal: Positive for abdominal pain and nausea. Negative for blood in stool, constipation, diarrhea and vomiting. Endocrine: Negative. Genitourinary: Negative for dysuria, frequency, urgency and vaginal discharge. Musculoskeletal: Negative for back pain and myalgias. Skin: Negative. Negative for rash. Neurological: Negative for dizziness, syncope, speech difficulty, weakness, light-headedness, numbness and headaches. Psychiatric/Behavioral: Negative. Negative for confusion. Physical Exam ED Triage Vitals Temp Heart Rate Resp BP 06/08/21 1504 06/08/21 1504 06/08/21 1504 06/08/21 1506 36.6 ??C (97.8 ??F) (!) 124 24 (!) 138/98 SpO2 Temp Source Heart Rate Source Patient Position 06/08/21 1504 06/08/21 1504 -- 06/08/21 1504 99 % Oral Sitting BP Location FiO2 (%) 06/08/21 1504 -- Left arm Physical Exam Vitals and nursing note reviewed. Constitutional: General: She is not in acute distress. Appearance: Normal appearance. She is well-developed. She is not toxic-appearing. HENT: Head: Normocephalic and atraumatic. Right Ear: External ear normal. Left Ear: External ear normal. Nose: Nose normal. Mouth/Throat: Lips: [place]. Mouth: Mucous membranes are moist. Eyes: Extraocular Movements: Extraocular movements intact. Conjunctiva/sclera: Conjunctivae normal. Cardiovascular: Rate and Rhythm: Regular rhythm. Tachycardia present. Pulmonary: Effort: Pulmonary effort is normal. Abdominal: [...] and oriented to person, place, and time. GCS: GCS eye subscore is 4. GCS verbal subscore is 5. GCS motor subscore is 6. Psychiatric: Attention and Perception: Attention normal. Mood and Affect: Mood and affect normal. Speech: Speech normal. Behavior: Behavior normal. Behavior is cooperative. Thought Content: Thought content normal. ED Course & MDM Labs Reviewed COMPREHENSIVE METABOLIC PANEL, PLASMA - Abnormal Result Value Glucose, Plasma 105 (*) BUN, Plasma 7 Creatinine, Plasma 0.78 BUN/Creatinine Ratio 9 Sodium, Plasma 137 Potassium, Plasma 3.8 Chloride, Plasma 101 CO2, Plasma 24 Anion Gap 12 Total Calcium, Plasma 9.4 Total Protein 7.6 Albumin, Plasma 4.5 AST, Plasma 16 ALT, Plasma 14 Alkaline Phosphatase, Plasma 102 Total Bilirubin, Plasma 0.3 eGFR >60 eGFR, if AFR/AM >60 CBC WITH AUTO DIFFERENTIAL - Abnormal WBC Count 5.69 RBC Count 4.82 HGB 13.1 HCT 40.6 Platelet Count 238 MCV 84 MCH 27.2 MCHC 32.3 RDW 14.7 (*) MPV nRBC 0.0 Differential Type Automated Neutrophils % 68.0 Lymphocytes % 24.0 Monocytes % 7.0 Eosinophils % 0.0 Basophils % 1.0 Immature Granulocytes % 0.0 Neutrophils Absolute 3.88 Lymphocytes Absolute 1.35 Monocytes Absolute 0.38 Eosinophils Absolute 0.02 Basophils Absolute 0.04 Immature Granulocytes Absolute 0.02 Narrative: Therapeutic decision making should be based on absolute values, rather than percentages. LIPASE, PLASMA - Normal Lipase, Plasma 44 LACTATE, VENOUS - Normal Lactate, Venous, Whole Blood 1.5 MORPHOLOGY RBC Morphology RBC Morphology Consistent with Indices and RDW Clumped Platelets Present Clinical Impressions as of 06/09/21 0043 Chronic pancreatitis, unspecified pancreatitis type (CMS/HCC) Epigastric pain ED Disposition: Discharge MDM Number of Diagnoses or Management Options Chronic pancreatitis, unspecified pancreatitis type (CMS/HCC) Epigastric pain Diagnosis management comments: Lila Mcnally is a 35 yrs old female who presents to the ER today for acute exacerbation of chronic pancreatitis. Reports presentation is that of typical previous presentations. No outlying symptoms. No infectious signs or symptoms reported. Mild epigastric tenderness to palpation. Patient underwent CT abdomen and pelvis without contrast on 05/22/2021 with no acute findings regarding abdominalpain. In order to fully explore differential these tests and treatments were ordered. Orders Placed This Encounter CMP Lipase Lactic acid, venous CBC w/diff Insert peripheral IV Medications droperidol (Inapsine) injection 2.5 mg (2.5 mg Intravenous Given 06/08/21 1606) lactated Ringer's infusion 1,000 mL (1,000 mL Intravenous New Bag 06/08/21 1606) Patient's lipase is normal, the lactic acid normal, no leukocytosis noted. No acute or actionable electrolyte abnormalities. LFTs and bilirubin normal. Creatinine normal. After receiving droperidol is reported to me that patient is experiencing jaw clinching. She is evaluated by the attending, Dr. Ramos, and IV Benadryl is ordered. Symptoms completely resolve after receiving this medication. Reports pain and nausea persist. She is requesting IM medications and discharged home. She is given IM Dilaudid and Zofran. After observation. Following this medication she is willing to go home. Clear liquid diet recommended. She has an appointment with her PCP in 2 days, she is encouraged to keep this. Advise return to ER with any new concerning or worsening of symptoms. Amount and/or Complexity of Data Reviewed Clinical lab tests: ordered and reviewed Discuss the patient with other providers: yes Patient Progress Patient progress: stable ED Prescriptions None Sign Off Checklist Clinical Impression: Complete ED Disposition: Complete Stephanie Zaman APRN 06/09/21 0043 Cosigned by Kayla Ramos MD at 06/13/2021 3:18 PM EDT Associated attestation - Kayla Ramos MD - 06/13/2021 3:18 PM EDT The patient was seen only by Advanced Practice Provider (AJAY). * ED Triage Notes - Carlton Sr RN - 06/08/2021 2:47 PM EDT Pt states having abdominal pain in the upper/epigastric region that radiates to the left flank. States she thinks it may be related to her chronic pancreatitis. States she has been nauseated and dry heaving. documented in this encounter Plan of Treatment Not on file documented as of this encounter Procedures Procedure Name Priority Date/Time Associated Diagnosis Comments MORPHOLOGY STAT 06/08/2021 3:59 PM EDT LACTATE, VENOUS STAT 06/08/2021 3:59 PM EDT CBC WITH AUTO DIFFERENTIAL STAT 06/08/2021 3:59 PM EDT LIPASE, PLASMA STAT 06/08/2021 3:59 PM EDT COMPREHENSIVE METABOLIC PANEL, PLASMA STAT 06/08/2021 3:59 PM EDT documented in this encounter Results * Morphology (06/08/2021 3:59 PM EDT) Pathologist [facility] RBC Morphology RBC Morphology Consistent with Indices and RDW LAB HEMATOLOGY METHOD 06/08/2021 4:54 PM EDT [facility] Clumped Platelets Present LAB HEMATOLOGY METHOD 06/08/2021 4:54 PM EDT [facility] Blood Venous blood specimen / Unknown Venipuncture / Unknown 06/08/2021 3:59 PM EDT 06/08/2021 4:06 PM EDT Stephanie Olivarez APRN LAB BLOOD ORDERABLES Final Re sult Performing Organization Address City/State/[facility] Co de Phone Number [facility] [address] [place] [address] * (ABNORMAL) CBC w/diff (06/08/2021 3:59 PM EDT) Pathologist [facility] WBC Count 5.69 3.70 - 10.30 10*3/uL LAB HEMATOLOGY METHOD 06/08/2021 4:54 PM EDT [facility] RBC Count 4.82 3.90 - 5.20 10*6/uL LAB HEMATOLOGY METHOD 06/08/2021 4:54 PM EDT [facility] HGB 13.1 11.2 - 15.7 g/dL LAB HEMATOLOGY METHOD 06/08/2021 4:54 PM EDT [facility] HCT 40.6 34.0 - 45.0 % LAB HEMATOLOGY METHOD 06/08/2021 4:54 PM EDT [facility] Platelet Count 238 155 - 369 10*3/uL LAB HEMATOLOGY METHOD 06/08/2021 4:54 PM EDT [facility] MCV 84 79 - 98 fL LAB HEMATOLOGY METHOD 06/08/2021 4:54 PM EDT [facility] MCH 27.2 26.0 - 32.0 pg LAB HEMATOLOGY METHOD 06/08/2021 4:54 PM EDT [facility] MCHC 32.3 30.7 - 35.5 g/dL LAB HEMATOLOGY METHOD 06/08/2021 4:54 PM EDT [facility] RDW 14.7(H) 11.5 - 14.5 % LAB HEMATOLOGY METHOD 06/08/2021 4:54 PM EDT [facility] MPV LAB HEMATOLOGY METHOD 06/08/2021 4:54 PM EDT [facility] Comment:Not Measured nRBC 0.0 <=0.0 per 100 WBCs LAB HEMATOLOGY METHOD 06/08/2021 4:54 PM EDT [facility] Differential Type Automated LAB HEMATOLOGY METHOD 06/08/2021 4:54 PM EDT [facility] Neutrophils % 68.0 % LAB HEMATOLOGY METHOD 06/08/2021 4:54 PM EDT [facility] Lymphocytes % 24.0 % LAB HEMATOLOGY METHOD 06/08/2021 4:54 PM EDT [facility] Monocytes % 7.0 % LAB HEMATOLOGY METHOD 06/08/2021 4:54 PM EDT [facility] Eosinophils % 0.0 % LAB HEMATOLOGY METHOD 06/08/2021 4:54 PM EDT [facility] Basophils % 1.0 % LAB HEMATOLOGY METHOD 06/08/2021 4:54 PM EDT [facility] Immature Granulocytes % 0.0 % LAB HEMATOLOGY METHOD 06/08/2021 4:54 PM EDT [facility] Neutrophils Absolute 3.88 1.60 - 6.10 10*3/uL LAB HEMATOLOGY METHOD 06/08/2021 4:54 PM EDT [facility] Lymphocytes Absolute 1.35 1.20 - 3.90 10*3/uL LAB HEMATOLOGY METHOD 06/08/2021 4:54 PM EDT [facility] Monocytes Absolute 0.38 0.30 - 0.90 10*3/uL LAB HEMATOLOGY METHOD 06/08/2021 4:54 PM EDT [facility] Eosinophils Absolute 0.02 0.00 - 0.50 10*3/uL LAB HEMATOLOGY METHOD 06/08/2021 4:54 PM EDT [facility] Basophils Absolute 0.04 0.00 - 0.10 10*3/uL LAB HEMATOLOGY METHOD 06/08/2021 4:54 PM EDT [facility] Immature Granulocytes Absolute 0.02 0.00 - 0.06 10*3/uL LAB HEMATOLOGY METHOD 06/08/2021 4:54 PM EDT [facility] Blood Venous blood specimen / Unknown Venipuncture / Unknown 06/08/2021 3:59 PM EDT 06/08/2021 4:06 PM EDT Narrative [facility] - 06/08/2021 4:54 PM EDT Therapeutic decision making should be based on absolute values, rather than percentages. Stephanie Narayand WORLDWIDE CHIEF CREATIVE OFFICER LAB BLOOD ORDERABLES Final Re sult Performing Organization Address City/[facility] Co de Phone Number [facility] [address] [place] [address] * Lactic acid, venous (06/08/2021 3:59 PM EDT) Lactate, Venous, Whole Blood 1.5 0.5 - 2.2 mmol/L LAB HEMATOLOGY METHOD 06/08/2021 4:09 PM EDT [facility] Blood Venous blood specimen / Unknown Venipuncture / Unknown 06/08/2021 3:59 PM EDT 06/08/2021 4:06 PM EDT Stephanie Narayand WORLDWIDE CHIEF CREATIVE OFFICER LAB BLOOD ORDERABLES Final Re sult Performing Organization Address [facility] Co de Phone Number [facility] [address] [place] [address] * Lipase (06/08/2021 3:59 PM EDT) Lipase, Plasma 44 19 - 63 U/L 06/08/2021 4:31 PM EDT [facility] Blood Venous blood specimen / Unknown Venipuncture / Unknown 06/08/2021 3:59 PM EDT 06/08/2021 4:06 PM EDT Stephanie Narayand WORLDWIDE CHIEF CREATIVE OFFICER LAB BLOOD ORDERABLES Final Re sult Performing Organization Address City/[facility] Co de Phone Number [facility] [address] [place] [address] * (ABNORMAL) CMP (06/08/2021 3:59 PM EDT) Glucose, Plasma 105(H) 74 - 99 mg/dL 06/08/2021 4:31 PM EDT [facility] BUN, Plasma 7 7 - 21 mg/dL 06/08/2021 4:31 PM EDT [facility] Creatinine, Plasma 0.78 0.60 - 1.10 mg/dL 06/08/2021 4:31 PM EDT [facility] BUN/Creatinine Ratio 9 06/08/2021 4:31 PM EDT [facility] Sodium, Plasma 137 136 - 145 mmol/L 06/08/2021 4:31 PM EDT [facility] Potassium, Plasma 3.8 3.7 - 4.8 mmol/L 06/08/2021 4:31 PM EDT [facility] Comment:Reference range for Serum potassium is 0.2 to 0.5 mmol/L higher than Plasma range. Chloride, Plasma 101 97 - 107 mmol/L 06/08/2021 4:31 PM EDT [facility] CO2, Plasma 24 22 - 29 mmol/L 06/08/2021 4:31 PM EDT [facility] Anion Gap 12 6 - 16 mmol/L 06/08/2021 4:31 PM EDT [facility] Total Calcium, Plasma 9.4 8.9 - 10.2 mg/dL 06/08/2021 4:31 PM EDT [facility] Total Protein 7.6 6.3 - 7.9 g/dL 06/08/2021 4:31 PM EDT [facility] Albumin, Plasma 4.5 3.5 - 5.2 g/dL 06/08/2021 4:31 PM EDT [facility] AST, Plasma 16 11 - 32 U/L 06/08/2021 4:31 PM EDT [facility] Comment:Hemolyzed, result ma y be falsely increased. ALT, Plasma 14 8 - 33 U/L 06/08/2021 4:31 PM EDT [facility] Alkaline Phosphatase, Plasma 102 35 - 104 U/L 06/08/2021 4:31 PM EDT [facility] Total Bilirubin, Plasma 0.3 0.2 - 1.1 mg/dL 06/08/2021 4:31 PM EDT [facility] eGFR >60 >60 mL/min/1.7 3m*2 06/08/2021 4:31 PM EDT [facility] Comment:eGFR = [...] eGFR, if AFR/AM >60 >60 mL/min/1.7 3m*2 06/08/2021 4:31 PM EDT [facility] Comment:eGFR = estimated GFR ; [...] blood specimen / Unknown Venipuncture / Unknown 06/08/2021 3:59 PM EDT 06/08/2021 4:06 PM EDT us Stephanie Olivarez APRN LAB BLOOD ORDERABLES Final Re sult [facility] [address] [place] [address] documented in this encounter Visit Diagnoses Diagnosis Epigastric pain- Primary Abdominal pain, epigastric Chronic pancreatitis, unspecified pancreatitis type (CMS/HCC) documented in this encounter Administered Medications Inactive Administered Medications - up to 3 most recent administrations Medication Order MAR Action Action Date Dose Rate Site diphenhydrAMINE (BENADryl) injection 50 mg 50 mg, Intravenous, Once, 1 dose, On 06/08/21 at 1715, Routine Given 06/08/2021 5:13 PM EDT 50 mg droperidol (Inapsine) injection 2.5 mg 2.5 mg, Intravenous, Once, 1 dose, On 06/08/21 at 1545, Routine Given 06/08/2021 4:06 PM EDT 2.5 mg HYDROmorphone (Dilaudid) injection 1 mg 1 mg, Intramuscular, Once, 1 dose, On 06/08/21 at 1725, STAT Given 06/08/2021 6:00 PM EDT 1 mg Right Ventrogluteal lactated Ringer's infusion 1,000 mL 1,000 mL, Intravenous, Once, 1 dose, On 06/08/21 at 1545, STAT New Bag 06/08/2021 4:06 PM EDT 1,000 mL ondansetron (Zofran) injection 4 mg 4 mg, Intramuscular, Once, 1 dose, On 06/08/21 at 1725, STAT Given 06/08/2021 6:01 PM EDT 4 mg Right Ventrogluteal documented in this encounter Active and Recently Administered Medications Times are shown in EDT. Scheduled Medication Order 06/06/2021 06/07/2021 06/08/2021 diphenhydrAMINE (BENADryl) injection 50 mg (COMPLETED) 50 mg, Intravenous, Once, 1 dose, On 06/08/21 at 1715, Routine 1713 (Given - Provid er: Andrew Gonzalez RN) droperidol (Inapsine) injection 2.5 mg (COMPLETED) 2.5 mg, Intravenous, Once, 1 dose, On 06/08/21 at 1545, Routine 1606 (Given - Provid er: Lia Purcell) HYDROmorphone (Dilaudid) injection 1 mg (COMPLETED) 1 mg, Intramuscular, Once, 1 dose, On 06/08/21 at 1725, STAT 1800 (Given - Provid er: Lia Purcell) lactated Ringer's infusion 1,000 mL (COMPLETED) 1,000 mL, Intravenous, Once, 1 dose, On 06/08/21 at 1545, STAT 1606 (New Bag - Prov ider: Lia Purcell)1808 (Stopped - Provider: Lia Purcell) ondansetron (Zofran) injection 4 mg (COMPLETED) 4 mg, Intramuscular, Once, 1 dose, On 06/08/21 at 1725, STAT 1801 (Given - Provid er: Lia Purcell) documented in this encounter Additional Health Concerns Assessment Noted Time A fall risk assessment has been complete d for the patient 11/21/2020 2:30 PM EDT documented as of this encounter Care Teams Invoicing Machine Operator Relationship Specialty Start Date End Date Elmo Escobar MD PCP - General 10/18/20 01/05/23 documented as of this encounter
--- OUTSIDE RECORDS SUMMARY | 2024-02-03 15:25 | XMS_ITS | Encounter Summary ---
Author Organization [facility] Address [address] [place] [address] Care Team Providers Care It Network Architect Name Role Phone Elmo Escobar MD Primary Care Provider [phone] Encounter Details Date Type Department Care Team (Latest Contact Info) Description 06/20/2021 Travel Social History Tobacco Use Types Packs/Day [...] as of this encounter Care Teams It Network Architect Relationship Specialty Start Date End Date Elmo Escobar MD PCP - General 10/18/20 01/05/23 documented as of this encounter
--- OUTSIDE RECORDS SUMMARY | 2024-02-03 15:25 | XMS_ITS | Encounter Summary ---
Author Organization [facility] Address [address] [place] [address] Care Team Providers Care Absorption Plant Operator Name Role Phone Elmo Escobar MD Primary Care Provider [phone] Encounter Details Date Type Department Care Team (Latest Contact Info) Description 05/09/2021 Travel Social History Tobacco Use Types Packs/Day [...] documented as of this encounter Care Teams Absorption Plant Operator Relationship Specialty Start Date End Date lEmo Escobar MD PCP - General 10/18/20 01/05/23 documented as of this encounter
--- OUTSIDE RECORDS SUMMARY | 2024-02-03 15:25 | XMS_ITS | Encounter Summary ---
Author Organization [facility] Address [address] [place] [address] Care Team Providers Care Machining Supervisor Name Role Phone Elmo Escobar MD Primary Care Provider [phone] Encounter Details Date Type Department Care Team (Latest Contact Info) Description 05/21/2021 Travel Social History Tobacco Use Types Packs/Day [...] documented as of this encounter Care Teams Machining Supervisor Relationship Specialty Start Date End Date Elmo Escobar MD PCP - General 10/18/20 01/05/23 documented as of this encounter
--- OUTSIDE RECORDS SUMMARY | 2024-02-03 15:26 | XMS_ITS | Encounter Summary ---
Author Organization Healthcare Address [address] [place] [address] Care Team Providers Care Spindle Tester Name Role Phone Elmo Escobar MD Primary Care Provider [phone] Encounter Details Date Type Department Care Team (Late st Contact Info) Description 05/01/2021 Telephone [facility] [address] [place] [address] Tonya Sy, PA [address] [place] [address] Social History Tobacco Use Types Packs/Day Years [...] encounter Miscellaneous Notes * Telephone Encounter - Tiffanie Pearson RN - 05/13/2021 9:31 AM EDT Triage received another discharge referral on pt. Need to know if pt needs to be worked in with tonya sooner than scheduled Cindy appt or Advanced. Advanced providers' first available is early June * Telephone Encounter - Tonya Sy PA - 05/03/2021 8:25 AM EST Hey, Not yet. This patient is very challenging. A lot of issues going on right now, including non gi things such as poly substance abuse. Can you let the mom know that I am speaking with the advanced teamand will get back with her next week? Thanks * Telephone Encounter - Hetal Redman RN - 05/02/2021 1:37 PM EST Were you able to speak with patient's mom? * Telephone Encounter - Asiya Nicole - 05/01/2021 8:47 AM EST Patient Phone Message Reason for Call: Yossi pt's mother called to reschedule today's appointment because the pt is in the hospital at . The pt was rescheduled to the first available date of 09/17/21 and is concerned that pt keeps ending up in the hospital. Pls advise Best contact number and optimal time of day to reach caller: Asiya [phone] Note: Please do not reply to this message. Follow-up communication and further actions as a result of this message need to be communicated with the patient directly, if the patient is not active onMyChart. If the patient is active on MyChart, they will receive notification of the communication/outcome via [employer]. documented in this encounter Plan of Treatment Not on file documented as of this encounter Visit Diagnoses Not on filedocumented in this encounter Additional Health Concerns Assessment Noted Time A fall risk assessment has been complete d for the patient 11/21/2020 2:30 PM EDT documented as of this encounter Care Teams Spindle Tester Relationship Specialty Start Date End Date Elmo Escobar MD PCP - General 10/18/20 01/05/23 documented as of this encounter
--- OUTSIDE RECORDS SUMMARY | 2024-02-03 15:26 | XMS_ITS | Encounter Summary ---
Author Organization [facility] Address [address] [place] [address] Care Team Providers Care Street Light Repairer Name Role Phone Elmo Escobar MD Primary Care Provider [phone] Encounter Details Date Type Department Care Team (Latest Contact Info) Description 04/26/2021 Travel Social History Tobacco Use Types Packs/Day [...] have Coronavirus / COVID-19? No / Unsure 04/26/2021 12:00 PM EST documented as of this encounter Plan of Treatment Not on file documented as of this encounter Visit Diagnoses Not on filedocumented in this encounter Additional Health Concerns Assessment Noted Time A fall risk assessment has been complete d for the patient 11/21/2020 2:30 PM EDT documented as of this encounter Care Teams Street Light Repairer Relationship Specialty Start Date End Date Elmo Escobar MD PCP - General 10/18/20 01/05/23 documented as of this encounter
--- OUTSIDE RECORDS SUMMARY | 2024-02-03 15:26 | XMS_ITS | Encounter Summary ---
Author Organization Healthcare Address [address] [place] [address] Care Team Providers Care Pharmacy Sales Representative Name Role Phone Elmo Escobar MD Primary Care Provider [phone] Reason for Visit * Reason Comments Abdominal Pain Encounter Details Date Type Department Care Team (Late st Contact Info) Description 04/28/2021 5:00 AM EST - 04/28/2021 6:22 AM EST Emergency [facility] Emergency Department [address] [place] [address] Carter Donis MD [address] [place] [address] Epigastric pain (Primary Dx) Discharge [...] have Coronavirus / COVID-19? No / Unsure 04/28/2021 4:56 AM EST documented as of this encounter Last Filed Vital Signs Vital Sign Reading Time Taken Comments Blood Pressure 138/98 04/28/2021 5:40 AM EST Pulse 84 04/28/2021 5:40 AM EST Temperature 36.7 ??C (98.1 ??F) 04/28/2021 5:40 AM ES T Respiratory Rate 16 04/28/2021 5:40 AM EST Oxygen Saturation 97% 04/28/2021 5:40 AM EST Inhaled Oxygen Concentration - - Weight 94.3 kg (208 lb) 04/28/2021 4:59 AM EST Height 165.1 cm (5' 5 ) 04/28/2021 4:59 AM EST Body Mass Index 34.61 04/28/2021 4:59 AM EST documented in this encounter Discharge Instructions * Attachments The following attachments cannot be sent through Care Everywhere. * Pain, Complementary Care for (I[place]ic) documented in this encounter Medications at Time of Discharge acetaminophen (Tylenol) 500 MG tablet Take 1,000 mg by mouth every 6 (six) hours if needed for mild pain. 3 fluconazole (Diflucan) 150 MG tablet Take 1 tablet (150 mg total) by mouth 1 (one) time per week for 21 days. 3 tablet 04/23/2021 2 HYDROcodone-acet aminophen ([place]) 5-325 MG tablet Take 2 tablets by mouth every 6 (six) hours if needed for severe pain for up to 3 days. 11 tablet 04/28/2021 2 Latuda 40 MG tablet Take 40 mg by mouth 1 (one) time each day with breakfast. 10/14/2020 3 lidocaine (Lidoderm) 5 % patch Apply 1 patch topically if needed (shoulder). 2 Melatonin 10 MG tablet Take 10 tablets by mouth at night if needed (sleep). 2 naloxone (Narcan) 4 mg/0.1 mL nasal sprayIndications :Opioid Overdose Administer 1 spray (4 mg total) into affected nostril(s) if needed for opioid reversal or respiratory depression. Call 911. Give 4 mg (1 spray) into one nostril. Repeat every 2-3 minutes as needed, alternating nostrils, until medical assistance arrives. 1 each 2 02/10/2021 2 oxyCODONE (Roxicodone) 10 MG immediate release tablet Take 1 tablet (10 mg total) by mouth every 8 (eight) hours if needed (severe pain). May take 2 tablets (20mg) once for severe, uncontrolled pain, then call primary MD. 10 tablet 04/24/2021 2 pancrelipase, Swc-Viel-Diba, (Creon) [address]96-[address]58 units capsule Take 2 capsules by mouth 3 (three) times a day with meals. 3 pantoprazole (Protonix) 40 MG EC tablet Take 1 tablet (40 mg total) by mouth 2 (two) times a day. Do not crush, chew, or split. 120 tablet 04/20/2021 3 pregabalin (Lyrica) 300 MG capsule Take 1 capsule (300 mg total) by mouth 2 (two) times a day for 3 days. 6 capsule 04/24/2021 2 sucralfate (Carafate) 1 GM/10ML suspension Take 10 mL (1 g total) by mouth every 6 (six) hours. 1200 mL 04/20/2021 2 venlafaxine XR (Effoxor-XR) 150 MG 24 hr capsule Take 150 mg by mouth 1 (one) time each day. 07/07/2020 3 documented as of this encounter Miscellaneous Notes * ED Provider Notes - Carter Donis MD - 04/28/2021 4:52 AM EST HPI Chief Complaint Patient presents with ??? Abdominal Pain Lila Mcnally is a 35 y.o. female with a h/o chronic pancreatitis, fibromyalgia, GERD, HTN who presents to ED with abdominal pain. Pt reports stabbing epigastric and L sided abdominal pain that radiates to her back with associated nausea and diarrhea. Pt states it feels similar to her previous pa ncreatitis flare ups. Per medical records, pt was discharged on 3/2 for pancreatitis and came to the ED on 3 for the same symptoms. Pt also reports generalized weakness which is new. Pt denies vomiting, fever, chills, cough, SOA, and chest pain. 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 by: Patient and medical records registered travel nurse used: No No data recorded Patient History [...] fatigue and fever. HENT: Negative for congestion, sore throat and trouble swallowing. Eyes: Negative for discharge and redness. Respiratory: Negative for cough and shortness of breath. Cardiovascular: Negative for chest pain and leg swelling. Gastrointestinal: Positive for abdominal pain, diarrhea and nausea. Negative for vomiting. Endocrine: Negative for polydipsia and polyuria. Genitourinary: Negative for difficulty urinating, dyspareunia, flank pain, frequency and hematuria. Musculoskeletal: Negative for joint swelling and myalgias. Skin: Negative for pallor and wound. Neurological: Positive for weakness. Negative for light-headedness, numbness and headaches. Physical Exam ED Triage Vitals Temp Pulse [...] Abdomen is flat. There is no distension. Musculoskeletal: General: No deformity. Normal range of [...] Course & MDM Clinical Impressions as of 04/28/21 2353 Epigastric pain Lab Results: Labs Reviewed CBC WITH AUTO DIFFERENTIAL - Abnormal Result Value WBC Count 5.70 RBC Count 4.35 HGB 11.8 HCT 37.0 Platelet Count 185 MCV 85 MCH 27.1 MCHC 31.9 RDW 15.0 (*) MPV 10.3 nRBC 0.0 Differential Type Automated Neutrophils % 62.0 Lymphocytes % 31.0 Monocytes % 6.0 Eosinophils % 0.0 Basophils % 1.0 Immature Granulocytes % 0.0 Neutrophils Absolute 3.49 Lymphocytes Absolute 1.79 Monocytes Absolute 0.36 Eosinophils Absolute 0.01 Basophils Absolute 0.03 Immature Granulocytes Absolute 0.02 LIPASE, PLASMA - Abnormal Lipase, Plasma 123 (*) URINALYSIS WITH REFLEX MICROSCOPIC - Abnormal Color, Urine Yellow Clarity, Urine Clear Spec [place], Urine 1.022 pH, Urine 7.5 Protein, Urine Negative Glucose, Urine Negative Ketones, Urine Negative Blood, Urine Negative Bilirubin, Urine Negative Urobilinogen, Urine 1.0 Leukocytes, Urine Trace (*) Nitrite, Urine Negative RBC, Urine <1 WBC, Urine 0 - 5 Squamous Epithelial Cells 6 - 10 (*) Hyaline Casts 0 - 8 Bacteria, Urine Present LACTATE, VENOUS - Normal Lactate, Venous, Whole Blood 1.7 COMPREHENSIVE METABOLIC PANEL, PLASMA Glucose, Plasma 87 BUN, Plasma 11 Creatinine, Plasma 0.65 BUN/Creatinine Ratio 17 Sodium, Plasma 137 Potassium, Plasma 4.2 Chloride, Plasma 104 CO2, Plasma 23 Anion Gap 10 Total Calcium, Plasma 9.2 Total Protein 6.8 Albumin, Plasma 4.2 AST, Plasma 16 ALT, Plasma 16 Alkaline Phosphatase, Plasma 85 Total Bilirubin, Plasma 0.2 eGFR >60 eGFR, if AFR/AM >60 URINALYSIS MICROSCOPIC FOR UA REFLEX Imaging Results: No orders to display ED Disposition: Discharge MDM Number of Diagnoses or Management Options Epigastric pain Diagnosis management comments: Lila Mcnally is a 35 y.o. female with a h/o chronic pancreatitis, fibromyalgia, GERD, HTN who presents to ED with abdominal pain. Labs including a Comprehensive Metabolic Panel, CBC and Differential, Lipase, Lactate, Urinalysis with reflex microscopic were ordered. Medications including IV Zofran, IV sodium chloride 0.9% infusion, and IV Sublimaze were given. Overall she is well-appearing upon arrival with only mild tenderness. Of note tenderness is not reproducible when pressing with [place] of the stethoscope. Prior records obtained reviewed demonstrating multiple evaluations for abdominal pain with unclear etiology however chronic pancreatitis remains on the differential as well as acute pancreatitis, gastritis, duodenitis, ulcerative disease. Laboratory studies obtained reviewed and overall appears close to patient's baseline with mild elevation inlipase but no significant metabolic derangement or leukocytosis. Patient feeling improved after that no, discharged with [place] prescription Amount and/or Complexity of Data Reviewed Clinical lab tests: reviewed Decide to obtain previous medical records or to obtain history from someone other than the patient:yes Obtain history from someone other than the patient: yes (Mother) Last PDMP Review: Carter Donis MD on 04/28/2021 6:12 AM ED Prescriptions Medication Sig Dispense Start Date End Date Auth. Provider HYDROcodone-acetaminophen ([place]) 5-325 MG tablet Take 2 tablets by mouth every 6 (six) hours if needed for severe pain for up to 3 days. 11 tablet 04/28/2021 05/01/2021 Carter Donis MD 04/28/2021, 11:53 PM Scribe Attestation: This note was dictated to me, Carter Donis MD, acting as a scribe for Dr. Baumann att. providers found. Attending Attestation: This documentation was recorded by Carter Donis MD acting as a scribe in my presence at the time of the encounter and accurately reflects the service I personally performed andthe decisions made by me. Sign Off Checklist Clinical Impression: Complete ED Disposition: Complete Carter Donis MD 04/28/21 4549 * ED Triage Notes - Abigail Dial - 04/28/2021 4:52 AM EST Pt endorses a hx of chronic pancreatitis. States she was just here the other day but tonight she has had such severe pain that she has been unable to sleep. Also states she is having diarrhea and nausea. documented in this encounter Plan of Treatment Not on file documented as of this encounter Procedures Procedure Name Priority Date/Time Associated Diagnosis Comments URINALYSIS MICROSCOPIC FOR UA REFLEX STAT 04/28/2021 5:39 AM EST URINALYSIS WITH REFLEX MICROSCOPIC STAT 04/28/2021 5:39 AM EST LACTATE, VENOUS STAT 04/28/2021 5:33 AM EST CBC WITH AUTO DIFFERENTIAL STAT 04/28/2021 5:33 AM EST LIPASE, PLASMA STAT 04/28/2021 5:33 AM EST COMPREHENSIVE METABOLIC PANEL, PLASMA STAT 04/28/2021 5:33 AM EST documented in this encounter Results * Urinalysis Microscopic Examination (04/28/2021 5:39 AM EST) Urine Urine specimen obtained by clean catch procedure / Unknown Non-blood Collection / Unknown 04/28/2021 5:39 AM EST 04/28/2021 5:43 AM EST us Carter Donis MD LAB URINE ORDERABLES Final Resul t [facility] [address] [place] [address] * (ABNORMAL) Urinalysis with reflex microscopic (04/28/2021 5:39 AM EST) Color, Urine Yellow LAB URINALYSIS - AUTOMATED METHOD 04/28/2021 5:57 AM [facility] Clarity, Urine Clear LAB URINALYSIS - AUTOMATED METHOD 04/28/2021 5:57 AM [facility] Spec [place], Urine 1.022 <=1.005 to >=1.030 LAB URINALYSIS - AUTOMATED METHOD 04/28/2021 5:57 AM [facility] pH, Urine 7.5 4.5 to 8 LAB URINALYSIS - AUTOMATED METHOD 04/28/2021 5:57 AM [facility] Protein, Urine Negative Negative mg/dL LAB URINALYSIS - AUTOMATED METHOD 04/28/2021 5:57 AM [facility] Glucose, Urine Negative Negative mg/dL LAB URINALYSIS - AUTOMATED METHOD 04/28/2021 5:57 AM [facility] Ketones, Urine Negative Negative mg/dL LAB URINALYSIS - AUTOMATED METHOD 04/28/2021 5:57 AM [facility] Blood, Urine Negative Negative LAB URINALYSIS - AUTOMATED METHOD 04/28/2021 5:57 AM [facility] Bilirubin, Urine Negative Negative LAB URINALYSIS - AUTOMATED METHOD 04/28/2021 5:57 AM [facility] Urobilinogen, Urine 1.0 0.2 to 1.0 mg/dL LAB URINALYSIS - AUTOMATED METHOD 04/28/2021 5:57 AM [facility] Leukocytes, Urine Trace(A) Negative LAB URINALYSIS - AUTOMATED METHOD 04/28/2021 5:57 AM [facility] Nitrite, Urine Negative Negative LAB URINALYSIS - AUTOMATED METHOD 04/28/2021 5:57 AM [facility] RBC, Urine <1 0 to 3 /HPF 04/28/2021 5:57 AM [facility] Comment:This result was prev iously suppressed from the chart. WBC, Urine 0 - 5 0 to 5 /HPF 04/28/2021 5:57 AM [facility] Comment:This result was prev iously suppressed from the chart. Squamous Epithelial Cells 6 - 10(A) 0 to 5 /HPF 04/28/2021 5:57 AM [facility] Comment:This result was prev iously suppressed from the chart. Hyaline Casts 0 - 8 0 to 8 /LPF 04/28/2021 5:57 AM EST [facility] Comment:This result was prev iously suppressed from the chart. Bacteria, Urine Present Negative 04/28/2021 5:57 AM EST [facility] Comment:This result was prev iously suppressed from the chart. Urine Urine specimen obtained by clean catch procedure / Unknown Non-blood Collection / Unknown 04/28/2021 5:39 AM EST 04/28/2021 5:43 AM EST us Carter Donis MD LAB URINE ORDERABLES Final Resul t Performing Organization Address [facility] de Phone Number [facility] [address] [place] [address] * Lactate, venous (04/28/2021 5:33 AM EST) Lactate, Venous, Whole Blood 1.7 0.5 - 2.2 mmol/L LAB HEMATOLOGY METHOD 04/28/2021 5:45 AM EST [facility] Blood Venous blood specimen / Unknown Venipuncture / Unknown 04/28/2021 5:33 AM EST 04/28/2021 5:43 AM EST Carter Donis MD LAB BLOOD ORDERABLES Final Resul t Performing Organization Address [facility] de Phone Number [facility] [address] [place] [address] * (ABNORMAL) Lipase, Plasma (04/28/2021 5:33 AM EST) Lipase, Plasma 123(H) 19 - 63 U/L 04/28/2021 6:05 AM EST [facility] Blood Venous blood specimen / Unknown Venipuncture / Unknown 04/28/2021 5:33 AM EST 04/28/2021 5:43 AM EST us Carter Donis MD LAB BLOOD ORDERABLES Final Resul t Performing Organization Address [facility] Co de Phone Number [facility] [address] [place] [address] * (ABNORMAL) CBC and Differential (04/28/2021 5:33 AM EST) [facility] WBC Count 5.70 3.70 - 10.30 10*3/uL LAB HEMATOLOGY METHOD 04/28/2021 5:45 AM EST [facility] RBC Count 4.35 3.90 - 5.20 10*6/uL LAB HEMATOLOGY METHOD 04/28/2021 5:45 AM EST [facility] HGB 11.8 11.2 - 15.7 g/dL LAB HEMATOLOGY METHOD 04/28/2021 5:45 AM EST [facility] HCT 37.0 34.0 - 45.0 % LAB HEMATOLOGY METHOD 04/28/2021 5:45 AM EST [facility] Platelet Count 185 155 - 369 10*3/uL LAB HEMATOLOGY METHOD 04/28/2021 5:45 AM EST [facility] MCV 85 79 - 98 fL LAB HEMATOLOGY METHOD 04/28/2021 5:45 AM EST [facility] MCH 27.1 26.0 - 32.0 pg LAB HEMATOLOGY METHOD 04/28/2021 5:45 AM EST [facility] MCHC 31.9 30.7 - 35.5 g/dL LAB HEMATOLOGY METHOD 04/28/2021 5:45 AM EST [facility] RDW 15.0(H) 11.5 - 14.5 % LAB HEMATOLOGY METHOD 04/28/2021 5:45 AM EST [facility] MPV 10.3 8.8 - 12.5 fL LAB HEMATOLOGY METHOD 04/28/2021 5:45 AM EST [facility] nRBC 0.0 <=0.0 per 100 WBCs LAB HEMATOLOGY METHOD 04/28/2021 5:45 AM EST [facility] Differential Type Automated LAB HEMATOLOGY METHOD 04/28/2021 5:45 AM EST [facility] Neutrophils % 62.0 % LAB HEMATOLOGY METHOD 04/28/2021 5:45 AM EST [facility] Lymphocytes % 31.0 % LAB HEMATOLOGY METHOD 04/28/2021 5:45 AM EST [facility] Monocytes % 6.0 % LAB HEMATOLOGY METHOD 04/28/2021 5:45 AM EST [facility] Eosinophils % 0.0 % LAB HEMATOLOGY METHOD 04/28/2021 5:45 AM EST [facility] Basophils % 1.0 % LAB HEMATOLOGY METHOD 04/28/2021 5:45 AM EST [facility] Immature Granulocytes % 0.0 % LAB HEMATOLOGY METHOD 04/28/2021 5:45 AM EST [facility] Neutrophils Absolute 3.49 1.60 - 6.10 10*3/uL LAB HEMATOLOGY METHOD 04/28/2021 5:45 AM EST [facility] Lymphocytes Absolute 1.79 1.20 - 3.90 10*3/uL LAB HEMATOLOGY METHOD 04/28/2021 5:45 AM EST [facility] Monocytes Absolute 0.36 0.30 - 0.90 10*3/uL LAB HEMATOLOGY METHOD 04/28/2021 5:45 AM EST [facility] Eosinophils Absolute 0.01 0.00 - 0.50 10*3/uL LAB HEMATOLOGY METHOD 04/28/2021 5:45 AM EST [facility] Basophils Absolute 0.03 0.00 - 0.10 10*3/uL LAB HEMATOLOGY METHOD 04/28/2021 5:45 AM EST [facility] Immature Granulocytes Absolute 0.02 0.00 - 0.06 10*3/uL LAB HEMATOLOGY METHOD 04/28/2021 5:45 AM EST [facility] Blood Venous blood specimen / Unknown Venipuncture / Unknown 04/28/2021 5:33 AM EST 04/28/2021 5:43 AM EST us Carter Donis MD LAB BLOOD ORDERABLES Final Resul t [facility] [address] [place] [id number] * Comprehensive Metabolic Panel, Plasma (04/28/2021 5:33 AM EST) Glucose, Plasma 87 74 - 99 mg/dL 04/28/2021 6:05 AM EST [facility] BUN, Plasma 11 7 - 21 mg/dL 04/28/2021 6:05 AM EST [facility] Creatinine, Plasma 0.65 0.60 - 1.10 mg/dL 04/28/2021 6:05 AM EST [facility] BUN/Creatinine Ratio 17 04/28/2021 6:05 AM EST [facility] Sodium, Plasma 137 136 - 145 mmol/L 04/28/2021 6:05 AM EST [facility] Potassium, Plasma 4.2 3.7 - 4.8 mmol/L 04/28/2021 6:05 AM EST [facility] Comment:Reference range for Serum potassium is 0.2 to 0.5 mmol/L higher than Plasma range. Chloride, Plasma 104 97 - 107 mmol/L 04/28/2021 6:05 AM [facility] CO2, Plasma 23 22 - 29 mmol/L 04/28/2021 6:05 AM [facility] Anion Gap 10 6 - 16 mmol/L 04/28/2021 6:05 AM [facility] Total Calcium, Plasma 9.2 8.9 - 10.2 mg/dL 04/28/2021 6:05 AM [facility] Total Protein 6.8 6.3 - 7.9 g/dL 04/28/2021 6:05 AM [facility] Albumin, Plasma 4.2 3.5 - 5.2 g/dL 04/28/2021 6:05 AM [facility] AST, Plasma 16 11 - 32 U/L 04/28/2021 6:05 AM [facility] ALT, Plasma 16 8 - 33 U/L 04/28/2021 6:05 AM [facility] Alkaline Phosphatase, Plasma 85 35 - 104 U/L 04/28/2021 6:05 AM [facility] Total Bilirubin, Plasma 0.2 0.2 - 1.1 mg/dL 04/28/2021 6:05 AM [facility] eGFR >60 >60 mL/min/1.7 3m*2 04/28/2021 6:05 AM [facility] Comment:eGFR = estimated GFR ; eGFR units = mL/min/1.73 sq meters Chronic Kidney Disease is considered if eGFR <60 mL/min/1.73 sq meters Kidney failure is considered if eGFR is <15 mL/min/1.73 sq meters. eGFR assumes steady state plasma creatinine concentration; not applicable if renal function is rapidly changing or patient is on dialysis. eGFR, if AFR/AM >60 >60 mL/min/1.7 3m*2 04/28/2021 6:05 AM [facility] Comment:eGFR = estimated GFR ; [...] blood specimen / Unknown Venipuncture / Unknown 04/28/2021 5:33 AM EST 04/28/2021 5:43 AM EST us Carter Donis MD LAB BLOOD ORDERABLES Final Resul t [facility] [address] [place] [phone] documented in this encounter Visit Diagnoses Diagnosis Epigastric pain- Primary Abdominal pain, epigastric documented in this encounter Administered Medications Inactive Administered Medications - up to 3 most recent administrations Medication Order MAR Action Action Date Dose Rate Site fentaNYL (Sublimaze) injection 50 mcg 50 mcg, Intravenous, Once, 1 dose, On 04/28/21 at 0515, STAT Given 04/28/2021 5:34 AM EST 50 mcg ondansetron (Zofran) injection 4 mg 4 mg, Intravenous, Once, 1 dose, On 04/28/21 at 0515, STAT Given 04/28/2021 5:34 AM EST 4 mg oxyCODONE (Roxicodone) immediate release tablet 10 mg 10 mg, Oral, Every 4 hours PRN, 2 doses, Starting on 04/28/21 at 0611, Until 04/28/21 at 0822, Routine, severe pain sodium chloride 0.9 % infusion 1,000 mL, Intravenous, Once, 1 dose, On 04/28/21 at 0515, STAT New Bag 04/28/2021 5:35 AM EST 1,000 mL documented in this encounter Active and Recently Administered Medications Times are shown in EST. Scheduled Medication Order 04/26/2021 04/27/2021 04/28/2021 fentaNYL (Sublimaze) injection 50 mcg (COMPLETED) 50 mcg, Intravenous, Once, 1 dose, On 04/28/21 at 0515, STAT 0534 (Given - Provid er: Marybeth Lopez RN) ondansetron (Zofran) injection 4 mg (COMPLETED) 4 mg, Intravenous, Once, 1 dose, On 04/28/21 at 0515, STAT 0534 (Given - Provid er: Marybeth Lopez RN) sodium chloride 0.9 % infusion (COMPLETED) 1,000 mL, Intravenous, Once, 1 dose, On 04/28/21 at 0515, STAT 0535 (New Bag - Prov ider: Marybeth Lopez RN) PRN Medication Order 04/26/2021 04/27/2021 04/28/2021 oxyCODONE (Roxicodone) immediate release tablet 10 mg 10 mg, Oral, Every 4 hours PRN, 2 doses, Starting on 04/28/21 at 0611, Until 04/28/21 at 0822, Routine, severe pain 0616 (Canceled Entry - Provider: Automatic Discharge Provider - Comment: Automatically canceled at discontinue of medication order) documented in this encounter Additional Health Concerns Assessment Noted Time A fall risk assessment has been complete d for the patient 11/21/2020 2:30 PM EDT documented as of this encounter Care Teams Pharmacy Sales Representative Relationship Specialty Start Date End Date Elmo Escobar MD PCP - General 10/18/20 01/05/23 documented as of this encounter
--- OUTSIDE RECORDS SUMMARY | 2024-02-03 15:26 | XMS_ITS | Encounter Summary ---
Author Organization [facility] Address [address] [place] [address] Care Team Providers Care Looping Inspector Name Role Phone Elmo Escobar MD Primary Care Provider [phone] Encounter Details Date Type Department Care Team (Latest Contact Info) Description 04/30/2021 Travel Social History Tobacco Use Types Packs/Day [...] have Coronavirus / COVID-19? No / Unsure 04/30/2021 5:16 AM EST documented as of this encounter Plan of Treatment Not on file documented as of this encounter Visit Diagnoses Not on filedocumented in this encounter Additional Health Concerns Assessment Noted Time A fall risk assessment has been complete d for the patient 11/21/2020 2:30 PM EDT documented as of this encounter Care Teams Looping Inspector Relationship Specialty Start Date End Date Elmo Escobar MD PCP - General 10/18/20 01/05/23 documented as of this encounter
--- OUTSIDE RECORDS SUMMARY | 2024-02-03 15:26 | XMS_ITS | Encounter Summary ---
Author Organization [facility] Address [address] [place] [address] Care Team Providers Care Bank Appraiser Name Role Phone Elmo Escobar MD Primary Care Provider [phone] Encounter Details Date Type Department Care Team (Latest Contact Info) Description 04/28/2021 Travel Social History Tobacco Use Types Packs/Day [...] documented as of this encounter Care Teams Bank Appraiser Relationship Specialty Start Date End Date Elmo Escobar MD PCP - General 10/18/20 01/05/23 documented as of this encounter
--- OUTSIDE RECORDS SUMMARY | 2024-02-03 15:26 | XMS_ITS | Encounter Summary ---
Author Organization Healthcare Address [address] [place] [address] Care Team Providers Care Mold Blower Name Role Phone Elmo Escobar MD Primary Care Provider [phone] Reason for Visit * Reason Comments Pancreatitis * Auth/Cert Specialty Diagnoses / Procedures Referred By Contac t Referred To Contact Diagnoses Intractable nausea and vomiting Abdominal pain, unspecified abdominal location Lida Thomas, DO [address] [place] [address] Phone: tel: fax: [facility] [address] [place] [address] Phone: tel: Referral ID Status Reason Start Date Expiration Date Visits Re quested Visits Authorized [id number] 1 1 Encounter Details Date Type Department Care Team (Late st Contact Info) Description 04/30/2021 5:19 AM EST - 05/03/2021 11:56 AM EST Emergency [facility] [address] [place] [address] Michelle Perez MD [address] [place] [address] Lida Thomas DO [address] [place] [address] Abdominal pain, unspecified abdominal location (Primary Dx) [...] Sign Reading Time Taken Comments Blood Pressure 112/78 05/03/2021 8:12 AM EST Pulse 78 05/03/2021 8:12 AM EST Temperature 36.9 ??C (98.4 ??F) 05/03/2021 8:12 AM ES T Respiratory Rate 18 05/03/2021 6:21 AM EST Oxygen Saturation 97% 05/03/2021 8:12 AM EST Inhaled Oxygen Concentration - - Weight 94.3 kg (208 lb) 04/30/2021 5:17 AM EST Height 165.1 cm (5' 5 ) 04/30/2021 5:17 AM EST Body Mass Index 34.61 04/30/2021 5:17 AM EST documented in this encounter Discharge Instructions * Discharge Instructions* Michelle Perez MD - 04/30/2021 6:32 AM EST Please follow up with your PCP in 2 - 3 days. If you do not have one, please call [phone]. Return to the ER as needed for persistent symptoms, worsening symptoms, or for the development of any new concerning symptoms. * Attachments The following attachments cannot be sent through Care Everywhere. * Abdominal Pain, Adult (Spanish) * Opioid Medicines, Taking (Spanish) * Pain Response,??Understanding (Spanish) documented in this encounter Medications at Time [...] day. 2 tablet 05/03/2021 05/13/19 22 pancrelipase, Ysu-Rgpe-Sxpy, (Creon) [id number] units capsule Take 2 capsules by mouth [...] Progress Notes - Bernie Shaw RN - 05/03/2021 11:56 AM EST Case Management Discharge Note Rosibel Gayle 35 y.o. female CSN: [id number] Admission: 04/30/2021 5:19 AM Primary Problem: Intractable nausea and vomiting Primary Graphics Coordinator: Primary Caregiver: (self) Assistance Available at Discharge: boyfriend. Housing Circumstances-Z Codes: Housing Circumstances (select all that apply): Low Income (101-300% Federal Poverty Guidlines) - Z596 Patient Referred to Financial or Community Resources: n/a Community Resources: Other (Comment) Other : TBD Discharge Facility/Level of Care Needs: home, no needs. Patient's Choice of Community Agency(s): Patient/Family Anticipated Services at Transition: home. DME/Equipment Needed after Discharge: Assistive Devices: none Readmission Within the Last 30 Days: Medicare Documentation: n/a Follow-up: Elmo Escobar MD [address] [place] [address] Discharge Transportation: . Follow Up Transport: self Additional Comments: Bernie Shaw RN * Discharge Summary - Tereza Velazquez MD - 05/03/2021 11:15 AM EST Hospitalization Admit Date/Time: 04/30/2021 5:19 AM Admitting Attending: Lida Thomas Discharge Date: 05/03/2021 Discharge Attending Physician: Lida Thomas Do PCP name and Address: Elmo Escobar MD [facility] / [place] [address] Referring provider name and address: No referring provider defined for this encounter. Chief Concern, Brief History of Present Illness, and Hospital Course HPI Rosibel Gayle is a 35 y.o. female with history of recurrent acute pancreatitis likely 2/2 alcohol use (last drank heavily 7 years ago) fibromyalgia, polysubstance use disorder, and bipolar disorder who presented with two days of uncontrolled nausea vomiting, and LUQ stabbing abdominal pain that radiates to her back. She has had multiple ER visits in the past week due to this uncontrolled pain.Of note, she has been frequently presenting to the hospital for similar pain and requesting increasing amount of opioids. On presentation she complained of feeling nauseated and has been vomiting for the last 2 days. She was unable keep any food or drink down. She denied fever, chills, melena, hematochezia, hematemesis.Of note, she has struggled with pancreatitis flares for about 3 years. She has stopped smoking and drinking alcohol but it has not helped with her pain. In 11/2020, she had an ERCP and sphincterotomyto evaluate for Sphincter of Oddi dysfunction. In the ED, the patient has stable vital signs and unremarkable labs including lipase. CT scan on 04/24 without concerning acute findings. Hospital Course Patient was admitted for intractable nausea/vomiting and LUQ stabbing abdominal pain that radiates to her back that is most consistent with flare of chronic pancreatitis. No evidence of acute pancreatitis on imaging and lipase was normal. Additionally, found to likely have component of pain due to known erosive gastropathy with healing erosions as noted on prior admissions. Patient also with significant opiate use outpatient and may have some opioid hyperalgesia contributing as well as functional pain. Treated symptomatically with anti-emetics and multimodal pain control including tylenol, lyrica, and oxycodone. IV pain medications were able to avoided during admission. She was also restarted on POPPI BID. Diet was advanced as tolerate by patient and by time of discharge she was able to toleratePO diet. Discharged with oxycodone 15mg q4h as needed for severe pain. Only provided 2 tablets given has appointment with PCP this afternoon for ongoing chronic pain management. Also provided zofran and phenergan for nausea/vomiting as needed. Surgeries and Procedures None Medication List .. acetaminophen 500 MG tablet Commonly known as: Tylenol Take 1,000 mg by mouth every 6 (six) hours if needed for mild pain. fluconazole 150 MG tablet Commonly known as: Diflucan Take 1 tablet (150 mg total) by mouth 1 (one) time per week for 21 days. Latuda 40 MG tablet Generic drug: lurasidone Take 40 mg by mouth 1 (one) time each day with breakfast. Lidoderm 5 % patch Generic drug: lidocaine Apply 1 patch topically if needed (shoulder). Melatonin 10 MG tablet Take 10 tablets [...] moderate pain for up to 1 day. pancrelipase (Nyp-Qhgp-Jpmv) [id number] units capsule Commonly known as: Creon Take [...] mouth 2 (two) times a day. promethazine 12.5 MG tablet Commonly known as: Phenergan Take 1 tablet (12.5 mg total) by mouth every 6 (six) hours if needed for nausea or vomiting for up to 7 days. sucralfate 1 GM/10ML suspension Commonly known as: Carafate Take 10 mL (1 g total) by mouth every 6 (six) hours. venlafaxine XR 150 MG 24 hr capsule Commonly known as: Effoxor-XR Take 150 mg by mouth 1 (one) time each day. Where to Get Your Medications These medications were sent to [facility] [place] [address] [address] [place] [address] ?? ondansetron ODT 8 MG disintegrating tablet ?? oxyCODONE 15 MG immediate release tablet ?? promethazine 12.5 MG tablet Discharge Diagnosis Medical Problems Active and Resolved Hospital Problems Hospital * (Principal) RESOLVED: Intractable nausea and vomiting Post Discharge Instructions Follow up with PCP this afternoon as scheduled. Outpatient Follow-Up Future Appointments Date Time Provider Department Center 09/17/2021 3:40 PM DANIA Gunn [facility] Test Results Pending At Discharge None Pertinent Physical Exam At Time of Discharge Physical Exam Constitutional: General: She is not in acute distress. Appearance: She is not toxic-appearing. HENT: Head: Normocephalic and atraumatic. Eyes: Extraocular [...] in preparation for this discharge. Cosigned by Lida Thomas DO at 05/03/2021 12:31 PM EST Associated attestation - Lida Thomas DO - 05/03/2021 12:31 PM EST I saw and evaluated the patient with the resident/fellow. I discussed the case with the resident/fellow and agree with the findings and plan as documented. * Hospital Course - Tereza Velazquez MD - 05/02/2021 5:06 PM EST HPI Rosibel Gayle is a 35 y.o. female with history of recurrent acute pancreatitis likely 2/2 alcohol use (last drank heavily 7 years ago) fibromyalgia, polysubstance use disorder, and bipolar disorder who presented with two days of uncontrolled nausea vomiting, and LUQ stabbing abdominal pain that radiates to her back. She has had multiple ER visits in the past week due to this uncontrolled pain.Of note, she has been frequently presenting to the hospital for similar pain and requesting increasing amount of opioids. On presentation she complained of feeling nauseated and has been vomiting for the last 2 days. She was unable keep any food or drink down. She denied fever, chills, melena, hematochezia, hematemesis.Of note, she has struggled with pancreatitis flares for about 3 years. She has stopped smoking and drinking alcohol but it has not helped with her pain. In 11/2020, she had an ERCP and sphincterotomyto evaluate for Sphincter of Oddi dysfunction. In the ED, the patient has stable vital signs and unremarkable labs including lipase. CT scan on 04/24 without concerning acute findings. Hospital Course Patient was admitted for intractable nausea/vomiting and LUQ stabbing abdominal pain that radiates to her back that is most consistent with flare of chronic pancreatitis. No evidence of acute pancreatitis on imaging and lipase was normal. Additionally, found to likely have component of pain due to known erosive gastropathy with healing erosions as noted on prior admissions. Patient also with significant opiate use outpatient and may have some opioid hyperalgesia contributing as well as functional pain. Treated symptomatically with anti-emetics and multimodal pain control including tylenol, lyrica, and oxycodone. IV pain medications were able to avoided during admission. She was also restarted on POPPI BID. Diet was advanced as tolerate by patient and by time of discharge she was able to toleratePO diet. Discharged with oxycodone 15mg q4h as needed for severe pain. Only provided 2 tablets given has appointment with PCP this afternoon for ongoing chronic pain management. Also provided zofran and phenergan for nausea/vomiting as needed. * Progress Notes - Tereza Velazquez MD - 05/02/2021 2:42 PM EST Subjective No acute events overnight. Tolerating PO fluids well. Continues to report uncontrolled severe epigastric pain and nausea. No episodes of emesis. Wants to try bland foods today with anti-emetic prior to meal. Review of Systems Constitutional: Positive for appetite change. Negative for fever. Gastrointestinal: Positive for abdominal pain and nausea. Negative for blood in stool, constipation, diarrhea and vomiting. All other systems reviewed and are negative. Objective Physical Exam Constitutional: General: She is in acute distress. Appearance: Normal appearance. She is not ill-appearing or toxic-appearing. HENT: Head: Normocephalic and atraumatic. Eyes: Extraocular Movements: Extraocular movements intact. Conjunctiva/sclera: Conjunctivae normal. Cardiovascular: Rate and Rhythm: Normal rate and regular rhythm. Pulmonary: Effort: Pulmonary effort is normal. No respiratory distress. Abdominal: General: Abdomen is flat. Palpations: Abdomen is soft. Tenderness: There is abdominal tenderness. Musculoskeletal: Cervical back: Normal range of motion and neck supple. Right lower leg: No edema. Left lower leg: No edema. Skin: General: Skin is warm and dry. Neurological: Mental Status: She is alert. Mental status is at baseline. Psychiatric: Mood and Affect: Mood normal. Behavior: Behavior normal. Last Recorded Vitals Blood pressure 131/89, pulse 76, temperature 36.9 ??C (98.4 ??F), resp. rate 18, height 1.651 m (5'5 ), weight 94.3 kg (208 lb), SpO2 (!) 87 %, not currently . Assessment/Plan Principal Problem: Intractable nausea and vomiting Rosibel Gayle is a 35 y.o. female with history of recurrent acute pancreatitis likely 2/2 alcohol use (last drank heavily 7 years ago) and bipolar disorder who presents with two days of uncontrolled nausea vomiting, and LUQ stabbing abdominal pain that radiates to her back related to likely flare of chronic pancreatitis. ?? Intractable nausea and vomiting Acute on chronic epigastric pain in setting of known chronic pancreatitis?? - Etiology:??Functional pain??and opioid hypersensitivity are likely etiologies.??She may be experiencing a flare of her known chronic pancreatitis, but she does not meet diagnostic criteria on labs or recent CT imaging for acute pancreatitis. She also has known erosive gastropathy w/ healing erosions. 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 - CT A/P - 04/24/21: No ductal dilatation. No pancreatic calcifications. No pancreatic lesions. No peripancreatic inflammation. - lipase on admission: 88 PLAN - Continue PPI BID ??x 8 weeks per GI??from prior admission (stop 06/13/21) - Anti-emetics PRN - Multimodal pain control with lyrica, tylenol. Increased to PO Oxycodone 15mg Q4H PRN. - Avoid IV pain meds??to help establish outpatient regimen?? - Encourage PO fluid intake. Diet as tolerated per patient. ?? Pancreatic Exocrine insufficiency (POA) - 04/18/21 fecal elastase <10 - Continue pancrelipase? Anxiety/bipolar - Continue??Latuda ?? Fibromyalgia - continue Pregabalin ?? - continue venlafaxine ?? Polysubstance use - History of UDs + THC, Amphetamines, +fentanyl ?? DVT ppx:??Donna 0 - not indicated Code Status:??Full?? Dispo:??HM Good Say 2??Observation, requiring continued admission given inability to tolerate PO intake. Cosigned by Lida Thomas DO at 05/02/2021 3:02 PM EST Associated attestation - Lida Thomas DO - 05/02/2021 3:02 PM EST I saw and evaluated the patient with the resident/fellow. I discussed the case with the resident/fellow and agree with the findings and plan as documented. Patient states she has appointment with PCP tomorrow afternoon and is hopeful that she will be feeling better in order to make it to appointment. She states that her PCP is working on finding a pain clinic that will accept her and not just place her on a pain pump, as she doesn't want that. Patientalso notes that she did well with Zofran prior to meals during last admission and asks if she coulddo that again. She also asks if her oxycodone could be increased to 15 mg PRN as that also worked well for her last time. Will reassess tomorrow and see if symptoms are improved with scheduled Zofranand increased oxycodone. * Progress Notes - Niko Blevins - 05/01/2021 5:23 PM EST Case Management Adult Initial Progress Note Rosibel Gayle 35 y.o. female CSN: [id number] Admission: 04/30/2021 5:19 AM Primary Problem: Intractable nausea and vomiting Paper Sales Representative reviewed chart and spoke with patient to complete this Initial Case Management Assessment. PCP: Elmo Escobar MD Emergency Contact: Extended Emergency Contact Information Primary Emergency Contact: PetarAsiya seals Mobile Relation: Mother Insurance: Primary Visit Coverage Payer Plan Sponsor Code Group Number Group Name ANTHEM MEDICAID ANTHEM MEDICAID [id number] Primary Visit Coverage Subscriber Subscriber ID Subscriber Name Subscriber SSN Subscriber Address [id number] ROSIBEL GAYLE [id number] [address] [place] [address] Patient information: Daily Living Activities: [address] [facility] [address] Income Information: Housing Circumstances-Z Codes: Patient Referred to: Anticipated Discharge Date: TBD Patient's Discharge Goal: Assistance Available at Discharge: Discharge Transport: Pt reported that her significant other or her mother will pick her up at discharge. Follow Up Transport: Home Health / Home Infusion / Outpatient Dialysis Services: None reported. DME: none Living Will/Advance Directive/Power of Tip Banding Machine Operator /Guardian: Pt reports she does not have any of the following. Additional Comments: Pt lives in a home with 6 people and a combined income of $2400 which makes pteligible at 300%FPG. Niko Blevins * Progress Notes - Kirill Jonas MD - 05/01/2021 12:06 PM EST Images from the original note were not included. Subjective No acute events overnight. Continues to report severe abdominal pain. Tolerating minimal amounts ofPO fluids but unable to tolerate any diet at this time. Also experiencing nausea but denies any vomiting. Afebrile. Review of Systems Constitutional: Negative for chills, diaphoresis and fatigue. Respiratory: Negative for cough, choking and shortness of breath. Cardiovascular: Negative for chest pain and leg swelling. Gastrointestinal: Positive for abdominal pain and nausea. Negative for blood in stool, constipation, diarrhea and vomiting. All other systems reviewed and are negative. Objective Physical Exam Constitutional: General: She is in acute distress. Appearance: Normal appearance. She is not ill-appearing or toxic-appearing. HENT: Head: Normocephalic and atraumatic. Cardiovascular: Rate and Rhythm: Normal rate and regular rhythm. Pulmonary: Effort: Pulmonary effort is normal. No respiratory distress. Abdominal: General: Abdomen is flat. Palpations: Abdomen is soft. Tenderness: There is abdominal tenderness. Musculoskeletal: Right [...] Judgment normal. Last Recorded Vitals Blood pressure 127/85, pulse 71, temperature 36.4 ??C (97.5 ??F), resp. rate 16, height 1.651 m (5'5 ), weight 94.3 kg (208 lb), SpO2 98 %, not currently . Assessment/Plan Principal Problem: Intractable nausea and vomiting Rosibel Gayle is a 35 y.o. female with history of recurrent acute pancreatitis likely 2/2 alcohol use (last drank heavily 7 years ago) and bipolar disorder who presents with two days of uncontrolled nausea vomiting, and LUQ stabbing abdominal pain that radiates to her back related to likely flare of chronic pancreatitis. ?? Intractable nausea and vomiting Acute on chronic epigastric pain in setting of known chronic pancreatitis?? - Etiology:??Functional pain??and opioid hypersensitivity are likely etiologies.??She may be experiencing a flare of her known chronic pancreatitis, but she does not meet diagnostic criteria on labs or recent CT imaging for acute pancreatitis. She also has known erosive gastropathy w/ healing erosions. 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 - CT A/P - 04/24/21: No ductal dilatation. No pancreatic calcifications. No pancreatic lesions. No peripancreatic inflammation. - lipase on admission: 88 PLAN - Continue PPI BID ??x 8 weeks per GI??from prior admission (stop 06/13/21) - nausea treatment with phenergan - Multimodal pain control with lyrica, tylenol. PO Oxycodone 10mg increased to Q4H PRN. - Avoid IV pain meds??to help establish outpatient regimen?? - Encourage PO fluid intake. Diet as tolerated per patient. ?? Pancreatic Exocrine insufficiency (POA) - 04/18/21 fecal elastase <10 Plan: - Continue pancrelipase? Anxiety/bipolar - Continue??Latuda ?? Fibromyalgia - continue Pregabalin ?? - continue venlafaxine ?? Polysubstance use - History of UDs + THC, Amphetamines, +fentanyl ?? DVT ppx:??Donna 0 - not indicated Code Status:??Full?? Dispo:??HM Good Say 2??Observation, requiring continued admission given inability to tolerate PO intake. Kirill Jonas MD Internal Medicine, PGY-3 Pager: [phone] Cosigned by Lida Thomas DO at 05/01/2021 12:30 PM EST Associated attestation - Lida Thomas DO - 05/01/2021 12:30 PM EST I saw and evaluated the patient with the resident/fellow. I discussed the case with the resident/fellow and agree with the findings and plan as documented. Still unable to tolerate PO. Says her pain is to the point where she feels like giving up . She follows with [facility] outpatient and says there was discussion about doing a celiac plexus block in the past. She asks if she could have pain medicine every 4 hours as it wears off prior to her next dose. Change PRN oxycodone to q4 today and touch base with GI for any other thoughts on pain control/outpatient management. * Consults - Dominga Arreguin - 05/01/2021 9:48 AM EST Pastoral Care Note Extension Clerk attempted to visit patient. Patient declined at time. Extension Clerk will follow up as needed. Referral From: Extension Clerk initiated Pastoral Care Provided For: Patient Patient Profile: Consult Reasons: Initial visit Unable to Assess: Declined at this time Spiritual Assessment: Interventions: Interventions Provided: Patient declined Pastoral Care Outcomes: * H&P - Mechelle Gomes MD - 04/30/2021 11:54 AM ESTAssociated Order(s): Consult to [facility] Consult to [facility] Consult performed by: Mechelle Gomes MD Consult ordered by: Kayla Ramos MD History Of Present Illness Rosibel Gayle is a 35 y.o. 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 She has had multiple ER visits in the past week due to this uncontrolled pain. ?? She was recently admitted to the hospital from 04/10-04/20 for same issue. During that admission, CT abdomen and lipase was unremarkable. Endoscopy on 04/18 showed erosive gastropathy with healing gastric mucosa. H.pylori was negative. Patient was frustrated during her admission because her physician stopped her IV dilaudid and requested a different physician. Palliative was consulted and recommended to resume home chronic pain regimen on discharge. She was reportedly discharged with 9 pills of 2mg dilaudid. She returned to the ED on 04/23 complaining of uncontrolled pain. She was admitted to the hospital and discharged the next day with prescription for 10 pills of 10mg oxycodone and 12 pillsof 150mg pregabalin. She again returned to our ED on 04/26 and was sent home with [place] Spur prescription. Today, she states she took [place] Spur this morning but it does not help with the pain. She quickly became nauseated and has been vomiting for the last 2 days. She cannot keep any food or drink down. She denies fever, chills, melena, hematochezia, hematemesis. Of note, she has struggled with pancreatitisflares for about 3 years. She has stopped smoking and drinking alcohol but it has not helped with her pain. 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 In the ED, the patient has stable vital signs and unremarkable labs. CT scan on 04/24 without concerning acute findings. ?? On last DAMIAN check, she has had multiple different physicians prescribing her opiates and pregabalin dating back to at least April 2020. The patient had recent urine drug screen on 04/10/2021 that was positive for amphetamine, cannabinoid, fentanyl and oxycodone. Past Medical History Bipolar disorder on venlafaxine, latuda, pregabalin GERD Anxiety Chronic pancreatitis Fibromyalgia Surgical History She has a past surgical [...] drug use. Frequency: 4.00 times per week. Allergies Morphine and related and Tramadol Medications Current Facility-Administered Medications Medication Dose Route Frequency Provider Last Rate Last Admin ??? acetaminophen (Tylenol) tablet 1,000 mg 1,000 mg Oral q6h PRN Mechelle Gomes MD 1,000 mg at04/30/21 1153 ??? lactated Ringer's bolus 1,000 mL 1,000 mL Intravenous Once Mechelle Gomes MD ??? melatonin tablet 3 mg 3 mg Oral Nightly PRN Mechelle Gomes MD ??? oxyCODONE (Roxicodone) immediate release tablet 5 mg 5 mg Oral q6h PRN Mechelle Gomes MD ??? promethazine (Phenergan) tablet 12.5 mg 12.5 mg Oral q4h PRN Mechelle Gomes MD ??? sodium chloride 0.9 % flush 10 mL 10 mL Intravenous q8h PRN Mechelle Gomes MD And ??? sodium chloride 0.9 % flush 10 mL 10 mL Intravenous PRN Mechelle Gomes MD Current Outpatient Medications Medication Sig Dispense Refill ??? acetaminophen (Tylenol) 500 MG tablet Take 1,000 mg by mouth every 6 (six) hours if needed for mild pain. ??? fluconazole (Diflucan) 150 MG tablet Take 1 tablet (150 mg total) by mouth 1 (one) time per week for 21 days. 3 tablet 0 ??? HYDROcodone-acetaminophen ([place]) 5-325 MG tablet Take 2 tablets by mouth every 6 (six) hours if needed for severe pain for up to 3 days. 11 tablet 0 ??? Latuda 40 MG tablet [...] assistance arrives.1 each 2 ??? oxyCODONE (Roxicodone) 10 MG immediate release tablet Take 1 tablet (10 mg total) by mouth every 8 (eight) hours if needed (severe pain). May take 2 tablets (20mg) once for severe, uncontrolled pain, then call primary MD. 10 tablet 0 ??? pancrelipase, Zxf-Ogoc-Tinc, (Creon) 77898-51764 units capsule Take 2 capsules by mouth 3 (three) times a day with meals. ??? pantoprazole (Protonix) 40 MG EC tablet Take 1 tablet (40 mg total) by mouth 2 (two) times a day. Do not crush, chew, or split. 120 tablet 0 ??? sucralfate (Carafate) 1 GM/10ML suspension Take 10 mL (1 g total) by mouth every 6 (six) hours.1200 mL 0 ??? venlafaxine XR (Effoxor-XR) 150 MG 24 hr capsule Take 150 mg by mouth 1 (one) time each day. Review of Systems Constitutional: Negative for chills and fever. HENT: Negative for congestion and sore throat. Respiratory: Negative for cough and shortness of breath. Cardiovascular: Negative for chest pain and leg swelling. Gastrointestinal: Positive for abdominal pain, diarrhea and nausea. Negative for blood in stool andvomiting. Genitourinary: Negative for dysuria. Musculoskeletal: Negative for arthralgias. Skin: Negative for rash. Neurological: Negative for syncope and light-headedness. Psychiatric/Behavioral: Negative for agitation. The patient is nervous/anxious. Physical Exam Vitals reviewed. Constitutional: Appearance: Normal appearance. HENT: Head: Normocephalic and atraumatic. Right Ear: External ear normal. Left Ear: External ear normal. Nose: Nose normal. Mouth/Throat: Mouth: Mucous membranes are moist. Eyes: General: No scleral icterus. Conjunctiva/sclera: Conjunctivae normal. Cardiovascular: Rate and Rhythm: Normal rate and regular rhythm. Pulses: Normal pulses. Heart sounds: Normal heart sounds. Pulmonary: Effort: Pulmonary effort is normal. Breath sounds: Normal breath sounds. Abdominal: General: Bowel sounds are normal. There is no distension. Palpations: Abdomen is soft. Tenderness: There is abdominal tenderness. There is no right CVA tenderness, left CVA tenderness orguarding. Musculoskeletal: Right lower leg: No edema. Left lower leg: No edema. Skin: General: Skin is warm and dry. Coloration: Skin is not jaundiced. Neurological: Mental Status: She is alert. Mental status is at baseline. Psychiatric: Mood and Affect: Mood normal. Behavior: Behavior normal. Last Recorded Vitals Blood pressure 158/90, pulse 98, temperature 36.7 ??C (98 ??F), temperature source Oral, resp. rate18, height 1.651 m (5' 5 ), weight 94.3 kg (208 lb), SpO2 99 %, not currently . Relevant Results Labs in last 18 hours CBC WBC 6.57 Hb 11.5 Plt 197 Hct 35.5 ANC 3.29 INR ??, PTT ??, Anti-Xa ?? BMP Na 140 Cl 105 BUN 7 Glu 94 K 3.7 Co2 22 Cr 0.51 (L) Ca 8.8 (L) iCa ?? Mg ??, Phos ?? Lactate ?? LFT AST 14 AlkPhos 96 T Prot 6.7 ALK 10 Bili <0.2 (L) Alb ?? D.Bili ?? Assessment/Plan Principal Problem: Intractable nausea and vomiting Rosibel Gayle is a 35 y.o. female with history of recurrent acute pancreatitis likely 2/2 alcohol use (last drank heavily 7 years ago) and bipolar disorder who presents with two days of uncontrolled nausea vomiting, and LUQ stabbing abdominal pain that radiates to her back related to likely flare of chronic pancreatitis. Intractable nausea and vomiting Acute on chronic epigastric pain in setting of known chronic pancreatitis - Etiology: Functional pain and opioid hypersensitivity are likely etiologies. She may be experiencing a flare of her known chronic pancreatitis, but she does not meet diagnostic criteria on labs or recent CT imaging for acute pancreatitis. She also has known erosive gastropathy w/ healing erosions. 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 - CT A/P - 04/24/21: No ductal dilatation. No pancreatic calcifications. No pancreatic lesions. No peripancreatic inflammation. - lipase on admission: 88 PLAN - Continue PPI BID ??x 8 weeks per GI from prior admission (stop 06/13/21) - nausea treatment with phenergan - Multimodal pain control with lyrica, tylenol, opoids. - Avoid IV pain meds to help establish outpatient regimen - IL IVF - Diet as tolerated per patient. ?? Pancreatic Exocrine insufficiency (POA) - 04/18/21 fecal elastase <10 Plan: - Continue pancrelipase ?? Anxiety/bipolar - Continue Latuda ?? Fibromyalgia - continue Pregabalin ?? - continue venlafaxine ?? Polysubstance use - History of UDs + THC, Amphetamines, +fentanyl ?? DVT ppx: Donna 0 - not indicated Code Status:??Full Dispo: [facility] Good Say 2??Observation Mechelle Gomes MD Internal Medicine, PGY-2 Cosigned by Lida Thomas DO at 04/30/2021 1:09 PM EST Associated attestation - Liad Thomas DO - 04/30/2021 1:09 PM EST I saw and evaluated the patient with the resident/fellow. I discussed the case with the resident/fellow and agree with the findings and plan as documented. # Acute on chronic epigastric/LUQ pain - Suspect a flare of chronic pancreatitis (lipase can be normal in chronic pancreatitis). Patient also with significant opiate use outpatient and may have some opioid hyperalgesia contributing as well as function pain (history of bipolar, fibromyalgia). - Treat with IVF, anti-emetics, and pain control. * ED Notes - Bre Webster - 04/30/2021 6:59 AM EST Report given to Gela Webster 04/30/21 0659 * ED Provider Notes - Michelle Perez MD - 04/30/2021 5:11 AM EST HPI Chief Complaint Patient presents with ??? Pancreatitis Rosibel Gayle is a 35 y.o. female with history of chronic pancreatitis, fibromyalgia, GERD, HTN who presents with Pancreatitis. Pt states she has chronic pancreatitis and is having worsening LUQ abdominal pain that radiates to her left back, nausea, vomiting, and diarrhea since Thursday. Pt statesshe was seen here in the ED on Thursday where she had a normal lipase. Pt states she then went to [place] yesterday where they refused to do labs as she had a workup done the other day. Pt presentedto another OSH yesterday after leaving [facility] where her lipase was 303. Pt states she has been unable to get into her PCP to discuss pain management for the last week but has an appointment scheduled for Thursday. Pt does not endorse the use of medications for relief. Pt denies fever, chills, SOA, chest pain, urinary symptoms. 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 Physical Exam ED Triage Vitals [04/30/21 0517] Temp Heart Rate Resp BP 36.6 ??C (97.8 ??F) 101 20 (!) 151/98 SpO2 Temp src Heart Rate Source Patient Position 100 % -- Monitor Sitting BP Location FiO2 (%) Right arm -- Physical Exam Vitals and nursing note reviewed. Constitutional: General: She is awake. She is not in acute distress. Appearance: Normal appearance. She is well-developed. HENT: Head: Normocephalic and atraumatic. Nose: Nose normal. No rhinorrhea. Mouth/Throat: Mouth: [...] guarding or rebound. Musculoskeletal: General: No deformity. Normal range of motion. Cervical back: Normal range of motion. Skin: General: Skin is warm and dry. Coloration: Skin is not jaundiced or pale. Neurological: General: No focal deficit present. Mental Status: She is alert. Psychiatric: Behavior: Behavior is cooperative. ED Course & MDM Clinical Impressions as of 04/30/21 2353 Abdominal pain, unspecified abdominal location ED Disposition: [facility] Rosibel Gayle is a 35 yrs old female presents today for abdominal pain, nausea, vomiting with a history of chronic pancreatitis who has been seen at several hospitals for the same complaints recently. VS were reviewed and were remarkable for HTN. Physical exam was remarkable for LUQ abdominal tenderness. DDx includes but is not limited to: pancreatitis, dehydration, electrolyte abnormality, renal stone. While in the ED the patient was given: sodium chloride 0.9 % bolus 1,000 mL,ondansetron (Zofran) injection 4 mg, fentaNYL (Sublimaze) injection 50 mcg. Labs were ordered. The patient's care was signed out to the oncoming attending with workup and dispo pending. Dispo: pending Date/Time: 04/30/2021/5:32 AM Entered by Emeka Carrillo, acting as scribe for Dr. Michelle Perez MD. Attending Attestation: The documentation was recorded by Emeka Carrillo, acting as scribe in my presence at the time of the encounter and accurately reflects the service I personally performed. Michelle Perez MD 04/30/21 8704 * ED Triage Notes - Abigail Dial - 04/30/2021 5:11 AM EST Pt states that she has pancreatitis and she has been unable to get into her PCP until Thursday. She endorses N/V/D and extreme pain. * Progress Notes - Kayla Ramos MD - 04/30/2021 5:11 AM EST I received sign-out and accepted care of this patient from the departing Prudence Perez at 0700. Please see the primary providers??? note for complete elements of the history, physical exam, and ED course. Illness Severity: Stable Patient Summary: Rosibel Gayle is a 35 y.o. female with a PMHx of Past Medical History: Diagnosis Date ??? Anxiety ??? Arthritis ??? Depression ??? Fibromyalgia ??? GERD (gastroesophageal reflux disease) ??? Hypertension ??? Nicotine dependence ??? Obesity ??? Pancreatitis presented to the ED abdominal pain. Most recent vital signs: Visit Vitals BP (!) 151/98 (BP Location: Right arm, Patient Position: Sitting) Pulse 101 Temp 36.6 ??C (97.8 ??F) Resp 20 Ht 1.651 m (5' 5 ) Wt 94.3 kg (208 lb) SpO2 100% BMI 34.61 kg/m?? OB Status Having periods Smoking Status Current Every Day Smoker BSA 2.08 m?? Lab and imaging results: reviewed. Lipase 88. Action plan (To Do): Pt reports still feeling nauseous and having pain. States dilaudid is the onlypain medicine that helps. Given 0.25 mg dilaudid IV and 12.5 phenergan IV. Redosed pain medicine multiple times as pt reports persistent pain. Medicine contacted for admission. Disposition: admit Clinical Impressions as of 04/30/21 0714 Abdominal pain, unspecified abdominal location documented in this encounter Plan of Treatment Not on file documented as of this encounter Procedures Procedure Name Priority Date/Time Associated Diagnosis Comments SARS COV2 COVID 19/INFLUENZA A, B STAT 04/30/2021 8:35 AM EST LACTATE, VENOUS STAT 04/30/2021 6:20 AM EST CBC WITH AUTO DIFFERENTIAL STAT 04/30/2021 6:20 AM EST TEST QUALITATIVE PLASMA STAT 04/30/2021 6:20 AM EST LIPASE, PLASMA STAT 04/30/2021 6:20 AM EST COMPREHENSIVE METABOLIC PANEL, PLASMA STAT 04/30/2021 6:20 AM EST documented in this encounter Results * SARS-CoV-2 COVID-19/Influenza A,B (04/30/2021 8:35 AM EST) SARS CoV-2/COVID-1 9 RNA PCR Result Not Detected Not Detected 04/30/2021 9:02 AM EST [facility] Influenza A Virus PCR Result Not Detected Not Detected 04/30/2021 9:02 AM EST [facility] Influenza B Virus PCR Result Not Detected Not Detected 04/30/2021 9:02 AM EST [facility] Swab Nasopharyngeal structure / Unknown Non-blood Collection / Unknown 04/30/2021 8:35 AM EST 04/30/2021 8:37 AM EST Kayla Ramos MD LAB MICROBIOLOGY - GENERAL ORDER STACIA Final Result Performing Organization Address [facility] Phone Number [facility] [address] [place] [address] * hCG qualitative (04/30/2021 6:20 AM EST) Test Negative Negative 04/30/2021 6:59 AM EST [facility] Blood Venous blood specimen / Unknown Venipuncture / Unknown 04/30/2021 6:20 AM EST 04/30/2021 6:26 AM EST Michelle Perez MD LAB BLOOD ORDERABLES Final Result Performing Organization Address [facility] Phone Number [facility] [address] [place] [address] * Lactic acid, venous (04/30/2021 6:20 AM EST) Pathologist [facility] Lactate, Venous, Whole Blood 1.0 0.5 - 2.2 mmol/L LAB HEMATOLOGY METHOD 04/30/2021 6:27 AM EST [facility] Blood Venous blood specimen / Unknown Venipuncture / Unknown 04/30/2021 6:20 AM EST 04/30/2021 6:26 AM EST us Michelle Perez MD LAB BLOOD ORDERABLES Final Result Performing Organization Address [facility] Phone Number [facility] [address] [place] [address] * (ABNORMAL) Lipase (04/30/2021 6:20 AM EST) Lipase, Plasma 88(H) 19 - 63 U/L 04/30/2021 7:07 AM EST [facility] Blood Venous blood specimen / Unknown Venipuncture / Unknown 04/30/2021 6:20 AM EST 04/30/2021 6:26 AM EST us Michelle Perez MD LAB BLOOD ORDERABLES Final Result Performing Organization Address City/[facility] Phone Number [facility] [address] [place] [address] * (ABNORMAL) CMP (04/30/2021 6:20 AM EST) Glucose, Plasma 94 74 - 99 mg/dL 04/30/2021 7:07 AM [facility] BUN, Plasma 7 7 - 21 mg/dL 04/30/2021 7:07 AM EST [facility] Creatinine, Plasma 0.51(L) 0.60 - 1.10 mg/dL 04/30/2021 7:07 AM [facility] BUN/Creatinine Ratio 14 04/30/2021 7:07 AM [facility] Sodium, Plasma 140 136 - 145 mmol/L 04/30/2021 7:07 AM [facility] Potassium, Plasma 3.7 3.7 - 4.8 mmol/L 04/30/2021 7:07 AM [facility] Comment:Reference range for Serum potassium is 0.2 to 0.5 mmol/L higher than Plasma range. Chloride, Plasma 105 97 - 107 mmol/L 04/30/2021 7:07 AM [facility] CO2, Plasma 22 22 - 29 mmol/L 04/30/2021 7:07 AM [facility] Anion Gap 13 6 - 16 mmol/L 04/30/2021 7:07 AM [facility] Total Calcium, Plasma 8.8(L) 8.9 - 10.2 mg/dL 04/30/2021 7:07 AM [facility] Total Protein 6.7 6.3 - 7.9 g/dL 04/30/2021 7:07 AM [facility] Albumin, Plasma 3.9 3.5 - 5.2 g/dL 04/30/2021 7:07 AM [facility] AST, Plasma 14 11 - 32 U/L 04/30/2021 7:07 AM [facility] ALT, Plasma 10 8 - 33 U/L 04/30/2021 7:07 AM [facility] Alkaline Phosphatase, Plasma 96 35 - 104 U/L 04/30/2021 7:07 AM [facility] Total Bilirubin, Plasma <0.2(L) 0.2 - 1.1 mg/dL 04/30/2021 7:07 AM [facility] eGFR >60 >60 mL/min/1.7 3m*2 04/30/2021 7:07 AM EST [facility] Comment:eGFR = estimated GFR ; eGFR units = mL/min/1.73 sq meters Chronic Kidney Disease is considered if eGFR <60 mL/min/1.73 sq meters Kidney failure is considered if eGFR is <15 mL/min/1.73 sq meters. eGFR assumes steady state plasma creatinine concentration; not applicable if renal function is rapidly changing or patient is on dialysis. eGFR, if AFR/AM >60 >60 mL/min/1.7 3m*2 04/30/2021 7:07 AM EST [facility] Comment:eGFR = estimated GFR ; eGFR units = mL/min/1.73 sq meters Chronic Kidney Disease is considered if eGFR <60 mL/min/1.73 sq meters Kidney failure is considered if eGFR is <15 mL/min/1.73 sq meters. eGFR assumes steady state plasma creatinine concentration; not applicable if renal function is rapidly changing or patient is on dialysis. Blood Venous blood specimen / Unknown Venipuncture / Unknown 04/30/2021 6:20 AM EST 04/30/2021 6:26 AM EST us Michelle Perez MD LAB BLOOD ORDERABLES Final Result Performing Organization Address City/State/[facility] Co de Phone Number [facility] [address] [place] [address] * (ABNORMAL) CBC w/diff (04/30/2021 6:20 AM EST) WBC Count 6.57 3.70 - 10.30 10*3/uL LAB HEMATOLOGY METHOD 04/30/2021 6:31 AM EST [facility] RBC Count 4.20 3.90 - 5.20 10*6/uL LAB HEMATOLOGY METHOD 04/30/2021 6:31 AM EST [facility] HGB 11.5 11.2 - 15.7 g/dL LAB HEMATOLOGY METHOD 04/30/2021 6:31 AM EST [facility] HCT 35.5 34.0 - 45.0 % LAB HEMATOLOGY METHOD 04/30/2021 6:31 AM EST [facility] Platelet Count 197 155 - 369 10*3/uL LAB HEMATOLOGY METHOD 04/30/2021 6:31 AM EST [facility] MCV 85 79 - 98 fL LAB HEMATOLOGY METHOD 04/30/2021 6:31 AM EST [facility] MCH 27.4 26.0 - 32.0 pg LAB HEMATOLOGY METHOD 04/30/2021 6:31 AM EST [facility] MCHC 32.4 30.7 - 35.5 g/dL LAB HEMATOLOGY METHOD 04/30/2021 6:31 AM EST [facility] RDW 15.2(H) 11.5 - 14.5 % LAB HEMATOLOGY METHOD 04/30/2021 6:31 AM EST [facility] MPV 10.3 8.8 - 12.5 fL LAB HEMATOLOGY METHOD 04/30/2021 6:31 AM EST [facility] nRBC 0.0 <=0.0 per 100 WBCs LAB HEMATOLOGY METHOD 04/30/2021 6:31 AM EST [facility] Differential Type Automated LAB HEMATOLOGY METHOD 04/30/2021 6:31 AM EST [facility] Neutrophils % 50.0 % LAB HEMATOLOGY METHOD 04/30/2021 6:31 AM EST [facility] Lymphocytes % 42.0 % LAB HEMATOLOGY METHOD 04/30/2021 6:31 AM EST [facility] Monocytes % 6.0 % LAB HEMATOLOGY METHOD 04/30/2021 6:31 AM EST [facility] Eosinophils % 0.0 % LAB HEMATOLOGY METHOD 04/30/2021 6:31 AM EST [facility] Basophils % 1.0 % LAB HEMATOLOGY METHOD 04/30/2021 6:31 AM EST [facility] Immature Granulocytes % 1.0 % LAB HEMATOLOGY METHOD 04/30/2021 6:31 AM EST [facility] Neutrophils Absolute 3.29 1.60 - 6.10 10*3/uL LAB HEMATOLOGY METHOD 04/30/2021 6:31 AM EST [facility] Lymphocytes Absolute 2.78 1.20 - 3.90 10*3/uL LAB HEMATOLOGY METHOD 04/30/2021 6:31 AM EST [facility] Monocytes Absolute 0.39 0.30 - 0.90 10*3/uL LAB HEMATOLOGY METHOD 04/30/2021 6:31 AM EST [facility] Eosinophils Absolute 0.01 0.00 - 0.50 10*3/uL LAB HEMATOLOGY METHOD 04/30/2021 6:31 AM EST [facility] Basophils Absolute 0.06 0.00 - 0.10 10*3/uL LAB HEMATOLOGY METHOD 04/30/2021 6:31 AM EST [facility] Immature Granulocytes Absolute 0.04 0.00 - 0.06 10*3/uL LAB HEMATOLOGY METHOD 04/30/2021 6:31 AM EST [facility] Blood Venous blood specimen / Unknown Venipuncture / Unknown 04/30/2021 6:20 AM EST 04/30/2021 6:26 AM EST us Michelle Perez MD LAB BLOOD ORDERABLES Final Result [facility] [address] [place] [id number] documented in this encounter Visit Diagnoses Diagnosis Intractable nausea and vomiting- Primary Abdominal pain, unspecified abdominal location documented in this encounter Admitting Diagnoses Diagnosis Intractable nausea and vomiting documented in this encounter Administered Medications Inactive Administered Medications - up to 3 most recent administrations Medication Order MAR Action Action Date Dose Rate Site acetaminophen (Tylenol) tablet 1,000 mg 1,000 mg, Oral, Every 6 hours PRN, Starting on Thu04/30/21 at 1140, Until Thu05/02/21 at 1431, Routine, mild pain Given 05/02/2021 11:42 AM EST 1,000 mg Given 05/01/2021 8:42 PM EST 1,000 mg Given 05/01/2021 8:30 AM EST 1,000 mg acetaminophen (Tylenol) tablet 1,000 mg 1,000 mg, Oral, Every 6 hours scheduled, First dose (after last modification) on Thu05/02/21 at 1800, Until Discontinued, Routine Given 05/03/2021 6:37 AM EST 1,000 mg Given 05/02/2021 5:21 PM EST 1,000 mg fentaNYL (Sublimaze) injection 50 mcg 50 mcg, Intravenous, Once, 1 dose, On Thu04/30/21 at 0535, STAT Given 04/30/2021 6:21 AM EST 50 mcg HYDROmorphone (Dilaudid) injection 0.25 mg 0.25 mg, Intravenous, Once, 1 dose, On Thu04/30/21 at 0715, STAT Given 04/30/2021 7:27 AM EST 0.25 mg HYDROmorphone (Dilaudid) injection 0.5 mg 0.5 mg, Intravenous, Once, 1 dose, On Thu04/30/21 at 0830, STAT Given 04/30/2021 8:33 AM EST 0.5 mg HYDROmorphone (Dilaudid) injection 0.5 mg 0.5 mg, Intravenous, Once as needed, 1 dose, Starting on Thu05/02/21 at 2309, Until Thu05/02/21 at 2335, Routine, severe pain Given 05/02/2021 11:35 PM EST 0.5 mg lactated Ringer's bolus 1,000 mL 1,000 mL, Intravenous, Once, 1 dose, On Thu04/30/21 at 1145, Administer over 2 Hours, Routine New Bag 04/30/2021 11:55 AM EST 1,000 m L 500 mL/hr lidocaine (Lidoderm) 5 % patch 1 patch 1 patch, Apply externally, Every 24 hours, First dose on Thu04/30/21 at 1255, Until Discontinued, Administer over 12 Hours, Routine lurasidone (Latuda) tablet 40 mg 40 mg, Oral, Daily with breakfast, First dose on Thu05/01/21 at 0800, Until Discontinued, Routine Given 05/02/2021 8:59 PM EST 40 mg Given 05/01/2021 8:42 PM EST 40 mg melatonin tablet 3 mg 3 mg, Oral, Nightly PRN, Starting on Thu04/30/21 at 1141, Until Thu05/03/21 at 1356, Routine, sleep Given 05/02/2021 8:59 PM EST 3 mg Given 05/01/2021 8:42 PM EST 3 mg Given 04/30/2021 8:40 PM EST 3 mg ondansetron (Zofran) injection 4 mg 4 mg, Intravenous, Once, 1 dose, On Thu04/30/21 at 0535, STAT Given 04/30/2021 6:21 AM EST 4 mg ondansetron ODT (Zofran-ODT) disintegrating tablet 4 mg 4 mg, Oral, 3 times daily before meals, First dose on Thu05/02/21 at 1200, Until Discontinued, Routine Given 05/03/2021 8:37 AM EST 4 mg Given 05/02/2021 5:21 PM EST 4 mg Given 05/02/2021 11:43 AM EST 4 mg ondansetron ODT (Zofran-ODT) disintegrating tablet 8 mg 8 mg, Oral, 3 times daily before meals, First dose (after last modification) on Thu05/03/21 at 1200, Until Discontinued, Routine oxyCODONE (Roxicodone) immediate release tablet 10 mg 10 mg, Oral, Every 6 hours PRN, Starting on Thu04/30/21 at 1313, Until Thu05/01/21 at 1147, Routine, moderate pain Given 05/01/2021 6:46 AM EST 10 mg Given 05/01/2021 1:09 AM EST 10 mg Given 04/30/2021 6:59 PM EST 10 mg oxyCODONE (Roxicodone) immediate release tablet 10 mg 10 mg, Oral, Every 4 hours PRN, Starting on Thu05/01/21 at 1200, Until Thu05/02/21 at 1417, Routine, moderate pain Given 05/02/2021 12:47 PM EST 10 mg Given 05/02/2021 8:51 AM EST 10 mg Given 05/02/2021 4:30 AM EST 10 mg oxyCODONE (Roxicodone) immediate release tablet 15 mg 15 mg, Oral, Every 4 hours PRN, Starting on Thu05/02/21 at 1457, Until Thu05/03/21 at 1356, Routine, moderate pain Given 05/03/2021 10:59 AM EST 15 mg Given 05/03/2021 6:37 AM EST 15 mg Given 05/03/2021 2:59 AM EST 15 mg oxyCODONE (Roxicodone) immediate release tablet 5 mg 5 mg, Oral, Once, 1 dose, On Thu04/30/21 at 0940, STAT Given 04/30/2021 9:44 AM EST 5 mg pancrelipase (Creon) 19650 units capsule 2 capsule, Oral, 3 times daily with meals, First dose on Thu05/01/21 at 1230, Until Discontinued, Routine Given 05/03/2021 8:37 AM EST 2 capsules Given 05/02/2021 5:29 PM EST 2 capsules Given 05/02/2021 12:49 PM EST 2 capsules pancrelipase (Creon) 6000 unit capsule 48,000 units of lipase (rounded from 47,150 units of lipase = 500 units/kg of lipase ? 94.3 kg), Oral, 3 times daily with meals, First dose on Thu04/30/21 at 1250, Until Discontinued, Routine Given 05/01/2021 8:32 AM EST 48,000 units of lipase Given 04/30/2021 7:00 PM EST 48,000 units of lipase pantoprazole (Protonix) EC tablet 40 mg 40 mg, Oral, 2 times daily before meals, First dose on Thu04/30/21 at 1700, Until Discontinued, Routine Given 05/03/2021 8:37 AM EST 40 mg Given 05/02/2021 5:21 PM EST 40 mg Given 05/02/2021 8:51 AM EST 40 mg pregabalin (Lyrica) capsule 300 mg 300 mg, Oral, 2 times daily, First dose on Thu04/30/21 at 1255, Until Discontinued, Routine Given 05/03/2021 8:37 AM EST 300 mg Given 05/02/2021 8:58 PM EST 300 mg Given 05/02/2021 8:50 AM EST 300 mg promethazine (Phenergan) injection 12.5 mg 12.5 mg, Intravenous, Once, 1 dose, On Thu04/30/21 at 0715, Routine Given 04/30/2021 7:27 AM EST 12.5 mg promethazine (Phenergan) tablet 12.5 mg 12.5 mg, Oral, Every 4 hours PRN, Starting on Thu04/30/21 at 1141, Until Thu05/03/21 at 1356, Routine, nausea, vomiting Given 05/03/2021 10:58 AM EST 12.5 mg Given 05/03/2021 2:59 AM EST 12.5 mg Given 05/02/2021 8:59 PM EST 12.5 mg sodium chloride 0.9 % bolus 1,000 mL 1,000 mL, Intravenous, Once, 1 dose, On Thu04/30/21 at 0530, Administer over 15 Minutes, Routine New Bag 04/30/2021 6:21 AM EST 1,000 mL 4000 mL/hr sodium chloride 0.9 % flush 10 mL 10 mL, Intravenous, Every 8 hours PRN, Starting on Thu04/30/21 at 1138, Until Thu05/03/21 at 1356, Routine, line care sodium chloride 0.9 % flush 10 mL 10 mL, Intravenous, As needed, Starting on Thu04/30/21 at 1138, Until Thu05/03/21 at 1356, Routine, line care sucralfate (Carafate) 1 GM/10ML suspension 1 g 1 g, Oral, Every 6 hours scheduled, First dose on Thu05/01/21 at 1130, Until Discontinued, Routine Given 05/03/2021 10:58 AM EST 1 g Given 05/02/2021 5:21 PM EST 1 g Given 05/02/2021 11:42 AM EST 1 g venlafaxine XR (Effexor-XR) 24 hr capsule 150 mg 150 mg, Oral, Daily with breakfast, First dose on Thu05/01/21 at 0800, Until Discontinued, Routine Given 05/03/2021 8:37 AM EST 150 mg Given 05/02/2021 8:50 AM EST 150 mg Given 05/01/2021 8:30 AM EST 150 mg documented in this encounter Active and Recently Administered Medications Times are shown in EST. Scheduled Medication Order 05/01/2021 05/02/2021 05/03/2021 acetaminophen (Tylenol) tablet 1,000 mg 1,000 mg, Oral, Every 6 hours scheduled, First dose (after last modification) on Thu05/02/21 at 1800, Until Discontinued, Routine 1721 (Given - Provider: Lisa Wheat RN)2349 (Not Given - Provider: Myra Moody RN - Reason: Patient/family refused - Comment: pt stated I'm not sure I can keep it down because I'm throwing up ) 0637 (Given - Provider: Myra Moody RN)1200 (Canceled Entry - Provider: Automatic Discharge Provider - Comment: Automatically canceled at discontinue of medication order) lidocaine (Lidoderm) 5 % patch 1 patch 1 patch, Apply externally, Every 24 hours, First dose on Thu04/30/21 at 1255, Until Discontinued, Administer over 12 Hours, Routine 1535 (Not Given - Provider: Lisa Wheat RN - Reason: Contraindicated) 1414 (Not Given - Provider: Lisa Wheat RN - Reason: Patient/family refused) 1255 (Canceled Entry - Provider: Automatic Discharge Provider - Comment: Automatically canceled at discontinue of medication order) lurasidone (Latuda) tablet 40 mg 40 mg, Oral, Daily with breakfast, First dose on Thu05/01/21 at 0800, Until Discontinued, Routine 0901 (Not Given - Provider: Lisa Wheat RN - Reason: Patient/family refused)2041 (Given - Provider: Ynes Moody RN) 2058 (Given - Provider: Myra Moody RN) ondansetron ODT (Zofran-ODT) disintegrating tablet 4 mg (CANCELED) 4 mg, Oral, 3 times daily before meals, First dose on Thu05/02/21 at 1200, Until Discontinued, Routine 1143 (Given - Provider: Lisa Wheat RN)1415 (Not Given - Provider: Lisa Wheat RN - Reason: Contraindicated)172 1 (Given - Provider: Lisa Wheat RN) 0837 (Given - Provider: Lisa Wheat RN) ondansetron ODT (Zofran-ODT) disintegrating tablet 8 mg 8 mg, Oral, 3 times daily before meals, First dose (after last modification) on Thu05/03/21 at 1200, Until Discontinued, Routine 1200 (Canceled Entry - Provider: Automatic Discharge Provider - Comment: Automatically canceled at discontinue of medication order) pancrelipase (Creon) 11123 units capsule 2 capsule, Oral, 3 times daily with meals, First dose on Thu05/01/21 at 1230, Until Discontinued, Routine 1153 (Given - Provider: Lisa Wheat RN)1638 (Given - Provider: Lisa Wheat RN) 0850 (Given - Provider: Lisa Wheat RN)1249 (Given - Provider: Lisa Wheat RN)1729 (Given - Provider: Lisa Wheat RN) 0837 (Given - Provider: Lisa Wheat RN)1230 (Canceled Entry - Provider: Automatic Discharge Provider - Comment: Automatically canceled at discontinue of medication order) pancrelipase (Creon) 6000 unit capsule (CANCELED) 48,000 units of lipase (rounded from 47,150 units of lipase = 500 units/kg of lipase ? 94.3 kg), Oral, 3 times daily with meals, First dose on Thu04/30/21 at 1250, Until Discontinued, Routine 0832 (Given - Provider: Lisa Wheat RN) pantoprazole (Protonix) EC tablet 40 mg 40 mg, Oral, 2 times daily before meals, First dose on Thu04/30/21 at 1700, Until Discontinued, Routine 0831 (Given - Provider: Lisa Wheat RN)1604 (Given - Provider: Lisa Wheat RN) 0851 (Given - Provider: Lisa Wheat RN)1721 (Given - Provider: Lisa Wheat RN) 0837 (Given - Provider: Lisa Wheat RN) pregabalin (Lyrica) capsule 300 mg 300 mg, Oral, 2 times daily, First dose on Thu04/30/21 at 1255, Until Discontinued, Routine 0827 (Given - Provider: Lisa Wheat RN)2042 (Given - Provider: Ynes Moody RN) 0850 (Given - Provider: Lisa Wheat RN)2058 (Given - Provider: Myra Moody RN) 0837 (Given - Provider: Lisa Wheat RN) sucralfate (Carafate) 1 GM/10ML suspension 1 g 1 g, Oral, Every 6 hours scheduled, First dose on Thu05/01/21 at 1130, Until Discontinued, Routine 1153 (Given - Provider: Lisa Wheat RN)1637 (Given - Provider: Lisa Wheat RN)2255 (Given - Provider: Ynes Modoy RN) 0430 (Given - Provider: Ynes Moody RN)1142 (Given - Provider: Lisa Wheat RN)1721 (Given - Provider: Lisa Wheat RN)2354 (Not Given - Provider: Myra Moody RN - Reason: Patient/family refused - Comment: pt stated I'm not sure I can keep it down because I'm throwing up ) 0548 (Not Given - Provider: Myra Moody RN - Reason: Patient/family refused)1058 (Given - Provider: Lisa Wheat RN) venlafaxine XR (Effexor-XR) 24 hr capsule 150 mg 150 mg, Oral, Daily with breakfast, First dose on Thu05/01/21 at 0800, Until Discontinued, Routine 0830 (Given - Provider: Lisa Wheat RN) 0850 (Given - Provider: Lisa Wheat RN) 0837 (Given - Provider: Lisa Wheat RN) PRN Medication Order 05/01/2021 05/02/2021 05/03/2021 acetaminophen (Tylenol) tablet 1,000 mg (CANCELED) 1,000 mg, Oral, Every 6 hours PRN, Starting on Thu04/30/21 at 1140, Until Thu05/02/21 at 1431, Routine, mild pain 0830 (Given - Provider: Lisa Wheat RN)204 (Given - Provider: Ynes Moody RN) 1142 (Given - Provider: Lisa Wheat RN) HYDROmorphone (Dilaudid) injection 0.5 mg (COMPLETED) 0.5 mg, Intravenous, Once as needed, 1 dose, Starting on Thu05/02/21 at 2309, Until Thu05/02/21 at 2335, Routine, severe pain 2335 (Given - Provider: Myra Moody RN) melatonin tablet 3 mg 3 mg, Oral, Nightly PRN, Starting on Thu04/30/21 at 1141, Until Thu05/03/21 at 1356, Routine, sleep 204 (Given - Provider: Ynes Moody RN) 2058 (Given - Provider: Myra Moody RN) oxyCODONE (Roxicodone) immediate release tablet 10 mg (CANCELED) 10 mg, Oral, Every 6 hours PRN, Starting on Thu04/30/21 at 1313, Until Thu05/01/21 at 1147, Routine, moderate pain 0109 (Given - Provider: Linda Moody LPN)0646 (Given - Provider: Linda Moody LPN) oxyCODONE (Roxicodone) immediate release tablet 10 mg (CANCELED) 10 mg, Oral, Every 4 hours PRN, Starting on Thu05/01/21 at 1200, Until Annabel 05/02/21 at 1417, Routine, moderate pain 1153 (Given - Provider: Lisa Wheat RN)1604 (Given - Provider: Lisa Wheat RN)2042 (Given - Provider: Ynes Moody RN) 0015 (Given - Provider: Ynes Moody RN)0430 (Given - Provider: Ynes Moody RN)0851 (Given - Provider: Lisa Wheat RN)1247 (Given - Provider: Lisa Wheat RN) oxyCODONE (Roxicodone) immediate release tablet 15 mg 15 mg, Oral, Every 4 hours PRN, Starting on Annabel 05/02/21 at 1457, Until Thu05/03/21 at 1356, Routine, moderate pain 1526 (Given - Provider: Lisa Wheat RN)205 (Given - Provider: Myra Moody RN) 0259 (Given - Provider: Myra Moody RN)0637 (Given - Provider: Myra Moody RN)1059 (Given - Provider: Lisa Wheat RN) promethazine (Phenergan) tablet 12.5 mg 12.5 mg, Oral, Every 4 hours PRN, Starting on Thu04/30/21 at 1141, Until Thu05/03/21 at 1356, Routine, nausea, vomiting 0827 (Given - Provider: Lisa Wheat RN) 1453 (Given - Provider: Lisa Wheat RN)205 (Given - Provider: Myra Moody RN) 0259 (Given - Provider: Myra Moody RN)1058 (Given - Provider: Lisa Wheat RN) sodium chloride 0.9 % flush 10 mL(Linked Group 1) 10 mL, Intravenous, Every 8 hours PRN, Starting on Thu04/30/21 at 1138, Until Thu05/03/21 at 1356, Routine, line care sodium chloride 0.9 % flush 10 mL(Linked Group 1) 10 mL, Intravenous, As needed, Starting on Thu04/30/21 at 1138, Until Thu05/03/21 at 1356, Routine, line care Linked Groups Order Group 1: Insert peripheral IV (COMPLETED) Once, On Thu04/30/21 at 1139, For 1 occurrence And Saline lock IV (COMPLETED) Once, On Thu04/30/21 at 1139, For 1 occurrence And sodium chloride 0.9 % flush 10 mLJump to med 10 mL, Intravenous, Every 8 hours PRN, Starting on Thu04/30/21 at 1138, Until Thu05/03/21 at 1356, Routine, line care And sodium chloride 0.9 % flush 10 mLJump to med 10 mL, Intravenous, As needed, Starting on Thu04/30/21 at 1138, Until Thu05/03/21 at 1356, Routine, line care documented in this encounter Additional Health Concerns Assessment Noted Time A fall risk assessment has been complete d for the patient 11/21/2020 2:30 PM EDT documented as of this encounter Care Teams Mold Blower Relationship Specialty Start Date End Date Elmo Escobar MD PCP - General 10/18/20 01/05/23 documented as of this encounter
--- OUTSIDE RECORDS SUMMARY | 2024-02-03 15:26 | XMS_ITS | Encounter Summary ---
Author Organization Healthcare Address [address] [id number] Care Team Providers Care Electrogalvanizing Machine Operator Name Role Phone Elmo Escobar MD Primary Care Provider [phone] Encounter Details Date Type Department Care Team (Late st Contact Info) Description 04/22/2021 Telephone [facility] [address] [place] [address] Tiffanie Pearson, RN [facility] Social History Tobacco Use Types Packs/Day Years [...] have Coronavirus / COVID-19? No / Unsure 04/10/2021 12:12 PM EST documented as of this encounter Miscellaneous Notes * Telephone Encounter - Tiffanie Pearson, RN - 04/22/2021 10:29 AM EST Pt scheduled as instructed by provider. Sent notice to scheduling team to notify pt. * Telephone Encounter - Claudio Sy PA - 04/22/2021 9:56 AM EST You can put her in @ 12:40 on 05/01/21 * Telephone Encounter - Tiffanie Pearson RN - 04/22/2021 8:41 AM EST Triage received a referral on the pt for a followup after hospitalization at . Pt last seen by Claudio 11/21. Cancelled 12/13, [facility] 02/26. Claudio , your first available for an estab pt is May. Do you want him worked in somewhere? Just let me know. Thanks. documented in this encounter Plan of Treatment Not on file documented as of this encounter Visit Diagnoses Not on filedocumented in this encounter Additional Health Concerns Assessment Noted Time A fall risk assessment has been complete d for the patient 11/21/2020 2:30 PM EDT documented as of this encounter Care Teams Electrogalvanizing Machine Operator Relationship Specialty Start Date End Date Elmo Escobar MD PCP - General 10/18/20 01/05/23 documented as of this encounter
--- OUTSIDE RECORDS SUMMARY | 2024-02-03 15:26 | XMS_ITS | Encounter Summary ---
Author Organization [facility] Address [address] [place] [address] Care Team Providers Care Area Loss Prevention Manager Name Role Phone Elmo Escobar MD Primary Care Provider [phone] Encounter Details Date Type Department Care Team (Latest Contact Info) Description 04/23/2021 Travel Social History Tobacco Use Types Packs/Day [...] have Coronavirus / COVID-19? No / Unsure 04/23/2021 9:22 AM EST documented as of this encounter Plan of Treatment Not on file documented as of this encounter Visit Diagnoses Not on filedocumented in this encounter Additional Health Concerns Assessment Noted Time A fall risk assessment has been complete d for the patient 11/21/2020 2:30 PM EDT documented as of this encounter Care Teams Area Loss Prevention Manager Relationship Specialty Start Date End Date Elmo Escobar MD PCP - General 10/18/20 01/05/23 documented as of this encounter
--- OUTSIDE RECORDS SUMMARY | 2024-02-03 15:26 | XMS_ITS | Encounter Summary ---
Author Organization Healthcare Address [address] [place] [address] Care Team Providers Care Dialysis Technician Name Role Phone Elmo Escobar MD Primary Care Provider [phone] Reason for Visit * Reason Comments Abdominal Pain * Auth/Cert Specialty Diagnoses / Procedures Referred By Contac t Referred To Contact Diagnoses Chronic pancreatitis, unspecified pancreatitis type (CMS/HCC) Usha Alejandre MD [address] [place] [address] Phone: tel: fax: [facility] [address] [place] [address] Phone: tel: Referral ID Status Reason Start Date Expiration Date Visits Re quested Visits Authorized [id number] 1 1 Encounter Details Date Type Department Care Team (Latest Contact Info) Description 04/23/2021 9:25 AM EST - 04/24/2021 3:04 PM [facility] Hospital Encounter [facility] [address] [place] [address] Kayla Ramos MD [address] [place] [address] Usha Alejandre MD [address] [place] [address] Chronic pancreatitis, unspecified pancreatitis type [...] Sign Reading Time Taken Comments Blood Pressure 111/76 04/24/2021 7:39 AM EST Pulse 73 04/24/2021 7:39 AM EST Temperature 35.9 ??C (96.7 ??F) 04/24/2021 7:39 AM ES T Respiratory Rate 16 04/24/2021 7:39 AM EST Oxygen Saturation 99% 04/24/2021 7:39 AM EST Inhaled Oxygen Concentration - - Weight 94.4 kg (208 lb 1.8 oz) 04/23/2021 9:22 A M EST Height - - Body Mass Index 34.63 04/10/2021 12:12 PM EST documented in this encounter Discharge Instructions * Discharge Instructions* Joann Robertson - 04/24/2021 2:33 PM EST Images from the original note were not included. Patient Education Pancreatitis The pancreas is an organ in the??abdomen that secretes digestive juices into the stomach. Pancreatitis is an inflammation of the pancreas. In many cases, it's caused when the duct that connects the pancreas and gallbladder is blocked by a gallstone.??Heavy alcohol use is another major cause.??Less common causes can include medicines, trauma, certain medical procedures, viruses, and toxins. Sometimes the cause of pancreatitis can't be found.??Genetic testing is sometimes done in those cases, especially if there is a family history of pancreas disease. Symptoms of pancreatitis include: ?? Severe abdominal pain? Nausea and vomiting ?? Severe indigestion ?? Racing heart ?? Fever If the pancreatitis becomes chronic, diarrhea, chronic pain, weight loss, and poor nutrition can result. At first, pancreatitis may be treated in the hospital.??It may be diagnosed by history, exam, bloodtests, and sometimes imaging studies.??There, fluids and medicines can be provided. The underlying cause of the problem must also be treated to prevent further problems. If gallstones are the cause, you and your healthcare provider can discuss options for treating them.??This usually results in gallbladder surgery. Sometimes another test must be done to clear the drainage ducts of a blocked gallstones.?If alcohol is the cause, talk with your healthcare provider about a program to help you stop drinking. Home care ?? Don't drink alcohol. ?? Rest in bed or sit up in a chair until you feel better. ?? Take medicines as prescribed. If you were given??an antibiotic for infection,??take it until it's gone, even if you feel better. Let your healthcare provider know if you vomit up your medicine. Tips for eating and drinking: ?? If instructed, don't eat or drink until nausea and vomiting go away. ?? Try sipping clear liquids to prevent dehydration.? When you begin eating again, start with small amounts. Have small, more frequent meals rather than larger meals.??Low fat meals are best. Follow-up care Follow up with your healthcare provider as advised. When to seek medical advice Call your healthcare provider right away for any of the following: ?? Continued or worsening pain ?? Repeated vomiting ?? Dizziness, weakness ?? Fever of 100.4?? F (38?? C) or higher, or as directed by your healthcare provider ?? Severe muscle cramps Call 911 Call 911 if you have any of the following: ?? Vomiting blood or large amounts of blood in stool ?? Seizure ?? Loss of consciousness [employer] last reviewed this educational content on 09/23/2018 ?? [id number] [employer]. All rights reserved. This information is not intended as a substitute for professional medical care. Always follow your healthcare professional's instructions. Patient Education Discharge Instructions for Chronic Pancreatitis?? You have been diagnosed with long-term (chronic) pancreatitis. This is caused by repeated cases of inflammation of your pancreas. It results in permanent scarring of the pancreatic tissue. The pancreas is an organ that makes chemicals and hormones that help you digest food and use sugar for energy.Some causes of chronic pancreatitis are the continued use of alcohol and tobacco, genetic disorders, and??structural problems in the pancreas.??Here's what you can do at home to help with your condition. Home care Suggestions for home care include the following:? Ask someone to drive you to appointments until you know how the illness has affected you. ?? Tell your healthcare provider about any medicines you take. ?? Take your medicines exactly as directed. Don???t skip doses. ?? Ask your healthcare provider about fwxp-vhx-fgihopf pain medicines, if needed. ?? Learn to monitor your blood sugar. Keep a record of your readings. Work with your healthcare provider to control blood sugar levels. ?? Learn to take your own pulse. Keep a record of your results. Ask your healthcare provider which readings mean that you need medical attention. ?? Watch for symptoms that your pancreatitis is getting worse. These symptoms include abdominal pain, nausea and vomiting, diarrhea or oil in your stool, weight loss,??and fever. Diet changes Suggestions for dietary changes include the following: ?? Eat a??low-fat diet. Ask your healthcare provider for menus and other diet information. ?? Take vitamins A, D, and E, and add calcium to your diet. ?? Your healthcare provider may recommend digestive enzymes to take with each meal and snack. ?? Stop drinking, especially??if your illness was caused by alcohol. ? Ask your healthcare provider about alcohol abuse programs and support groups such as Alcoholics Anonymous. ? Ask your healthcare provider about prescription medicines that can help you stop drinking. Follow-up care Make a follow-up appointment, or as advised. Be honest in follow-up appointments about any alcohol and tobacco use. Your providers need complete health information so they can prescribe appropriate treatments When to call your healthcare provider Call your healthcare provider right away if you have any of the following: ?? Fever above 100.4??F (38??C), or as directed by your healthcare provider ?? Severe pain in your upper abdomen to your back ?? Nausea and vomiting ?? Abdominal swelling and tenderness ?? Loss of weight without dieting [employer] last reviewed this educational content on 07/24/2018 ?? [id number] [employer]. All rights reserved. This information is not intended as a substitute for professional medical care. Always follow your healthcare professional's instructions. Patient Education Understanding Pancreatitis If your pancreas suddenly becomes irritated or inflamed, you have acute pancreatitis. Acute pancreatitis is often very painful. Emergency medical treatment is usually needed. Chronic pancreatitis is a condition where your pancreas remains inflamed. It can lead to pain and other complications.?? Symptoms of acute pancreatitis Symptoms include: ?? Severe pain in your upper belly radiating??to your back ?? Nausea and vomiting ?? Belly swelling and tenderness ?? Fever ?? Rapid pulse ?? Shallow, fast breathing Treating acute pancreatitis If you have acute pancreatitis, you may be in the hospital for a few days. For part of this time, you likely won???t be allowed to eat or drink. This lets your pancreas rest and heal. If your pancreatitis is severe, you may get nutrition and fluids through a feeding tube inserted into your belly. Medicines are given to help ease any pain. Causes of pancreatitis Gallstones are one of the most common causes of pancreatitis. These hard stones form in the gallbladder, an organ located near the pancreas. These 2 organs share a passage into the small intestine called the common bile duct. But fluid can't leave the pancreas if gallstones block this duct. The fluid backs up and causes pancreatitis. Alcohol is also a very common cause of pancreatitis. Certain medicines, injury, and infection can also cause pancreatitis. Problems with the structure of the pancreas may also be a cause. There are also genetic problems that can cause pancreatitis.?? If you have chronic pancreatitis If the pancreas stays inflamed for a long time, chronic pancreatitis may result. Common symptoms include diarrhea, weight loss, and belly pain. Possible complications of chronic pancreatitis include: ?? Diabetes ?? Not absorbing enough nutrients (malnutrition) ?? Pancreatic cancer (rare) ?? Chronic diarrhea ?? Chronic pain Treatment for chronic pancreatitis includes: ?? Medicines to help the pancreas work (enzymes) and to manage pain ?? Dietary changes ?? Stop smoking ?? Treatment for gallstones ?? Don't drink alcohol. The most important thing you can do is to avoid alcohol and smoking to helpmanage this disease.?? [employer] last reviewed this educational content on 10/24/2020 ?? [phone] [employer], [employer]. All rights reserved. This information is not intended as a substitute for professional medical care. Always follow your healthcare professional's instructions. * Attachments The following attachments cannot be sent through Care Everywhere. * Pancreatitis, Chronic, Discharge Instructions for ([place]) * Pancreatitis ([place]) * Diet, Low Fat ([place]) documented in this encounter Medications at Time of Discharge acetaminophen (Tylenol) 500 MG tablet Take 1,000 mg by mouth every 6 (six) hours if needed for mild pain. 3 fluconazole (Diflucan) 150 MG tablet Take 1 tablet (150 mg total) by mouth 1 (one) time per week for 21 days. 3 tablet 04/23/2021 2 Latuda 40 MG tablet Take 40 [...] primary MD. 10 tablet 04/24/2021 2 pancrelipase, Fvr-Tfkc-Qdyz, (Creon) [id number] units capsule Take 2 capsules by mouth [...] as of this encounter Miscellaneous Notes * Hospital Course - Jeff Patterson MD - 04/24/2021 2:45 PM EST Lila Mcnally is a 35 y.o. female with chronic pancreatitis presumed to be secondary to prior heavy alcohol use (last drank heavily 7 years ago), ERCP, GERD, HTN, CCY and obesity who presents with epigastric and LUQ abdominal pain, nausea, and decreased PO intake. # Acute on chronic epigastric pain thought to be chronic pancreatitis #Opioid Dependence Etiology: Thought to be from acute on chronic mild pancreatitis, erosive gastropathy w/ healing erosions but remains unclear at this point. Imaging/EGD has been unable to discover a pathology to explain same. Functional pain vs opioid hypersensitivity are the top of the differential. -04/16/21 CT Abd/Pelvis w/ contrast Pancreas protocol and revealed no evidence of acute pancreatitisor sequelae of chronic pancreatitis -04/24/21 CT Abd/Pelvis w/ contrast Pancreas protocol- revealed no evidence of acute pancreatitis or sequelae of chronic pancreatitis. -GI performed Endoscopy on 04/18 which showed erosive gastropathy with multiple healing lesions. Biopsies were negative for H. Pylori and showed healing gastric mucosa. PLAN -sucralfate 1g q6 hours -PPI BID x 8 weeks per GI (stop 06/13/21) -Recommend Mechanical soft, GI, Low Fat, low fiber during flairs - Multimodal pain control: - Venlafaxine 150mg daily - Lyrcia (pregabalin) 300mg BID - Acetaminophen 1000mg q 6hrs - Oxycodone 10mg q 8 hrs as needed for severe pain. Recommend attempting 10mg q8hrs before taking full dose. Will send out 3 day supply. - Will need to discuss with PCP about appropriate pain regimen and planning for flairs - Will refer to Pain Management - may need able to as a hospital provider #Pancreatic Exocrine insufficiency - fecal elastase <10 Plan: - Continue creon #Hx Constipation -Bowel reg given opioid usage. #Tinea corporis of right lower extremity -present for >1 years w/ failure of outpatient therapy -Continue Ketoconazole cream BID -Continue oral fluconazole 150mg once weekly x 4 weeks # Anxiety/bipolar - Continue latuda # Fibromyalgia - continue Lyrica/Pregabalin - continue Venlafaxine # Polysubstance use - 04/10/21- UDS + THC, Amphetamines, +fentanyl -THC - patient has history of marijuana use -Fentanyl - given in the ER -Patient denies amphetamine use, unclear if cross reactivity * Discharge Summary - Jeff Patterson MD - 04/24/2021 2:23 PM EST Hospitalization Admit Date/Time: 04/23/2021 9:25 AM Admitting Attending: Usha Alejandre Discharge Date: 04/24/2021 Discharge Attending Physician: Usha Alejandre Md PCP name and Address: Elmo Escobar MD [facility] / [place] [id number] Referring provider name and address: No referring provider defined for this encounter. Chief Concern, Brief History of Present Illness, and Hospital Course Lila Mcnally is a 35 y.o. female with chronic pancreatitis presumed to be secondary to prior heavy alcohol use (last drank heavily 7 years ago), ERCP, GERD, HTN, CCY and obesity who presents with epigastric and LUQ abdominal pain, nausea, and decreased PO intake. # Acute on chronic epigastric pain thought to be chronic pancreatitis #Opioid Dependence Etiology: Thought to be from acute on chronic mild pancreatitis, erosive gastropathy w/ healing erosions but remains unclear at this point. Imaging/EGD has been unable to discover a pathology to explain same. Functional pain vs opioid hypersensitivity are the top of the differential. -04/16/21 CT Abd/Pelvis w/ contrast Pancreas protocol and revealed no evidence of acute pancreatitisor sequelae of chronic pancreatitis -04/24/21 CT Abd/Pelvis w/ contrast Pancreas protocol- revealed no evidence of acute pancreatitis or sequelae of chronic pancreatitis. -GI performed Endoscopy on 04/18 which showed erosive gastropathy with multiple healing lesions. Biopsies were negative for H. Pylori and showed healing gastric mucosa. PLAN -sucralfate 1g q6 hours -PPI BID x 8 weeks per GI (stop 06/13/21) -Recommend Mechanical soft, GI, Low Fat, low fiber during flairs - Multimodal pain control: - Venlafaxine 150mg daily - Lyrcia (pregabalin) 300mg BID - Acetaminophen 1000mg q 6hrs - Oxycodone 10mg q 8 hrs as needed for severe pain. Recommend attempting 10mg q8hrs before taking full dose. Will send out 3 day supply. - Will need to discuss with PCP about appropriate pain regimen and planning for flairs - Will refer to [facility] - may need able to as a hospital provider #Pancreatic Exocrine insufficiency - fecal elastase <10 Plan: - Continue creon #Hx Constipation -Bowel reg given opioid usage. #Tinea corporis of right lower extremity -present for >1 years w/ failure of outpatient therapy -Continue Ketoconazole cream BID -Continue oral fluconazole 150mg once weekly x 4 weeks # Anxiety/bipolar - Continue latuda # Fibromyalgia - continue Lyrica/Pregabalin - continue Venlafaxine # Polysubstance use - 04/10/21- UDS + THC, Amphetamines, +fentanyl -THC - patient has history of marijuana use -Fentanyl - given in the ER -Patient denies amphetamine use, unclear if cross reactivity Surgeries and Procedures Medication List .. acetaminophen [...] alternating nostrils, until medical assistance arrives. oxyCODONE 20 MG immediate release tablet Commonly known as: Roxicodone Take 1 tablet (20 mg total) by mouth every 8 (eight) hours if needed for moderate pain (pain from chronic pancreatitis) for up to 3 days. Can also take 0.5 tablet (10mg) by mouth every 8 hours as needed for pain from chronic pancreatitis pancrelipase (Ikc-Exer-Cioo) [id number] units capsule Commonly known as: Creon Take 2 capsules by mouth 3 (three) times a day with meals. pantoprazole 40 MG EC tablet Commonly known as: Protonix Take 1 tablet (40 mg total) by mouth 2 (two) times a day. Do not crush, chew, or split. sucralfate 1 GM/10ML suspension Commonly known as: Carafate Take 10 mL (1 g total) by mouth every 6 (six) hours. venlafaxine XR 150 MG 24 hr capsule Commonly known as: Effoxor-XR Take 150 mg by mouth 1 (one) time each day. . pregabalin 300 MG capsule Commonly known as: Lyrica Take 300 mg by mouth 2 (two) times a day. Ask about: Which instructions should I use? Where to Get Your Medications These medications were sent to [facility] - [address] [address] ?? oxyCODONE 20 MG immediate release tablet Discharge Diagnosis Medical Problems Active and Resolved Hospital Problems Hospital * (Principal) Chronic pancreatitis (CMS/HCC) Post Discharge Instructions Discuss pain regimen Outpatient Follow-Up Future Appointments Date Time Provider Department Center 05/01/2021 12:40 PM DANIA Gunn [facility] Test Results Pending At Discharge Pending Labs Order Current Status Pain Management, Quantitative Urine In process Pain Management, Quantitative Urine In process Pertinent Physical Exam At Time of Discharge Physical Exam GEN: Awake, alert. Well-developed, well-nourished. SKIN: warm, dry without lesions, rashes. HEENT: NCAT, PERRLA, EOMI, anicteric sclerae. MMM, no oropharyngeal erythema or exudate. Neck supple, trachea midline. RESP: Non-labored, symmetric chest rise, CTAB without crackles/wheezes/rhonchi. On room air. CVS: RRR. Normal S1/S2. No MRG. Pulses 2+ radial and DP. No peripheral edema. No JVD appreciated. GI: Non-distended, soft. Patient with rebound and guarding with light palpation. MSK: No joint deformities, swelling, erythema or warmth. AROM in all extremities. NEURO: AAOx3, Moves all extremities spontaneously. No FNDs PSYCH: Distressed mood, tearful affect Discharge Disposition/Condition Disposition: Home Condition: Stable (s/sx potential problems absent or manageable) I spent < 30 minutes of patient care and instruction time in preparation for this discharge. Cosigned by Usha Alejandre MD at 04/24/2021 3:00 PM EST Associated attestation - Usha Alejandre MD - 04/24/2021 3:00 PM EST I saw and evaluated the patient with the resident/fellow. I discussed the case with the resident/fellow and agree with the findings and plan as documented. Patient's pain being adequately controlled overnight. Repeat imaging did not acute pancreatitis. Patient voiced about going home today. Given the nature of readmission and possible inadequate pain control prior her next appointment w/ PCP, would provided oxycodone 10mg Q8hr PRN x 10 tablets (may use 2 tablets for breakthrough pain flare) for3 days, and defer to PCP to refill/referral to pain clinic if able. * ED Notes - Eliseo Mir - 04/23/2021 11:19 PM EST New piv placed by US guided placement to right arm Eliseo Mir 04/23/21 [id number] * ED Notes - Eliseo Mir - 04/23/2021 11:03 PM EST Att to call report, floor RN in w/ another pt will call back Eliseo Mir 04/23/21 [id number] * H&P - Jeff Patterson MD - 04/23/2021 2:13 PM EST HISTORY & PHYSICAL EXAM 04/23/21 CHIEF COMPLAINT: Chief Complaint Patient presents with ??? Abdominal Pain HISTORY OF PRESENTING ILLNESS Lila Mcnally is a 35 y.o. female with chronic pancreatitis presumed to be secondary to prior heavy alcohol use (last drank heavily 7 years ago), ERCP, GERD, HTN, CCY and obesity who presents with epigastric and LUQ abdominal pain, nausea, and decreased PO intake. She has stabbing LUQ and epigastric pain that she rates as 10/10 and that radiates on to her back accompanied with nausea with an onset of last night. Patient denies fevers and chills. No chest pain, dyspnea, dysuria. Patient reports that pain has been constant. No emesis. ?? Patient was found to have lipase of 73 and medicine was called for admission given continued nasuea, abdominal pain, and inability to tolerate PO after 1L fluid boluses and pain meds and antiemetics were administered. Patient reports chronic pancreatitis with frequent exacerbation that require admission to the hospital. Was recently admitted from 04/10-04/20 acute on chronic epigastric pain thought to be chronic pancreatitis. Had a CT Abd/Pelvis w/ contrast Pancreas protocol and revealed no evidence of acute pancreatitis or sequelae of chronic pancreatitis. GI performed Endoscopy on 04/18 which showed erosive gastropathy with multiple healing lesions. Biopsies were negative for H. Pylori and showed healing gastric mucosa. Patient was frustrated during her admission giving her physician stopped her IV dilaudidand was transferred to another team for care. Patient was discharged with 9 pills of 2mg dilaudid. DAMIAN shows Julio ([facility]) 9 pills of 2mg dilaudid on 04/20/21. Elmo Escobar (cynthania) prescribed 30 10mg oxy on 04/04/21. Before that received Kena Sanders ([facility]) prescribed 18 15mg tablets on 03/31/21. Multiple prescriptions of oxy and pregabalin from Elmo Escobar. Patient states multiple times that she is not a drug addict and that she is not here for dilaudid. She reports that everyone keeps assuming that she is here for dilaudid and that she is faking her pain. Upon finish of interview she begs for one more dose of IV pain medicine before she leaves the ED. ROS: 14 point ROS is negative except as mentioned above PAST MEDICAL HISTORY: She has a past medical history of Anxiety, Arthritis, Depression, Fibromyalgia, GERD (gastroesophageal reflux disease), Hypertension, Nicotine dependence, Obesity, and Pancreatitis. She has no past medical history of Adverse effect of anesthesia, Asthma, Awareness under anesthesia, Cancer (CMS/HCC), CHF (congestive heart failure) (CMS/HCC), COPD (chronic obstructive pulmonary disease) (CMS/HCC), Coronary artery disease, Delayed emergence from general anesthesia, Diabetes mellitus (CMS/HCC), Disease of thyroid gland, Hard to intubate, History of transfusion, Malignant hyperthermia, PONV (postoperative nausea and vomiting), Pseudocholinesterase deficiency, Spinal headache, or Stroke (CMS/HCC). SURGICAL HISTORY: She has a past surgical history that includes Cholecystectomy; ERCP; Esophagogastroduodenoscopy; and Hand surgery. FAMILY HISTORY: Family History Problem Relation Name Age of Onset ??? Hypertension Mother ??? No Known Problems Father SOCIAL HISTORY: She reports that she has been smoking cigarettes. She has a 7.50 pack-year smoking history. She hasnever used smokeless tobacco. She reports previous alcohol use. She reports previous drug use. Frequency: 4.00 times per week. ??? Tobacco use: 1/2 pack daily ??? Alcohol use: denies; heavy previous use ??? Recreational drug use: denies; Hx of THC. Amphetamines on UDS previously ??? Living situation: [place] with mom ALLERGIES: Morphine and related and Tramadol HOME MEDICATIONS: Patient's Medications New Prescriptions No medications on file Previous Medications ACETAMINOPHEN (TYLENOL) 500 MG TABLET Take 1,000 mg by mouth every 6 (six) hours if needed for mildpain. ASCORBIC ACID (VITAMIN C) 250 MG TABLET Take 1 tablet (250 mg total) by mouth 1 (one) time each day. CHOLECALCIFEROL (VITAMIN D3 PO) Take 1 tablet by mouth 1 (one) time each day. CYANOCOBALAMIN (VITAMIN B-12 PO) Take 1 tablet by mouth 1 (one) time each day. FLUCONAZOLE (DIFLUCAN) 150 MG TABLET Take 1 tablet (150 mg total) by mouth 1 (one) time per week for 21 days. HYDROMORPHONE (DILAUDID) 2 MG TABLET Take 1 tablet (2 mg total) by mouth every 8 (eight) hours if needed for severe pain for up to 9 doses. LATUDA 40 MG TABLET Take 40 mg by mouth 1 (one) time each day with breakfast. LIDOCAINE (LIDODERM) 5 % PATCH Apply 1 patch topically if needed (shoulder). MELATONIN 10 MG TABLET Take 10 tablets by mouth at night if needed (sleep). METOCLOPRAMIDE (REGLAN) 5 MG TABLET Take 1 tablet (5 mg total) by mouth every 8 (eight) hours if needed (Nausea/vomiting). NALOXONE (NARCAN) 4 MG/0.1 ML NASAL SPRAY Administer 1 spray (4 mg total) into affected nostril(s) if needed for opioid reversal or respiratory depression. Call 911. Give 4 mg (1 spray) into one nostril. Repeat every 2-3 minutes as needed, alternating nostrils, until medical assistance arrives. OXYCODONE (ROXICODONE) 10 MG IMMEDIATE RELEASE TABLET Take 10 mg by mouth 2 (two) times a day if needed for severe pain. PANCRELIPASE, [id number], (CREON) [id number] UNITS CAPSULE Take 2 capsules by mouth 3 (three) times a day with meals. PANTOPRAZOLE (PROTONIX) 40 MG EC TABLET Take 1 tablet (40 mg total) by mouth 2 (two) times a day. Do not crush, chew, or split. PREGABALIN (LYRICA) 300 MG CAPSULE Take 300 mg by mouth 2 (two) times a day. SUCRALFATE (CARAFATE) 1 GM/10ML SUSPENSION Take 10 mL (1 g total) by mouth every 6 (six) hours. VENLAFAXINE XR (EFFOXOR-XR) 150 MG 24 HR CAPSULE Take 150 mg by mouth 1 (one) time each day. Modified Medications No medications on file Discontinued Medications No medications on file INPATIENT MEDICATIONS: Current Facility-Administered Medications Medication Dose Route Frequency Provider Last Rate Last Admin ??? acetaminophen (Tylenol) tablet 1,000 mg 1,000 mg Oral q6h INO Jeff Patterson MD ??? bisacodyl (Dulcolax) suppository 10 mg 10 mg Rectal q24h PRN Jeff Patterson MD ??? HYDROmorphone (Dilaudid) injection 1 mg 1 mg Intravenous Once Jeff Patterson MD ??? lactated Ringer's bolus 1,000 mL 1,000 mL Intravenous Once Jeff Patterson MD ??? lactated Ringer's infusion 100 mL/hr Intravenous Continuous Jeff Patterson MD ??? ondansetron (Zofran) injection 4 mg 4 mg Intravenous q6h PRN Jeff Patterson MD ??? oxyCODONE (Roxicodone) immediate release tablet 15 mg 15 mg Oral q4h PRN Jeff Patterson MD ??? polyethylene glycol (Miralax) packet 17 g 17 g Oral BID Jeff Patterson MD ??? prochlorperazine (Compazine) injection 5 mg 5 mg Intravenous q6h PRN Jeff Patterson MD ??? senna (Senokot) tablet 17.2 mg 17.2 mg Oral BID Jeff Patterson MD ??? sodium chloride 0.9 % flush 10 mL 10 mL Intravenous q8h PRN Jeff Patterson MD Current Outpatient Medications Medication Sig Dispense Refill ??? acetaminophen (Tylenol) 500 MG tablet Take 1,000 mg by mouth every 6 (six) hours if needed for mild pain. ??? ascorbic acid (Vitamin C) 250 MG tablet Take 1 tablet (250 mg total) by mouth 1 (one) time eachday. 30 tablet 11 ??? Cholecalciferol (VITAMIN D3 PO) Take 1 tablet by mouth 1 (one) time each day. ??? Cyanocobalamin (VITAMIN B-12 PO) Take 1 tablet by mouth 1 (one) time each day. ??? fluconazole (Diflucan) 150 MG tablet Take 1 tablet (150 mg total) by mouth 1 (one) time per week for 21 days. 3 tablet 0 ??? HYDROmorphone (Dilaudid) 2 MG tablet Take 1 tablet (2 mg total) by mouth every 8 (eight) hours if needed for severe pain for up to 9 doses. 9 tablet 0 ??? Latuda 40 MG tablet Take 40 mg by mouth 1 (one) time each day with breakfast. ??? lidocaine (Lidoderm) 5 % patch Apply 1 patch topically if needed (shoulder). ??? Melatonin 10 MG tablet Take 10 tablets by mouth at night if needed (sleep). ??? metoclopramide (Reglan) 5 MG tablet Take 1 tablet (5 mg total) by mouth every 8 (eight) hours if needed (Nausea/vomiting). 10 tablet 0 ??? naloxone (Narcan) 4 mg/0.1 mL nasal spray Administer 1 spray (4 mg total) into affected nostril(s) if needed for opioid reversal or respiratory depression. Call 911. Give 4 mg (1 spray) into one nostril. Repeat every 2-3 minutes as needed, alternating nostrils, until medical assistance arrives.1 each 2 ??? oxyCODONE (Roxicodone) 10 MG immediate release tablet Take 10 mg by mouth 2 (two) times a day if needed for severe pain. ??? pancrelipase, [id number], (Creon) [id number] units capsule Take 2 capsules by mouth 3 (three) times a day with meals. ??? pantoprazole (Protonix) 40 MG EC tablet Take 1 tablet (40 mg total) by mouth 2 (two) times a day. Do not crush, chew, or split. 120 tablet 0 ??? pregabalin (Lyrica) 300 MG capsule Take 300 mg by mouth 2 (two) times a day. ??? sucralfate (Carafate) 1 GM/10ML suspension Take 10 mL (1 g total) by mouth every 6 (six) hours.1200 mL 0 ??? venlafaxine XR (Effoxor-XR) 150 MG 24 hr capsule Take 150 mg by mouth 1 (one) time each day. OBJECTIVE DATA VITALS: Blood pressure (!) 138/95, pulse 107, temperature 36.6 ??C (97.9 ??F), temperature source Oral, resp. rate 18, weight 94.4 kg (208 lb 1.8 oz), SpO2 100 %, not currently . No intake or output data in the 24 hours ending 04/23/211436 Net IO Since Admission: No IO data has been entered for this period [04/23/211436] PHYSICAL EXAM: Physical Exam GEN: Awake, alert. Well-developed, well-nourished. Crying with covers over head SKIN: warm, dry without lesions, rashes. HEENT: NCAT, PERRLA, EOMI, anicteric sclerae. MMM, no oropharyngeal erythema or exudate. Neck supple, trachea midline. RESP: Non-labored, symmetric chest rise, CTAB without crackles/wheezes/rhonchi. On room air. CVS: RRR. Normal S1/S2. No MRG. Pulses 2+ radial and DP. No peripheral edema. No JVD appreciated. GI: Non-distended, soft. Patient with rebound and guarding with light palpation. MSK: No joint deformities, swelling, erythema or warmth. AROM in all extremities. NEURO: AAOx3, CN II-XII grossly intact, sensation and strength grossly intact. Moves all extremities spontaneously. No FNDs PSYCH: Distressed mood, tearful affect LABS: Labs in last 18 hours: CBC WBC 7.28 Hb 12.6 Plt 228 Hct 39.5 ANC 4.56 INR ??, PTT ??, Anti-Xa ?? BMP Na 139 Cl 103 BUN 8 Glu 80 K 3.7 Co2 25 Cr 0.62 Ca 9.2 iCa ?? Mg ??, Phos ?? Lactate ?? LFT AST 11 AlkPhos 109 (H) T Prot 7.4 ALK 11 Bili <0.2 (L) Alb ?? D.Bili ?? ASSESSMENT & PLAN Lila Mcnally is a 35 y.o. female with chronic pancreatitis presumed to be secondary to prior heavy alcohol use (last drank heavily 7 years ago), ERCP, GERD, HTN, CCY and obesity who presents with epigastric and LUQ abdominal pain, nausea, and decreased PO intake. # Acute on chronic epigastric pain thought to be chronic pancreatitis Etiology: Thought to be from acute on chronic mild pancreatitis, erosive gastropathy w/ healing erosions but remains unclear at this point. Patient continues to report 10/10 pain. Imaging/EGD has been unable to discover a pathology to explain same. Functional pain vs opioid hypersensitivity are thetop of the differential. -04/16/21 CT Abd/Pelvis w/ contrast Pancreas protocol and revealed no evidence of acute pancreatitisor sequelae of chronic pancreatitis -GI performed Endoscopy on 04/18 which showed erosive gastropathy with multiple healing lesions. Biopsies were negative for H. Pylori and showed healing gastric mucosa. PLAN -sucralfate 1g q6 hours -Start PPI BID ??x 8 weeks per GI (stop 06/13/21) -Multimodal pain control with lyrica, tylenol, opoids. -Avoid IV pain meds to help establish outpatient regimen -Consider switching velnafaxine to duloxetine. Velnafaxine was discontinued on 04/19, would allow a few weeks to start duloxetine as Op to avoid interaction and serotonin syndrome -Treat constipation -Will start clear liquids and advanced diet to Mechanical soft, GI, Low Fat, low fiber #Pancreatic Exocrine insufficiency - fecal elastase <10 Plan: - Start pancrelipase ?? #Hx Constipation -Bowel reg given opioid usage. ?? #Tinea corporis of right lower extremity?? -present for >1 years w/ failure of outpatient therapy -Continue Ketoconazole cream BID -Continue oral fluconazole 150mg once weekly x??4??weeks ?? #??Anxiety/bipolar - Continue latuda ?? # Fibromyalgia - continue Lyrica/Pregabalin ?? - Will discuss SNRI in the AM; previously on venlafaxine ?? #??Polysubstance use -UDs + THC, Amphetamines, +fentanyl -THC - patient has history of marijuana use -Fentanyl - given in the ER -Patient denies amphetamine use, unclear if cross reactivity?? FEN: po, clear liquid DVT ppx: Donna 0 - not indicated Dispo: HM Good Say 1 Code Status: Full Jeff Patterson MD Internal Medicine - PGY2 Epic Chat Preferred Cosigned by Usha Alejandre MD at 04/23/2021 5:51 PM EST Associated attestation - Usha Alejandre MD - 04/23/2021 5:51 PM EST I saw and evaluated the patient with the resident/fellow. I discussed the case with the resident/fellow and agree with the findings and plan as documented. Discussed with patient at bedside regardingestablishing a PO regimen for pain control and further outpatient follow up in pain clinic if able.She received IV dilaudid in ER and now on Oxy 15mg Q4 PRN. Would keep off IV dilaudid for now and give Oxy PO for pain control unless oxy provide inadequate relief. Oxy can be titrate up to 20mg and observe. Rest of care per resident's note. * ED Provider Notes - Kayla Ramos MD - 04/23/2021 9:08 AM EST HPI Chief Complaint Patient presents with ??? Abdominal Pain Lila Mcnally is a 35 y.o. female w/ a hx of chronic pancreatitis, ERCP, GERD, HTN, CCY, and obesity who presents to the ED with her mother complaining of stabbing LUQ and epigastric pain that she rates as 10/10 and that radiates on to her back accompanied with nausea with an onset of last night and with her stating now that she feels generally weak. The patient explains that she has a history of chronic pancreatitis and was recently admitted for a week and a half for an exacerbation of the same with her having been discharged home on 04/20. The patient reports both that she was discharged with oxycodone 15 mg as well as 2 mg Dilaudid but that she has run out of each despite halving the medication. The patient states that she is here now for nausea and pain control and that she is a difficult stick, having required an ultasound-guided IV placement upon her last admission. She initially states that changes in position do not alter her level of pain, but later reports that laying supine seems to worsen her pain compared to lying in a position. The patient denies any fever, chills, s yncopal episodes, dizziness, falls, vomiting, melena, diarrhea, constipation, SOB, CP, ESPINOZA, or any urinary changes. No data recorded Patient History Past [...] Comment: daily use Immunization History Immunization History: Reviewed. Allergies: Allergies Allergen Reactions ??? Morphine And Related Other Hurts stomach ??? Tramadol Dizziness and Rash Review of [...] are negative. Physical Exam ED Triage Vitals [04/23/21 0922] Temp Heart Rate Resp BP 36.6 ??C (97.9 ??F) 107 18 (!) 138/95 SpO2 Temp Source Heart Rate Source Patient [...] Mucous membranes are moist. Pharynx: No pharyngeal swelling or oropharyngeal exudate. Eyes: Extraocular Movements: Extraocular movements intact. Conjunctiva/sclera: Conjunctivae normal. Pupils: Pupils are equal, round, and reactive to light. Cardiovascular: Rate and Rhythm: Regular rhythm. Tachycardia present. Heart sounds: No murmur heard. Pulmonary: Effort: Pulmonary effort is normal. No respiratory distress. Breath sounds: Normal breath sounds. No wheezing, rhonchi or rales. Abdominal: General: Bowel sounds are normal. Palpations: Abdomen is soft. There is no fluid wave. Tenderness: There is abdominal tenderness in the epigastric area and left upper quadrant. There is guarding (Voluntary guarding of her epigastrium and LUQ.). There is no right CVA tenderness, left CVA tenderness or rebound. Musculoskeletal: General: Normal range of [...] Behavior normal. ED Course & MDM ED Disposition: MDM Number of Diagnoses or Management Options Diagnosis management comments: Lila Mcnally is a 35 y.o. female w/ a hx of chronic pancreatitis, ERCP, GERD, HTN, CCY, and obesity who presents to the ED with LUQ abdominal pain radiating to her back c/w prior episodes of pancreatitis. Tachycardic on arrival otherwise VSS. EKG, labs obtained. Given b olus LR, dilaudid, zofran, and phenergan. Lipase 73. Pt with persistent nausea and pain. Medicine contacted for admission. Amount and/or Complexity of Data Reviewed Decide to obtain previous medical records or to obtain history from someone other than the patient:yes ED Prescriptions None This documentation was recorded by Chet Banks acting as a scribe in my presence, MD Ramos, at the time of the encounter and accurately reflects the service I personally performed and the decisions made by me. This note was dictated to me, Chet Banks, acting as a scribe for MD Ramos. Kayla Ramos MD 04/23/21 1610 * ED Triage Notes - Leatha Suazo RN - 04/23/2021 9:08 AM EST Pt states she was admitted and got discharged Thursday and woke up today with a stabbing pain in her LUQ that radiates into her back. Pt states she is nauseous and is weak as well. Pt also states she has chronic pancreatitis and that was the reason for her most recent admission. Pt stats she was sent home on dilaudid, Carafate, Reglan, and one other medication that she cannot remember. documented in this encounter Plan of Treatment Not on file documented as of this encounter Procedures Procedure Name Priority Date/Time Associated Diagnosis Comments CT ABDOMEN PELVIS W IV CONTRAST STAT 04/24/2021 12:02 PM EST CBC W/O DIFFERENTIAL Routine 04/24/2021 1:16 AM EST PHOSPHORUS, PLASMA Routine 04/24/2021 1: 16 AM EST MAGNESIUM, PLASMA Routine 04/24/2021 1:1 6 AM EST COMPREHENSIVE METABOLIC PANEL, PLASMA Routine 04/24/2021 1:16 AM EST SARS COV2 COVID 19/INFLUENZA A, B STAT 04/23/2021 3:10 PM EST PAIN MANAGEMENT, QUANTITATIVE URINE DRUG TESTING STAT 04/23/2021 3:09 PM EST PAIN MANAGEMENT, QUANTITATIVE URINE DRUG TESTING STAT 04/23/2021 3:09 PM EST URINALYSIS WITH REFLEX MICROSCOPIC STAT 04/23/2021 11:01 AM EST LACTATE, VENOUS STAT 04/23/2021 10:54 AM EST CBC WITH AUTO DIFFERENTIAL STAT 04/23/2021 10:54 AM EST TEST QUALITATIVE PLASMA STAT 04/23/2021 10:54 AM EST LIPASE, PLASMA STAT 04/23/2021 10:54 AM EST COMPREHENSIVE METABOLIC PANEL, PLASMA STAT 04/23/2021 10:54 AM EST documented in this encounter Results * CT Abdomen Pelvis w IV Contrast (04/24/2021 12:02 PM EST) Anatomical Region Laterality Modality Abdomen, Pelvis Computed Tomogra phy Impressions 04/24/2021 12:53 PM EST Right breast nodule, stable from 04/16/2016. 5 mm nodule involving the right lower lobe just superior to the diaphragm. This is similar to 10/28/2020 and is slightly more prominent than on 04/16/2016. Consider further evaluation with noncontrast chest CT. Prominent splenic vein, similar to 04/16/2016. Dictated by Francis Cunha on 04/24/2021 12:23 PM Signed by Francis Cunha on 04/24/2021 12:53 PM Narrative 04/24/2021 12:53 PM EST Exam/Procedure: CT ABDOMEN PELVIS W IV CONTRAST ordered by USHA ALEJANDRE, [id number] CLINICAL INDICATION: Abdominal pain, acute, nonlocalized TECHNIQUE: Multiple axial CT images were obtained from diaphragm to symphysis pubis with administration of IV contrast, 100, mL. Reformatted images in the coronal and sagittal planes were generated from the axial data set to facilitate diagnostic accuracy. Total DLP (Dose-Length Product): 2074.61 mGy.cm. Please note: The reported value represents the total of one or more individual components during the CT acquisition on this date and at this time, and as such, the same value may appear in more than one CT report depending on the interpreting/reporting physicians. COMPARISON: April 16, 2021 and earlier ABDOMEN: Lung bases:A circumscribed 12 x 19 mm nodule involves the medial inferior right breast-image 1, series 2. There is a small 5 mm right lower lobe nodule immediately superior to the right hemidiaphragm-image 9, series 2 and image 6, series 139. Liver/biliary tree: No biliary dilatation. Portal vein is patent. No suspicious nodules. Gallbladder is surgically absent. Spleen: Normal spleen size. Splenic vein is prominent in caliber diffusely. Pancreas: No ductal dilatation. No pancreatic calcifications. No pancreatic lesions. No peripancreatic inflammation. Adrenals: Normal adrenal size. Kidneys: No hydronephrosis, masses or stones. Bowel: No dilated loops of large or small bowel. Normal appendix-for example images 59-63, series 2. Lymph nodes: No enlarged mesenteric or retroperitoneal lymph nodes. Mesentery: No free air or free fluid. PELVIS: Bones: Vertebral body heights are maintained. No lytic or blastic lesions. Vessels: Normal aortic caliber. Bladder: Mildly distended. A small gas collection is seen in the subcutaneous fat of the anterior right pelvis-image 196, series 3. There is a mild right adnexal prominence. This measures 2.1 x 2.4 cm-image 72, series 2. Procedure Note Francis Cunha MD - 04/24/2021 Exam/Procedure: CT ABDOMEN PELVIS W IV CONTRAST ordered by USHA AYERS, [id number] CLINICAL INDICATION: Abdominal pain, acute, nonlocalized TECHNIQUE: Multiple axial CT images were obtained from diaphragm to symphysis pubiswith administration of IV contrast, 100, mL. Reformatted images in thecoronal and sagittal planes were generated from the axial data set tofacilitate diagnostic accuracy. Total DLP (Dose-Length Product): 2074.61 mGy.cm. Please note: The reportedvalue represents the total of one or more individual components during theCT acquisition on this date and at this time, and as such, the same valuemay appear in more than one CT report depending on theinterpreting/reporting physicians. COMPARISON: April 16, 2021 and earlier ABDOMEN: Lung bases:A circumscribed 12 x 19 mm nodule involves the medial inferiorright breast-image 1, series 2. There is a small 5 mm right lower lobe nodule immediately superior to theright hemidiaphragm-image 9, series 2 and image 6, series 139. Liver/biliary tree: No biliary dilatation. Portal vein is patent. Nosuspicious nodules. Gallbladder is surgically absent. Spleen: Normal spleen size. Splenic vein is prominent in caliberdiffusely. Pancreas: No ductal dilatation. No pancreatic calcifications. Nopancreatic lesions. No peripancreatic inflammation. Adrenals: Normal adrenal size. Kidneys: No hydronephrosis, masses or stones. Bowel: No dilated loops of large or small bowel. Normal appendix-forexample images 59-63, series 2. Lymph nodes: No enlarged mesenteric or retroperitoneal lymph nodes. Mesentery: No free air or free fluid. PELVIS: Bones: Vertebral body heights are maintained. No lytic or blasticlesions. Vessels: Normal aortic caliber. Bladder: Mildly distended. A small gas collection is seen in the subcutaneous fat of the anteriorright pelvis-image 196, series 3. There is a mild right adnexal prominence. This measures 2.1 x 2.4 cm-image72, series 2. IMPRESSION: Right breast nodule, stable from 04/16/2016. 5 mm nodule involving the right lower lobe just superior to the diaphragm.This is similar to 10/28/2020 and is slightly more prominent than on04/16/2016. Consider further evaluation with noncontrast chest CT. Prominent splenic vein, similar to 04/16/2016. Dictated by Francis Cunha on 04/24/2021 12:23 PM Signed by Francis Cunha on 04/24/2021 12:53 PM Usha Alejandre MD [facility] CT PROCEDURES Final Resu lt * (ABNORMAL) CBC (04/24/2021 1:16 AM EST) WBC Count 5.13 3.70 - 10.30 10*3/uL LAB HEMATOLOGY METHOD 04/24/2021 1:29 AM EST [facility] RBC Count 4.01 3.90 - 5.20 10*6/uL LAB HEMATOLOGY METHOD 04/24/2021 1:29 AM EST [facility] HGB 11.0(L) 11.2 - 15.7 g/dL LAB HEMATOLOGY METHOD 04/24/2021 1:29 AM EST [facility] HCT 34.1 34.0 - 45.0 % LAB HEMATOLOGY METHOD 04/24/2021 1:29 AM EST [facility] Platelet Count 175 155 - 369 10*3/uL LAB HEMATOLOGY METHOD 04/24/2021 1:29 AM EST [facility] MCV 85 79 - 98 fL LAB HEMATOLOGY METHOD 04/24/2021 1:29 AM EST [facility] MCH 27.4 26.0 - 32.0 pg LAB HEMATOLOGY METHOD 04/24/2021 1:29 AM EST [facility] MCHC 32.3 30.7 - 35.5 g/dL LAB HEMATOLOGY METHOD 04/24/2021 1:29 AM EST [facility] RDW 14.9(H) 11.5 - 14.5 % LAB HEMATOLOGY METHOD 04/24/2021 1:29 AM EST [facility] MPV 10.1 8.8 - 12.5 fL LAB HEMATOLOGY METHOD 04/24/2021 1:29 AM EST [facility] nRBC 0.0 <=0.0 per 100 WBCs LAB HEMATOLOGY METHOD 04/24/2021 1:29 AM EST [facility] Blood Venous blood specimen / Unknown Venipuncture / Unknown 04/24/2021 1:16 AM EST 04/24/2021 1:26 AM EST us Usha Alejandre MD LAB BLOOD ORDERABLES Final R esult Performing Organization Address City/[facility]/ZIP Co de Phone Number [facility] [address] [place] [address] * Phosphorus (04/24/2021 1:16 AM EST) Phosphorus, Plasma 3.8 2.5 - 4.5 mg/dL 04/24/2021 1:59 AM EST [facility] Blood Venous blood specimen / Unknown Venipuncture / Unknown 04/24/2021 1:16 AM EST 04/24/2021 1:26 AM EST Usha Alejandre MD LAB BLOOD ORDERABLES Final R esult [facility] [address] [place] [address] * Magnesium (04/24/2021 1:16 AM EST) Magnesium, Plasma 1.9 1.9 - 2.4 mg/dL 04/24/2021 1:59 AM EST [facility] Blood Venous blood specimen / Unknown Venipuncture / Unknown 04/24/2021 1:16 AM EST 04/24/2021 1:26 AM EST Usha Alejandre MD LAB BLOOD ORDERABLES Final R esult [facility] [address] [place] [address] * (ABNORMAL) Comprehensive metabolic panel (04/24/2021 1:16 AM EST) Glucose, Plasma 94 74 - 99 mg/dL 04/24/2021 2:04 AM EST [facility] BUN, Plasma 4(L) 7 - 21 mg/dL 04/24/2021 2:04 AM EST [facility] Creatinine, Plasma 0.54(L) 0.60 - 1.10 mg/dL 04/24/2021 2:04 AM EST [facility] BUN/Creatinine Ratio 7 04/24/2021 2:04 AM EST [facility] Sodium, Plasma 138 136 - 145 mmol/L 04/24/2021 2:04 AM EST [facility] Potassium, Plasma 3.8 3.7 - 4.8 mmol/L 04/24/2021 2:04 AM EST [facility] Comment:Reference range for Serum potassium is 0.2 to 0.5 mmol/L higher than Plasma range. Chloride, Plasma 104 97 - 107 mmol/L 04/24/2021 2:04 AM EST [facility] CO2, Plasma 25 22 - 29 mmol/L 04/24/2021 2:04 AM EST [facility] Anion Gap 9 6 - 16 mmol/L 04/24/2021 2:04 AM EST [facility] Total Calcium, Plasma 8.8(L) 8.9 - 10.2 mg/dL 04/24/2021 2:04 AM EST [facility] Total Protein 5.7(L) 6.3 - 7.9 g/dL 04/24/2021 2:04 AM EST [facility] Albumin, Plasma 3.5 3.5 - 5.2 g/dL 04/24/2021 2:04 AM EST [facility] AST, Plasma 15 11 - 32 U/L 04/24/2021 2:04 AM EST [facility] ALT, Plasma 13 8 - 33 U/L 04/24/2021 2:04 AM EST [facility] Alkaline Phosphatase, Plasma 77 35 - 104 U/L 04/24/2021 2:04 AM EST [facility] Total Bilirubin, Plasma <0.2(L) 0.2 - 1.1 mg/dL 04/24/2021 2:04 AM EST [facility] eGFR >60 >60 mL/min/1.7 3m*2 04/24/2021 2:04 AM EST [facility] Comment:eGFR = estimated GFR ; eGFR units = mL/min/1.73 sq meters Chronic Kidney Disease is considered if eGFR <60 mL/min/1.73 sq meters Kidney failure is considered if eGFR is <15 mL/min/1.73 sq meters. eGFR assumes steady state plasma creatinine concentration; not applicable if renal function is rapidly changing or patient is on dialysis. eGFR, if AFR/AM >60 >60 mL/min/1.7 3m*2 04/24/2021 2:04 AM EST [facility] Comment:eGFR = estimated GFR [...] blood specimen / Unknown Venipuncture / Unknown 04/24/2021 1:16 AM EST 04/24/2021 1:26 AM EST Usha Alejandre MD LAB BLOOD ORDERABLES Final R esult [facility] [address] [place] [address] * SARS-CoV-2 COVID-19/Influenza A,B (04/23/2021 3:10 PM EST) Pathologist [facility] SARS CoV-2/COVID-1 9 RNA PCR Result Not Detected Not Detected 04/23/2021 3:44 PM EST [facility] Influenza A Virus PCR Result Not Detected Not Detected 04/23/2021 3:44 PM EST [facility] Influenza B Virus PCR Result Not Detected Not Detected 04/23/2021 3:44 PM EST [facility] Swab Nasopharyngeal structure / Unknown Non-blood Collection / Unknown 04/23/2021 3:10 PM EST 04/23/2021 3:14 PM EST Usha Alejandre MD LAB MICROBIOLOGY - GENERAL O RDERABLES Final Result [facility] [address] [place] [address] * (ABNORMAL) Pain Management, Quantitative Urine (04/23/2021 3:09 PM EST) Pathologist [facility] [place] Alprazolam <20 <20 ng/mL 04/24 11:14 PM EST [facility] [place] Midazolam <20 <20 ng/mL 2021 11:14 PM EST [facility] [place] Triazolam <20 <20 ng/mL 2021 11:14 PM EST [facility] Alprazolam <10 <10 ng/mL 04/24/2021 11:14 PM EST [facility] Aminoclonazepam >1,000(H) <20 ng/mL 2 11:14 PM EST [facility] Amphetamine <50 <50 ng/mL 04/24/2021 11:14 PM EST [facility] Benzoylecgonine <50 <50 ng/mL 11:14 PM EST [facility] Buprenorphine <10 <10 ng/mL 04/24/2021 11:14 PM EST [facility] Buprenorphine Glucuronide <50 <50 ng/mL 04/24/2021 11:14 PM EST [facility] Butalbital <50 <50 ng/mL 04/24/2021 11:14 PM EST [facility] 9 Carboxy THC <10 <10 ng/mL 04/24/2021 11:14 PM EST [facility] 9 Carboxy THC Glucuronide <50 <50 ng/mL 04/24/2021 11:[address] [facility] Clonazepam 32(H) <10 ng/mL 04/24/2021 11:[address] [facility] Codeine <50 <50 ng/mL 04/24/2021 11:[address] [facility] Codeine Glucuronide <50 <50 ng/mL 04/24 11:[address] [facility] Cyclobenzaprine <50 <50 ng/mL 11:[address] [facility] Desmethyl Tramadol <50 <50 ng/mL 2021 11:[address] [facility] Diazepam <10 <10 ng/mL 04/24/2021 11:[address] [facility] EDDP - Methadone Metabolite <50 <50 ng/mL 04/24/2021 11:[address] [facility] Fentanyl <1 <1 ng/mL 04/24/2021 11:[address] [facility] Hydrocodone <50 <50 ng/mL 04/24/2021 11:[address] [facility] Hydromorphone 65(H) <50 ng/mL 04/24/2021 11:[address] [facility] Hydromorphone Glucuronide >1,000(H) <50 ng/mL 04/24/2021 11:[address] [facility] Lorazepam <20 <20 ng/mL 04/24/2021 11:[address] [facility] Lorazepam Glucuronide <50 <50 ng/mL 04/24/2021 11:[address] [facility] MDA <50 <50 ng/mL 04/24/2021 11:[address] [facility] MDMA <50 <50 ng/mL 04/24/2021 11:14 PM [facility] Meperidine <50 <50 ng/mL 04/24/2021 11:14 PM [facility] Methadone <50 <50 ng/mL 04/24/2021 11:14 PM [facility] Methamphetamine <50 <50 ng/mL 11:14 PM [facility] Methylphenidate <50 <50 ng/mL 11:14 PM [facility] 6 Monoacetyl morphine <10 <10 ng/mL 04/24/2021 11:[address] [facility] Morphine <50 <50 ng/mL 04/24/2021 11:[address] [facility] Morphine Glucuronide <50 <50 ng/mL 03/2021 11:[address] [facility] Naloxone <50 <50 ng/mL 04/24/2021 11:[address] [facility] Naloxone Glucuronide <50 <50 ng/mL 03/2021 11:[address] [facility] Norbuprenorphine <10 <10 ng/mL 04/25/19 11:[address] [facility] Norbuprenorphine Glucuronide <50 <50 ng/mL 04/24/2021 11:[address] [facility] Nordiazepam <20 <20 ng/mL 04/24/2021 11:[address] [facility] Norfentanyl <2 <2 ng/mL 04/24/2021 11:[address] [facility] Normeperidine <50 <50 ng/mL 04/24/2021 11:[address] [facility] PCP Quant, Ur <50 <50 ng/mL 04/24/2021 11:[address] [facility] Phenobarbital <50 <50 ng/mL 04/24/2021 11:[address] [facility] Oxazepam <20 <20 ng/mL 04/24/2021 11:[address] [facility] Oxazepam Glucuronide <50 <50 ng/mL 03/2021 11:[address] [facility] Oxycodone <50 <50 ng/mL 04/24/2021 11:[address] [facility] Oxymorphone <50 <50 ng/mL 04/24/2021 11:[address] [facility] Oxymorphone Glucuronide <50 <50 ng/mL 04/24/2021 11:[address] [facility] Secobarbital <50 <50 ng/mL 04/24/2021 11:[address] [facility] Tramadol <50 <50 ng/mL 04/24/2021 11:[address] [facility] Temazepam <20 <20 ng/mL 04/24/2021 11:[address] [facility] Temazepam Glucuronide <50 <50 ng/mL 04/24/2021 11:[address] [facility] Urine Urine specimen obtained by clean catch procedure / Unknown Non-blood Collection / Unknown 04/23/2021 3:09 PM EST 04/23/2021 3:14 PM EST us Kayla Ramos MD LAB URINE ORDERABLES Final Resul t [facility] [address] [place] [address] * Urinalysis with reflex microscopic (04/23/2021 11:01 AM EST) Color, Urine Yellow LAB URINALYSIS - AUTOMATED METHOD 04/23/2021 11:07 AM EST [facility] Clarity, Urine Cloudy LAB URINALYSIS - AUTOMATED METHOD 04/23/2021 11:[address] [facility] Spec [place], Urine 1.012 <=1.005 to >=1.030 LAB URINALYSIS - AUTOMATED METHOD 04/23/2021 11:[address] [facility] pH, Urine 6.0 4.5 to 8 LAB URINALYSIS - AUTOMATED METHOD 04/23/2021 11:[address] [facility] Protein, Urine Negative Negative mg/dL LAB URINALYSIS - AUTOMATED METHOD 04/23/2021 11:[address] [facility] Glucose, Urine Negative Negative mg/dL LAB URINALYSIS - AUTOMATED METHOD 04/23/2021 11:[address] [facility] Ketones, Urine Negative Negative mg/dL LAB URINALYSIS - AUTOMATED METHOD 04/23/2021 11:[address] [facility] Blood, Urine Negative Negative LAB URINALYSIS - AUTOMATED METHOD 04/23/2021 11:[address] [facility] Bilirubin, Urine Negative Negative LAB URINALYSIS - AUTOMATED METHOD 04/23/2021 11:[address] [facility] Urobilinogen, Urine 0.2 0.2 to 1.0 mg/dL LAB URINALYSIS - AUTOMATED METHOD 04/23/2021 11:[address] [facility] Leukocytes, Urine Negative Negative LAB URINALYSIS - AUTOMATED METHOD 04/23/2021 11:[address] [facility] Nitrite, Urine Negative Negative LAB URINALYSIS - AUTOMATED METHOD 04/23/2021 11:[address] [facility] Urine Urine specimen obtained by clean catch procedure / Unknown Non-blood Collection / Unknown 04/23/2021 11:01 AM EST 04/23/2021 11:04 AM EST us Kayla Ramos MD LAB URINE ORDERABLES Final Resul t Performing Organization Address [facility] de Phone Number [facility] [address] [place] [address] * hCG qualitative (04/23/2021 10:54 AM EST) Test Negative Negative 04/23/2021 11:35 AM EST [facility] Blood Venous blood specimen / Unknown Venipuncture / Unknown 04/23/2021 10:54 AM EST 04/23/2021 10:57 AM EST us Kayla Ramos MD LAB BLOOD ORDERABLES Final Resul t Performing Organization Address [facility] de Phone Number [facility] [address] [place] [address] * (ABNORMAL) Lipase (04/23/2021 10:54 AM EST) Lipase, Plasma 73(H) 19 - 63 U/L 04/23/2021 11:35 AM EST [facility] Blood Venous blood specimen / Unknown Venipuncture / Unknown 04/23/2021 10:54 AM EST 04/23/2021 10:57 AM EST Result Alex Ramos MD LAB BLOOD ORDERABLES Final Resul t Performing Organization Address [facility] de Phone Number [facility] [address] [place] [address] * Lactic acid, venous (04/23/2021 10:54 AM EST) Lactate, Venous, Whole Blood 1.6 0.5 - 2.2 mmol/L LAB HEMATOLOGY METHOD 04/23/2021 10:58 AM EST [facility] Blood Venous blood specimen / Unknown Venipuncture / Unknown 04/23/2021 10:54 AM EST 04/23/2021 10:57 AM EST us Kayla Ramos MD LAB BLOOD ORDERABLES Final Resul t Performing Organization Address [facility] de Phone Number [facility] [address] [place] [address] * (ABNORMAL) CMP (04/23/2021 10:54 AM EST) Glucose, Plasma 80 74 - 99 mg/dL 04/23/2021 11:35 AM EST [facility] BUN, Plasma 8 7 - 21 mg/dL 04/23/2021 11:35 AM EST [facility] Creatinine, Plasma 0.62 0.60 - 1.10 mg/dL 04/23/2021 11:35 AM EST [facility] BUN/Creatinine Ratio 13 04/23/2021 11:35 AM EST [facility] Sodium, Plasma 139 136 - 145 mmol/L 04/23/2021 11:35 AM EST [facility] Potassium, Plasma 3.7 3.7 - 4.8 mmol/L 04/23/2021 11:35 AM EST [facility] Comment:Reference range for Serum potassium is 0.2 to 0.5 mmol/L higher than Plasma range. Chloride, Plasma 103 97 - 107 mmol/L 04/23/2021 11:35 AM EST [facility] CO2, Plasma 25 22 - 29 mmol/L 04/23/2021 11:[address] [facility] Anion Gap 11 6 - 16 mmol/L 04/23/2021 11:35 AM EST [facility] Total Calcium, Plasma 9.2 8.9 - 10.2 mg/dL 04/23/2021 11:35 AM EST [facility] Total Protein 7.4 6.3 - 7.9 g/dL 04/23/2021 11:35 AM EST [facility] Albumin, Plasma 4.2 3.5 - 5.2 g/dL 04/23/2021 11:35 AM EST [facility] AST, Plasma 11 11 - 32 U/L 04/23/2021 11:35 AM EST [facility] ALT, Plasma 11 8 - 33 U/L 04/23/2021 11:35 AM EST [facility] Alkaline Phosphatase, Plasma 109(H) 35 - 104 U/L 04/23/2021 11:35 AM EST [facility] Total Bilirubin, Plasma <0.2(L) 0.2 - 1.1 mg/dL 04/23/2021 11:35 AM EST [facility] eGFR >60 >60 mL/min/1.7 3m*2 04/23/2021 11:35 AM EST [facility] Comment:eGFR = estimated GFR ; eGFR units = mL/min/1.73 sq meters Chronic Kidney Disease is considered if eGFR <60 mL/min/1.73 sq meters Kidney failure is considered if eGFR is <15 mL/min/1.73 sq meters. eGFR assumes steady state plasma creatinine concentration; not applicable if renal function is rapidly changing or patient is on dialysis. eGFR, if AFR/AM >60 >60 mL/min/1.7 3m*2 04/23/2021 11:35 AM EST [facility] Comment:eGFR = estimated GFR ; eGFR units = mL/min/1.73 sq meters Chronic Kidney Disease is considered if eGFR <60 mL/min/1.73 sq meters Kidney failure is considered if eGFR is <15 mL/min/1.73 sq meters. eGFR assumes steady state plasma creatinine concentration; not applicable if renal function is rapidly changing or patient is on dialysis. Blood Venous blood specimen / Unknown Venipuncture / Unknown 04/23/2021 10:54 AM EST 04/23/2021 10:57 AM EST us Kayla Ramos MD LAB BLOOD ORDERABLES Final Resul t [facility] [address] [place] [address] * (ABNORMAL) CBC w/diff (04/23/2021 10:54 AM EST) WBC Count 7.28 3.70 - 10.30 10*3/uL LAB HEMATOLOGY METHOD 04/23/2021 11:06 AM EST [facility] RBC Count 4.65 3.90 - 5.20 10*6/uL LAB HEMATOLOGY METHOD 04/23/2021 11:06 AM EST [facility] HGB 12.6 11.2 - 15.7 g/dL LAB HEMATOLOGY METHOD 04/23/2021 11:06 AM EST [facility] HCT 39.5 34.0 - 45.0 % LAB HEMATOLOGY METHOD 04/23/2021 11:06 AM EST [facility] Platelet Count 228 155 - 369 10*3/uL LAB HEMATOLOGY METHOD 04/23/2021 11:06 AM EST [facility] MCV 85 79 - 98 fL LAB HEMATOLOGY METHOD 04/23/2021 11:06 AM EST [facility] MCH 27.1 26.0 - 32.0 pg LAB HEMATOLOGY METHOD 04/23/2021 11:06 AM EST [facility] MCHC 31.9 30.7 - 35.5 g/dL LAB HEMATOLOGY METHOD 04/23/2021 11:06 AM EST [facility] RDW 15.1(H) 11.5 - 14.5 % LAB HEMATOLOGY METHOD 04/23/2021 11:06 AM EST [facility] MPV 9.8 8.8 - 12.5 fL LAB HEMATOLOGY METHOD 04/23/2021 11:06 AM EST [facility] nRBC 0.0 <=0.0 per 100 WBCs LAB HEMATOLOGY METHOD 04/23/2021 11:06 AM EST [facility] Differential Type Automated LAB HEMATOLOGY METHOD 04/23/2021 11:06 AM EST [facility] Neutrophils % 62.0 % LAB HEMATOLOGY METHOD 04/23/2021 11:06 AM EST [facility] Lymphocytes % 30.0 % LAB HEMATOLOGY METHOD 04/23/2021 11:[address] [facility] Monocytes % 6.0 % LAB HEMATOLOGY METHOD 04/23/2021 11:[address] [facility] Eosinophils % 0.0 % LAB HEMATOLOGY METHOD 04/23/2021 11:06 AM EST [facility] Basophils % 1.0 % LAB HEMATOLOGY METHOD 04/23/2021 11:06 AM EST [facility] Immature Granulocytes % 1.0 % LAB HEMATOLOGY METHOD 04/23/2021 11:06 AM EST [facility] Neutrophils Absolute 4.56 1.60 - 6.10 10*3/uL LAB HEMATOLOGY METHOD 04/23/2021 11:06 AM EST [facility] Lymphocytes Absolute 2.15 1.20 - 3.90 10*3/uL LAB HEMATOLOGY METHOD 04/23/2021 11:06 AM EST [facility] Monocytes Absolute 0.45 0.30 - 0.90 10*3/uL LAB HEMATOLOGY METHOD 04/23/2021 11:06 AM EST [facility] Eosinophils Absolute 0.01 0.00 - 0.50 10*3/uL LAB HEMATOLOGY METHOD 04/23/2021 11:06 AM EST [facility] Basophils Absolute 0.07 0.00 - 0.10 10*3/uL LAB HEMATOLOGY METHOD 04/23/2021 11:06 AM EST [facility] Immature Granulocytes Absolute 0.04 0.00 - 0.06 10*3/uL LAB HEMATOLOGY METHOD 04/23/2021 11:06 AM EST [facility] Blood Venous blood specimen / Unknown Venipuncture / Unknown 04/23/2021 10:54 AM EST 04/23/2021 10:57 AM EST Kayla Ramos MD LAB BLOOD ORDERABLES Final Resul t [facility] [address] [place] [id number] documented in this encounter Visit Diagnoses Diagnosis Chronic pancreatitis, unspecified pancreatitis type (CMS/HCC) documented in this encounter Administered Medications Inactive Administered Medications - up to 3 most recent administrations Medication Order MAR Action Action Date Dose Rate Site acetaminophen (Tylenol) tablet 1,000 mg 1,000 mg, Oral, Every 6 hours scheduled, First dose on Thu04/23/21 at 1425, Until Discontinued, Routine Given 04/24/2021 12:45 PM EST 1,000 mg Given 04/24/2021 6:16 AM EST 1,000 mg Given 04/23/2021 11:14 PM EST 1,000 mg bisacodyl (Dulcolax) suppository 10 mg 10 mg, Rectal, Every 24 hours PRN, Starting on Thu04/23/21 at 1424, Until Thu04/24/21 at 1705, Routine, constipation, For no BM in 72 hrs or per MD request HYDROmorphone (Dilaudid) injection 0.5 mg 0.5 mg, Intravenous, Once, 1 dose, On Thu04/23/21 at 1125, STAT Given 04/23/2021 11:43 AM EST 0.5 mg HYDROmorphone (Dilaudid) injection 0.5 mg 0.5 mg, Intravenous, Once, 1 dose, On Thu04/23/21 at 1225, STAT Given 04/23/2021 1:07 PM EST 0.5 mg HYDROmorphone (Dilaudid) injection 0.5 mg 0.5 mg, Intravenous, Every 4 hours PRN, Starting on Thu04/23/21 at 1922, Until Thu04/24/21 at 0905, Routine, severe pain, give oxy first Given 04/24/2021 7:24 AM EST 0.5 mg Given 04/24/2021 12:58 AM EST 0.5 mg Given 04/23/2021 8:44 PM EST 0.5 mg HYDROmorphone (Dilaudid) injection 1 mg 1 mg, Intravenous, Once, 1 dose, On Thu04/23/21 at 1425, Routine Given 04/23/2021 3:21 PM EST 1 mg iohexol (OMNIPaque) 300 MG/ML injection 100 mL 100 mL, Intravenous, Once in imaging, 1 dose, Starting on Thu04/24/21 at 1016, Until Thu04/24/21 at 1148, Routine, Imaging Protocol Orders Given 04/24/2021 11:48 AM EST 100 mL iohexol (OMNIPaque) 9 MG/ML oral contrast 500 mL 500 mL, Oral, Once in imaging, 1 dose, Starting on Thu04/24/21 at 1016, Until Thu04/24/21 at 1148, Routine, Imaging Protocol Orders Given 04/24/2021 11:48 AM EST 500 mL labetalol (Normodyne,Trandate) injection 10 mg 10 mg, Intravenous, Every 4 hours PRN, Starting on Thu04/23/21 at 1921, Until Thu04/24/21 at 1705, Routine, high blood pressure, for SBP>180 and SBP>110 lactated Ringer's bolus 1,000 mL 1,000 mL, Intravenous, Once, 1 dose, On Thu04/23/21 at 1420, Administer over 2 Hours, STAT New Bag 04/23/2021 3:21 PM EST 1,000 mL 5 00 mL/hr lactated Ringer's infusion 1,000 mL 1,000 mL, Intravenous, Once, 1 dose, On Thu04/23/21 at 1125, STAT New Bag 04/23/2021 11:46 AM EST 1,000 mL lactated Ringer's infusion 200 mL/hr, Intravenous, Continuous, Starting on Thu04/23/21 at 1420, Until Thu04/24/21 at 1705, Routine New Bag 04/24/2021 1:15 AM EST 200 mL/hr 200 mL/ hr New Bag 04/23/2021 8:45 PM EST 200 mL/hr 200 mL/hr New Bag 04/23/2021 3:22 PM EST 200 mL/hr 200 mL/hr lurasidone (Latuda) tablet 40 mg 40 mg, Oral, Daily with breakfast, First dose on Thu04/24/21 at 0800, Until Discontinued, Routine Given 04/24/2021 7:24 AM EST 40 mg ondansetron (Zofran) injection 4 mg 4 mg, Intravenous, Once, 1 dose, On Thu04/23/21 at 1125, STAT Given 04/23/2021 11:44 AM EST 4 mg ondansetron (Zofran) injection 4 mg 4 mg, Intravenous, Every 6 hours PRN, Starting on Thu04/23/21 at 1422, Until Thu04/24/21 at 1705, Routine, nausea, vomiting Given 04/24/2021 1:20 AM EST 4 mg oxyCODONE (Roxicodone) immediate release tablet 15 mg 15 mg, Oral, Every 4 hours PRN, Starting on Thu04/23/21 at 1530, Until Thu04/23/21 at 1921, Routine, moderate pain Given 04/23/2021 6:54 PM EST 15 mg oxyCODONE (Roxicodone) immediate release tablet 20 mg 20 mg, Oral, Every 4 hours PRN, Starting on Thu04/23/21 at 1921, Until Thu04/24/21 at 1705, Routine, moderate pain Given 04/24/2021 12:43 PM EST 20 mg Given 04/24/2021 4:52 AM EST 20 mg Given 04/23/2021 11:14 PM EST 20 mg pancrelipase (Creon) 67991 units capsule 2 capsule, Oral, 3 times daily with meals, First dose on Thu04/23/21 at 1730, Until Discontinued, Routine Given 04/24/2021 1:00 PM EST 2 capsules pantoprazole (Protonix) EC tablet 40 mg 40 mg, Oral, 2 times daily, First dose on Thu04/23/21 at 2300, Until Discontinued, Routine Given 04/24/2021 8:10 AM EST 40 mg Given 04/23/2021 11:15 PM EST 40 mg polyethylene glycol (Miralax) packet 17 g 17 g, Oral, 2 times daily, First dose on Thu04/23/21 at 1425, Until Discontinued, Routine Given 04/24/2021 8:10 AM EST 17 g Given 04/24/2021 12:56 AM EST 17 g Given 04/23/2021 3:32 PM EST 17 g pregabalin (Lyrica) capsule 300 mg 300 mg, Oral, 2 times daily, First dose on Thu04/23/21 at 2300, Until Discontinued, Routine Given 04/24/2021 8:10 AM EST 300 mg Given 04/23/2021 11:14 PM EST 300 mg prochlorperazine (Compazine) injection 5 mg 5 mg, Intravenous, Every 6 hours PRN, Starting on Thu04/23/21 at 1422, Until Thu04/24/21 at 1705, Routine, nausea, vomiting Given 04/24/2021 8:10 AM EST 5 mg promethazine (Phenergan) injection 12.5 mg 12.5 mg, Intravenous, Once, 1 dose, On Thu04/23/21 at 1225, Routine Given 04/23/2021 1:07 PM EST 12.5 mg senna (Senokot) tablet 17.2 mg 17.2 mg, Oral, 2 times daily, First dose on Thu04/23/21 at 1425, Until Discontinued, Routine Given 04/24/2021 8:10 AM EST 17.2 mg Given 04/23/2021 11:15 PM EST 17.2 mg Given 04/23/2021 3:32 PM EST 17.2 mg sodium chloride 0.9 % flush 10 mL 10 mL, Intravenous, Every 8 hours PRN, Starting on Thu04/23/21 at 1416, Until Thu04/24/21 at 1705, Routine, line care sucralfate (Carafate) 1 GM/10ML suspension 1 g 1 g, Oral, Every 6 hours scheduled, First dose on Thu04/23/21 at 1800, Until Discontinued, Routine Given 04/24/2021 12:45 PM EST 1 g Given 04/24/2021 6:17 AM EST 1 g Given 04/24/2021 12:56 AM EST 1 g venlafaxine XR (Effexor-XR) 24 hr capsule 150 mg 150 mg, Oral, Daily with breakfast, First dose on Thu04/24/21 at 0930, Until Discontinued, Routine Given 04/24/2021 9:59 AM EST 150 mg documented in this encounter Active and Recently Administered Medications Times are shown in EST. Scheduled Medication Order 04/22/2021 04/23/2021 04/24/2021 acetaminophen (Tylenol) tablet 1,000 mg 1,000 mg, Oral, Every 6 hours scheduled, First dose on Thu04/23/21 at 1425, Until Discontinued, Routine 1520 (Given - Provider: Hunter Good)1834 (Given - Provider: Hunter Good)2314 (Given - Provider: Eliseo Mir) 0616 (Given - Provider: Shelby Walter RN)1245 (Given - Provider: Farida Herbert LPN) HYDROmorphone (Dilaudid) injection 0.5 mg (COMPLETED) 0.5 mg, Intravenous, Once, 1 dose, On Thu04/23/21 at 1125, STAT 1143 (Given - Provider: Hunter Good) HYDROmorphone (Dilaudid) injection 0.5 mg (COMPLETED) 0.5 mg, Intravenous, Once, 1 dose, On Thu04/23/21 at 1225, STAT 1307 (Given - Provider: Hunter Good) HYDROmorphone (Dilaudid) injection 1 mg (COMPLETED) 1 mg, Intravenous, Once, 1 dose, On Thu04/23/21 at 1425, Routine 1521 (Given - Provider: Hunter Good) iohexol (OMNIPaque) 300 MG/ML injection 100 mL (COMPLETED) 100 mL, Intravenous, Once in imaging, 1 dose, Starting on Thu04/24/21 at 1016, Until Thu04/24/21 at 1148, Routine, Imaging Protocol Orders 1148 (Given - Provid er: Nicholas Cunha) iohexol (OMNIPaque) 9 MG/ML oral contrast 500 mL (COMPLETED) 500 mL, Oral, Once in imaging, 1 dose, Starting on Thu04/24/21 at 1016, Until Thu04/24/21 at 1148, Routine, Imaging Protocol Orders 1148 (Given - Provid er: Nicholas Cunha) lactated Ringer's bolus 1,000 mL (COMPLETED) 1,000 mL, Intravenous, Once, 1 dose, On Thu04/23/21 at 1420, Administer over 2 Hours, STAT 1521 (New Bag - Provider: Hunter Good)1729 (Stopped - Provider: Hunter Good) lactated Ringer's infusion 1,000 mL (COMPLETED) 1,000 mL, Intravenous, Once, 1 dose, On Thu04/23/21 at 1125, STAT 1146 (New Bag - Provider: Hunter Good)1521 (Stopped - Provider: Hunter Good) lurasidone (Latuda) tablet 40 mg 40 mg, Oral, Daily with breakfast, First dose on Thu04/24/21 at 0800, Until Discontinued, Routine 0724 (Given - Provid er: Joann Robertson) ondansetron (Zofran) injection 4 mg (COMPLETED) 4 mg, Intravenous, Once, 1 dose, On Thu04/23/21 at 1125, STAT 1144 (Given - Provider: Hunter Good) pancrelipase (Creon) 43486 units capsule 2 capsule, Oral, 3 times daily with meals, First dose on Thu04/23/21 at 1730, Until Discontinued, Routine 1925 (Not Given - Provider: Marybeth Lopez RN - Reason: Medication not available) 0931 (Not Given - Provider: Joann Robertson - Reason: NPO - Comment: pt not eating)1300 (Given - Provider: Farida Herbert LPN) pantoprazole (Protonix) EC tablet 40 mg 40 mg, Oral, 2 times daily, First dose on Thu04/23/21 at 2300, Until Discontinued, Routine 2315 (Given - Provider: Eliseo Mir) 0810 (Given - Provider: Joann Robertson) polyethylene glycol (Miralax) packet 17 g 17 g, Oral, 2 times daily, First dose on Thu04/23/21 at 1425, Until Discontinued, Routine 1532 (Given - Provider: Hunter Good) 0056 (Given - Provider: Shelby Walter RN)0810 (Given - Provider: Joann Robertson) pregabalin (Lyrica) capsule 300 mg 300 mg, Oral, 2 times daily, First dose on Thu04/23/21 at 2300, Until Discontinued, Routine 2314 (Given - Provider: Eliseo Mir) 0810 (Given - Provider: Joann Robertson) promethazine (Phenergan) injection 12.5 mg (COMPLETED) 12.5 mg, Intravenous, Once, 1 dose, On Thu04/23/21 at 1225, Routine 1307 (Given - Provider: Hunter Good) senna (Senokot) tablet 17.2 mg 17.2 mg, Oral, 2 times daily, First dose on Thu04/23/21 at 1425, Until Discontinued, Routine 1532 (Given - Provider: Hunter Good)2315 (Given - Provider: Eliseo Mir) 0810 (Given - Provider: Joann Robertson) sucralfate (Carafate) 1 GM/10ML suspension 1 g 1 g, Oral, Every 6 hours scheduled, First dose on Thu04/23/21 at 1800, Until Discontinued, Routine 1834 (Given - Provider: Hunter Good - Comment: Ok to give with PO Acetaminophen per Anais Lewis PharmD) 0056 (Given - Provider: Shelby Walter RN)0617 (Given - Provider: Shelby Walter RN)1245 (Given - Provider: Farida Herbert LPN) venlafaxine XR (Effexor-XR) 24 hr capsule 150 mg 150 mg, Oral, Daily with breakfast, First dose on Thu04/24/21 at 0930, Until Discontinued, Routine 0959 (Given - Provid er: Joann Robertson) Continuous Medication Order 04/22/2021 04/23/2021 04/24/2021 lactated Ringer's infusion 200 mL/hr, Intravenous, Continuous, Starting on Thu04/23/21 at 1420, Until Thu04/24/21 at 1705, Routine 1522 (New Bag - Provider: Hunter Good)2045 (New Bag - Provider: Marybeth Lopez RN) 0115 (New Bag - Provider: Shelby Walter RN) PRN Medication Order 04/22/2021 04/23/2021 04/24/2021 bisacodyl (Dulcolax) suppository 10 mg 10 mg, Rectal, Every 24 hours PRN, Starting on Thu04/23/21 at 1424, Until Thu04/24/21 at 1705, Routine, constipation, For no BM in 72 hrs or per MD request HYDROmorphone (Dilaudid) injection 0.5 mg (CANCELED) 0.5 mg, Intravenous, Every 4 hours PRN, Starting on Thu04/23/21 at 1922, Until Thu04/24/21 at 0905, Routine, severe pain, give oxy first 2043 (Given - Provider: Marybeth Lopez RN) 005 (Given - Provider: Shelby Walter RN)0724 (Given - Provider: Joann Robertson) labetalol (Normodyne,Trandate) injection 10 mg 10 mg, Intravenous, Every 4 hours PRN, Starting on Thu04/23/21 at 1921, Until Thu04/24/21 at 1705, Routine, high blood pressure, for SBP>180 and SBP>110 melatonin tablet 9 mg 9 mg, Oral, Nightly PRN, Starting on Thu04/23/21 at 1454, Until Thu04/24/21 at 1705, Routine, sleep ondansetron (Zofran) injection 4 mg 4 mg, Intravenous, Every 6 hours PRN, Starting on Thu04/23/21 at 1422, Until Thu04/24/21 at 1705, Routine, nausea, vomiting 0120 (Given - Provid er: Shelby Walter RN) oxyCODONE (Roxicodone) immediate release tablet 15 mg (CANCELED) 15 mg, Oral, Every 4 hours PRN, Starting on Thu04/23/21 at 1530, Until Thu04/23/21 at 1921, Routine, moderate pain 1854 (Given - Provider: Hunter Good) oxyCODONE (Roxicodone) immediate release tablet 20 mg 20 mg, Oral, Every 4 hours PRN, Starting on Thu04/23/21 at 1921, Until Thu04/24/21 at 1705, Routine, moderate pain 1935 (Given - Provider: Marybeth Lopez RN)2314 (Given - Provider: Eliseo Mir) 0452 (Given - Provider: Shelby Walter RN)1243 (Given - Provider: Farida Herbert LPN) prochlorperazine (Compazine) injection 5 mg 5 mg, Intravenous, Every 6 hours PRN, Starting on Thu04/23/21 at 1422, Until Thu04/24/21 at 1705, Routine, nausea, vomiting 0810 (Given - Provid er: Joann Robertson) sodium chloride 0.9 % flush 10 mL(Linked Group 1) 10 mL, Intravenous, Every 8 hours PRN, Starting on Thu04/23/21 at 1416, Until Thu04/24/21 at 1705, Routine, line care Linked Groups Order Group 1: Insert peripheral IV (COMPLETED) Once, On Thu04/23/21 at 1417, For 1 occurrence And Saline lock IV (COMPLETED) Once, On Thu04/23/21 at 1417, For 1 occurrence And sodium chloride 0.9 % flush 10 mLJump to med 10 mL, Intravenous, Every 8 hours PRN, Starting on Thu04/23/21 at 1416, Until Thu04/24/21 at 1705, Routine, line care documented in this encounter Additional Health Concerns Assessment Noted Time A fall risk assessment has been complete d for the patient 11/21/2020 2:30 PM EDT documented as of this encounter Care Teams Dialysis Technician Relationship Specialty Start Date End Date Elmo Escobar MD PCP - General 10/18/20 01/05/23 documented as of this encounter
--- OUTSIDE RECORDS SUMMARY | 2024-02-03 15:26 | XMS_ITS | Encounter Summary ---
Author Organization Healthcare Address [address] [place] [address] Care Team Providers Care Shuttle Final Inspector Name Role Phone Elmo Escobar MD Primary Care Provider [phone] Reason for Visit * Reason Comments Abdominal Pain Encounter Details Date Type Department Care Team (Late st Contact Info) Description 04/26/2021 12:02 PM EST - 04/26/2021 7:06 PM EST Emergency [facility] S Emergency Department [address] [place] [address] George Martinez MD [address] [place] [address] Chronic pancreatitis, unspecified pancreatitis type (CMS/HCC) (Primary Dx); Other chronic pain Discharge Disposition: Home or Self Care [...] Sign Reading Time Taken Comments Blood Pressure 147/110 04/26/2021 7:05 PM EST Pulse 88 04/26/2021 7:05 PM EST Temperature 36.6 ??C (97.9 ??F) 04/26/2021 7:05 PM ES T Respiratory Rate 18 04/26/2021 7:05 PM EST Oxygen Saturation 98% 04/26/2021 6:25 PM EST Inhaled Oxygen Concentration - - [...] primary MD. 10 tablet 04/24/2021 2 pancrelipase, Yri-Cfpq-Mfme, (Creon) [id number] units capsule Take 2 capsules by mouth [...] as of this encounter Miscellaneous Notes * Consults - Robin Bailey MD - 04/26/2021 6:51 PM EST Reason For Consult Pain/patient requesst Requesting Service: Emergency Medicine History Of Present Illness Lila Mcnally is a 35 y.o. female presenting with complaints of uncontrolled LUQ abdominal pain.She has a history of chronic pancreatitis suspect secondary to previous alcohol as well as bipolar disorder and is taking pregabalin, venlafaxine and latuda . She was recently admitted to the hospital from 04/10- 04/20 for same issue of uncontrolled abdominal pain. During that admission, GI performed endoscopy on 04/18 which showed erosive gastropathy with multiple healing lesions. Biopsies were negative for H. Pylori and showed healing gastric mucosa. Patient was frustrated during her admission because her physician stopped her IV dilaudid and was trying to control her pain with oral medication to ensure her pain would be controlled in the outpatient setting. The patient requested a different physician and was transferred to another team for care. The patient ended up being discharged with 9 pills of 2mg dilaudid. She then returned to the ED on 04/23 complaining of uncontrolled pain. She was admitted to the hospital and discharged the next day with prescription for 10 pills of 10mg oxycodone and 12 pills of 150mg pregabalin. Today the patient has stable vital signs, unremarkable labs and had CT scan of the abdomen/pelvis on 04/24 without concerning acute findings. Checking the patient's DAMIAN, it appears that she has had multiple different physicians prescribing her opiates and pregabalin dating back to at least April 2020. The patient had recent urine drug screen on 04/10/2021 that was positive for amphetamine, cannabinoid, fentanyl and oxycodone, though fentanyl noted to have been given in the ED prior to testing. When I enter the room, the patient is calm and pleasant, but as soon I discuss that she does not meet criteria for admission to the hospital, the patient gets upset and emotional and requests opiates. I explained that as she has an established relationship with a primary care doctor who has been filling these prescriptions for the past year, this is the most appropriate person for her to follow-up with until she can establish care with pain management. Past Medical History She has a past medical history of Anxiety, Arthritis, Depression, Fibromyalgia, GERD (gastroesophageal reflux disease), Hypertension, Nicotine dependence, Obesity, and Pancreatitis. She has no past medical history of Adverse effect of anesthesia, Asthma, Awareness under anesthesia, Cancer ([facility]), CHF (congestive heart failure) ([facility]), COPD (chronic obstructive pulmonary disease) ([facility]), Coronary artery disease, Delayed emergence from general anesthesia, Diabetes mellitus ([facility]), Disease of thyroid gland, Hard to intubate, History of transfusion, Malignant hyperthermia, PONV (postoperative nausea and vomiting), Pseudocholinesterase deficiency, Spinal headache, or Stroke ([facility]). Surgical History She has a past [...] use. Frequency: 4.00 times per week. Allergies Tramadol Medications No current facility-administered medications for this encounter. Current Outpatient Medications Medication Sig Dispense Refill [...] primary MD. 10 tablet 0 ??? pancrelipase, Plk-Nmqv-Axcj, (Creon) [id number] units capsule Take 2 capsules by mouth 3 (three) times a day with meals. ??? pantoprazole (Protonix) 40 MG EC tablet Take 1 tablet (40 mg total) by mouth 2 (two) times a day. Do not crush, chew, or split. 120 tablet 0 ??? pregabalin (Lyrica) 300 MG capsule Take 1 capsule (300 mg total) by mouth 2 (two) times a day for 3 days. 6 capsule 0 ??? sucralfate (Carafate) 1 GM/10ML suspension Take 10 mL (1 g total) by mouth every 6 (six) hours.1200 mL 0 ??? venlafaxine XR (Effoxor-XR) 150 MG 24 hr capsule Take 150 mg by mouth 1 (one) time each day. Review of Systems Review of Systems Gastrointestinal: Positive for abdominal pain. Physical Exam Physical Exam Constitutional: General: She is not [...] tenderness. Musculoskeletal: General: Normal range of motion. Skin: General: Skin is warm and dry. Neurological: General: No focal deficit present. Mental Status: She is alert and oriented to person, place, and time. Last Recorded Vitals Blood pressure (!) 147/110, pulse 88, temperature 36.6 ??C (97.9 ??F), resp. rate 18, SpO2 98 %, not currently . Relevant Results Assessment/Plan Active Problems: Chronic pancreatitis (CMS/HCC) Chronic pain Opiate dependence ([facility]) Patient with chronic pain secondary to chronic pancreatitis with multiple admissions for uncontrolled pain and repeated requests for opiates. She has largely unremarkable vital signs, labs, recent imaging, and physical exam. I discussed with the patient and her mother via speakerphone that the current plan for her to follow-up with her primary doctor, GI, and pain management is a good one and that she currently does not need to be admitted to the hospital. I answered all their questions and they were agreeable to the plan. * ED Provider Notes - Donna Mueller APRN - 04/26/2021 11:50 AM EST HPI Chief Complaint Patient presents with ??? Abdominal Pain 35-year-old female with history of chronic pancreatitis presents with abdominal pain, nausea, and diarrhea for several days. Patient reports she was just discharged from here for pancreatitis and abdominal pain. Patient reports they gave her OxyContin 20 mg which was helping with her pain. States when she was discharged with the 20 mg, the pharmacy said they did not have 20 mg so that only gave her 10 of the 10 mg pills. Patient reports that helped a little but this morning after she took 1 thepain was severe and feels like when she had a flare-up of her pancreatitis. Patient describes as a constant stabbing pain to left upper quadrant and epigastric area that radiates to her back. Lying on her left side makes it feel better. Nothing makes it worse. Patient reports she was to follow-up with pain management but they have not contacted her yet. Patient denies shortness of breath, chest pain, dizziness, dysuria, hematuria, bloody emesis/stool, headache, dizziness, or swelling. No data recorded Patient History Past Medical [...] not reviewed Allergies: Allergies Allergen Reactions ??? Tramadol Dizziness and Rash Review of Systems Review of Systems Constitutional: Negative for chills and fever. HENT: Negative for ear pain and sore throat. Eyes: Negative for pain and visual disturbance. Respiratory: Negative for cough, chest tightness and shortness of breath. Cardiovascular: Negative for chest pain and palpitations. Gastrointestinal: Positive for abdominal pain, diarrhea and nausea. Negative for blood in stool, constipation and vomiting. Genitourinary: Negative for dysuria and hematuria. Musculoskeletal: Negative for arthralgias and back pain. Skin: Negative for color change and rash. Neurological: Negative for seizures and syncope. Psychiatric/Behavioral: Negative. All other systems reviewed and are negative. Physical Exam ED Triage Vitals [04/26/21 1200] Temp Heart Rate Resp BP 36.9 ??C (98.4 ??F) 92 16 (!) 145/92 SpO2 Temp Source Heart Rate Source Patient [...] Bowel sounds are normal. There is no abdominal bruit. Palpations: Abdomen is soft. Tenderness: [...] Course & MDM Clinical Impressions as of 04/26/21 1802 Chronic pancreatitis, unspecified pancreatitis type (CMS/HCC) Other chronic pain ED Disposition: MDM Number of Diagnoses or Management Options Chronic pancreatitis, unspecified pancreatitis type (CMS/HCC) Other chronic pain Diagnosis management comments: Patient presented with worsening abdominal pain and nausea. Patient states it feels like her pancreatitis. Patient was given IV fluids, Phenergan, and Dilaudid. Lab work shows no acute findings. Urine shows no acute findings. Patient had a normal CT scan of the abdomen/pelvis on April 16 and April 24. Based on patient lab work no new imaging needed at this time. When I went in to speak with patient she was lying in bed and appeared to be in no distress. Asked her how her pain was and she said she was doing better. I washed patient walked to the bathroom with strong steady gait. I then began to discuss discharge with patient and she immediately began to cry and say she could go home due to the pain. She kept saying she cannot see her primary care physician for 1 week to get more pain medicine. Patient states she is having anxiety at this time. Patientstates she wants to be admitted for pain control so that she can make it to her doctor's appointment. Patient's family doctor according to DAMIAN is the 1 who's been prescribing her narcotics. Internal Medicine consulted per patient's request for pain control. After evaluation, they determined theywould not be admitting patient either. Patient strongly advised to follow-up with her primary care physician and pain control as soon as possible. Pt states all the doctors are lying to her. Pt asking for more pain medication before she leaves. I discussed with pt that I have given her 3mg diluadid. On her last dose I offered her her home oxycodone dose explaining that it will last longer to helpcontrol her pain. Pt states she wants IV because it works faster . Pt encouraged to call her pcp'milagrosce to see who is covering her doctor's pts for him to help her with pain control. Pt states I will return tomorrow bc I don't have any pain medication. I asked pt about her telling me she has 2 pills left. She states that it will only get her through the night. Return for any worsening symptoms. Amount and/or Complexity of Data Reviewed Clinical lab tests: reviewed and ordered Review and summarize past medical records: yes Discuss the patient with other providers: yes ED Prescriptions None Sign Off Checklist Clinical Impression: Complete ED Disposition: Complete Donna Mueller APRN 04/26/21 1849 Donna Mueller APRN 04/26/21 190 Cosigned by George Martinez MD at 04/29/2021 10:53 AM EST Associated attestation - George Martinez MD - 04/29/2021 10:53 AM EST Seen by AJAY only. * ED Triage Notes - Andrew Gonzalez RN - 04/26/2021 11:50 AM EST Pt with c/o increased abd pain since this am. Pt with hx of pancreatitis. Pt just dcd from here forsame. documented in this encounter Plan of Treatment Not on file documented as of this encounter Procedures Procedure Name Priority Date/Time Associated Diagnosis Comments COMPREHENSIVE URINE DRUG SCREENING,QUALITATIVE ASSAY, >= 27 DRUG CLASSES Routine 04/26/2021 6:28 PM EST URINALYSIS MICROSCOPIC FOR UA REFLEX STAT 04/26/2021 1:46 PM EST URINALYSIS WITH REFLEX MICROSCOPIC STAT 04/26/2021 1:46 PM EST EXTRA TUBE LAVENDER TOP Routine 04/26/2021 1:07 PM EST LACTATE, VENOUS STAT 04/26/2021 1:07 PM EST EXTRA TUBES Routine 04/26/2021 1:07 PM EST TEST QUALITATIVE PLASMA STAT 04/26/2021 1:07 PM EST LIPASE, PLASMA STAT 04/26/2021 1:07 PM EST COMPREHENSIVE METABOLIC PANEL, PLASMA STAT 04/26/2021 1:07 PM EST documented in this encounter Results * (ABNORMAL) Urine Drug Screen Qual (04/26/2021 6:28 PM EST) Fluconazole Positive( A) Negative 04/27/2021 6:21 PM EST [facility] Ibuprofen Positive( A) Negative 04/27/2021 6:21 PM EST [facility] Oxycodone Positive( A) Negative 04/27/2021 6:21 PM EST [facility] Venlafaxine Positive( A) Negative 04/27/2021 6:21 PM EST [facility] Comprehensive Urine Drug Screen Result Positive( A) Negative 04/27/2021 6:21 PM EST [facility] Urine Urine specimen obtained by clean catch procedure / Unknown Non-blood Collection / Unknown 04/26/2021 6:28 PM EST 04/26/2021 6:32 PM EST us Robin Bailey MD LAB URINE ORDERABLES Final Res ult Performing Organization Address [facility] Co de Phone Number [facility] [address] [place] [address] * Urinalysis Microscopic Examination (04/26/2021 1:46 PM EST) Urine Urine specimen obtained by clean catch procedure / Unknown Non-blood Collection / Unknown 04/26/2021 1:46 PM EST 04/26/2021 1:50 PM EST us Donna Yan Ervin ORELLANA LAB URINE ORDERABLES Final Result Performing Organization Address [facility] Co de Phone Number [facility] [address] [place] [address] * (ABNORMAL) Urinalysis with reflex microscopic (04/26/2021 1:46 PM EST) Color, Urine Yellow LAB URINALYSIS - AUTOMATED METHOD 04/26/2021 2:18 PM EST [facility] Clarity, Urine Cloudy LAB URINALYSIS - AUTOMATED METHOD 04/26/2021 2:18 PM EST [facility] Spec [place], Urine 1.008 <=1.005 to >=1.030 LAB URINALYSIS - AUTOMATED METHOD 04/26/2021 2:18 PM EST [facility] pH, Urine 7.5 4.5 to 8 LAB URINALYSIS - AUTOMATED METHOD 04/26/2021 2:18 PM EST [facility] Protein, Urine Negative Negative mg/dL LAB URINALYSIS - AUTOMATED METHOD 04/26/2021 2:18 PM EST [facility] Glucose, Urine Negative Negative mg/dL LAB URINALYSIS - AUTOMATED METHOD 04/26/2021 2:18 PM EST [facility] Ketones, Urine Negative Negative mg/dL LAB URINALYSIS - AUTOMATED METHOD 04/26/2021 2:18 PM EST [facility] Blood, Urine Negative Negative LAB URINALYSIS - AUTOMATED METHOD 04/26/2021 2:18 PM EST [facility] Bilirubin, Urine Negative Negative LAB URINALYSIS - AUTOMATED METHOD 04/26/2021 2:18 PM EST [facility] Urobilinogen, Urine 0.2 0.2 to 1.0 mg/dL LAB URINALYSIS - AUTOMATED METHOD 04/26/2021 2:18 PM EST [facility] Leukocytes, Urine Small(A) Negative LAB URINALYSIS - AUTOMATED METHOD 04/26/2021 2:18 PM EST [facility] Nitrite, Urine Negative Negative LAB URINALYSIS - AUTOMATED METHOD 04/26/2021 2:18 PM EST [facility] RBC, Urine <1 0 to 3 /HPF 04/26/2021 2:18 PM EST [facility] Comment:This result was prev iously suppressed from the chart. WBC, Urine 0 - 5 0 to 5 /HPF 04/26/2021 2:18 PM EST [facility] Comment:This result was prev iously suppressed from the chart. Squamous Epithelial Cells 31 - 50(A) 0 to 5 /HPF 04/26/2021 2:18 PM EST [facility] Comment:This result was prev iously suppressed from the chart. Hyaline Casts 0 - 8 0 to 8 /LPF 04/26/2021 2:18 PM EST [facility] Comment:This result was prev iously suppressed from the chart. Bacteria, Urine Present Negative 04/26/2021 2:18 PM EST [facility] Comment:This result was prev iously suppressed from the chart. Urine Urine specimen obtained by clean catch procedure / Unknown Non-blood Collection / Unknown 04/26/2021 1:46 PM EST 04/26/2021 1:50 PM EST us Donna Mueller APRN LAB URINE ORDERABLES Final Result Performing Organization Address City/[facility]/ZIP Co de Phone Number [facility] [address] [place] [address] * Lavender Top (04/26/2021 1:07 PM EST) Extra Hold for add-ons. 04/26/2021 4:01 PM EST [facility] Comment:Auto resulted. Blood Venous blood specimen / Unknown 04/26/2021 1:07 PM EST 04/26/2021 1:19 PM EST George Martinez MD LAB BLOOD ORDERABLES Final Result Performing Organization Address [facility]/ZIP Co de Phone Number [facility] [address] [place] [address] * Lactic acid, venous (04/26/2021 1:07 PM EST) Pathologist [facility] Lactate, Venous, Whole Blood 1.4 0.5 - 2.2 mmol/L LAB HEMATOLOGY METHOD 04/26/2021 1:20 PM EST [facility] Blood Venous blood specimen / Unknown Venipuncture / Unknown 04/26/2021 1:07 PM EST 04/26/2021 1:18 PM EST Donna Mannmynor MONUMENT ERECTOR LAB BLOOD ORDERABLES Final Result Performing Organization Address City/[facility]/ZIP Co de Phone Number [facility] [address] [place] [address] * Lipase (04/26/2021 1:07 PM EST) Pathologist [facility] Lipase, Plasma 25 19 - 63 U/L 04/26/2021 1:53 PM EST [facility] Blood Venous blood specimen / Unknown Venipuncture / Unknown 04/26/2021 1:07 PM EST 04/26/2021 1:18 PM EST Donna Mannmynor [place] LAB BLOOD ORDERABLES Final Result Performing Organization Address City/[facility] Co de Phone Number [facility] [address] [place] [address] * hCG qualitative (04/26/2021 1:07 PM EST) [facility] Test Negative Negative 04/26/2021 1:53 PM EST [facility] Blood Venous blood specimen / Unknown Venipuncture / Unknown 04/26/2021 1:07 PM EST 04/26/2021 1:18 PM EST Donna Mueller MONUMENT ERECTOR LAB BLOOD ORDERABLES Final Result Performing Organization Address City/[facility]/ZIP Co de Phone Number [facility] [address] [place] [address] * (ABNORMAL) CMP (04/26/2021 1:07 PM EST) [facility] Glucose, Plasma 97 74 - 99 mg/dL 04/26/2021 1:53 PM EST [facility] BUN, Plasma 5(L) 7 - 21 mg/dL 04/26/2021 1:53 PM EST [facility] Creatinine, Plasma 0.55(L) 0.60 - 1.10 mg/dL 04/26/2021 1:53 PM EST [facility] BUN/Creatinine Ratio 9 04/26/2021 1:53 PM EST [facility] Sodium, Plasma 134(L) 136 - 145 mmol/L 04/26/2021 1:53 PM EST [facility] Potassium, Plasma 4.0 3.7 - 4.8 mmol/L 04/26/2021 1:53 PM EST [facility] Comment:Reference range for Serum potassium is 0.2 to 0.5 mmol/L higher than Plasma range. Chloride, Plasma 101 97 - 107 mmol/L 04/26/2021 1:53 PM EST [facility] CO2, Plasma 23 22 - 29 mmol/L 04/26/2021 1:53 PM EST [facility] Anion Gap 10 6 - 16 mmol/L 04/26/2021 1:53 PM EST [facility] Total Calcium, Plasma 9.1 8.9 - 10.2 mg/dL 04/26/2021 1:53 PM [facility] Total Protein 6.3 6.3 - 7.9 g/dL 04/26/2021 1:53 PM EST [facility] Albumin, Plasma 3.6 3.5 - 5.2 g/dL 04/26/2021 1:53 PM [facility] AST, Plasma 16 11 - 32 U/L 04/26/2021 1:53 PM [facility] ALT, Plasma 9 8 - 33 U/L 04/26/2021 1:53 PM [facility] Alkaline Phosphatase, Plasma 87 35 - 104 U/L 04/26/2021 1:53 PM [facility] Total Bilirubin, Plasma <0.2(L) 0.2 - 1.1 mg/dL 04/26/2021 1:53 PM EST [facility] eGFR >60 >60 mL/min/1.7 3m*2 04/26/2021 1:53 PM EST [facility] Comment:eGFR = estimated GFR ; eGFR units = mL/min/1.73 sq meters Chronic Kidney Disease is considered if eGFR <60 mL/min/1.73 sq meters Kidney failure is considered if eGFR is <15 mL/min/1.73 sq meters. eGFR assumes steady state plasma creatinine concentration; not applicable if renal function is rapidly changing or patient is on dialysis. eGFR, if AFR/AM >60 >60 mL/min/1.7 3m*2 04/26/2021 1:53 PM EST [facility] Comment:eGFR = estimated GFR ; eGFR units = mL/min/1.73 sq meters Chronic Kidney Disease is considered if eGFR <60 mL/min/1.73 sq meters Kidney failure is considered if eGFR is <15 mL/min/1.73 sq meters. eGFR assumes steady state plasma creatinine concentration; not applicable if renal function is rapidly changing or patient is on dialysis. Blood Venous blood specimen / Unknown Venipuncture / Unknown 04/26/2021 1:07 PM EST 04/26/2021 1:18 PM EST Donna Mueller MONUMENT ERECTOR LAB BLOOD ORDERABLES Final Result Performing Organization Address City/State/[facility] Co de Phone Number [facility] [address] [place] [address] documented in this encounter Visit Diagnoses Diagnosis Chronic pancreatitis, unspecified pancreatitis type (CMS/HCC)- Primary Other chronic pain documented in this encounter Administered Medications Inactive Administered Medications - up to 3 most recent administrations Medication Order MAR Action Action Date Dose Rate Site HYDROmorphone (Dilaudid) injection 1 mg 1 mg, Intravenous, Once, 1 dose, On Thu04/26/21 at 1220, Routine Given 04/26/2021 1:14 PM EST 1 mg HYDROmorphone (Dilaudid) injection 1 mg 1 mg, Intravenous, Once, 1 dose, On Thu04/26/21 at 1355, STAT Given 04/26/2021 2:15 PM EST 1 mg HYDROmorphone (Dilaudid) injection 1 mg 1 mg, Intravenous, Once, 1 dose, On Thu04/26/21 at 1445, STAT Given 04/26/2021 2:47 PM EST 1 mg ondansetron (Zofran) injection 4 mg 4 mg, Intravenous, Once, 1 dose, On Thu04/26/21 at 1220, STAT Given 04/26/2021 1:09 PM EST 4 mg promethazine (Phenergan) injection 25 mg 25 mg, Intravenous, Once, 1 dose, On Thu04/26/21 at 1620, STAT Given 04/26/2021 4:21 PM EST 25 mg sodium chloride 0.9 % bolus 1,000 mL 1,000 mL, Intravenous, Once, 1 dose, On Thu04/26/21 at 1220, Administer over 60 Minutes, Routine New Bag 04/26/2021 1:09 PM EST 1,000 mL 1000 mL/hr sodium chloride 0.9 % bolus 1,000 mL 1,000 mL, Intravenous, Once, 1 dose, On Thu04/26/21 at 1400, Administer over 15 Minutes, Routine New Bag 04/26/2021 2:49 PM EST 1,000 mL 4000 mL/hr documented in this encounter Active and Recently Administered Medications Times are shown in EST. Scheduled Medication Order 04/24/2021 04/25/2021 04/26/2021 HYDROmorphone (Dilaudid) injection 1 mg (COMPLETED) 1 mg, Intravenous, Once, 1 dose, On Thu04/26/21 at 1220, Routine 1314 (Given - Provid er: Shelby Rueda RN) HYDROmorphone (Dilaudid) injection 1 mg (COMPLETED) 1 mg, Intravenous, Once, 1 dose, On Thu04/26/21 at 1355, STAT 1415 (Given - Provid er: Shelby Rueda RN) HYDROmorphone (Dilaudid) injection 1 mg (COMPLETED) 1 mg, Intravenous, Once, 1 dose, On Thu04/26/21 at 1445, STAT 1447 (Given - Provid er: Shelby Rueda RN) ondansetron (Zofran) injection 4 mg (COMPLETED) 4 mg, Intravenous, Once, 1 dose, On Thu04/26/21 at 1220, STAT 1309 (Given - Provid er: Shelby Rueda RN) promethazine (Phenergan) injection 25 mg (COMPLETED) 25 mg, Intravenous, Once, 1 dose, On Thu04/26/21 at 1620, STAT 1621 (Given - Provid er: Mireya Andrews RN) sodium chloride 0.9 % bolus 1,000 mL (COMPLETED) 1,000 mL, Intravenous, Once, 1 dose, On Thu04/26/21 at 1220, Administer over 60 Minutes, Routine 1309 (New Bag - Prov ider: Shelby Rueda, RN)1444 (Stopped - Provider: Shelby Rueda RN) sodium chloride 0.9 % bolus 1,000 mL (COMPLETED) 1,000 mL, Intravenous, Once, 1 dose, On Thu04/26/21 at 1400, Administer over 15 Minutes, Routine 1449 (New Bag - Prov ider: Shelby Rueda RN)1625 (Stopped - Provider: Mireya Andrews RN) documented in this encounter Additional Health Concerns Assessment Noted Time A fall risk assessment has been complete d for the patient 11/21/2020 2:30 PM EDT documented as of this encounter Care Teams Shuttle Final Inspector Relationship Specialty Start Date End Date Elmo Escobar MD PCP - General 10/18/20 01/05/23 documented as of this encounter
--- OUTSIDE RECORDS SUMMARY | 2024-02-03 15:26 | XMS_ITS | Encounter Summary ---
Author Organization Healthcare Address [address] [place] [address] Care Team Providers Care Aircrewman Name Role Phone Elmo Escobar MD Primary Care Provider [phone] Encounter Details Date Type Department Care Team ([facility] Contact Info) Description 04/22/2021 Telephone External Location [address] [place] [address] Silver Swan MD [address] [place] [address] Social History Tobacco Use Types Packs/Day Years [...] encounter Miscellaneous Notes * Telephone Encounter - Silver Swan MD - 04/22/2021 8:57 AM EST I called Ms Mcnally to inform her of the low fecal elastase that returned at < 10 (normal > 100), and how it indicates that she 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 She will have follow-up with GI. documented in this encounter Plan of Treatment Not on file documented as of this encounter Visit Diagnoses Not on filedocumented in this encounter Additional Health Concerns Assessment Noted Time A fall risk assessment has been complete d for the patient 11/21/2020 2:30 PM EDT documented as of this encounter Care Teams Aircrewman Relationship Specialty Start Date End Date Elmo Escobar MD PCP - General 10/18/20 01/05/23 documented as of this encounter
--- OUTSIDE RECORDS SUMMARY | 2024-02-03 15:27 | XMS_ITS | Encounter Summary ---
Author Organization [facility] Address [address] [place] [address] Care Team Providers Care Hazardous Waste Remover Name Role Phone Elmo Escobar MD Primary Care Provider [phone] Encounter Details Date Type Department Care Team (Latest Contact Info) Description 04/10/2021 Travel Social History Tobacco Use Types Packs/Day [...] as of this encounter Care Teams Hazardous Waste Remover Relationship Specialty Start Date End Date Elmo Escobar MD PCP - General 10/18/20 01/05/23 documented as of this encounter
--- OUTSIDE RECORDS SUMMARY | 2024-02-03 15:27 | XMS_ITS | Encounter Summary ---
Author Organization Healthcare Address [address] [place] [address] Care Team Providers Care Cabinet Maker Name Role Phone Elmo Esocbar MD Primary Care Provider [phone] Reason for Visit * Reason Comments Abdominal Pain * Auth/Cert Specialty Diagnoses / Procedures Referred By Contac t Referred To Contact Diagnoses Chronic pancreatitis, unspecified pancreatitis type (CMS/HCC) Trevon Faust MD [address] [place] [address] Phone: tel: fax: [facility] [address] [place] [address] Phone: tel: Referral ID Status Reason Start Date Expiration Date Visits Re quested Visits Authorized [id number] 1 1 Encounter Details Date Type Department Care Team (Latest Contact Info) Description 04/10/2021 1:19 PM EST - 04/20/2021 2:43 PM [facility] Hospital Encounter [facility] [address] [place] [address] Trevon Faust MD [address] [place] [address] Abel Valdez MD [address] [place] [address] Dipika Pruett MD [address] [place] [address] [place] [address] Roderick Kim MD [address] [place] [address] Chronic pancreatitis, unspecified pancreatitis type (CMS/HCC) (Primary Dx); Abdominal pain, epigastric; Acute gastric erosion Discharge Disposition: Home or Self Care Social [...] Sign Reading Time Taken Comments Blood Pressure 117/80 04/20/2021 6:11 AM EST Pulse 79 04/20/2021 6:11 AM EST Temperature 36.6 ??C (97.9 ??F) 04/20/2021 6:11 AM ES T Respiratory Rate 16 04/19/2021 7:23 AM EST Oxygen Saturation 97% 04/20/2021 6:11 AM EST Inhaled Oxygen Concentration - - Weight 91.3 kg (201 lb 4.5 oz) 04/10/2021 12:12 PM EST Height 165.1 cm (5' 5 ) 04/10/2021 12:12 PM EST Body Mass Index 33.49 04/10/2021 12:12 PM EST documented in this encounter Discharge Instructions * Discharge Instructions* Roderick Kim MD - 04/20/2021 9:38 AM EST -Please follow up with your doctors as advised. Follow up in GI clinic in 8 weeks -Please review your medications as these have changed. -Avoiding NSAIDs completely -Advance your diet form soft food to regular food slowly as tolerated in the setting of mild pancreatitis -Limit use of opiod pain medications ?? * Attachments The following attachments cannot be sent through Care Everywhere. * Fluconazole Oral Tablet 150 mg ([place] Island[place]) * Metoclopramide Oral Tablet 5 mg ([place]) * Sucralfate oral suspension ([place]) * Hydromorphone Oral Tablet 2 mg ([place]) documented in this encounter Medications at Time of Discharge acetaminophen (Tylenol) 500 MG tablet Take 1,000 mg by mouth every 6 (six) hours if needed for mild pain. 3 ascorbic acid (Vitamin C) 250 MG tablet Take 1 tablet (250 mg total) by mouth 1 (one) time each day. 30 tablet 11 02/11/2021 2 Cholecalciferol (VITAMIN D3 PO) Take 1 tablet by mouth 1 (one) time each day. 2 Cyanocobalamin (VITAMIN B-12 PO) Take 1 tablet by mouth 1 (one) time each day. 2 fluconazole (Diflucan) 150 MG tablet Take 1 tablet (150 mg total) by mouth 1 (one) time per week for 21 days. 3 tablet 04/23/2021 2 HYDROmorphone (Dilaudid) 2 MG tablet Take 1 tablet (2 mg total) by mouth every 8 (eight) hours if needed for severe pain for up to 9 doses. 9 tablet 04/20/2021 2 Latuda 40 MG tablet Take 40 mg by mouth 1 (one) time each day with breakfast. 10/14/2020 3 lidocaine (Lidoderm) 5 % patch Apply 1 patch topically if needed (shoulder). 2 Melatonin 10 MG tablet Take 10 tablets by mouth at night if needed (sleep). 2 metoclopramide (Reglan) 5 MG tablet Take 1 tablet (5 mg total) by mouth every 8 (eight) hours if needed (Nausea/vomiting) . 10 tablet 04/20/2021 2 naloxone (Narcan) 4 mg/0.1 mL nasal [...] a day if needed for severe pain. 2 pancrelipase, Nyh-Fync-Udsz, (Creon) 58558-59616 units capsule Take 2 capsules by mouth 3 (three) times a day with meals. 3 pantoprazole (Protonix) 40 MG EC tablet Take 1 tablet (40 mg total) by mouth 2 (two) times a day. Do not crush, chew, or split. 120 tablet 04/20/2021 3 pregabalin (Lyrica) 300 MG capsule Take 300 mg by mouth 2 (two) times a day. 2 sucralfate (Carafate) 1 GM/10ML suspension Take 10 mL (1 g total) by mouth every 6 (six) hours. 1200 mL 04/20/2021 2 venlafaxine XR (Effoxor-XR) 150 MG 24 hr capsule Take 150 mg by mouth 1 (one) time each day. 07/07/2020 3 documented as of this encounter Miscellaneous Notes * Nursing Note - Ashely Squires RN - 04/20/2021 2:13 PM EST Patient provided discharge instructions, with medication list, and education. Patient verbalized understanding of information provided and is agreeable to discharge. IV removed. * Consults - Elia Arthur MD - 04/20/2021 11:06 AM ESTAssociated Order(s): Inpatient consult to Palliative care Inpatient consult to Palliative care Consult performed by: Elia Arthur MD Consult ordered by: Abel Valdez MD Reason For Consult Symptom control Requesting Service: Hospital Medicine Requested Date/Time: 04/18/21 History Of Present Illness Rosibel Gayle is a 35 y.o. female presenting with severe abdominal pain in the setting of acute on chronic pancreatitis that has been present for a week(acute) and years(chronic pain) that has improvedwith bowel rest. Past Medical History She has a past medical history of Anxiety, Arthritis, Depression, Fibromyalgia, GERD (gastroesophageal reflux disease), Hypertension, Nicotine dependence, Obesity, and Pancreatitis.She has no past medical history of Adverse effect of anesthesia, Asthma, Awareness under anesthesia, Cancer ([facility]),CHF (congestive heart failure) ([facility]), COPD (chronic obstructive pulmonary disease) ([facility]), Coronary artery disease, Delayed emergence from general anesthesia, Diabetes mellitus ([facility]), Disease of thyroid gland, Hard to intubate, History of transfusion, Malignant hyperthermia, PONV (postoperative nausea and vomiting), Pseudocholinesterase deficiency, Spinal headache, or Stroke ([facility]). Surgical History She has a past surgical history that includes Cholecystectomy; ERCP; Esophagogastroduodenoscopy; and Hand surgery. Family History Son is alive and healthy Social History She reports that she has been smoking cigarettes. She has a 7.50 pack-year smoking history. She hasnever used smokeless tobacco. She reports previous alcohol use. She reports previous drug use. Frequency: 4.00 times per week. She lives in [place] with her children and [facility]. Allergies Morphine and related and Tramadol Medications Current Facility-Administered Medications Medication Dose Route Frequency Provider Last Rate Last Admin ??? acetaminophen (Tylenol) tablet 1,000 mg 1,000 mg Oral q6h INO Britton MD 1,000 mg at 04/20/21 0858 ??? bisacodyl (Dulcolax) suppository 10 mg 10 mg Rectal Daily Roderick Kim MD ??? enoxaparin (Lovenox) syringe 40 mg 40 mg Subcutaneous q24h INO Britton MD 40 mg at 04/19/21 0937 ??? fluconazole (Diflucan) tablet 150 mg 150 mg Oral Weekly Homero Gonzáles MD 150 mg at 04/16/21 1303 ??? HYDROmorphone (Dilaudid) tablet 2 mg 2 mg Oral q4h PRN Dipika Tolentino MD 2 mg at 04/20/21 0856 ??? hyoscyamine (Anaspaz,Levsin) tablet 0.125 mg 0.125 mg Oral TID Homero Gonzáles MD 0.125 mg at 04/20/21 0857 ??? lurasidone (Latuda) tablet 40 mg 40 mg Oral Nightly Claudio Britton MD 40 mg at 04/19/212035 ??? ocular lubricant (Artificial Tears) ophthalmic solution 1 drop 1 drop Both Eyes PRN Homero Gonzáles MD ??? ondansetron (Zofran) injection 4 mg 4 mg Intravenous q6h PRN Homero Gonzáles MD 4 mg at 04/18/21 0739 ??? pancrelipase (Creon) 17182 units capsule 2 capsule Oral TID with meals Homero Gonzáles MD 2 capsule at 04/19/21 1700 ??? pantoprazole (Protonix) EC tablet 40 mg 40 mg Oral BID Abel Valdez MD 40 mg at 04/19/212035 ??? polyethylene glycol (Miralax) packet 17 g 17 g Oral BID Roderick Kim MD ??? pregabalin (Lyrica) capsule 300 mg 300 mg Oral BID Claudio Britton MD 300 mg at 04/20/21 0905 ??? promethazine (Phenergan) tablet 25 mg 25 mg Oral q6h PRN Homero Gonzáles MD 25 mg at 04/19/212036 ??? senna-docusate (Janis-Colace) 8.6-50 MG per tablet 2 tablet 2 tablet Oral BID Roderick Kim MD 2 tablet at 04/19/21 0936 ??? sucralfate (Carafate) 1 GM/10ML suspension 1 g 1 g Oral q6h INO Homero Gonzáles MD 1 g at Review of Systems Review of Systems Constitutional: Negative for appetite change and fatigue. Respiratory: Negative for cough and shortness of breath. Gastrointestinal: Positive for abdominal pain. Negative for constipation, diarrhea, nausea and vomiting. Musculoskeletal: Negative. Neurological: Negative for dizziness and weakness. Psychiatric/Behavioral: Negative for dysphoric mood and sleep disturbance. The patient is not nervous/anxious. All other systems reviewed and are negative. Physical Exam Physical Exam Vitals and nursing note reviewed. HENT: Mouth/Throat: Mouth: Mucous membranes are moist. Eyes: General: No scleral icterus. Cardiovascular: Rate and Rhythm: Normal rate and regular rhythm. Pulmonary: Effort: Pulmonary effort is normal. Abdominal: General: There is no distension. Musculoskeletal: Comments: Sarcopenia absent Lymphadenopathy: Comments: No widespread bruising Skin: Coloration: Skin is not mottled. Neurological: Comments: Moves all four extremities Psychiatric: Behavior: Behavior is not agitated. Last Recorded Vitals Blood pressure 117/80, pulse 79, temperature 36.6 ??C (97.9 ??F), resp. rate 16, height 1.651 m (5'5 ), weight 91.3 kg (201 lb 4.5 oz), SpO2 97 %, not currently . Relevant Results Labs: WBC=4.61, Cr=0.66 Images viewed by me: CT abd: pancreas is normal, no stranding or other evidence of pancreatitis. Remaining abd exam is unremarkable. Encounter Date: 04/10/21 ECG Adult Result Value EKG DIAGNOSIS CLASS Abnormal Ventricular Rate 78 Atrial Rate 78 CA Interval 130 QRSD Interval 82 QT Interval 396 QTC Interval 451 P Blanco 18 R Blanco 10 T Wave Blanco 0 Diagnosis Normal sinus rhythm Diagnosis Cannot rule out Diagnosis Anterior infarct Diagnosis , age undetermined Diagnosis Abnormal ECG Diagnosis Confirmed by Benjamin Razo ([id number]) on 04/19/2021 1:15:38 PM *Note: Due to a large number of results and/or encounters for the requested time period, some results have not been displayed. A complete set of results can be found in Results Review. Assessment/Plan Principal Problem: Chronic pancreatitis (CMS/HCC) Active Problems: Bipolar depression (CMS/HCC) Anxiety Fibromyalgia Obesity (BMI 35.0-39.9 without comorbidity) Gastric erosions Ms. Gayle has chronic pancreatitis pain with acute exacerbation. Her description of her pain is mostly the chronic pain she has been having for years. She describes some vague throbbing pain which is the only indication I could glean that she was having acute pancreatitis. Her CT scan shows no evidence of acute pancreatitis. At the time of my visit her abd pain was improving. Rec: -For acute flair with lab and or CT evidence of acute pancreatitis I would treat her acute pancreatitis pain in a similar way to any patient with acute pancreatits to consist of bowel rest, GI decompression and IV opioids for severe pain if she is unable to take po medication -would change ketamine to 10mg IVPB q8H scheduled for ketamine to be most beneficial -to avoid or decrease use of opioids ketorolac 15mg IVP q6H scheduled would be a beneficial non opioid analgesic Regarding chronic pain I would advise not to make any adjustments to her chronic pain regimen whileshe is an inpatient for acute pain. The standard of care in such clinical circumstances is to treatacute pain. Once acute pain is resolving then resume her chronic pain regimen and discharge home onprior chronic pain regimen. If there is a need to change her chronic pain regimen I would consult with her outpatient prescriber before making any changes as it is not in her best interest to start an inpatient regimen that will not be continued on as an outpatient. For future admissions please refer to this note and the palliative care note dated 03/29/21 as a reference. The palliative care team does not have the resources to actively assist in the management of chronic pain patients who do not also have a terminal diagnosis. We will of course be available to assist with telephone consultation for Ms. Gayle in the future but will not be able to evaluate her chronic pain as an inpatient on future admissions. * Discharge Summary - Roderick Kim MD - 04/20/2021 9:38 AM EST Hospitalization Admit Date/Time: 04/10/2021 1:19 PM Admitting Attending: Trevon Faust Discharge Date: 04/20/2021 Discharge Attending Physician: Roderick Kim Md PCP name and Address: Elmo Escobar MD [address] [facility] / [place] [address] Referring provider name and address: No referring provider defined for this encounter. Chief Concern, Brief History of Present Illness, and Hospital Course Rosibel Gayle is a 35 y.o. female with chronic pancreatitis presumed to be secondary to prior heavy alcohol use (last drank heavily 7 years ago) who presented on 04/10/2021 with two days of epigastric and LUQ abdominal pain, nausea, and decreased PO intake. She was diagnosed and treated for acute pancr eatitis from unclear etiology. Abdominal pain though didn't improve which led to multiple investigations including EGD which were all unremarkable, H pyroli -ve. Patient requested Iv dilaudid often and upo weaning pain medications, requested change of doctors. PPI + sucralfate were added by GI which eventually helped with pain. Patient then requested discharge and was sent home on 04/20 # Acute on chronic epigastric pain Etiology: Initially thought to be from acute on chronic mild pancreatitis, erosive gastropathy w/ healing erosions but remains unclear at this point. Pain is constant 10/10 per patient. Imaging/EGD has been unable to discover a pathology to explain same. Functional pain remains in differential -Reviewed CT Abd/Pelvis w/ contrast Pancreas protocol and revealed no evidence of acute pancreatitis or sequelae of chronic pancreatitis -GI performed Endoscopy on 04/18 which showed erosive gastropathy with multiple healing lesions PLAN H- pyroli -ve -Started on sucralfate with improvement in pain, continue -Start PPI BID x 8 weeks per GI -Suspect component of gastroparesis given retained food in EGD->start reglan. Limit opiates -Multimodal pain control with lyrica, tylenol, opoids. -Avoid IV pain meds so as to transition to discharge planning -Consider switching velnafaxine to duloxetine. Velnafaxine was discontinued on 04/19, would allow a few weeks to start duloxetine as Op to avoid interaction and serotonin syndrome -Treat constipation -Advanced diet to Mechanical soft, GI, Low Fat, low fiber #Constipation, resolved -Continue PEG + Senna +Bisacodyl suppository PRN -Patient had a BM on 04/17 following suppository #Tinea corporis of right lower extremity -present for >1 years w/ failure of outpatient therapy -Continue Ketoconazole cream BID -Continue oral fluconazole 150mg once weekly x 4 weeks # Anxiety/bipolar - Continue patient's latuda. discontinue effexor. Will eventually switch to duloxetine/amitriptyline # Fibromyalgia -continue Lyrica/Pregabalin # Polysubstance use -UDs + THC, Amphetamines, +fentanyl -THX - patient has history of marijuana use -Fentanyl - given in the ER -Patient denies amphetamine use, unclear if cross reactivity Obesity Class 1 (BMI 30-34.9) Surgeries and Procedures Medication List .. acetaminophen 500 MG tablet Commonly known as: Tylenol Take 1,000 mg by mouth every 6 (six) hours if needed for mild pain. ascorbic acid 250 MG tablet Commonly known as: Vitamin C Take 1 tablet (250 mg total) by mouth 1 (one) time each day. fluconazole 150 MG tablet Commonly known as: Diflucan Take 1 tablet (150 mg total) by mouth 1 (one) time per week for 21 days. Start taking on: April 23, 2021 Latuda 40 MG tablet Generic drug: lurasidone Take 40 mg by mouth 1 (one) time each day with breakfast. Lidoderm 5 % patch Generic drug: lidocaine Apply 1 patch topically if needed (shoulder). Melatonin 10 MG tablet Take 10 tablets by mouth at night if needed (sleep). metoclopramide 5 MG tablet Commonly known as: Reglan Take 1 tablet (5 mg total) by mouth every 8 (eight) hours if needed (Nausea/vomiting). naloxone 4 mg/0.1 mL nasal spray Commonly known as: Narcan Administer 1 spray (4 mg total) into affected nostril(s) if needed for opioid reversal or respiratory depression. Call 911. Give 4 mg (1 spray) into one nostril. Repeat every 2-3 minutes as needed, alternating nostrils, until medical assistance arrives. oxyCODONE 10 MG immediate release tablet Commonly known as: Roxicodone Take 10 mg by mouth 2 (two) times a day if needed for severe pain. pancrelipase (Gbn-Hbog-Kkbk) [id number] units capsule Commonly known as: Creon Take [...] total) by mouth every 6 (six) hours. VITAMIN B-12 PO Take 1 tablet by mouth 1 (one) time each day. VITAMIN D3 PO Take 1 tablet by mouth 1 (one) time each day. Where to Get Your Medications These medications were sent to [facility] - [place], [place] - [address] [place] [address] [address] [place] [address], [facility] [address] ?? fluconazole 150 MG tablet ?? metoclopramide 5 MG tablet ?? pantoprazole 40 MG EC tablet ?? sucralfate 1 GM/10ML suspension Discharge Diagnosis Medical Problems Active and Resolved Hospital Problems Hospital Bipolar depression (CMS/HCC) Anxiety Fibromyalgia Obesity (BMI 35.0-39.9 without comorbidity) * (Principal) Chronic pancreatitis (CMS/HCC) Gastric erosions RESOLVED: Abdominal pain, epigastric RESOLVED: Intractable pain Post Discharge Instructions -Please follow up with your doctors as advised. Follow up in GI clinic in 8 weeks -Please review your medications as these have changed. -Avoiding NSAIDs completely -Advance your diet form soft food to regular food slowly as tolerated in the setting of mild pancreatitis -Limit use of opiod pain medications Outpatient Follow-Up No future appointments. Test Results Pending At Discharge Pending Labs Order Current Status Pancreatic elastase, fecal In process Surgical Pathology Exam In process Pertinent Physical Exam At Time of Discharge Physical Exam Constitutional: General: She is awake. HENT: Mouth/Throat: Mouth: Mucous membranes are moist. Cardiovascular: Rate and Rhythm: Normal rate and regular rhythm. Heart sounds: Normal heart sounds. Pulmonary: Effort: Pulmonary effort is normal. Breath sounds: Normal breath sounds. Abdominal: General: Abdomen is flat. There is no distension. Palpations: Abdomen is soft. Tenderness: There is abdominal tenderness (minimal epigastric tenderness). There is no guarding. Skin: Findings: Lesion present. Comments: There is a ~[id number] annular lesion in the medial aspect of the right lower extremity. Thelesion is primarily erythematous ring with central clearing. Mild amount of scale present. Only onelesion is present, no satelite lesions. Neurological: General: No focal deficit present. Mental Status: She is oriented to person, place, and time. Psychiatric: Behavior: Behavior is cooperative. Comments: Flat facies Discharge Disposition/Condition Disposition: Home Condition: Stable (s/sx potential problems absent or manageable) I spent >30 minutes of patient care and instruction time in preparation for this discharge. * Hospital Course - Roderick Kim MD - 04/20/2021 9:32 AM EST Rosibel Gayle is a 35 y.o. female with chronic pancreatitis presumed to be secondary to prior heavy alcohol use (last drank heavily 7 years ago) who presented on 04/10/2021 with two days of epigastric and LUQ abdominal pain, nausea, and decreased PO intake. She was diagnosed and treated for acute pancr eatitis from unclear etiology. Abdominal pain though didn't improve which led to multiple investigations including EGD which were all unremarkable, H pyroli -ve. Patient requested Iv dilaudid often and upo weaning pain medications, requested change of doctors. PPI + sucralfate were added by GI which eventually helped with pain. Patient then requested discharge and was sent home on 04/20 # Acute on chronic epigastric pain Etiology: Initially thought to be from acute on chronic mild pancreatitis, erosive gastropathy w/ healing erosions but remains unclear at this point. Pain is constant 10/10 per patient. Imaging/EGD has been unable to discover a pathology to explain same. Functional pain remains in differential -Reviewed CT Abd/Pelvis w/ contrast Pancreas protocol and revealed no evidence of acute pancreatitis or sequelae of chronic pancreatitis -GI performed Endoscopy on 04/18 which showed erosive gastropathy with multiple healing lesions PLAN H- pyroli -ve -Started on sucralfate with improvement in pain, continue -Start PPI BID x 8 weeks per GI -Suspect component of gastroparesis given retained food in EGD->start reglan. Limit opiates -Multimodal pain control with lyrica, tylenol, opoids. -Avoid IV pain meds so as to transition to discharge planning -Consider switching velnafaxine to duloxetine. Velnafaxine was discontinued on 04/19, would allow a few weeks to start duloxetine as Op to avoid interaction and serotonin syndrome -Treat constipation -Advanced diet to Mechanical soft, GI, Low Fat, low fiber #Constipation, resolved -Continue PEG + Senna +Bisacodyl suppository PRN -Patient had a BM on 04/17 following suppository #Tinea corporis of right lower extremity -present for >1 years w/ failure of outpatient therapy -Continue Ketoconazole cream BID -Continue oral fluconazole 150mg once weekly x 4 weeks # Anxiety/bipolar - Continue patient's latuda. discontinue effexor. Will eventually switch to duloxetine/amitriptyline # Fibromyalgia -continue Lyrica/Pregabalin # Polysubstance use -UDs + THC, Amphetamines, +fentanyl -THX - patient has history of marijuana use -Fentanyl - given in the ER -Patient denies amphetamine use, unclear if cross reactivity Obesity Class 1 (BMI 30-34.9) * Progress Notes - Roderick Kim MD - 04/20/2021 7:54 AM EST Subjective Mr Gayle reports minimal pain today, to my surprise. She has little nausea and feels ready to go home. Did have a large Bm yday. Review of Systems Respiratory: Negative for shortness of breath. Cardiovascular: Negative for leg swelling. Gastrointestinal: Positive for abdominal pain (much improved). Negative for constipation. Objective Physical Exam Constitutional: General: She is awake. HENT: Mouth/Throat: Mouth: Mucous membranes are moist. Cardiovascular: Rate and Rhythm: Normal rate and regular rhythm. Heart sounds: Normal heart sounds. Pulmonary: Effort: Pulmonary effort is normal. Breath sounds: Normal breath sounds. Abdominal: General: Abdomen is flat. There is no distension. Palpations: Abdomen is soft. Tenderness: There is abdominal tenderness (minimal epigastric tenderness). There is no guarding. Skin: Findings: Lesion present. Comments: There is a ~3dfd6br annular lesion in the medial aspect of the right lower extremity. Thelesion is primarily erythematous ring with central clearing. Mild amount of scale present. Only onelesion is present, no satelite lesions. Neurological: General: No focal deficit present. Mental Status: She is oriented to person, place, and time. Psychiatric: Behavior: Behavior is cooperative. Comments: Flat facies Last Recorded Vitals Blood pressure 117/80, pulse 79, temperature 36.6 ??C (97.9 ??F), resp. rate 16, height 1.651 m (5'5 ), weight 91.3 kg (201 lb 4.5 oz), SpO2 97 %, not currently . Assessment/Plan Principal Problem: Chronic pancreatitis (CMS/HCC) Active Problems: Bipolar depression (CMS/HCC) Anxiety Fibromyalgia Abdominal pain, epigastric Obesity (BMI 35.0-39.9 without comorbidity) Gastric erosions # Acute on chronic epigastric pain Etiology: Initially thought to be from acute on chronic mild pancreatitis, erosive gastropathy w/ healing erosions but remains unclear at this point. Pain is constant 10/10 per patient. Imaging/EGD has been unable to discover a pathology to explain same. Functional pain remains in differential -Reviewed CT Abd/Pelvis w/ contrast Pancreas protocol and revealed no evidence of acute pancreatitis or sequelae of chronic pancreatitis -GI performed Endoscopy on 04/18 which showed erosive gastropathy with multiple healing lesions PLAN -Started on sucralfate with improvement in pain, continue -Start PPI BID x 8 weeks per GI -Suspect component of gastroparesis given retained food in EGD->start reglan. Limit opiates -Multimodal pain control with lyrica, tylenol, opoids. -Avoid IV pain meds so as to transition to discharge planning -Consider switching velnafaxine to duloxetine. Velnafaxine was discontinued on 04/19, would allow a few weeks to start duloxetine as Op to avoid interaction and serotonin syndrome -Treat constipation -Advanced diet to Mechanical soft, GI, Low Fat, low fiber #Constipation, resolved -Continue PEG + Senna +Bisacodyl suppository PRN -Patient had a BM on 04/17 following suppository #Tinea corporis of right lower extremity -present for >1 years w/ failure of outpatient therapy -Continue Ketoconazole cream BID -Continue oral fluconazole 150mg once weekly x 4 weeks #??Anxiety/bipolar - Continue patient's latuda. discontinue effexor. Will eventually switch to duloxetine/amitriptyline # Fibromyalgia -continue Lyrica/Pregabalin ?? #??Polysubstance use -UDs + THC, Amphetamines, +fentanyl -THX - patient has history of marijuana use -Fentanyl - given in the ER -Patient denies amphetamine use, unclear if cross reactivity ?? Obesity Class 1 (BMI 30-34.9) Diet: Regular diet Ppx: Lovenox * Progress Notes - Mohsen Alonzo MD - 04/19/2021 2:59 PM EST Gastroenterology Progress Note Summary Mrs. Gayle is a 35 yo lady with PMH of bipolar disorder, fibromyalgia, recurrent acute pancreatitis, gastric and duodenal ulcers who presents with severe epigastric pain, for which we were consulted for further evaluation. Subjective Reports some improvement in pain following initiation of sucralfate. Less tearful today, still extremely anxious. ROS: Gen: No F/C/R CVS: No CP. No orthopnea or PND. RES: No cough or dyspnea reported. GI: No N/V/D Objective Vitals: 04/18/21 1834 04/18/21 1845 04/18/21195604/19/21 0723 BP: 107/76 125/84 127/82 97/63 BP Location: Pulse: 100 107 (!) 111 78 Resp: 16 16 16 Temp: 36.7 ??C (98 ??F) 36.8 ??C (98.2 ??F) 36.8 ??C (98.3 ??F) 36.7 ??C (98 ??F) TempSrc: Oral Oral SpO2: 95% 96% 97% 93% Weight: Height: BMI: Body mass index is 33.49 kg/m??. Physical Exam: General Well appearing, was sleeping comfortably when I walked in Eyes EOMI Head NC/AT ENT OP moist. Hearing grossly normal. CV RRR, S1 + S2. RES Non-labored breathing GI Soft. mildly tender in epigastrium and LUQ. No hernias appreciated.No peritoneal signs FANI AAOx4. EXT No cyanosis. No edema Skin Rash on hands and face, warm and dry PSY Anxious/jittery mood and affect ?? I/O: I/O last 3 completed shifts: In: 186 (20.4 mL/kg) [P.O.:462; I.V.:1400 (15.3 mL/kg)] Out: - (0 mL/kg) Weight: 91.3 kg I/O this shift: In: 240 [P.O.:240] Out: - Labs: CBC: Results from last 7 days Lab Units 04/19/21 0224 04/18/21 0348 04/16/21 0455 WBC 10*3/uL 4.61 7.29 4.44 HEMOGLOBIN g/dL 10.4* 11.8 11.7 HEMATOCRIT % 32.8* 38.2 37.4 PLATELETS 10*3/uL 193 223 236 CMP: Results from last 7 days Lab Units 04/19/21 0244 04/18/21 0348 04/17/21 0418 04/16/21 0454 04/16/21 0454 SODIUM mmol/L 138 138 142 < > 141 POTASSIUM mmol/L 3.7 4.2 3.9 < > 4.0 CHLORIDE mmol/L 102 101 100 < > 102 CO2 mmol/L 27 25 30* < > 29 BUN mg/dL 6* 4* <3* < > 4* CREATININE mg/dL 0.66 0.71 0.72 < > 0.74 CALCIUM mg/dL 8.9 9.5 9.7 < > 9.7 BILIRUBIN TOTAL mg/dL 0.2 0.2 -- -- 0.2 ALKALINE PHOSPHATASE U/L 103 111* -- -- 97 ALT U/L 24 33 -- -- 14 AST U/L 26 37* -- -- 15 GLUCOSE mg/dL 126* 100* 100* < > 81 < > = values in this interval not displayed. Troponins: No results found for: TROPONINT Microbiology/Abx: Results Procedure Component Value Units Date/Time Helicobacter pylori Antigen [[id number]] (Normal) Collected: 04/18/21 0754 Order Status: Completed Specimen: Stool from Rectum Updated: 04/19/21 1003 Helicobacter pylori Antigen Result Negative Imaging: Imaging reviewed by me. EKG: Encounter Date: 04/10/21 ECG Adult Result Value EKG DIAGNOSIS CLASS Abnormal Ventricular Rate 78 Atrial Rate 78 CA Interval 130 QRSD Interval 82 QT Interval 396 QTC Interval 451 P Blanco 18 R Blanco 10 T Wave Blanco 0 Diagnosis Normal sinus rhythm Diagnosis Cannot rule out Diagnosis Anterior infarct Diagnosis , age undetermined Diagnosis Abnormal ECG Diagnosis Confirmed by Benjamin Razo ([id number]) on 04/19/2021 1:15:38 PM *Note: Due to a large number of results and/or encounters for the requested time period, some results have not been displayed. A complete set of results can be found in Results Review. Medications (scheduled): acetaminophen, 1,000 mg, Oral, q6h INO bisacodyl, 10 mg, Rectal, Daily enoxaparin, 40 mg, Subcutaneous, q24h INO fluconazole, 150 mg, Oral, Weekly hyoscyamine, 0.125 mg, Oral, TID lurasidone, 40 mg, Oral, Nightly metoclopramide, 10 mg, Intravenous, q6h pancrelipase (Ccz-Mhge-Twoh), 2 capsule, Oral, TID with meals pantoprazole, 40 mg, Oral, BID polyethylene glycol, 17 g, Oral, BID pregabalin, 300 mg, Oral, BID senna-docusate, 2 tablet, Oral, BID sucralfate, 1 g, Oral, q6h INO venlafaxine XR, 150 mg, Oral, Daily with breakfast Medications (continous): Medications (PRN): HYDROmorphone, ketamine (Ketalar) IVPB, ocular lubricant, ondansetron, promethazine Assessment and Plan Mrs. Gayle is a 35 yo lady with PMH of bipolar disorder, fibromyalgia, recurrent acute pancreatitis, gastric and duodenal ulcers who presents with severe epigastric pain, for which we were consulted for further evaluation. ?? 1. Epigastric pain 2. Prior hx of gastric and duodenal ulcers 3. Prior episodes of acute pancreatitis, s/p CCY, reports stopped drinking 6 months ago 4. Bipolar disorder 5. Diffuse rash 6. Gastric wall thickening 2/2 Erosive gastropathy 7. Mild acute pancreatitis meeting 2/3 criteria (elevated lipase > 3 x ULN and abdominal pain) ?? - OA lipase = 232, CBC, CMP normal - CT with gastric wall thickening and prox SB dilation, with improvement from end feb to mid mar - hx of recent excessive NSAID use 3200 mg/ day of ibuprofen x 4 weeks due to abdominal pain - had had prior evaluation for SOD, s/p sphincterotomy - EGD 09/2020 with gastric and duodenal ulcers. - path with erosive gastropathy negative for Hpylori - bentyl and bowel regimen have not helped with the pain and even dilaudid doesn't completley relieve the pain -04/18/21: Erosive gastropathy again noted with many widespread erosions, path pending - started on PPI BID and sucralfate 1 g QID scheduled with some improvement in symptoms today Recommendations: - Omeprazole 40 mg BID + sucralfate 1 g QID scheduled x 8 weeks to help with healing - follow path results to rule out H.Pylroi - would recommend follow up in GI clinic in 8 weeks to further evalaute her pain - counselled regarding avoiding NSAIDs completely - slow diet advancement as tolerated in the setting of mild pancreatitis - pain management per primary team Seen and staffed with Dr. Kaushik Alonzo MD PGY-5 Gastroenterology Fellow [facility] Pager: [phone] Cosigned by Alondra Canchola MD at 04/22/2021 3:07 PM EST Associated attestation - Alondra Canchola MD - 04/22/2021 3:07 PM EST I saw and evaluated the patient with the resident/fellow. I discussed the case with the resident/fellow and agree with the findings and plan as documented. * Progress Notes - Roderick Kim MD - 04/19/2021 8:14 AM EST Subjective Ms. Gayle was seen bedside. I took over care today as patient requested change of doctors re pain medications. Patient resting in bed today. Reports 10/10 pain in upper abd wrapping to left back. Sheappears comfortable. She had 50% of breakfast. Says sucralfate helped with pain. I discussed pain control with PO pain meds. She is agreeable. Review of Systems Respiratory: Negative for shortness of breath. Cardiovascular: Negative for leg swelling. Gastrointestinal: Positive for abdominal pain and constipation. Objective Physical Exam Constitutional: General: She is awake. HENT: Mouth/Throat: Mouth: Mucous membranes are moist. Cardiovascular: Rate and Rhythm: Normal rate and regular rhythm. Heart sounds: Normal heart sounds. Pulmonary: Effort: Pulmonary effort is normal. Breath sounds: Normal breath sounds. Abdominal: General: Abdomen is flat. There is no distension. Palpations: Abdomen is soft. Tenderness: There is abdominal tenderness (epigastric tenderness). There is no guarding. Skin: Findings: Lesion present. Comments: There is a ~8tmp3ud annular lesion in the medial aspect of the right lower extremity. Thelesion is primarily erythematous ring with central clearing. Mild amount of scale present. Only onelesion is present, no satelite lesions. Neurological: General: No focal deficit present. Mental Status: She is oriented to person, place, and time. Psychiatric: Behavior: Behavior is cooperative. Comments: Flat facies Last Recorded Vitals Blood pressure 97/63, pulse 78, temperature 36.7 ??C (98 ??F), resp. rate 16, height 1.651 m (5' 5 ), weight 91.3 kg (201 lb 4.5 oz), SpO2 93 %, not currently . Assessment/Plan Principal Problem: Chronic pancreatitis (CMS/HCC) Active Problems: Bipolar depression (CMS/HCC) Anxiety Fibromyalgia Abdominal pain, epigastric Obesity (BMI 35.0-39.9 without comorbidity) Gastric erosions # Acute on chronic epigastric pain Etiology: Initially thought to be from acute on chronic mild pancreatitis, erosive gastropathy w/ healing erosions but remains unclear at this point. Pain is constant 10/10 per patient. Imaging/EGD has been unable to discover a pathology to explain same. Functional pain remains in differential -Reviewed CT Abd/Pelvis w/ contrast Pancreas protocol and revealed no evidence of acute pancreatitis or sequelae of chronic pancreatitis -GI performed Endoscopy on 04/18 which showed erosive gastropathy with multiple healing lesions PLAN -Avoid IV pain meds so as to transition to discharge planning -Multimodal pain control with lyrica, tylenol, opoids. -Consider switching velnafaxine to duloxetine -Suspect component of gastroparesis given retained food in EGD->start reglan. Limit opiates -Continue sucralfate -Start PPI BID x 8 weeks per GI -Treat constipation -Consider pain management consult -Advanced diet to Mechanical soft, GI, Low Fat, low fiber #Constipation, improved -Continue PEG + Senna +Bisacodyl suppository PRN -Patient had a BM on 04/17 following suppository #Tinea corporis of right lower extremity -present for >1 years w/ failure of outpatient therapy -Continue Ketoconazole cream BID -Continue oral fluconazole 150mg once weekly x 6 weeks #??Anxiety/bipolar - Continue patient's latuda. discontinue effexor. Will eventually switch to duloxetine/amitriptyline # Fibromyalgia -continue Lyrica/Pregabalin ?? #??Polysubstance use -UDs + THC, Amphetamines, +fentanyl -THX - patient has history of marijuana use -Fentanyl - given in the ER -Patient denies amphetamine use, unclear if cross reactivity ?? Obesity Class 1 (BMI 30-34.9) Diet: Regular diet Ppx: Lovenox * Progress Notes - Homero Gonzáles MD - 04/18/2021 3:55 PM EST Subjective Ms. Gayle was able to have an EGD today which revealed healing erosions and erosive gastropathy andno evidence of mass. We discussed these results with the patient and the recommendations from GI that she be on ppi BID and sucralfate. We also informed her that she would no longer be receiving IV Hydromorphone for pain control. The patient then became very distraught, curled up in her bed and cried stating that she would rather than live with this pain. We discussed offering additional paintreatment modalities such as ketamine which she had received at a previous hospital visit. Review of Systems Respiratory: Negative for shortness of breath. Cardiovascular: Negative for leg swelling. Gastrointestinal: Positive for abdominal pain and constipation. Objective Physical Exam Constitutional: General: She is awake. Cardiovascular: Rate and Rhythm: Normal rate and regular rhythm. Heart sounds: Normal heart sounds. Pulmonary: Effort: Pulmonary effort is normal. Breath sounds: Normal breath sounds. Abdominal: General: Abdomen is flat. Comments: Patient with voluntary guarding of the epigastrium and LUQ. Bowel sounds present. Skin: Findings: Lesion present. Comments: There is a ~5sbj8uw annular lesion in the medial aspect of the right lower extremity. Thelesion is primarily erythematous ring with central clearing. Mild amount of scale present. Only onelesion is present, no satelite lesions. Psychiatric: Behavior: Behavior is cooperative. Last Recorded Vitals Blood pressure (!) 139/97, pulse (!) 123, temperature 36.7 ??C (98.1 ??F), resp. rate 14, height 1.651 m (5' 5 ), weight 91.3 kg (201 lb 4.5 oz), SpO2 98 %, not currently . Assessment/Plan Principal Problem: Chronic pancreatitis (CMS/HCC) # Acute on chronic epigastric pain Etiology: acute on chronic mild pancreatitis, erosive gastropathy w/ healing erosions -Reviewed CT Abd/Pelvis w/ contrast Pancreas protocol and revealed no evidence of acute pancreatitis or sequelae of chronic pancreatitis -GI performed Endoscopy on 04/18 which showed erosive gastropathy with multiple healing PLAN -Continue Lactated ringers 100 ml/hr -Stop IV hydromorphone -Continue oxycodone 15mg q4 hrs, Venlafaxine, Pregabalin -Continue IV Odansetron 4mg q6hrs (give prior to meals) -Continue PO Promethazine 25mg q6hrs PRN -Continue Creon -Continue hyocyamine 0.125mg TID -Advanced diet to Mechanical soft, GI, Low Fat, low fiber -Start Ketamine 10mg q8 hrs PRN consulted palliative care who saw patient on 2021 with previous recs ?? #Tinea corporis of right lower extremity -present for >1 years w/ failure of outpatient therapy -Continue Ketoconazole cream BID -Continue oral fluconazole 150mg once weekly x 6 weeks #Constipation, improved -Continue PEG + Senna +Bisacodyl suppository PRN -Patient had a BM on 04/17 following suppository #??Anxiety/bipolar - Continue patient's latuda and effexor # Fibromyalgia -continue Lyrica/Pregabalin ?? #??Polysubstance use -UDs + THC, Amphetamines, +fentanyl -THX - patient has history of marijuana use -Fentanyl - given in the ER -Patient denies amphetamine use, unclear if cross reactivity ?? Obesity Class 1 (BMI 30-34.9) Diet: Regular diet Ppx: Lovenox Cosigned by Abel Valdez MD at 04/18/2021 6:45 PM EST Associated attestation - Abel Valdez MD - 04/18/2021 6:45 PM EST I saw and evaluated the patient with the resident/fellow. I discussed the case with the resident/fellow and agree with the findings and plan as documented. 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 Interval events: Underwent EGD, which showed gastric erosions s/p biopsy . Also noted to have liquid food and some areas of solid food. S: Ms Gayle is very upset with me this afternoon. She tells me you hate me...you took away my dilaudid and left me with nothing. We explained to Ms Gayle that she is still on oxycodone 15mg q4h, but we have discontinued the IV dilaudid and will not restart it. She became even more tearful, and Ilet her converse with resident doctor, Dr Gonzáles. A/P: #Likely Mild acute pancreatitis on admission (resolved) - elevated lipase + epigastric pain, treated for 9 days but with persistent epigastric pain. #Recurrent, persistent epigastric pain - appreciate GI input - s/p EGD today, notable for gastric erosions, no overt ulcers - 40mg pantoprazole BID x 8 weeks - sucralfate 1g QID - will need to closely follow outpatient with GI if possibly her persistent pain is 2/2 to some functional or motility disorder - pt still on oxycodone 15mg q4h, will need to wean this prior to discharge - will not restart any IV opioid therapy - given difficulty with wean of opioids, ketamine gtt to assist * Progress Notes - Alyse Hernandez - 04/18/2021 11:56 AM EST Case Management Adult Progress Note Rosibel Gayle 35 y.o. female CSN: [id number] Admission: 04/10/2021 1:19 PM Primary Problem: Chronic pancreatitis (CMS/HCC) Anticipated Discharge Date: TBD Has Discharge Plans Changed? No Medicare Second Notice: Housing Circumstances: Low Income ( 101-300% Federal Poverty Guideline) Housing Circumstances Action Taken: N/A Additional Comments Per medical team, pt is not ready for discharge. There are no needs at this time. CM will continue to follow. Alyse Hernandez Cosigned by Suzi Shields at 04/18/2021 12:10 PM EST Associated attestation - Suzi Shields - 04/18/2021 12:10 PM EST Have read and approve this note. The pt continues to have a lot of pain and the medical team is working on getting her pain under control. The care team is unsure if the pain is actual or if the pt is having psychosomatic pain. Pt having an EGD on this date to assess if the pt has ulcers. * Pre-Procedure Note - Susan Tyler RN - 04/18/2021 10:51 AM EST Pt unable to give urine sample for HCG test. Pt stated she is not . Anesthesia notified. * H&P - Mohsen Alonzo MD - 04/18/2021 10:32 AM EST HPI: Mrs. Gayle is a 35 yo lady with PMH of bipolar disorder, fibromyalgia, recurrent acute pancreatitis, gastric and duodenal ulcers whom we are evaluating today for gastric wall thickening and abdominalpain. ROS: Negative except as per HPI Past Medical/Surgical History: reviewed Medications: Reviewed Anticoagulation: None FH of GI cancers: none Allergies: Allergies Allergen Reactions ??? Morphine And Related Other Hurts stomach ??? Tramadol Dizziness and Rash PHYSICAL EXAM: Visit Vitals BP (!) 135/93 (BP Location: Left arm) Pulse 96 Temp 36.6 ??C (97.8 ??F) (Oral) Ht 1.651 m (5' 5 ) Wt 91.3 kg (201 lb 4.5 oz) SpO2 100% BMI 33.49 kg/m?? Gen: Awake, alert, nad HEENT: NC/AT, Sclerae anicteric CV: RRR Pulm: Normal WOB Abd: soft, tender in LUQ/ epigastrium, non-distended. A/P: Proceed with EGD for further evaluation of abdominal pain Cosigned by Sharif Corcoran MD at 04/18/2021 10:35 AM EST Associated attestation - Sharif Corcoran MD - 04/18/2021 10:35 AM EST I saw and evaluated the patient with the resident/fellow. I discussed the case with the resident/fellow and agree with the findings and plan as documented. * Consults - Lida Morales RD - 04/18/2021 9:57 AM EST Adult Nutrition Evaluation Note Rosibel Gayle 35 y.o. female CSN: [id number] Room/Bed 729/729A Nutrition evaluation type: follow-up Hospital course: 35 y/o F admitted 04/10 with acute on chronic mild pancreatitis. Started on Creon. CT 04/16 improved gastric wall without evidence pf acute pancreatitis. GI following, s/p EGD 04/18. Past medical/ surgical history: Past Medical History: Diagnosis Date ??? Anxiety ??? Arthritis ??? Depression ??? Fibromyalgia ??? GERD (gastroesophageal reflux disease) ??? Hypertension ??? Nicotine dependence ??? Obesity ??? Pancreatitis Past Surgical History: Procedure Laterality Date ??? CHOLECYSTECTOMY ??? ERCP ??? ESOPHAGOGASTRODUODENOSCOPY ??? HAND SURGERY Additional comments: 04/18: pt was crying and curled up in a ball under sheets at time of international student counselor visit attempt. Pt told internal medicine nurse she could not talk right now. Vitals and Basic Assessment: BP: (!) 135/93 Temp: 36.6 ??C (97.8 ??F) Oxygen Therapy: None (Room air) [place] Coma Scale Score: 15 Scott Scale Score: 20 Last BM Date: 04/16/21 GI Symptoms: Nausea (abdominal pain) Skin: wound right pretibial, lower sternum, nose Allergies: no known food allergies Medications: acetaminophen, 1,000 mg, Oral, q6h INO bisacodyl, 10 mg, Rectal, Daily [Held by provider] enoxaparin, 40 mg, Subcutaneous, q24h INO fluconazole, 150 mg, Oral, Weekly hyoscyamine, 0.125 mg, Oral, TID lurasidone, 40 mg, Oral, Nightly pancrelipase (Icv-Nvxj-[id number]), 2 capsule, Oral, TID with meals pantoprazole, 40 mg, Oral, BID polyethylene glycol, 17 g, Oral, Daily pregabalin, 300 mg, Oral, BID senna, 17.2 mg, Oral, Nightly spironolactone, 12.5 mg, Oral, Daily venlafaxine XR, 150 mg, Oral, Daily with breakfast lactated Ringer's, 100 mL/hr, Last Rate: 100 mL/hr (04/17/212234) ocular lubricant, ondansetron, oxyCODONE, promethazine, [COMPLETED] Insert peripheral IV AND [COMPLETED] Saline lock IV AND sodium chloride Meds were reviewed: Yes Labs: Lab Results Component Value Date WBC 7.29 04/18/2021 HGB 11.8 04/18/2021 HCT 38.2 04/18/2021 MCV 87 04/18/2021 PLT 223 04/18/2021 Lab Results Component Value Date GLUCOSE 100 (H) 04/18/2021 CALCIUM 9.5 04/18/2021 NA 138 04/18/2021 K 4.2 04/18/2021 CO2 25 04/18/2021 CL 101 04/18/2021 BUN 4 (L) 04/18/2021 CREATININE 0.71 04/18/2021 Lab Results Component Value Date ALBUMIN 3.7 04/18/2021 Lab Results Component Value Date CALCIUM 9.5 04/18/2021 PHOS 3.1 03/24/2021 Lab Results Component Value Date ALT 33 04/18/2021 AST 37 (H) 04/18/2021 ALKPHOS 111 (H) 04/18/2021 BILITOT 0.2 04/18/2021 Anthropometrics: Admit Height (CM) 165.1cm Admit Weight (KG) 91.3 Current Weight (KG) 91.3 BMI 33.49 Weight Evaluation Obese Class 1 IBW (KG) 56.8 Percent IBW 161% Adjusted Weight (KG) 65.4kg Weight History Per EMR: Wt Readings from Last 10 Encounters: 04/10/21 91.3 kg (201 lb 4.5 oz) 03/23/21 95.7 kg (210 lb 15.7 oz) 02/04/21 102 kg (224 lb 3.3 oz) 12/04/20 95.3 kg (210 lb) 12/04/20 99.4 kg (219 lb 2.2 oz) 11/21/20 98 kg (216 lb 0.8 oz) 11/10/20 102 kg (225 lb 12 oz) 10/21/20 90.7 kg (200 lb) 10/18/20 90.7 kg (200 lb) 10/18/20 79.8 kg (176 lb) Additional Comments EMR reflects possible weight loss of ~10% x 2 months (severe if accurate) Weight fluctuations noted prior to most recent weight loss Estimated Needs: Provided Based On Weight Used Kcal/day 0226-5065 30-33 ABW Protein/day 78-92 1.2-1.4 ABW Fluid/day 1ml/kcal or per MD team Additional Comments Current Nutrition Intake: Current Diet Order [facility] soft +low fat + GI low fiber Avg PO Intakes per RN Flowsheets 25% x 12 meals Oral Nutrition Supplements Boost Plus TID (ordered twice) Diet EDU Provided Will monitor need throughout LOS Yarsanism/ Cultural Needs Ethnic needs not identified at this time Additional Comments Nutrition Focused Physical Exam: Physical exam performed on (date): 04/12 Temples (muscles): None Clavicle (muscle): None Shoulder (muscle): None Interosseous (muscle): None Thigh (muscle): None Calf (muscle): None Orbital (fat): None Triceps (fat): None Assessment of Malnutrition: Present on Admission: No 04/12: EMR does reflect possible severe weight loss x 2 months - pt reports a good appetite [employer], decreased since admission 2/2 illness. Will monitor. Nutrition Problem: Inadequate energy intake related to decreased appetite w/ nausea, chronic pancreatitis as evidencedby 0% x 2 PO intakes documented. --> 25% Status of Nutrition Diagnosis: Ongoing Nutrition Interventions and Recommendations: - Continue mech soft + low fat + GI low fiber - Continue Boost Plus TID to supplement PO intakes. Discontinuing second order as pt does not need Boost 6x/daily. - Rec MVI with mineral daily. - Rec obtaining weight 1x/week. Nutrition Monitoring and Goals: - Will monitor PO intake, weight status, lab results, GI tolerance, and skin integrity. - Pt will tolerate >75% avg of meal intakes. (not met, continue) - Pt will maintain weight this admission. (monitoring) Discharge Planning: RD to monitor for nutrition related discharge needs. Acuity Level: 2 Sanitation Director: July Lamas Primary RD: Lida Morales RD, LD * Consults - Sharon Bullard - 04/17/2021 8:58 PM EST Pastoral Care Note Brief follow-up visit of pastoral care to patient. Patient expressed gratitude but was on a phone call. Will attempt to follow up at a later time. Referral From: Nurse Pastoral Care Provided For: Patient Patient Profile: Consult Reasons: Follow up Spiritual Assessment: Support Systems/ Spiritual Resources: Lara,Family Spiritual Needs: Emotional support,Spiritual support Spiritual Issues: Chronic pain/ illness Coping Skills: Fluctuating Interventions: Pastoral Care Outcomes: Patient Outcomes: Gratitude * Consults - Mohsen Alonzo MD - 04/17/2021 4:50 PM ESTAssociated Order(s): IP CONSULT TO GASTROENTEROLOGY Gastroenterology Consult Note Reason for Consult: HPI Mrs. Gayle is a 35 yo lady with PMH of bipolar disorder, fibromyalgia, recurrent acute pancreatitis, gastric and duodenal ulcers who presents with severe epigastric pain, for which we were consulted for further evaluation. She reports that she has had ongoing epsiodes of severe epigastric pain that started 3 yrs ago whenshe was told she had pancreatitis and have recurred frequently, requiring hospitalization for pain control. Over the last 6 months she has had increasing frequency of the episodes, with frequent hospital visits for pain and nausea control. She has had poor PO intake over this time. 2 days before admission this time, she again developed severe epigastric and LUQ abdominal pain, worse with any foodintake. No notable relieving factors. She does report significant ibuprofen use roughly 3200 mg/ day for the last few weeks due to worsening pain . She denies hematemesis, melena, hematochezia. When seen today she was quite upset that her opioids were being dialed back. She has tried bentyl which has not helped her pain. She has been PO PPI once daily at home but does not seem to be taking it appropriately 30 mins before meals. OA here lipase was 232, other labs normal. CT A/P 04/16 showing gastric wall thickening, imrpoved from prior. 03/22/21 CT AP with Distal stomach wall thickening with subthreshold fluid filled dilation of the proximal small bowel. 09/2020 she had an EGD revealing gastric and duodenal ulcers. 11/13- normal EGD, 11/2020- EUS to evaluate her recurrent pain with some stranding in the pancreatic parenchyma but no other signs of chronic pancreatitis. ERCP with no stones or narrowing, good flow. Prior sphincterotomy seen. ROS 14 point ROS completed and negative except as above. Past Medical History: Diagnosis Date ??? Anxiety ??? Arthritis ??? Depression ??? Fibromyalgia ??? GERD (gastroesophageal reflux disease) ??? Hypertension ??? Nicotine dependence ??? Obesity ??? Pancreatitis Past Surgical History: Procedure Laterality Date ??? CHOLECYSTECTOMY ??? ERCP ??? ESOPHAGOGASTRODUODENOSCOPY ??? HAND SURGERY Family History Problem Relation Name Age of Onset ??? Hypertension Mother ??? No Known Problems Father Social History Tobacco Use ??? Smoking status: Current Every Day Smoker Packs/day: 0.50 Years: 15.00 Pack years: 7.50 Types: Cigarettes ??? Smokeless tobacco: Never Used Vaping Use ??? Vaping Use: Never used Substance Use Topics ??? Alcohol use: Not Currently Comment: Alcoholic Drinks/day: Minimum alcohol consumption ??? Drug use: Not Currently Frequency: 4.0 times per week Comment: daily use Objective Vitals: 04/16/21 0747 04/16/21 1928 04/16/21 1942 04/17/21 0738 BP: (!) 137/94 (!) 138/96 (!) 136/94 Pulse: 89 109 80 Resp: 18 16 Temp: 36.9 ??C (98.4 ??F) 36.9 ??C (98.5 ??F) 36.4 ??C (97.5 ??F) TempSrc: SpO2: 100% 100% 98% Weight: Height: BMI: Body mass index is 33.49 kg/m??. Physical Exam: General Well appearing, frustrated Eyes EOMI Head NC/AT ENT OP moist. Hearing grossly normal. CV RRR, S1 + S2. RES Non-labored breathing GI Soft. Tender in epigastrium and LUQ. No hernias appreciated.No peritoneal signs FANI AAOx4. EXT No cyanosis. No edema Skin Rash on hands and face, warm and dry PSY Normal mood and affect I/O: I/O last 3 completed shifts: In: 924 (10.1 mL/kg) [P.O.:924] Out: - (0 mL/kg) Weight: 91.3 kg I/O this shift: In: 720 [P.O.:720] Out: - Labs: CBC: Results from last 7 days Lab Units 04/16/21 0455 WBC 10*3/uL 4.44 HEMOGLOBIN g/dL 11.7 HEMATOCRIT % 37.4 PLATELETS 10*3/uL 236 CMP: Results from last 7 days Lab Units 04/17/21 0418 04/16/21 0454 04/13/21 0249 SODIUM mmol/L 142 141 140 POTASSIUM mmol/L 3.9 4.0 4.2 CHLORIDE mmol/L 100 102 102 CO2 mmol/L 30* 29 28 BUN mg/dL <3* 4* 6* CREATININE mg/dL 0.72 0.74 0.66 CALCIUM mg/dL 9.7 9.7 9.4 BILIRUBIN TOTAL mg/dL -- 0.2 -- ALKALINE PHOSPHATASE U/L -- 97 -- ALT U/L -- 14 -- AST U/L -- 15 -- GLUCOSE mg/dL 100* 81 99 Microbiology/Abx: Results Procedure Component Value Units Date/Time Helicobacter pylori Antigen [[id number]] Order Status: Sent Specimen: Stool from Rectum Imaging: as above Medications (scheduled): acetaminophen, 1,000 mg, Oral, q6h INO bisacodyl, 10 mg, Rectal, Daily enoxaparin, 40 mg, Subcutaneous, q24h INO fluconazole, 150 mg, Oral, Weekly hyoscyamine, 0.125 mg, Oral, TID lurasidone, 40 mg, Oral, Nightly pancrelipase (Byl-Omhb-Eafm), 2 capsule, Oral, TID with meals pantoprazole, 40 mg, Oral, Daily before breakfast polyethylene glycol, 17 g, Oral, Daily pregabalin, 300 mg, Oral, BID senna, 17.2 mg, Oral, Nightly venlafaxine XR, 150 mg, Oral, Daily with breakfast Medications (continous): lactated Ringer's, 100 mL/hr, Last Rate: 100 mL/hr (04/16/21 2306) Medications (PRN): HYDROmorphone, ocular lubricant, ondansetron, oxyCODONE, promethazine, [COMPLETED] Insert peripheral IV AND [COMPLETED] Saline lock IV AND sodium chloride Assessment and Plan Mrs. Gayle is a 35 yo lady with PMH of bipolar disorder, fibromyalgia, recurrent acute pancreatitis, gastric and duodenal ulcers who presents with severe epigastric pain, for which we were consulted for further evaluation. 1. Epigastric pain 2. Prior hx of gastric and duodenal ulcers 3. Prior episodes of acute biliary pancreatitis, s/p CCY 4. Bipolar disorder 5. Diffuse rash 6. Gastric wall thickening - OA lipase = 232, CBC, CMP normal - CT with gastric wall thickening and prox SB dilation, with improvement from end feb to mid mar - hx of recent excessive NSAID use 3200 mg/ day of ibuprofen x 4 weeks due to abdominal pain - had had prior evaluation for SOD, s/p sphincterotomy - EGD 09/2020 with gastric and duodenal ulcers. - path with erosive gastropathy negative for Hpylori - bentyl and bowel regimen have not helped with the pain and even dilaudid doesn't completley relieve the pain Ddx: Ulcer disease, gastritis, malignancy, other PLAN: - please keep NPO at midnight - will plan for EGD tomorrow for furhter evalaution - please add GI cocktail Q6 hours - please increase PPI to 40 mg BID - can add on sucralfate after procedure Staffed w/ attending: Dr. Canchola Thank you for allowing us to participate in this patient's care. Please do not hesitate to call or page with questions or concerns. Mohsen Alonzo MD PGY-5 Gastroenterology Fellow [facility] Pager: [phone] Cosigned by Alondra Canchola MD at 04/18/2021 11:42 AM EST Associated attestation - Alondra Canchola MD - 04/18/2021 11:42 AM EST I saw and evaluated the patient with the resident/fellow. I discussed the case with the resident/fellow and agree with the findings and plan as documented. * Progress Notes - Homeor Gonzáles MD - 04/17/2021 1:43 PM EST Subjective Ms. Gayle reports she was able to tolerate eating biscuits and gravy this morning. She reports a history of Bipolar disorder, depression and has been on lurasidone, venlafaxine for years. She had a BM yesterday after administration of a bisacodyl suppository. Review of Systems Respiratory: Negative for shortness of breath. Cardiovascular: Negative for leg swelling. Gastrointestinal: Positive for abdominal pain and constipation. Objective Physical Exam Constitutional: General: She is awake. Cardiovascular: Rate and Rhythm: Normal rate and regular rhythm. Heart sounds: Normal heart sounds. Pulmonary: Effort: Pulmonary effort is normal. Breath sounds: Normal breath sounds. Abdominal: General: Abdomen is flat. Comments: Patient with voluntary guarding of the epigastrium and LUQ. Bowel sounds present. Skin: Findings: Lesion present. Comments: There is a ~[id number] annular lesion in the medial aspect of the right lower extremity. Thelesion is primarily erythematous ring with central clearing. Mild amount of scale present. Only onelesion is present, no satelite lesions. Psychiatric: Behavior: Behavior is cooperative. Last Recorded Vitals Blood pressure (!) 136/94, pulse 80, temperature 36.4 ??C (97.5 ??F), resp. rate 16, height 1.651 m(5' 5 ), weight 91.3 kg (201 lb 4.5 oz), SpO2 98 %, not currently . Assessment/Plan Principal Problem: Chronic pancreatitis (CMS/HCC) # Acute on chronic epigastric pain Suspected Acute on chronic mild pancreatitis PLAN -Continue Lactated ringers 100 ml/hr -Continue oxycodone 15mg q4 hrs -Continue Hydromorphone 1mg q4hrs -STOP IV pain medication tomorrow -Continue IV Odansetron 4mg q6hrs (give prior to meals) -Continue PO Promethazine 25mg q6hrs PRN -Continue Creon -Continue hyocyamine 0.125mg TID -Advanced diet to Mechanical soft, GI, Low Fat, low fiber -Reviewed CT Abd/Pelvis w/ contrast Pancreas protocol and revealed no evidence of acute pancreatitis or sequelae of chronic pancreatitis -Consult GI given patient having prolonged symptoms with normal imaging and patient has a history of choledocholithiasis requiring ERCP. -Fecal elastase pending ?? #Tinea corporis of right lower extremity -present for >1 years w/ failure of outpatient therapy -Continue Ketoconazole cream BID -Continue oral fluconazole 150mg once weekly x 6 weeks #Constipation, improved -Continue PEG + Senna +Bisacodyl suppository PRN -Patient had a BM on 04/17 following suppository #??Anxiety/bipolar - Continue patient's latuda and effexor # Fibromyalgia -continue Lyrica/Pregabalin ?? #??Polysubstance use -UDs + THC, Amphetamines, +fentanyl -THX - patient has history of marijuana use -Fentanyl - given in the ER -Patient denies amphetamine use, unclear if cross reactivity ?? Obesity Class 1 (BMI 30-34.9) Diet: Regular diet Ppx: Lovenox Cosigned by Abel Valdez MD at 04/17/2021 6:52 PM EST Associated attestation - Abel Valdez MD - 04/17/2021 6:52 PM EST I saw and evaluated the patient with the resident/fellow. I discussed the case with the resident/fellow and agree with the findings and plan as documented. 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 S: Pt was able to eat this AM, had biscuits and gravy. Her mother is present in the room. Ms Gayle is worried about the persistent abdominal pain and feels she cannot tolerate having the IV dilaudid taken off right now. We had a long discussion regarding potential issues of what might be going on, and need for GI input given persistence of sxs for over 8 days now and no evidence of acute pancreatitis. Pt potentially presented with mild acute pancreatitis, but given persistent pain, likely some otherpathology including duodenal ulcers given heavy NSAID use. Also on the differential is functional pain. Given reports of nausea/vomiting, marijuana induced hyperemesis also on ddx #Recurrent epigastric pain #Poor oral intake - ddx as above, will consult GI to give input and potential endoscopy to rule out recurrent ulcer or other pathology - if endoscopy nonrevealing, this is likely functional abdominal pain but as noted above, this willbe a diagnosis of exclusion. If GI decides against endoscopy, will send H pylori stool antigen to assess for potential H pylori in setting of NSAID use, however pt has had a negative H.pylori stain from biopsy 10/22/20 - pt declined bentyl, reports it does not work - discussed with Ms Gayle that we will stop IV dilaudid 04/18 - follow-up GI recs #?Chronic pancreatitis #? Exocrine insufficiency - pt reports she has been told she has chronic pancreatitis and exocrine insufficiency requiring Creon, but imaging findings here including prior MRCP, EUS not entirely consistent with chronic pancreatitis (although some stranding around pancreas noted on EUS 11/2020). Plan - fecal elastase to evaluate for exocrine insufficiency #LE wound - will continue to monitor, does not have the appearance of a pyoderma gangrenosum, but will watch for evolving * Progress Notes - Alyse Hernandez - 04/16/2021 11:05 AM EST Case Management Adult Progress Note Rosibel Gayle 35 y.o. female CSN: [id number] Admission: 04/10/2021 1:19 PM Primary Problem: Chronic pancreatitis (CMS/HCC) Anticipated Discharge Date: TBD Has Discharge Plans Changed? No Medicare Second Notice: Housing Circumstances: Low Income ( 101-300% Federal Poverty Guideline) Housing Circumstances Action Taken: N/A Additional Comments Per medical team, pt is not ready for discharge. Pt has no needs currently. CM will continue to follow. Alyse Hernandez Cosigned by Suzi Shields at 04/16/2021 11:41 AM EST Associated attestation - Suzi Shields - 04/16/2021 11:41 AM EST Have read and approve this note. The medical team is continuing to work on the pt getting her pain under control. Team is hopeful that the pt will discharge within the next couple of days. * Progress Notes - Homero Gonzáles MD - 04/16/2021 8:33 AM EST Subjective Ms. Florence reports she has not been able to tolerate any food including the clear liquid diet. She continues to complain of abdominal pain radiating to her back. She asks to increase frequency of IV hydromorphone. She is agreeable to trying a suppository for constipation. Last BM ~3 days ago. Review of Systems Respiratory: Negative for shortness of breath. Cardiovascular: Negative for leg swelling. Gastrointestinal: Positive for abdominal pain and constipation. Objective Physical Exam Constitutional: General: She is awake. Cardiovascular: Rate and Rhythm: Normal rate and regular rhythm. Heart sounds: Normal heart sounds. Pulmonary: Effort: Pulmonary effort is normal. Breath sounds: Normal breath sounds. Abdominal: General: Abdomen is flat. Comments: Patient with voluntary guarding of the epigastrium and LUQ. Bowel sounds present. Skin: Findings: Lesion present. Comments: There is a ~[id number] annular lesion in the medial aspect of the right lower extremity. Thelesion is primarily erythematous ring with central clearing. Mild amount of scale present. Only onelesion is present, no satelite lesions. Psychiatric: Behavior: Behavior is cooperative. Last Recorded Vitals Blood pressure (!) 137/94, pulse 89, temperature 36.9 ??C (98.4 ??F), resp. rate 18, height 1.651 m(5' 5 ), weight 91.3 kg (201 lb 4.5 oz), SpO2 100 %, not currently . Assessment/Plan Principal Problem: Chronic pancreatitis (CMS/HCC) # Acute on chronic mild pancreatitis - Stable PLAN -Continue Lactated ringers 100 ml/hr -Continue oxycodone 15mg q4 hrs -Continue Hydromorphone 1mg q4hrs -Continue IV Odansetron 4mg q6hrs (give prior to meals) -Continue PO Promethazine 25mg q6hrs PRN -Continue Creon -CLD and will advance as tolerated. May try full liquids today, low fiber diet -Add hyocyamine 0.125mg TID -If no improvement in 24 hours, will re-image pancreas with CT Abd/Pelvis w/ IV contrast ?? #Tinea corporis of right lower extremity -Start Ketoconazole cream BID -present for >1 years -Will start oral fluconazole 150mg once weekly x 6 weeks #Constipation -Continue PEG + Senna -Add Bisacodyl suppository today #??Anxiety/bipolar - Continue patient's latuda and effexor # Fibromyalgia -continue Lyrica/Pregabalin ?? #??Polysubstance use -UDs + THC, Amphetamines, +fentanyl -THX - patient has history of marijuana use -Fentanyl - given in the ER -Patient denies amphetamine use, unclear if cross reactivity ?? Obesity Class 1 (BMI 30-34.9) Diet: Regular diet Ppx: Lovenox Cosigned by Abel Valdez MD at 04/16/2021 5:34 PM EST Associated attestation - Abel Valdez MD - 04/16/2021 5:34 PM EST I saw and evaluated the patient with the resident/fellow. I discussed the case with the resident/fellow and agree with the findings and plan as documented. I assumed care from Dr. Faust, today. 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 S: Ms Gayle continues to report severe abd pain, asking us to increase her IV dilaudid to every 2 hours. She reports that her pain is worse. She is not eating anything. Notes no bowel movement for 3 days. O: Laying in bed, not in any acute distress. RRR, CTA anteriorly. Unable to examine abdomen as pt notes extreme pain. Right leg with erythematous circular lesion with some central clearing. No satellite lesions noted. PResent for over a year per patient Labwork from admission 04/10 reviewed: 04/10:Lipase 232 U/L (upper limit of normal 63), WBC 8.79, Hgb 13.4, Plts 356K, Ca 9.3, ALP 115 ([id number]), AST/ALT WNL 04/16: LFTs WNL, Ca 9.7, WBC 4.44K #Mild acute pancreatitis #Recurrent abdominal pain > given the epigastric pain and the elevated lipase, pt clinically appears to have acute pancreatitis on admission. However, patient with persistent pain even with appropriate management for what appears to be a mild pancreatitis (no signs of organ dysfunction etc), as a result we will image with CT A/P pancreatic protocol. Concern that there is a component of functional abdominal pain superimposed. Patient has been previously seen by GI in clinic with concern for a functional component. Given previous imaging, there is no sign that patient has evidence of chronic pancreatitis. - LR at 200cc/hr for now - diet as tolerated, low fiber - CT A/P with IV contrast, pancreas protocol - hyoscyamine 0.125mg TID for possible functional component to pain - bisacodyl suuppository + miralax, senna for constipation #? Bipolar vs Depression/Anxiety - unclear if diagnosis of bipolar given pt is on venlafaxine -lurasidone 40mg nightly #? Erythematous leg lesion - does not look entirely like tinea, but will treat empirically for now - given length of time, will attempt oral fluconazole therapy * Progress Notes - Homero Gonzáles MD - 04/15/2021 1:51 PM EST Subjective Patient continues to only tolerate some clear liquid diet. She complains of abdominal pain, epigastric, radiating to her back. She has not had a BM in ~3 days normally has 1 every other day at home. She has a large skin rash on her right ankle which she has been treated for ringworm as an outpatient with creams. Review of Systems Respiratory: Negative for shortness of breath. Cardiovascular: Negative for leg swelling. Gastrointestinal: Positive for abdominal pain and constipation. Objective Physical Exam Constitutional: General: She is awake. Cardiovascular: Rate and Rhythm: Normal rate and regular rhythm. Heart sounds: Normal heart sounds. Pulmonary: Effort: Pulmonary effort is normal. Breath sounds: Normal breath sounds. Abdominal: General: Abdomen is flat. Comments: Patient with voluntary guarding of the epigastrium and LUQ. Bowel sounds present. Skin: Findings: Lesion present. Comments: There is a ~[id number] annular lesion in the medial aspect of the right lower extremity. Thelesion is primarily erythematous ring with central clearing. Mild amount of scale present. Only onelesion is present, no satelite lesions. Psychiatric: Behavior: Behavior is cooperative. Last Recorded Vitals Blood pressure 113/77, pulse 83, temperature 36.6 ??C (97.8 ??F), resp. rate 18, height 1.651 m (5'5 ), weight 91.3 kg (201 lb 4.5 oz), SpO2 97 %, not currently . Assessment/Plan Principal Problem: Chronic pancreatitis (CMS/HCC) # Acute on chronic mild pancreatitis - continues to have pain today PLAN - plan to continue IV fluids - LR?? -??continue oxycodone q4h today given breakthrough pain - continue nausea control with ondansetron 4 mg q 6 hr prn and promethazine 12.5 mg??PO??prn - Continue patient's home lyrica -??clear liquids today, will continue to advance as tolerated, continue Creon ?? #Tinea corporis of right lower extremity -Start Ketoconazole cream BID #??Anxiety/bipolar - Continue patient's latuda and effexor # Fibromyalgia -continue Lyrica/Pregabalin ?? #??Polysubstance use -UDs + THC, Amphetamines, +fentanyl -THX - patient has history of marijuana use -Fentanyl - given in the ER -Patient denies amphetamine use, unclear if cross reactivity ?? Obesity Class 1 (BMI 30-34.9) Diet: CLD Ppx: Lovenox Cosigned by Trevon Faust MD at 04/15/2021 4:39 PM EST Associated attestation - Trevon Faust MD - 04/15/2021 4:39 PM EST I saw and evaluated the patient with the resident/fellow. I discussed the case with the resident/fellow and agree with the findings and plan as documented. * Progress Notes - Claudio Britton MD - 04/14/2021 11:43 AM EST Subjective No acute events overnight. Patient reports that her pain is still worse, same as yesterday in the epigastrium and LUQ. She reports that it feels that she is being stabbed repeatedly in that area. Review of Systems Negative except for the information in the HPI. Objective Physical Exam Constitutional: General: She is awake. Cardiovascular: Rate and Rhythm: Normal rate and regular rhythm. Heart sounds: Normal heart sounds. Pulmonary: Effort: Pulmonary effort is normal. Breath sounds: Normal breath sounds. Abdominal: General: Abdomen is flat. Comments: Patient with voluntary guarding of the epigastrium and LUQ. Bowel sounds present. Psychiatric: Behavior: Behavior is cooperative. Last Recorded Vitals Blood pressure (!) 159/98, pulse 67, temperature 36.6 ??C (97.9 ??F), resp. rate 18, height 1.651 m(5' 5 ), weight 91.3 kg (201 lb 4.5 oz), SpO2 100 %, not currently . Assessment/Plan Principal Problem: Chronic pancreatitis (CMS/[facility]) # Acute on chronic mild pancreatitis - continues to have pain today PLAN - plan to continue IV fluids - LR?? -??continue oxycodone q4h today given breakthrough pain - continue nausea control with ondansetron 4 mg q 6 hr prn and promethazine 12.5 mg??PO??prn - Continue patient's home lyrica -??clear liquids today, will continue to advance as tolerated, continue Creon ?? #??Anxiety/bipolar - Continue patient's latuda and effexor ?? #??Polysubstance use -UDs + THC, Amphetamines, +fentanyl -THX - patient has history of marijuana use -Fentanyl - given in the ER -Patient denies amphetamine use, unclear if cross reactivity ?? Obesity Class 1 (BMI 30-34.9) Electronically Signed by: Claudio Britton MD - 04/14/2021 - 11:50 AM Cosigned by Trevon Faust MD at 04/14/2021 2:17 PM EST Associated attestation - Trevon Faust MD - 04/14/2021 2:17 PM EST I saw and evaluated the patient with the resident/fellow. I discussed the case with the resident/fellow and agree with the findings and plan as documented. * Consults - Napoleon Pascal - 04/13/2021 2:10 PM EST Pastoral Care Note Offered pastoral care and support to patient. Engaged in active listening. Patient said she has support from her family and lara. Provided pastoral presence. Referral From: Claim Approver initiated Pastoral Care Provided For: Patient Patient Profile: Consult Reasons: Initial visit Spiritual Assessment: Support Systems/ Spiritual Resources: Lara,Family,Meaningful spiritual experience Spiritual Needs: Emotional support Spiritual Issues: Chronic pain/ illness Coping Skills: Fluctuating Interventions: Interventions Provided: Emotional support Pastoral Care Outcomes: Patient Outcomes: Is knowledgeable about Family Nurse Practitioner Services * Progress Notes - Trevon Faust MD - 04/13/2021 10:45 AM EST Subjective Ms Gayle reports continued pain today. She tried eating a bagel yesterday. Her pain remains localized to the epigastrium and left upper quadrant. She is reporting breakthrough episodes of pain between her available doses of pain medication. Review of Systems Constitutional: Negative for chills and fever. Gastrointestinal: Positive for abdominal pain, constipation and nausea. Objective Physical Exam Constitutional: Comments: Appears uncomfortable, but non toxic Cardiovascular: Rate and Rhythm: Normal rate and regular rhythm. Pulmonary: Breath sounds: Normal breath sounds. Abdominal: General: There is distension. Tenderness: There is abdominal tenderness. There is no guarding or rebound. Neurological: Mental Status: She is alert and oriented to person, place, and time. Last Recorded Vitals Blood pressure 140/86, pulse 99, temperature 36.5 ??C (97.7 ??F), resp. rate 18, height 1.651 m (5'5 ), weight 91.3 kg (201 lb 4.5 oz), SpO2 98 %, not currently . Assessment/Plan Principal Problem: Chronic pancreatitis (CMS/HCC) # Acute on chronic mild pancreatitis - continues to have pain today PLAN - plan to continue IV fluids - LR - increase frequency of oxycodone to q4h today given breakthrough pain - continue nausea control with ondansetron 4 mg q 6 hr prn and promethazine 12.5 mg PO prn - Continue patient's home lyrica - clear liquids today only, continue Creon # Anxiety/bipolar - Continue patient's latuda and effexor # Polysubstance use -UDs + THC, Amphetamines, +fentanyl -THX - patient has history of marijuana use -Fentanyl - given in the ER -Patient denies amphetamine use, unclear if cross reactivity Obesity Class 1 (BMI 30-34.9) * Progress Notes - Homero Gonzáles MD - 04/12/2021 8:20 AM EST Subjective NAEO. States that her epigastric and LUQ pain has improved with pain medications. Occassionally hasstabbing LUQ pain but is manageable. Otherwise, patient denies fever, n/v, SOB, chest pain, or palpitations. Review of Systems Constitutional: Negative for fever. Respiratory: Negative for chest tightness and shortness of breath. Cardiovascular: Negative for chest pain. Gastrointestinal: Negative for nausea. + for slight abdominal tenderness. Objective Physical Exam Constitutional: Appearance: Normal appearance. HENT: Head: Normocephalic and atraumatic. Eyes: Extraocular Movements: Extraocular movements intact. Conjunctiva/sclera: Conjunctivae normal. Cardiovascular: Rate and Rhythm: Normal rate and regular rhythm. Pulses: Normal pulses. Heart sounds: Normal heart sounds. Pulmonary: Effort: Pulmonary effort is normal. Breath sounds: Normal breath sounds. Abdominal: General: Bowel sounds are normal. Tenderness: There is abdominal tenderness in the epigastric area and left upper quadrant. Musculoskeletal: General: Normal range of motion. Neurological: Mental Status: She is alert and oriented to person, place, and time. Psychiatric: Mood and Affect: Mood normal. Behavior: Behavior normal. Thought Content: Thought content normal. Judgment: Judgment normal. Last Recorded Vitals Blood pressure 132/83, pulse 78, temperature 36.5 ??C (97.7 ??F), resp. rate 18, height 1.651 m (5'5 ), weight 91.3 kg (201 lb 4.5 oz), SpO2 96 %, not currently . Assessment/Plan Principal Problem: Chronic pancreatitis (CMS/HCC) # Acute on chronic mild pancreatitis - Patient follows with GI as an outpatient - Patient has had multiple CT scans over the past year. Bilirubin is normal, do not believe patientis obstructed at this time will hold off on consulting GI. PLAN - LR 200 mL/hr, will decrease/stop as patient tolerates more PO intake - Decreased pain regimen: Oxycodone 15mg q6 hours PRN for pain control + IV dilaudid 0.5 mg q4 PRN for severe pain - nausea control with ondansetron 4 mg q 6 hr prn and promethazine 12.5 mg PO prn - Continue patient's home lyrica - Started Creon 36855 units 3x daily w/ meals - Advanced diet to Adult Regular # Anxiety/bipolar - Continue patient's latuda and effexor ?? # Polysubstance use -UDs + THC, Amphetamines, +fentanyl -THX - patient has history of marijuana use -Fentanyl - given in the ER -Patient denies amphetamine use, unclear if cross reactivity F: LR 200 ml/hr E: No need to monitor N: Regular Diet - Ana Cristina Motley, MS3 I saw and evaluated the patient. I discussed the case with the medical student and agree with the findings and plan as documented. I personally participated in the management of the patient. I have edited the physical exam based on my findings and participated in medical decision making. Electronically Signed by: Homero Gonzáles MD - 04/12/2021 - 10:42 AM Cosigned by Trevon Faust MD at 04/13/2021 10:44 AM EST Associated attestation - Trevon Faust MD - 04/13/2021 10:44 AM EST I saw and evaluated the patient with the resident/fellow. I discussed the case with the resident/fellow and agree with the findings and plan as documented. * Consults - Lida Morales RD - 04/12/2021 7:47 AM EST Adult Nutrition Evaluation Note Rosibel Gayle 35 y.o. female CSN: [id number] Room/Bed 729/729A Nutrition evaluation type: screen Reason for evaluation: NPO/CLD Hospital course: 35 y/o F admitted 04/10 with acute on chronic mild pancreatitis. Started on Creon. Past medical/ surgical history: Past Medical History: Diagnosis Date ??? Anxiety ??? Arthritis ??? Depression ??? Fibromyalgia ??? GERD (gastroesophageal reflux disease) ??? Hypertension ??? Nicotine dependence ??? Obesity ??? Pancreatitis Past Surgical History: Procedure Laterality Date ??? CHOLECYSTECTOMY ??? ERCP ??? ESOPHAGOGASTRODUODENOSCOPY ??? HAND SURGERY Additional comments: 04/12: international student counselor visited pt who denies chewing/swallowing problems. Pt endorses diarrhea, nausea, vomiting x 3 days. Pt endorses normal appetite [employer] and had some decreased appetite since admission d/t chronic illness but pt states it is getting better. Pt states she she has not received her nutrition supplements and prefers chocolate when she does get it. Pt states a UBW ~200# and has lost 40# in the last couple months, stating pt notices weight fluctuations when she has pancreatitis flares. Current facility weight is ~201#. Pt states she was ordered a regular diet today and ate a bagel and felt somewhat nauseous after. Pt states she usually gets medication to alleviate nausea prior tomeals but hasn't received it yet this admission. Pt denies any food allergies. Vitals and Basic Assessment: BP: 119/87 Temp: 36.8 ??C (98.2 ??F) Oxygen Therapy: None (Room air) Jo Coma Scale Score: 15 Scott Scale Score: 20 Last BM Date: 04/12/21 GI Symptoms: Nausea,Other (Comment) (Loose stool) Skin: wound right pretibial, lower sternum, nose Allergies: no known food allergies Medications: acetaminophen, 1,000 mg, Oral, q6h INO enoxaparin, 40 mg, Subcutaneous, q24h INO lurasidone, 40 mg, Oral, Nightly pancrelipase ([id number]), 2 capsule, Oral, TID with meals pantoprazole, 40 mg, Oral, Daily before breakfast pregabalin, 300 mg, Oral, BID venlafaxine XR, 150 mg, Oral, Daily with breakfast lactated Ringer's, 200 mL/hr, Last Rate: 200 mL/hr (04/11/21 1648) HYDROmorphone, ondansetron, oxyCODONE, promethazine, [COMPLETED] Insert peripheral IV AND [COMPLETED] Saline lock IV AND sodium chloride Meds were reviewed: Yes Labs: Lab Results Component Value Date WBC 8.79 04/10/2021 HGB 13.4 04/10/2021 HCT 41.8 04/10/2021 MCV 84 04/10/2021 PLT 356 04/10/2021 Lab Results Component Value Date GLUCOSE 98 04/10/2021 CALCIUM 9.3 04/10/2021 NA 140 04/10/2021 K 4.3 04/10/2021 CO2 22 04/10/2021 CL 104 04/10/2021 BUN 8 04/10/2021 CREATININE 0.65 04/10/2021 Lab Results Component Value Date ALBUMIN 4.3 04/10/2021 Lab Results Component Value Date CALCIUM 9.3 04/10/2021 PHOS 3.1 03/24/2021 Lab Results Component Value Date ALT 19 04/10/2021 AST 19 04/10/2021 ALKPHOS 115 (H) 04/10/2021 BILITOT 0.2 04/10/2021 lipase: 232 Anthropometrics: Admit Height (CM) 165.1cm Admit Weight (KG) 91.3 Current Weight (KG) 91.3 BMI 33.49 Weight Evaluation Obese Class 1 IBW (KG) 56.8 Percent IBW 161% Adjusted Weight (KG) 65.4kg Weight History Per EMR: Wt Readings from Last 10 Encounters: 04/10/21 91.3 kg (201 lb 4.5 oz) 03/23/21 95.7 kg (210 lb 15.7 oz) 02/04/21 102 kg (224 lb 3.3 oz) 12/04/20 95.3 kg (210 lb) 12/04/20 99.4 kg (219 lb 2.2 oz) 11/21/20 98 kg (216 lb 0.8 oz) 11/10/20 102 kg (225 lb 12 oz) 10/21/20 90.7 kg (200 lb) 10/18/20 90.7 kg (200 lb) 10/18/20 79.8 kg (176 lb) Additional Comments EMR reflects possible weight loss of ~10% x 2 months (severe if accurate) Weight fluctuations noted prior to most recent weight loss Estimated Needs: Provided Based On Weight Used Kcal/day 0790-3749 30-33 ABW Protein/day 78-92 1.2-1.4 ABW Fluid/day 1ml/kcal or per MD team Additional Comments Current Nutrition Intake: Current Diet Order Regular Avg PO Intakes per RN Flowsheets 0% x 2 meals Oral Nutrition Supplements Boost Plus TID, Magic Cup TID Diet EDU Provided Will monitor need throughout LOS Yarsanism/ Cultural Needs Ethnic needs not identified at this time Additional Comments Nutrition Focused Physical Exam: Physical exam performed on (date): 04/12 Temples (muscles): None Clavicle (muscle): None Shoulder (muscle): None Interosseous (muscle): None Thigh (muscle): None Calf (muscle): None Orbital (fat): None Triceps (fat): None Assessment of Malnutrition: Present on Admission: No 04/12: EMR does reflect possible severe weight loss x 2 months - pt reports a good appetite [employer], decreased since admission /2 illness. Will monitor. Nutrition Problem: Inadequate energy intake related to decreased appetite w/ nausea, chronic pancreatitis as evidencedby 0% x 2 PO intakes documented. Status of Nutrition Diagnosis: New Nutrition Interventions and Recommendations: - Adjusting to Low Fat diet 2/2 pancreatitis flare - Continue Boost Plus TID to supplement PO intakes, discontinuing Magic Cup TID. Will specify chocolate flavor per pt preference. - Rec MVI with mineral daily. - Rec obtaining weight 1x/week. Nutrition Monitoring and Goals: - Will monitor PO intake, weight status, lab results, GI tolerance, and skin integrity. - Pt will tolerate >75% avg of meal intakes. - Pt will maintain weight this admission. Discharge Planning: RD to monitor for nutrition related discharge needs. Acuity Level: 2 Sanitation Director: July Lamas Primary RD: Lida Morales RD, LD * Procedures - Citlali Umana RN - 04/11/2021 4:35 PM ESTAssociated Order(s): Insert peripheral IV Attached media from the original note were not included. Insert peripheral IV Date/Time: 04/11/2021 4:20 PM Performed by: Citlali Umana RN Authorized by: Trevon Faust MD [place] Protocol: Verbal consent obtained?: Yes Consent given by: Patient Patient states understanding of procedure being performed: Yes Required items: Required blood products, implants, devices and special equipment available Patient identity confirmed: Verbally with patient, provided demographic data, arm band and hospital-assigned identification number Time out: Immediately prior to the procedure a time out was called Hand hygiene: Hand hygiene performed prior to insertion Inserted using aseptic techniques: Yes Preparation: Skin prepped with alcohol and skin prepped with chg Orientation: Right and upper (cephalic vein) Location: Arm Catheter placed: Peripheral IV Catheter size: 20g/2.25 in AccuCath. Number of attempts: 1 IV flushes: Without difficulty and positive blood return noted and IV luer locked Patient tolerance: Patient tolerated the procedure well and there were no complications IV site covered with: Transparent semipermeable dressing Comments: Alcohol swab cap(s) applied. * Progress Notes - Suzi Shields - 04/11/2021 10:04 AM EST Case Management Adult Initial Progress Note Rosibel Gayle 35 y.o. female CSN: [id number] Admission: 04/10/2021 1:19 PM Primary Problem: Chronic pancreatitis (CMS/HCC) Curriculum Manager reviewed chart and spoke with patient to complete this Initial Case Management Assessment. PCP: Elmo Escobar MD Emergency Contact: Extended Emergency Contact Information Primary Emergency Contact: Asiya Flores Mobile Relation: Mother Insurance: Primary Visit Coverage Payer Plan Sponsor Code Group Number Group Name SAV MEDICAID SAV MEDICAID [id number] Primary Visit Coverage Subscriber Subscriber ID Subscriber Name Subscriber SSN Subscriber Address [id number] ROSIBEL GAYLE [id number] [address] [place] [address] Patient information: Daily Living Activities: Functional Status: Independent Living Arrangements: Parent/Gaurdian,Children Type of Residence: Private residence [address] [address] Smoker in the Home?: No Assistive Devices: none Income Information: Income Source: Unemployed Income/Expense Information: Income meets expenses Current Resources Utilized: Food [place] Housing Circumstances-Z Codes: Housing Circumstances (select all that apply): Low Income (101-300% Federal Poverty Guidlines) - Z596 Patient Referred to: Anticipated Discharge Date: 04/12/21 potentially Patient's Discharge Goal: Return home with symptom management Assistance Available at Discharge: Discharge Transport: Family Follow Up Transport: Family Home Health / Home Infusion / Outpatient Dialysis Services: None reported. DME: Assistive Devices: none Living Will/Advance Directive/Power of Grinder And Plater /Guardian: N/A Additional Comments: Per the medicine team, the pt isn't ready to discharge yet as she still is needing sympotom management. The pt was in a lot of pain when the SW met with her but they were working to get a new IV placed and then get further pain meds on board for control. Pt lives at home with her mother and children still and has no DME/HH needs at the present time. Pt has been fully COVID vaccinated as well. Suzi Shields * Progress Notes - Homero Gonzáles MD - 04/11/2021 9:03 AM EST Subjective NAEO. States that she is still having severe LUQ and epigastric pain. Describes the LUQ as sharp, stabbing pain that has not improved even with pain medications. Otherwise, patient denies fever, n/v, SOB, chest pain, or palpitations. Review of Systems Constitutional: Negative for fever. Respiratory: Negative for chest tightness and shortness of breath. Cardiovascular: Negative for chest pain. Gastrointestinal: Positive for abdominal pain. Negative for nausea. Objective Physical Exam Constitutional: Appearance: Normal appearance. HENT: Head: Normocephalic and atraumatic. Eyes: Extraocular Movements: Extraocular movements intact. Conjunctiva/sclera: Conjunctivae normal. Cardiovascular: Rate and Rhythm: Normal rate and regular rhythm. Pulses: Normal pulses. Heart sounds: Normal heart sounds. Pulmonary: Effort: Pulmonary effort is normal. Breath sounds: Normal breath sounds. Abdominal: General: Bowel sounds are normal. Tenderness: There is abdominal tenderness in the epigastric area and left upper quadrant. Musculoskeletal: General: Normal range of motion. Neurological: Mental Status: She is alert and oriented to person, place, and time. Psychiatric: Mood and Affect: Affect is tearful. Last Recorded Vitals Blood pressure 113/85, pulse 67, temperature 37.1 ??C (98.7 ??F), temperature source Oral, resp. rate 18, height 1.651 m (5' 5 ), weight 91.3 kg (201 lb 4.5 oz), SpO2 97 %, not currently . Assessment/Plan Principal Problem: Chronic pancreatitis (CMS/[facility]) # Acute on chronic mild pancreatitis - Patient follows with GI as an outpatient - Patient has had multiple CT scans over the past year. Bilirubin is normal, do not believe patientis obstructed at this time will hold off on consulting GI. PLAN - LR 200 mL/hr - Oxycodone 15mg q4 hours PRN for pain control + IV dilaudid for severe pain - nausea control with ondansetron 4 mg q 6 hr prn and promethazine 12.5 mg prn - Continue patient's home lyrica - order Creon with able to tolerate PO currently CLD ?? Anxiety/bipolar - Continue patient's latuda and effexor ?? Polysubstance use -UDs + THC, Amphetamines, +fentanyl -THX - patient has history of marijuana use -Fentanyl - given in the ER -Patient denies amphetamine use, unclear if cross reactivity F: LR 250/hr E: No need to monitor N: clear liquid ordered - Reshma Motley, MS3 I saw and evaluated the patient. I discussed the case with the medical student and agree with the findings and plan as documented. I personally participated in the management of the patient. I have edited the physical exam based on my findings and participated in medical decision making. Electronically Signed by: Homero Gonzáles MD - 04/11/2021 - 2:38 PM Cosigned by Trevon Faust MD at 04/11/2021 4:20 PM EST Associated attestation - Trevon Faust MD - 04/11/2021 4:20 PM EST I saw and evaluated the patient with the resident/fellow. I discussed the case with the resident/fellow and agree with the findings and plan as documented. * H&P - Claudio Britton MD - 04/10/2021 9:31 PM EST Images from the original note were not included. HOSPITAL MEDICINE HISTORY AND PHYSICAL History Of Present Illness Rosibel Gayle is a 35 y.o. female with chronic pancreatitis presumed to be secondary to prior heavy alcohol use (last drank heavily 7 years ago) presenting with two days of epigastric and LUQ abdominalpain, nausea, and decreased PO intake. Patient denies fevers and chills. The abdominal pain is sharp and radiates to back. No radiation to pelvis or chest, no dyspnea, no dysuria, no chest pain. Patient reports that pain has been constant. Bowel movements have been loose without blood. No emesis. Patient was found to have lipase of 232 and medicine was called for admission given continued nasuea, abdominal pain, and inability to tolerate PO after 2L fluid boluses and pain meds and antiemeticswere administered. Past Medical History She has a past medical history of Anxiety, Arthritis, Depression, Fibromyalgia, GERD (gastroesophageal reflux disease), Hypertension, Nicotine dependence, Obesity, and Pancreatitis.She has no past medical history of Adverse effect of anesthesia, Asthma, Awareness under anesthesia, Cancer ([facility]),CHF (congestive heart failure) ([facility]), COPD (chronic obstructive pulmonary disease) ([facility]), Coronary artery disease, Delayed emergence [...] last month? No Travel History Travel since 03/10/21 No documented travel since 03/10/21 Relevant Domestic Travel History: None Immunizations not reviewed VACCINE/DOSE DATE DATE Flu 11/21/2019 12/27/2020 Tetanus Pneumovax Shingles Allergies Morphine and related and Tramadol Medications Current Facility-Administered Medications Medication Dose Route Frequency Provider Last Rate Last Admin ??? acetaminophen (Tylenol) tablet 1,000 mg 1,000 mg Oral q6h INO Britton MD 1,000 mg at 04/10/211807 ??? enoxaparin (Lovenox) syringe 40 mg 40 mg Subcutaneous q24h INO Britton MD 40 mg at 04/10/211806 ??? HYDROmorphone (Dilaudid) injection 0.25 mg 0.25 mg Intravenous q2h PRN Claudio Britton MD 0.25mg at 04/10/212040 ??? lactated Ringer's infusion 250 mL/hr Intravenous Continuous Claudio Britton MD 250 mL/hr at 04/10/212039 250 mL/hr at 04/10/212039 ??? ondansetron (Zofran) injection 4 mg 4 mg Intravenous q6h PRN Claudio Britton MD 4 mg at 04/10/211803 ??? promethazine (Phenergan) injection 12.5 mg 12.5 mg Intravenous q4h PRN Claudio Britton MD 12.5mg at 04/10/212040 ??? sodium chloride 0.9 % flush 10 mL 10 mL Intravenous q12h PRN Claudio Britton MD Review of Systems 14 point ROS performed and negative except for the information contained in the HPI Physical Exam Constitutional: General: She is awake. Cardiovascular: Rate and Rhythm: Regular rhythm. Tachycardia present. Heart sounds: Normal heart sounds. Pulmonary: Effort: Pulmonary effort is normal. Breath sounds: Normal breath sounds. Abdominal: General: Abdomen is flat. Comments: Tenderness to palpation in the epigastrium and LUQ without tenderness. Normoactive bowel sounds. Musculoskeletal: Comments: No CVA tenderness. No tenderness on the back at all. Skin: Comments: Warm and dry Psychiatric: Behavior: Behavior is cooperative. Last Recorded Vitals Blood pressure 119/83, pulse 71, temperature 36.7 ??C (98.1 ??F), resp. rate 18, height 1.651 m (5'5 ), weight 91.3 kg (201 lb 4.5 oz), SpO2 96 %, not currently . Assessment/Plan Principal Problem: Chronic pancreatitis ([facility]) Ms. Gayle presents with mild pancreatitis Acute on chronic mild pancreatitis - Patient with no organ damage, by does have inability to tolerate PO - Patient follows with GI as an outpatient - Patietn has had multiple CT scans over the past year. PLAN - LR 250 mL/hr - hydromorphone 0.25 mg q2 hr prn - nausea control with ondansetron 4 mg q 6 hr prn and promethazine 12.5 mg prn - Continue patient's home lyrica - order Creon with able to tolerate PO Anxiety/bipolar - Continue patient's latuda and effexor F: LR 250/hr E: No need to monitor N: When able, clear liquid ordered Electronically Signed by: Claudio Britton MD - 04/10/2021 - 9:46 PM Cosigned by Trevon Faust MD at 04/11/2021 11:18 AM EST Associated attestation - Trevon Faust MD - 04/11/2021 11:18 AM EST I saw and evaluated the patient with the resident/fellow. I discussed the case with the resident/fellow and agree with the findings and plan as documented. * ED Provider Notes - Lias Carbone APRN - 04/10/2021 11:42 AM EST HPI Chief Complaint Patient presents with ??? Abdominal Pain Rosibel Gayle is a 35 y.o. female with a history of chronic pancreatitis, GERD and anxiety presentingto the emergency department with c/o acute worsening of left upper quadrant pain x2 days with nausea has not had active vomiting or diarrhea reports that pain has intensified. Patient states she feels like her pancreas is flaring up patient states she was admitted last month was prescribed oxycodone however that did not help this discomfort. Patient has a history of duodenal ulcers and takes pantoprazole has had no hematemesis or hematochezia. Patient denies any known fevers, chest pain, shortness of breath or urinary symptoms. Patient reports pain as being sharp radiating around to the left back. No data recorded Patient History Past Medical [...] are negative. Physical Exam ED Triage Vitals [04/10/21 1212] Temp Heart Rate Resp BP 36.9 ??C (98.4 ??F) 109 18 (!) 133/93 SpO2 Temp Source Heart Rate Source Patient [...] Course & MDM Clinical Impressions as of 04/10/21 1820 Chronic pancreatitis, unspecified pancreatitis type ([facility]/HCC) Lab Results Labs Reviewed COMPREHENSIVE METABOLIC PANEL, PLASMA - Abnormal Result Value Glucose, Plasma 98 BUN, Plasma 8 Creatinine, Plasma 0.65 BUN/Creatinine Ratio 12 Sodium, Plasma 140 Potassium, Plasma 4.3 Chloride, Plasma 104 CO2, Plasma 22 Anion Gap 14 Total Calcium, Plasma 9.3 Total Protein 7.6 Albumin, Plasma 4.3 AST, Plasma 19 ALT, Plasma 19 Alkaline Phosphatase, Plasma 115 (*) Total Bilirubin, Plasma 0.2 eGFR >60 eGFR, if AFR/AM >60 LIPASE, PLASMA - Abnormal Lipase, Plasma 232 (*) CBC W/O DIFFERENTIAL - Abnormal WBC Count 8.79 RBC Count 4.99 HGB 13.4 HCT 41.8 Platelet Count 356 MCV 84 MCH 26.9 MCHC 32.1 RDW 14.8 (*) MPV 9.7 nRBC 0.0 URINALYSIS WITH REFLEX MICROSCOPIC - Abnormal Color, Urine Dark Yellow Clarity, Urine Cloudy Spec [place], Urine 1.029 pH, Urine 6.0 Protein, Urine Trace (*) Glucose, Urine Negative Ketones, Urine Negative Blood, Urine Negative Bilirubin, Urine Negative Urobilinogen, Urine 1.0 Leukocytes, Urine Trace (*) Nitrite, Urine Negative RBC, Urine <1 WBC, Urine 0 - 5 Squamous Epithelial Cells 6 - 10 (*) Hyaline Casts 0 - 8 Bacteria, Urine Present Narrative: Performed by manual method LACTATE, VENOUS - Normal Lactate, Venous, Whole Blood 0.8 SARS COV2 COVID 19/INFLUENZA A, B DRUG ABUSE SCREEN, URINE Amphetamine Screen Urine Value: Presumptive positive. Confirmation by LC-MS/MS to follow. Benzodiazepines Screen Urine Negative Cannabinoid Screen Urine Value: Presumptive positive. Confirmation by LC-MS/MS to follow. Cocaine Screen Urine Negative Barbiturate Screen Urine Negative Opiate Screen Urine Negative Methadone Screen Urine Negative Buprenorphine Screen Urine Negative Fentanyl Screen Urine Value: Presumptive positive. Confirmation by LC-MS/MS to follow. Oxycodone Screen Urine Value: Presumptive positive. Confirmation by LC-MS/MS to follow. URINALYSIS MICROSCOPIC FOR UA REFLEX AMPHETAMINES LCMSMS URINE THC URINE CONFIRM FENTANYL, URINE OPIATES, LCMSMS, URINE Imaging Results No orders to display ED Disposition: MDM Number of Diagnoses or Management Options Chronic pancreatitis, unspecified pancreatitis type (CMS/HCC) Diagnosis management comments: Differential diagnosis of abdominal pain includes, but is not limited to, appendicitis, torsion, diverticulitis, pancreatitis, gastritis, IBD, cholecystitis, SBO/LBO, ,and perforated bowel. All of these have been considered. Patient reported typical pain for her acute exacerbations of pancreatitis. Patient's lipase was 232. Patient received multiple doses of pain management antiemetics with 2 L of fluid resuscitation. Due to patient's pain level internal Medicinewas consulted for admission for further hydration and pain management. Patient had no metabolic derangement or acute leukocytosis the be concerning for a necrotizing pancreatitis requiring further imaging. Amount and/or Complexity of Data Reviewed Clinical lab tests: ordered and reviewed Tests in the medicine section of CPT??: ordered and reviewed Decide to obtain previous medical records or to obtain history from someone other than the patient:yes Review and summarize past medical records: yes Discuss the patient with other providers: yes Independent visualization of images, tracings, or specimens: yes Patient Progress Patient progress: stable ED Prescriptions None Sign Off Checklist Clinical Impression: Complete ED Disposition: Complete Lisa Carbone APRN 04/10/21 1820 Cosigned by Kayla Ramos MD at 04/11/2021 3:17 PM EST Associated attestation - Kayla Ramos MD - 04/11/2021 3:17 PM EST Seen by AJAY only. * ED Triage Notes - Gladys Rankin RN - 04/10/2021 11:42 AM EST Patient has history of pancreatitis and 2 days ago she began to experience right upper quad stabbing pain and nausea documented in this encounter Plan of Treatment Not on file documented as of this encounter Procedures Procedure Name Priority Date/Time Associated Diagnosis Comments ECG ADULT Routine 04/19/2021 1:32 PM EST COMPREHENSIVE METABOLIC PANEL, PLASMA Routine 04/19/2021 2:44 AM EST CBC W/O DIFFERENTIAL Routine 04/19/2021 2:24 AM EST EGD Routine 04/18/2021 11:13 AM EST Abdominal pain, epigastric SURGICAL PATHOLOGY EXAM Routine 04/18/2021 11:04 AM EST Chronic pancreatitis, unspecified pancreatitis type (CMS/HCC) Abdominal pain, epigastric HELICOBACTER PYLORI ANTIGEN Routine 04/18/2021 7:54 AM EST PANCREATIC ELASTASE, FECAL Routine 04/18/2021 7:54 AM EST PROTHROMBIN TIME(PT) / INR Routine 04/18/2021 3:48 AM EST CBC WITH AUTO DIFFERENTIAL Routine 04/18/2021 3:48 AM EST COMPREHENSIVE METABOLIC PANEL, PLASMA Routine 04/18/2021 3:48 AM EST BASIC METABOLIC PANEL, PLASMA Routine 04/17/2021 4:[address] ABDOMEN PELVIS W IV CONTRAST Routine 04/16/2021 5:41 PM EST CBC W/O DIFFERENTIAL Routine 04/16/2021 4:55 AM EST COMPREHENSIVE METABOLIC PANEL, PLASMA Routine 04/16/2021 4:54 AM EST EXTRA TUBE LAVENDER TOP Routine 04/13/2021 6:01 AM EST EXTRA TUBES Routine 04/13/2021 6:01 AM EST BASIC METABOLIC PANEL, PLASMA Routine 04/13/2021 2:49 AM EST INSERT PERIPHERAL IV Routine 04/11/2021 4:20 PM EST US GUIDED IV INSERTION Routine 04/11/2021 9:47 AM EST SARS COV2 COVID 19/INFLUENZA A, B STAT 04/10/2021 6:10 PM EST URINALYSIS MICROSCOPIC FOR UA REFLEX STAT 04/10/2021 3:54 PM EST AMPHETAMINES LCMSMS URINE STAT 04/10/2021 3:54 PM EST OPIATES, LCMSMS, URINE STAT 04/10/2021 3:54 PM EST DRUG ABUSE SCREEN, URINE STAT 04/10/2021 3:54 PM EST THC URINE CONFIRM STAT 04/10/2021 3:5 4 PM EST FENTANYL, URINE STAT 04/10/2021 3:54 PM EST URINALYSIS WITH REFLEX MICROSCOPIC STAT 04/10/2021 3:54 PM EST LACTATE, VENOUS STAT 04/10/2021 2:13 PM EST CBC W/O DIFFERENTIAL STAT 04/10/2021 2:13 PM EST LIPASE, PLASMA STAT 04/10/2021 2:13 PM EST COMPREHENSIVE METABOLIC PANEL, PLASMA STAT 04/10/2021 2:13 PM EST documented in this encounter Results * ECG Adult (04/19/2021 1:32 PM EST) EKG DIAGNOSIS CLASS Abnormal MUSE ECG Ventricular Rate 78 BPM MUSE ECG Atrial Rate 78 BPM MUSE ECG CA Interval 130 ms MUSE ECG QRSD Interval 82 ms MUSE ECG QT Interval 396 ms MUSE ECG QTC Interval 451 ms MUSE ECG P Bl[place] 18 degrees MUSE ECG R Bl[place] 10 degrees MUSE ECG T Wave Blanco 0 degrees MUSE ECG Diagnosis Normal sinus rhythm MUSE ECG Diagnosis Cannot rule out MUSE ECG Diagnosis Anterior infarct MUSE ECG Diagnosis , age undetermined MUSE ECG Diagnosis Abnormal ECG MUSE ECG Diagnosis Confirmed by Benjamin Razo ([id number]) on 04/19/2021 1:15:38 PM MUSE ECG 04/19/2021 1:32 PM EST 04/19/2021 1:15 PM EST us Roderick Kmi MD ECG ORDERABLES Final Result MUSE ECG * (ABNORMAL) Comprehensive metabolic panel (04/19/2021 2:44 AM EST) Glucose, Plasma 126(H) 74 - 99 mg/dL 04/19/2021 3:33 AM EST [facility] BUN, Plasma 6(L) 7 - 21 mg/dL 04/19/2021 3:33 AM EST [facility] Creatinine, Plasma 0.66 0.60 - 1.10 mg/dL 04/19/2021 3:33 AM EST [facility] BUN/Creatinine Ratio 9 04/19/2021 3:33 AM EST [facility] Sodium, Plasma 138 136 - 145 mmol/L 04/19/2021 3:33 AM [facility] Potassium, Plasma 3.7 3.7 - 4.8 mmol/L 04/19/2021 3:33 AM EST [facility] Chloride, Plasma 102 97 - 107 mmol/L 04/19/2021 3:33 AM EST [facility] CO2, Plasma 27 22 - 29 mmol/L 04/19/2021 3:33 AM EST [facility] Anion Gap 9 6 - 16 mmol/L 04/19/2021 3:33 AM [facility] Total Calcium, Plasma 8.9 8.9 - 10.2 mg/dL 04/19/2021 3:33 AM [facility] Total Protein 5.4(L) 6.3 - 7.9 g/dL 04/19/2021 3:33 AM [facility] Albumin, Plasma 3.1(L) 3.5 - 5.2 g/dL 04/19/2021 3:33 AM [facility] AST, Plasma 26 11 - 32 U/L 04/19/2021 3:33 AM [facility] ALT, Plasma 24 8 - 33 U/L 04/19/2021 3:33 AM [facility] Alkaline Phosphatase, Plasma 103 35 - 104 U/L 04/19/2021 3:33 AM [facility] Total Bilirubin, Plasma 0.2 0.2 - 1.1 mg/dL 04/19/2021 3:33 AM [facility] eGFR >60 >60 mL/min/1.7 3m*2 04/19/2021 3:33 AM EST [facility] Comment:eGFR = estimated GFR ; eGFR units = mL/min/1.73 sq meters Chronic Kidney Disease is considered if eGFR <60 mL/min/1.73 sq meters Kidney failure is considered if eGFR is <15 mL/min/1.73 sq meters. eGFR assumes steady state plasma creatinine concentration; not applicable if renal function is rapidly changing or patient is on dialysis. eGFR, if AFR/AM >60 >60 mL/min/1.7 3m*2 04/19/2021 3:33 AM EST [facility] Comment:eGFR = estimated GFR ; eGFR units = mL/min/1.73 sq meters Chronic Kidney Disease is considered if eGFR <60 mL/min/1.73 sq meters Kidney failure is considered if eGFR is <15 mL/min/1.73 sq meters. eGFR assumes steady state plasma creatinine concentration; not applicable if renal function is rapidly changing or patient is on dialysis. Blood Venous blood specimen / Unknown Venipuncture / Unknown 04/19/2021 2:44 AM EST 04/19/2021 2:56 AM EST us Abel Valdez MD LAB BLOOD ORDERABLES Fin al Result Performing Organization Address City/State/[facility] Co de Phone Number [facility] [address] [place], [place] [id number] * (ABNORMAL) CBC W/O Differential (04/19/2021 2:24 AM EST) WBC Count 4.61 3.70 - 10.30 10*3/uL LAB HEMATOLOGY METHOD 04/19/2021 3:01 AM EST [facility] RBC Count 3.82(L) 3.90 - 5.20 10*6/uL LAB HEMATOLOGY METHOD 04/19/2021 3:01 AM EST [facility] HGB 10.4(L) 11.2 - 15.7 g/dL LAB HEMATOLOGY METHOD 04/19/2021 3:01 AM EST [facility] HCT 32.8(L) 34.0 - 45.0 % LAB HEMATOLOGY METHOD 04/19/2021 3:01 AM EST [facility] Platelet Count 193 155 - 369 10*3/uL LAB HEMATOLOGY METHOD 04/19/2021 3:01 AM EST [facility] MCV 86 79 - 98 fL LAB HEMATOLOGY METHOD 04/19/2021 3:01 AM EST [facility] MCH 27.2 26.0 - 32.0 pg LAB HEMATOLOGY METHOD 04/19/2021 3:01 AM EST [facility] MCHC 31.7 30.7 - 35.5 g/dL LAB HEMATOLOGY METHOD 04/19/2021 3:01 AM EST [facility] RDW 14.7(H) 11.5 - 14.5 % LAB HEMATOLOGY METHOD 04/19/2021 3:01 AM EST [facility] MPV 10.0 8.8 - 12.5 fL LAB HEMATOLOGY METHOD 04/19/2021 3:01 AM EST [facility] nRBC 0.0 <=0.0 per 100 WBCs LAB HEMATOLOGY METHOD 04/19/2021 3:01 AM EST [facility] Blood Venous blood specimen / Unknown Venipuncture / Unknown 04/19/2021 2:24 AM EST 04/19/2021 2:56 AM EST us Abel Valdez MD LAB BLOOD ORDERABLES Fin al Result [facility] [address] [place] [address] * EGD ALONDRA CANCHOLA; 04/18/2021 (04/18/2021 11:13 AM EST) Anatomical Region Laterality Modality Endoscopy Narrative 04/18/2021 12:05 PM EST Impression The esophagus appeared normal. Z-line is 36 cm from the incisors. Food in the fundus of the stomach and antrum. Most of it was liquid food and was able to be suctioned but here were some areas of solid food Moderate, patchy edematous and erythematous mucosa with erosion in the body of the stomach, incisura and antrum; performed cold forceps biopsy to rule out H. pylori The duodenal bulb, 1st part of the duodenum and 2nd part of the duodenum appeared normal. Performed random biopsy. Recommendation - return to floor for ongoing medical care - would recommend starting sucralfate 1 g QID scheduled - continue PPI BID x 8 weeks - follow pathology results - we will continue to follow inpatient Indication Abdominal pain, epigastric Medications See anesthesia record for anesthesia administered medications. Staff Staff Role Edenilson Gonzalez MD Anesthesiologist Christopher Magallanes CRNA [employer]ST Cat Giron RN Endo Nurse Sharif Corcoran MD Proceduralist Mohsen Alonzo MD Proceduralist Unknown Proceduralist 1 Proceduralist Preprocedure A history and physical has been [...] the procedure well. There were no apparent complications. Attestation I was present for the entire procedure Specimens ID Type Source Tests Collected by Time A : Duodenal biopsy Tissue Duodenum SURGICAL PATHOLOGY EXAM Mohsen Alonzo MD 04/18/2021 1104 B : gastric biopsy Tissue Stomach SURGICAL PATHOLOGY EXAM Mohsen Alonzo MD 04/18/2021 1104 Findings The esophagus appeared normal. Z-line is 36 cm from the incisors. Food in the fundus of the stomach and antrum. Most of it was liquid food and was able to be suctioned but here were some areas of solid food Moderate, patchy edematous and erythematous mucosa with erosion in the body of the stomach, incisura and antrum; performed cold forceps biopsy to rule out H. pylori The duodenal bulb, 1st part of the duodenum and 2nd part of the duodenum appeared normal. Performed random biopsy. us Abel Valdez MD GI PROCEDURE ORDERABLES Final Result * Surgical Pathology Exam (04/18/2021 11:04 AM EST) Case Report Surgical Pathology ?Case: [id number] ? Authorizing Provider: ??Sharif Corcoran MD ?Collected: ? 04/18/2021 1104 ? Ordering Location: ? [facility] ?Received: ?04/18/2021 1352 ? Pathologist: ? Rachel Shields MD ? Specimens: ?? A) - Duodenum, Duodenal biopsy ? B) - Stomach, gastric biopsy ? 04/20/2021 5:35 PM EST [facility] Final Diagnosis A. DUODENUM, BIOPSY: - DUODENAL MUCOSA WITHOUT DIAGNOSTIC ABNORMALITY. B. STOMACH, BIOPSY: - GASTRIC MUCOSA WITH FEATURES OF HEALING EROSION. - NEGATIVE FOR HELICOBACTER ORGANISMS ON ROUTINE STAIN. 04/20/2021 5:35 PM EST [facility] Clinical Information K86.1 - Chronic pancreatitis, unspecified pancreatitis type (CMS/HCC) [ICD-10-CM] R10.13 - Abdominal pain, epigastric [ICD-10-CM] 04/20/2021 5:35 PM EST [facility] Gross Description A. DUODENAL BIOPSY The specimen is received in formalin labeled duodenal biopsy , and consists of three pink-das soft tissue fragments ranging from 0.3-0.5 cm in greatest dimension. Entirely submitted in cassette A1. Eboni Owensoche B. GASTRIC BIOPSY The specimen is received in formalin labeled gastric biopsy , and consists of four pink-das soft tissue fragments ranging from 0.2-0.3 cm in greatest dimension. Entirely submitted in cassette B 1. Eboni Brunsone 04/20/2021 5:35 PM EST [facility] Note: A resident was involved in the service. I attest I examined the relevant preparations for the specimens and confirmed the diagnosis or interpretation. 04/20/2021 5:35 PM EST [facility] Tissue Stomach structure / Unknown 04/18/2021 11:04 AM EST 04/18/2021 1:52 PM EST Tissue specimen (specimen) Stomach structure / Unknown 04/18/2021 11:04 AM EST 04/18/2021 1:52 PM EST Sharif Corcoran MD LAB PATHOLOGY ORDERABLES Fi nal Result [facility] [address] [place] [address] * (ABNORMAL) Pancreatic elastase, fecal (04/18/2021 7:54 AM EST) Pancreatic Elastase, Fecal <10(L) >=100 ug/g 04/21/2021 2:33 PM EST [facility] Stool Rectum structure / Unknown Non-blood Collection / Unknown 04/18/2021 7:54 AM EST 04/18/2021 8:04 AM EST Abel Valdez MD LAB BODY FLUIDS AND STOO LS ORDERABLES Final Result [facility] ([facility]) [address] [place] [address] * Helicobacter pylori Antigen (04/18/2021 7:54 AM EST) Helicobacter pylori Antigen Result Negative Negative 04/19/2021 10:03 AM EST [facility] Stool Rectum structure / Unknown Non-blood Collection / Unknown 04/18/2021 7:54 AM EST 04/18/2021 8:05 AM EST Abel Valdez MD LAB MICROBIOLOGY - GENER AL ORDERABLES Final Result Performing Organization Address City/[facility]/ZIP Co de Phone Number [facility] [address] [place] [address] * Protime-INR (04/18/2021 3:48 AM EST) Prothrombin Time 12.5 12.0 - 14.3 sec 04/18/2021 4:29 AM EST [facility] INR 0.9 0.9 - 1.1 04/18/2021 4:29 AM EST [facility] Blood Venous blood specimen / Unknown Venipuncture / Unknown 04/18/2021 3:48 AM EST 04/18/2021 4:16 AM EST Abel Valdez MD LAB BLOOD ORDERABLES Fin al Result Performing Organization Address City/[facility]/ZIP Co de Phone Number [facility] [address] [place] [address] * (ABNORMAL) Comprehensive metabolic panel (04/18/2021 3:48 AM EST) Glucose, Plasma 100(H) 74 - 99 mg/dL 04/18/2021 4:42 AM EST [facility] BUN, Plasma 4(L) 7 - 21 mg/dL 04/18/2021 4:42 AM EST [facility] Creatinine, Plasma 0.71 0.60 - 1.10 mg/dL 04/18/2021 4:42 AM EST [facility] BUN/Creatinine Ratio 6 04/18/2021 4:42 AM [facility] Sodium, Plasma 138 136 - 145 mmol/L 04/18/2021 4:42 AM EST [facility] Potassium, Plasma 4.2 3.7 - 4.8 mmol/L 04/18/2021 4:42 AM EST [facility] Chloride, Plasma 101 97 - 107 mmol/L 04/18/2021 4:42 AM EST [facility] CO2, Plasma 25 22 - 29 mmol/L 04/18/2021 4:42 AM [facility] Anion Gap 12 6 - 16 mmol/L 04/18/2021 4:42 AM [facility] Total Calcium, Plasma 9.5 8.9 - 10.2 mg/dL 04/18/2021 4:42 AM [facility] Total Protein 6.3 6.3 - 7.9 g/dL 04/18/2021 4:42 AM [facility] Albumin, Plasma 3.7 3.5 - 5.2 g/dL 04/18/2021 4:42 AM [facility] AST, Plasma 37(H) 11 - 32 U/L 04/18/2021 4:42 AM [facility] ALT, Plasma 33 8 - 33 U/L 04/18/2021 4:42 AM [facility] Alkaline Phosphatase, Plasma 111(H) 35 - 104 U/L 04/18/2021 4:42 AM [facility] Total Bilirubin, Plasma 0.2 0.2 - 1.1 mg/dL 04/18/2021 4:42 AM [facility] eGFR >60 >60 mL/min/1.7 3m*2 04/18/2021 4:42 AM [facility] Comment:eGFR = estimated GFR ; eGFR units = mL/min/1.73 sq meters Chronic Kidney Disease is considered if eGFR <60 mL/min/1.73 sq meters Kidney failure is considered if eGFR is <15 mL/min/1.73 sq meters. eGFR assumes steady state plasma creatinine concentration; not applicable if renal function is rapidly changing or patient is on dialysis. eGFR, if AFR/AM >60 >60 mL/min/1.7 3m*2 04/18/2021 4:42 AM [facility] Comment:eGFR = estimated GFR ; [...] blood specimen / Unknown Venipuncture / Unknown 04/18/2021 3:48 AM EST 04/18/2021 4:16 AM EST us Abel Valdez MD LAB BLOOD ORDERABLES Fin al Result [facility] [address] [place] [address] * (ABNORMAL) CBC and differential (04/18/2021 3:48 AM EST) WBC Count 7.29 3.70 - 10.30 10*3/uL LAB HEMATOLOGY METHOD 04/18/2021 4:20 AM EST [facility] RBC Count 4.41 3.90 - 5.20 10*6/uL LAB HEMATOLOGY METHOD 04/18/2021 4:20 AM EST [facility] HGB 11.8 11.2 - 15.7 g/dL LAB HEMATOLOGY METHOD 04/18/2021 4:20 AM EST [facility] HCT 38.2 34.0 - 45.0 % LAB HEMATOLOGY METHOD 04/18/2021 4:20 AM EST [facility] Platelet Count 223 155 - 369 10*3/uL LAB HEMATOLOGY METHOD 04/18/2021 4:20 AM EST [facility] MCV 87 79 - 98 fL LAB HEMATOLOGY METHOD 04/18/2021 4:20 AM EST [facility] MCH 26.8 26.0 - 32.0 pg LAB HEMATOLOGY METHOD 04/18/2021 4:20 AM EST [facility] MCHC 30.9 30.7 - 35.5 g/dL LAB HEMATOLOGY METHOD 04/18/2021 4:20 AM EST [facility] RDW 14.6(H) 11.5 - 14.5 % LAB HEMATOLOGY METHOD 04/18/2021 4:20 AM EST [facility] MPV 10.5 8.8 - 12.5 fL LAB HEMATOLOGY METHOD 04/18/2021 4:20 AM EST [facility] nRBC 0.0 <=0.0 per 100 WBCs LAB HEMATOLOGY METHOD 04/18/2021 4:20 AM EST [facility] Differential Type Automated LAB HEMATOLOGY METHOD 04/18/2021 4:20 AM EST [facility] Neutrophils % 74.0 % LAB HEMATOLOGY METHOD 04/18/2021 4:20 AM EST [facility] Lymphocytes % 19.0 % LAB HEMATOLOGY METHOD 04/18/2021 4:20 AM EST [facility] Monocytes % 6.0 % LAB HEMATOLOGY METHOD 04/18/2021 4:20 AM EST [facility] Eosinophils % 0.0 % LAB HEMATOLOGY METHOD 04/18/2021 4:20 AM EST [facility] Basophils % 1.0 % LAB HEMATOLOGY METHOD 04/18/2021 4:20 AM EST [facility] Immature Granulocytes % 0.0 % LAB HEMATOLOGY METHOD 04/18/2021 4:20 AM EST [facility] Neutrophils Absolute 5.36 1.60 - 6.10 10*3/uL LAB HEMATOLOGY METHOD 04/18/2021 4:20 AM EST [facility] Lymphocytes Absolute 1.39 1.20 - 3.90 10*3/uL LAB HEMATOLOGY METHOD 04/18/2021 4:20 AM EST [facility] Monocytes Absolute 0.45 0.30 - 0.90 10*3/uL LAB HEMATOLOGY METHOD 04/18/2021 4:20 AM EST [facility] Eosinophils Absolute 0.01 0.00 - 0.50 10*3/uL LAB HEMATOLOGY METHOD 04/18/2021 4:20 AM EST [facility] Basophils Absolute 0.06 0.00 - 0.10 10*3/uL LAB HEMATOLOGY METHOD 04/18/2021 4:20 AM EST [facility] Immature Granulocytes Absolute 0.02 0.00 - 0.06 10*3/uL LAB HEMATOLOGY METHOD 04/18/2021 4:20 AM EST [facility] Blood Venous blood specimen / Unknown Venipuncture / Unknown 04/18/2021 3:48 AM EST 04/18/2021 4:16 AM EST us Abel Valdez MD LAB BLOOD ORDERABLES Fin al Result [facility] [address] [place] [address] * (ABNORMAL) Basic metabolic panel (04/17/2021 4:18 AM EST) [facility] Glucose, Plasma 100(H) 74 - 99 mg/dL 04/17/2021 5:06 AM EST [facility] BUN, Plasma <3(L) 7 - 21 mg/dL 04/17/2021 5:06 AM EST [facility] Creatinine, Plasma 0.72 0.60 - 1.10 mg/dL 04/17/2021 5:06 AM EST [facility] BUN/Creatinine Ratio 04/17/2021 5:06 AM EST [facility] Comment:Unable to calculate, at least one value is above or below the detection limit. Sodium, Plasma 142 136 - 145 mmol/L 04/17/2021 5:06 AM EST [facility] Potassium, Plasma 3.9 3.7 - 4.8 mmol/L 04/17/2021 5:06 AM EST [facility] Chloride, Plasma 100 97 - 107 mmol/L 04/17/2021 5:06 AM EST [facility] CO2, Plasma 30(H) 22 - 29 mmol/L 04/17/2021 5:06 AM EST [facility] Anion Gap 12 6 - 16 mmol/L 04/17/2021 5:06 AM EST [facility] Total Calcium, Plasma 9.7 8.9 - 10.2 mg/dL 04/17/2021 5:06 AM EST [facility] eGFR >60 >60 mL/min/1.7 3m*2 04/17/2021 5:06 AM EST [facility] Comment:eGFR = estimated GFR ; eGFR units = mL/min/1.73 sq meters Chronic Kidney Disease is considered if eGFR <60 mL/min/1.73 sq meters Kidney failure is considered if eGFR is <15 mL/min/1.73 sq meters. eGFR assumes steady state plasma creatinine concentration; not applicable if renal function is rapidly changing or patient is on dialysis. eGFR, if AFR/AM >60 >60 mL/min/1.7 3m*2 04/17/2021 5:06 AM EST [facility] Comment:eGFR = estimated GFR ; eGFR units = mL/min/1.73 sq meters Chronic Kidney Disease is considered if eGFR <60 mL/min/1.73 sq meters Kidney failure is considered if eGFR is <15 mL/min/1.73 sq meters. eGFR assumes steady state plasma creatinine concentration; not applicable if renal function is rapidly changing or patient is on dialysis. Blood Venous blood specimen / Unknown Venipuncture / Unknown 04/17/2021 4:18 AM EST 04/17/2021 4:24 AM EST us Abel Valdez MD LAB BLOOD ORDERABLES Fin al Result [facility] [address] [place] [id number] * CT Abdomen Pelvis w IV Contrast (04/16/2021 5:41 PM EST) Anatomical Region Laterality Modality Abdomen, Pelvis Computed Tomogra phy Impressions 04/16/2021 9:02 PM EST No evidence of acute pancreatitis. No findings to explain patient's abdominal pain. CRITICAL RESULT: ?? No. COMMUNICATION: Per this written report. Dictated by Beba Bourgeois on 04/16/2021 8:54 PM Signed by Beba Bourgeois on 04/16/2021 9:02 PM Narrative 04/16/2021 9:02 PM EST Exam/Procedure: CT ABDOMEN PELVIS W IV CONTRAST ordered by ABEL VALDEZ, [id number] CLINICAL INDICATION: Pancreatitis, acute, severe TECHNIQUE: Multiple axial CT images were obtained from lung bases through pubic symphysis following administration of IV contrast, Omnipaque 300, 100 mL. Delayed images of abdomen and kidneys also obtained. Reformatted images in the coronal and sagittal planes were generated from the axial data set to facilitate diagnostic accuracy. Total DLP (Dose-Length Product): 1391.26 mGy.cm. Please note: The reported value represents the total of one or more individual components during the CT acquisition on this date and at this time, and as such, the same value may appear in more than one CT report depending on the interpreting/reporting physicians. COMPARISON: March 23, 2021 FINDINGS: Lower Chest: Imaged lungs are clear. Solid Abdominal Organs: Liver demonstrates homogenous enhancement. Prior cholecystectomy. No biliary ductal dilatation. Unremarkable spleen, bilateral adrenal glands. The pancreas enhances homogenously. There is preserved parenchymal bulk. No suspicious focal lesions are detected. No pancreatic ductal dilatation. No surrounding inflammatory change. Symmetric renal enhancement and contrast excretion. No renal or ureteral calculi. No hydronephrosis. GI Tract/Mesentery/Peritoneum: Improved gastric wall thickening. The large and small bowel appear normal in caliber. Normal appendix. No evidence of inflammatory change. No suspicious peritoneal/mesenteric findings. Pelvic Viscera: Distended bladder without abnormality. Unremarkable uterus and bilateral ovaries. Lymph Nodes/Vasculature: No lymphadenopathy by CT size criteria. The aortoiliac vasculature is patent and normal in caliber. The splenoportal venous system is patent. The splenic artery is patent without evidence of aneurysm formation. Patent common hepatic artery. Replaced right hepatic artery from the SMA. Free Fluid: No free fluid in the abdomen or pelvis. Musculoskeletal and Body Wall: No aggressive or suspicious findings. Change) soft tissue mass. Procedure Note Beba Bourgeois MD - 04/16/2021 Exam/Procedure: CT ABDOMEN PELVIS W IV CONTRAST ordered by PAUL, [id number] CLINICAL INDICATION: Pancreatitis, acute, severe TECHNIQUE: Multiple axial CT images were obtained from lung bases through pubicsymphysis following administration of IV contrast, Omnipaque 300, 100 mL.Delayed images of abdomen and kidneys also obtained. Reformatted images inthe coronal and sagittal planes were generated from the axial data set tofacilitate diagnostic accuracy. Total DLP (Dose-Length Product): 1391.26 mGy.cm. Please note: The reportedvalue represents the total of one or more individual components during theCT acquisition on this date and at this time, and as such, the same valuemay appear in more than one CT report depending on theinterpreting/reporting physicians. COMPARISON: March 23, 2021 FINDINGS: Lower Chest: Imaged lungs are clear. Solid Abdominal Organs: Liver demonstrates homogenous enhancement. Priorcholecystectomy. No biliary ductal dilatation. Unremarkable spleen,bilateral adrenal glands. The pancreas enhances homogenously. There ispreserved parenchymal bulk. No suspicious focal lesions are detected. Nopancreatic ductal dilatation. No surrounding inflammatory change.Symmetric renal enhancement and contrast excretion. No renal or ureteralcalculi. No hydronephrosis. GI Tract/Mesentery/Peritoneum: Improved gastric wall thickening. The largeand small bowel appear normal in caliber. Normal appendix. No evidence ofinflammatory change. No suspicious peritoneal/mesenteric findings. Pelvic Viscera: Distended bladder without abnormality. Unremarkable uterusand bilateral ovaries. Lymph Nodes/Vasculature: No lymphadenopathy by CT size criteria. Theaortoiliac vasculature is patent and normal in caliber. The splenoportalvenous system is patent. The splenic artery is patent without evidence ofaneurysm formation. Patent common hepatic artery. Replaced right hepaticartery from the SMA. Free Fluid: No free fluid in the abdomen or pelvis. Musculoskeletal and Body Wall: No aggressive or suspicious findings.Change) soft tissue mass. IMPRESSION: No evidence of acute pancreatitis. No findings to explain patient's abdominal pain. CRITICAL RESULT: No. COMMUNICATION: Per this written report. Dictated by Beba Bourgeois on 04/16/2021 8:54 PM Signed by Beba Bourgeois on 04/16/2021 9:02 PM us Abel Valdez MD IMG CT PROCEDURES Final Result * CBC W/O Differential (04/16/2021 4:55 AM EST) WBC Count 4.44 3.70 - 10.30 10*3/uL LAB HEMATOLOGY METHOD 04/16/2021 5:07 AM EST [facility] RBC Count 4.36 3.90 - 5.20 10*6/uL LAB HEMATOLOGY METHOD 04/16/2021 5:07 AM EST [facility] HGB 11.7 11.2 - 15.7 g/dL LAB HEMATOLOGY METHOD 04/16/2021 5:07 AM EST [facility] HCT 37.4 34.0 - 45.0 % LAB HEMATOLOGY METHOD 04/16/2021 5:07 AM EST [facility] Platelet Count 236 155 - 369 10*3/uL LAB HEMATOLOGY METHOD 04/16/2021 5:07 AM EST [facility] MCV 86 79 - 98 fL LAB HEMATOLOGY METHOD 04/16/2021 5:07 AM EST [facility] MCH 26.8 26.0 - 32.0 pg LAB HEMATOLOGY METHOD 04/16/2021 5:07 AM EST [facility] MCHC 31.3 30.7 - 35.5 g/dL LAB HEMATOLOGY METHOD 04/16/2021 5:07 AM EST [facility] RDW 14.1 11.5 - 14.5 % LAB HEMATOLOGY METHOD 04/16/2021 5:07 AM EST [facility] MPV 9.7 8.8 - 12.5 fL LAB HEMATOLOGY METHOD 04/16/2021 5:07 AM EST [facility] nRBC 0.0 <=0.0 per 100 WBCs LAB HEMATOLOGY METHOD 04/16/2021 5:07 AM EST [facility] Blood Venous blood specimen / Unknown Venipuncture / Unknown 04/16/2021 4:55 AM EST 04/16/2021 5:03 AM EST us Trevon Faust MD LAB BLOOD ORDERABLES Final Res ult [facility] [address] [place] [address] * (ABNORMAL) Comprehensive metabolic panel (04/16/2021 4:54 AM EST) Glucose, Plasma 81 74 - 99 mg/dL 04/16/2021 5:38 AM EST [facility] BUN, Plasma 4(L) 7 - 21 mg/dL 04/16/2021 5:38 AM EST [facility] Creatinine, Plasma 0.74 0.60 - 1.10 mg/dL 04/16/2021 5:38 AM EST [facility] BUN/Creatinine Ratio 5 04/16/2021 5:38 AM EST [facility] Sodium, Plasma 141 136 - 145 mmol/L 04/16/2021 5:38 AM EST [facility] Potassium, Plasma 4.0 3.7 - 4.8 mmol/L 04/16/2021 5:38 AM [facility] Chloride, Plasma 102 97 - 107 mmol/L 04/16/2021 5:38 AM EST [facility] CO2, Plasma 29 22 - 29 mmol/L 04/16/2021 5:38 AM EST [facility] Anion Gap 10 6 - 16 mmol/L 04/16/2021 5:38 AM [facility] Total Calcium, Plasma 9.7 8.9 - 10.2 mg/dL 04/16/2021 5:38 AM EST [facility] Total Protein 6.5 6.3 - 7.9 g/dL 04/16/2021 5:38 AM EST [facility] Albumin, Plasma 3.8 3.5 - 5.2 g/dL 04/16/2021 5:38 AM EST [facility] AST, Plasma 15 11 - 32 U/L 04/16/2021 5:38 AM [facility] ALT, Plasma 14 8 - 33 U/L 04/16/2021 5:38 AM [facility] Alkaline Phosphatase, Plasma 97 35 - 104 U/L 04/16/2021 5:38 AM [facility] Total Bilirubin, Plasma 0.2 0.2 - 1.1 mg/dL 04/16/2021 5:38 AM [facility] eGFR >60 >60 mL/min/1.7 3m*2 04/16/2021 5:38 AM EST [facility] Comment:eGFR = estimated GFR ; eGFR units = mL/min/1.73 sq meters Chronic Kidney Disease is considered if eGFR <60 mL/min/1.73 sq meters Kidney failure is considered if eGFR is <15 mL/min/1.73 sq meters. eGFR assumes steady state plasma creatinine concentration; not applicable if renal function is rapidly changing or patient is on dialysis. eGFR, if AFR/AM >60 >60 mL/min/1.7 3m*2 04/16/2021 5:38 AM EST [facility] Comment:eGFR = estimated GFR [...] blood specimen / Unknown Venipuncture / Unknown 04/16/2021 4:54 AM EST 04/16/2021 5:03 AM EST us Trevon Faust MD LAB BLOOD ORDERABLES Final Res ult [facility] [address] [place] [address] * Lavender Top (04/13/2021 6:01 AM EST) Extra Hold for add-ons. 04/13/2021 6:01 AM EST [facility] Comment:Auto resulted. Blood Venous blood specimen / Unknown 04/13/2021 3:06 AM EST Trevon Faust MD LAB BLOOD ORDERABLES Final Res ult Performing Organization Address City/[facility]/ZIP Co de Phone Number [facility] [address] [place] [address] * (ABNORMAL) Basic metabolic panel (04/13/2021 2:49 AM EST) Glucose, Plasma 99 74 - 99 mg/dL 04/13/2021 3:32 AM EST [email or web address] BUN, Plasma 6(L) 7 - 21 mg/dL 04/13/2021 3:32 AM EST [facility] Creatinine, Plasma 0.66 0.60 - 1.10 mg/dL 04/13/2021 3:32 AM [facility] BUN/Creatinine Ratio 9 04/13/2021 3:32 AM EST [facility] Sodium, Plasma 140 136 - 145 mmol/L 04/13/2021 3:32 AM EST [facility] Potassium, Plasma 4.2 3.7 - 4.8 mmol/L 04/13/2021 3:32 AM [facility] Chloride, Plasma 102 97 - 107 mmol/L 04/13/2021 3:32 AM [facility] CO2, Plasma 28 22 - 29 mmol/L 04/13/2021 3:32 AM [facility] Anion Gap 10 6 - 16 mmol/L 04/13/2021 3:32 AM EST [facility] Total Calcium, Plasma 9.4 8.9 - 10.2 mg/dL 04/13/2021 3:32 AM EST [facility] eGFR >60 >60 mL/min/1.7 3m*2 04/13/2021 3:32 AM [facility] Comment:eGFR = estimated GFR ; eGFR units = mL/min/1.73 sq meters Chronic Kidney Disease is considered if eGFR <60 mL/min/1.73 sq meters Kidney failure is considered if eGFR is <15 mL/min/1.73 sq meters. eGFR assumes steady state plasma creatinine concentration; not applicable if renal function is rapidly changing or patient is on dialysis. eGFR, if AFR/AM >60 >60 mL/min/1.7 3m*2 04/13/2021 3:32 AM [facility] Comment:eGFR = estimated GFR ; [...] blood specimen / Unknown Venipuncture / Unknown 04/13/2021 2:49 AM EST 04/13/2021 3:02 AM EST Trevon Faust MD LAB BLOOD ORDERABLES Final Res ult [facility] [address] [place] [address] * PERIPHERAL IV (SMARTFORM LINK) (04/11/2021 4:20 PM EST) Narrative Citlali Umana RN - 04/11/2021 4:20 PM EST Citlali Umana RN ? 04/11/2021 ??4:37 PM Insert peripheral IV Date/Time: 04/11/2021 4:20 PM Performed by: Citlali Umana RN Authorized by: Trevon Faust MD [place] Protocol: ??Verbal consent obtained?: Yes ?Consent given by: ??Patient ??Patient states understanding of procedure being performed: Yes ?Required items: Required blood products, implants, devices and special equipment available ?Patient identity confirmed: ??Verbally with patient, provided demographic data, arm band and hospital-assigned identification number ??Time out: Immediately prior to the procedure a time out was called ?? Hand hygiene: Hand hygiene performed prior to insertion ?? Inserted using aseptic techniques: Yes ?? Preparation: ??Skin prepped with alcohol and skin prepped with chg Orientation: ??Right and upper (cephalic vein) Location: ??Arm Catheter placed: ??Peripheral IV Catheter size: 20g/2.25 in AccuCath. Number of attempts: ??1 IV flushes: ??Without difficulty and positive blood return noted and IV luer locked Patient tolerance: ??Patient tolerated the procedure well and there were no complications IV site covered with: ??Transparent semipermeable dressing Comments: ?? Alcohol swab cap(s) applied. us Trevon Faust MD IV THERAPY ORDERABLES Final Re sult * US Guided IV Insertion (04/11/2021 9:47 AM EST) Narrative SYSTEMGENERATED, 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 - 04/11/2021 9:47 AM EST These images were captured for the placement of an US-guided IV or PICC line placement. us Trevon Faust MD IMG US PROCEDURES Final Result * SARS-CoV-2 COVID-19/Influenza A,B (04/10/2021 6:10 PM EST) SARS CoV-2/COVID-1 9 RNA PCR Result Not Detected Not Detected 04/10/2021 7:04 PM EST [facility] Influenza A Virus PCR Result Not Detected Not Detected 04/10/2021 7:04 PM EST [facility] Influenza B Virus PCR Result Not Detected Not Detected 04/10/2021 7:04 PM EST [facility] Swab Nasopharyngeal structure / Unknown Non-blood Collection / Unknown 04/10/2021 6:10 PM EST 04/10/2021 6:27 PM EST Narrative [facility] - 04/10/2021 7:04 PM EST This test was performed using [...] signs and symptoms consistent with COVID-19. us Trevon Faust MD LAB MICROBIOLOGY - GENERAL ORD ERABLES Final Result [facility] [address] [place] [address] * (ABNORMAL) Opiates Confirm Urine (04/10/2021 3:54 PM EST) Codeine <50 <50 ng/mL 04/14/2021 11:40 AM EST [facility] Codeine Glucuronide <50 <50 ng/mL 04/14/2021 11:40 AM [facility] Desmethyl Tramadol <50 <50 ng/mL 2021 11:40 AM [facility] EDDP - Methadone Metabolite <50 <50 ng/mL 04/14/2021 11:40 AM [facility] Hydrocodone <50 <50 ng/mL 04/14/2021 11:40 AM [facility] Hydromorphone <50 <50 ng/mL 04/14/2021 11:40 AM [facility] Hydromorphone Glucuronide <50 <50 ng/mL 04/14/2021 11:40 AM [facility] Comment:Metabolite of Hydrom orphone Meperidine <50 <50 ng/mL 04/14/2021 11:40 AM [facility] Methadone <50 <50 ng/mL 04/14/2021 11:40 AM [facility] 6 Monoacetyl morphine <10 <10 ng/mL 04/14/2021 11:40 AM [facility] Morphine <50 <50 ng/mL 04/14/2021 11:40 AM [facility] Morphine Glucuronide <50 <50 ng/mL 04/14/2021 11:40 AM [facility] Comment:Metabolite of Morphi ne Naloxone <50 <50 ng/mL 04/14/2021 11:40 AM [facility] Naloxone Glucuronide <50 <50 ng/mL 04/14/2021 11:40 AM [facility] Comment:Metabolite of Naloxo ne Normeperidine <50 <50 ng/mL 04/14/2021 11:40 AM [facility] Oxycodone <50 <50 ng/mL 04/14/2021 11:40 AM [facility] Oxymorphone <50 <50 ng/mL 04/14/2021 11:40 AM [facility] Oxymorphone Glucuronide 510(H) <50 ng/mL 04/14/2021 11:40 AM [facility] Comment:Metabolite of Oxymor phone Tramadol <50 <50 ng/mL 04/14/2021 11:40 AM [facility] Urine Urine specimen obtained by clean catch procedure / Unknown Non-blood Collection / Unknown 04/10/2021 3:54 PM EST 04/10/2021 3:54 PM EST Narrative [facility] - 04/14/2021 11:40 AM EST Drug analysis is confirmed by LC-MS/MS (LC Tandem Mass Spectrometry) on Urine specimens. ?? This test was developed and its performance characteristics determined by [facility]. It has not been cleared or approved by the FDA. The laboratory is regulated under CLIA as qualified to perform high-complexity testing. This test is used for clinical purposes. Testing is performed at the [facility], [facility]. LisaRontal Applicationser [facility] URINE ORDERABLES Final Result Performing Organization Address City/[facility] Co de Phone Number [facility] [address] [place] [phone] * (ABNORMAL) Fentanyl Urine Confirm (04/10/2021 3:54 PM EST) Fentanyl 2(H) <1 ng/mL 04/14/2021 11:39 AM EST [facility] Norfentanyl 3(H) <2 ng/mL 04/14/2021 11:39 AM EST [facility] Urine Urine specimen obtained by clean catch procedure / Unknown Non-blood Collection / Unknown 04/10/2021 3:54 PM EST 04/10/2021 3:54 PM EST Narrative [facility] - 04/14/2021 11:39 AM EST Drug analysis is confirmed by LC-MS/MS (LC Tandem Mass Spectrometry) on Urine specimens. ?? This test was developed and its performance characteristics determined by [facility]. It has not been cleared or approved by the FDA. The laboratory is regulated under CLIA as qualified to perform high-complexity testing. This test is used for clinical purposes. Testing is performed at the [facility], [facility]. [facility] URINE ORDERABLES Final Result Performing Organization Address City/[facility]/ZIP Co de Phone Number [facility] [address] [place] [address] * (ABNORMAL) THC Urine Confirm LCMSMS (04/10/2021 3:54 PM EST) 9 Carboxy THC 22(H) <10 ng/mL 04/14/2021 11:39 AM EST [facility] 9 Carboxy THC Glucuronide 63(H) <50 ng/mL 04/14/2021 11:39 AM EST [facility] Urine Urine specimen obtained by clean catch procedure / Unknown Non-blood Collection / Unknown 04/10/2021 3:54 PM EST 04/10/2021 3:54 PM EST Narrative [facility] - 04/14/2021 11:39 AM EST Drug analysis is confirmed by LC-MS/MS (LC Tandem Mass Spectrometry) on Urine specimens. ?? This test was developed and its performance characteristics determined by [facility]. It has not been cleared or approved by the FDA. The laboratory is regulated under CLIA as qualified to perform high-complexity testing. This test is used for clinical purposes. Testing is performed at the [facility], [facility]. Lisa Carbone [facility] URINE ORDERABLES Final Result [facility] [address] [place] [address] * Amphetamine Urine Confirm LCMSMS (04/10/2021 3:54 PM EST) Amphetamine <50 <50 ng/mL 04/14/2021 11:39 AM EST [facility] Methamphetamine <50 <50 ng/mL 11:39 AM EST [facility] MDA <50 <50 ng/mL 04/14/2021 11:39 AM EST [facility] MDMA <50 <50 ng/mL 04/14/2021 11:39 AM EST [facility] Urine Urine specimen obtained by clean catch procedure / Unknown Non-blood Collection / Unknown 04/10/2021 3:54 PM EST 04/10/2021 3:54 PM EST Narrative [facility] - 04/14/2021 11:39 AM EST Drug analysis is confirmed by LC-MS/MS (LC Tandem Mass Spectrometry) on Urine specimens. ?? This test was developed and its performance characteristics determined by [facility]. It has not been cleared or approved by the FDA. The laboratory is regulated under CLIA as qualified to perform high-complexity testing. This test is used for clinical purposes. Testing is performed at the [facility], [facility]. Lisa Aleman [facility] URINE ORDERABLES Final Result Performing Organization Address [facility] de Phone Number [facility] [address] [place] [phone] * Urinalysis Microscopic Examination (04/10/2021 3:54 PM EST) Urine Urine specimen obtained by clean catch procedure / Unknown Non-blood Collection / Unknown 04/10/2021 3:54 PM EST 04/10/2021 3:54 PM EST Lisa Ash Carbone APRN LAB URINE ORDERABLES Final Result Performing Organization Address [facility] de Phone Number [facility] [address] [place] [phone] * Drug abuse screen (04/10/2021 3:54 PM EST) Amphetamine Screen Urine Presumptive positive. Confirmation by LC-MS/MS to follow. Negative 04/10/2021 5:03 PM EST [facility] Benzodiazepines Screen Urine Negative Negative 04/10/2021 5:03 PM EST [facility] Cannabinoid Screen Urine Presumptive positive. Confirmation by LC-MS/MS to follow. Negative 04/10/2021 5:03 PM EST [facility] Cocaine Screen Urine Negative Negative 04/10/2021 5:03 PM EST [facility] Barbiturate Screen Urine Negative Negative 04/10/2021 5:03 PM EST [facility] Opiate Screen Urine Negative Negative 04/10/2021 5:03 PM EST [facility] Methadone Screen Urine Negative Negative 04/10/2021 5:03 PM EST [facility] Buprenorphine Screen Urine Negative Negative 04/10/2021 5:03 PM EST [facility] Fentanyl Screen Urine Presumptive positive. Confirmation by LC-MS/MS to follow. Negative 04/10/2021 5:03 PM EST [facility] Oxycodone Screen Urine Presumptive positive. Confirmation by LC-MS/MS to follow. Negative 04/10/2021 5:03 PM EST [facility] Urine Urine specimen obtained by clean catch procedure / Unknown Non-blood Collection / Unknown 04/10/2021 3:54 PM EST 04/10/2021 3:54 PM EST Lisa Carbone APRN LAB URINE ORDERABLES Final Result [facility] [address] [place] [address] * (ABNORMAL) Urinalysis with reflex microscopic (04/10/2021 3:54 PM EST) Color, Urine Dark Yellow LAB URINALYSIS - AUTOMATED METHOD 04/10/2021 4:11 PM EST [facility] Clarity, Urine Cloudy LAB URINALYSIS - AUTOMATED METHOD 04/10/2021 4:11 PM EST [facility] Spec [place], Urine 1.029 <=1.005 to >=1.030 LAB URINALYSIS - AUTOMATED METHOD 04/10/2021 4:11 PM EST [facility] pH, Urine 6.0 4.5 to 8 LAB URINALYSIS - AUTOMATED METHOD 04/10/2021 4:11 PM EST [facility] Protein, Urine Trace(A) Negative mg/dL LAB URINALYSIS - AUTOMATED METHOD 04/10/2021 4:11 PM EST [facility] Glucose, Urine Negative Negative mg/dL LAB URINALYSIS - AUTOMATED METHOD 04/10/2021 4:11 PM EST [facility] Ketones, Urine Negative Negative mg/dL LAB URINALYSIS - AUTOMATED METHOD 04/10/2021 4:11 PM EST [facility] Blood, Urine Negative Negative LAB URINALYSIS - AUTOMATED METHOD 04/10/2021 4:11 PM EST [facility] Bilirubin, Urine Negative Negative LAB URINALYSIS - AUTOMATED METHOD 04/10/2021 4:11 PM EST [facility] Urobilinogen, Urine 1.0 0.2 to 1.0 mg/dL LAB URINALYSIS - AUTOMATED METHOD 04/10/2021 4:11 PM EST [facility] Leukocytes, Urine Trace(A) Negative LAB URINALYSIS - AUTOMATED METHOD 04/10/2021 4:11 PM EST [facility] Nitrite, Urine Negative Negative LAB URINALYSIS - AUTOMATED METHOD 04/10/2021 4:11 PM EST [facility] RBC, Urine <1 0 to 3 /HPF 04/10/2021 4:11 PM EST [facility] Comment:This result was prev iously suppressed from the chart. WBC, Urine 0 - 5 0 to 5 /HPF 04/10/2021 4:11 PM EST [facility] Comment:This result was prev iously suppressed from the chart. Squamous Epithelial Cells 6 - 10(A) 0 to 5 /HPF 04/10/2021 4:11 PM EST [facility] Comment:This result was prev iously suppressed from the chart. Hyaline Casts 0 - 8 0 to 8 /LPF 04/10/2021 4:11 PM EST [facility] Comment:This result was prev iously suppressed from the chart. Bacteria, Urine Present Negative 04/10/2021 4:11 PM EST [facility] Comment:This result was prev iously suppressed from the chart. Urine Urine specimen obtained by clean catch procedure / Unknown Non-blood Collection / Unknown 04/10/2021 3:54 PM EST 04/10/2021 3:54 PM EST Narrative [facility] - 04/10/2021 4:11 PM EST Performed by manual method Lisa Carbone [facility] URINE ORDERABLES Final Result Performing Organization Address City/State/[facility] Co de Phone Number [facility] [address] [place] [address] * (ABNORMAL) CBC (04/10/2021 2:13 PM EST) WBC Count 8.79 3.70 - 10.30 10*3/uL LAB HEMATOLOGY METHOD 04/10/2021 2:30 PM EST [facility] RBC Count 4.99 3.90 - 5.20 10*6/uL LAB HEMATOLOGY METHOD 04/10/2021 2:30 PM EST [facility] HGB 13.4 11.2 - 15.7 g/dL LAB HEMATOLOGY METHOD 04/10/2021 2:30 PM EST [facility] HCT 41.8 34.0 - 45.0 % LAB HEMATOLOGY METHOD 04/10/2021 2:30 PM EST [facility] Platelet Count 356 155 - 369 10*3/uL LAB HEMATOLOGY METHOD 04/10/2021 2:30 PM EST [facility] MCV 84 79 - 98 fL LAB HEMATOLOGY METHOD 04/10/2021 2:30 PM EST [facility] MCH 26.9 26.0 - 32.0 pg LAB HEMATOLOGY METHOD 04/10/2021 2:30 PM EST [facility] MCHC 32.1 30.7 - 35.5 g/dL LAB HEMATOLOGY METHOD 04/10/2021 2:30 PM EST [facility] RDW 14.8(H) 11.5 - 14.5 % LAB HEMATOLOGY METHOD 04/10/2021 2:30 PM EST [facility] MPV 9.7 8.8 - 12.5 fL LAB HEMATOLOGY METHOD 04/10/2021 2:30 PM EST [facility] nRBC 0.0 <=0.0 per 100 WBCs LAB HEMATOLOGY METHOD 04/10/2021 2:30 PM EST [facility] Blood Venous blood specimen / Unknown Venipuncture / Unknown 04/10/2021 2:13 PM EST 04/10/2021 2:23 PM EST Lisa Carbone APRN LAB BLOOD ORDERABLES Final Result Performing Organization Address City/[facility] Co de Phone Number [facility] [address] [place] [address] * Lactic acid, venous (04/10/2021 2:13 PM EST) Lactate, Venous, Whole Blood 0.8 0.5 - 2.2 mmol/L LAB HEMATOLOGY METHOD 04/10/2021 2:35 PM EST [facility] Blood Venous blood specimen / Unknown Venipuncture / Unknown 04/10/2021 2:13 PM EST 04/10/2021 2:23 PM EST Lisaelbert Carbone [facility] BLOOD ORDERABLES Final Result Performing Organization Address City/[facility]/ZIP Co de Phone Number [facility] [address] [place] [address] * (ABNORMAL) Lipase (04/10/2021 2:13 PM EST) Lipase, Plasma 232(H) 19 - 63 U/L 04/10/2021 3:26 PM EST [facility] Blood Venous blood specimen / Unknown Venipuncture / Unknown 04/10/2021 2:13 PM EST 04/10/2021 2:23 PM EST us Lisa Aleman Tona [facility] BLOOD ORDERABLES Final Result [facility] [address] [place] [address] * (ABNORMAL) CMP (04/10/2021 2:13 PM EST) Glucose, Plasma 98 74 - 99 mg/dL 04/10/2021 3:26 PM EST [facility] BUN, Plasma 8 7 - 21 mg/dL 04/10/2021 3:26 PM EST [facility] Creatinine, Plasma 0.65 0.60 - 1.10 mg/dL 04/10/2021 3:26 PM EST [facility] BUN/Creatinine Ratio 12 04/10/2021 3:26 PM EST [facility] Sodium, Plasma 140 136 - 145 mmol/L 04/10/2021 3:26 PM [facility] Potassium, Plasma 4.3 3.7 - 4.8 mmol/L 04/10/2021 3:26 PM [facility] Chloride, Plasma 104 97 - 107 mmol/L 04/10/2021 3:26 PM EST [facility] CO2, Plasma 22 22 - 29 mmol/L 04/10/2021 3:26 PM EST [facility] Anion Gap 14 6 - 16 mmol/L 04/10/2021 3:26 PM EST [facility] Total Calcium, Plasma 9.3 8.9 - 10.2 mg/dL 04/10/2021 3:26 PM EST [facility] Total Protein 7.6 6.3 - 7.9 g/dL 04/10/2021 3:26 PM EST [facility] Albumin, Plasma 4.3 3.5 - 5.2 g/dL 04/10/2021 3:26 PM [facility] AST, Plasma 19 11 - 32 U/L 04/10/2021 3:26 PM EST [facility] ALT, Plasma 19 8 - 33 U/L 04/10/2021 3:26 PM EST [facility] Alkaline Phosphatase, Plasma 115(H) 35 - 104 U/L 04/10/2021 3:26 PM [facility] Total Bilirubin, Plasma 0.2 0.2 - 1.1 mg/dL 04/10/2021 3:26 PM EST [facility] eGFR >60 >60 mL/min/1.7 3m*2 04/10/2021 3:26 PM [facility] Comment:eGFR = estimated GFR ; eGFR units = mL/min/1.73 sq meters Chronic Kidney Disease is considered if eGFR <60 mL/min/1.73 sq meters Kidney failure is considered if eGFR is <15 mL/min/1.73 sq meters. eGFR assumes steady state plasma creatinine concentration; not applicable if renal function is rapidly changing or patient is on dialysis. eGFR, if AFR/AM >60 >60 mL/min/1.7 3m*2 04/10/2021 3:26 PM [facility] Comment:eGFR = estimated GFR [...] blood specimen / Unknown Venipuncture / Unknown 04/10/2021 2:13 PM EST 04/10/2021 2:23 PM EST [facility] BLOOD ORDERABLES Final Result [facility] [address] [place], [place] [id number] documented in this encounter Visit Diagnoses Diagnosis Chronic pancreatitis, unspecified pancreatitis type (CMS/HCC) Abdominal pain, epigastric Acute gastric erosion Chronic pancreatitis (CMS/HCC) Chronic pancreatitis Bipolar depression (CMS/HCC) Bipolar I disorder, most recent episode (or current) depressed, unspecified Gastric erosions Other specified gastritis without mention of hemorrhage Abdominal pain, epigastric Obesity (BMI 35.0-39.9 without comorbidity) Fibromyalgia Unspecified myalgia and myositis Anxiety Anxiety state, unspecified Intractable pain documented in this encounter Administered Medications Inactive Administered Medications - up to 3 most recent administrations Medication Order MAR Action Action Date Dose Rate Site acetaminophen (Tylenol) tablet 1,000 mg 1,000 mg, Oral, Every 6 hours scheduled, First dose on Thu04/10/21 at 1800, Until Discontinued, Routine Given 04/20/2021 8:58 AM EST 1,000 mg Given 04/19/2021 3:25 PM EST 1,000 mg Given 04/19/2021 9:36 AM EST 1,000 mg bisacodyl (Dulcolax) suppository 10 mg 10 mg, Rectal, Daily, First dose on Thu04/16/21 at 1215, Until Discontinued, Routine Given 04/16/2021 12:19 PM EST 10 mg bisacodyl (Dulcolax) suppository 10 mg 10 mg, Rectal, Daily, First dose on Thu04/19/21 at 0945, Until Discontinued, Routine enoxaparin (Lovenox) syringe 40 mg 40 mg, Subcutaneous, Every 24 hours scheduled, First dose on Thu04/10/21 at 1745, Until Discontinued, RoutineIndications:Prophylaxis of Venous Thromboembolism Given 04/19/2021 9:37 AM EST 40 mg Left Lower Abdomen Given 04/17/2021 8:11 AM EST 40 mg Ri ght Lower Abdomen Given 04/16/2021 7:47 AM EST 40 mg Le ft Lower Abdomen fentaNYL (Sublimaze) injection 50 mcg 50 mcg, Intravenous, Once, 1 dose, On Thu04/10/21 at 1355, STAT Given 04/10/2021 2:18 PM EST 50 mcg fentaNYL (Sublimaze) injection 50 mcg 50 mcg, Intravenous, Once, 1 dose, On Thu04/10/21 at 1520, STAT Given 04/10/2021 3:18 PM EST 50 mcg fluconazole (Diflucan) tablet 150 mg 150 mg, Oral, Weekly, First dose on Thu04/16/21 at 1300, Until Discontinued, Routine Given 04/16/2021 1:03 PM EST 150 mg HYDROmorphone (Dilaudid) injection 0.25 mg 0.25 mg, Intravenous, Every 2 hour PRN, Starting on Thu04/10/21 at 1739, Until Thu04/11/21 at 0949, Routine, severe breakthrough pain, stop after 48h Given 04/11/2021 6:12 AM EST 0.25 mg Given 04/11/2021 4:00 AM EST 0.25 mg Given 04/10/2021 11:39 PM EST 0.25 mg HYDROmorphone (Dilaudid) injection 0.5 mg 0.5 mg, Intravenous, Once, 1 dose, On 04/10/21 at 1610, STAT Given 04/10/2021 4:19 PM EST 0.5 mg HYDROmorphone (Dilaudid) injection 0.5 mg 0.5 mg, Intravenous, Every 2 hour PRN, Starting on Annabel 04/11/21 at 0949, Until 04/12/21 at 0809, Routine, severe breakthrough pain, stop after 48h Given 04/12/2021 6:51 AM EST 0.5 mg Given 04/12/2021 4:45 AM EST 0.5 mg Given 04/12/2021 1:50 AM EST 0.5 mg HYDROmorphone (Dilaudid) injection 0.5 mg 0.5 mg, Intravenous, Every 4 hours PRN, Starting on Thu04/12/21 at 0815, Until 04/13/21 at 0959, Routine, severe pain, severe breakthrough pain, stop after 48h Given 04/13/2021 6:54 AM EST 0.5 mg Given 04/13/2021 1:46 AM EST 0.5 mg Given 04/12/2021 8:34 PM EST 0.5 mg HYDROmorphone (Dilaudid) injection 0.5 mg 0.5 mg, Intravenous, Once, 1 dose, On Thu04/14/21 at 0915, Routine Given 04/14/2021 9:57 AM EST 0.5 mg HYDROmorphone (Dilaudid) injection 1 mg 1 mg, Intravenous, Every 4 hours PRN, Starting on 04/13/21 at 0959, Until Thu04/17/21 at 0642, Routine, severe pain, severe breakthrough pain, stop after 48h Given 04/16/2021 10:24 PM EST 1 mg Given 04/16/2021 6:23 PM EST 1 mg Given 04/16/2021 2:14 PM EST 1 mg HYDROmorphone (Dilaudid) injection 1 mg 1 mg, Intravenous, Once, 1 dose, On 04/13/21 at 1030, Routine Given 04/13/2021 10:21 AM EST 1 mg HYDROmorphone (Dilaudid) injection 1 mg 1 mg, Intravenous, Once, 1 dose, On Thu04/16/21 at 1215, Routine Given 04/16/2021 12:19 PM EST 1 mg HYDROmorphone (Dilaudid) injection 1 mg 1 mg, Intravenous, Once, 1 dose, On Thu04/17/21 at 0700, Routine Given 04/17/2021 6:45 AM EST 1 mg HYDROmorphone (Dilaudid) injection 1 mg 1 mg, Intravenous, Every 4 hours PRN, Starting on Thu04/17/21 at 0816, Until Thu04/18/21 at 0908, Routine, severe pain Given 04/18/2021 8:48 AM EST 1 mg Given 04/18/2021 4:26 AM EST 1 mg Given 04/17/2021 10:35 PM EST 1 mg HYDROmorphone (Dilaudid) tablet 2 mg 2 mg, Oral, Every 4 hours PRN, Starting on Thu04/18/21 at 2015, Until 04/20/21 at 1643, Routine, severe pain Given 04/20/2021 1:41 PM EST 2 mg Given 04/20/2021 8:56 AM EST 2 mg Given 04/19/2021 8:36 PM EST 2 mg hyoscyamine (Anaspaz,Levsin) tablet 0.125 mg 0.125 mg, Oral, 3 times daily, First dose on Thu04/16/21 at 1600, Until Discontinued, Routine Given 04/20/2021 8:57 AM EST 0.125 mg Given 04/19/2021 8:36 PM EST 0.125 mg Given 04/19/2021 6:40 PM EST 0.125 mg iohexol (OMNIPaque) 300 MG/ML injection 100 mL 100 mL, Intravenous, Once in imaging, 1 dose, Starting on Thu04/16/21 at 1630, Until Thu04/16/21 at 1733, Routine, Imaging Protocol Orders Given 04/16/2021 5:33 PM EST 100 mL iohexol (OMNIPaque) 9 MG/ML oral contrast 500 mL 500 mL, Oral, Once in imaging, 1 dose, Starting on Thu04/16/21 at 1630, Until Thu04/16/21 at 1732, Routine, Imaging Protocol Orders Given 04/16/2021 5:32 PM EST 500 mL lactated Ringer's infusion 100 mL/hr, Intravenous, Continuous, Starting on Thu04/10/21 at 1745, Until Annabel 04/18/21 at 1216, Routine Continued by Anesthesia 04/18/2021 10:56 AM EST 100 mL/hr New Bag 04/17/2021 10:35 PM EST 100 mL/hr 100 mL/hr New Bag 04/16/2021 11:06 PM EST 100 mL/hr 100 mL/hr lactated Ringer's infusion 100 mL/hr, Intravenous, Continuous, Starting on Thu04/18/21 at 1130, Until Thu04/19/21 at 0924, Routine New Bag 04/18/2021 9:09 PM EST 100 mL/hr 100 mL /hr New Bag 04/18/2021 1:00 PM EST 100 mL/hr 100 mL/hr lurasidone (Latuda) tablet 40 mg 40 mg, Oral, Nightly, First dose on Thu04/10/21 at 2215, Until Discontinued, Routine Given 04/19/2021 8:36 PM EST 40 mg Given 04/18/2021 9:23 PM EST 40 mg Given 04/17/2021 8:05 PM EST 40 mg metoclopramide (Reglan) injection 10 mg 10 mg, Intravenous, Every 6 hours, 4 doses, First dose on Thu04/19/21 at 0945, Last dose on Thu04/20/21 at 0345, Routine Given 04/19/2021 3:25 PM EST 10 mg Given 04/19/2021 9:36 AM EST 10 mg ocular lubricant (Artificial Tears) ophthalmic solution 1 drop 1 drop, Both Eyes, As needed, Starting on Thu04/17/21 at 1124, Until 04/20/21 at 1643, Routine, irritation ondansetron (Zofran) injection 4 mg 4 mg, Intravenous, Once, 1 dose, On Thu04/10/21 at 1355, STAT Given 04/10/2021 2:17 PM EST 4 mg ondansetron (Zofran) injection 4 mg 4 mg, Intravenous, Every 6 hours PRN, Starting on Thu04/10/21 at 1739, Until Annabel 04/11/21 at 0957, Routine, nausea, vomiting Given 04/11/2021 4:00 AM EST 4 mg Given 04/10/2021 6:04 PM EST 4 mg ondansetron (Zofran) injection 4 mg 4 mg, Intravenous, Every 6 hours PRN, Starting on Annabel 04/11/21 at 1644, Until 04/20/21 at 1643, Routine, nausea, vomiting Given 04/18/2021 7:39 AM EST 4 mg Given 04/17/2021 9:15 AM EST 4 mg Given 04/16/2021 8:30 PM EST 4 mg ondansetron ODT (Zofran-ODT) disintegrating tablet 4 mg 4 mg, Oral, Every 6 hours PRN, Starting on Annabel 04/11/21 at 0957, Until Annabel 04/11/21 at 1644, Routine, nausea, vomiting Given 04/11/2021 10:20 AM EST 4 mg oxyCODONE (Roxicodone) immediate release tablet 10 mg 10 mg, Oral, Once, 1 dose, On Annabel 04/11/21 at 1015, Routine Given 04/11/2021 10:20 AM EST 10 mg oxyCODONE (Roxicodone) immediate release tablet 15 mg 15 mg, Oral, Every 6 hours PRN, Starting on Thu04/11/21 at 0826, Until Annabel 04/11/21 at 0955, Routine, severe pain Given 04/11/2021 8:47 AM EST 15 mg oxyCODONE (Roxicodone) immediate release tablet 15 mg 15 mg, Oral, Every 4 hours PRN, Starting on Annabel 04/11/21 at 0956, Until Thu04/12/21 at 0808, Routine, severe pain Given 04/12/2021 8:03 AM EST 15 mg Given 04/12/2021 3:05 AM EST 15 mg Given 04/11/2021 10:01 PM EST 15 mg oxyCODONE (Roxicodone) immediate release tablet 15 mg 15 mg, Oral, Every 6 hours PRN, Starting on Thu04/12/21 at 0815, Until 04/13/21 at 1001, Routine, severe pain Given 04/13/2021 7:49 AM EST 15 mg Given 04/13/2021 1:46 AM EST 15 mg Given 04/12/2021 8:33 PM EST 15 mg oxyCODONE (Roxicodone) immediate release tablet 15 mg 15 mg, Oral, Every 4 hours PRN, Starting on 04/13/21 at 1001, Until Annabel 04/18/21 at 2016, Routine, moderate pain Given 04/18/2021 6:12 PM EST 15 mg Given 04/18/2021 12:34 PM EST 15 mg Given 04/18/2021 7:39 AM EST 15 mg pancrelipase (Creon) 85529 units capsule 2 capsule, Oral, 3 times daily with meals, First dose on Thu04/12/21 at 1230, Until Discontinued, Routine Given 04/20/2021 12:49 PM EST 2 capsule s Given 04/19/2021 5:00 PM EST 2 capsules Given 04/19/2021 3:25 PM EST 2 capsules pantoprazole (Protonix) EC tablet 40 mg 40 mg, Oral, Daily before breakfast, First dose on Thu04/12/21 at 0730, Until Discontinued, Routine Given 04/17/2021 8:10 AM EST 40 mg Given 04/16/2021 7:47 AM EST 40 mg Given 04/15/2021 9:41 AM EST 40 mg pantoprazole (Protonix) EC tablet 40 mg 40 mg, Oral, 2 times daily, First dose (after last modification) on Thu04/17/21 at 2100, Until Discontinued, Routine Given 04/20/2021 12:49 PM EST 40 mg Given 04/19/2021 8:36 PM EST 40 mg Given 04/19/2021 9:35 AM EST 40 mg polyethylene glycol (Miralax) packet 17 g 17 g, Oral, Daily, First dose on Thu04/13/21 at 1030, Until Discontinued, Routine Given 04/16/2021 7:47 AM EST 17 g Given 04/14/2021 8:08 AM EST 17 g Given 04/13/2021 10:21 AM EST 17 g polyethylene glycol (Miralax) packet 17 g 17 g, Oral, 2 times daily, First dose on Thu04/19/21 at 0945, Until Discontinued, Routine pregabalin (Lyrica) capsule 300 mg 300 mg, Oral, 2 times daily, First dose on Thu04/10/21 at 2215, Until Discontinued, Routine Given 04/20/2021 9:05 AM EST 300 mg Given 04/19/2021 8:35 PM EST 300 mg Given 04/19/2021 9:35 AM EST 300 mg promethazine (Phenergan) injection 12.5 mg 12.5 mg, Intravenous, Once, 1 dose, On Thu04/10/21 at 1610, STAT Given 04/10/2021 4:17 PM EST 12.5 mg promethazine (Phenergan) injection 12.5 mg 12.5 mg, Intravenous, Every 4 hours PRN, Starting on Thu04/10/21 at 1739, Until Annabel 04/11/21 at 0956, Routine, nausea, vomiting, Restricted to patients refractory to ondansetron. When rapid onset is required and oral is insufficient or NPO Given 04/10/2021 8:41 PM EST 12.5 mg promethazine (Phenergan) tablet 12.5 mg 12.5 mg, Oral, Every 6 hours PRN, Starting on Annabel 04/11/21 at 0957, Until 04/15/21 at 0844, Routine, nausea, vomiting Given 04/15/2021 5:13 AM EST 12.5 mg Given 04/14/2021 8:31 PM EST 12.5 mg Given 04/14/2021 8:09 AM EST 12.5 mg promethazine (Phenergan) tablet 25 mg 25 mg, Oral, Every 6 hours PRN, Starting on 04/15/21 at 0844, Until 04/20/21 at 1643, Routine, nausea, vomiting Given 04/19/2021 8:37 PM EST 25 mg Given 04/17/2021 1:51 PM EST 25 mg Given 04/16/2021 2:04 AM EST 25 mg senna (Senokot) tablet 17.2 mg 17.2 mg, Oral, Nightly, First dose on 04/13/21 at 2100, Until Discontinued, Routine Given 04/18/2021 9:25 PM EST 17.2 mg Given 04/17/2021 8:05 PM EST 17.2 mg Given 04/16/2021 8:32 PM EST 17.2 mg senna-docusate (Janis-Colace) 8.6-50 MG per tablet 2 tablet 2 tablet, Oral, 2 times daily, First dose on Thu04/19/21 at 0945, Until Discontinued, Routine Given 04/19/2021 9:36 AM EST 2 tablets sodium chloride 0.9 % infusion - 2,000mL 2,000 mL, Intravenous, Once, 1 dose, On Thu04/10/21 at 1355, STAT New Bag 04/10/2021 2:16 PM EST 2,000 mL sucralfate (Carafate) 1 GM/10ML suspension 1 g 1 g, Oral, Every 6 hours scheduled, First dose on Thu04/18/21 at 1230, Until Discontinued, Routine Given 04/20/2021 1:41 PM EST 1 g Given 04/20/2021 8:58 AM EST 1 g Given 04/20/2021 12:00 AM EST 1 g venlafaxine XR (Effexor-XR) 24 hr capsule 150 mg 150 mg, Oral, Daily with breakfast, First dose on Thu04/11/21 at 0800, Until Discontinued, Routine Given 04/19/2021 9:35 AM EST 150 mg Given 04/18/2021 8:00 AM EST 150 mg Given 04/17/2021 8:10 AM EST 150 mg documented in this encounter Active and Recently Administered Medications Times are shown in EST. Scheduled Medication Order 04/18/2021 04/19/2021 04/20/2021 acetaminophen (Tylenol) tablet 1,000 mg 1,000 mg, Oral, Every 6 hours scheduled, First dose on Thu04/10/21 at 1800, Until Discontinued, Routine 0336 (Given - Provider: Erik Keating)0800 (Given - Provider: Benjamin Colunga RN)1502 (Given - Provider: Benjamin Colunga RN)2125 (Given - Provider: Myra Moody RN) 0252 (Given - Provider: Lester Evans RN)0936 (Given - Provider: Gordon Leal, CHANDNI)1525 (Given - Provider: Gordon Leal, CHANDNI) 0000 (Return to Cabinet - Provider: Francis Morales, CHANDNI)0109 (Return to Cabinet - Provider: Francis Morales, CHANDNI)0858 (Given - Provider: Ashely Squires, RN)1401 (Not Given - Provider: Ashely Squires, CHANDNI - Reason: Other - Comment: Discharged) bisacodyl (Dulcolax) suppository 10 mg 10 mg, Rectal, Daily, First dose on Thu04/19/21 at 0945, Until Discontinued, Routine 1048 (Not Given - Provider: Gordon Leal RN - Reason: Patient in procedure) 1124 (Not Given - Provider: Ashely Squires, RN - Reason: Patient/family refused) enoxaparin (Lovenox) syringe 40 mg 40 mg, Subcutaneous, Every 24 hours scheduled, First dose on Thu04/10/21 at 1745, Until Discontinued, Routine 0900 (Dose Auto Held - Provider: Abel Valdez MD) 0819 (Unheld by provider - Provider: Roderick Kim MD)0937 (Given - Provider: Gordon Leal, RN) 0857 (Not Given - Provider: Ashely Squires, RN - Reason: Patient/family refused) fluconazole (Diflucan) tablet 150 mg 150 mg, Oral, Weekly, First dose on Thu04/16/21 at 1300, Until Discontinued, Routine hyoscyamine (Anaspaz,Levsin) tablet 0.125 mg 0.125 mg, Oral, 3 times daily, First dose on Thu04/16/21 at 1600, Until Discontinued, Routine 0800 (Given - Provider: Benjamin Colunga RN)1802 (Self Administered Via Pump - Provider: Benjamin Colunga RN)2123 (Given - Provider: Myra Moody RN) 0936 (Given - Provider: Gordon Leal RN)1840 (Given - Provider: Gordon Leal, CHANDNI)2036 (Given - Provider: Francis Morales, CHANDNI) 0857 (Given - Provider: Ashely Squires, RN)1600 (Canceled Entry - Provider: Automatic Discharge Provider - Comment: Automatically canceled at discontinue of medication order) lurasidone (Latuda) tablet 40 mg 40 mg, Oral, Nightly, First dose on Thu04/10/21 at 2215, Until Discontinued, Routine 2122 (Given - Provider: Myra Moody RN) 2035 (Given - Provider: Francis Morales, CHANDNI) metoclopramide (Reglan) injection 10 mg 10 mg, Intravenous, Every 6 hours, 4 doses, First dose on Thu04/19/21 at 0945, Last dose on Thu04/20/21 at 0345, Routine 0936 (Given - Provider: Gordon Leal RN)1525 (Given - Provider: Gordon Leal, CHANDNI) 0109 (Return to Cabinet - Provider: Francis Morales, RN)0613 (Return to Cabinet - Provider: Francis Morales, CHANDNI) pancrelipase (Creon) 57917 units capsule 2 capsule, Oral, 3 times daily with meals, First dose on Thu04/12/21 at 1230, Until Discontinued, Routine 0900 (Not Given - Provider: Afia Azar - Reason: Other - Comment: Held for procedure b/c NPO)1234 (Given - Provider: Benjamin Colunga, CHANDNI)1801 (Self Administered Via Pump - Provider: Benjamin Colunga RN) 0936 (Given - Provider: Gordon Leal, CHANDNI)1525 (Given - Provider: Gordon Leal, CHANDNI)1700 (Given - Provider: Gordon Leal, CHANDNI) 0900 (Not Given - Provider: Ashely Squires RN - Reason: Patient/family refused - Comment: Patient refused during med pass)1249 (Given - Provider: Ashely Squires RN) pantoprazole (Protonix) EC tablet 40 mg 40 mg, Oral, 2 times daily, First dose (after last modification) on Thu04/17/21 at 2100, Until Discontinued, Routine 0800 (Given - Provider: Benjamin Colunag RN)2123 (Given - Provider: Myra Moody RN) 0935 (Given - Provider: Gordon Leal, CHANDNI)2036 (Given - Provider: Francis Morales, CHANDNI) 1249 (Given - Provider: Ashely Squires, RN) polyethylene glycol (Miralax) packet 17 g 17 g, Oral, 2 times daily, First dose on Thu04/19/21 at 0945, Until Discontinued, Routine 1049 (Not Given - Provider: Gordon Leal RN - Reason: Patient/family refused)2108 (Not Given - Provider: Francis Morales RN - Reason: Patient/family refused) 1158 (Not Given - Provider: Ashely Squires RN - Reason: Patient/family refused) pregabalin (Lyrica) capsule 300 mg 300 mg, Oral, 2 times daily, First dose on Thu04/10/21 at 2215, Until Discontinued, Routine 0800 (Given - Provider: Benjamin Colunga RN)2125 (Given - Provider: Myra Moody RN) 0935 (Given - Provider: Gordon Leal RN)203 (Given - Provider: Francis Morales RN) 0905 (Given - Provider: Ashely Squires, RN) senna (Senokot) tablet 17.2 mg (CANCELED) 17.2 mg, Oral, Nightly, First dose on 04/13/21 at 2100, Until Discontinued, Routine 2124 (Given - Provider: Myra Moody RN) senna-docusate (Janis-Colace) 8.6-50 MG per tablet 2 tablet 2 tablet, Oral, 2 times daily, First dose on 04/19/21 at 0945, Until Discontinued, Routine 0936 (Given - Provider: Gordon Leal RN)210 (Not Given - Provider: Francis Morales RN - Reason: Patient/family refused) 1123 (Not Given - Provider: Ashely Squires RN - Reason: Patient/family refused) sucralfate (Carafate) 1 GM/10ML suspension 1 g 1 g, Oral, Every 6 hours scheduled, First dose on Annabel 04/18/21 at 1230, Until Discontinued, Routine 1234 (Given - Provider: Benjamin Colunga RN)1801 (Self Administered Via Pump - Provider: Benjamin Colunga RN) 0224 (Not Given - Provider: Lester Evans RN - Reason: Other)0634 (Given - Provider: Lester Evans, RN)1525 (Given - Provider: Gordon Leal RN)1841 (Given During Downtime - Provider: Grodon Leal RN)2038 (Given - Provider: Francis Morales, CHANDNI) 0000 (Given - Provider: Francis Morales, RN)0858 (Given - Provider: Ashely Squires, RN - Comment: Patient sleeping)1341 (Given - Provider: Ashely Squires, RN) venlafaxine XR (Effexor-XR) 24 hr capsule 150 mg (CANCELED) 150 mg, Oral, Daily with breakfast, First dose on Annabel 04/11/21 at 0800, Until Discontinued, Routine 0800 (Given - Provider: Benjamin Colunga RN) 0935 (Given - Provider: Gordon Leal, CHANDNI) Continuous Medication Order 04/18/2021 04/19/2021 04/20/2021 lactated Ringer's infusion (CANCELED) 100 mL/hr, Intravenous, Continuous, Starting on Thu04/10/21 at 1745, Until Annabel 04/18/21 at 1216, Routine 1056 (Continued by Anesthesia - Provider: Christopher Magallanes CRNA)1117 (Stopped - Provider: Christopher Magallanes CRNA) lactated Ringer's infusion (CANCELED) 100 mL/hr, Intravenous, Continuous, Starting on Annabel 04/18/21 at 1130, Until Thu04/19/21 at 0924, Routine 1300 (New Bag - Provider: Benjamin Colunga, CHANDNI)2109 (New Bag - Provider: Lester Evans RN) PRN Medication Order 04/18/2021 04/19/2021 04/20/2021 HYDROmorphone (Dilaudid) injection 1 mg (CANCELED) 1 mg, Intravenous, Every 4 hours PRN, Starting on Thu04/17/21 at 0816, Until Annabel 04/18/21 at 0908, Routine, severe pain 0426 (Given - Provider: Erik Keating)0848 (Given - Provider: Benjamin Colunga, CHANDNI) HYDROmorphone (Dilaudid) tablet 2 mg 2 mg, Oral, Every 4 hours PRN, Starting on Annabel 04/18/21 at 2015, Until 04/20/21 at 1643, Routine, severe pain 2125 (Given - Provider: Myra Moody RN) 0252 (Given - Provider: Lester Evans RN)2036 (Given - Provider: Francis Morales, CHANDNI) 0856 (Given - Provider: Ashely Squires, RN)1341 (Given - Provider: Ashely Squires, RN) ocular lubricant (Artificial Tears) ophthalmic solution 1 drop 1 drop, Both Eyes, As needed, Starting on Thu04/17/21 at 1124, Until 04/20/21 at 1643, Routine, irritation ondansetron (Zofran) injection 4 mg 4 mg, Intravenous, Every 6 hours PRN, Starting on Annabel 04/11/21 at 1644, Until 04/20/21 at 1643, Routine, nausea, vomiting 0739 (Given - Provider: Benjamin Colunga, RN)2130 (Not Given - Provider: Myra Moody RN - Reason: Patient/family refused) 0117 (Return to [facility] - Provider: Francis Morales, RN) oxyCODONE (Roxicodone) immediate release tablet 15 mg (CANCELED) 15 mg, Oral, Every 4 hours PRN, Starting on 04/13/21 at 1001, Until Annabel 04/18/21 at 2016, Routine, moderate pain 0335 (Given - Provider: Erik Keating)0739 (Given - Provider: Benjamin Colunga, RN)1234 (Given - Provider: Benjamin Colunga, RN)1812 (Given - Provider: Benjamin Colunga RN) promethazine (Phenergan) tablet 25 mg 25 mg, Oral, Every 6 hours PRN, Starting on 04/15/21 at 0844, Until 04/20/21 at 1643, Routine, nausea, vomiting 2129 (Not Given - Provider: Myra Moody RN - Reason: Patient/family refused) 2036 (Given - Provider: Francis Morales, RN) documented in this encounter Additional Health Concerns Assessment Noted Time A fall risk assessment has been complete d for the patient 11/21/2020 2:30 PM EDT documented as of this encounter Care Teams Cabinet Maker Relationship Specialty Start Date End Date Elmo Escobar MD PCP - General 10/18/20 01/05/23 documented as of this encounter
--- OUTSIDE RECORDS SUMMARY | 2024-02-03 15:27 | XMS_ITS | Encounter Summary ---
Author Organization Healthcare Address [address] [place] [address] Care Team Providers Care Burn Center Nurse Name Role Phone Elmo Escobar MD Primary Care Provider [phone] Reason for Visit * Auth/Cert Specialty Diagnoses / Procedures Referred By Contac t Referred To Contact Diagnoses Acute on chronic pancreatitis (CMS/HCC) Other acute gastritis without hemorrhage Carlton Grajeda MD [address] [place] [address] Phone: tel: fax: [facility] S Inpatient [address] [place] [address] Phone: tel: Referral ID Status Reason Start Date Expiration Date Visits Re quested Visits Authorized [id number] 1 1 Encounter Details Date Type Department Care Team (Late st Contact Info) Description 03/30/2021 4:15 AM EST Ancillary Procedure IV TEAM [address] [facility], [address]nd Floor, [address] [place] [id number] Social History Tobacco Use Types Packs/Day Years [...] have Coronavirus / COVID-19? No / Unsure 03/23/2021 1:26 PM EST documented as of this encounter Plan of Treatment Not on file documented as of this encounter Procedures Procedure Name Priority Date/Time Associated Diagnosis Comments US GUIDED IV INSERTION Routine 03/30/2021 4:11 AM EST documented in this encounter Results * US Guided IV Insertion (03/30/2021 4:11 AM EST) Narrative SYSTEMGENERATED, 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 - 03/30/2021 4:11 AM EST These images were captured for the placement of an US-guided IV or PICC line placement. us Kena Powers DO IMG US PROCEDURES Final Result documented in this encounter Visit Diagnoses Not on filedocumented in this encounter Additional Health Concerns Assessment Noted Time A fall risk assessment has been complete d for the patient 11/21/2020 2:30 PM EDT documented as of this encounter Care Teams Burn Center Nurse Relationship Specialty Start Date End Date Elmo Escobar MD PCP - General 10/18/20 01/05/23 documented as of this encounter
--- OUTSIDE RECORDS SUMMARY | 2024-02-03 15:27 | XMS_ITS | Encounter Summary ---
Author Organization Healthcare Address [address] [place] [address] Care Team Providers Care Photographic Equipment Mechanic Name Role Phone Elmo Escobar MD Primary Care Provider [phone] Reason for Visit * Auth/Cert Specialty Diagnoses / Procedures Referred By Contac t Referred To Contact Diagnoses Chronic pancreatitis, unspecified pancreatitis type (CMS/HCC) Trevon Faust MD [address] [place] [address] Phone: tel: fax: [facility] [address] [place] [address] Phone: tel: Referral ID Status Reason Start Date Expiration Date Visits Re quested Visits Authorized [id number] 1 1 Encounter Details Date Type Department Care Team (Late st Contact Info) Description 04/18/2021 10:56 AM EST Anesthesia Event [facility] [address] [place] [address] Edenilson Gonzalez MD [address] [place] [address] Anesthesia Record Procedure Summary Procedure Name Responsible Anesthesiologist Anesthesia Start Time Anesthesia Stop Time EGD Edenilson Gonzalez MD 04/18/21 1056 2 1117 Events Date Time Event Comment 04/18/2021 1054 1056 An Start 1056 An Start Data 1056 [place] Pt on 4L nc wit h etc02 vss 1057 In Room 1058 An Induction The patient was reevaluated immediately before moderate or deep sedation use and before anesthesia induction. 1100 Anesthesia Ready 1101 Proc Start 1111 Proc Fin 1113 Out of Room 1114 an stop data 1117 Handoff to Receiving I compl eted my handoff to the receiving clinician during which we: 1. Identified the patient 2. Identified the responsible provider 3. Reviewed the pertinent medical history 4. Discussed the surgical course 5. Reviewed intra-op anesthesia management and issues during anesthesia 6. Set expectations for post-procedure period 7. Allowed opportunity for questions and acknowledgement of understanding. 1117 An Stop Meds Name Total propofol (Diprivan) infusion 10 mg/mL 36 5.2 mg midazolam (Versed) injection 1 mg/mL 2 m g lidocaine PF (Xylocaine-MPF) 2% 100 mg lactated Ringer's infusion 500 mL * Agents Name N2O Inspired N2O * Blood No blood administrations on file. Lines, Drains, and Airways Type Details Placement Removal Wound 12/04/20; 1451; Y; Pretibial; Right; Round, approx 3in across. Patient states it is a fungal infection; 03/20/22; 2120; Healed (not a open area-skin discoloration, states she had skin removed but it is a scar) 12/04/20 1451 by Sherrill Najera RN 03/20/222120 by Suzi Joseph RN Wound 02/04/21; 0130; Y; S ternum; Lower; 04/30/21; 1155; Healed 02/04/21 0130 by Hosea Carranza 04/30/21 1155 by Gela Joseph RN Wound 03/27/21; 0800; Y; Y es; Other; Nose; 04/30/21; 1155; Healed 03/27/21 0800 by Susan Russ RN 04/30/21 1155 by Gela Joseph RN Peripheral IV Placement Date: 03/26 09/13; Placement Time: 1620 (created via procedure documentation); Catheter Size: (20g/2.25 in AccuCath); Orientation: Right, Upper (cephalic vein); Location: Arm; Site Prep: Alcohol, Chlorhexidine ; Technique: Ultrasound guidance; Insertion Attempts: 1; Removal Date: 04/21/21; Removal Time: 1443 04/11/21 1620 by Citlali Umana RN 04/21/21 1443 by Discharge Provider, Automatic documented in this encounter Social History Tobacco [...] Miscellaneous Notes * Anesthesia Postprocedure Evaluation - Christopher Magallnaes CRNA - 04/18/2021 11:17 AM EST Patient: Lila Mcnally Anesthesia Type: general Vitals Value Taken Time BP 102/63 04/18/21 1115 Temp 35.7 04/18/21 1117 Pulse 108 04/18/21 1116 Resp 16 04/18/21 1117 SpO2 96 % 04/18/21 1116 Vitals shown include unvalidated device data. Anesthesia Post Evaluation Patient location during evaluation: PACU Level of consciousness: baseline Pain management: adequate (pain score 0-3) Airway patency: natural airway Cardiovascular status: acceptable Respiratory status: acceptable Hydration status: acceptable No complications documented. * Anesthesia Preprocedure Evaluation - Edenilson Gonzalez MD - 04/18/2021 10:44 AM EST Patient: Lila Mcnally Procedure Information Date/Time: 04/18/21 1020 Scheduled providers: Edenilson Gonzalez MD; Chrisotpher Magallanes CRNA; Sharif Corcoran MD Procedure: EGD Location: [facility] 35 yo F smoker with a hx of anxiety, bipolar depression, fibromyalgia, GERD, and acute on chronic pancreatitis presents for EGD. Relevant Problems GI (+) Class 1 obesity in adult (+) Duodenal ulcer (+) GERD (gastroesophageal reflux disease) Clinical information reviewed: Allergies PMH, PSH, FH, ROS all reviewed OB Status NPO Status Date of Last Liquid: 04/17/21 Time of Last Liquid: 2329 Date of Last Solid: 04/17/21 Time of Last Solid: 2329 Last Intake Type: Clear fluids Physical Exam Airway Mallampati: III Mouth opening: normal TM distance: >3 FB Neck ROM: full Cardiovascular - normal exam Dental - normal exam Pulmonary - normal exam Neurological - normal exam Oriented: normal to time, normal to place and normal to person and oriented to person, place and time Skin - normal exam Musculoskeletal Extremities Anesthesia Plan ASA 3 Anesthesia technique(s) discussed with the patient/family: General Anesthesia plan agreed upon was: general Induction planned: intravenous Airway management planned: nasal cannula Anesthetic plan and risks discussed with patient (Patient could not urinate for a preganancy test. She was adamant that she could not be and was counseled on the risks. She acknowledged thisand agreed to proceed.). Plan discussed with HEADING MATCHER AND ASSEMBLER. Additional Equipment Requests documented in this encounter Plan of Treatment Not on file documented as of this encounter Visit Diagnoses Not on filedocumented in this encounter Administered Medications Inactive Administered Medications - up to 3 most recent administrations Medication Order MAR Action Action Date Dose Rate Site lactated Ringer's infusion 100 mL/hr, Intravenous, Continuous, Starting on 04/10/21 at 1745, Until Annabel 04/18/21 at 1216, Routine Continued by Anesthesia 04/18/2021 10:56 AM EST 100 mL/hr New Bag 04/17/2021 10:35 PM EST 100 mL/hr 100 mL/hr New Bag 04/16/2021 11:06 PM EST 100 mL/hr 100 mL/hr lidocaine PF (Xylocaine) 2 % injection Intravenous, As needed, Starting on Annabel 04/18/21 at 1100, Until Annabel 04/18/21 at 1117, Routine, Anesthesia Intraprocedure Given 04/18/2021 11:00 AM EST 100 mg midazolam (Versed) injection Intravenous, As needed, Starting on Annabel 04/18/21 at 1058, Until Annabel 04/18/21 at 1117, Routine, Anesthesia Intraprocedure Given 04/18/2021 10:58 AM EST 2 mg propofol (Diprivan) infusion 10 mg/mL Intravenous, Continuous PRN, Starting on Annabel 04/18/21 at 1058, Until Annabel 04/18/21 at 1117, Routine New Bag 04/18/2021 10:58 AM EST 250 mcg/kg/min 136.95 mL/hr documented in this encounter Additional Health Concerns Assessment Noted Time A fall risk assessment has been complete d for the patient 11/21/2020 2:30 PM EDT documented as of this encounter Care Teams Photographic Equipment Mechanic Relationship Specialty Start Date End Date Elmo Escobar MD PCP - General 10/18/20 01/05/23 documented as of this encounter
--- OUTSIDE RECORDS SUMMARY | 2024-02-03 15:27 | XMS_ITS | Encounter Summary ---
Author Organization Healthcare Address [address] [place] [address] Care Team Providers Care Psychologist Educational Name Role Phone Elmo Escobar MD Primary Care Provider [phone] Reason for Visit * Reason Comments Abdominal Pain * Auth/Cert Specialty Diagnoses / Procedures Referred By Contac t Referred To Contact Diagnoses Acute on chronic pancreatitis (CMS/HCC) Other acute gastritis without hemorrhage Carlton Grajeda MD [address] [place] [id number] Phone: tel: fax: [facility] [address] [place] [address] Phone: tel: Referral ID Status Reason Start Date Expiration Date Visits Re quested Visits Authorized [id number] 1 1 Encounter Details Date Type Department Care Team (Latest Contact Info) Description 03/23/2021 1:28 PM EST - 03/31/2021 4:32 PM [facility] Hospital Encounter [facility] [address] [place] [address] Napoleon Squires MD [address] [place] [address] Michelle Perez MD [address] [place] [address] Carlton Grajeda MD [address] [place] [address] Delbert Horne MD [address] [place] [address] Kena Sanders DO [address] [place] [address] Acute on chronic pancreatitis (CMS/HCC) (Primary Dx); Other acute gastritis without hemorrhage Discharge Disposition: Home or Self Care Social [...] Sign Reading Time Taken Comments Blood Pressure 123/84 03/31/2021 11:46 AM EST Pulse 79 03/31/2021 11:46 AM EST Temperature 36.7 ??C (98.1 ??F) 03/31/2021 1 1:46 AM EST Respiratory Rate 16 03/31/2021 11:4 6 AM EST Oxygen Saturation 99% 03/31/2021 11: 46 AM EST Inhaled Oxygen Concentration - - Weight 95.7 kg (210 lb 15.7 oz) 03/23/2021 1:26 PM EST Height 165.1 cm (5' 5 ) 03/23/2021 1:26 PM EST Body Mass Index 35.11 03/23/2021 1:26 PM EST documented in this encounter Discharge Instructions * Discharge Instructions* Kena Sanders DO - 03/31/2021 1:41 PM EST Images from the original note were not included. Patient Education It is important to follow up with your PCP this week for a pain management plan. You have been prescribed Zofran to take before meals as needed. Protonix to take daily for 6 weeks. Also, you have Nix for lice treatment. 5 Steps for Eating Healthier Changing the way you eat can improve your health. It can lower your cholesterol and blood pressure,and help you stay at a healthy weight. Your diet doesn???t have to be bland and boring to be healthy. Just watch your calories and follow these steps: Step 1. Eat fewer unhealthy fats ?? Choose more fish and lean meats instead of fatty cuts of meat. ?? Skip butter and lard, and use less margarine. ?? Pass on foods that have palm, coconut, or hydrogenated oils. ?? Eat fewer high-fat dairy foods like cheese, ice cream, and whole milk. ?? Get a heart-healthy cookbook and try some low-fat recipes. Step 2.??Go light on salt ?? Keep the saltshaker off the table. ?? Limit high-salt ingredients, such as soy sauce, bouillon, and garlic salt. ?? Instead of adding salt when cooking, season your food with herbs and flavorings. Try lemon, garlic, and onion, or salt-free herb seasonings. ?? Limit convenience foods, such as boxed or canned foods and restaurant food. ?? Read food labels and choose lower-sodium options. Step 3. Limit sugar ?? Pause before you add sugars to pancakes, cereal, coffee, or tea. This includes white and brown table sugar, syrup, honey, and molasses. Cut your usual amount by half. ?? Use non-sugar sweeteners. Stevia, aspartame, and sucralose can satisfy a sweet tooth without adding calories. ?? Swap out sugar-filled soda and other drinks. Buy sugar-free or low-calorie beverages. Remember water is always the best choice. ?? Read labels and choose foods with less added sugar. Keep in mind that dairy foods and foods withfruit will have some natural sugar. ?? Cut the sugar in recipes by 1/3 to 1/2. Boost the flavor with extracts like almond, vanilla, or orange. Or add spices such as cinnamon or nutmeg. Step 4. Eat??more fiber ?? Eat fresh fruits and vegetables every day. ?? Boost your diet with whole grains. Go for oats, whole-grain rice, and bran. ?? Add beans and lentils to your meals. ?? Drink more water to match your fiber increase to help prevent constipation. Step 5. Pay attention to serving sizes ?? Remember that a serving size is a standard measurement. It will let you track the amount of fat,calories, and other nutrients in the food you eat. ?? Read the Nutrition Facts label on packaged foods to learn their serving sizes. ?? Use serving sizes to assess how much food you put on your plate. Pay attention to your portions.How many servings are you eating? ?? Keep in mind that your needs may change if you???re more active or less active, or if you have other factors that change your calorie needs. ?? Use your hand to help you measure serving sizes. For example: ? 1 teaspoon: This is about the size of the first joint of your thumb. ? 1 tablespoon: This is about the size of the first 2 joints of your thumb. ? 1 ounce: This is about what you can fit in your cupped hand. ? 2 to 3 ounces: This is about size of the palm of your hand. ? ?? cup: This is also about what you can fit in your cupped hand. ? 1 cup: This is about the size of your fist. [employer] last reviewed this educational content on 08/24/2019 ?? 9418-7275 [employer]. All rights reserved. This information is not intended as a substitute for professional medical care. Always follow your healthcare professional's instructions. * Attachments The following attachments cannot be sent through Care Everywhere. * Pancreatitis, Chronic, Discharge Instructions for ([place]) documented in this encounter Medications at Time of Discharge permethrin (Nix) 1 % liquid Apply 1 application topically 1 (one) time for 1 dose. 120 mL 03/31/2021 03/31/19 22 acetaminophen (Tylenol) 500 MG tablet Take 1,000 mg by mouth every 6 (six) hours if needed for mild pain. 07/25/19 23 ascorbic acid (Vitamin C) 250 MG tablet Take 1 tablet (250 mg total) by mouth 1 (one) time each day. 30 tablet 11 02/11/2021 04/24/19 22 Cholecalciferol (VITAMIN D3 PO) Take 1 tablet by mouth 1 (one) time each day. 04/24/19 22 Cyanocobalamin (VITAMIN B-12 PO) Take 1 tablet by mouth 1 (one) time each day. 04/24/19 22 Latuda 40 MG tablet Take 40 [...] 1 tablet (8 mg total) by mouth 3 (three) times a day before meals for 7 days. 20 tablet 03/31/2021 04/20/19 22 oxyCODONE (Roxicodone) 15 MG immediate release tablet Take 1 tablet (15 mg total) by mouth every 4 (four) hours if needed for severe pain for up to 3 days. 18 tablet 03/31/2021 04/11/19 22 pancrelipase, Tyg-Mqpu-Niuz, (Creon) [id number] units capsule Take 2 capsules by mouth 3 (three) times a day with meals. 03/20/19 23 pantoprazole (Protonix) 40 MG EC tablet Take 1 tablet (40 mg total) by mouth 1 (one) time each day before breakfast. Do not crush, chew, or split. 30 tablet 04/01/2021 04/20/19 22 pregabalin (Lyrica) 300 MG capsule Take 300 mg by mouth 2 (two) times a day. 04/25/19 22 venlafaxine XR (Effoxor-XR) 150 MG 24 hr capsule Take 150 mg by mouth 1 (one) time each day. 07/07/2020 03/20/19 23 documented as of this encounter Miscellaneous Notes * Discharge Summary - Kena Sanders DO - 03/31/2021 1:41 PM EST Images from the original note were not included. Hospitalization Admit Date/Time: 03/23/2021 1:28 PM Admitting Attending: Carlton Grajeda Discharge Date: 03/31/2021 Discharge Attending Physician: Kena Sanders Do PCP name and Address: Elmo Escobar MD [address] [place] [address] / [place] [address] Referring provider name and address: No referring provider defined for this encounter. Chief Concern, Brief History of Present Illness, and Hospital Course Rosibel Gayle is a 35 y.o. female - Hx of ETOH induced chronic pancreatitis, fibromyalgia, Bipolar disorder, obesity- who is being admitted through ED with 2-day of worsening LUQ abdominal pain. The patient reports having been diagnosed with acute pancreatitis for the 1st time around 7 years ago that has progressed to chronic pancreatitis since then. At baseline, she reports continued dull epigastric abdominal pain that is 2 to 3/10 in intensity with associated diarrhea. Two days ago, she had worsening stabbing left upper quadrant abdominal pain radiating to the back. This is associated with nausea but no vomiting. No change in her chronic diarrhea. No associated fever. The patient reports the pain to be worse with trying to eat or drink. She attempted to relieve the pain by heat packs, Tylenol, and ibuprofen without success. Thus she came into the emergency room for further evaluation. The patient states that she has stopped drinking alcohol since she was diagnosed with pancreatitis,last alcohol drink was more than 6 months ago. She admits to smoking marijuana, stopped around a month ago. No reported hematemesis or melena. No reported dysuria or frequency. She lost 30 lb within the past 6 months, unintentional. She just completed her period. While inpatient she had difficult to treat pain and required Ketamine therapy to wean her off of dilaudid and oxy ER. She did have success eating if she took Zofran before meals. Her breast mass that was noticed on imaging has been previously worked up as an outpatient. She had scalp itching this morning that is concerning for lice, on exam I did note nits. Will prescribe treatment at discharge. This AM her pain was controlled and she was tolerating a diet. Surgeries and Procedures Medication List .. acetaminophen 500 MG tablet Commonly known as: Tylenol Take 1,000 mg by mouth every 6 (six) hours if needed for mild pain. ascorbic acid 250 MG tablet Commonly known as: Vitamin C Take 1 tablet (250 mg total) by mouth 1 (one) time each day. Latuda 40 MG tablet Generic drug: lurasidone TAKE 1 TABLET BY MOUTH IN THE EVENING WITH FOOD LIDODERM EX Apply 1 patch topically if needed (shoulder). [...] 1 tablet (8 mg total) by mouth 3 (three) times a day before meals for 7 days. oxyCODONE 15 MG immediate release tablet Commonly known as: Roxicodone Take 1 tablet (15 mg total) by mouth every 4 (four) hours if needed for severe pain for up to 3 days. pancrelipase (Ifl-Zsgq-Pgqa) [id number] units capsule Commonly known as: Creon Take 2 capsules by mouth 3 (three) times a day with meals. pantoprazole 40 MG EC tablet Commonly known as: Protonix Take 1 tablet (40 mg total) by mouth 1 (one) time each day before breakfast. Do not crush, chew, orsplit. Start taking on: April 01, 2021 permethrin 1 % liquid Commonly known as: Nix Apply 1 application topically 1 (one) time for 1 dose. pregabalin 300 MG capsule Commonly known as: Lyrica Take 300 mg by mouth 2 (two) times a day. venlafaxine XR 150 MG 24 hr capsule Commonly known as: Effoxor-XR TAKE 1 CAPSULE BY MOUTH ONCE DAILY IN THE MORNING VITAMIN B-12 PO Take 1 tablet by mouth 1 (one) time each day. VITAMIN D3 PO Take 1 tablet by mouth 1 (one) time each day. Where to Get Your Medications These medications were sent to [facility] [place] [id number] ?? ondansetron ODT 8 MG disintegrating tablet ?? oxyCODONE 15 MG immediate release tablet ?? pantoprazole 40 MG EC tablet ?? permethrin 1 % liquid Discharge Diagnosis Medical Problems Active and Resolved Hospital Problems Hospital * (Principal) Acute on chronic pancreatitis (CMS/HCC) Bipolar depression (CMS/HCC) Fibromyalgia Tobacco abuse Abdominal pain, epigastric Obesity (BMI 35.0-39.9 without comorbidity) Lice infestation Post Discharge Instructions It is important to follow up with your PCP this week for a pain management plan. You have been prescribed a 3 day course of Oxy 15 mg Q4 PRN. You have been prescribed Zofran to take before meals as needed. Protonix to take daily for 6 weeks. Also, you have Nix for lice treatment. Outpatient Follow-Up No future appointments. Test Results Pending At Discharge None Pertinent [...] Abdomen is soft. There is no mass. Hernia: No hernia is present. Musculoskeletal: General: No swelling or tenderness. Normal range of motion. Cervical back: Normal range of motion. Skin: General: Skin is warm and dry. Neurological: General: No focal deficit present. Mental Status: She is alert. Psychiatric: Mood and Affect: Mood normal. Behavior: Behavior normal. Thought Content: Thought content normal. Judgment: Judgment normal. Discharge Disposition/Condition Disposition: Home Condition: Stable (s/sx potential problems absent or manageable) I spent >30 minutes of patient care and instruction time in preparation for this discharge. * Hospital Course - Kena Sanders DO - 03/31/2021 1:40 PM EST Rosibel Gayle is a 35 y.o. female - Hx of ETOH induced chronic pancreatitis, fibromyalgia, Bipolar disorder, obesity- who is being admitted through ED with 2-day of worsening LUQ abdominal pain. The patient reports having been diagnosed with acute pancreatitis for the 1st time around 7 years ago that has progressed to chronic pancreatitis since then. At baseline, she reports continued dull epigastric abdominal pain that is 2 to 3/10 in intensity with associated diarrhea. Two days ago, she had worsening stabbing left upper quadrant abdominal pain radiating to the back. This is associated with nausea but no vomiting. No change in her chronic diarrhea. No associated fever. The patient reports the pain to be worse with trying to eat or drink. She attempted to relieve the pain by heat packs, Tylenol, and ibuprofen without success. Thus she came into the emergency room for further evaluation. The patient states that she has stopped drinking alcohol since she was diagnosed with pancreatitis,last alcohol drink was more than 6 months ago. She admits to smoking marijuana, stopped around a month ago. No reported hematemesis or melena. No reported dysuria or frequency. She lost 30 lb within the past 6 months, unintentional. She just completed her period. While inpatient she had difficult to treat pain and required Ketamine therapy to wean her off of dilaudid and oxy ER. She did have success eating if she took Zofran before meals. Her breast mass that was noticed on imaging has been previously worked up as an outpatient. She had scalp itching this morning that is concerning for lice, on exam I did note nits. Will prescribe treatment at discharge. This AM her pain was controlled and she was tolerating a diet. * Procedures - Asiya Stark RN - 03/30/2021 2:27 PM ESTAssociated Order(s): Insert peripheral IV Insert peripheral IV Date/Time: 03/30/2021 2:27 PM Performed by: Asiya Stark RN Authorized by: Kena Sanders DO Hand hygiene: Hand hygiene performed prior to insertion Inserted using aseptic techniques: Yes Preparation: Skin prepped with chg Orientation: Right and upper Location: Arm Catheter placed: Peripheral IV Catheter size: 20g/1.88in Number of attempts: 1 IV flushes: Without difficulty and positive blood return noted and IV luer locked Patient tolerance: Patient tolerated the procedure well, age appropriate response and there were nocomplications IV site covered with: Transparent semipermeable dressing Education provided to: Patient * Progress Notes - Kena Sanders DO - 03/30/2021 8:53 AM EST Images from the original note were not included. Subjective Patient seen and examined. She endorses significant improvement in pain and nausea with Ketamine infusions overnight. Discussed her pain regimen and plan to wean her off ER Oxy overnight tonight. Denies n/v/d, f/c. Has been tolerating simple diet of bagels. Review of Systems Constitutional: Negative for activity change, appetite change and fever. HENT: Negative. Respiratory: Negative. Negative for cough and chest tightness. Cardiovascular: Negative. Gastrointestinal: Positive for abdominal pain. Negative for nausea and vomiting. Endocrine: Negative. Genitourinary: Negative. Negative for dysuria and urgency. Musculoskeletal: Negative. Skin: Positive for rash and wound. Neurological: Negative. Negative for dizziness and headaches. Psychiatric/Behavioral: Negative for behavioral problems, confusion and sleep disturbance. Physical Exam Constitutional: General: She is not in acute distress. Appearance: Normal appearance. She is obese. She is not ill-appearing. HENT: Head: Normocephalic and atraumatic. Nose: Nose [...] back: Normal range of motion. No rigidity. Skin: General: Skin is warm and dry. Findings: Lesion present. Neurological: General: No focal deficit present. Mental Status: She is alert. Sensory: Sensory deficit: .signt. Psychiatric: Mood and Affect: Mood normal. Behavior: Behavior normal. Thought Content: Thought content normal. Judgment: Judgment normal. Last Recorded Vitals Blood pressure 126/89, pulse 91, temperature 36.7 ??C (98.1 ??F), resp. rate 18, height 1.651 m (5'5 ), weight 95.7 kg (210 lb 15.7 oz), SpO2 96 %, not currently . Assessment/Plan Principal Problem: Acute on chronic pancreatitis (CMS/HCC) Active Problems: Bipolar depression (CMS/HCC) Fibromyalgia Tobacco abuse Abdominal pain, epigastric Obesity (BMI 35.0-39.9 without comorbidity) Labs & Imaging: ?? CBC WBC 9.76 Hb 14.8 Plt 305 Hct 46.9 (H) ANC 5.20 ? BMP Na 139 Cl 103 BUN 3 (L) ?? Glu 104 (H) K 3.9 Co2 19 (L) Cr 0.73 Ca 9.3 Mg 1.9, Phos 3.1 ? LFT AST 18 AlkPhos 126 (H) T Prot 7.8 ALK 17 Bili 0.3 Alb ? 0 Lab Value Date/Time ?? LIPASE 216 (H) 03/23/2021 1359 ?? LIPASE 94 (H) 02/03/2021 1904 ?? LIPASE 108 (H) 12/04/2020 1935 ?? LIPASE 43 11/20/2020 0123 ?? LIPASE 23 11/14/2020 2241 ?? LIPASE 190 (H) 11/10/2020 1632 ?? LIPASE 61 10/27/2020 0146 ?? LIPASE 19 10/26/2020 0237 ?? LIPASE 36 10/21/2020 1612 ?? LIPASE 44 10/18/2020 1748 ?? LIPASE 42 10/18/2020 1632 ?? LIPASE 49 04/21/2016 2249 ?? LIPASE 26 04/16/2016 1029 ?? CT Abdomen: 1. Wall thickening of the distal stomach, which could be artifactual or can be seen with gastritis in the correct clinical setting. Several nondilated fluid- filled loops of small bowel throughout theabdomen which could be seen with enteritis in the correct clinical setting. 2. Unchanged soft tissue mass within the inferior medial right breast. Recommend further evaluationwith follow-up breast ultrasound and physical exam findings if not already performed. Meds: ascorbic acid, 250 mg, Oral, Daily docusate sodium, 100 mg, Oral, BID enoxaparin, 40 mg, Subcutaneous, Daily ketamine (Ketalar) IVPB, 10 mg, Intravenous, q8h ketorolac, 15 mg, Intravenous, q6h lurasidone, 40 mg, Oral, Daily with breakfast nicotine, 1 patch, Transdermal, Daily Followed by [START ON 05/04/2021] nicotine, 1 patch, Transdermal, Daily Followed by [START ON 05/18/2021] nicotine, 1 patch, Transdermal, Daily ondansetron ODT, 8 mg, Oral, TID AC oxyCODONE ER, 10 mg, Oral, BID pancrelipase (Xcc-Qday-Adaj), 2 capsule, Oral, TID with meals pantoprazole, 40 mg, Oral, Daily before breakfast polyethylene glycol, 17 g, Oral, Daily pregabalin, 300 mg, Oral, BID venlafaxine XR, 150 mg, Oral, Daily with breakfast lactated Ringer's, 200 mL/hr, Last Rate: 200 mL/hr (03/30/21 0350) PRN medications: acetaminophen, albuterol, melatonin, ondansetron, [DISCONTINUED] oxyCODONE OR oxyCODONE, promethazine, promethazine, Insert peripheral IV AND Saline lock IV AND sodium chloride A & P : ?? This??is a??35 y.o.??female??- Hx of ETOH induced chronic pancreatitis, fibromyalgia, Bipolar disorder, obesity- who is being admitted through ED with 2-day of worsening LUQ abdominal pain. ?? #??Acute on chronic pancreatitis (CMS/HCC) #??Abdominal pain, epigastric # Possible Gastritis based on CT - continue??IV fluids with lactated Ringer at 200 mL/hour for now -??pain control with Dilaudid & oxycodone as needed and Tylenol, discussed need to decrease pain meds 03/30 - continue ketamine Q 8 hours starting 03/29, continue ketoralac for PRN pain -continue Lynette to 15 mg Q4 hrs - dilaudid discontinued this AM - discontinue Oxy ER Q12 for tonight - diet today -??PPI ?? #Weight loss #incidental breast mass on imaging - Right side - Patient has had this worked up OP and has had a mammogram -tolerating diet #??Bipolar depression (CMS/HCC) -??continue venlafaxine and Latuda ?? #??Fibromyalgia -??pain management as above -discussed importance of movement and getting up out of bed and stretching - continue??increased Lyrica 03/29 #??Tobacco abuse -??nicotine replacement -??addiction treatment counselor against use ?? #Obesity (BMI 35.0-39.9 without comorbidity) -??adds to medical complexity ?? DVT prophylaxis-??Lovenox Code status-full code ?? High-risk/complexity due to intractable abdominal pain requiring IV opioids as above ?? Kena Sanders DO Department of Internal Medicine Division of Hospital Medicine Pager: [phone] 03/30/2021 ? * Progress Notes - Kena Sanders DO - 03/29/2021 5:43 PM EST Images from the original note were not included. Subjective Patient seen and examined. She continues to have pain and is requesting pain meds regularly. Is going to try broth for lunch and light dinner as she is hungry. She is tearful, misses her kids and wants to go home but not until her pain is resolved. Has had BM yesterday after feeling constipated for several days. Review of Systems Constitutional: Positive for appetite change. Negative for activity change and fever. HENT: Negative. Respiratory: Negative. Negative for cough and chest tightness. Cardiovascular: Negative. Gastrointestinal: Positive for abdominal pain and nausea. Negative for vomiting. Endocrine: Negative. Genitourinary: Negative. Negative for dysuria and urgency. Musculoskeletal: Negative. Skin: Positive for rash and wound. Neurological: Negative. Negative for dizziness and headaches. Psychiatric/Behavioral: Negative for behavioral problems, confusion and sleep disturbance. Physical Exam Constitutional: General: She is not in acute distress. Appearance: Normal appearance. She is obese. She is not ill-appearing. HENT: Head: Normocephalic and atraumatic. Nose: Nose [...] back: Normal range of motion. No rigidity. Skin: General: Skin is warm and dry. Findings: Lesion present. Neurological: General: No focal deficit present. Mental Status: She is alert. Sensory: Sensory deficit: .signt. Psychiatric: Mood and Affect: Mood normal. Behavior: Behavior normal. Thought Content: Thought content normal. Judgment: Judgment normal. Last Recorded Vitals Blood pressure 143/90, pulse 98, temperature 36.8 ??C (98.3 ??F), temperature source Oral, resp. rate 16, height 1.651 m (5' 5 ), weight 95.7 kg (210 lb 15.7 oz), SpO2 95 %, not currently . Assessment/Plan Principal Problem: Acute on chronic pancreatitis (CMS/HCC) Active Problems: Bipolar depression (CMS/HCC) Fibromyalgia Tobacco abuse Abdominal pain, epigastric Obesity (BMI 35.0-39.9 without comorbidity) Labs & Imaging: ?? CBC WBC 9.76 Hb 14.8 Plt 305 Hct 46.9 (H) ANC 5.20 ? BMP Na 139 Cl 103 BUN 3 (L) ?? Glu 104 (H) K 3.9 Co2 19 (L) Cr 0.73 Ca 9.3 Mg 1.9, Phos 3.1 ? LFT AST 18 AlkPhos 126 (H) T Prot 7.8 ALK 17 Bili 0.3 Alb ? 0 Lab Value Date/Time ?? LIPASE 216 (H) 03/23/2021 1359 ?? LIPASE 94 (H) 02/03/2021 1904 ?? LIPASE 108 (H) 12/04/2020 1935 ?? LIPASE 43 11/20/2020 0123 ?? LIPASE 23 11/14/2020 2241 ?? LIPASE 190 (H) 11/10/2020 1632 ?? LIPASE 61 10/27/2020 0146 ?? LIPASE 19 10/26/2020 0237 ?? LIPASE 36 10/21/2020 1612 ?? LIPASE 44 10/18/2020 1748 ?? LIPASE 42 10/18/2020 1632 ?? LIPASE 49 04/21/2016 2249 ?? LIPASE 26 04/16/2016 1029 ?? CT Abdomen: 1. Wall thickening of the distal stomach, which could be artifactual or can be seen with gastritis in the correct clinical setting. Several nondilated fluid- filled loops of small bowel throughout theabdomen which could be seen with enteritis in the correct clinical setting. 2. Unchanged soft tissue mass within the inferior medial right breast. Recommend further evaluationwith follow-up breast ultrasound and physical exam findings if not already performed. Meds: ascorbic acid, 250 mg, Oral, Daily docusate sodium, 100 mg, Oral, BID enoxaparin, 40 mg, Subcutaneous, Daily ketamine (Ketalar) IVPB, 10 mg, Intravenous, q8h ketorolac, 15 mg, Intravenous, q6h lurasidone, 40 mg, Oral, Daily with breakfast nicotine, 1 patch, Transdermal, Daily Followed by [START ON 05/04/2021] nicotine, 1 patch, Transdermal, Daily Followed by [START ON 05/18/2021] nicotine, 1 patch, Transdermal, Daily ondansetron ODT, 8 mg, Oral, TID AC oxyCODONE ER, 10 mg, Oral, BID pancrelipase (Eze-[id number]-[id number]), 2 capsule, Oral, TID with meals pantoprazole, 40 mg, Oral, Daily before breakfast polyethylene glycol, 17 g, Oral, Daily pregabalin, 300 mg, Oral, BID venlafaxine XR, 150 mg, Oral, Daily with breakfast lactated Ringer's, 200 mL/hr, Last Rate: 200 mL/hr (03/29/21 0134) PRN medications: acetaminophen, albuterol, HYDROmorphone, melatonin, ondansetron, [DISCONTINUED] oxyCODONE OR oxyCODONE, promethazine, promethazine, Insert peripheral IV AND Saline lock IV AND sodium chloride A & P : ?? This??is a??35 y.o.??female??- Hx of ETOH induced chronic pancreatitis, fibromyalgia, Bipolar disorder, obesity- who is being admitted through ED with 2-day of worsening LUQ abdominal pain. ?? #??Acute on chronic pancreatitis (CMS/HCC) #??Abdominal pain, epigastric # Possible Gastritis based on CT - continue??IV fluids with lactated Ringer at 200 mL/hour for now -??pain control with Dilaudid & oxycodone as needed and Tylenol, discussed need to decrease pain meds 2/5 -plan for pain is trial ketamine Q 8 hours starting 03/29, discontinue dilaudid and ER oxy /, add ketoralac for PRN pain -increased Lynette to 15 mg Q4 hrs - continue Oxy ER Q12 for tonight, will discontinue in the morning - diet today -??PPI ?? #Weight loss #incidental breast mass on imaging - Right side - Patient has had this worked up OP and has had a mammogram #??Bipolar depression (CMS/HCC) -??continue venlafaxine and Latuda ?? #??Fibromyalgia -??pain management as above -discussed importance of movement and getting up out of bed and stretching -??increase Lyrica 2/ #??Tobacco abuse -??nicotine replacement -??addiction treatment counselor against use ?? #Obesity (BMI 35.0-39.9 without comorbidity) -??adds to medical complexity ?? DVT prophylaxis-??Lovenox Code status-full code ?? High-risk/complexity due to intractable abdominal pain requiring IV opioids as above ?? Kena Sanders DO [facility] Pager: [phone] Electronically Signed by: Kena Sanders DO - 03/29/2021 - 5:47 PM ? * Progress Notes - Mora Ramirez RN - 03/29/2021 4:44 PM EST Case Management Adult Progress Note Rosibel Gayle 35 y.o. female CSN: [id number] Admission: 03/23/2021 1:28 PM Primary Problem: Acute on chronic pancreatitis (CMS/HCC) Additional Comments RN CM met with the patients medicine team for huddle and discussed the plan of care. Per team discussion Mrs. Gayle is not ready to discharge as the team continues to address her pain management due to pancreatitis. Palliative service was consulted today for recommendations. Recommendations per their note. CM will follow and address discharge needs as appropriate. Mora Ramirez RN * Consults - Lida Cutler MD - 03/29/2021 11:55 AM ESTAssociated Order(s): IP CONSULT TO PALLIATIVE CARE Palliative Care Consult: Received consult for Ms. Gayle and have reviewed chart alongside palliative pharmacist Laureen Ferrer. Unfortunately, we are unable to manage chronic pain in the absence of a life-limiting diagnosis,though we are happy to provide one- time recommendations to help to guide medication management. Briefly, she is a 35yo F with a history of ETOH-induced pancreatitis, fibromyalgia, and bipolar disorder admitted now for acute on chronic pancreatitis. CTAP demonstrated wall thickening of the distal stomach, as well as several non-dilated fluid-filled loops of small bowel - no peripancreatic changes.For pain control, she was initially made NPO and started on hydromorphone 0.5 mg IV q2 hours PRN and oxycodone 5 mg q4 hours PRN. In recent days, due to persistent pain, these doses have been increased with current regimen of hydromorphone 1 mg IV q4 hours PRN, oxycodone 15 mg q4 hours PRN, and oxycodone ER 10 mg BID. 24-hour opioid requirements (03/28): - oxycodone IR 10 mg x 4 = 40 mg - hydromorphone 1 mg IV x 6 - oxycodone ER 10 mg BID = 20 mg = 210 OME 2/2 opioid requirements: - oxycodone ER 10 mg x 2 = 20 mg - oxycodone IR 10 mg x 4 = 40 mg - hydromorphone 1 mg IV x 6 = 210 OME In reviewing DAMIAN, she has required short courses of opioids intermittently with oxycodone 10 mg and oxycodone-acetaminophen 5-325 mg. Her provider is Dr. Elmo Escobar in [place], [place]. Recommendations: At this time, would seek to account for the acute component of her pain with current dosing of oxycodone 15 mg while weaning IV hydromorphone as she is now tolerating CLD. - continue oxycodone 15 mg q4 hours PRN - she may require this at the time of discharge for a short period of time as acute process improves - recommend speaking to her PCP, Dr. Elmo Escobar, about his comfort in providing if needed - stop oxycodone ER 10 mg BID - can consider addition of ketorolac 15 mg q6 hours x 3-5 days - can also consider initiation of ketamine 10 mg IVPB q8 hours, run over 30 minutes - side effects are infrequent at these doses, but may include vivid dreams, confusion, anxiety, or elevated BP - this could potentially serve to provide some pain control while enabling IV opioid wean - this medication can be continued until the time of discharge; no need to wean - wean IV hydromorphone 1 mg IV - could space to q8 hours PRN tonight, then - q12 hours PRN tomorrow morning, then - OFF tomorrow evening - change pregabalin to home dose of 300 mg BID Should you have any other questions regarding medication management, please do not hesitate to reach out to our team. Lida Cutler MD * Consults - Farida Eason RD - 03/29/2021 10:26 AM EST Adult Nutrition Evaluation Note Rosibel Gayle 35 y.o. female CSN: [id number] Room/Bed 439/439A Nutrition evaluation type: follow-up Hospital course: 35 y/o F admitted 03/23 with 2-day of worsening LUQ abdominal pain. Pt with acute on chronic pancreatitis. Possible gastritis based on CT. NPO trial r/t issues with N/V Past medical/ surgical history: Past Medical History: Diagnosis Date ??? Anxiety ??? Arthritis ??? Depression ??? Fibromyalgia ??? GERD (gastroesophageal reflux disease) ??? Hypertension ??? Nicotine dependence ??? Obesity ??? Pancreatitis Past Surgical History: Procedure Laterality Date ??? CHOLECYSTECTOMY ??? ERCP ??? ESOPHAGOGASTRODUODENOSCOPY ??? HAND SURGERY Additional comments: Per H&P: She lost 30 lb within the past 6 months, unintentional. 03/25: fashion styling intern visited with pt. Pt endorses nausea and diarrhea x 3days usually from consuming food. Pt states she has lost 20#, she weighed 230# a couple months ago and now weighs 209# because she is afraid to eat as it caused pain. 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 Pt denies the need for Boost Breeze as she said she doesn't like the taste. Pt states she is fine to only consume clear liquids until she can tolerate food. Pt denies any food allergies. 03/29: Pt complaining of nausea per EMR. RD paged Attending to alert that pt has been without an adequate nutrition source x 7 days. Vitals and Basic Assessment: BP: 141/90 Temp: 36.8 ??C (98.3 ??F) Oxygen Therapy: None (Room air) Jo Coma Scale Score: 15 Scott Scale Score: 21 Last BM Date: 03/22/21 GI Symptoms: Nausea Skin: right pretibial, lower sternum, nose Allergies: no known food allergies Medications: ascorbic acid, 250 mg, Oral, Daily docusate sodium, 100 mg, Oral, BID enoxaparin, 40 mg, Subcutaneous, Daily lurasidone, 40 mg, Oral, Daily with breakfast nicotine, 1 patch, Transdermal, Daily Followed by [START ON 05/04/2021] nicotine, 1 patch, Transdermal, Daily Followed by [START ON 05/18/2021] nicotine, 1 patch, Transdermal, Daily oxyCODONE ER, 10 mg, Oral, BID pancrelipase (Xzu-Ybwn-Xsdl), 2 capsule, Oral, TID with meals pantoprazole, 40 mg, Oral, Daily before breakfast polyethylene glycol, 17 g, Oral, Daily pregabalin, 225 mg, Oral, BID venlafaxine XR, 150 mg, Oral, Daily with breakfast lactated Ringer's, 200 mL/hr, Last Rate: 200 mL/hr (03/29/21 0134) PRN medications: acetaminophen, albuterol, HYDROmorphone, melatonin, ondansetron, [DISCONTINUED] oxyCODONE OR oxyCODONE, promethazine, promethazine, Insert peripheral IV AND Saline lock IV AND sodium chloride Meds were reviewed: Yes Labs: Lab Results Component Value Date WBC 5.88 03/28/2021 HGB 12.2 03/28/2021 HCT 38.3 03/28/2021 MCV 85 03/28/2021 PLT 153 (L) 03/28/2021 Lab Results Component Value Date GLUCOSE 99 03/28/2021 CALCIUM 9.1 03/28/2021 NA 140 03/28/2021 K 4.0 03/28/2021 CO2 30 (H) 03/28/2021 CL 100 03/28/2021 BUN <3 (L) 03/28/2021 CREATININE 0.64 03/28/2021 Lab Results Component Value Date ALBUMIN 4.4 03/24/2021 Lab Results Component Value Date CALCIUM 9.1 03/28/2021 PHOS 3.1 03/24/2021 Lab Results Component Value Date ALT 17 03/24/2021 AST 18 03/24/2021 ALKPHOS 126 (H) 03/24/2021 BILITOT 0.3 03/24/2021 Lipase: 216 Magnesium: 1.7 POCT Glucose: 82mg/dl Anthropometrics: Admit Height (CM) 165.1cm Admit Weight (KG) 95.7 kg Current Weight (KG) 95.7kg BMI 35 Weight Evaluation Obese class 2 IBW (KG) 56.8 kg Percent IBW 168% Adjusted Weight (KG) 66.5 kg Weight History Per EMR: Wt Readings from Last 9 Encounters: 03/23/21 95.7 kg (210 lb 15.7 oz) 02/04/21 102 kg (224 lb 3.3 oz) 12/04/20 95.3 kg (210 lb) 12/04/20 99.4 kg (219 lb 2.2 oz) 11/21/20 98 kg (216 lb 0.8 oz) 11/10/20 102 kg (225 lb 12 oz) 10/21/20 90.7 kg (200 lb) 10/18/20 90.7 kg (200 lb) 10/18/20 79.8 kg (176 lb) Additional Comments Estimated Needs: Provided Based On Weight Used Kcal/day -33 ABW Protein/day 80-93 1.2-1.4 ABW Fluid/day 1ml/kcal or per MD team Additional Comments Current Nutrition Intake: Current Diet Order NPO Avg PO Intakes per RN Flowsheets 8% intake x 3 meal Oral Nutrition Supplements n/a Diet EDU Provided Will monitor need throughout LOS Gnosticist/ Cultural Needs Ethnic needs not identified at this time Additional Comments Nutrition Focused Physical Exam: Physical exam performed on (date): unable to perform- remote charting Assessment of Malnutrition: unable to assess Nutrition Problem: Inadequate energy intake related to chronic pancreatitis as evidenced by clear liquid diet, abdominal pain, and 0% intakes x 1 meal. Status of Nutrition Diagnosis: No Improvement Nutrition Interventions and Recommendations: - Continue NPO as appropriate, advance to low fat diet as tolerated for pancreatic rest - Pt declined oral nutrition supplement at this time - Today is day 7 of inadequate nutrition source, if unable to advance diet past NPO/CLD today wouldrec post pyloric DHT placement. TF recs: Peptamen 1.5 @ 10ml/hr and advance 10ml/hr q6hrs until goal @ 60ml/hr. Monitor elytes and advance slowly as pt is at risk for refeeding syndrome -- Peptamen 1.5 @ 60 ml/hr (1320 ml/day) provides 1980 kcal, 90g protein, 248g CHO, 74g fat, 0g fiber, 1014 ml water, and 132% RDIs vit/min - Rec MVI with mineral daily, continue vitamin C as appropriate - Rec obtaining weight 1x/week. Nutrition Monitoring and Goals: - Will monitor PO intake, weight status, lab results, GI tolerance, and skin integrity. - Pt will have adequate source of nutrition by follow up (not met, continue) - Pt will maintain weight this admission. (Monitoring) Discharge Planning: RD to monitor for nutrition related discharge needs. Acuity Level: 5 :Farida Eason RD * Care Plan - Clarisa Ulloa RN - 03/29/2021 7:20 AM EST Pt slept on and off through the night. VS noted. Pt c/o nausea assessed/ treated/ relief reassessed. Pt c/o pain assessed/ treated/ relief reassessed. No other c/o voiced. No other distress noted. * Progress Notes - Kena Sanders DO - 03/28/2021 4:09 PM EST Images from the original note were not included. Subjective Patient seen and examined. Pain was improved overnight as she slept and woke up only once to request pain medications. She is having a lot of pain this AM though. She was supposed to be NPO yesterdayand was not, had lunch which made her vomit. Will trial NPO for today. We discussed her abnormal breast finding on imaging which has already been worked up as OP. She also mentioned some dry patches of pruritic skin on her neck and scalp. Review of Systems Constitutional: Positive for activity change and appetite change. Negative for fever. HENT: Negative. Respiratory: Negative. Negative for cough and chest tightness. Cardiovascular: Negative. Gastrointestinal: Positive for abdominal pain, nausea and vomiting. Endocrine: Negative. Genitourinary: Negative. Negative for dysuria and urgency. Musculoskeletal: Negative. Skin: Positive for rash and wound. Neurological: Negative. Negative for dizziness and headaches. Psychiatric/Behavioral: Negative for behavioral problems, confusion and sleep disturbance. Physical Exam Constitutional: General: She is not in acute distress. Appearance: Normal appearance. She is obese. She is not ill-appearing. HENT: Head: Normocephalic and atraumatic. Nose: Nose [...] is no abdominal tenderness. Musculoskeletal: General: No swelling or tenderness. Normal range of motion. Skin: General: Skin is warm and dry. Findings: Lesion present. Neurological: General: No focal deficit present. Mental Status: She is alert. Psychiatric: Mood and Affect: Mood normal. Behavior: Behavior normal. Thought Content: Thought content normal. Judgment: Judgment normal. Last Recorded Vitals Blood pressure (!) 141/97, pulse 106, temperature 36.3 ??C (97.4 ??F), temperature source Oral, resp. rate 16, height 1.651 m (5' 5 ), weight 95.7 kg (210 lb 15.7 oz), SpO2 90 %, not currently . Assessment/Plan Principal Problem: Acute on chronic pancreatitis (CMS/HCC) Active Problems: Bipolar depression (CMS/HCC) Fibromyalgia Tobacco abuse Abdominal pain, epigastric Obesity (BMI 35.0-39.9 without comorbidity) Labs & Imaging: ?? CBC WBC 9.76 Hb 14.8 Plt 305 Hct 46.9 (H) ANC 5.20 ? BMP Na 139 Cl 103 BUN 3 (L) ?? Glu 104 (H) K 3.9 Co2 19 (L) Cr 0.73 Ca 9.3 Mg 1.9, Phos 3.1 ? LFT AST 18 AlkPhos 126 (H) T Prot 7.8 ALK 17 Bili 0.3 Alb ? 0 Lab Value Date/Time ?? LIPASE 216 (H) 03/23/2021 1359 ?? LIPASE 94 (H) 02/03/2021 1904 ?? LIPASE 108 (H) 12/04/2020 1935 ?? LIPASE 43 11/20/2020 0123 ?? LIPASE 23 11/14/2020 2241 ?? LIPASE 190 (H) 11/10/2020 1632 ?? LIPASE 61 10/27/2020 0146 ?? LIPASE 19 10/26/2020 0237 ?? LIPASE 36 10/21/2020 1612 ?? LIPASE 44 10/18/2020 1748 ?? LIPASE 42 10/18/2020 1632 ?? LIPASE 49 04/21/2016 2249 ?? LIPASE 26 04/16/2016 1029 ?? CT Abdomen: 1. Wall thickening of the distal stomach, which could be artifactual or can be seen with gastritis in the correct clinical setting. Several nondilated fluid- filled loops of small bowel throughout theabdomen which could be seen with enteritis in the correct clinical setting. 2. Unchanged soft tissue mass within the inferior medial right breast. Recommend further evaluationwith follow-up breast ultrasound and physical exam findings if not already performed. Meds: ascorbic acid, 250 mg, Oral, Daily docusate sodium, 100 mg, Oral, BID enoxaparin, 40 mg, Subcutaneous, Daily lurasidone, 40 mg, Oral, Daily with breakfast nicotine, 1 patch, Transdermal, Daily Followed by [START ON 05/04/2021] nicotine, 1 patch, Transdermal, Daily Followed by [START ON 05/18/2021] nicotine, 1 patch, Transdermal, Daily oxyCODONE ER, 10 mg, Oral, BID pancrelipase (Irf-Touw-Eima), 2 capsule, Oral, TID with meals pantoprazole, 40 mg, Oral, Daily before breakfast polyethylene glycol, 17 g, Oral, Daily pregabalin, 225 mg, Oral, BID venlafaxine XR, 150 mg, Oral, Daily with breakfast lactated Ringer's, 200 mL/hr, Last Rate: 200 mL/hr (03/28/21 0259) PRN medications: acetaminophen, albuterol, HYDROmorphone, melatonin, ondansetron, oxyCODONE OR oxyCODONE, promethazine, promethazine, Insert peripheral IV AND Saline lock IV AND sodium chloride A & P : ?? This??is a??35 y.o.??female??- Hx of ETOH induced chronic pancreatitis, fibromyalgia, Bipolar disorder, obesity- who is being admitted through ED with 2-day of worsening LUQ abdominal pain. ?? #??Acute on chronic pancreatitis (CMS/HCC) #??Abdominal pain, epigastric # Possible Gastritis based on CT - continue??IV fluids with lactated Ringer at 200 mL/hour for now -??pain control with Dilaudid & oxycodone as needed and Tylenol, discussed need to decrease pain meds tomorrow - continue Oxy ER Q12 BID - NPO trial today -??PPI ?? #Weight loss #incidental breast mass on imaging - Right side Patient has had this worked up OP and has had a mammogram #??Bipolar depression (CMS/HCC) -??continue venlafaxine and Latuda ?? #??Fibromyalgia -??pain management as above -discussed importance of movement and getting up out of bed and stretching -??continue Lyrica #??Tobacco abuse -??nicotine replacement -??addiction treatment counselor against use ?? #Obesity (BMI 35.0-39.9 without comorbidity) -??adds to medical complexity ?? DVT prophylaxis-??Lovenox Code status-full code ?? High-risk/complexity due to intractable abdominal pain requiring IV opioids as above ?? Kena Sanders DO [facility] Pager: [phone] Electronically Signed by: Kena Sanders DO - 03/28/2021 - 4:14 PM ? * Care Plan - Naseem Josehp - 03/27/2021 9:52 PM EST Problem: Pain (Pancreatitis) Goal: Acceptable Pain Control Outcome: Ongoing, Progressing Problem: Pain Acute Goal: Acceptable Pain Control and Functional Ability Outcome: Ongoing, Progressing * Consults - Sharon Bullard - 03/27/2021 5:21 PM EST Pastoral Care Note Processed feelings and emotions with patient regarding condition, family dynamics and spirituality.Patient shared some health concerns but also expressed positivity and hopefulness. Referral From: Body Service Team Member initiated Pastoral Care Provided For: Patient Patient Profile: Consult Reasons: Initial visit Spiritual Assessment: Support Systems/ Spiritual Resources: Lara,Family Spiritual Needs: Emotional support,Spiritual support Spiritual Issues: Chronic pain/ illness,Isolation/ loneliness Coping Skills: Strong Interventions: Interventions Provided: Emotional support,Gnosticist material,Spiritual support Pastoral Care Outcomes: Patient Outcomes: Gratitude,Expresses being seen and heard * Progress Notes - Kena Sanders DO - 03/27/2021 2:19 PM EST Images from the original note were not included. Subjective Patient seen and examined. Endorsing improvement in epigastric pain and nausea. She did take Oxy ERlast night and thinks this helped with pain mgmt. She thinks she rested better last night. She did vomit last night, gingerale and ice. Agreeable to scheduling Oxy ER BID with anticipation of decreasing Dilaudid use. Also, will trial NPO for today. Review of Systems Constitutional: Positive for activity change and appetite change. Negative for fever. HENT: Negative. Respiratory: Negative. Negative for cough and chest tightness. Cardiovascular: Negative. Gastrointestinal: Positive for abdominal pain, nausea and vomiting. Endocrine: Negative. Genitourinary: Negative. Negative for dysuria and urgency. Musculoskeletal: Negative. Skin: Positive for wound. Neurological: Negative. Psychiatric/Behavioral: Negative for behavioral problems, confusion and sleep disturbance. Physical Exam Constitutional: General: She is not in acute distress. Appearance: Normal appearance. She is obese. She is not ill-appearing. HENT: Head: Normocephalic and atraumatic. Nose: Nose [...] General: Skin is warm and dry. Findings: Lesion present. Neurological: General: No focal deficit present. Mental Status: She is alert. Psychiatric: Mood and Affect: Mood normal. Behavior: Behavior normal. Thought Content: Thought content normal. Judgment: Judgment normal. Last Recorded Vitals Blood pressure (!) 140/92, pulse 77, temperature 36.5 ??C (97.7 ??F), resp. rate 20, height 1.651 m(5' 5 ), weight 95.7 kg (210 lb 15.7 oz), SpO2 99 %, not currently . Assessment/Plan Principal Problem: Acute on chronic pancreatitis (CMS/HCC) Active Problems: Bipolar depression (CMS/HCC) Fibromyalgia Tobacco abuse Abdominal pain, epigastric Obesity (BMI 35.0-39.9 without comorbidity) Labs & Imaging: ?? CBC WBC 9.76 Hb 14.8 Plt 305 Hct 46.9 (H) ANC 5.20 ? BMP Na 139 Cl 103 BUN 3 (L) ?? Glu 104 (H) K 3.9 Co2 19 (L) Cr 0.73 Ca 9.3 Mg 1.9, Phos 3.1 ? LFT AST 18 AlkPhos 126 (H) T Prot 7.8 ALK 17 Bili 0.3 Alb ? 0 Lab Value Date/Time ?? LIPASE 216 (H) 03/23/2021 1359 ?? LIPASE 94 (H) 02/03/2021 1904 ?? LIPASE 108 (H) 12/04/2020 1935 ?? LIPASE 43 11/20/2020 0123 ?? LIPASE 23 11/14/2020 2241 ?? LIPASE 190 (H) 11/10/2020 1632 ?? LIPASE 61 10/27/2020 0146 ?? LIPASE 19 10/26/2020 0237 ?? LIPASE 36 10/21/2020 1612 ?? LIPASE 44 10/18/2020 1748 ?? LIPASE 42 10/18/2020 1632 ?? LIPASE 49 04/21/2016 2249 ?? LIPASE 26 04/16/2016 1029 ?? CT Abdomen: 1. Wall thickening of the distal stomach, which could be artifactual or can be seen with gastritis in the correct clinical setting. Several nondilated fluid- filled loops of small bowel throughout theabdomen which could be seen with enteritis in the correct clinical setting. 2. Unchanged soft tissue mass within the inferior medial right breast. Recommend further evaluationwith follow-up breast ultrasound and physical exam findings if not already performed. Meds: ascorbic acid, 250 mg, Oral, Daily enoxaparin, 40 mg, Subcutaneous, Daily lurasidone, 40 mg, Oral, Daily with breakfast nicotine, 1 patch, Transdermal, Daily Followed by [START ON 05/04/2021] nicotine, 1 patch, Transdermal, Daily Followed by [START ON 05/18/2021] nicotine, 1 patch, Transdermal, Daily oxyCODONE ER, 10 mg, Oral, BID pancrelipase (Xth-Dyxo-Guel), 2 capsule, Oral, TID with meals pantoprazole, 40 mg, Oral, Daily before breakfast pregabalin, 225 mg, Oral, BID venlafaxine XR, 150 mg, Oral, Daily with breakfast lactated Ringer's, 200 mL/hr, Last Rate: 200 mL/hr (03/27/21 1124) PRN medications: acetaminophen, albuterol, HYDROmorphone, melatonin, ondansetron, oxyCODONE OR oxyCODONE, promethazine, promethazine, Insert peripheral IV AND Saline lock IV AND sodium chloride A & P : ?? This??is a??35 y.o.??female??- Hx of ETOH induced chronic pancreatitis, fibromyalgia, Bipolar disorder, obesity- who is being admitted through ED with 2-day of worsening LUQ abdominal pain. ?? #??Acute on chronic pancreatitis (CMS/HCC) #??Abdominal pain, epigastric # Possible Gastritis based on CT - continue??IV fluids with lactated Ringer at 200 mL/hour for now -??pain control with Dilaudid & oxycodone as needed and Tylenol. - will schedule Oxy ER Q12 BID - NPO trial today -??PPI ?? #Weight loss #incidental breast mass on imaging - Right side -will order R breast Ultrasound #??Bipolar depression (CMS/HCC) -??continue venlafaxine and Latuda ?? #??Fibromyalgia -??pain management as above -??continue Lyrica #??Tobacco abuse -??nicotine replacement -??addiction treatment counselor against use ?? #Obesity (BMI 35.0-39.9 without comorbidity) -??adds to medical complexity ?? DVT prophylaxis-??Lovenox Code status-full code ?? High-risk/complexity due to intractable abdominal pain requiring IV opioids as above ?? Kena Sanders DO [facility] Pager: [phone] Electronically Signed by: Kena Sanders DO - 03/27/2021 - 2:26 PM ? * Care Plan - Naseem Joseph - 03/26/2021 11:06 PM EST Problem: Adult Inpatient Plan of Care Goal: Plan of Care Review Outcome: Ongoing, Progressing Problem: Infection (Pancreatitis) Goal: Infection Symptom Resolution Outcome: Ongoing, Progressing Problem: Nutrition Impaired (Pancreatitis) Goal: Optimal Nutrition Intake Outcome: Ongoing, Progressing Problem: Pain (Pancreatitis) Goal: Acceptable Pain Control Outcome: Ongoing, Progressing Problem: Pain Acute Goal: Acceptable Pain Control and Functional Ability Outcome: Ongoing, Progressing Problem: Oral Intake Inadequate Goal: Improved Oral Intake Outcome: Ongoing, Progressing * Progress Notes - Kena Sanders DO - 03/26/2021 6:43 PM EST Subjective Patient seen and examined. Endorsing epigastric pain and nausea. Unable to tolerate food, is tolerating ice chips. States current pain regimen is not controlling her pain. Unable to sleep due to pain. Review of Systems Constitutional: Positive for activity change and appetite change. Negative for fever. HENT: Negative. Respiratory: Negative. Cardiovascular: Negative. Gastrointestinal: Positive for abdominal pain and nausea. Endocrine: Negative. Genitourinary: Negative. Musculoskeletal: Negative. Neurological: Negative. Psychiatric/Behavioral: Positive for sleep disturbance. Physical Exam Constitutional: General: She is not in acute distress. Appearance: Normal appearance. She is obese. She is not ill-appearing. HENT: Head: Normocephalic and atraumatic. Nose: Nose normal. Mouth/Throat: Mouth: Mucous membranes are moist. Cardiovascular: [...] normal. Last Recorded Vitals Blood pressure (!) 133/91, pulse 87, temperature 36.3 ??C (97.4 ??F), temperature source Oral, resp. rate 16, height 1.651 m (5' 5 ), weight 95.7 kg (210 lb 15.7 oz), SpO2 93 %, not currently . Assessment/Plan Principal Problem: Acute on chronic pancreatitis (CMS/HCC) Active Problems: Bipolar depression (CMS/HCC) Fibromyalgia Tobacco abuse Abdominal pain, epigastric Obesity (BMI 35.0-39.9 without comorbidity) Labs & Imaging: ?? CBC WBC 9.76 Hb 14.8 Plt 305 Hct 46.9 (H) ANC 5.20 ? BMP Na 139 Cl 103 BUN 3 (L) ?? Glu 104 (H) K 3.9 Co2 19 (L) Cr 0.73 Ca 9.3 Mg 1.9, Phos 3.1 ? LFT AST 18 AlkPhos 126 (H) T Prot 7.8 ALK 17 Bili 0.3 Alb ? 0 Lab Value Date/Time ?? LIPASE 216 (H) 03/23/2021 1359 ?? LIPASE 94 (H) 02/03/2021 1904 ?? LIPASE 108 (H) 12/04/2020 1935 ?? LIPASE 43 11/20/2020 0123 ?? LIPASE 23 11/14/2020 2241 ?? LIPASE 190 (H) 11/10/2020 1632 ?? LIPASE 61 10/27/2020 0146 ?? LIPASE 19 10/26/2020 0237 ?? LIPASE 36 10/21/2020 1612 ?? LIPASE 44 10/18/2020 1748 ?? LIPASE 42 10/18/2020 1632 ?? LIPASE 49 04/21/2016 2249 ?? LIPASE 26 04/16/2016 1029 ?? CT Abdomen: 1. Wall thickening of the distal stomach, which could be artifactual or can be seen with gastritis in the correct clinical setting. Several nondilated fluid- filled loops of small bowel throughout theabdomen which could be seen with enteritis in the correct clinical setting. 2. Unchanged soft tissue mass within the inferior medial right breast. Recommend further evaluationwith follow-up breast ultrasound and physical exam findings if not already performed. Meds: ascorbic acid, 250 mg, Oral, Daily enoxaparin, 40 mg, Subcutaneous, Daily lurasidone, 40 mg, Oral, Daily with breakfast nicotine, 1 patch, Transdermal, Daily Followed by [START ON 05/04/2021] nicotine, 1 patch, Transdermal, Daily Followed by [START ON 05/18/2021] nicotine, 1 patch, Transdermal, Daily pancrelipase ([id number]), 2 capsule, Oral, TID with meals pantoprazole, 40 mg, Oral, Daily before breakfast pregabalin, 225 mg, Oral, BID venlafaxine XR, 150 mg, Oral, Daily with breakfast lactated Ringer's, 125 mL/hr, Last Rate: 125 mL/hr (03/26/21 1722) PRN medications: acetaminophen, albuterol, HYDROmorphone, melatonin, ondansetron, oxyCODONE OR oxyCODONE, promethazine, promethazine, Insert peripheral IV AND Saline lock IV AND sodium chloride A & P : ?? This??is a??35 y.o.??female??- Hx of ETOH induced chronic pancreatitis, fibromyalgia, Bipolar disorder, obesity- who is being admitted through ED with 2-day of worsening LUQ abdominal pain. ?? #??Acute on chronic pancreatitis (CMS/HCC) #??Abdominal pain, epigastric # Possible Gastritis based on CT - increase??IV fluids with lactated Ringer at 200 mL/hour for now -??pain control with Dilaudid & oxycodone as needed and Tylenol. - will schedule Oxy ER Q12 for tonight -??full liquid diet and advanced as tolerated -??PPI ?? #??Bipolar depression (CMS/HCC) -??resume venlafaxine and Latuda ?? #??Fibromyalgia -??pain management as above -??resume Lyrica. #??Tobacco abuse -??nicotine replacement -??addiction treatment counselor against use ?? #Obesity (BMI 35.0-39.9 without comorbidity) -??adds to complexity ?? DVT prophylaxis-??Lovenox Code status-full code ?? High-risk/complexity due to intractable abdominal pain requiring IV opioids as above ?? Kena Sanders DO [facility] Pager: [phone] Electronically Signed by: Kena Sanders DO - 03/26/2021 - 6:44 PM ? * Progress Notes - Mora Ramirez RN - 03/26/2021 11:31 AM EST Case Management Adult Initial Progress Note Rosibel Gayle 35 y.o. female CSN: [id number] Admission: 03/23/2021 1:28 PM Primary Problem: Acute on chronic pancreatitis (CMS/HCC) Graduate Civil Engineer reviewed chart and spoke with Mrs. Gayle to complete this Initial Case Management Assessment. PCP: Elmo Escobar MD Emergency Contact: Extended Emergency Contact Information Primary Emergency Contact: Asiya Flores Mobile Relation: Other Insurance: Primary Visit Coverage Payer Plan Sponsor Code Group Number Group Name ANTHEM MEDICAID ANTHEM MEDICAID [id number] Primary Visit Coverage Subscriber Subscriber ID Subscriber Name Subscriber SSN Subscriber Address [id number] ROSIBEL GAYLE [id number] [place] [id number] Patient information: Primary Caregiver: (Self) Accompanied by/Relationship: Patient did not have a visitor during CM interview on 03/25/21 Support System: (Patient lives with her mother, her fiance' and kids.) Daily Living Activities: Functional Status: Independent Living Arrangements: Family Type of Residence: Private residence,Single Level,Other (Comment) (Patient verified that she resides at [address] [place], [place] with her mother, fiance' and kids) [address] [facility] [place] [address] Assistive Devices: none Current DME Provider: Not applicable Income Information: Income Source: Unemployed (Patient reported that she does not have an income, is unemployed. She stated that her son is autistic and receives a disability benefit and her fiance' works at [employer].) Income/Expense Information: Income meets expenses Current Resources Utilized: None Housing Circumstances-Z Codes: Housing Circumstances (select all that apply): Low Income (101-300% Federal Poverty Guidlines) - Z596 Patient Referred to: Financial Resources: Other (Comment) (Not applicable) Community Resources: Other (Comment) (Not applicable) Anticipated Discharge Date: TBD Patient's Discharge Goal: Patient plans to return home when she is discharged. Assistance Available at Discharge: No assistance needed. Discharge Transport: Yes. Family. Follow Up Transport: Yes. Family. Home Health / Home Infusion / Outpatient Dialysis Services: Mrs. Gayle reported to CM that she is not currently established with [facility] services, she does not receive home infusion and she does not go to outpatient hemodialysis. DME: Assistive Devices: none Living Will/Advance Directive/Power of Habilitation Training Specialist /Guardian: Unable to assess: No Have you reviewed your Advance Directive and is it valid for this stay?: No Advance Directive: Patient would not like information Information Provided on Healthcare Directives: No Pre-existing DNR/DNI Order: No Patient Requests Assistance: No Additional Comments: Mrs. Gayle reported to CM that she uses the [facility] in [place]. She reported that she has received the two doses of the Moderna vaccine and the Pfizer booster. CM met with the patients medicine team for huddle and discussed the plan of care. Per team discussion Mrs. Gayle is not ready for discharge home today as she is being treated for acute pancreatitis. CM will follow and assist with discharge planning needs. Mora Ramirez RN * Care Plan - Joseph, Naseem Henderson - 03/25/2021 10:51 PM EST Problem: Pain Acute Goal: Acceptable Pain Control and Functional Ability Outcome: Ongoing, Progressing * Progress Notes - Delbert Horne MD - 03/25/2021 2:16 PM EST Seen and examined. HD stable with no sig events over the night Still have the abdominal pain with no improvement since yesterday Still in need for dilaudid with oxy for now. But she is moving her bowel. ROS: As above. ?? Ex: Blood pressure (!) 140/91, pulse 66, temperature 36.4 ??C (97.5 ??F), resp. rate 20, height 1.651 m(5' 5 ), weight 95.7 kg (210 lb 15.7 oz), SpO2 95 %, not currently . ?? Constitutional:?Alert and coherent without ??apparent acute respiratory distress ,??carawled??inbed-seems to be in pain Eyes??no pallor or jaundice. ?? ENT??moist oral mucosa. Neck ??no JVD, no visible masses CVS normal S1 and S2 regular. Chest good air entry bilateral, no wheezing, no crepitations. Abdomen soft??+ve tenderness LUQ and epigastrium-??no guarding or rigidity.?nondistended bowel sounds heard. Lower limbs no edema, swelling or ??calf tenderness, good capillary refill. Neurological nonfocal. Skin??abrasion on the tip of the nose, skate papules over the dorsum of the right hand.? Labs & Imaging: ?? CBC WBC 9.76 Hb 14.8 Plt 305 Hct 46.9 (H) ANC 5.20 ? BMP Na 139 Cl 103 BUN 3 (L) ?? Glu 104 (H) K 3.9 Co2 19 (L) Cr 0.73 Ca 9.3 Mg 1.9, Phos 3.1 ? LFT AST 18 AlkPhos 126 (H) T Prot 7.8 ALK 17 Bili 0.3 Alb ? 0 Lab Value Date/Time ?? LIPASE 216 (H) 03/23/2021 1359 ?? LIPASE 94 (H) 02/03/2021 1904 ?? LIPASE 108 (H) 12/04/2020 1935 ?? LIPASE 43 11/20/2020 0123 ?? LIPASE 23 11/14/2020 2241 ?? LIPASE 190 (H) 11/10/2020 1632 ?? LIPASE 61 10/27/2020 0146 ?? LIPASE 19 10/26/2020 0237 ?? LIPASE 36 10/21/2020 1612 ?? LIPASE 44 10/18/2020 1748 ?? LIPASE 42 10/18/2020 1632 ?? LIPASE 49 04/21/2016 2249 ?? LIPASE 26 04/16/2016 1029 ?? CT Abdomen: 1. Wall thickening of the distal stomach, which could be artifactual or can be seen with gastritis in the correct clinical setting. Several nondilated fluid- filled loops of small bowel throughout theabdomen which could be seen with enteritis in the correct clinical setting. 2. Unchanged soft tissue mass within the inferior medial right breast. Recommend further evaluationwith follow-up breast ultrasound and physical exam findings if not already performed. Meds: ascorbic acid, 250 mg, Oral, Daily enoxaparin, 40 mg, Subcutaneous, Daily lurasidone, 40 mg, Oral, Daily with breakfast nicotine, 1 patch, Transdermal, Daily Followed by [START ON 05/04/2021] nicotine, 1 patch, Transdermal, Daily Followed by [START ON 05/18/2021] nicotine, 1 patch, Transdermal, Daily pancrelipase (Xgg-Ciac-Uhvz), 2 capsule, Oral, TID with meals pantoprazole, 40 mg, Oral, Daily before breakfast pregabalin, 225 mg, Oral, BID venlafaxine XR, 150 mg, Oral, Daily with breakfast lactated Ringer's, 125 mL/hr, Last Rate: 125 mL/hr (03/25/21 0026) PRN medications: acetaminophen, albuterol, HYDROmorphone, melatonin, ondansetron, oxyCODONE OR oxyCODONE, promethazine, promethazine, Insert peripheral IV AND Saline lock IV AND sodium chloride A & P : ?? This??is a??35 y.o.??female??- Hx of ETOH induced chronic pancreatitis, fibromyalgia, Bipolar disorder, obesity- who is being admitted through ED with 2-day of worsening LUQ abdominal pain. ?? #??Acute on chronic pancreatitis (CMS/HCC) #??Abdominal pain, epigastric # Possible Gastritis based on CT -??IV fluids with lactated Ringer at 125 mL/hour for now -??pain control with Dilaudid & oxycodone as needed and Tylenol. -??full liquid diet and advanced as tolerated -??PPI ?? #??Bipolar depression (CMS/HCC) -??resume venlafaxine and Latuda ?? #??Fibromyalgia -??pain management as above -??resume Lyrica. #??Tobacco abuse -??nicotine replacement -??addiction treatment counselor against use ?? #Obesity (BMI 35.0-39.9 without comorbidity) -??adds to complexity ?? DVT prophylaxis-??Lovenox Code status-full code ?? High-risk/complexity due to intractable abdominal pain requiring IV opioids as above ?? Delbert Horne MD ? * Consults - July Lamas - 03/25/2021 12:06 PM EST Adult Nutrition Evaluation Note Rosibel Gayle 35 y.o. female CSN: [id number] Room/Bed 439/439A Nutrition evaluation type: screen Reason for evaluation: NPO/CLD Hospital course: 35 y/o F admitted 03/23 with 2-day of worsening LUQ abdominal pain. Pt with acute on chronic pancreatitis. Possible gastritis based on CT Past medical/ surgical history: Past Medical History: Diagnosis Date ??? Anxiety ??? Arthritis ??? Depression ??? Fibromyalgia ??? GERD (gastroesophageal reflux disease) ??? Hypertension ??? Nicotine dependence ??? Obesity ??? Pancreatitis Past Surgical History: Procedure Laterality Date ??? CHOLECYSTECTOMY ??? ERCP ??? ESOPHAGOGASTRODUODENOSCOPY ??? HAND SURGERY Additional comments: Per H&P: She lost 30 lb within the past 6 months, unintentional. 03/25: fashion styling intern visited with pt. Pt endorses nausea and diarrhea x 3days usually from consuming food. Pt states she has lost 20#, she weighed 230# a couple months ago and now weighs 209# because she is afraid to eat as it caused pain. 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 Pt denies the need for Boost Breeze as she said she doesn't like the taste. Pt states she is fine to only consume clear liquids until she can tolerate food. Pt denies any food allergies. Vitals and Basic Assessment: BP: (!) 140/91 Temp: 36.4 ??C (97.5 ??F) Oxygen Therapy: None (Room air) [place] Coma Scale Score: 15 Scott Scale Score: 20 Last BM Date: 03/24/21 GI Symptoms: Nausea Skin: right pretibial, lower sternum Allergies: no known food allergies Medications: ascorbic acid, 250 mg, Oral, Daily enoxaparin, 40 mg, Subcutaneous, Daily lurasidone, 40 mg, Oral, Daily with breakfast nicotine, 1 patch, Transdermal, Daily Followed by [START ON 05/04/2021] nicotine, 1 patch, Transdermal, Daily Followed by [START ON 05/18/2021] nicotine, 1 patch, Transdermal, Daily pancrelipase (Uhb-Fxee-Ymlu), 2 capsule, Oral, TID with meals pantoprazole, 40 mg, Oral, Daily before breakfast pregabalin, 225 mg, Oral, BID venlafaxine XR, 150 mg, Oral, Daily with breakfast lactated Ringer's, 125 mL/hr, Last Rate: 125 mL/hr (03/25/21 0026) PRN medications: acetaminophen, albuterol, HYDROmorphone, melatonin, ondansetron, oxyCODONE OR oxyCODONE, promethazine, promethazine, Insert peripheral IV AND Saline lock IV AND sodium chloride Meds were reviewed: Yes Labs: Lab Results Component Value Date WBC 9.76 03/24/2021 HGB 14.8 03/24/2021 HCT 46.9 (H) 03/24/2021 MCV 87 03/24/2021 PLT 305 03/24/2021 Lab Results Component Value Date GLUCOSE 104 (H) 03/24/2021 CALCIUM 9.3 03/24/2021 NA 139 03/24/2021 K 3.9 03/24/2021 CO2 19 (L) 03/24/2021 CL 103 03/24/2021 BUN 3 (L) 03/24/2021 CREATININE 0.73 03/24/2021 Lab Results Component Value Date ALBUMIN 4.4 03/24/2021 Lab Results Component Value Date CALCIUM 9.3 03/24/2021 PHOS 3.1 03/24/2021 Lab Results Component Value Date ALT 17 03/24/2021 AST 18 03/24/2021 ALKPHOS 126 (H) 03/24/2021 BILITOT 0.3 03/24/2021 Lipase: 216 Anthropometrics: Admit Height (CM) 165.1cm Admit Weight (KG) 95.7 kg Current Weight (KG) 95.7kg BMI 35 Weight Evaluation Obese class 2 IBW (KG) 56.8 kg Percent IBW 168% Adjusted Weight (KG) 66.5 kg Weight History Per EMR: Wt Readings from Last 9 Encounters: 03/23/21 95.7 kg (210 lb 15.7 oz) 02/04/21 102 kg (224 lb 3.3 oz) 12/04/20 95.3 kg (210 lb) 12/04/20 99.4 kg (219 lb 2.2 oz) 11/21/20 98 kg (216 lb 0.8 oz) 11/10/20 102 kg (225 lb 12 oz) 10/21/20 90.7 kg (200 lb) 10/18/20 90.7 kg (200 lb) 10/18/20 79.8 kg (176 lb) Additional Comments Estimated Needs: Provided Based On Weight Used Kcal/day -33 ABW Protein/day -93 1.2-1.4 ABW Fluid/day 1ml/kcal or per MD team Additional Comments Current Nutrition Intake: Current Diet Order Clear liquids Avg PO Intakes per RN Flowsheets 0% intake x 1 meal Oral Nutrition Supplements n/a Diet EDU Provided Will monitor need throughout LOS Gnosticist/ Cultural Needs Ethnic needs not identified at this time Additional Comments Nutrition Focused Physical Exam: Physical exam performed on (date): unable to perform- pt in pain 03/25 Assessment of Malnutrition: unable to assess Nutrition Problem: Inadequate energy intake related to chronic pancreatitis as evidenced by clear liquid diet, abdominal pain, and 0% intakes x 1 meal. Status of Nutrition Diagnosis: New Nutrition Interventions and Recommendations: - Continue clear liquid diet, advance to low fat diet as tolerated for pancreatic rest - Pt declined oral nutrition supplement at this time - Rec MVI with mineral daily, continue vitamin C as appropriate - Rec obtaining weight 1x/week. Nutrition Monitoring and Goals: - Will monitor PO intake, weight status, lab results, GI tolerance, and skin integrity. - Pt will have adequate source of nutrition by follow up - Pt will maintain weight this admission. Discharge Planning: RD to monitor for nutrition related discharge needs. Acuity Level: 3 Underwriting Operations Manager:July Lamas Primary RD: Farida Eason RD, LD Cosigned by Farida Eason RD at 03/25/2021 3:04 PM EST * Procedures - Asiya Stark RN - 03/24/2021 6:27 PM ESTAssociated Order(s): Insert peripheral IV Insert peripheral IV Date/Time: 03/24/2021 6:27 PM Performed by: Asiya Stark RN Authorized by: Delbert Horne MD Hand hygiene: Hand hygiene performed prior to insertion Inserted using aseptic techniques: Yes Preparation: Skin prepped with chg Orientation: Left Location: Forearm Catheter placed: Peripheral IV Catheter size: 20g/1.88in Number of attempts: 1 IV flushes: Without difficulty and positive blood return noted and IV luer locked Patient tolerance: Patient tolerated the procedure well, age appropriate response and there were nocomplications IV site covered with: Transparent semipermeable dressing Education provided to: Patient * Progress Notes - Delbert Horne MD - 03/24/2021 3:39 PM EST Seen and examined in the morning, she had severe abdominal pain, the pt was anxious about her pain,she was crying and asking why it is coming back to me. I spoke to her and tried to calm her down, explained to her that her acute attack mostly will improve in the upcoming days and we will try to control her pain as much as we could with the pain killer. She stated she used alcohol heavily in her twenties , and the first time she had acute pancreatitisattack was in the late twenties then she developed chronic pancreatitis and she had cholecystectomydone for her also related to pancreatitis attack She told me she stopped drinking alcohol 7 to 8 months ago, she also had Fibromyalgia with bipolar disease. She lost 30 lb within the past 6 months, as she was avoiding eating for fear of the pain ROS: As above. Ex: Blood pressure (!) 165/94, pulse 67, temperature 35.9 ??C (96.7 ??F), resp. rate 15, height 1.651 m(5' 5 ), weight 95.7 kg (210 lb 15.7 oz), SpO2 94 %, not currently . Constitutional: Alert and coherent without apparent acute respiratory distress , carawled in bed-seems to be in pain Eyes no pallor or jaundice. ENT moist oral mucosa. Neck no JVD, no visible masses CVS normal S1 and S2 regular. Chest good air entry bilateral, no wheezing, no crepitations. Abdomen soft +ve tenderness LUQ and epigastrium- no guarding or rigidity. nondistended bowel soundsheard. Lower limbs no edema, swelling or calf tenderness, good capillary refill. Neurological nonfocal. Skin abrasion on the tip of the nose, skate papules over the dorsum of the right hand. Labs & Imaging: CBC WBC 9.76 Hb 14.8 Plt 305 Hct 46.9 (H) ANC 5.20 BMP Na 139 Cl 103 BUN 3 (L) Glu 104 (H) K 3.9 Co2 19 (L) Cr 0.73 Ca 9.3 Mg 1.9, Phos 3.1 LFT AST 18 AlkPhos 126 (H) T Prot 7.8 ALK 17 Bili 0.3 Alb ?? 0 Lab Value Date/Time LIPASE 216 (H) 03/23/2021 1359 LIPASE 94 (H) 02/03/2021 1904 LIPASE 108 (H) 12/04/2020 1935 LIPASE 43 11/20/2020 0123 LIPASE 23 11/14/2020 2241 LIPASE 190 (H) 11/10/2020 1632 LIPASE 61 10/27/2020 0146 LIPASE 19 10/26/2020 0237 LIPASE 36 10/21/2020 1612 LIPASE 44 10/18/2020 1748 LIPASE 42 10/18/2020 1632 LIPASE 49 04/21/2016 2249 LIPASE 26 04/16/[address] Abdomen: 1. Wall thickening of the distal stomach, which could be artifactual or can be seen with gastritis in the correct clinical setting. Several nondilated fluid- filled loops of small bowel throughout theabdomen which could be seen with enteritis in the correct clinical setting. 2. Unchanged soft tissue mass within the inferior medial right breast. Recommend further evaluationwith follow-up breast ultrasound and physical exam findings if not already performed. Meds: ascorbic acid, 250 mg, Oral, Daily enoxaparin, 40 mg, Subcutaneous, Daily nicotine, 1 patch, Transdermal, Daily Followed by [START ON 05/04/2021] nicotine, 1 patch, Transdermal, Daily Followed by [START ON 05/18/2021] nicotine, 1 patch, Transdermal, Daily venlafaxine XR, 150 mg, Oral, Daily with breakfast lactated Ringer's, 125 mL/hr, Last Rate: 125 mL/hr (03/23/21 2235) PRN medications: acetaminophen, albuterol, HYDROmorphone, melatonin, ondansetron, oxyCODONE OR oxyCODONE, promethazine, promethazine, Insert peripheral IV AND Saline lock IV AND sodium chloride A & P : This is a 35 y.o. female - Hx of ETOH induced chronic pancreatitis, fibromyalgia, Bipolar disorder,obesity- who is being admitted through ED with 2- day of worsening LUQ abdominal pain. ?? # Acute on chronic pancreatitis (CMS/HCC) # Abdominal pain, epigastric # Possible Gastritis based on CT - IV fluids with lactated Ringer at 125 mL/hour for now - pain control with Dilaudid & oxycodone as needed and Tylenol. - clear liquid diet and advanced as tolerated - PPI ?? # Bipolar depression (CMS/HCC) - resume venlafaxine and Latuda ?? # Fibromyalgia - pain management as above - resume Lyrica once verified ?? # Tobacco abuse - nicotine replacement - addiction treatment counselor against use ?? #Obesity (BMI 35.0-39.9 without comorbidity) - adds to complexity ?? DVT prophylaxis- Lovenox Code status-full code ?? High-risk/complexity due to intractable abdominal pain requiring IV opioids as above Delbert Horne MD ?? * H&P - Carlton Grajeda MD - 03/23/2021 7:31 PM ESTAssociated Order(s): Consult to [facility] Consult to [facility] Consult performed by: Carlton Grajeda MD Consult ordered by: DANIA Valdivia Reason for consult: Admission History Of Present Illness Rosibel Gayle is a 35 y.o. female - Hx of ETOH induced chronic pancreatitis, fibromyalgia, Bipolar disorder, obesity- who is being admitted through ED with 2-day of worsening LUQ abdominal pain. The patient reports having been diagnosed with acute pancreatitis for the 1st time around 7 years ago that has progressed to chronic pancreatitis since then. At baseline, she reports continued dull epigastric abdominal pain that is 2 to 3/10 in intensity with associated diarrhea. Two days ago, she had worsening stabbing left upper quadrant abdominal pain radiating to the back. This is associated with nausea but no vomiting. No change in her chronic diarrhea. No associated fever. The patient reports the pain to be worse with trying to eat or drink. She attempted to relieve the pain by heat packs, Tylenol, and ibuprofen without success. Thus she came into the emergency room for further evaluation. The patient states that she has stopped drinking alcohol since she was diagnosed with pancreatitis,last alcohol drink was more than 6 months ago. She admits to smoking marijuana, stopped around a month ago. No reported hematemesis or melena. No reported dysuria or frequency. She lost 30 lb within the past 6 months, unintentional. She just completed her period. Past Medical History She has a past medical history of Anxiety, Arthritis, Depression, Fibromyalgia, GERD (gastroesophageal reflux disease), Hypertension, Nicotine dependence, Obesity, and Pancreatitis.She has no past medical history of Adverse effect of anesthesia, Asthma, Awareness under anesthesia, Cancer ([facility]),CHF (congestive heart failure) ([facility]), COPD (chronic obstructive pulmonary disease) ([facility]), Coronary artery disease, Delayed emergence from general anesthesia, Diabetes mellitus ([facility]), Disease of thyroid gland, Hard to intubate, History of transfusion, Malignant hyperthermia, PONV (postoperative nausea and vomiting), Pseudocholinesterase deficiency, Spinal headache, or Stroke ([facility]). Surgical History She has a past surgical history that includes Cholecystectomy; ERCP; Esophagogastroduodenoscopy; and Hand surgery. Family History Family History Problem Relation Name Age of Onset ??? Hypertension Mother ??? No Known Problems Father Social History She reports that she has been smoking cigarettes. She has a 7.50 pack-year smoking history. She hasnever used smokeless tobacco. She reports previous alcohol use. She reports current drug use. Frequency: 4.00 times per week. Drug: Marijuana. Allergies Morphine and related and Tramadol Medications Current Facility-Administered Medications Medication Dose Route Frequency Provider Last Rate Last Admin ??? acetaminophen (Tylenol) tablet 1,000 mg 1,000 mg Oral q6h PRN Carlton Grajeda MD ??? albuterol 108 (90 Base) MCG/ACT inhaler 2 puff 2 puff Inhalation q4h PRN Carlton Grajeda MD ??? ascorbic acid (Vitamin C) tablet 250 mg 250 mg Oral Daily Carlton Grajeda MD ??? enoxaparin (Lovenox) syringe 40 mg 40 mg Subcutaneous Daily Carlton Grajeda MD ??? HYDROmorphone (Dilaudid) injection 0.5 mg 0.5 mg Intravenous q4h PRN Carlton Grajeda MD ??? lactated Ringer's infusion 125 mL/hr Intravenous Continuous Carlton Grajeda MD ??? melatonin tablet 3 mg 3 mg Oral Nightly PRN Carlton Grajeda MD ??? nicotine (Nicoderm CQ) 21 MG/24HR patch 1 patch 1 patch Transdermal Daily Carlton Grajeda MD Followed by ??? [START ON 05/04/2021] nicotine (Nicoderm CQ) 14 MG/24HR patch 1 patch 1 patch Transdermal Daily Carlton Grajeda MD Followed by ??? [START ON 05/18/2021] nicotine (Nicoderm CQ) 7 MG/24HR patch 1 patch 1 patch Transdermal Daily Carlton Grajeda MD ??? ondansetron (Zofran) injection 4 mg 4 mg Intravenous q6h PRN Carlton Grajeda MD ??? oxyCODONE (Roxicodone) immediate release tablet 5 mg 5 mg Oral q4h PRN Carlton Grajeda MD Or ??? oxyCODONE (Roxicodone) immediate release tablet 10 mg 10 mg Oral q4h PRN Carlton Grajeda MD ??? promethazine (Phenergan) injection 12.5 mg 12.5 mg Intravenous q4h PRN Carlton Grajeda MD ??? promethazine (Phenergan) tablet 12.5 mg 12.5 mg Oral q4h PRN Carlton Grajeda MD ??? sodium chloride 0.9 % flush 10 mL 10 mL Intravenous q8h PRN Carlton Grajeda MD ??? [START ON 03/24/2021] venlafaxine XR (Effexor-XR) 24 hr capsule 150 mg 150 mg Oral Daily with breakfast Carlton Grajeda MD Current Outpatient Medications Medication Sig Dispense Refill ??? acetaminophen (Tylenol) 500 MG tablet Take 1,000 mg by mouth every 6 (six) hours if needed for mild pain. ??? ascorbic acid (Vitamin C) 250 MG tablet Take 1 tablet (250 mg total) by mouth 1 (one) time eachday. 30 tablet 11 ??? Latuda 40 MG tablet TAKE 1 TABLET BY MOUTH IN THE EVENING WITH FOOD ??? naloxone (Narcan) 4 mg/0.1 mL nasal spray Administer 1 spray (4 mg total) into affected nostril(s) if needed for opioid reversal or respiratory depression. Call 911. Give 4 mg (1 spray) into one nostril. Repeat every 2-3 minutes as needed, alternating nostrils, until medical assistance arrives.1 each 2 ??? pregabalin (Lyrica) 300 MG capsule Take 300 mg by mouth 2 (two) times a day. ??? venlafaxine XR (Effoxor-XR) 150 MG 24 hr capsule TAKE 1 CAPSULE BY MOUTH ONCE DAILY IN THE MORNING Review of Systems 14 point systems reviewed pertinent positives and negatives per history of present illness otherwise negative Physical Exam Constitutional: Alert and coherent without apparent acute respiratory distress , carawled in bed-seems to be in pain Eyes no pallor or jaundice. ENT moist oral mucosa. Neck no JVD, no visible masses CVS normal S1 and S2 regular. Chest good air entry bilateral, no wheezing, no crepitations. Abdomen soft +ve tenderness LUQ and epigastrium- no guarding or rigidity. nondistended bowel soundsheard. Lower limbs no edema, swelling or calf tenderness, good capillary refill. Neurological nonfocal. Skin abrasion on the tip of the nose, skate papules over the dorsum of the right hand. Last Recorded Vitals Blood pressure (!) 146/94, pulse 84, temperature 36.8 ??C (98.2 ??F), temperature source Oral, resp. rate 17, height 1.651 m (5' 5 ), weight 95.7 kg (210 lb 15.7 oz), SpO2 95 %, not currently . Relevant Results Labs in last 18 hours CBC WBC 9.42 Hb 12.5 Plt 247 Hct 38.8 ANC ?? INR ??, PTT ??, Anti-Xa ?? BMP Na 136 Cl 100 BUN 4 (L) Glu 96 K 3.5 (L) Co2 22 Cr 0.58 (L) Ca 8.8 (L) iCa ?? Mg ??, Phos ?? Lactate ?? LFT AST 17 AlkPhos 97 T Prot 7.0 ALK 15 Bili <0.2 (L) Alb ?? D.Bili ?? CT Abdomen Pelvis w IV Contrast [[id number]] Resulted: 03/23/211836 Impression: ?? 1. Wall thickening of the distal stomach, which can be seen with gastritis. Approved by Dillon Francisco D.O. on 03/23/2021 6:28 PM Assessment/Plan Principal Problem: Acute on chronic pancreatitis (CMS/HCC) Active Problems: Bipolar depression (CMS/HCC) Fibromyalgia Tobacco abuse Abdominal pain, epigastric Obesity (BMI 35.0-39.9 without comorbidity) This is a 35 y.o. female - Hx of ETOH induced chronic pancreatitis, fibromyalgia, Bipolar disorder,obesity- who is being admitted through ED with 2- day of worsening LUQ abdominal pain. # Acute on chronic pancreatitis (CMS/HCC) # Abdominal pain, epigastric # Possible Gastritis based on CT - admit inpatient meds - IV fluids with lactated Ringer at 125 mL/hour - pain control with Dilaudid 0.5 mg q.4 hours x2 doses. Otherwise will start oxycodone 5-10 mg every 4 hours as needed and Tylenol. - clear liquid diet and advanced as tolerated - PPI # Bipolar depression (CMS/HCC) - resume venlafaxine and Latuda # Fibromyalgia - pain management as above - resume Lyrica once verified # Tobacco abuse - nicotine replacement - addiction treatment counselor against use #Obesity (BMI 35.0-39.9 without comorbidity) - adds to complexity DVT prophylaxis- Lovenox Code status-full code High-risk/complexity due to intractable abdominal pain requiring IV opioids as above * ED Provider Notes - Mera Diehl PA - 03/23/2021 1:07 PM EST Images from the original note were not included. HPI Chief Complaint Patient presents with ??? Abdominal Pain Patient is a 35-year-old female who presents to the emergency room with reports of having abdominalpain to the left upper quadrant and epigastric region. Patient also reports nausea/vomiting and diarrhea. Patient reports symptoms started 2 days ago. Patient reports she does have a history pancreatitis with similar pain in the past. Patient denies any blood in stool or in emesis. Patient denies any black tarry stools. Patient denies any fever chills. Patient denies any urinary symptoms. Patientdenies any vaginal bleeding or vaginal discharge. Patient denies any chest pain, shortness of air, wheezing or stridor. Patient denies any headache or visual changes. Patient denies any tinnitus. Patient denies any numbness/tingling or weakness for patient denies any other problems or complaints. 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 Drug use: Yes Frequency: 4.0 times per week Types: Marijuana Comment: daily use none Occupational History ??? [...] viral test in the last 14 days? Yes - Negative result Do you have any of the following new or worsening symptoms? None of these Have you traveled internationally or domestically in the last month? No Travel History Travel since 02/20/21 No documented travel since 02/20/21 Relevant Domestic Travel History: NA Immunization History not reviewed VACCINE/DOSE DATE DATE Flu 11/21/2019 12/27/2020 Tetanus Pneumovax Shingles Allergies Allergen Reactions ??? Morphine And Related Other Burning ??? Tramadol Dizziness and Rash Review of Systems Review of Systems Constitutional: Negative for chills, diaphoresis, fatigue, fever and unexpected weight change. HENT: Negative for facial swelling and trouble swallowing. Eyes: Negative for photophobia, pain, redness and visual disturbance. Respiratory: Negative for cough, chest tightness, shortness of breath, wheezing and stridor. Cardiovascular: Negative for chest pain, palpitations and leg swelling. Gastrointestinal: Positive for abdominal pain, diarrhea, nausea and vomiting. Negative for abdominal distention, anal bleeding, blood in stool, constipation and rectal pain. Genitourinary: Negative for decreased urine volume, difficulty urinating, dysuria, flank pain, frequency, hematuria, pelvic pain, urgency, vaginal bleeding, vaginal discharge and vaginal pain. Musculoskeletal: Negative for back pain, neck pain and neck stiffness. Skin: Negative. Neurological: Negative for dizziness, tremors, seizures, weakness, light- headedness, numbness and headaches. Psychiatric/Behavioral: Negative for behavioral problems. The patient is not nervous/anxious. Physical Exam ED Triage Vitals [03/23/21 1326] Temp Heart Rate Resp BP 36.7 ??C (98 ??F) 94 18 (!) 172/109 SpO2 Temp Source Heart Rate Source Patient [...] exudate. Eyes: Extraocular Movements: Extraocular movements intact. Pupils: [...] than 2 seconds. Coloration: Skin is not mottled or pale. Findings: No erythema. Neurological: General: No focal deficit present. Mental Status: She is alert and oriented to person, place, and time. Psychiatric: Mood and Affect: Mood normal. Behavior: Behavior normal. ED Course & MDM Labs Reviewed COMPREHENSIVE METABOLIC PANEL, PLASMA - Abnormal Result Value Glucose, Plasma 96 BUN, Plasma 4 (*) Creatinine, Plasma 0.58 (*) BUN/Creatinine Ratio 7 Sodium, Plasma 136 Potassium, Plasma 3.5 (*) Chloride, Plasma 100 CO2, Plasma 22 Anion Gap 14 Total Calcium, Plasma 8.8 (*) Total Protein 7.0 Albumin, Plasma 4.1 AST, Plasma 17 ALT, Plasma 15 Alkaline Phosphatase, Plasma 97 Total Bilirubin, Plasma <0.2 (*) eGFR >60 eGFR, if AFR/AM >60 LIPASE, PLASMA - Abnormal Lipase, Plasma 216 (*) URINALYSIS WITH REFLEX MICROSCOPIC - Abnormal Color, Urine Yellow Clarity, Urine Clear Spec [place], Urine 1.018 pH, Urine 7.0 Protein, Urine Negative Glucose, Urine Negative Ketones, Urine Negative Blood, Urine Trace (*) Bilirubin, Urine Negative Urobilinogen, Urine 0.2 Leukocytes, Urine Negative Nitrite, Urine Negative RBC, Urine 3 WBC, Urine 0 - 5 Squamous Epithelial Cells 0 - 5 Hyaline Casts 0 - 8 Bacteria, Urine Negative SARS COV2 COVID 19/INFLUENZA A, B - Normal SARS CoV-2/COVID-19 RNA PCR Result Not Detected Influenza A Virus PCR Result Not Detected Influenza B Virus PCR Result Not Detected Narrative: This test was performed using the [employer] [...] clinical signs and symptoms consistent with COVID-19. CBC W/O DIFFERENTIAL - Normal WBC Count 9.42 RBC Count 4.59 HGB 12.5 HCT 38.8 Platelet Count 247 MCV 85 MCH 27.2 MCHC 32.2 RDW 14.1 MPV 9.8 nRBC 0.0 LACTATE, VENOUS - Normal Lactate, Venous, Whole Blood 1.9 TEST QUALITATIVE PLASMA - Normal Test Negative Narrative: Reference Range: Males and non- females: Negative. SARS COV-2/COVID-19 BY PCR URINALYSIS MICROSCOPIC FOR UA REFLEX COMPREHENSIVE METABOLIC PANEL, PLASMA CBC WITH AUTO DIFFERENTIAL MAGNESIUM, PLASMA PHOSPHORUS, PLASMA CT Abdomen Pelvis w IV Contrast Preliminary Result 1. Wall thickening of the distal stomach, which can be seen with gastritis. CRITICAL RESULT: No. COMMUNICATION: Per this written report. Approved by Dillon Francisco D.O. on 03/23/2021 6:28 PM ED Course as of 03/23/211955 Sat Mar 23, 2021 1701 Patient's hCG is negative. Patient with a CMP completed with no significant or critical findings. Patient with a COVID swab completed and influenza swab completed with both being negative. Patient's lactate is normal. Patient's hCG is negative. Patient's CBC completed with no significant or critical findings. Patient's lipase is 216 which is the highest patient has had looking at patient's most recent labs. Patient with a UA completed with no significant or critical findings. 1955 CT Abdomen Pelvis w IV Contrast IMPRESSION: 1. Wall thickening of the distal stomach, which can be seen with gastritis. Clinical Impressions as of 03/23/211955 Acute on chronic pancreatitis (CMS/HCC) Other acute gastritis without hemorrhage MDM Number of Diagnoses or Management Options Acute on chronic pancreatitis (CMS/HCC) Other acute gastritis without hemorrhage Diagnosis management comments: Patient is a 35-year-old female who presents to the emergency room with reports of having abdominal pain to the left upper quadrant and epigastric region. Patient also reports nausea/vomiting and diarrhea. Patient reports symptoms started 2 days ago. Patient reports she does have a history pancreatitis with similar pain in the past. Patient was given fentanyl/Dilaudid for pain and Zofran/Phenergan for nausea. Patient was given 1000 mL of normal saline. Patient with labs completed: Patient's hCG is negative. Patient with a CMP completed with no significant or critical findings. Patient with a COVID swab completed and influenza swab completed with both being negative. Patient's lactate is normal. Patient's hCG is negative. Patient's CBC completed with no significant or critical findings. Patient's lipase is 216 which is the highest patient has had looking atpatient's most recent labs. Patient with a UA completed with no significant or critical findings. Patient with a CT scan to abdomen/pelvis completed with findings per Radiology: IMPRESSION: 1. Wall thickening of the distal stomach, which can be seen with gastritis. Due to patient with elevated lipase and due to findings on CT scan will look at admitting patient for further treatment evaluation. Did discuss patient with Internal Medicine with Internal Medicine following up with patient in the EDfor further evaluation with recommending patient to be admitted to their services for further treatment and evaluation. Did discuss with patient concerning lab results, CT scan results and concerningadmission with patient verbalizing understanding and agreeable with admission. Patient with no further questions. Amount and/or Complexity of Data Reviewed Clinical lab tests: ordered and reviewed Tests in the radiology section of CPT??: ordered and reviewed Decide to obtain previous medical records or to obtain history from someone other than the patient:yes Patient Progress Patient progress: stable DANIA Valdivia 03/23/212024 Cosigned by Michelle Perez MD at 03/23/2021 8:25 PM EST Associated attestation - Michelle Perez MD - 03/23/2021 8:25 PM EST Seen by AJAY only. * ED Triage Notes - Hetal Donovan RN - 03/23/2021 1:07 PM EST Patient has chronic pancreatitis and states she has had severe LUQ abdominal pain for the past 3 days with n/v/d. Patient is able to drink but immediately has diarrhea. Food intake has also been minimal. documented in this encounter Plan of Treatment Scheduled Orders Name Type Priority Associated Diagnoses Orde r Schedule SARS CoV-2/COVID-19 by PCR Microbiology Routine Once (Lab) for 1 Occurrences starting 03/23/2021 until 03/23/2021 documented as of this encounter Procedures Procedure Name Priority Date/Time Associated Diagnosis Comments INSERT PERIPHERAL IV Routine 03/30/2021 2:27 PM EST CBC W/O DIFFERENTIAL Routine 03/30/2021 9:08 AM EST MAGNESIUM, PLASMA Routine 03/30/2021 9:0 8 AM EST LIPASE, PLASMA Routine 03/30/2021 9:08 AM EST BASIC METABOLIC PANEL, PLASMA Routine 03/30/2021 9:08 AM EST US GUIDED IV INSERTION Routine 4:11 AM EST CBC W/O DIFFERENTIAL Routine 03/28/2021 9:46 AM EST MAGNESIUM, PLASMA Routine 03/28/2021 9:4 6 AM EST BASIC METABOLIC PANEL, PLASMA Routine 03/28/2021 9:46 AM EST INSERT PERIPHERAL IV Routine 03/24/2021 6:27 PM EST CBC WITH AUTO DIFFERENTIAL Routine 03/24/2021 6:17 AM EST PHOSPHORUS, PLASMA Routine 03/24/2021 6: 17 AM EST MAGNESIUM, PLASMA Routine 03/24/2021 6:1 7 AM EST COMPREHENSIVE METABOLIC PANEL, PLASMA Routine 03/24/2021 6:17 AM EST SARS COV2 COVID 19/INFLUENZA A, B STAT 03/23/2021 6:[address] ABDOMEN PELVIS W IV CONTRAST STAT 03/23/2021 5:26 PM EST URINALYSIS MICROSCOPIC FOR UA REFLEX STAT 03/23/2021 1:59 PM EST LACTATE, VENOUS STAT 03/23/2021 1:59 PM EST URINALYSIS WITH REFLEX MICROSCOPIC STAT 03/23/2021 1:59 PM EST CBC W/O DIFFERENTIAL STAT 03/23/2021 1:59 PM EST TEST QUALITATIVE PLASMA STAT 03/23/2021 1:59 PM EST LIPASE, PLASMA STAT 03/23/2021 1:59 PM EST COMPREHENSIVE METABOLIC PANEL, PLASMA STAT 03/23/2021 1:59 PM EST documented in this encounter Results * PERIPHERAL IV (SMARTFORM LINK) (03/30/2021 2:27 PM EST) Asiya Fernandez RN - 03/30/2021 2:27 PM EST Asiya Stark RN ? 03/30/2021 ??2:27 PM Insert peripheral IV Date/Time: 03/30/2021 2:27 PM Performed by: Asiya Stark RN Authorized by: Kena Sanders, DO Hand hygiene: Hand hygiene performed prior to insertion ?? Inserted using aseptic techniques: Yes ?? Preparation: ??Skin prepped with chg Orientation: ??Right and upper Location: ??Arm Catheter placed: ??Peripheral IV Catheter size: ??20g/1.88in Number of attempts: ??1 IV flushes: ??Without difficulty and positive blood return noted and IV luer locked Patient tolerance: ??Patient tolerated the procedure well, age appropriate response and there were no complications IV site covered with: ??Transparent semipermeable dressing Education provided to: ??Patient Kena Sanders DO IV THERAPY ORDERABLES Fi nal Result * (ABNORMAL) Lipase (03/30/2021 9:08 AM EST) Lipase, Plasma 9(L) 19 - 63 U/L 03/30/2021 9:32 AM EST [facility] Blood Venous blood specimen / Unknown Venipuncture / Unknown 03/30/2021 9:08 AM EST 03/30/2021 9:08 AM EST Kena Laniererson DO LAB BLOOD ORDERABLES Fin al Result Performing Organization Address [facility] de Phone Number [facility] [address] [place] [address] * (ABNORMAL) Magnesium (03/30/2021 9:08 AM EST) Magnesium, Plasma 1.7(L) 1.9 - 2.4 mg/dL 03/30/2021 9:32 AM EST [facility] Blood Venous blood specimen / Unknown Venipuncture / Unknown 03/30/2021 9:08 AM EST 03/30/2021 9:08 AM EST [facility] BLOOD ORDER[facility]LES Fin al Result Performing Organization Address City/[facility] Co de Phone Number [facility] [address] [place] [address] * (ABNORMAL) Basic metabolic panel (03/30/2021 9:08 AM EST) Glucose, Plasma 132(H) 74 - 99 mg/dL 03/30/2021 9:32 AM EST [facility] BUN, Plasma 3(L) 7 - 21 mg/dL 03/30/2021 9:32 AM EST [facility] Creatinine, Plasma 0.62 0.60 - 1.10 mg/dL 03/30/2021 9:32 AM EST [facility] BUN/Creatinine Ratio 5 03/30/2021 9:32 AM EST [facility] Sodium, Plasma 138 136 - 145 mmol/L 03/30/2021 9:32 AM EST [facility] Potassium, Plasma 4.1 3.7 - 4.8 mmol/L 03/30/2021 9:32 AM EST [facility] Chloride, Plasma 101 97 - 107 mmol/L 03/30/2021 9:32 AM EST [facility] CO2, Plasma 28 22 - 29 mmol/L 03/30/2021 9:32 AM EST [facility] Anion Gap 9 6 - 16 mmol/L 03/30/2021 9:32 AM EST [facility] Total Calcium, Plasma 8.5(L) 8.9 - 10.2 mg/dL 03/30/2021 9:32 AM EST [facility] eGFR >60 >60 mL/min/1.7 3m*2 03/30/2021 9:32 AM EST [facility] Comment:eGFR = estimated GFR ; eGFR units = mL/min/1.73 sq meters Chronic Kidney Disease is considered if eGFR <60 mL/min/1.73 sq meters Kidney failure is considered if eGFR is <15 mL/min/1.73 sq meters. eGFR assumes steady state plasma creatinine concentration; not applicable if renal function is rapidly changing or patient is on dialysis. eGFR, if AFR/AM >60 >60 mL/min/1.7 3m*2 03/30/2021 9:32 AM EST [facility] Comment:eGFR = estimated GFR [...] blood specimen / Unknown Venipuncture / Unknown 03/30/2021 9:08 AM EST 03/30/2021 9:08 AM EST us Kena Sanders DO LAB BLOOD ORDERABLES Fin al Result [facility] [address] [place] [address] * CBC W/O Differential (03/30/2021 9:08 AM EST) WBC Count 6.35 3.70 - 10.30 10*3/uL LAB HEMATOLOGY METHOD 03/30/2021 9:10 AM EST [facility] RBC Count 4.25 3.90 - 5.20 10*6/uL LAB HEMATOLOGY METHOD 03/30/2021 9:10 AM EST [facility] HGB 11.4 11.2 - 15.7 g/dL LAB HEMATOLOGY METHOD 03/30/2021 9:10 AM EST [facility] HCT 35.7 34.0 - 45.0 % LAB HEMATOLOGY METHOD 03/30/2021 9:10 AM EST [facility] Platelet Count 170 155 - 369 10*3/uL LAB HEMATOLOGY METHOD 03/30/2021 9:10 AM EST [facility] MCV 84 79 - 98 fL LAB HEMATOLOGY METHOD 03/30/2021 9:10 AM EST [facility] MCH 26.8 26.0 - 32.0 pg LAB HEMATOLOGY METHOD 03/30/2021 9:10 AM EST [facility] MCHC 31.9 30.7 - 35.5 g/dL LAB HEMATOLOGY METHOD 03/30/2021 9:10 AM EST [facility] RDW 14.1 11.5 - 14.5 % LAB HEMATOLOGY METHOD 03/30/2021 9:10 AM EST [facility] MPV 9.3 8.8 - 12.5 fL LAB HEMATOLOGY METHOD 03/30/2021 9:10 AM EST [facility] nRBC 0.0 <=0.0 per 100 WBCs LAB HEMATOLOGY METHOD 03/30/2021 9:10 AM EST [facility] Blood Venous blood specimen / Unknown Venipuncture / Unknown 03/30/2021 9:08 AM EST 03/30/2021 9:08 AM EST us Kena Sanders DO LAB BLOOD ORDERABLES Fin al Result [facility] [address] [place] [address] * US Guided IV Insertion (03/30/2021 4:11 AM EST) Narrative SYSTEMGENERATED, 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 - 03/30/2021 4:11 AM EST These images were captured for the placement of an US-guided IV or PICC line placement. Kena Sanders DO IMG US PROCEDURES Final Result * (ABNORMAL) Magnesium (03/28/2021 9:46 AM EST) Magnesium, Plasma 1.7(L) 1.9 - 2.4 mg/dL 03/28/2021 11:20 AM EST [facility] Blood Venous blood specimen / Unknown Venipuncture / Unknown 03/28/2021 9:46 AM EST 03/28/2021 10:11 AM EST Kena Sanders LAB BLOOD ORDERABLES Fin al Result Performing Organization Address City/State/[facility] Co de Phone Number [facility] [address] [place] [address] * (ABNORMAL) Basic metabolic panel (03/28/2021 9:46 AM EST) Pathologist [facility] Glucose, Plasma 99 74 - 99 mg/dL 03/28/2021 11:34 AM EST [facility] BUN, Plasma <3(L) 7 - 21 mg/dL 03/28/2021 11:34 AM EST [facility] Creatinine, Plasma 0.64 0.60 - 1.10 mg/dL 03/28/2021 11:34 AM EST [facility] BUN/Creatinine Ratio 03/28/2021 11:34 AM EST [facility] Comment:Unable to calculate, at least one value is above or below the detection limit. Sodium, Plasma 140 136 - 145 mmol/L 03/28/2021 11:34 AM EST [facility] Potassium, Plasma 4.0 3.7 - 4.8 mmol/L 03/28/2021 11:34 AM EST [facility] Chloride, Plasma 100 97 - 107 mmol/L 03/28/2021 11:34 AM EST [facility] CO2, Plasma 30(H) 22 - 29 mmol/L 03/28/2021 11:34 AM EST [facility] Anion Gap 10 6 - 16 mmol/L 03/28/2021 11:34 AM EST [facility] Total Calcium, Plasma 9.1 8.9 - 10.2 mg/dL 03/28/2021 11:34 AM EST [facility] eGFR >60 >60 mL/min/1.7 3m*2 03/28/2021 11:34 AM EST [facility] Comment:eGFR = estimated GFR ; eGFR units = mL/min/1.73 sq meters Chronic Kidney Disease is considered if eGFR <60 mL/min/1.73 sq meters Kidney failure is considered if eGFR is <15 mL/min/1.73 sq meters. eGFR assumes steady state plasma creatinine concentration; not applicable if renal function is rapidly changing or patient is on dialysis. eGFR, if AFR/AM >60 >60 mL/min/1.7 3m*2 03/28/2021 11:34 AM EST [facility] Comment:eGFR = estimated GFR ; eGFR units = mL/min/1.73 sq meters Chronic Kidney Disease is considered if eGFR <60 mL/min/1.73 sq meters Kidney failure is considered if eGFR is <15 mL/min/1.73 sq meters. eGFR assumes steady state plasma creatinine concentration; not applicable if renal function is rapidly changing or patient is on dialysis. Blood Venous blood specimen / Unknown Venipuncture / Unknown 03/28/2021 9:46 AM EST 03/28/2021 10:11 AM EST Kena Sanders DO LAB BLOOD ORDERABLES Fin al Result Performing Organization Address City/State/[facility] Co de Phone Number [facility] [address] [place] [address] * (ABNORMAL) CBC W/O Differential (03/28/2021 9:46 AM EST) Pathologist [facility] WBC Count 5.88 3.70 - 10.30 10*3/uL LAB HEMATOLOGY METHOD 03/28/2021 10:24 AM EST [facility] RBC Count 4.50 3.90 - 5.20 10*6/uL LAB HEMATOLOGY METHOD 03/28/2021 10:24 AM EST [facility] HGB 12.2 11.2 - 15.7 g/dL LAB HEMATOLOGY METHOD 03/28/2021 10:24 AM EST [facility] HCT 38.3 34.0 - 45.0 % LAB HEMATOLOGY METHOD 03/28/2021 10:24 AM EST [facility] Platelet Count 153(L) 155 - 369 10*3/uL LAB HEMATOLOGY METHOD 03/28/2021 10:24 AM EST [facility] MCV 85 79 - 98 fL LAB HEMATOLOGY METHOD 03/28/2021 10:24 AM EST [facility] MCH 27.1 26.0 - 32.0 pg LAB HEMATOLOGY METHOD 03/28/2021 10:24 AM EST [facility] MCHC 31.9 30.7 - 35.5 g/dL LAB HEMATOLOGY METHOD 03/28/2021 10:24 AM EST [facility] RDW 14.1 11.5 - 14.5 % LAB HEMATOLOGY METHOD 03/28/2021 10:24 AM EST [facility] MPV 10.3 8.8 - 12.5 fL LAB HEMATOLOGY METHOD 03/28/2021 10:24 AM EST [facility] nRBC 0.0 <=0.0 per 100 WBCs LAB HEMATOLOGY METHOD 03/28/2021 10:24 AM EST [facility] Blood Venous blood specimen / Unknown Venipuncture / Unknown 03/28/2021 9:46 AM EST 03/28/2021 10:11 AM EST us Kena Sanders DO LAB BLOOD ORDERABLES Fin al Result Performing Organization Address City/State/[facility] de Phone Number [facility] [address] [place] [address] * PERIPHERAL IV (SMART[employer] LINK) (03/24/2021 6:27 PM EST) Asiya Fernandez RN - 03/24/2021 6:27 PM EST Asiya Stark RN ? 03/24/2021 ??6:27 PM Insert peripheral IV Date/Time: 03/24/2021 6:27 PM Performed by: Asiya Stark RN Authorized by: Delbert Horne MD Hand hygiene: Hand hygiene performed prior to insertion ?? Inserted using aseptic techniques: Yes ?? Preparation: ??Skin prepped with chg Orientation: ??Left Location: ??Forearm Catheter placed: ??Peripheral IV Catheter size: ??20g/1.88in Number of attempts: ??1 IV flushes: ??Without difficulty and positive blood return noted and IV luer locked Patient tolerance: ??Patient tolerated the procedure well, age appropriate response and there were no complications IV site covered with: ??Transparent semipermeable dressing Education provided to: ??Patient Delbert Horne MD IV THERAPY ORDERABLES Fin al Result * Phosphorus (03/24/2021 6:17 AM EST) Phosphorus, Plasma 3.1 2.5 - 4.5 mg/dL 03/24/2021 6:58 AM EST [facility] Blood Venous blood specimen / Unknown Venipuncture / Unknown 03/24/2021 6:17 AM EST 03/24/2021 6:20 AM EST Carlton Grajeda MD LAB BLOOD ORDERABLES Final Result Performing Organization Address City/[facility]/ZIP Co de Phone Number [facility] [address] [place] [address] * Magnesium (03/24/2021 6:17 AM EST) Pathologist [facility] Magnesium, Plasma 1.9 1.9 - 2.4 mg/dL 03/24/2021 6:58 AM EST [facility] Blood Venous blood specimen / Unknown Venipuncture / Unknown 03/24/2021 6:17 AM EST 03/24/2021 6:20 AM EST Carlton Grajeda MD LAB BLOOD ORDERABLES Final Result Performing Organization Address City/[facility]/ZIP Co de Phone Number [facility] [address] [place] [address] * (ABNORMAL) CBC and Differential (03/24/2021 6:17 AM EST) Pathologist [facility] WBC Count 9.76 3.70 - 10.30 10*3/uL LAB HEMATOLOGY METHOD 03/24/2021 6:22 AM EST [facility] RBC Count 5.42(H) 3.90 - 5.20 10*6/uL LAB HEMATOLOGY METHOD 03/24/2021 6:22 AM EST [facility] HGB 14.8 11.2 - 15.7 g/dL LAB HEMATOLOGY METHOD 03/24/2021 6:22 AM EST [facility] HCT 46.9(H) 34.0 - 45.0 % LAB HEMATOLOGY METHOD 03/24/2021 6:22 AM EST [facility] Platelet Count 305 155 - 369 10*3/uL LAB HEMATOLOGY METHOD 03/24/2021 6:22 AM EST [facility] MCV 87 79 - 98 fL LAB HEMATOLOGY METHOD 03/24/2021 6:22 AM EST [facility] MCH 27.3 26.0 - 32.0 pg LAB HEMATOLOGY METHOD 03/24/2021 6:22 AM EST [facility] MCHC 31.6 30.7 - 35.5 g/dL LAB HEMATOLOGY METHOD 03/24/2021 6:22 AM EST [facility] RDW 14.5 11.5 - 14.5 % LAB HEMATOLOGY METHOD 03/24/2021 6:22 AM EST [facility] MPV 10.0 8.8 - 12.5 fL LAB HEMATOLOGY METHOD 03/24/2021 6:22 AM EST [facility] nRBC 0.0 <=0.0 per 100 WBCs LAB HEMATOLOGY METHOD 03/24/2021 6:22 AM EST [facility] Differential Type Automated LAB HEMATOLOGY METHOD 03/24/2021 6:22 AM EST [facility] Neutrophils % 54.0 % LAB HEMATOLOGY METHOD 03/24/2021 6:22 AM EST [facility] Lymphocytes % 40.0 % LAB HEMATOLOGY METHOD 03/24/2021 6:22 AM EST [facility] Monocytes % 5.0 % LAB HEMATOLOGY METHOD 03/24/2021 6:22 AM EST [facility] Eosinophils % 0.0 % LAB HEMATOLOGY METHOD 03/24/2021 6:22 AM EST [facility] Basophils % 1.0 % LAB HEMATOLOGY METHOD 03/24/2021 6:22 AM EST [facility] Immature Granulocytes % 0.0 % LAB HEMATOLOGY METHOD 03/24/2021 6:22 AM EST [facility] Neutrophils Absolute 5.20 1.60 - 6.10 10*3/uL LAB HEMATOLOGY METHOD 03/24/2021 6:22 AM EST [facility] Lymphocytes Absolute 3.94(H) 1.20 - 3.90 10*3/uL LAB HEMATOLOGY METHOD 03/24/2021 6:22 AM EST [facility] Monocytes Absolute 0.50 0.30 - 0.90 10*3/uL LAB HEMATOLOGY METHOD 03/24/2021 6:22 AM EST [facility] Eosinophils Absolute 0.02 0.00 - 0.50 10*3/uL LAB HEMATOLOGY METHOD 03/24/2021 6:22 AM EST [facility] Basophils Absolute 0.06 0.00 - 0.10 10*3/uL LAB HEMATOLOGY METHOD 03/24/2021 6:22 AM EST [facility] Immature Granulocytes Absolute 0.04 0.00 - 0.06 10*3/uL LAB HEMATOLOGY METHOD 03/24/2021 6:22 AM EST [facility] Blood Venous blood specimen / Unknown Venipuncture / Unknown 03/24/2021 6:17 AM EST 03/24/2021 6:20 AM EST Narrative [facility] - 03/24/2021 6:22 AM EST Therapeutic decision making should be based on absolute values, rather than percentages. us Carlton Grajeda MD LAB BLOOD ORDERABLES Final Result [facility] [address] [place] [address] * (ABNORMAL) Comprehensive metabolic panel (03/24/2021 6:17 AM EST) Glucose, Plasma 104(H) 74 - 99 mg/dL 03/24/2021 6:58 AM EST [facility] BUN, Plasma 3(L) 7 - 21 mg/dL 03/24/2021 6:58 AM EST [facility] Creatinine, Plasma 0.73 0.60 - 1.10 mg/dL 03/24/2021 6:58 AM EST [facility] BUN/Creatinine Ratio 4 03/24/2021 6:58 AM EST [facility] Sodium, Plasma 139 136 - 145 mmol/L 03/24/2021 6:58 AM EST [facility] Potassium, Plasma 3.9 3.7 - 4.8 mmol/L 03/24/2021 6:58 AM EST [facility] Chloride, Plasma 103 97 - 107 mmol/L 03/24/2021 6:58 AM EST [facility] CO2, Plasma 19(L) 22 - 29 mmol/L 03/24/2021 6:58 AM EST [facility] Anion Gap 17(H) 6 - 16 mmol/L 03/24/2021 6:58 AM EST [facility] Total Calcium, Plasma 9.3 8.9 - 10.2 mg/dL 03/24/2021 6:58 AM EST [facility] Total Protein 7.8 6.3 - 7.9 g/dL 03/24/2021 6:58 AM EST [facility] Albumin, Plasma 4.4 3.5 - 5.2 g/dL 03/24/2021 6:58 AM EST [facility] AST, Plasma 18 11 - 32 U/L 03/24/2021 6:58 AM EST [facility] ALT, Plasma 17 8 - 33 U/L 03/24/2021 6:58 AM EST [facility] Alkaline Phosphatase, Plasma 126(H) 35 - 104 U/L 03/24/2021 6:58 AM EST [facility] Total Bilirubin, Plasma 0.3 0.2 - 1.1 mg/dL 03/24/2021 6:58 AM EST [facility] eGFR >60 >60 mL/min/1.7 3m*2 03/24/2021 6:58 AM EST [facility] Comment:eGFR = estimated GFR ; eGFR units = mL/min/1.73 sq meters Chronic Kidney Disease is considered if eGFR <60 mL/min/1.73 sq meters Kidney failure is considered if eGFR is <15 mL/min/1.73 sq meters. eGFR assumes steady state plasma creatinine concentration; not applicable if renal function is rapidly changing or patient is on dialysis. eGFR, if AFR/AM >60 >60 mL/min/1.7 3m*2 03/24/2021 6:58 AM EST [facility] Comment:eGFR = estimated GFR [...] blood specimen / Unknown Venipuncture / Unknown 03/24/2021 6:17 AM EST 03/24/2021 6:20 AM EST us Carlton Grajeda MD LAB BLOOD ORDERABLES Final Result [facility] [address] [place] [address] * SARS-CoV-2 COVID-19/Influenza A,B (03/23/2021 6:04 PM EST) SARS CoV-2/COVID-1 9 RNA PCR Result Not Detected Not Detected 03/23/2021 6:41 PM EST [facility] Influenza A Virus PCR Result Not Detected Not Detected 03/23/2021 6:41 PM EST [facility] Influenza B Virus PCR Result Not Detected Not Detected 03/23/2021 6:41 PM EST [facility] Swab Nasopharyngeal structure / Unknown Non-blood Collection / Unknown 03/23/2021 6:04 PM EST 03/23/2021 6:11 PM EST Narrative [facility] - 03/23/2021 6:41 PM EST This test was performed using [...] signs and symptoms consistent with COVID-19. us Mera [facility] LAB MICROBIOLOGY - GENERAL ORDER STACIA Final Result [facility] [address] [place] [address] * CT Abdomen Pelvis w IV Contrast (03/23/2021 5:26 PM EST) Anatomical Region Laterality Modality Abdomen, Pelvis Computed Tomogra phy Impressions 03/23/2021 8:34 PM EST 1. Wall thickening of the distal stomach, which could be artifactual or can be seen with gastritis in the correct clinical setting. Several nondilated fluid-filled loops of small bowel throughout the abdomen which could be seen with enteritis in the correct clinical setting. 2. Unchanged soft tissue mass within the inferior medial right breast. Recommend further evaluation with follow-up breast ultrasound and physical exam findings if not already performed. CRITICAL RESULT: ?? No. COMMUNICATION: Per this written report. Approved by Dillon Francisco D.O. on 03/23/2021 6:28 PM By electronically signing this report, I, the attending physician, attest that I have personally reviewed the images/data for the above examination(s) and agree with the final edited report. Dictated by Dillon Francisco D.O. on 03/23/2021 6:28 PM Signed by Abigail Abbott on 03/23/2021 8:34 PM Narrative 03/23/2021 8:34 PM EST Exam/Procedure: CT ABDOMEN PELVIS W IV CONTRAST ordered by MERA DIEHL, [id number] CLINICAL INDICATION: Nausea/vomiting, history of pancreatitis TECHNIQUE: Imaging of the abdomen and pelvis was performed, from lung bases through pubic symphysis, using spiral technique, following administration of IV contrast, Omnipaque 300, 100 mL. Delayed (excretory phase) images were performed through the kidneys. Reformatted images in the coronal and sagittal planes were generated from the axial data set to facilitate diagnostic accuracy. Total DLP (Dose-Length Product): 1049.10 mGy.cm. Please note: The reported value represents the total of one or more individual components during the CT acquisition on this date and at this time, and as such, the same value may appear in more than one CT report depending on the interpreting/reporting physicians. COMPARISON: CT abdomen pelvis 02/04/2020 FINDINGS: Lung Bases: Stable nodules within the right middle and lower lobes.. Minimal dependent atelectasis. Liver/Gallbladder/Biliary system: The liver demonstrates homogeneous enhancement. Cholecystectomy. No intra- or extra-hepatic biliary ductal dilatation. Spleen: The spleen enhances homogeneously. Pancreas: The pancreas enhances homogeneously. Adrenals: The adrenals are morphologically unremarkable. Kidneys: The kidneys demonstrate symmetric nephrogram and excretion. No renal or ureteral calculi. No hydronephrosis. Bowel/Mesentery: Distal stomach wall thickening with subthreshold fluid filled dilation of the proximal small bowel. The small bowel loops are not dilated. The large bowel loops are not dilated. The appendix is visualized and normal. Vessels/Lymph Nodes: The abdominal aorta is unremarkable. No lymphadenopathy within the abdomen or pelvis. Fluid Survey: No free fluid in the abdomen. No free fluid in the pelvis. Pelvis: The pelvic viscera are unremarkable. Body Wall: Unchanged right breast soft tissue mass. Bones: No acute fracture. Procedure Note True, Abigail Godwin MD - 03/23/2021 Exam/Procedure: CT ABDOMEN PELVIS W IV CONTRAST ordered by MERA DIEHL,[id number] CLINICAL INDICATION: Nausea/vomiting, history of pancreatitis TECHNIQUE: Imaging of the abdomen and pelvis was performed, from lung bases throughpubic symphysis, using spiral technique, following administration of IVcontrast, Omnipaque 300, 100 mL. Delayed (excretory phase) images wereperformed through the kidneys. Reformatted images in the coronal andsagittal planes were generated from the axial data set to facilitatediagnostic accuracy. Total DLP (Dose-Length Product): 1049.10 mGy.cm. Please note: The reportedvalue represents the total of one or more individual components during theCT acquisition on this date and at this time, and as such, the same valuemay appear in more than one CT report depending on theinterpreting/reporting physicians. COMPARISON: CT abdomen pelvis 02/04/2020 FINDINGS: Lung Bases: Stable nodules within the right middle and lower lobes..Minimal dependent atelectasis. Liver/Gallbladder/Biliary system: The liver demonstrates homogeneousenhancement. Cholecystectomy. No intra- or extra-hepatic biliary ductaldilatation. Spleen: The spleen enhances homogeneously. Pancreas: The pancreas enhances homogeneously. Adrenals: The adrenals are morphologically unremarkable. Kidneys: The kidneys demonstrate symmetric nephrogram and excretion. Norenal or ureteral calculi. No hydronephrosis. Bowel/Mesentery: Distal stomach wall thickening with subthreshold fluidfilled dilation of the proximal small bowel. The small bowel loops are notdilated. The large bowel loops are not dilated. The appendix is visualizedand normal. Vessels/Lymph Nodes: The abdominal aorta is unremarkable. Nolymphadenopathy within the abdomen or pelvis. Fluid Survey: No free fluid in the abdomen. No free fluid in the pelvis. Pelvis: The pelvic viscera are unremarkable. Body Wall: Unchanged right breast soft tissue mass. Bones: No acute fracture. IMPRESSION: 1. Wall thickening of the distal stomach, which could be artifactual orcan be seen with gastritis in the correct clinical setting. Severalnondilated fluid-filled loops of small bowel throughout the abdomen whichcould be seen with enteritis in the correct clinical setting. 2. Unchanged soft tissue mass within the inferior medial right breast.Recommend further evaluation with follow-up breast ultrasound and physicalexam findings if not already performed. CRITICAL RESULT: No. COMMUNICATION: Per this written report. Approved by Dillon Francisco D.O. on 03/23/2021 6:28 PM By electronically signing this report, I, the attending physician, [email or web address] I have personally reviewed the images/data for the aboveexamination(s) and agree with the final edited report. Dictated by Dillon Francisco D.O. on 03/23/2021 6:28 PM Signed by Abigail Abbott on 03/23/2021 8:34 PM us Mera NAJERA IMG CT PROCEDURES Final Result * Urinalysis Microscopic Examination (03/23/2021 1:59 PM EST) Urine Urine specimen obtained by clean catch procedure / Unknown Non-blood Collection / Unknown 03/23/2021 1:59 PM EST 03/23/2021 2:09 PM EST us Mera NAJERA [facility] URINE ORDERABLES Final Resul t [facility] [address] [place] [id number] * hCG, serum, qualitative (03/23/2021 1:59 PM EST) Test Negative Negative 03/23/2021 4:48 PM EST [facility] Blood Venous blood specimen / Unknown Venipuncture / Unknown 03/23/2021 1:59 PM EST 03/23/2021 2:09 PM EST Narrative [facility] - 03/23/2021 4:48 PM EST Reference Range: Males and non- females: Negative. us Mera NAJERA LAB BLOOD ORDERABLES Final Resul t [facility] [address] [place] [id number] * (ABNORMAL) Urinalysis with reflex microscopic (03/23/2021 1:59 PM EST) Color, Urine Yellow LAB URINALYSIS - AUTOMATED METHOD 03/23/2021 2:22 PM EST [facility] Clarity, Urine Clear LAB URINALYSIS - AUTOMATED METHOD 03/23/2021 2:22 PM EST [facility] Spec [place], Urine 1.018 <=1.005 to >=1.030 LAB URINALYSIS - AUTOMATED METHOD 03/23/2021 2:22 PM EST [facility] pH, Urine 7.0 4.5 to 8 LAB URINALYSIS - AUTOMATED METHOD 03/23/2021 2:22 PM EST [facility] Protein, Urine Negative Negative mg/dL LAB URINALYSIS - AUTOMATED METHOD 03/23/2021 2:22 PM EST [facility] Glucose, Urine Negative Negative mg/dL LAB URINALYSIS - AUTOMATED METHOD 03/23/2021 2:22 PM EST [facility] Ketones, Urine Negative Negative mg/dL LAB URINALYSIS - AUTOMATED METHOD 03/23/2021 2:22 PM EST [facility] Blood, Urine Trace(A) Negative LAB URINALYSIS - AUTOMATED METHOD 03/23/2021 2:22 PM EST [facility] Bilirubin, Urine Negative Negative LAB URINALYSIS - AUTOMATED METHOD 03/23/2021 2:22 PM EST [facility] Urobilinogen, Urine 0.2 0.2 to 1.0 mg/dL LAB URINALYSIS - AUTOMATED METHOD 03/23/2021 2:22 PM EST [facility] Leukocytes, Urine Negative Negative LAB URINALYSIS - AUTOMATED METHOD 03/23/2021 2:22 PM EST [facility] Nitrite, Urine Negative Negative LAB URINALYSIS - AUTOMATED METHOD 03/23/2021 2:22 PM EST [facility] RBC, Urine 3 0 to 3 /HPF 03/23/2021 2:22 PM EST [facility] Comment:This result was prev iously suppressed from the chart. WBC, Urine 0 - 5 0 to 5 /HPF 03/23/2021 2:22 PM EST [facility] Comment:This result was prev iously suppressed from the chart. Squamous Epithelial Cells 0 - 5 0 to 5 /HPF 03/23/2021 2:22 PM EST [facility] Comment:This result was prev iously suppressed from the chart. Hyaline Casts 0 - 8 0 to 8 /LPF 03/23/2021 2:22 PM EST [facility] Comment:This result was prev iously suppressed from the chart. Bacteria, Urine Negative Negative 03/23/2021 2:22 PM EST [facility] Comment:This result was prev iously suppressed from the chart. Urine Urine specimen obtained by clean catch procedure / Unknown Non-blood Collection / Unknown 03/23/2021 1:59 PM EST 03/23/2021 2:09 PM EST Mera Diehl [facility] LAB URINE ORDERABLES Final Resul t Performing Organization Address City/[facility] Co de Phone Number [facility] [address] [place] [address] * Lactate, venous (03/23/2021 1:59 PM EST) Lactate, Venous, Whole Blood 1.9 0.5 - 2.2 mmol/L LAB HEMATOLOGY METHOD 03/23/2021 2:11 PM EST [facility] Blood Venous blood specimen / Unknown Venipuncture / Unknown 03/23/2021 1:59 PM EST 03/23/2021 2:09 PM EST [facility] Javier PA LAB BLOOD ORDERABLES Final Resul t [facility] [address] [place] [address] * (ABNORMAL) Lipase, Plasma (03/23/2021 1:59 PM EST) Lipase, Plasma 216(H) 19 - 63 U/L 03/23/2021 4:48 PM EST [facility] Blood Venous blood specimen / Unknown Venipuncture / Unknown 03/23/2021 1:59 PM EST 03/23/2021 2:09 PM EST us Mera NAJERA LAB BLOOD ORDERABLES Final Resul t [facility] [address] [place] [address] * (ABNORMAL) Comprehensive Metabolic Panel, Plasma (03/23/2021 1:59 PM EST) Glucose, Plasma 96 74 - 99 mg/dL 03/23/2021 4:48 PM EST [facility] BUN, Plasma 4(L) 7 - 21 mg/dL 03/23/2021 4:48 PM EST [facility] Creatinine, Plasma 0.58(L) 0.60 - 1.10 mg/dL 03/23/2021 4:48 PM EST [facility] BUN/Creatinine Ratio 7 03/23/2021 4:48 PM EST [facility] Sodium, Plasma 136 136 - 145 mmol/L 03/23/2021 4:48 PM EST [facility] Potassium, Plasma 3.5(L) 3.7 - 4.8 mmol/L 03/23/2021 4:48 PM EST [facility] Chloride, Plasma 100 97 - 107 mmol/L 03/23/2021 4:48 PM EST [facility] CO2, Plasma 22 22 - 29 mmol/L 03/23/2021 4:48 PM EST [facility] Anion Gap 14 6 - 16 mmol/L 03/23/2021 4:48 PM EST [facility] Total Calcium, Plasma 8.8(L) 8.9 - 10.2 mg/dL 03/23/2021 4:48 PM EST [facility] Total Protein 7.0 6.3 - 7.9 g/dL 03/23/2021 4:48 PM [facility] Albumin, Plasma 4.1 3.5 - 5.2 g/dL 03/23/2021 4:48 PM EST [facility] AST, Plasma 17 11 - 32 U/L 03/23/2021 4:48 PM EST [facility] ALT, Plasma 15 8 - 33 U/L 03/23/2021 4:48 PM [facility] Alkaline Phosphatase, Plasma 97 35 - 104 U/L 03/23/2021 4:48 PM [facility] Total Bilirubin, Plasma <0.2(L) 0.2 - 1.1 mg/dL 03/23/2021 4:48 PM EST [facility] eGFR >60 >60 mL/min/1.7 3m*2 03/23/2021 4:48 PM EST [facility] Comment:eGFR = estimated GFR ; eGFR units = mL/min/1.73 sq meters Chronic Kidney Disease is considered if eGFR <60 mL/min/1.73 sq meters Kidney failure is considered if eGFR is <15 mL/min/1.73 sq meters. eGFR assumes steady state plasma creatinine concentration; not applicable if renal function is rapidly changing or patient is on dialysis. eGFR, if AFR/AM >60 >60 mL/min/1.7 3m*2 03/23/2021 4:48 PM EST [facility] Comment:eGFR = estimated GFR [...] blood specimen / Unknown Venipuncture / Unknown 03/23/2021 1:59 PM EST 03/23/2021 2:09 PM EST [facility] BLOOD ORDERABLES Final Resul t [facility] [address] [place], [place] [id number] * CBC W/O Differential (03/23/2021 1:59 PM EST) Pathologist [facility] WBC Count 9.42 3.70 - 10.30 10*3/uL LAB HEMATOLOGY METHOD 03/23/2021 2:11 PM EST [facility] RBC Count 4.59 3.90 - 5.20 10*6/uL LAB HEMATOLOGY METHOD 03/23/2021 2:11 PM EST [facility] [facility] HGB 12.5 11.2 - 15.7 g/dL LAB HEMATOLOGY METHOD 03/23/2021 2:11 PM EST [facility] HCT 38.8 34.0 - 45.0 % LAB HEMATOLOGY METHOD 03/23/2021 2:11 PM EST [facility] Platelet Count 247 155 - 369 10*3/uL LAB HEMATOLOGY METHOD 03/23/2021 2:11 PM EST [facility] MCV 85 79 - 98 fL LAB HEMATOLOGY METHOD 03/23/2021 2:11 PM EST [facility] MCH 27.2 26.0 - 32.0 pg LAB HEMATOLOGY METHOD 03/23/2021 2:11 PM EST [facility] MCHC 32.2 30.7 - 35.5 g/dL LAB HEMATOLOGY METHOD 03/23/2021 2:11 PM EST [facility] RDW 14.1 11.5 - 14.5 % LAB HEMATOLOGY METHOD 03/23/2021 2:11 PM EST [facility] MPV 9.8 8.8 - 12.5 fL LAB HEMATOLOGY METHOD 03/23/2021 2:11 PM EST [facility] nRBC 0.0 <=0.0 per 100 WBCs LAB HEMATOLOGY METHOD 03/23/2021 2:11 PM EST [facility] Blood Venous blood specimen / Unknown Venipuncture / Unknown 03/23/2021 1:59 PM EST 03/23/2021 2:09 PM EST Mera NAJERA LAB BLOOD ORDERABLES Final Resul t [facility] [address] [place] [address] documented in this encounter Visit Diagnoses Diagnosis Acute on chronic pancreatitis (CMS/HCC)- Primary Acute on chronic pancreatitis (CMS/HCC) Other acute gastritis without hemorrhage Obesity (BMI 35.0-39.9 without comorbidity) Abdominal pain, epigastric Bipolar depression (CMS/HCC) Bipolar I disorder, most recent episode (or current) depressed, unspecified Fibromyalgia Unspecified myalgia and myositis Tobacco abuse Tobacco use disorder Lice infestation Unspecified pediculosis documented in this encounter Admitting Diagnoses Diagnosis Acute on chronic pancreatitis (CMS/HCC) documented in this encounter Administered Medications Inactive Administered Medications - up to 3 most recent administrations Medication Order MAR Action Action Date Dose Rate Site acetaminophen (Tylenol) tablet 1,000 mg 1,000 mg, Oral, Every 6 hours PRN, Starting on 03/23/21 at 1924, Until 03/31/21 at 1832, Routine, mild pain Given 03/31/2021 12:01 PM EST 1,000 mg Given 03/30/2021 3:13 PM EST 1,000 mg Given 03/25/2021 8:24 AM EST 1,000 mg ascorbic acid (Vitamin C) tablet 250 mg 250 mg, Oral, Daily, First dose on Thu03/23/21 at 1935, Until Discontinued, Routine Given 03/31/2021 7:46 AM EST 250 mg Given 03/30/2021 7:49 AM EST 250 mg Given 03/29/2021 9:40 AM EST 250 mg docusate sodium (Colace) capsule 100 mg 100 mg, Oral, 2 times daily, First dose (after last reorder) on Thu03/27/21 at 2100, Until Discontinued, Routine Given 03/30/2021 7:50 AM EST 100 mg Given 03/29/2021 8:41 PM EST 100 mg Given 03/28/2021 8:56 PM EST 100 mg enoxaparin (Lovenox) syringe 40 mg 40 mg, Subcutaneous, Daily, First dose on Thu03/23/21 at 1935, Until Discontinued, Routine Given 03/30/2021 7:47 AM EST 40 mg Left Lower Abdomen Given 03/29/2021 9:38 AM EST 40 mg Le ft Lower Abdomen Given 03/28/2021 9:51 AM EST 40 mg Le ft Lower Abdomen fentaNYL (Sublimaze) injection 50 mcg 50 mcg, Intravenous, Once, 1 dose, On Thu03/23/21 at 1350, STAT Given 03/23/2021 2:02 PM EST 50 mcg Right Antecubital hydrALAZINE (Apresoline) tablet 50 mg 50 mg, Oral, Once, 1 dose, On Thu03/26/21 at 0500, Routine Given 03/26/2021 5:12 AM EST 50 mg HYDROmorphone (Dilaudid) injection 0.25 mg 0.25 mg, Intravenous, Once, 1 dose, On Thu03/23/21 at 1630, STAT Given 03/23/2021 4:31 PM EST 0.25 mg HYDROmorphone (Dilaudid) injection 0.5 mg 0.5 mg, Intravenous, Once, 1 dose, On Thu03/23/21 at 1440, STAT Given 03/23/2021 2:45 PM EST 0.5 mg Right Antecubital HYDROmorphone (Dilaudid) injection 0.5 mg 0.5 mg, Intravenous, Every 4 hours PRN, 2 doses, Starting on 03/23/21 at 1928, Until 03/24/21 at 0155, Routine, severe breakthrough pain, stop after 48h Given 03/24/2021 1:55 AM EST 0.5 mg Given 03/23/2021 8:09 PM EST 0.5 mg HYDROmorphone (Dilaudid) injection 0.5 mg 0.5 mg, Intravenous, Every 4 hours PRN, Starting on Thu03/24/21 at 0739, Until Thu03/24/21 at 1053, Routine, severe pain, severe breakthrough pain. Given 03/24/2021 7:53 AM EST 0.5 mg HYDROmorphone (Dilaudid) injection 0.5 mg 0.5 mg, Intravenous, Every 2 hour PRN, Starting on Thu03/24/21 at 1100, Until Thu03/26/21 at 1317, Routine, moderate pain, severe pain, severe breakthrough pain. Given 03/26/2021 11:51 AM EST 0.5 mg Given 03/26/2021 8:53 AM EST 0.5 mg Given 03/26/2021 4:15 AM EST 0.5 mg HYDROmorphone (Dilaudid) injection 1 mg 1 mg, Intravenous, Once, 1 dose, On Thu03/25/21 at 1130, Routine Given 03/25/2021 11:16 AM EST 1 mg HYDROmorphone (Dilaudid) injection 1 mg 1 mg, Intravenous, Every 2 hour PRN, Starting on Thu03/26/21 at 1316, Until Annabel 03/28/21 at 0818, Routine, moderate pain, severe pain, severe breakthrough pain. Given 03/28/2021 2:58 AM EST 1 mg Given 03/27/2021 10:04 PM EST 1 mg Given 03/27/2021 5:43 PM EST 1 mg HYDROmorphone (Dilaudid) injection 1 mg 1 mg, Intravenous, Every 4 hours PRN, Starting on Annabel 03/28/21 at 0830, Until 03/30/21 at 0853, Routine, moderate pain, severe pain, severe breakthrough pain. Given 03/30/2021 1:20 AM EST 1 mg Given 03/29/2021 8:12 PM EST 1 mg Given 03/29/2021 2:23 PM EST 1 mg iohexol (OMNIPaque) 300 MG/ML injection 100 mL 100 mL, Intravenous, Once in imaging, 1 dose, Starting on 03/23/21 at 1651, Until 03/23/21 at 1715, Routine, Imaging Protocol Orders Given 03/23/2021 5:15 PM EST 100 mL ketamine (Ketalar) 10 mg in sodium chloride 0.9 % 100 mL IVPB 10 mg, Intravenous, Every 8 hours, First dose (after last reorder) on Thu03/29/21 at 1600, Until Discontinued, at 444 mL/hr, Administer over 15 Minutes, Routine New Bag 03/31/2021 8:27 AM EST 10 mg 444 mL/hr New Bag 03/30/2021 11:52 PM EST 10 mg 444 mL/hr New Bag 03/30/2021 3:11 PM EST 10 mg 444 mL/hr ketorolac (Toradol) injection 15 mg 15 mg, Intravenous, Every 6 hours, 20 doses, First dose on Thu03/29/21 at 1530, Last dose on Thu04/03/21 at 0930, Routine Given 03/31/2021 2:50 PM EST 15 mg Given 03/31/2021 7:46 AM EST 15 mg Given 03/31/2021 3:35 AM EST 15 mg lactated Ringer's infusion 200 mL/hr, Intravenous, Continuous, Starting on 03/23/21 at 1935, Until 03/30/21 at 1412, Routine New Bag 03/30/2021 3:50 AM EST 200 mL/hr 200 mL/ hr New Bag 03/29/2021 11:42 PM EST 200 mL/hr 200 mL/hr New Bag 03/29/2021 1:34 AM EST 200 mL/hr 200 mL/hr lurasidone (Latuda) tablet 40 mg 40 mg, Oral, Daily with breakfast, First dose on Thu03/25/21 at 0800, Until Discontinued, Routine Given 03/30/2021 8:15 PM EST 40 mg Given 03/29/2021 9:16 PM EST 40 mg Given 03/28/2021 8:56 PM EST 40 mg melatonin tablet 3 mg 3 mg, Oral, Nightly PRN, Starting on 03/23/21 at 1930, Until Thu03/31/21 at 1832, Routine, sleep Given 03/25/2021 1:03 AM EST 3 mg nicotine (Nicoderm CQ) 14 MG/24HR patch 1 patch 1 patch, Transdermal, Daily, 14 doses, First dose on Thu05/04/21 at 0900, Last dose on Thu05/17/21 at 0900, Routine nicotine (Nicoderm CQ) 21 MG/24HR patch 1 patch 1 patch, Transdermal, Daily, 42 doses, First dose on Thu03/23/21 at 1935, Last dose on Thu05/03/21 at 0900, Routine Medication Applied 03/30/2021 7:54 AM EST 1 patch Left Arm Medication Applied 03/24/2021 7:36 AM EST 1 patch Left Arm nicotine (Nicoderm CQ) 7 MG/24HR patch 1 patch 1 patch, Transdermal, Daily, 14 doses, First dose on Thu05/18/21 at 0900, Last dose on Thu05/31/21 at 0900, Routine ondansetron (Zofran) injection 4 mg 4 mg, Intravenous, Once, 1 dose, On Thu03/23/21 at 1350, STAT Given 03/23/2021 2:01 PM EST 4 mg Right Antecubital ondansetron (Zofran) injection 4 mg 4 mg, Intravenous, Every 6 hours PRN, Starting on Thu03/23/21 at 1929, Until Thu03/31/21 at 1832, Routine, nausea, vomiting Given 03/28/2021 9:31 PM EST 4 mg Given 03/28/2021 3:33 PM EST 4 mg Given 03/28/2021 4:21 AM EST 4 mg ondansetron ODT (Zofran-ODT) disintegrating tablet 8 mg 8 mg, Oral, 3 times daily before meals, First dose on Thu03/29/21 at 1200, Until Discontinued, Routine Given 03/31/2021 12:02 PM EST 8 mg Given 03/31/2021 7:46 AM EST 8 mg Given 03/30/2021 3:12 PM EST 8 mg oxyCODONE (Roxicodone) immediate release tablet 10 mg 10 mg, Oral, Every 4 hours PRN, Starting on Thu03/23/21 at 1929, Until Thu03/29/21 at 0944, Routine, severe pain Given 03/29/2021 4:51 AM EST 10 mg Given 03/29/2021 12:13 AM EST 10 mg Given 03/28/2021 7:40 PM EST 10 mg oxyCODONE (Roxicodone) immediate release tablet 15 mg 15 mg, Oral, Every 4 hours PRN, Starting on Thu03/29/21 at 0944, Until Thu03/31/21 at 1832, Routine, severe pain Given 03/31/2021 3:00 PM EST 15 mg Given 03/31/2021 12:01 PM EST 15 mg Given 03/31/2021 7:47 AM EST 15 mg oxyCODONE (Roxicodone) immediate release tablet 5 mg 5 mg, Oral, Every 4 hours PRN, Starting on Thu03/23/21 at 1929, Until Thu03/29/21 at 0944, Routine, severe pain Given 03/28/2021 11:55 AM EST 5 mg Given 03/28/2021 11:49 AM EST 5 mg oxyCODONE ER (OxyCONTIN) 12 hr tablet 10 mg 10 mg, Oral, Once, 1 dose, On Thu03/26/21 at 2100, Routine Given 03/26/2021 8:24 PM EST 10 mg oxyCODONE ER (OxyCONTIN) 12 hr tablet 10 mg 10 mg, Oral, 2 times daily, First dose (after last reorder) on Thu03/27/21 at 0945, Until Discontinued, Routine Given 03/30/2021 7:50 AM EST 10 mg Given 03/29/2021 8:41 PM EST 10 mg Given 03/29/2021 9:39 AM EST 10 mg pancrelipase (Creon) 13182 units capsule 2 capsule, Oral, 3 times daily with meals, First dose on Thu03/25/21 at 0900, Until Discontinued, Routine Given 03/31/2021 12:02 PM EST 2 capsule s Given 03/31/2021 7:48 AM EST 2 capsules Given 03/30/2021 3:12 PM EST 2 capsules pantoprazole (Protonix) EC tablet 40 mg 40 mg, Oral, Daily before breakfast, First dose on Thu03/25/21 at 0730, Until Discontinued, Routine Given 03/31/2021 7:48 AM EST 40 mg Given 03/30/2021 7:53 AM EST 40 mg Given 03/29/2021 9:40 AM EST 40 mg pantoprazole (Protonix) injection 40 mg 40 mg, Intravenous, Once, 1 dose, On 03/23/21 at 1910, STAT Given 03/23/2021 7:12 PM EST 40 mg polyethylene glycol (Miralax) packet 17 g 17 g, Oral, Daily, First dose on Thu03/27/21 at 1830, Until Discontinued, Routine Given 03/30/2021 7:53 AM EST 17 g Given 03/28/2021 9:51 AM EST 17 g Given 03/27/2021 6:29 PM EST 17 g pregabalin (Lyrica) capsule 225 mg 225 mg, Oral, 2 times daily, First dose on Thu03/25/21 at 0900, Until Discontinued, Routine Given 03/29/2021 9:39 AM EST 225 mg Given 03/28/2021 8:56 PM EST 225 mg Given 03/28/2021 9:52 AM EST 225 mg pregabalin (Lyrica) capsule 300 mg 300 mg, Oral, 2 times daily, First dose (after last modification) on Thu03/29/21 at 2100, Until Discontinued, Routine Given 03/31/2021 7:48 AM EST 300 mg Given 03/30/2021 8:15 PM EST 300 mg Given 03/30/2021 7:48 AM EST 300 mg promethazine (Phenergan) injection 12.5 mg 12.5 mg, Intravenous, Once, 1 dose, On 03/23/21 at 1645, STAT Given 03/23/2021 4:57 PM EST 12.5 mg promethazine (Phenergan) tablet 12.5 mg 12.5 mg, Oral, Every 4 hours PRN, Starting on 03/23/21 at 1930, Until 03/31/21 at 1832, Routine, nausea, vomiting Given 03/25/2021 8:37 PM EST 12.5 mg Given 03/25/2021 12:34 AM EST 12.5 mg Given 03/24/2021 8:36 PM EST 12.5 mg sodium chloride 0.9 % flush 10 mL 10 mL, Intravenous, Every 8 hours PRN, Starting on 03/23/21 at 1925, Until 03/31/21 at 1832, Routine, line care sodium chloride 0.9 % infusion - 1,000mL 1,000 mL, Intravenous, Once, 1 dose, On 03/23/21 at 1350, STAT New Bag 03/23/2021 2:01 PM EST 1,000 mL 999 mL/hr venlafaxine XR (Effexor-XR) 24 hr capsule 150 mg 150 mg, Oral, Daily with breakfast, First dose on 03/24/21 at 0800, Until Discontinued, Routine Given 03/31/2021 7:48 AM EST 150 mg Given 03/30/2021 7:48 AM EST 150 mg Given 03/29/2021 9:40 AM EST 150 mg documented in this encounter Active and Recently Administered Medications Times are shown in EST. Scheduled Medication Order 03/29/2021 03/30/2021 03/31/2021 ascorbic acid (Vitamin C) tablet 250 mg 250 mg, Oral, Daily, First dose on 03/23/21 at 1935, Until Discontinued, Routine 0940 (Given - Provider: Codie Neal RN) 0749 (Given - Provider: Homero Vazquez RN) 0746 (Given - Provider: Homero Vazquez, CHANDNI) docusate sodium (Colace) capsule 100 mg 100 mg, Oral, 2 times daily, First dose (after last reorder) on Thu03/27/21 at 2100, Until Discontinued, Routine 0939 (Not Given - Provider: Codie Neal RN - Reason: Patient/family refused)2040 (Given - Provider: Veda Morfin) 075 (Given - Provider: Homero Vazquez, CHANDNI)2015 (Not Given - Provider: Lia Nicole RN - Reason: Patient/family refused) 0744 (Not Given - Provider: Homero Vazquez, CHANDNI - Reason: Patient/family refused) enoxaparin (Lovenox) syringe 40 mg 40 mg, Subcutaneous, Daily, First dose on 03/23/21 at 1935, Until Discontinued, Routine 0938 (Given - Provider: Codie Neal RN) 0747 (Given - Provider: Homero Vazquez, CHANDNI) 0747 (Not Given - Provider: Homero Vazquez RN - Reason: Patient/family refused) ketamine (Ketalar) 10 mg in sodium chloride 0.9 % 100 mL IVPB 10 mg, Intravenous, Every 8 hours, First dose (after last reorder) on Thu03/29/21 at 1600, Until Discontinued, at 444 mL/hr, Administer over 15 Minutes, Routine 1855 (New Bag - Provider: Codie Neal, RN)2342 (New Bag - Provider: Veda Morfin) 0752 (Canceled Entry - Provider: Homero Vazquez RN - Comment: no access)1511 (New Bag - Provider: Homero Vazquez, CHANDNI)2352 (New Bag - Provider: Lia Nicole, CHANDNI) 0827 (New Bag - Provider: Homero Vazquez, RN)1600 (Canceled Entry - Provider: Automatic Discharge Provider - Comment: Automatically canceled at discontinue of medication order) ketorolac (Toradol) injection 15 mg 15 mg, Intravenous, Every 6 hours, 20 doses, First dose on Thu03/29/21 at 1530, Last dose on Thu04/03/21 at 0930, Routine 1847 (Given - Provider: Codie Neal RN)2345 (Not Given - Provider: Veda Morfin - Reason: Patient/family refused) 0350 (Given - Provider: Veda Morfin)0947 (Not Given - Provider: Homero Vazquez, CHANDNI - Reason: Loss of IV access)1511 (Given - Provider: Homero Vazquez, CHANDNI)2014 (Given - Provider: Lia Nicole, CHANDNI) 0335 (Given - Provider: Lia Nicole RN)0746 (Given - Provider: Homero Vazquez, CHANDNI)1450 (Given - Provider: Homero Vazquez, RN) lurasidone (Latuda) tablet 40 mg 40 mg, Oral, Daily with breakfast, First dose on Thu03/25/21 at 0800, Until Discontinued, Routine 2116 (Given - Provider: Veda Morfin) 2014 (Given - Provider: Lia Nicole, CHANDNI) nicotine (Nicoderm CQ) 14 MG/24HR patch 1 patch(Linked Group 1) 1 patch, Transdermal, Daily, 14 doses, First dose on Thu05/04/21 at 0900, Last dose on Thu05/17/21 at 0900, Routine nicotine (Nicoderm CQ) 21 MG/24HR patch 1 patch(Linked Group 1) 1 patch, Transdermal, Daily, 42 doses, First dose on Thu03/23/21 at 1935, Last dose on Thu05/03/21 at 0900, Routine 0938 (Not Given - Provider: Codie Neal RN - Reason: Patient/family refused) 0753 (Medication Removed - Provider: Homero Vazquez RN)0754 (Medication Applied - Provider: Homero Vazquez RN) 0743 (Medication Removed - Provider: Homero Vazquez RN)0744 (Not Given - Provider: Homero Vazquez RN - Reason: Patient/family refused) nicotine (Nicoderm CQ) 7 MG/24HR patch 1 patch(Linked Group 1) 1 patch, Transdermal, Daily, 14 doses, First dose on Thu05/18/21 at 0900, Last dose on Thu05/31/21 at 0900, Routine ondansetron ODT (Zofran-ODT) disintegrating tablet 8 mg 8 mg, Oral, 3 times daily before meals, First dose on Thu03/29/21 at 1200, Until Discontinued, Routine 1145 (Given - Provider: Codie Neal RN)1637 (Given - Provider: Codie Neal RN) 0749 (Given - Provider: Homero Vazquez RN)1115 (Given - Provider: Homero Vazquez RN)1512 (Given - Provider: Homero Vazquez, CHANDNI) 0746 (Given - Provider: Homero Vazquez RN)1202 (Given - Provider: Homero Vazquez RN)1700 (Canceled Entry - Provider: Automatic Discharge Provider - Comment: Automatically canceled at discontinue of medication order) oxyCODONE ER (OxyCONTIN) 12 hr tablet 10 mg (CANCELED) 10 mg, Oral, 2 times daily, First dose (after last reorder) on Thu03/27/21 at 0945, Until Discontinued, Routine 0939 (Given - Provider: Codie Neal RN)2041 (Given - Provider: Veda Morfin) 0750 (Given - Provider: Homero Vazquez RN) pancrelipase (Creon) 79961 units capsule 2 capsule, Oral, 3 times daily with meals, First dose on Thu03/25/21 at 0900, Until Discontinued, Routine 0939 (Given - Provider: Codie Neal RN)1146 (Given - Provider: Codie Neal RN)1637 (Given - Provider: Codie Neal RN) 0748 (Given - Provider: Homero Vazquez RN)1114 (Given - Provider: Homero Vazquez RN)1512 (Given - Provider: Homero Vazquez RN) 0748 (Given - Provider: Homero Vazquez RN)1202 (Given - Provider: Homero Vazquez, CHANDNI)1730 (Canceled Entry - Provider: Automatic Discharge Provider - Comment: Automatically canceled at discontinue of medication order) pantoprazole (Protonix) EC tablet 40 mg 40 mg, Oral, Daily before breakfast, First dose on Thu03/25/21 at 0730, Until Discontinued, Routine 0940 (Given - Provider: Codie Neal RN) 0753 (Given - Provider: Homero Vazquez RN) 0748 (Given - Provider: Homero Vazquez RN) polyethylene glycol (Miralax) packet 17 g 17 g, Oral, Daily, First dose on Thu03/27/21 at 1830, Until Discontinued, Routine 0937 (Not Given - Provider: Codie Neal RN - Reason: Patient/family refused) 0753 (Given - Provider: Homero Vazquez RN) 0742 (Not Given - Provider: Homero Vazquez RN - Reason: Patient/family refused) pregabalin (Lyrica) capsule 225 mg (CANCELED) 225 mg, Oral, 2 times daily, First dose on Thu03/25/21 at 0900, Until Discontinued, Routine 0939 (Given - Provider: Codie Neal RN) pregabalin (Lyrica) capsule 300 mg 300 mg, Oral, 2 times daily, First dose (after last modification) on Thu03/29/21 at 2100, Until Discontinued, Routine 2041 (Given - Provider: Veda Morfin) 0748 (Given - Provider: Homero Vazquez RN)2014 (Given - Provider: Lia Nicole RN) 0748 (Given - Provider: Homero Vazquez RN) venlafaxine XR (Effexor-XR) 24 hr capsule 150 mg 150 mg, Oral, Daily with breakfast, First dose on 03/24/21 at 0800, Until Discontinued, Routine 0940 (Given - Provider: Codie Neal, RN) 0748 (Given - Provider: Homero Vazquez RN) 0748 (Given - Provider: Homero Vazquez RN) Continuous Medication Order 03/29/2021 03/30/2021 03/31/2021 lactated Ringer's infusion (CANCELED) 200 mL/hr, Intravenous, Continuous, Starting on 03/23/21 at 1935, Until 03/30/21 at 1412, Routine 0134 (New Bag - Provider: Clarisa Ulloa RN)2342 (New Bag - Provider: Veda Morfin) 0350 (New Bag - Provider: Veda Morfin) PRN Medication Order 03/29/2021 03/30/2021 03/31/2021 acetaminophen (Tylenol) tablet 1,000 mg 1,000 mg, Oral, Every 6 hours PRN, Starting on 03/23/21 at 1924, Until 03/31/21 at 1832, Routine, mild pain 1513 (Given - Provider: Homero Vazquez RN) 1201 (Given - Provider: Homero Vazquez RN) albuterol 108 (90 Base) MCG/ACT inhaler 2 puff 2 puff, Inhalation, Every 4 hours PRN, Starting on 03/23/21 at 1927, Until 03/31/21 at 1832, Routine, wheezing, shortness of breath HYDROmorphone (Dilaudid) injection 1 mg (CANCELED) 1 mg, Intravenous, Every 4 hours PRN, Starting on Annabel 03/28/21 at 0830, Until 03/30/21 at 0853, Routine, moderate pain, severe pain, severe breakthrough pain. 0130 (Given - Provider: Clarisa Ulloa RN)0614 (Given - Provider: Clarisa Ulloa RN)0940 (Given - Provider: Codie Neal, RN)1423 (Given - Provider: Codie Neal, CHANDNI)2011 (Given - Provider: Veda Morfin) 0120 (Given - Provider: Veda Morfin) melatonin tablet 3 mg 3 mg, Oral, Nightly PRN, Starting on 03/23/21 at 1930, Until 03/31/21 at 1832, Routine, sleep ondansetron (Zofran) injection 4 mg 4 mg, Intravenous, Every 6 hours PRN, Starting on 03/23/21 at 1929, Until 03/31/21 at 1832, Routine, nausea, vomiting oxyCODONE (Roxicodone) immediate release tablet 10 mg (CANCELED) 10 mg, Oral, Every 4 hours PRN, Starting on 03/23/21 at 1929, Until 03/29/21 at 0944, Routine, severe pain 0013 (Given - Provider: Clarisa Ulloa RN)0451 (Given - Provider: Clarisa Ulloa RN) oxyCODONE (Roxicodone) immediate release tablet 15 mg(Linked Group 2) 15 mg, Oral, Every 4 hours PRN, Starting on 03/29/21 at 0944, Until 03/31/21 at 1832, Routine, severe pain 1102 (Given - Provider: Codie Neal RN)1637 (Given - Provider: Codie Neal RN)2222 (Given - Provider: Veda Morfin) 0350 (Given - Provider: Veda Morfin)0748 (Given - Provider: Homero Vazquez, CHANDNI)1115 (Given - Provider: Homero Vazquez, CHANDNI)1515 (Given - Provider: Homero Vazquez, CHANDNI)1918 (Given - Provider: Homero Vazquez, RN)2319 (Given - Provider: Lia Nicole, CHANDNI) 0338 (Given - Provider: Lia Nicole, CHANDNI)0747 (Given - Provider: Homero Vazquez, CHANDNI)1201 (Given - Provider: Homero Vazquez, CHANDNI)1500 (Given - Provider: Homero Vazquez, CHANDNI) promethazine (Phenergan) injection 12.5 mg 12.5 mg, Intravenous, Every 4 hours PRN, Starting on 03/23/21 at 1930, Until 03/31/21 at 1832, Routine, nausea, vomiting, Restricted to patients refractory to ondansetron. When rapid onset is required and oral is insufficient or NPO promethazine (Phenergan) tablet 12.5 mg 12.5 mg, Oral, Every 4 hours PRN, Starting on 03/23/21 at 1930, Until Thu03/31/21 at 1832, Routine, nausea, vomiting sodium chloride 0.9 % flush 10 mL(Linked Group 3) 10 mL, Intravenous, Every 8 hours PRN, Starting on 03/23/21 at 1925, Until Thu03/31/21 at 1832, Routine, line care Linked Groups Order Group 1: nicotine (Nicoderm CQ) 21 MG/24HR patch 1 patchJump to med 1 patch, Transdermal, Daily, 42 doses, First dose on Thu03/23/21 at 1935, Last dose on Thu05/03/21 at 0900, Routine Followed by nicotine (Nicoderm CQ) 14 MG/24HR patch 1 patchJump to med 1 patch, Transdermal, Daily, 14 doses, First dose on Thu05/04/21 at 0900, Last dose on Thu05/17/21 at 0900, Routine Followed by nicotine (Nicoderm CQ) 7 MG/24HR patch 1 patchJump to med 1 patch, Transdermal, Daily, 14 doses, First dose on Thu05/18/21 at 0900, Last dose on Thu05/31/21 at 0900, Routine Group 2: oxyCODONE (Roxicodone) immediate release tablet 15 mgJump to med 15 mg, Oral, Every 4 hours PRN, Starting on Thu03/29/21 at 0944, Until Thu03/31/21 at 1832, Routine, severe pain Group 3: Insert peripheral IV (CANCELED) Once, On 03/23/21 at 1926, For 1 occurrence And Saline lock IV (CANCELED) Once, On 03/23/21 at 1926, For 1 occurrence And sodium chloride 0.9 % flush 10 mLJump to med 10 mL, Intravenous, Every 8 hours PRN, Starting on 03/23/21 at 1925, Until 03/31/21 at 1832, Routine, line care documented in this encounter Additional Health Concerns Assessment Noted Time A fall risk assessment has been complete d for the patient 11/21/2020 2:30 PM EDT documented as of this encounter Care Teams Psychologist Educational Relationship Specialty Start Date End Date Elmo Escobar MD PCP - General 10/18/20 01/05/23 documented as of this encounter
--- OUTSIDE RECORDS SUMMARY | 2024-02-03 15:27 | XMS_ITS | Encounter Summary ---
Author Organization [facility] Address [address] [place] [address] Care Team Providers Care Glazing Superintendent Name Role Phone Elmo Escobar MD Primary Care Provider [phone] Encounter Details Date Type Department Care Team (Latest Contact Info) Description 03/23/2021 Travel Social History Tobacco Use Types Packs/Day [...] documented as of this encounter Care Teams Glazing Superintendent Relationship Specialty Start Date End Date Elmo Escobar MD PCP - General 10/18/20 01/05/23 documented as of this encounter
--- OUTSIDE RECORDS SUMMARY | 2024-02-03 15:27 | XMS_ITS | Encounter Summary ---
Author Organization Healthcare Address [address] [place] [address] Care Team Providers Care Batt Packer Name Role Phone Elmo Escobar MD Primary Care Provider [phone] Reason for Visit * Auth/Cert Specialty Diagnoses / Procedures Referred By Contac t Referred To Contact Diagnoses Chronic pancreatitis, unspecified pancreatitis type (CMS/HCC) Trevon Faust MD [address] [place] [address] Phone: tel: fax: [facility] Inpatient [address] [place] [address] Phone: tel: Referral ID Status Reason Start Date Expiration Date Visits Re quested Visits Authorized [id number] 1 Encounter Details Date Type Department Care Team (Late st Contact Info) Description 04/11/2021 9:50 AM EST Ancillary Procedure IV TEAM [address] [facility], [address]nd Floor, [address] [place] [id number] Social History Tobacco Use Types Packs/Day Years [...] Diagnosis Comments US GUIDED IV INSERTION Routine 04/11/2021 9:47 AM EST documented in this encounter Results * US Guided IV Insertion (04/11/2021 9:47 AM EST) Narrative SYSTEMGENERATED, 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 - 04/11/2021 9:47 AM EST These images were captured for the placement of an US-guided IV or PICC line placement. us Trevon Faust MD IMG US PROCEDURES Final Result documented in this encounter Visit Diagnoses Not on filedocumented in this encounter Additional Health Concerns Assessment Noted Time A fall risk assessment has been complete d for the patient 11/21/2020 2:30 PM EDT documented as of this encounter Care Teams Batt Packer Relationship Specialty Start Date End Date Elmo Escobar MD PCP - General 10/18/20 01/05/23 documented as of this encounter
--- OUTSIDE RECORDS SUMMARY | 2024-02-03 15:28 | XMS_ITS | Encounter Summary ---
Author Organization Healthcare Address [address] [place] [address] Care Team Providers Care Manual Writer Name Role Phone Elmo Escobar MD Primary Care Provider [phone] Encounter Details Date Type Department Care Team (Latest Contact Info) Description 02/03/2021 Travel Social History Tobacco Use Types Packs/Day [...] have Coronavirus / COVID-19? No / Unsure 02/03/2021 6:17 PM EST documented as of this encounter Plan of Treatment Not on file documented as of this encounter Visit Diagnoses Not on filedocumented in this encounter Additional Health Concerns Infection Onset Date Last Indicated Resolved Time Rhinovirus 11/03/2020 11/03/2020 02/03/2021 8:03 PM EST COVID-19 Rule-Out 02/03/2021 02/03/2021 02/03/2021 8:01 PM EST Assessment Noted Time A fall risk assessment has been complete d for the patient 11/21/2020 2:30 PM EDT documented as of this encounter Care Teams Manual Writer Relationship Specialty Start Date End Date Elmo Escobar MD PCP - General 10/18/20 01/05/23 documented as of this encounter
--- OUTSIDE RECORDS SUMMARY | 2024-02-03 15:28 | XMS_ITS | Encounter Summary ---
Author Organization Healthcare Address [address] [place] [address] Care Team Providers Care Mop Machine Operator Name Role Phone Elmo Escobar MD Primary Care Provider Encounter Details Date Type Department Care Team ([facility] Contact Info) Description 11/27/2020 Telephone [facility] End[facility] [address] [place] [address] Mariah Astudillo Social History Tobacco Use Types Packs/Day Years [...] have Coronavirus / COVID-19? No / Unsure 11/21/2020 2:20 PM EDT documented as of this encounter Plan of Treatment Not on file documented as of this encounter Visit Diagnoses Not on filedocumented in this encounter Additional Health Concerns Infection Onset Date Last Indicated Resolved Time Rhinovirus 11/03/2020 11/03/202002/03/2021 8:03 PM EST Assessment Noted Time A fall risk assessment has been complete d for the patient 11/21/2020 2:30 PM EDT documented as of this encounter Care Teams Mop Machine Operator Relationship Specialty Start Date End Date Elmo Escobar MD PCP - General 10/18/20 01/05/23 documented as of this encounter
--- OUTSIDE RECORDS SUMMARY | 2024-02-03 15:28 | XMS_ITS | Encounter Summary ---
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 Phone Elmo Escobar MD Primary Care Provider [phone] Reason for Referral * Consultation (Routine) - Closed Specialty Diagnoses / Procedures Referred By Susy burks Referred To Contact Gastroenterology Diagnoses Abdominal pain, epigastric Tricia Clarke MD [address] [place] [address] Phone: tel: fax: Referral ID Status Reason Start Date Expiration Date V isits Requested Visits Authorized [id number] Closed Specialty Services Required 11/16/2020 05/15/2021 1 1 Reason for Visit * Reason Comments Abdominal Pain * Auth/Cert Specialty Diagnoses / Procedures Referred By Susy burks Referred To Contact Diagnoses Acute pancreatitis without infection or necrosis, unspecified pancreatitis type Tricia Clarke MD [address] [place] [address] Phone: tel: fax: [facility] [address] [place] [address] Phone: tel: Referral ID Status Reason Start Date Expiration Date Visits Re quested Visits Authorized [id number] 1 1 Encounter Details Date Type Department Care Team (Latest Contact Info) Description 11/10/2020 2:31 PM EDT - 11/20/2020 6:43 PM EDT Hospital Encounter [facility] [address] [place] [address] Sammy Franco MD [address] [place] [address] Tricia Clarke MD [address] [place] [address] Bret Sanchez MD [address] [place] [address] Acute pancreatitis without infection or necrosis, unspecified pancreatitis type (Primary Dx); Duodenal ulcer; Abdominal pain, epigastric; Acute on chronic pancreatitis (CMS/HCC) Discharge Disposition: [...] Sign Reading Time Taken Comments Blood Pressure 120/82 11/20/2020 7:40 AM EDT Pulse 122 11/20/2020 7:40 AM EDT Temperature 36.7 ??C (98 ??F) 11/20/2020 7:40 AM EDT Respiratory Rate 18 11/20/2020 7:40 AM EDT Oxygen Saturation 97% 11/20/2020 7:40 AM EDT Inhaled Oxygen Concentration - - Weight 102 kg (225 lb 12 oz) 11/10/2020 4:34 PM EDT Height - - Body Mass Index 37.57 10/21/2020 3:37 PM EDT documented in this encounter Discharge Instructions * Discharge Instructions* Lida Frank - 11/20/2020 3:05 PM EDT Images from the original note were not included. Patient Education Epigastric Pain (Uncertain Cause) Epigastric pain is pain in the upper abdomen. It can be a sign of disease. Common causes include: ?? Acid reflux (stomach acid flowing up into the esophagus) ?? Gastritis (irritation of the stomach lining) Most often this is from aspirin or NSAID medicines such as ibuprofen, bacteria called H. pylori, or frequent alcohol use. ?? Peptic ulcer disease ?? Inflammation of the pancreas ?? Gallstone ?? Infection in the gallbladder Pain may be dull or burning. It may spread upward to the chest or to the back. There may be other symptoms such as belching, bloating, cramps or hunger pains. There may be weight loss or poor appetite, nausea or vomiting. Since the cause of your pain is not certain yet,you may need more tests. Sometimes the doctor will treat you for the most likely condition to see if there is improvement before doing more tests. Home care Medicines ?? Antacids help neutralize the normal acids in your stomach.If you don???t like the liquid, you can try a chewable one. You may find one works better than another for you. Overuse can cause diarrheaor constipation. ?? Acid blockers (H2 blockers) decrease acid production. Examples are cimetidine, famotidine, and ranitidine. ?? Acid inhibitors (PPIs) decrease acid production in a different way than the blockers. You may find they work better, but can take a little longer to take effect.?? Examples are omeprazole, lansoprazole, pantoprazole, rabeprazole, and esomeprazole. Many of these are available sbkw-gog-zdsdwhq or available as generics. ?? Take an antacid 30 to 60??minutes after eating and at bedtime, but not at the same time as an acid janki. ?? Try not to take NSAIDs such as ibuprofen. Aspirin may also cause problems, but if taking it for your heart or other medical reasons, talk to your doctor before stopping it; you don't want to causea worse problem, like a heart attack or stroke. Diet ?? If certain foods seem to cause your pain, try not to eat them. Certain foods can worsen symptomsof gastritis. Limit or avoid fatty, fried, and spicy foods, as well as coffee, chocolate, mint, andfoods with high acid content such as tomatoes and citrus fruit and juices (orange, grapefruit, lemon). ?? Eat slowly and chew food well before swallowing. Symptoms of gastritis can be worsened by certain foods. ?? Don't drink alcohol. It can irritate the stomach. ?? Don't consume caffeine, or use tobacco. These can delay healing??and worsen your problem. ?? Try eating smaller meals with snacks in between. ?? Keep an empty stomach for 2 to 3 hours before lying down. ?? Prop the head of the bed up if you have overnight symptoms. This helps acid clear from your esophagus. Follow-up care Follow up with your healthcare provider or as advised. When to seek medical advice Call your healthcare provider right away if any of the following occur: ?? Stomach pain worsens or moves to the right lower part of the abdomen ?? Chest pain appears, or if it worsens or spreads to the chest, back, neck, shoulder, or arm ?? Frequent vomiting (can???t keep down liquids) ?? Blood in the stool or vomit (red or black color) ?? Feeling weak or dizzy, fainting, or having trouble breathing ?? Fever of 100.4??F (38??C) or higher, or as directed by your healthcare provider ?? Abdominal swelling Quiet[employer] last reviewed this educational content on 04/23/2017 ?? [id number] [employer]. [address] [place] [address], [place] [address]. All rights reserved. This information is not intended as a substitute for professional medical care. Always follow your healthcare professional's instructions. Patient Education Taking Opioid Medicines For your health and safety, it???s important to take opioids exactly as directed. This helps ensurethat the medicines work correctly. It also lowers the chances of side effects and the risk for taking too high a dose (overdose). Each different opioid medicine has its own instructions for use. Yourhealthcare provider will help you understand the ones you???re prescribed and how to take them. If you have questions or concerns, be sure to discuss them with your healthcare provider.?? Using opioids safely Opioids can work very well to relieve pain. But taking too much, taking them too long, or taking them incorrectly can be harmful. To help reduce the risks to your health, be sure to follow these safety tips: ?? Know if you are supposed to take the medicine on a regular basis or only as needed. ?? If your medicine is taken on a regular basis, take it on time and in the right dose. If you ayde dose, don???t double up the next dose. ?? Use a medicine log, tom, or calendar to keep track of when you take your medicine. This helps you stay on schedule and avoid missing doses or taking extra doses. ?? When taking liquid doses of opioids, use a measuring spoon or dropper. This way you can be sure to receive the correct dose. ?? Report any side effects that you have to your healthcare provider right away. ?? Don???t cut, crush, or alter your medicine in any way. ?? Don???t take someone else???s opioids or share yours with others. ?? Don???t drive or use dangerous equipment or power tools while taking opioids. ?? Check expiration dates regularly and dispose of any medicines properly.?? Beware of medicine interactions Certain medicines can be dangerous, even fatal, when used with opioids. That???s why it???s important tell your healthcare provider and pharmacist about all of the medicines you???re taking. This includes vkkq-axm-iuhjesl medicines, herbal remedies, supplements, and even illegal or street drugs. Medicines that may be unsafe to use with opioids include: ?? Other xvyy-tag-uqoiexz pain relievers, such as acetaminophen ?? Other prescription opioids ?? Benzodiazepines (clonazepam or alprazolam or other like medicines) ?? Muscle relaxants (cyclobenzaprine or carisoprodol or other like medicines) ?? Hypnotics (sleep aids like zolpidem or other like medicines) WARNING: Never combine opioids with alcohol or street drugs. This can be fatal. Signs and symptoms of opioid overdose Opioids affect the part of the brain that affects breathing. An overdose of opioids can slow breathing down too much and even stop a person???s breathing. This can be fatal. Call 911 right away if anoverdose is suspected in any person. Three neville signs and symptoms to look for are: ?? Narrowing of dark circles in the middle of eyes (pinpoint pupils) ?? Slowed or stopped breathing ?? Unconsciousness. This is when a person passes out and does not respond. Other signs and symptoms to look for include: ?? Limp body ?? Pale face ?? Clammy skin ?? Purple or blue color lips and fingernails ?? Vomiting Storing opioids safely Opioids need to be stored safely. This helps protect others (including adults and children) from accidentally taking the medicine. It also helps prevent the theft and misuse of the medicine. If possible, store the medicine in a locked container or cupboard that others cannot access. Store the medicine in a cool dry place. Avoid bathrooms, if possible. Always return the medicine to its secure location after each use.?? Disposing opioids Unused or opioids must be disposed of properly to prevent harm. Don???t save your medicine or give it to others for any reason. Even a single dose of opioids can lead to if it used by someone other than who the medicine is prescribed for. To dispose of your medicine safely: ?? Find your community???s medicine take-back program. This may involve dropping off the medicine at a local police station or pharmacy. ?? Some pharmacies also have mail-back programs. This typically involves sending the medicine through the mail using a special medicine disposal envelope. If these options are not available to you, ask your healthcare provider for help. FDA guidelines for disposing The FDA also has guidelines for flushing opioids down the toilet or disposing them in the trash. You can learn more at the following website: www.fda.gov/drugs/resourcesforyou/consumers/buyingusingmed icinesafely/ensuringsafeuseofmedicine/safedisposalofmedicines/uxz519860.htm. Before using these options, check with your local water and waste management company to determine if this is allowed in your city or state.?? Stopping opioid treatment If you have been taking an opioid for more than a few weeks, your body gets used to having it. Whenyou stop taking the medicine, withdrawal symptoms may develop that range from mild to severe. The list of possible withdrawal symptoms is very long. They can include: ?? Restlessness and anxiety ?? Muscle aches ?? Sweating ?? Dilated pupils ?? Watery eyes ?? Runny nose ?? Problems sleeping ?? Nausea or vomiting ?? Abdominal cramping ?? Diarrhea ?? Rapid heartbeat To stop opioid treatment safely and to help manage withdrawal symptoms, you will need help from your healthcare provider. In most cases, the amount of medicine you take will be cut down and you will be weaned off the medicine slowly over several weeks. If needed, other medicines and treatments may also be used to help with this process. As the opioid medicine clears from your system, your body will readjust to not having it. Withdrawal symptoms should then go away. How long this takes can vary for every person. Qu[employer] last reviewed this educational content on 09/23/2016 ?? [id number] [employer]. [address] [place] [address]. All rights reserved. This information is not intended as a substitute for professional medical care. Always follow your healthcare professional's instructions. Patient Education Anatomy of the Digestive System Food gives the body the energy needed for life. The digestive system breaks food down into basic nutrients that can be used by the body. The digestive tract is a long, muscular tube that extends fromthe mouth through the stomach and intestines to the anus. As food moves along the digestive tract, it is digested. This means it is changed into substances that can be absorbed into the bloodstream. Certain organs (such as the liver, gallbladder, and pancreas) help with this digestion. Parts of food that can't be digested are turned into stool. This is waste material that is passed out of the body. Digestive system The digestive system is made up of the following: ?? The mouth. Takes in food, breaks it into pieces, and begins the digestion process. ?? The esophagus. Moves food from the mouth to the stomach. ?? The stomach. Breaks food down into a liquid mixture. ?? The liver. Makes bile that helps digest fat. ?? The gallbladder. Stores bile. ?? The pancreas. Makes enzymes that help in digestion. ?? The small intestine. Digests food further and absorbs nutrients. What is left is passed on to the colon as liquid waste. ?? The large intestine (colon). Absorbs water, salt, and minerals from the waste, forming a solid stool. ?? The rectum. Stores stool until a bowel movement happens. ?? The anus. The opening where stool leaves the body. Quietly last reviewed this educational content on 09/23/2017 ?? [id number] [employer]. All rights reserved. This information is not intended as a substitute for professional medical care. Always follow your healthcare professional's instructions. Patient Education Understanding the Pain Response Your pain is important. It can slow healing and keep you from being active. You may have acute or chronic pain. Both types of pain respond to treatment. Work with your healthcare professional. Together you can find relief. Types of pain Acute pain is caused by a health problem or injury. The pain usually goes away when its cause is treated. You may have pain: ?? From an illness or injury that needs emergency care ?? After an operation, such as heart surgery ?? During and after the of your baby Chronic pain lasts for longer than 3??months. It can be caused by a health problem or injury such as arthritis or a shoulder strain. Chronic pain can also exist without a clear cause. Your perception of pain Pain is a complex phenomenon that involves many of the chemicals found naturally in the spinal cordand brain. All pain signals travel to the brain. The brain sends back signals to protect the body. The brain also makes??its own painkillers (endorphins). These can help reduce the pain. 1. Pain starts in 1 or more parts of the body. In some cases, the site of the pain is far from its source. 2. Pain signals move through nerves and up the spinal cord. 3. The brain reads the signals as pain. Natural painkillers are released. 4. The feeling of pain can be??reduced in this way. Quietly last reviewed this educational content on 06/24/2019 ?? [id number] [employer]. All rights reserved. This information is not intended as a substitute for professional medical care. Always follow your healthcare professional's instructions. * Attachments The following attachments cannot be sent through Care Everywhere. * Colonoscopy, Gastroscopy, or ERCP Discharge Instructions - Endoscopy Unit ([place]) (Tunisian) * Constipation (Adult) (Tunisian) documented in this encounter Medications at Time of Discharge acetaminophen (Tylenol) 325 MG tablet Take 2 tablets (650 mg total) by mouth every 6 (six) hours for 10 days. 30 tablet 11/20/2020 12/01/19 21 clotrimazole (Lotrimin) 1 % cream Apply topically 2 (two) times a day for 28 days. 12 g 1 11/06/2020 12/05/19 diclofenac (Voltaren) 1 % topical gel Place 1 application on the skin 4 (four) times a day. 50 g 11/20/2020 12/21/19 lidocaine (Lidoderm) 5 % patch Apply 2 patches topically 1 (one) time each day at the same time. Remove & discard patch within 12 hours or as directed by MD. 60 patch 11/21/2020 12/22/19 ondansetron ODT (Zofran-ODT) 4 MG disintegrating tablet Take 1 tablet (4 mg total) by mouth every 6 (six) hours if needed for nausea or vomiting for up to 7 days. 20 tablet 11/20/2020 12/01/19 oxyCODONE (Roxicodone) 5 MG immediate release tablet Take 1 tablet (5 mg total) by mouth every 4 (four) hours if needed for severe pain for up to 3 days. 18 tablet 11/20/2020 12/01/19 pantoprazole (ProtoNix) 40 MG EC tablet Take 1 tablet (40 mg total) by mouth 1 (one) time each day before breakfast. Do not crush, chew, or split. 30 tablet 11/21/2020 12/22/19 polyethylene glycol (Miralax) 17 g packet Take 17 g by mouth 2 (two) times a day. 60 packet 11/20/2020 12/21/19 21 sucralfate (Carafate) 1 GM/10ML suspension Take 10 mL (1 g total) by mouth every 6 (six) hours. 1200 mL 11/06/2020 12/07/19 ursodiol (Actigall) 300 MG capsule Take 2 capsules (600 mg total) by mouth 2 (two) times a day. 120 capsule 11/20/2020 12/21/19 21 hydrOXYzine pamoate (Vistaril) 25 MG capsule Take 1 capsule (25 mg total) by mouth every 6 (six) hours if needed for anxiety. 30 capsule 11/20/2020 02/05/20 21 Latuda 40 MG tablet Take 40 mg by mouth 1 (one) time each day with breakfast. 10/14/2020 03/20/19 23 melatonin 3 MG tablet Take 3 mg by mouth at night if needed for sleep. 02/05/20 21 methocarbamol (Robaxin) 500 MG tablet Take 500 mg by mouth 3 (three) times a day. 02/05/20 21 naloxone (Narcan) 4 mg/0.1 mL nasal sprayIndications:Op ioid Overdose Administer 1 spray (4 mg total) into affected nostril(s) if needed for opioid reversal or respiratory depression. Call 911. Give 4 mg (1 spray) into one nostril. Repeat every 2-3 minutes as needed, alternating nostrils, until medical assistance arrives. 1 each 2 11/06/2020 02/11/20 21 pancrelipase, Eei-Znzn-Gdhd, (Creon) [id number] units capsule Take 1 capsule by mouth 3 (three) times a day with meals. 02/05/20 21 pregabalin (Lyrica) 300 MG capsule Take 1 capsule (300 mg total) by mouth 2 (two) times a day for 3 days. 6 capsule 11/20/2020 02/05/20 21 venlafaxine XR (Effoxor-XR) 150 MG 24 hr capsule Take 150 mg by mouth 1 (one) time each day. 07/07/2020 03/20/19 23 documented as of this encounter Miscellaneous Notes * Pharmacy note - Thor Gruber, PharmD - 11/20/2020 3:54 PM EDT Spoke to patient regarding discharge medication regimen. The indication, expected duration, potential side effects and administration were discussed for each new medication. Patient verbalized understanding on all points discussed and was engaged in conversation. Relevant questions were asked and answers were provided based directly on plan of care laid out by attending physician and team. Patient was able to teach-back. Drug information sheets were provided to patient and complete medication list is included in discharge packet provided by patient's nurse. Facilitated coordination between RN, patient, family, [facility], and [facility] for processing of new prescriptions. Spoke to patient about Lyrica. Pharmacy is currently out of this medication. Offered to send to patient's home pharmacy, but patient declined. She will take home dose until follow up with PCP, who will assess from there. Prescription that was sent to [facility] meds to beds will be discontinued. Thanks, Thor Gruber, PharmD, [facility] Clinical Pharmacist Available on [employer] and @ [phone] * Discharge Summary - Zo Prieto MD - 11/20/2020 2:07 PM EDT Hospitalization Admit Date/Time: 11/10/2020 2:31 PM Admitting Attending: Tricia Clarke Discharge Date: 11/20/2020 Discharge Attending Physician: Bret Sanchez Md PCP name and Address: Elmo Escobar MD [address] [place] [address] / [place] [address] Referring provider name and address: No referring provider defined for this encounter. Chief Concern, Brief History of Present Illness, and Hospital Course Ms. Lila Mcnally is a 34 yo F with PMH of chronic pancreatitis, cholelithiasis s/p cholecystectomy, de estella choledocholithiasis admitted for acute on chronic epigastric and abdominal pain. Lipase was elevated to 190 on admission, consistent with acute pancreatitis. IV fluids and IV dilaudid were administered for pain control. Diet was advanced as tolerated. MRCP showed no signs of acute or chronic inflammation. GI was consulted and performed EGD on 11/16. It showed normal esophagus, stomach, and duodenum. Her acute on chronic abdominal pain is suspected to be due to biliary dyskinesia or sphincter of Oddi dysfunction. Has follow up appointment with GI on 11/21/20 at 2PM to discuss further intervention for her acute on chronic abdominal pain. Will discharge with topical diclofenac gel, lidocaine patches, 3 days worth of PO oxycodone 5mg q4hPRN for pain. Also increased Pregabalin to 300mg BID to be continued after discharge. Can continue methocarbamol 500mg TID and other home medications as already prescribed. Started ursodiol 600mg BID per GI. Continue after discharge until follow up with GI. Surgeries and Procedures EGD Medication List .. acetaminophen 325 MG tablet Commonly known as: Tylenol Take 2 tablets (650 mg total) by mouth every 6 (six) hours for 10 days. clotrimazole 1 % cream Commonly known as: Lotrimin Apply topically 2 (two) times a day for 28 days. diclofenac 1 % topical gel Commonly known as: Voltaren Place 1 application on the skin 4 (four) times a day. hydrOXYzine pamoate 25 MG capsule Commonly known as: Vistaril Take 1 capsule (25 mg total) by mouth every 6 (six) hours if needed for anxiety. Latuda 40 MG tablet Generic drug: lurasidone TAKE 1 TABLET BY MOUTH IN THE EVENING WITH FOOD lidocaine 5 % patch Commonly known as: Lidoderm Apply 2 patches topically 1 (one) time each day at the same time. Remove & discard patch [id number] hours or as directed by MD. Start taking on: November 21, 2020 melatonin 3 MG tablet Take 3 mg by mouth at night if needed for sleep. methocarbamol 500 MG tablet Commonly known as: Robaxin Take 500 mg by mouth 3 (three) times a day. naloxone 4 mg/0.1 mL nasal spray [...] vomiting for up to 7 days. oxyCODONE 5 MG immediate release tablet Commonly known as: Roxicodone Take 1 tablet (5 mg total) by mouth every 4 (four) hours if needed for severe pain for up to 3 days. pancrelipase (Hwh-Jdpz-Zsgq) [id number] units capsule Commonly known as: Creon Take 1 capsule by mouth 3 (three) times a day with meals. pantoprazole 40 MG EC tablet Commonly known as: ProtoNix Take 1 tablet (40 mg total) by mouth 1 (one) time each day before breakfast. Do not crush, chew, orsplit. Start taking on: November 21, 2020 polyethylene glycol 17 g packet Commonly known as: Miralax Take 17 g by mouth 2 (two) times a day. pregabalin 300 MG capsule Commonly known as: Lyrica Take 1 capsule (300 mg total) by mouth 2 (two) times a day for 3 days. sucralfate 1 GM/10ML suspension Commonly known as: Carafate Take 10 mL (1 g total) by mouth every 6 (six) hours. ursodiol 300 MG capsule Commonly known as: Actigall Take 2 capsules (600 mg total) by mouth 2 (two) times a day. venlafaxine XR 150 MG 24 hr capsule Commonly known as: Effoxor-XR TAKE 1 CAPSULE BY MOUTH ONCE DAILY IN THE MORNING Where to Get Your Medications These medications were sent to [facility] - [place], [place] - [address] [employer] [facility] [address] [facility] [id number] ?? acetaminophen 325 MG tablet ?? diclofenac 1 % topical gel ?? hydrOXYzine pamoate 25 MG capsule ?? lidocaine 5 % patch ?? ondansetron ODT 4 MG disintegrating tablet ?? oxyCODONE 5 MG immediate release tablet ?? pantoprazole 40 MG EC tablet ?? polyethylene glycol 17 g packet ?? pregabalin 300 MG capsule ?? ursodiol 300 MG capsule Discharge Diagnosis Medical Problems Active and Resolved Hospital Problems Hospital * (Principal) Acute pancreatitis without infection or necrosis Abdominal pain, epigastric Post Discharge Instructions None Outpatient Follow-Up Future Appointments Date Time Provider Department Center 11/21/2020 2:00 PM DANIA Gunn 02/26/2021 3:40 PM DANIA Gunn Test Results Pending At Discharge Pending Labs Order Current Status Comprehensive metabolic panel Collected (11/16/20944) Cytomegalovirus (CMV) Quantitative PCR Collected (11/16/20944) Jamel Torres Virus (EBV) Quantitative PCR Collected (11/16/20944) HSV 1/2 Quant, PCR Blood In process Pertinent Physical Exam At Time of Discharge Physical Exam Constitutional: General: She is not in acute distress. HENT: Head: Atraumatic. Cardiovascular: Rate and Rhythm: Normal rate and regular rhythm. Heart sounds: No murmur heard. Pulmonary: Effort: No respiratory distress. Breath sounds: No wheezing. Abdominal: General: There is no distension. Palpations: Abdomen is soft. Tenderness: There is no guarding. Musculoskeletal: Right lower leg: No edema. Left lower leg: No edema. Skin: General: Skin is warm and dry. Neurological: General: No focal deficit present. Discharge Disposition/Condition Disposition: Home Condition: Stable Zo Prieto MD I spent >30 minutes of patient care and instruction time in preparation for this discharge. Cosigned by Bret Sanchez MD at 11/20/2020 6:30 PM EDT Associated attestation - Bret Sanchez MD - 11/20/2020 6:30 PM EDT I saw and evaluated the patient with the resident/fellow. I discussed the case with the resident/fellow and agree with the findings and plan as documented. * Hospital Course - Zo Prieto MD - 11/20/2020 1:47 PM EDT Ms. Lila Mcnally is a 34 yo F with PMH of chronic pancreatitis, cholelithiasis s/p cholecystectomy, de estella choledocholithiasis admitted for acute on chronic epigastric and abdominal pain. Lipase was elevated to 190 on admission, consistent with acute pancreatitis. IV fluids and IV dilaudid were administered for pain control. Diet was advanced as tolerated. MRCP showed no signs of acute or chronic inflammation. GI was consulted and performed EGD on 11/16. It showed normal esophagus, stomach, and duodenum. Her acute on chronic abdominal pain is suspected to be due to biliary dyskinesia or sphincter of Oddi dysfunction. Has follow up appointment with GI on 11/21/20 at 2PM to discuss further intervention for her acute on chronic abdominal pain. Will discharge with topical diclofenac gel, lidocaine patches, 3 days worth of PO oxycodone 5mg q4hPRN for pain. Also increased Pregabalin to 300mg BID to be continued after discharge. Can continue methocarbamol 500mg TID and other home medications as already prescribed. Started ursodiol 600mg BID per GI. Continue after discharge until follow up with GI. * Progress Notes - Omer Valentin LCSW - 11/20/2020 10:11 AM EDT Pt is to d/c today. Pt will d/c home and has transportation. Pt has no needs from at this time. * Progress Notes - Tricia Clarke MD - 11/19/2020 12:29 PM EDT Subjective Ms. Mcnally reports that her abdominal pain is OK right now in her upper abdomen but has been worse at times. She had nausea yesterday and overnight and needed PO phenergan and IV zofran, but she was able to eat her breakfast without difficulty this am. She now reports no bowel movement since admission. Review of Systems Gen: no fevers, chills CV: no chest pain, palpitation Objective Last Recorded Vitals Blood pressure 131/85, pulse 93, temperature 35.7 ??C (96.2 ??F), resp. rate 16, weight 102 kg (225lb 12 oz), SpO2 98 %. General: Comfortable, lying in bed, initially sleeping and accidentally startled awake upon our entering Eyes: sclera anicteric and conjunctiva not injected, bilaterally ENT: Moist mucus membranes CV: Regular rate and rhythm, no murmur, rubs, or gallops Resp: Normal work of breathing. Normal breath sounds without crackles, wheezes, or rhonchi Abdominal: While talking, tenderness to palpation fairly minimal in all areas. No rebound or guarding. Psych: More upbeat mood this am, excited about potential to go home Skin: half-dollar size or annular lesion on right anterior rodríguez, more surrounding erythema, slightly erythematous and blanching Assessment/Plan Ms. Mcnally is a 34-year-old woman with previous diagnosis of chronic pancreatitis, cholelithiasis s/p cholecystectomy, and then de-estella choledocholithiasis s/p ERCP 03/2020 admitted with acute on chronic recurrent epigastric pain, initially meeting criteria for acute pancreatitis withcontinued pain and nausea that are now improving. 1. Acute on chronic abdominal pain, initially with suspected acute on chronic pancreatitis based onlipase and exam; MRCP normal here. Possible biliary dyskinesia/ sphincter of oddi dysfunction. - Weaning oxycodone- 7.5mg q4 PRN today with plan to go to 5mg q4 PRN tomorrow. - Stop IV zofran and change to PO ODT Zofran and PO phenergan for nausea control at home doses - Continue ursodiol as recommended by GI - For constipation, start Miralax BID and Senna - Follow-up in pancreas clinic for further eval and discussion of celiac plexus block and with painclinic] 2. Nonbleeding duodenal ulcer that may be contributing to current pain - EGD today, IV PPI for now, sucrulfate; avoid NSAIDS 3. 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 Chronic Conditions - Fibromyalgia continue Lyrica increased to 300mg BID, home methocarbamol - Anxiety- continue Latuda and venlafaxine, vistaril PRN - Tinea corporis- clotrimazole topical; dermatology follow-up if no improvement - Right breast mass, stable 2 4yrs per patient- PCP follow-up DVT Prophylaxis: Lovenox Code Status: Full * Progress Notes - Omer Valentin, PERFORATOR - 11/19/2020 10:40 AM EDT Pt is not medically ready at this time. Pt anticipated to be ready within 48 hours. Sw will continue to follow and assist as needed. * Progress Notes - Gage Marmolejo MD - 11/18/2020 11:13 AM EDT SUBJECTIVE: NAEO. Patient reports that her pain is controlled currently. Oxy q4h is helping. Discussed droppingdosage down today as she only needed 45 of the possible 60 of oxy she could recieve yesterday and patient agreed this is a good idea. She thinks the increased lyrica dosage is really helping. Would like to get home to her children soon. MEDICATIONS: acetaminophen, 650 mg, Oral, q6h clotrimazole, 1 application, Topical, BID diclofenac, 1 application, Transdermal, 4x daily enoxaparin, 30 mg, Subcutaneous, BID lidocaine, 2 patch, Apply externally, q24h lurasidone, 40 mg, Oral, Daily with breakfast melatonin, 3 mg, Oral, Nightly methocarbamol, 500 mg, Oral, TID pancrelipase (Xwe-[id number]-Nulr), 1 capsule, Oral, TID with meals pantoprazole, 40 mg, Oral, Daily before breakfast pregabalin, 300 mg, Oral, BID sucralfate, 1 g, Oral, q6h INO ursodiol, 600 mg, Oral, BID venlafaxine XR, 150 mg, Oral, Daily with breakfast hydrOXYzine pamoate, ondansetron, ondansetron ODT, oxyCODONE, promethazine, [COMPLETED] Insert peripheral IV AND [COMPLETED] Saline lock IV AND sodium chloride OBJECTIVE: Vitals: 11/18/20 0756 BP: 122/86 Pulse: 102 Resp: Temp: 36.8 ??C (98.3 ??F) SpO2: 93% Weight change: Intake/Output Summary (Last 24 hours) at 11/18/2020 1113 Last data filed at 11/18/2020 0900 Gross per 24 hour Intake 1440 ml Output -- Net 1440 ml PHYSICAL EXAM: GENERAL: no acute distress, cooperative SKIN: warm and dry, no apparent rashes, lesions EYES: conjunctiva clear, EOMI, no proptosis ENT: atraumatic external nose and ears, moist mucous membranes RESPIRATORY: respirations non-labored, equal chest rise, no cyanosis CARDIOVASCULAR: well perfused, no edema GASTROINTESTINAL: non-distended, non-scaphoid MUSCULOSKELETAL: no joint swelling, full range of motion in all extremities NEUROLOGICAL: no focal deficits, interactive and normal tone PSYCHOLOGICAL: AAOx3, appropriate mood and behavior ASSESSMENT/PLAN: 34 yo F hx of chronic pancreatitis, cholelithiasis s/p CCY c/b de estella choledocholithiais s/p ERCP 04/2020, obesity, bipolar, fibromyalgia, recent admission 10/22-11/06 for pancreatitis presents with abdominal pain since 11/07 admitted for acute on chronic pancreatitis. Acute on chronic abdominal pain likely 2/2 chronic pancreatitis -Patient with epigastric pain and lipase of 190 on admission (was wnl throughout recent admission) - MRCP with no signs of acute or chronic inflammation. No structural abnormalities PLAN: - Will arrange for follow up in pancreas clinic - Switching to oxycodone 7.5mg q4h PRN. -Continue scheduled tylenol, topical diclofenac gel and lidocaine patches, methocarbamol TID for muscle cramps - IV Zofran 8mg Q8H prn, PO phenergan and zofran for nausea -Cont increased Lyrica 300mg BID - Patient to establish care with pain management clinic outpatient as previously discussed on discharge 11/06 -HSV, CMV, EBV pending Non-bleeding duodenal ulcer, healing gastric ulcer - Noted on EGD 10/22 during last admission and treated with PPI, sucralfate, opioids, zofran, phenergan - No evidence of GIB currently. Repeat EGD 11/16 with no duodenal ulcer noted PLAN: - Pantoprazole 40mg BID (to end 12/16) - Sucralfate; pain/nausea management as above Fibromyalgia-home lyrica increased to 300 BID Anxiety- home latuda, venlafaxine Tinea corporis-clotrimazole topical BID; PCP follow up Right breast mass-24mm mass, stablex4 years, PCP follow up Obesity-BMI 37 F: PO E: Replete as needed N: Full liquid DVT PPx: pLov FULL CODE Dispo: ultimately discharge to home pending decreased opioid needs; will dc with increased lyrica dose as this is helping; will need follow up with GI pancreas clinic and pain clinic Cosigned by Tricia Clarke MD at 11/18/2020 12:28 PM EDT Associated attestation - Tricia Clarke MD - 11/18/2020 12:28 PM EDT I saw and evaluated the patient with the resident/fellow. I discussed the case with the resident/fellow and agree with the findings and plan as documented. Labs personally reviewed with Cr 0.85, AST/ALT 125->75/169->108, alk phos 138, total bilirubin nml Problem List: - Possible acute on chronic pancreatitis/ biliary dyskinesia/ sphincter of oddi dysfunction with MRCP negative - s/p cholecystectomy after cholecystitis with then development of choledocholithiasis s/p ERCP 04/2020, possible sphincter of Oddi dysfunction on outside ERCP 05/13 without change in symptoms with spincterotomy - Nonbleeding duodenal ulcer resolved on EGD - Tobacco use disorder - Tinea corpora - Chronic conditions: Obesity, Bipolar disorder by report, Anxiety, Fibromyalgia, Hypertension, Right breast mass being followed, marijuana use Ms. Mcnally again feels better this am. As above, she only used 45 mg of oxycodone for the last 24 hours, so will gradually taper after a discussion with her to 7.5mg q4 PRN that will give the same total potential daily dose of 45mg day. Continue diclofenac topical, scheduled Tylenol, lidocaine patch. Continue SNRI and increased lyricadose. Plan follow-up in pancreas clinic for further evaluation for EUS and consideration of cervical plexus block. * Care Plan - Christi Lopez LPN - 11/17/2020 4:16 PM EDT Continue with plan of care. * Progress Notes - Zo Prieto MD - 11/17/2020 12:32 PM EDT Subjective No acute events over night. Is looking forward to following up with GI pancreas clinic. Her abdominal pain is a little better right now. Review of Systems Denies chest pain Objective Physical Exam Constitutional: General: She is not in acute distress. Cardiovascular: Rate and Rhythm: Normal rate and regular rhythm. Pulmonary: Effort: No respiratory distress. Abdominal: General: There is no distension. Palpations: Abdomen is soft. Neurological: General: No focal deficit present. Last Recorded Vitals Blood pressure 119/89, pulse 99, temperature 37.1 ??C (98.7 ??F), temperature source Oral, resp. rate 16, weight 102 kg (225 lb 12 oz), SpO2 97 %. Assessment/Plan Principal Problem: Acute pancreatitis without infection or necrosis Active Problems: Abdominal pain, epigastric 34 yo F hx of chronic pancreatitis, cholelithiasis s/p CCY c/b de estella choledocholithiais s/p ERCP 04/2020, obesity, bipolar, fibromyalgia, recent admission 10/22-11/06 for pancreatitis presents with abdominal pain since 11/07 admitted for acute on chronic pancreatitis. ?? Acute on chronic abdominal pain likely 2/2 chronic pancreatitis -Patient with epigastric pain and lipase of 190 on admission??(was wnl throughout recent admission) - MRCP with no signs of acute or chronic inflammation. No structural abnormalities PLAN: - GI following. EGD on 11/17 with no duodenal ulcer. Will arrange for follow up in pancreas clinic - Switching to oxycodone 10mg q4h PRN. Continue scheduled tylenol, topical diclofenac gel and lidocaine patches, methocarbamol TID for muscle cramps - IV Zofran 8mg Q8H prn, PO phenergan for nausea - Lyrica 300mg BID - Patient to establish care with pain management clinic outpatient as previously discussed on discharge 11/06 ?? Non-bleeding duodenal ulcer, healing gastric ulcer - Noted on EGD 10/22 during last admission and treated with PPI, sucralfate, opioids, zofran, phenergan - No evidence of GIB currently. Repeat EGD 11/16 with no duodenal ulcer noted PLAN: - Pantoprazole 40mg BID (to end 12/16) - Sucralfate; pain/nausea management as above - Avoid NSAIDs - GI consult ?? Fibromyalgia-home lyrica increased to 300 BID Anxiety- home??latuda, venlafaxine Tinea corporis-clotrimazole topical BID; PCP follow up Right breast mass-24mm mass, stablex4 years, PCP follow up Obesity-BMI 37 ?? F: PO E: Replete as needed N: Full liquid DVT PPx: pLov ?? FULL CODE ?? Zo Prieto MD Cosigned by Tricia Clarke MD at 11/17/2020 1:46 PM EDT Associated attestation - Tricia Clarke MD - 11/17/2020 1:46 PM EDT I saw and evaluated the patient with the resident/fellow. I discussed the case with the resident/fellow and agree with the findings and plan as documented. EGD without duodenal ulcer and was normal. Problem List: - Possible acute on chronic pancreatitis with MRCP negative - s/p cholecystectomy after cholecystitis with then development of choledocholithiasis s/p ERCP 04/2020, possible sphincter of Oddi dysfunction on outside ERCP 05/13 without change in symptoms with spincterotomy - Nonbleeding duodenal ulcer resolved on EGD - Tobacco use disorder - Tinea corpora - Chronic conditions: Obesity, Bipolar disorder by report, Anxiety, Fibromyalgia, Hypertension, Right breast mass being followed, marijuana use Ms. Mcnally feels better this am. She did have one episode of severe upper abdominal pain overnight but was able to get some sleep. We discussed Ms. Mcnally's three children this am, her twins, Yury Reardon (age 7) and her oldest son, Demetri (age 9), who has high functioning autism. She describes her gauri and parenting stress that go along with raising three children. She is, of course, anxious toget home to be with them. Today, we discussed a gradual wean of her oxycodone to go from her current dosing of 70mg daily to 60mg daily with a change to 10mg q4 PRN. Continue diclofenac topical, scheduled Tylenol, lidocaine patch. Continue SNRI and increased lyrica dose. Plan follow-up in pancreas clinic for further evaluation for EUS and consideration of cervical plexus block. * Nursing Note - Aarti Trujillo RN - 11/16/2020 5:19 PM EDT 11/16/20 1718 Event/Notification Description Event Location [facility] and Room Number 406 Reason for Rapid Response Team notification LABS Is the patient a DNR? No Type of Event IV/Labs Method of Notification Nurse (specify) (Tiarra Lopez, CHANDNI) Rapid Response Outcome Survival Yes Rapid Response Termination Due to Patient remained on floor Additional Observation/Interventions See note MAIL CARRIER AND CLERK notified of patient with difficult peripheral venous access in need of blood specimens for labwork. Primary RNTiarra has previously attempted x 2, without success. MAIL CARRIER AND CLERK attempt x 2 to obtain blood specimens for labwork, without success. Primary RN aware. * Progress Notes - Kimi Sheehan - 11/16/2020 4:23 PM EDT Patient: Lila Mcnally Anesthesia Type: general Vitals Value Taken Time BP 159/122 11/16/20 1445 Temp 36.6 ??C (97.8 ??F) 11/16/20 1405 Pulse 84 11/16/20 1446 Resp 11 11/16/20 1446 SpO2 97 % 11/16/20 1446 Vitals shown include unvalidated device data. Anesthesia Post Evaluation Patient location during evaluation: PACU Level of consciousness: baseline Pain management: adequate (pain score 0-3) Airway patency: natural airway Cardiovascular status: acceptable Respiratory status: acceptable Hydration status: acceptable @ANCOMPLICATIONS@ * Progress Notes - Kimi Sheehan - 11/16/2020 4:23 PM EDT Patient: Lila Mcnally Anesthesia Type: general Vitals Value Taken Time BP 159/122 11/16/20 1445 Temp 36.6 ??C (97.8 ??F) 11/16/20 1405 Pulse 84 11/16/20 1446 Resp 11 11/16/20 1446 SpO2 97 % 11/16/20 1446 Vitals shown include unvalidated device data. Anesthesia Post Evaluation Patient location during evaluation: PACU Level of consciousness: baseline Pain management: adequate (pain score 0-3) Airway patency: natural airway Cardiovascular status: acceptable Respiratory status: acceptable Hydration status: acceptable @ANCOMPLICATIONS@ * H&P - Vineet Handy MD - 11/16/2020 1:25 PM EDT Images from the original note were not included. History Of Present Illness Lila Mcnally is a 34 y.o. female with PMH of chronic pancreatitis, cholelithiasis s/p CCY c/b de estella choledocholithiasis s/p ERCP 04/2020, obesity, bipolar disorder who presents with 3 days of abdominal pain. GI was consulted for evaluation of abdominal pain. Past Medical History She has a past medical history of Anxiety, Depression, Fibromyalgia, GERD (gastroesophageal reflux disease), Hypertension, Nicotine dependence, Obesity, and Pancreatitis. Surgical History She has a past surgical history that includes Cholecystectomy and ERCP. Family History Family History Problem Relation Name Age of Onset ??? Hypertension Mother ??? No Known Problems Father Social History She reports that she has been smoking cigarettes. She has been smoking about 0.50 packs per day. She has never used smokeless tobacco. She reports current alcohol use. She reports current drug use. Frequency: 4.00 times per week. Drug: Marijuana. Occupational History none Occupational History ??? Not [...] of the following new or worsening symptoms? Diarrhea Have you traveled internationally or domestically in the last month? No Travel History Travel since 10/16/20 No documented travel since 10/16/20 VACCINE/DOSE DATE Flu 11/21/2019 Tetanus Pneumovax Shingles Allergies Morphine and related and Tramadol Medications Current Facility-Administered Medications Medication Dose Route Frequency Provider Last Rate Last Admin ??? acetaminophen (Tylenol) tablet 650 mg 650 mg Oral q6h Zo Prieto MD 650 mg at 11/16/20 1132 ??? clotrimazole (Lotrimin) 1 % cream 1 application 1 application Topical BID Gage Marmolejo MD1 application at 11/16/20 0835 ??? diclofenac (Voltaren) 1 % topical gel 1 application 1 application Transdermal 4x daily Maribeth Prieto MD 1 application at 11/16/20 0836 ??? enoxaparin (Lovenox) syringe 30 mg 30 mg Subcutaneous BID Zo Prieto MD 30 mg at 11/16/20 0826 ??? hydrOXYzine pamoate (Vistaril) capsule 25 mg 25 mg Oral q6h PRN Gage Marmolejo MD 25 mg at 11/15/204 ??? lactated Ringer's infusion 100 mL/hr Intravenous Continuous Quan Sofia, ??? lidocaine (Lidoderm) 5 % patch 2 patch 2 patch Apply externally q24h Zo Prieto MD 2 patch at 11/14/20 0933 ??? lurasidone (Latuda) tablet 40 mg 40 mg Oral Daily with breakfast Gage Marmolejo MD 40 mg at11/15/202002 ??? methocarbamol (Robaxin) tablet 500 mg 500 mg Oral TID Zo Prieto MD 500 mg at 11/16/20 1229 ??? ondansetron (Zofran) injection 4 mg 4 mg Intravenous q6h PRN Zo Prieto MD 4 mg at 11/16/20 0827 ??? oxyCODONE (Roxicodone) immediate release tablet 10 mg 10 mg Oral q6h INO Gage Marmolejo MD 10 mg at 11/16/20 0825 ??? oxyCODONE (Roxicodone) immediate release tablet 5 mg 5 mg Oral q4h PRN Zo Prieto MD 5 mg at 11/16/20 0857 ??? pancrelipase (Sgv-Bqsg-Nmpb) (Creon) 6000-31935 units per capsule 1 capsule 1 capsule Oral TID with meals Gage Marmolejo MD 1 capsule at 11/16/20 1229 ??? pantoprazole (ProtoNix) injection 40 mg 40 mg Intravenous BID Zo Prieto MD 40 mg at 11/16/20 0827 ??? pregabalin (Lyrica) capsule 300 mg 300 mg Oral BID Zo Prieto MD 300 mg at 11/16/20 0826 ??? promethazine (Phenergan) tablet 12.5 mg 12.5 mg Oral q4h PRN Zo Prieto MD 12.5 mg at11/15/20 1228 ??? sodium chloride 0.9 % flush 10 mL 10 mL Intravenous q8h PRN Zo Prieto MD ??? sucralfate (Carafate) 1 GM/10ML suspension 1 g 1 g Oral q6h INO Gage Marmolejo MD 1 g at 11/16/20 1229 ??? ursodiol (Actigall) capsule 600 mg 600 mg Oral BID Tricia Clarke MD 600 mg at 11/16/20 1132 ??? venlafaxine XR (Effoxor-XR) 24 hr capsule 150 mg 150 mg Oral Daily with breakfast Gage Marmolejo MD 150 mg at 11/16/20 0826 Review of Systems All 14 point ROS are reviewed and are negative except for those mentioned above. Physical Exam Last Recorded Vitals Blood pressure (!) 140/96, pulse 82, temperature 36.3 ??C (97.3 ??F), temperature source Temporal, resp. rate 16, weight 102 kg (225 lb 12 oz), SpO2 100 %. General: Age appropriate female lying in bed not in distress HEENT: AT/NC, LUBA, EOMI. No scleral icterus present. Neck: Supple, No JVD. Oral Mucosa: Moist CVS: S1S2+ RRR No murmurs heard Lungs: CTA B/L. No Crackles appreciated Abdomen: Soft, mild TTP in epigastrium, BS+, No palpable organomegaly appreciated Extremities: No edema. No Asterixis. Neuro: AA oriented x 3. No gross neuro deficits appreciated. Skin: No Jaundice Relevant Results Labs in last 18 hours [...] ?? D.Bili ?? Assessment/Plan Principal Problem: Acute pancreatitis without infection or necrosis Active Problems: Abdominal pain, epigastric Lila Mcnally is a 34 y.o. female with PMH of chronic pancreatitis, cholelithiasis s/p CCY c/b de estella choledocholithiasis s/p ERCP 04/2020, obesity, bipolar disorder who presents with 3 days of abdominal pain. GI was consulted for evaluation of abdominal pain. We will proceed with EGD today. D/w attending Dr. Vargas Cosigned by Raiza Vargas MD at 11/16/2020 5:57 PM EDT Associated attestation - Raiza Vargas MD - 11/16/2020 5:57 PM EDT I saw and evaluated the patient with the resident/fellow. I discussed the case with the resident/fellow and agree with the findings and plan as documented. * Progress Notes - Tricia Clarke MD - 11/16/2020 1:13 PM EDT Subjective Ms. Mcnally reports that her pain continues to be severe intermittently, but reasonable currently. When the pain is severe, she reports it feels that someone is stabbing her in her abdomen and like she is 'being murdered.' She voices that IV Dilaudid has been the only thing that has helped since it has decreased the pain enough to let her sleep. She has associated vomiting- 3x reported 11/15- that was consistent with what she had recently eaten or had to drink. She has periods where shecan drink with out emesis. Review of Systems Gen: no fevers, chills CV: no chest pain, palpitations Objective Last Recorded Vitals Blood pressure (!) 137/91, pulse 93, temperature 36.5 ??C (97.7 ??F), resp. rate 16, weight 102 kg (225 lb 12 oz), SpO2 99 %. Physical Exam General: Comfortable, lying in bed Eyes: sclera anicteric and conjunctiva not injected, bilaterally ENT: Moist mucus membranes CV: No lower extremity edema. Resp: Normal work of breathing. Abdominal: Normoactive bowel sounds. Tenderness to palpation in left lower quadrant but most in theepigastrium and left upper quadrants. No rebound or guarding. Psych: More upbeat mood initially, but tearful and upset with us when discussing IV Dilaudid Skin: no rashes Assessment/Plan Ms. Mcnally is a 34-year-old woman with previous diagnosis of chronic pancreatitis, cholelithiasis s/p cholecystectomy, and then de-estella choledocholithiasis s/p ERCP 03/2020 admitted with acute on chronic recurrent epigastric pain, initially meeting criteria for acute pancreatitis withcontinued pain that has been difficult to control off IV opioids. 1. Acute on chronic abdominal pain, initially with suspected acute on chronic pancreatitis based onlipase and exam; MRCP normal here. While tolerating liquids, no indication for IV opioids; have tried discussing this in detail with patient and her mother, but they are still unhappy with this plan.Patient did request a new physician team. I reached out to all of the other hospitalists from [facility] to assess if they could take over their care. None of them had capacity to do that as the hospital is full. I explained this to the patient and her mother. - Work to get ERCP records from [facility]; GI discussing next steps including possible EUS with advanced endoscopy - Oxycodone 10mg q6 scheduled, 5mg q4 PRN; she is declining further diclofenac gel and lidocaine patches, as she did not feel they helped; Goal to gradually wean PO opiods in coming days - IV Zofran for now at patient's request, PO phenergan as back-up - She reports having follow-up at a pain clinic 2. Nonbleeding duodenal ulcer that may be contributing to current pain - EGD today, IV PPI for now, sucrulfate; avoid NSAIDS 3. Chronic Conditions - Fibromyalgia continue Lyrica increased to 300mg BID, home methocarbamol - Anxiety- continue Latuda and venlafaxine - Tinea corporis- clotrimazole topical; dermatology follow-up if no improvement - Right breast mass, stable 2 4yrs per patient- PCP follow-up DVT Prophylaxis: Lovenox Code Status: Full * Consults - Barb Jansen RD - 11/16/2020 9:24 AM EDT Adult Nutrition Evaluation Note Lila Mcnally 34 y.o. female CSN: [id number] Room/Bed 406/406A Nutrition evaluation type: screen Reason for evaluation: LOS assessment Hospital course: 34 y/o F admitted 11/10 with 3 days of abdominal pain. GI was consulted for evaluation of abdominal pain. Plan for EGD today to assess duodenal ulcer. Past medical/ surgical history: Past Medical History: Diagnosis Date ??? Anxiety ??? Depression ??? Fibromyalgia ??? GERD (gastroesophageal reflux disease) ??? Hypertension ??? Nicotine dependence ??? Obesity ??? Pancreatitis Past Surgical History: Procedure Laterality Date ??? CHOLECYSTECTOMY ??? ERCP Additional comments: 11/16: Pt away from room at time of visit. Vitals and Basic Assessment: BP: (!) 137/91 Temp: 36.5 ??C (97.7 ??F) Oxygen Therapy: None (Room air) Jo Coma Scale Score: 15 Scott Scale Score: 21 GI Symptoms: Nausea Allergies: no known food allergies Medications: acetaminophen, 650 mg, Oral, q6h clotrimazole, 1 application, Topical, BID diclofenac, 1 application, Transdermal, 4x daily enoxaparin, 30 mg, Subcutaneous, BID lidocaine, 2 patch, Apply externally, q24h lurasidone, 40 mg, Oral, Daily with breakfast methocarbamol, 500 mg, Oral, TID oxyCODONE, 10 mg, Oral, q6h INO pancrelipase (Jax-Mhvj-Gbpr), 1 capsule, Oral, TID with meals pantoprazole, 40 mg, Intravenous, BID pregabalin, 300 mg, Oral, BID sucralfate, 1 g, Oral, q6h INO ursodiol, 600 mg, Oral, BID venlafaxine XR, 150 mg, Oral, Daily with breakfast hydrOXYzine pamoate, ondansetron, oxyCODONE, promethazine, [COMPLETED] Insert peripheral IV AND[COMPLETED] Saline lock IV AND sodium chloride Labs: Lab Results Component Value Date WBC 7.11 11/14/2020 HGB 11.8 11/14/2020 HCT 36.0 11/14/2020 MCV 89 11/14/2020 PLT 229 11/14/2020 Lab Results Component Value Date GLUCOSE 98 11/14/2020 CALCIUM 9.2 11/14/2020 NA 136 11/14/2020 K 4.2 11/14/2020 CO2 27 11/14/2020 CL 100 11/14/2020 BUN 7 11/14/2020 CREATININE 0.81 11/14/2020 Lab Results Component Value Date ALBUMIN 4.0 11/14/2020 Anthropometrics: Admit Height (CM) 165.1 Admit Weight (KG) 102 Current Weight (KG) 102 BMI 37.57 Weight Evaluation Obese-class 2 IBW (KG) 56.8 Percent IBW 180% Adjusted Weight (KG) 68.1 Weight History Wt Readings from Last 4 Encounters: 11/10/20 102 kg (225 lb 12 oz) 10/21/20 90.7 kg (200 lb) 10/18/20 90.7 kg (200 lb) 10/18/20 79.8 kg (176 lb) Additional Comments Estimated Needs: Provided Based On Weight Used Kcal/day 0044-5354 25-28 Adjusted Protein/day 75-88 1.1-1.3 Adjusted Fluid/day 1ml/kcal or per MD team Additional Comments Current Nutrition Intake: Current Diet Order NPO Avg PO Intakes per RN Flowsheets n/a Oral Nutrition Supplements n/a Diet EDU Provided Will monitor need throughout LOS Buddhist/ Cultural Needs Ethnic needs not identified at this time Additional Comments Nutrition Focused Physical Exam: unable to perform Physical exam performed on (date): pending Assessment of Malnutrition: unable to assess Nutrition Problem: Inadequate oral intake related to current clinical status as evidenced by NPO status. Status of Nutrition Diagnosis: New Nutrition Interventions and Recommendations: - Continue NPO as medically appropriate. - When appropriate for diet advancement, rec advancing as tolerated to low fat --Monitor PO intakes and need for oral nutrition supplement - Rec obtaining weight 1x/week. Nutrition Monitoring and Goals: - Will monitor PO intake, weight status, lab results, GI tolerance, and skin integrity. - Pt will have adequate source of nutrition by follow up - Pt will maintain weight this admission. Discharge Planning: RD to monitor for nutrition related discharge needs. Acuity Level: [address] * Progress Notes - Omer Valentin LCSW - 11/16/2020 9:19 AM EDT Pt is not medically ready at this time. Pt is pending an EGD. Sw will continue to follow and assistas needed. * Nursing Note - Abigail Montaño - 11/15/2020 8:10 PM EDT Patient is incredibly upset that the team will not approve for her to have dilaudid IVP for abdominal pain. She reports that GI promised her this medication earlier today and is tearful that it has not been ordered. Advised patient that per note, patient is being treated with scheduled oxycodone, PRN oxycodone for breakthrough pain, an increased dose of lyrica, a muscle relaxant, and topical medications but she states they are ineffective. Advised patient that the GI team did not indicate in note where dilaudid would be restarted for pain. Patients mother is also calling the unit and wanting explanations for patient not receiving dilaudid. Will continue to administer medications, as ordered, and notify team of dilaudid request. * Progress Notes - Niko Blevins - 11/15/2020 7:45 PM EDT RANDY faxed Air Hose Coupler Eliezer at [phone] a Hospital Letter Verification per Patients request. * Nursing Note - Aarti Trujillo RN - 11/15/2020 6:53 PM EDT 11/15/201852 Event/Notification Description Event Location [facility] and Room Number 406 Reason for Rapid Response Team notification PIV/LABS Is the patient a DNR? No Type of Event IV/Labs Method of Notification Nurse (specify) (Abigail Govea RN) Rapid Response Outcome Survival Yes Rapid Response Termination Due to Patient remained on floor Additional Observation/Interventions See note Discontinuing Deterioration Record Time 1852 MAIL CARRIER AND CLERK notified of patient with difficult peripheral venous access in need of blood specimens for labwork and a PIV Primary RN has previously attempted x 2, without success. MAIL CARRIER AND CLERK attempt x 2 to obtain IV access, with success. 22 G, right breast. IV flushes easily, positive blood return, no signs of swelling noted. IV saline locked, secured with tape and transparent dressing. Blood specimens given to primary RN. Primary RN aware. * Consults - Vineet Handy MD - 11/15/2020 3:18 PM EDT Consults Reason For Consult Abdominal pain, nausea Requesting Service: Hospital medicine History Of Present Illness Lila Mcnally is a 34 y.o. female with PMH of chronic pancreatitis, cholelithiasis s/p CCY c/b de estella choledocholithiasis s/p ERCP 04/2020, obesity, bipolar disorder who presents with 3 days of abdominal pain. GI was consulted for evaluation of abdominal pain. She was recently hospitalized 10/22-11/06 for nonbleeding duodenal ulcer, which was treated conservatively. She asked to leave hospitalizationearly without complete resolution of symptoms. Since patient ran out of pain meds at home, she has been having worsening, severe epigastric abdominal pain. She reports that the pain has radiated to her back and shoulder. She describes having a constant, dull ache with severe, intermittent bouts of a bdominal pain. The pain worsens immediately after eating; therefore, limiting her PO intake. She also admits to nausea, hot flashes, and constipation. Denies fever, chills, hematemesis, hematochezia,melena, vomiting, chest pain, shortness of breath, changes in bowel habits. At admission, lipase 190, AST/ALT 42/124, ALP 162, Tbili wnl, CMP wnl, CBC wnl. Patient expresses concern for sphincter of Oddi dysfunction as the cause of worsening abdominal pain and requests additional imaging/procedures Per patient history, had CCY in 2012 and did well until 3 years ago when patient experienced suddenepigastric/LUQ abdominal pain and was diagnosed with acute pancreatitis at OSH. She was treated conservatively at the time. Since then, she has had recurrent intermittent flares of upper abdominal pain similar to first episode. In april 2020, was admitted to [facility] for recurrent abdominal pain and underwent ERCP that resulted in sphincterotomy and stone extraction. Past Medical History -Chronic pancreatitis -cholelithasis s/p CCY 2012 c/b de estella choledocholithiasis s/p ERCP in April 2020 -Bipolar disorder -Anxiety -Fibromyalgia -Obesity Surgical History She has a past surgical history that includes Cholecystectomy and ERCP. Family History Family History Problem Relation Name Age of Onset ??? Hypertension Mother ??? No Known Problems Father Denies family history of CRC; mother has UC(?) Social History She reports that she has been smoking cigarettes. She has been smoking about 0.50 packs per day. She has never used smokeless tobacco. She reports current alcohol use. She reports current drug use. Frequency: 4.00 times per week. Drug: Marijuana. Reports she smokes 6 cigarettes a few times a week. Denies daily alcohol use, but reports she will drink a 6 pack of beer or 1 bottle of wine at a time a few times a week. Has used marijuana occasionally Allergies Morphine and related and Tramadol Medications Current Facility-Administered Medications Medication Dose Route Frequency Provider Last Rate Last Admin ??? acetaminophen (Tylenol) tablet 650 mg 650 mg Oral q6h Zo Prieto MD 650 mg at 11/15/20 1153 ??? clotrimazole (Lotrimin) 1 % cream 1 application 1 application Topical BID Gage Marmolejo MD1 application at 11/15/20 0900 ??? diclofenac (Voltaren) 1 % topical gel 1 application 1 application Transdermal 4x daily Maribeth Prieto MD 1 application at 11/15/20 0900 ??? enoxaparin (Lovenox) syringe 30 mg 30 mg Subcutaneous BID Zo Prieto MD 30 mg at 11/15/20 0841 ??? hydrOXYzine pamoate (Vistaril) capsule 25 mg 25 mg Oral q6h PRN Gage Marmolejo MD 25 mg at 11/15/20 0816 ??? lactated Ringer's bolus 1,000 mL 1,000 mL Intravenous Once Zo Prieto MD 333.3 mL/hr at 11/15/20 1245 1,000 mL at 11/15/20 1245 ??? lidocaine (Lidoderm) 5 % patch 2 patch 2 patch Apply externally q24h Zo Prieto MD 2 patch at 11/14/20 0933 ??? lurasidone (Latuda) tablet 40 mg 40 mg Oral Daily with breakfast Gage Marmolejo MD 40 mg at11/13/20 204 ??? methocarbamol (Robaxin) tablet 500 mg 500 mg Oral TID oZ Prieto MD ??? ondansetron (Zofran) injection 4 mg 4 mg Intravenous q6h PRN Zo Prieto MD ??? oxyCODONE (Roxicodone) immediate release tablet 10 mg 10 mg Oral q6h INO Gage Marmolejo MD 10 mg at 11/15/20 1436 ??? oxyCODONE (Roxicodone) immediate release tablet 5 mg 5 mg Oral q4h PRN Zo Prieto MD 5 mg at 11/15/20 1229 ??? pancrelipase (Pfv-Sjun-Kpyp) (Creon) [id number] units per capsule 1 capsule 1 capsule Oral TID with meals Gage Marmolejo MD 1 capsule at 11/15/20 1229 ??? pantoprazole (ProtoNix) EC tablet 40 mg 40 mg Oral BID AC Gage Marmolejo MD 40 mg at 11/15/20 0817 ??? pregabalin (Lyrica) capsule 300 mg 300 mg Oral BID Zo Pireto MD 300 mg at 11/15/20 0838 ??? promethazine (Phenergan) tablet 12.5 mg 12.5 mg Oral q4h PRN Zo Prieto MD 12.5 mg at11/15/20 1228 ??? sodium chloride 0.9 % flush 10 mL 10 mL Intravenous q8h PRN Zo Prieto MD ??? sucralfate (Carafate) 1 GM/10ML suspension 1 g 1 g Oral q6h INO Gage Marmolejo MD 1 g at 11/15/20 1229 ??? venlafaxine XR (Effoxor-XR) 24 hr capsule 150 mg 150 mg Oral Daily with breakfast Gage Marmolejo MD 150 mg at 11/15/20 0815 Review of Systems 14 point ROS performed and negative except for HPI. Physical Exam GENERAL: in no acute distress, appears as stated age, afebrile, lying comfortably in bed, obese HEENT: AT/NC, LUBA, EOMI. No scleral icterus present. Neck: Supple, No JVD. Oral Mucosa: Moist Lungs: CTA b/l. No wheezing, crackles, or stridor. CVS: normal S1/S2 GI:??soft, obese, tender to light palpation in mid-epigastric area, non distended, BS+, no palpableorganomegaly appreciated Extremities: No edema. No Asterixis. Neuro: AA oriented x 3. No gross neuro deficits appreciated. Skin: No Jaundice; warm and dry Last Recorded Vitals Blood pressure 127/90, pulse 91, temperature 36.7 ??C (98 ??F), resp. rate 16, weight 102 kg (225 lb 12 oz), SpO2 98 %. Relevant Results Labs in last 18 hours CBC WBC 7.11 Hb 11.8 Plt 229 Hct 36.0 ANC ?? INR ??, PTT ??, Anti-Xa ?? BMP Na 136 Cl 100 BUN 7 Glu 98 K 4.2 Co2 27 Cr 0.81 Ca 9.2 iCa ?? Mg ??, Phos ?? Lactate ?? LFT AST 125 (H) AlkPhos 156 (H) T Prot 6.8 ALK 169 (H) Bili 0.2 Alb ?? D.Bili ?? MRCP 11/12: no acute findings, no biliary ductal dilatation, no choledocholithiasis, no findings of acute pancreatitis Assessment/Plan Principal Problem: Acute pancreatitis without infection or necrosis Lila Mcnally is a 34 y.o. female with PMH of chronic pancreatitis, cholelithiasis s/p CCY c/b de estella choledocholithiasis s/p ERCP 04/2020, obesity, bipolar disorder who presents with 3 days of abdominal pain. GI was consulted for evaluation of abdominal pain. # Abdominal pain # Abnormal LFTs # Recent Duodenal ulcer - MRCP is normal. - Recommend obtaining EBV, CMV, HSV PCR, AMA (if not done in last admission) - Recommend evaluating for tick borne illness [place] - recommend obtain PETH (in view of her alcohol history) - Will discuss with our advanced attending tomorrow for possible EUS to rule out biliary pathology - recommend ursodiol 500 mg BID for management of possible microlithiasis - recommend IV PPI BID - Will plan for EGD tomorrow to assess her duodenal ulcer. - Please obtain records from office with regards to her prior imaging and ERCP. Seen and d/w attending Dr. Vargas Cosigned by Raiza Vargas MD at 11/16/2020 2:33 PM EDT Associated attestation - Raiza Vargas MD - 11/16/2020 2:33 PM EDT I saw and evaluated the patient with the resident/fellow. I discussed the case with the resident/fellow and agree with the findings and plan as documented. * Progress Notes - Zo Prieto MD - 11/15/2020 1:35 PM EDT Subjective She is upset this morning because she feels like we are not listening to her and that her pain is not under control. She has been unable to tolerate much by mouth aside from naa estuardo and ice chips.Pain is present under her rib cage and she is unable to get comfortable; similar to pain on admission; she reports some relief from oxycodone but not enough and states that Dilaudid IV is the only thing that helps. She is requesting to be seen by a different doctor because she feels like she is notbeing taken care of. Review of Systems Abdominal pain, nausea, vomiting present Objective Physical Exam Cardiovascular: Rate and Rhythm: Normal rate and regular rhythm. Pulmonary: Effort: No respiratory distress. Abdominal: General: There is no distension. Palpations: Abdomen is soft. Comments: Diffusely tender to light palpation, especially in mid-epigastric region Skin: General: Skin is warm and dry. Neurological: General: No focal deficit present. Last Recorded Vitals Blood pressure 127/90, pulse 91, temperature 36.7 ??C (98 ??F), resp. rate 16, weight 102 kg (225 lb 12 oz), SpO2 98 %. Assessment/Plan Principal Problem: Acute pancreatitis without infection or necrosis 34 yo F hx of chronic pancreatitis, cholelithiasis s/p CCY c/b de estella choledocholithiais s/p ERCP 04/2020, obesity, bipolar, fibromyalgia, recent admission 10/22-11/06 for pancreatitis presents with abdominal pain since 11/07 admitted for acute on chronic pancreatitis. Acute on chronic abdominal pain likely 2/2 chronic pancreatitis -Patient with epigastric pain and lipase of 190 on admission (was wnl throughout recent admission) - MRCP with no signs of acute or chronic inflammation. No structural abnormalities PLAN: - GI consulted. Has outpatient f/u with GI after being seen by GI during recent hospitalization. Will try to arrange for closer f/u. - Full liquid diet, advance as tolerated. Administering IV LR bolus today due to reported low PO intake - No longer administering IV pain medications as they are not a safe and effective method of pain control for her condition. Continue oxycodone 10mg Q6H and oxycodone 5mg q4h PRN. Continue scheduled tylenol, topical diclofenac gel and lidocaine patches. Add methocarbamol TID for muscle cramps today - IV Zofran 8mg Q8H prn, PO phenergan for nausea - Lyrica 300mg BID - Patient to establish care with pain management clinic outpatient as previously discussed on discharge 11/06 Non-bleeding duodenal ulcer, healing gastric ulcer - Noted on EGD 10/22 during last admission and treated with PPI, sucralfate, opioids, zofran, phenergan - No evidence of GIB currently PLAN: - Pantoprazole 40mg BID (to end 12/16) - Sucralfate; pain/nausea management as above - Avoid NSAIDs - GI consult Fibromyalgia-home lyrica increased to 300 BID Anxiety- home latuda, venlafaxine Tinea corporis-clotrimazole topical BID; PCP follow up Right breast mass-24mm mass, stablex4 years, PCP follow up Obesity-BMI 37 F: PO E: Replete as needed N: Full liquid DVT PPx: pLov FULL CODE Zo Prieto MD Cosigned by Tricia Clarke MD at 11/15/2020 4:40 PM EDT Associated attestation - Tricia Clarke MD - 11/15/2020 4:40 PM EDT I saw and evaluated the patient with the resident/fellow. I discussed the case with the resident/fellow and agree with the findings and plan as documented. Labs personally reviewed with Cr 0.56, AST/ALT 42->125/124->169, alk phos 156, total bilirubin nml; lipase 23. Problem List: - Possible acute on chronic pancreatitis with tobacco use and alcohol use contributing, with MRCP negative - s/p cholecystectomy after cholecystitis with then development of choledocholithiasis s/p ERCP 04/2020, possible sphincter of Oddi dysfunction on outside ERCP 05/13 without change in symptoms with spincterotomy - Nonbleeding duodenal ulcer - Tobacco use disorder - Tinea corpora - Chronic conditions: Obesity, Bipolar disorder by report, Anxiety, Fibromyalgia, Hypertension, Right breast mass being followed, marijuana use Ms. Mcnally feels that we are not addressing her pain adequately. We discussed that IV opioids are not indicated currently and our goal is to taper down the oral opioids very gradually. She is currently getting oxycodone 10mg q6 and 5mg q4 PRN, scheduled at her request. To further aid in pain control, continue diclofenac topical, scheduled Tylenol, lidocaine patch, but she does not feel that the topical treatments are helping. We discussed this morning that they may help with the very superficialpain/tenderness that she is having that could be fibromylagia type pain but agreed they may be lesseffective for the deeper pain. Continue SNRI and increased lyrica dose. Ms. Mcnally requested to see GI to evaluate for a repeat ERCP to assess for spincter of oddi dysfunction. Yesterday, we discussed that this is a difficult diagnosis to make and treat. Did ask GI to seewhen they are able. * Progress Notes - Zo Prieto MD - 11/14/2020 11:49 AM EDT Subjective She was in significant pain over night in her epigastrium. Continues to be in more pain this morning. Dilaudid provides temporary relief. She would like to have an ERCP done to evaluate for sphincterof Oddi dysfunction as she has been told this by her PCP. She has knee pain due to osteoarthritis which resolved with topical diclofenac yesterday. Review of Systems Denies chest pain, shortness of breath Objective Physical Exam Constitutional: General: She is not in acute distress. Cardiovascular: Rate and Rhythm: Normal rate and regular rhythm. Heart sounds: No murmur heard. Pulmonary: Effort: No respiratory distress. Breath sounds: No wheezing. Abdominal: General: There is no distension. Palpations: Abdomen is soft. Tenderness: There is abdominal tenderness. Musculoskeletal: Right lower leg: No edema. Left lower leg: No edema. Neurological: General: No focal deficit present. Last Recorded Vitals Blood pressure 144/88, pulse 99, temperature 36.4 ??C (97.5 ??F), resp. rate 18, weight 102 kg (225lb 12 oz), SpO2 98 %. Assessment/Plan Principal Problem: Acute pancreatitis without infection or necrosis 34 yo F hx of chronic pancreatitis, cholelithiasis s/p CCY c/b de estella choledocholithiais s/p ERCP 04/2020, obesity, bipolar, fibromyalgia, recent admission 10/22-11/06 for pancreatitis presents with abdominal pain since 11/07 admitted for acute on chronic pancreatitis. Acute on chronic abdominal pain likely 2/2 chronic pancreatitis -Patient with epigastric pain and lipase of 190 on admission (was wnl throughout recent admission) - MRCP with no signs of acute or chronic inflammation. No structural abnormalities PLAN: - Full liquid diet, advance as tolerated - Stopping IV dilaudid today. Continue oxycodone 10mg Q6H and add oxycodone 5mg q4h PRN. Continue scheduled tylenol, topical diclofenac gel and lidocaine patches - Zofran 8mg Q8H prn, phenergan for nausea - Lyrica to 300mg BID - Patient to establish care with pain management clinic outpatient as previously discussed on discharge 11/06 - Has outpatient f/u with GI after being seen by GI during recent hospitalization. Will try to arrange for closer f/u. Will discuss with them about ERCP Non-bleeding duodenal ulcer, healing gastric ulcer - Noted on EGD 10/22 during last admission and treated with PPI, sucralfate, opioids, zofran, phenergan - No evidence of GIB currently PLAN: - Pantoprazole 40mg BID (to end 12/16) - Sucralfate; pain/nausea management as above - Avoid NSAIDs - Has outpatient f/u with GI Fibromyalgia-home lyrica increased to 300 BID Anxiety- home latuda, venlafaxine Tinea corporis-clotrimazole topical BID; PCP follow up Right breast mass-24mm mass, stablex4 years, PCP follow up Obesity-BMI 37 F: PO E: Replete as needed N: Full liquid DVT PPx: pLov FULL CODE Cosigned by Tricia Clarke MD at 11/14/2020 12:39 PM EDT Associated attestation - Tricia Clarke MD - 11/14/2020 12:39 PM EDT I saw and evaluated the patient with the resident/fellow. I discussed the case with the resident/fellow and agree with the findings and plan as documented. Problem List: - Possible acute on chronic pancreatitis with tobacco use and alcohol use contributing, with MRCP negative - s/p cholecystectomy after cholecystitis with then development choledocholithiasis s/p ERCP 04/2020, possible sphincter of Oddi dysfunction on outside ERCP 05/13 without change in symptoms with spincterotomy - Nonbleeding duodenal ulcer - Tobacco use disorder - Tinea corpora - Chronic conditions: Obesity, Bipolar disorder by report, Anxiety, Fibromyalgia, Hypertension, Right breast mass being followed, marijuana use Ms. Mcnally voices a concern for spincter of oddi dysfunction as her diagnosis. This is unfortunatelya challenging diagnosis to confirm; as she requested we will ask for assistance from GI about if another test would be helpful after the normal MRCP. She would like an ERCP. She reports having a previous ERCP [facility] and we are requesting records. Ms. Mcnally continues to have intermittent episodes of severe pain. We discussed today that opioids like Dilaudid are unfortunately not the best treatment for this acute on chronic pain (which we discussed is real and severe) given their short duration of help and increased side effects at higher doses. We discussed the need to stop IV opioids and transition to PO with a gradual down-titration. Ms. Mcnally voiced her displeasure in discontinuing this. To aid in pain control, 11/13 we started diclofenac topical, scheduled Tylenol, lidocaine patch, and we increased her Lyrica in addition to continuing her SNRI. Already on SNRI and increase lyrica dose. Did not tolerate TCA because of urinary hesitancy. She does have follow-up at a pain clinic on 12/03. We also discussed using strategies to decrease her anxiety that increases with pain and I worry also amplifies her pain. * Nursing Note - Justus Medel - 11/13/2020 5:44 PM EDT Patient reported increased abdominal tenderness, muscle spasms, random sharp pains, sweatiness, difficulty swallowing and a general sense of not feeling right. Assessed full vitals, results typical for patient. Assessed BG level, 104. Administered vistaril. Continue to monitor. Cosigned by Francis Govea RN at 07/10/2021 10:41 AM EDT Associated attestation - Francis Govea RN - 07/10/2021 10:41 AM EDT attest * Progress Notes - Omer Valentin LCSW - 11/13/2020 11:35 AM EDT Pt is not medically ready at this time. Pt has no home, DME, HH, HI needs at this time. PCP is Papito Escobar. Pt has transportation when ready. Sw will continue to follow and assist as needed. * Progress Notes - Zo Prieto MD - 11/13/2020 9:55 AM EDT Subjective No acute events over night. She did not tolerate full liquid diet yesterday and vomited. Says IV zofran helps more. She required IV dilaudid yesterday. Is in significant pain this AM, to the point she says the pain is causing her to shake. The pain is in her epigastric and all across her upper abdomen without radiation. She just received IV dilaudid and is reporting it did not provide relief. Review of Systems Left sided abdominal pain present. Vomiting yesterday. Denies chest pain Objective Physical Exam Constitutional: General: She is not in acute distress. Cardiovascular: Rate and Rhythm: Normal rate and regular rhythm. Heart sounds: No murmur heard. Pulmonary: Effort: No respiratory distress. Breath sounds: No wheezing. Abdominal: General: There is no distension. Palpations: Abdomen is soft. Tenderness: There is abdominal tenderness. Musculoskeletal: Right lower leg: No edema. Left lower leg: No edema. Last Recorded Vitals Blood pressure 118/80, pulse 82, temperature 36.8 ??C (98.2 ??F), resp. rate 18, weight 102 kg (225lb 12 oz), SpO2 96 %. Assessment/Plan Principal Problem: Acute pancreatitis without infection or necrosis 34 yo F hx of chronic pancreatitis, cholelithiasis s/p CCY c/b de estella choledocholithiais s/p ERCP 04/2020, obesity, bipolar, fibromyalgia, recent admission 10/22-11/06 for pancreatitis presents with abdominal pain since 11/07 admitted for acute on chronic pancreatitis. Acute on chronic abdominal pain likely 2/2 chronic pancreatitis -Patient with epigastric pain and lipase of 190 on admission (was wnl throughout recent admission) - MRCP with no signs of acute or chronic inflammation. No structural abnormalities PLAN: - Advance diet as tolerated. Currently on CLD with continued vomiting - Continue oxycodone 10mg Q6H scheduled and dilaudid 1mg Q6H PRN with intent to wean off IV dilaudid. Switch to scheduled tylenol today. Add topical diclofenac gel and lidocaine patches - Zofran 8mg Q8H prn, phenergan for nausea - Increase Lyrica to 300mg BID - Patient to establish care with pain management clinic outpatient as previously discussed on discharge 11/06 - Has outpatient f/u with GI after being seen by GI during recent hospitalization. Will try to arrange for closer f/u Non-bleeding duodenal ulcer, healing gastric ulcer - Noted on EGD 10/22 during last admission and treated with PPI, sucralfate, opioids, zofran, phenergan - No evidence of GIB currently PLAN: - Pantoprazole 40mg BID (to end 12/16) - Sucralfate; pain/nausea management as above - Avoid NSAIDs - Has outpatient f/u with GI Fibromyalgia-home lyrica increased to 300 BID Anxiety- home latuda, venlafaxine Tinea corporis-clotrimazole topical BID; PCP follow up Right breast mass-24mm mass, stablex4 years, PCP follow up Obesity-BMI 37 F: PO E: Replete as needed N: Full liquid DVT PPx: pLov FULL CODE Cosigned by Tricia Clarke MD at 11/13/2020 1:50 PM EDT Associated attestation - Tricia Clarke MD - 11/13/2020 1:50 PM EDT I saw and evaluated the patient with the resident/fellow. I discussed the case with the resident/fellow and agree with the findings and plan as documented. Problem List: - Possible acute on chronic pancreatitis with tobacco use and alcohol use contributing, with MRCP negative - s/p cholecystectomy after cholecystitis with then development choledocholithiasis s/p ERCP 04/2020, possible sphincter of Oddi dysfunction on outside ERCP 05/13 without change in symptoms with spincterotomy - Nonbleeding duodenal ulcer - Tobacco use disorder - Tinea corpora - Chronic conditions: Obesity, Bipolar disorder by report, Anxiety, Fibromyalgia, Hypertension, Right breast mass being followed, marijuana use With MRCP being normal, this points away from chronic pancreatitis as a cause of Ms. Mcnally's pain. We discussed a goal of tapering down and off the opioids, starting with discontinuing the IV Dilaudid. To aid in pain control, started diclofenac topical, scheduled Tylenol, lidocaine patch. Already on SNRI and increase lyrica dose. Did not tolerate TCA last admission. Outpatient pain clinic and GI follow-up; with PCP follow-up until can see a pain physician; can evaluate for celiac plexus block. Counseling on alcohol and smoking cessation. She does not feel that PRN Vistaril is helping her anxiety. * Progress Notes - Zo Prieto MD - 11/12/2020 10:43 AM EDT Subjective No acute events over night. Her abdominal pain is better controlled with the scheduled oxy, but is still present. She still needed 1 dose IV dilaudid over night. She is drinking fluids well and has not been vomiting. She still feels nauseous occasionally. Review of Systems As noted in HPI Objective Physical Exam Constitutional: General: She is not in acute distress. Cardiovascular: Rate and Rhythm: Normal rate and regular rhythm. Heart sounds: No murmur heard. Pulmonary: Effort: No respiratory distress. Breath sounds: No wheezing. Abdominal: Palpations: Abdomen is soft. Tenderness: There is no guarding. Musculoskeletal: Right lower leg: No edema. Left lower leg: No edema. Skin: General: Skin is warm and dry. Neurological: General: No focal deficit present. Last Recorded Vitals Blood pressure 114/80, pulse 73, temperature 36.4 ??C (97.5 ??F), resp. rate 18, weight 102 kg (225lb 12 oz), SpO2 91 %. Assessment/Plan Principal Problem: Acute pancreatitis without infection or necrosis 34 yo F hx of chronic pancreatitis, cholelithiasis s/p CCY c/b de estella choledocholithiais s/p ERCP 04/2020, obesity, bipolar, fibromyalgia, recent admission 10/22-11/06 for pancreatitis presents with abdominal pain since 11/07 admitted for acute on chronic pancreatitis. Acute on chronic abdominal pain likely 2/2 chronic pancreatitis -Patient with epigastric pain and lipase of 190 on admission (was wnl throughout recent admission) PLAN: - Tolerating CLD well. Stop IVF today and advance to full liquid diet - Continue oxycodone 10mg Q6H scheduled and dilaudid 1mg Q6H PRN with intent to wean off IV dilaudid - Zofran 8mg Q8H prn, phenergan for nausea - Home lyrica 400mg BID - MRCP ordered - Patient to establish care with pain management clinic outpatient as previously discussed on discharge 11/06 - Has outpatient f/u with GI after being seen by GI during recent hospitalization. Will try to arrange for closer f/u Non-bleeding duodenal ulcer, healing gastric ulcer - Noted on EGD 10/22 during last admission and treated with PPI, sucralfate, opioids, zofran, phenergan - No evidence of GIB currently PLAN: - Pantoprazole 40mg BID (to end 12/16) - Sucralfate; pain/nausea management as above - Avoid NSAIDs - Has outpatient f/u with GI Fibromyalgia-home lyrica Anxiety- home latuda, venlafaxine Tinea corporis-clotrimazole topical BID; PCP follow up Right breast mass-24mm mass, stablex4 years, PCP follow up Obesity-BMI 37 F: PO E: Replete as needed N: Full liquid DVT PPx: pLov FULL CODE Cosigned by Tricia Clarke MD at 11/12/2020 12:54 PM EDT Associated attestation - Tricia Clarke MD - 11/12/2020 12:54 PM EDT I saw and evaluated the patient with the resident/fellow. I discussed the case with the resident/fellow and agree with the findings and plan as documented. Problem List: - Acute on chronic pancreatitis (possible sphincter of Oddi dysfunction on outside ERCP 05/13 without change in symptoms with spincterotomy), with tobacco use and alcohol use contributing - s/p cholecystectomy after cholecystitis with then development choledocholithiasis s/p ERCP 04/2020 - Nonbleeding duodenal ulcer - Tobacco use disorder - Tinea corpora - Chronic conditions: Obesity, Bipolar disorder by report, Anxiety, Fibromyalgia, Hypertension, Right breast mass being followed, marijuana use Continue pain control- IV Dilaudid initially and working to transitioning to PO pain medicine whiletolerating PO well with continued nausea. Advance low fat diet. Trial off IV fluids. MRCP pending. Outpatient pain clinic and GI. Counseling on alcohol and smoking cessation. Continue PRN Vistaril for anxiety component that may be amplifying pain. * Significant Event - Gage Marmolejo MD - 11/11/2020 2:53 PM EDT Was notified that patient and mother would like to speak with doctor by RN at 1430. Patient in tears saying that her pain is back and she is frustrated with not getting her pain meds on time. Howevershe acknowledges that her nurse has been doing a good job and understands that she is busy with other patients as well. Patient and mother are concerned that she is not getting enough baseline pain coverage based on the amount of medication that she required during her most recent hospitalization. Patient says her pain is very bad right now and requests another dose of dilaudid. Will order a 1x dose of dilaudid 0.5mg and increase her scheduled oxy to 10mg Q6H. Discussed with patient and mother that our goal is to get her off of the IV opioids and to ultimately get her down to as minimal a dose of opioids as possible, if any. They both voiced understanding and were agreeable to this plan. * Progress Notes - Gage Marmolejo MD - 11/11/2020 11:17 AM EDT SUBJECTIVE: NAEO. Patient attempted to eat jello this morning but experienced severe epigastric pain after she ate it. No vomiting. Was tearful on exam today because of pain. ROS: Constitutional: Denies fever, chills Cardiovascular: Denies chest pain, edema Respiratory: Denies SOA, cough GI: Denies vomiting, constipation, +abd pain/nausea MEDICATIONS: clotrimazole, 1 application, Topical, BID enoxaparin, 30 mg, Subcutaneous, BID lurasidone, 40 mg, Oral, Daily with breakfast pancrelipase ([id number]), 1 capsule, Oral, TID with meals pantoprazole, 40 mg, Oral, BID AC pregabalin, 200 mg, Oral, BID sucralfate, 1 g, Oral, q6h INO venlafaxine XR, 150 mg, Oral, Daily with breakfast lactated Ringer's, 100 mL/hr, Last Rate: 100 mL/hr (11/10/20 2248) PRN medications: acetaminophen, HYDROmorphone, ondansetron ODT, promethazine, [COMPLETED] Insert peripheral IV AND [COMPLETED] Saline lock IV AND sodium chloride OBJECTIVE: Vitals: 11/11/20 0629 BP: 120/58 Pulse: 68 Resp: 18 Temp: 36.4 ??C (97.6 ??F) SpO2: 97% Weight change: Intake/Output Summary (Last 24 hours) at 11/11/2020 1117 Last data filed at 11/11/2020 0600 Gross per 24 hour Intake 2354 ml Output -- Net 2354 ml PHYSICAL EXAM: GENERAL: tearful, cooperative, obese, laying in bed SKIN: warm and dry, circular lesion on right rodríguez, lesions EYES: conjunctiva clear, EOMI, no proptosis ENT: atraumatic external nose and ears, moist mucous membranes RESPIRATORY: respirations non-labored, equal chest rise, no cyanosis CARDIOVASCULAR: RRR, well perfused, no edema, no JVD GASTROINTESTINAL: non-distended, non-scaphoid, TTP epigastrically and LUQ MUSCULOSKELETAL: no joint swelling, full range of motion in all extremities NEUROLOGICAL: no focal deficits, interactive and normal tone PSYCHOLOGICAL: AAOx3, appropriate mood and behavior DATA: Labs in last 18 hours CBC WBC ?? Hb ?? Plt ?? Hct ?? ANC ?? INR ??, PTT ??, Anti-Xa ?? BMP Na 138 Cl 103 BUN 8 Glu 87 K 4.0 Co2 25 Cr 0.56 (L) Ca 9.1 iCa ?? Mg ??, Phos ?? Lactate ?? LFT AST 38 (H) AlkPhos 152 (H) T Prot 6.6 ALK 114 (H) Bili <0.2 (L) Alb ?? D.Bili ?? ASSESSMENT/PLAN: 34 yoF hx of chronic pancreatitis, cholelithiasis s/p CCY c/b de estella choledocholithiais s/p ERCP 04/2020, obesity, bipolar, fibromyalgia, recent admission 10/22-11/06 for pancreatitis presents with abdominal pain since 11/07 being admitted for acute on chronic pancreatitis ?? #Acute on chronic abdominal pain likely 2/2 chronic pancreatitis -Patient with epigastric pain and lipase of 190 on admission (was wnl throughout recent admission) PLAN: -cont 100 cc/hr LR until PO tolerable -start oxycodone 5mg Q6H scheduled and change dilaudid to 1mg Q6H prn from Q3H prn -zofran 8mg Q8H prn, phenergan for nausea -lyrica 400mg BID (home med) -will attempt to obtain RUQUS, MRCP inpatient -Patient to establish care with pain management clinic outpatient as previously discussed on discharge 11/06 -Has outpatient fu with GI after being seen by GI during recent hospitalization ?? #Non-bleeding duodenal ulcer, healing gastric ulcer -Noted on EGD 10/22 during last admission and treated with PPI, sucralfate, opioids, zofran, phenergan -No evidence of GIB currently PLAN: -Pantoprazole 40mg BID (to end 12/16) -sucralfate; pain/nausea management as above -avoid NSAIDs -Has outpatient fu with GI ?? #Fibromyalgia-home lyrica #Anxiety- home latuda, venlafaxine #Tinea corporis-clotrimazole topical BID; PCP follow up #Right breast mass-24mm mass, stablex4 years, PCP follow up #Obesity-BMI 37 ?? F: 1L LR w/100cc/hr E: prn N: CLD DVT PPx: pLov ?? FULL CODE Cosigned by Tricia Clarke MD at 11/11/2020 11:36 AM EDT Associated attestation - Tricia Clarke MD - 11/11/2020 11:36 AM EDT I saw and evaluated the patient with the resident/fellow. I discussed the case with the resident/fellow and agree with the findings and plan as documented. See H&P for attestation for 11/11/20. * H&P - Gage Marmolejo MD - 11/10/2020 5:52 PM EDTAssociated Order(s): Consult to Hospital Medicine Consult to Hospital Medicine Consult performed by: Gage Marmolejo MD Consult ordered by: Sammy Franco MD Complaint: abdominal pain HPI: 34 yoF hx of chronic pancreatitis, cholelithiasis s/p CCY c/b de estella choledocholithiais s/p ERCP 04/2020, obesity, bipolar, fibromyalgia, recent admission 10/22-11/06 for pancreatitis presents with abdominal pain since 11/09. States she was doing well at home until last night when she started severe experiencing epigastric and LUQ pain that radiated to her back. Says it is exactly like prior pancreatitis flares. Had associated nausea and vomiting and has not been able to keep anyting down PO. No blood in emesis or BMs. Denies fever, chills, soa, chest pain, dysuria, diarrhea. Patients GI hx notable for cholecystitis in 2012 with subsequent CCY. No abdominal pain after but 3years ago diagnosed with pancreatitis and has been having recurrent flares of pancreatitis that shereports occur up to 1x/week. First pancreatitis episode was associated with orlistat that she was taking for weight loss. In ED, patient with HDS with non-surgical abdomen, lipase of 190, CBC and CMP otherwise unremarkable. Was given 1mg of dilaudid x2 and 1L of NS and medicine consulted for admission. ROS: 14 pt ROS negative outside HPI PMH: has a past medical history of Anxiety, Depression, Fibromyalgia, GERD (gastroesophageal refluxdisease), Hypertension, Nicotine dependence, Obesity, and Pancreatitis. PSH: has a past surgical history that includes Cholecystectomy and ERCP. Meds: No current facility-administered medications on file prior to encounter. Current Outpatient Medications on File Prior to Encounter: clotrimazole, Apply topically 2 (two) times a day for 28 days. Latuda, TAKE 1 TABLET BY MOUTH IN THE EVENING WITH FOOD naloxone, Administer 1 spray (4 mg total) into affected nostril(s) if needed for opioid reversal orrespiratory depression. Call 911. Give 4 mg (1 spray) into one nostril. Repeat every 2-3 minutes asneeded, alternating nostrils, until medical assistance arrives. ondansetron, Take 1 tablet (8 mg total) by mouth every 8 (eight) hours if needed for nausea or vomiting. [] oxyCODONE, Take 1 capsule (5 mg total) by mouth every 6 (six) hours if needed for severe pain for up to 3 days. pancrelipase (Cci-Sqph-Javl), Take 1 capsule by mouth 3 (three) times a day with meals. pantoprazole, Take 1 tablet (40 mg total) by mouth 2 (two) times a day before meals. Do not crush, chew, or split. pregabalin, Take 200 mg by mouth 2 (two) times a day. sucralfate, Take 10 mL (1 g total) by mouth every 6 (six) hours. venlafaxine XR, TAKE 1 CAPSULE BY MOUTH ONCE DAILY IN THE MORNING [DISCONTINUED] HYDROcodone-acetaminophen, Take 1 tablet by mouth every 8 (eight) hours. [DISCONTINUED] methocarbamol, Take 500 mg by mouth 3 (three) times a day. [DISCONTINUED] omeprazole, Take 1 capsule (40 mg total) by mouth 1 (one) time each day before breakfast. Do not crush or chew. [DISCONTINUED] promethazine, Take 1 tablet (25 mg total) by mouth every 6 (six) hours if needed fornausea or vomiting for up to 7 days. Allergy: is allergic to morphine and related and tramadol. FH: family history includes Hypertension in her mother; No Known Problems in her father. SH: reports that she has been smoking cigarettes. She has been smoking about 0.50 packs per day. She has never used smokeless tobacco. She reports current alcohol use. She reports current drug use. Frequency: 4.00 times per week. Drug: Marijuana. Physical Visit Vitals BP (!) 148/112 Pulse 78 Temp 37 ??C (98.6 ??F) (Oral) Wt 102 kg (225 lb 12 oz) SpO2 97% BMI 37.57 kg/m?? GENERAL: no acute distress, cooperative, obese, laying in bed SKIN: warm and dry, circular lesion on rodríguez, lesions EYES: conjunctiva clear, EOMI, no proptosis ENT: atraumatic external nose and ears, moist mucous membranes RESPIRATORY: respirations non-labored, equal chest rise, no cyanosis CARDIOVASCULAR: RRR, well perfused, no edema, no JVD GASTROINTESTINAL: non-distended, non-scaphoid, TTP epigastrically and LUQ MUSCULOSKELETAL: no joint swelling, full range of motion in all extremities NEUROLOGICAL: no focal deficits, interactive and normal tone PSYCHOLOGICAL: AAOx3, appropriate mood and behavior Labs/Imaging: Labs in last 18 hours CBC WBC 8.29 Hb 11.5 Plt 218 Hct 34.5 ANC 5.24 INR ??, PTT ??, Anti-Xa ?? BMP Na 137 Cl 103 BUN 11 Glu 93 K 4.4 Co2 19 (L) Cr 0.61 Ca 9.2 iCa ?? Mg ??, Phos ?? Lactate ?? LFT AST 42 (H) AlkPhos 162 (H) T Prot 6.8 ALK 124 (H) Bili <0.2 (L) Alb ?? D.Bili ?? Assessment/Plan: 34 yoF hx of chronic pancreatitis, cholelithiasis s/p CCY c/b de estella choledocholithiais s/p ERCP 04/2020, obesity, bipolar, fibromyalgia, recent admission 10/22-11/06 for pancreatitis presents with abdominal pain since 11/07 being admitted for acute on chronic pancreatitis #Acute on chronic abdominal pain likely 2/2 chronic pancreatitis -Patient with epigastric pain and lipase of 190 on admission (was wnl throughout recent admission) PLAN: -IVFs -Dilaudid 1mg Q3h PRN -zofran 8mg Q8H prn, phenergan for nausea -lyrica 400mg BID (home med) -Patient to establish care with pain management clinic outpatient as previously discussed on discharge 11/06 -Has outpatient fu with GI after being seen by GI during recent hospitalization #Non-bleeding duodenal ulcer, healing gastric ulcer -Noted on EGD 10/22 during last admission and treated with PPI, sucralfate, opioids, zofran, phenergan -No evidence of GIB currently PLAN: -Pantoprazole 40mg BID (to end 12/16) -sucralfate; pain/nausea management as above -avoid NSAIDs -Has outpatient fu with GI #Fibromyalgia-home lyrica #Anxiety- home latuda, venlafaxine #Tinea corporis-clotrimazole topical BID; PCP follow up #Right breast mass-24mm mass, stablex4 years, PCP follow up #Obesity-BMI 37 F: 1L LR w/100cc/hr E: prn N: CLD DVT PPx: pLov FULL CODE Cosigned by Tricia Clarke MD at 11/11/2020 11:18 AM EDT Associated attestation - Tricia Clarke MD - 11/11/2020 11:18 AM EDT I saw and evaluated the patient with the resident/fellow on 11/11/20 (billing date of service). I discussed the case with the resident/fellow and agree with the findings and plan as documented. Labs personally reviewed with CBC nml, lipase 190, Cr 0.56, AST/ALT 42/124, alk phos 152, total bilirubin nml. CT abd/pelvis from 10/28 personally reviewed with normal pancreas. Previous records reviewed showing recent admission for acute on chronic pancreatitis with prolongedstay. Work-up unremarkable for cause. Nobleeding doudenal ulcer also diagnosed on CT and then EGD with treatment started. No evidence of pancreatitis on CT imaging in the past. Problem List: - Acute on chronic pancreatitis (possible sphincter of Oddi dysfunction on outside ERCP 05/13 without change in symptoms), with tobacco use and alcohol use contributing - s/p cholecystectomy after cholecystitis with then development choledocholithiasis s/p ERCP 04/2020 - Nonbleeding duodenal ulcer - Tobacco use disorder - Tinea corpora - Chronic conditions: Obesity, Bipolar disorder by report, Anxiety, Fibromyalgia, Hypertension, Right breast mass being followed, marijuana use Continue pain control- requiring IV Dilaudid initially, transitioning to PO pain medicine while tolerating PO. Work to get early nutrition (tolerating so far) with low fat diet.. Assess fluid status and titrate IV fluids if needed. Outpatient pain clinic and GI. Can proceed with routine MRCP while here, given difficulty in staying out of hospital. Counseling on alcohol and smoking cessation. Start PRN Vistaril for anxiety component that may be amplifying pain. * ED Provider Notes - Sammy Franco MD - 11/10/2020 2:04 PM EDT Images from the original note were not included. HPI Chief Complaint Patient presents with ??? Abdominal Pain Lila Mcnally is a 34 yrs old female with a PMHx of pancreatitis that presents to the ED today for abdominal pain. Pt reports progressively severe abdominal pain that is localized to the epigastric region and radiates to the back. Pt also states she has been having nausea and vomiting. Pt states she was d/c from the hospital 3x days ago for acute pancreatitis. Pt also reports hx of stomach and cholecystectomy. Pt denies any other associated pain or symptoms and has no other acute complaints at this time. Lila Mcnally is a 34 y.o. female with history of pancreatitis who presents with epigastric abdominalpain. Patient has taken omeprazole with no relief of symptoms. - Symptom began 3 days prior to arrival. - Severity: severe - Timing: constant - Quality: sharp - Pain is exacerbated by nothing. Pain radiates to nowhere. - Pain is not exacerbated by movement. - Symptoms are associated with vomiting. - Symptoms are not associated with bloody vomiting. - Improved by nothing. - Not improved by rest. 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 Anxiety ??? Depression ??? Fibromyalgia ??? GERD (gastroesophageal reflux disease) ??? Hypertension ??? Nicotine dependence ??? Obesity ??? Pancreatitis Past Surgical History: Procedure Laterality Date ??? CHOLECYSTECTOMY ??? ERCP Family History Problem Relation Name Age of Onset ??? Hypertension Mother ??? No Known Problems Father Tobacco Use ??? Smoking status: Current Every Day Smoker Packs/day: 0.50 Types: Cigarettes ??? Smokeless tobacco: Never Used Vaping Use ??? Vaping Use: Never used Substance Use Topics ??? Alcohol use: Yes Comment: Alcoholic Drinks/day: Minimum alcohol consumption ??? Drug use: Yes Frequency: 4.0 times per week Types: Marijuana none Occupational History ??? Not on file [...] of the following new or worsening symptoms? Diarrhea Have you traveled internationally or domestically in the last month? No Travel History Travel since 10/10/20 No documented travel since 10/10/20 Relevant Domestic Travel History: no Immunization History not reviewed VACCINE/DOSE DATE Flu 11/21/2019 Tetanus Pneumovax Shingles Allergies Allergen Reactions ??? [...] are negative. Physical Exam ED Triage Vitals [11/10/20 1429] Temp Heart Rate Resp BP 37 ??C (98.6 ??F) 78 16 (!) 148/112 SpO2 Temp Source Heart Rate Source Patient [...] distress. Breath sounds: No stridor. Abdominal: General: Abdomen is flat. There is no distension. Tenderness: There is abdominal tenderness in the epigastric area. There is no guarding or rebound. Musculoskeletal: General: No deformity. Normal range of motion. Cervical back: Normal range of motion and neck supple. No rigidity. Skin: General: Skin is warm and dry. Coloration: Skin is not jaundiced or pale. Neurological: General: No focal deficit present. Mental Status: She is alert and oriented to person, place, and time. Mental status is at baseline. Psychiatric: Mood and Affect: Mood normal. Affect is tearful. Behavior: Behavior normal. Thought Content: Thought content normal. Judgment: Judgment normal. ED Course & MDM ED Course as of Nov 11 1751 Sat Nov 10, 2020 1646 bb WBC: 8.29 1646 bb Hemoglobin: 11.5 1713 bb SARS CoV-2/COVID-19 RNA PCR Result: Not Detected 1744 bb Lipase(!): 190 Clinical Impressions as of Nov 11 1751 Acute pancreatitis without infection or necrosis, unspecified pancreatitis type MDM Number of Diagnoses or Management Options Acute pancreatitis without infection or necrosis, unspecified pancreatitis type Diagnosis management comments: Lila Mcnally is a 34 yrs old female presents today for abdominal pain. Differential diagnosis of abdominal pain includes, but is not limited to, AAA, appendicitis, ectopic, torsion, PID, diverticulitis, pancreatitis, gastritis, IBD, cholecystitis, SBO/LBO, mesenteric ischemia, intra-abdominal abscess, and perforated bowel. All of these have been considered. Labs reveal normal WBC, lipase acutely elevated to 190. Pt has received two doses of 1mg IV dilaudid each, 12.5mg IV phenrgan, IVFs 1000ml NS without significant relief of pain. IM consulted for admission. Medications sodium chloride 0.9 % infusion 1,000 mL (has no administration in time range) HYDROmorphone (Dilaudid) injection 1 mg (has no administration in time range) promethazine (Phenergan) injection 12.5 mg (has no administration in time range) Lab Results Labs Reviewed SARS COV2 COVID 19/INFLUENZA A, B CBC WITH AUTO DIFFERENTIAL COMPREHENSIVE METABOLIC PANEL, PLASMA LIPASE, PLASMA TEST QUALITATIVE PLASMA Imaging Results No orders to display 11/10/2020, 3:27 PM Scribe Attestation: This note was dictated to me, Garrison Conroy, acting as a scribe for Dr. Sammy Florence MD. Attending Attestation: This documentation was recorded by Garrison Conroy acting as a scribe in my presence at the time of the encounter and accurately reflects the service I personally performed and thedecisions made by me. Amount and/or Complexity of Data Reviewed Decide to obtain previous medical records or to obtain history from someone other than the patient:yes Sammy Franco MD 11/10/20 [id number] * ED Triage Notes - Andrew Gonzalez, RN - 11/10/2020 2:04 PM EDT Pt with c/o abd pain since last night. Pt with hx of pancreatitis and pain is similar. Pt with recent admit for same. documented in this encounter Plan of Treatment Scheduled Referrals Name Type Priority Associated Diagnoses Order Schedule Discharge Ambulatory referral to Gastroenterology Outpatient Referral Routine Abdominal pain, epigastric Expected: 11/16/2020 (Approximate), Expires: 05/16/2021 documented as of this encounter Procedures Procedure Name Priority Date/Time Associated Diagnosis Comments LIPASE, PLASMA Routine 11/20/2020 1:23 AM EDT XR ABDOMEN 1 VIEW Routine 11/19/2020 11: 44 PM EDT EXTRA TUBE LAVENDER TOP Routine 11/18/19 2:20 PM EDT EXTRA TUBES Routine 11/17/2020 2:20 PM EDT HSV 1/2 QUANTITATIVE PCR, BLOOD Routine 11/17/2020 2:16 PM EDT COMPREHENSIVE METABOLIC PANEL, PLASMA Routine 11/17/2020 2:13 PM EDT C-REACTIVE PROTEIN, PLASMA Routine 11/17 1:32 PM EDT TSH Routine 11/17/2020 1:32 PM EDT EGD Routine 11/16/2020 1:57 PM EDT Duodenal ulcer PHOSPHATIDYLETHANOL (PETH), WHOLE BLOOD, QUANTITATIVE (SO) Routine 11/15/2020 6:58 PM EDT CBC W/O DIFFERENTIAL Routine 11/14/2020 10:41 PM EDT LIPASE, PLASMA Routine 11/14/2020 10:41 PM EDT COMPREHENSIVE METABOLIC PANEL, PLASMA Routine 11/14/2020 10:41 PM EDT POCT GLUCOSE METER UNSOLICITED RESULTS Routine 11/13/2020 4:19 PM EDT MR ABDOMEN W AND WO IV CONTRAST Routine 11/12/2020 6:01 PM EDT COMPREHENSIVE METABOLIC PANEL, PLASMA Routine 11/11/2020 2:56 AM EDT SARS COV2 COVID 19/INFLUENZA A, B STAT 11/10/2020 4:33 PM EDT CBC WITH AUTO DIFFERENTIAL STAT 11/10 4:32 PM EDT TEST QUALITATIVE PLASMA STAT 11/10/2020 4:32 PM EDT LIPASE, PLASMA STAT 11/10/2020 4:32 PM EDT COMPREHENSIVE METABOLIC PANEL, PLASMA STAT 11/10/2020 4:32 PM EDT documented in this encounter Results * Lipase (11/20/2020 1:23 AM EDT) Lipase, Plasma 43 19 - 63 U/L 11/20/2020 1:42 AM EDT [facility] Blood Venous blood specimen / Unknown Venipuncture / Unknown 11/20/2020 1:23 AM EDT 11/20/2020 1:30 AM EDT us Millicent Irvin PA LAB BLOOD ORDERABLES Carolina l Result Performing Organization Address City/State/[facility] Co de Phone Number [facility] [address] [place], [place] [id number] * XR Abdomen 1 View (11/19/2020 11:44 PM EDT) Anatomical Region Laterality Modality Body Digital Radiogra phy Impressions 11/20/2020 12:36 AM EDT No acute findings within the abdomen and pelvis. CRITICAL RESULT: ?? No. COMMUNICATION: Per this written report. Signed by Leny Dale on ??11/20/2020 12:36 AM Narrative 11/20/2020 12:36 AM EDT Exam/Procedure: XR ABDOMEN 1 VIEW ordered by MILLICENT IRVIN, [id number] CLINICAL INDICATION: Abdominal pain TECHNIQUE: XR ABDOMEN 1 VIEW COMPARISON: MRI performed 11/12/2020 FINDINGS: Cholecystectomy clips are present. No evidence of bowel obstruction. Stool is present throughout the colon. No pneumatosis or pneumoperitoneum. No abnormal calcifications project over the abdomen and pelvis. Procedure Note Leny Dale, DO - 11/20/2020 Exam/Procedure: XR ABDOMEN 1 VIEW ordered by MILLICENT IRVIN, [id number] CLINICAL INDICATION: Abdominal pain TECHNIQUE: XR ABDOMEN 1 VIEW COMPARISON: MRI performed 11/12/2020 FINDINGS: Cholecystectomy clips are present. No evidence of bowel obstruction. Stoolis present throughout the colon. No pneumatosis or pneumoperitoneum. Noabnormal calcifications project over the abdomen and pelvis. IMPRESSION: No acute findings within the abdomen and pelvis. CRITICAL RESULT: No. COMMUNICATION: Per this written report. Signed by Leny Dale on 11/20/2020 12:36 AM us Millicent NAJERA IMG XR PROCEDURES Final R esult * Lavender Top (11/17/2020 2:20 PM EDT) Pathologist [facility] Extra Hold for add-ons. 11/17/2020 5:01 PM EDT [facility] Comment:Auto resulted. Blood Venous blood specimen / Unknown 11/17/2020 2:20 PM EDT 11/17/2020 2:20 PM EDT us Tricia Clarke MD LAB BLOOD ORDERABLES Final Resul t [facility] [address] [place] [id number] * HSV 1/2 Quant, PCR Blood (11/17/2020 2:16 PM EDT) Pathologist [facility] HSV 1 PCR, BLOOD Not Detected Not Detected copies/mL 11/21/2020 11:27 AM EDT [facility] ([facility]) HSV 2 PCR, BLOOD Not Detected Not Detected copies/mL 11/21/2020 11:27 AM EDT [facility] ([facility]) Comment: Assay Range for HSV 1 is 37 copies/mL to 1.00E+08 copies/mL Assay Range for HSV 2 is 73 copies/mL to 1.00E+08 copies/mL The limit of quantitation (LOQ) is 37 (HSV 1) and 73 (HSV 2) copies/mL. HSV DNA detected below the LOQ will be reported as Detected:<37 copies/mL (HSV 1) or Detected:<73 copies/mL (HSV 2). This test was developed and its performance characteristics determined by [facility]. It has not been cleared or approved by the U.S. Food and Drug Administration. Results should be used in conjunction with clinical findings, and should not form the sole basis for a diagnosis or treatment decision. Testing Performed at: [facility] [address] [place] [address] Clinical Writer: Oskar Ochoa Ph.D., OSCAR (ABB) CLIA#: [id number] Phone: Venous blood specimen / Unknown 11/17/2020 2:16 PM EDT 11/17/2020 2:18 PM EDT Narrative ARMANDO PIERCE) - 11/21/2020 11:27 AM EDT Release to patient in [facility]->Immediate us Tricia Clarke MD LAB BLOOD ORDERABLES Final Resul t ARMANDO PIERCE) * (ABNORMAL) Comprehensive metabolic panel (11/17/2020 2:13 PM EDT) [facility] Glucose, Plasma 99 74 - 99 mg/dL 11/17/2020 2:42 PM EDT [facility] BUN, Plasma 10 7 - 21 mg/dL 11/17/2020 2:42 PM EDT [facility] Creatinine, Plasma 0.85 0.60 - 1.10 mg/dL 11/17/2020 2:42 PM EDT [facility] BUN/Creatinine Ratio 12 11/17/2020 2:42 PM EDT [facility] Sodium, Plasma 140 136 - 145 mmol/L 11/17/2020 2:42 PM EDT [facility] Potassium, Plasma 4.2 3.7 - 4.8 mmol/L 11/17/2020 2:42 PM EDT [facility] Chloride, Plasma 104 97 - 107 mmol/L 11/17/2020 2:42 PM EDT [facility] CO2, Plasma 25 22 - 29 mmol/L 11/17/2020 2:42 PM EDT [facility] Anion Gap 11 6 - 16 mmol/L 11/17/2020 2:42 PM EDT [facility] Total Calcium, Plasma 8.9 8.9 - 10.2 mg/dL 11/17/2020 2:42 PM EDT [facility] Total Protein 6.4 6.3 - 7.9 g/dL 11/17/2020 2:42 PM EDT [facility] Albumin, Plasma 3.9 3.5 - 5.2 g/dL 11/17/2020 2:42 PM EDT [facility] AST, Plasma 75(H) 11 - 32 U/L 11/17/2020 2:42 PM EDT [facility] ALT, Plasma 108(H) 8 - 33 U/L 11/17/2020 2:42 PM EDT [facility] Alkaline Phosphatase, Plasma 138(H) 35 - 104 U/L 11/17/2020 2:42 PM EDT [facility] Total Bilirubin, Plasma 0.3 0.2 - 1.1 mg/dL 11/17/2020 2:42 PM EDT [facility] eGFR >60 >60 mL/min/1.7 3m*2 11/17/2020 2:42 PM EDT [facility] Comment:eGFR = estimated GFR ; eGFR units = mL/min/1.73 sq meters Chronic Kidney Disease is considered if eGFR <60 mL/min/1.73 sq meters Kidney failure is considered if eGFR is <15 mL/min/1.73 sq meters. eGFR assumes steady state plasma creatinine concentration; not applicable if renal function is rapidly changing or patient is on dialysis. eGFR, if AFR/AM >60 >60 mL/min/1.7 3m*2 11/17/2020 2:42 PM EDT [facility] Comment:eGFR = estimated GFR ; [...] blood specimen / Unknown Venipuncture / Unknown 11/17/2020 2:13 PM EDT 11/17/2020 2:18 PM EDT us Tricia Clarke MD LAB BLOOD ORDERABLES Final Resul t [facility] [address] [place] [address] * C-reactive protein (11/17/2020 1:32 PM EDT) CRP, Plasma 4.4 <=8.0 mg/L 11/17/2020 2:48 PM EDT [facility] Blood Venous blood specimen / Unknown Venipuncture / Unknown 11/17/2020 1:32 PM EDT 11/17/2020 2:18 PM EDT Narrative [facility] - 11/17/2020 2:48 PM EDT This CRP test is appropriate for assessment of infection, systemic inflammation and/or tissue injury. To assess cardiovascular disease risk order high sensitivity CRP (CRPH). Tricia Clarke MD LAB BLOOD ORDERABLES Final Resul t Performing Organization Address [facility] de Phone Number [facility] [address] [place] [address] * TSH (11/17/2020 1:32 PM EDT) Thyroid Stimulating Hormone, Plasma 1.34 0.40 - 4.20 uIU/mL 11/17/2020 2:48 PM EDT [facility] Blood Venous blood specimen / Unknown Venipuncture / Unknown 11/17/2020 1:32 PM EDT 11/17/2020 2:18 PM EDT Narrative [facility] - 11/17/2020 2:48 PM EDT Trimester Specific Ranges ?TSH (??IU/mL) 1st Trimester ??0.1 ??- 3.0 2nd Trimester ??0.19 - 4.06 3rd Trimester ??0.3 ??- 3.7 us Tricia Clarke MD LAB BLOOD ORDERABLES Final Resul t Performing Organization Address [facility] Phone Number [facility] [address] [place] [address] * EGD RAIZA VARGAS; 11/16/2020 (11/16/2020 1:57 PM EDT) Anatomical Region Laterality Modality Endoscopy Narrative 11/16/2020 2:46 PM EDT Impression Overall Impression: - Normal esophagus, stomach and duodenum. Recommendation Continue with current medication Indication Duodenal ulcer Abdominal pain Medications No administrations occurring from 1334 to 1356 on 11/16/20 Staff Staff Role Raiza Vargas MD Proceduralist Sonal Sherwood, RN Endo Nurse Agnes Hernandez, RN Endo Nurse Vineet Handy MD Proceduralist Preprocedure A history and physical has [...] was present for the entire procedure Specimens No Biopsies obtained during this procedure. Findings The esophagus appeared normal. The stomach appeared normal. The duodenum appeared normal. us Tricia Clarke MD GI PROCEDURE ORDERABLES Final Re sult * Phosphatidylethanol (PEth), Whole Blood, Quant (11/15/2020 6:58 PM EDT) PEth 16:0/18:1 (POPEth) <10 ng/mL 11/20/2020 2:58 AM EDT [facility] ([facility]) PEth 16:0/18:2 (PLPEth) <10 ng/mL 11/20/2020 2:58 AM EDT [facility] ([facility]) Blood Venous blood specimen / Unknown Venipuncture / Unknown 11/15/2020 6:58 PM EDT 11/15/2020 7:16 PM EDT Narrative [facility] ([facility]) - 11/20/2020 2:58 AM EDT INTERPRETIVE INFORMATION:Phosphatidylethanol (PEth), Whole Blood Phosphatidylethanol (PEth) homologues Result Interpretation PEth 16:0/18:1 (POPEth) ? Less than 10 ng/mL............Not detected Less than 20 ng/mL............Abstinence or light alcohol ?consumption 20 ??200 ng/mL................Moderate alcohol consumption Greater than 200 ng/mL........Heavy alcohol consumption or ?chronic alcohol use PEth 16:0/18:2 (PLPEth).......Reference ranges are not well ?established. (Reference: Zayra Ingram and Aishwarya Thompsno 2018 J. Forensic Sci) Phosphatidylethanol (PEth) is a group of phospholipids formed in the presence of ethanol, phospholipase D and phosphatidylcholine. PEth is known to be a direct alcohol biomarker. The predominant PEth homologues are PEth 16:0/18:1 (POPEth) and PEth 16:0/18:2 (PLPEth), which account for 37-46% and 26-28% of the total PEth homologues, respectively. PEth is incorporated into the phospholipid membrane of red blood cells and has a general half-life of 4 ??10 days and a window of detection of 2-4 weeks. However, the window of detection is longer in individuals who chronically or excessively consume alcohol. The limit of quantification is 10 ng/mL. Serial monitoring of PEth may be helpful in monitoring alcohol abstinence over time. PEth results should be interpreted in the context of the patient's clinical and behavioral history. Patients with advanced liver disease may have falsely elevated PEth concentrations (Tresa CANALES et al 2018, Alcoholism Clinical & Experimental Research). Test developed and characteristics determined by [facility]. See Compliance Statement B: [employer]/CS Performed By: [facility] [address] [place] [id number] Clinical Writer: Linda Mancilla MD Tricia Clarke MD LAB REF LAB BLOOD AND FLUID ORD Final Result [facility] ([facility]) [address] [place] [address] * CBC W/O Differential (11/14/2020 10:41 PM EDT) WBC Count 7.11 3.70 - 10.30 10*3/uL LAB HEMATOLOGY METHOD 11/14/2020 11:29 PM EDT [facility] RBC Count 4.05 3.90 - 5.20 10*6/uL LAB HEMATOLOGY METHOD 11/14/2020 11:29 PM EDT [facility] HGB 11.8 11.2 - 15.7 g/dL LAB HEMATOLOGY METHOD 11/14/2020 11:29 PM EDT [facility] HCT 36.0 34.0 - 45.0 % LAB HEMATOLOGY METHOD 11/14/2020 11:29 PM EDT [facility] Platelet Count 229 155 - 369 10*3/uL LAB HEMATOLOGY METHOD 11/14/2020 11:29 PM EDT [facility] MCV 89 79 - 98 fL LAB HEMATOLOGY METHOD 11/14/2020 11:29 PM EDT [facility] MCH 29.1 26.0 - 32.0 pg LAB HEMATOLOGY METHOD 11/14/2020 11:29 PM EDT [facility] MCHC 32.8 30.7 - 35.5 g/dL LAB HEMATOLOGY METHOD 11/14/2020 11:29 PM EDT [facility] RDW 13.4 11.5 - 14.5 % LAB HEMATOLOGY METHOD 11/14/2020 11:29 PM EDT [facility] MPV 10.2 8.8 - 12.5 fL LAB HEMATOLOGY METHOD 11/14/2020 11:29 PM EDT [facility] nRBC 0.0 <=0.0 per 100 WBCs LAB HEMATOLOGY METHOD 11/14/2020 11:29 PM EDT [facility] Blood Venous blood specimen / Unknown Venipuncture / Unknown 11/14/2020 10:41 PM EDT 11/14/2020 11:27 PM EDT us Walt Medina MD LAB BLOOD ORDERABLES Final Re sult [facility] [address] [place] [address] * Lipase (11/14/2020 10:41 PM EDT) Pathologist [facility] Lipase, Plasma 23 19 - 63 U/L 11/14/2020 11:45 PM EDT [facility] Blood Venous blood specimen / Unknown Venipuncture / Unknown 11/14/2020 10:41 PM EDT 11/14/2020 11:27 PM EDT Walt Medina MD LAB BLOOD ORDERABLES Final Re sult [facility] [address] [place] [address] * (ABNORMAL) Comprehensive metabolic panel (11/14/2020 10:41 PM EDT) Pathologist [facility] Glucose, Plasma 98 74 - 99 mg/dL 11/14/2020 11:45 PM EDT [facility] BUN, Plasma 7 7 - 21 mg/dL 11/14/2020 11:45 PM EDT [facility] Creatinine, Plasma 0.81 0.60 - 1.10 mg/dL 11/14/2020 11:45 PM EDT [facility] BUN/Creatinine Ratio 9 11/14/2020 11:45 PM EDT [facility] Sodium, Plasma 136 136 - 145 mmol/L 11/14/2020 11:45 PM EDT [facility] Potassium, Plasma 4.2 3.7 - 4.8 mmol/L 11/14/2020 11:45 PM EDT [facility] Chloride, Plasma 100 97 - 107 mmol/L 11/14/2020 11:45 PM EDT [facility] CO2, Plasma 27 22 - 29 mmol/L 11/14/2020 11:45 PM EDT [facility] Anion Gap 9 6 - 16 mmol/L 11/14/2020 11:45 PM EDT [facility] Total Calcium, Plasma 9.2 8.9 - 10.2 mg/dL 11/14/2020 11:45 PM EDT [facility] Total Protein 6.8 6.3 - 7.9 g/dL 11/14/2020 11:45 PM EDT [facility] Albumin, Plasma 4.0 3.5 - 5.2 g/dL 11/14/2020 11:45 PM EDT [facility] AST, Plasma 125(H) 11 - 32 U/L 11/14/2020 11:45 PM EDT [facility] ALT, Plasma 169(H) 8 - 33 U/L 11/14/2020 11:45 PM EDT [facility] Alkaline Phosphatase, Plasma 156(H) 35 - 104 U/L 11/14/2020 11:45 PM EDT [facility] Total Bilirubin, Plasma 0.2 0.2 - 1.1 mg/dL 11/14/2020 11:45 PM EDT [facility] eGFR >60 >60 mL/min/1.7 3m*2 11/14/2020 11:45 PM EDT [facility] Comment:eGFR = estimated GFR ; eGFR units = mL/min/1.73 sq meters Chronic Kidney Disease is considered if eGFR <60 mL/min/1.73 sq meters Kidney failure is considered if eGFR is <15 mL/min/1.73 sq meters. eGFR assumes steady state plasma creatinine concentration; not applicable if renal function is rapidly changing or patient is on dialysis. eGFR, if AFR/AM >60 >60 mL/min/1.7 3m*2 11/14/2020 11:45 PM EDT [facility] Comment:eGFR = estimated GFR ; [...] blood specimen / Unknown Venipuncture / Unknown 11/14/2020 10:41 PM EDT 11/14/2020 11:27 PM EDT us Walt Medina MD LAB BLOOD ORDERABLES Final Re sult [facility] [address] [place] [address] * (ABNORMAL) POCT glucose meter (11/13/2020 4:19 PM EDT) POCT Glucose 104(H) 74 - 99 mg/dL 11/13/2020 4:25 PM EDT [facility] Comment:Accuracy of [...] to the main labortory for testing. Comment 11/13/2020 4:25 PM EDT [facility] Dog Races Manager ID Francis Govea 4:25 PM EDT [facility] Device ID [id number] 11/13/2020 4:25 PM EDT [facility] Specimen Type POC Capillary 11/13/2020 4:25 PM EDT [facility] Blood Capillary blood specimen / Unknown 11/13/2020 4:19 PM EDT 11/13/2020 4:25 PM EDT us Tricia Clarke MD LAB POINT OF CARE TE ST DOCKED DEVICE UNSOLICITED RESULTS Final Result Performing Organization Address City/State/[facility] Phone Number [facility] [address] [place] [address] * MR Abdomen w and wo IV Contrast (11/12/2020 6:01 PM EDT) Anatomical Region Laterality Modality Abdomen Magnetic Resonan ce Impressions 11/12/2020 6:49 PM EDT No acute findings in the imaged abdomen. No biliary ductal dilatation. No choledocholithiasis. No findings of acute pancreatitis. CRITICAL RESULT: No. COMMUNICATION: Per this written report. Signed by Beba Bourgeois on ??11/12/2020 6:49 PM Narrative 11/12/2020 6:49 PM EDT Exam/Procedure: MR ABDOMEN W AND WO IV CONTRAST ordered by TRICIA CLARKE, [id number] CLINICAL INDICATION: Nausea/vomiting TECHNIQUE: MR imaging of the abdomen was [...] thick slab, 2D, and 3D MRCP sequences. 10 mL of Gadavist was administered. COMPARISON: None. FINDINGS: Gallbladder: Absent. Bile Duct: Normal. No stricture, choledocholithiasis, epithelial thickening or abnormal enhancement. Pancreatic Duct: Normal caliber and outline. Normal biliopancreatic junction. No pancreas divisum. Pancreas: Normal signal and enhancement. No evidence of acute or chronic inflammation. No pancreatic mass. Liver: Normal signal and morphology. No focal liver lesions. Patent hepatic vasculature. Spleen: At the upper limits of normal in size measuring 13 cm in craniocaudal dimension. Normal signal and enhancement. No focal lesions or infarcts. Adrenal Glands: Normal. Kidneys: Normal. Fluid Survey: No ascites. Vasculature: Normal caliber and patent aorta and major visceral branches. Normal caliber and patent IVC and major abdominal venous vasculature. Lymph Nodes: No adenopathy. Bones: No abnormal marrow signal. Other: Visualized GI tract is normal. No focal abnormalities in the lower lungs. No effusions. Redemonstration of right breast lesion, which demonstrates low T2 signal and inherent T1 shortening. Procedure Note Beba Bourgeois MD - 11/12/2020 Exam/Procedure: MR ABDOMEN W AND WO IV CONTRAST ordered by TRICIA CLARKE,[id number] CLINICAL INDICATION: Nausea/vomiting TECHNIQUE: MR imaging of the abdomen was performed with and without intravenouscontrast material using the following sequences: coronal single shot [id number] fast spin echo, axial T2 weighted sequences with and without fatsaturation, axial dual phase gradient echo, pre and dynamic postcontrast3-D T1 weighted gradient echo with fat saturation (axial and coronal), andaxial diffusion. Heavily T2-weighted thick slab, 2D, and 3D MRCPsequences. 10 mL of Gadavist was administered. COMPARISON: None. FINDINGS: Gallbladder: Absent. Bile Duct: Normal. No stricture, choledocholithiasis, epithelialthickening or abnormal enhancement. Pancreatic Duct: Normal caliber and outline. Normal biliopancreaticjunction. No pancreas divisum. Pancreas: Normal signal and enhancement. No evidence of acute or chronicinflammation. No pancreatic mass. Liver: Normal signal and morphology. No focal liver lesions. Patenthepatic vasculature. Spleen: At the upper limits of normal in size measuring 13 cm incraniocaudal dimension. Normal signal and enhancement. No focal lesions orinfarcts. Adrenal Glands: Normal. Kidneys: Normal. Fluid Survey: No ascites. Vasculature: Normal caliber and patent aorta and major visceral branches.Normal caliber and patent IVC and major abdominal venous vasculature. Lymph Nodes: No adenopathy. Bones: No abnormal marrow signal. Other: Visualized GI tract is normal. No focal abnormalities in the lowerlungs. No effusions. Redemonstration of right breast lesion, whichdemonstrates low T2 signal and inherent T1 shortening. IMPRESSION: No acute findings in the imaged abdomen. No biliary ductal dilatation. No choledocholithiasis. No findings of acute pancreatitis. CRITICAL RESULT: No. COMMUNICATION: Per this written report. Signed by Beba Bourgeois on 11/12/2020 6:49 PM us Tricia Clarke MD IM MRI PROCEDURES Final Result * (ABNORMAL) Comprehensive metabolic panel (11/11/2020 2:56 AM EDT) Glucose, Plasma 87 74 - 99 mg/dL 11/11/2020 3:42 AM EDT [facility] BUN, Plasma 8 7 - 21 mg/dL 11/11/2020 3:42 AM EDT [facility] Creatinine, Plasma 0.56(L) 0.60 - 1.10 mg/dL 11/11/2020 3:42 AM EDT [facility] BUN/Creatinine Ratio 14 11/11/2020 3:42 AM EDT [facility] Sodium, Plasma 138 136 - 145 mmol/L 11/11/2020 3:42 AM EDT [facility] Potassium, Plasma 4.0 3.7 - 4.8 mmol/L 11/11/2020 3:42 AM EDT [facility] Chloride, Plasma 103 97 - 107 mmol/L 11/11/2020 3:42 AM EDT [facility] CO2, Plasma 25 22 - 29 mmol/L 11/11/2020 3:42 AM EDT [facility] Anion Gap 10 6 - 16 mmol/L 11/11/2020 3:42 AM EDT [facility] Total Calcium, Plasma 9.1 8.9 - 10.2 mg/dL 11/11/2020 3:42 AM EDT [facility] Total Protein 6.6 6.3 - 7.9 g/dL 11/11/2020 3:42 AM EDT [facility] Albumin, Plasma 3.8 3.5 - 5.2 g/dL 11/11/2020 3:42 AM EDT [facility] AST, Plasma 38(H) 11 - 32 U/L 11/11/2020 3:42 AM EDT [facility] ALT, Plasma 114(H) 8 - 33 U/L 11/11/2020 3:42 AM EDT [facility] Alkaline Phosphatase, Plasma 152(H) 35 - 104 U/L 11/11/2020 3:42 AM EDT [facility] Total Bilirubin, Plasma <0.2(L) 0.2 - 1.1 mg/dL 11/11/2020 3:42 AM EDT [facility] eGFR >60 >60 mL/min/1.7 3m*2 11/11/2020 3:42 AM EDT [facility] Comment:eGFR = estimated GFR ; eGFR units = mL/min/1.73 sq meters Chronic Kidney Disease is considered if eGFR <60 mL/min/1.73 sq meters Kidney failure is considered if eGFR is <15 mL/min/1.73 sq meters. eGFR assumes steady state plasma creatinine concentration; not applicable if renal function is rapidly changing or patient is on dialysis. eGFR, if AFR/AM >60 >60 mL/min/1.7 3m*2 11/11/2020 3:42 AM EDT [facility] Comment:eGFR = estimated GFR ; [...] blood specimen / Unknown Venipuncture / Unknown 11/11/2020 2:56 AM EDT 11/11/2020 3:13 AM EDT us Tricia Clarke MD LAB BLOOD ORDERABLES Final Resul t [facility] [address] [place] [address] * SARS-CoV-2 COVID-19/Influenza A,B (11/10/2020 4:33 PM EDT) SARS CoV-2/COVID-1 9 RNA PCR Result Not Detected Not Detected 11/10/2020 5:12 PM EDT [facility] Influenza A Virus PCR Result Not Detected Not Detected 11/10/2020 5:12 PM EDT [facility] Influenza B Virus PCR Result Not Detected Not Detected 11/10/2020 5:12 PM EDT [facility] Swab Nasopharyngeal structure / Unknown Non-blood Collection / Unknown 11/10/2020 4:33 PM EDT 11/10/2020 4:38 PM EDT [facility] - 11/10/2020 5:12 PM EDT This test was performed using [...] signs and symptoms consistent with COVID-19. us Sammy Franco MD LAB MICROBIOLOGY - GENER AL ORDERABLES Final Result [facility] [address] [place] [address] * Test Qualitative Plasma (11/10/2020 4:32 PM EDT) [facility] Test Negative Negative 11/10/2020 5:31 PM EDT [facility] Blood Venous blood specimen / Unknown Venipuncture / Unknown 11/10/2020 4:32 PM EDT 11/10/2020 4:38 PM EDT Narrative [facility] - 11/10/2020 5:31 PM EDT Reference Range: Males and non- females: Negative. us Sammy Franco MD LAB BLOOD ORDERABLES Fin al Result Performing Organization Address [facility] Co de Phone Number [facility] [address] [place] [address] * (ABNORMAL) Lipase, Plasma (11/10/2020 4:32 PM EDT) Lipase, Plasma 190(H) 19 - 63 U/L 11/10/2020 5:31 PM EDT [facility] Blood Venous blood specimen / Unknown Venipuncture / Unknown 11/10/2020 4:32 PM EDT 11/10/2020 4:38 PM EDT us Sammy Franco MD LAB BLOOD ORDERABLES Fin al Result Performing Organization Address [facility] de Phone Number [facility] [address] [place] [address] * (ABNORMAL) Comprehensive Metabolic Panel, Plasma (11/10/2020 4:32 PM EDT) Glucose, Plasma 93 74 - 99 mg/dL 11/10/2020 5:31 PM EDT [facility] BUN, Plasma 11 7 - 21 mg/dL 11/10/2020 5:31 PM EDT [facility] Creatinine, Plasma 0.61 0.60 - 1.10 mg/dL 11/10/2020 5:31 PM EDT [facility] BUN/Creatinine Ratio 18 11/10/2020 5:31 PM EDT [facility] Sodium, Plasma 137 136 - 145 mmol/L 11/10/2020 5:31 PM EDT [facility] Potassium, Plasma 4.4 3.7 - 4.8 mmol/L 11/10/2020 5:31 PM EDT [facility] Chloride, Plasma 103 97 - 107 mmol/L 11/10/2020 5:31 PM EDT [facility] CO2, Plasma 19(L) 22 - 29 mmol/L 11/10/2020 5:31 PM EDT [facility] Anion Gap 15 6 - 16 mmol/L 11/10/2020 5:31 PM EDT [facility] Total Calcium, Plasma 9.2 8.9 - 10.2 mg/dL 11/10/2020 5:31 PM EDT [facility] Total Protein 6.8 6.3 - 7.9 g/dL 11/10/2020 5:31 PM EDT [facility] Albumin, Plasma 3.8 3.5 - 5.2 g/dL 11/10/2020 5:31 PM EDT [facility] AST, Plasma 42(H) 11 - 32 U/L 11/10/2020 5:31 PM EDT [facility] ALT, Plasma 124(H) 8 - 33 U/L 11/10/2020 5:31 PM EDT [facility] Alkaline Phosphatase, Plasma 162(H) 35 - 104 U/L 11/10/2020 5:31 PM EDT [facility] Total Bilirubin, Plasma <0.2(L) 0.2 - 1.1 mg/dL 11/10/2020 5:31 PM EDT [facility] eGFR >60 >60 mL/min/1.7 3m*2 11/10/2020 5:31 PM EDT [facility] Comment:eGFR = estimated GFR ; eGFR units = mL/min/1.73 sq meters Chronic Kidney Disease is considered if eGFR <60 mL/min/1.73 sq meters Kidney failure is considered if eGFR is <15 mL/min/1.73 sq meters. eGFR assumes steady state plasma creatinine concentration; not applicable if renal function is rapidly changing or patient is on dialysis. eGFR, if AFR/AM >60 >60 mL/min/1.7 3m*2 11/10/2020 5:31 PM EDT [facility] Comment:eGFR = estimated GFR ; [...] blood specimen / Unknown Venipuncture / Unknown 11/10/2020 4:32 PM EDT 11/10/2020 4:38 PM EDT us Sammy Franco MD LAB BLOOD ORDERABLES Fin al Result [facility] [address] [place] [address] * (ABNORMAL) CBC and Differential (11/10/2020 4:32 PM EDT) WBC Count 8.29 3.70 - 10.30 10*3/uL LAB HEMATOLOGY METHOD 11/10/2020 4:41 PM EDT [facility] RBC Count 3.95 3.90 - 5.20 10*6/uL LAB HEMATOLOGY METHOD 11/10/2020 4:41 PM EDT [facility] HGB 11.5 11.2 - 15.7 g/dL LAB HEMATOLOGY METHOD 11/10/2020 4:41 PM EDT [facility] HCT 34.5 34.0 - 45.0 % LAB HEMATOLOGY METHOD 11/10/2020 4:41 PM EDT [facility] Platelet Count 218 155 - 369 10*3/uL LAB HEMATOLOGY METHOD 11/10/2020 4:41 PM EDT [facility] MCV 87 79 - 98 fL LAB HEMATOLOGY METHOD 11/10/2020 4:41 PM EDT [facility] MCH 29.1 26.0 - 32.0 pg LAB HEMATOLOGY METHOD 11/10/2020 4:41 PM EDT [facility] MCHC 33.3 30.7 - 35.5 g/dL LAB HEMATOLOGY METHOD 11/10/2020 4:41 PM EDT [facility] RDW 13.6 11.5 - 14.5 % LAB HEMATOLOGY METHOD 11/10/2020 4:41 PM EDT [facility] MPV 10.1 8.8 - 12.5 fL LAB HEMATOLOGY METHOD 11/10/2020 4:41 PM EDT [facility] nRBC 0.0 <=0.0 per 100 WBCs LAB HEMATOLOGY METHOD 11/10/2020 4:41 PM EDT [facility] Differential Type Automated LAB HEMATOLOGY METHOD 11/10/2020 4:41 PM EDT [facility] Neutrophils % 63.0 % LAB HEMATOLOGY METHOD 11/10/2020 4:41 PM EDT [facility] Lymphocytes % 30.0 % LAB HEMATOLOGY METHOD 11/10/2020 4:41 PM EDT [facility] Monocytes % 4.0 % LAB HEMATOLOGY METHOD 11/10/2020 4:41 PM EDT [facility] Eosinophils % 0.0 % LAB HEMATOLOGY METHOD 11/10/2020 4:41 PM EDT [facility] Basophils % 1.0 % LAB HEMATOLOGY METHOD 11/10/2020 4:41 PM EDT [facility] Immature Granulocytes % 2.0 % LAB HEMATOLOGY METHOD 11/10/2020 4:41 PM EDT [facility] Neutrophils Absolute 5.24 1.60 - 6.10 10*3/uL LAB HEMATOLOGY METHOD 11/10/2020 4:41 PM EDT [facility] Lymphocytes Absolute 2.47 1.20 - 3.90 10*3/uL LAB HEMATOLOGY METHOD 11/10/2020 4:41 PM EDT [facility] Monocytes Absolute 0.33 0.30 - 0.90 10*3/uL LAB HEMATOLOGY METHOD 11/10/2020 4:41 PM EDT [facility] Eosinophils Absolute 0.00 0.00 - 0.50 10*3/uL LAB HEMATOLOGY METHOD 11/10/2020 4:41 PM EDT [facility] Basophils Absolute 0.06 0.00 - 0.10 10*3/uL LAB HEMATOLOGY METHOD 11/10/2020 4:41 PM EDT [facility] Immature Granulocytes Absolute 0.19(H) 0.00 - 0.06 10*3/uL LAB HEMATOLOGY METHOD 11/10/2020 4:41 PM EDT [facility] Blood Venous blood specimen / Unknown Venipuncture / Unknown 11/10/2020 4:32 PM EDT 11/10/2020 4:38 PM EDT Narrative [facility] - 11/10/2020 4:41 PM EDT Therapeutic decision making should be based on absolute values, rather than percentages. us Sammy Franco MD LAB BLOOD ORDERABLES Fin al Result [facility] [address] [place] [address] documented in this encounter Visit Diagnoses Diagnosis Duodenal ulcer Acute pancreatitis without infection or necrosis, unspecified pancreatitis type Abdominal pain, epigastric Acute on chronic pancreatitis (CMS/HCC) Acute pancreatitis without infection or necrosis Abdominal pain, epigastric documented in this encounter Administered Medications Inactive Administered Medications - up to 3 most recent administrations Medication Order MAR Action Action Date Dose Rate Site acetaminophen (Tylenol) tablet 650 mg 650 mg, Oral, Every 8 hours PRN, Starting on Thu11/10/20 at 1830, Until Thu11/13/20 at 0954, Routine, mild pain Given 11/11/2020 5:57 PM EDT 650 mg Given 11/11/2020 9:59 AM EDT 650 mg acetaminophen (Tylenol) tablet 650 mg 650 mg, Oral, Every 6 hours, First dose (after last modification) on Thu11/13/20 at 1015, Until Discontinued, Routine Given 11/20/2020 9:49 AM EDT 650 mg Given 11/19/2020 9:39 PM EDT 650 mg Given 11/19/2020 4:40 PM EDT 650 mg capsaicin (Zostrix-HP) 0.075 % topical cream Topical, 2 times daily, First dose on Thu11/20/20 at 1115, Until Discontinued, Routine Given 11/20/2020 12:14 PM EDT clotrimazole (Lotrimin) 1 % cream 1 application Topical, 2 times daily, First dose on [facility] 11/10/20 at 2200, Until Discontinued, Routine Given 11/20/2020 9:00 AM EDT 1 application. Given 11/19/2020 9:00 PM EDT 1 application. Given 11/19/2020 9:04 AM EDT 1 application. diclofenac (Voltaren) 1 % topical gel 1 application 1 application., Transdermal, 4 times daily, First dose on Thu11/13/20 at 0945, Until Discontinued, Routine Given 11/20/2020 2:00 PM EDT 1 application. Other Given 11/20/2020 9:00 AM EDT 1 application. Other Given 11/19/2020 10:00 PM EDT 1 application. Other enoxaparin (Lovenox) syringe 30 mg 30 mg, Subcutaneous, 2 times daily, First dose on [facility] 11/10/20 at 2200, Until Discontinued, Routine Given 11/20/2020 9:49 AM EDT 30 mg Left Lower Abdomen Given 11/19/2020 9:38 PM EDT 30 mg Ri ght Lower Abdomen Given 11/19/2020 9:03 AM EDT 30 mg Le ft Lower Abdomen fentaNYL (Sublimaze) injection 50 mcg 50 mcg, Intravenous, Once, 1 dose, On Thu11/16/20 at 1445, Routine, Recovery (Phase I only) Given 11/16/2020 2:45 PM EDT 50 mcg gadobutrol (Gadavist) 1 MMOL/ML injection - Pyxis Override Pull 1 dose, Starting on 11/12/20 at 1705, Until 11/12/20 at 1757 Given 11/12/2020 5:57 PM EDT 10 mL Right Forearm HYDROmorphone (Dilaudid) injection 0.5 mg 0.5 mg, Intravenous, Once, 1 dose, On 11/11/20 at 1515, Routine Given 11/11/2020 3:05 PM EDT 0.5 mg HYDROmorphone (Dilaudid) injection 1 mg 1 mg, Intravenous, Once, 1 dose, On 11/10/20 at 1515, STAT Given 11/10/2020 3:48 PM EDT 1 mg HYDROmorphone (Dilaudid) injection 1 mg 1 mg, Intravenous, Once, 1 dose, On 11/10/20 at 1715, STAT Given 11/10/2020 5:15 PM EDT 1 mg HYDROmorphone (Dilaudid) injection 1 mg 1 mg, Intravenous, Every 3 hours PRN, Starting on 11/10/20 at 1837, Until 11/11/20 at 1120, Routine, severe pain, severe breakthrough pain, stop after 48h Given 11/11/2020 10:00 AM EDT 1 mg Given 11/11/2020 6:10 AM EDT 1 mg Given 11/11/2020 2:24 AM EDT 1 mg HYDROmorphone (Dilaudid) injection 1 mg 1 mg, Intravenous, Every 6 hours PRN, Starting on 11/11/20 at 1130, Until Thu11/14/20 at 1101, Routine, severe pain, severe breakthrough pain, stop after 48h Given 11/14/2020 10:40 AM EDT 1 mg Given 11/14/2020 4:14 AM EDT 1 mg Given 11/13/2020 10:19 PM EDT 1 mg HYDROmorphone (Dilaudid) injection 1 mg 1 mg, Intravenous, Once, 1 dose, On Thu11/14/20 at 2230, Routine Given 11/14/2020 10:24 PM EDT 1 mg hydrOXYzine pamoate (Vistaril) capsule 25 mg 25 mg, Oral, Every 6 hours PRN, Starting on Thu11/11/20 at 1324, Until Thu11/20/20 at 2043, Routine, anxiety Given 11/20/2020 9:49 AM EDT 25 mg Given 11/19/2020 9:03 AM EDT 25 mg Given 11/18/2020 8:50 AM EDT 25 mg lactated Ringer's bolus 1,000 mL 1,000 mL, Intravenous, Once, 1 dose, On 11/10/20 at 1835, Administer over 2 Hours, STAT New Bag 11/10/2020 7:36 PM EDT 1,000 mL 5 00 mL/hr lactated Ringer's bolus 1,000 mL 1,000 mL, Intravenous, Once, 1 dose, On [facility] 11/15/20 at 1245, Administer over 3 Hours, Routine New Bag 11/15/2020 12:45 PM EDT 1,000 mL 333.3 mL/hr lactated Ringer's infusion 100 mL/hr, Intravenous, Continuous, Starting on Thu11/10/20 at 1845, Until Thu11/12/20 at 0941, Routine New Bag 11/11/2020 9:31 PM EDT 100 mL/hr 100 mL /hr New Bag 11/10/2020 10:48 PM EDT 100 mL/hr 100 mL/hr lactated Ringer's infusion 100 mL/hr, Intravenous, Continuous, Starting on Thu11/16/20 at 1415, Until Thu11/17/20 at 0741, Routine Restarted 11/16/2020 2:15 PM EDT 100 mL/hr 100 mL/hr lactulose (Chronulac) 10 GM/15ML solution 10 g 10 g, Oral, Once, 1 dose, On Thu11/20/20 at 0215, STAT Given 11/20/2020 3:23 AM EDT 10 g lidocaine (Lidoderm) 5 % patch 2 patch 2 patch, Apply externally, Every 24 hours, First dose on Thu11/13/20 at 0945, Until Discontinued, Administer over 12 Hours, Routine Medication Applied 11/14/2020 9:33 AM EDT 2 patches Abdominal Tissue Medication Applied 11/13/2020 9:45 AM EDT 2 patches Abdominal Tissue lurasidone (Latuda) tablet 40 mg 40 mg, Oral, Daily with breakfast, First dose on Thu11/11/20 at 0800, Until Discontinued, Routine Given 11/19/2020 9:38 PM EDT 40 mg Given 11/18/2020 9:39 PM EDT 40 mg Given 11/17/2020 9:36 PM EDT 40 mg magnesium citrate 1.745 GM/30ML oral solution 17.2667 g 17.2667 g (296 mL), Oral, Once, 1 dose, On Thu11/20/20 at 1200, Routine Given 11/20/2020 12:14 PM EDT 17.2667 g melatonin tablet 3 mg 3 mg, Oral, Nightly, First dose on Thu11/18/20 at 2100, Until Discontinued, Routine Given 11/19/2020 9:39 PM EDT 3 mg Given 11/18/2020 8:19 PM EDT 3 mg methocarbamol (Robaxin) tablet 500 mg 500 mg, Oral, 3 times daily PRN, Starting on Thu11/15/20 at 1110, Until Thu11/15/20 at 1220, Routine, muscle spasms Self Administered Via Pump 11/15/2020 11:41 AM EDT 500 mg methocarbamol (Robaxin) tablet 500 mg 500 mg, Oral, 3 times daily (0600, 1200 & 1800), First dose (after last modification) on Thu11/15/20 at 1800, Until Discontinued, Routine Given 11/20/2020 12:15 PM EDT 500 mg Given 11/20/2020 6:23 AM EDT 500 mg Given 11/19/2020 12:30 PM EDT 500 mg ondansetron (Zofran) injection 4 mg 4 mg, Intravenous, Every 6 hours PRN, Starting on Thu11/15/20 at 1219, Until Thu11/19/20 at 1248, Routine, nausea, vomiting Given 11/19/2020 12:30 PM EDT 4 mg Given 11/19/2020 5:28 AM EDT 4 mg Given 11/18/2020 8:18 PM EDT 4 mg ondansetron ODT (Zofran-ODT) disintegrating tablet 4 mg 4 mg, Oral, Every 6 hours PRN, Starting on 11/18/20 at 1113, Until Thu11/20/20 at 2043, Routine, nausea, vomiting Given 11/20/2020 9:50 AM EDT 4 mg Given 11/19/2020 9:47 PM EDT 4 mg Given 11/18/2020 3:55 PM EDT 4 mg ondansetron ODT (Zofran-ODT) disintegrating tablet 8 mg 8 mg, Oral, Every 8 hours PRN, Starting on 11/10/20 at 1839, Until [place] 11/15/20 at 1219, Routine, nausea, vomiting Given 11/15/2020 8:17 AM EDT 8 mg Given 11/14/2020 2:30 PM EDT 8 mg Given 11/14/2020 10:59 AM EDT 8 mg oxyCODONE (Roxicodone) immediate release tablet 10 mg 10 mg, Oral, Every 6 hours scheduled, First dose (after last modification) on Thu11/11/20 at 1800, Until Discontinued, Routine Given 11/17/2020 11:19 AM EDT 10 mg Given 11/17/2020 4:48 AM EDT 10 mg Given 11/16/2020 11:26 PM EDT 10 mg oxyCODONE (Roxicodone) immediate release tablet 10 mg 10 mg, Oral, Every 4 hours PRN, Starting on 11/17/20 at 1246, Until Thu11/18/20 at 1113, Routine, severe pain Given 11/18/2020 10:54 AM EDT 10 mg Given 11/18/2020 6:33 AM EDT 10 mg Given 11/18/2020 1:42 AM EDT 10 mg oxyCODONE (Roxicodone) immediate release tablet 5 mg 5 mg, Oral, Every 6 hours scheduled, First dose on Thu11/11/20 at 1200, Until Discontinued, Routine Given 11/11/2020 12:41 PM EDT 5 mg oxyCODONE (Roxicodone) immediate release tablet 5 mg 5 mg, Oral, Once, 1 dose, On 11/11/20 at 1515, Routine Given 11/11/2020 3:05 PM EDT 5 mg oxyCODONE (Roxicodone) immediate release tablet 5 mg 5 mg, Oral, Every 4 hours PRN, Starting on Thu11/14/20 at 1100, Until Thu11/17/20 at 1247, Routine, severe pain Given 11/17/2020 6:50 AM EDT 5 mg Given 11/16/2020 6:20 PM EDT 5 mg Given 11/16/2020 8:57 AM EDT 5 mg oxyCODONE (Roxicodone) immediate release tablet 5 mg 5 mg, Oral, Every 4 hours PRN, Starting on Thu11/20/20 at 0904, Until Thu11/20/20 at 2043, Routine, severe pain Given 11/20/2020 3:09 PM EDT 5 mg Given 11/20/2020 9:51 AM EDT 5 mg oxyCODONE (Roxicodone) immediate release tablet 7.5 mg 7.5 mg, Oral, Every 4 hours PRN, Starting on Thu11/18/20 at 1113, Until Thu11/20/20 at 0904, Routine, severe pain Given 11/20/2020 3:30 AM EDT 7.5 mg Given 11/19/2020 9:39 PM EDT 7.5 mg Given 11/19/2020 4:39 PM EDT 7.5 mg pancrelipase (Rzm-Mros-Olij) (Creon) 6000-17908 units per capsule 1 capsule 1 capsule, Oral, 3 times daily with meals, First dose on Thu11/11/20 at 0830, Until Discontinued, Routine Given 11/20/2020 12:15 PM EDT 1 capsule Given 11/20/2020 9:48 AM EDT 1 capsule Given 11/19/2020 4:39 PM EDT 1 capsule pantoprazole (ProtoNix) EC tablet 40 mg 40 mg, Oral, 2 times daily before meals, First dose on 11/10/20 at 1845, Until Discontinued, Routine Given 11/15/2020 4:42 PM EDT 40 mg Given 11/15/2020 8:17 AM EDT 40 mg Given 11/14/2020 8:00 AM EDT 40 mg pantoprazole (ProtoNix) EC tablet 40 mg 40 mg, Oral, Daily before breakfast, First dose on Thu11/18/20 at 0730, Until Discontinued, Routine Given 11/20/2020 9:49 AM EDT 40 mg Given 11/19/2020 9:03 AM EDT 40 mg Given 11/18/2020 8:49 AM EDT 40 mg pantoprazole (ProtoNix) injection 40 mg 40 mg, Intravenous, 2 times daily, First dose (after last modification) on [facility] 11/15/20 at 2100, Until Discontinued, Routine Given 11/17/2020 8:28 AM EDT 40 mg Given 11/16/2020 9:51 PM EDT 40 mg Given 11/16/2020 8:27 AM EDT 40 mg polyethylene glycol (Miralax) packet 17 g 17 g, Oral, 2 times daily, First dose on Thu11/19/20 at 1315, Until Discontinued, Routine Given 11/20/2020 9:48 AM EDT 17 g Given 11/19/2020 4:40 PM EDT 17 g pregabalin (Lyrica) capsule 200 mg 200 mg, Oral, 2 times daily, First dose on Thu11/10/20 at 2200, Until Discontinued, Routine Given 11/13/2020 8:13 AM EDT 200 mg Given 11/12/2020 8:11 PM EDT 200 mg Given 11/12/2020 8:59 AM EDT 200 mg pregabalin (Lyrica) capsule 300 mg 300 mg, Oral, 2 times daily, First dose (after last modification) on Thu11/13/20 at 2100, Until Discontinued, Routine Given 11/20/2020 9:49 AM EDT 300 mg Given 11/19/2020 9:38 PM EDT 300 mg Given 11/19/2020 9:03 AM EDT 300 mg promethazine (Phenergan) injection 12.5 mg 12.5 mg, Intravenous, Once, 1 dose, On 11/10/20 at 1515, STAT Given 11/10/2020 3:48 PM EDT 12.5 mg promethazine (Phenergan) tablet 12.5 mg 12.5 mg, Oral, Every 4 hours PRN, Starting on Thu11/10/20 at 1838, Until Thu11/20/20 at 2043, Routine, nausea, vomiting Given 11/19/2020 4:37 PM EDT 12.5 mg Given 11/19/2020 7:33 AM EDT 12.5 mg Given 11/15/2020 12:28 PM EDT 12.5 mg senna (Senokot) tablet 17.2 mg 17.2 mg (2 tablet), Oral, Once, 1 dose, On 11/19/20 at 1315, Routine Given 11/19/2020 4:39 PM EDT 17.2 mg sodium chloride 0.9 % flush 10 mL 10 mL, Intravenous, Every 8 hours PRN, Starting on 11/10/20 at 1827, Until 11/20/20 at 2043, Routine, line care sodium chloride 0.9 % infusion 1,000 mL 1,000 mL, Intravenous, Once, 1 dose, On 11/10/20 at 1510, STAT New Bag 11/10/2020 3:47 PM EDT 1,000 mL sucralfate (Carafate) 1 GM/10ML suspension 1 g 1 g, Oral, Every 6 hours scheduled, First dose on 11/11/20 at 0000, Until Discontinued, Routine Given 11/20/2020 12:15 PM EDT 1 g Given 11/20/2020 6:23 AM EDT 1 g Given 11/20/2020 12:21 AM EDT 1 g ursodiol (Actigall) capsule 600 mg 600 mg, Oral, 2 times daily, First dose on [facility] 11/15/20 at 2100, Until Discontinued, Routine Given 11/20/2020 9:49 AM EDT 600 mg Given 11/19/2020 9:38 PM EDT 600 mg Given 11/19/2020 9:04 AM EDT 600 mg venlafaxine XR (Effoxor-XR) 24 hr capsule 150 mg 150 mg, Oral, Daily with breakfast, First dose on 11/11/20 at 0800, Until Discontinued, Routine Given 11/20/2020 9:49 AM EDT 150 mg Given 11/19/2020 9:03 AM EDT 150 mg Given 11/18/2020 8:49 AM EDT 150 mg documented in this encounter Active and Recently Administered Medications Times are shown in EDT. Scheduled Medication Order 11/18/2020 11/19/2020 11/20/2020 acetaminophen (Tylenol) tablet 650 mg 650 mg, Oral, Every 6 hours, First dose (after last modification) on Thu11/13/20 at 1015, Until Discontinued, Routine 0415 (Not Given - Provider: Bashir Tracy RN - Reason: Patient/family refused)1100 (Given - Provider: Lida Frank)1555 (Given - Provider: Lida Frank)2139 (Given - Provider: Tiffanie Kruse, CHANDNI) 0524 (Given - Provider: Tiffanie Kruse, CHANDNI)1030 (Given - Provider: Lida Frank)1640 (Given - Provider: Raiza Mauro RN - Comment: LUQ area and epigastric area as well)2139 (Given - Provider: Bashir Tracy RN) 0415 (Not Given - Provider: Bashir Tracy RN - Reason: Patient/family refused)0949 (Given - Provider: Lida Frank)1615 (Canceled Entry - Provider: Automatic Discharge Provider - Comment: Automatically canceled at discontinue of medication order) capsaicin (Zostrix-HP) 0.075 % topical cream Topical, 2 times daily, First dose on Thu11/20/20 at 1115, Until Discontinued, Routine 1214 (Given - Provid er: Lida Frank) clotrimazole (Lotrimin) 1 % cream 1 application Topical, 2 times daily, First dose on Thu11/10/20 at 2200, Until Discontinued, Routine 0900 (Given - Provider: Lida Frank)2100 (Given - Provider: Tiffanie Kruse RN) 0904 (Given - Provider: Lida Frank)2100 (Given - Provider: Bashir Tracy RN) 0900 (Given - Provider: Lida Frank) diclofenac (Voltaren) 1 % topical gel 1 application 1 application., Transdermal, 4 times daily, First dose on Thu11/13/20 at 0945, Until Discontinued, Routine 0900 (Given - Provider: Lida Frank)1400 (Given - Provider: Lida Frank)1800 (Given - Provider: Lida Frank)2200 (Given - Provider: Tiffanie Kruse, CHANDNI) 0904 (Given - Provider: Lida Frank - Comment: knees)1400 (Given - Provider: Lida Frank)1800 (Given - Provider: Lida Frank)2200 (Given - Provider: Bashir Tracy RN - Comment: bilateral) 0900 (Given - Provider: Lida Frank)1400 (Given - Provider: Lida Frank)1800 (Canceled Entry - Provider: Automatic Discharge Provider - Comment: Automatically canceled at discontinue of medication order) enoxaparin (Lovenox) syringe 30 mg 30 mg, Subcutaneous, 2 times daily, First dose on Thu11/10/20 at 2200, Until Discontinued, Routine 0850 (Given - Provider: Lida Frank)2019 (Given - Provider: Tiffanie Kruse RN) 0903 (Given - Provider: Lida Frank)213 (Given - Provider: Bashir Tracy RN) 0949 (Given - Provider: Lida Frank) lactulose (Chronulac) 10 GM/15ML solution 10 g (COMPLETED) 10 g, Oral, Once, 1 dose, On Thu11/20/20 at 0215, STAT 0323 (Given - Provid er: Bashir Tracy RN) lidocaine (Lidoderm) 5 % patch 2 patch 2 patch, Apply externally, Every 24 hours, First dose on Thu11/13/20 at 0945, Until Discontinued, Administer over 12 Hours, Routine 0945 (Not Given - Provider: Lida Frank - Reason: Patient/family refused) 0945 (Not Given - Provider: Lida Frank - Reason: Patient/family refused) 0945 (Not Given - Provider: Lida Frank - Reason: Patient/family refused) lurasidone (Latuda) tablet 40 mg 40 mg, Oral, Daily with breakfast, First dose on Thu11/11/20 at 0800, Until Discontinued, Routine 213 (Given - Provider: Tiffanie Kruse RN) 2137 (Given - Provider: Bashir Tracy RN) magnesium citrate 1.745 GM/30ML oral solution 17.2667 g (COMPLETED) 17.2667 g (296 mL), Oral, Once, 1 dose, On Thu11/20/20 at 1200, Routine 1214 (Given - Provid er: Lida Frank) melatonin tablet 3 mg 3 mg, Oral, Nightly, First dose on 11/18/20 at 2100, Until Discontinued, Routine 2019 (Given - Provider: Tiffanie Kruse, RN) 2139 (Given - Provider: Bashir Tracy, CHANDNI) methocarbamol (Robaxin) tablet 500 mg 500 mg, Oral, 3 times daily (0600, 1200 & 1800), First dose (after last modification) on Annabel 11/15/20 at 1800, Until Discontinued, Routine 0633 (Given - Provider: Bashir Tracy, CHANDNI)1215 (Given - Provider: Lida Frank)1808 (Given - Provider: Lida Frank) 0525 (Given - Provider: Tiffanie Kruse, CHANDNI)1230 (Given - Provider: Lida Frank)1800 (Not Given - Provider: Lida Frank - Reason: Patient/family refused) 0623 (Given - Provider: Bashir Tracy, CHANDNI)1215 (Given - Provider: Lida Frank)1800 (Canceled Entry - Provider: Automatic Discharge Provider - Comment: Automatically canceled at discontinue of medication order) pancrelipase (Fhk-Uymt-Xgar) (Creon) 6000-01026 units per capsule 1 capsule 1 capsule, Oral, 3 times daily with meals, First dose on 11/11/20 at 0830, Until Discontinued, Routine 0849 (Given - Provider: Lida Frank)1215 (Given - Provider: Lida Frank)1722 (Given - Provider: Lida Frank) 0903 (Given - Provider: Lida Frank)1230 (Given - Provider: Lida Frank)1639 (Given - Provider: Raiza Mauro RN) 0948 (Given - Provider: Lida Frank)1215 (Given - Provider: Lida Frank)1730 (Canceled Entry - Provider: Automatic Discharge Provider - Comment: Automatically canceled at discontinue of medication order) pantoprazole (ProtoNix) EC tablet 40 mg 40 mg, Oral, Daily before breakfast, First dose on 11/18/20 at 0730, Until Discontinued, Routine 0849 (Given - Provider: Lida Frank) 0903 (Given - Provider: Lida Frank) 0949 (Given - Provider: Lida Frank) polyethylene glycol (Miralax) packet 17 g 17 g, Oral, 2 times daily, First dose on Thu11/19/20 at 1315, Until Discontinued, Routine 1640 (Given - Provider: Raiza Mauro, CHANDNI)2100 (Not Given - Provider: Bashir Tracy, CHANDNI - Reason: Patient/family refused) 0948 (Given - Provider: Lida Frank) pregabalin (Lyrica) capsule 300 mg 300 mg, Oral, 2 times daily, First dose (after last modification) on Thu11/13/20 at 2100, Until Discontinued, Routine 0849 (Given - Provider: Lida Frank)2018 (Given - Provider: Tiffanie Kruse, CHANDNI) 0903 (Given - Provider: Lida Frank)2138 (Given - Provider: Bashir Tracy, CHANDNI) 0949 (Given - Provider: Lida Frank) senna (Senokot) tablet 17.2 mg (COMPLETED) 17.2 mg (2 tablet), Oral, Once, 1 dose, On Thu11/19/20 at 1315, Routine 1639 (Given - Provider: Raiza Mauro, CHANDNI) sucralfate (Carafate) 1 GM/10ML suspension 1 g 1 g, Oral, Every 6 hours scheduled, First dose on Thu11/11/20 at 0000, Until Discontinued, Routine 0050 (Given - Provider: Bashir Tracy RN)0633 (Given - Provider: Bashir Tracy RN)1214 (Given - Provider: Lida Frank)1808 (Given - Provider: Lida Frank) 0046 (Given - Provider: Tiffanie Kruse, CHANDNI)0525 (Given - Provider: Tiffanie Kruse, CHANDNI)1230 (Given - Provider: Lida Frank)1800 (Not Given - Provider: Lida Frank - Reason: Patient/family refused) 0021 (Given - Provider: Bashir Tracy, CHANDNI)0623 (Given - Provider: Bashir Tracy RN)1215 (Given - Provider: Lida Frank)1800 (Canceled Entry - Provider: Automatic Discharge Provider - Comment: Automatically canceled at discontinue of medication order) ursodiol (Actigall) capsule 600 mg 600 mg, Oral, 2 times daily, First dose on Annabel 11/15/20 at 2100, Until Discontinued, Routine 0849 (Given - Provider: Lida Frank)2100 (Given - Provider: Tiffanie Kruse, CHANDNI) 0904 (Given - Provider: Lida Frank)2138 (Given - Provider: Bashir Tracy RN) 0949 (Given - Provider: Lida Frank) venlafaxine XR (Effoxor-XR) 24 hr capsule 150 mg 150 mg, Oral, Daily with breakfast, First dose on 11/11/20 at 0800, Until Discontinued, Routine 0849 (Given - Provider: Lida Frank) 0903 (Given - Provider: Lida Frank) 0949 (Given - Provider: Lida Frank) PRN Medication Order 11/18/2020 11/19/2020 11/20/2020 hydrOXYzine pamoate (Vistaril) capsule 25 mg 25 mg, Oral, Every 6 hours PRN, Starting on 11/11/20 at 1324, Until Thu11/20/20 at 2043, Routine, anxiety 0850 (Given - Provider: Lida Frank) 0903 (Given - Provider: Lida Frank) 0949 (Given - Provider: Lida Frank) ondansetron (Zofran) injection 4 mg (CANCELED) 4 mg, Intravenous, Every 6 hours PRN, Starting on Annabel 11/15/20 at 1219, Until Thu11/19/20 at 1248, Routine, nausea, vomiting 0147 (Given - Provider: Bashir Tracy, CHANDNI)0850 (Given - Provider: Lida Frank)2018 (Given - Provider: Tiffanie Kruse, CHANDNI) 0528 (Given - Provider: Tiffanie Kruse, CHANDNI)1230 (Given - Provider: Lida Frank) ondansetron ODT (Zofran-ODT) disintegrating tablet 4 mg 4 mg, Oral, Every 6 hours PRN, Starting on 11/18/20 at 1113, Until Tu11/20/20 at 2043, Routine, nausea, vomiting 1555 (Given - Provider: Lida Frank) 2147 (Given - Provider: Bashir Tracy, CHANDNI) 0950 (Given - Provider: Lida Frank) oxyCODONE (Roxicodone) immediate release tablet 10 mg (CANCELED) 10 mg, Oral, Every 4 hours PRN, Starting on 11/17/20 at 1246, Until 11/18/20 at 1113, Routine, severe pain 0142 (Given - Provider: Bashir Tracy RN)0633 (Given - Provider: Bashir Tracy RN)1054 (Given - Provider: Lida Frank) oxyCODONE (Roxicodone) immediate release tablet 5 mg 5 mg, Oral, Every 4 hours PRN, Starting on 11/20/20 at 0904, Until 11/20/20 at 2043, Routine, severe pain 0951 (Given - Provider: Lida Frank)1509 (Given - Provider: Lida Frank) oxyCODONE (Roxicodone) immediate release tablet 7.5 mg (CANCELED) 7.5 mg, Oral, Every 4 hours PRN, Starting on 11/18/20 at 1113, Until 11/20/20 at 0904, Routine, severe pain 1555 (Given - Provider: Lida Frank)2018 (Given - Provider: Tiffanie Kruse RN) 0046 (Given - Provider: Tiffanie Kruse RN)0528 (Given - Provider: Tiffanie Kruse RN)0934 (Given - Provider: Lida Frank)1639 (Given - Provider: Raiza Mauro RN - Comment: LUQ area and epigastric area as well)2139 (Given - Provider: Bashir Tracy RN) 0330 (Given - Provider: Bashir Tracy RN)0820 (Not Given - Provider: Lida Frank - Reason: Other - Comment: order changed from 7.5mg to 5mg after pulling med) promethazine (Phenergan) tablet 12.5 mg 12.5 mg, Oral, Every 4 hours PRN, Starting on 11/10/20 at 1838, Until 11/20/20 at 2043, Routine, nausea, vomiting 0733 (Given - Provider: Tiffanie Kruse, CHANDNI)1637 (Given - Provider: Raiza Mauro, CHANDNI) 0819 (Not Given - Provider: Lida Frank - Reason: Other - Comment: gave zofran instead) sodium chloride 0.9 % flush 10 mL(Linked Group 1) 10 mL, Intravenous, Every 8 hours PRN, Starting on 11/10/20 at 1827, Until 11/20/20 at 2043, Routine, line care Linked Groups Order Group 1: Insert peripheral IV (COMPLETED) Once, On 11/10/20 at 1828, For 1 occurrence And Saline lock IV (COMPLETED) Once, On 11/10/20 at 1828, For 1 occurrence And sodium chloride 0.9 % flush 10 mLJump to med 10 mL, Intravenous, Every 8 hours PRN, Starting on 11/10/20 at 1827, Until Tu11/20/20 at 2043, Routine, line care documented in this encounter Additional Health Concerns Infection Onset Date Last Indicated Resolved Time Rhinovirus 11/03/2020 11/03/2020 02/03/2021 8:03 PM EST Assessment Noted Time A fall risk assessment has been complete d for the patient 10/18/2020 3:02 PM EDT documented as of this encounter Care Teams Diesel Fitter Mechanic Relationship Specialty Start Date End Date Elmo Escobar MD PCP - General 10/18/20 01/05/23 documented as of this encounter
--- OUTSIDE RECORDS SUMMARY | 2024-02-03 15:28 | XMS_ITS | Encounter Summary ---
Author Organization Healthcare Address [address] [place] [address] Care Team Providers Care Leather Skinner Name Role Phone Elmo Escobar MD Primary Care Provider Encounter Details Date Type Department Care Team (Latest Contact Info) Description 12/04/2020 3:56 PM EDT - 12/04/2020 6:57 PM EDT Hospital Encounter [facility] H Radiology [address] [place] [address] Recurrent pancreatitis Discharge Disposition: Home or Self Care [...] have Coronavirus / COVID-19? No / Unsure 12/04/2020 6:49 PM EDT documented as of this encounter Medications at Time of Discharge clotrimazole (Lotrimin) 1 % cream Apply topically 2 (two) times a day for 28 days. 12 g 1 11/06/2020 1 diclofenac (Voltaren) 1 % topical gel Place 1 application on the skin 4 (four) times a day. 50 g 11/20/2020 1 lactulose (Chronulac) 10 GM/15ML solution Take 15 mL (10 g total) by mouth 3 (three) times a day if needed (constipation). 473 mL 1 11/21/2020 1 lidocaine (Lidoderm) 5 % patch Apply 2 patches topically 1 (one) time each day at the same time. Remove & discard patch within 12 hours or as directed by MD. 60 patch 11/21/2020 1 pantoprazole (ProtoNix) 40 MG EC tablet Take 1 tablet (40 mg total) by mouth 1 (one) time each day before breakfast. Do not crush, chew, or split. 30 tablet 11/21/2020 1 polyethylene glycol (Miralax) 17 g packet Take 17 g by mouth 2 (two) times a day. 60 packet 11/20/2020 1 scopolamine (Transderm-Scop) 1 MG/3DAYS patch [address] 1 patch on the skin every 3rd (third) day. 10 patch 1 11/21/2020 1 sucralfate (Carafate) 1 GM/10ML suspension Take 10 mL (1 g total) by mouth every 6 (six) hours. 1200 mL 11/06/2020 1 ursodiol (Actigall) 300 MG capsule Take 2 capsules (600 mg total) by mouth 2 (two) times a day. 120 capsule 11/20/2020 1 hydrOXYzine pamoate (Vistaril) 25 MG capsule Take 1 capsule (25 mg total) by mouth every 6 (six) hours if needed for anxiety. 30 capsule 11/20/2020 1 Latuda 40 MG tablet Take 40 mg by mouth 1 (one) time each day with breakfast. 10/14/2020 3 melatonin 3 MG tablet Take 3 mg by mouth at night if needed for sleep. 1 methocarbamol (Robaxin) 500 MG tablet Take 500 mg by mouth 3 (three) times a day. 1 naloxone (Narcan) 4 mg/0.1 mL nasal sprayIndications :Opioid Overdose Administer 1 spray (4 mg total) into affected nostril(s) if needed for opioid reversal or respiratory depression. Call 911. Give 4 mg (1 spray) into one nostril. Repeat every 2-3 minutes as needed, alternating nostrils, until medical assistance arrives. 1 each 2 11/06/2020 1 pancrelipase, Kcm-Ttbq-Hbpu, (Creon) 59660-01961 units capsule Take 1 capsule by mouth 3 (three) times a day with meals. 1 pregabalin (Lyrica) 300 MG capsule Take 1 capsule (300 mg total) by mouth 2 (two) times a day for 3 days. 6 capsule 11/20/2020 1 venlafaxine XR (Effoxor-XR) 150 MG 24 hr capsule Take 150 mg by mouth 1 (one) time each day. 07/07/2020 3 documented as of this encounter Plan of Treatment Not on file documented as of this encounter Procedures Procedure Name Priority Date/Time Associated Diagnosis Comments FL ERC Routine 12/04/2020 3:57 PM EDT Recurrent pancreatitis documented in this encounter Results * FL ERC (12/04/2020 3:57 PM EDT) Anatomical Region Laterality Modality Bile duct Radio Fluoroscop y Impressions 12/04/2020 4:16 PM EDT Bile duct cannulation, opacification and balloon sweep performed. Please see separate procedural note by Endoscopist for additional findings and details. CRITICAL RESULT: ?? No. COMMUNICATION: Per this written report. Signed by Kellie Jerome on ??12/04/2020 4:16 PM Narrative 12/04/2020 4:16 PM EDT Exam/Procedure: FL ERC ordered by SATISH ESTEVEZ, [id number] CLINICAL INDICATION: Recurrent pancreatitis TECHNIQUE: 14 retained images from ERC performed by Physician Endoscopist. Fluoroscopy Time: 1 minute. COMPARISON: None. FINDINGS: Meat Pumper: Unremarkable Biliary Ducts: Bile duct cannulation, opacification and balloon sweep was performed. No obvious filling defects in the completion cholangiogram. Gallbladder: Status post cholecystectomy. Pancreatic Ducts: Not cannulated. Procedure Note Kellie Jerome MD - 12/04/2020 Exam/Procedure: FL ERC ordered by SATISH ESTEVEZ, [id number] CLINICAL INDICATION: Recurrent pancreatitis TECHNIQUE: 14 retained images from ERC performed by Physician Endoscopist. Fluoroscopy Time: 1 minute. COMPARISON: None. FINDINGS: Meat Pumper: Unremarkable Biliary Ducts: Bile duct cannulation, opacification and balloon sweep wasperformed. No obvious filling defects in the completion cholangiogram. Gallbladder: Status post cholecystectomy. Pancreatic Ducts: Not cannulated. IMPRESSION: Bile duct cannulation, opacification and balloon sweep performed. Please see separate procedural note by Endoscopist for additional findingsand details. CRITICAL RESULT: No. COMMUNICATION: Per this written report. Signed by Kellie Jerome on 12/04/2020 4:16 PM Satish Estevez MD IMG FLUOROSCOPY PROCEDURES Final Result documented in this encounter Visit Diagnoses Diagnosis Recurrent pancreatitis Chronic pancreatitis documented in this encounter Additional Health Concerns Infection Onset Date Last Indicated Resolved Time Rhinovirus 11/03/2020 11/03/2020 02/03/2021 8:03 PM EST Assessment Noted Time A fall risk assessment has been complete d for the patient 11/21/2020 2:30 PM EDT documented as of this encounter Care Teams Leather Skinner Relationship Specialty Start Date End Date Elmo Escobar MD PCP - General 10/18/20 01/05/23 documented as of this encounter
--- OUTSIDE RECORDS SUMMARY | 2024-02-03 15:28 | XMS_ITS | Encounter Summary ---
Author Organization [facility] Address [address] [place] [address] Care Team Providers Care Claims Agent Right Of Way Name Role Phone Elmo Escobar MD Primary Care Provider [phone] Reason for Referral * Imaging (Routine) - Closed Specialty Diagnoses / Procedures Referred By Susy t Referred To Contact Gastroenterology Diagnoses Recurrent pancreatitis Procedures ERCP w Fluoro; 1 - Grade 1 Claudio Sy PA [address] [place] [address] Phone: tel: fax: Referral ID Status Reason Start Date Expiration Date V isits Requested Visits Authorized [id number] Closed Specialty Services Required 11/21/2020 05/20/2021 1 1 * Imaging (Routine) - Closed Specialty Diagnoses / Procedures Referred By Susy burks Referred To Contact Gastroenterology Diagnoses Recurrent pancreatitis Procedures EUS (Upper) w Celiac Plexus Block, w Fluoro Claudio Sy PA [address] [place] [address] Phone: tel: fax: Referral ID Status Reason Start Date Expiration Date V isits Requested Visits Authorized [id number] Closed Specialty Services Required 11/21/2020 05/20/2021 1 1 Reason for Visit * Reason Comments Abdominal Pain * Consultation (Routine) - Closed Specialty Diagnoses / Procedures Referred By Contmary t Referred To Contact Gastroenterology Diagnoses Abdominal pain, epigastric Vivek Clarke MD [address] [place] [address] Phone: tel: fax: Referral ID Status Reason Start Date Expiration Date V isits Requested Visits Authorized [id number] Closed Specialty Services Required 11/16/2020 05/15/2021 1 1 Encounter Details Date Type Department Care Team (Late st Contact Info) Description 11/21/2020 2:00 PM EDT Office Visit [facility] Medicine Specialties [address] [place] [address] Claudio Sy PA [address] [place] [address] Recurrent pancreatitis (Primary Dx); Abdominal pain, epigastric; Other constipation Social History Tobacco Use Types Packs/Day Years [...] Sign Reading Time Taken Comments Blood Pressure 127/86 11/21/2020 2:24 PM EDT Pulse 111 11/21/2020 2:24 PM EDT Temperature 35.8 ??C (96.5 ??F) 11/21/2020 2:24 PM ED T Respiratory Rate - - Oxygen Saturation 95% 11/21/2020 2:24 PM EDT Inhaled Oxygen Concentration - - Weight 98 kg (216 lb 0.8 oz) 11/21/2020 2:24 PM EDT Height 165.1 cm (5' 5 ) 11/21/2020 2:24 PM EDT Body Mass Index 35.95 11/21/2020 2:24 PM EDT documented in this encounter Miscellaneous Notes * Progress Notes - Claudio Sy PA - 11/21/2020 2:00 PM EDT Subjective Patient ID: Lila Mcnally is a 34 y.o. female. Chief Complaint Patient presents with ??? Abdominal Pain Ms. Mcnally is a 34 year old female seen in consultation today for recurrent pancreatitis. She has a pmh significant for cholelithiasis s/p cholecystectomy in 2012, obesity, bipolar depression, anxiety, fibromyalgia, de estella choledocholithiasis s/p ERCP in april with Dr. Heller (awaiting arrival of endoscopy records). She reports that she underwent emergent cholecystectomy in 2012 after suffering infectious cholecystitis. Surgical pathology confirmed cholelithiasis. She did quite well up until around 3 years ago. At that point she experienced sudden onset epigastric/luq abdominalpain and was reportedly diagnosed with acute pancreatitis at [facility]. She wastreated conservatively and discharged. From that point on she reports intermittent flares of upper abdominal pain consistent with pancreatitis, however, much less severe. She did not seek medical treatment for this pain. In February of this year she experienced another severe flare of abdominal painwith vomiting and was admitted to [facility] where she was diagnosed with recurrent pancreatitis. She had another admission in april which resulted in ERCP and removal of de estella choledocholithiasis by Dr. Heller. We are awaiting arrival of these records. After ERCP, she reports resolution of pain for around 3 weeks. From that point until today she estimates that she has been in the [facility] ED around 20 times for recurrent abdominal pain and has been readmitted 3 or 4 times for conservative treatment. Review of available records confirms CT a/p w/o contrast from 08/06 which was essentially unremarkable. Lipase from ED visit on 09/01 was 1063 (ULN: 300). She reports constant baseline upper abdominal pain which is a 6 out of 10. Pain flares continue to occur around once weekly and at that point pain is unbearable, 10/10. Vomiting is associated with pain flares. Ondansetronhas been modestly effective, promethazine is more effective. 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 Ms. Mcnally admits totaking 800 mg ibuprofen for pain control at least once daily. She is not a drinker but does smoke 1/2 to 1 pack of cigarettes daily. She smokes marijuana 3 or 4 times per week. No family hx of pancreatitis, pancreatic cancer or cystic fibrosis. ?? Ms. Mcnally is a 34 year old female seen in follow up today for chronic abdominal pain and recurrent pancreatitis. For complete HPI from initial visit here in GI clinic please see above paragraph. Since the last visit she reports that she has continued to suffer from persistent upper abdominal pain with associated vomiting. She was admitted to for lengthy inpatient hospital stays on 2 occasions since the last office visit. The first admission occurred from 10/21 - 11/06. CMP and lipasewnl on arrival and CT a/p w/ contrast on 10/21 was unremarkable. GI was consulted and performed EGD on 10/22 which confirmed ulceration in stomach and first portion of duodenum. She was started on IV PPI. Abdominal pain was poorly controlled and the hospital team struggled with advancing her diet. Repeat CT a/p w/ contrast on 10/28 was ordered due to persistent pain but was also unremarkable. She wasreadmitted for abdominal pain from 11/10-11/20. MRCP from 11/11 documented no evidence for biliary or pancreatic stricture or acute/chronic pancreatitis. Repeat EGD on 11/16 documented healed ulcers. reports ongoing constipation which was an issue throughout both hospitalizations. Abdominal pain is present at a moderate (5/10) severity today. No vomiting in the last 24 hours. Abdominal Pain Associated symptoms include constipation, nausea and vomiting. Pertinent negatives include no diarrhea or fever. The following portions of the chart were reviewed this encounter and updated as appropriate: Tobacco Allergies Meds Problems Med Hx Surg Hx Fam Hx Review of Systems Constitutional: Positive for appetite change. Negative for chills, fever and unexpected weight change. HENT: Negative for trouble swallowing. Respiratory: Negative for shortness of breath. Cardiovascular: Negative for chest pain. Gastrointestinal: Positive for abdominal distention, abdominal pain, constipation, nausea and vomiting. Negative for diarrhea. Skin: Negative for color change and pallor. Neurological: Negative for seizures and syncope. Psychiatric/Behavioral: Negative for agitation, behavioral problems and confusion. Objective Physical Exam Vitals and nursing note [...] tenderness. There is no guarding or rebound. Skin: General: Skin is warm and dry. Coloration: Skin is not jaundiced. Neurological: Mental Status: She is alert and oriented to person, place, and time. Psychiatric: Attention and Perception: Attention and perception normal. Mood and Affect: Mood is anxious. Affect is tearful. Speech: Speech normal. MR Abdomen w and wo IV Contrast PACS Images ??Show images for MR Abdomen w and wo IV Contrast Study Result Narrative & Impression Exam/Procedure: MR ABDOMEN W AND WO IV CONTRAST ordered by VIVEK CLARKE, [id number] ?? CLINICAL INDICATION: Nausea/vomiting ?? TECHNIQUE: MR imaging of the abdomen was performed with and without intravenous contrast material using the following sequences: coronal single shot T2 weighted fast spin echo, axial T2 weighted sequences with and without fat saturation, axial dual phase gradient echo, pre and dynamic postcontrast 3-D T1 weighted gradient echo with fat saturation (axial and coronal), and axial diffusion. Heavily T2-weightedthick slab, 2D, and 3D MRCP sequences. 10 mL of Gadavist was administered. ?? COMPARISON: None. ?? FINDINGS: Gallbladder: Absent. ?? Bile Duct: Normal. No stricture, choledocholithiasis, epithelial thickening or abnormal enhancement. ?? Pancreatic Duct: Normal caliber and outline. Normal biliopancreatic junction. No pancreas divisum. ?? Pancreas: Normal signal and enhancement. No evidence of acute or chronic inflammation. No pancreatic mass. ?? Liver: Normal signal and morphology. No focal liver lesions. Patent hepatic vasculature. ?? Spleen: At the upper limits of normal in size measuring 13 cm in craniocaudal dimension. Normal signal and enhancement. No focal lesions or infarcts. ?? Adrenal Glands: Normal. ?? Kidneys: Normal. ?? Fluid Survey: No ascites. ?? Vasculature: Normal caliber and patent aorta and major visceral branches. Normal caliber and patentIVC and major abdominal venous vasculature. ?? Lymph Nodes: No adenopathy. ?? Bones: No abnormal marrow signal. ?? Other: Visualized GI tract is normal. No focal abnormalities in the lower lungs. No effusions. Redemonstration of right breast lesion, which demonstrates low T2 signal and inherent T1 shortening. ?? IMPRESSION: No acute findings in the imaged abdomen. ?? No biliary ductal dilatation. No choledocholithiasis. ?? No findings of acute pancreatitis. ?? CRITICAL RESULT: No. ?? COMMUNICATION: Per this written report. ?? Signed by Beba Bourgeois on 11/12/2020 6:49 PM Result History Diagnoses and all orders for this visit: Recurrent pancreatitis - EUS (Upper) w Celiac Plexus Block, w Fluoro; Future - ERCP w Fluoro; 1 - Grade 1; Future Abdominal pain, epigastric - Discharge Ambulatory referral to Gastroenterology Other orders - scopolamine (Transderm-Scop) 1 MG/3DAYS patch 72 hour; Place 1 patch on the skin every 3rd (third) day. - lactulose (Chronulac) 10 GM/15ML solution; Take 15 mL (10 g total) by mouth 3 (three) times a dayif needed (constipation). Chronic abdominal pain: As detailed above, Ms. Mcnally has been admitted to on two separate occasions since her last clinic visit for recurrent abdominal pain. Once from 10/21 - 11/06 and a second time from 11/10 - 11/20. EGD performed on 10/22 during the first admission revealed ulceration in stomach and duodenum. She was treated with PPI bid and struggled with control of abdominal pain/advancement of oral intake. Interestingly, serial lipase draws were wnl and CT a/p w/ contrast from 10/21 and ailed to document any significant findings, including pancreatic inflammation or scarring. Repeat EGD from 11/16, during second admission, documented complete healing of gastric/duodenal ulcers. MRCPfrom 11/11 also failed to document any intra abdominal abnormality. Once again, discharge was delayed due to inadequate control of abdominal pain and failure to advance oral intake. Review of historical records from OSH admissions confirms recurrent elevations in lipase/amylase without any imaging to confirm presence of acute pancreatitis. ERCP with Dr. Heller earlier this year with removal of biliary stone after sphincterotomy. No significant/prolonged improvement in symptoms after sphincterotomy. After discussing the case with Dr. Marino, we will proceed with EUS to further evaluate pancreatic tissue along with PD and CBD. We will reserve the right to proceed with ERCP pending findings onultrasound. Serial CMPs throughout both aforementioned admissions to were wnl. Differential for chronic abdominal pain at this point would include but is not limited to functional abdominal pain, IBS-C, cyclic vomiting and acute on chronic pancreatitis. We will initiate prn scopolamine for recurrent bouts of severe vomiting associated with abdominal pain. We advised against combining promethazi ne and scopolamine due to risk for increased sedation. She may use prn ondansetron in addition to scopolamine. Planned follow up after endoscopy to discuss results. Constipation: Ms. Mcnally reports recently worsening acute on chronic constipation. She has already failed PEG, stool softener and senna. We will initiate prn lactulose and plan to reassess symptoms atfollow up. documented in this encounter Plan of Treatment Not on file documented as of this encounter Results * ERCP w Fluoro; 1 - Grade 1 (12/04/2020 3:57 PM EDT) Anatomical Region Laterality Modality Endoscopy Narrative 12/04/2020 8:12 PM EDT Impression Overall Impression: Previous sphincterotomy Sweeping of the CBD with flow of minimal sludge, bile and contrast Regular intra- and extrahepatic ducts Recommendation Clinic visit to evaluate/treat recurrent abdominal pain There was no current indication to perform EUS-guided celiac plexus block Indication Recurrent pancreatitis recurrent abdominal pain Medications See anesthesia record for anesthesia administered medications. Staff Staff Role Obey Looney, RN Endo Nurse Satish Marino MD Proceduralist Asiya Goddard Endo Nurse Preprocedure A history and physical has been performed, and patient medication allergies have been reviewed. The patient's tolerance of previous anesthesia has been reviewed. The risks and benefits of the procedure and the sedation options and risks were discussed with the patient. All questions were answered and informed consent obtained. Details of the Procedure The patient underwent general anesthesia, which was administered by an anesthesia professional. The patient's blood pressure, heart rate, level of consciousness, oxygen and respirations were monitored throughout the procedure. The patient experienced no blood loss. The procedure was not difficult. The patient tolerated the procedure well. There were no apparent complications. After obtaining informed consent, the scope was passed under direct vision through the mouth and advanced to the duodenum. Attestation I personally performed the entire procedure Specimens No specimens were documented in this log. Findings A quality improvement specialist film of the abdomen was performed. Surgical clips were visible. An adult duodenoscope was used. ??Limited views of the esophagus, stomach and duodenum were unremarkable. ??There was evidence of a prior biliary sphincterotomy. ?? A sphincterotome preloaded with a 0.025 inch guidewire was used for biliary ductal cannulation. The guidewire was then advanced into the right intrahepatic duct. Cholangiogram showed no dilation of the intra- or extrahepatic ducts. The common bile duct and common hepatic duct were approximately 3-4 mm. A 8-15 mm stone retrieval balloon was used to sweep the CBD with flow of contrast and minimal sludge. At final occlusion cholangiogram, there no filling defects were observed. The duodenoscope was then completely withdrawn from the patient and the procedure completed. Prior to the procedure, I spent about 30 minutes reviewing the medical records and explaining the procedure to the patient. The patient had many excellent questions, which were answered satisfactorily. ?? Claudio NAJERA GI PROCEDURE ORDERABLES Final Result * EUS (Upper) w Celiac Plexus Block, w Fluoro (12/04/2020 3:57 PM EDT) Anatomical Region Laterality Modality Endoscopy Narrative 12/04/2020 7:56 PM EDT Impression Overall Impression: ENDOSCOPY FINDINGS: Normal esophagus, stomach and duodenum, as far as it could be evaluated by side-viewing echoendoscope Some foci and strands in the pancreatic parenchyma, but no other signs of chronic pancreatitis Recommendation Because of prior findings of choledocolithiasis, and because of altered LFTs, proceed to ERCP Indication Recurrent pancreatitis Recurrent abdominal pain Medications See anesthesia record for anesthesia administered medications. Staff Staff Role Obey Looney RN Endo Nurse Satish Marino MD Proceduralist Asiya Goddard Endo Nurse Preprocedure A history and physical has been performed, and patient medication allergies have been reviewed. The patient's tolerance of previous anesthesia has been reviewed. The risks and benefits of the procedure and the sedation options and risks were discussed with the patient. All questions were answered and informed consent obtained. Details of the Procedure The patient underwent general anesthesia, which was administered by an anesthesia professional. The patient's blood pressure, heart rate, level of consciousness, oxygen and respirations were monitored throughout the procedure. The scope was introduced through the mouth and advanced to the duodenum. The patient experienced no blood loss. The procedure was not difficult. The patient tolerated the procedure well. There were no apparent complications. After obtaining informed consent, the scope was passed under direct vision through the mouth and advanced to the duodenum. Attestation I personally performed the entire procedure Specimens No specimens were documented in this log. Findings ENDOSCOPIC FINDINGS: The endoscopic view was limited because the procedure was performed with a side-viewing echoendoscope. The proximal, mid and distal esophagus were normal. ??The gastroesophageal junction was characterized by a regular Z-line. ??The mucosa was endoscopically normal. ??The first portion of the duodenum was normal. ENDOSONOGRAPHIC FINDINGS: PANCREAS: There were some foci and strands, but no lobularity, dilated side branches, parenchymal calcification, irregular out border of the gland. No cysts or masses in the pancreatic parenchyma. The main pancreatic duct measured 1.5 mm in the head/neck, 1.3 mm in the body/tail. The duct wall was not echogenic. EUS features are not compatible with chronic pancreatitis. BILE DUCT: The bile duct was traced from the hilum to the ampulla. ??It measured 3 mm in diameter. ??The duct wall was thin. ??There was no echogenic material within the duct. ?? LYMPH NODES: There were no perigastric or peripancreatic nodes. LEFT ADRENAL: The left adrenal gland was normal. AORTA AND CELIAC AXIS:The visualised portion of the aorta and celiac axis were normal. LIVER: The visualised portion of the left lobe of the liver was normal. SPLEEN: The visualised portion of the spleen was normal. Prior to the procedure, I spent about 30 minutes reviewing the medical records and explaining the procedure to the patient. The patient had many excellent questions, which were answered satisfactorily. ?? us Claudio NAJERA GI PROCEDURE ORDERABLES Final Result documented in this encounter Visit Diagnoses Diagnosis Recurrent pancreatitis- Primary Chronic pancreatitis Abdominal pain, epigastric Other constipation Recurrent pancreatitis Chronic pancreatitis documented in this encounter Additional Health Concerns Infection Onset Date Last Indicated Resolved Time Rhinovirus 11/03/2020 11/03/2020 02/03/2021 8:03 PM EST Assessment Noted Time A fall risk assessment has been complete d for the patient 11/21/2020 2:30 PM EDT documented as of this encounter Care Teams Claims Agent Right Of Way Relationship Specialty Start Date End Date Elmo Escobar MD PCP - General 10/18/20 01/05/23 documented as of this encounter
--- OUTSIDE RECORDS SUMMARY | 2024-02-03 15:28 | XMS_ITS | Encounter Summary ---
Author Organization [facility] Address [address] [place] [address] Care Team Providers Care Legal Job Titles Name Role Phone Elmo Escobar MD Primary Care Provider [phone] Encounter Details Date Type Department Care Team (Late st Contact Info) Description 11/30/2020 11:30 AM EDT Pre-Admission Testing [facility] [address], [address] [place] [address] Anesthesia Record Procedure Summary Procedure Name Responsible Anesthesiologist Anesthesia Start Time Anesthesia Stop Time EUS (UPPER) Edenilson Gonzalez MD 12/04/20 1521 1 1605 Events Date Time Event Comment 12/04/2020 1519 In Room 1521 An Start 1521 An Start Data 1524 An Induction The patient was reevaluated immediately before moderate or deep sedation use and before anesthesia induction. 1525 An Intubation 1526 Anesthesia Ready 1531 Proc Start 1548 Proc Fin 1556 An Extubation 1556 an stop data 1557 Out of Room 1605 Handoff to Receiving I compl eted my handoff to the receiving clinician during which we: 1. Identified the patient 2. Identified the responsible provider 3. Reviewed the pertinent medical history 4. Discussed the surgical course 5. Reviewed intra-op anesthesia management and issues during anesthesia 6. Set expectations for post-procedure period 7. Allowed opportunity for questions and acknowledgement of understanding. 1605 An Stop Meds * Agents No agents on file. * Blood No blood administrations on file. Lines, Drains, and Airways Type Details Placement Removal Wound 12/04/20; 1451; Y; Pretibial; Right; Round, approx 3in across. Patient states it is a fungal infection; 03/20/22; 2120; Healed (not a open area-skin discoloration, states she had skin removed but it is a scar) 12/04/20 1451 by Sherrill Najera RN 03/20/222120 by Suzi Joseph RN Peripheral IV Placement Date: 11/23 04/15; Placement Time: 151; Catheter Size: 22 G; Orientation: Anterior, Left; Removal Date: 12/04/20; Removal Time: 17312/04/20 1516 by Sherrill Najera RN 12/04/20 173 by Tyler Hart RN ETT Placement Date: 11/23 04/15; Placement Time: 1525 (created via procedure documentation); Technique: Direct laryngoscopy; Type: ETT - single; Single Lumen Tube Size: 7.5 mm; Cuffed: Yes; Laryngoscope: Kami; Blade Size: 3; Location: Oral; Grade View: Grade IIa; Insertion Attempts: 1; Placement Verification: Auscultation, Capnometry; Airway Comments: Atraumatic ; Placed by: WORKPLACE REHABILITATION OFFICER; Removal Date: 12/04/20; Removal Time: 1556 12/04/20 1525 by Hosea Nixon CRNA 12/04/20 1556 by Hosea Nixon CRNA documented in this encounter Social History Tobacco [...] as of this encounter Miscellaneous Notes * Preprocedure Instructions - Elisha Dave APRN - 11/30/2020 11:30 AM EDT Current Medications Medication Instructions ??? acetaminophen (Tylenol) 325 MG tablet Take morning of surgery ??? clotrimazole (Lotrimin) 1 % cream Take as needed ??? diclofenac (Voltaren) 1 % topical gel Take as needed ??? hydrOXYzine pamoate (Vistaril) 25 MG capsule Take as needed ??? lactulose (Chronulac) 10 GM/15ML solution Hold day of surgery ??? Latuda 40 MG tablet Take morning of surgery ??? methocarbamol (Robaxin) 500 MG tablet Take as needed ??? ondansetron ODT (Zofran-ODT) 4 MG disintegrating tablet Take as needed ??? oxyCODONE (Roxicodone) 5 MG immediate release tablet Take as needed ??? pancrelipase, Mua-Kepd-Gvtf, (Creon) 88479-[address]592 units capsule Hold day of surgery ??? pantoprazole (ProtoNix) 40 MG EC tablet Take morning of surgery ??? pregabalin (Lyrica) 300 MG capsule Take morning of surgery ??? scopolamine (Transderm-Scop) 1 MG/3DAYS patch 72 hour Take as needed ??? venlafaxine XR (Effoxor-XR) 150 MG 24 hr capsule Take morning of surgery General Preoperative Instructions You will be called the business day before surgery with your arrival time Do not eat or drink anything after midnight except water with your medications unless other instructions are given No alcohol or smoking prior to surgery Arrive on time to avoid delays Parking/Registration procedure explained You MUST have a responsible adult available for transport to and from hospital Visitation policy for the day of surgery reviewed Bring insurance card, photo ID, along with power of securities attorney, guardianship or advanced directives if applicable Do not bring money, jewelry or other valuables Hibiclens bathing instructions reviewed if applicable Notify surgeon of fever, illness, any changes or if you decide not to have surgery Pediatric patients under 12 years of age (If applicable) No solid food or milk after midnight Formula 6 hours prior to arrival for surgery Breast milk 4 hours prior to arrival surgery Clear liquids 2 hours prior to arrival for surgery Diabetes Instructions (If applicable) Take diabetes medication as instructed You may have up to 4 ounces of apple juice 2 hours prior to arrival for surgery for low glucose documented in this encounter Plan of Treatment [...] documented as of this encounter Care Teams Legal Job Titles Relationship Specialty Start Date End Date lEmo Escobar MD PCP - General 10/18/20 01/05/23 documented as of this encounter
--- OUTSIDE RECORDS SUMMARY | 2024-02-03 15:28 | XMS_ITS | Encounter Summary ---
Author Organization [facility] Address [address] [place] [address] Care Team Providers Care Radiagraph Operator Name Role Phone Elmo Escobar MD Primary Care Provider [phone] Encounter Details Date Type Department Care Team ([facility] st Contact Info) Description 12/04/2020 3:21 PM EDT Anesthesia Event [facility] [address] [place] [address] Edenilson Gonzalez MD [address] [place] [address] Anesthesia Record Procedure Summary Procedure Name Responsible [...] acknowledgement of understanding. 1605 An Stop Meds Name Total propofol (Diprivan) injection 10 mg/mL 3 00 mg lidocaine 2 % 100 mg sugammadex (Bridion) injection 100 mg/mL 300 mg fentaNYL (Sublimaze) injection 50 mcg/mL 100 mcg midazolam (Versed) injection 1 mg/mL 2 m g ondansetron (Zofran) injection 2 mg/mL 4 mg lactated Ringer's infusion 0 mL * Agents Name O2 N2O Air Sevoflurane Isoflurane Desflurane Inspired Desflurane Inspired Isoflurane Inspired Sevoflurane N2O Inspired N2O * Blood No blood administrations on file. Lines, Drains, and Airways Type Details Placement Removal Wound 12/04/20; 1451; Y; Pretibial; Right; Round, approx 3in across. Patient states it is a fungal infection; 03/20/22; 2120; Healed (not a open area-skin discoloration, states she had skin removed but it is a scar) 12/04/20 145 by Sherrill Najera RN 03/20/222120 by Suzi Joseph RN Peripheral IV Placement Date: 11/23 04/15; Placement Time: 151; Catheter Size: 22 G; Orientation: Anterior, Left; Removal Date: 12/04/20; Removal Time: 17312/04/20 151 by Sherrill Najera RN 12/04/201731 by Tyler Hart RN ETT Placement Date: 11/23 04/15; Placement Time: 1525 (created via procedure documentation); Technique: Direct laryngoscopy; Type: ETT - single; Single Lumen Tube Size: 7.5 mm; Cuffed: Yes; Laryngoscope: Kami; Blade Size: 3; Location: Oral; Grade View: Grade IIa; Insertion Attempts: 1; Placement Verification: Auscultation, Capnometry; Airway Comments: Atraumatic ; Placed by: ELAINA; Removal Date: 12/04/20; Removal Time: 1556 12/04/20 [...] Coronavirus / COVID-19? No / Unsure 12/04/2020 2:14 PM EDT documented as of this encounter Miscellaneous Notes * Anesthesia Postprocedure Evaluation - Hosea Nixon CRNA - 12/04/2020 4:11 PM EDT Patient: Lila Mcnally Anesthesia Type: general Vitals Value Taken Time BP 103/75 12/04/20 1605 Temp 37.5 ??C (99.5 ??F) 12/04/20 1605 Pulse 80 12/04/20 1610 Resp 22 12/04/20 1610 SpO2 99 % 12/04/20 1610 Vitals shown include unvalidated device data. Anesthesia Post Evaluation Patient location during evaluation: PACU Patient participation: complete - patient participated Level of consciousness: awake Pain management: adequate (pain score 0-3) Airway patency: natural airway Cardiovascular status: acceptable Respiratory status: acceptable and face mask Hydration status: acceptable No complications documented. * Anesthesia Procedure Notes - Hosea Nixon CRNA - 12/04/2020 3:35 PM EDT Associated Order(s): Airway Airway Date/Time: 12/04/2020 3:25 PM Urgency: elective Airway not difficult General Information and Staff Patient location during procedure: OR COLLECTION SYSTEMS FOREMAN: Hosea Nixon CRNA Performed: COLLECTION SYSTEMS FOREMAN Indications and Patient Condition Indications for airway management: anesthesia Spontaneous Ventilation: absent Preoxygenated: yes Patient position: sniffing Final Airway Details Final airway type: endotracheal airway Successful airway: ETT Cuffed: yes Successful intubation technique: direct laryngoscopy Facilitating devices/methods: cricoid pressure and intubating stylet Endotracheal tube insertion site: oral Blade: Kami Blade size: #3 ETT size (mm): 7.5 Cormack-Lehane Classification: grade IIa - partial view of glottis Placement verified by: chest auscultation and capnometry Cuff volume (mL): 7 Measured from: teeth ETT to teeth (cm): 20 Number of attempts at approach: 1 Additional Comments Atraumatic * Anesthesia Preprocedure Evaluation - Edenilson Gonzalez MD - 11/30/2020 11:22 AM EDT Patient: Lila Mcnally Procedure Information Date/Time: 12/04/20 1530 Scheduled providers: Satish Marino MD Procedures: EUS (UPPER) ERCP Location: [facility] Relevant Problems Anesthesia last GA 6 months ago; denies hx of complications with; denies VASILIY; can lie flat Cardio denies cardiac hx and recent CP GI (+) Duodenal ulcer (+) GERD (gastroesophageal reflux disease) (controlled with med) Pulmonary denies recent URI and COVID Other (+) Abdominal pain, epigastric (+) Bipolar depression (CMS/HCC) (+) Choledocholithiasis (s/p ERCP 04/2020) (+) Good tolerance for activity (+) Recurrent pancreatitis Clinical information reviewed: NPO Status Physical Exam Airway Mallampati: III Mouth opening: normal TM distance: >3 FB Neck ROM: full Cardiovascular - normal exam Dental - normal exam Pulmonary - normal exam Neurological - normal exam Oriented: normal to time, normal to place and normal to person and oriented to person, place and time Skin - normal exam Musculoskeletal - normal exam Extremities -normal exam Anesthesia Plan ASA 2 Anesthesia technique(s) discussed with the patient/family: General Anesthesia plan agreed upon was: general Airway management planned: general endotracheal Anesthetic plan and risks discussed with patient and parent/guardian. Plan discussed with COLLECTION SYSTEMS FOREMAN. Additional Equipment Requests documented in this encounter Plan of Treatment Not on file documented as of this encounter Procedures Procedure Name Priority Date/Time Associated Diagnosis Comments PB ANESTHESIA PLACEHOLDER Routine 12/04/2020 3:25 PM EDT CO AN ELECTIVE ENDOTRACHEAL AIRWAY Routine 12/04/2020 3:25 PM EDT documented in this encounter Results * CO AN ELECTIVE ENDOTRACHEAL AIRWAY, PB ANESTHESIA PLACEHOLDER (12/04/2020 3:25 PM EDT) Narrative Hosea Nixon CRNA - 12/04/2020 3:25 PM EDT Hosea Nixon CRNA ? 12/04/2020 ??3:36 PM Airway Date/Time: 12/04/2020 3:25 PM Urgency: elective Airway not difficult General Information and Staff Patient location during procedure: OR COLLECTION SYSTEMS FOREMAN: Hosea Nixon CRNA Performed: COLLECTION SYSTEMS FOREMAN Indications and Patient Condition Indications for airway management: anesthesia Spontaneous Ventilation: absent Preoxygenated: yes Patient position: sniffing Final Airway Details Final airway type: endotracheal airway Successful airway: ETT Cuffed: yes Successful intubation technique: direct laryngoscopy Facilitating devices/methods: cricoid pressure and intubating stylet Endotracheal tube insertion site: oral Blade: Kami Blade size: #3 ETT size (mm): 7.5 Cormack-Lehane Classification: grade IIa - partial view of glottis Placement verified by: chest auscultation and capnometry Cuff volume (mL): 7 Measured from: teeth ETT to teeth (cm): 20 Number of attempts at approach: 1 Additional Comments Atraumatic us Edenilson Gonzalez MD ANESTHESIA ORDERABLES Final Re sult documented in this encounter Visit Diagnoses Not on filedocumented in this encounter Administered Medications Inactive Administered Medications - up to 3 most recent administrations Medication Order MAR Action Action Date Dose Rate Site fentaNYL (Sublimaze) injection Intravenous, As needed, Starting on Thu12/04/20 at 1524, Until Thu12/04/20 at 1605, Routine, Anesthesia Intraprocedure Given 12/04/2020 3:24 PM EDT 100 mcg lactated Ringer's infusion 100 mL/hr, Intravenous, Once, 1 dose, On 12/04/20 at 1445, Routine New Bag 12/04/2020 3:21 PM EDT lidocaine (Xylocaine) 2 % injection Infiltration, As needed, Starting on e 12/04/20 at 1524, Until 12/04/20 at 1605, Routine, Anesthesia Intraprocedure Given 12/04/2020 3:24 PM EDT 100 mg midazolam (Versed) injection Intravenous, As needed, Starting on e 12/04/20 at 1519, Until 12/04/20 at 1605, Routine, Anesthesia Intraprocedure Given 12/04/2020 3:19 PM EDT 2 mg ondansetron (Zofran) injection Intravenous, As needed, Starting on Thu12/04/20 at 1541, Until 12/04/20 at 1605, Routine, Anesthesia Intraprocedure Given 12/04/2020 3:41 PM EDT 4 mg propofol (Diprivan) injection Intravenous, As needed, Starting on Thu12/04/20 at 1524, Until 12/04/20 at 1605, Routine, Anesthesia Intraprocedure Given 12/04/2020 3:24 PM EDT 300 mg sugammadex (Bridion) 200 MG/2ML injection Intravenous, As needed, Starting on Thu12/04/20 at 1549, Until 12/04/20 at 1605, Routine, Anesthesia Intraprocedure Given 12/04/2020 3:49 PM EDT 300 mg documented in this encounter Additional Health Concerns Infection Onset Date Last Indicated Resolved Time Rhinovirus 11/03/2020 11/03/2020 02/03/2021 8:03 PM EST Assessment Noted Time A fall risk assessment has been complete d for the patient 11/21/2020 2:30 PM EDT documented as of this encounter Care Teams Radiagraph Operator Relationship Specialty Start Date End Date Elmo Escobar MD PCP - General 10/18/20 01/05/23 documented as of this encounter
--- OUTSIDE RECORDS SUMMARY | 2024-02-03 15:28 | XMS_ITS | Encounter Summary ---
Author Organization [facility] Address [address] [place] [address] Care Team Providers Care News Editor Name Role Phone Elmo Escobar MD Primary Care Provider [phone] Encounter Details Date Type Department Care Team (Latest Contact Info) Description 11/10/2020 Travel Social History Tobacco Use Types Packs/Day Years Used Date Smoking Tobacco: Every Day Cigarettes Smokeless Tobacco: Never Alcohol Use Standard Drinks/Week Comments Yes 0 (1 standard drink = 0.6 oz pure alcohol) Alcoholic Drinks/day: Minimum alcohol consumption PHQ-2 Answer Date Recorded Patient Health Questionnaire-2 Score 2 10/18/2020 Comments No Sex and Gender Information Value [...] have Coronavirus / COVID-19? No / Unsure 11/10/2020 2:28 PM EDT documented as of this encounter [...] documented as of this encounter Care Teams News Editor Relationship Specialty Start Date End Date Elmo Escobar MD PCP - General 10/18/20 01/05/23 documented as of this encounter
--- OUTSIDE RECORDS SUMMARY | 2024-02-03 15:28 | XMS_ITS | Encounter Summary ---
Author Organization Healthcare Address [address] [place] [address] Care Team Providers [employer] Worker Name Role Phone Elmo Escobar MD Primary Care Provider [phone] Reason for Visit * Reason Comments Abdominal Pain * Auth/Cert Specialty Diagnoses / Procedures Referred By Contac t Referred To Contact Diagnoses Acute on chronic pancreatitis (CMS/HCC) Intractable left upper quadrant abdominal pain Tad Soriano MBBS [address] [id number] Phone: tel: fax: [facility] S Inpatient [address] [place] [address] Phone: tel: Referral ID Status Reason Start Date Expiration Date Visits Re quested Visits Authorized [id number] 1 1 Encounter Details Date Type Department Care Team (Late st Contact Info) Description 02/03/2021 6:20 PM EST - 02/10/2021 2:33 PM EST Emergency [facility] Inpatient [address] [place] [address] Sammy Franco MD [address] [place] [address] Tad Soriano MBBS [address] [id number] Kyra, [place] C, DO Intractable left upper quadrant abdominal pain (Primary Dx); Acute on chronic pancreatitis (CMS/HCC) Discharge Disposition: Home or Self Care Social History Tobacco Use Types Packs/Day Years Used Date Smoking Tobacco: Every Day Cigarettes 0.5 15 Smokeless Tobacco: Never Tobacco Cessation:Ready to Q uit: Yes; Counseling Given: Yes Alcohol Use Standard Drinks/Week [...] Reading Time Taken Comments Blood Pressure 138/86 02/10/2021 8:06 AM EST Pulse 78 02/10/2021 8:06 AM EST Temperature 36.4 ??C (97.6 ??F) 02/10/2021 8:06 AM ES T Respiratory Rate 16 02/07/2021 3:20 PM EST Oxygen Saturation 97% 02/10/2021 8:06 AM EST Inhaled Oxygen Concentration - - Weight 102 kg (224 lb 3.3 oz) 02/04/2021 1:54 AM EST Height 166.4 cm (5' 5.51 ) 02/04/2021 1:54 AM ES T Body Mass Index 36.73 02/04/2021 1:54 AM EST documented in this encounter Medications at Time of Discharge ferrous sulfate 324 (65 Fe) MG EC tablet Take 1 tablet (324 mg total) by mouth 1 (one) time each day with breakfast. Do not crush, chew, or split. 30 tablet 3 02/11/2021 03/13/19 22 ondansetron ODT (Zofran ODT) 4 MG disintegrating tablet Take 1 tablet (4 mg total) by mouth every 8 (eight) hours if needed for nausea or vomiting for up to 7 days. 20 tablet 02/10/2021 02/18/20 21 oxyCODONE (Roxicodone) 10 MG immediate release tablet Take 1 tablet (10 mg total) by mouth every 4 (four) hours if needed (pain) for up to 3 days. 18 tablet 02/10/2021 02/14/20 21 pancrelipase, Mmg-Oocg-Gspn, (Creon) 12018-63594 units capsule Take 2 capsules by mouth 3 (three) times a day with meals. 180 capsule 3 02/10/2021 03/12/19 22 acetaminophen (Tylenol) 500 MG tablet Take 1,000 mg by mouth every 6 (six) hours if needed for mild pain. 07/25/19 23 ascorbic acid (Vitamin C) 250 MG tablet Take 1 tablet (250 mg total) by mouth 1 (one) time each day. 30 tablet 11 02/11/2021 04/24/19 22 Latuda 40 MG tablet Take 40 mg by mouth 1 (one) time each day with breakfast. 10/14/2020 03/20/19 23 naloxone (Narcan) 4 mg/0.1 mL nasal sprayIndications:Op ioid Overdose Administer 1 spray (4 mg total) into affected nostril(s) if needed for opioid reversal or respiratory depression. Call 911. Give 4 mg (1 spray) into one nostril. Repeat every 2-3 minutes as needed, alternating nostrils, until medical assistance arrives. 1 each 2 02/10/2021 05/25/19 22 pregabalin (Lyrica) 300 MG capsule Take 300 mg by mouth 2 (two) times a day. 04/25/19 22 venlafaxine XR (Effoxor-XR) 150 MG 24 hr capsule Take 150 mg by mouth 1 (one) time each day. 07/07/2020 03/20/19 23 documented as of this encounter Miscellaneous Notes * Discharge Summary - Joseph Rae DO - 02/10/2021 11:33 AM EST Hospitalization Admit Date/Time: 02/03/2021 6:20 PM Admitting Attending: Tad Soriano Discharge Date: 02/10/2021 Discharge Attending Physician: Joseph Rae Do PCP name and Address: Elmo Escobar MD [address] [facility] [place] [address] Referring provider name and address: No referring provider defined for this encounter. Chief Concern, Brief History of Present Illness, and Hospital Course Rosibel Gayle is a 35 y.o. female with a pmhx of chronic ETOH dependence (quit heavy alcohol use 7 years ago), chronic pancreatitis, fibromyalgia, depression/anxiety, history of CCY who presented 02/04for acute on chronic pancreatitis with severe epigastric pain. CT A/P in ED without acute abnormalit y, Lipase of 93, and CRP WNL. She was admitted for pain control and inability to tolerate PO. She was treated with aggressive IVF, tylenol, toradol, oxycodone and PRN dilaudid for breakthrough pain. On 02/09 pain and nausea improved to the point where she was able to tolerate oral intake well. Dilaudid was discontinued on 02/09 and patient did well on PRN oxycodone. Patient instructed to take ibup rofen for no more than 3 days given history of PUD and to always take with meals. Instructed to continue scheduling tylenol TID until pain has resolved Patient will follow up with PCP outpatient for further treatment. Patient reports that her PCP prescribed creon for her, but she was unable to pick it up and is requesting it at discharge. New Medications -Creon -zofran 4mg Q6hr -Oxycodone 10mg q4hr Surgeries and Procedures None Medication List .. acetaminophen 500 MG tablet Commonly known as: Tylenol Take 1,000 mg by mouth every 6 (six) hours if needed for mild pain. ascorbic acid 250 MG tablet Commonly known as: Vitamin C Take 1 tablet (250 mg total) by mouth 1 (one) time each day. Start taking on: February 11, 2021 ferrous sulfate 324 (65 Fe) MG EC tablet Take 1 tablet (324 mg total) by mouth 1 (one) time each day with breakfast. Do not crush, chew, or split. Start taking on: February 11, 2021 Latuda 40 MG tablet Generic drug: lurasidone TAKE 1 TABLET BY MOUTH IN THE EVENING WITH FOOD naloxone 4 mg/0.1 mL nasal spray Commonly known as: Narcan Administer 1 spray (4 mg total) into affected nostril(s) if needed for opioid reversal or respiratory depression. Call 911. Give 4 mg (1 spray) into one nostril. Repeat every 2-3 minutes as needed, alternating nostrils, until medical assistance arrives. ondansetron ODT 4 MG disintegrating tablet Commonly known as: Zofran ODT Take 1 tablet (4 mg total) by mouth every 8 (eight) hours if needed for nausea or vomiting for up to 7 days. oxyCODONE 10 MG immediate release tablet Commonly known as: Roxicodone Take 1 tablet (10 mg total) by mouth every 4 (four) hours if needed (pain) for up to 3 days. pancrelipase (Vop-Mqsy-Dvzr) [id number] units capsule Commonly known as: Creon Take 2 capsules by mouth 3 (three) times a day with meals. pregabalin 300 MG capsule Commonly known as: Lyrica Take 300 mg by mouth 2 (two) times a day. venlafaxine XR 150 MG 24 hr capsule Commonly known as: Effoxor-XR TAKE 1 CAPSULE BY MOUTH ONCE DAILY IN THE MORNING Where to Get Your Medications These medications were sent to [facility] - [place], [place] - [address] [facility] [address] [facility] [facility] [id number] ?? ascorbic acid 250 MG tablet ?? ferrous sulfate 324 (65 Fe) MG EC tablet ?? naloxone 4 mg/0.1 mL nasal spray ?? ondansetron ODT 4 MG disintegrating tablet ?? oxyCODONE 10 MG immediate release tablet ?? pancrelipase (Uly-Qgpg-Qbky) [id number] units capsule Discharge Diagnosis Medical Problems Active and Resolved Hospital Problems Hospital * (Principal) RESOLVED: Intractable left upper quadrant abdominal pain Post Discharge Instructions Return to ED for worsening pain, fevers greater than 100.4, severe nausea and vomiting Outpatient Follow-Up Future Appointments Date Time Provider Department Center 02/26/2021 3:40 PM DANIA Gunn 03/26/2021 3:00 PM DANIA Gunn Test Results Pending At Discharge None Pertinent Physical Exam At Time of Discharge Physical Exam Constitutional: Appearance: Normal appearance. She is not ill-appearing or diaphoretic. HENT: Head: Normocephalic and atraumatic. Eyes: General: No scleral icterus. Extraocular Movements: Extraocular movements intact. Cardiovascular: Rate and Rhythm: Normal rate and regular rhythm. Pulmonary: Effort: Pulmonary effort is normal. Breath sounds: Normal breath sounds. Abdominal: General: Abdomen is flat. There is distension (minimal epigastric tenderness). Palpations: Abdomen is soft. Musculoskeletal: Right lower leg: No edema. Left [...] for this discharge. * Hospital Course - Joseph Rae DO - 02/10/2021 11:29 AM EST Rosibel Gayle is a 35 y.o. female with a pmhx of chronic ETOH dependence (quit heavy alcohol use 7 years ago), chronic pancreatitis, fibromyalgia, depression/anxiety, history of CCY who presented 02/04for acute on chronic pancreatitis with severe epigastric pain. CT A/P in ED without acute abnormalit y, Lipase of 93, and CRP WNL. She was admitted for pain control and inability to tolerate PO. She was treated with aggressive IVF, tylenol, toradol, oxycodone and PRN dilaudid for breakthrough pain. On 02/09 pain and nausea improved to the point where she was able to tolerate oral intake well. Dilaudid was discontinued on 02/09 and patient did well on PRN oxycodone. Patient instructed to take ibup rofen for no more than 3 days given history of PUD and to always take with meals. Instructed to continue scheduling tylenol TID until pain has resolved Patient will follow up with PCP outpatient for further treatment. Patient reports that her PCP prescribed creon for her, but she was unable to pick it up and is requesting it at discharge. New Medications -Creon -zofran 4mg Q6hr -Oxycodone 10mg q4hr * Progress Notes - Joseph Rae, - 02/09/2021 1:36 PM EST Subjective NAEO. Patient doing well this morning and sitting up in bed. She reports that she was able to eat some dinner last night and has tolerated PO fluids well and is ready to discontinue the dilaudid and IVF. She is hoping to go home tomorrow pending continued improvement. Endorses regular BM, some residual nausea, no emesis. No fevers/chills Objective Physical Exam Constitutional: General: She is not in acute distress. Appearance: Normal appearance. She is not ill-appearing, toxic-appearing or diaphoretic. HENT: Head: Normocephalic and atraumatic. Eyes: General: No scleral icterus. Extraocular Movements: Extraocular movements intact. Cardiovascular: Rate and Rhythm: Normal rate and regular rhythm. Pulmonary: Effort: Pulmonary effort is normal. No respiratory distress. Abdominal: General: Abdomen is flat. There is no distension. Palpations: Abdomen is soft. Tenderness: There is abdominal tenderness (mild epigastric TTP ). There is no guarding. Musculoskeletal: Right lower leg: No edema. Left lower leg: No edema. Neurological: General: No focal deficit present. Mental Status: She is alert and oriented to person, place, and time. Psychiatric: Mood and Affect: Mood normal. Behavior: Behavior normal. Thought Content: Thought content normal. Judgment: Judgment normal. Last Recorded Vitals Blood pressure 140/88, pulse 98, temperature 36.7 ??C (98.1 ??F), resp. rate 16, height 1.664 m (5'5.51 ), weight 102 kg (224 lb 3.3 oz), last menstrual period 01/28/2021, SpO2 94 %, not currently . Assessment/Plan Principal Problem: Intractable left upper quadrant abdominal pain #Acute on chronic pancreatitis -patient with long standing history of multiple episodes of acute on chronic pancreatitis. Initially from alcohol then gall stone pancreatitis. Most recent episode 3 months ago. -CT abdomen and pelvis without acute process. Lipase 94 -History of CCY following gallstone pancreatitis?? PLAN -continue low fat diet. -will continue current pain regimen with toradol PRN, scheduled APAP,??PO opiates -antiemetics PRN -discontinued IV dilaudid and IVF today given improvement in symptoms ?? #Biplolar disorder -Continue??latuda, effexor ?? #Neuropathy -continue pregabalin? #Obesity -BMI of 36.7, complicates all aspects of care? Diet: Low fat, reg DVT PPX: SCD, Plov FULL CODE * Progress Notes - Joseph Rae DO - 02/08/2021 2:47 PM EST Subjective Overnight patient reported persistent nausea and vomiting that has improved this morning to the point where dry heaving has subsided. She reports that she will try to drink some clears today and hopes to be eating food by tomorrow. Requests to hold off reducing her pain medication until tomorrow due to flares of pain. No fevers, chills, CP, SOA Objective Physical Exam Constitutional: Appearance: Normal appearance. She is not diaphoretic. Cardiovascular: Rate and Rhythm: Normal rate and regular rhythm. Pulmonary: Effort: Pulmonary effort is normal. No respiratory distress. Abdominal: General: Abdomen is flat. Bowel sounds are normal. There is no distension. Musculoskeletal: Right lower leg: No edema. Left lower leg: No edema. Skin: General: Skin is warm and dry. Neurological: General: No focal deficit present. Mental Status: She is alert and oriented to person, place, and time. Psychiatric: Mood and Affect: Mood normal. Behavior: Behavior normal. Thought Content: Thought content normal. Judgment: Judgment normal. Last Recorded Vitals Blood pressure 111/70, pulse 68, temperature 36.6 ??C (97.8 ??F), temperature source Oral, resp. rate 16, height 1.664 m (5' 5.51 ), weight 102 kg (224 lb 3.3 oz), last menstrual period 01/28/2021, SpO2 98 %, not currently . Assessment/Plan Principal Problem: Intractable left upper quadrant abdominal pain #Acute on chronic pancreatitis -patient with long standing history of multiple episodes of acute on chronic pancreatitis. Initially from alcohol then gall stone pancreatitis. Most recent episode 3 months ago. -CT abdomen and pelvis without acute process. Lipase 94 -History of CCY following gallstone pancreatitis PLAN -continue low fat diet. Restarted IVF while intolerant of PO -will continue current pain regimen with toradol PRN, scheduled APAP, PO opiates and IV for breakthrough pain. Will begin to taper dilaudid tomorrow -antiemetics PRN -Will monitor patient for sedation on increased IV opiate regimen ?? #Biplolar disorder -Continue??latuda, effexor ?? #Neuropathy -continue pregabalin? #Obesity -BMI of 36.7, complicates all aspects of care? Diet: Low fat, reg DVT PPX: SCD, Plov FULL CODE * Consults - Lida Morales RD - 02/08/2021 9:08 AM EST Adult Nutrition Evaluation Note Rosibel Gayle 35 y.o. female CSN: [id number] Room/Bed 728/728A Nutrition evaluation type: screen Reason for evaluation: [place] [facility] course: 35 y/o female presented 12/ d/t sharp epigastric pain radiating to her back. Acute on chronic pancreatitis. Past medical/ surgical history: Past Medical History: Diagnosis Date ??? Anxiety ??? Arthritis ??? Depression ??? Fibromyalgia ??? GERD (gastroesophageal reflux disease) ??? Hypertension ??? Nicotine dependence ??? Obesity ??? Pancreatitis Past Surgical History: Procedure Laterality Date ??? CHOLECYSTECTOMY ??? ERCP ??? ESOPHAGOGASTRODUODENOSCOPY ??? HAND SURGERY Social history: Social History Tobacco Use ??? Smoking status: Current Every Day Smoker Packs/day: 0.50 Years: 15.00 Pack years: 7.50 Types: Cigarettes ??? Smokeless tobacco: Never Used Vaping Use ??? Vaping Use: Never used Substance Use Topics ??? Alcohol use: Not Currently Comment: Alcoholic Drinks/day: Minimum alcohol consumption ??? Drug use: Yes Frequency: 4.0 times per week Types: Marijuana Comment: daily use Additional comments: 02/08: Visited pt today. 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 She reports a poor/fair appetite since admission 2/2 nausea/vomiting. She endorses nausea and mild constipation today. Last BM 2 days ago. Pt endorses unintentional weight gain since the start of COVID - reports UBW of ~180# prior to COVID. She feels she may have lost some weight since admission d/t poor PO tolerance. Per pt request, RD provided low fat diet education for management of pancreatitis. Discussed avoiding fried foods, choosing lower fat meats, choosing low-fat/fat-free dairy and other products. Emphasized the importance of fruits, vegetables, whole grains. Encouraged pt to use food label as a guide.Provided pancreatitis nutrition therapy handout that includes foods to avoid and sample 1 day menu.Answered pt questions and provided RD name and contact information should further questions arise. Vitals and Basic Assessment: BP: 111/70 Temp: 36.6 ??C (97.8 ??F) Oxygen Therapy: None (Room air) [place] Coma Scale Score: 15 Scott Scale Score: 21 Last BM Date: 02/05/21 GI Symptoms: Nausea Skin: lesion to right anterior lower leg ; intertriginous-MASD to sternum Allergies: Reviewed, NKFA Medications: acetaminophen, 650 mg, Oral, q6h INO ascorbic acid, 250 mg, Oral, Daily enoxaparin, 30 mg, Subcutaneous, BID ferrous sulfate, 324 mg, Oral, Daily with breakfast lurasidone, 40 mg, Oral, Nightly miconazole nitrate, , Topical, BID nicotine, 1 patch, Transdermal, Daily Followed by [START ON 03/18/2021] nicotine, 1 patch, Transdermal, Daily Followed by [START ON 04/01/2021] nicotine, 1 patch, Transdermal, Daily pancrelipase (Tkh-Jdfg-Edwm), 2 capsule, Oral, TID with meals pregabalin, 300 mg, Oral, BID venlafaxine XR, 150 mg, Oral, Daily with breakfast lactated Ringer's, 150 mL/hr, Last Rate: 150 mL/hr (02/07/211999) diphenhydrAMINE, gi cocktail, HYDROmorphone, ketorolac, melatonin, ondansetron, oxyCODONE, promethazine, [COMPLETED] Insert peripheral IV AND [COMPLETED] Saline lock IV AND sodium chloride Meds were reviewed: Yes Labs: Lab Results Component Value Date WBC 3.80 02/08/2021 HGB 11.4 02/08/2021 HCT 34.9 02/08/2021 MCV 86 02/08/2021 PLT 201 02/08/2021 Lab Results Component Value Date GLUCOSE 96 02/08/2021 CALCIUM 9.0 02/08/2021 NA 137 02/08/2021 K 4.2 02/08/2021 CO2 24 02/08/2021 CL 104 02/08/2021 BUN 3 (L) 02/08/2021 CREATININE 0.54 (L) 02/08/2021 Anthropometrics: Admit Height (CM) 166.4 cm Admit Weight (KG) 104 kg Current Weight (KG) 102 kg BMI 36.73 Weight Evaluation Obese - Class II IBW (KG) 58 kg Percent IBW 176% Adjusted Weight (KG) 69 kg Weight History Per EMR: Wt Readings from Last 10 Encounters: 02/04/21 102 kg (224 lb 3.3 oz) 12/04/20 95.3 kg (210 lb) 12/04/20 99.4 kg (219 lb 2.2 oz) 11/21/20 98 kg (216 lb 0.8 oz) 11/10/20 102 kg (225 lb 12 oz) 10/21/20 90.7 kg (200 lb) 10/18/20 90.7 kg (200 lb) 10/18/20 79.8 kg (176 lb) 01/25/16 80.7 kg (178 lb) Reported UBW: Additional Comments Estimated Needs: Provided Based On Weight Used Kcal/day 1359-9611 25-30 kcal/kg Adjusted Protein/day 83-97 1.2-1.4 g/kg Adjusted Fluid/day 1 mL/kcal or per MD team Adjusted Additional Comments Current Nutrition Intake: Current Diet Order Low Fat Avg PO Intakes per RN Flowsheets 63% avg x 4 meal intakes Oral Nutrition Supplements None Diet EDU Provided Pancreatitis EDU on 02/08 Gnosticist/ Cultural Needs Ethnic needs not identified at this time Additional Comments Diet Experience and Nutrition History: Pertinent home medications: Reviewed Nutrition Focused Physical Exam: Physical exam performed on (date): 02/08/21 - visual Temples (muscles): None Clavicle (muscle): None Shoulder (muscle): None Interosseous (muscle): None Thigh (muscle): None Calf (muscle): None Orbital (fat): None Triceps (fat): None Assessment of Malnutrition: Malnutrition not suspected at this time Nutrition Problem: Increased nutrient needs (kcal, pro) related to increased biological demand as evidenced by acute on chronic pancreatitis. Status of Nutrition Diagnosis: New Nutrition Interventions and Recommendations: - Continue Low Fat diet as tolerated. - Will add Boost Breeze BID (500 kcal, 18g protein) to supplement PO intakes. - Please note that due to current supply chain issues, pt may not consistently receive supplement as ordered. This is actively working to be resolved. - Rec obtaining weight 1x/week. Nutrition Monitoring and Goals: - Will monitor PO intake, weight status, lab results, GI tolerance, and skin integrity. - Pt will tolerate >75% avg of meal intakes. - Pt will maintain weight this admission. - Blood Glucose <200mg/dl during admission Discharge Planning: RD to monitor for nutrition related discharge needs. Acuity Level: [address] * Care Plan - Ebenezer Lagos LPN - 02/07/2021 11:56 PM EST Reviewed POC * Progress Notes - Joseph Rae DO - 02/07/2021 2:54 PM EST Subjective Overnight patients abdominal pain worsened. She denies change in pain other than worsening radiation to her back. Also reports numerous episodes of nausea and vomiting associated with diaphoresis. She is unable to tolerate PO intake today Objective Physical Exam Constitutional: Appearance: She is not diaphoretic. Comments: In mild distress due to pain HENT: Head: Normocephalic and atraumatic. Eyes: General: No scleral icterus. Extraocular Movements: Extraocular movements intact. Pulmonary: Effort: Pulmonary effort is normal. No respiratory distress. Abdominal: General: Abdomen is flat. There is no distension. Musculoskeletal: General: No swelling. Skin: Coloration: Skin is not jaundiced. Findings: No rash. Neurological: General: No focal deficit present. Mental Status: She is alert and oriented to person, place, and time. Psychiatric: Mood and Affect: Mood normal. Behavior: Behavior normal. Thought Content: Thought content normal. Judgment: Judgment normal. Last Recorded Vitals Blood pressure 130/87, pulse 80, temperature 36.4 ??C (97.5 ??F), temperature source Oral, resp. rate 16, height 1.664 m (5' 5.51 ), weight 102 kg (224 lb 3.3 oz), last menstrual period 01/28/2021, SpO2 99 %, not currently . Assessment/Plan Principal Problem: Intractable left upper quadrant abdominal pain #Acute on chronic pancreatitis -patient with long standing history of multiple episodes of acute on chronic pancreatitis. Initially from alcohol then gall stone pancreatitis. Most recent episode 3 months ago. -CT abdomen and pelvis without acute process. Lipase 94 -History of CCY following gallstone pancreatitis PLAN -continue low fat diet. Restarted IVF while intolerant of PO -intensifying pain regimen with toradol PRN, scheduled APAP, increased PO PO opiates and IV for breakthrough pain -Will check CMP, CBC, and CRP in AM -antiemetics PRN -Will monitor patient for sedation on increased IV opiate regimen ?? #Biplolar disorder -Continue??latuda, effexor ?? #Neuropathy -continue pregabalin? #Obesity -BMI of 36.7, complicates all aspects of care? Diet: Low fat, reg DVT PPX: SCD FULL CODE * Progress Notes - Alexandria Jerez - 02/07/2021 11:48 AM EST Case Management Adult Progress Note Rosibel Gayle 35 y.o. female CSN: [id number] Admission: 02/03/2021 6:20 PM Primary Problem: Intractable left upper quadrant abdominal pain Additional Comments Per provider, patient is not medially ready for discharge at this time. CM will follow up. Alexandria Jerez * Progress Notes - Joseph Rae, DO - 02/06/2021 3:37 PM EST Subjective Overnight patient did well without further doses of IV opiates, but pain continued to worsen throughout the morning which required an additional dose of IV medication. She reports that she was able to eat some food for dinner, but did not eat breakfast as she does not like eggs or sausage. She denies nausea, vomiting, fevers, chills. Patient also complained for a rash which became worsen following crying, appears to be flushing Objective Physical Exam Constitutional: Appearance: Normal appearance. She is obese. HENT: Head: Normocephalic and atraumatic. Eyes: General: No scleral icterus. Extraocular Movements: Extraocular movements intact. Cardiovascular: Rate and Rhythm: Normal rate and regular rhythm. Pulmonary: Effort: Pulmonary effort is normal. No respiratory distress. Breath sounds: Normal breath sounds. Abdominal: General: Abdomen is flat. There is no distension. Palpations: Abdomen is soft. Tenderness: There is no abdominal tenderness. Musculoskeletal: General: Normal range of motion. Right lower leg: No edema. Left lower leg: No edema. Skin: General: Skin is warm and dry. Comments: Erythema on chest and face, non raised, non tender. Resolves within minutes of occurring Neurological: General: No focal deficit present. Mental Status: She is alert and oriented to person, place, and time. Psychiatric: Mood and Affect: Mood normal. Behavior: Behavior normal. Thought Content: Thought content normal. Judgment: Judgment normal. Last Recorded Vitals Blood pressure 119/82, pulse 78, temperature 36.6 ??C (97.9 ??F), temperature source Oral, resp. rate 16, height 1.664 m (5' 5.51 ), weight 102 kg (224 lb 3.3 oz), last menstrual period 01/28/2021, SpO2 94 %, not currently . Assessment/Plan Principal Problem: Intractable left upper quadrant abdominal pain #Acute on chronic pancreatitis -patient with long standing history of multiple episodes of acute on chronic pancreatitis. Initially from alcohol then gall stone pancreatitis. Most recent episode 3 months ago. -CT abdomen and pelvis without acute process. Lipase 94 PLAN -patient tolerating PO fluid intake well, low fat diet ordered -discontinued IVF following adequate resuscitation -Continue PO opiates with IV breakthrough as needed. Will monitor for sedation while receiving IV opiates -antiemetics PRN ?? #Biplolar disorder -Continue latuda, effexor ?? #Neuropathy -continue pregabalin ?? #Obesity -BMI of 36.7, complicates all aspects of care ?? Diet: Low fat, reg DVT PPX: SCD FULL CODE * Care Plan - Erik Keating - 02/05/2021 9:32 PM EST Patient progressing with plan of care. * Progress Notes - Joseph Rae DO - 02/05/2021 3:24 PM EST Physician Clarification Please review the following and provide your response below. Is there an associated diagnosis with above BMI? HIM CDI QUERY RESPONSE - BMI: Obesity Class II (BMI 35-39.9) This documentation will become part of the patient's medical record. * Progress Notes - Joseph Rae DO - 02/05/2021 3:12 PM EST Subjective NAEO. Patient doing well this morning and is requesting that she be discharged so that she can go see her children. We come to an agreement that if she is tolerating PO intake and is off IV opiates by tomorrow that she can go home. She reports some moderate, but tolerable abdominal pain, no vomiting or nausea, no fevers, chill. Urinating and voiding bowels well. Objective Physical Exam Constitutional: Appearance: Normal appearance. HENT: Head: Normocephalic and atraumatic. Mouth/Throat: Mouth: Mucous membranes are dry. Eyes: Extraocular Movements: Extraocular movements intact. Cardiovascular: Rate and Rhythm: Normal rate and regular rhythm. Pulmonary: Effort: Pulmonary effort is normal. No respiratory distress. Abdominal: General: Abdomen is flat. There is no distension. Palpations: Abdomen is soft. Tenderness: There is abdominal tenderness. There is no guarding. Neurological: General: No focal deficit present. Mental Status: She is alert and oriented to person, place, and time. Psychiatric: Mood and Affect: Mood normal. Behavior: Behavior normal. Thought Content: Thought content normal. Judgment: Judgment normal. Last Recorded Vitals Blood pressure 116/74, pulse 70, temperature 36.4 ??C (97.5 ??F), resp. rate 16, height 1.664 m (5'5.51 ), weight 102 kg (224 lb 3.3 oz), last menstrual period 01/28/2021, SpO2 93 %, not currently . Assessment/Plan Principal Problem: Intractable left upper quadrant abdominal pain #Acute on chronic pancreatitis -patient with long standing history of multiple episodes of acute on chronic pancreatitis. Initially from alcohol then gall stone pancreatitis. Most recent episode 3 months ago. -CT abdomen and pelvis without acute process. Lipase 94 PLAN -patient tolerating PO fluid intake well, low fat diet ordered -discontinued IVF following adequate resuscitation -Continue PO opiates with IV breakthrough as needed. Will monitor for sedation while receiving IV opiates -antiemetics PRN #Biplolar disorder -Continue latuda, effexor #Neuropathy -continue pregabalin #Obesity -BMI of 36.7, complicates all aspects of care ?? Diet: Low fat, reg DVT PPX: SCD FULL CODE * Progress Notes - Abraham Grossman RN - 02/04/2021 1:56 PM EST Images from the original note were not included. Wound Care Consult Visit Date: 02/04/2021?? Patient Name: Rosibel Gayle? Date of : 1985 Reason for Consult: Assess chest and right anterior lower leg Wound Assessment: Wound 12/04/20 Pretibial Right (Active) Date First Assessed/Time First Assessed: 12/04/20 1451 Present on Hospital Admission: Yes Location:Pretibial Wound Location Orientation: Right Wound Description (Comments): Round, approx 3in across.Patient states it is a fungal infection Assessments 02/04/2021 1:50 PM Wound Image Wound Assessment Pale;Blanchable erythema Margins Well-defined edges Janis-Wound Assessment Clean;Dry;Intact Shape Oval Wound Depth (cm) 0 cm Drainage Amount None Active Orders Date Order Priority Status Authorizing Provider 02/04/21 1355 Apply/Change Wound Dressing Routine Active Tad Soriano MD Wound 02/04/21 Sternum Lower (Active) Date First Assessed/Time First Assessed: 02/04/21 0130 Present on Hospital Admission: Yes Location:Sternum Wound Location Orientation: Lower Assessments 02/04/2021 1:48 PM Wound Image Wound Assessment Blanchable erythema;Other (Comment) (Maculpapular rash with satellite lesions) Margins Poorly defined Janis-Wound Assessment Clean;Dry;Intact Shape Irregular Wound Depth (cm) 0 cm Drainage Amount None Active Orders Date Order Priority Status Authorizing Provider 02/04/21 1355 Apply/Change Wound Dressing Routine Active Tad Soriano MD - Dressing Type: Other Dressings - Other: Other (Comment) - Other dressing (comment):: Critic-Aid AF Wound Team Summary Assessment: Per assessment, patient has a lesion of unknown etiology to the right anterior lower leg. Lesion isoval in shape. Lesion presents with a pale center with visible telangiectasia. Border of lesion is red and slightly raised while the skin in the center or the lesion feels thinner than surrounding skin. Patient states she's had the lesion for 2 years and that a biopsy has been performed, but so farthe cause has not been identified. Per assessment, patient has intertriginous-MASD to the sternum a/e/b pruritis, erythema and a maculopapular rash with satellite lesions consistent in appearance with a fungal infection. Surrounding skin is clean, dry and intact. Wound Team Plan: LEFT ANTERIOR LOWER LEG: Keep area clean, dry and free from pressure. STERNUM: Wash and dry area daily -->Apply Critic-Aid AF to effected area (to kill fungal infection). Critic-Aid AF is applied BID. Abraham Grossman RN 02/04/2021?? 1:56 PM * Progress Notes - Meri Alexandria N - 02/04/2021 11:08 AM EST Case Management Adult Initial Progress Note Rosibel Gayle 35 y.o. female CSN: [id number] Admission: 02/03/2021 6:20 PM Primary Problem: Intractable left upper quadrant abdominal pain Cad Drafter reviewed chart and spoke with patient and patients mother to complete this Initial Case Management Assessment. PCP: Elmo Escobar MD Emergency Contact: Extended Emergency Contact Information Primary Emergency Contact: Asiya Flores Mobile Relation: Other Insurance: Primary Visit Coverage Payer Plan Sponsor Code Group Number Group Name [facility] MEDICAID [facility] MEDICAID [id number] Primary Visit Coverage Subscriber Subscriber ID Subscriber Name Subscriber N Subscriber Address [id number] ROSIBEL GAYLE [id number] [place], [place] [address] Patient information: Primary Caregiver: (self, mother and fiance) Daily Living Activities: Functional Status: Moderate assistance Living Arrangements: Children,Family,Spouse/Significant other,Parent/Gaurdian Type of Residence: Other (Comment) (mobile home) [address] [phone] Assistive Devices: none Income Information: Income Source: Unemployed Current Resources Utilized: None Housing Circumstances-Z Codes: Housing Circumstances (select all that apply): Low Income (101-300% Federal Poverty Guidlines) - Z596 Patient's Discharge Goal: Patient/Family Anticipates Transition to: home with family Assistance Available at Discharge: Current Outpatient/Agency/Support Group: clinic(s) Availability of Care Givers (#Hours): 24 hours Discharge Transport: Transportation Anticipated: family or friend will provide Follow Up Transport: Transportation Needed to Follow up Appoinments: Family/Friend will Provide Home Health / Home Infusion / Outpatient Dialysis Services: None reported. DME: Assistive Devices: none Living Will/Advance Directive/Power of Signal Supervisor /Guardian: Unable to assess: No Have you reviewed your Advance Directive and is it valid for this stay?: Yes Advance Directive: Patient does not have advance directive Information Provided on Healthcare Directives: No Pre-existing DNR/DNI Order: No Patient Requests Assistance: No Additional Comments: Patient reported that income for the home is provided by her mother and son who both receive disability and her fiance who works at [employer]. Patient lives in the home with her fiance, children and hermother. No other current SW needs. CM will follow up. Alexandria Jerez * Care Plan - Hosea Carranza - 02/04/2021 2:34 AM EST Pt admitted today plan of care explained and accepted * H&P - Thor Tinajero MD - 02/04/2021 12:26 AM ESTAssociated Order(s): Consult to [facility] Images from the original note were not included. Consult to [facility] Consult performed by: Thor Tinajero MD Consult ordered by: DANIA Valdivia Chief Complaint: Abdominal pain History Of Present Illness Rosibel Gayle is a 35 y.o. female with a pmhx of chronic ETOH dependence (quit heavy alcohol use 7 years ago), chronic pancreatitis, fibromyalgia, depression/anxiety. The patient reports that she started developing sharp epigastric pain radiating to the back. The pain awoke her from sleep at 3 am. It was 9/10 pain score. She has had intractable nausea/vomitting. No associated hematemesis. No BRBPR/Tarry stools. She has not been able to take any PO today because of the nausea and abdominal pain. She had two episodes of loose stools today. No associated f/c/s. No known sick contacts. No soa, cp, or cough. She reports her last alcohol drink was 4 months ago. Past Medical History She has a past medical history of Anxiety, Depression, Fibromyalgia, GERD (gastroesophageal reflux disease), Hypertension, Nicotine dependence, Obesity, and Pancreatitis. Surgical History She has a past surgical history that includes Cholecystectomy; ERCP; Esophagogastroduodenoscopy; and Hand surgery. Family History Family History Problem Relation Name Age of Onset ??? Hypertension Mother ??? No Known Problems Father Social History Tobacco: 1/2 pack per day X 18 years. Alcohol drinker of 1/2 to 1 pint per day of hard liquor for which quit heavy drinking 7 years ago, last alcohol drink was 4 months ago. + marijuana use today. 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 Currently lives with her mother and three children. She has been vaccinatedfor Covid with Moderna. Occupational History none Occupational History ??? Not [...] last month? No Travel History Travel since 01/05/21 No documented travel since 01/05/21 Relevant Domestic Travel History: None Immunizations reviewed VACCINE/DOSE DATE Flu 11/21/2019 Tetanus Pneumovax Shingles Allergies Morphine and related and Tramadol Medications Current Facility-Administered Medications Medication Dose Route Frequency Provider Last Rate Last Admin ??? diphenhydrAMINE (BENADryl) tablet 25 mg 25 mg Oral q6h PRN Thor Tinajero MD ??? gi cocktail oral solution 30 mL 30 mL Oral 4x daily PRN Thor Tinajero MD ??? HYDROmorphone (Dilaudid) injection 0.25 mg 0.25 mg Intravenous q3h PRN Thor Tinajero MD ??? melatonin tablet 3 mg 3 mg Oral Nightly PRN Thor Tinajero MD ??? nicotine (Nicoderm CQ) 21 MG/24HR patch 1 patch 1 patch Transdermal Daily Thor Tinajero MD Followed by ??? [START ON 03/18/2021] nicotine (Nicoderm CQ) 14 MG/24HR patch 1 patch 1 patch Transdermal Daily Thor Tinajero MD Followed by ??? [START ON 04/01/2021] nicotine (Nicoderm CQ) 7 MG/24HR patch 1 patch 1 patch Transdermal Daily Thor Tinajero MD ??? ondansetron (Zofran) injection 4 mg 4 mg Intravenous q6h PRN Thor Tinajero MD ??? pantoprazole (Protonix) injection 40 mg 40 mg Intravenous Daily Thor Tinajero MD ??? sodium chloride 0.9 % (NS) infusion 150 mL/hr Intravenous Continuous Thor Tinajero MD ??? sodium chloride 0.9 % flush 10 mL 10 mL Intravenous q8h PRN Thor Tinajero MD Current Outpatient Medications Medication Sig Dispense Refill ??? hydrOXYzine pamoate (Vistaril) 25 MG capsule Take 1 capsule (25 mg total) by mouth every 6 (six) hours if needed for anxiety. 30 capsule 0 ??? Latuda 40 MG tablet TAKE 1 TABLET BY MOUTH IN THE EVENING WITH FOOD ??? melatonin 3 MG tablet Take 3 mg by mouth at night if needed for sleep. (Patient not taking: Reported on 11/30/2020) ??? methocarbamol (Robaxin) 500 MG tablet Take 500 mg by mouth 3 (three) times a day. ??? naloxone (Narcan) 4 mg/0.1 mL nasal spray Administer 1 spray (4 mg total) into affected nostril(s) if needed for opioid reversal or respiratory depression. Call 911. Give 4 mg (1 spray) into one nostril. Repeat every 2-3 minutes as needed, alternating nostrils, until medical assistance arrives.1 each 2 ??? pancrelipase, Qni-Krph-Vdyv, (Creon) 67726-51915 units capsule Take 1 capsule by mouth 3 (three) times a day with meals. ??? pregabalin (Lyrica) 300 MG capsule Take 1 capsule (300 mg total) by mouth 2 (two) times a day for 3 days. 6 capsule 0 ??? venlafaxine XR (Effoxor-XR) 150 MG 24 hr capsule TAKE 1 CAPSULE BY MOUTH ONCE DAILY IN THE MORNING Review of Systems Constitutional: Negative for activity change, chills and fever. HENT: Negative for congestion, ear pain, sneezing and sore throat. Respiratory: Negative for cough and chest tightness. Cardiovascular: Negative for chest pain, palpitations and leg swelling. Gastrointestinal: Positive for abdominal pain (Midepigastric abdominal pain), diarrhea (Loose stools for past 24 hours), nausea and vomiting. Negative for abdominal distention, blood in stool and constipation. Endocrine: Negative for cold intolerance and heat intolerance. Genitourinary: Negative for dysuria. Musculoskeletal: Negative for arthralgias, back pain and joint swelling. Skin: Negative for pallor and rash. Neurological: Negative for dizziness, light-headedness and headaches. Physical Exam Constitutional: Appearance: Normal appearance. She is well-developed. HENT: Head: Normocephalic and atraumatic. Right Ear: External ear normal. Left Ear: External ear normal. Nose: Nose normal. Mouth/Throat: Mouth: Mucous membranes are dry. Pharynx: Oropharynx is clear. Eyes: General: No scleral icterus. Extraocular Movements: Extraocular movements intact. Conjunctiva/sclera: Conjunctivae normal. Pupils: Pupils are equal, round, and reactive to light. Neck: Thyroid: No thyromegaly. Vascular: No JVD. Cardiovascular: Rate and Rhythm: Normal rate and regular rhythm. Pulses: Normal pulses. Heart sounds: Normal heart sounds. No murmur heard. No friction rub. No gallop. Pulmonary: Effort: Pulmonary effort is normal. No respiratory distress. Breath sounds: Normal breath sounds. No stridor. No wheezing, rhonchi or rales. Chest: Chest wall: No tenderness. Abdominal: General: Abdomen is flat. Bowel sounds are normal. There is no distension. Palpations: Abdomen is soft. There is no mass. Tenderness: There is abdominal tenderness (Mid epigastric abdominal pain). There is no guarding or rebound. Hernia: [...] normal. Last Recorded Vitals Blood pressure (!) 138/91, pulse 93, temperature 36.6 ??C (97.8 ??F), temperature source Oral, resp. rate 18, height 1.651 m (5' 5 ), weight 104 kg (228 lb 9.9 oz), SpO2 96 %. Relevant Results Labs in last 18 hours CBC WBC 6.91 Hb 11.5 Plt 219 Hct 36.5 ANC 3.69 INR ??, PTT ??, Anti-Xa ?? BMP Na 137 Cl 100 BUN 6 (L) Glu 87 K 4.3 Co2 23 Cr 0.65 Ca 8.9 iCa ?? Mg ??, Phos ?? Lactate ?? LFT AST 25 AlkPhos 90 T Prot 6.4 ALK 34 (H) Bili <0.2 (L) Alb ?? D.Bili ?? CT Abdomen Pelvis w IV Contrast [[id number]] Resulted: 02/03/212228 Order Status: Completed Updated: 02/03/212229 Narrative: ?? Exam/Procedure: CT ABDOMEN PELVIS W IV CONTRAST ordered by MERA DIEHL, [id number] CLINICAL INDICATION: Nausea and vomiting TECHNIQUE: Imaging of the abdomen and pelvis was performed, from lung bases through pubic symphysis, using spiral technique, following administration of IV contrast, Omnipaque 300, 100 mL. Delayed (excretory phase) images were performed through the kidneys. Reformatted images in the coronal and sagittal planes were generated from the axial data set to facilitate diagnostic accuracy. Total DLP (Dose-Length Product): 1054.85 mGy.cm. Please note: The reported value represents the total of one or more individual components during the CT acquisition on this date and at this time, andas such, the same value may appear in more than one CT report depending on the interpreting/reporting physicians. COMPARISON: December 04, 2020 FINDINGS: Lung Bases: The lung bases are clear. Unchanged solid tissue breast mass in the right medial subcutaneous breast tissue dating back to 2017. Liver/Gallbladder/Biliary system: The liver demonstrates homogeneous enhancement. [...] Body Wall: Normal. Bones: No acute fracture. Impression: ?? 1. Unremarkable examination of the abdomen and pelvis. Assessment/Plan Principal Problem: Intractable left upper quadrant abdominal pain 1. Acute on chronic pancreatitis -Will initiate aggressive IV fluids, keep NPO, and initiate IV pain medicines/antiemetics PRN for pain and nausea -CT abd/pelvis showed no acute process 2. Depression/anxiety -Continue home medicines once verified 3. GERD -PPI 4. DVT prophylaxis -TDS/SCD's 5. Full code Time: > 30 minutes * ED Notes - Eliseo Mir - 02/03/2021 9:19 PM EST rtnd from ct ivf restarted Eliseo Mir 02/03/212118 * ED Notes - Eliseo Mir - 02/03/2021 8:31 PM EST Pt to ct, reports dilaudid tool the pain away instantly, update to edpa Eliseo Mir 02/03/212031 * ED Notes - Eliseo Mir - 02/03/2021 7:14 PM EST Oob, ambulates to br strong steady gait and back to room Eliseo Mir 02/03/211913 * ED Provider Notes - Mera Diehl PA - 02/03/2021 6:12 PM EST Images from the original note were not included. HPI Chief Complaint Patient presents with ??? Abdominal Pain Patient is a 35-year-old female who presents to the emergency room with reports of having abdominalpain to the left upper quadrant with nausea/vomiting and diarrhea that started today. Patient reports she does have a history of chronic pancreatitis with acute exacerbations at times. Patient reports no radiating pain to the back or flank. Patient denies any urinary symptoms. No back or flank pain. Patient denies any chest pain, shortness of air, wheezing or stridor. Patient denies any blood in emesis or in stool. Patient denies any black tarry stools. Patient denies any fever chills. Patient denies any headache or visual changes. Patient denies any tinnitus. Patient denies any numbness/tingling weakness. Patient denies any other problems or complaints. 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 by: Patient intraoperative neuro tech used: No Abdominal Pain Pain location: LUQ Pain quality: aching, sharp and stabbing Pain radiates to: Does not radiate Pain severity: Moderate Onset quality: Gradual Duration: 1 day Timing: Constant Progression: Waxing and waning Chronicity: Recurrent Relieved by: Nothing Worsened by: Nothing Ineffective treatments: Position changes and not moving Associated symptoms: diarrhea, nausea and vomiting Associated symptoms: no chest pain, no constipation, no cough, no dysuria, no fatigue, no fever, nohematuria, no shortness of breath, no vaginal bleeding [...] last month? No Travel History Travel since 01/04/21 No documented travel since 01/04/21 Relevant Domestic Travel History: NA Immunization History reviewed VACCINE/DOSE DATE Flu 11/21/2019 Tetanus Pneumovax Shingles Allergies Allergen Reactions ??? Morphine And Related Other Burning ??? Tramadol Dizziness and Rash Review of Systems Review of Systems Constitutional: Negative for diaphoresis, fatigue, fever and unexpected weight change. HENT: Negative for facial swelling and trouble swallowing. Eyes: Negative for photophobia, redness and visual disturbance. Respiratory: Negative for [...] pain. Musculoskeletal: Negative for arthralgias, back pain, gait problem, joint swelling, myalgias, neck pain and neck stiffness. Skin: Negative. Neurological: Negative for dizziness, tremors, seizures, syncope, speech difficulty, weakness, light-headedness, numbness and headaches. Psychiatric/Behavioral: Negative for behavioral problems. The patient is not nervous/anxious. Physical Exam ED Triage Vitals [12/12/21 1818] Temp Heart Rate Resp BP 36.6 ??C (97.8 ??F) 93 18 (!) 138/91 SpO2 Temp Source Heart Rate Source Patient [...] Chest: Chest wall: No tenderness. Abdominal: General: Abdomen is flat. Bowel sounds [...] 2 seconds. Coloration: Skin is not cyanotic, mottled or pale. Findings: No erythema. Neurological: General: No focal deficit present. Mental Status: She is alert and oriented to person, place, and time. Cranial Nerves: No cranial nerve deficit. Motor: No weakness. Psychiatric: Mood and Affect: Mood normal. Behavior: Behavior normal. ED Course & MDM Labs Reviewed COMPREHENSIVE METABOLIC PANEL, PLASMA - Abnormal Result Value Glucose, Plasma 87 BUN, Plasma 6 (*) Creatinine, Plasma 0.65 BUN/Creatinine Ratio 9 Sodium, Plasma 137 Potassium, Plasma 4.3 Chloride, Plasma 100 CO2, Plasma 23 Anion Gap 14 Total Calcium, Plasma 8.9 Total Protein 6.4 Albumin, Plasma 3.9 AST, Plasma 25 ALT, Plasma 34 (*) Alkaline Phosphatase, Plasma 90 Total Bilirubin, Plasma <0.2 (*) eGFR >60 eGFR, if AFR/AM >60 LIPASE, PLASMA - Abnormal Lipase, Plasma 94 (*) CBC WITH AUTO DIFFERENTIAL - Abnormal WBC Count 6.91 RBC Count 4.14 HGB 11.5 HCT 36.5 Platelet Count 219 MCV 88 MCH 27.8 MCHC 31.5 RDW 14.5 MPV 10.1 nRBC 0.0 Differential Type Automated Neutrophils % 54.0 Lymphocytes % 39.0 Monocytes % 5.0 Eosinophils % 0.0 Basophils % 1.0 Immature Granulocytes % 1.0 Neutrophils Absolute 3.69 Lymphocytes Absolute 2.72 Monocytes Absolute 0.36 Eosinophils Absolute 0.01 Basophils Absolute 0.06 Immature Granulocytes Absolute 0.07 (*) Narrative: Therapeutic decision making should be based on absolute values, rather than percentages. SARS COV2 COVID 19/INFLUENZA A, B - [...] clinical signs and symptoms consistent with COVID-19. LACTATE, VENOUS - Normal Lactate, Venous, Whole Blood 2.0 TEST QUALITATIVE PLASMA - Normal Test Negative Narrative: Reference Range: Males and non- females: Negative. URINALYSIS WITH REFLEX MICROSCOPIC Color, Urine Yellow Clarity, Urine Clear Spec Larue, Urine 1.019 pH, Urine 6.5 Protein, Urine Negative Glucose, Urine Negative Ketones, Urine Negative Blood, Urine Negative Bilirubin, Urine Negative Urobilinogen, Urine 0.2 Leukocytes, Urine Negative Nitrite, Urine Negative CT Abdomen Pelvis w IV Contrast Final Result 1. Unremarkable examination of the abdomen and pelvis. CRITICAL RESULT: No. COMMUNICATION: Per this written report. Signed by Clif Barakat on 02/03/2021 10:29 PM ED Course as of 02/03/21 2340 Sun Feb 03, [id number] Patient's lipase is elevated at 94. Patient's hCG negative. Patient with a CBC completed with no significant or critical findings. Patient with a CMP completed with no significant or critical findings. The patient's lactate is normal. Patient with a COVID swab and influenza swab completed withboth being negative. Patient with a UA completed with no significant or critical findings. 2335 CT Abdomen Pelvis w IV Contrast IMPRESSION: 1. Unremarkable examination of the abdomen and pelvis. Clinical Impressions as of 02/03/212339 Intractable left upper quadrant abdominal pain Acute on chronic pancreatitis (CMS/HCC) MDM Number of Diagnoses or Management Options Acute on chronic pancreatitis (CMS/HCC) Intractable left upper quadrant abdominal pain Diagnosis management comments: Patient is a 35-year-old female who presents to the emergency room with reports of having abdominal pain to the left upper quadrant with nausea/vomiting and diarrhea that started today. Patient reports she does have a history of chronic pancreatitis with acute exacerbations at times. Patient was given 1000 milliliters normal saline. Patient was given fentanyl/dilaudid for pain and Zofran for nausea. Patient reports that she has had dilaudid in the past with no allergic reactions and no adverse effects in the past. Patient was given Protonix. Patient did have labs completed: Patient's lipase is elevated at 94. Patient's hCG negative. Patient with a CBC completed with no significant or critical findings. Patient with a CMP completed with no significant or critical findings. The patient's lactate is normal. Patient with a COVID swab and influenza swab completed with both being negative. Patient with a UA completed with no significant or critical findings. Patient with a CT scan to abdomen and pelvis completed with no acute findings per Radiology. Did discu ss with patient concerning lab results and CT scan abdomen and pelvis. Patient reports that her pain has slightly improved from arrival but is still persistent. Did discuss with my attending Dr. Franco with recommending with patient still having persistent pain to look at admitting patient for i ntractable abdominal pain and due to elevation with her lipase look at admitting with acute exacerbation of chronic pancreatitis. Did follow-up with patient and discuss with patient concerning admission with patient verbalizing understanding and agreeable with admission. Patient with no further questions did speak with Internal Medicine with Internal Medicine following with patient in the ED for f urther evaluation with recommending patient to be admitted to their services for further treatment evaluation. Patient was admitted to Internal Medicine. patient in the ED has been nontoxic appearingwith being afebrile. Amount and/or Complexity of Data Reviewed Clinical lab tests: ordered and reviewed Tests in the radiology section of CPT??: ordered and reviewed Decide to obtain previous medical records or to obtain history from someone other than the patient:yes Patient Progress Patient progress: stable DANIA Valdivia 02/03/21 [id number] Cosigned by Sammy Franco MD at 02/04/2021 12:06 AM EST Associated attestation - Sammy Franco MD - 02/04/2021 12:06 AM EST Sammy Beal MD, have personally seen and examined the patient independently, reviewed the AJAY???s Hx, exam, and MDM and agree with the assessment and plan as written. * ED Triage Notes - Hetal Donovan RN - 02/03/2021 6:12 PM EST Patient c/o severe abdominal pain with n/v/d since this morning. Patient has a hx of chronic pancreatitis. documented in this encounter Plan of Treatment Not on file documented as of this encounter Procedures Procedure Name Priority Date/Time Associated Diagnosis Comments COMPREHENSIVE METABOLIC PANEL, PLASMA Pending Discharge 02/09/2021 1:22 AM EST CBC W/O DIFFERENTIAL Routine 02/08/2021 5:37 AM EST C-REACTIVE PROTEIN, PLASMA Routine 02/08/2021 5:37 AM EST COMPREHENSIVE METABOLIC PANEL, PLASMA Routine 02/08/2021 5:37 AM EST BASIC METABOLIC PANEL, PLASMA Routine 02/06/2021 3:12 AM EST IRON & TOTAL IRON BINDING CAPACITY, PLASMA (INCLUDES TRANSFERRIN) Routine 02/05/2021 2:40 AM EST CBC WITH AUTO DIFFERENTIAL Routine 02/05/2021 2:40 AM EST TSH Routine 02/05/2021 2:40 AM EST PHOSPHORUS, PLASMA Routine 02/05/2021 2: 40 AM EST MAGNESIUM, PLASMA Routine 02/05/2021 2:4 0 AM EST FOLATE, SERUM Routine 02/05/2021 2:40 AM EST FERRITIN, SERUM Routine 02/05/2021 2:40 AM EST VITAMIN B12, SERUM Routine 02/05/2021 2: 40 AM EST LIPID PROFILE, PLASMA Routine 02/05/2021 2:40 AM EST COMPREHENSIVE METABOLIC PANEL, PLASMA Routine 02/05/2021 2:40 AM EST POCT GLUCOSE METER UNSOLICITED RESULTS Routine 02/04/2021 6:02 AM EST WOUND OSTOMY EVAL AND TREAT Routine 02/04/2021 2:47 AM EST DRUG ABUSE SCREEN, URINE STAT 02/04/2021 12:33 AM EST [facility] URINE CONFIRM STAT 02/04/2021 12: [address] ABDOMEN PELVIS W IV CONTRAST STAT 02/03/2021 8:45 PM EST LACTATE, VENOUS STAT 02/03/2021 7:04 PM EST CBC WITH AUTO DIFFERENTIAL STAT 02/03/2021 7:04 PM EST TEST QUALITATIVE PLASMA STAT 02/03/2021 7:04 PM EST LIPASE, PLASMA STAT 02/03/2021 7:04 PM EST COMPREHENSIVE METABOLIC PANEL, PLASMA STAT 02/03/2021 7:04 PM EST SARS COV2 COVID 19/INFLUENZA A, B STAT 02/03/2021 6:49 PM EST URINALYSIS WITH REFLEX MICROSCOPIC STAT 02/03/2021 6:47 PM EST documented in this encounter Results * (ABNORMAL) Comprehensive metabolic panel (02/09/2021 1:22 AM EST) Glucose, Plasma 97 74 - 99 mg/dL 02/09/2021 2:57 AM EST [facility] BUN, Plasma 4(L) 7 - 21 mg/dL 02/09/2021 2:57 AM EST [facility] Creatinine, Plasma 0.50(L) 0.60 - 1.10 mg/dL 02/09/2021 2:57 AM EST [facility] BUN/Creatinine Ratio 8 02/09/2021 2:57 AM EST [facility] Sodium, Plasma 139 136 - 145 mmol/L 02/09/2021 2:57 AM EST [facility] Potassium, Plasma 4.0 3.7 - 4.8 mmol/L 02/09/2021 2:57 AM EST [facility] Chloride, Plasma 103 97 - 107 mmol/L 02/09/2021 2:57 AM EST [facility] CO2, Plasma 26 22 - 29 mmol/L 02/09/2021 2:57 AM EST [facility] Anion Gap 10 6 - 16 mmol/L 02/09/2021 2:57 AM EST [facility] Total Calcium, Plasma 9.1 8.9 - 10.2 mg/dL 02/09/2021 2:57 AM EST [facility] Total Protein 6.1(L) 6.3 - 7.9 g/dL 02/09/2021 2:57 AM EST [facility] Albumin, Plasma 3.6 3.5 - 5.2 g/dL 02/09/2021 2:57 AM EST [facility] AST, Plasma 50(H) 11 - 32 U/L 02/09/2021 2:57 AM EST [facility] ALT, Plasma 71(H) 8 - 33 U/L 02/09/2021 2:57 AM EST [facility] Alkaline Phosphatase, Plasma 93 35 - 104 U/L 02/09/2021 2:57 AM EST [facility] Total Bilirubin, Plasma 0.2 0.2 - 1.1 mg/dL 02/09/2021 2:57 AM EST [facility] eGFR >60 >60 mL/min/1.7 3m*2 02/09/2021 2:57 AM EST [facility] Comment:eGFR = estimated GFR ; eGFR units = mL/min/1.73 sq meters Chronic Kidney Disease is considered if eGFR <60 mL/min/1.73 sq meters Kidney failure is considered if eGFR is <15 mL/min/1.73 sq meters. eGFR assumes steady state plasma creatinine concentration; not applicable if renal function is rapidly changing or patient is on dialysis. eGFR, if AFR/AM >60 >60 mL/min/1.7 3m*2 02/09/2021 2:57 AM EST [facility] Comment:eGFR = estimated GFR [...] blood specimen / Unknown Venipuncture / Unknown 02/09/2021 1:22 AM EST 02/09/2021 2:27 AM EST us Joseph Rae DO LAB BLOOD ORDERABLES Final Re sult [facility] [address] [place] [address] * (ABNORMAL) Comprehensive metabolic panel (02/08/2021 5:37 AM EST) Glucose, Plasma 96 74 - 99 mg/dL 02/08/2021 5:59 AM EST [facility] BUN, Plasma 3(L) 7 - 21 mg/dL 02/08/2021 5:59 AM EST [facility] Creatinine, Plasma 0.54(L) 0.60 - 1.10 mg/dL 02/08/2021 5:59 AM EST [facility] BUN/Creatinine Ratio 6 02/08/2021 5:59 AM EST [facility] Sodium, Plasma 137 136 - 145 mmol/L 02/08/2021 5:59 AM EST [facility] Potassium, Plasma 4.2 3.7 - 4.8 mmol/L 02/08/2021 5:59 AM EST [facility] Chloride, Plasma 104 97 - 107 mmol/L 02/08/2021 5:59 AM EST [facility] CO2, Plasma 24 22 - 29 mmol/L 02/08/2021 5:59 AM EST [facility] Anion Gap 9 6 - 16 mmol/L 02/08/2021 5:59 AM EST [facility] Total Calcium, Plasma 9.0 8.9 - 10.2 mg/dL 02/08/2021 5:59 AM EST [facility] Total Protein 6.1(L) 6.3 - 7.9 g/dL 02/08/2021 5:59 AM EST [facility] Albumin, Plasma 3.6 3.5 - 5.2 g/dL 02/08/2021 5:59 AM EST [facility] AST, Plasma 58(H) 11 - 32 U/L 02/08/2021 5:59 AM EST [facility] ALT, Plasma 72(H) 8 - 33 U/L 02/08/2021 5:59 AM EST [facility] Alkaline Phosphatase, Plasma 95 35 - 104 U/L 02/08/2021 5:59 AM EST [facility] Total Bilirubin, Plasma 0.3 0.2 - 1.1 mg/dL 02/08/2021 5:59 AM EST [facility] eGFR >60 >60 mL/min/1.7 3m*2 02/08/2021 5:59 AM EST [facility] Comment:eGFR = estimated GFR ; eGFR units = mL/min/1.73 sq meters Chronic Kidney Disease is considered if eGFR <60 mL/min/1.73 sq meters Kidney failure is considered if eGFR is <15 mL/min/1.73 sq meters. eGFR assumes steady state plasma creatinine concentration; not applicable if renal function is rapidly changing or patient is on dialysis. eGFR, if AFR/AM >60 >60 mL/min/1.7 3m*2 02/08/2021 5:59 AM EST [facility] Comment:eGFR = estimated GFR ; eGFR units = mL/min/1.73 sq meters Chronic Kidney Disease is considered if eGFR <60 mL/min/1.73 sq meters Kidney failure is considered if eGFR is <15 mL/min/1.73 sq meters. eGFR assumes steady state plasma creatinine concentration; not applicable if renal function is rapidly changing or patient is on dialysis. Blood Venous blood specimen / Unknown Venipuncture / Unknown 02/08/2021 5:37 AM EST 02/08/2021 5:40 AM EST us Joseph Rae DO LAB BLOOD ORDERABLES Final Re sult [facility] [address] [place] [address] * CBC W/O Differential (02/08/2021 5:37 AM EST) WBC Count 3.80 3.70 - 10.30 10*3/uL LAB HEMATOLOGY METHOD 02/08/2021 5:42 AM EST [facility] RBC Count 4.08 3.90 - 5.20 10*6/uL LAB HEMATOLOGY METHOD 02/08/2021 5:42 AM EST [facility] HGB 11.4 11.2 - 15.7 g/dL LAB HEMATOLOGY METHOD 02/08/2021 5:42 AM EST [facility] HCT 34.9 34.0 - 45.0 % LAB HEMATOLOGY METHOD 02/08/2021 5:42 AM EST [facility] Platelet Count 201 155 - 369 10*3/uL LAB HEMATOLOGY METHOD 02/08/2021 5:42 AM EST [facility] MCV 86 79 - 98 fL LAB HEMATOLOGY METHOD 02/08/2021 5:42 AM EST [facility] MCH 27.9 26.0 - 32.0 pg LAB HEMATOLOGY METHOD 02/08/2021 5:42 AM EST [facility] MCHC 32.7 30.7 - 35.5 g/dL LAB HEMATOLOGY METHOD 02/08/2021 5:42 AM EST [facility] RDW 13.7 11.5 - 14.5 % LAB HEMATOLOGY METHOD 02/08/2021 5:42 AM EST [facility] MPV 9.8 8.8 - 12.5 fL LAB HEMATOLOGY METHOD 02/08/2021 5:42 AM EST [facility] nRBC 0.0 <=0.0 per 100 WBCs LAB HEMATOLOGY METHOD 02/08/2021 5:42 AM EST [facility] Blood Venous blood specimen / Unknown Venipuncture / Unknown 02/08/2021 5:37 AM EST 02/08/2021 5:40 AM EST Joseph Rae LAB BLOOD ORDERABLES Final Re sult Performing Organization Address [facility] Co de Phone Number [facility] [address] [place] [address] * C-reactive protein (02/08/2021 5:37 AM EST) CRP, Plasma <3.0 <=8.0 mg/L 02/08/2021 5:59 AM EST [facility] Blood Venous blood specimen / Unknown Venipuncture / Unknown 02/08/2021 5:37 AM EST 02/08/2021 5:40 AM EST Narrative [facility] - 02/08/2021 5:59 AM EST This CRP test is appropriate for assessment of infection, systemic inflammation and/or tissue injury. To assess cardiovascular disease risk order high sensitivity CRP (CRPH). us Joseph Rae DO LAB BLOOD ORDERABLES Final Re sult Performing Organization Address City/[facility] Co de Phone Number [facility] [address] [place] [address] * (ABNORMAL) Basic metabolic panel (02/06/2021 3:12 AM EST) Glucose, Plasma 96 74 - 99 mg/dL 02/06/2021 3:53 AM EST [facility] BUN, Plasma 4(L) 7 - 21 mg/dL 02/06/2021 3:53 AM EST [facility] Creatinine, Plasma 0.68 0.60 - 1.10 mg/dL 02/06/2021 3:53 AM EST [facility] BUN/Creatinine Ratio 6 02/06/2021 3:53 AM EST [facility] Sodium, Plasma 140 136 - 145 mmol/L 02/06/2021 3:53 AM EST [facility] Potassium, Plasma 4.2 3.7 - 4.8 mmol/L 02/06/2021 3:53 AM EST [facility] Chloride, Plasma 102 97 - 107 mmol/L 02/06/2021 3:53 AM EST [facility] CO2, Plasma 28 22 - 29 mmol/L 02/06/2021 3:53 AM EST [facility] Anion Gap 10 6 - 16 mmol/L 02/06/2021 3:53 AM EST [facility] Total Calcium, Plasma 9.4 8.9 - 10.2 mg/dL 02/06/2021 3:53 AM EST [facility] eGFR >60 >60 mL/min/1.7 3m*2 02/06/2021 3:53 AM [facility] Comment:eGFR = estimated GFR ; eGFR units = mL/min/1.73 sq meters Chronic Kidney Disease is considered if eGFR <60 mL/min/1.73 sq meters Kidney failure is considered if eGFR is <15 mL/min/1.73 sq meters. eGFR assumes steady state plasma creatinine concentration; not applicable if renal function is rapidly changing or patient is on dialysis. eGFR, if AFR/AM >60 >60 mL/min/1.7 3m*2 02/06/2021 3:53 AM EST [facility] Comment:eGFR = estimated GFR [...] blood specimen / Unknown Venipuncture / Unknown 02/06/2021 3:12 AM EST 02/06/2021 3:18 AM EST Joseph Rae DO LAB BLOOD ORDERABLES Final Re sult Performing Organization Address City/[facility] Co de Phone Number [facility] [address] [place] [address] * (ABNORMAL) Iron and TIBC (02/05/2021 2:40 AM EST) Iron, Plasma 34 30 - 160 ug/dL 02/05/2021 4:02 AM EST [facility] Transferrin, Plasma 277 200 - 360 mg/dL 02/05/2021 4:02 AM EST [facility] Total Iron Binding Capacity, Plasma 346 240 - 450 ug/mL 02/05/2021 4:02 AM EST [facility] Transferrin Saturation 10(L) 14 - 50 % 02/05/2021 4:02 AM EST [facility] Blood Venous blood specimen / Unknown 02/05/2021 2:40 AM EST 02/05/2021 3:02 AM EST Thor Tinajero MD LAB BLOOD ORDERABLES Final Re sult Performing Organization Address City/[facility] Co de Phone Number [facility] [address] [place] [address] * Folate (02/05/2021 2:40 AM EST) Folate, Serum 13.3 >4.8 ng/mL 02/05/2021 4:15 AM EST [facility] Blood Venous blood specimen / Unknown 02/05/2021 2:40 AM EST 02/05/2021 3:03 AM EST us Thor Tinajero MD LAB BLOOD ORDERABLES Final Re sult Performing Organization Address City/[facility] Co de Phone Number [facility] [address] [place] [address] * (ABNORMAL) Ferritin (02/05/2021 2:40 AM EST) Ferritin, Serum 9(L) 13 - 150 ng/mL 02/05/2021 4:14 AM EST [facility] Blood Venous blood specimen / Unknown 02/05/2021 2:40 AM EST 02/05/2021 3:02 AM EST us Thor Tinajero MD LAB BLOOD ORDERABLES Final Re sult Performing Organization Address [facility] Co de Phone Number [facility] [address] [place] [address] * Vitamin B12 (02/05/2021 2:40 AM EST) Vitamin B12, Serum 436 210-1,033 pg/mL 02/05/2021 4:14 AM EST [facility] Blood Venous blood specimen / Unknown 02/05/2021 2:40 AM EST 02/05/2021 3:02 AM EST us Thor Tinajero MD LAB BLOOD ORDERABLES Final Re sult Performing Organization Address [facility] Phone Number [facility] [address] [place] [address] * (ABNORMAL) TSH (02/05/2021 2:40 AM EST) Thyroid Stimulating Hormone, Plasma 5.21(H) 0.40 - 4.20 uIU/mL 02/05/2021 3:39 AM EST [facility] Blood Venous blood specimen / Unknown 02/05/2021 2:40 AM EST 02/05/2021 3:02 AM EST Narrative [facility] - 02/05/2021 3:39 AM EST Trimester Specific Ranges ?TSH (??IU/mL) 1st Trimester ??0.1 ??- 3.0 2nd Trimester ??0.19 - 4.06 3rd Trimester ??0.3 ??- 3.7 us Thor Tinajero MD LAB BLOOD ORDERABLES Final Re sult Performing Organization Address [facility] de Phone Number [facility] [address] [place] [address] * (ABNORMAL) Lipid panel (02/05/2021 2:40 AM EST) Cholesterol, Plasma 216(H) <200 mg/dL 02/05/2021 3:39 AM EST [facility] Comment: Cholesterol Reference Range (age >17 years): Desirable? <200 mg/dL Borderline? 200 to 239 mg/dL Undesirable? >239 mg/dL HDL 43(L) >=50 mg/dL 02/05/2021 3:39 AM EST [facility] Comment: HDL Cholesterol Reference Ranges (age >17 years): Female, acceptable? > or = 50 mg/dL Male, acceptable? > or = 40 mg/dL Triglycerides, Plasma 189(H) <150 mg/dL 02/05/2021 3:39 AM EST [facility] Comment: Triglyceride Reference Range (age >17 years): Desirable:?? <150 mg/dL Borderline high:?? 150 to 199 mg/dL High:?? 200 to 499 mg/dL Very high:?? >499 mg/dL Increased risk of pancreatitis:?? >1000 mg/dL Cholesterol/HDL Ratio 5 02/05/2021 3:39 AM EST [facility] LDL, Calculated 135.2(H) <100 mg/dL 02/05/2021 3:39 AM EST [facility] Comment: LDL Cholesterol Reference Range (age >17 years): Optimal: ??<100 mg/dL Near or above optimal: 100 - 129 mg/dL Borderline high: 130 - 159 mg/dL High: 160 - 189 mg/dL Very high: >189 mg/dL LDL Cholesterol Reference Range (age <18 years): Desirable: ? <110 mg/dL Borderline: ?110 - 129 mg/dL Undesirable: ?? >130 mg/dL Blood Venous blood specimen / Unknown 02/05/2021 2:40 AM EST 02/05/2021 3:02 AM EST Thor Tinajero MD LAB BLOOD ORDERABLES Final Re sult [facility] [address] [place] [address] * (ABNORMAL) CBC and Differential (02/05/2021 2:40 AM EST) WBC Count 4.07 3.70 - 10.30 10*3/uL LAB HEMATOLOGY METHOD 02/05/2021 3:10 AM EST [facility] RBC Count 3.79(L) 3.90 - 5.20 10*6/uL LAB HEMATOLOGY METHOD 02/05/2021 3:10 AM EST [facility] HGB 10.5(L) 11.2 - 15.7 g/dL LAB HEMATOLOGY METHOD 02/05/2021 3:10 AM EST [facility] HCT 33.2(L) 34.0 - 45.0 % LAB HEMATOLOGY METHOD 02/05/2021 3:10 AM EST [facility] Platelet Count 172 155 - 369 10*3/uL LAB HEMATOLOGY METHOD 02/05/2021 3:10 AM EST [facility] MCV 88 79 - 98 fL LAB HEMATOLOGY METHOD 02/05/2021 3:10 AM EST [facility] MCH 27.7 26.0 - 32.0 pg LAB HEMATOLOGY METHOD 02/05/2021 3:10 AM EST [facility] MCHC 31.6 30.7 - 35.5 g/dL LAB HEMATOLOGY METHOD 02/05/2021 3:10 AM EST [facility] RDW 14.3 11.5 - 14.5 % LAB HEMATOLOGY METHOD 02/05/2021 3:10 AM EST [facility] MPV 9.9 8.8 - 12.5 fL LAB HEMATOLOGY METHOD 02/05/2021 3:10 AM EST [facility] nRBC 0.0 <=0.0 per 100 WBCs LAB HEMATOLOGY METHOD 02/05/2021 3:10 AM EST [facility] Differential Type Automated LAB HEMATOLOGY METHOD 02/05/2021 3:10 AM EST [facility] Neutrophils % 47.0 % LAB HEMATOLOGY METHOD 02/05/2021 3:10 AM EST [facility] Lymphocytes % 47.0 % LAB HEMATOLOGY METHOD 02/05/2021 3:10 AM EST [facility] Monocytes % 4.0 % LAB HEMATOLOGY METHOD 02/05/2021 3:10 AM EST [facility] Eosinophils % 0.0 % LAB HEMATOLOGY METHOD 02/05/2021 3:10 AM EST [facility] Basophils % 1.0 % LAB HEMATOLOGY METHOD 02/05/2021 3:10 AM EST [facility] Immature Granulocytes % 1.0 % LAB HEMATOLOGY METHOD 02/05/2021 3:10 AM EST [facility] Neutrophils Absolute 1.95 1.60 - 6.10 10*3/uL LAB HEMATOLOGY METHOD 02/05/2021 3:10 AM EST [facility] Lymphocytes Absolute 1.91 1.20 - 3.90 10*3/uL LAB HEMATOLOGY METHOD 02/05/2021 3:10 AM EST [facility] Monocytes Absolute 0.17(L) 0.30 - 0.90 10*3/uL LAB HEMATOLOGY METHOD 02/05/2021 3:10 AM EST [facility] Eosinophils Absolute 0.00 0.00 - 0.50 10*3/uL LAB HEMATOLOGY METHOD 02/05/2021 3:10 AM EST [facility] Basophils Absolute 0.02 0.00 - 0.10 10*3/uL LAB HEMATOLOGY METHOD 02/05/2021 3:10 AM EST [facility] Immature Granulocytes Absolute 0.02 0.00 - 0.06 10*3/uL LAB HEMATOLOGY METHOD 02/05/2021 3:10 AM EST [facility] Blood Venous blood specimen / Unknown 02/05/2021 2:40 AM EST 02/05/2021 3:01 AM EST Narrative [facility] - 02/05/2021 3:10 AM EST Therapeutic decision making should be based on absolute values, rather than percentages. us Thor Tinajero MD LAB BLOOD ORDERABLES Final Re sult [facility] [address] [place] [address] * (ABNORMAL) Comprehensive metabolic panel (02/05/2021 2:40 AM EST) Pathologist [facility] Glucose, Plasma 101(H) 74 - 99 mg/dL 02/05/2021 3:39 AM EST [facility] BUN, Plasma 3(L) 7 - 21 mg/dL 02/05/2021 3:39 AM EST [facility] Creatinine, Plasma 0.61 0.60 - 1.10 mg/dL 02/05/2021 3:39 AM EST [facility] BUN/Creatinine Ratio 5 02/05/2021 3:39 AM [facility] Sodium, Plasma 140 136 - 145 mmol/L 02/05/2021 3:39 AM [facility] Potassium, Plasma 4.3 3.7 - 4.8 mmol/L 02/05/2021 3:39 AM [facility] Chloride, Plasma 105 97 - 107 mmol/L 02/05/2021 3:39 AM [facility] CO2, Plasma 25 22 - 29 mmol/L 02/05/2021 3:39 AM [facility] Anion Gap 10 6 - 16 mmol/L 02/05/2021 3:39 AM [facility] Total Calcium, Plasma 8.4(L) 8.9 - 10.2 mg/dL 02/05/2021 3:39 AM [facility] Total Protein 5.6(L) 6.3 - 7.9 g/dL 02/05/2021 3:39 AM [facility] Albumin, Plasma 3.3(L) 3.5 - 5.2 g/dL 02/05/2021 3:39 AM [facility] AST, Plasma 26 11 - 32 U/L 02/05/2021 3:39 AM [facility] ALT, Plasma 32 8 - 33 U/L 02/05/2021 3:39 AM [facility] Alkaline Phosphatase, Plasma 85 35 - 104 U/L 02/05/2021 3:39 AM [facility] Total Bilirubin, Plasma 0.2 0.2 - 1.1 mg/dL 02/05/2021 3:39 AM [facility] eGFR >60 >60 mL/min/1.7 3m*2 02/05/2021 3:39 AM [facility] Comment:eGFR = estimated GFR ; eGFR units = mL/min/1.73 sq meters Chronic Kidney Disease is considered if eGFR <60 mL/min/1.73 sq meters Kidney failure is considered if eGFR is <15 mL/min/1.73 sq meters. eGFR assumes steady state plasma creatinine concentration; not applicable if renal function is rapidly changing or patient is on dialysis. eGFR, if AFR/AM >60 >60 mL/min/1.7 3m*2 02/05/2021 3:39 AM [facility] Comment:eGFR = estimated GFR ; eGFR units = mL/min/1.73 sq meters Chronic Kidney Disease is considered if eGFR <60 mL/min/1.73 sq meters Kidney failure is considered if eGFR is <15 mL/min/1.73 sq meters. eGFR assumes steady state plasma creatinine concentration; not applicable if renal function is rapidly changing or patient is on dialysis. Blood Venous blood specimen / Unknown 02/05/2021 2:40 AM EST 02/05/2021 3:02 AM EST us Thor Tinajero MD LAB BLOOD ORDERABLES Final Re sult Performing Organization Address [facility] de Phone Number [facility] [address] [place] [address] * Phosphorus (02/05/2021 2:40 AM EST) Phosphorus, Plasma 4.5 2.5 - 4.5 mg/dL 02/05/2021 3:39 AM EST [facility] Blood Venous blood specimen / Unknown 02/05/2021 2:40 AM EST 02/05/2021 3:02 AM EST us Thor Tinajero MD LAB BLOOD ORDERABLES Final Re sult Performing Organization Address [facility] Phone Number [facility] [address] [place] [address] * (ABNORMAL) Magnesium (02/05/2021 2:40 AM EST) Magnesium, Plasma 2.5(H) 1.9 - 2.4 mg/dL 02/05/2021 3:39 AM EST [facility] Blood Venous blood specimen / Unknown 02/05/2021 2:40 AM EST 02/05/2021 3:02 AM EST us Thor Tinajero MD LAB BLOOD ORDERABLES Final Re sult Performing Organization Address [facility] Phone Number [facility] [address] [place] [address] * POCT glucose meter (02/04/2021 6:02 AM EST) POCT Glucose 82 74 - 99 mg/dL 02/04/2021 6:15 AM EST [facility] Comment:Accuracy of a glucos e result obtained from a capillary whole blood specimen relies upon adequate, non-compromised capillary blood flow. If the capillary glucose result is not consistent with the patient's clinical signs and symptoms, glucose testing should be repeated with either an arterial or venous sample on the glucometer or sent to the main labortory for testing. Comment 02/04/2021 6:15 AM EST [facility] Study Manager ID Dorene Florian 02/04/2021 6:15 AM EST [facility] Device ID [id number] 02/04/2021 6:15 AM EST [facility] Specimen Type POC Capillary 02/04/2021 6:15 AM EST [facility] Blood Capillary blood specimen / Unknown 02/04/2021 6:02 AM EST 02/04/2021 6:15 AM EST [facility] POINT OF CARE TE ST DOCKED DEVICE UNSOLICITED RESULTS Final Result Performing Organization Address City/State/[facility] Center Phone Number [facility] [address] [place] [address] * (ABNORMAL) THC Urine Confirm LCMSMS (02/04/2021 12:33 AM EST) 9 Carboxy THC <10 <10 ng/mL 02/05/2021 11:50 AM EST [facility] 9 Carboxy THC Glucuronide >250(H) <50 ng/mL 02/05/2021 11:50 AM EST [facility] Urine Urine specimen obtained by clean catch procedure / Unknown Non-blood Collection / Unknown 02/04/2021 12:33 AM EST 02/04/2021 12:36 AM EST Narrative [facility] - 02/05/2021 11:50 AM EST Drug analysis is confirmed by LC-MS/MS (LC Tandem Mass Spectrometry) on Urine specimens. ?? This test was developed and its performance characteristics determined by [facility]. It has not been cleared or approved by the FDA. The laboratory is regulated under CLIA as qualified to perform high-complexity testing. This test is used for clinical purposes. Testing is performed at the [facility]. Thor Tinajero MD LAB URINE ORDERABLES Final Re sult Performing Organization Address [facility] de Phone Number [facility] [address] [place] [address] * Drug Abuse Screen, Urine (02/04/2021 12:33 AM EST) [facility] Amphetamine Screen Urine Negative Negative 02/04/2021 1:49 AM EST [facility] Benzodiazepines Screen Urine Negative Negative 02/04/2021 1:49 AM EST [facility] Cannabinoid Screen Urine Presumptive positive. Confirmation by LC-MS/MS to follow. Negative 02/04/2021 1:49 AM EST [facility] Cocaine Screen Urine Negative Negative 02/04/2021 1:49 AM EST [facility] Barbiturate Screen Urine Negative Negative 02/04/2021 1:49 AM EST [facility] Opiate Screen Urine Negative Negative 02/04/2021 1:49 AM EST [facility] Methadone Screen Urine Negative Negative 02/04/2021 1:49 AM EST [facility] Buprenorphine Screen Urine Negative Negative 02/04/2021 1:49 AM EST [facility] Fentanyl Screen Urine Negative Negative 02/04/2021 1:49 AM EST [facility] Oxycodone Screen Urine Negative Negative 02/04/2021 1:49 AM EST [facility] Urine Urine specimen obtained by clean catch procedure / Unknown Non-blood Collection / Unknown 02/04/2021 12:33 AM EST 02/04/2021 12:36 AM EST Thor Tinajero MD LAB URINE ORDERABLES Final Re sult Performing Organization Address [facility] Co de Phone Number [facility] [address] [place] [address] * CT Abdomen Pelvis w IV Contrast (02/03/2021 8:45 PM EST) Anatomical Region Laterality Modality Abdomen, Pelvis Computed Tomogra phy Impressions 02/03/2021 10:29 PM EST 1. Unremarkable examination of the abdomen and pelvis. CRITICAL RESULT: ?? No. COMMUNICATION: Per this written report. Signed by Clif Barakat on ??02/03/2021 10:29 PM Narrative 02/03/2021 10:29 PM EST Exam/Procedure: CT ABDOMEN PELVIS W IV CONTRAST ordered by MERA DIEHL [id number] CLINICAL INDICATION: Nausea and vomiting TECHNIQUE: Imaging of the abdomen and pelvis was performed, from lung bases through pubic symphysis, using spiral technique, following administration of IV contrast, Omnipaque 300, 100 mL. Delayed (excretory phase) images were performed through the kidneys. Reformatted images in the coronal and sagittal planes were generated from the axial data set to facilitate diagnostic accuracy. Total DLP (Dose-Length Product): 1054.85 mGy.cm. Please note: The reported value represents the total of one or more individual components during the CT acquisition on this date and at this time, and as such, the same value may appear in more than one CT report depending on the interpreting/reporting physicians. COMPARISON: December 04, 2020 FINDINGS: Lung Bases: The lung bases are clear. Unchanged solid tissue breast mass in the right medial subcutaneous breast tissue dating back to 2017. Liver/Gallbladder/Biliary system: The liver demonstrates homogeneous enhancement. [...] Normal. Bones: No acute fracture. Procedure Note Clif Barakat MD - 02/03/2021 Exam/Procedure: CT ABDOMEN PELVIS W IV CONTRAST ordered by MERA [id number] CLINICAL INDICATION: Nausea and vomiting TECHNIQUE: Imaging of the abdomen and pelvis was performed, from lung bases throughpubic symphysis, using spiral technique, following administration of IVcontrast, Omnipaque 300, 100 mL. Delayed (excretory phase) images wereperformed through the kidneys. Reformatted images in the coronal andsagittal planes were generated from the axial data set to facilitatediagnostic accuracy. Total DLP (Dose-Length Product): 1054.85 mGy.cm. Please note: The reportedvalue represents the total of one or more individual components during theCT acquisition on this date and at this time, and as such, the same valuemay appear in more than one CT report depending on theinterpreting/reporting physicians. COMPARISON: December 04, 2020 FINDINGS: Lung Bases: The lung bases are clear. Unchanged solid tissue breast massin the right medial subcutaneous breast tissue dating back to 2017. Liver/Gallbladder/Biliary system: The liver demonstrates homogeneousenhancement. Cholecystectomy. [...] COMMUNICATION: Per this written report. Signed by Clif Barakat on 02/03/2021 10:29 PM us Mera NAJERA IMG CT PROCEDURES Final Result * hCG, serum, qualitative (02/03/2021 7:04 PM EST) Test Negative Negative 02/03/2021 8:07 PM EST [facility] Blood Venous blood specimen / Unknown Venipuncture / Unknown 02/03/2021 7:04 PM EST 02/03/2021 7:14 PM EST Narrative [facility] - 02/03/2021 8:07 PM EST Reference Range: Males and non- females: Negative. us Mera NJAERA LAB BLOOD ORDERABLES Final Resul t [facility] [address] [place] [address] * (ABNORMAL) CBC w/diff (02/03/2021 7:04 PM EST) WBC Count 6.91 3.70 - 10.30 10*3/uL LAB HEMATOLOGY METHOD 02/03/2021 7:16 PM EST [facility] RBC Count 4.14 3.90 - 5.20 10*6/uL LAB HEMATOLOGY METHOD 02/03/2021 7:16 PM EST [facility] HGB 11.5 11.2 - 15.7 g/dL LAB HEMATOLOGY METHOD 02/03/2021 7:16 PM EST [facility] HCT 36.5 34.0 - 45.0 % LAB HEMATOLOGY METHOD 02/03/2021 7:16 PM EST [facility] Platelet Count 219 155 - 369 10*3/uL LAB HEMATOLOGY METHOD 02/03/2021 7:16 PM EST [facility] MCV 88 79 - 98 fL LAB HEMATOLOGY METHOD 02/03/2021 7:16 PM EST [facility] MCH 27.8 26.0 - 32.0 pg LAB HEMATOLOGY METHOD 02/03/2021 7:16 PM EST [facility] MCHC 31.5 30.7 - 35.5 g/dL LAB HEMATOLOGY METHOD 02/03/2021 7:16 PM EST [facility] RDW 14.5 11.5 - 14.5 % LAB HEMATOLOGY METHOD 02/03/2021 7:16 PM EST [facility] MPV 10.1 8.8 - 12.5 fL LAB HEMATOLOGY METHOD 02/03/2021 7:16 PM EST [facility] nRBC 0.0 <=0.0 per 100 WBCs LAB HEMATOLOGY METHOD 02/03/2021 7:16 PM EST [facility] Differential Type Automated LAB HEMATOLOGY METHOD 02/03/2021 7:16 PM EST [facility] Neutrophils % 54.0 % LAB HEMATOLOGY METHOD 02/03/2021 7:16 PM EST [facility] Lymphocytes % 39.0 % LAB HEMATOLOGY METHOD 02/03/2021 7:16 PM EST [facility] Monocytes % 5.0 % LAB HEMATOLOGY METHOD 02/03/2021 7:16 PM EST [facility] Eosinophils % 0.0 % LAB HEMATOLOGY METHOD 02/03/2021 7:16 PM EST [facility] Basophils % 1.0 % LAB HEMATOLOGY METHOD 02/03/2021 7:16 PM EST [facility] Immature Granulocytes % 1.0 % LAB HEMATOLOGY METHOD 02/03/2021 7:16 PM EST [facility] Neutrophils Absolute 3.69 1.60 - 6.10 10*3/uL LAB HEMATOLOGY METHOD 02/03/2021 7:16 PM EST [facility] Lymphocytes Absolute 2.72 1.20 - 3.90 10*3/uL LAB HEMATOLOGY METHOD 02/03/2021 7:16 PM EST [facility] Monocytes Absolute 0.36 0.30 - 0.90 10*3/uL LAB HEMATOLOGY METHOD 02/03/2021 7:16 PM EST [facility] Eosinophils Absolute 0.01 0.00 - 0.50 10*3/uL LAB HEMATOLOGY METHOD 02/03/2021 7:16 PM EST [facility] Basophils Absolute 0.06 0.00 - 0.10 10*3/uL LAB HEMATOLOGY METHOD 02/03/2021 7:16 PM EST [facility] Immature Granulocytes Absolute 0.07(H) 0.00 - 0.06 10*3/uL LAB HEMATOLOGY METHOD 02/03/2021 7:16 PM EST [facility] Blood Venous blood specimen / Unknown Venipuncture / Unknown 02/03/2021 7:04 PM EST 02/03/2021 7:14 PM EST Narrative [facility] - 02/03/2021 7:16 PM EST Therapeutic decision making should be based on absolute values, rather than percentages. us Mera NAJERA LAB BLOOD ORDERABLES Final Resul t [facility] [address] [place] [address] * Lactate, venous (02/03/2021 7:04 PM EST) Lactate, Venous, Whole Blood 2.0 0.5 - 2.2 mmol/L LAB HEMATOLOGY METHOD 02/03/2021 7:16 PM EST [facility] Blood Venous blood specimen / Unknown Venipuncture / Unknown 02/03/2021 7:04 PM EST 02/03/2021 7:15 PM EST us Mera Lantigua Javier DC LAB BLOOD ORDERABLES Final Resul t Performing Organization Address City/[facility]/ZIP Co de Phone Number [facility] [address] [place] [address] * (ABNORMAL) Lipase, Plasma (02/03/2021 7:04 PM EST) Lipase, Plasma 94(H) 19 - 63 U/L 02/03/2021 8:07 PM EST [facility] Blood Venous blood specimen / Unknown Venipuncture / Unknown 02/03/2021 7:04 PM EST 02/03/2021 7:14 PM EST Mera Lantigua Javier DC LAB BLOOD ORDERABLES Final Resul t Performing Organization Address [facility] Co de Phone Number [facility] [address] [place] [address] * (ABNORMAL) Comprehensive Metabolic Panel, Plasma (02/03/2021 7:04 PM EST) Glucose, Plasma 87 74 - 99 mg/dL 02/03/2021 8:07 PM EST [facility] BUN, Plasma 6(L) 7 - 21 mg/dL 02/03/2021 8:07 PM EST [facility] Creatinine, Plasma 0.65 0.60 - 1.10 mg/dL 02/03/2021 8:07 PM EST [facility] BUN/Creatinine Ratio 9 02/03/2021 8:07 PM EST [facility] Sodium, Plasma 137 136 - 145 mmol/L 02/03/2021 8:07 PM EST [facility] Potassium, Plasma 4.3 3.7 - 4.8 mmol/L 02/03/2021 8:07 PM EST [facility] Chloride, Plasma 100 97 - 107 mmol/L 02/03/2021 8:07 PM EST [facility] CO2, Plasma 23 22 - 29 mmol/L 02/03/2021 8:07 PM EST [facility] Anion Gap 14 6 - 16 mmol/L 02/03/2021 8:07 PM EST [facility] Total Calcium, Plasma 8.9 8.9 - 10.2 mg/dL 02/03/2021 8:07 PM EST [facility] Total Protein 6.4 6.3 - 7.9 g/dL 02/03/2021 8:07 PM EST [facility] Albumin, Plasma 3.9 3.5 - 5.2 g/dL 02/03/2021 8:07 PM EST [facility] AST, Plasma 25 11 - 32 U/L 02/03/2021 8:07 PM EST [facility] ALT, Plasma 34(H) 8 - 33 U/L 02/03/2021 8:07 PM EST [facility] Alkaline Phosphatase, Plasma 90 35 - 104 U/L 02/03/2021 8:07 PM EST [facility] Total Bilirubin, Plasma <0.2(L) 0.2 - 1.1 mg/dL 02/03/2021 8:07 PM EST [facility] eGFR >60 >60 mL/min/1.7 3m*2 02/03/2021 8:07 PM EST [facility] Comment:eGFR = estimated GFR ; eGFR units = mL/min/1.73 sq meters Chronic Kidney Disease is considered if eGFR <60 mL/min/1.73 sq meters Kidney failure is considered if eGFR is <15 mL/min/1.73 sq meters. eGFR assumes steady state plasma creatinine concentration; not applicable if renal function is rapidly changing or patient is on dialysis. eGFR, if AFR/AM >60 >60 mL/min/1.7 3m*2 02/03/2021 8:07 PM EST [facility] Comment:eGFR = estimated GFR [...] blood specimen / Unknown Venipuncture / Unknown 02/03/2021 7:04 PM EST 02/03/2021 7:14 PM EST us Mera NAJERA LAB BLOOD ORDERABLES Final Resul t [facility] [address] [place] [address] * SARS-CoV-2 COVID-19/Influenza A,B (02/03/2021 6:49 PM EST) Pathologist [facility] SARS CoV-2/COVID-1 9 RNA PCR Result Not Detected Not Detected 02/03/2021 8:01 PM EST [facility] Influenza A Virus PCR Result Not Detected Not Detected 02/03/2021 8:01 PM EST [facility] Influenza B Virus PCR Result Not Detected Not Detected 02/03/2021 8:01 PM EST [facility] Swab Nasopharyngeal structure / Unknown Non-blood Collection / Unknown 02/03/2021 6:49 PM EST 02/03/2021 7:17 PM EST [facility] - 02/03/2021 8:01 PM EST This test was performed using [...] clinical signs and symptoms consistent with COVID-19. [facility] NAJER[facility] LAB MICROBIOLOGY - GENERAL ORDER STACIA Final Result [facility] [address] [place] [address] * Urinalysis with reflex microscopic (02/03/2021 6:47 PM EST) Pathologist [facility] Color, Urine Yellow LAB URINALYSIS - AUTOMATED METHOD 02/03/2021 7:17 PM EST [facility] Clarity, Urine Clear LAB URINALYSIS - AUTOMATED METHOD 02/03/2021 7:17 PM EST [facility] Spec Larue, Urine 1.019 <=1.005 to >=1.030 LAB URINALYSIS - AUTOMATED METHOD 02/03/2021 7:17 PM EST [facility] pH, Urine 6.5 4.5 to 8 LAB URINALYSIS - AUTOMATED METHOD 02/03/2021 7:17 PM EST [facility] Protein, Urine Negative Negative mg/dL LAB URINALYSIS - AUTOMATED METHOD 02/03/2021 7:17 PM EST [facility] Glucose, Urine Negative Negative mg/dL LAB URINALYSIS - AUTOMATED METHOD 02/03/2021 7:17 PM EST [facility] Ketones, Urine Negative Negative mg/dL LAB URINALYSIS - AUTOMATED METHOD 02/03/2021 7:17 PM EST [facility] Blood, Urine Negative Negative LAB URINALYSIS - AUTOMATED METHOD 02/03/2021 7:17 PM EST [facility] Bilirubin, Urine Negative Negative LAB URINALYSIS - AUTOMATED METHOD 02/03/2021 7:17 PM EST [facility] Urobilinogen, Urine 0.2 0.2 to 1.0 mg/dL LAB URINALYSIS - AUTOMATED METHOD 02/03/2021 7:17 PM EST [facility] Leukocytes, Urine Negative Negative LAB URINALYSIS - AUTOMATED METHOD 02/03/2021 7:17 PM EST [facility] Nitrite, Urine Negative Negative LAB URINALYSIS - AUTOMATED METHOD 02/03/2021 7:17 PM [facility] Urine Urine specimen obtained by clean catch procedure / Unknown Non-blood Collection / Unknown 02/03/2021 6:47 PM EST 02/03/2021 7:14 PM EST Mera NAJERA LAB URINE ORDERABLES Final Resul t [facility] [address] [place] [address] documented in this encounter Visit Diagnoses Diagnosis Intractable left upper quadrant abdominal pain- Primary Intractable left upper quadrant abdominal pain Acute on chronic pancreatitis (CMS/HCC) documented in this encounter Admitting Diagnoses Diagnosis Intractable left upper quadrant abdominal pain documented in this encounter Administered Medications Inactive Administered Medications - up to 3 most recent administrations Medication Order MAR Action Action Date Dose Rate Site acetaminophen (Tylenol) tablet 650 mg 650 mg, Oral, Every 8 hours PRN, Starting on 02/04/21 at 1728, Until Thu02/07/21 at 0756, Routine, mild pain Given 02/04/2021 5:58 PM EST 650 mg acetaminophen (Tylenol) tablet 650 mg 650 mg, Oral, Every 6 hours scheduled, First dose (after last modification) on Thu02/07/21 at 1200, Until Discontinued, Routine Given 02/10/2021 1:40 PM EST 650 mg Given 02/10/2021 6:35 AM EST 650 mg Given 02/10/2021 12:39 AM EST 650 mg ascorbic acid (Vitamin C) tablet 250 mg 250 mg, Oral, Daily, First dose on Thu02/06/21 at 0900, Until Discontinued, Routine Given 02/10/2021 8:5 3 AM EST 250 mg Given 02/09/2021 8:57 AM EST 250 mg Given 02/08/2021 7:42 AM EST 250 mg COVID-19 mRNA (Pfizer? [employer]) vaccine 0.3 mL 0.3 mL, Intramuscular, Once, 1 dose, On Thu02/10/21 at 1400, Routine Given 02/10/2021 2:02 PM EST 0.3 mL Left Deltoid diphenhydrAMINE (BENADryl) tablet 25 mg 25 mg, Oral, Every 6 hours PRN, Starting on Thu02/04/21 at 0022, Until Thu02/10/21 at 1727, Routine, itching Given 02/10/2021 12:42 AM EST 25 mg Given 02/07/2021 9:08 PM EST 25 mg Given 02/06/2021 11:58 PM EST 25 mg enoxaparin (Lovenox) syringe 30 mg 30 mg, Subcutaneous, 2 times daily, First dose on Thu02/04/21 at 1115, Until Discontinued, Routine Given 02/10/2021 8:53 AM EST 30 mg Left Upper Abdomen Given 02/09/2021 8:17 PM EST 30 mg Ri ght Lower Abdomen Given 02/09/2021 8:57 AM EST 30 mg Le ft Lower Abdomen fentaNYL (Sublimaze) injection 25 mcg 25 mcg, Intravenous, Once, 1 dose, On 02/03/21 at 1930, STAT Given 02/03/2021 7:48 PM EST 25 mcg fentaNYL (Sublimaze) injection 50 mcg 50 mcg, Intravenous, Once, 1 dose, On [place] 02/03/21 at 1840, STAT Given 02/03/2021 7:03 PM EST 50 mcg ferrous sulfate EC tablet 324 mg 324 mg, Oral, Daily with breakfast, First dose on Thu02/06/21 at 0900, Until Discontinued, Routine Given 02/10/2021 8:53 AM EST 324 mg Given 02/09/2021 8:57 AM EST 324 mg Given 02/08/2021 7:42 AM EST 324 mg gi cocktail oral solution 30 mL 30 mL, Oral, 4 times daily PRN, 4 doses, Starting on Thu02/04/21 at 0021, Until [place] 02/10/21 at 1727, Routine, cramping, abdominal pain Given 02/05/2021 3:51 AM EST 30 mL Given 02/04/2021 8:15 PM EST 30 mL Given 02/04/2021 6:58 AM EST 30 mL HYDROmorphone (Dilaudid) injection 0.25 mg 0.25 mg, Intravenous, Once, 1 dose, On [place] 02/03/21 at 2030, STAT Given 02/03/2021 8:29 PM EST 0.25 mg HYDROmorphone (Dilaudid) injection 0.25 mg 0.25 mg, Intravenous, Once, 1 dose, On [place] 02/03/21 at 2150, STAT Given 02/03/2021 10:07 PM EST 0.25 mg HYDROmorphone (Dilaudid) injection 0.25 mg 0.25 mg, Intravenous, Every 3 hours PRN, Starting on Thu02/04/21 at 0022, Until Thu02/06/21 at 0708, Routine, severe pain Given 02/05/2021 9:55 PM EST 0.25 mg Given 02/05/2021 6:41 PM EST 0.25 mg Given 02/05/2021 3:41 PM EST 0.25 mg HYDROmorphone (Dilaudid) injection 0.25 mg 0.25 mg, Intravenous, Every 4 hours PRN, Starting on Thu02/06/21 at 0715, Until [facility] 02/07/21 at 1212, Routine, severe pain Given 02/07/2021 8:19 AM EST 0.25 mg Given 02/07/2021 4:37 AM EST 0.25 mg Given 02/07/2021 12:36 AM EST 0.25 mg HYDROmorphone (Dilaudid) injection 0.5 mg 0.5 mg, Intravenous, Every 4 hours PRN, Starting on [place] 02/07/21 at 1212, Until 02/09/21 at 1002, Routine, severe pain Given 02/09/2021 8:56 AM EST 0.5 m g Given 02/09/2021 1:27 AM EST 0.5 mg Given 02/08/2021 9:21 PM EST 0.5 mg ibuprofen tablet 600 mg 600 mg, Oral, Every 6 hours scheduled, First dose on [place] 02/07/21 at 0815, Until Discontinued, Routine Given 02/08/2021 5:20 AM EST 600 mg Given 02/07/2021 11:33 PM EST 600 mg Given 02/07/2021 5:00 PM EST 600 mg iohexol (OMNIPaque) 300 MG/ML injection 100 mL 100 mL, Intravenous, Once in imaging, 1 dose, Starting on 02/03/21 at 2045, Until 02/03/21 at 2045, Routine, Imaging Protocol Orders Given 02/03/2021 8:45 PM EST 100 mL ketorolac (Toradol) injection 30 mg 30 mg, Intravenous, Once, 1 dose, On [place] 02/07/21 at 1230, Routine Given 02/07/2021 1:03 PM EST 30 mg ketorolac (Toradol) injection 30 mg 30 mg, Intravenous, Every 6 hours PRN, Starting on [place] 02/07/21 at 1700, Until 02/10/21 at 1727, Routine, severe pain Given 02/09/2021 3:52 PM EST 30 mg Given 02/08/2021 1:20 PM EST 30 mg Given 02/08/2021 12:59 AM EST 30 mg lactated Ringer's infusion 150 mL/hr, Intravenous, Continuous, Starting on [place] 02/07/21 at 1330, Until 02/09/21 at 1002, Routine Rate/Dose Verify 02/07/2021 8:00 PM EST 150 mL/hr 150 mL/hr New Bag 02/07/2021 1:32 PM EST 150 mL/hr 150 mL/hr lurasidone (Latuda) tablet 40 mg 40 mg, Oral, Daily with breakfast, First dose on Thu02/05/21 at 0800, Until Discontinued, Routine Given 02/05/2021 8:25 AM EST 40 mg lurasidone (Latuda) tablet 40 mg 40 mg, Oral, Nightly, First dose (after last modification) on [place] 02/07/21 at 2100, Until Discontinued, Routine Given 02/09/2021 8:16 PM EST 40 mg Given 02/08/2021 9:21 PM EST 40 mg Given 02/07/2021 8:56 PM EST 40 mg melatonin tablet 3 mg 3 mg, Oral, Nightly PRN, Starting on Thu02/04/21 at 0022, Until 02/10/21 at 1727, Routine, sleep Given 02/09/2021 8:16 PM EST 3 mg Given 02/08/2021 9:21 PM EST 3 mg Given 02/04/2021 9:37 PM EST 3 mg miconazole nitrate ointment Topical, 2 times daily, 28 doses, First dose on Thu02/04/21 at 1415, Last dose on 02/17/21 at 2100, Routine Given 02/10/2021 8:54 AM EST Given 02/09/2021 8:22 PM EST Given 02/09/2021 9:05 AM EST nicotine (Nicoderm CQ) 14 MG/24HR patch 1 patch 1 patch, Transdermal, Daily, 14 doses, First dose on Thu03/18/21 at 0900, Last dose on 03/31/21 at 0900, Routine nicotine (Nicoderm CQ) 21 MG/24HR patch 1 patch 1 patch, Transdermal, Daily, 42 doses, First dose on Thu02/04/21 at 0900, Last dose on 03/17/21 at 0900, Routine Medication Applied 02/06/2021 11:16 AM EST 1 patch Other nicotine (Nicoderm CQ) 7 MG/24HR patch 1 patch 1 patch, Transdermal, Daily, 14 doses, First dose on Thu04/01/21 at 0900, Last dose on 04/14/21 at 0900, Routine ondansetron (Zofran) injection 4 mg 4 mg, Intravenous, Once, 1 dose, On 02/03/21 at 1840, STAT Given 02/03/2021 7:04 PM EST 4 mg ondansetron (Zofran) injection 4 mg 4 mg, Intravenous, Once, 1 dose, On 02/03/21 at 2205, STAT Given 02/03/2021 10:07 PM EST 4 mg ondansetron (Zofran) injection 4 mg 4 mg, Intravenous, Every 6 hours PRN, Starting on Thu02/04/21 at 0022, Until 02/05/21 at 1517, Routine, nausea, vomiting Given 02/05/2021 9:09 AM EST 4 mg Given 02/05/2021 3:51 AM EST 4 mg Given 02/04/2021 9:30 PM EST 4 mg ondansetron (Zofran) injection 4 mg 4 mg, Intravenous, Every 6 hours PRN, Starting on [place] 02/07/21 at 1212, Until Thu02/10/21 at 1727, Routine, nausea, vomiting Given 02/09/2021 8:56 AM EST 4 mg Given 02/08/2021 9:23 PM EST 4 mg Given 02/08/2021 1:20 PM EST 4 mg ondansetron ODT (Zofran-ODT) disintegrating tablet 4 mg 4 mg, Oral, Every 6 hours PRN, Starting on Thu02/05/21 at 1517, Until [place] 02/07/21 at 1212, Routine, nausea, vomiting Given 02/07/2021 8:27 AM EST 4 mg Given 02/06/2021 11:58 PM EST 4 mg Given 02/06/2021 4:20 PM EST 4 mg oxyCODONE (Roxicodone) immediate release tablet 10 mg 10 mg, Oral, Every 6 hours PRN, Starting on Thu02/05/21 at 1727, Until [place] 02/07/21 at 1212, Routine, pain Given 02/07/2021 11:36 AM EST 10 mg Given 02/07/2021 5:47 AM EST 10 mg Given 02/06/2021 11:39 PM EST 10 mg oxyCODONE (Roxicodone) immediate release tablet 10 mg 10 mg, Oral, Every 4 hours PRN, Starting on [place] 02/07/21 at 1215, Until [place] 02/10/21 at 1727, Routine, pain Given 02/10/2021 1:28 PM EST 10 mg Given 02/10/2021 6:35 AM EST 10 mg Given 02/10/2021 12:39 AM EST 10 mg oxyCODONE (Roxicodone) immediate release tablet 5 mg 5 mg, Oral, Every 6 hours PRN, Starting on Thu02/05/21 at 0848, Until Thu02/05/21 at 1727, Routine, pain Given 02/05/2021 4:39 PM EST 5 mg Given 02/05/2021 9:09 AM EST 5 mg pancrelipase (Creon) 42607 units capsule 2 capsule, Oral, 3 times daily with meals, First dose on [place] 02/07/21 at 1230, Until Discontinued, Routine Given 02/10/2021 1:28 PM EST 2 capsules Given 02/10/2021 8:53 AM EST 2 capsules Given 02/09/2021 5:45 PM EST 2 capsules pantoprazole (Protonix) injection 40 mg 40 mg, Intravenous, Once, 1 dose, On 02/03/21 at 1845, STAT Given 02/03/2021 7:49 PM EST 40 mg pantoprazole (Protonix) injection 40 mg 40 mg, Intravenous, Daily, First dose on Thu02/04/21 at 0900, Until Discontinued, Routine Given 02/05/2021 8:1 4 AM EST 40 mg Given 02/04/2021 8:27 AM EST 40 mg pregabalin (Lyrica) capsule 300 mg 300 mg, Oral, 2 times daily, First dose on Thu02/05/21 at 1130, Until Discontinued, Routine Given 02/10/2021 8:53 AM EST 300 mg Given 02/09/2021 8:16 PM EST 300 mg Given 02/09/2021 8:57 AM EST 300 mg promethazine (Phenergan) tablet 12.5 mg 12.5 mg, Oral, Every 4 hours PRN, Starting on Thu02/08/21 at 0959, Until Thu02/10/21 at 1727, Routine, nausea, vomiting Given 02/08/2021 4:53 PM EST 12.5 mg sodium chloride 0.9 % (NS) infusion 150 mL/hr, Intravenous, Continuous, Starting on Thu02/04/21 at 0025, Until Thu02/05/21 at 1417, Routine New Bag 02/05/2021 7:23 AM EST 150 mL/hr 150 m L/hr New Bag 02/04/2021 10:47 PM EST 150 mL/hr 150 mL/hr New Bag 02/04/2021 7:23 AM EST 150 mL/hr 150 mL/hr sodium chloride 0.9 % flush 10 mL 10 mL, Intravenous, Every 8 hours PRN, Starting on Thu02/04/21 at 0015, Until 02/10/21 at 1727, Routine, line care sodium chloride 0.9 % infusion - 1,000mL 1,000 mL, Intravenous, Once, 1 dose, On Thu02/03/21 at 1840, STAT New Bag 02/03/2021 7:03 PM EST 1,000 mL venlafaxine XR (Effexor-XR) 24 hr capsule 150 mg 150 mg, Oral, Daily with breakfast, First dose on Thu02/05/21 at 0800, Until Discontinued, Routine Given 02/10/2021 8:53 AM EST 150 mg Given 02/09/2021 8:57 AM EST 150 mg Given 02/08/2021 7:42 AM EST 150 mg documented in this encounter Active and Recently Administered Medications Times are shown in EST. Scheduled Medication Order 02/08/2021 02/09/2021 02/10/2021 acetaminophen (Tylenol) tablet 650 mg 650 mg, Oral, Every 6 hours scheduled, First dose (after last modification) on Thu02/07/21 at 1200, Until Discontinued, Routine 0520 (Given - Provider: Ebenezer Lagos LPN)1100 (Given - Provider: Zandra Chinchilla RN)1758 (Given - Provider: Val Frank RN)2354 (Not Given - Provider: Yordan Gunter RN - Reason: Other) 0645 (Not Given - Provider: Yordan Gunter RN - Reason: Other)1214 (Given - Provider: Farida Herbert LPN)1745 (Given - Provider: Farida Herbert LPN) 0039 (Given - Provider: Yordan Gunter RN)0635 (Given - Provider: Yordan Gunter RN)1340 (Given - Provider: Myrna Thomas RN) ascorbic acid (Vitamin C) tablet 250 mg 250 mg, Oral, Daily, First dose on Thu02/06/21 at 0900, Until Discontinued, Routine 0742 (Given - Provider: Val Frank RN) 0857 (Given - Provider: Farida Herbert LPN) 0853 (Given - Provider: Myrna Thomas RN) COVID-19 mRNA (Pfizer? [employer]) vaccine 0.3 mL (COMPLETED) 0.3 mL, Intramuscular, Once, 1 dose, On Thu02/10/21 at 1400, Routine 1402 (Given - Provider: Myrna Thomas RN) enoxaparin (Lovenox) syringe 30 mg 30 mg, Subcutaneous, 2 times daily, First dose on Thu02/04/21 at 1115, Until Discontinued, Routine 0743 (Given - Provider: Val Frank RN)2120 (Given - Provider: Yordan Gunter RN) 0857 (Given - Provider: Farida Herbert LPN)2016 (Given - Provider: Yordan Gunter RN) 0853 (Given - Provider: Myrna Thomas RN) ferrous sulfate EC tablet 324 mg 324 mg, Oral, Daily with breakfast, First dose on Thu02/06/21 at 0900, Until Discontinued, Routine 0742 (Given - Provider: Val Frank RN) 0857 (Given - Provider: Farida Herbert LPN) 0853 (Given - Provider: Myrna Thomas RN) ibuprofen tablet 600 mg (CANCELED) 600 mg, Oral, Every 6 hours scheduled, First dose on Thu02/07/21 at 0815, Until Discontinued, Routine 0520 (Given - Provider: Ebenezer Lagos LPN) lurasidone (Latuda) tablet 40 mg 40 mg, Oral, Nightly, First dose (after last modification) on Thu02/07/21 at 2100, Until Discontinued, Routine 2120 (Given - Provider: Yordan Gunter RN) 2015 (Given - Provider: Yordan Gunter RN) miconazole nitrate ointment Topical, 2 times daily, 28 doses, First dose on Thu02/04/21 at 1415, Last dose on Thu02/17/21 at 2100, Routine 0745 (Given - Provider: Val Frank RN)2129 (Given - Provider: Yordan Gunter RN) 0905 (Given - Provider: Farida Herbert LPN)2021 (Given - Provider: Yordan Gunter RN) 0854 (Given - Provider: Myrna Thomas RN) nicotine (Nicoderm CQ) 14 MG/24HR patch 1 patch(Linked Group 1) 1 patch, Transdermal, Daily, 14 doses, First dose on Thu03/18/21 at 0900, Last dose on Thu03/31/21 at 0900, Routine nicotine (Nicoderm CQ) 21 MG/24HR patch 1 patch(Linked Group 1) 1 patch, Transdermal, Daily, 42 doses, First dose on Thu02/04/21 at 0900, Last dose on Thu03/17/21 at 0900, Routine 0745 (Not Given - Provider: Val Frank RN - Reason: Patient/family refused) 09 (Not Given - Provider: Farida Herbert LPN - Reason: Patient/family refused) 0854 (Not Given - Provider: Myrna Thomas RN - Reason: Patient/family refused) nicotine (Nicoderm CQ) 7 MG/24HR patch 1 patch(Linked Group 1) 1 patch, Transdermal, Daily, 14 doses, First dose on Thu04/01/21 at 0900, Last dose on Thu04/14/21 at 0900, Routine pancrelipase (Creon) 54309 units capsule 2 capsule, Oral, 3 times daily with meals, First dose on Thu02/07/21 at 1230, Until Discontinued, Routine 0743 (Given - Provider: Val Frank RN)1100 (Given - Provider: Zandra Chinchilla RN)1653 (Given - Provider: Val Frank RN) 0857 (Given - Provider: Farida Herbert LPN)1214 (Given - Provider: Farida Herbert LPN)1745 (Given - Provider: Farida Herbert LPN) 0853 (Given - Provider: Myrna Thomas RN)1328 (Given - Provider: Latricia Zheng RN) pregabalin (Lyrica) capsule 300 mg 300 mg, Oral, 2 times daily, First dose on Thu02/05/21 at 1130, Until Discontinued, Routine 0743 (Given - Provider: Val Frank RN)2120 (Given - Provider: Yordan Gunter RN) 0857 (Given - Provider: Farida Herbert LPN)2015 (Given - Provider: Yordan Gunter RN) 0853 (Given - Provider: Myrna Thomas RN) venlafaxine XR (Effexor-XR) 24 hr capsule 150 mg 150 mg, Oral, Daily with breakfast, First dose on Thu02/05/21 at 0800, Until Discontinued, Routine 0742 (Given - Provider: Val Frank RN) 0857 (Given - Provider: Farida Herbert LPN) 0853 (Given - Provider: Myrna Thomas RN) PRN Medication Order 02/08/2021 02/09/2021 02/10/2021 diphenhydrAMINE (BENADryl) tablet 25 mg 25 mg, Oral, Every 6 hours PRN, Starting on Thu02/04/21 at 0022, Until 02/10/21 at 1727, Routine, itching 0042 (Given - Provider: Yordan Gunter RN) gi cocktail oral solution 30 mL 30 mL, Oral, 4 times daily PRN, 4 doses, Starting on Thu02/04/21 at 0021, Until 02/10/21 at 1727, Routine, cramping, abdominal pain HYDROmorphone (Dilaudid) injection 0.5 mg (CANCELED) 0.5 mg, Intravenous, Every 4 hours PRN, Starting on Annabel 02/07/21 at 1212, Until 02/09/21 at 1002, Routine, severe pain 0100 (Given - Provider: Ebenezer Lagos LPN)0521 (Given - Provider: Ebenezer Lagos LPN)0909 (Given - Provider: Val Frank RN)1313 (Given - Provider: Val Frank RN)1653 (Given - Provider: Val Frank RN)2121 (Given - Provider: Yordan Gunter RN) 0127 (Given - Provider: Yordan Gunter RN)0856 (Given - Provider: Farida Herbert LPN) ketorolac (Toradol) injection 30 mg 30 mg, Intravenous, Every 6 hours PRN, Starting on Annabel 02/07/21 at 1700, Until 02/10/21 at 1727, Routine, severe pain 0059 (Given - Provider: Ebenezer Lagos LPN)1320 (Given - Provider: Val Frank RN) 1552 (Given - Provider: Farida Herbert LPN - Comment: epic down on [employer]) melatonin tablet 3 mg 3 mg, Oral, Nightly PRN, Starting on 02/04/21 at 0022, Until 02/10/21 at 1727, Routine, sleep 2121 (Given - Provider: Yordan Gunter, RN) 2015 (Given - Provider: Yordan Gunter RN) ondansetron (Zofran) injection 4 mg 4 mg, Intravenous, Every 6 hours PRN, Starting on Annabel 02/07/21 at 1212, Until 02/10/21 at 1727, Routine, nausea, vomiting 0520 (Given - Provider: Ebenezer Lagos LPN)1320 (Given - Provider: Val Frank RN)2123 (Given - Provider: Yordan Gunter RN) 0856 (Given - Provider: Farida Herbert LPN) oxyCODONE (Roxicodone) immediate release tablet 10 mg 10 mg, Oral, Every 4 hours PRN, Starting on Annabel 02/07/21 at 1215, Until 02/10/21 at 1727, Routine, pain 0324 (Given - Provider: Ebenezer Lagos LPN)1059 (Given - Provider: Zandra Chinchilla RN)1758 (Given - Provider: Val Frank RN) 0[facility] Provider: Ynes Moody RN - Comment: pt sleeping)1306 (Given - Provider: Farida Herbert LPN)1837 (Given - Provider: Farida Herbert LPN) 0039 (Given - Provider: Yordan Gunter RN)0635 (Given - Provider: Yordan Gunter RN)1328 (Given - Provider: Latricia Zheng RN) promethazine (Phenergan) tablet 12.5 mg 12.5 mg, Oral, Every 4 hours PRN, Starting on Thu02/08/21 at 0959, Until 02/10/21 at 1727, Routine, nausea, vomiting 1653 (Given - Provider: Val Frank RN) sodium chloride 0.9 % flush 10 mL(Linked Group 2) 10 mL, Intravenous, Every 8 hours PRN, Starting on Thu02/04/21 at 0015, Until Thu02/10/21 at 1727, Routine, line care Linked Groups Order Group 1: nicotine (Nicoderm CQ) 21 MG/24HR patch 1 patchJump to med 1 patch, Transdermal, Daily, 42 doses, First dose on Thu02/04/21 at 0900, Last dose on Thu03/17/21 at 0900, Routine Followed by nicotine (Nicoderm CQ) 14 MG/24HR patch 1 patchJump to med 1 patch, Transdermal, Daily, 14 doses, First dose on Thu03/18/21 at 0900, Last dose on Thu03/31/21 at 0900, Routine Followed by nicotine (Nicoderm CQ) 7 MG/24HR patch 1 patchJump to med 1 patch, Transdermal, Daily, 14 doses, First dose on Thu04/01/21 at 0900, Last dose on Thu04/14/21 at 0900, Routine Group 2: Insert peripheral IV (COMPLETED) Once, On Thu02/04/21 at 0016, For 1 occurrence And Saline lock IV (COMPLETED) Once, On Thu02/04/21 at 0016, For 1 occurrence And sodium chloride 0.9 % flush 10 mLJump to med 10 mL, Intravenous, Every 8 hours PRN, Starting on Thu02/04/21 at 0015, Until Thu02/10/21 at 1727, Routine, line care documented in this encounter Additional Health Concerns Infection Onset Date Last Indicated Resolved Time Rhinovirus 11/03/2020 11/03/2020 02/03/2021 8:03 PM EST COVID-19 Rule-Out 02/03/2021 02/03/2021 02/03/2021 8:01 PM EST Assessment Noted Time A fall risk assessment has been complete d for the patient 11/21/2020 2:30 PM EDT documented as of this encounter Care Teams Deer Farm Worker Relationship Specialty Start Date End Date Elmo Escobar MD PCP - General 10/18/20 01/05/23 documented as of this encounter
--- OUTSIDE RECORDS SUMMARY | 2024-02-03 15:28 | XMS_ITS | Encounter Summary ---
Author Organization Healthcare Address [address] [place] [address] Care Team Providers Care Skidder Lever Operator Name Role Phone Elmo Escobar MD Primary Care Provider [phone] Encounter Details Date Type Department Care Team (Latest Contact Info) Description 11/21/2020 Travel Social History Tobacco Use Types Packs/Day [...] documented as of this encounter Care Teams Skidder Lever Operator Relationship Specialty Start Date End Date Elmo Escobar MD PCP - General 10/18/20 01/05/23 documented as of this encounter
--- OUTSIDE RECORDS SUMMARY | 2024-02-03 15:28 | XMS_ITS | Encounter Summary ---
Author Organization Healthcare Address [address] [place] [address] Care Team Providers Care Project Program Manager Name Role Phone Elmo Escobar MD Primary Care Provider [phone] Encounter Details Date Type Department Care Team (Latest Contact Info) Description 12/04/2020 Travel Social History Tobacco Use Types Packs/Day [...] documented as of this encounter Care Teams Project Program Manager Relationship Specialty Start Date End Date Elmo Escobar MD PCP - General 10/18/20 01/05/23 documented as of this encounter
--- OUTSIDE RECORDS SUMMARY | 2024-02-03 15:28 | XMS_ITS | Encounter Summary ---
Author Organization Healthcare Address [address] [place] [address] Care Team Providers Care Selvage Machine Operator Name Role Phone Elmo Escobar MD Primary Care Provider [phone] Encounter Details Date Type Department Care Team (Late st Contact Info) Description 11/[facility] [address] [place] [address] Elmo Escobar MD [facility] [place] [address] Social History Tobacco Use Types Packs/Day Years [...] documented as of this encounter Care Teams Selvage Machine Operator Relationship Specialty Start Date End Date Elmo Escobar MD PCP - General 10/18/20 01/05/23 documented as of this encounter
--- OUTSIDE RECORDS SUMMARY | 2024-02-03 15:28 | XMS_ITS | Encounter Summary ---
Author Organization Healthcare Address [address] [place] [address] Care Team Providers Care Senior Ux Developer Name Role Phone Elmo Escobar MD Primary Care Provider [phone] Reason for Visit * Auth/Cert Specialty Diagnoses / Procedures Referred By Susy burks Referred To Contact Diagnoses Acute pancreatitis without infection or necrosis, unspecified pancreatitis type Vivek Clarke MD [address] [place] [id number] Phone: tel: fax: [facility] [address] [place] [address] Phone: tel: Referral ID Status Reason Start Date Expiration Date Visits Re quested Visits Authorized [id number] 1 1 Encounter Details Date Type Department Care Team (Late st Contact Info) Description 11/16/2020 1:29 PM EDT Anesthesia Event [facility] [address] [place] [address] Quan Sofia, DO [address] [place] [address] Anesthesia Record Procedure Summary Procedure Name Responsible Anesthesiologist Anesthesia Start Time Anesthesia Stop Time EGD Quan Sofia DO 11/16/20 1329 1405 Events Date Time Event Comment 11/16/2020 1308 1329 An Start 1334 In Room 1335 An Start Data 1340 An Induction The patient was reevaluated immediately before moderate or deep sedation use and before anesthesia induction. 1340 Anesthesia Ready 1350 Proc Start 1355 Proc Fin 1357 Out of Room 1359 an stop data 1400 Handoff to Receiving I compl eted my handoff to the receiving clinician during which we: 1. Identified the patient 2. Identified the responsible provider 3. Reviewed the pertinent medical history 4. Discussed the surgical course 5. Reviewed intra-op anesthesia management and issues during anesthesia 6. Set expectations for post-procedure period 7. Allowed opportunity for questions and acknowledgement of understanding. 1405 An Stop Meds Name Total propofol (Diprivan) injection 10 mg/mL 1 60 mg lidocaine PF (Xylocaine-MPF) 2% 80 mL lactated Ringer's infusion 100 mL * Agents Name N2O Inspired N2O * Blood No blood administrations on file. Lines, Drains, and Airways Type Details Placement Removal Peripheral IV Placement Date: 10/25 06/13; Placement Time: 1109; Catheter Size: 22 G; Orientation: Posterior, Right; Location: Wrist; Site Prep: Alcohol; Local Anesth: None; Inserted by: Tiarra Fisher RN; Insertion Attempts: 2; Patient Tolerance: Tolerated well; Removal Date: 11/20/20; Removal Time: 1500 11/16/20 1109 by Laureen Fisher RN 11/20/20 1500 by Lida Frank documented in this encounter Social History Tobacco [...] Miscellaneous Notes * Anesthesia Postprocedure Evaluation - Abigail Mooney CRNA - 11/16/2020 2:04 PM EDT Patient: Lila Mcnally Anesthesia Type: general Vitals Value Taken Time BP 138/94 11/16/20 1404 Temp 97.3 11/16/20 1404 Pulse 86 11/16/20 1404 Resp 16 11/16/20 1404 SpO2 99 11/16/20 1404 Anesthesia Post Evaluation Patient location during evaluation: PACU Patient participation: complete - patient participated Level of consciousness: awake Pain management: adequate (pain score 0-3) Airway patency: natural airway Cardiovascular status: acceptable Respiratory status: acceptable Hydration status: acceptable No complications documented. * Anesthesia Preprocedure Evaluation - Quan Sofia - 11/16/2020 1:07 PM EDT Patient: Lila Mcnally Procedure Information Date/Time: 11/16/20 1345 Procedure: EGD Location: [facility] Relevant Problems GI (+) Class 1 obesity in adult (+) Duodenal ulcer Other (+) Acute on chronic pancreatitis (CMS/HCC) (+) Anxiety (+) Bipolar depression (CMS/HCC) (+) Fibromyalgia (+) Tobacco abuse Clinical information reviewed: Med Hx Past Medical History: Diagnosis Date ??? Anxiety ??? Depression ??? Fibromyalgia ??? GERD (gastroesophageal reflux disease) ??? Hypertension ??? Nicotine dependence ??? Obesity ??? Pancreatitis Tobacco yes Allergies Allergies Allergen Reactions ??? Morphine And Related Other Burning ??? Tramadol Dizziness and Rash Surg Hx Past Surgical History: Procedure Laterality Date ??? CHOLECYSTECTOMY ??? ERCP Current Outpatient Medications Medication Instructions ??? clotrimazole (Lotrimin) 1 % cream Topical, 2 times daily ??? Latuda 40 MG tablet TAKE 1 TABLET BY MOUTH IN THE EVENING WITH FOOD ??? melatonin 3 mg, Oral, Nightly PRN ??? methocarbamol (ROBAXIN) 500 mg, Oral, 3 times daily ??? naloxone (NARCAN) 4 mg, Nasal, As needed, Call 911. Give 4 mg (1 spray) into one nostril. Repeat every 2-3 minutes as needed, alternating nostrils, until medical assistance arrives. ??? ondansetron (ZOFRAN) 8 mg, Oral, Every 8 hours PRN ??? pancrelipase, Kyh-Kzsz-Eydl, (Creon) 87954-[address] units capsule 1 capsule, Oral, 3 times daily with meals ??? pantoprazole (PROTONIX) 40 mg, Oral, 2 times daily before meals, Do not crush, chew, or split. ??? pregabalin (LYRICA) 200 mg, Oral, 2 times daily ??? sucralfate (CARAFATE) 1 g, Oral, Every 6 hours scheduled ??? venlafaxine XR (Effoxor-XR) 150 MG 24 hr capsule TAKE 1 CAPSULE BY MOUTH ONCE DAILY IN THE MORNING Fam Hx NPO Status Physical Exam Airway Mallampati: II Mouth opening: normal TM distance: <3 FB Neck ROM: full Cardiovascular - normal exam Rhythm: regular Rate: normal Dental - normal exam Pulmonary - normal exam Breath sounds clear to auscultation Neurological Oriented: normal to time, normal to place and normal to person Skin Musculoskeletal Extremities Anesthesia Plan ASA 2 Anesthesia technique(s) discussed with the patient/family: General Anesthesia plan agreed upon was: general Post operative pain planned: discuss with surgical team Induction planned: intravenous Airway management planned: nasal cannula Special technique planned: total intravenous anesthesia Premedication planned: none Anesthetic plan and risks discussed with patient. Use of blood products discussed with patient who. Plan discussed with HOSPICE NURSE. Additional Equipment Requests documented in this encounter Plan of Treatment Not on file documented as of this encounter Visit Diagnoses Not on filedocumented in this encounter Administered Medications Inactive Administered Medications - up to 3 most recent administrations Medication Order MAR Action Action Date Dose Rate Site lactated Ringer's infusion Intravenous, Continuous PRN, Starting on Thu11/16/20 at 1335, Until Thu11/16/20 at 1421, Routine New Bag 11/16/2020 1:35 PM EDT lidocaine PF (Xylocaine) 2 % injection Intravenous, As needed, Starting on Thu11/16/20 at 1340, Until Thu11/16/20 at 1421, Routine, Anesthesia Intraprocedure Given 11/16/2020 1:40 PM EDT 80 mL propofol (Diprivan) injection Intravenous, As needed, Starting on Thu11/16/20 at 1340, Until Thu11/16/20 at 1421, Routine, Anesthesia Intraprocedure Given 11/16/2020 1:53 PM EDT 40 mg Given 11/16/2020 1:48 PM EDT 40 mg Given 11/16/2020 1:45 PM EDT 30 mg documented in this encounter Additional Health Concerns Infection Onset Date Last Indicated Resolved Time Rhinovirus 11/03/2020 11/03/2020 02/03/2021 8:03 PM EST Assessment Noted Time A fall risk assessment has been complete d for the patient 10/18/2020 3:02 PM EDT documented as of this encounter Care Teams Senior Ux Developer Relationship Specialty Start Date End Date Elmo Escobar MD PCP - General 10/18/20 01/05/23 documented as of this encounter
--- OUTSIDE RECORDS SUMMARY | 2024-02-03 15:28 | XMS_ITS | Encounter Summary ---
Author Organization [facility] Address [address] [place] [address] Care Team Providers Care Child Development Associate Teacher Name Role Phone Elmo Escobar MD Primary Care Provider Reason for Referral * Imaging (Routine) - Closed Specialty Diagnoses / Procedures Referred By Susy t Referred To Contact Gastroenterology Diagnoses Recurrent pancreatitis Procedures ERCP w Fluoro; 1 - Grade 1 Claudio Sy PA [address] [place] [address] Phone: tel: fax: Referral ID Status Reason Start Date Expiration Date V isits Requested Visits Authorized [id number] Closed Specialty Services Required 11/21/2020 05/20/2021 1 1 * Imaging (Routine) - Closed Specialty Diagnoses / Procedures Referred By Susy burks Referred To Contact Gastroenterology Diagnoses Recurrent pancreatitis Procedures EUS (Upper) w Celiac Plexus Block, w Fluoro Claudio Sy PA [address] [place] [address] Phone: tel: fax: Referral ID Status Reason Start Date Expiration Date V isits Requested Visits Authorized [id number] Closed Specialty Services Required 11/21/2020 05/20/2021 1 1 Reason for Visit * Imaging (Routine) - Closed Specialty Diagnoses / Procedures Referred By Contmary t Referred To Contact Gastroenterology Diagnoses Recurrent pancreatitis Procedures ERCP w Fluoro; 1 - Grade 1 Claudio Sy PA [address] [facility] [address] [place] [address] Phone: tel: fax: Referral ID Status Reason Start Date Expiration Date V isits Requested Visits Authorized [id number] Closed Specialty Services Required 11/21/2020 05/20/2021 1 1 Encounter Details Date Type Department Care Team (Late st Contact Info) Description 12/04/2020 2:21 PM EDT - 12/04/2020 3:55 PM EDT Hospital Encounter [facility] [address] [place] [address] Satish Marino MD [id number] [place] [address] Recurrent pancreatitis Discharge Disposition: Home or Self [...] Reading Time Taken Comments Blood Pressure 152/98 12/04/2020 5:15 PM EDT Pulse 73 12/04/2020 5:00 PM EDT Temperature 37.5 ??C (99.5 ??F) 12/04/2020 4:05 PM ED T Respiratory Rate 14 12/04/2020 5:00 PM EDT Oxygen Saturation 97% 12/04/2020 5:00 PM EDT Inhaled Oxygen Concentration - - Weight 99.4 kg (219 lb 2.2 oz) 12/04/2020 2:34 P M EDT Height 165.1 cm (5' 5 ) 12/04/2020 2:34 PM EDT Body Mass Index 36.47 12/04/2020 2:34 PM EDT documented in this encounter Discharge Instructions * Discharge Instructions* Sherrill Najera RN - 12/04/2020 2:51 PM EDT Images from the original note were not included. Patient Education Patient Education Anesthesia: General Anesthesia You are watched continuously during your procedure by your anesthesia provider. You???re due to have surgery. During surgery, you???ll be given medicine called anesthesia or anesthetic. This will keep you comfortable and pain-free. Your??anesthesia provider??will use general anesthesia . What is general anesthesia? General anesthesia puts you into a state like deep sleep. It goes into the bloodstream (IV anesthetics), into the lungs (gas anesthetics), or both. You feel nothing during the procedure. You will notremember it. During the procedure, the anesthesia provider monitors you continuously. He or she checks your heart rate and rhythm, blood pressure, breathing, and blood oxygen. ?? IV anesthetics. IV anesthetics are given through an IV line in your arm. They???re often given first. This is so you are asleep before a gas anesthetic is started. Some kinds of IV anesthetics relieve pain. Others relax you. Your doctor will decide which kind is best in your case. ?? Gas anesthetics. Gas anesthetics are breathed into the lungs. They are often used to keep you asleep. They can be given through a face mask or a tube placed in your larynx or trachea (breathing tube) . ? If you have a face mask, your anesthesia provider will most likely place it over your nose and mouth while you???re still awake. You???ll breathe oxygen through the mask as your IV anesthetic is started. Gas anesthetic may be added through the mask. ? If you have a??tube in the larynx or trachea,??it will be inserted into your throat after you???re asleep. Anesthesia tools and medicines You will likely have: ?? IV anesthetics. These are put into an IV line into your bloodstream. ?? Gas anesthetics.??You breathe these??anesthetics??into your lungs, where they pass into your bloodstream. ?? Pulse oximeter. This is a small clip that is attached to??the end of your finger. This measures your blood oxygen level. ?? Electrocardiography leads (electrodes).??These are small sticky pads that are placed??on your chest. They record your heart rate and rhythm. ?? Blood pressure cuff. This reads your blood pressure. Risks and possible complications General anesthesia has some risks. These include: ?? Breathing problems ?? Nausea and vomiting ?? Sore throat or hoarseness (usually temporary) ?? Allergic reaction to the anesthetic ?? Irregular heartbeat (rare) ?? Cardiac arrest (rare) Anesthesia safety ?? Follow all instructions you are given for how long not to eat or drink before your procedure. ?? Be sure your doctor knows what medicines and drugs??you take. This includes hxix-ypa-jscjwbs medicines, herbs, supplements, alcohol or other drugs. You will be asked when those were last taken. ?? Have an adult family member or friend drive you home after the procedure. ?? For the first 24 hours after your surgery: ? Don't drive or use heavy equipment. ? Don't make important decisions or sign legal documents. If important decisions or signing legal documents is necessary during the first 24 hours after surgery, have a trusted family member or spouse act on your behalf. ? Don't drink alcohol. ? Have??a responsible adult??stay with you.??He or she??can watch for problems and help keep you safe. [employer] last reviewed this educational content on 11/23/2018 ?? [id number] [employer]. All rights reserved. This information is not intended as a substitute for professional medical care. Always follow your healthcare professional's instructions. Endoscopy Unit:?? Caring for Yourself after Colonoscopy, Gastroscopy, or ERCP?? The procedure today was performed by : The procedure results were explained by: What precautions do I need to take after my procedure? You will get a medicine that makes you sleep during treatment. It may affect you for the next [address].? [address] or go home alone.??Someone must be with you until you get home. ?? For 24 hours,??do not make legal decisions, drive, or use dangerous equipment. ?? You may continue taking your home medicines unless your doctor tells you otherwise. When can I eat or drink? Your throat may be numb after treatment.??Do not eat or drink until the numbness goes away. This may take up to 1 hour. After that, you may eat as normal. Start with clear liquids and advance to solids. Spicy or greasy foods my increase your chance of nausea due to the medicines you received duringthe procedure. How active can I be? You should move around as you are able. Do your normal activities if you feel you can. Sexual activity is fine unless your doctor tells you otherwise. What should I watch out for? Gas: You may get air in your belly during treatment. This could cause gas or a feeling of fullness.This is normal. If you have hemorrhoids, you may have some rectal discomfort. How do I find out my biopsy results? If you had a biopsy, call the doctor who ordered the procedure. It may take 7-10 days for biopsy results. ?? When should I call the doctor? Call 911 right away or go to the nearest emergency department if you have any of these:? Difficulty breathing ?? Severe pain in the throat ?? Severe pain in the chest or belly ?? Vomiting blood?? Call your doctor, call 911 or go to the nearest emergency department if you have any of these: ?? Vomiting that does not go away ?? Fever of 101??F or higher ?? More than 1 tablespoon of rectal bleeding ?? Redness or tenderness of the IV site that lasts longer than 48 hours ?? Jaundice after an ERCP procedure ?? Any other worrisome symptoms These may be related to a complication and need medical attention. If you do not tell your doctor, the problem may get worse. Our contact information: ?? For??Gastroenterology, call , option #2 ?? For??General Surgery, call ?? For the??General Surgery Endoscopy Resident, call . After hours, weekends, and holidays, please ask for the Fellow or Resident on-call. ?? I give the [facility] permission to??give me the report of this procedure. ?? I have read the information above or it was explained to me, and I fully understand it. ?? I have received information about how tobacco use is bad for my health and on how to quit. Parent or guardian Signature: ?? Date:?? Witness:?? documented in this encounter Medications at Time [...] arrives. 1 each 2 11/06/2020 1 pancrelipase, Bkd-Ssbf-Lbbe, (Creon) [id number] units capsule Take 1 capsule by mouth [...] of this encounter Miscellaneous Notes * Anesthesia PACU Signout - Edenilson Gonzalez MD - 12/04/2020 3:10 PM EDT Patient: Lila Mcnally Anesthesia Type: general Vitals Value Taken Time BP 115/79 12/04/20 1610 Temp 37.5 ??C (99.5 ??F) 12/04/20 1605 Pulse 97 12/04/20 1611 Resp 24 12/04/20 1611 SpO2 100 % 12/04/20 1611 Vitals shown include unvalidated device data. Anesthesia PACU Signout Patient location during evaluation: PACU Level of consciousness: baseline Pain management: adequate (pain score 0-3) Airway patency: natural airway Hydration status: acceptable PONV: none Cardiovascular status: acceptable Respiratory status: acceptable Discharge Disposition: home * Perioperative Nursing Note - Tyler Shore RN - 12/04/2020 3:10 PM EDT Patient complaining of severe abdominal pain. States it's nothing new from her usual pain. No interventions were performed during procedure, only looking. Per Dr. Gonzalez with anesthesia, treated [id number] PO oxycodone. Dr. Marino at bedside. Oral pain medication is ok at this time. Warm blanket applied to abdomen and patient repositioned to her side. Abdomen is soft to touch. * Perioperative Nursing Note - Tyler Shore RN - 12/04/2020 3:10 PM EDT Patient requesting only dilaudid or fentanyl for pain. Dr. Gonzalez with anesthesia at bedside again.Verbal order to treat with IV toradol only. * Perioperative Nursing Note - Tyler Shore RN - 12/04/2020 3:10 PM EDT Patient states she wants to leave. Does not want to wait to talk to Dr Marino. Requested I remove her IV and let her get dressed. I spoke with mother, she states it's the patients anxiety and she always suffers with horrible pain. Patient taken down by wheelchair with mother at side. * H&P - Satish Marino MD - 12/04/2020 3:10 PM EDT Pre-Procedure Evaluation for ENDOSCOPY @TODAY@ 2:38 PM Patient: Lila Mcnally : 1985 Listed procedure in case request: Procedure(s): @ORPROCALLREF@ Pre-procedure diagnosis: abdominal pain; possible pancreatitis Planned procedure: EUS - ERCP Indication type: elective Indication: The indication for this procedure is the same as the pre-procedure diagnosis Patient has significant abdominal pain, as well as possible past history of pancreatitis. Altered LFTs (biliary sludge/stones? SOD? Other?) Comes for EUS-ERCP Past Medical History: Diagnosis Date ??? Anxiety ??? Depression ??? Fibromyalgia ??? GERD (gastroesophageal reflux disease) ??? Hypertension ??? Nicotine dependence ??? Obesity ??? Pancreatitis Patient Active Problem List Diagnosis ??? Class 1 obesity in adult ??? Acute on chronic pancreatitis (CMS/HCC) ??? Bipolar depression (CMS/HCC) ??? Anxiety ??? Fibromyalgia ??? Tobacco abuse ??? Duodenal ulcer ??? Recurrent pancreatitis ??? Abdominal pain, epigastric ??? Choledocholithiasis ??? Good tolerance for activity ??? GERD (gastroesophageal reflux disease) Past Surgical History: Procedure Laterality Date ??? CHOLECYSTECTOMY ??? ERCP ??? ESOPHAGOGASTRODUODENOSCOPY These sections are to be completed on the day of the procedure after the patient is examined. Current Outpatient Medications on File Prior to Encounter Medication Sig Dispense Refill ??? [] acetaminophen (Tylenol) 325 MG tablet Take 2 tablets (650 mg total) by mouth every 6 (six) hours for 10 days. 30 tablet 0 ??? clotrimazole (Lotrimin) 1 % cream Apply topically 2 (two) times a day for 28 days. 12 g 1 ??? diclofenac (Voltaren) 1 % topical gel Place 1 application on the skin 4 (four) times a day. 50 g 0 ??? hydrOXYzine pamoate (Vistaril) 25 MG capsule Take 1 capsule (25 mg total) by mouth every 6 (six) hours if needed for anxiety. 30 capsule 0 ??? lactulose (Chronulac) 10 GM/15ML solution Take 15 mL (10 g total) by mouth 3 (three) times a day if needed (constipation). 473 mL 1 ??? Latuda 40 MG tablet TAKE 1 TABLET BY MOUTH IN THE EVENING WITH FOOD ??? lidocaine (Lidoderm) 5 % patch Apply 2 patches topically 1 (one) time each day at the same time. Remove & discard patch within 12 hours or as directed by MD. (Patient not taking: Reported on 11/30/2020) 60 patch 0 ??? melatonin 3 MG tablet Take 3 [...] until medical assistance arrives.1 each 2 ??? [] ondansetron ODT (Zofran-ODT) 4 MG disintegrating tablet Take 1 tablet (4 mg total) bymouth every 6 (six) hours if needed for nausea or vomiting for up to 7 days. 20 tablet 0 ??? [] oxyCODONE (Roxicodone) 5 MG immediate release tablet Take 1 tablet (5 mg total) by mouth every 4 (four) hours if needed for severe pain for up to 3 days. (Patient taking differently: Take 5 mg by mouth every 6 (six) hours if needed for severe pain. Takes 2 x per day) 18 tablet 0 ??? pancrelipase, Uns-Ujly-Ebdv, (Creon) [id number] units capsule Take 1 capsule by mouth 3 (three) times a day with meals. ??? pantoprazole (ProtoNix) 40 MG EC tablet Take 1 tablet (40 mg total) by mouth 1 (one) time each day before breakfast. Do not crush, chew, or split. 30 tablet 0 ??? polyethylene glycol (Miralax) 17 g packet Take 17 g by mouth 2 (two) times a day. (Patient not taking: Reported on 11/30/2020) 60 packet 0 ??? pregabalin (Lyrica) 300 MG capsule Take 1 capsule (300 mg total) by mouth 2 (two) times a day for 3 days. 6 capsule 0 ??? scopolamine (Transderm-Scop) 1 MG/3DAYS patch [address] 1 patch on the skin every 3rd (third) day. 10 patch 1 ??? sucralfate (Carafate) 1 GM/10ML suspension Take 10 mL (1 g total) by mouth every 6 (six) hours.(Patient not taking: Reported on 11/30/2020) 1200 mL 0 ??? ursodiol (Actigall) 300 MG capsule Take 2 capsules (600 mg total) by mouth 2 (two) times a day.(Patient not taking: Reported on 11/30/2020) 120 capsule 0 ??? venlafaxine XR (Effoxor-XR) 150 MG 24 hr capsule TAKE 1 CAPSULE BY MOUTH ONCE DAILY IN THE MORNING No current facility-administered medications on file prior to encounter. I performed medication review based on the information available at this time. EXAM Abd: Soft, bowel sounds present, nontender Prior to the procedure, I spent about 30 minutes reviewing the medical records and explaining the procedure to the patient. The patient had many excellent questions, which were answered satisfactorily. Type and cross match was not performed. Blood products are not available. ASSESSMENT Team administering sedation is anesthesia This patient has been assessed and is an appropriate candidate. documented in this encounter Plan of Treatment Not on file documented as of this encounter Procedures Procedure Name Priority Date/Time Associated Diagnosis Comments EUS (UPPER) Routine 12/04/2020 3:57 PM EDT Recurrent pancreatitis ERCP Routine 12/04/2020 3:57 PM EDT Recurrent pancreatitis documented in this encounter Results * ERCP w Fluoro; [...] administered medications. Staff Staff Role Obey Looney, CHANDNI Endo Nurse Satish Marino MD Proceduralist Asiya [...] were documented in this log. Findings A bread room hand film of the abdomen was performed. Surgical [...] administered medications. Staff Staff Role Obey Looney, CHANDNI Endo Nurse Satish Marino MD Proceduralist Asiya [...] Date Dose Rate Site ketorolac (Toradol) injection 30 mg 30 mg, Intravenous, Once, 1 dose, On 12/04/20 at 1715, STAT, Recovery(Phase II-Outpatient)/On Unit(Inpatient) Given 12/04/2020 5:09 PM EDT 30 mg oxyCODONE (Roxicodone) immediate release tablet 5 mg 5 mg, Oral, Once, 1 dose, On 12/04/20 at 1645, STAT, Recovery(Phase II-Outpatient)/On Unit(Inpatient) Given 12/04/2020 4:20 PM EDT 5 mg documented in this encounter Additional Health Concerns Infection Onset Date Last Indicated Resolved Time Rhinovirus 11/03/2020 11/03/2020 02/03/2021 8:03 PM EST Assessment Noted Time A fall risk assessment has been complete d for the patient 11/21/2020 2:30 PM EDT documented as of this encounter Care Teams Child Development Associate Teacher Relationship Specialty Start Date End Date Elmo Escobar MD PCP - General 10/18/20 01/05/23 documented as of this encounter
--- OUTSIDE RECORDS SUMMARY | 2024-02-03 15:28 | XMS_ITS | Encounter Summary ---
Author Organization Healthcare Address [address] [place] [address] Care Team Providers Care Court Operations Clerk Name Role Phone Elmo Escobar MD Primary Care Provider [phone] Reason for Visit * Reason Comments Abdominal Pain Encounter Details Date Type Department Care Team (Late st Contact Info) Description 12/04/2020 6:58 PM EDT - 12/04/2020 9:53 PM EDT Emergency [facility] Emergency Department [address] [place] [address] George Martinez MD [address] [place] [address] Pain of upper abdomen (Primary Dx); Nausea and vomiting, intractability of vomiting not specified, unspecified vomiting type Discharge Disposition: Home or [...] Sign Reading Time Taken Comments Blood Pressure 108/69 12/04/2020 9:45 PM EDT Pulse 54 12/04/2020 9:45 PM EDT Temperature 36.4 ??C (97.6 ??F) 12/04/2020 9:45 PM ED T Respiratory Rate 18 12/04/2020 9:45 PM EDT Oxygen Saturation 97% 12/04/2020 9:45 PM EDT Inhaled Oxygen Concentration - - Weight 95.3 kg (210 lb) 12/04/2020 6:50 PM EDT Height - - Body Mass Index 34.95 12/04/2020 2:34 PM EDT documented in this encounter Medications at Time of Discharge clotrimazole (Lotrimin) 1 % cream Apply topically 2 (two) times a day for 28 days. 12 g 1 11/06/2020 12/05/19 diclofenac (Voltaren) 1 % topical gel Place 1 application on the skin 4 (four) times a day. 50 g 11/20/2020 12/21/19 lactulose (Chronulac) 10 GM/15ML solution Take 15 mL (10 g total) by mouth 3 (three) times a day if needed (constipation). 473 mL 1 11/21/2020 12/22/19 lidocaine (Lidoderm) 5 % patch Apply 2 patches topically 1 (one) time each day at the same time. Remove & discard patch within 12 hours or as directed by . 60 patch 11/21/2020 12/22/19 ondansetron ODT (Zofran-ODT) 4 MG disintegrating tablet Take 1 tablet (4 mg total) by mouth every 6 (six) hours if needed for nausea. 12 tablet 12/04/2020 01/04/20 pantoprazole (ProtoNix) 40 MG EC tablet Take 1 tablet (40 mg total) by mouth 1 (one) time each day before breakfast. Do not crush, chew, or split. 30 tablet 11/21/2020 12/22/19 polyethylene glycol (Miralax) 17 g packet Take 17 g by mouth 2 (two) times a day. 60 packet 11/20/2020 12/21/19 promethazine (Phenergan) 12.5 MG suppository Insert 1 suppository (12.5 mg total) into the rectum every 6 (six) hours if needed for nausea or vomiting for up to 7 days. 12 each 12/04/2020 12/12/19 21 scopolamine (Transderm-Scop) 1 MG/3DAYS patch [address] 1 patch on the skin every 3rd (third) day. 10 patch 1 11/21/2020 01/21/20 sucralfate (Carafate) 1 GM/10ML suspension Take 10 mL (1 g total) by mouth every 6 (six) hours. 1200 mL 11/06/2020 12/07/19 ursodiol (Actigall) 300 MG capsule Take 2 capsules (600 mg total) by mouth 2 (two) times a day. 120 capsule 11/20/2020 12/21/19 hydrOXYzine pamoate (Vistaril) 25 MG capsule Take 1 capsule (25 mg total) by mouth every 6 (six) hours if needed for anxiety. 30 capsule 11/20/2020 02/05/20 Latuda 40 MG tablet Take 40 mg by mouth 1 (one) time each day with breakfast. 10/14/2020 03/20/19 23 melatonin 3 MG tablet Take 3 mg by mouth at night if needed for sleep. 02/05/20 methocarbamol (Robaxin) 500 MG tablet Take 500 [...] 1 each 2 11/06/2020 02/11/20 21 pancrelipase, Qnq-Wzjd-Bsxa, (Creon) 15079-32177 units capsule Take 1 capsule by mouth [...] Miscellaneous Notes * ED Provider Notes - Ashley Ashton - 12/04/2020 6:20 PM EDT Images from the original note were not included. HPI Chief Complaint Patient presents with ??? Abdominal Pain Lila Mcnally is a 34 y.o. female who presents to the Emergency Department with complaints of abdominal pain with associated nausea and vomiting. She has a long standing history of abdominal pain and pancreatitis. She was seen by GI today and had a EGD ERCP performed. She noted upon discharge from the hospital she was having upper abdominal pain which since arriving at home has worsened. She notes nausea vomiting x2. No change in bowel habits. No melena, hematochezia or hematemesis. Patient states she does not have pain medication at home, used to be on oxycodone but this was not refilled or represcribed. Denies f/c/d, cp, soa, urinary symptoms or neuro changes. Carlyle Coma Scale Score: 15 Patient History Past [...] Yes Frequency: 4.0 times per week Types: Marijuana, Oxycodone Comment: daily use none Occupational History ??? [...] last month? No Travel History Travel since 11/04/20 No documented travel since 11/04/20 Relevant Domestic Travel History: n/a Immunization History reviewed VACCINE/DOSE DATE Flu 11/21/2019 [...] are negative. Physical Exam ED Triage Vitals [12/04/20 1850] Temp Heart Rate Resp BP 36.6 ??C (97.9 ??F) 56 16 (!) 145/93 SpO2 Temp Source Heart Rate Source Patient Position -- Oral -- -- BP Location FiO2 (%) [...] area and left upper quadrant. There is guarding. Musculoskeletal: Cervical back: Neck supple. Skin: General: Skin is warm and dry. Neurological: General: No focal deficit present. Mental Status: She is alert and oriented to person, place, and time. Psychiatric: Mood and Affect: Mood normal. Behavior: Behavior normal. ED Course & MDM ED Course as of Dec 05 2135 Tue Dec 04, [id number] Lactate: 1.7 1948 WBC(!): 10.44 2025 Lipase(!): 108 2025 Test: Negative 2047 IMPRESSION: ?? No acute findings identified within the chest XR Chest 1 View 2126 IMPRESSION: 1. No significant intra or extrahepatic ductal dilation, or pneumobilia. 2. Mild fat haziness around the common hepatic and extrapancreatic portion of the common bile duct,likely related to procedure earlier today. 3. No other acute findings. 4. Similar appearance of subcutaneous medial right breast mass, measuring 2.4 cm. This is also present on CT obtained on 16 April 2016. Nonetheless, recommend follow-up in mammographic breast clinic to further characterize. CT Abdomen Pelvis w IV Contrast Clinical Impressions as of Dec 05 2135 Pain of upper abdomen Nausea and vomiting, intractability of vomiting not specified, unspecified vomiting type MDM Number of Diagnoses or Management Options Nausea and vomiting, intractability of vomiting not specified, unspecified vomiting type Pain of upper abdomen Diagnosis management comments: Lila Mcnally is a 34 yrs old female presents today for Patient presents with: Abdominal Pain with N/V. Patient VSS. Differential diagnosis of abdominal pain includes, but is notlimited to, AAA, appendicitis, ectopic, torsion, PID, diverticulitis, pancreatitis, gastritis, IBD,cholecystitis, SBO/LBO, mesenteric ischemia, intra-abdominal abscess, and perforated bowel. All of these have been considered. In order to fully explore differential these tests and treatments were ordered. Orders Placed This Encounter XR Chest [address] Abdomen Pelvis w IV Contrast CBC CMP Lipase Lactic acid, venous hCG qualitative Urinalysis with reflex microscopic Insert peripheral IV Medications iohexol (OMNIPaque) 300 MG/ML injection 100 mL (has no administration in time range) sodium chloride 0.9 % infusion - 1,000mL (0 mL Intravenous Stopped 12/04/202118) ondansetron (Zofran) injection 4 mg (4 mg Intravenous Given 12/04/201914) morphine PF 4 mg (4 mg Intravenous Given 12/04/201914) ondansetron (Zofran) injection 4 mg (4 mg Intravenous Given 12/04/201949) iohexol (OMNIPaque) 300 MG/ML injection 100 mL (90 mL Intravenous Given 12/04/202042) morphine PF 4 mg (4 mg Intravenous Given 12/04/202104) Patient VSS entire stay. Labs WNL, mild lipase elevation at 108, expected as to having ERCP today. CXR negative. CT negative for acute. She was po tested here with no further vomiting. We will treat with rx for Phenergan and Zofran. FU with GI otherwise return for worsening or concerns. Patient wasseen by Dr. Martinez who agrees with plan of care. Amount and/or Complexity of Data Reviewed Clinical lab tests: reviewed Tests in the radiology section of CPT??: reviewed Decide to obtain previous medical records or to obtain history from someone other than the patient:yes DANIA Bennett 12/04/202136 Cosigned by George Martinez MD at 12/04/2020 11:04 PM EDT Associated attestation - George Martinez MD - 12/04/2020 11:04 PM EDT I, George Martinez MD, have personally seen and examined the patient independently, reviewed theAPP???s Hx, exam, and MDM and agree with the assessment and plan as written. Attending physical exam reveals a patient in no acute distress with supple neck, lungs clear to auscultation bilaterally, heart in regular rate and rhythm with no murmurs, abdomen soft mild epigastric pain and nondistended, moving all extremities grossly * ED Triage Notes - Andrew Gonzalez, RN - 12/04/2020 6:20 PM EDT Pt with c/o luq abd pain with n/v since last night, worse today. Pt had endoscopy today and has hadworsening pain since. documented in this encounter Plan of Treatment Not on file documented as of this encounter Procedures Procedure Name Priority Date/Time Associated Diagnosis Comments CT ABDOMEN PELVIS W IV CONTRAST STAT 12/04/2020 8:52 PM EDT XR CHEST 1 VIEW STAT 12/04/2020 8:00 PM EDT LACTATE, VENOUS STAT 12/04/2020 7:35 PM EDT CBC W/O DIFFERENTIAL STAT 12/04/2020 7:35 PM EDT TEST QUALITATIVE PLASMA STAT 12/04/2020 7:35 PM EDT LIPASE, PLASMA STAT 12/04/2020 7:35 PM EDT COMPREHENSIVE METABOLIC PANEL, PLASMA STAT 12/04/2020 7:35 PM EDT documented in this encounter Results * CT Abdomen Pelvis w IV Contrast (12/04/2020 8:52 PM EDT) Anatomical Region Laterality Modality Abdomen, Pelvis Computed Tomogra phy Impressions 12/04/2020 9:22 PM EDT 1. No significant intra or extrahepatic ductal dilation, or pneumobilia. 2. Mild fat haziness around the common hepatic and extrapancreatic portion of the common bile duct, likely related to procedure earlier today. 3. No other acute findings. 4. Similar appearance of subcutaneous medial right breast mass, measuring 2.4 cm. This is also present on CT obtained on 16 April 2016. Nonetheless, recommend follow-up in ??mammographic breast clinic to further characterize. CRITICAL RESULT: ?? No. COMMUNICATION: Per this written report. Signed by Dillon Pendleton on ??12/04/2020 9:22 PM Narrative 12/04/2020 9:22 PM EDT Exam/Procedure: CT ABDOMEN PELVIS W IV CONTRAST ordered by ASHLEY ASHTON, [id number] CLINICAL INDICATION: pain after ERCP today. TECHNIQUE: Imaging of the abdomen and pelvis was performed, from lung bases through pubic symphysis, using spiral technique, following administration of IV contrast, Omnipaque 300, 100 mL. Delayed (excretory phase) images were performed through the kidneys. Reformatted images in the coronal and sagittal planes were generated from the axial data set to facilitate diagnostic accuracy. Total DLP (Dose-Length Product): 1026.65 mGy.cm. Please note: The reported value represents the total of one or more individual components during the CT acquisition on this date and at this time, and as such, the same value may appear in more than one CT report depending on the interpreting/reporting physicians. COMPARISON: CT A/P 28 October 2020. FINDINGS: No consolidation or effusion lower chest. Small amount of subpleural atelectasis in the posterobasilar left lower lobe. Similar appearance of subcutaneous medial right breast mass, measuring 2.4 cm. This is also present on CT obtained on 16 April 2016. No free abdominal gas. No free pelvic or abdominal fluid. Cholecystectomy. No significant intra or extrahepatic biliary ductal dilation, or pneumobilia appreciated. Fat haziness around the common hepatic and extrapancreatic portion of the common bile duct, likely procedure related. No adjacent fluid collections. No hepatic parenchymal lesions. The spleen, adrenals, pancreas, and kidneys are without acute abnormality. The stomach is not significantly distended. No perigastric or periduodenal inflammation. No evidence of small bowel obstruction. Small amount of contrast from the procedure earlier today is seen in the distal small bowel. No acute colonic findings. Appendix not inflamed. Retroflexed uterus which does not appear to be enlarged. 2.2 cm cyst versus dominant follicle in the right ovary, without adjacent inflammation. No inflammation of the perivesical fat. Increased density of contents of urinary bladder lumen likely from contrast from previous examination earlier in the day. No concerning adenopathy. Normal caliber abdominal aorta, visceral and pelvic arteries are patent. Portal vein, SMV, and splenic vein patent. No acute body wall findings. No suspicious osseous lesions or acute findings. Procedure Note Dillon Pendleton MD - 12/04/2020 Exam/Procedure: CT ABDOMEN PELVIS W IV CONTRAST ordered by ASHLEY VIRK, [id number] CLINICAL INDICATION: pain after ERCP today. TECHNIQUE: Imaging of the abdomen and pelvis was performed, from lung bases throughpubic symphysis, using spiral technique, following administration of IVcontrast, Omnipaque 300, 100 mL. Delayed (excretory phase) images wereperformed through the kidneys. Reformatted images in the coronal andsagittal planes were generated from the axial data set to facilitatediagnostic accuracy. Total DLP (Dose-Length Product): 1026.65 mGy.cm. Please note: The reportedvalue represents the total of one or more individual components during theCT acquisition on this date and at this time, and as such, the same valuemay appear in more than one CT report depending on theinterpreting/reporting physicians. COMPARISON: CT A/P 28 October 2020. FINDINGS: No consolidation or effusion lower chest. Small amount of subpleuralatelectasis in the posterobasilar left lower lobe. Similar appearance ofsubcutaneous medial right breast mass, measuring 2.4 cm. This is alsopresent on CT obtained on 16 April 2016. No free abdominal gas. No free pelvic or abdominal fluid. Cholecystectomy. No significant intra or extrahepatic biliary ductaldilation, or pneumobilia appreciated. Fat haziness around the common hepatic and extrapancreatic portion of thecommon bile duct, likely procedure related. No adjacent fluid collections.No hepatic parenchymal lesions. The spleen, adrenals, pancreas, andkidneys are without acute abnormality. The stomach is not significantly distended. No perigastric or periduodenalinflammation. No evidence of small bowel obstruction. Small amount ofcontrast from the procedure earlier today is seen in the distal smallbowel. No acute colonic findings. Appendix not inflamed. Retroflexed uterus which does not appear to be enlarged. 2.2 cm cystversus dominant follicle in the right ovary, without adjacentinflammation. No inflammation of the perivesical fat. Increased density ofcontents of urinary bladder lumen likely from contrast from previousexamination earlier in the day. No concerning adenopathy. Normal caliber abdominal aorta, visceral and pelvic arteries are patent.Portal vein, SMV, and splenic vein patent. No acute body wall findings. No suspicious osseous lesions or acute findings. IMPRESSION: 1. No significant intra or extrahepatic ductal dilation, or pneumobilia. 2. Mild fat haziness around the common hepatic and extrapancreatic portionof the common bile duct, likely related to procedure earlier today. 3. No other acute findings. 4. Similar appearance of subcutaneous medial right breast mass, measuring2.4 cm. This is also present on CT obtained on 16 April 2016.Nonetheless, recommend follow-up in mammographic breast clinic to furthercharacterize. CRITICAL RESULT: No. COMMUNICATION: Per this written report. Signed by Dillon Pendleton on 12/04/2020 9:22 PM us Ashley NAJERA IMG CT PROCEDURES Final Resu lt * XR Chest 1 View (12/04/2020 8:00 PM EDT) Anatomical Region Laterality Modality Chest Digital Radiogra phy Impressions 12/04/2020 8:48 PM EDT No acute findings identified within the chest. CRITICAL RESULT: ?? No. COMMUNICATION: Per this written report. Dictated by Lee Rosa on 12/04/2020 8:28 PM By electronically signing this report, I, the attending physician, attest that I have personally reviewed the images/data for the above examination(s) and agree with the final edited report. Signed by Liv Rojas on ??12/04/2020 8:48 PM Narrative 12/04/2020 8:48 PM EDT Exam/Procedure: XR CHEST 1 VIEW ordered by ASHLEY ASHTON, [id number] CLINICAL INDICATION: abdominal pain, after ERCP today TECHNIQUE: XR CHEST 1 VIEW COMPARISON: None. FINDINGS: No focal consolidation or airspace disease. Heart and mediastinal contours are within normal limits. No pneumothorax. ??No pleural effusion. No acute osseous findings. No free subdiaphragmatic air identified. Procedure Note Liv Rojas MD - 12/04/2020 Exam/Procedure: XR CHEST 1 VIEW ordered by ASHLEY ASHTON, [id number] CLINICAL INDICATION: abdominal pain, after ERCP today TECHNIQUE: XR CHEST 1 VIEW COMPARISON: None. FINDINGS: No focal consolidation or airspace disease. Heart and mediastinal contoursare within normal limits. No pneumothorax. No pleural effusion. No acuteosseous findings. No free subdiaphragmatic air identified. IMPRESSION: No acute findings identified within the chest. CRITICAL RESULT: No. COMMUNICATION: Per this written report. Dictated by Lee Rosa on 12/04/2020 8:28 PM By electronically signing this report, I, the attending physician, jemat I have personally reviewed the images/data for the aboveexamination(s) and agree with the final edited report. Signed by Liv Rojas on 12/04/2020 8:48 PM us Ashley NAJERA IMG XR PROCEDURES Final Resu lt * hCG qualitative (12/04/2020 7:35 PM EDT) Pathologist [facility] Test Negative Negative 12/04/2020 8:21 PM EDT [facility] Blood Venous blood specimen / Unknown Venipuncture / Unknown 12/04/2020 7:35 PM EDT 12/04/2020 7:44 PM EDT Narrative [facility] - 12/04/2020 8:21 PM EDT Reference Range: Males and non- females: Negative. us Ashley NAJERA LAB BLOOD ORDERABLES Final R esult [facility] [address] [place] [id number] * Lactic acid, venous (12/04/2020 7:35 PM EDT) Pathologist [facility] Lactate, Venous, Whole Blood 1.7 0.5 - 2.2 mmol/L LAB HEMATOLOGY METHOD 12/04/2020 7:48 PM EDT [facility] Blood Venous blood specimen / Unknown Venipuncture / Unknown 12/04/2020 7:35 PM EDT 12/04/2020 7:43 PM EDT us Ashley NAJERA LAB BLOOD ORDERABLES Final R esult Performing Organization Address City/[facility]/ZIP Co de Phone Number [facility]ALTH[facility] [address] [place] [address] * (ABNORMAL) Lipase (12/04/2020 7:35 PM EDT) Lipase, Plasma 108(H) 19 - 63 U/L 12/04/2020 8:21 PM EDT [facility] Blood Venous blood specimen / Unknown Venipuncture / Unknown 12/04/2020 7:35 PM EDT 12/04/2020 7:44 PM EDT Ashley NAJERA LAB BLOOD ORDERABLES Final [facility] Performing Organization Address [facility]/ZIP Co de Phone Number [facility]ARE [facility] [address] [place] [address] * (ABNORMAL) CMP (12/04/2020 7:35 PM EDT) Glucose, Plasma 86 74 - 99 mg/dL 12/04/2020 8:21 PM EDT [facility] BUN, Plasma 9 7 - 21 mg/dL 12/04/2020 8:21 PM EDT [facility] Creatinine, Plasma 0.64 0.60 - 1.10 mg/dL 12/04/2020 8:21 PM EDT [facility] BUN/Creatinine Ratio 14 12/04/2020 8:21 PM EDT [facility] Sodium, Plasma 139 136 - 145 mmol/L 12/04/2020 8:21 PM EDT [facility] Potassium, Plasma 4.1 3.7 - 4.8 mmol/L 12/04/2020 8:21 PM EDT [facility] Chloride, Plasma 102 97 - 107 mmol/L 12/04/2020 8:21 PM EDT [facility] CO2, Plasma 25 22 - 29 mmol/L 12/04/2020 8:21 PM EDT [facility] Anion Gap 12 6 - 16 mmol/L 12/04/2020 8:21 PM EDT [facility] Total Calcium, Plasma 8.7(L) 8.9 - 10.2 mg/dL 12/04/2020 8:21 PM EDT [facility] Total Protein 6.7 6.3 - 7.9 g/dL 12/04/2020 8:21 PM EDT [facility] Albumin, Plasma 4.0 3.5 - 5.2 g/dL 12/04/2020 8:21 PM EDT [facility] AST, Plasma 48(H) 11 - 32 U/L 12/04/2020 8:21 PM EDT [facility] ALT, Plasma 35(H) 8 - 33 U/L 12/04/2020 8:21 PM EDT [facility] Alkaline Phosphatase, Plasma 113(H) 35 - 104 U/L 12/04/2020 8:21 PM EDT [facility] Total Bilirubin, Plasma 0.3 0.2 - 1.1 mg/dL 12/04/2020 8:21 PM EDT [facility] eGFR >60 >60 mL/min/1.7 3m*2 12/04/2020 8:21 PM EDT [facility] Comment:eGFR = estimated GFR ; eGFR units = mL/min/1.73 sq meters Chronic Kidney Disease is considered if eGFR <60 mL/min/1.73 sq meters Kidney failure is considered if eGFR is <15 mL/min/1.73 sq meters. eGFR assumes steady state plasma creatinine concentration; not applicable if renal function is rapidly changing or patient is on dialysis. eGFR, if AFR/AM >60 >60 mL/min/1.7 3m*2 12/04/2020 8:21 PM EDT [facility] Comment:eGFR = estimated GFR ; [...] blood specimen / Unknown Venipuncture / Unknown 12/04/2020 7:35 PM EDT 12/04/2020 7:44 PM EDT us Ashley NAJERA LAB BLOOD ORDERABLES Final R esult [facility] [address] [place] [address] * (ABNORMAL) CBC (12/04/2020 7:35 PM EDT) WBC Count 10.44(H) 3.70 - 10.30 10*3/uL LAB HEMATOLOGY METHOD 12/04/2020 7:47 PM EDT [facility] RBC Count 4.24 3.90 - 5.20 10*6/uL LAB HEMATOLOGY METHOD 12/04/2020 7:47 PM EDT [facility] HGB 12.3 11.2 - 15.7 g/dL LAB HEMATOLOGY METHOD 12/04/2020 7:47 PM EDT [facility] HCT 37.3 34.0 - 45.0 % LAB HEMATOLOGY METHOD 12/04/2020 7:47 PM EDT [facility] Platelet Count 236 155 - 369 10*3/uL LAB HEMATOLOGY METHOD 12/04/2020 7:47 PM EDT [facility] MCV 88 79 - 98 fL LAB HEMATOLOGY METHOD 12/04/2020 7:47 PM EDT [facility] MCH 29.0 26.0 - 32.0 pg LAB HEMATOLOGY METHOD 12/04/2020 7:47 PM EDT [facility] MCHC 33.0 30.7 - 35.5 g/dL LAB HEMATOLOGY METHOD 12/04/2020 7:47 PM EDT [facility] RDW 14.0 11.5 - 14.5 % LAB HEMATOLOGY METHOD 12/04/2020 7:47 PM EDT [facility] MPV 9.4 8.8 - 12.5 fL LAB HEMATOLOGY METHOD 12/04/2020 7:47 PM EDT [facility] nRBC 0.0 <=0.0 per 100 WBCs LAB HEMATOLOGY METHOD 12/04/2020 7:47 PM EDT [facility] Blood Venous blood specimen / Unknown Venipuncture / Unknown 12/04/2020 7:35 PM EDT 12/04/2020 7:44 PM EDT us Ashley NAJERA LAB BLOOD ORDERABLES Final R esult [facility] [address] [place] [address] documented in this encounter Visit Diagnoses Diagnosis Pain of upper abdomen- Primary Nausea and vomiting, intractability of vomiting not specified, unspecified vomiting type documented in this encounter Administered Medications Inactive Administered Medications - up to 3 most recent administrations Medication Order MAR Action Action Date Dose Rate Site iohexol (OMNIPaque) 300 MG/ML injection 100 mL 100 mL, Intravenous, Once in imaging, 1 dose, Starting on 12/04/20 at 2023, Until 12/04/20 at 2042, Routine, Imaging Protocol Orders Given 12/04/2020 8:43 PM EDT 90 mL iohexol (OMNIPaque) 300 MG/ML injection 100 mL 100 mL, Intravenous, Once in imaging, 1 dose, Starting on e 12/04/20 at 2042, Until 12/04/20 at 2353, Routine, Imaging Protocol Orders morphine PF 4 mg 4 mg, Intravenous, Once, 1 dose, On 12/04/20 at 1915, STAT Given 12/04/2020 7:15 PM EDT 4 mg morphine PF 4 mg 4 mg, Intravenous, Once, 1 dose, On 12/04/20 at 2105, STAT Given 12/04/2020 9:05 PM EDT 4 mg ondansetron (Zofran) injection 4 mg 4 mg, Intravenous, Once, 1 dose, On 12/04/20 at 1915, STAT Given 12/04/2020 7:15 PM EDT 4 mg ondansetron (Zofran) injection 4 mg 4 mg, Intravenous, Once, 1 dose, On 12/04/20 at 1950, STAT Given 12/04/2020 7:50 PM EDT 4 mg sodium chloride 0.9 % infusion - 1,000mL 1,000 mL, Intravenous, Once, 1 dose, On 12/04/20 at 1915, STAT New Bag 12/04/2020 7:15 PM EDT 1,000 mL documented in this encounter Active and Recently Administered Medications Times are shown in EDT. Scheduled Medication Order 12/02/2020 12/03/2020 12/04/2020 iohexol (OMNIPaque) 300 MG/ML injection 100 mL (COMPLETED) 100 mL, Intravenous, Once in imaging, 1 dose, Starting on 12/04/20 at 2023, Until 12/04/20 at 2042, Routine, Imaging Protocol Orders 2042 (Given - Provid er: Rubens Ellis, ARRT) iohexol (OMNIPaque) 300 MG/ML injection 100 mL 100 mL, Intravenous, Once in imaging, 1 dose, Starting on Thu12/04/20 at 2042, Until Thu12/04/20 at 2353, Routine, Imaging Protocol Orders morphine PF 4 mg (COMPLETED) 4 mg, Intravenous, Once, 1 dose, On Thu12/04/20 at 1915, STAT 1915 (Given - Provid er: Sonja Dalal RN) morphine PF 4 mg (COMPLETED) 4 mg, Intravenous, Once, 1 dose, On Thu12/04/20 at 2105, STAT 210 (Given - Provid er: Sonja Dalal RN) ondansetron (Zofran) injection 4 mg (COMPLETED) 4 mg, Intravenous, Once, 1 dose, On Thu12/04/20 at 1915, STAT 1915 (Given - Provid er: Sonja Dalal RN) ondansetron (Zofran) injection 4 mg (COMPLETED) 4 mg, Intravenous, Once, 1 dose, On Thu12/04/20 at 1950, STAT 1950 (Given - Provid er: Sonja Dalal RN) sodium chloride 0.9 % infusion - 1,000mL (COMPLETED) 1,000 mL, Intravenous, Once, 1 dose, On Thu12/04/20 at 1915, STAT 1915 (New Bag - Prov ider: Sonja Dalal RN)2118 (Stopped - Provider: Sonja Dalal RN) documented in this encounter Additional Health Concerns Infection Onset Date Last Indicated Resolved Time Rhinovirus 11/03/2020 11/03/2020 02/03/2021 8:03 PM EST Assessment Noted Time A fall risk assessment has been complete d for the patient 11/21/2020 2:30 PM EDT documented as of this encounter Care Teams Court Operations Clerk Relationship Specialty Start Date End Date Elmo Escobar MD PCP - General 10/18/20 01/05/23 documented as of this encounter
--- OUTSIDE RECORDS SUMMARY | 2024-02-03 15:28 | XMS_ITS | Encounter Summary ---
Author Organization [facility] Address [address] [place] [address] Care Team Providers Care Dermatology Teacher Name Role Phone Elmo Escobar MD Primary Care Provider [phone] Encounter Details Date Type Department Care Team (Late st Contact Info) Description 11/27/2020 Orders Only [facility] [address] [place] [address] Leta Heaton, CLEANING CUSTODIAN [address] [address] Encounter for preprocedure screening laboratory testing for COVID-19 (Primary Dx) Social History Tobacco Use Types Packs/Day Years [...] documented as of this encounter Results * SARS CoV-2/COVID-19 by PCR (11/30/2020 10:57 AM EDT) SARS CoV-2/COVID-1 9 RNA PCR Result Not Detected Not Detected 11/30/2020 9:40 PM EDT [facility] Swab Oropharyngeal structure / Unknown Non-blood Collection / Unknown 11/30/2020 10:57 AM EDT 11/30/2020 10:57 AM EDT Narrative [facility] - 11/30/2020 9:40 PM EDT This assay is for in vitro diagnostic use under FDA emergency use authorization only. Negative results do not preclude infection with the SARS CoV-2 virus and should not be the sole basis of a patient treatment/management or public health decision. Follow up testing should be performed according to the current CDC recommendations. This test was performed using the Monitor My Meds M2000 SARS CoV-2 test, a qualitative PCR-based assay. The limit of detection (LoD) for this assay is 100 copies/mL. Negative results should be considered presumptive and do not preclude current or future infection obtained through community transmission or other exposures. Negative results must be considered in the context of an individual's recent exposures, history, presence of clinical signs and symptoms consistent with COVID-19. Eric De La Rosa MD LAB MICROBIOLOGY - GENERAL O RDERABLES Final Result Performing Organization Address City/State/[facility] Co de Phone Number [facility] [address] [place] [address] documented in this encounter Visit Diagnoses Diagnosis Encounter for preprocedure screening laboratory testing for COVID-19- Primary documented in this encounter Additional Health Concerns Infection Onset Date Last Indicated Resolved Time Rhinovirus 11/03/2020 11/03/2020 02/03/2021 8:03 PM EST Assessment Noted Time A fall risk assessment has been complete d for the patient 11/21/2020 2:30 PM EDT documented as of this encounter Care Teams Dermatology Teacher Relationship Specialty Start Date End Date Elmo Escobar MD PCP - General 10/18/20 01/05/23 documented as of this encounter
--- OUTSIDE RECORDS SUMMARY | 2024-02-03 15:29 | XMS_ITS | Encounter Summary ---
Author Organization Healthcare Address [address] [place] [address] Care Team Providers Care Riding Teacher Name Role Phone Elmo Escobar MD Primary Care Provider [phone] Reason for Visit * Auth/Cert Specialty Diagnoses / Procedures Referred By Susy t Referred To Contact Diagnoses Epigastric pain Javier Jimenez MD [address] [place] [address] Phone: tel: fax: [facility] [address] [place] [address] Phone: tel: Referral ID Status Reason Start Date Expiration Date Visits Re quested Visits Authorized [id number] 1 1 Encounter Details Date Type Department Care Team (Late st Contact Info) Description 11/03/2020 5:50 PM EDT Ancillary Procedure IV TEAM [address] [facility], 2nd Floor, [address] [place] [id number] Social History Tobacco Use Types Packs/Day Years [...] have Coronavirus / COVID-19? No / Unsure 10/21/2020 3:37 PM EDT documented as of this encounter Plan of Treatment Not on file documented as of this encounter Procedures Procedure Name Priority Date/Time Associated Diagnosis Comments US GUIDED IV INSERTION Routine 11/03/2020 5:44 PM EDT documented in this encounter Results * US Guided IV Insertion (11/03/2020 5:44 PM EDT) Narrative SYSTEMGENERATED, 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 - 11/03/2020 5:44 PM EDT These images were captured for the placement of an US-guided IV or PICC line placement. us Dipika Pruett MD IMG US PROCEDURES Final Resul t documented in this encounter Visit Diagnoses Not on filedocumented in this encounter Additional Health Concerns Infection Onset Date Last Indicated Resolved Time Respiratory Rule-Out 11/03/2020 11/03/2020 021 6:52 PM EDT Assessment Noted Time A fall risk assessment has been complete d for the patient 10/18/2020 3:02 PM EDT documented as of this encounter Care Teams Riding Teacher Relationship Specialty Start Date End Date Elmo Escobar MD PCP - General 10/18/20 01/05/23 documented as of this encounter
--- OUTSIDE RECORDS SUMMARY | 2024-02-03 15:29 | XMS_ITS | Encounter Summary ---
Author Organization Healthcare Address [address] [place] [address] Care Team Providers Care Strickler Attendant Name Role Phone Elmo Escobar MD Primary Care Provider [phone] Reason for Visit * Auth/Cert Specialty Diagnoses / Procedures Referred By Susy t Referred To Contact Diagnoses Epigastric pain Javier Jimenez MD [address] [place] [address] Phone: tel: fax: [facility] [address] [place] [address] Phone: tel: Referral ID Status Reason Start Date Expiration Date Visits Re quested Visits Authorized [id number] 1 1 Encounter Details Date Type Department Care Team (Late st Contact Info) Description 11/04/2020 5:00 PM EDT Ancillary Procedure IV TEAM [address] [facility], 2nd Floor, [address] [place] [id number] Social History Tobacco Use Types Packs/Day Years [...] Diagnosis Comments US GUIDED IV INSERTION Routine 11/04/2020 4:58 PM EDT documented in this encounter Results * US Guided IV Insertion (11/04/2020 4:58 PM EDT) Narrative SYSTEMGENERATED, 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 - 11/04/2020 4:58 PM EDT These images were captured for the placement of an US-guided IV or PICC line placement. us Dipika Purett MD IMG US PROCEDURES Final Resul t documented in this encounter Visit Diagnoses Not on filedocumented in this encounter Additional Health Concerns Infection Onset Date Last Indicated Resolved Time Rhinovirus 11/03/2020 11/03/2020 02/03/2021 8:03 PM EST Assessment Noted Time A fall risk assessment has been complete d for the patient 10/18/2020 3:02 PM EDT documented as of this encounter Care Teams Strickler Attendant Relationship Specialty Start Date End Date Elmo Escobar MD PCP - General 10/18/20 01/05/23 documented as of this encounter
--- OUTSIDE RECORDS SUMMARY | 2024-02-03 15:29 | XMS_ITS | Encounter Summary ---
Author Organization Healthcare Address [address] [place] [address] Care Team Providers Care Road Mechanic Name Role Phone Elmo Escobar MD Primary Care Provider [phone] Reason for Visit * Auth/Cert Specialty Diagnoses / Procedures Referred By Susy t Referred To Contact Diagnoses Epigastric pain Javier Jimenez MD [address] [place] [address] Phone: tel: fax: [facility] [address] [place] [address] Phone: tel: Referral ID Status Reason Start Date Expiration Date Visits Re quested Visits Authorized [id number] 1 1 Encounter Details Date Type Department Care Team (Late st Contact Info) Description 11/03/2020 5:45 PM EDT Ancillary Procedure IV TEAM [address] [facility], 2nd Floor, [address] [place] [phone] Social History Tobacco Use Types Packs/Day Years [...] Comments US GUIDED IV INSERTION Routine 11/03/2020 5:41 PM EDT documented in this encounter Results * US Guided IV Insertion (11/03/2020 5:41 PM EDT) Narrative SYSTEMGENERATED, 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 - 11/03/2020 5:41 PM EDT These images were captured for [...] documented as of this encounter Care Teams Road Mechanic Relationship Specialty Start Date End Date Elmo Escobar MD PCP - General 10/18/20 01/05/23 documented as of this encounter
--- OUTSIDE RECORDS SUMMARY | 2024-02-03 15:29 | XMS_ITS | Encounter Summary ---
Author Organization Healthcare Address [address] [place] [address] Care Team Providers Care Head Of Acquisitions Name Role Phone Elmo Escobar MD Primary Care Provider [phone] Reason for Visit * Reason Onset Date Comments Request For Order(s) 10/26/2020 Encounter Details Date Type Department Care Team ([facility] st Contact Info) Description 10/26/2020 Telephone PFE SCHEDULING [address] [place] [address] Claudio Sy PA [address] [facility] [address] [place] [address] Request For Order(s) Social History Tobacco Use Types Packs/Day Years [...] encounter Miscellaneous Notes * Telephone Encounter - Vanita English MA - 10/26/2020 3:28 PM EDT Patient mother called requesting a call back do discuss treatment. Patient is inpatient at [facility]. * Telephone Encounter - Citlali Hernandez - 10/26/2020 8:36 AM EDT Patient Phone Message Reason for Call: PT has been in hospital IP at [facility] since 10/19. Please contact PT and discuss and treat while there. Best contact number and optimal time of day to reach caller: [phone] Note: Please do not reply to this message. Follow-up communication and further actions as a result of this message need to be communicated with the patient directly, if the patient is not active onMyChart. If the patient is active on MyChart, they will receive notification of the communication/outcome via [employer]. documented in this encounter Plan of Treatment Not on file documented as of this encounter Visit Diagnoses Not on filedocumented in this encounter Additional Health Concerns Assessment Noted Time A fall risk assessment has been complete d for the patient 10/18/2020 3:02 PM EDT documented as of this encounter Care Teams Head Of Acquisitions Relationship Specialty Start Date End Date Elmo Escobar MD PCP - General 10/18/20 01/05/23 documented as of this encounter
--- OUTSIDE RECORDS SUMMARY | 2024-02-03 15:29 | XMS_ITS | Encounter Summary ---
Author Organization [facility] Address [address] [place] [address] Care Team Providers Care Radar Technician Name Role Phone Elmo Escobar MD Primary Care Provider [phone] Encounter Details Date Type Department Care Team (Latest Contact Info) Description 10/21/2020 Travel Social History Tobacco Use Types Packs/Day Years Used Date Smoking Tobacco: Every Day Cigarettes Smokeless Tobacco: Never Alcohol Use Standard Drinks/Week Comments Yes 0 (1 standard drink = 0.6 oz pure alcohol) Alcoholic Drinks/day: Minimum alcohol consumption PHQ-2 Answer Date Recorded Patient Health Questionnaire-2 Score 2 10/18/2020 Comments Unknown Sex and Gender Information Value [...] documented as of this encounter Care Teams Radar Technician Relationship Specialty Start Date End Date Elmo Escobar MD PCP - General 10/18/20 01/05/23 documented as of this encounter
--- OUTSIDE RECORDS SUMMARY | 2024-02-03 15:29 | XMS_ITS | Encounter Summary ---
Author Organization Healthcare Address [address] [place] [address] Care Team Providers Care Shank Tapper Name Role Phone Elmo Escobar MD Primary Care Provider [phone] Reason for Visit * Auth/Cert Specialty Diagnoses / Procedures Referred By Contmary t Referred To Contact Diagnoses Epigastric pain Javier Jimenez MD [address] [place] [address] Phone: tel: fax: [facility] [address] [place] [address] Phone: tel: Referral ID Status Reason Start Date Expiration Date Visits Re quested Visits Authorized [id number] 1 1 Encounter Details Date Type Department Care Team (Late Contact Info) Description 10/22/2020 3:31 PM EDT Anesthesia Event [facility] [address] [place] [address] Amanda Stout DO [address] [place] [address] Anesthesia Record Procedure Summary Procedure Name Responsible Anesthesiologist Anesthesia Start Time Anesthesia Stop Time EGD Amanda Stout DO 10/22/20 1531 1 1600 Events Date Time Event Comment 10/22/2020 1435 1531 An Start 1536 In Room 1536 An Start Data 1540 An Induction The patient was reevaluated immediately before moderate or deep sedation use and before anesthesia induction. 1541 Anesthesia Ready 1542 Proc Start 1556 Proc Fin 1556 an stop data 1557 Out of Room 1600 Handoff to Receiving I compl eted my handoff to the receiving clinician during which we: 1. Identified the patient 2. Identified the responsible provider 3. Reviewed the pertinent medical history 4. Discussed the surgical course 5. Reviewed intra-op anesthesia management and issues during anesthesia 6. Set expectations for post-procedure period 7. Allowed opportunity for questions and acknowledgement of understanding. 1600 An Stop Meds Name Total propofol (Diprivan) injection 10 mg/mL 2 00 mg lidocaine PF (Xylocaine-MPF) 2% 80 mg lactated Ringer's infusion 200 mL * Agents Name N2O Inspired N2O * Blood No blood administrations on file. Lines, Drains, and Airways No LDAs on file. documented in this encounter Social History Tobacco [...] Miscellaneous Notes * Anesthesia Postprocedure Evaluation - Jsasi Humphreys CRNA - 10/22/2020 4:00 PM EDT Patient: Lila Mcnally Anesthesia Type: general Vitals Value Taken Time BP 126/84 10/22/20 1600 Temp 97.3 10/22/20 1600 Pulse 71 10/22/20 1600 Resp 12 10/22/20 1600 SpO2 100 10/22/20 1600 Anesthesia Post Evaluation Patient location during evaluation: PACU Patient participation: complete - patient participated Level of consciousness: awake Pain management: adequate (pain score 0-3) Airway patency: natural airway Cardiovascular status: acceptable Respiratory status: acceptable Hydration status: acceptable No complications documented. * Anesthesia Preprocedure Evaluation - StoutAmanda anderson Tato - 10/22/2020 2:26 PM EDT Patient: Lila Mcnally Procedure Information Date/Time: 10/22/20 2474 Scheduled providers: Joel Frey MD Procedure: EGD Location: [facility] Relevant Problems GI (+) Class 1 obesity in adult (+) Coffee ground emesis (+) Duodenal ulcer Past Medical History: Diagnosis Date ??? Anxiety ??? Depression ??? Fibromyalgia ??? GERD (gastroesophageal reflux disease) ??? Hypertension ??? Nicotine dependence ??? Obesity ??? Pancreatitis Past Surgical History: Procedure Laterality Date ??? CHOLECYSTECTOMY Allergies Allergen Reactions ??? Morphine And Related Other Burning ??? Tramadol Dizziness and Rash Current Outpatient Medications Medication Instructions ??? HYDROcodone-acetaminophen (Leoma) 5-325 MG tablet 1 tablet, Oral, Every 8 hours ??? Latuda 40 MG tablet TAKE 1 TABLET BY MOUTH IN THE EVENING WITH FOOD ??? methocarbamol (ROBAXIN) 500 mg, Oral, 3 times daily RT ??? omeprazole (PRILOSEC) 40 mg, Oral, Daily before breakfast, Do not crush or chew. ??? ondansetron (ZOFRAN) 8 mg, Oral, Every 8 hours PRN ??? pancrelipase, Njc-Ihvv-Rgqz, (Creon) [address] units capsule 1 capsule, Oral, 3 times daily with meals ??? pregabalin (LYRICA) 200 mg, Oral, 2 times daily ??? promethazine (PHENERGAN) 25 mg, Oral, Every 6 hours PRN ??? venlafaxine XR (Effoxor-XR) 150 MG 24 hr capsule TAKE 1 CAPSULE BY MOUTH ONCE DAILY IN THE MORNING Clinical information reviewed: Med Hx Tobacco Allergies Problems Surg Hx Fam Hx Soc Hx NPO Status Physical Exam Airway Mallampati: [...] Extremities -normal exam Anesthesia Plan ASA 3 Anesthesia technique(s) discussed with the patient/family: General Anesthesia plan agreed upon was: general (Ga-tiva) Induction planned: intravenous Airway management planned: nasal cannula Premedication planned: midazolam Anesthetic plan and risks discussed with patient. Use of blood products discussed with patient who. Plan discussed with IMPORT/EXPORT AGENT. Additional Equipment Requests documented in this encounter Plan of Treatment Not on file documented as of this encounter Visit Diagnoses Not on filedocumented in this encounter Administered Medications Inactive Administered Medications - up to 3 most recent administrations Medication Order MAR Action Action Date Dose Rate Site lactated Ringer's infusion 100 mL/hr, Intravenous, Continuous, Starting on Thu10/21/20 at 2045, Until Thu10/22/20 at 2320, Routine New Bag 10/22/2020 8:17 PM EDT 100 mL/hr 100 mL /hr Restarted 10/22/2020 3:40 PM EDT Continued by Anesthesia 10/22/2020 3:31 PM EDT 100 mL/hr lidocaine PF (Xylocaine) 2 % injection Intravenous, As needed, Starting on Thu10/22/20 at 1540, Until Thu10/22/20 at 1600, Routine, Anesthesia Intraprocedure Given 10/22/2020 3:40 PM EDT 80 mg propofol (Diprivan) injection Intravenous, As needed, Starting on Thu10/22/20 at 1540, Until Thu10/22/20 at 1600, Routine, Anesthesia Intraprocedure Given 10/22/2020 3:53 PM EDT 20 mg Given 10/22/2020 3:50 PM EDT 20 mg Given 10/22/2020 3:47 PM EDT 20 mg documented in this encounter Additional Health Concerns Assessment Noted Time A fall risk assessment has been complete d for the patient 10/18/2020 3:02 PM EDT documented as of this encounter Care Teams Shank Tapper Relationship Specialty Start Date End Date Elmo Escobar MD PCP - General 10/18/20 01/05/23 documented as of this encounter
--- OUTSIDE RECORDS SUMMARY | 2024-02-03 15:29 | XMS_ITS | Encounter Summary ---
Author Organization Healthcare Address [address] [place] [address] Care Team Providers Care Variety Performer Name Role Phone Elmo Escobar MD Primary Care Provider Reason for Visit * Reason Comments Pancreatitis * Auth/Cert Specialty Diagnoses / Procedures Referred By Contac t Referred To Contact Diagnoses Epigastric pain Javier Jimenez MD [address] [place] [address] Phone: tel: fax: [facility] [address] [place] [address] Phone: tel: Referral ID Status Reason Start Date Expiration Date Visits Re quested Visits Authorized [id number] 1 1 Encounter Details Date Type Department Care Team (Latest Contact Info) Description 10/21/2020 3:45 PM EDT - 11/06/2020 2:17 PM EDT Hospital Encounter [facility] [address] [place] [address] Napoleon Squires MD [address] [place] [address] Javier Jimenez MD [address] [place] [address] Tad Soriano MBBS [address] [place] [address] Walt Levy MD [address] [place] [address] Dipika Caputo MD [address] [place] [address] Rubens Alvarado MD Epigastric pain (Primary Dx); Duodenal ulcer; Coffee ground emesis Discharge Disposition: Home or Self Care Social [...] Reading Time Taken Comments Blood Pressure 124/84 11/06/2020 7:48 AM EDT Pulse 85 11/06/2020 7:48 AM EDT Temperature 36.6 ??C (97.9 ??F) 11/06/2020 7:48 AM ED T Respiratory Rate 17 11/04/2020 6:59 PM EDT Oxygen Saturation 95% 11/06/2020 7:48 AM EDT Inhaled Oxygen Concentration - - Weight 90.7 kg (200 lb) 10/21/2020 3:37 PM EDT Height 165.1 cm (5' 5 ) 10/21/2020 3:37 PM EDT Body Mass Index 33.28 10/21/2020 3:37 PM EDT documented in this encounter Discharge Instructions * Attachments The following attachments cannot be sent through Care Everywhere. * Colonoscopy, Gastroscopy, or ERCP Discharge Instructions - Endoscopy Unit () (Ghanaian) * Acute Pancreatitis, Discharge Instructions for (Ghanaian) documented in this encounter Medications at Time of Discharge clotrimazole (Lotrimin) 1 % cream Apply topically 2 (two) times a day for 28 days. 12 g 1 11/06/2020 1 sucralfate (Carafate) 1 GM/10ML suspension Take 10 mL (1 g total) by mouth every 6 (six) hours. 1200 mL 11/06/2020 1 Latuda 40 MG tablet Take 40 mg by mouth 1 (one) time each day with breakfast. 10/14/2020 3 naloxone (Narcan) 4 mg/0.1 mL nasal sprayIndications :Opioid Overdose Administer 1 spray (4 mg total) into affected nostril(s) if needed for opioid reversal or respiratory depression. Call 911. Give 4 mg (1 spray) into one nostril. Repeat every 2-3 minutes as needed, alternating nostrils, until medical assistance arrives. 1 each 2 11/06/2020 1 ondansetron (Zofran) 8 MG tablet Take 1 tablet (8 mg total) by mouth every 8 (eight) hours if needed for nausea or vomiting. 30 tablet 2 10/18/2020 1 oxyCODONE (Oxy-IR) 5 MG immediate release capsule Take 1 capsule (5 mg total) by mouth every 6 (six) hours if needed for severe pain for up to 3 days. 12 capsule 11/06/2020 1 pancrelipase, Mre-Vhyt-Udqb, (Creon) [id number] units capsule Take 1 capsule by mouth 3 (three) times a day with meals. 1 pantoprazole (ProtoNix) 40 MG EC tablet Take 1 tablet (40 mg total) by mouth 2 (two) times a day before meals. Do not crush, chew, or split. 120 tablet 11/06/2020 1 pregabalin (Lyrica) 200 MG capsule Take 200 mg by mouth 2 (two) times a day. 04/07/2020 1 venlafaxine XR (Effoxor-XR) 150 MG 24 hr capsule Take 150 mg by mouth 1 (one) time each day. 07/07/2020 3 documented as of this encounter Miscellaneous Notes * Discharge Instr - Appointments - Suzi Shields - 11/06/2020 4:30 PM EDT Pt needs to arrange a f/u appointment with Pain Management provider. Pt was provided with the list because she will need to call to initiate that process. * Progress Notes - Suzi Shields - 11/06/2020 2:17 PM EDT Case Management Discharge Note Lila Mcnally 34 y.o. female CSN: [id number] Availability of Care Givers (#Hours): No assistance needed Patient/Family Anticipated Services at Transition: none Equipment Needed After Discharge: none Follow-up: Primary care provider (PCP) Elmo Escobar MD [address] [place] [address] Other follow-up: Establish care with pain clinic Transportation Anticipated: family or friend will provide Has discharge transport been arranged?: No What day is the transport expected?: 11/06/20 Pt was provided with a list of pain management MD's who she can establish care with upon discharge. * Discharge Summary - Sonal Blanca MD - 11/06/2020 1:50 PM EDT Hospitalization Admit Date/Time: 10/21/2020 3:45 PM Admitting Attending: Dipika Caputo Discharge Date: 11/06/2020 Discharge Attending Physician: Rubens Alvarado Md PCP name and Address: Elmo Escobar MD [address] [place] [address] / [place] [address] Chief Concern, Brief History of Present Illness, and Hospital Course Lila Mcnally is a 34y F who presented to ED 10/21 for 3 days of epigastric and RUQ pain, nausea, and 1 day of hematemesis. On admission lipase was wnl, hepatitis panel was negative, and CT showed changes around the proximal duodenum suggesting duodenal ulcer. She was started on empiric PPI, zofran, pain medication, and GI was consulted. She had an EGD 10/22 which showed a 1.5cm duodenal ulcer andPPI were continued. 10/23 patient was able to tolerate liquid diet, so medications were changed to PO and diet was advanced to full. Unable to tolerate full diet and had several episodes of emesis. The following day she had JYOTSNA likely due to dehydration, so her fluid rate was increased and she was given a bolus. JYOTSNA resolved and pt continued to have normal Cr with increased fluid rate. For severaldays patient was unable to tolerate food, she had light or no vomiting. Adjustments to her pain medication regimen were made in order to get pain under control. She began increasing food intake without vomiting and by discharge was tolerating foods and liquids without vomiting on oxycodone 5mg every 6 hours. #Non-bleeding duodenal ulcer #Healing gastric ulcer INVESTIGATION: - CT abd/pelvis w IV contrast 10/21 showed minimal amount of stranding adjacent to first portion of duodenum with minimal wall thickening, tiny outpouching within the wall of the first portion of the duodenum. - EGD 10/22 showed 1.5cm duodenal ulcer and healing gastric ulcer INTERVENTION: - Pantoprazole 40mg BID started 10/21 - Sucralfate, acetaminophen, and opioids given for pain management - Zofran and phenergan given for nausea management PLAN: - Continue pantoprazole 40mg BID for 6 more weeks (end 12/16) - Follow up with [facility] #JYOTSNA INVESTIGATION: - 10/24 Cr increased from 0.63->1.14, likely due to dehydration after multiple episodes of emesis and fluids at 100mL/hr - 10/30 another episode of JYOTSNA 0.93 to 1.22, likely related to low PO fluid intake INTERVENTION: - On 10/24 increased fluid rate to 125mL/hr and gave 500mL bolus, kept fluids 100- 125mL/hr for remainder of time that patient could not take enough fluids in PO, added additional IV boluses as needed - By discharge patient was off IV fluids PLAN: - Repeat Cr at follow up with PCP #Chronic pancreatitis INVESTIGATION - Lipase and LFTs wnl on admission, CT showed pancreas enhancing homogenously - Repeat lipase and LFTs 10/26 and 10/27 were wnl INTERVENTION - Pain management as above PLAN: - MR abdomen to be scheduled outpatient - Patient will contact and establish care with pain management clinic - Discharged with 3 days of oxycodone 5mg q6h PRN #Anxiety INVESTIGATION - Patient reported anxiety related to her pain and fear of further pain INTERVENTION - 5mg amitriptyline nightly was started 10/27 - After mild improvement switched to 10mg nortriptyline nightly on 11/01, however patient developed urinary hesitancy which persisted even with decrease back to amitriptyline - Stopped amitriptyline & nortriptyline PLAN - Follow up with PCP #Tinea corporis INVESTIGATION - Patient reported lesion started 2 years ago after hitting her rodríguez and slowly growing since then,she reports biopsy that showed fungal infection, using clotrimazole intermittently since then, lesion is roughly 4cm large, erythematous with central clearing and biopsy scar, likely tinea corporis INTERVENTION - Gave clotrimazole topical BID PLAN - Follow up with PCP - Rx for clotrimazole topically given on discharge #Right breast mass INVESTIGATION - CT abd/pelvis had incidental finding of solid 24mm mass in right breast, present since 2016, suggesting benignity, no acute intervention necessary PLAN - Follow up with PCP #Irregular vaginal bleeding INVESTIGATION - Patient reported starting menses the day before admission, however her light menses continued throughout, normally 3 days of menses - U/A dip showed large amount of blood and microscopic showed 11-15 RBC, 0-5 WBC - CT abd/pelvis 10/28 showed an enhancing nodule in the uterus, likely corresponding to leiomyoma - Patient not anemic, no acute intervention necessary PLAN - Follow up with PCP or food service aide Medication changes: Giving 3 days of oxycodone 5mg q6hrs Added pantoprazole 40mg BID until 12/16 Added carafate suspension for symptoms until ulcer healed Follow-up: PCP within 1-2 weeks [facility] within 1-2 months Patient will establish care with pain management clinic Surgeries and Procedures None Medication List .. clotrimazole 1 % cream Commonly known as: Lotrimin Apply topically 2 (two) times a day for 28 days. Latuda 40 MG tablet Generic drug: [...] alternating nostrils, until medical assistance arrives. ondansetron 8 MG tablet Commonly known as: Zofran Take 1 tablet (8 mg total) by mouth every 8 (eight) hours if needed for nausea or vomiting. oxyCODONE 5 MG immediate release capsule Commonly known as: Oxy-IR Take 1 capsule (5 mg total) by mouth every 6 (six) hours if needed for severe pain for up to 3 days. pancrelipase (Bjz-Vaed-Tchp) [id number] units capsule Commonly known as: Creon Take 1 capsule by mouth 3 (three) times a day with meals. pantoprazole 40 MG EC tablet Commonly known as: ProtoNix Take 1 tablet (40 mg total) by mouth 2 (two) times a day before meals. Do not crush, chew, or split. pregabalin 200 MG capsule Commonly known as: Lyrica Take 200 mg by mouth 2 (two) times a day. sucralfate 1 GM/10ML suspension Commonly known as: Carafate Take 10 mL (1 g total) by mouth every 6 (six) hours. venlafaxine XR 150 MG 24 hr capsule Commonly known as: Effoxor-XR TAKE 1 CAPSULE BY MOUTH ONCE DAILY IN THE MORNING Where to Get Your Medications These medications were sent to [facility] [place] [id number] ?? clotrimazole 1 % cream ?? naloxone 4 mg/0.1 mL nasal spray ?? oxyCODONE 5 MG immediate release capsule ?? pantoprazole 40 MG EC tablet ?? sucralfate 1 GM/10ML suspension Discharge Diagnosis Medical Problems Active and Resolved Hospital Problems Hospital Class 1 obesity in adult * (Principal) Acute on chronic pancreatitis (CMS/HCC) Bipolar depression (CMS/HCC) Anxiety Fibromyalgia Tobacco abuse Duodenal ulcer RESOLVED: Epigastric pain RESOLVED: Coffee ground emesis RESOLVED: Severe protein-calorie malnutrition (CMS/HCC) Post Discharge Instructions - establish care with chronic pain clinic - take pantoprazole twice daily for 8 weeks- follow-up with GI Outpatient Follow-Up Future Appointments Date Time Provider Department Center 02/26/2021 3:40 PM DANIA Gunn [facility] Test Results Pending At Discharge none Pertinent Physical Exam At Time of Discharge General: obese, no acute distress, sitting up in bed Head: normocephalic atraumatic CV: RRR, no M/R/G, no edema Resp; CTAB, no wheezes, rales, rhonchi Abd: soft, nontender, nondistended Skin: warm & dry Neuro: no focal deficits, AAOx3 Psych: appropriate mood & affect Discharge Disposition/Condition Disposition: Home Condition: Stable (s/sx potential problems absent or manageable) Cosigned by Rubens Alvarado MD at 11/06/2020 2:54 PM EDT Associated attestation - Rubens Alvarado MD - 11/06/2020 2:54 PM EDT I saw and evaluated the patient with the resident/fellow. I discussed the case with the resident/fellow and agree with the findings and plan as documented. 34yo woman with history of chronic pancreatitis admitted for epigastric and RUQ pain, found to haveduodenal ulcer on CT abd/pelvis and underwent EGD on 10/22 that showed 1.5cm non-bleeding duodenal ulcer. Course subsequently complicated by ongoing abdominal pain, nausea and PO intolerance. Ultimately able to wean medications for nausea and pain to the extent that she tolerated food/fluids withoutrecurrence of symptoms. Given history of chronic pancreatitis and recurrent presentations for flares requiring management with opioids, recommended establishing care with pain clinic as outpatient, and patient amenable to this. Otherwise follow-up with PCP and GI. Cont PPI on discharge. * Progress Notes - Adrienne Jose Chapo - 11/05/2020 12:35 PM EDT Progress Note Subjective Patient was excessively somnolent today, however was able to answer questions appropriately. She states that she got a dose of phenergan last night and stayed up late so that is why she is tired. Yesterday she had a bagel but vomited afterwards, she continues to have nausea. Tolerating liquids. Shecontinues to have abdominal pain. She has felt warm but no chills and her joint pains are the same as yesterday. Some difficulty voiding and she has not had a bowel movement in the past day. Review of Systems Constitutional: Positive for appetite change. Negative for chills and fever. HENT: Negative for rhinorrhea. Respiratory: Negative for shortness of breath. Cardiovascular: Negative for chest pain and leg swelling. Gastrointestinal: Positive for abdominal pain, nausea and vomiting. Negative for constipation and diarrhea. Genitourinary: Positive for difficulty urinating. Negative for dysuria. Musculoskeletal: Positive for arthralgias. Negative for myalgias. Objective Last Recorded Vitals Blood pressure 116/64, pulse 96, temperature 36.3 ??C (97.4 ??F), resp. rate 17, height 1.651 m (5'5 ), weight 90.7 kg (200 lb), SpO2 98 %. Physical Exam Constitutional: Appearance: She is obese. [...] There is no guarding or rebound. Musculoskeletal: Right lower leg: No edema. Left lower leg: No edema. Skin: General: Skin is warm and dry. Neurological: Mental Status: She is lethargic. Psychiatric: Mood and Affect: Mood normal. Behavior: Behavior normal. Relevant Results Labs in last 18 hours CBC WBC ?? Hb ?? Plt ?? Hct ?? ANC ?? INR ??, PTT ??, Anti-Xa ?? BMP Na ?? Cl ?? BUN ?? Glu ?? K ?? Co2 ?? Cr ?? Ca ?? iCa ?? Mg 1.9, Phos ?? Lactate ?? LFT AST ?? AlkPhos ?? T Prot ?? ALK ?? Bili ?? Alb ?? D.Bili ?? Assessment and Plan Lila Mcnally is a 34y F w/ PMH chronic pancreatitis, cholelithiasis s/p cholecystectomy complicated by choledocholithiasis s/p ERCP 05/13, obesity who presented to ED for 3 days of severe epigastric pain, nausea, and 1 day coffee-ground hematemesis which was found to be a duodenal ulcer. #Non-bleeding duodenal ulcer due to NSAID use - Presented with 3 days of epigastric pain in setting of recent NSAID use and smoking, coffee-ground hematemesis, lipase and LFTs wnl throughout hospitalization - CT 10/21 showing stranding and outpouching in first portion of the duodenum, likely representing duodenal ulcer, EGD 10/22 showed 1.5cm duodenal ulcer and healing gastric ulcer, biopsy negative for H. pylori PLAN: - Continue pantoprazole PO 40mg BID, sucralfate, ODT zofran, phenergan 12.5mg q4hrs PRN - Continue oxycodone 10mg scheduled q6hrs, increase frequency of oxycodone 5mg to q4hrs PRN for breakthrough pain, tylenol 650mg PO q6hrs #JYOTSNA, likely secondary to hypovolemia, resolved - No signs of hypervolemia, check Cr today PLAN: - Continue IVF 100mL/hr due to decreased PO intake #Rhinovirus - Positive test 11/03, continue symptomatic treatment with tylenol #Fibromyalgia - Yesterday methocarbamol changed to flexeril due to increased joint pain, now increased lethargy likely secondary to flexeril, will discontinue flexeril and reassess #Bipolar depression with anxiety - Patient reports increase in anxiety during hospitalization and fear of pain, regular tearful affect, currently on venlafaxine and latuda PLAN: - Discontinue amitriptyline 5mg due to urinary hesitancy, consider propanolol tomorrow #Constipation, resolved - Patient has not had a bowel movement in the past 2 days, no miralax yesterday - Continue daily miralax and senna today, will consider bisacodyl tomorrow if no BM #Hypomagnesemia - Today Mg was at 1.9, recheck in AM Resolved medical conditions: #Tinea corporis - Patient has right lower extremity lesion reportedly present for 2 years and reportedly biopsied and found to be fungal, taking anti-fungal for it, likely clotrimazole - Continue clotrimazole cream BID - Have patient follow up with PCP after discharge #Right breast mass - CT 10/28 showed solid mass in right breast measuring 24mm which was present in previous CT done 2016, recommend f/u with PCP #Irregular menses - Patient has an episode of prolonged light menses without pain or significant blood loss, currently resolved - CT 10/28 mentioned an enhancing nodule within the uterus and normal ovaries, CT 10/21 stated unremarkable pelvic viscera - Etiologies could include decreased intake, stress, leiomyoma, recommended patient follow up with food service aide after discharge Chronic medial conditions #Class 1 obesity (POA) - BMI 33.28, complicates all level of care #Tobacco use - NRT during hospitalization #Chronic pancreatitis - Taking home DAMIAN hooper showed active cumulative morphine equivalent of 15 with recent prescriptions of [place] Trevose - 12 doses 09/27, 7 doses 10/04, 10 doses 10/07, 12 doses 10/20 F: 100mL/hr LR E: Replete PRN N: Regular diet VTE: pLOV Dispo: Pending improved pain and tolerating food PO, likely 1-3 days Jose Deleon, MS4 Cosigned by Dipika Caputo MD at 11/05/2020 1:18 PM EDT Associated attestation - Dipika Caputo MD - 11/05/2020 1:18 PM EDT I saw and evaluated the patient with the medical student. I discussed the case with the medical student and agree with the findings and plan as documented. I personally performed the Exam and MedicalDecision Making. -discontinue amitriptyline - discontinue flexeril due to somnolence - c/w current pain regimen * Consults - Farida Eason RD - 11/05/2020 12:30 PM EDT Adult Nutrition Evaluation Note Lila Mcnally 34 y.o. female CSN: [id number] Room/Bed 403/403A Nutrition evaluation type: screen Reason for evaluation: [facility] Hospital course: 34 y/o F who was admitted on 10/21 with 3 days of severe epigastric pain, nausea, and 1 day coffee-ground hematemesis. Non-bleeding duodenal ulcer due to NSAID use- EGD 10/22 showed 1.5cm duodenal ulcer and healing gastric ulcer. Plans to obtain KUB to eval for ilesus d/t constipation - now s/p KUB and constipation resolved. Past medical/ surgical history: Past Medical History: Diagnosis Date ??? Anxiety ??? Depression ??? Fibromyalgia ??? GERD (gastroesophageal reflux disease) ??? Hypertension ??? Nicotine dependence ??? Obesity ??? Pancreatitis Past Surgical History: Procedure Laterality Date ??? CHOLECYSTECTOMY ??? ERCP Additional comments: 11/05: Pt continues to endorse nausea - does worsen with food. Pt would like boost discontinued and fruit added to all trays instead Vitals and Basic Assessment: BP: 116/64 Temp: 36.3 ??C (97.4 ??F) Oxygen Therapy: None (Room air) O2 Delivery Method: Nasal cannula Jo Coma Scale Score: 15 Scott Scale Score: 20 Last BM Date: 10/27/20 GI Symptoms: Nausea Allergies: no known food allergies Medications: acetaminophen, 650 mg, Oral, q6h INO calcium carbonate, 500 mg, Oral, BID clotrimazole, 1 application, Topical, BID enoxaparin, 40 mg, Subcutaneous, Daily lurasidone, 40 mg, Oral, Daily before dinner magnesium sulfate, 2 g, Intravenous, Once multivitamin, 1 tablet, Oral, Daily ondansetron ODT, 8 mg, Oral, TID with meals oxyCODONE, 10 mg, Oral, q6h pancrelipase (Ele-Pqid-Xwoz), 2 capsule, Oral, TID with meals pantoprazole, 40 mg, Oral, BID AC polyethylene glycol, 17 g, Oral, BID pregabalin, 200 mg, Oral, BID senna, 17.2 mg, Oral, BID sucralfate, 1 g, Oral, q6h INO venlafaxine XR, 150 mg, Oral, Daily with breakfast lactated Ringer's, 100 mL/hr, Last Rate: 100 mL/hr (11/03/20 1030) melatonin, oxyCODONE, prochlorperazine, promethazine, [COMPLETED] Insert peripheral IV AND [COMPLETED] Saline lock IV AND sodium chloride Meds were reviewed: Yes Labs: Lab Results Component Value Date WBC 5.00 10/30/2020 HGB 12.1 10/30/2020 HCT 35.9 10/30/2020 MCV 88 10/30/2020 PLT 182 10/30/2020 Lab Results Component Value Date GLUCOSE 121 (H) 11/04/2020 CALCIUM 8.8 (L) 11/04/2020 NA 139 11/04/2020 K 4.0 11/04/2020 CO2 25 11/04/2020 CL 103 11/04/2020 BUN 6 (L) 11/04/2020 CREATININE 0.74 11/04/2020 Lab Results Component Value Date ALBUMIN 4.0 10/30/2020 Lab Results Component Value Date CALCIUM 8.8 (L) 11/04/2020 PHOS 4.9 (H) 10/30/2020 Lab Results Component Value Date HGBA1C 5.3 10/18/2020 Lab Results Component Value Date CRP 3.0 10/21/2020 Lab Results Component Value Date ALT 15 10/28/2020 AST 18 10/28/2020 ALKPHOS 64 10/28/2020 BILITOT <0.2 (L) 10/28/2020 Anthropometrics: Admit Height (CM) 165.1 cm Admit Weight (KG) 90.7 kg Current Weight (KG) 90.7 kg BMI 33.3 Weight Evaluation Obese Class 1 IBW (KG) 56.7 kg Percent IBW 159.9% Adjusted Weight (KG) 65 kg Weight History Per EMR: Wt Readings from Last 10 Encounters: 10/21/20 90.7 kg (200 lb) 10/18/20 90.7 kg (200 lb) 10/18/20 79.8 kg (176 lb) 01/25/16 80.7 kg (178 lb) Reported UBW: 214# Additional Comments Pt reports 7# loss x 2 weeks. However pt EMR pt currently 14# below UBW - This be represent a 6.5% wt loss x possibly 2 weeks per pt reported timeline- severe if accurate Estimated Needs: Provided Based On Weight Used Kcal/day 3732-8109 25-30 ABW Protein/day 78 1.2 ABW Fluid/day 1ml/kcal or per MD team Additional Comments Current Nutrition Intake: Current Diet Order low fat Avg PO Intakes per RN Flowsheets 28% x 8 meals Oral Nutrition Supplements Boost Plus TID (1080 kcal, 42g protein) Diet EDU Provided Will monitor need throughout LOS Baptism/ Cultural Needs Ethnic needs not identified at this time Additional Comments Nutrition Focused Physical Exam: Physical exam performed on (date): 10/26/20 Temples (muscles): None Clavicle (muscle): None Shoulder (muscle): None Interosseous (muscle): None Orbital (fat): None Triceps (fat): None Assessment of Malnutrition: Meets Criteria For: Severe malnutrition In Context Of: Acute illness/ injury Based On: Inadequate energy intake, Weight loss Present on Admission: Yes Weight Trends 6.5% wt loss x possibly 2 weeks per pt reported timeline- severe if accurate Energy Intake Trends Pt reports~50% PO intake avg x 6 months with some days of good intakes and other with very poor intakes Additional Comments Nutrition Problem: Inadequate energy intake related to current clinical status as evidenced by 50- 60% PO x 6 months -->28% x 9 meals --> 28%. Status of Nutrition Diagnosis: Ongoing Nutrition Interventions and Recommendations: - Continue low fat - Discontinue boost plus TID - Consider appetite stimulant - Continue MVI with mineral daily. - Rec obtaining weight 1x/week. Nutrition Monitoring and Goals: - Will monitor PO intake, weight status, lab results, GI tolerance, and skin integrity. - Pt will tolerate >75% avg of meal intakes. (not met, continue) - Pt will maintain weight this admission. (Monitoring) Discharge Planning: RD to monitor for nutrition related discharge needs. Acuity Level: [address] * Progress Notes - Dipika Caputo MD - 11/04/2020 1:58 PM EDT Progress Note Subjective Ms. Mcnally was seen and examined this am. She reports feeling terribly. She notes continued abdominal pain, that is stable, joint pains, and mild difficulty urinating today. Yesterday she ate a bagel.She has not eaten today. She has not had further fever overnight. She feels like the 15mg oxycodoneworks better. Today: change methocarbamol to flexeril, change lyrica to 300mg BID, from 150mg TID. Review of Systems Constitutional: Positive for appetite change. Negative for chills and fever. HENT: Positive for rhinorrhea. Respiratory: Negative for shortness of breath. Cardiovascular: Negative for chest pain. Gastrointestinal: Positive for abdominal pain and nausea. Negative for constipation, diarrhea and vomiting. Genitourinary: Positive for difficulty urinating. Negative for dysuria. Musculoskeletal: Positive for arthralgias. Negative for joint swelling and myalgias. Objective Last Recorded Vitals Blood pressure 114/83, pulse 108, temperature 36.6 ??C (97.9 ??F), resp. rate 16, height 1.651 m (5' 5 ), weight 90.7 kg (200 lb), SpO2 95 %. Physical Exam Constitutional: General: She is not [...] Normal breath sounds. No wheezing. Abdominal: General: Bowel sounds are normal. Palpations: Abdomen is soft. There is no mass. Tenderness: There is abdominal tenderness in the epigastric area and left upper quadrant. There is no guarding or rebound. Musculoskeletal: Right lower leg: No edema. Left lower leg: No edema. Skin: General: Skin is warm. Coloration: Skin is not jaundiced. Neurological: Mental Status: She is alert. Mental status is at baseline. Psychiatric: Mood and Affect: Mood normal. Behavior: Behavior normal. Relevant Results Labs in last 18 hours CBC WBC ?? Hb ?? Plt ?? Hct ?? ANC ?? INR ??, PTT ??, Anti-Xa ?? BMP Na 139 Cl 103 BUN 6 (L) Glu 121 (H) K 4.0 Co2 25 Cr 0.74 Ca 8.8 (L) iCa ?? Mg ??, Phos ?? Lactate ?? LFT AST ?? AlkPhos ?? T Prot ?? ALK ?? Bili ?? Alb ?? D.Bili ?? Assessment and Plan Lila Mcnally is a 34y F w/ PMH chronic pancreatitis, cholelithiasis s/p cholecystectomy complicated by choledocholithiasis s/p ERCP 05/13, obesity who presented to ED for 3 days of severe epigastric pain, nausea, and 1 day coffee-ground hematemesis which was found to be a duodenal ulcer. She has had continued abdominal pain requiring opiates for control and poor PO intake. # Acute on chronic abdominal pain likely 2/2 chronic pancreatitis: - c/w oxycodone 10mg every 6H, 5mg every 4H PRN - nausea control with zofran 8mg TID and compazine/phenergan PRN - bowel regimen while on opiates - change lyrica to 300mg BID - c/w tylenol and amitryptiline # Nonbleeding duodenal ulcer 2/2 NSAID use - avoid NSAIDs - c/w Pantoprazole BID and sucralfate QID # Rhinovirus: symptomatic treatment with tylenol # Anxiety: c/w venlafaxine and amitryptiline as above # Fibromyalgia: change methocarbamol to flexeril TID, lyrica as above CHRONIC ISSUES # Right Breast mass: - CT 10/28 showed solid mass in right breast measuring 24mm which was present in previous CT done 2016, recommend f/u with PCP # Tinea Corporis: c/w clotrimazole cream BID #Class 1 obesity (POA) - BMI 33.28, complicates all level of care RESOLVED JYOTSNA FEN: regular low fat PPx: lovenox Dispo: pending improvement of pain and PO intake * Progress Notes - Jose Deleon - 11/03/2020 10:37 AM EDT Progress Note Subjective Yesterday, after a trial of scheduled 5mg oxycodone instead of 10mg patient had recurrence of severe abdominal pain and she was put back on 10mg. Since then her pain has been tolerated but she desires the PRN 5mg oxycodone to be q4hrs rather than q6hrs because she is taking scheduled and PRN concurrently. She continues to have nausea but had no vomiting yesterday. She was unable to eat much due to nausea and pain. She states that yesterday afternoon she started having fevers and chills which have persisted today. She also developed joint pain, especially in her knees, but denies myalgias. Shehas mild rhinorrhea and headache. Denies chest pain, dyspnea. Her urinary hesitancy has resolved tobaseline with a mild amount of dysuria. No BM yesterday. Review of Systems Constitutional: Positive for appetite change, chills and fever. HENT: Positive for rhinorrhea. Respiratory: Negative for shortness of breath. Cardiovascular: Negative for chest pain. Gastrointestinal: Positive for abdominal pain and nausea. Negative for constipation, diarrhea and vomiting. Genitourinary: Positive for difficulty urinating. Negative for dysuria. Musculoskeletal: Positive for arthralgias. Negative for myalgias. Neurological: Positive for headaches. Objective Last Recorded Vitals Blood pressure 129/82, pulse 104, temperature 37.3 ??C (99.1 ??F), resp. rate 17, height 1.651 m (5' 5 ), weight 90.7 kg (200 lb), SpO2 97 %. Physical Exam Constitutional: Appearance: She is obese. She is diaphoretic. HENT: Head: Normocephalic and atraumatic. Eyes: [...] There is no guarding or rebound. Musculoskeletal: Right lower leg: No edema. Left lower leg: No edema. Skin: General: Skin is warm. Neurological: Mental Status: She is alert. Psychiatric: Mood and Affect: Mood normal. Behavior: Behavior normal. Relevant Results Labs in last 18 hours CBC WBC ?? Hb ?? Plt ?? Hct ?? ANC ?? INR ??, PTT ??, Anti-Xa ?? BMP Na 135 (L) Cl 96 (L) BUN 5 (L) Glu 95 K 3.9 Co2 23 Cr 0.78 Ca 9.2 iCa ?? Mg 1.8 (L), Phos ?? Lactate ?? LFT AST ?? AlkPhos ?? T Prot ?? ALK ?? Bili ?? Alb ?? D.Bili ?? Assessment and Plan Lila Mcnally is a 34y F w/ PMH chronic pancreatitis, cholelithiasis s/p cholecystectomy complicated by choledocholithiasis s/p ERCP 05/13, obesity who presented to ED for 3 days of severe epigastric pain, nausea, and 1 day coffee-ground hematemesis which was found to be a duodenal ulcer. #Subjective fever and chills - Patient had temperature of 100.1 F yesterday with subjective fever and chills, night sweats, and arthralgias. Reports mild dysuria, last U/A 10/29 PLAN: - Will obtain COVID and flu tests, respiratory virus panel, U/A - Until results known patient will stay contact and droplet protection #Non-bleeding duodenal ulcer due to NSAID use - Presented with 3 days of epigastric pain in setting of recent NSAID use and smoking, coffee-ground hematemesis - CT 10/21 showing stranding and outpouching in first portion of the duodenum, likely representing duodenal ulcer - Not likely pancreatitis as lipase is wnl and pancreas imaging is not significant - EGD 10/22 showed 1.5cm duodenal ulcer and healing gastric ulcer - Recheck of LFTs and lipase 10/26-4 were all wnl PLAN: - Patient has improving pain and nausea - Continue pantoprazole PO 40mg BID, sucralfate, ODT zofran, phenergan 12.5mg q4hrs PRN - Continue oxycodone 10mg scheduled q6hrs, increase frequency of oxycodone 5mg to q4hrs PRN for breakthrough pain, tylenol 650mg PO q6hrs #JYOTSNA, likely secondary to hypovolemia, resolved - Cr 0.87->0.78 today, patient able to tolerate liquids PO, no signs of hypervolemia PLAN: - Continue IVF 100mL/hr due to new subjective fever and concern for decreased PO intake #Hypomagnesemia - Today Mg was at 1.8, replete with 2g IV mag #Anxiety - Patient reports increase in anxiety during hospitalization and fear of pain, regular tearful affect, currently on venlafaxine 150mg - Continue amitriptyline 5mg nightly #Hyperkalemia, resolved #Acidosis, resolved - Patient reports having her morning labs taken from IV line without time between stopping her fluids and drawing blood, likely secondary to dilution, labs now wnl #Constipation, resolved - KUB 10/27 showed nonobstructive stool burden without ileus - Patient received bisacodyl and then mag citrate, after which she had a stool - Continue daily miralax and senna #Irregular menses - Patient has an episode of prolonged light menses without pain or significant blood loss - CT 10/28 mentioned an enhancing nodule within the uterus and normal ovaries, CT 10/21 stated unremarkable pelvic viscera - Etiologies could include decreased intake, stress, leiomyoma, recommended patient follow up with food service aide after discharge #Right breast mass - CT 10/28 showed solid mass in right breast measuring 24mm which was present in previous CT done 2016, recommend f/u with PCP #Tinea corporis - Patient has right lower extremity lesion reportedly present for 2 years and reportedly biopsied and found to be fungal, taking anti-fungal for it, likely clotrimazole - Continue clotrimazole cream BID - Have patient follow up with PCP after discharge Chronic medial conditions #Class 1 obesity (POA) - BMI 33.28, complicates all level of care #Bipolar depression - Continue home venlafaxine and latuda #Fibromyalgia - Continue home pregabalin and methocarbamol #Tobacco use - NRT during hospitalization #Chronic pancreatitis - Taking home DAMIAN hooper showed active cumulative morphine equivalent of 15 with recent prescriptions of [place] Trevose - 12 doses 09/27, 7 doses 10/04, 10 doses 10/07, 12 doses 10/20 F: 100mL/hr LR E: Replete PRN N: Regular diet VTE: pLOV Dispo: Pending improved pain and tolerating food PO, likely 1-3 days Jose Deleon, MS4 Cosigned by Dipika Caputo MD at 11/03/2020 3:27 PM EDT Associated attestation - Dipika Caputo MD - 11/03/2020 3:27 PM EDT I saw and evaluated the patient with the medical student. I discussed the case with the medical student and agree with the findings and plan as documented. I personally performed the Exam and MedicalDecision Making. Reports episode of fever and joint pains today. Fevers c/b myalgias: Follow up COVID, flu, RVP Abdominal pain 2/2 chronic pancreatitis: c/w oxycodone 10mg every 6H, oxycodone 5mg every 4 H PRN Duodenal ulcer c/w pantoprazole and sucralfate * Progress Notes - Jose Deleon - 11/02/2020 12:15 PM EDT Progress Note Subjective Patient did well yesterday, she ate a bagel for lunch and dinner with some nausea but without vomiting. She was able to tolerate liquids. This morning she wanted to try oxycodone 5mg scheduled q6hrs rather than oxy 10mg but after she was unable to tolerate the pain and requested to switch back to 10mg. She has had some urinary hesitancy without dysuria today. She had a bowel movement yesterday. 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 Review of Systems Constitutional: Negative for fever. Respiratory: Negative for shortness of breath. Cardiovascular: Negative for chest pain. Gastrointestinal: Positive for abdominal pain and nausea. Negative for constipation, diarrhea and vomiting. Genitourinary: Positive for difficulty urinating and vaginal bleeding. Negative for dysuria. Objective Last Recorded Vitals Blood pressure 118/79, pulse 77, temperature 36.8 ??C (98.2 ??F), resp. rate 16, height 1.651 m (5'5 ), weight 90.7 kg (200 lb), SpO2 93 %. Physical Exam Constitutional: Appearance: She is obese. Eyes: Conjunctiva/sclera: Conjunctivae normal. Cardiovascular: Rate and Rhythm: Normal rate and regular rhythm. Heart sounds: Normal heart sounds. Pulmonary: Effort: Pulmonary effort is normal. Breath sounds: Normal breath sounds. Abdominal: General: Bowel sounds are normal. Palpations: Abdomen is soft. Tenderness: There is abdominal tenderness in the epigastric area and left upper quadrant. There is no guarding or rebound. Musculoskeletal: Right lower leg: No edema. Left lower leg: No edema. Skin: General: Skin is warm and dry. Neurological: Mental Status: She is alert. Psychiatric: Mood and Affect: Mood normal. Behavior: Behavior normal. Relevant Results Labs in last 18 hours CBC WBC ?? Hb ?? Plt ?? Hct ?? ANC ?? INR ??, PTT ??, Anti-Xa ?? BMP Na 139 Cl 103 BUN 7 Glu 89 K 4.9 (H) Co2 21 (L) Cr 0.87 Ca 8.6 (L) iCa ?? Mg 1.8 (L), Phos ?? Lactate ?? LFT AST ?? AlkPhos ?? T Prot ?? ALK ?? Bili ?? Alb ?? D.Bili ?? Assessment and Plan Lila Mcnally is a 34y F w/ PMH chronic pancreatitis, cholelithiasis s/p cholecystectomy complicated by choledocholithiasis s/p ERCP 05/13, obesity who presented to ED for 3 days of severe epigastric pain, nausea, and 1 day coffee-ground hematemesis which was found to be a duodenal ulcer. #Non-bleeding duodenal ulcer due to NSAID use - Presented with 3 days of epigastric pain in setting of recent NSAID use and smoking, coffee-ground hematemesis - CT 10/21 showing stranding and outpouching in first portion of the duodenum, likely representing duodenal ulcer - Not likely pancreatitis as lipase is wnl and pancreas imaging is not significant - EGD 10/22 showed 1.5cm duodenal ulcer and healing gastric ulcer - Recheck of LFTs and lipase 10/26- were all wnl PLAN: - Patient has improving pain and nausea - Continue pantoprazole PO 40mg BID, sucralfate, ODT zofran, phenergan 12.5mg q4hrs PRN - Continue oxycodone 10mg scheduled q6hrs, decrease frequency of oxycodone 5mg to q6hrs PRN for breakthrough pain, tylenol 650mg PO q6hrs #JYOTSNA, likely secondary to hypovolemia, resolved - Cr 0.98->0.87 today, got 125mL/hr yesterday, patient able to tolerate liquids PO, no signs of hypervolemia PLAN: - Decrease IV LR 100mL/hr, patient will continue fluids PO, recheck Cr in AM #Anxiety - Patient reports increase in anxiety during hospitalization and fear of pain, regular tearful affect, currently on venlafaxine 150mg - Discontinue nortriptyline 10mg nightly due to increased urinary retention, start amitriptyline 5mg nightly for anxiety and decreased side effect profile #Hyperkalemia #Acidosis - Patient reports having her morning labs taken from IV line without time between stopping her fluids and drawing blood - Today labs closer to normal, likely secondary to dilution, recheck in AM #Hypomagnesemia - Today Mg was at 1.8, replete with 2g IV mag #Constipation, resolved - KUB 10/27 showed nonobstructive stool burden without ileus - Patient received bisacodyl and then mag citrate, after which she had a stool - Continue daily miralax and senna #Irregular menses - Patient has an episode of prolonged light menses without pain or significant blood loss - CT 10/28 mentioned an enhancing nodule within the uterus and normal ovaries, CT 10/21 stated unremarkable pelvic viscera - Etiologies could include decreased intake, stress, leiomyoma, recommended patient follow up with food service aide after discharge #Right breast mass - CT 10/28 showed solid mass in right breast measuring 24mm which was present in previous CT done 2016, recommend f/u with PCP #Tinea corporis - Patient has right lower extremity lesion reportedly present for 2 years and reportedly biopsied and found to be fungal, taking anti-fungal for it, likely clotrimazole - Continue clotrimazole cream BID - Have patient follow up with PCP after discharge Chronic medial conditions #Class 1 obesity (POA) - BMI 33.28, complicates all level of care #Bipolar depression - Continue home venlafaxine and latuda #Fibromyalgia - Continue home pregabalin and methocarbamol #Tobacco use - NRT during hospitalization #Chronic pancreatitis - Taking home DAMIAN hooper showed active cumulative morphine equivalent of 15 with recent prescriptions of [place] Trevose - 12 doses 09/27, 7 doses 10/04, 10 doses 10/07, 12 doses 10/20 F: 100mL/hr LR E: Replete PRN N: Regular diet VTE: pLOV Dispo: Pending improved pain and tolerating food PO, likely 1-3 days Jose Traceyalise, MS4 Cosigned by Dipika Caputo MD at 11/02/2020 3:44 PM EDT Associated attestation - Dipika Caputo MD - 11/02/2020 3:44 PM EDT I saw and evaluated the patient with the medical student. I discussed the case with the medical student and agree with the findings and plan as documented. I personally performed the Exam and MedicalDecision Making. Acute on chronic pancreatitis: c/w oral pain regimen, reduce PRN oxycodone 5mg every 6H. NSAID induced peptic ulcer disease: c//w pantoprazole BID, sulcralfate QID. * Progress Notes - Suzi Shields - 11/01/2020 3:54 PM EDT Case Management Adult Progress Note Lila Mcnally 34 y.o. female CSN: [id number] Anticipated Discharge Date: TBD Has Discharge Plans Changed? No Medicare Second Notice: Housing Circumstances: Not Applicable Housing Circumstances Action Taken: N/A Additional Comments Per the medical team the pt isn't ready to discharge at this time, it is expected the pt is ready to discharge at 48 hours. Pt has no discharge needs at this time. Suzi Shields * Progress Notes - Jose Deleon - 11/01/2020 12:16 PM EDT Progress Note Subjective Patient was able to tolerate pain overnight without IV dilaudid. She continues to have nausea but hasn't had vomiting. She was able to eat a small amount of full liquid diet for lunch and dinner. Sheurinated well and has not had a bowel movement in the past day. Review of Systems Constitutional: Positive for appetite change. Negative for fever. Respiratory: Negative for shortness of breath. Cardiovascular: Negative for chest pain. Gastrointestinal: Positive for abdominal pain and nausea. Negative for constipation, diarrhea and vomiting. Genitourinary: Negative for difficulty urinating and dysuria. Objective Last Recorded Vitals Blood pressure 124/86, pulse 65, temperature 36.7 ??C (98 ??F), temperature source Oral, resp. rate16, height 1.651 m (5' 5 ), weight 90.7 kg (200 lb), SpO2 97 %. Physical Exam Constitutional: Appearance: She is obese. Eyes: Conjunctiva/sclera: Conjunctivae normal. Cardiovascular: Rate and Rhythm: Normal rate and regular rhythm. Heart sounds: Normal heart sounds. Pulmonary: Effort: Pulmonary effort is normal. Breath sounds: Normal breath sounds. Abdominal: General: Bowel sounds are normal. Palpations: Abdomen is soft. Tenderness: There is abdominal tenderness in the epigastric area and left upper quadrant. There is no guarding or rebound. Musculoskeletal: Right lower leg: No edema. Left lower leg: No edema. Skin: General: Skin is warm and dry. Neurological: Mental Status: She is alert. Psychiatric: Mood and Affect: Mood normal. Behavior: Behavior normal. Relevant Results Labs in last 18 hours CBC WBC ?? Hb ?? Plt ?? Hct ?? ANC ?? INR ??, PTT ??, Anti-Xa ?? BMP Na 142 Cl 106 BUN 5 (L) Glu 84 K 5.3 (H) Co2 14 (L) Cr 0.98 Ca 8.5 (L) iCa ?? Mg ??, Phos ?? Lactate ?? LFT AST ?? AlkPhos ?? T Prot ?? ALK ?? Bili ?? Alb ?? D.Bili ?? Assessment and Plan Lila Mcnally is a 34y F w/ PMH chronic pancreatitis, cholelithiasis s/p cholecystectomy complicated by choledocholithiasis s/p ERCP 05/13, obesity who presented to ED for 3 days of severe epigastric pain, nausea, and 1 day coffee-ground hematemesis. #Non-bleeding duodenal ulcer due to NSAID use - Presented with 3 days of epigastric pain in setting of recent NSAID use and smoking, coffee-ground hematemesis - CT 10/21 showing stranding and outpouching in first portion of the duodenum, likely representing duodenal ulcer - Not likely pancreatitis as lipase is wnl and pancreas imaging is not significant - EGD 10/22 showed 1.5cm duodenal ulcer and healing gastric ulcer - Recheck of LFTs and lipase 10/26- were all wnl PLAN: - Patient has improving pain and nausea - Continue pantoprazole PO 40mg BID, sucralfate, ODT zofran, phenergan 12.5mg q4hrs PRN - Continue oxycodone 10mg scheduled q6hrs, oxycodone 5mg q4hrs PRN for breakthrough pain, tylenol 650mg PO q6hrs - Consider decrease in pain medication dose or frequency tomorrow #JYOTSNA, likely secondary to hypovolemia, resolved - Cr 0.94->0.98 today, got 125mL/hr yesterday, patient able to tolerate liquids PO, no signs of hypervolemia PLAN: - Continue IV LR 125mL/hr, patient will continue fluids PO, recheck Cr in AM #Anxiety - Patient reports increase in anxiety during hospitalization and fear of pain, regular tearful affect, currently on venlafaxine 150mg - Discontinue amitriptyline 5mg nightly, start nortriptyline 10mg nightly for anxiety and decreasedside effect profile #Hyperkalemia #Acidosis - Patient reports having her morning labs taken from IV line without time between stopping her fluids and drawing blood - Likely secondary to dilution, recheck in AM #Constipation, resolved - KUB 10/27 showed nonobstructive stool burden without ileus - Patient received bisacodyl and then mag citrate, after which she had a stool - Continue daily miralax and senna #Irregular menses - Patient has an episode of prolonged light menses without pain or significant blood loss - CT 10/28 mentioned an enhancing nodule within the uterus and normal ovaries, CT 10/21 stated unremarkable pelvic viscera - Etiologies could include decreased intake, stress, leiomyoma, recommended patient follow up with food service aide after discharge #Right breast mass - CT 10/28 showed solid mass in right breast measuring 24mm which was present in previous CT done 2016, recommend f/u with PCP #Tinea corporis - Patient has right lower extremity lesion reportedly present for 2 years and reportedly biopsied and found to be fungal, taking anti-fungal for it, likely clotrimazole - Continue clotrimazole cream BID - Have patient follow up with PCP after discharge Chronic medial conditions #Class 1 obesity (POA) - BMI 33.28, complicates all level of care #Bipolar depression - Continue home venlafaxine and latuda #Fibromyalgia - Continue home pregabalin and methocarbamol #Tobacco use - NRT during hospitalization #Chronic pancreatitis - Taking home DAMIAN hooper showed active cumulative morphine equivalent of 15 with recent prescriptions of [place] Trevose - 12 doses 09/27, 7 doses 10/04, 10 doses 10/07, 12 doses 10/20 F: 125mL/hr LR E: Replete PRN N: Regular diet VTE: pLOV Dispo: Pending improved pain and tolerating food PO, likely 1-3 days Jose Deleon, MS4 Cosigned by Dipika Caputo MD at 11/01/2020 1:46 PM EDT Associated attestation - Dipika Caputo MD - 11/01/2020 1:46 PM EDT I saw and evaluated the patient with the medical student. I discussed the case with the medical student and agree with the findings and plan as documented. I personally performed the Exam and MedicalDecision Making. Tolerating some PO diet. # Acute on chronic pancreatitis: c/w pain management, LR, advance diet as tolerated, oxycodone q6H 10mg, q4H 5PRN # Duodenal ulcer 2/2 NSAIDs: avoid NSAIDs, c/w pantoprazole BID, and sucralfate * Progress Notes - Jose Deleon - 10/31/2020 12:21 PM EDT Progress Note Subjective Patient was able to tolerate pain overnight and did not receive IV dilaudid. She continues to have nausea but hasn't had vomiting. She did not eat much yesterday because she was brought tomato soup twice. She urinated well and had a bowel movement yesterday. She has a lesion on her lower right leg which she states has been there for two years after she had a wound on her rodríguez. She says it has been growing slowly since then but had a biopsy and was told it was a fungal lesion. She has been usinga topical antifungal cream on the lesion with improvement, states the name starts with a C . Review of Systems Constitutional: Positive for appetite change. Negative for fever. Respiratory: Negative for shortness of breath. Cardiovascular: Negative for chest pain. Gastrointestinal: Positive for abdominal pain and nausea. Negative for constipation, diarrhea and vomiting. Genitourinary: Negative for difficulty urinating and dysuria. Objective Last Recorded Vitals Blood pressure 130/79, pulse 62, temperature 36.4 ??C (97.6 ??F), resp. rate 16, height 1.651 m (5'5 ), weight 90.7 kg (200 lb), SpO2 100 %. Physical Exam Constitutional: Appearance: She is obese. Eyes: Conjunctiva/sclera: Conjunctivae normal. Cardiovascular: Rate and Rhythm: Normal rate and regular rhythm. Heart sounds: Normal heart sounds. Pulmonary: Effort: Pulmonary effort is normal. Breath sounds: Normal breath sounds. Abdominal: General: Bowel sounds are normal. Palpations: Abdomen is soft. Tenderness: There is abdominal tenderness in the epigastric area and left upper quadrant. There is no guarding or rebound. Musculoskeletal: Right lower leg: No edema. Left lower leg: No edema. Skin: General: Skin is warm and dry. Neurological: Mental Status: She is alert. Psychiatric: Mood and Affect: Mood normal. Behavior: Behavior normal. Relevant Results Labs in last 18 hours CBC WBC ?? Hb ?? Plt ?? Hct ?? ANC ?? INR ??, PTT ??, Anti-Xa ?? BMP Na 143 Cl 103 BUN 5 (L) Glu 87 K 4.4 Co2 23 Cr 0.94 Ca 9.7 iCa ?? Mg ??, Phos ?? Lactate ?? LFT AST ?? AlkPhos ?? T Prot ?? ALK ?? Bili ?? Alb ?? D.Bili ?? Urine culture 10/29 showed 10,000-100,000 CFU/mL with mixed urogenital, fecal, or skin ángela present Assessment and Plan Lila Mcnally is a 34y F w/ PMH chronic pancreatitis, cholelithiasis s/p cholecystectomy complicated by choledocholithiasis s/p ERCP 05/13, obesity who presented to ED for 3 days of severe epigastric pain, nausea, and 1 day coffee-ground hematemesis. #Non-bleeding duodenal ulcer due to NSAID use - Presented with 3 days of epigastric pain in setting of recent NSAID use and smoking, coffee-ground hematemesis - CT 10/21 showing stranding and outpouching in first portion of the duodenum, likely representing duodenal ulcer - Not likely pancreatitis as lipase is wnl and pancreas imaging is not significant - EGD 10/22 showed 1.5cm duodenal ulcer and healing gastric ulcer - Recheck of LFTs and lipase 10/26- were all wnl PLAN: - Patient has improving pain and nausea - Continue pantoprazole PO 40mg BID, sucralfate, ODT zofran, phenergan 12.5mg q4hrs PRN - Continue oxycodone 10mg scheduled q6hrs, oxycodone 5mg q4hrs PRN for breakthrough pain, tylenol 650mg PO q6hrs #JYOTSNA, likely secondary to hypovolemia, resolved - Cr 1.22->0.94 today, got 125mL/hr yesterday along with 500mL bolus IVF, patient able to tolerate small amount of liquids PO, no signs of hypervolemia PLAN: - Continue IV LR 125mL/hr, patient will continue fluids PO, recheck Cr in AM #Tinea corporis - Patient has right lower extremity lesion reportedly present for 2 years and reportedly biopsied and found to be fungal, taking anti-fungal for it, likely clotrimazole - Start clotrimazole cream BID - Have patient follow up with PCP after discharge #Anxiety - Patient reports increase in anxiety during hospitalization and fear of pain, regular tearful affect, currently on venlafaxine 150mg - Continue amitriptyline 5mg nightly for anxiety #Constipation, resolved - KUB 10/27 showed nonobstructive stool burden without ileus - Patient received bisacodyl and then mag citrate, after which she had a stool - Continue daily miralax and senna #Irregular menses - Patient has an episode of prolonged light menses without pain or significant blood loss - CT 10/28 mentioned an enhancing nodule within the uterus and normal ovaries, CT 10/21 stated unremarkable pelvic viscera - Etiologies could include decreased intake, stress, leiomyoma, recommended patient follow up with food service aide after discharge #Right breast mass - CT 10/28 showed solid mass in right breast measuring 24mm which was present in previous CT done 2016, recommend f/u with PCP Chronic medial conditions #Class 1 obesity (POA) #Bipolar depression - Continue home venlafaxine and latuda #Fibromyalgia - Continue home pregabalin and methocarbamol #Tobacco use - NRT during hospitalization #Chronic pancreatitis - Taking home DAMIAN hooper showed active cumulative morphine equivalent of 15 with recent prescriptions of [place] Trevose - 12 doses 09/27, 7 doses 10/04, 10 doses 10/07, 12 doses 10/20 F: 125mL/hr LR E: Replete PRN N: Regular diet VTE: pLOV Dispo: Pending improved pain and tolerating food PO, likely 1-3 days Jose Deleon, MS4 Cosigned by Dipika Caputo MD at 10/31/2020 2:10 PM EDT Associated attestation - Dipika Caputo MD - 10/31/2020 2:10 PM EDT I saw and evaluated the patient with the medical student. I discussed the case with the medical student and agree with the findings and plan as documented. I personally performed the Exam and MedicalDecision Making. Patient doing better managing pain. # Duodenal ulcer 2/2 NSAID use: c/w PPI and sucralfate # Acute on chronic pancreatitis: c/w oxycodone 10q6H, and 5mg q4PRN, full diet as tolerated, will advance as able. * Consults - Farida Eason RD - 10/31/2020 11:18 AM EDT Adult Nutrition Evaluation Note Lila Mcnally 34 y.o. female CSN: [id number] Room/Bed 403/403A Nutrition evaluation type: screen Reason for evaluation: LOS Hospital course: 34 y/o F who was admitted on 10/21 with 3 days of severe epigastric pain, nausea, and 1 day coffee-ground hematemesis. Non-bleeding duodenal ulcer due to NSAID use- EGD 10/22 showed 1.5cm duodenal ulcer and healing gastric ulcer. Plans to obtain KUB to eval for ilesus d/t constipation - now s/p KUB and constipation resolved. Past medical/ surgical history: Past Medical History: Diagnosis Date ??? Anxiety ??? Depression ??? Fibromyalgia ??? GERD (gastroesophageal reflux disease) ??? Hypertension ??? Nicotine dependence ??? Obesity ??? Pancreatitis Past Surgical History: Procedure Laterality Date ??? CHOLECYSTECTOMY ??? ERCP Additional comments: 10/31: Pt endorses nausea and diarrhea. Pt wanting to advance to regular diet to allow for more food options and is planning on discussing this with the team. Pt does not like boost breeze but would like to try Boost Plus Vitals and Basic Assessment: BP: 130/79 Temp: 36.4 ??C (97.6 ??F) Oxygen Therapy: None (Room air) O2 Delivery Method: Nasal cannula Jo Coma Scale Score: 15 Scott Scale Score: 22 Last BM Date: 10/27/20 GI Symptoms: Nausea Allergies: no known food allergies Medications: acetaminophen, 650 mg, Oral, q6h INO amitriptyline, 5 mg, Oral, Nightly calcium carbonate, 500 mg, Oral, BID enoxaparin, 40 mg, Subcutaneous, Daily lurasidone, 40 mg, Oral, Daily before dinner methocarbamol, 500 mg, Oral, TID multivitamin, 1 tablet, Oral, Daily nicotine, 1 patch, Transdermal, Daily Followed by [START ON 12/02/2020] nicotine, 1 patch, Transdermal, Daily Followed by [START ON 12/16/2020] nicotine, 1 patch, Transdermal, Daily ondansetron ODT, 8 mg, Oral, TID with meals oxyCODONE, 10 mg, Oral, q6h pancrelipase (Bjn-Jnzh-Oajp), 2 capsule, Oral, TID with meals pantoprazole, 40 mg, Oral, BID AC polyethylene glycol, 17 g, Oral, BID pregabalin, 150 mg, Oral, TID senna, 17.2 mg, Oral, BID sucralfate, 1 g, Oral, q6h INO venlafaxine XR, 150 mg, Oral, Daily with breakfast lactated Ringer's, 125 mL/hr, Last Rate: 125 mL/hr (10/30/20 0115) gi cocktail, melatonin, oxyCODONE, prochlorperazine, promethazine, [COMPLETED] Insert peripheral IVAND [COMPLETED] Saline lock IV AND sodium chloride Meds were reviewed: Yes Labs: Lab Results Component Value Date WBC 5.00 10/30/2020 HGB 12.1 10/30/2020 HCT 35.9 10/30/2020 MCV 88 10/30/2020 PLT 182 10/30/2020 Lab Results Component Value Date GLUCOSE 87 10/31/2020 CALCIUM 9.7 10/31/2020 NA 143 10/31/2020 K 4.4 10/31/2020 CO2 23 10/31/2020 CL 103 10/31/2020 BUN 5 (L) 10/31/2020 CREATININE 0.94 10/31/2020 Lab Results Component Value Date ALBUMIN 4.0 10/30/2020 Lab Results Component Value Date CALCIUM 9.7 10/31/2020 PHOS 4.9 (H) 10/30/2020 Lab Results Component Value Date HGBA1C 5.3 10/18/2020 Lab Results Component Value Date CRP 3.0 10/21/2020 Lab Results Component Value Date ALT 15 10/28/2020 AST 18 10/28/2020 ALKPHOS 64 10/28/2020 BILITOT <0.2 (L) 10/28/2020 total protein: 5.8 Anthropometrics: Admit Height (CM) 165.1 cm Admit Weight (KG) 90.7 kg Current Weight (KG) 90.7 kg BMI 33.3 Weight Evaluation Obese Class 1 IBW (KG) 56.7 kg Percent IBW 159.9% Adjusted Weight (KG) 65 kg Weight History Per EMR: Wt Readings from Last 10 Encounters: 10/21/20 90.7 kg (200 lb) 10/18/20 90.7 kg (200 lb) 10/18/20 79.8 kg (176 lb) 01/25/16 80.7 kg (178 lb) Reported UBW: 214# Additional Comments Pt reports 7# loss x 2 weeks. However pt EMR pt currently 14# below UBW - This be represent a 6.5% wt loss x possibly 2 weeks per pt reported timeline- severe if accurate Estimated Needs: Provided Based On Weight Used Kcal/day 7987-6450 25-30 ABW Protein/day 78 1.2 ABW Fluid/day 1ml/kcal or per MD team Additional Comments Current Nutrition Intake: Current Diet Order full liquids low fat Avg PO Intakes per RN Flowsheets 28% x 9 meals Oral Nutrition Supplements Boost Breeze TID (750 kcal, 27g protein) Diet EDU Provided Will monitor need throughout LOS Baptism/ Cultural Needs Ethnic needs not identified at this time Additional Comments Nutrition Focused Physical Exam: Physical exam performed on (date): 10/26/20 Temples (muscles): None Clavicle (muscle): None Shoulder (muscle): None Interosseous (muscle): None Orbital (fat): None Triceps (fat): None Assessment of Malnutrition: Meets Criteria For: Severe malnutrition In Context Of: Acute illness/ injury Based On: Inadequate energy intake, Weight loss Present on Admission: Yes Weight Trends 6.5% wt loss x possibly 2 weeks per pt reported timeline- severe if accurate Energy Intake Trends Pt reports~50% PO intake avg x 6 months with some days of good intakes and other with very poor intakes Additional Comments Nutrition Problem: Inadequate energy intake related to current clinical status as evidenced by 50- 60% PO x 6 months -->28% x 9 meals. Status of Nutrition Diagnosis: Ongoing Nutrition Interventions and Recommendations: - Continue low fat full liquids- can adjust to low fat if pt requests - Discontinue Boost Breeze TID and add boost plus to supplement PO intakes - Continue MVI with mineral daily. - Rec obtaining weight 1x/week. Nutrition Monitoring and Goals: - Will monitor PO intake, weight status, lab results, GI tolerance, and skin integrity. - Pt will tolerate >75% avg of meal intakes. (not met, continue) - Pt will maintain weight this admission. (Monitoring) Discharge Planning: RD to monitor for nutrition related discharge needs. Acuity Level: [address] * Progress Notes - Monae Corcoran - 10/31/2020 11:01 AM EDT [facility] [place] patient enrolled in [facility]/BT for 30 day transition period. Transitions assist with education and support post hospital stay. Home Clinical Documentation Spec will see the patient within 48 hours of discharge and follow at home and telephonically for 30 days. Hospital Clinical Documentation Spec will follow this hospital stay. Edita ent is agreeable to the program. * Progress Notes - Jose Deleon Chapo - 10/30/2020 2:47 PM EDT Progress Note Subjective Patient did well for most of yesterday however got 2 doses of IV dilaudid overnight due to increased abdominal pain. She tolerated small amounts of liquid without vomiting but did not eat solid foods. She had an episode of diarrhea and is urinating clear-yellow. She states that she started menses the day before her admission and since then has had a small amount of bright red blood and clots whenwiping after urination. Normally her menses last 3 days with one day of heavy flow. Review of Systems Constitutional: Positive for appetite change. Negative for fever. Respiratory: Negative for shortness of breath. Cardiovascular: Negative for chest pain. Gastrointestinal: Positive for abdominal pain, diarrhea and nausea. Negative for constipation and vomiting. Genitourinary: Negative for difficulty urinating and dysuria. Objective Last Recorded Vitals Blood pressure 129/87, pulse 87, temperature 36.8 ??C (98.2 ??F), temperature source Oral, resp. rate 16, height 1.651 m (5' 5 ), weight 90.7 kg (200 lb), SpO2 97 %. Physical Exam Constitutional: Appearance: She is obese. Eyes: Conjunctiva/sclera: Conjunctivae normal. Cardiovascular: Rate and Rhythm: Normal rate and regular rhythm. Heart sounds: Normal heart sounds. Pulmonary: Effort: Pulmonary effort is normal. Breath sounds: Normal breath sounds. Abdominal: General: Bowel sounds are normal. Palpations: Abdomen is soft. Tenderness: There is abdominal tenderness in the epigastric area and left upper quadrant. There is no guarding or rebound. Musculoskeletal: Right lower leg: No edema. Left lower leg: No edema. Skin: General: Skin is warm and dry. Neurological: Mental Status: She is alert. Psychiatric: Mood and Affect: Mood normal. Behavior: Behavior normal. Relevant Results Labs in last 18 hours CBC WBC 5.00 Hb 12.1 Plt 182 Hct 35.9 ANC ?? INR ??, PTT ??, Anti-Xa ?? BMP Na 138 Cl 102 BUN 7 Glu 92 K 4.2 Co2 24 Cr 1.22 (H) Ca 8.9 iCa ?? Mg ??, Phos 4.9 (H) Lactate ?? LFT AST ?? AlkPhos ?? T Prot ?? ALK ?? Bili ?? Alb ?? D.Bili ?? Urinalysis with reflex microscopic - clean catch Status: Final result Ref Range & Units 10/29/20 1820 Color, Urine Yellow Clarity, Urine Clear Spec [place], Urine <=1.005 to >=1.030 <=1.005 pH, Urine 4.5 to 8 8.0 Protein, Urine Negative mg/dL Negative Glucose, Urine Negative mg/dL Negative Ketones, Urine Negative mg/dL Negative Blood, Urine Negative LargeAbnormal Bilirubin, Urine Negative Negative Urobilinogen, Urine 0.2 to 1.0 mg/dL 0.2 Leukocytes, Urine Negative Negative Nitrite, Urine Negative Negative RBC, Urine 0 to 3 /HPF 11 - 15Abnormal WBC, Urine 0 to 5 /HPF 0 - 5 Squamous Epithelial Cells 0 to 5 /HPF 0 - 5 Hyaline Casts 0 to 8 /LPF 0 - 8 Bacteria, Urine Negative Negative Assessment and Plan Lila Mcnally is a 34y F w/ [facility] [place] chronic pancreatitis, cholelithiasis s/p cholecystectomy complicated by choledocholithiasis s/p ERCP 05/13, obesity who presented to ED for 3 days of severe epigastric pain, nausea, and 1 day coffee-ground hematemesis. #Non-bleeding duodenal ulcer due to NSAID use - Presented with 3 days of epigastric pain in setting of recent NSAID use and smoking, coffee-ground hematemesis - CT 10/21 showing stranding and outpouching in first portion of the duodenum, likely representing duodenal ulcer - Not likely pancreatitis as lipase is wnl and pancreas imaging is not significant - EGD 10/22 showed 1.5cm duodenal ulcer and healing gastric ulcer - Recheck of LFTs and lipase 10/26- were all wnl PLAN: - Patient has improving pain and nausea - Continue pantoprazole PO 40mg BID, sucralfate, ODT zofran, phenergan 12.5mg q4hrs PRN - Continue oxycodone 10mg scheduled q6hrs, oxycodone 5mg q4hrs PRN for breakthrough pain, tylenol 650mg PO q6hrs, discontinue IV dilaudid - MRI abdomen scheduled for 10/31 outpatient #Irregular menses - Patient has an episode of prolonged light menses without pain or significant blood loss - CT 10/28 mentioned an enhancing nodule within the uterus and normal ovaries, CT 10/21 stated unremarkable pelvic viscera - Etiologies could include decreased intake, stress, leiomyoma, recommended patient follow up with food service aide after discharge #JYOTSNA, likely secondary to hypovolemia - Cr 0.93->1.22 today, got 125mL/hr yesterday along with 500mL bolus IVF, patient able to tolerate small amount of liquids PO PLAN: - Continue IV LR 125mL/hr, patient will continue fluids PO, recheck Cr in AM #Anxiety - Patient reports increase in anxiety during hospitalization and fear of pain, regular tearful affect, currently on venlafaxine 150mg - Continue amitriptyline 5mg nightly for anxiety #Constipation, resolved - KUB showed nonobstructive stool burden without ileus - Patient received bisacodyl and then mag citrate, after which she had a stool - Continue daily miralax and senna #Right breast mass - CT 10/28 showed solid mass in right breast measuring 24mm which was present in previous CT done 2016, recommend f/u with PCP Chronic medial conditions #Class 1 obesity (POA) #Bipolar depression - Continue home venlafaxine and latuda #Fibromyalgia - Continue home pregabalin and methocarbamol #Tobacco use - NRT during hospitalization #Chronic pancreatitis - Taking home DAMIAN hooper showed active cumulative morphine equivalent of 15 with recent prescriptions of [place] Trevose - 12 doses 09/27, 7 doses 10/04, 10 doses 10/07, 12 doses 10/20 F: 125mL/hr LR E: Replete PRN N: Regular diet VTE: pLOV Dispo: Pending improved pain and tolerating food PO, likely 1-3 days Jose Deleon, MS4 Cosigned by Dipika Caputo MD at 10/30/2020 5:55 PM EDT Associated attestation - Dipika Caputo MD - 10/30/2020 5:55 PM EDT I saw and evaluated the patient with the medical student. I discussed the case with the medical student and agree with the findings and plan as documented. I personally performed the Exam and MedicalDecision Making. Patient reports some blood in her urine. She notes improvement of her abdominal pain. She is tolerating liquids but has not been eating much. She reports 1 episode of small amount of diarrhea. # Acute on chronic abdominal pain 2/2 duodenal ulcer vs chronic pancreatitis - c/w oxycodone 10mg every 6H, 5mg q4H PRN, discontinue IV dilaudid - c/w pantoprazole BID and sucralfate - c/w creon * Progress Notes - Jose Cat MD - 10/29/2020 1:19 PM EDT Subjective: No acute events overnight. Patient states she slept well last night and feels her pain is better controlled currently. She did tolerate some PO intake with jello and broths without issue and is willing to try Full Liquid diet today. She continues to have nausea but feels it is also getting better. Patient overall feels much improved today and more optimistic about her pain. She currently denies any new or worsening symptoms. Review of Systems: Review of systems: Gen: Denies fevers. CV: Denies chest pain or palpitations Resp: Denies shortness of breath or cough GI: Admits to abdominal pain and nausea (but improving). Denies vomiting. Last BM was 2 -3 days ago Neuro: Denies headaches Objective: Blood pressure 130/88, pulse 87, temperature 36.7 ??C (98.1 ??F), temperature source Oral, resp. rate 16, height 1.651 m (5' 5 ), weight 90.7 kg (200 lb), SpO2 95 %. Physical Exam: GEN: NAD, interactive with the interview and exam. Sitting up in bed, appears comfortable EYES: Anicteric sclerae, EOMI HENT: NC/AT, MMM CV: RRR, no M/R/G; no lower extremity edema. RESP: CTAB with good effort; no wheezes, rhonchi, or crackles GI: normal bowel sounds; abdomen soft, non-distended, no masses. Tenderness to palpation of LUQ. NEUR: awake, alert, interactive, no focal deficits PSYCH: normal mood and affect Hospital Medications: Scheduled: acetaminophen, 650 mg, Oral, q6h INO amitriptyline, 5 mg, Oral, Nightly calcium carbonate, 500 mg, Oral, BID enoxaparin, 40 mg, Subcutaneous, Daily lactated Ringer's, 500 mL, Intravenous, Once lurasidone, 40 mg, Oral, Nightly methocarbamol, 500 mg, Oral, TID multivitamin, 1 tablet, Oral, Daily nicotine, 1 patch, Transdermal, Daily Followed by [START ON 12/02/2020] nicotine, 1 patch, Transdermal, Daily Followed by [START ON 12/16/2020] nicotine, 1 patch, Transdermal, Daily ondansetron ODT, 8 mg, Oral, TID with meals oxyCODONE, 10 mg, Oral, q6h pancrelipase (Iup-Kjom-Cjmp), 2 capsule, Oral, TID with meals pantoprazole, 40 mg, Oral, BID AC polyethylene glycol, 17 g, Oral, BID pregabalin, 150 mg, Oral, TID senna, 17.2 mg, Oral, BID sucralfate, 1 g, Oral, q6h INO venlafaxine XR, 150 mg, Oral, Daily with breakfast Continuous: lactated Ringer's, 125 mL/hr, Last Rate: 125 mL/hr (10/29/20 0621) As needed: gi cocktail, 30 mL, 4x daily PRN HYDROmorphone, 0.25 mg, q6h PRN melatonin, 6 mg, Nightly PRN oxyCODONE, 5 mg, q4h PRN prochlorperazine, 10 mg, q6h PRN promethazine, 12.5 mg, q4h PRN sodium chloride, 10 mL, q8h PRN Data: Labs (in last 24 hours): CBC: No results found for: WBC, RBC, HGB, HCT, PLT, MCV, MCH, MCHC, RDW, NRBC Differential: No results found for: WBC, NEUTOPHILPCT, LYMPHOPCT, MONOPCT, EOSPCT, ANEUT Coagulation: No results found for: INR, PT, PTT, CLFGN Renal: Lab Results Component Value Date NA 137 10/29/2020 K 4.0 10/29/2020 CL 101 10/29/2020 CO2 23 10/29/2020 BUN 6 (L) 10/29/2020 CREATININE 0.93 10/29/2020 GLUCOSE 80 10/29/2020 CALCIUM 8.7 (L) 10/29/2020 MG 2.2 10/29/2020 Liver: No results found for: AST, ALT, ALPHO, BILITOT, BILIDIR Glucose: No results found for: PGLU Lab Results Component Value Date HGBA1C 5.3 10/18/2020 Microbiology: Results No results found for the last 48 hours. Imaging (in last 24 hours): Assessment and plan: Lila Mcnally is a 34 y.o. female with PMHx of chronic pancreatitis, cholelithiasis s/p cholecystectomy complicated by de estella choledocholithiasis s/p ERCP 05/13, obesity who presented to ED for 3 days of severe epigastric pain, nausea, and 1 day coffee-ground hematemesis. Patient was found to have a duodenal ulcer and healing gastric ulcer on EGD on 10/22. Patient currently remains admitted due to pain control issues though hemoglobin has been stable and no signs/symptoms of bleeding. Patient is currently stable on room air. #Non-bleeding duodenal ulcer due to NSAID use - Presented with 3 days of epigastric pain in setting of recent NSAID use and smoking, coffee-ground hematemesis - CT 10/21 showing stranding and outpouching in first portion of the duodenum, likely representing duodenal ulcer - Not likely pancreatitis as lipase is wnl and pancreas imaging is not significant - EGD 10/22 showed 1.5cm duodenal ulcer and healing gastric ulcer - Recheck of LFTs and lipase 10/26-4 were all wnl - Patient continues to have pain and nausea, currently no emesis PLAN: -??Continue scheduled oxycodone to 10 mg PO q 6 hrs - Will advance diet to Full Liquids today per patient request - Continue pantoprazole??PO??40mg BID, sucralfate, ODT zofran - Continue Promethazine 12.5 mg PO PRN - Continue oxycodone 5mg q4hrs PRN for breakthrough pain, and IV dilaudid 0.25mg q6hrs if oxycodonenot successful,??continue tylenol 650mg PO q6hrs -??Continue??IV LR 125mL/hr as patient still tolerating minimal PO intake - MRI abdomen scheduled for 10/31 outpatient ?? # Non-oliguric JYOTSNA, likely secondary to poor PO intake - Creatinine elevated today to 0.93, was 0.5 yesterday - Likely poor PO intake component Plan: - 500 mL bolus of LR - continue mIVF with LR 125 mL/hr - Continue to monitor #Abdominal pain - Likely due to non-bleeding duodenal ulcer noted on EGD but given lack of improvement of pain it is unclear if patient is having hyperalgesia given prescription opioid use history for recurrent pancreatitis. - Low concern for de-estella choledocholithiasis given normal LFT's and lipase during this admission, may attempt to MRCP during admission to fully rule this out. - CT A/P on 10/28: No acute abdominal findings. Noted to have 24 mm right breast mass, note on prior imaging since 2017. Plan: - Pain management as above ?? #Anxiety - Patient reports increase in anxiety during hospitalization and fear of pain, regular tearful affect, currently on venlafaxine 150mg - Continue amitriptyline 5mg nightly??for anxiety? Chronic medial conditions #Class 1 obesity - complicates all aspects of care #Bipolar depression - Continue home venlafaxine and latuda #Fibromyalgia - Started on amitriptyline inpatient, Continue home pregabalin and methocarbamol #Tobacco use - NRT during hospitalization #Chronic pancreatitis - Taking home DAMIAN hooper showed active cumulative morphine equivalent of 15 with recent prescriptions of [place] Trevose - 12 doses 09/27, 7 doses 10/04, 10 doses 10/07, 12 doses 10/20 ?? Resolved problems: #Constipation, resolved Diet Adult diet Diet texture: Full liquid; Fat restriction: Low Fat DVT prophylaxis Lovenox prophylaxis Code status Full Code Jose Cat MD Internal Medicine/Pediatrics, PGY-4 Cosigned by Dipika Caputo MD at 10/29/2020 2:12 PM EDT Associated attestation - Dipika Caputo MD - 10/29/2020 2:12 PM EDT I saw and evaluated the patient with the resident/fellow. I discussed the case with the resident/fellow and agree with the findings and plan as documented. Patient reports pain is better controlled. Patient reports nausea is also improved. Plan to advanceto full liquids. She plans to reduce her IV dilaudid use today. * Care Plan - Christi Lopez LPN - 10/29/2020 10:53 AM EDT Continue with plan of care. * Progress Notes - Jose Cat MD - 10/28/2020 10:18 AM EDT Subjective: No acute events overnight. Patient states that her pain is about the same as yesterday without any improvement. She feels she could try to eat some today but still feels nauseated. Patient's mother mentioned an outpatient GI plan for MRCP at some point and was hoping to get it done while admitted. Otherwise patient denies any new or worsening symptoms. Review of Systems: Review of systems: Gen: Denies fevers. CV: Denies chest pain or palpitations Resp: Denies shortness of breath or cough GI: Admits to abdominal pain (unchanged from yesterday) and nausea. Denies vomiting, hematemesis, hematochezia, or melena. Last BM yesterday (10/27). Neuro: Denies headaches Objective: Blood pressure (!) 132/96, pulse 89, temperature 36.7 ??C (98 ??F), resp. rate 16, height 1.651 m (5' 5 ), weight 90.7 kg (200 lb), SpO2 96 %. Physical Exam: GEN: NAD, interactive with the interview and exam, sitting up in bed. EYES: anicteric sclerae, EOMI HENT: NC/AT, MMM CV: RRR, no M/R/G; no lower extremity edema RESP: CTAB with good effort; no wheezes, rhonchi, or crackles GI: normal bowel sounds; abdomen soft, non-distended,; no masses. Tenderness to palpation with guarding on LUQ. NEUR: awake, alert, interactive, no focal deficits PSYCH: normal mood and affect Hospital Medications: Scheduled: acetaminophen, 650 mg, Oral, q6h INO amitriptyline, 5 mg, Oral, Nightly calcium carbonate, 500 mg, Oral, BID enoxaparin, 40 mg, Subcutaneous, Daily iohexol, 100 mL, Intravenous, Once in imaging iohexol, 500 mL, Oral, Once in imaging lurasidone, 40 mg, Oral, Nightly magnesium sulfate, 2 g, Intravenous, Once methocarbamol, 500 mg, Oral, TID multivitamin, 1 tablet, Oral, Daily nicotine, 1 patch, Transdermal, Daily Followed by [START ON 12/02/2020] nicotine, 1 patch, Transdermal, Daily Followed by [START ON 12/16/2020] nicotine, 1 patch, Transdermal, Daily ondansetron ODT, 8 mg, Oral, TID with meals oxyCODONE, 10 mg, Oral, q6h pancrelipase ([id number]-[id number]), 2 capsule, Oral, TID with meals pantoprazole, 40 mg, Oral, BID AC polyethylene glycol, 17 g, Oral, BID potassium chloride, 40 mEq, Oral, Once pregabalin, 150 mg, Oral, TID senna, 17.2 mg, Oral, BID sucralfate, 1 g, Oral, q6h INO venlafaxine XR, 150 mg, Oral, Daily with breakfast Continuous: lactated Ringer's, 125 mL/hr, Last Rate: 125 mL/hr (10/26/20 1130) As needed: gi cocktail, 30 mL, 4x daily PRN HYDROmorphone, 0.25 mg, q6h PRN melatonin, 6 mg, Nightly PRN oxyCODONE, 5 mg, q4h PRN prochlorperazine, 10 mg, q6h PRN promethazine, 12.5 mg, q4h PRN sodium chloride, 10 mL, q8h PRN Data: Labs (in last 24 hours): CBC: No results found for: WBC, RBC, HGB, HCT, PLT, MCV, MCH, MCHC, RDW, NRBC Differential: No results found for: WBC, NEUTOPHILPCT, LYMPHOPCT, MONOPCT, EOSPCT, ANEUT Coagulation: No results found for: INR, PT, PTT, CLFGN Renal: Lab Results Component Value Date NA 138 10/28/2020 K 3.3 (L) 10/28/2020 CL 108 (H) 10/28/2020 CO2 18 (L) 10/28/2020 BUN 3 (L) 10/28/2020 CREATININE 0.54 (L) 10/28/2020 GLUCOSE 75 10/28/2020 CALCIUM 7.1 (L) 10/28/2020 MG 1.8 (L) 10/28/2020 Liver: No results found for: AST, ALT, ALPHO, BILITOT, BILIDIR Glucose: No results found for: PGLU Lab Results Component Value Date HGBA1C 5.3 10/18/2020 Microbiology: Results No results found for the last 48 hours. Imaging (in last 24 hours): Assessment and plan: Lila Mcnally is a 34 y.o. female with PMHx of chronic pancreatitis, cholelithiasis s/p cholecystectomy complicated by de estella choledocholithiasis s/p ERCP 05/13, obesity who presented to ED for 3 days of severe epigastric pain, nausea, and 1 day coffee-ground hematemesis. Patient was found to have a duodenal ulcer and healing gastric ulcer on EGD on 10/22. Patient currently remains admitted due to pain control issues though hemoglobin has been stable and no signs/symptoms of bleeding. Patient is currently stable on room air. #Non-bleeding duodenal ulcer due to NSAID use - Presented with 3 days of epigastric pain in setting of recent NSAID use and smoking, coffee-ground hematemesis - CT 10/21 showing stranding and outpouching in first portion of the duodenum, likely representing duodenal ulcer - Not likely pancreatitis as lipase is wnl and pancreas imaging is not significant - EGD 10/22 showed 1.5cm duodenal ulcer and healing gastric ulcer - Recheck of LFTs and lipase 10/26- were all wnl - Patient continues to have pain and nausea, currently no emesis PLAN: - Increased scheduled oxycodone to 10 mg PO q 6 hrs - Will adjust diet to clear liquids given patient preference at this time - Continue pantoprazole PO 40mg BID, sucralfate, ODT zofran - Continue Promethazine 12.5 mg PO PRN - Continue oxycodone 5mg q4hrs PRN for breakthrough pain, and IV dilaudid 0.25mg q6hrs if oxycodonenot successful, continue tylenol 650mg PO q6hrs - Continue IV LR 125mL/hr as patient still tolerating minimal PO intake - MRI abdomen scheduled for 10/31 outpatient #Abdominal pain - Likely due to non-bleeding duodenal ulcer noted on EGD but given lack of improvement of pain it is unclear if patient is having hyperalgesia given prescription opioid use history for recurrent pancreatitis. - Low concern for de-estella choledocholithiasis given normal LFT's and lipase during this admission, may attempt to MRCP during admission to fully rule this out. Plan: - Pain management as above - CT A/P ordered to further evaluate ?? #Anxiety - Patient reports increase in anxiety during hospitalization and fear of pain, regular tearful affect, currently on venlafaxine 150mg - Continue amitriptyline 5mg nightly for anxiety ? #Constipation, resolved - KUB showed nonobstructive stool burden without ileus - Patient received bisacodyl and then mag citrate, after which she had a stool - Continue daily miralax and senna ?? Chronic medial conditions #Class 1 obesity - complicates all aspects of care #Bipolar depression - Continue home venlafaxine and latuda #Fibromyalgia - Started on amitriptyline inpatient, Continue home pregabalin and methocarbamol #Tobacco use - NRT during hospitalization #Chronic pancreatitis - Taking home DAMIAN hooper showed active cumulative morphine equivalent of 15 with recent prescriptions of [place] Trevose - 12 doses 09/27, 7 doses 10/04, 10 doses 10/07, 12 doses 10/20 Resolved problems: JYOTSNA, likely secondary to hypovolemia, resolved Diet Adult diet Diet texture: Clear liquid; Fat restriction: Low Fat DVT prophylaxis Lovenox prophylaxis Code status Full Code F: PO as tolerated, 125 mL/hr LR E: Monitor and replace PRN DVT Ppx: pLOV Jose Cat MD Internal Medicine/Pediatrics, PGY-4 Cosigned by Dipkia Caputo MD at 10/28/2020 1:56 PM EDT Associated attestation - Dipika Caputo MD - 10/28/2020 1:56 PM EDT I saw and evaluated the patient with the resident/fellow. I discussed the case with the resident/fellow and agree with the findings and plan as documented. Dipika Caputo MD # Acute abdominal pain c/b peptic ulcer disease and chronic pancreatitis - schedule 10 oxycodone every 6 hours, 5oxy every4 hours PRN and .25 IV dilaudid every 6 H PRN - PPI, sucralfate - Follow up repeat CT a/p due to worsening pain over the last 2 days * Progress Notes - Adrienne Jose Cowan - 10/27/2020 1:50 PM EDT Progress Note Subjective Patient woke up during the middle of the night with the same stabbing, sharp epigastric pain. She states it was not completely resolved with dilaudid. She continues to have nausea secondary to the pain and has not been able to tolerate food. She can tolerate liquids PO and has not vomited in the last day. After receiving mag citrate yesterday she had a bm and later had diarrhea. She no longer hasthe lower abdominal pain and bloating. She is urinating well. Review of Systems Constitutional: Positive for appetite change. Negative for fever. Respiratory: Negative for shortness of breath. Cardiovascular: Negative for chest pain. Gastrointestinal: Positive for abdominal pain and nausea. Negative for constipation and vomiting. Genitourinary: Negative for difficulty urinating and dysuria. Objective Last Recorded Vitals Blood pressure (!) 156/101, pulse 76, temperature 36.4 ??C (97.6 ??F), temperature source Oral, resp. rate 16, height 1.651 m (5' 5 ), weight 90.7 kg (200 lb), SpO2 98 %. Physical Exam Constitutional: Appearance: She is obese. Eyes: Conjunctiva/sclera: Conjunctivae normal. Cardiovascular: Rate and Rhythm: Normal rate and regular rhythm. Heart sounds: Normal heart sounds. Pulmonary: Effort: Pulmonary effort is normal. Breath sounds: Normal breath sounds. Abdominal: General: Bowel sounds are normal. Tenderness: There is abdominal tenderness in the epigastric area and left upper quadrant. There is no guarding or rebound. Musculoskeletal: Right lower leg: No edema. Left lower leg: No edema. Skin: General: Skin is warm and dry. Neurological: Mental Status: She is alert. Psychiatric: Mood and Affect: Mood is anxious. Affect is tearful. Behavior: Behavior normal. Relevant Results Labs in last 18 hours CBC WBC ?? Hb ?? Plt ?? Hct ?? ANC ?? INR ??, PTT ??, Anti-Xa ?? BMP Na 139 Cl 102 BUN 5 (L) Glu 85 K 4.6 Co2 24 Cr 0.79 Ca 9.1 iCa ?? Mg ??, Phos ?? Lactate ?? LFT AST 26 AlkPhos 72 T Prot 6.6 ALK 14 Bili 0.2 Alb ?? D.Bili ?? Assessment and Plan Lila Mcnally is a 34y F w/ PMH chronic pancreatitis, cholelithiasis s/p cholecystectomy complicated by choledocholithiasis s/p ERCP 05/13, obesity who presented to ED for 3 days of severe epigastric pain, nausea, and 1 day coffee-ground hematemesis. #Non-bleeding duodenal ulcer due to NSAID use - Presented with 3 days of epigastric pain in setting of recent NSAID use and smoking, coffee-ground hematemesis - CT 10/21 showing stranding and outpouching in first portion of the duodenum, likely representing duodenal ulcer - Not likely pancreatitis as lipase is wnl and pancreas imaging is not significant - EGD 10/22 showed 1.5cm duodenal ulcer and healing gastric ulcer - Recheck of LFTs and lipase 10/26- were all wnl - Patient continues to have pain and nausea, currently no emesis PLAN: - Continue pantoprazole PO 40mg BID, sucralfate, ODT zofran - Switch IV phenergan 12.5mg q4hrs to PO - Switch to oxycodone 5mg scheduled q6hrs, oxycodone 5mg q4hrs PRN for breakthrough pain, and IV dilaudid 0.25mg q6hrs if oxycodone not successful, continue tylenol 650mg PO q6hrs - MRI abdomen scheduled for 10/31 outpatient #Anxiety - Patient reports increase in anxiety during hospitalization and fear of pain, regular tearful affect, currently on venlafaxine 150mg - Add amitriptyline 5mg nightly for anxiety #JYOTSNA, likely secondary to hypovolemia, resolved - Cr 0.86->0.79 today, got 125mL/hr yesterday, patient able to tolerate some liquids PO PLAN: - Continue IV LR 125mL/hr, patient will continue fluids PO, recheck Cr in AM #Constipation, resolved - KUB showed nonobstructive stool burden without ileus - Patient received bisacodyl and then mag citrate, after which she had a stool - Continue daily miralax and senna Chronic medial conditions #Class 1 obesity (POA) #Bipolar depression - Continue home venlafaxine and latuda #Fibromyalgia - Continue home pregabalin and methocarbamol #Tobacco use - NRT during hospitalization #Chronic pancreatitis - Taking home DAMIAN hooper showed active cumulative morphine equivalent of 15 with recent prescriptions of [place] Trevose - 12 doses 09/27, 7 doses 10/04, 10 doses 10/07, 12 doses 10/20 F: 125mL/hr LR E: Replete PRN N: Regular diet VTE: pLOV Dispo: Pending improved pain and tolerating food PO, likely 1-3 days Jose Deleon, MS4 Cosigned by Dipika Caputo MD at 10/27/2020 3:12 PM EDT Associated attestation - Dipika Caputo MD - 10/27/2020 3:12 PM EDT I saw and evaluated the patient with the medical student. I discussed the case with the medical student and agree with the findings and plan as documented. I personally performed the Exam and MedicalDecision Making. Patient reports severe LUQ pain. Had 2 Bms yesterday # Acute on chronic abdominal pain - LFTs wnl, lactate wnl - KUB without air, moderate stool - c/w oxycodone 5mg every 6H scheduled, 5mg every 4 hours PRN, .25mcg dilaudid IV every 6 hours PRN - will consider repeat CT a/p if pain not improving or hemodynamically stable * Consults - Farida Eason RD - 10/26/2020 1:22 PM EDT Adult Nutrition Evaluation Note Lila Mcnally 34 y.o. female CSN: [id number] Room/Bed 403/403A Nutrition evaluation type: screen Reason for evaluation: LOS Hospital course: 34 y/o F who was admitted on 10/21 with 3 days of severe epigastric pain, nausea, and 1 day coffee-ground hematemesis. Non-bleeding duodenal ulcer due to NSAID use. Plans to obtain KUB to eval for ilesus d/t constipation Past medical/ surgical history: Past Medical History: Diagnosis Date ??? Anxiety ??? Depression ??? Fibromyalgia ??? GERD (gastroesophageal reflux disease) ??? Hypertension ??? Nicotine dependence ??? Obesity ??? Pancreatitis Past Surgical History: Procedure Laterality Date ??? CHOLECYSTECTOMY ??? ERCP Additional comments: 10/26: Pt endorses nausea and vomiting r/t to pancreas issues. Pt states constipation x > 5 day and is unable to consume any PO. Pt agreeable to boost breeze. Pt reports~50% PO intake avg x 6 monthsand reports ~7# wt loss x 2 weeks. UBW= 214#. Vitals and Basic Assessment: BP: 135/85 Temp: 36.4 ??C (97.5 ??F) Oxygen Therapy: None (Room air) O2 Delivery Method: Nasal cannula Jo Coma Scale Score: 15 Scott Scale Score: 20 Last BM Date: 10/20/20 GI Symptoms: Nausea Allergies: no known food allergies Medications: acetaminophen, 650 mg, Oral, q6h INO enoxaparin, 40 mg, Subcutaneous, Daily lurasidone, 40 mg, Oral, Nightly methocarbamol, 500 mg, Oral, TID nicotine, 1 patch, Transdermal, Daily Followed by [START ON 12/02/2020] nicotine, 1 patch, Transdermal, Daily Followed by [START ON 12/16/2020] nicotine, 1 patch, Transdermal, Daily ondansetron ODT, 8 mg, Oral, TID with meals pancrelipase ([id number]), 2 capsule, Oral, TID with meals pantoprazole, 40 mg, Oral, BID AC polyethylene glycol, 17 g, Oral, BID pregabalin, 150 mg, Oral, TID senna, 17.2 mg, Oral, BID sucralfate, 1 g, Oral, q6h INO venlafaxine XR, 150 mg, Oral, Daily with breakfast lactated Ringer's, 125 mL/hr, Last Rate: 125 mL/hr (10/26/20 1130) gi cocktail, HYDROmorphone, melatonin, oxyCODONE, oxyCODONE, prochlorperazine, promethazine, [COMPLETED] Insert peripheral IV AND [COMPLETED] Saline lock IV AND sodium chloride Meds were reviewed: Yes Labs: Lab Results Component Value Date WBC 4.67 10/23/2020 HGB 10.8 (L) 10/23/2020 HCT 32.6 (L) 10/23/2020 MCV 88 10/23/2020 PLT 199 10/23/2020 Lab Results Component Value Date GLUCOSE 117 (H) 10/26/2020 CALCIUM 8.6 (L) 10/26/2020 NA 138 10/26/2020 K 4.4 10/26/2020 CO2 19 (L) 10/26/2020 CL 101 10/26/2020 BUN 7 10/26/2020 CREATININE 0.86 10/26/2020 Lab Results Component Value Date ALBUMIN 3.4 (L) 10/23/2020 Lab Results Component Value Date CALCIUM 8.6 (L) 10/26/2020 PHOS 3.7 10/22/2020 Lab Results Component Value Date HGBA1C 5.3 10/18/2020 Lab Results Component Value Date CRP 3.0 10/21/2020 Lab Results Component Value Date ALT 12 10/26/2020 AST 22 10/26/2020 ALKPHOS 65 10/26/2020 BILITOT <0.2 (L) 10/26/2020 total protein: 5.8 Anthropometrics: Admit Height (CM) 165.1 cm Admit Weight (KG) 90.7 kg Current Weight (KG) 90.7 kg BMI 33.3 Weight Evaluation Obese Class 1 IBW (KG) 56.7 kg Percent IBW 159.9% Adjusted Weight (KG) 65 kg Weight History Per EMR: Wt Readings from Last 10 Encounters: 10/21/20 90.7 kg (200 lb) 10/18/20 90.7 kg (200 lb) 10/18/20 79.8 kg (176 lb) 01/25/16 80.7 kg (178 lb) Reported UBW: 214# Additional Comments Pt reports 7# loss x 2 weeks. However pt EMR pt currently 14# below UBW - This be represent a 6.5% wt loss x possibly 2 weeks per pt reported timeline- severe if accurate Estimated Needs: Provided Based On Weight Used Kcal/day [id number] 25-30 ABW Protein/day 78 1.2 ABW Fluid/day 1ml/kcal or per MD team Additional Comments Current Nutrition Intake: Current Diet Order Low Fat Avg PO Intakes per RN Flowsheets 58% x 10 meals Oral Nutrition Supplements N/A Diet EDU Provided Will monitor need throughout LOS Baptism/ Cultural Needs Ethnic needs not identified at this time Additional Comments Nutrition Focused Physical Exam: Physical exam performed on (date): 10/26/20 Temples (muscles): None Clavicle (muscle): None Shoulder (muscle): None Interosseous (muscle): None Orbital (fat): None Triceps (fat): None Assessment of Malnutrition: Meets Criteria For: Severe malnutrition In Context Of: Acute illness/ injury Based On: Inadequate energy intake, Weight loss Present on Admission: Yes Weight Trends 6.5% wt loss x possibly 2 weeks per pt reported timeline- severe if accurate Energy Intake Trends Pt reports~50% PO intake avg x 6 months with some days of good intakes and other with very poor intakes Additional Comments Nutrition Problem: Inadequate energy intake related to current clinical status as evidenced by 50- 60% PO x 6 months. Status of Nutrition Diagnosis: New Nutrition Interventions and Recommendations: - Continue low fat - Will add Boost Breeze TID to supplement PO intakes - Rec MVI with mineral daily. - Rec obtaining weight 1x/week. Nutrition Monitoring and Goals: - Will monitor PO intake, weight status, lab results, GI tolerance, and skin integrity. - Pt will tolerate >75% avg of meal intakes. - Pt will maintain weight this admission. Discharge Planning: RD to monitor for nutrition related discharge needs. Acuity Level: [address] * Progress Notes - Jose Deleon - 10/26/2020 11:18 AM EDT Progress Note Subjective Patient had difficult day yesterday, she states her stabbing epigastric pain was the worst it's ever been and needed IV dilaudid to relieve the pain. She has nausea secondary to the pain and vomited several times after eating yesterday. She states that due to the nausea and pain she is afraid to eat and has not eaten since lunch yesterday. She is able to drink fluids. She states she has also beenhaving lower abdominal pain which is dull and non-specific. She is urinating well and has not had abowel movement in around a week. Review of Systems Constitutional: Positive for appetite change. Negative for fever. Respiratory: Negative for shortness of breath. Cardiovascular: Negative for chest pain. Gastrointestinal: Positive for abdominal pain, constipation, nausea and vomiting. Genitourinary: Negative for difficulty urinating and dysuria. Objective Last Recorded Vitals Blood pressure 135/85, pulse 79, temperature 36.4 ??C (97.5 ??F), resp. rate 14, height 1.651 m (5'5 ), weight 90.7 kg (200 lb), SpO2 98 %. Physical Exam Constitutional: Appearance: She is obese. Eyes: Conjunctiva/sclera: Conjunctivae normal. Cardiovascular: Rate and Rhythm: Normal rate and regular rhythm. Heart sounds: Normal heart sounds. Pulmonary: Effort: Pulmonary effort is normal. Breath sounds: Normal breath sounds. Abdominal: General: Bowel sounds are normal. Tenderness: There is abdominal tenderness in the right upper quadrant, epigastric area and left upper quadrant. There is no guarding or rebound. Musculoskeletal: Right lower leg: No edema. Left lower leg: No edema. Skin: General: Skin is warm and dry. Neurological: Mental Status: She is alert. Psychiatric: Mood and Affect: Mood normal. Behavior: Behavior normal. Relevant Results Labs in last 18 hours CBC WBC ?? Hb ?? Plt ?? Hct ?? ANC ?? INR ??, PTT ??, Anti-Xa ?? BMP Na 138 Cl 101 BUN 7 Glu 117 (H) K 4.4 Co2 19 (L) Cr 0.86 Ca 8.6 (L) iCa ?? Mg ??, Phos ?? Lactate ?? LFT AST ?? AlkPhos ?? T Prot ?? ALK ?? Bili ?? Alb ?? D.Bili ?? Assessment and Plan Lila Mcnally is a 34y F w/ PMH chronic pancreatitis, cholelithiasis s/p cholecystectomy complicated by choledocholithiasis s/p ERCP 05/13, obesity who presented to ED for 3 days of severe epigastric pain, nausea, and 1 day coffee-ground hematemesis. #Abdominal pain, worsening - Patient reports that her abdominal pain is worsening and feels different, a sharp, stabbing epigastric pain, etiology of pain unclear as we would suspect decrease in pain from duodenal ulcer after current course of PPI and sucralfate, pt has history of chronic pancreatitis PLAN: - Recheck lipase, liver panel, lactate, and b-hydroxybutyric acid to evaluate other causes of pain besides duodenal ulcer - Get recommendations from GI, consider MRCP as patient is scheduled to receive one outpatient - Continue IV dilaudid 0.25mg q2hrs, add oxycodone 10mg q4hrs along with 5mg q4hrs, patient not to exceed 10mg every 4 hours, continue tylenol 650mg PO q6hrs #Non-bleeding duodenal ulcer due to NSAID use - Presented with 3 days of epigastric pain in setting of recent NSAID use and smoking, coffee-ground hematemesis - CT 10/21 showing stranding and outpouching in first portion of the duodenum, likely representing duodenal ulcer - Not likely pancreatitis as lipase is wnl and pancreas imaging is not significant - EGD 10/22 showed 1.5cm duodenal ulcer and healing gastric ulcer - Patient continues to have pain and nausea but is improving, no vomiting PLAN: - Continue pantoprazole PO 40mg BID, sucralfate, ODT zofran #JYOTSNA, likely secondary to hypovolemia, resolved - Cr 0.71->0.86 today, got 100mL/hr yesterday, patient able to tolerate some liquids PO PLAN: - Increase IV LR to 125mL/hr, patient will increase fluids PO, recheck Cr in AM #Constipation - Patient still not had BM, got senna and miralax yesterday, bowel sounds present - Will add bisacodyl suppository, consider mag citrate if no bm by this evening - Will obtain KUB to evaluate for ileus Chronic medial conditions #Class 1 obesity (POA) #Bipolar depression - Continue home venlafaxine and latuda #Fibromyalgia - Continue home pregabalin and methocarbamol #Tobacco use - NRT during hospitalization #Chronic pancreatitis - Taking home indiareza DAMIAN showed active cumulative morphine equivalent of 15 with recent prescriptions of [place] Trevose - 12 doses 09/27, 7 doses 10/04, 10 doses 10/07, 12 doses 10/20 F: 75mL/hr LR E: Replete PRN N: Regular diet VTE: pLOV Dispo: Pending improved pain and tolerating food PO, likely 1-3 days Jose Deleon, MS4 Cosigned by Dipika Caputo MD at 10/26/2020 2:35 PM EDT Associated attestation - Dipika Caputo MD - 10/26/2020 2:35 PM EDT I saw and evaluated the patient with the medical student. I discussed the case with the medical student and agree with the findings and plan as documented. I personally performed the Exam and MedicalDecision Making. # Progressive abdominal pain - possibly 2/2 chronic pancreatitis, vs constipation - treat constipation with miralax, senna, bisacodyl, possible enema vs mag citrate - Follow up KUB, lipase and lfts - pain control with oxycodone and dilaudid # Peptic ulcer disease 2/2 NSAIDs - c/w pantoprazole BID, sucralfate, zofran * Care Plan - Lamonte Ngo - 10/25/2020 2:19 PM EDT Pt reported nausea and vomiting after lunch. MD notified. Problem: Adult Inpatient Plan of Care Goal: Plan of Care Review Outcome: Ongoing, Progressing Flowsheets (Taken 10/25/2020 1419) Plan of Care Reviewed With: patient family Goal: Patient-Specific Goal (Individualized) Outcome: Ongoing, Progressing Goal: Absence of Hospital-Acquired Illness or Injury Outcome: Ongoing, Progressing Goal: Optimal Comfort and Wellbeing Outcome: Ongoing, Progressing Goal: Readiness for Transition of Care Outcome: Ongoing, Progressing * Progress Notes - Jose Deleon Chapo - 10/25/2020 12:17 PM EDT Progress Note Subjective Patient reports improvement of her epigastric and LUQ pain since yesterday, she had a dose of IV dilaudid last night. She ate some food yesterday and was able to tolerate liquids. She continues to have nausea and vomited after eating a muffin and bagel today. She has not had a bowel movement yet but did not receive her miralax the past few days. She is urinating often, clear. Review of Systems Constitutional: Positive for appetite change. Negative for fever. Respiratory: Negative for shortness of breath. Cardiovascular: Negative for chest pain. Gastrointestinal: Positive for abdominal pain, constipation and nausea. Negative for vomiting. Genitourinary: Negative for difficulty urinating and dysuria. Objective Last Recorded Vitals Blood pressure (!) 134/91, pulse (!) 168, temperature 36.7 ??C (98 ??F), resp. rate 18, height 1.651 m (5' 5 ), weight 90.7 kg (200 lb), SpO2 100 %. Physical Exam Constitutional: Appearance: She is obese. Eyes: Extraocular Movements: Extraocular movements intact. Conjunctiva/sclera: Conjunctivae normal. Cardiovascular: Rate and Rhythm: Normal rate and regular rhythm. Pulses: Normal pulses. Heart sounds: Normal heart sounds. Pulmonary: Effort: Pulmonary effort is normal. Breath sounds: Normal breath sounds. Abdominal: General: Bowel sounds are normal. Palpations: Abdomen is soft. Tenderness: There is abdominal tenderness in the right upper quadrant, epigastric area and left upper quadrant. There is no guarding or rebound. Musculoskeletal: Right lower leg: No edema. Left lower leg: No edema. Skin: General: Skin is warm and dry. Neurological: Mental Status: She is alert. Psychiatric: Mood and Affect: Mood normal. Behavior: Behavior normal. Relevant Results Labs in last 18 hours CBC WBC ?? Hb ?? Plt ?? Hct ?? ANC ?? INR ??, PTT ??, Anti-Xa ?? BMP Na 138 Cl 102 BUN 8 Glu 86 K 3.8 Co2 27 Cr 0.71 Ca 8.9 iCa ?? Mg 2.0, Phos ?? Lactate ?? LFT AST ?? AlkPhos ?? T Prot ?? ALK ?? Bili ?? Alb ?? D.Bili ?? Assessment and Plan Lila Mcnally is a 34y F w/ PMH chronic pancreatitis, cholelithiasis s/p cholecystectomy complicated by choledocholithiasis s/p ERCP 05/13, obesity who presented to ED for 3 days of severe epigastric pain, nausea, and 1 day coffee-ground hematemesis. #Non-bleeding duodenal ulcer due to NSAID use - Presented with 3 days of epigastric pain in setting of recent NSAID use and smoking, coffee-ground hematemesis - CT 10/21 showing stranding and outpouching in first portion of the duodenum, likely representing duodenal ulcer - Not likely pancreatitis as lipase is wnl and pancreas imaging is not significant - EGD 10/22 showed 1.5cm duodenal ulcer and healing gastric ulcer - Patient continues to have pain and nausea but is improving, no vomiting PLAN: - Continue pantoprazole PO 40mg BID, sucralfate, ODT zofran - Continue oxycodone 5mg q4hrs, continue tylenol 650mg PO q6hrs #JYOTSNA, likely secondary to hypovolemia, resolved - Cr 1.14->0.71 today, yesterday increased IVF to 125mL/hr and gave 500mL bolus, patient able totolerate more liquids PO PLAN: - Decrease IV LR to 100mL/hr, patient will increase fluids PO, recheck Cr in AM #Constipation - Patient still not had BM, she was not receiving scheduled laxatives, today got miralax and senna - Watch for resolution, will consider bisacodyl or mag citrate if no bowel movement by tomorrow Chronic medial conditions #Class 1 obesity (POA) #Bipolar depression - Continue home venlafaxine and latuda #Fibromyalgia - Continue home pregabalin and methocarbamol #Tobacco use - NRT during hospitalization #Chronic pancreatitis - Taking home DAMIAN hooper showed active cumulative morphine equivalent of 15 with recent prescriptions of [place] Trevose - 12 doses 09/27, 7 doses 10/04, 10 doses 10/07, 12 doses 10/20 F: 75mL/hr LR E: Replete PRN N: Regular diet VTE: pLOV Dispo: Pending improved pain and tolerating food PO, likely 1-2 days Jose Deleon, MS4 Cosigned by Dipika Caputo MD at 10/25/2020 5:02 PM EDT Associated attestation - Dipika Caputo MD - 10/25/2020 5:02 PM EDT I saw and evaluated the patient with the medical student. I discussed the case with the medical student and agree with the findings and plan as documented. I personally performed the Exam and MedicalDecision Making. Notes continued pain, but controlled with oxycodone and 2 doses of IV dilaudid in the last 24 hours. # Duodenal and gastric ulcer c/b nausea vomiting and abdominal pain - c/w PPI BID, sucralfate, zofran, oxycodone and tylenol for pain control - recommended avoidance of tomatoes, acidic foods and caffeine # JYOTSNA - resolved with IV fluids # Chronic pancreatitis- outpatient follow up # Constipation - senna and miralax * Progress Notes - Suzi Shields - 10/24/2020 2:55 PM EDT Case Management Adult Progress Note Lila Mcnally 34 y.o. female CSN: [id number] Anticipated Discharge Date: 10/25/20 Has Discharge Plans Changed? No Medicare Second Notice: Housing Circumstances: Not Applicable Housing Circumstances Action Taken: N/A Additional Comments Pt isn't ready to discharge at this time due to medical instability. Per the medical team dischargeis anticipated on 10/25/20. Suzi Shields * Progress Notes - Jose Deleon - 10/24/2020 11:13 AM EDT Progress Note Subjective Patient had difficult day yesterday. After eating tomato soup for lunch she had severe nausea and pain and had green/clear emesis due to pain. She threw up a salad later that day as well. She continues to have an appetite but states she can't eat solid foods due to pain. The pain is relieved by oxycodone. She is able to tolerate liquids. She has not had a bowel movement in 4 days. She has clear urine. Review of Systems Constitutional: Positive for appetite change. Negative for fever. Respiratory: Negative for shortness of breath. Cardiovascular: Negative for chest pain. Gastrointestinal: Positive for abdominal pain, constipation and nausea. Genitourinary: Negative for difficulty urinating and dysuria. Objective Last Recorded Vitals Blood pressure 117/83, pulse 73, temperature 36.6 ??C (97.8 ??F), resp. rate 20, height 1.651 m (5'5 ), weight 90.7 kg (200 lb), SpO2 94 %. Physical Exam Constitutional: General: She is in acute distress. Appearance: She is obese. Eyes: Extraocular Movements: Extraocular movements intact. Conjunctiva/sclera: Conjunctivae normal. Cardiovascular: Rate and Rhythm: Normal rate and regular rhythm. Heart sounds: Normal heart sounds. Pulmonary: Effort: Pulmonary effort is normal. Breath sounds: Normal breath sounds. Abdominal: General: Bowel sounds are normal. Palpations: Abdomen is soft. Tenderness: There is abdominal tenderness in the right upper quadrant, epigastric area and left upper quadrant. There is no guarding or rebound. Musculoskeletal: Right lower leg: No edema. Left [...] ??, Anti-Xa ?? BMP Na 142 Cl 105 BUN 11 Glu 82 K 4.0 Co2 28 Cr 1.14 (H) Ca 8.1 (L) iCa ?? Mg 2.1, Phos ?? Lactate ?? LFT AST ?? AlkPhos ?? T Prot ?? ALK ?? Bili ?? Alb ?? D.Bili ?? Assessment and Plan Lila Mcnally is a 34y F w/ PMH chronic pancreatitis, cholelithiasis s/p cholecystectomy complicated by choledocholithiasis s/p ERCP 05/13, obesity who presented to ED for 3 days of severe epigastric pain, nausea, and 1 day coffee-ground hematemesis. #Non-bleeding duodenal ulcer due to NSAID use - Presented with 3 days of epigastric pain in setting of recent NSAID use and smoking, coffee-ground hematemesis - CT 10/21 showing stranding and outpouching in first portion of the duodenum, likely representing duodenal ulcer - Not likely pancreatitis as lipase is wnl and pancreas imaging is not significant - EGD 10/22 showed 1.5cm duodenal ulcer and healing gastric ulcer - Patient continues to have pain and unable to eat solid foods without vomiting PLAN: - Continue pantoprazole PO 40mg BID, sucralfate, ODT zofran - Continue oxycodone 5mg q4hrs, continue tylenol 650mg PO q6hrs #JYOTSNA, likely secondary to hypovolemia - Cr 0.63->1.14 today, patient has been receiving 100mL/hr LR IV, yesterday she had 5+ episodes of emesis, likely volume depleted PLAN: - Increase IV LR to 125mL/hr, give 500mL bolus LR, recheck Cr in AM #Chronic pancreatitis - Restarting home Creon with meals - DAMIAN showed active cumulative morphine equivalent of 15 with recent prescriptions of [place] Trevose - 12doses 09/27, 7 doses 10/04, 10 doses 10/07, 12 doses 10/20 Chronic medial conditions #Class 1 obesity (POA) #Bipolar depression - Continue home venlafaxine and latuda #Fibromyalgia - Continue home pregabalin and methocarbamol #Tobacco use - NRT during hospitalization F: 100mL/hr LR E: Replete PRN N: Regular diet VTE: pLOV Dispo: Pending improved pain and tolerating food PO, likely 1-2 days Jose Deleon, MS4 Cosigned by Dipika Caputo MD at 10/24/2020 3:39 PM EDT Associated attestation - Dipika Caputo MD - 10/24/2020 3:39 PM EDT I saw and evaluated the patient with the medical student. I discussed the case with the medical student and agree with the findings and plan as documented. I personally performed the Exam and MedicalDecision Making. Patient reports severe pain since her pain regimen has been late. She does feel like the po oxycodone does help manage her pain well. #duodenal ulcer - c/w PPI BID, sucralfate, zofran, oxycodone and tylenol # JYOTSNA - likely prerenal - c/w ivfs - c/w nausea control - recheck creatinine in am * Progress Notes - Vineet Handy MD - 10/23/2020 12:14 PM EDT Subjective Patient seen and examined. Reports of epigastric and LUQ abdominal pain with some radiation to backearlier this morning but improved by this afternoon. Is tolerating some Jello. Has some nausea but denies any vomiting. Did not have a BM. Review of Systems All 14 point ROS are reviewed and are negative except for those mentioned above. Objective Last Recorded Vitals Blood pressure (!) 145/95, pulse 81, temperature 36.5 ??C (97.7 ??F), resp. rate 18, height 1.651 m(5' 5 ), weight 90.7 kg (200 lb), SpO2 97 %. General: Age appropriate female lying in bed not in distress HEENT: AT/NC, LUBA, EOMI. No scleral icterus present. Neck: Supple, No JVD. Oral Mucosa: Moist CVS: S1S2+ RRR No murmurs heard Lungs: CTA B/L. No Crackles appreciated Abdomen: Soft, mild TTP in epigastrium and LUQ, mild voluntary guarding but no rigidity appreciated, BS+, No palpable organomegaly appreciated Extremities: No edema. No Asterixis. Neuro: AA oriented x 3. No gross neuro deficits appreciated. Skin: No Jaundice Labs in last 18 hours CBC WBC 4.67 Hb 10.8 (L) Plt 199 Hct 32.6 (L) ANC ?? INR ??, PTT ??, Anti-Xa ?? BMP Na 140 Cl 105 BUN 7 Glu 79 K 3.7 Co2 24 Cr 0.63 Ca 8.7 (L) iCa ?? Mg 1.8 (L), Phos ?? Lactate ?? LFT AST 12 AlkPhos 67 T Prot 5.8 (L) ALK 9 Bili <0.2 (L) Alb ?? D.Bili ?? acetaminophen, 650 mg, Oral, q6h INO [Held by provider] enoxaparin, 40 mg, Subcutaneous, Daily lurasidone, 40 mg, Oral, Nightly methocarbamol, 500 mg, Oral, TID nicotine, 1 patch, Transdermal, Daily Followed by [START ON 12/02/2020] nicotine, 1 patch, Transdermal, Daily Followed by [START ON 12/16/2020] nicotine, 1 patch, Transdermal, Daily ondansetron, 8 mg, Intravenous, TID with meals [START ON 10/24/2020] pantoprazole, 40 mg, Intravenous, Daily polyethylene glycol, 17 g, Oral, Daily pregabalin, 150 mg, Oral, TID senna, 17.2 mg, Oral, BID venlafaxine XR, 150 mg, Oral, Daily with breakfast lactated Ringer's, 100 mL/hr, Last Rate: 100 mL/hr (10/22/20 1500) gi cocktail, HYDROmorphone, melatonin, oxyCODONE, promethazine, [COMPLETED] Insert peripheral IV AND [COMPLETED] Saline lock IV AND sodium chloride EGD (10/22/20): The esophagus appeared normal. ?? Healing Gastric antral ulcer seen at [facility]. Random gastric biopsies obtained. 1.5 cm crated duodenal ulcer seen at duodenal sweep. No active bleeding. Erythematous duodenal mucosa. Assessment/Plan Principal Problem: Acute on chronic pancreatitis (CMS/HCC) Active Problems: Class 1 obesity in adult Bipolar depression (CMS/HCC) Anxiety Fibromyalgia Tobacco abuse Epigastric pain Duodenal ulcer Coffee ground emesis Ms. Mcnally is a 34 y.o. year old female with PMH of chronic pancreatitis, cholelithiasis s/p CCY (2012) c/b de estella choledocholithiasis s/p ERCP in april of 2020 admitted on 10/21/2020 for chief complaint of worsening abdominal pain. # Abdominal pain # episode of coffee ground emesis # NSAID use - EGD done yesterday showed 1.5 cm crated duodenal ulcer and healing gastric ulcer. Likely NSAID related. - Random gastric biopsies obtained and pathology pending. If positive for H.Pylori, needs treatment. - Patient was instructed to avoid any NSAIDS in future - Instructed to continue PPI BID - Hgb remained stable # Chronic Pancreatitis - follow with GI as an outpatient previously scheduled. Seen and d/w attending Dr. Gómez We will sign off at this time. Please call us with any questions or concerns. Cosigned by Nandini Gómez MD at 10/23/2020 2:47 PM EDT Associated attestation - Nandini Gómez MD - 10/23/2020 2:47 PM EDT I saw and evaluated the patient with the resident/fellow. I discussed the case with the resident/fellow and agree with the findings and plan as documented. * Progress Notes - Jose Deleon - 10/23/2020 11:06 AM EDT Progress Note Subjective Patient had EGD yesterday without complication. She continues to have epigastric, LUQ, and RUQ painwhich is improved by IV dilaudid, tylenol, and oxycodone 5mg. She has nausea without vomiting and is unable to eat due to nausea. She has not had a bowel movement since 10/20 and feels bloated. She den ies dysuria and her urine is yellow-clear. Denies f/c. Review of Systems Constitutional: Positive for appetite change. Negative for fever. Respiratory: Negative for shortness of breath. Cardiovascular: Negative for chest pain. Gastrointestinal: Positive for abdominal pain, constipation and nausea. Genitourinary: Negative for difficulty urinating and dysuria. Neurological: Negative for weakness and light-headedness. Objective Last Recorded Vitals Blood pressure (!) 145/95, pulse 81, temperature 36.5 ??C (97.7 ??F), resp. rate 18, height 1.651 m(5' 5 ), weight 90.7 kg (200 lb), SpO2 97 %. Physical Exam Constitutional: General: She is in acute distress. Appearance: She is obese. Eyes: Extraocular Movements: Extraocular movements intact. Conjunctiva/sclera: Conjunctivae normal. Cardiovascular: Rate and Rhythm: Normal rate and regular rhythm. Heart sounds: Normal heart sounds. Pulmonary: Effort: Pulmonary effort is normal. Breath sounds: Normal breath sounds. Abdominal: General: Bowel sounds are normal. Palpations: Abdomen is soft. Tenderness: There is abdominal tenderness in the right upper quadrant, epigastric area and left upper quadrant. There is no guarding or rebound. Musculoskeletal: Right lower leg: No edema. Left lower leg: No edema. Skin: General: Skin is warm and dry. Neurological: Mental Status: She is alert and oriented to person, place, and time. Psychiatric: Mood and Affect: Mood normal. Behavior: Behavior normal. Relevant Results Labs in last 18 hours CBC WBC 4.67 Hb 10.8 (L) Plt 199 Hct 32.6 (L) ANC ?? INR ??, PTT ??, Anti-Xa ?? BMP Na 140 Cl 105 BUN 7 Glu 79 K 3.7 Co2 24 Cr 0.63 Ca 8.7 (L) iCa ?? Mg 1.8 (L), Phos ?? Lactate ?? LFT AST 12 AlkPhos 67 T Prot 5.8 (L) ALK 9 Bili <0.2 (L) Alb ?? D.Bili ?? Assessment and Plan Lila Mcnally is a 34y F w/ PMH chronic pancreatitis, cholelithiasis s/p cholecystectomy complicated by choledocholithiasis s/p ERCP 05/13, obesity who presented to ED for 3 days of severe epigastric pain, nausea, and 1 day coffee-ground hematemesis. #Peptic ulcer disease #Coffee ground emesis c/f hematemesis - 3 days of epigastric pain in setting of recent NSAID use and smoking, coffee- ground hematemesis - CT 10/21 showing stranding and outpouching in first portion of the duodenum, likely representing duodenal ulcer - Not likely pancreatitis as lipase is wnl and pancreas imaging is not significant - EGD 10/22 showed 1.5cm duodenal ulcer PLAN: - Deescalating pantoprazole from IV to PO 40mg BID - Switch IV zofran to ODT, add sucralfate - Discontinue IV dilaudid, increase oxycodone 5mg q6hrs to q4hrs, continue tylenol 650mg PO q6hrs Chronic medial conditions #Class 1 obesity (POA) #Bipolar depression - Continue home venlafaxine and latuda #Fibromyalgia - Continue home pregabalin and methocarbamol #Tobacco use - NRT during hospitalization F: 100mL/hr LR E: Replete PRN N: Regular diet VTE: pLOV Dispo: Pending improved pain and tolerating food PO, likely tomorrow Jose Deleon, MS4 Cosigned by Dipika Caputo MD at 10/23/2020 4:12 PM EDT Associated attestation - Dipika Caputo MD - 10/23/2020 4:12 PM EDT I saw and evaluated the patient with the medical student. I discussed the case with the medical student and agree with the findings and plan as documented. I personally performed the Exam and MedicalDecision Making. This morning she tolerated some PO. She had 1 episode of non bilious, nonbloody vomiting. She is tolerating her PO meds and pain is controlled with PO oxycodone. # Nonbleeding duodenal ulcer due to NSAID use - c/w PPI BID PO and sucralfate - c/w oxycodone for pain management - bowel regimen while on opiates Anticipate discharge in 24-48 hours if pain controlled and tolerating PO diet * Perioperative Nursing Note - Agnes Coleman, RN - 10/22/2020 5:17 PM EDT Wasted Hydromorphone 1.75mg. Witness by Benjamin Stark. * Progress Notes - Jarett Lovett - 10/22/2020 4:22 PM EDT Patient: Lila Mcnally Anesthesia Type: general Vitals Value Taken Time BP 121/78 10/22/20 1615 Temp 98.3 10/22/20 1622 Pulse 53 10/22/20 1621 Resp 16 10/22/20 1621 SpO2 100 % 10/22/20 1621 Vitals shown include unvalidated device data. Anesthesia Post Evaluation Patient location during evaluation: PACU Patient participation: complete - patient participated Level of consciousness: baseline Pain management: adequate (pain score 0-3) Airway patency: natural airway Cardiovascular status: acceptable Respiratory status: acceptable Hydration status: acceptable * Hospital Course - Sonal Blanca MD - 10/22/2020 4:18 PM EDT Lila Mcnally is a 34y F who presented to ED 10/21 for 3 days of epigastric and RUQ pain, nausea, and 1 day of hematemesis. On admission lipase was wnl, hepatitis panel was negative, and CT showed changes around the proximal duodenum suggesting duodenal ulcer. She was started on empiric PPI, zofran, pain medication, and GI was consulted. She had an EGD 10/22 which showed a 1.5cm duodenal ulcer andPPI were continued. 10/23 patient was able to tolerate liquid diet, so medications were changed to PO and diet was advanced to full. Unable to tolerate full diet and had several episodes of emesis. The following day she had JYOTSNA likely due to dehydration, so her fluid rate was increased and she was given a bolus. JYOTSNA resolved and pt continued to have normal Cr with increased fluid rate. For severaldays patient was unable to tolerate food, she had light or no vomiting. Adjustments to her pain medication regimen were made in order to get pain under control. She began increasing food intake without vomiting and by discharge was tolerating foods and liquids without vomiting on oxycodone 5mg every 6 hours. #Non-bleeding duodenal ulcer #Healing gastric ulcer INVESTIGATION: - CT abd/pelvis w IV contrast 10/21 showed minimal amount of stranding adjacent to first portion of duodenum with minimal wall thickening, tiny outpouching within the wall of the first portion of the duodenum. - EGD 10/22 showed 1.5cm duodenal ulcer and healing gastric ulcer INTERVENTION: - Pantoprazole 40mg BID started 10/21 - Sucralfate, acetaminophen, and opioids given for pain management - Zofran and phenergan given for nausea management PLAN: - Continue pantoprazole 40mg BID for 6 more weeks (end 12/16) - Follow up with [facility] #JYOTSNA INVESTIGATION: - 10/24 Cr increased from 0.63->1.14, likely due to dehydration after multiple episodes of emesis and fluids at 100mL/hr - 10/30 another episode of JYOTSNA 0.93 to 1.22, likely related to low PO fluid intake INTERVENTION: - On 10/24 increased fluid rate to 125mL/hr and gave 500mL bolus, kept fluids 100- 125mL/hr for remainder of time that patient could not take enough fluids in PO, added additional IV boluses as needed - By discharge patient was off IV fluids PLAN: - Repeat Cr at follow up with PCP #Chronic pancreatitis INVESTIGATION - Lipase and LFTs wnl on admission, CT showed pancreas enhancing homogenously - Repeat lipase and LFTs 10/26 and 10/27 were wnl INTERVENTION - Pain management as above PLAN: - MR abdomen to be scheduled outpatient - Patient will contact and establish care with pain management clinic - Discharged with 3 days of oxycodone 5mg q6h PRN #Anxiety INVESTIGATION - Patient reported anxiety related to her pain and fear of further pain INTERVENTION - 5mg amitriptyline nightly was started 10/27 - After mild improvement switched to 10mg nortriptyline nightly on 11/01, however patient developed urinary hesitancy which persisted even with decrease back to amitriptyline - Stopped amitriptyline & nortriptyline PLAN - Follow up with PCP #Tinea corporis INVESTIGATION - Patient reported lesion started 2 years ago after hitting her rodríguez and slowly growing since then,she reports biopsy that showed fungal infection, using clotrimazole intermittently since then, lesion is roughly 4cm large, erythematous with central clearing and biopsy scar, likely tinea corporis INTERVENTION - Gave clotrimazole topical BID PLAN - Follow up with PCP - Rx for clotrimazole topically given on discharge #Right breast mass INVESTIGATION - CT abd/pelvis had incidental finding of solid 24mm mass in right breast, present since 2016, suggesting benignity, no acute intervention necessary PLAN - Follow up with PCP #Irregular vaginal bleeding INVESTIGATION - Patient reported starting menses the day before admission, however her light menses continued throughout, normally 3 days of menses - U/A dip showed large amount of blood and microscopic showed 11-15 RBC, 0-5 WBC - CT abd/pelvis 10/28 showed an enhancing nodule in the uterus, likely corresponding to leiomyoma - Patient not anemic, no acute intervention necessary PLAN - Follow up with PCP or food service aide Medication changes: Giving 3 days of oxycodone 5mg q6hrs Added pantoprazole 40mg BID until 12/16 Added carafate suspension for symptoms until ulcer healed Follow-up: PCP within 1-2 weeks [facility] within 1-2 months Patient will establish care with pain management clinic * Consults - Jadon Brown - 10/22/2020 2:50 PM EDT Pastoral Care Note I visited with the patient and offered support and encouragement. Pastoral Care is happy to follow up PRN. 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 Pastoral Care Provided For: Patient Patient Profile: Consult Reasons: Initial visit Spiritual Assessment: Support Systems/ Spiritual Resources: Family, Lara Spiritual Needs: Prayer, Emotional support Spiritual Issues: Chronic pain/ illness Interventions: Interventions Provided: Emotional support, Prayer Pastoral Care Outcomes: Patient Outcomes: Expresses acceptance, Gratitude, Is knowledgeable about [employer] * Progress Notes - Walt Levy MD - 10/22/2020 11:29 AM EDT Progress Note Subjective Patient continues to have epigastric, RUQ, and LUQ pain, however it has decreased significantly with IV Dilaudid. She has nausea and has not vomited since being in the hospital. She reports vomiting brown, coffee ground appearing, acidic tasting vomit last night before going to the ED. She has not h ad a bowel movement in the past 3 days and is unable to eat due to nausea. She denies dysuria but states her urine is very dark. She states that she occasionally drinks alcohol but not much recently.She smokes 1/2-1ppd cigarettes. Denies f/c, chest pain. Review of Systems Constitutional: Positive for appetite change. Negative for fever. Respiratory: Negative for shortness of breath. Cardiovascular: Negative for chest pain. Gastrointestinal: Positive for abdominal pain, constipation, nausea and vomiting. Genitourinary: Negative for difficulty urinating and dysuria. Neurological: Negative for weakness and light-headedness. Objective Last Recorded Vitals Blood pressure 120/81, pulse 61, temperature 36.4 ??C (97.5 ??F), resp. rate 18, height 1.651 m (5'5 ), weight 90.7 kg (200 lb), SpO2 98 %. Physical Exam Constitutional: General: She is in acute distress. Appearance: She is obese. Eyes: Extraocular Movements: Extraocular movements intact. Conjunctiva/sclera: Conjunctivae normal. Cardiovascular: Rate and Rhythm: Normal rate and regular rhythm. Heart sounds: Normal heart sounds. Pulmonary: Effort: Pulmonary effort is normal. Breath sounds: Normal breath sounds. Abdominal: General: Bowel sounds are normal. Palpations: Abdomen is soft. Tenderness: There is abdominal tenderness in the right upper quadrant, epigastric area and left upper quadrant. There is no guarding or rebound. Musculoskeletal: Right lower leg: No edema. Left lower leg: No edema. Skin: General: Skin is warm and dry. Neurological: Mental Status: She is alert and oriented to person, place, and time. Psychiatric: Mood and Affect: Mood normal. Behavior: Behavior normal. Relevant Results Labs in last 18 hours CBC WBC 5.44 Hb 11.0 (L) Plt 175 Hct 33.7 (L) ANC ?? INR ??, PTT ??, Anti-Xa ?? BMP Na 139 Cl 108 (H) BUN 11 Glu 79 K 3.9 Co2 21 (L) Cr 0.64 Ca 8.3 (L) iCa ?? Mg 2.3, Phos 3.7 Lactate ?? LFT AST 10 (L) AlkPhos 66 T Prot 5.4 (L) ALK 9 Bili <0.2 (L) Alb ?? D.Bili ?? Results Procedure Component Value Units Date/Time SARS CoV-2/COVID-19 by PCR [[id number]] (Normal) Collected: 10/21/202102 Order Status: Completed Specimen: Swab from Nasopharynx Updated: 10/22/20658 SARS CoV-2/COVID-19 RNA PCR Result Not Detected Narrative: This assay is for in vitro diagnostic use under FDA emergency use authorization only. Negative results do not preclude infection with the SARS CoV-2 virus and should not be the sole basis of a patient treatment/management or public health decision. Follow up testing should be performed according tothe current CDC recommendations. This test was performed using the TaqPath COVID-19 assay, an CS-GNP-wotat method. The limit of detection (LoD) for this assay is 250 copies/mL. Use of the TaqPath COVID-19 assay in an asymptomatic screening population is intended to be used aspart of an infection control plan that may [...] clinical signs and symptoms consistent with COVID-19. Helicobacter pylori Antigen [[id number]] Order Status: Sent Specimen: Stool from Rectum Urine Culture - clean catch [[id number]] Order Status: Sent Specimen: Urine, Clean Catch Exam/Procedure: CT ABDOMEN PELVIS W IV CONTRAST ordered by BENJAMIN BRITT, [id number] CLINICAL INDICATION: Nausea/vomiting TECHNIQUE: Imaging of the abdomen and pelvis was performed, from lung bases through pubic symphysis, using spiral technique, following administration of IV contrast, Omnipaque 300, 100 mL. Delayed (excretory phase) images were performed through the kidneys. Reformatted images in the coronal and sagittal planes were generated from the axial data set to facilitate diagnostic accuracy. Total DLP (Dose-Length Product): 978.36 mGy.cm. Please note: The reported value represents the total of one or more individual components during the CT acquisition on this date and at this time, and as such, the same value may appear in more than one CT report depending on the interpreting/reporting physicians. COMPARISON: CT abdomen and pelvis April 16, 2016 FINDINGS: Lung Bases: Bibasilar atelectasis. Liver/Gallbladder/Biliary system: The liver demonstrates homogeneous [...] pelvis. Pelvis: The pelvic viscera are unremarkable. Retroverted uterus. Body Wall: Normal. Stable 2 cm nodule in the right breast. Bones: No acute fracture. Impression: ?? Unremarkable examination of the abdomen and pelvis. ATTENDING COMMENT: There appears to be minimal amount of stranding adjacent to the first portion of the duodenum with minimal wall thickening of the duodenum. There appears to be a tiny outpouching within the wall of the first portion of the duodenum which in the correct clinical setting could represent a small duodenal ulcer. Correlation with patient's clinical history is recommended. Findings could be further evaluated with endoscopy if clinically indicated. CRITICAL RESULT: ?? No. COMMUNICATION: Changes this report were discussed with Veda Langley of the emergency room service via telephone at 2100 on 10/21/2020. Dictated by James Cheung on 10/21/2020 7:08 PM By electronically signing this report, I, the attending physician, attest that I have personally reviewed the images/data for the above examination(s) and agree with the final edited report. Signed by Abigail Abbott on ??10/21/2020 9:07 PM Assessment and Plan Lila Mcnally is a 34y F w/ PMH chronic pancreatitis, cholelithiasis s/p cholecystectomy complicated by choledocholithiasis s/p ERCP 05/13, obesity who presented to ED for 3 days of severe epigastric pain, nausea, and 1 day coffee-ground hematemesis. #Peptic ulcer disease # Coffee ground emesis c/f hematemesis - 3 days of epigastric pain in setting of recent NSAID use and smoking, coffee- ground hematemesis - CT showing stranding and outpouching in first portion of the duodenum, likely representing duodenal ulcer - Not likely pancreatitis as lipase is wnl and pancreas imaging is not significant PLAN: - Consulted GI, they are planning on EGD today, patient currently NPO - Continue IV pantoprazole 40mg BID - Continue IV zofran TID for nausea - IV dilaudid 0.25mg q2hrs PRN, tylenol 650mg PO q6hrs Chronic medial conditions #Class 1 obesity (POA) #Bipolar depression - Continue home venlafaxine and latuda #Fibromyalgia - Continue home pregabalin and methocarbamol #Tobacco use - NRT during hospitalization F: 100mL/hr LR E: Replete PRN N: NPO VTE: Hold until bleeding ruled out Dispo: Pending EGD and medical stabilization Jose Deleon, MS4 * Consults - Vineet Handy MD - 10/22/2020 11:24 AM EDTAssociated Order(s): IP CONSULT TO GASTROENTEROLOGY Inpatient Gastroenterology, Hepatology and Nutrition Initial Consultation Note: Patient: Lila Mcnally Date of : 1985 Room: [address] [place] [address] Referring provider: Dr. Sierra Reason for consultation: Epigastric Pain Subjective: History of present illness: Ms. Mcnally is a 34 y.o. year old female with PMH of chronic pancreatitis, cholelithiasis s/p CCY (2012) c/b de estella choledocholithiasis s/p ERCP in april of 2020 admitted on 10/21/2020 for chief complaint of worsening abdominal pain. The inpatient gastroenterology, hepatology and nutrition team was asked to see her in consultation for evaluation of abdominal pain. Pt was recently seen on 10/18/20 in GI clinic for workup of recurrent pancreatitis. Per chart review, she did quite well after CCY in 2012 until around 3 years ago. Atthat point she experienced sudden onset epigastric/LUQ abdominal pain and was reportedly diagnosed with acute pancreatitis at [facility]. She was treated conservatively and discharged. From that point on she reports intermittent flares of upper abdominal pain consistent with pancreatitis but less severe. In April she had had another admission at [facility] for recurrent abdominal pain and underwent ERCP and removal of de estella choledocholithiasis by Dr. Heller. In ED this presentation, CT abd/pelvis on 10/21/20 showed stranding surrounding duodenum and possible small duodenal ulcer. She reports daily NSAID use (800 mg BID) for past couple of months for her abdominal pain with minimal relief. She says this episode of abdominal pain is worse and feels her epigastric pain radiating to LLQ. She reports poor PO intake for past 3 days. She has been intermittently nauseous and reports 1x episode of coffee ground emesis prior to arrival but denies seeing any bright red blood. She denies melena or seeing gross blood in stool. -ALP, AST/ALT, Lipase T. Bili WNL Review of Systems: General: No fever. No chills Ears: No hearing loss, tinnitus Eyes: No blurred vision, double vision, or scleral icterus Nose: No epistaxis, nasal congestion Throat: No sore throat CV: No chest pain, shortness of breath. Resp: No shortness of breath. No cough. GI: +abdominal pain (epigastric), +nausea, No vomiting, constipation, diarrhea, or GI bleeding. : No change in urine frequency and no dysuria. Skin: No rashes, bruising or jaundice Msk/Ext: No arthralgias. Neuro: No headaches, dizziness. Past Medical History: Diagnosis Date ??? Anxiety ??? Depression ??? Fibromyalgia ??? GERD (gastroesophageal reflux disease) ??? Hypertension ??? Nicotine dependence ??? Obesity ??? Pancreatitis Past Surgical History: Procedure Laterality Date ??? CHOLECYSTECTOMY Family History Problem Relation Name Age of [...] Frequency: 4.0 times per week Types: Marijuana Allergies Allergen Reactions ??? Morphine And Related Other Burning ??? Tramadol Dizziness and Rash Current Facility-Administered Medications: ??? [Held by provider] enoxaparin (Lovenox) syringe 40 mg, 40 mg, Subcutaneous, Daily, DANIA Bowens ??? gi cocktail oral solution 30 mL, 30 mL, Oral, 4x daily PRN, DANIA Bowens ??? HYDROmorphone (Dilaudid) injection 0.25 mg, 0.25 mg, Intravenous, q2h PRN, Tristin Llamas MD, 0.25 mg at 10/22/20 0923 ??? ketorolac (Toradol) injection 15 mg, 15 mg, Intravenous, q6h PRN, DANIA Bowens, 15 mg at 10/22/20 0820 ??? lactated Ringer's infusion, 100 mL/hr, Intravenous, Continuous, DANIA Bowens, Last Rate: 100 mL/hr at 10/21/202320, 100 mL/hr at 10/21/202320 ??? melatonin tablet 6 mg, 6 mg, Oral, Nightly PRN, Sarahy Martinez PA ??? nicotine (Nicoderm CQ) 21 MG/24HR patch 1 patch, 1 patch, Transdermal, Daily, 1 patch at 10/21/202320 FOLLOWED BY [START ON 12/02/2020] nicotine (Nicoderm CQ) 14 MG/24HR patch 1 patch, 1 patch, Transdermal, Daily FOLLOWED BY [START ON 12/16/2020] nicotine (Nicoderm CQ) 7 MG/24HR patch 1 patch, 1 patch, Transdermal, Daily, Sarahy Martinez PA ??? ondansetron (Zofran) injection 4 mg, 4 mg, Intravenous, q6h PRN, Sarahy Martinez PA, 4 mg at 10/22/20 0820 ??? oxyCODONE (Roxicodone) immediate release tablet 5 mg, 5 mg, Oral, q6h PRN, Sarahy Martinez, PA, 5 mg at 10/22/20 1115 ??? pantoprazole (ProtoNix) injection 40 mg, 40 mg, Intravenous, BID, Walt Levy MD ??? promethazine (Phenergan) injection 12.5 mg, 12.5 mg, Intravenous, q4h PRN, DANIA Bowens ??? [COMPLETED] Insert peripheral IV, , , Once AND [COMPLETED] Saline lock IV, , , Once ANDsodium chloride 0.9 % flush 10 mL, 10 mL, Intravenous, q8h PRN, DANIA Bowens Objective: Temp: [36.3 ??C (97.3 ??F)-36.7 ??C (98.1 ??F)] 36.4 ??C (97.5 ??F) Heart Rate: [57-84] 61 Resp: [18-20] 18 BP: (106-145)/(70-91) 120/81 Weight: 90.7 kg (200 lb) Body mass index is 33.28 kg/m??. Physical Examination: General Appearance: Awake, obese, alert, oriented x 3, in minimal distress Head: Normocephalic, atraumatic Eyes: no scleral icterus, EOMI. Neck: Neck supple Lungs: Lungs clear to auscultation with no wheezing, rales, or rhonchi Heart: Regular rate and rhythm Abdomen: Abdomen soft, TTP in epigastric region. Bowel sounds normal. No rebound or guarding. No ascites, no organomegaly. Extremities: No lower extremity edema. Neurologic: Mental status intact. No gross neurologic deficits. Laboratory: CBC WBC 5.44 Hb 11.0 (L) Plt 175 Hct 33.7 (L) INR ?? PTT ?? BMP Na 139 Cl 108 (H) BUN 11 Glu 79 K 3.9 Co2 21 (L) Cr 0.64 Mg 2.3 Phos 3.7 LFT AST 10 (L) AlkPhos 66 T Prot 5.4 (L) ALK 9 T Bili <0.2 (L) Alb ?? Imaging: @IMAGES@ === 10/21/20 === CT ABDOMEN PELVIS W IV CONTRAST - Narrative - Exam/Procedure: CT ABDOMEN PELVIS W IV CONTRAST ordered by BENJAMIN BRITT, [id number] CLINICAL INDICATION: Nausea/vomiting TECHNIQUE: Imaging of the abdomen and pelvis was performed, from lung bases through pubic symphysis, using spiral technique, following administration of IV contrast, Omnipaque 300, 100 mL. Delayed (excretory phase) images were performed through the kidneys. Reformatted images in the coronal and sagittal planes were generated from the axial data set to facilitate diagnostic accuracy. Total DLP (Dose-Length Product): 978.36 mGy.cm. Please note: The reported value represents the total of one or more individual components during the CT acquisition on this date and at this time, and as such, the same value may appear in more than one CT report depending on the interpreting/reporting physicians. COMPARISON: CT abdomen and pelvis April 16, 2016 FINDINGS: Lung Bases: Bibasilar atelectasis. Liver/Gallbladder/Biliary system: The liver demonstrates homogeneous [...] pelvis. Pelvis: The pelvic viscera are unremarkable. Retroverted uterus. Body Wall: Normal. Stable 2 cm nodule in the right breast. Bones: No acute fracture. - Impression - Unremarkable examination of the abdomen and pelvis. ATTENDING COMMENT: There appears to be minimal amount of stranding adjacent to the first portion of the duodenum with minimal wall thickening of the duodenum. There appears to be a tiny outpouching within the wall of the first portion of the duodenum which in the correct clinical setting could represent a small duodenal ulcer. Correlation with patient's clinical history is recommended. Findings could be further eval uated with endoscopy if clinically indicated. CRITICAL RESULT: No. COMMUNICATION: Changes this report were discussed with Veda Langley of the emergency room service via telephone at 2100 on 10/21/2020. Dictated by James Cheung on 10/21/2020 7:08 PM By electronically signing this report, I, the attending physician, attest that I have personally reviewed the images/data for the above examination(s) and agree with the final edited report. Signed by Abigail Abbott on 10/21/2020 9:07 PM Assessment and Plan: Ms. Mcnally is a 34 y.o. year old female with PMH of chronic pancreatitis, cholelithiasis s/p CCY (2012) c/b de estella choledocholithiasis s/p ERCP in april of 2020 admitted on 10/21/2020 for chief complaint of worsening abdominal pain for which GI was consulted. #Recurrent Abdominal pain with suspected duodenal ulcer -ddx: likely PUD in setting of chronic NSAID use but not limited to infectious etiology (H. Pylori). Low suspicion for cholangitis or choledocholithiasis given normal LFT's, T bili, and lack of fever. Pt HD stable throughout inpatient stay. -see CT abd/pelvis read above (10/21/20) -recommended tobacco and marijuana cessation PLAN -Plan for EGD later today -Resume Zofran 8 mg q8 PRN and Omeprazole 40 mg daily after procedure -Recommend H. Pylori stool antigen #Recurrent Pancreatitis, stable -Lipase WNL on presentation, pt reports -currently being worked up for unusual causes -tentatively planned for repeat ERCP with Dr. Heller in near future Plan -continue workup in outpatient GI clinic - CBC; Future - Lipase; Future - Ionized calcium, serum; Future - IMMUNOGLOBULIN G SUBCLASS 4; Future - IgG; Future - Lipid panel; Future - Vitamin D 25 hydroxy; Future - Vitamin A; Future - Vitamin E; Future - Hemoglobin A1c; Future - MR Abdomen w and wo IV Contrast; Future Discussed with Dr. Gómez Thank you for allowing us to participate in this patient's care. Please do not hesitate to call or page with questions or concerns. Jay Patel Department of Gastroenterology and Nutrition Addendum: I have seen and examined the patient with medical student and participated in all neville portions of history and physical exam. I have independently reviewed her labs, imaging. I agree with his assessment and plan. D/w attending Dr. Gómez Cosigned by Nandini Gómez MD at 10/22/2020 3:36 PM EDT Associated attestation - Nandini Gómez MD - 10/22/2020 3:36 PM EDT I saw and evaluated the patient with the resident/fellow. I discussed the case with the resident/fellow and agree with the findings and plan as documented. * Progress Notes - Suzi Shields - 10/22/2020 9:25 AM EDT Activities of Daily Living Functional Status Independent Independent Living Arrangements Family Family Type of Residence Private residence Private residence Smoker in the Home? -- -- Assistive Device None None Income Information Income Source Unknown Unknown Income/Expense Information -- -- Current Resources Utilized None None Housing Circumstances-Z Codes Housing Circumstances (select all that apply) None Applicable None Applicable PCP [facility] HAS had COVID vaccine NO DME/HH or LW Pt family takes her to/from MD appts. And will pick her up at time of discharge. * H&P - Sarahy Martinez PA - 10/21/2020 7:48 PM EDTAssociated Order(s): Consult to [facility] Medicine [facility] Consult to [facility] Medicine [facility] Consult performed by: DANIA Bowens Consult ordered by: Napoleon Squires MD Chief complaint: Epigastric pain History of Present Illness: Lila Mcnally is a 34 y.o. female with past medical history significant for chronic pancreatitis, cholelithiasis s/p cholecystectomy complicated by de estella choledocholithiasis s/p ERCP in April of thisyear, obesity, bipolar depression, anxiety, and fibromyalgia who presents to ED with chief complaint of severe epigastric pain. Per chart review, the patient underwent emergent cholecystectomy in 2012 due to infectious cholecystitis with resultant pathology significant for cholelithiasis. She experienced no complications from this, however began to have severe epigastric pain 3 years ago and was diagnosed with acute pancreatitis. Since then, the patient has been experiencing recurrent episodes of pancreatitis with reported frequency of approximately 1 flare up per week. Upon further questioning, the patient does endorse that around the same time she developed her first episode of pancreatitis, she was taking orlistat for weight loss and denies further preceding events. The patient states today that has been experiencing worsening epigastric pain and right mid-abdominal pain for approximately 3 days, which has been associated with poor PO intake, nausea, vomiting, and diarrhea. She states that her pain radiates to her right flank and is rated at an 8/10 without improvement from oral opioids or NSAIDs. She was recently seen outpatient on 10/18 by [facility], with recommendations including decrease in NSAID use (as patient uses at least 800mg per day,) cessation of smoking, cessation of marijuana use (current use 3-4 times per week), 3 month course of omeprazole, and low fat diet. She has continued to smoke both cigarettes and marijuana, and has not noticed any im provement in her symptoms. She denies recent fever, chills, hematochezia, hematemesis, cough, chestpain, or any other complaint at this time. Workup in the ED thus far today has been significant for CT abdomen and pelvis showing minimal stranding surrounding duodenum with small outpouching suggesting small duodenal ulcer , lipase of 36, WBC count of 8.15, no electrolyte abnormalities, and vital signs significant only for hypertension. Given this patient's uncontrolled severe pain, hospital medicine has been consulted for further evaluation and management of her symptoms. Past Medical History: Past Medical History: Diagnosis Date ??? Anxiety ??? Depression ??? Fibromyalgia ??? GERD (gastroesophageal reflux disease) ??? Hypertension ??? Nicotine dependence ??? Obesity ??? Pancreatitis Past Surgical History: Past Surgical History: Procedure Laterality Date ??? CHOLECYSTECTOMY Family History: Family History Problem Relation Name Age of Onset ??? Hypertension Mother ??? No Known Problems Father Social History: She reports that she has been smoking cigarettes. She has been smoking about 0.50 packs per day. She has never used smokeless tobacco. She reports current alcohol use. She reports current drug use. Frequency: 4.00 times per week. Drug: Marijuana. Allergies: Morphine and related and Tramadol Current Hospital Medications: enoxaparin, 40 mg, Subcutaneous, Daily nicotine, 1 patch, Transdermal, Daily Followed by [START ON 12/02/2020] nicotine, 1 patch, Transdermal, Daily Followed by [START ON 12/16/2020] nicotine, 1 patch, Transdermal, Daily pantoprazole, 40 mg, Intravenous, Daily lactated Ringer's, 100 mL/hr gi cocktail, melatonin, ondansetron, oxyCODONE, promethazine, [COMPLETED] Insert peripheral IV AND [COMPLETED] Saline lock IV AND sodium chloride Medications reviewed and are appropriate Current Home medications: Prior to Admission medications Medication Sig Start Date End Date Taking? Authorizing Provider Latuda 40 MG tablet TAKE 1 TABLET BY MOUTH IN THE EVENING WITH FOOD 10/14/20 Historical Provider, methocarbamol (Robaxin) 500 MG tablet Take 500 mg by mouth 3 (three) times a day. 09/10/20 Historical Provider, omeprazole (PriLOSEC) [address] capsule Take 1 capsule (40 mg total) by mouth 1 (one) time each day before breakfast. Do not crush or chew. 10/18/20 02/15/21 DANIA Gunn ondansetron (Zofran) 8 MG tablet Take 1 tablet (8 mg total) by mouth every 8 (eight) hours if needed for nausea or vomiting. 10/18/20 11/17/20 DANIA Gunn pregabalin (Lyrica) 150 MG capsule Take 150 mg by mouth 3 (three) times a day. 04/07/20 Historical Provider, promethazine (Phenergan) 25 MG tablet Take 1 tablet (25 mg total) by mouth every 6 (six) hours if needed for nausea or vomiting for up to 7 days. 10/18/20 10/25/20 George Tang MD venlafaxine XR (Effoxor-XR) 150 MG 24 hr capsule TAKE 1 CAPSULE BY MOUTH ONCE DAILY IN THE MORNING 07/07/20 Historical Provider, ondansetron (Zofran) 4 MG tablet Take 4 mg by mouth every 6 (six) hours if needed. 09/22/20 10/18/20 Historical Provider, Labs (in last 24 hours): CBC: Lab Results Component Value Date WBC 8.15 10/21/2020 RBC 4.02 10/21/2020 HGB 11.7 10/21/2020 HCT 35.4 10/21/2020 PLT 200 10/21/2020 MCV 88 10/21/2020 MCH 29.1 10/21/2020 MCHC 33.1 10/21/2020 RDW 13.2 10/21/2020 NRBC 0.0 10/21/2020 Differential: Lab Results Component Value Date WBC 8.15 10/21/2020 NEUTOPHILPCT 58.0 10/21/2020 LYMPHOPCT 36.0 10/21/2020 MONOPCT 5.0 10/21/2020 EOSPCT 0.0 10/21/2020 Coagulation: Lab Results Component Value Date INR 0.9 10/21/2020 Renal: Lab Results Component Value Date NA 137 10/21/2020 K 3.9 10/21/2020 CL 104 10/21/2020 CO2 20 (L) 10/21/2020 BUN 16 10/21/2020 CREATININE 0.62 10/21/2020 GLUCOSE 87 10/21/2020 CALCIUM 9.1 10/21/2020 MG 1.8 (L) 10/21/2020 Liver: Lab Results Component Value Date AST 10 (L) 10/21/2020 ALT 15 10/21/2020 BILITOT <0.2 (L) 10/21/2020 Glucose: No results found for: PGLU Lab Results Component Value Date HGBA1C 5.3 10/18/2020 Labs reviewed and are appropriate Microbiology: Results No results found for the last 48 hours. Imaging (in last 24 hours): CT Abdomen Pelvis w IV Contrast Result Date: 10/21/2020 Narrative: Exam/Procedure: CT ABDOMEN PELVIS W IV CONTRAST ordered by BENJAMIN BRITT, [id number] CLINICAL INDICATION: Nausea/vomiting TECHNIQUE: Imaging of the abdomen and pelvis was performed, from lung bases through pubic symphysis, using spiral technique, following administration of IV contrast, Omnipaque 300, 100 mL. Delayed (excretory phase) images were performed through the kidneys. Reformatted images in the coronal and sagittal planes were generated from the axial data set to facilitate diagnostic accuracy. Total DLP (Dose-Length Product): 978.36 mGy.cm. Please note: The reported value represents the total of one or more individual components during the CT acquisition on this date and at this time, and as such, the same value may appear in more than one CT report depending on the interpreting/reporting physicians. COMPARISON: CT abdomen and pelvis April 16, 2016 FINDINGS: Lung Bases: The lung bases are clear. Liver/Gallbladder/Biliary system: The liver demonstrates homogeneous enh ancement. Cholecystectomy. No intra- or extra-hepatic biliary ductal dilatation. Spleen: The spleenenhances homogeneously. Pancreas: The pancreas enhances homogeneously. Adrenals: [...] the pelvis. Pelvis: The pelvic viscera are unremarka ble. Retroverted uterus. Body Wall: Normal. Stable 2 cm nodule in the right breast. Bones: No acutefracture. Vital Signs: Vitals: 10/21/20 1537 BP: (!) 145/91 Pulse: 75 Resp: 20 Temp: 36.7 ??C (98.1 ??F) TempSrc: Oral SpO2: 99% Weight: 90.7 kg (200 lb) Height: 1.651 m (5' 5 ) No intake or output data in the 24 hours ending 10/21/20 2124 Vital signs reviewed and are appropriate Review of Systems: Review of Systems Constitutional: Positive for appetite change. Negative for activity change, chills, fatigue, fever and unexpected weight change. HENT: Negative for ear pain, hearing loss, sinus pressure, sore throat and trouble swallowing. Eyes: Negative for visual disturbance. Respiratory: Negative for cough and shortness of breath. Cardiovascular: Negative for chest pain and palpitations. Gastrointestinal: Positive for abdominal pain, diarrhea, nausea and vomiting. Negative for blood instool and constipation. Genitourinary: Positive for flank pain. Negative for decreased urine volume, dysuria, frequency, hematuria and urgency. Musculoskeletal: Positive for back pain and myalgias. Negative for arthralgias, gait problem and joint swelling. Skin: Negative for rash and wound. Neurological: Positive for weakness. Negative for dizziness, syncope, light- headedness and numbness. Psychiatric/Behavioral: Positive for sleep disturbance. Negative for hallucinations and suicidal ideas. The patient is not nervous/anxious. All other systems reviewed and are negative. Physical Exam: Physical Exam Vitals reviewed. Constitutional: General: She is not in acute distress. Appearance: Normal appearance. She is well-developed. She is obese. HENT: [...] effort is normal. Breath sounds: Normal breath sounds and air entry. Abdominal: General: Bowel sounds are normal. There is no distension. Palpations: Abdomen is soft. There is no mass. Tenderness: There is abdominal tenderness in the right lower quadrant, epigastric area and left upper quadrant. There is no guarding or rebound. Negative signs include Carlson's sign, Rovsing's sign and McBurney's sign. Hernia: No hernia is present. Musculoskeletal: [...] to person, place, and time. Cranial Nerves: Cranial nerves are intact. Sensory: Sensation is intact. Motor: Motor function is intact. Gait: Gait normal. Psychiatric: Mood and Affect: Mood normal. Speech: Speech is slurred. Behavior: Behavior normal. Thought Content: Thought content normal. Judgment: Judgment normal. Assessment and plan: Lila Mcnally is a 34 y.o. female with past medical history significant for chronic pancreatitis, cholelithiasis s/p cholecystectomy complicated by de estella choledocholithiasis s/p ERCP in April of thisyear, obesity, bipolar depression, anxiety, and fibromyalgia who presents to ED with chief complaint of severe epigastric pain. Principal problem: Acute on chronic pancreatitis (CMS/HCC) Principal Problem: Acute on chronic pancreatitis (CMS/HCC) Active Problems: Class 1 obesity in adult Bipolar depression (CMS/HCC) Anxiety Fibromyalgia Tobacco abuse Epigastric pain 1. Acute on chronic pancreatitis vs. Gastric ulcer with severe epigastric pain, nausea, and vomiting - Some suspicion for gastritis per GI outpatient note given frequent NSAID use (patient uses 800 mgibuprofen daily) - Patient has been experiencing worsening pain for approximately 3 days associated with nausea and vomiting, poor PO intake - CT abdomen and pelvis with minimal amount of stranding adjacent to the first portion of the duodenum with minimal wall thickening of the duodenum. There appears to be a tiny outpouching within the wall of the first portion of the duodenum which could represent a small duodenal ulcer - Lipase 36, LFT's WNL, WBC count: 8.15, electrolytes WNL, lactate 0.8, CRP pending, CBC WNL - Patient denies any signs of overt bleeding including melena, hematochezia, or hematemesis PLAN - H. Pylori antigen ordered and pending - Will initiate PPI treatment with pantoprazole - Patient slurring words on examination, thus avoidance of opioids for now preferable however sparing use of NSAID's given possible PUD - PRN Zofran and compazine for refractory nausea and vomiting - Will resume low fat diet as tolerated for now with IVF replacement - Continue outpatient creon - Please consult GI in AM for recommendations 2. Bipolar depression and generalized anxiety disorder - Patient denies SI/HI/AVH at this time PLAN - Continue outpatient venlafaxine, latuda 3. Fibromyalgia PLAN - Continue outpatient pregabalin and methocarbamol 4. Marijuana use - Patient reports that she smokes marijuana 4-5 times per week PLAN - Education for cessation provided 5. Tobacco use disorder with nicotine dependency - Patient reports smoking 1/2-1 pack of cigarettes per day PLAN - NRT available at patient???s request - Smoking cessation education and counseling to be provided before discharge 6. Obesity (POA) - BMI on admission is: 33.28 - complicates multiple aspects of the patient's care PLAN - Diet and exercise counseling to be provided before discharge Fluids: PO intake as tolerated, IVF Electrolytes: Monitor and replace as indicated Nutrition Adult diet Diet texture: Regular; Fat restriction: Low Fat DVT prophylaxis Lovenox prophylaxis held until duodenal ulcer bleeding ruled out Code status Full Code CHELSEY Mcqueen PA-C Division of Hospital Medicine Pager: [phone] Cosigned by Javier Jimenez MD at 10/22/2020 2:18 PM EDT Associated attestation - Javier Jimenez MD - 10/22/2020 2:18 PM EDT I saw and evaluated the patient . I discussed the case with the PAJuan and agree with the findings and plan as documented in the final note. History:34 year old Female with h/o chronic pancreatitis presenting with epigastric pain. Exam:Abdominal tenderness in RLQ,epigastric area and LUQ. Assessment and Plan:Abdominal pain.Chronic Pancreatitis. * ED Provider Notes - Brian Langley MD - 10/21/2020 3:33 PM EDT Images from the original note were not included. HPI Chief Complaint Patient presents with ??? Pancreatitis PIT Note Lila Mcnally is a 34 y.o. female who presents to ED with abdominal pain. Pt reports the pain is chronic, worse for several days, is located along the top of her abdomen, and is similar to pancreatitisin the past. Pt documents her pain is usually treated with Dilaudid. She also c/o nausea and vomiting. Patient denies fever, chills, and chest pain. Brian Langley: This patient has a history of chronic pancreatitis, fibromyalgia his presents to the emergency department for evaluation of acute on chronic epigastric abdominal pain with associated nonbloody nonbilious vomiting and inability to tolerate by mouth. Patient states that for last 3 days she has not been able to tolerate any food or liquids by mouth due to severe pain and has spent most of our time ???crawled up in a ball and ??? 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 by: Patient product evangelist used: No No data recorded Patient History Past Medical History: Diagnosis Date ??? Anxiety ??? Depression ??? Fibromyalgia ??? GERD (gastroesophageal reflux disease) ??? Hypertension ??? Nicotine dependence ??? Obesity ??? Pancreatitis Past Surgical History: Procedure Laterality Date ??? CHOLECYSTECTOMY Family History Problem Relation Name Age of [...] last month? No Travel History Travel since 09/20/20 No documented travel since 09/20/20 Relevant Domestic Travel History: no Immunization History not reviewed VACCINE/DOSE DATE Flu 11/21/2019 Tetanus Pneumovax Shingles Allergies Allergen Reactions ??? Morphine And Related Other ??? Tramadol Dizziness and Rash Review of Systems Review of Systems Constitutional: Negative for chills and fever. HENT: Negative for congestion. Respiratory: Negative for cough and shortness of breath. Cardiovascular: Negative for chest pain. Gastrointestinal: Positive for abdominal pain, nausea and vomiting. Negative for diarrhea. All other systems reviewed and are negative. Physical Exam ED Triage Vitals [10/21/20 1537] Temp Heart Rate Resp BP 36.7 ??C (98.1 ??F) 75 20 (!) 145/91 SpO2 Temp Source Heart Rate Source Patient Position 99 % Oral Monitor -- BP Location FiO2 (%) -- -- [...] respiratory distress. Breath sounds: No stridor. Abdominal: Palpations: Abdomen is soft. Tenderness: There is abdominal tenderness (Mild epigastric and right lower quadrant tenderness). Musculoskeletal: General: Normal range of motion. Cervical back: No rigidity. Skin: General: Skin is warm and dry. Neurological: Mental Status: She is alert and oriented to person, place, and time. Psychiatric: Mood and Affect: Mood normal. Behavior: Behavior normal. ED Course & MDM Clinical Impressions as of Oct 22 2235 Epigastric pain MDM Number of Diagnoses or Management Options Epigastric pain Diagnosis management comments: Date/Time: 10/21/2020/3:44 PM Entered by Garrison Moura, acting as scribe for Dr. Britt Attending Attestation: The documentation was recorded by Garrison Moura, acting as scribe in my presence at the time of the encounter and accurately reflects the service I personally performed. Lila Mcnally is a 34 y.o. female with past medical history of chronic pancreatitis, fibromyalgia whopresents to the emergency department for evaluation of acute onset inability to tolerate by mouth, associated vomiting, epigastric pain duration 3 days. Patient hemodynamically stable and nontoxic tom earing upon arrival, afebrile. Differential diagnosis includes acute on chronic pancreatitis, gastritis, appendicitis, peptic ulcer, among others. Initial workup will be conducted with broad hematologic labs and a CT scan of the abdomen and pelvis with IV contrast. Patient will be given Zofran, Dilaudid, and a crystalloid bolus. Who upon repeat evaluation patient continued to have refractory symptoms therefore the case was discussed with internal medicine they will admit the patient to their service at this time for continued evaluation. After admission I was contacted by Radiology stating that they addended they were read and the patient has stranding adjacent to the duodenum concerning for peptic ulcer. This patient encounter including triage notes, vital signs, physical exam, laboratory workup, imaging and ultimate disposition were discussed with the attending physician Dr. Squires. Disposition: Admit Brian Langley MD Resident 10/21/202236 Cosigned by Napoleon Squires MD at 10/26/2020 9:43 AM EDT Associated attestation - Napoleon Squires MD - 10/26/2020 9:43 AM EDT I saw and evaluated the patient with the resident/fellow. I discussed the case with the resident/fellow and agree with the findings and plan as documented. * ED Triage Notes - Brooke Trotter, RN - 10/21/2020 3:33 PM EDT Patient has history of pancreatitis. patient came to and was discharged. patient now having increased vomiting and pain documented in this encounter Plan of Treatment Not on file documented as of this encounter Procedures Procedure Name Priority Date/Time Associated Diagnosis Comments MAGNESIUM, PLASMA Routine 11/06/2020 7:3 7 AM EDT BASIC METABOLIC PANEL, PLASMA Routine 11/06/2020 7:37 AM EDT ECG ADULT Routine 11/05/2020 12:41 PM EDT MAGNESIUM, PLASMA Routine 11/05/2020 1:3 3 AM EDT BASIC METABOLIC PANEL, PLASMA Add-On 11/05/2020 1:33 AM EDT EXTRA TUBE LIGHT GREEN TOP Routine 11/05/2020 1:15 AM EDT EXTRA TUBES Routine 11/05/2020 1:15 AM EDT US GUIDED IV INSERTION Routine 11/04/2020 4:58 PM EDT EXTRA TUBE LAVENDER TOP Routine 11/04/2020 2:35 AM EDT EXTRA TUBES Routine 11/04/2020 2:35 AM EDT BASIC METABOLIC PANEL, PLASMA Routine 11/04/2020 2:35 AM EDT US GUIDED IV INSERTION Routine 11/03/2020 5:44 PM EDT US GUIDED IV INSERTION Routine 11/03/2020 5:41 PM EDT SARS COV2 COVID 19/INFLUENZA A, B Routine 11/03/2020 12:21 PM EDT NASOPHARYNGEAL RESPIRATORY PANEL Routine 11/03/2020 12:21 PM EDT MAGNESIUM, PLASMA Routine 11/03/2020 4:2 2 AM EDT BASIC METABOLIC PANEL, PLASMA Routine 11/03/2020 4:22 AM EDT MAGNESIUM, PLASMA Routine 11/02/2020 3:2 8 AM EDT BASIC METABOLIC PANEL, PLASMA Routine 11/02/2020 3:28 AM EDT BASIC METABOLIC PANEL, PLASMA Routine 11/01/2020 3:22 AM EDT BASIC METABOLIC PANEL, PLASMA Routine 10/31/2020 2:54 AM EDT CBC W/O DIFFERENTIAL Routine 10/30/2020 2:16 AM EDT RENAL FUNCTION PANEL, PLASMA Routine 10/30/2020 2:16 AM EDT PAIN MANAGEMENT, QUANTITATIVE URINE DRUG TESTING Routine 10/29/2020 6:20 PM EDT URINALYSIS MICROSCOPIC FOR UA REFLEX Routine 10/29/2020 6:20 PM EDT PAIN MANAGEMENT, QUANTITATIVE URINE DRUG TESTING Routine 10/29/2020 6:20 PM EDT URINALYSIS WITH REFLEX MICROSCOPIC Routine 10/29/2020 6:20 PM EDT URINE CULTURE Routine 10/29/2020 6:20 PM EDT IONIZED CALCIUM, WHOLE BLOOD Routine 10/29/2020 2:02 AM EDT MAGNESIUM, PLASMA Routine 10/29/2020 2:0 2 AM EDT BASIC METABOLIC PANEL, PLASMA Routine 10/29/2020 2:02 AM EDT ECG ADULT Routine 10/28/2020 3:[address] ABDOMEN PELVIS W IV CONTRAST Routine 10/28/2020 12:02 PM EDT MAGNESIUM, PLASMA Add-On 10/28/2020 1:5 0 AM EDT HEPATIC FUNCTION PANEL Add-On 10/28/2020 1:50 AM EDT BASIC METABOLIC PANEL, PLASMA Routine 10/28/2020 1:50 AM EDT LIPASE, PLASMA Routine 10/27/2020 1:46 AM EDT COMPREHENSIVE METABOLIC PANEL, PLASMA Routine 10/27/2020 1:46 AM EDT XR ABDOMEN 1 VIEW Routine 10/26/2020 12: 10 PM EDT LACTATE, VENOUS Routine 10/26/2020 7:56 AM EDT BETA HYDROXYBUTYRIC ACID Add-On 10/26/2020 2:37 AM EDT ASPARTATE AMINOTRANSFERASE, PLASMA Add-On 10/26/2020 2:37 AM EDT ALANINE AMINOTRANSFERASE, PLASMA Add-On 10/26/2020 2:37 AM EDT ALKALINE PHOSPHATASE, PLASMA Add-On 10/26/2020 2:37 AM EDT LIPASE, PLASMA Add-On 10/26/2020 2:37 AM EDT TOTAL BILIRUBIN, PLASMA Add-On 10/26/2020 2:37 AM EDT BASIC METABOLIC PANEL, PLASMA Pending Discharge 10/26/2020 2:37 AM EDT MAGNESIUM, PLASMA Routine 10/25/2020 5:1 3 AM EDT BASIC METABOLIC PANEL, PLASMA Routine 10/25/2020 5:13 AM EDT MAGNESIUM, PLASMA Routine 10/24/2020 5:1 7 AM EDT BASIC METABOLIC PANEL, PLASMA Routine 10/24/2020 5:17 AM EDT MAGNESIUM, PLASMA Routine 10/23/2020 4:3 4 AM EDT COMPREHENSIVE METABOLIC PANEL, PLASMA Routine 10/23/2020 4:34 AM EDT CBC W/O DIFFERENTIAL Routine 10/23/2020 4:23 AM EDT EGD Routine 10/22/2020 3:57 PM EDT Duodenal ulcer Coffee ground emesis SURGICAL PATHOLOGY EXAM Routine 10/22/2020 3:50 PM EDT Epigastric pain Duodenal ulcer Coffee ground emesis CBC W/O DIFFERENTIAL Routine 10/22/2020 3:11 AM EDT PHOSPHORUS, PLASMA Routine 10/22/2020 3: 11 AM EDT MAGNESIUM, PLASMA Routine 10/22/2020 3:1 1 AM EDT COMPREHENSIVE METABOLIC PANEL, PLASMA Routine 10/22/2020 3:11 AM EDT SARS COV-2/COVID-19 BY PCR Routine 10/21/2020 9:03 PM EDT ACUTE HEPATITIS PANEL Routine 10/21/2020 9:03 PM EDT C-REACTIVE PROTEIN, PLASMA Routine 10/21/2020 9:[address] ABDOMEN PELVIS W IV CONTRAST STAT 10/21/2020 6:50 PM EDT LACTATE, VENOUS STAT 10/21/2020 4:12 PM EDT APTT STAT 10/21/2020 4:12 PM EDT PROTHROMBIN TIME(PT) / INR STAT 10/21/2020 4:12 PM EDT CBC WITH AUTO DIFFERENTIAL STAT 10/21/2020 4:12 PM EDT TEST QUALITATIVE PLASMA STAT 10/21/2020 4:12 PM EDT MAGNESIUM, PLASMA STAT 10/21/2020 4:1 2 PM EDT LIPASE, PLASMA STAT 10/21/2020 4:12 PM EDT COMPREHENSIVE METABOLIC PANEL, PLASMA STAT 10/21/2020 4:12 PM EDT documented in this encounter Results * Magnesium (11/06/2020 7:37 AM EDT) Magnesium, Plasma 2.0 1.9 - 2.4 mg/dL 11/06/2020 9:28 AM EDT [facility] Blood Venous blood specimen / Unknown Venipuncture / Unknown 11/06/2020 7:37 AM EDT 11/06/2020 7:50 AM EDT us Dipika Caputo MD LAB BLOOD ORDERABLES Final Re sult [facility] [address] [place] [address] * (ABNORMAL) Basic metabolic panel (11/06/2020 7:37 AM EDT) Glucose, Plasma 97 74 - 99 mg/dL 11/06/2020 9:28 AM EDT [facility] BUN, Plasma 10 7 - 21 mg/dL 11/06/2020 9:28 AM EDT [facility] Creatinine, Plasma 0.76 0.60 - 1.10 mg/dL 11/06/2020 9:28 AM EDT [facility] BUN/Creatinine Ratio 13 11/06/2020 9:28 AM EDT [facility] Sodium, Plasma 139 136 - 145 mmol/L 11/06/2020 9:28 AM EDT [facility] Potassium, Plasma 4.2 3.7 - 4.8 mmol/L 11/06/2020 9:28 AM EDT [facility] Chloride, Plasma 103 97 - 107 mmol/L 11/06/2020 9:28 AM EDT [facility] CO2, Plasma 25 22 - 29 mmol/L 11/06/2020 9:28 AM EDT [facility] Anion Gap 11 6 - 16 mmol/L 11/06/2020 9:28 AM EDT [facility] Total Calcium, Plasma 8.3(L) 8.9 - 10.2 mg/dL 11/06/2020 9:28 AM EDT [facility] eGFR >60 >60 mL/min/1.7 3m*2 11/06/2020 9:28 AM EDT [facility] Comment:eGFR = estimated GFR ; eGFR units = mL/min/1.73 sq meters Chronic Kidney Disease is considered if eGFR <60 mL/min/1.73 sq meters Kidney failure is considered if eGFR is <15 mL/min/1.73 sq meters. eGFR assumes steady state plasma creatinine concentration; not applicable if renal function is rapidly changing or patient is on dialysis. eGFR, if AFR/AM >60 >60 mL/min/1.7 3m*2 11/06/2020 9:28 AM EDT [facility] Comment:eGFR = estimated GFR ; [...] blood specimen / Unknown Venipuncture / Unknown 11/06/2020 7:37 AM EDT 11/06/2020 7:50 AM EDT us Dipika Caputo MD LAB BLOOD ORDERABLES Final Re sult [facility] [address] [place] [address] * ECG Adult (11/05/2020 12:41 PM EDT) EKG DIAGNOSIS CLASS Abnormal MUSE ECG Ventricular Rate 102 BPM MUSE ECG Atrial Rate 102 BPM MUSE ECG OH Interval 124 ms MUSE ECG QRSD Interval 86 ms MUSE ECG QT Interval 356 ms MUSE ECG QTC Interval 463 ms MUSE ECG P [place] 23 degrees MUSE ECG R [place] 46 degrees MUSE ECG T Wave [place] 23 degrees MUSE ECG Diagnosis Sinus tachycardia MUSE ECG Diagnosis Nonspecific T wave abnormality MUSE ECG Diagnosis Confirmed by Gage Carson ([id number]) on 11/05/2020 3:15:11 PM MUSE ECG 11/05/2020 12:4 1 PM EDT 11/05/2020 3:15 PM EDT Dipika Caputo MD ECG ORDERABLES Final Result Performing Organization Address City/[facility]/ZIP Co de Phone Number MUSE ECG * (ABNORMAL) Basic metabolic panel (11/05/2020 1:33 AM EDT) Glucose, Plasma 119(H) 74 - 99 mg/dL 11/05/2020 9:29 PM EDT [facility] BUN, Plasma 5(L) 7 - 21 mg/dL 11/05/2020 9:29 PM EDT [facility] Creatinine, Plasma 0.97 0.60 - 1.10 mg/dL 11/05/2020 9:29 PM EDT [facility] BUN/Creatinine Ratio 5 11/05/2020 9:29 PM EDT [facility] Sodium, Plasma 139 136 - 145 mmol/L 11/05/2020 9:29 PM EDT [facility] Potassium, Plasma 4.2 3.7 - 4.8 mmol/L 11/05/2020 9:29 PM EDT [facility] Chloride, Plasma 103 97 - 107 mmol/L 11/05/2020 9:29 PM EDT [facility] CO2, Plasma 23 22 - 29 mmol/L 11/05/2020 9:29 PM EDT [facility] Anion Gap 13 6 - 16 mmol/L 11/05/2020 9:29 PM EDT [facility] Total Calcium, Plasma 8.4(L) 8.9 - 10.2 mg/dL 11/05/2020 9:29 PM EDT [facility] eGFR >60 >60 mL/min/1.7 3m*2 11/05/2020 9:29 PM EDT [facility] Comment:eGFR = estimated GFR ; eGFR units = mL/min/1.73 sq meters Chronic Kidney Disease is considered if eGFR <60 mL/min/1.73 sq meters Kidney failure is considered if eGFR is <15 mL/min/1.73 sq meters. eGFR assumes steady state plasma creatinine concentration; not applicable if renal function is rapidly changing or patient is on dialysis. eGFR, if AFR/AM >60 >60 mL/min/1.7 3m*2 11/05/2020 9:29 PM EDT [facility] Comment:eGFR = estimated GFR ; [...] blood specimen / Unknown Venipuncture / Unknown 11/05/2020 1:33 AM EDT 11/05/2020 1:38 AM EDT Dipika Caputo MD LAB BLOOD ORDERABLES Final Re sult [facility] [address] [place] [address] * Magnesium (11/05/2020 1:33 AM EDT) Magnesium, Plasma 1.9 1.9 - 2.4 mg/dL 11/05/2020 2:04 AM EDT [facility] Blood Venous blood specimen / Unknown Venipuncture / Unknown 11/05/2020 1:33 AM EDT 11/05/2020 1:38 AM EDT us Luis Angel NAJERA LAB BLOOD ORDERABLES Carolina l Result [facility] [address] [place] [address] * Light Green Top (11/05/2020 1:15 AM EDT) Extra Hold for add-ons. 11/05/2020 4:01 AM EDT [facility] Comment:Auto resulted. Blood Venous blood specimen / Unknown 11/05/2020 1:15 AM EDT 11/05/2020 1:38 AM EDT Dipika Caputo MD LAB BLOOD ORDERABLES Final Re sult Performing Organization Address [facility] Co de Phone Number [facility] [address] [place] [address] * US Guided IV Insertion (11/04/2020 4:58 PM EDT) Narrative SYSTEMGENERATED, 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 - 11/04/2020 4:58 PM EDT These images were captured for the placement of an US-guided IV or PICC line placement. Dipika Caputo MD IMG US PROCEDURES Final Resul t * Lavender Top (11/04/2020 2:35 AM EDT) Extra Hold for add-ons. 11/04/2020 5:01 AM EDT [facility] Comment:Auto resulted. Blood Venous blood specimen / Unknown 11/04/2020 2:35 AM EDT 11/04/2020 2:59 AM EDT Dipika Caputo MD LAB BLOOD ORDERABLES Final Re sult Performing Organization Address [facility] Co de Phone Number [facility] [address] [place] [address] * (ABNORMAL) Basic metabolic panel (11/04/2020 2:35 AM EDT) Glucose, Plasma 121(H) 74 - 99 mg/dL 11/04/2020 3:38 AM EDT [facility] BUN, Plasma 6(L) 7 - 21 mg/dL 11/04/2020 3:38 AM EDT [facility] Creatinine, Plasma 0.74 0.60 - 1.10 mg/dL 11/04/2020 3:38 AM EDT [facility] BUN/Creatinine Ratio 8 11/04/2020 3:38 AM EDT [facility] Sodium, Plasma 139 136 - 145 mmol/L 11/04/2020 3:38 AM EDT [facility] Potassium, Plasma 4.0 3.7 - 4.8 mmol/L 11/04/2020 3:38 AM EDT [facility] Chloride, Plasma 103 97 - 107 mmol/L 11/04/2020 3:38 AM EDT [facility] CO2, Plasma 25 22 - 29 mmol/L 11/04/2020 3:38 AM EDT [facility] Anion Gap 11 6 - 16 mmol/L 11/04/2020 3:38 AM EDT [facility] Total Calcium, Plasma 8.8(L) 8.9 - 10.2 mg/dL 11/04/2020 3:38 AM EDT [facility] eGFR >60 >60 mL/min/1.7 3m*2 11/04/2020 3:38 AM EDT [facility] Comment:eGFR = estimated GFR ; eGFR units = mL/min/1.73 sq meters Chronic Kidney Disease is considered if eGFR <60 mL/min/1.73 sq meters Kidney failure is considered if eGFR is <15 mL/min/1.73 sq meters. eGFR assumes steady state plasma creatinine concentration; not applicable if renal function is rapidly changing or patient is on dialysis. eGFR, if AFR/AM >60 >60 mL/min/1.7 3m*2 11/04/2020 3:38 AM EDT [facility] Comment:eGFR = estimated GFR ; eGFR units = mL/min/1.73 sq meters Chronic Kidney Disease is considered if eGFR <60 mL/min/1.73 sq meters Kidney failure is considered if eGFR is <15 mL/min/1.73 sq meters. eGFR assumes steady state plasma creatinine concentration; not applicable if renal function is rapidly changing or patient is on dialysis. Blood Venous blood specimen / Unknown 11/04/2020 2:35 AM EDT 11/04/2020 2:57 AM EDT Dipika Caputo MD LAB BLOOD ORDERABLES Final Re sult [facility] [address] [place] [id number] * US Guided IV Insertion (11/03/2020 5:44 PM EDT) Narrative SYSTEMGENERATED, 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 - 11/03/2020 5:44 PM EDT These images were captured for the placement of an US-guided IV or PICC line placement. us Dipika Caputo MD IMG US PROCEDURES Final Resul t * US Guided IV Insertion (11/03/2020 5:41 PM EDT) Narrative SYSTEMGENERATED, 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 - 11/03/2020 5:41 PM EDT These images were captured for the placement of an US-guided IV or PICC line placement. us Dipika Caputo MD IM US PROCEDURES Final Resul t * (ABNORMAL) Nasopharyngeal Respiratory Panel (11/03/2020 12:21 PM EDT) Pathologist [facility] Human Rhinovirus/En terovirus PCR Result Detected( A) Not Detected 11/03/2020 6:52 PM EDT [facility] Swab Nasopharyngeal structure / Unknown Non-blood Collection / Unknown 11/03/2020 12:21 PM EDT 11/03/2020 12:24 PM EDT [facility] - 11/03/2020 6:52 PM EDT This assay can detect Adenovirus, [...] Respiratory PCR Panel is performed using the [employer] instrument. ??This test is FDA approved for use with Nasopharyngeal swabs only. This test is used for clinical purposes. It should not be regarded as investigational or for research. The [facility] Clinical Microbiology Laboratory is certified under the Clinical Laboratory Improvement Amendments of 1988 (CLIA-88) as qualified to perform high complexity clinical laboratory testing. Dipika Caputo MD LAB MICROBIOLOGY - GENERAL OR DERABLES Final Result [facility] [address] [place] [address] * SARS-CoV-2 COVID-19/Influenza A,B (11/03/2020 12:21 PM EDT) SARS CoV-2/COVID-1 9 RNA PCR Result Not Detected Not Detected 11/03/2020 12:54 PM EDT [facility] Influenza A Virus PCR Result Not Detected Not Detected 11/03/2020 12:54 PM EDT [facility] Influenza B Virus PCR Result Not Detected Not Detected 11/03/2020 12:54 PM EDT [facility] Swab Nasopharyngeal structure / Unknown Non-blood Collection / Unknown 11/03/2020 12:21 PM EDT 11/03/2020 12:24 PM EDT Narrative [facility] - 11/03/2020 12:54 PM EDT This test was performed using [...] clinical signs and symptoms consistent with COVID-19. Dipika Caputo MD LAB MICROBIOLOGY - GENERAL OR DERABLES Final Result Performing Organization Address City/[facility]/ZIP Co de Phone Number [facility] [address] [place] [address] * (ABNORMAL) Magnesium (11/03/2020 4:22 AM EDT) Magnesium, Plasma 1.8(L) 1.9 - 2.4 mg/dL 11/03/2020 7:10 AM EDT [facility] Blood Venous blood specimen / Unknown Venipuncture / Unknown 11/03/2020 4:22 AM EDT 11/03/2020 6:13 AM EDT Dipika Caputo MD LAB BLOOD ORDERABLES Final Re sult Performing Organization Address City/[facility]/ZIP Co de Phone Number [facility] [address] [place] [address] * (ABNORMAL) Basic metabolic panel (11/03/2020 4:22 AM EDT) Glucose, Plasma 95 74 - 99 mg/dL 11/03/2020 7:10 AM EDT [facility] BUN, Plasma 5(L) 7 - 21 mg/dL 11/03/2020 7:10 AM EDT [facility] Creatinine, Plasma 0.78 0.60 - 1.10 mg/dL 11/03/2020 7:10 AM EDT [facility] BUN/Creatinine Ratio 6 11/03/2020 7:10 AM EDT [facility] Sodium, Plasma 135(L) 136 - 145 mmol/L 11/03/2020 7:10 AM EDT [facility] Potassium, Plasma 3.9 3.7 - 4.8 mmol/L 11/03/2020 7:10 AM EDT [facility] Chloride, Plasma 96(L) 97 - 107 mmol/L 11/03/2020 7:10 AM EDT [facility] CO2, Plasma 23 22 - 29 mmol/L 11/03/2020 7:10 AM EDT [facility] Anion Gap 16 6 - 16 mmol/L 11/03/2020 7:10 AM EDT [facility] Total Calcium, Plasma 9.2 8.9 - 10.2 mg/dL 11/03/2020 7:10 AM EDT [facility] eGFR >60 >60 mL/min/1.7 3m*2 11/03/2020 7:10 AM EDT [facility] Comment:eGFR = estimated GFR ; eGFR units = mL/min/1.73 sq meters Chronic Kidney Disease is considered if eGFR <60 mL/min/1.73 sq meters Kidney failure is considered if eGFR is <15 mL/min/1.73 sq meters. eGFR assumes steady state plasma creatinine concentration; not applicable if renal function is rapidly changing or patient is on dialysis. eGFR, if AFR/AM >60 >60 mL/min/1.7 3m*2 11/03/2020 7:10 AM EDT [facility] Comment:eGFR = estimated GFR [...] blood specimen / Unknown Venipuncture / Unknown 11/03/2020 4:22 AM EDT 11/03/2020 6:13 AM EDT us Dipika Caputo MD LAB BLOOD ORDERABLES Final Re sult Performing Organization Address City/State/[facility] de Phone Number [facility]ALTH[facility]ARE [facility] [address] [place] [address] * (ABNORMAL) Magnesium, Plasma (11/02/2020 3:28 AM EDT) Magnesium, Plasma 1.8(L) 1.9 - 2.4 mg/dL 11/02/2020 6:49 AM EDT [facility] Blood Venous blood specimen / Unknown Venipuncture / Unknown 11/02/2020 3:28 AM EDT 11/02/2020 4:43 AM EDT us Dipika Caputo MD LAB BLOOD ORDERABLES Final Re sult [facility] [address] [place] [address] * (ABNORMAL) Basic metabolic panel (11/02/2020 3:28 AM EDT) Glucose, Plasma 89 74 - 99 mg/dL 11/02/2020 6:49 AM EDT [facility] BUN, Plasma 7 7 - 21 mg/dL 11/02/2020 6:49 AM EDT [facility] Creatinine, Plasma 0.87 0.60 - 1.10 mg/dL 11/02/2020 6:49 AM EDT [facility] BUN/Creatinine Ratio 8 11/02/2020 6:49 AM EDT [facility] Sodium, Plasma 139 136 - 145 mmol/L 11/02/2020 6:49 AM EDT [facility] Potassium, Plasma 4.9(H) 3.7 - 4.8 mmol/L 11/02/2020 6:49 AM EDT [facility] Comment:Hemolyzed, result ma y be falsely increased. Chloride, Plasma 103 97 - 107 mmol/L 11/02/2020 6:49 AM EDT [facility] CO2, Plasma 21(L) 22 - 29 mmol/L 11/02/2020 6:49 AM EDT [facility] Anion Gap 15 6 - 16 mmol/L 11/02/2020 6:49 AM EDT [facility] Total Calcium, Plasma 8.6(L) 8.9 - 10.2 mg/dL 11/02/2020 6:49 AM EDT [facility] eGFR >60 >60 mL/min/1.7 3m*2 11/02/2020 6:49 AM EDT [facility] Comment:eGFR = estimated GFR ; eGFR units = mL/min/1.73 sq meters Chronic Kidney Disease is considered if eGFR <60 mL/min/1.73 sq meters Kidney failure is considered if eGFR is <15 mL/min/1.73 sq meters. eGFR assumes steady state plasma creatinine concentration; not applicable if renal function is rapidly changing or patient is on dialysis. eGFR, if AFR/AM >60 >60 mL/min/1.7 3m*2 11/02/2020 6:49 AM EDT [facility] Comment:eGFR = estimated GFR [...] blood specimen / Unknown Venipuncture / Unknown 11/02/2020 3:28 AM EDT 11/02/2020 4:43 AM EDT us Dipika Caputo MD LAB BLOOD ORDERABLES Final Re sult [facility] [address] [place] [address] * (ABNORMAL) Basic metabolic panel (11/01/2020 3:22 AM EDT) Glucose, Plasma 84 74 - 99 mg/dL 11/01/2020 9:07 AM EDT [facility] BUN, Plasma 5(L) 7 - 21 mg/dL 11/01/2020 9:07 AM EDT [facility] Creatinine, Plasma 0.98 0.60 - 1.10 mg/dL 11/01/2020 9:07 AM EDT [facility] BUN/Creatinine Ratio 5 11/01/2020 9:07 AM EDT [facility] Sodium, Plasma 142 136 - 145 mmol/L 11/01/2020 9:07 AM EDT [facility] Potassium, Plasma 5.3(H) 3.7 - 4.8 mmol/L 11/01/2020 9:07 AM EDT [facility] Comment:Hemolyzed, result ma y be falsely increased. Chloride, Plasma 106 97 - 107 mmol/L 11/01/2020 9:07 AM EDT [facility] CO2, Plasma 14(L) 22 - 29 mmol/L 11/01/2020 9:07 AM EDT [facility] Anion Gap 22(H) 6 - 16 mmol/L 11/01/2020 9:07 AM EDT [facility] Total Calcium, Plasma 8.5(L) 8.9 - 10.2 mg/dL 11/01/2020 9:07 AM EDT [facility] eGFR >60 >60 mL/min/1.7 3m*2 11/01/2020 9:07 AM EDT [facility] Comment:eGFR = estimated GFR ; eGFR units = mL/min/1.73 sq meters Chronic Kidney Disease is considered if eGFR <60 mL/min/1.73 sq meters Kidney failure is considered if eGFR is <15 mL/min/1.73 sq meters. eGFR assumes steady state plasma creatinine concentration; not applicable if renal function is rapidly changing or patient is on dialysis. eGFR, if AFR/AM >60 >60 mL/min/1.7 3m*2 11/01/2020 9:07 AM EDT [facility] Comment:eGFR = estimated GFR ; eGFR units = mL/min/1.73 sq meters Chronic Kidney Disease is considered if eGFR <60 mL/min/1.73 sq meters Kidney failure is considered if eGFR is <15 mL/min/1.73 sq meters. eGFR assumes steady state plasma creatinine concentration; not applicable if renal function is rapidly changing or patient is on dialysis. Blood Venous blood specimen / Unknown Venipuncture / Unknown 11/01/2020 3:22 AM EDT 11/01/2020 4:11 AM EDT us Dipika Caputo MD LAB BLOOD ORDERABLES Final Re sult [facility] [address] [place], [place] [id number] * (ABNORMAL) Basic metabolic panel (10/31/2020 2:54 AM EDT) Glucose, Plasma 87 74 - 99 mg/dL 10/31/2020 5:17 AM EDT [facility] BUN, Plasma 5(L) 7 - 21 mg/dL 10/31/2020 5:17 AM EDT [facility] Creatinine, Plasma 0.94 0.60 - 1.10 mg/dL 10/31/2020 5:17 AM EDT [facility] BUN/Creatinine Ratio 5 10/31/2020 5:17 AM EDT [facility] Sodium, Plasma 143 136 - 145 mmol/L 10/31/2020 5:17 AM EDT [facility] Potassium, Plasma 4.4 3.7 - 4.8 mmol/L 10/31/2020 5:17 AM EDT [facility] Chloride, Plasma 103 97 - 107 mmol/L 10/31/2020 5:17 AM EDT [facility] CO2, Plasma 23 22 - 29 mmol/L 10/31/2020 5:17 AM EDT [facility] Anion Gap 17(H) 6 - 16 mmol/L 10/31/2020 5:17 AM EDT [facility] Total Calcium, Plasma 9.7 8.9 - 10.2 mg/dL 10/31/2020 5:17 AM EDT [facility] eGFR >60 >60 mL/min/1.7 3m*2 10/31/2020 5:17 AM EDT [facility] Comment:eGFR = estimated GFR ; eGFR units = mL/min/1.73 sq meters Chronic Kidney Disease is considered if eGFR <60 mL/min/1.73 sq meters Kidney failure is considered if eGFR is <15 mL/min/1.73 sq meters. eGFR assumes steady state plasma creatinine concentration; not applicable if renal function is rapidly changing or patient is on dialysis. eGFR, if AFR/AM >60 >60 mL/min/1.7 3m*2 10/31/2020 5:17 AM EDT [facility] Comment:eGFR = estimated GFR ; [...] blood specimen / Unknown Venipuncture / Unknown 10/31/2020 2:54 AM EDT 10/31/2020 3:33 AM EDT us Dipika Caputo MD LAB BLOOD ORDERABLES Final Re sult [facility] [address] [place] [address] * CBC W/O Differential (10/30/2020 2:16 AM EDT) WBC Count 5.00 3.70 - 10.30 10*3/uL LAB HEMATOLOGY METHOD 10/30/2020 3:03 AM EDT [facility] RBC Count 4.09 3.90 - 5.20 10*6/uL LAB HEMATOLOGY METHOD 10/30/2020 3:03 AM EDT [facility] HGB 12.1 11.2 - 15.7 g/dL LAB HEMATOLOGY METHOD 10/30/2020 3:03 AM EDT [facility] HCT 35.9 34.0 - 45.0 % LAB HEMATOLOGY METHOD 10/30/2020 3:03 AM EDT [facility] Platelet Count 182 155 - 369 10*3/uL LAB HEMATOLOGY METHOD 10/30/2020 3:03 AM EDT [facility] MCV 88 79 - 98 fL LAB HEMATOLOGY METHOD 10/30/2020 3:03 AM EDT [facility] MCH 29.6 26.0 - 32.0 pg LAB HEMATOLOGY METHOD 10/30/2020 3:03 AM EDT [facility] MCHC 33.7 30.7 - 35.5 g/dL LAB HEMATOLOGY METHOD 10/30/2020 3:03 AM EDT [facility] RDW 13.0 11.5 - 14.5 % LAB HEMATOLOGY METHOD 10/30/2020 3:03 AM EDT [facility] MPV 9.9 8.8 - 12.5 fL LAB HEMATOLOGY METHOD 10/30/2020 3:03 AM EDT [facility] nRBC 0.0 <=0.0 per 100 WBCs LAB HEMATOLOGY METHOD 10/30/2020 3:03 AM EDT [facility] Blood Venous blood specimen / Unknown Venipuncture / Unknown 10/30/2020 2:16 AM EDT 10/30/2020 3:01 AM EDT us Dipika Caputo MD LAB BLOOD ORDERABLES Final Re sult [facility] [address] [place] [address] * (ABNORMAL) Renal function panel (10/30/2020 2:16 AM EDT) Glucose, Plasma 92 74 - 99 mg/dL 10/30/2020 3:36 AM EDT [facility] BUN, Plasma 7 7 - 21 mg/dL 10/30/2020 3:36 AM EDT [facility] Creatinine, Plasma 1.22(H) 0.60 - 1.10 mg/dL 10/30/2020 3:36 AM EDT [facility] BUN/Creatinine Ratio 6 10/30/2020 3:36 AM EDT [facility] Sodium, Plasma 138 136 - 145 mmol/L 10/30/2020 3:36 AM EDT [facility] Potassium, Plasma 4.2 3.7 - 4.8 mmol/L 10/30/2020 3:36 AM EDT [facility] Chloride, Plasma 102 97 - 107 mmol/L 10/30/2020 3:36 AM EDT [facility] CO2, Plasma 24 22 - 29 mmol/L 10/30/2020 3:36 AM EDT [facility] Anion Gap 12 6 - 16 mmol/L 10/30/2020 3:36 AM EDT [facility] Total Calcium, Plasma 8.9 8.9 - 10.2 mg/dL 10/30/2020 3:36 AM EDT [facility] Phosphorus, Plasma 4.9(H) 2.5 - 4.5 mg/dL 10/30/2020 3:36 AM EDT [facility] Albumin, Plasma 4.0 3.5 - 5.2 g/dL 10/30/2020 3:36 AM EDT [facility] eGFR 51(L) >60 mL/min/1.7 3m*2 10/30/2020 3:[facility] Comment:eGFR = estimated GFR ; eGFR units = mL/min/1.73 sq meters Chronic Kidney Disease is considered if eGFR <60 mL/min/1.73 sq meters Kidney failure is considered if eGFR is <15 mL/min/1.73 sq meters. eGFR assumes steady state plasma creatinine concentration; not applicable if renal function is rapidly changing or patient is on dialysis. eGFR, if AFR/AM >60 >60 mL/min/1.7 3m*2 10/30/2020 3:36 AM EDT [facility] Comment:eGFR = estimated GFR ; [...] blood specimen / Unknown Venipuncture / Unknown 10/30/2020 2:16 AM EDT 10/30/2020 3:01 AM EDT Dipika Caputo MD LAB BLOOD ORDERABLES Final Re sult Performing Organization Address [facility] Co de Phone Number [facility] [address] [place] [address] * Urinalysis Microscopic Examination (10/29/2020 6:20 PM EDT) Urine Urine specimen obtained by clean catch procedure / Unknown 10/29/2020 6:20 PM EDT 10/29/2020 6:44 PM EDT Sarahy NAJERA LAB URINE ORDERABLES Final Res ult Performing Organization Address [facility] Co de Phone Number [facility] [address] [place] [address] * (ABNORMAL) Pain Management, Quantitative Urine (10/29/2020 6:20 PM EDT) [place] Alprazolam <20 <20 ng/mL 10/31 10:22 PM EDT [facility] [place] Midazolam <20 <20 ng/mL 2020 10:22 PM EDT [facility] [place] Triazolam <20 <20 ng/mL 2020 10:22 PM EDT [facility] Alprazolam <10 <10 ng/mL 10/31/2020 10:22 PM EDT [facility] Aminoclonazepam <20 <20 ng/mL 10:22 PM EDT [facility] Amphetamine <50 <50 ng/mL 10/31/2020 10:22 PM EDT [facility] Benzoylecgonine <50 <50 ng/mL 10:22 PM EDT [facility] Buprenorphine <10 <10 ng/mL 10/31/2020 10:22 PM EDT [facility] Buprenorphine Glucuronide <50 <50 ng/mL 10/31/2020 10:22 PM EDT [facility] Butalbital <50 <50 ng/mL 10/31/2020 10:22 PM EDT [facility] 9 Carboxy THC <10 <10 ng/mL 10/31/2020 10:22 PM EDT [facility] 9 Carboxy THC Glucuronide <50 <50 ng/mL 10/31/2020 10:22 PM EDT [facility] Clonazepam <10 <10 ng/mL 10/31/2020 10:22 PM EDT [facility] Codeine <50 <50 ng/mL 10/31/2020 10:22 PM EDT [facility] Codeine Glucuronide <50 <50 ng/mL 10/31 10:22 PM EDT [facility] Cyclobenzaprine <50 <50 ng/mL 10:22 PM EDT [facility] Desmethyl Tramadol <50 <50 ng/mL 2020 10:22 PM EDT [facility] Diazepam <10 <10 ng/mL 10/31/2020 10:22 PM EDT [facility] EDDP - Methadone Metabolite <50 <50 ng/mL 10/31/2020 10:22 PM EDT [facility] Fentanyl <1 <1 ng/mL 10/31/2020 10:22 PM EDT [facility] Hydrocodone <50 <50 ng/mL 10/31/2020 10:22 PM EDT [facility] Hydromorphone <50 <50 ng/mL 10/31/2020 10:22 PM EDT [facility] Hydromorphone Glucuronide <50 <50 ng/mL 10/31/2020 10:22 PM EDT [facility] Lorazepam <20 <20 ng/mL 10/31/2020 10:22 PM EDT [facility] Lorazepam Glucuronide <50 <50 ng/mL 10/31/2020 10:22 PM EDT [facility] MDA <50 <50 ng/mL 10/31/2020 10:22 PM EDT [facility] MDMA <50 <50 ng/mL 10/31/2020 10:22 PM EDT [facility] Meperidine <50 <50 ng/mL 10/31/2020 10:22 PM EDT [facility] Methadone <50 <50 ng/mL 10/31/2020 10:22 PM EDT [facility] Methamphetamine <50 <50 ng/mL 10:22 PM EDT [facility] Methylphenidate 62(H) <50 ng/mL 10:22 PM EDT [facility] 6 Monoacetyl morphine <10 <10 ng/mL 10/31/2020 10:22 PM EDT [facility] Morphine <50 <50 ng/mL 10/31/2020 10:22 PM EDT [facility] Morphine Glucuronide <50 <50 ng/mL 09/2020 10:22 PM EDT [facility] Naloxone <50 <50 ng/mL 10/31/2020 10:22 PM EDT [facility] Naloxone Glucuronide <50 <50 ng/mL 09/2020 10:22 PM EDT [facility] Norbuprenorphine <10 <10 ng/mL 11/01/19 10:22 PM EDT [facility] Norbuprenorphine Glucuronide <50 <50 ng/mL 10/31/2020 10:22 PM EDT [facility] Nordiazepam <20 <20 ng/mL 10/31/2020 10:22 PM EDT [facility] Norfentanyl <2 <2 ng/mL 10/31/2020 10:22 PM EDT [facility] Normeperidine <50 <50 ng/mL 10/31/2020 10:22 PM EDT [facility] PCP Quant, Ur <50 <50 ng/mL 10/31/2020 10:22 PM EDT [facility] Phenobarbital <50 <50 ng/mL 10/31/2020 10:22 PM EDT [facility] Oxazepam <20 <20 ng/mL 10/31/2020 10:22 PM EDT [facility] Oxazepam Glucuronide <50 <50 ng/mL 09/2020 10:22 PM EDT [facility] Oxycodone 407(H) <50 ng/mL 10/31/2020 10:22 PM EDT [facility] Oxymorphone <50 <50 ng/mL 10/31/2020 10:22 PM EDT [facility] Oxymorphone Glucuronide 231(H) <50 ng/mL 10/31/2020 10:22 PM EDT [facility] Secobarbital <50 <50 ng/mL 10/31/2020 10:22 PM EDT [facility] Tramadol <50 <50 ng/mL 10/31/2020 10:22 PM EDT [facility] Temazepam <20 <20 ng/mL 10/31/2020 10:22 PM EDT [facility] Temazepam Glucuronide <50 <50 ng/mL 10/31/2020 10:22 PM EDT [facility] Urine Urine specimen obtained by clean catch procedure / Unknown 10/29/2020 6:20 PM EDT 10/29/2020 6:44 PM EDT Narrative [facility] - 10/31/2020 10:22 PM EDT Methodology:Quantitative Liquid Chromatography-Tandem Mass Spectrometry (LC- [...] developed and its performance characteristics determined by [facility] in manner consistent with CLIA requirements. This test has not been cleared or approved by the FDA. [employer] URINE ORDERABLES Final Res ult Performing Organization Address [facility] Co de Phone Number [facility] [address] [place] [address] * (ABNORMAL) Urine Culture - clean catch (10/29/2020 6:20 PM EDT) Culture 10,000 - 100,000 CFU/mL Mixed urogenital , fecal, or skin ángela present.(A ) 10/31/2020 6:38 AM EDT [facility] Urine Urine specimen obtained by clean catch procedure / Unknown Non-blood Collection / Unknown 10/29/2020 6:20 PM EDT 10/29/2020 6:45 PM EDT Sarahy D [employer] MICROBIOLOGY - GENERAL ORD ERABLES Final Result Performing Organization Address City/[facility]/ZIP Co de Phone Number [facility] [address] [place] [address] * (ABNORMAL) Urinalysis with reflex microscopic - clean catch (10/29/2020 6:20 PM EDT) Color, Urine Yellow LAB URINALYSIS - AUTOMATED METHOD 10/29/2020 7:24 PM EDT [facility] Clarity, Urine Clear LAB URINALYSIS - AUTOMATED METHOD 10/29/2020 7:24 PM EDT [facility] Spec [place], Urine <=1.005 <=1.005 to >=1.030 LAB URINALYSIS - AUTOMATED METHOD 10/29/2020 7:24 PM EDT [facility] pH, Urine 8.0 4.5 to 8 LAB URINALYSIS - AUTOMATED METHOD 10/29/2020 7:24 PM EDT [facility] Protein, Urine Negative Negative mg/dL LAB URINALYSIS - AUTOMATED METHOD 10/29/2020 7:24 PM EDT [facility] Glucose, Urine Negative Negative mg/dL LAB URINALYSIS - AUTOMATED METHOD 10/29/2020 7:24 PM EDT [facility] Ketones, Urine Negative Negative mg/dL LAB URINALYSIS - AUTOMATED METHOD 10/29/2020 7:24 PM EDT [facility] Blood, Urine Large(A) Negative LAB URINALYSIS - AUTOMATED METHOD 10/29/2020 7:24 PM EDT [facility] Bilirubin, Urine Negative Negative LAB URINALYSIS - AUTOMATED METHOD 10/29/2020 7:24 PM EDT [facility] Urobilinogen, Urine 0.2 0.2 to 1.0 mg/dL LAB URINALYSIS - AUTOMATED METHOD 10/29/2020 7:24 PM EDT [facility] Leukocytes, Urine Negative Negative LAB URINALYSIS - AUTOMATED METHOD 10/29/2020 7:24 PM EDT [facility] Nitrite, Urine Negative Negative LAB URINALYSIS - AUTOMATED METHOD 10/29/2020 7:24 PM EDT [facility] RBC, Urine 11 - 15(A) 0 to 3 /HPF 10/29/2020 7:24 PM EDT [facility] WBC, Urine 0 - 5 0 to 5 /HPF 10/29/2020 7:24 PM EDT [facility] Squamous Epithelial Cells 0 - 5 0 to 5 /HPF 10/29/2020 7:24 PM EDT [facility] Hyaline Casts 0 - 8 0 to 8 /LPF 10/29/2020 7:24 PM EDT [facility] Bacteria, Urine Negative Negative 10/29/2020 7:24 PM EDT [facility] Urine Urine specimen obtained by clean catch procedure / Unknown 10/29/2020 6:20 PM EDT 10/29/2020 6:44 PM EDT Sarahy NAJERA LAB URINE ORDERABLES Final Res ult Performing Organization Address [facility]/ZIP Co de Phone Number [facility] [address] [place] [address] * Magnesium (10/29/2020 2:02 AM EDT) Magnesium, Plasma 2.2 1.9 - 2.4 mg/dL 10/29/2020 2:52 AM EDT [facility] Blood Venous blood specimen / Unknown Venipuncture / Unknown 10/29/2020 2:02 AM EDT 10/29/2020 2:20 AM EDT Dipika Caputo MD LAB BLOOD ORDERABLES Final Re sult Performing Organization Address [facility] Co de Phone Number [facility] [address] [place] [address] * (ABNORMAL) Basic metabolic panel (10/29/2020 2:02 AM EDT) Glucose, Plasma 80 74 - 99 mg/dL 10/29/2020 2:52 AM EDT [facility] BUN, Plasma 6(L) 7 - 21 mg/dL 10/29/2020 2:52 AM EDT [facility] Creatinine, Plasma 0.93 0.60 - 1.10 mg/dL 10/29/2020 2:52 AM EDT [facility] BUN/Creatinine Ratio 6 10/29/2020 2:52 AM EDT [facility] Sodium, Plasma 137 136 - 145 mmol/L 10/29/2020 2:52 AM EDT [facility] Potassium, Plasma 4.0 3.7 - 4.8 mmol/L 10/29/2020 2:52 AM EDT [facility] Chloride, Plasma 101 97 - 107 mmol/L 10/29/2020 2:52 AM EDT [facility] CO2, Plasma 23 22 - 29 mmol/L 10/29/2020 2:52 AM EDT [facility] Anion Gap 13 6 - 16 mmol/L 10/29/2020 2:52 AM EDT [facility] Total Calcium, Plasma 8.7(L) 8.9 - 10.2 mg/dL 10/29/2020 2:52 AM EDT [facility] eGFR >60 >60 mL/min/1.7 3m*2 10/29/2020 2:52 AM EDT [facility] Comment:eGFR = estimated GFR ; eGFR units = mL/min/1.73 sq meters Chronic Kidney Disease is considered if eGFR <60 mL/min/1.73 sq meters Kidney failure is considered if eGFR is <15 mL/min/1.73 sq meters. eGFR assumes steady state plasma creatinine concentration; not applicable if renal function is rapidly changing or patient is on dialysis. eGFR, if AFR/AM >60 >60 mL/min/1.7 3m*2 10/29/2020 2:52 AM EDT [facility] Comment:eGFR = estimated GFR ; [...] blood specimen / Unknown Venipuncture / Unknown 10/29/2020 2:02 AM EDT 10/29/2020 2:20 AM EDT Dipika Caputo MD LAB BLOOD ORDERABLES Final Re sult [facility] [address] [place] [address] * Ionized calcium, whole blood (10/29/2020 2:02 AM EDT) Ionized Calcium, Whole Blood 4.7 4.6 - 5.1 mg/dL LAB HEMATOLOGY METHOD 10/29/2020 2:22 AM EDT [facility] Blood Venous blood specimen / Unknown Venipuncture / Unknown 10/29/2020 2:02 AM EDT 10/29/2020 2:20 AM EDT Dipika Caputo MD LAB BLOOD ORDERABLES Final Re sult [facility] [address] [place] [address] * ECG Adult (10/28/2020 3:41 PM EDT) EKG DIAGNOSIS CLASS Normal MUSE ECG Ventricular Rate 84 BPM MUSE ECG Atrial Rate 84 BPM MUSE ECG OH Interval 136 ms MUSE ECG QRSD Interval 86 ms MUSE ECG QT Interval 378 ms MUSE ECG QTC Interval 446 ms MUSE ECG P [place] 22 degrees MUSE ECG R [place] 18 degrees MUSE ECG T Wave [place] 19 degrees MUSE ECG Diagnosis Normal sinus rhythm MUSE ECG Diagnosis Normal ECG MUSE ECG Diagnosis Confirmed by Sundeep Skinner ([id number]) on 10/29/2020 11:18:02 AM MUSE ECG 10/28/2020 3:41 PM EDT 10/29/2020 11:18 AM EDT Dipika Caputo MD ECG ORDERABLES Final Result Performing Organization Address City/[facility] Co de Phone Number MUSE ECG * CT Abdomen Pelvis w IV Contrast (10/28/2020 12:02 PM EDT) Anatomical Region Laterality Modality Abdomen, Pelvis Computed Tomogra phy Impressions 10/28/2020 12:30 PM EDT No acute intra-abdominal or pelvic CT abnormality 24 mm right breast mass. Correlation is recommended with mammographic or breast ultrasound findings. This has been present since 2017, suggesting benignity. CRITICAL RESULT: ?? No. COMMUNICATION: Per this written report. Signed by Gage Nelson on ??10/28/2020 12:30 PM Narrative 10/28/2020 12:30 PM EDT Exam/Procedure: CT ABDOMEN PELVIS W IV CONTRAST ordered by DIPIKA CAPUTO V, [id number] CLINICAL INDICATION: Left upper quadrant abdominal pain TECHNIQUE: Multiple axial CT images were obtained from lung bases through pubic symphysis following administration of IV contrast, Omnipaque 300, 100 mL. Delayed images of abdomen and kidneys also obtained. Reformatted images in the coronal and sagittal planes were generated from the axial data set to facilitate diagnostic accuracy. Total DLP (Dose-Length Product): 1568.34 mGy.cm. Please note: The reported value represents the total of one or more individual components during the CT acquisition on this date and at this time, and as such, the same value may appear in more than one CT report depending on the interpreting/reporting physicians. COMPARISON: None. FINDINGS: Lower Chest: October 21, 2020. Solid Abdominal Organs: The liver is normal. The gallbladder is absent. No bile duct dilation. The pancreas, spleen, adrenal glands, and kidneys are normal. GI Tract/Mesentery/Peritoneum: The stomach and duodenum are within normal limits. No evidence of bowel obstruction. The appendix is normal. No colonic mass or obstruction. No peritoneal nodularity. No free air. Pelvic Viscera: There is an enhancing nodule within the uterus, likely a leiomyoma. The ovaries are normal. The bladder is within normal limits. Lymph Nodes/Vasculature: No adenopathy. No large vessel occlusion is seen Free Fluid:No free fluid Musculoskeletal and Body Wall:There is a solid mass in the right breast measuring up to 24 mm. There are multiple inflammatory nodules and subcutaneous fat of the abdominal wall, likely sites of injection. No suspicious osseous lytic or blastic lesion. Procedure Note Gage Nelson MD - 10/28/2020 Exam/Procedure: CT ABDOMEN PELVIS W IV CONTRAST ordered by DIPIKA MCDANIEL, [id number] CLINICAL INDICATION: Left upper quadrant abdominal pain TECHNIQUE: Multiple axial CT images were obtained from lung bases through pubicsymphysis following administration of IV contrast, Omnipaque 300, 100 mL.Delayed images of abdomen and kidneys also obtained. Reformatted images inthe coronal and sagittal planes were generated from the axial data set tofacilitate diagnostic accuracy. Total DLP (Dose-Length Product): 1568.34 mGy.cm. Please note: The reportedvalue represents the total of one or more individual components during theCT acquisition on this date and at this time, and as such, the same valuemay appear in more than one CT report depending on theinterpreting/reporting physicians. COMPARISON: None. FINDINGS: Lower Chest: October 21, 2020. Solid Abdominal Organs: The liver is normal. The gallbladder is absent. Nobile duct dilation. The pancreas, spleen, adrenal glands, and kidneys arenormal. GI Tract/Mesentery/Peritoneum: The stomach and duodenum are within normallimits. No evidence of bowel obstruction. The appendix is normal. Nocolonic mass or obstruction. No peritoneal nodularity. No free air. Pelvic Viscera: There is an enhancing nodule within the uterus, likely aleiomyoma. The ovaries are normal. The bladder is within normal limits. Lymph Nodes/Vasculature: No adenopathy. No large vessel occlusion isseen Free Fluid:No free fluid Musculoskeletal and Body Wall:There is a solid mass in the right breastmeasuring up to 24 mm. There are multiple inflammatory nodules andsubcutaneous fat of the abdominal wall, likely sites of injection. Nosuspicious osseous lytic or blastic lesion. IMPRESSION: No acute intra-abdominal or pelvic CT abnormality 24 mm right breast mass. Correlation is recommended with mammographic orbreast ultrasound findings. This has been present since 2017, suggestingbenignity. CRITICAL RESULT: No. COMMUNICATION: Per this written report. Signed by aGge Nelson on 10/28/2020 12:30 PM Dipika Caputo MD IMG CT PROCEDURES Final Resul t * (ABNORMAL) Magnesium (10/28/2020 1:50 AM EDT) [facility] Magnesium, Plasma 1.8(L) 1.9 - 2.4 mg/dL 10/28/2020 8:39 AM EDT [facility] Blood Venous blood specimen / Unknown Venipuncture / Unknown 10/28/2020 1:50 AM EDT 10/28/2020 1:53 AM EDT Dipika Caputo MD LAB BLOOD ORDERABLES Final Re sult [facility] [address] [place] [address] * (ABNORMAL) Hepatic function panel (10/28/2020 1:50 AM EDT) Pathologist [facility] Conjugated Bilirubin, Plasma <0.2 0.0 - 0.3 mg/dL 10/28/2020 12:06 PM EDT [facility] Alkaline Phosphatase, Plasma 64 35 - 104 U/L 10/28/2020 12:06 PM EDT [facility] Total Bilirubin, Plasma <0.2(L) 0.2 - 1.1 mg/dL 10/28/2020 12:06 PM EDT [facility] Albumin, Plasma 3.3(L) 3.5 - 5.2 g/dL 10/28/2020 12:06 PM EDT [facility] Total Protein 5.1(L) 6.3 - 7.9 g/dL 10/28/2020 12:06 PM EDT [facility] ALT, Plasma 15 8 - 33 U/L 10/28/2020 12:06 PM EDT [facility] AST, Plasma 18 11 - 32 U/L 10/28/2020 12:06 PM EDT [facility] Blood Venous blood specimen / Unknown Venipuncture / Unknown 10/28/2020 1:50 AM EDT 10/28/2020 1:53 AM EDT Dipika Caputo MD LAB BLOOD ORDERABLES Final Re sult [facility] [address] [place] [address] * (ABNORMAL) Basic metabolic panel (10/28/2020 1:50 AM EDT) Glucose, Plasma 75 74 - 99 mg/dL 10/28/2020 3:18 AM EDT [facility] BUN, Plasma 3(L) 7 - 21 mg/dL 10/28/2020 3:18 AM EDT [facility] Creatinine, Plasma 0.54(L) 0.60 - 1.10 mg/dL 10/28/2020 3:18 AM EDT [facility] BUN/Creatinine Ratio 6 10/28/2020 3:18 AM EDT [facility] Sodium, Plasma 138 136 - 145 mmol/L 10/28/2020 3:18 AM EDT [facility] Potassium, Plasma 3.3(L) 3.7 - 4.8 mmol/L 10/28/2020 3:18 AM EDT [facility] Chloride, Plasma 108(H) 97 - 107 mmol/L 10/28/2020 3:18 AM EDT [facility] CO2, Plasma 18(L) 22 - 29 mmol/L 10/28/2020 3:18 AM EDT [facility] Anion Gap 12 6 - 16 mmol/L 10/28/2020 3:18 AM EDT [facility] Total Calcium, Plasma 7.1(L) 8.9 - 10.2 mg/dL 10/28/2020 3:18 AM EDT [facility] eGFR >60 >60 mL/min/1.7 3m*2 10/28/2020 3:18 AM EDT [facility] Comment:eGFR = estimated GFR ; eGFR units = mL/min/1.73 sq meters Chronic Kidney Disease is considered if eGFR <60 mL/min/1.73 sq meters Kidney failure is considered if eGFR is <15 mL/min/1.73 sq meters. eGFR assumes steady state plasma creatinine concentration; not applicable if renal function is rapidly changing or patient is on dialysis. eGFR, if AFR/AM >60 >60 mL/min/1.7 3m*2 10/28/2020 3:18 AM EDT [facility] Comment:eGFR = estimated GFR ; [...] blood specimen / Unknown Venipuncture / Unknown 10/28/2020 1:50 AM EDT 10/28/2020 1:53 AM EDT Dipika Caputo MD LAB BLOOD ORDERABLES Final Re sult [facility] [address] [place] [address] * Lipase (10/27/2020 1:46 AM EDT) Lipase, Plasma 61 19 - 63 U/L 10/27/2020 2:36 AM EDT [facility] Blood Venous blood specimen / Unknown Venipuncture / Unknown 10/27/2020 1:46 AM EDT 10/27/2020 2:02 AM EDT us Dipika Caputo MD LAB BLOOD ORDERABLES Final Re sult [facility] [address] [place] [address] * (ABNORMAL) Comprehensive metabolic panel (10/27/2020 1:46 AM EDT) Glucose, Plasma 85 74 - 99 mg/dL 10/27/2020 2:36 AM EDT [facility] BUN, Plasma 5(L) 7 - 21 mg/dL 10/27/2020 2:36 AM EDT [facility] Creatinine, Plasma 0.79 0.60 - 1.10 mg/dL 10/27/2020 2:36 AM EDT [facility] BUN/Creatinine Ratio 6 10/27/2020 2:36 AM EDT [facility] Sodium, Plasma 139 136 - 145 mmol/L 10/27/2020 2:36 AM EDT [facility] Potassium, Plasma 4.6 3.7 - 4.8 mmol/L 10/27/2020 2:36 AM EDT [facility] Comment:Hemolyzed, result ma y be falsely increased. Chloride, Plasma 102 97 - 107 mmol/L 10/27/2020 2:36 AM EDT [facility] CO2, Plasma 24 22 - 29 mmol/L 10/27/2020 2:36 AM EDT [facility] Anion Gap 13 6 - 16 mmol/L 10/27/2020 2:36 AM EDT [facility] Total Calcium, Plasma 9.1 8.9 - 10.2 mg/dL 10/27/2020 2:36 AM EDT [facility] Total Protein 6.6 6.3 - 7.9 g/dL 10/27/2020 2:36 AM EDT [facility] Albumin, Plasma 3.9 3.5 - 5.2 g/dL 10/27/2020 2:36 AM EDT [facility] AST, Plasma 26 11 - 32 U/L 10/27/2020 2:36 AM EDT [facility] Comment:Hemolyzed, result ma y be falsely increased. ALT, Plasma 14 8 - 33 U/L 10/27/2020 2:36 AM EDT [facility] Comment:Hemolyzed, result ma y be falsely increased or decreased. Alkaline Phosphatase, Plasma 72 35 - 104 U/L 10/27/2020 2:36 AM EDT [facility] Total Bilirubin, Plasma 0.2 0.2 - 1.1 mg/dL 10/27/2020 2:36 AM EDT [facility] eGFR >60 >60 mL/min/1.7 3m*2 10/27/2020 2:36 AM EDT [facility] Comment:eGFR = estimated GFR ; eGFR units = mL/min/1.73 sq meters Chronic Kidney Disease is considered if eGFR <60 mL/min/1.73 sq meters Kidney failure is considered if eGFR is <15 mL/min/1.73 sq meters. eGFR assumes steady state plasma creatinine concentration; not applicable if renal function is rapidly changing or patient is on dialysis. eGFR, if AFR/AM >60 >60 mL/min/1.7 3m*2 10/27/2020 2:36 AM EDT [facility] Comment:eGFR = estimated GFR ; eGFR units = mL/min/1.73 sq meters Chronic Kidney Disease is considered if eGFR <60 mL/min/1.73 sq meters Kidney failure is considered if eGFR is <15 mL/min/1.73 sq meters. eGFR assumes steady state plasma creatinine concentration; not applicable if renal function is rapidly changing or patient is on dialysis. Blood Venous blood specimen / Unknown Venipuncture / Unknown 10/27/2020 1:46 AM EDT 10/27/2020 2:02 AM EDT us Dipika Caupto MD LAB BLOOD ORDERABLES Final Re sult [facility] [address] [place] [address] * XR Abdomen 1 View (10/26/2020 12:10 PM EDT) Anatomical Region Laterality Modality Body Digital Radiogra phy Impressions 10/26/2020 2:19 PM EDT Nonobstructing bowel gas pattern. CRITICAL RESULT: ?? No. COMMUNICATION: Per this written report. Dictated by Jaen Paul Bonilla M.D. on 10/26/2020 1:30 PM By electronically signing this report, I, the attending physician, attest that I have personally reviewed the images/data for the above examination(s) and agree with the final edited report. Signed by Rhonda Maria on ??10/26/2020 2:19 PM Narrative 10/26/2020 2:19 PM EDT Exam/Procedure: XR ABDOMEN 1 VIEW ordered by DIPIKA CAPUTO V [id number] CLINICAL INDICATION: Abdominal pain, constipation TECHNIQUE: XR ABDOMEN 1 VIEW COMPARISON: CT abdomen pelvis 10/21/2020 FINDINGS: Bilateral lung bases are clear. No subdiaphragmatic air to suggest free air. Postcholecystectomy clips. Gas within loops of small bowel and large bowel without overt dilatation. Moderate stool burden throughout the right colon. Procedure Note Rhonda Maria MD - 10/26/2020 Exam/Procedure: XR ABDOMEN 1 VIEW ordered by DIPIKA CAPUTO V [id number] CLINICAL INDICATION: Abdominal pain, constipation TECHNIQUE: XR ABDOMEN 1 VIEW COMPARISON: CT abdomen pelvis 10/21/2020 FINDINGS: Bilateral lung bases are clear. No subdiaphragmatic air to suggest freeair. Postcholecystectomy clips. Gas within loops of small bowel and largebowel without overt dilatation. Moderate stool burden throughout the rightcolon. IMPRESSION: Nonobstructing bowel gas pattern. CRITICAL RESULT: No. COMMUNICATION: Per this written report. Dictated by Jean Paul Bonilla M.D. on 10/26/2020 1:30 PM By electronically signing this report, I, the attending physician, attestthat I have personally reviewed the images/data for the aboveexamination(s) and agree with the final edited report. Signed by Rhonda Maria on 10/26/2020 2:19 PM us Dipika Caputo MD IMG XR PROCEDURES Final Resul t * Lactate, venous (10/26/2020 7:56 AM EDT) Lactate, Venous, Whole Blood 1.3 0.5 - 2.2 mmol/L LAB HEMATOLOGY METHOD 10/26/2020 8:03 AM EDT [facility] Blood Venous blood specimen / Unknown Venipuncture / Unknown 10/26/2020 7:56 AM EDT 10/26/2020 8:01 AM EDT us Dipika Caputo MD LAB BLOOD ORDERABLES Final Re sult Performing Organization Address [facility] Co de Phone Number [facility] [address] [place] [address] * Aspartate Aminotransferase, Plasma (10/26/2020 2:37 AM EDT) AST, Plasma 22 11 - 32 U/L 10/26/2020 1:03 PM EDT [facility] Blood Venous blood specimen / Unknown Venipuncture / Unknown 10/26/2020 2:37 AM EDT 10/26/2020 2:40 AM EDT us Dipika Caputo MD LAB BLOOD ORDERABLES Final Re sult Performing Organization Address [facility] de Phone Number [facility] [address] [place] [address] * Alanine Aminotransferase, Plasma (10/26/2020 2:37 AM EDT) ALT, Plasma 12 8 - 33 U/L 10/26/2020 1:03 PM EDT [facility] Blood Venous blood specimen / Unknown Venipuncture / Unknown 10/26/2020 2:37 AM EDT 10/26/2020 2:40 AM EDT us Dipika Caputo MD LAB BLOOD ORDERABLES Final Re sult Performing Organization Address City/[facility] de Phone Number [facility] [address] [place] [address] * Alkaline Phosphatase (10/26/2020 2:37 AM EDT) Alkaline Phosphatase, Plasma 65 35 - 104 U/L 10/26/2020 1:04 PM EDT [facility] Blood Venous blood specimen / Unknown Venipuncture / Unknown 10/26/2020 2:37 AM EDT 10/26/2020 2:40 AM EDT us Dipika Caputo MD LAB BLOOD ORDERABLES Final Re sult Performing Organization Address [facility] de Phone Number [facility] [address] [place] [address] * (ABNORMAL) Bilirubin, total (10/26/2020 2:37 AM EDT) Total Bilirubin, Plasma <0.2(L) 0.2 - 1.1 mg/dL 10/26/2020 1:04 PM EDT [facility] Blood Venous blood specimen / Unknown Venipuncture / Unknown 10/26/2020 2:37 AM EDT 10/26/2020 2:40 AM EDT us Dipika Caputo MD LAB BLOOD ORDERABLES Final Re sult Performing Organization Address [facility] de Phone Number [facility] [address] [place] [address] * Lipase (10/26/2020 2:37 AM EDT) Lipase, Plasma 19 19 - 63 U/L 10/26/2020 1:06 PM EDT [facility] Blood Venous blood specimen / Unknown Venipuncture / Unknown 10/26/2020 2:37 AM EDT 10/26/2020 2:40 AM EDT us Dipika Caputo MD LAB BLOOD ORDERABLES Final Re sult Performing Organization Address [facility] de Phone Number [facility] [address] [place] [address] * BETA HYDROXYBUTYRIC ACID (10/26/2020 2:37 AM EDT) Beta-Hydroxybu tyric Acid, Plasma 0.11 <=0.27 mmol/L 10/26/2020 12:04 PM EDT [facility] Blood Venous blood specimen / Unknown Venipuncture / Unknown 10/26/2020 2:37 AM EDT 10/26/2020 2:40 AM EDT us Dipika Caputo MD LAB BLOOD ORDERABLES Final Re sult Performing Organization Address City/[facility] Co de Phone Number [facility] [address] [place] [address] * (ABNORMAL) Basic metabolic panel (10/26/2020 2:37 AM EDT) Glucose, Plasma 117(H) 74 - 99 mg/dL 10/26/2020 5:40 AM EDT [facility] BUN, Plasma 7 7 - 21 mg/dL 10/26/2020 5:40 AM EDT [facility] Creatinine, Plasma 0.86 0.60 - 1.10 mg/dL 10/26/2020 5:40 AM EDT [facility] BUN/Creatinine Ratio 8 10/26/2020 5:40 AM EDT [facility] Sodium, Plasma 138 136 - 145 mmol/L 10/26/2020 5:40 AM EDT [facility] Potassium, Plasma 4.4 3.7 - 4.8 mmol/L 10/26/2020 5:40 AM EDT [facility] Comment:Hemolyzed, result ma y be falsely increased. Chloride, Plasma 101 97 - 107 mmol/L 10/26/2020 5:40 AM EDT [facility] CO2, Plasma 19(L) 22 - 29 mmol/L 10/26/2020 5:40 AM EDT [facility] Anion Gap 18(H) 6 - 16 mmol/L 10/26/2020 5:40 AM EDT [facility] Total Calcium, Plasma 8.6(L) 8.9 - 10.2 mg/dL 10/26/2020 5:40 AM EDT [facility] eGFR >60 >60 mL/min/1.7 3m*2 10/26/2020 5:40 AM EDT [facility] Comment:eGFR = estimated GFR ; eGFR units = mL/min/1.73 sq meters Chronic Kidney Disease is considered if eGFR <60 mL/min/1.73 sq meters Kidney failure is considered if eGFR is <15 mL/min/1.73 sq meters. eGFR assumes steady state plasma creatinine concentration; not applicable if renal function is rapidly changing or patient is on dialysis. eGFR, if AFR/AM >60 >60 mL/min/1.7 3m*2 10/26/2020 5:40 AM EDT [facility] Comment:eGFR = estimated GFR ; [...] blood specimen / Unknown Venipuncture / Unknown 10/26/2020 2:37 AM EDT 10/26/2020 2:40 AM EDT Dipkia Caputo MD LAB BLOOD ORDERABLES Final Re sult Performing Organization Address [facility] de Phone Number [facility] [address] [place] [address] * Magnesium (10/25/2020 5:13 AM EDT) Magnesium, Plasma 2.0 1.9 - 2.4 mg/dL 10/25/2020 5:40 AM EDT [facility] Blood Venous blood specimen / Unknown Venipuncture / Unknown 10/25/2020 5:13 AM EDT 10/25/2020 5:17 AM EDT Dipika Caputo MD LAB BLOOD ORDERABLES Final Re sult Performing Organization Address [facility] de Phone Number [facility] [address] [place] [address] * Basic metabolic panel (10/25/2020 5:13 AM EDT) Glucose, Plasma 86 74 - 99 mg/dL 10/25/2020 5:40 AM EDT [facility] BUN, Plasma 8 7 - 21 mg/dL 10/25/2020 5:40 AM EDT [facility] Creatinine, Plasma 0.71 0.60 - 1.10 mg/dL 10/25/2020 5:40 AM EDT [facility] BUN/Creatinine Ratio 11 10/25/2020 5:40 AM EDT [facility] Sodium, Plasma 138 136 - 145 mmol/L 10/25/2020 5:40 AM EDT [facility] Potassium, Plasma 3.8 3.7 - 4.8 mmol/L 10/25/2020 5:40 AM EDT [facility] Chloride, Plasma 102 97 - 107 mmol/L 10/25/2020 5:40 AM EDT [facility] CO2, Plasma 27 22 - 29 mmol/L 10/25/2020 5:40 AM EDT [facility] Anion Gap 9 6 - 16 mmol/L 10/25/2020 5:40 AM EDT [facility] Total Calcium, Plasma 8.9 8.9 - 10.2 mg/dL 10/25/2020 5:40 AM EDT [facility] eGFR >60 >60 mL/min/1.7 3m*2 10/25/2020 5:40 AM EDT [facility] Comment:eGFR = estimated GFR ; eGFR units = mL/min/1.73 sq meters Chronic Kidney Disease is considered if eGFR <60 mL/min/1.73 sq meters Kidney failure is considered if eGFR is <15 mL/min/1.73 sq meters. eGFR assumes steady state plasma creatinine concentration; not applicable if renal function is rapidly changing or patient is on dialysis. eGFR, if AFR/AM >60 >60 mL/min/1.7 3m*2 10/25/2020 5:40 AM EDT [facility] Comment:eGFR = estimated GFR ; [...] blood specimen / Unknown Venipuncture / Unknown 10/25/2020 5:13 AM EDT 10/25/2020 5:17 AM EDT us Dipika Caputo MD LAB BLOOD ORDERABLES Final Re sult [facility] [address] [place] [address] * (ABNORMAL) Basic metabolic panel (10/24/2020 5:17 AM EDT) Glucose, Plasma 82 74 - 99 mg/dL 10/24/2020 7:18 AM EDT [facility] BUN, Plasma 11 7 - 21 mg/dL 10/24/2020 7:18 AM EDT [facility] Creatinine, Plasma 1.14(H) 0.60 - 1.10 mg/dL 10/24/2020 7:18 AM EDT [facility] BUN/Creatinine Ratio 10 10/24/2020 7:18 AM EDT [facility] Sodium, Plasma 142 136 - 145 mmol/L 10/24/2020 7:18 AM EDT [facility] Potassium, Plasma 4.0 3.7 - 4.8 mmol/L 10/24/2020 7:18 AM EDT [facility] Chloride, Plasma 105 97 - 107 mmol/L 10/24/2020 7:18 AM EDT [facility] CO2, Plasma 28 22 - 29 mmol/L 10/24/2020 7:18 AM EDT [facility] Anion Gap 9 6 - 16 mmol/L 10/24/2020 7:18 AM EDT [facility] Total Calcium, Plasma 8.1(L) 8.9 - 10.2 mg/dL 10/24/2020 7:18 AM EDT [facility] eGFR 55(L) >60 mL/min/1.7 3m*2 10/24/2020 7:18 AM T [facility] Comment:eGFR = estimated GFR ; eGFR units = mL/min/1.73 sq meters Chronic Kidney Disease is considered if eGFR <60 mL/min/1.73 sq meters Kidney failure is considered if eGFR is <15 mL/min/1.73 sq meters. eGFR assumes steady state plasma creatinine concentration; not applicable if renal function is rapidly changing or patient is on dialysis. eGFR, if AFR/AM >60 >60 mL/min/1.7 3m*2 10/24/2020 7:18 AM T [facility] Comment:eGFR = estimated GFR ; eGFR units = mL/min/1.73 sq meters Chronic Kidney Disease is considered if eGFR <60 mL/min/1.73 sq meters Kidney failure is considered if eGFR is <15 mL/min/1.73 sq meters. eGFR assumes steady state plasma creatinine concentration; not applicable if renal function is rapidly changing or patient is on dialysis. Blood Venous blood specimen / Unknown 10/24/2020 5:17 AM EDT 10/24/2020 6:40 AM EDT Dipika Caputo MD LAB BLOOD ORDERABLES Final Re sult Performing Organization Address City/[facility]/ZIP Co de Phone Number [facility] [address] [place] [address] * Magnesium (10/24/2020 5:17 AM EDT) Magnesium, Plasma 2.1 1.9 - 2.4 mg/dL 10/24/2020 7:18 AM EDT [facility] Blood Venous blood specimen / Unknown 10/24/2020 5:17 AM EDT 10/24/2020 6:40 AM EDT Dipika Caputo MD LAB BLOOD ORDERABLES Final Re sult Performing Organization Address [facility] Co de Phone Number [facility] [address] [place] [address] * (ABNORMAL) Magnesium (10/23/2020 4:34 AM EDT) Magnesium, Plasma 1.8(L) 1.9 - 2.4 mg/dL 10/23/2020 4:34 AM EDT [facility] Blood Venous blood specimen / Unknown 10/23/2020 3:58 AM EDT Walt Levy MD LAB BLOOD ORDERABLES Final R esult Performing Organization Address City/[facility] Co de Phone Number [facility] [address] [place] [address] * (ABNORMAL) Comprehensive metabolic panel (10/23/2020 4:34 AM EDT) Glucose, Plasma 79 74 - 99 mg/dL 10/23/2020 4:34 AM EDT [facility] BUN, Plasma 7 7 - 21 mg/dL 10/23/2020 4:34 AM EDT [facility] Creatinine, Plasma 0.63 0.60 - 1.10 mg/dL 10/23/2020 4:34 AM EDT [facility] BUN/Creatinine Ratio 11 10/23/2020 4:34 AM EDT [facility] Sodium, Plasma 140 136 - 145 mmol/L 10/23[facility]2020 [facility] Potassium, Plasma 3.7 3.7 - 4.8 mmol/L 10/23/2020 4:[facility] Chloride, Plasma 105 97 - 107 mmol/L 10/23/2020 4:[facility] CO2, Plasma 24 22 - 29 mmol/L 10/23/2020 4:34 AM EDT [facility] Anion Gap 11 6 - 16 mmol/L 10/23/2020 4:34 AM EDT [facility] Total Calcium, Plasma 8.7(L) 8.9 - 10.2 mg/dL 10/23/2020 4:34 AM EDT [facility] Total Protein 5.8(L) 6.3 - 7.9 g/dL 10/23/2020 4:34 AM [facility] Albumin, Plasma 3.4(L) 3.5 - 5.2 g/dL 10/23/2020 4:34 AM [facility] AST, Plasma 12 11 - 32 U/L 10/23/2020 4[facility] ALT, Plasma 9 8 - 33 U/L 10/23/2020 4:[facility] Alkaline Phosphatase, Plasma 67 35 - 104 U/L 10/23/2020 4:[facility] Total Bilirubin, Plasma <0.2(L) 0.2 - 1.1 mg/dL 10/23/2020 4:34 [facility] eGFR >60 >60 mL/min/1.7 3m*2 10/23/2020 4:34 [facility] Comment:eGFR = estimated GFR ; eGFR units = mL/min/1.73 sq meters Chronic Kidney Disease is considered if eGFR <60 mL/min/1.73 sq meters Kidney failure is considered if eGFR is <15 mL/min/1.73 sq meters. eGFR assumes steady state plasma creatinine concentration; not applicable if renal function is rapidly changing or patient is on dialysis. eGFR, if AFR/AM >60 >60 mL/min/1.7 3m*2 10/23/2020 4:34 AM [facility] Comment:eGFR = estimated GFR ; eGFR units = mL/min/1.73 sq meters Chronic Kidney Disease is considered if eGFR <60 mL/min/1.73 sq meters Kidney failure is considered if eGFR is <15 mL/min/1.73 sq meters. eGFR assumes steady state plasma creatinine concentration; not applicable if renal function is rapidly changing or patient is on dialysis. Blood Venous blood specimen / Unknown 10/23/2020 3:58 AM EDT us Walt Levy MD LAB BLOOD ORDERABLES Final R esult Performing Organization Address City/State/[facility] Co de Phone Number [facility] [address] [place] [id number] * (ABNORMAL) CBC W/O Differential (10/23/2020 4:23 AM EDT) WBC Count 4.67 3.70 - 10.30 10*3/uL LAB HEMATOLOGY METHOD 10/23/2020 4:23 AM EDT [facility] RBC Count 3.71(L) 3.90 - 5.20 10*6/uL LAB HEMATOLOGY METHOD 10/23/2020 4:23 AM EDT [facility] HGB 10.8(L) 11.2 - 15.7 g/dL LAB HEMATOLOGY METHOD 10/23/2020 4:23 AM EDT [facility] HCT 32.6(L) 34.0 - 45.0 % LAB HEMATOLOGY METHOD 10/23/2020 4:23 AM EDT [facility] Platelet Count 199 155 - 369 10*3/uL LAB HEMATOLOGY METHOD 10/23/2020 4:23 AM EDT [facility] MCV 88 79 - 98 fL LAB HEMATOLOGY METHOD 10/23/2020 4:23 AM EDT [facility] MCH 29.1 26.0 - 32.0 pg LAB HEMATOLOGY METHOD 10/23/2020 4:23 AM EDT [facility] MCHC 33.1 30.7 - 35.5 g/dL LAB HEMATOLOGY METHOD 10/23/2020 4:23 AM EDT [facility] RDW 13.1 11.5 - 14.5 % LAB HEMATOLOGY METHOD 10/23/2020 4:23 AM EDT [facility] MPV 9.9 8.8 - 12.5 fL LAB HEMATOLOGY METHOD 10/23/2020 4:23 AM EDT [facility] nRBC 0.0 <=0.0 per 100 WBCs LAB HEMATOLOGY METHOD 10/23/2020 4:23 AM EDT [facility] Blood Venous blood specimen / Unknown 10/23/2020 3:59 AM EDT us Walt Leyv MD LAB BLOOD ORDERABLES Final R esult [facility] [address] [place] [address] * EGD NANDINI GÓMEZ; 10/22/2020 (10/22/2020 3:57 PM EDT) Anatomical Region Laterality Modality Endoscopy Narrative 11/07/2020 4:27 PM EDT Impression Overall Impression: The esophagus appeared normal. Healing Gastric antral ulcer seen at [facility]. Random gastric biopsies obtained. 1.5 cm crated duodenal ulcer seen at duodenal sweep. No active bleeding. Erythematous duodenal mucosa. Recommendation - Continue PPI BID - No NSAIDS - Please send stool H.Pylori antigen Indication Coffee ground emesis, Duodenal ulcer Medications No administrations occurring from 1529 to 1557 on 10/22/20 Staff Staff Role Nandini Gómez MD Proceduralist Kimi Vo, RN Endo Nurse Eric Zurita, CHANDNI Endo Nurse Vineet Handy MD- fellow Preprocedure A history and physical has been [...] Source Tests Collected by Time A : Gastric biopsies Tissue Stomach SURGICAL PATHOLOGY EXAM Nandini Gómez MD 10/22/2020 1550 Findings The esophagus appeared normal. Healing Gastric antral ulcer seen at [facility]. Random gastric biopsies obtained. 1.5 cm crated duodenal ulcer seen at duodenal sweep. No active bleeding. Erythematous duodenal mucosa. us Walt Levy MD GI PROCEDURE ORDERABLES Carolina macias Result * Surgical Pathology Exam (10/22/2020 3:50 PM EDT) Case Report Surgical Pathology ?Case: [id number] ? Authorizing Provider: ??Nandini Gómez MD ?Collected: ? 10/22/2020 1550 ? Ordering Location: ? [facility] ?Received: ?10/23/2020 0816 ? Pathologist: ? Adán Kam MD ? Specimen: ?Stomach, Gastric biopsies ? 10/25/2020 9:17 PM EDT [facility] Final Diagnosis STOMACH, BIOPSY: - FOCAL FEATURES OF HEALING EROSION - NO EVIDENCE OF HELICOBACTER-LI KE ORGANISMS ON ROUTINE STAIN 10/25/2020 9:17 PM EDT [facility] Clinical Information Diagnosis: R10.13 - Epigastric pain [ICD-10-CM] K26.9 - Duodenal ulcer [ICD-10-CM] K92.0 - Coffee ground emesis [ICD-10-CM] 10/25/2020 9:17 PM EDT [facility] Gross Description A. GASTRIC BIOPSIES The specimen is received in formalin labeled gastric biopsies , and consists of four yellow-das soft tissue fragments ranging from 0.3-0.8 cm in greatest dimension. Entirely submitted in cassette A1. Eboni Calderon MLT 10/25/2020 9:17 PM EDT [facility] Note: A resident was involved in the service. I attest I examined the relevant preparations for the specimens and confirmed the diagnosis or interpretation. 10/25/2020 9:17 PM EDT [facility] Tissue Stomach structure / Unknown 10/22/2020 3:50 PM EDT 10/23/2020 8:16 AM EDT Nandini Gómez MD LAB PATHOLOGY ORDERABLES Final Result Performing Organization Address City/[facility]/ZIP Co de Phone Number [facility] [address] [place] [address] * Phosphorus (10/22/2020 3:11 AM EDT) Phosphorus, Plasma 3.7 2.5 - 4.5 mg/dL 10/22/2020 4:33 AM EDT [facility] Blood Venous blood specimen / Unknown 10/22/2020 3:11 AM EDT 10/22/2020 4:07 AM EDT Sarahy NAJERA LAB BLOOD ORDERABLES Final Res ult [facility] [address] [place] [address] * Magnesium (10/22/2020 3:11 AM EDT) Magnesium, Plasma 2.3 1.9 - 2.4 mg/dL 10/22/2020 4:33 AM EDT [facility] Blood Venous blood specimen / Unknown 10/22/2020 3:11 AM EDT 10/22/2020 4:07 AM EDT us Sarahy NAJERA LAB BLOOD ORDERABLES Final Res ult [facility] [address] [place] [address] * (ABNORMAL) Comprehensive metabolic panel (10/22/2020 3:11 AM EDT) Glucose, Plasma 79 74 - 99 mg/dL 10/22/2020 4:33 AM EDT [facility] BUN, Plasma 11 7 - 21 mg/dL 10/22/2020 4:33 AM EDT [facility] Creatinine, Plasma 0.64 0.60 - 1.10 mg/dL 10/22/2020 4:33 AM EDT [facility] BUN/Creatinine Ratio 17 10/22/2020 4:33 AM EDT [facility] Sodium, Plasma 139 136 - 145 mmol/L 10/22/2020 4:33 AM EDT [facility] Potassium, Plasma 3.9 3.7 - 4.8 mmol/L 10/22/2020 4:33 AM EDT [facility] Chloride, Plasma 108(H) 97 - 107 mmol/L 10/22/2020 4:33 AM EDT [facility] CO2, Plasma 21(L) 22 - 29 mmol/L 10/22/2020 4:33 AM EDT [facility] Anion Gap 10 6 - 16 mmol/L 10/22/2020 4:33 AM EDT [facility] Total Calcium, Plasma 8.3(L) 8.9 - 10.2 mg/dL 10/22/2020 4:33 AM EDT [facility] Total Protein 5.4(L) 6.3 - 7.9 g/dL 10/22/2020 4:33 AM EDT [facility] Albumin, Plasma 3.2(L) 3.5 - 5.2 g/dL 10/22/2020 4:33 AM EDT [facility] AST, Plasma 10(L) 11 - 32 U/L 10/22/2020 4:33 AM EDT [facility] ALT, Plasma 9 8 - 33 U/L 10/22/2020 4:33 AM EDT [facility] Alkaline Phosphatase, Plasma 66 35 - 104 U/L 10/22/2020 4:33 AM EDT [facility] Total Bilirubin, Plasma <0.2(L) 0.2 - 1.1 mg/dL 10/22/2020 4:33 AM EDT [facility] eGFR >60 >60 mL/min/1.7 3m*2 10/22/2020 4:33 AM EDT [facility] Comment:eGFR = estimated GFR ; eGFR units = mL/min/1.73 sq meters Chronic Kidney Disease is considered if eGFR <60 mL/min/1.73 sq meters Kidney failure is considered if eGFR is <15 mL/min/1.73 sq meters. eGFR assumes steady state plasma creatinine concentration; not applicable if renal function is rapidly changing or patient is on dialysis. eGFR, if AFR/AM >60 >60 mL/min/1.7 3m*2 10/22/2020 4:33 AM EDT [facility] Comment:eGFR = estimated GFR ; eGFR units = mL/min/1.73 sq meters Chronic Kidney Disease is considered if eGFR <60 mL/min/1.73 sq meters Kidney failure is considered if eGFR is <15 mL/min/1.73 sq meters. eGFR assumes steady state plasma creatinine concentration; not applicable if renal function is rapidly changing or patient is on dialysis. Blood Venous blood specimen / Unknown 10/22/2020 3:11 AM EDT 10/22/2020 4:07 AM EDT us Sarahy NAJERA LAB BLOOD ORDERABLES Final Res ult [facility] [address] [place] [id number] * (ABNORMAL) CBC (10/22/2020 3:11 AM EDT) WBC Count 5.44 3.70 - 10.30 10*3/uL LAB HEMATOLOGY METHOD 10/22/2020 4:11 AM EDT [facility] RBC Count 3.76(L) 3.90 - 5.20 10*6/uL LAB HEMATOLOGY METHOD 10/22/2020 4:11 AM EDT [facility] HGB 11.0(L) 11.2 - 15.7 g/dL LAB HEMATOLOGY METHOD 10/22/2020 4:11 AM EDT [facility] HCT 33.7(L) 34.0 - 45.0 % LAB HEMATOLOGY METHOD 10/22/2020 4:11 AM EDT [facility] Platelet Count 175 155 - 369 10*3/uL LAB HEMATOLOGY METHOD 10/22/2020 4:11 AM EDT [facility] MCV 90 79 - 98 fL LAB HEMATOLOGY METHOD 10/22/2020 4:11 AM EDT [facility] MCH 29.3 26.0 - 32.0 pg LAB HEMATOLOGY METHOD 10/22/2020 4:11 AM EDT [facility] MCHC 32.6 30.7 - 35.5 g/dL LAB HEMATOLOGY METHOD 10/22/2020 4:11 AM EDT [facility] RDW 13.4 11.5 - 14.5 % LAB HEMATOLOGY METHOD 10/22/2020 4:11 AM EDT [facility] MPV 10.0 8.8 - 12.5 fL LAB HEMATOLOGY METHOD 10/22/2020 4:11 AM EDT [facility] nRBC 0.0 <=0.0 per 100 WBCs LAB HEMATOLOGY METHOD 10/22/2020 4:11 AM EDT [facility] Blood Venous blood specimen / Unknown 10/22/2020 3:11 AM EDT 10/22/2020 4:07 AM EDT us Sarahy NAJERA LAB BLOOD ORDERABLES Final Res ult [facility] [address] [place] [address] * Acute Hepatitis Panel (10/21/2020 9:03 PM EDT) Hepatitis B Surf Antigen Negative Negative 10/21/2020 11:04 PM EDT [facility] Hepatitis C Antibody Negative Negative 10/21/2020 11:04 PM EDT [facility] Hepatitis A Antibody IgM Negative Negative 10/21/2020 11:04 PM EDT [facility] Hepatitis B Core Antibody IgM Negative Negative 10/21/2020 11:04 PM EDT [facility] Blood Venous blood specimen / Unknown Venipuncture / Unknown 10/21/2020 9:03 PM EDT 10/21/2020 9:26 PM EDT [employer] LAB BLOOD ORDERABLES Final Res ult Performing Organization Address [facility] Co de Phone Number [facility] [address] [place] [address] * C-Reactive Protein, Plasma (Use only for Muscle/Bone/Joint Infections) (10/21/2020 9:03 PM EDT) [facility] CRP, Plasma 3.0 <=8.0 mg/L 10/21/2020 9:53 PM EDT [facility] Blood Venous blood specimen / Unknown Venipuncture / Unknown 10/21/2020 9:03 PM EDT 10/21/2020 9:26 PM EDT [facility] - 10/21/2020 9:53 PM EDT This CRP test is appropriate for assessment of infection, systemic inflammation and/or tissue injury. To assess cardiovascular disease risk order high sensitivity CRP (CRPH). [employer] [facility] BLOOD ORDERABLES Final Res ult Performing Organization Address [facility] de Phone Number [facility] [address] [place] [address] * SARS CoV-2/COVID-19 by PCR (10/21/2020 9:03 PM EDT) [facility] SARS CoV-2/COVID-1 9 RNA PCR Result Not Detected Not Detected 10/22/2020 6:59 AM EDT [facility] Swab Nasopharyngeal structure / Unknown Non-blood Collection / Unknown 10/21/2020 9:03 PM EDT 10/22/2020 3:25 AM EDT [facility] - 10/22/2020 6:59 AM EDT This assay is for in vitro diagnostic use under FDA emergency use authorization only. Negative results do not preclude infection with the SARS CoV-2 virus and should not be the sole basis of a patient treatment/management or public health decision. Follow up testing should be performed according to the current CDC recommendations. This test was performed using the TaqPath COVID-19 assay, an IV-YOU-haimv method. The limit of detection (LoD) for this assay is 250 copies/mL. Use of the TaqPath COVID-19 assay in an asymptomatic screening population is intended to be used as part of an infection control plan that [...] clinical signs and symptoms consistent with COVID-19. Sarahy NAJERA LAB MICROBIOLOGY - GENERAL ORD ERABLES Final Result [facility] [address] [place] [address] * CT Abdomen Pelvis w IV Contrast (10/21/2020 6:50 PM EDT) Anatomical Region Laterality Modality Abdomen, Pelvis Computed Tomogra phy Impressions 10/21/2020 9:07 PM EDT Unremarkable examination of the abdomen and pelvis. ATTENDING COMMENT: There appears to be minimal amount of stranding adjacent to the first portion of the duodenum with minimal wall thickening of the duodenum. There appears to be a tiny outpouching within the wall of the first portion of the duodenum which in the correct clinical setting could represent a small duodenal ulcer. Correlation with patient's clinical history is recommended. Findings could be further evaluated with endoscopy if clinically indicated. CRITICAL RESULT: ?? No. COMMUNICATION: Changes this report were discussed with Veda Langley of the emergency room service via telephone at 2100 on 10/21/2020. Dictated by James Cheung on 10/21/2020 7:08 PM By electronically signing this report, I, the attending physician, attest that I have personally reviewed the images/data for the above examination(s) and agree with the final edited report. Signed by Abigail Abbott on ??10/21/2020 9:07 PM Narrative 10/21/2020 9:07 PM EDT Exam/Procedure: CT ABDOMEN PELVIS W IV CONTRAST ordered by BENJAMIN BRITT, [id number] CLINICAL INDICATION: Nausea/vomiting TECHNIQUE: Imaging of the abdomen and pelvis was performed, from lung bases through pubic symphysis, using spiral technique, following administration of IV contrast, Omnipaque 300, 100 mL. Delayed (excretory phase) images were performed through the kidneys. Reformatted images in the coronal and sagittal planes were generated from the axial data set to facilitate diagnostic accuracy. Total DLP (Dose-Length Product): 978.36 mGy.cm. Please note: The reported value represents the total of one or more individual components during the CT acquisition on this date and at this time, and as such, the same value may appear in more than one CT report depending on the interpreting/reporting physicians. COMPARISON: CT abdomen and pelvis April 16, 2016 FINDINGS: Lung Bases: Bibasilar atelectasis. Liver/Gallbladder/Biliary system: The liver demonstrates homogeneous [...] pelvis. Pelvis: The pelvic viscera are unremarkable. Retroverted uterus. Body Wall: Normal. Stable 2 cm nodule in the right breast. Bones: No acute fracture. Procedure Note True, Abigail Godwin MD - 10/21/2020 Exam/Procedure: CT ABDOMEN PELVIS W IV CONTRAST ordered by BENJAMIN BRITT,[id number] CLINICAL INDICATION: Nausea/vomiting TECHNIQUE: Imaging of the abdomen and pelvis was performed, from lung bases throughpubic symphysis, using spiral technique, following administration of IVcontrast, Omnipaque 300, 100 mL. Delayed (excretory phase) images wereperformed through the kidneys. Reformatted images in the coronal andsagittal planes were generated from the axial data set to facilitatediagnostic accuracy. Total DLP (Dose-Length Product): 978.36 mGy.cm. Please note: The reportedvalue represents the total of one or more individual components during theCT acquisition on this date and at this time, and as such, the same valuemay appear in more than one CT report depending on theinterpreting/reporting physicians. COMPARISON: CT abdomen and pelvis April 16, 2016 FINDINGS: Lung Bases: Bibasilar atelectasis. Liver/Gallbladder/Biliary system: The liver demonstrates homogeneousenhancement. [...] pelvis. Pelvis: The pelvic viscera are unremarkable. Retroverted uterus. Body Wall: Normal. Stable 2 cm nodule in the right breast. Bones: No acute fracture. IMPRESSION: Unremarkable examination of the abdomen and pelvis. ATTENDING COMMENT: There appears to be minimal amount of stranding adjacent to the firstportion of the duodenum with minimal wall thickening of the duodenum.There appears to be a tiny outpouching within the wall of the firstportion of the duodenum which in the correct clinical setting couldrepresent a small duodenal ulcer. Correlation with patient's clinicalhistory is recommended. Findings could be further evaluated with endoscopyif clinically indicated. CRITICAL RESULT: No. COMMUNICATION: Changes this report were discussed with Veda Langley of the emergencyroom service via telephone at 2100 on 10/21/2020. Dictated by James Cheung on 10/21/2020 7:08 PM By electronically signing this report, I, the attending physician, gladis I have personally reviewed the images/data for the aboveexamination(s) and agree with the final edited report. Signed by Abigail Abbott on 10/21/2020 9:07 PM Benjamin Britt MD IMG CT PROCEDURES Final Result * hCG, serum, qualitative (10/21/2020 4:12 PM EDT) Test Negative Negative 10/21/2020 5:16 PM EDT [facility] Blood Venous blood specimen / Unknown Venipuncture / Unknown 10/21/2020 4:12 PM EDT 10/21/2020 4:21 PM EDT [facility]arrative [facility] - 10/21/2020 5:16 PM EDT Reference Range: Males and non- females: Negative. Benjamin Britt MD LAB BLOOD ORDERABLES Final Resu lt Performing Organization Address City/[facility] Co de Phone Number [facility] [address] [place] [address] * APTT (10/21/2020 4:12 PM EDT) aPTT 29 26 - 34 sec LAB COAGULATION METHOD 10/21/2020 5:03 PM EDT [facility] Blood Venous blood specimen / Unknown Venipuncture / Unknown 10/21/2020 4:12 PM EDT 10/21/2020 4:21 PM EDT Benjamin Britt MD LAB BLOOD ORDERABLES Final Resu lt Performing Organization Address City/[facility] de Phone Number [facility] [address] [place] [address] * (ABNORMAL) PT-INR (10/21/2020 4:12 PM EDT) Prothrombin Time 12.0(L) 12.2 - 14.2 sec LAB COAGULATION METHOD 10/21/2020 5:03 PM EDT [facility] INR 0.9 0.9 - 1.1 LAB COAGULATION METHOD 10/21/2020 5:03 PM EDT [facility] Blood Venous blood specimen / Unknown Venipuncture / Unknown 10/21/2020 4:12 PM EDT 10/21/2020 4:21 PM EDT [facility]arrative [facility] - 10/21/2020 5:03 PM EDT OPTIMAL INR RANGES FOR PATIENT ON ORAL ANTICOAGULANT THERAPY Prevention of venous thromboembolism ?INR 2.0 to 3.0 In patients with heart disease: Atrial fibrillation ?INR 2.0 to 3.0 Valvular heart disease ? INR 2.0 to 3.0 Tissue heart valves ?INR 2.0 to 3.0 Mechanical prosthetic valves ? INR 2.5 to 3.5 Prevention of recurrent NC ? INR 2.5 to 3.5 Benjamin Britt MD LAB BLOOD ORDERABLES Final Resu lt Performing Organization Address [facility] de Phone Number [facility] [address] [place] [address] * Lactic acid, venous (10/21/2020 4:12 PM EDT) Pathologist [facility] Lactate, Venous, Whole Blood 0.8 0.5 - 2.2 mmol/L LAB HEMATOLOGY METHOD 10/21/2020 4:22 PM EDT [facility] Blood Venous blood specimen / Unknown Venipuncture / Unknown 10/21/2020 4:12 PM EDT 10/21/2020 4:20 PM EDT Benjamin Britt MD LAB BLOOD ORDERABLES Final Resu lt Performing Organization Address [facility] de Phone Number [facility] [address] [place] [address] * CBC w/diff (10/21/2020 4:12 PM EDT) WBC Count 8.15 3.70 - 10.30 10*3/uL LAB HEMATOLOGY METHOD 10/21/2020 4:56 PM EDT [facility] RBC Count 4.02 3.90 - 5.20 10*6/uL LAB HEMATOLOGY METHOD 10/21/2020 4:56 PM EDT [facility] HGB 11.7 11.2 - 15.7 g/dL LAB HEMATOLOGY METHOD 10/21/2020 4:56 PM EDT [facility] HCT 35.4 34.0 - 45.0 % LAB HEMATOLOGY METHOD 10/21/2020 4:56 PM EDT [facility] Platelet Count 200 155 - 369 10*3/uL LAB HEMATOLOGY METHOD 10/21/2020 4:56 PM EDT [facility] MCV 88 79 - 98 fL LAB HEMATOLOGY METHOD 10/21/2020 4:56 PM EDT [facility] MCH 29.1 26.0 - 32.0 pg LAB HEMATOLOGY METHOD 10/21/2020 4:56 PM EDT [facility] MCHC 33.1 30.7 - 35.5 g/dL LAB HEMATOLOGY METHOD 10/21/2020 4:56 PM EDT [facility] RDW 13.2 11.5 - 14.5 % LAB HEMATOLOGY METHOD 10/21/2020 4:56 PM EDT [facility] MPV 10.2 8.8 - 12.5 fL LAB HEMATOLOGY METHOD 10/21/2020 4:56 PM EDT [facility] nRBC 0.0 <=0.0 per 100 WBCs LAB HEMATOLOGY METHOD 10/21/2020 4:56 PM EDT [facility] Differential Type Automated LAB HEMATOLOGY METHOD 10/21/2020 4:56 PM EDT [facility] Neutrophils % 58.0 % LAB HEMATOLOGY METHOD 10/21/2020 4:56 PM EDT [facility] Lymphocytes % 36.0 % LAB HEMATOLOGY METHOD 10/21/2020 4:56 PM EDT [facility] Monocytes % 5.0 % LAB HEMATOLOGY METHOD 10/21/2020 4:56 PM EDT [facility] Eosinophils % 0.0 % LAB HEMATOLOGY METHOD 10/21/2020 4:56 PM EDT [facility] Basophils % 1.0 % LAB HEMATOLOGY METHOD 10/21/2020 4:56 PM EDT [facility] Immature Granulocytes % 0.0 % LAB HEMATOLOGY METHOD 10/21/2020 4:56 PM EDT [facility] Neutrophils Absolute 4.66 1.60 - 6.10 10*3/uL LAB HEMATOLOGY METHOD 10/21/2020 4:56 PM EDT [facility] Lymphocytes Absolute 2.95 1.20 - 3.90 10*3/uL LAB HEMATOLOGY METHOD 10/21/2020 4:56 PM EDT [facility] Monocytes Absolute 0.44 0.30 - 0.90 10*3/uL LAB HEMATOLOGY METHOD 10/21/2020 4:56 PM EDT [facility] Eosinophils Absolute 0.00 0.00 - 0.50 10*3/uL LAB HEMATOLOGY METHOD 10/21/2020 4:56 PM EDT [facility] Basophils Absolute 0.07 0.00 - 0.10 10*3/uL LAB HEMATOLOGY METHOD 10/21/2020 4:56 PM EDT [facility] Immature Granulocytes Absolute 0.03 0.00 - 0.06 10*3/uL LAB HEMATOLOGY METHOD 10/21/2020 4:56 PM EDT [facility] Blood Venous blood specimen / Unknown Venipuncture / Unknown 10/21/2020 4:12 PM EDT 10/21/2020 4:21 PM EDT Narrative [facility] - 10/21/2020 4:56 PM EDT Therapeutic decision making should be based on absolute values, rather than percentages. us Benjamin Britt MD LAB BLOOD ORDERABLES Final Resu lt Performing Organization Address [facility] Co de Phone Number [facility] [address] [place] [address] * (ABNORMAL) Magnesium (10/21/2020 4:12 PM EDT) Magnesium, Plasma 1.8(L) 1.9 - 2.4 mg/dL 10/21/2020 5:16 PM EDT [facility] Blood Venous blood specimen / Unknown Venipuncture / Unknown 10/21/2020 4:12 PM EDT 10/21/2020 4:21 PM EDT us Benjamin Britt MD LAB BLOOD ORDERABLES Final Resu lt Performing Organization Address City/[facility] Co de Phone Number [facility] [address] [place] [address] * Lipase (10/21/2020 4:12 PM EDT) Lipase, Plasma 36 19 - 63 U/L 10/21/2020 5:16 PM EDT [facility] Blood Venous blood specimen / Unknown Venipuncture / Unknown 10/21/2020 4:12 PM EDT 10/21/2020 4:21 PM EDT us Benjamin Britt MD LAB BLOOD ORDERABLES Final Resu lt Performing Organization Address City/[facility] Co de Phone Number [facility] [address] [place] [address] * (ABNORMAL) CMP (10/21/2020 4:12 PM EDT) [facility] Glucose, Plasma 87 74 - 99 mg/dL 10/21/2020 5:16 PM EDT [facility] BUN, Plasma 16 7 - 21 mg/dL 10/21/2020 5:16 PM EDT [facility] Creatinine, Plasma 0.62 0.60 - 1.10 mg/dL 10/21/2020 5:16 PM EDT [facility] BUN/Creatinine Ratio 26 10/21/2020 5:16 PM EDT [facility] Sodium, Plasma 137 136 - 145 mmol/L 10/21/2020 5:16 PM EDT [facility] Potassium, Plasma 3.9 3.7 - 4.8 mmol/L 10/21/2020 5:16 PM EDT [facility] Chloride, Plasma 104 97 - 107 mmol/L 10/21/2020 5:16 PM EDT [facility] CO2, Plasma 20(L) 22 - 29 mmol/L 10/21/2020 5:16 PM EDT [facility] Anion Gap 13 6 - 16 mmol/L 10/21/2020 5:16 PM EDT [facility] Total Calcium, Plasma 9.1 8.9 - 10.2 mg/dL 10/21/2020 5:16 PM EDT [facility] Total Protein 6.5 6.3 - 7.9 g/dL 10/21/2020 5:16 PM EDT [facility] Albumin, Plasma 4.3 3.5 - 5.2 g/dL 10/21/2020 5:16 PM EDT [facility] AST, Plasma 10(L) 11 - 32 U/L 10/21/2020 5:16 PM EDT [facility] ALT, Plasma 15 8 - 33 U/L 10/21/2020 5:16 PM EDT [facility] Alkaline Phosphatase, Plasma 79 35 - 104 U/L 10/21/2020 5:16 PM EDT [facility] Total Bilirubin, Plasma <0.2(L) 0.2 - 1.1 mg/dL 10/21/2020 5:16 PM EDT [facility] eGFR >60 >60 mL/min/1.7 3m*2 10/21/2020 5:16 PM EDT [facility] Comment:eGFR = estimated GFR ; eGFR units = mL/min/1.73 sq meters Chronic Kidney Disease is considered if eGFR <60 mL/min/1.73 sq meters Kidney failure is considered if eGFR is <15 mL/min/1.73 sq meters. eGFR assumes steady state plasma creatinine concentration; not applicable if renal function is rapidly changing or patient is on dialysis. eGFR, if AFR/AM >60 >60 mL/min/1.7 3m*2 10/21/2020 5:16 PM EDT [facility] Comment:eGFR = estimated GFR ; eGFR units = mL/min/1.73 sq meters Chronic Kidney Disease is considered if eGFR <60 mL/min/1.73 sq meters Kidney failure is considered if eGFR is <15 mL/min/1.73 sq meters. eGFR assumes steady state plasma creatinine concentration; not applicable if renal function is rapidly changing or patient is on dialysis. Blood Venous blood specimen / Unknown Venipuncture / Unknown 10/21/2020 4:12 PM EDT 10/21/2020 4:21 PM EDT us Benjamin Britt MD LAB BLOOD ORDERABLES Final Resu lt [facility] [address] [place] [address] documented in this encounter Visit Diagnoses Diagnosis Acute on chronic pancreatitis (CMS/HCC)- Primary Epigastric pain Abdominal pain, epigastric Duodenal ulcer Coffee ground emesis Hematemesis Class 1 obesity in adult Bipolar depression (CMS/HCC) Bipolar I disorder, most recent episode (or current) depressed, unspecified Anxiety Anxiety state, unspecified Fibromyalgia Unspecified myalgia and myositis Tobacco abuse Tobacco use disorder Epigastric pain Abdominal pain, epigastric Duodenal ulcer Coffee ground emesis Hematemesis Severe protein-calorie malnutrition (CMS/HCC) Other severe protein-calorie malnutrition documented in this encounter Admitting Diagnoses Diagnosis Epigastric pain Abdominal pain, epigastric documented in this encounter Administered Medications Inactive Administered Medications - up to 3 most recent administrations Medication Order MAR Action Action Date Dose Rate Site acetaminophen (Tylenol) tablet 650 mg 650 mg, Oral, Every 6 hours scheduled, First dose on Thu10/22/20 at 1200, Until Discontinued, Routine Given 11/06/2020 8:50 AM EDT 650 mg Given 11/06/2020 1:57 AM EDT 650 mg Given 11/05/2020 8:31 PM EDT 650 mg amitriptyline (Elavil) tablet 5 mg 5 mg, Oral, Nightly, First dose on Thu10/27/20 at 2100, Until Discontinued, Routine Given 10/31/2020 9:19 PM EDT 5 mg Given 10/30/2020 8:30 PM EDT 5 mg Given 10/29/2020 9:00 PM EDT 5 mg amitriptyline (Elavil) tablet 5 mg 5 mg, Oral, Nightly, First dose on Thu11/02/20 at 2100, Until Discontinued, Routine Given 11/04/2020 8:41 PM EDT 5 mg Given 11/03/2020 9:18 PM EDT 5 mg Given 11/02/2020 8:48 PM EDT 5 mg bisacodyl (Dulcolax) suppository 10 mg 10 mg, Rectal, Once, 1 dose, On Thu10/26/20 at 1100, Routine Given 10/26/2020 11:49 AM EDT 10 mg calcium carbonate (Tums) chewable tablet 500 mg 500 mg, Oral, 2 times daily, First dose on Thu10/28/20 at 1030, Until Discontinued, Routine Given 11/05/2020 8:31 PM EDT 500 mg Given 11/05/2020 8:22 AM EDT 500 mg Given 11/04/2020 8:40 PM EDT 500 mg clotrimazole (Lotrimin) 1 % cream 1 application Topical, 2 times daily, First dose on Thu10/31/20 at 1245, Until Discontinued, Routine Given 11/05/2020 9:00 PM EDT 1 application. Given 11/05/2020 8:28 AM EDT 1 application. Given 11/04/2020 9:00 PM EDT 1 application. cyclobenzaprine (Flexeril) tablet 10 mg 10 mg, Oral, 3 times daily, First dose on Thu11/04/20 at 1600, Until Discontinued, Routine Given 11/05/2020 8:22 AM EDT 10 mg Given 11/04/2020 8:41 PM EDT 10 mg Given 11/04/2020 3:03 PM EDT 10 mg droperidol (Inapsine) injection 2.5 mg 2.5 mg, Intravenous, Once, 1 dose, On Thu10/21/20 at 1950, STAT Given 10/21/2020 7:50 PM EDT 2.5 mg enoxaparin (Lovenox) syringe 40 mg 40 mg, Subcutaneous, Daily, First dose on Thu10/21/20 at 2045, Until Discontinued, Routine Given 11/01/2020 8:06 AM EDT 40 mg Right Upper Abdomen Given 10/31/2020 8:04 AM EDT 40 mg Le ft Upper Abdomen Given 10/30/2020 9:03 AM EDT 40 mg Le ft Upper Abdomen gi cocktail oral solution 30 mL 30 mL, Oral, 4 times daily PRN, 4 doses, Starting on Thu10/21/20 at 2038, Until 11/03/20 at 1359, Routine, cramping, abdominal pain Given 10/23/2020 5:53 PM EDT 30 mL HYDROmorphone (Dilaudid) injection 0.25 mg 0.25 mg, Intravenous, Every 2 hour PRN, Starting on Thu10/22/20 at 0857, Until Thu10/23/20 at 0725, Routine, severe pain Given 10/23/2020 3:27 AM EDT 0.25 m g Given 10/22/2020 11:20 PM EDT 0.25 mg Given 10/22/2020 8:17 PM EDT 0.25 mg HYDROmorphone (Dilaudid) injection 0.25 mg 0.25 mg, Intravenous, Every 2 hour PRN, Starting on Thu10/23/20 at 0852, Until Thu10/23/20 at 1338, Routine, severe pain Given 10/23/2020 12:31 PM EDT 0.25 mg Given 10/23/2020 9:30 AM EDT 0.25 mg HYDROmorphone (Dilaudid) injection 0.25 mg 0.25 mg, Intravenous, Once, 1 dose, On Thu10/24/20 at 1115, Routine Given 10/24/2020 12:14 PM EDT 0.25 mg HYDROmorphone (Dilaudid) injection 0.25 mg 0.25 mg, Intravenous, Once, 1 dose, Starting on Thu10/24/20 at 1702, Until 10/24/20 at 2139, Routine, severe pain Given 10/24/2020 9:39 PM EDT 0.25 mg HYDROmorphone (Dilaudid) injection 0.25 mg 0.25 mg, Intravenous, Every 2 hour PRN, Starting on Annabel 10/25/20 at 1602, Until Annabel 10/25/20 at 1700, Routine, severe pain Given 10/25/2020 4:20 PM EDT 0.25 mg HYDROmorphone (Dilaudid) injection 0.25 mg 0.25 mg, Intravenous, Every 4 hours PRN, Starting on Annabel 10/25/20 at 1715, Until 10/27/20 at 1324, Routine, severe pain, use after oxycodone Given 10/27/2020 8:15 AM EDT 0.25 mg Given 10/27/2020 3:53 AM EDT 0.25 mg Given 10/26/2020 11:17 PM EDT 0.25 mg HYDROmorphone (Dilaudid) injection 0.25 mg 0.25 mg, Intravenous, Every 6 hours PRN, Starting on 10/27/20 at 1317, Until 10/30/20 at 1215, Routine, severe pain, use only after both oxycodone orders used Given 10/30/2020 2:19 AM EDT 0.25 m g Given 10/29/2020 7:42 PM EDT 0.25 mg Given 10/28/2020 8:16 PM EDT 0.25 mg HYDROmorphone (Dilaudid) injection 0.5 mg 0.5 mg, Intravenous, Once, 1 dose, On Thu10/21/20 at 1550, STAT Given 10/21/2020 4:24 PM EDT 0.5 mg HYDROmorphone (Dilaudid) injection 0.5 mg 0.5 mg, Intravenous, Once, 1 dose, On Thu10/21/20 at 1950, STAT Given 10/21/2020 7:50 PM EDT 0.5 mg HYDROmorphone (Dilaudid) injection 1 mg 1 mg, Intravenous, Once, 1 dose, On Thu10/21/20 at 1730, STAT Given 10/21/2020 5:30 PM EDT 1 mg iohexol (OMNIPaque) 300 MG/ML injection 100 mL 100 mL, Intravenous, Once in imaging, 1 dose, Starting on Thu10/21/20 at 1841, Until Thu10/21/20 at 1841, Routine, Imaging Protocol Orders Given 10/21/2020 6:41 PM EDT 100 mL iohexol (OMNIPaque) 300 MG/ML injection 100 mL 100 mL, Intravenous, Once in imaging, 1 dose, Starting on Thu10/28/20 at 1030, Until Thu10/28/20 at 1202, Routine, Imaging Protocol Orders Given 10/28/2020 12:02 PM EDT 100 mL iohexol (OMNIPaque) 9 MG/ML oral contrast 500 mL 500 mL, Oral, Once in imaging, 1 dose, Starting on Thu10/28/20 at 1030, Until Thu10/28/20 at 1202, Routine, Imaging Protocol Orders Given 10/28/2020 12:02 PM EDT 500 mL ketorolac (Toradol) injection 15 mg 15 mg, Intravenous, Every 6 hours PRN, Starting on Thu10/21/20 at 2125, Until Thu10/22/20 at 1133, Routine, severe pain Given 10/22/2020 8:20 AM EDT 15 mg Given 10/21/2020 11:24 PM EDT 15 mg lactated Ringer's bolus 500 mL 500 mL, Intravenous, Once, 1 dose, On Thu10/24/20 at 1015, Administer over 2 Hours, Routine New Bag 10/24/2020 10:15 AM EDT 500 mL 250 mL/hr lactated Ringer's bolus 500 mL 500 mL, Intravenous, Once, 1 dose, On Thu10/29/20 at 1145, Administer over 2 Hours, Routine New Bag 10/29/2020 11:30 AM EDT 500 mL 250 mL/hr lactated Ringer's bolus 500 mL 500 mL, Intravenous, Once, 1 dose, On Thu10/30/20 at 1245, Administer over 2 Hours, Routine New Bag 10/30/2020 12:45 PM EDT 500 mL 250 mL/hr lactated Ringer's infusion 1,000 mL 1,000 mL, Intravenous, Once, 1 dose, On Thu10/21/20 at 1550, STAT New Bag 10/21/2020 3:50 PM EDT 1,000 mL lactated Ringer's infusion 100 mL/hr, Intravenous, Continuous, Starting on Thu10/21/20 at 2045, Until Thu10/22/20 at 2320, Routine New Bag 10/22/2020 8:17 PM EDT 100 mL/hr 100 mL /hr Restarted 10/22/2020 3:40 PM EDT Continued by Anesthesia 10/22/2020 3:31 PM EDT 100 mL/hr lactated Ringer's infusion 100 mL/hr, Intravenous, Continuous, Starting on Thu10/22/20 at 1515, Until Thu10/24/20 at 0955, Routine New Bag 10/22/2020 3:00 PM EDT 100 mL/hr 100 mL/hr lactated Ringer's infusion 75 mL/hr, Intravenous, Continuous, Starting on Thu10/24/20 at 1015, Until Thu10/25/20 at 1400, Routine Rate/Dose Change 10/25/2020 11:20 AM EDT 75 mL/hr 75 mL/hr New Bag 10/25/2020 11:07 AM EDT 125 mL/hr 125 mL/hr New Bag 10/24/2020 10:15 AM EDT 125 mL/hr 125 mL/hr lactated Ringer's infusion 100 mL/hr, Intravenous, Continuous, Starting on Thu10/25/20 at 1430, Until Thu10/26/20 at 1042, Routine Rate/Dose Change 10/25/2020 2:30 PM EDT 100 mL/hr 100 mL/hr lactated Ringer's infusion 125 mL/hr, Intravenous, Continuous, Starting on Thu10/26/20 at 1100, Until Thu11/02/20 at 0726, Routine New Bag 10/30/2020 1:15 AM EDT 125 mL/hr 125 mL/hr New Bag 10/29/2020 5:49 PM EDT 125 mL/hr 125 mL/hr New Bag 10/29/2020 6:21 AM EDT 125 mL/hr 125 mL/hr lactated Ringer's infusion 100 mL/hr, Intravenous, Continuous, Starting on Thu11/02/20 at 0745, Until Thu11/03/20 at 0854, Routine New Bag 11/02/2020 7:45 AM EDT 100 mL/hr 100 mL /hr lactated Ringer's infusion 75 mL/hr, Intravenous, Continuous, Starting on Thu11/03/20 at 0915, Until Thu11/03/20 at 1008, Routine New Bag 11/03/2020 9:15 AM EDT 75 mL/hr 75 mL/ hr lactated Ringer's infusion 100 mL/hr, Intravenous, Continuous, Starting on Thu11/03/20 at 1030, Until Thu11/06/20 at 1625, Routine New Bag 11/03/2020 10:30 AM EDT 100 mL/hr 100 m L/hr lurasidone (Latuda) tablet 40 mg 40 mg, Oral, Nightly, First dose on Thu10/22/20 at 2100, Until Discontinued, Routine Given 10/29/2020 9:00 PM EDT 40 mg Given 10/28/2020 9:00 PM EDT 40 mg Given 10/27/2020 9:37 PM EDT 40 mg lurasidone (Latuda) tablet 40 mg 40 mg, Oral, Daily before dinner, First dose (after last modification) on Thu10/30/20 at 1730, Until Discontinued, Routine Given 11/05/2020 4:30 PM EDT 40 mg Given 11/04/2020 4:35 PM EDT 40 mg Given 11/03/2020 4:45 PM EDT 40 mg magnesium citrate 1.745 GM/30ML oral solution 17.2667 g 17.2667 g (296 mL), Oral, Once, 1 dose, On Thu10/26/20 at 1515, Routine Given 10/26/2020 3:14 PM EDT 17.2667 g magnesium sulfate in D5W IVPB 1 g 1 g, Intravenous, Once, 1 dose, On Thu11/05/20 at 0015, Routine New Bag 11/05/2020 12:44 AM EDT 1 g magnesium sulfate IVPB 2 g 2 g, Intravenous, Once, 1 dose, On Thu10/21/20 at 2145, Routine New Bag 10/21/2020 11:22 PM EDT 2 g 25 mL/hr magnesium sulfate IVPB 2 g 2 g, Intravenous, Once, 1 dose, On Thu10/23/20 at 0745, Routine New Bag 10/23/2020 9:29 AM EDT 2 g 25 mL/hr magnesium sulfate IVPB 2 g 2 g, Intravenous, Once, 1 dose, On Thu10/28/20 at 1045, Routine New Bag 10/28/2020 12:51 PM EDT 2 g 25 mL/hr magnesium sulfate IVPB 2 g 2 g, Intravenous, Once, 1 dose, On Thu11/02/20 at 0745, Routine New Bag 11/02/2020 8:14 AM EDT 2 g 25 mL/hr magnesium sulfate IVPB 2 g 2 g, Intravenous, Once, 1 dose, On Thu11/06/20 at 0845, Routine New Bag 11/06/2020 8:50 AM EDT 2 g 25 mL/hr melatonin tablet 6 mg 6 mg, Oral, Nightly PRN, Starting on Thu10/21/20 at 2040, Until Thu11/06/20 at 1625, Routine, sleep Given 11/05/2020 9:37 PM EDT 6 mg Given 11/04/2020 9:01 PM EDT 6 mg Given 11/03/2020 9:17 PM EDT 6 mg methocarbamol (Robaxin) tablet 500 mg 500 mg, Oral, ZZ 3 times daily RT, First dose on 10/22/20 at 1400, Until Discontinued, Routine Given 11/04/2020 8:26 AM EDT 500 mg Given 11/03/2020 9:19 PM EDT 500 mg Given 11/03/2020 2:45 PM EDT 500 mg multivitamin (Theragran-M) tablet 1 tablet 1 tablet, Oral, Daily, First dose on 10/27/20 at 1615, Until Discontinued, Routine Given 11/06/2020 8:50 AM EDT 1 tablet Given 11/05/2020 8:22 AM EDT 1 tablet Given 11/04/2020 8:27 AM EDT 1 tablet nicotine (Nicoderm CQ) 21 MG/24HR patch 1 patch 1 patch, Transdermal, Daily, 42 doses, First dose on 10/21/20 at 2045, Last dose on Thu12/01/20 at 0900, Routine Medication Applied 10/23/2020 9:29 AM EDT 1 patch Left Arm Medication Applied 10/21/2020 11:21 PM EDT 1 patch Left Arm nortriptyline (Pamelor) capsule 10 mg 10 mg, Oral, Nightly, First dose on Annabel 11/01/20 at 2100, Until Discontinued, Routine Given 11/01/2020 9:00 PM EDT 10 mg ondansetron (Zofran) injection 4 mg 4 mg, Intravenous, Once, 1 dose, On Thu10/21/20 at 1550, STAT Given 10/21/2020 4:24 PM EDT 4 mg ondansetron (Zofran) injection 4 mg 4 mg, Intravenous, Once, 1 dose, On Thu10/21/20 at 1730, STAT Given 10/21/2020 5:30 PM EDT 4 mg ondansetron (Zofran) injection 4 mg 4 mg, Intravenous, Every 6 hours PRN, Starting on Thu10/21/20 at 2040, Until Thu10/22/20 at 1133, Routine, nausea, vomiting Given 10/22/2020 8:20 AM EDT 4 mg Given 10/21/2020 11:22 PM EDT 4 mg ondansetron (Zofran) injection 8 mg 8 mg, Intravenous, 3 times daily with meals, First dose (after last modification) on Thu10/22/20 at 1230, Until Discontinued, Routine Given 10/23/2020 12:31 PM EDT 8 mg Given 10/23/2020 9:30 AM EDT 8 mg Given 10/22/2020 6:07 PM EDT 8 mg ondansetron ODT (Zofran-ODT) disintegrating tablet 8 mg 8 mg, Oral, 3 times daily with meals, First dose on Thu10/23/20 at 1400, Until Discontinued, Routine Given 11/06/2020 11:42 AM EDT 8 mg Given 11/06/2020 8:50 AM EDT 8 mg Given 11/05/2020 4:30 PM EDT 8 mg oxyCODONE (Roxicodone) immediate release tablet 10 mg 10 mg, Oral, Every 6 hours, First dose (after last modification) on Thu10/28/20 at 1600, Until Discontinued, Routine Given 11/02/2020 3:15 AM EDT 10 mg Given 11/01/2020 10:00 PM EDT 10 mg Given 11/01/2020 4:37 PM EDT 10 mg oxyCODONE (Roxicodone) immediate release tablet 10 mg 10 mg, Oral, Every 6 hours, First dose (after last modification) on Thu11/02/20 at 1600, Until Discontinued, Routine Given 11/05/2020 6:19 PM EDT 10 mg Given 11/05/2020 12:13 PM EDT 10 mg Given 11/05/2020 3:14 AM EDT 10 mg oxyCODONE (Roxicodone) immediate release tablet 5 mg 5 mg, Oral, Every 6 hours PRN, Starting on Thu10/21/20 at 2039, Until Thu10/23/20 at 1338, Routine, moderate pain, severe pain Given 10/23/2020 9:30 AM EDT 5 mg Given 10/23/2020 4:35 AM EDT 5 mg Given 10/22/2020 6:29 PM EDT 5 mg oxyCODONE (Roxicodone) immediate release tablet 5 mg 5 mg, Oral, Every 4 hours PRN, Starting on Thu10/23/20 at 1337, Until Thu10/26/20 at 1111, Routine, moderate pain, severe pain Given 10/26/2020 7:41 AM EDT 5 mg Given 10/26/2020 3:22 AM EDT 5 mg Given 10/25/2020 9:08 PM EDT 5 mg oxyCODONE (Roxicodone) immediate release tablet 5 mg 5 mg, Oral, Once as needed, 1 dose, Starting on Thu10/23/20 at 1809, Until Thu10/24/20 at 1530, Routine, severe pain Given 10/24/2020 3:30 PM EDT 5 mg oxyCODONE (Roxicodone) immediate release tablet 5 mg 5 mg, Oral, Every 4 hours PRN, Starting on Thu10/26/20 at 1200, Until Thu10/27/20 at 1324, Routine, moderate pain, severe pain, OK to give both 5mg (for 10mg total) if patient is having severe pain Given 10/27/2020 12:38 PM EDT 5 mg Given 10/27/2020 4:54 AM EDT 5 mg Given 10/26/2020 12:06 PM EDT 5 mg oxyCODONE (Roxicodone) immediate release tablet 5 mg 5 mg, Oral, Every 4 hours PRN, Starting on Thu10/26/20 at 1200, Until Thu10/29/20 at 0715, Routine, moderate pain, severe pain, OK to give both 5mg (for 10mg total) if patient is having severe pain Given 10/28/2020 12:56 PM EDT 5 mg Given 10/28/2020 5:40 AM EDT 5 mg Given 10/28/2020 12:08 AM EDT 5 mg oxyCODONE (Roxicodone) immediate release tablet 5 mg 5 mg, Oral, Every 6 hours, First dose on 10/27/20 at 1600, Until Discontinued, Routine Given 10/28/2020 10:15 AM EDT 5 mg Given 10/28/2020 3:15 AM EDT 5 mg Given 10/27/2020 9:38 PM EDT 5 mg oxyCODONE (Roxicodone) immediate release tablet 5 mg 5 mg, Oral, Every 4 hours PRN, Starting on Thu10/29/20 at 0714, Until Thu11/02/20 at 0841, Routine, moderate pain, severe pain, OK to give 5mg PRN with scheduled one (for 15mg total) if patient is having severe pain Given 11/02/2020 6:53 AM EDT 5 mg Given 11/01/2020 8:50 PM EDT 5 mg Given 11/01/2020 4:36 PM EDT 5 mg oxyCODONE (Roxicodone) immediate release tablet 5 mg 5 mg, Oral, Every 6 hours, First dose (after last modification) on Thu11/02/20 at 1000, Until Discontinued, Routine Given 11/02/2020 10:17 AM EDT 5 mg oxyCODONE (Roxicodone) immediate release tablet 5 mg 5 mg, Oral, Every 6 hours PRN, Starting on Thu11/02/20 at 0845, Until 11/03/20 at 1008, Routine, moderate pain, severe pain, OK to give 5mg PRN with scheduled one (for 10mg total) if patient is having severe pain Given 11/02/2020 10:20 PM EDT 5 m g Given 11/02/2020 12:10 PM EDT 5 mg oxyCODONE (Roxicodone) immediate release tablet 5 mg 5 mg, Oral, Every 4 hours PRN, Starting on 11/03/20 at 1008, Until Thu11/06/20 at 1625, Routine, moderate pain, severe pain, OK to give with scheduled oxycodone if patient is having severe pain Given 11/06/2020 4:55 AM EDT 5 mg Given 11/05/2020 4:24 PM EDT 5 mg Given 11/05/2020 12:13 PM EDT 5 mg oxyCODONE (Roxicodone) immediate release tablet 5 mg 5 mg, Oral, Every 6 hours, First dose (after last modification) on Thu11/06/20 at 0000, Until Discontinued, Routine Given 11/06/2020 11:42 AM EDT 5 mg Given 11/06/2020 6:07 AM EDT 5 mg Given 11/06/2020 12:16 AM EDT 5 mg pancrelipase (Vjf-Wndy-Vbtu) (Creon) 6000-48247 units per capsule 2 capsule 2 capsule, Oral, 3 times daily with meals, First dose on Thu10/24/20 at 1230, Until Discontinued, Routine Given 11/06/2020 11:42 AM EDT 2 capsules Given 11/06/2020 8:50 AM EDT 2 capsules Given 11/05/2020 4:30 PM EDT 2 capsules pantoprazole (ProtoNix) EC tablet 40 mg 40 mg, Oral, 2 times daily before meals, First dose on Thu10/23/20 at 1700, Until Discontinued, Routine Given 11/06/2020 8:50 AM EDT 40 mg Given 11/05/2020 4:25 PM EDT 40 mg Given 11/05/2020 8:22 AM EDT 40 mg pantoprazole (ProtoNix) injection 40 mg 40 mg, Intravenous, Daily, First dose on Thu10/21/20 at 2115, Until Discontinued, Routine Given 10/22/2020 8:20 AM EDT 40 mg Given 10/21/2020 11:21 PM EDT 40 mg pantoprazole (ProtoNix) injection 40 mg 40 mg, Intravenous, 2 times daily, First dose (after last modification) on Thu10/22/20 at 2100, Until Discontinued, Routine Given 10/23/2020 9:29 AM EDT 40 mg Given 10/22/2020 8:17 PM EDT 40 mg polyethylene glycol (Miralax) packet 17 g 17 g, Oral, Daily, First dose on Thu10/23/20 at 0900, Until Discontinued, Routine Given 10/25/2020 8:13 AM EDT 17 g polyethylene glycol (Miralax) packet 17 g 17 g, Oral, 2 times daily, First dose (after last modification) on Annabel 10/25/20 at 2100, Until Discontinued, Routine Given 11/03/2020 9:16 PM EDT 17 g Given 11/02/2020 8:48 PM EDT 17 g Given 11/02/2020 8:13 AM EDT 17 g potassium chloride (Klor-Con) packet 40 mEq 40 mEq, Oral, Once, 1 dose, On Thu10/28/20 at 1030, Routine Given 10/28/2020 12:53 PM EDT 40 mEq pregabalin (Lyrica) capsule 150 mg 150 mg, Oral, ZZ 3 times daily RT, First dose on Thu10/22/20 at 1400, Until Discontinued, Routine Given 11/04/2020 8:26 AM EDT 150 mg Given 11/03/2020 9:18 PM EDT 150 mg Given 11/03/2020 2:44 PM EDT 150 mg pregabalin (Lyrica) capsule 200 mg 200 mg, Oral, 2 times daily, First dose (after last modification) on Thu11/04/20 at 2100, Until Discontinued, Routine Given 11/06/2020 8:50 AM EDT 200 mg Given 11/05/2020 8:31 PM EDT 200 mg Given 11/05/2020 8:21 AM EDT 200 mg prochlorperazine (Compazine) tablet 10 mg 10 mg, Oral, Every 6 hours PRN, Starting on Thu10/23/20 at 1338, Until Thu11/06/20 at 1625, Routine, nausea, vomiting Given 11/05/2020 8:21 AM EDT 10 mg Given 11/03/2020 9:18 PM EDT 10 mg Given 10/27/2020 3:54 AM EDT 10 mg promethazine (Phenergan) injection 12.5 mg 12.5 mg, Intravenous, Every 4 hours PRN, Starting on Thu10/21/20 at 2040, Until 10/27/20 at 1324, Routine, nausea, vomiting, Restricted to patients refractory to ondansetron. When rapid onset is required and oral is insufficient or NPO Given 10/24/2020 10:56 AM EDT 12.5 mg Given 10/23/2020 9:59 PM EDT 12.5 mg promethazine (Phenergan) tablet 12.5 mg 12.5 mg, Oral, Every 4 hours PRN, Starting on 10/27/20 at 1317, Until Thu11/06/20 at 1625, Routine, nausea, vomiting Given 11/05/2020 6:52 AM EDT 12.5 mg Given 11/05/2020 12:44 AM EDT 12.5 mg Given 11/02/2020 8:49 PM EDT 12.5 mg senna (Senokot) tablet 17.2 mg 17.2 mg, Oral, 2 times daily, First dose on Thu10/23/20 at 0900, Until Discontinued, Routine Given 11/06/2020 8:50 AM EDT 17.2 mg Given 11/05/2020 8:31 PM EDT 17.2 mg Given 11/05/2020 8:21 AM EDT 17.2 mg sodium chloride 0.9 % flush 10 mL 10 mL, Intravenous, Every 8 hours PRN, Starting on Thu10/21/20 at 2035, Until Thu11/06/20 at 1625, Routine, line care sucralfate (Carafate) 1 GM/10ML suspension 1 g 1 g, Oral, Every 6 hours scheduled, First dose on Thu10/23/20 at 1400, Until Discontinued, Routine Given 11/06/2020 8:50 AM EDT 1 g Given 11/06/2020 1:57 AM EDT 1 g Given 11/05/2020 8:31 PM EDT 1 g venlafaxine XR (Effoxor-XR) 24 hr capsule 150 mg 150 mg, Oral, Daily with breakfast, First dose on Thu10/23/20 at 0800, Until Discontinued, Routine Given 11/06/2020 8:50 AM EDT 150 mg Given 11/05/2020 8:21 AM EDT 150 mg Given 11/04/2020 8:26 AM EDT 150 mg documented in this encounter Active and Recently Administered Medications Times are shown in EDT. Scheduled Medication Order 11/04/2020 11/05/2020 11/06/2020 acetaminophen (Tylenol) tablet 650 mg 650 mg, Oral, Every 6 hours scheduled, First dose on Thu10/22/20 at 1200, Until Discontinued, Routine 0200 (Given - Provider: Sheryl Hendricks RN)0826 (Given - Provider: Afia Almeida LPN)1300 (Given - Provider: Afia Almeida LPN)204 (Given - Provider: Veronika Dave RN) 0250 (Given - Provider: Veronika Dave RN)0822 (Given - Provider: Amira Myers RN)1512 (Given - Provider: Amira Myers RN)203 (Given - Provider: Kenyatta Lucas LPN) 0157 (Given - Provider: Kenyatta Lucas LPN)0850 (Given - Provider: Amira Myers RN)1400 (Canceled Entry - Provider: Automatic Discharge Provider - Comment: Automatically canceled at discontinue of medication order) amitriptyline (Elavil) tablet 5 mg (CANCELED) 5 mg, Oral, Nightly, First dose on Thu11/02/20 at 2100, Until Discontinued, Routine 2040 (Given - Provider: Veronika Dave RN) calcium carbonate (Tums) chewable tablet 500 mg 500 mg, Oral, 2 times daily, First dose on Thu10/28/20 at 1030, Until Discontinued, Routine 0826 (Given - Provider: Afia Almeida LPN)204 (Given - Provider: Veronika Dave RN) 0822 (Given - Provider: Amira Myers RN)2030 (Given - Provider: Kenyatta Lucas LPN) 0900 (Not Given - Provider: Amira Myers RN - Reason: Patient/family refused) clotrimazole (Lotrimin) 1 % cream 1 application Topical, 2 times daily, First dose on Thu10/31/20 at 1245, Until Discontinued, Routine 0900 (Given - Provider: Aifa Almeida LPN)2100 (Given - Provider: Veronika Dave RN) 0828 (Given - Provider: Amira Myers RN)2100 (Given - Provider: Kenyatta Lucas LPN) 0900 (Not Given - Provider: Amira Myers RN - Reason: Patient/family refused) cyclobenzaprine (Flexeril) tablet 10 mg (CANCELED) 10 mg, Oral, 3 times daily, First dose on Thu11/04/20 at 1600, Until Discontinued, Routine 1503 (Given - Provider: Afia Almeida LPN)2041 (Given - Provider: Veronika Dave RN) 0822 (Given - Provider: Amira Myers RN) enoxaparin (Lovenox) syringe 40 mg 40 mg, Subcutaneous, Daily, First dose on Thu10/21/20 at 2045, Until Discontinued, Routine 0900 (Not Given - Provider: Afia Almeida LPN - Reason: Patient/family refused) 0900 (Not Given - Provider: Amira Myers RN - Reason: Patient/family refused) 0900 (Not Given - Provider: Amira Myers RN - Reason: Patient/family refused) lurasidone (Latuda) tablet 40 mg 40 mg, Oral, Daily before dinner, First dose (after last modification) on Thu10/30/20 at 1730, Until Discontinued, Routine 1635 (Given - Provider: Afia Almeida LPN) 1630 (Given - Provider: Amira Myers RN) magnesium sulfate in D5W IVPB 1 g (COMPLETED) 1 g, Intravenous, Once, 1 dose, On Thu11/05/20 at 0015, Routine 0044 (New Bag - Provider: Veronika Dave, CHANDNI) magnesium sulfate IVPB 2 g (COMPLETED) 2 g, Intravenous, Once, 1 dose, On Thu11/06/20 at 0845, Routine 0850 (New Bag - Provider: Amira Myers RN) methocarbamol (Robaxin) tablet 500 mg (CANCELED) 500 mg, Oral, ZZ 3 times daily RT, First dose on Thu10/22/20 at 1400, Until Discontinued, Routine 0826 (Given - Provider: Afia Almeida LPN) multivitamin (Theragran-M) tablet 1 tablet 1 tablet, Oral, Daily, First dose on Thu10/27/20 at 1615, Until Discontinued, Routine 0827 (Given - Provider: Afia Almeida LPN) 0822 (Given - Provider: Amira Myers RN) 0850 (Given - Provider: Amira Myers RN) ondansetron ODT (Zofran-ODT) disintegrating tablet 8 mg 8 mg, Oral, 3 times daily with meals, First dose on Thu10/23/20 at 1400, Until Discontinued, Routine 0826 (Given - Provider: Afia Almeida LPN)1258 (Given - Provider: Afia Almeida LPN)1636 (Given - Provider: Afia Almeida LPN) 0821 (Given - Provider: Amira Myers RN)1207 (Given - Provider: Amira Myers RN)1630 (Given - Provider: Amira Myers RN) 0850 (Given - Provider: Amira Myers RN)1142 (Given - Provider: Amira Myers RN) oxyCODONE (Roxicodone) immediate release tablet 10 mg (CANCELED) 10 mg, Oral, Every 6 hours, First dose (after last modification) on Thu11/02/20 at 1600, Until Discontinued, Routine 0436 (Given - Provider: Sheryl Hendricks RN)0940 (Given - Provider: Afia Almeida LPN)1504 (Given - Provider: Afai Almeida LPN)2101 (Given - Provider: Veronika Dave, CHANDNI) 0314 (Given - Provider: Veronika Dave, RN)1213 (Given - Provider: Amira Myers RN)1819 (Given - Provider: Amira Myers RN) oxyCODONE (Roxicodone) immediate release tablet 5 mg 5 mg, Oral, Every 6 hours, First dose (after last modification) on Thu11/06/20 at 0000, Until Discontinued, Routine 0016 (Given - Provider: Kenyatta Lucas LPN)0607 (Given - Provider: Kenyatta Lucas LPN)1142 (Given - Provider: Amira Myers, CHADNNI) pancrelipase (Xnc-Sexh-Pgzr) (Creon) 6000-50702 units per capsule 2 capsule 2 capsule, Oral, 3 times daily with meals, First dose on Thu10/24/20 at 1230, Until Discontinued, Routine 0826 (Given - Provider: Afia Almeida LPN)1258 (Given - Provider: Afia Almeida LPN)1636 (Given - Provider: Afia Almeida LPN) 0821 (Given - Provider: Amira Myers RN)1207 (Given - Provider: Amira Myers RN)1630 (Given - Provider: Amira Myers RN) 0850 (Given - Provider: Amira Myers RN)1142 (Given - Provider: Amira Myers RN) pantoprazole (ProtoNix) EC tablet 40 mg 40 mg, Oral, 2 times daily before meals, First dose on Thu10/23/20 at 1700, Until Discontinued, Routine 0827 (Given - Provider: Afia Almeida LPN)1635 (Given - Provider: Afia Almeida LPN) 0822 (Given - Provider: Amira Myers RN)1625 (Given - Provider: Amira Myers RN) 0850 (Given - Provider: Amira Myers RN) polyethylene glycol (Miralax) packet 17 g 17 g, Oral, 2 times daily, First dose (after last modification) on Annabel 10/25/20 at 2100, Until Discontinued, Routine 0900 (Not Given - Provider: Afia Almeida LPN - Reason: Patient/family refused)2100 (Not Given - Provider: Veronika Dave RN - Reason: Patient/family refused) 0900 (Not Given - Provider: Amira Myers RN - Reason: Patient/family refused)2100 (Not Given - Provider: Kenyatta Lucas LPN - Reason: Patient/family refused) 0900 (Not Given - Provider: Amira Myers RN - Reason: Patient/family refused) pregabalin (Lyrica) capsule 150 mg (CANCELED) 150 mg, Oral, ZZ 3 times daily RT, First dose on Thu10/22/20 at 1400, Until Discontinued, Routine 0826 (Given - Provider: Afia Almeida LPN) pregabalin (Lyrica) capsule 200 mg 200 mg, Oral, 2 times daily, First dose (after last modification) on Thu11/04/20 at 2100, Until Discontinued, Routine 204 (Given - Provider: Veronika Dave RN) 0821 (Given - Provider: Amira Myers RN)203 (Given - Provider: Kenyatta Lucas LPN) 0850 (Given - Provider: Amira Myers RN) senna (Senokot) tablet 17.2 mg 17.2 mg, Oral, 2 times daily, First dose on Thu10/23/20 at 0900, Until Discontinued, Routine 0826 (Given - Provider: Afia Almeida LPN)2039 (Given - Provider: Veronika Dave, CHANDNI) 0821 (Given - Provider: Amira Myers RN)2030 (Given - Provider: Kenyatta Lucas LPN) 0850 (Given - Provider: Amira Myers RN) sucralfate (Carafate) 1 GM/10ML suspension 1 g 1 g, Oral, Every 6 hours scheduled, First dose on Thu10/23/20 at 1400, Until Discontinued, Routine 0200 (Given - Provider: Sheryl Hendricks RN)0826 (Given - Provider: Afia Almeida LPN)1300 (Given - Provider: Afia Almeida LPN)204 (Given - Provider: Veronika Dave RN) 0250 (Given - Provider: Veronika Dave RN)0821 (Given - Provider: Amira Myers RN)1512 (Given - Provider: Amira Myers RN)2030 (Given - Provider: Kenyatta Lucas LPN) 0157 (Given - Provider: Kenyatta Lucas LPN)0850 (Given - Provider: Amira Myers RN)1400 (Canceled Entry - Provider: Automatic Discharge Provider - Comment: Automatically canceled at discontinue of medication order) venlafaxine XR (Effoxor-XR) 24 hr capsule 150 mg 150 mg, Oral, Daily with breakfast, First dose on Thu10/23/20 at 0800, Until Discontinued, Routine 08 (Given - Provider: Afia Almeida LPN) 0821 (Given - Provider: Amira Myers RN) 0850 (Given - Provider: Amira Myers RN) Continuous Medication Order 11/04/2020 11/05/2020 11/06/2020 lactated Ringer's infusion 100 mL/hr, Intravenous, Continuous, Starting on 11/03/20 at 1030, Until Thu11/06/20 at 1625, Routine PRN Medication Order 11/04/2020 11/05/2020 11/06/2020 melatonin tablet 6 mg 6 mg, Oral, Nightly PRN, Starting on 10/21/20 at 2040, Until Thu11/06/20 at 1625, Routine, sleep 2101 (Given - Provider: Veronika Dave RN) 2137 (Given - Provider: Kenyatta Lucas LPN) oxyCODONE (Roxicodone) immediate release tablet 5 mg 5 mg, Oral, Every 4 hours PRN, Starting on 11/03/20 at 1008, Until Thu11/06/20 at 1625, Routine, moderate pain, severe pain, OK to give with scheduled oxycodone if patient is having severe pain 0437 (Given - Provider: Sheryl Hendricks RN)0826 (Given - Provider: Afia Almeida LPN)1504 (Given - Provider: Afia Almeida LPN)2041 (Given - Provider: Veronika Dave RN) 0045 (Given - Provider: Veronika Dave RN)0445 (Given - Provider: Veronika Dave RN - Comment: scanned using iphone, unsure why it did not save)1213 (Given - Provider: Amira Myers RN)1624 (Given - Provider: Amira Myers RN) 0455 (Given - Provider: Kenyatta Lucas LPN) prochlorperazine (Compazine) tablet 10 mg 10 mg, Oral, Every 6 hours PRN, Starting on Thu10/23/20 at 1338, Until Thu11/06/20 at 1625, Routine, nausea, vomiting 0821 (Given - Provider: Amira Myers RN) promethazine (Phenergan) tablet 12.5 mg 12.5 mg, Oral, Every 4 hours PRN, Starting on 10/27/20 at 1317, Until Thu11/06/20 at 1625, Routine, nausea, vomiting 0044 (Given - Provider: Veronika Dave RN)0652 (Given - Provider: Veronika Dave RN) sodium chloride 0.9 % flush 10 mL(Linked Group 1) 10 mL, Intravenous, Every 8 hours PRN, Starting on 10/21/20 at 2035, Until Thu11/06/20 at 1625, Routine, line care Linked Groups Order Group 1: Insert peripheral IV (COMPLETED) Once, On Thu10/21/20 at 2036, For 1 occurrence And Saline lock IV (COMPLETED) Once, On Thu10/21/20 at 6, For 1 occurrence And sodium chloride 0.9 % flush 10 mLJump to med 10 mL, Intravenous, Every 8 hours PRN, Starting on Thu10/21/20 at 2034, Until Thu11/06/20 at 1625, Routine, line care documented in this encounter Additional Health Concerns Infection Onset Date Last Indicated Resolved Time Respiratory Rule-Out 11/03/2020 11/03/2020 021 6:52 PM EDT Rhinovirus 11/03/2020 11/03/2020 02/03/2021 8:03 PM EST Assessment Noted Time A fall risk assessment has been complete d for the patient 10/18/2020 3:02 PM EDT documented as of this encounter Care Teams Variety Performer Relationship Specialty Start Date End Date Elmo Escobar MD PCP - General 10/18/20 01/05/23 documented as of this encounter
--- OUTSIDE RECORDS SUMMARY | 2024-02-03 15:30 | XMS_ITS | Encounter Summary ---
Author Organization Healthcare Address [address] [place] [address] Care Team Providers Care Channel Process Supervisor Name Role Phone Elmo Escobar MD Primary Care Provider [phone] Reason for Visit * Reason Comments Abdominal Pain Encounter Details Date Type Department Care Team ([facility] st Contact Info) Description 10/18/2020 5:35 PM EDT - 10/18/2020 8:09 PM EDT Emergency [facility] [address] [place] [address] George Tang MD [address] [place] [id number] Epigastric pain (Primary Dx); Chronic pancreatitis, unspecified pancreatitis type (CMS/HCC) Discharge Disposition: Home or Self Care Social History Tobacco Use Types Packs/Day Years Used Date Smoking Tobacco: Every Day Smokeless Tobacco: Never Alcohol Use Standard Drinks/Week [...] have Coronavirus / COVID-19? No / Unsure 10/18/2020 5:20 PM EDT documented as of this encounter Last Filed Vital Signs Vital Sign Reading Time Taken Comments Blood Pressure 131/97 10/18/2020 7:31 PM EDT Pulse 82 10/18/2020 7:31 PM EDT Temperature 36.3 ??C (97.4 ??F) 10/18/2020 7:31 PM ED T Respiratory Rate 16 10/18/2020 7:31 PM EDT Oxygen Saturation 98% 10/18/2020 7:31 PM EDT Inhaled Oxygen Concentration - - Weight 90.7 kg (200 lb) 10/18/2020 5:20 PM EDT Height 165.1 cm (5' 5 ) 10/18/2020 5:20 PM EDT Body Mass Index 33.28 10/18/2020 5:20 PM EDT documented in this encounter Discharge Instructions * Discharge Instructions* Jenelle Zamarripa MD - 10/18/2020 7:44 PM EDT You were seen in the ED for abdominal pain and nausea. You have a known diagnosis of chronic pancreatitis. This may have been an exacerbation of that. You requested to go home after your symptoms improved with pain medication and nausea medication. Please follow up with your PCP or GI doctor as soon as possible to discuss this exacerbation as you likely still have an underlying problem that my cause these symptoms to return. If you develop fever, severe abdominal pain, uncontrolled nausea and vomiting, or other severe symptoms, please return to the ER. documented in this encounter Medications at Time of Discharge Latuda 40 MG tablet Take 40 mg by mouth 1 (one) time each day with breakfast. 10/14/2020 03/20/2022 methocarbamol (Robaxin) 500 MG tablet Take 500 mg by mouth 3 (three) times a day. 09/10/2020 11/06/2020 omeprazole (PriLOSEC) [address] capsule Take 1 capsule (40 mg total) by mouth 1 (one) time each day before breakfast. Do not crush or chew. 30 capsule 3 10/18/2020 11/06/2020 ondansetron (Zofran) 8 MG tablet Take 1 tablet (8 mg total) by mouth every 8 (eight) hours if needed for nausea or vomiting. 30 tablet 2 10/18/2020 11/20/2020 pregabalin (Lyrica) 200 MG capsule Take 200 mg by mouth 2 (two) times a day. 04/07/2020 11/20/2020 promethazine (Phenergan) 25 MG tablet Take 1 tablet (25 mg total) by mouth every 6 (six) hours if needed for nausea or vomiting for up to 7 days. 28 tablet 10/18/2020 11/06/2020 venlafaxine XR (Effoxor-XR) 150 MG 24 hr capsule Take 150 mg by mouth 1 (one) time each day. 07/07/2020 03/20/2022 documented as of this encounter Miscellaneous Notes * ED Provider Notes - Jenelle Zamarripa MD - 10/18/2020 5:17 PM EDT Images from the original note were not included. HPI Chief Complaint Patient presents with ??? Abdominal Pain Lila Mcnally is a 34 y.o. female with PMH of pancreatitis, fibromyalgia, cholecystectomy who presents to ED with c/o abdominal pain with nausea, vomiting, and diarrhea for two days. Pain radiates to left ribs and back. Patient was sent to ED from GI clinic. She endorses taking Zofran with no relief.Patient endorses about one pancreatitis flare up per week. She reports of ERCP in the spring indicating a stone. She denies fever, chills, dysuria. Patient has no other complaints at this time. Date/Time: 10/18/2020/5:31 PM Entered by Elpidio Stinson, acting as scribe for Dr. Tang. Attending Attestation: The documentation was recorded by Elpidio Stinson acting as scribe in my presence at the time of the encounter and accurately reflects the service I personally performed. Main ED note This 34 yo female presented to the ED with abdominal pain, nausea, vomiting, and diarrhea x2 days. She has a history of pancreatitis, fibromyalgia, and cholecystectomy. She describes the pain as a 9/10, radiating to her back. She was seen in the GI clinic for this problem earlier today. She has attempted taking zofran for the nausea and pain but it has not helped. She reports having and ERCP previously that showed a stone. She does not have a history of alcohol use. She is a smoker, no etoh use, denies illicit drugs. She is hoping to have relief from the pain and be able to go home. She does not want to be admitted for the problem. 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 by: Patient curb attendant used: No Jo Coma Scale Score: 15 [...] last month? No Travel History Travel since 09/17/20 No documented travel since 09/17/20 Relevant Domestic Travel History: no Immunization History reviewed VACCINE/DOSE DATE Flu 11/21/2019 Tetanus Pneumovax Shingles Allergies Allergen Reactions ??? Morphine And Related Other Burning ??? Tramadol Dizziness and Rash Review of Systems Review of Systems Constitutional: Negative for appetite change, chills, fatigue and fever. HENT: Negative for dental problem, rhinorrhea and sore throat. Eyes: Negative for discharge, redness and visual disturbance. Respiratory: Negative for cough and shortness of breath. Cardiovascular: Negative for chest pain, palpitations and leg swelling. Gastrointestinal: Positive for abdominal pain, diarrhea, nausea and vomiting. Negative for constipation. Genitourinary: Negative for difficulty urinating, dysuria, hematuria and menstrual problem. Musculoskeletal: Positive for back pain. Negative for arthralgias and myalgias. Skin: Negative for rash. Neurological: Negative for syncope and headaches. Hematological: Negative for adenopathy. Does not bruise/bleed easily. All other systems reviewed and are negative. Physical Exam ED Triage Vitals [10/18/20 1720] Temp Heart Rate Resp BP (!) 36.4 ??C (97.6 ??F) 101 18 (!) 166/101 SpO2 Temp src Heart Rate Source Patient Position 96 % -- -- -- BP Location FiO2 (%) -- -- Physical Exam Vitals and nursing note reviewed. Constitutional: General: She is not in acute distress. Appearance: Normal appearance. She is not ill-appearing. HENT: Head: Normocephalic and atraumatic. Right Ear: External ear normal. Left Ear: External ear normal. Nose: Nose normal. No congestion or rhinorrhea. Mouth/Throat: Mouth: Mucous membranes are moist. Pharynx: No oropharyngeal exudate or posterior oropharyngeal erythema. Eyes: Extraocular Movements: Extraocular movements intact. Conjunctiva/sclera: Conjunctivae normal. Pupils: Pupils are equal, round, and reactive to light. Cardiovascular: Rate and Rhythm: Normal rate and regular rhythm. Pulses: Normal pulses. Heart sounds: No murmur heard. Pulmonary: Effort: Pulmonary effort is normal. No respiratory distress. Breath sounds: Normal breath sounds. No wheezing or rhonchi. Chest: Chest wall: No tenderness. Abdominal: General: Abdomen is flat. There is no distension. Palpations: Abdomen is soft. Tenderness: There is abdominal tenderness in the epigastric area and left upper quadrant. There is no guarding or rebound. Comments: No peritoneal signs Musculoskeletal: General: No deformity or signs of injury. Normal range of motion. Cervical back: Normal range of motion and neck supple. No rigidity. Right lower leg: No edema. Left lower leg: No edema. Skin: General: Skin is warm and dry. Capillary Refill: Capillary refill takes less than 2 seconds. Coloration: Skin is not jaundiced or pale. Findings: No rash. Neurological: General: No focal deficit present. Mental Status: She is alert and oriented to person, place, and time. Psychiatric: Mood and Affect: Mood normal. Behavior: Behavior normal. Thought Content: Thought content normal. ED Course & MDM ED Course as of Nov 07 825 [facility] Oct 18, [id number] I assessed this patient and staffed with Dr. Tang. This 34-year-old female with a history of chronic pancreatitis presents to the emergency department with epigastric abdominal pain that radiates to her left side and back. She is also having nausea and has been unable to eat or drink today.In April she was told she had a pancreatic stone. This was surgically removed. She saw her clinic today and they told her she may need an MRCP as they are concerned for more stones. Differential diagnosis includes but is not limited to pancreatitis, viral gastroenteritis, SBP. Her lipase is normal.CBC shows mildly elevated white blood cells, CMP shows normal liver enzymes but elevated alkaline phosphatase. Physical exam makes me significantly less concerned for spontaneous bacterial peritonitis. The patient's initial dose of droperidol 2.5 mg IV did not help with her pain or nausea. I ordered an additional 0.25 mg of Dilaudid IV and 4 mg Zofran IV. I will reassess the patient in a little while to determine her level of pain and nausea. She is going to attempt to eat and drink. She would like to be able to go home if possible. 1939 The patient's symptoms are improving and she was able to tolerate PO. Followup and indicationsfor return were discussed with the patient and she indicated understanding. She will be discharged. Clinical Impressions as of Nov 07 825 Epigastric pain Chronic pancreatitis, unspecified pancreatitis type (CMS/HCC) [facility] Number of Diagnoses or Management Options Chronic pancreatitis, unspecified pancreatitis type (CMS/HCC) Epigastric pain Diagnosis management comments: See ED course for through MDM. Amount and/or Complexity of Data Reviewed Clinical lab tests: ordered and reviewed Discussion of test results with the performing providers: yes Discuss the patient with other providers: yes Jenelle Zamarripa MD Resident 11/07/2073 Cosigned by George Tang MD at 11/19/2020 7:08 AM EDT Associated attestation - George Tang MD - 11/19/2020 7:08 AM EDT I saw and evaluated the patient with the resident/fellow. I discussed the case with the resident/fellow and agree with the findings and plan as documented. * ED Triage Notes - Brooke Trotter, RN - 10/18/2020 5:17 PM EDT Patient c/o abdominal pain n/v/d x 2 days documented in this encounter Plan of Treatment Not on file documented as of this encounter Procedures Procedure Name Priority Date/Time Associated Diagnosis Comments ED PROTOCOL HIV 1/2 ANTIBODY/ANTIGEN SCREEN W/REFLEX TO HIV 1/2 ANTIBODY DIFFERENTIATION STAT 10/18/2020 5:48 PM EDT HIV 1/2 ANTIBODY/ANTIGEN SCREEN WITH REFLEX TO HIV I/II DIFFERENTIATION STAT 10/18/2020 5:48 PM EDT HEPATITIS C ANTIBODY - ED W/REFLEX TO HCV QUANT PCR STAT 10/18/2020 5:48 PM EDT CBC W/O DIFFERENTIAL STAT 10/18/2020 5:48 PM EDT MAGNESIUM, PLASMA STAT 10/18/2020 5:4 8 PM EDT LIPASE, PLASMA STAT 10/18/2020 5:48 PM EDT COMPREHENSIVE METABOLIC PANEL, PLASMA STAT 10/18/2020 5:48 PM EDT documented in this encounter Results * HIV 1 & 2 Antibody/Antigen Screen (10/18/2020 5:48 PM EDT) Pathologist [facility] HIV 1 & 2 Antibody/Anti gen Screen Nonreactive Nonreactive 10/18/2020 7:12 PM EDT [facility] Blood Venous blood specimen / Unknown Venipuncture / Unknown 10/18/2020 5:48 PM EDT 10/18/2020 6:11 PM EDT us George Tang MD LAB BLOOD ORDERABLES Final Result [facility] [address] [place] [address] * (ABNORMAL) CBC (10/18/2020 5:48 PM EDT) Pathologist [facility] WBC Count 11.29(H) 3.70 - 10.30 10*3/uL LAB HEMATOLOGY METHOD 10/18/2020 6:38 PM EDT [facility] RBC Count 5.34(H) 3.90 - 5.20 10*6/uL LAB HEMATOLOGY METHOD 10/18/2020 6:38 PM EDT [facility] HGB 15.5 11.2 - 15.7 g/dL LAB HEMATOLOGY METHOD 10/18/2020 6:38 PM EDT [facility] HCT 46.4(H) 34.0 - 45.0 % LAB HEMATOLOGY METHOD 10/18/2020 6:38 PM EDT [facility] Platelet Count 388(H) 155 - 369 10*3/uL LAB HEMATOLOGY METHOD 10/18/2020 6:38 PM EDT [facility] MCV 87 79 - 98 fL LAB HEMATOLOGY METHOD 10/18/2020 6:38 PM EDT [facility] MCH 29.0 26.0 - 32.0 pg LAB HEMATOLOGY METHOD 10/18/2020 6:38 PM EDT [facility] MCHC 33.4 30.7 - 35.5 g/dL LAB HEMATOLOGY METHOD 10/18/2020 6:38 PM EDT [facility] RDW 13.2 11.5 - 14.5 % LAB HEMATOLOGY METHOD 10/18/2020 6:38 PM EDT [facility] MPV 10.6 8.8 - 12.5 fL LAB HEMATOLOGY METHOD 10/18/2020 6:38 PM EDT [facility] nRBC 0.0 <=0.0 per 100 WBCs LAB HEMATOLOGY METHOD 10/18/2020 6:38 PM EDT [facility] Blood Venous blood specimen / Unknown Venipuncture / Unknown 10/18/2020 5:48 PM EDT 10/18/2020 6:20 PM EDT George Tang MD LAB BLOOD ORDERABLES Final Result [facility] [address] [place] [address] * Lipase (10/18/2020 5:48 PM EDT) [facility] Lipase, Plasma 44 19 - 63 U/L 10/18/2020 6:41 PM EDT [facility] Blood Venous blood specimen / Unknown Venipuncture / Unknown 10/18/2020 5:48 PM EDT 10/18/2020 6:11 PM EDT George Tang MD LAB BLOOD ORDERABLES Final Result Performing Organization Address City/[facility] Co de Phone Number [facility] [address] [place] [address] * Magnesium (10/18/2020 5:48 PM EDT) [facility] Magnesium, Plasma 2.2 1.9 - 2.4 mg/dL 10/18/2020 6:41 PM EDT [facility] Blood Venous blood specimen / Unknown Venipuncture / Unknown 10/18/2020 5:48 PM EDT 10/18/2020 6:11 PM EDT George Tang MD LAB BLOOD ORDERABLES Final Result Performing Organization Address City/[facility] Co de Phone Number [facility] [address] [place] [address] * [place] Hepatitis C Antibody (10/18/2020 5:48 PM EDT) [facility] Hepatitis C Antibody Negative Negative 10/18/2020 7:12 PM EDT [facility] Blood Venous blood specimen / Unknown Venipuncture / Unknown 10/18/2020 5:48 PM EDT 10/18/2020 6:11 PM EDT George Tang MD LAB BLOOD ORDERABLES Final Result [facility] [address] [place] [address] * (ABNORMAL) CMP (10/18/2020 5:48 PM EDT) Pathologist [facility] Glucose, Plasma 115(H) 74 - 99 mg/dL 10/18/2020 6:41 PM EDT [facility] BUN, Plasma 18 7 - 21 mg/dL 10/18/2020 6:41 PM EDT [facility] Creatinine, Plasma 0.69 0.60 - 1.10 mg/dL 10/18/2020 6:41 PM EDT [facility] BUN/Creatinine Ratio 10/18/2020 6:41 PM EDT [facility] Sodium, Plasma 136 136 - 145 mmol/L 10/18/2020 6:41 PM EDT [facility] Potassium, Plasma 4.2 3.7 - 4.8 mmol/L 10/18/2020 6:41 PM EDT [facility] Comment:Hemolyzed, result ma y be falsely increased. Chloride, Plasma 102 97 - 107 mmol/L 10/18/2020 6:41 PM EDT [facility] CO2, Plasma 17(L) 22 - 29 mmol/L 10/18/2020 6:41 PM EDT [facility] Anion Gap 17(H) 6 - 16 mmol/L 10/18/2020 6:41 PM EDT [facility] Total Calcium, Plasma 10.0 8.9 - 10.2 mg/dL 10/18/2020 6:41 PM EDT [facility] Total Protein 8.4(H) 6.3 - 7.9 g/dL 10/18/2020 6:41 PM EDT [facility] Albumin, Plasma 5.1 3.5 - 5.2 g/dL 10/18/2020 6:41 PM EDT [facility] AST, Plasma 23 11 - 32 U/L 10/18/2020 6:41 PM EDT [facility] Comment:Hemolyzed, result ma y be falsely increased. ALT, Plasma 20 8 - 33 U/L 10/18/2020 6:41 PM EDT [facility] Alkaline Phosphatase, Plasma 111(H) 35 - 104 U/L 10/18/2020 6:41 PM EDT [facility] Total Bilirubin, Plasma 0.3 0.2 - 1.1 mg/dL 10/18/2020 6:41 PM EDT [facility] eGFR >60 >60 mL/min/1.7 3m*2 10/18/2020 6:41 PM EDT [facility] Comment:eGFR = estimated GFR ; eGFR units = mL/min/1.73 sq meters Chronic Kidney Disease is considered if eGFR <60 mL/min/1.73 sq meters Kidney failure is considered if eGFR is <15 mL/min/1.73 sq meters. eGFR assumes steady state plasma creatinine concentration; not applicable if renal function is rapidly changing or patient is on dialysis. eGFR, if AFR/AM >60 >60 mL/min/1.7 3m*2 10/18/2020 6:41 PM EDT [facility] Comment:eGFR = estimated GFR ; eGFR units = mL/min/1.73 sq meters Chronic Kidney Disease is considered if eGFR <60 mL/min/1.73 sq meters Kidney failure is considered if eGFR is <15 mL/min/1.73 sq meters. eGFR assumes steady state plasma creatinine concentration; not applicable if renal function is rapidly changing or patient is on dialysis. Blood Venous blood specimen / Unknown Venipuncture / Unknown 10/18/2020 5:48 PM EDT 10/18/2020 6:11 PM EDT us George Tang MD LAB BLOOD ORDERABLES Final Result [facility] [address] [place] [address] documented in this encounter Visit Diagnoses Diagnosis Epigastric pain- Primary Abdominal pain, epigastric Chronic pancreatitis, unspecified pancreatitis type (CMS/HCC) documented in this encounter Administered Medications Inactive Administered Medications - up to 3 most recent administrations Medication Order MAR Action Action Date Dose Rate Site droperidol (Inapsine) injection 2.5 mg 2.5 mg, Intravenous, Once, 1 dose, On Annabel 10/18/20 at 1740, Routine Given 10/18/2020 5:40 PM EDT 2.5 mg HYDROmorphone (Dilaudid) injection 0.25 mg 0.25 mg, Intravenous, Once, 1 dose, On Annabel 10/18/20 at 1855, STAT Given 10/18/2020 6:55 PM EDT 0.25 mg lactated Ringer's infusion 1,000 mL 1,000 mL, Intravenous, Once, 1 dose, On Annabel 10/18/20 at 1740, STAT New Bag 10/18/2020 6:12 PM EDT 1,000 mL ondansetron (Zofran) injection 4 mg 4 mg, Intravenous, Once, 1 dose, On Annabel 10/18/20 at 1855, STAT Given 10/18/2020 6:55 PM EDT 4 mg documented in this encounter Active and Recently Administered Medications Times are shown in EDT. Scheduled Medication Order 10/16/2020 10/17/2020 10/18/2020 droperidol (Inapsine) injection 2.5 mg (COMPLETED) 2.5 mg, Intravenous, Once, 1 dose, On Annabel 10/18/20 at 1740, Routine 1740 (Given - Provid er: Chyna Castro) HYDROmorphone (Dilaudid) injection 0.25 mg (COMPLETED) 0.25 mg, Intravenous, Once, 1 dose, On Annabel 10/18/20 at 1855, STAT 1855 (Given - Provid er: Chyna Castro) lactated Ringer's infusion 1,000 mL (COMPLETED) 1,000 mL, Intravenous, Once, 1 dose, On Annabel 10/18/20 at 1740, STAT 1812 (New Bag - Prov ider: Chyna Castro)1999 (Stopped - Provider: Quincy Simental RN) ondansetron (Zofran) injection 4 mg (COMPLETED) 4 mg, Intravenous, Once, 1 dose, On Annabel 10/18/20 at 1855, STAT 1855 (Given - Provid er: Chyna Castro) documented in this encounter Additional Health Concerns Assessment Noted Time A fall risk assessment has been complete d for the patient 10/18/2020 3:02 PM EDT documented as of this encounter Care Teams Channel Process Supervisor Relationship Specialty Start Date End Date Elmo Escobar MD PCP - General 10/18/20 01/05/23 documented as of this encounter
--- OUTSIDE RECORDS SUMMARY | 2024-02-03 15:30 | XMS_ITS ---
Author Organization [facility] Address [address] [place] [address] Care Team Providers Care Assurance Auditor Name Role Phone QamarLisa mckeon Beatriz ORELLANA Primary Care Provider Transitional Care Management Status:Closed (Closed) Start date:04/17/2023 Enrollment date:04/21/2023 Enrollment reason:Identified using hospital discharge data End date:05/15/2023 Close reason:Patient graduated Overview This episode type is for outpatient care managers enrolling patients in the [facility] Transitional Care Management program. Continued Care and Services Coordination
--- OUTSIDE RECORDS SUMMARY | 2024-02-03 15:30 | XMS_ITS ---
Author Organization [facility] Address [address] [place] [address] Care Team Providers Care Meat Grinder Name Role Phone QamarLisa mckeon Beatriz ORELLANA Primary Care Provider [phone] ED Care Coordination Status:Closed (Closed) Start date:06/20/2022 Enrollment date:06/20/2022 Enrollment reason:Identified using hospital discharge data End date:07/18/2022 Close reason:Patient graduated Overview This episode type is for outpatient care managers enrolling patients in the ED Care Coordination program. Continued Care and Services Coordination
--- OUTSIDE RECORDS SUMMARY | 2024-02-03 15:30 | XMS_ITS ---
Author Organization [facility] Address [address] [place] [address] Care Team Providers Care Cable Tool Driller Name Role Phone QamarEvon mckeonlynn Henderson APRN Primary Care Provider Transitional Care Management Status:Closed (Closed) Start date:12/03/2023 Enrollment reason:Identified using hospital discharge data End date:01/02/2024 Close reason:Patient graduated Overview This episode type is for outpatient care managers enrolling patients in the CMS Transitional Care Management program. Continued Care and Services Coordination
--- OUTSIDE RECORDS SUMMARY | 2024-02-03 15:30 | XMS_ITS | Encounter Summary ---
Author Organization [facility] Address [address] [place] [id number] Care Team Providers Care Inoculator Name Role Phone Elmo Escobar MD Primary Care Provider [phone] Encounter Details Date Type Department Care Team (Late st Contact Info) Description 10/18/2020 Telephone [facility] [address] [place] [address] Hetal Redman, RN [facility] Social History Tobacco [...] have Coronavirus / COVID-19? No / Unsure 10/12/2020 9:25 AM EDT documented as of this encounter Miscellaneous Notes * Telephone Encounter - Hetal Redman - 10/18/2020 1:38 PM EDT Patient's mom called and said patient has had to cancel last appointment due to child care center administrator issues but needs to be seen sooner than Octo. I advised them I would reach out to providers and see what I could do but if pain and symptoms were severe they need to be seen in ER, she verbalized understanding. Claudio Sy had an opening today and ok'd to book patient in that spot. I called patient back to let them know and they verbalized understanding and said they would be here. documented in this encounter Plan of Treatment Not on file documented as of this encounter Visit Diagnoses Not on filedocumented in this encounter Additional Health Concerns Assessment Noted Time A fall risk assessment has been complete d for the patient 10/18/2020 3:02 PM EDT documented as of this encounter Care Teams Inoculator Relationship Specialty Start Date End Date Elmo Escobar MD PCP - General 10/18/20 01/05/23 documented as of this encounter
--- OUTSIDE RECORDS SUMMARY | 2024-02-03 15:30 | XMS_ITS | Encounter Summary ---
Author Organization [facility] Address [address] [place] [address] Care Team Providers Care Tsa Screener Name Role Phone Elmo Escobar MD Primary Care Provider [phone] Tiffanie Gonzalez STRUCTURAL ARCHITECT Unavailable UnavailRafiq Walker DO Primary Care Provider [phone] Pcp, No Primary Care Provider UnavailCitlali Maloney ASSOCIATE SPA DIRECTOR Primary Care Provider [phone] Dipika Lorenzana STRUCTURAL ARCHITECT Unavailable Unavaila ble Pcp, No Primary Care Provider UnavailLisa Perez ASSOCIATE SPA DIRECTOR Primary Care Provider [phone] Amira Solis STRUCTURAL ARCHITECT Unavailable Unavailable Cally Tilley STRUCTURAL ARCHITECT Unavailable Unavailable Reason for Referral * Consultation (Routine) - Closed Specialty Diagnoses / Procedures Referred By Contmary t Referred To Contact Gastroenterology Diagnoses Chronic recurrent pancreatitis (CMS/HCC) Elmo Escobar MD Phone: tel: fax: Referral ID Status Reason Start Date Expiration Date V isits Requested Visits Authorized [id number] Closed Specialty Services Required 08/28/2020 02/24/2021 1 1 Encounter Details Date Type Department Care Team (Latest Contact Info) Description 08/28/2020 [facility] [address] [place] [phone] Elmo Escobar MD [address] [place] [address] Chronic recurrent pancreatitis (CMS/HCC) (Primary Dx) Social History Tobacco Use Types Packs/Day Years Used Date Smoking Tobacco: Every Day Alcohol Use Standard Drinks/Week Comments Yes 0 (1 standard drink = 0.6 oz pure alcohol) Alcoholic Drinks/day: Minimum alcohol consumption Comments Unknown Sex and Gender Information Value Date Recorded Sex Assigned at Female 11/30/2020 9:14 AM EDT Legal Sex Female 8:12 PM EDT Gender Identity Female 11/30/2020 9:14 AM EDT Sexual Orientation Straight 11/30/2020 9: 14 AM EDT documented as of this encounter Plan of Treatment Scheduled Referrals Name Type Priority Associated Diagnoses Order Schedule Ambulatory referral to Gastroenterology Outpatient Referral Routine Chronic recurrent pancreatitis (CMS/HCC) Ordered: 08/28/2020 documented as of this encounter Visit Diagnoses Diagnosis Chronic recurrent pancreatitis (CMS/HCC)- Primary documented in this encounter Additional Health Concerns Infection Onset Date Last Indicated Resolved Time Respiratory Rule-Out 11/03/2020 11/03/2020 021 6:52 PM EDT Rhinovirus 11/03/2020 11/03/2020 02/03/2021 8:03 PM EST COVID-19 Rule-Out 02/03/2021 02/03/2021 02/03/2021 8:01 PM EST COVID-19 Rule-Out 05/22/2022 05/22/2022 05/22/2022 6:25 PM [...] Rule-Out 01/31/2024 01/31/2024 01/31/2024 6:02 PM EST documented as of this encounter Care Teams Tsa Screener Relationship Specialty Start Date End Date Elmo Escobar MD PCP - General 10/18/20 01/05/23 Rafiq Song DO [address] [place] [address] PCP - General 01/06/23 03/16/23 Pcp, [facility] [address] [place] [address] PCP - General Family Medicine 03/18/23 03/25/23 Citlali Marquez [place] [address] PCP - General Family Medicine 03/26/23 10/19/[place] [address] PCP - General Family Medicine 10/22/23 10/22/23 Lisa Foote, ASSOCIATE SPA DIRECTOR [address] [place] [phone] PCP - General 10/23/23 Tiffanie Gonzalez, NAIN [employer] [address] Care Coordination Nurse 06/20/2207/18 Dipika Lorenzana, STRUCTURAL ARCHITECT VALUE-BASED TRANSFORMATION PROGRAM TCM Nurse 04/17/23 05/15/23 Amira Solis, STRUCTURAL ARCHITECT [employer] [address] TCM Nurse 12/03/23 12/03/23 Cally Tilley, STRUCTURAL ARCHITECT [employer] [address] TCM Nurse 12/03/23 01/01/24 documented as of this encounter
--- OUTSIDE RECORDS SUMMARY | 2024-02-03 15:30 | XMS_ITS ---
Author Organization [facility] Address [address] [place] [address] Care Team Providers Care Hot Sealing Machine Operator Name Role Phone QamarEvon mckeonlynn Henderson APRN Primary Care Provider [phone] Transitional Care Management Status:Closed (Closed) Start date:12/03/2023 Enrollment reason:Identified using hospital discharge data End date:12/03/2023 Close reason:Enrollment Error Overview This episode type is for outpatient care managers enrolling patients in the CMS Transitional Care Management program. Continued Care and Services Coordination
--- OUTSIDE RECORDS SUMMARY | 2024-02-03 15:30 | XMS_ITS | Encounter Summary ---
Author Organization Healthcare Address [address] [place] [address] Care Team Providers Care Battery Plate Remover Name Role Phone Elmo Escobar MD Primary Care Provider [phone] Reason for Visit * Reason Comments Pancreatitis Abdominal Pain x2 days Vomiting Diarrhea * Consultation (Routine) - Closed Specialty Diagnoses / Procedures Referred By Susy burks Referred To Contact Gastroenterology Diagnoses Chronic recurrent pancreatitis (CMS/HCC) Elmo Escobar MD Phone: tel: fax: Referral ID Status Reason Start Date Expiration Date V isits Requested Visits Authorized [id number] Closed Specialty Services Required 08/28/2020 02/24/2021 1 1 Encounter Details Date Type Department Care Team (Late st Contact Info) Description 10/18/2020 3:20 PM EDT Office Visit MD [facility] [address] [place] [address] Claudio Sy PA [address] [place] [address] Recurrent pancreatitis (Primary Dx); Choledocholithiasis; Non-intractable vomiting with nausea, unspecified vomiting type; NSAID long-term use Social History Tobacco Use Types Packs/Day Years [...] Sign Reading Time Taken Comments Blood Pressure 129/94 10/18/2020 2:56 PM EDT Pulse 111 10/18/2020 2:56 PM EDT Temperature 36.2 ??C (97.1 ??F) 10/18/2020 2:56 PM ED T Respiratory Rate - - Oxygen Saturation 95% 10/18/2020 2:56 PM EDT Inhaled Oxygen Concentration - - Weight 79.8 kg (176 lb) 10/18/2020 2:56 PM EDT Height 165.1 cm (5' 5 ) 10/18/2020 2:56 PM EDT Body Mass Index 29.29 10/18/2020 2:56 PM EDT documented in this encounter Miscellaneous Notes * Progress Notes - Claudio Sy PA - 10/18/2020 3:20 PM EDT Subjective Patient ID: Lila Mcnally is a 34 y.o. female. Chief Complaint Patient presents with ??? Pancreatitis ??? Abdominal Pain x2 days ??? Vomiting ??? Diarrhea Ms. Mcnally is a 34 year old [...] was reportedly diagnosed with acute pancreatitis at [facility]. She wastreated conservatively and discharged. From that point on she reports intermittent flares of upper abdominal pain consistent with pancreatitis, however, much less severe. She did not seek medical treatment for this pain. In February of this year she experienced another severe flare of abdominal painwith vomiting and was admitted to [facility] where she was diagnosed with recurrent pancreatitis. She had another admission in april which resulted in ERCP and removal of de estella choledocholithiasis by Dr. Heller. We are awaiting arrival of these records. After ERCP, she reports resolution of pain for around 3 weeks. From that point until today she estimates that she has been in the [facility] ED around 20 times for [...] of pancreatitis, pancreatic cancer or cystic fibrosis. Abdominal Pain This is a chronic problem. The current episode started more than 1 month ago. The onset quality is sudden. The problem occurs every several days. The pain is located in the LUQ. The pain is at a severity of 8/10. The quality of the pain is dull and sharp. The abdominal pain radiates to the left shoulder, back, left flank and pelvis. Associated symptoms include anorexia, arthralgias, belching, diarrhea, myalgias, nausea and vomiting. Pertinent negatives include no constipation, dysuria, fever, flatus, frequency, headaches, hematochezia, hematuria, melena or weight loss. Nothing aggravates the pain. The pain is relieved by nothing, being still and certain positions. Vomiting Associated symptoms include abdominal pain, arthralgias, diarrhea and myalgias. Pertinent negativesinclude no chest pain, chills, fever, headaches or weight loss. Diarrhea Associated symptoms include abdominal pain, arthralgias, myalgias and vomiting. Pertinent negativesinclude no chills, fever, headaches, increased flatus or weight loss. The following portions of the chart were reviewed this encounter and updated as appropriate: Tobacco Allergies Meds Problems Med Hx Surg Hx Fam Hx Review of Systems Constitutional: Negative for chills, fever and weight loss. HENT: Negative for trouble swallowing. Respiratory: Negative for shortness of breath. Cardiovascular: Negative for chest pain. Gastrointestinal: Positive for abdominal pain, anorexia, diarrhea, nausea and vomiting. Negative for constipation, flatus, hematochezia and melena. Genitourinary: Negative for dysuria, frequency and hematuria. Musculoskeletal: Positive for arthralgias and myalgias. Skin: Negative for color change and pallor. Neurological: Negative for headaches. Psychiatric/Behavioral: Negative for agitation, behavioral problems and confusion. All other systems reviewed and [...] Skin is not jaundiced or pale. Neurological: Mental Status: She is alert and oriented to person, place, and time. Psychiatric: Mood and Affect: Affect is tearful. Behavior: Behavior normal. Assessment/Plan Diagnoses and all orders for this visit: Recurrent pancreatitis - CBC; Future - Lipase; Future - Ionized calcium, serum; Future - IMMUNOGLOBULIN G SUBCLASS 4; Future - IgG; Future - Lipid panel; Future - Vitamin D 25 hydroxy; Future - Vitamin A; Future - Vitamin E; Future - Hemoglobin A1c; Future - MR Abdomen w and wo IV Contrast; Future Choledocholithiasis - Comprehensive metabolic panel; Future - MR Abdomen w and wo IV Contrast; Future Non-intractable vomiting with nausea, unspecified vomiting type - hCG, quantitative, ; Future NSAID long-term use Other orders - omeprazole (PriLOSEC) [address] capsule; Take 1 capsule (40 mg total) by mouth 1 (one) time each day before breakfast. Do not crush or chew. - ondansetron (Zofran) 8 MG tablet; Take 1 tablet (8 mg total) by mouth every 8 (eight) hours if needed for nausea or vomiting. NSAID usage: As detailed above, Ms. Mcnally has been taking 800 mg ibuprofen on average once daily for the past several months. I am concerned that gastritis may be contributing to chronic epigastric pain. EGD from November at [facility] with linear gastritis and no ulcers or erosions. No signs of melena, hematemesis/coffee ground emesis, melena or hematochezia. CBC from August at [facility] wnl. We have advised sparing usage of NSAIDs and will institute 3 month course of 40 mg omeprazole. Repeat CBC today. Recurrent pancreatitis: As detailed above, Ms. Mcnally has experienced recurrent bouts of pancreatitis dating back to 2018. Over the last 6 months frequency and severity of flares has escalated dramatically. Review of available records from [facility] in [place] confirm admissions for pancreatitis in November, May and June. EGD in November confirming gastritis with linear erosions. Chart mentioned hx of etoh binge drinking but no drinking hx over the last several months. CT a/p w/ contrast from 07/10 failed to document any changes of acute or chronic pancreatitis. ERCP with Dr. Heller on 07/13 documented potential SOD with mention of delayed biliary transit. Biliary sphincterotomy was performed with subsequent removal of sludge and a soft yellow biliary stone. No significant improvement in frequency or severity of abdominal pain flares since ERCP/biliary sphincterotomy. Repeat admission to [facility] in July with confirmed lipase over 3100. We will completeworkup for etiology of pancreatitis today including IGG4, ionized calcium, FLP and stat MRCP to eval uate PD stricture/stones, CBD stricture/stones, annamaria pancreatic fluid collections, abscesses, etc. We have advised complete etoh/marijuana abstinence along with low fat diet. We will increase prn ondansetron dose to 8 mg. Planned follow up after imaging to discuss results. documented in this encounter Plan of Treatment Not on file documented as of this encounter Results * hCG, quantitative, (10/18/2020 4:32 PM EDT) hCG, Total Beta <1 <5 mIU/mL 10/18/2020 7:18 PM EDT [facility] Blood Venous blood specimen / Unknown Venipuncture / Unknown 10/18/2020 4:32 PM EDT 10/18/2020 4:33 PM EDT Narrative [facility] - 10/18/2020 7:18 PM EDT Patients: ? Normal Range Premenopausal [...] bladder, pancreas, stomach, lung and liver tumors. us Claudio [facility]JERA [facility] BLOOD ORDERABLES Final Re sult [facility] [address] [place] [address] * Hemoglobin A1c (10/18/2020 4:32 PM EDT) Hemoglobin A1c 5.3 <5.7 % 10/18/2020 7:20 PM EDT [facility] Blood Venous blood specimen / Unknown Venipuncture / Unknown 10/18/2020 4:32 PM EDT 10/18/2020 4:33 PM EDT Narrative [facility] - 10/18/2020 7:20 PM EDT HA1C Interpretive Data: Diagnosis of Diabetes: Diabetic > or = 6.5% Pre-diabetic 5.7 to 6.4% Non-diabetic < or = 5.6% Glycemic Targets for Type I and Type II Diabetics: Non- Adults <7.0% Adults <6.0% Children and Adolescents <7.5% Source: ??[place] [employer] Association. Standards of medical care in diabetes,2017. Diabetes Care.2017:40 (suppl 1):S1-S135. HbA1c assay performed by an ion-exchange chromatography method that is certified traceable to the DCCT. Claudio NAJERA LAB BLOOD ORDERABLES Final Re sult [facility] [address] [place] [address] * Vitamin E (10/18/2020 4:32 PM EDT) Vitamin E (Alpha-Tocophe rol) 12.4 5.5 - 18.0 mg/L 10/22/2020 3:00 PM EDT [facility] ([facility]) Vitamin E (Gamma-Tocophe rol) 2.2 0.0 - 6.0 mg/L 10/22/2020 3:00 PM EDT [facility] ([facility]) Blood Venous blood specimen / Unknown Venipuncture / Unknown 10/18/2020 4:32 PM EDT 10/18/2020 4:33 PM EDT Narrative [facility] ([facility]) - 10/22/2020 3:00 PM EDT This test was developed and its performance characteristics determined by [facility]. It has not been cleared or approved by the US Food and Drug Administration. This test was performed in a CLIA certified laboratory and is intended for clinical purposes. Performed By: [facility] [address] [place] [id number] Call Out Clerk: Linda Mancilla MD Claudio NA[facility]ER[facility] LAB BLOOD ORDERABLES Final Re sult Performing Organization Address [facility] de Phone Number [facility] ([facility]) [address] [place] [address] * Vitamin A (10/18/2020 4:32 PM EDT) Vitamin A (Retinyl Palmitate) 0.03 0.00 - 0.10 mg/L 10/22/2020 3:00 PM EDT [facility] ([facility]) VITAMIN A,SER/MATT-INTE RPRETATION Normal 10/22/2020 3:00 PM EDT [facility] ([facility]) Vitamin A (Retinol) 0.93 0.30 - 1.20 mg/L 10/22/2020 3:00 PM EDT [facility] ([facility]) Blood Venous blood specimen / Unknown Venipuncture / Unknown 10/18/2020 4:32 PM EDT 10/18/2020 4:33 PM EDT Narrative [facility] ([facility]) - 10/22/2020 3:00 PM EDT This test was developed and its performance characteristics determined by [facility]. It has not been cleared or approved by the US Food and Drug Administration. This test was performed in a CLIA certified laboratory and is intended for clinical purposes. Performed By: [facility] [address] [place] [address] Call Out Clerk: Linda Mancilla MD Claudio [facility] BLOOD ORDERABLES Final Re sult Performing Organization Address [facility] de Phone Number [facility] ([facility]) [address] [place] [address] * Vitamin D 25 hydroxy (10/18/2020 4:32 PM EDT) Vitamin D 25 Hydroxy 21.8 20.0 - 80.0 ng/mL 10/18/2020 8:58 PM EDT [facility] Comment: Vitamin D, 25-Hydroxy reference range, age 18 years and up: Deficiency: ? <12 ng/mL Insufficiency: ?12 to 19 ng/mL Sufficiency: ?20 to 80 ng/mL Possible toxicity: ??>100 ng/mL Blood Venous blood specimen / Unknown Venipuncture / Unknown 10/18/2020 4:32 PM EDT 10/18/2020 4:33 PM EDT us Claudio NAJERA [facility] BLOOD ORDERABLES Final Re sult [facility] [address] [place] [address] * (ABNORMAL) Lipid panel (10/18/2020 4:32 PM EDT) Cholesterol, Plasma 239(H) <200 mg/dL 10/18/2020 7:18 PM EDT [facility] Comment: Cholesterol Reference Range (age >17 years): Desirable? <200 mg/dL Borderline? 200 to 239 mg/dL Undesirable? >239 mg/dL HDL 54 >=50 mg/dL 10/18/2020 7:18 PM EDT [facility] Comment: HDL Cholesterol Reference Ranges (age >17 years): Female, acceptable? > or = 50 mg/dL Male, acceptable? > or = 40 mg/dL Triglycerides, Plasma 167(H) <150 mg/dL 10/18/2020 7:18 PM EDT [facility] Comment: Triglyceride Reference Range (age >17 years): Desirable:?? <150 mg/dL Borderline high:?? 150 to 199 mg/dL High:?? 200 to 499 mg/dL Very high:?? >499 mg/dL Increased risk of pancreatitis:?? >1000 mg/dL Cholesterol/HDL Ratio 4 10/18/2020 7:18 PM EDT [facility] LDL, Calculated 151.6(H) <100 mg/dL 10/18/2020 7:18 PM EDT [facility] Comment: LDL Cholesterol Reference Range (age >17 years): Optimal: ??<100 mg/dL Near or above optional: 100 - 129 mg/dL Borderline high: 130 - 159 mg/dL High: 160 - 189 mg/dL Very high: >189 mg/dL LDL Cholesterol Reference Range (age <18 years): Desirable: ? <110 mg/dL Borderline: ?110 - 129 mg/dL Undesirable: ?? >130 mg/dL Blood Venous blood specimen / Unknown Venipuncture / Unknown 10/18/2020 4:32 PM EDT 10/18/2020 4:33 PM EDT [facility] BLOOD ORDERABLES Final Re sult Performing Organization Address [facility] Co de Phone Number [facility] [address] [place] [address] * IgG (10/18/2020 4:32 PM EDT) IGG 902 720-1,589 mg/dL 10/18/2020 7:18 PM EDT [facility] Blood Venous blood specimen / Unknown Venipuncture / Unknown 10/18/2020 4:32 PM EDT 10/18/2020 4:33 PM EDT [facility] BLOOD ORDERABLES Final Re sult Performing Organization Address [facility] de Phone Number [facility] [address] [place] [address] * IMMUNOGLOBULIN G SUBCLASS 4 (10/18/2020 4:32 PM EDT) IMMUNOGLOBULIN G SUBCLASS 4 32.6 4.0 - 86.0 mg/dL 10/23/2020 3:26 PM EDT [facility] (BEAKER) Comment: Test Performed by Gabrielle Suresh, [employer] [facility], [address] [place], [place] Zana Monroe M.D., Ph.D., Director of Laboratories , [place] [id number] Blood Venous blood specimen / Unknown Venipuncture / Unknown 10/18/2020 4:32 PM EDT 10/18/2020 4:33 PM EDT Narrative [facility] ([facility]) - 10/23/2020 3:26 PM EDT Performing Organization Information: ?Site ID: [id number] ?Name: [facility] ?Address: [address] [place] [address] ?Director: Zana Monroe M.D. Claudio [facility]ER[facility] BLOOD ORDERABLES Final Re sult [facility]) * Ionized calcium, serum (10/18/2020 4:32 PM EDT) Ionized Calcium, Serum 5.3 4.6 - 5.3 mg/dL LAB HEMATOLOGY METHOD 10/18/2020 6:41 PM EDT [facility] Blood Venous blood specimen / Unknown Venipuncture / Unknown 10/18/2020 4:32 PM EDT 10/18/2020 4:33 PM EDT [facility] BLOOD ORDERABLES Final Re sult Performing Organization Address [facility] Co de Phone Number [facility] [address] [place] [address] * Lipase (10/18/2020 4:32 PM EDT) Lipase, Plasma 42 19 - 63 U/L 10/18/2020 7:18 PM EDT [facility] Blood Venous blood specimen / Unknown Venipuncture / Unknown 10/18/2020 4:32 PM EDT 10/18/2020 4:33 PM EDT [facility] BLOOD ORDERABLES Final Re sult Performing Organization Address [facility] Co de Phone Number [facility] [address] [place] [address] * (ABNORMAL) Comprehensive metabolic panel (10/18/2020 4:32 PM EDT) Glucose, Plasma 109(H) 74 - 99 mg/dL 10/18/2020 7:18 PM EDT [facility] BUN, Plasma 17 7 - 21 mg/dL 10/18/2020 7:18 PM EDT [facility] Creatinine, Plasma 0.70 0.60 - 1.10 mg/dL 10/18/2020 7:18 PM EDT [facility] BUN/Creatinine Ratio 24 10/18/2020 7:18 PM EDT [facility] Sodium, Plasma 136 136 - 145 mmol/L 10/18/2020 7:18 PM EDT [facility] Potassium, Plasma 4.0 3.7 - 4.8 mmol/L 10/18/2020 7:18 PM EDT [facility] Chloride, Plasma 102 97 - 107 mmol/L 10/18/2020 7:18 PM EDT [facility] CO2, Plasma 17(L) 22 - 29 mmol/L 10/18/2020 7:18 PM EDT [facility] Anion Gap 17(H) 6 - 16 mmol/L 10/18/2020 7:18 PM EDT [facility] Total Calcium, Plasma 10.0 8.9 - 10.2 mg/dL 10/18/2020 7:18 PM EDT [facility] Total Protein 8.3(H) 6.3 - 7.9 g/dL 10/18/2020 7:18 PM EDT [facility] Albumin, Plasma 5.0 3.5 - 5.2 g/dL 10/18/2020 7:18 PM EDT [facility] AST, Plasma 18 11 - 32 U/L 10/18/2020 7:18 PM EDT [facility] ALT, Plasma 21 8 - 33 U/L 10/18/2020 7:18 PM EDT [facility] Alkaline Phosphatase, Plasma 109(H) 35 - 104 U/L 10/18/2020 7:18 PM EDT [facility] Total Bilirubin, Plasma 0.3 0.2 - 1.1 mg/dL 10/18/2020 7:18 PM EDT [facility] eGFR >60 >60 mL/min/1.7 3m*2 10/18/2020 7:18 PM EDT [facility] Comment:eGFR = estimated GFR [...] if AFR/AM >60 >60 mL/min/1.7 3m*2 10/18/2020 7:18 PM EDT [facility] Comment:eGFR = estimated GFR [...] specimen / Unknown Venipuncture / Unknown 10/18/2020 4:32 PM EDT 10/18/2020 4:33 PM EDT us Cl[facility] BLOOD ORDERABLES Final Re sult [facility] [address] [place] [address] * (ABNORMAL) CBC (10/18/2020 4:32 PM EDT) WBC Count 10.02 3.70 - 10.30 10*3/uL LAB HEMATOLOGY METHOD 10/18/2020 7:14 PM EDT [facility] RBC Count 5.31(H) 3.90 - 5.20 10*6/uL LAB HEMATOLOGY METHOD 10/18/2020 7:14 PM EDT [facility] HGB 15.4 11.2 - 15.7 g/dL LAB HEMATOLOGY METHOD 10/18/2020 7:14 PM EDT [facility] HCT 46.3(H) 34.0 - 45.0 % LAB HEMATOLOGY METHOD 10/18/2020 7:14 PM EDT [facility] Platelet Count 365 155 - 369 10*3/uL LAB HEMATOLOGY METHOD 10/18/2020 7:14 PM EDT [facility] MCV 87 79 - 98 fL LAB HEMATOLOGY METHOD 10/18/2020 7:14 PM EDT [facility] MCH 29.0 26.0 - 32.0 pg LAB HEMATOLOGY METHOD 10/18/2020 7:14 PM EDT [facility] MCHC 33.3 30.7 - 35.5 g/dL LAB HEMATOLOGY METHOD 10/18/2020 7:14 PM EDT [facility] RDW 13.2 11.5 - 14.5 % LAB HEMATOLOGY METHOD 10/18/2020 7:14 PM EDT [facility] MPV 10.7 8.8 - 12.5 fL LAB HEMATOLOGY METHOD 10/18/2020 7:14 PM EDT [facility] nRBC 0.0 <=0.0 per 100 WBCs LAB HEMATOLOGY METHOD 10/18/2020 7:14 PM EDT [facility] Blood Venous blood specimen / Unknown Venipuncture / Unknown 10/18/2020 4:32 PM EDT 10/18/2020 4:33 PM EDT us Claudio [facility] BLOOD ORDERABLES Final Re sult Performing Organization Address City/State/[facility] Co de Phone Number [facility] [address] [place] [address] documented in this encounter Visit Diagnoses Diagnosis Recurrent pancreatitis- Primary Chronic pancreatitis Choledocholithiasis Calculus of bile duct without mention of cholecystitis or obstruction Non-intractable vomiting with nausea, unspecified vomiting type NSAID long-term use Encounter for long-term (current) use of non-steroidal anti-inflammatories documented in this encounter Additional Health Concerns Assessment Noted Time A fall risk assessment has been complete d for the patient 10/18/2020 3:02 PM EDT documented as of this encounter Care Teams Battery Plate Remover Relationship Specialty Start Date End Date Elmo Escobar MD PCP - General 10/18/20 01/05/23 documented as of this encounter
--- OUTSIDE RECORDS SUMMARY | 2024-02-03 15:30 | XMS_ITS | Encounter Summary ---
Author Organization [facility] Address [address] [place] [address] Care Team Providers Care Anesthesiologist Name Role Phone Elmo Escobar MD Primary Care Provider [phone] Encounter Details Date Type Department Care Team (Latest Contact Info) Description 10/18/2020 Travel Social History Tobacco Use Types Packs/Day [...] documented as of this encounter Care Teams Anesthesiologist Relationship Specialty Start Date End Date Elmo Escobar MD PCP - General 10/18/20 01/05/23 documented as of this encounter
--- OUTSIDE RECORDS SUMMARY | 2024-02-03 15:30 | XMS_ITS | Encounter Summary ---
Author Organization Healthcare Address [address] [place] [address] Care Team Providers Care Scuba Dive Training Instructor Name Role Phone Unavailable Primary Care Provider Unavailabl e Encounter Details Date Type Department Care Team (Late st Contact Info) Description 01/25/2016 [facility] Vitals Encounter [facility] OUTPATIENT CONVERSIONS [address] [place] [address] Provider, MD Alma [address] [place], [place] [id number] Social History Tobacco Use Types Packs/Day Years Used Date Smoking Tobacco: Never Assessed Comments Unknown Sex and Gender Information Value Date Recorded Sex Assigned at Female 11/30/2020 9:14 AM EDT Legal Sex Female 8:12 PM EDT Gender Identity Female 11/30/2020 9:14 AM EDT Sexual Orientation Straight 11/30/2020 9: 14 AM EDT documented as of this encounter Last Filed Vital Signs Vital Sign Reading Time Taken Comments Blood Pressure - - Pulse - - Temperature - - Respiratory Rate - - Oxygen Saturation - - Inhaled Oxygen Concentration - - Weight 80.7 kg (178 lb) 01/25/2016 2:08 PM EST Height 167.6 cm (5' 6 ) 01/25/2016 2:08 PM EST Body Mass Index 28.73 01/25/2016 2:08 PM EST documented in this encounter Plan of Treatment Not on file documented as of this encounter Visit Diagnoses Not on filedocumented in this encounter
--- OUTSIDE RECORDS SUMMARY | 2024-02-03 15:30 | XMS_ITS | Encounter Summary ---
Author Organization Healthcare Address [address] [place] [address] Care Team Providers Care Calculator Operator Name Role Phone Unavailable Primary Care Provider Unavailabl e Encounter Details Date Type Department Care Team (Latest Contact Info) Description 10/12/2020 Travel Social History Tobacco Use Types Packs/Day [...]
--- OUTSIDE RECORDS SUMMARY | 2024-02-03 15:30 | XMS_ITS | Encounter Summary ---
Author Organization Healthcare Address [address] [place] [address] Care Team Providers Care Salvage Winder Name Role Phone Elmo Escobar MD Primary Care Provider [phone] Tiffanie Gonzalez WHEEL PRESSER Unavailable UnavailRafiq Walker DO Primary Care Provider [phone] Pcp, No Primary Care Provider Unavailabl Citlali Larios RETAIL SALES CONSULTANT Primary Care Provider [phone] Dipika Lorenzana WHEEL PRESSER Unavailable Unavaila ble Pcp, No Primary Care Provider UnavailLisa Perez RETAIL SALES CONSULTANT Primary Care Provider Amira Solis WHEEL PRESSER Unavailable Unavailable Cally Tilley WHEEL PRESSER Unavailable Unavailable Encounter Details Date Type Department Care Team (Latest Contact Info) Description 08/23/2020 [facility] [address] [place] [phone] Elmo Escobar MD [address] [place] [address] Chronic recurrent pancreatitis (CMS/HCC) (Primary Dx) Social [...] 09/18/2022 3:18 PM EDT Respiratory Rule-Out 09/19/2022 09/18/20222 023 12:55 PM EDT COVID-19 Rule-Out 09/19/2022 [...] documented as of this encounter Care Teams Salvage Winder Relationship Specialty Start Date End Date Elmo Escobar MD PCP - General 10/18/20 01/05/23 Rafiq Song DO [address] [place] [id number] PCP - General 01/06/23 03/16/23 Pcp, No [address] [place] [address] PCP - General Family Medicine 03/18/23 03/25/23 Citlali Marquez RETAIL SALES CONSULTANT [address] [place] [phone] PCP - General Family Medicine 03/26/23 10/19/23 Pcp, No [address] [place] [address] PCP - General Family Medicine 10/22/23 10/22/23 Lisa Foote, RETAIL SALES CONSULTANT [address] [place] [address] PCP - General 10/23/23 Tiffanie Gonzalez LPN [employer] [place] [address] Care Coordination Nurse 06/20/2207/18 Dipika Lorenzana LPN [employer] TCM Nurse 04/17/23 05/15/23 Amira Solis LPN [employer] [place] [address] TCM Nurse 12/03/23 12/03/23 Cally Tilley LPN [employer] [place] [address] TCM Nurse 12/03/23 01/01/24 documented as of this encounter
--- NOTE | 2024-02-03 16:05 | A.OFFVIS_ITS ---
HPI Data of Consult Patient: new to practice Consult date: 02/03/24 Requesting Physician: Jun Rice DO Primary Care Provider: Lisa Foote APRN Consult Narrative Reason for consult: Chronic abdominal pain History of present illness: Ms. Mcnally is a 38 year old female who presents today as a new patient. Today she rates her pain an 8 out of 10. Patient states that she has chronic pancreatitis that she has been dealing with since 2019 or longer. Patient states that it is a constant sharp pressure sensation with even [id number] and that the pain is constant in her abdomen. Patient states that she frequently goes a couple times a month to the ER due to the severe pain. Patient states that she was diagnosed with chronic pancreatitis in the past. Patient states that she even had a surgery here at [facility] about 5 years ago because she had a stone that had to be removed in her pancreas. Patient also states that she has had her gallbladder taken out. Patient states that she frequently goes to [facility] or [facility] when she does go to the ER. Patient denies having a specific specialist for the pancreatitis. Patient also states she has a lot of nausea and vomiting related to this pain and it does interfere with her ability perform activities of daily living such as cooking and cleaning. Patient also states that she has been seen by our office in the past and that had even been discussed regarding a pump however she went for her psych eval and that she did not pass it. Patient states she has a lot of anxiety and that now looking back she can see why she was denied. Patient does feel like that this would be a good option for her and she would like to proceed forward with this. Patient states that she is currently on oxycodone 10 mg tablets and that they got her enough to get to this appointment and is asking whether or not if that something that we would be able to prescribe. Her Ramses has been reviewed. CC: Jun Rice DO [facility] Disclaimer: The information contained in this section may have been updated after the patient was seen, as this information can be updated by other users. Medical History Gastroenteritis Acute lower GI bleeding Depressed Anxiety History of fracture of hand compartment sydrome Overactive bladder Osteoarthritis Gallbladder disease History of gastroesophageal reflux (GERD) Patient left without being seen Sinusitis Impetigo Abdominal pain Nausea vomiting and diarrhea Epigastric pain Left upper quadrant pain Thrush Rupture of cyst of right ovary Alcohol consumption binge drinking Acute pancreatitis Surgical History Hx of esophagogastroduodenoscopy Hx of endoscopic retrograde cholangiopancreatography Hx of dilation and curettage History of colonoscopy History of cholecystectomy Family History Other Family history of acute congestive heart failure Family history of hyperlipidemia Family history of hypertension Social History Smoking Status: Unknown if ever smoked years smoked: 20 second hand exposure: No alcohol intake: former substance use type: former substance user and marijuana current occupational status: unemployed Travel in the last 8 weeks: None household members: significant other, family and children housing: house marital status: single number of children: 3 education level: high school caffeine: No special jeanette needs: No agree to transfusion: No do you feel safe at home: Yes victim of physical abuse: No victim of emotional abuse: No victim of sexual abuse: No would you like helpful sources: No Review of Systems Review of Systems Review of systems:: pertinent systems reviewed and negative unless documented below Review of systems (narrative): Review of Systems: General: No recent weight changes, no fever, no sleep disturbances Respiratory: No cough, no shortness of air, no recurring pulmonary infections Cardiovascular/peripheral vascular: No chest pain, no palpitations, no edema, no shortness of breath Gastrointestinal: No new onset incontinence, normal bowel movements reported Genitourinary: No new onset incontinence Musculoskeletal: Abdominal pain Psychiatric: [Normal mood/affect] Neurological: [Denies weakness in extremities], [denies balance issues] Meds Home Medications and Allergies Home Medications ?Medication ?Instructions ?Recorded ?Confirmed ?Type pregabalin 300 mg capsule (Lyrica) 300 mg PO BID pain 30 days #60 caps 02/05/23 11/19/23 Rx acetaminophen 500 mg tablet 1,000 mg (2 x 500 mg) PO Q6HP PRN 07/15/23 11/19/23 Rx Mild To Moderate Pain (1-6) #30 tabs hydroxyzine pamoate 25 mg capsule 50 mg (2 x 25 mg) PO Q8HP PRN 07/15/23 11/19/23 Rx ANXIETY/SLEEP #60 caps ibuprofen 400 mg tablet 800 mg (2 x 400 mg) PO Q8HP PRN 07/15/23 11/19/23 Rx Mild To Moderate Pain (1-6) #60 tabs oxycodone 5 mg tablet 5 mg PO Q4HP PRN Severe Pain 07/15/23 11/19/23 Rx (7-10) #8 tabs dicyclomine 10 mg capsule 10 mg PO BID #4 caps 10/22/23 11/19/23 Rx ondansetron 4 mg disintegrating 4 mg PO Q6H PRN nausea and 10/22/23 11/19/23 Rx tablet vomiting #7 tabs New Prescriptions to Start Prescriptions: Allergies Allergy/AdvReac Type Severity Reaction Status Date / Time droperidol AdvReac Intermediate jaw go Verified 07/13/23 11:30 sideways prochlorperazine (From AdvReac Verified 07/14/23 10:10 Compazine) tramadol AdvReac Verified 07/14/23 10:10 Objective Narrative: Physical Exam: General: Alert and oriented x3, no acute distress, pleasant and cooperative Lungs: Respirations even and unlabored, symmetrical chest expansion Eyes: PERRL Musculoskeletal: Flexion and extension of lumbar [spine] somewhat guarded secondary to pain, point tenderness along right and left upper quadrants of her abdomen Neurological: Speech clear, no gross sensory deficit Assessment and Plan *Assessment and plan (1) Chronic pancreatitis: Status: Acute Category: Medical Code(s): K86.1 - Other chronic pancreatitis (2) Abdominal pain, right lower quadrant: Status: Acute Category: Medical Code(s): R10.31 - Right lower quadrant pain Plan I did discuss with the patient that we can still possibly see about a intrathecal pain pump trial however she still would have to pass a psychological evaluation deeming her an appropriate candidate. Patient acknowledges understanding and would like to proceed forward with this plan of care. Patient has been experiencing chronic abdominal pain for the last 5 years with episodes of pancreatitis. I did discuss with the patient that we will see about getting copies of her records. Patient does have a longstanding history of medication use. We will review in future whether or not if we would just be offering a bupivacaine intrathecal pump. Patient will return to clinic in 6 weeks following her psychological evaluation. Patient has been instructed to contact the clinic with any concerns before the next appointment. Dr. Castellon has reviewed this note and agrees with this plan of care. This note was dictated using voice recognition software and make contain errors or omissions. All injections are used with Lidocaine or Bupivacaine and Depo Medrol.
[2024-02-03 16:11] VITALS: BP 143/94; PULSE 98; RESP 18; O2SAT 99; BMI 33.3
== END 2024-02-03 23:59 | disposition home or self-care (01) ==
LOC: SC.PAIN 14:59
PROVIDERS: PCP Nurse Practitioner; Visit Provider Orthopaedic Surgery
DX: K86.1 Other chronic pancreatitis (principal); R10.31 Right lower quadrant pain; Z73.89 Other problems related to life management difficulty
CPT/HCPCS: 99202; G0463

== ENCOUNTER 2024-03-12 21:05 | Emergency (ER) | payer OTHER, SELFPAY ==
[2024-03-12 21:05] VITALS: BP 192/111; PULSE 109; RESP 16; TEMP 36.6; O2SAT 96; BMI 33.3
[2024-03-12 21:30] VITALS: BP 159/103; PULSE 109; RESP 17; O2SAT 97
--- NOTE | 2024-03-12 21:33 | XR_ITS ---
PROCEDURE INFORMATION: Exam: XR Abdomen Exam date and time: 03/12/2024 10:18 PM Age: 38 years old Clinical indication: Constipation TECHNIQUE: Imaging protocol: Radiologic exam of the abdomen. Views: Frontal supine view of the abdomen. 1 View. COMPARISON: CT ABDOMEN PELVIS W CON 10/21/2023 10:48 PM FINDINGS: Gastrointestinal tract: Moderate fecal content throughout the colon. No bowel obstruction. No free air. Organs: Surgical clips in the right upper quadrant from presumed cholecystectomy. Bones/joints: Unremarkable. IMPRESSION: Moderate fecal content throughout the colon.
[2024-03-12] MEDS: hydrOXYzine pamoate 25MG CAPSULE 25 MG PO (21:46)
--- NOTE | 2024-03-12 21:46 | PC.NURSE ---
PT ambulated to bathroom with standby assistance. Urine obtained @ 2136 . PT returned to room, in bed with bed rails up, call light in reach . water given .
[2024-03-12 21:48] LABS: Microscopic, Urine URINE MICROSCOPIC (MICROSCOPIC)
[2024-03-12 21:50] LABS: Appearance,Urine CLEAR (Clear); Bilirubin,Urine Negative (Negative); Blood, Urine Negative (Negative); Color,Urine YELLOW (Yellow); Glucose,Urine (UA) Negative (Negative); Ketones,Urine Negative (Negative); Leukocyte Esterase,Urine Negative (Negative); Nitrate,Urine Negative (Negative); Protein,Urine Negative (Negative); Specific Gravity, Urine <= 1.005 (1.005-1.030); Urobilinogen,Urine 0.2 EU/dl (0.2)
[2024-03-12 21:52] LABS: Albumin Level 4.1 g/dl (3.5-5.0); Chloride 102 mmol/L (98-107); Potassium 3.2 mmoL/L (3.5-5.1); Sodium 134 mmol/L (136-145)
[2024-03-12 21:54] LABS: Basophils # 0.1 K/mm3 (0-0.2); Basophils % 0.5 % (0.1-2.0); Blood Urea Nitrogen 13 mg/dl (7-17); Creatinine Clearance Estimated 184 mL/min (50-200); Eosinophils # 0.1 K/mm3 (0.0-0.4); Eosinophils % 0.8 % (0.1-12.0); Estimated Glomerular Filt Rate 112 ml/min (>60); GFR (African American) 136 ML/MIN (>60); Hematocrit 34.5 % (37.0-47.0); Hemoglobin 10.8 g/dL (12.2-16.2); Lymphocytes % 19.9 % (10-50); Mean Corpuscular HGB Conc 31.3 g/dL (31.8-35.4); Mean Corpuscular Hemoglobin 25.5 pg (27.0-31.2); Mean Corpuscular Volume 81.6 fl (81-99); Mean Platelet Volume 9.9 fl (7.4-10.4); Monocytes # 0.5 K/mm3 (0.1-1.0); Monocytes % 5.2 % (1.7-9.3); Neutrophils # 7.2 K/mm3 (1.8-7.8); Neutrophils % 73.2 % (37.0-80.0); Platelet Count 248 K/mm3 (142-424); Red Blood Count 4.23 M/mm3 (4.20-5.40); Red Cell Distribution Width 16.1 % (11.5-17.5); White Blood Count 9.9 K/mm3 (4.8-10.8)
[2024-03-12 21:55] LABS: Alanine Aminotransferase 31 U/L (12-78); Albumin/Globulin Ratio 1.6 (1.1-1.8); Alkaline Phosphatase 85 U/L (38-126); Anion Gap 11.2 mEq/L (5-15); Aspartate Amino Transferase 34 U/L (14-36); Bilirubin,Total 0.2 mg/dl (0.2-1.3); Calcium 9.3 mg/dl (8.4-10.2); Carbon Dioxide 24 mmol/L (22.0-30.0); Globulin 2.5 g/dL (1.3-3.2); Glucose 107 mg/dl (74-100); Total Protein,Serum 6.6 g/dl (6.3-8.2)
[2024-03-12 22:00] VITALS: BP 173/118; PULSE 101; O2SAT 98
[2024-03-12 22:09] LABS: Bacteria,Urine Trace /lpf; RBC,Urine Occasional #/hpf (0-3); WBC,Urine Occasional #/hpf (0-3)
[2024-03-12 22:11] LABS: HCG Qualitative, Serum Negative (Negative)
--- NOTE | 2024-03-12 22:17 | ED_ITS ---
Discharge Plan Disposition Chief Complaint: Abdominal Pain Prescriptions Prescriptions: No Action pregabalin [Lyrica] 300 mg capsule 300 mg PO BID 30 Days Qty: 60 1RF acetaminophen 500 mg Tablet 1,000 mg PO Q6HP PRN (Reason: Mild To Moderate Pain (1-6)) Qty: 30 1RF ibuprofen 400 mg Tablet 800 mg PO Q8HP PRN (Reason: Mild To Moderate Pain (1-6)) Qty: 60 2RF hydroxyzine pamoate 25 mg Capsule 50 mg PO Q8HP PRN (Reason: ANXIETY/SLEEP) Qty: 60 2RF oxycodone 5 mg Tablet 5 mg PO Q4HP PRN (Reason: Severe Pain (7-10)) Qty: 8 0RF dicyclomine 10 mg capsule 10 mg PO BID Qty: 4 0RF ondansetron 4 mg tablet,disintegrating 4 mg PO Q6H PRN (Reason: nausea and vomiting) Qty: 7 0RF Referrals Follow up/Referrals: Provider,Referral, MD [Primary Care Provider] - See instructions Instructions Patient Instructions: DI for Acute Abdominal Pain Print Language Print Language: Kyrgyz Discharge ED Provider: Citlaly Vergara General Adult HPI General Chief complaint: Abdominal Pain Stated complaint: Abdominal pain Time Seen by Provider: 03/12/24 21:07 Mode of Arrival: Ambulatory Source of Information: Patient Limitations: No Limitations Description of Symptoms (Recalled from ER Triage Doc. by RN): Patient complains of abdominal pain 09/01- states she believes she is impacted. Also complains of numbness and swelling in right hand. States last BM was today and she got a ball of stool out but believes she has more inside, so she took lactulose. States she got out of yesterday, and was admitted there for 7 days. History of Present Illness HPI narrative: Patient is a 38-year-old female presenting with abdominal pain. Patient complains of lower abdominal pain stating she has not had a bowel movement in 6 days. She states she has tried lactulose, manual disimpaction, a spoon to disimpact. She states she got a small amount of stool out. She denies dysuria, nausea, vomiting. Patient states she has severe anxiety and used to be on Ativan for it. Patient admits to taking significant amount of narcotics without a bowel regimen. Patient denies fever, chills, chest pain, shortness of breath. Patient states she is supposed to have a colonoscopy, endoscopy, emptying study done as the doctors told her that she may have gastroparesis. Related Data Previous Rx's ?Medication ?Instructions ?Recorded pregabalin 300 mg capsule (Lyrica) 300 mg PO BID pain 30 days #60 caps 02/05/23 acetaminophen 500 mg tablet 1,000 mg (2 x 500 mg) PO Q6HP PRN 07/15/23 Mild To Moderate Pain (1-6) #30 tabs hydroxyzine pamoate 25 mg capsule 50 mg (2 x 25 mg) PO Q8HP PRN 07/15/23 ANXIETY/SLEEP #60 caps ibuprofen 400 mg tablet 800 mg (2 x 400 mg) PO Q8HP PRN 07/15/23 Mild To Moderate Pain (1-6) #60 tabs oxycodone 5 mg tablet 5 mg PO Q4HP PRN Severe Pain 07/15/23 (7-10) #8 tabs dicyclomine 10 mg capsule 10 mg PO BID #4 caps 10/22/23 ondansetron 4 mg disintegrating 4 mg PO Q6H PRN nausea and 10/22/23 tablet vomiting #7 tabs Allergies Allergy/AdvReac Type Severity Reaction Status Date / Time droperidol AdvReac Intermediate jaw go Verified 07/13/23 11:30 sideways prochlorperazine (From AdvReac Verified 07/14/23 10:10 Compazine) tramadol AdvReac Verified 07/14/23 10:10 [facility] Disclaimer: The information contained in this section may have been updated after the patient was seen, as this information can be updated by other users. Medical History Gastroenteritis Acute lower GI bleeding Depressed Anxiety History of fracture of hand compartment sydrome Overactive bladder Osteoarthritis Gallbladder disease History of gastroesophageal reflux (GERD) Patient left without being seen Sinusitis Impetigo Abdominal pain Nausea vomiting and diarrhea Epigastric pain Left upper quadrant pain Thrush Rupture of cyst of right ovary Alcohol consumption binge drinking Acute pancreatitis Surgical History Hx of esophagogastroduodenoscopy Hx of endoscopic retrograde cholangiopancreatography Hx of dilation and curettage History of colonoscopy History of cholecystectomy Family History Other Family history of acute congestive heart failure Family history of hyperlipidemia Family history of hypertension Social History (Updated 02/03/24 @ 16:13 by Huma Pina RN) Smoking Status: Current every day smoker tobacco type: cigarettes packs per day: 1 years smoked: 20 second hand exposure: No alcohol intake: former substance use type: former substance user and marijuana current occupational status: unemployed Travel in the last 8 weeks: None household members: significant other, family and children housing: house marital status: single number of children: 3 education level: high school caffeine: No special jeanette needs: No agree to transfusion: No do you feel safe at home: Yes victim of physical abuse: No victim of emotional abuse: No victim of sexual abuse: No would you like helpful sources: No Have you lived/traveled outside [place] in past 30 days?: No Contact w/someone who lives/traveled outside US past 30 days?: No Exposure to someone with infectious disease in past 14 days?: No Do you have a fever (greater than 100.4 F or 38 C)?: No Have you tested positive for COVID-19: No Exposed to someone with COVID-19 in past 14 days?: No Do you have a sore throat?: No Do you have a cough?: No Do you have any weakness?: No Do you have any diarrhea?: No Are you experiencing any unusual bleeding?: No Do you have any muscle aches/pain?: No Do you have any abdominal pain?: Yes Are you experiencing loss of taste or smell?: No Other Medical History Have you received the Flu Vaccine for this season: Yes Have you received the Pneumonia Vaccine: No ROS Obtained: Yes All systems reviewed & no additional complaints except as documented Physical Exam General General appearance: alert and anxious Head Head exam: atraumatic Eye Eye exam: Present PERRL and EOMI Neck Neck exam: Present full ROM Respiratory Respiratory exam: Present normal lung sounds bilaterally; Absent respiratory distress Cardiovascular Cardiovascular exam: Present normal rhythm and tachycardia; Absent JVD Abdominal Exam Abdominal exam: Present soft, distention and tenderness; Absent guarding or rebound Abdominal tenderness: Present RLQ, LLQ and suprapubic Extremities Exam Extremities exam: Present normal inspection; Absent tenderness, edema or joint swelling Neurological Exam Neurological exam: Present alert and oriented X3 Psychiatric Psychiatric exam: Present normal affect and anxious Skin Skin exam: Present warm, dry, intact and normal color Medical Decision Making Medical Records Medical records reviewed: Yes I reviewed the patient's medical records. Screening: Per USPSTF and CDC recommendations, given the prevalence of disease in our region, it is our hospital?s policy to screen for HIV and viral Hepatitis for all patients aged 18 and over and those with ongoing risk factors. Ramses Inquiry Pt receiving controlled substance: No Vital Signs: 03/12/24 21:05 03/12/24 21:30 Temperature 97.9 F Temperature Source Oral Pulse Rate 109 H Pulse Rate [Right Radial] 109 H Respiratory Rate 16 17 Blood Pressure 159/103 H Blood Pressure [Right Arm] 192/111 H Blood Pressure Mean 122 Blood Pressure Mean [Right Arm] 138 Blood Pressure Source [Right Arm] Automatic Cuff Blood Pressure Position [Right Arm] Supine 02 Sat by Pulse Oximetry 96 97 Oxygen Delivery Method Room Air Lab Data Lab results reviewed: Yes I reviewed the patient's lab results. Lab Results 03/12/24 21:15: WBC 9.9, RBC 4.23, Hgb 10.8 L, Hct 34.5 L, MCV 81.6, MCH 25.5 L, MCHC 31.3 L, RDW 16.1, Plt Count 248, MPV 9.9, Neut % (Auto) 73.2, Lymph % (Auto) 19.9, Heard % (Auto) 5.2, Eos % (Auto) 0.8, Baso % (Auto) 0.5, Neut # (Auto) 7.2, Lymph # (Auto) 2.0, Heard # (Auto) 0.5, Eos # (Auto) 0.1, Baso # (Auto) 0.1, Sodium 134 L, Potassium 3.2 L, Chloride 102, Carbon Dioxide 24, Anion Gap 11.2, BUN 13, Creatinine 0.60, Estimated Creat Clear 184, Estimated GFR 112, Est GFR ( Amer) 136, Glucose 107 H, Calcium 9.3, Total Bilirubin 0.2, AST 34, ALT 31, Alkaline Phosphatase 85, Total Protein 6.6, Albumin 4.1, Globulin 2.5, Albumin/Globulin Ratio 1.6, Serum HCG, Qual Negative 03/12/24 21:37: Urine Color Yellow, Urine Appearance Clear, Urine pH 6.0, Ur Specific [place] <= 1.005, Urine Protein Negative, Urine Glucose (UA) Negative, Urine Ketones Negative, Urine Blood Negative, Urine Nitrate Negative, Urine Bilirubin Negative, Urine Urobilinogen 0.2, Ur Leukocyte Esterase Negative, Urine RBC Occasional, Urine WBC Occasional, Ur Squamous Epith Cells 3-5, Urine Bacteria Trace 03/12/24 21:15 03/12/24 21:15 Orders (Tests/Meds): ED MEDICATIONS Discontinued Medications Generic Name Dose Route Start Last Admin Trade Name Freq PRN Reason Stop Dose Admin Hydroxyzine Pamoate 25 mg 03/12/24 21:33 03/12/24 21:46 Hydroxyzine Pamoate 25mg Capsule PO 03/12/24 21:34 25 mg ONCE ONE Administration ORDERS Category Date Time Status KUB (single view) [XR KUB] Stat Exams 03/12/24 21:33 Ordered CBC w/Auto Diff [Complete Blood Count Auto Diff] Stat Lab 03/12/24 21:15 Completed CMP [Comprehensive Metabolic Panel] Stat Lab 03/12/24 21:15 Completed Serum [HCG Qualitative, Serum] Stat Lab 03/12/24 21:15 Completed Urinalysis and Microscopic Stat Lab 03/12/24 21:37 Completed Medical Decision Narrative: In summary, this is a 38-year-old female presenting with abdominal pain. Differential diagnosis includes was not limited to, constipation, acute cystitis, pancreatitis, ectopic , diverticulitis, among others. Patient is extremely anxious and requesting Ativan. Critical Care Critical Care Time Critical Care Time: No
[2024-03-12 23:00] VITALS: BP 174/108; PULSE 90; O2SAT 99
[2024-03-12 23:50] VITALS: BP 170/99; PULSE 80; O2SAT 100
--- NOTE | 2024-03-12 23:54 | PC.NURSE ---
Patient refuses enema at this point in time. She states she is too anxious to do the enema. notified.
[2024-03-12] MEDS: LORazepam 1MG TABLET 1 MG PO (23:57)
[2024-03-13] VITALS: BP 169/100; PULSE 96; O2SAT 99
--- NOTE | 2024-03-13 00:23 | PC.NURSE ---
Patient agreeable to try enema now
[2024-03-13 01:12] VITALS: BP 148/74; PULSE 74; RESP 16; TEMP 36.6; O2SAT 98
--- NOTE | 2024-03-13 01:13 | PC.NURSE ---
Patient IV removed. Catheter tip intact. Bleeding controlled.
== END 2024-03-13 01:23 | disposition home or self-care (01) ==
PROVIDERS: Emergency Provider Student in an Organized Health Care Education/Training Program
DX: K59.00 Constipation, unspecified (principal); R10.30 Lower abdominal pain, unspecified
CPT/HCPCS: 74018; 80053; 81001; 84703; 85025; 99283